=== PATIENT | male | born 1945 | race Caucasian/White ===

== ENCOUNTER 2019-03-12 14:36 | Inpatient (IN) | payer OTHER ==
--- OUTSIDE RECORDS SUMMARY | 2019-03-12 14:49 | XMS REPORT | Continuity of Care Document ---
:1945 Author Organization [employer] Care Team Providers Name Role Phone [employer] Unavailable Unavailable Problems Problem Status Onset Classification Date Comments Source Date Reported ABD PAIN Active 05/22/20 [facility] 17 ABD PAIN . Active 05/22/20 [facility] 17 WOUND Active 02/28/20 [facility] 17 LEG WEAKNESS Active 07/27/20 [facility] BILATERAL 16 WEAKNESS Active 05/30/20 [facility] 16 Discharge 05/30/20 06/02/2016 [facility] Diagnosis: 16 Fatigue Discharge 05/30/20 06/02/2016 [facility] Diagnosis: Acute 16 renal insufficiency Discharge 05/30/20 06/02/2016 [facility] Diagnosis: 16 Dehydration AMS Active 02/18/20 [facility] 15 SOB Active 06/08/20 [facility] 14 Anxiety Active Problem 06/13/2017 [facility] Outpatient Imaging [facility] Arthritis Active Problem 06/13/2017 [facility]patient Imaging [facility] Bipolar Resolved Problem 06/13/2017 [facility]patient Imaging [facility] CHF, acute Resolved Problem 06/13/2017 [facility]patient Imaging [facility] COPD Resolved Problem 06/13/2017 [facility] HS Outpatient Imaging [facility] COPD - Chronic Active Problem 06/13/2017 obstructive [facility], pulmonary disease HS Outpatient Imaging [facility] Depression Active Problem 06/13/2017 [facility] HS Outpatient Imaging [facility] Diabetes mellitus Active Problem 06/13/2017 [facility] Outpatient Imaging [facility] DM (Confirmed) Resolved Problem 06/13/2017 [facility] GERD - Active Problem 06/13/2017 Gastro-esophageal [facility], reflux disease [facility] Glaucoma Active Problem 06/13/2017 [facility]patient Imaging [facility] HTN - Resolved Problem 06/13/2017 Hypertension [facility], HS Outpatient Imaging [facility] Hypertension Active Problem 06/13/2017 [facility] Narcosis Active Problem 06/13/2017 [facility] Schizophrenia Resolved Problem 06/13/2017 [facility] Aortic aneurysm Resolved Problem 06/13/2017 [facility] Hyperlipidemia Active Problem 06/13/2017 [facility] Bleeding ulcer Resolved Problem 06/13/2017 [facility] CHR AIRWAY Active [facility] OBSTRUCT NEC ALTERED MENTAL Active [facility] STATUS UNSPECIFIED OPEN Active [facility] WOUND, RIGHT FOOT, SUBS NON-PRS CHRONIC Active [facility] ULCER OTH PRT RIGHT FOOT TYPE 2 DIABETES W Active [facility] DIABETIC PERIPHERAL AN TINEA UNGUIUM Active [facility] TYPE 2 DIABETES Active [facility] MELLITUS WITH DIABETIC P NON-PRS CHRONIC Active [facility] ULCER OTH PRT R FOOT STREET CORNS AND Active [facility] CALLOSITIES MUSCLE WEAKNESS Active [facility] (GENERALIZED) CHOLECYSTITIS, Active [facility] UNSPECIFIED Medications Medication Details Route Status Patient Ordering Order Source Instructions Provider Date fluconazole 100 mg 200 mg=2 tab, Active oral tablet PO, [id number], 0 2016 [facility] Refill(s) Saline Flush 0.9% 10 mL, Route: Inactive IVP, Drug 2016 [facility] Form: INJ, Dosing Weight 118.682, kg, Q8H, Start date: 06/10/17 16:00:00 CDT, Duration: 30 day, Stop date: 07/10/17 8:00:00 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 Lidocaine 5 mL, Route: Inactive Hydrochloride 10 INTRADERM, 2016 [facility] MG/ML Injectable Drug Form: Solution INJ, Dosing Weight 118.682, kg, ONCALL, Start date: 06/10/17 16:00:00 CDT, Duration: 30 day, Stop date: 07/10/17 14:59:00 CSTNotes: Preservative free. (Same as: Xylocaine MPF) Saline Flush 0.9% 10 mL, Route: Inactive IVP, Drug 2016 [facility] Form: INJ, Dosing Weight 118.682, kg, PRN, PRN Line Flush, Start date: 06/10/17 15:41:00 CDT, Duration: 30 day, Stop date: 07/10/17 14:40:00 CSTNotes: (Same as: BD Posiflush) Lidocaine 5 mL, Route: Inactive Hydrochloride 10 INTRADERM, 2016 [facility] MG/ML Injectable Dosing Weight Solution 118.682, kg, ONCALL, Start date: 06/10/17 14:00:00 CDT, Duration: 30 day, Stop date: 07/10/17 12:59:00 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 BD Normal Saline 10 mL, Route: Inactive Flush IV, Drug Form: 2017 [facility] INJ, Q8H-06, Start date: 06/10/17 14:00:00 CDT, Duration: 30 day, Stop date: 07/10/17 6:00:00 CSTNotes: (Same as: BD Posiflush) Saline Flush 0.9% 10 mL, Route: Inactive IVP, Drug 2016 [facility] Form: INJ, Dosing Weight 118.682, kg, PRN, PRN Line Flush, Start date: 06/10/17 13:26:00 CDT, Duration: 30 day, Stop date: 07/10/17 12:25:00 CSTNotes: (Same as: BD Posiflush) Lidocaine 5 mL, Route: Inactive Hydrochloride 10 INTRADERM, 2017 [facility] MG/ML Injectable Drug Form: Solution INJ, Dosing Weight 118.682, kg, ONCALL, Start date: 06/10/17 13:00:00 CDT, Duration: 30 day, Stop date: 07/10/17 11:59:00 CSTNotes: Preservative free. (Same as: Xylocaine MPF) Saline Flush 0.9% 10 mL, Route: Inactive IVP, Drug 2016 [facility] Form: INJ, Dosing Weight 118.682, kg, PRN, PRN Line Flush, Start date: 06/10/17 12:59:00 CDT, Duration: 30 day, Stop date: 07/10/17 11:58:00 CSTNotes: (Same as: BD Posiflush) Protonix 40 mg, 1 tab, No Longer Route: PO, Active 2016 [facility] Drug form: ECTAB, Before Dinner, Dosing Weight 118.682, kg, Start date: 06/09/17 16:30:00 CDT, Duration: 30 day, Stop date: 07/08/17 16:30:00 CSTNotes: Tablet should not be chewed or crushed. (Same as: Protonix) Miralax 17 gm, 1 pkt, No Longer Route: PO, Active 2016 [facility] Drug form: PWDR, Daily, Dosing Weight 118.682, kg, PRN Constipation, Start date: 06/09/17 12:11:00 CDT, Duration: 30 day, Stop date: 07/09/17 12:10:00 CSTNotes: Dissolve in 8 oz of water or juice. (Same as: Miralax) Maalox Advanced 15 mL, Route: No Longer Regular Strength PO, Drug Form: Active 2016 [facility] SUSP SUSP, Dosing Weight 118.682, kg, TID, PRN as needed for indigestion, Start date: 06/06/17 21:12:00 CDT, Duration: 30 day, Stop date: 07/06/17 21:11:00 CSTNotes: (aluminum hydroxide-magn esium hyd-simethicon e [phone]/5 ml 30 ml ud [place]) Betaxolol 2.5 2 drp, Route: Inactive MG/ML Ophthalmic BOTH EYES, 2016 [facility] Suspension BID, Drug [Betoptic S] form: SUSP, Start date: 06/05/17 17:00:00 CDT, Duration: 30 day, Stop date: 07/05/17 9:00:00 CDT Zosyn 3.375 gm, No Longer Route: IVPB, Active 2016 [facility] [id number], Dosing Weight 118.682, kg, CrCl >=20 ml/min infuse over 4 hours, Start date: 06/03/17 11:00:00 CDT, Stop date: 06/25/17 19:00:00 CDT, ABX Indication: Fever of Unknown Source 0-60 days of ageNotes: (Same as: Zosyn) Dosing based on Piperacillin component MEDICATION WASTE Product Size: 3375 mg Product Wasted: ___ mg Hydralazine 10 mg, 0.5 mL, No Longer Route: IV, Active 2016 [facility] Drug form: INJ, Q6H, Dosing Weight 118.682, kg, PRN Hypertension, Start date: 06/03/17 2:17:00 CDT, Duration: 30 day, Stop date: 07/03/17 2:16:00 CDTNotes: (Same as: Apresoline) Push over 5 minutes Diflucan 200 mg, 2 tab, No Longer Route: PO, Active 2016 [facility] Drug form: TAB, [id number], Dosing Weight 118.682, kg, Start date: 06/01/17 15:00:00 CDT, Stop date: 06/25/17 15:00:00 CDTNotes: (Same as: Diflucan) Lasix 20 mg, 2 mL, Inactive Route: IVP, 2016 [facility] Drug form: INJ, ONCE, Dosing Weight 118.682, kg, Start date: 06/01/17 10:04:00 CDT, Stop date: 06/01/17 10:04:00 CDTNotes: (Same as: Lasix) Diflucan 200 mg, 100 No Longer mL, Route: Active 2016 [facility] IVPB, Drug form: INJ, [id number], Dosing Weight 118.682, kg, Start date: 05/31/17 17:00:00 CDT, Duration: 30 day, Stop date: 06/29/17 17:00:00 CDTNotes: (Same as: Diflucan) Do not refrigerate Flagyl 500 mg, 100 No Longer mL, Route: Active 2016 [facility] IVPB, Drug form: INJ, [id number], Dosing Weight 118.682, kg, Start date: 05/31/17 16:00:00 CDT, Duration: 10 day, Stop date: 06/10/17 8:00:00 CDT, ABX Indication: Intra-abdomina l InfectionNotes : (Same as: Flagyl) Avoid alcohol. Lovenox 30 mg, Route: Inactive SUB-Q, Drug 2016 [facility] form: INJ, [id number], Dosing Weight 118.682, kg, For CrCl Buspirone 5 mg, 1 tab, No Longer Route: PO, Active 2016 [facility] Drug form: TAB, BID, Dosing Weight 118.682, kg, Start date: 05/28/17 21:00:00 CDT, Duration: 30 day, Stop date: 06/27/17 9:00:00 CDTNotes: (Same As: BuSpar) Acetaminophen 650 mg, 2 tab, No Longer Route: PO, Active 2016 [facility] Drug form: TAB, Q6H, Dosing Weight 118.682, kg, PRN For Temp > 100.4 F, Start date: 05/28/17 0:32:00 CDT, Duration: 30 day, Stop date: 06/27/17 0:31:00 CDTNotes: Do not exceed 4 gm/day. (Same as: Tylenol) Dulcolax Laxative 10 mg, 1 supp, No Longer Route: VA, Active 2016 [facility] Drug form: SUPP, ONCE, Dosing Weight 118.682, kg, PRN as needed for constipation, Start date: 05/26/17 15:24:00 CDTNotes: (Same As: Dulcolax, Bisco-Lax) timolol ophthalmic 1 drp, Route: No Longer BOTH EYES, Active 2016 [facility] QAM, Drug form: SOLN, Start date: 05/26/17 14:00:00 CDT, Duration: 30 day, Stop date: 06/25/17 9:00:00 CDTNotes: (Same As: Timoptic, Betimol) magnesium citrate 300 ml, Route: Inactive 58.2 MG/ML Oral PO, Drug Form: 2016 [facility] Solution LIQ, Dosing Weight 118.682, kg, ONCE, Start date: 05/25/17 13:32:00 CDT, Stop date: 05/25/17 13:32:00 CDTNotes: (Same as: Citrate of Magnesia) Concentration: 1.745 gm / 30 mL Albuterol 0.833 3 mL, Route: No Longer MG/ML / INHALATION, Active 2016 [facility] Ipratropium Drug Form: [place] 0.167 SOLN, Dosing MG/ML Inhalant Weight Solution 118.682, kg, RQ4H, Start date: 05/25/17 11:00:00 CDT, Duration: 30 day, Stop date: 06/24/17 7:00:00 CDTNotes: (Same as: Duoneb) Budesonide 0.25 0.5 mg, 2 mL, No Longer MG/ML Inhalant Route: NEB, Active 2016 [facility] Solution Drug form: [Pulmicort] SUSP, RBID, Dosing Weight 118.682, kg, Start date: 05/25/17 7:57:00 CDT, Duration: 30 day, Stop date: 06/23/17 20:00:00 CDTNotes: (Same As: Pulmicort) Budesonide 0.25 0.5 mg, 2 mL, No Longer MG/ML Inhalant Route: NEB, Active 2016 [facility] Solution Drug form: [Pulmicort] SUSP, RBID, Dosing Weight 118.682, kg, Start date: 05/24/17 20:00:00 CDT, Duration: 30 day, Stop date: 06/23/17 8:00:00 CDTNotes: (Same As: Pulmicort) Dextrose 50% in 50 mL, Route: No Longer Water IV IVP, Start Active 2016 [facility] date: 05/24/17 19:24:00 CDT, Stop date: 05/24/17 19:24:00 CDT Dextrose 25 gm, Route: Inactive IVPB, ONCE, 2016 [facility] Dosing Weight 118.682, kg, Start date: 05/24/17 18:34:00 CDT, Stop date: 05/24/17 18:34:00 CDT Insulin regular 15 unit, Inactive Route: IV, 2016 [facility] ONCE, Dosing Weight 118.682, kg, Priority: NOW, Start date: 05/24/17 18:23:00 CDT, Stop date: 05/24/17 18:23:00 CDT sodium chloride 1,000 mL, No Longer 0.9% 1000 ml INJ Rate: 75 Active 2016 [facility] 1,000 mL ml/hr, Infuse over: 13.3 hr, Route: IV, Dosing Weight 118.682 kg, Total Volume: 1,000, Start date: 05/24/17 12:41:00 CDT, Stop date: 06/23/17 12:40:00 CDT influenza virus 0.5 mL, Route: No Longer vaccine, IM, Drug Form: Active 2016 [facility] inactivated SUSP, Daily, Start date: 05/24/17 9:00:00 CDT, Duration: 1 doses or times, Stop date: 05/24/17 9:00:00 CDTNotes: (Same as: Fluzone Quadrivalent, Fluarix Quadrivalent) For 3 years of age and older (0.5 mL IM) Shake well before use Januvia 100 mg, 1 tab, No Longer Route: PO, Active 2016 [facility] Drug form: TAB, Daily, Dosing Weight 118.682, kg, Start date: 05/24/17 9:00:00 CDT, Stop date: 06/22/17 9:00:00 CDTNotes: (Same as: Januvia) omega-3 1,000 mg, 1 No Longer polyunsaturated cap, Route: Active 2016 [facility] fatty acids PO, Drug form: CAP, Daily, Dosing Weight 118.682, kg, Start date: 05/24/17 9:00:00 CDT, Duration: 30 day, Stop date: 06/22/17 9:00:00 CDTNotes: (Same as: MaxEPA, [place] 3 fish oil ) Non-Formulary Drug Vitamin D3 2,000 No Longer IntlUnit, 2 Active 2016 [facility] tab, Route: PO, Drug form: TAB, Daily, Dosing Weight 118.682, kg, Start date: 05/24/17 9:00:00 CDT, Duration: 30 day, Stop date: 06/22/17 9:00:00 CDTNotes: Same as : Vitamin D3 venlafaxine 75 mg, 2 tab, No Longer Route: PO, Active 2016 [facility] Drug form: TAB, Daily, Dosing Weight 118.682, kg, Start date: 05/24/17 9:00:00 CDT, Duration: 30 day, Stop date: 06/22/17 9:00:00 CDTNotes: (Same As: Effexor) Albuterol 0.833 3 ml, Route: No Longer MG/ML / NEB, Drug Active 2016 [facility] Ipratropium Form: SOLN, [place] 0.167 Dosing Weight MG/ML Inhalant 118.682, kg, Solution [DuoNeb] Q4H, PRN Respiratory Protocol, Start date: 05/24/17 8:46:00 CDT, Duration: 30 day, Stop date: 06/23/17 8:45:00 CDTNotes: (Same as: Duoneb) tiotropium 0.018 18 microgram, Inactive MG/ACTUAT Inhalant 1 inhalation, 2016 [facility] Powder [Spiriva] Route: INHALATION, Drug form: CAP, RDaily, Dosing Weight 118.682, kg, Start date: 05/24/17 8:00:00 CDT, Duration: 30 day, Stop date: 06/22/17 8:00:00 CDTNotes: (Same As: Spiriva). Thyroxine 50 microgram, No Longer 1 tab, Route: Active 2016 [facility] PO, Drug form: TAB, [id number], Dosing Weight 118.682, kg, Start date: 05/24/17 6:30:00 CDT, Duration: 30 day, Stop date: 06/22/17 6:30:00 CDTNotes: Take 1 hour before or 2 hours after meal; Enteral feeds may interefere with the absorption of this medication.(Sa me as:Levothroid, Synthroid) Trazodone 25 mg, 0.5 No Longer tab, Route: Active 2016 [facility] PO, Drug form: TAB, Bedtime, Dosing Weight 118.682, kg, Start date: 05/23/17 21:00:00 CDT, Stop date: 06/21/17 21:00:00 CDTNotes: (Same As: Desyrel) Risperidone 2 mg, 2 tab, No Longer Route: PO, Active 2016 Drug form: TAB, Bedtime, Dosing Weight 118.682, kg, Start date: 05/23/17 21:00:00 CDT, Duration: 30 day, Stop date: 06/21/17 21:00:00 CDTNotes: (Same as: Risperdal) latanoprost 0.05 1 drp, Route: No Longer MG/ML Ophthalmic BOTH EYES, Active 2016 [facility] Solution Bedtime, Drug form: SOLN, Start date: 05/23/17 21:00:00 CDT, Duration: 30 day, Stop date: 06/21/17 21:00:00 CDTNotes: Keep refrigerated. (Same as:Xalatan) Opened bottle may be stored at room temperature for 6 weeks Insulin Glargine 30 unit, 0.3 No Longer 100 UNT/ML mL, Route: Active 2016 [facility] Injectable SUB-Q, Drug Solution [Lantus] form: SOLN, Bedtime, Dosing Weight 118.682, kg, Start date: 05/23/17 21:00:00 CDT, Duration: 30 day, Stop date: 06/21/17 21:00:00 CDTNotes: (Same as: Lantus) Do not hold insulin without contacting prescriber WASTE: F/P - Black; E - Municipal Trash Bin "single patient use only" Fenofibrate 145 mg, 1 tab, No Longer Route: PO, Active 2016 [facility] Drug form: TAB, Bedtime, Dosing Weight 118.682, kg, Start date: 05/23/17 21:00:00 CDT, Duration: 30 day, Stop date: 06/21/17 21:00:00 CDTNotes: (Same as: Tricor) 24 HR Divalproex 500 mg, 1 tab, No Longer Sodium 500 MG Route: PO, Active 2016 [facility] Extended Release Drug form: Tablet ERTAB, Bedtime, Dosing Weight 118.682, kg, Start date: 05/23/17 21:00:00 CDT, Duration: 30 day, Stop date: 06/21/17 21:00:00 CDTNotes: (Same as: Depakote ER) Once daily dosing; indicated for migraines. Divalproex sodium extended-relea se tab. Do not chew or crush. "Do Not Crush" Ipratropium 500 microgram, No Longer 2.5 mL, Route: Active 2016 [facility], Drug form: SOLN, RQID, Dosing Weight 118.682, kg, Start date: 05/23/17 19:00:00 CDT, Duration: 30 day, Stop date: 06/22/17 15:00:00 CDTNotes: SEE RT DOCUMENTATION (Same as:Atrovent) Zosyn + sodium 3.375 gm, No Longer chloride 0.9% INJ Route: IVPB, Active 2016 [facility] 100 mL [id number], Start date: 05/23/17 17:00:00 CDT, Duration: 10 day, Stop date: 06/02/17 9:00:00 CDT, ABX Indication: Other (specify in Comments)Notes : (Same as: Zosyn) Dosing based on Piperacillin component MEDICATION WASTE Product Size: 3375 mg Product Wasted: ___ mg Brimonidine 1 drp, Route: No Longer tartrate 1.5 MG/ML BOTH EYES, Active 2016 [facility] Ophthalmic BID, Drug Solution form: SOLN, Start date: 05/23/17 17:00:00 CDT, Duration: 30 day, Stop date: 06/22/17 9:00:00 CDTNotes: (Same As: Alphagan) Betaxolol 2.5 2 drp, Route: No Longer MG/ML Ophthalmic BOTH EYES, Active 2016 [facility] Suspension BID, Drug [Betoptic S] form: SUSP, Start date: 05/23/17 17:00:00 CDT, Duration: 30 day, Stop date: 06/22/17 9:00:00 CDT Symbicort 160/4.5 2 puff, Route: No Longer inhalation aerosol INHALATION, Active 2016 [facility] with adapter Drug Form: AERO/A, Dosing Weight 118.682, kg, RQ12H, Start date: 05/23/17 16:00:00 CDT, Duration: 30 day, Stop date: 06/22/17 4:00:00 CDTNotes: (Same as: Symbicort) WASTE: Aerosol - Return to Pharmacy Zosyn 2.25 gm, Inactive Route: IV, 2016 [facility] Q8H, Dosing Weight 109.545, kg, Start date: 05/23/17 16:00:00 CDT, Duration: 30 day, Stop date: 06/22/17 8:00:00 CDT, ABX Indication: Intra-abdomina l Infection metoprolol 25 mg, 1 tab, No Longer tartrate Route: PO, Active 2016 [facility] Drug form: TAB, Q8H-06, Dosing Weight 118.682, kg, Start date: 05/23/17 14:00:00 CDT, Duration: 30 day, Stop date: 06/22/17 6:00:00 CDTNotes: (Same as: Lopressor) Zosyn 2.25 gm, Inactive Route: IVPB, 2016 [facility] Drug form: PDR/INJ, ABXQ8H, Dosing Weight 118.682, kg, Start date: 05/23/17 13:00:00 CDT, Duration: 10 day, Stop date: 06/02/17 5:00:00 CDT, ABX Indication: Intra-abdomina l Infection Buspirone 5 mg, Route: No Longer PO, Drug form: Active 2016 [facility] TAB, TID, Dosing Weight 118.682, kg, Start date: 05/23/17 13:00:00 CDT, Duration: 30 day, Stop date: 06/22/17 9:00:00 CDTNotes: (Same As: BuSpar) Aspirin 81 mg, 1 tab, No Longer Route: PO, Active 2016 [facility] Drug form: ECTAB, Daily, Dosing Weight 118.682, kg, Start date: 05/23/17 13:00:00 CDT, Duration: 30 day, Stop date: 06/22/17 9:00:00 CDTNotes: Do not crush or chew. (Same As: Ecotrin) Amlodipine 10 mg, 2 tab, No Longer Route: PO, Active 2016 [facility] Drug form: TAB, Daily, Dosing Weight 118.682, kg, Start date: 05/23/17 13:00:00 CDT, Duration: 30 day, Stop date: 06/22/17 9:00:00 CDTNotes: (Same as: Norvasc) Amiodarone 200 mg, 1 tab, No Longer Route: PO, Active 2016 [facility] Drug form: TAB, Daily, Dosing Weight 118.682, kg, Start date: 05/23/17 13:00:00 CDT, Duration: 30 day, Stop date: 06/22/17 9:00:00 CDTNotes: (Same as: Cordarone) Alprazolam 0.5 mg, 1 tab, No Longer Route: PO, Active 2016 [facility] Drug form: TAB, Q8H, Dosing Weight 118.682, kg, PRN Anxiety, Start date: 05/23/17 12:42:00 CDT, Duration: 30 day, Stop date: 06/22/17 12:41:00 CDTNotes: With food or milk (Same as: Xanax) Insulin Lispro 2 unit, 0.02 No Longer mL, Route: Active 2016 [facility] SUB-Q, Drug form: SOLN, Sliding Scale, Dosing Weight 118.682, kg, PRN Blood Glucose Results, Start date: 05/23/17 12:40:00 CDT, Duration: 30 day, Stop date: 06/22/17 12:39:00 CDTNotes: (Same as: Humalog ) Roll in palms of hands gently; Do not shake `vigorously. "Single Patient Use Only " (Restricted to patients requiring a dose > 60 units) WASTE: F/P - Black; E - [employer] Assist Trash Bin Stable for 28 days at room temperature. Expires in days from Date Dextrose 50% 12.5 gm, 25 No Longer Syringe mL, Route: Active 2016 [facility] IVP, Drug Form: INJ, Dosing Weight 118.682, kg, PRN, PRN Blood Glucose Results, Start date: 05/23/17 12:40:00 CDT, Duration: 30 day, Stop date: 06/22/17 12:39:00 CDT Glucagon 1 mg, Route: No Longer IM, Drug form: Active 2016 [facility] PDR/INJ, PRN, Dosing Weight 118.682, kg, PRN Blood Glucose Results, Start date: 05/23/17 12:40:00 CDT, Duration: 30 day, Stop date: 06/22/17 12:39:00 CDT Baclofen 10 mg, 1 tab, No Longer Route: PO, Active 2016 [facility] Drug form: TAB, Q8H, Dosing Weight 118.682, kg, PRN as needed for muscle spasm, Start date: 05/23/17 12:15:00 CDT, Duration: 30 day, Stop date: 06/22/17 12:14:00 CDTNotes: (Same As: Lioresal) Aspirin 81 MG 81 mg=1 tab, No Longer Chewable Tablet PO, Daily, Active 2016 [facility] tab, 0 Refill(s) 24 HR Divalproex 500 mg=1 tab, Active Sodium 500 MG PO, Bedtime, # 2017 [facility] Extended Release 30 tab, 0 Tablet Refill(s) Zosyn + sodium 3.375 gm, Inactive chloride 0.9% INJ Route: IVPB2016 [facility] 100 mL [id number], Start date: 05/23/17 11:00:00 CDT, Duration: 30 day, Stop date: 06/22/17 3:00:00 CDT, ABX Indication: Intra-abdomina l InfectionNotes : (Same as: Zosyn) Dosing based on Piperacillin component MEDICATION WASTE Product Size: 3375 mg Product Wasted: ___ mg Zosyn + sodium 3.375 gm, Inactive chloride 0.9% INJ Route: IV2016 [facility] 100 mL ONCE, Start date: 05/23/17 10:21:00 CDT, Stop date: 05/23/17 10:21:00 CDT, ABX Indication: Intra-abdomina l InfectionNotes : (Same as: Zosyn) Dosing based on Piperacillin component MEDICATION WASTE Product Size: 3375 mg Product Wasted: ___ mg Morphine 2 mg, 1 mL, No Longer Route: IVP, Active 2016 [facility] Drug form: SOLN, Q4H, Dosing Weight 109.545, kg, PRN Pain Score 7-10, Priority: STAT, Start date: 05/23/17 9:57:00 CDT, Stop date: 06/22/17 9:56:00 CDT Zofran 4 mg, 2 mL, No Longer Route: IVP, Active 2016 [facility] Drug form: INJ, Q6H, Dosing Weight 109.545, kg, PRN Nausea, Priority: STAT, Start date: 05/23/17 9:57:00 CDT, Duration: 30 day, Stop date: 06/22/17 9:56:00 CDTNotes: (Same as: Zofran) MEDICATION WASTE Product Size: 4 mg Product Wasted: ___ mg Morphine 4 mg, Route: Inactive IVP, ONCE, 2016 [facility] Dosing Weight 109.545, kg, Priority: STAT, Start date: 05/23/17 9:27:00 CDT, Stop date: 05/23/17 9:27:00 CDT Omnipaque 300 100 mL, Route: Inactive injectable IVP, Dosing 2016 [facility] solution Weight 109.545, kg, ONCALL, GFR > 45 mL/min, STAT, Start date: 05/23/17 6:50:00 CDT, Duration: 1 doses or times Morphine 4 mg, 1 mL, Inactive Route: IVP, 2016 [facility] Drug form: SOLN, ONCE, Dosing Weight 109.545, kg, Priority: STAT, Start date: 05/23/17 6:10:00 CDT, Stop date: 05/23/17 6:10:00 CDTNotes: (Same as:MORPhine Sulfate) Saline Flush 0.9% 10 mL, Route: No Longer IVP, Drug Active 2016 [facility] Form: INJ, Dosing Weight 109.545, kg, PRN, PRN Line Flush, Start date: 05/23/17 6:09:00 CDT, Duration: 30 day, Stop date: 06/22/17 6:08:00 CDTNotes: (Same as: BD Posiflush) tiotropium 0.018 18 microgram, No Longer MG/ACTUAT Inhalant 1 inhalation, Active 2015 [facility] Powder [Spiriva] Route: INHALATION, Drug form: CAP, Daily, Dosing Weight 109.545, kg, Start date: 07/29/16 9:00:00 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 One-A-Day Men 50 1 tab, Route: No Longer Plus PO, Dosing Active 2015 [facility] Weight 109.545, kg, Daily, Start date: 07/29/16 9:00:00 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, Duration: 30 day, Stop date: 08/27/16 9:00:00 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 Aspirin 81 mg, Route: No Longer PO, Daily, Active 2015 [facility] Dosing Weight 109.545, kg, Start date: 07/29/16 9:00:00 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, Duration: 30 day, Stop date: 08/27/16 9:00:00 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 Levemir FlexPen 15 unit, 0.15 No Longer mL, Route: Active 2015 [facility] SUB-Q, Drug form: INJ, Bedtime, Start date: 07/28/16 21:00:00 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, Duration: 30 day, Stop date: 08/26/16 21:00:00 CSTNotes: Same as Levemir Do not hold insulin without contacting prescriber WASTE: F/P - Black; E - Municipal Trash Bin "single patient use only" Trazodone 50 mg, 1 tab, No Longer Route: PO, Active 2015 [facility] Drug form: TAB, Bedtime, Dosing Weight 109.545, kg, Start date: 07/28/16 21:00:00 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, Duration: 30 day, Stop date: 08/26/16 21:00:00 CSTNotes: (Same As: Desyrel) Risperidone 2 mg, 2 tab, No Longer Route: PO, Active 2015 [facility] Drug form: TAB, Bedtime, Dosing Weight 109.545, kg, Start date: 07/28/16 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, Duration: 30 day, Stop date: 08/27/16 9:00:00 CSTNotes: (Same as: Colace) (Do Not Crush) Brimonidine 1 drp, Route: No Longer tartrate 1.5 MG/ML BOTH EYES, Active 2015 [facility] Ophthalmic BID, Drug Solution form: SOLN, Start date: 07/28/16 17:00:00 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, Duration: 30 day, Stop date: 08/27/16 9:00:00 CSTNotes: (Same As: Alphagan) Betaxolol 2.5 2 drp, Route: Inactive MG/ML Ophthalmic BOTH EYES, 2015 [facility] Suspension BID, Drug [Betoptic S] form: SUSP, Start date: 07/28/16 17:00:00 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, Duration: 30 day, Stop date: 08/27/16 9:00:00 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 timolol ophthalmic 1 drp, Route: No Longer BOTH EYES, Active 2015 [facility] BID, Drug form: SOLN, Start date: 07/28/16 17:00:00 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, Stop date: 08/27/16 9:00:00 CSTNotes: (Same As: Timoptic, Betimol) Buspirone 5 mg, 1 tab, No Longer Route: PO, Active 2015 [facility] Drug form: TAB, TID, Dosing Weight 109.545, kg, Start date: 07/28/16 15:00:00 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, Duration: 30 day, Stop date: 08/27/16 9:00:00 CSTNotes: (Same As: BuSpar) Ipratropium 500 microgram, Inactive Route: NEB, 2015 [facility] QID, Dosing Weight 109.545, kg, Start date: 07/28/16 13:00:00 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, Duration: 30 day, Stop date: 08/27/16 9:00:00 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 Alprazolam 0.5 mg, Route: Inactive PO, TID, 2015 [facility] Dosing Weight 109.545, kg, Start date: 07/28/16 13:00:00 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, Duration: 30 day, Stop date: 08/27/16 9:00:00 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 Thyroxine 50 microgram, No Longer 1 tab, Route: Active 2015 [facility] PO, Drug form: TAB, [id number], Dosing Weight 109.545, kg, Start date: 07/28/16 11:30:00 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, Duration: 30 day, Stop date: 08/27/16 6:30:00 CSTNotes: Take 1 hour before or 2 hours after meal; Enteral feeds may interefere with the absorption of this medication.(Sa me as:Levothroid, Synthroid) multivitamin with 1 tab, Route: No Longer minerals PO, Drug Form: Active 2015 [facility] TAB, Daily, Start date: 07/28/16 11:00:00 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, Duration: 30 day, Stop date: 08/27/16 9:00:00 CSTNotes: Give with food. (Same As: Stress 600 with Zinc) WASTE: F/P - Black; E - Municipal Trash Bin omega-3 1,000 mg, 1 No Longer polyunsaturated cap, Route: Active 2015 [facility] fatty acids PO, Drug form: CAP, Daily, Dosing Weight 109.545, kg, Start date: 07/28/16 11:00:00 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, Duration: 30 day, Stop date: 08/27/16 9:00:00 CSTNotes: (Same as: Lovaza, formally named [place]) "Do Not Crush" Lisinopril 20 mg, 1 tab, No Longer Route: PO, Active 2015 [facility] Drug form: TAB, BID, Dosing Weight 109.545, kg, Start date: 07/28/16 11:00:00 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, Duration: 30 day, Stop date: 08/27/16 9:00:00 CSTNotes: (Same as: Prinivil, Zestril) metoprolol 25 mg, 1 tab, No Longer tartrate Route: PO, Active 2015 [facility] Drug form: TAB, Q12H, Dosing Weight 109.545, kg, Start date: 07/28/16 11:00:00 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, Duration: 30 day, Stop date: 08/27/16 9:00:00 CSTNotes: (Same as: Lopressor) Furosemide 20 mg, 1 tab, No Longer Route: PO, Active 2015 [facility] Drug form: TAB, Daily, Dosing Weight 109.545, kg, Start date: 07/28/16 11:00:00 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, Duration: 30 day, Stop date: 08/27/16 9:00:00 CSTNotes: (Same as: Lasix) May cause GI upset. Give with food or milk. Fenofibrate 145 mg, 1 tab, No Longer Route: PO, Active 2015 [facility] Drug form: TAB, Daily, Dosing Weight 109.545, kg, Start date: 07/28/16 11:00:00 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, Duration: 30 day, Stop date: 08/27/16 9:00:00 CSTNotes: (Same as: Tricor) Vitamin D3 2,000 No Longer IntlUnit, 2 Active 2015 [facility] tab, Route: PO, Drug form: TAB, Daily, Dosing Weight 109.545, kg, Start date: 07/28/16 11:00:00 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, Duration: 30 day, Stop date: 08/27/16 9:00:00 CSTNotes: Same as : Vitamin D3 Vitamin C 1,000 mg, 2 No Longer tab, Route: Active 2015 [facility] PO, Drug form: TAB, Daily, Dosing Weight 109.545, kg, Start date: 07/28/16 11:00:00 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, Duration: 30 day, Stop date: 08/27/16 9:00:00 CSTNotes: (Same as: Vitamin C) Amlodipine 10 mg, 2 tab, No Longer Route: PO, Active 2015 [facility] Drug form: TAB, Daily, Dosing Weight 109.545, kg, Start date: 07/28/16 11:00:00 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, Duration: 30 day, Stop date: 08/27/16 9:00:00 CSTNotes: (Same as: Norvasc) Amiodarone 200 mg, 1 tab, No Longer Route: PO, Active 2015 [facility] Drug form: TAB, Daily, Dosing Weight 109.545, kg, Start date: 07/28/16 11:00:00 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, Duration: 30 day, Stop date: 08/27/16 9:00:00 CSTNotes: (Same as: Cordarone) venlafaxine 75 mg, 2 tab, No Longer Route: PO, Active 2015 [facility] Drug form: TAB, Daily, Dosing Weight 109.545, kg, Start date: 07/28/16 11:00:00 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, Duration: 30 day, Stop date: 08/27/16 9:00:00 CSTNotes: (Same As: Effexor) Symbicort 160/4.5 2 puff, Route: No Longer inhalation aerosol INHALATION, Active 2015 [facility] with adapter Drug Form: AERO/A, Dosing Weight 109.545, kg, RBID, Start date: 07/28/16 10:32:00 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, Duration: 30 day, Stop date: 08/27/16 8:00:00 CSTNotes: (Same as: Symbicort) WASTE: Aerosol - Return to Pharmacy Insulin, Aspart, 3 unit, 0.03 No Longer Human mL, Route: Active 2015 [facility] SUB-Q, Drug form: SOLN, Bedtime, Dosing Weight 109.545, kg, PRN Blood Glucose Results, Start date: 07/28/16 10:01:00 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, Duration: 30 day, Stop date: 08/27/16 10:00:00 CSTNotes: Roll in palms of hands gently; Do not shake vigorously. (Same as: NovoLOG) "single patient use only" WASTE: F/P - Black; E - Municipal Trash Bin Stable for 28 days at room temperature. Expires in days from Date Dextrose 50% 12.5 gm, 25 No Longer Syringe mL, Route: Active 2015 [facility] IVP, Drug Form: INJ, Dosing Weight 109.545, kg, PRN, PRN Blood Glucose Results, Start date: 07/28/16 10:01:00 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, Duration: 30 day, Stop date: 08/27/16 10:00:00 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 Glucagon 1 mg, Route: No Longer IM, Drug form: Active 2015 [facility] PDR/INJ, PRN, Dosing Weight 109.545, kg, PRN Blood Glucose Results, Start date: 07/28/16 10:01:00 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, Duration: 30 day, Stop date: 08/27/16 10:00:00 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 Enoxaparin 40 mg, 0.4 mL, No Longer Route: SUB-Q, 2015 [facility] Drug form: INJ, [id number], Dosing Weight 109.545, kg, Start date: 07/28/16 10:00:00 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, Duration: 30 day, Stop date: 08/26/16 10:00:00 CSTNotes: (Same as: Lovenox) Baclofen 10 mg, 1 tab, No Longer Route: PO, 2015 [facility] Drug form: TAB, Q8H, Dosing Weight 109.545, kg, PRN Spasm, Start date: 07/28/16 9:58:00 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, Duration: 30 day, Stop date: 08/27/16 9:57:00 CSTNotes: (Same As: Lioresal) Saline Flush 0.9% 10 ml, Route: No Longer IVP, Drug Active 2015 [facility] Form: INJ, Dosing Weight 97.273, kg, Q12H, Start date: 07/28/16 9:00:00 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, Duration: 30 day, Stop date: 08/26/16 21:00:00 CSTNotes: (Same as: BD Posiflush) aspirin 81 mg 81 mg, 1 tab, No Longer tablet, enteric Route: PO, 2015 [facility] coated Drug form: ECTAB, Daily, Dosing Weight 97.273, kg, Start date: 07/28/16 9:00:00 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, Duration: 30 day, Stop date: 08/26/16 9:00:00 CSTNotes: Do not crush or chew. (Same As: Ecotrin) Famotidine 20 mg, 1 tab, No Longer Route: PO, Active 2015 [facility] Drug form: TAB, Q12H, Dosing Weight 97.273, kg, Start date: 07/28/16 9:00:00 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, Duration: 30 day, Stop date: 08/26/16 21:00:00 CSTNotes: (Same as: Pepcid) Alprazolam 0.5 MG 0.5 mg, 1 tab, No Longer Oral Tablet Route: PO, Active 2015 [facility] [Xanax] Drug form: TAB, TID, Dosing Weight 107.898, kg, PRN Anxiety, Start date: 07/28/16 8:20:00 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, Duration: 30 day, Stop date: 08/27/16 8:19:00 CSTNotes: With food or milk (Same as: Xanax) Saline Flush 0.9% 10 ml, Route: No Longer IVP, Drug Active 2015 [facility] Form: INJ, Dosing Weight 97.273, kg, PRN, PRN Line Flush, Start date: 07/28/16 1:29:00 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, Duration: 30 day, Stop date: 08/27/16 1:28:00 CSTNotes: (Same as: BD Posiflush) Ondansetron 4 mg, 2 mL, No Longer Route: IVP, Active 2015 [facility] Drug form: INJ, Q8H, Dosing Weight 97.273, kg, PRN Nausea & Vomiting, Start date: 07/28/16 1:29:00 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, Duration: 30 day, Stop date: 08/27/16 1:28:00 CSTNotes: (Same as: Zofran) MEDICATION WASTE Product Size: 4 mg Product Wasted: ___ mg Sodium Chloride 1,000 mL, No Longer 0.154 MEQ/ML Rate: 40 Active 2015 [facility] Injectable ml/hr, Infuse Solution over: 25 hr, Route: IV, Dosing Weight 97.273 kg, Total Volume: 1,000, Start date: 07/28/16 1:29:00 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, Stop date: 08/27/16 1:28:00 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 Aspirin 324 mg, 4 tab, No Longer Route: CHEW, Active 2015 [facility] Drug form: CHEWTAB, ONCE, Dosing Weight 97.273, kg, Priority: STAT, Start date: 07/27/16 23:47:00 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, Stop date: 07/27/16 23:47:00 CSTNotes: Take with food. Sodium Chloride 1,000 mL, Inactive 0.154 MEQ/ML 1,000 ml/hr, 2015 Injectable Infuse Over: 1 Solution hr, Route: IV, 1,000, Drug form: INJ, ONCE, Priority: STAT, Dosing Weight 97.727 kg, Start date: 05/30/16 10:49:00 CDT, Duration: 1 doses or times, Stop date: 05/30/16 10:49:00 CDT Fenofibrate 200 mg, Route: No Longer PO, Daily, Active 2014 [facility] Dosing Weight 120, kg, Start date: 02/18/15 9:00:00, Duration: 30 day, Stop date: 03/19/15 9:00:00 pantoprazole 40 mg, 1 tab, No Longer Route: PO, Active 2014 [facility] Drug form: ECTAB, Daily, Dosing Weight 120, kg, Start date: 02/18/15 9:00:00, Duration: 30 day, Stop date: 03/19/15 9:00:00Notes: Tablet should not be chewed or crushed. (Same as: Protonix) Thyroxine 50 microgram, No Longer 1 tab, Route: Active 2014 [facility] PO, Drug form: TAB, Daily, Dosing Weight 120, kg, Start date: 02/18/15 6:30:00, Duration: 30 day, Stop date: 03/19/15 6:30:00Notes: Take 1 hour before or 2 hours after meal; Enteral feeds may interefere with the absorption of this medication.(Sa me as:Levothroid, Synthroid) Alprazolam 0.5 mg, 1 tab, Inactive Route: PO, 2014 [facility] Drug form: TAB, ONCE, Dosing Weight 120, kg, Start date: 02/18/15 1:01:00, Stop date: 02/18/15 1:01:00Notes: With food or milk (Same as: Xanax) TriCor 192 mg, 4 tab, No Longer Route: PO, Active 2014 [facility] Drug form: TAB, Daily, Start date: 02/17/15 21:00:00, Duration: 30 day, Stop date: 03/18/15 21:00:00Notes: (Same as: Tricor) Risperidone 2 mg, 2 tab, No Longer Route: PO, Active 2014 [facility] Drug form: TAB, Bedtime, Dosing Weight 120, kg, Start date: 02/17/15 21:00:00, Duration: 30 day, Stop date: 03/18/15 21:00:00Notes: (Same as: Risperdal) Lisinopril 20 mg, 1 tab, No Longer Route: PO, Active 2014 [facility] Drug form: TAB, BID, Dosing Weight 120, kg, Start date: 02/17/15 21:00:00, Duration: 30 day, Stop date: 03/19/15 9:00:00Notes: (Same as: Prinivil, Zestril) latanoprost 0.05 1 drp, Route: No Longer MG/ML Ophthalmic BOTH EYES, Active 2014 [facility] Solution Bedtime, Drug form: SOLN, Start date: 02/17/15 21:00:00, Duration: 30 day, Stop date: 03/18/15 21:00:00Notes: Keep refrigerated. (Same as:Xalatan) Lantus 30 unit, Inactive Route: SUB-Q, 2014 Bedtime, Dosing Weight 120, kg, Start date: 02/17/15 21:00:00, Duration: 30 day, Stop date: 03/18/15 21:00:00 Levemir FlexPen 30 unit, 0.3 No Longer mL, Route: Active 2014 [facility] SUB-Q, Drug form: INJ, Bedtime, Start date: 02/17/15 21:00:00, Duration: 30 day, Stop date: 03/18/15 21:00:00Notes: Same as Levemir Do not hold insulin without contacting prescriber "single patient use only" Saline Flush 0.9% 10 ml, Route: No Longer IVP, Drug Active 2014 [facility] Form: INJ, Dosing Weight 120, kg, Q12H, Start date: 02/17/15 21:00:00, Duration: 30 day, Stop date: 03/19/15 9:00:00Notes: (Same as: BD Posiflush) Docusate 100 mg, 1 cap, No Longer Route: PO, Active 2014 [facility] Drug form: CAP, Q12H, Dosing Weight 120, kg, Start date: 02/17/15 21:00:00, Duration: 30 day, Stop date: 03/19/15 9:00:00Notes: (Same as: Colace) (Do Not Crush) normal saline 0.9% 1,000 mL, No Longer IV 1,000 mL Rate: 200 Active 2014 [facility] ml/hr, Infuse over: 5 hr, Route: IV, Dosing Weight 120 kg, Total Volume: 1,000, Start date: 02/17/15 20:44:00, Duration: 30 day, Stop date: 03/19/15 20:43:00 Symbicort 160/4.5 2 puff, Route: No Longer inhalation aerosol INHALATION, Active 2014 [facility] with adapter Drug Form: AERO/A, Dosing Weight 120, kg, RBID, Start date: 02/17/15 20:00:00, Stop date: 03/19/15 8:00:00Notes: (Same as: Symbicort) Sodium Chloride 1,000 mL, Inactive 0.154 MEQ/ML 1,000 ml/hr, 2014 Injectable Infuse Over: 1 Solution hr, Route: IV, ONCE, Priority: STAT, Dosing Weight 120 kg, Start date: 02/17/15 19:00:00, Duration: 1 doses or times, Stop date: 02/17/15 19:00:00 Albuterol 0.833 3 ml, Route: No Longer MG/ML / NEB, Drug Active 2014 [facility] Ipratropium Form: SOLN, [place] 0.167 Dosing Weight MG/ML Inhalant 120, kg, RQ4H, Solution Start date: 02/17/15 19:00:00, Duration: 30 day, Stop date: 03/19/15 15:00:00Notes: (Same as: Duoneb) Lactulose 20 gm, 30 ml, No Longer Route: PO, Active 2014 [facility] Drug Form: SYRP, Dosing Weight 120, kg, Q6H, Start date: 02/17/15 18:00:00, Duration: 30 day, Stop date: 03/19/15 12:00:00Notes: (Same as:Chronulac) Enoxaparin 40 mg, 0.4 mL, No Longer Route: SUB-Q, Active 2014 [facility] Drug form: INJ, [id number], Dosing Weight 120, kg, Start date: 02/17/15 17:00:00, Duration: 30 day, Stop date: 03/18/15 17:00:00Notes: (Same as: Lovenox) Brimonidine 1 drp, Route: No Longer tartrate 1.5 MG/ML BOTH EYES, Active 2014 [facility] Ophthalmic BID, Drug Solution form: SOLN, Start date: 02/17/15 17:00:00, Duration: 30 day, Stop date: 03/19/15 9:00:00Notes: (Same as: Alphagan-P) Betaxolol 2.5 2 drp, Route: No Longer MG/ML Ophthalmic BOTH EYES, Active 2014 [facility] Suspension BID, Drug [Betoptic S] form: SUSP, Start date: 02/17/15 17:00:00, Duration: 30 day, Stop date: 03/19/15 9:00:00Notes: (Same As: Betoptic S) Aspirin 81 mg, 1 tab, No Longer Route: PO, Active 2014 [facility] Drug form: CHEWTAB, Daily, Dosing Weight 120, kg, Start date: 02/17/15 17:00:00, Duration: 30 day, Stop date: 03/19/15 9:00:00Notes: Take with food. Vitamin C 1,000 mg, 2 No Longer tab, Route: Active 2014 [facility] PO, Drug form: TAB, Daily, Dosing Weight 120, kg, Start date: 02/17/15 17:00:00, Duration: 30 day, Stop date: 03/19/15 9:00:00Notes: (Same as: Vitamin C) Amlodipine 10 mg, 2 tab, No Longer Route: PO, Active 2014 [facility] Drug form: TAB, Daily, Dosing Weight 120, kg, Start date: 02/17/15 17:00:00, Duration: 30 day, Stop date: 03/19/15 9:00:00Notes: (Same as: Norvasc) Amiodarone 200 mg, 1 tab, No Longer Route: PO, Active 2014 [facility] Drug form: TAB, Daily, Dosing Weight 120, kg, Start date: 02/17/15 17:00:00, Duration: 30 day, Stop date: 03/19/15 9:00:00Notes: (Same as: Cordarone) Alprazolam 0.5 mg, 1 tab, No Longer Route: PO, Active 2014 [facility] Drug form: TAB, TID, Dosing Weight 120, kg, Start date: 02/17/15 17:00:00, Duration: 30 day, Stop date: 03/19/15 13:00:00Notes: With food or milk (Same as: Xanax) venlafaxine 75 mg, 2 tab, No Longer Route: PO, Active 2014 [facility] Drug form: TAB, Daily, Dosing Weight 120, kg, Start date: 02/17/15 17:00:00, Duration: 30 day, Stop date: 03/19/15 9:00:00Notes: (Same As: Effexor) Januvia 100 mg, 1 tab, No Longer Route: PO, Active 2014 [facility] Drug form: TAB, Daily, Dosing Weight 120, kg, Start date: 02/17/15 17:00:00, Duration: 30 day, Stop date: 03/19/15 9:00:00Notes: (Same as: Januvia) docusate sodium 200 mg, 2 cap, No Longer 100 mg oral Route: PO, Active 2014 [facility] capsule Drug form: CAP, BID, Dosing Weight 120, kg, Start date: 02/17/15 17:00:00, Duration: 30 day, Stop date: 03/19/15 9:00:00Notes: (Same as: Colace) (Do Not Crush) dexmedetomidine 50 mL, Rate: No Longer 200 microgram Titrate as Active 2014 [facility] directed, Dosing Weight 120, kg, Route: IV, Total Volume: 50 mL, Start Date: 02/17/15 16:38:00, Duration: 30 day, Stop date: 03/19/15 16:37:00, Replace Every: 24 hrNotes: (Same as: Precedex) potassium 15 mmol, 5 mL, No Longer phosphate + Sodium Route: IVPB, Active 2014 [facility] Chloride 0.9% IV PRN, Dosing 250 mL Weight 120, kg, PRN Abnormal Lab Result, Start date: 02/17/15 16:37:00, Duration: 30 day, Stop date: 03/19/15 16:36:00, FOR ICU USE ONLYSpecial Instructions: FOR ICU USE ONLYNotes: (Same as: K Phosphate.) 1 mMol phoshate has 1.47 mEq potassium Infuse over 4 hours sodium phosphate + 15 mmol, 5 mL, No Longer Sodium Chloride Route: IVPB, Active 2014 [facility] 0.9% IV 250 mL PRN, Dosing Weight 120, kg, PRN Abnormal Lab Result, Start date: 02/17/15 16:37:00, Duration: 30 day, Stop date: 03/19/15 16:36:00, FOR ICU USE ONLYSpecial Instructions: FOR ICU USE ONLY potassium chloride 20 mEq, 15 mL, No Longer Route: NJ, Active 2014 [facility] Drug form: LIQ, PRN, Dosing Weight 120, kg, PRN Abnormal Lab Result, Start date: 02/17/15 16:37:00, Duration: 30 day, Stop date: 03/19/15 16:36:00, FOR ICU USE ONLYSpecial Instructions: FOR ICU USE ONLYNotes: (Same as: Potassium Chloride) Calcium Carbonate 1,000 mg, 2 No Longer 500 MG Chewable tab, Route: Active 2014 [facility] Tablet PO, Drug form: CHEWTAB, PRN, Dosing Weight 120, kg, PRN Abnormal Lab Result, FOR ICU USE ONLY, Start date: 02/17/15 16:37:00, Duration: 30 day, Stop date: 03/19/15 16:36:00Notes: (Same As: Tums) Calcium Carbonate 500 ou=815 mg elemental calcium Dose= mg calcium carbonate ( mg elemental calcium) Magnesium Oxide 800 mg, 2 tab, No Longer Route: PO, Active 2014 [facility] Drug form: TAB, PRN, Dosing Weight 120, kg, PRN Abnormal Lab Result, FOR ICU USE ONLY, Start date: 02/17/15 16:37:00, Duration: 30 day, Stop date: 03/19/15 16:36:00Notes: (Same as: Mag-Ox 400) Magnesium oxide [id number] elemental magnesium Dose=____mg magnesium oxide (___mg elemental magnesium) Calcium Gluconate 1 gm, 50 mL, No Longer Route: IVPB, Active 2014 [facility] Drug form: INJ, PRN, Dosing Weight 120, kg, PRN Abnormal Lab Result, Start date: 02/17/15 16:37:00, Duration: 30 day, Stop date: 03/19/15 16:36:00, FOR ICU USE ONLYSpecial Instructions: FOR ICU USE ONLY Neutra-Phos 2 pkt, Route: No Longer PO, Drug Form: Active 2014 [facility] PDR/REC, Dosing Weight 120, kg, PRN, PRN Abnormal Lab Result, FOR ICU USE ONLY, Start date: 02/17/15 16:37:00, Duration: 30 day, Stop date: 03/19/15 16:36:00Notes: (Same as: Neutra-Phos) Each 1.25 gm pkt has 250mg phosphorous. Mix w/2.5oz water and stir. Magnesium Sulfate 2 gm, 50 mL, No Longer Route: IVPB, Active 2014 [facility] Drug form: INJ, PRN, Dosing Weight 120, kg, PRN Abnormal Lab Result, Start date: 02/17/15 16:37:00, Duration: 30 day, Stop date: 03/19/15 16:36:00, FOR ICU USE ONLYSpecial Instructions: FOR ICU USE ONLY Saline Flush 0.9% 10 ml, Route: No Longer IVP, Drug Active 2014 [facility] Form: INJ, Dosing Weight 120, kg, PRN, PRN Line Flush, Start date: 02/17/15 16:37:00, Duration: 30 day, Stop date: 03/19/15 16:36:00Notes: (Same as: BD Posiflush) Glucose 50 MG/ML / 1,000 mL, Inactive Sodium Chloride Rate: 125 2014 0.0769 MEQ/ML ml/hr, Infuse Injectable over: 8 hr, Solution Route: IV, Dosing Weight 120 kg, Total Volume: 1,000, Start date: 02/17/15 16:37:00, Duration: 30 day, Stop date: 03/19/15 16:36:00 Albuterol 0.833 3 ml, Route: No Longer MG/ML / NEB, Drug Active 2014 [facility] Ipratropium Form: SOLN, [place] 0.167 Dosing Weight MG/ML Inhalant 120, kg, PRN, Solution PRN Respiratory Protocol, Start date: 02/17/15 16:37:00, Duration: 30 day, Stop date: 03/19/15 16:36:00Notes: (Same as: Duoneb) Bisacodyl 10 mg, 1 supp, No Longer Route: [place], Active 2014 [facility] Drug form: SUPP, Daily, Dosing Weight 120, kg, PRN Other -See Comment, Start date: 02/17/15 16:37:00, Duration: 30 day, Stop date: 03/19/15 16:36:00Notes: (Same As: Dulcolax, Bisco-Lax) Acetaminophen 650 mg, 2 tab, No Longer Route: PO, Active 2014 [facility] Drug form: TAB, Q4H, Dosing Weight 120, kg, PRN For Temp > 100.4 F, Start date: 02/17/15 16:37:00, Duration: 30 day, Stop date: 03/19/15 16:36:00Notes: Do not exceed 4 gm/day. (Same as: Tylenol) NovoLOG FlexPen 10 unit, 0.1 No Longer mL, Route: Active 2014 [facility] SUB-Q, Drug form: SOLN, TID-Before Meals, Start date: 02/17/15 16:30:00, Duration: 30 day, Stop date: 03/19/15 11:30:00Notes: Roll in palms of hands gently; Do not shake vigorously. (Same as: NovoLOG) "single patient use only" Stable for 28 days at room temperature. Expires in days from Date Humalog 10 unit, Inactive Route: SUB-Q, 2014 [facility] TID-Before Meals, Dosing Weight 120, kg, Start date: 02/17/15 16:30:00, Duration: 30 day, Stop date: 03/19/15 11:30:00 metoprolol 25 mg, 1 tab, No Longer tartrate Route: PO, Active 2014 Drug form: TAB, Q8H, Dosing Weight 120, kg, Start date: 02/17/15 16:00:00, Duration: 30 day, Stop date: 03/19/15 8:00:00Notes: (Same as: Lopressor) Lorazepam 1 mg, 0.5 mL, No Longer Route: IVP, Active 2014 Drug form: INJ, Q15Min, Dosing Weight 120, kg, PRN Seizure, Start date: 02/17/15 15:55:00, Duration: 30 day, Stop date: 03/19/15 15:54:00Notes: (Same as: Ativan) Sodium Chloride 3% 200 mL, Rate: Inactive (Hypertonic) IV 50 ml/hr, 2014 200 mL Infuse over: 4 hr, Route: IV, Dosing Weight 120 kg, Total Volume: 200, Start date: 02/17/15 15:52:00, Duration: 4 hr, Stop date: 02/17/15 19:51:00Notes: "Administer by central venous catheter or a peripherally inserted central catheter (PICC) line. 3% Sodium Chloride may be infused via peripheral administration into large vein (antecubital) only in the case of emergency for short term use until a central line can be inserted" (Same as: Hypertonic Saline 3%) normal saline 0.9% 1,000 mL, Inactive IV 1,000 mL Rate: 110 2014 ml/hr, Infuse over: 9.1 hr, Route: IV, Dosing Weight 127.273 kg, Total Volume: 1,000, Start date: 02/17/15 13:41:00, Duration: 30 day, Stop date: 03/19/15 13:40:00 Sodium Chloride 1,000 mL, Inactive 0.154 MEQ/ML 1,000 ml/hr, 2014 Injectable Infuse Over: 1 Solution Hour, Route: IV, ONCE, Priority: STAT, Dosing Weight 127.273 kg, Start date: 02/17/15 12:06:00, Duration: 1 doses or times, Stop date: 02/17/15 12:06:00 Keppra 1,000 mg, 100 Inactive mL, Route: IV, 2014 [facility] Drug form: INJ, ONCE, Dosing Weight 127.273, kg, Start date: 02/17/15 11:07:00, Stop date: 02/17/15 11:07:00 Ativan 1 mg, Route: Inactive IVP, Drug 2014 [facility] form: INJ, ONCE, Dosing Weight 127.273, kg, Priority: STAT, Start date: 02/17/15 11:06:00, Stop date: 02/17/15 11:06:00 omega-3 1,000 mg=1 Active polyunsaturated cap, PO, 2014 [facility] fatty acids 1000 Daily, 0 mg oral capsule Refill(s) Vitamin C 500 mg 1,000 mg=2 Active oral tablet tab, PO, 2014 [facility] Daily, 0 Refill(s) latanoprost 0.05 1 drp, BOTH Active MG/ML Ophthalmic EYES, Bedtime, 2014 [facility] Solution 0 Refill(s) Betaxolol 2.5 2 drp, BOTH Active MG/ML Ophthalmic EYES, BID, 0 2014 [facility] Suspension Refill(s) [Betoptic S] Brimonidine 1 drp, BOTH Active tartrate 1.5 MG/ML EYES, BID, 0 2014 [facility] Ophthalmic Refill(s) Solution Symbicort 160/4.5 2 puff, Active inhalation aerosol INHALATION, 2014 [facility] with adapter BID, 0 Refill(s) tiotropium 0.018 18 microgram, Active MG/ACTUAT Inhalant INHALATION, 2014 [facility] Powder [Spiriva] Daily, 0 Refill(s) Ipratropium 500 microgram, Active NEB, QID, 0 2014 [facility] Refill(s) Humalog 10 unit, Active SUB-Q, 2014 [facility] TID-Before Meals, 0 Refill(s) Lantus 30 unit, Active SUB-Q, 2014 [facility] Bedtime, 0 Refill(s) busPIRone 5 mg 5 mg=1 tab, Active oral tablet PO, TID, 0 2014 [facility] Refill(s) venlafaxine 75 mg 75 mg=1 tab, Active oral tablet PO, Daily, 0 2014 [facility] Refill(s) Alprazolam 1 mg, PO, No Longer Bedtime, 0 Active 2014 [facility] Refill(s) docusate sodium 200 mg=2 cap, Active 100 mg oral PO, BID, 0 2014 [facility] capsule Refill(s) Saline Flush 0.9% 10 mL, Route: Inactive IVP, Drug 2014 [facility] Form: INJ, Dosing Weight 127.273, kg, PRN, PRN Line Flush, Start date: 02/17/15 9:43:00, Duration: 30 day, Stop date: 03/19/15 9:42:00Notes: (Same as: BD Posiflush) Naloxone 0.4 mg, 1 mL, Inactive Route: IVP, 2014 [facility] Drug form: INJ, ONCE, Dosing Weight 127.273, kg, Priority: STAT, Start date: 02/17/15 9:41:00, Stop date: 02/17/15 9:41:00Notes: Same as Narcan Albuterol 0.833 3 ml, Active MG/ML / INHALATION, 2013 [facility] Ipratropium QID, # 60 ea, [place] 0.167 0 Refill(s) MG/ML Inhalant Solution [DuoNeb] {21 As directed on Active (Methylprednisolon package 2013 [facility] e 4 MG Oral Tablet instructions, [Medrol]) } Pack PO, Daily, [Medrol Dosepak] Take with or without food, # 1 Pack, 0 Refill(s)Speci al Instructions: Take with or without food Doxycycline 100 MG 100 mg=1 cap, Active Oral Capsule PO, [id number], # 2013 [facility] 14 cap, 0 Refill(s) Prednisone 40 mg, 2 tab, Inactive Route: PO, 2013 Drug form: TAB, Daily, Dosing Weight 111.051, kg, Start date: 06/11/14 9:00:00, Duration: 30 day, Stop date: 07/10/14 9:00:00Notes: Take with food. Budesonide 0.25 0.5 mg, 2 mL, No Longer MG/ML Inhalant Route: NEB, Active 2013 [facility] Solution Drug form: [Pulmicort] SOLN, RBID, Dosing Weight 111.051, kg, Start date: 06/10/14 9:28:00, Duration: 30 day, Stop date: 07/10/14 8:00:00Notes: (Same As: Pulmicort) Azithromycin 500 mg, 250 No Longer mL, Route: Active 2013 [facility] IVPB, Drug form: PDR/INJ, [id number], Dosing Weight 111.051, kg, Start date: 06/09/14 23:00:00, Duration: 30 day, Stop date: 07/08/14 23:00:00Notes: Same as: Zithromax Fenofibrate 192 mg, 4 tab, No Longer Route: PO, Active 2013 [facility] Drug form: TAB, Bedtime, Dosing Weight 110.966, kg, Start date: 06/09/14 21:00:00, Duration: 30 day, Stop date: 07/08/14 21:00:00Notes: (Same as: Tricor) Effexor XR 150 mg, 2 cap, No Longer Route: PO, Active 2013 [facility] Drug form: ERCAP, Daily, Dosing Weight 110.966, kg, Start date: 06/09/14 9:00:00, Duration: 30 day, Stop date: 07/08/14 9:00:00Notes: Do not open, crush, or chew. (Same As: Effexor XR) One-A-Day Men 50 1 tab, Route: No Longer Plus PO, Drug Form: Active 2013 [facility] TAB, Dosing Weight 110.966, kg, Daily, Start date: 06/09/14 9:00:00, Duration: 30 day, Stop date: 07/08/14 9:00:00Notes: Give with food. (Same As: Stress 600 with Zinc) Influenza Virus 0.5 mL, Route: Inactive Vaccine, IM, Drug Form: 2013 Inactivated SUSP, Daily, [id number] Start date: (H3N2)-like virus 06/09/14 ([id number] 9:00:00, 7 [facility] [place] [id number]) Duration: 1 strain / Influenza doses or Virus Vaccine, times, Stop Inactivated date: 06/09/14 [id number] 9:00:00Notes: , IVR-148 (H1N1) (Same as: strain / Influenza Fluzone Virus Vaccine, Quadrivalent) Inactivated, [id number] Furosemide 20 mg, 1 tab, No Longer Route: PO, 2013 [facility] Drug form: TAB, Daily, Dosing Weight 110.966, kg, Start date: 06/09/14 9:00:00, Duration: 30 day, Stop date: 07/08/14 9:00:00Notes: (Same as: Lasix) May cause GI upset. Give with food or milk. Docusate 100 mg, 1 cap, No Longer Route: PO, 2013 [facility] Drug form: CAP, BID, Dosing Weight 110.966, kg, Start date: 06/09/14 9:00:00, Duration: 30 day, Stop date: 07/08/14 17:00:00Notes: (Same as: Colace) (Do Not Crush) Vitamin D3 200 IntlUnit, No Longer 0.5 tab, 2013 [facility] Route: PO, Drug form: TAB, Daily, Dosing Weight 110.966, kg, Start date: 06/09/14 9:00:00, Duration: 30 day, Stop date: 07/08/14 9:00:00Notes: Same as Vitamin D3 aspirin 81 mg, 1 tab, No Longer Route: PO, 2013 [facility] Drug form: CHEWTAB, Daily, Dosing Weight 110.966, kg, Start date: 06/09/14 9:00:00, Duration: 30 day, Stop date: 07/08/14 9:00:00Notes: Take with food. Amlodipine 10 mg, 2 tab, No Longer Route: PO, Active 2013 [facility] Drug form: TAB, Daily, Dosing Weight 110.966, kg, Start date: 06/09/14 9:00:00, Duration: 30 day, Stop date: 07/08/14 9:00:00Notes: (Same as: Norvasc) Amiodarone 200 mg, 1 tab, No Longer Route: PO, Active 2013 [facility] Drug form: TAB, Daily, Dosing Weight 110.966, kg, Start date: 06/09/14 9:00:00, Duration: 30 day, Stop date: 07/08/14 9:00:00Notes: (Same as: Cordarone) Alprazolam 0.5 mg, 1 tab, No Longer Route: PO, Active 2013 [facility] Drug form: TAB, TID, Dosing Weight 110.966, kg, Start date: 06/09/14 9:00:00, Duration: 30 day, Stop date: 07/08/14 17:00:00Notes: With food or milk (Same as: Xanax) Enoxaparin 40 mg, 0.4 mL, No Longer Route: SUB-Q, 2013 [facility] Drug form: INJ, [id number], Dosing Weight 110.966, kg, Start date: 06/09/14 8:00:00, Duration: 30 day, Stop date: 07/08/14 8:00:00Notes: (Same as: Lovenox) Thyroxine 25 microgram, No Longer 1 tab, Route: 2013 [facility] PO, Drug form: TAB, [id number], Dosing Weight 110.966, kg, Start date: 06/09/14 6:30:00, Duration: 30 day, Stop date: 07/08/14 6:30:00Notes: Take 1 hour before or 2 hours after meal; Enteral feeds may interefere with the absorption of this medication. (Same as:Levothroid) Albuterol 0.833 3 mL, Route: No Longer MG/ML / NEB, Drug Active 2013 [facility] Ipratropium Form: SOLN, [place] 0.167 Dosing Weight MG/ML Inhalant 110.966, kg, Solution RQ4H, Start date: 06/09/14 3:00:00, Duration: 30 day, Stop date: 07/08/14 23:00:00Notes: (Same as: Duoneb) methylPREDNISolone 40 mg, 1 mL, No Longer SODium SUCCinate Route: IVP, 2013 [facility] Drug form: INJ, Q8H, Dosing Weight 110.966, kg, Start date: 06/09/14 0:00:00, Duration: 30 day, Stop date: 07/08/14 16:00:00Notes: (Same as:Solu-MEDROL , A-Methapred) Doxycycline 100 mg, 1 tab, No Longer Route: PO, Active 2013 [facility] Drug form: TAB, [id number], Dosing Weight 110.966, kg, Start date: 06/09/14 0:00:00, Duration: 30 day, Stop date: 07/08/14 12:00:00Notes: NO MILK/ANTACIDS/ IRON Take 1 hour before or 2 hours after dairy products Levemir 5 unit, 0.05 No Longer mL, Route: Active 2013 [facility] SUB-Q, Drug form: INJ, Bedtime, Dosing Weight 110.966, kg, Start date: 06/08/14 23:45:00, Duration: 30 day, Stop date: 07/08/14 21:00:00Notes: Same as Levemir "single patient use only" Trazodone 50 mg, 1 tab, No Longer Route: PO, Active 2013 [facility] Drug form: TAB, Bedtime, Dosing Weight 110.966, kg, Start date: 06/08/14 23:38:00, Duration: 30 day, Stop date: 07/08/14 21:00:00Notes: (Same As: Desyrel) Risperidone 2 mg, 2 tab, No Longer Route: PO, Active 2013 [facility] Drug form: TAB, Bedtime, Dosing Weight 110.966, kg, Start date: 06/08/14 23:38:00, Duration: 30 day, Stop date: 07/08/14 21:00:00Notes: (Same as: Risperdal) metoprolol 25 mg, 1 tab, No Longer tartrate Route: PO, Active 2013 [facility] Drug form: TAB, Q12H, Dosing Weight 110.966, kg, Start date: 06/08/14 23:37:00, Duration: 30 day, Stop date: 07/08/14 21:00:00Notes: (Same as: Lopressor) Lisinopril 20 mg, 1 tab, No Longer Route: PO, Active 2013 [facility] Drug form: TAB, Q12H, Dosing Weight 110.966, kg, Start date: 06/08/14 23:37:00, Duration: 30 day, Stop date: 07/08/14 21:00:00Notes: (Same as: Prinivil, Zestril) Alprazolam 1 mg, 2 tab, No Longer Route: PO, Active 2013 [facility] Drug form: TAB, Bedtime, Dosing Weight 110.966, kg, Start date: 06/08/14 23:35:00, Duration: 30 day, Stop date: 07/08/14 21:00:00Notes: With food or milk (Same as: Xanax) Insulin, Aspart, 1 unit, 0.01 No Longer Human mL, Route: Active 2013 [facility] SUB-Q, Drug form: SOLN, Bedtime, Dosing Weight 110.966, kg, PRN Blood Glucose Results, Start date: 06/08/14 23:33:00, Duration: 30 day, Stop date: 07/08/14 23:32:00Notes: Roll in palms of hands gently; Do not shake vigorously. (Same as: NovoLOG) "single patient use only" Stable for 28 days at room temperature. Expires in days from Date Glucagon 1 mg, Route: No Longer IM, Drug form: Active 2013 [facility] PDR/INJ, PRN, Dosing Weight 110.966, kg, PRN Blood Glucose Results, Start date: 06/08/14 23:33:00, Duration: 30 day, Stop date: 07/08/14 22:32:00 Dextrose 50% 25 gm, 50 mL, No Longer Syringe Route: IVP, Active 2013 [facility] Drug Form: INJ, Dosing Weight 110.966, kg, PRN, PRN Blood Glucose Results, Start date: 06/08/14 23:33:00, Duration: 30 day, Stop date: 07/08/14 22:32:00 Baclofen 10 mg, 1 tab, No Longer Route: PO, Active 2013 [facility] Drug form: TAB, Q8H, Dosing Weight 110.966, kg, PRN as needed for muscle spasm, Start date: 06/08/14 23:31:00, Duration: 30 day, Stop date: 07/08/14 23:30:00Notes: (Same As: Lioresal) Albuterol 0.83 2.5 mg, 0.5 No Longer MG/ML Inhalant mL, Route: Active 2013 [facility] Solution NEB, Drug form: SOLN, RQ2H, Dosing Weight 110.966, kg, PRN Wheezing, Priority: Routine, Start date: 06/08/14 23:20:00, Duration: 30 day, Stop date: 07/08/14 23:19:00Notes: SEE RT DOCUMENTATION Non-Formulary Home Unknown eye Active Medication drops; filled 2013 [facility] Unknown eye drops; filled at [facility] in [place] aspirin 81 mg, PO, Active Daily 2013 [facility] Vitamin D3 200 IntlUnit, Active PO, Daily 2013 [facility] One-A-Day Men 50 1 tab, PO, Active Plus Daily 2013 [facility] Docusate 100 mg, PO, Active Daily 2013 [facility] Thyroxine 25 microgram, Active PO, Daily 2013 [facility] Januvia 50 mg, PO, Active Daily 2013 [facility] Fenofibrate 200 mg, PO, Active Daily 2013 [facility] Amlodipine 10 mg, PO, Active Daily 2013 [facility] Baclofen 10 mg, PO, Active Q8H, as needed 2013 [facility] for muscle spasm Risperidone 2 mg, PO, Active Bedtime 2013 [facility] Lisinopril 20 mg, PO, BID Active 2013 [facility] Trazodone 50 mg, PO, Active Bedtime 2013 [facility] Alprazolam 1 mg, PO, Active Bedtime 2013 [facility] Alprazolam 0.5 mg, PO, Active TID 2013 [facility] Furosemide 20 mg, PO, Active Daily 2013 [facility] Zithromax 500 mg, 250 Inactive mL, Route: 2013 [facility] IVPB, Drug form: PDR/INJ, ONCE, Dosing Weight 110.966, kg, Priority: STAT, Start date: 06/08/14 22:09:00, Stop date: 06/08/14 22:09:00Notes: Same as: Zithromax Albuterol 0.833 3 ml, Route: Inactive MG/ML / INHALATION, 2013 [facility] Ipratropium Drug Form: [place] 0.167 SOLN, Dosing MG/ML Inhalant Weight Solution [DuoNeb] 110.966, kg, Q30Min, Start date: 06/08/14 20:00:00, Duration: 3 doses or times, Stop date: 06/08/14 21:00:00Notes: (Same as: Duoneb) Saline Flush 0.9% 10 mL, Route: No Longer IVP, Drug Active 2013 [facility] Form: INJ, Dosing Weight 110.966, kg, PRN, PRN Line Flush, Start date: 06/08/14 19:26:00, Duration: 30 day, Stop date: 07/08/14 18:25:00Notes: (Same as: BD Posiflush) Allergies, Adverse Reactions, Alerts Substance Category Reaction Severity Reaction Status Date Comments Source type Reported codeine Assertion altered Drug Active mental allergy [facility] status caffeine Assertion Drug Active allergy [facility] Immunizations Immunization Date Site Status Last Comments Source Given Updated influenza virus Left completed [facility] vaccine, 7 deltoid inactivated influenza virus Right completed [facility] vaccine, 4 Deltoid [facility] inactivated [facility] Results Order Name Results Value Reference Date Interpretation Comments Source Range CHEM PANEL eGFR 83 06/09 Result Comment: The [facility] eGFR is calculated using the CKD-EPI formula. In most young, healthy individuals the eGFR will be >90 mL/min/1.73m2 . The eGFR declines with age. An eGFR of 60-89 may be normal in some populations, particularly the elderly, for whom the CKD-EPI formula has not been extensively validated. Use of the eGFR is not recommended in the following populations:< br/>
[place] viduals with unstable creatinine concentration s, including patients and those with serious co-morbid conditions.<b r/>
Patie nts with extremes in muscle mass or diet.

The data above are obtained from the National Kidney Disease Education Program (NKDEP) which additionally recommends that when the eGFR is used in patients with extremes of body mass index for purposes of drug dosing, the eGFR should be multiplied by the estimated BMI. CHEM PANEL Calcium Lvl 9.0 8.5 - 10.5 06/09 [facility] CHEM PANEL AGAP 8.0 10.0 - 06/09 [facility] 20.0 [facility] CHEM PANEL Creatinine 0.91 0.50 - 06/09 [facility] Lvl 1.40 /2016 [facility] CHEM PANEL Chloride Lvl 96 95 - 109 06/09 [facility] CHEM PANEL CO2 37 24 - 32 06/09 [facility] CHEM PANEL Sodium Lvl 137 135 - 145 06/09 [facility] CHEM PANEL Glucose Lvl 132 70 - 99 06/09 [facility] CHEM PANEL BUN 12 7 - 22 06/09 [facility] CHEM PANEL Potassium 4.0 3.5 - 5.1 06/09 MH Lvl /2016 [facility] HEMATOLOGY Basophils 0.9 0.0 - 1.0 06/09 [facility] HEMATOLOGY Segs-Bands # 5.6 1.5 - 8.1 06/09 [facility] HEMATOLOGY Monocytes # 1.2 0.0 - 0.8 06/09 [facility] HEMATOLOGY Lymphocytes 1.2 1.0 - 5.5 06/09 [facility] # /2016 [facility] HEMATOLOGY Basophils # 0.1 0.0 - 0.2 06/09 [facility] HEMATOLOGY Eosinophils 0.2 0.0 - 0.5 06/09 [facility] # /2016 [facility] HEMATOLOGY Eosinophils 2.0 0.0 - 4.0 06/09 [facility] HEMATOLOGY Monocytes 14.8 2.0 - 12.0 06/09 [facility] HEMATOLOGY Lymphocytes 14.9 20.0 - 06/09 [facility] 40.0 /2017 [facility] HEMATOLOGY Segs 67.4 45.0 - 06/09 [facility] 75.0 /2017 [facility] HEMATOLOGY RDW 14.4 11.5 - 06/09 MH 14.5 /2016 [facility] HEMATOLOGY Platelet 324 133 - 450 06/09 [facility] HEMATOLOGY MPV 8.9 7.4 - 10.4 06/09 [facility] HEMATOLOGY MCHC 33.7 32.0 - 10 MH 36.0 /2017 [facility] HEMATOLOGY RBC 3.48 4.70 - 10 MH 6.10 [facility] HEMATOLOGY Hgb 10.5 14.0 - 06/09 MH 18.0 [facility] HEMATOLOGY MCV 89.8 80.0 - 10 MH 94.0 /2016 [facility] HEMATOLOGY Hct 31.2 42.0 - 10 MH 54.0 /2017 [facility] HEMATOLOGY MCH 30.2 27.0 - 10 MH 31.0 [facility] HEMATOLOGY WBC 8.4 3.7 - 10.4 06/09 [facility] ELECTROLYT AGAP 6.7 10.0 - 10 MH ES 20.0 [facility] ELECTROLYT B/C Ratio 17 6 - 25 06/05 [facility] ELECTROLYT Globulin 3.5 2.7 - 4.2 06/05 [facility] ELECTROLYT A/G Ratio 0.5 0.7 - 1.6 06/05 [facility] ELECTROLYT eGFR 85 06/05 Comment: The [facility] eGFR is calculated using the CKD-EPI formula. In most young, healthy individuals the eGFR will be >90 mL/min/1.73m2 . The eGFR declines with age. An eGFR of 60-89 may be normal in some populations, particularly the elderly, for whom the CKD-EPI formula has not been extensively validated. Use of the eGFR is not recommended in the following populations:< br/>
[place] viduals with unstable creatinine concentration s, including patients and those with serious co-morbid conditions.<b r/>
Patie nts with extremes in muscle mass or diet.

The data above are obtained from the National Kidney Disease Education Program (NKDEP) which additionally recommends that when the eGFR is used in patients with extremes of body mass index for purposes of drug dosing, the eGFR should be multiplied by the estimated BMI. ELECTROLYT Total 5.2 6.4 - 8.4 06/05 MH ES [facility] ELECTROLYT Albumin Lvl 1.7 3.5 - 5.0 06/05 [facility] ELECTROLYT ALT 18 0 - 65 06/05 [facility] ELECTROLYT CO2 36 24 - 32 06/05 [facility] ELECTROLYT Calcium Lvl 9.1 8.5 - 10.5 10 ES [facility] ELECTROLYT AST 16 0 - 37 10 [facility] ELECTROLYT Alk Phos 38 39 - 136 06/05 [facility] ELECTROLYT Bili Total 0.3 0.2 - 1.3 06/05 [facility] ELECTROLYT Creatinine 0.88 0.50 - 10 ES Lvl 1.40 /2016 [facility] ELECTROLYT Sodium Lvl 136 135 - 145 10 ES [facility] ELECTROLYT Potassium 3.7 3.5 - 5.1 10 ES Lvl /2016 [facility] ELECTROLYT Chloride Lvl 97 95 - 109 10 [facility] ELECTROLYT BUN 15 7 - 22 06/05 [facility] ELECTROLYT Glucose Lvl 135 70 - 99 06/05 [facility] HEMATOLOGY Platelet 327 133 - 450 06/05 [facility] HEMATOLOGY MPV 8.6 7.4 - 10.4 06/05 [facility] HEMATOLOGY Hct 30.7 42.0 - 10 54.0 /2016 [facility] HEMATOLOGY MCV 88.8 80.0 - 10 94.0 /2016 [facility] HEMATOLOGY RBC 3.46 4.70 - 10 6.10 [facility] HEMATOLOGY Hgb 10.4 14.0 - 10 18.0 /2016 [facility] HEMATOLOGY RDW 14.2 11.5 - 10 14. /2016 [facility] HEMATOLOGY MCHC 33.8 32.0 - 10 36.0 /2016 [facility] HEMATOLOGY MCH 30.0 27.0 - 10 31.0 /2016 [facility] HEMATOLOGY WBC 11.4 3.7 - 10.4 06/05 [facility] HEMATOLOGY Monocytes # 1.5 0.0 - 0.8 06/05 [facility] HEMATOLOGY Eosinophils 0.2 0.0 - 0.5 06/05 # /2016 [facility] HEMATOLOGY Lymphocytes 1.3 1.0 - 5.5 06/05 # [facility] HEMATOLOGY Segs-Bands # 8.3 1.5 - 8.1 06/05 [facility] HEMATOLOGY Eosinophils 2.0 0.0 - 4.0 06/05 [facility] HEMATOLOGY Monocytes 13.2 2.0 - 12.0 06/05 [facility] HEMATOLOGY Lymphocytes 11.1 20.0 - 10 MH 40.0 /2017 [facility] HEMATOLOGY Segs 73.2 45.0 - 10 MH 75.0 /2017 [facility] HEMATOLOGY Basophils # 0.1 0.0 - 0.2 06/05 [facility] HEMATOLOGY Basophils 0.5 0.0 - 1.0 06/05 [facility] CHEM PANEL B/C Ratio 15 6 - 25 06/04 [facility] CHEM PANEL Globulin 3.7 2.7 - 4.2 06/04 [facility] CHEM PANEL A/G Ratio 0.5 0.7 - 1.6 06/04 [facility] CHEM PANEL AGAP 10.8 10.0 - 06/04 MH 20.0 /2017 [facility] CHEM PANEL eGFR 83 06/04 Comment: The [facility] eGFR is calculated using the CKD-EPI formula. In most young, healthy individuals the eGFR will be >90 mL/min/1.73m2 . The eGFR declines with age. An eGFR of 60-89 may be normal in some populations, particularly the elderly, for whom the CKD-EPI formula has not been extensively validated. Use of the eGFR is not recommended in the following populations:< br/>
[place] viduals with unstable creatinine concentration s, including patients and those with serious co-morbid conditions.<b r/>
Patie nts with extremes in muscle mass or diet.

The data above are obtained from the National Kidney Disease Education Program (NKDEP) which additionally recommends that when the eGFR is used in patients with extremes of body mass index for purposes of drug dosing, the eGFR should be multiplied by the estimated BMI. CHEM PANEL Alk Phos 43 39 - 136 06/04 [facility] CHEM PANEL Bili Total 0.3 0.2 - 1.3 06/04 [facility] CHEM PANEL Total 5.4 6.4 - 8.4 06/04 [facility] CHEM PANEL Calcium Lvl 8.9 8.5 - 10.5 06/04 [facility] CHEM PANEL Albumin Lvl 1.7 3.5 - 5.0 06/04 [facility] CHEM PANEL CO2 35 24 - 32 06/04 [facility] CHEM PANEL ALT 21 0 - 65 06/04 [facility] CHEM PANEL AST 19 0 - 37 06/04 [facility] CHEM PANEL Creatinine 0.91 0.50 - 10 Lvl 1.40 [facility] CHEM PANEL Sodium Lvl 135 135 - 145 06/04 [facility] CHEM PANEL BUN 14 7 - 22 06/04 [facility] CHEM PANEL Chloride Lvl 93 95 - 109 06/04 [facility] CHEM PANEL Potassium 3.8 3.5 - 5.1 06/04 Lvl /2016 [facility] CHEM PANEL Glucose Lvl 145 70 - 99 06/04 [facility] HEMATOLOGY Spherocyte Moderate None Seen 06/04 *ABN* [facility] (06/04/17 10:09 AM) HEMATOLOGY RBC Morph Normal 06/04 (06/04/17 10:09 AM) [facility] HEMATOLOGY Large Plt Moderate None Seen 06/04 *ABN* [facility] (06/04/17 10:09 AM) HEMATOLOGY Toxic Gran Moderate None Seen 06/04 *ABN* [facility] (06/04/17 10:09 AM) HEMATOLOGY Lymphocytes 8.0 20.0 - 06/04 40.0 [facility] HEMATOLOGY Bands 4.0 0.0 - 11.0 06/04 [facility] HEMATOLOGY Atypical 0.0 <=0.0 % 06/04 Lymphs [facility] HEMATOLOGY Eosinophils 1.0 0.0 - 4.0 06/04 [facility] HEMATOLOGY Monocytes 7.0 2.0 - 12.0 06/04 [facility] HEMATOLOGY Segs 80.0 45.0 - 06/04 75.0 [facility] HEMATOLOGY Eosinophils 0.1 0.0 - 0.5 06/04 MH # /2016 [facility] HEMATOLOGY Segs-Bands # 11.8 1.5 - 8.1 06/04 [facility] HEMATOLOGY Monocytes # 1.0 0.0 - 0.8 06/04 [facility] HEMATOLOGY Lymphocytes 1.1 1.0 - 5.5 06/04 MH # /2016 [facility] HEMATOLOGY MCH 29.7 27.0 - 06/04 MH 31.0 [facility] HEMAT[facility] Hct 32.8 42.0 - 06/04 MH 54.0 [facility] HEMATOLOGY Hgb 11.0 14.0 - 06/04 MH 18.0 [facility] HEMATOLOGY RBC 3.68 4.70 - 06/04 MH 6.10 [facility] HEMATOLOGY MCV 89.0 80.0 - 06/04 94.0 /2016 [facility] HEMATOLOGY WBC 14.0 3.7 - 10.4 06/04 [facility] HEMATOLOGY RDW 14.4 11.5 - 10 MH 14.5 /2016 [facility] HEMATOLOGY Platelet 336 133 - 450 06/04 [facility] HEMATOLOGY MPV 8.5 7.4 - 10.4 06/04 [facility] HEMATOLOGY MCHC 33.4 32.0 - 06/04 MH 36.0 /2016 [facility] HEMATOLOGY Basophils 0.4 0.0 - 1.0 06/03 [facility] HEMATOLOGY RBC Morph Normal 06/03 (06/03/17 3:40 PM) [facility] HEMATOLOGY Plt Morph Normal 06/03 (06/03/17 3:40 PM) [facility] HEMATOLOGY Basophils # 0.1 0.0 - 0.2 06/03 [facility] HEMATOLOGY Metamyelocyt 2.0 0.0 - 1.0 05/31 [facility] HEMATOLOGY Atypical 0.0 <=0.0 % 05/31 Lymphs [facility] HEMATOLOGY Bands 10.0 0.0 - 11.0 05/31 [facility] HEMATOLOGY Plt Morph Normal 05/31 (05/31/17 4:41 AM) [facility] HEMATOLOGY RBC Morph Normal 05/31 (05/31/17 4:41 AM) [facility] HEMATOLOGY Toxic Gran Moderate None Seen 05/31 *ABN* /2016 [facility] (05/31/17 4:41 AM) HEMATOLOGY Tot Cell Ct 100 05/31 [facility] CHEM PANEL B/C Ratio 38 6 - 25 05/29 [facility] CHEM PANEL A/G Ratio 0.4 0.7 - 1.6 05/29 [facility] CHEM PANEL Globulin 3.5 2.7 - 4.2 05/29 [facility] CHEM PANEL ALT 16 0 - 65 05/29 [facility] CHEM PANEL Total 5.0 6.4 - 8.4 05/29 [facility] CHEM PANEL Albumin Lvl 1.5 3.5 - 5.0 05/29 [facility] CHEM PANEL AST 18 0 - 37 05/29 [facility] CHEM PANEL Bili Total 0.4 0.2 - 1.3 05/29 [facility] CHEM PANEL Alk Phos 39 39 - 136 05/29 [facility] HEMATOLOGY Plt Morph Normal 05/28 (05/28/17 2:37 AM) [facility] URINE AND UA Mucus Few /LPF None Seen 05/25 STOOL /LPF /2016 [facility] URINE AND UA Bacteria Occasional None Seen 05/25 STOOL /HPF /HPF /2016 [facility] URINE AND UA Amorph Moderate None Seen 05/25 STOOL Sydni /HPF /HPF /2016 [facility] URINE AND UA Sq Epi Occasional Few /LPF 05/25 STOOL /LPF /2016 [facility] URINE AND UA RBC 6-10 /HPF 0 - 2 05/25 [facility] URINE [facility] WBC 0-2 /HPF 0 - 5 05/25 [facility] URINE AND UA Leuk Est Negative Negative 05/25 STO[facility] (05/24/17 9:42 PM) [facility] URINE AND Micro? Performed 05/25 STO[facility] (05/24/17 9:42 PM) [facility] URINE AND UA 1.0 0.1 - 1.0 05/25 STOOL Urobilinogen /2016 [facility] URINE AND UA Nitrite Negative Negative 05/25 STO[facility] (05/24/17 9:42 PM) [facility] URINE AND UA Protein 30 mg/dL Negative 05/25 STOOL mg/dL /2016 [facility] URINE AND UA Bili Small Negative 05/25 STOOL *ABN* /2016 [facility] (05/24/17 9:42 PM) URINE AND UA Blood Moderate Negative 05/25 STOOL *ABN* /2016 [facility] (05/24/17 9:42 PM) URINE AND UA Glucose Negative Negative 05/25 STO[facility] (05/24/17 9:42 PM) [facility] URINE AND UA Ketones Trace Negative 05/25 STOOL *ABN* [facility] (05/24/17 9:42 PM) URINE AND UA Spec Grav >=1.030 <=1.030 05/25 STOOL *ABN* /2016 [facility] (05/24/17 9:42 PM) URINE AND UA pH 5.0 5.0 - 8.0 05/25 STOOL /2016 [facility] URINE AND UA Color Yellow Yellow 05/25 STOOL *NA* /2016 [facility] (05/24/17 9:42 PM) URINE AND UA Turbidity Cloudy Clear 05/25 STOOL *ABN* [facility] (05/24/17 9:42 PM) CHEM PANEL Procalcitoni 14.55 0.00 - 05/24 Result n Lvl 0.10 Comment: [facility] Critical Result(s) called to Mary Carmen Song RN at 05/24/2017 12:22 by STAN. Read back OK. CHEM PANEL Lactic Acid 1.2 0.5 - 2.2 05/24 Lvl /2016 [facility] URINE AND UA Ketones Negative Negative 05/23 STOOL mg/dL mg/dL [facility] URINE AND UA Bili Negative Negative 05/23 STOOL *NA* /2016 [facility] (05/23/17 7:31 AM) URINE AND UA Blood Negative Negative 05/23 STOOL (05/23/17 7:31 AM) [facility] URINE AND UA Nitrite Negative Negative 05/23 STOOL (05/23/17 7:31 AM) /2016 [facility] URINE AND UA 2.0 0.1 - 1.0 05/23 STOOL Urobilinogen /2016 [facility] URINE AND UA Leuk Est Negative Negative 05/23 STOOL (05/23/17 7:31 AM) [facility] URINE AND UA WBC 1 0 - 5 05/23 STOOL /2016 [facility] URINE AND UA Sq Epi Occasional Few /LPF 05/23 STOOL /LPF /2016 [facility] URINE AND UA Mucus Few /LPF None Seen 05/23 STOOL /LPF /2016 [facility] URINE AND UA RBC 2 0 - 2 05/23 STOOL /2016 [facility] URINE AND UA Glucose 150 mg/dL Negative 05/23 STOOL mg/dL /2016 [facility] URINE AND UA Protein 100 mg/dL Negative 05/23 STOOL mg/dL /2016 [facility] URINE AND UA Spec Grav 1.020 <=1.030 05/23 STOOL /2016 [facility] URINE AND UA pH 5.0 5.0 - 8.0 05/23 STOOL /2016 [facility] URINE AND UA Color Yellow Yellow 05/23 STOOL *NA* /2016 [facility] (05/23/17 7:31 AM) URINE AND UA Turbidity Clear Clear 05/23 STOOL (05/23/17 7:31 AM) /2016 [facility] CARDIAC BNP 76 <=100 05/23 EN[facility]YM[facility] pg/mL /2016 [facility] CHEM PANEL Magnesium 1.6 1.8 - 2.4 05/23 Lvl /2016 [facility] CHEM PANEL Lipase Lvl 151 73 - 393 05/23 [facility] SPECIAL Hgb A1C 6.5 <=5.6 % 05/23 CHEMISTRY /2016 [facility] URINE AND UA Sq Epi Occasional Few /LPF 07/28 STOOL /LPF /2015 [facility] URINE AND UA WBC None Seen None Seen 07/28 STOOL (07/28/16 5:04 AM) [facility] URINE AND UA RBC None Seen 0 - 2 07/28 [facility] (07/28/16 5:04 AM) [facility] URINE AND UA Bacteria Occasional None Seen 07/28 STOOL /HPF /HPF /2015 [facility] URINE AND UA Nitrite Negative Negative 07/28 STO[facility] (07/28/16 5:04 AM) [facility] URINE AND UA Leuk Est Negative Negative 07/28 STOOL (07/28/16 5:04 AM) [facility] URINE AND UA Turbidity Clear Clear 07/28 STOOL (07/28/16 5:04 AM) [facility] URINE AND UA Color STRAW 07/28 STOOL /2015 [facility] URINE AND UA Ketones Negative Negative 07/28 STOOL *NA* /2015 [facility] (07/28/16 5:04 AM) URINE AND UA Bili Negative Negative 07/28 STOOL *NA* /2015 [facility] (07/28/16 5:04 AM) URINE AND UA Spec Grav 1.010 <=1.030 07/28 STOOL /2015 [facility] URINE AND UA 0.2 0.1 - 1.0 07/28 STOOL Urobilinogen /2015 [facility] URINE AND UA Blood Negative Negative 07/28 STOOL (07/28/16 5:04 AM) [facility] URINE AND UA pH 7.0 5.0 - 8.0 07/28 STOOL /2015 [facility] URINE AND UA Glucose 100 mg/dL Negative 07/28 STOOL mg/dL /2015 [facility] URINE AND UA Protein Negative Negative 07/28 STOOL (07/28/16 5:04 AM) [facility] LIPIDS CHD Risk 2.35 4.00 - 07/28 7.30 /2015 [facility] LIPIDS VLDL 27 07/28 [facility] LIPIDS LDL 46 <=99 mg/dL 07/28 (Calculated) [facility] LIPIDS Chol 127 <=199 07/28 mg/dL [facility] LIPIDS HDL 54 >=61 mg/dL 07/28 [facility] LIPIDS Trig 135 <=149 07/28 mg/dL /2015 [facility] SPECIAL Hgb A1C 6.1 <=5.6 % 07/28 CHEMISTRY /2015 [facility] CARDIAC CK MB Index <2.0 0.0 - 2.5 07/28 [facility] CARDIAC Troponin-I <0.02 0.00 - 07/28 ENZYMES 0.40 /2015 [facility] CARDIAC CK MB <1.0 0.5 - 3.6 07/28 [facility] CARDIAC Total CK 49 12 - 191 07/28 [facility] CARDIAC BNP 32 <=100 07/28 [facility] pg/mL [facility] CHEM PANEL Globulin 3.3 2.7 - 4.2 07/28 [facility] CHEM PANEL A/G Ratio 1.0 0.7 - 1.6 07/28 [facility] CHEM PANEL eGFR 53 07/28 [facility] Comment: The [facility] eGFR is calculated using the CKD-EPI formula. In most young, healthy individuals the eGFR will be >90 mL/min/1.73m2 . The eGFR declines with age. An eGFR of 60-89 may be normal in some populations, particularly the elderly, for whom the CKD-EPI formula has not been extensively validated. Use of the eGFR is not recommended in the following populations:< br/>
[place] viduals with unstable creatinine concentration s, including patients and those with serious co-morbid conditions.<b r/>
Patie nts with extremes in muscle mass or diet.

The data above are obtained from the National Kidney Disease Education Program (NKDEP) which additionally recommends that when the eGFR is used in patients with extremes of body mass index for purposes of drug dosing, the eGFR should be multiplied by the estimated BMI. CHEM PANEL AST 11 0 - 37 07/28 [facility] CHEM PANEL Alk Phos 38 39 - 136 07/28 [facility] CHEM PANEL Bili Total 0.2 0.2 - 1.3 07/28 [facility] CHEM PANEL AGAP 10.0 10.0 - 07/28 20.0 /2015 [facility] CHEM PANEL B/C Ratio 21 6 - 25 07/28 [facility] CHEM PANEL ALT 16 0 - 65 07/28 [facility] CHEM PANEL Albumin Lvl 3.3 3.5 - 5.0 07/28 [facility] CHEM PANEL Calcium Lvl 8.3 8.5 - 10.5 07/28 [facility] CHEM PANEL CO2 34 24 - 32 07/28 /2015 [facility] CHEM PANEL Total 6.6 6.4 - 8.4 07/28 MH Protein /2015 [facility] CHEM PANEL Glucose Lvl 161 70 - 99 07/28 /2015 [facility] CHEM PANEL Potassium 4.0 3.5 - 5.1 07/28 MH Lvl /2015 [facility] CHEM PANEL Chloride Lvl 99 95 - 109 07/28 /2015 [facility] CHEM PANEL Creatinine 1.34 0.50 - 07/28 MH Lvl 1.40 /2015 [facility] CHEM PANEL BUN 28 7 - 22 07/28 /2015 [facility] CHEM PANEL Sodium Lvl 139 135 - 145 07/28 /2015 [facility] HEMATOLOGY Basophils # 0.1 0.0 - 0.2 07/28 /2015 [facility] HEMATOLOGY Segs-Bands # 5.2 1.5 - 8.1 07/28 /2015 [facility] HEMATOLOGY Lymphocytes 22.2 20.0 - 07/28 MH 40.0 /2015 [facility] HEMATOLOGY Monocytes 13.7 2.0 - 12.0 07/28 /2015 [facility] HEMATOLOGY Eosinophils 0.2 0.0 - 0.5 07/28 MH # /2016 [facility] HEMATOLOGY Lymphocytes 1.9 1.0 - 5.5 07/28 MH # /2015 [facility] HEMATOLOGY Monocytes # 1.2 0.0 - 0.8 07/28 /2015 [facility] HEMATOLOGY Segs 60.8 45.0 - 07/28 MH 75.0 /2015 [facility] HEMATOLOGY Eosinophils 2.7 0.0 - 4.0 07/28 /2015 [facility] HEMATOLOGY Basophils 0.6 0.0 - 1.0 07/28 /2015 [facility] HEMATOLOGY PTT 26.5 22.9 - 07/28 MH 35.8 /2015 [facility] HEMATOLOGY PT 13.6 12.0 - 07/28 MH 14.7 /2015 [facility] HEMATOLOGY INR 1.02 0.85 - 07/28 MH 1.17 /2015 [facility] HEMATOLOGY Platelet 181 133 - 450 07/28 /2015 [facility] HEMATOLOGY MPV 10.9 7.4 - 10.4 07/28 /2015 [facility] HEMATOLOGY MCH 29.9 27.0 - 07/28 MH 31.0 /2015 [facility] HEMATOLOGY MCHC 33.2 32.0 - 07/28 MH 36.0 /2015 [facility] HEMATOLOGY MCV 90.2 80.0 - 07/28 MH 94.0 /2015 [facility] HEMATOLOGY RDW 13.3 11.5 - 07/28 MH 14.5 /2015 [facility] HEMATOLOGY Hgb 13.4 14.0 - 07/28 18.0 /2015 [facility] HEMATOLOGY Hct 40.3 42.0 - 07/28 54.0 /2015 [facility] HEMATOLOGY WBC 8.5 3.7 - 10.4 07/28 /2015 [facility] HEMATOLOGY RBC 4.47 4.70 - 07/28 6.10 /2015 [facility] URINE AND UA Bacteria None Seen None Seen 07/28 STOOL (07/27/16 10:12 PM) /2015 [facility] URINE AND UA WBC None Seen None Seen 07/28 STOOL (07/27/16 10:12 PM) /2015 [facility] URINE AND UA RBC None Seen 0 - 2 07/28 STOOL (07/27/16 10:12 PM) [facility] URINE AND UA Sq Epi Rare /LPF Few /LPF 07/28 STOOL /2015 [facility] URINE AND UA Nitrite Negative Negative 07/28 STOOL (07/27/16 10:12 PM) [facility] URINE AND UA Leuk Est Negative Negative 07/28 STOOL (07/27/16 10:12 PM) [facility] URINE AND UA Ketones Negative Negative 07/28 STOOL mg/dL mg/dL /2015 [facility] URINE AND UA Bili Negative Negative 07/28 STOOL *NA* /2015 [facility] (07/27/16 10:12 PM) URINE AND UA Blood Negative Negative 07/28 STOOL (07/27/16 10:12 PM) [facility] URINE AND UA 0.2 0.1 - 1.0 07/28 STOOL Urobilinogen /2015 [facility] URINE AND UA Spec Grav 1.010 <=1.030 07/28 STOOL /2015 [facility] URINE AND UA Color Yellow Yellow 07/28 STOOL *NA* /2015 [facility] (07/27/16 10:12 PM) URINE AND UA Turbidity Clear Clear 07/28 STOOL (07/27/16 10:12 PM) [facility] URINE AND UA pH 7.5 5.0 - 8.0 07/28 STOOL /2015 [facility] URINE AND UA Protein Negative Negative 07/28 STOOL mg/dL mg/dL /2015 [facility] URINE AND UA Glucose Negative Negative 07/28 STOOL mg/dL mg/dL [facility] URINE AND UA Leuk Est Negative Negative 05/30 STOOL (05/30/16 11:03 AM) /2015 [facility] URINE AND UA Turbidity Clear Clear 05/30 STOOL (05/30/16 11:03 AM) /2015 [facility] URINE AND UA Nitrite Negative Negative 05/30 STOOL (05/30/16 11:03 AM) [facility] URINE AND UA 0.2 0.1 - 1.0 05/30 STOOL Urobilinogen /2015 [facility] URINE AND UA Spec Grav 1.015 <=1.030 05/30 STOOL /2015 [facility] URINE AND UA pH 6.0 5.0 - 8.0 05/30 STOOL /2015 [facility] URINE AND UA Protein Negative Negative 05/30 STOOL (05/30/16 11:03 AM) [facility] URINE AND UA Color Yellow Yellow 05/30 STOOL *NA* /2015 [facility] (05/30/16 11:03 AM) URINE AND UA Ketones Negative Negative 05/30 STOOL *NA* /2015 [facility] (05/30/16 11:03 AM) URINE AND UA Glucose Negative Negative 05/30 STOOL (05/30/16 11:03 AM) [facility] URINE AND UA Blood Moderate Negative 05/30 STOOL *ABN* /2015 [facility] (05/30/16 11:03 AM) URINE AND UA Bili Negative Negative 05/30 STOOL *NA* /2015 [facility] (05/30/16 11:03 AM) URINE AND UA Sq Epi Rare /LPF Few /LPF 05/30 STOOL /2015 [facility] URINE AND Micro? Performed 05/30 STOOL (05/30/16 11:03 AM) [facility] URINE AND UA WBC None Seen None Seen 05/30 STOOL (05/30/16 11:03 AM) [facility] URINE AND UA RBC None Seen 0 - 2 05/30 STOOL (05/30/16 11:03 AM) [facility] URINE AND UA Bacteria None Seen None Seen 05/30 STOOL (05/30/16 11:03 AM) [facility] CARDIAC Troponin-I <0.02 0.00 - 05/30 ENZYMES 0.40 [facility] CARDIAC BNP 32 <=100 05/30 [facility] pg/mL /2015 [facility] CARDIAC Total CK 64 12 - 191 05/30 ENZYMES /2015 [facility] CHEM PANEL Lipase Lvl 201 73 - 393 05/30 [facility] ELECTROLYT AGAP 9.2 10.0 - 05/30 ES 20.0 [facility] ELECTROLYT B/C Ratio 20 6 - 25 05/30 [facility] ELECTROLYT Globulin 3.8 2.7 - 4.2 05/30 ES [facility] ELECTROLYT A/G Ratio 0.9 0.7 - 1.6 05/30 [facility] ELECTROLYT eGFR 49 05/30 [facility] Comment: The [facility] eGFR is calculated using the CKD-EPI formula. In most young, healthy individuals the eGFR will be >90 mL/min/1.73m2 . The eGFR declines with age. An eGFR of 60-89 may be normal in some populations, particularly the elderly, for whom the CKD-EPI formula has not been extensively validated. Use of the eGFR is not recommended in the following populations:< br/>
[place] viduals with unstable creatinine concentration s, including patients and those with serious co-morbid conditions.<b r/>
Patie nts with extremes in muscle mass or diet.

The data above are obtained from the National Kidney Disease Education Program (NKDEP) which additionally recommends that when the eGFR is used in patients with extremes of body mass index for purposes of drug dosing, the eGFR should be multiplied by the estimated BMI. ELECTROLYT Albumin Lvl 3.6 3.5 - 5.0 05/30 [facility] ELECTROLYT ALT 20 0 - 65 05/30 [facility] ELECTROLYT Alk Phos 37 39 - 136 05/30 [facility] ELECTROLYT AST 14 0 - 37 05/30 [facility] ELECTROLYT Bili Total 0.3 0.2 - 1.3 05/30 [facility] ELECTROLYT Sodium Lvl 143 135 - 145 05/30 [facility] ELECTROLYT Creatinine 1.42 0.50 - 05/30 ES Lvl 1.40 /2015 [facility] ELECTROLYT Potassium 4.2 3.5 - 5.1 05/30 ES Lvl [facility] ELECTROLY[facility] Chloride Lvl 103 95 - 109 05/30 [facility] ELECTROLYT Calcium Lvl 8.9 8.5 - 10.5 05/30 [facility] ELECTROLYT CO2 35 24 - 32 05/30 [facility] ELECTROLYT Total 7.4 6.4 - 8.4 05/30 ES Protein [facility] ELECTROLYT BUN 28 7 - 22 05/30 MH ES /2015 [facility] ELECTROLYT Glucose Lvl 141 70 - 99 05/30 MH ES /2015 [facility] HEMATOLOGY Basophils # 0.1 0.0 - 0.2 05/30 /2015 [facility] HEMATOLOGY Lymphocytes 1.3 1.0 - 5.5 05/30 MH # /2015 [facility] HEMATOLOGY Monocytes # 1.1 0.0 - 0.8 05/30 /2015 [facility] HEMATOLOGY Eosinophils 0.1 0.0 - 0.5 05/30 MH # /2015 [facility] HEMATOLOGY Segs-Bands # 4.4 1.5 - 8.1 05/30 /2015 [facility] HEMATOLOGY Basophils 0.9 0.0 - 1.0 05/30 /2015 [facility] HEMATOLOGY Monocytes 15.3 2.0 - 12.0 05/30 [facility] HEMATOLOGY Eosinophils 2.1 0.0 - 4.0 05/30 /2015 [facility] HEMATOLOGY Lymphocytes 18.2 20.0 - 05/30 MH 40.0 [facility] HEMATOLOGY Segs 63.5 45.0 - 05/30 MH 75.0 /2015 [facility] HEMATOLOGY Hct 39.9 42.0 - 05/30 MH 54.0 /2015 [facility] HEMATOLOGY MCH 30.6 27.0 - 05/30 MH 31.0 [facility] HEMATOLOGY MCV 91.2 80.0 - 05/30 MH 94.0 [facility] HEMATOLOGY Hgb 13.4 14.0 - 05/30 MH 18.0 [facility] HEMATOLOGY RBC 4.37 4.70 - 05/30 MH 6.10 /2015 [facility] HEMATOLOGY WBC 6.9 3.7 - 10.4 05/30 [facility] HEMATOLOGY Platelet 174 133 - 450 05/30 [facility] HEMATOLOGY MPV 10.3 7.4 - 10.4 05/30 /2015 [facility] HEMATOLOGY MCHC 33.6 32.0 - 05/30 MH 36.0 [facility] HEMATOLOGY RDW 13.8 11.5 - 05/30 MH 14.5 [facility] CHEM PANEL Magnesium 1.6 1.8 - 2.4 02/19 Lvl /2014 [facility] ELECTROLYT AGAP 8.5 10.0 - 02/19 ES 20.0 [facility] ELECTROLYT eGFR 86 02/19 <sup>1</sup>R MH esult [facility] Comment: The eGFR is calculated using the CKD-EPI formula. In most young, healthy individuals the eGFR will be >90 mL/min/1.73m2 . The eGFR declines with age. An eGFR of 60-89 may be normal in some populations, particularly the elderly, for whom the CKD-EPI formula has not been extensively validated. Use of the eGFR is not recommended in the following populations:& lt;br/>
I ndividuals with unstable creatinine concentration s, including patients and those with serious co-morbid conditions.<b r/>
Patie nts with extremes in muscle mass or diet.

The data above are obtained from the National Kidney Disease Education Program (NKDEP) which additionally recommends that when the eGFR is used in patients with extremes of body mass index for purposes of drug dosing, the eGFR should be multiplied by the estimated BMI. ELECTROLYT Sodium Lvl 137 135 - 145 02/19 [facility] ELECTROLYT Potassium 3.5 3.5 - 5.1 02/19 Lvl [facility] ELECTROLYT Calcium Lvl 8.4 8.5 - 10.5 02/19 [facility] ELECTROLYT CO2 30 24 - 32 02/19 [facility] ELECTROLYT Chloride Lvl 102 95 - 109 02/19 [facility] ELECTROLYT Creatinine 0.9 0.5 - 1.4 02/19 ES Lvl [facility] ELECTROLYT Glucose Lvl 127 70 - 99 02/19 <sup>4</sup>I nterpretive [facility] Data: Adult reference range values reflect the clinical guidelines
of the [place] [employer]. ELECTROLYT BUN 9 7 - 22 02/19 [facility] HEMATOLOGY Basophils # 0.1 0.0 - 0.2 02/19 [facility] HEMATOLOGY Eosinophils 0.1 0.0 - 0.5 02/19 # /2014 [facility] HEMATOLOGY Monocytes # 0.9 0.0 - 0.8 02/19 [facility] HEMATOLOGY Lymphocytes 2.0 1.0 - 5.5 02/19 # [facility] HEMATOLOGY Segs 59.5 45.0 - 02/19 75.0 /2014 [facility] HEMATOLOGY Lymphocytes 25.6 20.0 - 02/19 MH 40.0 /2014 [facility] HEMATOLOGY Basophils 1.6 0.0 - 1.0 02/19 [facility] HEMATOLOGY Eosinophils 1.2 0.0 - 4.0 02/19 [facility] HEMATOLOGY Segs-Bands # 4.6 1.5 - 8.1 02/19 [facility] HEMATOLOGY Monocytes 12.1 2.0 - 12.0 02/19 [facility] HEMATOLOGY MCH 30.5 27.0 - 02/19 MH 31.0 [facility] HEMATOLOGY MCHC 34.0 32.0 - 02/19 MH 36.0 /2014 [facility] HEMATOLOGY RDW 13.3 11.5 - 02/19 MH 14.5 /2014 [facility] HEMATOLOGY Hct 31.0 42.0 - 02/19 MH 54.0 /2014 [facility] HEMATOLOGY MCV 89.6 80.0 - 02/19 MH 94.0 /2014 [facility] HEMATOLOGY MPV 9.4 7.4 - 10.4 02/19 [facility] HEMATOLOGY Platelet 188 133 - 450 02/19 [facility] HEMATOLOGY Hgb 10.5 14.0 - 02/19 MH 18.0 [facility] WBC 7.7 3.7 - 10.4 02/19 [facility] HEMATOLOGY RBC 3.46 4.70 - 02/19 MH 6.10 [facility] CHEM PANEL Lactic Acid 1.4 0.5 - 2.2 02/18 Lvl /2014 [facility] ELECTROLYT Sodium Lvl 133 135 - 145 02/18 MH ES [facility] CHEM PANEL B/C Ratio 11 6 - 25 02/18 [facility] CHEM PANEL A/G Ratio 1.0 0.7 - 1.6 02/18 [facility] CHEM PANEL Globulin 3.3 2.0 - 4.0 02/18 [facility] CHEM PANEL AGAP 9.5 10.0 - 02/18 MH 20.0 [facility] CHEM PANEL eGFR 76 02/18 <sup>2</sup>R esult [facility] Comment: The eGFR is calculated using the CKD-EPI formula. In most young, healthy individuals the eGFR will be >90 mL/min/1.73m2 . The eGFR declines with age. An eGFR of 60-89 may be normal in some populations, particularly the elderly, for whom the CKD-EPI formula has not been extensively validated. Use of the eGFR is not recommended in the following populations:& lt;br/>
I ndividuals with unstable creatinine concentration s, including patients and those with serious co-morbid conditions.<b r/>
Patie nts with extremes in muscle mass or diet.

The data above are obtained from the National Kidney Disease Education Program (NKDEP) which additionally recommends that when the eGFR is used in patients with extremes of body mass index for purposes of drug dosing, the eGFR should be multiplied by the estimated BMI. CHEM PANEL Sodium Lvl 129 135 - 145 02/18 MH [facility] CHEM PANEL Bili Total 0.7 0.2 - 1.3 02/18 MH [facility] CHEM PANEL AST 31 0 - 37 02/18 MH [facility] CHEM PANEL ALT 25 0 - 65 02/18 MH [facility] CHEM PANEL Alk Phos 32 39 - 136 02/18 MH [facility] CHEM PANEL Total 6.5 6.4 - 8.4 02/18 Protein [facility] CHEM PANEL Potassium 3.5 3.5 - 5.1 02/18 MH Lvl /2014 [facility] CHEM PANEL Albumin Lvl 3.2 3.5 - 5.0 02/18 [facility] CHEM PANEL CO2 28 24 - 32 02/18 [facility] CHEM PANEL Chloride Lvl 95 95 - 109 02/18 MH [facility] CHEM PANEL Calcium Lvl 8.2 8.5 - 10.5 02/18 [facility] CHEM PANEL Glucose Lvl 147 70 - 99 02/18 <sup>5</sup>I nterpretive [facility] Data: Adult reference range values reflect the clinical guidelines
of the [place] [employer]. CHEM PANEL Creatinine 1.0 0.5 - 1.4 02/18 MH Lvl /2014 [facility] CHEM PANEL BUN 11 7 - 22 02/18 MH [facility] ELECTROLYT AGAP 10.5 10.0 - 02/18 MH ES 20.0 /2014 [facility] ELECTROLYT Calcium Lvl 8.4 8.5 - 10.5 02/18 MH ES /2014 [facility] ELECTROLYT CO2 27 24 - 32 02/18 MH ES /2014 [facility] ELECTROLYT Chloride Lvl 96 95 - 109 02/18 MH ES [facility] ELECTROLYT eGFR 76 02/18 <sup>3</sup>R MH ES esult [facility] Comment: The eGFR is calculated using the CKD-EPI formula. In most young, healthy individuals the eGFR will be >90 mL/min/1.73m2 . The eGFR declines with age. An eGFR of 60-89 may be normal in some populations, particularly the elderly, for whom the CKD-EPI formula has not been extensively validated. Use of the eGFR is not recommended in the following populations:& lt;br/>
I ndividuals with unstable creatinine concentration s, including patients and those with serious co-morbid conditions.<b r/>
Patie nts with extremes in muscle mass or diet.

The data above are obtained from the National Kidney Disease Education Program (NKDEP) which additionally recommends that when the eGFR is used in patients with extremes of body mass index for purposes of drug dosing, the eGFR should be multiplied by the estimated BMI. ELECTROLYT Potassium 3.5 3.5 - 5.1 02/18 MH ES Lvl /2014 [facility] ELECTROLYT Sodium Lvl 130 135 - 145 02/18 MH ES [facility] ELECTROLYT Creatinine 1.0 0.5 - 1.4 02/18 MH ES Lvl /2014 [facility] ELECTROLYT BUN 11 7 - 22 02/18 MH ES [facility] ELECTROLYT Glucose Lvl 145 70 - 99 02/18 <sup>6</sup>I MH nterpretive [facility] Data: Adult reference range values reflect the clinical guidelines
of the [place] [employer]. HEMATOLOGY Lymphocytes 12.7 20.0 - 02/18 MH 40.0 /2014 [facility] HEMATOLOGY Segs 74.1 45.0 - 02/18 MH 75.0 /2015 [facility] HEMATOLOGY Monocytes 12.6 2.0 - 12.0 02/18 /2014 [facility] HEMATOLOGY Monocytes # 1.6 0.0 - 0.8 02/18 /2014 [facility] HEMATOLOGY Lymphocytes 1.6 1.0 - 5.5 /20 MH # /2014 [facility] HEMATOLOGY Basophils 0.2 0.0 - 1.0 02/18 MH /2014 [facility] HEMATOLOGY Eosinophils 0.4 0.0 - 4.0 02/18 MH /2014 [facility] HEMATOLOGY Segs-Bands # 9.6 1.5 - 8.1 02/18 /2014 [facility] HEMATOLOGY Eosinophils 0.1 0.0 - 0.5 20 MH # /2014 [facility] HEMATOLOGY RBC 3.97 4.70 - 02/18 MH 6.10 /2014 [facility] HEMATOLOGY WBC 13.0 3.7 - 10.4 02/18 /2014 [facility] HEMATOLOGY MPV 9.7 7.4 - 10.4 02/18 /2014 [facility] HEMATOLOGY RDW 13.1 11.5 - 02/18 MH 14.5 /2014 [facility] HEMATOLOGY Platelet 202 133 - 450 02/18 /2014 [facility] HEMATOLOGY Hct 34.8 42.0 - 02/18 MH 54.0 /2014 [facility] HEMATOLOGY MCV 87.8 80.0 - 02/18 MH 94.0 /2014 [facility] HEMATOLOGY Hgb 11.9 14.0 - 02/18 MH 18.0 /2014 [facility] HEMATOLOGY MCH 30.1 27.0 - 02/18 MH 31.0 /2014 [facility] HEMATOLOGY MCHC 34.3 32.0 - 02/18 MH 36.0 /2014 [facility] CHEM PANEL Lactic Acid 1.1 0.5 - 2.2 02/18 Lvl /2014 [facility] LIPIDS VLDL 14 02/18 /2014 [facility] LIPIDS LDL 25 <=99 mg/dL 02/18 (Calculated) [facility] LIPIDS Chol 91 <=199 02/18 mg/dL /2014 [facility] LIPIDS CHD Risk 1.75 4.00 - 02/18 MH 7.30 [facility] LIPIDS HDL 52 >=61 mg/dL 02/18 [facility] LIPIDS Trig 71 <=149 02/18 mg/dL /2014 [facility] THYROID TSH 1.790 0.360 - 02/18 PANEL 3.740 /2014 [facility] BACTERIAL MRSA by PCR Negative 16 02/18 <sup>16</sup> - SEROLOGY (02/17/15 7:29 PM) Interpretive [facility] Data: Interpretive Data: The [employer] LightCycler MRSA assay is a qualitative test for the direct detection of nasal colonization with methicillin-r esistant Staphylococcu s aureus (MRSA) to aid in the prevention and control of MRSA infections in healthcare settings. A positive result does not indicate an infection or require treatment. A negative result does not exclude colonization or infection.

The polymerase chain reaction (PCR) assay detects a proprietary sequence indicative of the integration of the SCCmec cassette into the Staphylococcu s aureus chromosome, indicating the presence of MRSA DNA. The assay utilizes FDA cleared IVD reagents. Performance characteristi cs have been verified by the [facility] within the [facility]. The [facility] is authorized under the Clinical Laboratory Improvement Amendment of 1988 (CLIA-88) to perform high complexity testing. CHEM PANEL Lactic Acid 1.0 0.5 - 2.2 02/18 Lvl /2014 [facility] HEMATOLOGY Platelet 193 133 - 450 02/18 [facility] HEMATOLOGY PTT 25.3 22.9 - 02/18 <sup>14</sup> MH 35.8 /2014 Interpretive [facility] Data: Heparin Therapeutic Range: 57 - 92 Seconds DRUG UDS Note See Note 8 02/17 <sup>8</sup>I MH SCREEN (02/17/15 4:40 PM) nterpretive [facility] Data: Drugs reported as positive have not been confirmed by a second
me thod and should be used for medical purposes only. To order
con firmation, contact laboratory.<b r/>
not e: Below are cut-off concentration s for all urine drugs of
abuse performed in the laboratory. Some drugs listed in the table
may not be included in this panel.
<b r/>Descriptio n Cut-off concentration
----- ------
Am phetamine 1000 ng/mL
Bar biturates 200 ng/mL
Zaheer zodiazepines 300 ng/mL
Amauri chris metabolites 300 ng/mL
Opi ates 300 ng/mL
Phencyclidine 25 ng/mL
Pro poxyphene 300 ng/mL
Marijuana metabolites 50 ng/mL
Met hadone 300 ng/mL
Urine alcohol 20 mg/dL DRUG U Phencyc Negative Negative 02/17 MH SCREEN Scr *NA* /2014 [facility] (02/17/15 4:40 PM) DRUG U Opiate Scr Negative Negative 02/17 MH SCREEN *NA* /2014 [facility] (02/17/15 4:40 PM) DRUG U Cannab Scr Negative Negative 02/17 MH SCREEN *NA* /2014 [facility] (02/17/15 4:40 PM) DRUG U Cocaine Positive Negative 02/17 MH SCREEN Scr *ABN* /2014 [facility] (02/17/15 4:40 PM) DRUG U Benzodia Negative Negative 02/17 SCREEN Scr *NA* [facility] (02/17/15 4:40 PM) DRUG U Marilee Scr Negative Negative 02/17 SCREEN *NA* [facility] (02/17/15 4:40 PM) DRUG U Amph Scr Negative Negative 02/17 SCREEN [facility] (02/17/15 4:40 PM) URINE AND UA Blood Negative Negative 02/17 STOOL (02/17/15 4:40 PM) /2014 [facility] URINE AND UA Glucose >=1000 Negative 02/17 STOOL mg/dL mg/dL /2014 [facility] URINE AND UA Bili Negative Negative 02/17 STOOL *NA* [facility] (02/17/15 4:40 PM) URINE AND UA Color Yellow Yellow 02/17 STOOL [facility] (02/17/15 4:40 PM) URINE AND UA Spec Grav 1.010 <=1.030 02/17 STOOL /2014 [facility] URINE AND UA Turbidity Clear Clear 02/17 STOOL (02/17/15 4:40 PM) /2014 [facility] URINE AND UA pH 6.0 5.0 - 8.0 02/17 STOOL [facility] URINE AND UA Leuk Est Negative Negative 02/17 STOOL (02/17/15 4:40 PM) [facility] URINE AND UA Nitrite Negative Negative 02/17 STOOL (02/17/15 4:40 PM) [facility] URINE AND UA 0.2 0.1 - 1.0 02/17 STOOL Urobilinogen /2014 [facility] URINE AND UA Ketones Negative Negative 02/17 STO[facility] mg/dL mg/dL /2014 [facility] URINE AND UA Protein Negative Negative 02/17 STOOL mg/dL mg/dL [facility] URINE AND UA RBC 0-2 /HPF 0 - 2 02/17 STOOL [facility] URINE AND UA Bacteria Few /HPF None Seen 02/17 STOOL /HPF /2014 [facility] URINE AND UA Sq Epi Few /LPF Few /LPF 02/17 STOOL [facility] URINE AND UA WBC 0-2 /HPF None Seen 02/17 STOOL /HPF /2014 [facility] CHEM PANEL Osmolality 255 280 - 300 02/17 [facility] URINE CHEM U Sodium 53 02/17 <sup>12</sup> MH Interpretive [facility] Data: No established reference ranges. URINE CHEM U Osmolality 344 300 - 800 02/17 [facility] URINE CHEM U Creatinine 36.2 02/17 <sup>11</sup> MH /2014 Interpretive [facility] Data: No established reference ranges. URINE CHEM U Chloride 72 02/17 /2014 [facility] CARDIAC CK MB 7.2 0.5 - 3.6 02/17 ENZYMES /2014 [facility] CARDIAC BNP 92 <=100 02/17 <sup>7</sup>I ENZYMES pg/mL /2014 nterpretive [facility] Data: Elevated results are in line with increasing severity of
con gestive heart failure. Minor elevations between 100 and 300
may be seen with Myocardial Ischemia, Sodium retaining drugs,
an d compensated/t reated heart failure. CARDIAC Total CK 493 12 - 191 02/17 ENZYMES /2014 [facility] CARDIAC CK MB Index 1.5 0.0 - 2.5 02/17 ENZYMES /2014 [facility] CARDIAC Troponin-I 0.11 0.00 - 02/17 ENZYMES 0.40 [facility] CHEM PANEL Procalcitoni <0.05 0.00 - 02/17 n Lvl ng/mL 0.10 /2014 [facility] CHEM PANEL Bili Total 0.7 0.2 - 1.3 02/17 [facility] CHEM PANEL AST 28 0 - 37 02/17 /2014 [facility] CHEM PANEL Globulin 3.5 2.0 - 4.0 02/17 /2014 [facility] CHEM PANEL Total 7.3 6.4 - 8.4 02/17 Protein /2014 [facility] CHEM PANEL Albumin Lvl 3.8 3.5 - 5.0 02/17 [facility] CHEM PANEL Alk Phos 38 39 - 136 02/17 [facility] CHEM PANEL ALT 24 0 - 65 02/17 [facility] CHEM PANEL A/G Ratio 1.1 0.7 - 1.6 02/17 [facility] CHEM PANEL B/C Ratio 11 6 - 25 02/17 [facility] HEMATOLOGY Basophils # 0.1 0.0 - 0.2 02/17 [facility] HEMATOLOGY Segs-Bands # 10.7 1.5 - 8.1 02/17 [facility] HEMATOLOGY Lymphocytes 1.2 1.0 - 5.5 02/17 MH # /2015 [facility] HEMATOLOGY Monocytes # 1.5 0.0 - 0.8 02/17 MH /2014 [facility] HEMATOLOGY Segs 79.6 45.0 - 02/17 MH 75.0 /2014 [facility] HEMATOLOGY Lymphocytes 8.8 20.0 - 02/17 MH 40.0 /2014 [facility] HEMATOLOGY Monocytes 10.8 2.0 - 12.0 02/17 /2014 [facility] HEMATOLOGY Basophils 0.5 0.0 - 1.0 02/17 /2014 [facility] HEMATOLOGY Eosinophils 0.3 0.0 - 4.0 02/17 /2014 [facility] HEMATOLOGY PT 13.3 12.0 - 02/17 MH 14.7 /2014 [facility] HEMATOLOGY PTT 26.3 22.9 - 02/17 <sup>15</sup> 35.8 /2014 Interpretive [facility] Data: Heparin Therapeutic Range: 57 - 92 Seconds HEMATOLOGY INR 1.01 0.85 - 02/17 <sup>13</sup> 1.17 /2014 Interpretive [facility] Data: RECOMMENDED RANGES FOR PROTIME INR:
2.0-3.0 for most medical and surgical thromboemboli c states.
2.5-3.5 for artificial heart valves and recurrent embolism.<br/ >
INR SHOULD BE USED ONLY FOR PATIENTS ON STABLE ANTICOAGULANT THERAPY. HEMATOLOGY MCHC 33.5 32.0 - 02/17 36.0 /2014 [facility] HEMATOLOGY RDW 13.0 11.5 - 02/17 14.5 /2014 [facility] HEMATOLOGY Hct 39.1 42.0 - 02/17 54.0 /2014 [facility] HEMATOLOGY WBC 13.5 3.7 - 10.4 02/17 /2014 [facility] HEMATOLOGY MCV 90.1 80.0 - 02/17 94.0 /2014 [facility] HEMATOLOGY MCH 30.2 27.0 - 02/17 MH 31.0 /2014 [facility] HEMATOLOGY MPV 9.5 7.4 - 10.4 02/17 /2014 [facility] HEMATOLOGY RBC 4.34 4.70 - 02/17 6.10 /2014 [facility] HEMATOLOGY Hgb 13.1 14.0 - 02/17 18.0 /2014 [facility] TOXICOLOGY Etoh (%) <0.003 02/17 <sup>9</sup>I /2014 nterpretive [facility] Data: Ethanol testing results should be used for medical purposes only.
Neg ative Range: <0.003%
T oxic Range: >0.25% TOXICOLOGY Ethanol Lvl <3 02/17 <sup>10</sup> MH Interpretive [facility] Data: Negative Range: <3 mg/dL
Tox ic Range: >250 mg/dL URINE AND UA Ketones Negative Negative 02/17 STOOL *NA* /2014 [facility] (02/17/15 10:08 AM) URINE AND UA Bili Negative Negative 02/17 STOOL *NA* /2014 [facility] (02/17/15 10:08 AM) URINE AND UA 0.2 0.1 - 1.0 02/17 STOOL Urobilinogen /2014 [facility] URINE AND UA Blood Negative Negative 02/17 [facility] (02/17/15 10:08 AM) [facility] URINE AND UA Nitrite Negative Negative 02/17 STOOL (02/17/15 10:08 AM) [facility] URINE AND UA Leuk Est Negative Negative 02/17 STOOL (02/17/15 10:08 AM) [facility] URINE AND UA Spec Grav <=1.005 <=1.030 02/17 STOOL *NA* /2014 [facility] (02/17/15 10:08 AM) URINE AND UA Glucose 100 mg/dL Negative 02/17 STOOL mg/dL /2014 [facility] URINE AND UA Protein Negative Negative 02/17 STOOL (02/17/15 10:08 AM) [facility] URINE AND UA pH 7.0 5.0 - 8.0 02/17 STOOL /2014 [facility] URINE AND UA Color Yellow Yellow 02/17 STOOL *NA* /2014 [facility] (02/17/15 10:08 AM) URINE AND UA Turbidity Clear Clear 02/17 STOOL (02/17/15 10:08 AM) [facility] URINE AND UA WBC None Seen None Seen 02/17 STO[facility] (02/17/15 10:08 AM) [facility] URINE AND UA RBC None Seen 0 - 2 02/17 STO[facility] (02/17/15 10:08 AM) [facility] URINE AND UA Bacteria None Seen None Seen 02/17 STOOL (02/17/15 10:08 AM) [facility] URINE AND UA Sq Epi None Seen Few 02/17 STOOL (02/17/15 10:08 AM) [facility] CHEM PANEL eGFR 68 06/10 <sup>2</sup>R MH esult [facility] Comment: The eGFR is calculated using the CKD-EPI formula. In most young, healthy individuals the eGFR will be >90 mL/min/1.73m2 . The eGFR declines with age. An eGFR of 60-89 may be normal in some populations, particularly the elderly, for whom the CKD-EPI formula has not been extensively validated. Use of the eGFR is not recommended in the following populations:& lt;br/>
I ndividuals with unstable creatinine concentration s, including patients and those with serious co-morbid conditions.<b r/>
Patie nts with extremes in muscle mass or diet.

The data above are obtained from the National Kidney Disease Education Program (NKDEP) which additionally recommends that when the eGFR is used in patients with extremes of body mass index for purposes of drug dosing, the eGFR should be multiplied by the estimated BMI. CHEM PANEL Globulin 3.3 2.0 - 4.0 06/10 [facility] CHEM PANEL A/G Ratio 1.0 0.7 - 1.6 06/10 [facility] CHEM PANEL Alk Phos 43 39 - 136 06/10 [facility] CHEM PANEL Bili Total 0.3 0.2 - 1.3 06/10 [facility] CHEM PANEL B/C Ratio 17 6 - 25 06/10 [facility] CHEM PANEL AGAP 10.8 10.0 - 06/10 MH 20.0 /2013 [facility] CHEM PANEL Calcium Lvl 9.3 8.5 - 10.5 06/10 [facility] CHEM PANEL Total 6.7 6.4 - 8.4 06/10 [facility] CHEM PANEL Albumin Lvl 3.4 3.5 - 5.0 06/10 [facility] CHEM PANEL ALT 22 0 - 65 06/10 [facility] CHEM PANEL AST 15 0 - 37 06/10 [facility] CHEM PANEL CO2 36 24 - 32 06/10 [facility] CHEM PANEL Glucose Lvl 301 70 - 99 06/10 <sup>5</sup>I MH nterpretive [facility] Data: Adult reference range values reflect the clinical guidelines
of the [place] [employer]. CHEM PANEL BUN 19 7 - 22 06/10 [facility] CHEM PANEL Sodium Lvl 137 135 - 145 06/10 [facility] CHEM PANEL Creatinine 1.1 0.5 - 1.4 06/10 Lvl [facility] CHEM PANEL Potassium 4.8 3.5 - 5.1 06/10 Lvl [facility] CHEM PANEL Chloride Lvl 95 95 - 109 06/10 [facility] HEMATOLOGY MCH 31.6 27.0 - 06/10 31.0 /2013 [facility] HEMATOLOGY MCHC 34.5 32.0 - 06/10 MH 36.0 /2013 [facility] HEMATOLOGY MCV 91.6 80.0 - 06/10 94.0 /2013 [facility] HEMATOLOGY Hct 41.8 42.0 - 06/10 54.0 /2013 [facility] HEMATOLOGY Platelet 187 133 - 450 06/10 [facility] HEMATOLOGY MPV 10.2 7.4 - 10.4 06/10 [facility] HEMATOLOGY RDW 14.1 11.5 - 06/10 14.5 [facility] HEMATOLOGY RBC 4.56 4.70 - 06/10 MH 6. [facility] HEMATOLOGY Hgb 14.4 14.0 - 06/10 18.0 [facility] HEMATOLOGY WBC 14.8 3.7 - 10.4 06/10 [facility] CARDIAC Total CK 67 12 - 191 06/09 ENZYMES /2013 [facility] CARDIAC Troponin-I <0.02 0.00 - 06/09 ENZYMES 0.40 [facility] CARDIAC BNP 13 <=100 06/09 <sup>7</sup>I ENZYMES pg/mL /2013 nterpretive [facility] Data: Elevated results are in line with increasing severity of
con gestive heart failure. Minor elevations between 100 and 300
may be seen with Myocardial Ischemia, Sodium retaining drugs,
an d compensated/t reated heart failure. CARDIAC Total CK 65 12 - 191 06/09 ENZYMES /2013 [facility] CARDIAC Troponin-I <0.02 0.00 - 06/09 ENZYMES 0.40 [facility] CHEM PANEL eGFR 76 06/09 <sup>3</sup>R esult [facility] Comment: The eGFR is calculated using the CKD-EPI formula. In most young, healthy individuals the eGFR will be >90 mL/min/1.73m2 . The eGFR declines with age. An eGFR of 60-89 may be normal in some populations, particularly the elderly, for whom the CKD-EPI formula has not been extensively validated. Use of the eGFR is not recommended in the following populations:& lt;br/>
I ndividuals with unstable creatinine concentration s, including patients and those with serious co-morbid conditions.<b r/>
Patie nts with extremes in muscle mass or diet.

The data above are obtained from the National Kidney Disease Education Program (NKDEP) which additionally recommends that when the eGFR is used in patients with extremes of body mass index for purposes of drug dosing, the eGFR should be multiplied by the estimated BMI. CHEM PANEL Creatinine 1.0 0.5 - 1.4 06/09 Lvl [facility] HEMATOLOGY PTT 29.8 22.9 - 06/09 <sup>10</sup> MH 35.8 /2013 Interpretive [facility] Data: Heparin Therapeutic Range: 57 - 92 Seconds HEMATOLOGY Platelet 174 133 - 450 06/09 [facility] URINE AND UA Color Yellow Yellow 06/09 STOOL *NA* [facility] (06/08/14 9:15 PM) URINE AND UA Leuk Est Negative Negative 06/09 [facility] (06/08/14 9:15 PM) [facility] URINE AND UA Nitrite Negative Negative 06/09 STOOL (06/08/14 9:15 PM) [facility] URINE AND UA 0.2 0.1 - 1.0 06/09 STOOL Urobilinogen [facility] URINE AND UA Glucose Negative Negative 06/09 STOOL (06/08/14 9:15 PM) [facility] URINE AND UA Protein Trace Negative 06/09 STOOL *ABN* [facility] (06/08/14 9:15 PM) URINE AND UA pH 6.0 5.0 - 8.0 06/09 STOOL [facility] URINE AND UA Spec Grav >=1.030 <=1.030 06/09 STOOL *ABN* [facility] (06/08/14 9:15 PM) URINE AND UA Ketones Negative Negative 06/09 STOOL *NA* [facility] (06/08/14 9:15 PM) URINE AND UA Bili Negative Negative 06/09 STOOL *NA* [facility] (06/08/14 9:15 PM) URINE AND UA Turbidity Clear Clear 06/09 STOOL (06/08/14 9:15 PM) [facility] URINE AND UA Blood Negative Negative 06/09 STOOL (06/08/14 9:15 PM) [facility] URINE AND UA WBC 0-2 /HPF None Seen 06/09 STOOL /HPF /2013 [facility] URINE AND UA Mucus Rare /LPF None Seen 06/09 STOOL /LPF [facility] URINE AND UA Sq Epi Rare /LPF Few /LPF 06/09 STOOL [facility] URINE AND UA RBC 0-2 /HPF 0 - 2 06/09 STOOL [facility] URINE AND UA Fine Gran 0-2 /LPF None Seen 06/09 STOOL /LPF [facility] CARDIAC CK MB 1.3 0.5 - 3.6 06/09 ENZYMES [facility] CARDIAC Total CK 93 12 - 191 06/09 ENZYMES [facility] CARDIAC Troponin-I <0.02 0.00 - 06/09 ENZYMES 0.40 /2013 [facility] CARDIAC BNP 18 <=100 06/09 <sup>8</sup>I ENZYMES pg/mL nterpretive [facility] Data: Elevated results are in line with increasing severity of
con gestive heart failure. Minor elevations between 100 and 300
may be seen with Myocardial Ischemia, Sodium retaining drugs,
an d compensated/t reated heart failure. CARDIAC CK MB Index 1.4 0.0 - 2.5 06/09 ENZYMES [facility] CHEM PANEL eGFR 68 06/09 <sup>4</sup>R esult [facility] Comment: The eGFR is calculated using the CKD-EPI formula. In most young, healthy individuals the eGFR will be >90 mL/min/1.73m2 . The eGFR declines with age. An eGFR of 60-89 may be normal in some populations, particularly the elderly, for whom the CKD-EPI formula has not been extensively validated. Use of the eGFR is not recommended in the following populations:& lt;br/>
I ndividuals with unstable creatinine concentration s, including patients and those with serious co-morbid conditions.<b r/>
Patie nts with extremes in muscle mass or diet.

The data above are obtained from the National Kidney Disease Education Program ([employer]) which additionally recommends that when the eGFR is used in patients with extremes of body mass index for purposes of drug dosing, the eGFR should be multiplied by the estimated BMI. HEMATOLOGY INR 0.90 0.85 - 06/09 <sup>9</sup>I 1.17 nterpretive [facility] Data: RECOMMENDED RANGES FOR PROTIME INR:
2.0-3.0 for most medical and surgical thromboemboli c states.
2.5-3.5 for artificial heart valves and recurrent embolism.<br/ >
INR SHOULD BE USED ONLY FOR PATIENTS ON STABLE ANTICOAGULANT THERAPY. HEMATOLOGY PTT 28.6 22.9 - 06/09 <sup>11</sup> MH 35.8 /2013 Interpretive [facility] Data: Heparin Therapeutic Range: 57 - 92 Seconds HEMATOLOGY PT 12.1 12.0 - 06/09 14.7 [facility] CHEM PANEL ALT 29 0 - 65 06/09 [facility] CHEM PANEL A/G Ratio 0.9 0.7 - 1.6 06/09 [facility] CHEM PANEL Alk Phos 53 39 - 136 06/09 [facility] CHEM PANEL AST 24 0 - 37 06/09 [facility] CHEM PANEL Bili Total 0.5 0.2 - 1.3 06/09 [facility] CHEM PANEL B/C Ratio 18 6 - 25 06/09 [facility] CHEM PANEL Globulin 4.0 2.0 - 4.0 06/09 [facility] CHEM PANEL Total 7.5 6.4 - 8.4 06/09 Protein [facility] CHEM PANEL Albumin Lvl 3.5 3.5 - 5.0 06/09 [facility] CHEM PANEL Potassium 4.5 3.5 - 5.1 06/09 [facility] CHEM PANEL CO2 41 24 - 32 06/09 <sup>1</sup>R esult [facility] Comment: Critical Result(s) called to Theodore Johnson at 06/08/2014 20:56 by [facility]. Read back OK. CHEM PANEL Chloride Lvl 96 95 - 109 06/09 [facility] CHEM PANEL Calcium Lvl 9.2 8.5 - 10.5 06/09 [facility] CHEM PANEL AGAP 6.5 10.0 - 06/09 20.0 /2013 [facility] CHEM PANEL Sodium Lvl 139 135 - 145 06/092013 [facility] CHEM PANEL Creatinine 1.1 0.5 - 1.4 06/09 Lvl /2013 [facility] CHEM PANEL BUN 20 7 - 22 06/09 [facility] CHEM PANEL Glucose Lvl 199 70 - 99 06/09 <sup>6</sup>I /2013 nterpretive [facility] Data: Adult reference range values reflect the clinical guidelines
of the [place] [employer]. HEMATOLOGY MCV 90.8 80.0 - 06/09 94.0 /2013 [facility] HEMATOLOGY Hct 45.4 42.0 - 06/09 MH 54.0 /2013 [facility] HEMATOLOGY MCH 31.6 27.0 - 06/09 MH 31.0 /2013 [facility] HEMATOLOGY RBC 5.00 4.70 - 06/09 6.10 [facility] HEMATOLOGY Hgb 15.8 14.0 - 06/09 18.0 /2013 [facility] HEMATOLOGY WBC 8.5 3.7 - 10.4 06/09 /2013 [facility] HEMATOLOGY MCHC 34.8 32.0 - 06/09 36.0 /2013 [facility] HEMATOLOGY Platelet 186 133 - 450 06/09 /2013 [facility] HEMATOLOGY RDW 14.1 11.5 - 06/09 14.5 /2013 [facility] HEMATOLOGY MPV 9.6 7.4 - 10.4 06/09 /2013 [facility] HEMATOLOGY Eosinophils 0.3 0.0 - 0.5 06/09 MH # /2013 [facility] HEMATOLOGY Basophils # 0.1 0.0 - 0.2 06/09 /2013 [facility] HEMATOLOGY Monocytes # 1.1 0.0 - 0.8 06/09 /2013 [facility] HEMATOLOGY Segs 62.9 45.0 - 06/09 75.0 /2013 [facility] HEMATOLOGY Lymphocytes 1.7 1.0 - 5.5 06/09 # /2013 [facility] HEMATOLOGY Eosinophils 3.0 0.0 - 4.0 06/09 /2013 [facility] HEMATOLOGY Basophils 1.3 0.0 - 1.0 06/09 /2013 [facility] HEMATOLOGY Monocytes 13.0 2.0 - 12.0 06/09 /2013 [facility] HEMATOLOGY Lymphocytes 19.8 20.0 - 06/09 40.0 /2013 [facility] HEMATOLOGY Segs-Bands # 5.3 1.5 - 8.1 06/09 [facility] Pathology Reports No Data Provided for This Section Diagnostic Reports Report Value Date Source Chest 1view DX Clinical Indication: - R/O PNA 06/05/2017 [facility] Comparison: 05/24/2017 FINDINGS: AP chest radiograph was obtained. MEDIASTINUM: The cardiac silhouette is normal in size. The aorta demonstrates atherosclerotic calcification. LUNGS: Lung volumes are unchanged. There is hazy opacity within the right mid and lower lung with blunting of the right costophrenic angle and silhouetting the right hemidiaphragm. There is linear opacity in the left lung base. BONES: The visualized osseous structures are unremarkable. IMPRESSION: 1. Worsening right mid and lower lung airspace disease with suggestion of a small effusion. Atelectasis in the left lung base. SL: [id number] Abdomen RUQ US Clinical Indication: - RUQ pain; 06/03/2017 [facility] Comparison: None TECHNIQUE: Grayscale and limited color sonographic evaluation of the right upper quadrant of the abdomen and gallbladder region was performed with standard technique. FINDINGS: LIVER: The liver is enlarged at 18.9 cm with increased parenchymal echotexture. BILE DUCTS: The intrahepatic and extrahepatic bile ducts are not dilated with the common bile duct measuring mm. The distal common bile duct is not well seen. GALLBLADDER: The gallbladder wall is thickened at 5.8 cm with gallbladder sludge. PANCREAS: The visualized pancreas appears unremarkable. KIDNEY: The right kidney measures 9.3 x 3.3 x 4.5 cm. There is normal renal contour and morphology, with normal parenchymal echotexture. There is no hydronephrosis. AORTA AND INFERIOR VENA CAVA: Visualized portions appear unremarkable. ASCITES: There is a large amount of right upper quadrant abdominal ascites. IMPRESSION: 1. Gallbladder sludge with question of acute cholecystitis versus pseudothickening secondary to ascites. 2. Hepatic steatosis and hepatomegaly with associated ascites. SL: [id number] Retroperitoneal Complete Clinical Indication: Renal failure 05/25/2017 [facility] Comparison: CT dated 2017 TECHNIQUE: Multiple longitudinal and transverse real time sonographic images of the kidneys and urinary bladder are obtained. FINDINGS: KIDNEY: The right kidney measures 8.5 x 4.1 x 5.1 cm. The left kidney measures 14 x 7.7 x 5.5 cm. The kidneys are normal in size, shape, contour, and position. The right kidney is atrophic. There is increased echogenicity to the right renal cortex. Left renal cortex appears normal in echogenicity. There is no hydronephrosis, nephrolithiasis, or abnormal perinephric collections. BLADDER: Bladder is emptied by Merida catheter. ASCITES: No ascites noted. IMPRESSION: Atrophic echogenic right kidney. No hydronephrosis. SL: [id number] Chest 1view DX Clinical Indication: Dyspnea - low O2 stats. 05/24/2017 [facility] Comparison: 05/23. TECHNIQUE: AP 1 view chest radiograph was performed. FINDINGS: LUNGS: Normal lung volumes. Mild linear atelectasis within the left lung base. Lungs are otherwise clear. No pleural effusions or pneumothorax. HEART AND MEDIASTINUM: The heart size is normal. The pulmonary vasculature is normal. The mediastinal contour is normal. The trachea is midline. OSSEOUS STRUCTURES: No acute abnormality seen. IMPRESSION: 1. Left basilar atelectasis. Otherwise no acute cardiopulmonary disease. SL: [id number] Chest 2 views DX Clinical Indication: - cholecystitis. 2017 [facility] Comparison: 07/2016. TECHNIQUE: PA and lateral chest radiographs were performed. (2 views) FINDINGS: LUNGS: Normal lung volumes. Rounded nodule within the right lung base likely represents a granuloma and is unchanged from the previous study. Lungs are otherwise clear. No pleural effusions or pneumothorax. HEART AND MEDIASTINUM: The heart size is normal. The pulmonary vasculature is normal. The mediastinal contour is normal. The trachea is midline. OSSEOUS STRUCTURES: No acute abnormality seen. IMPRESSION: 1. No acute cardiopulmonary disease. SL: [id number] Abdomen RUQ US Clinical Indication: ; Abnormal CT, upper abdominal pain and cramping since last night 2017 [facility] Comparison: CT same day TECHNIQUE: Grayscale and limited color sonographic evaluation of the right upper quadrant of the abdomen and gallbladder region was performed with standard technique. FINDINGS: Limited due to bowel gas and body habitus LIVER: The visualized liver shows normal contour, upper normal size at 17 cm, and morphology with increase echotexture compatible with hepatic steatosis. The limited visualized portal vein is grossly patent. BILE DUCTS: The intrahepatic and extrahepatic bile ducts are not dilated with the common bile duct measuring 3 mm. The distal common bile duct is not well seen. CT same day shows more mid to distal common bile duct dilatation GALLBLADDER: Not well-visualized due to limits of the exam. There is suggestion for gallbladder wall thickening. There is some sludge within the lumen. Portions of the gallbladder neck aspect is not well-visualized. Cannot adequately evaluate the yocasta hepatis or peripancreatic region. CT same day does show some fluid. Differential includes cholecystitis, correlate with symptomatology. If there is further clinical need for imaging workup can consider HIDA scan PANCREAS: Not adequately visualized due to bowel gas and body habitus. KIDNEY: The right kidney measures 8.9 x 4.5 x 4.7 cm. There is normal renal contour and morphology, with normal parenchymal echotexture. There is no hydronephrosis. AORTA AND INFERIOR VENA CAVA: Not adequately visualized. ASCITES: There is no right upper quadrant abdominal ascites. IMPRESSION: 1. Extremely limited study due to bowel gas and body habitus 2. There is hepatic steatosis 3. Gallbladder not well visualized. There is wall thickening and sludge. Portions of gallbladder cannot be fully evaluated to completely exclude underlying stones. CT same day does suggest more distal common bile duct mild dilatation and yocasta hepatis region fluid. See above discussion. . SL: [id number] ED Abdomen/Pelvis IV Clinical Indication: - abd pain; abdominal pain and cramping since last night, history of COPD reflux hypertension abdominal aorta aneurysm repair 2017 [facility] contrast only CT Comparison: None Technique: Multi-detector CT imaging of the abdomen and pelvis is performed with contrast. Coronal and sagittal reconstructions were obtained. IV CONTRAST: 100 mL of Omnipaque GI CONTRAST: No oral contrast was administered which can limit assessment. CT Radiation Dose: DLP 10:15 mGy-cm FINDINGS: CT ABDOMEN WITH CONTRAST: LUNG BASES: Unremarkable. ABDOMINAL SOLID ORGANS: Gallbladder is distended. Pericholecystic inflammatory stranding and trace fluid yocasta hepatis region noted. Trace fluid also noted extending right paracolic gutter region. Additionally there are enlarg ed periportal and pericaval lymph nodes measuring up to 1.4 x 2.1 cm. The extrahepatic common bile duct is mildly dilated at 12 mm. No obvious significant intrahepatic ductal dilatation. No CT radiation gallstones however can correlate further with ultrasound to fully evaluate biliary and gallbladder pathology to exclude underlying radiolucent stones or other process. The right kidney is smaller as compared to the left kidney measuring 8 cm in length as compared to 11.8 cm. Kidneys enhance symmetrically. Vascular calcifications are present. There are tiny low densiti es bilaterally measurement 1.4 cm possibly of renal cysts, some of which are too small to fully characterize by imaging. The contrast enhanced images of the liver, spleen, pancreas, adrenals are normal. STOMACH AND BOWEL: Lack of oral contrast limits assessment. Stomach and small and large bowel loops are grossly unremarkable. Appendix not visualized. PERITONEUM AND RETROPERITONEUM: There is no abdominal lymphadenopathy. There is no pneumoperitoneum. There are no retroperitoneal abnormalities. VASCULAR STRUCTURES: Patient is post abdominal aortic aneurysm endograft repair. Specifically there is endograft extending at and below level of renal arteries with 2 limbs extending to the bilateral common iliac arteries. Contrast timing and non-CTA study limits full evaluation. Th e [place] aneurysm sac measures 7.7 x 7 and extending 10.3 cm in length. No retroperitoneal collections. Axial images 45 through 49 show subtle densities within the aneurysm sac either calcification versus punctate areas of contrast not completely excluded. This is a single phase study however and evaluati on for any of the endoleak subtypes cannot adequately be performed. If there is clinical need to further evaluate can consider comparison with remote imaging if available or short follow-up with endoleak pre and postcontrast and delayed CTA imaging. Mesenteric and renal artery takeoffs are not well evaluated. The inferior vena cava is unremarkable. The mesenteric vessels and portal veinous structures are grossly patent. OSSEOUS STRUCTURES: L4-5 and L5-S1 degenerative changes with loss of disc spacing and vacuum disc phenomenon. There is mild retrolisthesis L4 on L5 at 5 mm. Likely superimposed foraminal stenosis at L4-5. No obvious acute osseous adenopathy. ------- CT PELVIS WITH CONTRAST: BOWEL: Rectosigmoid colon is unremarkable. PERITONEAL AND EXTRAPERITONEAL REGIONS: There is no pelvic free fluid or lymphadenopathy. The inguinal regions are unremarkable. BLADDER / : The bladder is unremarkable. OSSEOUS STRUCTURES: There are no significant osseous abnormalities seen. ----- IMPRESSION: 1. Gallbladder distended and shows pericholecystic fat stranding and mild fluid as well as enlarged periportal lymph nodes and extrahepatic mild biliary dilatation. Differential includes sequela of cho lecystitis. May consider further workup to include dedicated sonography. 2. Patient is post AAA endograft repair as discussed above not well evaluated by this single phase contrast study. No obvious acute retroperitoneal collections. 3. Right renal atrophy is noted as compared to the left. Spine cervical wo Patient Name: ELIDIA Castro OMA 07/29/2016 [facility] MRI : 1945; Age: 71 years y/o Male MR: [id number] Study: Spine cervical wo contrast MRI 07/28/2016 12:32 PM 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 Ordering Physician: Mata Kraft MD Clinical Indication: Gait abnormalities; bilateral lower extremity weakness Comparison: CT on 02/17/2015 TECHNIQUE: Multiplanar T1, T2, and STIR weighted MRI of the cervical spine is performed. FINDINGS: ALIGNMENT AND GENERAL ASSESSMENT: There is normal alignment of the cervical spine without trauma or bony destruction. No aggressive bone marrow abnormality is present. The prevertebral soft tissues, johann anto-dental interspace and craniocervical junction are within normal limits. The facet joint alignment, spinolaminar and spinous process alignments are unremarkable. The posterior paraspinal soft tissues are unremarkable. The visualized brainstem and craniocervical junction, including C1-C2, are unremarkable. The cervical spinal cord is normal in caliber, contour, configuration, and signal. DISC SPACES: Generalized moderate to severe degenerative changes. C2-C3: Normal throughout with minor spondylotic changes. C3-C4: Severe degenerative disc desiccation with spondylotic disc bulge and early facet arthropathy. No stenosis. Mild facet arthropathy. C4-C5: Severe degenerative disc desiccation with a broad-based but shallow central disc protrusion slightly greater to the left not resulting in significant lateral recess or foraminal or canal stenosis . There is only mild central canal narrowing or early stenosis. Facet arthropathy. C5-C6: There are degenerative disc desiccation with osteophytic ridging of the vertebral body endplates due to uncovertebral hypertrophy worse anteriorly than laterally with early facet arthropathy. Ove rall mild early canal stenosis but no tight stenosis or nerve root compromise. C6-C7: Severe degenerative disc desiccation with marked narrowing of the disc space but only minor secondary changes of spondylosis. No canal or recess or foraminal stenosis. Minimal, if any, changes of facet arthropathy. C7-T1 and the included upper cervical levels: The discs are normal.. There is no central or foraminal stenosis. The facet joints are unremarkable. IMPRESSION: Moderate to severe degenerative changes of the cervical spine primarily at C3 -C4 through C6-C7 with mild early central canal stenosis at C4-C5 and C5-C6 without significant compression of the thecal sac or nerve root involvement. Overall, no real change since CT of 02/17/2015 SL: [id number] Spine lumbar wo contrast Clinical Indication: Gait abnormalities 07/29/2016 [facility] MRI Comparison: None TECHNIQUE: Multiplanar T1, T2, STIR weighted noncontrast MRI of the lumbar spine is performed on the 1.5 Elli magnet. FINDINGS: ALIGNMENT AND GENERAL ASSESSMENT: The conus medullaris is normally positioned and there is no intrathecal mass. There is no osseous metastatic disease or compression fracture deformity of the visualized thoracolumbar vertebrae. There is straightening of the normal lumbar lordosis. There is a mid pole right renal cyst of 1.8 cm and a left cyst of 1.5 cm. The abdominal aorta is partially visualized and there is a aneurysm, with circumferential atheromatous plaquing and thrombus. An intravascular stent may be present. The partially visualized sacroiliac joints are intact. DISC SPACES: T12-L1: Disc spaces desiccated and there is a 1 mm central protrusion and annular fissure. L1-L2: There is no significant disc bulge, protrusion, or degenerative change and no spinal or foraminal stenosis. L2-L3: There is a minute central Schmorl's node. L3-L4: There is a minute Schmorl's node the inferior endplate. L4-L5: The disc space is desiccated and narrowed and there is a 4 mm retrolisthesis and bulge of the annulus along with lateral spondylosis. There is minimal distraction of the facet joints with fluid w ithin the joint capsule. There is minimal to moderate proximal left and minimal right foraminal stenosis. There is an anterior Schmorl's node with Modic 2 signal alteration. L5-S1: The disc space is minimally desiccated and narrowed and there is a 2 to 3 mm retrolisthesis and bulging annulus. There is minimal distal right lateral spondylosis and right L5 foraminal stenosis. There is no central or S1 lateral recess stenosis. IMPRESSION: L4-L5: The disc space is desiccated and narrowed and there is a 4 mm retrolisthesis and bulge of the annulus along with lateral spondylosis. There is minimal distraction of the facet joints with fluid w ithin the joint capsule. There is minimal to moderate proximal left and minimal right foraminal stenosis. There is an anterior Schmorl's node with Modic 2 signal alteration. L5-S1: The disc space is minimally desiccated and narrowed and there is a 2 to 3 mm retrolisthesis and bulging annulus. There is minimal distal right lateral spondylosis and right L5 foraminal stenosis. There is no central or S1 lateral recess stenosis. 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 SL: [id number]- Carotid artery Doppler 07/28/2016 [facility] [place] Clinical Indication: Stroke, ischemic; Comparison: None TECHNIQUE: Dickens-scale, color Doppler and spectral Doppler of the carotid arteries was performed. Any reported ICA stenoses indirectly reference the distal internal carotid diameter as the denominator for the sten osis measurement, utilizing consensus panel criteria. FINDINGS: RIGHT: Moderate atheromatous plaque ICA PSV 138 cm/sec CCA PSV 84 cm/sec ICA/CCA ratio 1.64 Vertebral flow is antegrade. External carotid artery is patent. LEFT: Moderate atheromatous plaque ICA PSV 90 cm/sec CCA PSV 113 cm/sec ICA/CCA ratio 0.79 Vertebral flow is antegrade. External carotid artery is patent. IMPRESSION: 1. RIGHT: ICA stenosis 50-69 % by velocity criteria. 2. LEFT: ICA stenosis <50 % by velocity criteria. Consensus panel Doppler US criteria for diagnosis of ICA stenosis: Stenosis (%) ICA PSV (cm/sec) ICA/CCA ratio - <50 <125 <2.0 50-69 125-230 2.0-4.0 >70 but less than >230 >4.0 near occlusion Near occlusion High, low, or Variable undetectable SL: [id number] Brain w/wo contrast MRI Patient Name: ELIDIA ERNANDEZ 07/28/2016 [facility] : 1945; Age: 71 years y/o Male MR: [id number] Study: Brain w/wo contrast MRI 07/28/2016 1:29 AM 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 Ordering Physician: Sofi Rapp MD Clinical Indication: Weakness; lower extremity weakness bilaterally Comparison: CT obtained yesterday. TECHNIQUE: Multiplanar pre- and post-gadolinium contrast-enhanced MRI of the brain is performed on a 1.5 Elli magnet. Contrast: 16 cc of gadolinium was administered. FINDINGS: BRAIN PARENCHYMA: The brain parenchyma has normal signal with normal dickens- white junction, sulci, and gyri. There is no mass effect or midline shift. There is no extra-axial fluid collection or intrapare nchymal hemorrhage. The corpus callosum appears normal. The white matter, basal ganglia, and posterior fossa, including the brainstem, demonstrate generally mild chronic small vessel changes predominant ly in the white matter and the david. There is no diffusion weighted imaging or ADC map abnormality to suggest acute/subacute ischemia. There is no magnetic susceptibility to suggest recent or remote int racranial hemorrhage. There is no abnormal contrast enhancement. CEREBELLOPONTINE REGIONS AND SKULL BASE: The cerebellopontine angles appear unremarkable. The skull base, craniocervical junction, and brainstem are normal. The optic chiasm is normal. The sellar and pineal regions are unremarkable. VENTRICLES: CSF spaces are prominent over the cerebral hemispheres due to cortical atrophy moderate in severity. The lateral ventricles, third and fourth ventricles appear unremarkable. The basilar cisterns are normal. VISUALIZED VESSELS: The venous sinuses are grossly unremarkable. The expected intracranial flow voids present. ORBITS, MASTOIDS AND PARANASAL SINUSES: The visualized orbits are unremarkable. The paranasal sinuses are unremarkable. The mastoid air cells demonstrate fluid retention worse on the right but otherwise are clear. IMPRESSION: Moderate cortical atrophy and mild chronic small vessel changes in otherwise unremarkable MR brain before and after contrast. Fluid retention in the mastoids greater to the right. SL: [id number] Chest 1view DX Clinical Indication: Dizziness 07/27/2016 [facility] Comparison: 02/17/2015 and 07/05/2010 FINDINGS: An AP view of the chest is submitted for interpretation. Relatively stable-appearing 2 cm right basilar lung nodule, grossly unchanged since 2009. Lungs otherwise clear Heart size is normal. Central pulmonary vasculature appears normal. No effusion. No pneumothorax. Osseous structures demonstrate no acute abnormality. IMPRESSION: 1. No radiographically apparent acute cardiopulmonary process. 2. Stable right lower basilar 2 cm nodule. SL: [id number] Brain wo contrast CT Patient Name: ELIDIA ERNANDEZ 07/27/2016 [facility] : 1945; Age: 71 years y/o Male MR: [id number] Study: Brain wo contrast CT 07/27/2016 9:54 PM 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 Ordering Physician: Jun Siddiqui DO Clinical Indication: Bilateral leg weakness; Comparison: 02/17/2015 TECHNIQUE: CT images were obtained from the foramen magnum to the vertex without the use of intravenous contrast on a multidetector CT. Coronal and sagittal reconstructions were obtained. CT radiation dose DLP: 1103.89 mGy FINDINGS: BRAIN PARENCHYMA: There are normal dickens-white corticomedullary interfaces, sulci and gyri. There are no focal mass lesions or fluid collections on this noncontrast head CT. There is no mass effect, midl ine shift or edema. There are no intra-axial or extra-axial fluid collections , intraventricular or intraparenchymal hemorrhage. The pineal, sellar, brainstem , cerebellum and skull base regions appear unremarkable. The white matter, basal ganglia, and posterior cranial fossa including the brainstem demonstrate probable mild chronic small vessel changes without change since 02/17/2015. VENTRICLES: CSF spaces are atrophic with wide subarachnoid spaces over the cerebral convexities also known as atrophy and ex vacuo. The lateral ventricles , third and fourth ventricles appear unremarkable. The basilar cisterns are normal. ORBITS, MASTOIDS AND PARANASAL SINUSES: The visualized orbits are unremarkable. The paranasal sinuses are unremarkable. Incidental left middle turbinate ale bullosa deviating the nasal septum to the right. The mastoid air cells are clear. SKULL: There are no osseous abnormalities. Intracranial atherosclerotic vascular calcification. IMPRESSION: Unremarkable stable noncontrast head CT with no trauma, mass, hemorrhage or subacute stroke. SL: WR3-M Ext Lower Arterial NAME: ELIDIA ERNANDEZ 09/15/2015 [facility] Outpatient Doppler bilat US : 1945 SEX: M Imaging [facility] Ordering Physician: Farhad Rodriguez lower-romain art Dopp w/o press : Sep 15, 2015 01:08:00 PM. CLINICAL INDICATION: Bilateral leg blisters for 2 months. 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 Comparison Examination: None. FINDINGS: Bilateral lower extremity arterial Doppler evaluation without pressures was performed with dickens scale, color scale and Doppler waveforms evaluation. There are normal triphasic waveforms and peak systolic velocities of the visualized right external iliac artery. Elevated peak systolic velocities of the right common femoral artery are noted of 186 cm/ sec. This may represent an area of focal stenosis. Elevated peak systolic velocities and spectral broadening is seen in the right superficial femoral artery with peak velocity of 214 cm/sec. This is sug gestive of an area of moderate stenosis in this region. Biphasic right popliteal artery waveforms are seen with mild to moderately decreased peak systolic velocities of 52 cm/sec. Biphasic right posteri or tibial artery waveforms are seen with mild to moderately decreased peak systolic velocities of 52 cm/sec. Biphasic right anterior tibial artery waveforms are seen with normal peak systolic velocities of 82.3 cm/sec. Biphasic right dorsalis pedis artery waveforms are seen with spectral broadening with normal peak systolic velocities of 72 cm/sec. There are normal triphasic waveforms and peak systolic velocities of the visualized left external iliac artery. Elevated peak systolic velocities of the left common femoral artery are noted of 182 cm/se c. This may represent an area of focal stenosis. Biphasic left superficial femoral artery waveforms are seen with peak velocity of 104 cm/sec. Biphasic left popliteal artery waveforms are seen with mild to moderately decreased peak systolic velocities of 59 cm/sec. Biphasic left posterior tibial artery waveforms are seen with severely decreased peak systolic velocities of 23 cm/sec. Biphasic left ante rior tibial artery waveforms are seen with spectral broadening with peak systolic velocities of 77.9 cm/sec. Biphasic left dorsalis pedis artery waveforms are seen with spectral broadening with peak systolic velocities of 62 cm/sec. Assessment is otherwise limited. Recommend conventional angiography, CT angiography or magnetic resonance angiography for evaluation. IMPRESSION: 1. Bilateral lower extremity arterial occlusive disease, as noted above. SL: 24 Foot series DX Name: ELIDIA ERNANDEZ 09/15/2015 [facility] Outpatient Imaging [place] : 1945 SEX: M Ordering Physician: Farhad Rodriguez Foot series : Sep 15, 2015 12:18:00 PM. CLINICAL INDICATION: M79.671 Pain in right foot; L97.512 Non-pressure chronic ulcer of other part of right foot with fat layer exposed; E11.51 Type 2 diabetes mellitus with diabetic peripheral angiopathy without gangrene Comparison Examination: None FINDINGS: AP, lateral and oblique views of the foot are obtained. There is no acute fracture or dislocation. There are suspected subtle lucencies about the first tarsometatarsal joints. This may represent patchy osteopenia or osteomyelitis/septic arthritis. Please cor relate with the site of soft tissue ulceration. The rest of the bones are unremarkable. Small plantar calcaneal spur is present. Moderate vascular calcifications are present. If there is further concern, recommend follow-up radiographs or bone scan for complete assessment. IMPRESSION: Suspected subtle lucencies about the first tarsometatarsal joint. Question patchy osteopenia and/or osteomyelitis/ septic arthritis. Please correlate with the site of soft tissue ulceration. Further ass essment with an MRI to be considered as indicated. SL: 57 Chest 1view DX NAME: ELIDIA ERNANDEZ 02/17/2015 [facility] : 1945 SEX: M Ordering Physician: Angel Gold Chest 1view : Feb 17, 2015 07:44:00 PM. CLINICAL INDICATION: Central Line Placement / Chest 1 view for central line placement COMPARISON: Chest x-ray dated 02/17/2015. FINDINGS: Single frontal view of the chest is submitted for interpretation. There is a left-sided subclavian-approach central venous catheter with the tip located in the region of the SVC, pointing laterally to the right. There is unchanged appearance of a 2.0 x 1.6 cm nodular opacity in the right lung base. No new confluent interstitial opacities are seen and there are no effusions. There is no visible pneumothorax. Cardiomediastinal contours are stable. Bony structures appear unremarkable. IMPRESSION: 1. Interval placement of a left subclavian approach central venous catheter. 2. Stable appearance of a 2 cm nodular opacity in the right lung base. SL: 24 Chest 1view DX Name: ELIDIA ERNANDEZ 02/17/2015 [facility] : 1945 SEX: M Ordering Physician: Jun Siddiqui Chest 1view : Feb 17, 2015 10:44:00 AM. CLINICAL INDICATION: Syncope Comparison Examination: June 08, 2014 FINDINGS: PA and lateral chest radiographs were performed. HEART: The cardiomediastinal contours are normal. LUNGS: There are no clinically significant osseous abnormalities noted. IMPRESSION: 1.7 cm nodule in the right lower lung, further evaluation with a CT scan without contrast may be obtained. SL: 24 Spine cervical wo Name: ELIDIA ERNANDEZ 02/17/2015 [facility] contrast CT : 1945 Ordering Physician: Jun Siddiqui Spine cervical wo contrast CT : Feb 17, 2015 10:34:00 AM. CLINICAL INDICATION: Weakness REASON FOR EXAM: See Clinic Indication, fell on floor, seizure Comparison Examination: None. TECHNIQUE: Multi-detector CT imaging of the cervical spine was performed. Coronal and sagittal reconstructions were obtained. Total DWZ=894 mGy/cm FINDINGS: The cervical vertebral bodies demonstrate no evidence of acute fracture or acute mal-alignment. There mild to moderate degenerative disc changes present at C3-C4 through C6-C7. There are duncan re right and mild/moderate left facet degenerative changes at C2-C3 and C3- C4. The prevertebral soft tissues are within normal limits. Moderate atherosclerotic calcifications are noted to the bilateral carotid bulb regions. Both carotid bulbs or in a retropharyngeal location. The visualized lung apices are clear. MRI of the cervical spine may be performed if there is further concern. IMPRESSION: 1. No CT evidence of acute traumatic injury to the cervical spine. SL: [address] NAME: ELIDIA ERNANDEZ 02/17/2015 [facility] : 1945 SEX: M Ordering Physician: Jun Siddiqui Brain wo contrast CT : Feb 17, 2015 10:34:00 AM. CLINICAL INDICATION: Seizures / See Clinic Indication Comparison Examination: 07/05/2010. TECHNIQUE: Axial CT images were obtained from the foramen magnum to the vertex without administration of intravenous contrast. Coronal and sagittal reconstructions were obtained. Total EAK=0193.65 mGy/cm FINDINGS: There is generalized brain parenchymal atrophy related to the patient's age. Scattered foci of decreased attenuation in the subcortical and periventricular white matter is nonspecific but likely secondary to chronic microvascular ischemic disease. There is no mass effect, midline shift or edema. There are no intra-axial fluid collections or evidence for acute intraventricular or intraparenchymal hemorrhage. Stable asymmetric prominence of the bif rontal and high parietal extra-axial spaces suggesting preferential volume loss, less likely chronic subdural hygromas. No hydrocephalus. There is no CT evidence of stroke. If there is continued concern, MRI should be performed for further assessment. There are no skull fractures noted. Partially opacified right mastoid air cells. No acute imaging abnormality of the orbits or paranasal sinuses. IMPRESSION: Partially opacified right mastoid air cells. Correlate clinically for mastoiditis. Otherwise stable CT appearance of the brain as above. SL: 24 Consultation Notes No Data Provided for This Section Discharge Summaries No Data Provided for This Section History and Physicals No Data Provided for This Section Vital Signs Vital Sign Value Date Comments Source Respitory Rate 18 06/10/2017 [facility] Systolic (mm Hg) 127 06/10/2017 [facility] Diastolic (mm Hg) 65 06/10/2017 [facility] Temperature Oral (F) 98.2 F 06/10/2017 [facility] Heart Rate 64 06/10/2017 [facility] Systolic (mm Hg) 122 06/10/2017 [facility] Diastolic (mm Hg) 70 06/10/2017 [facility] Respitory Rate 18 06/10/2017 [facility] Heart Rate 51 06/10/2017 [facility] Temperature Oral (F) 98.3 F 06/10/2017 [facility] Heart Rate 64 06/10/2017 [facility] Temperature Oral (F) 98.2 F 06/10/2017 [facility] Respitory Rate 18 06/10/2017 [facility] Systolic (mm Hg) 138 06/10/2017 [facility] Diastolic (mm Hg) 72 06/10/2017 [facility] BMI Calculated 34.52 2017 [facility] Weight 118.682 2017 [facility] Height 185.42 cm 2017 [facility] BMI Calculated 34.51 2017 [facility] Weight 118.636 2017 [facility] Height 185.42 cm 2017 [facility] BMI Calculated 31.86 2017 [facility] Height 185.42 cm 2017 [facility] Weight 109.545 2017 [facility] Heart Rate 60 07/30/2016 [facility] Respitory Rate 18 07/30/2016 [facility] Systolic (mm Hg) 149 07/30/2016 [facility] Diastolic (mm Hg) 75 07/30/2016 [facility] Temperature Oral (F) 97.5 F 07/30/2016 [facility] Systolic (mm Hg) 154 07/30/2016 [facility] Diastolic (mm Hg) 73 07/30/2016 [facility] Heart Rate 60 07/30/2016 [facility] Respitory Rate 18 07/30/2016 [facility] Temperature Oral (F) 97.5 F 07/30/2016 [facility] Respitory Rate 16 07/30/2016 [facility] Temperature Oral (F) 98.1 F 07/30/2016 [facility] Heart Rate 50 07/30/2016 [facility] Systolic (mm Hg) 111 07/30/2016 [facility] Diastolic (mm Hg) 66 07/30/2016 [facility] Weight 109.545 07/28/2016 [facility] Weight 107.898 07/28/2016 [facility] Height 182.88 cm 07/28/2016 [facility] BMI Calculated 32.26 07/28/2016 [facility] Weight 97.273 07/28/2016 [facility] BMI Calculated 29.91 07/28/2016 [facility] Height 180.34 cm 07/28/2016 [facility] Respitory Rate 12 05/30/2016 [facility] Systolic (mm Hg) 157 05/30/2016 [facility] Diastolic (mm Hg) 68 05/30/2016 [facility] Temperature Oral (F) 98.6 F 05/30/2016 [facility] Respitory Rate 14 05/30/2016 [facility] Systolic (mm Hg) 161 05/30/2016 [facility] Diastolic (mm Hg) 67 05/30/2016 [facility] Respitory Rate 12 05/30/2016 [facility] Systolic (mm Hg) 152 05/30/2016 [facility] Diastolic (mm Hg) 66 05/30/2016 [facility] Heart Rate 52 05/30/2016 [facility] BMI Calculated 29.22 05/30/2016 [facility] Weight 97.727 05/30/2016 [facility] Heart Rate 56 05/30/2016 [facility] Height 182.88 cm 05/30/2016 [facility] Temperature Oral (F) 98.7 F 05/30/2016 [facility] Systolic (mm Hg) 156 02/19/2015 [facility] Diastolic (mm Hg) 68 02/19/2015 [facility] Respitory Rate 16 02/19/2015 [facility] Systolic (mm Hg) 157 02/19/2015 [facility] Diastolic (mm Hg) 68 02/19/2015 [facility] Respitory Rate 17 02/19/2015 [facility] Respitory Rate 18 02/19/2015 [facility] Systolic (mm Hg) 140 02/19/2015 [facility] Diastolic (mm Hg) 67 02/19/2015 [facility] Temperature Oral (F) 97.7 F 02/18/2015 [facility] Temperature Oral (F) 98.6 F 02/18/2015 [facility] Weight 119 02/18/2015 [facility] Temperature Oral (F) 98.5 F 02/18/2015 [facility] Heart Rate 68 02/17/2015 [facility] Height 185.42 cm 02/17/2015 [facility] Weight 120 02/17/2015 [facility] BMI Calculated 34.9 02/17/2015 [facility] Heart Rate 77 02/17/2015 [facility] Heart Rate 70 02/17/2015 [facility] Weight 127.273 02/17/2015 [facility] BMI Calculated 37.02 02/17/2015 [facility] Height 185.42 cm 02/17/2015 [facility] Diastolic (mm Hg) 78 06/11/2014 [facility] Systolic (mm Hg) 161 06/11/2014 [facility] Respitory Rate 18 06/11/2014 [facility] Heart Rate 83 06/11/2014 [facility] Temperature Oral (F) 97.4 F 06/11/2014 [facility] Respitory Rate 12 06/11/2014 [facility] Heart Rate 70 06/11/2014 [facility] Temperature Oral (F) 98.5 F 06/11/2014 [facility] Systolic (mm Hg) 153 06/11/2014 [facility] Diastolic (mm Hg) 81 06/11/2014 [facility] Respitory Rate 20 06/11/2014 [facility] Systolic (mm Hg) 114 06/11/2014 [facility] Diastolic (mm Hg) 61 06/11/2014 [facility] Temperature Oral (F) 98.4 F 06/11/2014 [facility] Heart Rate 67 06/11/2014 [facility] BMI Calculated 32.3 06/09/2014 [facility] Weight 111.051 06/09/2014 [facility] Height 185.42 cm 06/09/2014 [facility] Height 185.42 cm 06/09/2014 [facility] Weight 110.966 06/09/2014 [facility] BMI Calculated 32.28 06/09/2014 [facility] Encounters Location Location Encounter Encounter Reason Attending ADM DC Status Source Details Type Number For Provider Date Date Visit [facility] [id number] Negro 06/08 06/11 Gómez Chacko /2013 [facility] Inpatient [id number] Dc Maradiaga 02/17 02/19 Gómez /2014 [facility] Wound Care [id number] Farhad 09/11 10/11 LIZ Rodriguez III /2015 [facility] Outpt Diag [id number] Farhad 09/15 09/16 [facility] Outpatient Services Jennifer III Outpatien Imaging t Imaging [facility] Care [id number] Farhad 10/24 11/22 Gómez Rodriguez III [facility] Wound Care [id number] Farhad 12/11 01/10 Gómez Rodriguez III [facility] Wound Care [id number] Farhad 02/05 03/07 Horatiodeepa Rodriguez III [facility] Wound Care [id number] Farhad 05/07 06/06 Gómez Rodriguez III [facility] [id number] Ant 05/30 05/30 Gómez Tracy /2015 [facility] Inpatient [id number] Mohammad 07/28 07/30 Gómez Rapp [facility] Care [id number] [facility]had 10[facility]02 [facility] [id number] Farhad 12/02 01/01 Gómezdeepa Rodriguez III [facility] Inpatient [id number] Giancarlo 05/23 [facility] Procedures Procedure Code Date Perfomer Comments Source Aortic aneurysm [id number] [facility] repair Assessment and Plan Assessment and Plan Date Source Extracted from:Title: IM Note 06/10/2017 [facility] Author: Giancarlo Murphy MD Date: 06/10/17 Impression and Plan course in the hospital: ABD PAIN secondary to ACUTE CHOLECYSTITIS...evaluated by surgery...poor surgical candidate...iv antibiotics...was considered for cholecystostomy but improved. pain resolved. tolerated diet. id recommend to continue antibiotics. 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 COPD advise need PFT to better understand degree of copd in outpt. ACUTE ON CHRONIC RESPIRATORY FAILURE...resolved , on low flow o2 on dc. SCHIZOPHRENIA, ANEMIA, SEIZURE disorder,CKD3 stable, FAVIO from [facility] resolved. still weak despite medically improved. recommend snf/rehab before going home. accepted by [facility]. Extracted from:Title: Infectious disease Progress Note * Author: Chalino Ross DO Date: 06/10/17 Impression and Plan Impression and Plan The patient was seen and examined by me with the resident/GLASSWARE DEFECT REPAIRER/PA and I agree with the History/Exam documented. 1. Cholecystitis on iv doing well stop coy error previoulsy should 15 not 25 us guideded iv 2. Leukocytosis resolved 3 Resp failure chronic Recommend cont zosyn/diflucan stop date 15 previous error Extracted from:Title: Progress Note Complex * 07/30/2016 [facility] Author: Elton Ugalde MD Date: 07/29/16 Impression and Plan B/L LE WEAKNESS HX ANXIETY HX DEPRESION COPD CONTINUE PT NEUROLOGY EVAL SNF EVAL CONTINUE RX Extracted from:Title: Progress Note *neuro 02/19/2015 [facility] Author: Miriam Mann MD Date: 02/18/15 Impression and Plan New onset seizures: likely due to severe hyponatremia. Agree with current management. EEG and MRI brain to look for other etiology are pending Severe hyponatremia: resolving Metabolic encephalopathy: resolved - Will follow. Extracted from:Title: Pulm f/u 06/11/2014 [facility] Author: Tamika Beltran MD Date: 06/11/14 Impression and Plan 1. Acute on chronic hypoxic hypercarbic respiratory failure 2. Chronic obstructive pulmonary disease exacerbation secondary to acute bronchitis. 3. Hypertension. 4. Bipolar disease. 5. Obesity. Much improved OK to DC home from pulm standpoit Medrol + PO Abx Thx! Plan of Care No Data Provided for This Section Social History Social History Date Source Social History TypeResponse 05/30/2016 [facility] Substance Abuse Use: None. Alcohol Past Smoking Status Current some day smoker; Type: Chewing tobacco; Number of years: 55; Stopped at age: 62; Lives with someone who smokes; Cigarette Smoking Last 365 Days Yes; Reg Smoking Cessation Counseling Yes Social History TypeResponse 02/17/2015 [facility] Outpatient Imaging Substance Abuse [place] Use: None. Alcohol Past Smoking Status Heavy tobacco smoker; Type: Cigarettes; Number of years: 55; Stopped at age: 62 ; Lives with someone who smokes; Cigarette Smoking Last 365 Days Yes; Reg Smoking Cessation Counseling Yes Family History No Data Provided for This Section Advance Directives No Data Provided for This Section Functional Status No Data Provided for This Section
--- OUTSIDE RECORDS SUMMARY | 2019-03-12 14:52 | XMS REPORT ---
:1945 Author Organization [employer] Care Team Providers Name Role Phone Alfredito Sims Provider Role Unavailable Allergies No Known Allergies Problems Problem Type Condition Code Onset Dates Condition Status Problem Type 2 diabetes mellitus without E11.9 Active complication, unspecified whether moth exterminator insulin use Problem Congestive heart failure, I50.9 Active unspecified HF chronicity, unspecified heart failure type Problem Essential (primary) hypertension I10 Active Problem Depression with anxiety F41.8 Active Problem Acquired hypothyroidism E03.9 Active Problem Bipolar 1 disorder, depressed, full F31.76 Active remission Problem Hyperlipidemia, unspecified E78.5 Active hyperlipidemia type Problem Seasonal allergies J30.2 Active Problem Chronic obstructive pulmonary J44.9 Active disease, unspecified COPD type Medications Medication Code Code Instructions Start End Status Dosage System Date Date Venlafaxine HCl [facility] [id number] MG Orally Active 1 capsule ER Once a day with food Results No Known Results Summary Purpose [employer] Block Submission
--- OUTSIDE RECORDS SUMMARY | 2019-03-12 14:52 | XMS REPORT ---
:1945 [facility] Team Providers Name Role Phone Alfredito Sims Provider Role Unavailable Allergies No Known Allergies Problems Problem Type Condition Code Onset Dates Condition Status Problem Type 2 diabetes mellitus without E11.9 Active complication, unspecified whether senior care insulin use Problem Congestive heart failure, I50.9 Active unspecified HF chronicity, unspecified heart failure type Problem Essential (primary) hypertension I10 Active Problem Depression with anxiety F41.8 Active Problem Acquired hypothyroidism E03.9 Active Problem Bipolar 1 disorder, depressed, full F31.76 Active remission Problem Hyperlipidemia, unspecified E78.5 Active hyperlipidemia type Problem Seasonal allergies J30.2 Active Problem Chronic obstructive pulmonary J44.9 Active disease, unspecified COPD type Assessment Type 2 diabetes mellitus without E11.9 Active complication, unspecified whether terminal clerk insulin use Assessment Essential (primary) hypertension I10 Active Assessment Hyperlipidemia, unspecified E78.5 Active hyperlipidemia type Assessment Respiratory tract infection J98.8 Active Assessment Congestive heart failure, I50.9 Active unspecified HF chronicity, unspecified heart failure type Medications Medication Code Code Instructions Start End Status Dosage System Date Date Lisinopril [facility] 65176525198 20 MG Orally Active 1 tablet Once a day Metoprolol [facility] 20468093233 25 Oral every Active TK 1 T PO Q Tartrate 12 hrs 8 H. Venlafaxine HCl ER [facility] 65638645489 75 MG Orally Active 1 capsule Once a day with food Metoprolol [facility] 76066045847 25 MG Oral Active TK 1 T PO Q Tartrate every 12 hrs 8 H. Brimonidine [facility] 40571469435 0.15 % Active 1 drop into Tartrate Ophthalmic affected eye Twice a day Vitamin C [facility] 88998497042 500 MG Orally Active 2 tablets Once a day Cholecalciferol [facility] [address]-76 1000 UNIT Active 2 capsules Orally Once a day Baclofen ND 58613324067 10 MG Oral Active TK 1 T PO Q 8 H PRN. Venlafaxine HCl ER [facility] 46124001010 75 Orally Once Active 1 capsule a day with food Betaxolol HCl ND 09319379549 0.5 % Active 1 drop into Ophthalmic affected eye Twice a day Ipratropium-Albute [facility] [address]-32 20-100 MCG/ACT Active 1 puff rol Inhalation Four times a day Docusate Sodium ND 86565968472 100 MG Orally Active 2 capsule as Twice a day needed Multivitamin & ND 89284124462 - Orally Active as directed Mineral Albuterol Sulfate ND 11190456062 (2.5 MG/3ML) Aug 18, Active 3 ml as 0.083% 2017 needed Inhalation Three times a day Risperidone ND 48653194012 0.25 MG Oral Active TK 3 TS PO D. BD Pen Needle Disah [facility] 09963245389 32G X 4 MM Active INJECT USING U/F INSULIN D. Divalproex Sodium ND 26248023982 500 MG Oral Active TK 1 T PO ER QHS. Amiodarone HCl [facility] 58021552366 200 MG Orally Active 1 tablet Once a day Levothyroxine ND 91871667205 75 MCG Orally Active 1 tablet on Sodium Once a day an empty stomach in the morning Glucometer test ND 0 n/s twice a Aug 28, Active one strip strips 2017 using the [employer] Metric glucometer Aspirin ND 41192965906 81 MG Orally Active 1 tablet Once a day Tresiba FlexTouch ND 23398299989 100 UNIT/ML Active 70 units Subcutaneous daily Divalproex Sodium ND 52731836516 500 MG Orally Sep 16, Active as directed ER 1 PO QPM 2018 Spiriva HandiHaler [facility] 40792691975 18 MCG Zuleyka Active 1 capsule Inhalation 16, Once a day 2018 Clonidine HCl ND 97731732853 0.1 MG Orally Active 1 tablet Twice a day Loperamide HCl ND 60976717458 2 MG Oral Active TK 2 CS PO Q 6 H PRN. BusPIRone HCl ND 17402158286 10 MG Oral Active 1 tablet Three times a day Amlodipine ND 92775596776 5 MG Orally Active 1 tablet Besylate Once a day Latanoprost ND 80066065864 0.005 % Active INT 1 GTT IN Ophthalmic OU QHS. Symbicort ND 47403798699 160-4.5 Active inhale 2 MCG/ACT puffs po Inhalation bid. Twice a day Atorvastatin [facility] 22539650229 10 MG Orally Active 1 tablet Calcium Once a day at bedtime Januvia [facility] 95619508256 100 MG Orally Active 1 tablet Once a day Fenofibrate [facility] 31921969916 200 MG Orally Active 1 capsule Once a day with a meal Trazodone HCl [facility] 59657129994 50 MG Oral Active TK 1 T PO QHS. Furosemide [facility] 91430128970 20 MG Oral Active TK 1 T PO QD. [place] 3 [facility] 00669952100 1000 MG Orally Active 1 capsule Once a day Results No Known Results Summary Purpose eClinicalWorks Submission
--- OUTSIDE RECORDS SUMMARY | 2019-03-12 14:52 | XMS REPORT ---
:1945 Author Organization eClinicalWorks Care Team Providers Name Role Phone Alfredito Sims Provider Role Unavailable Allergies No Known Allergies Problems Problem Type Condition Code Onset Dates Condition Status Problem Type 2 diabetes mellitus without E11.9 Active complication, unspecified whether higher education administrator insulin use Problem Congestive heart failure, I50.9 [...] Start End Status Dosage System Date Date Divalproex [facility] 13358746290 500 MG Orally Sep 16, Active as directed Sodium ER PO QPM 2018 Metoprolol ND 98450550242 25 MG Oral Active TK 1 T PO Q Tartrate every 12 hrs 8 H. Amlodipine ND 80700434052 5 MG Orally Active 1 tablet Besylate Once a day Risperidone ND 97066430117 0.25 MG Oral Active TK 3 TS PO D. Results No Known Results Summary Purpose [employer] Submission
--- OUTSIDE RECORDS SUMMARY | 2019-03-12 14:53 | XMS REPORT ---
:1945 [facility] Providers Name Role Phone Alfredito Sims Provider Role Unavailable Allergies, Adverse Reactions, Alerts Substance Reaction Event Type codeine Info Not Available Drug Allergy Problems Problem Type Condition Code Onset Dates Condition Status Problem Type 2 diabetes mellitus without E11.9 Active complication, unspecified whether [facility] insulin use Problem Congestive heart failure, I50.9 Active unspecified HF chronicity, unspecified heart failure type Assessment Inadequate sleep hygiene Z72.821 Active Assessment Precancerous skin lesion L98.9 Active Problem Essential (primary) hypertension I10 Active Problem Depression with anxiety F41.8 Active Problem Acquired hypothyroidism E03.9 Active Problem Bipolar 1 disorder, depressed, full F31.76 Active remission Problem Hyperlipidemia, unspecified E78.5 Active hyperlipidemia type Problem Seasonal allergies J30.2 Active Problem Chronic obstructive pulmonary J44.9 Active disease, unspecified COPD type Medications Medication Code Code Instructions Start End Status Dosage System Date Date Divalproex ND 70268462410 500 MG Orally Sep 16, Active as directed Sodium ER 1 PO QPM 2018 [facility] 30643354046 100 MG Orally Active 1 tablet Once a day Glucometer test ND 0 n/s twice a Aug 28, Active one strip strips 2017 using the imbookin ([employer]) Metric glucometer Atorvastatin [facility] 73489860871 10 MG Orally Active 1 tablet Calcium Once a day at bedtime Amlodipine ND 74917411990 5 Orally Once Active 1 tablet Besylate a day Docusate Sodium ND 35645649265 100 MG Orally Active 2 capsule as Twice a day needed Atorvastatin ND 97873418442 10 Orally Once Active 1 tablet Calcium a day at bedtime Risperidone ND 84064693013 0.25 MG Oral Active TK 3 TS PO D. BusPIRone HCl ND 93875767221 10 MG Oral Active 1 tablet Three times a day Venlafaxine HCl ND 22980529713 75 MG Orally Active 1 capsule ER Once a day with food Levothyroxine ND 97640789085 75 MCG Orally Active 1 tablet on Sodium Once a day an empty stomach in the morning Tresiba [facility] 13825619146 100 UNIT/ML Active 70 units FlexTouch Subcutaneous daily Clonidine HCl [facility] 30434489185 0.1 Orally Active 1 tablet Twice a day Baclofen [facility] 85445364837 10 MG Oral Active TK 1 T PO Q 8 H PRN. Fenofibrate [facility] 55604743344 200 MG Orally Active 1 capsule Once a day with a meal Amlodipine [facility] 63129858498 5 MG Orally Active 1 tablet Besylate Once a day Clonidine HCl [facility] 11331785982 0.1 MG Orally Active 1 tablet Twice a day Vitamin C [facility] [address] 500 MG Orally Active 1 tablet Once a day Latanoprost [facility] 11327279838 0.005 % Active INT 1 GTT IN Ophthalmic OU QHS. Trazodone HCl [facility] 71750618535 50 MG Oral Active TK 1 T PO QHS. Symbicort [facility] 57273479517 160-4.5 Active inhale 2 MCG/ACT puffs po Inhalation bid. Twice a day Amiodarone HCl [facility] 24085739391 200 MG Orally Active 1 tablet Once a day Divalproex [facility] 86295969609 500 MG Oral Active TK 1 T PO Sodium ER QHS. Ipratropium-Albu [facility] [address]-86 20-100 MCG/ACT Active 1 puff terol Inhalation Four times a day Metoprolol [facility] 92819579299 25 Active TAKE 1 Tartrate TABLET BY MOUTH EVERY 8 HOURS BD Pen Needle [facility] 36685728308 32G X 4 MM Active INJECT USING Disha U/F INSULIN D. Multivitamin & [facility] 30435918865 - Orally Active as directed Mineral Lisinopril [facility] [address]-43 20 MG Orally Active 1 tablet Once a day Betaxolol HCl [facility] 23540374301 0.5 % Active 1 drop into Ophthalmic affected eye Twice a day Aspirin [facility] 18696446370 81 MG Orally Active 1 tablet Once a day Divalproex [facility] 57669988021 500 Orally 1 Active as directed Sodium ER PO QPM Albuterol [facility] 65250775087 (2.5 MG/3ML) Dec 18, Active 3 ml as Sulfate 0.083% 2018 needed Inhalation Three times a day Furosemide [facility] 32156378583 20 MG Oral Active 1 tablet Once a day Januvia [facility] 62365399208 100 Orally Active 1 tablet Once a day Results No Known Results Summary Purpose eClinicalWorks Submission
--- OUTSIDE RECORDS SUMMARY | 2019-03-12 14:53 | XMS REPORT ---
:1945 [facility] Team Providers Name Role Phone Alfredito Sims Provider Role Unavailable Allergies, Adverse Reactions, Alerts Substance Reaction Event Type codeine Info Not Available Drug Allergy Problems Problem Type Condition Code Onset Dates Condition Status Problem Type 2 diabetes mellitus without E11.9 Active complication, unspecified whether half-way insulin use Problem Congestive heart failure, I50.9 Active unspecified HF chronicity, unspecified heart failure type Assessment Precancerous skin lesion L98.9 Active Assessment Essential (primary) hypertension I10 Active Assessment Hyperlipidemia, unspecified E78.5 Active hyperlipidemia type Assessment Congestive heart failure, I50.9 Active unspecified [...] Start End Status Dosage System Date Date Vitamin C [facility] [address] 500 MG Orally Active 1 tablet Once a day Cholecalciferol [facility] [address]-85 1000 UNIT Active 2 capsules Orally Once a day Ipratropium-Albute [facility] [address]-91 20-100 MCG/ACT Active 1 puff rol Inhalation Four times a day Docusate Sodium ND 20967674747 100 MG Orally Active 2 capsule as Twice a day needed Divalproex Sodium ND 09778121391 500 MG Orally Sep 16, Active as directed ER 1 PO QPM 2018 Metoprolol [facility] 96117176577 25 Active TAKE 1 Tartrate TABLET BY MOUTH EVERY 8 HOURS Levothyroxine ND 80822181978 75 MCG Orally Active 1 tablet on Sodium Once a day an empty stomach in the morning Multivitamin & ND 40346844137 - Orally Active as directed Mineral [place] 3 [facility] 71534938877 1000 MG Orally Active 1 capsule Once a day Amiodarone HCl ND 58418565465 200 MG Orally Active 1 tablet Once a day Amlodipine ND 00133935603 5 MG Orally Active 1 tablet Besylate Once a day Risperidone ND 53836290254 0.25 MG Oral Active TK 3 TS PO D. Tresiba FlexTouch ND 72725651756 100 UNIT/ML Active 70 units Subcutaneous daily Furosemide ND 35829802278 20 MG Oral Active 1 tablet Once a day Loperamide HCl ND 96456341390 2 MG Oral Active TK 2 CS PO Q 6 H PRN. Symbicort [facility] 53264517935 160-4.5 Active inhale 2 MCG/ACT puffs po Inhalation bid. Twice a day Glucometer test ND 0 n/s twice a Aug 28, Active one strip strips day 2017 using the [employer] glucometer Betaxolol HCl ND 77699289789 0.5 % Active 1 drop into Ophthalmic affected eye Twice a day BD Pen Needle Disha [facility] 29980764422 32G X 4 MM Active INJECT USING U/F INSULIN D. Albuterol Sulfate ND 28879680550 (2.5 MG/3ML) Aug 18, Active 3 ml as 0.083% 2018 needed Inhalation Three times a day Brimonidine ND 93697736287 0.15 % Active 1 drop into Tartrate Ophthalmic affected eye Twice a day Aspirin ND 54850795499 81 MG Orally Active 1 tablet Once a day Trazodone HCl ND 66763111410 50 MG Oral Active TK 1 T PO QHS. Divalproex Sodium ND 09403342508 500 MG Oral Active TK 1 T PO ER QHS. Januvia [facility] 14352351618 100 MG Orally Active 1 tablet Once a day Latanoprost ND 70940365216 0.005 % Active INT 1 GTT IN Ophthalmic OU QHS. Atorvastatin [facility] 02212142054 10 MG Orally Active 1 tablet Calcium Once a day at bedtime Baclofen ND 23812423629 10 MG Oral Active TK 1 T PO Q 8 H PRN. Fenofibrate [facility] 04367697208 200 MG Orally Active 1 capsule Once a day with a meal Venlafaxine HCl ER [facility] 07147082387 75 MG Orally Active 1 capsule Once a day with food Clonidine HCl [facility] 63184111917 0.1 MG Orally Active 1 tablet Twice a day BusPIRone HCl [facility] 95363728741 10 MG Oral Active 1 tablet Three times a day Lisinopril [facility] [address]-45 20 MG Orally Active 1 tablet Once a day Results No Known Results Summary Purpose eClinicalWorks Submission
--- OUTSIDE RECORDS SUMMARY | 2019-03-12 14:53 | XMS REPORT ---
:1945 Author Organization eClinicalWorks Care Team Providers Name Role Phone Alfredito Sims Provider Role Unavailable Allergies No Known Allergies Problems Problem Type Condition Code Onset Dates Condition Status Problem Type 2 diabetes mellitus without E11.9 Active complication, unspecified whether machine long goods helper insulin use Problem Congestive heart failure, I50.9 Active unspecified HF chronicity, unspecified heart failure type Assessment Congestive heart failure, I50.9 Active [...] Start End Status Dosage System Date Date Albuterol [facility] 64622638319 (2.5 MG/3ML) Aug 18, Active 3 ml as Sulfate 0.083% 2018 needed Inhalation Three times a day Risperidone [facility] 15709934145 0.25 Oral Once a Active 3 tablets day Results No Known Results Summary Purpose eClinicalWorks Submission
--- OUTSIDE RECORDS SUMMARY | 2019-03-12 14:53 | XMS REPORT ---
:1945 [facility] Team Providers Name Role Phone Alfredito Sims Provider Role Unavailable Allergies No Known Allergies Problems Problem Type Condition Code Onset Dates Condition Status Problem Type 2 diabetes mellitus without E11.9 Active complication, unspecified whether [facility] insulin use Problem Congestive heart failure, I50.9 [...] mellitus without E11.9 Active complication, unspecified whether oysterman insulin use Assessment Hyperlipidemia, unspecified E78.5 Active hyperlipidemia type Assessment Chronic obstructive pulmonary J44.9 Active disease, unspecified COPD type Assessment Congestive heart failure, I50.9 Active unspecified HF chronicity, unspecified heart failure type Assessment Essential (primary) hypertension I10 Active Assessment URTI (acute upper respiratory J06.9 Active infection) Medications Medication Code Code Instructions Start End Status Dosage System Date Date Metoprolol ND 82747395730 25 Active TAKE 1 Tartrate TABLET BY MOUTH EVERY 8 HOURS Tresiba FlexTouch ND 52805239366 100 UNIT/ML Active 70 units Subcutaneous daily Risperidone ND 00069039535 0.25 MG Oral Active TK 3 TS PO D. Lisinopril ND 27898227369 20 MG Orally Active 1 tablet Once a day [place] 3 ND 32503553046 1000 MG Orally Active 1 capsule Once a day Multivitamin & NDC 27419044829 - Orally Active as directed Mineral Albuterol Sulfate ND 91520649668 (2.5 MG/3ML) Dec 18, Active 3 ml as 0.083% 2018 needed Inhalation Three times a day Baclofen ND 91574269317 10 MG Oral Active TK 1 T PO Q 8 H PRN. Divalproex Sodium ND 37660031146 500 MG Orally Sep 16, Active as directed ER 1 PO QPM 2018 Trazodone HCl [facility] 54950227385 50 MG Oral Active TK 1 T PO QHS. Docusate Sodium ND 49737228531 100 MG Orally Active 2 capsule as Twice a day needed Brimonidine [facility] 64710779745 0.15 % Active 1 drop into Tartrate Ophthalmic affected eye Twice a day Vitamin C ND 33535465856 500 MG Orally Active 2 tablets Once a day Cholecalciferol [facility] [address]-41 1000 UNIT Active 2 capsules Orally Once a day Amiodarone HCl [facility] 33884931411 200 MG Orally Active 1 tablet Once a day Divalproex Sodium [facility] 44021278606 500 MG Oral Active TK 1 T PO ER QHS. BD Pen Needle Disha [facility] 75291825604 32G X 4 MM Active INJECT USING U/F INSULIN Estrella Camposia [facility] 17361105826 100 MG Orally Active 1 tablet Once a day Glucometer test ND 0 n/s twice a Aug 28, Active one strip strips 2017 using the [employer] Metric glucometer Aspirin ND 42444962176 81 MG Orally Active 1 tablet Once a day Venlafaxine HCl ER [facility] 18964597183 75 MG Orally Active 1 capsule Once a day with food Amlodipine ND 66745716571 5 MG Orally Active 1 tablet Besylate Once a day BusPIRone HCl ND 61904615782 10 MG Oral Active 1 tablet Three times a day Clonidine HCl [facility] 24894620691 0.1 MG Orally Active 1 tablet Twice a day Furosemide ND 81932549992 20 MG Oral Active TK 1 T PO QD. Spiriva HandiHaler [facility] 33806042005 18 MCG Zuleyka Active 1 capsule Inhalation 16, Once a day 2018 Atorvastatin ND 14673243734 10 MG Orally Active 1 tablet Calcium Once a day at bedtime Loperamide HCl ND 60109228760 2 MG Oral Active TK 2 CS PO Q 6 H PRN. Symbicort [facility] 08445970788 160-4.5 Active inhale 2 MCG/ACT puffs po Inhalation bid. Twice a day Levothyroxine ND 75683651215 75 MCG Orally Active 1 tablet on Sodium Once a day an empty stomach in the morning Ipratropium-Albute [facility] [address]-08 20-100 MCG/ACT Active 1 puff rol Inhalation Four times a day Latanoprost [facility] 62079056815 0.005 % Active INT 1 GTT IN Ophthalmic OU QHS. Betaxolol HCl [facility] 72973559526 0.5 % Active 1 drop into Ophthalmic affected eye Twice a day Fenofibrate [facility] 48199919645 200 MG Orally Active 1 capsule Once a day with a meal Results No Known Results Summary Purpose eClinicalWorks Submission
--- OUTSIDE RECORDS SUMMARY | 2019-03-12 14:53 | XMS REPORT ---
:1945 Author Organization eClinicalWorks Care Team Providers Name Role Phone Alfredito Sims Provider Role Unavailable Allergies No Known Allergies Problems Problem Type Condition Code Onset Dates Condition Status Problem Type 2 diabetes mellitus without E11.9 Active complication, unspecified whether nurse companion insulin use Problem Congestive heart failure, I50.9 [...] disease, unspecified COPD type Medications Medication Code System Code Instructions Start Date End Date Status Dosage Furosemide [facility] 52502118103 20 MG Oral Once a Active 1 tablet day Results No Known Results Summary Purpose [employer] Submission
[2019-03-12] MEDS ORDERED: METHYLPREDNISOLONE 125 MG INJ ONE (16:21)
[2019-03-12] MEDS ORDERED: ASPIRIN 81 MG CHEWABLE TABLET ONE (16:22)
[2019-03-12] MEDS ORDERED: IPRATROPIUM BROM 0.5MG/2.5ML ONE (16:22)
[2019-03-12] MEDS ORDERED: ALBUTEROL 2.5 MG/3 ML NEB SOL ONE (16:22)
[2019-03-12 16:43] LABS: Protime INR 0.88
[2019-03-12 16:44] LABS: Absolute Lymphocytes (CBC) 1.1 K/uL (0.7-4.9); Basophils % 0.6 % (0-1.3); Eosinophils % 1.1 % (0-4.4); Lymphocytes % 12.5 % (15.3-44.8); MPV 10.4 fL (7.6-11.3); Monocytes % 11.7 % (3.3-12.3); RBC Red Blood Cell Count 4.65 M/uL (4.33-5.43)
--- NOTE | 2019-03-12 16:51 | RAD REPORT ---
EXAM DESCRIPTION: RAD - Chest Single View - 03/12/2019 4:26 pm CLINICAL HISTORY: Weakness, shortness of breath, COPD history COMPARISON: October 2018 TECHNIQUE: AP portable chest image was obtained 1612 hour . FINDINGS: Right pleural effusion is present small to moderate in size. Infiltrate and/or atelectasis present in the right lung base. Upper lobe vasculature within normal limits. Heart and vasculature a re normal. No pneumothorax. No acute bony abnormality seen. No acute aortic findings suspected. IMPRESSION: Small to moderate-sized right pleural effusion with infiltrate and/ or atelectasis in th e right base.
[2019-03-12 17:27] LABS: ALT/SGPT 16 U/L (12-78); AST/SGOT 15 U/L (15-37); Albumin 3.2 g/dL (3.4-5.0); Alkaline Phosphatase 75 U/L (45-117); BUN Blood Urea Nitrogen 28 mg/dL (7-18); Bilirubin Direct < 0.1 mg/dL (0-0.2); Bilirubin Total 0.2 mg/dL (0.2-1.0); Glucose Level 162 mg/dL (74-106); Magnesium 2.4 mg/dL (1.8-2.4); NT PRO-BNP 1139 pg/mL (<125); Potassium 5.3 mmol/L (3.5-5.1); Protein, Total 7.6 g/dL (6.4-8.2); Sodium Level 138 mmol/L (136-145); Troponin (Emerg Dept Use Only) < 0.02 ng/mL (0.0-0.045)
[2019-03-12 17:29] LABS: Bicarbonate 43 mmol/L (21-32)
--- NOTE | 2019-03-12 18:32 | RAD REPORT ---
EXAM DESCRIPTION: CT - Chest For Pe Angio - 03/12/2019 5:59 pm CLINICAL HISTORY: Chest pain, shortness of breath, COPD, hypertension COMPARISON: Chest film same date CT chest August 2011 TECHNIQUE: Dynamically enhanced 3 mm thick images of the chest were obtained during administration o f approximately 150mL Isovue 370 IV contrast. Coronal and oblique MIP reconstruction images were gene rated and reviewed. Exam utilizes a protocol to evaluate the pulmonary arterial tree. All CT scans are performed using dose optimization technique as appropriate and may include automated exposure control or mA/KV adjustment according to patient size. FINDINGS: No pulmonary emboli are identified. The aorta as imaged shows no acute or suspicious finding. No pericardial thickening or effusion. A 9 millimeter noncalcified pulmonary nodule is present in the left upper lobe (image 42/97). This is new from the prior examination. Small calcified granuloma is seen lateral aspect of the left upper l obe at the aortic arch level. No acute infiltrates seen in the left lung field. Patient has a moderately large right pleural effusion. There is partial atelectasis of the right lowe r lobe. A 20 x 16 millimeter nodule is present in the base of the right lower lobe anteriorly on the 2010 study. This is still present but appears to be at least partially calcified. This nodule is not fully assessed. There is atelectasis the and motion that obscure the details. Posterior right upper l obe opacification at the aortic arch level is believed be atelectasis. Patchy right upper lobe pneumo boubacar is not entirely excluded. No pneumothorax. No left-sided pleural effusion. No mediastinal or hilar suspicious masses. No chest wall masses or abnormal axillary lymphadenopathy. IMPRESSION: No pulmonary emboli. Moderately large right pleural effusion with partial atelectasis of the right lower lobe. Atelectasis versus pneumonia in the posterior aspect of the right upper lobe at the aortic arch level . A 9 millimeter noncalcified nodule has formed in the left upper lobe since 2011. Follow-up CT imaging in 3 months could be performed to monitor for stability. Alternatively, PET-CT imaging could be perf ormed to evaluate for metabolic activity. A 20 x 16 millimeter nodule at the right base in 2011 is still present appears to have at least parti ally calcified. Right base atelectasis and motion degradation limits full characterization.
[2019-03-12 18:39] LABS: Arterial Blood Carboxyhemoglob 1.6 % (0-1.5)
[2019-03-12] MEDS ORDERED: INSULIN -REGULAR HUMAN 50 UNIT/0.5 ML ML ONE (18:56)
[2019-03-12] MEDS ORDERED: FUROSEMIDE 20 MG/ 2ML VIAL ONE (18:57)
[2019-03-12] MEDS ORDERED: D50W 25 GM/50 ML SYRINGE IV ONE (18:58)
[2019-03-12] MEDS ORDERED: Levofloxacin 750mg IV 750 MG/150 ML BAG IV ONE (19:15)
--- NOTE | 2019-03-12 19:40 | ER ---
Nurse's Notes [facility] Name: Michael Duncan Age: 73 yrs Sex: Male : 1945 Arrival Date: 03/12/2019 Time: 14:40 Bed 17 Private MD: Alfredito Sims Diagnosis: Chronic obstructive pulmonary disease with (acute) exacerbation;Respiratory failure, unspecified with hypoxia;Pleural effusion in conditions classified elsewhere Presentation: 03/12 14:43 Presenting complaint: Patient states: Feeling weak, more SOB than normal, and having la1 leaking of urine. Transition of care: patient was not received from another setting of care. Onset of symptoms was March 12, 2019. Risk Assessment: Do you want to hurt yourself or someone else? Patient reports no desire to harm self or others. Initial Sepsis Screen: Does the patient meet any 2 criteria? No. Patient's initial sepsis screen is negative. Does the patient have a suspected source of infection? No. Patient's initial sepsis screen is negative. Care prior to arrival: None. 14:43 Method Of Arrival: Ambulatory la1 14:43 Acuity: SHAZIA 3 la1 Triage Assessment: 16:03 General: Appears in no apparent distress. obese, Behavior is calm, cooperative, tw2 appropriate for age. Pain: Denies pain. Neuro: Reports weakness in right leg and left leg. Respiratory: Reports shortness of breath Onset: The symptoms/episode began/occurred today, the patient has moderate shortness of breath. Historical: - Allergies: 14:43 Codeine; la1 14:43 caffiene; la1 - PMHx: 14:43 COPD; Diabetes - NIDDM; Hypertension; High Cholesterol; Bipolar disorder; la1 - Immunization history:: Adult Immunizations up to date. - Social history:: Smoking status: Patient/guardian denies using tobacco, the patient reports quitting approximately 3 years ago. - Ebola Screening: : No symptoms or risks identified at this time. Screenin:02 Abuse screen: Denies threats or abuse. Nutritional screening: No deficits noted. tw2 Tuberculosis screening: No symptoms or risk factors identified. Fall Risk Secondary diagnosis (15 points) impaired mobility. Assessment: 15:55 General: Appears in no apparent distress. obese, Behavior is calm, cooperative, tw2 appropriate for age. Pain: Denies pain. Neuro: Level of Consciousness is awake, alert, obeys commands, Oriented to person, place, time, situation. Neuro: Reports weakness "in my legs for a couple of days". Cardiovascular: Heart tones S1 S2 Capillary refill < 3 seconds Patient's skin is warm and dry. Edema is absent. Rhythm is regular. Respiratory: Reports shortness of breath at rest on exertion Airway is patent Respiratory effort is even, unlabored, weak, Respiratory pattern is regular, symmetrical, Breath sounds with wheezes bilaterally. GI: Abdomen is round non-distended, obese, Bowel sounds present X 4 quads. : No signs and/or symptoms were reported regarding the genitourinary system. EENT: No signs and/or symptoms were reported regarding the EENT system. Derm: No signs and/or symptoms reported regarding the dermatologic system. Musculoskeletal: Range of motion: intact in all extremities. 16:51 Reassessment: Patient appears in no apparent distress at this time. Patient and/or tw2 family updated on plan of care and expected duration. Pain level reassessed. Patient states feeling better. 17:45 Reassessment: Patient appears in no apparent distress at this time. Patient and/or tw2 family updated on plan of care and expected duration. Pain level reassessed. 18:06 Reassessment: pt back from CT at this time, NAD, provider and respiratory at bedside, tw2 Provider giving results, RT for ABG blood draw at this time. 18:18 Reassessment: Patient appears in no apparent distress at this time. Patient and/or tw2 family updated on plan of care and expected duration. Pain level reassessed. 19:00 General: Appears in no apparent distress. comfortable, Behavior is calm, cooperative, rr5 appropriate for age. Pain: Denies pain. Neuro: Level of Consciousness is awake, alert, obeys commands, Oriented to person, place, time, situation, Appropriate for age Reports weakness. 19:00 Reassessment: requesting to have snacks, ED provider informed with order made and rr5 carried out.. Cardiovascular: Capillary refill < 3 seconds Patient's skin is warm and dry. Respiratory: Reports shortness of breath on exertion feels better now compare before Airway is patent Respiratory effort is even, unlabored, Respiratory pattern is regular, symmetrical, on BIPAP. GI: Abdomen is round non-distended, obese. : Reports leaking of urine. EENT: No signs and/or symptoms were reported regarding the EENT system. Derm: Skin is intact, Skin temperature is warm Wound noted right big toe Wound is black dry no discharge noted. Musculoskeletal: Capillary refill < 3 seconds, Range of motion: intact in all extremities. 20:00 Reassessment: Patient appears in no apparent distress at this time. Patient and/or rr5 family updated on plan of care and expected duration. Pain level reassessed. Patient is alert, oriented x 3, equal unlabored respirations, skin warm/dry/pink. chatting with his christian science reader no complaints made. Patient denies pain at this time. Patient states feeling better. 20:57 Reassessment: Patient appears in no apparent distress at this time. Patient is alert, rr5 oriented x 3, equal unlabored respirations, skin warm/dry/pink. awaiting for room trasnfer. 21:40 Reassessment: Patient appears in no apparent distress at this time. Patient and/or rr5 family updated on plan of care and expected duration. Pain level reassessed. Patient is alert, oriented x 3, equal unlabored respirations, skin warm/dry/pink. accompanied by RT transfer to 4 th floor. no complaints made. Patient denies pain at this time. Patient states feeling better. Vital Signs: 14:43 BP 159 / 63; Pulse 60; Resp 16; Temp 97.6; Pulse Ox 95% on 3 lpm NC; Weight 126.1 kg; la1 Height 6 ft. 1 in. (185.42 cm); 16:01 BP 182 / 72; Pulse 68; Resp 15; Pulse Ox 85% on 2.5 lpm NC; tw2 16:50 BP 133 / 46; Pulse 55; Resp 17; Pulse Ox 96% on 3.5 lpm NC; tw2 17:45 BP 136 / 40; Pulse 56; Resp 17; Pulse Ox 96% on 3.5 lpm NC; tw2 18:16 Pulse Ox 94% 2.5 lpm ; tw2 18:16 BP 159 / 69; Pulse 61; Resp 17; Pulse Ox 93% on 2.5 lpm NC; tw2 19:00 BP 155 / 65; Pulse 57; Resp 17; Temp 97.9; Pulse Ox 94% on BiPAP; Pain 0/10; rr5 20:00 BP 145 / 75; Pulse 58; Resp 19; Pulse Ox 95% on BiPAP; rr5 21:00 BP 156 / 64; Pulse 56; Resp 19; Temp 97.8; Pulse Ox 94% on BiPAP; Pain 0/10; rr5 21:10 BP 157 / 48; Pulse 63; Resp 19; Temp 97.9; Pulse Ox 93% on 35% BiPAP; rr5 14:43 Body Mass Index 36.68 (126.10 kg, 185.42 cm) la1 16:01 pt states he uses "2.5 L oxygen at home" but i still feel short of breath, oxygen moved tw2 up to 3.5 L at this time, will continue to monitor. 18:16 per RT, pt states with his COPD he needs oxygen at 2.5L NC at this time. tw2 Kimberlyn Coma Score: 19:00 Eye Response: spontaneous(4). Verbal Response: oriented(5). Motor Response: obeys rr5 commands(6). Total: 15. ED Course: 14:40 Patient arrived in ED. as 14:40 Alfredito Sims MD is Private Physician. as 14:43 Arm band placed on right wrist. la1 14:45 Triage completed. la1 14:55 Bed in low position. Call light in reach. Side rails up X 1. Adult w/ patient. Cardiac tw2 monitor on. Pulse ox on. NIBP on. 15:54 Barry Sommer PA is PHCP. cp 15:55 Sam Arguelles MD is Attending Physician. cp 16:01 Samira Heart RN is Primary Nurse. tw2 16:19 EKG done, by career guidance technician. reviewed by Barry REES. dt2 16:20 Inserted saline lock: 22 gauge in left forearm, using aseptic technique. Blood tw2 collected. 16:27 XRAY Chest (1 view) In Process Unspecified. EDMS 17:[address] via stretcher. nj 17:59 CT completed. Patient tolerated procedure well. Patient moved back from CT. nj 17:59 CT Chest For PE Angio In Process Unspecified. EDMS 19:08 Report given to ALTAF Ponce - outstanding is need for POST void bladder scan and IV tw2 admin of Levaquin at this time, pt voided PRIOR to being able to bladder scan. 19:30 Bladder scan completed. 146. rr5 19:38 Alfredito Sims MD is Hospitalizing Provider. cp 21:04 No provider procedures requiring assistance completed. Patient admitted, IV remains in rr5 place. intact, No redness/swelling at site. Administered Medications: 16:10 Drug: Aspirin Chewable Tablet 324 mg Route: PO; tw2 16:53 Follow up: Response: No adverse reaction tw2 16:15 Drug: Albuterol - atroVENT (3:1) (2.5 mg - 0.5 mg) 3 ml Route: Nebulizer; tw2 16:53 Follow up: Response: No adverse reaction tw2 16:29 Drug: SOLU-Medrol 125 mg Route: IVP; Site: left forearm; tw2 16:53 Follow up: Response: No adverse reaction tw2 18:45 Drug: Insulin Regular Human 5 units {Co-Signature: ae4 (Rubén Washington RN).} Route: tw2 IVP; Site: left forearm; 19:09 Follow up: Response: No adverse reaction tw2 18:52 Drug: Lasix 20 mg Route: IVP; Site: left forearm; tw2 19:09 Follow up: Response: No adverse reaction tw2 18:52 Drug: D50W 50 ml Route: IVP; Site: left forearm; tw2 19:09 Follow up: Response: No adverse reaction tw2 19:34 Drug: LevaQUIN 750 mg Volume: 150 ml; Route: IVPB; Infused Over: 90 mins; Site: left rr5 forearm; 21:03 Follow up: Response: No adverse reaction; IV Status: Completed infusion; IV Intake: rr5 150ml Point of Care Testing: Blood Glucose: 19:25 Blood Glucose: 241 mg/dL; rr5 Ranges: Intake: 21:03 IV: 150ml; Total: 150ml. rr5 Output: 18:55 Urine: 400ml (Voided); Total: 400ml. rr5 20:46 Urine: 350ml (Voided); Total: 750ml. rr5 Outcome: 19:39 Decision to Hospitalize by Provider. cp 21:10 Admitted to Tele accompanied by tech, room 426, with oxygen, with chart, Report called rr5 to clive 21:10 Condition: stable 21:10 Instructed on the need for admit. rr5 21:42 Patient left the ED. rr5 Signatures: Dispatcher [employer] EDMS Eveline Tracy Lee RN RN la1 Barry Sommer PA PA cp Wise, Tara, RN RN tw2 Ben Gant Danielle dt2 Kris Mead RN RN rr5 Rubén Washington RN ae4 Corrections: (The following items were deleted from the chart) 17:54 17:49 Patient moved to [facility]
--- NOTE | 2019-03-12 19:41 | EDPHYS ---
Physician Documentation [facility] Name: Michael Duncan Age: 73 yrs Sex: Male : 1945 Arrival Date: 03/12/2019 Time: 14:40 Bed 17 Private MD: Alfredito Sims ED Physician Sam Arguelles HPI: 03/12 16:05 This 73 yrs old Male presents to ER via Ambulatory with complaints of cp Shortness Of Breath, Urinary Retention. 16:05 The patient has shortness of breath at rest, with light activity. Onset: The cp symptoms/episode began/occurred gradually. Duration: The symptoms are continuous, and are steadily getting worse. Associated signs and symptoms: Pertinent negatives: fever. Historical: - Allergies: 14:43 Codeine; la1 14:43 caffiene; la1 - PMHx: 14:43 COPD; Diabetes - NIDDM; Hypertension; High Cholesterol; Bipolar disorder; la1 - Immunization history:: Adult Immunizations up to date. - Social history:: Smoking status: Patient/guardian denies using tobacco, the patient reports quitting approximately 3 years ago. - Ebola Screening: : No symptoms or risks identified at this time. Exam: 16:18 ECG was reviewed by the Attending Physician. cp Vital Signs: 14:43 BP 159 / 63; Pulse 60; Resp 16; Temp 97.6; Pulse Ox 95% on 3 lpm NC; Weight 126.1 kg; la1 Height 6 ft. 1 in. (185.42 cm); 16:01 BP 182 / 72; Pulse 68; Resp 15; Pulse Ox 85% on 2.5 lpm NC; tw2 16:50 BP 133 / 46; Pulse 55; Resp 17; Pulse Ox 96% on 3.5 lpm NC; tw2 17:45 BP 136 / 40; Pulse 56; Resp 17; Pulse Ox 96% on 3.5 lpm NC; tw2 18:16 Pulse Ox 94% 2.5 lpm ; tw2 18:16 BP 159 / 69; Pulse 61; Resp 17; Pulse Ox 93% on 2.5 lpm NC; tw2 19:00 BP 155 / 65; Pulse 57; Resp 17; Temp 97.9; Pulse Ox 94% on BiPAP; Pain 0/10; rr5 20:00 BP 145 / 75; Pulse 58; Resp 19; Pulse Ox 95% on BiPAP; rr5 21:00 BP 156 / 64; Pulse 56; Resp 19; Temp 97.8; Pulse Ox 94% on BiPAP; Pain 0/10; rr5 21:10 BP 157 / 48; Pulse 63; Resp 19; Temp 97.9; Pulse Ox 93% on 35% BiPAP; rr5 14:43 Body Mass Index 36.68 (126.10 kg, 185.42 cm) la1 16:01 pt states he uses "2.5 L oxygen at home" but i still feel short of breath, oxygen moved tw2 up to 3.5 L at this time, will continue to monitor. 18:16 per RT, pt states with his COPD he needs oxygen at 2.5L NC at this time. tw2 Kimberlyn Coma Score: 19:00 Eye Response: spontaneous(4). Verbal Response: oriented(5). Motor Response: obeys rr5 commands(6). Total: 15. MDM: 16:02 Patient medically screened. cp 18:47 Physician consultation: Alfredito Sims MD was called at 18:47, left message on voicemail. cp 19:37 Physician consultation: Alfredito Sims MD was called at 19:37, was contacted at 19:37, cp regarding admission, to the telemetry unit. patient's condition. 03/12 16:02 Order name: Basic Metabolic Panel; Complete Time: 17:35 03/12 17:36 Interpretation: Normal except: K 5.3; CL 93; CO2 43; GLUC 162; BUN 28; GFR 54. 03/12 16:02 Order name: CBC with Diff; Complete Time: 16:58 07/12 17:36 Interpretation: Normal except: HGB 13.4; MCHC 31.9; BRANNON% 74.1; LYM% 12.5. 07 16:02 Order name: LFT's; Complete Time: 17:35 07 18:03 Interpretation: Normal except: ALB 3.2; GLOB 4.4; A/G 0.7. 03/12 16:02 Order name: Magnesium; Complete Time: 17:35 03/12 16:02 Order name: NT PRO-BNP; Complete Time: 17:35 03/12 17:37 Interpretation: Abnormal: NT PRO-BNP 1139. 03/12 16:02 Order name: PT-INR; Complete Time: 16:58 03/12 16:02 Order name: Troponin (emerg Dept Use Only); Complete Time: 17:35 03/12 16:02 Order name: Procalcitonin; Complete Time: 17:35 03/12 16:02 Order name: Lactate; Complete Time: 16:58 03/12 17:38 Order name: Urine Microscopic Only 03/12 17:52 Order name: ABG 03/12 19:29 Order name: Urine Dipstick--Ancillary (enter results) mw2 03/12 19:51 Order name: Basic Metabolic Panel [facility] 03/12 19:51 Order name: Basic Metabolic Panel [facility] 03/12 16:02 Order name: XRAY Chest (1 view); Complete Time: 16:58 03/12 17:38 Order name: CT Chest For PE Angio; Complete Time: 18:35 03/12 19:51 Order name: CBC with Automated Diff [facility] 03/12 19:51 Order name: CBC with Automated Diff EDMS 03/12 19:51 Order name: NT PRO-BNP [facility] 03/12 19:51 Order name: NT PRO-BNP [facility] 03/12 19:51 Order name: Troponin I [facility] 03/12 19:52 Order name: Troponin I [facility] 03/12 19:52 Order name: Troponin I [facility] 03/12 16:02 Order name: EKG; Complete Time: 16:03 03/12 16:02 Order name: Cardiac monitoring; Complete Time: 16:04 03/12 16:02 Order name: EKG - Nurse/Tech; Complete Time: 16:55 03/12 16:02 Order name: IV Saline Lock; Complete Time: 16:55 03/12 16:02 Order name: Labs collected and sent; Complete Time: 16:55 03/12 16:02 Order name: O2 Per Protocol; Complete Time: 16:04 03/12 16:02 Order name: O2 Sat Monitoring; Complete Time: 16:04 12 17:38 Order name: Urine Dipstick-Ancillary (obtain specimen); Complete Time: 19:34 12 19:55 Order name: Consistent Carb (ADA) 2000 Paul EDMS EC:18 Rate is 55 beats/min. Rhythm is regular. NC interval is normal. QRS interval is normal. cp QT interval is normal. Interpreted by me. Reviewed by me. Administered Medications: 16:10 Drug: Aspirin Chewable Tablet 324 mg Route: PO; tw2 16:53 Follow up: Response: No adverse reaction tw2 16:15 Drug: Albuterol - atroVENT (3:1) (2.5 mg - 0.5 mg) 3 ml Route: Nebulizer; tw2 16:53 Follow up: Response: No adverse reaction tw2 16:29 Drug: SOLU-Medrol 125 mg Route: IVP; Site: left forearm; tw2 16:53 Follow up: Response: No adverse reaction tw2 18:45 Drug: Insulin Regular Human 5 units {Co-Signature: ae4 (Rubén Washington RN).} Route: tw2 IVP; Site: left forearm; 19:09 Follow up: Response: No adverse reaction tw2 18:52 Drug: Lasix 20 mg Route: IVP; Site: left forearm; tw2 19:09 Follow up: Response: No adverse reaction tw2 18:52 Drug: D50W 50 ml Route: IVP; Site: left forearm; tw2 19:09 Follow up: Response: No adverse reaction tw2 19:34 Drug: LevaQUIN 750 mg Volume: 150 ml; Route: IVPB; Infused Over: 90 mins; Site: left rr5 forearm; 21:03 Follow up: Response: No adverse reaction; IV Status: Completed infusion; IV Intake: rr5 150ml Point of Care Testing: Blood Glucose: 19:25 Blood Glucose: 241 mg/dL; rr5 Ranges: Critical Glucose Levels:Adult <50 mg/dl or >400 mg/dl <40 mg/dl or >180 mg/dl Disposition: 03/12/19 19:39 Hospitalization ordered by Alfredito Sims for Inpatient Admission. Preliminary diagnosis are Chronic obstructive pulmonary disease with (acute) exacerbation, Respiratory failure, unspecified with hypoxia, Pleural effusion in conditions classified elsewhere. - Bed requested for Telemetry/MedSurg (Inpatient). - Status is Inpatient Admission. rr5 - Condition is Fair. - Problem is an acute exacerbation. - Symptoms have improved. UTI on Admission? No Signatures: Dispatcher [employer] Boris Villagomez, RN RN la1 Barry Sommer PA PA cp Ashli Michael, RN RN cg Samira Heart RN RN tw2 Kris Mead RN RN rr5 Rubén Washington RN ae4 Corrections: (The following items were deleted from the chart) 18:52 18:49 Bladder Scanner ordered. cp tw2 19:42 19:39 Hospitalization Ordered by Alfredito Sims MD for Inpatient Admission. Preliminary cp diagnosis is Chronic obstructive pulmonary disease with (acute) exacerbation; Respiratory failure, unspecified with hypoxia. Bed requested for Telemetry/MedSurg (Inpatient). Status is Inpatient Admission. Condition is Fair. Problem is an acute exacerbation. Symptoms have improved. UTI on Admission? No. cp 20:38 19:42 03/12/2019 19:39 Hospitalization Ordered by Alfredito Sims MD for Inpatient cg Admission. Preliminary diagnosis is Chronic obstructive pulmonary disease with (acute) exacerbation; Respiratory failure, unspecified with hypoxia; Pleural effusion in conditions classified elsewhere. Bed requested for Telemetry/MedSurg (Inpatient). Status is Inpatient Admission. Condition is Fair. Problem is an acute exacerbation. Symptoms have improved. UTI on Admission? No. cp 21:42 20:38 03/12/2019 19:39 Hospitalization Ordered by Alfredito Sims MD for Inpatient rr5 Admission. Preliminary diagnosis is Chronic obstructive pulmonary disease with (acute) exacerbation; Respiratory failure, unspecified with hypoxia; Pleural effusion in conditions classified elsewhere. Bed requested for Telemetry/MedSurg (Inpatient). Status is Inpatient Admission. Condition is Fair. Problem is an acute exacerbation. Symptoms have improved. UTI on Admission? No. cg
[2019-03-12] MEDS ORDERED: ACETAMINOPHEN 500 MG TAB PO PRN (19:49)
[2019-03-12] MEDS ORDERED: ONDANSETRON 4 MG/2 ML VIAL IV PRN (19:49)
[2019-03-12] MEDS ORDERED: D50W 25 GM/50 ML SYRINGE IV PRN (19:53)
[2019-03-12] MEDS ORDERED: GLUCAGON 1 MG/VIAL IM PRN (19:53)
[2019-03-12 20:17] LABS: Urine Blood NEGATIVE (NEG); Urine Glucose NEGATIVE (NEG); Urine Protein 3+ (NEG); Urine Specific Gravity 1.025 (1.005-1.030)
[2019-03-12 20:29] LABS: Urine Bacteria <20 /HPF (NONE SEEN); Urine Culture Reflex Order NOT NEEDED; Urine RBC <5 /HPF (NONE SEEN)
[2019-03-12] MEDS: HYDRALAZINE HCL 20 MG/ML VIAL IV PRN (23:04)
[2019-03-12] MEDS: DOXEPIN HCL 10 MG CAP PO SCH (23:04)
[2019-03-12] MEDS: INSULIN -REGULAR HUMAN 50 UNIT/0.5 ML ML SQ SCH (23:06)
[2019-03-13] MEDS ORDERED: METHYLPREDNISOLONE 40 MG INJ IV SCH (01:00)
[2019-03-13 04:34] LABS: Absolute Lymphocytes (CBC) 0.5 K/uL (0.7-4.9); Basophils % 0.2 % (0-1.3); Hematocrit 38.3 % (39.6-49.0); Lymphocytes % 6.5 % (15.3-44.8); MPV 10.8 fL (7.6-11.3); Monocytes % 3.7 % (3.3-12.3); RBC Red Blood Cell Count 4.33 M/uL (4.33-5.43)
[2019-03-13] MEDS: HYDRALAZINE HCL 20 MG/ML VIAL IV PRN ×2 (04:48→10:11)
[2019-03-13 05:26] LABS: Potassium 4.7 mmol/L (3.5-5.1)
[2019-03-13 05:27] LABS: Platelet Estimate ADEQ; Urine White Blood Cell Casts OK
[2019-03-13 05:28] LABS: Blood Morphology Comment NOT SEEN (NOT SEEN)
[2019-03-13] MEDS: INSULIN -REGULAR HUMAN 50 UNIT/0.5 ML ML SQ SCH ×4 (08:16→21:34)
--- NOTE | 2019-03-13 08:24 | P.HP ---
Certification for Inpatient Patient admitted to: Inpatient With expected LOS: >2 Midnights Patient will require the following post-hospital care: None Practitioner: I am a practitioner with admitting privileges, knowledge of patient current condition, hospital course, and medical plan of care. Services: Services provided to patient in accordance with Admission requirements found in Title 42 Section 412.3 of the Code of Federal Regulations Patient History Date of Service: 03/13/19 Primary Care Provider: Levi Reason for admission: COPD exacerbation History of Present Illness: Patient is a pleasant office patient with a history of htn, copd, diabetes. He did not have the hose for his bipap and was not able to wear it at home. He became very short of breath and checked his oxygen. Was in the 75% per his home pulse oximeter. Tried increasing the oxygen from his nasal canula. However there was minimal improvement in his oxygen and pulse oximeter. Therefore he came to the ER. This is an appropriate response. He was given a breathing treatment, and oxygen was given. However he did not experience relief of his symptoms till he was started on a bipap. Therefore deemed prudent to keep him in house. Especially as he does not have his necessary supplies at home. Allergies caffeine Allergy (Verified 03/12/19 22:27) Anaphylaxis codeine Allergy (Verified 03/12/19 22:27) Anaphylaxis Home Medications: Albuterol Sulfate [Albuterol Sulfate 0.083% Neb Soln] 1 amp IH BID 03/12/19 Amiodarone HCl [Pacerone] 1 tab PO DAILY 03/12/19 Amlodipine Besylate 1 tab PO 1400 03/12/19 Aspirin 1 tab PO DAILY 03/12/19 Atorvastatin Calcium 1 tab PO BEDTIME 03/12/19 Divalproex Sodium [Divalproex Sodium ER] 1 tab PO BEDTIME 03/12/19 Doxepin HCl [Sinequan*] 1 tab PO BEDTIME 03/12/19 Doxepin HCl [Sinequan*] 1 tab PO BEDTIME 03/12/19 Furosemide 1 tab PO DAILY 03/12/19 Insulin Degludec [Tresiba Flextouch U-100] 60 units SQ BEDTIME 03/12/19 Levothyroxine [Synthroid*] 1 tab PO DAILY 03/12/19 Lisinopril [Prinivil*] 1 tab PO DAILY 03/12/19 Metoprolol Tartrate 1 tab PO Q8H 03/12/19 Sitagliptin Phosphate [Januvia*] 1 tab PO DAILY 03/12/19 Venlafaxine HCl [Venlafaxine HCl ER] 1 tab PO BEDTIME 03/12/19 Vitamin C 500 mg PO DAILY 03/12/19 Vitamin D3 1 tab PO DAILY 03/12/19 cloNIDine HCl [Clonidine HCl] 1 tab PO 1400 03/12/19 cloNIDine HCl [Clonidine HCl] 1 tab PO DAILY 03/12/19 risperiDONE [Risperidone] 3 tab PO BEDTIME 03/12/19 - Past Medical/Surgical History Has patient received pneumonia vaccine in the past: Yes Diabetic: Yes -: COPD -: DM NIDDM -: HTN -: High cholesterol -: Bipolar -: CHF -: Heart stents - Family History Mother Notes: Stroke - Social History Smoking Status: Former smoker Alcohol use: No CD- Drugs: No Caffeine use: No Place of Residence: Home Review of Systems 10-point ROS is otherwise unremarkable General: Other (feel distressed without his depression meds ) Respiratory: Shortness of Breath Physical Examination - Vital Signs Temperature: 98 F Blood Pressure: 180/80 Pulse: 84 Respirations: 16 Pulse Ox (%): 97 - Physical Exam General: Alert, In no apparent distress HEENT: Atraumatic, PERRLA, Mucous membr. moist/pink, EOMI, Sclerae nonicteric Neck: Supple, 2+ carotid pulse no bruit, No LAD, Without JVD or thyroid abnormality Respiratory: Clear to auscultation bilaterally, Diminished (diminisher but this is his baseline) Cardiovascular: Regular rate/rhythm, Normal S1 S2 Gastrointestinal: Normal bowel sounds, No tenderness Musculoskeletal: No tenderness Integumentary: No rashes Neurological: Normal gait, Normal speech, Normal strength at 5/5 x4 extr, Normal tone, Normal affect Lymphatics: No axilla or inguinal lymphadenopathy - Studies Laboratory Data (last 24 hrs) 03/12/19 16:20: PT 10.4, INR 0.88 03/12/19 16:20: WBC 8.5, Hgb 13.4 L, Hct 42.0, Plt Count 175 03/12/19 16:20: Sodium 138, Potassium 5.3 H, BUN 28 H, Creatinine 1.29, Glucose 162 H, Magnesium 2.4, Total Bilirubin 0.2, AST 15, ALT 16, Alkaline Phosphatase 75 Assessment and Plan - Problems (Diagnosis) (1) COPD exacerbation Current Visit: Yes Status: Acute Plan: He is doing much better. Will d/c the steroids and switch to PRN breathing treatment. Unfortunately he needs his cpap supplies. Is unlikely to get them over the weekend. If we discharge him without the hose that fits his machine he will most likely be right back in the hospital. Will keep till Friday when we can arrange his supplies (2) Depression Current Visit: Yes Status: Acute Plan: restart his home medications., Qualifiers: Depression Type: major depressive disorder (3) HTN (hypertension) Current Visit: Yes Status: Acute Plan: will restart his home amlodipine and lisinopril. He has hydralazine for any increases over 160 sbp Qualifiers: Hypertension type: essential hypertension Qualified Code(s): I10 - Essential (primary) hypertension (4) Diabetes 1.5, managed as type 2 Current Visit: Yes Status: Acute Plan: Will restart home meds. Januvia. Will sub levemir in house for his insulin. Continue to monitor his sugars. Discharge Plan: Home Plan to discharge in: 48 Hours - Advance Directives Does patient have a Living Will: No Does patient have a Durable POA for Healthcare: Yes - Code Status/Comfort Care Code Status Assessed: Yes Code Status: Full Code Physician Review: Patient Assessed, Agree with Above Assessment and Plan Critical Care: No Time Spent Managing Pts Care (In Minutes): 30
[2019-03-13] MEDS: ASPIRIN 81 MG CHEWABLE TABLET PO SCH (08:29)
[2019-03-13] MEDS: LISINOPRIL 20 MG TAB PO SCH (08:31)
[2019-03-13] MEDS: AMIODARONE HCL 200 MG TAB PO SCH (08:31)
[2019-03-13] MEDS ORDERED: ASPIRIN EC 81 MG TAB PO SCH (09:00)
[2019-03-13] MEDS: VITAMIN D3 PO SCH (09:00)
[2019-03-13] MEDS: METOPROLOL TAR 25 MG TAB PO SCH ×3 (09:08→20:56)
[2019-03-13] MEDS: SITAGLIPTIN PHOS 100 MG TAB PO SCH (09:09)
[2019-03-13] MEDS: ASCORBIC ACID 500 MG TABLET PO SCH (09:09)
--- NOTE | 2019-03-13 09:58 | EKG ---
Test Date: 2019-03-12 Test Time: 16:15:39 Early Childhood Director: ALESIA MEASUREMENT RESULTS: Intervals: Rate: 55 TN: 182 QRSD: 82 QT: 456 QTc: 436 [place]: P: 50 TN: 182 QRS: 44 T: 41 INTERPRETIVE STATEMENTS: Sinus bradycardia Otherwise normal ECG Compared to ECG 09/09/2010 22:19:42 Sinus rhythm no longer present Prolonged QT interval no longer present Electronically Signed On 03-13-19 09:57:17 CDT by Freddy Cason
[2019-03-13] MEDS: IPRATROPIUM BROM 0.5MG/2.5ML NEB PRN ×2 (12:35→18:40)
[2019-03-13] MEDS: ALBUTEROL 2.5 MG/3 ML NEB SOL NEB PRN ×2 (12:35→18:40)
[2019-03-13] MEDS: AMLODIPINE 5 MG TAB PO SCH (13:01)
[2019-03-13] MEDS: BUSPIRONE HCL 5 MG TABLET PO SCH ×2 (14:23→21:34)
[2019-03-13] MEDS: ENOXAPARIN 40 MG/0.4 ML SQ SCH (16:16)
[2019-03-13] MEDS: VENLAFAXINE HCL XR 75 MG CAP PO SCH (20:55)
[2019-03-13] MEDS: DIVALPROEX ER 250 MG TAB PO SCH (20:56)
[2019-03-13] MEDS: ATORVASTATIN 10 MG TAB PO SCH (20:57)
[2019-03-13] MEDS ORDERED: DOXEPIN HCL 10 MG CAP PO SCH (21:00)
[2019-03-13] MEDS: Insulin Degludec [Tresiba Flextouch U-100] SQ SCH (21:00)
[2019-03-13] MEDS: RISPERIDONE 0.25 MG TABLET PO SCH (21:33)
[2019-03-13] MEDS: DOXEPIN HCL 10 MG CAP PO SCH (22:16)
[2019-03-14] MEDS: PANTOPRAZOLE 40MG TABLET PO SCH (05:50)
[2019-03-14] MEDS: LEVOTHYROXINE SOD 0.075 MG TAB PO SCH (05:50)
[2019-03-14] MEDS: INSULIN -REGULAR HUMAN 50 UNIT/0.5 ML ML SQ SCH ×4 (07:30→21:00)
[2019-03-14] MEDS ORDERED: IPRATROPIUM BROM 0.5MG/2.5ML NEB PRN (08:00)
[2019-03-14] MEDS: ALBUTEROL 2.5 MG/3 ML NEB SOL NEB PRN (08:05)
[2019-03-14] MEDS: VITAMIN D3 PO SCH (09:00)
[2019-03-14 09:15] LABS: Potassium 4.4 mmol/L (3.5-5.1)
[2019-03-14] MEDS: BUSPIRONE HCL 5 MG TABLET PO SCH ×3 (09:19→22:29)
[2019-03-14] MEDS: ASPIRIN 81 MG CHEWABLE TABLET PO SCH (09:19)
[2019-03-14] MEDS: METOPROLOL TAR 25 MG TAB PO SCH ×3 (09:19→22:30)
[2019-03-14] MEDS: SITAGLIPTIN PHOS 100 MG TAB PO SCH (09:19)
[2019-03-14] MEDS: ASCORBIC ACID 500 MG TABLET PO SCH (09:19)
[2019-03-14] MEDS: AMIODARONE HCL 200 MG TAB PO SCH (09:20)
[2019-03-14] MEDS: LISINOPRIL 20 MG TAB PO SCH (09:20)
--- NOTE | 2019-03-14 09:37 | P.PN ---
Subjective Date of Service: 03/14/19 Primary Care Provider: Levi Chief Complaint: COPD exacerbation Subjective: New changes (pt had a round of bradycardia. However asymptomatic. Ambulated with PT yesterday 40 feet with no difficulties) Review of Systems 10-point ROS is otherwise unremarkable Physical Examination - Vital Signs Temperature: 97.9 F Blood Pressure: 157/64 Pulse: 68 Respirations: 20 Pulse Ox (%): 96 - Physical Exam General: Alert, In no apparent distress HEENT: Atraumatic, PERRLA, EOMI Neck: Supple, JVD not distended Respiratory: Clear to auscultation bilaterally, Normal air movement Cardiovascular: Regular rate/rhythm, Normal S1 S2 Gastrointestinal: Normal bowel sounds, No tenderness Musculoskeletal: No tenderness Integumentary: No rashes Neurological: Normal speech, Normal tone, Normal affect Lymphatics: No axilla or inguinal lymphadenopathy Assessment & Plan - Problems (Diagnosis) (1) COPD exacerbation Current Visit: Yes Status: Acute Plan: He is doing much better. Will d/c the steroids and switch to PRN breathing treatment. Unfortunately he needs his cpap supplies. Is unlikely to get them over the weekend. If we discharge him without the hose that fits his machine he will most likely be right back in the hospital. Will keep till Friday when we can arrange his supplies (2) Depression Current Visit: Yes Status: Acute Plan: restart his home medications., Qualifiers: Depression Type: major depressive disorder (3) HTN (hypertension) Current Visit: Yes Status: Acute Plan: will restart his home amlodipine and lisinopril. He has hydralazine for any increases over 160 sbp Qualifiers: Hypertension type: essential hypertension Qualified Code(s): I10 - Essential (primary) hypertension (4) Diabetes 1.5, managed as type 2 Current Visit: Yes Status: Acute Plan: Will restart home meds. Januvia. Will sub levemir in house for his insulin. Continue to monitor his sugars. (5) CHF (congestive heart failure), NYHA class II Current Visit: Yes Status: Acute Plan: Has been seen by Dr. Garcia/Yoav in the past. Is on beta catalino for the heart failure. He is asymptomatic. However pulse is in the 60s chronically. Most likely this is good Beta catalino dosage. However will consult Dr. Cason to get his input. Or see if the patient needs an echocardiogram during this visit or if there is one in the office. Qualifiers: Congestive heart failure type: unspecified Qualified Code(s): I50.9 - Heart failure, unspecified Discharge Plan: Home Plan to discharge in: 24 Hours - Code Status/Comfort Care Code Status Assessed: No Physician Review: Patient Assessed, Agree with Above Assessment and Plan Critical Care: No Time Spent Managing Pts Care (In Minutes): 20
--- NOTE | 2019-03-14 12:25 | CON ---
Chief Complaint: Dyspnea. Reason For Cardiology Consult: Congestive heart failure. History Of Present Illness: Mr. Duncan is a gentleman, who has chronic diastolic heart failure. Willam hernandez comes to the hospital with a moderate size right pleural effusion. There also seems to be some pul monary issues. In addition to that, a new nodule on the left and some other confusing-looking anatom y to me in the right lung. Effusion has not been tapped and it was not there in October 2018 or it was extremely small, just a matter of 20 or 30 mL, now it is probably close to 500. At this point, jacobo e do not have a diagnosis for the effusion. I am asked to see him to see if we think it is possibly due to congestive heart failure. The patient has a history of tobacco use, ongoing. He stopped smok ing 5 years ago, but continues smokeless tobacco. He has underlying diabetes, hypertension, chronic diastolic congestive heart failure. His EKG shows sinus bradycardia, otherwise it is normal. Physical Examination: Vital signs: 6 feet 1 inches, 300 pounds. General: Sleepy, awakened easily, alert, oriented, pleasant, not in distress. Lungs: There are no breath sounds on the right, decreased breath sounds on the left. Some mild whee zing diffusely. Heart: Within normal limits. Extremities: No significant edema. Impression: Mr. Duncan needs to get an echocardiogram, probably have a pulmonary evaluation for th e effusion. PEEWEE/DAMARIS Voice ID: [id number] Report ID: [id number]
--- NOTE | 2019-03-14 12:33 | P.CNS ---
Date of Consult: 03/14/19 Primary Care Provider: Levi Chief Complaint: Respiratory failure and right-sided pleural effusion History of Present Illness: Patient is 73 years of age admitted to the hospital with shortness of breath hypoxemia he has hypoxic hypercapnic according to the he has sleeps most of the day time no fever chills cough sputum hemoptysis or chest pain he was found to have a new right-sided pleural effusion the solitary pulmonary nodule a 0.5 mm in the left upper lobe CBC unremarkable he has hypoxic hypercapnic Allergies caffeine Allergy (Verified 03/12/19 22:27) Anaphylaxis codeine Allergy (Verified 03/12/19 22:27) Anaphylaxis Home Medications: Albuterol Sulfate [Albuterol Sulfate 0.083% Neb Soln] 1 amp IH BID 03/12/19 Amiodarone HCl [Pacerone] 1 tab PO DAILY 03/12/19 Amlodipine Besylate 1 tab PO 1400 03/12/19 Aspirin 1 tab PO DAILY 03/12/19 Atorvastatin Calcium 1 tab PO BEDTIME 03/12/19 Divalproex Sodium [Divalproex Sodium ER] 1 tab PO BEDTIME 03/12/19 Doxepin HCl [Sinequan*] 1 tab PO BEDTIME 03/12/19 Doxepin HCl [Sinequan*] 1 tab PO BEDTIME 03/12/19 Furosemide 1 tab PO DAILY 03/12/19 Insulin Degludec [Tresiba Flextouch U-100] 60 units SQ BEDTIME 03/12/19 Levothyroxine [Synthroid*] 1 tab PO DAILY 03/12/19 Lisinopril [Prinivil*] 1 tab PO DAILY 03/12/19 Metoprolol Tartrate 1 tab PO Q8H 03/12/19 Sitagliptin Phosphate [Januvia*] 1 tab PO DAILY 03/12/19 Venlafaxine HCl [Venlafaxine HCl ER] 1 tab PO BEDTIME 03/12/19 Vitamin C 500 mg PO DAILY 03/12/19 Vitamin D3 1 tab PO DAILY 03/12/19 cloNIDine HCl [Clonidine HCl] 1 tab PO 1400 03/12/19 cloNIDine HCl [Clonidine HCl] 1 tab PO DAILY 03/12/19 risperiDONE [Risperidone] 3 tab PO BEDTIME 03/12/19 Buspirone HCl [Buspar] 1 tab PO TID 03/13/19 - Past Medical/Surgical History Diabetic: Yes -: COPD -: DM NIDDM -: HTN -: High cholesterol -: Bipolar -: CHF -: Heart stents - Family History Mother Notes: Stroke - Social History Smoking Status: Current some day smoker Alcohol use: No CD- Drugs: No Caffeine use: No Place of Residence: Home Physical Examination Temp Pulse Resp BP Pulse Ox 98.4 F 59 20 157/66 H 96 03/14/19 12:00 03/14/19 12:00 03/14/19 12:00 03/14/19 12:00 03/14/19 12:00 - Problems (1) Respiratory failure Current Visit: Yes Status: Acute Plan: Patient is 73 years of age admitted with worsening shortness of breath he has a new onset of right-sided pleural effusion and left upper lobe solitary pulmonary nodule which also appears to be new in addition he has excessive daytime somnolence is very hypercapnic has history of severe COPD will benefit from a noninvasive ventilator to prevent hospital admissions respiratory failure is chronic secondary to his severe COPD he has other comorbid problems including atrial fibrillation and may benefit for anticoagulation Qualifiers: Respiratory failure complication: hypoxia and hypercapnia (2) Pleural effusion Current Visit: Yes Status: Acute Plan: Patient has a new pleural effusion on the right side is no current evidence of sepsis echocardiogram is pending I recommend bilateral decubitus chest x-ray PA and lateral chest x-ray was no evidence of thromboembolism patient is high risk for thoracentesis right now TSH level is satisfactory may end up scheduling him for a thoracentesis blood pressure elevated
[2019-03-14] MEDS: IPRATROPIUM BROM 0.5MG/2.5ML NEB SCH ×2 (13:55→19:50)
[2019-03-14] MEDS: AMLODIPINE 5 MG TAB PO SCH (15:09)
[2019-03-14] MEDS: ENOXAPARIN 40 MG/0.4 ML SQ SCH (16:30)
[2019-03-14] MEDS ORDERED: FUROSEMIDE 20 MG/ 2ML VIAL IV SCH (17:00)
[2019-03-14] MEDS: ARFORMOTEROL TARTRATE 15 MCG/2 ML VIAL.NEB NEB SCH (19:50)
--- NOTE | 2019-03-14 20:10 | EKG ---
Test Date: 2019-03-14 Test Time: 08:58:34 Slag Motor Operator: SUSANNE MEASUREMENT RESULTS: Intervals: Rate: 59 [place]: 172 QRSD: 82 QT: 458 QTc: 453 [place]: P: 44 WA: 172 QRS: 35 T: 38 INTERPRETIVE STATEMENTS: Sinus bradycardia Otherwise normal ECG Compared to ECG 03/12/2019 16:15:39 No significant changes Electronically Signed On 03-14-19 20:08:43 CDT by Freddy Cason
[2019-03-14] MEDS: ATORVASTATIN 10 MG TAB PO SCH (22:29)
[2019-03-14] MEDS: DIVALPROEX ER 250 MG TAB PO SCH (22:29)
[2019-03-14] MEDS: VENLAFAXINE HCL XR 75 MG CAP PO SCH (22:30)
[2019-03-14] MEDS: RISPERIDONE 0.25 MG TABLET PO SCH (22:30)
[2019-03-14] MEDS: DOXEPIN HCL 10 MG CAP PO SCH (22:32)
[2019-03-14] MEDS: Insulin Degludec [Tresiba Flextouch U-100] SQ SCH (22:48)
[2019-03-15] MEDS: LEVOTHYROXINE SOD 0.075 MG TAB PO SCH (06:10)
[2019-03-15] MEDS: PANTOPRAZOLE 40MG TABLET PO SCH (06:10)
[2019-03-15] MEDS: INSULIN -REGULAR HUMAN 50 UNIT/0.5 ML ML SQ SCH ×4 (07:30→21:07)
[2019-03-15] MEDS: IPRATROPIUM BROM 0.5MG/2.5ML NEB SCH ×3 (08:00→19:50)
[2019-03-15] MEDS: ARFORMOTEROL TARTRATE 15 MCG/2 ML VIAL.NEB NEB SCH ×2 (08:00→19:50)
[2019-03-15 08:45] LABS: Potassium 4.8 mmol/L (3.5-5.1)
[2019-03-15] MEDS: VITAMIN D3 PO SCH ×2 (09:00→11:31)
[2019-03-15] MEDS: BUSPIRONE HCL 5 MG TABLET PO SCH ×3 (09:41→21:09)
[2019-03-15] MEDS: ASCORBIC ACID 500 MG TABLET PO SCH (09:41)
[2019-03-15] MEDS: AMIODARONE HCL 200 MG TAB PO SCH (09:42)
[2019-03-15] MEDS: ASPIRIN 81 MG CHEWABLE TABLET PO SCH (09:42)
[2019-03-15] MEDS: METOPROLOL TAR 25 MG TAB PO SCH ×3 (09:42→21:09)
[2019-03-15] MEDS: LISINOPRIL 20 MG TAB PO SCH (09:42)
[2019-03-15] MEDS: SITAGLIPTIN PHOS 100 MG TAB PO SCH (09:43)
--- NOTE | 2019-03-15 10:19 | ECHO ---
HEIGHT: 6 ft 1 in WEIGHT: 300 lb 9.6 oz DATE OF STUDY: 03/15/[address]: Freddy Cason MD 2-DIMENSIONAL: YES M.MODE: YES DOPPLER: YES COLOR FLOW: YES TDS: YES PORTABLE: NO DEFINITY: NO BUBBLE STUDY: NO DIAGNOSIS: CONGESTIVE HEART FAILURE CARDIAC HISTORY: CATHERIZATION: NO SURGERY: NO PROSTHETIC VALVE: NO PACEMAKER: NO MEASUREMENTS (cm) DIASTOLIC (NORMALS) SYSTOLIC (NORMALS) IVSd 1.2 (0.6-1.2) LA Diam 4.3 (1.9-4.0) LVEF 73% LVIDd 6.6 (3.5-5.7) LVIDs 3.8 (2.0-3.5) %FS 43% LVPWd 1.3 (0.6-1.2) Ao Diam 2.7 (2.0-3.7) 2 DIMENSIONAL ASSESSMENT: RIGHT ATRIUM: NORMAL LEFT ATRIUM: DILATED RIGHT VENTRICLE: NORMAL LEFT VENTRICLE: LEFT VENTRICULAR HYPERTROPHY/ DILATATION TRICUSPID VALVE: NORMAL MITRAL VALVE: NORMAL PULMONIC VALVE: NORMAL AORTIC VALVE: NORMAL PERICARDIAL EFFUSION: NONE AORTIC ROOT: NORMAL LEFT VENTRICULAR WALL MOTION: NORMAL. DOPPLER/COLOR FLOW: TECHNICALLY DIFFICULT STUDY. SUSPECT IMPAIRED LEFT VENTRICULAR RELAXATION. COMMENTS: NORMAL LEFT VENTRICULAR EJECTION FRACTION WITH DILATATION AND LEFT VENTRICULAR HYPERTROPHY. SUSPECT IMPAIRED LEFT VENTRICULAR RELAXATION. DILATED LEFT ATRIUM. TECHNOLOGIST: JUSTYNA LUU
--- NOTE | 2019-03-15 10:24 | RAD REPORT ---
EXAM DESCRIPTION: US - Chest - 03/15/2019 10:14 am CLINICAL HISTORY: To evaluate for possible thoracentesis Pleural effusion COMPARISON: Chest For Pe Angio dated 03/12/2019 FINDINGS: Right posterior chest wall sonography was performed. A drainable pleural fluid collection was not clearly seen.
--- NOTE | 2019-03-15 11:05 | RAD REPORT ---
EXAM DESCRIPTION: RAD - Chest Single View - 03/15/2019 10:56 am CLINICAL HISTORY: Pleural effusion COMPARISON: Chest ultrasound same, CT chest March 12, portable chest March 12 TECHNIQUE: AP portable chest image was obtained 1015 hours . FINDINGS: Normal lung volumes noted. Pleural effusion in the right lower lung field is present but a ppears slightly smaller than the prior study. Better aeration in the mid right lung field seen. No ne w or progressive left lung field finding. Cardiomediastinal silhouette is stable. No pneumothorax. Ri ght middle lobe atelectasis suspected. No acute bony abnormality seen. No acute aortic findings suspe cted. IMPRESSION: Right-sided pleural effusion appears slightly smaller than the March 12 study. Right middle lobe atelectasis.
--- NOTE | 2019-03-15 11:06 | RAD REPORT ---
EXAM DESCRIPTION: RAD - Chest Lateral Decubitus - 03/15/2019 10:56 am CLINICAL HISTORY: Right-sided pleural effusion COMPARISON: AP chest examination same date TECHNIQUE: Right and left lateral decubitus films were obtained. FINDINGS: Partially layering right pleural effusion is seen. There is right base atelectasis. No lay ering pleural effusion on the left.
[2019-03-15] MEDS: FUROSEMIDE 40 MG TABLET PO SCH (11:30)
--- NOTE | 2019-03-15 12:00 | P.PN ---
Subjective Date of Service: 03/15/19 Primary Care Provider: Levi Chief Complaint: Respiratory failure and right-sided pleural effusion Subjective: No new changes Review of Systems 10-point ROS is otherwise unremarkable Physical Examination - Vital Signs Temperature: 97.1 F Blood Pressure: 184/80 Pulse: 53 Respirations: 20 Pulse Ox (%): 95 - Physical Exam General: Alert, In no apparent distress HEENT: Atraumatic, PERRLA, EOMI Neck: Supple, JVD not distended Respiratory: Clear to auscultation bilaterally, Normal air movement Cardiovascular: Regular rate/rhythm, Normal S1 S2 Gastrointestinal: Normal bowel sounds, No tenderness Musculoskeletal: No tenderness Integumentary: No rashes Neurological: Normal speech, Normal tone, Normal affect Lymphatics: No axilla or inguinal lymphadenopathy Assessment & Plan - Problems (Diagnosis) (1) COPD exacerbation Current Visit: Yes Status: Acute Plan: He is doing well. Today states he does not have a bipap at home. Dr. Germain was in the room. No plans for pleural effusion. Plans to get the patient an outpatient bipap. If arranged today he can go home. (2) Depression Current Visit: Yes Status: Acute Plan: restart his home medications., Qualifiers: Depression Type: major depressive disorder (3) HTN (hypertension) Current Visit: Yes Status: Acute Plan: will restart his home amlodipine and lisinopril. He has hydralazine for any increases over 160 sbp Qualifiers: Hypertension type: essential hypertension Qualified Code(s): I10 - Essential (primary) hypertension (4) Diabetes 1.5, managed as type 2 Current Visit: Yes Status: Acute Plan: Will restart home meds. Januvia. Will sub levemir in house for his insulin. Continue to monitor his sugars. (5) CHF (congestive heart failure), NYHA class II Current Visit: Yes Status: Acute Plan: Has been seen by Dr. Garcia/Yoav in the past. Is on beta catalino for the heart failure. He is asymptomatic. However pulse is in the 60s chronically. Most likely this is good Beta catalino dosage. However will consult Dr. Cason to get his input. Or see if the patient needs an echocardiogram during this visit or if there is one in the office. 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 Refer to the wound center. Discharge Plan: Home Plan to discharge in: 24 Hours - Code Status/Comfort Care Code Status Assessed: No Physician Review: Patient Assessed, Agree with Above Assessment and Plan Critical Care: No Time Spent Managing Pts Care (In Minutes): 20
--- NOTE | 2019-03-15 12:16 | P.PN ---
Subjective Date of Service: 03/15/19 Primary Care Provider: Levi Chief Complaint: Respiratory failure and right-sided pleural effusion Subjective: Improving (Patient is doing better still short of breath) Review of Systems General: Weakness Respiratory: Shortness of Breath Physical Examination - Vital Signs Temperature: 97.1 F Blood Pressure: 184/80 Pulse: 53 Respirations: 20 Pulse Ox (%): 95 - Physical Exam General: Alert, Oriented x3 Neck: Supple Respiratory: Diminished (Diminished on the right side) Cardiovascular: No edema, Regular rate/rhythm Assessment & Plan - Problems (Diagnosis) (1) Respiratory failure Current Visit: Yes Status: Acute Plan: Patient has chronic respiratory failure and may qualify for noninvasive ventilator sec he has chronic respiratory failure secondary to COPD and may prevent recurrent hospitalizations patient has severe COPD continue with bronchodilators in addition he also has atrial fibrillation and needs to be anti coagulated they also benefit from a daily Lasix patient has diastolic dysfunction Qualifiers: Respiratory failure complication: hypoxia and hypercapnia (2) Pleural effusion Current Visit: Yes Status: Acute Plan: Patient has a new pleural effusion on the right side is no current evidence of sepsis echocardiogram is pending I recommend bilateral decubitus chest x-ray PA and lateral chest x-ray was no evidence of thromboembolism patient is high risk for thoracentesis right now TSH level is satisfactory may end up scheduling him for a thoracentesis blood pressure elevated patient's blood pressure is all also elevated mild impairment of renal function Physician Review: Patient Assessed, Agree with Above Assessment and Plan
[2019-03-15] MEDS ORDERED: AMLODIPINE 10 MG TAB PO SCH (14:00)
[2019-03-15] MEDS: ALBUTEROL 2.5 MG/3 ML NEB SOL NEB PRN (15:20)
[2019-03-15] MEDS: COLLAGENASE 30 GM OINTMENT TOP SCH (16:50)
[2019-03-15] MEDS: Insulin Degludec [Tresiba Flextouch U-100] SQ SCH (21:07)
[2019-03-15] MEDS: DIVALPROEX ER 250 MG TAB PO SCH (21:08)
[2019-03-15] MEDS: VENLAFAXINE HCL XR 75 MG CAP PO SCH (21:09)
[2019-03-15] MEDS: DOXEPIN HCL 10 MG CAP PO SCH (21:09)
[2019-03-15] MEDS: ATORVASTATIN 10 MG TAB PO SCH (21:09)
[2019-03-15] MEDS: RISPERIDONE 0.25 MG TABLET PO SCH (21:17)
[2019-03-16] MEDS: IPRATROPIUM BROM 0.5MG/2.5ML NEB SCH ×2 (01:20→07:43)
[2019-03-16] MEDS: PANTOPRAZOLE 40MG TABLET PO SCH (06:00)
[2019-03-16] MEDS: LEVOTHYROXINE SOD 0.075 MG TAB PO SCH (06:00)
[2019-03-16] MEDS: INSULIN -REGULAR HUMAN 50 UNIT/0.5 ML ML SQ SCH (07:30)
[2019-03-16] MEDS: ARFORMOTEROL TARTRATE 15 MCG/2 ML VIAL.NEB NEB SCH (07:43)
--- NOTE | 2019-03-16 09:09 | P.DS ---
Admission Date: 03/12/19 Discharge Date: 03/16/19 Primary Care Provider: Levi Disposition: ROUTINE DISCHARGE Discharge Condition: GOOD Reason for Admission: Respiratory failure and right-sided pleural effusion - Problems (1) COPD exacerbation Current Visit: Yes Status: Acute (2) Depression Current Visit: Yes Status: Acute Qualifiers: Depression Type: major depressive disorder (3) HTN (hypertension) Current Visit: Yes Status: Acute Qualifiers: Hypertension type: essential hypertension Qualified Code(s): I10 - Essential (primary) hypertension (4) Diabetes 1.5, managed as type 2 Current Visit: Yes Status: Acute (5) CHF (congestive heart failure), NYHA class II Current Visit: Yes Status: Acute Qualifiers: Congestive heart failure type: unspecified Qualified Code(s): I50.9 - Heart failure, unspecified (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 He did not have the hose for his bipap and was not able to wear it at home. He became very short of breath and checked his oxygen. Was in the 75% per his home pulse oximeter. Tried increasing the oxygen from his nasal canula. However there was minimal improvement in his oxygen and pulse oximeter. Therefore he came to the ER. This is an appropriate response. He was given a breathing treatment, and oxygen was given. However he did not experience relief of his symptoms till he was started on a bipap. Therefore deemed prudent to keep him in house. Especially as he does not have his necessary supplies at home. Hospital Course: Patient was admitted for copd exacerbation. Now states he does not have a bipap machine at home. He did not have the oxygen hose. Was seen by Dr. Germain. The patient will have a non invasive vent set up by Dr. Germain. this will help his high co2. Will start him on xarelto and lasix for the pleural effusion. Have him follow up with myself and Dr. Germain. Thank you for allowing me to take part in the patients care. Vital Signs/Physical Exam: Temp Pulse Resp BP Pulse Ox 97.2 F 50 15 173/75 H 97 03/16/19 08:00 03/16/19 08:00 03/16/19 08:00 03/16/19 08:00 03/16/19 08:00 General: Alert, In no apparent distress HEENT: Atraumatic, PERRLA, EOMI Neck: Supple, JVD not distended Respiratory: Clear to auscultation bilaterally, Normal air movement Cardiovascular: Regular rate/rhythm, Normal S1 S2 Gastrointestinal: Normal bowel sounds, No tenderness Musculoskeletal: No tenderness Integumentary: No rashes Neurological: Normal speech, Normal tone, Normal affect Lymphatics: No axilla or inguinal lymphadenopathy Laboratory Data at Discharge: WBC 8.2 K/uL (4.3-10.9) 03/13/19 03:48 Hgb 12.6 g/dL (13.6-17.9) L 03/13/19 03:48 Hct 38.3 % (39.6-49.0) L 03/13/19 03:48 Plt Count 156 K/uL (152-406) 03/13/19 03:48 PT 10.4 SECONDS (9.5-12.5) 03/12/19 16:20 INR 0.88 03/12/19 16:20 Sodium 139 mmol/L (136-145) 03/15/19 08:17 Potassium 4.8 mmol/L (3.5-5.1) 03/15/19 08:17 BUN 31 mg/dL (7-18) H 03/15/19 08:17 Creatinine 1.20 mg/dL (0.55-1.3) 03/15/19 08:17 Glucose 113 mg/dL (74-106) H 03/15/19 08:17 Magnesium 2.4 mg/dL (1.8-2.4) 03/12/19 16:20 Total Bilirubin 0.2 mg/dL (0.2-1.0) 03/12/19 16:20 AST 15 U/L (15-37) 03/12/19 16:20 ALT 16 U/L (12-78) 03/12/19 16:20 Alkaline Phosphatase 75 U/L (45-117) 03/12/19 16:20 Troponin I < 0.02 ng/mL (0.0-0.045) 03/13/19 03:48 Home Medications: Albuterol Sulfate [Albuterol Sulfate 0.083% Neb Soln] 1 amp IH BID 03/12/19 Amiodarone HCl [Pacerone] 1 tab PO DAILY 03/12/19 Amlodipine Besylate 1 tab PO 1400 03/12/19 Aspirin 1 tab PO DAILY 03/12/19 Atorvastatin Calcium 1 tab PO BEDTIME 03/12/19 Divalproex Sodium [Divalproex Sodium ER] 1 tab PO BEDTIME 03/12/19 Doxepin HCl [Sinequan*] 1 tab PO BEDTIME 03/12/19 Furosemide 1 tab PO DAILY 03/12/19 Insulin Degludec [Tresiba Flextouch U-100] 60 units SQ BEDTIME 03/12/19 Levothyroxine [Synthroid*] 1 tab PO DAILY 03/12/19 Lisinopril [Prinivil*] 1 tab PO DAILY 03/12/19 Metoprolol Tartrate 1 tab PO Q8H 03/12/19 Sitagliptin Phosphate [Januvia*] 1 tab PO DAILY 03/12/19 Venlafaxine HCl [Venlafaxine HCl ER] 1 tab PO BEDTIME 03/12/19 Vitamin C 500 mg PO DAILY 03/12/19 Vitamin D3 1 tab PO DAILY 03/12/19 cloNIDine HCl [Clonidine HCl] 1 tab PO 1400 03/12/19 risperiDONE [Risperidone] 3 tab PO BEDTIME 03/12/19 Buspirone HCl [Buspar] 1 tab PO TID 03/13/19 Rivaroxaban [Xarelto] 20 mg PO DAILY 90 Days #90 tablet 03/16/19 New Medications: Rivaroxaban [Xarelto] 20 mg PO DAILY 90 Days #90 tablet Diet: AHA Activity: Ad linda Physician Review: Patient Assessed, Agree with Above Assessment and Plan Time spent managing pt's care (in minutes): 30
[2019-03-16] MEDS: VITAMIN D3 PO SCH (09:17)
[2019-03-16] MEDS: ASCORBIC ACID 500 MG TABLET PO SCH (09:18)
[2019-03-16] MEDS: LISINOPRIL 20 MG TAB PO SCH (09:18)
[2019-03-16] MEDS: SITAGLIPTIN PHOS 100 MG TAB PO SCH (09:18)
[2019-03-16] MEDS: BUSPIRONE HCL 5 MG TABLET PO SCH (09:18)
[2019-03-16] MEDS: AMIODARONE HCL 200 MG TAB PO SCH (09:19)
[2019-03-16] MEDS: FUROSEMIDE 40 MG TABLET PO SCH (09:19)
[2019-03-16] MEDS: METOPROLOL TAR 25 MG TAB PO SCH (09:19)
[2019-03-16] MEDS: ASPIRIN 81 MG CHEWABLE TABLET PO SCH (09:19)
[2019-03-16] MEDS: COLLAGENASE 30 GM OINTMENT TOP SCH (09:22)
--- NOTE | 2019-03-16 18:24 | PN ---
Patient was admitted to Dr. Sims on 03/12/2019. Dr. Cason has seen him for shortness of breath. To day, 03/16/2019, patient had an echocardiogram that showed decreased left ventricular compliance, nor mal ejection fraction. He has obviously acute exacerbation of chronic diastolic congestive heart nighat lure. Pleural effusion is likely not related to his congestive heart failure. He has diabetes and hy pertension. Pulmonary consultation is needed, possible thoracentesis is needed. I will discuss the case further with Dr. Sims. We will sign off his case for now. DELVIS/DAMARIS Voice ID: [id number] Report ID: [id number]
== END 2019-03-16 12:15 | disposition home or self-care (01) | DRG 190 ==
LOC: ER 14:36 → ERHOLD 19:47 → 4TH 21:15
PROVIDERS: ADMIT Internal Medicine; ATTEND Internal Medicine
DX: J44.1 Chronic obstructive pulmonary disease with (acute) exacerbation (principal); I50.33 Acute on chronic diastolic (congestive) heart failure; J96.22 Acute and chronic respiratory failure with hypercapnia; J96.21 Acute and chronic respiratory failure with hypoxia; J90 Pleural effusion, not elsewhere classified; F32.9 Major depressive disorder, single episode, unspecified; E11.621 Type 2 diabetes mellitus with foot ulcer; L97.519 Non-pressure chronic ulcer of other part of right foot with unspecified severity; I11.0 Hypertensive heart disease with heart failure; F17.290 Nicotine dependence, other tobacco product, uncomplicated; R91.1 Solitary pulmonary nodule; Z79.82 Long term (current) use of aspirin; Z79.4 Long term (current) use of insulin; Z88.5 Allergy status to narcotic agent
CPT/HCPCS: 36415; 71045; 71046; 71275; 76604; 80048; 80076; 81003; 81015; 82805; 82962; 83605; 83735; 83880; 84145; 84443; 84484; 85025; 85610; 93005; 93306; 94640; 94660; 94760; 96365; 96375; 97116; 97161; 99285; J0360; J1650; J1940; J2920; J2930; J3590; J7605; Q9967

== ENCOUNTER 2019-08-27 16:55 | Emergency (ER) | payer OTHER ==
--- OUTSIDE RECORDS SUMMARY | 2019-08-27 16:58 | XMS REPORT ---
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 Problem Chronic obstructive pulmonary J44.9 Active disease, unspecified COPD type Problem COPD (chronic obstructive pulmonary J44.9 Active disease) Problem Non-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 with other specified severity Problem Congestive heart failure, I50.9 Active unspecified HF chronicity, unspecified heart failure type Problem Type 2 diabetes mellitus without E11.9 Active complication, unspecified whether correction insulin use Problem Seasonal allergies J30.2 Active Problem Acquired hypothyroidism E03.9 Active Problem Depression with anxiety F41.8 Active Medications Medication Code Code Instructions Start End Date Status Dosage System Date Kirt Doll [facility] [id number] - In Vitro May 17, Active as directed 2019 Results No Known Results Summary Purpose [employer] Submission
--- OUTSIDE RECORDS SUMMARY | 2019-08-27 16:58 | XMS REPORT ---
[...] mellitus without E11.9 Active complication, unspecified whether fdc insulin use Problem Seasonal allergies J30.2 Active Problem Acquired hypothyroidism E03.9 Active Problem Depression with anxiety F41.8 Active Medications No Known Medications Results No Known Results Summary Purpose [employer] Submission
--- OUTSIDE RECORDS SUMMARY | 2019-08-27 16:58 | XMS REPORT ---
:1945 [facility] Providers Name Role Phone Jenna Orellana Provider Role Unavailable Allergies, Adverse Reactions, Alerts Substance Reaction Event Type codeine Info Not Available Drug Allergy Problems Problem Type Condition Code Onset Dates Condition Status Problem Essential (primary) hypertension I10 Active Problem Bipolar 1 disorder, depressed, full F31.76 Active remission Problem Hyperlipidemia, unspecified E78.5 Active hyperlipidemia type Problem Recurrent falls while walking R29.6 Active Assessment Acquired hypothyroidism E03.9 Active Problem Diabetes E11.9 Active Assessment Frequent falls R29.6 Active Assessment Bilateral leg weakness R29.898 Active Problem Frequent falls R29.6 Active Problem 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 Problem Chronic obstructive pulmonary J44.9 Active disease, unspecified COPD type Problem COPD (chronic obstructive pulmonary J44.9 Active disease) Problem Non-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 with other specified severity Assessment Type 2 diabetes mellitus without E11.9 Active complication, unspecified whether intermediate card tender insulin use Assessment Essential (primary) hypertension I10 Active Assessment Chronic obstructive pulmonary J44.9 Active disease, unspecified COPD type Assessment Congestive heart failure, I50.9 Active unspecified HF chronicity, unspecified heart failure type Problem Congestive heart failure, I50.9 Active unspecified HF chronicity, unspecified heart failure type Problem Type 2 diabetes mellitus without E11.9 Active complication, unspecified whether intermediate card tender insulin use Problem Seasonal allergies J30.2 Active Assessment Depression with anxiety F41.8 Active Problem Acquired hypothyroidism E03.9 Active Problem Depression with anxiety F41.8 Active Medications Medication Code Code Instructions Start End Status Dosage System Date Date Baclofen ND 64834438320 10 MG Oral Active TK 1 T PO Q 8 H PRN. Docusate Sodium ND 54276475746 100 MG Orally Active 2 capsule as Twice a day needed Vitamin C ND 67976782171 500 MG Orally Active 1 tablet Once a day Betaxolol HCl ND 50414650015 0.5 % Active 1 drop into Ophthalmic affected eye Twice a day Levothyroxine [facility] 62325526161 75 MCG Orally Active 1 tablet on Sodium Once a day an empty stomach in the morning Carvedilol [facility] 21249644561 3.125 MG Orally May 27, Active 1 tablet Twice a day 2018 Clonidine HCl [facility] 16647254334 0.1 mg Active TAKE 1 TABLET BY MOUTH TWICE DAILY Aspirin [facility] 97713107825 81 MG Orally Active 1 tablet Once a day Lisinopril [facility] 15018656107 20 Orally Twice Active 1 tablet a day Symbicort [facility] 41867358895 160-4.5 MCG/ACT Active inhale 2 Inhalation puffs po Twice a day bid. Lasix [facility] 09351571407 40 Active 40 MG PO DAILY Xarelto [facility] 51876123629 20 mg Active 20 MG PO DAILY Amlodipine [facility] 63996841439 5 mg Active TAKE 1 Besylate TABLET BY MOUTH DAILY Amiodarone HCl [facility] 38206538072 200 mg Active TAKE 1 TABLET BY MOUTH EVERY DAY. Glucometer test [facility] 90869130232 n/s twice a Active one strip strips day using the [employer] Met[employer] glucometer Venlafaxine HCl [facility] 47948257148 75 mg Active TAKE 1 TABLET BY MOUTH EVERY DAY WITH FOOD. Divalproex [facility] 61385651593 500 Orally 1 PO Active as directed Sodium ER QPM Trazodone HCl [facility] 57536260683 50 MG Oral Active TK 1 T PO QHS. Latanoprost [facility] 35752542266 0.005 % Active INT 1 GTT IN Ophthalmic OU QHS. Atorvastatin [facility] 63653318851 10 mg Active TAKE 1 Calcium TABLET BY MOUTH EVERY NIGHT AT BEDTIME Januvia [facility] 91293361973 100 mg Active TAKE 1 TABLET BY MOUTH DAILY Venlafaxine HCl [facility] 05480936586 75 MG Orally Active 1 capsule ER Once a day with food Tresiba [facility] 88683960674 100 UNIT/ML Active 70 units FlexTouch Subcutaneous daily Albuterol [facility] 14164281719 (2.5 MG/3ML) Aug 18, Active 3 ml as Sulfate 0.083% 2018 needed Inhalation Three times a day BD Pen Needle [facility] 36153325798 32G X 4 MM Active INJECT USING Disha U/F INSULIN D. Risperidone [facility] 00320150636 0.25 mg Active TAKE 3 TABLETS BY MOUTH ONCE A DAY. Lisinopril [facility] 60087275655 20 MG Orally Active 1 tablet Once a day Furosemide [facility] 85959681136 40 MG Orally Active 1 tablet Once a day BusPIRone HCl [facility] 24610805490 10 Oral Three Active 1 tablet times a day Results No Known Results Summary Purpose eClinicalWorks Submission
--- OUTSIDE RECORDS SUMMARY | 2019-08-27 16:58 | XMS REPORT ---
[...] right foot with other specified severity Assessment Essential (primary) hypertension I10 Active Problem Congestive heart failure, I50.9 Active unspecified HF chronicity, unspecified heart failure type Problem Type 2 diabetes mellitus without E11.9 Active complication, unspecified whether salesperson furniture insulin use Problem Seasonal allergies J30.2 Active Problem Acquired hypothyroidism E03.9 Active Problem Depression with anxiety F41.8 Active Medications No Known Medications Results No Known Results Summary Purpose eClinicalWorks Submission
--- OUTSIDE RECORDS SUMMARY | 2019-08-27 16:58 | XMS REPORT ---
[...] right foot with other specified severity Assessment Acquired hypothyroidism E03.9 Active Assessment Depression with anxiety F41.8 Active Assessment Type 2 diabetes mellitus without E11.9 Active complication, unspecified whether predatory animal exterminator insulin use Problem Congestive heart failure, I50.9 Active unspecified HF chronicity, unspecified heart failure type Problem Type 2 diabetes mellitus without E11.9 Active complication, unspecified whether prison insulin use Problem Seasonal allergies J30.2 Active Problem Acquired hypothyroidism E03.9 Active Problem Depression with anxiety F41.8 Active Medications Medication Code Code Instructions Start End Status Dosage System Date [facility] 73591313273 100 UNIT/ML Active 70 units FlexTouch Subcutaneous daily BusPIRone HCl [facility] 38840131056 10 Oral Three Active 1 tablet times a day Divalproex [facility] 16315657460 500 Orally 1 PO Active as directed Sodium ER QPM Levothyroxine [facility] 72185012608 75 MCG Orally Active 1 tablet on Sodium Once a day an empty stomach in the morning Results No Known Results Summary Purpose eClinicalWorks Submission
--- OUTSIDE RECORDS SUMMARY | 2019-08-27 16:58 | XMS REPORT ---
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 with other specified severity Problem Diabetes E11.9 Active Problem Recurrent falls while walking R29.6 Active Problem Chronic obstructive pulmonary J44.9 Active disease, unspecified COPD type Problem Bipolar 1 disorder, depressed, full F31.76 Active remission Problem COPD (chronic obstructive pulmonary J44.9 Active disease) Problem 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 Assessment Depression with anxiety F41.8 Active Assessment Recurrent falls while walking R29.6 Active Problem Congestive heart failure, I50.9 Active unspecified HF chronicity, unspecified heart failure type Problem Type 2 diabetes mellitus without E11.9 Active complication, unspecified whether intermediate accountant insulin use Assessment Congestive heart failure, I50.9 Active unspecified HF chronicity, unspecified heart failure type Problem Seasonal allergies J30.2 Active Problem Depression with anxiety F41.8 Active Medications Medication Code Code Instructions Start End Status Dosage System Date Date Lasix [facility] 75707887855 40 Active 40 MG PO DAILY Lisinopril [facility] 93210072425 20 Orally Twice Active 1 tablet a day Albuterol ND 27091491390 (2.5 MG/3ML) Dec , Active 3 ml as Sulfate 0.083% 2018 needed Inhalation Three times a day Lisinopril ND 29574199200 20 MG Orally Active 1 tablet Once a day Amlodipine ND 64906396125 5 mg Active TAKE 1 Besylate TABLET BY MOUTH DAILY Baclofen ND 71062877301 10 MG Oral Active TK 1 T PO Q 8 H PRN. Carvedilol [facility] 35742437316 3.125 MG Orally May 27, Active 1 tablet Twice a day [address] [facility] 34996515547 n/s twice a Active one strip strips day using the [employer] glucometer Furosemide ND 27362333251 40 MG Orally Active 1 tablet Once a day Atorvastatin [facility] 66042877186 10 mg Active TAKE 1 Calcium TABLET BY MOUTH EVERY NIGHT AT BEDTIME Amiodarone HCl [facility] 96687015281 200 mg Active TAKE 1 TABLET BY MOUTH EVERY DAY. Clonidine HCl [facility] 73638166285 0.1 mg Active TAKE 1 TABLET BY MOUTH TWICE DAILY Trazodone HCl [facility] 61665658254 50 MG Oral Active TK 1 T PO QHS. Docusate Sodium [facility] 16269187598 100 MG Orally Active 2 capsule as Twice a day needed Aspirin [facility] 86008878105 81 MG Orally Active 1 tablet Once a day Venlafaxine HCl [facility] 85341376289 75 mg Active TAKE 1 TABLET BY MOUTH EVERY DAY WITH FOOD. Levothyroxine [facility] 22895077199 75 MCG Orally Active 1 tablet on Sodium Once a day an empty stomach in the morning BD Pen Needle [facility] 36845568543 32G X 4 MM Active INJECT USING Disha U/F INSULIN D. Tresiba [facility] 89339044846 100 UNIT/ML Active 70 units FlexTouch Subcutaneous daily Symbicort [facility] 04903372789 160-4.5 MCG/ACT Active inhale 2 Inhalation puffs po Twice a day bid. Venlafaxine HCl [facility] 07488952236 75 MG Orally Active 1 capsule ER Once a day with food Latanoprost [facility] 81253000969 0.005 % Active INT 1 GTT IN Ophthalmic OU QHS. BusPIRone HCl [facility] 32232929171 10 Oral Three Active 1 tablet times a day Betaxolol HCl [facility] 75246679333 0.5 % Active 1 drop into Ophthalmic affected eye Twice a day Risperidone ND 58323428003 0.25 mg Active TAKE 3 TABLETS BY MOUTH ONCE A DAY. Vitamin C [facility] 82886377226 500 MG Orally Active 1 tablet Once a day Metoprolol [facility] 54837825970 25 mg Oct Active TAKE 1 Tartrate 24, TABLET BY 2019 MOUTH EVERY [address] [facility] 22732095627 100 mg Active TAKE 1 TABLET BY MOUTH DAILY Xarelto [facility] 37751718544 20 mg Active 20 MG PO DAILY Divalproex [facility] 01931155328 500 Orally 1 PO Active as directed Sodium ER QPM Results No Known Results Summary Purpose eClinicalWorks Submission
--- NOTE | 2019-08-27 18:06 | RAD REPORT ---
EXAM DESCRIPTION: Luis Eduardo Single View08/27/2019 5:58 pm CLINICAL HISTORY: Shortness of breath COMPARISON: March 2019 FINDINGS: Right hemithorax is hazy. Left lung appears clear The heart is mildly enlarged IMPRESSION: Right hemithorax is hazy probably representing a combination of small to moderate right pleural effusion and atelectasis/ pneumonia
[2019-08-27 18:08] LABS: Absolute Lymphocytes (CBC) 1.1 K/uL (0.7-4.9); Basophils % 0.8 % (0-1.3); Hematocrit 34.9 % (39.6-49.0); Lymphocytes % 11.9 % (15.3-44.8); MPV 9.9 fL (7.6-11.3); RBC Red Blood Cell Count 3.97 M/uL (4.33-5.43)
[2019-08-27 18:09] LABS: Protime INR 1.44
[2019-08-27 18:41] LABS: ALT/SGPT 16 U/L (12-78); AST/SGOT 18 U/L (15-37); Albumin 2.6 g/dL (3.4-5.0); Alkaline Phosphatase 77 U/L (45-117); BUN Blood Urea Nitrogen 29 mg/dL (7-18); Bicarbonate 40 mmol/L (21-32); Bilirubin Direct 0.1 mg/dL (0-0.2); Bilirubin Total 0.2 mg/dL (0.2-1.0); Glucose Level 202 mg/dL (74-106); Magnesium 2.1 mg/dL (1.8-2.4); NT PRO-BNP 349 pg/mL (<450); Potassium 4.9 mmol/L (3.5-5.1); Protein, Total 6.5 g/dL (6.4-8.2); Sodium Level 137 mmol/L (136-145); Troponin (Emerg Dept Use Only) < 0.02 ng/mL (0.0-0.045)
--- NOTE | 2019-08-27 19:04 | ER ---
Nurse's Notes [facility] Name: Michael Duncan Age: 74 yrs Sex: Male : 1945 Arrival Date: 08/27/2019 Time: 17:03 Bed 5 Private MD: Diagnosis: Weakness;Hypocalcemia Presentation: 08/27 17:03 Presenting complaint: EMS states: Shortness of breath and generalized weakness x 2 hb days. ABP 180s supine, 90s standing. SpO2 85-90%on 2LNC home O2. 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 18g LAC. Transition of care: patient was not received from another setting of care. Onset of symptoms was August 26, 2019. Risk Assessment: Do you want to hurt yourself or someone else? Patient reports no desire to harm self or others. Initial Sepsis Screen: Does the patient meet any 2 criteria? No. Patient's initial sepsis screen is negative. Does the patient have a suspected source of infection? No. Patient's initial sepsis screen is negative. Care prior to arrival: Medication(s) given: Albuterol Neb Atrovent Neb x 1. 17:03 Method Of Arrival: EMS: [facility] 17:03 Acuity: SHAZIA 2 hb Triage Assessment: 17:05 General: Appears in no apparent distress. comfortable, Behavior is cooperative, bp appropriate for age, anxious. Pain: Denies pain. EENT: No deficits noted. Neuro: No deficits noted. Cardiovascular: Rhythm is sinus rhythm. Respiratory: Reports shortness of breath Onset: The symptoms/episode began/occurred today, the patient has mild shortness of breath. GI: No signs and/or symptoms were reported involving the gastrointestinal system. : No signs and/or symptoms were reported regarding the genitourinary system. Derm: No deficits noted. Musculoskeletal: No deficits noted. Historical: - Allergies: 17:06 caffiene; hb 17:06 Codeine; hb - Home Meds: 17:21 clonidine HCl 0.1 mg Oral tab 1 tab 2 times per day [Active]; Januvia 100 mg oral tab 1 hb tab once daily [Active]; amiodarone 200 mg Oral tab 1 tab once daily [Active]; trazodone 50 mg Oral tab nightly [Active]; levothyroxine 75 mcg tab 1 tab once daily [Active]; metoprolol tartrate 25 mg Oral tab three times a day [Active]; amlodipine 5 mg tab 1 tab once daily [Active]; divalproex 500 mg oral Tb24 1 tab once daily [Active]; venlafaxine 75 mg oral cp24 1 cap once daily [Active]; furosemide 40 mg Oral tab 1 tab once daily [Active]; buspirone 10 mg Oral tab 1 tab 3 times per day [Active]; atorvastatin 10 mg oral tab 1 tab nightly [Active]; Risperdal 0.25 mg Oral tab 3 tabs nightly [Active]; Tresiba FlexTouch U-100 100 unit/mL (3 mL) subcutaneous inpn 70 unit nightly [Active]; brimonidine ophthalmic ophthalmic [Active]; Betaxolol Oral [Active]; lisinopril 20 mg Oral tab 1 tab once daily [Active]; Symbicort 160-4.5 mcg/actuation inhalation HFAA 2 puffs 2 times per day [Active]; Spiriva with [employer]iHaler 18 mcg inhalation CpDv 1 cap once daily [Active]; albuterol sulfate 2.5 mg /3 mL (0.083 %) Nebulizer nebu 3 times per day [Active]; Vitamin D Oral [Active]; Vitamin C Oral [Active]; Xarelto 20 mg oral tab 1 tab once daily [Active]; Tresiba FlexTouch U-100 100 unit/mL (3 mL) subcutaneous inpn [Active]; carvedilol oral oral [Active]; - PMHx: 17:21 Bipolar disorder; COPD; Diabetes - NIDDM; High Cholesterol; Hypertension; hb - Immunization history:: Adult Immunizations up to date. - Social history:: Smoking status: Patient/guardian denies using tobacco. - Ebola Screening: : No symptoms or risks identified at this time. Screenin:09 Abuse screen: Denies threats or abuse. Denies injuries from another. Nutritional hb screening: No deficits noted. Tuberculosis screening: No symptoms or risk factors identified. Fall Risk Total Carpio Fall Scale indicates Low Risk Score (25-44 pts). Fall prevention measures have been instituted. Side Rails Up X 2 Frequent Obs/Assesments occuring Family Present and informed to notify staff if they need to leave bedside As available Patient and Family Educated on Fall Prevention Program and strategies. Assessment: 17:10 General: SEE TRIAGE NOTE. Cardiovascular: Rhythm is sinus rhythm. Respiratory: Airway bp is patent Respiratory effort is even, unlabored, Breath sounds are coarse bilaterally. 18:28 Reassessment: ALL CURRENT ORDERS COMPLETED, RESULTS PENDING. bp 19:15 General: Appears in no apparent distress. comfortable, Behavior is calm, cooperative, rr5 appropriate for age. Pain: Denies pain. Neuro: Level of Consciousness is awake, alert, obeys commands, Oriented to person, place, time, situation. Cardiovascular: Capillary refill < 3 seconds Patient's skin is warm and dry. Respiratory: Airway is patent Respiratory effort is even, unlabored, Respiratory pattern is regular, symmetrical. GI: No signs and/or symptoms were reported involving the gastrointestinal system. : No signs and/or symptoms were reported regarding the genitourinary system. EENT: No signs and/or symptoms were reported regarding the EENT system. Derm: Skin is intact, Skin temperature is warm Bruising that is dark purple, on right arm and left arm. Musculoskeletal: Parent/caregiver report the patient having weakness in right leg and left leg. 19:15 Reassessment: ED provider talked to patient and family member explained the plan of rr5 care, with order to give calcium gluconate then discharge. 20:10 Reassessment: Patient appears in no apparent distress at this time. No changes from rr5 previously documented assessment. Patient is alert, oriented x 3, equal unlabored respirations, skin warm/dry/pink. 20:40 Reassessment: Patient appears in no apparent distress at this time. Patient is alert, rr5 oriented x 3, equal unlabored respirations, skin warm/dry/pink. discharge instruction given and explained without complaints made. assisted going to his car via wheelchair and with oxygen. Vital Signs: 17:06 BP 164 / 64; Pulse 64; Resp 20; Temp 98.5; Pulse Ox 84% on R/A; Pain 0/10; hb 17:10 Pulse Ox 93% on 3 lpm NC; hb 18:35 BP 162 / 98; Pulse 65; Resp 20; Pulse Ox 97% 4 lpm ; bp 19:15 BP 168 / 89; Pulse 85; Resp 21; Temp 98.4; Pulse Ox 97% on 2 lpm NC; rr5 20:40 BP 161 / 77; Pulse 79; Resp 19; Temp 98.5; Pulse Ox 99% on 2 lpm NC; rr5 ED Course: 17:03 Patient arrived in ED. hb 17:06 Triage completed. hb 17:06 Arm band placed on. hb 17:10 Patient has correct armband on for positive identification. Bed in low position. Call bp light in reach. Side rails up X2. Adult w/ patient. 17:10 Maintain EMS IV. Dressing intact. Good blood return noted. Site clean \T\ dry. Gauge \T\ bp site: 18G LEFT AC. 17:26 Chalino Vera MD is Attending Physician. kdr 17:34 Albert Aldrich, RN is Primary Nurse. bp 17:58 XRAY Chest (1 view) In Process Unspecified. EDMS 19:15 No provider procedures requiring assistance completed. IV discontinued, intact, rr5 bleeding controlled, No redness/swelling at site. Pressure dressing applied. Administered Medications: 19:32 Dru grams of (Calcium Gluconate 2 grams, NS 0.9% 200 ml) Route: IVPB; Infused Over: rr5 60 mins; Site: left forearm; Outcome: 19:01 Discharge ordered by . kdr 20:40 Discharged to home via wheelchair, with family, with oxygen rr5 20:40 Condition: stable 20:40 Discharge instructions given to patient, Instructed on discharge instructions, follow up and referral plans. Demonstrated understanding of instructions, follow-up care. 20:44 Patient left the ED. rr5 Signatures: Dispatcher [employer] EDMS Chalino Vera MD MD kdr Nirali Duran RN RN hb Albert Aldrich, ALTAF RN Kris Llamas, ALTAF RN rr5
--- NOTE | 2019-08-27 19:05 | EDPHYS ---
Physician Documentation [facility] Name: Michael Duncan Age: 74 yrs Sex: Male : 1945 Arrival Date: 08/27/2019 Time: 17:03 Bed 5 Private MD: ED Physician Chalino Vera HPI: 08/27 18:07 This 74 yrs old Male presents to ER via EMS with complaints of General kdr Weakness. 18:07 The patient has had increasing weakness over the last few months and today, he nearly kdr fell to the ground. His sample wrapper states that she had to run to get a wheel chair to get under him because his legs were wobbly. He has not fallen and has no focal c/o at this time. Laying in bed, the patient is fully alert and able to vigorously raise his legs and sit up without any significant limitation. Onset: The symptoms/episode began/occurred gradually, at an unknown time. Severity of symptoms: At their worst the symptoms were moderate in the emergency department the symptoms are unchanged. It is unknown whether or not the patient has had similar symptoms in the past. The patient has been recently seen by a physician:. patient and concerned that he is getting too weak to manage at home.. Historical: - Allergies: 17:06 caffiene; hb 17:06 Codeine; hb - Home Meds: 17:21 clonidine HCl 0.1 mg Oral tab 1 tab 2 times per day [Active]; Januvia 100 mg oral tab 1 hb tab once daily [Active]; amiodarone 200 mg Oral tab 1 tab once daily [Active]; trazodone 50 mg Oral tab nightly [Active]; levothyroxine 75 mcg tab 1 tab once daily [Active]; metoprolol tartrate 25 mg Oral tab three times a day [Active]; amlodipine 5 mg tab 1 tab once daily [Active]; divalproex 500 mg oral Tb24 1 tab once daily [Active]; venlafaxine 75 mg oral cp24 1 cap once daily [Active]; furosemide 40 mg Oral tab 1 tab once daily [Active]; buspirone 10 mg Oral tab 1 tab 3 times per day [Active]; atorvastatin 10 mg oral tab 1 tab nightly [Active]; Risperdal 0.25 mg Oral tab 3 tabs nightly [Active]; Tresiba FlexTouch U-100 100 unit/mL (3 mL) subcutaneous inpn 70 unit nightly [Active]; brimonidine ophthalmic ophthalmic [Active]; Betaxolol Oral [Active]; lisinopril 20 mg Oral tab 1 tab once daily [Active]; Symbicort 160-4.5 mcg/actuation inhalation HFAA 2 puffs 2 times per day [Active]; Spiriva with HandiHaler 18 mcg inhalation CpDv 1 cap once daily [Active]; albuterol sulfate 2.5 mg /3 mL (0.083 %) Nebulizer nebu 3 times per day [Active]; Vitamin D Oral [Active]; Vitamin C Oral [Active]; Xarelto 20 mg oral tab 1 tab once daily [Active]; Tresiba FlexTouch U-100 100 unit/mL (3 mL) subcutaneous inpn [Active]; carvedilol oral oral [Active]; - PMHx: 17:21 Bipolar disorder; COPD; Diabetes - NIDDM; High Cholesterol; Hypertension; hb - Immunization history:: Adult Immunizations up to date. - Social history:: Smoking status: Patient/guardian denies using tobacco. - Ebola Screening: : No symptoms or risks identified at this time. ROS: 18:07 Constitutional: Negative for fever, chills, and weight loss, Eyes: Negative for injury, kdr pain, redness, and discharge, Neck: Negative for injury, pain, and swelling, Cardiovascular: Negative for chest pain, palpitations, and edema, Respiratory: Negative for shortness of breath, cough, wheezing, and pleuritic chest pain, Abdomen/GI: Negative for abdominal pain, nausea, vomiting, diarrhea, and constipation, Back: Negative for injury and pain, : Negative for injury, bleeding, discharge, and swelling, MS/Extremity: Negative for injury and deformity, Skin: Negative for injury, rash, and discoloration, Psych: Negative for depression, anxiety, suicide ideation, homicidal ideation, and hallucinations, Allergy/Immunology: Negative for hives, rash, and allergies, Endocrine: Negative for neck swelling, polydipsia, polyuria, polyphagia, and marked weight changes, Hematologic/Lymphatic: Negative for swollen nodes, abnormal bleeding, and unusual bruising. 18:07 Neuro: Positive for weakness, Negative for altered mental status, dizziness, gait disturbance, headache, hearing loss, loss of consciousness, numbness, seizure activity, speech changes, syncope, near syncope, tingling, tinnitus, tremor, visual changes. Exam: 18:07 Constitutional: This is a well developed, well nourished patient who is awake, alert, kdr and in no acute distress. Head/Face: Normocephalic, atraumatic. Eyes: Pupils equal round and reactive to light, extra-ocular motions intact. Lids and lashes normal. Conjunctiva and sclera are non-icteric and not injected. Cornea within normal limits. Periorbital areas with no swelling, redness, or edema. Neck: Trachea midline, no thyromegaly or masses palpated, and no cervical lymphadenopathy. Supple, full range of motion without nuchal rigidity, or vertebral point tenderness. No Meningismus. Chest/axilla: Normal chest wall appearance and motion. Nontender with no deformity. No lesions are appreciated. Cardiovascular: Regular rate and rhythm with a normal S1 and S2. No gallops, murmurs, or rubs. Normal PMI, no JVD. No pulse deficits. Respiratory: Lungs have equal breath sounds bilaterally, clear to auscultation and percussion. No rales, rhonchi or wheezes noted. No increased work of breathing, no retractions or nasal flaring. Abdomen/GI: Soft, obese, non-tender, with normal bowel sounds. No distension or tympany. No guarding or rebound. No evidence of tenderness throughout. Back: No spinal tenderness. No costovertebral tenderness. Full range of motion. Skin: Warm, dry with normal turgor. Normal color with no rashes, no lesions, and no evidence of cellulitis. MS/ Extremity: Pulses equal, no cyanosis. Neurovascular intact. Full, normal range of motion. Neuro: Awake and alert, GCS 15, oriented to person, place, time, and situation. Cranial nerves II-XII grossly intact. Motor strength 5/5 in all extremities. Sensory grossly intact. . Psych: Awake, alert, with orientation to person, place and time. Behavior, mood, and affect are within normal limits. Vital Signs: 17:06 BP 164 / 64; Pulse 64; Resp 20; Temp 98.5; Pulse Ox 84% on R/A; Pain 0/10; hb 17:10 Pulse Ox 93% on 3 lpm NC; hb 18:35 BP 162 / 98; Pulse 65; Resp 20; Pulse Ox 97% 4 lpm ; bp 19:15 BP 168 / 89; Pulse 85; Resp 21; Temp 98.4; Pulse Ox 97% on 2 lpm NC; rr5 20:40 BP 161 / 77; Pulse 79; Resp 19; Temp 98.5; Pulse Ox 99% on 2 lpm NC; rr5 MDM: 19:01 Patient medically screened. kdr 19:02 Data reviewed: vital signs, nurses notes, lab test result(s). Counseling: I had a kdr detailed discussion with the patient and/or guardian regarding: the historical points, exam findings, and any diagnostic results supporting the discharge/admit diagnosis, lab results, radiology results, the need for outpatient follow up. 08/27 17:26 Order name: Basic Metabolic Panel; Complete Time: 18:55 kdr 08/27 17:26 Order name: CBC with Diff; Complete Time: 18:55 kdr 08/27 17:26 Order name: LFT's; Complete Time: 18:55 kdr 08/27 17:26 Order name: Magnesium; Complete Time: 18:55 kdr 08/27 17:26 Order name: NT PRO-BNP; Complete Time: 18:55 kdr 08/27 17:26 Order name: PT-INR; Complete Time: 18:55 kdr 08/27 17:26 Order name: Troponin (emerg Dept Use Only); Complete Time: 18:55 kdr 08/27 17:26 Order name: XRAY Chest (1 view); Complete Time: 18:55 kdr 08/27 17:26 Order name: EKG; Complete Time: 17:28 kdr 08/27 17:26 Order name: Cardiac monitoring; Complete Time: 17:33 kdr 08/27 17:26 Order name: EKG - Nurse/Tech; Complete Time: 17:40 kdr 08/27 17:26 Order name: IV Saline Lock; Complete Time: 17:40 kdr 08/27 17:26 Order name: Labs collected and sent; Complete Time: 17:50 kdr 08/27 17:26 Order name: O2 Per Protocol; Complete Time: 17:33 kdr 08/27 17:26 Order name: O2 Sat Monitoring; Complete Time: 17:33 kdr Administered Medications: 19:32 Dru grams of (Calcium Gluconate 2 grams, NS 0.9% 200 ml) Route: IVPB; Infused Over: rr5 60 mins; Site: left forearm; Disposition: 08/27/19 19:01 Discharged to Home. Impression: Weakness, Hypocalcemia. - Condition is Stable. - Discharge Instructions: Weakness, [id number], Hypocalcemia, Adult, Chronic Kidney Disease, Adult, [id number]. - Medication Reconciliation Form, Thank You Letter form. - Follow up: Private Physician; When: 2 - 3 days; Reason: If symptoms return, Further diagnostic work-up, Recheck today's complaints, Continuance of care, Re-evaluation by your physician. - Problem is new. - Symptoms have improved. Signatures: Dispatcher [employer] EDChalino Nunn MD MD kdr Nirali Duran RN RN Kris Mead RN RN rr5 Corrections: (The following items were deleted from the chart) 20:44 19:01 08/27/2019 19:01 Discharged to Home. Impression: Weakness; Hypocalcemia. rr5 Condition is Stable. Forms are Medication Reconciliation Form, Thank You Letter, Antibiotic Education, Prescription Opioid Use. Follow up: Private Physician; When: 2 - 3 days; Reason: If symptoms return, Further diagnostic work-up, Recheck today's complaints, Continuance of care, Re-evaluation by your physician. Problem is new. Symptoms have improved. kdr
[2019-08-27] MEDS ORDERED: CALCIUM GLUCONATE 1 GM IVPB 2 GM/100 ML BAG IV ONE (19:25)
[2019-08-27 20:50] VITALS: TEMP 98.5
[2019-08-27 20:53] VITALS: BP 162/98; O2SAT 97
--- NOTE | 2019-08-29 11:47 | EKG ---
Test Date: 2019-08-27 Test Time: 17:40:30 Animal Science Instructor: LIZZ MEASUREMENT RESULTS: Intervals: Rate: 66 MI: 184 QRSD: 82 QT: 426 QTc: 446 [place]: P: 57 MI: 184 QRS: 51 T: 46 INTERPRETIVE STATEMENTS: Normal sinus rhythm Normal ECG Compared to ECG 03/14/2019 08:58:34 Sinus bradycardia no longer present Electronically Signed On 08-29-19 11:42:30 DEBURRING TECHNICIAN by Kade Garcia
== END 2019-08-27 20:44 | disposition home or self-care (01) ==
LOC: ER 16:55
DX: E83.51 Hypocalcemia (principal); I10 Essential (primary) hypertension; E78.00 Pure hypercholesterolemia, unspecified; E11.9 Type 2 diabetes mellitus without complications; J44.9 Chronic obstructive pulmonary disease, unspecified; F31.9 Bipolar disorder, unspecified; Z79.01 Long term (current) use of anticoagulants; Z79.4 Long term (current) use of insulin; Z88.5 Allergy status to narcotic agent; Z91.018 Allergy to other foods
CPT/HCPCS: 93005; 85025; 80048; 36415; 83735; 85610; 80076; 84484; 83880; 71045; 96374; 99284; J0610

== ENCOUNTER 2019-09-16 13:26 | Emergency (ER) | payer OTHER ==
--- OUTSIDE RECORDS SUMMARY | 2019-09-16 13:29 | XMS REPORT ---
:1945 Demographics Address 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 insulin use Assessment Congestive heart failure, I50.9 Active unspecified HF chronicity, unspecified heart failure type Problem Seasonal allergies J30.2 Active Problem Depression with anxiety F41.8 Active Medications Medication Code Code Instructions Start End Status Dosage System Date Date Lasix [facility] [id number] 40 Active 40 MG PO DAILY Lisinopril [facility] 40933112020 20 Orally Twice Active 1 tablet a day Albuterol ND 79081930673 (2.5 MG/3ML) Dec , Active 3 ml as Sulfate 0.083% 2018 needed Inhalation Three times a day Lisinopril ND 38945210536 20 MG Orally Active 1 tablet Once a day Amlodipine ND 38337811149 5 mg Active TAKE 1 Besylate TABLET BY MOUTH DAILY Baclof[place] ND 95877954214 10 MG Oral Active TK 1 T PO Q 8 H PRN. Carvedilol [facility] 06693278594 3.125 MG Orally May 27, Active 1 tablet Twice a day 2018 Glucometer test [facility] 48151814440 n/s twice a Active one strip strips day using the [employer] [place] glucometer Furosemide ND 29347104556 40 MG Orally Active 1 tablet Once a day Atorvastatin [facility] 43766472805 10 mg Active TAKE 1 Calcium TABLET BY MOUTH EVERY NIGHT AT BEDTIME Amiodarone HCl [facility] 11025727028 200 mg Active TAKE 1 TABLET BY MOUTH EVERY DAY. Clonidine HCl [facility] 90337942202 0.1 mg Active TAKE 1 TABLET BY MOUTH TWICE DAILY Trazodone HCl [facility] 56791691417 50 MG Oral Active TK 1 T PO QHS. Docusate Sodium [facility] 96931446362 100 MG Orally Active 2 capsule as Twice a day needed Aspirin [facility] 59454485327 81 MG Orally Active 1 tablet Once a day Venlafaxine HCl [facility] 55111075657 75 mg Active TAKE 1 TABLET BY MOUTH EVERY DAY WITH FOOD. Levothyroxine [facility] 38708650568 75 MCG Orally Active 1 tablet on Sodium Once a day an empty stomach in the morning BD Pen Needle [facility] 39062313822 32G X 4 MM Active INJECT USING Disha U/F INSULIN D. Tresiba [facility] 33008022114 100 UNIT/ML Active 70 units FlexTouch Subcutaneous daily Symbicort [facility] 11514220973 160-4.5 MCG/ACT Active inhale 2 Inhalation puffs po Twice a day bid. Venlafaxine HCl [facility] 41240841981 75 MG Orally Active 1 capsule ER Once a day with food Latanoprost [facility] 39738565635 0.005 % Active INT 1 GTT IN Ophthalmic OU QHS. BusPIRone HCl [facility] 82960718594 10 Oral Three Active 1 tablet times a day Betaxolol HCl [facility] 16196393254 0.5 % Active 1 drop into Ophthalmic affected eye Twice a day Risperidone ND 95459228292 0.25 mg Active TAKE 3 TABLETS BY MOUTH ONCE A DAY. Vitamin C [facility] 34352787271 500 MG Orally Active 1 tablet Once a day Metoprolol [facility] 66702205304 25 mg Oct Active TAKE 1 Tartrate 24, TABLET BY 2019 MOUTH EVERY 8 HOURS Januvia [facility] 20151791131 100 mg Active TAKE 1 TABLET BY MOUTH DAILY Xarelto [facility] 38213787447 20 mg Active 20 MG PO DAILY Divalproex [facility] 34991933262 500 Orally 1 PO Active as directed Sodium ER QPM Results No Known Results Summary Purpose eClinicalWorks Submission
--- OUTSIDE RECORDS SUMMARY | 2019-09-16 13:29 | XMS REPORT ---
:1945 Author [facility] Team Providers Name Role [...] mellitus without E11.9 Active complication, unspecified whether manager terminal insulin use Assessment Essential (primary) hypertension I10 Active Assessment Chronic obstructive pulmonary J44.9 Active disease, unspecified COPD type Assessment Congestive heart failure, I50.9 Active unspecified HF chronicity, unspecified heart failure type Problem Congestive heart failure, I50.9 Active unspecified HF chronicity, unspecified heart failure type Problem Type 2 diabetes mellitus without E11.9 Active complication, unspecified whether manager terminal insulin use Problem Seasonal allergies J30.2 Active Assessment Depression with anxiety F41.8 Active Problem Acquired hypothyroidism E03.9 Active Problem Depression with anxiety F41.8 Active Medications Medication Code Code Instructions Start End Status Dosage System Date Date Baclofen ND 11384674162 10 MG Oral Active TK 1 T PO Q 8 H PRN. Docusate Sodium ND 39842624427 100 MG Orally Active 2 capsule as Twice a day needed Vitamin C ND 62625848637 500 MG Orally Active 1 tablet Once a day Betaxolol HCl ND 77653087667 0.5 % Active 1 drop into Ophthalmic affected eye Twice a day Levothyroxine [facility] 97466343017 75 MCG Orally Active 1 tablet on Sodium Once a day an empty stomach in the morning Carvedilol [facility] 71124590535 3.125 MG Orally May 27, Active 1 tablet Twice a day 2018 Clonidine HCl [facility] 32494667740 0.1 mg Active TAKE 1 TABLET BY MOUTH TWICE DAILY Aspirin [facility] 09592723132 81 MG Orally Active 1 tablet Once a day Lisinopril [facility] 92942560074 20 Orally Twice Active 1 tablet a day Symbicort [facility] 20338913548 160-4.5 MCG/ACT Active inhale 2 Inhalation puffs po Twice a day bid. Lasix [facility] 45029346217 40 Active 40 MG PO DAILY Xarelto [facility] 83066349534 20 mg Active 20 MG PO DAILY Amlodipine [facility] NAM[facility] 10111478375 5 mg Active TAKE 1 Besylate TABLET BY MOUTH DAILY Amiodarone HCl [facility]AM[facility] 25311494363 200 mg Active TAKE 1 TABLET BY MOUTH EVERY DAY. Glucometer test [facility] NAM[facility] 20061016011 n/s twice a Active one strip strips day using the [employer] Met[employer] glucometer Venlafaxine HCl [facility]AM[facility] 38796012261 75 mg Active TAKE 1 TABLET BY MOUTH EVERY DAY WITH FOOD. Divalproex [facility]AM[facility] 90148878438 500 Orally 1 PO Active as directed Sodium ER QPM Trazodone HCl [facility]AM[facility] 41405787007 50 MG Oral Active TK 1 T PO QHS. Latanoprost [facility] 26475418637 0.005 % Active INT 1 GTT IN Ophthalmic OU QHS. Atorvastatin [facility]AM[facility] 51165526199 10 mg Active TAKE 1 Calcium TABLET BY MOUTH EVERY NIGHT AT BEDTIME Januvia [facility] 04112233115 100 mg Active TAKE 1 TABLET BY MOUTH DAILY Venlafaxine HCl [facility]AM[facility] 49864741967 75 MG Orally Active 1 capsule ER Once a day with food Tresiba [facility]AM[facility] 70448408196 100 UNIT/ML Active 70 units FlexTouch Subcutaneous daily Albuterol [facility]AM[facility] 06757686141 (2.5 MG/3ML) Aug 18, Active 3 ml as Sulfate 0.083% 2018 needed Inhalation Three times a day BD Pen Needle [facility] 21823465922 32G X 4 MM Active INJECT USING Disha U/F INSULIN D. Risperidone [facility]AM[facility] 04250824737 0.25 mg Active TAKE 3 TABLETS BY MOUTH ONCE A DAY. Lisinopril [facility] NAMED [facility] 75541591609 20 MG Orally Active 1 tablet Once a day Furosemide [facility] NAM[facility] 02622065015 40 MG Orally Active 1 tablet Once a day BusPIRone HCl [facility] NAM[facility] 77829368905 10 Oral Three Active 1 tablet times a day Results No Known Results Summary Purpose eClinicalWorks Submission
--- OUTSIDE RECORDS SUMMARY | 2019-09-16 13:29 | XMS REPORT ---
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
--- OUTSIDE RECORDS SUMMARY | 2019-09-16 13:29 | XMS REPORT ---
[...] mellitus without E11.9 Active complication, unspecified whether care home insulin use Problem Seasonal allergies J30.2 Active Problem Acquired hypothyroidism E03.9 Active Problem Depression with anxiety F41.8 Active Medications Medication Code Code Instructions Start End Date Status Dosage System Date Kirt Doll [facility] [id number] - In Vitro May 17, Active as directed 2019 Results No Known Results Summary Purpose eClinicalWorks Submission
--- OUTSIDE RECORDS SUMMARY | 2019-09-16 13:29 | XMS REPORT ---
[...] without E11.9 Active complication, unspecified whether intermediate insulin use Problem Seasonal allergies J30.2 Active Problem Acquired hypothyroidism E03.9 Active Problem Depression with anxiety F41.8 Active Medications No Known Medications Results No Known Results Summary Purpose eClinicalWorks Submission
--- OUTSIDE RECORDS SUMMARY | 2019-09-16 13:29 | XMS REPORT ---
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 card tender insulin use Problem Congestive heart failure, I50.9 Active unspecified HF chronicity, unspecified heart failure type Problem Type 2 diabetes mellitus without E11.9 Active complication, unspecified whether longterm insulin use Problem Seasonal allergies J30.2 Active Problem Acquired hypothyroidism E03.9 Active Problem Depression with anxiety F41.8 Active Medications Medication Code Code Instructions Start End Status Dosage System Date [facility] 42779840040 100 UNIT/ML Active 70 units FlexTouch Subcutaneous daily BusPIRone HCl [facility] 00061999382 10 Oral Three Active 1 tablet times a day Divalproex [facility] 03258938288 500 Orally 1 PO Active as directed Sodium ER QPM Levothyroxine [facility] 14857209166 75 MCG Orally Active 1 tablet on Sodium Once a day an empty stomach in the morning Results No Known Results Summary Purpose eClinicalWorks Submission
--- OUTSIDE RECORDS SUMMARY | 2019-09-16 13:29 | XMS REPORT ---
:1945 Author Organization [facility] Care Team Providers Name Role Phone Jenna Orellana Provider Role Unavailable Allergies, Adverse Reactions, Alerts Substance Reaction Event Type codeine Info Not Available Drug Allergy Problems Problem Type Condition Code Onset Dates Condition Status Assessment Follow-up exam Z09 Active Problem Chronic obstructive pulmonary J44.9 Active disease, unspecified COPD type Assessment Chronic kidney disease, unspecified N18.9 Active CKD stage Problem 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 Assessment Hypocalcemia E83.51 Active Problem Non-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 with other specified severity Problem Diabetes E11.9 Active Problem COPD (chronic obstructive pulmonary J44.9 Active disease) Problem Generalized muscle weakness M62.81 Active Problem Generalized weakness R53.1 Active Assessment Neurodegenerative disorder G31.9 Active Problem Hypocalcemia E83.51 Active Assessment Generalized weakness R53.1 Active Problem Frequent falls R29.6 Active Problem Recurrent falls while walking R29.6 Active Problem Chronic kidney disease, unspecified N18.9 Active CKD stage Problem Neurodegenerative disorder G31.9 Active Problem Type 2 diabetes mellitus without E11.9 Active complication, unspecified whether half-way insulin use Problem Seasonal allergies J30.2 Active Problem Acquired hypothyroidism E03.9 Active Problem Congestive heart failure, I50.9 Active unspecified HF chronicity, unspecified heart failure type Problem Hyperlipidemia, unspecified E78.5 Active hyperlipidemia type Problem Bipolar 1 disorder, depressed, full F31.76 Active remission Problem Depression with anxiety F41.8 Active Problem Essential (primary) hypertension I10 Active Medications Medication Code Code Instructions Start End Status Dosage System Date Date Lisinopril [facility] 18072662693 20 MG Orally Active 1 tablet Once a day Aspirin [facility] 57899487379 81 MG Orally Active 1 tablet Once a day Betaxolol HCl [facility] 44452100228 0.5 % Active 1 drop into Ophthalmic affected eye Twice a day Lisinopril [facility] 47347357987 20 Orally Twice Active 1 tablet a day Clonidine HCl ND 61821654947 0.1 mg Active TAKE 1 TABLET BY MOUTH TWICE DAILY Atorvastatin [facility] 80256800164 10 mg Active TAKE 1 Calcium TABLET BY MOUTH EVERY NIGHT AT BEDTIME Januvia [facility] 72624628097 100 mg Active TAKE 1 TABLET BY MOUTH DAILY Venlafaxine HCl [facility] 36837521148 75 MG Orally Active 1 capsule ER Once a day with food Latanoprost [facility] 84112772921 0.005 % Active INT 1 GTT IN Ophthalmic OU QHS. Albuterol [facility] 35282070719 (2.5 MG/3ML) Aug 18, Active 3 ml as Sulfate 0.083% 2018 needed Inhalation Three times a day Trazodone HCl [facility] 06805548297 50 MG Oral Active TK 1 T PO QHS. Carvedilol [facility] 57457731374 3.125 MG Orally May 27, Active 1 tablet Twice a day 2018 BusPIRone HCl [facility] 28478823988 10 Oral Three Active 1 tablet times a day Levothyroxine ND 91743589389 75 MCG Orally Active 1 tablet on Sodium Once a day an empty stomach in the morning OneTouch Verio [facility] 17822448737 - In Vitro May 17, Active as directed 2018 Venlafaxine HCl [facility] 03903881502 75 mg Active TAKE 1 TABLET BY MOUTH EVERY DAY WITH FOOD. Furosemide ND 43508323661 40 MG Orally Active 1 tablet Once a day BD Pen Needle [facility] 35817203477 32G X 4 MM Active INJECT USING Disha U/F INSULIN D. Divalproex [facility] 64323596102 500 Orally 1 PO Active as directed Sodium ER QPM Glucometer test [facility] 14459955028 n/s twice a Active one strip strips day using the Chatwala Metric glucometer Vitamin C [facility] 96429217956 500 MG Orally Active 1 tablet Once a day Docusate Sodium ND 58541514409 100 MG Orally Active 2 capsule as Twice a day needed Xarelto [facility] 81705458495 20 mg Active 20 MG PO DAILY Baclofen ND 23713622835 10 MG Oral Active TK 1 T PO Q 8 H PRN. Lasix [facility] 60859447641 40 Active 40 MG PO DAILY Tresiba [facility] 25123981108 100 UNIT/ML Active 70 units FlexTouch Subcutaneous daily Amiodarone HCl [facility] 20840744734 200 mg Active TAKE 1 TABLET BY MOUTH EVERY DAY. Risperidone [facility] 74073608248 0.25 mg Active TAKE 3 TABLETS BY MOUTH ONCE A DAY. Symbicort [facility] 01623487894 160-4.5 MCG/ACT Active inhale 2 Inhalation puffs po Twice a day bid. Amlodipine [facility] 93870964725 5 mg Active TAKE 1 Besylate TABLET BY MOUTH DAILY Results No Known Results Summary Purpose [employer] Submission
--- NOTE | 2019-09-16 13:54 | RAD REPORT ---
EXAM DESCRIPTION: RAD - Chest Single View - 09/16/2019 1:47 pm CLINICAL HISTORY: COPD Chest pain. COMPARISON: Chest Single View dated 08/27/2019; Chest Single View dated 03/15/2019; Chest Single View dated 03/12/2019; Chest Pa And Lat (2 Views) dated 10/13/2018 FINDINGS: Portable technique limits examination quality. Right pleural and parenchymal opacification is present, however appears mildly improved relative to p revious most recent study. Mild interstitial pulmonary edema is present. The heart is moderately enla rged in size. No displaced fractures.
--- NOTE | 2019-09-16 14:32 | RAD REPORT ---
EXAM DESCRIPTION: CT - Abdomen Pelvis Wo Contrast - 09/16/2019 2:21 pm CLINICAL HISTORY: Abdominal pain. fall, on blood thinners, fall, right flank and RUQ ecchymos COMPARISON: No comparisons TECHNIQUE: CT imaging of the abdomen and pelvis was performed without contrast. Solid organ, bowel a nd vascular assessment is limited due to lack of IV and oral contrast. All CT scans are performed using dose optimization technique as appropriate and may include automated exposure control or mA/KV adjustment according to patient size. FINDINGS: Small right pleural effusion is noted.Mild atelectasis is present in both posterior lung b ases cut greater on the right. The liver demonstrates no focal mass or biliary dilatation. The spleen, pancreas, adrenal glands are within normal limits. Right kidney is atrophic.Small calculi are present inferior calyx left kidney. Infrarenal abdominal aortic aneurysm is seen with endograft in place. Aneurysm sac measures 7.6 cm in AP dimension. No bowel obstruction, free air, free fluid or abscess. The appendix is not identified as a discrete structure, however, no secondary findings of appendicitis are identified. Moderate lower lumbar degenerative changes. IMPRESSION: No acute intra-abdominal or pelvic findings. Small right pleural effusion. A limited non-contrast examination was performed as detailed.
[2019-09-16 14:58] LABS: Absolute Lymphocytes (CBC) 0.9 K/uL (0.7-4.9); Basophils % 0.5 % (0-1.3); Lymphocytes % 13.8 % (15.3-44.8); MPV 9.5 fL (7.6-11.3); RBC Red Blood Cell Count 3.53 M/uL (4.33-5.43)
[2019-09-16 15:05] LABS: Protime INR 1.58
[2019-09-16] MEDS ORDERED: METHYLPREDNISOLONE 125 MG INJ ONE (15:07)
[2019-09-16] MEDS ORDERED: ALBUTEROL 2.5 MG/3 ML NEB SOL ONE (15:07)
[2019-09-16] MEDS ORDERED: IPRATROPIUM BROM 0.5MG/2.5ML ONE (15:08)
[2019-09-16 15:19] LABS: ALT/SGPT 15 U/L (12-78); AST/SGOT 12 U/L (15-37); Albumin 2.4 g/dL (3.4-5.0); Alkaline Phosphatase 58 U/L (45-117); BUN Blood Urea Nitrogen 29 mg/dL (7-18); Bilirubin Direct 0.1 mg/dL (0-0.2); Bilirubin Total 0.4 mg/dL (0.2-1.0); Glucose Level 213 mg/dL (74-106); Potassium 4.7 mmol/L (3.5-5.1); Protein, Total 6.3 g/dL (6.4-8.2); Sodium Level 139 mmol/L (136-145)
[2019-09-16] MEDS ORDERED: LEVALBUTEROL 1.25 MG/3 ML NEB ONE (15:20)
[2019-09-16 15:21] LABS: Bicarbonate > 45 mmol/L (21-32)
--- NOTE | 2019-09-16 15:42 | ER ---
Nurse's Notes [facility] Name: Michael Duncan Age: 74 yrs Sex: Male : 1945 Arrival Date: 09/16/2019 Time: 13:29 Bed 7 Private MD: Diagnosis: Chronic obstructive pulmonary disease, unspecified;Weakness;Contusion of abdominal wall Presentation: 09/16 13:43 Presenting complaint: EMS states: pt has had shorntness of breath for 1-2 days, sg worsening today. pt family report the pt to have intermittent tremors, as well as having a slide from a wheelchair onto his bottom and hitting his abdomen on a table or counter, pt reports soreness in the buttocks and abdominal area at this time. pt lives at home with his . Transition of care: patient was not received from another setting of care. Onset of symptoms was September 16, 2019. Risk Assessment: Do you want to hurt yourself or someone else? Patient reports no desire to harm self or others. Initial Sepsis Screen: Does the patient meet any 2 criteria? No. Patient's initial sepsis screen is negative. Does the patient have a suspected source of infection? No. Patient's initial sepsis screen is negative. Care prior to arrival: Medication(s) given: Albuterol Neb x 3, Atrovent Neb x 1. 13:43 Method Of Arrival: EMS: [facility] sg 13:43 Acuity: SHAZIA 3 sg Historical: - Allergies: 13:46 caffiene; sg 13:46 Codeine; sg - PMHx: 13:46 Bipolar disorder; COPD; Diabetes - NIDDM; High Cholesterol; Hypertension; sg - Immunization history:: Adult Immunizations not up to date. - Social history:: Smoking status: Patient/guardian denies using tobacco. - Ebola Screening: : Patient negative for fever greater than or equal to 101.5 degrees Fahrenheit, and additional compatible Ebola Virus Disease symptoms Patient denies exposure to infectious person Patient denies travel to an Ebola-affected area in the 21 days before illness onset No symptoms or risks identified at this time. - Family history:: not pertinent. - Hospitalizations: : No recent hospitalization is reported. Screenin:50 Abuse screen: Denies threats or abuse. Denies injuries from another. Nutritional sg screening: No deficits noted. Tuberculosis screening: No symptoms or risk factors identified. Never had TB. Fall Risk None identified. Assessment: 13:50 General: Appears in no apparent distress. obese, unkempt, well developed, well sg nourished, Behavior is cooperative, appropriate for age, anxious, quiet. Pain: Denies pain. Neuro: Level of Consciousness is awake, alert, obeys commands, Oriented to person, place, time. Cardiovascular: Patient's skin is warm and dry. Chest pain is denied. Respiratory: Airway is patent Respiratory effort is even, unlabored, Respiratory pattern is regular, symmetrical. GI: No signs and/or symptoms were reported involving the gastrointestinal system. : urinary incontinence, pt reports he normally wears a brief. EENT: No signs and/or symptoms were reported regarding the EENT system. Derm: Skin is dry, Skin is pale, Skin temperature is warm. Musculoskeletal: Circulation, motion, and sensation intact. Range of motion: intact in all extremities. 14:20 Reassessment: Patient appears in no apparent distress at this time. pt cleaned of sg urinary incontinence, placed into a new brief, linens bagged for carry to pt home with family. 16:01 Reassessment: Patient appears in no apparent distress at this time. at bedside sg updating pt on POC and results and discharge, pt family concerned that the pt needs 24 hr care, and an admission to a half-way. Vital Signs: 13:43 Pulse 72; Resp 24; Temp 97.2; Pulse Ox 96% on 100% Nebulizer Mask; sg 13:43 BP 129 / 63; sg ED Course: 13:29 Patient arrived in ED. rn 13:29 Sam Arguelles MD is Attending Physician. rn 13:30 Jalen Townsend, ALTAF is Primary Nurse. sg 13:42 Arm band placed on. sg 13:44 Triage completed. sg 13:48 XRAY Chest (1 view) In Process Unspecified. EDMS 13:50 Patient has correct armband on for positive identification. Bed in low position. Call sg light in reach. Side rails up X2. ortho rn on. Pulse ox on. NIBP on. Warm blanket given. Head of bed elevated. 14:20 CT Abd/Pelvis - Without Contrast In Process Unspecified. EDMS 14:40 Initial lab(s) drawn, by me, sent to lab. Inserted saline lock: 22 gauge in right sg forearm, using aseptic technique. Blood collected. 16:15 No provider procedures requiring assistance completed. IV discontinued, intact, sg bleeding controlled, No redness/swelling at site. Pressure dressing applied. Administered Medications: 15:14 Drug: Xopenex (3) 1.25 mg Route: Inhalation; sg 15:15 Drug: SOLU-Medrol 125 mg Route: IVP; Site: right forearm; sg Outcome: 15:41 Discharge ordered by MD. rn 16:15 Discharged to home ambulatory, with family. sg 16:15 Condition: good 16:15 Discharge instructions given to patient, family, grommet man, Instructed on discharge instructions, follow up and referral plans. safety practices, Demonstrated understanding of instructions, follow-up care. 16:19 Patient left the ED. sg Signatures: Dispatcher [employer] EDMS Jalen Townsend RN RN sg Sam Arguelles MD MD house rn: (The following items were deleted from the chart) 16:22 13:43 Presenting complaint: EMS states: pt has had shorntness of breath for 1-2 days, sg worsening today. NH staff report the pt have intermittent tremors, as well as having a slide from a wheelchair onto his bottom, pt reports soreness in the buttocks at this time sg 16:22 13:43 Transition of care: patient was received from another setting of care (long-term care facility), sg
--- NOTE | 2019-09-16 15:42 | EDPHYS ---
Physician Documentation [facility] Name: Michael Duncan Age: 74 yrs Sex: Male : 1945 Arrival Date: 09/16/2019 Time: 13:29 Bed 7 Private MD: ED Physician Sam Arguelles HPI: 09/16 15:25 This 74 yrs old Male presents to ER via EMS with complaints of weakness, rn falls, COPD. 15:25 911 called for a few issues, mainly generalized weakness and recurrent falls, also rn noticed that oxygen had been going low at times. Has COPD, on oxygen, uses nasal cannula but oxygen doesn't stay steady until uses mask. Patient denies chest pain. No worsening sob/cough/fever. Has been falling more frequently due to legs giving out. Is in the middle of being placed in shelter for these reasons by PCP. . Onset: The symptoms/episode began/occurred at an unknown time. Severity of symptoms: At their worst the symptoms were mild in the emergency department the symptoms have improved. The patient has experienced similar episodes in the past. The patient has been recently seen by a physician:. Historical: - Allergies: 13:46 caffiene; sg 13:46 Codeine; sg - PMHx: 13:46 Bipolar disorder; COPD; Diabetes - NIDDM; High Cholesterol; Hypertension; sg - Immunization history:: Adult Immunizations not up to date. - Social history:: Smoking status: Patient/guardian denies using tobacco. - Ebola Screening: : Patient negative for fever greater than or equal to 101.5 degrees Fahrenheit, and additional compatible Ebola Virus Disease symptoms Patient denies exposure to infectious person Patient denies travel to an Ebola-affected area in the 21 days before illness onset No symptoms or risks identified at this time. - Family history:: not pertinent. - Hospitalizations: : No recent hospitalization is reported. ROS: 15:25 Constitutional: Negative for fever, chills, and weight loss, Eyes: Negative for injury, rn pain, redness, and discharge, Neck: Negative for injury, pain, and swelling, Cardiovascular: Negative for chest pain, palpitations, and edema, Respiratory: Negative for pleuritic chest pain, Abdomen/GI: Negative for abdominal pain, nausea, vomiting, diarrhea, and constipation, Back: Negative for injury and pain, : Negative for injury, bleeding, discharge, and swelling, MS/Extremity: Negative for injury and deformity, Skin: + bruising Neuro: Negative for headache, numbness, tingling, and seizure. Exam: 15:25 Constitutional: Morbidly obese male, no acute distress, speaking full sentences rn Head/Face: Normocephalic, atraumatic. ENT: dry MM Neck: Trachea midline, no thyromegaly or masses palpated, and no cervical lymphadenopathy. Supple, full range of motion without nuchal rigidity, or vertebral point tenderness. No Meningismus. Chest/axilla: Normal chest wall appearance and motion. Nontender with no deformity. No lesions are appreciated. Cardiovascular: Regular rate and rhythm. No pulse deficits. Respiratory: + faint exp wheezing, no retractions Abdomen/GI: soft, non-tender, + RUQ ecchymosis with underlying hematoma approx 2 cm, no rebound MS/ Extremity: Pulses equal, no cyanosis. Neurovascular intact. Full, normal range of motion. Equal circumference. Neuro: Awake and alert, GCS 15, oriented to person, place, time, and situation. Cranial nerves II-XII grossly intact. Motor strength 4/5 in all extremities. Sensory grossly intact. Vital Signs: 13:43 Pulse 72; Resp 24; Temp 97.2; Pulse Ox 96% on 100% Nebulizer Mask; sg 13:43 BP 129 / 63; sg MDM: 13:29 Patient medically screened. rn 15:38 Differential Diagnosis dehydration, deconditioning, obesity, COPD. Data reviewed: vital rn signs, nurses notes, lab test result(s), EKG, radiologic studies, CT scan, plain films, and as a result, I will discharge patient. Counseling: I had a detailed discussion with the patient and/or guardian regarding: the historical points, exam findings, and any diagnostic results supporting the discharge/admit diagnosis, lab results, radiology results, the need for outpatient follow up, to return to the emergency department if symptoms worsen or persist or if there are any questions or concerns that arise at home. Special discussion: I discussed with the patient/guardian in detail that at this point there is no indication for admission to the hospital. It is understood, however, that if the symptoms persist or worsen the patient needs to return immediately for re-evaluation. ED course: No acute findings in chest or CT abdomen for trauma or infection. Seems mouth breathing and not getting oxygen through nasal cannula because of this. Already being evaluated and in middle of being placed for shelter. Will defer rest to pcp unless acute changes. No indication for emergent admission or hospitalization.. 09/16 13:30 Order name: CBC with Diff; Complete Time: 15:23 rn 09/16 13:30 Order name: Basic Metabolic Panel; Complete Time: 15:23 rn 09/16 13:30 Order name: Protime (+inr); Complete Time: 15: rn 09/16 13:30 Order name: Ptt, Activated; Complete Time: 15:23 rn 09/16 13:30 Order name: LFT's; Complete Time: 15:23 rn 09/16 13:30 Order name: XRAY Chest (1 view); Complete Time: 14:42 rn 09/16 13:30 Order name: IV Start; Complete Time: 14:46 rn 09/16 13:30 Order name: EKG - Nurse/Tech; Complete Time: 14:46 rn 09/16 13:32 Order name: CT Abd/Pelvis - Without Contrast; Complete Time: 14:42 rn Administered Medications: 15:14 Drug: Xopenex (3) 1.25 mg Route: Inhalation; sg 15:15 Drug: SOLU-Medrol 125 mg Route: IVP; Site: right forearm; sg Disposition: 09/16/19 15:41 Discharged to Home. Impression: Chronic obstructive pulmonary disease, unspecified, Weakness, Contusion of abdominal wall. - Condition is Stable. - Discharge Instructions: Chronic Obstructive Pulmonary Disease, Weakness. - Medication Reconciliation Form, Thank You Letter, Antibiotic Education, Prescription Opioid Use form. - Follow up: Private Physician; When: As needed; Reason: Recheck today's complaints, Re-evaluation by your physician. - Problem is new. - Symptoms have improved. Signatures: Dispatcher [employer] EDJalen Marques RN RN sg Sam Arguelles MD MD carpet yarn winder operator: (The following items were deleted from the chart) 16:19 15:41 09/16/2019 15:41 Discharged to Home. Impression: Chronic obstructive pulmonary sg disease, unspecified; Weakness; Contusion of abdominal wall. Condition is Stable. Forms are Medication Reconciliation Form, Thank You Letter, Antibiotic Education, Prescription Opioid Use. Follow up: Private Physician; When: As needed; Reason: Recheck today's complaints, Re-evaluation by your physician. Problem is new. Symptoms have improved. rn
[2019-09-16 16:28] VITALS: BP 129/63; TEMP 97.2; O2SAT 96
== END 2019-09-16 16:19 | disposition home or self-care (01) ==
LOC: ER 13:26
DX: J44.9 Chronic obstructive pulmonary disease, unspecified (principal); S30.1XXA Contusion of abdominal wall, initial encounter; W18.30XA Fall on same level, unspecified, initial encounter; Y93.9 Activity, unspecified; Z88.6 Allergy status to analgesic agent; Z91.018 Allergy to other foods
CPT/HCPCS: 85025; 80048; 36415; 85610; 80076; 85730; 74176; 71045; 96374; 99285; J2930

== ENCOUNTER 2020-03-24 13:37 | Inpatient (IN) | payer OTHER ==
--- OUTSIDE RECORDS SUMMARY | 2020-03-24 13:43 | XMS REPORT | Continuity of Care Document ---
:1945 Author Organization [employer] Care Team Providers Name Role Phone [employer] Unavailable Un available Problems Problem Status Onset Classification Date Comments Sourc e Date Reported ABD PAIN Active [facility] 017 ABD PAIN . Active [facility] [address] [facility] 017 LEG WEAKNESS Active [facility] BILATERAL 016 WEAKNESS [facility] 016 Discharge 06/02/2016 [facility] Diagnosis[facility] Fatigue 016 Discharge 06/02/2016 [facility] ast Diagnosis: Acute 016 renal insufficiency Discharge 06/02/2016 [facility] Diagnosis: 016 Dehydration AMS Active [facility] 015 SOB [address] [facility] 014 Anxiety (finding) Active Problem 06/13/2017 [facility] Arthritis Active Problem 06/13/2017 (disorder) [facility] Bipolar (qualifier Resolved Problem 06/13/2017 value) [facility] Acute congestive Resolved Problem 06/13/2017 heart failure [facility], (disorder) [facility]patient [facility] Chronic obstructive Resolved Problem 06/13/2017 lung disease [facility] (disorder) [facility] Depressive disorder Active Problem 06/13/2017 (disorder) [facility] Diabetes mellitus Active Problem 06/13/2017 H (disorder) [facility] Gastroesophageal Active Problem 06/13/2017 reflux disease [facility], (disorder) [facility] Glaucoma (disorder) Active Problem 06/13/2017 [facility] 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, 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[facility], arterial (disorder) [facility] Narcosis (finding) Active Problem 06/13/2017 [facility] Schizophrenia Resolved Problem 06/13/2017 (disorder) [facility] Aortic aneurysm Resolved Problem 06/13/2017 [facility] (disorder) Hyperlipidemia Active Problem 06/13/2017 [facility] (disorder) Peptic ulcer with Resolved Problem 06/13/2017 [facility] hemorrhage (disorder) CHR AIRWAY OBSTRUCT Active [facility] NEC ALTERED MENTAL Active [facility] STATUS UNSPECIFIED OPEN Active [facility] WOUND, RIGHT FOOT, SUBS NON-PRS CHRONIC Active [facility] ULCER OTH PRT RIGHT FOOT TYPE 2 DIABETES W Active [facility] DIABETIC PERIPHERAL AN TINEA UNGUIUM Active [facility] TYPE 2 DIABETES Active [facility] MELLITUS WITH DIABETIC P NON-PRS CHRONIC Active [facility] ULCER OTH PRT R FOOT STREET CORNS AND Active [facility] st CALLOSITIES MUSCLE WEAKNESS Active [facility] (GENERALIZED) CHOLECYSTITIS, Active [facility] UNSPECIFIED Medications Medication Details Route Status Patient Ordering Order Source Instructions Provider Date fluconazole 100 mg 200 mg = 2 Active oral tablet tab, PO, 2016 [facility] [id number], 0 Refill(s) Saline Flush 0.9% 10 mL, Route: Inactive IVP, Drug 2016 [facility] Form: INJ, Dosing Weight 118.682, kg, Q8H, Start date: 06/10/17 16:00:00 CDT, Duration: 30 day, Stop date: 07/10/17 8:00:00 CLINICAL REVIEWER Lidocaine Notes: Inactive Hydrochloride 10 Preservative 2016 [facility] MG/ML Injectable free. (Same Solution as: Xylocaine MPF) Saline Flush 0.9% Notes: (Same Inactive as: 2016 [facility] Posiflush) Lidocaine 5 mL, Route: Inactive Hydrochloride 10 INTRADERM, 2016 [facility] MG/ML Injectable Dosing Weight Solution 118.682, kg, ONCALL, Start date: 06/10/17 14:00:00 CDT, Duration: 30 day, Stop date: 07/10/17 12:59:00 CLINICAL REVIEWER BD Normal Saline Notes: (Same Inactive H Flush as: 2016 [facility] Posiflush) Saline Flush 0.9% Notes: (Same Inactive as: 2016 [facility] Posiflush) Lidocaine Notes: Inactive [facility] Hydrochloride 10 Preservative 2016 [facility] MG/ML Injectable free. (Same Solution as: Xylocaine MPF) Saline Flush 0.9% Notes: (Same Inactive as: BD 2016 [facility] Posiflush) Protonix Notes: Tablet No Longer should not be Active 2016 [facility] chewed or crushed. (Same as: Protonix) Miralax Notes: No Longer Dissolve in 8 Active 2016 [facility] oz of water or juice. (Same as: Miralax) Maalox Advanced Notes: No Longer Regular Strength (aluminum Active 2016 [facility] SUSP hydroxide-magn esium hyd-simethicon e [phone] ml 30 ml ud [place]) Betaxolol 2.5 2 drp, Route: Inactive MG/ML Ophthalmic BOTH EYES, 2016 [facility] Suspension BID, Drug [Betoptic S] form: SUSP, Start date: 06/05/17 17:00:00 CDT, Duration: 30 day, Stop date: 07/05/17 9:00:00 CDT Zosyn Notes: (Same No Longer as: Zosyn) Active 2016 [facility] Dosing based on Piperacillin component MEDICATION WASTE Product Size: 3375 mg Product Wasted: ___ mg Hydralazine Notes: (Same No Longer as: Active 2016 [facility] Apresoline) Push over 5 minutes Diflucan Notes: (Same No Longer as: Diflucan) Active 2016 [facility] Lasix Notes: (Same Inactive as: Lasix) 2017 [facility] Diflucan Notes: (Same No Longer as: Diflucan) Active 2016 [facility] Do not refrigerate Flagyl Notes: (Same No Longer as: Flagyl) Active 2016 [facility] Avoid alcohol. Lovenox 30 mg, Route: Inactive SUB-Q, Drug 2016 [facility] form: INJ, [id number], Dosing Weight 118.682, kg, For CrCl <30mL/min, Start date: 05/30/17 13:00:00 CDT, Duration: 30 day, Stop date: 06/28/17 13:00:00 CDT Buspirone Notes: (Same No Longer As: BuSpar) Active 2016 [facility] Acetaminophen Notes: Do not No Longer exceed 4 Active 2016 [facility] gm/day. (Same as: Tylenol) Dulcolax Laxative Notes: (Same No Longer As: Dulcolax, Active 2016 [facility] Bisco-Lax) timolol ophthalmic Notes: (Same No Longer As: Timoptic, Active 2016 [facility] Betimol) magnesium citrate Notes: (Same Inactive 58.2 MG/ML Oral as: Citrate of 2017 [facility] Solution Magnesia) Concentration: 1.745 gm / 30 mL Albuterol 0.833 Notes: (Same No Longer H MG/ML / as: Duoneb) Active 2016 [facility] Ipratropium Wilson 0.167 MG/ML Inhalant Solution Budesonide 0.25 Notes: (Same No Longer H MG/ML Inhalant As: Pulmicort) Active 2016 [facility] Solution [Pulmicort] Budesonide 0.25 Notes: (Same No Longer H MG/ML Inhalant As: Pulmicort) Active 2016 [facility] Solution [Pulmicort] Dextrose 50% in 50 mL, Route: No Longer Water IV IVP, Start Active 2016 [facility] date: 05/24/17 19:24:00 CDT, Stop date: 05/24/17 19:24:00 CDT Dextrose 25 gm, Route: Inactive IVPB, ONCE, 2016 [facility] Dosing Weight 118.682, kg, Start date: 05/24/17 18:34:00 CDT, Stop date: 05/24/17 18:34:00 CDT Insulin regular 15 unit, Inactive Route: IV, 2016 [facility] ONCE, Dosing Weight 118.682, kg, Priority: NOW, Start date: 05/24/17 18:23:00 CDT, Stop date: 05/24/17 18:23:00 CDT sodium chloride 1,000 mL, No Longer 0.9% 1000 ml INJ Rate: 75 Active [facility] 1,000 mL ml/hr, Infuse over: 13.3 hr, Route: IV, Dosing Weight 118.682 kg, Total Volume: 1,000, Start date: 05/24/17 12:41:00 CDT, Stop date: 06/23/17 12:40:00 CDT influenza virus Notes: (Same No Longer H vaccine, as: Fluzone Active 2016 [facility] inactivated Quadrivalent, Fluarix Quadrivalent) For 3 years of age and older (0.5 mL IM) Shake well before use Januvia Notes: (Same No Longer as: Januvia) Active 2016 [facility] omega-3 Notes: (Same No Longer polyunsaturated as: MaxEPA, Active 2016 [facility] fatty acids [place] 3 fish oil ) Non-Formulary Drug Vitamin D3 Notes: Same as No Longer : Vitamin D3 Active 2016 [facility] venlafaxine Notes: (Same No Longer As: Effexor) Active 2016 [facility] Albuterol 0.833 Notes: (Same No Longer H MG/ML / as: Duoneb) Active 2016 [facility] Ipratropium Wilson 0.167 MG/ML Inhalant Solution [DuoNeb] tiotropium 0.018 Notes: (Same Inactive H MG/ACTUAT Inhalant As: Spiriva). 2016 [facility] Powder [Spiriva] Thyroxine Notes: Take 1 No Longer hour before or Active 2016 [facility] 2 hours after meal; Enteral feeds may interefere with the absorption of this medication.([facility] as:Levothroid, Synthroid) Trazodone Notes: (Same No Longer As: Desyrel) Active 2016 [facility] Risperidone Notes: (Same No Longer as: Risperdal) Active 2016 [facility] latanoprost 0.05 Notes: Keep No Longer H MG/ML Ophthalmic refrigerated. Active 2016 [facility] Solution (Same as:Xalatan) Opened bottle may be stored at room temperature for 6 weeks Insulin Glargine Notes: (Same No Longer 100 UNT/ML as: Lantus) Do Active 2016 [facility] Injectable not hold Solution [Lantus] insulin without contacting prescriber WASTE: F/P - Black; E - Municipal Trash Bin "single patient use only" Fenofibrate Notes: (Same No Longer as: Tricor) Active 2016 [facility] 24 HR Divalproex Notes: (Same No Longer Sodium 500 MG as: Depakote Active 2016 [facility] Extended Release [facility]) Once Tablet daily dosing; indicated for migraines. Divalproex sodium extended-relea se tab. Do not chew or crush. "Do Not Crush" Ipratropium Notes: SEE RT No Longer DOCUMENTATION Active 2016 [facility] (Same as:Atrovent) Zosyn + sodium Notes: (Same No Longer chloride 0.9% INJ as: Zosyn) Active [facility] 100 mL Dosing based on Piperacillin component MEDICATION WASTE Product Size: 3375 mg Product Wasted: ___ mg Brimonidine Notes: (Same No Longer tartrate 1.5 MG/ML As: Alphagan) Active 2016 [facility] Ophthalmic Solution Betaxolol 2.5 2 drp, Route: No Longer MG/ML Ophthalmic BOTH EYES, Active [facility] Suspension BID, Drug [Betoptic S] form: SUSP, Start date: 05/23/17 17:00:00 CDT, Duration: 30 day, Stop date: 06/22/17 9:00:00 CDT Symbicort 160/4.5 Notes: (Same No Longer inhalation aerosol as: Symbicort) Active 2016 [facility] with adapter WASTE: Aerosol - Return to Pharmacy Zosyn 2.25 gm, Inactive Route: IV, 2016 [facility] Q8H, Dosing Weight 109.545, kg, Start date: 05/23/17 16:00:00 CDT, Duration: 30 day, Stop date: 06/22/17 8:00:00 CDT, ABX Indication: Intra-abdomina l Infection metoprolol Notes: (Same No Longer tartrate as: Lopressor) Active 2016 [facility] Zosyn 2.25 gm, Inactive Route: IVPB, 2016 [facility] Drug form: PDR/INJ, [id number], Dosing Weight 118.682, kg, Start date: 05/23/17 13:00:00 CDT, Duration: 10 day, Stop date: 06/02/17 5:00:00 CDT, ABX Indication: Intra-abdomina l Infection Buspirone Notes: (Same No Longer As: BuSpar) Active 2016 [facility] Aspirin Notes: Do not No Longer crush or chew. Active 2016 [facility] (Same As: Ecotrin) Amlodipine Notes: (Same No Longer as: Norvasc) Active 2016 [facility] Amiodarone Notes: (Same No Longer as: Cordarone) Active 2016 [facility] Alprazolam Notes: With No Longer food or milk Active 2016 [facility] (Same as: Xanax) Insulin Lispro 60 units) No Longer WASTE: F/P - Active 2016 [facility] Black; E - Municipal Trash Bin Stable for 28 days at room temperature. Expires in days from Date Dextrose 50% 12.5 gm, 25 No Longer Syringe mL, Route: Active 2016 [facility] IVP, Drug Form: INJ, Dosing Weight 118.682, kg, PRN, PRN Blood Glucose Results, Start date: 05/23/17 12:40:00 CDT, Duration: 30 day, Stop date: 06/22/17 12:39:00 CDT Glucagon 1 mg, Route: No Longer IM, Drug form: Active 2016 [facility] PDR/INJ, PRN, Dosing Weight 118.682, kg, PRN Blood Glucose Results, Start date: 05/23/17 12:40:00 CDT, Duration: 30 day, Stop date: 06/22/17 12:39:00 CDT Baclofen Notes: (Same No Longer As: Lioresal) Active 2016 [facility] Aspirin 81 MG 81 mg = 1 tab, No Longer 05/23/ H Chewable Tablet PO, Daily, Active 2016 [facility] tab, 0 Refill(s) 24 HR Divalproex 500 mg = 1 Active Sodium 500 MG tab, PO, 2016 [facility] Extended Release Bedtime, # 30 Tablet tab, 0 Refill(s) Zosyn + sodium Notes: (Same Inactive chloride 0.9% INJ as: Zosyn) 2016 [facility] 100 mL Dosing based on Piperacillin component MEDICATION WASTE Product Size: 3375 mg Product Wasted: ___ mg Zosyn + sodium Notes: (Same Inactive chloride 0.9% INJ as: Zosyn) 2016 [facility] 100 mL Dosing based on Piperacillin component MEDICATION WASTE Product Size: 3375 mg Product Wasted: ___ mg Morphine 2 mg, 1 mL, No Longer Route: IVP, Active 2016 [facility] Drug form: SOLN, Q4H, Dosing Weight 109.545, kg, PRN Pain Score 7-10, Priority: STAT, Start date: 05/23/17 9:57:00 CDT, Stop date: 06/22/17 9:56:00 CDT Zofran Notes: (Same No Longer as: Zofran) Active 2016 [facility] MEDICATION WASTE Product Size: 4 mg Product Wasted: ___ mg Morphine 4 mg, Route: Inactive IVP, ONCE, 2016 [facility] Dosing Weight 109.545, kg, Priority: STAT, Start date: 05/23/17 9:27:00 CDT, Stop date: 05/23/17 9:27:00 CDT Omnipaque 300 45 mL/min, Inactive injectable STAT, Start 2016 [facility] solution date: 05/23/17 6:50:00 CDT, Duration: 1 doses or times Morphine Notes: (Same Inactive as:MORPhine 2016 [facility] Sulfate) Saline Flush 0.9% Notes: (Same No Longer as: BD Active 2016 [facility] Posiflush) tiotropium 0.018 Notes: (Same No Longer MG/ACTUAT Inhalant As: Spiriva). Active 2015 [facility] Powder [Spiriva] One-A-Day Men 50 1 tab, Route: No Longer Plus PO, Dosing Active 2015 [facility] Weight 109.545, kg, Daily, Start date: 07/29/16 9:00:00 CLINICAL REVIEWER, Duration: 30 day, Stop date: 08/27/16 9:00:00 CLINICAL REVIEWER Aspirin 81 mg, Route: No Longer PO, Daily, Active 2015 [facility] Dosing Weight 109.545, kg, Start date: 07/29/16 9:00:00 CLINICAL REVIEWER, Duration: 30 day, Stop date: 08/27/16 9:00:00 CLINICAL REVIEWER Levemir FlexPen Notes: Same as No Longer Levemir Do not Active 2015 [facility] hold insulin without contacting prescriber WASTE: F/P - Black; E - Municipal Trash Bin "single patient use only" Trazodone Notes: (Same No Longer As: Desyrel) Active 2015 [facility] Risperidone Notes: (Same No Longer as: Risperdal) Active 2015 [facility] latanoprost 0.05 Notes: Keep No Longer H MG/ML Ophthalmic refrigerated. Active [facility] Solution (Same as:Xalatan) Insulin Glargine 30 unit, Inactive 100 UNT/ML Route: SUB-Q, 2015 [facility] Injectable Drug form: Solution [Lantus] SOLN, Bedtime, Dosing Weight 109.545, kg, Start date: 07/28/16 21:00:00 CLINICAL REVIEWER, Duration: 30 day, Stop date: 08/26/16 21:00:00 CLINICAL REVIEWER Docusate Sodium Notes: (Same No Longer H 100 MG Oral as: Colace) Active 2015 [facility] t Capsule (Do Not Crush) Brimonidine Notes: (Same No Longer tartrate 1.5 MG/ML As: Alphagan) Active 2015 [facility] Ophthalmic Solution Betaxolol 2.5 2 drp, Route: Inactive MG/ML Ophthalmic BOTH EYES, 2015 [facility] Suspension BID, Drug [Betoptic S] form: SUSP, Start date: 07/28/16 17:00:00 CLINICAL REVIEWER, Duration: 30 day, Stop date: 08/27/16 9:00:00 CLINICAL REVIEWER timolol ophthalmic Notes: (Same No Longer As: Timoptic, Active 2015 [facility] Betimol) Buspirone Notes: (Same No Longer As: BuSpar) Active 2015 [facility] Ipratropium 500 microgram, Inactive Route: NEB, 2015 [facility] QID, Dosing Weight 109.545, kg, Start date: 07/28/16 13:00:00 CLINICAL REVIEWER, Duration: 30 day, Stop date: 08/27/16 9:00:00 CLINICAL REVIEWER Alprazolam 0.5 mg, Route: Inactive PO, TID, 2015 [facility] Dosing Weight 109.545, kg, Start date: 07/28/16 13:00:00 CLINICAL REVIEWER, Duration: 30 day, Stop date: 08/27/16 9:00:00 CLINICAL REVIEWER Thyroxine Notes: Take 1 No Longer hour before or Active 2015 2 hours after meal; Enteral feeds may interefere with the absorption of this medication.([facility] as:Levothroid, Synthroid) multivitamin with Notes: Give No Longer minerals with food. Active 2015 [facility] (Same As: Stress 600 with Zinc) WASTE: F/P - Black; E - Municipal Trash Bin omega-3 Notes: (Same No Longer polyunsaturated as: [place], Active 2015 [facility] fatty acids formally named [place]) "Do Not Crush" Lisinopril Notes: (Same No Longer as: Prinivil, Active 2015 [facility] Zestril) metoprolol Notes: (Same No Longer tartrate as: Lopressor) Active 2015 [place] [facility] Furosemide Notes: (Same No Longer as: Lasix) Active 2015 [facility] May cause GI upset. Give with food or milk. Fenofibrate Notes: (Same No Longer as: Tricor) Active 2015 [facility] Vitamin D3 Notes: Same as No Longer : Vitamin D3 Active 2015 [facility] Vitamin C Notes: (Same No Longer as: Vitamin C) Active 2015 [facility] Amlodipine Notes: (Same No Longer as: Norvasc) Active 2015 [facility] Amiodarone Notes: (Same No Longer as: Cordarone) Active 2015 [facility] venlafaxine Notes: (Same No Longer As: Effexor) Active 2015 [facility] Symbicort 160/4.5 Notes: (Same No Longer inhalation aerosol as: Symbicort) Active 2015 [facility] with adapter WASTE: Aerosol - Return to Pharmacy Insulin, Aspart, Notes: Roll in No Longer Human palms of hands Active 2015 [facility] gently; Do not shake vigorously. (Same as: NovoLOG) "single patient use only" WASTE: F/P - Black; E - Municipal Trash Bin Stable for 28 days at room temperature. Expires in days from Date Dextrose 50% 12.5 gm, 25 No Longer Syringe mL, Route: Active 2015 [facility] IVP, Drug Form: INJ, Dosing Weight 109.545, kg, PRN, PRN Blood Glucose Results, Start date: 07/28/16 10:01:00 CLINICAL REVIEWER, Duration: 30 day, Stop date: 08/27/16 10:00:00 CLINICAL REVIEWER Glucagon 1 mg, Route: No Longer IM, Drug form: Active 2015 [facility] PDR/INJ, PRN, Dosing Weight 109.545, kg, PRN Blood Glucose Results, Start date: 07/28/16 10:01:00 CLINICAL REVIEWER, Duration: 30 day, Stop date: 08/27/16 10:00:00 CLINICAL REVIEWER Enoxaparin Notes: (Same No Longer as: Lovenox) Active 2015 [facility] Baclofen Notes: (Same No Longer As: Lioresal) Active 2015 [facility] Saline Flush 0.9% Notes: (Same No Longer as: BD Active 2015 [facility] Posiflush) aspirin 81 mg Notes: Do not No Longer tablet, enteric crush or chew. Active 2015 [facility] coated (Same As: Ecotrin) Famotidine Notes: (Same No Longer as: Pepcid) Active 2015 [facility] Alprazolam 0.5 MG Notes: With No Longer Oral Tablet food or milk Active [address] [facility] [address] [Xanax] (Same as: Xanax) Saline Flush 0.9% Notes: (Same No Longer as: BD Active 2015 [facility] Posiflush) Ondansetron Notes: (Same No Longer as: Zofran) 2015 [facility] MEDICATION WASTE Product Size: 4 mg Product Wasted: ___ mg Sodium Chloride 1,000 mL, No Longer 0.154 MEQ/ML Rate: 40 Active 2015 [facility] Injectable ml/hr, Infuse Solution over: 25 hr, Route: IV, Dosing Weight 97.273 kg, Total Volume: 1,000, Start date: 07/28/16 1:29:00 CLINICAL REVIEWER, Stop date: 08/27/16 1:28:00 CLINICAL REVIEWER Aspirin Notes: Take No Longer with food. Active 2015 [facility] Sodium Chloride 1,000 mL, Inactive 0.154 MEQ/ML 1,000 ml/hr, 2016 [facility] Injectable Infuse Over: 1 Solution hr, Route: IV, 1,000, Drug form: INJ, ONCE, Priority: STAT, Dosing Weight 97.727 kg, Start date: 05/30/16 10:49:00 CDT, Duration: 1 doses or times, Stop date: 05/30/16 10:49:00 CDT Fenofibrate 200 mg, Route: No Longer PO, Daily, Active 2014 [facility] Dosing Weight 120, kg, Start date: 02/18/15 9:00:00, Duration: 30 day, Stop date: 03/19/15 9:00:00 pantoprazole Notes: Tablet No Longer should not be Active 2014 [facility] chewed or crushed. (Same as: Protonix) Thyroxine Notes: Take 1 No Longer hour before or Active 2014 [facility] 2 hours after meal; Enteral feeds may interefere with the absorption of this medication.([facility] as:Levothroid, Synthroid) Alprazolam Notes: With Inactive food or milk 2014 [facility] (Same as: Xanax) TriCor Notes: (Same No Longer as: Tricor) Active 2014 [facility] Risperidone Notes: (Same No Longer as: Risperdal) Active 2014 [facility] Lisinopril Notes: (Same No Longer as: Prinivil, Active 2014 [facility] Zestril) latanoprost 0.05 Notes: Keep No Longer 06// H MG/ML Ophthalmic refrigerated. Active 2014 [facility] Solution (Same as:Xalatan) Lantus 30 unit, Inactive Route: SUB-Q, 2014 [facility] Bedtime, Dosing Weight 120, kg, Start date: 02/17/15 21:00:00, Duration: 30 day, Stop date: 03/18/15 21:00:00 Levemir FlexPen Notes: Same as No Longer Levemir Do not Active 2014 [facility] hold insulin without contacting prescriber "single patient use only" Saline Flush 0.9% Notes: (Same No Longer as: BD Active 2014 [facility] Posiflush) Docusate Notes: (Same No Longer as: Colace) Active 2014 [facility] (Do Not Crush) normal saline 0.9% 1,000 mL, No Longer 02/18/ H IV 1,000 mL Rate: 200 Active 2014 [facility] ml/hr, Infuse over: 5 hr, Route: IV, Dosing Weight 120 kg, Total Volume: 1,000, Start date: 02/17/15 20:44:00, Duration: 30 day, Stop date: 03/19/15 20:43:00 Symbicort 160/4.5 Notes: (Same No Longer inhalation aerosol as: Symbicort) Active 2014 [facility] with adapter Sodium Chloride 1,000 mL, Inactive 0.154 MEQ/ML 1,000 ml/hr, 2014 [facility] ast Injectable Infuse Over: 1 Solution hr, Route: IV, ONCE, Priority: STAT, Dosing Weight 120 kg, Start date: 02/17/15 19:00:00, Duration: 1 doses or times, Stop date: 02/17/15 19:00:00 Albuterol 0.833 Notes: (Same No Longer H MG/ML / as: Duoneb) Active 2014 [facility] Ipratropium [place] 0.167 MG/ML Inhalant Solution Lactulose Notes: (Same No Longer as:Chronulac) Active 2014 [facility] Enoxaparin Notes: (Same No Longer as: Lovenox) Active 2014 [facility] Brimonidine Notes: (Same No Longer tartrate 1.5 MG/ML as: Active 2014 [facility] Alphagan-P) Solution Betaxolol 2.5 Notes: (Same No Longer MG/ML Ophthalmic As: Betoptic Active 2014 [facility] Suspension S) [Betoptic S] Aspirin Notes: Take No Longer with food. Active 2014 [facility] Vitamin C Notes: (Same No Longer as: Vitamin C) Active 2014 [facility] Amlodipine Notes: (Same No Longer as: Norvasc) Active 2014 [facility] Amiodarone Notes: (Same No Longer as: Cordarone) Active 2014 [facility] Alprazolam Notes: With No Longer food or milk Active 2014 [facility] (Same as: Xanax) venlafaxine Notes: (Same No Longer As: Effexor) Active 2014 [facility] Januvia Notes: (Same No Longer as: Januvia) Active 2014 [facility] docusate sodium Notes: (Same No Longer H 100 mg oral as: Colace) Active 2014 [facility] t capsule (Do Not Crush) dexmedetomidine Notes: (Same No Longer H 200 microgram as: Precedex) Active 2014 [facility] heast potassium Notes: (Same No Longer phosphate + Sodium as: K Active 2014 [facility] Chloride 0.9% IV Phosphate.) 1 250 mL mMol phoshate has 1.47 mEq potassium Infuse over 4 hours sodium phosphate + Special No Longer Sodium Chloride Instructions: Active 2014 [facility] 0.9% IV 250 mL FOR ICU USE ONLY potassium chloride Notes: (Same No Longer as: Potassium Active 2014 [facility] Chloride) Calcium Carbonate Notes: (Same No Longer 500 MG Chewable As: Tums) Active 2014 [facility] ast Tablet Calcium Carbonate 500 mg = 200 mg elemental calcium Dose = mg calcium carbonate ( mg elemental calcium) Magnesium Oxide Notes: (Same No Longer H as: Mag-Ox Active 2014 [facility] 400) Magnesium oxide [id number] elemental magnesium Dose=____mg magnesium oxide (___mg elemental magnesium) Calcium Gluconate Special No Longer Instructions: Active 2014 [facility] FOR ICU USE ONLY Neutra-Phos Notes: (Same No Longer as: Active 2014 [facility] Neutra-Phos) Each 1.25 gm pkt has 250mg phosphorous. Mix w/2.5oz water and stir. Magnesium Sulfate Special No Longer Instructions: Active 2014 FOR ICU USE ONLY Saline Flush 0.9% Notes: (Same No Longer as: BD Active 2014 [facility]) Glucose 50 MG/ML / 1,000 mL, Inactive Sodium Chloride Rate: 125 2014 ast 0.0769 MEQ/ML ml/hr, Infuse Injectable over: 8 hr, Solution Route: IV, Dosing Weight 120 kg, Total Volume: 1,000, Start date: 02/17/15 16:37:00, Duration: 30 day, Stop date: 03/19/15 16:36:00 Albuterol 0.833 Notes: (Same No Longer H MG/ML / as: Duoneb) Active 2014 Ipratropium Wilson 0.167 MG/ML Inhalant Solution Bisacodyl Notes: (Same No Longer As: Dulcolax, Active 2014 [facility]) Acetaminophen Notes: Do not No Longer exceed 4 Active 2014 gm/day. (Same as: Tylenol) NovoLOG FlexPen Notes: Roll in No Longer palms of hands Active 2014 gently; Do not shake vigorously. (Same as: NovoLOG) "single patient use only" Stable for 28 days at room temperature. Expires in days from Date Humalog 10 unit, Inactive Route: SUB-Q, 2014 TID-Before Meals, Dosing Weight 120, kg, Start date: 02/17/15 16:30:00, Duration: 30 day, Stop date: 03/19/15 11:30:00 metoprolol Notes: (Same No Longer tartrate as: Lopressor) Active 2014 [facility] t Lorazepam Notes: (Same No Longer as: Ativan) Active 2014 [facility] Sodium Chloride 3% Notes: Inactive (Hypertonic) IV "Administer by 2014 [facility] 200 mL central venous catheter or a peripherally inserted [...] mL, Inactive 0.154 MEQ/ML 1,000 ml/hr, 2014 [facility] ast Injectable Infuse Over: 1 Solution Hour, Route: IV, ONCE, Priority: STAT, Dosing Weight 127.273 kg, Start date: 02/17/15 12:06:00, Duration: 1 doses or times, Stop date: 02/17/15 12:06:00 Keppra 1,000 mg, 100 Inactive mL, Route: IV, 2014 Drug form: INJ, ONCE, Dosing Weight 127.273, kg, Start date: 02/17/15 11:07:00, Stop date: 02/17/15 11:07:00 Ativan 1 mg, Route: Inactive IVP, Drug 2014 form: INJ, ONCE, Dosing Weight 127.273, kg, Priority: STAT, Start date: 02/17/15 11:06:00, Stop date: 02/17/15 11:06:00 omega-3 1,000 mg = 1 Active polyunsaturated cap, PO, [address] [facility] [address] fatty acids 1000 Daily, 0 mg oral capsule Refill(s) Vitamin C 500 mg 1,000 mg = 2 Active oral tablet tab, PO, 2014 Daily, 0 Refill(s) latanoprost 0.05 1 drp, BOTH Active MG/ML Ophthalmic EYES, Bedtime, 2014 Solution 0 Refill(s) Betaxolol 2.5 2 drp, BOTH Active MG/ML Ophthalmic EYES, BID, 0 2014 [facility] Suspension Refill(s) [Betoptic S] Brimonidine 1 drp, BOTH Active tartrate 1.5 MG/ML EYES, BID, 0 2014 [facility] Ophthalmic Refill(s) Solution Symbicort 160/4.5 2 puff, Active inhalation aerosol INHALATION, 2014 [facility] with adapter BID, 0 Refill(s) tiotropium 0.018 18 microgram, Active H MG/ACTUAT Inhalant INHALATION, 2014 [facility] Powder [Spiriva] Daily, 0 Refill(s) Ipratropium 500 microgram, Active NEB, QID, 0 2014 [facility] Refill(s) Humalog 10 unit, Active SUB-Q, 2014 [facility] TID-Before Meals, 0 Refill(s) Lantus 30 unit, Active SUB-Q, 2014 Bedtime, 0 Refill(s) busPIRone 5 mg 5 mg = 1 tab, Active oral tablet PO, TID, 0 2014 [facility] Refill(s) venlafaxine 75 mg 75 mg = 1 tab, Active oral tablet PO, Daily, [address] [facility] [address] Refill(s) Alprazolam 1 mg, PO, No Longer Bedtime, 0 Active 2014 [facility] Refill(s) docusate sodium 200 mg = 2 Active 100 mg oral cap, PO, BID, 2014 [facility] ast capsule 0 Refill(s) Saline Flush 0.9% Notes: (Same Inactive as: BD 2014 [facility] Posiflush) Naloxone Notes: Same as Inactive Narcan 2014 [facility] Albuterol 0.833 3 ml, Active MG/ML / INHALATION, 2013 [facility] Ipratropium QID, # 60 ea, Wilson 0.167 0 Refill(s) MG/ML Inhalant Solution [DuoNeb] {21 Special Active (Methylprednisolon Instructions: 2013 [facility] e 4 MG Oral Tablet Take with or [Medrol]) } Pack without food [Medrol Dosepak] Doxycycline 100 MG 100 mg = 1 Active Oral Capsule cap, PO, 2013 [facility] [id number], # 14 cap, 0 Refill(s) Prednisone Notes: Take Inactive with food. 2013 [facility] Budesonide 0.25 Notes: (Same No Longer H MG/ML Inhalant As: Pulmicort) Active 2013 [facility] Solution [Pulmicort] Azithromycin Notes: Same No Longer as: Zithromax Active 2013 [facility] Fenofibrate Notes: (Same No Longer as: Tricor) Active 2013 [facility] Effexor XR Notes: Do not No Longer open, crush, Active 2013 [facility] or chew. (Same As: Effexor XR) One-A-Day Men 50 Notes: Give No Longer H Plus with food. Active 2013 [facility] (Same As: Stress 600 with Zinc) Influenza Virus Notes: (Same Inactive Vaccine, as: Fluzone 2013 [facility] Inactivated Quadrivalent) [id number] (H3N2)-like virus ([id number] [facility] X-175C) strain / Influenza Virus Vaccine, Inactivated [id number] , IVR-148 (H1N1) strain / Influenza Virus Vaccine, Inactivated, [id number] ik Furosemide Notes: (Same No Longer as: Lasix) Active 2013 [facility] May cause GI upset. Give with food or milk. Docusate Notes: (Same No Longer as: Colace) Active 2013 [facility] (Do Not Crush) Vitamin D3 Notes: Same as No Longer Vitamin D3 Active 2013 [facility] aspirin Notes: Take No Longer with food. Active 2013 [facility] Amlodipine Notes: (Same No Longer as: Norvasc) Active 2013 [facility] Amiodarone Notes: (Same No Longer as: Cordarone) Active 2013 [facility] Alprazolam Notes: With No Longer food or milk Active 2013 [facility] (Same as: Xanax) Enoxaparin Notes: (Same No Longer as: Lovenox) Active 2013 [facility] Thyroxine Notes: Take 1 No Longer hour before or Active 2013 [facility] 2 hours after meal; Enteral feeds may interefere with the absorption of this medication. (Same as:Levothroid) Albuterol 0.833 Notes: (Same No Longer H MG/ML / as: Duoneb) Active 2013 [facility] Ipratropium Wilson 0.167 MG/ML Inhalant Solution methylPREDNISolone Notes: (Same No Longer SODium SUCCinate as:Solu-MEDROL Active 2013 [facility] , A-Methapred) Doxycycline Notes: NO No Longer MILK/ANTACIDS/ Active 2013 [facility] IRON Take 1 hour before or 2 hours after dairy products Levemir Notes: Same as No Longer Levemir Active 2013 [facility] "single patient use only" Trazodone Notes: (Same No Longer As: Desyrel) Active 2013 [facility] Risperidone Notes: (Same No Longer as: Risperdal) Active 2013 [facility] metoprolol Notes: (Same No Longer tartrate as: Lopressor) Active 2013 [place] [facility] Lisinopril Notes: (Same No Longer as: Prinivil, Active 2013 [facility] Zestril) Alprazolam Notes: With No Longer food or milk Active 2013 [facility] (Same as: Xanax) Insulin, Aspart, Notes: Roll in No Longer Human palms of hands Active 2013 [facility] gently; Do not shake vigorously. (Same as: NovoLOG) "single patient use only" Stable for 28 days at room temperature. Expires in days from Date Glucagon 1 mg, Route: No Longer IM, Drug form: Active 2013 [facility] PDR/INJ, PRN, Dosing Weight 110.966, kg, PRN Blood Glucose Results, Start date: 06/08/14 23:33:00, Duration: 30 day, Stop date: 07/08/14 22:32:00 Dextrose 50% 25 gm, 50 mL, No Longer Syringe Route: IVP, Active 2013 [facility] Drug Form: INJ, Dosing Weight 110.966, kg, PRN, PRN Blood Glucose Results, Start date: 06/08/14 23:33:00, Duration: 30 day, Stop date: 07/08/14 22:32:00 Baclofen Notes: (Same No Longer As: Lioresal) Active 2013 [facility] Albuterol 0.83 Notes: SEE RT No Longer H MG/ML Inhalant DOCUMENTATION Active 2013 [facility] Non-Formulary Home Special Active Medication Instructions: [address] Unknown eye drops; [facility] [place] aspirin 81 mg, PO, Active Daily 2013 [facility] Vitamin D3 200 IntlUnit, Active PO, Daily 2013 [facility] One-A-Day Men 50 1 tab, PO, Active Plus Daily 2013 [facility] Docusate 100 mg, PO, Active Daily 2013 [facility] Thyroxine 25 microgram, Active PO, Daily 2013 [facility] Januvia 50 mg, PO, Active Daily 2013 [facility] Fenofibrate 200 mg, PO, Active Daily 2013 [facility] Amlodipine 10 mg, PO, Active Daily 2013 [facility] Baclofen 10 mg, PO, Active Q8H, as needed 2013 [facility] for muscle spasm Risperidone 2 mg, PO, Active Bedtime 2013 [facility] Lisinopril 20 mg, PO, BID Active 2013 [facility] Trazodone 50 mg, PO, Active Bedtime 2013 [facility] Alprazolam 1 mg, PO, Active Bedtime 2014 [facility] Alprazolam 0.5 mg, PO, Active TID 2013 [facility] Furosemide 20 mg, PO, Active Daily 2013 [facility] Zithromax Notes: Same Inactive as: Zithromax 2013 [facility] Albuterol 0.833 Notes: (Same Inactive MG/ML / as: Duoneb) 2013 [facility] Ipratropium Wilson 0.167 MG/ML Inhalant Solution [DuoNeb] Saline Flush 0.9% Notes: (Same No Longer as: BD Active 2013 [facility] Posiflush) Allergies, Adverse Reactions, Alerts Substance Category Reaction Severity Reaction Status Date Comments S ource type Reported codeine Assertion altered Drug Active [facility] mental [facility] [place] status caffeine Assertion Drug Active [facility] allergy [place] Immunizations Immunization Date Site Status Last Comments Source Given Updated influenza virus Left completed [facility] vaccine, 7 deltoid inactivated influenza virus Right completed [facility] vaccine, 4 [facility]to[facility] [place], [facility] inactivated S Outpat ient Imaging [facility] Results Order Name Results Value Reference Date Interpretation Comments Ita rce Range CHEM PANEL eGFR 83 06/09 Result Comment: [facility] eGFR is calculated using the CKD-EPI formula. [...] Calcium Lvl 9.0 8.5 - 10.5 06/09 [facility] CHEM PANEL AGAP 8.0 10.0 - 06/09 MH 20.0 [facility] CHEM PANEL Creatinine 0.91 0.50 - 06/09 Lvl 1.40 /2016 [facility] CHEM PANEL Chloride Lvl 96 95 - 109 06/09 [facility] CHEM PANEL CO2 37 24 - 32 06/09 [facility] CHEM PANEL Sodium Lvl 137 135 - 145 06/09 [facility] CHEM PANEL Glucose Lvl 132 70 - 99 06/09 [facility] CHEM PANEL BUN 12 7 - 22 06/09 [facility] CHEM PANEL Potassium 4.0 3.5 - 5.1 06/09 MH Lvl [facility] HEMATOLOGY Basophils 0.9 0.0 - 1.0 06/09 [facility] HEMATOLOGY Segs-Bands # 5.6 1.5 - 8.1 06/09 [facility] HEMATOLOGY Monocytes # 1.2 0.0 - 0.8 06/09 [facility] HEMATOLOGY Lymphocytes 1.2 1.0 - 5.5 06/09 MH # /2016 [facility] HEMATOLOGY Basophils # 0.1 0.0 - 0.2 06/09 /2016 [facility] HEMATOLOGY Eosinophils 0.2 0.0 - 0.5 10 MH # /2017 [facility] HEMATOLOGY Eosinophils 2.0 0.0 - 4.0 06/09 [facility] HEMATOLOGY Monocytes 14.8 2.0 - 12.0 06/09 [facility] HEMATOLOGY Lymphocytes 14.9 20.0 - 06/09 MH 40.0 /2017 [facility] HEMATOLOGY Segs 67.4 45.0 - 06/09 MH 75.0 /2017 [facility] HEMATOLOGY RDW 14.4 11.5 - 10 MH 14.5 [facility] HEMATOLOGY Platelet 324 133 - 450 06/09 [facility] HEMATOLOGY MPV 8.9 7.4 - 10.4 06/09 [facility] HEMATOLOGY MCHC 33.7 32.0 - 06/09 MH 36.0 [facility] HEMATOLOGY RBC 3.48 4.70 - 06/09 MH 6.10 [facility] HEMATOLOGY Hgb 10.5 14.0 - 06/09 MH 18.0 [facility] HEMATOLOGY MCV 89.8 80.0 - 06/09 MH 94.0 [facility] HEMATOLOGY Hct 31.2 42.0 - 06/09 MH 54.0 [facility] HEMATOLOGY MCH 30.2 27.0 - 06/09 MH 31.0 [facility] HEMATOLOGY WBC 8.4 3.7 - 10.4 06/09 [facility] ELECTROLYT AGAP 6.7 10.0 - 06/05 ES 20.0 [facility] ELECTROLYT B/C Ratio 17 6 - 25 06/05 [facility] ELECTROLYT Globulin 3.5 2.7 - 4.2 06/05 ES [facility] ELECTROLYT A/G Ratio 0.5 0.7 - 1.6 06/05 ES [facility] ELECTROLYT eGFR 85 06/05 Result Comment: [facility] eGFR is calculated using the CKD-EPI formula. [...] ELECTROLYT Total 5.2 6.4 - 8.4 06/05 ES Protein [facility] ELECTROLYT Albumin Lvl 1.7 3.5 - 5.0 06/05 [facility] ELECTROLYT ALT 18 0 - 65 06/05 ES [place] ELECTROLYT CO2 36 24 - 32 06/05 ES [facility] ELECTROLYT Calcium Lvl 9.1 8.5 - 10.5 06/05 [facility] ELECT[facility]OLYT AST 16 0 - 37 06/05 [facility] ELECT[facility]OLYT Alk Phos 38 39 - 136 06/05 ES [facility] ELECTROLYT Bili Total 0.3 0.2 - 1.3 06/05 ES [facility] ELECTROLYT Creatinine 0.88 0.50 - 06/05 MH ES Lvl 1.40 /2016 [facility] ELECTROLYT Sodium Lvl 136 135 - 145 06/05 ES [place] ELECTROLYT Potassium 3.7 3.5 - 5.1 06/05 ES Lvl [place] ELECTROLYT Chloride Lvl 97 95 - 109 06/05 [facility] ELECTROLYT BUN 15 7 - 22 06/05 ES [facility] ELECTROLYT Glucose Lvl 135 70 - 99 06/05 [facility] HEMATOLOGY Platelet 327 133 - 450 06/05 [facility] HEMATOLOGY MPV 8.6 7.4 - 10.4 06/05 [facility] HEMATOLOGY Hct 30.7 42.0 - 06/05 MH 54.0 /2017 [facility] HEMATOLOGY MCV 88.8 80.0 - 06/05 94.0 [facility] HEMATOLOGY RBC 3.46 4.70 - 06/05 MH 6.10 [facility] HEMATOLOGY Hgb 10.4 14.0 - 06/05 MH 18.0 [facility] HEMATOLOGY RDW 14.2 11.5 - 06/05 MH 14.5 [facility] HEMATOLOGY MCHC 33.8 32.0 - 06/05 MH 36.0 [facility] HEMATOLOGY MCH 30.0 27.0 - 06/05 MH 31.0 /2017 [facility] HEMATOLOGY WBC 11.4 3.7 - 10.4 06/05 [facility] HEMATOLOGY Monocytes # 1.5 0.0 - 0.8 06/05 [facility] HEMATOLOGY Eosinophils 0.2 0.0 - 0.5 06/05 # /2017 [facility] HEMATOLOGY Lymphocytes 1.3 1.0 - 5.5 06/05 MH # /2016 [facility] HEMATOLOGY Segs-Bands # 8.3 1.5 - 8.1 06/05 [facility] HEMATOLOGY Eosinophils 2.0 0.0 - 4.0 06/05 [facility] HEMATOLOGY Monocytes 13.2 2.0 - 12.0 06/05 [facility] HEMATOLOGY Lymphocytes 11.1 20.0 - 06/05 MH 40.0 /2016 [facility] HEMATOLOGY Segs 73.2 45.0 - 06/05 MH 75.0 /2017 [facility] HEMATOLOGY Basophils # 0.1 0.0 - 0.2 06/05 [facility] HEMATOLOGY Basophils 0.5 0.0 - 1.0 06/05 [facility] CHEM PANEL B/C Ratio 15 6 - 25 10 [facility] CHEM PANEL Globulin 3.7 2.7 - 4.2 06/04 [facility] CHEM PANEL A/G Ratio 0.5 0.7 - 1.6 06/04 [facility] CHEM PANEL AGAP 10.8 10.0 - 06/04 MH 20.0 /2016 [facility] CHEM PANEL eGFR 83 10 Comment: [facility] eGFR is calculated using the CKD-EPI formula. [...] Alk Phos 43 39 - 136 06/04 [facility] CHEM PANEL Bili Total 0.3 0.2 - 1.3 06/04 [facility] CHEM PANEL Total 5.4 6.4 - 8.4 06/04 [facility] CHEM PANEL Calcium Lvl 8.9 8.5 - 10.5 06/04 [facility] CHEM PANEL Albumin Lvl 1.7 3.5 - 5.0 06/04 [facility] CHEM PANEL CO2 35 24 - 32 06/04 [facility] CHEM PANEL ALT 21 0 - 65 06/04 [facility] CHEM PANEL AST 19 0 - 37 06/04 [facility] CHEM PANEL Creatinine 0.91 0.50 - 06/04 Lvl 1.40 [facility] CHEM PANEL Sodium Lvl 135 135 - 145 06/04 [facility] CHEM PANEL BUN 14 7 - 22 06/04 [facility] CHEM PANEL Chloride Lvl 93 95 - 109 06/04 [facility] CHEM PANEL Potassium 3.8 3.5 - 5.1 06/04 Lvl [facility] CHEM PANEL Glucose Lvl 145 70 - 99 06/04 [facility] HEMATOLOGY Spherocyte Moderate None Seen 06/04 *ABN* [facility] (06/04/17 10:09 AM) HEMATOLOGY RBC Morph Normal 06/04 (06/04/17 10:09 AM) [place] HEMATOLOGY Large Plt Moderate None Seen 06/04 *ABN* [facility] (06/04/17 10:09 AM) HEMATOLOGY Toxic Gran Moderate None Seen 06/04 *ABN* /2016 [facility] (06/04/17 10:09 AM) HEMATOLOGY Lymphocytes 8.0 20.0 - 06/04 40.0 [facility] HEMATOLOGY Bands 4.0 0.0 - 11.0 06/04 [facility] HEMATOLOGY Atypical 0.0 <=0.0 % 06/04 Lymphs [facility] HEMATOLOGY Eosinophils 1.0 0.0 - 4.0 06/04 [facility] HEMATOLOGY Monocytes 7.0 2.0 - 12.0 06/04 [facility] HEMATOLOGY Segs 80.0 45.0 - 06/04 75.0 [facility] HEMATOLOGY Eosinophils 0.1 0.0 - 0.5 06/04 MH # /2016 [facility] HEMATOLOGY Segs-Bands # 11.8 1.5 - 8.1 06/04 [facility] HEMATOLOGY Monocytes # 1.0 0.0 - 0.8 06/04 /2016 [facility] HEMATOLOGY Lymphocytes 1.1 1.0 - 5.5 06/04 MH # /2016 [facility] HEMATOLOGY MCH 29.7 27.0 - 06/04 MH 31.0 [facility] HEMATOLOGY Hct 32.8 42.0 - 06/04 MH 54.0 /2016 [facility] HEMATOLOGY Hgb 11.0 14.0 - 06/04 MH 18.0 /2016 [facility] HEMATOLOGY RBC 3.68 4.70 - 06/04 MH 6.10 [facility] HEMATOLOGY MCV 89.0 80.0 - 06/04 94.0 /2016 [facility] HEMATOLOGY WBC 14.0 3.7 - 10.4 06/04 [facility] HEMATOLOGY RDW 14.4 11.5 - 06/04 MH 14.5 [facility] HEMATOLOGY Platelet 336 133 - 450 06/04 [facility] HEMATOLOGY MPV 8.5 7.4 - 10.4 06/04 [facility] HEMATOLOGY MCHC 33.4 32.0 - 06/04 MH 36.0 [facility] HEMATOLOGY Basophils 0.4 0.0 - 1.0 06/03 [facility] HEMATOLOGY RBC Morph Normal 06/03 (06/03/17 3:40 PM) [facility] ast HEMATOLOGY Plt Morph Normal 06/03 (06/03/17 3:40 PM) [place] [facility] HEMATOLOGY Basophils # 0.1 0.0 - 0.2 06/03 [facility] HEMATOLOGY Metamyelocyt 2.0 0.0 - 1.0 05/31 es [facility] HEMATOLOGY Atypical 0.0 <=0.0 % 05/31 Lymphs /2016 [facility] HEMATOLOGY Bands 10.0 0.0 - 11.0 05/31 [facility] HEMATOLOGY Plt Morph Normal 05/31 (05/31/17 4:41 AM) [place] [facility] HEMATOLOGY RBC Morph Normal 05/31 (05/31/17 4:41 AM) /2016 [place] [facility] HEMATOLOGY Toxic Gran Moderate None Seen 05/31 *ABN* /2016 [facility] (05/31/17 4:41 AM) HEMATOLOGY Tot Cell Ct 100 05/31 [facility] CHEM PANEL B/C Ratio 38 6 - 25 05/29 [facility] CHEM PANEL A/G Ratio 0.4 0.7 - 1.6 05/29 [facility] CHEM PANEL Globulin 3.5 2.7 - 4.2 05/29 [facility] CHEM PANEL ALT 16 0 - 65 05/29 [facility] CHEM PANEL Total 5.0 6.4 - 8.4 05/29 Protein [facility] CHEM PANEL Albumin Lvl 1.5 3.5 - 5.0 05/29 [facility] CHEM PANEL AST 18 0 - 37 05/29 [facility] CHEM PANEL Bili Total 0.4 0.2 - 1.3 05/29 [facility] CHEM PANEL Alk Phos 39 39 - 136 05/29 [facility] HEMATOLOGY Plt Morph Normal 05/28 (05/28/17 2:37 AM) [place] [facility] URINE AND UA Mucus Few /LPF None Seen 05/25 STOOL /LPF /2016 [facility] URINE AND UA Bacteria Occasional None Seen 05/25 STOOL /HPF /HPF /2016 [facility] URINE AND UA Amorph Moderate None Seen 05/25 STOOL Sydni /HPF /HPF /2016 [facility] URINE AND UA Sq Epi Occasional Few /LPF 05/25 STOOL /LPF /2016 [facility] URINE AND UA RBC 6-10 /HPF 0 - 2 05/25 [facility] [place] URINE AND UA WBC 0-2 /HPF 0 - 5 05/25 [facility]OL [place] URINE AND UA Leuk Est Negative Negative 05/25 [facility] (05/24/17 9:42 PM) [place] [facility] URINE AND Micro? Performed 05/25 [facility] (05/24/17 9:42 PM) [place] URINE AND UA 1.0 0.1 - 1.0 05/25 STOOL Urobilinogen /2016 [facility] URINE AND UA Nitrite Negative Negative 05/25 [facility] (05/24/17 9:42 PM) [place] URINE AND UA Protein 30 mg/dL Negative 05/25 STOOL mg/dL /2016 [facility] URINE AND UA Bili Small Negative 05/25 STOOL *ABN* /2016 [facility] (05/24/17 9:42 PM) URINE AND UA Blood Moderate Negative 05/25 STOOL *ABN* /2016 [facility] (05/24/17 9:42 PM) URINE AND UA Glucose Negative Negative 05/25 [facility] (05/24/17 9:42 PM) /2016 [place] [facility] URINE AND UA Ketones Trace Negative 05/25 STOOL *ABN* /2016 [facility] (05/24/17 9:42 PM) URINE AND UA Spec Grav >=1.030 <=1.030 05/25 STOOL *ABN* /2016 [facility] (05/24/17 9:42 PM) URINE AND UA pH 5.0 5.0 - 8.0 05/25 STOOL /2016 [facility] URINE AND UA Color Yellow Yellow 05/25 STOOL *NA* /2016 [facility] (05/24/17 9:42 PM) URINE AND UA Turbidity Cloudy Clear 05/25 STOOL *ABN* /2016 [facility] (05/24/17 9:42 PM) CHEM PANEL Procalcitoni 14.55 0.00 - 05/24 Result n Lvl 0.10 Comment: [facility] Critical Result(s) called to Mary Carmen Song RN at 05/24/2017 12:22 by STAN. Read back OK. CHEM PANEL Lactic Acid 1.2 0.5 - 2.2 05/24 Lvl /2016 [facility] URINE AND UA Ketones Negative Negative 05/23 STOOL mg/dL mg/dL [place] URINE AND UA Bili Negative Negative 05/23 STOOL *NA* /2016 [facility] (05/23/17 7:31 AM) URINE AND UA Blood Negative Negative 05/23 STOOL (05/23/17 7:31 AM) [place] URINE AND UA Nitrite Negative Negative 05/23 STOOL (05/23/17 7:31 AM) [place] URINE AND UA 2.0 0.1 - 1.0 05/23 STOOL Urobilinogen /2016 [facility] URINE AND UA Leuk Est Negative Negative 05/23 STOOL (05/23/17 7:31 AM) [place] URINE AND UA WBC 1 0 - 5 05/23 STOOL /2016 [facility] URINE AND UA Sq Epi Occasional Few /LPF 05/23 STOOL /LPF /2016 [facility] URINE AND UA Mucus Few /LPF None Seen 05/23 STOOL /LPF /2016 [facility] URINE AND UA RBC 2 0 - 2 05/23 STOOL /2016 [facility] URINE AND UA Glucose 150 mg/dL Negative 05/23 STOOL mg/dL /2016 [facility] URINE AND UA Protein 100 mg/dL Negative 05/23 STOOL mg/dL [place] URINE AND UA Spec Grav 1.020 <=1.030 05/23 STOOL /2016 [facility] URINE AND UA pH 5.0 5.0 - 8.0 05/23 STOOL /2016 [facility] URINE AND UA Color Yellow Yellow 05/23 STOOL *NA* /2016 [facility] (05/23/17 7:31 AM) URINE AND UA Turbidity Clear Clear 05/23 STOOL (05/23/17 7:31 AM) /2016 [place] CARDIAC BNP 76 <=100 05/23 ENZYMES pg/mL [facility] CHEM PANEL Magnesium 1.6 1.8 - 2.4 05/23 Lvl /2016 [facility] CHEM PANEL Lipase Lvl 151 73 - 393 05/23 [facility] SPECIAL Hgb A1C 6.5 <=5.6 % 05/23 CHEMISTRY /2016 [facility] URINE AND UA Sq Epi Occasional Few /LPF 07/28 STOOL /LPF /2015 [facility] URINE AND UA WBC None Seen None Seen 07/28 STOOL (07/28/16 5:04 AM) /2015 [place] URINE AND UA RBC None Seen 0 - 2 07/28 STOOL (07/28/16 5:04 AM) [place] URINE AND UA Bacteria Occasional None Seen 07/28 STOOL /HPF /HPF /2015 [facility] URINE AND UA Nitrite Negative Negative 07/28 STOOL (07/28/16 5:04 AM) [place] URINE AND UA Leuk Est Negative Negative 07/28 STO[facility] (07/28/16 5:04 AM) [place] URINE AND UA Turbidity Clear Clear 07/28 STOOL (07/28/16 5:04 AM) [place] URINE AND UA Color STRAW 07/28 STOOL /2015 [facility] URINE AND UA Ketones Negative Negative 07/28 STOOL *NA* /2015 [facility] (07/28/16 5:04 AM) URINE AND UA Bili Negative Negative 07/28 STOOL *NA* /2015 [facility] (07/28/16 5:04 AM) URINE AND UA Spec Grav 1.010 <=1.030 07/28 STOOL /2015 [place] URINE AND UA 0.2 0.1 - 1.0 07/28 STOOL Urobilinogen /2015 [facility] URINE AND UA Blood Negative Negative 07/28 STOOL (07/28/16 5:04 AM) [place] URINE AND UA pH 7.0 5.0 - 8.0 07/28 STOOL /2015 [facility] URINE AND UA Glucose 100 mg/dL Negative 07/28 STOOL mg/dL [facility] URINE AND UA Protein Negative Negative 07/28 STOOL (07/28/16 5:04 AM) [place] LIPIDS CHD Risk 2.35 4.00 - 07/28 7.30 [facility] LIPIDS VLDL 27 07/28 [facility] LIPIDS LDL 46 <=99 mg/dL 07/28 (Calculated) [facility] LIPIDS Chol 127 <=199 07/28 mg/dL [facility] LIPIDS HDL 54 >=61 mg/dL 07/28 [facility] LIPIDS Trig 135 <=149 07/28 mg/dL [facility] SPECIAL Hgb A1C 6.1 <=5.6 % 07/28 CHEMISTRY [facility] CARDIAC CK MB Index <2.0 0.0 - 2.5 07/28 ENZYMES [facility] CARDIAC Troponin-I <0.02 0.00 - 07/28 ENZYMES 0.40 [facility] CARDIAC CK MB <1.0 0.5 - 3.6 07/28 ENZYMES [facility] CARDIAC Total CK 49 12 - 191 07/28 [facility] CARDIAC BNP 32 <=100 07/28 [facility] pg/mL [facility] CHEM PANEL Globulin 3.3 2.7 - 4.2 07/28 [facility] CHEM PANEL A/G Ratio 1.0 0.7 - 1.6 07/28 [facility] CHEM PANEL eGFR 53 07/28 [facility] Comment: The [facility] eGFR is calculated using the CKD-EPI formula. [...] PANEL AST 11 0 - 37 07/28 /2015 [facility] CHEM PANEL Alk Phos 38 39 - 136 07/28 /2015 [facility] CHEM PANEL Bili Total 0.2 0.2 - 1.3 07/28 /2015 [facility] CHEM PANEL AGAP 10.0 10.0 - 07/28 MH 20.0 /2015 [facility] CHEM PANEL B/C Ratio 21 6 - 25 07/28 [facility] CHEM PANEL ALT 16 0 - 65 07/28 [facility] CHEM PANEL Albumin Lvl 3.3 3.5 - 5.0 07/28 [facility] CHEM PANEL Calcium Lvl 8.3 8.5 - 10.5 07/28 [facility] CHEM PANEL CO2 34 24 - 32 07/28 [facility] CHEM PANEL Total 6.6 6.4 - 8.4 07/28 Protein [facility] CHEM PANEL Glucose Lvl 161 70 - 99 07/28 /2015 [facility] CHEM PANEL Potassium 4.0 3.5 - 5.1 07/28 Lvl /2015 [facility] CHEM PANEL Chloride Lvl 99 95 - 109 07/28 [facility] CHEM PANEL Creatinine 1.34 0.50 - 07/28 MH Lvl 1.40 [facility] CHEM PANEL BUN 28 7 - 22 07/28 /2015 [facility] CHEM PANEL Sodium Lvl 139 135 - 145 07/28 /2015 [facility] HEMATOLOGY Basophils # 0.1 0.0 - 0.2 07/28 /2015 [facility] HEMATOLOGY Segs-Bands # 5.2 1.5 - 8.1 07/28 /2015 [facility] HEMATOLOGY Lymphocytes 22.2 20.0 - 07/28 MH 40.0 /2016 [facility] HEMATOLOGY Monocytes 13.7 2.0 - 12.0 07/28 /2015 [facility] HEMATOLOGY Eosinophils 0.2 0.0 - 0.5 07/28 MH # /2016 [facility] HEMATOLOGY Lymphocytes 1.9 1.0 - 5.5 07/28 MH # /2016 [facility] HEMATOLOGY Monocytes # 1.2 0.0 - 0.8 07/28 /2015 [facility] HEMATOLOGY Segs 60.8 45.0 - 07/28 MH 75.0 /2016 [facility] HEMATOLOGY Eosinophils 2.7 0.0 - 4.0 07/28 /2015 [facility] HEMATOLOGY Basophils 0.6 0.0 - 1.0 07/28 /2015 [facility] HEMATOLOGY PTT 26.5 22.9 - 07/28 MH 35.8 /2015 [facility] HEMATOLOGY PT 13.6 12.0 - 07/28 MH 14.7 /2015 [facility] HEMATOLOGY INR 1.02 0.85 - 07/28 MH 1.17 /2015 [facility] HEMATOLOGY Platelet 181 133 - 450 07/28 /2015 [facility] HEMATOLOGY MPV 10.9 7.4 - 10.4 07/28 /2015 [facility] HEMATOLOGY MCH 29.9 27.0 - 07/28 MH 31.0 /2015 [facility] HEMATOLOGY MCHC 33.2 32.0 - 07/28 MH 36.0 /2015 [facility] HEMATOLOGY MCV 90.2 80.0 - 07/28 MH 94.0 /2015 [facility] HEMATOLOGY RDW 13.3 11.5 - 07/28 MH 14.5 /2015 [facility] HEMATOLOGY Hgb 13.4 14.0 - 07/28 MH 18.0 /2015 [facility] HEMATOLOGY Hct 40.3 42.0 - 07/28 MH 54.0 /2015 [facility] HEMATOLOGY WBC 8.5 3.7 - 10.4 07/28 /2015 [facility] HEMATOLOGY RBC 4.47 4.70 - 07/28 MH 6.10 /2015 [facility] URINE AND UA Bacteria None Seen None Seen 07/28 [facility] (07/27/16 10:12 PM) /2015 [facility] URINE AND UA WBC None Seen None Seen 07/28 [facility] (07/27/16 10:12 PM) /2015 [facility] URINE AND UA RBC None Seen 0 - 2 07/28 [facility] (07/27/16 10:12 PM) [facility] URINE AND UA Sq Epi Rare /LPF Few /LPF 07/28 [facility] /2015 [facility] URINE AND UA Nitrite Negative Negative 07/28 [facility] (07/27/16 10:12 PM) /2015 [facility] URINE AND UA Leuk Est Negative Negative 07/28 [facility] (07/27/16 10:12 PM) /2015 [facility] URINE AND UA Ketones Negative Negative 07/28 [facility] mg/dL mg/dL /2015 [facility] URINE AND UA Bili Negative Negative 07/28 [facility] *NA* /2015 [facility] (07/27/16 10:12 PM) URINE AND UA Blood Negative Negative 07/28 [facility] (07/27/16 10:12 PM) [place] URINE AND UA 0.2 0.1 - 1.0 07/28 [facility] Urobilinogen /2015 [facility] URINE AND UA Spec Grav 1.010 <=1.030 07/28 [facility] /2015 [facility] URINE AND UA Color Yellow Yellow 07/28 [facility] *NA* /2015 [facility] (07/27/16 10:12 PM) URINE AND UA Turbidity Clear Clear 07/28 [facility] (07/27/16 10:12 PM) [place] URINE AND UA pH 7.5 5.0 - 8.0 07/28 [facility] URINE AND UA Protein Negative Negative 07/28 [facility] mg/dL mg/dL [facility] URINE AND UA Glucose Negative Negative 07/28 [facility] mg/dL mg/dL /2015 [facility] URINE AND UA Leuk Est Negative Negative 05/30 [facility] (05/30/16 11:03 AM) /2015 [place] URINE AND UA Turbidity Clear Clear 05/30 [facility] (05/30/16 11:03 AM) [place] URINE AND UA Nitrite Negative Negative 05/30 [facility] (05/30/16 11:03 AM) [place] URINE AND UA 0.2 0.1 - 1.0 05/30 [facility] Urobilinogen /2015 [facility] URINE AND UA Spec Grav 1.015 <=1.030 05/30 STOOL /2015 [facility] URINE AND UA pH 6.0 5.0 - 8.0 05/30 STO[facility] /2015 [facility] URINE AND UA Protein Negative Negative 05/30 [facility] (05/30/16 11:03 AM) [place] URINE AND UA Color Yellow Yellow 05/30 [facility] *NA* /2015 [facility] (05/30/16 11:03 AM) URINE AND UA Ketones Negative Negative 05/30 STO[facility] *NA* [facility] (05/30/16 11:03 AM) URINE AND UA Glucose Negative Negative 05/30 [facility] (05/30/16 11:03 AM) [place] URINE AND UA Blood Moderate Negative 05/30 STO[facility] *ABN* /2015 [facility] (05/30/16 11:03 AM) URINE AND UA Bili Negative Negative 05/30 [facility] *NA* (05/30/16 11:03 AM) URINE AND UA Sq Epi Rare /LPF Few /LPF 05/30 STOOL /2015 [facility] URINE AND Micro? Performed 05/30 [facility] (05/30/16 11:03 AM) [place] URINE AND UA WBC None Seen None Seen 05/30 [facility] (05/30/16 11:03 AM) [facility] URINE AND UA RBC None Seen 0 - 2 05/30 [facility] (05/30/16 11:03 AM) [place] URINE AND UA Bacteria None Seen None Seen 05/30 [facility] (05/30/16 11:03 AM) /2015 [facility] CARDIAC Troponin-I <0.02 0.00 - 05/30 EN[facility]YMES 0.40 [facility] CARDIAC BNP 32 <=100 05/30 [facility] pg/mL /2015 [facility] CARDIAC Total CK 64 12 - 191 05/30 ENZYMES /2015 [facility] CHEM PANEL Lipase Lvl 201 73 - 393 05/30 [facility] ELECTROLYT AGAP 9.2 10.0 - 05/30 ES 20.0 [facility] ELECTROLYT B/C Ratio 20 6 - 25 05/30 ES [facility] ELECTROLYT Globulin 3.8 2.7 - 4.2 05/30 ES [facility] ELECTROLYT A/G Ratio 0.9 0.7 - 1.6 05/30 ES [facility] ELECTROLYT eGFR 49 05/30 [facility] ES Comment: The [facility] eGFR is calculated using the CKD-EPI formula. [...] Albumin Lvl 3.6 3.5 - 5.0 05/30 MH ES [facility] ELECTROLYT ALT 20 0 - 65 05/30 MH ES [facility] ELECTROLYT Alk Phos 37 39 - 136 05/30 MH ES /2015 [facility] ELECTROLYT AST 14 0 - 37 05/30 MH ES [facility] ELECTROLYT Bili Total 0.3 0.2 - 1.3 05/30 MH ES /2015 [facility] ELECTROLYT Sodium Lvl 143 135 - 145 05/30 MH ES [facility] ELECTROLYT Creatinine 1.42 0.50 - 05/30 MH ES Lvl 1.40 /2015 [facility] ELECTROLYT Potassium 4.2 3.5 - 5.1 05/30 MH ES Lvl /2015 [facility] ELECTROLYT Chloride Lvl 103 95 - 109 05/30 MH ES [facility] ELECT[facility]OLYT Calcium Lvl 8.9 8.5 - 10.5 05/30 MH ES [facility] ELECTROLYT CO2 35 24 - 32 05/30 MH ES /2015 [facility] ELECTROLYT Total 7.4 6.4 - 8.4 05/30 MH ES [facility] ELECTROLYT BUN 28 7 - 22 05/30 MH ES /2015 [facility] ELECTROLYT Glucose Lvl 141 70 - 99 05/30 MH ES [facility] HEMATOLOGY Basophils # 0.1 0.0 - 0.2 05/30 [facility] HEMATOLOGY Lymphocytes 1.3 1.0 - 5.5 05/30 MH # /2015 [facility] HEMATOLOGY Monocytes # 1.1 0.0 - 0.8 05/30 [facility] HEMATOLOGY Eosinophils 0.1 0.0 - 0.5 05/30 MH # /2015 [facility] HEMATOLOGY Segs-Bands # 4.4 1.5 - 8.1 05/30 [facility] HEMATOLOGY Basophils 0.9 0.0 - 1.0 05/30 [facility] HEMATOLOGY Monocytes 15.3 2.0 - 12.0 05/30 [facility] HEMATOLOGY Eosinophils 2.1 0.0 - 4.0 05/30 [facility] HEMATOLOGY Lymphocytes 18.2 20.0 - 05/30 MH 40.0 [facility] HEMATOLOGY Segs 63.5 45.0 - 05/30 MH 75.0 /2015 [facility] HEMATOLOGY Hct 39.9 42.0 - 05/30 MH 54.0 [facility] HEMATOLOGY MCH 30.6 27.0 - 05/30 MH 31.0 [facility] HEMATOLOGY MCV 91.2 80.0 - 05/30 MH 94.0 /2015 [facility] HEMATOLOGY Hgb 13.4 14.0 - 05/30 MH 18.0 /2015 [facility] HEMATOLOGY RBC 4.37 4.70 - 05/30 MH 6.10 /2015 [facility] HEMATOLOGY WBC 6.9 3.7 - 10.4 05/30 [facility] HEMATOLOGY Platelet 174 133 - 450 05/30 [facility] HEMATOLOGY MPV 10.3 7.4 - 10.4 05/30 [facility] HEMATOLOGY MCHC 33.6 32.0 - 05/30 MH 36.0 /2015 [facility] HEMATOLOGY RDW 13.8 11.5 - 05/30 MH 14.5 /2015 [facility] CHEM PANEL Magnesium 1.6 1.8 - 2.4 02/19 Lv [facility] ELECTROLYT AGAP 8.5 10.0 - 02/19 ES 20.0 [facility] ELECTROLYT eGFR 86 02/19 <sup>1</sup>R esult [facility] Comment: The eGFR is calculated using the [...] Sodium Lvl 137 135 - 145 02/19 ES [facility] ELECTROLYT Potassium 3.5 3.5 - 5.1 02/19 ES Lvl [facility] ELECTROLYT Calcium Lvl 8.4 8.5 - 10.5 02/19 ES [facility] ELECTROLYT CO2 30 24 - 32 02/19 ES [facility] ELECTROLYT Chloride Lvl 102 95 - 109 02/19 ES [facility] ELECTROLYT Creatinine 0.9 0.5 - 1.4 02/19 ES Lvl /2014 [facility] ELECTROLYT Glucose Lvl 127 70 - 99 02/19 <sup>4</sup>I MH ES /2014 nterpretive [facility] Data: Adult reference range values reflect the clinical guidelines
of the [place] [employer]. ELECTROLYT BUN 9 7 - 22 02/19 MH ES /2014 [facility] HEMATOLOGY Basophils # 0.1 0.0 - 0.2 02/19 /2014 [facility] HEMATOLOGY Eosinophils 0.1 0.0 - 0.5 02/19 MH # /2014 [facility] HEMATOLOGY Monocytes # 0.9 0.0 - 0.8 02/19 /2014 [facility] HEMATOLOGY Lymphocytes 2.0 1.0 - 5.5 02/19 MH # /2014 [facility] HEMATOLOGY Segs 59.5 45.0 - 02/19 MH 75.0 /2014 [facility] HEMATOLOGY Lymphocytes 25.6 20.0 - 02/19 MH 40.0 /2014 [facility] HEMATOLOGY Basophils 1.6 0.0 - 1.0 02/19 /2014 [facility] HEMATOLOGY Eosinophils 1.2 0.0 - 4.0 02/19 /2014 [facility] HEMATOLOGY Segs-Bands # 4.6 1.5 - 8.1 02/19 /2014 [facility] HEMATOLOGY Monocytes 12.1 2.0 - 12.0 02/19 /2014 [facility] HEMATOLOGY MCH 30.5 27.0 - 02/19 MH 31.0 /2014 [facility] HEMATOLOGY MCHC 34.0 32.0 - 02/19 MH 36.0 /2014 [facility] HEMATOLOGY RDW 13.3 11.5 - 02/19 MH 14.5 /2014 [facility] HEMATOLOGY Hct 31.0 42.0 - 02/19 MH 54.0 /2014 [facility] HEMATOLOGY MCV 89.6 80.0 - 02/19 MH 94.0 /2014 [facility] HEMATOLOGY MPV 9.4 7.4 - 10.4 02/19 /2014 [facility] HEMATOLOGY Platelet 188 133 - 450 02/19 /2014 [facility] HEMATOLOGY Hgb 10.5 14.0 - 02/19 MH 18.0 [facility] HEMATOLOGY WBC 7.7 3.7 - 10.4 02/19 [facility] HEMATOLOGY RBC 3.46 4.70 - 02/19 MH 6.10 [facility] CHEM PANEL Lactic Acid 1.4 0.5 - 2.2 02/18 MH [facility] ELECTROLYT Sodium Lvl 133 135 - 145 02/18 [facility] CHEM PANEL B/C Ratio 11 6 - 25 02/18 [facility] CHEM PANEL A/G Ratio 1.0 0.7 - 1.6 02/18 [facility] CHEM PANEL Globulin 3.3 2.0 - 4.0 02/18 [facility] CHEM PANEL AGAP 9.5 10.0 - 02/18 MH 20.0 /2014 [facility] CHEM PANEL eGFR 76 02/18 <sup>2</sup>R esult [facility] Comment: The eGFR is calculated using the [...] Sodium Lvl 129 135 - 145 02/18 [facility] CHEM PANEL Bili Total 0.7 0.2 - 1.3 02/18 [facility] CHEM PANEL AST 31 0 - 37 02/18 [facility] CHEM PANEL ALT 25 0 - 65 02/18 [facility] CHEM PANEL Alk Phos 32 39 - 136 02/18 [facility] CHEM PANEL Total 6.5 6.4 - 8.4 02/18 [facility] CHEM PANEL Potassium 3.5 3.5 - 5.1 02/18 MH l [facility] CHEM PANEL Albumin Lvl 3.2 3.5 - 5.0 02/18 [facility] CHEM PANEL CO2 28 24 - 32 02/18 [facility] CHEM PANEL Chloride Lvl 95 95 - 109 02/18 [facility] CHEM PANEL Calcium Lvl 8.2 8.5 - 10.5 02/18 [facility] CHEM PANEL Glucose Lvl 147 70 - 99 02/18 <sup>5</sup>I nterpretive [facility] Data: Adult reference range values reflect the clinical guidelines
of the [place] [employer]. CHEM PANEL Creatinine 1.0 0.5 - 1.4 02/18 [facility] CHEM PANEL BUN 11 7 - 22 02/18 [facility] ELECTROLYT AGAP 10.5 10.0 - 02/18 MH ES 20.0 /2014 [facility] ELECTROLYT Calcium Lvl 8.4 8.5 - 10.5 02/18 [facility] ELECTROLYT CO2 27 24 - 32 02/18 ES [facility] ELECTROLYT Chloride Lvl 96 95 - 109 02/18 [facility] ELECTROLYT eGFR 76 02/18 <sup>3</sup>R esult [facility] Comment: The eGFR is calculated using the [...] 3.5 3.5 - 5.1 02/18 MH ES Lv [facility] ELECTROLYT Sodium Lvl 130 135 - 145 02/18 [facility] ELECTROLYT Creatinine 1.0 0.5 - 1.4 02/18 MH ES Lvl [facility] ELECTROLYT BUN 11 7 - 22 02/18 [facility] ELECTROLYT Glucose Lvl 145 70 - 99 02/18 <sup>6</sup>I nterpretive [facility] Data: Adult reference range values reflect the clinical guidelines
of the [place] [employer]. HEMATOLOGY Lymphocytes 12.7 20.0 - 02/18 MH 40.0 /2014 [facility] HEMATOLOGY Segs 74.1 45.0 - 02/18 MH 75.0 /2014 [facility] HEMATOLOGY Monocytes 12.6 2.0 - 12.0 02/18 /2014 [facility] HEMATOLOGY Monocytes # 1.6 0.0 - 0.8 02/18 MH /2014 [facility] HEMATOLOGY Lymphocytes 1.6 1.0 - 5.5 / MH # /2014 [facility] HEMATOLOGY Basophils 0.2 0.0 - 1.0 02/18 /2014 [facility] HEMATOLOGY Eosinophils 0.4 0.0 - 4.0 02/18 MH /2014 [facility] HEMATOLOGY Segs-Bands # 9.6 1.5 - 8.1 02/18 /2014 [facility] HEMATOLOGY Eosinophils 0.1 0.0 - 0.5 02/18 MH # /2014 [facility] HEMATOLOGY RBC 3.97 4.70 - 02/18 MH 6.10 /2014 [facility] HEMATOLOGY WBC 13.0 3.7 - 10.4 02/18 /2014 [facility] HEMATOLOGY MPV 9.7 7.4 - 10.4 02/18 /2014 [facility] HEMATOLOGY RDW 13.1 11.5 - 02/18 MH 14.5 /2014 [facility] HEMATOLOGY Platelet 202 133 - 450 02/18 /2014 [facility] HEMATOLOGY Hct 34.8 42.0 - 02/18 MH 54.0 /2014 [facility] HEMATOLOGY MCV 87.8 80.0 - 02/18 MH 94.0 /2014 [facility] HEMATOLOGY Hgb 11.9 14.0 - 02/18 MH 18.0 /2014 [facility] HEMATOLOGY MCH 30.1 27.0 - 02/18 MH 31.0 /2014 [facility] HEMATOLOGY MCHC 34.3 32.0 - 02/18 MH 36.0 /2014 [facility] CHEM PANEL Lactic Acid 1.1 0.5 - 2.2 02/18 MH Lvl /2014 [facility] LIPIDS VLDL 14 02/18 /2014 [facility] LIPIDS LDL 25 <=99 mg/dL 02/18 MH (Calculated) /2014 [facility] LIPIDS Chol 91 <=199 02/18 MH mg/dL /2014 [facility] LIPIDS CHD Risk 1.75 4.00 - 02/18 MH 7.30 [facility] LIPIDS HDL 52 >=61 mg/dL 02/18 /2014 [facility] LIPIDS Trig 71 <=149 02/18 MH mg/dL /2014 [facility] THYROID TSH 1.790 0.360 - 02/18 MH PANEL 3.740 /2014 [facility] BACTERIAL MRSA by PCR Negative 16 02/18 <sup>16</sup> MH - SEROLOGY (02/17/15 7:29 PM) Interpretiv e [facility] Data: Interpretive Data: The [facility] [employer] MRSA [...] by the [facility]. The [facility] is authorized under the Clinical Laboratory Improvement Amendment of 1988 (CLIA-88) to perform high complexity testing. CHEM PANEL Lactic Acid 1.0 0.5 - 2.2 02/18 Lvl /2014 [facility] HEMATOLOGY Platelet 193 133 - 450 02/18 MH /2014 [facility] HEMATOLOGY PTT 25.3 22.9 - 02/18 <sup>14</sup> MH 35.8 /2014 Interpretive [facility] Data: Heparin Therapeutic Range: 57 - 92 Seconds DRUG UDS Note See Note 8 02/17 <sup>8</sup>I MH SCREEN (02/17/15 4:40 PM) nterpretive [facility] Data: Drugs reported as positive have not been confirmed by a second
ia thod and should be used for medical [...] Negative 02/17 MH SCREEN Scr *NA* /2014 [facility] (02/17/15 4:40 PM) DRUG U Opiate Scr Negative Negative 02/17 MH SCREEN *NA* /2014 [facility] (02/17/15 4:40 PM) DRUG U Cannab Scr Negative Negative 02/17 MH SCREEN *NA* /2014 [facility] (02/17/15 4:40 PM) DRUG U Cocaine Positive Negative 02/17 MH SCREEN Scr *ABN* /2014 [facility] (02/17/15 4:40 PM) DRUG U Benzodia Negative Negative 02/17 MH SCREEN Scr *NA* /2014 [facility] (02/17/15 4:40 PM) DRUG U Marilee Scr Negative Negative 02/17 MH SCREEN *NA* /2014 [facility] (02/17/15 4:40 PM) DRUG U Amph Scr Negative Negative 02/17 MH SCREEN *NA* /2014 [facility] (02/17/15 4:40 PM) URINE AND UA Blood Negative Negative 02/17 [facility] (02/17/15 4:40 PM) /2014 [facility] [facility] URINE AND UA Glucose >=1000 Negative 02/17 [facility] mg/dL mg/dL /2014 [facility] URINE AND UA Bili Negative Negative 02/17 STOOL *NA* /2014 [facility] (02/17/15 4:40 PM) URINE AND UA Color Yellow Yellow 02/17 STOOL *NA* /2014 [facility] (02/17/15 4:40 PM) URINE AND UA Spec Grav 1.010 <=1.030 02/17 STOOL /2014 [facility] URINE AND UA Turbidity Clear Clear 02/17 [facility] (02/17/15 4:40 PM) /2014 [facility] [facility] URINE AND UA pH 6.0 5.0 - 8.0 02/17 STOOL /2014 [facility] URINE AND UA Leuk Est Negative Negative 02/17 [facility] (02/17/15 4:40 PM) /2014 [place] URINE AND UA Nitrite Negative Negative 02/17 [facility] (02/17/15 4:40 PM) /2014 [place] URINE AND UA 0.2 0.1 - 1.0 02/17 [facility] Urobilinogen /2014 [facility] URINE AND UA Ketones Negative Negative 02/17 [facility] mg/dL mg/dL /2014 [facility] URINE AND UA Protein Negative Negative 02/17 [facility] mg/dL mg/dL /2014 [facility] URINE AND UA RBC 0-2 /HPF 0 - 2 02/17 [facility] URINE AND UA Bacteria Few /HPF None Seen 02/17 STOOL /HPF /2014 [facility] URINE AND UA Sq Epi Few /LPF Few /LPF 02/17 STOOL [facility] URINE AND UA WBC 0-2 /HPF None Seen 02/17 STOOL /HPF /2014 [facility] CHEM PANEL Osmolality 255 280 - 300 02/17 [facility] URINE CHEM U Sodium 53 02/17 <sup>12</sup> MH Interpretive [facility] Data: No established reference ranges. URINE CHEM U Osmolality 344 300 - 800 02/17 [facility] URINE CHEM U Creatinine 36.2 02/17 <sup>11</sup> MH Interpretive [facility] Data: No established reference ranges. URINE CHEM U Chloride 72 02/17 [facility] CARDIAC CK MB 7.2 0.5 - 3.6 02/17 ENZYMES [facility] CARDIAC BNP 92 <=100 02/17 <sup>7</sup>I ENZYMES pg/mL /2014 nterpretive [facility] Data: Elevated results are in line with increasing severity of
con gestive heart failure. Minor elevations between 100 and 300
may be seen with Myocardial Ischemia, Sodium retaining drugs,
an d compensated/t reated heart failure. CARDIAC Total CK 493 12 - 191 02/17 ENZYMES /2014 [facility] CARDIAC CK MB Index 1.5 0.0 - 2.5 02/17 ENZYMES /2014 [facility] CARDIAC Troponin-I 0.11 0.00 - 02/17 ENZYMES 0.40 [facility] CHEM PANEL Procalcitoni <0.05 0.00 - 02/17 n Lvl ng/mL 0.10 /2014 [facility] CHEM PANEL Bili Total 0.7 0.2 - 1.3 02/17 /2014 [facility] CHEM PANEL AST 28 0 - 37 02/17 /2014 [facility] CHEM PANEL Globulin 3.5 2.0 - 4.0 02/17 [facility] CHEM PANEL Total 7.3 6.4 - 8.4 02/17 [facility] CHEM PANEL Albumin Lvl 3.8 3.5 - 5.0 02/17 [facility] CHEM PANEL Alk Phos 38 39 - 136 02/17 [facility] CHEM PANEL ALT 24 0 - 65 02/17 [facility] CHEM PANEL A/G Ratio 1.1 0.7 - 1.6 02/17 [facility] CHEM PANEL B/C Ratio 11 6 - 25 02/17 /2014 [facility] HEMATOLOGY Basophils # 0.1 0.0 - 0.2 02/17 /2014 [facility] HEMATOLOGY Segs-Bands # 10.7 1.5 - 8.1 02/17 /2014 [facility] HEMATOLOGY Lymphocytes 1.2 1.0 - 5.5 02/17 # /2015 [facility] HEMATOLOGY Monocytes # 1.5 0.0 - 0.8 02/17 /2014 [facility] HEMATOLOGY Segs 79.6 45.0 - 02/17 75.0 /2014 [facility] HEMATOLOGY Lymphocytes 8.8 20.0 - 02/17 MH 40.0 /2014 [facility] HEMATOLOGY Monocytes 10.8 2.0 - 12.0 02/17 /2014 [facility] HEMATOLOGY Basophils 0.5 0.0 - 1.0 02/17 /2014 [facility] HEMATOLOGY Eosinophils 0.3 0.0 - 4.0 02/17 /2014 [facility] HEMATOLOGY PT 13.3 12.0 - 02/17 MH 14.7 /2014 [facility] HEMATOLOGY PTT 26.3 22.9 - 02/17 <sup>15</sup> MH 35.8 /2014 Interpretive [facility] Data: Heparin Therapeutic Range: 57 - 92 Seconds HEMATOLOGY INR 1.01 0.85 - 02/17 <sup>13</sup> MH 1.17 /2014 Interpretive [facility] Data: RECOMMENDED RANGES FOR PROTIME INR:
2.0-3.0 for most medical and surgical thromboemboli c states.
2.5-3.5 for artificial heart valves and recurrent embolism.<br/ >
INR SHOULD BE USED ONLY FOR PATIENTS ON STABLE ANTICOAGULANT THERAPY. HEMATOLOGY MCHC 33.5 32.0 - 02/17 MH 36.0 /2014 [facility] HEMATOLOGY RDW 13.0 11.5 - 02/17 MH 14.5 /2014 [facility] HEMATOLOGY Hct 39.1 42.0 - 02/17 MH 54.0 /2014 [facility] HEMATOLOGY WBC 13.5 3.7 - 10.4 02/17 /2014 [facility] HEMATOLOGY MCV 90.1 80.0 - 02/17 MH 94.0 /2014 [facility] HEMATOLOGY MCH 30.2 27.0 - 02/17 MH 31.0 /2014 [facility] HEMATOLOGY MPV 9.5 7.4 - 10.4 02/17 [facility] HEMATOLOGY RBC 4.34 4.70 - 02/17 6.10 [facility] HEMATOLOGY Hgb 13.1 14.0 - 02/17 MH 18.0 /2014 [facility] TOXICOLOGY Etoh (%) <0.003 02/17 <sup>9</sup>I nterpretive [facility] Data: Ethanol testing results should be used for medical purposes only.
Neg ative Range: <0.003%
T oxic Range: >0.25% TOXICOLOGY Ethanol Lvl <3 02/17 <sup>10</sup> Interpretive [facility] Data: Negative Range: <3 mg/dL
Tox ic Range: >250 mg/dL URINE AND UA Ketones Negative Negative 02/17 STOOL *NA* /2014 [facility] (02/17/15 10:08 AM) URINE AND UA Bili Negative Negative 02/17 STOOL *NA* /2014 [facility] (02/17/15 10:08 AM) URINE AND UA 0.2 0.1 - 1.0 02/17 STOOL Urobilinogen /2014 [facility] URINE AND UA Blood Negative Negative 02/17 STO[facility] (02/17/15 10:08 AM) /2014 [place] URINE AND UA Nitrite Negative Negative 02/17 STO[facility] (02/17/15 10:08 AM) /2014 [facility] URINE AND UA Leuk Est Negative Negative 02/17 STO[facility] (02/17/15 10:08 AM) /2014 [facility] URINE AND UA Spec Grav <=1.005 <=1.030 02/17 STOOL *NA* /2014 [facility] (02/17/15 10:08 AM) URINE AND UA Glucose 100 mg/dL Negative 02/17 STOOL mg/dL /2014 [facility] URINE AND UA Protein Negative Negative 02/17 STOOL (02/17/15 10:08 AM) [place] URINE AND UA pH 7.0 5.0 - 8.0 02/17 STOOL /2014 [facility] URINE AND UA Color Yellow Yellow 02/17 STOOL *NA* /2014 [facility] (02/17/15 10:08 AM) URINE AND UA Turbidity Clear Clear 02/17 STOOL (02/17/15 10:08 AM) [place] URINE AND UA WBC None Seen None Seen 02/17 STOOL (02/17/15 10:08 AM) [place] URINE AND UA RBC None Seen 0 - 2 02/17 [facility]OOL (02/17/15 10:08 AM) [place] URINE AND UA Bacteria None Seen None Seen 02/17 STOOL (02/17/15 10:08 AM) [place] URINE AND UA Sq Epi None Seen Few 02/17 STOOL (02/17/15 10:08 AM) [place] CHEM PANEL eGFR 68 06/10 <sup>2</sup>R esult [facility] Comment: The eGFR is calculated [...] PANEL Globulin 3.3 2.0 - 4.0 06/10 [facility] CHEM PANEL A/G Ratio 1.0 0.7 - 1.6 06/10 [facility] CHEM PANEL Alk Phos 43 39 - 136 06/10 [facility] CHEM PANEL Bili Total 0.3 0.2 - 1.3 06/10 [facility] CHEM PANEL B/C Ratio 17 6 - 25 06/10 [facility] CHEM PANEL AGAP 10.8 10.0 - 10 20.0 [facility] CHEM PANEL Calcium Lvl 9.3 8.5 - 10.5 06/10 [facility] CHEM PANEL Total 6.7 6.4 - 8.4 06/10 [facility] CHEM PANEL Albumin Lvl 3.4 3.5 - 5.0 06/10 [facility] CHEM PANEL ALT 22 0 - 65 06/10 [facility] CHEM PANEL AST 15 0 - 37 06/10 [facility] CHEM PANEL CO2 36 24 - 32 06/10 [facility] CHEM PANEL Glucose Lvl 301 70 - 99 06/10 <sup>5</sup>I nterpretive [facility] Data: Adult reference range values reflect the clinical guidelines
of the [employer]. CHEM PANEL BUN 19 7 - 22 06/10 [facility] CHEM PANEL Sodium Lvl 137 135 - 145 06/10 [facility] CHEM PANEL Creatinine 1.1 0.5 - 1.4 06/10 [facility] CHEM PANEL Potassium 4.8 3.5 - 5.1 06/10 [facility] CHEM PANEL Chloride Lvl 95 95 - 109 06/10 [facility] HEMATOLOGY MCH 31.6 27.0 - 06/10 31.0 [facility] HEMATOLOGY MCHC 34.5 32.0 - 06/10 36.0 [facility] HEMATOLOGY MCV 91.6 80.0 - 06/10 94.0 /2013 [facility] HEMATOLOGY Hct 41.8 42.0 - 06/10 54.0 [facility] [facility] HEMATOLOGY Platelet 187 133 - 450 06/10 [facility] HEMATOLOGY MPV 10.2 7.4 - 10.4 06/10 [facility] HEMATOLOGY RDW 14.1 11.5 - 06/10 14.5 [facility] HEMATOLOGY RBC 4.56 4.70 - 06/10 6.10 [facility] HEMATOLOGY Hgb 14.4 14.0 - 06/10 18.0 [facility] HEMATOLOGY WBC 14.8 3.7 - 10.4 06/10 [facility] CARDIAC Total CK 67 12 - 191 06/09 ENZYMES /2013 [facility] CARDIAC Troponin-I <0.02 0.00 - 06/09 ENZYMES 0.40 [facility] CARDIAC BNP 13 <=100 06/09 <sup>7</sup>I ENZYMES pg/mL /2013 nterpretive [facility] Data: Elevated results are in line with increasing severity of
con gestive heart failure. Minor elevations between 100 and 300
may be seen with Myocardial Ischemia, Sodium retaining drugs,
an d compensated/t reated heart failure. CARDIAC Total CK 65 12 - 191 06/09 ENZYMES [facility] CARDIAC Troponin-I <0.02 0.00 - 06/09 ENZYMES 0.40 [facility] CHEM PANEL eGFR 76 06/09 <sup>3</sup>R esult [facility] Comment: The eGFR is calculated using the [...] Creatinine 1.0 0.5 - 1.4 06/09 Lvl /2013 [facility] HEMATOLOGY PTT 29.8 22.9 - 06/09 <sup>10</sup> MH 35.8 /2013 Interpretive [facility] Data: Heparin Therapeutic Range: 57 - 92 Second[facility] HEMATOLOGY Platelet 174 133 - 450 06/09 [facility] URINE AND UA Color Yellow Yellow 06/09 STOOL *NA* /2013 [facility] (06/08/14 9:15 PM) URINE AND UA Leuk Est Negative Negative 06/09 [facility] (06/08/14 9:15 PM) [facility] URINE AND UA Nitrite Negative Negative 06/09 [facility] (06/08/14 9:15 PM) [facility] URINE AND UA 0.2 0.1 - 1.0 06/09 [facility]OOL Urobilinogen /2013 [facility] URINE AND UA Glucose Negative Negative 06/09 [facility] (06/08/14 9:15 PM) [facility] [facility] URINE AND UA Protein Trace Negative 06/09 [facility] *ABN* /2013 [facility] (06/08/14 9:15 PM) URINE AND UA pH 6.0 5.0 - 8.0 06/09 [facility] URINE AND UA Spec Grav >=1.030 <=1.030 06/09 STOOL *ABN* /2013 [facility] (06/08/14 9:15 PM) URINE AND UA Ketones Negative Negative 06/09 STOOL *NA* /2013 [facility] (06/08/14 9:15 PM) URINE AND UA Bili Negative Negative 06/09 STOOL *NA* /2013 [facility] (06/08/14 9:15 PM) URINE AND UA Turbidity Clear Clear 06/09 [facility] (06/08/14 9:15 PM) [facility] URINE AND UA Blood Negative Negative 06/09 [facility] (06/08/14 9:15 PM) [place] URINE AND UA WBC 0-2 /HPF None Seen 06/09 STOOL /HPF /2013 [facility] URINE AND UA Mucus Rare /LPF None Seen 06/09 STOOL /LPF [facility] URINE AND UA Sq Epi Rare /LPF Few /LPF 06/09 [facility] URINE AND UA RBC 0-2 /HPF 0 - 2 06/09 [facility] URINE AND UA Fine Gran 0-2 /LPF None Seen 06/09 STOOL /LPF [facility] CARDIAC CK MB 1.3 0.5 - 3.6 06/09 ENZYMES [facility] CARDIAC Total CK 93 12 - 191 06/09 ENZYMES [facility] CARDIAC Troponin-I <0.02 0.00 - 06/09 ENZYMES 0.40 /2014 [facility] CARDIAC BNP 18 <=100 06/09 <sup>8</sup>I ENZYMES pg/mL /2013 nterpretive [facility] Data: Elevated results are in line with increasing severity of
con gestive heart failure. Minor elevations between 100 and 300
may be seen with Myocardial Ischemia, Sodium retaining drugs,
an d compensated/t reated heart failure. CARDIAC CK MB Index 1.4 0.0 - 2.5 06/09 MH ENZYMES [facility] CHEM PANEL eGFR 68 06/09 <sup>4</sup>R esult [facility] Comment: The eGFR is calculated using the [...] 0.90 0.85 - 06/09 <sup>9</sup>I 1.17 nterpretive [facility] Data: RECOMMENDED RANGES FOR PROTIME INR:
2.0-3.0 for most medical and surgical thromboemboli c states.
2.5-3.5 for artificial heart valves and recurrent embolism.<br/ >
INR SHOULD BE USED ONLY FOR PATIENTS ON STABLE ANTICOAGULANT THERAPY. HEMATOLOGY PTT 28.6 22.9 - 06/09 <sup>11</sup> MH 35.8 /2014 Interpretive [facility] Data: Heparin Therapeutic Range: 57 - 92 Seconds HEMATOLOGY PT 12.1 12.0 - 06/09 14.7 [facility] CHEM PANEL ALT 29 0 - 65 06/09 [facility] CHEM PANEL A/G Ratio 0.9 0.7 - 1.6 06/09 [facility] CHEM PANEL Alk Phos 53 39 - 136 06/09 [facility] CHEM PANEL AST 24 0 - 37 06/09 [facility] CHEM PANEL Bili Total 0.5 0.2 - 1.3 06/09 [facility] CHEM PANEL B/C Ratio 18 6 - 25 06/09 [facility] CHEM PANEL Globulin 4.0 2.0 - 4.0 06/09 [facility] CHEM PANEL Total 7.5 6.4 - 8.4 06/09 [facility] CHEM PANEL Albumin Lvl 3.5 3.5 - 5.0 06/09 [facility] CHEM PANEL Potassium 4.5 3.5 - 5.1 06/09 Lvl [facility] CHEM PANEL CO2 41 24 - 32 06/09 <sup>1</sup>R esult [facility] Comment: Critical Result(s) called to Tehodore Johnson at 06/08/2014 20:56 by [facility]. Read back OK. CHEM PANEL Chloride Lvl 96 95 - 109 06/09 [facility] CHEM PANEL Calcium Lvl 9.2 8.5 - 10.5 06/09 [facility] CHEM PANEL AGAP 6.5 10.0 - 06/09 20.0 [facility] CHEM PANEL Sodium Lvl 139 135 - 145 06/09 [facility] CHEM PANEL Creatinine 1.1 0.5 - 1.4 06/09 [facility] CHEM PANEL BUN 20 7 - 22 06/09 [facility] CHEM PANEL Glucose Lvl 199 70 - 99 06/09 <sup>6</sup>I nterpretive [facility] Data: Adult reference range values reflect the clinical guidelines
of the [employer]. HEMATOLOGY MCV 90.8 80.0 - 06/09 94.0 /2013 [facility] HEMATOLOGY Hct 45.4 42.0 - 06/09 54.0 /2013 [facility] HEMATOLOGY MCH 31.6 27.0 - 06/09 31.0 [facility] HEMATOLOGY RBC 5.00 4.70 - 06/09 6.10 [facility] HEMATOLOGY Hgb 15.8 14.0 - 06/09 18.0 /2013 [facility] HEMATOLOGY WBC 8.5 3.7 - 10.4 06/09 [facility] HEMATOLOGY MCHC 34.8 32.0 - 06/09 36.0 /2013 [facility] HEMATOLOGY Platelet 186 133 - 450 06/09 [facility] HEMATOLOGY RDW 14.1 11.5 - 06/09 MH 14.5 /2014 [facility] HEMATOLOGY MPV 9.6 7.4 - 10.4 06/09 /2013 [facility] HEMATOLOGY Eosinophils 0.3 0.0 - 0.5 06/09 MH # /2014 [facility] HEMATOLOGY Basophils # 0.1 0.0 - 0.2 06/09 [facility] HEMATOLOGY Monocytes # 1.1 0.0 - 0.8 06/09 [facility] HEMATOLOGY Segs 62.9 45.0 - 06/09 MH 75.0 /2013 [facility] HEMATOLOGY Lymphocytes 1.7 1.0 - 5.5 06/09 # /2013 [facility] HEMATOLOGY Eosinophils 3.0 0.0 - 4.0 06/09 [facility] HEMATOLOGY Basophils 1.3 0.0 - 1.0 06/09 [facility] HEMATOLOGY Monocytes 13.0 2.0 - 12.0 06/09 [facility] HEMATOLOGY Lymphocytes 19.8 20.0 - 06/09 40.0 /2013 [facility] HEMATOLOGY Segs-Bands # 5.3 1.5 - 8.1 06/09 [facility] Pathology Reports No Data Provided for This Section Diagnostic Reports Report Value Date Source Chest 1view DX Clinical Indication: - R/O PNA 06/05/2017 [facility] Comparison: 05/24/2017 FINDINGS: AP chest radiograph was obtained. MEDIASTINUM: The cardiac harini houette is normal in size. The aorta demonstrates atherosclerotic calcification. LUNGS: Lung volumes are unch anged. There is hazy opacity within the right mid and lower lung with blunting of the right costophrenic angle and silhouetting the right hemidiaphragm. There is linear opacity in the left lung base. BONES: The visualized osseous structures are unr emarkable. IMPRESSION: 1. Worsening right mid and lower lung airspace disease with suggestion of a small effusion. Atelectasis in the left lung base. SL: [id number] Abdomen RUQ US Clinical Indication: - RUQ pain; 06/03/2017 [facility] Comparison: None TECHNIQUE: Grayscale and limited color sonographic evaluation of the right upper quadrant of the abdomen and gallbladder region was performed with standard technique. FINDINGS: LIVER: The liver is enlarged at 18.9 cm with increased parenchymal echotexture. BILE DUCTS: The intrahepatic and extrahe patic bile ducts are not dilated with the common bile duct measuring mm. The distal common bile duct is not well seen. GALLBLADDER: The gallbladder wall is thickened at 5.8 cm with gallbladder sludge. PANCREAS: The visualized pancreas appears unremarkable. KIDNEY: The right kidney measures 9.3 x 3.3 x 4.5 cm. There is normal renal contou r and morphology, with normal parenchymal echotexture. There is no hydronephrosis. AORTA AND INFERIOR VENA CAVA: Visualized portions appear unremarkable. ASCITES: There is a large amount of right upper quadrant abdominal ascites. IMPRESSION: 1. Gallbladder sludge with q uestion of acute cholecystitis versus pseudothickening secondary to ascites. 2. Hepatic steatosis and hepatomegaly with assoc iated ascites. SL: [id number] Retroperitoneal Complete Clinical Indication: Renal failure 05/03 [facility] Comparison: CT dated 2017 TECHNIQUE: Multiple longitudinal and tr ansverse real time sonographic images of the kidneys and urinary bladder are obtained. FINDINGS: KIDNEY: The right kidney measures 8.5 x 4.1 x 5.1 cm. The left kidney measures 14 x 7.7 x 5.5 cm. The kidneys are normal in si ze, shape, contour, and position. The right kidney is atrophic. There is increased echogenicity to the right renal cortex. Left renal cortex appears normal in echogenicity. There is no hydronephrosis, nephrolithiasis, or abnormal perinephric collections. BLADDER: Bladder is emptied by Merida catheter. ASCITES: No ascites noted. IMPRESSION: Atrophic echogenic right kidney. No hydronephros is. SL: [id number] Chest 1view DX Clinical Indication: Dyspnea - low O2 stats. [facility] Comparison: 05/23. TECHNIQUE: AP 1 view chest radiograph was perfor med. FINDINGS: LUNGS: Normal lung volumes. Mild linear atelectasis within the left lung base. Lungs are otherwise clear. No pleural effusions or pneumothorax. HEART AND MEDIASTINUM: The heart size is normal. The pulmonary vasculature is normal. The mediastinal contour is normal. The trachea is midline. OSSEOUS STRUCTURES: No acute abnormality seen. IMPRESSION: 1. Left basilar atelectasis. Otherwise no acute cardiopulmonary disease. SL: [id number] Chest 2 views DX Clinical Indication: - cholecystitis. 05/23/20 17 [facility] Comparison: 07/2016. TECHNIQUE: PA and lateral [...] IMPRESSION: 1. No acute cardiopulmonary disease. SL: [id number] Abdomen RUQ US Clinical Indication: ; Ab normal CT, upper abdominal pain and cramping since last night 2017 [facility] Comparison: CT same day TECHNIQUE: Grayscale and limited color sonographic evaluation of the right upper quadrant of the abdomen and gallbladder region was performed with standard technique. FINDINGS: Limited due to bowel gas and body habitus LIVER: The visualized liver shows n ormal contour, upper normal size at 17 cm, and morphology with increase echotexture compatible with hepatic steatosis. The limited visualized portal vein is grossly pa tent. BILE DUCTS: The intrahepatic and extrahe patic bile ducts are not dilated with the common bile duct measuring 3 mm. The distal common bile duct is not well seen. CT same day shows more mid to distal common bile duct dilatation GALLBLADDER: Not well-visualized due to l imits of the exam. There is suggestion for gallbladder wall thickening. There is some sludge within the lumen. Portions of the gallbladder neck aspect is not well-visualized. Cannot adequately evaluate the yocasta hepatis or peripancreatic region. CT same day does show some fluid. Differential includes cholec ystitis, correlate with symptomatology. If there is further clinical need for imaging workup can consider HIDA scan PANCREAS: Not adequately visualized due to bowel gas and b eddie habitus. KIDNEY: The right kidney measures 8.9 x 4.5 x 4.7 cm. There is normal renal contou r and morphology, with normal parenchymal echotexture. There is no hydronephrosis. AORTA AND INFERIOR VENA CAVA: Not adequately visualized. ASCITES: There is no right upper quadrant abdominal ascit es. IMPRESSION: 1. Extremely limited study due to bowel gas an d body habitus 2. There is hepatic steatosis 3. Gallbladder not well vis ualized. There is wall thickening and sludge. Portions of gallbladder cannot be fully evaluated to completely exclude underlying stones. CT same day does suggest more distal common bile duct mild dilata tion and yocasta hepatis region fluid. See above discussion. . SL: [id number] ED Abdomen/Pelvis IV Clinical Indication: - abd pain; abdominal pain and cramping since last night, history of COPD reflux hypertension abdominal aorta aneurysm repair 2017 [facility] contrast only CT Comparison: None Technique: Multi-detector CT imaging of the abdomen and pelvis is performed with contrast. Coronal and sagittal reconstructions were obtained. IV CONTRAST: 100 mL of Omnipaque GI CONTRAST: No oral contrast was administered w hich can limit assessment. CT Radiation Dose: DLP 10:15 mGy-cm FINDINGS: CT ABDOMEN WITH CONTRAST: LUNG BASES: Unremarkable. ABDOMINAL SOLID ORGANS: Gallbladder is distended. Pe richolecystic inflammatory stranding and trace fluid yocasta hepatis region noted. Trace fluid also noted extending right paracolic gutter region. Additionally there are enlarg ed periportal and pericaval lymph nodes measuring up to 1.4 x 2.1 cm. The extrahepatic common bile duct is mildly dilated at 12 mm. No obvious significant intrahepatic ductal dilatation. No CT radiation gallstones however can cassy elate further with ultrasound to fully evaluate biliary and gallbladder pathology to exclude underlying radiolucent stones or other process. The right kidney is smaller as compared to the left kidney measuring 8 cm in length as compared to 11.8 cm. Kidneys enhance symmetrically. Vascular calcifications are present. There are tiny low densiti es bilaterally measurement 1 .4 cm possibly of renal cysts, some of which are too small to fully characterize by imaging. The contrast enhanced images of the liver, spleen, pancreas, adrenals are normal. STOMACH AND BOWEL: Lack of oral contrast limits assessment. Stomach and small and large bowel loops are grossly unremarkable. Appendix not visualized. PERITONEUM AND RETROPERITONEUM: There is no abdominal lympha denopathy. There is no pneumoperitoneum. There are no retroperitoneal abnormalities. VASCULAR STRUCTURES: Patient is post abdominal aortic aneurysm endogr aft repair. Specifically there is endogr aft extending at and below level of renal arteries with 2 limbs extending to the bilateral common iliac arteries. Contrast timing and non-CTA study limits full evaluation. Th e red cliff aneurysm sac measur es 7.7 x 7 and extending 10.3 cm in length. No retroperitoneal collections. Axial images 45 through 49 s how subtle densities within the aneurysm sac either calcification versus punctate areas of contrast not completely excluded. This is a single phase study however and evaluati on for any of the endoleak s ubtypes cannot adequately be performed. If there is clinical need to further evaluate can consider comparison with remote imaging if available or short follow-up with endoleak pre and postcontrast and delayed CTA imaging. Mesenteric and renal artery takeoffs are not wel l evaluated. The inferior vena cava is unremarkable. The mesenteric vessels and portal veinous struct ures are grossly patent. OSSEOUS STRUCTURES: L4-5 and L5-S1 degenerative changes with loss of disc spacing and vacuum disc phenomenon. There is mild retrolisthesis L4 on L5 at 5 mm. Likely superimposed foraminal stenosis at L4-5. No obvious acute osseous adenopathy. ------- CT PELVIS WITH CONTRAST: BOWEL: Rectosigmoid colon is unremarkable. PERITONEAL AND EXTRAPERITONEAL REGIONS: There is no pelvic free flui d or lymphadenopathy. The inguinal regions are unremarkable. BLADDER / : The bladder is unremarkable. OSSEOUS STRUCTURES: There are no significant oss eous abnormalities seen. ----- IMPRESSION: 1. Gallbladder distended an d shows pericholecystic fat stranding and mild fluid as well as enlarged periportal lymph nodes and extrahepatic mild biliary dilatation. Differential includes sequela of cho lecystitis. May consider further workup to inclu de dedicated sonography. 2. Patient is post AAA endo graft repair as discussed above not well evaluated by this single phase contrast study. No obvious acute retroperitoneal collections. 3. Right renal atrophy is noted as compared to the left. Spine lumbar wo contrast Clinical Indication: Gait abnormalities 07/29/2016 [facility] MRI Comparison: None TECHNIQUE: Multiplanar T1, T 2, STIR weighted noncontrast MRI of the lumbar spine is performed on the 1.5 Elli magnet. FINDINGS: ALIGNMENT AND GENERAL ASSESS MENT: The conus medullaris is normally positioned and there is no intrathecal mass. There is no osseous metastatic disease or compression fracture deformity of the visualized thoracolumbar vertebrae. Th ere is straightening of the normal lumbar lordosis. There is a mid pole right renal cyst of 1.8 cm and a left cyst of 1.5 cm. The abdominal aorta is partially visualized and there is a aneurysm, with ci rcumferential atheromatous plaquing and thrombus. An intravascular stent may be present. The partially visualized sacroiliac joints are intact. DISC SPACES: T12-L1: Disc spaces desiccat ed and there is a 1 mm central protrusion and annular fissure. L1-L2: There is no significa nt disc bulge, protrusion, or degenerative change and no spinal or foraminal stenosis. L2-L3: There is a minute central Schmorl's node. L3-L4: There is a minute Schmorl's node the infe rior endplate. L4-L5: The disc space is aliza iccated and narrowed and there is a 4 mm retrolisthesis and bulge of the annulus along with lateral spondylosis. There is minimal distraction of the facet joints with fluid w ithin the joint capsule. The re is minimal to moderate proximal left and minimal right foraminal stenosis. There is an anterior Schmorl's node with Modic 2 signal alteration. L5-S1: The disc space is min imally desiccated and narrowed and there is a 2 to 3 mm retrolisthesis and bulging annulus. There is minimal distal right lateral spondylosis and right L5 foraminal stenosis. There is no central or S1 lateral recess stenos is. IMPRESSION: L4-L5: The disc space is aliza iccated and narrowed and there is a 4 mm retrolisthesis and bulge of the annulus along with lateral spondylosis. There is minimal distraction of the facet joints with fluid w ithin the joint capsule. The re is minimal to moderate proximal left and minimal right foraminal stenosis. There is an anterior Schmorl's node with Modic 2 signal alteration. L5-S1: The disc space is min imally desiccated and narrowed and there is a 2 to 3 mm retrolisthesis and bulging annulus. There is minimal distal right lateral spondylosis and right L5 foraminal stenosis. There is no central or S1 lateral recess stenos is. There is a partially visuali zed and circumferentially atheromatous aneurysm of the abdominal aorta. SL: [id number] Spine cervical wo Patient Name: ELIDIA Castro OMA 07/29/2016 [facility] contrast MRI : 1945; Age: 71 years y/o Male MR: [id number] Study: Spine cervical wo contrast MRI 07/28/2016 12:32 PM CLINICAL REVIEWER Ordering Physician: Mata Kraft MD Clinical Indication: Gait abnormalities; bilater al lower extremity weakness Comparison: CT on 02/17/2015 TECHNIQUE: Multiplanar T1, T 2, and STIR weighted MRI of the cervical spine is performed. FINDINGS: ALIGNMENT AND GENERAL ASSESS MENT: There is normal alignment of the cervical spine without trauma or bony destruction. No aggressive bone marrow abnormality is present. The prevertebral soft tissues, johann anto-dental interspace and c raniocervical junction are within normal limits. The facet joint alignment, spinolaminar and spinous process alignments are unremarkable. The posterior paraspinal soft tissues are unremarkable. The visualized brainstem and craniocervical junction, including C1-C2, are unremarkable. The cervical spinal cord is normal in caliber, contour, configuration, and signal. DISC SPACES: Generalized moderate to severe dege nerative changes. C2-C3: Normal throughout with minor spondylotic changes. C3-C4: Severe degenerative d isc desiccation with spondylotic disc bulge and early facet arthropathy. No stenosis. Mild facet arthropathy. C4-C5: Severe degenerative d isc desiccation with a broad-based but shallow central disc protrusion slightly greater to the left not resulting in significant lateral recess or foraminal or canal stenosis . There is only mild central canal narrowing or early stenosis. Facet arthropathy. C5-C6: There are degenerativ e disc desiccation with osteophytic ridging of the vertebral body endplates due to uncovertebral hypertrophy worse anteriorly than laterally with early facet arthropathy. Ove rall mild early canal stenosis but no ti ght stenosis or nerve root compromise. C6-C7: Severe degenerative d isc desiccation with marked narrowing of the disc space but only minor secondary changes of spondylosis. No canal or recess or foraminal stenosis. Minimal, if any, changes of facet arthropathy. C7-T1 and the included upper cervical levels: The discs are normal.. There is no central or foraminal stenosis. The facet joints are unremarkable. IMPRESSION: Moderate to severe degenerat forest changes of the cervical spine primarily at C3- C4 through C6-C7 with mild early central canal stenosis at C4-C5 and C5-C6 without significant compression of the thecal sac or nerve root involvement. Overall, no real percy nge since CT of 02/17/2015 SL: [id number] Carotid artery Doppler 07/28/2016 LIZ garcía Clinical Indication: Stroke, ischemic; Comparison: None TECHNIQUE: Dickens-scale, color Doppler an d spectral Doppler of the carotid arteries was performed. Any reported ICA stenoses indirectly reference the distal internal carotid diameter as the denominator for the sten osis measurement, utilizing consensus panel philly aguilar. FINDINGS: RIGHT: Moderate atheromatous pl aque ICA PSV 138 cm/sec CCA PSV 84 cm/sec ICA/CCA ratio 1.64 Vertebral flow is antegrade. External carotid artery is patent. LEFT: Moderate atheromatous p laque ICA PSV 90 cm/sec CCA PSV 113 cm/sec ICA/CCA ratio 0.79 Vertebral flow is antegrade. External carotid artery is patent. IMPRESSION: 1. RIGHT: ICA stenosis 50-69 % by velocity crite cedrick. 2. LEFT: ICA stenosis <50 % by velocity criteri a. Consensus panel Doppler US criteria for diagnosi s of ICA stenosis: Stenosis (%) ICA PSV (cm/sec) ICA/CCA ratio <50 <125 <2.0 50-69 125-230 2.0-4.0 >70 but less than >230 >4.0 near occlusion Near occlusion High, low, or Variable undetectable : [id number] Brain w/wo contrast MRI Patient Name: ELIDIA ERNANDEZ 6 [facility] : 1945; Age: 71 years y/o Male MR: [id number] Study: Brain w/wo contrast MRI 07/28/2016 1:29 A M CLINICAL REVIEWER Ordering Physician: Sofi Rapp MD Clinical Indication: Weakness; lower extremity w eakness bilaterally Comparison: CT obtained yesterday. TECHNIQUE: Multiplanar pre- and post-gadolinium contrast-enhanced MRI of the brain is performed on a 1.5 Elli magnet. Contrast: 16 cc of gadolinium was administered. FINDINGS: BRAIN PARENCHYMA: The brain parenchyma has normal signal with normal dickens-white junction, sulci, and gyri. There is no mass effect or midline shift. There is no extra-axial fluid collection or intrapare nchymal hemorrhage. The rene us callosum appears normal. The white matter, basal ganglia, and posterior fossa, including the brainstem, demonstrate generally mild chronic small vessel changes predominant ly in the white matter and t he david. There is no diffusion weighted imaging or ADC map abnormality to suggest acute/subacute ischemia. There is no magnetic susceptibility to suggest recent or remote int racranial hemorrhage. There is no abnormal contr ast enhancement. CEREBELLOPONTINE REGIONS AND SKULL BASE: The cerebellopontine angles appear unremarkable. The skull base, craniocervical junction, and brainstem are normal. The optic chiasm is normal. The sellar and pineal regions are unremarkable. VENTRICLES: CSF spaces are p rominent over the cerebral hemispheres due to cortical atrophy moderate in severity. The lateral ventricles, third and fourth ventricles appear unremarkable. The basilar cisterns are normal. VISUALIZED VESSELS: The veno us sinuses are grossly unremarkable. The expected intracranial flow voids present. ORBITS, MASTOIDS AND PARANAS AL SINUSES: The visualized orbits are unremarkable. The paranasal sinuses are unremarkable. The mastoid air cells demons trate fluid retention worse on the right but otherwise are clear. IMPRESSION: Moderate cortic al atrophy and mild chronic small vessel changes in otherwise unremarkable MR brain before and after contrast. Fluid retention in the mastoids greater to the right. SL: WR3-M Chest 1view DX Clinical Indication: Dizziness 07/27/2016 [facility] Comparison: 02/17/2015 and 07/05/2010 FINDINGS: An AP view of the chest is submitted for interpr etation. Relatively stable-appearing 2 cm right basilar lung nodule, grossly unchanged since 2009. Lungs otherwise clear Heart size is normal. Central pulmonary vasculat ure appears normal. No effusion. No pneumothorax. Osseous structures demonstrate no acute abnormal ity. IMPRESSION: 1. No radiographically apparent acute cardiopulm onary process. 2. Stable right lower basilar 2 cm nodule. SL: [id number] Brain wo contrast CT Patient Name: ELIDIA ERNANDEZ 07/27/2016 [facility] : 1945; Age: 71 years y/o Male MR: [id number] Study: Brain wo contrast CT 07/27/2016 9:[address] Ordering Physician: Jun Siddiqui DO Clinical Indication: Bilateral leg weakness; Comparison: 02/17/2015 TECHNIQUE: CT images were ob tained from the foramen magnum to the vertex without the use of intravenous contrast on a multidetector CT. Coronal and sagittal reconstructions were obtained. CT radiation dose DLP: 1103.89 mGy FINDINGS: BRAIN PARENCHYMA: There are normal dikcens-white corticomedullary interfaces, sulci and gyri. There are no focal mass lesions or fluid collections on this noncontrast head CT. There is no mass effect, midl ine shift or edema. There ar e no intra-axial or extra-axial fluid collections, intraventricular or intraparenchymal hemorrhage. The pineal, sellar, brainstem, cerebellum and skull base regions appear unremarkable. The white matter, basal gang rosmery, and posterior cranial fossa including the brainstem demonstrate probable mild chronic small vessel changes without change since 02/17/2015. VENTRICLES: CSF spaces are a trophic with wide subarachnoid spaces over the cerebral convexities also known as atrophy and ex vacuo. The lateral ventricles, third and fourth ventricles appear unremarkable. The basilar cisterns are normal. ORBITS, MASTOIDS AND PARANAS AL SINUSES: The visualized orbits are unremarkable. The paranasal sinuses are unremarkable. Incidental left middle turbinate ale bullosa deviating the nasal septum to the right. The mastoid air cells are clear. SKULL: There are no osseous abnormalities. Intracranial atherosclerotic vascular calcification. IMPRESSION: Unremarkable stable noncontr ast head CT with no trauma, mass, hemorrhage or subacute stroke. SL: WR3-M Ext Lower Arterial NAME: ELIDIA ERNANDEZ 09/15/2015 [facility] Outpatient Doppler bilat US : 1945 SEX: M 89 Imaging [facility] Ordering Physician: Farhad Rodriguez lower-romain art Dopp w/o press : Sep 01:08:00 PM. CLINICAL INDICATION: Bilate ral leg blisters for 2 months. 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 Comparison Examination: None. FINDINGS: Bilateral lower ex tremity arterial Doppler evaluation without pressures was performed with dickens scale, color scale and Doppler waveforms evaluation. There are normal triphasic w aveforms and peak systolic velocities of the visualized right external iliac artery. Elevated peak systolic velocities of the right common femoral artery are noted of 186 cm/ sec. This may represent an a lolly of focal stenosis. Elevated peak systolic velocities and spectral broadening is seen in the right superficial femoral artery with peak velocity of 214 cm/sec. This is sug gestive of an area of modera te stenosis in this region. Biphasic right popliteal artery waveforms are seen with mild to moderately decreased peak systolic velocities of 52 cm/sec. Biphasic right posteri or tibial artery waveforms a re seen with mild to moderately decreased peak systolic velocities of 52 cm/sec. Biphasic right anterior tibial artery waveforms are seen with normal peak systolic velocities of 82.3 cm/sec. Biphasic ri ght dorsalis pedis artery waveforms are seen with spectral broadening with normal peak systolic velocities of 72 cm/sec. There are normal triphasic w aveforms and peak systolic velocities of the visualized left external iliac artery. Elevated peak systolic velocities of the left common femoral artery are noted of 182 cm/se c. This may represent an are a of focal stenosis. Biphasic left superficial femoral artery waveforms are seen with peak velocity of 104 cm/sec. Biphasic left popliteal artery waveforms are seen with mild to moderately decreased pea k systolic velocities of 59 cm/sec. Biphasic left posterior tibial artery waveforms are seen with severely decreased peak systolic velocities of 23 cm/sec. Biphasic left ante rior tibial artery waveforms are seen with spectral broadening with peak systolic velocities of 77.9 cm/sec. Biphasic left dorsalis pedis artery waveforms are seen with spectral broadening with peak systolic velocities of 62 cm/sec. Assessment is otherwise limi stuart. Recommend conventional angiography, CT angiography or magnetic resonance angiography for evaluation. IMPRESSION: 1. Bilateral lower extremity arterial occlusive disease, as noted above. SL: 24 Foot series DX Name: ELIDIA ERNANDEZ 09/15/2015 [facility] Ou tpatient Imaging [facility] : 1945 SEX: M Ordering Physician: Farhad Rodriguez Foot series : Sep 15, 2015 12:18:00 PM. 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 There is no acute fracture o r dislocation. There are suspected subtle lucencies about [...] for complete assessment. IMPRESSION: Suspected subtle lucencies a bout the first tarsometatarsal joint. Question patchy osteopenia and/or osteomyelitis/ septic arthritis. Please correlate with the site of soft tissue ulceration. Further ass essment with an MRI to be considered as indicate d. SL: 57 Chest 1view DX NAME: ELIDIA ERNANDEZ 02/17/2015 [facility] : 1945 SEX: M 85 Ordering Physician: Angel Gold Chest 1view : Feb 17, 2015 07:44:00 PM. CLINICAL INDICATION: Centr al Line Placement / Chest 1 view for central line placement COMPARISON: Chest x-ray dated 02/17/2015. FINDINGS: Single frontal view of the chest is submitted fo r interpretation. There is a left-sided subcla vian-approach central venous catheter with the tip located in the region of the SVC, pointing laterally to the right. There is unchanged appearanc e of a 2.0 x 1.6 cm nodular opacity in the right lung base. No new confluent interstitial opacities are seen and there are no effusions. There is no visible pneumothorax. Cardiomediastinal contours are stable. Bony structures appear unremarkable. IMPRESSION: 1. Interval placement of a left subclavian appro ach central venous catheter. 2. Stable appearance of a 2 cm nodular opacity i n the right lung base. SL: 24 Chest 1view DX Name: ELIDIA ERNANDEZ 02/17/2015 [facility] : 1945 SEX: M Ordering Physician: Jun Siddiqui Chest 1view : Feb 17, 2015 10:44:00 AM. CLINICAL INDICATION: Syncope Comparison Examination: June 08, 2014 FINDINGS: PA and lateral chest radiographs were performed. HEART: The cardiomediastinal contours are cherry l. LUNGS: There are no clinically significant osseo us abnormalities noted. IMPRESSION: 1.7 cm nodule in the right l ower lung, further evaluation with a CT scan without contrast may be obtained. SL: [address] NAME: ELIDIA ERNANDEZ 02/17/2015 [facility] : 1945 SEX: M 85 Ordering Physician: Jun Siddiqui Brain wo contrast CT : Feb 17, 2015 10:34:00 AM. CLINICAL INDICATION: Seizures / See Clinic In dication Comparison Examination: 07/05/2010. TECHNIQUE: Axial CT images w ere obtained from the foramen magnum to the vertex without administration of intravenous contrast. Coronal and sagittal reconstructions were obtained. Total DLP = 1144.65 mGy/cm FINDINGS: There is generalized brain p arenchymal atrophy related to the patient's age. Scattered foci of decreased attenuation in the subcortical and periventricular white matter is nonspecific but likely secondary to chronic microvascular ischemic disease. There is no mass effect, mid line shift or edema. There are no intra-axial fluid collections or evidence for acute intraventricular or intraparenchymal hemorrhage. Stable asymmetric prominence of the bif rontal and high parietal ext ra-axial spaces suggesting preferential volume loss, less likely chronic subdural hygromas. No hydrocephalus. There is no CT evidence of s troke. If there is continued concern, MRI should be performed for further assessment. There are no skull fractures noted. Partially opacified right mastoid air cells. No acute imaging abnormality of the orbits or paranasal sinuses. IMPRESSION: Partially opacified right ma stoid air cells. Correlate clinically for mastoiditis. Otherwise stable CT appearance of the brain as a chino. SL: 24 Spine cervical wo Name: ELIDIA ERNANDEZ 02/17/[address] : 1945 Ordering Physician: Jun Siddiqui Spine cervical wo contrast CT : Feb 17, 2015 10: 34:00 AM. CLINICAL INDICATION: Weakness REASON FOR EXAM: See Clinic Indication, fell on floor, seizure Comparison Examination: None. TECHNIQUE: Multi-detector CT imaging of the cervical spine was performed. Coronal and sagittal reconstructions were obtained. Total DLP = 693 mGy/cm FINDINGS: The cervical verte bral bodies demonstrate no evidence of acute fracture or acute mal-alignment. There mild to moderate degenerative disc changes present at C3-C4 through C6-C7. There are duncan re right and mild/moderate l eft facet degenerative changes at C2-C3 and C3-C4. The prevertebral soft tissues are within normal limits. Moderate atherosclerotic calcifications are noted to the bilateral carotid bulb regions. Both carotid bulbs or in a retropharyngeal location. The visualized lung apices are clear. MRI of the cervical spine may be performed if th ere is further concern. IMPRESSION: 1. No CT evidence of acute traumatic injury to t cervical spine. SL: 24 Consultation Notes No Data Provided for This Section Discharge Summaries No Data Provided for This Section History and Physicals No Data Provided for This Section Vital Signs Vital Sign Value Date Comments Source Respitory Rate 18 06/10/2017 [facility] Systolic (mm Hg) 127 06/10/2017 [facility] Diastolic (mm Hg) 65 06/10/[address] Temperature Oral (F) 98.2 F 06/10/2017 [facility] Heart Rate 64 06/10/2017 [facility] Systolic (mm Hg) 122 06/10/2017 [facility] Diastolic (mm Hg) 70 06/10/[address] Respitory Rate 18 06/10/2017 [facility] Heart Rate 51 06/10/2017 [facility] Temperature Oral (F) 98.3 F 06/10/2017 [facility] Heart Rate 64 06/10/2017 [facility] Temperature Oral (F) 98.2 F 06/10/2017 [facility] Respitory Rate 18 06/10/2017 [facility] Systolic (mm Hg) 138 06/10/2017 [facility] Diastolic (mm Hg) 72 06/10/[address] BMI Calculated 34.52 2017 [facility] Weight 118.682 2017 [facility] Height 185.42 cm 2017 [facility] BMI Calculated 34.51 2017 [facility] Weight 118.636 2017 [facility] Height 185.42 cm 2017 [facility] BMI Calculated 31.86 2017 [facility] Height 185.42 cm 2017 [facility] Weight 109.545 2017 [facility] Heart Rate 60 07/30/2016 [facility] Respitory Rate 18 07/30/2016 [facility] Systolic (mm Hg) 149 07/30/2016 [facility] Diastolic (mm Hg) 75 07/30/[address] Temperature Oral (F) 97.5 F 07/30/2016 [facility] Systolic (mm Hg) 154 07/30/2016 [facility] Diastolic (mm Hg) 73 07/30/[address] Heart Rate 60 07/30/2016 [facility] Respitory Rate 18 07/30/2016 [facility] Temperature Oral (F) 97.5 F 07/30/2016 [facility] Respitory Rate 16 07/30/2016 [facility] Temperature Oral (F) 98.1 F 07/30/2016 [facility] Heart Rate 50 07/30/2016 [facility] Systolic (mm Hg) 111 07/30/2016 [facility] Diastolic (mm Hg) 66 07/30/[address] Weight 109.545 07/28/2016 [facility] Weight 107.898 07/28/2016 [facility] Height 182.88 cm 07/28/2016 [facility] BMI Calculated 32.26 07/28/2016 [facility] Weight 97.273 07/28/2016 [facility] BMI Calculated 29.91 07/28/2016 [facility] Height 180.34 cm 07/28/2016 [facility] Respitory Rate 12 05/30/2016 [facility] Systolic (mm Hg) 157 05/30/2016 [facility] Diastolic (mm Hg) 68 05/30/[address] Temperature Oral (F) 98.6 F 05/30/2016 [facility] Respitory Rate 14 05/30/2016 [facility] Systolic (mm Hg) 161 05/30/2016 [facility] Diastolic (mm Hg) 67 05/30/[address] Respitory Rate 12 05/30/2016 [facility] Systolic (mm Hg) 152 05/30/2016 [facility] Diastolic (mm Hg) 66 05/30/[address] Heart Rate 52 05/30/2016 [facility] BMI Calculated 29.22 05/30/2016 [facility] Weight 97.727 05/30/2016 [facility] Heart Rate 56 05/30/2016 [facility] Height 182.88 cm 05/30/2016 [facility] Temperature Oral (F) 98.7 F 05/30/2016 [facility] Systolic (mm Hg) 156 02/19/2015 [facility] Diastolic (mm Hg) 68 02/19/[address] Respitory Rate 16 02/19/2015 [facility] Systolic (mm Hg) 157 02/19/2015 [facility] Diastolic (mm Hg) 68 02/19/[address] Respitory Rate 17 02/19/2015 [facility] Respitory Rate 18 02/19/2015 [facility] Systolic (mm Hg) 140 02/19/2015 [facility] Diastolic (mm Hg) 67 02/19/[address] Temperature Oral (F) 97.7 F 02/18/2015 [facility] Temperature Oral (F) 98.6 F 02/18/2015 [facility] Weight 119 02/18/2015 [facility] Temperature Oral (F) 98.5 F 02/18/2015 [facility] Heart Rate 68 02/17/2015 [facility] Height 185.42 cm 02/17/2015 [facility] Weight 120 02/17/2015 [facility] BMI Calculated 34.9 02/17/2015 [facility] Heart Rate 77 02/17/2015 [facility] Heart Rate 70 02/17/2015 [facility] Weight 127.273 02/17/2015 [facility] BMI Calculated 37.02 02/17/2015 [facility] Height 185.42 cm 02/17/2015 [facility] Diastolic (mm Hg) 78 06/11/[address] Systolic (mm Hg) 161 06/11/2014 [facility] Respitory Rate 18 06/11/2014 [facility] Heart Rate 83 06/11/2014 [facility] Temperature Oral (F) 97.4 F 06/11/2014 [facility] Respitory Rate 12 06/11/2014 [facility] Heart Rate 70 06/11/2014 [facility] Temperature Oral (F) 98.5 F 06/11/2014 [facility] Systolic (mm Hg) 153 06/11/2014 [facility] Diastolic (mm Hg) 81 06/11/[address] Respitory Rate 20 06/11/2014 [facility] Systolic (mm Hg) 114 06/11/2014 [facility] Diastolic (mm Hg) 61 06/11/[address] Temperature Oral (F) 98.4 F 06/11/2014 [facility] Heart Rate 67 06/11/2014 [facility] BMI Calculated 32.3 06/09/2014 [facility] Weight 111.051 06/09/2014 [facility] Height 185.42 cm 06/09/2014 [facility] Height 185.42 cm 06/09/2014 [facility] Weight 110.966 06/09/2014 [facility] BMI Calculated 32.28 06/09/2014 [facility] Encounters Location Location Encounter Encounter Reason Attending ADM DC Stat us Source Details Type Number For Provider Date Date Visit [facility] Inpatient [id number] Negro 06/08 06/11 Gómez Chacko /2013 [facility] Inpatient [id number] Dc Maradiaga 02/17 02/19 Gómez /2014 [facility] Wound Care [id number] Farhad 09/11 10/11 Gómez Rodriguez III /2015 [facility] Outpt Diag [id number] Farhad 09/15 09/16 [facility] Outpatient Services Jennifer KENNEDY /2015 [facility] W[facility] Care [id number] Farhad 10/24 11/22 Gómez Rodriguez III /2015 [facility] [id number] Farhad 12/11 01/10 Gómez Rodriguez III /2015 [facility] [id number] Farhad 02/05 03/07 Gómez Rodriguez III /2015 [facility] [id number] Farhad 05/07 06/06 Gómez Rodriguez III /2015 [facility] [id number] Ant 05/30 05/30 Gómez Tracy /2015 [facility] Inpatient [id number] Mohammamilana 07/28 07/30 Gómez Rapp /2015 [facility] Wound Care [id number] Farhad 10/02 11/01 Gómez Rodriguez III /2016 [facility] [id number] Farhad 12/02 01/01 Gómez Rodriguez III /2016 [facility] Inpatient [id number] Gianacrlo 05/23 06/10 Gómez Murphy /2016 [facility] Procedures Procedure Code Date Perfomer Comments Source Aortic aneurysm [id number] [facility] repair Assessment and Plan Assessment and Plan Date Source Extracted from:Title: IM Note 06/10/2017 [facility] Author: Giancarlo Murphy MD Date: 06/10/17 Impression and Plan course in the hospital: ABD PAIN secondary to ACUTE CHOLECYSTITI S...evaluated by surgery...poor surgical candidate...iv antibiotics...was considered for cholecystostomy but improved. pain resolved. tolerated diet. id recommend to continue antibiotics. 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 COPD advise need PFT to better understand degree of copd in outpt. ACUTE ON CHRONIC RESPIRATORY FAILURE...resolved , on low zach w o2 on dc. SCHIZOPHRENIA, ANEMIA, SEIZURE disorder,CKD3 stable, FAVIO fro m SHANTE resolved. still weak despite medically improved. r ecommend snf/rehab before going home. accepted by [facility]. Extracted from:Title: Infectious disease Progress Note * Author: Chalino Ross DO Date: 06/10/17 Impression and Plan Impression and Plan The patient was seen and examined by me with the resident/APARTMENT LEASING CONSULTANT/PA and I agree with the History/Exam documented. 1. Cholecystitis on iv doing well stop coy error previoulsy should 15 not 25 us guideded iv 2. Leukocytosis resolved 3 Resp failure chronic Recommend cont zosyn/diflucan stop date previous error Extracted from:Title: Progress Note Complex * 07/30/2016 [facility] Author: Elton Ugalde MD Date: 07/29/16 Impression and Plan B/L LE WEAKNESS HX ANXIETY HX DEPRESION COPD CONTINUE PT NEUROLOGY EVAL SNF EVAL CONTINUE RX Extracted from:Title: Progress Note *neuro 02/19/2015 [facility] Author: Miriam Mann MD Date: 02/18/15 Impression and Plan New onset seizures: likely due to severe hyponatremia. Agree with current management. EEG and MRI brain to look for other etiology are pending Severe hyponatremia: resolving Metabolic encephalopathy: resolved - Will follow. Extracted from:Title: Pulm f/u 06/11/2014 [facility] Author: Tamika Beltran MD Date: 06/11/14 Impression and Plan 1. Acute on chronic hypoxic hypercarbic respiratory failure 2. Chronic obstructive pulmonary diseas e exacerbation secondary to acute bronchitis. 3. Hypertension. 4. Bipolar disease. 5. Obesity. Much improved OK to DC home from pulm standpoit Medrol + PO Abx Thx! Plan of Care No Data Provided for This Section Social History Social History Date Source Social History TypeResponse 05/30/2016 [facility] Substance Abuse Use: None. Alcohol Past Smoking Status Current some day smoker; Type: Chewing t obacco; Number of years: 54; Stopped at age: 62; Lives with someone who smokes; Cigarette Smoking Last 365 Days Yes; Reg Smoking Cessation Counseling Yes Social History TypeResponse 02/17/2015 [facility] Outpati ent Imaging Substance Abuse [place] Use: None. Alcohol [...]
--- OUTSIDE RECORDS SUMMARY | 2020-03-24 13:48 | XMS REPORT | Continuity of Care Document ---
:1945 Author Organization [facility] t Address [address] [place] [address] Care Team Providers Name Role Phone Cherie Murphy Attending Clinician Chadwick Rodriguez III Attending Clinician Lakhwinder Rapp Attending Clinician Jam Tracy Jr Attending Clinician Lai Gold Attending Clinician Mariza Attending Clinician Cherie Murphy Admitting Clinician Lakhwinder Rapp Admitting Clinician Jean Maradiaga Admitting Clinician Mariza Admitting Clinician Problems Condition Condition Condition Status Onset Resolution Last Treating Co mments Source Name Details Category Date Date Treatment Clinician Date ABD PAIN Diagnosis Active 2017-11-11 emoria 05-22 12:12:00 l ABD PAIN 08:00: Rudy n 00 Active 05/22/2017 [facility] WOUND Diagnosis Active 2017-04-03 Mem oria 02-27 16:00:00 l WOUND 08:00: [place] 00 Active 02/27/2017 [facility] LEG Diagnosis Active 2015-092016-07-29 Mem oria WEAKNESS 09-26 15:57:00 l BILATERAL LEG 00:00: [place] WEAKNESS 00 BILATERAL Active 07/27/2016 [facility] WEAKNESS Diagnosis Active 2016-05-30 emoria 05-30 22:11:00 l WEAKNESS 07:00: Rudy n 00 Active 05/30/2016 [facility] AMS Diagnosis Active 2015-02-20 Mem oria 02-17 16:39:00 l AMS 00:00: [place] 00 Active 02/17/2015 [facility] SOB Diagnosis Active 2013-092015-05-19 Mem oria 0-08 09:41:00 l SOB 00:00: [place] 00 Active 06/08/2014 [facility] Type 2 Type [address] [facility] diabetes diabetes [facility] - mellitus mellitus Memori a without without l complicati complicati Ou tpati on, on, ent unspecifie unspecifie Cl inics d whether d whether predatory animal exterminator predatory animal exterminator insulin insulin use use Congestive Congestive Problem Active [facility] heart heart [facility] - failure, failure, Memori a unspecifie unspecifie l d HF d HF Outpati chronicity chronicity en t , , Clinics unspecifie unspecifie d heart d heart failure failure type type Essential Essential Problem Active [facility] (primary) (primary) [facility] - hypertensi hypertensi Me moria on on l Outpati ent Clinics Depression Depression Problem Active [facility] with with [facility] - anxiety anxiety [facility] Out[facility] ent Clinics Acquired Acquired Problem [facility] hypothyroi hypothyroi Jade kes - dism dism [facility]oria l Outpati ent Clinics Bipolar 1 Bipolar [address] [facility] disorder, disorder, [facility] - depressed, depressed, Me moria full full l remission remission Outp ati ent Clinics Hyperlipid Hyperlipid Problem Active [facility] emia, emia, [facility] - unspecifie unspecifie Me moria d d l hyperlipid hyperlipid Ou tpati emia type emia type ent Clinics Seasonal Seasonal Problem [facility] allergies [facility] - [facility] Out[facility] Clinics Chronic Chronic Problem Active [facility] obstructiv obstructiv Jade kes - e e Memoria pulmonary pulmonary l disease, disease, Outpat i unspecifie unspecifie en t d COPD d COPD Clinics type type Type 2 Type [address] [facility] diabetes diabetes [facility] - mellitus mellitus Memori a with foot with foot l ulcer ulcer Outpati ent Clinics Non-pressu Non-pressu Problem Active [facility] re chronic re chronic Jade kes - ulcer of ulcer of Memori a other part other part l of right of right Outpat i foot with foot with ent other other Clinics specified specified severity severity Recurrent Recurrent Problem Active [facility] - while while Memoria walking walking l Outpati ent Clinics Chronic Chronic Problem Active [facility] kidney kidney [facility] - disease, disease, Memori a unspecifie unspecifie l d CKD d CKD Outpati stage stage ent Clinics Hypocalcem Hypocalcem Problem Active [facility] ia ia [facility] - [facility] l Outpati ent Clin[facility] Generalize Generalize Problem Active [facility] muscle d muscle [facility] - weakness weakness Memori a l Outpati ent Clinics Generalize Generalize Problem Active [facility] d weakness d weakness Jade kes - Memoria l Outpati ent Clinics 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 Acute Problem Resolve 2017-06-13 David cedrick congestive d 00:54:32 l heart Acute [place] failure congestive (disorder) heart failure (disorder) Resolved Problem 06/13/2017 [facility] Chronic Problem Resolve 2017-06-13 Mem oria obstructiv d 00:54:32 l e lung Chronic [place] disease obstructiv (disorder) e lung disease (disorder) Resolved Problem 06/13/2017 [facility] Hypertensi Problem Resolve 2017-06-13 Memoria ve d 00:54:32 l disorder, [place] systemic Hypertensi arterial ve (disorder) disorder, systemic arterial (disorder) Resolved Problem 06/13/2017 [facility] Schizophre Problem Resolve 2017-06-13 Memoria boubacar d 00:54:32 l (disorder) Rudy n Schizophre boubacar (disorder) Resolved Problem 06/13/2017 [facility] Aortic Problem Resolve 2017-06-13 David cedrick aneurysm d 00:54:32 l (disorder) Aortic Herm deepa aneurysm (disorder) Resolved Problem 06/13/2017 [facility] Peptic Problem Resolve 2017-06-13 David cedrick ulcer with d 00:54:32 l hemorrhage Peptic Herm deepa (disorder) ulcer with hemorrhage (disorder) Resolved Problem 06/13/2017 [facility] Anxiety Problem Active 2017-06-13 David cedrick (finding) 00:54:32 l Anxiety [place] (finding) Active Problem 06/13/2017 [facility] Arthritis Problem Active 2017-06-13 Me moria (disorder) 00:54:32 l [place] Arthritis (disorder) Active Problem 06/13/2017 [facility] Depressive Problem Active 2017-06-13 M emoria disorder 00:54:32 l (disorder) Rudy n Depressive disorder (disorder) Active Problem 06/13/2017 [facility] Diabetes Problem Active 2017-06-13 Mem oria mellitus 00:54:32 l (disorder) Diabetes He rmann mellitus (disorder) Active Problem 06/13/2017 [facility] Gastroesop Problem Active 2017-06-13 M emoria hageal 00:54:32 l reflux [place] disease Gastroesop (disorder) hageal reflux disease (disorder) Active Problem 06/13/2017 [facility] Glaucoma Problem Active 2017-06-13 Mem oria (disorder) 00:54:32 l Glaucoma Rudy n (disorder) Active Problem 06/13/2017 [facility] Narcosis Problem Active 2017-06-13 Mem oria (finding) 00:54:32 l Narcosis Rudy n (finding) Active Problem 06/13/2017 [facility] Hyperlipid Problem Active 2017-06-13 M emoria emia 00:54:32 l (disorder) Rudy n Hyperlipid emia (disorder) Active Problem 06/13/2017 [facility] CHR AIRWAY Diagnosis Active 2015-05-19 Memoria OBSTRUCT 09:41:00 l NEC CHR [place] AIRWAY OBSTRUCT NEC Active [facility] ALTERED Diagnosis Active 2015-02-20 Me moria MENTAL 16:39:00 l STATUS ALTERED [place] MENTAL STATUS Active [facility] UNSPECIFIE Diagnosis Active 2017-04-03 Memoria D OPEN 16:00:00 l WOUND, [place] RIGHT UNSPECIFIE FOOT, SUBS D OPEN WOUND, RIGHT FOOT, SUBS Active [facility] NON-PRS Diagnosis Active 2015-09-18 Me moria CHRONIC 16:01:00 l ULCER OTH NON-PRS Herm deepa PRT RIGHT CHRONIC FOOT ULCER OTH PRT RIGHT FOOT Active [facility] TYPE 2 Diagnosis Active 2015-11-22 Mem oria DIABETES W 08:18:00 l DIABETIC TYPE 2 Rudy n PERIPHERAL DIABETES W AN DIABETIC PERIPHERAL AN Active [facility] TINEA Diagnosis Active 2016-05-07 Mem oria UNGUIUM 16:57:00 l TINEA [place] UNGUIUM Active [facility] TYPE 2 Diagnosis Active 2016-05-07 Mem oria DIABETES 16:57:00 l MELLITUS TYPE 2 Rudy n WITH DIABETES DIABETIC P MELLITUS WITH DIABETIC P Active [facility] NON-PRS Diagnosis Active 2016-01-09 Me moria CHRONIC 15:34:00 l ULCER OTH NON-PRS Herm deepa PRT R FOOT CHRONIC STREET ULCER OTH PRT R FOOT STREET Active [facility] CORNS AND Diagnosis Active 2016-05-07 Memoria CALLOSITIE 16:57:00 l S CORNS [place] AND CALLOSITIE S Active [facility] MUSCLE Diagnosis Active 2016-07-29 Mem oria WEAKNESS 15:57:00 l (GENERALIZ MUSCLE Herm deepa ED) WEAKNESS (GENERALIZ ED) Active [facility] CHOLECYSTI Diagnosis Active 2017-11-11 Memoria TIS, 12:12:00 l UNSPECIFIE Rudy n D CHOLECYSTI TIS, UNSPECIFIE D Active [facility] Discharge Problem 2016-06-02 2016-06-02 Memoria Diagnosis: 05-30 03:26:48 03:26:48 l Fatigue 05:00: [place] Discharge 00 Diagnosis: Fatigue 05/30/2016 06/02/2016 [facility] Discharge Problem 2016-06-02 2016-06-02 Memoria Diagnosis: 05-30 03:26:48 03:26:48 l Acute 05:00: [place] renal Discharge 00 insufficie Diagnosis: ncy Acute renal insufficie ncy 05/30/2016 06/02/2016 [facility] Discharge Problem 2016-06-02 2016-06-02 Memoria Diagnosis: 05-30 03:26:48 03:26:48 l Dehydratio 05:00: Rudy n n Discharge 00 Diagnosis: Dehydratio n 05/30/2016 06/02/2016 [facility] Allergies, Adverse Reactions, Alerts Allergy Allergy Status Severity Reaction(s) Onset Inactive Treating Comm ents Source Name Type Date Date Clinician codeine Adverse Active Info Not [facility] Reaction Available [facility] codeine codeine Active Barney Magaña caffeine caffeine Active Kelly Magaña Social History Social Habit Start Date Stop Date Quantity Comments Source Social History 2015-02-17 2015-02-17 Mary colbert 18:36:27 18:36:27 Medications Ordered Filled Start Stop Current Ordering Indication Dosage Frequency Signature Comments Components Source Medication Medication Date Date Medication? Clinician (SIG) Name Name Carvedilol Carvedilol Yes Jenna [address] [facility] 9-26 [facility] Glucometer Glucometer Yes Jenna one strip [facility] test strips test strips 9-16 Millender using the [facility] - 00:00: [employer] Memoria 00 Metric l glucometer [facility] Albuterol Albuterol 2017-09 Yes Jenna [address] [facility] Sulfate Sulfate 2-18 Millender needed Jade kes - 00:00: [facility]oria 00 l [facility] fluconazole 2016-09 Yes 200 mg = 2 Memoria 100 mg oral 0-10 tab, PO, l tablet 21:09: [id number], 0 Padmini nn 00 Refill(s) Saline 2016-09 No 10 mL, Memoria Flush 0.9% 0-10 Route: l 21:00: IVP, Drug [place] 00 Form: INJ, Dosing Weight 118.682, kg, Q8H, Start date: 06/10/17 16:00:00 CDT, Duration: 30 day, Stop date: 07/10/17 8:00:00 CANAL 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 He rmann Injectable 00 (Same as: Solution Xylocaine MPF) Saline 2016-09 No Notes: Memoria Flush 0.9% 0-10 (Same as: l 20:41: BD [place] 00 Posiflush) Lidocaine 2016-09 No 5 mL, Memoria Hydrochlori 0-10 Route: l de 10 MG/ML 19:00: INTRADERM, [place] Injectable 00 Dosing Solution Weight 118.682, kg, ONCALL, Start date: 06/10/17 14:00:00 CDT, Duration: 30 day, Stop date: 07/10/17 12:59:00 CANAL EQUIPMENT MAINTENANCE SUPERVISOR BD Normal 2016-09 No Notes: Memori a Saline 0-10 (Same as: l Flush 19:00: BD [place] 00 Posiflush) Saline 2016-09 No Notes: Memoria Flush 0.9% 0-10 (Same as: l 18:26: BD [place] 00 Posiflush) Lidocaine 2016-09 No Notes: Memori a Hydrochlori 0-10 Preservati l de 10 MG/ML 18:00: ve free. He rmann Injectable 00 (Same as: Solution Xylocaine MPF) Saline 2016-09 No Notes: Memoria Flush 0.9% 0-10 (Same as: l 17:59: BD [place] 00 Posiflush) Protonix 2016-09 No Notes: Memoria 0-09 Tablet l 21:30: should not [place] 00 be chewed or crushed. (Same as: Protonix) Miralax 2016-09 No Notes: Memoria 0-09 Dissolve l 17:11: in 8 oz of [place] 00 water or juice. (Same as: Miralax) Maalox 2016-09 No Notes: Memoria Advanced 0-07 (aluminum l Regular 02:12: hydroxide- Herm deepa Strength 00 magnesium SUSP hyd-simeth icone 200-200-20 mg/5ml 30 ml ud [place]) Betaxolol 2016-09 No 2 drp, Memori a 2.5 MG/ML 0-05 Route: l Ophthalmic 22:00: BOTH EYES, H ermann Suspension 00 BID, Drug [Betoptic form: S] SUSP, Start date: 06/05/17 17:00:00 CDT, Duration: 30 day, Stop date: 07/05/17 9:00:00 CDT Zosyn 2016-09 No Notes: Memoria 0-03 (Same as: l 16:00: Zosyn) [place] 00 Dosing based on Piperacill in component MEDICATION WASTE Product Size: 3375 mg Product Wasted: ___ mg Hydralazine 2016-09 No Notes: David cedrick 0-03 (Same as: l 07:17: Apresoline [place] 00 ) Push over 5 minutes Diflucan 2016-09 No Notes: Memoria 0-01 (Same as: l 20:00: Diflucan) [place] 00 Lasix 2016-09 No Notes: Memoria 0-01 (Same as: l 15:04: Lasix) [place] 00 Diflucan No Notes: Memoria 9-30 (Same as: l 22:00: Diflucan) [place] 00 Do not refrigerat e Flagyl No Notes: Memoria 9-30 (Same as: l 21:00: Flagyl) Avoid alcohol. Lovenox No 30 mg, Memoria 05-30 Route: l 18:00: SUB-Q, Drug form: INJ, [id number], Dosing Weight 118.682, kg, For CrCl <30mL/min, Start date: 05/30/17 13:00:00 CDT, Duration: 30 day, Stop date: 06/28/17 13:00:00 CDT Buspirone No Notes: Memori a 05-29 (Same As: l 02:00: BuSpar) Acetaminoph No Notes: Do M emoria en 05-28 not exceed l 05:32: 4 gm/day. (Same as: Tylenol) Dulcolax No Notes: Memoria Laxative 05-26 (Same As: l 20:24: Dulcolax, Bisco-Lax) timolol No Notes: Memoria ophthalmic 05-26 (Same As: l 19:00: Timoptic, Betimol) magnesium No Notes: Memori a citrate 05-25 (Same as: l 58.2 MG/ML 18:32: Citrate of H ermann Oral Magnesia) Solution Concentrat ion: 1.745 gm / 30 mL Albuterol No Notes: Memori a 0.833 MG/ML 05-25 (Same as: l / 16:00: Duoneb) Ipratropium 00 [place] 0.167 MG/ML Inhalant Solution Budesonide No Notes: Memor ia 0.25 MG/ML 05-25 (Same As: l Inhalant 12:57: Pulmicort) Her andujar Solution 00 [Pulmicort] Budesonide No Notes: Memor ia 0.25 MG/ML 05-25 (Same As: l Inhalant 01:00: Pulmicort) Her andujar Solution 00 [Pulmicort] Dextrose No 50 mL, Memoria 50% in 05-25 Route: l Water IV 00:24: IVP, Start Her date: 05/24/17 19:24:00 CDT, Stop date: 05/24/17 19:24:00 CDT Dextrose No 25 gm, Memoria 05-24 Route: l 23:34: IVPB, [place] 00 ONCE, Dosing Weight 118.682, kg, Start date: 05/24/17 18:34:00 CDT, Stop date: 05/24/17 18:34:00 CDT Insulin No 15 unit, Memori a regular 05-24 Route: IV, l 23:23: ONCE, Dosing Weight 118.682, kg, Priority: NOW, Start date: 05/24/17 18:23:00 CDT, Stop date: 05/24/17 18:23:00 CDT sodium No 1,000 mL, Memori a chloride 05-24 Rate: 75 l 0.9% 1000 17:41: ml/hr, Rudy n ml INJ 00 Infuse 1,000 mL over: 13.3 hr, Route: IV, Dosing Weight 118.682 kg, Total Volume: 1,000, Start date: 05/24/17 12:41:00 CDT, Stop date: 06/23/17 12:40:00 CDT influenza No Notes: Memori a virus 05-24 (Same as: l vaccine, 14:00: Fluzone Rudy n inactivated 00 Quadrivale nt, Fluarix Quadrivale nt) For 3 years of age and older (0.5 mL IM) Shake well before use ia No Notes: Memoria 05-24 (Same as: l 14:00: Januvia) omega-3 No Notes: Memoria polyunsatur 05-24 (Same as: l ated fatty 14:00: MaxEPA, Herm deepa acids 00 Saxis 3 fish oil ) Non-Formul genaro Drug Vitamin D3 No Notes: Memor ia 05-24 Same as : l 14:00: Vitamin D3 venlafaxine No Notes: David cedrick 05-24 (Same As: l 14:00: Effexor) Albuterol No Notes: Memori a 0.833 MG/ML 05-24 (Same as: l / 13:46: Duoneb) Ipratropium 00 [place] 0.167 MG/ML Inhalant Solution [DuoNeb] tiotropium No Notes: Memor ia 0.018 05-24 (Same As: l MG/ACTUAT 13:00: Spiriva). Her andujar Inhalant 00 Powder [Spiriva] Thyroxine No Notes: Memori a - Take 1 l 11:30: hour [place] 00 before or 2 hours after meal; Enteral feeds may interefere with the absorption of this medication .(Same as:Levothr oid, Synthroid) Trazodone No Notes: Memori a 05-24 (Same As: l 02:00: Desyrel) [place] Risperidone No Notes: David cedrick 05-24 (Same as: l 02:00: Risperdal) [place] latanoprost No Notes: David cedrick 0.05 MG/ML 05-24 Keep l Ophthalmic 02:00: refrigerat H ermann Solution 00 ed. (Same as:Xalatan ) Opened bottle may be stored at room temperatur e for 6 weeks Insulin No Notes: Memoria Glargine 05-24 (Same as: l 100 UNT/ML 02:00: Lantus) Do H ermann Injectable 00 not hold Solution insulin [Lantus] without contacting prescriber WASTE: F/P - Black; E - Municipal Trash Bin "single patient use only" Fenofibrate No Notes: David cedrick 05-24 (Same as: l 02:00: Tricor) [place] 00 24 HR No Notes: Memoria Divalproex 05-24 (Same as: l Sodium 500 02:00: Depakote Her andujra MG Extended 00 ER) Once Release daily Tablet dosing; indicated for migraines. Divalproe x sodium extended-r elease tab. Do not chew or crush. "Do Not Crush" Ipratropium No Notes: SEE Memoria 05-24 RT l 00:00: DOCUMENTAT [place] 00 ION (Same as:Atroven t) Zosyn + No Notes: Memoria sodium 05-23 (Same as: l chloride 22:00: Zosyn) [place] 0.9% INJ 00 Dosing 100 mL based on Piperacill in component MEDICATION WASTE Product Size: 3375 mg Product Wasted: ___ mg Brimonidine No Notes: David cedrick tartrate 05-23 (Same As: l 1.5 MG/ML 22:00: Alphagan) Her andujar Ophthalmic 00 Solution Betaxolol No 2 drp, Memori a 2.5 MG/ML 05-23 Route: l Ophthalmic 22:00: BOTH EYES, H ermann Suspension 00 BID, Drug [Betoptic form: S] SUSP, Start date: 05/23/17 17:00:00 CDT, Duration: 30 day, Stop date: 06/22/17 9:00:00 CDT Symbicort No Notes: Memori a 160/4.5 05-23 (Same as: l inhalation 21:00: Symbicort) H ermann aerosol WASTE: with Aerosol - adapter Return to Pharmacy Zosyn No 2.25 gm, Memoria 05-23 Route: IV, l 21:00: Q8H, [place] 00 Dosing Weight 109.545, kg, Start date: 05/23/17 16:00:00 CDT, Duration: 30 day, Stop date: 06/22/17 8:00:00 CDT, ABX Indication : Intra-abdo jelly Infection metoprolol No Notes: Memor ia tartrate 05-23 (Same as: l 19:00: Lopressor) Zosyn No 2.25 gm, Memoria 05-23 Route: l 18:00: IVPB, Drug form: PDR/INJ, [id number], Dosing Weight 118.682, kg, Start date: 05/23/17 13:00:00 CDT, Duration: 10 day, Stop date: 06/02/17 5:00:00 CDT, ABX Indication : Intra-abdo jelly Infection Buspirone No Notes: Memori a 05-23 (Same As: l 18:00: BuSpar) Aspirin No Notes: Do Memor ia 05-23 not crush l 18:00: or chew. (Same As: Ecotrin) Amlodipine No Notes: Memor ia 05-23 (Same as: l 18:00: Norvasc) Amiodarone No Notes: Memor ia 05-23 (Same as: l 18:00: Cordarone) Alprazolam No Notes: Memor ia 05-23 With food l 17:42: or milk (Same as: Xanax) Insulin No 60 Memoria Lispro 05-23 units) l 17:40: WASTE: F/P - Black; E - Municipal Trash Bin Stable for 28 days at room temperatur e. Expires in days from ____Date Dextrose No 12.5 gm, Memor ia 50% Syringe 05-23 25 mL, l 17:40: Route: IVP, Drug Form: INJ, Dosing Weight 118.682, kg, PRN, PRN Blood Glucose Results, Start date: 05/23/17 12:40:00 CDT, Duration: 30 day, Stop date: 06/22/17 12:39:00 CDT Glucagon No 1 mg, Memoria 05-23 Route: IM, l 17:40: Drug form: PDR/INJ, PRN, Dosing Weight 118.682, kg, PRN Blood Glucose Results, Start date: 05/23/17 12:40:00 CDT, Duration: 30 day, Stop date: 06/22/17 12:39:00 CDT Baclofen No Notes: Memoria 05-23 (Same As: l 17:15: Lioresal) Aspirin 81 No 81 mg = 1 Me moria MG Chewable - tab, PO, l Tablet 16:29: Daily, [place] 00 tab, 0 Refill(s) 24 HR Yes 500 mg = 1 Memori a Divalproex 9-22 tab, PO, l Sodium 500 16:29: Bedtime, # H ermann MG Extended 00 30 tab, 0 Release Refill(s) Tablet Zosyn + No Notes: Memoria sodium - (Same as: l chloride 16:00: Zosyn) [place] 0.9% INJ 00 Dosing 100 mL based on Piperacill in component MEDICATION WASTE Product Size: 3375 mg Product Wasted: ___ mg Zosyn + No Notes: Memoria sodium -22 (Same as: l chloride 15:21: Zosyn) [place] 0.9% INJ Dosing 100 mL based on Piperacill in component MEDICATION WASTE Product Size: 3375 mg Product Wasted: ___ mg Morphine No 2 mg, 1 Memori a 9-22 mL, Route: l 14:57: IVP, Drug [place] 00 form: SOLN, Q4H, Dosing Weight 109.545, kg, PRN Pain Score 7-10, Priority: STAT, Start date: 05/23/17 9:57:00 CDT, Stop date: 06/22/17 9:56:00 CDT Zofran No Notes: Memoria - (Same as: l 14:57: Zofran) [place] 00 MEDICATION WASTE Product Size: 4 mg Product Wasted: ___ mg Morphine No 4 mg, Memoria 05-23 Route: l 14:27: IVP, ONCE, [place] Dosing Weight 109.545, kg, Priority: STAT, Start date: 05/23/17 9:27:00 CDT, Stop date: 05/23/17 9:27:00 CDT Omnipaque No 45 Memoria 300 9-22 mL/min, l injectable 11:50: STAT, Rudy n solution 00 Start date: 05/23/17 6:50:00 CDT, Duration: 1 doses or times Morphine No Notes: Memoria - (Same l 11:10: as:MORPhin [place] 00 e Sulfate) Saline No Notes: Memoria Flush 0.9% 05-23 (Same as: l 11:09: BD [place] Posiflush) tiotropium 2015-09 No Notes: Memor ia 0.018 09-28 (Same As: l MG/ACTUAT 15:00: Spiriva). Her andujar Inhalant 00 Powder [Spiriva] One-A-Day 2015-09 No 1 tab, Memori a Men 50 Plus 09-28 Route: PO, l 15:00: Dosing Weight 109.545, kg, Daily, Start date: 07/29/16 9:00:00 CANAL EQUIPMENT MAINTENANCE SUPERVISOR, Duration: 30 day, Stop date: 08/27/16 9:00:00 CANAL EQUIPMENT MAINTENANCE SUPERVISOR Aspirin 2015-09 No 81 mg, Memoria 09-28 Route: PO, l 15:00: Daily, Dosing Weight 109.545, kg, Start date: 07/29/16 9:00:00 CANAL EQUIPMENT MAINTENANCE SUPERVISOR, Duration: 30 day, Stop date: 08/27/16 9:00:00 CANAL EQUIPMENT MAINTENANCE SUPERVISOR Levemir 2015-09 No Notes: Memoria FlexPen 09-28 Same as l 03:00: Levemir Do not hold insulin without contacting prescriber WASTE: F/P - Black; E - Municipal Trash Bin "single patient use only" Trazodone 2015-09 No Notes: Memori a 09-28 (Same As: l 03:00: Desyrel) [place] Risperidone 2015-09 No Notes: David cedrick 09-28 (Same as: l 03:00: Risperdal) [place] 00 latanoprost 2015-09 No Notes: David cedrick 0.05 MG/ML 09-28 Keep l Ophthalmic 03:00: refrigerat H ermann Solution 00 ed. (Same as:Xalatan ) Insulin 2015-09 No 30 unit, Memori a Glargine 09-28 Route: l 100 UNT/ML 03:00: SUB-Q, Padmini nn Injectable 00 Drug form: Solution SOLN, [Lantus] Bedtime, Dosing Weight 109.545, kg, Start date: 07/28/16 21:00:00 CANAL EQUIPMENT MAINTENANCE SUPERVISOR, Duration: 30 day, Stop date: 08/26/16 21:00:00 CANAL EQUIPMENT MAINTENANCE SUPERVISOR Docusate 2015-09 No Notes: Memoria Sodium 100 09-27 (Same as: l MG Oral 23:00: Colace) [place] Capsule (Do Not Crush) Brimonidine 2015-09 No Notes: David cedrick tartrate 09-27 (Same As: l 1.5 MG/ML 23:00: Alphagan) Her andujar Ophthalmic 00 Solution Betaxolol 2015-09 No 2 drp, Memori a 2.5 MG/ML 09-27 Route: l Ophthalmic 23:00: BOTH EYES, H ermann Suspension 00 BID, Drug [Betoptic form: S] SUSP, Start date: 07/28/16 17:00:00 CANAL EQUIPMENT MAINTENANCE SUPERVISOR, Duration: 30 day, Stop date: 08/27/16 9:00:00 CANAL EQUIPMENT MAINTENANCE SUPERVISOR timolol 2015-09 No Notes: Memoria ophthalmic 09-27 (Same As: l 23:00: Timoptic, [place] Betimol) Buspirone 2015-09 No Notes: Memori a 09-27 (Same As: l 21:00: BuSpar) Ipratropium 2015-09 No 500 Memori a -27 microgram, l 19:00: Route: NEB, QID, Dosing Weight 109.545, kg, Start date: 07/28/16 13:00:00 CANAL EQUIPMENT MAINTENANCE SUPERVISOR, Duration: 30 day, Stop date: 08/27/16 9:00:00 CANAL EQUIPMENT MAINTENANCE SUPERVISOR Alprazolam 2015-09 No 0.5 mg, David cedrick 09-27 Route: PO, l 19:00: TID, Dosing Weight 109.545, kg, Start date: 07/28/16 13:00:00 CANAL EQUIPMENT MAINTENANCE SUPERVISOR, Duration: 30 day, Stop date: 08/27/16 9:00:00 CANAL EQUIPMENT MAINTENANCE SUPERVISOR Thyroxine 2015-09 No Notes: Memori a -27 Take 1 l 17:30: hour before or 2 hours after meal; Enteral feeds may interefere with the absorption of this medication .(Same as:Levothr oid, Synthroid) multivitami 2015-09 No Notes: David cedrick n with 09-27 Give with l minerals 17:00: food. (Same As: Stress 600 with Zinc) WASTE: F/P - Black; E - GSOUND Trash Bin omega-3 2015-09 No Notes: Memoria polyunsatur 09-27 (Same as: l ated fatty 17:00: Lovaza, Herm deepa acids formally named [place]) "Do Not Crush" Lisinopril 2015-09 No Notes: Memor ia 09-27 (Same as: l 17:00: Prinivil, [place] 00 Zestril) metoprolol 2015-09 No Notes: Memor ia tartrate 09-27 (Same as: l 17:00: Lopressor) Furosemide 2015-09 No Notes: Memor ia 09-27 (Same as: l 17:00: Lasix) May cause GI upset. Give with food or milk. Fenofibrate 2015-09 No Notes: David cedrick 09-27 (Same as: l 17:00: Tricor) Vitamin D3 2015-09 No Notes: Memor ia 09-27 Same as : l 17:00: Vitamin D3 Vitamin C 2015-09 No Notes: Memori a 09-27 (Same as: l 17:00: Vitamin C) Amlodipine 2015-09 No Notes: Memor ia 09-27 (Same as: l 17:00: Norvasc) Amiodarone 2015-09 No Notes: Memor ia 09-27 (Same as: l 17:00: Cordarone) venlafaxine 2015-09 No Notes: David cedrick 09-27 (Same As: l 17:00: Effexor) Symbicort 2015-09 No Notes: Memori a 160/4.5 09-27 (Same as: l inhalation 16:32: Symbicort) H ermann aerosol 00 WASTE: with Aerosol - adapter Return to Pharmacy Insulin, 2015-09 No Notes: Memoria Aspart, 09-27 Roll in l Human 16:01: palms of hands gently; Do not shake vigorously . (Same as: NovoLOG) "single patient use only" WASTE: F/P - Black; E - Municipal Trash Bin Stable for 28 days at room temperatur e. Expires in days from ____Date Dextrose 2015-09 No 12.5 gm, Memor ia 50% Syringe 09-27 25 mL, l 16:01: Route: IVP, Drug Form: INJ, Dosing Weight 109.545, kg, PRN, PRN Blood Glucose Results, Start date: 07/28/16 10:01:00 CANAL EQUIPMENT MAINTENANCE SUPERVISOR, Duration: 30 day, Stop date: 08/27/16 10:00:00 CANAL EQUIPMENT MAINTENANCE SUPERVISOR Glucagon 2015-09 No 1 mg, Memoria 09-27 Route: IM, l 16:01: Drug form: PDR/INJ, PRN, Dosing Weight 109.545, kg, PRN Blood Glucose Results, Start date: 07/28/16 10:01:00 CANAL EQUIPMENT MAINTENANCE SUPERVISOR, Duration: 30 day, Stop date: 08/27/16 10:00:00 CANAL EQUIPMENT MAINTENANCE SUPERVISOR Enoxaparin 2015-09 No Notes: Memor ia 09-27 (Same as: l 16:00: Lovenox) [place] Baclofen 2015-09 No Notes: Memoria 09-27 (Same As: l 15:58: Lioresal) [place] Saline 2015-09 No Notes: Memoria Flush 0.9% 09-27 (Same as: l 15:00: BD [place] 00 Posiflush) aspirin 81 2015-09 No Notes: Do Me moria mg tablet, 09-27 not crush l enteric 15:00: or chew. Rudy n coated 00 (Same As: Ecotrin) Famotidine 2015-09 No Notes: Memor ia 09-27 (Same as: l 15:00: Pepcid) [place] 00 Alprazolam 2015-09 No Notes: Memor ia 0.5 MG Oral 09-27 With food l Tablet 14:20: or milk [place] [Xanax] 00 (Same as: Xanax) Saline 2015-09 No Notes: Memoria Flush 0.9% 09-27 (Same as: l 07:29: BD [place] 00 Posiflush) Ondansetron 2015-09 No Notes: David cedrick 09-27 (Same as: l 07:29: Zofran) [place] 00 MEDICATION WASTE Product Size: 4 mg Product Wasted: ___ mg Sodium 2015-09 No 1,000 mL, Memori a Chloride 09-27 Rate: 40 l 0.154 07:29: ml/hr, [place] MEQ/ML 00 Infuse Injectable over: 25 Solution hr, Route: IV, Dosing Weight 97.273 kg, Total Volume: 1,000, Start date: 07/28/16 1:29:00 CANAL EQUIPMENT MAINTENANCE SUPERVISOR, Stop date: 08/27/16 1:28:00 CANAL EQUIPMENT MAINTENANCE SUPERVISOR Aspirin 2015-09 No Notes: Memoria -27 Take with l 05:47: food. [place] 00 Sodium No 1,000 mL, Memori a Chloride 05-30 1,000 l 0.154 15:49: ml/hr, [place] MEQ/ML 00 Infuse Injectable Over: 1 Solution hr, Route: IV, 1,000, Drug form: INJ, ONCE, Priority: STAT, Dosing Weight 97.727 kg, Start date: 05/30/16 10:49:00 CDT, Duration: 1 doses or times, Stop date: 05/30/16 10:49:00 CDT Fenofibrate No 200 mg, Mem oria 6-20 Route: PO, l 14:00: Daily, [place] 00 Dosing Weight 120, kg, Start date: 02/18/15 9:00:00, Duration: 30 day, Stop date: 03/19/15 9:00:00 pantoprazol No Notes: David cedrick e 6-20 Tablet l 14:00: should not [place] 00 be chewed or crushed. (Same as: Protonix) Thyroxine No Notes: Memori a 6-20 Take 1 l 11:30: hour [place] 00 before or 2 hours after meal; Enteral feeds may interefere with the absorption of this medication .(Same as:Levothr oid, Synthroid) Alprazolam No Notes: Memor ia 6-20 With food l 06:01: or milk [place] 00 (Same as: Xanax) TriCor No Notes: Memoria 6-20 (Same as: l 02:00: Tricor) [place] Risperidone No Notes: David cedrick 6-20 (Same as: l 02:00: Risperdal) Lisinopril No Notes: Memor ia 6-20 (Same as: l 02:00: Prinivil, [place] 00 Zestril) latanoprost No Notes: David cedrick 0.05 MG/ML 6-20 Keep l Ophthalmic 02:00: refrigerat H ermann Solution 00 ed. (Same as:Xalatan ) Lantus No 30 unit, Memoria 6-20 Route: l 02:00: SUB-Q, [place] Bedtime, Dosing Weight 120, kg, Start date: 02/17/15 21:00:00, Duration: 30 day, Stop date: 03/18/15 21:00:00 Levemir No Notes: Memoria FlexPen 6-20 Same as l 02:00: Levemir Do not hold insulin without contacting prescriber "single patient use only" Saline No Notes: Memoria Flush 0.9% 6-20 (Same as: l 02:00: BD [place] 00 Posiflush) Docusate No Notes: Memoria 6-20 (Same as: l 02:00: Colace) (Do Not Crush) normal No 1,000 mL, Memori a saline 0.9% 6-20 Rate: 200 l IV 1,000 mL 01:44: ml/hr, Herm Infuse over: 5 hr, Route: IV, Dosing Weight 120 kg, Total Volume: 1,000, Start date: 02/17/15 20:44:00, Duration: 30 day, Stop date: 03/19/15 20:43:00 Symbicort No Notes: Memori a 160/4.5 6-20 (Same as: l inhalation 01:00: Symbicort) H ermann aerosol 00 with adapter Sodium No 1,000 mL, Memori a Chloride -20 1,000 l 0.154 00:00: ml/hr, MEQ/ML 00 Infuse Injectable Over: 1 Solution hr, Route: IV, ONCE, Priority: STAT, Dosing Weight 120 kg, Start date: 02/17/15 19:00:00, Duration: 1 doses or times, Stop date: 02/17/15 19:00:00 Albuterol No Notes: Memori a 0.833 MG/ML 20 (Same as: l 00:00: Duoneb) Ipratropium 00 [place] 0.167 MG/ML Inhalant Solution Lactulose No Notes: Memori a 6-19 (Same l 23:00: as:Chronul ac) Enoxaparin No Notes: Memor ia 6-19 (Same as: l 22:00: Lovenox) Brimonidine No Notes: David cedrick tartrate -19 (Same as: l 1.5 MG/ML 22:00: Alphagan-P He rmann Ophthalmic ) Solution Betaxolol No Notes: Memori a 2.5 MG/ML 6-19 (Same As: l Ophthalmic 22:00: Betoptic Her andujar Suspension 00 S) [Betoptic S] Aspirin No Notes: Memoria 6-19 Take with l 22:00: food. [place] 00 Vitamin C No Notes: Memori a 6-19 (Same as: l 22:00: Vitamin C) Amlodipine No Notes: Memor ia 6-19 (Same as: l 22:00: Norvasc) [place] 00 Amiodarone No Notes: Memor ia 6-19 (Same as: l 22:00: Cordarone) Alprazolam No Notes: Memor ia 6-19 With food l 22:00: or milk [place] (Same as: Xanax) venlafaxine No Notes: David cedrick 6-19 (Same As: l 22:00: Effexor) [place] 00 Januvia No Notes: Memoria 6-19 (Same as: l 22:00: Januvia) [place] 00 docusate No Notes: Memoria sodium 100 -19 (Same as: l mg oral 22:00: Colace) [place] capsule 00 (Do Not Crush) dexmedetomi No Notes: David cedrick dine 200 -19 (Same as: l microgram 21:38: Precedex) Her andujar 00 potassium No Notes: Memori a phosphate + 6-19 (Same as: l Sodium 21:37: K [place] Chloride 00 Phosphate. 0.9% IV 250 ) 1 mMol mL phoshate has 1.47 mEq potassium Infuse over 4 hours sodium No Special Memoria phosphate + 6-19 Instructio l Sodium 21:37: ns: FOR [place] Chloride ICU USE 0.9% IV 250 ONLY mL potassium No Notes: Memori a chloride 6-19 (Same as: l 21:37: Potassium [place] Chloride) Calcium No Notes: Memoria Carbonate 6-19 (Same As: l 500 MG 21:37: Tums) [place] Chewable 00 Calcium Tablet Carbonate 500 mg = 200 mg elemental calcium Dose = mg calcium carbonate ( mg elemental calcium) Magnesium No Notes: Memori a Oxide 02-17 (Same as: l 21:37: Mag-Ox [place] 00 400) Magnesium oxide [id number] g elemental magnesium Dose=____m g magnesium oxide (___mg elemental magnesium) Calcium No Special Memoria Gluconate 02-17 Instructio l 21:37: ns: FOR [place] ICU USE ONLY Neutra-Phos No Notes: David cedrick - (Same as: l 21:37: Neutra-Bhupinder [place] 00 s) Each 1.25 gm pkt has 250mg phosphorou s. Mix w/2.5oz water and stir. Magnesium No Special Memor ia Sulfate 02-17 Instructio l 21:37: ns: FOR ICU USE ONLY Saline No Notes: Memoria Flush 0.9% 02-17 (Same as: l 21:37: BD Posiflush) Glucose 50 No 1,000 mL, Me moria MG/ML / 02-17 Rate: 125 l Sodium 21:37: ml/hr, Ch[place] Infuse 0.0769 over: 8 MEQ/ML hr, Route: Injectable IV, Dosing Solution Weight 120 kg, Total Volume: 1,000, Start date: 02/17/15 16:37:00, Duration: 30 day, Stop date: 03/19/15 16:36:00 Albuterol No Notes: Memori a 0.833 MG/ML 02-17 (Same as: l / 21:37: Duoneb) Ipratropium 00 [place] 0.167 MG/ML Inhalant Solution Bisacodyl No Notes: Memori a - (Same As: l 21:37: Dulcolax, Bisco-Lax) Acetaminoph No Notes: Do M emoria en 02-17 not exceed l 21:37: 4 gm/day. [place] (Same as: Tylenol) NovoLOG No Notes: Memoria FlexPen - Roll in l 21:30: palms of [place] hands gently; Do not shake vigorously . (Same as: NovoLOG) "single patient use only" Stable for 28 days at room temperatur e. Expires in days from ____Date Humalog No 10 unit, Memori a 02-17 Route: l 21:30: SUB-Q, [place] 00 TID-Before Meals, Dosing Weight 120, kg, Start date: 02/17/15 16:30:00, Duration: 30 day, Stop date: 03/19/15 11:30:00 metoprolol No Notes: Memor ia tartrate 02-17 (Same as: l 21:00: Lopressor) Lorazepam No Notes: Memori a 02-17 (Same as: l 20:55: Ativan) Sodium No Notes: Memoria Chloride 3% 02-17 "Administe l (Hypertonic 20:52: r by Rudy shankar ) IV 200 mL 00 central venous catheter or a peripheral ly inserted central catheter (PICC) line. 3% Sodium Chloride may be infused via peripheral administra tion into large vein (antecubit al) only in the case of emergency for short term use until a central line can be inserted" (Same as: Hypertonic Saline 3%) normal No 1,000 mL, Memori a saline 0.9% 02-17 Rate: 110 l IV 1,000 mL 18:41: ml/hr, Herm deepa 00 Infuse over: 9.1 hr, Route: IV, Dosing Weight 127.273 kg, Total Volume: 1,000, Start date: 02/17/15 13:41:00, Duration: 30 day, Stop date: 03/19/15 13:40:00 Sodium No 1,000 mL, Memori a Chloride 02-17 1,000 l 0.154 17:06: ml/hr, [place] MEQ/ML 00 Infuse Injectable Over: 1 Solution Hour, Route: IV, ONCE, Priority: STAT, Dosing Weight 127.273 kg, Start date: 02/17/15 12:06:00, Duration: 1 doses or times, Stop date: 02/17/15 12:06:00 Keppra No 1,000 mg, Memori a 19 100 mL, l 16:07: Route: IV, [place] 00 Drug form: INJ, ONCE, Dosing Weight 127.273, kg, Start date: 02/17/15 11:07:00, Stop date: 02/17/15 11:07:00 Ativan No 1 mg, Memoria 02-17 Route: l 16:06: IVP, Drug [place] 00 form: INJ, ONCE, Dosing Weight 127.273, kg, Priority: STAT, Start date: 02/17/15 11:06:00, Stop date: 02/17/15 11:06:00 omega-3 Yes 1,000 mg = David cedrick polyunsatur 02-17 1 cap, PO, l ated fatty 15:49: Daily, 0 Her andujar acids 1000 00 Refill(s) mg oral capsule Vitamin C Yes 1,000 mg = Me moria 500 mg oral 02-17 2 tab, PO, l tablet 15:48: Daily, 0 [place] 00 Refill(s) latanoprost Yes 1 drp, David cedrick 0.05 MG/ML 02-17 BOTH EYES, l Ophthalmic 15:48: Bedtime, 0 H ermann Solution 00 Refill(s) Betaxolol Yes 2 drp, Memori a 2.5 MG/ML 02-17 BOTH EYES, l Ophthalmic 15:47: BID, 0 Padmini nn Suspension 00 Refill(s) [Betoptic S] Brimonidine Yes 1 drp, David cedrick tartrate 02-17 BOTH EYES, l 1.5 MG/ML 15:47: BID, 0 Rudy n Ophthalmic 00 Refill(s) Solution Symbicort Yes 2 puff, Memor ia 160/4.5 -19 INHALATION l inhalation 15:46: , BID, 0 Her andujar aerosol 00 Refill(s) with adapter tiotropium Yes 18 Memoria 0.018 6-19 microgram, l MG/ACTUAT 15:45: INHALATION He rmann Inhalant 00 , Daily, 0 Powder Refill(s) [Spiriva] Ipratropium Yes 500 Memori a 6-19 microgram, l 15:45: NEB, QID, [place] 00 0 Refill(s) Humalog Yes 10 unit, Memori a 6-19 SUB-Q, l 15:44: TID-Before 00 Meals, 0 Refill(s) Lantus Yes 30 unit, Memoria 6-19 SUB-Q, l 15:44: Bedtime, 0 [place] 00 Refill(s) busPIRone 5 Yes 5 mg = 1 Me moria mg oral 6-19 tab, PO, l tablet 15:43: TID, 0 [place] 00 Refill(s) venlafaxine Yes 75 mg = 1 M emoria 75 mg oral 6-19 tab, PO, l tablet 15:42: Daily, 0 [place] 00 Refill(s) Alprazolam No 1 mg, PO, Me moria 6-19 Bedtime, 0 l 15:40: Refill(s) [place] 00 docusate Yes 200 mg = 2 Mem oria sodium 100 6-19 cap, PO, l mg oral 15:34: BID, 0 [place] capsule 00 Refill(s) Saline No Notes: Memoria Flush 0.9% 02-17 (Same as: l 14:43: BD [place] 00 Posiflush) Naloxone No Notes: Memoria 6-19 Same as l 14:41: Narcan [place] 00 Albuterol 2013-09 Yes 3 ml, Memoria 0.833 MG/ML 0-11 INHALATION l / 17:55: , QID, # [place] Ipratropium 00 60 ea, 0 [place] Refill(s) 0.167 MG/ML Inhalant Solution [DuoNeb] {21 2013-09 Yes Special Memoria (Methylpred 0-11 Instructio l nisolone 4 17:55: ns: Take Her andujar MG Oral 00 with or Tablet without [Medrol]) } food Pack [Medrol Dosepak] Doxycycline 2013-09 Yes 100 mg = 1 Memoria 100 MG Oral 0-11 cap, PO, l Capsule 17:55: [id number], # Herm deepa 00 14 cap, 0 Refill(s) Prednisone 2013-09 No Notes: Memor ia 0-11 Take with l 14:00: food. [place] 00 Budesonide 2013-09 No Notes: Memor ia 0.25 MG/ML 0-10 (Same As: l Inhalant 14:28: Pulmicort) Her andjuar Solution 00 [Pulmicort] Azithromyci 2013-09 No Notes: David cedrick n 0-10 Same as: l 04:00: Zithromax [place] Fenofibrate 2013-09 No Notes: David cedrick 0-10 (Same as: l 02:00: Tricor) [place] 00 Effexor XR 2013-09 No Notes: Do Me moria 0-09 not open, l 14:00: crush, or [place] 00 chew. (Same As: Effexor XR) One-A-Day 2013-09 No Notes: Memori a Men 50 Plus 0-09 Give with l 14:00: food. [place] 00 (Same As: Stress 600 with Zinc) Influenza 2013-09 No Notes: Memori a Virus 0-09 (Same as: l Vaccine, 14:00: Fluzone Rudy n Inactivated 00 [place]- nt) (H3N2)-like virus ([place] X-175C) strain / Influenza Virus Vaccine, Inactivated A-[place]- , IVR-148 (H1N1) strain / Influenza Virus Vaccine, Inactivated , B-- -2005-lik Furosemide 2013-09 No Notes: Memor ia 0-09 (Same as: l 14:00: Lasix) [place] May cause GI upset. Give with food or milk. Docusate 2013-09 No Notes: Memoria 0-09 (Same as: l 14:00: Colace) [place] (Do Not Crush) Vitamin D3 2013-09 No Notes: Memor ia 0-09 Same as l 14:00: Vitamin D3 [place] aspirin 2013-09 No Notes: Memoria 0-09 Take with l 14:00: food. [place] 00 Amlodipine 2013-09 No Notes: Memor ia 0-09 (Same as: l 14:00: Norvasc) [place] 00 Amiodarone 2013-09 No Notes: Memor ia 0-09 (Same as: l 14:00: Cordarone) [place] 00 Alprazolam 2013-09 No Notes: Memor ia 0-09 With food l 14:00: or milk [place] (Same as: Xanax) Enoxaparin 2013-09 No Notes: Memor ia 0-09 (Same as: l 13:00: Lovenox) [place] 00 Thyroxine 2013-09 No Notes: Memori a 0-09 Take 1 l 11:30: hour [place] 00 before or 2 hours after meal; Enteral feeds may interefere with the absorption of this medication . (Same as:Levothr oid) Albuterol 2013-09 No Notes: Memori a 0.833 MG/ML 0-09 (Same as: l / 08:00: Duoneb) [place] Ipratropium 00 [place] 0.167 MG/ML Inhalant Solution methylPREDN 2013-09 No Notes: David cedrick ISolone 0-09 (Same l SODium 05:00: as:Solu-ME Padmini nn SUCCinate 00 DROL, A-Methapre d) Doxycycline 2013-09 No Notes: NO M emoria 0-09 MILK/ANTAC l 05:00: IDS/IRON [place] 00 Take 1 hour before or 2 hours after dairy products Levemir 2013-09 No Notes: Memoria 0-09 Same as l 04:45: Levemir [place] 00 "single patient use only" Trazodone 2013-09 No Notes: Memori a 0-09 (Same As: l 04:38: Desyrel) [place] 00 Risperidone 2013-09 No Notes: David cedrick 0-09 (Same as: l 04:38: Risperdal) [place] metoprolol 2013-09 No Notes: Memor ia tartrate 0-09 (Same as: l 04:37: Lopressor) [place] Lisinopril 2013-09 No Notes: Memor ia 0-09 (Same as: l 04:37: Prinivil, [place] Zestril) Alprazolam 2013-09 No Notes: Memor ia 0-09 With food l 04:35: or milk [place] (Same as: Xanax) Insulin, 2013-09 No Notes: Memoria Aspart, 0-09 Roll in l Human 04:33: palms of [place] hands gently; Do not shake vigorously . (Same as: NovoLOG) "single patient use only" Stable for 28 days at room temperatur e. Expires in days from ____Date Glucagon 2013-09 No 1 mg, Memoria 0-09 Route: IM, l 04:33: Drug form: [place] 00 PDR/INJ, PRN, Dosing Weight 110.966, kg, PRN Blood Glucose Results, Start date: 06/08/14 23:33:00, Duration: 30 day, Stop date: 07/08/14 22:32:00 Dextrose 2013-09 No 25 gm, 50 David cedrick 50% Syringe 0-09 mL, Route: l 04:33: IVP, Drug Form: INJ, Dosing Weight 110.966, kg, PRN, PRN Blood Glucose Results, Start date: 06/08/14 23:33:00, Duration: 30 day, Stop date: 07/08/14 22:32:00 Baclofen 2013-09 No Notes: Memoria 0-09 (Same As: l 04:31: Lioresal) Albuterol 2013-09 No Notes: SEE Me moria 0.83 MG/ML 0-09 RT l Inhalant 04:20: DOCUMENTAT Her andujar Solution 00 ION Non-Formula 2013-09 Yes Special Mem oria ry Home 0-09 Instructio l Medication 04:18: ns: Unknown eye drops; filled at [facility] in [place] aspirin 2013-09 Yes 81 mg, PO, David cedrick 0-09 Daily l 04:18: Vitamin D3 2013-09 Yes 200 Memoria 0-09 IntlUnit, l 04:18: PO, Daily One-A-Day 2013-09 Yes 1 tab, PO, Me moria Men 50 Plus 0-09 Daily l 04:17: Docusate 2013-09 Yes 100 mg, Memori a 0-09 PO, Daily l 04:16: Thyroxine 2013-09 Yes 25 Memoria 0-09 microgram, l 04:15: PO, Daily Januvia 2013-09 Yes 50 mg, PO, David cedrick 0-09 Daily l 04:15: Fenofibrate 2013-09 Yes 200 mg, Mem oria 0-09 PO, Daily l 04:13: Amlodipine 2013-09 Yes 10 mg, PO, M emoria 0-09 Daily l 04:12: Baclofen 2013-09 Yes 10 mg, PO, Mem oria 0-09 Q8H, as l 04:12: needed for muscle spasm Risperidone 2013-09 Yes 2 mg, PO, M emoria 0-09 Bedtime l 04:11: Lisinopril 2013-09 Yes 20 mg, PO, M emoria 0-09 BID l 04:11: Trazodone 2013-09 Yes 50 mg, PO, Me moria 0-09 Bedtime l 04:10: Alprazolam 2013-09 Yes 1 mg, PO, Me moria 0-09 Bedtime l 04:10: Alprazolam 2013-09 Yes 0.5 mg, David cedrick 0-09 PO, TID l 04:09: Furosemide 2013-09 Yes 20 mg, PO, M emoria 0-09 Daily l 04:09: Zithromax 2013-09 No Notes: Memori a 0-09 Same as: l 03:09: Zithromax Albuterol 2013-09 No Notes: Memori a 0.833 MG/ML 0-09 (Same as: l / 01:00: Duoneb) Ipratropium 00 [place] 0.167 MG/ML Inhalant Solution [DuoNeb] Saline 2013-09 No Notes: Memoria Flush 0.9% 0-09 (Same as: l 00:26: BD Posiflush) Lisinopril Lisinopril Yes Jenna [address] [facility] Aspirin Aspirin Yes Jenna [address] [facility] Betaxolol Betaxolol Yes Jenna [address] HCl HCl [facility] into [facility] Lisinopril Lisinopril Yes Jenna [address] [facility] Clonidine Clonidine Yes Jenna TAKE [address] HCl HCl [place] TABLET BY [facility]TH [facility] TWICE l DAILY [facility] Atorvastati Atorvastati Yes Jenna TAKE [address] [facility] n Calcium n Calcium [place] TABLET BY [facility] EVERY l NIGHT AT [facility] Januvjose roberto Savageuvia Yes Jenna TAKE [address] [facility] TABLET BY [facility] DAILY l [facility] Venlafaxine Venlafaxine Yes Jenna [address] [facility] HCl ER HCl ER [place] with food [facility] Latanoprost Latanoprost Yes Jenna INT [address] [facility] IN OU QHS. [facility] Trazodone Trazodone Yes Jenna TK [address] [facility] HCl HCl [place] QHS. [facility] BusPIRone BusPIRone Yes Jenna [address] [facility] [address] HCl HCl [facility] Levothyroxi Levothyroxi Yes Jenna [address] [facility] ne Sodium ne Sodium [place] on an [facility] empty [facility] stomach in l the [facility] ent Clinics Venlafaxine Venlafaxine Yes Jenna TAKE [address] [facility] HCl HCl [place] TABLET BY [facility]TH [facility] EVERY DAY l WITH FOOD. [facility] Furosemide Furosemide Yes Jenna [address] [facility] BD Pen BD Pen Yes Jenna INJECT [facility] Needle Disha Needle Disha [facility] USING [facility] - U/F U/F INSULIN D. [facility] Divalproex Divalproex Yes Jenna as [facility] Sodium ER Sodium ER [facility] directed [facility] Vitamin C Vitamin C Yes Jenna [address] [facility] Docusate Docusate Yes Jenna [address] Sodium Sodium Mill[place] as needed L es - [facility] Xarelto Xarelto Yes Jenna [address] [facility] DAILY [facility] Baclofen Baclofen Yes Jenna TK [address] [facility] Q 8 H PRN. [facility] Lasix Lasix Yes Jenna [address] [facility] DAILY [facility] Tresiba Tresiba Yes Jenna [address] [facility] FlexTouch FlexTouch [facility] Amiodarone Amiodarone Yes Jenna TAKE [address] [facility] HCl HCl [place] TABLET BY [facility] M[facility]TH [facility] EVERY DAY. l [facility] Risperidone Risperidone Yes Jenna TAKE [address] [facility] TABLETS BY [facility] - MOUTH ONCE [facility]oria A DAY. l [facility] Symbicort Symbicort Yes Jenna inhale [address] [facility] puffs po [facility] - bid. [facility]oria l [facility] Amlodipine Amlodipine Yes Jenna TAKE [address] [facility] [address] Besylate Besylate [place] TABLET BY [facility] M[facility]TH [facility]oria DAILY l [facility] ent [facility]ics Vital Signs Vital Name Observation Time Observation Value Comments Source Respitory Rate 2017-06-10 22:17:00 Memori al [place] Systolic (mm Hg) 2017-06-10 22:17:00 David rial [place] Diastolic (mm Hg) 2017-06-10 22:17:00 Mem orial [place] Temperature Oral (F) 2017-06-10 22:17:00 98.2 F [facility] [place] Heart Rate 2017-06-10 22:17:00 Memorial [place] Systolic (mm Hg) 2017-06-10 17:00:00 David rial [place] Diastolic (mm Hg) 2017-06-10 17:00:00 Mem orial [place] Respitory Rate 2017-06-10 17:00:00 Memori al [place] Heart Rate 2017-06-10 17:00:00 Memorial [place] Temperature Oral (F) 2017-06-10 17:00:00 98.3 F [facility] [place] Heart Rate 2017-06-10 12:50:00 [facility] [place] Temperature Oral (F) 2017-06-10 12:50:00 98.2 F Memorial [place] Respitory Rate 2017-06-10 12:50:00 Memori al [place] Systolic (mm Hg) 2017-06-10 12:50:00 David rial [place] Diastolic (mm Hg) 2017-06-10 12:50:00 [facility] BMI Calculated 2017 16:42:00 [facility] Weight 2017 16:42:00 [facility] Height 2017 16:42:00 185.42 cm [facility] BMI Calculated 2017 15:56:00 [facility] Weight 2017 15:56:00 [facility] Height 2017 15:56:00 185.42 cm [facility] BMI Calculated 2017 10:33:00 [facility] Height 2017 10:33:00 185.42 cm [facility] Weight 2017 10:33:00 [facility] Heart Rate 2016-07-30 18:00:00 [facility] Respitory Rate 2016-07-30 18:00:00 [facility] Systolic (mm Hg) 2016-07-30 18:00:00 [facility] Diastolic (mm Hg) 2016-07-30 18:00:00 [facility] Temperature Oral (F) 2016-07-30 18:00:00 97.5 F [facility] Systolic (mm Hg) 2016-07-30 14:00:00 [facility] Diastolic (mm Hg) 2016-07-30 14:00:00 [facility] Heart Rate 2016-07-30 14:00:00 [facility] Respitory Rate 2016-07-30 14:00:00 [facility] Temperature Oral (F) 2016-07-30 14:00:00 97.5 F [facility] Respitory Rate 2016-07-30 13:39:00 [facility] Temperature Oral (F) 2016-07-30 06:19:00 98.1 F [facility] Heart Rate 2016-07-30 06:19:00 [facility] Systolic (mm Hg) 2016-07-30 06:19:00 [facility] Diastolic (mm Hg) 2016-07-30 06:19:00 [facility] Weight 2016-07-28 14:21:00 [facility] Weight 2016-07-28 09:33:00 [facility] Height 2016-07-28 09:33:00 182.88 cm [facility] BMI Calculated 2016-07-28 09:33:00 [facility] Weight 2016-07-28 02:47:00 [facility] BMI Calculated 2016-07-28 02:47:00 [facility] Height 2016-07-28 02:47:00 180.34 cm [facility] Respitory Rate 2016-05-30 18:30:00 [facility] Systolic (mm Hg) 2016-05-30 18:30:00 [facility] Diastolic (mm Hg) 2016-05-30 18:30:00 [facility] [facility] Temperature Oral (F) 2016-05-30 18:30:00 98.6 F [facility] Respitory Rate 2016-05-30 18:00:00 [facility] Systolic (mm Hg) 2016-05-30 18:00:00 [facility] [place] Diastolic (mm Hg) 2016-05-30 18:00:00 [facility] [place] Respitory Rate 2016-05-30 17:30:00 [facility] Systolic (mm Hg) 2016-05-30 17:30:00 [facility] Diastolic (mm Hg) 2016-05-30 17:30:00 [facility] Heart Rate 2016-05-30 15:14:00 [facility] BMI Calculated 2016-05-30 14:36:00 [facility] Weight 2016-05-30 14:36:00 [facility] Heart Rate 2016-05-30 14:36:00 [facility] Height 2016-05-30 14:36:00 182.88 cm [facility] Temperature Oral (F) 2016-05-30 14:36:00 98.7 F [facility] Systolic (mm Hg) 2015-02-19 16:00:00 [facility] Diastolic (mm Hg) 2015-02-19 16:00:00 [facility] Respitory Rate 2015-02-19 16:00:00 [facility] Systolic (mm Hg) 2015-02-19 15:00:00 [facility] [place] Diastolic (mm Hg) 2015-02-19 15:00:00 [facility] Respitory Rate 2015-02-19 15:00:00 [facility] Respitory Rate 2015-02-19 14:00:00 [facility] Systolic (mm Hg) 2015-02-19 14:00:00 [facility] [place] Diastolic (mm Hg) 2015-02-19 14:00:00 [facility] Temperature Oral (F) 2015-02-18 22:07:00 97.7 F [facility] Temperature Oral (F) 2015-02-18 16:51:00 98.6 F [facility] Weight 2015-02-18 15:03:00 [facility] Temperature Oral (F) 2015-02-18 12:48:00 98.5 F [facility] Heart Rate 2015-02-17 18:50:00 [facility] Height 2015-02-17 18:41:00 185.42 cm [facility] Weight 2015-02-17 18:41:00 [facility] BMI Calculated 2015-02-17 18:41:00 [facility] Heart Rate 2015-02-17 17:52:00 [facility] Heart Rate 2015-02-17 17:34:00 [facility] Weight 2015-02-17 14:33:00 [facility] BMI Calculated 2015-02-17 14:33:00 [facility] Height 2015-02-17 14:33:00 185.42 cm [facility] Diastolic (mm Hg) 2014-06-11 17:24:00 [facility] Systolic (mm Hg) 2014-06-11 17:24:00 [facility] Respitory Rate 2014-06-11 17:24:00 [facility] Heart Rate 2014-06-11 17:24:00 [facility] Temperature Oral (F) 2014-06-11 17:24:00 97.4 F [facility] Respitory Rate 2014-06-11 12:27:00 [facility] Heart Rate 2014-06-11 12:26:00 [facility] Temperature Oral (F) 2014-06-11 12:26:00 98.5 F [facility] Systolic (mm Hg) 2014-06-11 12:26:00 [facility] Diastolic (mm Hg) 2014-06-11 12:26:00 [facility] Respitory Rate 2014-06-11 12:26:00 [facility] Systolic (mm Hg) 2014-06-11 05:07:00 [facility] Diastolic (mm Hg) 2014-06-11 05:07:00 [facility] Temperature Oral (F) 2014-06-11 05:07:00 98.4 F [facility] Heart Rate 2014-06-11 05:07:00 [facility] BMI Calculated 2014-06-09 05:37:00 [facility] Weight 2014-06-09 05:37:00 [facility] Height 2014-06-09 05:37:00 185.42 cm Mary Magaña Height 2014-06-09 00:05:00 185.42 cm Mary Magaña Weight 2014-06-09 00:05:00 Mary Magaña BMI Calculated 2014-06-09 00:05:00 Kelly Mcnally Procedures Procedure Date / Time Performed Performing Clinician [facility] e Aortic aneurysm repair Mary Magaña Encounters Start End Encounter Admission Attending Care Care Encounter Source Date/Time Date/Time Type Type Clinicians Facility Department ID 2019-09-23 2019-09-23 [facility] [id number] [facility] 15:09:00 15:09:00 [facility] Medicine Medicine Outpati ent Clinics 2019-09-09 2019-09-09 [facility] [id number] [facility] 11:30:00 11:30:00 [facility] Medicine l Medicine Outpati ent Clinics 2019-08-05 2019-08-05 [facility] [id number] [facility] 14:57:00 14:57:00 [facility] Medicine Medicine Outpati ent Clinics 2019-08-02 2019-08-02 [facility] [id number] [facility] 14:24:00 14:24:00 [facility] Medicine Medicine Outpati ent Clinics 2019-07-26 2019-07-26 [facility] [id number] [facility] 13:14:00 13:14:00 [facility] Medicine Medicine Outpati ent Clinics 2019-07-20 2019-07-20 [facility] [id number] [facility] 09:08:00 09:08:00 [facility] Medicine Medicine Outpati ent Clinics 2019-07-14 2019-07-14 [facility] [id number] [facility] 15:20:00 15:20:00 [facility] Medicine Medicine Outpati ent Clinics 2019-06-24 2019-06-24 [facility] [id number] [facility] 11:00:00 11:00:00 [facility] Medicine Medicine Outpati ent Clinics 2019-06-01 2019-06-01 [facility] [id number] [facility] [address] 12:18:00 12:18:00 [place] [address] [place] [facility] Medicine Outpati ent Clinics 2019-05-31 2019-05-31 [facility] [id number] [facility] 14:36:00 14:36:00 [facility] Medicine Outpati ent Clinics 2019-05-27 2019-05-27 [facility] [id number] [facility] 10:30:00 10:30:00 [facility] Medicine Outpati ent Clinics 2019-04-12 2019-04-12 [facility] [id number] [facility] 14:45:00 14:45:00 [facility] Medicine Outpati ent Clinics 2019-03-22 2019-03-22 [facility] [id number] [facility] 10:30:00 10:30:00 [facility] Medicine Outpati ent Clinics 2019-03-08 2019-03-08 [facility] [id number] [facility] 14:45:00 14:45:00 [facility] Medicine Outpati ent Clinics 2019-03-02 2019-03-02 [facility] [id number] [facility] 10:30:00 10:30:00 t [facility] Medicine Outpati ent Clinics 2018-12-28 2018-12-28 [facility] [id number] [facility] 15:15:00 15:15:00 [facility] Medicine Outpati ent Clinics 2018-12-10 2018-12-10 [facility] [id number] [facility] 14:52:00 14:52:00 t [facility] Medicine Outpati ent Clinics 2018-11-19 2018-11-19 [facility] [id number] [facility] [address] 11:30:00 11:30:[address] [facility] Outpati ent Clinics 2018-10-22 2018-10-22 [facility] [id number] [address] 11:45:00 11:45:00 [facility] Outpati ent Clinics 2018-09-18 2018-09-18 [facility] [id number] 11:48:00 11:48:00 [facility] Outpati ent Clinics 2018-09-16 2018-09-16 [facility] [id number] [facility] 15:42:00 15:42:00 [facility] 2017 2017-06-10 Outpatient Katherine, [facility] [id number] 05:29:00 17:37:00 Giancarlo Edwards 2016-12-02 2016-12-31 Outpatient Blank, [facility] [id number] 13:13:00 23:59:00 Farhad Chadwick 2016-10-02 2016-10-31 Outpatient Blank, [facility] [id number] 10:00:00 23:59:00 Farhad Chadwick 2016-07-27 2016-07-30 Outpatient Dionte, [facility] [id number] 20:46:00 14:34:00 Mohtacho Keane 2016-05-07 2016-06-05 Outpatient Blank, [facility] [id number] 13:08:00 23:59:00 Farhad Genao 2016-05-30 2016-05-30 Outpatient Demarcus, [facility] [id number] 09:35:00 13:49:00 Ant Polk 2016-02-06 2016-03-06 Outpatient Blank, [facility] [id number] 13:04:00 23:59:00 Farhad Genao 2015-12-12 2016-01-10 Outpatient Blank, [facility] [id number] 13:29:00 23:59:00 Farhad Genao 2015-10-24 2015-11-22 Outpatient Blank, [facility] [id number] 13:00:00 23:59:00 Farhad Genao 2015-09-11 2015-10-10 Outpatient Jennifer [facility] [id number] 09:27:00 23:59:00 Farhad Genao 00 2015-09-15 2015-09-15 Outpatient Jennifer [id number] 11:54:00 23:59:00 Farhad Genao [id number] 2015-02-17 2015-02-19 Outpatient Alla [facility] [id number] 09:32:00 12:39:00 Angel Hoyt 2014-06-08 2014-06-11 Outpatient Mariza [facility] [id number] 18:44:00 14:30:00 , Negro 01 Results Test Description Test Time Test Comments Results Result Comments Source CHEM PANEL 2017-06-09 83 [facility] 10:26:00 CHEM PANEL 2017-06-09 9.0 [facility] 10:26:00 CHEM PANEL 2017-06-09 8.0 [facility] 10:26:00 CHEM PANEL 2017-06-09 0.91 [facility] 10:26:00 CHEM PANEL 2017-06-09 96 [facility] 10:26:00 CHEM PANEL 2017-06-09 37 [facility] 10:26:00 CHEM PANEL 2017-06-09 137 [facility] 10:26:00 CHEM PANEL 2017-06-09 132 [facility] 10:26:00 CHEM PANEL 2017-06-09 12 [facility] 10:26:00 CHEM PANEL 2017-06-09 4.0 [facility] 10:26:00 HEMATOLOGY 2017-06-09 0.9 [facility] 10:26:00 HEMATOLOGY 2017-06-09 5.6 [facility] 10:26:00 HEMATOLOGY 2017-06-09 1.2 [facility] 10:26:00 HEMATOLOGY 2017-06-09 1.2 [facility] 10:26:00 HEMATOLOGY 2017-06-09 0.1 [facility] 10:26:00 HEMATOLOGY 2017-06-09 0.2 [facility] 10:26:00 HEMATOLOGY 2017-06-09 2.0 [facility] 10:26:00 HEMATOLOGY 2017-06-09 14.8 [facility] 10:26:00 HEMATOLOGY 2017-06-09 14.9 [facility] 10:26:00 HEMATOLOGY 2017-06-09 67.4 [facility] 10:26:00 HEMATOLOGY 2017-06-09 14.4 [facility] 10:26:00 HEMATOLOGY 2017-06-09 324 [facility] 10:26:00 HEMATOLOGY 2017-06-09 8.9 [facility] 10:26:00 HEMATOLOGY 2017-06-09 33.7 [facility] 10:26:00 HEMATOLOGY 2017-06-09 3.48 [facility] 10:26:00 HEMATOLOGY 2017-06-09 10.5 [facility] 10:26:00 HEMATOLOGY 2017-06-09 89.8 [facility] 10:26:00 HEMATOLOGY 2017-06-09 31.2 [facility] 10:26:00 HEMATOLOGY 2017-06-09 10:26:00 Test Item Value Reference Range Interpretation Comme nts MCH (test code = MCH) 30.2 pg 27.0-31.0 [facility] HfndnkcISJWLQHJUC8975-60-88 10:26:008.4[facility] HermannELECTROLYTES 2017-06-05 09:36:006.7[facility] TxwtuejUWPSQRVVRJGL1903-94-42 09:36:0017[facility] NlnbctrATQEAQXRHIMG2825-01-07 09:36:003.5[facility] HsfzxfmPUPKTRTGHMLV3693-52-89 09:36:000.5[facility] IcbaprfRNJUAGSIDNGA3059-49-37 09:36:0085[facility] OYTEAXKMRCJE5602-26-90 09:36:005.2[facility] DiwlqhmRBVPEVMLPJDN9426-10-32 09:36:001.7[facility] ZukstfmCRVUVWDTOHOL2673-00-41 09:36:0018[facility] PCJDGJMJHANJ6039-11-53 09:36:0036[facility] MojijcqCVNTNNHEIFSS5876-44-41 09:36:00 9.1[facility] LkqajurWITSOZOQJABH2640-65-31 09:36:0016[facility] HermannELECTROLYTES 2017-06-05 09:36:0038[facility] SokulwoMLNQJFNOVOSF9021-33-14 09:36:000.3[facility] ReqdjxeUDHVEQOQJMQT4344-75-87 09:36:000.88[facility] BxwwbxlVFEHHIXXYJWB4507-38-26 09:36:91928Ojfvfidb HvwmiydQDVYEOEWEUHF2276-54-45 09:36:003.7[facility] USVIJWGOSTOX4620-30-38 09:36:0097[facility] BhajzmcTEHUBOZEOWOV4372-56-66 09:36:00 15[facility] OeywueuVOZUYDOHBBDN4637-07-79 09:36:83845Pbxttcwp HermannHEMATOLOGY 2017-06-05 09:36:01921Ksbhcdbh XcwkckhMCAHUYIAPT3300-16-14 09:36:008.6[facility] BvtoffiBQLRCJKXOY5378-90-13 09:36:0030.7[facility] YowtjkfUSQWMDIXEK2991-00-09 09:36:0088.8[facility] IkpfjnbSLOBBZMFPY2947-60-71 09:36:003.46[facility] QGJCKRMSAF8216-72-15 09:36:0010.4[facility] TazbvuaZEYHEOCLUY6936-77-69 09:36:00 14.2[facility] RacrvvwXFSPOOJMZA2053-04-03 09:36:0033.8[facility] HermannHEMATOLOGY 2017-06-05 09:36:00 Test Item Value Reference Range Interpretation Comments MCH (test code = MCH) 30.0 pg 27.0-31.0 [facility] EfyofyuUVDZHIFXRQ2447-07-09 09:36:0011.4[facility] HermannHEMATOLOGY 2017-06-05 09:36:001.5[facility] UhhvfzeZIOVEOFHCY7173-00-15 09:36:000.2[facility] FgfqdtbPCTIPUVPRE9747-53-88 09:36:001.3[facility] WmphqviGRLBFBHFCN0955-78-68 09:36:008.3[facility] PygacbbYZRERTISMR5860-29-10 09:36:002.0[facility] ZDOBZWIDDD0905-45-41 09:36:0013.2[facility] QjyoafaXPKFEAQQKJ4181-37-93 09:36:00 11.1[facility] PlzrihaJITXMJOUCM2239-45-03 09:36:0073.2[facility] HermannHEMATOLOGY 2017-06-05 09:36:000.1[facility] SgtblxrUHFDBBEYSQ2647-95-54 09:36:000.5[facility] HermannCHEM FMIYU1584-21-25 15:09:0015[facility] HermannCHEM GUUHJ0080-03-19 15:09:003.7[facility] HermannCHEM QXKJG0608-68-03 15:09:000.5[facility] HermannCHEM NEMXG4301-93-85 15:09:0010.8[facility] HermannCHEM PAWOH2397-88-41 15:09:0083 [facility] HermannCHEM LNNTW5879-41-17 15:09:0043[facility] HermannCHEM PANEL 2017-06-04 15:09:000.3[facility] HermannCHEM RBZPK2248-98-07 15:09:005.4[facility] HermannCHEM WSTTC3080-55-32 15:09:008.9[facility] HermannCHEM SAGGH9831-53-18 15:09:001.7[facility] HermannCHEM MNDXA9222-64-25 15:09:0035[facility] HermannCHEM STQVJ2195-97-24 15:09:0021[facility] HermannCHEM AQHMT7303-56-45 15:09:0019 [facility]annCHEM NGDOD0461-67-75 15:09:000.91[facility] HermannCHEM PANEL 2017-06-04 15:09:53635Xkrjjhpk HermannCHEM NTLAK8656-37-89 15:09:0014[facility] HermannCHEM UVTPT4841-20-95 15:09:0093[facility] HermannCHEM VNMBM9015-38-62 15:09:003.8[facility] HermannCHEM JURTK3658-82-98 15:09:[facility]56[facility]wcjyuj [facility] [place] MIGRSSENEW7572-28-15 15:09:00Moderate *ABN*(06/04/17 10:09 AM)[facility] ALTWKXVXOK6755-59-78 15:09:00Normal (06/04/17 10:09 AM)[facility] HermannHEMATOLOGY 2017-06-04 15:09:00Moderate *ABN*(06/04/17 10:09 AM)[facility]annHEMATOLOGY 2017-06-04 15:09:00Moderate *ABN*(06/04/17 10:09 AM)[facility]annHEMATOLOGY 2017-06-04 15:09:008.0[facility] JuzcpgySMQUAXEVZD4226-03-79 15:09:004.0[facility] DgrwcxaNZZNVQXOBI4179-74-30 15:09:000.0[facility] SuhkiicPKNZKZIVWV4660-02-34 15:09:001.0[facility] EdbwnqfORHLVAMTNV1540-21-45 15:09:007.0[facility] EUEQUGTBPO3484-37-65 15:09:0080.0[facility] GmozlowOLGWVUAPUC5425-26-76 15:09:00 0.1[facility] AxflonwEKKMBVMQMO4071-25-06 15:09:0011.8[facility] HermannHEMATOLOGY 2017-06-04 15:09:001.0[facility] FzjrsulJBWNXIBHZG2956-55-30 15:09:001.1[facility] UblushxHFZRJONWQQ0859-11-79 15:09:00 Test Item Value Reference Range Interpretation Comments MCH (test code = MCH) 29.7 pg 27.0-31.0 [facility] WhpfiafWZJZZKTWUM4699-73-73 15:09:0032.8[facility] HermannHEMATOLOGY 2017-06-04 15:09:0011.0[facility] EgqpioqOOSASPHZFF5368-25-40 15:09:003.68[facility] EyrarzcUBBGYJVMQZ5665-36-62 15:09:0089.0[facility] PwbwtblPNVZHZEQFU9684-38-41 15:09:0014.0[facility] EnpcqytLUPARCTMWV0557-56-77 15:09:0014.4[facility] PKRSNHFHSH9313-78-03 15:09:90601Qviiczsc HbjnphaIHRGMLNORX2244-42-91 15:09:008.5 [facility] ZqezcphQWZAQYFXND6941-23-29 15:09:0033.4[facility] HermannHEMATOLOGY 2017-06-03 20:40:000.4[facility] HhqdahaAXVVICDGGW3978-41-33 20:40:00Normal (06/03/17 3:40 PM)[facility] PqlgrrrLCUKIBXJND7831-48-47 20:40:00Normal (06/03/17 3:40 PM)[facility] CdgihrcTRNMZMXSYB7922-34-69 20:40:000.1[facility] GBJHBGMWLL6575-55-47 09:41:002.0[facility] RaspdqvGJFGMIIBVA6086-24-99 09:41:000.0 [facility] OdkgnesCWOSECCAWR4001-14-22 09:41:0010.0[facility] HermannHEMATOLOGY 2017-05-31 09:41:00Normal (05/31/17 4:41 AM)[facility] SxiqfaiPHXZVBNRAN7045-85-50 09:41:00Normal (05/31/17 4:41 AM)[facility] OfmxfhnKTKIKDUDKA2179-91-79 09:41:00 Moderate *ABN*(05/31/17 4:41 AM)[facility] EberygvQXVLHQBKDO2913-98-37 09:41:00 Test Item Value Reference Range Interpretation Comments Tot Cell Ct (test code = Tot Cell Ct) 100 1 [facility] HermannCHEM FNTVQ1523-25-62 09:27:0038[facility] HermannCHEM PANEL 2017-05-29 09:27:000.4[facility] HermannCHEM XJQIJ1430-83-87 09:27:003.5[facility] HermannCHEM XQIXO0409-08-91 09:27:0016[facility] HermannCHEM GPTRN2057-65-94 09:27:005.0[facility] HermannCHEM CQOTH3555-80-00 09:27:001.5[facility] HermannCHEM CADTP4633-88-11 09:27:0018[facility] HermannCHEM EDYXB6397-50-92 09:27:000.4 [facility]annCHEM ZECVU3242-01-17 09:27:0039[facility] HermannHEMATOLOGY 2017-05-28 07:37:00Normal (05/28/17 2:37 AM)[facility]UR[facility] AND STOOL 2017-05-25 02:42:00Negative (05/24/17 9:42 PM)[facility] STOOL 2017-05-25 02:42:00Performed (05/24/17 9:42 PM)[facility] ST[facility]OL 2017-05-25 02:42:001.0[facility] ITNLH2590-41-90 02:42:00Negative (05/24/17 9:42 PM)[facility] LVUKI5684-87-34 02:42:00Small *ABN*(05/24/17 9:42 PM)[facility] XWZEG6175-07-32 02:42:00Moderate *ABN*(05/24/17 9:42 PM)[facility] PDATL0436-94-68 02:42:00 Negative (05/24/17 9:42 PM)[facility] YPKAU1342-63-52 02:42:00 Trace *ABN*(05/24/17 9:42 PM)[facility] RDSGX8169-66-05 02:42:00 >=1.030 *ABN*(05/24/17 9:42 PM)[facility] EDJGI0648-52-68 02:42:00 Test Item Value Reference Range Interpretation Comments UA pH (test code = UA pH) 5.0 1 5.0-8.0 [facility] DPKNZ5259-30-56 02:42:00Yellow *NA*(05/24/17 9:42 PM) [facility] BCMWU1843-87-53 02:42:00Cloudy *ABN*(05/24/17 9:42 PM) [facility]annCHEM DDAAW7647-02-67 15:55:0014.55[facility] HermannCHEM PANEL 2017-05-24 15:55:001.2[facility] RHHVQ0110-29-43 12:31:00Negative *NA*(05/23/17 7:31 AM)[facility] DKHER6965-98-65 12:31:00Negative (05/23/17 7:31 AM)[facility] BVGZI7564-60-47 12:31:00Negative (05/23/17 7:31 AM)[facility] MWBDJ7777-93-82 12:31:002.0[facility] BHOQR5574-42-27 12:31:00Negative (05/23/17 7:31 AM)[facility] EZBCM1516-37-94 12:31:001[facility] STOOL 2017 12:31:002[facility]annUR[facility] AND QNBFU7043-71-01 12:31:001.020 [facility] JPKKG2062-01-87 12:31:005.0[facility] BUWNV7553-79-80 12:31:00Yellow *NA*(05/23/17 7:31 AM)[facility] KPSCR2636-70-51 12:31:00Clear (05/23/17 7:31 AM)[facility] HermannCARDIAC ENZYMES 2017 11:12:0076[facility] HermannCHEM YHCCG4091-40-67 11:12:001.6[facility] HermannCHEM EIPOK7577-34-23 11:12:71007Mxpinivw HermannSPECIAL CHEMISTRY 2017 11:12:006.5[facility]annUR[facility] AND IEVTF9526-98-52 11:04:00None Seen (07/28/16 5:04 AM)[facility] BNNKJ7154-23-14 11:04:00None Seen (07/28/16 5:04 AM)[facility] NSEAB9447-59-13 11:04:00 Negative (07/28/16 5:04 AM)[facility] DIKLJ3236-32-43 11:04:00 Negative (07/28/16 5:04 AM)[facility] VAIEX2702-33-90 11:04:00 Clear (07/28/16 5:04 AM)[facility] PBXMK1804-07-39 11:04:00 Negative *NA*(07/28/16 5:04 AM)[facility] STCTL5206-64-35 11:04:00Negative *NA*(07/28/16 5:04 AM)[facility] NWVJP3681-06-01 11:04:00 Test Item Value Reference Range Interpretation Comments UA Spec Grav (test code = UA Spec 1.010 1 Grav) [facility] TWFRO2115-81-19 11:04:000.2[facility] FICOK7320-41-29 11:04:00Negative (07/28/16 5:04 AM)[facility] TYEUG7938-87-28 11:04:00 Test Item Value Reference Range Interpretation Comments UA pH (test code = UA pH) 7.0 1 5.0-8.0 [facility] SNKGK5632-46-11 11:04:00Negative (07/28/16 5:04 AM) [facility] EywepdxFKRDWR7332-38-17 11:00:502.35[facility] QhgbjitTWIVSV6909-50-65 11:00:5027[facility] VrtobsdBOWVYD3916-03-66 11:00:5046[facility] HermannLIPIDS 2016-07-28 11:00:94538Qhwiedmc PbrqxrrYKYVXF8734-30-15 11:00:5054[facility] TboxgzzBRLNHF9852-15-65 11:00:48104Mxrxcoqc HermannSPECIAL SHQZEFCUF1396-03-46 11:00:506.1[facility] HermannCARDIAC WEUNEFC3202-96-38 04:12:00<2.0[facility] HermannCARDIAC JCQZVNE8836-94-00 04:12:00<0.02[facility] HermannCARDIAC ENZYMES 2016-07-28 04:12:00<1.0[facility] HermannCARDIAC YDZPJKN0884-58-61 04:12:0049 [facility] HermannCARDIAC QANTNQL6732-89-68 04:12:0032[facility] HermannCHEM PANEL 2016-07-28 04:12:003.3[facility] HermannCHEM UKIOP3551-90-01 04:12:001.0[facility] HermannCHEM KEEKL0398-78-14 04:12:0053[facility] HermannCHEM GNJTF9764-96-18 04:12:0011[facility] HermannCHEM ZVCDI1998-54-00 04:12:0038[facility] HermannCHEM JBIZV4595-20-46 04:12:000.2[facility] HermannCHEM JIKRC5677-35-38 04:12:0010.0 [facility] HermannCHEM DQROM2247-93-87 04:12:0021[facility] HermannCHEM PANEL 2016-07-28 04:12:0016[facility] HermannCHEM TZGBF3529-65-62 04:12:003.3[facility] HermannCHEM TWQFE7363-62-24 04:12:008.3[facility] HermannCHEM PUKOR0186-98-75 04:12:0034[facility] HermannCHEM IJEKX1368-89-17 04:12:006.6[facility]annCHEM WTJQT6745-28-36 04:12:42483Pgwwjwva HermannCHEM YGVZD5200-10-75 04:12:004.0 [facility]annCHE[facility] FQBMZ9325-02-39 04:12:0099[facility]annCHEM PANEL 2016-07-28 04:12:001.34[facility]annCHEM IJSOJ4264-71-93 04:12:0028[facility]annCHEM FOHUV5306-41-21 04:12:45238Jasxeurw DhpdfxhURZEHDVERR2442-79-56 04:12:000.1[facility] LwoieriBVHRGJXSCZ9114-18-99 04:12:005.2[facility] DVKBEKEXLZ5590-95-26 04:12:0022.2[facility] ZiplvkbEJVJXPHDFP8038-51-48 04:12:00 13.7[facility] EepucohJPQJENYMLI1634-62-89 04:12:000.2[facility]annHEMATOLOGY 2016-07-28 04:12:001.9[facility] HtfynngKKLZBNZYHK7822-53-73 04:12:001.2[facility] TlfjqnxPUJCQOXAZE5368-74-54 04:12:0060.8[facility] WohcmlxDTMISMXRAL2695-22-74 04:12:002.7[facility] GoypmqtHEUCCDEIRQ2456-40-48 04:12:000.6[facility] NKYASNMMGH2088-90-90 04:12:00 Test Item Value Reference Range Interpretation Comments PTT (test code = PTT) 26.5 s 22.9-35.8 [facility] WllltilTNDITGUKUB0140-48-99 04:12:00 Test Item Value Reference Range Interpretation Comments PT (test code = PT) 13.6 s 12.0-14.7 [facility] AqdkqagWPKVBFOOFM6221-94-17 04:12:001.02[facility]annHEMATOLOGY 2016-07-28 04:12:44927Tmhnxzww UrovmhvBSKKKSVXZU8835-03-12 04:12:0010.9[facility] VvskdkiSBWBEOCKFM5087-09-73 04:12:00 Test Item Value Reference Range Interpretation Comments MCH (test code = MCH) 29.9 pg 27.0-31.0 [facility] LhdlxnbLMGRLLIXNO9818-11-25 04:12:0033.2[facility]annHEMATOLOGY 2016-07-28 04:12:0090.2[facility] TfgzyrdCVDNTVNDAD4406-63-10 04:12:0013.3[facility] AkomkadPQTMNGLMTB8886-65-90 04:12:0013.4[facility] BjcacciFJVAKTVVPG3449-14-26 04:12:0040.3[facility] ZxbljzxNFHAADNMLZ2338-11-78 04:12:008.5[facility] UXAKFJEOCS7191-28-39 04:12:004.47[facility]UR[facility] NWIQC6937-86-83 04:12:00None Seen (07/27/16 10:12 PM)[facility] LKEVX8400-21-36 04:12:00None Seen (07/27/16 10:12 PM)[facility] WTKUC7448-14-99 04:12:00None Seen (07/27/16 10:12 PM)[facility] JYJVD2358-85-47 04:12:00Negative (07/27/16 10:12 PM)[facility] KEZVY7801-38-92 04:12:00Negative (07/27/16 10:12 PM)[facility] EVFXC2213-80-00 04:12:00Negative *NA*(07/27/16 10:12 PM)[facility] STOOL 2016-07-28 04:12:00Negative (07/27/16 10:12 PM)[facility] STOOL 2016-07-28 04:12:000.2[facility] LODVH6285-46-79 04:12:00 Test Item Value Reference Range Interpretation Comments UA Spec Grav (test code = UA Spec 1.010 1 Grav) [facility] MUMST3623-08-54 04:12:00Yellow *NA*(07/27/16 10:12 PM) [facility] [id number] 04:12:00Clear (07/27/16 10:12 PM) [facility] JJMOG9369-29-85 04:12:00 Test Item Value Reference Range Interpretation Comments UA pH (test code = UA pH) 7.5 1 5.0-8.0 [facility] MSMFS7291-59-54 16:03:00Negative (05/30/16 11:03 AM) [facility] GSYXO3163-44-64 16:03:00Clear (05/30/16 11:03 AM) [facility] CYZHM6215-38-75 16:03:00Negative (05/30/16 11:03 AM) [facility] LJLFR4297-11-63 16:03:000.2[facility] JIKUS1039-10-59 16:03:00 Test Item Value Reference Range Interpretation Comments UA Spec Grav (test code = UA Spec 1.015 1 Grav) [facility] TNCEH4374-85-68 16:03:00 Test Item Value Reference Range Interpretation Comments UA pH (test code = UA pH) 6.0 1 5.0-8.0 [facility] QZJQZ3323-55-42 16:03:00Negative (05/30/16 11:03 AM) [facility] KHVHM7880-78-31 16:03:00Yellow *NA*(05/30/16 11:03 AM) [facility] RENLO6777-00-57 16:03:00Negative *NA*(05/30/16 11:03 AM)[facility] QPWNI0285-90-72 16:03:00Negative (05/30/16 11:03 AM) [facility] MVNDV0328-99-81 16:03:00Moderate *ABN*(05/30/16 11:03 AM)[facility] EYSHC3601-64-95 16:03:00Negative *NA*(05/30/16 11:03 AM)[facility] SFXAQ1306-34-71 16:03:00Performed (05/30/16 11:03 AM)[facility] VXOCB4781-27-91 16:03:00None Seen (05/30/16 11:03 AM)[facility] NLRWE5037-84-59 16:03:00None Seen (05/30/16 11:03 AM)[facility] [facility] AND HDMXD6001-39-94 16:03:00None Seen (05/30/16 11:03 AM)[facility] KFHHXBG9679-08-82 15:14:00<0.02[facility] CARDIAC WCZJAMZ9687-04-20 15:14:0032[facility] JDRFFNI1399-04-21 15:14:0064[facility]annCHEM PBVWH1294-05-73 15:14:53812Qcabuagn [place] BTCDLEGJQYVE1249-08-32 15:14:009.2[facility] TqurubiISXBUGNGCQNS8291-74-77 15:14:0020[facility] NwtqbvmCLAZFMYJYOZP0657-96-33 15:14:003.8[facility] RCXJTTHWRNRS6427-92-66 15:14:000.9[facility] FlcusxqHXKAUVTPTNRX0299-77-09 15:14:0049[facility] PhtigrjFUVHLPOACSDU2313-87-29 15:14:003.6[facility] RMTGYRLDTSQD6492-12-80 15:14:0020[facility] NapduvkWZMECXTZWERR6295-87-47 15:14:00 37[facility] AlzgocuRKZMBETFQEDI0811-96-06 15:14:0014[facility] HermannELECTROLYTES 2016-05-30 15:14:000.3[facility] XxgwrcyQSFMFDPUTCNV4107-83-13 15:14:92737Yjmttajg ImnlfvwQAGZLBGFUJAY0485-34-38 15:14:001.42[facility] HermannELECTROLYTES 2016-05-30 15:14:004.2[facility] PrugnrsXCYMSBPYOBJK9294-54-88 15:14:30670Jiarygvs NbizzzxTHSEPBEYFWJL7756-05-19 15:14:008.9[facility] QxonbukWWJKSBVQKRPN4041-21-50 15:14:0035[facility] XsmwelfOJTCCBMHCQKS0775-14-94 15:14:007.4[facility] JMHSJOPDYGQN1081-19-65 15:14:0028[facility] ItoopnzWVZUYQQXJQPF2361-54-25 15:14:00 141[facility] VbjljauFCUAEHCIMG7278-14-23 15:14:000.1[facility]annHEMATOLOGY 2016-05-30 15:14:001.3[facility] KztnizvQVOUFBVAHJ9286-41-06 15:14:001.1[facility] XdbdgllCPDKBRDVKV8986-98-27 15:14:000.1[facility] AlrwgftGYDUIQYGVH5257-63-99 15:14:004.4[facility] UnelhfnCWDSCAEUNY6535-36-65 15:14:000.9[facility] GZILCVTRIY9449-65-08 15:14:0015.3[facility] DumjzuaYWRJNOXVIV1399-54-51 15:14:00 2.1[facility] KpbfmucXBSDBZMMZN8619-75-90 15:14:0018.2[facility] HermannHEMATOLOGY 2016-05-30 15:14:0063.5[facility] MldyhpaTLAHBSXVZE4863-24-93 15:14:0039.9[facility] EmfzwkwEDDUQMYOCX1922-83-98 15:14:00 Test Item Value Reference Range Interpretation Comments MCH (test code = MCH) 30.6 pg 27.0-31.0 [facility] IyeasguIPFUQMWPIN8893-95-75 15:14:0091.2[facility]annHEMATOLOGY 2016-05-30 15:14:0013.4[facility] DoqnpclKUNMMRECGX1622-52-69 15:14:004.37[facility] QykusnjEFYSVXCRYY2216-50-29 15:14:006.9[facility] DwrdktnBGMBZAOBAR3919-53-00 15:14:16055Tafumsxr ExnwazvZLGPDDWFSR7480-43-94 15:14:0010.3[facility] FJQOHZRJXI7520-56-20 15:14:0033.6[facility] SbfebejHFUOKXAWBV6087-98-54 15:14:00 13.8[facility]annCHEM QUDOQ7258-97-18 10:00:001.6[facility]annELECTROLYTES 2015-02-19 10:00:008.5[facility] ExvefvbQBZZJINYFJXQ0468-64-91 10:00:0086[facility] VeftvmmPUANTXGATCLZ9190-57-97 10:00:93962Mtuiauyl ZhtqrmhSBMWREKSSOXC6019-94-60 10:00:003.5[facility] DcdfogpWGPPUXCPYYQQ5277-17-28 10:00:008.4[facility] BQSYBQJUHRTM6759-77-48 10:00:0030[facility] LkznflgUFMTVCOTQVLQ0311-25-59 10:00:00 102[facility] BaneqgoRPZEXPQKQIRM7352-71-78 10:00:000.9[facility] DXEGJENFJEPU2403-75-39 10:00:93208Ltkghrfe CtahkqiATGXNBEYXCAE0521-47-92 10:00:009[facility] DywrcohMEXNLKQYMB9650-85-02 10:00:000.1[facility] TPSNLSSUJL1807-35-30 10:00:000.1[facility] PxewlzbIMNZROYDEF5199-53-73 10:00:000.9 [facility] BqlviksAFXONWVNUF0317-44-87 10:00:002.0[facility]annHEMATOLOGY 2015-02-19 10:00:0059.5[facility] DhanvuqEOYFTTGRDJ5296-99-98 10:00:0025.6[facility] EyaiqhnXHKPGCGYOA8858-31-42 10:00:001.6[facility] UxvhleyTKXGOKLUVR2006-53-12 10:00:001.2[facility] AunvywoKRDSERNDZG5533-70-24 10:00:004.6[facility] XBOZGHEMKF0892-64-21 10:00:0012.1[facility] IgfmlbsUDMTJNDRDU7251-62-71 10:00:00 Test Item Value Reference Range Interpretation Comments MCH (test code = MCH) 30.5 pg 27.0-31.0 [facility] UyvndedLLWPSVLEAH9332-92-38 10:00:0034.0[facility]annHEMATOLOGY 2015-02-19 10:00:0013.3[facility] WojfvprWDEGGDFONX9189-44-97 10:00:0031.0[facility] UtbefezPSEDEMONEU5815-79-82 10:00:0089.6[facility] HxetqzvDMUZZACPWS4912-35-98 10:00:009.4[facility] AkvwqqbNOXWBNXEOE5997-27-83 10:00:48764Elrnfnag [facility] FMPMBPXYHX3244-04-26 10:00:0010.5[facility] ScmjnesJSFRQIZBLP8983-36-22 10:00:00 7.7[facility] UoebmhsJTOCIHPRTU2517-17-43 10:00:003.46[facility]annCHEM PANEL 2015-02-18 14:44:001.4[facility] VkzcbjfZQFCWMKCBPRE4702-06-58 14:44:05485Oczsjvww HermannCHEM DFCPT0986-21-95 09:05:0011[facility]annCHEM XUAIW7526-62-10 09:05:001.0[facility]annCHEM JDYFI2521-12-41 09:05:003.3[facility] HermannCHEM GOQMU2461-76-27 09:05:009.5[facility]annCHEM LNFXJ0093-60-52 09:05:0076 [facility]annCHEM OQQAY5875-75-93 09:05:20007Smmbmqeh HermannCHEM PANEL 2015-02-18 09:05:000.7[facility] HermannCHEM CJIDA3447-98-25 09:05:0031[facility]annCHEM PMGKE6489-45-52 09:05:0025[facility]annCHEM PLCBB2580-90-07 09:05:0032[facility]annCHEM XWSVO3113-84-49 09:05:006.5[facility]annCHEM HZLLF1194-29-69 09:05:003.5[facility]annCHEM CQYMT2581-86-25 09:05:003.2 [facility]annCHE[facility] ZGVAH2496-01-17 09:05:0028[facility]annCHEM PANEL 2015-02-18 09:05:0095[facility]annCHEM YZJGM2832-44-25 09:05:008.2[facility]annCHEM FNUPW8766-36-18 09:05:35548Egxeamlj HermannCHEM SXYKI7099-67-39 09:05:001.0[facility] HermannCHEM PFYOK7888-95-38 09:05:0011[facility] LARTSYKYWGFI2404-25-31 09:05:0010.5[facility] BaavaakEWNXHMMIGAET1772-87-60 09:05:008.4[facility] JtvttyhCPSEIBHJCOSB9649-26-70 09:05:0027[facility] PVSMOIWSFXXC9833-42-43 09:05:0096[facility] FvmrdtlVCTJFCADQSAZ1422-62-90 09:05:00 76[facility] DaqfpsrDDGIAXAOZORU2810-93-51 09:05:003.5[facility] HermannELECTROLYTES 2015-02-18 09:05:02346Lbbnusmn UbwlihoJDLVMVOPQHBP4320-35-48 09:05:001.0[facility] PctcexgDRYXXVJOBGWA4958-35-90 09:05:0011[facility] HoebpfgVBAJFVYBYAJL7491-50-26 09:05:39970Cqvfowrg MejbdhvWVORVBNVSF7316-86-86 09:05:0012.7[facility] KLDRJJUTWY4121-27-24 09:05:0074.1[facility] VavewpcMKORUADSMO5841-89-64 09:05:00 12.6[facility] PiqifeeWJHDMETHRH2333-79-27 09:05:001.6[facility] HermannHEMATOLOGY 2015-02-18 09:05:001.6[facility] GdhxkjgSZZYHDUZLS1258-33-35 09:05:000.2[facility] AxrllpiORZOMAVIYW1866-45-81 09:05:000.4[facility] MaymbskNDFYMBYTJN2428-35-56 09:05:009.6[facility] MuvqsmjJTWTKONSSQ5434-24-14 09:05:000.1[facility] NKFVMHBABB1764-12-92 09:05:003.97[facility] ItaihdrVKDOFPXQSG9942-23-29 09:05:00 13.0[facility] NhzcnuuQXNXKRIYSZ8250-94-26 09:05:009.7[facility]annHEMATOLOGY 2015-02-18 09:05:0013.1[facility] UlykgxaDLWLQQKEWD9604-40-53 09:05:31130Hciywrlp QawlsfcCQGCDDVZZR1893-85-87 09:05:0034.8[facility] HhmshgfCKLYQQFEYD7201-46-40 09:05:0087.8[facility] XiardvuVBIXPKTQKN3947-59-13 09:05:0011.9[facility] WUHOKQXKYP7181-96-87 09:05:00 Test Item Value Reference Range Interpretation Comments MCH (test code = MCH) 30.1 pg 27.0-31.0 [facility] NgdtsgqUPCAAHZXMQ7002-32-87 09:05:0034.3[facility] HermannCHEM PANEL 2015-02-18 05:11:001.1[facility] EonbqtwGGMUKR0725-13-26 05:11:0014[facility] MjkwwdbXJIPEO0499-98-64 05:11:0025[facility] TrzsthqTBMJCB1022-06-37 05:11:0091 [facility] BxktqhrBOEAQN8547-75-61 05:11:001.75[facility] ShsmdrhVWHGRP9980-42-66 05:11:0052[facility] UimzocxGENCKK5936-88-07 05:11:0071[facility] HermannTHYROID WLYUD8491-74-42 05:11:001.790[facility] HermannBACTERIAL - GZRBOSYX2624-29-57 00:29:00Negative 16(02/17/15 7:29 PM)[facility]annCHEM VPYPW8787-18-72 00:28:001.0[facility] FnxemibAUHREDSWZD0550-53-41 00:28:20068Pwvsfjva [facility] QFKYCQTRYD2651-55-01 00:28:00 Test Item Value Reference Range Interpretation Comments PTT (test code = PTT) 25.3 s 22.9-35.8 [facility]DR[facility] DHLUWB9451-48-84 21:40:00See Note 8(02/17/15 4:40 PM) [facility] CUHLMO3359-84-91 21:40:00Negative *NA*(02/17/15 4:40 PM) [facility] TVMOYJ7095-08-22 21:40:00Negative *NA*(02/17/15 4:40 PM) [facility] MLUGFV5499-71-61 21:40:00Negative *NA*(02/17/15 4:40 PM) [facility] MXWNYU1876-43-95 21:40:00Positive *ABN*(02/17/15 4:40 PM) [facility] SRIZQV5083-52-94 21:40:00Negative *NA*(02/17/15 4:40 PM) [facility] DDZSNP3135-22-79 21:40:00Negative *NA*(02/17/15 4:40 PM) [facility] BWOEID9830-33-37 21:40:00Negative *NA*(02/17/15 4:40 PM) [facility] QQJWU9222-50-30 21:40:00Negative (02/17/15 4:40 PM) [facility] ULIMN2744-52-91 21:40:00Negative *NA*(02/17/15 4:40 PM) [facility] MWTKB9727-86-72 21:40:00Yellow *NA*(02/17/15 4:40 PM) [facility] GUOIL7285-67-73 21:40:00 Test Item Value Reference Range Interpretation Comments UA Spec Grav (test code = UA Spec 1.010 1 Grav) [facility] KLGGP1694-48-58 21:40:00Clear (02/17/15 4:40 PM) [facility] FZWQH2683-28-67 21:40:00 Test Item Value Reference Range Interpretation Comments UA pH (test code = UA pH) 6.0 1 5.0-8.0 [facility] FLNEQ1264-71-72 21:40:00Negative (02/17/15 4:40 PM) [facility] AWRLK6284-39-36 21:40:00Negative (02/17/15 4:40 PM) [facility] HTIKR9475-49-26 21:40:000.2[facility] HermannCHEM PANEL 2015-02-17 21:12:95438Uubtakyj HermannURINE NFUW1849-63-48 20:00:0053[facility] EITK8327-06-38 20:00:23044Wgfhzinn [facility]annUR[facility] TOXE6130-51-08 20:00:0036.2[facility] NESD1193-83-79 20:00:0072[facility] CARDIAC SDABINU3372-18-02 16:09:007.2[facility]annCARDIAC SHLFJDZ0095-22-34 16:09:0092[facility]annCARDIAC VRKDAJT2491-42-79 16:09:81554Nhociwco [place] CARDIAC NMZIMKL2026-93-54 16:09:001.5[facility]annCARDIAC VXGQYLF1049-95-99 16:09:000.11[facility]annCHEM RHGYC7245-35-20 16:09:000.7[facility] HermannCHEM DLYSD0482-66-51 16:09:0028[facility]annCHEM ALULS7036-44-73 16:09:003.5 [facility]annCHEM IUNRV5173-55-82 16:09:007.3[facility]annCHEM PANEL 2015-02-17 16:09:003.8[facility] HermannCHEM SRUPO2310-13-84 16:09:0038[facility]annCHEM ZQIOF5159-29-73 16:09:0024[facility]annCHEM IBLGF2677-64-24 16:09:001.1[facility]annCHEM SPYCP2070-05-20 16:09:0011[facility] EVCPUQPTJA7955-22-70 15:08:000.1[facility] EprizwaTFSXZQETOX9195-21-16 15:08:00 10.7[facility] SeglwdgBIWAAYTJSE8724-20-67 15:08:001.2[facility]annHEMATOLOGY 2015-02-17 15:08:001.5[facility] ButfxbeIUQLAPLGGR2405-11-43 15:08:0079.6[facility] WjvfzbtOQIDOIPVOD4749-08-55 15:08:008.8[facility] IxyyfpeHFSFWURUUN3743-46-50 15:08:0010.8[facility] JwrtjosIKDCJXIMTP0580-67-90 15:08:000.5[facility] XJSQNDPBBG1764-08-07 15:08:000.3[facility] GzsgoutULLSXIWYWL6130-94-90 15:08:00 Test Item Value Reference Range Interpretation Comments PT (test code = PT) 13.3 s 12.0-14.7 [facility] PvqtlkdVPPXLMYPPG7217-60-07 15:08:00 Test Item Value Reference Range Interpretation Comments PTT (test code = PTT) 26.3 s 22.9-35.8 [facility] DuixtjlNWOFOQGAHS7249-41-47 15:08:001.01[facility]annHEMATOLOGY 2015-02-17 15:08:0033.5[facility] LvyfignGLCJWVQJLM4840-50-05 15:08:0013.0[facility] BrikxrpOTNGLPATBO6608-61-77 15:08:0039.1[facility] AayfjjuDNGMKPZOHN2231-00-00 15:08:0013.5[facility] AfwozvoJOKYLNFCMM7601-24-83 15:08:0090.1[facility] GCYSKZLKGR2888-26-74 15:08:00 Test Item Value Reference Range Interpretation Comments MCH (test code = MCH) 30.2 pg 27.0-31.0 [facility] IyqhthoQDCWCAFOPA3877-36-84 15:08:009.5[facility]annHEMATOLOGY 2015-02-17 15:08:004.34[facility] JcneysuRJGSBYRJEZ0108-04-62 15:08:0013.1[facility] IthgfeiTFUPZVAAXP4818-88-87 15:08:00<0.003[facility] HermannTOXICOLOGY 2015-02-17 15:08:00<3[facility] AND RVIBK6062-06-17 15:08:00 Negative *NA*(02/17/15 10:08 AM)[facility] KEUKF7543-24-79 15:08:00Negative *NA*(02/17/15 10:08 AM)[facility] QXUAJ0070-86-09 15:08:000.2[facility] HTTTQ7910-21-96 15:08:00Negative (02/17/15 10:08 AM)[facility] NZDCR4384-16-75 15:08:00Negative (02/17/15 10:08 AM)[facility] HNSLE6462-24-91 15:08:00Negative (02/17/15 10:08 AM)[facility] QUSTO1660-14-06 15:08:00<=1.005 *NA*(02/17/15 10:08 AM)[facility] PSSCC3150-82-73 15:08:00Negative (02/17/15 10:08 AM)[facility] UZNOZ0173-09-43 15:08:00 Test Item Value Reference Range Interpretation Comments UA pH (test code = UA pH) 7.0 1 5.0-8.0 [facility] EPGQF5961-23-95 15:08:00Yellow *NA*(02/17/15 10:08 AM) [facility] HQFZS4723-29-22 15:08:00Clear (02/17/15 10:08 AM) [facility] KSOZV8416-84-13 15:08:00None Seen (02/17/15 10:08 AM) [facility] CUJHY3189-55-09 15:08:00None Seen (02/17/15 10:08 AM) [facility] RMKZW6144-78-83 15:08:00None Seen (02/17/15 10:08 AM) [facility] BROQV7663-84-07 15:08:00None Seen (02/17/15 10:08 AM) [facility]annCHEM EHMHU9212-63-72 15:55:0068[facility]annCHEM PANEL 2014-06-10 15:55:003.3[facility] HermannCHEM IQJOQ9598-78-25 15:55:001.0[facility]annCHEM HZTWN6857-68-29 15:55:0043[facility]annCHEM TBIQL6630-90-74 15:55:000.3[facility]annCHEM PWTQC0050-62-53 15:55:0017[facility]annCHEM MEUEV0444-12-16 15:55:0010.8[facility]annCHEM ZSIRH6710-05-26 15:55:009.3 [facility]annCHEM ZMQAR4786-62-59 15:55:006.7[facility]annCHEM PANEL 2014-06-10 15:55:003.4[facility]annCHEM HXPSI3126-01-14 15:55:0022[facility]annCHEM GETOC7181-50-71 15:55:0015[facility]annCHEM OIWPA9948-23-97 15:55:0036[facility]annCHEM NLEBR5428-82-12 15:55:09645Gazxaucn HermannCHEM CIKRG9992-90-15 15:55:0019[facility]annCHEM IWJCX4324-44-54 15:55:51054 [facility]annCHEM ZFYHI2977-81-78 15:55:001.1[facility]annCHEM PANEL 2014-06-10 15:55:004.8[facility] HermannCHEM DALAL6446-60-28 15:55:0095[facility] ErzhxzgGZFWJODVXF2487-76-45 15:55:00 Test Item Value Reference Range Interpretation Comments MCH (test code = MCH) 31.6 pg 27.0-31.0 [facility] HlsdbttMMRCKFKTDO0469-27-73 15:55:0034.5[facility]annHEMATOLOGY 2014-06-10 15:55:0091.6[facility] BvojurbZFSEARFAAQ1209-19-10 15:55:0041.8[facility] XnymqvgAPWVCFIWBP3586-92-80 15:55:60355Abatzasn WcpnzyhWCFCRGTULD4115-95-19 15:55:0010.2[facility] AfhgceyOCRNGVSSPE4347-97-06 15:55:0014.1[facility] DMVUSTTFTB5924-40-63 15:55:004.56[facility] AzsgwxrFUKWRRBIIY4039-59-53 15:55:00 14.4[facility] XgvwncnXGVDLLOKFV4984-59-28 15:55:0014.8[facility] HermannCARDIAC HSOZFGV0313-43-87 14:28:0067[facility]annCARDIAC BJXHYPO5370-49-54 14:28:00 <0.02[facility]annCARDIAC VDSFWCU3629-83-69 09:10:0013[facility] CARDIAC VWJUDQM0100-23-56 09:10:0065[facility]annCARDIAC GPAOAPW1820-10-96 09:10:00<0.02[facility] HermannCHEM DOSFT7783-36-17 09:10:0076[facility] CHEM TUANT4740-51-78 09:10:001.0[facility] ZdrdrmqSSTAYGLPJL3960-57-23 09:10:00 Test Item Value Reference Range Interpretation Comments PTT (test code = PTT) 29.8 s 22.9-35.8 [facility] XyttwzfGETTHXTBTJ6137-63-86 09:10:17041Jquimawx [facility]URINE AND STOOL 2014-06-09 02:15:29Yellow *NA*(06/08/14 9:15 PM)[facility] STOOL 2014-06-09 02:15:29Negative (06/08/14 9:15 PM)[facility] STOOL 2014-06-09 02:15:29Negative (06/08/14 9:15 PM)[facility] STOOL 2014-06-09 02:15:290.2[facility]UR[facility] AND GDKCM5354-64-34 02:15:29Negative (06/08/14 9:15 PM)[facility] NWJGT4074-15-63 02:15:29Trace *ABN*(06/08/14 9:15 PM)[facility] GUATH6273-92-45 02:15:29 Test Item Value Reference Range Interpretation Comments UA pH (test code = UA pH) 6.0 1 5.0-8.0 [facility] BRDNK1934-27-93 02:15:29>=1.030 *ABN*(06/08/14 9:15 PM)[facility] IHIMP3625-71-07 02:15:29Negative *NA*(06/08/14 9:15 PM)[facility] AND PDKQD9675-96-63 02:15:29Negative *NA*(06/08/14 9:15 PM)[facility] OVNYF1189-91-17 02:15:29Clear (06/08/14 9:15 PM) [facility] PQOKX6554-98-13 02:15:29Negative (06/08/14 9:15 PM) [facility]annCARDIAC RBQARHH5065-12-47 01:45:141.3[facility]annCARDIAC LVFKFAA7223-43-42 01:45:1493[facility]annCARDIAC FDMRBFA9365-27-92 01:45:14 <0.02[facility]annCARDIAC MXFAMCJ9226-74-96 01:45:1418[facility] CARDIAC ZJGTGPD9146-57-41 01:45:141.4[facility] HermannCHEM PMHIJ9429-54-63 01:45:1468[facility] YeqsusfMYINRDSQFM9835-78-13 01:25:190.90[facility] GTBYFGJQNH1070-00-77 01:25:19 Test Item Value Reference Range Interpretation Comments PTT (test code = PTT) 28.6 s 22.9-35.8 [facility] WecvtieYSWLGIHLIH0343-07-30 01:25:19 Test Item Value Reference Range Interpretation Comments PT (test code = PT) 12.1 s 12.0-14.7 [facility]annCHEM IAUYF8152-02-81 01:25:0029[facility] HermannCHEM PANEL 2014-06-09 01:25:000.9[facility] HermannCHEM LAVZC2430-87-57 01:25:0053[facility] HermannCHEM NMOUX6330-96-75 01:25:0024[facility] HermannCHEM OOKUQ3369-99-61 01:25:000.5[facility] HermannCHEM OJUCO3507-23-25 01:25:0018[facility]annCHEM UQVRZ0675-79-12 01:25:004.0[facility] HermannCHEM BCTUX9699-87-70 01:25:007.5 [facility]annCHEM ADNSH8059-53-16 01:25:003.5[facility] HermannCHEM PANEL 2014-06-09 01:25:004.5[facility] HermannCHEM YEEWV2165-81-92 01:25:0041[facility] HermannCHEM IZUBY1078-01-58 01:25:0096[facility] HermannCHEM WVCXK2742-35-71 01:25:009.2[facility] HermannCHEM ICAAT3005-62-77 01:25:006.5[facility] HermannCHEM YTOWC6929-85-13 01:25:52727Zaqwhlou HermannCHEM LCRRB7937-19-97 01:25:001.1 [facility]annCHEM MAUNP7467-19-28 01:25:0020[facility] HermannCHEM PANEL 2014-06-09 01:25:17939Pqteijof UtxaawwHBVVXPFBLF0535-34-67 01:25:0090.8[facility] KgmrpnlWKWZIMJVUA0577-08-19 01:25:0045.4[facility] ElgyoioTBUYDWESBB3697-12-82 01:25:00 Test Item Value Reference Range Interpretation Comments MCH (test code = MCH) 31.6 pg 27.0-31.0 [facility] VcahikmBRENNRWAZF6715-36-40 01:25:005.00[facility] HermannHEMATOLOGY 2014-06-09 01:25:0015.8[facility] XklakcxHXOOUMYAEV3598-05-46 01:25:008.5[facility] RzcjrnkLNYKKDFJWA8255-43-58 01:25:0034.8[facility] QhherdbBRQKJJZHRR6524-34-20 01:25:74003Fhwtzuze LckcqygDRVYIISFHJ2222-01-81 01:25:0014.1[facility] IGBACVEIMM2554-95-59 01:25:009.6[facility] HmiwmwhOAWEKOLWMB7817-59-62 01:25:000.3 [facility] BanicleWGIYPYXFPR7723-75-16 01:25:000.1[facility] HermannHEMATOLOGY 2014-06-09 01:25:001.1[facility] CeoceitIGXKVNUHGC6578-59-40 01:25:0062.9[facility] KmikdpzPXAGNYMPIN2957-27-17 01:25:001.7[facility] LdfauzjCKVHSGKGDP4140-57-91 01:25:003.0[facility] OisntfnQCPJWKRMMN4506-57-40 01:25:001.3[facility] KGLDRKCBQI9294-62-40 01:25:0013.0[facility] XrtmuedRVWNGVCIJW0379-25-54 01:25:00 19.8[facility] VrpfvcuQSQRTANWQR4743-49-96 01:25:005.3[facility]
[2020-03-24 14:37] LABS: Arterial Blood Carboxyhemoglob 1.3 % (0-1.5); Blood Gas Oxyhemoglobin 96.9 % (94-97); Blood O2 Saturation 98.9 % (92-98.5)
--- NOTE | 2020-03-24 14:47 | EDPHYS ---
Physician Documentation [facility] Name: Michael Duncan Age: 74 yrs Sex: Male : 1945 Arrival Date: 03/24/2020 Time: 13:46 Bed 13 Private MD: ED Physician Chalino Vera HPI: 03/24 14:05 This 74 yrs old Male presents to ER via EMS with complaints of Shortness Of kdr Breath, COVID +. 14:05 The patient has shortness of breath at rest. Onset: The symptoms/episode began/occurred kdr just prior to arrival, today. Duration: The symptoms are continuous. The patient's shortness of breath has no apparent modifying factors. Associated signs and symptoms: Pertinent positives: decreased responsiveness. Severity of symptoms: At their worst the symptoms were mild in the emergency department the symptoms are unchanged. It is unknown whether or not the patient has recently seen a physician. The patient is known COVID positive. He was noted to have sat of 40% at NH. EMS noted 80% on RA. The patient is noted to be Full Code. Historical: - Allergies: 13:56 caffiene; hb 13:56 Codeine; hb - Home Meds: 13:56 albuterol sulfate 2.5 mg /3 mL (0.083 %) Inhl nebu 3 times per day [Active]; amiodarone hb 200 mg Oral tab 1 tab once daily [Active]; amlodipine 5 mg tab 1 tab once daily [Active]; atorvastatin 10 mg Oral tab 1 tab nightly [Active]; Betaxolol Oral [Active]; brimonidine ophthalmic [Active]; buspirone 10 mg Oral tab 1 tab 3 times per day [Active]; carvedilol Oral [Active]; clonidine HCl 0.1 mg Oral tab 1 tab 2 times per day [Active]; divalproex 500 mg Oral Tb24 1 tab once daily [Active]; furosemide 40 mg Oral tab 1 tab once daily [Active]; Januvia 100 mg Oral tab 1 tab once daily [Active]; levothyroxine 75 mcg tab 1 tab once daily [Active]; lisinopril 20 mg Oral tab 1 tab once daily [Active]; metoprolol tartrate 25 mg Oral tab three times a day [Active]; Risperdal 0.25 mg Oral tab 3 tabs nightly [Active]; Spiriva with HandiHaler 18 mcg inhalation CpDv 1 cap once daily [Active]; Symbicort 160-4.5 mcg/actuation inhalation HFAA 2 puffs 2 times per day [Active]; trazodone 50 mg Oral tab nightly [Active]; Tresiba FlexTouch U-100 100 unit/mL (3 mL) subcutaneous inpn 70 unit nightly [Active]; Tresiba FlexTouch U-100 100 unit/mL (3 mL) subcutaneous inpn [Active]; venlafaxine 75 mg Oral cp24 1 cap once daily [Active]; Vitamin C Oral [Active]; Vitamin D Oral [Active]; Xarelto 20 mg Oral tab 1 tab once daily [Active]; - PMHx: 13:56 Bipolar disorder; COPD; Diabetes - NIDDM; High Cholesterol; Hypertension; hb - Immunization history:: Adult Immunizations. - Social history:: Smoking status: unknown. ROS: 14:05 Constitutional: unable to obtain - due to AMS kdr Exam: 14:05 Constitutional: This is a well developed, well nourished patient who is obtunded and kdr poorly responsive. has labored breathing Head/Face: Normocephalic, atraumatic. Eyes: Pupils equal round and reactive to light, extra-ocular motions intact. Lids and lashes normal. Conjunctiva and sclera are non-icteric and not injected. Cornea within normal limits. Periorbital areas with no swelling, redness, or edema. Neck: Trachea midline, no thyromegaly or masses palpated, and no cervical lymphadenopathy. Supple, full range of motion without nuchal rigidity, or vertebral point tenderness. No Meningismus. Chest/axilla: Normal chest wall appearance and motion. Nontender with no deformity. No lesions are appreciated. Cardiovascular: Regular rate and rhythm with a normal S1 and S2. No gallops, murmurs, or rubs. Normal PMI, no JVD. No pulse deficits. Abdomen/GI: Obese Soft, non-tender, with normal bowel sounds. No distension or tympany. No guarding or rebound. No evidence of tenderness throughout. Skin: Warm, dry with normal turgor. Normal color with no rashes, no lesions, and no evidence of cellulitis. MS/ Extremity: Pulses equal, no cyanosis. Neurovascular intact. Full, normal range of motion. 14:05 Neuro: The patient is poorly arousable except to vigorous stimulation. Vital Signs: 14:27 BP 135 / 53; Pulse 56; Resp 22; Pulse Ox 98% on Non-rebreather mask; dh4 15:30 BP 142 / 61; Pulse 51; Resp 19; Pulse Ox 99% on BiPAP; Pain 0/10; ks7 15:45 BP 158 / 148; Pulse 56; Resp 18; Pulse Ox 99% on BiPAP; Pain 0/10; ks7 16:10 BP 194 / 173; Pulse 51; Resp 19; Pulse Ox 99% on BiPAP; Pain 0/10; ks7 16:56 BP 135 / 57; Pulse 52; Resp 20; Temp 97.9(TE); Pulse Ox 99% on BiPAP; Pain 0/10; ks7 17:40 BP 133 / 51; Pulse 56; Resp 20; Pulse Ox 95% on BiPAP; Pain 0/10; ks7 18:00 BP 130 / 43; Pulse 49; Resp 20; Pulse Ox 98% on BiPAP; Pain 0/10; ks7 18:30 BP 115 / 39; Pulse 48; Resp 20; Pulse Ox 98% on BiPAP; Pain 0/10; ks7 19:00 BP 117 / ???; Pulse 47; Resp 24; Pulse Ox 95% on BiPAP; Pain 0/10; ks7 19:27 Pulse Ox 95% on Mask: BiPAP; Pain 0/10; ks7 19:28 Pain 0/10; ks7 19:30 BP 133 / 57; Pulse 57; Resp 20; Pulse Ox 99% on BiPAP; Pain 0/10; ks7 20:00 BP 142 / 55; Pulse 56; Resp 20; Pulse Ox 99% on BiPAP; Pain 0/10; ks7 20:30 BP 122 / 48; Pulse 47; Resp 20; Pulse Ox 99% on BiPAP; Pain 0/10; ks7 20:53 Pain 0/10; ks7 20:53 Pain 0/10; ks7 21:00 BP 119 / 47; Pulse 45; Resp 20; Pulse Ox 98% on BiPAP; Pain 0/10; ks7 21:30 BP 144 / 80; Pulse 44; Resp 20; Pulse Ox 98% on BiPAP; Pain 0/10; ks7 22:00 BP 100 / 36; Pulse 58; Resp 20; Pulse Ox 99% on BiPAP; Pain 0/10; ks7 22:30 BP 122 / 89; Pulse 60; Resp 22; Pulse Ox 99% on BiPAP; Pain 0/10; ks7 22:58 BP 133 / 92; Pulse 56; Resp 22; Temp 97.9(TE); Pulse Ox 100% on BiPAP; Pain 0/10; ks7 03/25 00:21 BP 132 / 71; Pulse 58; Resp 20; Temp 97.7(TE); Pulse Ox 97% on 3 lpm NC; Pain 5/10; ks7 01:37 BP 128 / 60; Pulse 57; Resp 19; Pulse Ox 97% on 3 lpm NC; ea MDM: 03/24 14:05 Data reviewed: vital signs, nurses notes, lab test result(s), radiologic studies. kdr Counseling: I had a detailed discussion with the patient and/or guardian regarding: the historical points, exam findings, and any diagnostic results supporting the discharge/admit diagnosis, lab results, radiology results, the need for further work-up and treatment in the hospital. 14:46 Patient medically screened. kdr 03/24 13:51 Order name: Blood Culture Adult (2) kdr 03/24 13:51 Order name: BMP kdr 03/24 13:51 Order name: C-Reactive Protein kdr 03/24 13:51 Order name: CBC with Diff kdr 03/24 13:51 Order name: D-Dimer kdr 03/24 13:51 Order name: Ferritin kdr 03/24 13:51 Order name: Flu kdr 03/24 13:51 Order name: Lactate kdr 03/24 13:51 Order name: LFT's kdr 03/24 13:51 Order name: Lipase kdr 03/24 13:51 Order name: Procalcitonin kdr 03/24 13:51 Order name: PT-INR kdr 03/24 13:51 Order name: Ptt, Activated kdr 03/24 13:51 Order name: Strep; Complete Time: 15:47 kdr 03/24 13:51 Order name: Troponin (emerg Dept Use Only) kdr 03/24 13:51 Order name: Urine Microscopic Only kdr 03/24 13:51 Order name: CXR XRAY; Complete Time: 15:47 kdr 03/24 13:51 Order name: EKG; Complete Time: 13:52 [facility] 03/24 13:51 Order name: Cardiac monitoring; Complete Time: 14:56 kdr 03/24 13:51 Order name: Document PUI#; Complete Time: 14:56 [facility] 03/24 13:53 Order name: D-Dimer [facility] 03/24 14:04 Order name: ABG; Complete Time: 15:23 [facility] 03/24 14:47 Order name: BIPAP [facility] 03/24 15:48 Order name: Throat Culture [facility] 03/24 17:43 Order name: ABG Arterial Blood Gas [facility] 03/24 17:44 Order name: Manual Differential [facility] 03/24 13:51 Order name: Droplet/Contact Precautions; Complete Time: 14:56 [facility] 03/24 13:51 Order name: EKG - Nurse/Tech; Complete Time: 16:58 [facility] 03/24 13:51 Order name: Merida; Complete Time: 22:37 kdr 03/24 13:51 Order name: IV Start; Complete Time: 14:55 [facility] 03/24 13:51 Order name: Labs collected and sent; Complete Time: 14:55 [facility] 03/24 13:51 Order name: Notify [facility] [phone]/ ; Complete Time: 20:55 [facility] 03/24 13:51 Order name: O2 Per Protocol; Complete Time: 14:55 [facility] 03/24 13:51 Order name: O2 Sat Monitoring; Complete Time: 14:55 [facility] 03/24 13:51 Order name: Urine Dipstick-Ancillary (obtain specimen); Complete Time: 14:55 kdr Administered Medications: Discontinued: Rocephin - (cefTRIAXone) 1 grams IVPB once over 30 mins; (mix in 50 mL NS) 16:22 Drug: Decadron - Dexamethasone 6 mg Route: IVP; Site: right forearm; ks7 19:27 Follow up: Pulse Ox 95% Mask: BiPAP; Pain 0/10 Adult ks7 20:53 Follow up: Pain 0/10 Adult ks7 16:24 Drug: Rocephin - (cefTRIAXone) 1 grams Route: IVPB; Infused Over: 30 mins; Site: right ks7 forearm; 19:28 Follow up: Pain 0/10 Adult ks7 20:53 Follow up: Pain 0/10 Adult ks7 16:26 Not Given (pt on bipap, RT to administer. pt covid positive. ): Albuterol - atroVENT ks7 (3:1) (2.5 mg - 0.5 mg) 3 ml Nebulizer once Disposition: 03/24/20 14:46 Hospitalization ordered by Rashid Garcia for Inpatient Admission. Preliminary diagnosis is Pneumonia, unspecified organism - Castro Virus. - Bed requested for Intensive Care Unit. - Status is Inpatient Admission. ea - Condition is Serious. - Problem is new. - Symptoms have worsened. Signatures: Dispatcher [employer] EDMS Chalino Vera MD MD kdr Boris Villatoro, SMOOTH PLATER-C SMOOTH PLATER-Cla1 Ashli Michael, RN RN cg Nirali Duran, RN RN Karina Mcgovern RN RN ea Songcuan, Kathleen, RN RN ks7 Corrections: (The following items were deleted from the chart) 03/25 00:50 03/24 14:46 Hospitalization Ordered by Rashid Garcia MD for Inpatient Admission. cg Preliminary diagnosis is Pneumonia, unspecified organism - Castro Virus. Bed requested for Telemetry/MedSurg (Inpatient). Status is Inpatient Admission. Condition is Serious. Problem is new. Symptoms have worsened. kdr 03/25 01:38 00:50 03/24/2020 14:46 Hospitalization Ordered by Rashid Garcia MD for Inpatient ea Admission. Preliminary diagnosis is Pneumonia, unspecified organism - Castro Virus. Bed requested for Intensive Care Unit. Status is Inpatient Admission. Condition is Serious. Problem is new. Symptoms have worsened.
--- NOTE | 2020-03-24 14:47 | ER ---
Nurse's Notes [facility] Name: Michael Duncan Age: 74 yrs Sex: Male : 1945 Arrival Date: 03/24/2020 Time: 13:46 Bed 13 Private MD: Diagnosis: Pneumonia, unspecified organism-Castro Virus Presentation: 03/24 13:48 Chief complaint: EMS states: SOB since this morning. SpO2 40s on 2LNC, improved to 80s hb on NRB. COVID +. Hx of COPD. Coronavirus screen: Patient reports shortness of breath or difficulty breathing. Patient instructed to continue to wear a mask when interacting with others. Patient moved to private room, placed in contact and droplet isolation with eye protection until further assessment. Per [place] staff, pt is COVID + Prior COVID test. Ebola Screen: No symptoms or risks identified at this time. Risk Assessment: Do you want to hurt yourself or someone else? Patient reports no desire to harm self or others. Onset of symptoms was March 24, 2020. 13:48 Method Of Arrival: EMS: [facility] 13:48 Acuity: SHAZIA 2 hb Triage Assessment: 14:46 General: Appears distressed, ill, obese, Behavior is listless. Pain: Unable to use pain ks7 scale. Patient is disoriented. Patient is unresponsive. Respiratory: Reports pt reported sob and difficulty breathing to staff at [facility] this am Airway is patent Respiratory effort is labored, shallow, Respiratory pattern is hypoventilation tachypnea Breath sounds are diminished bilaterally. in right upper lobe, left upper lobe, right middle lobe, left lower lobe and right lower lobe Onset: The symptoms/episode began/occurred this morning, the patient has severe shortness of breath. Historical: - Allergies: 13:56 caffiene; hb 13:56 Codeine; hb - Home Meds: 13:56 albuterol sulfate 2.5 mg /3 mL (0.083 %) Inhl nebu 3 times per day [Active]; amiodarone hb 200 mg Oral tab 1 tab once daily [Active]; amlodipine 5 mg tab 1 tab once daily [Active]; atorvastatin 10 mg Oral tab 1 tab nightly [Active]; Betaxolol Oral [Active]; brimonidine ophthalmic [Active]; buspirone 10 mg Oral tab 1 tab 3 times per day [Active]; carvedilol Oral [Active]; clonidine HCl 0.1 mg Oral tab 1 tab 2 times per day [Active]; divalproex 500 mg Oral Tb24 1 tab once daily [Active]; furosemide 40 mg Oral tab 1 tab once daily [Active]; Januvia 100 mg Oral tab 1 tab once daily [Active]; levothyroxine 75 mcg tab 1 tab once daily [Active]; lisinopril 20 mg Oral tab 1 tab once daily [Active]; metoprolol tartrate 25 mg Oral tab three times a day [Active]; Risperdal 0.25 mg Oral tab 3 tabs nightly [Active]; Spiriva with HandiHaler 18 mcg inhalation CpDv 1 cap once daily [Active]; Symbicort 160-4.5 mcg/actuation inhalation HFAA 2 puffs 2 times per day [Active]; trazodone 50 mg Oral tab nightly [Active]; Tresiba FlexTouch U-100 100 unit/mL (3 mL) subcutaneous inpn 70 unit nightly [Active]; Tresiba FlexTouch U-100 100 unit/mL (3 mL) subcutaneous inpn [Active]; venlafaxine 75 mg Oral cp24 1 cap once daily [Active]; Vitamin C Oral [Active]; Vitamin D Oral [Active]; Xarelto 20 mg Oral tab 1 tab once daily [Active]; - PMHx: 13:56 Bipolar disorder; COPD; Diabetes - NIDDM; High Cholesterol; Hypertension; hb - Immunization history:: Adult Immunizations. - Social history:: Smoking status: unknown. Screenin:49 Abuse screen: Denies threats or abuse. Nutritional screening: No deficits noted. ks7 Tuberculosis screening: No symptoms or risk factors identified. Fall Risk No fall in past 12 months (0 pts). Secondary diagnosis (15 points) impaired mobility, IV access (20 points). Ambulatory Aid- None/Bed Rest/Nurse Assist (0 pts). Gait- Weak (10 pts.). Mental Status- Overestimates/Forgets Limitations (15 pts.). Total Carpio Fall Scale indicates High Risk Score (45 or more points). Fall prevention measures have been instituted. Side Rails Up X 2. Assessment: 14:51 Reassessment: Patient states symptoms have improved. Pt able to wake up open eyes and ks7 grunt to questions after 15L NRB since admit to hospital. Trial off 02, pt desat to 70% sp02 after 5 min. pt placed back on 15L NRB. sp02 100%. Cardiovascular: Rhythm is regular. 14:54 Respiratory: Respiratory effort is labored, shallow, Respiratory pattern is tachypnea ks7 Breath sounds are diminished bilaterally. in right upper lobe, left upper lobe, right middle lobe, left lower lobe and right lower lobe. 16:58 Reassessment: pt more alert, talking, denies pain. keeps trying to take bipap off. ks7 19:26 Reassessment: pt took off bipap and bp cuff. asking for water. gave pt some ice dhips, ks7 placed bipap back on pt. 21:04 Reassessment: No changes from previously documented assessment. asleep in room ks7 tolerting bipap. 22:00 Reassessment: No changes from previously documented assessment. ks7 23:14 Reassessment: Patient is alert, oriented x 3, equal unlabored respirations, skin ks7 warm/dry/pink. pt pulled off bipap machine bc he wanted a drink of H20. pt awake alert and appropriate, used call light and pressed water button for water. repositioned pt with incoming freight clerk, pulled pt up in bed. placed pt on 4L NC. pt maintains sp02 98%. 23:32 Reassessment: pt senior front end engineer light again. blanket and ice chips given to pt. ks7 03/25 00:20 Reassessment: Patient is alert, oriented x 3, equal unlabored respirations, skin ks7 warm/dry/pink. pt senior front end engineer again. updated pt on sp02 and how many L 02 he is on. pt asked for pain meds Patient states feeling better. Patient states symptoms have improved. 01:37 Reassessment: Patient and/or family updated on plan of care and expected duration. Pain ea level reassessed. Patient is alert, oriented x 3, equal unlabored respirations, skin warm/dry/pink. Pt admitted to ICU 4, left ED via stretcher per technical program manager and respiratory. Pt tolerating well. Vital Signs: 03/24 14:27 BP 135 / 53; Pulse 56; Resp 22; Pulse Ox 98% on Non-rebreather mask; dh4 15:30 BP 142 / 61; Pulse 51; Resp 19; Pulse Ox 99% on BiPAP; Pain 0/10; ks7 15:45 BP 158 / 148; Pulse 56; Resp 18; Pulse Ox 99% on BiPAP; Pain 0/10; ks7 16:10 BP 194 / 173; Pulse 51; Resp 19; Pulse Ox 99% on BiPAP; Pain 0/10; ks7 16:56 BP 135 / 57; Pulse 52; Resp 20; Temp 97.9(TE); Pulse Ox 99% on BiPAP; Pain 0/10; ks7 17:40 BP 133 / 51; Pulse 56; Resp 20; Pulse Ox 95% on BiPAP; Pain 0/10; ks7 18:00 BP 130 / 43; Pulse 49; Resp 20; Pulse Ox 98% on BiPAP; Pain 0/10; ks7 18:30 BP 115 / 39; Pulse 48; Resp 20; Pulse Ox 98% on BiPAP; Pain 0/10; ks7 19:00 BP 117 / ???; Pulse 47; Resp 24; Pulse Ox 95% on BiPAP; Pain 0/10; ks7 19:27 Pulse Ox 95% on Mask: BiPAP; Pain 0/10; ks7 19:28 Pain 0/10; ks7 19:30 BP 133 / 57; Pulse 57; Resp 20; Pulse Ox 99% on BiPAP; Pain 0/10; ks7 20:00 BP 142 / 55; Pulse 56; Resp 20; Pulse Ox 99% on BiPAP; Pain 0/10; ks7 20:30 BP 122 / 48; Pulse 47; Resp 20; Pulse Ox 99% on BiPAP; Pain 0/10; ks7 20:53 Pain 0/10; ks7 20:53 Pain 0/10; ks7 21:00 BP 119 / 47; Pulse 45; Resp 20; Pulse Ox 98% on BiPAP; Pain 0/10; ks7 21:30 BP 144 / 80; Pulse 44; Resp 20; Pulse Ox 98% on BiPAP; Pain 0/10; ks7 22:00 BP 100 / 36; Pulse 58; Resp 20; Pulse Ox 99% on BiPAP; Pain 0/10; ks7 22:30 BP 122 / 89; Pulse 60; Resp 22; Pulse Ox 99% on BiPAP; Pain 0/10; ks7 22:58 BP 133 / 92; Pulse 56; Resp 22; Temp 97.9(TE); Pulse Ox 100% on BiPAP; Pain 0/10; ks7 03/25 00:21 BP 132 / 71; Pulse 58; Resp 20; Temp 97.7(TE); Pulse Ox 97% on 3 lpm NC; Pain 5/10; ks7 01:37 BP 128 / 60; Pulse 57; Resp 19; Pulse Ox 97% on 3 lpm NC; ea ED Course: 03/24 13:46 Patient arrived in ED. hb 13:50 Chalino Vera MD is Attending Physician. kdr 13:53 Triage completed. hb 13:53 Arm band placed on. hb 14:45 Rashid Garcia MD is Hospitalizing Provider. kdr 14:46 Clarita Michaels, ALTAF is Primary Nurse. ks7 14:49 Patient has correct armband on for positive identification. Placed in gown. Bed in low ks7 position. Call light in reach. Side rails up X2. 14:49 No provider procedures requiring assistance completed. Inserted saline lock: 20 gauge ks7 in right forearm, using aseptic technique. Blood collected. Missed attempt(s): 20 gauge in left hand. forearm. 14:55 ABG Sent. ks7 14:55 D-Dimer Sent. ks7 14:56 Blood Culture Adult (2) Sent. ks7 14:56 Strep Sent. ks7 14:56 Urine Microscopic Only Sent. ks7 14:56 CXR XRAY Sent. ks7 15:07 CXR XRAY In Process Unspecified. EDMS 16:10 Throat Culture Sent. ks7 16:57 Blood Culture Adult (2) Sent. ks7 16:57 BMP Sent. ks7 16:57 C-Reactive Protein Sent. ks7 16:57 CBC with Diff Sent. ks7 16:57 D-Dimer Sent. ks7 16:57 Ferritin Sent. ks7 16:57 Lactate Sent. ks7 16:57 LFT's Sent. ks7 16:57 Lipase Sent. ks7 16:57 Procalcitonin Sent. ks7 16:57 PT-INR Sent. ks7 16:57 Ptt, Activated Sent. ks7 16:58 Troponin (emerg Dept Use Only) Sent. ks7 16:58 Urine Microscopic Only Sent. ks7 17:16 Notified ED physician of a critical lab result(s). DDIMER 1,201. hb 17:45 Repositioned patient. Cleaned of incontinence. Linen changed. ks7 20:54 Resting quietly. ks7 20:54 Flushed Converted IV to saline lock on right forearm. ks7 22:23 Merida cath inserted, using sterile technique, 18 Fr., by me, by incoming freight clerk, balloon dh4 inflated, to gravity drainage, clamped. Patient tolerated well. 03/25 01:12 Patient admitted, IV remains in place. ea Administered Medications: Discontinued: Rocephin - (cefTRIAXone) 1 grams IVPB once over 30 mins; (mix in 50 mL NS) 03/24 16:22 Drug: Decadron - Dexamethasone 6 mg Route: IVP; Site: right forearm; ks7 19:27 Follow up: Pulse Ox 95% Mask: BiPAP; Pain 0/10 Adult ks7 20:53 Follow up: Pain 0/10 Adult ks7 16:24 Drug: Rocephin - (cefTRIAXone) 1 grams Route: IVPB; Infused Over: 30 mins; Site: right ks7 forearm; 19:28 Follow up: Pain 0/10 Adult ks7 20:53 Follow up: Pain 0/10 Adult ks7 16:26 Not Given (pt on bipap, RT to administer. pt covid positive. ): Albuterol - atroVENT ks7 (3:1) (2.5 mg - 0.5 mg) 3 ml Nebulizer once Outcome: 14:46 Decision to Hospitalize by Provider. kdr 03/25 01:12 Condition: stable ea Instructed on the need for admit, Demonstrated understanding of instructions. 01:36 Admitted to ICU accompanied by tech, room 4, with oxygen, with chart, Report called to ea Receiving RN in ICU 01:38 Patient left the ED. ea Signatures: Dispatcher [employer] EDMS Chalino Vera MD MD [facility] Nirali Duran RN RN Karina Kwong RN RN Marquis Bravo [facility] Clarita Michaels RN RN ks7 Corrections: (The following items were deleted from the chart) 03/24 23:18 23:14 Reassessment: pt pulled off bipap machine bc he wanted a drink of H20. pt awake ks7 alert and appropriate, used call light and pressed water button for water. repositioned pt with incoming freight clerk, pulled pt up in bed. placed pt on 4L NC. pt maintains sp02 98%. ks7
--- NOTE | 2020-03-24 15:33 | RAD REPORT ---
EXAM DESCRIPTION: Luis Eduardo Single View03/24/2020 3:07 pm CLINICAL HISTORY: Shortness of breath COMPARISON: October 2019 FINDINGS: Mild bilateral pulmonary opacities The heart is enlarged IMPRESSION: Mild bilateral pulmonary opacities may indicate pneumonia
--- NOTE | 2020-03-24 16:20 | P.HP ---
Certification for Inpatient Patient admitted to: Inpatient With expected LOS: >2 Midnights Patient will require the following post-hospital care: None Practitioner: I am a practitioner with admitting privileges, knowledge of patient current condition, hospital course, and medical plan of care. Services: Services provided to patient in accordance with Admission requirements found in Title 42 Section 412.3 of the Code of Federal Regulations <Boris Villatoro - Last Filed: 03/24/20 16:12> Patient History Date of Service: 03/24/20 Primary Care Provider: residential doctor Reason for admission: Acute respiratory failure, COVID History of Present Illness: 74-year-old male with medical history of diabetes mellitus type 2, COPD on chronic home oxygen, hypertension, hyperlipidemia was brought in by ambulance from the assisted for shortness of breath. Patient was tested positive for COVID on Friday of this week. EMS reported that his oxygen saturation on nasal cannula was 40%. EMS reports that his saturations on nasal cannula werecloser to 80%. Patient was placed on non-rebreather and brought to the emergency department. Upon arrival to the emergency department patient was placed on BiPAP. ABG was drawn. ABG showed pH is 7.2, CO2 87. Patient also appears lethargic and altered to some degree. Patient reported usually be alert, oriented to 2 usually. ED provider wishes to admit patient for further evaluation management - Past Medical/Surgical History Diabetic: Yes -: Severe COPD -: DM NIDDM -: HTN -: High cholesterol -: Bipolar -: CHF -: Heart stents - Family History Family History: Reviewed- Non-Contributory - Family History Mother Notes: Stroke - Social History Alcohol use: No CD- Drugs: No Caffeine use: No Place of Residence: Intermediate <Boris Villatoro - Last Filed: 03/24/20 16:12> Date of Service: 03/25/20 <Steven Garcia - Last Filed: 03/25/20 11:44> Allergies caffeine Allergy (Verified 03/12/19 22:27) Anaphylaxis codeine Allergy (Verified 03/12/19 22:27) Anaphylaxis Home Medications: Acetaminophen [Tylenol] 2 tab PO Q6H PRN 03/25/20 Albuterol Neb [Proventil 0.083% Neb Soln] 1 inh IH TID 03/25/20 Amiodarone HCl [Cordarone Tab] 200 mg PO DAILY 03/25/20 Ascorbic Acid [Vitamin C] 500 mg PO DAILY 03/25/20 Atorvastatin Calcium [Lipitor] 10 mg PO BEDTIME 03/25/20 Azithromycin Tab [Zithromax*] 250 mg PO DAILY 03/25/20 Brimonidine [Alphagan P 0.15%*] 1 drop OPTH BID 03/25/20 Budesonide/Formoterol Fumarate [Symbicort 160-4.5 Mcg Inhaler] 2 puff IH DAILY 03/25/20 Buspirone HCl [Buspar] 10 mg PO TID 03/25/20 Carvedilol [Coreg] 6.25 mg PO BID 03/25/20 Cholecalciferol (Vitamin D3) [Vitamin D3] 25 mcg PO DAILY 03/25/20 Clonidine HCl [Catapres] 0.1 mg PO BID 03/25/20 Divalproex Sodium [Divalproex Sodium ER] 500 mg PO BEDTIME 03/25/20 Docusate [Colace Cap*] 2 cap PO BID 03/25/20 Doxepin HCl 25 mg PO BEDTIME PRN 03/25/20 Furosemide [Lasix*] 1 tab PO DAILY 03/25/20 Furosemide [Lasix] 40 mg PO BID 03/25/20 Guaifenesin [Cough Syrup] 10 ml PO Q6H PRN 03/25/20 Insulin Degludec [Tresiba Flextouch U-100] 60 unit SQ BEDTIME 03/25/20 Levothyroxine [Synthroid] 100 mcg PO [id number] 03/25/20 Lisinopril [Zestril] 20 mg PO DAILY 03/25/20 Magnesium Hydroxide [Milk of Magnesia] 30 ml PO DAILY PRN 03/25/20 Melatonin 2 tab PO BEDTIME 03/25/20 Memantine HCl [Namenda*] 1 tab PO BID 03/25/20 Potassium Chloride [Klor-Con M20] 1 tab PO DAILY 03/25/20 Rivaroxaban [Xarelto] 20 mg PO DAILY 03/25/20 Sitagliptin Phosphate [Januvia*] 1 tab PO DAILY 03/25/20 Venlafaxine HCl 75 mg PO DAILY 03/25/20 Zinc Sulfate [Zinc Sulfate*] 220 mg PO DAILY 03/25/20 Zino-220 1 cap PO DAILY 03/25/20 acetaZOLAMIDE [Diamox] 250 mg PO DAILY 03/25/20 predniSONE [Deltasone] 40 mg PO DAILY 03/25/20 Review of Systems is unable to be obtained <Boris Villatoro - Last Filed: 03/24/20 16:12> Physical Examination - Physical Exam General: Mild distress, Confused HEENT: Atraumatic, Normocephalic Neck: Supple Respiratory: Diminished (Bilaterally), Expiratory wheezes Cardiovascular: Regular rate/rhythm, Normal S1 S2 Capillary refill: <2 Seconds Gastrointestinal: Normal bowel sounds, Soft and benign Musculoskeletal: No contractures, No erythema, No tenderness Integumentary: No significant lesion, No tenderness/swelling, No erythema Neurological: Normal tone - Studies Microbiology Data (last 24 hrs): 03/24/20 14:07 Nasopharnyx Influenza Type A Antigen Screen - Final 03/24/20 14:07 Nasopharnyx Influenza Type B Antigen Screen - Final 03/24/20 14:07 Throat Group A Streptococcus Rapid Screen - Final <Boris Villatoro - Last Filed: 03/24/20 16:12> - Studies Microbiology Data (last 24 hrs): 03/24/20 14:07 Nasopharnyx Influenza Type A Antigen Screen - Final 03/24/20 14:07 Nasopharnyx Influenza Type B Antigen Screen - Final 03/24/20 14:07 Throat Group A Streptococcus Rapid Screen - Final <Steven Garcia - Last Filed: 03/25/20 11:44> Assessment and Plan - Plan Assessment Acute on chronic respiratory failure with hypercapnia and acidosis secondary to COVID 19 pneumonia complicated with COPD on chronic home oxygen therapy Diabetes mellitus type 2-insulin dependent Chronic diastolic congestive heart failure Hypertension Hyperlipidemia Bipolar disorder Plan Acute on chronic respiratory failure with hypercapnia and acidosis secondary to COVID 19 pneumonia complicated with COPD on chronic home oxygen therapy: Patient placed on BiPAP while in the emergency department. Will consult pulmonology. Continue with Decadron IV, oral zinc, thiamine, folic acid. Will initiate Eliquis 5 mg p.o. b.i.d.. Respiratory therapy consult in place, titrate oxygen saturations to 90%. Appreciate further input from pulmonology. Diabetes mellitus type 2-insulin dependent: A.c. HS Accu-Cheks, sliding scale insulin therapy. Will continue patient's home insulin as soon as the dose is verified. Chronic diastolic congestive heart failure: Echocardiogram 2019 shows normal ejection fraction, will continue patient's home medications. Appears stable at this time. Hypertension: Continue patient's home medications. Hyperlipidemia: Continue patient's home medications. Bipolar disorder: Continue patient's home medications. Discharge Plan: Intermediate Plan to discharge in: Greater than 2 days - Advance Directives Does patient have a Living Will: No Does patient have a Durable POA for Healthcare: Yes - Code Status/Comfort Care Code Status Assessed: Yes (Patient is full code) Critical Care: No Time Spent Managing Pts Care (In Minutes): 55 <Boris Villatoro - Last Filed: 03/24/20 16:12> Physician Review: Patient Assessed, Agree with Above Assessment and Plan Physician Review Additional Text: The patient was seen and examined and discussed about the findings on 03.24.2020 Agree with the assessment and plan as documented by the BETTY monitor closely <Steven Garcia - Last Filed: 03/25/20 11:44>
[2020-03-24] MEDS ORDERED: dexAMETHasone 10 MG/ML VIAL ONE (16:26)
[2020-03-24] MEDS ORDERED: CEFTRIAXONE/SWI 1gm 1 GM/10 ML SYR ONE (16:26)
[2020-03-24 16:56] LABS: Absolute Lymphocytes (CBC) 0.4 K/uL (0.7-4.9); Basophils % 0.1 % (0-1.3); Hematocrit 34.8 % (39.6-49.0); Lymphocytes % 5.5 % (15.3-44.8); RBC Red Blood Cell Count 3.92 M/uL (4.33-5.43)
[2020-03-24 17:00] LABS: Protime INR 1.21
[2020-03-24 17:00] LABS: Urine Amorphous Sediment 2+ /HPF (NONE SEEN); Urine Bacteria 20-50 /HPF (NONE SEEN); Urine Culture Reflex Order REFLEXED; Urine RBC <5 /HPF (NONE SEEN)
[2020-03-24 17:18] LABS: Albumin 2.2 g/dL (3.4-5.0); Bilirubin Direct 0.2 mg/dL (0-0.2); Bilirubin Total 0.3 mg/dL (0.2-1.0); Ferritin 335.4 ng/mL (26-388); Potassium 4.4 mmol/L (3.5-5.1); Protein, Total 6.7 g/dL (6.4-8.2); Troponin (Emerg Dept Use Only) 0.14 ng/mL (0.0-0.045)
[2020-03-24 17:42] LABS: Arterial Blood Carboxyhemoglob 1.4 % (0-1.5); Blood Gas Oxyhemoglobin 93.7 % (94-97); Blood O2 Saturation 95.7 % (92-98.5)
[2020-03-24 17:44] LABS: Blood Morphology Comment NOT SEEN (NOT SEEN); Platelet Estimate ADEQ
[2020-03-25 01:54] VITALS: BMI 34.7
[2020-03-25] MEDS: BUDESONIDE 0.5 MG/2 ML NEB NEB SCH ×3 (02:02→19:40)
[2020-03-25] MEDS ORDERED: ACETAMINOPHEN 500 MG TAB PO PRN (02:02)
[2020-03-25] MEDS ORDERED: ONDANSETRON 4 MG/2 ML VIAL IV PRN (02:02)
[2020-03-25] MEDS: INSULIN -REGULAR HUMAN 50 UNIT/0.5 ML ML SQ SCH ×5 (02:19→21:50)
[2020-03-25] MEDS: dexAMETHasone 10 MG/ML VIAL IV SCH ×3 (02:20→17:09)
[2020-03-25 05:20] LABS: Absolute Lymphocytes (CBC) 0.4 K/uL (0.7-4.9); Basophils % 0.1 % (0-1.3); Hematocrit 31.4 % (39.6-49.0); Lymphocytes % 5.9 % (15.3-44.8); MPV 10.7 fL (7.6-11.3); RBC Red Blood Cell Count 3.55 M/uL (4.33-5.43)
[2020-03-25 05:27] LABS: Magnesium 2.1 mg/dL (1.8-2.4); Potassium 4.7 mmol/L (3.5-5.1)
--- NOTE | 2020-03-25 07:29 | EKG ---
Test Date: 2020-03-24 Test Time: 16:53:52 Rare/Endangered Species Specialist: JOSSIE MEASUREMENT RESULTS: Intervals: Rate: 52 SC: 176 QRSD: 78 QT: 448 QTc: 416 [place]: P: 64 SC: 176 QRS: 30 T: 26 INTERPRETIVE STATEMENTS: Sinus bradycardia Otherwise normal ECG Compared to ECG 08/27/2019 17:40:30 Sinus rhythm no longer present Electronically Signed On 03-25-20 07:28:54 CDT by Kade Garcia
[2020-03-25] MEDS ORDERED: VANCOMYCIN/NS 1 gm 1 GM/250 ML BAG IVPB SCH (08:00)
[2020-03-25] MEDS: THIAMINE HCL 100 MG TABLET PO SCH (08:23)
[2020-03-25] MEDS: FOLIC ACID 1 MG TABLET PO SCH (08:23)
[2020-03-25] MEDS: ZINC SULFATE 220 MG CAP PO SCH (08:28)
--- NOTE | 2020-03-25 08:41 | P.PN ---
Subjective Date of Service: 03/25/20 Primary Care Provider: [facility] doctor Chief Complaint: Acute respiratory failure, COVID Subjective: Improving Patient is greatly improved today, patient is now awake, alert and on nasal cannula. <Boris Villatoro - Last Filed: 03/25/20 08:38> Date of Service: 03/25/20 <Steven Garcia - Last Filed: 03/25/20 11:44> Review of Systems 10-point ROS is otherwise unremarkable Respiratory: Cough, Shortness of Breath <Boris Villatoro - Last Filed: 03/25/20 08:38> Physical Examination - Vital Signs Temperature: 97.8 F Blood Pressure: 131/63 Pulse: 54 Respirations: 14 Pulse Ox (%): 97 - Physical Exam General: Alert, In no apparent distress HEENT: Atraumatic, Normocephalic, PERRLA Neck: Supple Respiratory: Clear to auscultation bilaterally, Normal air movement Cardiovascular: No edema, Regular rate/rhythm, Normal S1 S2 Capillary refill: <2 Seconds Gastrointestinal: Normal bowel sounds, Soft and benign Musculoskeletal: No contractures, No erythema Integumentary: No significant lesion, No tenderness/swelling, No erythema Neurological: Normal strength at 5/5 x4 extr, Normal tone, Sensation intact - Studies Microbiology Data (last 24 hrs): 03/24/20 14:07 Nasopharnyx Influenza Type A Antigen Screen - Final 03/24/20 14:07 Nasopharnyx Influenza Type B Antigen Screen - Final 03/24/20 14:07 Throat Group A Streptococcus Rapid Screen - Final <Boris Villatoro - Last Filed: 03/25/20 08:38> - Studies Microbiology Data (last 24 hrs): 03/24/20 14:07 Nasopharnyx Influenza Type A Antigen Screen - Final 03/24/20 14:07 Nasopharnyx Influenza Type B Antigen Screen - Final 03/24/20 14:07 Throat Group A Streptococcus Rapid Screen - Final <Steven Garcia - Last Filed: 03/25/20 11:44> Assessment & Plan Discharge Plan: Snf Plan to discharge in: 24 Hours - Code Status/Comfort Care Code Status Assessed: Yes (full code) Physician Review Additional Text: Assessment Acute on chronic respiratory failure with hypercapnia and acidosis secondary to COVID 19 pneumonia complicated with COPD on chronic home oxygen therapy Diabetes mellitus type 2-insulin dependent Chronic diastolic congestive heart failure Hypertension Hyperlipidemia Bipolar disorder Plan Acute on chronic respiratory failure with hypercapnia and acidosis secondary to COVID 19 pneumonia complicated with COPD on chronic home oxygen therapy: Patient did very well overnight, was taken off of BiPAP. Patient now on nasal cannula. Patient mentation has improved greatly. He is now awake, alert. Patient tolerating nasal cannula well which she uses at [facility] already. Preliminary blood cultures positive for Gram positive cocci in clusters. Antibiotics started. Will await final culture results. Anticipate discharge in the next 24-48 hr. Patient downgraded from ICU to tele. Diabetes mellitus type 2-insulin dependent: A.c. HS Accu-Cheks, sliding scale insulin therapy. Will continue patient's home insulin as soon as the dose is verified. Chronic diastolic congestive heart failure: Echocardiogram 2019 shows normal ejection fraction, will continue patient's home medications. Appears stable at this time. Hypertension: Continue patient's home medications. Hyperlipidemia: Continue patient's home medications. Bipolar disorder: Continue patient's home medications. Critical Care: No Time Spent Managing Pts Care (In Minutes): 55 <Boris Villatoro - Last Filed: 03/25/20 08:38> Physician Review Additional Text: The patient was seen and examined and discussed about the findings Agree with the assessment and plan as documented by the BETTY Will try to wean down the oxygen requirement monitor closely <Steven Garcia - Last Filed: 03/25/20 11:44>
[2020-03-25] MEDS ORDERED: CEFEPIME 1 GM/VIAL IV SCH (09:00)
[2020-03-25] MEDS ORDERED: FUROSEMIDE 20 MG TABLET PO SCH (09:00)
[2020-03-25] MEDS ORDERED: APIXABAN 5 MG TABLET PO SCH (09:00)
[2020-03-25] MEDS: VANCOMYCIN 2 GM in NA CHLORIDE 0.9% 500 ML IV SCH (09:00)
[2020-03-25] MEDS: CEFEPIME/SWI 1gm 10 ML IVP SCH ×2 (09:01→21:47)
[2020-03-25] MEDS: ALPRAZOLAM 0.5 MG TABLET PO PRN (09:48)
--- NOTE | 2020-03-25 10:01 | P.CNS ---
Date of Consult: 03/25/20 (Telephone Visit) Primary Care Provider: assisted doctor Chief Complaint: Acute respiratory failure, COVID History of Present Illness: PT is 74 yrs of age. multiple med problems. Pos for COVID. Aw resp failure. Tx to the ICU. CHARLIE nurse fercho lawson. Hypoxic hyperecrbic resp failure Allergies caffeine Allergy (Verified 03/12/19 22:27) Anaphylaxis codeine Allergy (Verified 03/12/19 22:27) Anaphylaxis Home Medications: Unobtainable 03/25/20 - Past Medical/Surgical History Diabetic: Yes -: Severe COPD -: DM NIDDM -: HTN -: High cholesterol -: Bipolar -: CHF -: Heart stents - Family History Mother Notes: Stroke - Social History Smoking Status: Unknown if ever smoked Alcohol use: No CD- Drugs: No Caffeine use: No Place of Residence: [facility] Physical Examination Temp Pulse Resp BP Pulse Ox 97.8 F 54 14 131/63 97 03/25/20 08:41 03/25/20 08:41 03/25/20 08:41 03/25/20 08:41 03/25/20 08:41 - Problems (1) Respiratory failure Current Visit: No Status: Acute Plan: Pt COVID pos AW resp failure. Hypoxic hypercargbic. ALLbs rev. CXRY likely COVID C mild Renal failure. Normal WBC mild anemic VS [id number] Multiple med problems in degenetrative brain disorders. Falls etc. Plan for D/C home Blood cultures veronikaley contaminant. Add Brovana Qualifiers: Respiratory failure complication: hypoxia and hypercapnia
[2020-03-25] MEDS: ARFORMOTEROL TARTRATE 15 MCG/2 ML VIAL.NEB NEB SCH ×2 (10:08→19:40)
[2020-03-25] MEDS ORDERED: DOXEPIN HCL 25 MG CAP PO PRN (15:43)
[2020-03-25] MEDS ORDERED: MAGNESIUM HYDROXIDE 8% 30 ML PO PRN (15:43)
[2020-03-25] MEDS: guaiFENesin 100 MG/5 ML UCUP PO PRN (20:40)
[2020-03-25] MEDS: DIVALPROEX ER 250 MG TAB PO SCH (21:00)
[2020-03-25] MEDS: carvediloL 3.125 MG TAB PO SCH (21:00)
[2020-03-25] MEDS: MEMANTINE HCL 10 MG TABLET PO SCH (21:47)
[2020-03-25] MEDS: ATORVASTATIN 10 MG TAB PO SCH (21:48)
[2020-03-25] MEDS: cloNIDine HCL 0.1 MG TAB PO SCH (21:48)
[2020-03-25] MEDS: INSULIN GLARGINE 100 UNITS/ML SQ SCH (21:49)
[2020-03-25] MEDS: FUROSEMIDE 40 MG TABLET PO SCH (21:49)
[2020-03-25] MEDS: BUSPIRONE HCL 5 MG TABLET PO SCH (22:08)
[2020-03-25] MEDS: MELATONIN 3 MG TABLET PO SCH (22:08)
[2020-03-25] MEDS ORDERED: DIVALPROEX DR 500MG TAB PO ONE (22:14)
[2020-03-25] MEDS ORDERED: BUSPIRONE HCL 5 MG TABLET ONE (22:14)
[2020-03-25] MEDS ORDERED: MELATONIN 3 MG TABLET PO ONE (22:14)
[2020-03-26] MEDS: dexAMETHasone 10 MG/ML VIAL IV SCH ×3 (00:42→17:35)
[2020-03-26] MEDS: LEVOTHYROXINE SOD 0.05 MG TABLET PO SCH (05:39)
[2020-03-26 05:45] LABS: Absolute Lymphocytes (CBC) 0.5 K/uL (0.7-4.9); Basophils % 0.2 % (0-1.3); Hematocrit 33.9 % (39.6-49.0); Lymphocytes % 4.7 % (15.3-44.8); MPV 10.4 fL (7.6-11.3); RBC Red Blood Cell Count 3.84 M/uL (4.33-5.43)
[2020-03-26] MEDS: ALPRAZOLAM 0.5 MG TABLET PO PRN ×2 (05:45→20:23)
[2020-03-26 06:05] LABS: Magnesium 2.3 mg/dL (1.8-2.4); Potassium 4.8 mmol/L (3.5-5.1)
[2020-03-26] MEDS: guaiFENesin 100 MG/5 ML UCUP PO PRN (07:25)
[2020-03-26] MEDS: cloNIDine HCL 0.1 MG TAB PO SCH ×2 (07:26→20:07)
[2020-03-26] MEDS: VENLAFAXINE HCL 75 MG TABLET PO SCH ×2 (07:26→07:29)
[2020-03-26] MEDS: ASCORBIC ACID 500 MG TABLET PO SCH (07:26)
[2020-03-26] MEDS: THIAMINE HCL 100 MG TABLET PO SCH (07:26)
[2020-03-26] MEDS: FOLIC ACID 1 MG TABLET PO SCH (07:27)
[2020-03-26] MEDS: VITAMIN D 1000 UNIT TAB PO SCH (07:27)
[2020-03-26] MEDS: carvediloL 3.125 MG TAB PO SCH ×2 (07:27→20:21)
[2020-03-26] MEDS: acetaZOLAMIDE 250 MG TAB PO SCH (07:27)
[2020-03-26] MEDS: RIVAROXABAN 10 MG TABLET PO SCH (07:27)
[2020-03-26] MEDS: ZINC SULFATE 220 MG CAP PO SCH (07:28)
[2020-03-26] MEDS: AMIODARONE HCL 200 MG TAB PO SCH (07:28)
[2020-03-26] MEDS: lisinopriL 20 MG TAB PO SCH (07:28)
[2020-03-26] MEDS: MEMANTINE HCL 10 MG TABLET PO SCH ×2 (07:28→20:23)
--- NOTE | 2020-03-26 07:28 | EKG ---
Test Date: 2020-03-24 Test Time: 16:54:37 Cable Armorer: JOSSIE MEASUREMENT RESULTS: Intervals: Rate: 52 NM: 182 QRSD: 80 QT: 482 QTc: 448 [place]: P: 61 NM: 182 QRS: 34 T: 49 INTERPRETIVE STATEMENTS: Sinus tachycardia with 2nd degree AV block with 2:1 AV conduction Abnormal ECG Compared to ECG 03/24/2020 16:53:52 Sinus bradycardia no longer present Electronically Signed On 03-26-20 07:25:28 CDT by Kade Garcia
[2020-03-26] MEDS: FUROSEMIDE 40 MG TABLET PO SCH ×2 (07:29→20:22)
[2020-03-26] MEDS: INSULIN -REGULAR HUMAN 50 UNIT/0.5 ML ML SQ SCH ×4 (07:29→20:24)
[2020-03-26] MEDS: POTASSIUM CL SA 10 MEQ TAB PO SCH (07:31)
[2020-03-26] MEDS: CEFEPIME/SWI 1gm 10 ML IVP SCH ×2 (07:31→20:24)
[2020-03-26 07:59] LABS: Blood Morphology Comment NOT SEEN (NOT SEEN); Platelet Estimate ADEQ; Platelets, Giant FEW
[2020-03-26] MEDS: VANCOMYCIN 2 GM in NA CHLORIDE 0.9% 500 ML IV SCH (08:46)
[2020-03-26] MEDS: SITAGLIPTIN PHOS 100 MG TAB PO SCH (08:46)
[2020-03-26] MEDS: BUSPIRONE HCL 5 MG TABLET PO SCH ×3 (08:46→20:23)
--- NOTE | 2020-03-26 09:06 | P.PN ---
Subjective Date of Service: 03/26/20 Primary Care Provider: halfway doctor Chief Complaint: Acute respiratory failure, COVID Patient is greatly improved today, patient is now awake, alert and on nasal cannula. <Boris Villatoro - Last Filed: 03/26/20 09:07> Date of Service: 03/26/20 <Steven Garcia - Last Filed: 03/26/20 09:59> Review of Systems 10-point ROS is otherwise unremarkable Respiratory: Cough, Shortness of Breath <Boris Villatoro - Last Filed: 03/26/20 09:07> Physical Examination - Vital Signs Temperature: 97.6 F Blood Pressure: 136/86 Pulse: 55 Respirations: 16 Pulse Ox (%): 92 - Physical Exam General: Alert, In no apparent distress HEENT: Atraumatic, PERRLA, EOMI Neck: Supple, JVD not distended Respiratory: Clear to auscultation bilaterally, Diminished (Bilaterally) Cardiovascular: Regular rate/rhythm, Normal S1 S2 Gastrointestinal: Normal bowel sounds, No tenderness Musculoskeletal: No tenderness Integumentary: No rashes Neurological: Normal speech, Normal tone, Normal affect Lymphatics: No axilla or inguinal lymphadenopathy - Studies Microbiology Data (last 24 hrs): 03/24/20 14:07 Throat Culture & Sensitivity - Final NORMAL UPPER RESPIRATORY TISH GROWN. 03/24/20 14:40 Clean Catch Urine [place] Count - Final 03/24/20 14:40 Clean Catch Urine - Final No growth. <Boris Villatoro - Last Filed: 03/26/20 09:07> - Studies Microbiology Data (last 24 hrs): 03/24/20 14:07 Throat Culture & Sensitivity - Final NORMAL UPPER RESPIRATORY TISH GROWN. 03/24/20 14:40 Clean Catch Urine [place] Count - Final 03/24/20 14:40 Clean Catch Urine - Final No growth. <Steven Garcia - Last Filed: 03/26/20 09:59> Assessment & Plan Discharge Plan: Shelter Plan to discharge in: 48 Hours - Code Status/Comfort Care Code Status Assessed: Yes (Patient is full code) Physician Review: Patient Assessed, Agree with Above Assessment and Plan Physician Review Additional Text: Assessment Acute on chronic respiratory failure with hypercapnia and acidosis secondary to COVID 19 pneumonia complicated with COPD on chronic home oxygen therapy Diabetes mellitus type 2-insulin dependent Chronic diastolic congestive heart failure Hypertension Hyperlipidemia Bipolar disorder Plan Acute on chronic respiratory failure with hypercapnia and acidosis secondary to COVID 19 pneumonia complicated with COPD on chronic home oxygen therapy: Patient did very well overnight, was taken off of BiPAP. Patient now on nasal cannula. Patient mentation has improved greatly. He is now awake, alert. Patient tolerating nasal cannula well which she uses at [facility] already. Preliminary blood cultures positive for Gram positive cocci in pairs and chains. Anaerobic blood culture positive for gram-negative rods. Await final culture report. Antibiotics have been initiated. Anticipate discharge in the next 24- 48 hr. Patient downgraded from ICU to tele. Diabetes mellitus type 2-insulin dependent: A.c. HS Accu-Cheks, sliding scale insulin therapy. Have continued patient's long-acting insulin adjusted dose for hospitalization. Chronic diastolic congestive heart failure: Echocardiogram 2019 shows normal ejection fraction, will continue patient's home medications. Appears stable at this time. Have continue patient's home medication Lasix. Hypertension: Have continue patient's home medications. Will adjust as necessary. Hyperlipidemia: Have continued patient's medications. Bipolar disorder: Continue patient's home medications. Added Xanax 1 mg p.r.n. anxiety. Patient very anxious. Critical Care: No Time Spent Managing Pts Care (In Minutes): 55 <Boris Villatoro - Last Filed: 03/26/20 09:07> Physician Review Additional Text: The patient was seen and examined and findings were discussed Agreee with the Assessment and plan as documented by the BETTY <Steven Garcia - Last Filed: 03/26/20 09:59>
[2020-03-26] MEDS: BUDESONIDE 0.5 MG/2 ML NEB NEB SCH ×2 (09:09→20:36)
[2020-03-26] MEDS: ARFORMOTEROL TARTRATE 15 MCG/2 ML VIAL.NEB NEB SCH ×2 (09:09→20:36)
[2020-03-26] MEDS: DIVALPROEX ER 250 MG TAB PO SCH (20:07)
[2020-03-26] MEDS: MELATONIN 3 MG TABLET PO SCH (20:07)
[2020-03-26] MEDS: ATORVASTATIN 10 MG TAB PO SCH (20:22)
[2020-03-26] MEDS: INSULIN GLARGINE 100 UNITS/ML SQ SCH (20:25)
[2020-03-27] MEDS: dexAMETHasone 10 MG/ML VIAL IV SCH ×2 (00:06→08:55)
[2020-03-27] MEDS: IPRATROPIUM BROM 0.5MG/2.5ML NEB PRN ×2 (02:38→20:00)
[2020-03-27 04:48] LABS: Absolute Lymphocytes (CBC) 0.4 K/uL (0.7-4.9); Basophils % 0.5 % (0-1.3); Hematocrit 34.9 % (39.6-49.0); Lymphocytes % 4.1 % (15.3-44.8); MPV 10.1 fL (7.6-11.3); RBC Red Blood Cell Count 3.97 M/uL (4.33-5.43)
[2020-03-27 05:03] LABS: Magnesium 2.1 mg/dL (1.8-2.4); Potassium 4.2 mmol/L (3.5-5.1)
[2020-03-27] MEDS: guaiFENesin 100 MG/5 ML UCUP PO PRN ×2 (05:30→22:26)
[2020-03-27] MEDS: LEVOTHYROXINE SOD 0.05 MG TABLET PO SCH (05:30)
[2020-03-27] MEDS: ALPRAZOLAM 0.5 MG TABLET PO PRN ×3 (05:30→22:13)
[2020-03-27] MEDS: cloNIDine HCL 0.1 MG TAB PO SCH ×2 (08:52→20:25)
[2020-03-27] MEDS: FUROSEMIDE 40 MG TABLET PO SCH ×2 (08:52→20:24)
[2020-03-27] MEDS: acetaZOLAMIDE 250 MG TAB PO SCH (08:52)
[2020-03-27] MEDS: ASCORBIC ACID 500 MG TABLET PO SCH (08:53)
[2020-03-27] MEDS: MEMANTINE HCL 10 MG TABLET PO SCH ×2 (08:53→20:24)
[2020-03-27] MEDS: POTASSIUM CL SA 10 MEQ TAB PO SCH (08:53)
[2020-03-27] MEDS: lisinopriL 20 MG TAB PO SCH (08:53)
[2020-03-27] MEDS: FOLIC ACID 1 MG TABLET PO SCH (08:53)
[2020-03-27] MEDS: RIVAROXABAN 10 MG TABLET PO SCH (08:53)
[2020-03-27] MEDS: VENLAFAXINE HCL 75 MG TABLET PO SCH (08:53)
[2020-03-27] MEDS: BUSPIRONE HCL 5 MG TABLET PO SCH ×3 (08:54→20:24)
[2020-03-27] MEDS: THIAMINE HCL 100 MG TABLET PO SCH (08:54)
[2020-03-27] MEDS: SITAGLIPTIN PHOS 100 MG TAB PO SCH (08:54)
[2020-03-27] MEDS: INSULIN -REGULAR HUMAN 50 UNIT/0.5 ML ML SQ SCH ×4 (08:54→20:23)
[2020-03-27] MEDS: ZINC SULFATE 220 MG CAP PO SCH (08:54)
[2020-03-27] MEDS: CEFEPIME/SWI 1gm 10 ML IVP SCH (08:55)
[2020-03-27] MEDS: carvediloL 3.125 MG TAB PO SCH ×2 (08:56→20:25)
[2020-03-27] MEDS: AMIODARONE HCL 200 MG TAB PO SCH (08:56)
[2020-03-27] MEDS: VANCOMYCIN 2 GM in NA CHLORIDE 0.9% 500 ML IV SCH (08:57)
[2020-03-27] MEDS: VITAMIN D 1000 UNIT TAB PO SCH (09:00)
--- NOTE | 2020-03-27 09:20 | P.PN ---
Subjective Date of Service: 03/27/20 Primary Care Provider: assisted doctor Chief Complaint: Acute respiratory failure, COVID Subjective: Improving Patient is greatly improved today, patient is now awake, alert and on nasal cannula. <Boris Villatoro - Last Filed: 03/27/20 09:19> Date of Service: 03/27/20 <Steven Garcia - Last Filed: 03/27/20 15:17> Review of Systems General: Other (Anxiety) Respiratory: Cough, Shortness of Breath <Boris Villatoro - Last Filed: 03/27/20 09:19> Physical Examination - Vital Signs Temperature: 98.1 F Blood Pressure: 177/68 Pulse: 49 Respirations: 14 Pulse Ox (%): 93 - Physical Exam General: Alert, In no apparent distress HEENT: Atraumatic, PERRLA, EOMI Neck: Supple, JVD not distended Respiratory: Clear to auscultation bilaterally, Normal air movement Cardiovascular: Regular rate/rhythm, Normal S1 S2 Gastrointestinal: Normal bowel sounds, No tenderness Musculoskeletal: No tenderness Integumentary: No rashes Neurological: Normal speech, Normal tone, Normal affect Lymphatics: No axilla or inguinal lymphadenopathy - Studies Microbiology Data (last 24 hrs): 03/24/20 14:03 Blood - Blood Aerobic Blood Culture - Final Serratia Liquefaciens 03/24/20 14:03 Blood - Blood Blood Culture Gram Stain - Final 03/24/20 14:03 Blood - Blood Anaerobic Blood Culture - Final Serratia Liquefaciens 03/24/20 14:03 Blood - Blood Gram Stain - Final 03/24/20 14:07 Throat Culture & Sensitivity - Final NORMAL UPPER RESPIRATORY TISH GROWN. 03/24/20 14:40 Clean Catch Urine [place] Count - Final 03/24/20 14:40 Clean Catch Urine - Final No growth. Medications List Reviewed: Yes <Boris Villatoro - Last Filed: 03/27/20 09:19> - Studies Microbiology Data (last 24 hrs): 03/24/20 14:03 Blood - Blood Aerobic Blood Culture - Final Serratia Liquefaciens 03/24/20 14:03 Blood - Blood Blood Culture Gram Stain - Final 03/24/20 14:03 Blood - Blood Anaerobic Blood Culture - Final Serratia Liquefaciens 03/24/20 14:03 Blood - Blood Gram Stain - Final <Steven Garciaaskar - Last Filed: 03/27/20 15:17> Assessment & Plan Discharge Plan: Shelter Plan to discharge in: 24 Hours - Code Status/Comfort Care Code Status Assessed: Yes (Patient is full code) Physician Review: Patient Assessed, Agree with Above Assessment and Plan Physician Review Additional Text: Assessment Acute on chronic respiratory failure with hypercapnia and acidosis secondary to COVID 19 pneumonia complicated with COPD on chronic home oxygen therapy Diabetes mellitus type 2-insulin dependent Chronic diastolic congestive heart failure Hypertension Hyperlipidemia Bipolar disorder Plan Acute on chronic respiratory failure with hypercapnia and acidosis secondary to COVID 19 pneumonia complicated with COPD on chronic home oxygen therapy: Patient did very well overnight. Patient now on nasal cannula. Patient
[2020-03-27] MEDS: ARFORMOTEROL TARTRATE 15 MCG/2 ML VIAL.NEB NEB SCH ×2 (09:37→20:00)
[2020-03-27] MEDS: BUDESONIDE 0.5 MG/2 ML NEB NEB SCH ×2 (09:37→20:00)
[2020-03-27] MEDS: dexAMETHasone 4 MG/ML VIAL IV SCH (17:02)
[2020-03-27] MEDS: INSULIN GLARGINE 100 UNITS/ML SQ SCH (20:22)
[2020-03-27] MEDS: MELATONIN 3 MG TABLET PO SCH (20:24)
[2020-03-27] MEDS: DIVALPROEX ER 250 MG TAB PO SCH (20:24)
[2020-03-27] MEDS: ATORVASTATIN 10 MG TAB PO SCH (20:26)
[2020-03-27] MEDS: ENSURE HIGH PROTEIN 237 ML CAN PO SCH (21:39)
[2020-03-28] MEDS: dexAMETHasone 4 MG/ML VIAL IV SCH ×2 (00:34→08:36)
[2020-03-28] MEDS: ALPRAZOLAM 0.5 MG TABLET PO PRN ×2 (02:54→09:56)
[2020-03-28] MEDS: HYDRALAZINE HCL 20 MG/ML VIAL IV PRN (03:27)
[2020-03-28] MEDS: LEVOTHYROXINE SOD 0.05 MG TABLET PO SCH (05:05)
[2020-03-28 06:02] LABS: Absolute Lymphocytes (CBC) 0.3 K/uL (0.7-4.9); Basophils % 0.3 % (0-1.3); Hematocrit 33.6 % (39.6-49.0); Lymphocytes % 4.2 % (15.3-44.8); MPV 10.2 fL (7.6-11.3); RBC Red Blood Cell Count 3.88 M/uL (4.33-5.43)
[2020-03-28 06:20] LABS: Magnesium 1.9 mg/dL (1.8-2.4)
[2020-03-28] MEDS: INSULIN -REGULAR HUMAN 50 UNIT/0.5 ML ML SQ SCH ×4 (08:29→20:05)
[2020-03-28] MEDS: guaiFENesin 100 MG/5 ML UCUP PO PRN (08:34)
[2020-03-28] MEDS: SITAGLIPTIN PHOS 100 MG TAB PO SCH (08:35)
[2020-03-28] MEDS: BUSPIRONE HCL 5 MG TABLET PO SCH ×3 (08:35→20:04)
[2020-03-28] MEDS: ASCORBIC ACID 500 MG TABLET PO SCH (08:35)
[2020-03-28] MEDS: cloNIDine HCL 0.1 MG TAB PO SCH ×2 (08:35→20:04)
[2020-03-28] MEDS: VENLAFAXINE HCL 75 MG TABLET PO SCH (08:35)
[2020-03-28] MEDS: THIAMINE HCL 100 MG TABLET PO SCH (08:36)
[2020-03-28] MEDS: lisinopriL 20 MG TAB PO SCH (08:36)
[2020-03-28] MEDS: RIVAROXABAN 10 MG TABLET PO SCH (08:36)
[2020-03-28] MEDS: AMIODARONE HCL 200 MG TAB PO SCH (08:37)
[2020-03-28] MEDS: FOLIC ACID 1 MG TABLET PO SCH (08:37)
[2020-03-28] MEDS: MEMANTINE HCL 10 MG TABLET PO SCH ×2 (08:37→20:05)
[2020-03-28] MEDS: POTASSIUM CL SA 10 MEQ TAB PO SCH (08:37)
[2020-03-28] MEDS: ZINC SULFATE 220 MG CAP PO SCH (08:37)
[2020-03-28] MEDS: acetaZOLAMIDE 250 MG TAB PO SCH (08:38)
[2020-03-28] MEDS: FUROSEMIDE 40 MG TABLET PO SCH ×2 (08:38→20:05)
[2020-03-28] MEDS: carvediloL 3.125 MG TAB PO SCH ×2 (08:38→21:00)
[2020-03-28] MEDS: ENSURE HIGH PROTEIN 237 ML CAN PO SCH ×2 (08:38→20:02)
[2020-03-28] MEDS: BUDESONIDE 0.5 MG/2 ML NEB NEB SCH (08:40)
[2020-03-28] MEDS: IPRATROPIUM BROM 0.5MG/2.5ML NEB PRN (08:40)
[2020-03-28] MEDS: ARFORMOTEROL TARTRATE 15 MCG/2 ML VIAL.NEB NEB SCH ×2 (08:40→20:05)
[2020-03-28] MEDS: VITAMIN D 1000 UNIT TAB PO SCH (08:48)
[2020-03-28 09:12] LABS: Anisocytosis 1+; Blood Morphology Comment NOTED (NOT SEEN); Platelet Estimate DECR
[2020-03-28 09:13] LABS: Basophilic Stippling 1+
[2020-03-28] MEDS: METHYLPREDNISOLONE 125 MG INJ IV SCH ×2 (12:25→16:37)
--- NOTE | 2020-03-28 12:29 | P.PN ---
Subjective Date of Service: 03/28/20 Primary Care Provider: [facility] Chief Complaint: Acute respiratory failure, COVID Subjective: Improving (Patient is improving still requiring high concentrations of oxygen) Physical Examination - Vital Signs Temperature: 97 F Blood Pressure: 189/74 Pulse: 71 Respirations: 24 Pulse Ox (%): 87 - Studies Medications List Reviewed: Yes Assessment & Plan - Problems (Diagnosis) (1) Respiratory failure Current Visit: No Status: Acute Plan: Respiratory failure due to amin virus increase the dose of steroids to an titrate his O2 down C-reactive protein has declined significantly blood pressure elevated scheduled a ipratropium nebulized once is titrated down to 2 L any sat is over 90% be able to return back to the residential patient has severe COPD Qualifiers: Respiratory failure complication: hypoxia and hypercapnia Physician Review: Patient Assessed, Agree with Above Assessment and Plan
[2020-03-28] MEDS: IPRATROPIUM BROM 0.5MG/2.5ML NEB SCH ×2 (14:10→20:05)
[2020-03-28 14:59] LABS: Potassium 4.1 mmol/L (3.5-5.1)
--- NOTE | 2020-03-28 15:20 | P.PN ---
Subjective Date of Service: 03/28/20 Primary Care Provider: long-term doctor Chief Complaint: Acute respiratory failure, COVID Subjective: No new changes Review of Systems 10-point ROS is otherwise unremarkable Physical Examination - Vital Signs Temperature: 97 F Blood Pressure: 177/77 Pulse: 61 Respirations: 16 Pulse Ox (%): 91 - Physical Exam General: Alert, Mild distress HEENT: Atraumatic, Normocephalic Neck: Supple Respiratory: Crackles/rales Cardiovascular: Normal pulses, Regular rate/rhythm Gastrointestinal: Soft and benign, W/out hepatosplenomegaly Musculoskeletal: No clubbing, No swelling Integumentary: No rashes Neurological: Other (Alert, Awake ) - Studies Medications List Reviewed: Yes Assessment & Plan Physician Review: Patient Assessed, Agree with Above Assessment and Plan Physician Review Additional Text: Assessment Acute on chronic respiratory failure with hypercapnia and acidosis secondary to COVID 19 pneumonia COPD on chronic home oxygen therapy Diabetes mellitus type 2-insulin dependent Chronic diastolic congestive heart failure Hypertension Hyperlipidemia Bipolar disorder Plan Acute on chronic respiratory failure with hypercapnia and acidosis secondary to COVID 19 pneumonia complicated with COPD on chronic home oxygen therapy: Patient did very well overnight. Patient now on nasal cannula. Patient mentation has improved greatly. Patient tolerating nasal cannula will try to wean down oxygen requirement Possible Dc to [facility] Hypercapnic/hypoxic respiratory failure acute on chronic Will monitor the CO2 levels Appreciate help from pulmonology Continue bronchodilators and inhaled steroids Also on IV steroids Bacteremia with Serratia Blood cultures positive for Serratia gram-negative rods. Continue antibiotics Need to continue antibiotics for further 7 - 10 days Diabetes mellitus type 2-insulin dependent: A.c. HS Accu-Cheks, sliding scale insulin therapy. Have continued patient's long-acting insulin adjusted dose for hospitalization. Chronic diastolic congestive heart failure: Echocardiogram 2019 shows normal ejection fraction, will continue patient's home medications. Continue diuretics and other cardiac meds Hypertension: continue patient's home medications. Titrate as needed Hyperlipidemia: Have continued patient's medications. Bipolar disorder: Continue patient's home medications. Added Xanax 1 mg p.r.n. anxiety. Patient very anxious. Critical Care: No Time Spent Managing Pts Care (In Minutes): 42
--- NOTE | 2020-03-28 16:20 | RAD REPORT ---
EXAM DESCRIPTION: Luis Eduardo Single View03/28/2020 2:58 pm CLINICAL HISTORY: Chest pain COMPARISON: March 24 FINDINGS: Mild worsening in the bilateral pulmonary opacities. The heart remains enlarged IMPRESSION: Mild worsening in bilateral pulmonary opacities likely pneumonia
[2020-03-28] MEDS: MELATONIN 3 MG TABLET PO SCH (19:57)
[2020-03-28] MEDS: DIVALPROEX ER 250 MG TAB PO SCH (20:04)
[2020-03-28] MEDS: INSULIN GLARGINE 100 UNITS/ML SQ SCH (20:05)
[2020-03-28] MEDS: ATORVASTATIN 10 MG TAB PO SCH (20:05)
[2020-03-28] MEDS: THIAMINE 200 MG/2 ML INJ IVP SCH (20:06)
[2020-03-29] MEDS: HYDRALAZINE HCL 20 MG/ML VIAL IV PRN ×3 (00:06→10:56)
[2020-03-29] MEDS: METHYLPREDNISOLONE 125 MG INJ IV SCH ×2 (00:08→09:00)
[2020-03-29] MEDS: IPRATROPIUM BROM 0.5MG/2.5ML NEB SCH ×3 (01:07→13:10)
[2020-03-29] MEDS: LEVOTHYROXINE SOD 0.05 MG TABLET PO SCH (05:06)
[2020-03-29] MEDS: ARFORMOTEROL TARTRATE 15 MCG/2 ML VIAL.NEB NEB SCH (08:22)
[2020-03-29] MEDS: RIVAROXABAN 10 MG TABLET PO SCH (08:37)
[2020-03-29] MEDS: POTASSIUM CL SA 10 MEQ TAB PO SCH (08:38)
[2020-03-29] MEDS: ASCORBIC ACID 500 MG TABLET PO SCH (08:38)
[2020-03-29] MEDS: cloNIDine HCL 0.1 MG TAB PO SCH (08:39)
[2020-03-29] MEDS: BUSPIRONE HCL 5 MG TABLET PO SCH ×2 (08:39→14:19)
[2020-03-29] MEDS: INSULIN -REGULAR HUMAN 50 UNIT/0.5 ML ML SQ SCH ×2 (08:40→11:02)
[2020-03-29] MEDS: FOLIC ACID 1 MG TABLET PO SCH (08:40)
[2020-03-29] MEDS: THIAMINE 200 MG/2 ML INJ IVP SCH (08:41)
[2020-03-29] MEDS: acetaZOLAMIDE 250 MG TAB PO SCH (08:41)
[2020-03-29] MEDS: ZINC SULFATE 220 MG CAP PO SCH (08:41)
[2020-03-29] MEDS: VITAMIN D 1000 UNIT TAB PO SCH (08:41)
[2020-03-29] MEDS: VENLAFAXINE HCL 75 MG TABLET PO SCH (08:41)
[2020-03-29] MEDS: carvediloL 3.125 MG TAB PO SCH (08:41)
[2020-03-29] MEDS: FUROSEMIDE 40 MG TABLET PO SCH (08:42)
[2020-03-29] MEDS: MEMANTINE HCL 10 MG TABLET PO SCH (08:42)
[2020-03-29] MEDS: AMIODARONE HCL 200 MG TAB PO SCH (08:42)
[2020-03-29] MEDS: lisinopriL 20 MG TAB PO SCH (08:42)
[2020-03-29] MEDS: ENSURE HIGH PROTEIN 237 ML CAN PO SCH (08:42)
[2020-03-29 09:52] VITALS: O2SAT 92
[2020-03-29] MEDS: ALPRAZOLAM 0.5 MG TABLET PO PRN (10:55)
--- NOTE | 2020-03-29 11:05 | P.DS ---
Admission Date: 03/24/20 Discharge Date: 03/29/20 Primary Care Provider: alf doctor Disposition: TRANSFER TO [facility] Discharge Condition: FAIR Reason for Admission: Acute respiratory failure, COVID Brief History of Present Illness: 74-year-old male with medical history of diabetes mellitus type 2, COPD on chronic home oxygen, hypertension, hyperlipidemia was brought in by ambulance from the custodial for shortness of breath. Patient was tested positive for COVID on Friday of this week. EMS reported that his oxygen saturation on nasal cannula was 40%. EMS reports that his saturations on nasal cannula werecloser to 80%. Patient was placed on non-rebreather and brought to the emergency department. Upon arrival to the emergency department patient was placed on BiPAP. ABG was drawn. ABG showed pH is 7.2, CO2 87. Patient also appears lethargic and altered to some degree. Patient reported usually be alert, oriented to 2 usually. ED provider wishes to admit patient for further evaluation management Hospital Course: Acute on chronic respiratory failure with hypercapnia and acidosis secondary to COVID 19 pneumonia COPD on chronic home oxygen therapy Diabetes mellitus type 2-insulin dependent Chronic diastolic congestive heart failure Hypertension Hyperlipidemia Bipolar disorder Course The patient was admitted and was monitor closely in ICU, was initially started on oxygen supplementation with BiPAP. Patient was also started on steroids and bronchodilators along with inhaled steroids. Pulmonology was consulted. Co2 levels were monitored as well. The patient responded well and was weaned out of BiPAP and was put on nasal cannula. He was also started with his home m edications as well. For his history of diastolic heart failure continued his home medications and continued on diuretics. his last EF was normal in 2018 . Antihypertensives were titrated. And was started on insulin sliding scale along with long-acting insulin. His blood culture was positive for Serratia and was started on antibiotics. Serratia was shown sensitive to Rocephin, Cefotan, ceftazidime and was started on Omnicef at the time of discharge. Patient responded well to the treatment and wanted to be discharged to custodial He is being discharged in a stable condition with advice to follow up with PCP in 1 week and also with pulmonology in 1-2 weeks Vital Signs/Physical Exam: Temp Pulse Resp BP Pulse Ox 97.6 F 62 17 159/58 H 95 03/29/20 04:00 03/29/20 10:00 03/29/20 10:00 03/29/20 10:00 03/29/20 10:00 General: Alert, In no apparent distress, Obese HEENT: Atraumatic, Normocephalic Neck: Supple Respiratory: Normal air movement Cardiovascular: Regular rate/rhythm, Normal S1 S2 Capillary refill: <2 Seconds Gastrointestinal: Soft and benign, W/out hepatosplenomegaly Musculoskeletal: No clubbing Integumentary: No rashes Neurological: Normal speech, Other (Alert , Awake ) Laboratory Data at Discharge: WBC 8.2 K/uL (4.3-10.9) D 03/28/20 05:20 Hgb 11.1 g/dL (13.6-17.9) L 03/28/20 05:20 Hct 33.6 % (39.6-49.0) L 03/28/20 05:20 Plt Count 149 K/uL (152-406) L 03/28/20 05:20 PT 14.2 SECONDS (9.5-12.5) H 03/24/20 16:44 INR 1.21 03/24/20 16:44 APTT 32.7 SECONDS (24.3-36.9) 03/24/20 16:44 Sodium 131 mmol/L (136-145) L 03/28/20 13:45 Potassium 4.1 mmol/L (3.5-5.1) 03/28/20 13:45 BUN 42 mg/dL (7-18) H 03/28/20 13:45 Creatinine 1.21 mg/dL (0.55-1.3) 03/28/20 13:45 Glucose 297 mg/dL (74-106) H 03/28/20 13:45 Magnesium 1.9 mg/dL (1.8-2.4) 03/28/20 05:20 Total Bilirubin 0.3 mg/dL (0.2-1.0) 03/24/20 16:44 AST 26 U/L (15-37) 03/24/20 16:44 ALT 16 U/L (12-78) 03/24/20 16:44 Alkaline Phosphatase 53 U/L (45-117) 03/24/20 16:44 Lipase 73 U/L (73-393) 03/24/20 16:44 Home Medications: Acetaminophen [Tylenol] 2 tab PO Q6H PRN 03/25/20 Albuterol Neb [Proventil 0.083% Neb Soln] 1 inh IH TID 03/25/20 Amiodarone HCl [Cordarone*] 200 mg PO DAILY 03/25/20 Ascorbic Acid [Vitamin C] 500 mg PO DAILY 03/25/20 Atorvastatin Calcium [Lipitor*] 10 mg PO BEDTIME 03/25/20 Brimonidine [Alphagan P 0.15%*] 1 drop OPTH BID 03/25/20 Budesonide/Formoterol Fumarate [Symbicort 160-4.5 Mcg Inhaler] 2 puff IH DAILY 03/25/20 Buspirone HCl [Buspar] 10 mg PO TID 03/25/20 Carvedilol [Coreg] 6.25 mg PO BID 03/25/20 Cholecalciferol (Vitamin D3) [Vitamin D3] 25 mcg PO DAILY 03/25/20 Clonidine HCl [Catapres] 0.1 mg PO BID 03/25/20 Divalproex Sodium [Divalproex Sodium ER] 500 mg PO BEDTIME 03/25/20 Docusate [Colace Cap*] 2 cap PO BID 03/25/20 Doxepin HCl 25 mg PO BEDTIME PRN 03/25/20 Furosemide [Lasix*] 1 tab PO DAILY 03/25/20 Furosemide [Lasix] 40 mg PO BID 03/25/20 Guaifenesin [Cough Syrup] 10 ml PO Q6H PRN 03/25/20 Insulin Degludec [Tresiba Flextouch U-100] 60 unit SQ BEDTIME 03/25/20 Levothyroxine [Synthroid*] 100 mcg PO [id number] 03/25/20 Lisinopril [Zestril] 20 mg PO DAILY 03/25/20 Magnesium Hydroxide [Milk of Magnesia] 30 ml PO DAILY PRN 03/25/20 Melatonin 2 tab PO BEDTIME 03/25/20 Memantine HCl [Namenda*] 1 tab PO BID 03/25/20 Potassium Chloride [Klor-Con M20] 1 tab PO DAILY 03/25/20 Rivaroxaban [Xarelto*] 20 mg PO DAILY 03/25/20 Sitagliptin Phosphate [Januvia*] 1 tab PO DAILY 03/25/20 Venlafaxine HCl 75 mg PO DAILY 03/25/20 Zinc Sulfate [Zinc Sulfate*] 220 mg PO DAILY 03/25/20 Zino-220 1 cap PO DAILY 03/25/20 acetaZOLAMIDE [Diamox*] 250 mg PO DAILY 03/25/20 predniSONE [Deltasone] 40 mg PO DAILY 03/25/20 Cefdinir [Omnicef] 300 mg PO BID #20 capsule 03/28/20 Methylprednisolone [Medrol dosepack] 4 mg PO DIRECTED #1 adrian 03/28/20 New Medications: Methylprednisolone [Medrol dosepack] 4 mg PO DIRECTED #1 adrian Cefdinir [Omnicef] 300 mg PO BID #20 capsule Diet: Low sodium Followup: Bro Almaguer MD [ACTIVE - CAN ADMIT] - Time spent managing pt's care (in minutes): 40
[2020-03-29] MEDS ORDERED: CEFEPIME 1 GM/10 ML SYR IV SCH (12:45)
[2020-03-29 15:30] VITALS: BP 179/74
[2020-03-29 15:31] VITALS: TEMP 97.9
== END 2020-03-29 14:40 | DRG 177 ==
LOC: ER 13:37 → ERHOLD 15:52 → 3RD-ICU 03-25 01:21
PROVIDERS: ADMIT Family Medicine; ATTEND Family Medicine
PROC: 8E0ZXY6 Isolation (ICD-10-PCS; principal; 2020-03-24)
DX: U07.1 COVID-19 (principal); J12.89 Other viral pneumonia; J96.22 Acute and chronic respiratory failure with hypercapnia; J96.21 Acute and chronic respiratory failure with hypoxia; E87.2 Acidosis; J44.0 Chronic obstructive pulmonary disease with (acute) lower respiratory infection; I50.32 Chronic diastolic (congestive) heart failure; R78.81 Bacteremia; E11.9 Type 2 diabetes mellitus without complications; I11.0 Hypertensive heart disease with heart failure; F31.9 Bipolar disorder, unspecified; E66.9 Obesity, unspecified; F41.9 Anxiety disorder, unspecified; E78.5 Hyperlipidemia, unspecified; B96.89 Other specified bacterial agents as the cause of diseases classified elsewhere; Z99.81 Dependence on supplemental oxygen; Z95.5 Presence of coronary angioplasty implant and graft; Z88.5 Allergy status to narcotic agent; Z91.09 Other allergy status, other than to drugs and biological substances; Z79.4 Long term (current) use of insulin; Z79.890 Hormone replacement therapy; Z79.899 Other long term (current) drug therapy; Z79.52 Long term (current) use of systemic steroids; Z68.34 Body mass index [BMI] 34.0-34.9, adult
CPT/HCPCS: 36415; 51702; 71045; 80048; 80076; 80202; 81015; 82728; 82805; 82947; 83605; 83690; 83735; 84145; 84484; 85025; 85379; 85610; 85730; 86140; 87040; 87070; 87077; 87081; 87086; 87088; 87186; 87205; 87804; 92610; 93005; 94660; 96374; 96375; 99285; J0360; J0692; J0696; J1100; J1815; J2930; J3370; J3411; J7040; J7605

== ENCOUNTER 2020-04-16 00:38 | Inpatient (IN) | payer OTHER ==
--- OUTSIDE RECORDS SUMMARY | 2020-04-16 00:46 | XMS REPORT | Continuity of Care Document ---
:1945 Author Organization [employer] Care Team Providers Name Role Phone [employer] Unavailable Un available Problems Problem Status Onset Classification Date Comments Sourc e Date Reported ABD PAIN Active [facility] 017 ABD PAIN . Active [facility] [address] [facility] 017 LEG WEAKNESS Active [facility] BILATERAL 016 WEAKNESS Active [facility] 016 [facility]: Fatigue 016 Discharge 06/02/2016 [facility] ast Diagnosis: Acute 016 renal insufficiency Discharge 06/02/2016 [facility] Diagnosis: 016 Dehydration AMS Active [facility] 015 [facility]B [facility] Anxiety (finding) Active Problem 06/13/2017 [facility] Arthritis Active Problem 06/13/2017 (disorder) [facility] Bipolar (qualifier Resolved Problem 06/13/2017 value) [facility] HS Outpatient Imaging [facility] Acute congestive Resolved Problem 06/13/2017 heart failure [facility], (disorder) HS Outpatient [facility] Chronic obstructive Resolved Problem 06/13/2017 lung disease [facility] (disorder) [facility] Depressive disorder Active Problem 06/13/2017 (disorder) [facility] Diabetes mellitus Active Problem 06/13/2017 H (disorder) [facility] [place] Gastroesophageal Active Problem 06/13/2017 reflux disease [facility], (disorder) [facility] Glaucoma (disorder) Active Problem 06/13/2017 [facility] 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, 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[facility], arterial (disorder) [facility] Narcosis (finding) Active Problem 06/13/2017 [facility]patient [facility] Schizophrenia Resolved Problem 06/13/2017 (disorder) [facility] Aortic aneurysm Resolved Problem 06/13/2017 [facility] (disorder) Hyperlipidemia Active Problem 06/13/2017 [facility] (disorder) Peptic ulcer with Resolved Problem 06/13/2017 [facility] hemorrhage (disorder) CHR AIRWAY OBSTRUCT Active [facility] NEC ALTERED MENTAL Active [facility] STATUS UNSPECIFIED OPEN Active [facility] WOUND, RIGHT FOOT, SUBS NON-PRS CHRONIC Active [facility] ULCER OTH PRT RIGHT FOOT TYPE 2 DIABETES W Active [facility] DIABETIC PERIPHERAL AN TINEA UNGUIUM Active [facility] TYPE 2 DIABETES Active [facility] MELLITUS WITH DIABETIC P NON-PRS CHRONIC Active [facility] ULCER OTH PRT R FOOT STRE[address] CORNS AND Active [facility] st CALLOSITIES MUSCLE WEAKNESS Active [facility] (GENERALIZED) CHOLECYSTITIS, Active [facility] UNSPECIFIED Medications Medication Details Route Status Patient Ordering Order Source Instructions Provider Date fluconazole 100 mg 200 mg = 2 Active oral tablet tab, PO, 2016 [facility] [id number], 0 Refill(s) Saline Flush 0.9% 10 mL, Route: Inactive IVP, Drug 2016 [facility] Form: INJ, Dosing Weight 118.682, kg, Q8H, Start date: 06/10/17 16:00:00 CDT, Duration: 30 day, Stop date: 07/10/17 8:00:00 PIANO MOVER Lidocaine Notes: Inactive Hydrochloride 10 Preservative 2016 [facility] MG/ML Injectable free. (Same Solution as: Xylocaine MPF) Saline Flush 0.9% Notes: (Same Inactive as: 2016 [facility] Posiflush) Lidocaine 5 mL, Route: Inactive Hydrochloride 10 INTRADERM, 2016 [facility] MG/ML Injectable Dosing Weight Solution 118.682, kg, ONCALL, Start date: 06/10/17 14:00:00 CDT, Duration: 30 day, Stop date: 07/10/17 12:59:00 PIANO MOVER BD Normal Saline Notes: (Same Inactive H Flush as: 2016 [facility] Posiflush) Saline Flush 0.9% Notes: (Same Inactive as: 2016 [facility] Posiflush) Lidocaine Notes: Inactive MH Hydrochloride 10 Preservative 2016 [facility] MG/ML Injectable free. (Same Solution as: Xylocaine MPF) Saline Flush 0.9% Notes: (Same Inactive as: BD 2016 [facility] Posiflush) Protonix Notes: Tablet No Longer should not be Active 2016 [facility] chewed or crushed. (Same as: Protonix) Miralax Notes: No Longer Dissolve in 8 Active 2016 [facility] oz of water or juice. (Same as: Miralax) Maalox Advanced Notes: No Longer Regular Strength (aluminum Active 2016 [place] SUSP hydroxide-magn esium hyd-simethicon e [id number]/5 ml 30 ml ud [place]) Betaxolol 2.5 2 drp, Route: Inactive MG/ML Ophthalmic BOTH EYES, 2016 [facility] Suspension BID, Drug [Betoptic S] form: SUSP, Start date: 06/05/17 17:00:00 CDT, Duration: 30 day, Stop date: 07/05/17 9:00:00 CDT Zosyn Notes: (Same No Longer as: Zosyn) Active 2016 [facility] Dosing based on Piperacillin component MEDICATION WASTE Product Size: 3375 mg Product Wasted: ___ mg Hydralazine Notes: (Same No Longer as: Active 2016 [facility] Apresoline) Push over 5 minutes Diflucan Notes: (Same No Longer as: Diflucan) Active 2016 [facility] Lasix Notes: (Same Inactive as: Lasix) 2017 [facility] Diflucan Notes: (Same No Longer as: Diflucan) Active 2016 [facility] Do not refrigerate Flagyl Notes: (Same No Longer as: Flagyl) Active 2016 [facility] Avoid alcohol. Lovenox 30 mg, Route: Inactive SUB-Q, Drug 2016 [facility] form: INJ, [id number], Dosing Weight 118.682, kg, For CrCl <30mL/min, Start date: 05/30/17 13:00:00 CDT, Duration: 30 day, Stop date: 06/28/17 13:00:00 CDT Buspirone Notes: (Same No Longer As: BuSpar) Active 2016 [facility] Acetaminophen Notes: Do not No Longer exceed 4 Active 2016 [facility] gm/day. (Same as: Tylenol) Dulcolax Laxative Notes: (Same No Longer As: Dulcolax, Active 2016 [facility] Bisco-Lax) timolol ophthalmic Notes: (Same No Longer As: Timoptic, Active 2016 [facility] Betimol) magnesium citrate Notes: (Same Inactive 58.2 MG/ML Oral as: Citrate of 2017 [facility] Solution Magnesia) Concentration: 1.745 gm / 30 mL Albuterol 0.833 Notes: (Same No Longer H MG/ML / as: Duoneb) Active 2016 [facility] Ipratropium [place] 0.167 MG/ML Inhalant Solution Budesonide 0.25 Notes: (Same No Longer H MG/ML Inhalant As: Pulmicort) Active 2016 [facility] Solution [Pulmicort] Budesonide 0.25 Notes: (Same No Longer H MG/ML Inhalant As: Pulmicort) Active 2016 [facility] Solution [Pulmicort] Dextrose 50% in 50 mL, Route: No Longer Water IV IVP, Start Active 2016 [facility] date: 05/24/17 19:24:00 CDT, Stop date: 05/24/17 19:24:00 CDT Dextrose 25 gm, Route: Inactive IVPB, ONCE, 2016 [facility] Dosing Weight 118.682, kg, Start date: 05/24/17 18:34:00 CDT, Stop date: 05/24/17 18:34:00 CDT Insulin regular 15 unit, Inactive Route: IV, 2016 [facility] ONCE, Dosing Weight 118.682, kg, Priority: [...] Longer H vaccine, as: Fluzone Active 2016 [facility] inactivated Quadrivalent, Fluarix Quadrivalent) For 3 years of age and older (0.5 mL IM) Shake well before use Januvia Notes: (Same No Longer as: Januvia) Active 2016 [facility] omega-3 Notes: (Same No Longer polyunsaturated as: MaxEPA, Active 2016 [facility] fatty acids [place] 3 fish oil ) Non-Formulary Drug Vitamin D3 Notes: Same as No Longer : Vitamin D3 Active 2016 [facility] venlafaxine Notes: (Same No Longer As: Effexor) Active 2016 [facility] Albuterol 0.833 Notes: (Same No Longer H MG/ML / as: Duoneb) Active 2016 [facility] Ipratropium [place] 0.167 MG/ML Inhalant Solution [DuoNeb] tiotropium 0.018 Notes: (Same Inactive H MG/ACTUAT Inhalant As: Spiriva). 2016 [facility] Powder [Spiriva] Thyroxine Notes: Take 1 No Longer hour before or Active 2016 [facility] 2 hours after meal; Enteral feeds may interefere with the absorption of this medication.([facility] as:Levothroid, Synthroid) Trazodone Notes: (Same No Longer As: Desyrel) Active 2016 [facility] Risperidone Notes: (Same No Longer as: Risperdal) Active 2016 [facility] latanoprost 0.05 Notes: Keep No Longer H MG/ML Ophthalmic refrigerated. Active 2016 [facility] Solution (Same as:Xalatan) Opened bottle may be stored at room temperature for 6 weeks Insulin Glargine Notes: (Same No Longer 100 UNT/ML as: Lantus) Do Active 2016 [facility] ast Injectable not hold Solution [Lantus] insulin without contacting prescriber WASTE: F/P - Black; E - Municipal Trash Bin "single patient use only" Fenofibrate Notes: (Same No Longer as: Tricor) Active 2016 [facility] 24 HR Divalproex Notes: (Same No Longer Sodium 500 MG as: Depakote Active 2016 [place] Extended Release ER) Once Tablet daily dosing; indicated for migraines. Divalproex sodium extended-relea se tab. Do not chew or crush. "Do Not Crush" Ipratropium Notes: SEE RT No Longer DOCUMENTATION Active 2016 [facility] (Same as:Atrovent) Zosyn + sodium Notes: (Same No Longer chloride 0.9% INJ as: Zosyn) Active 2016 [facility] theast 100 mL Dosing based on Piperacillin component MEDICATION WASTE Product Size: 3375 mg Product Wasted: ___ mg Brimonidine Notes: (Same No Longer tartrate 1.5 MG/ML As: Alphagan) Active 2016 [facility] Ophthalmic Solution Betaxolol 2.5 2 drp, Route: No Longer MG/ML Ophthalmic BOTH EYES, Active 2016 [facility] Suspension BID, Drug [Betoptic S] form: SUSP, Start date: 05/23/17 17:00:00 CDT, Duration: 30 day, Stop date: 06/22/17 9:00:00 CDT Symbicort 160/4.5 Notes: (Same No Longer inhalation aerosol as: Symbicort) Active 2016 [facility] with adapter WASTE: Aerosol - Return to Pharmacy Zosyn 2.25 gm, Inactive Route: IV, 2016 [facility] Q8H, Dosing Weight 109.545, kg, Start date: 05/23/17 16:00:00 CDT, Duration: 30 day, Stop date: 06/22/17 8:00:00 CDT, ABX Indication: Intra-abdomina l Infection metoprolol Notes: (Same No Longer tartrate as: Lopressor) Active 2016 [facility] Zosyn 2.25 gm, Inactive Route: IVPB, 2016 [facility] Drug form: PDR/INJ, [id number], Dosing Weight 118.682, kg, Start date: 05/23/17 13:00:00 CDT, Duration: 10 day, Stop date: 06/02/17 5:00:00 CDT, ABX Indication: Intra-abdomina l Infection Buspirone Notes: (Same No Longer As: BuSpar) Active 2016 [facility] Aspirin Notes: Do not No Longer crush or chew. Active 2016 [facility] (Same As: Ecotrin) Amlodipine Notes: (Same No Longer as: Norvasc) Active 2016 [facility] Amiodarone Notes: (Same No Longer as: Cordarone) Active 2016 [facility] Alprazolam Notes: With No Longer food or milk Active 2016 [facility] (Same as: Xanax) Insulin Lispro 60 units) No Longer WASTE: F/P - Active 2016 [facility] Black; E - Municipal Trash Bin Stable for 28 days at room temperature. Expires in days from Date Dextrose 50% 12.5 gm, 25 No Longer Syringe mL, Route: Active 2016 [facility] IVP, Drug Form: INJ, Dosing Weight 118.682, kg, PRN, PRN Blood Glucose Results, Start date: 05/23/17 12:40:00 CDT, Duration: 30 day, Stop date: 06/22/17 12:39:00 CDT Glucagon 1 mg, Route: No Longer IM, Drug form: Active 2016 [facility] PDR/INJ, PRN, Dosing Weight 118.682, kg, PRN Blood Glucose Results, Start date: 05/23/17 12:40:00 CDT, Duration: 30 day, Stop date: 06/22/17 12:39:00 CDT Baclofen Notes: (Same No Longer As: Lioresal) Active 2016 [facility] Aspirin 81 MG 81 mg = 1 tab, No Longer 05/23/ H Chewable Tablet PO, Daily, Active 2016 [place] tab, 0 Refill(s) 24 HR Divalproex 500 mg = 1 Active Sodium 500 MG tab, PO, 2016 [facility] Extended Release Bedtime, # 30 Tablet [...] mL, No Longer Route: IVP, Active 2016 [facility] Drug form: SOLN, Q4H, Dosing Weight 109.545, kg, PRN Pain Score 7-10, Priority: STAT, Start date: 05/23/17 9:57:00 CDT, Stop date: 06/22/17 9:56:00 CDT Zofran Notes: (Same No Longer as: Zofran) Active 2016 [facility] MEDICATION WASTE Product Size: 4 mg Product Wasted: ___ mg Morphine 4 mg, Route: Inactive IVP, ONCE, 2016 [facility] Dosing Weight 109.545, kg, Priority: STAT, Start date: 05/23/17 9:27:00 CDT, Stop date: 05/23/17 9:27:00 CDT Omnipaque 300 45 mL/min, Inactive injectable STAT, Start 2016 [facility] solution date: 05/23/17 6:50:00 CDT, Duration: 1 doses or times Morphine Notes: (Same Inactive as:MORPhine 2016 [facility] Sulfate) Saline Flush 0.9% Notes: (Same No Longer as: BD Active 2016 [facility] Posiflush) tiotropium 0.018 Notes: (Same No Longer MG/ACTUAT Inhalant As: Spiriva). Active 2015 [facility] Powder [Spiriva] One-A-Day Men 50 1 tab, Route: No Longer Plus PO, Dosing Active 2015 [facility] Weight 109.545, kg, Daily, Start date: 07/29/16 9:00:00 PIANO MOVER, Duration: 30 day, Stop date: 08/27/16 9:00:00 PIANO MOVER Aspirin 81 mg, Route: No Longer PO, Daily, Active 2015 [facility] Dosing Weight 109.545, kg, Start date: 07/29/16 9:00:00 PIANO MOVER, Duration: 30 day, Stop date: 08/27/16 9:00:00 PIANO MOVER Levemir FlexPen Notes: Same as No Longer Levemir Do not Active 2015 [facility] hold insulin without contacting prescriber WASTE: F/P - Black; E - Municipal Trash Bin "single patient use only" Trazodone Notes: (Same No Longer As: Desyrel) Active 2015 [facility] Risperidone Notes: (Same No Longer as: Risperdal) Active 2015 [facility] latanoprost 0.05 Notes: Keep No Longer H MG/ML Ophthalmic refrigerated. Active [facility] Solution (Same as:Xalatan) Insulin Glargine 30 unit, Inactive 100 UNT/ML Route: SUB-Q, 2015 [facility] Injectable Drug form: Solution [Lantus] SOLN, Bedtime, Dosing Weight 109.545, kg, Start date: 07/28/16 21:00:00 PIANO MOVER, Duration: 30 day, Stop date: 08/26/16 21:00:00 PIANO MOVER Docusate Sodium Notes: (Same No Longer H 100 MG Oral as: Colace) Active 2015 [facility] t Capsule (Do Not Crush) Brimonidine Notes: (Same No Longer tartrate 1.5 MG/ML As: Alphagan) Active 2015 [facility] Ophthalmic Solution Betaxolol 2.5 2 drp, Route: Inactive MG/ML Ophthalmic BOTH EYES, 2015 [facility] Suspension BID, Drug [Betoptic S] form: SUSP, Start date: 07/28/16 17:00:00 PIANO MOVER, Duration: 30 day, Stop date: 08/27/16 9:00:00 PIANO MOVER timolol ophthalmic Notes: (Same No Longer As: Timoptic, Active 2015 [facility] Betimol) Buspirone Notes: (Same No Longer As: BuSpar) Active 2015 [facility] Ipratropium 500 microgram, Inactive Route: NEB, 2015 [facility] QID, Dosing Weight 109.545, kg, Start date: 07/28/16 13:00:00 PIANO MOVER, Duration: 30 day, Stop date: 08/27/16 9:00:00 PIANO MOVER Alprazolam 0.5 mg, Route: Inactive PO, TID, 2015 [facility] Dosing Weight 109.545, kg, Start date: 07/28/16 13:00:00 PIANO MOVER, Duration: 30 day, Stop date: 08/27/16 9:00:00 PIANO MOVER Thyroxine Notes: Take 1 No Longer hour before or Active 2015 2 hours after meal; Enteral feeds may interefere with the absorption of this medication.([facility] as:Levothroid, Synthroid) multivitamin with Notes: Give No Longer minerals with food. Active 2015 [facility] (Same As: Stress 600 with Zinc) WASTE: F/P - Black; E - Municipal Trash Bin omega-3 Notes: (Same No Longer polyunsaturated as: [place], Active 2015 [facility] fatty acids formally named [place]) "Do Not Crush" Lisinopril Notes: (Same No Longer as: Prinivil, Active 2015 [facility] Zestril) metoprolol Notes: (Same No Longer tartrate as: Lopressor) Active [facility] Furosemide Notes: (Same No Longer as: Lasix) Active 2015 [facility] May cause GI upset. Give with food or milk. Fenofibrate Notes: (Same No Longer as: Tricor) Active 2015 [facility] Vitamin D3 Notes: Same as No Longer : Vitamin D3 Active 2015 [facility] Vitamin C Notes: (Same No Longer as: Vitamin C) Active 2015 [facility] Amlodipine Notes: (Same No Longer as: Norvasc) Active 2015 [facility] Amiodarone Notes: (Same No Longer as: Cordarone) Active 2015 [facility] venlafaxine Notes: (Same No Longer As: Effexor) Active 2015 [facility] Symbicort 160/4.5 Notes: (Same No Longer inhalation aerosol as: Symbicort) Active 2015 [facility] with adapter WASTE: Aerosol - Return to Pharmacy Insulin, Aspart, Notes: Roll in No Longer Human palms of hands Active 2015 [facility] gently; Do not shake vigorously. (Same as: NovoLOG) "single patient use only" WASTE: F/P - Black; E - Municipal Trash Bin Stable for 28 days at room temperature. Expires in days from Date Dextrose 50% 12.5 gm, 25 No Longer Syringe mL, Route: Active 2015 [facility] IVP, Drug Form: INJ, Dosing Weight 109.545, kg, PRN, PRN Blood Glucose Results, Start date: 07/28/16 10:01:00 PIANO MOVER, Duration: 30 day, Stop date: 08/27/16 10:00:00 PIANO MOVER Glucagon 1 mg, Route: No Longer IM, Drug form: Active 2015 [facility] PDR/INJ, PRN, Dosing Weight 109.545, kg, PRN Blood Glucose Results, Start date: 07/28/16 10:01:00 PIANO MOVER, Duration: 30 day, Stop date: 08/27/16 10:00:00 PIANO MOVER Enoxaparin Notes: (Same No Longer as: Lovenox) Active 2015 [facility] Baclofen Notes: (Same No Longer As: Lioresal) Active 2015 [facility] Saline Flush 0.9% Notes: (Same No Longer as: BD Active 2015 [facility] Posiflush) aspirin 81 mg Notes: Do not No Longer tablet, enteric crush or chew. Active 2015 [facility] coated (Same As: Ecotrin) Famotidine Notes: (Same No Longer as: Pepcid) Active 2015 [facility] Alprazolam 0.5 MG Notes: With No Longer Oral Tablet food or milk Active [address] [facility] [address] [Xanax] (Same as: Xanax) Saline Flush 0.9% Notes: (Same No Longer as: BD Active 2015 [facility] Posiflush) Ondansetron Notes: (Same No Longer as: Zofran) 2015 [facility] MEDICATION WASTE Product Size: 4 mg Product Wasted: ___ mg Sodium Chloride 1,000 mL, No Longer 0.154 MEQ/ML Rate: 40 Active 2015 [facility] Injectable ml/hr, Infuse Solution over: 25 hr, Route: IV, Dosing Weight 97.273 kg, Total Volume: 1,000, Start date: 07/28/16 1:29:00 PIANO MOVER, Stop date: 08/27/16 1:28:00 PIANO MOVER Aspirin Notes: Take No Longer with food. Active 2015 [facility] Sodium Chloride 1,000 mL, Inactive 0.154 MEQ/ML 1,000 ml/hr, 2016 [facility] ast Injectable Infuse Over: 1 Solution hr, Route: IV, 1,000, Drug form: INJ, ONCE, Priority: STAT, Dosing Weight 97.727 kg, Start date: 05/30/16 10:49:00 CDT, Duration: 1 doses or times, Stop date: 05/30/16 10:49:00 CDT Fenofibrate 200 mg, Route: No Longer PO, Daily, Active 2014 [facility] Dosing Weight 120, kg, Start date: 02/18/15 9:00:00, Duration: 30 day, Stop date: 03/19/15 9:00:00 pantoprazole Notes: Tablet No Longer should not be Active 2014 [facility] chewed or crushed. (Same as: Protonix) Thyroxine Notes: Take 1 No Longer hour before or Active 2014 [facility] 2 hours after meal; Enteral feeds may interefere with the absorption of this medication.([facility] as:Levothroid, Synthroid) Alprazolam Notes: With Inactive food or milk 2014 [facility] (Same as: Xanax) TriCor Notes: (Same No Longer as: Tricor) Active 2014 [facility] Risperidone Notes: (Same No Longer as: Risperdal) Active 2014 [facility] Lisinopril Notes: (Same No Longer as: Prinivil, Active 2014 [facility] Zestril) latanoprost 0.05 Notes: Keep No Longer 06// H MG/ML Ophthalmic refrigerated. Active 2014 [facility] Solution (Same as:Xalatan) Lantus 30 unit, Inactive Route: SUB-Q, 2014 [facility] Bedtime, Dosing Weight 120, kg, Start date: 02/17/15 21:00:00, Duration: 30 day, Stop date: 03/18/15 21:00:00 Levemir FlexPen Notes: Same as No Longer Levemir Do not Active 2014 [facility] hold insulin without contacting prescriber "single patient use only" Saline Flush 0.9% Notes: (Same No Longer as: BD Active 2014 [facility] Posiflush) Docusate Notes: (Same No Longer as: Colace) Active 2014 [facility] (Do Not Crush) normal saline 0.9% 1,000 mL, No Longer 02/18/ H IV 1,000 mL Rate: 200 Active 2014 [facility] ml/hr, Infuse over: 5 hr, Route: IV, Dosing Weight 120 kg, Total Volume: 1,000, Start date: 02/17/15 20:44:00, Duration: 30 day, Stop date: 03/19/15 20:43:00 Symbicort 160/4.5 Notes: (Same No Longer inhalation aerosol as: Symbicort) Active 2014 [facility] with adapter Sodium Chloride 1,000 mL, Inactive 0.154 MEQ/ML 1,000 ml/hr, 2014 [facility] ast Injectable Infuse Over: 1 Solution hr, Route: IV, ONCE, Priority: STAT, Dosing Weight 120 kg, Start date: 02/17/15 19:00:00, Duration: 1 doses or times, Stop date: 02/17/15 19:00:00 Albuterol 0.833 Notes: (Same No Longer H MG/ML / as: Duoneb) Active 2014 [facility] Ipratropium [place] 0.167 MG/ML Inhalant Solution Lactulose Notes: (Same No Longer as:Chronulac) Active 2014 [facility] Enoxaparin Notes: (Same No Longer as: Lovenox) Active 2014 [facility] Brimonidine Notes: (Same No Longer tartrate 1.5 MG/ML as: Active 2014 [place] Op[facility]mic Alphagan-P) Solution Betaxolol 2.5 Notes: (Same No Longer MG/ML Ophthalmic As: Betoptic Active 2014 [facility] Suspension S) [Betoptic S] Aspirin Notes: Take No Longer with food. Active 2014 [facility] Vitamin C Notes: (Same No Longer as: Vitamin C) Active 2014 [facility] Amlodipine Notes: (Same No Longer as: Norvasc) Active 2014 [facility] Amiodarone Notes: (Same No Longer as: Cordarone) Active 2014 [facility] Alprazolam Notes: With No Longer food or milk Active 2014 [facility] (Same as: Xanax) venlafaxine Notes: (Same No Longer As: Effexor) Active 2014 [facility] Januvia Notes: (Same No Longer as: Januvia) Active 2014 [facility] docusate sodium Notes: (Same No Longer H 100 mg oral as: Colace) Active 2014 [facility] t capsule (Do Not Crush) dexmedetomidine Notes: (Same No Longer H 200 microgram as: Precedex) Active 2014 [facility] heast potassium Notes: (Same No Longer phosphate + Sodium as: K Active 2014 [place] Chloride 0.9% IV Phosphate.) 1 250 mL mMol phoshate has 1.47 mEq potassium Infuse over 4 hours sodium phosphate + Special No Longer Sodium Chloride Instructions: Active 2014 [facility] 0.9% IV 250 mL FOR ICU USE ONLY potassium chloride Notes: (Same No Longer as: Potassium Active 2014 [facility] Chloride) Calcium Carbonate Notes: (Same No Longer 500 MG Chewable As: Tums) Active 2014 [facility] ast Tablet Calcium Carbonate 500 mg = 200 mg elemental calcium Dose = mg calcium carbonate ( mg elemental calcium) Magnesium Oxide Notes: (Same No Longer H as: Mag-Ox Active 2014 [facility] 400) Magnesium oxide [id number] elemental magnesium Dose=____mg magnesium oxide (___mg elemental magnesium) Calcium Gluconate Special No Longer Instructions: Active 2014 [facility] FOR ICU USE ONLY Neutra-Phos Notes: (Same No Longer as: Active 2014 [facility] Neutra-Phos) Each 1.25 gm pkt has [...] MG/ML / as: Duoneb) Active 2014 Ipratropium [place] 0.167 MG/ML Inhalant Solution Bisacodyl Notes: (Same [...] No Longer tartrate as: Lopressor) Active 2014 [facility] t Lorazepam Notes: (Same No Longer as: Ativan) Active 2014 [facility] Sodium Chloride 3% Notes: Inactive (Hypertonic) [...] mL, Inactive 0.154 MEQ/ML 1,000 ml/hr, 2014 [facility] ast Injectable Infuse Over: 1 Solution Hour, [...] = 1 Active polyunsaturated cap, PO, [address] [facility] [address] fatty acids 1000 Daily, 0 mg [...] tartrate 1.5 MG/ML EYES, BID, 0 2014 [facility] Ophthalmic Refill(s) Solution Symbicort 160/4.5 2 puff, Active inhalation aerosol INHALATION, 2014 [facility] with adapter BID, 0 Refill(s) tiotropium 0.018 18 microgram, Active H MG/ACTUAT Inhalant INHALATION, 2014 [facility] Powder [Spiriva] Daily, 0 Refill(s) Ipratropium 500 microgram, Active NEB, QID, 0 2014 [facility] Refill(s) Humalog 10 unit, Active SUB-Q, 2014 [facility] TID-Before Meals, 0 Refill(s) Lantus 30 unit, Active SUB-Q, 2014 Bedtime, 0 Refill(s) busPIRone 5 mg 5 mg = 1 tab, Active oral tablet PO, TID, 0 2014 [facility] Refill(s) venlafaxine 75 mg 75 mg = 1 tab, Active oral tablet PO, Daily, 0 [address] [facility] [address] Refill(s) Alprazolam 1 mg, PO, No Longer Bedtime, 0 Active 2014 [facility] Refill(s) docusate sodium 200 mg = 2 Active 100 mg oral cap, PO, BID, 2014 [facility] ast capsule 0 Refill(s) Saline Flush 0.9% Notes: (Same Inactive as: BD 2014 [facility] Posiflush) Naloxone Notes: Same as Inactive Narcan 2014 [facility] Albuterol 0.833 3 ml, Active MG/ML / INHALATION, 2013 [facility] Ipratropium QID, # 60 ea, [place] 0.167 0 Refill(s) MG/ML Inhalant Solution [DuoNeb] {21 Special Active (Methylprednisolon Instructions: 2013 [facility] e 4 MG Oral Tablet Take with or [Medrol]) } Pack without food [Medrol Dosepak] Doxycycline 100 MG 100 mg = 1 Active Oral Capsule cap, PO, 2013 [facility] [id number], # 14 cap, 0 Refill(s) Prednisone Notes: Take Inactive with food. 2013 [facility] Budesonide 0.25 Notes: (Same No Longer H MG/ML Inhalant As: Pulmicort) Active 2013 [facility] Solution [Pulmicort] Azithromycin Notes: Same No Longer as: Zithromax Active 2013 [facility] Fenofibrate Notes: (Same No Longer as: Tricor) Active 2013 [facility] Effexor XR Notes: Do not No Longer open, crush, Active 2013 [facility] or chew. (Same As: Effexor XR) One-A-Day Men 50 Notes: Give No Longer H Plus with food. Active 2013 [facility] (Same As: Stress 600 with Zinc) Influenza Virus Notes: (Same Inactive Vaccine, as: Fluzone 2013 [facility] Inactivated Quadrivalent) M-[id number]-20 (H3N2)-like virus ([id number] [facility] X-175C) strain / Influenza Virus Vaccine, Inactivated [id number] , IVR-148 (H1N1) strain / Influenza Virus Vaccine, Inactivated, N-Dqhdhes-3-2006-l ik Furosemide Notes: (Same No Longer as: Lasix) Active 2013 [facility] May cause GI upset. Give with food or milk. Docusate Notes: (Same No Longer as: Colace) Active 2013 [facility] (Do Not Crush) Vitamin D3 Notes: Same as No Longer Vitamin D3 Active 2013 [facility] aspirin Notes: Take No Longer with food. Active 2013 [facility] Amlodipine Notes: (Same No Longer as: Norvasc) Active 2013 [facility] Amiodarone Notes: (Same No Longer as: Cordarone) Active 2013 [facility] Alprazolam Notes: With No Longer food or milk Active 2013 [facility] (Same as: Xanax) Enoxaparin Notes: (Same No Longer as: Lovenox) Active 2013 [facility] Thyroxine Notes: Take 1 No Longer hour before or Active 2013 [facility] 2 hours after meal; Enteral feeds may interefere with the absorption of this medication. (Same as:Levothroid) Albuterol 0.833 Notes: (Same No Longer H MG/ML / as: Duoneb) Active 2013 [facility] Ipratropium [place] 0.167 MG/ML Inhalant Solution methylPREDNISolone Notes: (Same No Longer SODium SUCCinate as:Solu-MEDROL Active 2013 [facility] , A-Methapred) Doxycycline Notes: NO No Longer MILK/ANTACIDS/ Active 2013 [facility] IRON Take 1 hour before or 2 hours after dairy products Levemir Notes: Same as No Longer Levemir Active 2013 [facility] "single patient use only" Trazodone Notes: (Same No Longer As: Desyrel) Active 2013 [facility] Risperidone Notes: (Same No Longer as: Risperdal) Active 2013 [facility] metoprolol Notes: (Same No Longer tartrate as: Lopressor) Active 2013 [facility] Lisinopril Notes: (Same No Longer as: Prinivil, Active 2013 [facility] Zestril) Alprazolam Notes: With No Longer food or milk Active 2013 [facility] (Same as: Xanax) Insulin, Aspart, Notes: Roll in No Longer Human palms of hands Active 2013 [facility] gently; Do not shake vigorously. (Same as: NovoLOG) "single patient use only" Stable for 28 days at room temperature. Expires in days from Date Glucagon 1 mg, Route: No Longer IM, Drug form: Active 2013 [facility] PDR/INJ, PRN, Dosing Weight 110.966, kg, PRN Blood Glucose Results, Start date: 06/08/14 23:33:00, Duration: 30 day, Stop date: 07/08/14 22:32:00 Dextrose 50% 25 gm, 50 mL, No Longer Syringe Route: IVP, Active 2013 [facility] Drug Form: INJ, Dosing Weight 110.966, kg, PRN, PRN Blood Glucose Results, Start date: 06/08/14 23:33:00, Duration: 30 day, Stop date: 07/08/14 22:32:00 Baclofen Notes: (Same No Longer As: Lioresal) Active 2013 [facility] Albuterol 0.83 Notes: SEE RT No Longer H MG/ML Inhalant DOCUMENTATION Active 2013 [facility] Non-Formulary Home Special Active Medication Instructions: [address] Unknown eye drops; [facility] [place] aspirin 81 mg, PO, Active Daily 2013 [facility] Vitamin D3 200 IntlUnit, Active PO, Daily 2013 [facility] One-A-Day Men 50 1 tab, PO, Active Plus Daily 2013 [facility] Docusate 100 mg, PO, Active Daily 2013 [facility] Thyroxine 25 microgram, Active PO, Daily 2013 [facility] Januvia 50 mg, PO, Active Daily 2013 [facility] Fenofibrate 200 mg, PO, Active Daily 2013 [facility] Amlodipine 10 mg, PO, Active Daily 2013 [facility] Baclofen 10 mg, PO, Active Q8H, as needed 2013 [facility] for muscle spasm Risperidone 2 mg, PO, Active Bedtime 2013 [facility] Lisinopril 20 mg, PO, BID Active 2013 [facility] Trazodone 50 mg, PO, Active Bedtime 2013 [facility] Alprazolam 1 mg, PO, Active Bedtime 2014 [facility] Alprazolam 0.5 mg, PO, Active TID 2013 [facility] Furosemide 20 mg, PO, Active Daily 2013 [facility] Zithromax Notes: Same Inactive as: Zithromax 2013 [facility] Albuterol 0.833 Notes: (Same Inactive MG/ML / as: Duoneb) 2013 [facility] Ipratropium [place] 0.167 MG/ML Inhalant Solution [DuoNeb] Saline Flush 0.9% Notes: (Same No Longer as: BD Active 2013 [facility] Posiflush) Allergies, Adverse Reactions, Alerts Substance [...] completed [place] [facility] vaccine, 4 [facility] [place], [facility] inactivated S Outpat ient Imaging [facility] Results Order Name Results Value Reference Date Interpretation Comments Ita rce Range CHEM PANEL eGFR 83 06/09 Result Comment: The [facility] eGFR is calculated using the CKD-EPI [...] Calcium Lvl 9.0 8.5 - 10.5 06/09 [facility] CHEM PANEL AGAP 8.0 10.0 - 06/09 MH 20.0 [facility] CHEM PANEL Creatinine 0.91 0.50 - [...] 4.0 3.5 - 5.1 06/09 MH Lvl [facility] HEMATOLOGY Basophils 0.9 0.0 - 1.0 06/09 [facility] HEMATOLOGY Segs-Bands # 5.6 1.5 - 8.1 06/09 [facility] HEMATOLOGY Monocytes # 1.2 0.0 - 0.8 06/09 [facility] HEMATOLOGY Lymphocytes 1.2 1.0 - 5.5 06/09 MH # /2016 [facility] HEMATOLOGY Basophils # 0.1 0.0 - 0.2 06/09 /2016 [facility] HEMATOLOGY Eosinophils 0.2 0.0 - 0.5 10 MH # /2017 [facility] HEMATOLOGY Eosinophils 2.0 0.0 - 4.0 06/09 [facility] HEMATOLOGY Monocytes 14.8 2.0 - 12.0 06/09 [facility] HEMATOLOGY Lymphocytes 14.9 20.0 - 06/09 MH 40.0 /2017 [facility] HEMATOLOGY Segs 67.4 45.0 - 06/09 MH 75.0 /2017 [facility] HEMATOLOGY RDW 14.4 11.5 - 10 MH 14.5 [facility] HEMATOLOGY Platelet 324 133 - 450 06/09 [facility] HEMATOLOGY MPV 8.9 7.4 - 10.4 06/09 [facility] HEMATOLOGY MCHC 33.7 32.0 - 06/09 MH 36.0 [facility] HEMATOLOGY RBC 3.48 4.70 - 06/09 MH 6.10 [facility] HEMATOLOGY Hgb 10.5 14.0 - 06/09 MH 18.0 [facility] HEMATOLOGY MCV 89.8 80.0 - 06/09 MH 94.0 [facility] HEMATOLOGY Hct 31.2 42.0 - 06/09 MH 54.0 [facility] HEMATOLOGY MCH 30.2 27.0 - 06/09 MH 31.0 [facility] HEMATOLOGY WBC 8.4 3.7 - 10.4 06/09 [facility] ELECTROLYT AGAP 6.7 10.0 - 06/05 ES 20.0 [facility] ELECTROLYT B/C Ratio 17 6 - 25 06/05 [facility] ELECTROLYT Globulin 3.5 2.7 - 4.2 06/05 ES [facility] ELECTROLYT A/G Ratio 0.5 0.7 - 1.6 06/05 ES [facility] ELECTROLYT eGFR 85 06/05 Result Comment: The [facility] eGFR is calculated using the CKD-EPI [...] Phos 38 39 - 136 06/05 ES [facility] ELECTROLYT Bili Total 0.3 0.2 - 1.3 06/05 ES [place] ELECTROLYT Creatinine 0.88 0.50 - 06/05 MH ES Lvl 1.40 /2016 [facility] ELECTROLYT Sodium Lvl 136 135 - 145 06/05 ES [place] ELECTROLYT Potassium 3.7 3.5 - 5.1 06/05 ES Lvl [place] ELECTROLYT Chloride Lvl 97 95 - 109 06/05 [place] ELECTROLYT BUN 15 7 - 22 06/05 ES [facility] ELECTROLYT Glucose Lvl 135 70 - 99 06/05 [facility] HEMATOLOGY Platelet 327 133 - 450 06/05 [facility] HEMATOLOGY MPV 8.6 7.4 - 10.4 06/05 [facility] HEMATOLOGY Hct 30.7 42.0 - 06/05 MH 54.0 /2017 [facility] HEMATOLOGY MCV 88.8 80.0 - 06/05 94.0 [facility] HEMATOLOGY RBC 3.46 4.70 - 06/05 MH 6.10 [facility] HEMATOLOGY Hgb 10.4 14.0 - 06/05 MH 18.0 [facility] HEMATOLOGY RDW 14.2 11.5 - 06/05 MH 14.5 [facility] HEMATOLOGY MCHC 33.8 32.0 - 06/05 MH 36.0 [facility] HEMATOLOGY MCH 30.0 27.0 - 06/05 MH 31.0 /2017 [facility] HEMATOLOGY WBC 11.4 3.7 - 10.4 06/05 [facility] HEMATOLOGY Monocytes # 1.5 0.0 - 0.8 06/05 [facility] HEMATOLOGY Eosinophils 0.2 0.0 - 0.5 06/05 # /2017 [facility] HEMATOLOGY Lymphocytes 1.3 1.0 - 5.5 06/05 MH # /2016 [facility] HEMATOLOGY Segs-Bands # 8.3 1.5 - 8.1 06/05 [place] HEMATOLOGY Eosinophils 2.0 0.0 - 4.0 06/05 [place] HEMATOLOGY Monocytes 13.2 2.0 - 12.0 06/05 [place] HEMATOLOGY Lymphocytes 11.1 20.0 - 06/05 MH 40.0 /2016 [facility] HEMATOLOGY Segs 73.2 45.0 - 06/05 MH 75.0 /2017 [facility] HEMATOLOGY Basophils # 0.1 0.0 - 0.2 06/05 [facility] HEMATOLOGY Basophils 0.5 0.0 - 1.0 06/05 [facility] CHEM PANEL B/C Ratio 15 6 - 25 10 [facility] CHEM PANEL Globulin 3.7 2.7 - 4.2 06/04 [facility] CHEM PANEL A/G Ratio 0.5 0.7 - 1.6 06/04 [facility] CHEM PANEL AGAP 10.8 10.0 - 06/04 MH 20.0 /2016 [facility] CHEM PANEL eGFR 83 10 Comment: The [facility] eGFR is calculated using the CKD-EPI [...] Glucose Lvl 145 70 - 99 06/04 [facility] HEMATOLOGY Spherocyte Moderate None Seen 06/04 *ABN* [facility] (06/04/17 10:09 AM) HEMATOLOGY RBC Morph Normal 06/04 (06/04/17 10:09 AM) [place] HEMATOLOGY Large Plt Moderate None Seen 06/04 *ABN* [facility] (06/04/17 10:09 AM) HEMATOLOGY Toxic Gran Moderate None Seen 06/04 *ABN* /2016 [facility] (06/04/17 10:09 AM) HEMATOLOGY Lymphocytes 8.0 20.0 - 06/04 40.0 [facility] HEMATOLOGY Bands 4.0 0.0 - 11.0 06/04 [facility] HEMATOLOGY Atypical 0.0 <=0.0 % 06/04 Lymphs [facility] HEMATOLOGY Eosinophils 1.0 0.0 - 4.0 06/04 [facility] HEMATOLOGY Monocytes 7.0 2.0 - 12.0 06/04 [facility] HEMATOLOGY Segs 80.0 45.0 - 06/04 [...] RBC Morph Normal 06/03 (06/03/17 3:40 PM) [facility] ast HEMATOLOGY Plt Morph Normal 06/03 (06/03/17 3:40 PM) [place] [facility] HEMATOLOGY Basophils # 0.1 0.0 - 0.2 06/03 [facility] HEMATOLOGY Metamyelocyt 2.0 0.0 - 1.0 05/31 es [place] HEMATOLOGY Atypical 0.0 <=0.0 % 05/31 Lymphs /2016 [facility] HEMATOLOGY Bands 10.0 0.0 - 11.0 05/31 [facility] HEMATOLOGY Plt Morph Normal 05/31 (05/31/17 4:41 AM) [place] [facility] HEMATOLOGY RBC Morph Normal 05/31 (05/31/17 4:41 AM) /2016 [place] [facility] HEMATOLOGY Toxic Gran Moderate None Seen 05/31 *ABN* /2016 [facility] (05/31/17 4:41 AM) HEMATOLOGY Tot Cell Ct 100 05/31 [facility] CHEM PANEL B/C Ratio 38 6 - 25 05/29 [facility] CHEM PANEL A/G Ratio 0.4 0.7 - 1.6 05/29 [facility] CHEM PANEL Globulin 3.5 2.7 - 4.2 05/29 [facility] CHEM PANEL ALT 16 0 - 65 05/29 [facility] CHEM PANEL Total 5.0 6.4 - 8.4 05/29 Protein [facility] CHEM PANEL Albumin Lvl 1.5 3.5 - 5.0 05/29 [facility] CHEM PANEL AST 18 0 - 37 05/29 [facility] CHEM PANEL Bili Total 0.4 0.2 - 1.3 05/29 [facility] CHEM PANEL Alk Phos 39 39 - 136 05/29 [facility] HEMATOLOGY Plt Morph Normal 05/28 (05/28/17 2:37 AM) [place] [facility] URINE AND UA Mucus Few /LPF None Seen 05/25 STOOL /LPF /2016 [facility] URINE AND UA Bacteria Occasional None Seen 05/25 STO[facility] /HPF /HPF /2016 [facility] URINE AND UA Amorph Moderate None [...] Micro? Performed 05/25 STOOL (05/24/17 9:42 PM) [place] [facility] URINE AND UA 1.0 0.1 - 1.0 05/25 STOOL Urobilinogen /2016 [facility] URINE AND UA Nitrite Negative Negative 05/25 [facility] (05/24/17 9:42 PM) [place] URINE AND UA Protein 30 mg/dL Negative 05/25 STOOL mg/dL /2016 [facility] URINE AND UA Bili Small Negative 05/25 STOOL *ABN* /2016 [facility] (05/24/17 9:42 PM) URINE AND UA Blood Moderate Negative 05/25 STOOL *ABN* /2016 [facility] (05/24/17 9:42 PM) URINE AND UA Glucose Negative Negative 05/25 [facility] (05/24/17 9:42 PM) /2016 [place] [facility] URINE AND UA Ketones Trace Negative 05/25 STOOL *ABN* /2016 [facility] (05/24/17 9:42 PM) URINE AND UA Spec Grav >=1.030 <=1.030 05/25 STOOL *ABN* /2016 [facility] (05/24/17 9:42 PM) URINE AND UA pH 5.0 5.0 - 8.0 05/25 STOOL /2016 [facility] URINE AND UA Color Yellow Yellow 05/25 STOOL *NA* /2016 [facility] (05/24/17 9:42 PM) URINE AND UA Turbidity Cloudy Clear 05/25 STOOL *ABN* /2016 [facility] (05/24/17 9:42 PM) CHEM PANEL Procalcitoni 14.55 0.00 - 05/24 Result n Lvl 0.10 Comment: [facility] Critical Result(s) called to Mary Carmen Song RN at 05/24/2017 12:22 by STAN. Read back OK. CHEM PANEL Lactic Acid 1.2 0.5 - 2.2 05/24 Lvl /2016 [facility] URINE AND UA Ketones Negative Negative 05/23 STOOL mg/dL mg/dL [place] URINE AND UA Bili Negative Negative 05/23 STOOL *NA* /2016 [facility] (05/23/17 7:31 AM) URINE AND UA Blood Negative Negative 05/23 STO[facility] (05/23/17 7:31 AM) [place] URINE AND UA Nitrite Negative Negative 05/23 STO[facility] (05/23/17 7:31 AM) [place] URINE AND UA 2.0 0.1 - 1.0 05/23 STOOL Urobilinogen /2016 [facility] URINE AND UA Leuk Est Negative [...] 150 mg/dL Negative 05/23 STOOL mg/dL /2016 [facility] URINE AND UA Protein 100 mg/dL Negative 05/23 STO[facility] mg/dL [place] URINE AND UA Spec Grav 1.020 <=1.030 05/23 STOOL /2016 [facility] URINE AND UA pH 5.0 5.0 - 8.0 05/23 STOOL /2016 [facility] URINE AND UA Color Yellow Yellow 05/23 STOOL *NA* /2016 [facility] (05/23/17 7:31 AM) URINE AND UA Turbidity Clear Clear 05/23 STOOL (05/23/17 7:31 AM) /2016 [place] [facility] CARDIAC BNP 76 <=100 05/23 ENZYMES pg/mL [facility] CHEM PANEL Magnesium 1.6 1.8 - 2.4 05/23 Lvl /2016 [facility] CHEM PANEL Lipase Lvl 151 73 - 393 05/23 [facility] SPECIAL Hgb A1C 6.5 <=5.6 % 05/23 CHEMISTRY /2016 [facility] URINE AND UA Sq Epi Occasional Few /LPF 07/28 STOOL /LPF /2015 [facility] URINE AND UA WBC None Seen None Seen 07/28 STOOL (07/28/16 5:04 AM) /2015 [place] URINE AND UA RBC None Seen 0 - 2 07/28 STO[facility] (07/28/16 5:04 AM) [place] URINE AND UA Bacteria Occasional None Seen 07/28 STOOL /HPF /HPF /2015 [facility] URINE AND UA Nitrite Negative Negative 07/28 STO[facility] (07/28/16 5:04 AM) [place] URINE AND UA Leuk Est Negative Negative 07/28 STO[facility] (07/28/16 5:04 AM) [place] URINE AND UA Turbidity Clear Clear 07/28 STO[facility] (07/28/16 5:04 AM) [place] URINE AND UA Color STRAW 07/28 STOOL /2015 [facility] URINE AND UA Ketones Negative Negative 07/28 STOOL *NA* /2015 [facility] (07/28/16 5:04 AM) URINE AND UA Bili Negative Negative 07/28 STOOL *NA* /2015 [facility] (07/28/16 5:04 AM) URINE AND UA Spec Grav 1.010 <=1.030 07/28 STOOL /2015 [place] URINE AND UA 0.2 0.1 - 1.0 07/28 STOOL Urobilinogen /2015 [facility] URINE AND UA Blood Negative Negative 07/28 STOOL (07/28/16 5:04 AM) [place] URINE AND UA pH 7.0 5.0 - 8.0 07/28 STOOL /2015 [facility] URINE AND UA Glucose 100 mg/dL Negative 07/28 STOOL mg/dL [facility] URINE AND UA Protein Negative Negative 07/28 STOOL (07/28/16 5:04 AM) [place] LIPIDS CHD Risk 2.35 4.00 - 07/28 7.30 [facility] LIPIDS VLDL 27 07/28 [facility] LIPIDS LDL 46 <=99 mg/dL 07/28 (Calculated) [facility] LIPIDS Chol 127 <=199 07/28 mg/dL [facility] LIPIDS HDL 54 >=61 mg/dL 07/28 [facility] LIPIDS Trig 135 <=149 07/28 mg/dL [facility] SPECIAL Hgb A1C 6.1 <=5.6 % 07/28 CHEMISTRY [facility] CARDIAC CK MB Index <2.0 0.0 - 2.5 07/28 ENZYMES [facility] CARDIAC Troponin-I <0.02 0.00 - 07/28 ENZYMES 0.40 [facility] CARDIAC CK MB <1.0 0.5 - 3.6 07/28 ENZYMES [facility] CARDIAC Total CK 49 12 - 191 07/28 ENZYMES [facility] CARDIAC BNP 32 <=100 07/28 [facility] pg/mL [facility] CHEM PANEL Globulin 3.3 2.7 - 4.2 07/28 [facility] CHEM PANEL A/G Ratio 1.0 0.7 - 1.6 07/28 [facility] CHEM PANEL eGFR 53 07/28 [place] Comment: The [facility] eGFR is calculated using the CKD-EPI [...] Eosinophils 2.7 0.0 - 4.0 07/28 /2015 [facility] HEMATOLOGY Basophils 0.6 0.0 - 1.0 07/28 /2015 [facility] HEMATOLOGY PTT 26.5 22.9 - 07/28 MH 35.8 /2015 [facility] HEMATOLOGY PT 13.6 12.0 - 07/28 MH 14.7 /2015 [facility] HEMATOLOGY INR 1.02 0.85 - 07/28 MH 1.17 /2015 [facility] HEMATOLOGY Platelet 181 133 - 450 07/28 /2015 [facility] HEMATOLOGY MPV 10.9 7.4 - 10.4 07/28 /2015 [facility] HEMATOLOGY MCH 29.9 27.0 - 07/28 MH 31.0 /2015 [facility] HEMATOLOGY MCHC 33.2 32.0 - 07/28 MH 36.0 /2015 [facility] HEMATOLOGY MCV 90.2 80.0 - 07/28 MH 94.0 /2015 [facility] HEMATOLOGY RDW 13.3 11.5 - 07/28 MH 14.5 /2015 [facility] HEMATOLOGY Hgb 13.4 14.0 - 07/28 MH 18.0 /2015 [facility] HEMATOLOGY Hct 40.3 42.0 - 07/28 MH 54.0 /2015 [facility] HEMATOLOGY WBC 8.5 3.7 - 10.4 07/28 /2015 [facility] HEMATOLOGY RBC 4.47 4.70 - 07/28 MH 6.10 /2015 [facility] URINE AND UA Bacteria None Seen None Seen 07/28 STO[facility] (07/27/16 10:12 PM) /[place] URINE AND UA WBC None Seen None Seen 07/28 STO[facility] (07/27/16 10:12 PM) /2015 [place] URINE AND UA RBC None Seen 0 - 2 07/28 [facility] (07/27/16 10:12 PM) [place] URINE AND UA Sq Epi Rare /LPF Few /LPF 07/28 STOOL /2015 [facility] URINE AND UA Nitrite Negative Negative 07/28 STO[facility] (07/27/16 10:12 PM) /2015 [place] URINE AND UA Leuk Est Negative Negative 07/28 STO[facility] (07/27/16 10:12 PM) /2015 [place] URINE AND UA Ketones Negative Negative 07/28 STOOL mg/dL mg/dL /2015 [facility] URINE AND UA Bili Negative Negative 07/28 STOOL *NA* /2015 [facility] (07/27/16 10:12 PM) URINE AND UA Blood Negative Negative 07/28 STO[facility] (07/27/16 10:12 PM) [place] URINE AND UA 0.2 0.1 - 1.0 07/28 STOOL Urobilinogen /2015 [facility] URINE AND UA Spec Grav 1.010 [...] Negative 05/30 STOOL (05/30/16 11:03 AM) /2015 [place] URINE AND UA Turbidity Clear Clear 05/30 STOOL (05/30/16 11:03 AM) [place] URINE AND UA Nitrite Negative Negative 05/30 STOOL (05/30/16 11:03 AM) [place] URINE AND UA 0.2 0.1 - 1.0 05/30 STOOL Urobilinogen /2015 [facility] URINE AND UA Spec Grav 1.015 <=1.030 05/30 STOOL /2015 [place] URINE AND UA pH 6.0 5.0 - 8.0 05/30 STOOL /2015 [place] URINE AND UA Protein Negative Negative 05/30 STO[facility] (05/30/16 11:03 AM) [place] URINE AND UA Color Yellow Yellow 05/30 STOOL *NA* /2015 [facility] (05/30/16 11:03 AM) URINE AND UA Ketones Negative Negative 05/30 STOOL *NA* [facility] (05/30/16 11:03 AM) URINE AND UA Glucose Negative Negative 05/30 STOOL (05/30/16 11:03 AM) [place] URINE AND UA Blood Moderate Negative 05/30 STOOL *ABN* /2015 [facility] (05/30/16 11:03 AM) URINE AND UA Bili Negative Negative 05/30 STOOL *NA* (05/30/16 11:03 AM) URINE AND UA Sq Epi Rare /LPF Few /LPF 05/30 STOOL /2015 [facility] URINE AND Micro? Performed 05/30 STOOL (05/30/16 11:03 AM) [place] URINE AND UA WBC None Seen None Seen 05/30 STOOL (05/30/16 11:03 AM) [place] URINE AND UA RBC None Seen 0 - 2 05/30 STOOL (05/30/16 11:03 AM) [place] URINE AND UA Bacteria None Seen None Seen 05/30 STOOL (05/30/16 11:03 AM) /2015 [place] CARDIAC Troponin-I <0.02 0.00 - 05/30 ENZYMES 0.40 [facility] CARDIAC BNP 32 <=100 05/30 [facility] pg/mL /2015 [facility] CARDIAC Total CK 64 12 - 191 05/30 ENZYMES /2015 [facility] CHEM PANEL Lipase Lvl 201 73 - 393 05/30 [facility] ELECTROLYT AGAP 9.2 10.0 - 05/30 ES 20.0 [facility] ELECTROLYT B/C Ratio 20 6 - 25 05/30 ES [facility] ELECTROLYT Globulin 3.8 2.7 - 4.2 05/30 ES [facility] ELECTROLYT A/G Ratio 0.9 0.7 - 1.6 05/30 ES [facility] ELECTROLYT eGFR 49 05/30 [facility] ES Comment: The [facility] eGFR is calculated using the CKD-EPI [...] 91.2 80.0 - 05/30 MH 94.0 /2015 [facility] HEMATOLOGY Hgb 13.4 14.0 - 05/30 MH 18.0 /2015 [facility] HEMATOLOGY RBC 4.37 4.70 - 05/30 MH 6.10 /2015 [facility] HEMATOLOGY WBC 6.9 3.7 - 10.4 05/30 [facility] HEMATOLOGY Platelet 174 133 - 450 05/30 [facility] HEMATOLOGY MPV 10.3 7.4 - 10.4 05/30 [facility] HEMATOLOGY MCHC 33.6 32.0 - 05/30 MH 36.0 /2015 [facility] HEMATOLOGY RDW 13.8 11.5 - 05/30 MH 14.5 /2015 [facility] CHEM PANEL Magnesium 1.6 1.8 - 2.4 02/19 Lv [facility] ELECTROLYT AGAP 8.5 10.0 - 02/19 ES 20.0 [facility] ELECTROLYT eGFR 86 02/19 <sup>1</sup>R esult [facility] Comment: The eGFR is calculated using [...] Lvl 137 135 - 145 02/19 ES [facility] ELECTROLYT Potassium 3.5 3.5 - 5.1 02/19 ES Lvl [facility] ELECTROLYT Calcium Lvl 8.4 8.5 - 10.5 02/19 ES [facility] ELECTROLYT CO2 30 24 - 32 02/19 ES [facility] ELECTROLYT Chloride Lvl 102 95 - 109 02/19 ES [facility] ELECTROLYT Creatinine 0.9 0.5 - 1.4 02/19 ES Lvl /2014 [facility] ELECTROLYT Glucose Lvl 127 70 - 99 02/19 <sup>4</sup>I MH ES /2014 nterpretive [facility] Data: Adult reference range values reflect the clinical guidelines
of the [place] [employer]. ELECTROLYT BUN 9 7 - 22 02/19 MH ES /2014 [facility] HEMATOLOGY Basophils # 0.1 0.0 - [...] Eosinophils 1.2 0.0 - 4.0 02/19 /2014 [facility] HEMATOLOGY Segs-Bands # 4.6 1.5 - 8.1 02/19 /2014 [facility] HEMATOLOGY Monocytes 12.1 2.0 - 12.0 02/19 /2014 [facility] HEMATOLOGY MCH 30.5 27.0 - 02/19 MH 31.0 /2014 [facility] HEMATOLOGY MCHC 34.0 32.0 - 02/19 MH 36.0 /2014 [facility] HEMATOLOGY RDW 13.3 11.5 - 02/19 MH 14.5 /2014 [facility] HEMATOLOGY Hct 31.0 42.0 - 02/19 MH 54.0 /2014 [facility] HEMATOLOGY MCV 89.6 80.0 - 02/19 MH 94.0 /2014 [facility] HEMATOLOGY MPV 9.4 7.4 - 10.4 02/19 /2014 [facility] HEMATOLOGY Platelet 188 133 - 450 02/19 /2014 [facility] HEMATOLOGY Hgb 10.5 14.0 - 02/19 MH 18.0 [facility] HEMATOLOGY WBC 7.7 3.7 - 10.4 02/19 [facility] HEMATOLOGY RBC 3.46 4.70 - 02/19 MH 6.10 [facility] CHEM PANEL Lactic Acid 1.4 0.5 [...] CHEM PANEL eGFR 76 02/18 <sup>2</sup>R esult [facility] Comment: The eGFR is calculated using [...] Calcium Lvl 8.2 8.5 - 10.5 02/18 [facility] CHEM PANEL Glucose Lvl 147 70 - 99 02/18 <sup>5</sup>I nterpretive [facility] Data: Adult reference range values reflect the clinical guidelines
of the [place] [employer]. CHEM PANEL Creatinine 1.0 0.5 - 1.4 02/18 [facility] CHEM PANEL BUN 11 7 - 22 02/18 [facility] ELECTROLYT AGAP 10.5 10.0 - 02/18 MH ES 20.0 /2014 [facility] ELECTROLYT Calcium Lvl 8.4 8.5 - 10.5 02/18 [facility] ELECTROLYT CO2 27 24 - 32 02/18 ES [facility] ELECTROLYT Chloride Lvl 96 95 - 109 02/18 [facility] ELECTROLYT eGFR 76 02/18 <sup>3</sup>R esult [facility] Comment: The eGFR is calculated using [...] 3.5 - 5.1 02/18 MH ES Lv [facility] ELECTROLYT Sodium Lvl 130 135 - 145 02/18 [facility] ELECTROLYT Creatinine 1.0 0.5 - 1.4 02/18 MH ES Lvl [facility] ELECTROLYT BUN 11 7 - 22 02/18 [facility] ELECTROLYT Glucose Lvl 145 70 - 99 02/18 <sup>6</sup>I nterpretive [facility] Data: Adult reference range values reflect the clinical guidelines
of the [place] [employer]. HEMATOLOGY Lymphocytes 12.7 20.0 - 02/18 MH 40.0 /2014 [facility] HEMATOLOGY Segs 74.1 45.0 - 02/18 MH 75.0 /2014 [facility] HEMATOLOGY Monocytes 12.6 2.0 - 12.0 02/18 /2014 [facility] HEMATOLOGY Monocytes # 1.6 0.0 - 0.8 02/18 MH /2014 [facility] HEMATOLOGY Lymphocytes 1.6 1.0 - 5.5 / MH # /2014 [facility] HEMATOLOGY Basophils 0.2 0.0 - 1.0 02/18 /2014 [facility] HEMATOLOGY Eosinophils 0.4 0.0 - 4.0 02/18 MH /2014 [facility] HEMATOLOGY Segs-Bands # 9.6 1.5 - 8.1 02/18 /2014 [facility] HEMATOLOGY Eosinophils 0.1 0.0 - 0.5 02/18 MH # /2014 [facility] HEMATOLOGY RBC 3.97 4.70 - 02/18 MH 6.10 /2014 [facility] HEMATOLOGY WBC 13.0 3.7 - 10.4 02/18 /2014 [facility] HEMATOLOGY MPV 9.7 7.4 - 10.4 02/18 /2014 [facility] HEMATOLOGY RDW 13.1 11.5 - 02/18 MH 14.5 /2014 [facility] HEMATOLOGY Platelet 202 133 - 450 02/18 /2014 [facility] HEMATOLOGY Hct 34.8 42.0 - 02/18 MH 54.0 /2014 [facility] HEMATOLOGY MCV 87.8 80.0 - 02/18 MH 94.0 /2014 [facility] HEMATOLOGY Hgb 11.9 14.0 - 02/18 MH 18.0 /2014 [facility] HEMATOLOGY MCH 30.1 27.0 - 02/18 MH 31.0 /2014 [facility] HEMATOLOGY MCHC 34.3 32.0 - 02/18 MH 36.0 /2014 [facility] CHEM PANEL Lactic Acid 1.1 0.5 - 2.2 02/18 MH Lvl /2014 [facility] LIPIDS VLDL 14 02/18 /2014 [facility] LIPIDS LDL 25 <=99 mg/dL 02/18 MH (Calculated) /2014 [facility] LIPIDS Chol 91 <=199 02/18 MH mg/dL /2014 [facility] LIPIDS CHD Risk 1.75 4.00 - 02/18 MH 7.30 [facility] LIPIDS HDL 52 >=61 mg/dL 02/18 /2014 [facility] LIPIDS Trig 71 <=149 02/18 MH mg/dL /2014 [facility] THYROID TSH 1.790 0.360 - 02/18 MH PANEL 3.740 /2014 [facility] BACTERIAL MRSA by PCR Negative 16 02/18 <sup>16</sup> MH - SEROLOGY (02/17/15 7:29 PM) Interpretiv e [facility] Data: Interpretive Data: The [employer] [...] by the Molecular Diagnostic Laboratory within the [facility]. The Molecular Diagnostic Laboratory is authorized under the Clinical Laboratory Improvement Amendment of 1988 (CLIA-88) to perform high complexity testing. CHEM PANEL Lactic Acid 1.0 0.5 - 2.2 02/18 Lvl /2014 [facility] HEMATOLOGY Platelet 193 133 - 450 02/18 MH /2014 [facility] HEMATOLOGY PTT 25.3 22.9 - 02/18 <sup>14</sup> MH 35.8 /2014 Interpretive [facility] Data: Heparin Therapeutic Range: 57 - 92 Seconds DRUG UDS Note See Note 8 02/17 <sup>8</sup>I MH SCREEN (02/17/15 4:40 PM) nterpretive No rtheast Data: Drugs reported as positive have not been confirmed by a second
va thod and should be used for medical [...] Negative 02/17 MH SCREEN Scr *NA* /2014 [facility] (02/17/15 4:40 PM) DRUG U Opiate Scr Negative Negative 02/17 MH SCREEN *NA* /2014 [facility] (02/17/15 4:40 PM) DRUG U Cannab Scr Negative Negative 02/17 MH SCREEN *NA* /2014 [facility] (02/17/15 4:40 PM) DRUG U Cocaine Positive Negative 02/17 MH SCREEN Scr *ABN* /2014 [facility] (02/17/15 4:40 PM) DRUG U Benzodia Negative Negative 02/17 MH SCREEN Scr *NA* /2014 [facility] (02/17/15 4:40 PM) DRUG U Marilee Scr Negative Negative 02/17 MH SCREEN *NA* /2014 [facility] (02/17/15 4:40 PM) DRUG U Amph Scr Negative Negative 02/17 MH SCREEN *NA* /2014 [facility] (02/17/15 4:40 PM) URINE AND UA Blood Negative Negative 02/17 STO[facility] (02/17/15 4:40 PM) /2014 [place] [facility] URINE AND UA Glucose >=1000 Negative 02/17 STOOL mg/dL mg/dL /2014 [facility] URINE AND UA Bili Negative Negative 02/17 STOOL *NA* /2014 [facility] (02/17/15 4:40 PM) URINE AND UA Color Yellow Yellow 02/17 STOOL *NA* /2014 [facility] (02/17/15 4:40 PM) URINE AND UA Spec Grav 1.010 <=1.030 02/17 STOOL /2014 [facility] URINE AND UA Turbidity Clear Clear 02/17 [facility] (02/17/15 4:40 PM) /2014 [place] [facility] URINE AND UA pH 6.0 5.0 - 8.0 02/17 STOOL /2014 [facility] URINE AND UA Leuk Est Negative Negative 02/17 [facility] (02/17/15 4:40 PM) /2014 [place] [facility] URINE AND UA Nitrite Negative Negative 02/17 STO[facility] (02/17/15 4:40 PM) /2014 [place] [facility] URINE AND UA 0.2 0.1 - 1.0 02/17 STO[facility] Urobilinogen /2014 [facility] URINE AND UA Ketones Negative Negative 02/17 [facility] mg/dL mg/dL /2014 [facility] URINE AND UA Protein Negative Negative 02/17 [facility] mg/dL mg/dL /2014 [facility] URINE AND UA RBC 0-2 /HPF 0 - 2 02/17 STOOL [facility] URINE AND UA Bacteria Few /HPF None Seen 02/17 STOOL /HPF /2014 [facility] URINE AND UA Sq Epi Few /LPF Few /LPF 02/17 STOOL [facility] URINE AND UA WBC 0-2 /HPF None Seen 02/17 STOOL /HPF /2014 [facility] CHEM PANEL Osmolality 255 280 - 300 02/17 [facility] URINE CHEM U Sodium 53 02/17 <sup>12</sup> MH Interpretive [facility] Data: No established reference ranges. URINE CHEM U Osmolality 344 300 - 800 02/17 [facility] URINE CHEM U Creatinine 36.2 02/17 <sup>11</sup> MH Interpretive [facility] Data: No established reference ranges. URINE CHEM U Chloride 72 02/17 [facility] CARDIAC CK MB 7.2 0.5 - 3.6 02/17 ENZYMES [facility] CARDIAC BNP 92 <=100 02/17 <sup>7</sup>I ENZYMES pg/mL /2014 nterpretive [facility] Data: Elevated results are in line with increasing severity of
con gestive heart failure. Minor elevations between 100 and 300
may be seen with Myocardial Ischemia, Sodium retaining drugs,
an d compensated/t reated heart failure. CARDIAC Total CK 493 12 - 191 02/17 ENZYMES /2014 [facility] CARDIAC CK MB Index 1.5 0.0 - 2.5 02/17 ENZYMES /2014 [facility] CARDIAC Troponin-I 0.11 0.00 - 02/17 ENZYMES 0.40 [facility] CHEM PANEL Procalcitoni <0.05 0.00 - 02/17 n Lvl ng/mL 0.10 /2014 [facility] CHEM PANEL Bili Total 0.7 0.2 - 1.3 02/17 /2014 [facility] CHEM PANEL AST 28 0 - 37 02/17 /2014 [facility] CHEM PANEL Globulin 3.5 2.0 - 4.0 02/17 [facility] CHEM PANEL Total 7.3 6.4 - 8.4 02/17 [facility] CHEM PANEL Albumin Lvl 3.8 3.5 - 5.0 02/17 [facility] CHEM PANEL Alk Phos 38 39 - 136 02/17 [facility] CHEM PANEL ALT 24 0 - 65 02/17 [facility] CHEM PANEL A/G Ratio 1.1 0.7 - 1.6 02/17 [facility] CHEM PANEL B/C Ratio 11 6 - 25 02/17 /2014 [facility] HEMATOLOGY Basophils # 0.1 0.0 - 0.2 02/17 /2014 [facility] HEMATOLOGY Segs-Bands # 10.7 1.5 - 8.1 02/17 /2014 [facility] HEMATOLOGY Lymphocytes 1.2 1.0 - 5.5 02/17 # /2015 [facility] HEMATOLOGY Monocytes # 1.5 0.0 - 0.8 02/17 /2014 [facility] HEMATOLOGY Segs 79.6 45.0 - 02/17 75.0 /2014 [facility] HEMATOLOGY Lymphocytes 8.8 20.0 - 02/17 MH 40.0 /2014 [facility] HEMATOLOGY Monocytes 10.8 2.0 - 12.0 02/17 /2014 [facility] HEMATOLOGY Basophils 0.5 0.0 - 1.0 02/17 /2014 [facility] HEMATOLOGY Eosinophils 0.3 0.0 - 4.0 02/17 /2014 [facility] HEMATOLOGY PT 13.3 12.0 - 02/17 MH 14.7 /2014 [facility] HEMATOLOGY PTT 26.3 22.9 - 02/17 <sup>15</sup> MH 35.8 /2014 Interpretive [facility] Data: Heparin Therapeutic Range: 57 - 92 Seconds HEMATOLOGY INR 1.01 0.85 - 02/17 <sup>13</sup> MH 1.17 /2014 Interpretive [facility] Data: RECOMMENDED RANGES FOR PROTIME INR:
2.0-3.0 for most medical and surgical thromboemboli c states.
2.5-3.5 for artificial heart valves and recurrent embolism.<br/ >
INR SHOULD BE USED ONLY FOR PATIENTS ON STABLE ANTICOAGULANT THERAPY. HEMATOLOGY MCHC 33.5 32.0 - 02/17 MH 36.0 /2014 [facility] HEMATOLOGY RDW 13.0 11.5 - 02/17 MH 14.5 /2014 [facility] HEMATOLOGY Hct 39.1 42.0 - 02/17 MH 54.0 /2014 [facility] HEMATOLOGY WBC 13.5 3.7 - 10.4 02/17 /2014 [facility] HEMATOLOGY MCV 90.1 80.0 - 02/17 MH 94.0 /2014 [facility] HEMATOLOGY MCH 30.2 27.0 - 02/17 MH 31.0 /2014 [facility] HEMATOLOGY MPV 9.5 7.4 - 10.4 02/17 [facility] HEMATOLOGY RBC 4.34 4.70 - 02/17 6.10 [facility] HEMATOLOGY Hgb 13.1 14.0 - 02/17 MH 18.0 /2014 [facility] TOXICOLOGY Etoh (%) <0.003 02/17 <sup>9</sup>I nterpretive [facility] Data: Ethanol testing results should be used for medical purposes only.
Neg ative Range: <0.003%
T oxic Range: >0.25% TOXICOLOGY Ethanol Lvl <3 02/17 <sup>10</sup> Interpretive [facility] Data: Negative Range: <3 mg/dL
Tox ic Range: >250 mg/dL URINE AND UA Ketones Negative Negative 02/17 STOOL *NA* /2014 [facility] (02/17/15 10:08 AM) URINE AND UA Bili Negative Negative 02/17 STOOL *NA* /2014 [facility] (02/17/15 10:08 AM) URINE AND UA 0.2 0.1 - 1.0 02/17 STOOL Urobilinogen /2014 [facility] URINE AND UA Blood Negative Negative 02/17 [facility] (02/17/15 10:08 AM) /2014 [place] URINE AND UA Nitrite Negative Negative 02/17 STOOL (02/17/15 10:08 AM) /2014 [place] URINE AND UA Leuk Est Negative Negative 02/17 STO[facility] (02/17/15 10:08 AM) /2014 [place] URINE AND UA Spec Grav <=1.005 <=1.030 02/17 STOOL *NA* /2014 [facility] (02/17/15 10:08 AM) URINE AND UA Glucose 100 mg/dL Negative 02/17 STOOL mg/dL /2014 [facility] URINE AND UA Protein Negative Negative 02/17 STOOL (02/17/15 10:08 AM) [place] URINE AND UA pH 7.0 5.0 - 8.0 02/17 STOOL /2014 [facility] URINE AND UA Color Yellow Yellow 02/17 STOOL *NA* /2014 [facility] (02/17/15 10:08 AM) URINE AND UA Turbidity Clear Clear 02/17 STOOL (02/17/15 10:08 AM) [place] URINE AND UA WBC None Seen None Seen 02/17 [facility] (02/17/15 10:08 AM) [place] URINE AND UA RBC None Seen 0 - 2 02/17 [facility] (02/17/15 10:08 AM) [place] URINE AND UA Bacteria None Seen None Seen 02/17 [facility] (02/17/15 10:08 AM) [place] URINE AND UA Sq Epi None Seen Few 02/17 [facility] (02/17/15 10:08 AM) [place] CHEM PANEL eGFR 68 06/10 <sup>2</sup>R esult [...] PANEL Globulin 3.3 2.0 - 4.0 06/10 [facility] CHEM PANEL A/G Ratio 1.0 0.7 [...] 301 70 - 99 06/10 <sup>5</sup>I nterpretive [facility] Data: Adult reference range values reflect the clinical guidelines
of the [place] [employer]. CHEM PANEL BUN 19 7 - 22 06/10 [facility] CHEM PANEL Sodium Lvl 137 135 - 145 06/10 [facility] CHEM PANEL Creatinine 1.1 0.5 - 1.4 06/10 Lvl [facility] CHEM PANEL Potassium 4.8 3.5 - 5.1 06/10 Lv [facility] CHEM PANEL Chloride Lvl 95 95 - 109 06/10 [facility] HEMATOLOGY MCH 31.6 27.0 - 06/10 31.0 [facility] HEMATOLOGY MCHC 34.5 32.0 - 06/10 36.0 [facility] HEMATOLOGY MCV 91.6 80.0 - 06/10 94.0 /2013 [facility] HEMATOLOGY Hct 41.8 42.0 - 06/10 54.0 [facility] HEMATOLOGY Platelet 187 133 - 450 06/10 [facility] HEMATOLOGY MPV 10.2 7.4 - 10.4 06/10 [facility] HEMATOLOGY RDW 14.1 11.5 - 06/10 14.5 [facility] HEMATOLOGY RBC 4.56 4.70 - 06/10 6.10 [facility] HEMATOLOGY Hgb 14.4 14.0 - 06/10 18.0 [facility] HEMATOLOGY WBC 14.8 3.7 - 10.4 06/10 [facility] CARDIAC Total CK 67 12 - 191 06/09 ENZYMES /2013 [facility] CARDIAC Troponin-I <0.02 0.00 - 06/09 ENZYMES 0.40 [facility] CARDIAC BNP 13 <=100 06/09 <sup>7</sup>I ENZYMES pg/mL /2013 nterpretive [facility] Data: Elevated results are in line with increasing severity of
con gestive heart failure. Minor elevations between 100 and 300
may be seen with Myocardial Ischemia, Sodium retaining drugs,
an d compensated/t reated heart failure. CARDIAC Total CK 65 12 - 191 06/09 ENZYMES [facility] CARDIAC Troponin-I <0.02 0.00 - 06/09 ENZYMES 0.40 [facility] CHEM PANEL eGFR 76 06/09 <sup>3</sup>R esult [facility] Comment: The eGFR is calculated using [...] 1.0 0.5 - 1.4 06/09 Lvl /2013 [facility] HEMATOLOGY PTT 29.8 22.9 - 06/09 <sup>10</sup> MH 35.8 /2013 Interpretive [facility] Data: Heparin Therapeutic Range: 57 - 92 Seconds HEMATOLOGY Platelet 174 133 - 450 06/09 [facility] URINE AND UA Color Yellow Yellow 06/09 [facility] *NA* /2013 [facility] (06/08/14 9:15 PM) URINE AND UA Leuk Est Negative Negative 06/09 [facility] (06/08/14 9:15 PM) [place] [facility] URINE AND UA Nitrite Negative Negative 06/09 [facility] (06/08/14 9:15 PM) [place] [facility] URINE AND UA 0.2 0.1 - 1.0 06/09 [facility] Urobilinogen /2013 [facility] URINE AND UA Glucose Negative Negative 06/09 [facility] (06/08/14 9:15 PM) [place] [facility] URINE AND UA Protein Trace Negative 06/09 STO[facility] *ABN* /2013 [facility] (06/08/14 9:15 PM) URINE AND UA pH 6.0 5.0 - 8.0 06/09 STOOL [facility] URINE AND UA Spec Grav >=1.030 <=1.030 06/09 [facility] *ABN* /2013 [facility] (06/08/14 9:15 PM) URINE AND UA Ketones Negative Negative 06/09 STO[facility] *NA* /2013 [facility] (06/08/14 9:15 PM) URINE AND UA Bili Negative Negative 06/09 [facility] *NA* /2013 [facility] (06/08/14 9:15 PM) URINE AND UA Turbidity Clear Clear 06/09 [facility] (06/08/14 9:15 PM) [place] [facility] URINE AND UA Blood Negative Negative 06/09 [facility] (06/08/14 9:15 PM) [place] [facility] URINE AND UA WBC 0-2 /HPF None Seen 06/09 [facility] /HPF /2013 [facility] URINE AND UA Mucus Rare /LPF None Seen 06/09 [facility] /LPF [facility] URINE AND UA Sq Epi Rare /LPF Few /LPF 06/09 [facility] URINE AND UA RBC 0-2 /HPF 0 - 2 06/09 [facility] URINE AND UA Fine Gran 0-2 /LPF None Seen 06/09 STO[facility] /LPF [facility] CARDIAC CK MB 1.3 0.5 - 3.6 06/09 ENZYMES [facility] CARDIAC Total CK 93 12 - 191 06/09 ENZYMES [facility] CARDIAC Troponin-I <0.02 0.00 - 06/09 ENZYMES 0.40 /2014 [facility] CARDIAC BNP 18 <=100 06/09 <sup>8</sup>I ENZYMES pg/mL /2013 nterpretive [facility] Data: Elevated results are in line with increasing severity of
con gestive heart failure. Minor elevations between 100 and 300
may be seen with Myocardial Ischemia, Sodium retaining drugs,
an d compensated/t reated heart failure. CARDIAC CK MB Index 1.4 0.0 - 2.5 06/09 MH ENZYMES [facility] CHEM PANEL eGFR 68 06/09 <sup>4</sup>R esult [facility] Comment: The eGFR is calculated using [...] 0.90 0.85 - 06/09 <sup>9</sup>I 1.17 nterpretive [facility] Data: RECOMMENDED RANGES FOR PROTIME INR:
2.0-3.0 for most medical and surgical thromboemboli c states.
2.5-3.5 for artificial heart valves and recurrent embolism.<br/ >
INR SHOULD BE USED ONLY FOR PATIENTS ON STABLE ANTICOAGULANT THERAPY. HEMATOLOGY PTT 28.6 22.9 - 06/09 <sup>11</sup> MH 35.8 /2014 Interpretive [facility] Data: Heparin Therapeutic Range: 57 - 92 Seconds HEMATOLOGY PT 12.1 12.0 - 06/09 14.7 [facility] CHEM PANEL ALT 29 0 - 65 06/09 [facility] CHEM PANEL A/G Ratio 0.9 0.7 - 1.6 06/09 [facility] CHEM PANEL Alk Phos 53 39 - 136 06/09 [facility] CHEM PANEL AST 24 0 - [...] esult [facility] Comment: Critical Result(s) called to Theodore Johnson at 06/08/2014 20:56 by [facility]. Read back OK. CHEM PANEL Chloride [...] 199 70 - 99 06/09 <sup>6</sup>I nterpretive [facility] Data: Adult reference range values reflect the clinical guidelines
of the [place] [employer]. HEMATOLOGY MCV 90.8 80.0 - 06/09 94.0 /2013 [facility] HEMATOLOGY Hct 45.4 42.0 - 06/09 54.0 /2013 [facility] HEMATOLOGY MCH 31.6 27.0 - 06/09 31.0 [facility] HEMATOLOGY RBC 5.00 4.70 - 06/09 6.10 [facility] HEMATOLOGY Hgb 15.8 14.0 - 06/09 18.0 /2013 [facility] HEMATOLOGY WBC 8.5 3.7 - 10.4 06/09 [facility] HEMATOLOGY MCHC 34.8 32.0 - 06/09 36.0 /2013 [facility] HEMATOLOGY Platelet 186 133 - 450 06/09 [facility] HEMATOLOGY RDW 14.1 11.5 - 06/09 MH 14.5 /2014 [facility] HEMATOLOGY MPV 9.6 7.4 - 10.4 06/09 /2013 [facility] HEMATOLOGY Eosinophils 0.3 0.0 - 0.5 06/09 MH # /2014 [facility] HEMATOLOGY Basophils # 0.1 0.0 - 0.2 06/09 [facility] HEMATOLOGY Monocytes # 1.1 0.0 - 0.8 06/09 [facility] HEMATOLOGY Segs 62.9 45.0 - 06/09 MH 75.0 /2013 [facility] HEMATOLOGY Lymphocytes 1.7 1.0 - 5.5 06/09 # /2013 [facility] HEMATOLOGY Eosinophils 3.0 0.0 - 4.0 06/09 [facility] HEMATOLOGY Basophils 1.3 0.0 - 1.0 06/09 [facility] HEMATOLOGY Monocytes 13.0 2.0 - 12.0 06/09 [facility] HEMATOLOGY Lymphocytes 19.8 20.0 - 06/09 40.0 /2013 [facility] HEMATOLOGY Segs-Bands # 5.3 1.5 - 8.1 06/09 [facility] Pathology Reports No Data Provided for This Section Diagnostic Reports Report Value Date Source Chest 1view DX Clinical Indication: - R/O PNA 06/05/2017 [facility] Comparison: 05/24/2017 FINDINGS: AP chest radiograph was [...] Atelectasis in the left lung base. SL: [id number] Abdomen RUQ US Clinical Indication: - RUQ pain; 06/03/2017 [facility] Comparison: None TECHNIQUE: Grayscale and limited color [...] and hepatomegaly with assoc iated ascites. SL: [id number] Retroperitoneal Complete Clinical Indication: Renal failure 05/03 [facility] Comparison: CT dated 2017 TECHNIQUE: Multiple longitudinal [...] echogenic right kidney. No hydronephros is. SL: [id number] Chest 1view DX Clinical Indication: Dyspnea - low O2 stats. [facility] Comparison: 05/23. TECHNIQUE: AP 1 view chest [...] atelectasis. Otherwise no acute cardiopulmonary disease. SL: [id number] Chest 2 views DX Clinical Indication: - cholecystitis. 05/23/20 17 [facility] Comparison: 07/2016. TECHNIQUE: PA and lateral chest [...] IMPRESSION: 1. No acute cardiopulmonary disease. SL: [id number] Abdomen RUQ US Clinical Indication: ; Ab normal CT, upper abdominal pain and cramping since last night 2017 [facility] Comparison: CT same day TECHNIQUE: Grayscale and [...] region fluid. See above discussion. . SL: [id number] ED Abdomen/Pelvis IV Clinical Indication: - abd pain; abdominal pain and cramping since last night, history of COPD reflux hypertension abdominal aorta aneurysm repair 2017 [facility] contrast only CT Comparison: None Technique: Multi-detector [...] non-CTA study limits full evaluation. Th e tolowa dee-ni' aneurysm sac measur es 7.7 x 7 [...] wo contrast Clinical Indication: Gait abnormalities 07/29/2016 [facility] MRI Comparison: None TECHNIQUE: Multiplanar T1, T [...] wo Patient Name: ELIDIA Castro OMA 07/29/2016 [facility] contrast MRI : 1945; Age: 71 years y/o Male MR: [id number] Study: Spine cervical wo contrast MRI 07/28/2016 12:32 PM [facility] Ordering Physician: Mata Kraft MD Clinical Indication: [...] percy nge since CT of 02/17/2015 SL: [id number] Carotid artery Doppler 07/28/2016 LIZ garcía Clinical [...] occlusion High, low, or Variable undetectable : [id number] Brain w/wo contrast MRI Patient Name: ELIDIA ERNANDEZ 6 [facility] : 1945; Age: 71 years y/o Male MR: [id number] Study: Brain w/wo contrast MRI 07/28/2016 1:29 A M [facility] Ordering Physician: Sofi Rapp MD Clinical Indication: [...] Chest 1view DX Clinical Indication: Dizziness 07/27/2016 [facility] Comparison: 02/17/2015 and 07/05/2010 FINDINGS: An AP [...] right lower basilar 2 cm nodule. SL: [id number] Brain wo contrast CT Patient Name: ELIDIA ERNANDEZ 07/27/2016 [facility] : 1945; Age: 71 years y/o Male MR: [id number] Study: Brain wo contrast CT 07/27/2016 9:54 [...] Ext Lower Arterial NAME: ELIDIA ERNANDEZ 09/15/2015 [facility] Outpatient Doppler bilat US : 1945 SEX: M [id number] Imaging [facility] Ordering Physician: Farhad Rodriguez lower-romain art [...] Foot series DX Name: ELIDIA ERNANDEZ 09/15/2015 [facility] Ou tpatient Imaging [facility] : 1945 SEX: M Ordering Physician: Farhad [...] wo contrast CT NAME: ELIDIA ERNANDEZ 02/17/2015 [facility] : 1945 SEX: M 85 Ordering Physician: [...] Type Number For Provider Date Date Visit [facility] Inpatient [id number] Negro 06/08 06/11 Gómez Chacko /2013 [facility] Inpatient [id number] Dc Maradiaga 02/17 02/19 Gómez /2014 [facility] Wound Care [id number] Farhad 09/11 10/11 Gómez Rodriguez III /2015 [facility] Outpt Diag [id number] Farhad 09/15 09/16 [facility] Outpatient Services Jennifer KENNEDY /2015 [facility] t [facility] Wound Care [id number] Farhad 10/24 11/22 Gómez Rodriguez III /2015 [facility] Wound Care [id number] Farhad 12/11 01/10 Gómez Rodriguez III /2015 [facility] Wound Care [id number] Farhad 02/05 03/07 Gómez Rodriguez III /2015 [facility] Wound Care [id number] Farhad 05/07 06/06 Gómez Rodriguez III /2015 [facility] Emergency [id number] Ant 05/30 05/30 Gómez Tracy /2015 [facility] Inpatient [id number] Mohammamilana 07/28 07/30 Gómez Rapp /2015 [facility] Wound Care [id number] Farhad 10/02 11/01 Gómez Rodriguez III /2016 [facility] Wound Care [id number] Farhad 12/02 01/01 Gómez Rodriguez III /2016 [facility] Inpatient [id number] Giancarlo 05/23 06/10 Gómez Murphy /2016 [facility] Procedures Procedure Code Date Perfomer Comments Source Aortic aneurysm [id number] [facility] repair Assessment and Plan Assessment and Plan Date Source Extracted from:Title: IM Note 06/10/2017 [facility] Author: Giancarlo Murphy MD Date: 06/10/17 [...] seen and examined by me with the resident/MEDICAL IMAGING TECHNOLOGIST/PA and I agree with the History/Exam documented. 1. Cholecystitis on iv doing well stop coy error previoulsy should 15 not 25 us guideded iv 2. Leukocytosis resolved 3 Resp failure chronic Recommend cont zosyn/diflucan stop date previous error Extracted from:Title: Progress Note Complex * 07/30/2016 [facility] Author: Elton Ugalde MD Date: 07/29/16 Impression and Plan B/L LE WEAKNESS HX ANXIETY HX DEPRESION COPD CONTINUE PT NEUROLOGY EVAL SNF EVAL CONTINUE RX Extracted from:Title: Progress Note *neuro 02/19/2015 [facility] Author: Miriam Mann MD Date: 02/18/15 Impression [...] Cessation Counseling Yes Social History TypeResponse 02/17/2015 [facility] Outpati ent Imaging Substance Abuse [place] [...]
--- OUTSIDE RECORDS SUMMARY | 2020-04-16 00:52 | XMS REPORT | Continuity of Care Document ---
:1945 Author Organization [facility] t Address [address] [place] [address] Care Team Providers Name Role Phone Cherie [...] Mem oria 02-27 16:00:00 l WOUND 08:00: [place] 00 Active 02/27/2017 [facility] LEG Diagnosis Active 2015-092016-07-29 Mem oria WEAKNESS 09-26 15:57:00 l BILATERAL LEG 00:00: [place] WEAKNESS 00 BILATERAL Active 07/27/2016 [facility] WEAKNESS Diagnosis Active 2016-05-30 emoria 05-30 22:11:00 l WEAKNESS 07:00: Rudy n 00 Active 05/30/2016 [facility] AMS Diagnosis Active 2015-02-20 Mem oria 02-17 16:39:00 l AMS 00:00: [place] 00 Active 02/17/2015 [facility] SOB Diagnosis Active 2013-092015-05-19 Mem oria 0-08 09:41:00 l SOB 00:00: [place] 00 Active 06/08/2014 [facility] Type 2 Type [address] [facility] diabetes diabetes [facility] mellitus mellitus Memori a without without l complicati complicati Ou tpati on, on, ent unspecifie unspecifie Cl inics d whether d whether [facility] insulin insulin use use Congestive Congestive Problem [...] oria (qualifier d 00:54:32 l value) Bipolar [place] (qualifier value) Resolved Problem 06/13/2017 [facility] Acute Problem Resolve 2017-06-13 David cedrick congestive d 00:54:32 l heart Acute [place] failure congestive (disorder) heart failure (disorder) Resolved Problem 06/13/2017 [facility] Chronic Problem Resolve 2017-06-13 Mem oria obstructiv d 00:54:32 l e lung Chronic [place] disease obstructiv (disorder) e lung disease (disorder) Resolved Problem 06/13/2017 [facility] Hypertensi Problem Resolve 2017-06-13 Memoria ve d 00:54:32 l disorder, [place] systemic Hypertensi arterial ve (disorder) disorder, systemic arterial (disorder) Resolved Problem 06/13/2017 [facility] Schizophre Problem Resolve 2017-06-13 Memoria boubacar d 00:54:32 l (disorder) Rudy n Schizophre boubacar (disorder) Resolved Problem 06/13/2017 [facility] Aortic Problem Resolve 2017-06-13 David cedrick aneurysm d 00:54:32 l (disorder) Aortic Herm deepa aneurysm (disorder) Resolved Problem 06/13/2017 [facility] Peptic Problem Resolve 2017-06-13 David cedrick ulcer with d 00:54:32 l hemorrhage Peptic Herm deepa (disorder) ulcer with hemorrhage (disorder) Resolved Problem 06/13/2017 [facility] Anxiety Problem Active 2017-06-13 David cedrick (finding) 00:54:32 l Anxiety [place] (finding) Active Problem 06/13/2017 [facility] Arthritis Problem Active 2017-06-13 Me moria (disorder) 00:54:32 l [place] Arthritis (disorder) Active Problem 06/13/2017 [facility] Depressive Problem Active 2017-06-13 M emoria disorder 00:54:32 l (disorder) Rudy n Depressive disorder (disorder) Active Problem 06/13/2017 [facility] Diabetes Problem Active 2017-06-13 Mem oria mellitus 00:54:32 l (disorder) Diabetes He rmann mellitus (disorder) Active Problem 06/13/2017 [facility] Gastroesop Problem Active 2017-06-13 M emoria hageal 00:54:32 l reflux [place] disease Gastroesop (disorder) hageal reflux disease (disorder) Active Problem 06/13/2017 [facility] Glaucoma Problem Active 2017-06-13 Mem oria (disorder) 00:54:32 l Glaucoma Rudy n (disorder) Active Problem 06/13/2017 [facility] Narcosis Problem Active 2017-06-13 Mem oria (finding) 00:54:32 l Narcosis Rudy n (finding) Active Problem 06/13/2017 [facility] Hyperlipid Problem Active 2017-06-13 M emoria emia 00:54:32 l (disorder) Rudy n Hyperlipid emia (disorder) Active Problem 06/13/2017 [facility] CHR AIRWAY Diagnosis Active 2015-05-19 Memoria OBSTRUCT 09:41:00 l NEC CHR [place] AIRWAY OBSTRUCT NEC Active [facility] ALTERED Diagnosis Active 2015-02-20 Me moria MENTAL 16:39:00 l STATUS ALTERED [place] MENTAL STATUS Active [facility] UNSPECIFIE Diagnosis Active 2017-04-03 Memoria D OPEN 16:00:00 l WOUND, [place] RIGHT UNSPECIFIE FOOT, SUBS D OPEN WOUND, RIGHT FOOT, SUBS Active [facility] NON-PRS Diagnosis Active 2015-09-18 Me moria CHRONIC 16:01:00 l ULCER OTH NON-PRS Herm deepa PRT RIGHT CHRONIC FOOT ULCER OTH PRT RIGHT FOOT Active [facility] TYPE 2 Diagnosis Active 2015-11-22 Mem oria DIABETES W 08:18:00 l DIABETIC TYPE 2 Rudy n PERIPHERAL DIABETES W AN DIABETIC PERIPHERAL AN Active [facility] TINEA Diagnosis Active 2016-05-07 Mem oria UNGUIUM 16:57:00 l TINEA [place] UNGUIUM Active [facility] TYPE 2 Diagnosis Active 2016-05-07 Mem oria DIABETES 16:57:00 l MELLITUS TYPE 2 Rudy n WITH DIABETES DIABETIC P MELLITUS WITH DIABETIC P Active [facility] NON-PRS Diagnosis Active 2016-01-09 Me moria CHRONIC 15:34:00 l ULCER OTH NON-PRS Herm deepa PRT R FOOT CHRONIC STREET ULCER OTH PRT R FOOT STREET Active [facility] CORNS AND Diagnosis Active 2016-05-07 Memoria CALLOSITIE 16:57:00 l S CORNS [place] AND CALLOSITIE S Active [facility] MUSCLE Diagnosis Active 2016-07-29 Mem oria WEAKNESS 15:57:00 l (GENERALIZ MUSCLE Herm deepa ED) WEAKNESS (GENERALIZ ED) Active [facility] CHOLECYSTI Diagnosis Active 2017-11-11 Memoria TIS, 12:12:00 l UNSPECIFIE Rudy n D CHOLECYSTI TIS, UNSPECIFIE D Active [facility] Discharge Problem 2016-06-02 2016-06-02 Memoria Diagnosis: 05-30 03:26:48 03:26:48 l Fatigue 05:00: [place] Discharge 00 Diagnosis: Fatigue 05/30/2016 06/02/2016 [facility] Discharge Problem 2016-06-02 2016[facility]: 05-30 03:26:48 03:26:48 l Acute 05:00: [place] renal Discharge 00 insufficie Diagnosis: ncy Acute renal insufficie ncy 05/30/2016 06/02/2016 [facility] Discharge Problem 2016-06-02 2016-06-02 Memoria Diagnosis: 05-30 03:26:48 03:26:48 l Dehydratio 05:00: Rudy n n Discharge 00 Diagnosis: Dehydratio n 05/30/2016 06/02/2016 [facility] Allergies, Adverse Reactions, Alerts Allergy Allergy [...] [facility] Glucometer Glucometer Yes Jenna one strip [facility] test strips test strips 9-16 Millender using the [facility] - 00:[facility]: [employer] Memoria 00 Metric l glucometer [facility] Albuterol Albuterol 2017-09 Yes Jenna [address] [facility] Sulfate Sulfate 2-18 Millender needed Jade kes - 00:00: Memoria 00 [facility] fluconazole 2016-09 Yes 200 mg = 2 Memoria 100 mg oral 0-10 tab, PO, l tablet 21:09: [id number], 0 Padmini nn 00 Refill(s) Saline 2016-09 No 10 mL, Memoria Flush 0.9% 0-10 Route: l 21:00: IVP, Drug [place] 00 Form: INJ, Dosing Weight 118.682, kg, Q8H, Start date: 06/10/17 16:00:00 CDT, Duration: 30 day, Stop date: 07/10/17 8:00:00 ENHANCED ENVIRONMENTAL OPERATOR Lidocaine 2016-09 No Notes: Memori a Hydrochlori 0-10 Preservati l de 10 MG/ML 21:00: ve free. He rmann Injectable 00 (Same as: Solution Xylocaine MPF) Saline 2016-09 No Notes: Memoria Flush 0.9% 0-10 (Same as: l 20:41: BD [place] 00 Posiflush) Lidocaine 2016-09 No 5 mL, Memoria Hydrochlori 0-10 Route: l de 10 MG/ML 19:00: INTRADERM, [place] Injectable 00 Dosing Solution Weight 118.682, kg, ONCALL, Start date: 06/10/17 14:00:00 CDT, Duration: 30 day, Stop date: 07/10/17 12:59:00 ENHANCED ENVIRONMENTAL OPERATOR BD Normal 2016-09 No Notes: Memori a Saline 0-10 (Same as: l Flush 19:00: BD [place] 00 Posiflush) Saline 2016-09 No Notes: Memoria Flush 0.9% 0-10 (Same as: l 18:26: BD [place] 00 Posiflush) Lidocaine 2016-09 No Notes: Memori a Hydrochlori 0-10 Preservati l de 10 MG/ML 18:00: ve free. He rmann Injectable 00 (Same as: Solution Xylocaine MPF) Saline 2016-09 No Notes: Memoria Flush 0.9% 0-10 (Same as: l 17:59: BD [place] 00 Posiflush) Protonix 2016-09 No Notes: Memoria 0-09 Tablet l 21:30: should not [place] 00 be chewed or crushed. (Same as: Protonix) Miralax 2016-09 No Notes: Memoria 0-09 Dissolve l 17:11: in 8 oz of [place] 00 water or juice. (Same as: Miralax) [...] Memoria 0-03 (Same as: l 16:00: Zosyn) [place] 00 Dosing based on Piperacill in component MEDICATION WASTE Product Size: 3375 mg Product Wasted: ___ mg Hydralazine 2016-09 No Notes: David cedrick 0-03 (Same as: l 07:17: Apresoline [place] 00 ) Push over 5 minutes Diflucan 2016-09 No Notes: Memoria 0-01 (Same as: l 20:00: Diflucan) [place] 00 Lasix 2016-09 No Notes: Memoria 0-01 (Same as: l 15:04: Lasix) [place] 00 Diflucan No Notes: Memoria 9-30 (Same as: l 22:00: Diflucan) [place] 00 Do not refrigerat e Flagyl No Notes: Memoria 9-30 (Same as: l 21:00: Flagyl) Avoid alcohol. Lovenox No 30 mg, Memoria 05-30 Route: l 18:00: SUB-Q, Drug form: INJ, [id number], Dosing Weight 118.682, kg, For CrCl <30mL/min, [...] 58.2 MG/ML 18:32: Citrate of H ermann Magnesia) Solution Concentrat ion: 1.745 gm / 30 mL Albuterol No Notes: Memori a 0.833 MG/ML 05-25 (Same as: l / 16:00: Duoneb) Ipratropium 00 [place] 0.167 MG/ML Inhalant Solution Budesonide No Notes: [...] CDT, Stop date: 05/24/17 19:24:00 CDT Dextrose 2017 No 25 gm, Memoria 05-24 Route: l 23:34: IVPB, [place] 00 ONCE, Dosing Weight 118.682, kg, Start [...] ated fatty 14:00: MaxEPA, Herm deepa acids [place] 3 fish oil ) Non-Formul genaro Drug Vitamin D3 No Notes: Memor ia 05-24 Same as : l 14:00: Vitamin D3 venlafaxine No Notes: David cedrick 05-24 (Same As: l 14:00: Effexor) Albuterol No Notes: Memori a 0.833 MG/ML 05-24 (Same as: l / 13:46: Duoneb) Ipratropium 00 [place] 0.167 MG/ML Inhalant Solution [DuoNeb] tiotropium No Notes: Memor ia 0.018 05-24 (Same As: l MG/ACTUAT 13:00: Spiriva). Her andujar Inhalant 00 Powder [Spiriva] Thyroxine No Notes: Memori a 05-24 Take 1 l 11:30: hour [place] 00 before or 2 hours after meal; Enteral feeds may interefere with the absorption of this medication .(Same as:Levothr oid, Synthroid) Trazodone No Notes: Memori a 05-24 (Same As: l 02:00: Desyrel) [place] 00 Risperidone No Notes: David cedrick 05-24 (Same as: l 02:00: Risperdal) [place] 00 latanoprost No Notes: David cedrick 0.05 MG/ML [...] cedrick 05-24 (Same as: l 02:00: Tricor) [place] 00 24 HR No Notes: Memoria Divalproex 05-24 (Same as: l Sodium 500 02:00: Depakote Her andujar MG Extended 00 ER) Once Release daily Tablet dosing; indicated for migraines. Divalproe x sodium extended-r elease tab. Do not chew or crush. "Do Not Crush" Ipratropium No Notes: SEE Memoria 05-24 RT l 00:00: DOCUMENTAT [place] 00 ION (Same as:Atroven t) Zosyn + No Notes: Memoria sodium 05-23 (Same as: l chloride 22:00: Zosyn) [place] 0.9% INJ 00 Dosing 100 mL based on Piperacill in component MEDICATION WASTE Product Size: 3375 mg Product Wasted: ___ mg Brimonidine No Notes: David cedrick tartrate 05-23 (Same As: l 1.5 MG/ML 22:00: Alphagan) Her andujar Ophthalmic Solution Betaxolol No 2 drp, Memori a [...] Memoria 05-23 Route: IV, l 21:00: Q8H, [place] 00 Dosing Weight 109.545, kg, Start date: [...] 18:00: Norvasc) Amiodarone No Notes: Memor ia - (Same as: l 18:00: Cordarone) Alprazolam No Notes: Memor ia - With food l 17:42: or milk (Same as: Xanax) Insulin No 60 Memoria Lispro - units) l 17:40: WASTE: F/P - Black; [...] 06/22/17 12:39:00 CDT Baclofen No Notes: Memoria - (Same As: l 17:15: Lioresal) Aspirin 81 No 81 mg = 1 Me moria MG Chewable -22 tab, PO, l Tablet 16:29: Daily, tab, 0 Refill(s) 24 HR Yes 500 mg = 1 Memori a Divalproex 9-22 tab, PO, l Sodium 500 16:29: Bedtime, # H ermann MG Extended 00 30 tab, 0 Release Refill(s) Tablet Zosyn + No Notes: Memoria sodium -22 (Same as: l chloride 16:00: Zosyn) [place] 0.9% INJ 00 Dosing 100 mL based on Piperacill in component MEDICATION WASTE Product Size: 3375 mg Product Wasted: ___ mg Zosyn + No Notes: Memoria sodium -22 (Same as: l chloride 15:21: Zosyn) [place] 0.9% INJ 00 Dosing 100 mL based on Piperacill in component MEDICATION WASTE Product Size: 3375 mg Product Wasted: ___ mg Morphine No 2 mg, 1 Memori a 9-22 mL, Route: l 14:57: IVP, Drug [place] form: SOLN, Q4H, Dosing Weight 109.545, kg, PRN Pain Score 7-10, Priority: STAT, Start date: 05/23/17 9:57:00 CDT, Stop date: 06/22/17 9:56:00 CDT Zofran No Notes: Memoria - (Same as: l 14:57: Zofran) [place] MEDICATION WASTE Product Size: 4 mg Product [...] Notes: Memoria - (Same l 11:10: as:MORPhin [place] 00 e Sulfate) Saline No Notes: Memoria Flush 0.9% 05-23 (Same as: l 11:09: BD [place] Posiflush) tiotropium 2015-09 No Notes: Memor ia 0.018 09-28 (Same As: l MG/ACTUAT 15:00: Spiriva). Her andujar Inhalant 00 Powder [Spiriva] One-A-Day 2015-09 No 1 tab, Memori a Men 50 Plus 09-28 Route: PO, l 15:00: Dosing [place] Weight 109.545, kg, Daily, Start date: 07/29/16 9:00:00 ENHANCED ENVIRONMENTAL OPERATOR, Duration: 30 day, Stop date: 08/27/16 9:00:00 ENHANCED ENVIRONMENTAL OPERATOR Aspirin 2015-09 No 81 mg, Memoria 09-28 Route: PO, l 15:00: Daily, [place] Dosing Weight 109.545, kg, Start date: 07/29/16 9:00:00 ENHANCED ENVIRONMENTAL OPERATOR, Duration: 30 day, Stop date: 08/27/16 9:00:00 ENHANCED ENVIRONMENTAL OPERATOR Levemir 2015-09 No Notes: Memoria FlexPen 09-28 Same as l 03:00: Levemir Do not hold insulin without contacting prescriber WASTE: F/P - Black; E - Municipal Trash Bin "single patient use only" Trazodone 2015-09 No Notes: Memori a 09-28 (Same As: l 03:00: Desyrel) [place] Risperidone 2015-09 No Notes: David cedrick 09-28 (Same as: l 03:00: Risperdal) [place] latanoprost 2015-09 No Notes: David cerdick 0.05 MG/ML 09-28 Keep l Ophthalmic 03:00: refrigerat H ermann Solution 00 ed. (Same as:Xalatan ) Insulin 2015-09 No 30 unit, Memori a Glargine 09-28 Route: l 100 UNT/ML 03:00: SUB-Q, Padmini nn Injectable 00 Drug form: Solution SOLN, [Lantus] Bedtime, Dosing Weight 109.545, kg, Start date: 07/28/16 21:00:00 ENHANCED ENVIRONMENTAL OPERATOR, Duration: 30 day, Stop date: 08/26/16 21:00:00 ENHANCED ENVIRONMENTAL OPERATOR Docusate 2015-09 No Notes: Memoria Sodium 100 09-27 (Same as: l MG Oral 23:00: Colace) [place] Capsule (Do Not Crush) Brimonidine 2015-09 No Notes: David cedrick tartrate 09-27 (Same As: l 1.5 MG/ML 23:00: Alphagan) Her andujar Ophthalmic 00 Solution Betaxolol 2015-09 No 2 drp, Memori a 2.5 MG/ML 09-27 Route: l Ophthalmic 23:00: BOTH EYES, H ermann Suspension 00 BID, Drug [Betoptic form: S] SUSP, Start date: 07/28/16 17:00:00 ENHANCED ENVIRONMENTAL OPERATOR, Duration: 30 day, Stop date: 08/27/16 9:00:00 ENHANCED ENVIRONMENTAL OPERATOR timolol 2015-09 No Notes: Memoria ophthalmic 09-27 (Same As: l 23:00: Timoptic, [place] 00 Betimol) Buspirone 2015-09 No Notes: Memori a - (Same As: l 21:00: BuSpar) Ipratropium 2015-09 No 500 Memori a 1-27 microgram, l 19:00: Route: NEB, QID, Dosing Weight 109.545, kg, Start date: 07/28/16 13:00:00 ENHANCED ENVIRONMENTAL OPERATOR, Duration: 30 day, Stop date: 08/27/16 9:00:00 ENHANCED ENVIRONMENTAL OPERATOR Alprazolam 2015-09 No 0.5 mg, David cedrick 09-27 Route: PO, l 19:00: TID, Dosing Weight 109.545, kg, Start date: 07/28/16 13:00:00 ENHANCED ENVIRONMENTAL OPERATOR, Duration: 30 day, Stop date: 08/27/16 9:00:00 ENHANCED ENVIRONMENTAL OPERATOR Thyroxine 2015-09 No Notes: Memori a 1-27 Take 1 l 17:30: hour before or 2 hours after meal; Enteral feeds may interefere with the absorption of this medication .(Same as:Levothr oid, Synthroid) multivitami 2015-09 No Notes: David cedrick n with 09-27 Give with l minerals 17:00: food. (Same As: Stress 600 with Zinc) WASTE: F/P - Black; E - Municipal Trash Bin omega-3 2015-09 No Notes: Memoria polyunsatur 09-27 (Same as: l ated fatty 17:00: Lovaza, Herm deepa acids formally named [place]) "Do Not Crush" Lisinopril 2015-09 No Notes: Memor ia 09-27 (Same as: l 17:00: Prinivil, [place] 00 Zestril) metoprolol 2015-09 No Notes: Memor [...] l inhalation 16:32: Symbicort) H ermann aerosol WASTE: with Aerosol [...] Blood Glucose Results, Start date: 07/28/16 10:01:00 ENHANCED ENVIRONMENTAL OPERATOR, Duration: 30 day, Stop date: 08/27/16 10:00:00 ENHANCED ENVIRONMENTAL OPERATOR Glucagon 2015-09 No 1 mg, Memoria 09-27 Route: IM, l 16:01: Drug form: PDR/INJ, PRN, Dosing Weight 109.545, kg, PRN Blood Glucose Results, Start date: 07/28/16 10:01:00 ENHANCED ENVIRONMENTAL OPERATOR, Duration: 30 day, Stop date: 08/27/16 10:00:00 ENHANCED ENVIRONMENTAL OPERATOR Enoxaparin 2015-09 No Notes: Memor ia 09-27 (Same as: l 16:00: Lovenox) [place] Baclofen 2015-09 No Notes: Memoria - (Same As: l 15:58: Lioresal) [place] Saline 2015-09 No Notes: Memoria Flush 0.9% - (Same as: l 15:00: BD [place] Posiflush) aspirin 81 2015-09 No Notes: Do Me moria mg tablet, 09-27 not crush l enteric 15:00: or chew. Rudy n coated 00 (Same As: Ecotrin) Famotidine 2015-09 No Notes: Memor ia 09-27 (Same as: l 15:00: Pepcid) [place] 00 Alprazolam 2015-09 No Notes: Memor ia 0.5 MG Oral 09-27 With food l Tablet 14:20: or milk [place] [Xanax] 00 (Same as: Xanax) Saline 2015-09 No Notes: Memoria Flush 0.9% - (Same as: l 07:29: BD [place] 00 Posiflush) Ondansetron 2015-09 No Notes: David cedrick 09-27 (Same as: l 07:29: Zofran) [place] 00 MEDICATION WASTE Product Size: 4 mg Product Wasted: ___ mg Sodium 2015-09 No 1,000 mL, Memori a Chloride 09-27 Rate: 40 l 0.154 07:29: ml/hr, [place] MEQ/ML 00 Infuse Injectable over: 25 Solution hr, Route: IV, Dosing Weight 97.273 kg, Total Volume: 1,000, Start date: 07/28/16 1:29:00 ENHANCED ENVIRONMENTAL OPERATOR, Stop date: 08/27/16 1:28:00 ENHANCED ENVIRONMENTAL OPERATOR Aspirin 2015-09 No Notes: Memoria 1-27 Take with l 05:47: food. [place] 00 Sodium No 1,000 mL, Memori a Chloride 05-30 1,000 l 0.154 15:49: ml/hr, [place] MEQ/ML 00 Infuse Injectable Over: 1 Solution hr, Route: IV, 1,000, Drug form: INJ, ONCE, Priority: STAT, Dosing Weight 97.727 kg, Start date: 05/30/16 10:49:00 CDT, Duration: 1 doses or times, Stop date: 05/30/16 10:49:00 CDT Fenofibrate No 200 mg, Mem oria 6-20 Route: PO, l 14:00: Daily, Dosing Weight 120, kg, Start date: 02/18/15 9:00:00, Duration: 30 day, Stop date: 03/19/15 9:00:00 pantoprazol No Notes: David cedrick e 6-20 Tablet l 14:00: should not be chewed or crushed. (Same as: Protonix) Thyroxine No Notes: Memori a 6-20 Take 1 l 11:30: hour [place] 00 before or 2 hours after meal; Enteral feeds may interefere with the absorption of this medication .(Same as:Levothr oid, Synthroid) Alprazolam No Notes: Memor ia 6-20 With food l 06:01: or milk (Same as: Xanax) TriCor No Notes: Memoria 6-20 (Same as: l 02:00: Tricor) Risperidone No Notes: David cedrick 6-20 (Same as: l 02:00: Risperdal) Lisinopril No Notes: Memor ia 6-20 (Same as: l 02:00: Prinivil, Zestril) latanoprost No Notes: David cedrick 0.05 MG/ML 6-20 Keep l Ophthalmic 02:00: refrigerat H ermann Solution 00 ed. (Same as:Xalatan ) Lantus No 30 unit, Memoria 6-20 Route: l 02:00: SUB-Q, [place] Bedtime, Dosing Weight 120, kg, Start date: 02/17/15 21:00:00, Duration: 30 day, Stop date: 03/18/15 21:00:00 Levemir No Notes: Memoria FlexPen 6-20 Same as l 02:00: Levemir Do not hold insulin without contacting prescriber "single patient use only" Saline No Notes: Memoria Flush 0.9% 6-20 (Same as: l 02:00: BD [place] 00 Posiflush) Docusate No Notes: Memoria 6-20 (Same as: l 02:00: Colace) [place] 00 (Do Not Crush) normal No 1,000 mL, Memori a saline 0.9% 6-20 Rate: 200 l IV 1,000 mL 01:44: ml/hr, Herm deepa Infuse over: 5 hr, Route: IV, Dosing Weight 120 kg, Total Volume: 1,000, Start date: 02/17/15 20:44:00, Duration: 30 day, Stop date: 03/19/15 20:43:00 Symbicort No Notes: Memori a 160/4.5 6-20 (Same as: l inhalation 01:00: Symbicort) H ermann aerosol 00 with adapter Sodium No 1,000 mL, Memori a Chloride -20 1,000 l 0.154 00:00: ml/hr, [place] MEQ/ML 00 Infuse Injectable Over: 1 Solution hr, Route: IV, ONCE, Priority: STAT, Dosing Weight 120 kg, Start date: 02/17/15 19:00:00, Duration: 1 doses or times, Stop date: 02/17/15 19:00:00 Albuterol No Notes: Memori a 0.833 MG/ML -20 (Same as: l 00:00: Duoneb) Ipratropium 00 [place] 0.167 MG/ML Inhalant Solution Lactulose No Notes: [...] Memoria 6-19 Take with l 22:00: food. [place] Vitamin C No Notes: Memori a 6-19 (Same as: l 22:00: Vitamin C) [place] 00 Amlodipine No Notes: Memor ia 6-19 (Same as: l 22:00: Norvasc) [place] 00 Amiodarone No Notes: Memor ia 6-19 (Same as: l 22:00: Cordarone) Alprazolam No Notes: Memor ia 6-19 With food l 22:00: or milk [place] (Same as: Xanax) venlafaxine No Notes: David cedrick 6-19 (Same As: l 22:00: Effexor) [place] 00 Januvia No Notes: Memoria 6-19 (Same as: l 22:00: Januvia) [place] docusate No Notes: Memoria sodium 100 -19 (Same as: l mg oral 22:00: Colace) [place] capsule 00 (Do Not Crush) dexmedetomi No [...] 6-19 Instructio l Sodium 21:37: ns: FOR [place] Chloride ICU USE 0.9% IV 250 ONLY mL potassium No Notes: Memori a chloride -19 (Same as: l 21:37: Potassium [place] Chloride) Calcium No Notes: Memoria Carbonate 6-19 (Same As: l 500 MG 21:37: Tums) [place] Chewable 00 Calcium Tablet Carbonate 500 mg = 200 mg elemental calcium Dose = mg calcium carbonate ( mg elemental calcium) Magnesium No Notes: Memori a Oxide 02-17 (Same as: l 21:37: Mag-Ox [place] 00 400) Magnesium oxide [id number] g elemental magnesium Dose=____m g magnesium oxide (___mg elemental magnesium) Calcium No Special Memoria Gluconate 02-17 Instructio l 21:37: ns: FOR [place] 00 ICU USE ONLY Neutra-Phos No Notes: David cedrick 02-17 (Same as: l 21:37: Neutra-Bhupinder [place] 00 s) Each 1.25 gm pkt has [...] as: l / 21:37: Duoneb) Ipratropium 00 [place] 0.167 MG/ML Inhalant Solution Bisacodyl No Notes: Memori a - (Same As: l 21:37: Dulcolax, Bisco-Lax) Acetaminoph No Notes: Do M emoria en 02-17 not exceed l 21:37: 4 gm/day. [place] (Same as: Tylenol) NovoLOG No Notes: Memoria FlexPen 02-17 Roll in l 21:30: palms of [place] hands gently; Do not shake vigorously . (Same as: NovoLOG) "single patient use only" Stable for 28 days at room temperatur e. Expires in days from ____Date Humalog No 10 unit, Memori a 02-17 Route: l 21:30: SUB-Q, [place] 00 TID-Before Meals, Dosing Weight 120, kg, [...] Chloride 02-17 1,000 l 0.154 17:06: ml/hr, [place] MEQ/ML 00 Infuse Injectable Over: 1 Solution Hour, Route: IV, ONCE, Priority: STAT, Dosing Weight 127.273 kg, Start date: 02/17/15 12:06:00, Duration: 1 doses or times, Stop date: 02/17/15 12:06:00 Keppra No 1,000 mg, Memori a -19 100 mL, l 16:07: Route: IV, [place] 00 Drug form: INJ, ONCE, Dosing Weight 127.273, kg, Start date: 02/17/15 11:07:00, Stop date: 02/17/15 11:07:00 Ativan No 1 mg, Memoria 02-17 Route: l 16:06: IVP, Drug [place] 00 form: INJ, ONCE, Dosing Weight 127.273, [...] a 6-19 microgram, l 15:45: NEB, QID, [place] 00 0 Refill(s) Humalog Yes 10 unit, Memori a 6-19 SUB-Q, l 15:44: TID-Before 00 Meals, 0 Refill(s) Lantus Yes 30 unit, Memoria 6-19 SUB-Q, l 15:44: Bedtime, 0 [place] 00 Refill(s) busPIRone 5 Yes 5 mg = 1 Me moria mg oral 6-19 tab, PO, l tablet 15:43: TID, 0 [place] 00 Refill(s) venlafaxine Yes 75 mg = 1 M emoria 75 mg oral 6-19 tab, PO, l tablet 15:42: Daily, 0 [place] 00 Refill(s) Alprazolam No 1 mg, PO, Me moria 6 Bedtime, 0 l 15:40: Refill(s) [place] 00 docusate Yes 200 mg = 2 Mem oria sodium 100 6- cap, PO, l mg oral 15:34: BID, 0 [place] capsule 00 Refill(s) Saline No Notes: [facility] Flush 0.9% 02-17 (Same as: l 14:43: BD [place] 00 Posiflush) Naloxone No Notes: [facility] 6-19 Same as l 14:41: Narcan [place] 00 Albuterol 2013-09 Yes 3 ml, [facility] 0.833 MG/ML 0-11 INHALATION l / 17:55: , QID, # [place] Ipratropium 00 60 ea, 0 [place] Refill(s) 0.167 MG/ML Inhalant Solution [DuoNeb] {21 2013-09 Yes Special [facility] (Methylpred 0-11 Instructio l nisolone 4 17:55: ns: Take Her andujar MG Oral 00 with or Tablet without [Medrol]) } food Pack [Medrol Dosepak] Doxycycline 2013-09 Yes 100 mg = 1 Memoria 100 MG Oral 0-11 cap, PO, l Capsule 17:55: [id number], # Herm deepa 00 14 cap, 0 Refill(s) Prednisone 2013-09 No Notes: Memor ia 0-11 Take with l 14:00: food. Budesonide 2013-09 No Notes: Memor ia 0.25 MG/ML 0-10 (Same As: l Inhalant 14:28: Pulmicort) Her andujar Solution 00 [Pulmicort] Azithromyci 2013-09 No Notes: David cedrick n 0-10 Same as: l 04:00: Zithromax [place] Fenofibrate 2013-09 No Notes: David cedrick 0-10 (Same as: l 02:00: Tricor) [place] 00 Effexor XR 2013-09 No Notes: Do Me moria 0-09 not open, l 14:00: crush, or [place] 00 chew. (Same As: Effexor XR) One-A-Day 2013-09 No Notes: Memori a Men 50 Plus 0-09 Give with l 14:00: food. [place] 00 (Same As: Stress 600 with Zinc) Influenza 2013-09 No Notes: Memori a Virus 0-09 (Same as: l Vaccine, 14:00: Fluzone Rudy n Inactivated 00 Quadrivale A-Montalba- nt) (H3N2)-like virus (A-[place]- [facility] X-175C) strain / Influenza Virus Vaccine, Inactivated A-Montalba- , IVR-148 (H1N1) strain / Influenza Virus Vaccine, Inactivated , B-- -2005-lik Furosemide 2013-09 No Notes: Memor ia 0-09 (Same as: l 14:00: Lasix) [place] May cause GI upset. Give with food or milk. Docusate 2013-09 No Notes: Memoria 0-09 (Same as: l 14:00: Colace) [place] (Do Not Crush) Vitamin D3 2013-09 No Notes: Memor ia 0-09 Same as l 14:00: Vitamin D3 [place] 00 aspirin 2013-09 No Notes: [facility]oria 0-09 Take with l 14:00: food. [place] 00 Amlodipine 2013-09 No Notes: Memor ia 0-09 (Same as: l 14:00: Norvasc) [place] 00 Amiodarone 2013-09 No Notes: Memor ia 0-09 (Same as: l 14:00: Cordarone) [place] 00 Alprazolam 2013-09 No Notes: Memor ia 0-09 With food l 14:00: or milk [place] (Same as: Xanax) Enoxaparin 2013-09 No Notes: Memor ia 0-09 (Same as: l 13:00: Lovenox) [place] 00 Thyroxine 2013-09 No Notes: Memori a 0-09 Take 1 l 11:30: hour [place] 00 before or 2 hours after meal; Enteral feeds may interefere with the absorption of this medication . (Same as:Levothr oid) Albuterol 2013-09 No Notes: Memori a 0.833 MG/ML 0-09 (Same as: l / 08:00: Duoneb) [place] Ipratropium 00 [place] 0.167 MG/ML Inhalant Solution methylPREDN 2013-09 No [...] a 0-09 (Same As: l 04:38: Desyrel) [place] 00 Risperidone 2013-09 No Notes: David cedrick 0-09 (Same as: l 04:38: Risperdal) [place] metoprolol 2013-09 No Notes: Memor ia tartrate 0-09 (Same as: l 04:37: Lopressor) [place] 00 Lisinopril 2013-09 No Notes: Memor ia 0-09 (Same as: l 04:37: Prinivil, [place] Zestril) Alprazolam 2013-09 No Notes: Memor ia 0-09 With food l 04:35: or milk [place] (Same as: Xanax) Insulin, 2013-09 No Notes: [facility]oria Aspart, 0-09 Roll in l Human 04:33: palms of [place] hands gently; Do not shake vigorously . (Same as: NovoLOG) "single patient use only" Stable for 28 days at room temperatur e. Expires in days from ____Date Glucagon 2013-09 No 1 mg, Memoria 0-09 Route: IM, l 04:33: Drug form: PDR/INJ, PRN, Dosing Weight 110.966, kg, PRN [...] 04:18: ns: Unknown eye drops; filled at [facility] in [place] aspirin 2013-09 Yes 81 mg, PO, David [...] 2013-09 No Notes: Memori a 0.833 MG/ML 009 (Same as: l / 01:00: Duoneb) Ipratropium 00 [place] 0.167 MG/ML Inhalant Solution [DuoNeb] Saline 2013-09 No Notes: [facility]oria Flush 0.9% 0-09 (Same as: l 00:26: BD Posiflush) Lisinopril Lisinopril Yes Jenna [address] [facility] Aspirin Aspirin Yes Jenna [address] [facility] Betaxolol Betaxolol Yes Jenna [address] HCl HCl [facility] into [facility] eye l [facility] Lisinopril Lisinopril Yes Jenna [address] [facility] Clonidine Clonidine Yes Jenna TAKE [address] HCl HCl [facility] TABLET BY [facility] MOUTH [facility] TWICE l DAILY [facility] Atorvastati Atorvastati Yes Jenna TAKE [address] [facility] n Calcium n Calcium [place] TABLET BY [facility]TH [facility] EVERY l NIGHT AT [facility] Januvia Januvia Yes Jenna TAKE [address] [facility] TABLET BY [facility]TH [facility] DAILY l [facility] Venlafaxine Venlafaxine Yes Jenna [address] [facility] HCl ER HCl ER [place] with food [facility] Latanoprost Latanoprost Yes Jenna INT [address] [facility] IN OU QHS. [facility] Trazodone Trazodone Yes Jenna TK [address] [facility] HCl HCl [facility] QHS. [facility] BusPIRone BusPIRone Yes Jenna [address] [facility] HCl HCl [facility] Levothyroxi Levothyroxi Yes Jenna [address] [facility] ne Sodium ne Sodium Millender on an [facility] - empty [facility] stomach in l the Out[facility] morning ent Clinics Venlafaxine Venlafaxine Yes Jenna TAKE [address] [facility] HCl HCl [place] TABLET BY [facility]TH [facility] EVERY DAY l WITH FOOD. [facility] Furosemide Furosemide Yes Jenna [address] [facility] BD Pen BD Pen Yes Jenna INJECT [facility] Needle Disha Needle Disha [facility] USING [facility] - U/F U/F INSULIN D. [facility] Divalproex Divalproex Yes Jenna as [facility] Sodium ER Sodium ER [facility] directed [facility] Vitamin C Vitamin C Yes Jenna [address] [facility] Docusate Docusate Yes Jenna [address] Sodium Sodium Millender as needed [facility] Xarelto Xarelto Yes Jenna [address] [facility]ILY [facility] Baclofen Baclofen Yes Jenna TK 1 T PO [facility] Q 8 H PRN. [facility] Lasix Lasix Yes Jenna [address] [facility] Tresiba Tresiba Yes Jenna [address] [facility] FlexTouch FlexTouch [facility] Amiodarone Amiodarone Yes Jenna TAKE [address] [facility] HCl HCl [place]ender TABLET BY [facility] M[facility]TH [facility] EVERY DAY. l [facility] Risperidone Risperidone Yes Jenna TAKE [address] [facility] TABLETS BY [facility] - MOUTH ONCE [facility]oria A DAY. l [facility] Symbicort Symbicort Yes Jenna inhale [address] [facility] puffs po [facility] bid. [facility] Amlodipine Amlodipine Yes Jenna TAKE [address] [facility] Besylate Besylate [place] TABLET BY [facility] M[facility]TH [facility] DAILY l [facility] Vital Signs Vital Name Observation Time Observation Value Comments Source Respitory Rate 2017-06-10 22:17:00 Memori al [place] Systolic (mm Hg) 2017-06-10 22:17:00 David rial [place] Diastolic (mm Hg) 2017-06-10 22:17:00 Mem orial [place] Temperature Oral (F) 2017-06-10 22:17:00 98.2 F [facility] [place] Heart Rate 2017-06-10 22:17:00 [facility] [place] Systolic (mm Hg) 2017-06-10 17:00:00 David rial [place] Diastolic (mm Hg) 2017-06-10 17:00:00 Mem orial [place] Respitory Rate 2017-06-10 17:00:00 Memori al [place] Heart Rate 2017-06-10 17:00:00 [facility] [place] Temperature Oral (F) 2017-06-10 17:00:00 98.3 F [facility] [place] Heart Rate 2017-06-10 12:50:00 [facility] [place] Temperature Oral (F) 2017-06-10 12:50:00 98.2 F [facility] [place] Respitory Rate 2017-06-10 12:50:00 Memori al [place] Systolic (mm Hg) 2017-06-10 12:50:00 David rial [place] Diastolic (mm Hg) 2017-06-10 12:50:00 Mem orial [place] BMI Calculated 2017 16:42:00 [facility] al [place] Weight 2017 16:42:00 [facility] [place] Height 2017 16:42:00 185.42 cm [facility] [place] BMI Calculated 2017 15:56:00 [facility] al [place] Weight 2017 15:56:00 [facility] [place] Height 2017 15:56:00 185.42 cm [facility] [place] BMI Calculated 2017 10:33:00 [facility] al [place] Height 2017 10:33:00 185.42 cm [facility] [place] Weight 2017 10:33:00 [facility] [place] Heart Rate 2016-07-30 18:00:00 [facility] [place] Respitory Rate 2016-07-30 18:00:00 [facility] al [place] Systolic (mm Hg) 2016-07-30 18:00:00 David rial [place] Diastolic (mm Hg) 2016-07-30 18:00:00 Mem orial [place] Temperature Oral (F) 2016-07-30 18:00:00 97.5 F [facility] [place] Systolic (mm Hg) 2016-07-30 14:00:00 David rial [place] Diastolic (mm Hg) 2016-07-30 14:00:00 Mem orial [place] Heart Rate 2016-07-30 14:00:00 [facility] [place] Respitory Rate 2016-07-30 14:00:00 Memori al [place] Temperature Oral (F) 2016-07-30 14:00:00 97.5 F [facility] [place] Respitory Rate 2016-07-30 13:39:00 [facility] al [place] Temperature Oral (F) 2016-07-30 06:19:00 98.1 F [facility] [place] Heart Rate 2016-07-30 06:19:00 [facility] [place] Systolic (mm Hg) 2016-07-30 06:19:00 David rial [place] Diastolic (mm Hg) 2016-07-30 06:19:00 Mem orial [place] Weight 2016-07-28 14:21:00 [facility] [place] Weight 2016-07-28 09:33:00 [facility] [place] Height 2016-07-28 09:33:00 182.88 cm [facility] [place] BMI Calculated 2016-07-28 09:33:00 [facility] al [place] Weight 2016-07-28 02:47:00 [facility] [place] BMI Calculated 2016-07-28 02:47:00 Memori al [place] Height 2016-07-28 02:47:00 180.34 cm [facility] [place] Respitory Rate 2016-05-30 18:30:00 [facility]ori al [place] Systolic (mm Hg) 2016-05-30 18:30:00 David rial [place] Diastolic (mm Hg) 2016-05-30 18:30:00 Mem orial [place] Temperature Oral (F) 2016-05-30 18:30:00 98.6 F [facility] [place] Respitory Rate 2016-05-30 18:00:00 Memori al [place] Systolic (mm Hg) 2016-05-30 18:00:00 David rial [place] Diastolic (mm Hg) 2016-05-30 18:00:00 Mem orial [place] Respitory Rate 2016-05-30 17:30:00 Memori al [place] Systolic (mm Hg) 2016-05-30 17:30:00 David rial [place] Diastolic (mm Hg) 2016-05-30 17:30:00 Mem orial [place] Heart Rate 2016-05-30 15:14:00 [facility] [place] BMI Calculated 2016-05-30 14:36:00 [facility] al [place] Weight 2016-05-30 14:36:00 [facility] [place] Heart Rate 2016-05-30 14:36:00 [facility] [place] Height 2016-05-30 14:36:00 182.88 cm [facility] [place] Temperature Oral (F) 2016-05-30 14:36:00 98.7 F [facility] [place] Systolic (mm Hg) 2015-02-19 16:00:00 David rial [place] Diastolic (mm Hg) 2015-02-19 16:00:00 Mem orial [place] Respitory Rate 2015-02-19 16:00:00 Memori al [place] Systolic (mm Hg) 2015-02-19 15:00:00 David rial [place] Diastolic (mm Hg) 2015-02-19 15:00:00 Mem orial [place] Respitory Rate 2015-02-19 15:00:00 Memori al [place] Respitory Rate 2015-02-19 14:00:00 Memori al [place] Systolic (mm Hg) 2015-02-19 14:00:00 David rial [place] Diastolic (mm Hg) 2015-02-19 14:00:00 Mem orial [place] Temperature Oral (F) 2015-02-18 22:07:00 97.7 F [facility] [place] Temperature Oral (F) 2015-02-18 16:51:00 98.6 F [facility] [place] Weight 2015-02-18 15:03:00 [facility] [place] Temperature Oral (F) 2015-02-18 12:48:00 98.5 F [facility] [place] Heart Rate 2015-02-17 18:50:00 [facility] [place] Height 2015-02-17 18:41:00 185.42 cm [facility] [place] Weight 2015-02-17 18:41:00 [facility] [place] BMI Calculated 2015-02-17 18:41:00 Memori al [place] Heart Rate 2015-02-17 17:52:00 [facility] [place] Heart Rate 2015-02-17 17:34:00 [facility] [place] Weight 2015-02-17 14:33:00 [facility] [place] BMI Calculated 2015-02-17 14:33:00 Memori al [place] Height 2015-02-17 14:33:00 185.42 cm [facility] [place] Diastolic (mm Hg) 2014-06-11 17:24:00 Mem orial [place] Systolic (mm Hg) 2014-06-11 17:24:00 David rial [place] Respitory Rate 2014-06-11 17:24:00 Memori al [place] Heart Rate 2014-06-11 17:24:00 [facility] [place] Temperature Oral (F) 2014-06-11 17:24:00 97.4 F [facility] [place] Respitory Rate 2014-06-11 12:27:00 Memori al [place] Heart Rate 2014-06-11 12:26:00 [facility] [place] Temperature Oral (F) 2014-06-11 12:26:00 98.5 F [facility] [place] Systolic (mm Hg) 2014-06-11 12:26:00 David rial [place] Diastolic (mm Hg) 2014-06-11 12:26:00 Mem orial [place] Respitory Rate 2014-06-11 12:26:00 Memori al [place] Systolic (mm Hg) 2014-06-11 05:07:00 David rial [place] Diastolic (mm Hg) 2014-06-11 05:07:00 Mem orial [place] Temperature Oral (F) 2014-06-11 05:07:00 98.4 F [facility] [place] Heart Rate 2014-06-11 05:07:00 [facility] [place] BMI Calculated 2014-06-09 05:37:00 [facility] al [place] Weight 2014-06-09 05:37:00 [facility] [place] Height 2014-06-09 05:37:00 185.42 cm [facility] [place] Height 2014-06-09 00:05:00 185.42 cm Mary Magaña Weight 2014-06-09 00:05:00 [facility] [place] BMI Calculated 2014-06-09 00:05:00 Kelly Mcnally Procedures Procedure Date / Time Performed Performing Clinician Hood hernandez Aortic aneurysm repair Mary Magaña Encounters Start End Encounter Admission Attending Care Care Encounter Source Date/Time Date/Time Type Type Clinicians Facility Department ID 2019-09-23 2019-09-23 [facility] [id number] [facility] 15:09:00 15:09:00 [facility] Medicine Medicine Outpati ent Clinics 2019-09-09 2019-09-09 [facility] [id number] [facility] 11:30:00 11:30:00 [facility] Medicine Medicine Outpati ent Clinics 2019-08-05 2019-08-05 [facility] [id number] [facility] 14:57:00 14:57:00 [facility] Medicine Medicine Outpati ent Clinics 2019-08-02 2019-08-02 [facility] [id number] [facility] 14:24:00 14:24:00 [facility] Medicine Medicine Outpati ent Clinics 2019-07-26 2019-07-26 [facility] [id number] [facility] 13:14:00 13:14:00 [facility] Medicine Medicine Outpati ent Clinics 2019-07-20 2019-07-20 [facility] [id number] [facility] 09:08:00 09:08:00 [facility] Medicine Medicine Outpati ent Clinics 2019-07-14 2019-07-14 [facility] [id number] [facility] 15[facility]20:00 15:20:00 [facility] Medicine Outpati ent Clinics 2019-06-24 2019-06-24 [facility] [id number] [facility] 11[facility]00:00 11:00:00 [facility] Medicine Medicine Outpati ent Clinics 2019-06-01 2019-06-01 [facility] [id number] 12:18:00 12:18:[address] [place] [address] [place] - Drive [facility] Medicine Medicine Outpati ent Clinics 2019-05-31 2019-05-31 [facility] [id number] [address] 14:36:00 14:36:[address] [facility] [address] [facility] Medicine Outpati ent Clinics 2019-05-27 2019-05-27 [facility] [id number] [address] 10:30:00 10:30:00 [facility] Medicine Medicine Outpati ent Clinics 2019-04-12 2019-04-12 [facility] [id number] [facility] [address] 14:45:00 14:45:00 [facility] Road [facility] Medicine Outpati ent Clinics 2019-03-22 2019-03-22 [facility] [id number] [facility] 10[facility]30:00 10:30:00 [facility] [address] [facility] Medicine Medicine Outpati ent Clinics 2019-03-08 2019-03-08 [facility] [id number] [facility] [address] 14:45:00 14:45:[address] [facility] [address] [facility] Medicine Outpati ent Clinics 2019-03-02 2019-03-02 [facility] [id number] 10:30:00 10:30:[address] [facility] [address] [facility] Medicine Medicine Outpati ent Clinics 2018-12-28 2018-12-28 [facility] [id number] [facility] 15[facility]15:00 15:15:[address] [facility] [address] [facility] Medicine Medicine Outpati ent Clinics 2018-12-10 2018-12-10 [facility] [id number] [address] 14:52:00 14:52:[address] [facility] [address] [facility] Medicine Outpati ent Clinics 2018-11-19 2018-11-19 [facility] [id number] [address] 11:30:00 11:30:00 t [facility] Outpati ent Clinics 2018-10-22 2018-10-22 [facility] [id number] 11:45:00 11:45:00 t [facility] Outpati ent Clinics 2018-09-18 2018-09-18 [facility] [id number] 11:48:00 11:48:00 [facility] Outpati ent Clinics 2018-09-16 2018-09-16 [facility] [id number] [facility] 15:42:00 15:42:00 [facility] 2017 2017-06-10 Outpatient Katherine, [facility] [id number] 05:29:00 17:37:00 Giancarlo Cherie 2016-12-02 2016-12-31 Outpatient Blank, [facility] [id number] 13:13:00 23:59:00 Farhad Chadwick 2016-10-02 2016-10-31 Outpatient Blank, [facility] [id number] 10:00:00 23:59:00 Farhad Chadwick 2016-07-27 2016-07-30 Outpatient Dionte, [facility] [id number] 20:46:00 14:34:00 Sofi Keane 2016-05-07 2016-06-05 Outpatient Blank, [facility] [id number] 13:08:00 23:59:00 Farhad Genao 2016-05-30 2016-05-30 Outpatient Demarcus, [facility] [id number] 09:35:00 13:49:00 Ant Polk 2016-02-06 2016-03-06 Outpatient Blank, [facility] [id number] 13:04:00 23:59:00 Farhad Genao 2015-12-12 2016-01-10 Outpatient Blank, [facility] [id number] 13:29:00 23:59:00 Farhad Genao 2015-10-24 2015-11-22 Outpatient Blank, [facility] [id number] 13:00:00 23:59:00 Farhad Genao 2015-09-11 2015-10-10 Outpatient Blank, [facility] [id number] 09:27:00 23:59:00 Farhad Genao 00 2015-09-15 2015-09-15 Outpatient Jennifer [id number] 11:54:00 23:59:00 Farhad Genao [id number] 2015-02-17 2015-02-19 Outpatient DILIP Gold [facility] [id number] 09:32:00 12:39:00 Angel Hoyt 02 2014-06-08 2014-06-11 Outpatient Mariza [facility] [id number] 18:44:00 14:30:00 , Negro 01 Results Test Description Test Time Test Comments Results Result Comments Source CHEM PANEL 2017-06-09 83 [facility] 10:26:00 CHEM PANEL 2017-06-09 9.0 [facility] P[facility] nn 10:26:00 CHEM PANEL 2017-06-09 8.0 [facility] [...] code = MCH) 30.2 pg 27.0-31.0 [facility] DaqevxrHDBJDNGCGD0914-07-42 10:26:008.4[facility] HermannELECTROLYTES 2017-06-05 09:36:006.7[facility] TtbpgunOQTACDTAFDJW1518-63-75 09:36:0017[facility] TvnmvldSETRBPRGIUML3000-45-95 09:36:003.5[facility] LceoxjoRYKJAHFEYNWS4229-14-24 09:36:000.5[facility] VbvxgeoRWUFPYKCAMKN2969-63-92 09:36:0085[facility] [place] KBIOKHHHVTXI6206-00-59 09:36:005.2[facility] KzqzbqkWAKFIBBAAAFZ8101-11-07 09:36:001.7[facility] OvpdfdnTNIEASIQTFKZ9498-12-52 09:36:0018[facility] [place] ANGMZQQFOOEZ4201-78-63 09:36:0036[facility] RppwcfgOZZJJQZABFPT2786-12-18 09:36:00 9.1[facility] IqgpqdjDGIJVHGCXRBL2799-73-62 09:36:0016[facility] HermannELECTROLYTES 2017-06-05 09:36:0038[facility] BizutjlZUOIMDIYKIIJ1122-90-32 09:36:000.3[facility] AfpourqAVUOXEFQWBDH6413-54-09 09:36:000.88[facility] TpxentjKDEUJIGBIIRG7231-19-04 09:36:68878Zkfukqew XwoqtuyHIOVGGFLJGQH8187-06-94 09:36:003.7[facility] [place] XPECSLBIVOUL7009-99-19 09:36:0097[facility] TcjvdsdZMKJIPYCRPAB7549-79-18 09:36:00 15[facility] BbdowzpZUIRXEDXMXEX6343-92-37 09:36:70039Tpvtlapb HermannHEMATOLOGY 2017-06-05 09:36:14169Cytndhdy LzdhnydMXUMEEMGRC7056-12-89 09:36:008.6[facility] DonlmfsOWXXBMLHFA3347-86-10 09:36:0030.7[facility] NpfltiqMUGEKUOAOY1651-05-29 09:36:0088.8[facility] BkegxzaYITVDRWEGN4981-93-31 09:36:003.46[facility] [place] UBDXIZAHJN9541-13-39 09:36:0010.4[facility] OpkgutiPOGSNJCCYU8022-99-17 09:36:00 14.2[facility] MvfrevwHRDJOCGSCF5899-97-30 09:36:0033.8[facility] HermannHEMATOLOGY 2017-06-05 09:36:00 Test Item Value Reference Range Interpretation Comments MCH (test code = MCH) 30.0 pg 27.0-31.0 [facility] JkbknlyUYSGOAUPLK1630-59-90 09:36:0011.4[facility] HermannHEMATOLOGY 2017-06-05 09:36:001.5[facility] LryskdcQZFRRBXZDI8755-65-29 09:36:000.2[facility] WrqdsklVNHQBPHRKX0178-51-18 09:36:001.3[facility] XgfcdfrCJBOBWOTKA9394-97-91 09:36:008.3[facility] DsiigzfYMJUOALZXC6343-02-42 09:36:002.0[facility] [place] LEORMGCEHD1799-69-44 09:36:0013.2[facility] OntgyxuVCUULZRUKZ1117-26-74 09:36:00 11.1[facility] VxflgelZCTCNAODJC8971-98-47 09:36:0073.2[facility] HermannHEMATOLOGY 2017-06-05 09:36:000.1[facility] OopnsphCEGMYJRWNH7876-43-63 09:36:000.5[facility] HermannCHEM VGUCO6278-09-55 15:09:0015[facility] HermannCHEM NQXDZ0828-43-68 15:09:003.7[facility] HermannCHEM IIMKK3055-06-59 15:09:000.5[facility] HermannCHEM LDIBW5081-64-36 15:09:0010.8[facility] HermannCHEM AUOZU9220-34-73 15:09:0083 [facility] HermannCHEM LAGKT8975-54-37 15:09:0043[facility] HermannCHEM PANEL 2017-06-04 15:09:000.3[facility] HermannCHEM XAVRZ5573-57-99 15:09:005.4[facility] HermannCHEM XCGKC4848-15-77 15:09:008.9[facility] HermannCHEM PNCXC2105-19-77 15:09:001.7[facility] HermannCHEM ALVVU1461-05-27 15:09:0035[facility] HermannCHEM VQEQH4230-34-18 15:09:0021[facility] HermannCHEM DAJCL9159-40-51 15:09:0019 [facility] HermannCHEM WZYVX4450-53-31 15:09:000.91[facility] HermannCHEM PANEL 2017-06-04 15:09:74922Xgosaxrz HermannCHEM JMFGD3380-85-08 15:09:0014[facility] HermannCHEM FYTLH2879-56-03 15:09:0093[facility] HermannCHEM FXSAM8533-88-87 15:09:003.8[facility] HermannCHEM HAGWP0357-15-02 15:09:14202Lhuycfog [place] XUAJUCLKMM0058-54-39 15:09:00Moderate *ABN*(06/04/17 10:09 AM)[facility] RLMOTVMVVA2711-36-80 15:09:00Normal (06/04/17 10:09 AM)[facility] HermannHEMATOLOGY 2017-06-04 15:09:00Moderate *ABN*(06/04/17 10:09 AM)[facility] HermannHEMATOLOGY 2017-06-04 15:09:00Moderate *ABN*(06/04/17 10:09 AM)[facility] HermannHEMATOLOGY 2017-06-04 15:09:008.0[facility] ZixzqqgCLCJNATHXF4990-18-27 15:09:004.0[facility] QvdihotIEMAHSQHZT8151-00-70 15:09:000.0[facility] QuvktaiFGLYYKJNHN9992-85-75 15:09:001.0[facility] HwheyapQYYQOTHPRX3154-93-41 15:09:007.0[facility] [place] IQAIKHYRPI3808-81-69 15:09:0080.0[facility] NiwesggNWVVUQTEYF2610-05-78 15:09:00 0.1[facility] FukwnyrTKLXWXMXGR8268-83-10 15:09:0011.8[facility] HermannHEMATOLOGY 2017-06-04 15:09:001.0[facility] YqeckrbTTVXCZPRIX3686-72-33 15:09:001.1[facility] ZeyorpfRJWTILKUIH4263-73-59 15:09:00 Test Item Value Reference Range Interpretation Comments MCH (test code = MCH) 29.7 pg 27.0-31.0 [facility] IizjvanYXCMJSHSCV0818-16-98 15:09:0032.8[facility]OLOGY 2017-06-04 15:09:0011.0[facility] PznibggTOZVXZPYHY1044-05-60 15:09:003.68[facility] XebnixrNWRGMHUATD9716-73-15 15:09:0089.0[facility] PlpgltlNYFWZYTCDR1722-14-53 15:09:0014.0[facility] LiyqzloMLUCTCBUQH6377-49-96 15:09:0014.4[facility] SRXJOMMBHQ4580-55-32 15:09:20670Najgioil QcctbdzQDDEUFCLWI3500-79-78 15:09:008.5 [facility] OyznffyJXYADVJKAL5100-30-88 15:09:0033.4[facility] 2017-06-03 20:40:000.4[facility] GisbehhVFZNZEJKXB3812-87-52 20:40:00Normal (06/03/17 3:40 PM)[facility] OcygoklHACYLYQDIA9187-39-28 20:40:00Normal (06/03/17 3:40 PM)[facility] RwubunrHINDMVFSVP8373-09-79 20:40:000.1[facility] UHIWLBJNCN6801-33-30 09:41:002.0[facility] FcnsbyxLPKXARTQWV2977-16-13 09:41:000.0 [facility] GyionveHRNGVLFODF9557-37-49 09:41:0010.0[facility] 2017-05-31 09:41:00Normal (05/31/17 4:41 AM)[facility] BsccuavUWXQKLUYHY6760-02-47 09:41:00Normal (05/31/17 4:41 AM)[facility] FnqkizwFKJRVDNOXE5913-21-48 09:41:00 Moderate *ABN*(05/31/17 4:41 AM)[facility] UfitzfgRCJXRBDBDK1065-84-87 09:41:00 Test Item Value Reference Range Interpretation Comments Tot Cell Ct (test code = Tot Cell Ct) 100 1 [facility]annCHEM SGDPH7397-57-25 09:27:0038[facility]annCHEM PANEL 2017-05-29 09:27:000.4[facility]annCHE[facility] JKTGC7608-98-98 09:27:003.5[facility]annCHE[facility] ARYYQ7006-48-60 09:27:0016[facility]annCHE[facility] CXMTL1218-26-19 09:27:005.0[facility]annCHEM KPEER8385-62-02 09:27:001.5[facility]annCHE[facility] IQFWI4057-71-41 09:27:0018[facility]annCHE[facility] ICYLE0762-68-91 09:27:000.4 [facility]annCHE[facility] RSQNT3874-68-52 09:27:0039[facility] [facility]HEMATOLOGY 2017-05-28 07:37:00Normal (05/28/17 2:37 AM)[facility] 2017-05-25 02:42:00Negative (05/24/17 9:42 PM)[facility] 2017-05-25 02:42:00Performed (05/24/17 9:42 PM)[facility] 2017-05-25 02:42:001.0[facility] QDGSD4272-60-71 02:42:00Negative (05/24/17 9:42 PM)[facility] HBUUV5205-35-99 02:42:00Small *ABN*(05/24/17 9:42 PM)[facility] NPCSE5012-32-37 02:42:00Moderate *ABN*(05/24/17 9:42 PM)[facility] XEXLC1148-68-44 02:42:00 Negative (05/24/17 9:42 PM)[facility] DUCQL7397-47-17 02:42:00 Trace *ABN*(05/24/17 9:42 PM)[facility] VZZBX4294-60-85 02:42:00 >=1.030 *ABN*(05/24/17 9:42 PM)[facility] TNFOR5197-91-29 02:42:00 Test Item Value Reference Range Interpretation Comments UA pH (test code = UA pH) 5.0 1 5.0-8.0 [facility] IFHMS8275-65-60 02:42:00Yellow *NA*(05/24/17 9:42 PM) [facility] QAAUM3939-65-77 02:42:00Cloudy *ABN*(05/24/17 9:42 PM) [facility]CHE[facility] PJLQK7413-38-71 15:55:0014.55[facility]annCHEM PANEL 2017-05-24 15:55:001.2[facility] FVBJJ4293-58-40 12:31:00Negative *NA*(05/23/17 7:31 AM)[facility] OKXRY1467-42-68 12:31:00Negative (05/23/17 7:31 AM)[facility] LBMJF5498-15-28 12:31:00Negative (05/23/17 7:31 AM)[facility] KHJDQ7477-04-09 12:31:002.0[facility] HUMRA2326-82-12 12:31:00Negative (05/23/17 7:31 AM)[facility] MIQRF7910-55-48 12:31:001[facility] ST[facility] 2017 12:31:002[facility] IYWKN4659-89-30 12:31:001.020 [facility] PZBMT6795-14-35 12:31:005.0[facility] WILAS6225-94-22 12:31:00Yellow *NA*(05/23/17 7:31 AM)[facility] RHELV9892-19-99 12:31:00Clear (05/23/17 7:31 AM)[facility]annCARDIAC ENZYMES 2017 11:12:0076[facility]annCHEM XYXYW9769-93-32 11:12:001.6[facility]annCHEM NNNVD6685-65-71 11:12:52013Tqmmewyd HermannSPECIAL CHEMISTRY 2017 11:12:006.5[facility] SRWNY5261-17-45 11:04:00None Seen (07/28/16 5:04 AM)[facility] CSAGH3313-35-55 11:04:00None Seen (07/28/16 5:04 AM)[facility] OLCQB8159-93-77 11:04:00 Negative (07/28/16 5:04 AM)[facility] HOYLB7174-30-09 11:04:00 Negative (07/28/16 5:04 AM)[facility] DTDHW7090-40-80 11:04:00 Clear (07/28/16 5:04 AM)[facility] UBKUX1821-03-30 11:04:00 Negative *NA*(07/28/16 5:04 AM)[facility] JAGXW4905-13-03 11:04:00Negative *NA*(07/28/16 5:04 AM)[facility] FRABZ4048-60-63 11:04:00 Test Item Value Reference Range Interpretation Comments UA Spec Grav (test code = UA Spec 1.010 1 Grav) [facility] HMSFF2558-64-33 11:04:000.2[facility] LHWQF5951-79-28 11:04:00Negative (07/28/16 5:04 AM)[facility] JUTDX5580-00-24 11:04:00 Test Item Value Reference Range Interpretation Comments UA pH (test code = UA pH) 7.0 1 5.0-8.0 [facility] BKHHL9364-48-17 11:04:00Negative (07/28/16 5:04 AM) [facility] NlshgudOPOYPV9055-39-84 11:00:502.35[facility] WzsvkkpXMXSDP2433-57-84 11:00:5027[facility] OzaikvrHRWCSB0202-90-94 11:00:5046[facility] HermannLIPIDS 2016-07-28 11:00:94116Hdmzgyee EnrhmoaLCQXHH0812-00-88 11:00:5054[facility] DrnuikuYYLZGK0103-40-37 11:00:02454Qbqpppfk HermannSPECIAL WNKXWVBHV9064-46-52 11:00:506.1[facility]annCARDIAC IMFXQMB8121-45-90 04:12:00<2.0[facility]annCARDIAC LGOAASN5650-37-19 04:12:00<0.02[facility]annCARDIAC ENZYMES 2016-07-28 04:12:00<1.0[facility]annCARDIAC JHVNPCA8303-20-12 04:12:0049 [facility] ZMSPDMY1201-74-51 04:12:0032[facility]annCHEM PANEL 2016-07-28 04:12:003.3[facility]annCHEM YJEKT7949-72-24 04:12:001.0[facility]annCHEM PYAES1607-02-94 04:12:0053[facility]annCHEM BGKFL1169-02-70 04:12:0011[facility]annCHEM NAJZN8426-94-31 04:12:0038[facility]annCHE[facility] TZOQX0359-54-98 04:12:000.2[facility]annCHEM STBIG9548-31-93 04:12:0010.0 [facility]CHE[facility] MFQCT8756-16-37 04:12:0021[facility]annCHEM PANEL 2016-07-28 04:12:0016[facility]annCHEM DRUMM4483-94-12 04:12:003.3[facility]annCHE[facility] KSGIV2636-37-98 04:12:008.3[facility]annCHEM MEIZW4113-81-18 04:12:0034[facility]annCHEM TOHWW4078-92-70 04:12:006.6[facility]annCHE[facility] CWPBG7982-91-28 04:12:96306Jbmvidia HermannCHEM WILNK0399-79-91 04:12:004.0 [facility]CHE[facility] IQAZP3521-18-15 04:12:0099[facility]annCHEM PANEL 2016-07-28 04:12:001.34[facility]annCHEM CEDVD0663-92-51 04:12:0028[facility]annCHEM DWLAJ5600-45-26 04:12:48276Rlsfqpev QmrfcndXETARCUITP6206-57-56 04:12:000.1[facility] UphltygHAZPHQFBRD8343-31-77 04:12:005.2[facility] VHXNEATMFI3856-12-39 04:12:0022.2[facility] IfrgmezTDITVSBUGW0950-22-29 04:12:00 13.7[facility] AoclsvwEBAMBPBHRE3493-03-66 04:12:000.2[facility] HermannHEMATOLOGY 2016-07-28 04:12:001.9[facility] IixistiAMVJLIKHIV1227-63-21 04:12:001.[facility]orial AwvhfvvCGKHCNDZJX9368-12-55 04:12:0060.8[facility] NnhycmzKXQFSWUQDJ3040-10-14 04:12:002.7[facility] OgrhmsfZJHDPWBURI2509-51-74 04:12:000.6[facility] DZIDRFHEUU8422-70-79 04:12:00 Test Item Value Reference Range Interpretation Comments PTT (test code = PTT) 26.5 s 22.9-35.8 [facility] AxhfyxgCQWJDGSZWN3052-40-29 04:12:00 Test Item Value Reference Range Interpretation Comments PT (test code = PT) 13.6 s 12.0-14.7 [facility] TmqthgeIXWTSORVAP7712-00-71 04:12:001.02[facility]annHEMATOLOGY 2016-07-28 04:12:15090Etfdceqt NpjlswfNDOUHAGTYN9206-95-46 04:12:0010.9[facility] NhmmiikINHLOXGHDO7879-32-85 04:12:00 Test Item Value Reference Range Interpretation Comments MCH (test code = MCH) 29.9 pg 27.0-31.0 [facility] UiaxguvHQEUZOAWMG4389-26-21 04:12:0033.2[facility]annHEMATOLOGY 2016-07-28 04:12:0090.2[facility] RjgouzlKFEJBAOTJE5829-56-60 04:12:0013.3[facility] OwxzwdvLHOQATIIPC9532-70-06 04:12:0013.4[facility] JtponpiRFRQBJKLHY3479-19-86 04:12:0040.3[facility] WpgudapZFBCNXLCBR6646-11-86 04:12:008.5[facility] SJULRNQYTP6656-54-41 04:12:004.47[facility] CETYJ3779-73-97 04:12:00None Seen (07/27/16 10:12 PM)[facility] SHEXX2490-13-26 04:12:00None Seen (07/27/16 10:12 PM)[facility] HOEAG8591-19-56 04:12:00None Seen (07/27/16 10:12 PM)[facility] QLSNP6030-74-99 04:12:00Negative (07/27/16 10:12 PM)[facility] MURIN8665-55-66 04:12:00Negative (07/27/16 10:12 PM)[facility] HSNPS6220-52-49 04:12:00Negative *NA*(07/27/16 10:12 PM)[facility] STOOL 2016-07-28 04:12:00Negative (07/27/16 10:12 PM)[facility] ST[facility] 2016-07-28 04:12:000.2[facility] TYMQS3134-48-52 04:12:00 Test Item Value Reference Range Interpretation Comments UA Spec Grav (test code = UA Spec 1.010 1 Grav) [facility] LLNIN1854-32-75 04:12:00Yellow *NA*(07/27/16 10:12 PM) [facility] HSBJO4405-06-38 04:12:00Clear (07/27/16 10:12 PM) [facility] YVRGV8284-00-10 04:12:00 Test Item Value Reference Range Interpretation Comments UA pH (test code = UA pH) 7.5 1 5.0-8.0 [facility] GUPNN8385-23-71 16:03:00Negative (05/30/16 11:03 AM) [facility] EIDRW9006-05-72 16:03:00Clear (05/30/16 11:03 AM) [facility] HERRL9332-24-21 16:03:00Negative (05/30/16 11:03 AM) [facility] TSRDD6661-21-26 16:03:000.2[facility] CYSKD2916-90-77 16:03:00 Test Item Value Reference Range Interpretation Comments UA Spec Grav (test code = UA Spec 1.015 1 Grav) [facility] YIEZX3534-19-07 16:03:00 Test Item Value Reference Range Interpretation Comments UA pH (test code = UA pH) 6.0 1 5.0-8.0 [facility] OSYBF7068-90-19 16:03:00Negative (05/30/16 11:03 AM) [facility] DUIXN8010-02-89 16:03:00Yellow *NA*(05/30/16 11:03 AM) [facility] OZIYA4485-19-12 16:03:00Negative *NA*(05/30/16 11:03 AM)[facility] IGONO8214-89-60 16:03:00Negative (05/30/16 11:03 AM) [facility] NVGUS8485-19-39 16:03:00Moderate *ABN*(05/30/16 11:03 AM)[facility] XDGGQ9215-83-72 16:03:00Negative *NA*(05/30/16 11:03 AM)[facility] ALSHI2868-21-02 16:03:00Performed (05/30/16 11:03 AM)[facility] GMHDX9723-33-30 16:03:00None Seen (05/30/16 11:03 AM)[facility] OUUGM5702-37-39 16:03:00None Seen (05/30/16 11:03 AM)[facility] XHOVK3309-12-84 16:03:00None Seen (05/30/16 11:03 AM)[facility]annCARDIAC DLPBINX3871-21-40 15:14:00<0.02[facility] CARDIAC ESBAEJC6944-28-22 15:14:0032[facility]annCARDIAC CRDUSZQ9909-02-07 15:14:0064[facility]annCHEM RYTPW7999-14-03 15:14:68972Xtorfycx [place] MBCBFFNNCSXY8033-32-32 15:14:009.2[facility] EehcmuxPCJXXIYNMNNY5225-60-88 15:14:0020[facility] OvodisqCXBBVTUMHSEX2199-73-78 15:14:003.8[facility] OQAPZLQNBNXZ9037-10-54 15:14:000.9[facility] PlwogtcXVAIOLWUCBSM1305-52-22 15:14:0049[facility] HheionjULKIQMWELCHB2763-04-13 15:14:003.6[facility] GEEYHKUSPSJE8603-28-85 15:14:0020[facility] DcytimiWKMZWHBOSMGN5423-69-71 15:14:00 37[facility] HxgcduxFJNEHAQFQUUY8709-40-31 15:14:0014[facility] HermannELECTROLYTES 2016-05-30 15:14:000.3[facility] VyfwrasZICOYGCYFBPV3011-31-91 15:14:84239Uwsybdso PaivstdMKIUCEQCNEUB7063-62-16 15:14:001.42[facility] HermannELECTROLYTES 2016-05-30 15:14:004.2[facility] MxtbyntDPBDSOSLQMET0101-81-82 15:14:57004Yeebviok JwurbnbZLSIBUGASEJE6602-05-04 15:14:008.9[facility] IfmxsvoABRKYNYSLCCJ2766-85-66 15:14:0035[facility] OkozmxuXISLTQUDHSJD4805-20-90 15:14:007.4[facility] ZAWRIGZUOCKB8988-36-95 15:14:0028[facility] KunvqeeVXYQPVSGOMUW7687-43-46 15:14:00 141[facility] GlaqwiyIVNMUBVLRW5803-40-40 15:14:000.1[facility]annHEMATOLOGY 2016-05-30 15:14:001.3[facility] BcsrdkyTNRYJTEUNH4619-49-08 15:14:001.1[facility] XczkwbgTDAWYYZEVV9037-48-63 15:14:000.1[facility] TffrwvlZEBZCTEHZO2082-49-88 15:14:004.4[facility] XbyuekdCSLFJOZAYE6620-13-87 15:14:000.9[facility] HZAPFLFAHO7291-11-89 15:14:0015.3[facility] PcdrhxhCVNFGSOFTJ6801-34-86 15:14:00 2.1[facility] OlbprmbSKHLQSAGTG6899-20-21 15:14:0018.2[facility]annHEMATOLOGY 2016-05-30 15:14:0063.5[facility] NhhwiatTOPCDCGAGR6393-21-77 15:14:0039.9[facility] QkvybusSAQZGLDEND6267-79-28 15:14:00 Test Item Value Reference Range Interpretation Comments MCH (test code = MCH) 30.6 pg 27.0-31.0 [facility] PalycpiSOEQJOQUAT4613-75-85 15:14:0091.2[facility]annHEMATOLOGY 2016-05-30 15:14:0013.4[facility] DqytywnLTRWGLAXUC4046-02-55 15:14:004.37[facility] HpqpwmpIRXHDIDBIM8953-37-63 15:14:006.9[facility] KzhvvxiNVRAOUYEMG3276-56-05 15:14:51598Lvonzydv KpaiddcPXUMKXHJWP7820-02-79 15:14:0010.3[facility] SFHAKJTXLY1697-10-56 15:14:0033.6[facility] JlkxzurMDVINZBVNB4543-68-81 15:14:00 13.8[facility] HermannCHEM ZPZZK2427-94-95 10:00:001.6[facility] HermannELECTROLYTES 2015-02-19 10:00:008.5[facility] AeajshnRPSWWQZAVMZY4762-93-12 10:00:0086[facility] AyywgitCDBGQOPULWUG9142-94-34 10:00:67821Gmrsitnw XdsezfyKXQUOIJOKGBK6070-54-89 10:00:003.5[facility] AmmteadHEHVFZUQBILC9873-09-06 10:00:008.4[facility] [place] OMOOGKCRLAUI4338-05-02 10:00:0030[facility] JssxcovJHSYBFPFTUID8547-41-12 10:00:00 102[facility] MkjkglqPFCXMYVGGUTF6492-13-73 10:00:000.9[facility] [place] MIFBPICOMZDB5370-45-88 10:00:97075Ppktekpx DwxkxpmADRVGVXURIYE2672-91-40 10:00:009[facility] RmwcmwjRYBMYATASS1593-81-99 10:00:000.1[facility] KVGDUJAQID0468-10-06 10:00:000.1[facility] JpdkxesUAPFUQBPQX6809-53-02 10:00:000.9 [facility] IqelufySOWTIPDJQX2138-66-62 10:00:002.0[facility]annHEMATOLOGY 2015-02-19 10:00:0059.5[facility] UlrjbcxHJILSLVMUU9067-86-23 10:00:0025.6[facility] LtdtduzLBAJJXPOSL4766-11-43 10:00:001.6[facility] XginrucMPZPPDQVEB6052-40-28 10:00:001.2[facility] DqvqikxJSHMPSEQGE9534-18-16 10:00:004.6[facility] VDAAOQKXVS1893-58-53 10:00:0012.1[facility] OdsnjkdHQCLCXGQNC2960-37-74 10:00:00 Test Item Value Reference Range Interpretation Comments MCH (test code = MCH) 30.5 pg 27.0-31.0 [facility] JnfrxxfSZQPSFMTCB3925-02-00 10:00:0034.0[facility]annHEMATOLOGY 2015-02-19 10:00:0013.3[facility] YfgbaznDZIPWKVGEA2946-91-47 10:00:0031.0[facility] ObbctpbKXLJOJTPCG7323-65-98 10:00:0089.6[facility] WzorrwuIQLIWRHQXO7395-72-00 10:00:009.4[facility] EbgnpqaKLZNNWBYPW7079-38-26 10:00:33450Ouhkwzlc [place] TWAYHOYBJX3068-18-83 10:00:0010.5[facility] MnvlrsuZZQUKYQAXX7904-24-44 10:00:00 7.7[facility] QcozgwpKRJIGGUASX7270-72-63 10:00:003.46[facility]annCHEM PANEL 2015-02-18 14:44:001.4[facility] UjrgqmmIBNBTEBOKJQU6564-33-40 14:44:58369Falrnesh HermannCHEM HUFHF5890-24-17 09:05:0011[facility]annCHEM VZGFK2165-35-43 09:05:001.0[facility] HermannCHEM RFFVP4656-57-52 09:05:003.3[facility]annCHEM YJOUH0688-28-12 09:05:009.5[facility]annCHEM YHNTI9765-17-02 09:05:0076 [facility]annCHEM UYRMJ5403-63-43 09:05:18412Ocldoxzk [facility]annCHEM PANEL 2015-02-18 09:05:000.7[facility] HermannCHEM WJTXG1502-97-95 09:05:0031[facility]annCHEM PNKBS9980-21-56 09:05:0025[facility]annCHEM PBGYE3510-08-01 09:05:0032[facility]annCHEM GZACS2558-62-69 09:05:006.5[facility]annCHEM YCSVI8190-72-25 09:05:003.5[facility]annCHEM FOWGK1888-60-57 09:05:003.2 [facility]annCHEM KGWJS1844-25-80 09:05:0028[facility]annCHEM PANEL 2015-02-18 09:05:0095[facility] HermannCHEM HBVBL0777-41-37 09:05:008.2[facility] HermannCHEM CKMMZ4647-18-80 09:05:89547Yfrixjww [facility]annCHEM XXCSH0580-04-91 09:05:001.0[facility] HermannCHEM RBMAQ8239-47-36 09:05:0011[facility] [place] JNZBSIMTZMYP0176-13-20 09:05:0010.5[facility] VwuscboWDWYIFHNOSGD8027-22-84 09:05:008.4[facility] IhavgqdDTIPFKEPVFFU7904-95-04 09:05:0027[facility] [place] GUNAQHOERPUF5498-73-15 09:05:0096[facility] GvlscnbWOWMVHKMXDKM9698-17-50 09:05:00 76[facility] OnynrmmXJZLDAXLXZOU4705-92-07 09:05:003.5[facility] HermannELECTROLYTES 2015-02-18 09:05:22366Vmyucybp AhhkumzYQFGHHIZDOAS4241-24-29 09:05:001.0[facility] VomentsWGQDNNZIZQJL3429-26-92 09:05:0011[facility] XekvanmQJTTWMHNQBAZ8274-05-54 09:05:46465Enbituvn TkleoglCNSHFOQTDL5150-75-49 09:05:0012.7[facility] [place] SWLNUDJOWO0940-87-76 09:05:0074.1[facility] WlxdxjqZIVRQJDFHP4359-06-07 09:05:00 12.6[facility] ErhcjjtNHFUUEZKUZ3564-05-64 09:05:001.6[facility]annHEMATOLOGY 2015-02-18 09:05:001.6[facility] SmnwbvrZNXGJIOKHA2435-72-43 09:05:000.2[facility] PypnqobRFAJSMMYOB2134-64-75 09:05:000.4[facility] HhtpauwWOSJGOZTGH4544-62-95 09:05:009.6[facility] PjmrbpcJWJCAMVKKV6549-44-41 09:05:000.1[facility] [place] KFKOQYAOEY6355-42-50 09:05:003.97[facility] LoyvdbdYKGUJSRDLQ5702-32-47 09:05:00 13.0[facility] HzslssmZINTBNDOOS3549-67-26 09:05:009.7[facility]annHEMATOLOGY 2015-02-18 09:05:0013.1[facility] XuzgbmoMOOACMZLCQ4479-76-24 09:05:93464Agwvxdcb RbfbrwnEBCSLEDHAH1921-73-77 09:05:0034.8[facility] HqkemgqLQVRZBUEBJ4651-38-04 09:05:0087.8[facility] EkxvyqfWSSWIJFQMI1122-83-05 09:05:0011.9[facility] [place] ONDVESJLUO4620-09-13 09:05:00 Test Item Value Reference Range Interpretation Comments MCH (test code = MCH) 30.1 pg 27.0-31.0 [facility] UdzyrxoSWYYDYLMPO4414-42-14 09:05:0034.3[facility] HermannCHEM PANEL 2015-02-18 05:11:001.1[facility] RcpdsrsWOPIDW2489-44-07 05:11:0014[facility] ViklybnVYNBFN3776-39-00 05:11:0025[facility] ExplklsRAGDDY5668-35-21 05:11:0091 [facility] OifbjjyRKFLZF3047-46-93 05:11:001.75[facility] MumycojVGWQED9703-82-90 05:11:0052[facility] DoxjugmSMMOKO6778-95-41 05:11:0071[facility] HermannTHYROID JCUFE1439-20-08 05:11:001.790[facility] HermannBACTERIAL - PCLWBSKB1719-80-15 00:29:00Negative 16(02/17/15 7:29 PM)[facility] HermannCHEM ZRSLH1639-21-65 00:28:001.0[facility] OczdxwkXYQXICMTFZ7091-48-85 00:28:76943Mwwjpocu [place] ATRSNLRIUR0935-77-52 00:28:00 Test Item Value Reference Range Interpretation Comments PTT (test code = PTT) 25.3 s 22.9-35.8 [facility]annDRUG MGZWJY7962-12-74 21:40:00See Note 8(02/17/15 4:40 PM) [facility]annDR[facility] ONNNWF2564-34-70 21:40:00Negative *NA*(02/17/15 4:40 PM) [facility]DR[facility] BYNLTQ2407-57-77 21:40:00Negative *NA*(02/17/15 4:40 PM) [facility] YSYVTX5322-12-40 21:40:00Negative *NA*(02/17/15 4:40 PM) [facility]DR[facility] YBLIMO4968-08-81 21:40:00Positive *ABN*(02/17/15 4:40 PM) [facility]DR[facility] HBVPQQ7561-82-22 21:40:00Negative *NA*(02/17/15 4:40 PM) [facility]DR[facility] EWQSYS5829-71-28 21:40:00Negative *NA*(02/17/15 4:40 PM) [facility]DR[facility] PFHHMD7664-45-60 21:40:00Negative *NA*(02/17/15 4:40 PM) [facility] KQQUR1816-43-36 21:40:00Negative (02/17/15 4:40 PM) [facility] MNDBW4952-70-19 21:40:00Negative *NA*(02/17/15 4:40 PM) [facility] AOMJI5496-42-97 21:40:00Yellow *NA*(02/17/15 4:40 PM) [facility] FHVCJ9568-34-63 21:40:00 Test Item Value Reference Range Interpretation Comments UA Spec Grav (test code = UA Spec 1.010 1 Grav) [facility] ZBRKC7019-56-37 21:40:00Clear (02/17/15 4:40 PM) [facility] OGUCS2407-55-02 21:40:00 Test Item Value Reference Range Interpretation Comments UA pH (test code = UA pH) 6.0 1 5.0-8.0 [facility] DGZLR3542-06-46 21:40:00Negative (02/17/15 4:40 PM) [facility] AORDV9860-07-75 21:40:00Negative (02/17/15 4:40 PM) [facility] MDJGJ8220-38-39 21:40:000.2[facility] HermannCHEM PANEL 2015-02-17 21:12:84956Jtjfjrij [facility]URINE PQSX5321-86-59 20:00:0053[facility]UR[facility] FXLP3264-46-64 20:00:92108Mmdasfla [facility]UR[facility] SPJO8802-58-57 20:00:0036.2[facility]UR[facility] ZTTB5635-09-49 20:00:0072[facility] [place] CARDIAC FAOAXOR0660-15-35 16:09:007.2[facility] HermannCARDIAC OKBNDRK3947-46-95 16:09:0092[facility]annCARDIAC EVSHOMX8859-57-47 16:09:95674Msjsiirg [place] CARDIAC QLOODES5381-09-87 16:09:001.5[facility]annCARDIAC QVYBJQT3433-56-94 16:09:000.11[facility] HermannCHEM JYYRL8608-31-39 16:09:000.7[facility] HermannCHEM YUNRQ5914-80-94 16:09:0028[facility] HermannCHEM RDVWF3571-22-60 16:09:003.5 [facility]annCHEM RNDFH0933-86-78 16:09:007.3[facility] HermannCHEM PANEL 2015-02-17 16:09:003.8[facility] HermannCHEM BHSMO2576-62-32 16:09:0038[facility] HermannCHEM OFDTI9624-69-71 16:09:0024[facility] HermannCHEM USLFP8600-83-73 16:09:001.1[facility]annCHE[facility] QAOCO7096-73-90 16:09:0011[facility] RASMJOTCFT9883-71-92 15:08:000.1[facility] YsoqsdaYJMUVUFPQM3922-10-61 15:08:00 10.7[facility] KifwkhzKKSBDIKIFL4542-39-98 15:08:001.2[facility]annHEMATOLOGY 2015-02-17 15:08:001.5[facility] UczfznjJJFWFCLYEQ1598-33-66 15:08:0079.6[facility] GnyqwwhHDVXALMCER5666-93-23 15:08:008.8[facility] RhsurxzGJEIXGOMZR9265-16-83 15:08:0010.8[facility] OxclqqlRWTFTCEFRH1927-14-20 15:08:000.5[facility] GOFTNNYSBT7287-30-00 15:08:000.3[facility] AplhrxvGIMJERURGO2003-56-06 15:08:00 Test Item Value Reference Range Interpretation Comments PT (test code = PT) 13.3 s 12.0-14.7 [facility] BkddzeuXFBEVWHUPJ6032-78-99 15:08:00 Test Item Value Reference Range Interpretation Comments PTT (test code = PTT) 26.3 s 22.9-35.8 [facility] [place] GbrseipYONROLEIQZ6305-63-56 15:08:001.01[facility]annHEMATOLOGY 2015-02-17 15:08:0033.5[facility] CgorxlrHTYKSZYVVX1397-38-72 15:08:0013.0[facility] XgndchxXFMJKGMBRD3734-35-62 15:08:0039.1[facility] PwotndsZLHBXDONUU6768-56-89 15:08:0013.5[facility] NukeofnPTWVNQOKIH5474-43-11 15:08:0090.1[facility] DXSGBWIFPX2380-09-84 15:08:00 Test Item Value Reference Range Interpretation Comments MCH (test code = MCH) 30.2 pg 27.0-31.0 [facility] QqbgllgXCZQMWQEOQ0920-86-23 15:08:009.5[facility]annHEMATOLOGY 2015-02-17 15:08:004.34[facility] QoxdscdSVQVAKZLRI4798-87-99 15:08:0013.1[facility] LiovamwLDENTONRSM9642-71-48 15:08:00<0.003[facility] HermannTOXICOLOGY 2015-02-17 15:08:00<3[facility] UWZGM9376-92-26 15:08:00 Negative *NA*(02/17/15 10:08 AM)[facility] JFMIA0627-69-61 15:08:00Negative *NA*(02/17/15 10:08 AM)[facility] VIAKG9801-63-53 15:08:000.2[facility] UAHBT9894-51-35 15:08:00Negative (02/17/15 10:08 AM)[facility] YDBOF2572-89-32 15:08:00Negative (02/17/15 10:08 AM)[facility] TYTCS2945-23-90 15:08:00Negative (02/17/15 10:08 AM)[facility] MMLFI0966-36-87 15:08:00<=1.005 *NA*(02/17/15 10:08 AM)[facility] ITPZB7626-24-79 15:08:00Negative (02/17/15 10:08 AM)[facility] SMLDM3695-07-29 15:08:00 Test Item Value Reference Range Interpretation Comments UA pH (test code = UA pH) 7.0 1 5.0-8.0 [facility] NNEJK5698-41-00 15:08:00Yellow *NA*(02/17/15 10:08 AM) [facility] EMWEK0827-18-69 15:08:00Clear (02/17/15 10:08 AM) [facility] YFGNY9122-21-54 15:08:00None Seen (02/17/15 10:08 AM) [facility] IGRZF8750-61-17 15:08:00None Seen (02/17/15 10:08 AM) [facility] YHRAK5224-63-73 15:08:00None Seen (02/17/15 10:08 AM) [facility] QKGXC1044-20-22 15:08:00None Seen (02/17/15 10:08 AM) [facility]CHE[facility] PMTJM8572-28-95 15:55:0068[facility]annCHEM PANEL 2014-06-10 15:55:003.3[facility]annCHEM IOZTA3318-40-16 15:55:001.0[facility]annCHEM SYICZ3818-65-28 15:55:0043[facility]annCHEM EWZLP2487-61-24 15:55:000.3[facility]annCHE[facility] GMPBK2220-33-79 15:55:0017[facility]annCHEM YCSYX4956-73-18 15:55:0010.8[facility]annCHEM BTHQG1219-66-35 15:55:009.3 [facility]CHE[facility] QNETG1342-67-69 15:55:006.7[facility]annCHEM PANEL 2014-06-10 15:55:003.4[facility]annCHEM WGFTK0018-13-29 15:55:0022[facility]annCHEM CXSLD0186-57-50 15:55:0015[facility]annCHEM WFYQN4045-67-41 15:55:0036[facility]annCHEM GRRAR8101-57-58 15:55:16450Getdhwfd HermannCHEM TOBFX5587-53-44 15:55:0019[facility]annCHEM WRBRB4115-81-86 15:55:39038 [facility]CHE[facility] QXEXC3536-06-61 15:55:001.1[facility]annCHEM PANEL 2014-06-10 15:55:004.8[facility]annCHEM CSSZG2185-60-63 15:55:0095[facility] VkxhfspLDEGBXFSEG5839-14-61 15:55:00 Test Item Value Reference Range Interpretation Comments MCH (test code = MCH) 31.6 pg 27.0-31.0 [facility] XrkdhwmBCKEWBDYWI0549-82-38 15:55:0034.5[facility]annHEMATOLOGY 2014-06-10 15:55:0091.6[facility] JucvfeuZALJEEIATP8639-75-41 15:55:0041.8[facility] QyjrswrOBIUUBHDAM3095-82-77 15:55:22993Knzmpwgt CmexywwQWBJSFOMRM7431-48-54 15:55:0010.2[facility] JzoloufAHGODKHCUH2257-08-46 15:55:0014.1[facility] GWBJLYCWQN3107-30-53 15:55:004.56[facility] FvugrlpSWYOYXWZFL6900-41-43 15:55:00 14.4[facility] DzqseggXVHIWXFGNA7407-66-00 15:55:0014.8[facility] HermannCARDIAC GGXRDNT5844-27-48 14:28:0067[facility]annCARDIAC SOWFZIH8548-49-45 14:28:00 <0.02[facility]annCARDIAC XTHTAIF4550-60-12 09:10:0013[facility] CARDIAC EJWESXH8030-56-83 09:10:0065[facility]annCARDIAC LUKRABO2628-65-33 09:10:00<0.02[facility]annCHEM MUDRP3817-24-49 09:10:0076[facility] CHEM PRIVY3201-78-96 09:10:001.0[facility] IodtchmIOXIARBXSM6664-86-38 09:10:00 Test Item Value Reference Range Interpretation Comments PTT (test code = PTT) 29.8 s 22.9-35.8 [facility] VlepqgfLEGDGFGGQB6224-12-83 09:10:98544Daanstdf HermannURINE AND STOOL 2014-06-09 02:15:29Yellow *NA*(06/08/14 9:15 PM)[facility] STOOL 2014-06-09 02:15:29Negative (06/08/14 9:15 PM)[facility] STOOL 2014-06-09 02:15:29Negative (06/08/14 9:15 PM)[facility] STOOL 2014-06-09 02:15:290.2[facility] UYUEU8648-40-83 02:15:29Negative (06/08/14 9:15 PM)[facility] ADJUL0440-40-52 02:15:29Trace *ABN*(06/08/14 9:15 PM)[facility] EOBTI6675-47-36 02:15:29 Test Item Value Reference Range Interpretation Comments UA pH (test code = UA pH) 6.0 1 5.0-8.0 [facility] OXTRZ1994-99-70 02:15:29>=1.030 *ABN*(06/08/14 9:15 PM)[facility] IXHOM4291-49-13 02:15:29Negative *NA*(06/08/14 9:15 PM)[facility] HZOPX6503-20-48 02:15:29Negative *NA*(06/08/14 9:15 PM)[facility] FFICA7847-54-77 02:15:29Clear (06/08/14 9:15 PM) [facility] TAZIQ2079-25-57 02:15:29Negative (06/08/14 9:15 PM) [facility]annCARDIAC XUAYANH5342-46-03 01:45:141.3[facility]annCARDIAC TETLUNO3812-42-50 01:45:1493[facility]annCARDIAC SJPCDJQ7247-39-72 01:45:14 <0.02[facility]annCARDIAC DPUERYQ4557-44-71 01:45:1418[facility] CARDIAC HRWATTL7351-87-50 01:45:141.4[facility] HermannCHEM [id number] 01:45:1468[facility] NzmgietTETFVGUEDC4159-10-54 01:25:190.90[facility] EJJDWNYMCR2588-99-81 01:25:19 Test Item Value Reference Range Interpretation Comments PTT (test code = PTT) 28.6 s 22.9-35.8 [facility] [id number] 01:25:19 Test Item Value Reference Range Interpretation Comments PT (test code = PT) 12.1 s 12.0-14.7 [facility]annCHE[facility] [id number] 01:25:0029[facility]annCHEM PANEL 2014-06-09 01:25:000.9[facility]annCHE[facility] [id number] 01:25:0053[facility]annCHE[facility] XWILG4324-76-53 01:25:0024[facility]annCHE[facility] [id number] 01:25:000.5[facility]annCHE[facility] [id number] 01:25:0018[facility]annCHE[facility] PQCIJ8700-36-29 01:25:004.0[facility]ann[facility] DUXFZ1532-53-07 01:25:007.5 [facility] [id number] 01:25:003.5[facility]annCHEM PANEL 2014-06-09 01:25:004.5[facility]ann[facility] OJCIB2019-45-36 01:25:0041[facility]annCHE[facility] [id number] 01:25:0096[facility]annCHE[facility] LWLGZ4515-14-22 01:25:009.2[facility]annCHE[facility] NDUCL1506-19-15 01:25:006.5[facility]annCHEM [id number] 01:25:25348Snluxwch HermannCHEM PKYVA0922-62-98 01:25:001.1 [facility] [id number] 01:25:0020[facility]annCHEM PANEL 2014-06-09 01:25:40175Cfgnltbq YchbdrrHQKPGDIZZG6343-03-01 01:25:0090.8[facility] GcrskpwKXRMWGPIMM9517-53-23 01:25:0045.4[facility] PjmmyphTFRTZJLJDH5328-83-98 01:25:00 Test Item Value Reference Range Interpretation Comments MCH (test code = MCH) 31.6 pg 27.0-31.0 [facility] VbfqrqoAXKIERXPDZ0175-79-93 01:25:005.00[facility] HermannHEMATOLOGY 2014-06-09 01:25:0015.8[facility] DeioqakTZFLXMOSOA6962-76-33 01:25:008.5[facility] ZlkigzdHIKFJEHDYY7763-22-66 01:25:0034.8[facility] PswupczXMHSEXLIRZ3563-34-84 01:25:20388Lzagynre CicekhfAIRTFCDUPK6293-91-13 01:25:0014.1[facility] BNVIKPUWXX9349-04-17 01:25:009.6[facility] TzvsaqbGSYTGNNTWF4071-52-03 01:25:000.3 [facility] MnucepvYIBOCQRZZT0816-26-57 01:25:000.1[facility] HermannHEMATOLOGY 2014-06-09 01:25:001.1[facility] FxcjouaFPNBNSKNAU5146-77-18 01:25:0062.9[facility] WlqbgowFDXDVHZUOK1963-39-58 01:25:001.7[facility] PhtanibUFYWDXKMHC0209-09-29 01:25:003.0[facility] BmjfepvOVEOZNFRYC7781-52-94 01:25:001.3[facility] OASCAKHTZR8773-36-89 01:25:0013.0[facility] GvtscelSZCMRFXYTR0158-71-12 01:25:00 19.8[facility] HmzmxsjDSWRBNSBEV1007-71-06 01:25:005.3[facility]
[2020-04-16 02:01] LABS: Absolute Lymphocytes (CBC) 0.9 K/uL (0.7-4.9); Basophils % 2.2 % (0-1.3); Hematocrit 33.6 % (39.6-49.0); Lymphocytes % 12.8 % (15.3-44.8); MPV 10.2 fL (7.6-11.3); RBC Red Blood Cell Count 3.75 M/uL (4.33-5.43)
[2020-04-16 02:04] LABS: Protime INR 1.5
[2020-04-16] MEDS ORDERED: OXYMETAZOLINE HCL 0.05% 15ML NAS ONE (02:12)
[2020-04-16 02:15] LABS: ALT/SGPT 14 U/L (12-78); AST/SGOT 9 U/L (15-37); Albumin 2.3 g/dL (3.4-5.0); Alkaline Phosphatase 60 U/L (45-117); BUN Blood Urea Nitrogen 19 mg/dL (7-18); Bicarbonate 34 mmol/L (21-32); Bilirubin Direct < 0.1 mg/dL (0-0.2); Bilirubin Total 0.2 mg/dL (0.2-1.0); CKMB Creatine Kinase MB 1.6 ng/mL (0.3-3.6); Creatine Phosphokinase 27 U/L (39-308); Glucose Level 139 mg/dL (74-106); Lipase 93 U/L (73-393); NT PRO-BNP 1240 pg/mL (<450); Potassium 4.3 mmol/L (3.5-5.1); Protein, Total 6.4 g/dL (6.4-8.2); Sodium Level 138 mmol/L (136-145); Troponin (Emerg Dept Use Only) 0.04 ng/mL (0.0-0.045)
--- NOTE | 2020-04-16 03:04 | ER ---
Nurse's Notes [facility] Name: Michael Duncan Age: 74 yrs Sex: Male : 1945 Arrival Date: 04/16/2020 Time: 00:44 Bed 30 Private MD: Diagnosis: Hemoptysis;Coronavirus infection, unspecified;Hypoxemia Presentation: 04/16 00:48 Chief complaint: Patient states: [facility] staff report this patient to be COVID sg 19 positive and has been vomiting or coughing up blood this evening x1 episode, VSS in route per EMS, pt uses home o2 via NC at 3 lpm per pt. Coronavirus screen: Client reports previous positive COVID test result. Ebola Screen: Patient negative for fever greater than or equal to 101.5 degrees Fahrenheit, and additional compatible Ebola Virus Disease symptoms Patient denies exposure to infectious person. Patient denies travel to an Ebola-affected area in the 21 days before illness onset. No symptoms or risks identified at this time. Initial Sepsis Screen: Does the patient meet any 2 criteria? No. Patient's initial sepsis screen is negative. Does the patient have a suspected source of infection? No. Patient's initial sepsis screen is negative. Risk Assessment: Do you want to hurt yourself or someone else? Patient reports no desire to harm self or others. Onset of symptoms was April 16, 2020. Care prior to arrival: Oxygen administered. via a non-rebreather mask. Transition of care: patient was received from another setting of care (long-term care facility), [facility]. 00:48 Acuity: SHAZIA 3 sg 00:48 Method Of Arrival: EMS: [facility] sg 00:57 Note pt states has blisters on bottom that are being cared for by NH staff, states that sg his bottom is painful. Historical: - Allergies: 00:56 caffiene; sg 00:56 Codeine; sg - Home Meds: 00:56 Xarelto 20 mg Oral tab 1 tab once daily [Active]; venlafaxine 75 mg Oral cp24 1 cap sg once daily [Active]; amlodipine 5 mg tab 1 tab once daily [Active]; amiodarone 200 mg Oral tab 1 tab once daily [Active]; clonidine HCl 0.1 mg Oral tab 1 tab 2 times per day [Active]; Januvia 100 mg Oral tab 1 tab once daily [Active]; levothyroxine 75 mcg tab 1 tab once daily [Active]; - PMHx: 00:56 Bipolar disorder; COPD; Diabetes - NIDDM; High Cholesterol; Hypertension; sg - Immunization history:: Adult Immunizations up to date. - Social history:: Smoking status: Patient denies any tobacco usage or history of. Screenin:20 Abuse screen: Denies threats or abuse. Nutritional screening: No deficits noted. jb4 Tuberculosis screening: No symptoms or risk factors identified. Fall Risk None identified. Assessment: 00:57 Reassessment: pt repositioned for comfort, reports having blisters on bottom that the [facility] staff are caring for, pt states feels better at this time. 01:20 General: Appears in no apparent distress. uncomfortable, Behavior is calm, cooperative, mw appropriate for age. Pain: Complains of pain in buttocks Pain does not radiate. Pain currently is 6 out of 10 on a pain scale. Quality of pain is described as burning. Neuro: Level of Consciousness is awake, alert, obeys commands, Oriented to person, place, time, situation. Cardiovascular: Patient's skin is warm and dry. Respiratory: Airway is patent Respiratory effort is even, unlabored, Respiratory pattern is regular, symmetrical, blood noted when patent cough's coming from the mouth and both nares. Breath sounds are coarse bilaterally. GI: No signs and/or symptoms were reported involving the gastrointestinal system. : No signs and/or symptoms were reported regarding the genitourinary system. EENT: No signs and/or symptoms were reported regarding the EENT system. Derm: Skin is intact, Skin is pink, warm \T\ dry. Musculoskeletal: Circulation, motion, and sensation intact. Range of motion: intact in all extremities. 02:30 Reassessment: Patient and/or family updated on plan of care and expected duration. Pain jb4 level reassessed. Patient is alert, oriented x 3, equal unlabored respirations, skin warm/dry/pink. PT transferred to Isolation room and placed on air borne precautions due to High flow oxygen therapy. 03:30 Reassessment: Patient and/or family updated on plan of care and expected duration. Pain jb4 level reassessed. Patient is alert, oriented x 3, equal unlabored respirations, skin warm/dry/pink. Pt placed on venti mask by respiratory therapy. Sats increased to 95%. 04:30 Reassessment: Patient and/or family updated on plan of care and expected duration. Pain jb4 level reassessed. Patient is alert, oriented x 3, equal unlabored respirations, skin warm/dry/pink. PT placed on 3L NC to go to CT to reduce airborne risk during transfer, pt remains on 3L NC in room. Satting 96% ER provider notified. Vital Signs: 00:48 BP 174 / 76; Pulse 78; Resp 18 S; Temp 97.3; Pulse Ox 100% on 15% Non-rebreather mask; sg 02:00 BP 145 / 48; Pulse 57; Resp 16; Pulse Ox 92% on Non-rebreather mask; jb4 02:45 BP 95 / 76; Pulse 57; Resp 16; Pulse Ox 100% on Non-rebreather mask; jb4 04:00 BP 147 / 58; Pulse 58; Resp 15; Pulse Ox 99% on 3 lpm NC; jb4 ED Course: 00:44 Patient arrived in ED. bp1 00:48 Arm band placed on. sg 00:50 Deon Velazquez MD is Attending Physician. tw4 00:55 Triage completed. sg 01:20 Patient has correct armband on for positive identification. Bed in low position. Call jb4 light in reach. Side rails up X 1. panel monitor on. Pulse ox on. NIBP on. 01:20 Inserted saline lock: 20 gauge in right wrist, using aseptic technique. Blood collected.jb4 01:20 Initial lab(s) drawn, by ar, sent to lab. First set of blood cultures drawn by me. jb4 01:35 Second set of blood cultures drawn by me. jb4 02:13 XRAY CXR (1 view) In Process Unspecified. EDMS 02:23 Getachew Gorman, ALTAF is Primary Nurse. jb4 03:03 Ward Benjamin PA is Hospitalizing Provider. tw4 04:24 No provider procedures requiring assistance completed. Patient admitted, IV remains in jb4 place. Administered Medications: 02:30 Drug: Afrin Drops (0.05 %) 2 sprays Route: Intranasal; Site: both nares; jb4 02:30 Follow up: Response: No adverse reaction; Marked relief of symptoms jb4 Outcome: 03:04 Decision to Hospitalize by Provider. tw4 04:52 Admitted to Tele accompanied by tech, via stretcher, room 417, with chart, Report jb4 called to ALTAF Guzman 04:52 Condition: stable 04:52 Discharge instructions given to patient, Instructed on the need for admit, Demonstrated understanding of instructions. 04:53 Patient left the ED. jb4 Signatures: Dispatcher [employer] EDMS Leesa Mota RN RN Jalen Townsend RN RN sg Bryson, James, RN RN jb4 Deon Velazquez MD MD tw4 Christine Cobb [facility] Corrections: (The following items were deleted from the chart) 03:13 03:00 Reassessment: Patient and/or family updated on plan of care and expected mw duration. Pain level reassessed. Patient is alert, oriented x 3, equal unlabored respirations, skin warm/dry/pink. Pt no longer bleeding after Afrin administration. mw 03:13 02:00 BP 145 / 48; Pulse 55bpm; Resp 16bpm; Pulse Ox 100% Non-rebreather mask; mw mw
--- NOTE | 2020-04-16 03:04 | P.HP ---
Certification for Inpatient Patient admitted to: Inpatient With expected LOS: >2 Midnights Patient will require the following post-hospital care: None Practitioner: I am a practitioner with admitting privileges, knowledge of patient current condition, hospital course, and medical plan of care. Services: Services provided to patient in accordance with Admission requirements found in Title 42 Section 412.3 of the Code of Federal Regulations <Ward Benjamin - Last Filed: 04/16/20 03:39> Patient admitted to: Observation With expected LOS: <2 Midnights <Josiah Hulland - Last Filed: 04/16/20 11:20> Patient History Date of Service: 04/16/20 Reason for admission: Acute hypoxic respiratory failure/hemoptysis History of Present Illness: 74-year-old male with a past medical history of recent diagnosis of coated pneumonia, chronic hypoxic respiratory failure on 2-3 L nasal cannula home O2, severe COPD, diabetes mellitus, hypertension, hyperlipidemia, bipolar, cardiac stents and congestive heart failure is sent by the [facility] to the emergency room with complaints of hemoptysis and difficulty breathing. In the emergency room patient is found to have an active nosebleed. He also has hemoptysis. Patient is also requiring greater O2 support. At the [facility] where he resides he usually is on 2-3 L nasal cannula. Currently patient is requiring a Venturi non-rebreather at 50% on 10 L of oxygen support with oxygen saturations of 88%. Emergency room lab work shows a white cell count of 7.4, hemoglobin of 11, hematocrit of 33.6, creatinine of 1.33, usual baseline is 1.0-1.2. The CRP in the pro calcitonin are pending. Temperature of 97.3, respiratory rate of 18, pulse of 78 and a blood pressure 174/76. Patient was diagnosed with Covid pneumonia last month. He was discharged from the hospital on March 29, 2020. On physical exam patient is at his baseline with mentation. He is alert and oriented x2, cooperative and pleasant. In no distress. He is having active nose bleeding, hemoptysis. Has bilateral lung crackles and is requiring more O2 support the and the 2-3 L nasal cannula that he is usually [facility] of the chest is pending. Patient will be admitted and further evaluated. Home medications list reviewed: No - Past Medical/Surgical History Diabetic: Yes -: Severe COPD -: DM NIDDM -: HTN -: High cholesterol -: Bipolar -: CHF -: Heart stents Psychosocial/ Personal History: [facility] resident - Family History Mother -: Stroke Notes: Stroke - Social History Smoking Status: Never smoker Alcohol use: No CD- Drugs: No Caffeine use: No Place of Residence: [facility] ([facility]) <Ward Benjamin - Last Filed: 04/16/20 03:39> Date of Service: 04/16/20 <Javier Hull - Last Filed: 04/16/20 11:20> Allergies caffeine Allergy (Verified 03/12/19 22:27) Anaphylaxis codeine Allergy (Verified 03/12/19 22:27) Anaphylaxis Home Medications: Acetaminophen [Pain Relief] 650 mg PO Q6HP PRN 04/16/20 Albuterol Neb [Proventil 0.083% Neb Soln] 1 dose NEB TID 04/16/20 Alprazolam [Xanax] 0.5 mg PO Q8HP PRN 04/16/20 Amiodarone HCl [Cordarone*] 200 mg PO DAILY 04/16/20 Atorvastatin Calcium [Lipitor*] 10 mg PO BEDTIME 04/16/20 Betaxolol HCl [Betagan] 1 drop EACH EYE BID 04/16/20 Brimonidine Tartrate/Timolol [Combigan 0.2%-0.5% Eye Drops] 1 drop EACH EYE BID 04/16/20 Budesonide/Formoterol Fumarate [Symbicort 80-4.5 Mcg Inhaler] 2 puff IH DAILY 04/16/20 Buspirone HCl [Buspar] 10 mg PO TID 04/16/20 Insulin Degludec [Tresiba Flextouch U-100] 60 units SQ DAILY 04/16/20 Phenol [Chloraseptic] 2 spray PO Q4HP PRN 04/16/20 Rivaroxaban [Xarelto] 20 mg PO DAILY 04/16/20 Sitagliptin Phosphate [Januvia*] 100 mg PO DAILY 04/16/20 Venlafaxine HCl [Effexor Xr] 75 mg PO DAILY 04/16/20 Zinc Sulfate [Zinc Sulfate*] 220 mg PO DAILY 04/16/20 acetaZOLAMIDE [Diamox*] 250 mg PO DAILY 04/16/20 carvediloL [Carvedilol] 6.25 mg PO BID 04/16/20 Review of Systems General: As per HPI Eyes: Unremarkable ENT: Unremarkable Respiratory: Cough, Shortness of Breath Cardiovascular: Unremarkable Gastrointestinal: Unremarkable Genitourinary: Unremarkable Musculoskeletal: Unremarkable Integumentary: Rash (Right butt cheek) Neurological: Unremarkable Lymphatics: Unremarkable <Ward Benjamin - Last Filed: 04/16/20 03:39> Physical Examination - Vital Signs Temperature: 97.3 F Blood Pressure: 174/76 Pulse: 78 Respirations: 18 Pulse Ox (%): 88 (venturi) - Physical Exam General: Alert, In no apparent distress, Oriented x2 HEENT: Atraumatic, Normocephalic, PERRLA, Mucous membr. moist/pink Neck: Supple, Other (Trachea midline) Respiratory: Diminished, Crackles/rales (Bilateral) Cardiovascular: Normal pulses, Regular rate/rhythm, Normal S1 S2 Capillary refill: <2 Seconds Gastrointestinal: Normal bowel sounds, Soft and benign, Non-distended Musculoskeletal: No clubbing, No swelling, No contractures, No erythema Integumentary: Rash(es) (Bilateral gluteal area), Skin breakdown (Right mid gluteal area), Tenderness/swelling, Erythema Neurological: Normal speech, Normal strength at 5/5 x4 extr, Normal tone - Studies Laboratory Data (last 24 hrs) 04/16/20 01:20: PT 17.6 H, INR 1.50, APTT 39.2 H 04/16/20 01:20: WBC 7.4, Hgb 11.0 L, Hct 33.6 L, Plt Count 132 L 04/16/20 01:20: Sodium 138, Potassium 4.3, BUN 19 H, Creatinine 1.33 H, Glucose 139 H, Magnesium 2.0, Total Bilirubin 0.2, AST 9 L, ALT 14, Alkaline Phosphatase 60, Lipase 93 <Ward Benjamin - Last Filed: 04/16/20 03:39> - Studies Laboratory Data (last 24 hrs) 04/16/20 01:20: PT 17.6 H, INR 1.50, APTT 39.2 H 04/16/20 01:20: WBC 7.4, Hgb 11.0 L, Hct 33.6 L, Plt Count 132 L 04/16/20 01:20: Sodium 138, Potassium 4.3, BUN 19 H, Creatinine 1.33 H, Glucose 139 H, Magnesium 2.0, Total Bilirubin 0.2, AST 9 L, ALT 14, Alkaline Phosphatase 60, Lipase 93 <Javier Hull - Last Filed: 04/16/20 11:20> Assessment and Plan - Plan Impression: Acute on chronic hypoxic respiratory failure complicated by a recent diagnosis of Covid PNA: Hemoptysis with epistaxis currently on Xarelto anticoagulation: Type 2 diabetes mellitus: Essential hypertension: Hyperlipidemia: Bipolar disorder: Plan: Acute on chronic hypoxic respiratory failure complicated by a recent diagnosis of Covid PNA: Patient usually is [facility] 2[facility] L [facility]. Currently on a Venturi non-rebreather at 50% on 10 L with oxygen saturations of 88%. Patient drops to 86%. Patient had a recent diagnosis of Covid PNA middle of March 2020. Will start IV methylprednisolone, ascorbic acid, thiamine and melatonin. Will consult pulmonology. Patient is noted to have bilateral crackles. CRP and procalcitonin pending. Started patient on Levaquin 500 mg daily due to crackles and prior diagnosis of pneumonia. Hemoptysis with epistaxis currently on Xarelto anticoagulation: Patient currently on Xarelto anticoagulation. He is noted to have hemoptysis likely secondary to epistaxis. Patient was given Afrin and nose plug in the ED which better controlled the epistaxis. Will hold off on anticoagulation. Hemoglobin of 11 with a hematocrit of 36 on arrival. Monitor labs. Type 2 diabetes mellitus: Will start diabetic diet. Accu-Cheks a.c. HS. Sliding scale insulin. Will resume home medications once verified. Essential hypertension: Blood pressure stable. Will resume all medications once verified. Hyperlipidemia: Will resume all medications once verified. Bipolar disorder: Patient is at his baseline. Alert oriented x2. Cooperative and pleasant. In no distress. Will resume all medications once verified. Discharge Plan: [facility] ([place] avail in) Plan to discharge in: Greater than 2 days - Advance Directives Does patient have a Living Will: No Does patient have a Durable POA for Healthcare: Yes - Code Status/Comfort Care Code Status Assessed: Yes Time Spent Managing Pts Care (In Minutes): 55 <Ward Benjamin - Last Filed: 04/16/20 03:39> - Plan Agree with physician physical therapist assistant. Case discussed in detail. Agree with plan of care. Patient with acute on chronic respiratory failure with hypoxia and hypercapnia with end-stage COPD and recent diagnosis of COVID. Patient now with pulmonary embolism per CT scan. Patient with history of chronic atrial fibrillation. Will discuss further with pulmonology. Medications adjusted. Continue with progress note recommendations. <Javier Hull - Last Filed: 04/16/20 11:20>
--- NOTE | 2020-04-16 03:04 | EDPHYS ---
Physician Documentation [facility] Name: Michael Duncan Age: 74 yrs Sex: Male : 1945 Arrival Date: 04/16/2020 Time: 00:44 Bed 30 Private MD: ED Physician Deon Velazquez HPI: 04/16 02:59 This 74 yrs old Male presents to ER via EMS with complaints of hemoptysis. tw4 02:59 The patient or guardian reports cough. The patient or guardian reports cough, with tw4 productive sputum, that is bloody. Onset: The symptoms/episode began/occurred today. Severity of symptoms: At their worst the symptoms were moderate. Modifying factors: The symptoms are alleviated by nothing, the symptoms are aggravated by nothing. Associated signs and symptoms: Pertinent positives:. The patient has not experienced similar symptoms in the past. recently diagnosed with covid. Historical: - Allergies: 00:56 caffiene; sg 00:56 Codeine; sg - Home Meds: 00:56 Xarelto 20 mg Oral tab 1 tab once daily [Active]; venlafaxine 75 mg Oral cp24 1 cap sg once daily [Active]; amlodipine 5 mg tab 1 tab once daily [Active]; amiodarone 200 mg Oral tab 1 tab once daily [Active]; clonidine HCl 0.1 mg Oral tab 1 tab 2 times per day [Active]; Januvia 100 mg Oral tab 1 tab once daily [Active]; levothyroxine 75 mcg tab 1 tab once daily [Active]; - PMHx: 00:56 Bipolar disorder; COPD; Diabetes - NIDDM; High Cholesterol; Hypertension; sg - Immunization history:: Adult Immunizations up to date. - Social history:: Smoking status: Patient denies any tobacco usage or history of. ROS: 02:59 Constitutional: Negative for fever, chills, and weight loss, Eyes: Negative for injury, tw4 pain, redness, and discharge, Cardiovascular: Negative for chest pain, palpitations, and edema. 02:59 Abdomen/GI: Negative for abdominal pain, nausea, vomiting, diarrhea, and constipation, Back: Negative for injury and pain, MS/Extremity: Negative for injury and deformity, Skin: Negative for injury, rash, and discoloration, Neuro: Negative for headache, weakness, numbness, tingling, and seizure. 02:59 Respiratory: Positive for cough, hemoptysis, Negative for dyspnea on exertion, shortness of breath, wheezing. Exam: 02:59 Constitutional: This is a well developed, well nourished patient who is awake, alert, tw4 and in no acute distress. Head/Face: Normocephalic, atraumatic. Chest/axilla: Normal chest wall appearance and motion. Nontender with no deformity. No lesions are appreciated. Cardiovascular: Regular rate and rhythm with a normal S1 and S2. No gallops, murmurs, or rubs. Normal PMI, no JVD. No pulse deficits. Abdomen/GI: Soft, non-tender, with normal bowel sounds. No distension or tympany. No guarding or rebound. No evidence of tenderness throughout. Back: No spinal tenderness. No costovertebral tenderness. Full range of motion. MS/ Extremity: Pulses equal, no cyanosis. Neurovascular intact. Full, normal range of motion. Neuro: Awake and alert, GCS 15, oriented to person, place, time, and situation. Cranial nerves II-XII grossly intact. Motor strength 5/5 in all extremities. Sensory grossly intact. Cerebellar exam normal. Normal gait. Vital Signs: 00:48 BP 174 / 76; Pulse 78; Resp 18 S; Temp 97.3; Pulse Ox 100% on 15% Non-rebreather mask; sg 02:00 BP 145 / 48; Pulse 57; Resp 16; Pulse Ox 92% on Non-rebreather mask; jb4 02:45 BP 95 / 76; Pulse 57; Resp 16; Pulse Ox 100% on Non-rebreather mask; jb4 04:00 BP 147 / 58; Pulse 58; Resp 15; Pulse Ox 99% on 3 lpm NC; jb4 MDM: 00:50 Patient medically screened. tw4 02:59 Differential Diagnosis: Bronchitis Viral Syndrome Pneumonia Other epistaxis. Data tw4 reviewed: vital signs, nurses notes. Data reviewed: lab test result(s), cardiac enzymes, CBC, electrolytes, hepatic panel, radiologic studies, plain films. Data interpreted: Pulse oximetry: Interpretation: hypoxia. Plan: O2 by Mask applied. Counseling: I had a detailed discussion with the patient and/or guardian regarding: the historical points, exam findings, and any diagnostic results supporting the discharge/admit diagnosis, lab results, radiology results. Physician consultation: Ward REES was called at 02:50, was contacted at 02:50, regarding admission, to the telemetry unit. and will see patient in the [facility]. 04/16 00:51 Order name: Blood Culture Adult (2) 04/16 00:51 Order name: BMP; Complete Time: 02:56 04/16 00:51 Order name: CBC with Diff; Complete Time: 02:56 04/16 00:51 Order name: Ckmb; Complete Time: 02:56 04/16 00:51 Order name: CPK; Complete Time: 02:56 04/16 00:51 Order name: Hepatic Function; Complete Time: 02:56 04/16 00:51 Order name: Lipase; Complete Time: 02:56 04/16 00:51 Order name: Magnesium; Complete Time: 02:56 04/16 00:51 Order name: NT PRO-BNP; Complete Time: 02:56 04/16 00:51 Order name: PT-INR; Complete Time: 02:56 04/16 00:51 Order name: Ptt, Activated; Complete Time: 02:56 04/16 00:51 Order name: Troponin (emerg Dept Use Only); Complete Time: 02:56 04/16 03:11 Order name: Procalcitonin; Complete Time: 04:42 04/16 03:11 Order name: CRP; Complete Time: 04:42 04/16 04:42 Interpretation: Abnormal: C-REACTIVE PROT 9.95. 04/16 00:51 Order name: XRAY CXR (1 view) 04/16 00:51 Order name: EKG; Complete Time: 00:51 04/16 00:51 Order name: Cardiac monitoring; Complete Time: 02:19 04/16 00:51 Order name: EKG - Nurse/Tech; Complete Time: 02:19 04/16 00:51 Order name: IV Saline Lock; Complete Time: 02:19 04/16 00:51 Order name: Labs collected and sent; Complete Time: 02:19 04/16 00:51 Order name: O2 Per Protocol; Complete Time: 02:19 04/16 00:51 Order name: O2 Sat Monitoring; Complete Time: 02:19 04/16 02:56 Order name: CT Chest For PE Angio 04/16 03:29 Order name: CONS Physician Consult EDAK EC:03 Rate is 56 beats/min. Rhythm is regular. QRS [place] is Normal. NE interval is normal. QRS tw4 interval is normal. QT interval is normal. No Q waves. T waves are Inverted in leads III, V4, V5. No ST changes noted. Clinical impression: Sinus bradycardia. Interpreted by me. Reviewed by me. Administered Medications: 02:30 Drug: Afrin Drops (0.05 %) 2 sprays Route: Intranasal; Site: both nares; 4 02:30 Follow up: Response: No adverse reaction; Marked relief of symptoms jb4 Disposition: 04/16/20 03:04 Hospitalization ordered by Ward Benjamin for Inpatient Admission. Preliminary diagnosis are Hemoptysis, Coronavirus infection, unspecified, Hypoxemia. - Bed requested for Telemetry/MedSurg (Inpatient). - Status is Inpatient Admission. jb4 - Condition is Fair. - Problem is new. - Symptoms are unchanged. Signatures: Dispatcher [employer] EDAK Leesa Mota RN RN Jalen Townsend RN RN sg Bryson, James, RN RN [employer] [facility] [employer] Deon Velazquez MD MD tw4 Corrections: (The following items were deleted from the chart) 03:31 03:04 Hospitalization Ordered by Ward REES for Inpatient Admission. Preliminary diagnosis is Hemoptysis; Coronavirus infection, unspecified; Hypoxemia. Bed requested for Telemetry/MedSurg (Inpatient). Status is Inpatient Admission. Condition is Fair. Problem is new. Symptoms are unchanged. tw4 04:53 03:31 04/16/2020 03:04 Hospitalization Ordered by Ward REES for Inpatient jb4 Admission. Preliminary diagnosis is Hemoptysis; Coronavirus infection, unspecified; Hypoxemia. Bed requested for Telemetry/MedSurg (Inpatient). Status is Inpatient Admission. Condition is Fair. Problem is new. Symptoms are unchanged. rhea
[2020-04-16] MEDS ORDERED: Levofloxacin500mg IV 500 MG/100 ML BAG IV SCH (04:00)
[2020-04-16 05:51] VITALS: BMI 32.5
[2020-04-16 06:09] LABS: Arterial Blood Carboxyhemoglob 1.4 % (0-1.5); Blood Gas Oxyhemoglobin 94.3 % (94-97); Blood O2 Saturation 96.6 % (92-98.5)
[2020-04-16 06:57] LABS: Urine Appearance CLEAR; Urine Bilirubin NEGATIVE (NEG); Urine Blood 2+ (NEG); Urine Color YELLOW; Urine Glucose NEGATIVE (NEG); Urine Protein 2+ (NEG); Urine Specific Gravity >=1.030 (1.005-1.030); Urine Urobilinogen 0.2 mg/dL (0.2-1.0)
[2020-04-16 07:21] LABS: Urine Microscopic Reflex ORDER UMIC
[2020-04-16 07:27] LABS: Urine Bacteria NONE SEEN /HPF (NONE SEEN); Urine Culture Reflex Order NOT NEEDED
[2020-04-16] MEDS: INSULIN -REGULAR HUMAN 50 UNIT/0.5 ML ML SQ SCH ×4 (07:30→21:26)
[2020-04-16] MEDS: THIAMINE HCL 100 MG TABLET PO SCH (07:37)
[2020-04-16] MEDS: ASCORBIC ACID 500 MG TABLET PO SCH (07:37)
[2020-04-16] MEDS ORDERED: GLUCAGON 1 MG/VIAL IM PRN (08:22)
[2020-04-16] MEDS ORDERED: D50W 25 GM/50 ML SYRINGE/VIAL IV PRN (08:22)
[2020-04-16] MEDS ORDERED: HOME MED 1 EA UNK (Buspirone Hcl [Buspar] 10 MG) PO SCH (09:00)
[2020-04-16] MEDS ORDERED: HOME MED 1 EA UNK (Brimonidine Tartrate/Timolol [Combigan 0.2%-0.5% Eye Drops] 1 DROP) EACH EYE SCH (09:00)
[2020-04-16] MEDS: DULERA 100/5 (MOMETASONE/FORMOTEROL) INHALER IH SCH ×2 (09:00→10:53)
[2020-04-16] MEDS ORDERED: METHYLPREDNISOLONE 40 MG INJ IV SCH (09:00)
[2020-04-16] MEDS ORDERED: BETAXOLOL HCL EACH EYE SCH (09:00)
[2020-04-16] MEDS: SITAGLIPTIN PHOS 100 MG TAB PO SCH (09:06)
[2020-04-16] MEDS: BUSPIRONE HCL 5 MG TABLET PO SCH ×3 (09:06→19:49)
[2020-04-16] MEDS: VENLAFAXINE HCL XR 75 MG CAP PO SCH (09:07)
[2020-04-16] MEDS: acetaZOLAMIDE 250 MG TAB PO SCH (09:07)
[2020-04-16] MEDS: carvediloL 6.25 MG TAB PO SCH ×2 (09:08→19:50)
[2020-04-16] MEDS: ZINC SULFATE 220 MG CAP PO SCH (09:08)
[2020-04-16] MEDS: AMIODARONE HCL 200 MG TAB PO SCH (09:08)
[2020-04-16 10:23] LABS: Arterial Blood Carboxyhemoglob 1.6 % (0-1.5); Blood Gas Oxyhemoglobin 91.2 % (94-97); Blood O2 Saturation 93.7 % (92-98.5)
--- NOTE | 2020-04-16 11:07 | P.CNS ---
Date of Consult: 04/16/20 (Telephone visit) Chief Complaint: Acute hypoxic respiratory failure/hemoptysis History of Present Illness: Patient is 74 years of age recurrent hospital admissions he is chronic hypoxemic hypercapnic respiratory failure multiple medical problems including COPD diabetes hypertension cornea artery disease AFib came in with an active nose bleed he is on home oxygen recent history of amin virus pneumonia is currently stable still hypoxic hypercapnic Allergies caffeine Allergy (Verified 03/12/19 22:27) Anaphylaxis codeine Allergy (Verified 03/12/19 22:27) Anaphylaxis Home Medications: Acetaminophen [Pain Relief] 650 mg PO Q6HP PRN 04/16/20 Albuterol Neb [Proventil 0.083% Neb Soln] 1 dose NEB TID 04/16/20 Alprazolam [Xanax] 0.5 mg PO Q8HP PRN 04/16/20 Amiodarone HCl [Cordarone*] 200 mg PO DAILY 04/16/20 Atorvastatin Calcium [Lipitor*] 10 mg PO BEDTIME 04/16/20 Betaxolol HCl [Betagan] 1 drop EACH EYE BID 04/16/20 Brimonidine Tartrate/Timolol [Combigan 0.2%-0.5% Eye Drops] 1 drop EACH EYE BID 04/16/20 Budesonide/Formoterol Fumarate [Symbicort 80-4.5 Mcg Inhaler] 2 puff IH DAILY 04/16/20 Buspirone HCl [Buspar] 10 mg PO TID 04/16/20 Insulin Degludec [Tresiba Flextouch U-100] 60 units SQ DAILY 04/16/20 Phenol [Chloraseptic] 2 spray PO Q4HP PRN 04/16/20 Rivaroxaban [Xarelto] 20 mg PO DAILY 04/16/20 Sitagliptin Phosphate [Januvia*] 100 mg PO DAILY 04/16/20 Venlafaxine HCl [Effexor Xr] 75 mg PO DAILY 04/16/20 Zinc Sulfate [Zinc Sulfate*] 220 mg PO DAILY 04/16/20 acetaZOLAMIDE [Diamox*] 250 mg PO DAILY 04/16/20 carvediloL [Carvedilol] 6.25 mg PO BID 04/16/20 - Past Medical/Surgical History Diabetic: Yes -: Severe COPD -: DM NIDDM -: HTN -: High cholesterol -: Bipolar -: CHF -: Heart stents Psychosocial/ Personal History: [facility] resident - Family History Mother Medical History: Stroke Notes: Stroke - Social History Smoking Status: Unknown if ever smoked Alcohol use: No CD- Drugs: No Caffeine use: No Place of Residence: [facility] Physical Examination Temp Pulse Resp BP Pulse Ox 97.8 F 61 18 147/65 H 96 04/16/20 08:00 04/16/20 09:08 04/16/20 08:00 04/16/20 09:08 04/16/20 08:00 Laboratory Data (last 24 hrs) 04/16/20 01:20: PT 17.6 H, INR 1.50, APTT 39.2 H 04/16/20 01:20: WBC 7.4, Hgb 11.0 L, Hct 33.6 L, Plt Count 132 L 04/16/20 01:20: Sodium 138, Potassium 4.3, BUN 19 H, Creatinine 1.33 H, Glucose 139 H, Magnesium 2.0, Total Bilirubin 0.2, AST 9 L, ALT 14, Alkaline Phosphatase 60, Lipase 93 - Problems (1) Respiratory failure Current Visit: No Status: Acute Plan: Patient is 74 years of age admitted with nosebleed he has chronic hypercapnic respiratory failure due to his full code status. Recommend trial of BiPAP chronic renal insufficiency CRP level is less than 10 no evidence of for a amin virus infection on his CT scan he has some pleural effusion on the right side is probably chronic white count is normal no evidence of active sepsis he will need nebulize long-acting bronchodilators at home history of an inhaler may also qualify for noninvasive ventilator at home Patient has chronic respiratory failure secondary to severe COPD and needs noninvasive positive pressure ventilation to prevent hospital readmission patient will benefit from trilogy volume ventilator far nocturnal and daytime uses needed to reduce the risk of hospitalization BiPAP he has insufficient due to the severity of the patient's condition subsegmental pulmonary emboli and noted continue with anticoagulation may have been induced by his recent amin virus infection Qualifiers: Respiratory failure complication: hypoxia and hypercapnia
--- NOTE | 2020-04-16 11:18 | P.PN ---
Subjective Date of Service: 04/16/20 Primary Care Provider: Jeff MCCOY Chief Complaint: Acute hypoxic respiratory failure/hemoptysis Subjective: Improving, Doing well Physical Examination - Vital Signs Temperature: 97.8 F Blood Pressure: 147/65 Pulse: 61 Respirations: 18 Pulse Ox (%): 96 - Physical Exam General: Alert, In no apparent distress, Cooperative HEENT: Atraumatic, Other (Dry nasal blood noted. Dry mucous membranes.) Neck: Supple Respiratory: Expiratory wheezes Cardiovascular: Normal pulses, Regular rate/rhythm Neurological: Normal speech, Normal strength at 5/5 x4 extr, Normal tone, Normal affect - Studies Laboratory Data (last 24 hrs) 04/16/20 01:20: PT 17.6 H, INR 1.50, APTT 39.2 H 04/16/20 01:20: WBC 7.4, Hgb 11.0 L, Hct 33.6 L, Plt Count 132 L 04/16/20 01:20: Sodium 138, Potassium 4.3, BUN 19 H, Creatinine 1.33 H, Glucose 139 H, Magnesium 2.0, Total Bilirubin 0.2, AST 9 L, ALT 14, Alkaline Phosphatase 60, Lipase 93 Medications List Reviewed: Yes Assessment & Plan Discharge Plan: Skilled Nursing Plan to discharge in: 24 Hours Physician Review Additional Text: Impression: Acute on chronic respiratory failure with hypoxia and hypercapnia secondary to end-stage COPD with prior admission for COVID 19 infection now complicated with pulmonary emboli Hemoptysis with epistaxis likely related to medication Chronic atrial fibrillation on chronic anti coalition therapy Type 2 diabetes mellitus insulin-dependent Essential hypertension Hyperlipidemia Bipolar disorder Plan: Acute on chronic respiratory failure with hypoxia and hypercapnia secondary to end-stage COPD with prior admission for COVID 19 infection now complicated with pulmonary emboli: Case discussed with pulmonology. Patient doing well this time. Currently on 2 L per nasal cannula. Will continue COPD treatment. Will need to discuss advanced care planning and advanced directives with patient and family. Patient with end-stage COPD. Patient will require Brovana at discharge. Pulmonology recommends no steroid treatment at this time. If the patient remains full code then will pursue noninvasive ventilator to be used at night. If DNR then patient may not require noninvasive ventilator. Patient will continue with Xarelto due to pulmonary embolism and chronic atrial fibrillation. Maintain sats above 93%. Continue with pulmonology recommendations. No need for antibiotic therapy at this time. Anticipate discharge tomorrow. Hemoptysis with epistaxis likely related to medication: Patient will need a continue with Xarelto due to pulmonary emboli and chronic atrial fibrillation. Risks and benefits addressed. Will recommend humidified air to help with this. Will monitor closely. Chronic atrial fibrillation on chronic anti coagulation therapy: Continue Xarelto. Risk and benefits addressed. Restart home medication amiodarone Type 2 diabetes mellitus insulin-dependent: Continue with sliding scale. Restart home medication Essential hypertension: Continue home medication. Hyperlipidemia: Continue home medication. Bipolar disorder: Continue home medication Time Spent Managing Pts Care (In Minutes): 55
--- NOTE | 2020-04-16 11:20 | RAD REPORT ---
EXAM DESCRIPTION: Luis Eduardo Single View04/16/2020 2:12 am CLINICAL HISTORY: HEMOPTYSIS COMPARISON: March 2020 FINDINGS: Mild right basilar atelectasis with small pleural effusion Remainder lungs appear clear of acute infiltrate. Heart is mildly enlarged
[2020-04-16 14:14] LABS: Arterial Blood Carboxyhemoglob 1.6 % (0-1.5); Blood Gas Oxyhemoglobin 80.8 % (94-97); Blood O2 Saturation 82.9 % (92-98.5)
[2020-04-16] MEDS ORDERED: RIVAROXABAN 20 MG TABLET PO SCH (17:00)
[2020-04-16] MEDS: ARFORMOTEROL TARTRATE 15 MCG/2 ML VIAL.NEB NEB SCH (20:05)
[2020-04-16] MEDS ORDERED: ATORVASTATIN 10 MG TAB PO SCH (21:00)
[2020-04-16] MEDS ORDERED: INSULIN GLARGINE 100 UNITS/ML SQ SCH (21:00)
[2020-04-16] MEDS ORDERED: MELATONIN 3 MG TABLET PO SCH (21:00)
[2020-04-16] MEDS: ALPRAZOLAM 0.5 MG TABLET PO PRN (21:46)
[2020-04-17 04:35] LABS: C-Reactive Protein 7.61 mg/L (<3.00); Ferritin 91.9 ng/mL (26-388)
[2020-04-17] MEDS: INSULIN -REGULAR HUMAN 50 UNIT/0.5 ML ML SQ SCH ×2 (07:30→11:07)
[2020-04-17] MEDS: ARFORMOTEROL TARTRATE 15 MCG/2 ML VIAL.NEB NEB SCH (07:35)
[2020-04-17] MEDS: acetaZOLAMIDE 250 MG TAB PO SCH (08:25)
[2020-04-17] MEDS: VENLAFAXINE HCL XR 75 MG CAP PO SCH (08:25)
[2020-04-17] MEDS: BUSPIRONE HCL 5 MG TABLET PO SCH (08:25)
[2020-04-17] MEDS: carvediloL 6.25 MG TAB PO SCH (08:25)
[2020-04-17] MEDS: THIAMINE HCL 100 MG TABLET PO SCH (08:25)
[2020-04-17] MEDS: ZINC SULFATE 220 MG CAP PO SCH (08:26)
[2020-04-17] MEDS: SITAGLIPTIN PHOS 100 MG TAB PO SCH (08:26)
[2020-04-17] MEDS: AMIODARONE HCL 200 MG TAB PO SCH (08:26)
[2020-04-17] MEDS: ASCORBIC ACID 500 MG TABLET PO SCH (08:26)
--- NOTE | 2020-04-17 08:53 | P.DS ---
Admission Date: 04/16/20 Discharge Date: 04/17/20 Primary Care Provider: Jeff MCCOY Disposition: ROUTINE DISCHARGE Discharge Condition: GOOD Reason for Admission: Acute hypoxic respiratory failure/hemoptysis Consultations: Pulmonary-Dr. Almaguer Procedures: CT Scan: 1. Suggestion of few small segmental/subsegmental pulmonary emboli. No heart strain. No saddle embolus. 2. Small right pleural effusion with associated pleural thickening. 3. Areas of atelectasis Medical Problem List: Acute on chronic respiratory failure with hypoxia and hypercapnia secondary to end-stage COPD with prior admission for COVID 19 infection now complicated with small segmental/subsegmental pulmonary emboli Hemoptysis with epistaxis likely related to medication Chronic atrial fibrillation on chronic anti coagulation therapy Type 2 diabetes mellitus insulin-dependent Essential hypertension Hyperlipidemia Bipolar disorder Brief History of Present Illness: 74-year-old male presented to the emergency room with increasing shortness of breath and bleeding from the nasal region. Patient takes anti coagulation therapy for atrial fibrillation. Patient with history of COPD. Patient admitted for further evaluation and treatment. Hospital Course: Patient presented with acute on chronic respiratory failure with hypoxia and hypercapnia. This was secondary to end-stage COPD. Patient recently admitted for COVID 19 infection. This has remained stable. CT scan revealed small subsegmental and segmental pulmonary emboli. Patient was admitted for further evaluation and treatment. Case discussed with pulmonology who was consulted. Pulmonology recommended to continue Xarelto 20 mg daily. Patient has underlying chronic atrial fibrillation. No further intervention was required. Patient has done well. Patient on home oxygen and has non invasive ventilator at the facility where he stays. At discharge patient will continue with home oxygen to maintain sats above 93%. Patient will continue with non invasive ventilator to be use as needed for shortness of breath. Patient primarily uses this during the day. Medications have been adjusted. Patient will no longer take Symbicort and Albuterol. Pulmonology also recommends instead to start Brovana 1 unit dose twice daily and Xopenex 1 unit dose 3 times a day as needed for shortness of breath. This will be used with nebulizer. At discharge patient will also continue with prednisone 10 mg daily for 7 days. Patient also takes Diamox 250 mg daily. At discharge patient will go back to the facility were he stays. Recommend follow up with pulmonology in 1 week to monitor his progress and further adjust his medication. Patient also had some hemoptysis and epistaxis. This resolved. Patient was restarted on Xarelto for his atrial fibrillation and pulmonary embolism. Recommendation was to do use humidified air. He has done well with humidified air. This may be continued at discharge. Patient with underlying chronic atrial fibrillation on chronic anti coagulation therapy. At discharge patient will continue with his medications including amiodarone 200 mg daily and Xarelto 20 mg daily. Recommend follow up with cardiology in 2-4 weeks to monitor his care. Education on Xarelto provided and educated. Patient with diabetes mellitus type 2 insulin dependent. At discharge patient will continue with his current medications including Tresiba 60 mg daily and Januvia 100 mg daily. Recommend to maintain blood sugar less than 140 fasting and less than 200 after meals. Further adjustment can be done by his PCP. May need to discontinue Januvia if patient has hypoglycemia. Further adjustment in insulin may be required and addressed by his PCP. Patient with hyperlipidemia. At discharge patient will continue with Lipitor 10 mg daily. Patient with bipolar disorder. At discharge she will continue with his medications including Buspar 10 mg 1 pill 3 times a day and Effexor XR 75 mg daily. Patient also takes Xanax 0.5 mg 3 times a day as needed for anxiety. Patient with recent COVID infection. At discharge patient will continue with current CDC guidelines. Vital Signs/Physical Exam: Temp Pulse Resp BP Pulse Ox 98.2 F 102 H 18 176/173 H 98 04/17/20 08:00 04/17/20 08:25 04/17/20 08:00 04/17/20 08:25 04/17/20 08:00 General: Alert, In no apparent distress, Cooperative HEENT: Atraumatic Neck: Supple Respiratory: Clear to auscultation bilaterally, Normal air movement Cardiovascular: Normal pulses Gastrointestinal: Normal bowel sounds Neurological: Normal speech, Normal strength at 5/5 x4 extr, Normal tone, Normal affect Laboratory Data at Discharge: WBC 7.4 K/uL (4.3-10.9) 04/16/20 01:20 Hgb 11.0 g/dL (13.6-17.9) L 04/16/20 01:20 Hct 33.6 % (39.6-49.0) L 04/16/20 01:20 Plt Count 132 K/uL (152-406) L 04/16/20 01:20 PT 17.6 SECONDS (9.5-12.5) H 04/16/20 01:20 INR 1.50 04/16/20 01:20 APTT 39.2 SECONDS (24.3-36.9) H 04/16/20 01:20 Sodium 138 mmol/L (136-145) 04/16/20 01:20 Potassium 4.3 mmol/L (3.5-5.1) 04/16/20 01:20 BUN 19 mg/dL (7-18) H 04/16/20 01:20 Creatinine 1.33 mg/dL (0.55-1.3) H 04/16/20 01:20 Glucose 139 mg/dL (74-106) H 04/16/20 01:20 Magnesium 2.1 mg/dL (1.8-2.4) 04/16/20 06:20 Total Bilirubin 0.2 mg/dL (0.2-1.0) 04/16/20 01:20 AST 9 U/L (15-37) L 04/16/20 01:20 ALT 14 U/L (12-78) 04/16/20 01:20 Alkaline Phosphatase 60 U/L (45-117) 04/16/20 01:20 Lipase 93 U/L (73-393) 04/16/20 01:20 Home Medications: Acetaminophen 650 mg PO Q6HP PRN 04/16/20 Alprazolam [Xanax] 0.5 mg PO Q8HP PRN 04/16/20 Amiodarone HCl [Cordarone*] 200 mg PO DAILY 04/16/20 Atorvastatin Calcium [Lipitor*] 10 mg PO BEDTIME 04/16/20 Betaxolol HCl [Betagan] 1 drop EACH EYE BID 04/16/20 Brimonidine Tartrate/Timolol [Combigan 0.2%-0.5% Eye Drops] 1 drop EACH EYE BID 04/16/20 Buspirone HCl [Buspar] 10 mg PO TID 04/16/20 Insulin Degludec [Tresiba Flextouch U-100] 60 units SQ DAILY 04/16/20 Phenol [Chloraseptic] 2 spray PO Q4HP PRN 04/16/20 Rivaroxaban [Xarelto] 20 mg PO DAILY 04/16/20 Sitagliptin Phosphate [Januvia*] 100 mg PO DAILY 04/16/20 Venlafaxine HCl [Effexor Xr] 75 mg PO DAILY 04/16/20 Zinc Sulfate [Zinc Sulfate*] 220 mg PO DAILY 04/16/20 acetaZOLAMIDE [Diamox*] 250 mg PO DAILY 04/16/20 carvediloL [Carvedilol] 6.25 mg PO BID 04/16/20 Arformoterol Tartrate [Brovana] 15 mcg NEB BIDRESP #60 vial.neb 04/17/20 Levalbuterol HCl [Xopenex] 3 ml IH TID PRN #90 vial.neb 04/17/20 predniSONE [Deltasone*] 10 mg PO DAILY #7 tab 04/17/20 New Medications: Arformoterol Tartrate [Brovana] 15 mcg NEB BIDRESP #60 vial.neb predniSONE [Deltasone*] 10 mg PO DAILY #7 tab Levalbuterol HCl [Xopenex] 3 ml IH TID PRN #90 vial.neb PRN Reason: Shortness Of Breath Patient Discharge Instructions: 1. Follow up with PCP in 1 week to follow up this hospitalization. 2. Patient presented with acute on chronic respiratory failure with hypoxia and hypercapnia. This was secondary to end-stage COPD. Patient recently admitted for COVID 19 infection. This has remained stable. CT scan revealed small subsegmental and segmental pulmonary emboli. Patient was admitted for further evaluation and treatment. Case discussed with pulmonology who was consulted. Pulmonology recommended to continue Xarelto 20 mg daily. Patient has underlying chronic atrial fibrillation. No further intervention was required. Patient has done well. Patient on home oxygen and has non invasive ventilator at the facility where he stays. At discharge patient will continue with home oxygen to maintain sats above 93%. Patient will continue with non invasive ventilator to be use as needed for shortness of breath. Patient primarily uses this during the day. Medications have been adjusted. Patient will no longer take Symbicort and Albuterol. Pulmonology also recommends instead to start Brovana 1 unit dose twice daily and Xopenex 1 unit dose 3 times a day as needed for shortness of breath. This will be used with nebulizer. At discharge patient will also continue with prednisone 10 mg daily for 7 days. Patient also takes Diamox 250 mg daily. At discharge patient will go back to the facility were he stays. Recommend follow up with pulmonology in 1 week to monitor his progress and further adjust his medication. 3. Patient also had some hemoptysis and epistaxis. This resolved. Patient was restarted on Xarelto for his atrial fibrillation and pulmonary embolism. Recommendation was to do use humidified air. He has done well with humidified air. This may be continued at discharge. 4. Patient with underlying chronic atrial fibrillation on chronic anti coagulation therapy. At discharge patient will continue with his medications including amiodarone 200 mg daily and Xarelto 20 mg daily. Recommend follow up with cardiology in 2-4 weeks to monitor his care. Education on Xarelto provided and educated. 5. Patient with diabetes mellitus type 2 insulin dependent. At discharge patient will continue with his current med ications including Tresiba 60 mg daily and Januvia 100 mg daily. Recommend to maintain blood sugar less than 140 fasting and less than 200 after meals. Further adjustment can be done by his PCP. May need to discontinue Januvia if patient has hypoglycemia. Further adjustment in insulin may be required and addressed by his PCP. 6. Patient with hyperlipidemia. At discharge patient will continue with Lipitor 10 mg daily. 7. Patient with bipolar disorder. At discharge she will continue with his medications including Buspar 10 mg 1 pill 3 times a day and Effexor XR 75 mg daily. Patient also takes Xanax 0.5 mg 3 times a day as needed for anxiety. 8. Patient with recent COVID infection. At discharge patient will continue with current CDC guidelines. Diet: ADA Activity: Fall precautions Time spent managing pt's care (in minutes): 55
[2020-04-17] MEDS: ALPRAZOLAM 0.5 MG TABLET PO PRN (09:15)
--- NOTE | 2020-04-17 11:07 | RAD REPORT ---
EXAM DESCRIPTION: CT - Chest For Pe Angio - 04/16/2020 7:22 am CLINICAL HISTORY: The patient is 74 years old and is Male; Hemoptysis;Cough;COPD TECHNIQUE: Axial computed tomographic angiography images of the chest with intravenous contrast. S agittal and coronal reformatted images were created and reviewed. This CT exam was performed using one or more of the following dose reduction techniques: automated exposure control, adjustment of t he mA and/or kV according to patient size, and/or use of iterative reconstruction technique. MIP reconstructed images were created and reviewed. COMPARISON: No relevantNprior studies available. FINDINGS: ARTIFACTS: The exam is suboptimal secondary to motion artifact. PULMONARY ARTERIES: Suggestion of a few small segmental/subsegmental pulmonary thromboemboli wit hin the bilateral upper, bilateral lower, right middle, lingular pulmonary artery branches. There is no saddle embolus. AORTA: No acute findings. No thoracic aortic aneurysm. LUNGS: Large calcified granuloma within the right middle lobe is present. Areas of atelectasis a nd scarring throughout the right lung and left lower lobe are present. PLEURAL SPACE: A small right pleural effusion with associated pleural thickening is present. N o pneumothorax. HEART: Unremarkable. No cardiomegaly. No significant pericardial effusion. No evidence of RV dysfunction. MEDIASTINUM: Food contents are present within the upper esophagus. The tracheobronchial tree i s widely patent. BONES/JOINTS: Multilevel degenerative change of the spine is present. No acute fracture. No dislocation. SOFT TISSUES: Unremarkable. LYMPH NODES: Unremarkable. No enlarged lymph nodes. IMPRESSION: 1. Suggestion of a few small segmental/subsegmental pulmonary thromboemboli. However, evaluation is limited secondary to motion artifact. There is no saddle embolus. There is no findings to suggest right heart strain. Consider repeat imaging/follow-up. 2. Small right pleural effusion with associated pleural thickening. 3. Areas of likely atelectasis in the lung bases. However, given the appearance of the right develo ping infiltrate is within the differential. 4. Contents located within the proximal esophagus. THIS REPORT CONTAINS FINDINGS THAT MAY BE CRITICAL TO PATIENT CARE: Notification that the physician was unable to speak on the phone occurred at 04/16/2020 6:42 AM CDT. I discussed the findings with Karla Collins RN who agreed to take the results on the phone on behalf of the physician, and acknowledg es their critical nature. Electronically signed by: Lucy Lopez MD 04/16/2020 6:42 AM CDT Due to temporary technical issues with the PACS/Fluency reporting system, reports are being signed by the in house radiologist without review as a courtesy to ensure prompt reporting. The interpreting r adiologist is fully responsible for the content of the report.
[2020-04-17 11:08] VITALS: BP 179/63; TEMP 96.8
[2020-04-17 11:09] VITALS: O2SAT 97
--- NOTE | 2020-04-17 12:55 | P.PN ---
Subjective Date of Service: 04/17/20 Primary Care Provider: Jeff MCCOY Chief Complaint: Chronic respiratory failure Subjective: Improving (Patient is improving doing well currently he has a noninvasive ventilator at the care home) Physical Examination - Vital Signs Temperature: 96.8 F Blood Pressure: 179/63 Pulse: 60 Respirations: 18 Pulse Ox (%): 97 - Studies Medications List Reviewed: Yes Assessment & Plan - Problems (Diagnosis) (1) Respiratory failure Current Visit: No Status: Acute Plan: Patient is doing much better is chronic respiratory failure agree with nebulized long-acting bronchodilators ovoid inhalers continue with noninvasive ventilator at home titrate sat to 90% hemodynamically stable stable for discharge cultures are negative Qualifiers: Respiratory failure complication: hypoxia and hypercapnia Physician Review Additional Text: Impression: Acute on chronic respiratory failure with hypoxia and hypercapnia secondary to end-stage COPD with prior admission for COVID 19 infection now complicated with pulmonary emboli Hemoptysis with epistaxis likely related to medication Chronic atrial fibrillation on chronic anti coalition therapy Type 2 diabetes mellitus insulin-dependent Essential hypertension Hyperlipidemia Bipolar disorder Plan: Acute on chronic respiratory failure with hypoxia and hypercapnia secondary to end-stage COPD with prior admission for COVID 19 infection now complicated with pulmonary emboli: Case discussed with pulmonology. Patient doing well this time. Currently on 2 L per nasal cannula. Will continue COPD treatment. Will need to discuss advanced care planning and advanced directives with patient and family. Patient with end-stage COPD. Patient will require Brovana at discharge. Pulmonology recommends no steroid treatment at this time. If the patient remains full code then will pursue noninvasive ventilator to be used at night. If DNR then patient may not require noninvasive ventilator. Patient will continue with Xarelto due to pulmonary embolism and chronic atrial fibrillation. Maintain sats above 93%. Continue with pulmonology recommendations. No need for antibiotic therapy at this time. Anticipate discharge tomorrow. Hemoptysis with epistaxis likely related to medication: Patient will need a continue with Xarelto due to pulmonary emboli and chronic atrial fibrillation. Risks and benefits addressed. Will recommend humidified air to help with this. Will monitor closely. Chronic atrial fibrillation on chronic anti coagulation therapy: Continue Xarelto. Risk and benefits addressed. Restart home medication amiodarone Type 2 diabetes mellitus insulin-dependent: Continue with sliding scale. Restart home medication Essential hypertension: Continue home medication. Hyperlipidemia: Continue home medication. Bipolar disorder: Continue home medication
== END 2020-04-17 13:41 | DRG 189 ==
LOC: ER 00:38 → ERHOLD 03:32 → 4TH 04:31
PROVIDERS: ADMIT Family Medicine; ATTEND Family Medicine
PROC: 5A09457 Assistance with Respiratory Ventilation, 24-96 Consecutive Hours, Continuous Positive Airway Pressure (ICD-10-PCS; principal; 2020-04-16)
DX: J96.21 Acute and chronic respiratory failure with hypoxia (principal); I26.99 Other pulmonary embolism without acute cor pulmonale; R04.2 Hemoptysis; I48.20 Chronic atrial fibrillation, unspecified; J96.22 Acute and chronic respiratory failure with hypercapnia; E11.9 Type 2 diabetes mellitus without complications; E78.5 Hyperlipidemia, unspecified; F31.9 Bipolar disorder, unspecified; I10 Essential (primary) hypertension; J44.9 Chronic obstructive pulmonary disease, unspecified; R04.0 Epistaxis; T50.905A Adverse effect of unspecified drugs, medicaments and biological substances, initial encounter; Z88.5 Allergy status to narcotic agent; Z91.09 Other allergy status, other than to drugs and biological substances; Z79.01 Long term (current) use of anticoagulants; Z79.899 Other long term (current) drug therapy; Z79.890 Hormone replacement therapy; Z99.81 Dependence on supplemental oxygen; Z95.5 Presence of coronary angioplasty implant and graft; Z79.4 Long term (current) use of insulin; Z86.19 Personal history of other infectious and parasitic diseases
CPT/HCPCS: 36415; 71045; 71275; 80048; 80076; 81003; 81015; 82550; 82553; 82728; 82805; 82947; 83690; 83735; 83880; 84145; 84484; 85025; 85379; 85610; 85730; 86140; 87040; 87804; 93005; 94640; 94660; 94760; 99285; J1815; J2920; J7605; J7606; Q9967

== ENCOUNTER 2021-02-14 18:19 | Inpatient (IN) | payer OTHER ==
--- OUTSIDE RECORDS SUMMARY | 2021-02-14 18:27 | XMS REPORT | Continuity of Care Document ---
:1945 Author Organization [facility] t Address [address] [place] [address] Care Team Providers Name Role Phone Cherie Murphy Attending Clinician Chadwick Rodriguez III Attending Clinician Lakhwinder Rapp Attending Clinician Jam Tracy Jr Attending Clinician Lai Gold Attending Clinician Mariza Attending Clinician Cherie Murphy Admitting Clinician Lakhwinder Rapp Admitting Clinician Jean Maradiaga Admitting Clinician Marzia Admitting Clinician Problems Condition Condition Condition Status [...] Mem oria 02-17 16:39:00 l AMS 00:00: Brule 00 Active 02/17/2015 [facility] SOB Diagnosis Active 2013-092015-05-19 Mem oria 0-08 09:41:00 l SOB 00:00: Brule 00 Active 06/08/2014 [facility] Bipolar Problem Resolve 2017-06-13 Mem oria (qualifier d 00:54:32 l value) Bipolar [place] (qualifier value) Resolved Problem 06/13/2017 [facility] Outpatient Imaging [facility] Acute Problem Resolve 2017-06-13 David cedrick congestive d 00:54:32 l heart Acute Brule failure congestive (disorder) heart failure (disorder) Resolved Problem 06/13/2017 [facility]patient [facility] Chronic Problem Resolve 2017-06-13 Mem oria obstructiv d 00:54:32 l e lung Chronic [place] disease obstructiv (disorder) e lung disease (disorder) Resolved Problem 06/13/2017 [facility]patient [facility] Hypertensi Problem Resolve 2017-06-13 Memoria ve d 00:54:32 l disorder, Brule systemic Hypertensi arterial ve (disorder) disorder, systemic arterial (disorder) Resolved Problem 06/13/2017 [facility] Outpatient Imaging [facility] Schizophre Problem Resolve 2017-06-13 Memoria boubacar d 00:54:32 l (disorder) Rudy n Schizophre boubacar (disorder) Resolved Problem 06/13/2017 [facility]patient [facility] Aortic Problem Resolve 2017-06-13 David cedrick aneurysm d 00:54:32 l (disorder) Aortic Herm deepa aneurysm (disorder) Resolved Problem 06/13/2017 [facility] Peptic Problem Resolve 2017-06-13 David cedrick ulcer with d 00:54:32 l hemorrhage Peptic Herm deepa (disorder) ulcer with hemorrhage (disorder) Resolved Problem 06/13/2017 [facility] Anxiety Problem Active 2017-06-13 David cedrick (finding) 00:54:32 l Anxiety Brule (finding) Active Problem 06/13/2017 [facility] Outpatient Imaging [facility] Arthritis Problem Active 2017-06-13 Me moria (disorder) 00:54:32 l [place] Arthritis (disorder) Active Problem 06/13/2017 [facility]patient Imaging [facility] Depressive Problem Active 2017-06-13 M emoria disorder 00:54:32 l (disorder) Rudy n Depressive disorder (disorder) Active Problem 06/13/2017 [facility] Outpatient Imaging [facility] Diabetes Problem Active 2017-06-13 Mem oria mellitus 00:54:32 l (disorder) Diabetes He rmann mellitus (disorder) Active Problem 06/13/2017 [facility] Outpatient Imaging [facility] Gastroesop Problem Active 2017-06-13 M emoria hageal 00:54:32 l reflux Brule disease Gastroesop (disorder) hageal reflux disease (disorder) Active Problem 06/13/2017 [facility] Outpatient Imaging [facility] Glaucoma Problem Active 2017-06-13 Mem oria (disorder) 00:54:32 l Glaucoma Rudy n (disorder) Active Problem 06/13/2017 [facility] Outpatient Imaging [facility] Narcosis Problem Active 2017-06-13 Mem oria (finding) 00:54:32 l Narcosis Rudy n (finding) Active Problem 06/13/2017 [facility] Outpatient Imaging [facility] Hyperlipid Problem Active 2017-06-13 M emoria emia 00:54:32 l (disorder) Rudy n Hyperlipid emia (disorder) Active Problem 06/13/2017 [facility] CHR AIRWAY Diagnosis Active 2015-05-19 Memoria OBSTRUCT 09:41:00 l NEC CHR Brule AIRWAY OBSTRUCT NEC Active [facility] ALTERED Diagnosis Active 2015-02-20 Me moria MENTAL 16:39:00 l STATUS ALTERED Brule MENTAL STATUS Active [facility] UNSPECIFIE Diagnosis Active 2017-04-03 Memoria D OPEN 16:00:00 l WOUND, Brule RIGHT UNSPECIFIE FOOT, SUBS D OPEN WOUND, RIGHT FOOT, SUBS Active [facility] NON-PRS Diagnosis Active 2015-09-18 Ne moria CHRONIC 16:01:00 l ULCER OTH NON-PRS Herm deepa PRT RIGHT CHRONIC FOOT ULCER OTH PRT RIGHT FOOT Active [facility] TYPE 2 Diagnosis Active 2015-11-22 Mem oria DIABETES W 08:18:00 l DIABETIC TYPE 2 Rudy n PERIPHERAL DIABETES W AN DIABETIC PERIPHERAL AN Active [facility] TINEA Diagnosis Active 2016-05-07 Mem oria UNGUIUM 16:57:00 l TINEA Brule UNGUIUM Active [facility] NON-PRS Diagnosis Active 2016-01-09 Ne moria CHRONIC 15:34:00 l ULCER OTH NON-PRS Herm deepa PRT R FOOT CHRONIC STREET ULCER OTH PRT R FOOT STREET Active [facility] TYPE 2 Diagnosis Active 2016-05-07 Mem oria DIABETES 16:57:00 l MELLITUS TYPE 2 Rudy n WITH DIABETES DIABETIC P MELLITUS WITH DIABETIC P Active [facility] CORNS AND Diagnosis Active 2016-05-07 Memoria CALLOSITIE 16:57:00 l S CORNS [place] AND CALLOSITIE S Active [facility] MUSCLE Diagnosis Active 2016-07-29 Mem oria WEAKNESS 15:57:00 l (GENERALIZ MUSCLE Herm deepa ED) WEAKNESS (GENERALIZ ED) Active [facility] CHOLECYSTI Diagnosis Active 2017-11-11 Memoria TIS, 12:12:00 l UNSPECIFIE Rudy n D CHOLECYSTI TIS, UNSPECIFIE D Active [facility] Type 2 Type [address] [facility] diabetes diabetes [facility] - mellitus mellitus Memori a without without l complicati complicati Ou tpati on, on, ent unspecifie unspecifie Cl inics d whether d whether half-way half-way insulin insulin use use Congestive Congestive Problem [...] [facility] - while while Memoria walking walking [facility] Chronic Chronic Problem Active [facility] kidney kidney [facility] - disease, disease, Memori a unspecifie unspecifie l d CKD d CKD [facility] Hypocalcem Hypocalcem Problem Active [facility] - Memoria l [facility] Generalize Generalize Problem Active [facility] d muscle d muscle [facility] - weakness weakness Memori a l [facility] Generalize Generalize Problem Active [facility] d weakness d weakness Jade kes - Memoria l [facility] 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 Memori a l [facility] History of Past Illness Condition Condition Condition Status Onset Resolution Last Treating Co mments Source Name Details Category Date Date Treatment Clinician Date Discharge Problem 2016-06-02 2016-06-02 Memoria Diagnosis: 05-30 03:26:48 03:26:48 l Fatigue 05:00: [place] Discharge 00 Diagnosis: Fatigue 05/30/2016 06/02/2016 [facility] Discharge Problem 2016-06-02 2016-06-02 Memoria Diagnosis: 05-30 03:26:48 03:26:48 l Acute 05:00: [place] renal Discharge 00 insufficie Diagnosis: ncy Acute renal insufficie ncy 05/30/2016 06/02/2016 [facility] Discharge Problem 2016-06-02 2016-06-02 Memoria Diagnosis: 05-30 03:26:48 03:26:48 l Dehydratio 05:00: Rudy n n Discharge 00 Diagnosis: Dehydratio n 05/30/2016 06/02/2016 [facility] Allergies, Adverse Reactions, Alerts Allergy Allergy Status Severity Reaction(s) Onset Inactive Treating Comm ents Source Name Type Date Date Clinician codeine codeine Active Barney Magaña caffeine caffeine Active Memori a l [place] codeine Adverse Active Info Not [facility] Reaction Available [facility] Social History Social Habit Start Date Stop Date Quantity Comments Source Social History 2016-05-30 2016-05-30 Mary colbert 15:36:53 15:36:53 Medications Ordered Filled Start Stop Current Ordering Indication Dosage Frequency Signature Comments Components Source Medication Medication Date Date Medication? Clinician (SIG) Name Name Carvedilol Carvedilol Yes Jenna [address] [facility] 9-26 Millender [facility] - 00:00: [facility]oria 00 l [facility] Glucometer Glucometer Yes Jenna one strip [facility] test strips test strips 9-16 Millender using the [facility] - 00:00: [employer] Memoria 00 Metric l glucometer [facility] Albuterol Albuterol 2017-09 Yes Jenna [address] [facility] Sulfate Sulfate 2-18 Millender needed Jade kes - 00:00: Memoria 00 l [facility] fluconazole 2016-09 Yes 200 mg = 2 Memoria 100 mg oral 0-10 tab, PO, l tablet 21:09: [id number], 0 Padmini nn 00 Refill(s) Saline 2016-09 No 10 mL, Memoria Flush 0.9% 0-10 Route: l 21:00: IVP, Drug Brule 00 Form: INJ, Dosing Weight 118.682, kg, Q8H, Start date: 06/10/17 16:00:00 CDT, Duration: 30 day, Stop date: 07/10/17 8:00:00 PHLEBOTOMIST LAB ASSISTANT Lidocaine 2016-09 No Notes: Memori a Hydrochlori 0-10 Preservati l de 10 MG/ML 21:00: ve free. He rmann Injectable 00 (Same as: Solution Xylocaine MPF) Saline 2016-09 No Notes: Memoria Flush 0.9% 0-10 (Same as: l 20:41: BD [place] 00 Posiflush) Lidocaine 2016-09 No 5 mL, Memoria Hydrochlori 0-10 Route: l de 10 MG/ML 19:00: INTRADERM, Brule Injectable 00 Dosing Solution Weight 118.682, kg, ONCALL, Start date: 06/10/17 14:00:00 CDT, Duration: 30 day, Stop date: 07/10/17 12:59:00 PHLEBOTOMIST LAB ASSISTANT BD Normal 2016-09 No Notes: Memori a Saline 0-10 (Same as: l Flush 19:00: BD [place] 00 Posiflush) Saline 2016-09 No Notes: Memoria Flush 0.9% 0-10 (Same as: l 18:26: BD [place] 00 Posiflush) Lidocaine 2016-09 No Notes: Memori a Hydrochlori 0-10 Preservati l de 10 MG/ML 18:00: ve free. He rmann Injectable 00 (Same as: Solution Xylocaine MPF) Saline 2016-09 No Notes: Memoria Flush 0.9% 0-10 (Same as: l 17:59: BD Brule 00 Posiflush) Protonix 2016-09 No Notes: Memoria 0-09 Tablet l 21:30: should not G[place]me[place] 00 be chewed or crushed. (Same as: Protonix) Miralax 2016-09 No Notes: Memoria 0-09 Dissolve l 17:11: in 8 oz of Brule 00 water or juice. (Same as: Miralax) [...] cedrick 0-03 (Same as: l 07:17: Apresoline Brule 00 ) Push over 5 minutes Diflucan 2016-09 No Notes: Memoria 0-01 (Same as: l 20:00: Diflucan) Brule 00 Lasix 2016-09 No Notes: Memoria 0-01 (Same as: l 15:04: Lasix) [place] 00 Diflucan No Notes: Memoria 9-30 (Same as: l 22:00: Diflucan) Brule 00 Do not refrigerat e Flagyl No Notes: Memoria 05-31 (Same as: l 21:00: Flagyl) Avoid alcohol. Lovenox No 30 mg, Memoria 05-30 Route: l 18:00: SUB-Q, Drug form: INJ, [id number], Dosing Weight 118.682, kg, For CrCl <30mL/min, [...] 05-25 (Same as: l / 16:00: Duoneb) [place] Ipratropium 00 [place] 0.167 MG/ML Inhalant Solution Budesonide No Notes: Memor ia 0.25 MG/ML 05-25 (Same As: l Inhalant 12:57: Pulmicort) Her andujar Solution 00 [Pulmicort] Budesonide No Notes: Memor ia 0.25 MG/ML 05-25 (Same As: l Inhalant 01:00: Pulmicort) Her andujar Solution 00 [Pulmicort] Dextrose No 50 mL, Memoria 50% in 05-25 Route: l Water IV 00:24: IVP, Start Her andujar 00 date: 05/24/17 19:24:00 CDT, Stop date: 05/24/17 19:24:00 CDT Dextrose No 25 gm, Memoria 05-24 Route: l 23:34: IVPB, Brule 00 ONCE, Dosing Weight 118.682, kg, Start date: 05/24/17 18:34:00 CDT, Stop date: 05/24/17 18:34:00 CDT Insulin No 15 unit, Memori a regular 05-24 Route: IV, l 23:23: ONCE, G[place]me[place] 00 Dosing Weight 118.682, kg, Priority: NOW, Start [...] mL IM) Shake well before use Januvia No Notes: Memoria 05-24 (Same as: l 14:00: Januvia) omega-3 No Notes: Memoria polyunsatur 05-24 (Same as: l ated fatty 14:00: MaxEPA, Herm deepa acids [place] 3 fish oil ) Non-Formul genaro Drug Vitamin D3 No Notes: Memor ia 05-24 Same as : l 14:00: Vitamin D3 venlafaxine No Notes: David cedrick 05-24 (Same As: l 14:00: Effexor) Albuterol No Notes: Memori a 0.833 MG/ML 05-24 (Same as: l / 13:46: Duoneb) Brule Ipratropium 00 [place] 0.167 MG/ML Inhalant Solution [DuoNeb] tiotropium No Notes: Memor ia 0.018 05-24 (Same As: l MG/ACTUAT 13:00: Spiriva). Her andujar Inhalant 00 Powder [Spiriva] Thyroxine No Notes: Memori a - Take 1 l 11:30: hour G[place]mez 00 before or 2 hours after meal; Enteral feeds may interefere with the absorption of this medication .(Same as:Levothr oid, Synthroid) 24 HR No Notes: Memoria Divalproex 05-24 (Same as: l Sodium 500 02:00: Depakote Her andujar MG Extended 00 ER) Once Release daily Tablet dosing; indicated for migraines. Divalproe x sodium extended-r elease tab. Do not chew or crush. "Do Not Crush" Trazodone No Notes: Memori a 05-24 (Same As: l 02:00: Desyrel) Brule 00 Risperidone No Notes: David cedrick 05-24 (Same as: l 02:00: Risperdal) latanoprost No Notes: David cedrick 0.05 MG/ML [...] cedrick 05-24 (Same as: l 02:00: Tricor) Ipratropium No Notes: SEE Memoria 05-24 RT l 00:00: DOCUMENTAT [place]mez ION (Same as:Atroven t) Zosyn + No Notes: Memoria sodium 05-23 (Same as: l chloride 22:00: Zosyn) Brule 0.9% INJ 00 Dosing 100 mL based [...] Memoria 05-23 Route: IV, l 21:00: Q8H, G[place]mez Dosing Weight 109.545, kg, Start date: 05/23/17 [...] a 05-23 (Same As: l 18:00: BuSpar) [place] Aspirin No Notes: Do Memor ia 05-23 not crush l 18:00: or chew. Brule (Same As: Ecotrin) Amlodipine No Notes: Memor [...] - tab, PO, l Tablet 16:29: Daily, tab, 0 Refill(s) 24 HR Yes 500 mg = 1 Memori a Divalproex -22 tab, PO, l Sodium 500 16:29: Bedtime, # H ermann MG Extended 30 tab, 0 Release Refill(s) Tablet Zosyn + No Notes: Memoria sodium 05-23 (Same as: l chloride 16:00: Zosyn) Gómez [...] 9-22 mL, Route: l 14:57: IVP, Drug G[place]mez 00 form: SOLN, Q4H, Dosing Weight 109.545, kg, PRN Pain Score 7-10, Priority: STAT, Start date: 05/23/17 9:57:00 CDT, Stop date: 06/22/17 9:56:00 CDT Zofran No Notes: Memoria - (Same as: l 14:57: Zofran) G[place]me[place] MEDICATION WASTE Product Size: 4 mg Product Wasted: ___ mg Morphine No 4 mg, Memoria 05-23 Route: l 14:27: IVP, ONCE, Brule Dosing Weight 109.545, kg, Priority: STAT, Start date: 05/23/17 9:27:00 CDT, Stop date: 05/23/17 9:27:00 CDT Omnipaque No 45 Memoria 300 9-22 mL/min, l injectable 11:50: STAT, Rudy n solution 00 Start date: 05/23/17 6:50:00 CDT, Duration: 1 doses or times Morphine No Notes: Memoria - (Same l 11:10: as:MORPhin Brule 00 e Sulfate) Saline No Notes: Memoria Flush 0.9% 05-23 (Same as: l 11:09: BD G[place]me[place] Posiflush) tiotropium 2015-09 No Notes: Memor ia 0.018 09-28 (Same As: l MG/ACTUAT 15:00: Spiriva). [facility] andujar Inhalant 00 Powder [Spiriva] One-A-Day 2015-09 No 1 tab, Memori a Men 50 Plus 09-28 Route: PO, l 15:00: Dosing Brule 00 Weight 109.545, kg, Daily, Start date: 07/29/16 9:00:00 PHLEBOTOMIST LAB ASSISTANT, Duration: 30 day, Stop date: 08/27/16 9:00:00 PHLEBOTOMIST LAB ASSISTANT Aspirin 2015-09 No 81 mg, Memoria 09-28 Route: PO, l 15:00: Daily, G[place]mez 00 Dosing Weight 109.545, kg, Start date: 07/29/16 9:00:00 PHLEBOTOMIST LAB ASSISTANT, Duration: 30 day, Stop date: 08/27/16 9:00:00 PHLEBOTOMIST LAB ASSISTANT Levemir 2015-09 No Notes: Memoria FlexPen 09-28 Same as l 03:00: Levemir Do not hold insulin without contacting prescriber WASTE: F/P - Black; E - Municipal Trash Bin "single patient use only" Trazodone 2015-09 No Notes: Memori a 09-28 (Same As: l 03:00: Desyrel) [place] Risperidone 2015-09 No Notes: David cedrick 09-28 (Same as: l 03:00: Risperdal) Brule latanoprost 2015-09 No Notes: David cedrick 0.05 MG/ML 09-28 Keep l Ophthalmic 03:00: refrigerat H ermann Solution 00 ed. (Same as:Xalatan ) Insulin 2015-09 No 30 unit, Memori a Glargine 09-28 Route: l 100 UNT/ML 03:00: SUB-Q, Padmini nn Injectable 00 Drug form: Solution SOLN, [Lantus] Bedtime, Dosing Weight 109.545, kg, Start date: 07/28/16 21:00:00 PHLEBOTOMIST LAB ASSISTANT, Duration: 30 day, Stop date: 08/26/16 21:00:00 PHLEBOTOMIST LAB ASSISTANT Docusate 2015-09 No Notes: Memoria Sodium 100 09-27 (Same as: l MG Oral 23:00: Colace) Brule Capsule (Do Not Crush) Brimonidine 2015-09 No Notes: David cedrick tartrate 09-27 (Same As: l 1.5 MG/ML 23:00: Alphagan) Her andujar Ophthalmic 00 Solution Betaxolol 2015-09 No 2 drp, Memori a 2.5 MG/ML 09-27 Route: l Ophthalmic 23:00: BOTH EYES, H ermann Suspension 00 BID, Drug [Betoptic form: S] SUSP, Start date: 07/28/16 17:00:00 PHLEBOTOMIST LAB ASSISTANT, Duration: 30 day, Stop date: 08/27/16 9:00:00 PHLEBOTOMIST LAB ASSISTANT timolol 2015-09 No Notes: Memoria ophthalmic 09-27 (Same As: l 23:00: Timoptic, G[place]me[place] Betimol) Buspirone 2015-09 No Notes: Memori a - (Same As: l 21:00: BuSpar) [place] 00 Ipratropium 2015-09 No 500 Memori a 09-27 microgram, l 19:00: Route: Brule 00 NEB, QID, Dosing Weight 109.545, kg, Start date: 07/28/16 13:00:00 PHLEBOTOMIST LAB ASSISTANT, Duration: 30 day, Stop date: 08/27/16 9:00:00 PHLEBOTOMIST LAB ASSISTANT Alprazolam 2015-09 No 0.5 mg, David cedrick 09-27 Route: PO, l 19:00: TID, Brule 00 Dosing Weight 109.545, kg, Start date: 07/28/16 13:00:00 PHLEBOTOMIST LAB ASSISTANT, Duration: 30 day, Stop date: 08/27/16 9:00:00 PHLEBOTOMIST LAB ASSISTANT Thyroxine 2015-09 No Notes: Memori a -27 Take 1 l 17:30: hour Brule 00 before or 2 hours after meal; Enteral feeds may interefere with the absorption of this medication .(Same as:Levothr oid, Synthroid) multivitami 2015-09 No Notes: David cedrick n with 09-27 Give with l minerals 17:00: food. Brule 00 (Same As: Stress 600 with Zinc) WASTE: F/P - Black; E - Municipal Trash Bin omega-3 2015-09 No Notes: Memoria polyunsatur 09-27 (Same as: l ated fatty 17:00: Lovaza, Herm deepa acids 00 formally named [place]) "Do Not Crush" Lisinopril 2015-09 No Notes: Memor ia 09-27 (Same as: l 17:00: Prinivil, Brule 00 Zestril) metoprolol 2015-09 No Notes: Memor [...] (Same as: l inhalation 16:32: Symbicort) H erm aerosol 00 WASTE: with Aerosol - adapter [...] Blood Glucose Results, Start date: 07/28/16 10:01:00 PHLEBOTOMIST LAB ASSISTANT, Duration: 30 day, Stop date: 08/27/16 10:00:00 PHLEBOTOMIST LAB ASSISTANT Glucagon 2015-09 No 1 mg, Memoria 09-27 Route: IM, l 16:01: Drug form: Brule 00 PDR/INJ, PRN, Dosing Weight 109.545, kg, PRN Blood Glucose Results, Start date: 07/28/16 10:01:00 PHLEBOTOMIST LAB ASSISTANT, Duration: 30 day, Stop date: 08/27/16 10:00:00 PHLEBOTOMIST LAB ASSISTANT Enoxaparin 2015-09 No Notes: Memor ia 09-27 (Same as: l 16:00: Lovenox) Baclofen 2015-09 No Notes: Memoria - (Same As: l 15:58: Lioresal) G[place]me[place] 00 Saline 2015-09 No Notes: Memoria Flush 0.9% 09-27 (Same as: l 15:00: BD [place] 00 Posiflush) aspirin 81 2015-09 No Notes: Do Me moria mg tablet, 09-27 not crush l enteric 15:00: or chew. Rudy n coated 00 (Same As: Ecotrin) Famotidine 2015-09 No Notes: Memor ia 09-27 (Same as: l 15:00: Pepcid) Alprazolam 2015-09 No Notes: Memor ia 0.5 MG Oral 09-27 With food l Tablet 14:20: or milk Brule [Xanax] 00 (Same as: Xanax) Saline 2015-09 No Notes: Memoria Flush 0.9% 09-27 (Same as: l 07:29: BD G[place] 00 Posiflush) Ondansetron 2015-09 No Notes: David cedrick 09-27 (Same as: l 07:29: Zofran) MEDICATION WASTE Product Size: 4 mg Product Wasted: ___ mg Sodium 2015-09 No 1,000 mL, Memori a Chloride 09-27 Rate: 40 l 0.154 07:29: ml/hr, Brule MEQ/ML 00 Infuse Injectable over: 25 Solution hr, Route: IV, Dosing Weight 97.273 kg, Total Volume: 1,000, Start date: 07/28/16 1:29:00 PHLEBOTOMIST LAB ASSISTANT, Stop date: 08/27/16 1:28:00 PHLEBOTOMIST LAB ASSISTANT Aspirin 2015-09 No Notes: Memoria 27 Take with l 05:47: food. Brule 00 Sodium No 1,000 mL, Memori a Chloride 05-30 1,000 l 0.154 15:49: ml/hr, Gómez MEQ/ML 00 Infuse Injectable Over: 1 Solution hr, Route: IV, 1,000, Drug form: INJ, ONCE, Priority: STAT, Dosing Weight 97.727 kg, Start date: 05/30/16 10:49:00 CDT, Duration: 1 doses or times, Stop date: 05/30/16 10:49:00 CDT Fenofibrate No 200 mg, Mem oria 6-20 Route: PO, l 14:00: Daily, Gómez Dosing Weight 120, kg, Start date: 02/18/15 9:00:00, Duration: 30 day, Stop date: 03/19/15 9:00:00 pantoprazol No Notes: David cedrick e 6-20 Tablet l 14:00: should not Brule 00 be chewed or crushed. (Same as: [...] Memoria 6-20 (Same as: l 02:00: Tricor) Brule Risperidone No Notes: David cedrick 6-20 (Same as: l 02:00: Risperdal) Lisinopril No Notes: Memor ia 6-20 (Same as: l 02:00: Prinivil, Brule Zestril) latanoprost No Notes: David cedrick 0.05 MG/ML 6-20 Keep l Ophthalmic 02:00: refrigerat H ermann Solution 00 ed. (Same as:Xalatan ) Lantus No 30 unit, Memoria 6-20 Route: l 02:00: SUB-Q, Brule 00 Bedtime, Dosing Weight 120, kg, Start date: 02/17/15 21:00:00, Duration: 30 day, Stop date: 03/18/15 21:00:00 Levemir No Notes: Memoria FlexPen 6-20 Same as l 02:00: Levemir Do not hold insulin without contacting prescriber "single patient use only" Saline No Notes: Memoria Flush 0.9% 6-20 (Same as: l 02:00: BD Brule 00 Posiflush) Docusate No Notes: Memoria 6-20 (Same as: l 02:00: Colace) G[place]mez (Do Not Crush) normal No 1,000 mL, Memori a saline 0.9% 6-20 Rate: 200 l IV 1,000 mL 01:44: ml/hr, Herm deepa Infuse over: 5 hr, Route: IV, Dosing Weight 120 kg, Total Volume: 1,000, Start date: 02/17/15 20:44:00, Duration: 30 day, Stop date: 03/19/15 20:43:00 Symbicort No Notes: Memori a 160/4.5 -20 (Same as: l inhalation 01:00: Symbicort) H ermann aerosol 00 with adapter Sodium No 1,000 mL, Memori a Chloride -20 1,000 l 0.154 00:00: ml/hr, Brule MEQ/ML 00 Infuse Injectable Over: 1 Solution hr, Route: IV, ONCE, Priority: STAT, Dosing Weight 120 kg, Start date: 02/17/15 19:00:00, Duration: 1 doses or times, Stop date: 02/17/15 19:00:00 Albuterol No Notes: Memori a 0.833 MG/ML -20 (Same as: l / 00:00: Duoneb) [place] Ipratropium 00 [place] 0.167 MG/ML Inhalant Solution Lactulose No Notes: Memori a 6-19 (Same l 23:00: as:Chronul Gómez 00 ac) Enoxaparin No Notes: Memor ia -19 (Same as: l 22:00: Lovenox) Brimonidine No Notes: David cedrick tartrate 02-17 (Same as: l 1.5 MG/ML 22:00: Alphagan-P He rmann Ophthalmic 00 ) Solution Betaxolol No Notes: Memori a 2.5 MG/ML -19 (Same As: l Ophthalmic 22:00: Betoptic Her andujar Suspension 00 S) [Betoptic S] Aspirin No Notes: Memoria 6-19 Take with l 22:00: food. Gómze 00 Vitamin C No Notes: Memori a 6-19 (Same as: l 22:00: Vitamin C) Brule 00 Amlodipine No Notes: Memor ia 6-19 (Same as: l 22:00: Norvasc) G[place]mez 00 Amiodarone No Notes: Memor ia 6-19 (Same as: l 22:00: Cordarone) Alprazolam No Notes: Memor ia 6-19 With food l 22:00: or milk Brule (Same as: Xanax) venlafaxine No Notes: David cedrick 6-19 (Same As: l 22:00: Effexor) [place] Januvia No Notes: Memoria 6-19 (Same as: l 22:00: Januvia) Brule docusate No Notes: Memoria sodium 100 -19 (Same as: l mg oral 22:00: Colace) G[place]me[place] capsule 00 (Do Not Crush) dexmedetomi No Notes: David cedrick dine 200 6-19 (Same as: l microgram 21:38: Precedex) Her andujar 00 potassium No Notes: Memori a phosphate + 6-19 (Same as: l Sodium 21:37: K Brule Chloride 00 Phosphate. 0.9% IV 250 ) 1 mMol mL phoshate has 1.47 mEq potassium Infuse over 4 hours sodium No Special Memoria phosphate + 6-19 Instructio l Sodium 21:37: ns: FOR Gómez Chloride ICU USE 0.9% IV 250 ONLY mL potassium No Notes: Memori a chloride 6-19 (Same as: l 21:37: Potassium G[place]me[place] 00 Chloride) Calcium No Notes: Memoria Carbonate 6-19 (Same As: l 500 MG 21:37: Tums) Brule Chewable 00 Calcium Tablet Carbonate 500 mg = 200 mg elemental calcium Dose = mg calcium carbonate ( mg elemental calcium) Magnesium No Notes: Memori a Oxide 02-17 (Same as: l 21:37: Mag-Ox 400) Magnesium oxide [id number] g elemental magnesium Dose=____m g magnesium oxide (___mg elemental magnesium) Calcium No Special Memoria Gluconate 02-17 Instructio l 21:37: ns: FOR Gómez 00 ICU USE ONLY Neutra-Phos No Notes: David cedrick 02-17 (Same as: l 21:37: Neutra-Bhupinder s) Each 1.25 gm pkt has 250mg [...] as: l / 21:37: Duoneb) Ipratropium 00 [place] 0.167 MG/ML Inhalant Solution Bisacodyl No Notes: Memori a 02-17 (Same As: l 21:37: Dulcolax, Bisco-Lax) Acetaminoph No Notes: Do M emoria en 02-17 not exceed l 21:37: 4 gm/day. G[place]me[place] 00 (Same as: Tylenol) NovoLOG No Notes: Memoria FlexPen 02-17 Roll in l 21:30: palms of Brule 00 hands gently; Do not shake vigorously . (Same as: NovoLOG) "single patient use only" Stable for 28 days at room temperatur e. Expires in days from ____Date Humalog No 10 unit, Memori a 02-17 Route: l 21:30: SUB-Q, Brule 00 TID-Before Meals, Dosing Weight 120, kg, [...] -19 100 mL, l 16:07: Route: IV, G[place]mez 00 Drug form: INJ, ONCE, Dosing Weight 127.273, kg, Start date: 02/17/15 11:07:00, Stop date: 02/17/15 11:07:00 Ativan No 1 mg, Memoria 02-17 Route: l 16:06: IVP, Drug Brule 00 form: INJ, ONCE, Dosing Weight 127.273, [...] Symbicort Yes 2 puff, Memor ia 160/4.5 6-19 INHALATION l inhalation 15:46: , BID, 0 Her andujar aerosol 00 Refill(s) with adapter tiotropium Yes 18 Memoria 0.018 6-19 microgram, l MG/ACTUAT 15:45: INHALATION He rmann Inhalant 00 , Daily, 0 Powder Refill(s) [Spiriva] Ipratropium Yes 500 Memori a 6-19 microgram, l 15:45: NEB, QID, Brule 00 0 Refill(s) Humalog Yes 10 unit, Memori a 6-19 SUB-Q, l 15:44: TID-Before Meals, 0 Refill(s) Lantus Yes 30 unit, Memoria 6-19 SUB-Q, l 15:44: Bedtime, 0 Brule 00 Refill(s) busPIRone 5 Yes 5 mg = 1 Me moria mg oral 6-19 tab, PO, l tablet 15:43: TID, 0 G[place] 00 Refill(s) venlafaxine Yes 75 mg = 1 M emoria 75 mg oral 6-19 tab, PO, l tablet 15:42: Daily, 0 Brule 00 Refill(s) Alprazolam No 1 mg, PO, Me moria 6-19 Bedtime, 0 l 15:40: Refill(s) Brule 00 docusate Yes 200 mg = 2 Mem oria sodium 100 6-19 cap, PO, l mg oral 15:34: BID, 0 [place] capsule 00 Refill(s) Saline No Notes: Memoria Flush 0.9% 02-17 (Same as: l 14:43: BD Posiflush) Naloxone No Notes: Memoria 6-19 Same as l 14:41: Narcan Albuterol 2013-09 Yes 3 ml, Memoria 0.833 MG/ML 0-11 INHALATION l / 17:55: , QID, # [place] Ipratropium 00 60 ea, 0 [place] Refill(s) 0.167 MG/ML Inhalant Solution [DuoNeb] {21 2013-09 Yes Special Memoria (Methylpred 0-11 Instructio l nisolone 4 17:55: ns: Take Her andujar MG Oral 00 with or Tablet without [Medrol]) } food Pack [Medrol Dosepak] Doxycycline 2013-09 Yes 100 mg = 1 Memoria 100 MG Oral 0-11 cap, PO, l Capsule 17:55: [id number], # Herm deepa 00 14 cap, 0 Refill(s) Prednisone 2013-09 No Notes: Memor ia 0-11 Take with l 14:00: food. G[place] 00 Budesonide 2013-09 No Notes: Memor ia 0.25 MG/ML 0-10 (Same As: l Inhalant 14:28: Pulmicort) Her andujar Solution 00 [Pulmicort] Azithromyci 2013-09 No Notes: David cedrick n 0-10 Same as: l 04:00: Zithromax Brule Fenofibrate 2013-09 No Notes: David cedrick 0-10 (Same as: l 02:00: Tricor) Brule 00 Effexor XR 2013-09 No Notes: Do Me moria 0-09 not open, l 14:00: crush, or G[place] 00 chew. (Same As: Effexor XR) One-A-Day 2013-09 No Notes: Memori a Men 50 Plus 0-09 Give with l 14:00: food. G[place] 00 (Same As: Stress 600 with Zinc) Influenza 2013-09 No Notes: Memori a Virus 0-09 (Same as: l Vaccine, 14:00: Fluzone Rudy n Inactivated 00 [place]) (H3N2)-like virus ([place] [facility] [place] strain / Influenza Virus Vaccine, Inactivated [place]- , IVR-148 (H1N1) strain / Influenza Virus Vaccine, Inactivated , B---lik Furosemide 2013-09 No Notes: Memor ia 0-09 (Same as: l 14:00: Lasix) Brule May cause GI upset. Give with food [...] ia 0-09 (Same as: l 14:00: Norvasc) Brule Amiodarone 2013-09 No Notes: Memor ia 0-09 (Same as: l 14:00: Cordarone) [place] 00 Alprazolam 2013-09 No Notes: Memor ia 0-09 With food l 14:00: or milk Brule 00 (Same as: Xanax) Enoxaparin 2013-09 No Notes: Memor ia 0-09 (Same as: l 13:00: Lovenox) [place] 00 Thyroxine 2013-09 No Notes: Memori a 0-09 Take 1 l 11:30: hour Bru[place] 00 before or 2 hours after meal; Enteral feeds may interefere with the absorption of this medication . (Same as:Levothr oid) Albuterol 2013-09 No Notes: Memori a 0.833 MG/ML 0-09 (Same as: l / 08:00: Duoneb) [place] Ipratropium 00 [place] 0.167 MG/ML Inhalant Solution methylPREDN 2013-09 No [...] a 0-09 (Same As: l 04:38: Desyrel) [place] 00 Risperidone 2013-09 No Notes: David cedrick 0-09 (Same as: l 04:38: Risperdal) [place] metoprolol 2013-09 No Notes: Memor ia tartrate 0-09 (Same as: l 04:37: Lopressor) Brule Lisinopril 2013-09 No Notes: Memor ia 0-09 (Same as: l 04:37: Prinivil, Bru[place] 00 Zestril) Alprazolam 2013-09 No Notes: Memor ia 0-09 With food l 04:35: or milk [place] 00 (Same as: Xanax) Insulin, 2013-09 No Notes: Memoria Aspart, 0-09 Roll in l Human 04:33: palms of Brule 00 hands gently; Do not shake vigorously . [...] 04:18: ns: Unknown eye drops; filled at [facility] in [place] aspirin 2013-09 Yes 81 mg, PO, David [...] as: l / 01:00: Duoneb) Ipratropium 00 [place] 0.167 MG/ML Inhalant Solution [DuoNeb] Saline 2013-09 No Notes: Memoria Flush 0.9% 0-09 (Same as: l 00:26: BD Posiflush) Lisinopril Lisinopril Yes Jenna [address] [facility] Aspirin Aspirin Yes Jenna [address] [facility] Betaxolol Betaxolol Yes Jenna [address] HCl HCl [facility] Lisinopril Lisinopril Yes Jenna [address] [facility] Clonidine Clonidine Yes Jenna TAKE [address] HCl HCl [facility] TABLET BY [facility] TWICE l [facility]ILY [facility] Atorvastati Atorvastati Yes Jenna TAKE [address] [facility] n Calcium n Calcium [facility] TABLET BY [facility] Januvia Januvia Yes Jenna TAKE [address] [facility] TABLET BY [facility] Venlafaxine Venlafaxine Yes Jenna [address] [facility] HCl ER HCl ER [facility] with food [facility] Latanoprost Latanoprost Yes Jenna INT [address] [facility] IN OU [facility]HS. [facility] Trazodone Trazodone Yes Jenna TK [address] [facility] HCl HCl [facility] QHS. [facility] BusPIRone BusPIRone Yes Jenna [address] [facility] [address] HCl HCl [facility] Levothyroxi Levothyroxi Yes Jenna [address] [facility] ne Sodium ne Sodium Millender on an [facility] empty [facility] stomach in l the Outpati morning ent Clinics Venlafaxine Venlafaxine Yes Jenna TAKE [address] [facility] [address] HCl HCl [facility] TABLET BY [facility] EVERY DAY l [facility] FOOD. [facility] Furosemide Furosemide Yes Jenna [address] [facility] BD Pen BD Pen Yes Jenna INJECT [facility] Needle Disha Needle Disha [facility] USING [facility] U/F U/F INSULIN D. [facility] Divalproex Divalproex Yes Jenna as [facility] Sodium ER Sodium ER [facility] directed [facility] Vitamin C Vitamin C Yes Jenna [address] [facility] Docusate Docusate Yes Jenna [address] Sodium Sodium Millender as needed [facility] Xarelto Xarelto Yes Jenna [address] [facility] Baclofen Baclofen Yes Jenna TK 1 T PO [facility] Q 8 H PRN. [facility] Lasix Lasix Yes Jenna [address] [facility] Tresiba Tresiba Yes Jenna [address] [facility]Touch FlexTouch [facility] Amiodarone Amiodarone Yes Jenna TAKE [address] [facility] HCl HCl [facility] TABLET BY [facility] EVERY DAY. l [facility] Risperidone Risperidone Yes Jenna TAKE [address] [facility] TABLETS BY [facility] - MOUTH ONCE Memoria A DAY. l [facility] Symbicort Symbicort Yes Jenna inhale [address] [facility] puffs po [facility] - bid. [facility] l [facility] Amlodipine Amlodipine Yes Jenna TAKE [address] [facility] Besylate Besylate [facility]ender TABLET BY [facility]TH [facility]oria DAILY l [facility] Vital Signs Vital Name Observation Time Observation Value Comments Source Respitory Rate 2017-06-10 22:17:00 Memori al [place] Systolic (mm Hg) 2017-06-10 22:17:00 David rial [place] Diastolic (mm Hg) 2017-06-10 22:17:00 Mem orial [place] Temperature Oral (F) 2017-06-10 22:17:00 98.2 F [facility] [place] Heart Rate 2017-06-10 22:17:00 [facility] [place] Systolic (mm Hg) 2017-06-10 17:00:00 David rial [place] Diastolic (mm Hg) 2017-06-10 17:00:00 Mem orial [place] Respitory Rate 2017-06-10 17:00:00 Memori al [place] Heart Rate 2017-06-10 17:00:00 [facility] [place] Temperature Oral (F) 2017-06-10 17:00:00 98.3 F [facility] [place] Heart Rate 2017-06-10 12:50:00 [facility] [place] Temperature Oral (F) 2017-06-10 12:50:00 98.2 F [facility] [place] Respitory Rate 2017-06-10 12:50:00 Memori al [place] Systolic (mm Hg) 2017-06-10 12:50:00 Daivd rial [place] Diastolic (mm Hg) 2017-06-10 12:50:00 Mem orial [place] BMI Calculated 2017 16:42:00 Memori al [place] Weight 2017 16:42:00 [facility] [place] Height 2017 16:42:00 185.42 cm [facility] [place] BMI Calculated 2017 15:56:00 Memori al [place] Weight 2017 15:56:00 [facility] [place] Height 2017 15:56:00 185.42 cm [facility] [place] BMI Calculated 2017 10:33:00 Memori al [place] Height 2017 10:33:00 185.42 cm [facility] [place] Weight 2017 10:33:00 [facility] [place] Heart Rate 2016-07-30 18:00:00 [facility] [place] Respitory Rate 2016-07-30 18:00:00 Memori al [place] Systolic (mm Hg) 2016-07-30 18:00:00 David rial [place] Diastolic (mm Hg) 2016-07-30 18:00:00 Mem orial [place] Temperature Oral (F) 2016-07-30 18:00:00 97.5 F [facility] [place] Systolic (mm Hg) 2016-07-30 14:00:00 David rial [place] Diastolic (mm Hg) 2016-07-30 14:00:00 Mem orial [place] Heart Rate 2016-07-30 14:00:00 [facility] [place] Respitory Rate 2016-07-30 14:00:00 Memori al [place] Temperature Oral (F) 2016-07-30 14:00:00 97.5 F [facility] [place] Respitory Rate 2016-07-30 13:39:00 Memori al [place] Temperature Oral (F) 2016-07-30 06:19:00 98.1 F [facility] [place] Heart Rate 2016-07-30 06:19:00 [facility] [place] Systolic (mm Hg) 2016-07-30 06:19:00 David rial Brule Diastolic (mm Hg) 2016-07-30 06:19:00 Mem orial [place] Weight 2016-07-28 14:21:00 [facility] [place] Weight 2016-07-28 09:33:00 [facility] [place] Height 2016-07-28 09:33:00 182.88 cm [facility] [place] BMI Calculated 2016-07-28 09:33:00 Memori al [place] Weight 2016-07-28 02:47:00 [facility] [place] BMI Calculated 2016-07-28 02:47:00 Memori al [place] Height 2016-07-28 02:47:00 180.34 cm [facility] [place] Respitory Rate 2016-05-30 18:30:00 Memori al [place] Systolic (mm Hg) 2016-05-30 18:30:00 David rial [place] Diastolic (mm Hg) 2016-05-30 18:30:00 Mem orial [place] Temperature Oral (F) 2016-05-30 18:30:00 98.6 F [facility] [place] Respitory Rate 2016-05-30 18:00:00 Memori al [place] Systolic (mm Hg) 2016-05-30 18:00:00 David rial [place] Diastolic (mm Hg) 2016-05-30 18:00:00 Mem orial [place] Respitory Rate 2016-05-30 17:30:00 Memori al [place] Systolic (mm Hg) 2016-05-30 17:30:00 David rial [place] Diastolic (mm Hg) 2016-05-30 17:30:00 Mem orial [place] Heart Rate 2016-05-30 15:14:00 [facility] [place] BMI Calculated 2016-05-30 14:36:00 Memori al [place] Weight 2016-05-30 14:36:00 [facility] [place] Heart Rate 2016-05-30 14:36:00 [facility] [place] Height 2016-05-30 14:36:00 182.88 cm [facility] [place] Temperature Oral (F) 2016-05-30 14:36:00 98.7 F [facility] [place] Systolic (mm Hg) 2015-02-19 16:00:00 David rial Brule Diastolic (mm Hg) 2015-02-19 16:00:00 Mem orial [place] Respitory Rate 2015-02-19 16:00:00 Memori al [place] Systolic (mm Hg) 2015-02-19 15:00:00 David rial [place] Diastolic (mm Hg) 2015-02-19 15:00:00 Mem orial [place] Respitory Rate 2015-02-19 15:00:00 Memori al [place] Respitory Rate 2015-02-19 14:00:00 Memori al [place] Systolic (mm Hg) 2015-02-19 14:00:00 David rial [place] Diastolic (mm Hg) 2015-02-19 14:00:00 Mem orial [place] Temperature Oral (F) 2015-02-18 22:07:00 97.7 F [facility] [place] Temperature Oral (F) 2015-02-18 16:51:00 98.6 F [facility] [place] Weight 2015-02-18 15:03:00 [facility] [place] Temperature Oral (F) 2015-02-18 12:48:00 98.5 F [facility] [place] Heart Rate 2015-02-17 18:50:00 [facility] [place] Height 2015-02-17 18:41:00 185.42 cm [facility] [place] Weight 2015-02-17 18:41:00 [facility] [place] BMI Calculated 2015-02-17 18:41:00 Memori al [place] Heart Rate 2015-02-17 17:52:00 [facility] [place] Heart Rate 2015-02-17 17:34:00 [facility] [place] Weight 2015-02-17 14:33:00 [facility] [place] BMI Calculated 2015-02-17 14:33:00 Memori al [place] Height 2015-02-17 14:33:00 185.42 cm [facility] [place] Diastolic (mm Hg) 2014-06-11 17:24:00 Mem orial [place] Systolic (mm Hg) 2014-06-11 17:24:00 David rial Bru[place] Respitory Rate 2014-06-11 17:24:00 Memori al [place] Heart Rate 2014-06-11 17:24:00 [facility] [place] Temperature Oral (F) 2014-06-11 17:24:00 97.4 F [facility] [place] Respitory Rate 2014-06-11 12:27:00 Memori al [place] Heart Rate 2014-06-11 12:26:00 [facility] [place] Temperature Oral (F) 2014-06-11 12:26:00 98.5 F [facility] [place] Systolic (mm Hg) 2014-06-11 12:26:00 David rial G[place] Diastolic (mm Hg) 2014-06-11 12:26:00 Mem orial [place] Respitory Rate 2014-06-11 12:26:00 Memori al [place] Systolic (mm Hg) 2014-06-11 05:07:00 David rial [place] Diastolic (mm Hg) 2014-06-11 05:07:00 Mem orial [place] Temperature Oral (F) 2014-06-11 05:07:00 98.4 F [facility] [place] Heart Rate 2014-06-11 05:07:00 [facility] [place] BMI Calculated 2014-06-09 05:37:00 Memori al [place] Weight 2014-06-09 05:37:00 [facility] [place] Height 2014-06-09 05:37:00 185.42 cm [facility] [place] Height 2014-06-09 00:05:00 185.42 cm [facility] [place] Weight 2014-06-09 00:05:00 Mary Sethann BMI Calculated 2014-06-09 00:05:00 Kelly al Brule Procedures Procedure Date / Time Performed Performing Clinician Sour e Aortic aneurysm repair [facility] Encounters Start End Encounter Admission Attending Care Care Encounter Source Date/Time Date/Time Type Type Clinicians Facility Department ID 2019-09-23 2019-09-23 [facility] [id number] [facility] 15:09:00 15:09:00 [facility] Medicine Outpati ent Clinics 2019-09-09 2019-09-09 [facility] [id number] [facility] 11:30:00 11:30:00 [facility] Medicine Outpati ent Clinics 2019-08-05 2019-08-05 [facility] [id number] [facility] 14:57:00 14:57:00 [facility] Medicine Outpat[facility] ent Clinics 2019-08-02 2019-08-02 [facility] [id number] [facility] 14:24:00 14:24:00 [facility] Medicine Outpati ent Clinics 2019-07-26 2019-07-26 [facility] [id number] [address] 13:14:00 13:14:00 [facility] Medicine Outpati ent Clinics 2019-07-20 2019-07-20 [facility] [id number] [address] 09:08:00 09:08:00 [facility] Medicine Outpati ent Clinics 2019-07-14 2019-07-14 [facility] [id number] [address] 15:20:00 15:20:00 [facility] Medicine Outpati ent Clinics 2019-06-24 2019-06-24 [facility] [id number] [address] 11:00:00 11:00:[address] [facility] [address] [place] [facility] Medicine Medicine Outpati ent Clinics 2019-06-01 2019-06-01 [facility] [id number] [facility] 12[facility]18:00 12:18:00 [address] [place] [address] [place] Drive [facility] Medicine Medicine Outpati ent Clinics 2019-05-31 2019-05-31 [facility] [id number] [address] 14:36:00 14:36:00 [address] [facility] [address] [facility] Medicine Medicine Outpati ent Clinics 2019-05-27 2019-05-27 [facility] [id number] [address] 10:30:00 10:30:00 t [facility] Medicine Outpati ent Clinics 2019-04-12 2019-04-12 [facility] [id number] [facility] [address] 14:45:00 14:45:00 t [facility] Medicine Outpati ent Clinics 2019-03-22 2019-03-22 [facility] [id number] [facility] [address] 10:30:00 10:30:00 t [facility] [address] [facility] Medicine Outpati ent Clinics 2019-03-08 2019-03-08 [facility] [id number] [address] 14:45:00 14:45:00 t [facility] Medicine Outpati ent Clinics 2019-03-02 2019-03-02 [facility] [id number] [address] 10:30:00 10:30:00 t [facility] Medicine Medicine Outpati ent Clinics 2018-12-28 2018-12-28 [facility] [id number] [address] 15:15:00 15:15:00 t [facility] Medicine Outpati ent Clinics 2018-12-10 2018-12-10 [facility] [id number] [facility] [address] 14:52:00 14:52:00 t [facility] Medicine Outpati ent Clinics 2018-11-19 2018-11-19 [facility] [id number] 11:30:00 11:30:00 t [facility] Medicine Outpati ent Clinics 2018-10-22 2018-10-22 [facility] [id number] [facility] 11:45:00 11:45:00 t [facility] Medicine Outpati ent Clinics 2018-09-18 2018-09-18 [facility] [id number] 11:48:00 11:48:00 t [facility] Medicine Outpati ent Clinics 2018-09-16 2018-09-16 [facility] [id number] 15:42:00 15:42:00 t [facility] Medicine Outpati ent Clinics 2017 2017-06-10 Outpatient Katherine, [facility] [id number] 05:29:00 17:37:00 Giancarlo Crespo 2016-12-02 2016-12-31 Outpatient Blank, [facility] [id number] 13:13:00 23:59:00 Farhad Genao 2016-10-02 2016-10-31 Outpatient Blank, [facility] [id number] 10:00:00 23:59:00 Farhad Genao 2016-07-27 2016-07-30 Outpatient Dionte, [facility] [id number] 20:46:00 14:34:00 Mohtacho Keane 2016-05-07 2016-06-05 Outpatient Blank, [facility] [id number] 13:08:00 23:59:00 Farhad Genao 2016-05-30 2016-05-30 Outpatient Demarcus, [facility] [id number] 09:35:00 13:49:00 Ant Polk 2016-02-06 2016-03-06 Outpatient Blank, [facility] [id number] 13:04:00 23:59:00 Farhad Chadwick 2015-12-12 2016-01-10 Outpatient Blank, [facility] [id number] 13:29:00 23:59:00 Farhad Genao 2015-10-24 2015-11-22 Outpatient Blank, [facility] [id number] 13:00:00 23:59:00 Farhad Genao 2015-09-11 2015-10-10 Outpatient Blank, [facility] [id number] 09:27:00 23:59:00 Farhad Genao 2015-09-15 2015-09-15 Outpatient Jennifer, 31 [id number] 11:54:00 23:59:00 Farhad Genao 2015-02-17 2015-02-19 Outpatient Alla, [facility] [id number] 09:32:00 12:39:00 Angel Hoyt 2014-06-08 2014-06-11 Outpatient Mariza [facility] [id number] 18:44:00 14:30:00 , Negro 01 Results Test [...] code = MCH) 30.2 pg 27.0-31.0 [facility] RkbyrzdWEKJJYURHS2439-13-91 10:26:008.4[facility] HermannELECTROLYTES 2017-06-05 09:36:006.7[facility] TxixkzfREDGXASTKVPE0788-22-68 09:36:0017[facility] ZrmclyfYIVEKIRNCALG1484-02-10 09:36:003.5[facility] EcfuczeQBGMMBYEADDW5343-28-27 09:36:000.5[facility] LotfedtPKIFOYBTPVWE5129-01-79 09:36:0085[facility] [place] RAKJBLKUOSKR9214-47-47 09:36:005.2[facility] KecvnifCTCZUKPHAHMS3632-30-82 09:36:001.7[facility] UzyrtzdNGAOEFWOPOGJ0182-35-08 09:36:0018[facility] OPCRHHFAEDZQ1203-32-78 09:36:0036[facility] CermtluAZCGLRWEVJEE8282-20-16 09:36:00 9.1[facility] PygouqlVRNMXSQGGYXE2916-29-63 09:36:0016[facility] HermannELECTROLYTES 2017-06-05 09:36:0038[facility] IkcusndBONAOVNDQUKT9714-62-87 09:36:000.3[facility] XquhoutRCZVNQGVBRLZ5971-35-37 09:36:000.88[facility] UzwyyboUOGLZRXWFTJS2339-43-88 09:36:99536Gsimzovf JvsjcrrXFXODYIFXFER2227-37-17 09:36:003.7[facility] DKIWUJLNAJAP8823-10-03 09:36:0097[facility] AkgfsayGQFKSPCMJMTH2302-68-41 09:36:00 15[facility] ZvephfpAWNXKNBZZGRO8786-49-47 09:36:25872Ojsxspnc HermannHEMATOLOGY 2017-06-05 09:36:72929Soadjspj IefcrzkOWZMOVJUCF7069-53-75 09:36:008.6[facility] SxlijkmWFHMNATJLF8692-79-88 09:36:0030.7[facility] GgtmuuxHNYTKERYKG4515-31-80 09:36:0088.8[facility] OupithdSNONBLVNAM8780-81-98 09:36:003.46[facility] GDCHSMLSEF6906-49-20 09:36:0010.4[facility] YamgcyzCZXMLYOVZU3372-61-49 09:36:00 14.2[facility] ZdbybtyBMYSKUSNQI4729-15-38 09:36:0033.8[facility] HermannHEMATOLOGY 2017-06-05 09:36:00 Test Item Value Reference Range Interpretation Comments MCH (test code = MCH) 30.0 pg 27.0-31.0 [facility] XqfeqhnYRPGHJKZYX1144-12-74 09:36:0011.4[facility] HermannHEMATOLOGY 2017-06-05 09:36:001.5[facility] RnqjjezRSBGTYMNWK1104-72-77 09:36:000.2[facility] YvojsxgDHGMDPVCDY0988-51-85 09:36:001.3[facility] QandviyMEZJALZJIW7482-11-12 09:36:008.3[facility] ZnpmewpRSEZYWEVSX7646-24-10 09:36:002.0[facility] ZJMXFLWJHZ7324-26-37 09:36:0013.2[facility] MtkavoqRSPODDTAAZ9672-98-54 09:36:00 11.1[facility] GiqcfuiIRTIHNEOFK3383-60-90 09:36:0073.2[facility] HermannHEMATOLOGY 2017-06-05 09:36:000.1[facility] SlchvceOEZVWZPWCX7521-22-91 09:36:000.5[facility] HermannCHEM QHGHH1764-49-89 15:09:0015[facility] HermannCHEM XMGOW1137-34-92 15:09:003.7[facility] HermannCHEM YGXTZ5290-98-05 15:09:000.5[facility] HermannCHEM YJTTV3429-13-16 15:09:0010.8[facility] HermannCHEM XDPIJ3910-99-34 15:09:0083 [facility] HermannCHEM UVTQT3259-25-49 15:09:0043[facility] HermannCHEM PANEL 2017-06-04 15:09:000.3[facility] HermannCHEM DXLZW6460-16-26 15:09:005.4[facility] HermannCHEM BOECI3986-94-53 15:09:008.9[facility] HermannCHEM MIAPB0290-34-01 15:09:001.7[facility] HermannCHEM EEMCO8001-00-68 15:09:0035[facility] HermannCHEM VIKZO7558-40-63 15:09:0021[facility] HermannCHEM MAAAC6539-46-14 15:09:0019 [facility] HermannCHEM OZPXC2513-41-75 15:09:000.91[facility] HermannCHEM PANEL 2017-06-04 15:09:27621Zfpyjvbn HermannCHEM LSSSW2357-91-68 15:09:0014[facility] HermannCHEM FOOAC5717-90-67 15:09:0093[facility] HermannCHEM FRJGI1301-91-36 15:09:003.8[facility] HermannCHEM ZYKIK0685-76-23 15:09:80332Rxzirkkr Gó[place]z JLCUPXFXTJ8222-55-06 15:09:00Moderate *ABN*(06/04/17 10:09 AM)[facility] GSSPGVZKCM0072-94-08 15:09:00Normal (06/04/17 10:09 AM)[facility]annHEMATOLOGY 2017-06-04 15:09:00Moderate *ABN*(06/04/17 10:09 AM)[facility]ann[facility]MATOLOGY 2017-06-04 15:09:00Moderate *ABN*(06/04/17 10:09 AM)[facility]ann[facility]OLOG[facility] 2017-06-04 15:09:008.0[facility] BhskghgIBTMODOAWD1089-15-93 15:09:004.0[facility] QegxiscCFZJEJOHUZ2635-50-22 15:09:000.0[facility] LidnzpmXCKYUHNKDV9371-73-25 15:09:001.0[facility] JspguukNIRYBSDPHW0984-67-06 15:09:007.0[facility] AAQDOYGIJQ3900-77-64 15:09:0080.0[facility] MpgblplNGBMEBNAOZ4438-24-28 15:09:00 0.1[facility] TqzckbpXTDPQVDSVG5775-83-88 15:09:0011.8[facility]annHEMATOLOGY 2017-06-04 15:09:001.0[facility] LmcnoytNOSBWTRJYH3244-81-66 15:09:001.1[facility] DwejzjgYFWFESJJOV1936-22-47 15:09:00 Test Item Value Reference Range Interpretation Comments MCH (test code = MCH) 29.7 pg 27.0-31.0 [facility] MmezskhJVLDQDWGWC1000-99-51 15:09:0032.8[facility]annHEMATOLOGY 2017-06-04 15:09:0011.0[facility] NwvcplyMPDINQGIDY3507-98-10 15:09:003.68[facility] VjlswqkOVZIYXCZSE2960-73-71 15:09:0089.0[facility] JegambcMNNNTSOAXC1430-77-20 15:09:0014.0[facility] KdurxmvHPKWWLRMSA9659-00-25 15:09:0014.4[facility] KRFFSCOPRD2608-77-59 15:09:52264Irchvwrp FxxtuawTGTPNQNPWH7963-89-89 15:09:008.5 [facility] YehmmlsBROLZPXBCE1046-60-54 15:09:0033.4[facility]annHEMATOLOGY 2017-06-03 20:40:000.4[facility] HdwzdqyWZOSKJTCWJ2155-83-31 20:40:00Normal (06/03/17 3:40 PM)[facility] AhbtlfiAEUGXYLREW9047-73-00 20:40:00Normal (06/03/17 3:40 PM)[facility] JqaxelwQCCSQKXUIS4977-91-79 20:40:000.1[facility] NDTCSCOOYN7225-55-20 09:41:002.0[facility] ItiqiqoUIQJWYKOYE8433-04-63 09:41:000.0 [facility] AkoqqyaVKQHTJQQQT9741-80-92 09:41:0010.0[facility]annHEMATOLOGY 2017-05-31 09:41:00Normal (05/31/17 4:41 AM)[facility] MpgecvuIJMRPIIIAE8229-94-23 09:41:00Normal (05/31/17 4:41 AM)[facility] MjithndLRNHYFDTUF3354-32-22 09:41:00 Moderate *ABN*(05/31/17 4:41 AM)[facility] GhkpnqoFCDIEWNCSL7076-70-37 09:41:00 Test Item Value Reference Range Interpretation Comments Tot Cell Ct (test code = Tot Cell Ct) 100 1 [facility]annCHEM KUZWT4505-21-00 09:27:0038[facility]annCHEM PANEL 2017-05-29 09:27:000.4[facility]annCHEM JPKHA3369-20-39 09:27:003.5[facility]annCHEM QYVVM9102-19-84 09:27:0016[facility]annCHEM XCMYU6571-18-08 09:27:005.0[facility]annCHEM MCWPK7865-50-00 09:27:001.5[facility]annCHEM XDRUX8593-48-80 09:27:0018[facility]annCHEM BBRZN8350-39-63 09:27:000.4 [facility]CHE[facility] XPXBZ1759-71-43 09:27:0039[facility]annHEMATOLOGY 2017-05-28 07:37:00Normal (05/28/17 2:37 AM)[facility] 2017-05-25 02:42:00Negative (05/24/17 9:42 PM)[facility] 2017-05-25 02:42:00Performed (05/24/17 9:42 PM)[facility] 2017-05-25 02:42:001.0[facility] AJGVN2387-90-03 02:42:00Negative (05/24/17 9:42 PM)[facility] JEOXC3008-51-38 02:42:00Small *ABN*(05/24/17 9:42 PM)[facility] YZRDL7966-28-76 02:42:00Moderate *ABN*(05/24/17 9:42 PM)[facility] OLEXS2495-14-95 02:42:00 Negative (05/24/17 9:42 PM)[facility] EGUXN5022-79-31 02:42:00 Trace *ABN*(05/24/17 9:42 PM)[facility] IOYLO4377-14-89 02:42:00 >=1.030 *ABN*(05/24/17 9:42 PM)[facility] DYKRF3312-49-91 02:42:00 Test Item Value Reference Range Interpretation Comments UA pH (test code = UA pH) 5.0 1 5.0-8.0 [facility] POEUN4600-89-50 02:42:00Yellow *NA*(05/24/17 9:42 PM) [facility] FJKIV6696-15-05 02:42:00Cloudy *ABN*(05/24/17 9:42 PM) [facility]annCHE[facility] KCSDJ5016-91-06 15:55:0014.55[facility]annCHEM PANEL 2017-05-24 15:55:001.2[facility] JVLFC4241-42-35 12:31:00Negative *NA*(05/23/17 7:31 AM)[facility] KPGRB8439-83-22 12:31:00Negative (05/23/17 7:31 AM)[facility] OUZTI1966-53-10 12:31:00Negative (05/23/17 7:31 AM)[facility] KRYRY0199-51-54 12:31:002.0[facility] MAMND1174-25-71 12:31:00Negative (05/23/17 7:31 AM)[facility] QSTRM9569-41-28 12:31:001[facility] STOOL 2017 12:31:002[facility] VKYXU3980-77-26 12:31:001.020 [facility] ATISX5755-53-18 12:31:005.0[facility] QIQFV5368-32-54 12:31:00Yellow *NA*(05/23/17 7:31 AM)[facility] BKBHP6314-27-12 12:31:00Clear (05/23/17 7:31 AM)[facility]annCARDIAC ENZYMES 2017 11:12:0076[facility]annCHEM RGXAX5415-30-71 11:12:001.6[facility]annCHEM IJJHS1859-56-98 11:12:52651Rwakmsgp HermannSPECIAL CHEMISTRY 2017 11:12:006.5[facility] GTRBK7749-41-86 11:04:00None Seen (07/28/16 5:04 AM)[facility] SZKQM5292-16-95 11:04:00None Seen (07/28/16 5:04 AM)[facility] FZCYS8721-09-13 11:04:00 Negative (07/28/16 5:04 AM)[facility] IZGZD6505-22-96 11:04:00 Negative (07/28/16 5:04 AM)[facility] BNVTT4701-00-59 11:04:00 Clear (07/28/16 5:04 AM)[facility] LETHJ5047-45-69 11:04:00 Negative *NA*(07/28/16 5:04 AM)[facility] MXGNK8402-16-28 11:04:00Negative *NA*(07/28/16 5:04 AM)[facility] CIZEO4688-55-79 11:04:00 Test Item Value Reference Range Interpretation Comments UA Spec Grav (test code = UA Spec 1.010 1 Grav) [facility] PRLZO5456-96-83 11:04:000.2[facility] ANLYK2774-94-52 11:04:00Negative (07/28/16 5:04 AM)[facility] RIWNL6367-57-99 11:04:00 Test Item Value Reference Range Interpretation Comments UA pH (test code = UA pH) 7.0 1 5.0-8.0 [facility] FLETB8109-75-01 11:04:00Negative (07/28/16 5:04 AM) [facility] PkugaatVOHVCJ3496-94-98 11:00:502.35[facility] SqpkxtiXGXYLL6172-45-07 11:00:5027[facility] ReduvnaDCAPAE5567-56-51 11:00:5046[facility] HermannLIPIDS 2016-07-28 11:00:90817Mtsfurlq NgesbksZCIXPC5635-03-73 11:00:5054[facility] CuqdvamNSGLUB0558-50-80 11:00:78833Kvizjgok HermannSPECIAL QJBEWVLII9950-21-97 11:00:506.1[facility]annCARDIAC MXKNDBM8728-79-94 04:12:00<2.0[facility]annCARDIAC COXMTTQ7695-86-44 04:12:00<0.02[facility]annCARDIAC ENZYMES 2016-07-28 04:12:00<1.0[facility]AC VLJQOZV3400-58-18 04:12:0049 [facility]AC UAACGZZ1555-92-33 04:12:0032[facility]annCHEM PANEL 2016-07-28 04:12:003.3[facility]annCHEM CSJJG2476-82-78 04:12:001.0[facility]annCHEM UQBWC4598-58-04 04:12:0053[facility]annCHEM SKNFQ6343-81-32 04:12:0011[facility]annCHEM JWXFB3210-94-64 04:12:0038[facility]annCHEM BPJAO4484-38-46 04:12:000.2[facility]annCHEM ZJOBF0052-26-74 04:12:0010.0 [facility]annCHE[facility] LJJNI6986-70-15 04:12:0021[facility]annCHEM PANEL 2016-07-28 04:12:0016[facility]annCHEM OLRED5359-92-78 04:12:003.3[facility]annCHEM LYMOW4791-54-57 04:12:008.3[facility]annCHEM EOLQC4266-30-54 04:12:0034[facility]annCHEM ZECWP7660-74-79 04:12:006.6[facility]annCHEM HKTAJ4724-64-03 04:12:97736Gqnruyvg HermannCHEM ZBFDS4082-53-10 04:12:004.0 [facility]annCHE[facility] FMWCF4904-32-08 04:12:0099[facility]annCHEM PANEL 2016-07-28 04:12:001.34[facility]annCHEM SXGTC9086-52-73 04:12:0028[facility]annCHEM ONNHV3074-82-86 04:12:25795Zogakbdj KdtgrfjFTJAHXPICC7803-05-96 04:12:000.1[facility] SqmtolgHMVCCMVLSX7593-45-04 04:12:005.2[facility] LEHDIXFHYF9921-78-95 04:12:0022.2[facility] OzznavkRBUDCRYRSB9594-09-17 04:12:00 13.7[facility] ZxbtsdxZQQFELDAHF0865-02-59 04:12:000.2[facility] HermannHEMATOLOGY 2016-07-28 04:12:001.9[facility] UxrxcfwAQRUXZZSVE4618-46-02 04:12:001.2[facility] DreuutbGEKLSUFQGM1536-04-98 04:12:0060.8[facility] EgvuvjbJWYZJGEBGX8918-28-70 04:12:002.7[facility] MbktstdVVTHREJUIR0698-64-06 04:12:000.6[facility] DKSIPLRRCL5516-82-89 04:12:00 Test Item Value Reference Range Interpretation Comments PTT (test code = PTT) 26.5 s 22.9-35.8 [facility] HwrjzoaMKSQMHRUNM7630-83-57 04:12:00 Test Item Value Reference Range Interpretation Comments PT (test code = PT) 13.6 s 12.0-14.7 [facility] YcxlkseNRWRKOBHBN5793-23-75 04:12:001.02[facility] HermannHEMATOLOGY 2016-07-28 04:12:05049Tfyqucuo SlttsiiMMDOGEGGNF8081-93-90 04:12:0010.9[facility] OyomxyiRPRXJHZEQO1698-76-97 04:12:00 Test Item Value Reference Range Interpretation Comments MCH (test code = MCH) 29.9 pg 27.0-31.0 [facility] PtsmslzCJIXWXAHCL8715-12-64 04:12:0033.2[facility]annHEMATOLOGY 2016-07-28 04:12:0090.2[facility] AbwqtgiJQKGJYJHDC5637-99-10 04:12:0013.3[facility] LoadztpCSILQAKGRB1815-93-80 04:12:0013.4[facility] VbzuefoRKEFKQJGWX1211-93-39 04:12:0040.3[facility] UdibbcqBJYDLUNKWN9522-38-41 04:12:008.5[facility] MRKQBKYOKK8815-46-49 04:12:004.47[facility] PEXGX2963-57-31 04:12:00None Seen (07/27/16 10:12 PM)[facility] KLEIM7917-45-45 04:12:00None Seen (07/27/16 10:12 PM)[facility] XWBQN2524-91-23 04:12:00None Seen (07/27/16 10:12 PM)[facility] EIDIN0950-99-54 04:12:00Negative (07/27/16 10:12 PM)[facility] UQDJC0004-71-34 04:12:00Negative (07/27/16 10:12 PM)[facility] AQLLR8590-49-16 04:12:00Negative *NA*(07/27/16 10:12 PM)[facility] STOOL 2016-07-28 04:12:00Negative (07/27/16 10:12 PM)[facility] STOOL 2016-07-28 04:12:000.2[facility] FDXKP1563-92-67 04:12:00 Test Item Value Reference Range Interpretation Comments UA Spec Grav (test code = UA Spec 1.010 1 Grav) [facility] IDIPT2314-10-08 04:12:00Yellow *NA*(07/27/16 10:12 PM) [facility] ZQICR7022-79-17 04:12:00Clear (07/27/16 10:12 PM) [facility] RXPJL0764-50-62 04:12:00 Test Item Value Reference Range Interpretation Comments UA pH (test code = UA pH) 7.5 1 5.0-8.0 [facility] CGWXG2826-91-89 16:03:00Negative (05/30/16 11:03 AM) [facility] DFRLQ0961-98-92 16:03:00Clear (05/30/16 11:03 AM) [facility] KZTXN1040-98-87 16:03:00Negative (05/30/16 11:03 AM) [facility] TUIDM8108-13-30 16:03:000.2[facility] KNXAZ8035-60-13 16:03:00 Test Item Value Reference Range Interpretation Comments UA Spec Grav (test code = UA Spec 1.015 1 Grav) [facility] IFUFH7691-79-76 16:03:00 Test Item Value Reference Range Interpretation Comments UA pH (test code = UA pH) 6.0 1 5.0-8.0 [facility] UHWJJ8749-27-86 16:03:00Negative (05/30/16 11:03 AM) [facility] UKYTG8241-23-07 16:03:00Yellow *NA*(05/30/16 11:03 AM) [facility] AIOLZ1351-82-28 16:03:00Negative *NA*(05/30/16 11:03 AM)[facility] UDUDM8009-69-31 16:03:00Negative (05/30/16 11:03 AM) [facility] HNBFV5645-85-11 16:03:00Moderate *ABN*(05/30/16 11:03 AM)[facility] BKTOR5403-61-27 16:03:00Negative *NA*(05/30/16 11:03 AM)[facility] HZNDO5667-76-79 16:03:00Performed (05/30/16 11:03 AM)[facility] MRSBO3184-94-86 16:03:00None Seen (05/30/16 11:03 AM)[facility] VTKEG3038-57-13 16:03:00None Seen (05/30/16 11:03 AM)[facility] FBMJV8457-79-24 16:03:00None Seen (05/30/16 11:03 AM)[facility]annCARDIAC EBLNWJM3097-01-16 15:14:00<0.02[facility] CARDIAC MBFDEJI9869-99-27 15:14:0032[facility]annCARDIAC TAXINGM1116-66-07 15:14:0064[facility]annCHEM XLYTO3797-23-47 15:14:60564Qgkgdoes [facility] KZIPWOJKZBTL1691-41-83 15:14:009.2[facility] WojuremZWPJOKPPPLLR8756-45-26 15:14:0020[facility] YuiwuttPOUXPAUWZLCO2461-29-64 15:14:003.8[facility] WPZUJHOPYHAQ4260-72-15 15:14:000.9[facility] QqtqbxbAOJNZATJUDVX4473-49-84 15:14:0049[facility] XifwwyzMEQRYBYVYTUZ5448-46-67 15:14:003.6[facility] AIODNHBGAHPJ0192-47-96 15:14:0020[facility] LhvqcabRSWPJRXUFYJT2840-85-41 15:14:00 37[facility] CzufqenJMRLTLPEKHUL1142-52-00 15:14:0014[facility] HermannELECTROLYTES 2016-05-30 15:14:000.3[facility] UbozglaZRVQIEKOIUUT4099-39-14 15:14:01056Glnoskxe DnzgxmlFMZMBWQGVIYV6148-87-91 15:14:001.42[facility] HermannELECTROLYTES 2016-05-30 15:14:004.2[facility] EjefjdlJNQBMHNKMKMN0557-27-56 15:14:60843Xcgjcqca VbygordLKKYKNSWKWZU7049-50-66 15:14:008.9[facility] TvotljoZAZNKLBOXZNK5721-60-29 15:14:0035[facility] OuxcldtCECXLMBKCAKY3185-64-73 15:14:007.4[facility] QPFHVQCGDTPE6351-09-45 15:14:0028[facility] OipdzvsWKXNICQRGANT9926-73-40 15:14:00 141[facility] PbhgymxANBDECQNXY1970-92-79 15:14:000.1[facility]annHEMATOLOGY 2016-05-30 15:14:001.3[facility] XxsanijONPBPSHFRB9254-71-37 15:14:001.1[facility] HgjnhuyLYGOOPCAIE8284-51-23 15:14:000.1[facility] KznzvayNHSICGPGMP0538-89-84 15:14:004.4[facility] AlyzarhUUIHYAYDUF8012-69-97 15:14:000.9[facility] GKROOYRJTX4542-37-18 15:14:0015.3[facility] RirjweaZJSRXXWSJJ8472-39-97 15:14:00 2.1[facility] VjaikmrWAKGUHHETG8033-66-52 15:14:0018.2[facility] HermannHEMATOLOGY 2016-05-30 15:14:0063.5[facility] IenjndnUEKLYACZWO7773-66-04 15:14:0039.9[facility] BybutwiXPLYLTESMA4932-76-01 15:14:00 Test Item Value Reference Range Interpretation Comments MCH (test code = MCH) 30.6 pg 27.0-31.0 [facility] RcawcegXYHEIHDLTJ5456-63-51 15:14:0091.2[facility]annHEMATOLOGY 2016-05-30 15:14:0013.4[facility] SvoojasYPSCMSPWEE7143-94-53 15:14:004.37[facility] SciujwpJWFFIDFTRV1083-68-24 15:14:006.9[facility] CszjhitENFQRSMVTK2848-09-38 15:14:99106Avrtjswn MxosdisPJFMHVHQOS1601-99-02 15:14:0010.3[facility] QVZGVYYCWD1256-56-36 15:14:0033.6[facility] WnbvpveCQXRXWVOUC4868-79-23 15:14:00 13.8[facility] HermannCHEM OMHMA0785-62-30 10:00:001.6[facility] HermannELECTROLYTES 2015-02-19 10:00:008.5[facility] JdvlhloVVEUQTSKNOLJ0121-10-64 10:00:0086[facility] ObfxtyhIQWHQGKIPUTS2905-09-31 10:00:98705Hkrnyede WtumpnwPUMMTBDZABFQ9154-85-84 10:00:003.5[facility] JbyixrwDFDYYSOJHPWH0733-27-25 10:00:008.4[facility] QXKLSHKDRSQC4416-71-51 10:00:0030[facility] WiwibbiKOJCQRCAEORL8890-65-53 10:00:00 102[facility] MykteocZXROJLNSIEIR6888-22-37 10:00:000.9[facility] OIHNJXDCMEKV8102-17-75 10:00:69428Jtgnscoe IofdtwgZACTVDKPGPRG6316-14-08 10:00:009[facility] VxwezbuBSGMOFFUMZ3501-51-43 10:00:000.1[facility] JLDMMCHAPS2882-73-80 10:00:000.1[facility] CwvgxeeRSTWQSPMPU0733-18-77 10:00:000.9 [facility] ProtjdyGGTVJQQMKZ0878-50-60 10:00:002.0[facility]annHEMATOLOGY 2015-02-19 10:00:0059.5[facility] XmjcjffCBGTYRSTZY4850-89-69 10:00:0025.6[facility] LcfkgvcHGFXPATIVM5100-29-22 10:00:001.6[facility] PgpxqbzKPNHYSZTZK8643-36-46 10:00:001.2[facility] QtscwnaBMCPKXZNLF2602-29-27 10:00:004.6[facility] FXPUBQZMQL5453-14-23 10:00:0012.1[facility] WdsogkrGACIISWPIX8553-79-05 10:00:00 Test Item Value Reference Range Interpretation Comments MCH (test code = MCH) 30.5 pg 27.0-31.0 [facility] IzchvrfEMBEIYBQLK1712-00-95 10:00:0034.0[facility]annHEMATOLOGY 2015-02-19 10:00:0013.3[facility] ThgddiiKLECFTPCEU7931-37-10 10:00:0031.0[facility] NncfhhnGSVOFZIMOK2180-33-78 10:00:0089.6[facility] KndibylENGMUASAHE4713-72-02 10:00:009.4[facility] YzxmguaNPETNXDWJV0706-57-08 10:00:85604Dldetbro [facility] SVOGSMGLOK3564-74-27 10:00:0010.5[facility] BxdicijOUOQZLSGRK7129-55-25 10:00:00 7.7[facility] BpogmvcMLJSIZCQDJ2563-17-59 10:00:003.46[facility]annCHEM PANEL 2015-02-18 14:44:001.4[facility] KtekstpJFCSLAJGRAGK8286-53-32 14:44:84829Mdpnnmdp HermannCHEM XOCDH0929-37-81 09:05:0011[facility]annCHEM IKJSI1064-78-21 09:05:001.0[facility]annCHEM FVENX5759-89-31 09:05:003.3[facility]annCHEM HPSOI5003-64-45 09:05:009.5[facility]annCHEM YSMBI9160-50-64 09:05:0076 [facility]annCHEM KCEKV6143-64-74 09:05:72348Arneippz HermannCHEM PANEL 2015-02-18 09:05:000.7[facility]annCHEM UWSRZ8016-05-14 09:05:0031[facility]annCHEM AQTMQ4269-15-62 09:05:0025[facility]annCHEM GHRQG4836-06-39 09:05:0032[facility]annCHEM TYUPN8188-36-94 09:05:006.5[facility]annCHEM RYOTQ4848-12-58 09:05:003.5[facility]annCHEM HROTT9873-58-73 09:05:003.2 [facility]annCHEM DOFNL7519-44-48 09:05:0028[facility]annCHEM PANEL 2015-02-18 09:05:0095[facility]annCHEM ZZDTA2775-01-17 09:05:008.2[facility]annCHEM UXOGG8273-44-04 09:05:96676Gwsyyxmg HermannCHEM QKCZA4168-99-33 09:05:001.0[facility] HermannCHEM OEEEV6491-76-29 09:05:0011[facility] XYAKDEULCETR0609-45-07 09:05:0010.5[facility] UaxcxnbUWZDDBARCAVG0167-41-59 09:05:008.4[facility] DmzpanvJQNQCMXQUSPM5018-46-02 09:05:0027[facility] HGDCQPBDXTPA9086-14-77 09:05:0096[facility] YfxoyawIJLZZGMWUUSS4390-17-01 09:05:00 76[facility] OoipnkhXKZBJOQZAMDP1870-52-67 09:05:003.5[facility] HermannELECTROLYTES 2015-02-18 09:05:46785Gxjpfpvz ZhbqsqpLHIDVWAVIAFO0609-39-20 09:05:001.0[facility] CkkaomaUGQMCTRZGJXA0987-89-81 09:05:0011[facility] XmkpqtgACWVEYHYFRHY0148-22-84 09:05:97322Dtsyzpnq FaqkrygCUDHBTJXKW7765-40-34 09:05:0012.7[facility] NPOFCGCCIE3441-07-00 09:05:0074.1[facility] RduqpzbTLVTPYKNMV7784-47-72 09:05:00 12.6[facility] KwqdbbyMPGAWMGCED9760-60-98 09:05:001.6[facility] HermannHEMATOLOGY 2015-02-18 09:05:001.6[facility] PgftqcgIRQFRHPPGK2022-96-67 09:05:000.2[facility] QzcmrbjLGMHMEREED0076-09-95 09:05:000.4[facility] EgoxzpfOGTWIWOGCA9502-27-24 09:05:009.6[facility] UwzvjtcPEANOPEZFV5164-18-10 09:05:000.1[facility] JAAMLXKNQR0109-60-87 09:05:003.97[facility] TmycnbxUFGSQCPPXS8824-56-60 09:05:00 13.0[facility] UfhncelZWHBJZEXSW7877-40-58 09:05:009.7[facility] HermannHEMATOLOGY 2015-02-18 09:05:0013.1[facility] TiaedtbUVYHPQLWAN2014-12-04 09:05:38642Iwhmnhfn CdycuguVQFWMVEYRB6565-53-14 09:05:0034.8[facility] JesrfgtEHVSDXFOJI7367-63-60 09:05:0087.8[facility] KpgzjhmFYYUWUFGMR6100-67-15 09:05:0011.9[facility] GUNABBXOXO7692-50-31 09:05:00 Test Item Value Reference Range Interpretation Comments MCH (test code = MCH) 30.1 pg 27.0-31.0 [facility] NsqihcfOSZZCJTDZO3084-35-16 09:05:0034.3[facility] HermannCHEM PANEL 2015-02-18 05:11:001.1[facility] VqxgbuyNPONGY4626-42-72 05:11:0014[facility] XvymmwmGFEDFT4495-11-18 05:11:0025[facility] AfzcslbSYWHNA4049-93-87 05:11:0091 [facility] YaqjzsvDPMSGS0788-60-78 05:11:001.75[facility] XkhwpljYADMLR6144-25-64 05:11:0052[facility] WbcagazFVKGJL0413-11-48 05:11:0071[facility] HermannTHYROID FLJMC6717-78-22 05:11:001.790[facility] HermannBACTERIAL - SIGUWTFA5425-02-20 00:29:00Negative 16(02/17/15 7:29 PM)[facility]annCHEM VKTAV4040-89-59 00:28:001.0[facility] SaaehcqDGTHICRYIC7875-57-92 00:28:41783Uyoqhtxk [place] XBALZJXOQH4180-46-22 00:28:00 Test Item Value Reference Range Interpretation Comments PTT (test code = PTT) 25.3 s 22.9-35.8 [facility]DR[facility] EPZJDN9330-71-67 21:40:00See Note 8(02/17/15 4:40 PM) [facility] YRXRKW1046-03-85 21:40:00Negative *NA*(02/17/15 4:40 PM) [facility] OLLOJS7935-64-70 21:40:00Negative *NA*(02/17/15 4:40 PM) [facility] PCHSBM0673-38-10 21:40:00Negative *NA*(02/17/15 4:40 PM) [facility]DR[facility] ZVEQFK4546-21-53 21:40:00Positive *ABN*(02/17/15 4:40 PM) [facility]DR[facility] CTRTUN6597-62-72 21:40:00Negative *NA*(02/17/15 4:40 PM) [facility] SYDAIG2468-04-17 21:40:00Negative *NA*(02/17/15 4:40 PM) [facility] ZGJDTV2051-26-17 21:40:00Negative *NA*(02/17/15 4:40 PM) [facility] RZQGF0120-20-05 21:40:00Negative (02/17/15 4:40 PM) [facility] AUJXZ2831-92-18 21:40:00Negative *NA*(02/17/15 4:40 PM) [facility] XJIAY4802-68-72 21:40:00Yellow *NA*(02/17/15 4:40 PM) [facility] PTKUB3487-69-48 21:40:00 Test Item Value Reference Range Interpretation Comments UA Spec Grav (test code = UA Spec 1.010 1 Grav) [facility] WXKVW8604-96-20 21:40:00Clear (02/17/15 4:40 PM) [facility] OOBSN4275-12-71 21:40:00 Test Item Value Reference Range Interpretation Comments UA pH (test code = UA pH) 6.0 1 5.0-8.0 [facility] DGWQN5076-25-93 21:40:00Negative (02/17/15 4:40 PM) [facility] CFJHA8295-53-03 21:40:00Negative (02/17/15 4:40 PM) [facility] ZSRNT1340-11-83 21:40:000.2[facility] HermannCHEM PANEL 2015-02-17 21:12:90384Hgxjqnuf HermannURINE YUMT7502-86-38 20:00:0053[facility]annUR[facility] GVLB6528-33-21 20:00:36010Nwuavute HermannURINE IASL3593-84-28 20:00:0036.2[facility]annUR[facility] EVRN4876-20-78 20:00:0072[facility] CARDIAC LFLQGFD5229-15-61 16:09:007.2[facility]annCARDIAC SLHDXLM3970-27-07 16:09:0092[facility]annCARDIAC BPUUEVX9637-87-25 16:09:87848Wstjckqz Gómez CARDIAC KUCFQLU6518-57-24 16:09:001.5[facility]annCARD[facility]AC WOJXCDI5516-76-61 16:09:000.11[facility]annCHEM TSPFA9281-20-30 16:09:000.7[facility]annCHEM MGGSQ0232-99-67 16:09:0028[facility]annCHEM AFZTZ1859-02-66 16:09:003.5 [facility]annCHEM CKRCJ2564-43-12 16:09:007.3[facility]annCHEM PANEL 2015-02-17 16:09:003.8[facility]annCHEM ETTGV7554-94-34 16:09:0038[facility]annCHEM LFAPL9144-39-19 16:09:0024[facility]annCHEM LWOVT8368-77-86 16:09:001.1[facility]annCHEM QGRLU8937-45-77 16:09:0011[facility] OEXLKRHFPY0459-34-51 15:08:000.1[facility] ZczqguoPHRUWHEHBL1733-23-87 15:08:00 10.7[facility] DnsrjvoRADGIOHPOT2635-04-15 15:08:001.2[facility] HermannHEMATOLOGY 2015-02-17 15:08:001.5[facility] MsolgdgGGOKHYKNRY8637-59-54 15:08:0079.6[facility] CxiufvcSZXVHXNLLF1798-70-96 15:08:008.8[facility] JzwpvtoQVYHQNDFKU8181-71-72 15:08:0010.8[facility] ZifgbrpDLCZNXOTOG2650-31-70 15:08:000.5[facility] BDZIBEIBYT4875-64-11 15:08:000.3[facility] DhigpnmFUCHQIABZX1944 15:08:00 Test Item Value Reference Range Interpretation Comments PT (test code = PT) 13.3 s 12.0-14.7 [facility] MsjcynnGIKEOCXUOW5017-32-05 15:08:00 Test Item Value Reference Range Interpretation Comments PTT (test code = PTT) 26.3 s 22.9-35.8 [facility] LdwxuhhLZFIDDYNMD9799-19-38 15:08:001.01[facility]annHEMATOLOGY 2015-02-17 15:08:0033.5[facility] ClecljkBFWLIHAWWC8072-00-12 15:08:0013.0[facility] FmdamqhTFMLZXUCVB6214-35-48 15:08:0039.1[facility] YifwjosSGQVOSBPRD1594-24-19 15:08:0013.5[facility] UxxldkvDPCMMOYNAI0803-12-88 15:08:0090.1[facility] POIQEIQKYP8887-23-62 15:08:00 Test Item Value Reference Range Interpretation Comments MCH (test code = MCH) 30.2 pg 27.0-31.0 [facility] QmidydwKQDCLBPUFF6655-44-94 15:08:009.5[facility]annHEMATOLOGY 2015-02-17 15:08:004.34[facility] JxvtfhcZRZMBDCWUX8342-96-26 15:08:0013.1[facility] HkggmqyTXRGIVNUOK7427-77-81 15:08:00<0.003[facility] HermannTOXICOLOGY 2015-02-17 15:08:00<3[facility]annURINE AND KBIQV8385-30-93 15:08:00 Negative *NA*(02/17/15 10:08 AM)[facility] AND PTTFJ1702-47-90 15:08:00Negative *NA*(02/17/15 10:08 AM)[facility] AND RJOTO9259-65-15 15:08:000.2[facility] AND KTLAI0779-54-31 15:08:00Negative (02/17/15 10:08 AM)[facility] FKDFZ2639-51-22 15:08:00Negative (02/17/15 10:08 AM)[facility] AND KMGPK2442-85-26 15:08:00Negative (02/17/15 10:08 AM)[facility] AND ASEZD7227-87-68 15:08:00<=1.005 *NA*(02/17/15 10:08 AM)[facility] AND RYJGG3708-22-65 15:08:00Negative (02/17/15 10:08 AM)[facility] AND GMOJR1309-94-04 15:08:00 Test Item Value Reference Range Interpretation Comments UA pH (test code = UA pH) 7.0 1 5.0-8.0 [facility] AND CWWTA7513-56-81 15:08:00Yellow *NA*(02/17/15 10:08 AM) [facility] ZMEHR7764-66-00 15:08:00Clear (02/17/15 10:08 AM) [facility] TCXSB6367-44-33 15:08:00None Seen (02/17/15 10:08 AM) [facility] VUWIR5034-83-94 15:08:00None Seen (02/17/15 10:08 AM) [facility] NUHOP8052-47-91 15:08:00None Seen (02/17/15 10:08 AM) [facility] NQKNV3277-84-62 15:08:00None Seen (02/17/15 10:08 AM) [facility]annCHEM DJUTU9702-22-67 15:55:0068[facility]annCHEM PANEL 2014-06-10 15:55:003.3[facility]annCHEM PGZFB9244-46-91 15:55:001.0[facility]annCHEM XCCOR5084-10-08 15:55:0043[facility]annCHEM SOEMH1294-15-79 15:55:000.3[facility]annCHEM KYQAT5612-95-61 15:55:0017[facility]annCHEM ZPSJJ7201-11-73 15:55:0010.8[facility]annCHEM VFTAV5080-62-53 15:55:009.3 [facility]annCHEM AYUMT0700-19-52 15:55:006.7[facility]annCHEM PANEL 2014-06-10 15:55:003.4[facility]annCHEM DOLUO4697-94-42 15:55:0022[facility]annCHEM AQBDG9008-81-01 15:55:0015[facility]annCHEM LCHZB4017-64-23 15:55:0036[facility]annCHEM WDRFA4311-73-71 15:55:07942Fdlxokxh HermannCHEM DVIIQ7791-13-98 15:55:0019[facility]annCHEM CVVXS3071-98-49 15:55:38175 [facility]annCHEM GBNDE5041-20-57 15:55:001.1[facility]annCHEM PANEL 2014-06-10 15:55:004.8[facility]annCHEM EXWBV2876-19-54 15:55:0095[facility] AlotjatGZOFINDIFB3625-76-95 15:55:00 Test Item Value Reference Range Interpretation Comments MCH (test code = MCH) 31.6 pg 27.0-31.0 [facility] UobcriyXWRRCHDDFR0554-53-98 15:55:0034.5[facility] HermannHEMATOLOGY 2014-06-10 15:55:0091.6[facility] LjtncqiCKZPDRPCXP8062-83-63 15:55:0041.8[facility] PrqnbicFYKRAQBZOT8942-88-77 15:55:33202Hsdczxjh PbmwboaYSCLDIIDNA4796-91-97 15:55:0010.2[facility] JcsfekbQHMRZCNJUT0773-85-72 15:55:0014.1[facility] MVDOUOOYWF3171-97-22 15:55:004.56[facility] HnywjwpBHRAZQIQXP1020-61-65 15:55:00 14.4[facility] PqywzrdEETEDFRVTO2662-05-88 15:55:0014.8[facility] HermannCARDIAC FAUAVNH7433-27-31 14:28:0067[facility]annCARDIAC FXNWLZC8611-63-50 14:28:00 <0.02[facility]annCARDIAC MORSLTC7385-95-63 09:10:0013[facility] CARDIAC JHEMIIA9441-20-76 09:10:0065[facility]annCARDIAC UERDAQZ2046-57-44 09:10:00<0.02[facility]annCHEM PCYYU2487-66-68 09:10:0076[facility] CHEM JQHNG2670-11-77 09:10:001.0[facility] AykvcwhRAJTGYGICP9548-82-06 09:10:00 Test Item Value Reference Range Interpretation Comments PTT (test code = PTT) 29.8 s 22.9-35.8 [facility] FxzhtgsRPGWSWWSFN7966-67-98 09:10:71650Jhheyhpe HermannURINE AND STOOL 2014-06-09 02:15:29Yellow *NA*(06/08/14 9:15 PM)[facility] AND STOOL 2014-06-09 02:15:29Negative (06/08/14 9:15 PM)[facility] AND STOOL 2014-06-09 02:15:29Negative (06/08/14 9:15 PM)[facility] AND STOOL 2014-06-09 02:15:290.2[facility]annUR[facility] AND FCLTK2211-37-83 02:15:29Negative (06/08/14 9:15 PM)[facility] AND JXAWU4196-00-36 02:15:29Trace *ABN*(10/8/14 9:15 PM)[facility] AND YJGZI9440-55-22 02:15:29 Test Item Value Reference Range Interpretation Comments UA pH (test code = UA pH) 6.0 1 5.0-8.0 [facility] AND UBQLH7152-49-02 02:15:29>=1.030 *ABN*(06/08/14 9:15 PM)[facility] AND LHYKD6442-50-01 02:15:29Negative *NA*(06/08/14 9:15 PM)[facility] AND ODJZJ9291-76-55 02:15:29Negative *NA*(06/08/14 9:15 PM)[facility] AND MJGPZ7023-36-88 02:15:29Clear (06/08/14 9:15 PM) [facility] CZIJS6051-86-08 02:15:29Negative (06/08/14 9:15 PM) [facility] [id number] 01:45:141.3[facility] [id number] 01:45:1493[facility] [id number] 01:45:14 <0.02[facility] [id number] 01:45:1418[facility] CARDIAC [id number] 01:45:141.4[facility]annCHEM [id number] 01:45:1468[facility] EykpzaoRDPKMMXPZG6540-55-09 01:25:190.90[facility] XFRSKAHPOR7795-94-05 01:25:19 Test Item Value Reference Range Interpretation Comments PTT (test code = PTT) 28.6 s 22.9-35.8 [facility] PcpgftaIOGXMXPKJI6194-54-26 01:25:19 Test Item Value Reference Range Interpretation Comments PT (test code = PT) 12.1 s 12.0-14.7 [facility] [id number] 01:25:0029[facility]annCHEM PANEL 2014-06-09 01:25:000.9[facility]annCHE[facility] [id number] 01:25:0053[facility]annCHE[facility] [id number] 01:25:0024[facility]annCHEM QUWOI2229-33-64 01:25:000.5[facility]annCHE[facility] ETUCD6109-26-85 01:25:0018[facility]annCHE[facility] RMUYP3299-49-38 01:25:004.0[facility]annCHE[facility] KDUYS8031-65-68 01:25:007.5 [facility] [id number] 01:25:003.5[facility]annCHE[facility] PANEL 2014-06-09 01:25:004.5[facility]annCHE[facility] [id number] 01:25:0041[facility]annCHE[facility] [id number] 01:25:0096[facility]annCHE[facility] [id number] 01:25:009.2[facility]annCHEM [id number] 01:25:006.5[facility]annCHE[facility] [id number] 01:25:80600Rqzxzxnl HermannCHEM BPIHA9786-21-13 01:25:001.1 [facility] [id number] 01:25:0020[facility]annCHEM PANEL 2014-06-09 01:25:35846Lwzhllza KxkfhvcJFISYJGWYN2506-64-43 01:25:0090.8[facility] BienpvrIQJJKXWPSB3136-08-07 01:25:0045.4[facility] CnchipcHLFDLBPNPT4084-00-61 01:25:00 Test Item Value Reference Range Interpretation Comments MCH (test code = MCH) 31.6 pg 27.0-31.0 [facility] [id number] 01:25:005.00[facility]annHEMATOLOGY 2014-06-09 01:25:0015.8[facility] MlgiwooSSXHFAKCXV6873-14-36 01:25:008.5[facility] WvlkixqWJVSAHXVDX9416-84-11 01:25:0034.8[facility] XguovfvYUOTAQVGPJ0666-83-41 01:25:11570Ftkzqfwr HtljlmlURJDQRBGVB4736-30-94 01:25:0014.1[facility] GVNBDIQYEL4164-65-99 01:25:009.6[facility] MtxemoeCDHYIYGXNY6270-02-27 01:25:000.3 [facility] QpezddwUSGJIEUXUF8815-32-99 01:25:000.1[facility]annHEMATOLOGY 2014-06-09 01:25:001.1[facility] TjjfhrvLWVZJXEYPJ0361-66-55 01:25:0062.9[facility] UnjqjbiCECBHVAMBI5428-58-47 01:25:001.7[facility] WivtgbhWZYJDBXFXH9746-01-72 01:25:003.0[facility] BevvdwzLTHEYIKHDP9324-01-27 01:25:001.3[facility] BKXGBRRHLC3992-57-22 01:25:0013.0[facility] VvmimykDYGMSAMFMB1999-30-11 01:25:00 19.8[facility] XssnoorXXGAXIYHFL3329-22-79 01:25:005.3[facility]
[2021-02-14 19:04] LABS: Protime INR 0.98
[2021-02-14 19:05] LABS: Absolute Lymphocytes (CBC) 1.1 K/uL (0.7-4.9); Basophils % 0.5 % (0-1.3); Hematocrit 32.1 % (39.6-49.0); MPV 10.3 fL (7.6-11.3); RBC Red Blood Cell Count 3.57 M/uL (4.33-5.43)
[2021-02-14] MEDS ORDERED: LEVALBUTEROL 1.25 MG/3 ML NEB ONE (19:05)
[2021-02-14 19:13] LABS: Arterial Blood Carboxyhemoglob 1.5 % (0-1.5); Blood O2 Saturation 98.5 % (92-98.5)
[2021-02-14 19:15] LABS: Albumin 3.2 g/dL (3.4-5.0); Bilirubin Direct 0.1 mg/dL (0-0.2); Bilirubin Total 0.3 mg/dL (0.2-1.0); Magnesium 2.2 mg/dL (1.8-2.4); Potassium 4.3 mmol/L (3.5-5.1); Protein, Total 6.5 g/dL (6.4-8.2); Troponin (Emerg Dept Use Only) 0.02 ng/mL (0.0-0.045)
--- NOTE | 2021-02-14 19:32 | RAD REPORT ---
EXAM DESCRIPTION: RAD - Chest Single View - 02/14/2021 6:55 pm CLINICAL HISTORY: Cough;Dyspnea;SOB Chest pain. COMPARISON: Chest Single View dated 04/16/2020; Chest Single View dated 03/28/2020; Chest Single View dated 03/24/2020; Chest Pa And Lat (2 Views) dated 10/20/2019; Chest For Pe Angio dated 04/16/2020 FINDINGS: Portable technique limits examination quality. Mild interstitial pulmonary edema is seen. The heart moderately enlarged size. Calcification nodule i s present in right lung base laterally. No displaced fractures. IMPRESSION: Mild to moderate CHF.
--- NOTE | 2021-02-14 20:49 | RAD REPORT ---
EXAM DESCRIPTION: CT - Head Brain Wo Cont - 02/14/2021 8:41 pm CLINICAL HISTORY: CONFUSED Headache, drowsiness COMPARISON: Head Brain Wo Cont dated 10/19/2019; Head Brain W/Wo Con dated 07/26/2019 TECHNIQUE: All CT scans are performed using dose optimization technique as appropriate and may inclu de automated exposure control or mA/KV adjustment according to patient size. FINDINGS: No intracranial hemorrhage, hydrocephalus or extra-axial fluid collection.Significant brai n atrophy is seen particularly in the frontal lobe regions.No areas of brain edema or evidence of mid line shift. Mild vertebral atherosclerosis. The paranasal sinuses and mastoids are clear. The calvarium is intact. IMPRESSION: No acute intracranial abnormality. Prominent frontal lobe atrophy.
[2021-02-14 22:03] LABS: Blood Morphology Comment NOT SEEN (NOT SEEN); Platelet Estimate DECR
[2021-02-14 22:06] LABS: Arterial Blood Carboxyhemoglob 1.7 % (0-1.5); Blood Gas Oxyhemoglobin 91.6 % (94-97); Blood O2 Saturation 94.1 % (92-98.5)
--- NOTE | 2021-02-14 22:35 | ER ---
Nurse's Notes [facility] Name: Michael Duncan Age: 75 yrs Sex: Male : 1945 Arrival Date: 02/14/2021 Time: 18:24 Bed 4 Private MD: Diagnosis: Altered mental status, unspecified;Respiratory failure, unspecified with hypercapnia;Pulmonary edema Presentation: 02/14 18:[address] Vera and RT at bedside at this time. tw2 18:27 Chief complaint: EMS states: SOB AT [facility]. Coronavirus screen: shortness of bp breath. Ebola Screen: No symptoms or risks identified at this time. Initial Sepsis Screen: Does the patient meet any 2 criteria? No. Patient's initial sepsis screen is negative. Does the patient have a suspected source of infection? No. Patient's initial sepsis screen is negative. Risk Assessment: Do you want to hurt yourself or someone else? Patient reports no desire to harm self or others. Onset of symptoms was February 14, 2021 at 18:00. Care prior to arrival: Medication(s) given: 125 MG SOLU-MEDROL, DUONEB IV initiated. 18 GA, in the right wrist, Oxygen administered. via a nebulizer mask. 18:27 Method Of Arrival: EMS: [facility] bp 18:27 Acuity: SHAZIA 2 bp Historical: - Allergies: 18:26 caffiene; tw2 18:26 Codeine; tw2 - Home Meds: 18:35 TRESIBA [Active]; VENLAFAXINE [Active]; XARELTO [Active]; Xopenex Nebulizer 0.63 mg bp [Active]; levothyroxine oral [Active]; Lisinopril Oral [Active]; Melatonin Oral [Active]; NAMENDA [Active]; SITAGLIPTIN PHOSPHATE [Active]; Tramadol Oral [Active]; - PMHx: 18:26 Hypertension; Diabetes - NIDDM; Bipolar disorder; COPD; High Cholesterol; tw2 18:31 CHF; Depression; Dementia; Hyperlipidemia; bp - Immunization history:: Adult Immunizations. - Social history:: Smoking status: . Screenin:26 Abuse screen: Denies threats or abuse. Nutritional screening: No deficits noted. tw2 Tuberculosis screening: No symptoms or risk factors identified. Fall Risk None identified. Assessment: 18:50 General: Appears distressed, uncomfortable, Behavior is calm, cooperative, appropriate ld1 for age. Pain: Denies pain. Neuro: Level of Consciousness is awake, alert, obeys commands, Oriented to person, place, time, situation, Appropriate for age. Cardiovascular: Capillary refill < 3 seconds Patient's skin is warm and dry. Respiratory: Reports shortness of breath at rest on exertion cough that is non-productive, Airway is patent Respiratory effort is even, unlabored, Respiratory pattern is hypoventilation Patient placed on BiPAP: Inspiratory Pressure: 14 Expiratory (EPAP) Pressure: 7 FiO2%: 35 Respiratory Rate: 16 the patient has moderate shortness of breath. GI: Abdomen is round non-distended. : No signs and/or symptoms were reported regarding the genitourinary system. EENT: No signs and/or symptoms were reported regarding the EENT system. Derm: No signs and/or symptoms reported regarding the dermatologic system. Musculoskeletal: No signs and/or symptoms reported regarding the musculoskeletal system. 20:04 Reassessment: Mrs. Duncan [phone]. ea 21:49 Reassessment: Patient and/or family updated on plan of care and expected duration. Pain ea level reassessed. Pt remains on BiPAP respiratory at bedside for repeat ABG. 22:50 Reassessment: Patient appears in no apparent distress at this time. Patient is alert, rr5 oriented x 3, equal unlabored respirations, skin warm/dry/pink. for admission awaiting for room assignment. 23:09 Reassessment: Patient and/or family updated on plan of care and expected duration. Pain ea level reassessed. Pt remains on BiPAP. Awaiting on room assignment. 02/15 00:00 Reassessment: Patient appears in no apparent distress at this time. Patient is alert, rr5 oriented x 3, equal unlabored respirations, skin warm/dry/pink. spit bag given, urine output drain 1000ml. 01:00 Reassessment: Patient appears in no apparent distress at this time. Patient is alert, rr5 oriented x 3, equal unlabored respirations, skin warm/dry/pink. for transfer to room [facility], no complaints made. Vital Signs: 02/14 18:27 Pulse Ox 88% on R/A; bp 18:50 BP 134 / 114; Pulse 48; Resp 16; Temp 98.7(O); Pulse Ox 97% on BiPAP; ld1 19:30 BP 155 / 89; Pulse 89; Resp 24; Temp 98.5; Pulse Ox 98% on BiPAP; rr5 20:30 BP 141 / 79; Pulse 86; Resp 20; Pulse Ox 98% on BiPAP; rr5 22:11 BP 181 / 84; Pulse 60; Resp 18; Pulse Ox 99% ; ea 22:50 BP 172 / 79; Pulse 108; Resp 20; Pulse Ox 94% on BiPAP; rr5 02/15 00:00 BP 163 / 94; Pulse 92; Resp 22; Pulse Ox 99% on BiPAP; rr5 00:48 BP 165 / 85; Pulse 85; Resp 20; Pulse Ox 98% on BiPAP; rr5 ED Course: 02/14 18:24 Patient arrived in ED. tw2 18:24 Arm band placed on. tw2 18:24 Bed in low position. Call light in reach. Side rails up X2. child monitor on. Pulse tw2 ox on. NIBP on. 18:26 Chalino Vera MD is Attending Physician. kdr 18:27 Albert Aldrich, ALTAF is Primary Nurse. bp 18:29 Triage completed. bp 18:50 Inserted saline lock: 22 gauge in right hand, using aseptic technique. Blood collected. em1 18:50 No provider procedures requiring assistance completed. Maintain EMS IV. Dressing ld1 intact. Good blood return noted. Site clean \T\ dry. Gauge \T\ site: 18G RW. 18:54 XRAY Chest (1 view) In Process Unspecified. EDMS 19:04 Attending Physician role handed off by Chalino Vera MD rn 19:04 Sam Arguelles MD is Attending Physician. rn 19:57 Karina Kwong, ALTAF is Primary Nurse. ea 20:41 CT Head Brain wo Cont In Process Unspecified. EDMS 22:33 Sofi Gonzalez MD is Hospitalizing Provider. rn 02/15 00:13 [place] cath inserted, using sterile technique, 16 Fr., by dc, balloon inflated, to tt3 gravity drainage, clamped. 00:38 Patient admitted, IV remains in place. intact, No redness/swelling at site. rr5 Administered Medications: 02/14 18:49 Drug: Xopenex (levalbuterol) (3) 1.25 mg Route: Inhalation; ld1 20:00 Follow up: Response: No adverse reaction rr5 22:34 Drug: Lasix (furosemide) 40 mg Route: IVP; Site: right forearm; ea 23:30 Follow up: Response: No adverse reaction rr5 Output: 19:11 Urine: 600ml (Voided); Total: 600ml. bp 21:30 Urine: 350ml (Voided); Total: 950ml. rr5 02/15 01:00 Urine: 850ml (Mer[place]); Total: 1800ml. rr5 01:15 Urine: 1000ml (Mer[place]); Total: 2800ml. rr5 Outcome: 02/14 22:34 Decision to Hospitalize by Provider. rn 02/15 00:36 Condition: stable rr5 00:37 Admitted to Med/surg accompanied by nurse, via stretcher, room 212, with oxygen, with rr5 chart, Report called to galo 00:37 Instructed on the need for admit. 01:13 Patient left the ED. rr5 Signatures: Dispatcher [employer] EDMS Chalino Vera MD MD kdr Nieto, Roman, MD MD rn Martinez, Eric em1 Samira Heart RN RN tw2 Karina Kwong RN Albert Langston ea, RN RN bp Roque, Raymond RN RN rr5 Herson Oh tt3 Melissa Graham, ALTAF RN ld1 Corrections: (The following items were deleted from the chart) 00:49 00:48 BP 165 / 85; Pulse 85bpm; Resp 20bpm; Pulse Ox 98%; rr5 rr5
--- NOTE | 2021-02-14 22:36 | EDPHYS ---
Physician Documentation [facility] Name: Michael Duncan Age: 75 yrs Sex: Male : 1945 Arrival Date: 02/14/2021 Time: 18:24 Bed 4 Private MD: ED Physician Sam Arguelles HPI: 02/14 18:26 This 75 yrs old Male presents to ER via Unassigned with complaints of AMS and kdr SOB. 18:26 The patient presents with confusion, decreased mental status, decreased responsiveness. kdr Onset: The symptoms/episode began/occurred today. Possible causes: CVA or TIA, head injury. Associated signs and symptoms: Pertinent positives: confusion, gait abnormality, weakness. Current symptoms: In the emergency department the patient's symptoms are unchanged from the initial presentation. Patient's baseline: Neuro: alert and fully oriented, Motor: no deficits. The patient has not experienced similar symptoms in the past. The patient has not recently seen a physician. The patient reportedly fell on buttock about 5:30 AM today and was helped back to bed. His was visiting and the day was otherwise unremarkable. 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 The patient is now acutely SOB but easily arousable and answers questions promptly and appropriately. Historical: - Allergies: 18:26 caffiene; tw2 18:26 Codeine; tw2 - Home Meds: 18:35 TRESIBA [Active]; VENLAFAXINE [Active]; XARELTO [Active]; Xopenex Nebulizer 0.63 mg bp [Active]; levothyroxine oral [Active]; Lisinopril Oral [Active]; Melatonin Oral [Active]; NAMENDA [Active]; SITAGLIPTIN PHOSPHATE [Active]; Tramadol Oral [Active]; - PMHx: 18:26 Hypertension; Diabetes - NIDDM; Bipolar disorder; COPD; High Cholesterol; tw2 18:31 CHF; Depression; Dementia; Hyperlipidemia; bp - Immunization history:: Adult Immunizations. - Social history:: Smoking status: . ROS: 18:26 Constitutional: Negative for fever, chills, and weight loss, Eyes: Negative for injury, kdr pain, redness, and discharge, Neck: Negative for injury, pain, and swelling, Cardiovascular: Negative for chest pain, palpitations, and edema, Abdomen/GI: Negative for abdominal pain, nausea, vomiting, diarrhea, and constipation, Back: Negative for injury and pain, : Negative for injury, bleeding, discharge, and swelling, MS/Extremity: Negative for injury and deformity, Skin: Negative for injury, rash, and discoloration, Neuro: Negative for headache, weakness, numbness, tingling, and seizure activity. Psych: Negative for depression, anxiety, suicide ideation, homicidal ideation, and hallucinations, Allergy/Immunology: Negative for hives, rash, and allergies, Endocrine: Negative for neck swelling, polydipsia, polyuria, polyphagia, and marked weight changes. 18:26 Respiratory: Positive for cough, with no reported sputum, dyspnea on exertion, shortness of breath, wheezing, expiratory. Exam: 18:26 Constitutional: This is a well developed, well nourished patient who is awake, alert, kdr and in moderate distress. Head/Face: Normocephalic, atraumatic. Eyes: Pupils equal round and reactive to light, extra-ocular motions intact. Lids and lashes normal. Conjunctiva and sclera are non-icteric and not injected. Cornea within normal limits. Periorbital areas with no swelling, redness, or edema. Neck: Trachea midline, no thyromegaly or masses palpated, and no cervical lymphadenopathy. Supple, full range of motion without nuchal rigidity, or vertebral point tenderness. No Meningismus. Chest/axilla: Normal chest wall appearance and motion. Nontender with no deformity. No lesions are appreciated. Cardiovascular: Regular rate and rhythm with a normal S1 and S2. No gallops, murmurs, or rubs. Normal PMI, no JVD. No pulse deficits. Abdomen/GI: Soft, non-tender, with normal bowel sounds. No distension or tympany. No guarding or rebound. No evidence of tenderness throughout. Back: No spinal tenderness. No costovertebral tenderness. Full range of motion. Skin: Warm, dry with normal turgor. Normal color with no rashes, no lesions, and no evidence of cellulitis. MS/ Extremity: Pulses equal, no cyanosis. Neurovascular intact. Full, normal range of motion. Neuro: Awake and alert, GCS 15, oriented to person, place, time, and situation. Cranial nerves II-XII grossly intact. Motor strength 5/5 in all extremities. Sensory grossly intact. Cerebellar exam normal. Normal gait. Psych: Awake, alert, with orientation to person, place and time. Behavior, mood, and affect are within normal limits. 18:26 Cardiovascular: Edema: 2+ edema to level of left midcalf, left ankle, right midcalf and right ankle, pedal edema. 18:26 Respiratory: mild respiratory distress is noted, moderate respiratory distress is noted, Respirations: labored breathing, that is mild, Breath sounds: decreased breath sounds, that are moderate, are scattered, wheezing: expiratory that is moderate, is heard diffusely. 19:10 ECG was reviewed by the Attending Physician. kdr Vital Signs: 18:27 Pulse Ox 88% on R/A; bp 18:50 BP 134 / 114; Pulse 48; Resp 16; Temp 98.7(O); Pulse Ox 97% on BiPAP; ld1 19:30 BP 155 / 89; Pulse 89; Resp 24; Temp 98.5; Pulse Ox 98% on BiPAP; rr5 20:30 BP 141 / 79; Pulse 86; Resp 20; Pulse Ox 98% on BiPAP; rr5 22:11 BP 181 / 84; Pulse 60; Resp 18; Pulse Ox 99% ; ea 22:50 BP 172 / 79; Pulse 108; Resp 20; Pulse Ox 94% on BiPAP; rr5 02/15 00:00 BP 163 / 94; Pulse 92; Resp 22; Pulse Ox 99% on BiPAP; rr5 00:48 BP 165 / 85; Pulse 85; Resp 20; Pulse Ox 98% on BiPAP; rr5 MDM: 06 18:26 Data reviewed: vital signs, nurses notes, lab test result(s), radiologic studies. kdr Counseling: I had a detailed discussion with the patient and/or guardian regarding: the historical points, exam findings, and any diagnostic results supporting the discharge/admit diagnosis, lab results, radiology results. 18:40 Transition of care: After a detail discussion of the patient's case, care is kdr transferred to Sam Arguelles MD. 19:04 Patient medically screened. rn 22:29 Differential Diagnosis: CVA, electrolyte abnormality, pneumonia, TIA, UTI, volume rn depletion. Admission orders: after a detailed discussion of the patient's condition and case, the admit orders are written by me. ED course: ABG improved on bipap, will increase settings, and admit for AMS, hypercapnia, and CHF to hospitalist service. . 02/14 18:40 Order name: Basic Metabolic Panel; Complete Time: 20:28 [facility] 02/14 18:40 Order name: CBC with Diff; Complete Time: 22:27 [facility] 02/14 18:40 Order name: LFT's; Complete Time: 20:28 [facility] 02/14 18:40 Order name: Magnesium; Complete Time: 20:28 [facility] 02/14 18:40 Order name: NT PRO-BNP; Complete Time: 20:28 [facility] 02/14 18:40 Order name: PT-INR [facility] 02/14 18:40 Order name: Troponin (emerg Dept Use Only); Complete Time: 20:28 [facility] 02/14 18:49 Order name: Blood Culture Adult (2) 02/14 19:09 Order name: ABG Arterial Blood Gas; Complete Time: 20:28 [facility] 02/14 20:08 Order name: SARS-COV-2 RT PCR; Complete Time: 20:28 [facility] 02/14 22:03 Order name: Manual Differential; Complete Time: 22:27 [facility] 02/14 22:05 Order name: ABG Arterial Blood Gas; Complete Time: 22:27 [facility] 02/14 23:17 Order name: D-Dimer 02/14 18:40 Order name: XRAY Chest (1 view); Complete Time: 20:28 [facility] 02/14 18:40 Order name: EKG; Complete Time: 18:41 [facility] 02/14 18:40 Order name: Cardiac monitoring; Complete Time: 18:49 [facility] 02/14 18:40 Order name: EKG - Nurse/Tech; Complete Time: 18:50 [facility] 02/14 18:40 Order name: IV Saline Lock; Complete Time: 18:50 [facility] 02/14 18:40 Order name: Labs collected and sent; Complete Time: 18:49 [facility] 02/14 18:40 Order name: O2 Per Protocol; Complete Time: 18:49 [facility] 02/14 18:40 Order name: O2 Sat Monitoring; Complete Time: 18:49 [facility] 02/14 18:40 Order name: CT Head Brain wo Cont; Complete Time: 22:27 [facility] 02/14 18:40 Order name: BIPAP [facility] 02/14 23:24 Order name: CT Chest For PE Angio 02/14 23:41 Order name: CONS Physician Consult EDSC 02/15 00:38 Order name: [place]; Complete Time: 00:38 rr5 EC:10 Rate is 51 beats/min. Rhythm is irregular, Sinus arrythmia with Unifocal PVCs, kdr Occasional PVCs. QRS [place] is Normal. [place] interval is normal. QRS interval is normal. Clinical impression: Abnormal EKG without significant change. Administered Medications: 18:49 Drug: Xopenex (levalbuterol) (3) 1.25 mg Route: Inhalation; ld1 20:00 Follow up: Response: No adverse reaction rr5 22:34 Drug: Lasix (furosemide) 40 mg Route: IVP; Site: right forearm; ea 23:30 Follow up: Response: No adverse reaction rr5 Disposition: 22:29 Critical Care:. rn Disposition: 02/14/21 22:34 Hospitalization ordered by Sofi Gonzalez for Inpatient Admission. Preliminary diagnosis are Altered mental status, unspecified, Respiratory failure, unspecified with hypercapnia, Pulmonary edema. - Bed requested for Telemetry/MedSurg (Inpatient). - Status is Inpatient Admission. rr5 - Condition is Stable. - Problem is new. - Symptoms have improved. Critical care time excluding procedures: 22:29 Critical care time: Bedside Care: 25 minutes, Consultation: 5 minutes. Total time: 30 rn minutes Signatures: Dispatcher [employer] EDSC Leesa Mota RN RN Chalino Avila MD MD kdr Nieto, Roman, MD MD rn Wise, Tara, RN RN tw2 Karina Kwong RN RN ea Peltier, Brian, RN RN bp Roque, Raymond, RN RN rr5 Melissa Graham, ALTAF RN ld1 Corrections: (The following items were deleted from the chart) 19:12 18:46 CORONAVIRUS+MR.LAB.MARIOZ ordered. EDSC EDSC 23:45 22:34 Hospitalization Ordered by Sofi Gonzalez MD for Inpatient Admission. Preliminary mw diagnosis is Altered mental status, unspecified; Respiratory failure, unspecified with hypercapnia; Pulmonary edema. Bed requested for Telemetry/MedSurg (Inpatient). Status is Inpatient Admission. Condition is Stable. Problem is new. Symptoms have improved. rn 02/15 01:13 02/14 23:45 02/14/2021 22:34 Hospitalization Ordered by Sofi Gonzalez MD for Inpatient rr5 Admission. Preliminary diagnosis is Altered mental status, unspecified; Respiratory failure, unspecified with hypercapnia; Pulmonary edema. Bed requested for Telemetry/MedSurg (Inpatient). Status is Inpatient Admission. Condition is Stable. Problem is new. Symptoms have improved. mw
[2021-02-14] MEDS ORDERED: FUROSEMIDE 40 MG/4 ML VIAL ONE (22:52)
[2021-02-15 01:18] VITALS: BMI 37.2
[2021-02-15] MEDS ORDERED: ACETAMINOPHEN 500 MG TAB PO PRN (01:19)
[2021-02-15] MEDS ORDERED: METHYLPREDNISOLONE 125 MG INJ IV SCH (01:19)
[2021-02-15] MEDS ORDERED: ONDANSETRON 4 MG/2 ML VIAL IV PRN (01:19)
[2021-02-15] MEDS ORDERED: BENZONATATE 100 MG CAP PO PRN (01:19)
[2021-02-15] MEDS ORDERED: Levofloxacin 750mg IV 750 MG/150 ML BAG IV SCH (02:00)
[2021-02-15] MEDS: IPRATROPIUM BROM 0.5MG/2.5ML NEB SCH ×4 (02:20→19:45)
[2021-02-15] MEDS: ALBUTEROL 2.5 MG/3 ML NEB SOL NEB SCH ×4 (02:20→19:45)
[2021-02-15] MEDS ORDERED: ALBUTEROL 2.5 MG/3 ML NEB SOL ONE (02:21)
[2021-02-15] MEDS ORDERED: IPRATROPIUM BROM 0.5MG/2.5ML ONE (02:21)
[2021-02-15] MEDS ORDERED: HYDRALAZINE HCL 20 MG/ML VIAL IV PRN (02:50)
--- NOTE | 2021-02-15 03:16 | P.HP ---
Certification for Inpatient Patient admitted to: Inpatient With expected LOS: >2 Midnights Patient will require the following post-hospital care: None Practitioner: I am a practitioner with admitting privileges, knowledge of patient current condition, hospital course, and medical plan of care. Services: Services provided to patient in accordance with Admission requirements found in Title 42 Section 412.3 of the Code of Federal Regulations Patient History Date of Service: 02/15/21 History of Present Illness: Mr. Duncan is a 75 yo M with COPD on 2-3L of O2, CHF, DM, HTN, HLD here today from [facility] for SOB and AMS beginning at 5:30pm. Earlier in the day, the patient says he fell on buttock and was helped back to bed. Patient is now alert and oriented, and able to answer questions. He says symptoms began a few days ago with cough, sputum, SOB, and CAPONE. CT scan shows focal areas of consolidation or atelectasis in posterior right upper lobe and right lower lobe, small bilateral pleural effusions, scatted small groundglass opacities bilaterally, and subacute to remote left posterior rib fractures. Plt 128. Na 129. Cl 87. Glu 143. BNP 2850. Allergies caffeine Allergy (Verified 03/12/19 22:27) Anaphylaxis codeine Allergy (Verified 03/12/19 22:27) Anaphylaxis Home Medications: Acetaminophen 650 mg PO Q6HP PRN 04/16/20 Alprazolam [Xanax] 0.5 mg PO Q8HP PRN 04/16/20 Amiodarone HCl [Cordarone*] 200 mg PO DAILY 04/16/20 Atorvastatin Calcium [Lipitor*] 10 mg PO BEDTIME 04/16/20 Betaxolol HCl [Betagan] 1 drop EACH EYE BID 04/16/20 Brimonidine Tartrate/Timolol [Combigan 0.2%-0.5% Eye Drops] 1 drop EACH EYE BID 04/16/20 Buspirone HCl [Buspar] 10 mg PO TID 04/16/20 Insulin Degludec [Tresiba Flextouch U-100] 60 units SQ DAILY 04/16/20 Phenol [Chloraseptic] 2 spray PO Q4HP PRN 04/16/20 Rivaroxaban [Xarelto] 20 mg PO DAILY 04/16/20 Sitagliptin Phosphate [Januvia*] 100 mg PO DAILY 04/16/20 Venlafaxine HCl [Effexor Xr] 75 mg PO DAILY 04/16/20 Zinc Sulfate [Zinc Sulfate*] 220 mg PO DAILY 04/16/20 acetaZOLAMIDE [Diamox*] 250 mg PO DAILY 04/16/20 carvediloL [Carvedilol] 6.25 mg PO BID 04/16/20 Arformoterol Tartrate [Brovana] 15 mcg NEB BIDRESP #60 vial.neb 04/17/20 Levalbuterol HCl [Xopenex] 3 ml IH TID PRN #90 vial.neb 04/17/20 predniSONE [Deltasone*] 10 mg PO DAILY #7 tab 04/17/20 - Past Medical/Surgical History Diabetic: Yes -: Severe COPD -: DM NIDDM -: HTN -: High cholesterol -: Bipolar -: CHF -: Heart stents Psychosocial/ Personal History: [facility] resident - Family History Mother -: Stroke Notes: Stroke - Social History Smoking Status: Former smoker Alcohol use: No CD- Drugs: No Caffeine use: No Place of Residence: Longterm Review of Systems 10-point ROS is otherwise unremarkable Respiratory: Cough, Shortness of Breath, SOB with Excertion, Sputum Neurological: Confusion Physical Examination - Vital Signs Temperature: 97.2 F Blood Pressure: 177/87 Pulse: 59 Respirations: 22 Pulse Ox (%): 98 - Physical Exam General: Alert, In no apparent distress HEENT: Atraumatic, PERRLA, Mucous membr. moist/pink, EOMI, Sclerae nonicteric Neck: Supple, 2+ carotid pulse no bruit, No LAD, Without JVD or thyroid abnormality Respiratory: Diminished, Expiratory wheezes Cardiovascular: Normal pulses, Regular rate/rhythm, Normal S1 S2, No gallops, No rubs, No murmurs, Edema Capillary refill: <2 Seconds Gastrointestinal: Normal bowel sounds, No tenderness Musculoskeletal: No tenderness Integumentary: No rashes Neurological: Normal speech, Normal strength at 5/5 x4 extr, Normal tone, Normal affect Lymphatics: No axilla or inguinal lymphadenopathy Urinary: Merida catheter - Studies Laboratory Data (last 24 hrs) 02/14/21 18:45: PT 11.3, INR 0.98 02/14/21 18:45: WBC 7.60, Hgb 10.4 L, Hct 32.1 L, Plt Count 128 L 02/14/21 18:45: Sodium 129 L, Potassium 4.3, BUN 23 H, Creatinine 1.25, Glucose 143 H, Magnesium 2.2, Total Bilirubin 0.3, AST 24, ALT 14, Alkaline Phosphatase 80 Assessment and Plan - Problems (Diagnosis) (1) HLD (hyperlipidemia) Current Visit: Yes Status: Chronic Qualifiers: Hyperlipidemia type: unspecified Qualified Code(s): E78.5 - Hyperlipidemia, unspecified (2) CHF (congestive heart failure), NYHA class II Current Visit: No Status: Acute Qualifiers: Congestive heart failure type: unspecified Qualified Code(s): I50.9 - Heart failure, unspecified (3) COPD exacerbation Current Visit: No Status: Acute (4) Diabetes 1.5, managed as type 2 Current Visit: No Status: Chronic (5) HTN (hypertension) Current Visit: No Status: Chronic Qualifiers: Hypertension type: essential hypertension Qualified Code(s): I10 - Essential (primary) hypertension (6) Respiratory failure Current Visit: No Status: Acute Qualifiers: Chronicity: acute Respiratory failure complication: hypercapnia Qualified Code(s): J96.02 - Acute respiratory failure with hypercapnia - Plan pulm consulted, RT consulted, continue BiPAP continue IV steroids, breathing treatments, IV abx sputum culture and blood cultures pending continue IV Lasix BID, ECHO pending will monitor BMP SCDs BP stable, hydralazine for PRN BP spikes sliding scale insulin and accuchecks will reconcile and continue home medications Discharge Plan: Longterm Plan to discharge in: 72 Hours - Advance Directives Does patient have a Living Will: No Does patient have a Durable POA for Healthcare: Yes - Code Status/Comfort Care Code Status Assessed: Yes (full code ) Critical Care: No Time Spent Managing Pts Care (In Minutes): 70
[2021-02-15 03:29] LABS: Absolute Lymphocytes (CBC) 0.3 K/uL (0.7-4.9); Basophils % 1.8 % (0-1.3); Hematocrit 34.8 % (39.6-49.0); Lymphocytes % 4.3 % (15.3-44.8); MPV 10.6 fL (7.6-11.3); RBC Red Blood Cell Count 3.88 M/uL (4.33-5.43)
[2021-02-15 03:48] LABS: Albumin 2.7 g/dL (3.4-5.0); Bilirubin Total 0.4 mg/dL (0.2-1.0); Magnesium 1.9 mg/dL (1.8-2.4); Phosphorus 2.3 mg/dL (2.5-4.9); Potassium 4.2 mmol/L (3.5-5.1); Protein, Total 6.9 g/dL (6.4-8.2); Thyroid Stimulating Hormone 1.09 uIU/mL (0.360-3.740)
[2021-02-15 04:41] LABS: Blood Morphology Comment NOT SEEN (NOT SEEN); Platelet Estimate ADEQ
[2021-02-15 05:31] LABS: Urine Appearance CLEAR (Clear); Urine Bilirubin NEGATIVE (Negative); Urine Blood 2+ (Negative); Urine Color YELLOW (Yellow); Urine Glucose NEGATIVE (Negative); Urine Protein 2+ (Negative); Urine Urobilinogen 0.2 mg/dL (0.2-1.0); Urine pH 8.5 (5.0-7.0)
[2021-02-15 05:32] LABS: Urine Microscopic Reflex ORDER UMIC
[2021-02-15 06:03] LABS: Urine Bacteria <20 /HPF (NONE SEEN)
--- NOTE | 2021-02-15 08:18 | EKG ---
Test Date: 2021-02-14 Test Time: 18:31:06 Cosmetic Chemist: KULWINDER MEASUREMENT RESULTS: Intervals: Rate: 51 OR: 200 QRSD: 92 QT: 468 QTc: 431 [place]: P: OR: 200 QRS: 30 T: 11 INTERPRETIVE STATEMENTS: Sinus bradycardia with premature atrial complexes with aberrant conduction Otherwise normal ECG Compared to ECG 04/16/2020 01:45:50 Atrial premature complex(es) now present Aberrant conduction of supraventricular beat(s) now present Myocardial infarct finding no longer present Electronically Signed On 02-15-21 08:18:06 CDT by Kade Garcia
--- NOTE | 2021-02-15 08:31 | P.CNS ---
Date of Consult: 02/15/21 Chief Complaint: Respiratory failure History of Present Illness: Patient is 75 years of age with a history of COPD metabolic syndrome on home O2 been having problems for the past 2 weeks admitted with worsening shortness of breath he had a recent fall he is very alert responsive oriented cooperative denies any symptoms of pneumonia cough fever or chills he feels better now lives in a detention has home oxygen Labs reviewed bicarbonate elevated history of sleep apnea patient non compliant Allergies caffeine Allergy (Verified 03/12/19 22:27) Anaphylaxis codeine Allergy (Verified 03/12/19 22:27) Anaphylaxis Home Medications: ALPRAZolam [Xanax] 0.5 mg PO BID 02/15/21 Acetaminophen [Tylenol] 325 mg PO BID 02/15/21 Amiodarone HCl [Cordarone Tab] 200 mg PO DAILY 02/15/21 Atorvastatin Calcium 10 mg PO BEDTIME 02/15/21 Brimonidine/Dorzolamide/Pf [Brimonidine 0.15%-Dorzolam 2%] 10 ml OP DAILY 02/15/21 Buspirone HCl [Buspar] 5 mg PO TID 02/15/21 Carvedilol [Coreg] 3.125 mg PO BID 02/15/21 Divalproex Sodium [Depakote ER] 625 mg PO BID 02/15/21 Docusate [Colace Cap] 100 mg PO BID 02/15/21 Doxepin HCl [Sinequan] 25 mg PO BEDTIME 02/15/21 Furosemide [Lasix] 40 mg PO DAILY 02/15/21 Gabapentin [Neurontin] 100 mg PO TID 02/15/21 Insulin Degludec [Tresiba Flextouch U-100] 60 unit SQ DAILY 02/15/21 Levalbuterol HCl [Xopenex] 0.63 mg IH Q8HR 02/15/21 Levothyroxine [Synthroid] 100 mcg PO [id number] 02/15/21 Lisinopril [Zestril] 20 mg PO DAILY 02/15/21 Magnesium Hydroxide [Milk of Magnesia] 30 ml PO DAILY PRN 02/15/21 Melatonin 12 mg PO BEDTIME 02/15/21 Memantine HCl [Namenda] 10 mg PO BID 02/15/21 Polyethylene Glycol 3350 [Miralax] 17 gm PO DAILY 02/15/21 Potassium Oral Tab [Klor-Con 10 mEq Tab] 10 meq PO DAILY 02/15/21 Rivaroxaban [Xarelto] 20 mg PO DAILY 02/15/21 Sitagliptin Phosphate [Januvia] 100 mg PO DAILY 02/15/21 Timolol 0.5% Opth [Timoptic 0.5% Opth*] 1 drops EACH EYE BID 02/15/21 Tramadol HCl [Ultram] 50 mg PO Q6HR PRN MDD 4 tabs 02/15/21 Venlafaxine HCl 75 mg PO DAILY 02/15/21 Zinc 50 mg PO DAILY 02/15/21 acetaZOLAMIDE [Diamox] 250 mg PO DAILY 02/15/21 cloNIDine HCL [Clonidine HCl] 0.1 mg PO BID 02/15/21 - Past Medical/Surgical History Diabetic: Yes -: Severe COPD -: DM NIDDM -: HTN -: High cholesterol -: Bipolar -: CHF -: Heart stents Psychosocial/ Personal History: [facility] resident - Family History Mother Medical History: Stroke Notes: Stroke - Social History Smoking Status: Unknown if ever smoked Alcohol use: No CD- Drugs: No Caffeine use: No Place of Residence: [facility] Review of Systems 10-point ROS is otherwise unremarkable General: Weakness Respiratory: Shortness of Breath Gastrointestinal: Constipation Physical Examination Temp Pulse Resp BP Pulse Ox 100.0 F 61 21 H 144/77 H 100 02/15/21 04:00 02/15/21 04:00 02/15/21 04:00 02/15/21 04:00 02/15/21 04:00 General: Alert, In no apparent distress, Oriented x3 HEENT: Atraumatic Neck: Supple Respiratory: Clear to auscultation bilaterally Cardiovascular: No edema, Regular rate/rhythm, Normal S1 S2 Gastrointestinal: Normal bowel sounds, Soft and benign Musculoskeletal: No clubbing Integumentary: No rashes, No breakdown Neurological: Normal speech, Cranial nerves 3-12 intact Laboratory Data (last 24 hrs) 02/14/21 18:45: PT 11.3, INR 0.98 02/14/21 18:45: WBC 7.60, Hgb 10.4 L, Hct 32.1 L, Plt Count 128 L 02/14/21 18:45: Sodium 129 L, Potassium 4.3, BUN 23 H, Creatinine 1.25, Glucose 143 H, Magnesium 2.2, Total Bilirubin 0.3, AST 24, ALT 14, Alkaline Phosphatase 80 - Problems (1) Respiratory failure Current Visit: Yes Status: Acute Plan: Patient is 75 years of age admitted with respiratory failure at baseline he is very hypercapnic probably has a combination of COPD and sleep apnea for obesity hyperventilation syndrome patient is on Diamox at home recommend change to noninvasive ventilator at home Patient will benefit from a noninvasive ventilator at home due to severity of his condition a BiPAP is deemed inappropriate O fully this will help to reduce is hospital admissions CT scan no evidence of pneumonia may have bilateral effusions history of diastolic dysfunction patient is in normal sinus rhythm thyroid function tests is normal Qualifiers: Chronicity: acute on chronic
[2021-02-15] MEDS ORDERED: FUROSEMIDE 40 MG/4 ML VIAL IV SCH (09:00)
[2021-02-15] MEDS: BRIMONIDINE OPTH SCH (09:17)
[2021-02-15] MEDS ORDERED: MAGNESIUM HYDROXIDE 8% 30 ML PO PRN (09:17)
[2021-02-15] MEDS: [UNRECOGNIZED DRUG - OTHER] OPTH SCH (09:17)
[2021-02-15] MEDS: DORZOLAMIDE OPTH SCH (09:17)
[2021-02-15] MEDS ORDERED: TRAMADOL HCL 50 MG TAB PO PRN (09:17)
[2021-02-15] MEDS ORDERED: acetaZOLAMIDE 250 MG TAB PO SCH (09:17)
[2021-02-15] MEDS ORDERED: HOME MED 1 EA UNK (Divalproex Sodium [Depakote Er] 500 MG Tab.Er.24h) PO SCH (09:18)
[2021-02-15] MEDS: TIMOLOL MALEATE 0.5% OPTH 5 ML BTL EACH EYE SCH ×2 (09:20→20:54)
[2021-02-15] MEDS: RIVAROXABAN 20 MG TABLET PO SCH (09:39)
[2021-02-15] MEDS: FUROSEMIDE 40 MG/4 ML VIAL IV SCH ×2 (09:39→16:55)
[2021-02-15] MEDS: acetaZOLAMIDE 250 MG TAB PO SCH ×2 (09:40→20:52)
[2021-02-15] MEDS: POTASS/SODIUM PHOSPHATE 1 PKT POWD.PACK PO SCH ×3 (09:40→13:38)
[2021-02-15] MEDS: VENLAFAXINE HCL 75 MG TABLET PO SCH (09:40)
[2021-02-15] MEDS: DOCUSATE NA 100 MG CAP PO SCH ×2 (09:40→20:52)
[2021-02-15] MEDS: cloNIDine HCL 0.1 MG TAB PO SCH ×2 (09:40→20:51)
[2021-02-15] MEDS: SITAGLIPTIN PHOS 100 MG TAB PO SCH (09:40)
[2021-02-15] MEDS: BUSPIRONE HCL 5 MG TABLET PO SCH ×3 (09:40→20:52)
[2021-02-15] MEDS: AMIODARONE HCL 200 MG TAB PO SCH (09:41)
[2021-02-15] MEDS: INSULIN -REGULAR HUMAN 50 UNIT/0.5 ML ML SQ SCH ×4 (09:41→20:54)
--- NOTE | 2021-02-15 11:21 | RAD REPORT ---
EXAM DESCRIPTION: CT - Chest For Pe Angio - 02/15/2021 4:21 am CLINICAL HISTORY: The patient is 75 years old and is Male; COPD TECHNIQUE: Axial computed tomographic angiography images of the chest with intravenous contrast. S agittal and coronal reformatted images were created and reviewed. This CT exam was performed using one or more of the following dose reduction techniques: automated exposure control, adjustment of t he mA and/or kV according to patient size, and/or use of iterative reconstruction technique. MIP re constructed images were created and reviewed. COMPARISON: CT chest 04/16/2020. FINDINGS: Pulmonary arteries: Unremarkable. No pulmonary embolism. Aorta: Scattered atherosclerotic vascular calcifications. No thoracic aortic aneurysm. Lungs: Focal areas of consolidation or atelectasis in the posterior right upper lobe and the rig ht lower lobe. Scattered small groundglass opacities bilaterally. 1.9 cm calcified granuloma in the right lower lobe. Pleural space: Suggestion of small bilateral pleural effusions, but evaluation is limited by mot ion artifact. No pneumothorax. Heart: Unremarkable. No cardiomegaly. No significant pericardial effusion. No evidence of RV dysfunction. Mediastinum: There is debris in the esophagus. Bones/joints: Subacute to remote left posterior rib fractures. No dislocation. Soft tissues: Unremarkable. Lymph nodes: Unremarkable. No enlarged lymph nodes. IMPRESSION: 1. Focal areas of consolidation or atelectasis in the posterior right upper lobe and t he right lower lobe. 2. Suggestion of small bilateral pleural effusions, but evaluation is limited by motion artifact. 3. Scattered small groundglass opacities bilaterally. Findings are nonspecific but can be seen wi th infectious and inflammatory etiologies. 4. Subacute to remote left posterior rib fractures. Electronically signed by: Frank Callejas MD 02/15/2021 1:49 AM CDT Due to temporary technical issues with the PACS/Fluency reporting system, reports are being signed by the in house radiologist without review as a courtesy to ensure prompt reporting. The interpreting r adiologist is fully responsible for the content of the report.
[2021-02-15] MEDS: lisinopriL 20 MG TAB PO SCH (12:12)
[2021-02-15] MEDS: ZINC SULFATE 220 MG CAP PO SCH (12:12)
--- NOTE | 2021-02-15 12:43 | P.PN ---
Subjective Date of Service: 02/15/21 Chief Complaint: Respiratory failure Patient restless and agitated this morning and asking for his buspirone. He states his breathing is much better. He is off BiPAP. Physical Examination - Vital Signs Temperature: 98.4 F Blood Pressure: 140/62 Pulse: 61 Respirations: 21 Pulse Ox (%): 95 - Physical Exam General: In no apparent distress, Confused, Obese HEENT: Mucous membr. moist/pink Neck: JVD not distended Respiratory: Clear to auscultation bilaterally, Diminished Cardiovascular: Regular rate/rhythm, Normal S1 S2, Edema (Left lower extremity greater than right lower extremity) Gastrointestinal: Normal bowel sounds, Soft and benign, Non-distended, No tenderness Musculoskeletal: No clubbing, No contractures Integumentary: No erythema Neurological: Other (No focal motor deficit) - Studies Laboratory Data (last 24 hrs) 02/14/21 18:45: PT 11.3, INR 0.98 02/14/21 18:45: WBC 7.60, Hgb 10.4 L, Hct 32.1 L, Plt Count 128 L 02/14/21 18:45: Sodium 129 L, Potassium 4.3, BUN 23 H, Creatinine 1.25, Glucose 143 H, Magnesium 2.2, Total Bilirubin 0.3, AST 24, ALT 14, Alkaline Phosphatase 80 Microbiology Data (last 24 hrs): 02/14/21 18:50 Blood - Blood Anaerobic Blood Culture - Final Assessment And Plan - Current Problems (Diagnosis) (1) Acute respiratory failure with hypoxia and hypercapnia Current Visit: Yes Status: Acute (2) Diabetes mellitus Current Visit: Yes Status: Acute (3) COPD exacerbation Current Visit: No Status: Acute (4) Acute on chronic diastolic (congestive) heart failure Current Visit: Yes Status: Acute (5) Metabolic encephalopathy Current Visit: Yes Status: Acute (6) Morbid obesity Current Visit: Yes Status: Acute - Plan Continue IV Lasix. Continue bronchodilators. BiPAP p.r.n. for CO2 retention. Pulmonary input appreciated. Non-invasive ventilation recommended at home. Resume his psych medications-Xanax and Buspirone. Continue Diamox for alkalosis. Monitor renal function. Continue anticoagulation and amiodarone.
[2021-02-15] MEDS ORDERED: GABAPENTIN 100 MG CAP PO SCH (14:00)
[2021-02-15] MEDS ORDERED: RIVAROXABAN 20 MG TABLET PO SCH (17:00)
[2021-02-15] MEDS: MELATONIN 3 MG TABLET PO SCH (20:51)
[2021-02-15] MEDS: ALPRAZOLAM 0.5 MG TABLET PO SCH (20:52)
[2021-02-15] MEDS: MEMANTINE HCL 10 MG TABLET PO SCH (20:52)
[2021-02-15] MEDS: ATORVASTATIN 10 MG TAB PO SCH (20:52)
[2021-02-15] MEDS: DOXEPIN HCL 25 MG CAP PO SCH (20:52)
[2021-02-15] MEDS: DIVALPROEX DR 500MG TAB PO SCH (20:53)
[2021-02-15] MEDS: DIVALPROEX DR 250 MG TAB PO SCH (20:53)
[2021-02-16] MEDS: ALBUTEROL 2.5 MG/3 ML NEB SOL NEB SCH ×4 (02:15→20:35)
[2021-02-16] MEDS: IPRATROPIUM BROM 0.5MG/2.5ML NEB SCH ×4 (02:15→20:35)
[2021-02-16] MEDS ORDERED: LEVOTHYROXINE SOD 0.1 MG TAB PO SCH (06:00)
[2021-02-16 07:09] LABS: Absolute Lymphocytes (CBC) 1.6 K/uL (0.7-4.9); Basophils % 0.8 % (0-1.3); Hematocrit 35.3 % (39.6-49.0); Lymphocytes % 16.4 % (15.3-44.8); MPV 10.1 fL (7.6-11.3); RBC Red Blood Cell Count 4.02 M/uL (4.33-5.43)
[2021-02-16 07:25] LABS: Phosphorus 3.2 mg/dL (2.5-4.9)
[2021-02-16] MEDS: INSULIN -REGULAR HUMAN 50 UNIT/0.5 ML ML SQ SCH ×4 (07:30→20:49)
[2021-02-16 07:42] LABS: Potassium 2.9 mmol/L (3.5-5.1)
--- NOTE | 2021-02-16 08:41 | ECHO ---
HEIGHT: 6 ft 1 in WEIGHT: 285 lb 9.6 oz DATE OF STUDY: 02/15/[address]: Cristobal Nava 2-DIMENSIONAL: YES M.MODE: YES DOPPLER: YES COLOR FLOW: YES TDS: NO PORTABLE: NO DEFINITY: NO BUBBLE STUDY: NO DIAGNOSIS: VOLUME OVERLOAD CARDIAC HISTORY: CATHERIZATION: NO SURGERY: NO PROSTHETIC VALVE: NO PACEMAKER: NO MEASUREMENTS (cm) DIASTOLIC (NORMALS) SYSTOLIC (NORMALS) IVSd 1.1 (0.6-1.2) LA Diam 3.6 (1.9-4.0) LVEF % LVIDd 5.8 (3.5-5.7) LVIDs 4.9 (2.0-3.5) %FS % LVPWd 1.2 (0.6-1.2) Ao Diam 2.8 (2.0-3.7) 2 DIMENSIONAL ASSESSMENT: RIGHT ATRIUM: NORMAL LEFT ATRIUM: NORMAL RIGHT VENTRICLE: NORMAL LEFT VENTRICLE: NORMAL TRICUSPID VALVE: NORMAL MITRAL VALVE: NORMAL PULMONIC VALVE: NORMAL AORTIC VALVE: NORMAL PERICARDIAL EFFUSION: NONE AORTIC ROOT: NORMAL LEFT VENTRICULAR WALL MOTION: NORMAL DOPPLER/COLOR FLOW: NORMAL COMMENTS: NORMAL 2D ECHOCARDIOGRAM WITH DOPPLER. NO WALL MOTION ABNORMALITY. NO EFFUSION. TECHNOLOGIST: Natalia BRUNER
[2021-02-16] MEDS: DORZOLAMIDE OPTH SCH (09:00)
[2021-02-16] MEDS: [UNRECOGNIZED DRUG - OTHER] OPTH SCH (09:00)
[2021-02-16] MEDS ORDERED: HOME MED 1 EA UNK (Insulin Degludec [Tresiba Flextouch U-100] 100 UNIT/ML Insuln.Pen) SQ SCH (09:00)
[2021-02-16] MEDS: KCL 20 MEQ/100 mL IVPB 20 MEQ/100 ML BAG IV SCH ×3 (09:00→14:13)
[2021-02-16] MEDS: BRIMONIDINE OPTH SCH (09:00)
[2021-02-16] MEDS ORDERED: POTASSIUM CL SA 10 MEQ TAB PO SCH (09:00)
[2021-02-16] MEDS: FUROSEMIDE 40 MG/4 ML VIAL IV SCH ×2 (09:58→17:07)
[2021-02-16] MEDS: AMIODARONE HCL 200 MG TAB PO SCH (09:58)
[2021-02-16] MEDS: MEMANTINE HCL 10 MG TABLET PO SCH ×2 (09:58→20:55)
[2021-02-16] MEDS: cloNIDine HCL 0.1 MG TAB PO SCH ×2 (09:59→20:59)
[2021-02-16] MEDS: SITAGLIPTIN PHOS 100 MG TAB PO SCH (09:59)
[2021-02-16] MEDS: DIVALPROEX DR 500MG TAB PO SCH ×2 (09:59→20:56)
[2021-02-16] MEDS: lisinopriL 20 MG TAB PO SCH (09:59)
[2021-02-16] MEDS: BUSPIRONE HCL 5 MG TABLET PO SCH ×3 (10:00→20:56)
[2021-02-16] MEDS: ALPRAZOLAM 0.5 MG TABLET PO SCH ×2 (10:00→20:55)
[2021-02-16] MEDS: DIVALPROEX DR 250 MG TAB PO SCH ×2 (10:00→20:56)
[2021-02-16] MEDS: RIVAROXABAN 20 MG TABLET PO SCH (10:00)
[2021-02-16] MEDS: DOCUSATE NA 100 MG CAP PO SCH ×2 (10:00→20:56)
[2021-02-16] MEDS: acetaZOLAMIDE 250 MG TAB PO SCH ×2 (10:00→20:56)
[2021-02-16] MEDS: TIMOLOL MALEATE 0.5% OPTH 5 ML BTL EACH EYE SCH ×2 (10:00→21:00)
[2021-02-16] MEDS: VENLAFAXINE HCL 75 MG TABLET PO SCH (10:01)
[2021-02-16] MEDS: ZINC SULFATE 220 MG CAP PO SCH (12:17)
--- NOTE | 2021-02-16 13:35 | P.DS ---
Admission Date: 02/14/21 Discharge Date: 02/16/21 Disposition: TRANSFER TO PRISON Discharge Condition: FAIR Reason for Admission: Respiratory failure - Problems (1) Acute respiratory failure with hypoxia and hypercapnia Current Visit: Yes Status: Acute (2) Diabetes mellitus Current Visit: Yes Status: Acute (3) COPD exacerbation Current Visit: No Status: Acute (4) Acute on chronic diastolic (congestive) heart failure Current Visit: Yes Status: Acute (5) Metabolic encephalopathy Current Visit: Yes Status: Acute (6) Morbid obesity Current Visit: Yes Status: Acute Brief History of Present Illness: 75-year-old care home resident with a history of COPD on 2-3 L of oxygen by nasal cannula, history of DM,hypertension, obstructive sleep apnea, obesity hypoventilation was brought to the emergency department from the care home due to shortness of breath and altered mental status. Blood work done in the emergency department demonstrated hypercapnia. Patient was placed on BiPAP. CTA thorax demonstrated focal areas of opacity versus atelectasis as well as ground-glass opacities. Patient is hospitalized for further management. Hospital Course: Patient admitted to the medical floor and treated for hypercapnia with BIPAP and bronchodilators. Patient clinically improved with no non-invasive ventilation the was back to baseline. He tolerated oxygen by nasal cannula. Today patient has no symptoms. He denies any pain. He reported his BiPAP broke in the care home and the eye yet to fix it. Patient seen in consultation by pulmonary who recommended outpatient non-invasive ventilation.Patient's NIV is fixed per Social Service team. He is at baseline and deemed stable for transfer back to the care home. His acetazolamide dose increased to 22 mg b.i.d. no other changes made in his home medications. Vital Signs/Physical Exam: Temp Pulse Resp BP Pulse Ox 96.9 F 51 23 H 144/76 H 100 02/16/21 08:00 02/16/21 09:59 02/16/21 08:00 02/16/21 09:59 02/16/21 08:00 General: Alert, In no apparent distress, Oriented x3, Obese HEENT: Mucous membr. moist/pink Neck: JVD not distended Respiratory: Clear to auscultation bilaterally, Diminished Cardiovascular: No edema, Regular rate/rhythm, Normal S1 S2 Gastrointestinal: Soft and benign, Non-distended, No tenderness Musculoskeletal: No swelling Neurological: Normal speech, Other (No focal motor deficit.) Laboratory Data at Discharge: WBC 9.60 K/uL (4.3-10.9) D 02/16/21 06:22 Hgb 11.6 g/dL (13.6-17.9) L 02/16/21 06:22 Hct 35.3 % (39.6-49.0) L 02/16/21 06:22 Plt Count 159 K/uL (152-406) 02/16/21 06:22 PT 11.3 SECONDS (9.5-12.5) 02/14/21 18:45 INR 0.98 02/14/21 18:45 Sodium 132 mmol/L (136-145) L 02/16/21 06:22 Potassium 2.9 mmol/L (3.5-5.1) L* 02/16/21 06:22 BUN 27 mg/dL (7-18) H 02/16/21 06:22 Creatinine 1.41 mg/dL (0.55-1.3) H 02/16/21 06:22 Glucose 99 mg/dL (74-106) 02/16/21 06:22 Phosphorus 3.2 mg/dL (2.5-4.9) 02/16/21 06:22 Magnesium 1.9 mg/dL (1.8-2.4) 02/15/21 02:21 Total Bilirubin 0.4 mg/dL (0.2-1.0) 02/15/21 02:21 AST 21 U/L (15-37) 02/15/21 02:21 ALT 16 U/L (12-78) 02/15/21 02:21 Alkaline Phosphatase 76 U/L (45-117) 02/15/21 02:21 Triglycerides 39 mg/dL (<150) 02/15/21 02:21 Cholesterol 123 mg/dL (<200) 02/15/21 02:21 HDL Cholesterol 87 mg/dL (40-60) H 02/15/21 02:21 Cholesterol/HDL Ratio 1.41 02/15/21 02:21 Home Medications: ALPRAZolam [Xanax*] 0.5 mg PO BID 02/15/21 Acetaminophen [Tylenol] 325 mg PO BID 02/15/21 Amiodarone HCl [Cordarone*] 200 mg PO DAILY 02/15/21 Atorvastatin Calcium 10 mg PO BEDTIME 02/15/21 Brimonidine/Dorzolamide/Pf [Brimonidine 0.15%-Dorzolam 2%] 10 ml OP DAILY 02/15/21 Buspirone HCl [Buspar*] 5 mg PO TID 02/15/21 Carvedilol [Coreg] 3.125 mg PO BID 02/15/21 Divalproex Sodium [Depakote ER] 625 mg PO BID 02/15/21 Docusate [Colace Cap*] 100 mg PO BID 02/15/21 Doxepin HCl [Sinequan*] 25 mg PO BEDTIME 02/15/21 Furosemide [Lasix*] 40 mg PO DAILY 02/15/21 Gabapentin [Neurontin*] 100 mg PO TID 02/15/21 Insulin Degludec [Tresiba Flextouch U-100] 60 unit SQ DAILY 02/15/21 Levalbuterol HCl [Xopenex] 0.63 mg IH Q8HR 02/15/21 Levothyroxine [Synthroid*] 100 mcg PO [id number] 02/15/21 Lisinopril [Zestril] 20 mg PO DAILY 02/15/21 Magnesium Hydroxide [Milk of Magnesia] 30 ml PO DAILY PRN 02/15/21 Melatonin 12 mg PO BEDTIME 02/15/21 Memantine HCl [Namenda] 10 mg PO BID 02/15/21 Polyethylene Glycol 3350 [Miralax] 17 gm PO DAILY 02/15/21 Potassium Oral Tab [Klor-Con 10 mEq Tab*] 10 meq PO DAILY 02/15/21 Rivaroxaban [Xarelto] 20 mg PO DAILY 02/15/21 Sitagliptin Phosphate [Januvia*] 100 mg PO DAILY 02/15/21 Timolol 0.5% Opth [Timoptic 0.5% Opth*] 1 drops EACH EYE BID 02/15/21 Tramadol HCl [Ultram] 50 mg PO Q6HR PRN MDD 4 tabs 02/15/21 Venlafaxine HCl 75 mg PO DAILY 02/15/21 Zinc 50 mg PO DAILY 02/15/21 cloNIDine HCL [Clonidine HCl] 0.1 mg PO BID 02/15/21 acetaZOLAMIDE [Diamox*] 250 mg PO BID tab 02/16/21 Diet: ADA Activity: Fall precautions Followup: NONE,NONE [Primary Care Provider] - Time spent managing pt's care (in minutes): 38
[2021-02-16] MEDS: DOXEPIN HCL 25 MG CAP PO SCH (20:55)
[2021-02-16] MEDS: MELATONIN 3 MG TABLET PO SCH (20:57)
[2021-02-16] MEDS: ATORVASTATIN 10 MG TAB PO SCH (20:57)
[2021-02-16 21:02] VITALS: BP 136/54
[2021-02-16 22:04] VITALS: TEMP 96.8
[2021-02-16 22:31] VITALS: O2SAT 95
== END 2021-02-16 21:58 | DRG 291 ==
LOC: ER 18:19 → ERHOLD 23:47 → 2ND 02-15 00:34
PROVIDERS: ADMIT Internal Medicine; ATTEND Internal Medicine
PROC: 5A09357 Assistance with Respiratory Ventilation, Less than 24 Consecutive Hours, Continuous Positive Airway Pressure (ICD-10-PCS; principal; 2021-02-14)
DX: I11.0 Hypertensive heart disease with heart failure (principal); J96.02 Acute respiratory failure with hypercapnia; G93.41 Metabolic encephalopathy; J96.01 Acute respiratory failure with hypoxia; J44.1 Chronic obstructive pulmonary disease with (acute) exacerbation; E87.3 Alkalosis; E66.2 Morbid (severe) obesity with alveolar hypoventilation; I50.33 Acute on chronic diastolic (congestive) heart failure; E11.9 Type 2 diabetes mellitus without complications; F31.9 Bipolar disorder, unspecified; E78.5 Hyperlipidemia, unspecified; Z68.37 Body mass index [BMI] 37.0-37.9, adult; Z99.81 Dependence on supplemental oxygen; Z20.822 Contact with and (suspected) exposure to COVID-19
CPT/HCPCS: 36415; 51702; 70450; 71045; 71275; 80048; 80053; 80061; 80076; 81003; 81015; 82805; 82947; 83605; 83735; 83880; 84100; 84132; 84439; 84443; 84484; 85025; 85379; 85610; 87040; 87086; 87088; 93005; 93306; 94640; 94660; 94760; 96374; 99285; J1940; J2930; J3480; Q9967; U0003

== ENCOUNTER 2022-01-25 12:03 | Inpatient (IN) | payer OTHER ==
--- OUTSIDE RECORDS SUMMARY | 2022-01-25 12:07 | XMS REPORT | Continuity of Care Document ---
:1945 Author Organization [facility] t Address [address] [place] [address] Care Team Providers Name Role Phone PCP, DOES NOT HAVE A Primary Care Physician Unavailable Esteban Attending Clinician Unavailable Jayden OVIEDO Attending Clinician Unavailable Jayden Oviedo MD Attending Clinician Dallas Rodriguez MD Attending Clinician [place] RODRIGUEZ Attending Clinician Unavailable Doctor Unassigned, Name Attending Clinician Unavailable Jayden OVIEDO Admitting Clinician Unavailable Payers Payer Name Policy Type Policy Number Effective Date Expiration Date [facility] [id number] MEDICARE PART A \T\ [id number] 2001 B 00:00:00 MEDICAID OF [place] [id number] 2012 00:00:00 Problems Condition Condition Condition Status Onset Resolution Last Treating Co mments Source Name Details Category Date Date Treatment Clinician Date Diabetes Diabetes Disease Active Unive rs mellitus mellitus 8-10 ity of type 2, type 2, 00:00: [place] controlled controlled 00 [place] Branch HLD HLD Disease Active Univers (hyperlipi (hyperlipi 8-10 it y of demia) demia) 00:00: [address] Branch Essential Essential Disease Active Uni vers hypertensi hypertensi 8-10 it y of on[place] benign [place] [facility] Branch Schizoaffe Schizoaffe Disease Active U nivers ctive ctive 8-10 ity of disorder disorder 00:00: [address] Branch Low Low Disease Active Univers testostero testostero 8-10 it y of ne ne 00:00: [place] 00 Medical Branch COPD COPD Disease Active Univers (chronic (chronic 8-10 ity of obstructiv obstructiv [place] Medical pulmonary pulmonary Bran ch disease) disease) CAD CAD Disease Active Univers (coronary (coronary 8-10 ity of artery artery 00:00: [place] disease) disease) 00 Medica l Branch Glaucoma Glaucoma Disease Active Unive rs 8-10 ity of 00:00: [place] 00 Medical Branch Anxiety Anxiety Disease Active Overview: Univ ers state state 8-10 Formattin ity of 00:00: g of this 00 note Medical might be Branch different from the original. 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 Hypothyroi Hypothyroi Disease Active U nivers dism dism 8-10 ity of 00:00: [place] 00 Medical Branch Type 2 Type 2 Problem Active Common diabetes diabetes Spirit mellitus mellitus - [facility] without without St complicati complicati Jade ke on, on, Medical unspecifie unspecifie Ce nter d whether d whether retirement watermaster insulin insulin use use Congestive Congestive Problem Active C ommon heart heart Spirit failure, failure, - CHI unspecifie unspecifie St d HF d HF [facility] chronicity chronicity [place] dical , , [place] unspecifie unspecifie d heart d heart failure failure type type Essential Essential Problem Active Com mon (primary) (primary) Spir it hypertensi hypertensi - CHI on on [facility] Depression Depression Problem Active C ommon with with Spirit anxiety anxiety - CHI [facility] Acquired Acquired Problem Active Commo n hypothyroi hypothyroi Sp leila dism dism - [facility] Bipolar 1 Bipolar 1 Problem Active Com mon disorder, disorder, Spir it depressed, depressed, - CHI full full St remission remission [facility] Hyperlipid Hyperlipid Problem Active C ommon emia, emia, Spirit unspecifie unspecifie - CHI d d St hyperlipid hyperlipid [facility] emia type emia type [facility] Seasonal Seasonal Problem Active Commo n allergies allergies Spir it - CH[facility] Chronic Chronic Problem Active Common obstructiv obstructiv Sp leila e e - CHI pulmonary pulmonary St disease, disease, [facility] unspecifie unspecifie Me dical d COPD d COPD Center type type Type 2 Type 2 Problem Active Common diabetes diabetes Spirit mellitus mellitus - [facility] with foot with foot St ulcer ulcer [facility] Non-pressu Non-pressu Problem Active C ommon re chronic re chronic Sp leila ulcer of ulcer of - CHI other part other part St of right of right [facility] foot with foot with Medi magda other other Center specified specified severity severity Recurrent Recurrent Problem Active Com mon falls falls Spirit while while - CHI walking walking [facility] Chronic Chronic Problem Active Common kidney kidney Spirit disease, disease, - CHI unspecifie unspecifie St d CKD d CKD [facility] stage stage [facility] Hypocalcem Hypocalcem Problem Active C ommon ia ia Spirit [facility] Generalize Generalize Problem Active C ommon d muscle d muscle Spirit weakness weakness [facility] Generalize Generalize Problem Active C ommon d weakness d weakness Sp leila - [facility] 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 [facility] Allergies, Adverse Reactions, Alerts Allergy Allergy Status Severity Reaction(s) Onset Inactive Treating Comm ents Source Name Type Date Date Clinician CODEINE DRUG Active Unknown-Cmnt Uni vers INGREDI 05-14 ity of 00:00: [place] 00 Medical Branch Codeine Propensi Active Unknown - Univ ers ty to See comments 05-14 ity of adverse 00:00: [place] reaction Medical s Branch codeine Adverse Active Info Not Common Reaction Available Spiri t [facility] Social History Social Habit Start Date Stop Date Quantity Comments Source History [facility] University o f Alcohol Frequency [facility] edical Branch History [facility] University o f Alcohol Std [place] Medical Drinks Branch History [facility] University o f Alcohol Binge [place] Medic al Branch History of Chews Tobacco University of tobacco use [facility] Exposure to 2021-12-31 2022-01-10 Not sure University of SARS-CoV-2 00:00:00 08:40:00 [facility] (event) Branch Alcohol intake 2012-12-31 2012-12-31 Current University of 00:00:00 00:00:00 non-drinker of [facility] alcohol Branch (finding) Alcohol Comment 2011-06-28 2011-06-28 quit alcohol Univers ity of 00:00:00 00:00:00 [facility] Tobacco use and 2011-06-28 2011-06-28 Current user Univers ity of exposure 00:00:00 00:00:00 [facility] Sex [birth year] Universit y of 00:00:00 00:00:00 [facility] Smoking Status Start Date Stop Date Source Former smoker 2011-06-28 00:00:00 2011-06-28 00:00:[address] [facility] [place] [facility] Medications Ordered Filled Start Stop Current Ordering Indication Dosage Frequency Signature Comments Components Source Medication Medication Date Date Medication? Clinician (SIG) Name Name Carvedilol Carvedilol Yes Jenna 1 tablet Common 9-26 [place] Spirit 00:00: - [facility]I 00 [facility] Glucometer Glucometer Yes Jenna one strip Common test strips test strips 9-16 [place] using the Spirit 00:00: [facility] Metric glucometer [facility] Albuterol Albuterol 2017-09 Yes Jenna 3 ml as Common Sulfate Sulfate 2-18 [place] needed Sp leila 00:00: - [facility]I 00 [facility] multivitami 2012-09 Yes 1{tbl} Take 1 Tab Univers n (TAB A 1-22 by mouth ity of THIAGO) 09:36: daily. [place] tablet 18 Medical Branch traZODONE 2012-09 Yes 50mg Take 50 mg Un jewels (DESYREL) 1-22 by mouth ity of 50 mg 09:36: at [place] tablet 18 bedtime. Medical Branch magnesium 2012-09 Yes 30mL Take 30 mL Un jewels hydroxide 1-22 by mouth ity of (MILK OF 09:36: daily. [place] MAGNESIA) 18 Medical 400 mg/5 mL Branch suspension insulin 2012-09 Yes 13U inject 13 Unive rs glargine 1-22 Units ity of (LANTUS) 09:36: under the [facility] s 100 unit/mL 18 skin at Medic al injection bedtime. Branch venlafaxine 2012-09 Yes 150mg Take 150 U nivers XR (EFFEXOR 1-22 mg by ity of XR) 150 mg 09:36: mouth [place] 24 hr 18 daily with Medical capsule breakfast. Branch brimonidine 2012-09 Yes 1[drp] Place 1 U nivers (ALPHAGAN) 1-22 Drop in ity of 0.2 % 09:36: both eyes [place] ophthalmic 2 (two) Medica l solution times Branch daily. lisinopril 2012-09 Yes 20mg Take 20 mg U nivers (PRINIVIL,Z -22 by mouth ity of ESTRIL) 20 09:36: daily. [place] mg tablet 18 Medical Branch SENNOSIDES 2012-09 Yes Take by Uni vers (SENOKOT - mouth. ity of ORAL) 09:36: Indication [place] [address] s: take 2 Medical tabs by Branch mouth at bedtime amLODIPine 2012-09 Yes 10mg Take 10 mg U nivers (NORVASC) 09-22 by mouth ity of 10 mg 09:36: daily. [place] tablet 18 Medical Branch latanoprost 2012-09 Yes 1[drp] 1 Drop Un jewels (XALATAN) 09-22 every ity of 0.005 % 09:36: evening. [place] ophthalmic Medical drops Branch risperidone 2012-09 Yes 4mg Take 4 mg U nivers (RISPERDAL) 09-22 by mouth ity of 3 mg tablet 09:36: at [place] [address] bedtime. Medical Branch acetaminoph 2012-09 Yes Take by Un jewels en (MAPAP) 09-22 mouth ity of 325 mg 09:36: every 4 [place] tablet 18 (four) Medical hours as Branch needed. ALPRAZolam 2012-09 Yes .5mg Take 0.5 Uni vers (XANAX) 0.5 1-22 mg by ity of mg tablet 09:36: mouth 2 [place] 18 (two) Medical times Branch daily. Also takes one at bedtime multivitami 2012-09 Yes 1{tbl} Take 1 Tab Univers n (TAB A -22 by mouth ity of THIAGO) 09:36: daily. [place] tablet 18 Medical Branch traZODONE 2012-09 Yes 50mg Take 50 mg Un jewels (DESYREL) 22 by mouth ity of 50 mg 09:36: at [place] tablet 18 bedtime. Medical Branch magnesium 2012-09 Yes 30mL Take 30 mL Un jewels hydroxide -22 by mouth ity of (MILK OF 09:36: daily. [place] MAGNESIA) Medical 400 mg/5 mL Branch suspension insulin 2012-09 Yes 13U inject 13 Unive rs glargine 1-22 Units ity of (LANTUS) 09:36: [place] the [place] 100 unit/mL 18 skin at Medic al injection bedtime. Branch venlafaxine 2012-09 Yes 150mg Take 150 U nivers XR (EFFEXOR 1-22 mg by ity of XR) 150 mg 09:36: mouth [place] 24 hr 18 daily with Medical capsule breakfast. Branch brimonidine 2012-09 Yes 1[drp] Place 1 U nivers (ALPHAGAN) 1-22 Drop in ity of 0.2 % 09:36: both eyes [place] ophthalmic 2 (two) Medica l solution times Branch daily. lisinopril 2012-09 Yes 20mg Take 20 mg U nivers (PRINIVIL,Z 1-22 by mouth ity of ESTRIL) 20 09:36: daily. [place] mg tablet 18 Medical Branch SENNOSIDES 2012-09 Yes Take by Uni vers (SENOKOT 1-22 mouth. ity of ORAL) 09:36: Indication [place] 18 s: take 2 Medical tabs by Branch mouth at bedtime amLODIPine 2012-09 Yes 10mg Take 10 mg U nivers (NORVASC) -22 by mouth ity of 10 mg 09:36: daily. [place] tablet Medical Branch latanoprost 2012-09 Yes 1[drp] 1 Drop Un jewels (XALATAN) -22 every ity of 0.005 % 09:36: evening. [place] ophthalmic Medical drops Branch risperidone 2012-09 Yes 4mg Take 4 mg U nivers (RISPERDAL) -22 by mouth ity of 3 mg tablet 09:36: at [place] [address] bedtime. Medical Branch acetaminoph 2012-09 Yes Take by Un jewels en (MAPAP) 1-22 mouth ity of 325 mg 09:36: every 4 [place] tablet 18 (four) Medical hours as Branch needed. ALPRAZolam 2012-09 Yes .5mg Take 0.5 Uni vers (XANAX) 0.5 1-22 mg by ity of mg tablet 09:36: mouth 2 [place] 18 (two) Medical times Branch daily. Also takes one at bedtime multivitami 2012-09 Yes 1{tbl} Take 1 Tab Univers n (TAB A 1-22 by mouth ity of THIAGO) 09:36: daily. [place] tablet 18 Medical Branch traZODONE 2012-09 Yes 50mg Take 50 mg Un jewels (DESYREL) -22 by mouth ity of 50 mg 09:36: at [place] tablet 18 bedtime. Medical Branch magnesium 2012-09 Yes 30mL Take 30 mL Un jewels hydroxide -22 by mouth ity of (MILK OF 09:36: daily. [place] MAGNESIA) 18 Medical 400 mg/5 mL Branch suspension insulin 2012-09 Yes 13U inject 13 Unive rs glargine 1-22 Units ity of (LANTUS) 09:36: [place] the [place] 100 unit/mL 18 skin at Medic al injection bedtime. Branch venlafaxine 2012-09 Yes 150mg Take 150 U nivers XR (EFFEXOR 1-22 mg by ity of XR) 150 mg 09:36: mouth [place] 24 hr 18 daily with Medical capsule breakfast. Branch brimonidine 2012-09 Yes 1[drp] Place 1 U nivers (ALPHAGAN) -22 Drop in ity of 0.2 % 09:36: both eyes [place] ophthalmic 2 (two) Medica l solution times [place] daily. lisinopril 2012-09 Yes 20mg Take 20 mg U nivers (PRINIVIL,Z 22 by mouth ity of ESTRIL) 20 09:36: daily. [place] mg tablet 18 Medical Branch SENNOSIDES 2012-09 Yes Take by Uni vers (SENOKOT 1-22 mouth. ity of ORAL) 09:36: Indication [place] 18 s: take 2 Medical tabs by Branch mouth at bedtime amLODIPine 2012-09 Yes 10mg Take 10 mg U nivers (NORVASC) 22 by mouth ity of 10 mg 09:36: daily. [place] tablet 18 Medical Branch latanoprost 2012-09 Yes 1[drp] 1 Drop Un jewels (XALATAN) 1-22 every ity of 0.005 % 09:36: evening. [place] ophthalmic 18 Medical drops Branch risperidone 2012-09 Yes 4mg Take 4 mg U nivers (RISPERDAL) -22 by mouth ity of 3 mg tablet 09:36: at [place] 18 bedtime. Medical Branch acetaminoph 2012-09 Yes Take by Un jewels en (MAPAP) -22 mouth ity of 325 mg 09:36: every 4 [place] tablet 18 (four) Medical hours as Branch needed. ALPRAZolam 2012-09 Yes .5mg Take 0.5 Uni vers (XANAX) 0.5 1-22 mg by ity of mg tablet 09:36: mouth 2 [place] 18 (two) Medical times Branch daily. Also takes one at bedtime multivitami 2012-09 Yes 1{tbl} Take 1 Tab Univers n (TAB A 1-22 by mouth ity of THIAGO) 09:36: daily. [place] tablet 18 Medical Branch traZODONE 2012-09 Yes 50mg Take 50 mg Un jewels (DESYREL) -22 by mouth ity of 50 mg 09:36: at [place] tablet 18 bedtime. Medical Branch magnesium 2012-09 Yes 30mL Take 30 mL Un jewels hydroxide -22 by mouth ity of (MILK OF 09:36: daily. [place] MAGNESIA) 18 Medical 400 mg/5 mL [place] suspension insulin 2012-09 Yes 13U inject 13 Unive rs glargine 1-22 Units ity of (LANTUS) 09:36: [facility] unit/mL 18 skin at Medic al injection bedtime. Branch venlafaxine 2012-09 Yes 150mg Take 150 U nivers XR (EFFEXOR 1-22 mg by ity of XR) 150 mg 09:36: mouth [place] 24 hr 18 daily with Medical capsule breakfast. Branch brimonidine 2012-09 Yes 1[drp] Place 1 U nivers (ALPHAGAN) 1-22 Drop in ity of 0.2 % 09:36: both eyes [place] ophthalmic 2 (two) Medica l solution times [place] daily. lisinopril 2012-09 Yes 20mg Take 20 mg U nivers (PRINIVIL,Z 1-22 by mouth ity of ESTRIL) 20 09:36: daily. [place] mg tablet 18 Medical Branch SENNOSIDES 2012-09 Yes Take by Uni vers (SENOKOT 1-22 mouth. ity of ORAL) 09:36: Indication [place] 18 s: take 2 Medical tabs by Branch mouth at bedtime amLODIPine 2012-09 Yes 10mg Take 10 mg U nivers (NORVASC) 1-22 by mouth ity of 10 mg 09:36: daily. [place] tablet 18 Medical Branch latanoprost 2012-09 Yes 1[drp] 1 Drop Un jewels (XALATAN) 1-22 every ity of 0.005 % 09:36: evening. [place] ophthalmic 18 Medical drops Branch risperidone 2012-09 Yes 4mg Take 4 mg U nivers (RISPERDAL) 1-22 by mouth ity of 3 mg tablet 09:36: at [place] 18 bedtime. Medical Branch acetaminoph 2012-09 Yes Take by Un jewels en (MAPAP) 1-22 mouth ity of 325 mg 09:36: every 4 [place] tablet 18 (four) Medical hours as Branch needed. ALPRAZolam 2012-09 Yes .5mg Take 0.5 Uni vers (XANAX) 0.5 1-22 mg by ity of mg tablet 09:36: mouth 2 [place] 18 (two) Medical times Branch daily. Also takes one at bedtime Levothyroxi 2012-09 Yes Take by Un jewels ne 1-22 mouth ity of (TIROSINT) 09:36: daily. [address] Cap Medical Branch amiodarone 2012-09 Yes 200mg Take 200 Un jewels (CORDARONE) 1-22 mg by ity of 200 mg 09:36: mouth [place] tablet 17 daily. Medical Branch Levothyroxi 2012-09 Yes Take by Un jewels ne 1-22 mouth ity of (TIROSINT) 09:36: daily. [place] [address] mcg Cap Medical Branch amiodarone 2012-09 Yes 200mg Take 200 Un jewels (CORDARONE) 1-22 mg by ity of 200 mg 09:36: mouth [place] tablet 17 daily. Medical Branch Levothyroxi 2012-09 Yes Take by Un jewels ne 1-22 mouth ity of (TIROSINT) 09:36: daily. [place] 25 mcg Cap Medical Branch amiodarone 2012-09 Yes 200mg Take 200 Un jewels (CORDARONE) 1-22 mg by ity of 200 mg 09:36: mouth [place] tablet 17 daily. Medical Branch Levothyroxi 2012-09 Yes Take by Un jewels ne 1-22 mouth ity of (TIROSINT) 09:36: daily. [place] 25 mcg Cap Medical Branch amiodarone 2012-09 Yes 200mg Take 200 Un jewels (CORDARONE) 1-22 mg by ity of 200 mg 09:36: mouth [place] tablet 17 daily. Medical Branch timolol Yes Univers (TIMOPTIC) 8-01 ity of 0.5 % 00:00: [place] ophthalmic 00 Medical solution Branch metoprolol Yes Univers tartrate 8-01 ity of (LOPRESSOR) 00:00: [place] 25 mg 00 Medical tablet Branch timolol Yes Univers (TIMOPTIC) 8-01 ity of 0.5 % 00:00: [place] ophthalmic 00 Medical solution Branch metoprolol Yes Univers tartrate 8-01 ity of (LOPRESSOR) 00:00: [place] 25 mg 00 Medical tablet Branch timolol Yes Univers (TIMOPTIC) 8-01 ity of 0.5 % 00:00: [place] ophthalmic 00 Medical solution Branch metoprolol Yes Univers tartrate 8-01 ity of (LOPRESSOR) 00:00: [place] 25 mg 00 Medical tablet Branch timolol Yes Univers (TIMOPTIC) 8- ity of 0.5 % 00:00: [place] ophthalmic 00 Medical solution Branch metoprolol Yes Univers tartrate 8- ity of (LOPRESSOR) 00:00: [place] 25 mg 00 Medical tablet Branch testosteron Yes 100mg 0.5 mL by Univers e cypionate 7-19 Intramuscu it y of (DEPO-TESTO 00:00: lar route [place] STERONE) 00 every 2 Medical 200 mg/mL (two) Branch injection weeks. furosemide Yes Univers (LASIX) 20 7-19 ity of mg tablet 00:00: Medical Branch testosteron Yes 100mg 0.5 mL by Univers e cypionate 7-19 Intramuscu it y of (DEPO-TESTO 00:00: [place] route [place] STERONE) 00 every 2 Medical 200 mg/mL (two) Branch injection weeks. furosemide Yes Univers (LASIX) 20 7-19 ity of mg tablet 00:00: Medical Branch testosteron Yes 100mg 0.5 mL by Univers e cypionate 7-19 Intramuscu it y of (DEPO-TESTO 00:00: lar route [place] STERONE) 00 every 2 Medical 200 mg/mL (two) Branch injection weeks. furosemide Yes Univers (LASIX) 20 7-19 ity of mg tablet 00:00: Medical Branch testosteron Yes 100mg 0.5 mL by Univers e cypionate 03-19 Intramuscu it y of (DEPO-TESTO 00:00: lar route [place] STERONE) 00 every 2 Medical 200 mg/mL (two) Branch injection weeks. furosemide Yes Univers (LASIX) 20 03-19 ity of mg tablet 00:00: Medical Branch HUMALOG 100 Yes Univer s unit/mL 03-02 ity of injection 00:00: Medical Branch HUMALOG 100 Yes Univer s unit/mL 03-02 ity of injection 00:00: Medical Branch HUMALOG 100 Yes Univer s unit/mL 03-02 ity of injection 00:00: Medical Branch HUMALOG 100 Yes Univer s unit/mL 03-02 ity of injection 00:00: Medical Branch BACLOFEN Yes 5mg Take 5 mg Univ ers ORAL 4-04 by mouth 2 ity of 00:00: (two) [place] 00 times Medical daily. Branch EC ASPIRIN Yes 81mg Take 81 mg U nivers ORAL 4-04 by mouth ity of 00:00: daily. Medical Branch BACLOFEN Yes 5mg Take 5 mg Univ ers ORAL 4-04 by mouth 2 ity of 00:00: (two) [place] 00 times Medical daily. Branch EC ASPIRIN Yes 81mg Take 81 mg U nivers ORAL 4-04 by mouth ity of 00:00: daily. Medical Branch BACLOFEN Yes 5mg Take 5 mg Univ ers ORAL 4-04 by mouth 2 ity of 00:00: (two) [place] 00 times Medical daily. Branch EC ASPIRIN Yes 81mg Take 81 mg U nivers ORAL 4-04 by mouth ity of 00:00: daily. Medical Branch BACLOFEN Yes 5mg Take 5 mg Univ ers ORAL 4-04 by mouth 2 ity of 00:00: (two) [place] 00 times Medical daily. Branch EC ASPIRIN Yes 81mg Take 81 mg U nivers ORAL 4-04 by mouth ity of 00:00: daily. Medical Branch Lasix Lasix Yes Jenna 40 MG PO Common [place] DAILY Spirit - [facility] Tresiba Tresiba Yes Jenna 70 units Comm on FlexTouch FlexTouch [facility] Amiodarone Amiodarone Yes Jenna TAKE 1 Common HCl HCl [place] TABLET BY Spiri t MOUTH - CHI EVERY DAY. [facility] Risperidone Risperidone Yes Jenna TAKE 3 Common [place] TABLETS BY Spir it MOUTH ONCE - CHI A DAY. [facility] Symbicort Symbicort Yes Jenna inhale 2 Common [place] puffs po Spirit bid. - [facility] Amlodipine Amlodipine Yes Jenna TAKE 1 Common Besylate Besylate [place] TABLET BY Spirit MOUTH - CHI DAILY [facility] Lisinopril Lisinopril Yes Jenna 1 tablet Common [facility] Aspirin Aspirin Yes Jenna 1 tablet Comm on [place] Betaxolol Betaxolol Yes Jenna 1 drop Co mmon HCl HCl Millender into Spirit affected - CHI eye [facility] Lisinopril Lisinopril Yes Jenna 1 tablet Common [facility] Clonidine Clonidine Yes Jenna TAKE 1 Co mmon HCl HCl [place] TABLET BY Spiri t MOUTH - CH[facility] TWICE [facility] Atorvastati Atorvastati Yes Jenna TAKE 1 Common n Calcium n Calcium [place] TABLET BY Spirit MOUTH - CHI EVERY St NIGHT AT [facility] Gaby Griffin Yes Jenna TAKE 1 Common [place] TABLET BY Spiri t MOUTH - CHI DAILY [facility] Venlafaxine Venlafaxine Yes Jenna 1 capsule Common HCl ER HCl ER [place] with food S pirit [facility] Latanoprost Latanoprost Yes Jenna INT 1 GTT Common [place] IN OU QHS. Spir it - [facility] Trazodone Trazodone Yes Jenna TK 1 T PO Common HCl HCl [place] QHS. Spirit - [facility] BusPIRone BusPIRone Yes Jenna 1 tablet Common HCl HCl [facility] Levothyroxi Levothyroxi Yes Jenna 1 tablet Common ne Sodium ne Sodium [place]ender on an Spirit empty - CHI stomach in [facility] Venlafaxine Venlafaxine Yes Jenna TAKE 1 Common HCl HCl [place] TABLET BY Spiri t MOUTH - [facility] Furosemide Furosemide Yes Jenna 1 tablet Common [facility] BD Pen BD Pen Yes Jenna INJECT Common Needle Disha Needle Disha [place] USING Spirit U/F U/F INSULIN D. [facility] Divalproex Divalproex Yes Jenna as Co mmon Sodium ER Sodium ER [place] directed [facility] Vitamin C Vitamin C Yes Jenna 1 tablet Common [facility] Docusate Docusate Yes Jenna 2 capsule C ommon Sodium Sodium [place] as needed S pirit [facility] Xarelto Xarelto Yes Jenna 20 MG PO Comm on [place] DAILY [facility] Baclofen Baclofen Yes Jenna TK 1 T PO C ommon Millender Q 8 H PRN. Spir it [facility] Procedures Procedure Date / Time Performed Performing Clinician Sour e CT LUMBAR SPINE WO 2022-01-14 14:48:02 Andrew Oviedo [facility] CONSENT/REFUSAL FOR 2022-01-14 14:08:22 Doctor Unassigned, No [facility] DIAGNOSIS AND [facility] Medical [place] TREATMENT ASSIGNMENT OF BENEFITS 2022-01-14 14:07:33 Doctor Unassigned, No [facility] XR BONE SURVEY LTD 2021-12-28 15:13:00 Jj Rodriguez [facility] ASSIGNMENT OF BENEFITS 2021-12-28 13:11:23 Doctor Unassigned, No [facility] Encounters Start End Encounter Admission Attending Care Care Encounter Source Date/Time Date/Time Type Type Clinicians Facility Department ID 2021-11-30 Outpatient [facility] [id number] [place] 15:40:57 [id number] [facility] 2021-11-28 Outpatient [facility] [id number] [place] 14:03:42 [id number] [facility] 2021-09-26 Outpatient [place], STLMLC [facility] [id number] 10:59:02 Jenna [id number] [facility] 2022-01-14 2022-01-14 [facility] [id number] Univers 09:07:59 23:59:00 ANDREW ity of [facility] 2022-01-14 2022-01-14 [facility] [id number] Univers 09:07:59 23:59:00 Encounter Andrew Carpenter [place] [id number] ity of [place] [id number] [facility] [id number] [facility] 801 Branch 2022-01-14 2022-01-14 [facility] [id number] Univers 00:00:00 00:00:00 ANDREW [id number] ity of [facility] 2021-12-28 2021-12-28 [facility] [id number] Univers 09:51:42 23:59:00 Encounter Jj ROBIN [id number] ity of [place] [id number] [facility] [id number] [facility] [address] 2021-12-28 2021-12-28 [facility] [id number] Univers 09:55:00 09:55:00 JJ [id number] ity [facility] 2021-12-28 2021-12-28 [facility] [id number] Univers 08:13:17 09:50:00 Encounter Andrew NEVAREZNASIMA [id number] ity of [place] [id number] [facility] [id number] [facility] [address] 2021-12-28 2021-12-28 Outpatient R [facility] [id number] Univers 00:00:00 09:50:00 ANDREW ity [facility] 2021-12-28 2021-12-28 Orders Doctor HOPE [id number] Univers 00:00:00 00:00:00 Only Unassigned, FIDE [id number] [facility] [id number] [place] as [id number] [place] [address] [address] 2019-09-23 2019-09-23 [facility] [id number] Common 15:09:00 15:09:[address] [facility] 2019-09-09 2019-09-09 [facility] [id number] Common 11:30:00 11:30:[address] [facility] 2019-08-05 2019-08-05 [facility] [id number] Common 14:57:00 14:57:[address] [facility] 2019-08-02 2019-08-02 [facility] [id number] Common 14:24:00 14:24:[address] [facility] 2019-07-26 2019-07-26 [facility] [place] [id number] Common 13:14:00 13:14:[address] [facility] 2019-07-20 2019-07-20 [facility] [id number] Common 09:08:00 09:08:[address] [facility] 2019-07-14 2019-07-14 [facility] [id number] Common 15:20:00 15:20:[address] [facility] 2019-06-24 2019-06-24 [facility] [id number] Common 11:00:00 11:00:[address] [facility] 2019-06-01 2019-06-01 [facility] [place] [id number] Common 12:18:00 12:18:[address] [place] [address] [facility] 2019-05-31 2019-05-31 [facility] [place] [id number] Common 14:36:00 14:36:[address] [facility] 2019-05-27 2019-05-27 [facility] [id number] Common 10:30:00 10:30:[address] [facility] 2019-04-12 2019-04-12 [facility] [id number] Common 14:45:00 14:45:[address] [facility] 2019-03-22 2019-03-22 [facility] [id number] Common 10:30:00 10:30:[address] [facility] 2019-03-08 2019-03-08 [facility] [id number] Common 14:45:00 14:45:[address] [facility] 2019-03-02 2019-03-02 [facility] [id number] Common 10:30:00 10:30:[address] [facility] 2018-12-28 2018-12-28 [facility] [id number] Common 15:15:00 15:15:[address] [facility] 2018-12-10 2018-12-10 [facility] [id number] Common 14:52:00 14:52:[address] [facility] 2018-11-19 2018-11-19 [facility] [id number] Common 11:30:00 11:30:[address] [facility] 2018-10-22 2018-10-22 [facility] [id number] Common 11:45:00 11:45:[address] [facility] 2018-09-18 2018-09-18 [facility] [id number] Common 11:48:00 11:48:[address] [facility] 2018-09-16 2018-09-16 [facility] [id number] Common 15:42:00 15:42:00 t [facility] it [facility] Results This patient has no known results.
[2022-01-25] MEDS ORDERED: LEVALBUTEROL 1.25 MG/3 ML NEB ONE (12:32)
[2022-01-25] MEDS ORDERED: NA CHLORIDE 0.9% 500 ML ONE (12:32)
[2022-01-25 12:53] LABS: Urine Blood Negative (Negative); Urine Glucose Negative (Negative); Urine Protein 2+ (Negative)
[2022-01-25 12:57] LABS: Absolute Lymphocytes (CBC) 0.9 K/uL (0.7-4.9); Lymphocytes % 15.6 % (15.3-44.8); MPV 9.4 fL (7.6-11.3); RBC Red Blood Cell Count 3.19 M/uL (4.33-5.43)
[2022-01-25 13:02] LABS: Blood Gas Oxyhemoglobin 93.1 % (94-97); Blood O2 Saturation 96.1 % (92-98.5)
[2022-01-25 13:06] LABS: Protime INR 1.2
[2022-01-25 13:19] LABS: AST/SGOT 8 U/L (15-37); Albumin 2.5 g/dL (3.4-5.0); Alkaline Phosphatase 90 U/L (45-117); BUN Blood Urea Nitrogen 27 mg/dL (7-18); Bicarbonate 35 mmol/L (21-32); Bilirubin Total 0.3 mg/dL (0.2-1.0); Glomerular Filtration Rate 59 ml/min (=/>90); Glucose Level 130 mg/dL (74-106); NT PRO-BNP 5348 pg/mL (<450); Protein, Total 5.9 g/dL (6.4-8.2); Sodium Level 138 mmol/L (136-145)
[2022-01-25 13:21] LABS: ALT/SGPT < 10 U/L (12-78)
--- NOTE | 2022-01-25 13:36 | RAD REPORT ---
EXAM DESCRIPTION: RAD - Chest Single View - 01/25/2022 1:28 pm CLINICAL HISTORY: COPD, high CO 2 levels COMPARISON: Chest Single View dated 02/14/2021; Chest Single View dated 04/16/2020; Chest Single View dated 03/28/2020; Chest Single View dated 03/24/2020 FINDINGS: Lines: None. Lungs: Ill-defined bilateral hazy opacities similar to 02/14/21. Pleural: No significant pleural effusions or pneumothorax. Cardiac: Cardiomegaly. Bones: No acute fractures. Other: IMPRESSION: Bilateral interstitial and airspace disease similar to 02/14/2021. This could represent multifocal pneumonia and/or edema.
[2022-01-25 13:37] LABS: Urine Bacteria NONE SEEN /HPF (NONE SEEN); Urine RBC NONE SEEN /HPF (NONE SEEN)
--- NOTE | 2022-01-25 13:45 | ER ---
Nurse's Notes [facility] Name: Michael Duncan Age: 76 yrs Sex: Male : 1945 Arrival Date: 01/25/2022 Time: 12:10 Bed 16 Private MD: Diagnosis: Respiratory failure, unspecified with hypercapnia;COPD/ Chronic obstructive pulmonary disease, unspecified;Altered mental status, unspecified Presentation: 01/25 12:12 Chief complaint: EMS states: N/H called for generalized weakness and not acting him jh6 self. Pt a\T\ox3 without sob or chest pain. states that he has had weakness over the last three days but no fever. Coronavirus screen: Client denies travel out of the [place] in the last 14 days. Client indicates they have traveled out of the [place] in the last 14 days. Ebola Screen: Patient negative for fever greater than or equal to 101.5 degrees Fahrenheit, and additional compatible Ebola Virus Disease symptoms Patient denies exposure to infectious person. Patient denies travel to an Ebola-affected area in the 21 days before illness onset. Initial Sepsis Screen: Does the patient meet any 2 criteria? Systolic BP < 90 mmHg. Mean Arterial Pressure (MAP) < 65. HR > 90 bpm. Yes Does the patient have a suspected source of infection? No. Patient's initial sepsis screen is negative. Risk Assessment: Do you want to hurt yourself or someone else? Patient reports no desire to harm self or others. Onset of symptoms was January 25, 2022. 12:12 Method Of Arrival: EMS: [place] [id number] 12:12 Acuity: SHAZIA 3 [facility] Triage Assessment: 12:15 General: Appears in no apparent distress. Behavior is calm, cooperative. Pain: Denies [facility] pain. Historical: - Allergies: 12:14 caffiene; 6 12:14 Codeine; jh6 - PMHx: 12:14 Bipolar disorder; Hypertension; Hyperlipidemia; Diabetes - NIDDM; COPD; CHF; Dementia; jh6 Depression; High Cholesterol; - Immunization history:: Adult Immunizations up to date, Client reports receiving the 2nd dose of the Covid vaccine. - Social history:: Smoking status: Patient reports use of chewing tobacco. - Family history:: not pertinent. - Hospitalizations: : No recent hospitalization is reported. Screenin:15 Abuse screen: Denies threats or abuse. Denies injuries from another. Nutritional 6 screening: No deficits noted. Tuberculosis screening: No symptoms or risk factors identified. Fall Risk Secondary diagnosis (15 points) impaired mobility, IV access (20 points). Ambulatory Aid- None/Bed Rest/Nurse Assist (0 pts). Assessment: 12:15 General: see triage note. . 6 13:27 General: pt placed on bi-pap after ABG results. pt tolerating well . [facility] 19:30 Reassessment: Patient appears in no apparent distress at this time. Patient is alert, ke1 oriented x 3, equal unlabored respirations, skin warm/dry/pink. 20:39 Reassessment: Report called and given to Karina SOLITARIO. ke1 Vital Signs: 12:10 BP 116 / 101; Pulse 104; Resp 20; Temp 97.7; Pulse Ox 92% on R/A; Weight 122.47 kg (R); mb7 Height 6 ft. 1 in. (185.42 cm) (R); Pain 0/10; 13:29 BP 109 / 77; Pulse 96; Resp 22; Pulse Ox 98% ; Pain 0/10; jh6 20:02 BP 113 / 78; Pulse 106; Resp 20; Temp 98.2; Pulse Ox 100% on BiPAP; Pain 0/10; ke1 12:10 Body Mass Index 35.62 (122.47 kg, 185.42 cm) mb7 ED Course: 12:10 Patient arrived in ED. rn 12:10 Sam Arguelles MD is Attending Physician. rn 12:11 Patient has correct armband on for positive identification. Placed in gown. Bed in low mb7 position. Call light in reach. Side rails up X 1. Door closed. Noise minimized. Warm blanket given. 12:12 Opal Sen, ALTAF is Primary Nurse. 6 12:14 Triage completed. 6 12:30 Patient placed in the treatment room, on a stretcher, on oxygen, on health inspector food, on 6 pulse oximetry. 13:06 Chest Single View XRAY Sent. 6 13:30 Chest Single View XRAY In Process Unspecified. EDMS 13:43 Amber Alford MD is Hospitalizing Provider. rn 14:39 Kris Arguelles MD is Hospitalizing Provider. rn 20:04 No provider procedures requiring assistance completed. Patient admitted, IV remains in ke1 place. Administered Medications: 12:50 Drug: Xopenex (levalbuterol) 1.25 mg Route: Inhalation; [facility] 12:50 Drug: NS 0.9% 500 ml Route: IV; Rate: bolus; Site: left hand; [facility] 15:50 Drug: Rocephin (cefTRIAXone) 1 grams Route: IV; Rate: calculated rate; Site: left hand; [facility] 15:50 Drug: AZITHromycin 500 mg Route: IVPB; Infused Over: 1 hrs; Site: left hand; [facility] Outcome: 13:44 Decision to Hospitalize by Provider. rn 20:04 Admitted to Med/surg [facility] 20:04 Condition: stable 20:04 Instructed on the need for admit. 21:07 Patient left the ED. [facility] Signatures: Dispatcher [employer] EDMS Sam Arguelles MD MD rn Hastedt, Jennifer, RN RN [facility] Maria Elena Mendez 7 Margie Wade RN RN [facility]
--- NOTE | 2022-01-25 13:45 | EDPHYS ---
Physician Documentation [facility] Name: Michael Duncan Age: 76 yrs Sex: Male : 1945 Arrival Date: 01/25/2022 Time: 12:10 Bed 16 Private MD: ED Physician Sam Arguelles HPI: 01/25 13:33 This 76 yrs old Male presents to ER via EMS with complaints of AMS. rn 13:33 The patient presents with decreased mental status. Onset: The symptoms/episode rn began/occurred 3 day(s) ago. Possible causes: unknown. Associated signs and symptoms: Pertinent positives: confusion, weakness, Pertinent negatives: abdominal pain, chest pain, headache, seizure, shortness of breath. Current symptoms: In the emergency department the patient's symptoms are unchanged from the initial presentation. The patient has experienced similar episodes in the past. It is unknown whether or not the patient has recently seen a physician. EMS reports longterm called for AMS, decreased responsiveness, for 3 days now has reported generalized weakness. NO fever. No SOB. Reports still using chewing tobacco. No abd pain/vomiting/diarrhea. . EMS reports ETCO2 high.. Historical: - Allergies: 12:14 caffiene; jh6 12:14 Codeine; jh6 - PMHx: 12:14 Bipolar disorder; Hypertension; Hyperlipidemia; Diabetes - NIDDM; COPD; CHF; Dementia; jh6 Depression; High Cholesterol; - Immunization history:: Adult Immunizations up to date, Client reports receiving the 2nd dose of the Covid vaccine. - Social history:: Smoking status: Patient reports use of chewing tobacco. - Family history:: not pertinent. - Hospitalizations: : No recent hospitalization is reported. ROS: 13:37 Constitutional: Negative for fever, chills, and weight loss, Eyes: Negative for injury, rn pain, redness, and discharge, Neck: Negative for injury, pain, and swelling, Cardiovascular: Negative for chest pain, palpitations, and edema, Respiratory: Negative for shortness of breath, cough, wheezing, and pleuritic chest pain, Abdomen/GI: Negative for abdominal pain, nausea, vomiting, diarrhea, and constipation, Back: Negative for injury and pain, MS/Extremity: Negative for injury and deformity, Skin: Negative for injury, rash, and discoloration, Neuro: Negative for headache, numbness, tingling, and seizure. Exam: 13:37 Constitutional: This is a well developed, well nourished patient who is awake, rn somnolent, answers to voice Head/Face: Normocephalic, atraumatic. Eyes: Periorbital areas with no swelling, redness, or edema. Cardiovascular: Regular rate and rhythm. No pulse deficits. Respiratory: + Mild tachypnea, faint wheezing bilaterally Abdomen/GI: soft, non-tender Skin: Warm, dry MS/ Extremity: Pulses equal, no cyanosis. Neuro: Awake, somnolent, GCS 15, oriented to person, place, time, and situation. Cranial nerves II-XII grossly intact. Motor strength 4/5 in all extremities. Sensory grossly intact. Vital Signs: 12:10 BP 116 / 101; Pulse 104; Resp 20; Temp 97.7; Pulse Ox 92% on R/A; Weight 122.47 kg (R); mb7 Height 6 ft. 1 in. (185.42 cm) (R); Pain 0/10; 13:29 BP 109 / 77; Pulse 96; Resp 22; Pulse Ox 98% ; Pain 0/10; jh6 20:02 BP 113 / 78; Pulse 106; Resp 20; Temp 98.2; Pulse Ox 100% on BiPAP; Pain 0/10; ke1 12:10 Body Mass Index 35.62 (122.47 kg, 185.42 cm) 7 MDM: 12:10 Patient medically screened. rn 13:37 Differential Diagnosis: electrolyte abnormality, UTI, volume depletion, hypercapnia, rn COPD, dehydration. Data reviewed: vital signs, nurses notes, lab test result(s), EKG, and as a result, I will admit patient. Counseling: I had a detailed discussion with the patient and/or guardian regarding: the historical points, exam findings, and any diagnostic results supporting the discharge/admit diagnosis, lab results, the need for further work-up and treatment in the hospital. Response to treatment: the patient's symptoms have mildly improved after treatment, and as a result, I will admit patient. Admission orders: after a detailed discussion of the patient's condition and case, the admit orders are written by me. ED course: Pt improved on Bipap, will admit for AMS and hypercapnia. 01/25 12:11 Order name: Blood Culture Adult (2) rn 01/25 12:11 Order name: CBC with Diff; Complete Time: 13:03 01/25 12:11 Order name: CMP; Complete Time: 13:33 rn 01/25 12:11 Order name: Lactate; Complete Time: 13:33 01/25 12:11 Order name: Protime (+inr); Complete Time: 13:33 rn 01/25 12:11 Order name: Ptt, Activated; Complete Time: 13:33 01/25 12:11 Order name: Urine Culture rn 01/25 12:11 Order name: Urine Microscopic Only; Complete Time: 14: rn 01/25 12:11 Order name: Chest Single View XRAY; Complete Time: 14: 01/25 12:11 Order name: ABG; Complete Time: 13: 01/25 12:11 Order name: SARS-COV-2 RT PCR (Document "Date of Onset" if Symptomatic); Complete Time: rn 14:01/25 12:11 Order name: Flu; Complete Time: 14: 01/25 12:12 Order name: BNP; Complete Time: 13: 01/25 12:54 Order name: Urine Dipstick-Ancillary; Complete Time: 13: [facility] 01/25 12:11 Order name: Cardiac monitoring; Complete Time: 13: 01/25 12:11 Order name: Cath; Complete Time: 13: 01/25 12:11 Order name: EKG - Nurse/Tech; Complete Time: 13: 01/25 12:11 Order name: IV Saline Lock - Large Bore; Complete Time: 13: 01/25 12:11 Order name: Labs collected and sent; Complete Time: 13: 01/25 12:11 Order name: O2 Per Protocol; Complete Time: 13: 01/25 12:11 Order name: O2 Sat Monitoring; Complete Time: 13: 01/25 12:11 Order name: Urine Dipstick-Ancillary (obtain specimen); Complete Time: 13: 01/25 13:03 Order name: BIPAP rn 01/25 19:15 Order name: CT EDMA 01/25 19:23 Order name: CT [facility] 01/25 18:13 Order name: Labs - recollect needed: 1 set of blood cultures, not labeled; Complete [facility] Time: 20:02 Administered Medications: 12:50 Drug: Xopenex (levalbuterol) 1.25 mg Route: Inhalation; [facility] 12:50 Drug: NS 0.9% 500 ml Route: IV; Rate: bolus; Site: left hand; [facility] 15:50 Drug: Rocephin (cefTRIAXone) 1 grams Route: IV; Rate: calculated rate; Site: left hand; [facility] 15:50 Drug: AZITHromycin 500 mg Route: IVPB; Infused Over: 1 hrs; Site: left hand; [facility] Disposition Summary: 01/25/22 13:44 Hospitalization Ordered Hospitalization Status: Inpatient Admission rn Location: Telemetry/MedSurg (Inpatient) rn Condition: Stable rn Problem: new rn Symptoms: have improved rn Bed/Room Type: Standard rn Provider: Kris Arguelles(01/25/22 14:39) rn Room Assignment: [facility](01/25/22 18:[facility] Diagnosis - Respiratory failure, unspecified with hypercapnia rn - COPD/ Chronic obstructive pulmonary disease, unspecified rn - Altered mental status, unspecified rn Forms: - Medication Reconciliation Form rn - SBAR form rn Signatures: Dispatcher [employer] EDSam mSall MD MD rn Herrera, Deanna [facility] Opal Sen, RN RN [facility] Corrections: (The following items were deleted from the chart) 14:39 13:44 Amber Alford rn rn 18:38 13:44 rn [facility]
[2022-01-25] MEDS ORDERED: CEFTRIAXONE 1000 MG/VIAL ONE (15:32)
[2022-01-25] MEDS ORDERED: AZITHROMYCIN 500 MG INJ IVPB ONE (15:33)
[2022-01-25] MEDS ORDERED: NA CHLORIDE 0.9% 250 ML ONE (15:33)
--- NOTE | 2022-01-25 16:14 | P.HP ---
Certification for Inpatient Patient admitted to: Inpatient With expected LOS: >2 Midnights Patient will require the following post-hospital care: None Practitioner: I am a practitioner with admitting privileges, knowledge of patient current condition, hospital course, and medical plan of care. Services: Services provided to patient in accordance with Admission requirements found in Title 42 Section 412.3 of the Code of Federal Regulations Patient History Date of Service: 01/25/22 Reason for admission: AMS History of Present Illness: Mr. Duncan is a 76 yo M with COPD on home oxygen, CHF, T2DM, HTN, HLD, atrial fibrillation on anticoagulation, and bipolar disorder who was sent in by fdc for 3 days of confusion and weakness. Upon arrival, patient found to be hypercapneic and was placed on BIPAP. At bedside, patient responds to pain but does not speak. Vital signs stable. CXR showed pneumonia vs edema. Allergies caffeine Allergy (Verified 03/12/19 22:27) Anaphylaxis codeine Allergy (Verified 03/12/19 22:27) Anaphylaxis Home Medications: ALPRAZolam [Xanax*] 0.5 mg PO BID 02/15/21 Acetaminophen [Tylenol] 325 mg PO BID 02/15/21 Amiodarone HCl [Cordarone*] 200 mg PO DAILY 02/15/21 Atorvastatin Calcium 10 mg PO BEDTIME 02/15/21 Brimonidine/Dorzolamide/Pf [Brimonidine 0.15%-Dorzolam 2%] 10 ml OP DAILY 02/15/21 Buspirone HCl [Buspar*] 5 mg PO TID 02/15/21 Carvedilol [Coreg] 3.125 mg PO BID 02/15/21 Divalproex Sodium [Depakote ER] 625 mg PO BID 02/15/21 Docusate [Colace Cap*] 100 mg PO BID 02/15/21 Doxepin HCl [Sinequan*] 25 mg PO BEDTIME 02/15/21 Furosemide [Lasix*] 40 mg PO DAILY 02/15/21 Gabapentin [Neurontin*] 100 mg PO TID 02/15/21 Insulin Degludec [Tresiba Flextouch U-100] 60 unit SQ DAILY 02/15/21 Levalbuterol HCl [Xopenex] 0.63 mg IH Q8HR 02/15/21 Levothyroxine [Synthroid*] 100 mcg PO [id number] 02/15/21 Lisinopril [Zestril] 20 mg PO DAILY 02/15/21 Magnesium Hydroxide [Milk of Magnesia] 30 ml PO DAILY PRN 02/15/21 Melatonin 12 mg PO BEDTIME 02/15/21 Memantine HCl [Namenda] 10 mg PO BID 02/15/21 Polyethylene Glycol 3350 [Miralax] 17 gm PO DAILY 02/15/21 Potassium Oral Tab [Klor-Con 10 mEq Tab*] 10 meq PO DAILY 02/15/21 Rivaroxaban [Xarelto] 20 mg PO DAILY 02/15/21 Sitagliptin Phosphate [Januvia*] 100 mg PO DAILY 02/15/21 Timolol 0.5% Opth [Timoptic 0.5% Opth*] 1 drops EACH EYE BID 02/15/21 Tramadol HCl [Ultram] 50 mg PO Q6HR PRN MDD 4 tabs 02/15/21 Venlafaxine HCl 75 mg PO DAILY 02/15/21 Zinc 50 mg PO DAILY 02/15/21 cloNIDine HCL [Clonidine HCl] 0.1 mg PO BID 02/15/21 acetaZOLAMIDE [Diamox*] 250 mg PO BID tab 02/16/21 - Past Medical/Surgical History Diabetic: Yes -: Severe COPD -: DM NIDDM -: HTN -: High cholesterol -: Bipolar -: CHF -: Heart stents Psychosocial/ Personal History: [facility] resident - Family History Mother -: Stroke Notes: Stroke - Social History Smoking Status: Unknown if ever smoked Alcohol use: No CD- Drugs: No Caffeine use: No Place of Residence: Home Review of Systems is unable to be obtained Physical Examination - Physical Exam General: Confused, Obese HEENT: Atraumatic, Normocephalic Respiratory: Diminished, Expiratory wheezes Cardiovascular: Normal S1 S2, Edema Capillary refill: <2 Seconds Gastrointestinal: Normal bowel sounds, Soft and benign Musculoskeletal: No clubbing, No swelling Integumentary: No rashes, No breakdown Neurological: Abnormal speech, Abnormal affect Lymphatics: No axilla or inguinal lymphadenopathy - Studies Laboratory Data (last 24 hrs) 01/25/22 12:47: PT 13.3 H, INR 1.20, APTT 35.3 01/25/22 12:47: Sodium 138, Potassium 4.0, BUN 27 H, Creatinine 1.25, Glucose 130 H, Total Bilirubin 0.3, AST 8 L, ALT < 10 L, Alkaline Phosphatase 90 01/25/22 12:47: WBC 5.6, Hgb 9.4 L, Hct 30.0 L, Plt Count 112 L Microbiology Data (last 24 hrs): 01/25/22 13:00 Nasopharnyx Influenza Type A Antigen Screen - Final 01/25/22 13:00 Nasopharnyx Influenza Type B Antigen Screen - Final Assessment and Plan - Plan Assessment Altered mental status Acute on chronic respiratory failure with hypercapnia 2/2 COPD CHF Atrial fibrillation on Xarelto T2DM HTN HLD Plan Altered mental status - CT head pending - may be associated with hypercapnia Acute on chronic respiratory failure with hypercapnia 2/2 COPD - continue BIPAP - RT consulted - monitor ABG - continue steroids, breathing treatments - no leukocytosis, no fever, will continue antibiotics while await results for CT chest, blood cultures pending CHF - continue IV lasix - reconcile home medications Atrial fibrillation on Xarelto - reconcile and continue home medications - EKG pending T2DM - sliding scale insulin and accuchecks HTN - reconcile home medications HLD - reconcile home medications Discharge Plan: Senior Living Plan to discharge in: 72 Hours - Advance Directives Does patient have a Living Will: No Does patient have a Durable POA for Healthcare: Yes - Code Status/Comfort Care Code Status Assessed: Yes (full code ) Critical Care: No Time Spent Managing Pts Care (In Minutes): 70
[2022-01-25] MEDS: INSULIN -REGULAR HUMAN 50 UNIT/0.5 ML ML SQ SCH ×2 (18:11→21:00)
[2022-01-25] MEDS ORDERED: ACETAMINOPHEN 500 MG TAB PO PRN (18:11)
[2022-01-25] MEDS ORDERED: HYDRALAZINE HCL 20 MG/ML VIAL IV PRN (18:11)
[2022-01-25] MEDS ORDERED: ONDANSETRON 4 MG/2 ML VIAL IV PRN (18:11)
--- NOTE | 2022-01-25 19:14 | RAD REPORT ---
EXAM DESCRIPTION: CT - Head Brain Wo Cont - 01/25/2022 7:06 pm CLINICAL HISTORY: AMS COMPARISON: Head Brain Wo Cont dated 02/14/2021; Head Brain Wo Cont dated 10/19/2019 TECHNIQUE: All CT scans are performed using dose optimization technique as appropriate and may inclu de automated exposure control or mA/KV adjustment according to patient size. FINDINGS: No intracranial hemorrhage, hydrocephalus or extra-axial fluid collection.No areas of brai n edema or evidence of midline shift. Age advanced cerebral atrophy with prominent extra-axial spaces . Chronic small vessel ischemic changes The paranasal sinuses and mastoids are clear. The calvarium is intact. IMPRESSION: No acute intracranial abnormality. No significant change from prior.
--- NOTE | 2022-01-25 19:21 | RAD REPORT ---
EXAM DESCRIPTION: CT - Thorax Wo Con - 01/25/2022 7:07 pm CLINICAL HISTORY: respiratory failure COMPARISON: Chest For Pe Angio dated 02/15/2021; Chest For Pe Angio dated 04/16/2020; Thorax Wo Con da stuart 10/20/2019; Chest For Pe Angio dated 03/12/2019; Chest Single View dated 01/25/2022 FINDINGS: Chest Wall: No suspicious thyroid nodules or pathologic lymphadenopathy. Lungs: Mild interlobular septal thickening. Chronic subpleural thickening in the right lower lobe. Ca lcified pulmonary nodules are noted. Pleura: No significant effusions or pneumothorax. Mediastinum/campos: No pathologic lymphadenopathy. Pulmonary arteries/Aorta: Limited evaluation without contrast. No aortic aneurysm. Heart: No significant pericardial effusion. Cardiomegaly. Multi-vessel coronary artery disease. Upper abdomen: No acute abnormality. Bones: No acute abnormality. Remote left rib fractures. All CT scans are performed using dose optimization technique as appropriate and may include automated exposure control or mA/KV adjustment according to patient size. IMPRESSION: Small pleural effusions. The right-sided pleural effusion is chronic wall of the left pl eural effusion is either new or increased. Subpleural thickening in the right lower lobe is also tunnel man alvino and likely reactive to the chronic effusion. Question mild interstitial edema but no convincing e vidence of pneumonia.
[2022-01-25] MEDS: METHYLPREDNISOLONE 40 MG INJ IV SCH (21:31)
[2022-01-25 21:50] LABS: Urine Appearance Clear (Clear); Urine Bilirubin Negative (Negative); Urine Blood Negative (Negative); Urine Color Yellow (Yellow); Urine Glucose Negative (Negative); Urine Protein 1+ (Negative); Urine Specific Gravity 1.025 (1.005-1.030); Urine Urobilinogen 0.2 mg/dL (0.2-1.0); Urine pH 6.5 (5.0-7.0)
[2022-01-25 21:53] LABS: Urine Microscopic Reflex ORDER UMIC
[2022-01-25 21:57] LABS: Urine Bacteria <20 /HPF (NONE SEEN); Urine RBC <5 /HPF (NONE SEEN)
[2022-01-26] MEDS: METHYLPREDNISOLONE 40 MG INJ IV SCH ×3 (01:08→17:03)
[2022-01-26] MEDS ORDERED: ALPRAZOLAM 0.25 MG TABLET PO PRN (02:33)
[2022-01-26 04:34] LABS: Absolute Lymphocytes (CBC) 0.2 K/uL (0.7-4.9); Hematocrit 32.1 % (39.6-49.0); Lymphocytes % 5.1 % (15.3-44.8); MPV 9.3 fL (7.6-11.3); RBC Red Blood Cell Count 3.43 M/uL (4.33-5.43)
[2022-01-26 05:01] LABS: Phosphorus 3.5 mg/dL (2.5-4.9); Potassium 4.1 mmol/L (3.5-5.1)
[2022-01-26 06:15] LABS: Arterial Blood Carboxyhemoglob 1.8 % (0-1.5); Blood Gas Oxyhemoglobin 94.6 % (94-97); Blood O2 Saturation 97.4 % (92-98.5)
[2022-01-26] MEDS ORDERED: TRAMADOL HCL 50 MG TAB PO PRN (06:20)
--- NOTE | 2022-01-26 06:23 | P.PN ---
Date of Service: 01/26/22 Subjective: feels better, breathing more comfortably, less confused ROS: 10 point ROS as noted above, otherwise negative Physical exam GEN: Alert, orientedx3, slight confusion HEENT: Normal conjunctiva, sclera anicteric CV: Regular rate and rhythm, +b/l lower extremity edema Pulm: mild labored respirations on 4L NC, b/l crackles ABD: Soft, nontender, nondistended Neuro: Normal speech, normal affect Problem List Altered mental status Acute on chronic respiratory failure with hypercapnia 2/2 COPD acute on chronic CHF Atrial fibrillation on Xarelto possible pneumonia T2DM HTN HLD CT head negative continue BIPAP, patient improving, ABG improved continue steroids, breathing treatments, antibiotics CT chest - no infection continue lasix for CHF exacerbation continue home meds, continue xarelto insulin sliding scale VTE: xarelto Code: full Dispo: home, ~2 days Time Spent Managing Pts Care (In Minutes): 35
[2022-01-26] MEDS: INSULIN -REGULAR HUMAN 50 UNIT/0.5 ML ML SQ SCH ×4 (07:30→21:00)
[2022-01-26] MEDS: BUSPIRONE HCL 5 MG TABLET PO SCH ×3 (08:57→21:03)
[2022-01-26] MEDS: AMIODARONE HCL 200 MG TAB PO SCH (08:57)
[2022-01-26] MEDS: DOCUSATE NA 100 MG CAP PO SCH ×2 (08:58→21:00)
[2022-01-26] MEDS: MEMANTINE HCL 10 MG TABLET PO SCH ×2 (08:58→21:04)
[2022-01-26] MEDS: acetaZOLAMIDE 250 MG TAB PO SCH (08:58)
[2022-01-26] MEDS: RIVAROXABAN 20 MG TABLET PO SCH (08:58)
[2022-01-26] MEDS: carvediloL 12.5 MG TAB PO SCH ×2 (08:58→21:08)
[2022-01-26] MEDS: FUROSEMIDE 20 MG/ 2ML VIAL IV SCH (08:58)
[2022-01-26] MEDS: TIMOLOL MALEATE 0.5% OPTH 5 ML BTL EACH EYE SCH ×2 (09:00→21:00)
[2022-01-26] MEDS: DIVALPROEX DR 250 MG TAB PO SCH ×2 (09:00→21:14)
[2022-01-26] MEDS: DORZOLAMIDE OPTH SCH ×2 (09:00→21:00)
[2022-01-26] MEDS: BRIMONIDINE OPTH SCH ×2 (09:00→21:00)
[2022-01-26] MEDS: VENLAFAXINE HCL 75 MG TABLET PO SCH (09:00)
[2022-01-26] MEDS ORDERED: AZITHROMYCIN 500 MG INJ IVPB ONE (11:29)
[2022-01-26] MEDS ORDERED: NA CHLORIDE 0.9% 250 ML ONE (11:30)
[2022-01-26] MEDS: CEFTRIAXONE 1,000 MG in NA CHLORIDE 0.9% 50 ML IVPB SCH (11:46)
[2022-01-26] MEDS: AZITHROMYCIN IV 500 MG in NA CHLORIDE 0.9% 250 ML IVPB SCH (11:47)
[2022-01-26] MEDS: ATORVASTATIN 10 MG TAB PO SCH (21:04)
[2022-01-26] MEDS: ALPRAZOLAM 0.5 MG TABLET PO PRN (21:22)
[2022-01-27] MEDS: METHYLPREDNISOLONE 40 MG INJ IV SCH ×3 (00:08→18:08)
[2022-01-27] MEDS: MELATONIN 5 MG TABLET PO PRN (01:22)
[2022-01-27] MEDS: ALPRAZOLAM 0.5 MG TABLET PO PRN ×2 (03:15→09:42)
[2022-01-27] MEDS: IPRATROPIUM BROM 0.5MG/2.5ML NEB PRN (03:30)
[2022-01-27] MEDS: ALBUTEROL 2.5 MG/3 ML NEB SOL NEB PRN (03:30)
[2022-01-27 04:42] LABS: Absolute Lymphocytes (CBC) 0.4 K/uL (0.7-4.9); Hematocrit 33.6 % (39.6-49.0); Lymphocytes % 5.4 % (15.3-44.8); RBC Red Blood Cell Count 3.61 M/uL (4.33-5.43)
[2022-01-27 04:55] LABS: Magnesium 2.2 mg/dL (1.8-2.4); Potassium 4.3 mmol/L (3.5-5.1)
[2022-01-27] MEDS: LEVOTHYROXINE SOD 0.1 MG TAB PO SCH (05:46)
[2022-01-27 05:49] VITALS: BMI 36.0
[2022-01-27] MEDS: INSULIN -REGULAR HUMAN 50 UNIT/0.5 ML ML SQ SCH ×4 (07:30→20:56)
[2022-01-27] MEDS ORDERED: CEFTRIAXONE 1000 MG/VIAL ONE (08:04)
--- NOTE | 2022-01-27 08:17 | RAD REPORT ---
EXAM DESCRIPTION: RAD - Chest Single View - 01/27/2022 7:06 am CLINICAL HISTORY: f/u opacities, effusions Chest pain. COMPARISON: Chest Single View dated 01/25/2022; Chest Single View dated 02/14/2021; Chest Single View dated 04/16/2020; Chest Single View dated 03/28/2020 FINDINGS: Portable technique limits examination quality. Moderate bilateral pulmonary opacities, greater on right, mildly worsened since the comparative study . The heart is mildly enlarged in size. No displaced fractures. IMPRESSION: Mild worsening in bilateral pulmonary opacities since comparative study.
[2022-01-27] MEDS: VENLAFAXINE HCL 75 MG TABLET PO SCH (09:00)
[2022-01-27] MEDS: DORZOLAMIDE OPTH SCH ×2 (09:00→20:52)
[2022-01-27] MEDS: BRIMONIDINE OPTH SCH ×2 (09:00→20:52)
[2022-01-27] MEDS: TIMOLOL MALEATE 0.5% OPTH 5 ML BTL EACH EYE SCH ×2 (09:00→20:56)
[2022-01-27 09:04] LABS: Arterial Blood Carboxyhemoglob 1.7 % (0-1.5); Blood Gas Oxyhemoglobin 89.3 % (94-97); Blood O2 Saturation 91.9 % (92-98.5)
[2022-01-27] MEDS: DIVALPROEX DR 250 MG TAB PO SCH ×2 (09:43→20:54)
[2022-01-27] MEDS: CEFTRIAXONE 1,000 MG in NA CHLORIDE 0.9% 50 ML IVPB SCH (09:45)
[2022-01-27] MEDS: AZITHROMYCIN IV 500 MG in NA CHLORIDE 0.9% 250 ML IVPB SCH (09:46)
[2022-01-27] MEDS: FUROSEMIDE 20 MG/ 2ML VIAL IV SCH (09:46)
[2022-01-27] MEDS: acetaZOLAMIDE 250 MG TAB PO SCH (09:47)
[2022-01-27] MEDS: DOCUSATE NA 100 MG CAP PO SCH ×2 (09:47→20:53)
[2022-01-27] MEDS: carvediloL 12.5 MG TAB PO SCH ×2 (09:47→20:54)
[2022-01-27] MEDS: RIVAROXABAN 20 MG TABLET PO SCH (09:47)
[2022-01-27] MEDS: BUSPIRONE HCL 5 MG TABLET PO SCH ×3 (09:47→20:52)
[2022-01-27] MEDS: MEMANTINE HCL 10 MG TABLET PO SCH ×2 (09:48→20:55)
[2022-01-27] MEDS: cloNIDine HCL 0.1 MG TAB PO SCH ×2 (09:48→20:53)
[2022-01-27] MEDS: AMIODARONE HCL 200 MG TAB PO SCH (09:48)
--- NOTE | 2022-01-27 16:14 | P.PN ---
Date of Service: 01/27/22 Subjective: slight improvement didn't tolerate BIPAP last night mild confusion still feels more short of breath than usual ROS: 10 point ROS as noted above, otherwise negative Physical exam GEN: Alert, orientedx3, slight confusion HEENT: Normal conjunctiva, sclera anicteric CV: Regular rate and rhythm, +b/l lower extremity edema Pulm: mild labored respirations on 4L NC, b/l crackles ABD: Soft, nontender, nondistended Neuro: Normal speech, normal affect Problem List Altered mental status, secondary to hypercapnia Acute on chronic respiratory failure with hypercapnia 2/2 COPD acute on chronic CHF Atrial fibrillation on Xarelto possible pneumonia T2DM HTN HLD CT head negative initially tolerated BIPAP when more altered; ABG improved; now that he is more alert, didn't tolerate bipap last night; ABG unchanged pulm consulted continue steroids, breathing treatments, antibiotics CT chest - no obvious evidence of pneumonia increase IV lasix for chf exacerbation continue home meds, continue xarelto insulin sliding scale VTE: xarelto Code: full Dispo: correction, ~2 days Time Spent Managing Pts Care (In Minutes): 35
[2022-01-27] MEDS: ATORVASTATIN 10 MG TAB PO SCH (20:55)
[2022-01-28] MEDS: METHYLPREDNISOLONE 40 MG INJ IV SCH ×2 (00:06→09:32)
[2022-01-28 04:09] LABS: Magnesium 2.4 mg/dL (1.8-2.4); Potassium 4.2 mmol/L (3.5-5.1)
[2022-01-28] MEDS: LEVOTHYROXINE SOD 0.1 MG TAB PO SCH (05:03)
[2022-01-28] MEDS: ALPRAZOLAM 0.5 MG TABLET PO PRN ×2 (05:03→11:43)
--- NOTE | 2022-01-28 06:20 | P.PN ---
Date of Service: 01/28/22 Subjective: slight improvement didn't tolerate BIPAP now that he is more alert ROS: 10 point ROS as noted above, otherwise negative Physical exam GEN: Alert, orientedx3, slight confusion HEENT: Normal conjunctiva, sclera anicteric CV: Regular rate and rhythm, +b/l lower extremity edema Pulm: mild labored respirations on 4.5LNC, b/l crackles ABD: Soft, nontender, nondistended Neuro: Normal speech, normal affect Problem List Altered mental status, secondary to hypercapnia Acute on chronic respiratory failure with hypercapnia 2/2 COPD acute on chronic CHF Atrial fibrillation on Xarelto possible pneumonia T2DM HTN HLD CT head negative initially tolerated BIPAP when more altered; ABG improved; now that he is more alert, didn't tolerate bipap; ABG unchanged pulm consulted continue steroids, breathing treatments, antibiotics CT chest - no obvious evidence of pneumonia increased IV lasix for chf exacerbation 01/27 continue home meds, continue xarelto insulin sliding scale VTE: xarelto Code: full Dispo: senior care, ~2 days would likely benefit from NIV; daughter states patient has CPAP, was busted but has working one now Time Spent Managing Pts Care (In Minutes): 35
[2022-01-28] MEDS: INSULIN -REGULAR HUMAN 50 UNIT/0.5 ML ML SQ SCH ×4 (07:30→20:21)
[2022-01-28] MEDS: BRIMONIDINE OPTH SCH ×2 (09:00→20:28)
[2022-01-28] MEDS: DORZOLAMIDE OPTH SCH ×2 (09:00→20:28)
[2022-01-28] MEDS: TIMOLOL MALEATE 0.5% OPTH 5 ML BTL EACH EYE SCH ×2 (09:00→20:27)
[2022-01-28] MEDS: acetaZOLAMIDE 250 MG TAB PO SCH (09:26)
[2022-01-28] MEDS: MEMANTINE HCL 10 MG TABLET PO SCH ×2 (09:26→20:23)
[2022-01-28] MEDS: RIVAROXABAN 20 MG TABLET PO SCH (09:26)
[2022-01-28] MEDS: DOCUSATE NA 100 MG CAP PO SCH ×2 (09:27→20:22)
[2022-01-28] MEDS: BUSPIRONE HCL 5 MG TABLET PO SCH ×3 (09:27→20:22)
[2022-01-28] MEDS: VENLAFAXINE HCL 75 MG TABLET PO SCH (09:28)
[2022-01-28] MEDS: carvediloL 12.5 MG TAB PO SCH ×2 (09:28→20:23)
[2022-01-28] MEDS: DIVALPROEX DR 250 MG TAB PO SCH ×2 (09:29→20:22)
[2022-01-28] MEDS: AMIODARONE HCL 200 MG TAB PO SCH (09:29)
[2022-01-28] MEDS: FUROSEMIDE 40 MG/4 ML VIAL IV SCH (09:30)
[2022-01-28] MEDS: CEFTRIAXONE 1,000 MG in NA CHLORIDE 0.9% 50 ML IVPB SCH (09:31)
[2022-01-28] MEDS: cloNIDine HCL 0.1 MG TAB PO SCH ×2 (09:31→20:31)
[2022-01-28] MEDS: AZITHROMYCIN IV 500 MG in NA CHLORIDE 0.9% 250 ML IVPB SCH (09:32)
--- NOTE | 2022-01-28 10:02 | P.CNS ---
Date of Consult: 01/28/22 Reason for Consult: Respiratory failure Chief Complaint: AMS History of Present Illness: Patient is 83 years of age prior history of stroke hypertension COPD currently on BiPAP admitted with increasing dyspnea and hypoxemia is currently stable Allergies caffeine Allergy (Verified 03/12/19 22:27) Anaphylaxis codeine Allergy (Verified 03/12/19 22:27) Anaphylaxis Home Medications: ALPRAZolam [Xanax*] 0.5 mg PO Q6HP PRN 02/15/21 Amiodarone HCl [Cordarone*] 200 mg PO DAILY 02/15/21 Atorvastatin Calcium 10 mg PO BEDTIME 02/15/21 Brimonidine/Dorzolamide/Pf [Brimonidine 0.15%-Dorzolam 2%] 1 gtt EACH EYE BID 02/15/21 Buspirone HCl [Buspar*] 10 mg PO TID 02/15/21 Divalproex Sodium [Depakote ER] 625 mg PO BID 02/15/21 Docusate [Colace Cap*] 200 mg PO BID 02/15/21 Doxepin HCl [Sinequan*] 25 mg PO BEDTIME 02/15/21 Furosemide [Lasix*] 40 mg PO DAILY 02/15/21 Insulin Degludec [Tresiba Flextouch U-100] 55 unit SQ BEDTIME 02/15/21 Levalbuterol HCl [Xopenex] 3 ml IH Q8HR 02/15/21 Levothyroxine [Synthroid*] 100 mcg PO [id number] 02/15/21 Magnesium Hydroxide [Milk of Magnesia] 30 ml PO DAILY PRN 02/15/21 Memantine HCl [Namenda] 10 mg PO BID 02/15/21 Polyethylene Glycol 3350 [Miralax] 17 gm PO DAILY 02/15/21 Rivaroxaban [Xarelto] 20 mg PO DAILY 02/15/21 Sitagliptin Phosphate [Januvia*] 100 mg PO DAILY 02/15/21 Timolol 0.5% Opth [Timoptic 0.5% Opth*] 1 drops EACH EYE BID 02/15/21 Tramadol HCl [Ultram] 50 mg PO Q6HR PRN 02/15/21 Venlafaxine HCl 75 mg PO DAILY 02/15/21 Zinc 50 mg PO DAILY 02/15/21 cloNIDine HCL [Clonidine HCl] 0.1 mg PO BID 02/15/21 Albuterol Sulfate [Albuterol Sulfate 0.083% Neb Soln] 2.5 mg IH Q8HP PRN 01/26/22 Arformoterol Tartrate [Brovana] 15 mcg IH BID 01/26/22 Carvedilol [Coreg] 12.5 mg PO BID 01/26/22 Guaifenesin [Cough Syrup] 10 ml PO Q6HP PRN 01/26/22 Hydrocodone 7.5/APAP 325 [[place] 7.5/325 mg] 1 tab PO BID 01/26/22 Melatonin 15 mg PO BEDTIME 01/26/22 Potassium Chloride [Klor-Con M20] 20 meq PO DAILY 01/26/22 acetaZOLAMIDE [Diamox*] 250 mg PO DAILY 01/26/22 lisinopriL [Lisinopril] 5 mg PO DAILY 01/26/22 Fluticasone/Umeclidin/Vilanter [Trelegy Ellipta 100-62.5-25] 1 each IH DAILY 30 Days #30 blst.w.dev 01/29/22 predniSONE [Deltasone*] 10 mg PO BID #20 tab 01/29/22 - Past Medical/Surgical History Diabetic: Yes -: Severe COPD, Pt has a BIPAP -: DM NIDDM -: HTN -: High cholesterol -: Bipolar -: CHF -: Heart stents Psychosocial/ Personal History: [facility] resident - Family History Mother Medical History: Stroke Notes: Stroke - Social History Smoking Status: Unknown if ever smoked Alcohol use: No CD- Drugs: No Caffeine use: Yes Place of Residence: [facility] Review of Systems is unable to be obtained Physical Examination Temp Pulse Resp BP Pulse Ox 97.2 F 120 H 18 116/69 95 01/28/22 08:07 01/28/22 09:31 01/28/22 08:07 01/28/22 09:31 01/28/22 08:07 General: Alert, Other (Agitated) Neck: Supple Respiratory: Clear to auscultation bilaterally, Diminished, Friction rub Cardiovascular: Regular rate/rhythm, Normal S1 S2 Gastrointestinal: Normal bowel sounds, Soft and benign - Problems (1) Acute respiratory failure with hypoxia and hypercapnia Current Visit: No Status: Acute Plan: Patient is 76 years of age with a history of hypercapnic respiratory failure admitted with respiratory failure and hypercapnia apparently on 30% FiO2 hypercapnia hypoxemia has improved renal function is improving chest CT shows bilateral pleural effusions normal echocardiogram last year no evidence of sepsis DC antibiotics probably has underlying diastolic dysfunction blood cultures likely contaminant. Pt supposed to be on NIV and BRovana/ titrate sat to 90% FU with me 2 wks
[2022-01-28] MEDS: ALBUTEROL 2.5 MG/3 ML NEB SOL NEB PRN (13:13)
[2022-01-28] MEDS: IPRATROPIUM BROM 0.5MG/2.5ML NEB PRN (13:13)
[2022-01-28] MEDS: ARFORMOTEROL TARTRATE 15 MCG/2 ML VIAL.NEB NEB SCH (19:35)
[2022-01-28] MEDS: ATORVASTATIN 10 MG TAB PO SCH (20:21)
[2022-01-28] MEDS: MELATONIN 5 MG TABLET PO PRN (20:23)
[2022-01-29 04:09] LABS: Magnesium 2.3 mg/dL (1.8-2.4); Potassium 3.9 mmol/L (3.5-5.1)
[2022-01-29] MEDS: ALPRAZOLAM 0.5 MG TABLET PO PRN ×2 (04:46→11:46)
[2022-01-29] MEDS: LEVOTHYROXINE SOD 0.1 MG TAB PO SCH (05:43)
[2022-01-29] MEDS: INSULIN -REGULAR HUMAN 50 UNIT/0.5 ML ML SQ SCH ×4 (07:23→20:20)
[2022-01-29] MEDS: ARFORMOTEROL TARTRATE 15 MCG/2 ML VIAL.NEB NEB SCH ×2 (07:55→20:00)
[2022-01-29] MEDS: DORZOLAMIDE OPTH SCH ×2 (09:00→20:30)
[2022-01-29] MEDS: TIMOLOL MALEATE 0.5% OPTH 5 ML BTL EACH EYE SCH ×2 (09:00→20:27)
[2022-01-29] MEDS: DIVALPROEX DR 250 MG TAB PO SCH ×2 (09:00→20:25)
[2022-01-29] MEDS: BRIMONIDINE OPTH SCH ×2 (09:00→20:30)
[2022-01-29] MEDS: BUSPIRONE HCL 5 MG TABLET PO SCH ×3 (09:01→20:22)
[2022-01-29] MEDS: DOCUSATE NA 100 MG CAP PO SCH ×2 (09:02→20:24)
[2022-01-29] MEDS: MEMANTINE HCL 10 MG TABLET PO SCH ×2 (09:02→20:22)
[2022-01-29] MEDS: RIVAROXABAN 20 MG TABLET PO SCH (09:02)
[2022-01-29] MEDS: acetaZOLAMIDE 250 MG TAB PO SCH (09:02)
[2022-01-29] MEDS: cloNIDine HCL 0.1 MG TAB PO SCH ×2 (09:02→20:22)
[2022-01-29] MEDS: carvediloL 12.5 MG TAB PO SCH ×2 (09:02→20:25)
[2022-01-29] MEDS: AMIODARONE HCL 200 MG TAB PO SCH (09:03)
[2022-01-29] MEDS: FUROSEMIDE 40 MG/4 ML VIAL IV SCH (09:03)
[2022-01-29] MEDS: VENLAFAXINE HCL 75 MG TABLET PO SCH (09:06)
--- NOTE | 2022-01-29 13:07 | P.PN ---
Subjective Date of Service: 01/29/22 Chief Complaint: C resp failure Subjective: Improving (Doing much better today Alert and responsive. No nebs or BD at home. PRoblem with BIPAP mask) Review of Systems General: Weakness Respiratory: Shortness of Breath Physical Examination - Vital Signs Temperature: 97.9 F Blood Pressure: 135/69 Pulse: 104 Respirations: 16 Pulse Ox (%): 97 - Physical Exam General: Alert, Oriented x3 Respiratory: Clear to auscultation bilaterally, Diminished Cardiovascular: Regular rate/rhythm, Normal S1 S2, Edema Assessment And Plan - Current Problems (Diagnosis) (1) Respiratory failure with hypoxia and hypercapnia Current Visit: Yes Status: Acute Plan: C Resp failure Doign better/ DC home Pt has a BIPAP in NH. Needs BD's at home. Ordered Treelgy and needs nebs. HXof Severe COPD. Labs reviewed stable for discahrge Qualifiers: Chronicity: chronic Qualified Code(s): J96.11 - Chronic respiratory failure with hypoxia; J96.12 - Chronic respiratory failure with hypercapnia
--- NOTE | 2022-01-29 16:07 | P.PN ---
Subjective Date of Service: 01/29/22 Chief Complaint: AMS Patient reports feeling much better. He denies shortness of breath at the moment. He is currently maintained on high flow oxygen with SaO2 in the mid 90s. He is tolerating his meals. Physical Examination - Vital Signs Temperature: 97.9 F Blood Pressure: 135/69 Pulse: 104 Respirations: 16 Pulse Ox (%): 97 - Physical Exam General: In no apparent distress, Oriented x2 HEENT: Mucous membr. moist/pink Neck: Supple, JVD not distended Respiratory: Diminished (Bilateral), Other (No crackles) Cardiovascular: Normal pulses, Regular rate/rhythm, Normal S1 S2 Gastrointestinal: Soft and benign, Non-distended, No tenderness Musculoskeletal: No swelling Integumentary: No rashes Neurological: Normal strength at 5/5 x4 extr Assessment And Plan - Plan Physical exam GEN: Alert, orientedx2, slight confusion HEENT: Normal conjunctiva, sclera anicteric CV: Regular rate and rhythm, +b/l lower extremity edema Pulm: mild labored respirations on 4.5LNC, b/l crackles ABD: Soft, nontender, nondistended Neuro: Normal speech, normal affect Problem List Altered mental status, secondary to hypercapnia Acute on chronic respiratory failure with hypercapnia 2/2 COPD acute on chronic CHF Atrial fibrillation on Xarelto possible pneumonia T2DM HTN HLD Plan: ABG improved. Patient with compensatory elevated bicarb Patient agrees to use BiPAP as needed. Pulmonary input appreciated continue steroids, breathing treatments, antibiotics. He will need long-acting bronchodilators as outpatient. Per Dr. Almaguer patient has a BiPAP machine in the senior care. CT chest - no obvious evidence of pneumonia Need to wean down oxygen to O2 by nasal cannula for discharge to senior care. Patient can use BiPAP in the senior care. Continue IV Lasix continue home meds, continue xarelto insulin sliding scale VTE: xarelto Code: full
[2022-01-29] MEDS: IPRATROPIUM BROM 0.5MG/2.5ML NEB PRN (20:00)
[2022-01-29] MEDS: ATORVASTATIN 10 MG TAB PO SCH (20:24)
[2022-01-29] MEDS: MELATONIN 5 MG TABLET PO PRN (20:31)
[2022-01-30 04:54] LABS: Absolute Lymphocytes (CBC) 0.9 K/uL (0.7-4.9); Hematocrit 31.1 % (39.6-49.0); Lymphocytes % 13.7 % (15.3-44.8); MPV 9.9 fL (7.6-11.3); RBC Red Blood Cell Count 3.39 M/uL (4.33-5.43)
[2022-01-30 05:07] LABS: Potassium 3.9 mmol/L (3.5-5.1)
[2022-01-30] MEDS: LEVOTHYROXINE SOD 0.1 MG TAB PO SCH (05:40)
[2022-01-30] MEDS: INSULIN -REGULAR HUMAN 50 UNIT/0.5 ML ML SQ SCH (07:30)
[2022-01-30] MEDS: ARFORMOTEROL TARTRATE 15 MCG/2 ML VIAL.NEB NEB SCH (07:31)
[2022-01-30 08:25] VITALS: O2SAT 97
[2022-01-30 08:43] VITALS: BP 152/86; TEMP 97.6
[2022-01-30] MEDS: DOCUSATE NA 100 MG CAP PO SCH (08:49)
[2022-01-30] MEDS: cloNIDine HCL 0.1 MG TAB PO SCH (08:49)
[2022-01-30] MEDS: MEMANTINE HCL 10 MG TABLET PO SCH (08:49)
[2022-01-30] MEDS: carvediloL 12.5 MG TAB PO SCH (08:50)
[2022-01-30] MEDS: VENLAFAXINE HCL 75 MG TABLET PO SCH (08:50)
[2022-01-30] MEDS: RIVAROXABAN 20 MG TABLET PO SCH (08:50)
[2022-01-30] MEDS: BUSPIRONE HCL 5 MG TABLET PO SCH (08:50)
[2022-01-30] MEDS: AMIODARONE HCL 200 MG TAB PO SCH (08:51)
[2022-01-30] MEDS: FUROSEMIDE 40 MG/4 ML VIAL IV SCH (08:51)
[2022-01-30] MEDS: acetaZOLAMIDE 250 MG TAB PO SCH (08:51)
[2022-01-30] MEDS: DIVALPROEX DR 250 MG TAB PO SCH (08:52)
[2022-01-30] MEDS: BRIMONIDINE OPTH SCH (09:00)
[2022-01-30] MEDS: DORZOLAMIDE OPTH SCH (09:00)
[2022-01-30] MEDS: TIMOLOL MALEATE 0.5% OPTH 5 ML BTL EACH EYE SCH (09:00)
--- NOTE | 2022-01-30 18:05 | P.DS ---
Admission Date: 01/25/22 Discharge Date: 01/30/22 Disposition: TRANSFER TO [facility] Discharge Condition: FAIR Reason for Admission: AMS Consultations: Pulmonary-Dr. Almaguer. Brief History of Present Illness: Mr. Duncan is a 76 yo M with COPD on home oxygen, CHF, T2DM, HTN, HLD, atrial fibrillation on anticoagulation, and bipolar disorder who was sent in by [facility] for 3 days of confusion and weakness. Upon arrival, patient found to be hypercapneic and was placed on BIPAP. At bedside, patient was responding to pain but nonverbal. Vital signs stable. CXR showed pneumonia vs edema. Patient ad mitted for further management. Hospital Course: Diagnosis Altered mental status, secondary to hypercapnia Acute on chronic respiratory failure with hypercapnia 2/2 COPD acute on chronic CHF Atrial fibrillation on Xarelto possible pneumonia T2DM HTN HLD Hospital course Patient admitted to the medical floor and treated with IV Lasix, IV antibiotics and placed on BiPAP therapy ABG improved improved with BiPAP Patient with compensatory elevated bicarb. Patient with history of metabolic acidosis on acetazolamide. Lasix was transitioned to acetazolamide. ABG improved and patient weaned off BiPAP to high flow oxygen. He was also using BiPAP at night. He was also treated with steroids and bronchodilators. Patient seen by pulmonary-Dr. Almaguer who recommended long-term long-acting bronchodilators. He will need long-acting bronchodilators as outpatient. Pulmonary also recommended outpatient NIV. CT chest - no obvious evidence of pneumonia Patient eventually weaned from high flow oxygen to oxygen by nasal cannula. Her symptoms significantly improved and deemed stable for discharge. Vital Signs/Physical Exam: Temp Pulse Resp BP Pulse Ox 97.6 F 95 H 20 152/86 H 93 01/30/22 08:00 01/30/22 08:51 01/30/22 08:00 01/30/22 08:51 01/30/22 08:00 General: In no apparent distress, Oriented x2 HEENT: Mucous membr. moist/pink Neck: JVD not distended Respiratory: Diminished Cardiovascular: Normal S1 S2, Edema (Bilateral lower extremities), Irregular heart rate/rhythm Gastrointestinal: Soft and benign, Non-distended Musculoskeletal: No tenderness Integumentary: No cyanosis Neurological: Other (No focal motor deficit) Laboratory Data at Discharge: WBC 6.8 K/uL (4.3-10.9) 01/30/22 04:22 Hgb 10.1 g/dL (13.6-17.9) L 01/30/22 04:22 Hct 31.1 % (39.6-49.0) L 01/30/22 04:22 Plt Count 106 K/uL (152-406) L D 01/30/22 04:22 PT 13.3 SECONDS (9.5-12.5) H 01/25/22 12:47 INR 1.20 01/25/22 12:47 APTT 35.3 SECONDS (24.3-36.9) 01/25/22 12:47 Sodium 137 mmol/L (136-145) 01/30/22 04:22 Potassium 3.9 mmol/L (3.5-5.1) 01/30/22 04:22 BUN 31 mg/dL (7-18) H 01/30/22 04:22 Creatinine 1.14 mg/dL (0.55-1.3) 01/30/22 04:22 Glucose 126 mg/dL (74-106) H 01/30/22 04:22 Phosphorus 3.5 mg/dL (2.5-4.9) 01/26/22 04:12 Magnesium 2.3 mg/dL (1.8-2.4) 01/29/22 03:24 Total Bilirubin 0.3 mg/dL (0.2-1.0) 01/25/22 12:47 AST 8 U/L (15-37) L 01/25/22 12:47 ALT < 10 U/L (12-78) L 01/25/22 12:47 Alkaline Phosphatase 90 U/L (45-117) 01/25/22 12:47 Home Medications: ALPRAZolam [Xanax*] 0.5 mg PO Q6HP PRN 02/15/21 Amiodarone HCl [Cordarone*] 200 mg PO DAILY 02/15/21 Atorvastatin Calcium 10 mg PO BEDTIME 02/15/21 Brimonidine/Dorzolamide/Pf [Brimonidine 0.15%-Dorzolam 2%] 1 gtt EACH EYE BID 02/15/21 Buspirone HCl [Buspar*] 10 mg PO TID 02/15/21 Divalproex Sodium [Depakote ER] 625 mg PO BID 02/15/21 Docusate [Colace Cap*] 200 mg PO BID 02/15/21 Doxepin HCl [Sinequan*] 25 mg PO BEDTIME 02/15/21 Furosemide [Lasix*] 40 mg PO DAILY 02/15/21 Insulin Degludec [Tresiba Flextouch U-100] 55 unit SQ BEDTIME 02/15/21 Levalbuterol HCl [Xopenex] 3 ml IH Q8HR 02/15/21 Levothyroxine [Synthroid*] 100 mcg PO [id number] 02/15/21 Magnesium Hydroxide [Milk of Magnesia] 30 ml PO DAILY PRN 02/15/21 Memantine HCl [Namenda] 10 mg PO BID 02/15/21 Polyethylene Glycol 3350 [Miralax] 17 gm PO DAILY 02/15/21 Rivaroxaban [Xarelto] 20 mg PO DAILY 02/15/21 Sitagliptin Phosphate [Januvia*] 100 mg PO DAILY 02/15/21 Timolol 0.5% Opth [Timoptic 0.5% Opth*] 1 drops EACH EYE BID 02/15/21 Tramadol HCl [Ultram] 50 mg PO Q6HR PRN 02/15/21 Venlafaxine HCl 75 mg PO DAILY 02/15/21 Zinc 50 mg PO DAILY 02/15/21 cloNIDine HCL [Clonidine HCl] 0.1 mg PO BID 02/15/21 Albuterol Sulfate [Albuterol Sulfate 0.083% Neb Soln] 2.5 mg IH Q8HP PRN 01/26/22 Arformoterol Tartrate [Brovana] 15 mcg IH BID 01/26/22 Carvedilol [Coreg] 12.5 mg PO BID 01/26/22 Guaifenesin [Cough Syrup] 10 ml PO Q6HP PRN 01/26/22 Melatonin 15 mg PO BEDTIME 01/26/22 Potassium Chloride [Klor-Con M20] 20 meq PO DAILY 01/26/22 acetaZOLAMIDE [Diamox*] 250 mg PO DAILY 01/26/22 lisinopriL [Lisinopril] 5 mg PO DAILY 01/26/22 Fluticasone/Umeclidin/Vilanter [Trelegy Ellipta 100-62.5-25] 1 each IH DAILY 30 Days #30 blst.w.dev 01/29/22 predniSONE [Deltasone*] 10 mg PO BID #20 tab 01/29/22 New Medications: predniSONE [Deltasone*] 10 mg PO BID #20 tab Fluticasone/Umeclidin/Vilanter [Trelegy Ellipta 100-62.5-25] 1 each IH DAILY 30 Days #30 blst.w.dev Diet: ADA Activity: Fall precautions Followup: Tory Garcia MD [Primary Care Provider] - 1-2 Weeks Time spent managing pt's care (in minutes): 34
== END 2022-01-30 12:00 | DRG 189 ==
LOC: ER 12:03 → ERHOLD 15:40 → 2ND 20:39
PROVIDERS: ADMIT Hospitalist; ATTEND Hospitalist
PROC: 5A09457 Assistance with Respiratory Ventilation, 24-96 Consecutive Hours, Continuous Positive Airway Pressure (ICD-10-PCS; principal; 2022-01-25)
PROC: 5A0945A Assistance with Respiratory Ventilation, 24-96 Consecutive Hours, High Flow/Velocity Cannula (ICD-10-PCS; 2022-01-28)
DX: J96.22 Acute and chronic respiratory failure with hypercapnia (principal); I50.33 Acute on chronic diastolic (congestive) heart failure; J18.9 Pneumonia, unspecified organism; G93.40 Encephalopathy, unspecified; J44.1 Chronic obstructive pulmonary disease with (acute) exacerbation; J44.0 Chronic obstructive pulmonary disease with (acute) lower respiratory infection; L89.151 Pressure ulcer of sacral region, stage 1; J96.21 Acute and chronic respiratory failure with hypoxia; I11.0 Hypertensive heart disease with heart failure; I48.91 Unspecified atrial fibrillation; E11.9 Type 2 diabetes mellitus without complications; E78.5 Hyperlipidemia, unspecified; F31.9 Bipolar disorder, unspecified; Z99.81 Dependence on supplemental oxygen; Z79.01 Long term (current) use of anticoagulants; Z86.73 Personal history of transient ischemic attack (TIA), and cerebral infarction without residual deficits; Z20.822 Contact with and (suspected) exposure to COVID-19
CPT/HCPCS: 36415; 70450; 71045; 71250; 80048; 80053; 81003; 81015; 82805; 82947; 83605; 83735; 83880; 84100; 85025; 85610; 85730; 87040; 87086; 87088; 87205; 87804; 94002; 94003; 94640; 94660; 94760; 96374; 96375; 97110; 97161; 97530; 99285; J0456; J1815; J1940; J2920; J7040; J7050; J7605; U0003

== ENCOUNTER 2022-04-03 19:34 | Inpatient (IN) | payer OTHER ==
--- OUTSIDE RECORDS SUMMARY | 2022-04-03 19:38 | XMS REPORT | Continuity of Care Document ---
:1945 Author Organization [facility] t Address [address] [place] [address] Care Team Providers Name Role Phone PCP, PATIENT DOES NOT HAVE A Primary Care Physician Jenna Pascual Attending Clinician Unavailable ANDREW OVIEDO Attending Clinician Unavailable Andrew Oviedo MD Attending Clinician Jj Rodriguez MD Attending Clinician JJ RODRIGUEZ Attending Clinician Unavailable Doctor Unassigned, [place] Attending Clinician Unavailable ANDREW OVIEDO Admitting Clinician Unavailable Payers Payer Name Policy Type Policy Number Effective Date Expiration Date [facility] [id number] MEDICARE PART A \T\ [id number] 2001 B 00:00:00 MEDICAID [facility] [id number] 2012 00:00:00 Problems Condition Condition Condition Status Onset Resolution Last Treating Co mments Source Name Details Category Date Date Treatment Clinician Date Diabetes Diabetes Disease Active Unive rs mellitus mellitus 8-10 ity of type 2, type 2, 00:00: [place] controlled controlled 00 Ky dical Branch HLD HLD Disease Active Univers (hyperlipi (hyperlipi 8-10 it y of demia) demia) 00:00: [place] 00 Medical Branch Essential Essential Disease Active Uni vers hypertensi hypertensi 8-10 it y of on, benign [place] Schizoaffe Schizoaffe Disease Active U nivers ctive ctive 8-10 ity of disorder disorder 00:00: 00 Medical Branch Low Low Disease Active Univers testostero testostero 8-10 it y of ne ne 00:00: Medical Branch COPD COPD Disease Active Univers (chronic (chronic 8-10 ity of obstructiv obstructiv [place] Medical pulmonary pulmonary Bran ch disease) disease) CAD CAD Disease Active Univers (coronary (coronary 8-10 ity of artery artery 00:00: [place] disease) disease) 00 Medica l Branch Glaucoma Glaucoma Disease Active Unive rs 8-10 ity of 00:00: Medical Branch Anxiety Anxiety Disease Active Overview: Univ ers state state 8-10 Formattin ity of 00:00: g of this note Medical might be Branch different from the original. ICD10 Diagnosis Term [employer] Hypothyroi Hypothyroi Disease Active U nivers dism dism 8-10 ity of 00:00: Medical Branch Type 2 Type 2 Problem Active Common diabetes diabetes Spirit mellitus mellitus - [facility]I without without St complicati complicati Jade kes on, on, Medical unspecifie unspecifie Ce nter d whether d whether dental manager detention insulin insulin use use Congestive Congestive Problem Active C ommon heart heart Spirit failure, failure, - CHI unspecifie unspecifie St HF d HF [facility] chronicity chronicity Me dical , , Center unspecifie unspecifie d heart d heart failure failure type type Essential Essential Problem Active Com mon (primary) (primary) Spir it hypertensi hypertensi - CHI on on [facility] Depression Depression Problem Active C ommon with with Spirit anxiety anxiety - CHI [facility] Acquired Acquired Problem Active Commo n hypothyroi hypothyroi Sp leila dism dism - CHI [facility] Bipolar 1 Bipolar 1 Problem Active Com mon disorder, disorder, Spir it depressed, depressed, - CHI full full St remission remission [facility] Hyperlipid Hyperlipid Problem Active C ommon emia, emia, Spirit unspecifie unspecifie - CHI d d St hyperlipid hyperlipid Jade kes emia type emia type [facility] Seasonal Seasonal Problem Active Commo n allergies allergies Spir it - CHI [facility] Chronic Chronic Problem Active Common obstructiv obstructiv Sp leila e e - CHI pulmonary pulmonary St disease, disease, kes unspecifie unspecifie Me dical d COPD d COPD Center type type Type 2 Type 2 Problem Active Common diabetes diabetes Spirit mellitus mellitus - [facility] with foot with foot St ulcer ulcer [facility] Non-pressu Non-pressu Problem Active C ommon re chronic re chronic Sp leila ulcer of ulcer of - [facility] other part other part St of right of right [facility] foot with foot with Medi magda other other Center specified specified severity severity Recurrent Recurrent Problem Active Com mon falls falls Spirit while while - CHI walking walking [facility] Chronic Chronic Problem Active Common kidney kidney Spirit disease, disease, - CHI unspecifie unspecifie St d CKD d CKD 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 [facility] Allergies, Adverse Reactions, Alerts Allergy Allergy [...] Info Not Common Reaction Available Spiri t [facility] Social History Social Habit Start Date Stop Date Quantity Comments Source History SDOH University o f Alcohol Frequency [place] M edical Branch History SDTN University o f Alcohol Std [place] Medical Drinks Branch History [facility] University o f Alcohol Binge [place] Medic al Branch History of Chews Tobacco University of tobacco use [place] [facility] Exposure to 2021-12-31 2022-01-10 Not sure University of SARS-CoV-2 00:00:00 08:40:00 [place] Medical (event) Branch Alcohol intake 2012-12-31 2012-12-31 Current University of 00:00:00 00:00:00 non-drinker of [facility] alcohol Branch (finding) Alcohol Comment 2011-06-28 2011-06-28 quit alcohol Univers ity of 00:00:00 00:00:00 [facility] Tobacco use and 2011-06-28 2011-06-28 Current user Univers ity of exposure 00:00:00 00:00:00 [facility] Sex [birth year] Universit y of 00:00:00 00:00:00 [facility] Smoking Status Start Date Stop Date Source Former smoker 2011-06-28 00:00:00 2011-06-28 00:00:00 Universi ty of [facility] Medications Ordered Filled Start Stop Current Ordering Indication Dosage Frequency Signature Comments Components Source Medication Medication Date Date Medication? Clinician (SIG) Name Name Carvedilol Carvedilol Yes Jenna 1 tablet Common 9-26 [place] Spirit 00:00: - CHI 00 [facility] Glucometer Glucometer Yes Jenna one strip Common test strips test strips 9-16 [place] using the Spirit 00:00: [facility] Metric glucometer [facility] Albuterol Albuterol 2017-09 Yes Jenna 3 ml as Common Sulfate Sulfate 2-18 [place] needed Sp leila 00:00: - CHI 00 [facility] risperidone 2012-09 Yes 4mg Take 4 mg U nivers (RISPERDAL) -22 by mouth ity of 3 mg tablet 09:36: at [place] [address] bedtime. Medical Branch acetaminoph 2012-09 Yes Take by Uni vers en (MAPAP) 1-22 mouth ity of 325 mg 09:36: every 4 [place] [facility] 18 (four) Medical hours as Branch needed. ALPRAZolam 2012-09 Yes .5mg Take 0.5 Uni vers (XANAX) 0.5 1-22 mg by ity of mg tablet 09:36: mouth 2 [place] 18 (two) Medical times Branch daily. Also takes one at bedtime multivitami 2012-09 Yes 1{tbl} Take 1 Tab Univers n (TAB A 1-22 by mouth ity of THIAGO) 09:36: daily. [place] [facility] 18 Medical Branch traZODONE 2012-09 Yes 50mg Take 50 mg Un jewels (DESYREL) 1-22 by mouth ity of 50 mg 09:36: at [facility] 18 bedtime. Medical Branch magnesium 2012-09 Yes 30mL Take 30 mL Un jewels hydroxide 1-22 by mouth ity of (MILK OF 09:36: daily. [place] MAGNESIA) 18 Medical 400 mg/5 mL Branch suspension insulin 2012-09 Yes 13U [facility]22 Units ity of (LANTUS) [...] ity of 0.2 % 09:36: both eyes [place] ophthalmic 2 (two) Medica l solution times [place] daily. lisinopril 2012-09 Yes 20mg Take 20 mg U nivers (PRINIVIL,Z -22 by mouth ity of ESTRIL) 20 09:36: daily. [place] mg tablet 18 Medical Branch SENNOSIDES 2012-09 Yes Take by [facility] ers (SENOKOT 1-22 mouth. ity of ORAL) 09:36: Indication [place] 18 s: take 2 Medical tabs by Branch mouth at bedtime amLODIPine 2012-09 Yes 10mg Take 10 mg U nivers (NORVASC) -22 by mouth ity of 10 mg 09:36: daily. [place] tablet 18 Medical Branch latanoprost 2012-09 Yes 1[drp] 1 Drop Un jewels (XALATAN) -22 every ity of 0.005 % 09:36: evening. [place] ophthalmic 18 Medical drops Branch risperidone 2012-09 Yes 4mg Take 4 mg U nivers (RISPERDAL) -22 by mouth ity of 3 mg tablet 09:36: at [place] [address] bedtime. Medical Branch acetaminoph 2012-09 Yes Take by Uni vers en (MAPAP) 1-22 mouth ity of 325 [...] by mouth ity of THIAGO) 09:36: daily. [place] tablet 18 Medical Branch traZODONE 2012-09 Yes 50mg Take 50 mg Un jewels (DESYREL) 1-22 by mouth ity of 50 mg 09:36: at [place] tablet 18 bedtime. Medical Branch magnesium 2012-09 Yes 30mL Take 30 mL Un jewels hydroxide -22 by mouth ity of (MILK OF 09:36: daily. [place] MAGNESIA) Medical 400 mg/5 mL [place] suspension insulin 2012-09 Yes 13U inject 13 [facility] rs glargine 1-22 Units ity of (LANTUS) 09:36: under the [facility] 100 unit/mL 18 skin at Medic al injection bedtime. Branch venlafaxine 2012-09 Yes 150mg Take 150 U nivers XR (EFFEXOR 1-22 mg by ity of XR) 150 mg 09:36: mouth [place] 24 hr 18 daily with Medical capsule breakfast. Branch brimonidine 2012-09 Yes 1[drp] Place 1 U nivers (ALPHAGAN) 1-22 Drop in ity of 0.2 % 09:36: both eyes [place] ophthalmic 2 (two) Medica l solution times [place] daily. lisinopril 2012-09 Yes 20mg Take 20 mg U nivers (PRINIVIL,Z 1-22 by mouth ity of ESTRIL) 20 09:36: daily. [place] mg tablet 18 Medical Branch SENNOSIDES 2012-09 Yes Take by [facility] ers (SENOKOT 1-22 mouth. ity of ORAL) 09:36: Indication [place] [address] s: take 2 Medical tabs by Branch mouth at bedtime amLODIPine 2012-09 Yes 10mg Take 10 mg U nivers (NORVASC) 1-22 by mouth ity of 10 mg 09:36: daily. [place] tablet Medical Branch latanoprost 2012-09 Yes 1[drp] 1 Drop Un jewels (XALATAN) 1-22 every ity of 0.005 % 09:36: evening. [place] ophthalmic Medical drops Branch risperidone 2012-09 Yes 4mg Take 4 mg U nivers (RISPERDAL) 1-22 by mouth ity of 3 mg tablet 09:36: at [place] [address] bedtime. Medical Branch acetaminoph 2012-09 Yes Take by Uni vers en (MAPAP) 1-22 mouth ity of 325 [...] by mouth ity of THIAGO) 09:36: daily. [place] tablet 18 Medical Branch traZODONE 2012-09 Yes 50mg Take 50 mg Un jewels (DESYREL) -22 by mouth ity of 50 mg 09:36: at [place] tablet 18 bedtime. Medical Branch magnesium 2012-09 Yes 30mL Take 30 mL Un jewels hydroxide 09-22 by mouth ity of (MILK OF 09:36: daily. [place] MAGNESIA) 18 Medical 400 mg/5 mL [place] suspension insulin 2012-09 Yes 13U inject 13 [facility] rs glargine 1-22 Units ity of (LANTUS) 09:36: under the [facility] 100 unit/mL 18 skin at Medic al injection bedtime. Branch venlafaxine 2012-09 Yes 150mg Take 150 U nivers XR (EFFEXOR 1-22 mg by ity of XR) 150 mg 09:36: mouth [place] 24 hr 18 daily with Medical capsule breakfast. Branch brimonidine 2012-09 Yes 1[drp] Place 1 U nivers (ALPHAGAN) 1-22 Drop in ity of 0.2 % 09:36: both eyes [place] ophthalmic 2 (two) Medica l solution times [place] daily. lisinopril 2012-09 Yes 20mg Take 20 mg U nivers (PRINIVIL,Z 1-22 by mouth ity of ESTRIL) 20 09:36: daily. [place] mg tablet 18 Medical Branch SENNOSIDES 2012-09 Yes Take by Univ ers (SENOKOT 1-22 mouth. ity of ORAL) 09:36: Indication [place] 18 s: take 2 Medical tabs by Branch mouth at bedtime amLODIPine 2013-1 Yes 10mg Take 10 mg U nivers (NORVASC) -22 by mouth ity of 10 mg 09:36: daily. [place] tablet 18 Medical Branch latanoprost 2012-09 Yes 1[drp] 1 Drop Un jewels (XALATAN) -22 every ity of 0.005 % 09:36: evening. [place] ophthalmic 18 Medical drops Branch risperidone 2012-09 Yes 4mg Take 4 mg U nivers (RISPERDAL) -22 by mouth ity of 3 mg tablet 09:36: at [place] [address] bedtime. Medical Branch acetaminoph 2012-09 Yes Take by Uni vers en (MAPAP) -22 mouth ity of 325 mg 09:36: every 4 [place] tablet 18 (four) Medical hours as Branch needed. ALPRAZolam 2012-09 Yes .5mg Take 0.5 Uni vers (XANAX) 0.5 1-22 mg by ity of mg tablet 09:36: mouth 2 [place] 18 (two) Medical times Branch daily. Also takes one at bedtime multivitami 2012-09 Yes 1{tbl} Take 1 Tab Univers n (TAB A 1-22 by mouth ity of THIAGO) 09:36: daily. [place] tablet 18 Medical Branch traZODONE 2012-09 Yes 50mg Take 50 mg Un jewels (DESYREL) 22 by mouth ity of 50 mg 09:36: at [place] tablet 18 bedtime. Medical Branch magnesium 2012-09 Yes 30mL Take 30 mL Un jewels hydroxide -22 by mouth ity of (MILK OF 09:36: daily. [place] MAGNESIA) Medical 400 mg/5 mL Branch suspension insulin 2012-09 Yes 13U inject 13 Unive rs glargine 1-22 Units ity of (LANTUS) 09:36: [place] 100 unit/mL 18 skin at Medic al injection bedtime. Branch venlafaxine 2012-09 Yes 150mg Take 150 U nivers XR (EFFEXOR 1-22 mg by ity of XR) 150 mg 09:36: mouth [place] 24 hr 18 daily with Medical capsule breakfast. Branch brimonidine 2012-09 Yes 1[drp] Place 1 U nivers (ALPHAGAN) -22 Drop in ity of 0.2 % 09:36: both eyes [place] ophthalmic 2 (two) Medica l solution times Branch daily. lisinopril 2012-09 Yes 20mg Take 20 mg U nivers (PRINIVIL,Z 22 by mouth ity of ESTRIL) 20 09:36: daily. [place] mg tablet 18 Medical Branch SENNOSIDES 2012-09 Yes Take by [facility] ers (SENOKOT -22 mouth. ity of ORAL) 09:36: Indication [place] [address] s: take 2 Medical tabs by Branch mouth at bedtime amLODIPine 2012-09 Yes 10mg Take 10 mg U nivers (NORVASC) 22 by mouth ity of 10 mg 09:36: daily. [place] tablet 18 Medical Branch latanoprost 2012-09 Yes 1[drp] 1 Drop Un jewels (XALATAN) -22 every ity of 0.005 % 09:36: evening. [place] ophthalmic Medical drops Branch Levothyroxi 2012-09 Yes Take by Uni vers ne 22 mouth ity of (TIROSINT) 09:36: daily. [place] [address] mcg Cap Medical Branch amiodarone 2012-09 Yes 200mg Take 200 Un jewels (CORDARONE) 1-22 mg by ity of 200 mg 09:36: mouth [place] tablet 17 daily. Medical Branch Levothyroxi 2012-09 Yes Take by Uni vers ne 09-22 mouth ity of (TIROSINT) 09:36: daily. [place] 25 mcg Cap Medical Branch amiodarone 2012-09 Yes 200mg Take 200 Un jewels (CORDARONE) 1-22 mg by ity of 200 mg 09:36: mouth [place] tablet 17 daily. Medical Branch Levothyroxi 2012-09 Yes Take by Uni vers ne 22 mouth ity of (TIROSINT) 09:36: daily. [place] 25 mcg Cap 17 Medical Branch amiodarone 2012-09 Yes 200mg Take 200 Un jewels (CORDARONE) 1-22 mg by ity of 200 mg 09:36: mouth [place] tablet 17 daily. Medical Branch Levothyroxi 2012-09 Yes Take by Uni vers ne -22 mouth ity of (TIROSINT) 09:36: daily. [place] 25 mcg Cap Medical Branch amiodarone 2012-09 [...] 20 7-19 ity of mg tablet 00:00: [place] 00 Medical Branch testosteron Yes 100mg 0.5 mL [...] Branch HUMALOG 100 Yes Univer s unit/mL - ity of injection 00:00: Medical Branch HUMALOG [...] mouth ity of 00:00: daily. Medical Branch BusPIRone BusPIRone Yes Jenna 1 tablet Common HCl HCl [place] Spirit - [facility] Levothyroxi Levothyroxi Yes Jenna 1 tablet Common ne Sodium ne Sodium Millender on an Spirit empty - CHI stomach in [facility] Venlafaxine Venlafaxine Yes Jenna TAKE 1 Common HCl HCl [place] TABLET BY Spiri t MOUTH - [facility] EVERY DAY [facility] Furosemide Furosemide Yes Jenna 1 tablet Common Millender [facility] BD Pen BD Pen Yes Jenna INJECT Common Needle Disha Needle Disha Millender USING Spirit U/F U/F INSULIN D. - [facility] Divalproex Divalproex Yes Jenna as Co mmon Sodium ER Sodium ER Millender directed [facility] Vitamin C Vitamin C Yes Jenna 1 tablet Common Millender [facility] Docusate Docusate Yes Jenna 2 capsule C ommon Sodium Sodium Millender as needed S pirit [facility] Xarelto Xarelto Yes Jenna 20 MG PO Comm on Mill[place] DAILY [facility] Baclofen Baclofen Yes Jenna TK 1 T PO C ommon [place] Q 8 H PRN. Spir it - CHI [facility] Lasix Lasix Yes Jenna 40 MG PO Common [place] DAILY [facility] Tresiba [facility] Yes Jenna 70 units Comm on FlexTouch FlexTouch Millender [facility] Amiodarone Amiodarone Yes Jenna TAKE 1 Common HCl HCl [place] TABLET BY Spiri t MOUTH - CHI EVERY DAY. [facility] Risperidone Risperidone Yes Jenna TAKE 3 Common [place] TABLETS BY Spir it MOUTH ONCE - CHI A DAY. [facility] Symbicort Symbicort Yes Jenna inhale 2 Common [place]ender puffs po Spirit bid. [facility] Amlodipine Amlodipine Yes Jenna TAKE 1 Common Besylate Besylate [place]ender TABLET BY Spirit MOUTH - CHI DAILY [facility] Lisinopril Lisinopril Yes Jenna 1 tablet Common Millender [facility] Aspirin Aspirin Yes Jenna 1 tablet Comm on Millender [facility] Betaxolol Betaxolol Yes Jenna 1 drop Co mmon HCl HCl Millender into Spirit affected - CHI eye [facility] Lisinopril Lisinopril Yes Jenna 1 tablet Common Millender [facility] Clonidine Clonidine Yes Jenna TAKE 1 Co mmon HCl HCl [place] TABLET BY Spiri t MOUTH - CHI TWICE St DAILY [facility] Atorvastati Atorvastati Yes Jenna TAKE 1 Common n Calcium n Calcium [place] TABLET BY Spirit MOUTH - CHI EVERY St NIGHT AT [facility] Januvia Januvia Yes Jenna TAKE 1 Common [place] TABLET BY Spiri t MOUTH - CHI DAILY [facility] Venlafaxine Venlafaxine Yes Jenna 1 capsule Common HCl ER HCl ER Millender with food S pirit [facility] Latanoprost Latanoprost Yes Jenna INT 1 GTT Common Millender IN OU QHS. Spir it - CHI [facility] Trazodone Trazodone Yes Jenna TK 1 T PO Common HCl HCl Millender QHS. [facility] Procedures Procedure Date / Time Performed Performing Clinician Sour e CT LUMBAR SPINE WO 2022-01-14 14:48:02 Andrew Oviedo [facility] CONSENT/REFUSAL FOR 2022-01-14 14:08:22 Doctor Unassigned, No [facility] DIAGNOSIS AND [facility] Medical Branch TREATMENT ASSIGNMENT OF BENEFITS 2022-01-14 14:07:33 Doctor Unassigned, No [facility] XR BONE SURVEY LTD 2021-12-28 15:13:00 Jj Rodriguez [facility] ASSIGNMENT OF BENEFITS 2021-12-28 13:11:23 Doctor Unassigned, No [facility] Encounters Start End Encounter Admission Attending Care Care Encounter Source Date/Time Date/Time Type Type Clinicians Facility Department ID 2021-11-30 Outpatient [facility] [id number] [place] 15:40:57 [id number] [facility] 2021-11-28 Outpatient [facility] [id number] [place] 14:03:42 [id number] [facility] 2021-09-26 Outpatient [place], [facility]ML[facility] [id number] Common 10:59:02 Jenna [id number] [facility] 2022-01-14 2022-01-14 Outpatient R IVELISSE [facility] [id number] Univers 09:07:59 23:59:00 ANDREW ity [facility] 2022-01-14 2022-01-14 [facility] [id number] Univers 09:07:59 23:59:00 Encounter Andrew Jayden ANGLENASIMA [id number] ity [facility] [id number] [facility] [id number] [facility] 801 Branch 2022-01-14 2022-01-14 [id number] Univers 00:00:00 00:00:00 ANDREW [id number] ity [facility] 2021-12-28 2021-12-28 [facility] [id number] Univers 09:51:42 23:59:00 Encounter Jj ROBIN [id number] ity [facility] [id number] [facility] [id number] [facility] 807 Branch 2021-12-28 2021-12-28 [facility] [id number] Univers 09:55:00 09:55:00 JJ [id number] ity [facility] 2021-12-28 2021-12-28 [facility] [id number] Univers 08:13:17 09:50:00 Encounter Andrew NEVAREZNASIMA [id number] ity [facility] [id number] [facility] [id number] [facility] 804 Branch 2021-12-28 2021-12-28 [facility] [id number] Univers 00:00:00 09:50:00 ANDREW ity [facility] 2021-12-28 2021-12-28 Orders Doctor HOPE [id number] Univers 00:00:00 00:00:00 Only Unassigned, FIDE [id number] [facility]y [facility] [id number] [place] as [id number] [place] [id number] Branch 2019-09-23 2019-09-23 Outpatient [facility] [place] [id number] Common 15:09:00 15:09:[address] [facility] 2019-09-09 2019-09-09 [place] [id number] Common 11:30:00 11:30:[address] [facility] 2019-08-05 2019-08-05 [place] [id number] Common 14:57:00 14:57:[address] [facility] 2019-08-02 2019-08-02 Out[place] [id number] Common 14:24:00 14:24:[address] [facility] 2019-07-26 2019-07-26 [place] [id number] Common 13:14:00 13:14:[address] [facility] 2019-07-20 2019-07-20 [facility] [place] [id number] Common 09:08:00 09:08:[address] [facility] 2019-07-14 2019-07-14 [place] [id number] Common 15:20:00 15:20:[address] [facility] 2019-06-24 2019-06-24 [facility] [id number] Common 11:00:00 11:00:[address] [facility] 2019-06-01 2019-06-01 Outpatient [place] [id number] Common 12:18:00 12:18:[address] [employer] [address] Spir it [facility] 2019-05-31 2019-05-31 [place]patient [facility] [place] [id number] Common 14:36:00 14:36:[address] [facility] 2019-05-27 2019-05-27 [facility] [id number] Common 10:30:00 10:30:[address] [facility] 2019-04-12 2019-04-12 [facility] [id number] Common 14:45:00 14:45:[address] [facility] 2019-03-22 2019-03-22 [facility] [id number] Common 10:30:00 10:30:[address] [facility] 2019-03-08 2019-03-08 [facility] [id number] Common 14:45:00 14:45:[address] [facility] 2019-03-02 2019-03-02 [facility] [id number] Common 10:30:00 10:30:[address] [facility] 2018-12-28 2018-12-28 [facility] [id number] Common 15:15:00 15:15:[address] [facility] 2018-12-10 2018-12-10 Out[facility] [id number] Common 14:52:00 14:52:[address] [facility] 2018-11-19 2018-11-19 [facility] [id number] Common 11:30:00 11:30:[address] [facility] 2018-10-22 2018-10-22 [facility] [id number] Common 11:45:00 11:45:[address] [facility] 2018-09-18 2018-09-18 [facility] [id number] Common 11:48:00 11:48:[address] [facility] 2018-09-16 2018-09-16 Outpatient Toribio Garza [id number] Common 15:42:00 15:42:00 t [facility] Results This patient has no known results.
[2022-04-03 20:25] LABS: Absolute Lymphocytes (CBC) 0.7 K/uL (0.7-4.9); Hematocrit 31.3 % (39.6-49.0); Lymphocytes % 12.9 % (15.3-44.8); MCV 89.7 fL (80-100); MPV 9.6 fL (7.6-11.3); RBC Red Blood Cell Count 3.49 M/uL (4.33-5.43)
[2022-04-03 20:28] LABS: Protime INR 1.51
[2022-04-03 20:29] LABS: Albumin 2.6 g/dL (3.4-5.0); Bilirubin Total 0.2 mg/dL (0.2-1.0); Potassium 4.2 mmol/L (3.5-5.1); Protein, Total 6.4 g/dL (6.4-8.2)
[2022-04-03 20:53] LABS: Arterial Blood Carboxyhemoglob 1.6 % (0-1.5); Blood Gas Oxyhemoglobin 95.7 % (94-97); Blood O2 Saturation 98.5 % (92-98.5)
--- NOTE | 2022-04-03 20:55 | RAD REPORT ---
EXAM DESCRIPTION: RAD - Chest Single View - 04/03/2022 8:07 pm CLINICAL HISTORY: AMS, lethargy COMPARISON: Portable January 27, portable January 25, portable January 2021 TECHNIQUE: AP portable chest image was obtained 04/03/2022 8:07 pm . FINDINGS: Diffusely prominent interstitial pattern is present and has been seen on numerous prior ex aminations. No one area consolidation seen. Mild cardiomegaly is present with central vascular engorg ement. No measurable pleural effusion and no pneumothorax. No acute bony abnormality seen. No acute a ortic findings suspected. IMPRESSION: Pulmonary edema pattern is present similar to slightly less pronounced than seen on January 27.
--- NOTE | 2022-04-03 21:01 | EDPHYS ---
Physician Documentation [facility] Name: Michael Duncan Age: 76 yrs Sex: Male : 1945 Arrival Date: 04/03/2022 Time: 19:38 Bed 16 Private MD: ED Physician Sam Arguelles HPI: 04/03 19:47 This 76 yrs old Male presents to ER via Unassigned with complaints of AMS. rn 19:47 The patient presents with decreased mental status, decreased responsiveness. Onset: The rn symptoms/episode began/occurred at an unknown time. Possible causes: unknown. Associated signs and symptoms: Pertinent positives: weakness, Pertinent negatives: abdominal pain, chest pain, headache. Current symptoms: In the emergency department the patient's symptoms are unchanged from the initial presentation. The patient has experienced similar episodes in the past. The patient has not recently seen a physician. EMS reports AMS and generalized weakness, unclear onset, patient denies pain, EMS reports low O2 sat, end tidal 60s but other vitals stable. . Historical: - Allergies: 21:29 caffiene; sm5 21:29 Codeine; sm5 - PMHx: 21:29 Bipolar disorder; CHF; Hypertension; Hyperlipidemia; High Cholesterol; Diabetes - sm5 NIDDM; Depression; Dementia; COPD; - Social history:: Smoking status: unknown. - Family history:: not pertinent. - Hospitalizations: : No recent hospitalization is reported. ROS: 19:47 Constitutional: Negative for fever, chills, and weight loss, Eyes: Negative for injury, rn pain, redness, and discharge, Neck: Negative for injury, pain, and swelling, Cardiovascular: Negative for chest pain, palpitations, and edema, Respiratory: + cough Abdomen/GI: Negative for abdominal pain, nausea, vomiting, diarrhea, and constipation, MS/Extremity: Negative for injury and deformity, Skin: Negative for injury, rash, and discoloration, Neuro: Negative for headache, numbness, tingling, and seizure. Exam: 19:47 Constitutional: This is a well developed, well nourished patient who is somnolent rn Head/Face: Normocephalic, atraumatic. Cardiovascular: Regular rate and irregular rhythm. No pulse deficits. Respiratory: No increased work of breathing, no retractions or nasal flaring. Abdomen/GI: Soft, non-tender Skin: Warm, dry MS/ Extremity: Pulses equal, no cyanosis. Neuro: Somnolent but oriented to person/place/time. Moves all 4 extremities. Seems confused, keeps trying to take mask off. 19:58 ECG was reviewed by the Attending Physician. rn Vital Signs: 19:52 BP 131 / 72; Pulse 87; Resp 22 S; Temp 98.6(A); Pulse Ox 98% on 3 lpm NC; Weight 123.5 bb kg (M); Height 6 ft. 0 in. (182.88 cm) (R); 21:30 BP 137 / 66; Pulse 68; Resp 20; Pulse Ox 93% on BiPAP; sm5 19:52 Body Mass Index 36.93 (123.50 kg, 182.88 cm) bb MDM: 19:38 Patient medically screened. rn 20:59 Differential Diagnosis: electrolyte abnormality, pneumonia, volume depletion, COPD with rn hypercapnia . Data reviewed: vital signs, nurses notes, lab test result(s), EKG, radiologic studies, plain films, and as a result, I will admit patient. Counseling: I had a detailed discussion with the patient and/or guardian regarding: the historical points, exam findings, and any diagnostic results supporting the discharge/admit diagnosis, lab results, radiology results, the need for further work-up and treatment in the hospital. Response to treatment: the patient's symptoms have mildly improved after treatment, and as a result, I will admit patient. Admission orders: after a detailed discussion of the patient's condition and case, the admit orders are written by me. ED course: Pt with hypercapnic respiratory failure, respiratory acidosis, improved on BiPAP, will admit to hospitalist service for further care. . 04/03 19:42 Order name: Blood Culture Adult (2) rn 04/03 19:42 Order name: CBC with Diff; Complete Time: 20:58 rn 04/03 19:42 Order name: CMP; Complete Time: 20:58 rn 04/03 19:42 Order name: Lactate; Complete Time: 20:58 rn 04/03 19:42 Order name: Protime (+inr); Complete Time: 20:58 rn 04/03 19:42 Order name: Ptt, Activated; Complete Time: 20:58 rn 04/03 19:42 Order name: Urine Culture rn 04/03 19:42 Order name: Urine Microscopic Only; Complete Time: 21:54 rn 04/03 19:42 Order name: ABG; Complete Time: 20:58 rn 04/03 19:42 Order name: SARS-COV-2 RT PCR (Document "Date of Onset" if Symptomatic); Complete Time: rn 21:54 04/03 19:42 Order name: Flu; Complete Time: 20:58 rn 04/03 19:42 Order name: Strep; Complete Time: 20:58 rn 04/03 20:42 Order name: Throat Culture EDFL 04/03 21:55 Order name: BNP la1 04/03 19:42 Order name: Chest Single View XRAY; Complete Time: 20:58 rn 04/03 19:42 Order name: Accucheck; Complete Time: 21:14 rn / 19:42 Order name: Cardiac monitoring; Complete Time: 20:14 rn / 19:42 Order name: EKG - Nurse/Tech; Complete Time: 20:14 rn 04/03 19:42 Order name: IV Saline Lock - Large Bore; Complete Time: 20:14 rn 04/03 19:42 Order name: Labs collected and sent; Complete Time: 20:14 rn / 19:42 Order name: O2 Per Protocol; Complete Time: 20:14 rn 04/03 19:42 Order name: O2 Sat Monitoring; Complete Time: 20:14 rn 04/03 19:42 Order name: Urine Dipstick-Ancillary (obtain specimen); Complete Time: 20:49 rn 04/03 21:55 Order name: Troponin High Sensitivity la1 04/03 22:00 Order name: Urine Dipstick-Ancillary; Complete Time: 22:08 [facility] 04/03 22:26 Order name: ABG la1 EC:58 Rate is 87 beats/min. Rhythm is irregularly irregular. QRS [place] is Normal. MD interval rn is normal. QRS interval is normal. QT interval is normal. No Q waves. T waves are Normal. No ST changes noted. Clinical impression: Atrial Fibrillation. Interpreted by me. Reviewed by me. Administered Medications: 23:14 Drug: Lasix (furosemide) 40 mg Route: IVP; Site: right forearm; [facility] 04/04 00:02 Follow up: Response: No adverse reaction [facility] 04/03 23:14 Drug: SOLU-Medrol (methylPrednisoLONE) 125 mg Route: IVP; Site: right forearm; 5 04/04 00:02 Follow up: Response: No adverse reaction [facility] 04/03 23:14 Drug: Albuterol - atroVENT (ipratropium) (3:1) (2.5 mg - 0.5 mg) 3 ml Route: Nebulizer; 5 04/04 00:02 Follow up: Response: No adverse reaction [facility] Disposition: 04/03 20:59 Critical Care:. rn Disposition Summary: 04/03/22 21:00 Hospitalization Ordered Hospitalization Status: Inpatient Admission rn Provider: Kris Arguelles rn Condition: Stable rn Problem: new rn Symptoms: have improved rn Bed/Room Type: Standard rn Location: Telemetry/MedSurg (Inpatient)(04/03/22 22:42) cg Room Assignment: [facility](04/03/22 22:44) cg Diagnosis - Acute respiratory failure with hypercapnia rn - COPD/ Chronic obstructive pulmonary disease, unspecified rn - Altered mental status, unspecified rn Forms: - Medication Reconciliation Form rn - SBAR form biology internship time excluding procedures: 20:59 Critical care time: Bedside Care: 35 minutes, Consultation: 5 minutes. Total time: 40 rn minutes Signatures: Dispatcher [employer] EDMS Sam Arguelles MD MD rn Attema, Lee, FNP-C [id number] Ashli Michael RN RN Brynn Barone, RN RN 5 Corrections: (The following items were deleted from the chart) 19:58 19:47 Constitutional: This is a well developed, well nourished patient who is somnolent rn Head/Face: Normocephalic, atraumatic. Cardiovascular: Regular rate and rhythm. No pulse deficits. Respiratory: No increased work of breathing, no retractions or nasal flaring. Abdomen/GI: Soft, non-tender Skin: Warm, dry MS/ Extremity: Pulses equal, no cyanosis. Neuro: Somnolent but oriented to person/place/time. Moves all 4 extremities. Seems confused, keeps trying to take mask off. rn 21:59 21:00 Telemetry/MedSurg (Inpatient) rn cg 21:59 21:00 rn cg 22:42 21:59 RUST ER HOLD cg cg 22:42 21:59 ERHOLD- cg cg 22:44 22:42 cg cg
--- NOTE | 2022-04-03 21:01 | ER ---
Nurse's Notes [facility] Name: Michael Duncan Age: 76 yrs Sex: Male : 1945 Arrival Date: 04/03/2022 Time: 19:38 Bed 16 Private MD: Diagnosis: Acute respiratory failure with hypercapnia;COPD/ Chronic obstructive pulmonary disease, unspecified;Altered mental status, unspecified Presentation: 04/03 19:52 Chief complaint: EMS states: they were toned out to [facility] for report bb of pt who was shaky and lethargic on arrival pt O2 sats were in the 80s. Coronavirus screen: chills, difficulty breathing, Client presents with at least one sign or symptom that may indicate coronavirus-19. Ebola Screen: No symptoms or risks identified at this time. Initial Sepsis Screen: Does the patient meet any 2 criteria? RR > 20 per min. Altered Mental Status. Yes Does the patient have a suspected source of infection? Yes: Other: hypoxia. Risk Assessment: Do you want to hurt yourself or someone else? Patient reports no desire to harm self or others. Onset of symptoms was April 03, 2022. 19:52 Method Of Arrival: EMS: [facility] bb 19:52 Acuity: SHAZIA 2 bb 19:55 Care prior to arrival: Medication(s) given: Normal saline infusion, 250 mLs IV bb initiated. 20 GA, in the right forearm, Oxygen administered. via a non-rebreather mask. Historical: - Allergies: 21:29 caffiene; sm5 21:29 Codeine; sm5 - PMHx: 21:29 Bipolar disorder; CHF; Hypertension; Hyperlipidemia; High Cholesterol; Diabetes - sm5 NIDDM; Depression; Dementia; COPD; - Social history:: Smoking status: unknown. - Family history:: not pertinent. - Hospitalizations: : No recent hospitalization is reported. Screenin:49 Abuse screen: Denies threats or abuse. Denies injuries from another. Nutritional sm5 screening: No deficits noted. Tuberculosis screening: No symptoms or risk factors identified. Fall Risk None identified. Assessment: 20:15 General: Appears in no apparent distress. Behavior is cooperative. Pain: Denies pain. sm5 Neuro: Level of Consciousness is awake. Cardiovascular: Capillary refill < 3 seconds Patient's skin is warm and dry. Rhythm is atrial fibrillation. Respiratory: Airway is patent Trachea midline Respiratory effort is even. GI: Abdomen is obese. 22:00 Reassessment: No changes from previously documented assessment. Patient and/or family [facility] updated on plan of care and expected duration. Pain level reassessed. Vital Signs: 19:52 BP 131 / 72; Pulse 87; Resp 22 S; Temp 98.6(A); Pulse Ox 98% on 3 lpm NC; Weight 123.5 bb kg (M); Height 6 ft. 0 in. (182.88 cm) (R); 21:30 BP 137 / 66; Pulse 68; Resp 20; Pulse Ox 93% on BiPAP; [facility] 19:52 Body Mass Index 36.93 (123.50 kg, 182.88 cm) ED Course: 19:38 Patient arrived in ED. rn 19:38 Sam Arguelles MD is Attending Physician. rn 19:52 Arm band placed on Patient placed in an exam room, on a stretcher, on oxygen, on bb vehicle monitor technician, on pulse oximetry. Patient RT at bedside for Bipap. EKG completed in triage. Results shown to MD. 19:55 Triage completed. bb 20:09 Chest Single View XRAY In Process Unspecified. EDMS 20:16 SARS-COV-2 RT PCR (Document "Date of Onset" if Symptomatic) Sent. rn 20:16 Flu Sent. rn 20:16 Strep Sent. rn 20:18 Brynn Zavala, ALTAF is Primary Nurse. [facility] 20:49 Urine Culture Sent. [facility] 20:49 Urine Microscopic Only Sent. [facility] 20:49 Straight cath inserted, using sterile technique, 16 Fr. Specimen obtained. Patient [facility] tolerated well. 21:00 Kris Arguelles MD is Hospitalizing Provider. rn 23:36 Patient has correct armband on for positive identification. Bed in low position. Call [facility] light in reach. Side rails up X2. Client placed on continuous cardiac and pulse oximetry monitoring. NIBP monitoring applied. 04/04 00:01 No provider procedures requiring assistance completed. Patient admitted, IV remains in [facility] place. Administered Medications: 04/03 23:14 Drug: Lasix (furosemide) 40 mg Route: IVP; Site: right forearm; [facility] 04/04 00:02 Follow up: Response: No adverse reaction [facility] 04/03 23:14 Drug: SOLU-Medrol (methylPrednisoLONE) 125 mg Route: IVP; Site: right forearm; 5 04/04 00:02 Follow up: Response: No adverse reaction [facility] 04/03 23:14 Drug: Albuterol - atroVENT (ipratropium) (3:1) (2.5 mg - 0.5 mg) 3 ml Route: Nebulizer; 5 04/04 00:02 Follow up: Response: No adverse reaction [facility] Medication: 04/03 23:36 VIS not applicable for this client. [facility] Outcome: 21:00 Decision to Hospitalize by Provider. rn 04/04 00:01 Admitted to Med/surg accompanied by tech, via stretcher, with oxygen, with chart, [facility] Report called to [place] Condition: stable Instructed on the need for admit. 00:15 Patient left the ED. [facility] Signatures: Dispatcher [employer] Yolanda Olivera RN RN bb Nieto, Roman, MD MD rn Mazur, Sarah, RN RN [facility]
[2022-04-03 21:19] LABS: Urine Bacteria None Seen /HPF (<20)
[2022-04-03 21:59] LABS: Urine Blood 2+ (Negative); Urine Glucose Negative (Negative); Urine Protein Trace (Negative); Urine pH 5.5 (5.0-7.0)
--- NOTE | 2022-04-03 22:37 | P.HP ---
Certification for Inpatient Patient admitted to: Inpatient With expected LOS: >2 Midnights Patient will require the following post-hospital care: None Practitioner: I am a practitioner with admitting privileges, knowledge of patient current condition, hospital course, and medical plan of care. Services: Services provided to patient in accordance with Admission requirements found in Title 42 Section 412.3 of the Code of Federal Regulations Patient History Date of Service: 04/03/22 History of Present Illness: 76-year-old male with history of COPD on home oxygen at shelter, chronic diastolic congestive heart failure, atrial fibrillation on chronic anticoagulation, bipolar disorder, dementia, obesity, hypothyroidism, insulin- dependent diabetes and hyperlipidemia presents emergency room for altered mental status. Patient resides at [facility] they noted that he was shaky and lethargic with a saturations in the 80s. ABG was obtained in the ER upon arrival which demonstrated hypercapnic respiratory failure related to COPD/CHF, his other labs were significant for normocytic anemia, mild FAVIO COVID- negative chest x-ray demonstrates pulmonary edema bilaterally, mild cardiomegaly. Patient was given dose of IV Lasix as well as Solu-Medrol and nebulizer treatment in the ED and placed on BiPAP. Patient's mental status has improved greatly he is currently oriented x3 we will need to admit for acute on chronic hypercapnic/hypoxic respiratory failure, COPD/CHF exacerbation. Allergies caffeine Allergy (Verified 03/12/19 22:27) Anaphylaxis codeine Allergy (Verified 03/12/19 22:27) Anaphylaxis Home Medications: ALPRAZolam [Xanax*] 0.5 mg PO Q6HP PRN 02/15/21 Amiodarone HCl [Cordarone*] 200 mg PO DAILY 02/15/21 Atorvastatin Calcium 10 mg PO BEDTIME 02/15/21 Brimonidine/Dorzolamide/Pf [Brimonidine 0.15%-Dorzolam 2%] 1 gtt EACH EYE BID 02/15/21 Buspirone HCl [Buspar*] 10 mg PO TID 02/15/21 Divalproex Sodium [Depakote ER] 625 mg PO BID 02/15/21 Docusate [Colace Cap*] 200 mg PO BID 02/15/21 Doxepin HCl [Sinequan*] 25 mg PO BEDTIME 02/15/21 Furosemide [Lasix*] 40 mg PO DAILY 02/15/21 Insulin Degludec [Tresiba Flextouch U-100] 55 unit SQ BEDTIME 02/15/21 Levalbuterol HCl [Xopenex] 3 ml IH Q8HR 02/15/21 Levothyroxine [Synthroid*] 100 mcg PO [id number] 02/15/21 Magnesium Hydroxide [Milk of Magnesia] 30 ml PO DAILY PRN 02/15/21 Memantine HCl [Namenda] 10 mg PO BID 02/15/21 Polyethylene Glycol 3350 [Miralax] 17 gm PO DAILY 02/15/21 Rivaroxaban [Xarelto] 20 mg PO DAILY 02/15/21 Sitagliptin Phosphate [Januvia*] 100 mg PO DAILY 02/15/21 Timolol 0.5% Opth [Timoptic 0.5% Opth*] 1 drops EACH EYE BID 02/15/21 Tramadol HCl [Ultram] 50 mg PO Q6HR PRN 02/15/21 Venlafaxine HCl 75 mg PO DAILY 02/15/21 Zinc 50 mg PO DAILY 02/15/21 cloNIDine HCL [Clonidine HCl] 0.1 mg PO BID 02/15/21 Albuterol Sulfate [Albuterol Sulfate 0.083% Neb Soln] 2.5 mg IH Q8HP PRN 01/26/22 Arformoterol Tartrate [Brovana] 15 mcg IH BID 01/26/22 Carvedilol [Coreg] 12.5 mg PO BID 01/26/22 Guaifenesin [Cough Syrup] 10 ml PO Q6HP PRN 01/26/22 Melatonin 15 mg PO BEDTIME 01/26/22 Potassium Chloride [Klor-Con M20] 20 meq PO DAILY 01/26/22 acetaZOLAMIDE [Diamox*] 250 mg PO DAILY 01/26/22 lisinopriL [Lisinopril] 5 mg PO DAILY 01/26/22 Fluticasone/Umeclidin/Vilanter [Trelegy Ellipta 100-62.5-25] 1 each IH DAILY 30 Days #30 blst.w.dev 01/29/22 predniSONE [Deltasone*] 10 mg PO BID #20 tab 01/29/22 - Past Medical/Surgical History Diabetic: Yes -: Severe COPD, Pt has a BIPAP -: DM NIDDM -: HTN -: High cholesterol -: Bipolar -: Chronic diastolic congestive heart failure -: Heart stents Psychosocial/ Personal History: [facility] resident - Family History Mother -: Stroke Notes: Stroke - Social History Smoking Status: Unknown if ever smoked Alcohol use: No CD- Drugs: No Caffeine use: Yes Place of Residence: Home Review of Systems 10-point ROS is otherwise unremarkable Respiratory: Shortness of Breath, As per HPI Neurological: Confusion Physical Examination - Physical Exam General: Alert, In no apparent distress, Oriented x2, Obese HEENT: Atraumatic, PERRLA, Mucous membr. moist/pink, EOMI, Sclerae nonicteric Neck: Supple, 2+ carotid pulse no bruit, No LAD, Without JVD or thyroid abnormality Respiratory: Diminished, Expiratory wheezes Cardiovascular: Regular rate/rhythm, Normal S1 S2, Edema Capillary refill: <2 Seconds Gastrointestinal: Normal bowel sounds, No tenderness Musculoskeletal: No tenderness Integumentary: No rashes Neurological: Normal speech, Normal strength at 5/5 x4 extr, Normal tone, Normal affect - Studies Laboratory Data (last 24 hrs) 04/03/22 20:03: PT 16.7 H, INR 1.51, APTT 35.8 04/03/22 20:03: Sodium 138, Potassium 4.2, BUN 30 H, Creatinine 1.35 H, Glucose 165 H, Total Bilirubin 0.2, AST 9 L, ALT 11 L, Alkaline Phosphatase 69 04/03/22 20:03: WBC 5.6, Hgb 9.7 L, Hct 31.3 L, Plt Count 124 L D Microbiology Data (last 24 hrs): 04/03/22 20:11 Nasopharnyx Influenza Type A Antigen Screen - Final 04/03/22 20:11 Nasopharnyx Influenza Type B Antigen Screen - Final 04/03/22 20:11 Throat Group A Streptococcus Rapid Screen - Final Assessment and Plan - Plan Assessment: Acute on chronic hypercapnic/hypoxic respiratory failure COPD with exacerbation Acute on chronic diastolic congestive heart failure Atrial fibrillation on chronic anticoagulation therapy Diabetes mellitus type 2insulin-dependent Hypertension Hyperlipidemia Bipolar disorder/dementia Hypothyroidism Plan: Acute on chronic hypercapnic/hypoxic respiratory failure: Continue BiPAP, pulmonology consult likely related to COPD, CHF as well as morbid obesity/obesity hypoventilation. Continue treatment with IV steroids, as needed nebulizer treatments, IV Lasix. Patient reportedly has BiPAP machine at nursing facility will need to confirm this. Wean off BiPAP as tolerated mental status has improved significantly thus far. COPD with exacerbation: Continue with IV steroids, ICS, as needed nebulizer treatments. Pulmonology consult in place. Acute on chronic diastolic congestive heart failure: Patient on oral Lasix at home chest x-ray shows some pulmonary edema we will provide with IV diuresis this evening as well as restarting home medications. Atrial fibrillation on chronic anticoagulation therapy: Monitor on telemetry, continue Xarelto, amiodarone. Rate controlled. Diabetes mellitus type 2insulin-dependent: Patient takes Tresiba 55 units at night will provide long-acting insulin start at 30 units increase as necessary will evaluate sliding scale. Hypertension: Continue home medications Hyperlipidemia: Continue home medications Bipolar disorder/dementia: Continue home medications Hypothyroidism: Continue home medications DVT PPX: Continue Xarelto Code status: Full Discharge Plan: Home Plan to discharge in: 72 Hours - Advance Directives Does patient have a Living Will: No Does patient have a Durable POA for Healthcare: No - Code Status/Comfort Care Code Status Assessed: Yes (Full code) Critical Care: No Time Spent Managing Pts Care (In Minutes): 70
[2022-04-03 22:40] LABS: Troponin High Sensitivity 25.1 pg/mL (<58.9)
[2022-04-03 22:43] LABS: Arterial Blood Carboxyhemoglob 1.7 % (0-1.5); Blood Gas Oxyhemoglobin 91.2 % (94-97); Blood O2 Saturation 93.8 % (92-98.5)
[2022-04-03] MEDS ORDERED: METHYLPREDNISOLONE 125 MG INJ ONE (23:14)
[2022-04-03] MEDS ORDERED: ALBUTEROL 2.5 MG/3 ML NEB SOL ONE (23:14)
[2022-04-03] MEDS ORDERED: FUROSEMIDE 40 MG/4 ML VIAL ONE (23:15)
[2022-04-03] MEDS ORDERED: IPRATROPIUM BROM 0.5MG/2.5ML ONE (23:15)
[2022-04-04] MEDS ORDERED: IPRATROPIUM BROM 0.5MG/2.5ML NEB PRN (00:47)
[2022-04-04] MEDS ORDERED: ALBUTEROL 2.5 MG/3 ML NEB SOL NEB PRN (00:47)
[2022-04-04] MEDS ORDERED: ALPRAZOLAM 0.5 MG TABLET PO PRN (00:47)
[2022-04-04] MEDS ORDERED: ONDANSETRON 4 MG/2 ML VIAL IV PRN (00:47)
[2022-04-04 00:50] VITALS: BMI 35.6
[2022-04-04 05:31] LABS: Absolute Lymphocytes (CBC) 0.3 K/uL (0.7-4.9); Hematocrit 33.9 % (39.6-49.0); Lymphocytes % 5.2 % (15.3-44.8); MCV 89.2 fL (80-100); MPV 9.5 fL (7.6-11.3)
[2022-04-04 05:40] LABS: Arterial Blood Carboxyhemoglob 1.8 % (0-1.5); Blood Gas Oxyhemoglobin 90.4 % (94-97); Blood O2 Saturation 93.1 % (92-98.5)
[2022-04-04 05:47] LABS: Albumin 2.8 g/dL (3.4-5.0); Bilirubin Total 0.3 mg/dL (0.2-1.0); Potassium 3.9 mmol/L (3.5-5.1); Protein, Total 6.9 g/dL (6.4-8.2)
[2022-04-04 05:49] LABS: Basophilic Stippling 1+; Blood Morphology Comment NOTED (NOT SEEN); Platelet Estimate ADEQ; Polychromasia SLIGHT
[2022-04-04] MEDS: LEVOTHYROXINE SOD 0.1 MG TAB PO SCH (06:00)
[2022-04-04] MEDS: carvediloL 12.5 MG TAB PO SCH ×2 (06:00→17:03)
--- NOTE | 2022-04-04 06:18 | P.PN ---
Date of Service: 04/04/22 Subjective: feeling better, breathing more comfortable more alert/oriented states has not been using his NIV at night, but has been wearing intermittently during day denies chest pain/pressure, no recent illness ROS: as noted above, otherwise 10 point ROS negative Physical Exam General: Alert, fatigued appearing HEENT: Sclerae nonicteric Respiratory: Crackles/rales bilaterally Cardiovascular: Regular rate/rhythm, Edema b/l lower extremities Gastrointestinal: Soft and benign, Non-distended Neurological: Normal speech, Normal affect Problem List Acute on chronic hypercapnic/hypoxic respiratory failure COPD with exacerbation Acute on chronic diastolic congestive heart failure Atrial fibrillation on chronic anticoagulation therapy Diabetes mellitus type 2insulin-dependent Hypertension Hyperlipidemia Bipolar disorder/dementia Hypothyroidism Continue BiPAP, wean O2 as tolerated suspect secondary to not using NIV as prescribed check echo, trend trop; r/o worsening CHF cardiology consulted pulm consulted, pt with wheeze/crackles, hypercapnic, has had multiple admissions for similar presentation; typically resolves quickly with BIPAP already improving continue steroids, ICS, nebs continue IV lasix, up from home PO lasix CXR unchanged compared to last one many months ago - polm edema continue telemetry, home xarelto/amiodarone insulin VTE: Xarelto Code status: Full Dispo: back to [facility], 1-2 days Time Spent Managing Pts Care (In Minutes): 35
[2022-04-04] MEDS ORDERED: PNEUMOCOCCAL VACCINE 0.5 ML IMVAC ONE (08:00)
[2022-04-04] MEDS: INSULIN -REGULAR HUMAN 50 UNIT/0.5 ML ML SQ SCH ×4 (08:47→21:00)
[2022-04-04] MEDS: FUROSEMIDE 40 MG/4 ML VIAL IV SCH ×2 (08:47→17:02)
[2022-04-04] MEDS: AMIODARONE HCL 200 MG TAB PO SCH (08:47)
[2022-04-04] MEDS: acetaZOLAMIDE 250 MG TAB PO SCH (08:47)
[2022-04-04] MEDS: INSULIN GLARGINE 100 UNIT/ML SQ SCH (08:48)
[2022-04-04] MEDS: DULERA 200/5 (MOMETASONE/FORMOTEROL) INHALER IH SCH ×2 (08:48→20:06)
[2022-04-04] MEDS ORDERED: METHYLPREDNISOLONE 40 MG INJ IV SCH (09:00)
--- NOTE | 2022-04-04 12:57 | P.CNS ---
Date of Consult: 04/04/22 Reason for Consult: Respiratory failure Chief Complaint: Shortness of breath History of Present Illness: Patient is 76 years of age recurrent hospital admissions metabolic syndrome readmissions with respiratory failure apparently he does have a BiPAP is not us ing it as the staff not putting any water in the machine he does seem to help him is currently doing well no new complaints back to his baseline he is hypoxic hypercapnic alert responsive cooperative 7 Allergies caffeine Allergy (Verified 03/12/19 22:27) Anaphylaxis codeine Allergy (Verified 03/12/19 22:27) Anaphylaxis Home Medications: ALPRAZolam [Xanax*] 0.5 mg PO TID 04/04/22 Albuterol Sulfate [Albuterol Sulfate 0.083% Neb Soln] 1 amp NEB TIDP PRN 04/04/22 Amiodarone HCl [Cordarone*] 200 mg PO DAILY 04/04/22 Arformoterol Tartrate [Brovana] 1 amp NEB BID 04/04/22 Atorvastatin Calcium [Lipitor*] 10 mg PO BEDTIME 04/04/22 Brimonidine/Dorzolamide/Pf [Brimonidine 0.15%-Dorzolam 2%] 1 gtt EACH EYE BID 04/04/22 Buspirone HCl [Buspar*] 5 mg PO TID 04/04/22 Divalproex [Depakote Sprinkle*] 625 mg PO BID 04/04/22 Docusate [Colace Cap*] 200 mg PO BID 04/04/22 Doxepin HCl [Sinequan*] 25 mg PO BEDTIME 04/04/22 Furosemide [Lasix*] 40 mg PO DAILY 04/04/22 Insulin Degludec [Tresiba] 55 unit SQ BEDTIME 04/04/22 Levalbuterol HCl [Xopenex] 1 amp NEB TIDP PRN 04/04/22 Levothyroxine [Synthroid*] 0.1 mg PO DAILY 04/04/22 Lisinopril [Zestril] 5 mg PO DAILY 04/04/22 Melatonin 15 mg PO BEDTIME 04/04/22 Memantine HCl [Namenda*] 10 mg PO BID 04/04/22 Polyethyl Gly 3350 [Glycolax*] 17 g PO DAILYPRN PRN 04/04/22 Potassium Oral Tab [Klor-Con 10 mEq Tab*] 20 meq PO DAILY 04/04/22 Rivaroxaban [Xarelto] 20 mg PO DAILY 04/04/22 Sitagliptin Phosphate [Januvia] 100 mg PO DAILY 04/04/22 Timolol 0.5% Opth [Timoptic 0.5% Opth*] 1 gtt EACH EYE BID 04/04/22 Tramadol HCl [Ultram] 50 mg PO Q6HP PRN 04/04/22 Venlafaxine HCl 75 mg PO BID 04/04/22 Zinc 50 mg PO DAILY 04/04/22 acetaZOLAMIDE [Acetazolamide] 250 mg PO DAILY 04/04/22 carvediloL [Coreg*] 12.5 mg PO BID 04/04/22 cloNIDine HCL [Clonidine HCl] 0.1 mg PO BID 04/04/22 guaiFENesin [Guaifenesin] 10 ml PO Q6HP PRN 04/04/22 - Past Medical/Surgical History Diabetic: Yes -: Severe COPD, Pt has a BIPAP -: DM NIDDM -: HTN -: High cholesterol -: Bipolar -: Chronic diastolic congestive heart failure -: Heart stents Psychosocial/ Personal History: [facility] resident - Family History Mother Medical History: Stroke Notes: Stroke - Social History Smoking Status: Unknown if ever smoked Alcohol use: No CD- Drugs: No Caffeine use: Yes Place of Residence: [facility] Review of Systems General: Weakness Respiratory: Shortness of Breath Cardiovascular: Edema Physical Examination Temp Pulse Resp BP Pulse Ox 96.9 F 89 21 H 157/78 H 95 04/04/22 08:00 04/04/22 08:00 04/04/22 08:00 04/04/22 08:00 04/04/22 08:00 General: Alert, In no apparent distress, Oriented x3 Neck: Supple Respiratory: Clear to auscultation bilaterally, Diminished Cardiovascular: Regular rate/rhythm, Normal S1 S2, Edema Gastrointestinal: Normal bowel sounds, Soft and benign, Non-distended Laboratory Data (last 24 hrs) 04/03/22 20:03: PT 16.7 H, INR 1.51, APTT 35.8 04/03/22 20:03: Sodium 138, Potassium 4.2, BUN 30 H, Creatinine 1.35 H, Glucose 165 H, Total Bilirubin 0.2, AST 9 L, ALT 11 L, Alkaline Phosphatase 69 04/03/22 20:03: WBC 5.6, Hgb 9.7 L, Hct 31.3 L, Plt Count 124 L D - Problems (1) Acute respiratory failure with hypoxia and hypercapnia Current Visit: No Status: Acute Plan: Patient is 76 years of age recurrent hospital admissions with hypoxic hypercapnic respiratory failure she does have a BiPAP at home was not using it as the staff not putting any water in the machine instructed that he can use the BiPAP without water is only wakes for his comfort and compliance chemistries reviewed renal function has improved chest x-ray consistent with volume overload plan to discharge tomorrow vies patient to fluid restrict monitor weights no added salt diet is on bronchodilator therapy at home in addition to Diamox and Lasix no clinical evidence of sepsis
--- NOTE | 2022-04-04 14:44 | ECHO ---
HEIGHT: 6 ft 0 in WEIGHT: 272 lb 4.8 oz DATE OF STUDY: 04/04/[address]: Boris Villatoro NP 2-DIMENSIONAL: YES M.MODE: YES DOPPLER: YES COLOR FLOW: YES TDS: NO PORTABLE: YES DEFINITY: NO BUBBLE STUDY: NO DIAGNOSIS: PULMONARY EDEMA, CONGESTIVE HEART FAILURE CARDIAC HISTORY: CATHERIZATION:YES SURGERY: NO PROSTHETIC VALVE: NO PACEMAKER: NO MEASUREMENTS (cm) DIASTOLIC (NORMALS) SYSTOLIC (NORMALS) IVSd 1.1 (0.6-1.2) LA Diam 3.5 (1.9-4.0) LVEF 46% LVIDd 6.1 (3.5-5.7) LVIDs 4.7 (2.0-3.5) %FS 23% LVPWd 1.2 (0.6-1.2) Ao Diam 2.6 (2.0-3.7) 2 DIMENSIONAL ASSESSMENT: RIGHT ATRIUM: NORMAL LEFT ATRIUM: NORMAL RIGHT VENTRICLE: NORMAL LEFT VENTRICLE: MILDLY DILATED TRICUSPID VALVE: MITRAL VALVE: PULMONIC VALVE: NORMAL AORTIC VALVE: NORMAL PERICARDIAL EFFUSION: SMALL AORTIC ROOT: NORMAL LEFT VENTRICULAR WALL MOTION: ANTERIOR DEMETRA SEPTAL HYPOKINESIS. DOPPLER/COLOR FLOW: SEE BELOW COMMENTS: MILDLY DEPRESSED LEFT VENTRICULAR EJECTION FRACTION 40-45%. ANTERIOR DEMETRA SEPTAL HYPOKINESIS. MILD MITRAL AND TRICUSPID REGURGITATION. SMALL PERICARDIAL EFFUSION. MODERATE PULMONARY HYPERTENSION WITH RIGHT VENTRICULAR SYSTOLIC PRESSURE OF 50-55 mmHg. TECHNOLOGIST: Natalia COATES
[2022-04-04] MEDS ORDERED: RIVAROXABAN 10 MG TABLET PO SCH (17:00)
[2022-04-04] MEDS: predniSONE 20 MG TAB PO SCH (20:07)
[2022-04-04] MEDS ORDERED: ATORVASTATIN 40 MG TAB PO SCH (21:00)
[2022-04-05] MEDS: LEVOTHYROXINE SOD 0.1 MG TAB PO SCH (05:28)
[2022-04-05] MEDS: carvediloL 12.5 MG TAB PO SCH (05:28)
--- NOTE | 2022-04-05 06:17 | P.PN ---
Date of Service: 04/05/22 Subjective: ROS: as noted above, otherwise 10 point ROS negative Physical Exam General: Alert, fatigued appearing HEENT: Sclerae nonicteric Respiratory: Crackles/rales bilaterally Cardiovascular: Regular rate/rhythm, Edema b/l lower extremities Gastrointestinal: Soft and benign, Non-distended Neurological: Normal speech, Normal affect Problem List Acute on chronic hypercapnic/hypoxic respiratory failure COPD with exacerbation Acute on chronic diastolic congestive heart failure Atrial fibrillation on chronic anticoagulation therapy Diabetes mellitus type 2insulin-dependent Hypertension Hyperlipidemia Bipolar disorder/dementia Hypothyroidism Continue BiPAP, wean O2 as tolerated suspect secondary to not using NIV as prescribed check echo, trend trop; r/o worsening CHF cardiology consulted pulm consulted, pt with wheeze/crackles, hypercapnic, has had multiple admissions for similar presentation; typically resolves quickly with BIPAP already improving continue steroids, ICS, nebs continue IV lasix, up from home PO lasix CXR unchanged compared to last one many months ago - polm edema continue telemetry, home xarelto/amiodarone insulin VTE: Xarelto Code status: Full Dispo: back to halfway, 1-2 days Time Spent Managing Pts Care (In Minutes): 35
[2022-04-05 06:18] LABS: Absolute Lymphocytes (CBC) 0.9 K/uL (0.7-4.9); Hematocrit 33.4 % (39.6-49.0); Lymphocytes % 10.5 % (15.3-44.8)
[2022-04-05 06:49] LABS: Albumin 2.7 g/dL (3.4-5.0); Bilirubin Total 0.3 mg/dL (0.2-1.0); Potassium 3.7 mmol/L (3.5-5.1); Protein, Total 6.5 g/dL (6.4-8.2)
[2022-04-05] MEDS: INSULIN -REGULAR HUMAN 50 UNIT/0.5 ML ML SQ SCH ×2 (07:30→11:30)
--- NOTE | 2022-04-05 08:27 | RAD REPORT ---
EXAM DESCRIPTION: RAD - Chest Single View - 04/05/2022 6:31 am CLINICAL HISTORY: f/u opacities Chest pain. COMPARISON: Chest Single View dated 04/03/2022; Chest Single View dated 01/27/2022; Chest Single View d ated 01/25/2022; Chest Single View dated 02/14/2021 FINDINGS: Portable technique limits examination quality. Moderate bilateral pulmonary opacities are again seen, mildly improved since comparative study. The h eart is moderately enlarged. No displaced fractures. IMPRESSION: Mild improvement lung aeration seen since 04/03/2022.
[2022-04-05] MEDS: INSULIN GLARGINE 100 UNIT/ML SQ SCH (09:28)
[2022-04-05] MEDS: FUROSEMIDE 40 MG/4 ML VIAL IV SCH (09:29)
[2022-04-05] MEDS: acetaZOLAMIDE 250 MG TAB PO SCH (09:29)
[2022-04-05] MEDS: AMIODARONE HCL 200 MG TAB PO SCH (09:29)
[2022-04-05] MEDS: predniSONE 20 MG TAB PO SCH (09:30)
[2022-04-05] MEDS: DULERA 200/5 (MOMETASONE/FORMOTEROL) INHALER IH SCH (09:39)
[2022-04-05 12:30] VITALS: BP 165/83; TEMP 96.8
--- NOTE | 2022-04-05 14:09 | CON ---
Date of Consultation: 04/04/2022 Reason For Consultation: Respiratory failure. History Of Present Illness: Mr. Duncan is 76, has a history of COPD, bipolar disorder, congestive heart failure, hypertension, dyslipidemia, dementia, diabetes, and atrial fibrillation. Came in with respiratory failure. No chest pain reported. Complained of PND, orthopnea, pedal edema, shortness of breath. Denied fever or chills or cough. Chest x-ray, of course, showed CHF and COPD. PO2 was 6 9, pCO2 of 74 and pH is 7.35. He was in atrial fibrillation, heart rate of 105, was hypertensive wit h blood pressure 138/104, elevated BNP and mild anemia. Past Medical History: As stated above. Allergies: HE IS ALLERGIC TO CAFFEINE AND CODEINE. Review of Systems: Negative. Social History: Negative. Family History: Noncontributory. Medications: At home include clonidine, amiodarone, inhalers, Xanax, Xarelto, Lipitor, Zestril, Lasi x, Synthroid, Diamox, Januvia, Coreg. Physical Examination: Vital Signs: Blood pressure is 138/104, sinus tachycardia 105. HEENT: Negative. Neck: Supple with no bruit. Chest: Reveals rales, both bases and expiratory wheezing. Cardiac: With regular rhythm and rate with S4 gallops. Abdomen: Benign. Extremities: Revealed no clubbing, cyanosis. He had 1+ edema. Skin: Dry and intact. Pulses were present distally bilaterally. Impression And Plan: with combination of chronic obstructive pulmonary disease and conges tive heart failure exacerbation, probably acute on chronic diastolic congestive heart failure. Echoc ardiogram is pending. Pulmonology consultation is pending. We need to continue his home medication. He can continue diuresing. 1.Hypertension, borderline controlled. 2.Diabetes. 3.Dyslipidemia. 4.Dementia. 5.Bipolar disorder. 6.Atrial fibrillation. He is in sinus rhythm, on amiodarone and Xarelto. We will continue those. We will see what the echocardiogram shows. We will continue to follow. DELVIS/DAMARIS Voice ID: [id number] Report ID: [id number]
[2022-04-05 14:44] VITALS: O2SAT 98
[2022-04-05] MEDS ORDERED: ALBUTEROL 2.5 MG/3 ML NEB SOL NEB PRN (15:00)
--- NOTE | 2022-04-05 15:11 | EKG ---
Test Date: 2022-04-03 Test Time: 19:44:53 Tool Crib Attendant: KAMARI MEASUREMENT RESULTS: Intervals: Rate: 87 [place]: QRSD: 86 QT: 398 QTc: 478 [place]: P: DE: QRS: 63 T: 72 INTERPRETIVE STATEMENTS: Atrial fibrillation with a competing junctional pacemaker Septal infarct, age undetermined Abnormal ECG Compared to ECG 02/14/2021 18:31:06 Myocardial infarct finding now present Sinus bradycardia no longer present Atrial premature complex(es) no longer present Aberrant conduction of supraventricular beat(s) no longer present Electronically Signed On 04-05-22 15:08:39 CDT by Cristian Avina
--- NOTE | 2022-04-06 01:59 | PN ---
Date of Progress Note: 04/05/2022 Mr. 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 He also has a history of hypertension, diabetes, dementia, bipolar disorder, and dyslipidemia. He is in sinus rhythm on amiodarone and Xarelto. Ech ocardiogram showed an ejection fraction of 46% with moderate to severe pulmonary hypertension. His m edications include amiodarone, Lipitor, Lasix, insulin, Synthroid, Xarelto, Diamox, carvedilol as wel l as prednisone. I agree with the present regimen. He can go home whenever it is okay with vitaly cross physician. We will see him in the office soon. DELVIS/DAMARIS Voice ID: [id number] Report ID: [id number]
--- NOTE | 2022-04-06 20:44 | P.DS ---
Admission Date: 04/03/22 Discharge Date: 04/05/22 Disposition: TRANSFER TO CARE HOME Discharge Condition: GOOD Reason for Admission: Shortness of breath Consultations: Pulmonology - Dr. Almaguer Brief History of Present Illness: 76yo, PMH: COPD on home O2 at [facility], chronic diastolic CHF (HFpEF), chronic afib on anticoagulation, bipolar disorder, dementia, obesity, hypothyroidism, IDDM2, HLD Presented to ED due to altered mental status from [facility]. At the [facility], he was noted to be shaky and lethargic with oxygen saturations in the 80s. ABG was obtained in the ER upon arrival which demonstrated hypercapnic respiratory failure related to COPD/CHF, Other labs notable for normocytic anemia, mild FAVIO, COVID-negative, chest x-ray: pulmonary edema bilaterally, mild cardiomegaly. Patient was given dose of IV Lasix as well as Solu-Medrol and nebulizer treatment in the ED and placed on BiPAP. Patient's mental status has improved greatly he is currently oriented x3 we will need to admit for acute on chronic hypercapnic/hypoxic respiratory failure, COPD/CHF exacerbation. Hospital Course: Problem List Acute on chronic hypercapnic/hypoxic respiratory failure COPD with exacerbation, acute on chronic Acute on chronic diastolic congestive heart failure (HFpEF) Chronic Atrial fibrillation on chronic anticoagulation therapy Diabetes mellitus type 2insulin-dependent Hypertension Hyperlipidemia Bipolar disorder/dementia Hypothyroidism Patient was found to be in acute hypoxic, hypercapneic respiratory failure secondary to acute on chronic COPD exacerbation. He had quick and significant improvement with BIPAP. He was also treated with IV lasix. No evidence of infection. Pulmonology and Cardiology were consulted. Echocardiogram noted small area of hypokinesis in anterior septum. EF: 40-45%. EKG without evidence of acute coronary syndrome. Troponin negative. Cardiology recommended no further intervention at this time given his significant comorbidities and no acute findings. Follow up with Cardiology in a few weeks Pulmonology reviewed importance of using the NIV with the patient, especially at night time. Patient was deemed stable for discharge home. Continue previously prescribed medications, and new prescription for prednisone. Monitor patient with daily weights, if increased edema, weight gain recommend increasing lasix from 40mg daily to twice daily. Physical Exam General: Alert, NAD HEENT: Sclerae nonicteric, normal conjunctiva Respiratory: Crackles/rales bilaterally Cardiovascular: irregularly irregular rhythm, mild edema b/l lower extremities Gastrointestinal: Soft and benign, Non-distended Neurological: Normal speech, Normal affect Vital Signs/Physical Exam: Temp Pulse Resp BP Pulse Ox 96.8 F 88 20 165/83 H 98 04/05/22 12:00 04/05/22 12:00 04/05/22 12:00 04/05/22 12:00 04/05/22 12:00 Laboratory Data at Discharge: WBC 8.1 K/uL (4.3-10.9) D 04/05/22 06:00 Hgb 10.7 g/dL (13.6-17.9) L 04/05/22 06:00 Hct 33.4 % (39.6-49.0) L 04/05/22 06:00 Plt Count 144 K/uL (152-406) L 04/05/22 06:00 PT 16.7 SECONDS (9.5-12.5) H 04/03/22 20:03 INR 1.51 04/03/22 20:03 APTT 35.8 SECONDS (24.3-36.9) 04/03/22 20:03 Sodium 134 mmol/L (136-145) L 04/05/22 06:00 Potassium 3.7 mmol/L (3.5-5.1) 04/05/22 06:00 BUN 32 mg/dL (7-18) H 04/05/22 06:00 Creatinine 1.23 mg/dL (0.55-1.3) 04/05/22 06:00 Glucose 170 mg/dL (74-106) H 04/05/22 06:00 Total Bilirubin 0.3 mg/dL (0.2-1.0) 04/05/22 06:00 AST 10 U/L (15-37) L 04/05/22 06:00 ALT 13 U/L (12-78) 04/05/22 06:00 Alkaline Phosphatase 63 U/L (45-117) 04/05/22 06:00 Home Medications: ALPRAZolam [Xanax*] 0.5 mg PO TID 04/04/22 Albuterol Sulfate [Albuterol Sulfate 0.083% Neb Soln] 1 amp NEB TIDP PRN 04/04/22 Amiodarone HCl [Cordarone*] 200 mg PO DAILY 04/04/22 Arformoterol Tartrate [Brovana] 1 amp NEB BID 04/04/22 Atorvastatin Calcium [Lipitor*] 10 mg PO BEDTIME 04/04/22 Brimonidine/Dorzolamide/Pf [Brimonidine 0.15%-Dorzolam 2%] 1 gtt EACH EYE BID 04/04/22 Buspirone HCl [Buspar*] 5 mg PO TID 04/04/22 Divalproex [Depakote Sprinkle*] 625 mg PO BID 04/04/22 Docusate [Colace Cap*] 200 mg PO BID 04/04/22 Doxepin HCl [Sinequan*] 25 mg PO BEDTIME 04/04/22 Furosemide [Lasix*] 40 mg PO DAILY 04/04/22 Insulin Degludec [Tresiba] 55 unit SQ BEDTIME 04/04/22 Levalbuterol HCl [Xopenex] 1 amp NEB TIDP PRN 04/04/22 Levothyroxine [Synthroid*] 0.1 mg PO DAILY 04/04/22 Lisinopril [Zestril] 5 mg PO DAILY 04/04/22 Melatonin 15 mg PO BEDTIME 04/04/22 Memantine HCl [Namenda*] 10 mg PO BID 04/04/22 Polyethyl Gly 3350 [Glycolax*] 17 g PO DAILYPRN PRN 04/04/22 Potassium Oral Tab [Klor-Con 10 mEq Tab*] 20 meq PO DAILY 04/04/22 Rivaroxaban [Xarelto] 20 mg PO DAILY 04/04/22 Sitagliptin Phosphate [Januvia] 100 mg PO DAILY 04/04/22 Timolol 0.5% Opth [Timoptic 0.5% Opth*] 1 gtt EACH EYE BID 04/04/22 Tramadol HCl [Ultram] 50 mg PO Q6HP PRN 04/04/22 Venlafaxine HCl 75 mg PO BID 04/04/22 Zinc 50 mg PO DAILY 04/04/22 acetaZOLAMIDE [Acetazolamide] 250 mg PO DAILY 04/04/22 carvediloL [Coreg*] 12.5 mg PO BID 04/04/22 cloNIDine HCL [Clonidine HCl] 0.1 mg PO BID 04/04/22 guaiFENesin [Guaifenesin] 10 ml PO Q6HP PRN 04/04/22 predniSONE [Prednisone*] 20 mg PO SEECOM 7 Days #10 tab 04/05/22 New Medications: predniSONE [Prednisone*] 20 mg PO SEECOM 7 Days #10 tab Physician Discharge Instructions: Patient was found to be in acute hypoxic, hypercapneic respiratory failure secondary to acute on chronic COPD exacerbation. He had quick and significant improvement with BIPAP. He was also treated with IV lasix. No evidence of infection. Pulmonology and Cardiology were consulted. Echocardiogram noted small area of hypokinesis in anterior septum. EF: 40-45%. EKG without evidence of acute coronary syndrome. Troponin negative. Cardiology recommended no further intervention at this time given his significant comorbidities and no acute findings. Follow up with Cardiology in a few weeks Pulmonology reviewed importance of using the NIV with the patient, especially at night time. Patient was deemed stable for discharge home. Continue previously prescribed medications, and new prescription for prednisone. Monitor patient with daily weights, if increased edema, weight gain recommend increasing lasix from 40mg daily to twice daily. Followup: Tory Garcia MD [Primary Care Provider] - (Call to schedule appointment.) Time spent managing pt's care (in minutes): 45
== END 2022-04-05 14:32 | DRG 291 ==
LOC: ER 19:34 → ERHOLD 22:37 → 2ND 22:44
PROVIDERS: ADMIT Hospitalist; ATTEND Hospitalist
PROC: 5A09357 Assistance with Respiratory Ventilation, Less than 24 Consecutive Hours, Continuous Positive Airway Pressure (ICD-10-PCS; principal; 2022-04-03)
DX: I11.0 Hypertensive heart disease with heart failure (principal); I50.33 Acute on chronic diastolic (congestive) heart failure; J96.22 Acute and chronic respiratory failure with hypercapnia; J96.21 Acute and chronic respiratory failure with hypoxia; J44.1 Chronic obstructive pulmonary disease with (acute) exacerbation; I48.20 Chronic atrial fibrillation, unspecified; E11.9 Type 2 diabetes mellitus without complications; E78.5 Hyperlipidemia, unspecified; F31.9 Bipolar disorder, unspecified; E03.9 Hypothyroidism, unspecified; I27.20 Pulmonary hypertension, unspecified; Z79.01 Long term (current) use of anticoagulants; Z99.81 Dependence on supplemental oxygen; Z20.822 Contact with and (suspected) exposure to COVID-19
CPT/HCPCS: 36415; 51702; 71045; 80053; 81003; 81015; 82805; 82947; 83605; 83880; 84484; 85025; 85610; 85730; 87040; 87070; 87081; 87086; 87088; 87804; 93005; 93306; 94640; 94660; 96374; 96375; 99285; J1815; J1940; J2920; J2930; J3535; J7512; U0003

== ENCOUNTER 2022-08-29 09:33 | Inpatient (IN) | payer OTHER ==
--- OUTSIDE RECORDS SUMMARY | 2022-08-29 09:47 | XMS REPORT | Continuity of Care Document ---
:1945 Author Organization [facility] t Address [address] [place] [address] [address]. [address] [place] [address] Care Team Providers Name Role Phone PCP, PATIENT DOES NOT HAVE A Primary Care Physician UnavailJenna Mckeon Attending Clinician Unavailable ANDREW OVIEDO Attending Clinician Unavailable Andrew Oviedo MD Attending Clinician Erlin Rodriguez MD Attending Clinician Doctor Unassigned, [place] Attending Clinician Unavailable Giancarlo Murphy Attending Clinician Farhad Rodriguez III Attending Clinician Sofi Rapp Attending Clinician Ant Tracy Jr Attending Clinician Angel Gold Attending Clinician Negro Dawkins Attending Clinician ANDREW OVIEDO Admitting Clinician Unavailable Giancarlo Murphy Admitting Clinician Sofi Rapp Admitting Clinician Dc Maradiaga Admitting Clinician Negro Dawkins Admitting Clinician Payers Payer Name Policy Type Policy Number Effective Date Expiration Date S [facility] [id number] MEDICARE PART A \\T\\ [id number] 2001 B 00:00:00 MEDICAID OF [place] [id number] 2012 00:00:00 Problems Condition Condition Condition Status Onset Resolution Last Treating Co mments Source Name Details Category Date Date Treatment Clinician Date ABD PAIN ABD PAIN Diagnosis Active 2017-11-11 Memoria Active 05-22 12:12:00 l 05/22/2017 08:00: Rudy shankar 00 [facility] WOUND WOUND Diagnosis Active 2017-04-03 Mem oria Active 02-27 16:00:00 l 02/27/2017 08:00: Rudy shankar 00 [place] LEG LEG Diagnosis Active 2015-092016-07-29 Mem oria WEAKNESS WEAKNESS 09-26 15:57:00 l BILATERAL BILATERAL 00:00: Dorinda arenas Active 00 07/27/2016 [facility] WEAKNESS WEAKNESS Diagnosis Active 2016-05-30 Memoria Active 05-30 22:11:00 l 05/30/2016 07:00: Rudy shankar 00 [facility] AMS AMS Diagnosis Active 2015-02-20 Mem oria Active 02-17 16:39:00 l 02/17/2015 00:00: Rudy shankar 00 [facility] SOB SOB Diagnosis Active 2013-092015-05-19 Mem oria Active 0 09:41:00 l 06/08/2014 00:00: Rudy shankar 00 [facility] Diabetes Diabetes Disease Active Unive rs mellitus mellitus 8-10 ity of type 2, type 2, 00:00: [place] controlled controlled 00 Mi dical Branch HLD HLD Disease Active Univers (hyperlipi (hyperlipi 8-10 it y of demia) demia) 00:00: [place] [id number] Medical Branch Essential Essential Disease Active Uni vers hypertensi hypertensi 8-10 it y of on[place] benign [place] Schizoaffe Schizoaffe Disease Active U nivers ctive ctive 8-10 ity of disorder disorder 00:00: [place] 00 Medical Branch Low Low Disease Active Univers testostero testostero 8-10 it y of ne ne 00:00: [place] [facility] COPD COPD Disease Active Univers [...] Formattin ity of 00:00: g of this [place] 00 note Medical might be Branch different from the original. ICD10 Diagnosis Term Field Checker Utility Hypothyroi Hypothyroi Disease Active U nivers dism dism 8-10 ity of 00:00: [place] 00 Medical Branch Bipolar Bipolar Problem Resolve 2017-06-13 M emoria (qualifier (qualifier d 00:54:32 l value) value) [place] Resolved Problem 06/13/2017 [facility] Acute Acute Problem Resolve 2017-06-13 David cedrick congestive congestive d 00:54:32 l heart heart Gm[place] failure failure (disorder) (disorder) Resolved Problem 06/13/2017 [facility] Hypertensi Hypertens Problem Resolve 2017-06-13 Memoria ve forest d 00:54:32 l disorder, disorder, Herm deepa systemic systemic arterial arterial (disorder) (disorder) Resolved Problem 06/13/2017 [facility] Schizophre Schizophr Problem Resolve 2017-06-13 Memoria boubacar enia d 00:54:32 l (disorder) (disorder) He rmann Resolved Problem 06/13/2017 [facility] 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 00:54:32 l (disorder) (disorder) He rmann Resolved Problem 06/13/2017 [facility] Peptic Peptic Problem Resolve 2017-06-13 Mem oria ulcer with ulcer with d 00:54:32 l hemorrhage hemorrhage He rmann (disorder) (disorder) Resolved Problem 06/13/2017 [facility] Anxiety Anxiety Problem Active 2017-06-13 Me moria (finding) (finding) 00:54:32 l Active [place] Problem 06/13/2017 [facility] Arthritis Arthritis Problem Active 2017-06-13 Memoria (disorder) (disorder) 00:54:32 l Active [place] Problem 06/13/2017 [facility] Depressive Depressiv Problem Active 2017-06-13 Memoria disorder e disorder 00:54:32 l (disorder) (disorder) He rmann Active Problem 06/13/2017 [facility] Diabetes Diabetes Problem Active 2017-06-13 Memoria mellitus mellitus 00:54:32 l (disorder) (disorder) He rmann Active Problem 06/13/2017 [facility] Gastroesop Gastroeso Problem Active 2017-06-13 Memoria hageal phageal 00:54:32 l reflux reflux [place] disease disease (disorder) (disorder) Active Problem 06/13/2017 [facility] Narcosis Narcosis Problem Active 2017-06-13 Memoria (finding) (finding) 00:54:32 l Active [place] Problem 06/13/2017 [facility] CHR AIRWAY CHR Diagnosis Active 2015-05-19 Memoria OBSTRUCT AIRWAY 09:41:00 l NEC OBSTRUCT [place] NEC Active [facility] ALTERED ALTERED Diagnosis Active 2015-02-20 Memoria MENTAL MENTAL 16:39:00 l STATUS STATUS [place] Active [facility] UNSPECIFIE UNSPECIFI Diagnosis Active 2017-04-03 Memoria D OPEN ED OPEN 16:00:00 l WOUND, WOUND, [place] RIGHT RIGHT FOOT, SUBS FOOT, SUBS Active [facility] NON-PRS NON-PRS Diagnosis Active 2015-09-18 Memoria CHRONIC CHRONIC 16:01:00 l ULCER OTH ULCER OTH Herm deepa PRT RIGHT PRT RIGHT FOOT FOOT Active [facility] TYPE 2 TYPE 2 Diagnosis Active 2015-11-22 Mi moria DIABETES W DIABETES W 08:18:00 l DIABETIC DIABETIC Rudy n PERIPHERAL PERIPHERAL AN AN Active [facility] TINEA TINEA Diagnosis Active 2016-05-07 Mem oria UNGUIUM UNGUIUM 16:57:00 l Active [place] [facility] TYPE 2 TYPE 2 Diagnosis Active 2016-05-07 Mi moria DIABETES DIABETES 16:57:00 l MELLITUS MELLITUS Rudy n WITH WITH DIABETIC P DIABETIC P Active [facility] NON-PRS NON-PRS Diagnosis Active 2016-01-09 Memoria CHRONIC CHRONIC 15:34:00 l ULCER OTH ULCER OTH Herm deepa PRT R FOOT PRT R FOOT STRE[address] STREET Active [facility] CORNS AND CORNS AND Diagnosis Active 2016-05-07 Memoria CALLOSITIE CALLOSITIE 16:57:00 l S S Active [facility] MUSCLE MUSCLE Diagnosis Active 2016-07-29 Me moria WEAKNESS WEAKNESS 15:57:00 l (GENERALIZ (GENERALIZ [facility] ED) ED) Active [facility] CHOLECYSTI Diagnosis Active 2017-11-11 Memoria TIS, CHOLECYSTI 12:12:00 l UNSPECIFIE WAI Rudy n D UNSPECIFIE D Active [facility] Type 2 Type 2 Problem Active Common diabetes diabetes Spirit mellitus mellitus - [facility] without without St complicati complicati Jade kes on, on, Medical unspecifie unspecifie Ce nter d whether d whether pension agent [facility] insulin insulin use use Congestive Congestive Problem Active C ommon heart heart Spirit failure, failure, - [facility] unspecifie unspecifie St d HF d HF [facility] chronicity chronicity Me dical , , [place] unspecifie unspecifie d heart d heart failure failure type type Essential Essential Problem Active Com mon (primary) (primary) Spir it hypertensi hypertensi - [facility] on on [facility] Depression Depression Problem Active C omjurgen with with Spirit anxiety anxiety - [facility] Acquired Acquired Problem Active Commo n hypothyroi hypothyroi Sp leila dism dism [facility] Bipolar 1 Bipolar 1 Problem Active Com mon disorder, disorder, Spir it depressed, depressed, - [facility] full full St remission remission [facility] Hyperlipid Hyperlipid Problem Active C marlo emia, emia, Spirit unspecifie unspecifie - [facility]I d d St hyperlipid hyperlipid Jade ke emia type emia type [facility] Seasonal Seasonal Problem Active Commo n allergies allergies Spir it - [facility] Chronic Chronic Problem Active Common obstructiv obstructiv Sp leila e e - [facility] pulmonary pulmonary St disease, disease, [facility] unspecifie unspecifie Me dical d COPD d COPD Center type type Type 2 Type 2 Problem Active Common diabetes diabetes Spirit mellitus mellitus - [facility] with foot with foot St ulcer ulcer [facility] Non-pressu Non-pressu Problem Active C marlo re chronic re chronic Sp leila ulcer of ulcer of - [facility]I other part other part St of right of right [facility] foot with foot with Medi magda other other Center specified specified severity severity Recurrent Recurrent Problem Active Com mon falls falls Spirit while while - [facility]I walking walking [facility] Chronic Chronic Problem Active Common kidney kidney Spirit disease, disease, - [facility] unspecifie unspecifie St d CKD d CKD [facility] Hypocalcem Hypocalcem Problem Active C ommon ia ia Spirit - [facility] Generalize Generalize Problem Active C ommon d muscle d muscle Spirit weakness weakness - [facility] Generalize Generalize Problem Active C ommon d weakness d weakness Sp leila [facility] 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 - [facility] History of Past Illness Condition Condition Condition Status Onset Resolution Last Treating Co mments Source Name Details Category Date Date Treatment Clinician Date Discharge Discharge Problem 2016-06-02 2016-06-02 Memoria Diagnosis: Diagnosis: 05-30 03:26:48 03:26:48 l Fatigue Fatigue 05:00: [place] 05/30/[address] [place] [address] Discharge Discharge Problem 2016-06-02 2016-06-02 Memoria Diagnosis: Diagnosis: 05-30 03:26:48 03:26:48 l Acute Acute 05:00: [place] renal renal 00 insufficie insufficie ncy ncy 05/30/[address] [place] [address] Discharge Discharge Problem 2016-06-02 2016-06-02 Memoria Diagnosis: Diagnosis: 05-30 03:26:48 03:26:48 l Dehydratio Dehydratio 05:00: He rmann n n 00 05/30/2016 06/02/2016 [facility] Allergies, Adverse Reactions, Alerts Allergy Allergy Status Severity Reaction(s) Onset Inactive Treating Comm ents Source Name Type Date Date Clinician CODEINE DRUG Active Unknown-Cmnt Uni vers INGREDI 05-14 ity of 00:00: [place] 00 Medical Branch Codeine Propensi Active Unknown - Univ ers ty to See comments 05-14 ity of adverse 00:00: [place] reaction 00 Medical s Branch codeine Adverse Active Info Not Common Reaction Available Spiri t [facility] codeine codeine Active Barney Magaña caffeine caffeine Active Kelly Magaña Social History Social Habit Start Date Stop Date Quantity Comments Source History SDOH University o f Alcohol Frequency [place] M edical Branch History SDOH University o f Alcohol Std [place] [facility] Drinks Branch History SDMO University o f Alcohol Binge [place] Medic al Branch History of Chews Tobacco University of tobacco use [place] [facility] Exposure to 2021-12-31 2022-01-10 Not sure [facility] SARS-CoV-2 00:00:00 08:40:00 [facility] (event) [place] Social History 2016-05-30 2016-05-30 Mary colbert 15:36:53 15:36:53 Alcohol intake 2012-12-31 2012-12-31 Current University of 00:00:00 00:00:00 non-drinker of [facility] alcohol Branch (finding) Alcohol Comment 2011-06-28 2011-06-28 quit alcohol Univers ity of 00:00:00 00:00:00 [facility] Tobacco use and 2011-06-28 2011-06-28 Current user Univers ity of exposure 00:00:00 00:00:00 [facility] Sex [birth year] Universit y of 00:00:00 00:00:00 [facility] Smoking Status Start Date Stop Date Source Former smoker 2011-06-28 00:00:00 2011-06-28 00:00:00 Universi [facility] Medications Ordered Filled Start Stop Current Ordering Indication Dosage Frequency Signature Comments Components Source Medication Medication Date Date Medication? Clinician (SIG) Name Name Carvedilol Carvedilol 2018-0 Yes Jenna 1 tablet Common 9-26 Millender Spirit 00:00: - [facility] Glucometer Glucometer 2018-0 Yes Jenna one strip Common test strips test strips 9-16 Millender using the Spirit 00:00: [facility] Albuterol 2017-09 Yes Jenna 3 ml as Common Sulfate Sulfate 2-18 Millender needed Sp leila 00:00: - [facility] fluconazole 2016- Yes 200 mg = 2 Memoria 100 mg oral 0-10 tab, PO, l tablet 21:09: [id number], 0 Padmini nn 00 Refill(s) Saline 2016- No 10 mL, Memoria Flush 0.9% 0-10 Route: l 21:00: IVP, Drug [place] 00 Form: INJ, Dosing Weight 118.682, kg, Q8H, Start date: 06/10/17 16:00:00 CDT, Duration: 30 day, Stop date: 07/10/17 8:00:00 MED SURG NURSE Lidocaine 2016-09 No Notes: Memori a Hydrochlori 0-10 Preservati l de 10 MG/ML 21:00: ve free. He rmann Injectable 00 (Same as: Solution Xylocaine MPF) Saline 2016-09 No Notes: Memoria Flush 0.9% 0-10 (Same as: l 20:41: BD [place] 00 Posiflush) Lidocaine 2016-09 No 5 mL, Memoria Hydrochlori 0-10 Route: l de 10 MG/ML 19:00: INTRADERM, [place] Injectable 00 Dosing Solution Weight 118.682, kg, ONCALL, Start date: 06/10/17 14:00:00 CDT, Duration: 30 day, Stop date: 07/10/17 12:59:00 MED SURG NURSE BD Normal 2016-09 No Notes: Memori a Saline 0-10 (Same as: l Flush 19:00: BD [place] 00 Posiflush) Saline 2016-09 No Notes: Memoria Flush 0.9% 0-10 (Same as: l 18:26: BD [place] 00 Posiflush) Lidocaine 2016-09 No Notes: Memori a Hydrochlori 0-10 Preservati l de 10 MG/ML 18:00: ve free. He rmann Injectable 00 (Same as: Solution Xylocaine MPF) Saline 2016-09 No Notes: Memoria Flush 0.9% 0-10 (Same as: l 17:59: BD [place] 00 Posiflush) Protonix 2016-09 No Notes: Memoria 0-09 Tablet l 21:30: should not [place] 00 be chewed or crushed. (Same as: Protonix) Miralax 2016-09 No Notes: Memoria 0-09 Dissolve l 17:11: in 8 oz of [place] 00 water or juice. (Same as: Miralax) [...] Memoria 0-03 (Same as: l 16:00: Zosyn) Dosing based on Piperacill in component MEDICATION WASTE Product Size: 3375 mg Product Wasted: ___ mg Hydralazine 2016-09 No Notes: David cedrick 0-03 (Same as: l 07:17: Apresoline ) Push over 5 minutes Diflucan 2016-09 No Notes: Memoria 0-01 (Same as: l 20:00: Diflucan) Lasix 2016-09 No Notes: Memoria 0-01 (Same as: l 15:04: Lasix) Diflucan No Notes: Memoria 05-31 (Same as: l 22:00: Diflucan) Do not refrigerat e Flagyl No Notes: Memoria 05-31 (Same as: l 21:00: Flagyl) Avoid alcohol. Lovenox No 30 mg, Memoria 05-30 Route: l 18:00: SUB-Q, Drug form: INJ, [id number], Dosing Weight 118.682, kg, For CrCl <30mL/min, [...] MG/ML 18:32: Citrate of H ermann Oral 00 Magnesia) Solution Concentrat ion: 1.745 gm / 30 mL Albuterol No Notes: Memori a 0.833 MG/ML 05-25 (Same as: l / 16:00: Duoneb) [place] Ipratropium 00 [place] 0.167 MG/ML Inhalant Solution Budesonide No Notes: [...] gm, Memoria 05-24 Route: l 23:34: IVPB, [place] 00 ONCE, Dosing Weight 118.682, kg, Start [...] CDT influenza No Notes: Memori a virus 9-23 (Same as: l vaccine, 14:00: Fluzone Rudy n inactivated 00 Quadrivale nt, Fluarix Quadrivale nt) For 3 years of age and older (0.5 mL IM) Shake well before use ia No Notes: Memoria 05-24 (Same as: l 14:00: Januvia) omega-3 No Notes: Memoria polyunsatur 05-24 (Same as: l ated fatty 14:00: MaxEPA, Herm deepa 00 [place] 3 fish oil ) Non-Formul genaro Drug Vitamin D3 No Notes: Memor ia 05-24 Same as : l 14:00: Vitamin D3 venlafaxine No Notes: David cedrick 05-24 (Same As: l 14:00: Effexor) Albuterol No Notes: Memori a 0.833 MG/ML 05-24 (Same as: l / 13:46: Duoneb) Ipratropium 00 [place] 0.167 MG/ML Inhalant Solution [DuoNeb] tiotropium No Notes: Memor ia 0.018 05-24 (Same As: l MG/ACTUAT 13:00: Spiriva). Her andujar Inhalant 00 Powder [Spiriva] Thyroxine No Notes: Memori a 05-24 Take 1 l 11:30: hour before or 2 hours after meal; Enteral feeds may interefere with the absorption of this medication .(Same as:Levothr oid, Synthroid) 24 HR No Notes: Memoria Divalproex 05-24 (Same as: l Sodium 500 02:00: Depakote Her andujar MG Extended 00 ER) Once Release daily Tablet dosing; indicated for migraines. Divalproex sodium extended-r elease tab. Do not chew or crush. "Do Not Crush" Trazodone No Notes: Memori a 05-24 (Same As: l 02:00: Desyrel) Risperidone No Notes: David cedrick 05-24 (Same [...] cedrick 05-24 (Same as: l 02:00: Tricor) [place] 00 Ipratropium No Notes: SEE Memoria 05-24 RT l 00:00: DOCUMENTAT [place] 00 ION (Same as:Atroven t) Zosyn + [...] l inhalation 21:00: Symbicort) H ermann aerosol 00 WASTE: with Aerosol - adapter Return to Pharmacy Zosyn No 2.25 gm, Memoria 05-23 Route: IV, l 21:00: Q8H, [place] 00 Dosing Weight 109.545, kg, Start date: [...] milk (Same as: Xanax) Insulin No 60 units) David cedrick Lispro 05-23 WASTE: F/P l 17:40: - Black; E - Municipal Trash Bin [...] 05-23 Route: IM, l 17:40: Drug form: [place] 00 PDR/INJ, PRN, Dosing Weight 118.682, kg, PRN Blood Glucose Results, Start date: 05/23/17 12:40:00 CDT, Duration: 30 day, Stop date: 06/22/17 12:39:00 CDT Baclofen No Notes: Memoria -22 (Same As: l 17:15: Lioresal) [place] 00 Aspirin 81 2016- No 81 mg = 1 Me moria MG Chewable -22 tab, PO, l Tablet 16:29: Daily, [place] tab, 0 Refill(s) 24 HR Yes 500 mg = 1 Memori a Divalproex 9-22 tab, PO, l Sodium 500 16:29: Bedtime, # H ermann MG Extended 30 tab, 0 Release Refill(s) Tablet Zosyn + No Notes: Memoria sodium - (Same as: l chloride 16:00: Zosyn) [place] 0.9% INJ Dosing 100 mL based on Piperacill in component MEDICATION WASTE Product Size: 3375 mg Product Wasted: ___ mg Zosyn + No Notes: Memoria sodium 05-23 (Same as: l chloride 15:21: Zosyn) [place] 0.9% INJ Dosing 100 mL based on Piperacill in component MEDICATION WASTE Product Size: 3375 mg Product Wasted: ___ mg Morphine 2016- No 2 mg, 1 Memori a 9-22 mL, Route: l 14:57: IVP, Drug form: SOLN, Q4H, Dosing Weight 109.545, kg, PRN Pain Score 7-10, Priority: STAT, Start date: 05/23/17 9:57:00 CDT, Stop date: 06/22/17 9:56:00 CDT Zofran No Notes: Memoria - (Same as: l 14:57: Zofran) MEDICATION WASTE Product Size: 4 mg Product Wasted: ___ mg Morphine No 4 mg, Memoria 05-23 Route: l 14:27: IVP, ONCE, Dosing Weight 109.545, kg, Priority: STAT, Start date: 05/23/17 9:27:00 CDT, Stop date: 05/23/17 9:27:00 CDT Omnipaque No 45 Memoria 300 9-22 mL/min, l injectable 11:50: STAT, Rudy n solution 00 Start date: 05/23/17 6:50:00 CDT, Duration: 1 doses or times Morphine No Notes: Memoria 05-23 (Same l 11:10: as:MORPhin e Sulfate) Saline No Notes: Memoria Flush 0.9% 05-23 (Same as: l 11:09: BD Posiflush) tiotropium 2015-09 No Notes: Memor ia 0.018 09-28 (Same As: l MG/ACTUAT 15:00: Spiriva). Her andujar Inhalant 00 Powder [Spiriva] One-A-Day 2015-09 No 1 tab, Memori a Men 50 Plus 09-28 Route: PO, l 15:00: Dosing Weight 109.545, kg, Daily, Start date: 07/29/16 9:00:00 MED SURG NURSE, Duration: 30 day, Stop date: 08/27/16 9:00:00 MED SURG NURSE Aspirin 2015-09 No 81 mg, Memoria 09-28 Route: PO, l 15:00: Daily, Dosing Weight 109.545, kg, Start date: 07/29/16 9:00:00 MED SURG NURSE, Duration: 30 day, Stop date: 08/27/16 9:00:00 MED SURG NURSE Levemir 2015-09 No Notes: Memoria FlexPen 09-28 Same as l 03:00: Levemir Do not hold insulin without contacting prescriber WASTE: F/P - Black; E - Municipal Trash Bin "single patient use only" Trazodone 2015-09 No Notes: Memori a 09-28 (Same As: l 03:00: Desyrel) Risperidone 2015-09 No Notes: David cedrick 09-28 (Same as: l 03:00: Risperdal) latanoprost 2015-09 No Notes: David cedrick 0.05 MG/ML 09-28 Keep l Ophthalmic 03:00: refrigerat H ermann Solution 00 ed. (Same as:Xalatan ) Insulin 2015-09 No 30 unit, Memori a Glargine 09-28 Route: l 100 UNT/ML 03:00: SUB-Q, Padmini nn Injectable 00 Drug form: Solution SOLN, [Lantus] Bedtime, Dosing Weight 109.545, kg, Start date: 07/28/16 21:00:00 MED SURG NURSE, Duration: 30 day, Stop date: 08/26/16 21:00:00 MED SURG NURSE Docusate 2015-09 No Notes: Memoria Sodium 100 09-27 (Same as: l MG Oral 23:00: Colace) [place] Capsule (Do Not Crush) Brimonidine 2015-09 No Notes: David cedrick tartrate 09-27 (Same As: l 1.5 MG/ML 23:00: Alphagan) Her andujar Ophthalmic 00 Solution Betaxolol 2015-09 No 2 drp, Memori a 2.5 MG/ML 09-27 Route: l Ophthalmic 23:00: BOTH EYES, H ermann Suspension 00 BID, Drug [Betoptic form: S] SUSP, Start date: 07/28/16 17:00:00 MED SURG NURSE, Duration: 30 day, Stop date: 08/27/16 9:00:00 MED SURG NURSE timolol 2015-09 No Notes: Memoria ophthalmic - (Same As: l 23:00: Timoptic, [place] 00 Betimol) Buspirone 2015-09 No Notes: Memori a - (Same As: l 21:00: BuSpar) [place] Ipratropium 2015-09 No 500 Memori a 1-27 microgram, l 19:00: Route: [place] 00 NEB, QID, Dosing Weight 109.545, kg, Start date: 07/28/16 13:00:00 MED SURG NURSE, Duration: 30 day, Stop date: 08/27/16 9:00:00 MED SURG NURSE Alprazolam 2015-09 No 0.5 mg, David cedrick 09-27 Route: PO, l 19:00: TID, [place] Dosing Weight 109.545, kg, Start date: 07/28/16 13:00:00 MED SURG NURSE, Duration: 30 day, Stop date: 08/27/16 9:00:00 MED SURG NURSE Thyroxine 2015-09 No Notes: Memori a 1- Take 1 l 17:30: hour [place] 00 before or 2 hours after meal; Enteral feeds may interefere with the absorption of this medication .(Same as:Levothr oid, Synthroid) multivitami 2015-09 No Notes: David cedrick n with 09-27 Give with l minerals 17:00: food. [place] 00 (Same As: Stress 600 with Zinc) WASTE: F/P - Black; E - Municipal Trash Bin omega-3 2015-09 No Notes: Memoria polyunsatur 09-27 (Same as: l ated fatty 17:00: Lovaza, Herm deepa acids 00 formally named [place]) "Do Not Crush" Lisinopril 2015-09 No Notes: Memor ia 09-27 (Same as: l 17:00: Prinivil, [place] 00 Zestril) metoprolol 2015-09 No Notes: Memor [...] Roll in l Human 16:01: palms of [place] 00 hands gently; Do not shake vigorously . (Same as: NovoLOG) "single patient use only" WASTE: F/P - Black; E - Municipal Trash Bin Stable for 28 days at room temperatur e. Expires in days from ____Date Dextrose 2015-09 No 12.5 gm, Memor ia 50% Syringe 09-27 25 mL, l 16:01: Route: [place] IVP, Drug Form: INJ, Dosing Weight 109.545, kg, PRN, PRN Blood Glucose Results, Start date: 07/28/16 10:01:00 MED SURG NURSE, Duration: 30 day, Stop date: 08/27/16 10:00:00 MED SURG NURSE Glucagon 2015-09 No 1 mg, Memoria 09-27 Route: IM, l 16:01: Drug form: [place] PDR/INJ, PRN, Dosing Weight 109.545, kg, PRN Blood Glucose Results, Start date: 07/28/16 10:01:00 MED SURG NURSE, Duration: 30 day, Stop date: 08/27/16 10:00:00 MED SURG NURSE Enoxaparin 2015-09 No Notes: Memor ia - (Same as: l 16:00: Lovenox) [place] 00 Baclofen 2015-09 No Notes: Memoria - (Same As: l 15:58: Lioresal) Saline 2015-09 No Notes: Memoria Flush 0.9% 09-27 (Same as: l 15:00: BD [place] 00 Posiflush) aspirin 81 2015-09 No Notes: Do Me moria mg tablet, 09-27 not crush l enteric 15:00: or chew. Rudy n coated 00 (Same As: Ecotrin) Famotidine 2015-09 No Notes: Memor ia - (Same as: l 15:00: Pepcid) [place] 00 Alprazolam 2015-09 No Notes: Memor ia 0.5 MG Oral 09-27 With food l Tablet 14:20: or milk [place] [Xanax] 00 (Same as: Xanax) Saline 2015-09 No Notes: Memoria Flush 0.9% 1-27 (Same as: l 07:29: BD [place] Posiflush) Ondansetron 2015-09 No Notes: David cedrick 09-27 (Same as: l 07:29: Zofran) [place] MEDICATION WASTE Product Size: 4 mg Product Wasted: ___ mg Sodium 2015-09 No 1,000 mL, Memori a Chloride 09-27 Rate: 40 l 0.154 07:29: ml/hr, [place] MEQ/ML 00 Infuse Injectable over: 25 Solution hr, Route: IV, Dosing Weight 97.273 kg, Total Volume: 1,000, Start date: 07/28/16 1:29:00 MED SURG NURSE, Stop date: 08/27/16 1:28:00 MED SURG NURSE Aspirin 2015-09 No Notes: Memoria 09-27 Take with l 05:47: food. [place] 00 Sodium No 1,000 mL, Memori a Chloride 05-30 1,000 l 0.154 15:49: ml/hr, [place] MEQ/ML 00 Infuse Injectable Over: 1 Solution hr, Route: IV, 1,000, Drug form: INJ, ONCE, Priority: STAT, Dosing Weight 97.727 kg, Start date: 05/30/16 10:49:00 CDT, Duration: 1 doses or times, Stop date: 05/30/16 10:49:00 CDT Fenofibrate No 200 mg, Mem oria 6-20 Route: PO, l 14:00: Daily, [place] 00 Dosing Weight 120, kg, Start date: 02/18/15 9:00:00, Duration: 30 day, Stop date: 03/19/15 9:00:00 pantoprazol No Notes: David cedrick e 6-20 Tablet l 14:00: should not [place] 00 be chewed or crushed. (Same as: Protonix) Thyroxine No Notes: Memori a 6-20 Take 1 l 11:30: hour [place] 00 before or 2 hours after meal; Enteral feeds may interefere with the absorption of this medication .(Same as:Levothr oid, Synthroid) Alprazolam No Notes: Memor ia 6-20 With food l 06:01: or milk [place] 00 (Same as: Xanax) TriCor No Notes: Memoria 6-20 (Same as: l 02:00: Tricor) [place] Risperidone No Notes: David cedrick 6-20 (Same as: l 02:00: Risperdal) [place] Lisinopril No Notes: Memor ia 6-20 (Same as: l 02:00: Prinivil, [place] Zestril) latanoprost No Notes: David cedrick 0.05 [...] 0.9% 6-20 (Same as: l 02:00: BD [place] Posiflush) Docusate No Notes: Memoria 6-20 (Same as: l 02:00: Colace) [place] (Do Not Crush) normal No 1,000 mL, [...] Sodium No 1,000 mL, Memori a Chloride 6-20 1,000 l 0.154 00:00: ml/hr, [place] MEQ/ML 00 Infuse Injectable Over: 1 Solution hr, Route: IV, ONCE, Priority: STAT, Dosing Weight 120 kg, Start date: 02/17/15 19:00:00, Duration: 1 doses or times, Stop date: 02/17/15 19:00:00 Albuterol No Notes: Memori a 0.833 MG/ML 20 (Same as: l / 00:00: Duoneb) Ipratropium 00 [place] 0.167 MG/ML Inhalant Solution Lactulose No Notes: Memori a 6-19 (Same l 23:00: as:Chronul [place] ac) Betaxolol No Notes: Memori a 2.5 MG/ML 19 (Same As: l Ophthalmic 22:00: Betoptic [place] Suspension S) [Betoptic S] Aspirin No Notes: Memoria 6-19 Take with l 22:00: food. Vitamin C No Notes: Memori a 6-19 (Same as: l 22:00: Vitamin C) Amlodipine No Notes: Memor ia 6-19 (Same as: l 22:00: Norvasc) Amiodarone No Notes: Memor ia 6-19 (Same as: l 22:00: Cordarone) Alprazolam No Notes: Memor ia 6-19 With food l 22:00: or milk (Same as: Xanax) venlafaxine No Notes: David cedrick 6-19 (Same As: l 22:00: Effexor) Januvia No Notes: Memoria 6-19 (Same as: l 22:00: Januvia) docusate No Notes: Memoria sodium 100 -19 (Same as: l mg oral 22:00: Colace) capsule (Do Not Crush) Enoxaparin No Notes: Memor ia 6-19 (Same as: l 22:00: Lovenox) Brimonidine No Notes: David cedrick tartrate 6-19 (Same as: l 1.5 MG/ML 22:00: Alphagan-P He r[place] Ophthalmic 00 ) Solution dexmedetomi No Notes: David cedrick dine 200 02-17 (Same as: l microgram 21:38: Precedex) [place] 00 potassium No Notes: Memori a phosphate + -19 (Same as: l Sodium 21:37: K [place] Chloride 00 Phosphate. 0.9% IV 250 ) 1 mMol mL phoshate has 1.47 mEq potassium Infuse over 4 hours sodium No Special Memoria phosphate + 6-19 Instructio l Sodium 21:37: ns: FOR [place] Chloride 00 ICU USE 0.9% IV 250 ONLY mL potassium No Notes: Memori a chloride 02-17 (Same as: l 21:37: Potassium [place] 00 Chloride) Calcium No Notes: Memoria Carbonate - (Same As: l 500 MG 21:37: Tums) [place] Chewable 00 Calcium Tablet Carbonate 500 mg = 200 mg elemental calcium Dose = mg calcium carbonate ( mg elemental calcium) Magnesium No Notes: Memori a Oxide 02-17 (Same as: l 21:37: Mag-Ox [place] 00 400) Magnesium oxide 051pm=060w g elemental magnesium Dose=____m g magnesium oxide (___mg elemental magnesium) Calcium No Special Memoria Gluconate 02-17 Instructio l 21:37: ns: FOR [place] 00 ICU USE ONLY Neutra-Phos No Notes: David cedrick -19 (Same as: l 21:37: Neutra-Bhupinder [place] 00 s) Each 1.25 gm pkt has 250mg phosphorou s. Mix w/2.5oz water and stir. Magnesium No Special Memor ia Sulfate 02-17 Instructio l 21:37: ns: FOR [place] 00 ICU USE ONLY Saline No Notes: Memoria Flush 0.9% - (Same as: l 21:37: BD [place] 00 Posiflush) Glucose 50 No 1,000 mL, Me moria MG/ML / 02-17 Rate: 125 l Sodium 21:37: ml/hr, [place] Chloride 00 Infuse 0.0769 over: 8 MEQ/ML hr, Route: Injectable IV, Dosing Solution Weight 120 kg, Total Volume: 1,000, Start date: 02/17/15 16:37:00, Duration: 30 day, Stop date: 03/19/15 16:36:00 Albuterol No Notes: Memori a 0.833 MG/ML 02-17 (Same as: l / 21:37: Duoneb) Ipratropium 00 [place] 0.167 MG/ML Inhalant Solution Bisacodyl No Notes: Memori a 02-17 (Same As: l 21:37: Dulcolax, [place] 00 Bisco-Lax) Acetaminoph No Notes: Do M emoria en 02-17 not exceed l 21:37: 4 gm/day. [place] 00 (Same as: Tylenol) NovoLOG No Notes: Memoria FlexPen 02-17 Roll in l 21:30: palms of [place] 00 hands gently; Do not shake vigorously . (Same as: NovoLOG) "single patient use only" Stable for 28 days at room temperatur e. Expires in days from ____Date Humalog No 10 unit, Memori a 02-17 Route: l 21:30: SUB-Q, [place] 00 TID-Before Meals, Dosing Weight 120, kg, [...] 30 day, Stop date: 03/19/15 13:40:00 Sodium 2015-0 No 1,000 mL, Memori a Chloride 02-17 1,000 l 0.154 17:06: ml/hr, [place] MEQ/ML 00 Infuse Injectable Over: 1 Solution Hour, Route: IV, ONCE, Priority: STAT, Dosing Weight 127.273 kg, Start date: 02/17/15 12:06:00, Duration: 1 doses or times, Stop date: 02/17/15 12:06:00 Keppra 2014-0 No 1,000 mg, Memori a - 100 mL, l 16:07: Route: IV, [place] Drug form: INJ, ONCE, Dosing Weight 127.273, kg, Start date: 02/17/15 11:07:00, Stop date: 02/17/15 11:07:00 Ativan 2014-0 No 1 mg, Memoria 02-17 Route: l 16:06: IVP, Drug [place] 00 form: INJ, ONCE, Dosing Weight 127.273, [...] Brimonidine Yes 1 drp, David cedrick tartrate 619 BOTH EYES, l 1.5 MG/ML 15:47: BID, [...] Memori a 6-19 SUB-Q, l 15:44: TID-Before [place] 00 Meals, 0 Refill(s) Lantus Yes 30 unit, Memoria 6-19 SUB-Q, l 15:44: Bedtime, 0 [place] 00 Refill(s) busPIRone 5 Yes 5 mg = 1 Me moria mg oral 6-19 tab, PO, l tablet 15:43: TID, 0 [place] 00 Refill(s) venlafaxine Yes 75 mg = 1 M emoria 75 mg oral 6-19 tab, PO, l tablet 15:42: Daily, 0 [place] 00 Refill(s) Alprazolam No 1 mg, PO, Me moria 6-19 Bedtime, 0 l 15:40: Refill(s) [place] 00 docusate Yes 200 mg = 2 Mem oria sodium 100 6 cap, PO, l mg oral 15:34: BID, 0 [place] capsule 00 Refill(s) Saline No Notes: Memoria Flush 0.9% 02-17 (Same as: l 14:43: BD [place] 00 Posiflush) Naloxone No Notes: Memoria 6-19 Same as l 14:41: Narcan [place] 00 Albuterol 2013-09 Yes 3 ml, Memoria 0.833 MG/ML 0-11 INHALATION l / 17:55: , QID, # [place] Ipratropium 00 60 ea, 0 [place] Refill(s) 0.167 MG/ML Inhalant Solution [DuoNeb] {2013-09 Yes Special Memoria (Methylpred 0-11 Instructio l nisolone 4 17:55: ns: Take Her andujar MG Oral 00 with or Tablet without [Medrol]) } food Pack [Medrol Dosepak] Doxycycline 2013-09 Yes 100 mg = 1 Memoria 100 MG Oral 0-11 cap, PO, l Capsule 17:55: [id number], # Herm deepa 00 14 cap, 0 Refill(s) Prednisone 2013-09 No Notes: Memor ia 0-11 Take with l 14:00: food. [place] 00 Budesonide 2013-09 No Notes: Memor ia 0.25 MG/ML 0-10 (Same As: l Inhalant 14:28: Pulmicort) Her andujar Solution 00 [Pulmicort] Azithromyci 2013-09 No Notes: David cedrick n 0-10 Same as: l 04:00: Zithromax [place] 00 Fenofibrate 2013-09 No Notes: David cedrick 0-10 (Same as: l 02:00: Tricor) [place] 00 Effexor XR 2013-09 No Notes: Do Me moria 0-09 not open, l 14:00: crush, or chew. (Same As: Effexor XR) One-A-Day 2013-09 No Notes: Memori a Men 50 Plus 0-09 Give with l 14:00: food. (Same As: Stress 600 with Zinc) Influenza 2013-09 No Notes: Memori a Virus 0-09 (Same as: l Vaccine, 14:00: Fluzone Rudy n Inactivated 00 [place]- nt) (H3N2)-like virus (A-[place] [facility] [place] X-175C) strain / Influenza Virus Vaccine, Inactivated A-[place]- , IVR-148 (H1N1) strain / Influenza Virus Vaccine, Inactivated , B---lik Furosemide 2013-09 No Notes: Memor ia 0-09 (Same as: l 14:00: Lasix) May [place] 00 cause GI upset. Give with food or milk. Docusate 2013-09 No Notes: Memoria 0-09 (Same as: l 14:00: Colace) [place] (Do Not Crush) Vitamin D3 2013-09 No Notes: Memor ia 0-09 Same as l 14:00: Vitamin D3 [place] aspirin 2013-09 No Notes: Memoria 0-09 Take with l 14:00: food. [place] 00 Amlodipine 2013-09 No Notes: Memor ia 0-09 (Same as: l 14:00: Norvasc) [place] 00 Amiodarone 2013-09 No Notes: Memor ia 0-09 (Same as: l 14:00: Cordarone) [place] 00 Alprazolam 2013-09 No Notes: Memor ia 0-09 With food l 14:00: or milk [place] 00 (Same as: Xanax) Enoxaparin 2013-09 No Notes: Memor ia 0-09 (Same as: l 13:00: Lovenox) [place] Thyroxine 2013-09 No Notes: Memori a 0-09 Take 1 l 11:30: hour [place] 00 before or 2 hours after meal; Enteral feeds may interefere with the absorption of this medication . (Same as:Levothr oid) Albuterol 2013-09 No Notes: Memori a 0.833 MG/ML 0-09 (Same as: l / 08:00: Duoneb) [place] Ipratropium 00 [place] 0.167 MG/ML Inhalant Solution methylPREDN 2013-09 No Notes: David cedrick ISolone 0-09 (Same l SODium 05:00: as:Solu-ME Padmini nn SUCCinate 00 DROL, A-Methapre d) Doxycycline 2013-09 No Notes: NO M emoria 0-09 MILK/ANTAC l 05:00: IDS/IRON [place] 00 Take 1 hour before or 2 hours after dairy products Levemir 2013-09 No Notes: Memoria 0-09 Same as l 04:45: Levemir [place] 00 "single patient use only" Trazodone 2013-09 No Notes: Memori a 0-09 (Same As: l 04:38: Desyrel) [place] 00 Risperidone 2013-09 No Notes: David cedrick 0-09 (Same as: l 04:38: Risperdal) metoprolol 2013-09 No Notes: Memor ia tartrate 0-09 (Same as: l 04:37: Lopressor) Lisinopril 2013-09 No Notes: Memor ia 0-09 (Same as: l 04:37: Prinivil, [place] 00 Zestril) Alprazolam 2013-09 No Notes: Memor ia 0-09 With food l 04:35: or milk (Same as: Xanax) Insulin, 2013-09 No Notes: Memoria Aspart, 0-09 Roll in l Human 04:33: palms of hands gently; Do not shake [...] 2013-09 Yes Special Mem oria ry Home 009 Instructio l Medication 04:18: ns: [place] 00 Unknown eye drops; filled at [facility] in [place] aspirin 2013-09 Yes 81 mg, PO, David [...] 0-09 (Same as: l / 01:00: Duoneb) [place] Ipratropium 00 [place] 0.167 MG/ML Inhalant Solution [DuoNeb] Saline 2013-09 No Notes: Memoria Flush 0.9% 0-09 (Same as: l 00:26: BD [place] 00 Posiflush) venlafaxine 2012-09 Yes 150mg Take 150 U nivers XR (EFFEXOR 1-22 mg by ity of XR) 150 mg 09:36: mouth [place] 24 hr 18 daily with Medical capsule breakfast. Branch brimonidine 2012-09 Yes 1[drp] Place 1 U nivers (ALPHAGAN) 1-22 Drop in ity of 0.2 % 09:36: both eyes [place] ophthalmic 18 2 (two) Medica l solution times Branch daily. lisinopril 2012-09 Yes 20mg Take 20 mg U nivers (PRINIVIL,Z 1-22 by mouth ity of ESTRIL) 20 09:36: daily. [place] mg tablet 18 Medical Branch SENNOSIDES 2012-09 Yes Take by [facility] ers (SENOKOT 1-22 mouth. ity of ORAL) 09:36: Indication [place] 18 s: take 2 Medical tabs by Branch mouth at bedtime amLODIPine 2012-09 Yes 10mg Take 10 mg U nivers (NORVASC) 1-22 by mouth ity of 10 mg 09:36: daily. [place] tablet 18 Medical Branch latanoprost 2012-09 Yes 1[drp] 1 Drop Un jewels (XALATAN) -22 every ity of 0.005 % 09:36: evening. [place] ophthalmic 18 Medical drops Branch risperidone 2012-09 Yes 4mg Take 4 mg U nivers (RISPERDAL) -22 by mouth ity of 3 mg tablet 09:36: at [place] [address] bedtime. Medical Branch acetaminoph 2012-09 Yes Take [...] by mouth ity of THIAGO) 09:36: daily. [place] tablet 18 Medical Branch traZODONE 2012-09 Yes 50mg Take 50 mg Un jewels (DESYREL) 1-22 by mouth ity of 50 mg 09:36: at [place] tablet 18 bedtime. Medical Branch magnesium 2012-09 Yes 30mL Take 30 mL Un jewels hydroxide 1-22 by mouth ity of (MILK OF 09:36: daily. [place] MAGNESIA) Medical 400 mg/5 mL [place] suspension insulin 2012-09 Yes 13U inject 13 Unive rs glargine 1-22 Units ity of (LANTUS) 09:36: under the [facility] 100 unit/mL 18 skin at Medic al injection bedtime. Branch venlafaxine 2012-09 Yes 150mg Take 150 U nivers XR (EFFEXOR 1-22 mg by ity of XR) 150 mg 09:36: mouth [place] 24 hr 18 daily with Medical capsule breakfast. Branch brimonidine 2012-09 Yes 1[drp] Place 1 U nivers (ALPHAGAN) -22 Drop in ity of 0.2 % 09:36: both eyes [place] ophthalmic 2 (two) Medica l solution times [place] daily. lisinopril 2012-09 Yes 20mg Take 20 mg U nivers (PRINIVIL,Z 1-22 by mouth ity of ESTRIL) 20 09:36: daily. [place] mg tablet 18 Medical Branch SENNOSIDES 2012-09 Yes Take by [facility] ers (SENOKOT 1-22 mouth. ity of ORAL) 09:36: Indication [place] [address] s: take 2 Medical tabs by Branch mouth at bedtime amLODIPine 2012-09 Yes 10mg Take 10 mg U nivers (NORVASC) 1-22 by mouth ity of 10 mg 09:36: daily. [place] tablet 18 Medical Branch latanoprost 2012-09 Yes 1[drp] 1 Drop Un jewels (XALATAN) 1-22 every ity of 0.005 % 09:36: evening. [place] ophthalmic Medical drops Branch risperidone 2012-09 Yes 4mg Take 4 mg U nivers (RISPERDAL) -22 by mouth ity of 3 mg tablet 09:36: at [place] [address] bedtime. Medical Branch acetaminoph 2012-09 Yes Take [...] mouth ity of 50 mg 09:36: at [place] tablet 18 bedtime. Medical Branch magnesium 2012-09 Yes 30mL Take 30 mL Un jewels hydroxide 22 by mouth ity of (MILK OF 09:36: daily. [place] MAGNESIA) 18 Medical 400 mg/5 mL [place] suspension insulin 2012-09 Yes 13U inject 13 Unive rs glargine 1-22 Units ity of (LANTUS) 09:36: [place] the [place] 100 unit/mL 18 skin at Medic al injection bedtime. Branch venlafaxine 2012-09 Yes 150mg Take 150 U nivers XR (EFFEXOR 1-22 mg by ity of XR) 150 mg 09:36: mouth [place] 24 hr 18 daily with Medical capsule breakfast. Branch brimonidine 2012-09 Yes 1[drp] Place 1 U nivers (ALPHAGAN) 1-22 Drop in ity of 0.2 % 09:36: both eyes [place] ophthalmic 18 2 (two) Medica l solution times [place] daily. lisinopril 2012-09 Yes 20mg Take 20 mg U nivers (PRINIVIL,Z 1-22 by mouth ity of ESTRIL) 20 09:36: daily. [place] mg tablet 18 Medical Branch SENNOSIDES 2012-09 Yes Take by Univ ers (SENOKOT 1-22 mouth. ity of ORAL) 09:36: Indication [place] 18 s: take 2 Medical tabs by Branch mouth at bedtime amLODIPine 2012-09 Yes 10mg Take 10 mg U nivers (NORVASC) -22 by mouth ity of 10 mg 09:36: daily. [place] tablet 18 Medical Branch latanoprost 2012-09 Yes 1[drp] 1 Drop Un jewels (XALATAN) -22 every ity of 0.005 % 09:36: evening. [place] ophthalmic 18 Medical drops Branch risperidone 2012-09 Yes 4mg Take 4 mg U nivers (RISPERDAL) 22 by mouth ity of 3 mg tablet 09:36: at [place] 18 bedtime. Medical Branch acetaminoph 2012-09 Yes Take by Uni vers en (MAPAP) -22 mouth ity of 325 mg 09:36: every 4 [place] tablet 18 (four) Medical hours as Branch needed. ALPRAZolam 2012-09 Yes .5mg Take 0.5 Uni vers (XANAX) 0.5 1-22 mg by ity of mg tablet 09:36: mouth 2 [place] 18 (two) Medical times Branch daily. Also takes one at bedtime multivitami 2012-09 Yes 1{tbl} Take 1 Tab Univers n (TAB A -22 by mouth ity of THIAGO) 09:36: daily. [place] tablet 18 Medical Branch traZODONE 2012-09 Yes 50mg Take 50 mg Un jewels (DESYREL) 22 by mouth ity of 50 mg 09:36: at [facility] 18 bedtime. Medical Branch magnesium 2012-09 Yes 30mL Take 30 mL Un jewels hydroxide 22 by mouth ity of (MILK OF 09:36: daily. [place] MAGNESIA) 18 Medical 400 mg/5 mL Branch suspension insulin 2012-09 Yes 13U inject 13 Unive rs glargine 1-22 Units ity of (LANTUS) 09:36: under the [facility] s 100 unit/mL 18 skin at Medic al injection bedtime. Branch venlafaxine 2012-09 Yes 150mg Take 150 U nivers XR (EFFEXOR 1-22 mg by ity of XR) 150 mg 09:36: mouth [place] 24 hr 18 daily with Medical capsule breakfast. Branch brimonidine 2012-09 Yes 1[drp] Place 1 U nivers (ALPHAGAN) -22 Drop in ity of 0.2 % 09:36: both eyes [place] ophthalmic 18 2 (two) Medica l solution times Branch daily. lisinopril 2012-09 Yes 20mg Take 20 mg U nivers (PRINIVIL,Z -22 by mouth ity of ESTRIL) 20 09:36: daily. [place] mg tablet 18 Medical Branch SENNOSIDES 2012-09 Yes Take by Univ ers (SENOKOT - mouth. ity of ORAL) 09:36: Indication [place] 18 s: take 2 Medical tabs by Branch mouth at bedtime amLODIPine 2012-09 Yes 10mg Take 10 mg U nivers (NORVASC) 09-22 by mouth ity of 10 mg 09:36: daily. [place] tablet 18 Medical Branch latanoprost 2012-09 Yes 1[drp] 1 Drop Un jewels (XALATAN) 09-22 every ity of 0.005 % 09:36: evening. [place] ophthalmic Medical drops Branch risperidone 2012-09 Yes 4mg Take 4 mg U nivers (RISPERDAL) 09-22 by mouth ity of 3 mg tablet 09:36: at [place] [address] bedtime. Medical Branch acetaminoph 2012-09 Yes Take by Uni vers en (MAPAP) 09-22 mouth ity of 325 mg 09:36: every 4 [place] tablet 18 (four) Medical hours as Branch needed. ALPRAZolam 2012-09 Yes .5mg Take 0.5 Uni vers (XANAX) 0.5 -22 mg by ity of mg tablet 09:36: mouth 2 [place] 18 (two) Medical times Branch daily. Also takes one at bedtime multivitami 2012-09 Yes 1{tbl} Take 1 Tab Univers n (TAB A 09-22 by mouth ity of THIAGO) 09:36: daily. [place] tablet 18 Medical Branch traZODONE 2012-09 Yes 50mg Take 50 mg Un jewels (DESYREL) 09-22 by mouth ity of 50 mg 09:36: at [place] tablet 18 bedtime. Medical Branch magnesium 2012-09 Yes 30mL Take 30 mL Un jewels hydroxide 22 by mouth ity of (MILK OF 09:36: daily. [place] MAGNESIA) Medical 400 mg/5 mL Branch suspension insulin 2012-09 Yes 13U inject 13 Unive rs glargine - Units ity of (LANTUS) 09:36: [place] the [place] 100 unit/mL 18 skin at Medic al injection bedtime. Branch Levothyroxi 2012-09 Yes Take by Uni vers ne - mouth ity of (TIROSINT) 09:36: daily. [place] 25 mcg Cap 17 Medical Branch amiodarone 2012-09 Yes 200mg Take 200 Un jewels (CORDARONE) 1-22 mg by ity of 200 mg 09:36: mouth [place] tablet 17 daily. Medical Branch Levothyroxi 2012-09 Yes Take by Uni vers ne 1-22 mouth ity of (TIROSINT) 09:36: daily. [place] 25 mcg Cap 17 Medical Branch amiodarone 2012-09 Yes 200mg Take 200 Un jewels (CORDARONE) 1-22 mg by ity of 200 mg 09:36: mouth [place] tablet 17 daily. Medical Branch Levothyroxi 2012-09 Yes Take by Uni vers ne 1-22 mouth ity of (TIROSINT) 09:36: daily. [place] 25 mcg Cap 17 Medical Branch amiodarone 2012-09 Yes 200mg Take 200 Un jewels (CORDARONE) 1-22 mg by ity of 200 mg 09:36: mouth [place] tablet 17 daily. Medical Branch Levothyroxi 2012-09 Yes Take by Uni vers ne 1-22 mouth ity of (TIROSINT) 09:36: daily. [place] 25 mcg Cap 17 Medical Branch amiodarone 2012-09 Yes 200mg Take 200 Un jewels (CORDARONE) 1-22 mg by ity of 200 mg 09:36: mouth [place] tablet 17 daily. Medical Branch metoprolol Yes Univers tartrate 8-01 ity [...] 00:00: [place] ophthalmic 00 Medical solution Branch testosteron Yes 100mg 0.5 mL by [...] 20 7-19 ity of mg tablet 00:00: 00 Medical Branch HUMALOG 100 Yes Univer s unit/mL 7-02 ity of injection 00:00: Medical Branch HUMALOG 100 Yes Univer s unit/mL 7-02 ity of injection 00:00: Medical Branch HUMALOG 100 Yes Univer s unit/mL 7-02 ity of injection 00:00: Medical Branch HUMALOG 100 Yes Univer s unit/mL 7-02 ity of injection 00:00: Medical Branch BACLOFEN [...] 4-04 by mouth ity of 00:00: daily. [place] Medical Branch Lisinopril Lisinopril Yes Jenna 1 tablet Common [facility] Aspirin Aspirin Yes Jenna 1 tablet Comm on [place] [facility] Betaxolol Betaxolol Yes Jenna 1 drop Co mmon HCl HCl [place] into Spirit affected - [facility] eye [facility] Lisinopril Lisinopril Yes Jenna 1 tablet Common [facility] Clonidine Clonidine Yes Jenna TAKE 1 Co mmon HCl HCl [place] TABLET BY Spiri t MOUTH - [facility] TWICE St DAILY [facility] Atorvastati Atorvastati Yes Jenna TAKE 1 Common n Calcium n Calcium [place] TABLET BY Spirit MOUTH - [facility] EVERY St NIGHT AT [facility] BEDTIME [facility] Husseinalishajose roberto Savagealishajose roberto Yes Jenna TAKE 1 Common [place] TABLET BY Spiri t MOUTH - [facility] DAILY [facility] Venlafaxine Venlafaxine Yes Jenna 1 capsule Common HCl ER HCl ER [place] with food S pirit [facility] Latanoprost Latanoprost Yes Jenna INT 1 GTT Common [place] IN OU QHS. Spir it [facility] Trazodone Trazodone Yes Jenna TK 1 T PO Common HCl HCl [place] QHS. Spirit [facility] BusPIRone BusPIRone Yes Jenna 1 tablet Common HCl HCl [facility] Levothyroxi Levothyroxi Yes Jenna 1 tablet Common ne Sodium ne Sodium [place] on an Spirit empty - CHI stomach in [facility] Venlafaxine Venlafaxine Yes Jenna TAKE 1 Common HCl HCl [place] TABLET BY Spiri t MOUTH - [facility] EVERY DAY [facility] Furo[facility] Furosemide Yes Jenna 1 tablet Common [facility] BD Pen BD Pen Yes Jenna INJECT Common Needle Disha Needle Disha [place] USING Spirit U/F U/F INSULIN D. [facility] Divalproex Divalproex Yes Jenna as Co mmon Sodium ER Sodium ER [place] directed [facility] Vitamin C Vitamin C Yes Jenna 1 tablet Common [facility] [facility] Docusate Docusate Yes Jenna 2 capsule C ommon Sodium Sodium [place] as needed S pirit [facility] Xarelto Xarelto Yes Jenna 20 MG PO Comm on [place] DAILY [facility] Baclofen Baclofen Yes Jenna TK 1 T PO C ommon Millender Q 8 H PRN. Spir it [facility] Lasix Lasix Yes Jenna 40 MG PO Common [place] DAILY [facility] Tresiba Tresiba Yes Jenna 70 units Comm on FlexTouch FlexTouch [facility] Amiodarone Amiodarone Yes Jenna TAKE 1 Common HCl HCl [place] TABLET BY Spiri t MOUTH - CHI EVERY DAY. [facility] Risperidone Risperidone Yes Jenna TAKE 3 Common [place] TABLETS BY Spir it MOUTH ONCE - CHI A DAY. [facility] Symbicort Symbicort Yes Jenna inhale 2 Common [place] puffs po Spirit bid. [facility] Amlodipine Amlodipine Yes Jenna TAKE 1 Common Besylate Besylate [place] TABLET BY Spirit MOUTH - CHI DAILY [facility] Immunizations Ordered Immunization Filled Immunization Date Status Commen ts Source Name Name influenza virus 2017-06-02 Completed [facility] vaccine, inactivated 21:27:00 Herm deepa influenza virus 2014-06-09 Completed [facility] vaccine, inactivated 14:35:00 Herm deepa Vital Signs Vital Name Observation Time Observation Value Comments Source Respitory Rate 2017-06-10 22:17:00 Memori al [place] Systolic (mm Hg) 2017-06-10 22:17:00 David rial [place] Diastolic (mm Hg) 2017-06-10 22:17:00 Mem orial [place] Temperature Oral (F) 2017-06-10 22:17:00 98.2 F Memorial [place] Heart Rate 2017-06-10 22:17:00 Memorial [place] Systolic (mm Hg) 2017-06-10 17:00:00 David rial [place] Diastolic (mm Hg) 2017-06-10 17:00:00 Mem orial [place] Respitory Rate 2017-06-10 17:00:00 Memori al [place] Heart Rate 2017-06-10 17:00:00 Memorial [place] Temperature Oral (F) 2017-06-10 17:00:00 98.3 F Memorial [place] Heart Rate 2017-06-10 12:50:00 Memorial [place] Temperature Oral (F) 2017-06-10 12:50:00 98.2 F Memorial [place] Respitory Rate 2017-06-10 12:50:00 Memori al [place] Systolic (mm Hg) 2017-06-10 12:50:00 David rial [place] Diastolic (mm Hg) 2017-06-10 12:50:00 Mem orial [place] BMI Calculated 2017 16:42:00 Memori al [place] Weight 2017 16:42:00 [facility] [place] Height 2017 16:42:00 185.42 cm Memorial [place] BMI Calculated 2017 15:56:00 Memori al [place] Weight 2017 15:56:00 Memorial [place] Height 2017 15:56:00 185.42 cm Memorial [place] BMI Calculated 2017 10:33:00 Memori al [place] Height 2017 10:33:00 185.42 cm Memorial [place] Weight 2017 10:33:00 [facility] [place] Heart Rate 2016-07-30 18:00:00 [facility] [place] Respitory Rate 2016-07-30 18:00:00 Memori al [place] Systolic (mm Hg) 2016-07-30 18:00:00 David rial [place] Diastolic (mm Hg) 2016-07-30 18:00:00 [facility] [place] Temperature Oral (F) 2016-07-30 18:00:00 97.5 F [facility] [place] Systolic (mm Hg) 2016-07-30 14:00:00 [facility] [place] Diastolic (mm Hg) 2016-07-30 14:00:00 [facility] [place] Heart Rate 2016-07-30 14:00:00 [facility] Respitory Rate 2016-07-30 14:00:00 [facility] [place] Temperature Oral (F) 2016-07-30 14:00:00 97.5 F [facility] [place] Respitory Rate 2016-07-30 13:39:00 [facility] [place] Temperature Oral (F) 2016-07-30 06:19:00 98.1 F [facility] Heart Rate 2016-07-30 06:19:00 [facility] [place] Systolic (mm Hg) 2016-07-30 06:19:00 [facility] [place] Diastolic (mm Hg) 2016-07-30 06:19:00 [facility] [place] Weight 2016-07-28 14:21:00 [facility] [place] Weight 2016-07-28 09:33:00 [facility] [place] Height 2016-07-28 09:33:00 182.88 cm [facility] [place] BMI Calculated 2016-07-28 09:33:00 [facility] Weight 2016-07-28 02:47:00 [facility] [place] BMI Calculated 2016-07-28 02:47:00 [facility] [place] Height 2016-07-28 02:47:00 180.34 cm [facility] Respitory Rate 2016-05-30 18:30:00 [facility] [place] Systolic (mm Hg) 2016-05-30 18:30:00 [facility] [place] Diastolic (mm Hg) 2016-05-30 18:30:00 [facility] [place] Temperature Oral (F) 2016-05-30 18:30:00 98.6 F [facility] [place] Respitory Rate 2016-05-30 18:00:00 [facility] [place] Systolic (mm Hg) 2016-05-30 18:00:00 [facility] [place] Diastolic (mm Hg) 2016-05-30 18:00:00 [facility] [place] Respitory Rate 2016-05-30 17:30:00 [facility] [place] Systolic (mm Hg) 2016-05-30 17:30:00 [facility] [place] Diastolic (mm Hg) 2016-05-30 17:30:00 [facility] [place] Heart Rate 2016-05-30 15:14:00 [facility] [place] BMI Calculated 2016-05-30 14:36:00 [facility] [place] Weight 2016-05-30 14:36:00 [facility] [place] Heart Rate 2016-05-30 14:36:00 [facility] [place] Height 2016-05-30 14:36:00 182.88 cm [facility] [place] Temperature Oral (F) 2016-05-30 14:36:00 98.7 F [facility] [place] Systolic (mm Hg) 2015-02-19 16:00:00 David [facility] [place] Diastolic (mm Hg) 2015-02-19 16:00:00 [facility] [place] Respitory Rate 2015-02-19 16:00:00 [facility] [place] Systolic (mm Hg) 2015-02-19 15:00:00 [facility] [place] Diastolic (mm Hg) 2015-02-19 15:00:00 Mem o[facility] [...] Oral (F) 2015-02-18 12:48:00 98.5 F [facility] [place] Heart Rate 2015-02-17 18:50:00 [facility] [place] Height 2015-02-17 18:41:00 185.42 cm [facility] [place] Weight 2015-02-17 18:41:00 [facility] BMI Calculated 2015-02-17 18:41:00 [facility] [place] Heart Rate 2015-02-17 17:52:00 [facility] Heart Rate 2015-02-17 17:34:00 [facility] Weight 2015-02-17 14:33:00 [facility] [place] BMI Calculated 2015-02-17 14:33:00 [facility] [place] Height 2015-02-17 14:33:00 185.42 cm [facility] [place] Diastolic (mm Hg) 2014-06-11 17:24:00 [facility] [place] Systolic (mm Hg) 2014-06-11 17:24:00 [facility] [place] Respitory Rate 2014-06-11 17:24:00 [facility] [place] Heart Rate 2014-06-11 17:24:00 [facility] Temperature Oral (F) 2014-06-11 17:24:00 97.4 F [facility] [place] Respitory Rate 2014-06-11 12:27:00 [facility] [place] Heart Rate 2014-06-11 12:26:00 [facility] [place] Temperature Oral (F) 2014-06-11 12:26:00 98.5 F [facility] [place] Systolic (mm Hg) 2014-06-11 12:26:00 David [facility] [place] Diastolic (mm Hg) 2014-06-11 12:26:00 [facility] [place] Respitory Rate 2014-06-11 12:26:00 [facility] [place] Systolic (mm Hg) 2014-06-11 05:07:00 [facility] [place] Diastolic (mm Hg) 2014-06-11 05:07:00 [facility] [place] Temperature Oral (F) 2014-06-11 05:07:00 98.4 F [facility] [place] Heart Rate 2014-06-11 05:07:00 [facility] [place] BMI Calculated 2014-06-09 05:37:00 [facility] [place] Weight 2014-06-09 05:37:00 [facility] [place] Height 2014-06-09 05:37:00 185.42 cm [facility] Height 2014-06-09 00:05:00 185.42 cm [facility] Weight 2014-06-09 00:05:00 [facility] [place] BMI Calculated 2014-06-09 00:05:00 [facility] [place] Procedures Procedure Date / Time Performed Performing Clinician Hood hernandez CT LUMBAR SPINE WO 2022-01-14 14:48:02 Andrew Oviedo [facility] CONSENT/REFUSAL FOR 2022-01-14 14:08:22 Doctor Unassigned, No Un [facility] DIAGNOSIS AND [facility] TREATMENT ASSIGNMENT OF BENEFITS 2022-01-14 14:07:33 Doctor Unassigned, No [facility] XR BONE SURVEY LTD 2021-12-28 15:13:00 Erlin [facility] ASSIGNMENT OF BENEFITS 2021-12-28 13:11:23 Doctor Unassigned, No [facility] Aortic aneurysm repair [facility] Encounters Start End Encounter Admission Attending Care Care Encounter Source Date/Time Date/Time Type Type Clinicians Facility Department ID 2021-11-30 Outpatient [facility] [id number] [place] 15:40:57 [id number] [facility] 2021-11-28 Outpatient [facility] [id number] [place] 14:03:42 [id number] [facility] 2021-09-26 Outpatient Millender, STLML[facility] [id number] Common 10:59:02 Jenna [id number] [facility] 2022-01-14 2022-01-14 Outpatient [facility] OVIEDO [facility] [id number] [facility] 09:07:59 23:59:00 ANDREW monte [facility] 2022-01-14 2022-01-14 [facility] [id number] [facility] 09:07:59 23:59:00 Encounter Andrew Jayden LOBITO [id number] ity [facility] [id number] [facility] [id number] [facility] [address] 2021-12-28 2021-12-28 [facility] [id number] Univers 09:51:42 23:59:00 Encounter Erlin ROBIN [id number] it[facility] [id number] [facility] [id number] [facility] [address] 2021-12-28 2021-12-28 [facility] [id number] Univers 08:13:17 09:50:00 Encounter Andrew ROBIN [id number] [facility] [id number] [facility] [id number] [facility] [address] 2021-12-28 2021-12-28 [facility] [id number] Univers 00:00:00 09:50:00 ANDREW ity [facility] 2021-12-28 2021-12-28 Orders Doctor HOPE [id number] Univers 00:00:00 00:00:00 Only Unassigned, FIDE [id number] ity of [place] [facility] [id number] [facility] [id number] [facility] [address] 2019-09-23 2019-09-23 [facility] [id number] Common 15:09:00 15:09:00 t [facility] [address] [facility] 2019-09-09 2019-09-09 [facility] [id number] Common 11:30:00 11:30:00 t [facility] [address] [facility] 2019-08-05 2019-08-05 [facility] [id number] Common 14:57:00 14:57:00 t [facility] [address] [facility] 2019-08-02 2019-08-02 [facility] [id number] Common 14:24:00 14:24:[address] [facility] 2019-07-26 2019-07-26 [facility] [id number] Common 13:14:00 13:14:[address] [facility] 2019-07-20 2019-07-20 [facility] [id number] Common 09:08:00 09:08:[address] [facility] 2019-07-14 2019-07-14 [facility] [id number] Common 15:20:00 15:20:[address] [facility] 2019-06-24 2019-06-24 [facility] [id number] Common 11:00:00 11:00:[address] [facility] 2019-06-01 2019-06-01 [facility] [id number] Common 12:18:00 12:18:[address] [facility] 2019-05-31 2019-05-31 [facility] [id number] Common 14:36:00 14:36:[address] [facility] 2019-05-27 2019-05-27 [facility] [id number] Common 10:30:00 10:30:[address] [facility] 2019-04-12 2019-04-12 [facility] [id number] Common 14:45:00 14:45:[address] [facility] 2019-03-22 2019-03-22 [facility] [id number] Common 10:30:00 10:30:[address] [facility] 2019-03-08 2019-03-08 [facility] [id number] Common 14:45:00 14:45:[address] [facility] 2019-03-02 2019-03-02 [facility] [id number] Common 10:30:00 10:30:[address] [facility] 2018-12-28 2018-12-28 [facility] [id number] Common 15:15:00 15:15:[address] [facility] 2018-12-10 2018-12-10 [facility] [id number] Common 14:52:00 14:52:00 t [facility] [address] [facility] 2018-11-19 2018-11-19 [facility] [id number] Common 11:30:00 11:30:00 t [facility] [address] [facility] 2018-10-22 2018-10-22 [facility] [id number] Common 11:45:00 11:45:00 t [facility] [address] [facility] 2018-09-18 2018-09-18 [facility] [id number] Common 11:48:00 11:48:00 t [facility] [address] [facility] 2018-09-16 2018-09-16 [facility] [id number] Common 15:42:00 15:42:00 t [facility] [address] [facility] 2017 2017-06-10 Inpatient [facility] [id number] Mem[facility] 10:29:00 22:37:00 [facility] 2017 2017-06-10 Outpatient Katherine, [facility] [id number] 05:29:00 17:37:00 Giancarlo Jade 2016-12-02 2017-01-01 Wound Care [facility] [id number] Mem[facility] 18:13:00 04:59:00 [facility] 2016-12-02 2016-12-31 Outpatient Jennifer, [facility] [id number] 13:13:00 23:59:00 Farhad Johnson 2016-10-02 2016-11-01 Wound [facility] [id number] Mem[facility] 16:00:00 05:59:00 [facility] 2016-10-02 2016-10-31 Outpatient Jennifer [facility] [id number] 10:00:00 23:59:00 Farhad Jade 2016-07-28 2016-07-30 Inpatient [facility] [id number] [facility] 02:46:00 20:34:00 [facility] 2016-07-27 2016-07-30 Outpatient Dionte, [facility] [id number] 20:46:00 14:34:00 Sofi Keane 2016-05-07 2016-06-06 Wound Care [facility] [id number] Memoria 18:08:00 04:59:00 [facility] [place] 04 l [facility] 2016-05-07 2016-06-05 Outpatient Blank, [facility] [id number] 13:08:00 23:59:00 Farhad Genao 2016-05-30 2016-05-30 Emergency [facility] [id number] Memoria 14:35:00 18:49:00 [facility] [place] 03 l [facility] 2016-05-30 2016-05-30 Outpatient Demarcus, [facility] [id number] 09:35:00 13:49:00 Branden 03 2016-02-06 2016-03-07 Wound Care nullFlavo [facility] [id number] Memoria 18:04:00 04:59:00 r [place] 03 l [facility] 2016-02-06 2016-03-06 Outpatient Blank, [facility] [id number] 13:04:00 23:59:00 Farhad Genao 2015-12-12 2016-01-11 Wound Care nullFlavo [facility] [id number] Memoria 18:29:00 04:59:00 r [place] 02 l [facility] 2015-12-12 2016-01-10 Outpatient Blank, [facility] [id number] 13:29:00 23:59:00 Farhad Genao 2015-10-24 2015-11-23 Wound Care nullFlavo [facility] [id number] Memoria 19:00:00 04:59:00 [facility] [place] 01 l [facility] 2015-10-24 2015-11-22 Outpatient Blank, [facility] [id number] 13:00:00 23:59:00 Farhad Genao 2015-09-11 2015-10-11 Wound Care nullFlavo [facility] [id number] Memoria 15:27:00 05:59:00 r [place] 00 l [facility] 2015-09-11 2015-10-10 Outpatient Blank, [facility] [id number] 09:27:00 23:59:00 [facility] 00 2015-09-15 2015-09-16 Outpt Diag nullFlavo [facility] [id number] Memoria 17:54:00 05:59:00 Services r Outpatient 00 l [facility] 2015-09-15 2015-09-15 Outpatient Blank, [id number] 11:54:00 23:59:00 [facility] 00 2015-02-17 2015-02-19 Inpatient nullFlavo [facility] [id number] Memoria 14:32:00 17:39:00 r [place] 02 l [facility] 2015-02-17 2015-02-19 Outpatient Pavithrajavierjo ann, [id number]. [id number]. [id number] 09:32:00 12:39:00 Lloyd [id number] 2405-10-08 2014-06-11 Inpatient nullFlavo [facility] [id number] Memoria 23:44:00 19:30:00 r [place] 01 l [facility] 2014-06-08 2014-06-11 Outpatient Edmundom-Dadgisellee [id number] 18:44:00 14:30:00 , Negro [id number] 01 Results Test Description Test Time Test Comments Results Result Comments Source CHEM PANEL 2017-06-09 10:26:00 Test Item Value Reference Range Interpretation Comme nts eGFR (test code = eGFR) 83 [facility] [id number] 10:26:00 Test Item Value Reference Range Interpretation Comments Calcium Lvl (test code = Calcium Lvl) 9.0 8.5-10.5 [facility] [id number] 10:26:00 Test Item Value Reference Range Interpretation Comments AGAP (test code = AGAP) 8.0 10.0-20.0 [facility] [id number] 10:26:00 Test Item Value Reference Range Interpretation Comments Creatinine Lvl (test code = Creatinine 0.91 0.50-1.40 Lvl) [facility]2017-10-09 10:26:00 Test Item Value Reference Range Interpretation Comments Chloride Lvl (test code = Chloride Lvl) 96 95-109 [facility]2017-10-09 10:26:00 Test Item Value Reference Range Interpretation Comments CO2 (test code = CO2) 37 24-32 [facility]2017-10-09 10:26:00 Test Item Value Reference Range Interpretation Comments Sodium Lvl (test code = Sodium Lvl) 137 135-145 [facility]2017-10-09 10:26:00 Test Item Value Reference Range Interpretation Comments Glucose Lvl (test code = Glucose Lvl) 132 70-99 [facility]2017-10-09 10:26:00 Test Item Value Reference Range Interpretation Comments BUN (test code = BUN) 12 7-22 [facility]2017-10-09 10:26:00 Test Item Value Reference Range Interpretation Comments Potassium Lvl (test code = Potassium 4.0 3.5-5.1 Lvl) [facility]1767[facility] 10:26:00 Test Item Value Reference Range Interpretation Comments Basophils (test code = 0.9 See_Comment [Aut omated message] The Basophils) system which ge nerated this result tra nsmitted reference range : <=1.0. The reference r jose alfredo was not used to int erpret this result as normal/abnormal . [facility]anoOxepteuXWNJHFVJAB3447-81-50 10:26:00 Test Item Value Reference Range Interpretation Comments Segs-Bands # (test code = Segs-Bands #) 5.6 1.5-8.1 [facility]MdjnefkUHGXZKQLPR5951-79-07 10:26:00 Test Item Value Reference Range Interpretation Comments Monocytes # (test code 1.2 See_Comment [Aut omated message] The = Monocytes #) system which generated this result tra nsmitted reference range : <=0.8. The reference r jose alfredo was not used to int erpret this result as normal/abnormal . [facility]anoWokfxqhOAIHAGIMAQ7388-67-79 10:26:00 Test Item Value Reference Range Interpretation Comments Lymphocytes # (test code = Lymphocytes 1.2 1.0-5.5 #) [facility]anoTmjuytyCFTBNCELJZ3243-55-67 10:26:00 Test Item Value Reference Range Interpretation Comments Basophils # (test code 0.1 See_Comment [Aut omated message] The = Basophils #) system which generated this result tra nsmitted reference range : <=0.2. The reference r jose alfredo was not used to int erpret this result as normal/abnormal . [facility]anoOawsurzWFURLOWRVZ9215-79-09 10:26:00 Test Item Value Reference Range Interpretation Comments Eosinophils # (test code 0.2 See_Comment [A utomated message] The = Eosinophils #) system whic h generated this result tra nsmitted reference range : <=0.5. The reference r jose alfredo was not used to int erpret this result as normal/abnormal . [facility]anoYzidhpwYNAOTJHVUL4338-63-55 10:26:00 Test Item Value Reference Range Interpretation Comments Eosinophils (test code = 2.0 See_Comment [A utomated message] The Eosinophils) system which ge nerated this result tra nsmitted reference range : <=4.0. The reference r jose alfredo was not used to int erpret this result as normal/abnormal . [facility]anoBdsupweJCCKRJBLMZ4402-11-68 10:26:00 Test Item Value Reference Range Interpretation Comments Monocytes (test code = Monocytes) 14.8 2.0-12.0 [facility]anoLoxtlgrSPXIXZRWLF7979-93-37 10:26:00 Test Item Value Reference Range Interpretation Comments Lymphocytes (test code = Lymphocytes) 14.9 20.0-40.0 [facility]anoDtauwegSCCUSUIHDN0454-96-06 10:26:00 Test Item Value Reference Range Interpretation Comments Segs (test code = Segs) 67.4 45.0-75.0 [facility]anoKbkrpqpCMOHBIGSUD2277-93-50 10:26:00 Test Item Value Reference Range Interpretation Comments RDW (test code = RDW) 14.4 11.5-14.5 [facility]anoNqlaxiaTEHVEIEYCP2319-91-75 10:26:00 Test Item Value Reference Range Interpretation Comments Platelet (test code = Platelet) 324 133-450 [facility]anoGjzagsbBJJLFNLZYD9808-70-60 10:26:00 Test Item Value Reference Range Interpretation Comments MPV (test code = MPV) 8.9 7.4-10.4 [facility]anoUnfxeoyQAYZPHFCQN6854-69-47 10:26:00 Test Item Value Reference Range Interpretation Comments MCHC (test code = MCHC) 33.7 32.0-36.0 [facility]anoWiwqquhWQJZTUJFLH7411-59-64 10:26:00 Test Item Value Reference Range Interpretation Comments RBC (test code = RBC) 3.48 4.70-6.10 [facility]anoWdgtsrgHNKURKPQIV8112-42-00 10:26:00 Test Item Value Reference Range Interpretation Comments Hgb (test code = Hgb) 10.5 14.0-18.0 [facility]anoJerijmhJTMYDNWUIH1559-54-71 10:26:00 Test Item Value Reference Range Interpretation Comments MCV (test code = MCV) 89.8 80.0-94.0 [facility]anoOajelbzXVRFFRGNOQ3487-11-86 10:26:00 Test Item Value Reference Range Interpretation Comments Hct (test code = Hct) 31.2 42.0-54.0 [facility]anoYrwjscjDMXTTFDXRX7873-65-62 10:26:00 Test Item Value Reference Range Interpretation Comments MCH (test code = MCH) 30.2 pg 27.0-31.0 [facility]anoDrbswdwKXZJZKSZIW4057-01-70 10:26:00 Test Item Value Reference Range Interpretation Comments WBC (test code = WBC) 8.4 3.7-10.4 [facility]HEBTRKNNFIHF6845-25-13 09:36:00 Test Item Value Reference Range Interpretation Comments AGAP (test code = AGAP) 6.7 10.0-20.0 [facility]IkzeqipGCYGQIFEMNRK4753-49-30 09:36:00 Test Item Value Reference Range Interpretation Comments B/C Ratio (test code = B/C Ratio) 17 6-25 [facility] SystemZgacxnrVJXRGJHCCUVF0958-45-46 09:36:00 Test Item Value Reference Range Interpretation Comments Globulin (test code = Globulin) 3.5 2.7-4.2 [facility] SystemDabdxjsNEOKLIUXPVAL7944-25-18 09:36:00 Test Item Value Reference Range Interpretation Comments A/G Ratio (test code = A/G Ratio) 0.5 0.7-1.6 [facility] SystemIhvknbqMCERVVKKOEEU9557-04-42 09:36:00 Test Item Value Reference Range Interpretation Comments eGFR (test code = eGFR) 85 [facility] SystemUxotsnuCRMOHLXBIPTK6301-51-58 09:36:00 Test Item Value Reference Range Interpretation Comments Total Protein (test code = Total 5.2 6.4-8.4 Protein) [facility] SystemPguhssrPXDGEZWBEROK2894-65-84 09:36:00 Test Item Value Reference Range Interpretation Comments Albumin Lvl (test code = Albumin Lvl) 1.7 3.5-5.0 [facility] SystemBonfncvKSBWVFLXOUIT7024-63-84 09:36:00 Test Item Value Reference Range Interpretation Comments ALT (test code = ALT) 18 See_Comment [Auto mated message] The system which ge nerated this result transmit stuart reference range : <=65. The reference range was not used to interpr et this result as cherry l/abnormal. [facility] SystemHgutpwkJQTQOQBOAIAD8716-14-96 09:36:00 Test Item Value Reference Range Interpretation Comments CO2 (test code = CO2) 36 24-32 [facility] SystemRrrknkcPZRWZAXKQRUL4026-30-85 09:36:00 Test Item Value Reference Range Interpretation Comments Calcium Lvl (test code = Calcium Lvl) 9.1 8.5-10.5 [facility] SystemIaposxxXERLNDQAOFGF8261-82-75 09:36:00 Test Item Value Reference Range Interpretation Comments AST (test code = AST) 16 See_Comment [Auto mated message] The system which ge nerated this result transmit stuart reference range : <=37. The reference range was not used to interpr et this result as cherry l/abnormal. [facility] SystemYtifcgwZNHYEWWASKSA7729-53-29 09:36:00 Test Item Value Reference Range Interpretation Comments Alk Phos (test code = Alk Phos) 38 39-136 [facility] SystemZxvxyubEJMBCRDZBVXY6723-13-25 09:36:00 Test Item Value Reference Range Interpretation Comments Bili Total (test code = Bili Total) 0.3 0.2-1.3 [facility] SystemPzinzwcBXYVWYGXDIAG7889-31-20 09:36:00 Test Item Value Reference Range Interpretation Comments Creatinine Lvl (test code = Creatinine 0.88 0.50-1.40 Lvl) [facility] SystemAnkkhssHZIDIBBMYDLA6468-42-45 09:36:00 Test Item Value Reference Range Interpretation Comments Sodium Lvl (test code = Sodium Lvl) 136 135-145 [facility] SystemVjijjduJLCUMUBYCBKK1153-26-38 09:36:00 Test Item Value Reference Range Interpretation Comments Potassium Lvl (test code = Potassium 3.7 3.5-5.1 Lvl) [facility] SystemBukxkksBLYPZSGCPNCN2302-49-70 09:36:00 Test Item Value Reference Range Interpretation Comments Chloride Lvl (test code = Chloride Lvl) 97 95-109 [facility] SystemVnqhpehBGEVZMJICNTG2636-42-58 09:36:00 Test Item Value Reference Range Interpretation Comments BUN (test code = BUN) 15 7-22 [facility] SystemZtlddviBUIPUIHFIMEZ0660-38-45 09:36:00 Test Item Value Reference Range Interpretation Comments Glucose Lvl (test code = Glucose Lvl) 135 70-99 [facility]anoEugnmwmQPCXKCJSOD0538-42-76 09:36:00 Test Item Value Reference Range Interpretation Comments Platelet (test code = Platelet) 327 133-450 [facility]anoBvihwqhFHIWJSCTIS0650-60-83 09:36:00 Test Item Value Reference Range Interpretation Comments MPV (test code = MPV) 8.6 7.4-10.4 [facility]anoIxoodhnFPNVHYRMMG2440-60-47 09:36:00 Test Item Value Reference Range Interpretation Comments Hct (test code = Hct) 30.7 42.0-54.0 [facility]anoBoelltsHVUUFULVBX7209-44-31 09:36:00 Test Item Value Reference Range Interpretation Comments MCV (test code = MCV) 88.8 80.0-94.0 [facility]anoFrsbivnEPTBXWJPDW8404-92-19 09:36:00 Test Item Value Reference Range Interpretation Comments RBC (test code = RBC) 3.46 4.70-6.10 [facility]anoPolaltuCZOBEJAXQD4273-69-96 09:36:00 Test Item Value Reference Range Interpretation Comments Hgb (test code = Hgb) 10.4 14.0-18.0 [facility]XxheqdvADUSEHEBFU9114-67-57 09:36:00 Test Item Value Reference Range Interpretation Comments RDW (test code = RDW) 14.2 11.5-14.5 [facility]QglmgkxSHEKAXRQFL2862-97-00 09:36:00 Test Item Value Reference Range Interpretation Comments MCHC (test code = MCHC) 33.8 32.0-36.0 [facility]anoRjkuzukAYNTBOORRF7761-81-27 09:36:00 Test Item Value Reference Range Interpretation Comments MCH (test code = MCH) 30.0 pg 27.0-31.0 [facility]anoJagxmaqWDXRLYMCNU9289-59-99 09:36:00 Test Item Value Reference Range Interpretation Comments WBC (test code = WBC) 11.4 3.7-10.4 [facility]XpjhaykGKRMFOZHQU8086-70-14 09:36:00 Test Item Value Reference Range Interpretation Comments Monocytes # (test code 1.5 See_Comment [Aut omated message] The = Monocytes #) system which generated this result tra nsmitted reference range : <=0.8. The reference r jose alfredo was not used to int erpret this result as normal/abnormal . [facility]anoGuvepvkZKPCOJLWSJ7508-50-80 09:36:00 Test Item Value Reference Range Interpretation Comments Eosinophils # (test code 0.2 See_Comment [A utomated message] The = Eosinophils #) system whic h generated this result tra nsmitted reference range : <=0.5. The reference r jose alfredo was not used to int erpret this result as normal/abnormal . [facility]anoHibxwucMXOMUDIGFL4226-81-52 09:36:00 Test Item Value Reference Range Interpretation Comments Lymphocytes # (test code = Lymphocytes 1.3 1.0-5.5 #) [facility]anoMgucgbqVIWXORUMGB5741-02-94 09:36:00 Test Item Value Reference Range Interpretation Comments Segs-Bands # (test code = Segs-Bands #) 8.3 1.5-8.1 [facility]anoGvaprhjJZTHPDSVWZ9005-52-90 09:36:00 Test Item Value Reference Range Interpretation Comments Eosinophils (test code = 2.0 See_Comment [A utomated message] The Eosinophils) system which ge nerated this result tra nsmitted reference range : <=4.0. The reference r jose alfredo was not used to int erpret this result as normal/abnormal . [facility]anoUlqgpmhPEICVYPWMS1209-34-24 09:36:00 Test Item Value Reference Range Interpretation Comments Monocytes (test code = Monocytes) 13.2 2.0-12.0 [facility]anoUwiyoqcZTACLYHNKO2792-41-86 09:36:00 Test Item Value Reference Range Interpretation Comments Lymphocytes (test code = Lymphocytes) 11.1 20.0-40.0 [facility]anoGlsegvkXUNWMULFYI1775-28-80 09:36:00 Test Item Value Reference Range Interpretation Comments Segs (test code = Segs) 73.2 45.0-75.0 [facility]anoLrpfwprOHJNOFHZMM7875-67-89 09:36:00 Test Item Value Reference Range Interpretation Comments Basophils # (test code 0.1 See_Comment [Aut omated message] The = Basophils #) system which generated this result tra nsmitted reference range : <=0.2. The reference r jose alfredo was not used to int erpret this result as normal/abnormal . [facility]anoKaydjwhQZVGOTFHDE3308-86-73 09:36:00 Test Item Value Reference Range Interpretation Comments Basophils (test code = 0.5 See_Comment [Aut omated message] The Basophils) system which ge nerated this result tra nsmitted reference range : <=1.0. The reference r jose alfredo was not used to int erpret this result as normal/abnormal . [facility]2017-10-04 15:09:00 Test Item Value Reference Range Interpretation Comments B/C Ratio (test code = B/C Ratio) 15 6-25 [facility]2017-10-04 15:09:00 Test Item Value Reference Range Interpretation Comments Globulin (test code = Globulin) 3.7 2.7-4.2 [facility]2017-10-04 15:09:00 Test Item Value Reference Range Interpretation Comments A/G Ratio (test code = A/G Ratio) 0.5 0.7-1.6 [facility]2017-10-04 15:09:00 Test Item Value Reference Range Interpretation Comments AGAP (test code = AGAP) 10.8 10.0-20.0 [facility]2017-10-04 15:09:00 Test Item Value Reference Range Interpretation Comments eGFR (test code = eGFR) 83 [facility]2017-10-04 15:09:00 Test Item Value Reference Range Interpretation Comments Alk Phos (test code = Alk Phos) 43 39-136 [facility]2017-10-04 15:09:00 Test Item Value Reference Range Interpretation Comments Bili Total (test code = Bili Total) 0.3 0.2-1.3 [facility]2017-10-04 15:09:00 Test Item Value Reference Range Interpretation Comments Total Protein (test code = Total 5.4 6.4-8.4 Protein) [facility]2017-10-04 15:09:00 Test Item Value Reference Range Interpretation Comments Calcium Lvl (test code = Calcium Lvl) 8.9 8.5-10.5 [facility]2017-10-04 15:09:00 Test Item Value Reference Range Interpretation Comments Albumin Lvl (test code = Albumin Lvl) 1.7 3.5-5.0 [facility]2017-10-04 15:09:00 Test Item Value Reference Range Interpretation Comments CO2 (test code = CO2) 35 24-32 [facility]2017-10-04 15:09:00 Test Item Value Reference Range Interpretation Comments ALT (test code = ALT) 21 See_Comment [Auto mated message] The system which ge nerated this result transmit stuart reference range : <=65. The reference range was not used to interpr et this result as cherry l/abnormal. [facility]2017-10-04 15:09:00 Test Item Value Reference Range Interpretation Comments AST (test code = AST) 19 See_Comment [Auto mated message] The system which ge nerated this result transmit stuart reference range : <=37. The reference range was not used to interpr et this result as cherry l/abnormal. [facility]2017-10-04 15:09:00 Test Item Value Reference Range Interpretation Comments Creatinine Lvl (test code = Creatinine 0.91 0.50-1.40 Lvl) [facility]2017-10-04 15:09:00 Test Item Value Reference Range Interpretation Comments Sodium Lvl (test code = Sodium Lvl) 135 135-145 [facility]2017-10-04 15:09:00 Test Item Value Reference Range Interpretation Comments BUN (test code = BUN) 14 7-22 [facility]2017-10-04 15:09:00 Test Item Value Reference Range Interpretation Comments Chloride Lvl (test code = Chloride Lvl) 93 95-109 [facility]2017-10-04 15:09:00 Test Item Value Reference Range Interpretation Comments Potassium Lvl (test code = Potassium 3.8 3.5-5.1 Lvl) [facility]2017-10-04 15:09:00 Test Item Value Reference Range Interpretation Comments Glucose Lvl (test code = Glucose Lvl) 145 70-99 [facility]anoWrfqdpvMZSZNLQSDX2322-93-97 15:09:00 Test Item Value Reference Range Interpretation Comments Spherocyte (test code = Moderate Spherocyte) *ABN*(06/04/17 10:09 AM) [place] 110147-10-04 15:09:00 Test Item Value Reference Range Interpretation Comments RBC Morph (test code = Normal (06/04/17 10:09 RBC Morph) AM) [facility]XbabpvdENSWORTWOM4935-40-11 15:09:00 Test Item Value Reference Range Interpretation Comments Large Plt (test code Moderate *ABN*(06/04/17 = Large Plt) 10:09 AM) [facility]anoKghikurUBTWBUZKZY4585-27-05 15:09:00 Test Item Value Reference Range Interpretation Comments Toxic Gran (test code Moderate *ABN*(06/04/17 = Toxic Gran) 10:09 AM) [facility]anoTpismjyBOSNSYRURA9967-81-34 15:09:00 Test Item Value Reference Range Interpretation Comments Lymphocytes (test code = Lymphocytes) 8.0 20.0-40.0 [facility]anoDhnvdxuVLSBPERAJN4173-10-92 15:09:00 Test Item Value Reference Range Interpretation Comments Bands (test code = 4.0 See_Comment [Automat ed message] The Bands) system which ge nerated this result transmit stuart reference range : <=11.0. The reference r jose alfredo was not used to interpr et this result as cherry l/abnormal. [facility]anoKdriuglXUJVOHWZVQ5520-95-18 15:09:00 Test Item Value Reference Range Interpretation Comments Atypical Lymphs (test code = Atypical 0.0 Lymphs) [facility]anoWlrrvlkGKEENRSLSE9309-13-18 15:09:00 Test Item Value Reference Range Interpretation Comments Eosinophils (test code = 1.0 See_Comment [A utomated message] The Eosinophils) system which ge nerated this result tra nsmitted reference range : <=4.0. The reference r jose alfredo was not used to int erpret this result as normal/abnormal . [facility]anoTvqyogpOJOXTOOMFH8697-35-03 15:09:00 Test Item Value Reference Range Interpretation Comments Monocytes (test code = Monocytes) 7.0 2.0-12.0 [facility]anoRjzlrluXDUIZHPQKR1576-16-80 15:09:00 Test Item Value Reference Range Interpretation Comments Segs (test code = Segs) 80.0 45.0-75.0 [facility]anoFoaxiuuKRIKNZWJCS9202-93-58 15:09:00 Test Item Value Reference Range Interpretation Comments Eosinophils # (test code 0.1 See_Comment [A utomated message] The = Eosinophils #) system whic h generated this result tra nsmitted reference range : <=0.5. The reference r jose alfredo was not used to int erpret this result as normal/abnormal . [facility]anoDgrlgxzCXSQGUFOQP5693-41-84 15:09:00 Test Item Value Reference Range Interpretation Comments Segs-Bands # (test code = Segs-Bands #) 11.8 1.5-8.1 [facility]anoJvegjzkVZNQXNAHRB7130-51-79 15:09:00 Test Item Value Reference Range Interpretation Comments Monocytes # (test code 1.0 See_Comment [Aut omated message] The = Monocytes #) system which generated this result tra nsmitted reference range : <=0.8. The reference r jose alfredo was not used to int erpret this result as normal/abnormal . [facility]anoBqhciiwINXEYHFNOA5777-15-89 15:09:00 Test Item Value Reference Range Interpretation Comments Lymphocytes # (test code = Lymphocytes 1.1 1.0-5.5 #) [facility]anoUtlqwfsTHRLSSKECZ8289-15-89 15:09:00 Test Item Value Reference Range Interpretation Comments MCH (test code = MCH) 29.7 pg 27.0-31.0 [facility]anoThpxjjfHPGBSBAKNG5602-16-40 15:09:00 Test Item Value Reference Range Interpretation Comments Hct (test code = Hct) 32.8 42.0-54.0 [facility]anoKiauzeuIYWWGMNXDF0977-78-48 15:09:00 Test Item Value Reference Range Interpretation Comments Hgb (test code = Hgb) 11.0 14.0-18.0 [facility]anoIjplfvvEZXOIDMCAN2048-93-74 15:09:00 Test Item Value Reference Range Interpretation Comments RBC (test code = RBC) 3.68 4.70-6.10 [facility]anoSkooermTUMZTTORYP4700-83-45 15:09:00 Test Item Value Reference Range Interpretation Comments MCV (test code = MCV) 89.0 80.0-94.0 [facility]anoJzpkpmtUYKABGXTDS2564-63-26 15:09:00 Test Item Value Reference Range Interpretation Comments WBC (test code = WBC) 14.0 3.7-10.4 [facility]anoXgtphhjEJTAHDKQMN1924-86-13 15:09:00 Test Item Value Reference Range Interpretation Comments RDW (test code = RDW) 14.4 11.5-14.5 [facility]anoTrbflxwXNPSCRFVCQ1070-62-95 15:09:00 Test Item Value Reference Range Interpretation Comments Platelet (test code = Platelet) 336 133-450 [facility]anoWzbeptcBDIHIHBAHU5885-22-62 15:09:00 Test Item Value Reference Range Interpretation Comments MPV (test code = MPV) 8.5 7.4-10.4 [facility]anoNgoaltjHLQQXERNKV8955-97-76 15:09:00 Test Item Value Reference Range Interpretation Comments MCHC (test code = MCHC) 33.4 32.0-36.0 [facility]anoJownozqTUKEZAQBUZ0965-70-20 20:40:00 Test Item Value Reference Range Interpretation Comments Basophils (test code = 0.4 See_Comment [Aut omated message] The Basophils) system which ge nerated this result tra nsmitted reference range : <=1.0. The reference r jose alfredo was not used to int erpret this result as normal/abnormal . [facility]anoOjoyuaxDVMAHXFIUO8181-20-26 20:40:00 Test Item Value Reference Range Interpretation Comments RBC Morph (test code = Normal (06/03/17 3:40 RBC Morph) PM) [facility]anoKbswjkaWIIXHWZJSJ8844-20-26 20:40:00 Test Item Value Reference Range Interpretation Comments Plt Morph (test code = Normal (06/03/17 3:40 Plt Morph) PM) [facility]anoRuleutjJGDUVMWOUX7083-29-08 20:40:00 Test Item Value Reference Range Interpretation Comments Basophils # (test code 0.1 See_Comment [Aut omated message] The = Basophils #) system which generated this result tra nsmitted reference range : <=0.2. The reference r jose alfredo was not used to int erpret this result as normal/abnormal . [facility]anoUrbfmayXSZCXMIVYS2935-17-53 09:41:00 Test Item Value Reference Range Interpretation Comments Metamyelocytes (test code 2.0 See_Comment [ Automated message] = Metamyelocytes) The system which generated this result transmitted ref erence range: <=1.0. T he reference range was not used to int erpret this result as normal/abnormal . [facility]anoHpnfkzxOPKNEZDVHF1955-79-64 09:41:00 Test Item Value Reference Range Interpretation Comments Atypical Lymphs (test code = Atypical 0.0 Lymphs) [facility]anoBvvoctjWFSEESMLWT1501-04-54 09:41:00 Test Item Value Reference Range Interpretation Comments Bands (test code = 10.0 See_Comment [Automat ed message] The Bands) system which ge nerated this result transmit stuart reference range : <=11.0. The reference r jose alfredo was not used to interpr et this result as cherry l/abnormal. [facility]XjitprwCSIWMWKMNJ0158-45-25 09:41:00 Test Item Value Reference Range Interpretation Comments Plt Morph (test code = Normal (05/31/17 4:41 Plt Morph) AM) [facility]XvyrcinTDYMOPFQFT0303-88-01 09:41:00 Test Item Value Reference Range Interpretation Comments RBC Morph (test code = Normal (05/31/17 4:41 RBC Morph) AM) [facility]anoIcifgwzTSBGVDTUCL6225-73-38 09:41:00 Test Item Value Reference Range Interpretation Comments Toxic Gran (test code Moderate *ABN*(05/31/17 = Toxic Gran) 4:41 AM) [facility]anoJsglkhfSDZYDFTDPN5909-38-96 09:41:00 Test Item Value Reference Range Interpretation Comments Tot Cell Ct (test code = Tot Cell Ct) [address] [facility]2017-09-28 09:27:00 Test Item Value Reference Range Interpretation Comments B/C Ratio (test code = B/C Ratio) 38 6-25 [facility]2017-09-28 09:27:00 Test Item Value Reference Range Interpretation Comments A/G Ratio (test code = A/G Ratio) 0.4 0.7-1.6 [facility]2017-09-28 09:27:00 Test Item Value Reference Range Interpretation Comments Globulin (test code = Globulin) 3.5 2.7-4.2 [facility]2017-09-28 09:27:00 Test Item Value Reference Range Interpretation Comments ALT (test code = ALT) 16 See_Comment [Auto mated message] The system which ge nerated this result transmit stuart reference range : <=65. The reference range was not used to interpr et this result as cherry l/abnormal. [facility]2017-09-28 09:27:00 Test Item Value Reference Range Interpretation Comments Total Protein (test code = Total 5.0 6.4-8.4 Protein) [facility]2017-09-28 09:27:00 Test Item Value Reference Range Interpretation Comments Albumin Lvl (test code = Albumin Lvl) 1.5 3.5-5.0 [facility] [id number] 09:27:00 Test Item Value Reference Range Interpretation Comments AST (test code = AST) 18 See_Comment [Auto mated message] The system which ge nerated this result transmit stuart reference range : <=37. The reference range was not used to interpr et this result as cherry l/abnormal. [facility] [id number] 09:27:00 Test Item Value Reference Range Interpretation Comments Bili Total (test code = Bili Total) 0.4 0.2-1.3 [facility] [id number] 09:27:00 Test Item Value Reference Range Interpretation Comments Alk Phos (test code = Alk Phos) 39 39-136 [facility]GS[facility]19[facility] 07:37:00 Test Item Value Reference Range Interpretation Comments Plt Morph (test code = Normal (05/28/17 2:37 Plt Morph) AM) [facility] AND [id number] 02:42:00 Test Item Value Reference Range Interpretation Comments UA Mucus (test code = UA Mucus) Few /LPF [facility] AND [id number] 02:42:00 Test Item Value Reference Range Interpretation Comments UA Bacteria (test code = UA Occasional /HPF Bacteria) [facility] AND [id number] 02:42:00 Test Item Value Reference Range Interpretation Comments UA Amorph Sydni (test code = UA Moderate /HPF Amorph Sydni) [facility] AND [id number] 02:42:00 Test Item Value Reference Range Interpretation Comments UA Sq Epi (test code = UA Sq Occasional /LPF Epi) [facility] AND [id number] 02:42:00 Test Item Value Reference Range Interpretation Comments UA RBC (test code = 6-10 /HPF See_Comment [Automa stuart message] The UA RBC) system which ge nerated this result tra nsmitted reference range : <=2. The reference range was not used to interpr et this result as normal/abnormal . [facility] AND [id number] 02:42:00 Test Item Value Reference Range Interpretation Comments UA WBC (test code = 0-2 /HPF See_Comment [Automa stuart message] The UA WBC) system which ge nerated this result tra nsmitted reference range : <=5. The reference range was not used to interpr et this result as cherry l/abnormal. [facility] AND [id number] 02:42:00 Test Item Value Reference Range Interpretation Comments UA Leuk Est (test Negative (05/24/17 9:42 code = UA Leuk Est) PM) [facility] AND [id number] 02:42:00 Test Item Value Reference Range Interpretation Comments Micro? (test code = Performed (05/24/17 9:42 Micro?) PM) [facility] AND [id number] 02:42:00 Test Item Value Reference Range Interpretation Comments UA Urobilinogen (test code = UA 1.0 0.1-1.0 Urobilinogen) [facility] AND [id number] 02:42:00 Test Item Value Reference Range Interpretation Comments UA Nitrite (test code Negative (05/24/17 9:42 = UA Nitrite) PM) [facility] AND [id number] 02:42:00 Test Item Value Reference Range Interpretation Comments UA Protein (test code = UA Protein) 30 mg/dL [facility] AND [id number] 02:42:00 Test Item Value Reference Range Interpretation Comments UA Bili (test code = Small *ABN*(05/24/17 UA Bili) 9:42 PM) [facility] AND [id number] 02:42:00 Test Item Value Reference Range Interpretation Comments UA Blood (test code = Moderate *ABN*(05/24/17 UA Blood) 9:42 PM) [facility] AND [id number] 02:42:00 Test Item Value Reference Range Interpretation Comments UA Glucose (test code Negative (05/24/17 9:42 = UA Glucose) PM) [facility] AND [id number] 02:42:00 Test Item Value Reference Range Interpretation Comments UA Ketones (test code = Trace *ABN*(05/24/17 UA Ketones) 9:42 PM) [facility] AND [id number] 02:42:00 Test Item Value Reference Range Interpretation Comments UA Spec Grav (test >=1.030 *ABN*(05/24/17 code = UA Spec Grav) 9:42 PM) [facility] AND [id number] 02:42:00 Test Item Value Reference Range Interpretation Comments UA pH (test code = UA pH) 5.0 1 5.0-8.0 [facility] AND [id number] 02:42:00 Test Item Value Reference Range Interpretation Comments UA Color (test code = Yellow *NA*(05/24/17 UA Color) 9:42 PM) [facility] AND [id number] 02:42:00 Test Item Value Reference Range Interpretation Comments UA Turbidity (test code Cloudy *ABN*(05/24/17 = UA Turbidity) 9:42 PM) [facility] [id number] 15:55:00 Test Item Value Reference Range Interpretation Comments Procalcitonin Lvl (test 14.55 See_Comment [Au tomated message] code = Procalcitonin Lvl) Th e system which generated this result transmitted ref erence range: <=0.10. The reference range was not used to interpr et this result as normal/abnormal . [facility] [id number] 15:55:00 Test Item Value Reference Range Interpretation Comments Lactic Acid Lvl (test code = Lactic 1.2 0.5-2.2 Acid Lvl) [facility] AND [id number] 12:31:00 Test Item Value Reference Range Interpretation Comments UA Ketones (test code = UA Negative mg/dL Ketones) [facility] AND [id number] 12:31:00 Test Item Value Reference Range Interpretation Comments UA Bili (test code = Negative *NA*(05/23/17 UA Bili) 7:31 AM) [facility] AND [id number] 12:31:00 Test Item Value Reference Range Interpretation Comments UA Blood (test code = Negative (05/23/17 7:31 UA Blood) AM) [facility] AND [id number] 12:31:00 Test Item Value Reference Range Interpretation Comments UA Nitrite (test code Negative (05/23/17 7:31 = UA Nitrite) AM) [facility] AND [id number] 12:31:00 Test Item Value Reference Range Interpretation Comments UA Urobilinogen (test code = UA 2.0 0.1-1.0 Urobilinogen) [facility] AND [id number] 12:31:00 Test Item Value Reference Range Interpretation Comments UA Leuk Est (test Negative (05/23/17 7:31 code = UA Leuk Est) AM) [facility] AND [id number] 12:31:00 Test Item Value Reference Range Interpretation Comments UA WBC (test code = 1 See_Comment [Automa stuart message] The UA WBC) system which ge nerated this result transmit stuart reference range : <=5. The reference range was not used to interpr et this result as cherry l/abnormal. [facility] AND [id number] 12:31:00 Test Item Value Reference Range Interpretation Comments UA Sq Epi (test code = UA Sq Occasional /LPF Epi) [facility] AND [id number] 12:31:00 Test Item Value Reference Range Interpretation Comments UA Mucus (test code = UA Mucus) Few /LPF [facility] AND [id number] 12:31:00 Test Item Value Reference Range Interpretation Comments UA RBC (test code = 2 See_Comment [Automa stuart message] The UA RBC) system which ge nerated this result transmit stuart reference range : <=2. The reference range was not used to interpr et this result as cherry l/abnormal. [facility] AND [id number] 12:31:00 Test Item Value Reference Range Interpretation Comments UA Glucose (test code = UA Glucose) 150 mg/dL [facility] AND [id number] 12:31:00 Test Item Value Reference Range Interpretation Comments UA Protein (test code = UA Protein) 100 mg/dL [facility] AND [id number] 12:31:00 Test Item Value Reference Range Interpretation Comments UA Spec Grav (test code = UA Spec Grav) 1.020 [facility] AND [id number] 12:31:00 Test Item Value Reference Range Interpretation Comments UA pH (test code = UA pH) 5.0 5.0-8.0 [facility] AND [id number] 12:31:00 Test Item Value Reference Range Interpretation Comments UA Color (test code = Yellow *NA*(05/23/17 UA Color) 7:31 AM) [facility] [id number] 12:31:00 Test Item Value Reference Range Interpretation Comments UA Turbidity (test code = Clear (05/23/17 7:31 UA Turbidity) AM) [facility] [id number] 11:12:00 Test Item Value Reference Range Interpretation Comments BNP (test code = BNP) 76 [facility] [id number] 11:12:00 Test Item Value Reference Range Interpretation Comments Magnesium Lvl (test code = Magnesium 1.6 1.8-2.4 Lvl) [facility] [id number] 11:12:00 Test Item Value Reference Range Interpretation Comments Lipase Lvl (test code = Lipase Lvl) 151 73-393 [facility] [id number] 11:12:00 Test Item Value Reference Range Interpretation Comments Hgb A1C (test code = Hgb A1C) 6.5 [facility] [id number] 11:04:00 Test Item Value Reference Range Interpretation Comments UA Sq Epi (test code = UA Sq Occasional /LPF Epi) [facility] [id number] 11:04:00 Test Item Value Reference Range Interpretation Comments UA WBC (test code = UA None Seen (07/28/16 WBC) 5:04 AM) [facility] [id number] 11:04:00 Test Item Value Reference Range Interpretation Comments UA RBC (test None Seen See_Comment [Automated mes moises] code = UA RBC) (07/28/16 5:04 The system which AM) generated this result transmitted ref erence range: <=2. The reference range was not used to int erpret this result as normal/abnormal . [facility] [id number] 11:04:00 Test Item Value Reference Range Interpretation Comments UA Bacteria (test code = UA Occasional /HPF Bacteria) [facility] [id number] 11:04:00 Test Item Value Reference Range Interpretation Comments UA Nitrite (test code Negative (07/28/16 5:04 = UA Nitrite) AM) [facility] [id number] 11:04:00 Test Item Value Reference Range Interpretation Comments UA Leuk Est (test Negative (07/28/16 5:04 code = UA Leuk Est) AM) [facility] [id number] 11:04:00 Test Item Value Reference Range Interpretation Comments UA Turbidity (test code = Clear (07/28/16 5:04 UA Turbidity) AM) [facility] [id number] 11:04:00 Test Item Value Reference Range Interpretation Comments UA Color (test code = UA Color) [facility] [id number] 11:04:00 Test Item Value Reference Range Interpretation Comments UA Ketones (test code Negative *NA*(07/28/16 = UA Ketones) 5:04 AM) [facility] [id number] 11:04:00 Test Item Value Reference Range Interpretation Comments UA Bili (test code = Negative *NA*(07/28/16 UA Bili) 5:04 AM) [facility] [id number] 11:04:00 Test Item Value Reference Range Interpretation Comments UA Spec Grav (test code = UA Spec 1.010 1 Grav) [facility] [id number] 11:04:00 Test Item Value Reference Range Interpretation Comments UA Urobilinogen (test code = UA 0.2 0.1-1.0 Urobilinogen) [facility] [id number] 11:04:00 Test Item Value Reference Range Interpretation Comments UA Blood (test code = Negative (07/28/16 5:04 UA Blood) AM) [facility] [id number] 11:04:00 Test Item Value Reference Range Interpretation Comments UA pH (test code = UA pH) 7.0 1 5.0-8.0 [facility] [id number] 11:04:00 Test Item Value Reference Range Interpretation Comments UA Glucose (test code = UA Glucose) 100 mg/dL [facility] [id number] 11:04:00 Test Item Value Reference Range Interpretation Comments UA Protein (test code Negative (07/28/16 5:04 = UA Protein) AM) [facility] LxeamqxXTLUHU4123-03-71 11:00:50 Test Item Value Reference Range Interpretation Comments CHD Risk (test code = CHD Risk) 2.35 4.00-7.30 [facility] EicmngyECMZSC9964-07-96 11:00:50 Test Item Value Reference Range Interpretation Comments VLDL (test code = VLDL) 27 [facility] UaxwdcpVTZLTE7602-79-81 11:00:50 Test Item Value Reference Range Interpretation Comments LDL (Calculated) (test code = LDL 46 (Calculated)) [facility]qJFBJLT4222[facility] 11:00:50 Test Item Value Reference Range Interpretation Comments Chol (test code = Chol) 127 [facility] BrookWcutsqnWYVTVB1980-43-80 11:00:50 Test Item Value Reference Range Interpretation Comments HDL (test code = HDL) 54 [facility] BrookHoxeozzMRLGUY5219-26-48 11:00:50 Test Item Value Reference Range Interpretation Comments Trig (test code = Trig) 135 [facility] GCLIWTWYZ8387-75-41 11:00:50 Test Item Value Reference Range Interpretation Comments Hgb A1C (test code = Hgb A1C) 6.1 [facility] [id number] 04:12:00 Test Item Value Reference Range Interpretation Comments CK MB Index (test no gt See_Comment [Automate d message] The code = CK MB Index) system w [facility] generated this result transmit stuart reference range : <=2.5. The reference range was not used to interpr et this result as cherry l/abnormal. [facility]annC[facility] [id number] 04:12:00 Test Item Value Reference Range Interpretation Comments Troponin-I (test code no gt See_Comment [Auto mated message] The = Troponin-I) system which g enerated this result transmit stuart reference range : <=0.40. The reference r jose alfredo was not used to interpr et this result as cherry l/abnormal. [facility] [id number] 04:12:00 Test Item Value Reference Range Interpretation Comments CK MB (test code = CK MB) no gt 0.5-3.6 [facility] [id number] 04:12:00 Test Item Value Reference Range Interpretation Comments Total CK (test code = Total CK) 49 12-191 [facility] DSBIAVB4803-69-49 04:12:00 Test Item Value Reference Range Interpretation Comments BNP (test code = BNP) 32 [facility]annCHE[facility] [id number] 04:12:00 Test Item Value Reference Range Interpretation Comments Globulin (test code = Globulin) 3.3 2.7-4.2 [place] 279506-11-27 04:12:00 Test Item Value Reference Range Interpretation Comments A/G Ratio (test code = A/G Ratio) 1.0 0.7-1.6 [place] 279506-11-27 04:12:00 Test Item Value Reference Range Interpretation Comments eGFR (test code = eGFR) 53 [place] 279506-11-27 04:12:00 Test Item Value Reference Range Interpretation Comments AST (test code = AST) 11 See_Comment [Auto mated message] The system which ge nerated this result transmit stuart reference range : <=37. The reference range was not used to interpr et this result as cherry l/abnormal. [place] 279506-11-27 04:12:00 Test Item Value Reference Range Interpretation Comments Alk Phos (test code = Alk Phos) 38 39-136 [place] 279506-11-27 04:12:00 Test Item Value Reference Range Interpretation Comments Bili Total (test code = Bili Total) 0.2 0.2-1.3 [place] 279506-11-27 04:12:00 Test Item Value Reference Range Interpretation Comments AGAP (test code = AGAP) 10.0 10.0-20.0 [place] 279506-11-27 04:12:00 Test Item Value Reference Range Interpretation Comments B/C Ratio (test code = B/C Ratio) 21 6-25 [place] 279506-11-27 04:12:00 Test Item Value Reference Range Interpretation Comments ALT (test code = ALT) 16 See_Comment [Auto mated message] The system which ge nerated this result transmit stuart reference range : <=65. The reference range was not used to interpr et this result as cherry l/abnormal. [place] 279506-11-27 04:12:00 Test Item Value Reference Range Interpretation Comments Albumin Lvl (test code = Albumin Lvl) 3.3 3.5-5.0 [place] 279506-11-27 04:12:00 Test Item Value Reference Range Interpretation Comments Calcium Lvl (test code = Calcium Lvl) 8.3 8.5-10.5 [place] 279506-11-27 04:12:00 Test Item Value Reference Range Interpretation Comments CO2 (test code = CO2) 34 24-32 [facility]2016-11-27 04:12:00 Test Item Value Reference Range Interpretation Comments Total Protein (test code = Total 6.6 6.4-8.4 Protein) [place] 279506-11-27 04:12:00 Test Item Value Reference Range Interpretation Comments Glucose Lvl (test code = Glucose Lvl) 161 70-99 [place] 279506-11-27 04:12:00 Test Item Value Reference Range Interpretation Comments Potassium Lvl (test code = Potassium 4.0 3.5-5.1 Lvl) [place] 279506-11-27 04:12:00 Test Item Value Reference Range Interpretation Comments Chloride Lvl (test code = Chloride Lvl) 99 95-109 [place] 279506-11-27 04:12:00 Test Item Value Reference Range Interpretation Comments Creatinine Lvl (test code = Creatinine 1.34 0.50-1.40 Lvl) [place] 279506-11-27 04:12:00 Test Item Value Reference Range Interpretation Comments BUN (test code = BUN) 28 7-22 [facility]2016-11-27 04:12:00 Test Item Value Reference Range Interpretation Comments Sodium Lvl (test code = Sodium Lvl) 139 135-145 [facility]RnoowdzSKKMYXKLHQ9144-10-64 04:12:00 Test Item Value Reference Range Interpretation Comments Basophils # (test code 0.1 See_Comment [Aut omated message] The = Basophils #) system which generated this result tra nsmitted reference range : <=0.2. The reference r jose alfredo was not used to int erpret this result as normal/abnormal . [facility]anoMvgmwjtCNYNVCBDNG8603-84-04 04:12:00 Test Item Value Reference Range Interpretation Comments Segs-Bands # (test code = Segs-Bands #) 5.2 1.5-8.1 [facility]anoCfipufaVRNKKKBWDE9053-42-40 04:12:00 Test Item Value Reference Range Interpretation Comments Lymphocytes (test code = Lymphocytes) 22.2 20.0-40.0 [place] 110146-11-27 04:12:00 Test Item Value Reference Range Interpretation Comments Monocytes (test code = Monocytes) 13.7 2.0-12.0 [facility]anoRdbukaoUSNIWEQZPA4735-83-12 04:12:00 Test Item Value Reference Range Interpretation Comments Eosinophils # (test code 0.2 See_Comment [A utomated message] The = Eosinophils #) system whic h generated this result tra nsmitted reference range : <=0.5. The reference r jose alfredo was not used to int erpret this result as normal/abnormal . [facility]anoAvecyazSXORXBKNSD1219-01-71 04:12:00 Test Item Value Reference Range Interpretation Comments Lymphocytes # (test code = Lymphocytes 1.9 1.0-5.5 #) [facility]anoClblqulZTPMYISYWN0362-46-80 04:12:00 Test Item Value Reference Range Interpretation Comments Monocytes # (test code 1.2 See_Comment [Aut omated message] The = Monocytes #) system which generated this result tra nsmitted reference range : <=0.8. The reference r jose alfredo was not used to int erpret this result as normal/abnormal . [facility]anoSrjmgfgCLRDDGRIPV4291-60-80 04:12:00 Test Item Value Reference Range Interpretation Comments Segs (test code = Segs) 60.8 45.0-75.0 [facility]anoPbrmcorIHSCIVMQGE4427-53-10 04:12:00 Test Item Value Reference Range Interpretation Comments Eosinophils (test code = 2.7 See_Comment [A utomated message] The Eosinophils) system which ge nerated this result tra nsmitted reference range : <=4.0. The reference r jose alfredo was not used to int erpret this result as normal/abnormal . [facility]anoTmifubjNWABFNVTAA5218-11-64 04:12:00 Test Item Value Reference Range Interpretation Comments Basophils (test code = 0.6 See_Comment [Aut omated message] The Basophils) system which ge nerated this result tra nsmitted reference range : <=1.0. The reference r jose alfredo was not used to int erpret this result as normal/abnormal . [facility]anoFwdkjtdMHFVWVYJZI9407-74-80 04:12:00 Test Item Value Reference Range Interpretation Comments PTT (test code = PTT) 26.5 s 22.9-35.8 [facility]anoZizzeowGPZUAVACWD3387-21-82 04:12:00 Test Item Value Reference Range Interpretation Comments PT (test code = PT) 13.6 s 12.0-14.7 [facility]anoFddvxthLGPGDMKFIO2266-90-18 04:12:00 Test Item Value Reference Range Interpretation Comments INR (test code = INR) 1.02 0.85-1.17 [facility]anoSwniiypNVBHIXUDEA4629-13-13 04:12:00 Test Item Value Reference Range Interpretation Comments Platelet (test code = Platelet) 181 133-450 [facility]anoXbzclelREFQGTOPDW9525-33-12 04:12:00 Test Item Value Reference Range Interpretation Comments MPV (test code = MPV) 10.9 7.4-10.4 [facility]anoXasvoqdZXPMJDRVQA4756-68-74 04:12:00 Test Item Value Reference Range Interpretation Comments MCH (test code = MCH) 29.9 pg 27.0-31.0 [facility]anoJtjhacpOIBKORVDKH2638-84-80 04:12:00 Test Item Value Reference Range Interpretation Comments MCHC (test code = MCHC) 33.2 32.0-36.0 [facility]anoWetlarbIZYXIWWTYJ2568-05-73 04:12:00 Test Item Value Reference Range Interpretation Comments MCV (test code = MCV) 90.2 80.0-94.0 [facility]anoTxulsiiMPKKLKYJTH2046-09-01 04:12:00 Test Item Value Reference Range Interpretation Comments RDW (test code = RDW) 13.3 11.5-14.5 [facility]anoAmxwcmmIOCMVFAEZJ1395-68-89 04:12:00 Test Item Value Reference Range Interpretation Comments Hgb (test code = Hgb) 13.4 14.0-18.0 [facility]anoSbbswnyVNUKSUBHML9794-81-69 04:12:00 Test Item Value Reference Range Interpretation Comments Hct (test code = Hct) 40.3 42.0-54.0 [facility]anoVfeekgcOOLLUCSXLX8803-20-91 04:12:00 Test Item Value Reference Range Interpretation Comments WBC (test code = WBC) 8.5 3.7-10.4 [facility]anoJkzvsfqVEIRQQQAZI5007-38-34 04:12:00 Test Item Value Reference Range Interpretation Comments RBC (test code = RBC) 4.47 4.70-6.10 [facility] [id number] 04:12:00 Test Item Value Reference Range Interpretation Comments UA Bacteria (test code = None Seen (07/27/16 UA Bacteria) 10:12 PM) [facility] [id number] 04:12:00 Test Item Value Reference Range Interpretation Comments UA WBC (test code = UA None Seen (07/27/16 WBC) 10:12 PM) [facility] AND [id number] 04:12:00 Test Item Value Reference Range Interpretation Comments UA RBC (test None Seen See_Comment [Automated mes moises] code = UA RBC) (07/27/16 10:12 The system which PM) generated this result transmitted ref erence range: <=2. The reference range was not used to int erpret this result as normal/abnormal . [facility] [id number] 04:12:00 Test Item Value Reference Range Interpretation Comments UA Sq Epi (test code = UA Sq Epi) Rare /LPF [facility] [id number] 04:12:00 Test Item Value Reference Range Interpretation Comments UA Nitrite (test code Negative (07/27/16 = UA Nitrite) 10:12 PM) [facility] AND [id number] 04:12:00 Test Item Value Reference Range Interpretation Comments UA Leuk Est (test Negative (07/27/16 10:12 code = UA Leuk Est) PM) [facility] AND [id number] 04:12:00 Test Item Value Reference Range Interpretation Comments UA Ketones (test code = UA Negative mg/dL Ketones) [facility] [id number] 04:12:00 Test Item Value Reference Range Interpretation Comments UA Bili (test code = Negative *NA*(07/27/16 UA Bili) 10:12 PM) [facility] [id number] 04:12:00 Test Item Value Reference Range Interpretation Comments UA Blood (test code = Negative (07/27/16 10:12 UA Blood) PM) [facility] AND [id number] 04:12:00 Test Item Value Reference Range Interpretation Comments UA Urobilinogen (test code = UA 0.2 0.1-1.0 Urobilinogen) [facility] AND [id number] 04:12:00 Test Item Value Reference Range Interpretation Comments UA Spec Grav (test code = UA Spec 1.010 1 Grav) [facility] [id number] 04:12:00 Test Item Value Reference Range Interpretation Comments UA Color (test code = Yellow *NA*(07/27/16 UA Color) 10:12 PM) [facility] AND [id number] 04:12:00 Test Item Value Reference Range Interpretation Comments UA Turbidity (test code = Clear (07/27/16 UA Turbidity) 10:12 PM) [facility] AND [id number] 04:12:00 Test Item Value Reference Range Interpretation Comments UA pH (test code = UA pH) 7.5 1 5.0-8.0 [facility] AND [id number] 04:12:00 Test Item Value Reference Range Interpretation Comments UA Protein (test code = UA Negative mg/dL Protein) [facility] AND [id number] 04:12:00 Test Item Value Reference Range Interpretation Comments UA Glucose (test code = UA Negative mg/dL Glucose) [facility] AND [id number] 16:03:00 Test Item Value Reference Range Interpretation Comments UA Leuk Est (test Negative (05/30/16 11:03 code = UA Leuk Est) AM) [facility] AND [id number] 16:03:00 Test Item Value Reference Range Interpretation Comments UA Turbidity (test code = Clear (05/30/16 11:03 UA Turbidity) AM) [facility] AND [id number] 16:03:00 Test Item Value Reference Range Interpretation Comments UA Nitrite (test code Negative (05/30/16 11:03 = UA Nitrite) AM) [facility] AND [id number] 16:03:00 Test Item Value Reference Range Interpretation Comments UA Urobilinogen (test code = UA 0.2 0.1-1.0 Urobilinogen) [facility] AND [id number] 16:03:00 Test Item Value Reference Range Interpretation Comments UA Spec Grav (test code = UA Spec 1.015 1 Grav) [facility] AND [id number] 16:03:00 Test Item Value Reference Range Interpretation Comments UA pH (test code = UA pH) 6.0 1 5.0-8.0 [facility] AND [id number] 16:03:00 Test Item Value Reference Range Interpretation Comments UA Protein (test code Negative (05/30/16 11:03 = UA Protein) AM) [facility] AND [id number] 16:03:00 Test Item Value Reference Range Interpretation Comments UA Color (test code = Yellow *NA*(05/30/16 UA Color) 11:03 AM) [facility] AND [id number] 16:03:00 Test Item Value Reference Range Interpretation Comments UA Ketones (test code Negative *NA*(05/30/16 = UA Ketones) 11:03 AM) [facility] AND [id number] 16:03:00 Test Item Value Reference Range Interpretation Comments UA Glucose (test code Negative (05/30/16 11:03 = UA Glucose) AM) [facility] AND [id number] 16:03:00 Test Item Value Reference Range Interpretation Comments UA Blood (test code = Moderate *ABN*(05/30/16 UA Blood) 11:03 AM) [facility] AND [id number] 16:03:00 Test Item Value Reference Range Interpretation Comments UA Bili (test code = Negative *NA*(05/30/16 UA Bili) 11:03 AM) [facility] AND [id number] 16:03:00 Test Item Value Reference Range Interpretation Comments UA Sq Epi (test code = UA Sq Epi) Rare /LPF [facility] AND [id number] 16:03:00 Test Item Value Reference Range Interpretation Comments Micro? (test code = Performed (05/30/16 11:03 Micro?) AM) [facility] AND [id number] 16:03:00 Test Item Value Reference Range Interpretation Comments UA WBC (test code = UA None Seen (05/30/16 WBC) 11:03 AM) [facility] AND [id number] 16:03:00 Test Item Value Reference Range Interpretation Comments UA RBC (test None Seen See_Comment [Automated mes moises] code = UA RBC) (05/30/16 11:03 The system which AM) generated this result transmitted ref erence range: <=2. The reference range was not used to int erpret this result as normal/abnormal . [facility] AND [id number] 16:03:00 Test Item Value Reference Range Interpretation Comments UA Bacteria (test code = None Seen (05/30/16 UA Bacteria) 11:03 AM) [facility] ThryveCARAmarantus BioSciencesAC [id number] 15:14:00 Test Item Value Reference Range Interpretation Comments Troponin-I (test code no gt See_Comment [Auto mated message] The = Troponin-I) system which g enerated this result transmit stuart reference range : <=0.40. The reference r jose alfredo was not used to interpr et this result as cherry l/abnormal. [facility] ThryveCARAmarantus BioSciencesAC [id number] 15:14:00 Test Item Value Reference Range Interpretation Comments BNP (test code = BNP) 32 [facility] ThryveCARAmarantus BioSciencesAC [id number] 15:14:00 Test Item Value Reference Range Interpretation Comments Total CK (test code = Total CK) 64 12-191 [facility] ThryveCHEM [id number] 15:14:00 Test Item Value Reference Range Interpretation Comments Lipase Lvl (test code = Lipase Lvl) 201 73-393 [facility] MyoaptxNQSLBJXNBYNN8383-97-64 15:14:00 Test Item Value Reference Range Interpretation Comments AGAP (test code = AGAP) 9.2 10.0-20.0 [facility] KqyjaplYYBMHDLSWKJY3626-24-67 15:14:00 Test Item Value Reference Range Interpretation Comments B/C Ratio (test code = B/C Ratio) 20 6-25 [facility] TwpvcrmLZYAIPHDJZNR8305-64-32 15:14:00 Test Item Value Reference Range Interpretation Comments Globulin (test code = Globulin) 3.8 2.7-4.2 [facility] SlygchbRHFJZSSNHEPS3723-07-78 15:14:00 Test Item Value Reference Range Interpretation Comments A/G Ratio (test code = A/G Ratio) 0.9 0.7-1.6 [facility] YgsupsyMTQYGPZKJNJQ8803-50-98 15:14:00 Test Item Value Reference Range Interpretation Comments eGFR (test code = eGFR) 49 [facility] EqvelquDIVMCUYHKRZM7677-16-09 15:14:00 Test Item Value Reference Range Interpretation Comments Albumin Lvl (test code = Albumin Lvl) 3.6 3.5-5.0 [facility] CsfhfplFJQYZIKIQQTQ8121-10-38 15:14:00 Test Item Value Reference Range Interpretation Comments ALT (test code = ALT) 20 See_Comment [Auto mated message] The system which ge nerated this result transmit stuart reference range : <=65. The reference range was not used to interpr et this result as cherry l/abnormal. [facility]SAOJSISUAH4880-95-[facility] 15:14:00 Test Item Value Reference Range Interpretation Comments Alk Phos (test code = Alk Phos) 37 39-136 [facility] SystemVknhoqxJKEEEJXMMVKQ4809-40-58 15:14:00 Test Item Value Reference Range Interpretation Comments AST (test code = AST) 14 See_Comment [Auto mated message] The system which ge nerated this result transmit stuart reference range : <=37. The reference range was not used to interpr et this result as cherry l/abnormal. [facility] SystemKpuioprQQMAXZBSPTIK0712-44-77 15:14:00 Test Item Value Reference Range Interpretation Comments Bili Total (test code = Bili Total) 0.3 0.2-1.3 [facility] SystemLbtrokzNTFRSBCYZHKH8212-26-39 15:14:00 Test Item Value Reference Range Interpretation Comments Sodium Lvl (test code = Sodium Lvl) 143 135-145 [facility] SystemZraqlitRDVXCNHZTGJU6632-10-20 15:14:00 Test Item Value Reference Range Interpretation Comments Creatinine Lvl (test code = Creatinine 1.42 0.50-1.40 Lvl) [facility] SystemMnfrpvdTNIRBCGKMYJV4892-37-19 15:14:00 Test Item Value Reference Range Interpretation Comments Potassium Lvl (test code = Potassium 4.2 3.5-5.1 Lvl) [facility] SystemCwjasgrCTJCDQNZTKIE1477-25-40 15:14:00 Test Item Value Reference Range Interpretation Comments Chloride Lvl (test code = Chloride Lvl) 103 95-109 [facility] SystemEmadktpZXPQHNDNEWIU8439-75-76 15:14:00 Test Item Value Reference Range Interpretation Comments Calcium Lvl (test code = Calcium Lvl) 8.9 8.5-10.5 [facility] SystemYclmcmjKTAWDYCRMHIE2366-83-86 15:14:00 Test Item Value Reference Range Interpretation Comments CO2 (test code = CO2) 35 24-32 [facility] SystemBpgbjxvABODSJZITEZP4965-93-74 15:14:00 Test Item Value Reference Range Interpretation Comments Total Protein (test code = Total 7.4 6.4-8.4 Protein) [facility] SystemEtonwxuXTSTIGCYWEWX5498-23-97 15:14:00 Test Item Value Reference Range Interpretation Comments BUN (test code = BUN) 28 7-22 [facility]HyvlqtdBEWSWPBCQNXZ8358-30-16 15:14:00 Test Item Value Reference Range Interpretation Comments Glucose Lvl (test code = Glucose Lvl) 141 70-99 [facility]XcvcbrjGEUIAOQAII7363-39-04 15:14:00 Test Item Value Reference Range Interpretation Comments Basophils # (test code 0.1 See_Comment [Aut omated message] The = Basophils #) system which generated this result tra nsmitted reference range : <=0.2. The reference r jose alfredo was not used to int erpret this result as normal/abnormal . [facility]anoAsjtuqqCERTOJGDSV5001-65-13 15:14:00 Test Item Value Reference Range Interpretation Comments Lymphocytes # (test code = Lymphocytes 1.3 1.0-5.5 #) [facility]anoGgiehhjCAXVKFRZSH6465-39-17 15:14:00 Test Item Value Reference Range Interpretation Comments Monocytes # (test code 1.1 See_Comment [Aut omated message] The = Monocytes #) system which generated this result tra nsmitted reference range : <=0.8. The reference r jose alfredo was not used to int erpret this result as normal/abnormal . [facility]anoSezwictSBHDBEMXAK5324-09-87 15:14:00 Test Item Value Reference Range Interpretation Comments Eosinophils # (test code 0.1 See_Comment [A utomated message] The = Eosinophils #) system whic h generated this result tra nsmitted reference range : <=0.5. The reference r jose alfredo was not used to int erpret this result as normal/abnormal . [facility]anoGhsiszzXGGNQZNSJL3532-00-20 15:14:00 Test Item Value Reference Range Interpretation Comments Segs-Bands # (test code = Segs-Bands #) 4.4 1.5-8.1 [facility]anoIobstvdEXUJDCRYNQ0009-15-98 15:14:00 Test Item Value Reference Range Interpretation Comments Basophils (test code = 0.9 See_Comment [Aut omated message] The Basophils) system which ge nerated this result tra nsmitted reference range : <=1.0. The reference r jose alfredo was not used to int erpret this result as normal/abnormal . [facility]anoUumnqhnZXXYAZJEPI5307-02-30 15:14:00 Test Item Value Reference Range Interpretation Comments Monocytes (test code = Monocytes) 15.3 2.0-12.0 [facility]anoQixmgerGNGBROXBVN7203-90-70 15:14:00 Test Item Value Reference Range Interpretation Comments Eosinophils (test code = 2.1 See_Comment [A utomated message] The Eosinophils) system which ge nerated this result tra nsmitted reference range : <=4.0. The reference r jose alfredo was not used to int erpret this result as normal/abnormal . [facility]anoFmyzotxMRPKMUBIYH0827-07-81 15:14:00 Test Item Value Reference Range Interpretation Comments Lymphocytes (test code = Lymphocytes) 18.2 20.0-40.0 [facility]anoNlbudzxLDCTFODYSD1791-31-05 15:14:00 Test Item Value Reference Range Interpretation Comments Segs (test code = Segs) 63.5 45.0-75.0 [facility]anoNxnrtfdYLHQFXTSDB7709-57-88 15:14:00 Test Item Value Reference Range Interpretation Comments Hct (test code = Hct) 39.9 42.0-54.0 [facility]anoXaczwovBUODESDLIU6989-35-17 15:14:00 Test Item Value Reference Range Interpretation Comments MCH (test code = MCH) 30.6 pg 27.0-31.0 [facility]anoRcoivmqORQQTXGAKZ4068-24-95 15:14:00 Test Item Value Reference Range Interpretation Comments MCV (test code = MCV) 91.2 80.0-94.0 [facility]anoFwhvwohOCFJEHLTDU2157-55-92 15:14:00 Test Item Value Reference Range Interpretation Comments Hgb (test code = Hgb) 13.4 14.0-18.0 [facility]anoMxwttwsXZXQNKZNPV7385-12-07 15:14:00 Test Item Value Reference Range Interpretation Comments RBC (test code = RBC) 4.37 4.70-6.10 [facility]anoRarzvqoZGVNIMEXEO7189-00-06 15:14:00 Test Item Value Reference Range Interpretation Comments WBC (test code = WBC) 6.9 3.7-10.4 [facility]anoDdaluwiISRORKQVMP2949-60-54 15:14:00 Test Item Value Reference Range Interpretation Comments Platelet (test code = Platelet) 174 133-450 [facility]anoUhijwzrSBPYCFUMJE0248-10-90 15:14:00 Test Item Value Reference Range Interpretation Comments MPV (test code = MPV) 10.3 7.4-10.4 [facility]anoSkffzwxPYTUFXOSGA3402-54-43 15:14:00 Test Item Value Reference Range Interpretation Comments MCHC (test code = MCHC) 33.6 32.0-36.0 [facility]QfrdhipGESHJRZWCF3583-00-08 15:14:00 Test Item Value Reference Range Interpretation Comments RDW (test code = RDW) 13.8 11.5-14.5 [facility] SoutheastCHEM GBUFA7361-95-17 10:00:00 Test Item Value Reference Range Interpretation Comments Magnesium Lvl (test code = Magnesium 1.6 1.8-2.4 Lvl) [facility]qhaypEAOKMGJFZIHL6455-33-44 10:00:00 Test Item Value Reference Range Interpretation Comments AGAP (test code = AGAP) 8.5 10.0-20.0 [facility] SystemPnljhfxJTYITAUIMTFK2285-37-02 10:00:00 Test Item Value Reference Range Interpretation Comments eGFR (test code = eGFR) 86 [facility]QukdxemKRGVBVVZQFVC6705-79-17 10:00:00 Test Item Value Reference Range Interpretation Comments Sodium Lvl (test code = Sodium Lvl) 137 135-145 [facility] SystemJbmzxwkQIBEPYUHIUMO9339-88-46 10:00:00 Test Item Value Reference Range Interpretation Comments Potassium Lvl (test code = Potassium 3.5 3.5-5.1 Lvl) [facility] SystemYlqrvcoXGOZDVPBBBJV2394-03-72 10:00:00 Test Item Value Reference Range Interpretation Comments Calcium Lvl (test code = Calcium Lvl) 8.4 8.5-10.5 [facility] SystemAcjwdmrQALMRQFNUWBC0751-43-36 10:00:00 Test Item Value Reference Range Interpretation Comments CO2 (test code = CO2) 30 24-32 [facility] SystemYalgfkmFEEBYBIGSLOX0029-86-20 10:00:00 Test Item Value Reference Range Interpretation Comments Chloride Lvl (test code = Chloride Lvl) 102 95-109 [facility] SystemJaxxraxGZFDUKZASDOZ6807-77-33 10:00:00 Test Item Value Reference Range Interpretation Comments Creatinine Lvl (test code = Creatinine 0.9 0.5-1.4 Lvl) [facility] SystemNkxtqyfJZUEEMBSOAEC2714-25-26 10:00:00 Test Item Value Reference Range Interpretation Comments Glucose Lvl (test code = Glucose Lvl) 127 70-99 [facility] SystemVlbjsbpOGWQGWONLQHZ0627-01-30 10:00:00 Test Item Value Reference Range Interpretation Comments BUN (test code = BUN) 9 - [facility]anoHqsqbygWJPFCACFMH2766-92-63 10:00:00 Test Item Value Reference Range Interpretation Comments Basophils # (test code 0.1 See_Comment [Aut omated message] The = Basophils #) system which generated this result tra nsmitted reference range : <=0.2. The reference r jose alfredo was not used to int erpret this result as normal/abnormal . [facility]anoCiaewwdHILDRYAANM3752-01-00 10:00:00 Test Item Value Reference Range Interpretation Comments Eosinophils # (test code 0.1 See_Comment [A utomated message] The = Eosinophils #) system whic h generated this result tra nsmitted reference range : <=0.5. The reference r jose alfredo was not used to int erpret this result as normal/abnormal . [facility]anoLrqidsiPEMLOEEEEI1289-55-26 10:00:00 Test Item Value Reference Range Interpretation Comments Monocytes # (test code 0.9 See_Comment [Aut omated message] The = Monocytes #) system which generated this result tra nsmitted reference range : <=0.8. The reference r jose alfredo was not used to int erpret this result as normal/abnormal . [facility]anoXlvbmfbGCPCTGMHIJ0656-79-15 10:00:00 Test Item Value Reference Range Interpretation Comments Lymphocytes # (test code = Lymphocytes 2.0 1.0-5.5 #) [facility]anoYwbbvqfBNZCGOZCZE4585-25-54 10:00:00 Test Item Value Reference Range Interpretation Comments Segs (test code = Segs) 59.5 45.0-75.0 [facility]anoZsepqynBIOMFKULEF9080-26-22 10:00:00 Test Item Value Reference Range Interpretation Comments Lymphocytes (test code = Lymphocytes) 25.6 20.0-40.0 [facility]anoSgvishsIQMCFTIPWJ4574-24-15 10:00:00 Test Item Value Reference Range Interpretation Comments Basophils (test code = 1.6 See_Comment [Aut omated message] The Basophils) system which ge nerated this result tra nsmitted reference range : <=1.0. The reference r jose alfredo was not used to int erpret this result as normal/abnormal . [facility]anoKfiuzrrPORYLOJHVF8731-07-07 10:00:00 Test Item Value Reference Range Interpretation Comments Eosinophils (test code = 1.2 See_Comment [A utomated message] The Eosinophils) system which ge nerated this result tra nsmitted reference range : <=4.0. The reference r jose alfredo was not used to int erpret this result as normal/abnormal . [facility]anoPoctljcCXEVTYUUDT5979-38-63 10:00:00 Test Item Value Reference Range Interpretation Comments Segs-Bands # (test code = Segs-Bands #) 4.6 1.5-8.1 [facility]anoIywrnuwUCZVJXPVQH9154-32-38 10:00:00 Test Item Value Reference Range Interpretation Comments Monocytes (test code = Monocytes) 12.1 2.0-12.0 [facility]anoYocobeyWRJAUAHZRG0307-21-86 10:00:00 Test Item Value Reference Range Interpretation Comments MCH (test code = MCH) 30.5 pg 27.0-31.0 [facility]anoXmatpaoDRGOBTOBVF1134-45-15 10:00:00 Test Item Value Reference Range Interpretation Comments MCHC (test code = MCHC) 34.0 32.0-36.0 [facility]anoWdstvmrMSTTRNJKVW6780-60-20 10:00:00 Test Item Value Reference Range Interpretation Comments RDW (test code = RDW) 13.3 11.5-14.5 [facility]anoVlksnmuLETJBALYFH3814-63-09 10:00:00 Test Item Value Reference Range Interpretation Comments Hct (test code = Hct) 31.0 42.0-54.0 [facility]anoBvtlxhfRDPCNJCHLG1705-59-08 10:00:00 Test Item Value Reference Range Interpretation Comments MCV (test code = MCV) 89.6 80.0-94.0 [facility]anoEpfsnvuWGTUIUDUUF6055-04-66 10:00:00 Test Item Value Reference Range Interpretation Comments MPV (test code = MPV) 9.4 7.4-10.4 [facility]anoXemfetcHRZPLBASWJ3598-42-65 10:00:00 Test Item Value Reference Range Interpretation Comments Platelet (test code = Platelet) 188 133-450 [facility]anoTrqsgtgVZRFILGNRO6455-00-98 10:00:00 Test Item Value Reference Range Interpretation Comments Hgb (test code = Hgb) 10.5 14.0-18.0 [facility]anoHnjnmreWDGFPUQXHX9423-23-83 10:00:00 Test Item Value Reference Range Interpretation Comments WBC (test code = WBC) 7.7 3.7-10.4 [facility]anoDnxwhdqCADICHNWKL5777-15-30 10:00:00 Test Item Value Reference Range Interpretation Comments RBC (test code = RBC) 3.46 4.70-6.10 [facility]2015-06-20 14:44:00 Test Item Value Reference Range Interpretation Comments Lactic Acid Lvl (test code = Lactic 1.4 0.5-2.2 Acid Lvl) [facility]RahiqgoOYKTFPKZKSYG3328-52-78 14:44:00 Test Item Value Reference Range Interpretation Comments Sodium Lvl (test code = Sodium Lvl) 133 135-145 [facility]2015-06-20 09:05:00 Test Item Value Reference Range Interpretation Comments B/C Ratio (test code = B/C Ratio) 11 6-25 [facility]2015-06-20 09:05:00 Test Item Value Reference Range Interpretation Comments A/G Ratio (test code = A/G Ratio) 1.0 0.7-1.6 [facility]2015-06-20 09:05:00 Test Item Value Reference Range Interpretation Comments Globulin (test code = Globulin) 3.3 2.0-4.0 [facility]2015-06-20 09:05:00 Test Item Value Reference Range Interpretation Comments AGAP (test code = AGAP) 9.5 10.0-20.0 [facility]2015-06-20 09:05:00 Test Item Value Reference Range Interpretation Comments eGFR (test code = eGFR) 76 [facility]2015-06-20 09:05:00 Test Item Value Reference Range Interpretation Comments Sodium Lvl (test code = Sodium Lvl) 129 135-145 [facility]2015-06-20 09:05:00 Test Item Value Reference Range Interpretation Comments Bili Total (test code = Bili Total) 0.7 0.2-1.3 [facility]2015-06-20 09:05:00 Test Item Value Reference Range Interpretation Comments AST (test code = AST) 31 See_Comment [Auto mated message] The system which ge nerated this result transmit stuart reference range : <=37. The reference range was not used to interpr et this result as cherry l/abnormal. [facility]2015-06-20 09:05:00 Test Item Value Reference Range Interpretation Comments ALT (test code = ALT) 25 See_Comment [Auto mated message] The system which ge nerated this result transmit stuart reference range : <=65. The reference range was not used to interpr et this result as cherry l/abnormal. [facility]2015-06-20 09:05:00 Test Item Value Reference Range Interpretation Comments Alk Phos (test code = Alk Phos) 32 39-136 [facility]2015-06-20 09:05:00 Test Item Value Reference Range Interpretation Comments Total Protein (test code = Total 6.5 6.4-8.4 Protein) [facility]2015-06-20 09:05:00 Test Item Value Reference Range Interpretation Comments Potassium Lvl (test code = Potassium 3.5 3.5-5.1 Lvl) [facility]2015-06-20 09:05:00 Test Item Value Reference Range Interpretation Comments Albumin Lvl (test code = Albumin Lvl) 3.2 3.5-5.0 [facility]2015-06-20 09:05:00 Test Item Value Reference Range Interpretation Comments CO2 (test code = CO2) 28 24-32 [facility]Newton InsightBLOWING ROCK HOSPITALLZNTN3127-85-30 09:05:00 Test Item Value Reference Range Interpretation Comments Chloride Lvl (test code = Chloride Lvl) 95 95-109 [facility]2015-06-20 09:05:00 Test Item Value Reference Range Interpretation Comments Calcium Lvl (test code = Calcium Lvl) 8.2 8.5-10.5 [facility] BrookMidatech MUECS0602-20-92 09:05:00 Test Item Value Reference Range Interpretation Comments Glucose Lvl (test code = Glucose Lvl) 147 70-99 [facility]2015-06-20 09:05:00 Test Item Value Reference Range Interpretation Comments Creatinine Lvl (test code = Creatinine 1.0 0.5-1.4 Lvl) [facility]2015-06-20 09:05:00 Test Item Value Reference Range Interpretation Comments BUN (test code = BUN) 11 7-22 [facility]WsrsravSFWUKIJFGNFO7988-31-99 09:05:00 Test Item Value Reference Range Interpretation Comments AGAP (test code = AGAP) 10.5 10.0-20.0 [facility] SystemKuxqqqaLQLRZRRBQQXT0028-09-41 09:05:00 Test Item Value Reference Range Interpretation Comments Calcium Lvl (test code = Calcium Lvl) 8.4 8.5-10.5 [facility] SystemVapkvvqRMEXVWKTMQWH9907-16-93 09:05:00 Test Item Value Reference Range Interpretation Comments CO2 (test code = CO2) 27 24-32 [facility] SystemMhlffvhKKHEHLZEFBNT8185-10-77 09:05:00 Test Item Value Reference Range Interpretation Comments Chloride Lvl (test code = Chloride Lvl) 96 95-109 [facility] SystemIpegrjvJRGBJKLPWMGA2972-41-08 09:05:00 Test Item Value Reference Range Interpretation Comments eGFR (test code = eGFR) 76 [facility] SystemQozfsdtOJAEJNRGFSTH5193-32-70 09:05:00 Test Item Value Reference Range Interpretation Comments Potassium Lvl (test code = Potassium 3.5 3.5-5.1 Lvl) [facility] SystemIcehudoCATKJVZDDZRC6318-79-25 09:05:00 Test Item Value Reference Range Interpretation Comments Sodium Lvl (test code = Sodium Lvl) 130 135-145 [facility] SystemWozhtlgQPKEJEXSGDBM6800-66-35 09:05:00 Test Item Value Reference Range Interpretation Comments Creatinine Lvl (test code = Creatinine 1.0 0.5-1.4 Lvl) [facility] SystemXeupgvrBOQRYCASLEYO0083-57-52 09:05:00 Test Item Value Reference Range Interpretation Comments BUN (test code = BUN) 11 7-22 [facility] SystemJgencuuRAUIUAYLFULO0925-02-89 09:05:00 Test Item Value Reference Range Interpretation Comments Glucose Lvl (test code = Glucose Lvl) 145 70-99 [facility]QnfhejmSKMZLTIGYH3093-08-03 09:05:00 Test Item Value Reference Range Interpretation Comments Lymphocytes (test code = Lymphocytes) 12.7 20.0-40.0 [facility]anoBfuphibMVJCTJDOHK0990-03-29 09:05:00 Test Item Value Reference Range Interpretation Comments Segs (test code = Segs) 74.1 45.0-75.0 [facility]anoEmsjvaaUNOFSGMFEZ2434-00-96 09:05:00 Test Item Value Reference Range Interpretation Comments Monocytes (test code = Monocytes) 12.6 2.0-12.0 [facility]anoLsghzudDEJGXDBWSU4591-38-37 09:05:00 Test Item Value Reference Range Interpretation Comments Monocytes # (test code 1.6 See_Comment [Aut omated message] The = Monocytes #) system which generated this result tra nsmitted reference range : <=0.8. The reference r jose alfredo was not used to int erpret this result as normal/abnormal . [facility]anoOlzuvcqGYERRSIJAJ8921-41-67 09:05:00 Test Item Value Reference Range Interpretation Comments Lymphocytes # (test code = Lymphocytes 1.6 1.0-5.5 #) [facility]anoYekywlsZSRQUJZNDB0181-35-43 09:05:00 Test Item Value Reference Range Interpretation Comments Basophils (test code = 0.2 See_Comment [Aut omated message] The Basophils) system which ge nerated this result tra nsmitted reference range : <=1.0. The reference r jose alfredo was not used to int erpret this result as normal/abnormal . [facility]anoKnefpodKKMXOXIGIM9922-88-32 09:05:00 Test Item Value Reference Range Interpretation Comments Eosinophils (test code = 0.4 See_Comment [A utomated message] The Eosinophils) system which ge nerated this result tra nsmitted reference range : <=4.0. The reference r jose alfredo was not used to int erpret this result as normal/abnormal . [facility]anoBsozwunPLMBGVBJYC9783-03-35 09:05:00 Test Item Value Reference Range Interpretation Comments Segs-Bands # (test code = Segs-Bands #) 9.6 1.5-8.1 [facility]anoJuvmgrkTLMRBJTBFB2785-84-06 09:05:00 Test Item Value Reference Range Interpretation Comments Eosinophils # (test code 0.1 See_Comment [A utomated message] The = Eosinophils #) system whic h generated this result tra nsmitted reference range : <=0.5. The reference r jose alfredo was not used to int erpret this result as normal/abnormal . [facility]anoUnqzjlbHNMRGLJMCT0310-03-53 09:05:00 Test Item Value Reference Range Interpretation Comments RBC (test code = RBC) 3.97 4.70-6.10 [facility]anoWfoyqvoDPYGPXSSSO7392-66-64 09:05:00 Test Item Value Reference Range Interpretation Comments WBC (test code = WBC) 13.0 3.7-10.4 [facility]anoYusuwihCOZYSXTOQF5752-90-87 09:05:00 Test Item Value Reference Range Interpretation Comments MPV (test code = MPV) 9.7 7.4-10.4 [facility]anoWownjnmNOYQBOBUGS1017-98-84 09:05:00 Test Item Value Reference Range Interpretation Comments RDW (test code = RDW) 13.1 11.5-14.5 [facility]anoQlnbpsqMOVSORSMDY1669-91-48 09:05:00 Test Item Value Reference Range Interpretation Comments Platelet (test code = Platelet) 202 133-450 [facility]anoAsbssgoZVBCKCHCWP5325-02-69 09:05:00 Test Item Value Reference Range Interpretation Comments Hct (test code = Hct) 34.8 42.0-54.0 [facility]anoPnubkjmEBBBVHMLKQ0962-54-78 09:05:00 Test Item Value Reference Range Interpretation Comments MCV (test code = MCV) 87.8 80.0-94.0 [facility]anoOgmunrtFBHGZUXSIM2002-63-04 09:05:00 Test Item Value Reference Range Interpretation Comments Hgb (test code = Hgb) 11.9 14.0-18.0 [facility]anoRnbiwasFIYOQKHOYL6368-10-80 09:05:00 Test Item Value Reference Range Interpretation Comments MCH (test code = MCH) 30.1 pg 27.0-31.0 [facility]anoPchgymtQEXQOCOREF0684-72-39 09:05:00 Test Item Value Reference Range Interpretation Comments MCHC (test code = MCHC) 34.3 32.0-36.0 [facility]2015-06-20 05:11:00 Test Item Value Reference Range Interpretation Comments Lactic Acid Lvl (test code = Lactic 1.1 0.5-2.2 Acid Lvl) [facility]XemzdrbPNAPIZ1700-63-15 05:11:00 Test Item Value Reference Range Interpretation Comments VLDL (test code = VLDL) 14 [facility] SoutheastWifpwkfRLIZJN1869-93-48 05:11:00 Test Item Value Reference Range Interpretation Comments LDL (Calculated) (test code = LDL 25 (Calculated)) [facility] SoutheastFzwyfbeJKKJXC5442-46-96 05:11:00 Test Item Value Reference Range Interpretation Comments Chol (test code = Chol) 91 [facility] SoutheastQbrppxcLXWTWP3249-39-03 05:11:00 Test Item Value Reference Range Interpretation Comments CHD Risk (test code = CHD Risk) 1.75 4.00-7.30 [facility] SoutheastSjqooaiFHXGHN4597-09-91 05:11:00 Test Item Value Reference Range Interpretation Comments HDL (test code = HDL) 52 [facility] BrookQekncquUDULVG0252-65-95 05:11:00 Test Item Value Reference Range Interpretation Comments Trig (test code = Trig) 71 [facility] SoutheastTHYROID KERNU5270-52-60 05:11:00 Test Item Value Reference Range Interpretation Comments TSH (test code = TSH) 1.790 0.360-3.740 [facility] BrookannBACTERIAL - LEEJWQLA3237-62-41 00:29:00 Test Item Value Reference Range Interpretation Comments MRSA by PCR (test Negative 16(02/17/15 7:29 code = MRSA by PCR) PM) [facility] BrookannCHEM [id number] 00:28:00 Test Item Value Reference Range Interpretation Comments Lactic Acid Lvl (test code = Lactic 1.0 0.5-2.2 Acid Lvl) [facility] BrookRibxpzrIATTBCWDQO6394-01-68 00:28:00 Test Item Value Reference Range Interpretation Comments Platelet (test code = Platelet) 193 133-450 [facility] SoutheastGauddsbUIZUQQVPZO2741-92-63 00:28:00 Test Item Value Reference Range Interpretation Comments PTT (test code = PTT) 25.3 s 22.9-35.8 [facility] BrookannDRUG [id number] 21:40:00 Test Item Value Reference Range Interpretation Comments UDS Note (test code = See Note 8(02/17/15 4:40 UDS Note) PM) [facility] HermannDR[facility] [id number] 21:40:00 Test Item Value Reference Range Interpretation Comments U Phencyc Scr (test Negative *NA*(02/17/15 code = U Phencyc Scr) 4:40 PM) [facility] HermannDR[facility] [id number] 21:40:00 Test Item Value Reference Range Interpretation Comments U Opiate Scr (test Negative *NA*(02/17/15 code = U Opiate Scr) 4:40 PM) [facility] [id number] 21:40:00 Test Item Value Reference Range Interpretation Comments U Cannab Scr (test Negative *NA*(02/17/15 code = U Cannab Scr) 4:40 PM) [facility] BrookannDR[facility] [id number] 21:40:00 Test Item Value Reference Range Interpretation Comments U Cocaine Scr (test Positive *ABN*(02/17/15 code = U Cocaine Scr) 4:40 PM) [facility] [id number] 21:40:00 Test Item Value Reference Range Interpretation Comments U Benzodia Scr (test Negative *NA*(02/17/15 code = U Benzodia Scr) 4:40 PM) [facility] [id number] 21:40:00 Test Item Value Reference Range Interpretation Comments U Marilee Scr (test code Negative *NA*(02/17/15 = U Mrailee Scr) 4:40 PM) [facility] [id number] 21:40:00 Test Item Value Reference Range Interpretation Comments U Amph Scr (test code Negative *NA*(02/17/15 = U Amph Scr) 4:40 PM) [facility] [id number] 21:40:00 Test Item Value Reference Range Interpretation Comments UA Blood (test code = Negative (02/17/15 4:40 UA Blood) PM) [facility] [id number] 21:40:00 Test Item Value Reference Range Interpretation Comments UA Glucose (test code = UA >=1000 mg/dL Glucose) [facility] [id number] 21:40:00 Test Item Value Reference Range Interpretation Comments UA Bili (test code = Negative *NA*(02/17/15 UA Bili) 4:40 PM) [facility] [id number] 21:40:00 Test Item Value Reference Range Interpretation Comments UA Color (test code = Yellow *NA*(02/17/15 UA Color) 4:40 PM) [facility] [id number] 21:40:00 Test Item Value Reference Range Interpretation Comments UA Spec Grav (test code = UA Spec 1.010 1 Grav) [facility] [id number] 21:40:00 Test Item Value Reference Range Interpretation Comments UA Turbidity (test code = Clear (02/17/15 4:40 UA Turbidity) PM) [facility] [id number] 21:40:00 Test Item Value Reference Range Interpretation Comments UA pH (test code = UA pH) 6.0 1 5.0-8.0 [facility] [id number] 21:40:00 Test Item Value Reference Range Interpretation Comments UA Leuk Est (test Negative (02/17/15 4:40 code = UA Leuk Est) PM) [facility] [id number] 21:40:00 Test Item Value Reference Range Interpretation Comments UA Nitrite (test code Negative (02/17/15 4:40 = UA Nitrite) PM) [facility] [id number] 21:40:00 Test Item Value Reference Range Interpretation Comments UA Urobilinogen (test code = UA 0.2 0.1-1.0 Urobilinogen) [facility] [id number] 21:40:00 Test Item Value Reference Range Interpretation Comments UA Ketones (test code = UA Negative mg/dL Ketones) [facility] [id number] 21:40:00 Test Item Value Reference Range Interpretation Comments UA Protein (test code = UA Negative mg/dL Protein) [facility] [id number] 21:40:00 Test Item Value Reference Range Interpretation Comments UA RBC (test code = 0-2 /HPF See_Comment [Automa stuart message] The UA RBC) system which ge nerated this result tra nsmitted reference range : <=2. The reference range was not used to interpr et this result as cherry l/abnormal. [facility] [id number] 21:40:00 Test Item Value Reference Range Interpretation Comments UA Bacteria (test code = UA Few /HPF Bacteria) [facility] [id number] 21:40:00 Test Item Value Reference Range Interpretation Comments UA Sq Epi (test code = UA Sq Epi) Few /LPF [facility] [id number] 21:40:00 Test Item Value Reference Range Interpretation Comments UA WBC (test code = UA WBC) 0-2 /HPF [facility] [id number] 21:12:00 Test Item Value Reference Range Interpretation Comments Osmolality (test code = Osmolality) 255 280-300 [facility] [id number] 20:00:00 Test Item Value Reference Range Interpretation Comments U Sodium (test code = U Sodium) 53 [facility] [id number] 20:00:00 Test Item Value Reference Range Interpretation Comments U Osmolality (test code = U Osmolality) 344 300-800 [facility] [id number] 20:00:00 Test Item Value Reference Range Interpretation Comments U Creatinine (test code = U Creatinine) 36.2 [facility] [id number] 20:00:00 Test Item Value Reference Range Interpretation Comments U Chloride (test code = U Chloride) 72 [facility] [id number] 16:09:00 Test Item Value Reference Range Interpretation Comments CK MB (test code = CK MB) 7.2 0.5-3.6 [facility] [id number] 16:09:00 Test Item Value Reference Range Interpretation Comments BNP (test code = BNP) 92 [facility] [id number] 16:09:00 Test Item Value Reference Range Interpretation Comments Total CK (test code = Total CK) 493 12-191 [facility] [id number] 16:09:00 Test Item Value Reference Range Interpretation Comments CK MB Index (test 1.5 See_Comment [Automate d message] The code = CK MB Index) system w hic generated this result transmit stuart reference range : <=2.5. The reference range was not used to interpr et this result as cherry l/abnormal. [facility] [id number] 16:09:00 Test Item Value Reference Range Interpretation Comments Troponin-I (test code 0.11 See_Comment [Auto mated message] The = Troponin-I) system which g enerated this result transmit stuart reference range : <=0.40. The reference r jose alfredo was not used to interpr et this result as cherry l/abnormal. [facility] ThryveCHEM [id number] 16:09:00 Test Item Value Reference Range Interpretation Comments Procalcitonin Lvl <0.05 ng/mL See_Comment [Automate d message] (test code = The system whic h Procalcitonin Lvl) generated this result transmit stuart reference range : <=0.10. The reference range was not used to interpret this result as normal/abnormal . [facility] [id number] 16:09:00 Test Item Value Reference Range Interpretation Comments Bili Total (test code = Bili Total) 0.7 0.2-1.3 [facility] FluorofinderannCHEM [id number] 16:09:00 Test Item Value Reference Range Interpretation Comments AST (test code = AST) 28 See_Comment [Auto mated message] The system which ge nerated this result transmit stuart reference range : <=37. The reference range was not used to interpr et this result as cherry l/abnormal. [facility]2015-06-19 16:09:00 Test Item Value Reference Range Interpretation Comments Globulin (test code = Globulin) 3.5 2.0-4.0 [facility]2015-06-19 16:09:00 Test Item Value Reference Range Interpretation Comments Total Protein (test code = Total 7.3 6.4-8.4 Protein) [facility]2015-06-19 16:09:00 Test Item Value Reference Range Interpretation Comments Albumin Lvl (test code = Albumin Lvl) 3.8 3.5-5.0 [facility]2015-06-19 16:09:00 Test Item Value Reference Range Interpretation Comments Alk Phos (test code = Alk Phos) 38 39-136 [facility]2015-06-19 16:09:00 Test Item Value Reference Range Interpretation Comments ALT (test code = ALT) 24 See_Comment [Auto mated message] The system which ge nerated this result transmit stuart reference range : <=65. The reference range was not used to interpr et this result as cherry l/abnormal. [facility]2015-06-19 16:09:00 Test Item Value Reference Range Interpretation Comments A/G Ratio (test code = A/G Ratio) 1.1 0.7-1.6 [facility]2015-06-19 16:09:00 Test Item Value Reference Range Interpretation Comments B/C Ratio (test code = B/C Ratio) 11 6-25 [id number] 15:08:00 Test Item Value Reference Range Interpretation Comments Basophils # (test code 0.1 See_Comment [Aut omated message] The = Basophils #) system which generated this result tra nsmitted reference range : <=0.2. The reference r jose alfredo was not used to int erpret this result as normal/abnormal . [id number] 15:08:00 Test Item Value Reference Range Interpretation Comments Segs-Bands # (test code = Segs-Bands #) 10.7 1.5-8.1 [facility]anoVvkvgcwKPKIGFKLLH1087-56-58 15:08:00 Test Item Value Reference Range Interpretation Comments Lymphocytes # (test code = Lymphocytes 1.2 1.0-5.5 #) [facility]anoZusboazLBSGBYQKSZ0524-77-74 15:08:00 Test Item Value Reference Range Interpretation Comments Monocytes # (test code 1.5 See_Comment [Aut omated message] The = Monocytes #) system which generated this result tra nsmitted reference range : <=0.8. The reference r jose alfredo was not used to int erpret this result as normal/abnormal . [id number] 15:08:00 Test Item Value Reference Range Interpretation Comments Segs (test code = Segs) 79.6 45.0-75.0 [facility]anoYrtfmywULCQIRLJRB3089-03-45 15:08:00 Test Item Value Reference Range Interpretation Comments Lymphocytes (test code = Lymphocytes) 8.8 20.0-40.0 [facility]anoCibvhdzYJOFZWGMGV9540-88-44 15:08:00 Test Item Value Reference Range Interpretation Comments Monocytes (test code = Monocytes) 10.8 2.0-12.0 [facility]anoYdbniquUBKNLHHSDO9876-87-64 15:08:00 Test Item Value Reference Range Interpretation Comments Basophils (test code = 0.5 See_Comment [Aut omated message] The Basophils) system which ge nerated this result tra nsmitted reference range : <=1.0. The reference r jose alfredo was not used to int erpret this result as normal/abnormal . [facility]anoYapzfofHJIPWAVTGR5613-77-48 15:08:00 Test Item Value Reference Range Interpretation Comments Eosinophils (test code = 0.3 See_Comment [A utomated message] The Eosinophils) system which ge nerated this result tra nsmitted reference range : <=4.0. The reference r jose alfredo was not used to int erpret this result as normal/abnormal . [facility]anoZjwpkwiZFDKXFXMMA3262-70-57 15:08:00 Test Item Value Reference Range Interpretation Comments PT (test code = PT) 13.3 s 12.0-14.7 [facility]anoCtufftoWCUDDLGGRI0498-49-31 15:08:00 Test Item Value Reference Range Interpretation Comments PTT (test code = PTT) 26.3 s 22.9-35.8 [id number] 15:08:00 Test Item Value Reference Range Interpretation Comments INR (test code = INR) 1.01 0.85-1.17 [facility]PTBKAC[facility]AUY0750[facility]82-95 15:08:00 Test Item Value Reference Range Interpretation Comments MCHC (test code = MCHC) 33.5 32.0-36.0 [facility] OaklandRzxvclaFZGBFFLMSN1259-92-15 15:08:00 Test Item Value Reference Range Interpretation Comments RDW (test code = RDW) 13.0 11.5-14.5 [facility] OaklandZilikytYOOAUHVDJF9525-09-46 15:08:00 Test Item Value Reference Range Interpretation Comments Hct (test code = Hct) 39.1 42.0-54.0 [facility] OaklandErnscozFWDBWQDLWD6398-89-66 15:08:00 Test Item Value Reference Range Interpretation Comments WBC (test code = WBC) 13.5 3.7-10.4 [facility] OaklandOloeyagSLWIGMQLEA4780-83-91 15:08:00 Test Item Value Reference Range Interpretation Comments MCV (test code = MCV) 90.1 80.0-94.0 [facility] SoutheastLrnocztVTWGASYNDW3188-26-93 15:08:00 Test Item Value Reference Range Interpretation Comments MCH (test code = MCH) 30.2 pg 27.0-31.0 [facility] OaklandHxrligkXGIGHMHHLP3017-97-30 15:08:00 Test Item Value Reference Range Interpretation Comments MPV (test code = MPV) 9.5 7.4-10.4 [facility] SoutheastTgbcjjpLYCLFKHJDC0014-42-68 15:08:00 Test Item Value Reference Range Interpretation Comments RBC (test code = RBC) 4.34 4.70-6.10 [facility] SoutheastCpryatnMYAONWQDBC8458-87-55 15:08:00 Test Item Value Reference Range Interpretation Comments Hgb (test code = Hgb) 13.1 14.0-18.0 [facility] SoutheastCrgrcplAHBJBJPPYS3364-07-49 15:08:00 Test Item Value Reference Range Interpretation Comments Etoh (%) (test code = Etoh (%)) no gt [facility] VqllgalRSXILEDCJZ1641-73-71 15:08:00 Test Item Value Reference Range Interpretation Comments Ethanol Lvl (test code = Ethanol Lvl) no gt [facility] [id number] 15:08:00 Test Item Value Reference Range Interpretation Comments UA Ketones (test code Negative *NA*(02/17/15 = UA Ketones) 10:08 AM) [facility] AND [id number] 15:08:00 Test Item Value Reference Range Interpretation Comments UA Bili (test code = Negative *NA*(02/17/15 UA Bili) 10:08 AM) [facility] AND [id number] 15:08:00 Test Item Value Reference Range Interpretation Comments UA Urobilinogen (test code = UA 0.2 0.1-1.0 Urobilinogen) [facility] AND [id number] 15:08:00 Test Item Value Reference Range Interpretation Comments UA Blood (test code = Negative (02/17/15 10:08 UA Blood) AM) [facility] AND [id number] 15:08:00 Test Item Value Reference Range Interpretation Comments UA Nitrite (test code Negative (02/17/15 10:08 = UA Nitrite) AM) [facility] AND [id number] 15:08:00 Test Item Value Reference Range Interpretation Comments UA Leuk Est (test Negative (02/17/15 10:08 code = UA Leuk Est) AM) [facility] AND [id number] 15:08:00 Test Item Value Reference Range Interpretation Comments UA Spec Grav (test *NA*(02/17/15 10:08 AM) code = UA Spec Grav) [facility] AND [id number] 15:08:00 Test Item Value Reference Range Interpretation Comments UA Glucose (test code = UA Glucose) 100 mg/dL [facility] AND [id number] 15:08:00 Test Item Value Reference Range Interpretation Comments UA Protein (test code Negative (02/17/15 10:08 = UA Protein) AM) [facility] AND [id number] 15:08:00 Test Item Value Reference Range Interpretation Comments UA pH (test code = UA pH) 7.0 1 5.0-8.0 [facility] AND [id number] 15:08:00 Test Item Value Reference Range Interpretation Comments UA Color (test code = Yellow *NA*(02/17/15 UA Color) 10:08 AM) [facility] AND [id number] 15:08:00 Test Item Value Reference Range Interpretation Comments UA Turbidity (test code = Clear (02/17/15 10:08 UA Turbidity) AM) [facility] AND [id number] 15:08:00 Test Item Value Reference Range Interpretation Comments UA WBC (test code = UA None Seen (02/17/15 WBC) 10:08 AM) [facility] AND [id number] 15:08:00 Test Item Value Reference Range Interpretation Comments UA RBC (test None Seen See_Comment [Automated mes moises] code = UA RBC) (02/17/15 10:08 The system which AM) generated this result transmitted ref erence range: <=2. The reference range was not used to int erpret this result as normal/abnormal . [facility] AND [id number] 15:08:00 Test Item Value Reference Range Interpretation Comments UA Bacteria (test code = None Seen (02/17/15 UA Bacteria) 10:08 AM) [facility] AND [id number] 15:08:00 Test Item Value Reference Range Interpretation Comments UA Sq Epi (test code = None Seen (02/17/15 UA Sq Epi) 10:08 AM) [facility] [employer] [id number] 15:55:00 Test Item Value Reference Range Interpretation Comments eGFR (test code = eGFR) 68 [facility]2014-10-10 15:55:00 Test Item Value Reference Range Interpretation Comments Globulin (test code = Globulin) 3.3 2.0-4.0 [facility] [employer] [id number] 15:55:00 Test Item Value Reference Range Interpretation Comments A/G Ratio (test code = A/G Ratio) 1.0 0.7-1.6 [facility] ThryveBLOWING ROCK [id number] 15:55:00 Test Item Value Reference Range Interpretation Comments Alk Phos (test code = Alk Phos) 43 39-136 [facility]2014-10-10 15:55:00 Test Item Value Reference Range Interpretation Comments Bili Total (test code = Bili Total) 0.3 0.2-1.3 [facility] [employer] [id number] 15:55:00 Test Item Value Reference Range Interpretation Comments B/C Ratio (test code = B/C Ratio) 17 6-25 [facility]2014-10-10 15:55:00 Test Item Value Reference Range Interpretation Comments AGAP (test code = AGAP) 10.8 10.0-20.0 [facility]2014-10-10 15:55:00 Test Item Value Reference Range Interpretation Comments Calcium Lvl (test code = Calcium Lvl) 9.3 8.5-10.5 [facility]2014-10-10 15:55:00 Test Item Value Reference Range Interpretation Comments Total Protein (test code = Total 6.7 6.4-8.4 Protein) [facility]2014-10-10 15:55:00 Test Item Value Reference Range Interpretation Comments Albumin Lvl (test code = Albumin Lvl) 3.4 3.5-5.0 [facility]2014-10-10 15:55:00 Test Item Value Reference Range Interpretation Comments ALT (test code = ALT) 22 See_Comment [Auto mated message] The system which ge nerated this result transmit stuart reference range : <=65. The reference range was not used to interpr et this result as cherry l/abnormal. [facility]2014-10-10 15:55:00 Test Item Value Reference Range Interpretation Comments AST (test code = AST) 15 See_Comment [Auto mated message] The system which ge nerated this result transmit stuart reference range : <=37. The reference range was not used to interpr et this result as cherry l/abnormal. [facility]2014-10-10 15:55:00 Test Item Value Reference Range Interpretation Comments CO2 (test code = CO2) 36 24-32 [facility]2014-10-10 15:55:00 Test Item Value Reference Range Interpretation Comments Glucose Lvl (test code = Glucose Lvl) 301 70-99 [facility]2014-10-10 15:55:00 Test Item Value Reference Range Interpretation Comments BUN (test code = BUN) 19 7-22 [facility]2014-10-10 15:55:00 Test Item Value Reference Range Interpretation Comments Sodium Lvl (test code = Sodium Lvl) 137 135-145 [facility]2014-10-10 15:55:00 Test Item Value Reference Range Interpretation Comments Creatinine Lvl (test code = Creatinine 1.1 0.5-1.4 Lvl) [facility]2014-10-10 15:55:00 Test Item Value Reference Range Interpretation Comments Potassium Lvl (test code = Potassium 4.8 3.5-5.1 Lvl) [facility]2014-10-10 15:55:00 Test Item Value Reference Range Interpretation Comments Chloride Lvl (test code = Chloride Lvl) 95 95-109 [facility]FghnjqhQHQXTPOUJJ1181-67-75 15:55:00 Test Item Value Reference Range Interpretation Comments MCH (test code = MCH) 31.6 pg 27.0-31.0 [facility]anoUimqgwaYPZZISFUGT2681-53-64 15:55:00 Test Item Value Reference Range Interpretation Comments MCHC (test code = MCHC) 34.5 32.0-36.0 [facility]anoAplnzfgNDDCJECIHI6809-86-48 15:55:00 Test Item Value Reference Range Interpretation Comments MCV (test code = MCV) 91.6 80.0-94.0 [facility]anoSelolykLMFMUHBGSQ1735-19-56 15:55:00 Test Item Value Reference Range Interpretation Comments Hct (test code = Hct) 41.8 42.0-54.0 [facility]anoGohqkhoVOWYMYJTXO4101-81-46 15:55:00 Test Item Value Reference Range Interpretation Comments Platelet (test code = Platelet) 187 133-450 [facility]anoJdzlaxaOLXRUHAVJZ9996-98-58 15:55:00 Test Item Value Reference Range Interpretation Comments MPV (test code = MPV) 10.2 7.4-10.4 [facility]anoLlpvnitEDSECOIMUM9790-01-80 15:55:00 Test Item Value Reference Range Interpretation Comments RDW (test code = RDW) 14.1 11.5-14.5 [facility]anoEqybwybAAULAYSHAS5878-94-26 15:55:00 Test Item Value Reference Range Interpretation Comments RBC (test code = RBC) 4.56 4.70-6.10 [facility]anoOuiclhmXPCWGYCCOO5245-04-42 15:55:00 Test Item Value Reference Range Interpretation Comments Hgb (test code = Hgb) 14.4 14.0-18.0 [facility]anoFvgekdeDWHRAOMSAF3612-33-68 15:55:00 Test Item Value Reference Range Interpretation Comments WBC (test code = WBC) 14.8 3.7-10.4 [facility] [id number] 14:28:00 Test Item Value Reference Range Interpretation Comments Total CK (test code = Total CK) 67 12-191 [facility] [id number] 14:28:00 Test Item Value Reference Range Interpretation Comments Troponin-I (test code no gt See_Comment [Auto mated message] The = Troponin-I) system which g enerated this result transmit stuart reference range : <=0.40. The reference r jose alfredo was not used to interpr et this result as cherry l/abnormal. [facility]CARD[facility] [id number] 09:10:00 Test Item Value Reference Range Interpretation Comments BNP (test code = BNP) 13 [facility] [id number] 09:10:00 Test Item Value Reference Range Interpretation Comments Total CK (test code = Total CK) 65 12-191 [facility] [id number] 09:10:00 Test Item Value Reference Range Interpretation Comments Troponin-I (test code no gt See_Comment [Auto mated message] The = Troponin-I) system which g enerated this result transmit stuart reference range : <=0.40. The reference r jose alfredo was not used to interpr et this result as cherry l/abnormal. [facility] [employer] [id number] 09:10:00 Test Item Value Reference Range Interpretation Comments eGFR (test code = eGFR) 76 [facility] [id number] 09:10:00 Test Item Value Reference Range Interpretation Comments Creatinine Lvl (test code = Creatinine 1.0 0.5-1.4 Lvl) [facility] SoutheastUpwbohtYRESTKFXKW4027-01-88 09:10:00 Test Item Value Reference Range Interpretation Comments PTT (test code = PTT) 29.8 s 22.9-35.8 [facility] RrfctadPRVWZQPQNV1482-05-20 09:10:00 Test Item Value Reference Range Interpretation Comments Platelet (test code = Platelet) 174 133-450 [facility] [id number] 02:15:29 Test Item Value Reference Range Interpretation Comments UA Color (test code = Yellow *NA*(06/08/14 UA Color) 9:15 PM) [facility] [id number] 02:15:29 Test Item Value Reference Range Interpretation Comments UA Leuk Est (test Negative (06/08/14 9:15 code = UA Leuk Est) PM) [facility] AND [id number] 02:15:29 Test Item Value Reference Range Interpretation Comments UA Nitrite (test code Negative (06/08/14 9:15 = UA Nitrite) PM) [facility] AND [id number] 02:15:29 Test Item Value Reference Range Interpretation Comments UA Urobilinogen (test code = UA 0.2 0.1-1.0 Urobilinogen) [facility] AND [id number] 02:15:29 Test Item Value Reference Range Interpretation Comments UA Glucose (test code Negative (06/08/14 9:15 = UA Glucose) PM) [facility] AND [id number] 02:15:29 Test Item Value Reference Range Interpretation Comments UA Protein (test code = Trace *ABN*(06/08/14 UA Protein) 9:15 PM) [facility] AND [id number] 02:15:29 Test Item Value Reference Range Interpretation Comments UA pH (test code = UA pH) 6.0 1 5.0-8.0 [facility] AND [id number] 02:15:29 Test Item Value Reference Range Interpretation Comments UA Spec Grav (test >=1.030 *ABN*(06/08/14 code = UA Spec Grav) 9:15 PM) [facility] AND [id number] 02:15:29 Test Item Value Reference Range Interpretation Comments UA Ketones (test code Negative *NA*(06/08/14 = UA Ketones) 9:15 PM) [facility] AND [id number] 02:15:29 Test Item Value Reference Range Interpretation Comments UA Bili (test code = Negative *NA*(06/08/14 UA Bili) 9:15 PM) [facility] AND [id number] 02:15:29 Test Item Value Reference Range Interpretation Comments UA Turbidity (test code = Clear (06/08/14 9:15 UA Turbidity) PM) [facility] AND [id number] 02:15:29 Test Item Value Reference Range Interpretation Comments UA Blood (test code = Negative (06/08/14 9:15 UA Blood) PM) [facility] AND [id number] 02:15:29 Test Item Value Reference Range Interpretation Comments UA WBC (test code = UA WBC) 0-2 /HPF [facility] [id number] 02:15:29 Test Item Value Reference Range Interpretation Comments UA Mucus (test code = UA Mucus) Rare /LPF [facility] [id number] 02:15:29 Test Item Value Reference Range Interpretation Comments UA Sq Epi (test code = UA Sq Epi) Rare /LPF [facility] [id number] 02:15:29 Test Item Value Reference Range Interpretation Comments UA RBC (test code = 0-2 /HPF See_Comment [Automa stuart message] The UA RBC) system which ge nerated this result tra nsmitted reference range : <=2. The reference range was not used to interpr et this result as cherry l/abnormal. [facility] AND [id number] 02:15:29 Test Item Value Reference Range Interpretation Comments UA Fine Gran (test code = UA Fine 0-2 /LPF Gran) [facility] SoutheastCARAmarantus BioSciencesAC [id number] 01:45:14 Test Item Value Reference Range Interpretation Comments CK MB (test code = CK MB) 1.3 0.5-3.6 [facility]annC[facility] [id number] 01:45:14 Test Item Value Reference Range Interpretation Comments Total CK (test code = Total CK) 93 12-191 [facility] SoutheastCARDIAC [id number] 01:45:14 Test Item Value Reference Range Interpretation Comments Troponin-I (test code no gt See_Comment [Auto mated message] The = Troponin-I) system which g enerated this result transmit stuart reference range : <=0.40. The reference r jose alfredo was not used to interpr et this result as cherry l/abnormal. [facility]annCARDIAC [id number] 01:45:14 Test Item Value Reference Range Interpretation Comments BNP (test code = BNP) 18 [facility]annCARDIAC [id number] 01:45:14 Test Item Value Reference Range Interpretation Comments CK MB Index (test 1.4 See_Comment [Automate d message] The code = CK MB Index) system w [facility] generated this result transmit stuart reference range : <=2.5. The reference range was not used to interpr et this result as cherry l/abnormal. [facility]2014-10-09 01:45:14 Test Item Value Reference Range Interpretation Comments eGFR (test code = eGFR) 68 [id number] 01:25:19 Test Item Value Reference Range Interpretation Comments INR (test code = INR) 0.90 0.85-1.17 [facility]AvwbrktQMLCQRBIPB2092-38-86 01:25:19 Test Item Value Reference Range Interpretation Comments PTT (test code = PTT) 28.6 s 22.9-35.8 [facility]QptxaeeXIBOSEKNCW8781-94-20 01:25:19 Test Item Value Reference Range Interpretation Comments PT (test code = PT) 12.1 s 12.0-14.7 [facility]2014-10-09 01:25:00 Test Item Value Reference Range Interpretation Comments ALT (test code = ALT) 29 See_Comment [Auto mated message] The system which ge nerated this result transmit stuart reference range : <=65. The reference range was not used to interpr et this result as cherry l/abnormal. [facility]2014-10-09 01:25:00 Test Item Value Reference Range Interpretation Comments A/G Ratio (test code = A/G Ratio) 0.9 0.7-1.6 [facility]2014-10-09 01:25:00 Test Item Value Reference Range Interpretation Comments Alk Phos (test code = Alk Phos) 53 39-136 [facility]2014-10-09 01:25:00 Test Item Value Reference Range Interpretation Comments AST (test code = AST) 24 See_Comment [Auto mated message] The system which ge nerated this result transmit stuart reference range : <=37. The reference range was not used to interpr et this result as cherry l/abnormal. [facility]2014-10-09 01:25:00 Test Item Value Reference Range Interpretation Comments Bili Total (test code = Bili Total) 0.5 0.2-1.3 [facility]2014-10-09 01:25:00 Test Item Value Reference Range Interpretation Comments B/C Ratio (test code = B/C Ratio) 18 6-25 [place] 279504-10-09 01:25:00 Test Item Value Reference Range Interpretation Comments Globulin (test code = Globulin) 4.0 2.0-4.0 [facility]2014-10-09 01:25:00 Test Item Value Reference Range Interpretation Comments Total Protein (test code = Total 7.5 6.4-8.4 Protein) [facility]2014-10-09 01:25:00 Test Item Value Reference Range Interpretation Comments Albumin Lvl (test code = Albumin Lvl) 3.5 3.5-5.0 [facility]2014-10-09 01:25:00 Test Item Value Reference Range Interpretation Comments Potassium Lvl (test code = Potassium 4.5 3.5-5.1 Lvl) [facility]2014-10-09 01:25:00 Test Item Value Reference Range Interpretation Comments CO2 (test code = CO2) 41 24-32 [facility]2014-10-09 01:25:00 Test Item Value Reference Range Interpretation Comments Chloride Lvl (test code = Chloride Lvl) 96 95-109 [facility]2014-10-09 01:25:00 Test Item Value Reference Range Interpretation Comments Calcium Lvl (test code = Calcium Lvl) 9.2 8.5-10.5 [facility]2014-10-09 01:25:00 Test Item Value Reference Range Interpretation Comments AGAP (test code = AGAP) 6.5 10.0-20.0 [facility]2014-10-09 01:25:00 Test Item Value Reference Range Interpretation Comments Sodium Lvl (test code = Sodium Lvl) 139 135-145 [facility]2014-10-09 01:25:00 Test Item Value Reference Range Interpretation Comments Creatinine Lvl (test code = Creatinine 1.1 0.5-1.4 Lvl) [facility]2014-10-09 01:25:00 Test Item Value Reference Range Interpretation Comments BUN (test code = BUN) 20 7-22 [facility]2014-10-09 01:25:00 Test Item Value Reference Range Interpretation Comments Glucose Lvl (test code = Glucose Lvl) 199 70-99 [facility]GclbeqwPPXCFSXYWK2678-67-24 01:25:00 Test Item Value Reference Range Interpretation Comments MCV (test code = MCV) 90.8 80.0-94.0 [facility]anoFrhdhvqHWTTWCBFXG7106-97-83 01:25:00 Test Item Value Reference Range Interpretation Comments Hct (test code = Hct) 45.4 42.0-54.0 [facility]anoNsijpwwHBZMAXBUIO4484-69-21 01:25:00 Test Item Value Reference Range Interpretation Comments MCH (test code = MCH) 31.6 pg 27.0-31.0 [facility]anoKwnwclaUQYQAOBAOT0356-81-94 01:25:00 Test Item Value Reference Range Interpretation Comments RBC (test code = RBC) 5.00 4.70-6.10 [facility]anoJnbjileJHYKRDHJTS5479-95-33 01:25:00 Test Item Value Reference Range Interpretation Comments Hgb (test code = Hgb) 15.8 14.0-18.0 [facility]anoDmzdvkmGAGYXIQIOE9998-78-30 01:25:00 Test Item Value Reference Range Interpretation Comments WBC (test code = WBC) 8.5 3.7-10.4 [facility]anoPborblfAWJOHAIVLT8764-55-67 01:25:00 Test Item Value Reference Range Interpretation Comments MCHC (test code = MCHC) 34.8 32.0-36.0 [facility]anoX[id number] 01:25:00 Test Item Value Reference Range Interpretation Comments Platelet (test code = Platelet) 186 133-450 [facility]anoYvqlgioDJMWCFDZKR4141-57-21 01:25:00 Test Item Value Reference Range Interpretation Comments RDW (test code = RDW) 14.1 11.5-14.5 [facility]anoWtnzgooRJHBCYXSZY1309-38-22 01:25:00 Test Item Value Reference Range Interpretation Comments MPV (test code = MPV) 9.6 7.4-10.4 [facility]anoOmaapssQBUGUMDSXN9488-16-29 01:25:00 Test Item Value Reference Range Interpretation Comments Eosinophils # (test code 0.3 See_Comment [A utomated message] The = Eosinophils #) system whic h generated this result tra nsmitted reference range : <=0.5. The reference r jose alfredo was not used to int erpret this result as normal/abnormal . [facility]anoGdbfpzjSNQPWCVWUE9744-04-30 01:25:00 Test Item Value Reference Range Interpretation Comments Basophils # (test code 0.1 See_Comment [Aut omated message] The = Basophils #) system which generated this result tra nsmitted reference range : <=0.2. The reference r jose alfredo was not used to int erpret this result as normal/abnormal . [facility]anoXrysexnEXFUFLSYCA1104-68-72 01:25:00 Test Item Value Reference Range Interpretation Comments Monocytes # (test code 1.1 See_Comment [Aut omated message] The = Monocytes #) system which generated this result tra nsmitted reference range : <=0.8. The reference r jose alfredo was not used to int erpret this result as normal/abnormal . [facility]anoOccjvxmSFUPEWKARI8912-99-08 01:25:00 Test Item Value Reference Range Interpretation Comments Segs (test code = Segs) 62.9 45.0-75.0 [id number] 01:25:00 Test Item Value Reference Range Interpretation Comments Lymphocytes # (test code = Lymphocytes 1.7 1.0-5.5 #) [id number] 01:25:00 Test Item Value Reference Range Interpretation Comments Eosinophils (test code = 3.0 See_Comment [A utomated message] The Eosinophils) system which ge nerated this result tra nsmitted reference range : <=4.0. The reference r jose alfredo was not used to int erpret this result as normal/abnormal . [facility]anoPafqdeiOXDSJYKUIH5207-57-05 01:25:00 Test Item Value Reference Range Interpretation Comments Basophils (test code = 1.3 See_Comment [Aut omated message] The Basophils) system which ge nerated this result tra nsmitted reference range : <=1.0. The reference r jose alfredo was not used to int erpret this result as normal/abnormal . [id number] 01:25:00 Test Item Value Reference Range Interpretation Comments Monocytes (test code = Monocytes) 13.0 2.0-12.0 [facility]a[id number] 01:25:00 Test Item Value Reference Range Interpretation Comments Lymphocytes (test code = Lymphocytes) 19.8 20.0-40.0 [facility]anoEleyxesSYDEQZNJWQ1024-69-75 01:25:00 Test Item Value Reference Range Interpretation Comments Segs-Bands # (test code = Segs-Bands #) 5.3 1.5-8.1 [facility]
--- NOTE | 2022-08-29 09:53 | ER ---
Nurse's Notes [facility] Name: Michael Duncan Age: 77 yrs Sex: Male : 1945 Arrival Date: 08/29/2022 Time: 09:37 Bed 4 Private MD: Diagnosis: Fall from wheelchair;Acute respiratory failure with hypercapnia;Pulmonary edema Presentation: 08/29 09:51 Chief complaint: EMS states: patient fell at long-term while trying to transfer ko1 himself out of bed. He did not hit his head, no pain, long-term wanted him checked out since he is on xarelto. Coronavirus screen: At this time, the client does not indicate any symptoms associated with coronavirus-19. Ebola Screen: No symptoms or risks identified at this time. Initial Sepsis Screen: Does the patient meet any 2 criteria? No. Patient's initial sepsis screen is negative. Does the patient have a suspected source of infection? No. Patient's initial sepsis screen is negative. Risk Assessment: Do you want to hurt yourself or someone else? Patient reports no desire to harm self or others. Onset of symptoms was August 29, 2022. 09:51 Method Of Arrival: EMS: [facility] ko1 09:51 Acuity: SHAZIA 4 ko1 Triage Assessment: 09:54 General: Appears in no apparent distress. comfortable, Behavior is calm, cooperative, ko1 appropriate for age. Historical: - Allergies: 09:54 caffiene; ko1 09:54 Codeine; ko1 - PMHx: 09:54 Bipolar disorder; CHF; COPD; Dementia; Depression; Diabetes - NIDDM; High Cholesterol; ko1 Hyperlipidemia; Hypertension; - Immunization history:: Adult Immunizations up to date. - Social history:: Smoking status: Patient denies any tobacco usage or history of. Screenin:37 [facility] ED Fall Risk Assessment (Adult) Score/Fall Risk Level 3 or more points = High hb Risk Oriented to surroundings, Maintained a safe environment. Abuse screen: Denies threats or abuse. Denies injuries from another. Nutritional screening: No deficits noted. Tuberculosis screening: No symptoms or risk factors identified. Assessment: 09:39 General: Appears in no apparent distress. Behavior is calm, cooperative. Pain: Denies hb pain. Neuro: Level of Consciousness is awake, alert, obeys commands, Oriented to person, place, time, situation. Cardiovascular: Patient's skin is warm and dry. Respiratory: Respiratory effort is even, unlabored. GI: No signs and/or symptoms were reported involving the gastrointestinal system. : No signs and/or symptoms were reported regarding the genitourinary system. EENT: No signs and/or symptoms were reported regarding the EENT system. Derm: Skin is pink, warm \\T\\ dry. Musculoskeletal: No signs and/or symptoms reported regarding the musculoskeletal system. 10:20 Reassessment: No changes from previously documented assessment. Patient is alert, ko1 oriented x 3, equal unlabored respirations, skin warm/dry/pink. asked patient again if he hit his head or lost consciousness, patient replied "no". No apparent injuries after thorough head to toe assessment. Patient denies pain at this time. 12:30 Reassessment: Patient appears in no apparent distress at this time. No changes from previously documented assessment. Patient and/or family updated on plan of care and expected duration. Pain level reassessed. 15:00 Reassessment: Patient appears in no apparent distress at this time. No changes from previously documented assessment. Patient and/or family updated on plan of care and expected duration. Pain level reassessed. 17:01 Reassessment: Patient appears in no apparent distress at this time. Patient and/or hb family updated on plan of care and expected duration. Pain level reassessed. Patient is alert, oriented x 3, equal unlabored respirations, skin warm/dry/pink. 18:46 Reassessment: Patient appears in no apparent distress at this time. Patient and/or hb family updated on plan of care and expected duration. Pain level reassessed. Patient is alert, oriented x 3, equal unlabored respirations, skin warm/dry/pink. 19:30 General: Appears comfortable, Behavior is calm, cooperative. Pain: Denies pain. Neuro: ha1 Level of Consciousness is awake, alert, obeys commands, Oriented to person, place, time, situation. Cardiovascular: Patient's skin is warm and dry. Respiratory: Airway is patent Respiratory effort is even, unlabored, Respiratory pattern is regular, symmetrical. GI: No signs and/or symptoms were reported involving the gastrointestinal system. Abdomen is non-distended, obese. GI: No signs and/or symptoms were reported involving the gastrointestinal system. :. EENT: No deficits noted. No signs and/or symptoms were reported regarding the EENT system. Derm: Skin is pink, warm \\T\\ dry. Musculoskeletal: Circulation, motion, and sensation intact. Vital Signs: 09:51 BP 124 / 94; Pulse 84; Resp 14; Temp 97.4(O); Pulse Ox 98% on 3 lpm NC; Pain 0/10; ko1 10:20 BP 118 / 82; Pulse 78; Pulse Ox 99% 3 lpm ; ko1 12:45 BP 112 / 70; Pulse 63; Pulse Ox 95% on BiPAP; ko1 14:19 BP 135 / 46; Pulse 71; Pulse Ox 100% on BiPAP; ko1 15:32 BP 101 / 84; Pulse 72; Resp 15; Pulse Ox 100% on 100% BiPAP; hb 16:00 BP 135 / 87; Pulse 79; Pulse Ox 96% on BiPAP; ko1 17:00 BP 130 / 73; Pulse 68; Pulse Ox 98% on BiPAP; ko1 18:00 BP 112 / 98; Pulse 65; Pulse Ox 98% on 3 lpm NC; ko1 19:40 BP 114 / 98; Pulse 68; Resp 20 S; Pulse Ox 98% on 3 lpm NC; ha1 Trauma Score (Adult): 10:15 Eye Response: spontaneous(1); Verbal Response: oriented(1); Motor Response: obeys ko1 commands(2); Systolic BP: > 89 mm Hg(4); Respiratory Rate: 10 to 29 per min(4); [place] Score: 15; Trauma Score: 12 ED Course: 09:37 Patient arrived in ED. ko1 09:37 Deborah Brito MD is Attending Physician. sd2 09:37 Maintain EMS IV. Dressing intact. Good blood return noted. Site clean \\T\\ dry. Gauge \\T\\ hb site: 20g R hand. 09:38 Arm band placed on. hb 09:39 Michell Strickland RN is Primary Nurse. ko1 09:54 Triage completed. ko1 10:20 No provider procedures requiring assistance completed. ko1 10:20 Patient has correct armband on for positive identification. Fall risk band placed. Bed ko1 in low position. Call light in reach. Side rails up X2. Client placed on continuous cardiac and pulse oximetry monitoring. NIBP monitoring applied. desk monitor on. 11:15 BNP Sent. ko1 11:15 Troponin High Sensitivity Sent. ko1 11:15 Magnesium Sent. ko1 11:15 CMP Sent. ko1 11:15 CBC with Diff Sent. ko1 11:50 XRAY Chest (1 view) In Process Unspecified. EDMS 12:12 Radiology exam delayed due to Pt is on bipap. ls3 13:22 Head C Spine Mpr Wo Con In Process Unspecified. EDMS 13:44 Hiro Rasheed is Hospitalizing Provider. sd2 13:59 SARS RAPID Sent. ko1 20:32 Patient admitted, IV remains in place. ha1 Administered Medications: 12:20 Drug: Lasix (furosemide) 80 mg Route: IVP; Site: right hand; ko1 Medication: 10:20 VIS not applicable for this client. ko1 Outcome: 09:52 Discharge ordered by . sd2 13:45 Decision to Hospitalize by Provider. sd2 20:31 Admitted to Med/surg accompanied by tech, via stretcher, with oxygen, with chart. ha1 20:31 Condition: stable 20:34 Patient left the ED. ha1 Signatures: Dispatcher [employer] EDMS Nirali Duran RN RN hb Kristen De Jesus ls3 Deborah Brito MD MD sd2 Elis Ruiz RN RN ha1 Michell Strickland RN RN ko1
--- NOTE | 2022-08-29 09:53 | EDPHYS ---
Physician Documentation [facility] Name: Michael Duncan Age: 77 yrs Sex: Male : 1945 Arrival Date: 08/29/2022 Time: 09:37 Bed 4 Private MD: ED Physician Deborah Brito HPI: 08/29 09:48 This 77 yrs old Male presents to ER via Unassigned with complaints of fall without sd2 complaints. 09:48 77 yo M presents via EMS with CC of fall. Pt was transferring from his wheelchair at [facility] the snf and experienced a fall. He denies head hitting or LOC. Denies any areas of pain. EMS reports patient was sent because he is on Xarelto to make sure everything is okay. Pt has no current complaints and states he feels well. Reports hx of recurrent falls which is why he is in the snf and that this is not new for him. . Historical: - Allergies: 09:54 caffiene; ko1 09:54 Codeine; ko1 - PMHx: 09:54 Bipolar disorder; CHF; COPD; Dementia; Depression; Diabetes - NIDDM; High Cholesterol; ko1 Hyperlipidemia; Hypertension; - Immunization history:: Adult Immunizations up to date. - Social history:: Smoking status: Patient denies any tobacco usage or history of. ROS: 09:48 Constitutional: Negative for fever, chills, and weight loss, Eyes: Negative for injury, sd2 pain, redness, and discharge, Neck: Negative for injury, pain, and swelling, Cardiovascular: Negative for chest pain, palpitations, and edema, Respiratory: Negative for shortness of breath, cough, wheezing. Abdomen/GI: Negative for abdominal pain, nausea, vomiting, diarrhea. Back: Negative for injury and pain, : Negative for dysuria, frequency or hematuria. MS/Extremity: Negative for injury and deformity, Skin: Negative for injury, rash, and discoloration, Neuro: Negative for headache, numbness and tingling. Exam: 09:48 Constitutional: This is a well developed, well nourished patient who is awake, alert, sd2 and in no acute distress. Head/Face: Normocephalic, atraumatic. Eyes: EOMI, normal conjunctiva bilaterally Neck: Trachea midline, no thyromegaly or masses palpated, and no cervical lymphadenopathy. Supple, full range of motion without nuchal rigidity, or vertebral point tenderness. No Meningismus. Chest/axilla: Normal chest wall appearance and motion. Nontender with no deformity. Cardiovascular: Regular rate and rhythm with a normal S1 and S2. No gallops, murmurs, or rubs. 2+ distal pulses. Respiratory: Lungs have equal breath sounds bilaterally, clear to auscultation and percussion. No rales, rhonchi or wheezes noted. No increased work of breathing, no retractions or nasal flaring. Abdomen/GI: Soft, non-tender, with normal bowel sounds. No guarding or rebound. No evidence of tenderness throughout. Back: No spinal tenderness. No costovertebral tenderness. Full range of motion. Skin: Warm, dry with normal turgor. Normal color with no rashes, no lesions, and no evidence of cellulitis. MS/ Extremity: Pulses equal, no cyanosis. Neurovascular intact. Full, normal range of motion intact of all extremities without pain. Psych: Awake, alert, with orientation to person, place and time. Behavior, mood, and affect are within normal limits. 12:10 ECG was reviewed by the Attending Physician. Atrial fibrillation, rate 74, no STEMI sd2 criteria Vital Signs: 09:51 BP 124 / 94; Pulse 84; Resp 14; Temp 97.4(O); Pulse Ox 98% on 3 lpm NC; Pain 0/10; ko1 10:20 BP 118 / 82; Pulse 78; Pulse Ox 99% 3 lpm ; ko1 12:45 BP 112 / 70; Pulse 63; Pulse Ox 95% on BiPAP; ko1 14:19 BP 135 / 46; Pulse 71; Pulse Ox 100% on BiPAP; ko1 15:32 BP 101 / 84; Pulse 72; Resp 15; Pulse Ox 100% on 100% BiPAP; hb 16:00 BP 135 / 87; Pulse 79; Pulse Ox 96% on BiPAP; ko1 17:00 BP 130 / 73; Pulse 68; Pulse Ox 98% on BiPAP; ko1 18:00 BP 112 / 98; Pulse 65; Pulse Ox 98% on 3 lpm NC; ko1 19:40 BP 114 / 98; Pulse 68; Resp 20 S; Pulse Ox 98% on 3 lpm NC; ha1 Trauma Score (Adult): 10:15 Eye Response: spontaneous(1); Verbal Response: oriented(1); Motor Response: obeys ko1 commands(2); Systolic BP: > 89 mm Hg(4); Respiratory Rate: 10 to 29 per min(4); Kimberlyn Score: 15; Trauma Score: 12 MDM: 09:37 Patient medically screened. sd2 09:48 Differential diagnosis: Differential diagnosis includes but is not limited to: sd2 Fracture, contusion, abrasion, closed head injury, pneumothorax, intra-abdominal injury, intracranial hemorrhage, spinal injury among others. Data reviewed: vital signs, nurses notes, EMS record. 09:48 Counseling: I had a detailed discussion with the patient and/or guardian regarding: the sd2 historical points, exam findings, and any diagnostic results supporting the discharge/admit diagnosis, the need for outpatient follow up, to return to the emergency department if symptoms worsen or persist or if there are any questions or concerns that arise at home. Medical screen evaluation completed. [facility] emergency medical condition absent. ED course: Patient is very well-appearing and nontoxic at this time with very stable vital signs. He has no acute complaints. All extremities were put through full range of motion with no pain able to be elicited. There are no midline spinal step-offs or deformities. The patient did not experience any head hitting or loss of consciousness. I do not see any further indications for emergent work-up at this time. The patient does not appear to have any significant injuries that I can ascertain from his exam or history at this time from the fall. His fall does not appear to be a new symptom for him either as this has been ongoing for quite some time. The patient is comfortable with the plan for discharge back to his snf at this time and verbalizes understanding of discharge plan and strict return precautions.. 11:18 ED course: Report called back to nurse at facility who now reports that although the sd2 fall was unwitnessed the patient did hit his head. They are also reporting intermittent confusion and that patient has a history of high CO2 causing this due to not wearing his CPAP all the time at night. Will initiate further workup. CO2 elevated and BIPAP started.. 13:42 Data reviewed: lab test result(s), EKG, radiologic studies. Counseling: I had a sd2 detailed discussion with the patient and/or guardian regarding: the need for further work-up and treatment in the hospital. ED course: Further workup shows elevated BNP with chronic interstitial edema on CXR. Hypercapnic respiratory acidosis also present. Pt placed on BIPAP and IV Lasix given as well. CT head/C-spine with no acute abnormalities. Pt to be admitted for further management at this time. . 08/29 10:28 Order name: ABG: Venous; Complete Time: 11:44 sd2 08/29 11:02 Order name: CBC with Diff; Complete Time: 11:44 sd2 08/29 11:02 Order name: CMP; Complete Time: 11:50 sd2 08/29 11:02 Order name: Magnesium; Complete Time: 11:50 sd2 08/29 11:02 Order name: Troponin High Sensitivity; Complete Time: 11:50 sd2 08/29 11:02 Order name: BNP; Complete Time: 11:50 sd2 08/29 13:46 Order name: SARS RAPID; Complete Time: 14:18 sd2 08/29 16:20 Order name: Urinalysis [facility] 08/29 16:20 Order name: Basic Metabolic Panel [facility] 08/29 16:20 Order name: Basic Metabolic Panel [facility] 08/29 16:20 Order name: CBC with Automated Diff [facility] 08/29 16:20 Order name: CBC with Automated Diff [facility] 08/29 16:20 Order name: Magnesium [facility] 08/29 16:20 Order name: Magnesium [facility] 08/29 11:02 Order name: EKG - Nurse/Tech; Complete Time: 11:15 sd2 08/29 11:02 Order name: XRAY Chest (1 view); Complete Time: 12:08 sd2 08/29 11:04 Order name: CT Head C Spine sd2 08/29 11:08 Order name: Head C Spine Mpr Wo Con; Complete Time: 13:40 [facility] 08/29 16:20 Order name: Patient Safety Orders [facility] 08/29 16:20 Order name: CONS Physician Consult [facility] 08/29 16:20 Order name: Physical Therapy Consult [facility] 08/29 16:20 Order name: 60g Consistent Carbohydrate (ADA 1800/2000) [facility] 08/29 16:20 Order name: Phosphorus [facility] 08/29 16:20 Order name: Phosphorus [facility] 08/29 16:20 Order name: Thyroid Stimulating Hormone [facility] 08/29 16:20 Order name: Thyroid Stimulating Hormone [facility] 08/29 17:42 Order name: Glucose, Ancillary Testing [facility] 08/29 19:29 Order name: Flu tw5 Administered Medications: 12:20 Drug: Lasix (furosemide) 80 mg Route: IVP; Site: right hand; ko1 Disposition Summary: 08/29/22 13:45 Hospitalization Ordered Hospitalization Status: Inpatient Admission sd2 Provider: Hiro Rasheed2 Location: Telemetry/MedSurg (Inpatient)(08/29/22 13:45) sd2 Condition: Stable(08/29/22 13:45) sd2 Problem: an acute exacerbation(08/29/22 13:45) sd2 Symptoms: have improved(08/29/22 13:45) sd2 Bed/Room Type: Standard ne2 Room Assignment: [facility](08/29/22 19:54) dw Diagnosis - Fall from wheelchair sd2 - Acute respiratory failure with hypercapnia sd2 - Pulmonary edema sd2 Forms: - Medication Reconciliation Form sd2 - SBAR form sd2 Critical care time excluding procedures: 13:42 Critical care time: Bedside Care: 30 minutes, Consultation: 5 minutes. Total time: 35 sd2 minutes Signatures: Dispatcher [employer] EDPatricia Drake RN RN dw Nirali Duran RN RN hb Dunlop, Stephanie, MD MD sd2 Michell Strickland RN RN ko1 Corrections: (The following items were deleted from the chart) 11:02 09:52 Home sd2 sd2 11:02 09:52 new sd2 sd2 11:02 09:52 are resolved sd2 sd2 11:02 09:52 Stable sd2 sd2 11:02 09:52 Fall from non-moving wheelchair sd2 sd2 19:54 13:45 sd2 dw
[2022-08-29 10:50] LABS: Arterial Blood Carboxyhemoglob 1.5 % (0-1.5); Blood Gas Oxyhemoglobin 89.7 % (94-97); Blood O2 Saturation 92.1 % (92-98.5)
[2022-08-29 11:25] LABS: Absolute Lymphocytes (CBC) 0.6 K/uL (0.7-4.9); Hematocrit 31.5 % (39.6-49.0); Lymphocytes % 9.9 % (15.3-44.8); MCV 91.5 fL (80-100); MPV 8.9 fL (7.6-11.3); RBC Red Blood Cell Count 3.45 M/uL (4.33-5.43)
[2022-08-29 11:48] LABS: Albumin 2.3 g/dL (3.4-5.0); Bilirubin Total 0.3 mg/dL (0.2-1.0); Protein, Total 6.2 g/dL (6.4-8.2); Troponin High Sensitivity 20.4 pg/mL (<58.9)
[2022-08-29 11:49] LABS: Magnesium 2.3 mg/dL (1.6-2.4); Potassium 4.2 mmol/L (3.5-5.1)
--- NOTE | 2022-08-29 12:02 | RAD REPORT ---
EXAM DESCRIPTION: RAD - Chest Single View - 08/29/2022 11:49 am CLINICAL HISTORY: hypercapni COMPARISON: Chest Single View dated 04/05/2022; Chest Single View dated 04/03/2022; Chest Single View da stuart 01/27/2022; Chest Single View dated 01/25/2022; Thorax Wo Con dated 01/25/2022 FINDINGS: Lines: None. Lungs: Increased prominence of the pulmonary vasculature. Pleural: No significant pleural effusions or pneumothorax. Cardiac: Cardiomegaly. Mediastinum: Within normal limits. Bones: No acute fractures. Other: None IMPRESSION: Similar prominence of the pulmonary interstitium that may reflect chronic interstitial e clarita.
[2022-08-29] MEDS ORDERED: FUROSEMIDE 100 MG/10 ML VIAL IV ONE (12:15)
--- NOTE | 2022-08-29 13:38 | RAD REPORT ---
EXAM DESCRIPTION: CT - [id number] - 08/29/2022 1:21 pm CLINICAL HISTORY: Trauma, head and neck injury. fall COMPARISON: No comparisons TECHNIQUE: Axial 5 mm thick images of the head were obtained. Axial 2 mm thick images of the cervical spine were obtained with sagittal and coronal reconstruction images generated and reviewed. All CT scans are performed using dose optimization technique as appropriate and may include automated exposure control or mA/KV adjustment according to patient size. FINDINGS: CT HEAD WITHOUT CONTRAST: No acute hemorrhage, hydrocephalus or extra-axial collection is identified.No areas of brain edema or midline shift. Age advanced cerebral atrophy. The paranasal sinuses and mastoids are clear.The calvarium is intact. CT CERVICAL SPINE WITHOUT CONTRAST: No fracture or subluxation.No prevertebral soft tissues swelling is identified. Reversal of the cherry l cervical lordosis with varying degrees of bilateral neural foraminal narrowing. Central spinal sten osis is likely mild at C4-5. Anterolisthesis of C3 on C4 and trace retrolisthesis of C4 on C5 presuma lynette related underlying degenerative changes. Carotid artery calcifications. IMPRESSION: No acute intracranial or cervical spine findings.
[2022-08-29 14:18] LABS: SARS-CoV-2 Antigen Rapid Res Negative (Negative)
--- NOTE | 2022-08-29 15:55 | P.HP ---
Certification for Inpatient Patient admitted to: Inpatient Practitioner: I am a practitioner with admitting privileges, knowledge of patient current condition, hospital course, and medical plan of care. Services: Services provided to patient in accordance with Admission requirements found in Title 42 Section 412.3 of the Code of Federal Regulations Patient History Date of Service: 08/29/22 Reason for admission: Altered mental status History of Present Illness: 77-year-old gentleman, assisted resident was transferred from assisted to the emergency department because patient fell. Patient is reported to have been confused today. Per report, he felt while transferring from his wheelchair. No loss of consciousness, did not hit head according to report. Work-up in the emergency department showed respiratory acidosis and CO2 retention. Chest x-ray demonstrated findings suggestive of interstitial edema. Patient placed on BiPAP in the ED and given Lasix. Patient oriented x 2-person and place during my examination in the ED. He is admitted for further management. Allergies caffeine Allergy (Verified 03/12/19 22:27) Anaphylaxis codeine Allergy (Verified 03/12/19 22:27) Anaphylaxis Home Medications: ALPRAZolam [Xanax*] 0.5 mg PO TID 04/04/22 Albuterol Sulfate [Albuterol Sulfate 0.083% Neb Soln] 1 amp NEB TIDP PRN 04/04/22 Amiodarone HCl [Cordarone*] 200 mg PO DAILY 04/04/22 Arformoterol Tartrate [Brovana] 1 amp NEB BID 04/04/22 Atorvastatin Calcium [Lipitor*] 10 mg PO BEDTIME 04/04/22 Brimonidine/Dorzolamide/Pf [Brimonidine 0.15%-Dorzolam 2%] 1 gtt EACH EYE BID 04/04/22 Buspirone HCl [Buspar*] 5 mg PO TID 04/04/22 Divalproex [Depakote Sprinkle*] 625 mg PO BID 04/04/22 Docusate [Colace Cap*] 200 mg PO BID 04/04/22 Doxepin HCl [Sinequan*] 25 mg PO BEDTIME 04/04/22 Furosemide [Lasix*] 40 mg PO DAILY 04/04/22 Insulin Degludec [Tresiba] 55 unit SQ BEDTIME 04/04/22 Levalbuterol HCl [Xopenex] 1 amp NEB TIDP PRN 04/04/22 Levothyroxine [Synthroid*] 0.1 mg PO DAILY 04/04/22 Lisinopril [Zestril] 5 mg PO DAILY 04/04/22 Melatonin 15 mg PO BEDTIME 04/04/22 Memantine HCl [Namenda*] 10 mg PO BID 04/04/22 Polyethyl Gly 3350 [Glycolax*] 17 g PO DAILYPRN PRN 04/04/22 Potassium Oral Tab [Klor-Con 10 mEq Tab*] 20 meq PO DAILY 04/04/22 Rivaroxaban [Xarelto] 20 mg PO DAILY 04/04/22 Sitagliptin Phosphate [Januvia] 100 mg PO DAILY 04/04/22 Timolol 0.5% Opth [Timoptic 0.5% Opth*] 1 gtt EACH EYE BID 04/04/22 Tramadol HCl [Ultram] 50 mg PO Q6HP PRN 04/04/22 Venlafaxine HCl 75 mg PO BID 04/04/22 Zinc 50 mg PO DAILY 04/04/22 acetaZOLAMIDE [Acetazolamide] 250 mg PO DAILY 04/04/22 carvediloL [Coreg*] 12.5 mg PO BID 04/04/22 cloNIDine HCL [Clonidine HCl] 0.1 mg PO BID 04/04/22 guaiFENesin [Guaifenesin] 10 ml PO Q6HP PRN 04/04/22 predniSONE [Prednisone*] 20 mg PO SEECOM 7 Days #10 tab 04/05/22 - Past Medical/Surgical History Diabetic: Yes -: Severe COPD, Pt has a BIPAP -: DM NIDDM -: HTN -: High cholesterol -: Bipolar -: Chronic diastolic congestive heart failure -: Heart stents Psychosocial/ Personal History: [facility] resident - Family History Mother -: Stroke Notes: Stroke - Social History Alcohol use: No CD- Drugs: No Caffeine use: Yes Review of Systems Other: He denied any chest pain, he denies shortness of breath, he denied any nausea vomiting or diarrhea. Except as documented, all other systems reviewed and negative. Physical Examination - Physical Exam General: In no apparent distress, Oriented x2, Obese HEENT: PERRLA, Mucous membr. moist/pink, Sclerae nonicteric Neck: Supple, JVD not distended Respiratory: Clear to auscultation bilaterally, Diminished (Bilateral) Cardiovascular: Regular rate/rhythm, Normal S1 S2, Edema (Bilateral lower extremities) Capillary refill: <2 Seconds Gastrointestinal: Normal bowel sounds, Soft and benign, Non-distended, No tenderness Musculoskeletal: No erythema, No tenderness Integumentary: No rashes, No cyanosis Neurological: Normal speech, Normal strength at 5/5 x4 extr, Cranial nerves 3-12 intact Lymphatics: No axilla or inguinal lymphadenopathy - Studies Laboratory Data (last 24 hrs) 08/29/22 11:10: Sodium 136, Potassium 4.2, BUN 29 H, Creatinine 1.74 H, Glucose 130 H, Magnesium 2.3, Total Bilirubin 0.3, AST 19, ALT 14 L, Alkaline Phosphatase 53 08/29/22 11:10: WBC 6.10, Hgb 10.2 L, Hct 31.5 L, Plt Count 159 Assessment and Plan - Problems (Diagnosis) (1) Acute on chronic diastolic (congestive) heart failure Current Visit: No Status: Acute (2) Acute respiratory failure with hypoxia and hypercapnia Current Visit: No Status: Acute (3) COPD exacerbation Current Visit: No Status: Acute (4) Diabetes mellitus Current Visit: No Status: Acute (5) Metabolic encephalopathy Current Visit: No Status: Acute (6) HTN (hypertension) Current Visit: No Status: Chronic Qualifiers: Hypertension type: essential hypertension Qualified Code(s): I10 - Essential (primary) hypertension - Plan Patient with recurrent hospitalization for CO2 retention. Does report patient has been noncompliant with with his CPAP use. Admit patient to the medical floor Continue BiPAP started in the ED IV Lasix for CHF exacerbation. Scheduled bronchodilators and IV steroid. Consult to pulmonary. Monitor intake and output Insulin sliding scale for glucose management Resume home insulin regimen. Diet as tolerated. Reconcile and continue home medications. - Advance Directives Does patient have a Living Will: No Does patient have a Durable POA for Healthcare: Yes
[2022-08-29] MEDS ORDERED: ONDANSETRON 4 MG/2 ML VIAL IV PRN (16:17)
[2022-08-29] MEDS ORDERED: ACETAMINOPHEN 500 MG TAB PO PRN (16:17)
[2022-08-29] MEDS: INSULIN -REGULAR HUMAN 50 UNIT/0.5 ML ML SQ SCH ×2 (16:30→21:00)
[2022-08-29] MEDS ORDERED: HEPARIN 5000 UNIT/ML 1 ML VIAL SQ SCH (17:00)
[2022-08-29] MEDS: IPRATROPIUM BROM 0.5MG/2.5ML NEB SCH (20:00)
[2022-08-29] MEDS: ALBUTEROL 2.5 MG/3 ML NEB SOL NEB SCH (20:00)
[2022-08-29 23:32] VITALS: BMI 36.4
[2022-08-30] MEDS ORDERED: guaiFENesin 100 MG/5 ML UCUP PO PRN (00:13)
[2022-08-30] MEDS ORDERED: TRAMADOL HCL 50 MG TAB PO PRN (00:13)
[2022-08-30] MEDS: IPRATROPIUM BROM 0.5MG/2.5ML NEB SCH ×2 (02:00→08:00)
[2022-08-30] MEDS: ALBUTEROL 2.5 MG/3 ML NEB SOL NEB SCH ×2 (02:00→08:00)
[2022-08-30 03:22] VITALS: O2SAT 98
[2022-08-30 03:59] LABS: Absolute Lymphocytes (CBC) 1.1 K/uL (0.7-4.9); Hematocrit 30.3 % (39.6-49.0); Lymphocytes % 18.2 % (15.3-44.8); MCV 90.1 fL (80-100); MPV 8.6 fL (7.6-11.3); RBC Red Blood Cell Count 3.37 M/uL (4.33-5.43)
[2022-08-30 04:24] LABS: Magnesium 2.3 mg/dL (1.6-2.4); Potassium 3.9 mmol/L (3.5-5.1)
[2022-08-30 04:26] LABS: Thyroid Stimulating Hormone 4.82 uIU/mL (0.358-3.740)
[2022-08-30] MEDS: INSULIN -REGULAR HUMAN 50 UNIT/0.5 ML ML SQ SCH ×2 (07:30→11:30)
[2022-08-30 08:15] VITALS: TEMP 97.3
[2022-08-30] MEDS ORDERED: PNEUMOCOCCAL VACCINE 0.5 ML IMVAC ONE (09:00)
[2022-08-30] MEDS ORDERED: VENLAFAXINE HCL 75 MG TABLET PO SCH ×2 (09:00)
[2022-08-30] MEDS ORDERED: lisinopriL 5 MG TAB PO SCH (09:00)
[2022-08-30] MEDS ORDERED: ALPRAZOLAM 0.5 MG TABLET PO SCH (09:00)
[2022-08-30] MEDS ORDERED: LEVOTHYROXINE SOD 0.1 MG TAB PO SCH (09:00)
[2022-08-30] MEDS ORDERED: cloNIDine HCL 0.1 MG TAB PO SCH (09:00)
[2022-08-30] MEDS ORDERED: ALPRAZOLAM 0.25 MG TABLET PO SCH (09:00)
[2022-08-30] MEDS ORDERED: MEMANTINE HCL 10 MG TABLET PO SCH ×2 (09:00)
[2022-08-30] MEDS ORDERED: POTASSIUM CL SA 10 MEQ TAB PO SCH (09:00)
[2022-08-30] MEDS ORDERED: acetaZOLAMIDE 250 MG TAB PO SCH (09:00)
[2022-08-30] MEDS ORDERED: HOME MED 1 EA UNK (Sitagliptin Phosphate [Januvia] 50 MG Tablet) PO SCH (09:00)
[2022-08-30] MEDS ORDERED: TIMOLOL MALEATE 0.5% OPTH 5 ML BTL EACH EYE SCH (09:00)
[2022-08-30] MEDS ORDERED: RIVAROXABAN 20 MG TABLET PO SCH (09:00)
[2022-08-30] MEDS ORDERED: carvediloL 12.5 MG TAB PO SCH (09:00)
[2022-08-30] MEDS ORDERED: BUSPIRONE HCL 5 MG TABLET PO SCH ×2 (09:00)
[2022-08-30] MEDS ORDERED: FUROSEMIDE 40 MG TABLET PO SCH (09:00)
[2022-08-30] MEDS ORDERED: DIVALPROEX NA 125 MG CAP PO SCH ×2 (09:00)
[2022-08-30] MEDS ORDERED: AMIODARONE HCL 200 MG TAB PO SCH (09:00)
[2022-08-30] MEDS ORDERED: DOCUSATE NA 100 MG CAP PO SCH ×2 (09:00)
--- NOTE | 2022-08-30 11:03 | P.DS ---
Admission Date: 08/29/22 Discharge Date: 08/30/22 Disposition: TRANSFER TO [facility] Discharge Condition: FAIR Reason for Admission: Altered mental status - Problems (1) Acute on chronic diastolic (congestive) heart failure Current Visit: No Status: Acute (2) Acute respiratory failure with hypoxia and hypercapnia Current Visit: No Status: Acute (3) COPD exacerbation Current Visit: No Status: Acute (4) Diabetes mellitus Current Visit: No Status: Acute (5) Metabolic encephalopathy Current Visit: No Status: Acute (6) HTN (hypertension) Current Visit: No Status: Chronic Qualifiers: Hypertension type: essential hypertension Brief History of Present Illness: 77-year-old gentleman, custodial resident was transferred from custodial to the emergency department because patient fell. Patient is reported to have been confused today. Per report, he felt while transferring from his wheelchair. No loss of consciousness, did not hit head according to report. Work-up in the emergency department showed respiratory acidosis and CO2 retention. Chest x-ray demonstrated findings suggestive of interstitial edema. He denied any pain from the fall. Head CT and cervical CT images showed no fracture. Patient placed on BiPAP in the ED and given Lasix. Patient oriented x 2 (person and place) during examination in the ED. He was hospitalized for further management. Hospital Course: Patient placed under observation on the medical floor and treated for COPD exacerbation with BiPAP and scheduled bronchodilators. Chest x-ray demonstrated chronic interstitial edema. Patient was treated with his home dose Lasix and Diamox. His mental status improved rapidly to baseline, BiPAP weaned off to oxygen by nasal cannula, patient tolerated diet and evaluated by PT. patient at baseline pivot transfers to wheelchair or transfer to wheelchair with assistance. Patient has improved to baseline and deemed stable for discharge. Vital Signs/Physical Exam: Temp Pulse Resp BP Pulse Ox 97.3 F 87 16 131/74 96 08/30/22 08:00 08/30/22 08:00 08/30/22 08:00 08/30/22 08:00 08/30/22 08:00 General: Alert, Oriented x3 HEENT: Mucous membr. moist/pink Neck: JVD not distended Respiratory: Normal air movement, Other (Mild scattered rhonchi) Cardiovascular: Normal S1 S2, Irregular heart rate/rhythm Gastrointestinal: Soft and benign, Non-distended Musculoskeletal: No swelling Neurological: Other (No focal motor deficit) Laboratory Data at Discharge: WBC 5.90 K/uL (4.3-10.9) 08/30/22 03:40 Hgb 10.2 g/dL (13.6-17.9) L 08/30/22 03:40 Hct 30.3 % (39.6-49.0) L 08/30/22 03:40 Plt Count 152 K/uL (152-406) 08/30/22 03:40 Sodium 138 mmol/L (136-145) 08/30/22 03:40 Potassium 3.9 mmol/L (3.5-5.1) 08/30/22 03:40 BUN 31 mg/dL (7-18) H 08/30/22 03:40 Creatinine 1.60 mg/dL (0.70-1.30) H 08/30/22 03:40 Glucose 115 mg/dL (74-106) H 08/30/22 03:40 Phosphorus 4.0 mg/dL (2.5-4.9) 08/30/22 03:40 Magnesium 2.3 mg/dL (1.6-2.4) 08/30/22 03:40 Total Bilirubin 0.3 mg/dL (0.2-1.0) 08/29/22 11:10 AST 19 U/L (15-37) 08/29/22 11:10 ALT 14 U/L (16-61) L 08/29/22 11:10 Alkaline Phosphatase 53 U/L (45-117) 08/29/22 11:10 Home Medications: ALPRAZolam [Xanax*] 0.25 mg PO BID 04/04/22 Amiodarone HCl [Cordarone*] 200 mg PO DAILY 04/04/22 Arformoterol Tartrate [Brovana] 1 amp NEB BID 04/04/22 Atorvastatin Calcium [Lipitor*] 10 mg PO BEDTIME 04/04/22 Brimonidine/Dorzolamide/Pf [Brimonidine 0.15%-Dorzolam 2%] 1 gtt EACH EYE BID 04/04/22 Buspirone HCl [Buspar*] 5 mg PO TID 04/04/22 Divalproex [Depakote Sprinkle*] 625 mg PO BID 04/04/22 Docusate [Colace Cap*] 200 mg PO BID 04/04/22 Doxepin HCl [Sinequan*] 25 mg PO BEDTIME 04/04/22 Furosemide [Lasix*] 40 mg PO DAILY 04/04/22 Insulin Degludec [Tresiba] 55 unit SQ BEDTIME 04/04/22 Levalbuterol HCl [Xopenex] 1 amp NEB TIDP PRN 04/04/22 Levothyroxine [Synthroid*] 0.1 mg PO DAILY 04/04/22 Lisinopril [Zestril] 5 mg PO DAILY 04/04/22 Melatonin 15 mg PO BEDTIME 04/04/22 Memantine HCl [Namenda*] 10 mg PO BID 04/04/22 Polyethyl Gly 3350 [Glycolax*] 17 g PO DAILYPRN PRN 04/04/22 Potassium Oral Tab [Klor-Con 10 mEq Tab*] 20 meq PO DAILY 04/04/22 Rivaroxaban [Xarelto] 20 mg PO DAILY 04/04/22 Sitagliptin Phosphate [Januvia] 100 mg PO DAILY 04/04/22 Timolol 0.5% Opth [Timoptic 0.5% Opth*] 1 gtt EACH EYE BID 04/04/22 Tramadol HCl [Ultram] 50 mg PO Q6HP PRN 04/04/22 Venlafaxine HCl 75 mg PO BID 04/04/22 Zinc 50 mg PO DAILY 04/04/22 acetaZOLAMIDE [Acetazolamide] 250 mg PO DAILY 04/04/22 carvediloL [Coreg*] 12.5 mg PO BID 04/04/22 cloNIDine HCL [Clonidine HCl] 0.1 mg PO BID 04/04/22 guaiFENesin [Guaifenesin] 10 ml PO Q6HP PRN 04/04/22 Ipratropium Neb [Atrovent*] 0.5 mg NEB Q6INYOO amp 08/30/22 predniSONE [Prednisone*] 20 mg PO SEECOM #5 tab 08/30/22 New Medications: predniSONE [Prednisone*] 20 mg PO SEECOM #5 tab Diet: ADA Activity: Fall precautions
[2022-08-30 12:13] VITALS: BP 125/58
[2022-08-30] MEDS ORDERED: ATORVASTATIN 10 MG TAB PO SCH (21:00)
[2022-08-30] MEDS ORDERED: INSULIN GLARGINE 100 UNIT/ML SQ SCH (21:00)
[2022-08-30] MEDS ORDERED: MELATONIN 5 MG TABLET PO SCH (21:00)
[2022-08-30] MEDS ORDERED: DOXEPIN HCL 25 MG CAP PO SCH (21:00)
[2022-08-30] MEDS ORDERED: HOME MED 1 EA UNK (Insulin Degludec [Tresiba] 100 UNIT/ML Vial) SQ SCH (21:00)
--- NOTE | 2022-09-04 16:12 | EKG ---
Test Date: 2022-08-29 Test Time: 11:11:21 [employer] Communities Designer: HB MEASUREMENT RESULTS: Intervals: Rate: 74 [place]: QRSD: 94 QT: 426 QTc: 472 [place]: P: [place]: QRS: 72 T: 52 INTERPRETIVE STATEMENTS: Atrial fibrillation Abnormal ECG Compared to ECG 04/03/2022 19:44:53 Myocardial infarct finding no longer present Electronically Signed On 09-04-22 16:08:24 RETAIL HELPER by Cristian Avina
== END 2022-08-30 14:01 | DRG 189 ==
LOC: ER 09:33 → 2ND 19:50
PROVIDERS: ADMIT Internal Medicine; ATTEND Internal Medicine
PROC: 5A09357 Assistance with Respiratory Ventilation, Less than 24 Consecutive Hours, Continuous Positive Airway Pressure (ICD-10-PCS; principal; 2022-08-29)
DX: J96.22 Acute and chronic respiratory failure with hypercapnia (principal); I50.33 Acute on chronic diastolic (congestive) heart failure; G93.41 Metabolic encephalopathy; J44.1 Chronic obstructive pulmonary disease with (acute) exacerbation; E87.29 Other acidosis; J96.02 Acute respiratory failure with hypercapnia; J96.21 Acute and chronic respiratory failure with hypoxia; I11.0 Hypertensive heart disease with heart failure; F03.90 Unspecified dementia, unspecified severity, without behavioral disturbance, psychotic disturbance, mood disturbance, and anxiety; F31.9 Bipolar disorder, unspecified; E11.9 Type 2 diabetes mellitus without complications; Z79.4 Long term (current) use of insulin; Z95.5 Presence of coronary angioplasty implant and graft; E66.9 Obesity, unspecified; Z68.36 Body mass index [BMI] 36.0-36.9, adult
CPT/HCPCS: 36415; 70450; 71045; 72125; 80048; 80053; 82805; 82947; 83036; 83735; 83880; 84100; 84439; 84443; 84484; 85025; 87804; 87811; 93005; 94640; 94660; 94760; 96374; 97161; 97530; 99285; J7613; J7644

== ENCOUNTER 2022-09-16 12:37 | Inpatient (IN) | payer OTHER ==
--- OUTSIDE RECORDS SUMMARY | 2022-09-16 12:54 | XMS REPORT | Continuity of Care Document ---
:1945 Author Organization [facility] t Address [address] [place] [address] [address]. [address] [place] [address] Care Team Providers Name Role Phone PCP, PATIENT DOES NOT HAVE A Primary Care Physician UnavailJenna Mckeon Attending Clinician Unavailable ANDREW OVIEDO Attending Clinician Unavailable Andrew Oviedo MD Attending Clinician Erlin Rodriguez MD Attending Clinician Doctor Unassigned, Heeney Attending Clinician Unavailable Giancarlo Murphy Attending Clinician Farhad Rodriguez III Attending Clinician Sofi Rapp Attending Clinician Ant Tracy Jr Attending Clinician Angel Gold Attending Clinician Negro Dawkins Attending Clinician ANDREW OVIEDO Admitting Clinician Unavailable Giancarlo Murphy Admitting Clinician Sofi Rapp Admitting Clinician Dc Maradiaga Admitting Clinician Negro Dawkins Admitting Clinician Payers Payer Name Policy Type Policy Number Effective Date Expiration Date S [facility] [id number] MEDICARE PART A \\T\\ [id number] 2001 B 00:00:00 [place]ID OF [place] [id number] 2012 00:00:00 Problems Condition Condition Condition Status [...] BILATERAL 00:00: Dorinda arenas Active 00 07/27/2016 [facility] WEAKNESS WEAKNESS Diagnosis Active 2016-05-30 Memoria Active 05-30 22:11:00 l 05/30/2016 07:00: Rudy shankar 00 [facility] AMS AMS Diagnosis Active 2015-02-20 Mem oria Active 02-17 16:39:00 l 02/17/2015 00:00: Rudy shankar 00 [facility] SOB SOB Diagnosis Active 2013-092015-05-19 Mem oria Active 0 09:41:00 l 06/08/2014 00:00: Rudy shankar 00 [facility] Diabetes Diabetes Disease Active Unive rs mellitus mellitus 8-10 ity of type 2, type 2, 00:00: [place] controlled controlled 00 [place] dical Branch HLD HLD Disease Active Univers (hyperlipi (hyperlipi 8-10 it y of demia) demia) 00:00: [place] [id number] Medical Branch Essential Essential Disease Active Uni [...] different from the original. ICD10 Diagnosis Term [employer] Utility Hypothyroi Hypothyroi Disease Active U nivers dism dism 8-10 ity of 00:00: [place] 00 Medical Branch Bipolar Bipolar Problem Resolve 2017-06-13 M emoria (qualifier (qualifier d 00:54:32 l value) value) [place] Resolved Problem 06/13/2017 [facility] Acute Acute Problem Resolve 2017-06-13 David cedrick congestive congestive d 00:54:32 l heart heart [place] failure failure (disorder) (disorder) Resolved Problem 06/13/2017 [facility] Hypertensi Hypertens Problem Resolve 2017-06-13 Memoria ve forest d 00:54:32 l disorder, disorder, Herm deepa systemic systemic arterial arterial (disorder) (disorder) Resolved Problem 06/13/2017 [facility] Schizophre Schizophr Problem Resolve 2017-06-13 Memoria boubacar enia d 00:54:32 l (disorder) (disorder) He rmann Resolved Problem 06/13/2017 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 Arthritis Arthritis Problem Active 2017-06-13 Memoria (disorder) (disorder) 00:54:32 l Active [place] Problem 06/13/2017 [facility] Depressive Depressiv Problem Active 2017-06-13 Memoria disorder e disorder 00:54:32 l (disorder) (disorder) He rmann Active Problem 06/13/2017 [facility] Diabetes Diabetes Problem Active 2017-06-13 Memoria mellitus mellitus 00:54:32 l (disorder) (disorder) He rmann Active Problem 06/13/2017 [facility] Gastroesop Gastroeso Problem Active 2017-06-13 Memoria hageal phageal 00:54:32 l reflux reflux [place] disease disease (disorder) (disorder) Active Problem 06/13/2017 [facility] Narcosis Narcosis Problem Active 2017-06-13 Memoria (finding) (finding) 00:54:32 l Active [place] Problem 06/13/2017 [facility] CHR AIRWAY CHR Diagnosis Active 2015-05-19 Memoria OBSTRUCT AIRWAY 09:41:00 l NEC OBSTRUCT [place] NEC Active [facility] ALTERED ALTERED Diagnosis Active 2015-02-20 Memoria MENTAL MENTAL 16:39:00 l STATUS STATUS [place] Active [facility] UNSPECIFIE UNSPECIFI Diagnosis Active 2017-04-03 Memoria D OPEN ED OPEN 16:00:00 l WOUND, WOUND, [place] RIGHT RIGHT FOOT, SUBS FOOT, SUBS Active [facility] NON-PRS NON-PRS Diagnosis Active 2015-09-18 Memoria CHRONIC CHRONIC 16:01:00 l ULCER OTH ULCER OTH Herm deepa PRT RIGHT PRT RIGHT FOOT FOOT Active [facility] TYPE 2 TYPE 2 Diagnosis Active 2015-11-22 Oh moria DIABETES W DIABETES W 08:18:00 l DIABETIC DIABETIC Rudy n PERIPHERAL PERIPHERAL AN AN Active [facility] TINEA TINEA Diagnosis Active 2016-05-07 Mem oria UNGUIUM UNGUIUM 16:57:[address] [facility] TYPE 2 TYPE 2 Diagnosis Active 2016-05-07 Oh moria DIABETES DIABETES 16:57:00 l MELLITUS MELLITUS Rudy n WITH WITH DIABETIC P DIABETIC P Active [facility] NON-PRS NON-PRS Diagnosis Active 2016-01-09 Memoria CHRONIC CHRONIC 15:34:00 l ULCER OTH ULCER OTH Herm deepa PRT R FOOT PRT R FOOT STREET STREET Active [facility] CORNS AND CORNS AND Diagnosis Active 2016-05-07 Memoria CALLOSITIE CALLOSITIE 16:57:00 l S S Active [facility] MUSCLE MUSCLE Diagnosis Active 2016-07-29 Me moria WEAKNESS WEAKNESS 15:57:00 l (GENERALIZ (GENERALIZ [facility] ED) ED) Active [facility] CHOLECYSTI Diagnosis Active 2017-11-11 Memoria TIS, CHOLECYSTI 12:12:00 l UNSPECIFIE WAI Rudy n D UNSPECIFIE D Active [facility] Type 2 Type 2 Problem Active Common diabetes diabetes Spirit mellitus mellitus - [facility] without without St complicati complicati Jade kes on, on, Medical unspecifie unspecifie Ce nter d whether d whether 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 fpc insulin insulin use use Congestive Congestive Problem Active C ommon heart heart Spirit failure, failure, - [facility] unspecifie unspecifie St d HF d HF [facility] chronicity chronicity Me dical , , [place] unspecifie unspecifie d heart d heart failure failure type type Essential Essential Problem Active Com mon (primary) (primary) Spir it hypertensi hypertensi - [facility] on on [place] Depression Depression Problem Active C omjurgen with with Spirit anxiety anxiety - [facility] [place] Acquired Acquired Problem Active Commo n hypothyroi hypothyroi Sp leila dism dism [facility] Bipolar 1 Bipolar 1 Problem Active Com mon disorder, disorder, Spir it depressed, depressed, - [facility] full full St remission remission [facility] Hyperlipid Hyperlipid Problem Active C marlo emia, emia, Spirit unspecifie unspecifie - [facility]I d d St hyperlipid hyperlipid Jade ke emia type emia type [facility] Seasonal Seasonal Problem Active Commo n allergies allergies Spir it - [facility] Chronic Chronic Problem Active Common obstructiv obstructiv Sp leila e e - [facility] pulmonary pulmonary St disease, disease, [facility] unspecifie unspecifie Me dical d COPD d COPD Center type type Type 2 Type 2 Problem Active Common diabetes diabetes Spirit mellitus mellitus - [facility] with foot with foot St ulcer ulcer [facility] Non-pressu Non-pressu Problem Active C marlo re chronic re chronic Sp leila ulcer of ulcer of - [facility] other part other part St of right of right [facility] foot with foot with Medi magda other other Center specified specified severity severity Recurrent Recurrent Problem Active Com mon [place] Spirit while while - [facility] walking walking [place] Chronic Chronic Problem Active Common kidney kidney Spirit disease, disease, - [facility] unspecifie unspecifie St d CKD d CKD [facility] Hypocalcem Hypocalcem Problem Active C ommon ia ia Spirit - [facility] Generalize Generalize Problem Active C ommon d muscle d muscle Spirit weakness weakness - [facility] Generalize Generalize Problem Active C ommon d weakness d weakness Sp leila [facility] 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 - [facility] History of Past Illness Condition Condition Condition Status Onset Resolution Last Treating Co mments Source Name Details Category Date Date Treatment Clinician Date Discharge Discharge Problem 2016-06-02 2016-06-02 Memoria Diagnosis: Diagnosis: 05-30 03:26:48 03:26:48 l Fatigue Fatigue 05:00: [place] 05/30/[address] [place] [address] Discharge Discharge Problem 2016-06-02 2016-06-02 Memoria Diagnosis: Diagnosis: 05-30 03:26:48 03:26:48 l Acute Acute 05:00: [place] renal renal 00 insufficie insufficie ncy ncy 05/30/[address] [place] [address] Discharge Discharge Problem 2016-06-02 2016-06-02 Memoria Diagnosis: Diagnosis: 05-30 03:26:48 03:26:48 l Dehydratio Dehydratio 05:00: He rmann n n 00 05/30/2016 06/02/2016 [facility] Allergies, Adverse Reactions, Alerts Allergy Allergy Status Severity Reaction(s) Onset Inactive Treating Comm ents Source Name Type Date Date Clinician CODEINE DRUG Active Unknown-Cmnt Uni vers INGREDI 05-14 ity of 00:00: [place] 00 Medical Branch Codeine Propensi Active Unknown - Univ ers ty to See comments 05-14 ity of adverse 00:00: [place] reaction 00 Medical s Branch codeine codeine Active Memoria l [place] caffeine caffeine Active Memori a l [place] codeine Adverse Active Info Not Common Reaction Available Spiri t [facility] Social History Social Habit Start Date Stop Date Quantity Comments Source History SDOH University o f Alcohol Frequency [place] M edical [facility] History SDOH University o f Alcohol Std [place] [facility] Drinks Branch History SDOH University o f Alcohol Binge [place] [facility] al Branch History of Chews Tobacco University of tobacco use [place] [facility] Exposure to 2021-12-31 2022-01-10 Not sure [facility] SARS-CoV-2 00:00:00 08:40:00 [facility] (event) Branch Social History 2016-05-30 2016-05-30 Mary colbert 15:36:53 15:36:53 Alcohol intake 2012-12-31 2012-12-31 Current University of 00:00:00 00:00:00 non-drinker of [facility] alcohol Branch (finding) Alcohol Comment 2011-06-28 2011-06-28 quit alcohol Univers ity of 00:00:00 00:00:[address] [facility] Tobacco use and 2011-06-28 2011-06-28 Current user Univers ity of exposure 00:00:00 00:00:[address] [facility] Sex Ass[birth year] At [birth year] Universit y of 00:00:00 00:00:[address] [facility] Smoking Status Start Date Stop Date Source Former smoker 2011-06-28 00:00:00 2011-06-28 00:00:00 [facility] Medications Ordered Filled Start Stop Current Ordering Indication Dosage Frequency Signature Comments Components Source Medication Medication Date Date Medication? Clinician (SIG) Name Name Carvedilol Carvedilol 2018- Yes Jenna 1 tablet Common 9-26 Millender Spirit 00:00: - [facility] [place] Glucometer Glucometer Yes Jenna one strip Common test strips test strips 9-16 Millender using the Spirit 00:00: [facility] Albuterol Albuterol 2017-09 Yes Jenna 3 ml as Common Sulfate Sulfate 2-18 Millender needed Sp leila 00:00: - [facility] [place] fluconazole 2016- Yes 200 mg = 2 Memoria 100 mg oral 0-10 tab, PO, l tablet 21:09: [id number], 0 Padmini nn 00 Refill(s) fluconazole 2016-09 Yes 200 mg = 2 Memoria 100 mg oral 0-10 tab, PO, l tablet 21:09: [id number], 0 Padmini nn 00 Refill(s) Saline 2016-09 No 10 mL, Memoria Flush 0.9% 0-10 Route: l 21:00: IVP, Drug Form: INJ, Dosing Weight 118.682, kg, Q8H, Start date: 06/10/17 16:00:00 CDT, Duration: 30 day, Stop date: 07/10/17 8:00:00 DUSTER TENDER Lidocaine 2016-09 No Notes: Memori a Hydrochlori 0-10 Preservati l de 10 MG/ML 21:00: ve free. He rmann Injectable 00 (Same as: Solution Xylocaine MPF) Saline 2016-09 No 10 mL, Memoria Flush 0.9% 0-10 Route: l 21:00: IVP, Drug [place] 00 Form: INJ, Dosing Weight 118.682, kg, Q8H, Start date: 06/10/17 16:00:00 CDT, Duration: 30 day, Stop date: 07/10/17 8:00:00 DUSTER TENDER Lidocaine 2016-09 No Notes: Memori a Hydrochlori 0-10 Preservati l de 10 MG/ML 21:00: ve free. He rmann Injectable 00 (Same as: Solution Xylocaine MPF) Saline 2016-09 No Notes: Memoria Flush 0.9% 0-10 (Same as: l 20:41: BD [place] 00 Posiflush) Saline 2016-09 No Notes: Memoria Flush 0.9% 0-10 (Same as: l 20:41: BD [place] 00 Posiflush) Lidocaine 2016-09 No 5 mL, Memoria Hydrochlori 0-10 Route: l de 10 MG/ML 19:00: INTRADERM, [place] Injectable 00 Dosing Solution Weight 118.682, kg, ONCALL, Start date: 06/10/17 14:00:00 CDT, Duration: 30 day, Stop date: 07/10/17 12:59:00 DUSTER TENDER BD Normal 2016-09 No Notes: Memori a Saline 0-10 (Same as: l Flush 19:00: BD [place] 00 Posiflush) Lidocaine 2016-09 No 5 mL, Memoria Hydrochlori 0-10 Route: l de 10 MG/ML 19:00: INTRADERM, [place] Injectable 00 Dosing Solution Weight 118.682, kg, ONCALL, Start date: 06/10/17 14:00:00 CDT, Duration: 30 day, Stop date: 07/10/17 12:59:00 DUSTER TENDER BD Normal 2016-09 No Notes: Memori a Saline 0-10 (Same as: l Flush 19:00: BD [place] 00 Posiflush) Saline 2016-09 No Notes: Memoria Flush 0.9% 0-10 (Same as: l 18:26: BD [place] 00 Posiflush) Saline 2016-09 No Notes: Memoria Flush 0.9% 0-10 (Same as: l 18:26: BD [place] 00 Posiflush) Lidocaine 2016-09 No Notes: Memori a Hydrochlori 0-10 Preservati l de 10 MG/ML 18:00: ve free. He rmann Injectable 00 (Same as: Solution Xylocaine MPF) Lidocaine 2016-09 No Notes: Memori a Hydrochlori 0-10 Preservati l de 10 MG/ML 18:00: ve free. He rmann Injectable 00 (Same as: Solution Xylocaine MPF) Saline 2016-09 No Notes: Memoria Flush 0.9% 0-10 (Same as: l 17:59: BD [place] 00 Posiflush) Saline 2016-09 No Notes: Memoria Flush 0.9% 0-10 (Same as: l 17:59: BD [place] 00 Posiflush) Protonix 2016-09 No Notes: Memoria 0-09 Tablet l 21:30: should not [place] 00 be chewed or crushed. (Same as: Protonix) Protonix 2016-09 No Notes: Memoria 0-09 Tablet l 21:30: should not Gm[place]ez 00 be chewed or crushed. (Same as: Protonix) Miralax 2016-09 No Notes: Memoria 0-09 Dissolve l 17:11: in 8 oz of [place] 00 water or juice. (Same as: Miralax) Miralax 2016-09 No Notes: Memoria 0-09 Dissolve l 17:11: in 8 oz of [place] 00 water or juice. (Same as: Miralax) Maalox 2016-09 No Notes: Memoria Advanced 0-07 (aluminum l Regular 02:12: hydroxide- Herm deepa Strength 00 magnesium SUSP hyd-simeth icone 200-200-20 mg/5ml 30 ml ud [place]) Maalox 2016-09 No Notes: Memoria Advanced 0-07 [...] 30 day, Stop date: 07/05/17 9:00:00 CDT Betaxolol 2016-09 No 2 drp, Memori a [...] 3375 mg Product Wasted: ___ mg Zosyn 2016-09 No Notes: Memoria 0-03 (Same as: l 16:00: Zosyn) Dosing based on Piperacill in component MEDICATION WASTE Product Size: 3375 mg Product Wasted: ___ mg Hydralazine 2016-09 No Notes: David cedrick 0-03 (Same as: l 07:17: Apresoline ) Push over 5 minutes Hydralazine 2016-09 No Notes: David cedrick 0-03 (Same as: l 07:17: Apresoline ) Push over 5 minutes Diflucan 2016-09 No Notes: Memoria 0-01 (Same as: l 20:00: Diflucan) [place] 00 Diflucan 2016-09 No Notes: Memoria 0-01 (Same as: l 20:00: Diflucan) [place] Lasix 2016-09 No Notes: Memoria 0-01 (Same as: l 15:04: Lasix) [place] Lasix 2016-09 No Notes: Memoria 0-01 (Same as: l 15:04: Lasix) [place] Diflucan No Notes: Memoria 9-30 (Same as: l 22:00: Diflucan) Do not refrigerat e Diflucan No Notes: Memoria 05-31 (Same as: l 22:00: Diflucan) Do not refrigerat e Flagyl No Notes: Memoria 05-31 (Same as: l 21:00: Flagyl) Avoid alcohol. Flagyl No Notes: Memoria 05-31 (Same as: l 21:00: Flagyl) Avoid alcohol. Lovenox No 30 mg, Memoria 05-30 Route: l 18:00: SUB-Q, Drug form: INJ, [id number], Dosing Weight 118.682, kg, For CrCl <30mL/min, Start date: 05/30/17 13:00:00 CDT, Duration: 30 day, Stop date: 06/28/17 13:00:00 CDT Lovenox No 30 mg, Memoria 05-30 Route: l 18:00: SUB-Q, Drug form: INJ, [id number], Dosing Weight 118.682, kg, For CrCl <30mL/min, Start date: 05/30/17 13:00:00 CDT, Duration: 30 day, Stop date: 06/28/17 13:00:00 CDT Buspirone No Notes: Memori a 05-29 (Same As: l 02:00: BuSpar) Buspirone No Notes: Memori a 05-29 (Same As: l 02:00: BuSpar) Acetaminoph No Notes: Do M emoria en 05-28 not exceed l 05:32: 4 gm/day. (Same as: Tylenol) Acetaminoph No Notes: Do M emoria en 05-28 not exceed l 05:32: 4 gm/day. (Same as: Tylenol) Dulcolax No Notes: Memoria Laxative 05-26 (Same As: l 20:24: Dulcolax, Bisco-Lax) Dulcolax No Notes: Memoria Laxative 05-26 (Same As: l 20:24: Dulcolax, [place] 00 Bisco-Lax) timolol No Notes: Memoria ophthalmic 05-26 (Same As: l 19:00: Timoptic, [place] 00 Betimol) timolol No Notes: Memoria ophthalmic 05-26 (Same As: l 19:00: Timoptic, [place] 00 Betimol) magnesium No Notes: Memori a citrate 05-25 (Same as: l 58.2 MG/ML 18:32: Citrate of H ermann Oral 00 Magnesia) Solution Concentrat ion: 1.745 gm / 30 mL magnesium No Notes: Memori a citrate 24 (Same as: l 58.2 MG/ML 18:32: Citrate of H ermann Oral 00 Magnesia) Solution Concentrat ion: 1.745 gm / 30 mL Albuterol No Notes: Memori a 0.833 MG/ML 05-25 (Same as: l / 16:00: Duoneb) [place] Ipratropium 00 [place] 0.167 MG/ML Inhalant Solution Albuterol No Notes: Memori a 0.833 MG/ML 05-25 (Same as: l / 16:00: Duoneb) [place] Ipratropium 00 [place] 0.167 MG/ML Inhalant Solution Budesonide No Notes: Memor ia 0.25 MG/ML 05-25 (Same As: l Inhalant 12:57: Pulmicort) Her andujar Solution 00 [Pulmicort] Budesonide No Notes: Memor ia 0.25 MG/ML 05-25 (Same As: l Inhalant 12:57: Pulmicort) Her andujar Solution 00 [Pulmicort] Budesonide No Notes: Memor ia 0.25 MG/ML 05-25 (Same As: l Inhalant 01:00: Pulmicort) Her andujar Solution 00 [Pulmicort] Budesonide No Notes: Memor ia 0.25 MG/ML 05-25 (Same As: l Inhalant 01:00: Pulmicort) Her andujar Solution 00 [Pulmicort] Dextrose No 50 mL, Memoria 50% in 05-25 Route: l Water IV 00:24: IVP, Start Her pratima date: 05/24/17 19:24:00 CDT, Stop date: 05/24/17 19:24:00 CDT Dextrose 2017-0 No 50 mL, Memoria 50% in 05-25 Route: l Water IV 00:24: IVP, Start Her andujar date: 05/24/17 19:24:00 CDT, Stop date: 05/24/17 19:24:00 CDT Dextrose 2017-0 No 25 gm, Memoria 05-24 Route: l 23:34: IVPB, [place] ONCE, Dosing Weight 118.682, kg, Start date: 05/24/17 18:34:00 CDT, Stop date: 05/24/17 18:34:00 CDT Dextrose 2017-0 No 25 gm, Memoria 05-24 Route: l 23:34: IVPB, [place] 00 ONCE, Dosing Weight 118.682, kg, Start date: 05/24/17 18:34:00 CDT, Stop date: 05/24/17 18:34:00 CDT Insulin 2017-0 No 15 unit, Memori a regular 05-24 Route: IV, l 23:23: ONCE, [place] 00 Dosing Weight 118.682, kg, Priority: NOW, Start date: 05/24/17 18:23:00 CDT, Stop date: 05/24/17 18:23:00 CDT Insulin 2017-0 No 15 unit, Memori a regular 05-24 Route: IV, l 23:23: ONCE, Dosing Weight 118.682, kg, Priority: NOW, Start date: 05/24/17 18:23:00 CDT, Stop date: 05/24/17 18:23:00 CDT sodium 2017-0 No 1,000 mL, Memori a chloride 05-24 Rate: 75 l 0.9% 1000 17:41: ml/hr, Rudy n ml INJ 00 Infuse 1,000 mL over: 13.3 hr, Route: IV, Dosing Weight 118.682 kg, Total Volume: 1,000, Start date: 05/24/17 12:41:00 CDT, Stop date: 06/23/17 12:40:00 CDT sodium 2017-0 No 1,000 mL, Memori a chloride 05-24 [...] (0.5 mL IM) Shake well before use No Notes: Memoria 9-23 (Same as: l 14:00: Sepuv) omega-3 No Notes: Memoria polyunsatur 05-24 (Same as: l ated fatty 14:00: MaxEPA, Herm deepa acids 00 [place] 3 fish oil ) Non-Formul genaro Drug Vitamin D3 No Notes: Memor ia 05-24 Same as : l 14:00: Vitamin D3 venlafaxine No Notes: David cedrick 05-24 (Same As: l 14:00: Effexor) influenza No Notes: Memori a virus - (Same as: l vaccine, 14:00: Fluzone Rudy n inactivated 00 Quadrivale nt, Fluarix Quadrivale nt) For 3 years of age and older (0.5 mL IM) Shake well before use No Notes: Memoria 9-23 (Same as: l 14:00: Januvia) omega-3 No Notes: Memoria polyunsatur -23 (Same as: l ated fatty 14:00: MaxEPA, Herm deepa acids 00 [place] 3 fish oil ) Non-Formul genaro Drug Vitamin D3 No Notes: Memor ia 05-24 Same as : l 14:00: Vitamin D3 venlafaxine No Notes: David cedrick - (Same As: l 14:00: Effexor) Albuterol No Notes: Memori a 0.833 MG/ML 05-24 (Same as: l / 13:46: Duoneb) [place] Ipratropium 00 [place] 0.167 MG/ML Inhalant Solution [DuoNeb] Albuterol No Notes: Memori a 0.833 MG/ML 05-24 (Same as: l / 13:46: Duoneb) Ipratropium 00 [place] 0.167 MG/ML Inhalant Solution [DuoNeb] tiotropium No Notes: Memor ia 0.018 05-24 (Same As: l MG/ACTUAT 13:00: Spiriva). Her andujar Inhalant 00 Powder [Spiriva] tiotropium No Notes: Memor ia 0.018 05-24 (Same As: l MG/ACTUAT 13:00: Spiriva). Her andujar Inhalant 00 Powder [Spiriva] Thyroxine No Notes: Memori a 05-24 Take 1 l 11:30: hour [place] 00 before or 2 hours after meal; Enteral feeds may interefere with the absorption of this medication .(Same as:Levothr oid, Synthroid) Thyroxine No Notes: Memori a 9-23 Take 1 l 11:30: hour G[place] 00 [...] 6 weeks Insulin No Notes: Memoria Glargine - (Same as: l 100 UNT/ML 02:00: Lantus) Do H ermann Injectable 00 not hold Solution insulin [Lantus] without contacting prescriber WASTE: F/P - Black; E - Municipal Trash Bin "single patient use only" Fenofibrate No Notes: David cedrick 05-24 (Same as: l 02:00: Tricor) Trazodone No Notes: Memori a 05-24 (Same [...] cedrick 05-24 (Same as: l 02:00: Tricor) 24 HR No Notes: Memoria Divalproex 05-24 (Same as: l Sodium 500 02:00: Depakote Her andujar MG Extended 00 ER) Once Release daily Tablet dosing; indicated for migraines. Divalproex sodium extended-r elease tab. Do not chew or crush. "Do Not Crush" Ipratropium No Notes: SEE Memoria 05-24 RT l 00:00: DOCUMENTAT ION (Same as:Atroven t) Ipratropium No Notes: SEE Memoria 05-24 RT l 00:00: DOCUMENTAT ION (Same as:Atroven t) Zosyn + No [...] 30 day, Stop date: 06/22/17 9:00:00 CDT Brimonidine No Notes: David cedrick tartrate 05-23 (Same As: l 1.5 MG/ML 22:00: Alphagan) Her andujar Ophthalmic 00 Solution Betaxolol No 2 drp, Memori a 2.5 MG/ML 05-23 Route: l Ophthalmic 22:00: BOTH EYES, H ermann Suspension 00 BID, Drug [Betoptic form: S] SUSP, Start date: 05/23/17 17:00:00 CDT, Duration: 30 day, Stop date: 06/22/17 9:00:00 CDT Zosyn + No Notes: Memoria sodium 05-23 (Same as: l chloride 22:00: Zosyn) [place] 0.9% INJ 00 Dosing 100 mL based on Piperacill in component MEDICATION WASTE Product Size: 3375 mg Product Wasted: ___ mg Symbicort No Notes: Memori a 160/4.5 05-23 (Same as: l inhalation 21:00: Symbicort) H ermann aerosol 00 WASTE: with Aerosol - adapter Return to Pharmacy Zosyn No 2.25 gm, Memoria 05-23 Route: IV, l 21:00: Q8H, [place] 00 Dosing Weight 109.545, kg, Start date: 05/23/17 16:00:00 CDT, Duration: 30 day, Stop date: 06/22/17 8:00:00 CDT, ABX Indication : Intra-abdo jelly Infection Symbicort No Notes: Memori a 160/4.5 05-23 (Same as: l inhalation 21:00: Symbicort) H erm aerosol WASTE: with Aerosol - adapter Return to Pharmacy Zosyn No 2.25 gm, Memoria 05-23 Route: IV, l 21:00: Q8H, Dosing Weight 109.545, kg, Start date: 05/23/17 16:00:00 CDT, Duration: 30 day, Stop date: 06/22/17 8:00:00 CDT, ABX Indication : Intra-abdo jelly Infection metoprolol No Notes: Memor ia tartrate 05-23 (Same as: l 19:00: Lopressor) metoprolol No Notes: Memor ia tartrate 05-23 [...] ia 05-23 (Same as: l 18:00: Cordarone) Zosyn No 2.25 gm, Memoria 05-23 Route: l 18:00: IVPB, Drug form: PDR/INJ, ABXQ8H, Dosing Weight 118.682, kg, Start date: 05/23/17 13:00:00 CDT, Duration: 10 day, Stop date: 06/02/17 5:00:00 CDT, ABX Indication : Intra-abdo jelly Infection Buspirone No Notes: Memori a 05-23 (Same As: l 18:00: BuSpar) Aspirin No Notes: Do Memor ia 05-23 not crush l 18:00: or chew. [place] 00 (Same As: Ecotrin) Amlodipine No Notes: Memor ia 05-23 (Same as: l 18:00: Norvasc) Amiodarone No Notes: Memor ia 05-23 (Same as: l 18:00: Cordarone) Alprazolam No Notes: Memor ia 05-23 With food l 17:42: or milk [place] 00 (Same as: Xanax) Alprazolam No Notes: Memor ia 05-23 With [...] 30 day, Stop date: 06/22/17 12:39:00 CDT Insulin No 60 units) David cedrick Lispro 05-23 WASTE: F/P l 17:40: - Black; E - [facility] Trash Bin Stable for 28 days at [...] Memoria 05-23 (Same As: l 17:15: Lioresal) Baclofen No Notes: Memoria 05-23 (Same As: l 17:15: Lioresal) Aspirin 81 No 81 mg = 1 Me moria MG Chewable -22 tab, PO, l Tablet 16:29: Daily, [place] 00 tab, 0 Refill(s) 24 HR Yes 500 mg = 1 Memori a Divalproex 9-22 tab, PO, l Sodium 500 16:29: Bedtime, # H ermann MG Extended 00 30 tab, 0 Release Refill(s) Tablet Aspirin 81 No 81 mg = 1 Me moria MG Chewable 9-22 tab, PO, l Tablet 16:29: Daily, [place] 00 tab, 0 Refill(s) 24 HR Yes 500 mg = 1 Memori a Divalproex 9-22 tab, PO, l Sodium 500 16:29: Bedtime, # H ermann MG Extended 00 30 tab, 0 Release Refill(s) Tablet Zosyn + 2017 No Notes: Memoria sodium 9-22 (Same as: l chloride 16:00: Zosyn) [place] 0.9% INJ 00 Dosing 100 mL based on Piperacill in component MEDICATION WASTE Product Size: 3375 mg Product Wasted: ___ mg Zosyn + 2016- No Notes: Memoria sodium 9-22 (Same as: l chloride 16:00: Zosyn) [place] 0.9% INJ 00 Dosing 100 mL based on Piperacill in component MEDICATION WASTE Product Size: 3375 mg Product Wasted: ___ mg Zosyn + 2016- No Notes: Memoria sodium 9-22 (Same as: l chloride 15:21: Zosyn) [place] 0.9% INJ 00 Dosing 100 mL based on Piperacill in component MEDICATION WASTE Product Size: 3375 mg Product Wasted: ___ mg Zosyn + 2016- No Notes: Memoria sodium 9-22 (Same as: l chloride 15:21: Zosyn) [place] 0.9% INJ 00 Dosing 100 mL based on Piperacill in component MEDICATION WASTE Product Size: 3375 mg Product Wasted: ___ mg Morphine 2017-0 No 2 mg, 1 Memori a 9-22 mL, Route: l 14:57: IVP, Drug [place] form: SOLN, Q4H, Dosing Weight 109.545, kg, PRN Pain Score 7-10, Priority: STAT, Start date: 05/23/17 9:57:00 CDT, Stop date: 06/22/17 9:56:00 CDT Zofran 2016-0 No Notes: Memoria 9-22 (Same as: l 14:57: Zofran) [place] 00 MEDICATION WASTE Product Size: 4 mg Product Wasted: ___ mg Morphine 2017-0 No 2 mg, 1 Memori a 9-22 mL, Route: l 14:57: IVP, Drug [place] 00 form: SOLN, Q4H, Dosing Weight 109.545, kg, PRN Pain Score 7-10, Priority: STAT, Start date: 05/23/17 9:57:00 CDT, Stop date: 06/22/17 9:56:00 CDT Zofran No Notes: Memoria 05-23 (Same as: l 14:57: Zofran) [place] MEDICATION WASTE Product Size: 4 mg Product Wasted: ___ mg Morphine No 4 mg, Memoria 05-23 Route: l 14:27: IVP, ONCE, Dosing Weight 109.545, kg, Priority: STAT, Start date: 05/23/17 9:27:00 CDT, Stop date: 05/23/17 9:27:00 CDT Morphine No 4 mg, Memoria 05-23 Route: l 14:27: IVP, ONCE, Dosing Weight 109.545, kg, Priority: STAT, Start date: 05/23/17 9:27:00 CDT, Stop date: 05/23/17 9:27:00 CDT Omnipaque No 45 Memoria 300 9-22 mL/min, l injectable 11:50: STAT, Rudy n solution 00 Start date: 05/23/17 6:50:00 CDT, Duration: 1 doses or times Omnipaque No 45 Memoria 300 9-22 mL/min, l injectable 11:50: STAT, Rudy n solution 00 Start date: 05/23/17 6:50:00 CDT, Duration: 1 doses or times Morphine No Notes: Memoria - (Same l 11:10: as:MORPhin [place] 00 e Sulfate) Morphine No Notes: Memoria - (Same l 11:10: as:MORPhin [place] 00 e Sulfate) Saline No Notes: Memoria Flush 0.9% 05-23 (Same as: l 11:09: BD [place] 00 Posiflush) Saline No Notes: Memoria Flush 0.9% - (Same as: l 11:09: BD [place] 00 Posiflush) tiotropium 2015-09 No Notes: Memor ia 0.018 09-28 (Same As: l MG/ACTUAT 15:00: Spiriva). Her andujar Inhalant 00 Powder [Spiriva] One-A-Day 2015-09 No 1 tab, Memori a Men 50 Plus 09-28 Route: PO, l 15:00: Dosing Weight 109.545, kg, Daily, Start date: 07/29/16 9:00:00 DUSTER TENDER, Duration: 30 day, Stop date: 08/27/16 9:00:00 DUSTER TENDER Aspirin 2015-09 No 81 mg, Memoria 09-28 Route: PO, l 15:00: Daily, Dosing Weight 109.545, kg, Start date: 07/29/16 9:00:00 DUSTER TENDER, Duration: 30 day, Stop date: 08/27/16 9:00:00 DUSTER TENDER tiotropium 2015-09 No Notes: Memor ia 0.018 09-28 (Same As: l MG/ACTUAT 15:00: Spiriva). Her andujar Inhalant 00 Powder [Spiriva] One-A-2015-09 No 1 tab, Memori a Men 50 Plus 09-28 Route: PO, l 15:00: Dosing Weight 109.545, kg, Daily, Start date: 07/29/16 9:00:00 DUSTER TENDER, Duration: 30 day, Stop date: 08/27/16 9:00:00 DUSTER TENDER Aspirin 2015-09 No 81 mg, Memoria 09-28 Route: PO, l 15:00: Daily, Dosing Weight 109.545, kg, Start date: 07/29/16 9:00:00 DUSTER TENDER, Duration: 30 day, Stop date: 08/27/16 9:00:00 DUSTER TENDER Levemir 2015-09 No Notes: Memoria FlexPen 09-28 [...] Weight 109.545, kg, Start date: 07/28/16 21:00:00 DUSTER TENDER, Duration: 30 day, Stop date: 08/26/16 21:00:00 DUSTER TENDER Levemir 2015-09 No Notes: Memoria FlexPen 09-28 Same as l 03:00: Levemir Do [place] 00 not hold insulin without contacting prescriber WASTE: F/P - Black; E - Municipal Trash Bin "single patient use only" Trazodone 2015-09 No Notes: Memori a 09-28 (Same As: l 03:00: Desyrel) [place] Risperidone 2015-09 No Notes: David cedrick 09-28 (Same as: l 03:00: Risperdal) [place] latanoprost 2015-09 No Notes: David cedrick 0.05 MG/ML 09-28 Keep l Ophthalmic 03:00: refrigerat H ermann Solution 00 ed. (Same as:Xalatan ) Insulin 2015-09 No 30 unit, Memori a Glargine 09-28 Route: l 100 UNT/ML 03:00: SUB-Q, Padmini nn Injectable 00 Drug form: Solution SOLN, [Lantus] Bedtime, Dosing Weight 109.545, kg, Start date: 07/28/16 21:00:00 DUSTER TENDER, Duration: 30 day, Stop date: 08/26/16 21:00:00 DUSTER TENDER Docusate 2015-09 No Notes: Memoria Sodium 100 09-27 (Same as: l MG Oral 23:00: Colace) [place] Capsule 00 (Do Not Crush) Brimonidine 2015-09 No Notes: David cedrick tartrate 09-27 (Same As: l 1.5 MG/ML 23:00: Alphagan) Her andujar Ophthalmic 00 Solution Betaxolol 2015-09 No 2 drp, Memori a 2.5 MG/ML 09-27 Route: l Ophthalmic 23:00: BOTH EYES, H ermann Suspension 00 BID, Drug [Betoptic form: S] SUSP, Start date: 07/28/16 17:00:00 DUSTER TENDER, Duration: 30 day, Stop date: 08/27/16 9:00:00 DUSTER TENDER timolol 2015-09 No Notes: Memoria ophthalmic - (Same As: l 23:00: Timoptic, [place] 00 Betimol) Docusate 2015-09 No Notes: Memoria Sodium 100 09-27 (Same as: l MG Oral 23:00: Colace) [place] Capsule 00 (Do Not Crush) Brimonidine 2015-09 No Notes: David cedrick tartrate 09-27 (Same As: l 1.5 MG/ML 23:00: Alphagan) Her andujar Ophthalmic 00 Solution Betaxolol 2015-09 No 2 drp, Memori a 2.5 MG/ML 09-27 Route: l Ophthalmic 23:00: BOTH EYES, H ermann Suspension 00 BID, Drug [Betoptic form: S] SUSP, Start date: 07/28/16 17:00:00 DUSTER TENDER, Duration: 30 day, Stop date: 08/27/16 9:00:00 DUSTER TENDER timolol 2015-09 No Notes: Memoria ophthalmic 09-27 (Same As: l 23:00: Timoptic, [place] 00 Betimol) Buspirone 2015-09 No Notes: Memori a -27 (Same As: l 21:00: BuSpar) [place] 00 Buspirone 2015-09 No Notes: Memori a 1-27 (Same As: l 21:00: BuSpar) [place] 00 Ipratropium 2015-09 No 500 Memori a 1-27 microgram, l 19:00: Route: [place] 00 NEB, QID, Dosing Weight 109.545, kg, Start date: 07/28/16 13:00:00 DUSTER TENDER, Duration: 30 day, Stop date: 08/27/16 9:00:00 DUSTER TENDER Alprazolam 2015-09 No 0.5 mg, David cedrick 09-27 Route: PO, l 19:00: TID, [place] 00 Dosing Weight 109.545, kg, Start date: 07/28/16 13:00:00 DUSTER TENDER, Duration: 30 day, Stop date: 08/27/16 9:00:00 DUSTER TENDER Ipratropium 2015-09 No 500 Memori a 1-27 microgram, l 19:00: Route: [place] 00 NEB, QID, Dosing Weight 109.545, kg, Start date: 07/28/16 13:00:00 DUSTER TENDER, Duration: 30 day, Stop date: 08/27/16 9:00:00 DUSTER TENDER Alprazolam 2015-09 No 0.5 mg, David cedrick 09-27 Route: PO, l 19:00: TID, [place] 00 Dosing Weight 109.545, kg, Start date: 07/28/16 13:00:00 DUSTER TENDER, Duration: 30 day, Stop date: 08/27/16 9:00:00 DUSTER TENDER Thyroxine 2015-09 No Notes: Memori a -27 Take 1 l 17:30: hour [place] 00 before or 2 hours after meal; Enteral feeds may interefere with the absorption of this medication .(Same as:Levothr oid, Synthroid) Thyroxine 2015-09 No Notes: Memori a -27 Take 1 l 17:30: hour [place] 00 before or 2 hours after meal; [...] ia 09-27 (Same as: l 17:00: Prinivil, [place] 00 Zestril) metoprolol 2015-09 No Notes: Memor ia tartrate 09-27 (Same as: l 17:00: Lopressor) Furosemide 2015-09 No Notes: Memor ia - (Same as: l 17:00: Lasix) May cause GI upset. Give with food or milk. Fenofibrate 2015-09 No Notes: David cedrick 09-27 (Same as: l 17:00: Tricor) Vitamin D3 2015-09 No Notes: Memor ia 09-27 Same as : l 17:00: Vitamin D3 [place] 00 Vitamin C 2015-09 No Notes: Memori a - (Same as: l 17:00: Vitamin C) Amlodipine 2015-09 No Notes: Memor ia 09-27 (Same as: l 17:00: Norvasc) Amiodarone 2015-09 No Notes: Memor ia 09-27 (Same as: l 17:00: Cordarone) venlafaxine 2015-09 No Notes: David cedrick 09-27 (Same As: l 17:00: Effexor) multivitami 2015-09 No Notes: David cedrick n with 09-27 Give with l minerals 17:00: food. [place] 00 (Same As: Stress 600 with Zinc) WASTE: F/P - Black; E - Municipal Trash Bin omega-3 2015-09 No Notes: Memoria polyunsatur 09-27 (Same as: l ated fatty 17:00: Lovaza, Herm deepa acids 00 formally named [place]) "Do Not Crush" Lisinopril 2015-09 No Notes: Memor ia 09-27 (Same as: l 17:00: Prinivil, [place] 00 Zestril) metoprolol 2015-09 No Notes: Memor [...] Vitamin C 2015-09 No Notes: Memori a - (Same as: l 17:00: Vitamin C) Amlodipine 2015-09 No Notes: Memor ia 09-27 (Same as: l 17:00: Norvasc) Amiodarone 2015-09 No Notes: Memor ia 09-27 (Same as: l 17:00: Cordarone) venlafaxine 2015-09 No Notes: David cedrick 09-27 (Same As: l 17:00: Effexor) [place] 00 Symbicort 2015-09 No Notes: Memori a 160/4.5 09-27 (Same as: l inhalation 16:32: Symbicort) H ermann aerosol 00 WASTE: with Aerosol - adapter Return to Pharmacy Symbicort 2015-09 No Notes: Memori a 160/4.5 [...] Syringe 09-27 25 mL, l 16:01: Route: [place] 00 IVP, Drug Form: INJ, Dosing Weight 109.545, kg, PRN, PRN Blood Glucose Results, Start date: 07/28/16 10:01:00 DUSTER TENDER, Duration: 30 day, Stop date: 08/27/16 10:00:00 DUSTER TENDER Glucagon 2015-09 No 1 mg, Memoria 09-27 Route: IM, l 16:01: Drug form: [place] 00 PDR/INJ, PRN, Dosing Weight 109.545, kg, PRN Blood Glucose Results, Start date: 07/28/16 10:01:00 DUSTER TENDER, Duration: 30 day, Stop date: 08/27/16 10:00:00 DUSTER TENDER Insulin, 2015-09 No Notes: Memoria Aspart, 09-27 Roll in l Human 16:01: palms of [place] 00 hands gently; Do not shake vigorously . (Same as: NovoLOG) "single patient use only" WASTE: F/P - Black; E - Municipal Trash Bin Stable for 28 days at room temperatur e. Expires in days from ____Date Dextrose 2015-09 No 12.5 gm, Memor ia 50% Syringe -27 25 mL, l 16:01: Route: [place] 00 IVP, Drug Form: INJ, Dosing Weight 109.545, kg, PRN, PRN Blood Glucose Results, Start date: 07/28/16 10:01:00 DUSTER TENDER, Duration: 30 day, Stop date: 08/27/16 10:00:00 DUSTER TENDER Glucagon 2015-09 No 1 mg, Memoria - Route: IM, l 16:01: Drug form: [place] 00 PDR/INJ, PRN, Dosing Weight 109.545, kg, PRN Blood Glucose Results, Start date: 07/28/16 10:01:00 DUSTER TENDER, Duration: 30 day, Stop date: 08/27/16 10:00:00 DUSTER TENDER Enoxaparin 2015-09 No Notes: Memor ia - (Same as: l 16:00: Lovenox) Enoxaparin 2015-09 No Notes: Memor ia 1- (Same as: l 16:00: Lovenox) Baclofen 2015-09 No Notes: Memoria 1-27 (Same As: l 15:58: Lioresal) Baclofen 2015-09 No Notes: Memoria 1-27 (Same As: l 15:58: Lioresal) Saline 2015-09 No Notes: Memoria Flush 0.9% 1-27 (Same as: l 15:00: BD [place] 00 Posiflush) aspirin 81 2015-09 No Notes: Do Me moria mg tablet, - not crush l enteric 15:00: or chew. Rudy n coated 00 (Same As: Ecotrin) Famotidine 2015-09 No Notes: Memor ia - (Same as: l 15:00: Pepcid) Saline 2015-09 No Notes: Memoria Flush 0.9% 1-27 (Same as: l 15:00: BD [place] 00 Posiflush) aspirin 81 2015-09 No Notes: Do Me moria mg tablet, 1-27 not crush l enteric 15:00: or chew. Rudy n coated 00 (Same As: Ecotrin) Famotidine 2015-09 No Notes: Memor ia - (Same as: l 15:00: Pepcid) [place] 00 Alprazolam 2015-09 No Notes: Memor ia 0.5 MG Oral 1-27 With food l Tablet 14:20: or milk [place] [Xanax] 00 (Same as: Xanax) Alprazolam 2015-09 No Notes: Memor ia 0.5 MG Oral 1-27 With food l Tablet 14:20: or milk [place] [Xanax] 00 (Same as: Xanax) Saline 2015-09 No Notes: Memoria Flush 0.9% 1-27 (Same as: l 07:29: BD [place] 00 Posiflush) Ondansetron 2015-09 No Notes: David cedrick 1-27 (Same as: l 07:29: Zofran) [place] 00 MEDICATION WASTE Product Size: 4 mg Product Wasted: ___ mg Sodium 2015-09 No 1,000 mL, Memori a Chloride 1-27 Rate: 40 l 0.154 07:29: ml/hr, [place] MEQ/ML 00 Infuse Injectable over: 25 Solution hr, Route: IV, Dosing Weight 97.273 kg, Total Volume: 1,000, Start date: 07/28/16 1:29:00 DUSTER TENDER, Stop date: 08/27/16 1:28:00 DUSTER TENDER Saline 2015-09 No Notes: Memoria Flush 0.9% 1-27 (Same as: l 07:29: BD [place] 00 Posiflush) Ondansetron 2015-09 No Notes: David cedrick 1-27 (Same as: l 07:29: Zofran) [place] 00 MEDICATION WASTE Product Size: 4 mg Product Wasted: ___ mg Sodium 2015-09 No 1,000 mL, Memori a Chloride 1-27 Rate: 40 l 0.154 07:29: ml/hr, [place] MEQ/ML 00 Infuse Injectable over: 25 Solution hr, Route: IV, Dosing Weight 97.273 kg, Total Volume: 1,000, Start date: 07/28/16 1:29:00 DUSTER TENDER, Stop date: 08/27/16 1:28:00 DUSTER TENDER Aspirin 2015-09 No Notes: Memoria 1-27 Take with l 05:47: food. [place] 00 Aspirin 2015-09 No Notes: Memoria 1-27 Take with l 05:47: food. [place] 00 Sodium 2015-0 No 1,000 mL, Memori a Chloride 9-29 1,000 l 0.154 15:49: ml/hr, [place] MEQ/ML 00 Infuse Injectable Over: 1 Solution hr, Route: IV, 1,000, Drug form: INJ, ONCE, Priority: STAT, Dosing Weight 97.727 kg, Start date: 05/30/16 10:49:00 CDT, Duration: 1 doses or times, Stop date: 05/30/16 10:49:00 CDT Sodium 2015-0 No 1,000 mL, Memori a Chloride 9-29 1,000 l 0.154 15:49: ml/hr, [place] MEQ/ML 00 Infuse Injectable Over: 1 Solution hr, Route: IV, 1,000, Drug form: INJ, ONCE, Priority: STAT, Dosing Weight 97.727 kg, Start date: 05/30/16 10:49:00 CDT, Duration: 1 doses or times, Stop date: 05/30/16 10:49:00 CDT Fenofibrate No 200 mg, Mem oria 6-20 Route: PO, l 14:00: Daily, [place] 00 Dosing Weight 120, kg, Start date: 02/18/15 9:00:00, Duration: 30 day, Stop date: 03/19/15 9:00:00 pantoprazol 0 No Notes: David cedrick e 6-20 Tablet l 14:00: should not [place] 00 be chewed or crushed. (Same as: Protonix) Fenofibrate No 200 mg, Mem oria 6-20 Route: PO, l 14:00: Daily, [place] 00 Dosing Weight 120, kg, Start date: 02/18/15 9:00:00, Duration: 30 day, Stop date: 03/19/15 9:00:00 pantoprazol 0 No Notes: David cedrick e 6-20 Tablet l 14:00: should not [place] 00 be chewed or crushed. (Same as: Protonix) Thyroxine No Notes: Memori a 6-20 Take 1 l 11:30: hour [place] 00 before or 2 hours after meal; Enteral feeds may interefere with the absorption of this medication .(Same as:Levothr oid, Synthroid) Thyroxine No Notes: Memori a 6-20 Take 1 l 11:30: hour [place] 00 before or 2 hours after meal; Enteral feeds may interefere with the absorption of this medication .(Same as:Levothr oid, Synthroid) Alprazolam No Notes: Memor ia 6-20 With food l 06:01: or milk [place] 00 (Same as: Xanax) Alprazolam No Notes: Memor ia 6-20 With food l 06:01: or milk [place] 00 (Same as: Xanax) TriCor No Notes: Memoria 6-20 (Same as: l 02:00: Tricor) [place] Risperidone No Notes: David cedrick 6-20 (Same as: l 02:00: Risperdal) [place] 00 Lisinopril No Notes: Memor ia 6-20 (Same as: l 02:00: Prinivil, [place] 00 Zestril) latanoprost No Notes: David cedrick 0.05 MG/ML 6-20 Keep l Ophthalmic 02:00: refrigerat H ermann Solution 00 ed. (Same as:Xalatan ) Lantus No 30 unit, Memoria 6-20 Route: l 02:00: SUB-Q, [place] Bedtime, Dosing Weight 120, kg, Start date: 02/17/15 21:00:00, Duration: 30 day, Stop date: 03/18/15 21:00:00 Levemir No Notes: Memoria FlexPen 6-20 Same as l 02:00: Levemir Do [place] 00 not hold insulin without contacting prescriber "single patient use only" Saline No Notes: Memoria Flush 0.9% 6-20 (Same as: l 02:00: BD [place] 00 Posiflush) Docusate No Notes: Memoria 6-20 (Same as: l 02:00: Colace) [place] (Do Not Crush) TriCor No Notes: Memoria 6-20 (Same as: l 02:00: Tricor) [place] Risperidone No Notes: David cedrick 6-20 (Same as: l 02:00: Risperdal) [place] Lisinopril No Notes: Memor ia 6-20 (Same as: l 02:00: Prinivil, [place] 00 Zestril) latanoprost No Notes: David cedrick 0.05 MG/ML 6-20 Keep l Ophthalmic 02:00: refrigerat H ermann Solution ed. (Same as:Xalatan ) Lantus No 30 [...] 6-20 (Same as: l 02:00: BD [place] Posiflush) Docusate No Notes: Memoria 6-20 (Same as: l 02:00: Colace) [place] 00 (Do Not Crush) normal No 1,000 mL, Memori a saline 0.9% 6-20 Rate: 200 l IV 1,000 mL 01:44: ml/hr, Herm deepa Infuse over: 5 hr, Route: IV, Dosing Weight 120 kg, Total Volume: 1,000, Start date: 02/17/15 20:44:00, Duration: 30 day, Stop date: 03/19/15 20:43:00 normal No 1,000 mL, Memori a saline 0.9% 6-20 Rate: 200 l IV 1,000 mL 01:44: ml/hr, Herm deepa Infuse over: 5 hr, Route: IV, Dosing Weight 120 kg, Total Volume: 1,000, Start date: 02/17/15 20:44:00, Duration: 30 day, Stop date: 03/19/15 20:43:00 Symbicort No Notes: Memori a 160/4.5 6-20 (Same as: l inhalation 01:00: Symbicort) H ermann aerosol 00 with adapter Symbicort No Notes: Memori a 160/4.5 6-20 (Same as: l inhalation 01:00: Symbicort) H ermann aerosol 00 with adapter Sodium No 1,000 mL, Memori a Chloride 6-20 1,000 l 0.154 00:00: ml/hr, [place] MEQ/ML 00 Infuse Injectable Over: 1 Solution hr, Route: IV, ONCE, Priority: STAT, Dosing Weight 120 kg, Start date: 02/17/15 19:00:00, Duration: 1 doses or times, Stop date: 02/17/15 19:00:00 Albuterol No Notes: Memori a 0.833 MG/ML 6-20 (Same as: l / :00: Duoneb) [place] Ipratropium 00 [place] 0.167 MG/ML Inhalant Solution Sodium No 1,000 mL, Memori a Chloride 6-20 1,000 l 0.154 00:00: ml/hr, [place] MEQ/ML 00 Infuse Injectable Over: 1 Solution hr, Route: IV, ONCE, Priority: STAT, Dosing Weight 120 kg, Start date: 02/17/15 19:00:00, Duration: 1 doses or times, Stop date: 02/17/15 19:00:00 Albuterol No Notes: Memori a 0.833 MG/ML 6-20 (Same as: l / 00:00: Duoneb) [place] Ipratropium 00 [place] 0.167 MG/ML Inhalant Solution Lactulose No Notes: Memori a 6-19 (Same l 23:00: as:Chronul [place] ac) Lactulose No Notes: Memori a 6-19 (Same l 23:00: as:Chronul [place] ac) Enoxaparin No Notes: Memor ia 6- (Same as: l 22:00: Lovenox) [place] 00 Brimonidine No Notes: David cedirck tartrate -19 (Same as: l 1.5 MG/ML [...] Januvia) docusate No Notes: Memoria sodium 100 6-19 (Same as: l mg oral 22:00: Colace) (Do Not Crush) Enoxaparin No Notes: Memor ia 6-19 (Same as: l 22:00: Lovenox) Brimonidine No Notes: David cedrick tartrate 6-19 (Same as: l 1.5 MG/ML 22:00: Alphagan-P [facility] Ophthalmic ) Solution Betaxolol No Notes: Memori [...] ia 6-19 (Same as: l 22:00: Cordarone) [place] Alprazolam No Notes: Memor ia 6-19 With food l 22:00: or milk Gm[place] (Same as: Xanax) venlafaxine No Notes: David cedrick 6-19 (Same As: l 22:00: Effexor) [place] Januvia No Notes: Memoria 6-19 (Same as: l 22:00: Januvia) [place] docusate No Notes: Memoria sodium 100 6-19 (Same as: l mg oral 22:00: Colace) [place] capsule (Do Not Crush) dexmedetomi No Notes: David cedrick dine 200 6-19 (Same as: l microgram 21:38: Precedex) Her andujar dexmedetomi No Notes: David cedrick dine 200 6-19 (Same as: l microgram 21:38: Precedex) Her andujar potassium No Notes: Memori a phosphate + 6-19 (Same as: l Sodium 21:37: K [place] Chloride 00 Phosphate. 0.9% IV 250 ) 1 mMol mL phoshate has 1.47 mEq potassium Infuse over 4 hours sodium No Special Memoria phosphate + 6-19 Instructio l Sodium 21:37: ns: FOR [place] Chloride ICU USE 0.9% IV 250 ONLY mL potassium No Notes: Memori a chloride -19 (Same as: l 21:37: Potassium [place] 00 Chloride) Calcium No Notes: Memoria Carbonate 6-19 (Same As: l 500 MG 21:37: Tums) [place] Chewable 00 Calcium Tablet Carbonate 500 mg = 200 mg elemental calcium Dose = mg calcium carbonate ( mg elemental calcium) Magnesium No Notes: Memori a Oxide 6-19 (Same as: l 21:37: Mag-Ox [place] 00 400) Magnesium oxide [id number] g elemental magnesium Dose=____m g magnesium oxide (___mg elemental magnesium) Calcium No Special Memoria Gluconate 6-19 Instructio l 21:37: ns: FOR [place] 00 ICU USE ONLY Neutra-Phos No Notes: David cedrick -19 (Same as: l 21:37: Neutra-Bhupinder [place] s) Each 1.25 gm pkt has 250mg phosphorou s. Mix w/2.5oz water and stir. Magnesium No Special Memor ia Sulfate 02-17 Instructio l 21:37: ns: FOR [place] ICU USE ONLY Saline No Notes: Memoria Flush 0.9% 02-17 (Same as: l 21:37: BD Posiflush) Glucose 50 No 1,000 mL, Me moria MG/ML / 02-17 Rate: 125 l Sodium 21:37: ml/hr, [place] Chloride 00 Infuse 0.0769 over: 8 MEQ/ML hr, Route: Injectable IV, Dosing Solution Weight 120 kg, Total Volume: 1,000, Start date: 02/17/15 16:37:00, Duration: 30 day, Stop date: 03/19/15 16:36:00 Albuterol No Notes: Memori a 0.833 MG/ML 02-17 (Same as: l / 21:37: Duoneb) G[place] Ipratropium 00 [place] 0.167 MG/ML Inhalant Solution Bisacodyl No Notes: Memori a -19 (Same As: l 21:37: Dulcolax, Góme[place] 00 Bisco-Lax) Acetaminoph No Notes: Do M emoria en 02-17 not exceed l 21:37: 4 gm/day. Gómez (Same as: Tylenol) potassium No Notes: Memori a phosphate + 02-17 (Same as: l Sodium 21:37: K [place] Chloride Phosphate. 0.9% IV 250 ) 1 mMol mL phoshate has 1.47 mEq potassium Infuse over 4 hours sodium No Special Memoria phosphate + -19 Instructio l Sodium 21:37: ns: FOR [place] Chloride ICU USE 0.9% IV 250 ONLY mL potassium No Notes: Memori a chloride - (Same as: l 21:37: Potassium Chloride) Calcium No Notes: Memoria Carbonate 02-17 (Same As: l 500 MG 21:37: Tums) [place] Chewable 00 Calcium Tablet Carbonate 500 mg = 200 mg elemental calcium Dose = mg calcium carbonate ( mg elemental calcium) Magnesium No Notes: Memori a Oxide 02-17 (Same as: l 21:37: Mag-Ox 400) Magnesium oxide 822dt=300u g elemental magnesium Dose=____m g magnesium oxide (___mg elemental magnesium) Calcium No Special Memoria Gluconate 02-17 Instructio l 21:37: ns: FOR ICU USE ONLY Neutra-Phos No Notes: David [...] as: l / 21:37: Duoneb) Ipratropium 00 [place] 0.167 MG/ML Inhalant Solution Bisacodyl No Notes: Memori a - (Same As: l 21:37: Dulcolax, Bisco-Lax) Acetaminoph No Notes: Do M emoria en 02-17 not exceed l 21:37: 4 gm/day. Gómez (Same as: Tylenol) NovoLOG No Notes: Memoria FlexPen 6-19 Roll in l 21:30: palms of Gó[place] 00 hands gently; Do not shake vigorously . (Same as: NovoLOG) "single patient use only" Stable for 28 days at room temperatur e. Expires in days from ____Date Humalog No 10 unit, Memori a 6-19 Route: l 21:30: SUB-Q, [place] 00 TID-Before Meals, Dosing Weight 120, kg, Start date: 02/17/15 16:30:00, Duration: 30 day, Stop date: 03/19/15 11:30:00 NovoLOG No Notes: Memoria FlexPen 6-19 Roll in l 21:30: palms of [place] 00 hands gently; Do not shake vigorously . (Same as: NovoLOG) "single patient use only" Stable for 28 days at room temperatur e. Expires in days from ____Date Humalog No 10 unit, Memori a 6-19 Route: l 21:30: SUB-Q, [place] 00 TID-Before Meals, Dosing Weight 120, kg, Start date: 02/17/15 16:30:00, Duration: 30 day, Stop date: 03/19/15 11:30:00 metoprolol No Notes: Memor ia tartrate 6-19 (Same as: l 21:00: Lopressor) metoprolol No Notes: Memor ia tartrate -19 (Same as: l 21:00: Lopressor) Lorazepam No Notes: Memori a 6-19 (Same as: l 20:55: Ativan) Lorazepam No Notes: Memori a 6-19 (Same as: l 20:55: Ativan) Sodium No [...] be inserted" (Same as: Hypertonic Saline 3%) Sodium 2015-0 No Notes: Memoria Chloride 3% - "Administe l (Hypertonic 20:52: r by Rudy shankar ) IV 200 mL 00 central venous catheter or a peripheral ly inserted central catheter (PICC) line. 3% Sodium Chloride may be infused via peripheral administra tion into large vein (antecubit al) only in the case of emergency for short term use until a central line can be inserted" (Same as: Hypertonic Saline 3%) normal 2015-0 No 1,000 mL, Memori a saline 0.9% - Rate: 110 l IV 1,000 mL 18:41: ml/hr, Herm deepa 00 Infuse over: 9.1 hr, Route: IV, Dosing Weight 127.273 kg, Total Volume: 1,000, Start date: 02/17/15 13:41:00, Duration: 30 day, Stop date: 03/19/15 13:40:00 normal 2015-0 No 1,000 mL, Memori a saline 0.9% 02-17 Rate: 110 l IV 1,000 mL 18:41: ml/hr, Herm deepa 00 Infuse over: 9.1 hr, Route: IV, Dosing Weight 127.273 kg, Total Volume: 1,000, Start date: 02/17/15 13:41:00, Duration: 30 day, Stop date: 03/19/15 13:40:00 Sodium 2015-0 No 1,000 mL, Memori a Chloride 6-19 1,000 l 0.154 17:06: ml/hr, [place] MEQ/ML 00 Infuse Injectable Over: 1 Solution Hour, Route: IV, ONCE, Priority: STAT, Dosing Weight 127.273 kg, Start date: 02/17/15 12:06:00, Duration: 1 doses or times, Stop date: 02/17/15 12:06:00 Sodium 2015-0 No 1,000 mL, Memori a Chloride 6-19 1,000 l 0.154 17:06: ml/hr, [place] MEQ/ML 00 Infuse Injectable Over: 1 Solution Hour, Route: IV, ONCE, Priority: STAT, Dosing Weight 127.273 kg, Start date: 02/17/15 12:06:00, Duration: 1 doses or times, Stop date: 02/17/15 12:06:00 Keppra 2015-0 No 1,000 mg, Memori a 6-19 100 mL, l 16:07: Route: IV, [place] 00 Drug form: INJ, ONCE, Dosing Weight 127.273, kg, Start date: 02/17/15 11:07:00, Stop date: 02/17/15 11:07:00 Keppra 2015-0 No 1,000 mg, Memori a 6-19 100 mL, l 16:07: Route: IV, Drug form: INJ, ONCE, Dosing Weight 127.273, kg, Start date: 02/17/15 11:07:00, Stop date: 02/17/15 11:07:00 Ativan 2015-0 No 1 mg, Memoria 6-19 Route: l 16:06: IVP, Drug form: INJ, ONCE, Dosing Weight 127.273, kg, Priority: STAT, Start date: 02/17/15 11:06:00, Stop date: 02/17/15 11:06:00 Ativan 2015-0 No 1 mg, Memoria 6-19 Route: l 16:06: IVP, Drug form: INJ, ONCE, Dosing Weight 127.273, kg, Priority: STAT, Start date: 02/17/15 11:06:00, Stop date: 02/17/15 11:06:00 omega-3 Yes 1,000 mg = David cedrick polyunsatur -19 1 cap, PO, l ated fatty 15:49: Daily, 0 Her andujar acids 1000 00 Refill(s) mg oral capsule omega-3 Yes 1,000 mg = David cedrick polyunsatur 6-19 1 cap, PO, l ated fatty 15:49: Daily, 0 Her andujar acids 1000 00 Refill(s) mg oral capsule Vitamin C Yes 1,000 mg = Me moria 500 mg oral 02-17 2 tab, PO, l tablet 15:48: Daily, 0 [place] 00 Refill(s) latanoprost Yes 1 drp, David cedrick 0.05 MG/ML 02-17 BOTH EYES, l Ophthalmic 15:48: Bedtime, 0 [place] Solution 00 Refill(s) Vitamin C Yes 1,000 mg = Me moria 500 mg oral 619 2 tab, PO, l tablet 15:48: Daily, 0 [place] 00 Refill(s) latanoprost Yes 1 drp, David cedrick 0.05 MG/ML 619 BOTH EYES, l Ophthalmic 15:48: Bedtime, 0 [place] Solution 00 Refill(s) Betaxolol Yes 2 drp, Memori a 2.5 MG/ML 619 BOTH EYES, l Ophthalmic 15:47: BID, 0 Padmini nn Suspension 00 Refill(s) [Betoptic S] Brimonidine Yes 1 drp, David cedrick tartrate 6-19 BOTH EYES, l 1.5 MG/ML 15:47: BID, 0 Rudy n Ophthalmic 00 Refill(s) Solution Betaxolol Yes 2 drp, Memori a 2.5 MG/ML 6-19 BOTH EYES, l Ophthalmic 15:47: BID, 0 Padmini nn Suspension 00 Refill(s) [Betoptic S] Brimonidine Yes 1 drp, David cedrick tartrate 6-19 BOTH EYES, l 1.5 MG/ML 15:47: BID, 0 Rudy n Ophthalmic 00 Refill(s) Solution Symbicort Yes 2 puff, Memor ia 160/4.5 6-19 INHALATION l inhalation 15:46: , BID, 0 Her andujar aerosol 00 Refill(s) with adapter Symbicort Yes 2 puff, Memor ia 160/4.5 6-19 INHALATION l inhalation 15:46: , BID, 0 Her andujar aerosol 00 Refill(s) with adapter tiotropium Yes 18 Memoria 0.018 6-19 microgram, l MG/ACTUAT 15:45: INHALATION [place] Inhalant 00 , Daily, 0 Powder Refill(s) [Spiriva] Ipratropium Yes 500 Memori a 6-19 microgram, l 15:45: NEB, QID, [place] 00 0 Refill(s) tiotropium Yes 18 Memoria 0.018 6-19 microgram, l MG/ACTUAT 15:45: INHALATION [place] Inhalant 00 , Daily, 0 Powder Refill(s) [Spiriva] Ipratropium Yes 500 Memori a 6-19 microgram, l 15:45: NEB, QID, [place] 0 Refill(s) Humalog Yes 10 unit, Memori a 6-19 SUB-Q, l 15:44: TID-Before Meals, 0 Refill(s) Lantus Yes 30 unit, Memoria 6-19 SUB-Q, l 15:44: Bedtime, 0 [place] 00 Refill(s) Humalog Yes 10 unit, Memori a 6-19 SUB-Q, l 15:44: TID-Before Meals, 0 Refill(s) Lantus Yes 30 unit, Memoria 6-19 SUB-Q, l 15:44: Bedtime, 0 [place] 00 Refill(s) busPIRone 5 Yes 5 mg = 1 Me moria mg oral 6-19 tab, PO, l tablet 15:43: TID, 0 [place] 00 Refill(s) busPIRone 5 Yes 5 mg = 1 Me moria mg oral 6-19 tab, PO, l tablet 15:43: TID, 0 [place] 00 Refill(s) venlafaxine Yes 75 mg = 1 M emoria 75 mg oral 6-19 tab, PO, l tablet 15:42: Daily, 0 [place] 00 Refill(s) venlafaxine Yes 75 mg = 1 M emoria 75 mg oral 6-19 tab, PO, l tablet 15:42: Daily, 0 [place] 00 Refill(s) Alprazolam No 1 mg, PO, Me moria 6-19 Bedtime, 0 l 15:40: Refill(s) Alprazolam No 1 mg, PO, Me moria 6-19 Bedtime, 0 l 15:40: Refill(s) [place] 00 docusate Yes 200 mg = 2 Mem oria sodium 100 6-19 cap, PO, l mg oral 15:34: BID, 0 [place] Refill(s) docusate Yes 200 mg = 2 Mem oria sodium 100 6-19 cap, PO, l mg oral 15:34: BID, 0 [place] capsule 00 Refill(s) Saline No Notes: Memoria Flush 0.9% 6-19 (Same as: l 14:43: BD [place] 00 Posiflush) Saline No Notes: Memoria Flush 0.9% 6-19 (Same as: l 14:43: BD [place] 00 Posiflush) Naloxone No Notes: Memoria 6-19 Same as l 14:41: Narcan [place] 00 Naloxone No Notes: Memoria 6-19 Same as l 14:41: Narcan [place] 00 Albuterol 2013-09 Yes 3 ml, Memoria 0.833 MG/ML 0-11 INHALATION l / 17:55: , QID, # [place] Ipratropium 00 60 ea, 0 [place] Refill(s) 0.167 MG/ML Inhalant Solution [DuoNeb] {2013-09 Yes Special Memoria (Methylpred 0-11 Instructio l nisolone 4 17:55: ns: Take Her andujar MG Oral 00 with or Tablet without [Medrol]) } food Pack [Medrol Dosepak] Doxycycline 2013-09 Yes 100 mg = 1 Memoria 100 MG Oral 0-11 cap, PO, l Capsule 17:55: [id number], # Herm deepa 00 14 cap, 0 Refill(s) Albuterol 2013-09 Yes 3 ml, Memoria 0.833 MG/ML 0-11 INHALATION l / 17:55: , QID, # [place] Ipratropium 00 60 ea, 0 [place] Refill(s) 0.167 MG/ML Inhalant Solution [DuoNeb] {2013-09 Yes Special Memoria (Methylpred 0-11 Instructio l nisolone 4 17:55: ns: Take Her andujar MG Oral 00 with or Tablet without [Medrol]) } food Pack [Medrol Dosepak] Doxycycline 2013-09 Yes 100 mg = 1 Memoria 100 MG Oral 0-11 cap, PO, l Capsule 17:55: [id number], # Herm deepa 00 14 cap, 0 Refill(s) Prednisone 2013-09 No Notes: Memor ia 0-11 Take with l 14:00: food. [place] 00 Prednisone 2013-09 No Notes: Memor ia 0-11 Take with l 14:00: food. [place] 00 Budesonide 2013-09 No Notes: Memor ia 0.25 MG/ML 0-10 (Same As: l Inhalant 14:28: Pulmicort) Her andujar Solution 00 [Pulmicort] Budesonide 2013-09 No Notes: Memor ia 0.25 MG/ML 0-10 (Same As: l Inhalant 14:28: Pulmicort) Her andujar Solution 00 [Pulmicort] Azithromyci 2013-09 No Notes: David cedrick n 0-10 Same as: l 04:00: Zithromax [place] 00 Azithromyci 2013-09 No Notes: David cedrick n 0-10 Same as: l 04:00: Zithromax Fenofibrate 2013-09 No Notes: David cedrick 0-10 (Same as: l 02:00: Tricor) Fenofibrate 2013-09 No Notes: David cedrick 0-10 (Same as: l 02:00: Tricor) Effexor XR 2013-09 No Notes: Do Me moria 0-09 not open, l 14:00: crush, or chew. (Same As: Effexor XR) One-A-Day 2013-09 No Notes: Memori a Men 50 Plus 0-09 Give with l 14:00: food. (Same As: Stress 600 with Zinc) Influenza 2013-09 No Notes: Memori a Virus 0-09 (Same as: l Vaccine, 14:00: Fluzone Rudy n Inactivated 00 [place]riv[place] A-[place]- nt) (H3N2)-like virus (A-[place]- 6-2006 [facility] X-175C) strain / Influenza Virus Vaccine, Inactivated A-[place]- 59-2007, IVR-148 (H1N1) strain / Influenza Virus Vaccine, Inactivated , B-[place]- -2005-lik Furosemide 2013-09 No Notes: Memor ia 0-09 (Same as: l 14:00: Lasix) May cause GI upset. Give with food or milk. Docusate 2013-09 No Notes: Memoria 0-09 (Same as: l 14:00: Colace) [place] 00 (Do Not Crush) Vitamin D3 2013-09 No Notes: Memor ia 0-09 Same as l 14:00: Vitamin D3 [place] 00 aspirin 2013-09 No Notes: Memoria 0-09 Take with l 14:00: food. [place] 00 Amlodipine 2013-09 No Notes: Memor ia 0-09 (Same as: l 14:00: Norvasc) [place] Amiodarone 2013-09 No Notes: Memor ia 0-09 (Same as: l 14:00: Cordarone) [place] Alprazolam 2013-09 No Notes: Memor ia 0-09 With food l 14:00: or milk [place] 00 (Same as: Xanax) Effexor XR 2013-09 No Notes: Do Me moria 0-09 not open, l 14:00: crush, or [place] 00 chew. (Same As: Effexor XR) One-A-Day 2013-09 No Notes: Memori a Men 50 Plus 0-09 Give with l 14:00: food. [place] 00 (Same As: Stress 600 with Zinc) Influenza 2013-09 No Notes: Memori a Virus 0-09 (Same as: l Vaccine, 14:00: Fluzone Rudy n Inactivated 00 [place] A-[place]- nt) (H3N2)-like virus (A-[place]- [facility] X-175C) strain / Influenza Virus Vaccine, Inactivated A-[place]- , IVR-148 (H1N1) strain / Influenza Virus Vaccine, Inactivated , B--lik Furosemide 2013-09 No Notes: Memor ia 0-09 (Same as: l 14:00: Lasix) May [place] 00 cause GI upset. Give with food or milk. Docusate 2013-09 No Notes: Memoria 0-09 (Same as: l 14:00: Colace) [place] 00 (Do Not Crush) Vitamin D3 2013-09 No Notes: Memor ia 0-09 Same as l 14:00: Vitamin D3 [place] 00 aspirin 2013-09 No Notes: Memoria 0-09 Take with l 14:00: food. [place] Amlodipine 2013-09 No Notes: Memor ia 0-09 (Same as: l 14:00: Norvasc) [place] Amiodarone 2013-09 No Notes: Memor ia 0-09 (Same as: l 14:00: Cordarone) [place] Alprazolam 2013-09 No Notes: Memor ia 0-09 With food l 14:00: or milk [place] 00 (Same as: Xanax) Enoxaparin 2013-09 No Notes: Memor ia 0-09 (Same as: l 13:00: Lovenox) [place] Enoxaparin 2013-09 No Notes: Memor ia 0-09 (Same as: l 13:00: Lovenox) [place] Thyroxine 2013-09 No Notes: Memori a 0-09 Take 1 l 11:30: hour [place] 00 before or 2 hours after meal; Enteral feeds may interefere with the absorption of this medication . (Same as:Levothr oid) Thyroxine 2013-09 No Notes: Memori a 0-09 Take 1 l 11:30: hour [place] 00 before or 2 hours after meal; Enteral feeds may interefere with the absorption of this medication . (Same as:Levothr oid) Albuterol 2013-09 No Notes: Memori a 0.833 MG/ML 0-09 (Same as: l / 08:00: Duoneb) [place] Ipratropium 00 [place] 0.167 MG/ML Inhalant Solution Albuterol 2013-09 No Notes: Memori a 0.833 MG/ML 0-09 (Same as: l / 08:00: Duoneb) [place] Ipratropium 00 [place] 0.167 MG/ML Inhalant Solution methylPREDN 2013-09 No Notes: David cedrick ISolone 0-09 (Same l SODium 05:00: as:Solu-ME Padmini nn SUCCinate 00 DROL, A-Methapre d) Doxycycline 2013-09 No Notes: NO M emoria 0-09 MILK/ANTAC l 05:00: IDS/IRON [place] 00 Take 1 hour before or 2 hours after dairy products methylPREDN 2013-09 No Notes: David cedrick ISolone 0-09 (Same l SODium 05:00: as:Solu-ME Padmini nn SUCCinate 00 DROL, A-Methapre d) Doxycycline 2013-09 No Notes: NO M emoria 0-09 MILK/ANTAC l 05:00: IDS/IRON [place] 00 Take 1 hour before or 2 hours after dairy products Levemir 2013-09 No Notes: Memoria 0-09 Same as l 04:45: Levemir [place] 00 "single patient use only" Levemir 2013-09 No Notes: Memoria 0-09 Same as l 04:45: Levemir [place] 00 "single patient use only" Trazodone 2013-09 No Notes: Memori a 0-09 (Same As: l 04:38: Desyrel) [place] Risperidone 2013-09 No Notes: David cedrick 0-09 (Same as: l 04:38: Risperdal) [place] Trazodone 2013-09 No Notes: Memori a 0-09 (Same As: l 04:38: Desyrel) [place] Risperidone 2013-09 No Notes: David cedrick 0-09 (Same as: l 04:38: Risperdal) [place] metoprolol 2013-09 No Notes: Memor ia tartrate 0-09 (Same as: l 04:37: Lopressor) [place] Lisinopril 2013-09 No Notes: Memor ia 0-09 (Same as: l 04:37: Prinivil, [place] 00 Zestril) metoprolol 2013-09 No Notes: Memor ia tartrate 0-09 (Same as: l 04:37: Lopressor) [place] Lisinopril 2013-09 No Notes: Memor ia 0-09 (Same as: l 04:37: Prinivil, [place] 00 Zestril) Alprazolam 2013-09 No Notes: Memor ia 0-09 With food l 04:35: or milk [place] 00 (Same as: Xanax) Alprazolam 2013-09 No Notes: Memor ia 0-09 With food l 04:35: or milk [place] 00 (Same as: Xanax) Insulin, 2013-09 No Notes: Memoria Aspart, 0-09 Roll in l Human 04:33: palms of [place] 00 hands gently; Do not shake vigorously . (Same as: NovoLOG) "single patient use only" Stable for 28 days at room temperatur e. Expires in days from ____Date Glucagon 2013-09 No 1 mg, Memoria 0-09 Route: IM, l 04:33: Drug form: [place] 00 PDR/INJ, PRN, Dosing Weight 110.966, kg, PRN Blood Glucose Results, Start date: 06/08/14 23:33:00, Duration: 30 day, Stop date: 07/08/14 22:32:00 Dextrose 2013-09 No 25 gm, 50 David cedrick 50% Syringe 0-09 mL, Route: l 04:33: IVP, Drug [place] 00 Form: INJ, Dosing Weight 110.966, kg, PRN, PRN Blood Glucose Results, Start date: 06/08/14 23:33:00, Duration: 30 day, Stop date: 07/08/14 22:32:00 Insulin, 2013-09 No Notes: Memoria Aspart, 0-09 Roll in l Human 04:33: palms of [place] 00 hands gently; Do not shake vigorously . (Same as: NovoLOG) "single patient use only" Stable for 28 days at room temperatur e. Expires in days from ____Date Glucagon 2013-09 No 1 mg, Memoria 0-09 Route: IM, l 04:33: Drug form: [place] 00 PDR/INJ, PRN, Dosing Weight 110.966, kg, PRN Blood Glucose Results, Start date: 06/08/14 23:33:00, Duration: 30 day, Stop date: 07/08/14 22:32:00 Dextrose 2013-09 No 25 gm, 50 David cedrick 50% Syringe 0-09 mL, Route: l 04:33: IVP, Drug [place] 00 Form: INJ, Dosing Weight 110.966, kg, PRN, PRN Blood Glucose Results, Start date: 06/08/14 23:33:00, Duration: 30 day, Stop date: 07/08/14 22:32:00 Baclofen 2013-09 No Notes: Memoria 0-09 (Same As: l 04:31: Lioresal) [place] 00 Baclofen 2013-09 No Notes: Memoria 0-09 (Same As: l 04:31: Lioresal) [place] 00 Albuterol 2013-09 No Notes: SEE Me moria 0.83 MG/ML 0-09 RT l Inhalant 04:20: DOCUMENTAT Her andujar Solution ION Albuterol 2013-09 No Notes: SEE Me moria 0.83 MG/ML 0-09 RT l Inhalant 04:20: DOCUMENTAT Her andujar Solution ION Non-Formula 2013-09 Yes Special Mem oria ry Home 0-09 Instructio l Medication 04:18: ns: Unknown eye drops; [place] [facility] [place] aspirin 2013-09 Yes 81 mg, PO, David cedrick 0-09 Daily l 04:18: Vitamin D3 2013-09 Yes 200 Memoria 0-09 IntlUnit, l 04:18: PO, Daily Non-Formula 2013-09 Yes Special Mem oria ry Home 0-09 Instructio l Medication 04:18: ns: Unknown eye drops; filled at [facility] in [place] aspirin 2013-09 Yes 81 mg, PO, David cedrick 0-09 Daily l 04:18: Vitamin D3 2013-09 Yes 200 Memoria 0-09 IntlUnit, l 04:18: PO, Daily A2013-09 Yes 1 tab, PO, Me moria Men 50 Plus 0-09 Daily l 04:17: 2013-09 Yes 1 tab, PO, Me moria Men 50 Plus 0-09 Daily l 04:17: Docusate 2013-09 Yes 100 mg, Memori a 0-09 PO, Daily l 04:16: Docusate 2013-09 Yes 100 mg, Memori a 0-09 PO, Daily l 04:16: Thyroxine 2013-09 Yes 25 Memoria 0-09 microgram, l 04:15: PO, Daily Sepuvia 2013-09 Yes 50 mg, PO, David cedrick 0-09 Daily l 04:15: Thyroxine 2013-09 Yes 25 Memoria 0-09 microgram, l 04:15: PO, Daily Sepuvia 2013-09 Yes 50 mg, PO, David cedrick 0-09 Daily l 04:15: Fenofibrate 2013-09 Yes 200 mg, Mem oria 0-09 PO, Daily l 04:13: Fenofibrate 2013-09 Yes 200 mg, Mem oria 0-09 PO, Daily l 04:13: Amlodipine 2013-09 Yes 10 mg, PO, M emoria 0-09 Daily l 04:12: Baclofen 2013-09 Yes 10 mg, PO, Mem oria 0-09 Q8H, as l 04:12: needed for muscle spasm Amlodipine 2013-09 Yes 10 mg, PO, M emoria 0-09 Daily l 04:12: Baclofen 2013-09 Yes 10 mg, PO, Mem oria 0-09 Q8H, as l 04:12: needed for muscle spasm Risperidone 2013-09 Yes 2 mg, PO, M emoria 0-09 Bedtime l 04:11: Lisinopril 2013-09 Yes 20 mg, PO, M emoria 0-09 BID l 04:11: Risperidone 2013-09 Yes 2 mg, PO, M emoria 0-09 Bedtime l 04:11: Lisinopril 2013-09 Yes 20 mg, PO, M emoria 0-09 BID l 04:11: Trazodone 2013-09 Yes 50 mg, PO, Me moria 0-09 Bedtime l 04:10: Alprazolam 2013-09 Yes 1 mg, PO, Me moria 0-09 Bedtime l 04:10: Trazodone 2013-09 Yes 50 mg, PO, Me moria 0-09 Bedtime l 04:10: Alprazolam 2013-09 Yes 1 mg, PO, Me moria 0-09 Bedtime l 04:10: Alprazolam 2013-09 Yes 0.5 mg, David cedrick 0-09 PO, TID l 04:09: Furosemide 2013-09 Yes 20 mg, PO, M emoria 0-09 Daily l 04:09: Alprazolam 2013-09 Yes 0.5 mg, David cedrick 0-09 PO, TID l 04:09: Furosemide 2013-09 Yes 20 mg, PO, M emoria 0-09 Daily l 04:09: 00 Zithromax 2013-09 No Notes: Memori a 0-09 Same as: l 03:09: Zithromax [place] 00 Zithromax 2013-09 No Notes: Memori a 0-09 Same as: l 03:09: Zithromax Albuterol 2013-09 No Notes: Memori a 0.833 MG/ML 0-09 (Same as: :00: Duoneb) [place] Ipratropium 00 [place] 0.167 MG/ML Inhalant Solution [DuoNeb] Albuterol 2013-09 No Notes: Memori a 0.833 MG/ML 0-09 (Same as: l :00: Duoneb) Ipratropium 00 [place] 0.167 MG/ML Inhalant Solution [DuoNeb] Saline 2013-09 No Notes: Memoria Flush 0.9% 0-09 (Same as: l 00:26: BD Posiflush) Saline 2013-09 No Notes: Memoria Flush 0.9% 0-09 (Same as: l 00:26: BD [place] 00 Posiflush) magnesium 2012-09 Yes 30mL Take 30 mL Un jewels hydroxide 1-22 by mouth ity of (MILK OF 09:36: daily. [place] MAGNESIA) 18 Medical 400 mg/5 mL [place] suspension insulin 2012-09 Yes 13U inject 13 [...] ity of 0.2 % 09:36: both eyes [place] ophthalmic 18 2 (two) Medica l solution times Branch daily. lisinopril 2012-09 Yes 20mg Take 20 mg U nivers (PRINIVIL,Z 1-22 by mouth ity of ESTRIL) 20 09:36: daily. [place] mg tablet 18 Medical Branch SENNOSIDES 2012-09 Yes Take by [facility] ers (SENOKOT 1-22 mouth. ity of ORAL) 09:36: Indication [place] 18 s: take 2 Medical tabs by Branch mouth at bedtime amLODIPine 2012-09 Yes 10mg Take 10 mg U nivers (NORVASC) -22 by mouth ity of 10 mg 09:36: daily. [place] tablet 18 Medical Branch latanoprost 2012-09 Yes 1[drp] 1 Drop Un jewels (XALATAN) 22 every ity of 0.005 % 09:36: evening. [place] ophthalmic Medical drops Branch risperidone 2012-09 Yes 4mg Take 4 mg U nivers (RISPERDAL) 22 by mouth ity of 3 mg tablet 09:36: at [place] [id number] bedtime. Medical Branch acetaminoph 2012-09 Yes Take by Uni vers en (MAPAP) 22 mouth ity of 325 mg 09:36: every [...] suspension insulin 2012-09 Yes 13U [facility] Units ity of (LANTUS) 09:36: under the [place] 100 unit/mL 18 skin at Medic al injection bedtime. Branch venlafaxine 2012-09 Yes 150mg Take 150 U nivers XR (EFFEXOR 1-22 mg by ity of XR) 150 mg 09:36: mouth [place] 24 hr 18 daily with Medical capsule breakfast. Branch brimonidine 2012-09 Yes 1[drp] Place 1 U nivers (ALPHAGAN) - Drop in ity of 0.2 % 09:36: both eyes [place] ophthalmic 18 2 (two) Medica l solution times [place] daily. lisinopril 2012-09 Yes 20mg Take 20 mg U nivers (PRINIVIL,Z -22 by mouth ity of ESTRIL) 20 09:36: daily. [place] mg tablet 18 Medical Branch SENNOSIDES 2012-09 Yes Take by [facility] ers (SENOKOT - mouth. ity of ORAL) 09:36: Indication [place] [id number] s: take 2 Medical tabs by Branch mouth at bedtime amLODIPine 2012-09 Yes 10mg Take 10 mg U nivers (NORVASC) 09-22 by mouth ity of 10 mg 09:36: daily. [place] tablet Medical Branch latanoprost 2012-09 Yes 1[drp] 1 Drop Un jewels (XALATAN) 09-22 every ity of 0.005 % 09:36: evening. [place] ophthalmic Medical drops Branch risperidone 2012-09 Yes 4mg Take 4 mg U nivers (RISPERDAL) 09-22 by mouth ity of 3 mg tablet 09:36: at [place] [address] bedtime. Medical Branch acetaminoph 2012-09 Yes Take by Uni vers en (MAPAP) - mouth ity of 325 mg 09:36: every 4 [place] tablet 18 (four) Medical hours as Branch needed. ALPRAZolam 2012-09 Yes .5mg Take 0.5 Uni vers (XANAX) 0.5 1-22 mg by ity of mg tablet 09:36: mouth 2 [place] 18 (two) Medical times [place] daily. Also takes one at bedtime multivitami 2012-09 Yes 1{tbl} Take 1 Tab Univers n (TAB A -22 by mouth ity of THIAGO) 09:36: daily. [place] tablet 18 Medical Branch traZODONE 2012-09 Yes 50mg Take 50 mg Un jewels (DESYREL) -22 by mouth ity of 50 mg 09:36: at [place] [address] bedtime. Medical Branch magnesium 2012-09 Yes 30mL Take 30 mL Un jewels hydroxide -22 by mouth ity of (MILK OF 09:36: daily. [place] MAGNESIA) 18 Medical 400 mg/5 mL Branch suspension insulin 2012-09 Yes 13U inject [facility]-22 Units ity of (LANTUS) [...] 18 2 (two) Medica l solution times [place] daily. lisinopril 2012-09 Yes 20mg Take 20 mg U nivers (PRINIVIL,Z -22 by mouth ity of ESTRIL) 20 09:36: daily. [place] mg tablet 18 Medical Branch SENNOSIDES 2012-09 Yes Take by [facility] ers (SENOKOT 1-22 mouth. ity of ORAL) [...] Yes 13U inject 13 Unive rs glargine -22 Units ity of (LANTUS) 09:36: [facility] 18 skin at Medic al injection bedtime. Branch venlafaxine 2012-09 Yes 150mg Take 150 U nivers XR (EFFEXOR 1-22 mg by ity of XR) 150 mg 09:36: mouth [place] 24 hr 18 daily with Medical capsule breakfast. Branch brimonidine 2012-09 Yes 1[drp] Place 1 U nivers (ALPHAGAN) 09-22 Drop in ity of 0.2 % 09:36: both eyes [place] ophthalmic 2 (two) Medica l solution times [place] daily. lisinopril 2012-09 Yes 20mg Take 20 mg U nivers (PRINIVIL,Z 09-22 by mouth ity of ESTRIL) 20 09:36: daily. [place] mg tablet 18 Medical Branch SENNOSIDES 2012-09 Yes Take by [facility] ers (SENOKOT 22 mouth. ity of ORAL) 09:36: Indication [place] [id number] s: take 2 Medical tabs by Branch [...] ity of 3 mg tablet 09:36: at [place] [id number] bedtime. Medical Branch acetaminoph 2012-09 Yes Take [...] at [place] tablet 18 bedtime. Medical Branch Levothyroxi 2012-09 Yes Take by Uni vers ne 1-22 mouth ity of (TIROSINT) 09:36: daily. [address] Cap 17 Medical Branch amiodarone 2012-09 Yes 200mg Take 200 Un jewels (CORDARONE) 1-22 mg by ity of 200 mg 09:36: mouth [place] tablet 17 daily. Medical Branch Levothyroxi 2012-09 Yes Take by Uni vers ne 1-22 mouth ity of (TIROSINT) 09:36: daily. [address] Cap 17 Medical Branch amiodarone 2012-09 Yes [...] ity of (TIROSINT) 09:36: daily. [place] [id number] mcg Cap 17 [facility] amiodarone 2012-09 [...] mouth ity of 00:00: daily. [facility] Lisinopril Lisinopril Yes Jenna 1 tablet Common [facility] [place] Aspirin Aspirin Yes Jenna 1 tablet Comm on [facility] Betaxolol Betaxolol Yes Jenna 1 drop Co mmon HCl HCl [place] into [facility] affected - [facility] [place] Lisinopril Lisinopril Yes Jenna 1 tablet Common [facility] Clonidine Clonidine Yes Jenna TAKE 1 Co mmon HCl HCl [place] TABLET BY Spiri t MOUTH - [facility] TWICE [facility] Atorvastati Atorvastati Yes Jenna TAKE 1 Common n Calcium n Calcium [place] TABLET BY Spirit MOUTH - [facility] EVERY St NIGHT AT [facility] Januvia Januvia Yes Jenna TAKE 1 Common [place] TABLET BY Spiri t MOUTH - [facility] DAILY [place] Venlafaxine Venlafaxine Yes Jenna 1 capsule Common HCl ER HCl ER [place] with food S [facility] Latanoprost Latanoprost Yes Jenna INT 1 GTT Common [place] IN OU QHS. [facility] it [facility] Trazodone Trazodone Yes Jenna TK 1 T PO Common HCl HCl [place] QHS. [facility] BusPIRone BusPIRone Yes Jenna 1 tablet Common HCl HCl [facility] Levothyroxi Levothyroxi Yes Jenna 1 tablet Common ne Sodium ne Sodium [place] on an Spirit empty - [facility] stomach in [facility] Venscfaxine Venlafaxine Yes Jenna TAKE 1 Common HCl HCl [place] TABLET BY Spiri t MOUTH - [facility] EVERY DAY St WITH FOOD. [facility] Furosemide Furosemide Yes Jenna 1 tablet Common [facility] BD Pen BD Pen Yes Jenna INJECT Common Needle Disha Needle Disha Millender USING Spirit U/F U/F INSULIN D. [facility] Divalproex Divalproex Yes Jenna as Co mmon Sodium ER Sodium ER Millender directed [facility] Vitamin C Vitamin C Yes Jenna 1 tablet Common Millender [facility] Docusate Docusate Yes Jenna 2 capsule C ommon Sodium Sodium Millender as needed [facility] Xarelto Xarelto Yes Jenna 20 MG PO Comm on Millender DAILY [facility] [place] Baclofen Baclofen Yes Jenna TK 1 T PO C ommon Millender Q 8 H PRN. Sp[facility] [place] Lasix Lasix Yes Jenna 40 MG PO Common Millender DAILY [facility] [place] Tresiba Tresiba Yes Jenna 70 units Comm on FlexTouch FlexTouch Millender [facility] Amiodarone Amiodarone Yes Jenna TAKE 1 Common HCl HCl Millender TABLET BY Spiri t MOUTH - [facility] EVERY DAY. [place] Risperidone Risperidone Yes Jenna TAKE 3 Common Millender TABLETS BY Spir it MOUTH ONCE - [facility] A DAY. [place] Symbicort Symbicort Yes Jenna inhale 2 Common Millender puffs po Spirit bid. - [facility] [place] Amlodipine Amlodipine Yes Jenna TAKE 1 Common Besylate Besylate Millender TABLET BY [facility] MOUTH - [facility] DAILY [place] Immunizations Ordered Immunization Filled Immunization Date Status Commen ts Source Name Name influenza virus 2017-06-02 Completed [facility] vaccine, inactivated 21:27:00 Herm deepa influenza virus 2017-06-02 Completed [facility] vaccine, inactivated 21:27:00 Herm deepa influenza virus 2014-06-09 Completed [facility] vaccine, inactivated 14:35:00 Herm deepa influenza virus 2014-06-09 Completed [facility] vaccine, inactivated 14:35:00 Herm deepa Vital Signs Vital Name Observation Time Observation Value Comments Source Respitory Rate 2017-06-10 22:17:00 Kelly al [place] Systolic (mm Hg) 2017-06-10 22:17:00 David bernabe [place] Diastolic (mm Hg) 2017-06-10 22:17:00 Mem orial [place] Temperature Oral (F) 2017-06-10 22:17:00 98.2 F [facility] Heart Rate 2017-06-10 22:17:00 [facility] [place] Systolic (mm Hg) 2017-06-10 17:00:00 David rial [place] Diastolic (mm Hg) 2017-06-10 17:00:00 Mem orial [place] Respitory Rate 2017-06-10 17:00:00 Dimpleori al [place] Heart Rate 2017-06-10 17:00:00 [facility] [place] Temperature Oral (F) 2017-06-10 17:00:00 98.3 F [facility] [place] Heart Rate 2017-06-10 12:50:00 [facility] [place] Temperature Oral (F) 2017-06-10 12:50:00 98.2 F [facility] [place] Respitory Rate 2017-06-10 12:50:00 Memori al [place] Systolic (mm Hg) 2017-06-10 12:50:00 David rial [place] Diastolic (mm Hg) 2017-06-10 12:50:00 Mem orial [place] BMI Calculated 2017 16:42:00 Memori al [place] Weight 2017 16:42:00 [facility] [place] Height 2017 16:42:00 185.42 cm [facility] BMI Calculated 2017 15:56:00 Memori al [place] Weight 2017 15:56:00 [facility] [place] Height 2017 15:56:00 185.42 cm [facility] [place] BMI Calculated 2017 10:33:00 Memori al [place] Height 2017 10:33:00 185.42 cm [facility] [place] Weight 2017 10:33:00 [facility] [place] Heart Rate 2016-07-30 18:00:00 [facility] [place] Respitory Rate 2016-07-30 18:00:00 Memori al [place] Systolic (mm Hg) 2016-07-30 18:00:00 David rial [place] Diastolic (mm Hg) 2016-07-30 18:00:00 Mem orial [place] Temperature Oral (F) 2016-07-30 18:00:00 97.5 F [facility] [place] Systolic (mm Hg) 2016-07-30 14:00:00 David rial [place] Diastolic (mm Hg) 2016-07-30 14:00:00 Mem orial [place] Heart Rate 2016-07-30 14:00:00 [facility] [place] Respitory Rate 2016-07-30 14:00:00 Memori al [place] Temperature Oral (F) 2016-07-30 14:00:00 97.5 F [facility] [place] Respitory Rate 2016-07-30 13:39:00 Memori al [place] Temperature Oral (F) 2016-07-30 06:19:00 98.1 F [facility] [place] Heart Rate 2016-07-30 06:19:00 [facility] [place] Systolic (mm Hg) 2016-07-30 06:19:00 David rial [place] Diastolic (mm Hg) 2016-07-30 06:19:00 Mem orial [place] Weight 2016-07-28 14:21:00 [facility] [place] Weight 2016-07-28 09:33:00 [facility] [place] Height 2016-07-28 09:33:00 182.88 cm [facility] [place] BMI Calculated 2016-07-28 09:33:00 Memori al [place] Weight 2016-07-28 02:47:00 [facility] [place] BMI Calculated 2016-07-28 02:47:00 Memori al [place] Height 2016-07-28 02:47:00 180.34 cm [facility] [place] Respitory Rate 2016-05-30 18:30:00 Memori al [place] Systolic (mm Hg) 2016-05-30 18:30:00 David rial [place] Diastolic (mm Hg) 2016-05-30 18:30:00 Mem orial [place] Temperature Oral (F) 2016-05-30 18:30:00 98.6 F [facility] [place] Respitory Rate 2016-05-30 18:00:00 Memori al [place] Systolic (mm Hg) 2016-05-30 18:00:00 David rial [place] Diastolic (mm Hg) 2016-05-30 18:00:00 Mem orial [place] Respitory Rate 2016-05-30 17:30:00 Memori al [place] Systolic (mm Hg) 2016-05-30 17:30:00 David rial [place] Diastolic (mm Hg) 2016-05-30 17:30:00 Mem orial [place] Heart Rate 2016-05-30 15:14:00 [facility] [place] BMI Calculated 2016-05-30 14:36:00 Memori al [place] Weight 2016-05-30 14:36:00 [facility] [place] Heart Rate 2016-05-30 14:36:00 [facility] [place] Height 2016-05-30 14:36:00 182.88 cm [facility] Temperature Oral (F) 2016-05-30 14:36:00 98.7 F [facility] Systolic (mm Hg) 2015-02-19 16:00:00 David rial [place] Diastolic (mm Hg) 2015-02-19 16:00:00 Mem orial [place] Respitory Rate 2015-02-19 16:00:00 Memori al [place] Systolic (mm Hg) 2015-02-19 15:00:00 David rial [place] Diastolic (mm Hg) 2015-02-19 15:00:00 Mem orial [place] Respitory Rate 2015-02-19 15:00:00 Memori al [place] Respitory Rate 2015-02-19 14:00:00 Memori al [place] Systolic (mm Hg) 2015-02-19 14:00:00 David rial [place] Diastolic (mm Hg) 2015-02-19 14:00:00 Mem orial [place] Temperature Oral (F) 2015-02-18 22:07:00 97.7 F [facility] [place] Temperature Oral (F) 2015-02-18 16:51:00 98.6 F [facility] [place] Weight 2015-02-18 15:03:00 [facility] [place] Temperature Oral (F) 2015-02-18 12:48:00 98.5 F [facility] [place] Heart Rate 2015-02-17 18:50:00 [facility] [place] Height 2015-02-17 18:41:00 185.42 cm [facility] [place] Weight 2015-02-17 18:41:00 [facility] [place] BMI Calculated 2015-02-17 18:41:00 Memori al [place] Heart Rate 2015-02-17 17:52:00 [facility] [place] Heart Rate 2015-02-17 17:34:00 [facility] [place] Weight 2015-02-17 14:33:00 [facility] [place] BMI Calculated 2015-02-17 14:33:00 Memori al [place] Height 2015-02-17 14:33:00 185.42 cm [facility] Diastolic (mm Hg) 2014-06-11 17:24:00 Mem orial [place] Systolic (mm Hg) 2014-06-11 17:24:00 David rial [place] Respitory Rate 2014-06-11 17:24:00 Memori al [place] Heart Rate 2014-06-11 17:24:00 [facility] [place] Temperature Oral (F) 2014-06-11 17:24:00 97.4 F [facility] Respitory Rate 2014-06-11 12:27:00 Memori al [place] Heart Rate 2014-06-11 12:26:00 [facility] [place] Temperature Oral (F) 2014-06-11 12:26:00 98.5 F [facility] [place] Systolic (mm Hg) 2014-06-11 12:26:00 David rial [place] Diastolic (mm Hg) 2014-06-11 12:26:00 Mem orial [place] Respitory Rate 2014-06-11 12:26:00 Memori al [place] Systolic (mm Hg) 2014-06-11 05:07:00 David rial [place] Diastolic (mm Hg) 2014-06-11 05:07:00 Mem orial [place] Temperature Oral (F) 2014-06-11 05:07:00 98.4 F [facility] [place] Heart Rate 2014-06-11 05:07:00 [facility] [place] BMI Calculated 2014-06-09 05:37:00 Memori al [place] Weight 2014-06-09 05:37:00 [facility] [place] Height 2014-06-09 05:37:00 185.42 cm [facility] Height 2014-06-09 00:05:00 185.42 cm [facility] Weight 2014-06-09 00:05:00 [facility] BMI Calculated 2014-06-09 00:05:00 Memori al [place] Procedures Procedure Date / Time Performed Performing Clinician Sour e CT LUMBAR SPINE WO 2022-01-14 14:48:02 Andrew Oviedo [facility] CONSENT/REFUSAL FOR 2022-01-14 14:08:22 Doctor Unassigned, No [facility] DIAGNOSIS AND [facility] Medical Branch TREATMENT ASSIGNMENT OF BENEFITS 2022-01-14 14:07:33 Doctor Unassigned, No [facility] XR BONE SURVEY LTD 2021-12-28 15:13:00 Erlin Rodriguez [facility] ASSIGNMENT OF BENEFITS 2021-12-28 13:11:23 Doctor Unassigned, No [facility] Aortic aneurysm repair [facility] [place] Encounters Start End Encounter Admission Attending Care Care Encounter Source Date/Time Date/Time Type Type Clinicians Facility Department ID 2021-11-30 [facility] [id number] [place] 15:40:57 [id number] Count includes the [facility] 2021-11-28 [facility] [id number] [place] 14:03:42 [id number] Count includes the [facility] 2021-09-26 Outpatient Esteban STLMGRACY STLMLC [id number] Common 10:59:02 Jenna [id number] [facility] 2022-01-14 2022-01-[address] [facility] [id number] Univers 09:07:59 23:59:00 ANDREW ity [facility] 2022-01-14 2022-01-14 [facility] [id number] Univers 09:07:59 23:59:00 Encounter Andrew Carpenter [place] [id number] [id number] [id number] [facility] magda 801 Branch 2021-12-28 2021-12-28 [facility] [id number] Univers 09:51:42 23:59:00 Encounter Erlin [place] [id number] [id number] [id number] [facility] magda 807 Branch 2021-12-28 2021-12-28 [facility] [id number] Univers 08:13:17 09:50:00 Encounter Andrew Carpenter [place] [id number] [id number] [id number] [facility] magda 804 Branch 2021-12-28 2021-12-[address] [facility] [id number] Univers 00:00:00 09:50:00 ANDREW ity [facility] 2021-12-28 2021-12-28 Orders Doctor HOPE [id number] Univers 00:00:00 00:00:00 Only Unassigned, [place] [id number] ity of [place] [facility] [id number] Hermes as [id number] [facility] magda 009 Branch 2019-09-23 2019-09-23 [facility] [id number] Common 15:09:00 15:09:00 [facility] 2019-09-09 2019-09-09 [facility] [id number] Common 11:30:00 11:30:[address] [facility] 2019-08-05 2019-08-05 [facility] [id number] Common 14:57:00 14:57:[address] [facility] 2019-08-02 2019-08-02 [facility] [id number] Common 14:24:00 14:24:[address] [facility] 2019-07-26 2019-07-26 [facility] [id number] Common 13:14:00 13:14:[address] [facility] 2019-07-20 2019-07-20 [facility] [id number] Common 09:08:00 09:08:[address] [facility] 2019-07-14 2019-07-14 [facility] [id number] Common 15:20:00 15:20:[address] [facility] 2019-06-24 2019-06-24 [facility] [id number] Common 11:00:00 11:00:[address] [facility] 2019-06-01 2019-06-01 [facility] [id number] Common 12:18:00 12:18:[address] [facility] 2019-05-31 2019-05-31 [facility] [id number] Common 14:36:00 14:36:[address] [facility] 2019-05-27 2019-05-27 [facility] [id number] Common 10:30:00 10:30:[address] [facility] 2019-04-12 2019-04-12 [facility] [id number] Common 14:45:00 14:45:[address] [facility] 2019-03-22 2019-03-22 [facility] [id number] Common 10:30:00 10:30:[address] [facility] 2019-03-08 2019-03-08 [facility] [id number] Common 14:45:00 14:45:[address] [facility] 2019-03-02 2019-03-02 [facility] [id number] Common 10:30:00 10:30:[address] [facility] 2018-12-28 2018-12-28 [facility] [id number] Common 15:15:00 15:15:[address] [facility] 2018-12-10 2018-12-10 [facility] [id number] Common 14:52:00 14:52:[address] [facility] 2018-11-19 2018-11-19 [facility] [id number] Common 11:30:00 11:30:[address] [facility] 2018-10-22 2018-10-22 [facility] [id number] Common 11:45:00 11:45:[address] [facility] 2018-09-18 2018-09-18 [facility] [id number] Common 11:48:00 11:48:[address] [facility] 2018-09-16 2018-09-16 [facility] [id number] Common 15:42:00 15:42:[address] [facility] 2017 2017-06-10 Inpatient [facility] [id number] Memoria 10:29:00 22:37:[address] 2017 2017-06-10 Inpatient nullFlavo [facility] [id number] Memoria 10:29:00 22:37:[address] [facility] 2017 2017-06-10 Outpatient Katherine, [facility] [id number] 05:29:00 17:37:00 Giancarlo Jade 2016-12-02 2017-01-01 Wound Care nullFlavo [facility] [id number] Memoria 18:13:00 04:59:[address] [facility] 2016-12-02 2017-01-01 Wound Care nullFlavo [facility] [id number] Memoria 18:13:00 04:59:[address] [facility] 2016-12-02 2016-12-31 Outpatient Blank, [facility] [id number] 13:13:00 23:59:00 Farhad Genao 2016-10-02 2016-11-01 Wound Care nullFlavo [facility] [id number] Memoria 16:00:00 05:59:[address] [facility] 2016-10-02 2016-11-01 Wound Care nullFlavo [facility] [id number] Memoria 16:00:00 05:59:[address] [facility] 2016-10-02 2016-10-31 Outpatient Blank, [facility] [id number] 10:00:00 23:59:00 Farhad Genao 2016-07-28 2016-07-30 Inpatient nullFlavo [facility] [id number] Memoria 02:46:00 20:34:00 [address] Hubbard [facility] 2016-07-28 2016-07-30 Inpatient nullFlavo [facility] [id number] Memoria 02:46:00 20:34:[address] [facility] 2016-07-27 2016-07-30 Outpatient Dionte, [facility] [id number] 20:46:00 14:34:00 Sofi Hubbard 2016-05-07 2016-06-06 Wound Care nullFlavo [facility] [id number] Memoria 18:08:00 04:59:[address] [facility] 2016-05-07 2016-06-06 Wound Care nullFlavo [facility] [id number] Memoria 18:08:00 04:59:00 r Gómez 04 l [facility] 2016-05-07 2016-06-05 Outpatient Blank, [facility] [id number] 13:08:00 23:59:00 Farhad Hubbard 2016-05-30 2016-05-30 Emergency nullFlavo [facility] [id number] Memoria 14:35:00 18:49:00 r Gómez 03 l [facility] 2016-05-30 2016-05-30 Emergency nullFlavo [facility] [id number] Memoria 14:35:00 18:49:00 r Gómez 03 l [facility] 2016-05-30 2016-05-30 Outpatient Demarcus, [facility] [id number] 09:35:00 13:49:00 Branden 2016-02-06 2016-03-07 Wound Care nullFlavo [facility] [id number] Memoria 18:04:00 04:59:00 r Gómez 03 l [facility] 2016-02-06 2016-03-07 Wound Care nullFlavo [facility] [id number] Memoria 18:04:00 04:59:00 r Gómez 03 l [facility] 2016-02-06 2016-03-06 Outpatient Blank, [facility] [id number] 13:04:00 23:59:00 Farhad Genao 2015-12-12 2016-01-11 Wound Care nullFlavo [facility] [id number] Memoria 18:29:00 04:59:00 r Gómez 02 l [facility] 2015-12-12 2016-01-11 Wound Care nullFlavo [facility] [id number] Memoria 18:29:00 04:59:00 r Gómez 02 l [facility] 2015-12-12 2016-01-10 Outpatient Blank, [facility] [id number] 13:29:00 23:59:00 Farhad Genao 2015-10-24 2015-11-23 Wound Care [facility]Flavo [facility] [id number] Memoria 19:00:00 04:59:00 r Gómez 01 l [facility] 2015-10-24 2015-11-23 Wound Care nullFlavo [facility] [id number] Memoria 19:00:00 04:59:00 r Gómez 01 l [facility] 2015-10-24 2015-11-22 Outpatient Blank, [facility] [id number] 13:00:00 23:59:00 Farhad Genao 2015-09-11 2015-10-11 Wound Care nullFlavo [facility] [id number] Memoria 15:27:00 05:59:00 r [place] 00 l [facility] 2015-09-11 2015-10-11 [id number] Memoria 15:27:00 05:59:00 r Gómez 00 l [facility] 2015-09-11 2015-10-10 Outpatient Blank, [facility] [id number] 09:27:00 23:59:00 Farhad Genao 2015-09-15 2015-09-16 Outpt Diag nullFlavo [facility] [id number] Memoria 17:54:00 05:59:00 Services r Outpatient 00 l [facility] 2015-09-15 2015-09-16 Outpt Diag nullFlavo [facility] [id number] Memoria 17:54:00 05:59:00 Services r Outpatient 00 l [facility] 2015-09-15 2015-09-15 Outpatient Blank, [place] [id number] 11:54:00 23:59:00 Farhad Genao 2015-02-17 2015-02-19 Inpatient nullFlavo [facility] [id number] Memoria 14:32:00 17:39:00 r [place] 02 l [facility] 2015-02-17 2015-02-19 [facility] [id number] Memoria 14:32:00 17:39:00 r Gómez 02 l [facility] 2015-02-17 2015-02-19 Outpatient Zubieta, [id number]. [id number] 09:32:00 12:39:00 Angel Hoyt [id number] 0505-10-08 2014-06-11 Inpatient nullFlavo [facility] [id number] Memoria 23:44:00 19:30:00 r Gómez 01 l [facility] 2014-06-08 2014-06-11 Inpatient nullFlavo [facility] [id number] Memoria 23:44:00 19:30:00 r Gómez Mann l [facility] 2014-06-08 2014-06-11 Outpatient Mariza [id number] 18:44:00 14:30:00 , Negro [id number] 01 Results Test Description Test Time Test Comments Results Result Comments Source CHEM PANEL 2017-06-09 10:26:00 Test Item Value Reference Range Interpretation Comme nts eGFR (test code = eGFR) 83 [facility]2017-10-09 10:26:00 Test Item Value Reference Range Interpretation Comments Calcium Lvl (test code = Calcium Lvl) 9.0 8.5-10.5 [facility]2017-10-09 10:26:00 Test Item Value Reference Range Interpretation Comments AGAP (test code = AGAP) 8.0 10.0-20.0 [facility]2017-10-09 10:26:00 Test Item Value Reference Range Interpretation Comments Creatinine Lvl (test code = Creatinine 0.91 0.50-1.40 Lvl) [facility]2017-10-09 10:26:00 Test Item Value Reference Range Interpretation Comments Chloride Lvl (test code = Chloride Lvl) 96 95-109 [facility]2017-10-09 10:26:00 Test Item Value Reference Range Interpretation Comments CO2 (test code = CO2) 37 24-32 [facility]2017-10-09 10:26:00 Test Item Value Reference Range Interpretation Comments Sodium Lvl (test code = Sodium Lvl) 137 135-145 [facility]2017-10-09 10:26:00 Test Item Value Reference Range Interpretation Comments Glucose Lvl (test code = Glucose Lvl) 132 70-99 [facility]2017-10-09 10:26:00 Test Item Value Reference Range Interpretation Comments BUN (test code = BUN) 12 7-22 [facility]2017-10-09 10:26:00 Test Item Value Reference Range Interpretation Comments Potassium Lvl (test code = Potassium 4.0 3.5-5.1 Lvl) [facility] [id number] 10:26:00 Test Item Value Reference Range Interpretation Comments Basophils (test code = 0.9 See_Comment [Aut omated message] The Basophils) system which ge nerated this result tra nsmitted reference range : <=1.0. The reference r jose alfredo was not used to int erpret this result as normal/abnormal . [facility] [id number] 10:26:00 Test Item Value Reference Range Interpretation Comments Segs-Bands # (test code = Segs-Bands #) 5.6 1.5-8.1 [facility] [id number] 10:26:00 Test Item Value Reference Range Interpretation Comments Monocytes # (test code 1.2 See_Comment [Aut omated message] The = Monocytes #) system which generated this result tra nsmitted reference range : <=0.8. The reference r jose alfredo was not used to int erpret this result as normal/abnormal . [facility] [id number] 10:26:00 Test Item Value Reference Range Interpretation Comments Lymphocytes # (test code = Lymphocytes 1.2 1.0-5.5 #) [facility] [id number] 10:26:00 Test Item Value Reference Range Interpretation Comments Basophils # (test code 0.1 See_Comment [Aut omated message] The = Basophils #) system which generated this result tra nsmitted reference range : <=0.2. The reference r jose alfredo was not used to int erpret this result as normal/abnormal . [facility] [id number] 10:26:00 Test Item Value Reference Range Interpretation Comments Eosinophils # (test code 0.2 See_Comment [A utomated message] The = Eosinophils #) system whic h generated this result tra nsmitted reference range : <=0.5. The reference r jose alfredo was not used to int erpret this result as normal/abnormal . [facility] [id number] 10:26:00 Test Item Value Reference Range Interpretation Comments Eosinophils (test code = 2.0 See_Comment [A utomated message] The Eosinophils) system which ge nerated this result tra nsmitted reference range : <=4.0. The reference r jose alfredo was not used to int erpret this result as normal/abnormal . [facility] [id number] 10:26:00 Test Item Value Reference Range Interpretation Comments Monocytes (test code = Monocytes) 14.8 2.0-12.0 [facility] CenterCiavsahXEJERAKEHW2721-63-04 10:26:00 Test Item Value Reference Range Interpretation Comments Lymphocytes (test code = Lymphocytes) 14.9 20.0-40.0 [facility] [id number] 10:26:00 Test Item Value Reference Range Interpretation Comments Segs (test code = Segs) 67.4 45.0-75.0 [facility] [id number] 10:26:00 Test Item Value Reference Range Interpretation Comments RDW (test code = RDW) 14.4 11.5-14.5 [facility] [id number] 10:26:00 Test Item Value Reference Range Interpretation Comments Platelet (test code = Platelet) 324 133-450 [facility] [id number] 10:26:00 Test Item Value Reference Range Interpretation Comments MPV (test code = MPV) 8.9 7.4-10.4 [facility] CenterZgzelviZLLUMIMDUR7409-64-23 10:26:00 Test Item Value Reference Range Interpretation Comments MCHC (test code = MCHC) 33.7 32.0-36.0 [facility] [id number] 10:26:00 Test Item Value Reference Range Interpretation Comments RBC (test code = RBC) 3.48 4.70-6.10 [facility] [id number] 10:26:00 Test Item Value Reference Range Interpretation Comments Hgb (test code = Hgb) 10.5 14.0-18.0 [facility] [id number] 10:26:00 Test Item Value Reference Range Interpretation Comments MCV (test code = MCV) 89.8 80.0-94.0 [facility] [id number] 10:26:00 Test Item Value Reference Range Interpretation Comments Hct (test code = Hct) 31.2 42.0-54.0 [facility] CenterHjsmgbmITHSJMYWWZ7271-74-67 10:26:00 Test Item Value Reference Range Interpretation Comments MCH (test code = MCH) 30.2 pg 27.0-31.0 [facility] CenterOnajoseRQNCUMTQAZ7644-17-58 10:26:00 Test Item Value Reference Range Interpretation Comments WBC (test code = WBC) 8.4 3.7-10.4 [facility]2017-10-09 10:26:00 Test Item Value Reference Range Interpretation Comments eGFR (test code = eGFR) 83 [facility]2017-10-09 10:26:00 Test Item Value Reference Range Interpretation Comments Calcium Lvl (test code = Calcium Lvl) 9.0 8.5-10.5 [facility]2017-10-09 10:26:00 Test Item Value Reference Range Interpretation Comments AGAP (test code = AGAP) 8.0 10.0-20.0 [facility]2017-10-09 10:26:00 Test Item Value Reference Range Interpretation Comments Creatinine Lvl (test code = Creatinine 0.91 0.50-1.40 Lvl) [facility]2017-10-09 10:26:00 Test Item Value Reference Range Interpretation Comments Chloride Lvl (test code = Chloride Lvl) 96 95-109 [facility]2017-10-09 10:26:00 Test Item Value Reference Range Interpretation Comments CO2 (test code = CO2) 37 24-32 [facility]2017-10-09 10:26:00 Test Item Value Reference Range Interpretation Comments Sodium Lvl (test code = Sodium Lvl) 137 135-145 [facility]2017-10-09 10:26:00 Test Item Value Reference Range Interpretation Comments Glucose Lvl (test code = Glucose Lvl) 132 70-99 [facility]2017-10-09 10:26:00 Test Item Value Reference Range Interpretation Comments BUN (test code = BUN) 12 7-22 [facility]2017-10-09 10:26:00 Test Item Value Reference Range Interpretation Comments Potassium Lvl (test code = Potassium 4.0 3.5-5.1 Lvl) [facility] CenterHbxwwnnLXJYBFJMMY3230-98-82 10:26:00 Test Item Value Reference Range Interpretation Comments Basophils (test code = 0.9 See_Comment [Aut omated message] The Basophils) system which ge nerated this result tra nsmitted reference range : <=1.0. The reference r jose alfredo was not used to int erpret this result as normal/abnormal . [facility] CenterXjbtywiVURVOSPIYI1563-37-86 10:26:00 Test Item Value Reference Range Interpretation Comments Segs-Bands # (test code = Segs-Bands #) 5.6 1.5-8.1 [facility] CenterQeqwpszXIOCOFDKBQ1198-88-53 10:26:00 Test Item Value Reference Range Interpretation Comments Monocytes # (test code 1.2 See_Comment [Aut omated message] The = Monocytes #) system which generated this result tra nsmitted reference range : <=0.8. The reference r jose alfredo was not used to int erpret this result as normal/abnormal . [facility] CenterObjkhutYEJWVJXVYX1760-50-67 10:26:00 Test Item Value Reference Range Interpretation Comments Lymphocytes # (test code = Lymphocytes 1.2 1.0-5.5 #) [facility] CenterYfptafaYODIHNHGKM8693-19-09 10:26:00 Test Item Value Reference Range Interpretation Comments Basophils # (test code 0.1 See_Comment [Aut omated message] The = Basophils #) system which generated this result tra nsmitted reference range : <=0.2. The reference r jose alfredo was not used to int erpret this result as normal/abnormal . [facility] CenterZgkchcbMQGJOCKEWK5296-53-54 10:26:00 Test Item Value Reference Range Interpretation Comments Eosinophils # (test code 0.2 See_Comment [A utomated message] The = Eosinophils #) system whic h generated this result tra nsmitted reference range : <=0.5. The reference r jose alfredo was not used to int erpret this result as normal/abnormal . [facility] CenterNovcugfTSITZAYRGZ2528-67-55 10:26:00 Test Item Value Reference Range Interpretation Comments Eosinophils (test code = 2.0 See_Comment [A utomated message] The Eosinophils) system which ge nerated this result tra nsmitted reference range : <=4.0. The reference r jose alfredo was not used to int erpret this result as normal/abnormal . [facility] CenterWjoupjqOJMUXFVPKK4810-36-70 10:26:00 Test Item Value Reference Range Interpretation Comments Monocytes (test code = Monocytes) 14.8 2.0-12.0 [facility] CenterZsajnpfTNWOILKHVH6141-78-88 10:26:00 Test Item Value Reference Range Interpretation Comments Lymphocytes (test code = Lymphocytes) 14.9 20.0-40.0 [facility] CenterEugojpyNRETOYVZFB2985-27-05 10:26:00 Test Item Value Reference Range Interpretation Comments Segs (test code = Segs) 67.4 45.0-75.0 [facility] CenterNavpfnoLBPGJAWYSU1854-18-50 10:26:00 Test Item Value Reference Range Interpretation Comments RDW (test code = RDW) 14.4 11.5-14.5 [facility] CenterRaqaoilPEGOAJODHB7337-64-51 10:26:00 Test Item Value Reference Range Interpretation Comments Platelet (test code = Platelet) 324 133-450 [facility] CenterKzdhzzdLNSCWZMUEN0679-33-32 10:26:00 Test Item Value Reference Range Interpretation Comments MPV (test code = MPV) 8.9 7.4-10.4 [facility] CenterCllokqmVLQJIBJWXS8513-13-29 10:26:00 Test Item Value Reference Range Interpretation Comments MCHC (test code = MCHC) 33.7 32.0-36.0 [facility] CenterBathghjFRQATRCKFH2834-81-04 10:26:00 Test Item Value Reference Range Interpretation Comments RBC (test code = RBC) 3.48 4.70-6.10 [facility] CenterRiobhrcNBJLVVGCHI8222-63-71 10:26:00 Test Item Value Reference Range Interpretation Comments Hgb (test code = Hgb) 10.5 14.0-18.0 [facility] CenterRdtbolxOSZMXEWHQJ7472-09-12 10:26:00 Test Item Value Reference Range Interpretation Comments MCV (test code = MCV) 89.8 80.0-94.0 [facility] CenterQsqsnroNMZTPSHWCM7310-08-54 10:26:00 Test Item Value Reference Range Interpretation Comments Hct (test code = Hct) 31.2 42.0-54.0 [facility] CenterFovgkrvYSXKSMHYEX6836-60-54 10:26:00 Test Item Value Reference Range Interpretation Comments MCH (test code = MCH) 30.2 pg 27.0-31.0 [facility] CenterCbqcquzTPZXYQWRHP3045-21-27 10:26:00 Test Item Value Reference Range Interpretation Comments WBC (test code = WBC) 8.4 3.7-10.4 [facility] HospitalZctrguqWMHMAUZQSRVE0442-50-59 09:36:00 Test Item Value Reference Range Interpretation Comments AGAP (test code = AGAP) 6.7 10.0-20.0 [facility] HospitalAtvfbezCMAFDPBAIQAV3112-57-94 09:36:00 Test Item Value Reference Range Interpretation Comments B/C Ratio (test code = B/C Ratio) 17 6-25 [facility] HospitalCdhvpxcVMRGHCWLDZGG4001-21-32 09:36:00 Test Item Value Reference Range Interpretation Comments Globulin (test code = Globulin) 3.5 2.7-4.2 [facility] HospitalZdmwlnrOFDADJLDKASP3031-99-91 09:36:00 Test Item Value Reference Range Interpretation Comments A/G Ratio (test code = A/G Ratio) 0.5 0.7-1.6 [facility] HospitalWqecfmnCGGNKZCGPTSK2109-00-72 09:36:00 Test Item Value Reference Range Interpretation Comments eGFR (test code = eGFR) 85 [facility] HospitalGafbhxoJYDZFMPRWEPE0343-27-53 09:36:00 Test Item Value Reference Range Interpretation Comments Total Protein (test code = Total 5.2 6.4-8.4 Protein) [facility] HospitalFufqibrEQNLDQBLKJMO3496-89-94 09:36:00 Test Item Value Reference Range Interpretation Comments Albumin Lvl (test code = Albumin Lvl) 1.7 3.5-5.0 [facility] HospitalCvziezqQEBKWFUIFQPL0753-30-18 09:36:00 Test Item Value Reference Range Interpretation Comments ALT (test code = ALT) 18 See_Comment [Auto mated message] The system which ge nerated this result transmit stuart reference range : <=65. The reference range was not used to interpr et this result as cherry l/abnormal. [facility] HospitalZnlakedHFFYOOHNNVUO2863-61-21 09:36:00 Test Item Value Reference Range Interpretation Comments CO2 (test code = CO2) 36 24-32 [facility] HospitalBsskcbpRLPLVMPSYBCP9214-83-42 09:36:00 Test Item Value Reference Range Interpretation Comments Calcium Lvl (test code = Calcium Lvl) 9.1 8.5-10.5 [facility] HospitalYzlvgqtAFHOTNCXUJPO7116-61-34 09:36:00 Test Item Value Reference Range Interpretation Comments AST (test code = AST) 16 See_Comment [Auto mated message] The system which ge nerated this result transmit stuart reference range : <=37. The reference range was not used to interpr et this result as cherry l/abnormal. [facility] HospitalJalkfjpDPZRMZOEEHDL7471-39-83 09:36:00 Test Item Value Reference Range Interpretation Comments Alk Phos (test code = Alk Phos) 38 39-136 [facility] HospitalPhdjucbXYTEPZJABGFK8323-06-19 09:36:00 Test Item Value Reference Range Interpretation Comments Bili Total (test code = Bili Total) 0.3 0.2-1.3 [facility] HospitalMjgfqpfKJASMYXKJFTK5098-94-27 09:36:00 Test Item Value Reference Range Interpretation Comments Creatinine Lvl (test code = Creatinine 0.88 0.50-1.40 Lvl) [facility] HospitalXxdqrqgFILJQKSWXIRK7126-44-61 09:36:00 Test Item Value Reference Range Interpretation Comments Sodium Lvl (test code = Sodium Lvl) 136 135-145 [facility] HospitalRkzerqfBFGWIRJXJFMX8163-31-62 09:36:00 Test Item Value Reference Range Interpretation Comments Potassium Lvl (test code = Potassium 3.7 3.5-5.1 Lvl) [facility] HospitalFdurecwFIFJISJLLEMH9058-06-19 09:36:00 Test Item Value Reference Range Interpretation Comments Chloride Lvl (test code = Chloride Lvl) 97 95-109 [facility] HospitalWafhouaOXAVKJPXJJCW2971-39-39 09:36:00 Test Item Value Reference Range Interpretation Comments BUN (test code = BUN) 15 7-22 [facility] HospitalQuvynacLLIFGQJYDRZN1510-94-18 09:36:00 Test Item Value Reference Range Interpretation Comments Glucose Lvl (test code = Glucose Lvl) 135 70-99 [facility] CenterSaoqhajVXENPEYOGK6480-33-48 09:36:00 Test Item Value Reference Range Interpretation Comments Platelet (test code = Platelet) 327 133-450 [facility] CenterEqtevhvRJWYCYMEMQ3830-18-00 09:36:00 Test Item Value Reference Range Interpretation Comments MPV (test code = MPV) 8.6 7.4-10.4 [facility] CenterFvazpicGMPLARJWGN8035-86-65 09:36:00 Test Item Value Reference Range Interpretation Comments Hct (test code = Hct) 30.7 42.0-54.0 [facility] CenterQeznehlOSWFAWVLUX1028-77-01 09:36:00 Test Item Value Reference Range Interpretation Comments MCV (test code = MCV) 88.8 80.0-94.0 [facility] CenterFayzjwnFAZMIZCTHN4823-45-60 09:36:00 Test Item Value Reference Range Interpretation Comments RBC (test code = RBC) 3.46 4.70-6.10 [facility] CenterMqkkyxdUIVDEGREHW3554-80-86 09:36:00 Test Item Value Reference Range Interpretation Comments Hgb (test code = Hgb) 10.4 14.0-18.0 [facility] CenterYnelfxsWJDSGOBRBK8519-82-81 09:36:00 Test Item Value Reference Range Interpretation Comments RDW (test code = RDW) 14.2 11.5-14.5 [facility] CenterAgpkztbOIYLCVQEJO7320-40-44 09:36:00 Test Item Value Reference Range Interpretation Comments MCHC (test code = MCHC) 33.8 32.0-36.0 [facility] CenterRufyokyQHEHITRYJR7729-10-28 09:36:00 Test Item Value Reference Range Interpretation Comments MCH (test code = MCH) 30.0 pg 27.0-31.0 [facility] CenterBqevxlpVBNEQXJCVP5269-56-88 09:36:00 Test Item Value Reference Range Interpretation Comments WBC (test code = WBC) 11.4 3.7-10.4 [facility] CenterInlgjipYVHJMEHCUR5296-17-77 09:36:00 Test Item Value Reference Range Interpretation Comments Monocytes # (test code 1.5 See_Comment [Aut omated message] The = Monocytes #) system which generated this result tra nsmitted reference range : <=0.8. The reference r jose alfredo was not used to int erpret this result as normal/abnormal . [facility] CenterYkchytiPPRXSXNLWD1806-82-25 09:36:00 Test Item Value Reference Range Interpretation Comments Eosinophils # (test code 0.2 See_Comment [A utomated message] The = Eosinophils #) system whic h generated this result tra nsmitted reference range : <=0.5. The reference r jose alfredo was not used to int erpret this result as normal/abnormal . [facility] CenterYolmkqhPVARUGYHXE2363-41-68 09:36:00 Test Item Value Reference Range Interpretation Comments Lymphocytes # (test code = Lymphocytes 1.3 1.0-5.5 #) [facility] CenterCfnpdhzFCTPAVGBTV6132-75-58 09:36:00 Test Item Value Reference Range Interpretation Comments Segs-Bands # (test code = Segs-Bands #) 8.3 1.5-8.1 [facility] CenterRbonszbQPUDUPWJYJ6886-46-75 09:36:00 Test Item Value Reference Range Interpretation Comments Eosinophils (test code = 2.0 See_Comment [A utomated message] The Eosinophils) system which ge nerated this result tra nsmitted reference range : <=4.0. The reference r jose alfredo was not used to int erpret this result as normal/abnormal . [facility] CenterVrfypksQKKVTDCYQU9810-37-94 09:36:00 Test Item Value Reference Range Interpretation Comments Monocytes (test code = Monocytes) 13.2 2.0-12.0 [facility] CenterBsmhxhnWOOYLORRLX2506-99-24 09:36:00 Test Item Value Reference Range Interpretation Comments Lymphocytes (test code = Lymphocytes) 11.1 20.0-40.0 [facility] CenterDsjovtcZOVPDMTHLD1395-39-03 09:36:00 Test Item Value Reference Range Interpretation Comments Segs (test code = Segs) 73.2 45.0-75.0 [facility] CenterNfhbuclLYMBTGUDBW8512-09-73 09:36:00 Test Item Value Reference Range Interpretation Comments Basophils # (test code 0.1 See_Comment [Aut omated message] The = Basophils #) system which generated this result tra nsmitted reference range : <=0.2. The reference r jose alfredo was not used to int erpret this result as normal/abnormal . [facility] CenterHqcopozMSIKDKXENT5013-33-85 09:36:00 Test Item Value Reference Range Interpretation Comments Basophils (test code = 0.5 See_Comment [Aut omated message] The Basophils) system which ge nerated this result tra nsmitted reference range : <=1.0. The reference r jose alfredo was not used to int erpret this result as normal/abnormal . [facility] HospitalXhutlkhKGQHBAOWKOJQ7324-47-01 09:36:00 Test Item Value Reference Range Interpretation Comments AGAP (test code = AGAP) 6.7 10.0-20.0 [facility] HospitalWqwwiypJLPISKZVVRZO8870-00-68 09:36:00 Test Item Value Reference Range Interpretation Comments B/C Ratio (test code = B/C Ratio) 17 6-25 [facility] HospitalGuheaqfHNLRZLRNVGBO0621-88-16 09:36:00 Test Item Value Reference Range Interpretation Comments Globulin (test code = Globulin) 3.5 2.7-4.2 [facility] HospitalZakrjwyLFLSIAYIVWTX0365-35-92 09:36:00 Test Item Value Reference Range Interpretation Comments A/G Ratio (test code = A/G Ratio) 0.5 0.7-1.6 [facility] HospitalDjobzllVKVLNPAUQRUA2249-77-05 09:36:00 Test Item Value Reference Range Interpretation Comments eGFR (test code = eGFR) 85 [facility] HospitalRtielpmASUBRYIVQLRH0134-43-99 09:36:00 Test Item Value Reference Range Interpretation Comments Total Protein (test code = Total 5.2 6.4-8.4 Protein) [facility] HospitalJvhjkhdHWAMDENBOAFV3865-96-72 09:36:00 Test Item Value Reference Range Interpretation Comments Albumin Lvl (test code = Albumin Lvl) 1.7 3.5-5.0 [facility] HospitalCfacvrlPMIDJOZXFRDL3483-75-92 09:36:00 Test Item Value Reference Range Interpretation Comments ALT (test code = ALT) 18 See_Comment [Auto mated message] The system which ge nerated this result transmit stuart reference range : <=65. The reference range was not used to interpr et this result as cherry l/abnormal. [facility] HospitalPwhzhnqRTRZHVTTLYOK7331-15-83 09:36:00 Test Item Value Reference Range Interpretation Comments CO2 (test code = CO2) 36 24-32 [facility] HospitalUsvtyyxZZLXVQTZISIK0307-74-69 09:36:00 Test Item Value Reference Range Interpretation Comments Calcium Lvl (test code = Calcium Lvl) 9.1 8.5-10.5 [facility] HospitalPfkklkoRWNUOSRPVUZI7862-37-74 09:36:00 Test Item Value Reference Range Interpretation Comments AST (test code = AST) 16 See_Comment [Auto mated message] The system which ge nerated this result transmit stuart reference range : <=37. The reference range was not used to interpr et this result as cherry l/abnormal. [facility] HospitalSpiqrraFFOFMQIQDIYN6597-46-48 09:36:00 Test Item Value Reference Range Interpretation Comments Alk Phos (test code = Alk Phos) 38 39-136 [facility] HospitalAadkwujCLYOOEPDLKVE4207-77-26 09:36:00 Test Item Value Reference Range Interpretation Comments Bili Total (test code = Bili Total) 0.3 0.2-1.3 [facility] HospitalSpdztjhFBZYAWUAXEXT1246-79-02 09:36:00 Test Item Value Reference Range Interpretation Comments Creatinine Lvl (test code = Creatinine 0.88 0.50-1.40 Lvl) [facility] HospitalUijmbahLZQQNZMZRPQG1765-22-20 09:36:00 Test Item Value Reference Range Interpretation Comments Sodium Lvl (test code = Sodium Lvl) 136 135-145 [facility] HospitalHgpamzwRNXKFFRSKYFQ8122-36-82 09:36:00 Test Item Value Reference Range Interpretation Comments Potassium Lvl (test code = Potassium 3.7 3.5-5.1 Lvl) [facility] HospitalNlchaerKWFFXSSDBQIH9713-14-28 09:36:00 Test Item Value Reference Range Interpretation Comments Chloride Lvl (test code = Chloride Lvl) 97 95-109 [facility] HospitalBcgbsdpVOWSXEKHEUNF0394-83-10 09:36:00 Test Item Value Reference Range Interpretation Comments BUN (test code = BUN) 15 7-22 [facility] HospitalEiqoozeSBEOXZLRNJBW8730-97-16 09:36:00 Test Item Value Reference Range Interpretation Comments Glucose Lvl (test code = Glucose Lvl) 135 70-99 [facility] CenterElsytznVOSMFQYHRM5591-25-95 09:36:00 Test Item Value Reference Range Interpretation Comments Platelet (test code = Platelet) 327 133-450 [facility] CenterNpryrkiAVXMICQATR2951-50-60 09:36:00 Test Item Value Reference Range Interpretation Comments MPV (test code = MPV) 8.6 7.4-10.4 [facility] CenterVzdophwKYNENVHDRH6415-69-79 09:36:00 Test Item Value Reference Range Interpretation Comments Hct (test code = Hct) 30.7 42.0-54.0 [facility] CenterOymqonvMWLNNPDMQD6323-26-86 09:36:00 Test Item Value Reference Range Interpretation Comments MCV (test code = MCV) 88.8 80.0-94.0 [facility] CenterBmeelclIRXKOPSJOO6672-44-87 09:36:00 Test Item Value Reference Range Interpretation Comments RBC (test code = RBC) 3.46 4.70-6.10 [facility] CenterGmjjnvpIBHKZEMXRG9436-51-86 09:36:00 Test Item Value Reference Range Interpretation Comments Hgb (test code = Hgb) 10.4 14.0-18.0 [facility] CenterRnrfkqpSMDHHEVEUN5894-84-34 09:36:00 Test Item Value Reference Range Interpretation Comments RDW (test code = RDW) 14.2 11.5-14.5 [facility] CenterAgjzdetYRKIDWNWTW9140-10-39 09:36:00 Test Item Value Reference Range Interpretation Comments MCHC (test code = MCHC) 33.8 32.0-36.0 [facility] CenterLtaeasdOVMJLYBNJA2353-38-08 09:36:00 Test Item Value Reference Range Interpretation Comments MCH (test code = MCH) 30.0 pg 27.0-31.0 [facility] CenterJfryrykVCTFKDGBBM6725-64-84 09:36:00 Test Item Value Reference Range Interpretation Comments WBC (test code = WBC) 11.4 3.7-10.4 [facility] CenterTrfptbhYRRZBZASJC7991-14-28 09:36:00 Test Item Value Reference Range Interpretation Comments Monocytes # (test code 1.5 See_Comment [Aut omated message] The = Monocytes #) system which generated this result tra nsmitted reference range : <=0.8. The reference r jose alfredo was not used to int erpret this result as normal/abnormal . [facility] CenterHftjszcACUIRNQKRS9935-70-22 09:36:00 Test Item Value Reference Range Interpretation Comments Eosinophils # (test code 0.2 See_Comment [A utomated message] The = Eosinophils #) system whic h generated this result tra nsmitted reference range : <=0.5. The reference r jose alfredo was not used to int erpret this result as normal/abnormal . [facility] CenterWbcvljaGDAXNMNNZT5160-29-47 09:36:00 Test Item Value Reference Range Interpretation Comments Lymphocytes # (test code = Lymphocytes 1.3 1.0-5.5 #) [facility] CenterCjqhidnVXNLPCHPID2993-16-92 09:36:00 Test Item Value Reference Range Interpretation Comments Segs-Bands # (test code = Segs-Bands #) 8.3 1.5-8.1 [facility] CenterLssaelqFVIVXYKDMF4354-82-06 09:36:00 Test Item Value Reference Range Interpretation Comments Eosinophils (test code = 2.0 See_Comment [A utomated message] The Eosinophils) system which ge nerated this result tra nsmitted reference range : <=4.0. The reference r jose alfredo was not used to int erpret this result as normal/abnormal . [facility] CenterHecxterQIBZMRZGUK7167-33-35 09:36:00 Test Item Value Reference Range Interpretation Comments Monocytes (test code = Monocytes) 13.2 2.0-12.0 [facility] CenterTtloocuKCUXUKJZCJ1790-20-95 09:36:00 Test Item Value Reference Range Interpretation Comments Lymphocytes (test code = Lymphocytes) 11.1 20.0-40.0 [facility] CenterAsphfzgJINXUSUPOU1267-96-90 09:36:00 Test Item Value Reference Range Interpretation Comments Segs (test code = Segs) 73.2 45.0-75.0 [facility] CenterOhbzqmeECXVUCTPBS9534-49-40 09:36:00 Test Item Value Reference Range Interpretation Comments Basophils # (test code 0.1 See_Comment [Aut omated message] The = Basophils #) system which generated this result tra nsmitted reference range : <=0.2. The reference r jose alfredo was not used to int erpret this result as normal/abnormal . [facility] CenterIpqkczmRSVKRGWYGN7807-83-27 09:36:00 Test Item Value Reference Range Interpretation Comments Basophils (test code = 0.5 See_Comment [Aut omated message] The Basophils) system which ge nerated this result tra nsmitted reference range : <=1.0. The reference r jose alfredo was not used to int erpret this result as normal/abnormal . [facility]2017-10-04 15:09:00 Test Item Value Reference Range Interpretation Comments B/C Ratio (test code = B/C Ratio) 15 6-25 [facility]2017-10-04 15:09:00 Test Item Value Reference Range Interpretation Comments Globulin (test code = Globulin) 3.7 2.7-4.2 [facility]2017-10-04 15:09:00 Test Item Value Reference Range Interpretation Comments A/G Ratio (test code = A/G Ratio) 0.5 0.7-1.6 [facility]2017-10-04 15:09:00 Test Item Value Reference Range Interpretation Comments AGAP (test code = AGAP) 10.8 10.0-20.0 [facility]2017-10-04 15:09:00 Test Item Value Reference Range Interpretation Comments eGFR (test code = eGFR) 83 [facility]2017-10-04 15:09:00 Test Item Value Reference Range Interpretation Comments Alk Phos (test code = Alk Phos) 43 39-136 [facility]2017-10-04 15:09:00 Test Item Value Reference Range Interpretation Comments Bili Total (test code = Bili Total) 0.3 0.2-1.3 [facility]2017-10-04 15:09:00 Test Item Value Reference Range Interpretation Comments Total Protein (test code = Total 5.4 6.4-8.4 Protein) [facility]2017-10-04 15:09:00 Test Item Value Reference Range Interpretation Comments Calcium Lvl (test code = Calcium Lvl) 8.9 8.5-10.5 [facility]2017-10-04 15:09:00 Test Item Value Reference Range Interpretation Comments Albumin Lvl (test code = Albumin Lvl) 1.7 3.5-5.0 [facility]2017-10-04 15:09:00 Test Item Value Reference Range Interpretation Comments CO2 (test code = CO2) 35 24-32 [facility]2017-10-04 15:09:00 Test Item Value Reference Range Interpretation Comments ALT (test code = ALT) 21 See_Comment [Auto mated message] The system which ge nerated this result transmit stuart reference range : <=65. The reference range was not used to interpr et this result as cherry l/abnormal. [facility]2017-10-04 15:09:00 Test Item Value Reference Range Interpretation Comments AST (test code = AST) 19 See_Comment [Auto mated message] The system which ge nerated this result transmit stuart reference range : <=37. The reference range was not used to interpr et this result as cherry l/abnormal. [facility]2017-10-04 15:09:00 Test Item Value Reference Range Interpretation Comments Creatinine Lvl (test code = Creatinine 0.91 0.50-1.40 Lvl) [facility]2017-10-04 15:09:00 Test Item Value Reference Range Interpretation Comments Sodium Lvl (test code = Sodium Lvl) 135 135-145 [facility]2017-10-04 15:09:00 Test Item Value Reference Range Interpretation Comments BUN (test code = BUN) 14 7-22 [facility]2017-10-04 15:09:00 Test Item Value Reference Range Interpretation Comments Chloride Lvl (test code = Chloride Lvl) 93 95-109 [facility]2017-10-04 15:09:00 Test Item Value Reference Range Interpretation Comments Potassium Lvl (test code = Potassium 3.8 3.5-5.1 Lvl) [facility]2017-10-04 15:09:00 Test Item Value Reference Range Interpretation Comments Glucose Lvl (test code = Glucose Lvl) 145 70-99 [facility] CenterKwwnrykGIJFNFDNHT3790-43-57 15:09:00 Test Item Value Reference Range Interpretation Comments Spherocyte (test code = Moderate Spherocyte) *ABN*(06/04/17 10:09 AM) [facility] CenterBrvacdrGSKSRZNZJG5478-94-64 15:09:00 Test Item Value Reference Range Interpretation Comments RBC Morph (test code = Normal (06/04/17 10:09 RBC Morph) AM) [facility] CenterQkilkksECMKNWCMEW4184-58-36 15:09:00 Test Item Value Reference Range Interpretation Comments Large Plt (test code Moderate *ABN*(06/04/17 = Large Plt) 10:09 AM) [facility] CenterLzkgvrcDFXUEFVOXS6609-55-25 15:09:00 Test Item Value Reference Range Interpretation Comments Toxic Gran (test code Moderate *ABN*(06/04/17 = Toxic Gran) 10:09 AM) [facility] CenterYnjfqcxNSWKPSZYUF3025-37-57 15:09:00 Test Item Value Reference Range Interpretation Comments Lymphocytes (test code = Lymphocytes) 8.0 20.0-40.0 [facility] CenterBitmaruHEZDZMUVAM2214-68-85 15:09:00 Test Item Value Reference Range Interpretation Comments Bands (test code = 4.0 See_Comment [Automat ed message] The Bands) system which ge nerated this result transmit stuart reference range : <=11.0. The reference r jose alfredo was not used to interpr et this result as cherry l/abnormal. [facility] CenterGlbzcxvNXGYZNMBYL0209-20-88 15:09:00 Test Item Value Reference Range Interpretation Comments Atypical Lymphs (test code = Atypical 0.0 Lymphs) [facility] CenterYlhhlnjQPJPOKMSWL4970-27-53 15:09:00 Test Item Value Reference Range Interpretation Comments Eosinophils (test code = 1.0 See_Comment [A utomated message] The Eosinophils) system which ge nerated this result tra nsmitted reference range : <=4.0. The reference r jose alfredo was not used to int erpret this result as normal/abnormal . [facility] CenterFmmwiryXOVEALQWGR1815-53-39 15:09:00 Test Item Value Reference Range Interpretation Comments Monocytes (test code = Monocytes) 7.0 2.0-12.0 [facility] CenterIsqfimiCAPNASLFCM9355-34-05 15:09:00 Test Item Value Reference Range Interpretation Comments Segs (test code = Segs) 80.0 45.0-75.0 [facility] CenterFwqodweQMKZJMVZTE8260-61-88 15:09:00 Test Item Value Reference Range Interpretation Comments Eosinophils # (test code 0.1 See_Comment [A utomated message] The = Eosinophils #) system whic h generated this result tra nsmitted reference range : <=0.5. The reference r jose alfredo was not used to int erpret this result as normal/abnormal . [facility] CenterVlnbzowYCSTEJYTEO1148-76-39 15:09:00 Test Item Value Reference Range Interpretation Comments Segs-Bands # (test code = Segs-Bands #) 11.8 1.5-8.1 [facility] CenterMboykrnVEQGYEBRTK3230-17-37 15:09:00 Test Item Value Reference Range Interpretation Comments Monocytes # (test code 1.0 See_Comment [Aut omated message] The = Monocytes #) system which generated this result tra nsmitted reference range : <=0.8. The reference r jose alfredo was not used to int erpret this result as normal/abnormal . [facility] CenterTcqisaeHRBPNRJCSG2367-72-16 15:09:00 Test Item Value Reference Range Interpretation Comments Lymphocytes # (test code = Lymphocytes 1.1 1.0-5.5 #) [facility] CenterRebsbpkPZHDVYPVSQ1029-43-49 15:09:00 Test Item Value Reference Range Interpretation Comments MCH (test code = MCH) 29.7 pg 27.0-31.0 [facility] CenterOuwpgiaXLATUGIPWF4859-23-21 15:09:00 Test Item Value Reference Range Interpretation Comments Hct (test code = Hct) 32.8 42.0-54.0 [facility] CenterYntdikwHAYZXQQWSU9185-03-75 15:09:00 Test Item Value Reference Range Interpretation Comments Hgb (test code = Hgb) 11.0 14.0-18.0 [facility] CenterJvgvukbOKQZXTEKNK9867-60-58 15:09:00 Test Item Value Reference Range Interpretation Comments RBC (test code = RBC) 3.68 4.70-6.10 [facility] CenterBadwpuhHUNMJIHIKZ0232-39-47 15:09:00 Test Item Value Reference Range Interpretation Comments MCV (test code = MCV) 89.0 80.0-94.0 [facility] CenterMagtbgwMBFTWPGMEM5803-43-90 15:09:00 Test Item Value Reference Range Interpretation Comments WBC (test code = WBC) 14.0 3.7-10.4 [facility] CenterZrbusolCGHGIJOVLM5693-02-49 15:09:00 Test Item Value Reference Range Interpretation Comments RDW (test code = RDW) 14.4 11.5-14.5 [facility] CenterXzwcroxHBHVSCXAMJ1822-77-58 15:09:00 Test Item Value Reference Range Interpretation Comments Platelet (test code = Platelet) 336 133-450 [facility] CenterLnxlhpgITXICROVVM4465-72-95 15:09:00 Test Item Value Reference Range Interpretation Comments MPV (test code = MPV) 8.5 7.4-10.4 [facility] CenterTchanqfMWQUJZZAXC7755-17-25 15:09:00 Test Item Value Reference Range Interpretation Comments MCHC (test code = MCHC) 33.4 32.0-36.0 [facility]2017-10-04 15:09:00 Test Item Value Reference Range Interpretation Comments B/C Ratio (test code = B/C Ratio) 15 6-25 [facility]2017-10-04 15:09:00 Test Item Value Reference Range Interpretation Comments Globulin (test code = Globulin) 3.7 2.7-4.2 [facility]2017-10-04 15:09:00 Test Item Value Reference Range Interpretation Comments A/G Ratio (test code = A/G Ratio) 0.5 0.7-1.6 [facility]2017-10-04 15:09:00 Test Item Value Reference Range Interpretation Comments AGAP (test code = AGAP) 10.8 10.0-20.0 [facility]2017-10-04 15:09:00 Test Item Value Reference Range Interpretation Comments eGFR (test code = eGFR) 83 [facility]2017-10-04 15:09:00 Test Item Value Reference Range Interpretation Comments Alk Phos (test code = Alk Phos) 43 39-136 [facility]2017-10-04 15:09:00 Test Item Value Reference Range Interpretation Comments Bili Total (test code = Bili Total) 0.3 0.2-1.3 [facility]2017-10-04 15:09:00 Test Item Value Reference Range Interpretation Comments Total Protein (test code = Total 5.4 6.4-8.4 Protein) [facility]2017-10-04 15:09:00 Test Item Value Reference Range Interpretation Comments Calcium Lvl (test code = Calcium Lvl) 8.9 8.5-10.5 [facility]2017-10-04 15:09:00 Test Item Value Reference Range Interpretation Comments Albumin Lvl (test code = Albumin Lvl) 1.7 3.5-5.0 [facility]2017-10-04 15:09:00 Test Item Value Reference Range Interpretation Comments CO2 (test code = CO2) 35 24-32 [facility]2017-10-04 15:09:00 Test Item Value Reference Range Interpretation Comments ALT (test code = ALT) 21 See_Comment [Auto mated message] The system which ge nerated this result transmit stuart reference range : <=65. The reference range was not used to interpr et this result as cherry l/abnormal. [facility]2017-10-04 15:09:00 Test Item Value Reference Range Interpretation Comments AST (test code = AST) 19 See_Comment [Auto mated message] The system which ge nerated this result transmit stuart reference range : <=37. The reference range was not used to interpr et this result as cherry l/abnormal. [facility]2017-10-04 15:09:00 Test Item Value Reference Range Interpretation Comments Creatinine Lvl (test code = Creatinine 0.91 0.50-1.40 Lvl) [facility]2017-10-04 15:09:00 Test Item Value Reference Range Interpretation Comments Sodium Lvl (test code = Sodium Lvl) 135 135-145 [facility]2017-10-04 15:09:00 Test Item Value Reference Range Interpretation Comments BUN (test code = BUN) 14 7-22 [facility]2017-10-04 15:09:00 Test Item Value Reference Range Interpretation Comments Chloride Lvl (test code = Chloride Lvl) 93 95-109 [facility]2017-10-04 15:09:00 Test Item Value Reference Range Interpretation Comments Potassium Lvl (test code = Potassium 3.8 3.5-5.1 Lvl) [facility]2017-10-04 15:09:00 Test Item Value Reference Range Interpretation Comments Glucose Lvl (test code = Glucose Lvl) 145 70-99 [facility] CenterFiahbxlLDPQBIWZDI7070-68-64 15:09:00 Test Item Value Reference Range Interpretation Comments Spherocyte (test code = Moderate Spherocyte) *ABN*(06/04/17 10:09 AM) [facility] CenterScfattuMGYUXKCWSJ1006-35-17 15:09:00 Test Item Value Reference Range Interpretation Comments RBC Morph (test code = Normal (06/04/17 10:09 RBC Morph) AM) [facility] CenterTjkafbwDRUNGHTPJL5505-83-93 15:09:00 Test Item Value Reference Range Interpretation Comments Large Plt (test code Moderate *ABN*(06/04/17 = Large Plt) 10:09 AM) [facility] CenterUuxcrpiPCHAMBWAJT6673-03-52 15:09:00 Test Item Value Reference Range Interpretation Comments Toxic Gran (test code Moderate *ABN*(06/04/17 = Toxic Gran) 10:09 AM) [facility] CenterYjruzftEGJNIEKGSJ6137-01-36 15:09:00 Test Item Value Reference Range Interpretation Comments Lymphocytes (test code = Lymphocytes) 8.0 20.0-40.0 [facility] CenterRgixizgQYUELQPIQI5038-77-67 15:09:00 Test Item Value Reference Range Interpretation Comments Bands (test code = 4.0 See_Comment [Automat ed message] The Bands) system which ge nerated this result transmit stuart reference range : <=11.0. The reference r jose alfredo was not used to interpr et this result as cherry l/abnormal. [facility] CenterFdxhnjoMMFFTADKMM3053-25-53 15:09:00 Test Item Value Reference Range Interpretation Comments Atypical Lymphs (test code = Atypical 0.0 Lymphs) [facility] CenterQyizoarFFYFLGFRET9531-08-65 15:09:00 Test Item Value Reference Range Interpretation Comments Eosinophils (test code = 1.0 See_Comment [A utomated message] The Eosinophils) system which ge nerated this result tra nsmitted reference range : <=4.0. The reference r jose alfredo was not used to int erpret this result as normal/abnormal . [facility] CenterTfjpppnCQPPBNTVJG1015-77-13 15:09:00 Test Item Value Reference Range Interpretation Comments Monocytes (test code = Monocytes) 7.0 2.0-12.0 [facility] CenterXhikyjnLQWAWZQRFU6176-93-80 15:09:00 Test Item Value Reference Range Interpretation Comments Segs (test code = Segs) 80.0 45.0-75.0 [facility] CenterIwqpbihZJSUOZFLRL6881-60-49 15:09:00 Test Item Value Reference Range Interpretation Comments Eosinophils # (test code 0.1 See_Comment [A utomated message] The = Eosinophils #) system whic h generated this result tra nsmitted reference range : <=0.5. The reference r jose alfredo was not used to int erpret this result as normal/abnormal . [facility] CenterYsxgiksFEKGQJFJPU1009-34-37 15:09:00 Test Item Value Reference Range Interpretation Comments Segs-Bands # (test code = Segs-Bands #) 11.8 1.5-8.1 [facility] CenterMxmhgcgJTODKLEMXH1064-10-63 15:09:00 Test Item Value Reference Range Interpretation Comments Monocytes # (test code 1.0 See_Comment [Aut omated message] The = Monocytes #) system which generated this result tra nsmitted reference range : <=0.8. The reference r jose alfredo was not used to int erpret this result as normal/abnormal . [facility] CenterFecydgpGSAVUEJMYD5222-76-00 15:09:00 Test Item Value Reference Range Interpretation Comments Lymphocytes # (test code = Lymphocytes 1.1 1.0-5.5 #) [facility] CenterEbujcmgLBDPASTCDR7233-01-67 15:09:00 Test Item Value Reference Range Interpretation Comments MCH (test code = MCH) 29.7 pg 27.0-31.0 [facility] CenterOmnpdyiGXOSYFFCEI4420-45-71 15:09:00 Test Item Value Reference Range Interpretation Comments Hct (test code = Hct) 32.8 42.0-54.0 [facility] CenterVqpsqitXNHILEWSIM5581-26-10 15:09:00 Test Item Value Reference Range Interpretation Comments Hgb (test code = Hgb) 11.0 14.0-18.0 [facility] CenterDfobdvhENXTMIUEMU7931-54-83 15:09:00 Test Item Value Reference Range Interpretation Comments RBC (test code = RBC) 3.68 4.70-6.10 [facility] CenterOivrlduYQEJSRPAGS0208-84-15 15:09:00 Test Item Value Reference Range Interpretation Comments MCV (test code = MCV) 89.0 80.0-94.0 [facility] CenterPznkxejYPGTLUQLGO6846-64-09 15:09:00 Test Item Value Reference Range Interpretation Comments WBC (test code = WBC) 14.0 3.7-10.4 [facility] CenterWmtxdzrMMDMCHSUFX3303-57-41 15:09:00 Test Item Value Reference Range Interpretation Comments RDW (test code = RDW) 14.4 11.5-14.5 [facility] CenterQhkezofYDTVNXOSMJ5793-57-71 15:09:00 Test Item Value Reference Range Interpretation Comments Platelet (test code = Platelet) 336 133-450 [facility] CenterSfdzksgVJMAOLLPYP1899-14-62 15:09:00 Test Item Value Reference Range Interpretation Comments MPV (test code = MPV) 8.5 7.4-10.4 [facility] CenterJdfklauOYRDTEIUUX0466-91-57 15:09:00 Test Item Value Reference Range Interpretation Comments MCHC (test code = MCHC) 33.4 32.0-36.0 [facility] CenterDqnmlzjHRFZSIRTEA6907-70-87 20:40:00 Test Item Value Reference Range Interpretation Comments Basophils (test code = 0.4 See_Comment [Aut omated message] The Basophils) system which ge nerated this result tra nsmitted reference range : <=1.0. The reference r jose alfredo was not used to int erpret this result as normal/abnormal . [facility] CenterJnikosdKEWPBJNDNL1987-06-90 20:40:00 Test Item Value Reference Range Interpretation Comments RBC Morph (test code = Normal (06/03/17 3:40 RBC Morph) PM) [facility] CenterAtpacucQGHIRDGYJU9757-56-26 20:40:00 Test Item Value Reference Range Interpretation Comments Plt Morph (test code = Normal (06/03/17 3:40 Plt Morph) PM) [facility] CenterEtlrkljKAIQCPTEEX8968-78-35 20:40:00 Test Item Value Reference Range Interpretation Comments Basophils # (test code 0.1 See_Comment [Aut omated message] The = Basophils #) system which generated this result tra nsmitted reference range : <=0.2. The reference r jose alfredo was not used to int erpret this result as normal/abnormal . [facility] CenterImzvdhkIGEAXFAWYU9733-49-39 20:40:00 Test Item Value Reference Range Interpretation Comments Basophils (test code = 0.4 See_Comment [Aut omated message] The Basophils) system which ge nerated this result tra nsmitted reference range : <=1.0. The reference r jose alfredo was not used to int erpret this result as normal/abnormal . [facility] CenterOffnsfcEZVBCXJWZE9295-82-01 20:40:00 Test Item Value Reference Range Interpretation Comments RBC Morph (test code = Normal (06/03/17 3:40 RBC Morph) PM) [facility] CenterRnpqjjeHFLPUNFVSV3117-21-17 20:40:00 Test Item Value Reference Range Interpretation Comments Plt Morph (test code = Normal (06/03/17 3:40 Plt Morph) PM) [facility] CenterWstjrjbVJQIUSDUDC5348-16-48 20:40:00 Test Item Value Reference Range Interpretation Comments Basophils # (test code 0.1 See_Comment [Aut omated message] The = Basophils #) system which generated this result tra nsmitted reference range : <=0.2. The reference r jose alfredo was not used to int erpret this result as normal/abnormal . [facility] CenterPyauyjhFQZSFDLTES7175-91-21 09:41:00 Test Item Value Reference Range Interpretation Comments Metamyelocytes (test code 2.0 See_Comment [ Automated message] = Metamyelocytes) The system which generated this result transmitted ref erence range: <=1.0. T he reference range was not used to int erpret this result as normal/abnormal . [facility] CenterQmbfysmMERKSEJVSI8271-01-86 09:41:00 Test Item Value Reference Range Interpretation Comments Atypical Lymphs (test code = Atypical 0.0 Lymphs) [facility] CenterKbazhtgQQJLWPMGKV8942-45-35 09:41:00 Test Item Value Reference Range Interpretation Comments Bands (test code = 10.0 See_Comment [Automat ed message] The Bands) system which ge nerated this result transmit stuart reference range : <=11.0. The reference r jose alfredo was not used to interpr et this result as cherry l/abnormal. [facility] CenterSgkrombXDZHLPCBVT2768-22-21 09:41:00 Test Item Value Reference Range Interpretation Comments Plt Morph (test code = Normal (05/31/17 4:41 Plt Morph) AM) [facility] CenterVmwmfyeSVJJJIZQPH6117-84-99 09:41:00 Test Item Value Reference Range Interpretation Comments RBC Morph (test code = Normal (05/31/17 4:41 RBC Morph) AM) [facility] CenterBjnkbpxFVQZASSFIC0197-07-30 09:41:00 Test Item Value Reference Range Interpretation Comments Toxic Gran (test code Moderate *ABN*(05/31/17 = Toxic Gran) 4:41 AM) [facility] CenterSirsdavSGNNIZKQBX0402-56-37 09:41:00 Test Item Value Reference Range Interpretation Comments Tot Cell Ct (test code = Tot Cell Ct) 100 1 [facility] CenterDqmiopqTDIZMUAUUE5489-49-72 09:41:00 Test Item Value Reference Range Interpretation Comments Metamyelocytes (test code 2.0 See_Comment [ Automated message] = Metamyelocytes) The system which generated this result transmitted ref erence range: <=1.0. T he reference range was not used to int erpret this result as normal/abnormal . [facility] CenterDmkehvuGUBXIZZPHV0246-82-92 09:41:00 Test Item Value Reference Range Interpretation Comments Atypical Lymphs (test code = Atypical 0.0 Lymphs) [facility] CenterRqadysdUFFJCQFWBG9019-83-60 09:41:00 Test Item Value Reference Range Interpretation Comments Bands (test code = 10.0 See_Comment [Automat ed message] The Bands) system which ge nerated this result transmit stuart reference range : <=11.0. The reference r jose alfredo was not used to interpr et this result as cherry l/abnormal. [facility] CenterOubugscCONNRROUGE8881-67-06 09:41:00 Test Item Value Reference Range Interpretation Comments Plt Morph (test code = Normal (05/31/17 4:41 Plt Morph) AM) [facility] CenterLbksyuoJXFABQYNVS5964-87-30 09:41:00 Test Item Value Reference Range Interpretation Comments RBC Morph (test code = Normal (05/31/17 4:41 RBC Morph) AM) [facility] CenterMpndzbzUJQBUVFAPR5380-19-72 09:41:00 Test Item Value Reference Range Interpretation Comments Toxic Gran (test code Moderate *ABN*(05/31/17 = Toxic Gran) 4:41 AM) [facility] CenterHpkxojiFHCMCYOBTN5607-33-51 09:41:00 Test Item Value Reference Range Interpretation Comments Tot Cell Ct (test code = Tot Cell Ct) [facility] [id number] 09:27:00 Test Item Value Reference Range Interpretation Comments B/C Ratio (test code = B/C Ratio) 38 6-25 [facility] [id number] 09:27:00 Test Item Value Reference Range Interpretation Comments A/G Ratio (test code = A/G Ratio) 0.4 0.7-1.6 [facility]2017-09-28 09:27:00 Test Item Value Reference Range Interpretation Comments Globulin (test code = Globulin) 3.5 2.7-4.2 [facility]2017-09-28 09:27:00 Test Item Value Reference Range Interpretation Comments ALT (test code = ALT) 16 See_Comment [Auto mated message] The system which ge nerated this result transmit stuart reference range : <=65. The reference range was not used to interpr et this result as cherry l/abnormal. [facility]2017-09-28 09:27:00 Test Item Value Reference Range Interpretation Comments Total Protein (test code = Total 5.0 6.4-8.4 Protein) [facility]2017-09-28 09:27:00 Test Item Value Reference Range Interpretation Comments Albumin Lvl (test code = Albumin Lvl) 1.5 3.5-5.0 [facility]2017-09-28 09:27:00 Test Item Value Reference Range Interpretation Comments AST (test code = AST) 18 See_Comment [Auto mated message] The system which ge nerated this result transmit stuart reference range : <=37. The reference range was not used to interpr et this result as cherry l/abnormal. [facility]2017-09-28 09:27:00 Test Item Value Reference Range Interpretation Comments Bili Total (test code = Bili Total) 0.4 0.2-1.3 [facility]2017-09-28 09:27:00 Test Item Value Reference Range Interpretation Comments Alk Phos (test code = Alk Phos) 39 39-136 [facility]2017-09-28 09:27:00 Test Item Value Reference Range Interpretation Comments B/C Ratio (test code = B/C Ratio) 38 6-25 [facility]2017-09-28 09:27:00 Test Item Value Reference Range Interpretation Comments A/G Ratio (test code = A/G Ratio) 0.4 0.7-1.6 [facility]2017-09-28 09:27:00 Test Item Value Reference Range Interpretation Comments Globulin (test code = Globulin) 3.5 2.7-4.2 [facility]2017-09-28 09:27:00 Test Item Value Reference Range Interpretation Comments ALT (test code = ALT) 16 See_Comment [Auto mated message] The system which ge nerated this result transmit stuart reference range : <=65. The reference range was not used to interpr et this result as cherry l/abnormal. [facility]2017-09-28 09:27:00 Test Item Value Reference Range Interpretation Comments Total Protein (test code = Total 5.0 6.4-8.4 Protein) [facility]2017-09-28 09:27:00 Test Item Value Reference Range Interpretation Comments Albumin Lvl (test code = Albumin Lvl) 1.5 3.5-5.0 [facility]2017-09-28 09:27:00 Test Item Value Reference Range Interpretation Comments AST (test code = AST) 18 See_Comment [Auto mated message] The system which ge nerated this result transmit stuart reference range : <=37. The reference range was not used to interpr et this result as cherry l/abnormal. [facility]2017-09-28 09:27:00 Test Item Value Reference Range Interpretation Comments Bili Total (test code = Bili Total) 0.4 0.2-1.3 [facility]2017-09-28 09:27:00 Test Item Value Reference Range Interpretation Comments Alk Phos (test code = Alk Phos) 39 39-136 [facility] [id number] 07:37:00 Test Item Value Reference Range Interpretation Comments Plt Morph (test code = Normal (05/28/17 2:37 Plt Morph) AM) [facility] [id number] 07:37:00 Test Item Value Reference Range Interpretation Comments Plt Morph (test code = Normal (05/28/17 2:37 Plt Morph) AM) [facility] AND [id number] 02:42:00 Test Item Value Reference Range Interpretation Comments UA Mucus (test code = UA Mucus) Few /LPF [facility] AND [id number] 02:42:00 Test Item Value Reference Range Interpretation Comments UA Bacteria (test code = UA Occasional /HPF Bacteria) [facility] AND [id number] 02:42:00 Test Item Value Reference Range Interpretation Comments UA Amorph Sydni (test code = UA Moderate /HPF Amorph Sydni) [facility] [id number] 02:42:00 Test Item Value Reference Range Interpretation Comments UA Sq Epi (test code = UA Sq Occasional /LPF Epi) [facility] [id number] 02:42:00 Test Item Value Reference Range Interpretation Comments UA RBC (test code = 6-10 /HPF See_Comment [Automa stuart message] The UA RBC) system which ge nerated this result tra nsmitted reference range : <=2. The reference range was not used to interpr et this result as normal/abnormal . [facility] [id number] 02:42:00 Test Item Value Reference Range Interpretation Comments UA WBC (test code = 0-2 /HPF See_Comment [Automa stuart message] The UA WBC) system which ge nerated this result tra nsmitted reference range : <=5. The reference range was not used to interpr et this result as cherry l/abnormal. [facility] [id number] 02:42:00 Test Item Value Reference Range Interpretation Comments UA Leuk Est (test Negative (05/24/17 9:42 code = UA Leuk Est) PM) [facility] AND [id number] 02:42:00 Test Item Value Reference Range Interpretation Comments Micro? (test code = Performed (05/24/17 9:42 Micro?) PM) [facility] [id number] 02:42:00 Test Item Value Reference Range Interpretation Comments UA Urobilinogen (test code = UA 1.0 0.1-1.0 Urobilinogen) [facility] [id number] 02:42:00 Test Item Value Reference Range Interpretation Comments UA Nitrite (test code Negative (05/24/17 9:42 = UA Nitrite) PM) [facility] [id number] 02:42:00 Test Item Value Reference Range Interpretation Comments UA Protein (test code = UA Protein) 30 mg/dL [facility] AND [id number] 02:42:00 Test Item Value Reference Range Interpretation Comments UA Bili (test code = Small *ABN*(05/24/17 UA Bili) 9:42 PM) [facility] AND [id number] 02:42:00 Test Item Value Reference Range Interpretation Comments UA Blood (test code = Moderate *ABN*(05/24/17 UA Blood) 9:42 PM) [facility] AND [id number] 02:42:00 Test Item Value Reference Range Interpretation Comments UA Glucose (test code Negative (05/24/17 9:42 = UA Glucose) PM) [facility] AND [id number] 02:42:00 Test Item Value Reference Range Interpretation Comments UA Ketones (test code = Trace *ABN*(05/24/17 UA Ketones) 9:42 PM) [facility] AND [id number] 02:42:00 Test Item Value Reference Range Interpretation Comments UA Spec Grav (test >=1.030 *ABN*(05/24/17 code = UA Spec Grav) 9:42 PM) [facility] AND [id number] 02:42:00 Test Item Value Reference Range Interpretation Comments UA pH (test code = UA pH) 5.0 1 5.0-8.0 [facility] AND [id number] 02:42:00 Test Item Value Reference Range Interpretation Comments UA Color (test code = Yellow *NA*(05/24/17 UA Color) 9:42 PM) [facility] AND [id number] 02:42:00 Test Item Value Reference Range Interpretation Comments UA Turbidity (test code Cloudy *ABN*(05/24/17 = UA Turbidity) 9:42 PM) [facility] AND [id number] 02:42:00 Test Item Value Reference Range Interpretation Comments UA Mucus (test code = UA Mucus) Few /LPF [facility] AND [id number] 02:42:00 Test Item Value Reference Range Interpretation Comments UA Bacteria (test code = UA Occasional /HPF Bacteria) [facility] AND [id number] 02:42:00 Test Item Value Reference Range Interpretation Comments UA Amorph Sydni (test code = UA Moderate /HPF Amorph Sydni) [facility] AND [id number] 02:42:00 Test Item Value Reference Range Interpretation Comments UA Sq Epi (test code = UA Sq Occasional /LPF Epi) [facility] AND [id number] 02:42:00 Test Item Value Reference Range Interpretation Comments UA RBC (test code = 6-10 /HPF See_Comment [Automa stuart message] The UA RBC) system which ge nerated this result tra nsmitted reference range : <=2. The reference range was not used to interpr et this result as normal/abnormal . [facility] AND [id number] 02:42:00 Test Item Value Reference Range Interpretation Comments UA WBC (test code = 0-2 /HPF See_Comment [Automa stuart message] The UA WBC) system which ge nerated this result tra nsmitted reference range : <=5. The reference range was not used to interpr et this result as cherry l/abnormal. [facility] AND [id number] 02:42:00 Test Item Value Reference Range Interpretation Comments UA Leuk Est (test Negative (05/24/17 9:42 code = UA Leuk Est) PM) [facility] AND [id number] 02:42:00 Test Item Value Reference Range Interpretation Comments Micro? (test code = Performed (05/24/17 9:42 Micro?) PM) [facility] AND [id number] 02:42:00 Test Item Value Reference Range Interpretation Comments UA Urobilinogen (test code = UA 1.0 0.1-1.0 Urobilinogen) [facility] AND [id number] 02:42:00 Test Item Value Reference Range Interpretation Comments UA Nitrite (test code Negative (05/24/17 9:42 = UA Nitrite) PM) [facility] AND [id number] 02:42:00 Test Item Value Reference Range Interpretation Comments UA Protein (test code = UA Protein) 30 mg/dL [facility] AND [id number] 02:42:00 Test Item Value Reference Range Interpretation Comments UA Bili (test code = Small *ABN*(05/24/17 UA Bili) 9:42 PM) [facility] AND [id number] 02:42:00 Test Item Value Reference Range Interpretation Comments UA Blood (test code = Moderate *ABN*(05/24/17 UA Blood) 9:42 PM) [facility] AND [id number] 02:42:00 Test Item Value Reference Range Interpretation Comments UA Glucose (test code Negative (05/24/17 9:42 = UA Glucose) PM) [facility] AND [id number] 02:42:00 Test Item Value Reference Range Interpretation Comments UA Ketones (test code = Trace *ABN*(05/24/17 UA Ketones) 9:42 PM) [facility] AND [id number] 02:42:00 Test Item Value Reference Range Interpretation Comments UA Spec Grav (test >=1.030 *ABN*(05/24/17 code = UA Spec Grav) 9:42 PM) [facility] AND [id number] 02:42:00 Test Item Value Reference Range Interpretation Comments UA pH (test code = UA pH) 5.0 1 5.0-8.0 [facility] AND [id number] 02:42:00 Test Item Value Reference Range Interpretation Comments UA Color (test code = Yellow *NA*(05/24/17 UA Color) 9:42 PM) [facility] AND [id number] 02:42:00 Test Item Value Reference Range Interpretation Comments UA Turbidity (test code Cloudy *ABN*(05/24/17 = UA Turbidity) 9:42 PM) [facility] CampusSpendSmart Payments Company [id number] 15:55:00 Test Item Value Reference Range Interpretation Comments Procalcitonin Lvl (test 14.55 See_Comment [Au tomated message] code = Procalcitonin Lvl) Th e system which generated this result transmitted ref erence range: <=0.10. The reference range was not used to interpr et this result as normal/abnormal . [facility] [employer] [id number] 15:55:00 Test Item Value Reference Range Interpretation Comments Lactic Acid Lvl (test code = Lactic 1.2 0.5-2.2 Acid Lvl) [facility] [id number] 15:55:00 Test Item Value Reference Range Interpretation Comments Procalcitonin Lvl (test 14.55 See_Comment [Au tomated message] code = Procalcitonin Lvl) Th e system which generated this result transmitted ref erence range: <=0.10. The reference range was not used to interpr et this result as normal/abnormal . [facility] [employer] [id number] 15:55:00 Test Item Value Reference Range Interpretation Comments Lactic Acid Lvl (test code = Lactic 1.2 0.5-2.2 Acid Lvl) [facility] AND [id number] 12:31:00 Test Item Value Reference Range Interpretation Comments UA Ketones (test code = UA Negative mg/dL Ketones) [facility] AND [id number] 12:31:00 Test Item Value Reference Range Interpretation Comments UA Bili (test code = Negative *NA*(05/23/17 UA Bili) 7:31 AM) [facility] AND [id number] 12:31:00 Test Item Value Reference Range Interpretation Comments UA Blood (test code = Negative (05/23/17 7:31 UA Blood) AM) [facility] AND [id number] 12:31:00 Test Item Value Reference Range Interpretation Comments UA Nitrite (test code Negative (05/23/17 7:31 = UA Nitrite) AM) [facility] AND [id number] 12:31:00 Test Item Value Reference Range Interpretation Comments UA Urobilinogen (test code = UA 2.0 0.1-1.0 Urobilinogen) [facility] AND [id number] 12:31:00 Test Item Value Reference Range Interpretation Comments UA Leuk Est (test Negative (05/23/17 7:31 code = UA Leuk Est) AM) [facility] AND [id number] 12:31:00 Test Item Value Reference Range Interpretation Comments UA WBC (test code = 1 See_Comment [Automa stuart message] The UA WBC) system which ge nerated this result transmit stuart reference range : <=5. The reference range was not used to interpr et this result as cherry l/abnormal. [facility] AND [id number] 12:31:00 Test Item Value Reference Range Interpretation Comments UA Sq Epi (test code = UA Sq Occasional /LPF Epi) [facility] AND [id number] 12:31:00 Test Item Value Reference Range Interpretation Comments UA Mucus (test code = UA Mucus) Few /LPF [facility] AND [id number] 12:31:00 Test Item Value Reference Range Interpretation Comments UA RBC (test code = 2 See_Comment [Automa stuart message] The UA RBC) system which ge nerated this result transmit stuart reference range : <=2. The reference range was not used to interpr et this result as cherry l/abnormal. [facility] AND [id number] 12:31:00 Test Item Value Reference Range Interpretation Comments UA Glucose (test code = UA Glucose) 150 mg/dL [facility] AND [id number] 12:31:00 Test Item Value Reference Range Interpretation Comments UA Protein (test code = UA Protein) 100 mg/dL [facility] AND [id number] 12:31:00 Test Item Value Reference Range Interpretation Comments UA Spec Grav (test code = UA Spec Grav) 1.020 [facility] AND [id number] 12:31:00 Test Item Value Reference Range Interpretation Comments UA pH (test code = UA pH) 5.0 5.0-8.0 [facility] AND [id number] 12:31:00 Test Item Value Reference Range Interpretation Comments UA Color (test code = Yellow *NA*(05/23/17 UA Color) 7:31 AM) [facility] AND [id number] 12:31:00 Test Item Value Reference Range Interpretation Comments UA Turbidity (test code = Clear (05/23/17 7:31 UA Turbidity) AM) [facility] AND [id number] 12:31:00 Test Item Value Reference Range Interpretation Comments UA Ketones (test code = UA Negative mg/dL Ketones) [facility] AND [id number] 12:31:00 Test Item Value Reference Range Interpretation Comments UA Bili (test code = Negative *NA*(05/23/17 UA Bili) 7:31 AM) [facility] AND [id number] 12:31:00 Test Item Value Reference Range Interpretation Comments UA Blood (test code = Negative (05/23/17 7:31 UA Blood) AM) [facility] AND [id number] 12:31:00 Test Item Value Reference Range Interpretation Comments UA Nitrite (test code Negative (05/23/17 7:31 = UA Nitrite) AM) [facility] AND [id number] 12:31:00 Test Item Value Reference Range Interpretation Comments UA Urobilinogen (test code = UA 2.0 0.1-1.0 Urobilinogen) [facility] AND [id number] 12:31:00 Test Item Value Reference Range Interpretation Comments UA Leuk Est (test Negative (05/23/17 7:31 code = UA Leuk Est) AM) [facility] AND [id number] 12:31:00 Test Item Value Reference Range Interpretation Comments UA WBC (test code = 1 See_Comment [Automa stuart message] The UA WBC) system which ge nerated this result transmit stuart reference range : <=5. The reference range was not used to interpr et this result as cherry l/abnormal. [facility] AND [id number] 12:31:00 Test Item Value Reference Range Interpretation Comments UA Sq Epi (test code = UA Sq Occasional /LPF Epi) [facility] AND [id number] 12:31:00 Test Item Value Reference Range Interpretation Comments UA Mucus (test code = UA Mucus) Few /LPF [facility] AND [id number] 12:31:00 Test Item Value Reference Range Interpretation Comments UA RBC (test code = 2 See_Comment [Automa stuart message] The UA RBC) system which ge nerated this result transmit stuart reference range : <=2. The reference range was not used to interpr et this result as cherry l/abnormal. [facility] AND [id number] 12:31:00 Test Item Value Reference Range Interpretation Comments UA Glucose (test code = UA Glucose) 150 mg/dL [facility] AND [id number] 12:31:00 Test Item Value Reference Range Interpretation Comments UA Protein (test code = UA Protein) 100 mg/dL [facility] AND [id number] 12:31:00 Test Item Value Reference Range Interpretation Comments UA Spec Grav (test code = UA Spec Grav) 1.020 [facility] AND [id number] 12:31:00 Test Item Value Reference Range Interpretation Comments UA pH (test code = UA pH) 5.0 5.0-8.0 [facility] AND [id number] 12:31:00 Test Item Value Reference Range Interpretation Comments UA Color (test code = Yellow *NA*(05/23/17 UA Color) 7:31 AM) [facility] [id number] 12:31:00 Test Item Value Reference Range Interpretation Comments UA Turbidity (test code = Clear (05/23/17 7:31 UA Turbidity) AM) [facility] [id number] 11:12:00 Test Item Value Reference Range Interpretation Comments BNP (test code = BNP) 76 [facility] [employer] [id number] 11:12:00 Test Item Value Reference Range Interpretation Comments Magnesium Lvl (test code = Magnesium 1.6 1.8-2.4 Lvl) [facility] [id number] 11:12:00 Test Item Value Reference Range Interpretation Comments Lipase Lvl (test code = Lipase Lvl) 151 73-393 [facility] CampusPlantSenseIAL [id number] 11:12:00 Test Item Value Reference Range Interpretation Comments Hgb A1C (test code = Hgb A1C) 6.5 [facility] [id number] 11:12:00 Test Item Value Reference Range Interpretation Comments BNP (test code = BNP) 76 [facility] [employer]annCHE[facility] [id number] 11:12:00 Test Item Value Reference Range Interpretation Comments Magnesium Lvl (test code = Magnesium 1.6 1.8-2.4 Lvl) [facility] [id number] 11:12:00 Test Item Value Reference Range Interpretation Comments Lipase Lvl (test code = Lipase Lvl) 151 73-393 [facility] CampusPlant[facility]enseIAL [id number] 11:12:00 Test Item Value Reference Range Interpretation Comments Hgb A1C (test code = Hgb A1C) 6.5 [facility] [id number] 11:04:00 Test Item Value Reference Range Interpretation Comments UA Sq Epi (test code = UA Sq Occasional /LPF Epi) [facility] [id number] 11:04:00 Test Item Value Reference Range Interpretation Comments UA WBC (test code = UA None Seen (07/28/16 WBC) 5:04 AM) [facility] [id number] 11:04:00 Test Item Value Reference Range Interpretation Comments UA RBC (test None Seen See_Comment [Automated mes moises] code = UA RBC) (07/28/16 5:04 The system which AM) generated this result transmitted ref erence range: <=2. The reference range was not used to int erpret this result as normal/abnormal . [facility] [id number] 11:04:00 Test Item Value Reference Range Interpretation Comments UA Bacteria (test code = UA Occasional /HPF Bacteria) [facility] AND [id number] 11:04:00 Test Item Value Reference Range Interpretation Comments UA Nitrite (test code Negative (07/28/16 5:04 = UA Nitrite) AM) [facility] AND [id number] 11:04:00 Test Item Value Reference Range Interpretation Comments UA Leuk Est (test Negative (07/28/16 5:04 code = UA Leuk Est) AM) [facility] AND [id number] 11:04:00 Test Item Value Reference Range Interpretation Comments UA Turbidity (test code = Clear (07/28/16 5:04 UA Turbidity) AM) [facility] AND [id number] 11:04:00 Test Item Value Reference Range Interpretation Comments UA Color (test code = UA Color) STRAW [facility] AND [id number] 11:04:00 Test Item Value Reference Range Interpretation Comments UA Ketones (test code Negative *NA*(07/28/16 = UA Ketones) 5:04 AM) [facility] AND [id number] 11:04:00 Test Item Value Reference Range Interpretation Comments UA Bili (test code = Negative *NA*(07/28/16 UA Bili) 5:04 AM) [facility] AND [id number] 11:04:00 Test Item Value Reference Range Interpretation Comments UA Spec Grav (test code = UA Spec 1.010 1 Grav) [facility] AND [id number] 11:04:00 Test Item Value Reference Range Interpretation Comments UA Urobilinogen (test code = UA 0.2 0.1-1.0 Urobilinogen) [facility] AND [id number] 11:04:00 Test Item Value Reference Range Interpretation Comments UA Blood (test code = Negative (07/28/16 5:04 UA Blood) AM) [facility] AND [id number] 11:04:00 Test Item Value Reference Range Interpretation Comments UA pH (test code = UA pH) 7.0 1 5.0-8.0 [facility] AND [id number] 11:04:00 Test Item Value Reference Range Interpretation Comments UA Glucose (test code = UA Glucose) 100 mg/dL [facility] AND [id number] 11:04:00 Test Item Value Reference Range Interpretation Comments UA Protein (test code Negative (07/28/16 5:04 = UA Protein) AM) [facility] AND [id number] 11:04:00 Test Item Value Reference Range Interpretation Comments UA Sq Epi (test code = UA Sq Occasional /LPF Epi) [facility] AND [id number] 11:04:00 Test Item Value Reference Range Interpretation Comments UA WBC (test code = UA None Seen (07/28/16 WBC) 5:04 AM) [facility] AND [id number] 11:04:00 Test Item Value Reference Range Interpretation Comments UA RBC (test None Seen See_Comment [Automated mes moises] code = UA RBC) (07/28/16 5:04 The system which AM) generated this result transmitted ref erence range: <=2. The reference range was not used to int erpret this result as normal/abnormal . [facility] AND [id number] 11:04:00 Test Item Value Reference Range Interpretation Comments UA Bacteria (test code = UA Occasional /HPF Bacteria) [facility] AND [id number] 11:04:00 Test Item Value Reference Range Interpretation Comments UA Nitrite (test code Negative (07/28/16 5:04 = UA Nitrite) AM) [facility] AND [id number] 11:04:00 Test Item Value Reference Range Interpretation Comments UA Leuk Est (test Negative (07/28/16 5:04 code = UA Leuk Est) AM) [facility] AND [id number] 11:04:00 Test Item Value Reference Range Interpretation Comments UA Turbidity (test code = Clear (07/28/16 5:04 UA Turbidity) AM) [facility] AND [id number] 11:04:00 Test Item Value Reference Range Interpretation Comments UA Color (test code = UA Color) STRAW [facility] AND [id number] 11:04:00 Test Item Value Reference Range Interpretation Comments UA Ketones (test code Negative *NA*(07/28/16 = UA Ketones) 5:04 AM) [facility] AND [id number] 11:04:00 Test Item Value Reference Range Interpretation Comments UA Bili (test code = Negative *NA*(07/28/16 UA Bili) 5:04 AM) [facility] AND [id number] 11:04:00 Test Item Value Reference Range Interpretation Comments UA Spec Grav (test code = UA Spec 1.010 1 Grav) [facility] AND [id number] 11:04:00 Test Item Value Reference Range Interpretation Comments UA Urobilinogen (test code = UA 0.2 0.1-1.0 Urobilinogen) [facility] AND [id number] 11:04:00 Test Item Value Reference Range Interpretation Comments UA Blood (test code = Negative (07/28/16 5:04 UA Blood) AM) [facility] AND [id number] 11:04:00 Test Item Value Reference Range Interpretation Comments UA pH (test code = UA pH) 7.0 1 5.0-8.0 [facility] AND [id number] 11:04:00 Test Item Value Reference Range Interpretation Comments UA Glucose (test code = UA Glucose) 100 mg/dL [facility] AND [id number] 11:04:00 Test Item Value Reference Range Interpretation Comments UA Protein (test code Negative (07/28/16 5:04 = UA Protein) AM) [facility] [id number] 11:00:50 Test Item Value Reference Range Interpretation Comments CHD Risk (test code = CHD Risk) 2.35 4.00-7.30 [facility] [id number] 11:00:50 Test Item Value Reference Range Interpretation Comments VLDL (test code = VLDL) 27 [facility] [id number] 11:00:50 Test Item Value Reference Range Interpretation Comments LDL (Calculated) (test code = LDL 46 (Calculated)) [facility] [id number] 11:00:50 Test Item Value Reference Range Interpretation Comments Chol (test code = Chol) 127 [facility]qjj[facility]KKWSC5211-29-63 11:00:50 Test Item Value Reference Range Interpretation Comments HDL (test code = HDL) 54 [facility] HospitalXanyziuYLRAVD6282-43-60 11:00:50 Test Item Value Reference Range Interpretation Comments Trig (test code = Trig) 135 [facility] NGFFBYNFQ7671-31-70 11:00:50 Test Item Value Reference Range Interpretation Comments Hgb A1C (test code = Hgb A1C) 6.1 [facility] TmbkbdoCQSWST8259-97-29 11:00:50 Test Item Value Reference Range Interpretation Comments CHD Risk (test code = CHD Risk) 2.35 4.00-7.30 [facility] OsyqsoyOPHWOS7649-06-97 11:00:50 Test Item Value Reference Range Interpretation Comments VLDL (test code = VLDL) 27 [facility] CampusFyjwjmsFUDVJR5607-90-32 11:00:50 Test Item Value Reference Range Interpretation Comments LDL (Calculated) (test code = LDL 46 (Calculated)) [facility] CampusOcvbrtuEUFJPF1829-92-85 11:00:50 Test Item Value Reference Range Interpretation Comments Chol (test code = Chol) 127 [facility] CampusZzdkxtmYWFXUT8708-91-39 11:00:50 Test Item Value Reference Range Interpretation Comments HDL (test code = HDL) 54 [facility] CampusYsodhicZGCLVI6755-75-20 11:00:50 Test Item Value Reference Range Interpretation Comments Trig (test code = Trig) 135 [facility] WKSPAHRWY0306-62-68 11:00:50 Test Item Value Reference Range Interpretation Comments Hgb A1C (test code = Hgb A1C) 6.1 [facility]1000jobboersen.deCARDIAC QJZIRMJ8257-75-62 04:12:00 Test Item Value Reference Range Interpretation Comments CK MB Index (test no gt See_Comment [Automate d message] The code = CK MB Index) system w [facility] generated this result transmit stuart reference range : <=2.5. The reference range was not used to interpr et this result as cherry l/abnormal. [facility]annCARD[facility]AC [id number] 04:12:00 Test Item Value Reference Range Interpretation Comments Troponin-I (test code no gt See_Comment [Auto mated message] The = Troponin-I) system which g enerated this result transmit stuart reference range : <=0.40. The reference r jose alfredo was not used to interpr et this result as cherry l/abnormal. [facility]icaannCARDIAC [id number] 04:12:00 Test Item Value Reference Range Interpretation Comments CK MB (test code = CK MB) no gt 0.5-3.6 [facility]annCARD[facility]AC [id number] 04:12:00 Test Item Value Reference Range Interpretation Comments Total CK (test code = Total CK) 49 12-191 [facility] CampusARE Telecom & WindAC [id number] 04:12:00 Test Item Value Reference Range Interpretation Comments BNP (test code = BNP) 32 [facility] [employer] [id number] 04:12:00 Test Item Value Reference Range Interpretation Comments Globulin (test code = Globulin) 3.3 2.7-4.2 [facility] [employer] [id number] 04:12:00 Test Item Value Reference Range Interpretation Comments A/G Ratio (test code = A/G Ratio) 1.0 0.7-1.6 [facility] CampusSpendSmart Payments Company [id number] 04:12:00 Test Item Value Reference Range Interpretation Comments eGFR (test code = eGFR) 53 [facility] CampusSpendSmart Payments Company [id number] 04:12:00 Test Item Value Reference Range Interpretation Comments AST (test code = AST) 11 See_Comment [Auto mated message] The system which ge nerated this result transmit stuart reference range : <=37. The reference range was not used to interpr et this result as cherry l/abnormal. [facility] [employer] [id number] 04:12:00 Test Item Value Reference Range Interpretation Comments Alk Phos (test code = Alk Phos) 38 39-136 [facility] CampusSpendSmart Payments Company [id number] 04:12:00 Test Item Value Reference Range Interpretation Comments Bili Total (test code = Bili Total) 0.2 0.2-1.3 [facility] CampusSpendSmart Payments Company [id number] 04:12:00 Test Item Value Reference Range Interpretation Comments AGAP (test code = AGAP) 10.0 10.0-20.0 [facility] [employer] [id number] 04:12:00 Test Item Value Reference Range Interpretation Comments B/C Ratio (test code = B/C Ratio) 21 6-25 [facility] CampusSpendSmart Payments Company [id number] 04:12:00 Test Item Value Reference Range Interpretation Comments ALT (test code = ALT) 16 See_Comment [Auto mated message] The system which ge nerated this result transmit stuart reference range : <=65. The reference range was not used to interpr et this result as cherry l/abnormal. [facility]2016-11-27 04:12:00 Test Item Value Reference Range Interpretation Comments Albumin Lvl (test code = Albumin Lvl) 3.3 3.5-5.0 [facility]2016-11-27 04:12:00 Test Item Value Reference Range Interpretation Comments Calcium Lvl (test code = Calcium Lvl) 8.3 8.5-10.5 [facility]2016-11-27 04:12:00 Test Item Value Reference Range Interpretation Comments CO2 (test code = CO2) 34 24-32 [facility]2016-11-27 04:12:00 Test Item Value Reference Range Interpretation Comments Total Protein (test code = Total 6.6 6.4-8.4 Protein) [facility]2016-11-27 04:12:00 Test Item Value Reference Range Interpretation Comments Glucose Lvl (test code = Glucose Lvl) 161 70-99 [facility]2016-11-27 04:12:00 Test Item Value Reference Range Interpretation Comments Potassium Lvl (test code = Potassium 4.0 3.5-5.1 Lvl) [facility]2016-11-27 04:12:00 Test Item Value Reference Range Interpretation Comments Chloride Lvl (test code = Chloride Lvl) 99 95-109 [facility]2016-11-27 04:12:00 Test Item Value Reference Range Interpretation Comments Creatinine Lvl (test code = Creatinine 1.34 0.50-1.40 Lvl) [facility]2016-11-27 04:12:00 Test Item Value Reference Range Interpretation Comments BUN (test code = BUN) 28 7-22 [facility]2016-11-27 04:12:00 Test Item Value Reference Range Interpretation Comments Sodium Lvl (test code = Sodium Lvl) 139 135-145 [facility] HospitalGgvznfeWMROYPMEJP8798-96-17 04:12:00 Test Item Value Reference Range Interpretation Comments Basophils # (test code 0.1 See_Comment [Aut omated message] The = Basophils #) system which generated this result tra nsmitted reference range : <=0.2. The reference r jose alfredo was not used to int erpret this result as normal/abnormal . [facility] CenterDaazzzsHZDNOIYKDS4760-00-13 04:12:00 Test Item Value Reference Range Interpretation Comments Segs-Bands # (test code = Segs-Bands #) 5.2 1.5-8.1 [facility] CenterJnklfcpROGOJSQCPT0656-56-85 04:12:00 Test Item Value Reference Range Interpretation Comments Lymphocytes (test code = Lymphocytes) 22.2 20.0-40.0 [facility] CenterYznwicxIHOFNUGASY1600-07-93 04:12:00 Test Item Value Reference Range Interpretation Comments Monocytes (test code = Monocytes) 13.7 2.0-12.0 [facility] CenterTqsiwczJHRLCZRWAM9353-40-71 04:12:00 Test Item Value Reference Range Interpretation Comments Eosinophils # (test code 0.2 See_Comment [A utomated message] The = Eosinophils #) system whic h generated this result tra nsmitted reference range : <=0.5. The reference r jose alfredo was not used to int erpret this result as normal/abnormal . [facility] CenterNxbaggcWCVQYEJXPZ3928-72-64 04:12:00 Test Item Value Reference Range Interpretation Comments Lymphocytes # (test code = Lymphocytes 1.9 1.0-5.5 #) [facility] CenterJqemfkkNWVPZNVTIR3118-59-61 04:12:00 Test Item Value Reference Range Interpretation Comments Monocytes # (test code 1.2 See_Comment [Aut omated message] The = Monocytes #) system which generated this result tra nsmitted reference range : <=0.8. The reference r jose alfredo was not used to int erpret this result as normal/abnormal . [facility] CenterQdmhaucLNPQBVTTYO3527-05-00 04:12:00 Test Item Value Reference Range Interpretation Comments Segs (test code = Segs) 60.8 45.0-75.0 [facility] CenterQfuzmgqVHXUTKRDJN4461-13-19 04:12:00 Test Item Value Reference Range Interpretation Comments Eosinophils (test code = 2.7 See_Comment [A utomated message] The Eosinophils) system which ge nerated this result tra nsmitted reference range : <=4.0. The reference r jose alfredo was not used to int erpret this result as normal/abnormal . [facility] CenterRjazvgsEJKFFNRCWG2434-84-15 04:12:00 Test Item Value Reference Range Interpretation Comments Basophils (test code = 0.6 See_Comment [Aut omated message] The Basophils) system which ge nerated this result tra nsmitted reference range : <=1.0. The reference r jose alfredo was not used to int erpret this result as normal/abnormal . [facility] CenterSaqesreRVEZHKMCZC4939-78-78 04:12:00 Test Item Value Reference Range Interpretation Comments PTT (test code = PTT) 26.5 s 22.9-35.8 [facility] CenterXvumlmiITUGKNRXYM1475-95-61 04:12:00 Test Item Value Reference Range Interpretation Comments PT (test code = PT) 13.6 s 12.0-14.7 [place] [id number] 04:12:00 Test Item Value Reference Range Interpretation Comments INR (test code = INR) 1.02 0.85-1.17 [facility] CenterAmafdpjIHTYUVISNL9138-11-76 04:12:00 Test Item Value Reference Range Interpretation Comments Platelet (test code = Platelet) 181 133-450 [facility] CenterAgaahqfBYLGSPKXHF9843-50-59 04:12:00 Test Item Value Reference Range Interpretation Comments MPV (test code = MPV) 10.9 7.4-10.4 [facility] CenterOjehjkmEOXQGIREZY3256-92-91 04:12:00 Test Item Value Reference Range Interpretation Comments MCH (test code = MCH) 29.9 pg 27.0-31.0 [facility] CenterNltquetPNYRYSXJMW6750-27-36 04:12:00 Test Item Value Reference Range Interpretation Comments MCHC (test code = MCHC) 33.2 32.0-36.0 [facility] CenterDlqktnlLWDCBFGOIT9302-23-29 04:12:00 Test Item Value Reference Range Interpretation Comments MCV (test code = MCV) 90.2 80.0-94.0 [facility] CenterYrnyjbxKFNREEGBVT3687-46-70 04:12:00 Test Item Value Reference Range Interpretation Comments RDW (test code = RDW) 13.3 11.5-14.5 [facility] CenterMcfxsiiRIZPEVDSOB8413-72-43 04:12:00 Test Item Value Reference Range Interpretation Comments Hgb (test code = Hgb) 13.4 14.0-18.0 [facility] CenterEtdpsxdKZDWXZJRVR2183-35-23 04:12:00 Test Item Value Reference Range Interpretation Comments Hct (test code = Hct) 40.3 42.0-54.0 [facility] CenterHsaniyuUVGXHAPKJZ9310-94-08 04:12:00 Test Item Value Reference Range Interpretation Comments WBC (test code = WBC) 8.5 3.7-10.4 [facility] SgezwwsHOCFVXUWMM7386-36-74 04:12:00 Test Item Value Reference Range Interpretation Comments RBC (test code = RBC) 4.47 4.70-6.10 [facility] [id number] 04:12:00 Test Item Value Reference Range Interpretation Comments UA Bacteria (test code = None Seen (07/27/16 UA Bacteria) 10:12 PM) [facility] [id number] 04:12:00 Test Item Value Reference Range Interpretation Comments UA WBC (test code = UA None Seen (07/27/16 WBC) 10:12 PM) [facility] [id number] 04:12:00 Test Item Value Reference Range Interpretation Comments UA RBC (test None Seen See_Comment [Automated mes moises] code = UA RBC) (07/27/16 10:12 The system which PM) generated this result transmitted ref erence range: <=2. The reference range was not used to int erpret this result as normal/abnormal . [facility] [id number] 04:12:00 Test Item Value Reference Range Interpretation Comments UA Sq Epi (test code = UA Sq Epi) Rare /LPF [facility] [id number] 04:12:00 Test Item Value Reference Range Interpretation Comments UA Nitrite (test code Negative (07/27/16 = UA Nitrite) 10:12 PM) [facility] [id number] 04:12:00 Test Item Value Reference Range Interpretation Comments UA Leuk Est (test Negative (07/27/16 10:12 code = UA Leuk Est) PM) [facility] [id number] 04:12:00 Test Item Value Reference Range Interpretation Comments UA Ketones (test code = UA Negative mg/dL Ketones) [facility] [id number] 04:12:00 Test Item Value Reference Range Interpretation Comments UA Bili (test code = Negative *NA*(07/27/16 UA Bili) 10:12 PM) [facility] [id number] 04:12:00 Test Item Value Reference Range Interpretation Comments UA Blood (test code = Negative (07/27/16 10:12 UA Blood) PM) [facility] [id number] 04:12:00 Test Item Value Reference Range Interpretation Comments UA Urobilinogen (test code = UA 0.2 0.1-1.0 Urobilinogen) [facility] [id number] 04:12:00 Test Item Value Reference Range Interpretation Comments UA Spec Grav (test code = UA Spec 1.010 1 Grav) [facility] [id number] 04:12:00 Test Item Value Reference Range Interpretation Comments UA Color (test code = Yellow *NA*(07/27/16 UA Color) 10:12 PM) [facility] [id number] 04:12:00 Test Item Value Reference Range Interpretation Comments UA Turbidity (test code = Clear (07/27/16 UA Turbidity) 10:12 PM) [facility] [id number] 04:12:00 Test Item Value Reference Range Interpretation Comments UA pH (test code = UA pH) 7.5 1 5.0-8.0 [facility] [id number] 04:12:00 Test Item Value Reference Range Interpretation Comments UA Protein (test code = UA Negative mg/dL Protein) [facility] [id number] 04:12:00 Test Item Value Reference Range Interpretation Comments UA Glucose (test code = UA Negative mg/dL Glucose) [facility]AC [id number] 04:12:00 Test Item Value Reference Range Interpretation Comments CK MB Index (test no gt See_Comment [Automate d message] The code = CK MB Index) system w [facility] generated this result transmit stuart reference range : <=2.5. The reference range was not used to interpr et this result as cherry l/abnormal. [facility] [id number] 04:12:00 Test Item Value Reference Range Interpretation Comments Troponin-I (test code no gt See_Comment [Auto mated message] The = Troponin-I) system which g enerated this result transmit stuart reference range : <=0.40. The reference r jose alfredo was not used to interpr et this result as cherry l/abnormal. [facility]annC[facility] [id number] 04:12:00 Test Item Value Reference Range Interpretation Comments CK MB (test code = CK MB) no gt 0.5-3.6 [facility]annC[facility] UQCXRCB7729-06-20 04:12:00 Test Item Value Reference Range Interpretation Comments Total CK (test code = Total CK) 49 12-191 [facility] CampusannCARBoxbeAC [id number] 04:12:00 Test Item Value Reference Range Interpretation Comments BNP (test code = BNP) 32 [facility] CampusSpendSmart Payments Company [id number] 04:12:00 Test Item Value Reference Range Interpretation Comments Globulin (test code = Globulin) 3.3 2.7-4.2 [facility] [employer] [id number] 04:12:00 Test Item Value Reference Range Interpretation Comments A/G Ratio (test code = A/G Ratio) 1.0 0.7-1.6 [facility] CampusSpend[facility] Payments Company [id number] 04:12:00 Test Item Value Reference Range Interpretation Comments eGFR (test code = eGFR) 53 [facility] CampusSp[facility] Payments Company [id number] 04:12:00 Test Item Value Reference Range Interpretation Comments AST (test code = AST) 11 See_Comment [Auto mated message] The system which ge nerated this result transmit stuart reference range : <=37. The reference range was not used to interpr et this result as cherry l/abnormal. [facility] [employer] [id number] 04:12:00 Test Item Value Reference Range Interpretation Comments Alk Phos (test code = Alk Phos) 38 39-136 [facility] [employer] [id number] 04:12:00 Test Item Value Reference Range Interpretation Comments Bili Total (test code = Bili Total) 0.2 0.2-1.3 [facility]Sp[facility] Pay[facility] Company [id number] 04:12:00 Test Item Value Reference Range Interpretation Comments AGAP (test code = AGAP) 10.0 10.0-20.0 [facility] [employer] [id number] 04:12:00 Test Item Value Reference Range Interpretation Comments B/C Ratio (test code = B/C Ratio) 21 6-25 [facility]Sp[facility] Payments Company [id number] 04:12:00 Test Item Value Reference Range Interpretation Comments ALT (test code = ALT) 16 See_Comment [Auto mated message] The system which ge nerated this result transmit stuart reference range : <=65. The reference range was not used to interpr et this result as cherry l/abnormal. [facility]2016-11-27 04:12:00 Test Item Value Reference Range Interpretation Comments Albumin Lvl (test code = Albumin Lvl) 3.3 3.5-5.0 [facility]2016-11-27 04:12:00 Test Item Value Reference Range Interpretation Comments Calcium Lvl (test code = Calcium Lvl) 8.3 8.5-10.5 [facility]2016-11-27 04:12:00 Test Item Value Reference Range Interpretation Comments CO2 (test code = CO2) 34 24-32 [facility]2016-11-27 04:12:00 Test Item Value Reference Range Interpretation Comments Total Protein (test code = Total 6.6 6.4-8.4 Protein) [facility]2016-11-27 04:12:00 Test Item Value Reference Range Interpretation Comments Glucose Lvl (test code = Glucose Lvl) 161 70-99 [facility]2016-11-27 04:12:00 Test Item Value Reference Range Interpretation Comments Potassium Lvl (test code = Potassium 4.0 3.5-5.1 Lvl) [facility]2016-11-27 04:12:00 Test Item Value Reference Range Interpretation Comments Chloride Lvl (test code = Chloride Lvl) 99 95-109 [facility]2016-11-27 04:12:00 Test Item Value Reference Range Interpretation Comments Creatinine Lvl (test code = Creatinine 1.34 0.50-1.40 Lvl) [facility]2016-11-27 04:12:00 Test Item Value Reference Range Interpretation Comments BUN (test code = BUN) 28 7-22 [facility]2016-11-27 04:12:00 Test Item Value Reference Range Interpretation Comments Sodium Lvl (test code = Sodium Lvl) 139 135-145 [facility]JrfaoiiDBEDWBOACY5854-58-91 04:12:00 Test Item Value Reference Range Interpretation Comments Basophils # (test code 0.1 See_Comment [Aut omated message] The = Basophils #) system which generated this result tra nsmitted reference range : <=0.2. The reference r jose alfredo was not used to int erpret this result as normal/abnormal . [facility] CenterTjisiftMDVIPZNSLJ7128-44-46 04:12:00 Test Item Value Reference Range Interpretation Comments Segs-Bands # (test code = Segs-Bands #) 5.2 1.5-8.1 [facility] C[id number] 04:12:00 Test Item Value Reference Range Interpretation Comments Lymphocytes (test code = Lymphocytes) 22.2 20.0-40.0 [facility] CenterNbjwqakUIDTZMNUMG1229-34-66 04:12:00 Test Item Value Reference Range Interpretation Comments Monocytes (test code = Monocytes) 13.7 2.0-12.0 [facility] CenterNqjsrmtAMLCUYRCKC3511-22-34 04:12:00 Test Item Value Reference Range Interpretation Comments Eosinophils # (test code 0.2 See_Comment [A utomated message] The = Eosinophils #) system ic h generated this result tra nsmitted reference range : <=0.5. The reference r jose alfredo was not used to int erpret this result as normal/abnormal . [facility] CenterAzudxloKRJFLNJCZY9329-63-68 04:12:00 Test Item Value Reference Range Interpretation Comments Lymphocytes # (test code = Lymphocytes 1.9 1.0-5.5 #) [facility] CenterFatmdlvJFXROLUFLR6679-48-01 04:12:00 Test Item Value Reference Range Interpretation Comments Monocytes # (test code 1.2 See_Comment [Aut omated message] The = Monocytes #) system which generated this result tra nsmitted reference range : <=0.8. The reference r jose alfredo was not used to int erpret this result as normal/abnormal . [facility] CenterRsrpgneKMOKLEXUHM1720-90-13 04:12:00 Test Item Value Reference Range Interpretation Comments Segs (test code = Segs) 60.8 45.0-75.0 [facility] CenterDcltdppHZAIGLUMIR1839-37-42 04:12:00 Test Item Value Reference Range Interpretation Comments Eosinophils (test code = 2.7 See_Comment [A utomated message] The Eosinophils) system which ge nerated this result tra nsmitted reference range : <=4.0. The reference r jose alfredo was not used to int erpret this result as normal/abnormal . [facility] CenterBsijtuwEBNYSAEZLN0591-02-50 04:12:00 Test Item Value Reference Range Interpretation Comments Basophils (test code = 0.6 See_Comment [Aut omated message] The Basophils) system which ge nerated this result tra nsmitted reference range : <=1.0. The reference r jose alfredo was not used to int erpret this result as normal/abnormal . [facility] CenterOyfzvppISRMTTZYVX9930-51-94 04:12:00 Test Item Value Reference Range Interpretation Comments PTT (test code = PTT) 26.5 s 22.9-35.8 [facility] CenterTkgoddqRUURGWLFBH6902-77-44 04:12:00 Test Item Value Reference Range Interpretation Comments PT (test code = PT) 13.6 s 12.0-14.7 [facility] CenterAsppujdWYESZUWZQP9067-65-15 04:12:00 Test Item Value Reference Range Interpretation Comments INR (test code = INR) 1.02 0.85-1.17 [facility] CenterJokmzekLOUOAIBBOK1240-13-68 04:12:00 Test Item Value Reference Range Interpretation Comments Platelet (test code = Platelet) 181 133-450 [facility] CenterWgoespoGWVHXOIMLI9262-34-44 04:12:00 Test Item Value Reference Range Interpretation Comments MPV (test code = MPV) 10.9 7.4-10.4 [facility] CenterToayndoQSCTESJAOJ7622-43-54 04:12:00 Test Item Value Reference Range Interpretation Comments MCH (test code = MCH) 29.9 pg 27.0-31.0 [facility] CenterNaqvpgwCXFHDILPPX8347-50-80 04:12:00 Test Item Value Reference Range Interpretation Comments MCHC (test code = MCHC) 33.2 32.0-36.0 [facility] CenterNywyltbDDKDCTZFIE8316-88-02 04:12:00 Test Item Value Reference Range Interpretation Comments MCV (test code = MCV) 90.2 80.0-94.0 [facility] CenterXobjayuMUEMIQDEWC2514-29-47 04:12:00 Test Item Value Reference Range Interpretation Comments RDW (test code = RDW) 13.3 11.5-14.5 [facility] CenterVbgyzypLCVAHLZNCK0514-36-18 04:12:00 Test Item Value Reference Range Interpretation Comments Hgb (test code = Hgb) 13.4 14.0-18.0 [facility] CenterFvtgvqePAICDZFZEA3202-47-01 04:12:00 Test Item Value Reference Range Interpretation Comments Hct (test code = Hct) 40.3 42.0-54.0 [facility] [id number] 04:12:00 Test Item Value Reference Range Interpretation Comments WBC (test code = WBC) 8.5 3.7-10.4 [facility] CenterLyoeciyIRGOCMMIWB6400-99-00 04:12:00 Test Item Value Reference Range Interpretation Comments RBC (test code = RBC) 4.47 4.70-6.10 [facility] AND [id number] 04:12:00 Test Item Value Reference Range Interpretation Comments UA Bacteria (test code = None Seen (07/27/16 UA Bacteria) 10:12 PM) [facility] AND [id number] 04:12:00 Test Item Value Reference Range Interpretation Comments UA WBC (test code = UA None Seen (07/27/16 WBC) 10:12 PM) [facility] AND [id number] 04:12:00 Test Item Value Reference Range Interpretation Comments UA RBC (test None Seen See_Comment [Automated mes moises] code = UA RBC) (07/27/16 10:12 The system which PM) generated this result transmitted ref erence range: <=2. The reference range was not used to int erpret this result as normal/abnormal . [facility] AND [id number] 04:12:00 Test Item Value Reference Range Interpretation Comments UA Sq Epi (test code = UA Sq Epi) Rare /LPF [facility] AND [id number] 04:12:00 Test Item Value Reference Range Interpretation Comments UA Nitrite (test code Negative (07/27/16 = UA Nitrite) 10:12 PM) [facility] AND [id number] 04:12:00 Test Item Value Reference Range Interpretation Comments UA Leuk Est (test Negative (07/27/16 10:12 code = UA Leuk Est) PM) [facility] AND [id number] 04:12:00 Test Item Value Reference Range Interpretation Comments UA Ketones (test code = UA Negative mg/dL Ketones) [facility] AND [id number] 04:12:00 Test Item Value Reference Range Interpretation Comments UA Bili (test code = Negative *NA*(07/27/16 UA Bili) 10:12 PM) [facility] AND [id number] 04:12:00 Test Item Value Reference Range Interpretation Comments UA Blood (test code = Negative (07/27/16 10:12 UA Blood) PM) [facility] AND [id number] 04:12:00 Test Item Value Reference Range Interpretation Comments UA Urobilinogen (test code = UA 0.2 0.1-1.0 Urobilinogen) [facility] AND [id number] 04:12:00 Test Item Value Reference Range Interpretation Comments UA Spec Grav (test code = UA Spec 1.010 1 Grav) [facility] AND [id number] 04:12:00 Test Item Value Reference Range Interpretation Comments UA Color (test code = Yellow *NA*(07/27/16 UA Color) 10:12 PM) [facility] AND [id number] 04:12:00 Test Item Value Reference Range Interpretation Comments UA Turbidity (test code = Clear (07/27/16 UA Turbidity) 10:12 PM) [facility] AND [id number] 04:12:00 Test Item Value Reference Range Interpretation Comments UA pH (test code = UA pH) 7.5 1 5.0-8.0 [facility] AND [id number] 04:12:00 Test Item Value Reference Range Interpretation Comments UA Protein (test code = UA Negative mg/dL Protein) [facility] AND [id number] 04:12:00 Test Item Value Reference Range Interpretation Comments UA Glucose (test code = UA Negative mg/dL Glucose) [facility] AND [id number] 16:03:00 Test Item Value Reference Range Interpretation Comments UA Leuk Est (test Negative (05/30/16 11:03 code = UA Leuk Est) AM) [facility] AND [id number] 16:03:00 Test Item Value Reference Range Interpretation Comments UA Turbidity (test code = Clear (05/30/16 11:03 UA Turbidity) AM) [facility] AND [id number] 16:03:00 Test Item Value Reference Range Interpretation Comments UA Nitrite (test code Negative (05/30/16 11:03 = UA Nitrite) AM) [facility] AND [id number] 16:03:00 Test Item Value Reference Range Interpretation Comments UA Urobilinogen (test code = UA 0.2 0.1-1.0 Urobilinogen) [facility] AND [id number] 16:03:00 Test Item Value Reference Range Interpretation Comments UA Spec Grav (test code = UA Spec 1.015 1 Grav) [facility] AND [id number] 16:03:00 Test Item Value Reference Range Interpretation Comments UA pH (test code = UA pH) 6.0 1 5.0-8.0 [facility] AND [id number] 16:03:00 Test Item Value Reference Range Interpretation Comments UA Protein (test code Negative (05/30/16 11:03 = UA Protein) AM) [facility] AND [id number] 16:03:00 Test Item Value Reference Range Interpretation Comments UA Color (test code = Yellow *NA*(05/30/16 UA Color) 11:03 AM) [facility] AND [id number] 16:03:00 Test Item Value Reference Range Interpretation Comments UA Ketones (test code Negative *NA*(05/30/16 = UA Ketones) 11:03 AM) [facility] AND [id number] 16:03:00 Test Item Value Reference Range Interpretation Comments UA Glucose (test code Negative (05/30/16 11:03 = UA Glucose) AM) [facility] AND [id number] 16:03:00 Test Item Value Reference Range Interpretation Comments UA Blood (test code = Moderate *ABN*(05/30/16 UA Blood) 11:03 AM) [facility] AND [id number] 16:03:00 Test Item Value Reference Range Interpretation Comments UA Bili (test code = Negative *NA*(05/30/16 UA Bili) 11:03 AM) [facility] AND [id number] 16:03:00 Test Item Value Reference Range Interpretation Comments UA Sq Epi (test code = UA Sq Epi) Rare /LPF [facility] AND [id number] 16:03:00 Test Item Value Reference Range Interpretation Comments Micro? (test code = Performed (05/30/16 11:03 Micro?) AM) [facility] AND [id number] 16:03:00 Test Item Value Reference Range Interpretation Comments UA WBC (test code = UA None Seen (05/30/16 WBC) 11:03 AM) [facility] AND [id number] 16:03:00 Test Item Value Reference Range Interpretation Comments UA RBC (test None Seen See_Comment [Automated mes moises] code = UA RBC) (05/30/16 11:03 The system which AM) generated this result transmitted ref erence range: <=2. The reference range was not used to int erpret this result as normal/abnormal . [facility] AND [id number] 16:03:00 Test Item Value Reference Range Interpretation Comments UA Bacteria (test code = None Seen (05/30/16 UA Bacteria) 11:03 AM) [facility] AND [id number] 16:03:00 Test Item Value Reference Range Interpretation Comments UA Leuk Est (test Negative (05/30/16 11:03 code = UA Leuk Est) AM) [facility] AND [id number] 16:03:00 Test Item Value Reference Range Interpretation Comments UA Turbidity (test code = Clear (05/30/16 11:03 UA Turbidity) AM) [facility] AND [id number] 16:03:00 Test Item Value Reference Range Interpretation Comments UA Nitrite (test code Negative (05/30/16 11:03 = UA Nitrite) AM) [facility] AND [id number] 16:03:00 Test Item Value Reference Range Interpretation Comments UA Urobilinogen (test code = UA 0.2 0.1-1.0 Urobilinogen) [facility] AND [id number] 16:03:00 Test Item Value Reference Range Interpretation Comments UA Spec Grav (test code = UA Spec 1.015 1 Grav) [facility] AND [id number] 16:03:00 Test Item Value Reference Range Interpretation Comments UA pH (test code = UA pH) 6.0 1 5.0-8.0 [facility] AND [id number] 16:03:00 Test Item Value Reference Range Interpretation Comments UA Protein (test code Negative (05/30/16 11:03 = UA Protein) AM) [facility] AND [id number] 16:03:00 Test Item Value Reference Range Interpretation Comments UA Color (test code = Yellow *NA*(05/30/16 UA Color) 11:03 AM) [facility] [id number] 16:03:00 Test Item Value Reference Range Interpretation Comments UA Ketones (test code Negative *NA*(05/30/16 = UA Ketones) 11:03 AM) [facility] [id number] 16:03:00 Test Item Value Reference Range Interpretation Comments UA Glucose (test code Negative (05/30/16 11:03 = UA Glucose) AM) [facility] [id number] 16:03:00 Test Item Value Reference Range Interpretation Comments UA Blood (test code = Moderate *ABN*(05/30/16 UA Blood) 11:03 AM) [facility] [id number] 16:03:00 Test Item Value Reference Range Interpretation Comments UA Bili (test code = Negative *NA*(05/30/16 UA Bili) 11:03 AM) [facility] [id number] 16:03:00 Test Item Value Reference Range Interpretation Comments UA Sq Epi (test code = UA Sq Epi) Rare /LPF [facility] [id number] 16:03:00 Test Item Value Reference Range Interpretation Comments Micro? (test code = Performed (05/30/16 11:03 Micro?) AM) [facility] [id number] 16:03:00 Test Item Value Reference Range Interpretation Comments UA WBC (test code = UA None Seen (05/30/16 WBC) 11:03 AM) [facility] [id number] 16:03:00 Test Item Value Reference Range Interpretation Comments UA RBC (test None Seen See_Comment [Automated mes moises] code = UA RBC) (05/30/16 11:03 The system which AM) generated this result transmitted ref erence range: <=2. The reference range was not used to int erpret this result as normal/abnormal . [facility] [id number] 16:03:00 Test Item Value Reference Range Interpretation Comments UA Bacteria (test code = None Seen (05/30/16 UA Bacteria) 11:03 AM) [facility] [id number] 15:14:00 Test Item Value Reference Range Interpretation Comments Troponin-I (test code no gt See_Comment [Auto mated message] The = Troponin-I) system which g enerated this result transmit stuart reference range : <=0.40. The reference r jose alfredo was not used to interpr et this result as cherry l/abnormal. [facility] [id number] 15:14:00 Test Item Value Reference Range Interpretation Comments BNP (test code = BNP) 32 [facility] [id number] 15:14:00 Test Item Value Reference Range Interpretation Comments Total CK (test code = Total CK) 64 12-191 [facility]annCHE[facility] [id number] 15:14:00 Test Item Value Reference Range Interpretation Comments Lipase Lvl (test code = Lipase Lvl) 201 73-393 [facility] Campus[id number] 15:14:00 Test Item Value Reference Range Interpretation Comments AGAP (test code = AGAP) 9.2 10.0-20.0 [facility] HospitalRbosmdiQCLKRNHPZUKJ5540-04-00 15:14:00 Test Item Value Reference Range Interpretation Comments B/C Ratio (test code = B/C Ratio) 20 6-25 [facility] [id number] 15:14:00 Test Item Value Reference Range Interpretation Comments Globulin (test code = Globulin) 3.8 2.7-4.2 [facility] Hos[id number] 15:14:00 Test Item Value Reference Range Interpretation Comments A/G Ratio (test code = A/G Ratio) 0.9 0.7-1.6 [facility] HospitalMcxdzbyFVPAMMMKYOBO7447-48-52 15:14:00 Test Item Value Reference Range Interpretation Comments eGFR (test code = eGFR) 49 [facility] HospitalNvkztziPTJARBOHYURA8205-14-02 15:14:00 Test Item Value Reference Range Interpretation Comments Albumin Lvl (test code = Albumin Lvl) 3.6 3.5-5.0 [facility] HospitalEthguaoGGMDKLDLHGCU8142-32-26 15:14:00 Test Item Value Reference Range Interpretation Comments ALT (test code = ALT) 20 See_Comment [Auto mated message] The system which ge nerated this result transmit stuart reference range : <=65. The reference range was not used to interpr et this result as cherry l/abnormal. [facility]ScmbaebLCGNDRCPOTCO7230-55-39 15:14:00 Test Item Value Reference Range Interpretation Comments Alk Phos (test code = Alk Phos) 37 39-136 [facility] HospitalVvmafhjRPGQYRMRDQZZ0249-72-41 15:14:00 Test Item Value Reference Range Interpretation Comments AST (test code = AST) 14 See_Comment [Auto mated message] The system which ge nerated this result transmit stuart reference range : <=37. The reference range was not used to interpr et this result as cherry l/abnormal. [facility] HospitalCrxxvvvIGWHSLHSORIR3701-18-75 15:14:00 Test Item Value Reference Range Interpretation Comments Bili Total (test code = Bili Total) 0.3 0.2-1.3 [facility] HospitalBokwjgnTPZNYMFNPNMG2295-12-64 15:14:00 Test Item Value Reference Range Interpretation Comments Sodium Lvl (test code = Sodium Lvl) 143 135-145 [facility] HospitalLluyspmNRDVKGJTJLOV0682-08-13 15:14:00 Test Item Value Reference Range Interpretation Comments Creatinine Lvl (test code = Creatinine 1.42 0.50-1.40 Lvl) [facility] HospitalIqbztopUVDGGVVXMWJA7325-29-65 15:14:00 Test Item Value Reference Range Interpretation Comments Potassium Lvl (test code = Potassium 4.2 3.5-5.1 Lvl) [facility] HospitalMfbpurdDBGPWDWVICHK2375-11-28 15:14:00 Test Item Value Reference Range Interpretation Comments Chloride Lvl (test code = Chloride Lvl) 103 95-109 [facility] HospitalOfkeujcUKXLUSAXFCYX1265-26-75 15:14:00 Test Item Value Reference Range Interpretation Comments Calcium Lvl (test code = Calcium Lvl) 8.9 8.5-10.5 [facility] HospitalOxidgbvOAWJCPJUFBWL2640-68-85 15:14:00 Test Item Value Reference Range Interpretation Comments CO2 (test code = CO2) 35 24-32 [facility] HospitalKbjwnybBHQZJXMBKQWH8148-31-98 15:14:00 Test Item Value Reference Range Interpretation Comments Total Protein (test code = Total 7.4 6.4-8.4 Protein) [facility] HospitalCmusqrvHCDBWVKREHZW9773-06-29 15:14:00 Test Item Value Reference Range Interpretation Comments BUN (test code = BUN) 28 7-22 [facility] HospitalDoiedpdPJVKPQNIDPYA1598-59-19 15:14:00 Test Item Value Reference Range Interpretation Comments Glucose Lvl (test code = Glucose Lvl) 141 70-99 [facility] CenterKigbvfjJYHJNBMBIQ1590-81-69 15:14:00 Test Item Value Reference Range Interpretation Comments Basophils # (test code 0.1 See_Comment [Aut omated message] The = Basophils #) system which generated this result tra nsmitted reference range : <=0.2. The reference r jose alfredo was not used to int erpret this result as normal/abnormal . [facility] CenterWmiuocmMNOUKRGARL5405-24-75 15:14:00 Test Item Value Reference Range Interpretation Comments Lymphocytes # (test code = Lymphocytes 1.3 1.0-5.5 #) [facility] Cent[id number] 15:14:00 Test Item Value Reference Range Interpretation Comments Monocytes # (test code 1.1 See_Comment [Aut omated message] The = Monocytes #) system which generated this result tra nsmitted reference range : <=0.8. The reference r jose alfredo was not used to int erpret this result as normal/abnormal . [facility] CenterTpeuxbqCLQYDFHVTV5435-54-95 15:14:00 Test Item Value Reference Range Interpretation Comments Eosinophils # (test code 0.1 See_Comment [A utomated message] The = Eosinophils #) system whic h generated this result tra nsmitted reference range : <=0.5. The reference r jose alfredo was not used to int erpret this result as normal/abnormal . [facility] CenterFptspmwESOVMMFLRZ8151-94-73 15:14:00 Test Item Value Reference Range Interpretation Comments Segs-Bands # (test code = Segs-Bands #) 4.4 1.5-8.1 [facility] CenterYlckeanTXHSVBNPCE5226-87-17 15:14:00 Test Item Value Reference Range Interpretation Comments Basophils (test code = 0.9 See_Comment [Aut omated message] The Basophils) system which ge nerated this result tra nsmitted reference range : <=1.0. The reference r jose alfredo was not used to int erpret this result as normal/abnormal . [facility] CenterAstwbtxGTESZYVFLS9657-68-57 15:14:00 Test Item Value Reference Range Interpretation Comments Monocytes (test code = Monocytes) 15.3 2.0-12.0 [facility] CenterArdwnhbCKBEQINROW1741-77-70 15:14:00 Test Item Value Reference Range Interpretation Comments Eosinophils (test code = 2.1 See_Comment [A utomated message] The Eosinophils) system which ge nerated this result tra nsmitted reference range : <=4.0. The reference r jose alfredo was not used to int erpret this result as normal/abnormal . [facility] CenterKhryacuJMJNOGGLFE1599-45-92 15:14:00 Test Item Value Reference Range Interpretation Comments Lymphocytes (test code = Lymphocytes) 18.2 20.0-40.0 [facility] CenterDpglaypEIDVGFHIHS9895-22-25 15:14:00 Test Item Value Reference Range Interpretation Comments Segs (test code = Segs) 63.5 45.0-75.0 [facility] CenterGptuvdwCYLSNSIYAZ5388-32-83 15:14:00 Test Item Value Reference Range Interpretation Comments Hct (test code = Hct) 39.9 42.0-54.0 [facility] CenterZxdoehqVAEAHHFBOO9798-44-93 15:14:00 Test Item Value Reference Range Interpretation Comments MCH (test code = MCH) 30.6 pg 27.0-31.0 [facility] CenterShvsxgjOHFWWSFZYK1404-71-47 15:14:00 Test Item Value Reference Range Interpretation Comments MCV (test code = MCV) 91.2 80.0-94.0 [facility] CenterHqprevwPBILQLGFGB3989-49-87 15:14:00 Test Item Value Reference Range Interpretation Comments Hgb (test code = Hgb) 13.4 14.0-18.0 [facility] CenterAwvpuxiJEOCOXXCAN3027-76-79 15:14:00 Test Item Value Reference Range Interpretation Comments RBC (test code = RBC) 4.37 4.70-6.10 [facility] CenterFyndgyrXSAWIWSGRY6060-50-22 15:14:00 Test Item Value Reference Range Interpretation Comments WBC (test code = WBC) 6.9 3.7-10.4 [facility] CenterKzsacfdONYYCPQURG8201-72-02 15:14:00 Test Item Value Reference Range Interpretation Comments Platelet (test code = Platelet) 174 133-450 [facility] CenterHefdypoHRFZHHNUFI5901-08-95 15:14:00 Test Item Value Reference Range Interpretation Comments MPV (test code = MPV) 10.3 7.4-10.4 [facility] CenterQbjkglqJMQYZDGHZI4182-50-23 15:14:00 Test Item Value Reference Range Interpretation Comments MCHC (test code = MCHC) 33.6 32.0-36.0 [facility] CenterRdqivgdUMATUMHQDS3891-53-41 15:14:00 Test Item Value Reference Range Interpretation Comments RDW (test code = RDW) 13.8 11.5-14.5 [facility] TelefonicaannCARBoxbeAC MIPFKBL6057-47-26 15:14:00 Test Item Value Reference Range Interpretation Comments Troponin-I (test code no gt See_Comment [Auto mated message] The = Troponin-I) system which g enerated this result transmit stuart reference range : <=0.40. The reference r jose alfredo was not used to interpr et this result as cherry l/abnormal. [facility]1000jobboersen.deCARBoxbeAC TDHBBDB7008-64-60 15:14:00 Test Item Value Reference Range Interpretation Comments BNP (test code = BNP) 32 [facility] CampusARE Telecom & WindAC QZOKKSZ8529-13-96 15:14:00 Test Item Value Reference Range Interpretation Comments Total CK (test code = Total CK) 64 12-191 [facility] MaimaibaoCHEM OSRIA3010-11-00 15:14:00 Test Item Value Reference Range Interpretation Comments Lipase Lvl (test code = Lipase Lvl) 201 73-393 [facility] CampusOahzlmoSWJQSBSAONRI2881-05-47 15:14:00 Test Item Value Reference Range Interpretation Comments AGAP (test code = AGAP) 9.2 10.0-20.0 [facility] CampusDfaoopqVUBFNLZNFZRY1157-90-65 15:14:00 Test Item Value Reference Range Interpretation Comments B/C Ratio (test code = B/C Ratio) 20 6-25 [facility] CampusAqgkmpuTFTJDYIAOVNP2608-07-87 15:14:00 Test Item Value Reference Range Interpretation Comments Globulin (test code = Globulin) 3.8 2.7-4.2 [facility] CampusVfzdshcCFSUFAGWNZDO3711-34-05 15:14:00 Test Item Value Reference Range Interpretation Comments A/G Ratio (test code = A/G Ratio) 0.9 0.7-1.6 [facility] CampusYrnbsayQBDWPIGHJKVV1988-02-54 15:14:00 Test Item Value Reference Range Interpretation Comments eGFR (test code = eGFR) 49 [facility] CampusDlkjkuzXCUVENISIIBC2014-36-17 15:14:00 Test Item Value Reference Range Interpretation Comments Albumin Lvl (test code = Albumin Lvl) 3.6 3.5-5.0 [facility] CampusUhfjpfuGOVJTNOLPGCV3267-12-52 15:14:00 Test Item Value Reference Range Interpretation Comments ALT (test code = ALT) 20 See_Comment [Auto mated message] The system which ge nerated this result transmit stuart reference range : <=65. The reference range was not used to interpr et this result as cherry l/abnormal. [facility] HospitalNmqarsvOYEZMRXVCEKU5574-92-70 15:14:00 Test Item Value Reference Range Interpretation Comments Alk Phos (test code = Alk Phos) 37 39-136 [facility] HospitalKdpqvyxJMWDSVILDJMZ9498-21-53 15:14:00 Test Item Value Reference Range Interpretation Comments AST (test code = AST) 14 See_Comment [Auto mated message] The system which ge nerated this result transmit stuart reference range : <=37. The reference range was not used to interpr et this result as cherry l/abnormal. [facility] HospitalFnaifofVZLLJVSKTEQS6055-47-69 15:14:00 Test Item Value Reference Range Interpretation Comments Bili Total (test code = Bili Total) 0.3 0.2-1.3 [facility] HospitalBbkcxscWVLIBUWJZYTA2343-18-29 15:14:00 Test Item Value Reference Range Interpretation Comments Sodium Lvl (test code = Sodium Lvl) 143 135-145 [facility] HospitalPxbmkbwSBQZSPBPBFRJ8490-79-95 15:14:00 Test Item Value Reference Range Interpretation Comments Creatinine Lvl (test code = Creatinine 1.42 0.50-1.40 Lvl) [facility] HospitalBjnctyqFAREDMKPHESC5357-55-36 15:14:00 Test Item Value Reference Range Interpretation Comments Potassium Lvl (test code = Potassium 4.2 3.5-5.1 Lvl) [facility] HospitalNtjkwmiORXRGHHXOARJ3661-07-35 15:14:00 Test Item Value Reference Range Interpretation Comments Chloride Lvl (test code = Chloride Lvl) 103 95-109 [facility] HospitalPeqcrzoRDDOSHCDQZKX0805-66-43 15:14:00 Test Item Value Reference Range Interpretation Comments Calcium Lvl (test code = Calcium Lvl) 8.9 8.5-10.5 [facility] HospitalMteeuzpWIKOFYPATGTQ8324-46-04 15:14:00 Test Item Value Reference Range Interpretation Comments CO2 (test code = CO2) 35 24-32 [facility] HospitalFqxxaaqERNNOWYDOKUS6720-53-48 15:14:00 Test Item Value Reference Range Interpretation Comments Total Protein (test code = Total 7.4 6.4-8.4 Protein) [facility] HospitalHkoatzvJJVYHAAACXDT9128-96-28 15:14:00 Test Item Value Reference Range Interpretation Comments BUN (test code = BUN) 28 7-22 [facility] HospitalJsjeyirGIEQFRVCFNDC2489-12-39 15:14:00 Test Item Value Reference Range Interpretation Comments Glucose Lvl (test code = Glucose Lvl) 141 70-99 [facility] CenterNwfsfujFOIVQEDVQQ6378-46-40 15:14:00 Test Item Value Reference Range Interpretation Comments Basophils # (test code 0.1 See_Comment [Aut omated message] The = Basophils #) system which generated this result tra nsmitted reference range : <=0.2. The reference r jose alfredo was not used to int erpret this result as normal/abnormal . [facility] CenterMafizxpVSBLBLUZNT2649-47-70 15:14:00 Test Item Value Reference Range Interpretation Comments Lymphocytes # (test code = Lymphocytes 1.3 1.0-5.5 #) [facility] CenterLssbejcZCDUSVEIRO2396-25-14 15:14:00 Test Item Value Reference Range Interpretation Comments Monocytes # (test code 1.1 See_Comment [Aut omated message] The = Monocytes #) system which generated this result tra nsmitted reference range : <=0.8. The reference r jose alfredo was not used to int erpret this result as normal/abnormal . [facility] CenterIunuurpMLMVVPRMXM2092-38-99 15:14:00 Test Item Value Reference Range Interpretation Comments Eosinophils # (test code 0.1 See_Comment [A utomated message] The = Eosinophils #) system whic h generated this result tra nsmitted reference range : <=0.5. The reference r jose alfredo was not used to int erpret this result as normal/abnormal . [facility] CenterSdjbyisPBWUSXCSSB7190-59-60 15:14:00 Test Item Value Reference Range Interpretation Comments Segs-Bands # (test code = Segs-Bands #) 4.4 1.5-8.1 [facility] CenterZhbzmbsVMVNUKTQOD7244-00-95 15:14:00 Test Item Value Reference Range Interpretation Comments Basophils (test code = 0.9 See_Comment [Aut omated message] The Basophils) system which ge nerated this result tra nsmitted reference range : <=1.0. The reference r jose alfredo was not used to int erpret this result as normal/abnormal . [facility] CenterYlbhcthHOWFEMXFNE0579-69-76 15:14:00 Test Item Value Reference Range Interpretation Comments Monocytes (test code = Monocytes) 15.3 2.0-12.0 [facility] CenterEqvkzurNRLVTHPLSS3891-77-28 15:14:00 Test Item Value Reference Range Interpretation Comments Eosinophils (test code = 2.1 See_Comment [A utomated message] The Eosinophils) system which ge nerated this result tra nsmitted reference range : <=4.0. The reference r jose alfredo was not used to int erpret this result as normal/abnormal . [facility] CenterQjkzlzfOIGASBINWT0200-98-52 15:14:00 Test Item Value Reference Range Interpretation Comments Lymphocytes (test code = Lymphocytes) 18.2 20.0-40.0 [facility] CenterJibgoieZWJMFFKWEA3206-75-86 15:14:00 Test Item Value Reference Range Interpretation Comments Segs (test code = Segs) 63.5 45.0-75.0 [facility] CenterTabjclqYIQOJSFUHN3639-29-57 15:14:00 Test Item Value Reference Range Interpretation Comments Hct (test code = Hct) 39.9 42.0-54.0 [facility] CenterSqigergQTVELTJBPP8959-47-03 15:14:00 Test Item Value Reference Range Interpretation Comments MCH (test code = MCH) 30.6 pg 27.0-31.0 [facility] CenterYwsfbiaLJHDBJKNUZ2270-88-92 15:14:00 Test Item Value Reference Range Interpretation Comments MCV (test code = MCV) 91.2 80.0-94.0 [facility] CenterBuukavnXOZFAVTIAQ0713-77-56 15:14:00 Test Item Value Reference Range Interpretation Comments Hgb (test code = Hgb) 13.4 14.0-18.0 [facility] CenterGgajuztJJFFAXVQDO6918-39-16 15:14:00 Test Item Value Reference Range Interpretation Comments RBC (test code = RBC) 4.37 4.70-6.10 [facility] CenterCfndpixGWWVEYYGWI8094-90-03 15:14:00 Test Item Value Reference Range Interpretation Comments WBC (test code = WBC) 6.9 3.7-10.4 [facility] CenterPnwapqmUTSFEXNDXX1780-51-61 15:14:00 Test Item Value Reference Range Interpretation Comments Platelet (test code = Platelet) 174 133-450 [facility] CenterRnzhapdGOBMPBAYWS6531-46-49 15:14:00 Test Item Value Reference Range Interpretation Comments MPV (test code = MPV) 10.3 7.4-10.4 [facility] CenterXhkbhqsOKKENNNBVY4337-82-90 15:14:00 Test Item Value Reference Range Interpretation Comments MCHC (test code = MCHC) 33.6 32.0-36.0 [facility] CenterCqcoqcrSICTDLBGNT5925-24-22 15:14:00 Test Item Value Reference Range Interpretation Comments RDW (test code = RDW) 13.8 11.5-14.5 [facility]2015-06-21 10:00:00 Test Item Value Reference Range Interpretation Comments Magnesium Lvl (test code = Magnesium 1.6 1.8-2.4 Lvl) [facility] HospitalKjsuwrhXXFEATPXIFWE5658-72-78 10:00:00 Test Item Value Reference Range Interpretation Comments AGAP (test code = AGAP) 8.5 10.0-20.0 [facility] HospitalEjywvetHRAAYERLGVTC4652-15-33 10:00:00 Test Item Value Reference Range Interpretation Comments eGFR (test code = eGFR) 86 [facility] HospitalOyhkelbNBJPNYGOWWUA6037-97-14 10:00:00 Test Item Value Reference Range Interpretation Comments Sodium Lvl (test code = Sodium Lvl) 137 135-145 [facility] HospitalSivpisqRMVKQBTXKFRA0258-87-87 10:00:00 Test Item Value Reference Range Interpretation Comments Potassium Lvl (test code = Potassium 3.5 3.5-5.1 Lvl) [facility] HospitalMzshswsRAYKLLPTJBTP6116-46-89 10:00:00 Test Item Value Reference Range Interpretation Comments Calcium Lvl (test code = Calcium Lvl) 8.4 8.5-10.5 [facility] HospitalZcvijjtIEUCJKCPNYFN0887-22-19 10:00:00 Test Item Value Reference Range Interpretation Comments CO2 (test code = CO2) 30 24-32 [facility] HospitalQkyjsjpUZGMHJVIYZTP7540-10-15 10:00:00 Test Item Value Reference Range Interpretation Comments Chloride Lvl (test code = Chloride Lvl) 102 95-109 [facility] HospitalVcuqiurWUPVLMWDZCLY3959-29-96 10:00:00 Test Item Value Reference Range Interpretation Comments Creatinine Lvl (test code = Creatinine 0.9 0.5-1.4 Lvl) [facility] HospitalBadfwmmCPLRHFIMHQKJ7232-40-50 10:00:00 Test Item Value Reference Range Interpretation Comments Glucose Lvl (test code = Glucose Lvl) 127 70-99 [facility]KeijhtuZAPIXZDBMOYJ0289-41-18 10:00:00 Test Item Value Reference Range Interpretation Comments BUN (test code = BUN) 9 7-22 [facility] CenterMrgjdjeKPZSNVXHTV8908-77-15 10:00:00 Test Item Value Reference Range Interpretation Comments Basophils # (test code 0.1 See_Comment [Aut omated message] The = Basophils #) system which generated this result tra nsmitted reference range : <=0.2. The reference r jose alfredo was not used to int erpret this result as normal/abnormal . [facility] CenterEpqdxkvUNQLWNILQB9484-10-69 10:00:00 Test Item Value Reference Range Interpretation Comments Eosinophils # (test code 0.1 See_Comment [A utomated message] The = Eosinophils #) system whic h generated this result tra nsmitted reference range : <=0.5. The reference r jose alfredo was not used to int erpret this result as normal/abnormal . [facility] CenterCywntawYEACYEQAQT6039-80-35 10:00:00 Test Item Value Reference Range Interpretation Comments Monocytes # (test code 0.9 See_Comment [Aut omated message] The = Monocytes #) system which generated this result tra nsmitted reference range : <=0.8. The reference r jose alfredo was not used to int erpret this result as normal/abnormal . [facility] CenterUefzxjdOCCHEQBSRK8899-93-42 10:00:00 Test Item Value Reference Range Interpretation Comments Lymphocytes # (test code = Lymphocytes 2.0 1.0-5.5 #) [facility] CenterXimgtyiEGPRNVQDTX3747-22-53 10:00:00 Test Item Value Reference Range Interpretation Comments Segs (test code = Segs) 59.5 45.0-75.0 [facility] CenterXubluxtYAMGWOJOQI9404-91-90 10:00:00 Test Item Value Reference Range Interpretation Comments Lymphocytes (test code = Lymphocytes) 25.6 20.0-40.0 [facility] CenterRlcchzjYSCBOHVBIJ0375-76-65 10:00:00 Test Item Value Reference Range Interpretation Comments Basophils (test code = 1.6 See_Comment [Aut omated message] The Basophils) system which ge nerated this result tra nsmitted reference range : <=1.0. The reference r jose alfredo was not used to int erpret this result as normal/abnormal . [facility] CenterAahvrmeKVFURNTVIG6573-14-10 10:00:00 Test Item Value Reference Range Interpretation Comments Eosinophils (test code = 1.2 See_Comment [A utomated message] The Eosinophils) system which ge nerated this result tra nsmitted reference range : <=4.0. The reference r jose alfredo was not used to int erpret this result as normal/abnormal . [facility] CenterGgwjkjkWODLFOGEJP6414-22-72 10:00:00 Test Item Value Reference Range Interpretation Comments Segs-Bands # (test code = Segs-Bands #) 4.6 1.5-8.1 [facility] CenterDqhhqlkYMJBOHYACR8509-23-35 10:00:00 Test Item Value Reference Range Interpretation Comments Monocytes (test code = Monocytes) 12.1 2.0-12.0 [facility] CenterDhfaidfPSKQYHDPDZ9208-32-08 10:00:00 Test Item Value Reference Range Interpretation Comments MCH (test code = MCH) 30.5 pg 27.0-31.0 [facility] CenterQtofezoAMASTZZRWC5191-58-44 10:00:00 Test Item Value Reference Range Interpretation Comments MCHC (test code = MCHC) 34.0 32.0-36.0 [facility] CenterUsczfhmQYZNPZIOEX1097-51-77 10:00:00 Test Item Value Reference Range Interpretation Comments RDW (test code = RDW) 13.3 11.5-14.5 [facility] CenterLepzcdpBTNQYYKBLK0125-12-51 10:00:00 Test Item Value Reference Range Interpretation Comments Hct (test code = Hct) 31.0 42.0-54.0 [facility] CenterDwisnvpMPCVSJGZCS4445-56-10 10:00:00 Test Item Value Reference Range Interpretation Comments MCV (test code = MCV) 89.6 80.0-94.0 [facility] CenterUnvaaveGIJYLMQJKV1232-77-26 10:00:00 Test Item Value Reference Range Interpretation Comments MPV (test code = MPV) 9.4 7.4-10.4 [facility] CenterBmdnovkRLNTYLDIAD2106-01-76 10:00:00 Test Item Value Reference Range Interpretation Comments Platelet (test code = Platelet) 188 133-450 [facility] CenterYddfpkbMKYLODBTGY7890-52-46 10:00:00 Test Item Value Reference Range Interpretation Comments Hgb (test code = Hgb) 10.5 14.0-18.0 [facility] CenterZlqloziIQZCTJHYFR4011-97-40 10:00:00 Test Item Value Reference Range Interpretation Comments WBC (test code = WBC) 7.7 3.7-10.4 [facility]NbuubhvRBZEHGUORY9850-15-00 10:00:00 Test Item Value Reference Range Interpretation Comments RBC (test code = RBC) 3.46 4.70-6.10 [facility]CHE[facility] MXUPC7160-18-25 10:00:00 Test Item Value Reference Range Interpretation Comments Magnesium Lvl (test code = Magnesium 1.6 1.8-2.4 Lvl) [facility] HospitalBbrftmxPWGHXFBUOBTA4266-55-28 10:00:00 Test Item Value Reference Range Interpretation Comments AGAP (test code = AGAP) 8.5 10.0-20.0 [facility] HospitalWitvyugWLMCXTTEKHTZ1881-13-05 10:00:00 Test Item Value Reference Range Interpretation Comments eGFR (test code = eGFR) 86 [facility] HospitalUumheqcVPJOQDPZRCKE4368-43-83 10:00:00 Test Item Value Reference Range Interpretation Comments Sodium Lvl (test code = Sodium Lvl) 137 135-145 [facility] HospitalKpzqojwMIFBCKEPEJDZ3824-89-85 10:00:00 Test Item Value Reference Range Interpretation Comments Potassium Lvl (test code = Potassium 3.5 3.5-5.1 Lvl) [facility] HospitalAhpuyygEWVJDMDPLNLD9329-80-13 10:00:00 Test Item Value Reference Range Interpretation Comments Calcium Lvl (test code = Calcium Lvl) 8.4 8.5-10.5 [facility] HospitalHkznistJOVFQBQUDTTQ3666-20-25 10:00:00 Test Item Value Reference Range Interpretation Comments CO2 (test code = CO2) 30 24-32 [facility] HospitalNnoydhnRTKHNJOJZEMS0133-48-23 10:00:00 Test Item Value Reference Range Interpretation Comments Chloride Lvl (test code = Chloride Lvl) 102 95-109 [facility] HospitalWawkuzjXXGXXPARLRTE8187-82-30 10:00:00 Test Item Value Reference Range Interpretation Comments Creatinine Lvl (test code = Creatinine 0.9 0.5-1.4 Lvl) [facility] HospitalZhppkiuSHOZDIBUPUFB4046-35-85 10:00:00 Test Item Value Reference Range Interpretation Comments Glucose Lvl (test code = Glucose Lvl) 127 70-99 [facility] HospitalEamhfwiPDLHJZBTHOHQ5266-47-74 10:00:00 Test Item Value Reference Range Interpretation Comments BUN (test code = BUN) 9 7-22 [facility] CenterBiwuuwmMQIELOTKQU9949-32-56 10:00:00 Test Item Value Reference Range Interpretation Comments Basophils # (test code 0.1 See_Comment [Aut omated message] The = Basophils #) system which generated this result tra nsmitted reference range : <=0.2. The reference r jose alfredo was not used to int erpret this result as normal/abnormal . [facility] CenterFcivpatDAAXJVYCLF9210-20-27 10:00:00 Test Item Value Reference Range Interpretation Comments Eosinophils # (test code 0.1 See_Comment [A utomated message] The = Eosinophils #) system whic h generated this result tra nsmitted reference range : <=0.5. The reference r jose alfredo was not used to int erpret this result as normal/abnormal . [facility] CenterPncblvaSWRQOGLYWD6085-01-84 10:00:00 Test Item Value Reference Range Interpretation Comments Monocytes # (test code 0.9 See_Comment [Aut omated message] The = Monocytes #) system which generated this result tra nsmitted reference range : <=0.8. The reference r jose alfredo was not used to int erpret this result as normal/abnormal . [facility] CenterNfsxtpwHODZTNQNCM4202-75-64 10:00:00 Test Item Value Reference Range Interpretation Comments Lymphocytes # (test code = Lymphocytes 2.0 1.0-5.5 #) [facility] CenterYghbefkCLXSMKTPYX5626-11-22 10:00:00 Test Item Value Reference Range Interpretation Comments Segs (test code = Segs) 59.5 45.0-75.0 [facility] CenterIlmzahbOHYLFPAGLJ8002-57-03 10:00:00 Test Item Value Reference Range Interpretation Comments Lymphocytes (test code = Lymphocytes) 25.6 20.0-40.0 [facility] CenterUttqkmgLOUGOJZQRV3269-56-02 10:00:00 Test Item Value Reference Range Interpretation Comments Basophils (test code = 1.6 See_Comment [Aut omated message] The Basophils) system which ge nerated this result tra nsmitted reference range : <=1.0. The reference r jose alfredo was not used to int erpret this result as normal/abnormal . [facility] CenterGbtztrlZSUTJWJYIT5667-98-65 10:00:00 Test Item Value Reference Range Interpretation Comments Eosinophils (test code = 1.2 See_Comment [A utomated message] The Eosinophils) system which ge nerated this result tra nsmitted reference range : <=4.0. The reference r jose alfredo was not used to int erpret this result as normal/abnormal . [facility] CenterElkcnpcGYFROCPMEZ8982-47-62 10:00:00 Test Item Value Reference Range Interpretation Comments Segs-Bands # (test code = Segs-Bands #) 4.6 1.5-8.1 [facility] CenterMvamakwKVOVIVXXUY9876-20-39 10:00:00 Test Item Value Reference Range Interpretation Comments Monocytes (test code = Monocytes) 12.1 2.0-12.0 [facility] CenterQvsxwlnGNVUPNNISK4550-07-56 10:00:00 Test Item Value Reference Range Interpretation Comments MCH (test code = MCH) 30.5 pg 27.0-31.0 [facility] CenterLcrvhnrMVTIEUYQSE7144-94-69 10:00:00 Test Item Value Reference Range Interpretation Comments MCHC (test code = MCHC) 34.0 32.0-36.0 [facility] CenterIctoqqmODTXDQKMWX4221-95-57 10:00:00 Test Item Value Reference Range Interpretation Comments RDW (test code = RDW) 13.3 11.5-14.5 [facility] CenterPpxyerzLSGBFWGSPE3342-75-22 10:00:00 Test Item Value Reference Range Interpretation Comments Hct (test code = Hct) 31.0 42.0-54.0 [facility] CenterNzxpckjRYJELQGAOD5554-39-22 10:00:00 Test Item Value Reference Range Interpretation Comments MCV (test code = MCV) 89.6 80.0-94.0 [facility] CenterCzyqdlzLRSAXLJJMD6971-22-68 10:00:00 Test Item Value Reference Range Interpretation Comments MPV (test code = MPV) 9.4 7.4-10.4 [facility] CenterEpvflxzMEYETVTWET9941-03-71 10:00:00 Test Item Value Reference Range Interpretation Comments Platelet (test code = Platelet) 188 133-450 [facility] CenterReyiaupCQCCBUXGCK5363-96-02 10:00:00 Test Item Value Reference Range Interpretation Comments Hgb (test code = Hgb) 10.5 14.0-18.0 [facility] CenterXiicphyBWNZUCFGLP0635-27-37 10:00:00 Test Item Value Reference Range Interpretation Comments WBC (test code = WBC) 7.7 3.7-10.4 [facility] CenterScwddcbACBSICINJH7265-43-81 10:00:00 Test Item Value Reference Range Interpretation Comments RBC (test code = RBC) 3.46 4.70-6.10 [facility]2015-06-20 14:44:00 Test Item Value Reference Range Interpretation Comments Lactic Acid Lvl (test code = Lactic 1.4 0.5-2.2 Acid Lvl) [facility] HospitalYthebpbCEBZRBDDYJHL8242-87-82 14:44:00 Test Item Value Reference Range Interpretation Comments Sodium Lvl (test code = Sodium Lvl) 133 135-145 [facility]2015-06-20 14:44:00 Test Item Value Reference Range Interpretation Comments Lactic Acid Lvl (test code = Lactic 1.4 0.5-2.2 Acid Lvl) [facility] HospitalScaiimqJVJLYXUQDCGD2676-69-39 14:44:00 Test Item Value Reference Range Interpretation Comments Sodium Lvl (test code = Sodium Lvl) 133 135-145 [facility]2015-06-20 09:05:00 Test Item Value Reference Range Interpretation Comments B/C Ratio (test code = B/C Ratio) 11 6-25 [facility]2015-06-20 09:05:00 Test Item Value Reference Range Interpretation Comments A/G Ratio (test code = A/G Ratio) 1.0 0.7-1.6 [facility]2015-06-20 09:05:00 Test Item Value Reference Range Interpretation Comments Globulin (test code = Globulin) 3.3 2.0-4.0 [facility]2015-06-20 09:05:00 Test Item Value Reference Range Interpretation Comments AGAP (test code = AGAP) 9.5 10.0-20.0 [facility]2015-06-20 09:05:00 Test Item Value Reference Range Interpretation Comments eGFR (test code = eGFR) 76 [facility]2015-06-20 09:05:00 Test Item Value Reference Range Interpretation Comments Sodium Lvl (test code = Sodium Lvl) 129 135-145 [facility]2015-06-20 09:05:00 Test Item Value Reference Range Interpretation Comments Bili Total (test code = Bili Total) 0.7 0.2-1.3 [facility]2015-06-20 09:05:00 Test Item Value Reference Range Interpretation Comments AST (test code = AST) 31 See_Comment [Auto mated message] The system which ge nerated this result transmit stuart reference range : <=37. The reference range was not used to interpr et this result as cherry l/abnormal. [facility]2015-06-20 09:05:00 Test Item Value Reference Range Interpretation Comments ALT (test code = ALT) 25 See_Comment [Auto mated message] The system which ge nerated this result transmit stuart reference range : <=65. The reference range was not used to interpr et this result as cherry l/abnormal. [facility]2015-06-20 09:05:00 Test Item Value Reference Range Interpretation Comments Alk Phos (test code = Alk Phos) 32 39-136 [facility]2015-06-20 09:05:00 Test Item Value Reference Range Interpretation Comments Total Protein (test code = Total 6.5 6.4-8.4 Protein) [facility]2015-06-20 09:05:00 Test Item Value Reference Range Interpretation Comments Potassium Lvl (test code = Potassium 3.5 3.5-5.1 Lvl) [facility]2015-06-20 09:05:00 Test Item Value Reference Range Interpretation Comments Albumin Lvl (test code = Albumin Lvl) 3.2 3.5-5.0 [facility]2015-06-20 09:05:00 Test Item Value Reference Range Interpretation Comments CO2 (test code = CO2) 28 24-32 [facility]2015-06-20 09:05:00 Test Item Value Reference Range Interpretation Comments Chloride Lvl (test code = Chloride Lvl) 95 95-109 [facility]2015-06-20 09:05:00 Test Item Value Reference Range Interpretation Comments Calcium Lvl (test code = Calcium Lvl) 8.2 8.5-10.5 [facility]1000jobboersen.deATRIUM HEALTH WAKE FOREST BAP[facility] WIL[facility] CENTERGBDXM3530-01-40 09:05:00 Test Item Value Reference Range Interpretation Comments Glucose Lvl (test code = Glucose Lvl) 147 70-99 [facility]2015-06-20 09:05:00 Test Item Value Reference Range Interpretation Comments Creatinine Lvl (test code = Creatinine 1.0 0.5-1.4 Lvl) [facility]2015-06-20 09:05:00 Test Item Value Reference Range Interpretation Comments BUN (test code = BUN) 11 7- [facility] HospitalXvwoteuKMLJXKOWCAZS2030-74-52 09:05:00 Test Item Value Reference Range Interpretation Comments AGAP (test code = AGAP) 10.5 10.0-20.0 [facility] HospitalZqnmxlyFODPUUDFINXQ7846-49-32 09:05:00 Test Item Value Reference Range Interpretation Comments Calcium Lvl (test code = Calcium Lvl) 8.4 8.5-10.5 [facility] HospitalTexzpcoWPFYQGKWLJOI6994-92-18 09:05:00 Test Item Value Reference Range Interpretation Comments CO2 (test code = CO2) 27 24-32 [facility] HospitalHsnxnyvCEPYRYHPKUZE4593-92-70 09:05:00 Test Item Value Reference Range Interpretation Comments Chloride Lvl (test code = Chloride Lvl) 96 95-109 [facility] HospitalHzpopabNDCQKOWBUOTO9320-58-94 09:05:00 Test Item Value Reference Range Interpretation Comments eGFR (test code = eGFR) 76 [facility] HospitalSwblmdiKTRKUDPYXNJA5175-96-65 09:05:00 Test Item Value Reference Range Interpretation Comments Potassium Lvl (test code = Potassium 3.5 3.5-5.1 Lvl) [facility] HospitalIxhrnyxQMRBIMMEWVWU0666-46-39 09:05:00 Test Item Value Reference Range Interpretation Comments Sodium Lvl (test code = Sodium Lvl) 130 135-145 [facility] HospitalSraojnkEEXEXULBGCXY3477-88-44 09:05:00 Test Item Value Reference Range Interpretation Comments Creatinine Lvl (test code = Creatinine 1.0 0.5-1.4 Lvl) [facility] HospitalZgzrfslJLPRFNJRJBRQ5252-75-76 09:05:00 Test Item Value Reference Range Interpretation Comments BUN (test code = BUN) 11 - [facility] HospitalVzouhinJVJNKLAOBCOK1190-07-63 09:05:00 Test Item Value Reference Range Interpretation Comments Glucose Lvl (test code = Glucose Lvl) 145 70-99 [facility] CenterMipapjdVNRTTKZXON9136-57-49 09:05:00 Test Item Value Reference Range Interpretation Comments Lymphocytes (test code = Lymphocytes) 12.7 20.0-40.0 [facility] CenterEjayjvvMGEDVLVMRC2536-22-39 09:05:00 Test Item Value Reference Range Interpretation Comments Segs (test code = Segs) 74.1 45.0-75.0 [facility] CenterElolsbwCPDKBQMZFS8676-27-73 09:05:00 Test Item Value Reference Range Interpretation Comments Monocytes (test code = Monocytes) 12.6 2.0-12.0 [facility] CenterPpkdjmnBLXZWDTKSC6878-28-75 09:05:00 Test Item Value Reference Range Interpretation Comments Monocytes # (test code 1.6 See_Comment [Aut omated message] The = Monocytes #) system which generated this result tra nsmitted reference range : <=0.8. The reference r jose alfredo was not used to int erpret this result as normal/abnormal . [facility] CenterPlmdwseXGXQNGPHCQ5310-91-77 09:05:00 Test Item Value Reference Range Interpretation Comments Lymphocytes # (test code = Lymphocytes 1.6 1.0-5.5 #) [facility] CenterGbqtormYHVNPPKPPQ9685-64-17 09:05:00 Test Item Value Reference Range Interpretation Comments Basophils (test code = 0.2 See_Comment [Aut omated message] The Basophils) system which ge nerated this result tra nsmitted reference range : <=1.0. The reference r jose alfredo was not used to int erpret this result as normal/abnormal . [facility] CenterNciibulBGRQTCNPAO0067-34-14 09:05:00 Test Item Value Reference Range Interpretation Comments Eosinophils (test code = 0.4 See_Comment [A utomated message] The Eosinophils) system which ge nerated this result tra nsmitted reference range : <=4.0. The reference r jose alfredo was not used to int erpret this result as normal/abnormal . [facility] CenterXjukbvvTDATASBJDN5208-30-74 09:05:00 Test Item Value Reference Range Interpretation Comments Segs-Bands # (test code = Segs-Bands #) 9.6 1.5-8.1 [facility] CenterDpfisbwEYFXKRUVRT2700-31-79 09:05:00 Test Item Value Reference Range Interpretation Comments Eosinophils # (test code 0.1 See_Comment [A utomated message] The = Eosinophils #) system whic h generated this result tra nsmitted reference range : <=0.5. The reference r jose alfredo was not used to int erpret this result as normal/abnormal . [facility] CenterOnincgqIJZSDLXNDM1500-27-54 09:05:00 Test Item Value Reference Range Interpretation Comments RBC (test code = RBC) 3.97 4.70-6.10 [facility] CenterVbfyejsWEIEYSWHTJ7982-63-61 09:05:00 Test Item Value Reference Range Interpretation Comments WBC (test code = WBC) 13.0 3.7-10.4 [facility] CenterTvuiikkIRQVCHTJIU9957-00-69 09:05:00 Test Item Value Reference Range Interpretation Comments MPV (test code = MPV) 9.7 7.4-10.4 [facility] CenterRmqtvehZDRTEYJSDH1872-38-59 09:05:00 Test Item Value Reference Range Interpretation Comments RDW (test code = RDW) 13.1 11.5-14.5 [facility] CenterJaaqhsqVFDHIISREQ6208-59-28 09:05:00 Test Item Value Reference Range Interpretation Comments Platelet (test code = Platelet) 202 133-450 [facility] CenterHlraqiqMUVJALRTYK1366-99-55 09:05:00 Test Item Value Reference Range Interpretation Comments Hct (test code = Hct) 34.8 42.0-54.0 [facility] CenterAsijhthPFBMUTKBLB0201-61-75 09:05:00 Test Item Value Reference Range Interpretation Comments MCV (test code = MCV) 87.8 80.0-94.0 [facility] CenterMozkxvhTMZJUIWXZN7024-63-47 09:05:00 Test Item Value Reference Range Interpretation Comments Hgb (test code = Hgb) 11.9 14.0-18.0 [facility] CenterObnmdakKBCIIQBWIU0588-67-90 09:05:00 Test Item Value Reference Range Interpretation Comments MCH (test code = MCH) 30.1 pg 27.0-31.0 [facility] CenterNxmybdwSZJWEVHBCW6138-60-29 09:05:00 Test Item Value Reference Range Interpretation Comments MCHC (test code = MCHC) 34.3 32.0-36.0 [facility]2015-06-20 09:05:00 Test Item Value Reference Range Interpretation Comments B/C Ratio (test code = B/C Ratio) 11 6-25 [facility]2015-06-20 09:05:00 Test Item Value Reference Range Interpretation Comments A/G Ratio (test code = A/G Ratio) 1.0 0.7-1.6 [facility]2015-06-20 09:05:00 Test Item Value Reference Range Interpretation Comments Globulin (test code = Globulin) 3.3 2.0-4.0 [facility]2015-06-20 09:05:00 Test Item Value Reference Range Interpretation Comments AGAP (test code = AGAP) 9.5 10.0-20.0 [facility]2015-06-20 09:05:00 Test Item Value Reference Range Interpretation Comments eGFR (test code = eGFR) 76 [facility]2015-06-20 09:05:00 Test Item Value Reference Range Interpretation Comments Sodium Lvl (test code = Sodium Lvl) 129 135-145 [facility]2015-06-20 09:05:00 Test Item Value Reference Range Interpretation Comments Bili Total (test code = Bili Total) 0.7 0.2-1.3 [facility]2015-06-20 09:05:00 Test Item Value Reference Range Interpretation Comments AST (test code = AST) 31 See_Comment [Auto mated message] The system which ge nerated this result transmit stuart reference range : <=37. The reference range was not used to interpr et this result as cherry l/abnormal. [facility]2015-06-20 09:05:00 Test Item Value Reference Range Interpretation Comments ALT (test code = ALT) 25 See_Comment [Auto mated message] The system which ge nerated this result transmit stuart reference range : <=65. The reference range was not used to interpr et this result as cherry l/abnormal. [facility]2015-06-20 09:05:00 Test Item Value Reference Range Interpretation Comments Alk Phos (test code = Alk Phos) 32 39-136 [facility]2015-06-20 09:05:00 Test Item Value Reference Range Interpretation Comments Total Protein (test code = Total 6.5 6.4-8.4 Protein) [facility]2015-06-20 09:05:00 Test Item Value Reference Range Interpretation Comments Potassium Lvl (test code = Potassium 3.5 3.5-5.1 Lvl) [facility]2015-06-20 09:05:00 Test Item Value Reference Range Interpretation Comments Albumin Lvl (test code = Albumin Lvl) 3.2 3.5-5.0 [facility]2015-06-20 09:05:00 Test Item Value Reference Range Interpretation Comments CO2 (test code = CO2) 28 24-32 [place]755-06-20 09:05:00 Test Item Value Reference Range Interpretation Comments Chloride Lvl (test code = Chloride Lvl) 95 95-109 [facility]2015-06-20 09:05:00 Test Item Value Reference Range Interpretation Comments Calcium Lvl (test code = Calcium Lvl) 8.2 8.5-10.5 [facility]2015-06-20 09:05:00 Test Item Value Reference Range Interpretation Comments Glucose Lvl (test code = Glucose Lvl) 147 70-99 [facility]2015-06-20 09:05:00 Test Item Value Reference Range Interpretation Comments Creatinine Lvl (test code = Creatinine 1.0 0.5-1.4 Lvl) [facility]2015-06-20 09:05:00 Test Item Value Reference Range Interpretation Comments BUN (test code = BUN) 11 7-22 [facility]JsadzvsKKAEBPLWCSFI9912-92-09 09:05:00 Test Item Value Reference Range Interpretation Comments AGAP (test code = AGAP) 10.5 10.0-20.0 [facility] HospitalZnfjvgbZMJVZMXVBNRR4040-44-79 09:05:00 Test Item Value Reference Range Interpretation Comments Calcium Lvl (test code = Calcium Lvl) 8.4 8.5-10.5 [facility] HospitalCxvxbbdTIAIGIMGOLTB5511-01-18 09:05:00 Test Item Value Reference Range Interpretation Comments CO2 (test code = CO2) 27 24-32 [facility] HospitalSjpolbtSABLUITPOIWS4235-72-74 09:05:00 Test Item Value Reference Range Interpretation Comments Chloride Lvl (test code = Chloride Lvl) 96 95-109 [facility] HospitalTzxbflaULFMEYACOYTM2322-41-80 09:05:00 Test Item Value Reference Range Interpretation Comments eGFR (test code = eGFR) 76 [facility] HospitalLgoomamWYJCFWEZJUPR2914-36-80 09:05:00 Test Item Value Reference Range Interpretation Comments Potassium Lvl (test code = Potassium 3.5 3.5-5.1 Lvl) [facility] HospitalXcclpkvHGUBSQZSSCUT2263-35-81 09:05:00 Test Item Value Reference Range Interpretation Comments Sodium Lvl (test code = Sodium Lvl) 130 135-145 [facility] HospitalBfmltqeHETYKZIWXHOD8283-58-90 09:05:00 Test Item Value Reference Range Interpretation Comments Creatinine Lvl (test code = Creatinine 1.0 0.5-1.4 Lvl) [facility] HospitalBakdcjzRDREAKWENDBA1115-19-35 09:05:00 Test Item Value Reference Range Interpretation Comments BUN (test code = BUN) 11 7-22 [facility] HospitalCgshbhcHYROVYFOYWUR6014-67-35 09:05:00 Test Item Value Reference Range Interpretation Comments Glucose Lvl (test code = Glucose Lvl) 145 70-99 [facility] CenterFuirpetWIQWRFNTIT9662-59-19 09:05:00 Test Item Value Reference Range Interpretation Comments Lymphocytes (test code = Lymphocytes) 12.7 20.0-40.0 [facility] CenterEclomkrVZCATNVYJM8438-77-60 09:05:00 Test Item Value Reference Range Interpretation Comments Segs (test code = Segs) 74.1 45.0-75.0 [facility] CenterCsdrculFCLJAFJKXI9058-10-54 09:05:00 Test Item Value Reference Range Interpretation Comments Monocytes (test code = Monocytes) 12.6 2.0-12.0 [facility] CenterJeyqxznYFLFSIHOFY0644-82-79 09:05:00 Test Item Value Reference Range Interpretation Comments Monocytes # (test code 1.6 See_Comment [Aut omated message] The = Monocytes #) system which generated this result tra nsmitted reference range : <=0.8. The reference r jose alfredo was not used to int erpret this result as normal/abnormal . [facility] CenterDmsipkzVFIBNBDTGW3717-49-99 09:05:00 Test Item Value Reference Range Interpretation Comments Lymphocytes # (test code = Lymphocytes 1.6 1.0-5.5 #) [facility] CenterTlmbjijFBKYDYJNKW1485-34-95 09:05:00 Test Item Value Reference Range Interpretation Comments Basophils (test code = 0.2 See_Comment [Aut omated message] The Basophils) system which ge nerated this result tra nsmitted reference range : <=1.0. The reference r jose alfredo was not used to int erpret this result as normal/abnormal . [facility] CenterHmuqyuiTREEKWXVKF2877-77-96 09:05:00 Test Item Value Reference Range Interpretation Comments Eosinophils (test code = 0.4 See_Comment [A utomated message] The Eosinophils) system which ge nerated this result tra nsmitted reference range : <=4.0. The reference r jose alfredo was not used to int erpret this result as normal/abnormal . [facility] CenterPxoftxcOJACCBFHCT0620-31-53 09:05:00 Test Item Value Reference Range Interpretation Comments Segs-Bands # (test code = Segs-Bands #) 9.6 1.5-8.1 [facility] CenterMenhnftPVQZFYSRQB0580-87-87 09:05:00 Test Item Value Reference Range Interpretation Comments Eosinophils # (test code 0.1 See_Comment [A utomated message] The = Eosinophils #) system [employer] h generated this result tra nsmitted reference range : <=0.5. The reference r jose alfredo was not used to int erpret this result as normal/abnormal . [facility] CenterUunxcfzBYNLLRZPNU0227-26-12 09:05:00 Test Item Value Reference Range Interpretation Comments RBC (test code = RBC) 3.97 4.70-6.10 [facility] CenterWywrfddLOZXLMULKF9401-06-92 09:05:00 Test Item Value Reference Range Interpretation Comments WBC (test code = WBC) 13.0 3.7-10.4 [facility] CenterCmjmycmMCZSXQNGIA8711-16-03 09:05:00 Test Item Value Reference Range Interpretation Comments MPV (test code = MPV) 9.7 7.4-10.4 [facility] CenterQjqlivqFORRDWWCJR3454-12-88 09:05:00 Test Item Value Reference Range Interpretation Comments RDW (test code = RDW) 13.1 11.5-14.5 [facility] CenterDjkidzeWIOIKSNCYC2792-81-46 09:05:00 Test Item Value Reference Range Interpretation Comments Platelet (test code = Platelet) 202 133-450 [facility] CenterJzidwdgSIGDDBQLPG9830-71-08 09:05:00 Test Item Value Reference Range Interpretation Comments Hct (test code = Hct) 34.8 42.0-54.0 [facility] CenterShqrtfeHBBYPUXPIJ0180-00-79 09:05:00 Test Item Value Reference Range Interpretation Comments MCV (test code = MCV) 87.8 80.0-94.0 [facility] CenterSropnlvVQSLTVJSCO3982-53-71 09:05:00 Test Item Value Reference Range Interpretation Comments Hgb (test code = Hgb) 11.9 14.0-18.0 [facility] CenterCyqkmiyPPHNDOMBJU8040-96-49 09:05:00 Test Item Value Reference Range Interpretation Comments MCH (test code = MCH) 30.1 pg 27.0-31.0 [facility] CenterHmonfezESTCGFFIKH5349-25-86 09:05:00 Test Item Value Reference Range Interpretation Comments MCHC (test code = MCHC) 34.3 32.0-36.0 [facility]annCHEM JMJUP4752-21-57 05:11:00 Test Item Value Reference Range Interpretation Comments Lactic Acid Lvl (test code = Lactic 1.1 0.5-2.2 Acid Lvl) [facility] CenterQqzrdhcEWICNQ3715-57-40 05:11:00 Test Item Value Reference Range Interpretation Comments VLDL (test code = VLDL) 14 [facility]TavhiwcFPFKJC8704-77-13 05:11:00 Test Item Value Reference Range Interpretation Comments LDL (Calculated) (test code = LDL 25 (Calculated)) [facility] CenterPvuoliyQPHOLI8758-77-72 05:11:00 Test Item Value Reference Range Interpretation Comments Chol (test code = Chol) 91 [facility] CenterIfwghbdOOWTSY9125-82-24 05:11:00 Test Item Value Reference Range Interpretation Comments CHD Risk (test code = CHD Risk) 1.75 4.00-7.30 [facility] CenterAgfsdruTUFEYS6629-34-64 05:11:00 Test Item Value Reference Range Interpretation Comments HDL (test code = HDL) 52 [facility] CenterDzwtinvVYVRWE9194-46-64 05:11:00 Test Item Value Reference Range Interpretation Comments Trig (test code = Trig) 71 [facility] HospitalTHYROID [id number] 05:11:00 Test Item Value Reference Range Interpretation Comments TSH (test code = TSH) 1.790 0.360-3.740 [facility]CHEM [id number] 05:11:00 Test Item Value Reference Range Interpretation Comments Lactic Acid Lvl (test code = Lactic 1.1 0.5-2.2 Acid Lvl) [facility] CenterNwhxqyjUDCCHO1798-61-30 05:11:00 Test Item Value Reference Range Interpretation Comments VLDL (test code = VLDL) 14 [facility] CenterQywsupoSJHNHL1190-06-86 05:11:00 Test Item Value Reference Range Interpretation Comments LDL (Calculated) (test code = LDL 25 (Calculated)) [facility] CenterKkhxfdfXTOKRR2278-34-38 05:11:00 Test Item Value Reference Range Interpretation Comments Chol (test code = Chol) 91 [facility] CenterEmzvufnKUITXQ8352-80-28 05:11:00 Test Item Value Reference Range Interpretation Comments CHD Risk (test code = CHD Risk) 1.75 4.00-7.30 [facility] CampusNpyylbuBGXKOT5018-08-86 05:11:00 Test Item Value Reference Range Interpretation Comments HDL (test code = HDL) 52 [facility] CampusYggfukzBZTUZV6858-05-26 05:11:00 Test Item Value Reference Range Interpretation Comments Trig (test code = Trig) 71 [facility]annTHYROID [id number] 05:11:00 Test Item Value Reference Range Interpretation Comments TSH (test code = TSH) 1.790 0.360-3.740 [facility]annBACTERIAL - [id number] 00:29:00 Test Item Value Reference Range Interpretation Comments MRSA by PCR (test Negative 16(02/17/15 7:29 code = MRSA by PCR) PM) [facility]annBACTERIAL - PYFRFXWV1527-02-41 00:29:00 Test Item Value Reference Range Interpretation Comments MRSA by PCR (test Negative 16(02/17/15 7:29 code = MRSA by PCR) PM) [facility]CHE[facility] [id number] 00:28:00 Test Item Value Reference Range Interpretation Comments Lactic Acid Lvl (test code = Lactic 1.0 0.5-2.2 Acid Lvl) [facility] CampusQipiztoBLYPKPRGQZ8610-55-37 00:28:00 Test Item Value Reference Range Interpretation Comments Platelet (test code = Platelet) 193 133-450 [facility] HospitalVsllbfkYPOOXKZZXD1116-56-65 00:28:00 Test Item Value Reference Range Interpretation Comments PTT (test code = PTT) 25.3 s 22.9-35.8 [facility]annCHEM [id number] 00:28:00 Test Item Value Reference Range Interpretation Comments Lactic Acid Lvl (test code = Lactic 1.0 0.5-2.2 Acid Lvl) [facility] CampusPlhjijoWWRGDADJUB1076-14-83 00:28:00 Test Item Value Reference Range Interpretation Comments Platelet (test code = Platelet) 193 133-450 [facility] HospitalMfensysMNUSVCNGPK5187-37-62 00:28:00 Test Item Value Reference Range Interpretation Comments PTT (test code = PTT) 25.3 s 22.9-35.8 [facility]annDRUG [id number] 21:40:00 Test Item Value Reference Range Interpretation Comments UDS Note (test code = See Note 8(02/17/15 4:40 UDS Note) PM) [facility] [id number] 21:40:00 Test Item Value Reference Range Interpretation Comments U Phencyc Scr (test Negative *NA*(02/17/15 code = U Phencyc Scr) 4:40 PM) [facility] [id number] 21:40:00 Test Item Value Reference Range Interpretation Comments U Opiate Scr (test Negative *NA*(02/17/15 code = U Opiate Scr) 4:40 PM) [facility] [id number] 21:40:00 Test Item Value Reference Range Interpretation Comments U Cannab Scr (test Negative *NA*(02/17/15 code = U Cannab Scr) 4:40 PM) [facility] [id number] 21:40:00 Test Item Value Reference Range Interpretation Comments U Cocaine Scr (test Positive *ABN*(02/17/15 code = U Cocaine Scr) 4:40 PM) [facility] [id number] 21:40:00 Test Item Value Reference Range Interpretation Comments U Benzodia Scr (test Negative *NA*(02/17/15 code = U Benzodia Scr) 4:40 PM) [facility] [id number] 21:40:00 Test Item Value Reference Range Interpretation Comments U Marilee Scr (test code Negative *NA*(02/17/15 = U Marilee Scr) 4:40 PM) [facility] [id number] 21:40:00 Test Item Value Reference Range Interpretation Comments U Amph Scr (test code Negative *NA*(02/17/15 = U Amph Scr) 4:40 PM) [facility] [id number] 21:40:00 Test Item Value Reference Range Interpretation Comments UA Blood (test code = Negative (02/17/15 4:40 UA Blood) PM) [facility] [id number] 21:40:00 Test Item Value Reference Range Interpretation Comments UA Glucose (test code = UA >=1000 mg/dL Glucose) [facility] [id number] 21:40:00 Test Item Value Reference Range Interpretation Comments UA Bili (test code = Negative *NA*(02/17/15 UA Bili) 4:40 PM) [facility] [id number] 21:40:00 Test Item Value Reference Range Interpretation Comments UA Color (test code = Yellow *NA*(02/17/15 UA Color) 4:40 PM) [facility] AND [id number] 21:40:00 Test Item Value Reference Range Interpretation Comments UA Spec Grav (test code = UA Spec 1.010 1 Grav) [facility] AND [id number] 21:40:00 Test Item Value Reference Range Interpretation Comments UA Turbidity (test code = Clear (02/17/15 4:40 UA Turbidity) PM) [facility] AND [id number] 21:40:00 Test Item Value Reference Range Interpretation Comments UA pH (test code = UA pH) 6.0 1 5.0-8.0 [facility] AND [id number] 21:40:00 Test Item Value Reference Range Interpretation Comments UA Leuk Est (test Negative (02/17/15 4:40 code = UA Leuk Est) PM) [facility] AND [id number] 21:40:00 Test Item Value Reference Range Interpretation Comments UA Nitrite (test code Negative (02/17/15 4:40 = UA Nitrite) PM) [facility] AND [id number] 21:40:00 Test Item Value Reference Range Interpretation Comments UA Urobilinogen (test code = UA 0.2 0.1-1.0 Urobilinogen) [facility] AND [id number] 21:40:00 Test Item Value Reference Range Interpretation Comments UA Ketones (test code = UA Negative mg/dL Ketones) [facility] AND [id number] 21:40:00 Test Item Value Reference Range Interpretation Comments UA Protein (test code = UA Negative mg/dL Protein) [facility] AND [id number] 21:40:00 Test Item Value Reference Range Interpretation Comments UA RBC (test code = 0-2 /HPF See_Comment [Automa stuart message] The UA RBC) system which ge nerated this result tra nsmitted reference range : <=2. The reference range was not used to interpr et this result as cherry l/abnormal. [facility] AND [id number] 21:40:00 Test Item Value Reference Range Interpretation Comments UA Bacteria (test code = UA Few /HPF Bacteria) [facility] [id number] 21:40:00 Test Item Value Reference Range Interpretation Comments UA Sq Epi (test code = UA Sq Epi) Few /LPF [facility] [id number] 21:40:00 Test Item Value Reference Range Interpretation Comments UA WBC (test code = UA WBC) 0-2 /HPF [facility] [id number] 21:40:00 Test Item Value Reference Range Interpretation Comments UDS Note (test code = See Note 8(02/17/15 4:40 UDS Note) PM) [facility] [id number] 21:40:00 Test Item Value Reference Range Interpretation Comments U Phencyc Scr (test Negative *NA*(02/17/15 code = U Phencyc Scr) 4:40 PM) [facility] [id number] 21:40:00 Test Item Value Reference Range Interpretation Comments U Opiate Scr (test Negative *NA*(02/17/15 code = U Opiate Scr) 4:40 PM) [facility] [id number] 21:40:00 Test Item Value Reference Range Interpretation Comments U Cannab Scr (test Negative *NA*(02/17/15 code = U Cannab Scr) 4:40 PM) [facility] [id number] 21:40:00 Test Item Value Reference Range Interpretation Comments U Cocaine Scr (test Positive *ABN*(02/17/15 code = U Cocaine Scr) 4:40 PM) [facility] [id number] 21:40:00 Test Item Value Reference Range Interpretation Comments U Benzodia Scr (test Negative *NA*(02/17/15 code = U Benzodia Scr) 4:40 PM) [facility] [id number] 21:40:00 Test Item Value Reference Range Interpretation Comments U Marilee Scr (test code Negative *NA*(02/17/15 = U Marilee Scr) 4:40 PM) [facility] [id number] 21:40:00 Test Item Value Reference Range Interpretation Comments U Amph Scr (test code Negative *NA*(02/17/15 = U Amph Scr) 4:40 PM) [facility] [id number] 21:40:00 Test Item Value Reference Range Interpretation Comments UA Blood (test code = Negative (02/17/15 4:40 UA Blood) PM) [facility] AND [id number] 21:40:00 Test Item Value Reference Range Interpretation Comments UA Glucose (test code = UA >=1000 mg/dL Glucose) [facility] AND [id number] 21:40:00 Test Item Value Reference Range Interpretation Comments UA Bili (test code = Negative *NA*(02/17/15 UA Bili) 4:40 PM) [facility] AND [id number] 21:40:00 Test Item Value Reference Range Interpretation Comments UA Color (test code = Yellow *NA*(02/17/15 UA Color) 4:40 PM) [facility] AND [id number] 21:40:00 Test Item Value Reference Range Interpretation Comments UA Spec Grav (test code = UA Spec 1.010 1 Grav) [facility] AND [id number] 21:40:00 Test Item Value Reference Range Interpretation Comments UA Turbidity (test code = Clear (02/17/15 4:40 UA Turbidity) PM) [facility] AND [id number] 21:40:00 Test Item Value Reference Range Interpretation Comments UA pH (test code = UA pH) 6.0 1 5.0-8.0 [facility] AND [id number] 21:40:00 Test Item Value Reference Range Interpretation Comments UA Leuk Est (test Negative (02/17/15 4:40 code = UA Leuk Est) PM) [facility] AND [id number] 21:40:00 Test Item Value Reference Range Interpretation Comments UA Nitrite (test code Negative (02/17/15 4:40 = UA Nitrite) PM) [facility] AND [id number] 21:40:00 Test Item Value Reference Range Interpretation Comments UA Urobilinogen (test code = UA 0.2 0.1-1.0 Urobilinogen) [facility] AND [id number] 21:40:00 Test Item Value Reference Range Interpretation Comments UA Ketones (test code = UA Negative mg/dL Ketones) [facility] AND [id number] 21:40:00 Test Item Value Reference Range Interpretation Comments UA Protein (test code = UA Negative mg/dL Protein) [facility] AND [id number] 21:40:00 Test Item Value Reference Range Interpretation Comments UA RBC (test code = 0-2 /HPF See_Comment [Automa stuart message] The UA RBC) system which ge nerated this result tra nsmitted reference range : <=2. The reference range was not used to interpr et this result as cherry l/abnormal. [facility] AND [id number] 21:40:00 Test Item Value Reference Range Interpretation Comments UA Bacteria (test code = UA Few /HPF Bacteria) [facility] AND [id number] 21:40:00 Test Item Value Reference Range Interpretation Comments UA Sq Epi (test code = UA Sq Epi) Few /LPF [facility] AND [id number] 21:40:00 Test Item Value Reference Range Interpretation Comments UA WBC (test code = UA WBC) 0-2 /HPF [facility] [id number] 21:12:00 Test Item Value Reference Range Interpretation Comments Osmolality (test code = Osmolality) 255 280-300 [facility] [id number] 21:12:00 Test Item Value Reference Range Interpretation Comments Osmolality (test code = Osmolality) 255 280-300 [facility]2015-06-19 20:00:00 Test Item Value Reference Range Interpretation Comments U Sodium (test code = U Sodium) 53 [facility]2015-06-19 20:00:00 Test Item Value Reference Range Interpretation Comments U Osmolality (test code = U Osmolality) 344 300-800 [facility]2015-06-19 20:00:00 Test Item Value Reference Range Interpretation Comments U Creatinine (test code = U Creatinine) 36.2 [facility]2015-06-19 20:00:00 Test Item Value Reference Range Interpretation Comments U Chloride (test code = U Chloride) 72 [facility]2015-06-19 20:00:00 Test Item Value Reference Range Interpretation Comments U Sodium (test code = U Sodium) 53 [facility]2015-06-19 20:00:00 Test Item Value Reference Range Interpretation Comments U Osmolality (test code = U Osmolality) 344 300-800 [facility]2015-06-19 20:00:00 Test Item Value Reference Range Interpretation Comments U Creatinine (test code = U Creatinine) 36.2 [facility] [id number] 20:00:00 Test Item Value Reference Range Interpretation Comments U Chloride (test code = U Chloride) 72 [facility] [id number] 16:09:00 Test Item Value Reference Range Interpretation Comments CK MB (test code = CK MB) 7.2 0.5-3.6 [facility] [id number] 16:09:00 Test Item Value Reference Range Interpretation Comments BNP (test code = BNP) 92 [facility] [id number] 16:09:00 Test Item Value Reference Range Interpretation Comments Total CK (test code = Total CK) 493 12-191 [facility] HermannCARDIAC [id number] 16:09:00 Test Item Value Reference Range Interpretation Comments CK MB Index (test 1.5 See_Comment [Automate d message] The code = CK MB Index) system w hic generated this result transmit stuart reference range : <=2.5. The reference range was not used to interpr et this result as cherry l/abnormal. [facility] [id number] 16:09:00 Test Item Value Reference Range Interpretation Comments Troponin-I (test code 0.11 See_Comment [Auto mated message] The = Troponin-I) system which g enerated this result transmit stuart reference range : <=0.40. The reference r jose alfredo was not used to interpr et this result as cherry l/abnormal. [facility]aibaoCHEM [id number] 16:09:00 Test Item Value Reference Range Interpretation Comments Procalcitonin Lvl <0.05 ng/mL See_Comment [Automate d message] (test code = The system whic h Procalcitonin Lvl) generated this result transmit stuart reference range : <=0.10. The reference range was not used to interpret this result as normal/abnormal . [facility]annCHEM [id number] 16:09:00 Test Item Value Reference Range Interpretation Comments Bili Total (test code = Bili Total) 0.7 0.2-1.3 [facility] [id number] 16:09:00 Test Item Value Reference Range Interpretation Comments AST (test code = AST) 28 See_Comment [Auto mated message] The system which ge nerated this result transmit stuart reference range : <=37. The reference range was not used to interpr et this result as cherry l/abnormal. [employer] [id number] 16:09:00 Test Item Value Reference Range Interpretation Comments Globulin (test code = Globulin) 3.5 2.0-4.0 [employer]2015-06-19 16:09:00 Test Item Value Reference Range Interpretation Comments Total Protein (test code = Total 7.3 6.4-8.4 Protein) [facility] [employer]2015-06-19 16:09:00 Test Item Value Reference Range Interpretation Comments Albumin Lvl (test code = Albumin Lvl) 3.8 3.5-5.0 [employer] [id number] 16:09:00 Test Item Value Reference Range Interpretation Comments Alk Phos (test code = Alk Phos) 38 39-136 [facility] [employer]2015-06-19 16:09:00 Test Item Value Reference Range Interpretation Comments ALT (test code = ALT) 24 See_Comment [Auto mated message] The system which ge nerated this result transmit stuart reference range : <=65. The reference range was not used to interpr et this result as cherry l/abnormal. [employer]2015-06-19 16:09:00 Test Item Value Reference Range Interpretation Comments A/G Ratio (test code = A/G Ratio) 1.1 0.7-1.6 [employer]2015-06-19 16:09:00 Test Item Value Reference Range Interpretation Comments B/C Ratio (test code = B/C Ratio) 11 6-25 [facility] [employer]2015-06-19 16:09:00 Test Item Value Reference Range Interpretation Comments CK MB (test code = CK MB) 7.2 0.5-3.6 [employer]2015-06-19 16:09:00 Test Item Value Reference Range Interpretation Comments BNP (test code = BNP) 92 [facility] [employer]2015-06-19 16:09:00 Test Item Value Reference Range Interpretation Comments Total CK (test code = Total CK) 493 12-191 [facility] [employer]2015-06-19 16:09:00 Test Item Value Reference Range Interpretation Comments CK MB Index (test 1.5 See_Comment [Automate d message] The code = CK MB Index) system w hich generated this result transmit stuart reference range : <=2.5. The reference range was not used to interpr et this result as cherry l/abnormal. [facility]1000jobboersen.deCARDIAC [id number] 16:09:00 Test Item Value Reference Range Interpretation Comments Troponin-I (test code 0.11 See_Comment [Auto mated message] The = Troponin-I) system which g enerated this result transmit stuart reference range : <=0.40. The reference r jose alfredo was not used to interpr et this result as cherry l/abnormal. [facility] [employer] [id number] 16:09:00 Test Item Value Reference Range Interpretation Comments Procalcitonin Lvl <0.05 ng/mL See_Comment [Automate d message] (test code = The system whic h Procalcitonin Lvl) generated this result transmit stuart reference range : <=0.10. The reference range was not used to interpret this result as normal/abnormal . [facility] [employer] [id number] 16:09:00 Test Item Value Reference Range Interpretation Comments Bili Total (test code = Bili Total) 0.7 0.2-1.3 [facility] [employer] [id number] 16:09:00 Test Item Value Reference Range Interpretation Comments AST (test code = AST) 28 See_Comment [Auto mated message] The system which ge nerated this result transmit stuart reference range : <=37. The reference range was not used to interpr et this result as cherry l/abnormal. [facility] [employer] [id number] 16:09:00 Test Item Value Reference Range Interpretation Comments Globulin (test code = Globulin) 3.5 2.0-4.0 [facility] [employer] [id number] 16:09:00 Test Item Value Reference Range Interpretation Comments Total Protein (test code = Total 7.3 6.4-8.4 Protein) [facility] [employer] [id number] 16:09:00 Test Item Value Reference Range Interpretation Comments Albumin Lvl (test code = Albumin Lvl) 3.8 3.5-5.0 [facility]2015-06-19 16:09:00 Test Item Value Reference Range Interpretation Comments Alk Phos (test code = Alk Phos) 38 39-136 [facility]2015-06-19 16:09:00 Test Item Value Reference Range Interpretation Comments ALT (test code = ALT) 24 See_Comment [Auto mated message] The system which ge nerated this result transmit stuart reference range : <=65. The reference range was not used to interpr et this result as cherry l/abnormal. [facility]2015-06-19 16:09:00 Test Item Value Reference Range Interpretation Comments A/G Ratio (test code = A/G Ratio) 1.1 0.7-1.6 [facility]2015-06-19 16:09:00 Test Item Value Reference Range Interpretation Comments B/C Ratio (test code = B/C Ratio) 11 6-25 [facility] CenterVjvvgaqIBYVKBGKYV1509-57-12 15:08:00 Test Item Value Reference Range Interpretation Comments Basophils # (test code 0.1 See_Comment [Aut omated message] The = Basophils #) system which generated this result tra nsmitted reference range : <=0.2. The reference r jose alfredo was not used to int erpret this result as normal/abnormal . [facility] CenterZwzgybmKUASJAWIOU4577-17-43 15:08:00 Test Item Value Reference Range Interpretation Comments Segs-Bands # (test code = Segs-Bands #) 10.7 1.5-8.1 [facility] CenterAwvkpctZFFHRMYNAD9825-35-52 15:08:00 Test Item Value Reference Range Interpretation Comments Lymphocytes # (test code = Lymphocytes 1.2 1.0-5.5 #) [facility] CenterSxuunohIOLRLYPLTC7261-76-17 15:08:00 Test Item Value Reference Range Interpretation Comments Monocytes # (test code 1.5 See_Comment [Aut omated message] The = Monocytes #) system which generated this result tra nsmitted reference range : <=0.8. The reference r jose alfredo was not used to int erpret this result as normal/abnormal . [facility] CenterVlabiteFCFTWJAPOD9802-60-75 15:08:00 Test Item Value Reference Range Interpretation Comments Segs (test code = Segs) 79.6 45.0-75.0 [place] [id number] 15:08:00 Test Item Value Reference Range Interpretation Comments Lymphocytes (test code = Lymphocytes) 8.8 20.0-40.0 [facility] CenterUdhmvfxESLYAKFGLU6012-00-79 15:08:00 Test Item Value Reference Range Interpretation Comments Monocytes (test code = Monocytes) 10.8 2.0-12.0 [facility] CenterVmjwzcuPVXNGCDOIN5821-15-56 15:08:00 Test Item Value Reference Range Interpretation Comments Basophils (test code = 0.5 See_Comment [Aut omated message] The Basophils) system which ge nerated this result tra nsmitted reference range : <=1.0. The reference r jose alfredo was not used to int erpret this result as normal/abnormal . [facility] CenterLinedevBTNWWYPVES8438-46-87 15:08:00 Test Item Value Reference Range Interpretation Comments Eosinophils (test code = 0.3 See_Comment [A utomated message] The Eosinophils) system which ge nerated this result tra nsmitted reference range : <=4.0. The reference r jose alfredo was not used to int erpret this result as normal/abnormal . [facility] CenterZjiowcdZPUSBOORMK2203-10-07 15:08:00 Test Item Value Reference Range Interpretation Comments PT (test code = PT) 13.3 s 12.0-14.7 [facility] CenterKkzxlfhEFWMXYIXPO7662-87-82 15:08:00 Test Item Value Reference Range Interpretation Comments PTT (test code = PTT) 26.3 s 22.9-35.8 [facility] CenterPwmojmhBQKHTFESWD6870-66-74 15:08:00 Test Item Value Reference Range Interpretation Comments INR (test code = INR) 1.01 0.85-1.17 [facility] CenterUhxsmudOHMPNITZFP3286-45-36 15:08:00 Test Item Value Reference Range Interpretation Comments MCHC (test code = MCHC) 33.5 32.0-36.0 [facility] CenterYsykzrvOFTZMFTRCD9144-97-31 15:08:00 Test Item Value Reference Range Interpretation Comments RDW (test code = RDW) 13.0 11.5-14.5 [facility] CenterRywwtpgUDDOKDBLLW7657-17-02 15:08:00 Test Item Value Reference Range Interpretation Comments Hct (test code = Hct) 39.1 42.0-54.0 [facility] CenterZamyprmOSEMQKAQCE9131-16-07 15:08:00 Test Item Value Reference Range Interpretation Comments WBC (test code = WBC) 13.5 3.7-10.4 [facility]wbuwcmFHPUEHGPDO8637-16-10 15:08:00 Test Item Value Reference Range Interpretation Comments MCV (test code = MCV) 90.1 80.0-94.0 [facility]ZnmlkwfYGJDDJFJJO2902-78-18 15:08:00 Test Item Value Reference Range Interpretation Comments MCH (test code = MCH) 30.2 pg 27.0-31.0 [facility] HospitalOkyvzghCLHCORNFSY9103-37-13 15:08:00 Test Item Value Reference Range Interpretation Comments MPV (test code = MPV) 9.5 7.4-10.4 [facility] HospitalYdxlaioSUZPARDLDR1380-37-10 15:08:00 Test Item Value Reference Range Interpretation Comments RBC (test code = RBC) 4.34 4.70-6.10 [facility] HospitalYmybgnuJGTOKRZULC9003-85-43 15:08:00 Test Item Value Reference Range Interpretation Comments Hgb (test code = Hgb) 13.1 14.0-18.0 [facility] HospitalHcezpuxGTPKMUQBVW8114-03-59 15:08:00 Test Item Value Reference Range Interpretation Comments Etoh (%) (test code = Etoh (%)) no gt [facility] VdjpymvTHOUFORARE6356-47-27 15:08:00 Test Item Value Reference Range Interpretation Comments Ethanol Lvl (test code = Ethanol Lvl) no gt [facility] [id number] 15:08:00 Test Item Value Reference Range Interpretation Comments UA Ketones (test code Negative *NA*(02/17/15 = UA Ketones) 10:08 AM) [facility] [id number] 15:08:00 Test Item Value Reference Range Interpretation Comments UA Bili (test code = Negative *NA*(02/17/15 UA Bili) 10:08 AM) [facility] [id number] 15:08:00 Test Item Value Reference Range Interpretation Comments UA Urobilinogen (test code = UA 0.2 0.1-1.0 Urobilinogen) [facility] [id number] 15:08:00 Test Item Value Reference Range Interpretation Comments UA Blood (test code = Negative (02/17/15 10:08 UA Blood) AM) [facility] [id number] 15:08:00 Test Item Value Reference Range Interpretation Comments UA Nitrite (test code Negative (02/17/15 10:08 = UA Nitrite) AM) [facility] AND [id number] 15:08:00 Test Item Value Reference Range Interpretation Comments UA Leuk Est (test Negative (02/17/15 10:08 code = UA Leuk Est) AM) [facility] AND [id number] 15:08:00 Test Item Value Reference Range Interpretation Comments UA Spec Grav (test *NA*(02/17/15 10:08 AM) code = UA Spec Grav) [facility] AND [id number] 15:08:00 Test Item Value Reference Range Interpretation Comments UA Glucose (test code = UA Glucose) 100 mg/dL [facility] AND [id number] 15:08:00 Test Item Value Reference Range Interpretation Comments UA Protein (test code Negative (02/17/15 10:08 = UA Protein) AM) [facility] AND [id number] 15:08:00 Test Item Value Reference Range Interpretation Comments UA pH (test code = UA pH) 7.0 1 5.0-8.0 [facility] AND [id number] 15:08:00 Test Item Value Reference Range Interpretation Comments UA Color (test code = Yellow *NA*(02/17/15 UA Color) 10:08 AM) [facility] AND [id number] 15:08:00 Test Item Value Reference Range Interpretation Comments UA Turbidity (test code = Clear (02/17/15 10:08 UA Turbidity) AM) [facility] AND [id number] 15:08:00 Test Item Value Reference Range Interpretation Comments UA WBC (test code = UA None Seen (02/17/15 WBC) 10:08 AM) [facility] AND [id number] 15:08:00 Test Item Value Reference Range Interpretation Comments UA RBC (test None Seen See_Comment [Automated mes moises] code = UA RBC) (02/17/15 10:08 The system which AM) generated this result transmitted ref erence range: <=2. The reference range was not used to int erpret this result as normal/abnormal . [facility] AND [id number] 15:08:00 Test Item Value Reference Range Interpretation Comments UA Bacteria (test code = None Seen (02/17/15 UA Bacteria) 10:08 AM) [facility] AND [id number] 15:08:00 Test Item Value Reference Range Interpretation Comments UA Sq Epi (test code = None Seen (02/17/15 UA Sq Epi) 10:08 AM) [facility] CenterCrdgltsIRWFMAQMGR4071-19-46 15:08:00 Test Item Value Reference Range Interpretation Comments Basophils # (test code 0.1 See_Comment [Aut omated message] The = Basophils #) system which generated this result tra nsmitted reference range : <=0.2. The reference r jose alfredo was not used to int erpret this result as normal/abnormal . [facility] CenterYcdxzqfCJETKZACBI2824-06-22 15:08:00 Test Item Value Reference Range Interpretation Comments Segs-Bands # (test code = Segs-Bands #) 10.7 1.5-8.1 [facility] CenterHsvrnftNMXQMJHJFZ4743-28-88 15:08:00 Test Item Value Reference Range Interpretation Comments Lymphocytes # (test code = Lymphocytes 1.2 1.0-5.5 #) [facility] CenterNoexkspNSUKSOEQRO3240-17-12 15:08:00 Test Item Value Reference Range Interpretation Comments Monocytes # (test code 1.5 See_Comment [Aut omated message] The = Monocytes #) system which generated this result tra nsmitted reference range : <=0.8. The reference r jose alfredo was not used to int erpret this result as normal/abnormal . [facility] CenterMzcaeqhFUZPSTNYSW5030-91-90 15:08:00 Test Item Value Reference Range Interpretation Comments Segs (test code = Segs) 79.6 45.0-75.0 [facility] CenterBqwubzpWZXCXTNVJB7075-97-83 15:08:00 Test Item Value Reference Range Interpretation Comments Lymphocytes (test code = Lymphocytes) 8.8 20.0-40.0 [facility] CenterAlrufxmLBTKWIIWND0260-89-43 15:08:00 Test Item Value Reference Range Interpretation Comments Monocytes (test code = Monocytes) 10.8 2.0-12.0 [facility] CenterYjrtfidTRSCXZMOWP1200-19-83 15:08:00 Test Item Value Reference Range Interpretation Comments Basophils (test code = 0.5 See_Comment [Aut omated message] The Basophils) system which ge nerated this result tra nsmitted reference range : <=1.0. The reference r jose alfredo was not used to int erpret this result as normal/abnormal . [facility] CenterEbazmhnGYZKVXMUQW8986-61-91 15:08:00 Test Item Value Reference Range Interpretation Comments Eosinophils (test code = 0.3 See_Comment [A utomated message] The Eosinophils) system which ge nerated this result tra nsmitted reference range : <=4.0. The reference r jose alfredo was not used to int erpret this result as normal/abnormal . [facility] CenterLsbpmpqZYJNBSBAHJ0188-46-18 15:08:00 Test Item Value Reference Range Interpretation Comments PT (test code = PT) 13.3 s 12.0-14.7 [facility] CenterOqorqggEKZBPCCZIA8242-77-29 15:08:00 Test Item Value Reference Range Interpretation Comments PTT (test code = PTT) 26.3 s 22.9-35.8 [facility] CenterCvszepfHMUXNJTJUJ6489-35-13 15:08:00 Test Item Value Reference Range Interpretation Comments INR (test code = INR) 1.01 0.85-1.17 [facility] CenterOuitdelUKAZGVILJY7973-62-45 15:08:00 Test Item Value Reference Range Interpretation Comments MCHC (test code = MCHC) 33.5 32.0-36.0 [facility] CenterPgcsiffSKVJTFJUTL9367-74-16 15:08:00 Test Item Value Reference Range Interpretation Comments RDW (test code = RDW) 13.0 11.5-14.5 [facility] CenterUcndwlpZYNOFVJYCY0990-35-99 15:08:00 Test Item Value Reference Range Interpretation Comments Hct (test code = Hct) 39.1 42.0-54.0 [facility] CenterJcjfavkSSILDMLHVU9247-58-21 15:08:00 Test Item Value Reference Range Interpretation Comments WBC (test code = WBC) 13.5 3.7-10.4 [facility] CenterGyrhmtxNGUQCXKJKV9949-52-29 15:08:00 Test Item Value Reference Range Interpretation Comments MCV (test code = MCV) 90.1 80.0-94.0 [facility] CenterSbdyzhyETTHLSKPKU1731-19-43 15:08:00 Test Item Value Reference Range Interpretation Comments MCH (test code = MCH) 30.2 pg 27.0-31.0 [facility] CenterIawlajmRENGEULXZV2897-50-63 15:08:00 Test Item Value Reference Range Interpretation Comments MPV (test code = MPV) 9.5 7.4-10.4 [facility]CcvhnitTCWFSVRCBS5720-73-03 15:08:00 Test Item Value Reference Range Interpretation Comments RBC (test code = RBC) 4.34 4.70-6.10 [facility] HospitalSxxbkqlGXAJQMSJEG4488-83-68 15:08:00 Test Item Value Reference Range Interpretation Comments Hgb (test code = Hgb) 13.1 14.0-18.0 [facility] HospitalYoaaaveQLUASEVGQD4249-13-14 15:08:00 Test Item Value Reference Range Interpretation Comments Etoh (%) (test code = Etoh (%)) no gt [facility] HospitalGxsstkyVQKXQPYIPS1073-70-49 15:08:00 Test Item Value Reference Range Interpretation Comments Ethanol Lvl (test code = Ethanol Lvl) no gt [facility] AND [id number] 15:08:00 Test Item Value Reference Range Interpretation Comments UA Ketones (test code Negative *NA*(02/17/15 = UA Ketones) 10:08 AM) [facility] AND [id number] 15:08:00 Test Item Value Reference Range Interpretation Comments UA Bili (test code = Negative *NA*(02/17/15 UA Bili) 10:08 AM) [facility] AND [id number] 15:08:00 Test Item Value Reference Range Interpretation Comments UA Urobilinogen (test code = UA 0.2 0.1-1.0 Urobilinogen) [facility] AND [id number] 15:08:00 Test Item Value Reference Range Interpretation Comments UA Blood (test code = Negative (02/17/15 10:08 UA Blood) AM) [facility] AND [id number] 15:08:00 Test Item Value Reference Range Interpretation Comments UA Nitrite (test code Negative (02/17/15 10:08 = UA Nitrite) AM) [facility] AND [id number] 15:08:00 Test Item Value Reference Range Interpretation Comments UA Leuk Est (test Negative (02/17/15 10:08 code = UA Leuk Est) AM) [facility] AND [id number] 15:08:00 Test Item Value Reference Range Interpretation Comments UA Spec Grav (test *NA*(02/17/15 10:08 AM) code = UA Spec Grav) [facility] AND [id number] 15:08:00 Test Item Value Reference Range Interpretation Comments UA Glucose (test code = UA Glucose) 100 mg/dL [facility] AND [id number] 15:08:00 Test Item Value Reference Range Interpretation Comments UA Protein (test code Negative (02/17/15 10:08 = UA Protein) AM) [facility] AND [id number] 15:08:00 Test Item Value Reference Range Interpretation Comments UA pH (test code = UA pH) 7.0 1 5.0-8.0 [facility] AND [id number] 15:08:00 Test Item Value Reference Range Interpretation Comments UA Color (test code = Yellow *NA*(02/17/15 UA Color) 10:08 AM) [facility] AND [id number] 15:08:00 Test Item Value Reference Range Interpretation Comments UA Turbidity (test code = Clear (02/17/15 10:08 UA Turbidity) AM) [facility] AND [id number] 15:08:00 Test Item Value Reference Range Interpretation Comments UA WBC (test code = UA None Seen (02/17/15 WBC) 10:08 AM) [facility] AND [id number] 15:08:00 Test Item Value Reference Range Interpretation Comments UA RBC (test None Seen See_Comment [Automated mes omises] code = UA RBC) (02/17/15 10:08 The system which AM) generated this result transmitted ref erence range: <=2. The reference range was not used to int erpret this result as normal/abnormal . [facility] [id number] 15:08:00 Test Item Value Reference Range Interpretation Comments UA Bacteria (test code = None Seen (02/17/15 UA Bacteria) 10:08 AM) [facility] AND [id number] 15:08:00 Test Item Value Reference Range Interpretation Comments UA Sq Epi (test code = None Seen (02/17/15 UA Sq Epi) 10:08 AM) [facility] [id number] 15:55:00 Test Item Value Reference Range Interpretation Comments eGFR (test code = eGFR) 68 [facility]2014-10-10 15:55:00 Test Item Value Reference Range Interpretation Comments Globulin (test code = Globulin) 3.3 2.0-4.0 [facility]2014-10-10 15:55:00 Test Item Value Reference Range Interpretation Comments A/G Ratio (test code = A/G Ratio) 1.0 0.7-1.6 [facility]2014-10-10 15:55:00 Test Item Value Reference Range Interpretation Comments Alk Phos (test code = Alk Phos) 43 39-136 [facility]2014-10-10 15:55:00 Test Item Value Reference Range Interpretation Comments Bili Total (test code = Bili Total) 0.3 0.2-1.3 [facility]2014-10-10 15:55:00 Test Item Value Reference Range Interpretation Comments B/C Ratio (test code = B/C Ratio) 17 6-25 [facility]2014-10-10 15:55:00 Test Item Value Reference Range Interpretation Comments AGAP (test code = AGAP) 10.8 10.0-20.0 [facility]2014-10-10 15:55:00 Test Item Value Reference Range Interpretation Comments Calcium Lvl (test code = Calcium Lvl) 9.3 8.5-10.5 [facility]2014-10-10 15:55:00 Test Item Value Reference Range Interpretation Comments Total Protein (test code = Total 6.7 6.4-8.4 Protein) [facility]2014-10-10 15:55:00 Test Item Value Reference Range Interpretation Comments Albumin Lvl (test code = Albumin Lvl) 3.4 3.5-5.0 [facility]2014-10-10 15:55:00 Test Item Value Reference Range Interpretation Comments ALT (test code = ALT) 22 See_Comment [Auto mated message] The system which ge nerated this result transmit stuart reference range : <=65. The reference range was not used to interpr et this result as cherry l/abnormal. [facility]2014-10-10 15:55:00 Test Item Value Reference Range Interpretation Comments AST (test code = AST) 15 See_Comment [Auto mated message] The system which ge nerated this result transmit stuart reference range : <=37. The reference range was not used to interpr et this result as cherry l/abnormal. [facility]2014-10-10 15:55:00 Test Item Value Reference Range Interpretation Comments CO2 (test code = CO2) 36 24-32 [facility]2014-10-10 15:55:00 Test Item Value Reference Range Interpretation Comments Glucose Lvl (test code = Glucose Lvl) 301 70-99 [facility]2014-10-10 15:55:00 Test Item Value Reference Range Interpretation Comments BUN (test code = BUN) 19 7-22 [facility]2014-10-10 15:55:00 Test Item Value Reference Range Interpretation Comments Sodium Lvl (test code = Sodium Lvl) 137 135-145 [facility]2014-10-10 15:55:00 Test Item Value Reference Range Interpretation Comments Creatinine Lvl (test code = Creatinine 1.1 0.5-1.4 Lvl) [facility]2014-10-10 15:55:00 Test Item Value Reference Range Interpretation Comments Potassium Lvl (test code = Potassium 4.8 3.5-5.1 Lvl) [facility]2014-10-10 15:55:00 Test Item Value Reference Range Interpretation Comments Chloride Lvl (test code = Chloride Lvl) 95 95-109 [facility] Cent[id number] 15:55:00 Test Item Value Reference Range Interpretation Comments MCH (test code = MCH) 31.6 pg 27.0-31.0 [facility] CenterSadwojkCXWOWEUJEP9219-94-63 15:55:00 Test Item Value Reference Range Interpretation Comments MCHC (test code = MCHC) 34.5 32.0-36.0 [facility] CenterQgjcachENVBFIFIKH1315-33-48 15:55:00 Test Item Value Reference Range Interpretation Comments MCV (test code = MCV) 91.6 80.0-94.0 [facility] CenterHjcsxraSTYDDWZWKO8016-93-07 15:55:00 Test Item Value Reference Range Interpretation Comments Hct (test code = Hct) 41.8 42.0-54.0 [facility] CenterSafvrumJKWLOEYJXX1026-65-84 15:55:00 Test Item Value Reference Range Interpretation Comments Platelet (test code = Platelet) 187 133-450 [facility] CenterNwmroqdUTLHVFWQGC7738-20-97 15:55:00 Test Item Value Reference Range Interpretation Comments MPV (test code = MPV) 10.2 7.4-10.4 [facility] CenterYtpxbujJFQNNVBRGO0532-04-65 15:55:00 Test Item Value Reference Range Interpretation Comments RDW (test code = RDW) 14.1 11.5-14.5 [facility] CenterAzgrjtqXXDWXSYTDA1061-22-34 15:55:00 Test Item Value Reference Range Interpretation Comments RBC (test code = RBC) 4.56 4.70-6.10 [facility] CenterJjfumorOVMGSQTIAM3293-77-86 15:55:00 Test Item Value Reference Range Interpretation Comments Hgb (test code = Hgb) 14.4 14.0-18.0 [facility] CenterBukepmkGWXXIRDOLI9459-74-45 15:55:00 Test Item Value Reference Range Interpretation Comments WBC (test code = WBC) 14.8 3.7-10.4 [facility]2014-10-10 15:55:00 Test Item Value Reference Range Interpretation Comments eGFR (test code = eGFR) 68 [facility]2014-10-10 15:55:00 Test Item Value Reference Range Interpretation Comments Globulin (test code = Globulin) 3.3 2.0-4.0 [facility]2014-10-10 15:55:00 Test Item Value Reference Range Interpretation Comments A/G Ratio (test code = A/G Ratio) 1.0 0.7-1.6 [facility]2014-10-10 15:55:00 Test Item Value Reference Range Interpretation Comments Alk Phos (test code = Alk Phos) 43 39-136 [facility]2014-10-10 15:55:00 Test Item Value Reference Range Interpretation Comments Bili Total (test code = Bili Total) 0.3 0.2-1.3 [facility]2014-10-10 15:55:00 Test Item Value Reference Range Interpretation Comments B/C Ratio (test code = B/C Ratio) 17 6-25 [facility]2014-10-10 15:55:00 Test Item Value Reference Range Interpretation Comments AGAP (test code = AGAP) 10.8 10.0-20.0 [facility]2014-10-10 15:55:00 Test Item Value Reference Range Interpretation Comments Calcium Lvl (test code = Calcium Lvl) 9.3 8.5-10.5 [facility]2014-10-10 15:55:00 Test Item Value Reference Range Interpretation Comments Total Protein (test code = Total 6.7 6.4-8.4 Protein) [facility]2014-10-10 15:55:00 Test Item Value Reference Range Interpretation Comments Albumin Lvl (test code = Albumin Lvl) 3.4 3.5-5.0 [facility]2014-10-10 15:55:00 Test Item Value Reference Range Interpretation Comments ALT (test code = ALT) 22 See_Comment [Auto mated message] The system which ge nerated this result transmit stuart reference range : <=65. The reference range was not used to interpr et this result as cherry l/abnormal. [facility]2014-10-10 15:55:00 Test Item Value Reference Range Interpretation Comments AST (test code = AST) 15 See_Comment [Auto mated message] The system which ge nerated this result transmit stuart reference range : <=37. The reference range was not used to interpr et this result as cherry l/abnormal. [facility]2014-10-10 15:55:00 Test Item Value Reference Range Interpretation Comments CO2 (test code = CO2) 36 24-32 [facility]2014-10-10 15:55:00 Test Item Value Reference Range Interpretation Comments Glucose Lvl (test code = Glucose Lvl) 301 70-99 [facility]2014-10-10 15:55:00 Test Item Value Reference Range Interpretation Comments BUN (test code = BUN) 19 7-22 [facility]2014-10-10 15:55:00 Test Item Value Reference Range Interpretation Comments Sodium Lvl (test code = Sodium Lvl) 137 135-145 [facility]2014-10-10 15:55:00 Test Item Value Reference Range Interpretation Comments Creatinine Lvl (test code = Creatinine 1.1 0.5-1.4 Lvl) [facility]2014-10-10 15:55:00 Test Item Value Reference Range Interpretation Comments Potassium Lvl (test code = Potassium 4.8 3.5-5.1 Lvl) [facility] [id number] 15:55:00 Test Item Value Reference Range Interpretation Comments Chloride Lvl (test code = Chloride Lvl) 95 95-109 [facility] C[id number] 15:55:00 Test Item Value Reference Range Interpretation Comments MCH (test code = MCH) 31.6 pg 27.0-31.0 [facility] CenterQgynkvmXSEDDQDJDV0112-87-86 15:55:00 Test Item Value Reference Range Interpretation Comments MCHC (test code = MCHC) 34.5 32.0-36.0 [facility] CenterSrlrkxrIUASHFQZQY8849-11-05 15:55:00 Test Item Value Reference Range Interpretation Comments MCV (test code = MCV) 91.6 80.0-94.0 [facility] CenterMaxemgbLHOPLISJEI1000-34-21 15:55:00 Test Item Value Reference Range Interpretation Comments Hct (test code = Hct) 41.8 42.0-54.0 [facility] CenterKyeyncmRKNHUJBKHR8202-69-94 15:55:00 Test Item Value Reference Range Interpretation Comments Platelet (test code = Platelet) 187 133-450 [facility] CenterZwoqgrnCZAJQNYWTG1644-52-88 15:55:00 Test Item Value Reference Range Interpretation Comments MPV (test code = MPV) 10.2 7.4-10.4 [facility] [id number] 15:55:00 Test Item Value Reference Range Interpretation Comments RDW (test code = RDW) 14.1 11.5-14.5 [facility] CenterZzhrdauBHDHAWXPQG4405-89-57 15:55:00 Test Item Value Reference Range Interpretation Comments RBC (test code = RBC) 4.56 4.70-6.10 [facility]XirmievGYYKHDHJNX5716-57-76 15:55:00 Test Item Value Reference Range Interpretation Comments Hgb (test code = Hgb) 14.4 14.0-18.0 [facility] CenterTqzjqidGXVJZKTORQ0909-00-32 15:55:00 Test Item Value Reference Range Interpretation Comments WBC (test code = WBC) 14.8 3.7-10.4 [facility] [id number] 14:28:00 Test Item Value Reference Range Interpretation Comments Total CK (test code = Total CK) 67 12-191 [facility] [id number] 14:28:00 Test Item Value Reference Range Interpretation Comments Troponin-I (test code no gt See_Comment [Auto mated message] The = Troponin-I) system which g enerated this result transmit stuart reference range : <=0.40. The reference r jose alfredo was not used to interpr et this result as cherry l/abnormal. [facility]Re[facility] [id number] 14:28:00 Test Item Value Reference Range Interpretation Comments Total CK (test code = Total CK) 67 12-191 [facility]Re[facility] [id number] 14:28:00 Test Item Value Reference Range Interpretation Comments Troponin-I (test code no gt See_Comment [Auto mated message] The = Troponin-I) system which g enerated this result transmit stuart reference range : <=0.40. The reference r jose alfredo was not used to interpr et this result as cherry l/abnormal. [facility]Re[facility] [id number] 09:10:00 Test Item Value Reference Range Interpretation Comments BNP (test code = BNP) 13 [facility]Re[facility] [id number] 09:10:00 Test Item Value Reference Range Interpretation Comments Total CK (test code = Total CK) 65 12-191 [facility]Re[facility] [id number] 09:10:00 Test Item Value Reference Range Interpretation Comments Troponin-I (test code no gt See_Comment [Auto mated message] The = Troponin-I) system which g enerated this result transmit tsuart reference range : <=0.40. The reference r jose alfredo was not used to interpr et this result as cherry l/abnormal. [facility] [employer] [id number] 09:10:00 Test Item Value Reference Range Interpretation Comments eGFR (test code = eGFR) 76 [facility] [employer] [id number] 09:10:00 Test Item Value Reference Range Interpretation Comments Creatinine Lvl (test code = Creatinine 1.0 0.5-1.4 Lvl) [facility] [id number] 09:10:00 Test Item Value Reference Range Interpretation Comments PTT (test code = PTT) 29.8 s 22.9-35.8 [facility] Camp[id number] 09:10:00 Test Item Value Reference Range Interpretation Comments Platelet (test code = Platelet) 174 133-450 [facility] Spot [employer] [id number] 09:10:00 Test Item Value Reference Range Interpretation Comments BNP (test code = BNP) 13 [facility]annCARD[facility]AC [id number] 09:10:00 Test Item Value Reference Range Interpretation Comments Total CK (test code = Total CK) 65 12-191 [facility]annCARD[facility]AC [id number] 09:10:00 Test Item Value Reference Range Interpretation Comments Troponin-I (test code no gt See_Comment [Auto mated message] The = Troponin-I) system which g enerated this result transmit stuart reference range : <=0.40. The reference r jose alfredo was not used to interpr et this result as cherry l/abnormal. [facility] CampusSpendSmart Payments Company [id number] 09:10:00 Test Item Value Reference Range Interpretation Comments eGFR (test code = eGFR) 76 [facility]Quick TV [id number] 09:10:00 Test Item Value Reference Range Interpretation Comments Creatinine Lvl (test code = Creatinine 1.0 0.5-1.4 Lvl) [facility] HospitalDaegmmlVIMCTVFUVE8379-02-18 09:10:00 Test Item Value Reference Range Interpretation Comments PTT (test code = PTT) 29.8 s 22.9-35.8 [facility] YwlefqiXARMCXARVV4501-09-43 09:10:00 Test Item Value Reference Range Interpretation Comments Platelet (test code = Platelet) 174 133-450 [facility] AND [id number] 02:15:29 Test Item Value Reference Range Interpretation Comments UA Color (test code = Yellow *NA*(06/08/14 UA Color) 9:15 PM) [facility] [id number] 02:15:29 Test Item Value Reference Range Interpretation Comments UA Leuk Est (test Negative (06/08/14 9:15 code = UA Leuk Est) PM) [facility] [id number] 02:15:29 Test Item Value Reference Range Interpretation Comments UA Nitrite (test code Negative (06/08/14 9:15 = UA Nitrite) PM) [facility] AND [id number] 02:15:29 Test Item Value Reference Range Interpretation Comments UA Urobilinogen (test code = UA 0.2 0.1-1.0 Urobilinogen) [facility] AND [id number] 02:15:29 Test Item Value Reference Range Interpretation Comments UA Glucose (test code Negative (06/08/14 9:15 = UA Glucose) PM) [facility] AND [id number] 02:15:29 Test Item Value Reference Range Interpretation Comments UA Protein (test code = Trace *ABN*(06/08/14 UA Protein) 9:15 PM) [facility] AND [id number] 02:15:29 Test Item Value Reference Range Interpretation Comments UA pH (test code = UA pH) 6.0 1 5.0-8.0 [facility] AND [id number] 02:15:29 Test Item Value Reference Range Interpretation Comments UA Spec Grav (test >=1.030 *ABN*(06/08/14 code = UA Spec Grav) 9:15 PM) [facility] AND [id number] 02:15:29 Test Item Value Reference Range Interpretation Comments UA Ketones (test code Negative *NA*(06/08/14 = UA Ketones) 9:15 PM) [facility] AND [id number] 02:15:29 Test Item Value Reference Range Interpretation Comments UA Bili (test code = Negative *NA*(06/08/14 UA Bili) 9:15 PM) [facility] AND [id number] 02:15:29 Test Item Value Reference Range Interpretation Comments UA Turbidity (test code = Clear (06/08/14 9:15 UA Turbidity) PM) [facility] AND [id number] 02:15:29 Test Item Value Reference Range Interpretation Comments UA Blood (test code = Negative (06/08/14 9:15 UA Blood) PM) [facility] AND [id number] 02:15:29 Test Item Value Reference Range Interpretation Comments UA WBC (test code = UA WBC) 0-2 /HPF [facility] AND [id number] 02:15:29 Test Item Value Reference Range Interpretation Comments UA Mucus (test code = UA Mucus) Rare /LPF [facility] AND [id number] 02:15:29 Test Item Value Reference Range Interpretation Comments UA Sq Epi (test code = UA Sq Epi) Rare /LPF [facility] AND [id number] 02:15:29 Test Item Value Reference Range Interpretation Comments UA RBC (test code = 0-2 /HPF See_Comment [Automa stuart message] The UA RBC) system which ge nerated this result tra nsmitted reference range : <=2. The reference range was not used to interpr et this result as cherry l/abnormal. [facility] AND [id number] 02:15:29 Test Item Value Reference Range Interpretation Comments UA Fine Gran (test code = UA Fine 0-2 /LPF Gran) [facility] AND [id number] 02:15:29 Test Item Value Reference Range Interpretation Comments UA Color (test code = Yellow *NA*(06/08/14 UA Color) 9:15 PM) [facility] AND [id number] 02:15:29 Test Item Value Reference Range Interpretation Comments UA Leuk Est (test Negative (06/08/14 9:15 code = UA Leuk Est) PM) [facility] AND [id number] 02:15:29 Test Item Value Reference Range Interpretation Comments UA Nitrite (test code Negative (06/08/14 9:15 = UA Nitrite) PM) [facility] AND [id number] 02:15:29 Test Item Value Reference Range Interpretation Comments UA Urobilinogen (test code = UA 0.2 0.1-1.0 Urobilinogen) [facility] AND [id number] 02:15:29 Test Item Value Reference Range Interpretation Comments UA Glucose (test code Negative (06/08/14 9:15 = UA Glucose) PM) [facility] AND [id number] 02:15:29 Test Item Value Reference Range Interpretation Comments UA Protein (test code = Trace *ABN*(06/08/14 UA Protein) 9:15 PM) [facility] AND [id number] 02:15:29 Test Item Value Reference Range Interpretation Comments UA pH (test code = UA pH) 6.0 1 5.0-8.0 [facility] AND [id number] 02:15:29 Test Item Value Reference Range Interpretation Comments UA Spec Grav (test >=1.030 *ABN*(06/08/14 code = UA Spec Grav) 9:15 PM) [facility] [id number] 02:15:29 Test Item Value Reference Range Interpretation Comments UA Ketones (test code Negative *NA*(06/08/14 = UA Ketones) 9:15 PM) [facility] [id number] 02:15:29 Test Item Value Reference Range Interpretation Comments UA Bili (test code = Negative *NA*(06/08/14 UA Bili) 9:15 PM) [facility] [id number] 02:15:29 Test Item Value Reference Range Interpretation Comments UA Turbidity (test code = Clear (06/08/14 9:15 UA Turbidity) PM) [facility] [id number] 02:15:29 Test Item Value Reference Range Interpretation Comments UA Blood (test code = Negative (06/08/14 9:15 UA Blood) PM) [facility] [id number] 02:15:29 Test Item Value Reference Range Interpretation Comments UA WBC (test code = UA WBC) 0-2 /HPF [facility] AND [id number] 02:15:29 Test Item Value Reference Range Interpretation Comments UA Mucus (test code = UA Mucus) Rare /LPF [facility] AND [id number] 02:15:29 Test Item Value Reference Range Interpretation Comments UA Sq Epi (test code = UA Sq Epi) Rare /LPF [facility] AND [id number] 02:15:29 Test Item Value Reference Range Interpretation Comments UA RBC (test code = 0-2 /HPF See_Comment [Automa stuart message] The UA RBC) system which ge nerated this result tra nsmitted reference range : <=2. The reference range was not used to interpr et this result as cherry l/abnormal. [facility] [id number] 02:15:29 Test Item Value Reference Range Interpretation Comments UA Fine Gran (test code = UA Fine 0-2 /LPF Gran) [facility]annC[facility]AC [id number] 01:45:14 Test Item Value Reference Range Interpretation Comments CK MB (test code = CK MB) 1.3 0.5-3.6 [facility] [id number] 01:45:14 Test Item Value Reference Range Interpretation Comments Total CK (test code = Total CK) 93 12-191 [facility] Spot [employer] [id number] 01:45:14 Test Item Value Reference Range Interpretation Comments Troponin-I (test code no gt See_Comment [Auto mated message] The = Troponin-I) system which g enerated this result transmit stuart reference range : <=0.40. The reference r jose alfredo was not used to interpr et this result as cherry l/abnormal. [facility] [employer] [id number] 01:45:14 Test Item Value Reference Range Interpretation Comments BNP (test code = BNP) 18 [facility] [employer] [id number] 01:45:14 Test Item Value Reference Range Interpretation Comments CK MB Index (test 1.4 See_Comment [Automate d message] The code = CK MB Index) system w [employer] generated this result transmit stuart reference range : <=2.5. The reference range was not used to interpr et this result as cherry l/abnormal. [facility] [employer] [id number] 01:45:14 Test Item Value Reference Range Interpretation Comments eGFR (test code = eGFR) 68 [facility] [employer] [id number] 01:45:14 Test Item Value Reference Range Interpretation Comments CK MB (test code = CK MB) 1.3 0.5-3.6 [facility] [employer] [id number] 01:45:14 Test Item Value Reference Range Interpretation Comments Total CK (test code = Total CK) 93 12-191 [facility] [employer] [id number] 01:45:14 Test Item Value Reference Range Interpretation Comments Troponin-I (test code no gt See_Comment [Auto mated message] The = Troponin-I) system which g enerated this result transmit stuart reference range : <=0.40. The reference r jose alfredo was not used to interpr et this result as cherry l/abnormal. [employer] [id number] 01:45:14 Test Item Value Reference Range Interpretation Comments BNP (test code = BNP) 18 [facility] TelefonicaannCARDIAC [id number] 01:45:14 Test Item Value Reference Range Interpretation Comments CK MB Index (test 1.4 See_Comment [Automate d message] The code = CK MB Index) system w [facility] generated this result transmit stuart reference range : <=2.5. The reference range was not used to interpr et this result as cherry l/abnormal. [facility]2014-10-09 01:45:14 Test Item Value Reference Range Interpretation Comments eGFR (test code = eGFR) 68 [facility] CenterIwtbeqiZLMTNVSGAP8932-30-27 01:25:19 Test Item Value Reference Range Interpretation Comments INR (test code = INR) 0.90 0.85-1.17 [facility] [id number] 01:25:19 Test Item Value Reference Range Interpretation Comments PTT (test code = PTT) 28.6 s 22.9-35.8 [facility] CenterQwfencdIPQWICHNQJ5838-12-79 01:25:19 Test Item Value Reference Range Interpretation Comments PT (test code = PT) 12.1 s 12.0-14.7 [facility] CenterEbyjyzkZNJUPCQLTW7711-31-15 01:25:19 Test Item Value Reference Range Interpretation Comments INR (test code = INR) 0.90 0.85-1.17 [facility] CenterZhiroimPIYJFXJOXO0737-31-06 01:25:19 Test Item Value Reference Range Interpretation Comments PTT (test code = PTT) 28.6 s 22.9-35.8 [facility] CenterYkkzvmfWAFVFNWFRZ7263-11-08 01:25:19 Test Item Value Reference Range Interpretation Comments PT (test code = PT) 12.1 s 12.0-14.7 [facility]2014-10-09 01:25:00 Test Item Value Reference Range Interpretation Comments ALT (test code = ALT) 29 See_Comment [Auto mated message] The system which ge nerated this result transmit stuart reference range : <=65. The reference range was not used to interpr et this result as cherry l/abnormal. [facility]2014-10-09 01:25:00 Test Item Value Reference Range Interpretation Comments A/G Ratio (test code = A/G Ratio) 0.9 0.7-1.6 [facility]2014-10-09 01:25:00 Test Item Value Reference Range Interpretation Comments Alk Phos (test code = Alk Phos) 53 39-136 [facility]2014-10-09 01:25:00 Test Item Value Reference Range Interpretation Comments AST (test code = AST) 24 See_Comment [Auto mated message] The system which ge nerated this result transmit stuart reference range : <=37. The reference range was not used to interpr et this result as cherry l/abnormal. [facility]2014-10-09 01:25:00 Test Item Value Reference Range Interpretation Comments Bili Total (test code = Bili Total) 0.5 0.2-1.3 [facility]2014-10-09 01:25:00 Test Item Value Reference Range Interpretation Comments B/C Ratio (test code = B/C Ratio) 18 6-25 [facility]2014-10-09 01:25:00 Test Item Value Reference Range Interpretation Comments Globulin (test code = Globulin) 4.0 2.0-4.0 [facility]2014-10-09 01:25:00 Test Item Value Reference Range Interpretation Comments Total Protein (test code = Total 7.5 6.4-8.4 Protein) [facility]2014-10-09 01:25:00 Test Item Value Reference Range Interpretation Comments Albumin Lvl (test code = Albumin Lvl) 3.5 3.5-5.0 [facility]2014-10-09 01:25:00 Test Item Value Reference Range Interpretation Comments Potassium Lvl (test code = Potassium 4.5 3.5-5.1 Lvl) [facility]2014-10-09 01:25:00 Test Item Value Reference Range Interpretation Comments CO2 (test code = CO2) 41 24-32 [facility]2014-10-09 01:25:00 Test Item Value Reference Range Interpretation Comments Chloride Lvl (test code = Chloride Lvl) 96 95-109 [facility]2014-10-09 01:25:00 Test Item Value Reference Range Interpretation Comments Calcium Lvl (test code = Calcium Lvl) 9.2 8.5-10.5 [facility]2014-10-09 01:25:00 Test Item Value Reference Range Interpretation Comments AGAP (test code = AGAP) 6.5 10.0-20.0 [facility]2014-10-09 01:25:00 Test Item Value Reference Range Interpretation Comments Sodium Lvl (test code = Sodium Lvl) 139 135-145 [facility]2014-10-09 01:25:00 Test Item Value Reference Range Interpretation Comments Creatinine Lvl (test code = Creatinine 1.1 0.5-1.4 Lvl) [facility]2014-10-09 01:25:00 Test Item Value Reference Range Interpretation Comments BUN (test code = BUN) 20 7-22 [facility]2014-10-09 01:25:00 Test Item Value Reference Range Interpretation Comments Glucose Lvl (test code = Glucose Lvl) 199 70-99 [facility] [id number] 01:25:00 Test Item Value Reference Range Interpretation Comments MCV (test code = MCV) 90.8 80.0-94.0 [facility] CenterAynnizeZGQEWMQGIE7366-83-93 01:25:00 Test Item Value Reference Range Interpretation Comments Hct (test code = Hct) 45.4 42.0-54.0 [facility] [id number] 01:25:00 Test Item Value Reference Range Interpretation Comments MCH (test code = MCH) 31.6 pg 27.0-31.0 [facility] CenterDbjaberQWWTPENYEF4638-59-12 01:25:00 Test Item Value Reference Range Interpretation Comments RBC (test code = RBC) 5.00 4.70-6.10 [facility] CenterYkphruwNCFLYSXLYM9398-24-30 01:25:00 Test Item Value Reference Range Interpretation Comments Hgb (test code = Hgb) 15.8 14.0-18.0 [facility] CenterAtbsyxfYXELWBHMQN7381-20-59 01:25:00 Test Item Value Reference Range Interpretation Comments WBC (test code = WBC) 8.5 3.7-10.4 [facility] CenterJcbpotvKFLBEPVBOS1232-48-12 01:25:00 Test Item Value Reference Range Interpretation Comments MCHC (test code = MCHC) 34.8 32.0-36.0 [facility] CenterPyadxsjBQUHJXEUVM1782-76-90 01:25:00 Test Item Value Reference Range Interpretation Comments Platelet (test code = Platelet) 186 133-450 [facility] CenterLzzcjneALYXWZBARY3363-20-14 01:25:00 Test Item Value Reference Range Interpretation Comments RDW (test code = RDW) 14.1 11.5-14.5 [facility] CenterVxxpsvyJRUTXTHSVG6560-99-10 01:25:00 Test Item Value Reference Range Interpretation Comments MPV (test code = MPV) 9.6 7.4-10.4 [facility] CenterNsvzjpkISUSNQOLPG6917-14-40 01:25:00 Test Item Value Reference Range Interpretation Comments Eosinophils # (test code 0.3 See_Comment [A utomated message] The = Eosinophils #) system whic h generated this result tra nsmitted reference range : <=0.5. The reference r jose alfredo was not used to int erpret this result as normal/abnormal . [facility] CenterJzgzdqfVLJKHHPQTC4620-44-15 01:25:00 Test Item Value Reference Range Interpretation Comments Basophils # (test code 0.1 See_Comment [Aut omated message] The = Basophils #) system which generated this result tra nsmitted reference range : <=0.2. The reference r jose alfredo was not used to int erpret this result as normal/abnormal . [facility] CenterViiagfeIUIUNTERMV1517-86-64 01:25:00 Test Item Value Reference Range Interpretation Comments Monocytes # (test code 1.1 See_Comment [Aut omated message] The = Monocytes #) system which generated this result tra nsmitted reference range : <=0.8. The reference r jose alfredo was not used to int erpret this result as normal/abnormal . [facility] CenterDznwmfsVHWLUUTXGE6815-85-78 01:25:00 Test Item Value Reference Range Interpretation Comments Segs (test code = Segs) 62.9 45.0-75.0 [facility] CenterNrdefuwZBBRLUKJJD5373-91-47 01:25:00 Test Item Value Reference Range Interpretation Comments Lymphocytes # (test code = Lymphocytes 1.7 1.0-5.5 #) [facility] CenterLtqvlvwEHACRJOUAM1517-92-47 01:25:00 Test Item Value Reference Range Interpretation Comments Eosinophils (test code = 3.0 See_Comment [A utomated message] The Eosinophils) system which ge nerated this result tra nsmitted reference range : <=4.0. The reference r jose alfredo was not used to int erpret this result as normal/abnormal . [facility] CenterFeepizfBWUDHPYGPI9738-30-80 01:25:00 Test Item Value Reference Range Interpretation Comments Basophils (test code = 1.3 See_Comment [Aut omated message] The Basophils) system which ge nerated this result tra nsmitted reference range : <=1.0. The reference r jose alfredo was not used to int erpret this result as normal/abnormal . [place] [address]-10-09 01:25:00 Test Item Value Reference Range Interpretation Comments Monocytes (test code = Monocytes) 13.0 2.0-12.0 [facility] CenterPcdgxtqZPLQUDKAKH4315-08-21 01:25:00 Test Item Value Reference Range Interpretation Comments Lymphocytes (test code = Lymphocytes) 19.8 20.0-40.0 [facility] CenterIaygndiHQAEEWEEVG5524-01-56 01:25:00 Test Item Value Reference Range Interpretation Comments Segs-Bands # (test code = Segs-Bands #) 5.3 1.5-8.1 [facility]2014-10-09 01:25:00 Test Item Value Reference Range Interpretation Comments ALT (test code = ALT) 29 See_Comment [Auto mated message] The system which ge nerated this result transmit stuart reference range : <=65. The reference range was not used to interpr et this result as cherry l/abnormal. [facility]2014-10-09 01:25:00 Test Item Value Reference Range Interpretation Comments A/G Ratio (test code = A/G Ratio) 0.9 0.7-1.6 [facility]2014-10-09 01:25:00 Test Item Value Reference Range Interpretation Comments Alk Phos (test code = Alk Phos) 53 39-136 [facility]2014-10-09 01:25:00 Test Item Value Reference Range Interpretation Comments AST (test code = AST) 24 See_Comment [Auto mated message] The system which ge nerated this result transmit stuart reference range : <=37. The reference range was not used to interpr et this result as cherry l/abnormal. [facility]2014-10-09 01:25:00 Test Item Value Reference Range Interpretation Comments Bili Total (test code = Bili Total) 0.5 0.2-1.3 [facility]2014-10-09 01:25:00 Test Item Value Reference Range Interpretation Comments B/C Ratio (test code = B/C Ratio) 18 6-25 [place] 207754-10-09 01:25:00 Test Item Value Reference Range Interpretation Comments Globulin (test code = Globulin) 4.0 2.0-4.0 [facility]2014-10-09 01:25:00 Test Item Value Reference Range Interpretation Comments Total Protein (test code = Total 7.5 6.4-8.4 Protein) [facility]2014-10-09 01:25:00 Test Item Value Reference Range Interpretation Comments Albumin Lvl (test code = Albumin Lvl) 3.5 3.5-5.0 [facility]2014-10-09 01:25:00 Test Item Value Reference Range Interpretation Comments Potassium Lvl (test code = Potassium 4.5 3.5-5.1 Lvl) [facility]2014-10-09 01:25:00 Test Item Value Reference Range Interpretation Comments CO2 (test code = CO2) 41 24-32 [facility]2014-10-09 01:25:00 Test Item Value Reference Range Interpretation Comments Chloride Lvl (test code = Chloride Lvl) 96 95-109 [facility]2014-10-09 01:25:00 Test Item Value Reference Range Interpretation Comments Calcium Lvl (test code = Calcium Lvl) 9.2 8.5-10.5 [facility]2014-10-09 01:25:00 Test Item Value Reference Range Interpretation Comments AGAP (test code = AGAP) 6.5 10.0-20.0 [facility]2014-10-09 01:25:00 Test Item Value Reference Range Interpretation Comments Sodium Lvl (test code = Sodium Lvl) 139 135-145 [facility]2014-10-09 01:25:00 Test Item Value Reference Range Interpretation Comments Creatinine Lvl (test code = Creatinine 1.1 0.5-1.4 Lvl) [facility]2014-10-09 01:25:00 Test Item Value Reference Range Interpretation Comments BUN (test code = BUN) 20 7-22 [facility]2014-10-09 01:25:00 Test Item Value Reference Range Interpretation Comments Glucose Lvl (test code = Glucose Lvl) 199 70-99 [facility] [id number] 01:25:00 Test Item Value Reference Range Interpretation Comments MCV (test code = MCV) 90.8 80.0-94.0 [facility] CenterUpflzevQIBOWMKEVQ9309-00-50 01:25:00 Test Item Value Reference Range Interpretation Comments Hct (test code = Hct) 45.4 42.0-54.0 [facility] CenterMzgqlggAJQXLRGXSL5899-39-57 01:25:00 Test Item Value Reference Range Interpretation Comments MCH (test code = MCH) 31.6 pg 27.0-31.0 [facility] CenterHszcifdHBCHTUAXTG8657-12-08 01:25:00 Test Item Value Reference Range Interpretation Comments RBC (test code = RBC) 5.00 4.70-6.10 [facility] CenterNzipsskGZGAEVSXEF9575-31-39 01:25:00 Test Item Value Reference Range Interpretation Comments Hgb (test code = Hgb) 15.8 14.0-18.0 [facility] CenterRdsiwniHEPFEQQZAZ6609-21-64 01:25:00 Test Item Value Reference Range Interpretation Comments WBC (test code = WBC) 8.5 3.7-10.4 [facility] CenterKcreytjAOQLCYDJUK5540-26-72 01:25:00 Test Item Value Reference Range Interpretation Comments MCHC (test code = MCHC) 34.8 32.0-36.0 [facility] CenterJcqvyxyGMGKPRMMXN7434-84-67 01:25:00 Test Item Value Reference Range Interpretation Comments Platelet (test code = Platelet) 186 133-450 [facility] CenterPhnjxtgXXGXJQGVFQ5346-91-05 01:25:00 Test Item Value Reference Range Interpretation Comments RDW (test code = RDW) 14.1 11.5-14.5 [facility] CenterEmvqjbdDAQVKVEOXT8872-33-32 01:25:00 Test Item Value Reference Range Interpretation Comments MPV (test code = MPV) 9.6 7.4-10.4 [facility] CenterYrhvovqRRSFLWSCBO9414-41-23 01:25:00 Test Item Value Reference Range Interpretation Comments Eosinophils # (test code 0.3 See_Comment [A utomated message] The = Eosinophils #) system whic h generated this result tra nsmitted reference range : <=0.5. The reference r jose alfredo was not used to int erpret this result as normal/abnormal . [facility] CenterOclayzmLZOHUEGYJL6780-91-99 01:25:00 Test Item Value Reference Range Interpretation Comments Basophils # (test code 0.1 See_Comment [Aut omated message] The = Basophils #) system which generated this result tra nsmitted reference range : <=0.2. The reference r jose alfredo was not used to int erpret this result as normal/abnormal . [facility] CenterDyntcabKFETCMZREP0010-34-07 01:25:00 Test Item Value Reference Range Interpretation Comments Monocytes # (test code 1.1 See_Comment [Aut omated message] The = Monocytes #) system which generated this result tra nsmitted reference range : <=0.8. The reference r jose alfredo was not used to int erpret this result as normal/abnormal . [facility] CenterWwstifpGXVVEQYETG9681-03-49 01:25:00 Test Item Value Reference Range Interpretation Comments Segs (test code = Segs) 62.9 45.0-75.0 [facility] CenterTfvznlzEIQGSWXLAF8013-84-62 01:25:00 Test Item Value Reference Range Interpretation Comments Lymphocytes # (test code = Lymphocytes 1.7 1.0-5.5 #) [facility] CenterXyebwzpCNGVXHNPAH3960-43-54 01:25:00 Test Item Value Reference Range Interpretation Comments Eosinophils (test code = 3.0 See_Comment [A utomated message] The Eosinophils) system which ge nerated this result tra nsmitted reference range : <=4.0. The reference r jose alfredo was not used to int erpret this result as normal/abnormal . [facility] CenterGbdnsqlDSXZLXQVJB4210-82-11 01:25:00 Test Item Value Reference Range Interpretation Comments Basophils (test code = 1.3 See_Comment [Aut omated message] The Basophils) system which ge nerated this result tra nsmitted reference range : <=1.0. The reference r jose alfredo was not used to int erpret this result as normal/abnormal . [facility] CenterGtndwknISJCONINVP8484-45-45 01:25:00 Test Item Value Reference Range Interpretation Comments Monocytes (test code = Monocytes) 13.0 2.0-12.0 [facility] CenterBepmqckGBNPORQJLF8356-12-17 01:25:00 Test Item Value Reference Range Interpretation Comments Lymphocytes (test code = Lymphocytes) 19.8 20.0-40.0 [facility] CenterEpedgvbLWKRVIGDMT8463-15-66 01:25:00 Test Item Value Reference Range Interpretation Comments Segs-Bands # (test code = Segs-Bands #) 5.3 1.5-8.1 [facility]
[2022-09-16 13:06] LABS: Arterial Blood Carboxyhemoglob 1.7 % (0-1.5); Blood Gas Oxyhemoglobin 72.3 % (94-97); Blood O2 Saturation 74.5 % (92-98.5)
[2022-09-16 13:06] LABS: Hematocrit 35.3 % (39.6-49.0); Lymphocytes % 13.6 % (15.3-44.8); MCV 94.5 fL (80-100); MPV 8.9 fL (7.6-11.3); RBC Red Blood Cell Count 3.74 M/uL (4.33-5.43)
[2022-09-16 13:25] LABS: Albumin 2.7 g/dL (3.4-5.0); Bilirubin Total 0.3 mg/dL (0.2-1.0); Protein, Total 7.2 g/dL (6.4-8.2); Troponin High Sensitivity 25.4 pg/mL (<58.9)
[2022-09-16 13:26] LABS: Potassium 4.1 mmol/L (3.5-5.1)
--- NOTE | 2022-09-16 13:27 | RAD REPORT ---
EXAM DESCRIPTION: CT - Head Brain Wo Cont - 09/16/2022 1:17 pm CLINICAL HISTORY: Mental status change, unknown cause Headache, drowsiness COMPARISON: Head Brain Wo Cont dated 01/25/2022; Head Brain Wo Cont dated 02/14/2021 TECHNIQUE: All CT scans are performed using dose optimization technique as appropriate and may inclu de automated exposure control or mA/KV adjustment according to patient size. FINDINGS: No intracranial hemorrhage, hydrocephalus or extra-axial fluid collection.There is a signi ficant diffuse brain atrophy pattern.No areas of brain edema or evidence of midline shift. The paranasal sinuses and mastoids are clear. The calvarium is intact. IMPRESSION: No acute intracranial abnormality.
--- NOTE | 2022-09-16 14:21 | RAD REPORT ---
EXAM DESCRIPTION: RAD - Chest Single View - 09/16/2022 1:36 pm CLINICAL HISTORY: COPD Chest pain. COMPARISON: Chest Single View dated 08/29/2022; Chest Single View dated 04/05/2022; Chest Single View dated 04/03/2022; Chest Single View dated 01/27/2022 FINDINGS: Portable technique limits examination quality. There are moderate bilateral pulmonary opacities seen. Pulmonary edema versus pneumonia pattern. The heart is mildly enlarged. No displaced fractures. IMPRESSION: Moderate CHF favored.
[2022-09-16 14:51] LABS: Urine Blood Negative (Negative); Urine Glucose Negative (Negative); Urine Protein Negative (Negative); Urine Specific Gravity 1.015 (1.005-1.030)
--- NOTE | 2022-09-16 15:14 | EDPHYS ---
Physician Documentation [facility] Name: Michael Duncan Age: 77 yrs Sex: Male : 1945 Arrival Date: 09/16/2022 Time: 12:39 Bed 4 Private MD: ED Physician Martin Brown HPI: 09/16 14:22 This 77 yrs old Male presents to ER via EMS with complaints of Breathing Difficulty. rt 14:22 The patient has shortness of breath at rest. Onset: The symptoms/episode began/occurred rt at an unknown time. The patient's shortness of breath is alleviated by application of supplemental oxygen. Associated signs and symptoms: Pertinent positives: confusion. Unable to obtain HPI due to altered mental status, baseline dementia. Patient with history of dementia presents to the ED with reported altered mental status. The patient has had decreased responsiveness of her baseline. Was reportedly hypoxic to the low 80s on supplemental O2 by longterm. The patient had improvement with CPAP, no longer hypoxic. EMS states the patient has had some improvement of his mental status. No other reported symptoms, symptoms are moderate in severity, no other aggravating or alleviating factors.. Historical: - Allergies: 12:43 caffiene; kc6 12:43 Codeine; kc6 - Home Meds: 16:58 alprazolam 0.25 mg oral tab [Active]; albuterol sulfate 0.63 mg/3 mL inhalation nebu kc6 [Active]; Xarelto 20 mg oral tab [Active]; Lasix 40 mg oral tab [Active]; Depakote 125 mg oral TbEC [Active]; lisinopril 5 mg oral tab [Active]; - PMHx: 12:43 Bipolar disorder; CHF; COPD; Dementia; Depression; Diabetes - NIDDM; High Cholesterol; kc6 Hyperlipidemia; Hypertension; - Immunization history:: Client reports receiving the 2nd dose of the Covid vaccine, Flu vaccine is up to date. - Social history:: Smoking status: Patient denies any tobacco usage or history of. - Family history:: not pertinent. ROS: 14:22 Unable to obtain ROS due to altered mental status, baseline dementia. rt Exam: 14:22 Constitutional: This is a well developed, well nourished patient who is awake, alert, rt and in no acute distress. Head/Face: Normocephalic, atraumatic. Chest/axilla: Normal chest wall appearance and motion. Nontender with no deformity. No lesions are appreciated. Cardiovascular: Regular rate and rhythm with a normal S1 and S2. No gallops, murmurs, or rubs. Normal PMI, no JVD. No pulse deficits. Abdomen/GI: Soft, non-tender, with normal bowel sounds. No distension or tympany. No guarding or rebound. No evidence of tenderness throughout. Skin: Warm, dry with normal turgor. Normal color with no rashes, no lesions, and no evidence of cellulitis. MS/ Extremity: Pulses equal, no cyanosis. Neurovascular intact. Full, normal range of motion. 14:22 ECG was reviewed by the Attending Physician. 14:22 Respiratory: Diminished breath sounds on all lung coffey, mild respiratory distress. 14:22 Neuro: Moves all 4 extremities equally, awake. 14:22 Psych: Not assessable. Vital Signs: 12:40 BP 146 / 73; Pulse 85; Resp 20 S; Temp 97.5(O); Pulse Ox 98% on 2 lpm NC; Weight 120.2 kc6 kg (R); Height 6 ft. 1 in. (185.42 cm) (R); Pain 0/10; 13:20 BP 129 / 71; Pulse 85; Resp 25 S; Pulse Ox 97% on BiPAP; Pain 08/10; kc6 14:20 BP 126 / 86; Pulse 66; Resp 22 S; Pulse Ox 97% on BiPAP; Pain 0/10; kc6 15:13 BP 141 / 76; Pulse 74; Resp 22 S; Pulse Ox 100% on BiPAP; kc6 16:11 BP 160 / 94; Pulse 75; Resp 15 S; Pulse Ox 100% on BiPAP; kc6 17:56 BP 162 / 77; Pulse 73; Resp 17 S; Pulse Ox 96% on 2 lpm NC; Pain 0/10; kc6 12:40 Body Mass Index 34.96 (120.20 kg, 185.42 cm) kc6 MDM: 12:45 Patient medically screened. rt 15:14 Differential diagnosis: asthma, CHF exacerbation, Chronic Obstructive Pulmonary Disease rt Pneumothorax pulmonary edema, Pulmonary Embolism. Data reviewed: vital signs, nurses notes, old medical records, lab test result(s), EKG, radiologic studies. Consideration of Admission/Observation Patient was admitted/placed on observation. Management of patient was discussed with the following: Hospitalist: will admit. I considered the following discharge prescriptions or medication management in the emergency department Medications were administered in the Emergency Department. See MAR. Independent interpretation of the following test(s) in the Emergency Department X-Ray: My interpretation is pulm edema. External Records Reviewed: Inpatient record: hx of hypercapnea. Care significantly affected by the following chronic conditions: Congestive Heart Failure, Chronic Obstructive Pulmonary Disease, Obesity. Response to treatment: the patient's symptoms have markedly improved after treatment. 09/16 12:44 Order name: ABG; Complete Time: 15:04 rt 09/16 12:44 Order name: CBC with Diff; Complete Time: 14:20 rt 09/16 12:44 Order name: CMP; Complete Time: 14:20 rt 09/16 12:44 Order name: Troponin HS; Complete Time: 14:20 rt 09/16 12:44 Order name: BNP; Complete Time: 14:20 rt 09/16 12:44 Order name: UA MICROSCOPIC rt 09/16 14:51 Order name: Urine Dipstick-Ancillary; Complete Time: 14:54 EDMS 09/16 15:04 Order name: COVID-19/FLU A+B rt 09/16 15:39 Order name: ABG Arterial Blood Gas EDMS 09/16 16:31 Order name: ABG Arterial Blood Gas EDMS 09/16 16:48 Order name: Urinalysis EDMS 09/16 16:48 Order name: Basic Metabolic Panel EDMS 09/16 16:48 Order name: Basic Metabolic Panel EDLA 09/16 16:48 Order name: CBC with Automated Diff EDMS 09/16 12:44 Order name: EKG; Complete Time: 12:45 rt 09/16 12:44 Order name: EKG - Nurse/Tech; Complete Time: 13:05 rt 09/16 12:44 Order name: Chest Single View XRAY; Complete Time: 14:27 rt 09/16 12:44 Order name: Urine Dipstick-Ancillary (obtain specimen); Complete Time: 14:50 rt 09/16 12:44 Order name: CT Head Brain wo Cont; Complete Time: 14:20 rt 09/16 16:48 Order name: 60g Consistent Carbohydrate (ADA 1800/2000) EDMS 09/16 16:48 Order name: CBC with Automated Diff EDMS 09/16 16:48 Order name: NT PRO-BNP EDMS 09/16 16:48 Order name: NT PRO-BNP EDMS EC:22 Rate is 80 beats/min. Rhythm is regular, A fib with No ectopy. QRS [place] is Normal. NE rt interval is normal. QRS interval is normal. QT interval is normal. No Q waves. Interpreted by me. Administered Medications: 15:21 Drug: Lasix (furosemide) 40 mg Route: IVP; Site: right forearm; kc6 16:12 Follow up: Response: No adverse reaction kc6 Disposition: 15:14 Critical Care:. rt Disposition Summary: 09/16/22 15:13 Hospitalization Ordered Hospitalization Status: Inpatient Admission rt Provider: Hiro Rasheed rt Location: Telemetry/MedSurg (Inpatient) rt Condition: Serious rt Problem: an acute exacerbation rt Symptoms: have improved rt Bed/Room Type: Standard rt Room Assignment: 215(09/16/22 16:57) bd Diagnosis - Acute respiratory failure with hypercapnia rt - Acute pulmonary edema rt Forms: - Medication Reconciliation Form rt - SBAR form rt Critical care time excluding procedures: 15:14 Critical care time: Bedside Care: 30 minutes, Consultation: 10 minutes. Total time: 40 rt minutes Signatures: Dispatcher [employer] EDMS Maria Victoria Pugh Kaitlyn, RN RN kc6 Martin Brown MD MD rt Corrections: (The following items were deleted from the chart) 16:57 15:13 rt bd
--- NOTE | 2022-09-16 15:14 | ER ---
Nurse's Notes [facility] Name: Michael Duncan Age: 77 yrs Sex: Male : 1945 Arrival Date: 09/16/2022 Time: 12:39 Bed 4 Private MD: Diagnosis: Acute respiratory failure with hypercapnia;Acute pulmonary edema Presentation: 09/16 12:40 Chief complaint: EMS states: [facility] called for SPO2 in the low 80's. stated client kc6 normally wears CPAP. upon arrival clients SPO2 is 98% on 2L via nasal canula. Coronavirus screen: At this time, the client does not indicate any symptoms associated with coronavirus-19. Ebola Screen: No symptoms or risks identified at this time. Initial Sepsis Screen: Does the patient meet any 2 criteria? No. Patient's initial sepsis screen is negative. Does the patient have a suspected source of infection? No. Patient's initial sepsis screen is negative. Risk Assessment: Do you want to hurt yourself or someone else? Patient reports no desire to harm self or others. Onset of symptoms was September 16, 2022. 12:40 Method Of Arrival: EMS: [facility] kc6 12:40 Acuity: SHAZIA 3 kc6 Triage Assessment: 12:43 General: Appears in no apparent distress. comfortable, Behavior is calm, cooperative, kc6 appropriate for age. Pain: Denies pain. EENT: No signs and/or symptoms were reported regarding the EENT system. Neuro: Coley Agitation-Sedation Scale (RASS): 0 - Alert and Calm Level of Consciousness is awake, alert, obeys commands, Oriented to person, place, time, situation, Appropriate for age. Cardiovascular: Heart tones S1 S2 present Capillary refill < 3 seconds. Respiratory: Reports shortness of breath Airway is patent Trachea midline Respiratory effort is even, unlabored, Respiratory pattern is regular, symmetrical, Breath sounds are diminished bilaterally. Onset: The symptoms/episode began/occurred today, the patient has mild shortness of breath. GI: No signs and/or symptoms were reported involving the gastrointestinal system. : No signs and/or symptoms were reported regarding the genitourinary system. Derm: No signs and/or symptoms reported regarding the dermatologic system. Skin is intact, Skin is dry, Skin is pale, Skin temperature is warm. Musculoskeletal: No signs and/or symptoms reported regarding the musculoskeletal system. Circulation, motion, and sensation intact. Capillary refill < 3 seconds, Range of motion: intact in all extremities. Historical: - Allergies: 12:43 caffiene; kc6 12:43 Codeine; kc6 - Home Meds: 16:58 alprazolam 0.25 mg oral tab [Active]; albuterol sulfate 0.63 mg/3 mL inhalation nebu kc6 [Active]; Xarelto 20 mg oral tab [Active]; Lasix 40 mg oral tab [Active]; Depakote 125 mg oral TbEC [Active]; lisinopril 5 mg oral tab [Active]; - PMHx: 12:43 Bipolar disorder; CHF; COPD; Dementia; Depression; Diabetes - NIDDM; High Cholesterol; kc6 Hyperlipidemia; Hypertension; - Immunization history:: Client reports receiving the 2nd dose of the Covid vaccine, Flu vaccine is up to date. - Social history:: Smoking status: Patient denies any tobacco usage or history of. - Family history:: not pertinent. Screenin:[address] [facility] ED Fall Risk Assessment (Adult) History of falling in the last 3 months, kc6 including since admission No falls in past 3 months (0 pts) Confusion or Disorientation No (0 pts) Intoxicated or Sedated No (0 pts) Impaired Gait No (0 pts) Mobility Assist Device Used No (0 pt) Altered Elimination No (0 pt) Score/Fall Risk Level 0 - 2 = Low Risk Oriented to surroundings, Maintained a safe environment, Educated pt \T\ family on fall prevention, incl call for assistance when getting out of bed, Assessed \T\ reinforced patient's understanding of fall precautions, Hourly rounding (assess needs \T\ fall precautionary measures) done. Abuse screen: Denies threats or abuse. Denies injuries from another. Nutritional screening: No deficits noted. Tuberculosis screening: No symptoms or risk factors identified. Assessment: 12:45 Reassessment: please see triage assessment. Cardiovascular: Rhythm is sinus rhythm. kc6 13:40 Reassessment: Patient appears in no apparent distress at this time. No changes from kc6 previously documented assessment. Patient and/or family updated on plan of care and expected duration. Pain level reassessed. Patient is alert, oriented x 3, equal unlabored respirations, skin warm/dry/pink. Patient denies pain at this time. 14:40 Reassessment: Patient appears in no apparent distress at this time. No changes from kc6 previously documented assessment. Patient and/or family updated on plan of care and expected duration. Pain level reassessed. Patient is alert, oriented x 3, equal unlabored respirations, skin warm/dry/pink. Patient denies pain at this time. 15:40 Reassessment: Patient appears in no apparent distress at this time. No changes from kc6 previously documented assessment. Patient and/or family updated on plan of care and expected duration. Pain level reassessed. Patient is alert, oriented x 3, equal unlabored respirations, skin warm/dry/pink. Patient denies pain at this time. 16:40 Reassessment: Patient appears in no apparent distress at this time. No changes from kc6 previously documented assessment. Patient and/or family updated on plan of care and expected duration. Pain level reassessed. Patient is alert, oriented x 3, equal unlabored respirations, skin warm/dry/pink. Patient denies pain at this time. 17:03 Reassessment: attempted to call report to 4th floor. stated the room JUST got assigned kc6 and will have the nurse call me back. 17:40 Reassessment: Patient appears in no apparent distress at this time. No changes from kc6 previously documented assessment. Patient and/or family updated on plan of care and expected duration. Pain level reassessed. Patient is alert, oriented x 3, equal unlabored respirations, skin warm/dry/pink. Patient denies pain at this time. Vital Signs: 12:40 BP 146 / 73; Pulse 85; Resp 20 S; Temp 97.5(O); Pulse Ox 98% on 2 lpm NC; Weight 120.2 kc6 kg (R); Height 6 ft. 1 in. (185.42 cm) (R); Pain 0/10; 13:20 BP 129 / 71; Pulse 85; Resp 25 S; Pulse Ox 97% on BiPAP; Pain 08/10; kc6 14:20 BP 126 / 86; Pulse 66; Resp 22 S; Pulse Ox 97% on BiPAP; Pain 0/10; kc6 15:13 BP 141 / 76; Pulse 74; Resp 22 S; Pulse Ox 100% on BiPAP; kc6 16:11 BP 160 / 94; Pulse 75; Resp 15 S; Pulse Ox 100% on BiPAP; kc6 17:56 BP 162 / 77; Pulse 73; Resp 17 S; Pulse Ox 96% on 2 lpm NC; Pain 0/10; kc6 12:40 Body Mass Index 34.96 (120.20 kg, 185.42 cm) kc6 ED Course: 12:39 Patient arrived in ED. kc6 12:40 Cece Ewing RN is Primary Nurse. kc6 12:41 Martin Brown MD is Attending Physician. rt 12:43 Triage completed. kc6 12:43 Arm band placed on. kc6 12:46 Patient has correct armband on for positive identification. Placed in gown. Bed in low kc6 position. Call light in reach. Side rails up X2. 12:58 BNP Sent. kc6 12:58 Troponin HS Sent. kc6 12:58 CMP Sent. kc6 12:58 CBC with Diff Sent. kc6 12:58 Inserted saline lock: 20 gauge in right forearm, using aseptic technique. Blood kc6 collected. 13:18 CT Head Brain wo Cont In Process Unspecified. EDMS 13:38 Chest Single View XRAY In Process Unspecified. EDMS 14:50 Straight cath inserted, using sterile technique, 14 Fr. Specimen obtained. Returned kc6 clear yellow urine. Patient tolerated well. 15:12 Hiro Rasheed is Hospitalizing Provider. rt 15:25 COVID-19/FLU A+B Sent. kc6 18:02 No provider procedures requiring assistance completed. Patient admitted, IV remains in kc6 place. Administered Medications: 15:21 Drug: Lasix (furosemide) 40 mg Route: IVP; Site: right forearm; kc6 16:12 Follow up: Response: No adverse reaction kc6 Medication: 18:03 VIS not applicable for this client. kc6 Outcome: 15:13 Decision to Hospitalize by Provider. rt 18:03 Admitted to Med/surg accompanied by tech, via stretcher, room 215, with oxygen, with kc6 chart, Report called to [facility] To 18:03 Condition: stable 18:03 Instructed on the need for admit. 18:03 Patient left the ED. kc6 Signatures: Dispatcher [employer] EDMS Cece Ewing RN RN kc6 Martin Brown MD MD rt Corrections: (The following items were deleted from the chart) 13:09 12:40 Chief complaint: EMS states: [facility] called for SPO2 in the low 80's. upon [facility] arrival clients O2 is 98\T\ on 2L. [facility] 16:18 16:11 BP 143 / 117; Pulse 75bpm; Resp 15bpm; Spontaneous; Pulse Ox 100% BiPAP; [place] [id number]
[2022-09-16] MEDS ORDERED: FUROSEMIDE 40 MG/4 ML VIAL ONE (15:18)
[2022-09-16 15:38] LABS: Arterial Blood Carboxyhemoglob 1.8 % (0-1.5); Blood Gas Oxyhemoglobin 90.1 % (94-97); Blood O2 Saturation 92.9 % (92-98.5)
[2022-09-16 16:18] LABS: SARS-COV-2 RT PCR NEGATIVE (NEGATIVE)
[2022-09-16] MEDS ORDERED: ACETAMINOPHEN 325 MG TABLET PO PRN (16:29)
[2022-09-16] MEDS ORDERED: HYDROCODONE/APAP 5/325 MG TAB PO PRN (16:29)
[2022-09-16] MEDS ORDERED: POLYETHYL GLY 3350 17 GM/DOSE PO PRN (16:40)
[2022-09-16] MEDS ORDERED: ONDANSETRON 4 MG/2 ML VIAL IV PRN (16:43)
--- NOTE | 2022-09-16 16:48 | P.HP ---
Certification for Inpatient Patient admitted to: Inpatient With expected LOS: >2 Midnights Patient will require the following post-hospital care: None Practitioner: I am a practitioner with admitting privileges, knowledge of patient current condition, hospital course, and medical plan of care. Services: Services provided to patient in accordance with Admission requirements found in Title 42 Section 412.3 of the Code of Federal Regulations Patient History Date of Service: 09/17/22 Reason for admission: Hypoxia History of Present Illness: Patient is a 77-year-old male with a past medical history significant for anxiety disorder, bipolar disorder dementia, COPD, depression, DM 2, HLD, CHF who presents with complaint of shortness of breath onset 2 days ago. Patient reported that he is on home O2 therapy at 3 L/min. Patient reported associated signs and symptoms of cough. Patient is a resident of a senior care. Patient reported that he was sent to the ER due to oxygen levels being in the low 80s. Patient was noted to be confused and less responsive at the senior care but patient currently alert and oriented x3. Patient denies any other signs and symptoms. Symptoms are aggravated or relieved by nothing. Assisted staff decided to send patient to the hospital for medical evaluation. Allergies caffeine Allergy (Verified 09/16/22 23:26) Anaphylaxis codeine Allergy (Verified 09/16/22 23:26) Anaphylaxis Home Medications: ALPRAZolam [Xanax*] 0.25 mg PO BID PRN 04/04/22 Amiodarone HCl [Cordarone*] 200 mg PO DAILY 04/04/22 Arformoterol Tartrate [Brovana] 1 amp NEB BID 04/04/22 Atorvastatin Calcium [Lipitor*] 10 mg PO BEDTIME 04/04/22 Buspirone HCl [Buspar*] 5 mg PO TID 04/04/22 Divalproex [Depakote Sprinkle*] 625 mg PO BID 04/04/22 Docusate [Colace Cap*] 200 mg PO BID 04/04/22 Doxepin HCl [Sinequan*] 25 mg PO BEDTIME 04/04/22 Furosemide [Lasix*] 40 mg PO BID 04/04/22 Insulin Degludec [Tresiba] 55 unit SQ BEDTIME 04/04/22 Levalbuterol HCl [Xopenex] 1 amp NEB BID 04/04/22 Levothyroxine [Synthroid*] 0.1 mg PO DAILY 04/04/22 Lisinopril [Zestril] 5 mg PO DAILY 04/04/22 Melatonin 15 mg PO BEDTIME 04/04/22 Memantine HCl [Namenda*] 10 mg PO BID 04/04/22 Polyethyl Gly 3350 [Glycolax*] 17 g PO DAILY 04/04/22 Potassium Oral Tab [Klor-Con 10 mEq Tab*] 20 meq PO DAILY 04/04/22 Rivaroxaban [Xarelto] 20 mg PO DAILY 04/04/22 Sitagliptin Phosphate [Januvia] 100 mg PO DAILY 04/04/22 Timolol 0.5% Opth [Timoptic 0.5% Opth*] 1 gtt EACH EYE BID 04/04/22 Tramadol HCl [Ultram] 50 mg PO Q6HP PRN 04/04/22 Venlafaxine HCl 75 mg PO BID 04/04/22 acetaZOLAMIDE [Acetazolamide] 250 mg PO DAILY 04/04/22 carvediloL [Coreg*] 12.5 mg PO BID 04/04/22 cloNIDine HCL [Clonidine HCl] 0.1 mg PO BID 04/04/22 guaiFENesin [Guaifenesin] 10 ml PO Q6HP PRN 04/04/22 Albuterol Sulfate [Albuterol Sulfate 0.083% Neb Soln] 2.5 mg IH Q8HP PRN 09/16/22 - Past Medical/Surgical History Diabetic: Yes -: Severe COPD, Pt has a BIPAP -: DM NIDDM -: HTN -: High cholesterol -: Bipolar -: Chronic systolic congestive heart failure -: Heart stents Psychosocial/ Personal History: [facility] resident - Family History Mother -: Stroke Notes: Stroke - Social History Smoking Status: Unknown if ever smoked Alcohol use: No CD- Drugs: No Caffeine use: Yes Place of Residence: Assisted Review of Systems General: Unremarkable Eyes: Unremarkable ENT: Unremarkable Respiratory: Cough, Shortness of Breath Cardiovascular: Unremarkable Gastrointestinal: Unremarkable Genitourinary: Unremarkable Musculoskeletal: Unremarkable Integumentary: Bruising Neurological: Unremarkable Lymphatics: Unremarkable Physical Examination - Physical Exam General: Alert, Oriented x3, Cooperative, Mild distress HEENT: Atraumatic, PERRLA, Mucous membr. moist/pink, EOMI, Sclerae nonicteric Neck: Supple, 2+ carotid pulse no bruit, No LAD, Without JVD or thyroid abnormality Respiratory: Diminished Cardiovascular: No edema, No murmurs, Irregular heart rate/rhythm Capillary refill: <2 Seconds Gastrointestinal: Normal bowel sounds, Soft and benign, No tenderness Musculoskeletal: No clubbing, No swelling, No contractures, No erythema, No tenderness Integumentary: No rashes, No breakdown, No significant lesion, No erythema Neurological: Normal speech, Normal tone, Normal affect Lymphatics: No axilla or inguinal lymphadenopathy - Studies Laboratory Data (last 24 hrs) 09/16/22 12:56: Sodium 141, Potassium 4.1, BUN 35 H, Creatinine 1.97 H, Glucose 119 H, Total Bilirubin 0.3, AST 17, ALT 13 L, Alkaline Phosphatase 61 09/16/22 12:56: WBC 7.20, Hgb 11.2 L D, Hct 35.3 L, Plt Count 163 Assessment and Plan - Plan --Acute respiratory failure with hypercapnia. Patient on BiPAP therapy. Repeat ABG indicates decreasing pCO2. Pulmonology consulted. Will await further recommendations. -- Acute on chronic systolic CHF exacerbation. Daily weight and strict I/O. Cardiology consulted. Continue diuresis with Lasix Per chief nurse anesthetist recommendation. Will await further recommendations. --Acute on chronic COPD with exacerbation. Continue Steroids, BiPAP therapy, neb treatment with Atrovent, albuterol and arformoterol. --Anxiety disorder\bipolar disorder. Continue home medication. --Acute encephalopathy. Likely secondary to hypercapnia. CT head unremarkable for any acute intracranial abnormality. AMS currently resolved. Continue supportive care. -- History of dementia. Patient currently alert and oriented x3. Continue supportive care. -- FAVIO on CKD 3A. Nephrology consulted. Will further recommendation from logging superintendent. --Anemia of chronic disease. H&H stable. Continue to monitor hemoglobin and transfuse if less than 7.0. --Hyperlipidemia. Continue home medication. -DM2. BS monitoring with sliding scale insulin. Continue insulin glargine. --Hypertension. Poorly controlled. Continue home medications and hydralazine as needed. -- Hyperlipidemia. Continue statin. -- Atrial fibrillation. Continue amiodarone and beta-catalino. Telemetry to monitor for any malignant arrhythmia. Further management per chief nurse anesthetist. --DVT prophylaxis with heparin subQ. Discharge Plan: Assisted Plan to discharge in: Greater than 2 days - Advance Directives Does patient have a Living Will: No Does patient have a Durable POA for Healthcare: No - Code Status/Comfort Care Code Status Assessed: Yes Physician Review: Patient Assessed, Agree with Above Assessment and Plan Critical Care: No
[2022-09-16] MEDS ORDERED: predniSONE 20 MG TAB PO SCH (17:00)
[2022-09-16] MEDS ORDERED: FUROSEMIDE 40 MG/4 ML VIAL IV SCH (17:00)
--- NOTE | 2022-09-16 17:59 | CON ---
Date of Consultation: 09/16/2022 Reason For Consultation: Acute CHF exacerbation with hypoxic respiratory failure due to that. History Of Present Illness: A 77-year-old male was sent from [facility] due to low oxygen saturatio n to 80% and shortness of breath. Patient has obstructive sleep apnea, so uses CPAP at night and upo n arrival to the emergency room with nasal cannula, he was saturating 98%. He has been having shortn ess of breath and lower extremity edema. No reported chest pain. No other complaints. Past Medical History: Significant for COPD, bipolar disorder, congestive heart failure, hypertension , dyslipidemia, dementia, diabetes, atrial fibrillation. Medications: Refer reconciliation sheet for detailed list. Allergies: CAFFEINE AND CODEINE. Family History: No premature coronary artery disease or cancer. Social History: Does not smoke or drink. Does not use any drugs. Review of Systems: All systems reviewed. They were negative except for mentioned in HPI. Physical Examination: Vital signs: Reviewed. Head and Neck: Pupils are equal, reactive to light. Intact eye movements. Positive JVD elevation. Neck is supple. Thyroid is not enlarged. Lungs: Crackles in both bases. No accessory muscle use or muscle retraction. Heart: Regular. No extra sounds. Abdomen: Soft, nontender. Bowel sounds positive. No organomegaly. No masses or hernia. No rigidi ty or rebound. Extremities: 2 to 3+ pitting edema bilaterally. No clubbing, cyanosis. Intact pulses. Skin: No rash. Neurologic: Lethargic, but easily arousable. No focal deficits appreciated. Lymph Nodes: No cervical or axillary lymphadenopathy. Investigations: Carbon dioxide 41, BUN 35, creatinine 1.97. NT-proBNP was 4999. Hemoglobin is 11.2 . The chest x-ray showed moderate CHF and pulmonary edema. The troponin is 25. Assessment/recommendations: 1.Acute on chronic systolic heart failure exacerbation. Patient is known to have ejection fraction of 40% to 45%. Severely fluid overloaded on exam. Creatinine is elevated. Recommend to change Lasi x to 80 mg IV q.12 hours. His CO2 level is very high, so recommend to monitor blood gas later on to ensure that he is not going through severe hypercapnia. I recommend to give him a full day of IV raheem tazolamide once his respiratory status is stabilized and this is in replacement of Lasix until his CO 2 level comes down. 2.Acute kidney failure. Creatinine baseline is around 1.2 and it is 1.97, likely due to severe flui d retention. IV diuresis as outlined above. 3.Atrial fibrillation. This is controlled. Continue beta blockers. Patient is on amiodarone. Pat ient is not a candidate for anticoagulation. His hemoglobin is 11.2. 4.Acute hypoxic respiratory failure due to acute congestive heart failure exacerbation. Aggressive diuresis as outlined above. SR/MODL Voice ID: [id number] Report ID: [id number]
--- NOTE | 2022-09-16 19:29 | P.PN ---
Date of Service: 09/17/22 Subjective: urinary retention overnight bladder scan: 845ml; s/p straight cath x1 feels better this morning, asking if he needs a bauer catheter ROS: A complete review of systems was performed and is negative except as mentioned above Physical Exam: Gen: NAD, AOx2 HEENT: normal conjunctiva, sclera anicteric CV: regular rate & rhythm, 2+ edema in lower extremities Pulm: non-labored respirations on 4L NC, diminished Abd: soft, non-tender, non-distended Neuro: normal speech, normal affect, moves all extremities vitals reviewed Problem List acute on chronic hypoxic/hypercapneic respiratory failure secondary to acute CHF, acute COPD acute on chronic diastolic CHF (HFpEF) acute on chronic COPD exacerbation; severe COPD; has BIPAP CAD s/p PCI chronic Afib on anticoagulation IDDM2 HTN Bipolar Dementia Hypothyroidism respiratory failure suspect CHF > COPD but both likely contributing has chronic respiratory difficulty continue breathing treatments, steroids pulm consulted continue oxygen supplementation as needed has O2 at [place] and NIV confirm home meds, restart as appropriate FAVIO unclear if near a new baseline or acutely damaged recently in mid-high 1s; previous baseline: ~1.2 secondary to volume overload, ?retention Urinary retention ?BPH flomax straight cath if needed may need bauer if fails voiding trial further VTE: heparin SQ, Code: full Dispo: back to [place] ~ 2 days Time Spent Managing Pts Care (In Minutes): 35
[2022-09-16] MEDS: METHYLPREDNISOLONE 40 MG INJ IV SCH (20:09)
[2022-09-16] MEDS: ALBUTEROL 2.5 MG/3 ML NEB SOL NEB SCH (20:55)
[2022-09-16] MEDS: IPRATROPIUM BROM 0.5MG/2.5ML NEB SCH (20:55)
[2022-09-16] MEDS: ARFORMOTEROL TARTRATE 15 MCG/2 ML VIAL.NEB NEB SCH (20:55)
[2022-09-16] MEDS: INSULIN -REGULAR HUMAN 50 UNIT/0.5 ML ML SQ SCH (21:00)
[2022-09-16] MEDS: DORZOLAMIDE OPTH SCH (21:00)
[2022-09-16] MEDS ORDERED: HOME MED 1 EA UNK (Insulin Degludec [Tresiba] 100 UNIT/ML Vial) SQ SCH (21:00)
[2022-09-16] MEDS: INSULIN GLARGINE 100 UNIT/ML SQ SCH (21:00)
[2022-09-16] MEDS: BRIMONIDINE OPTH SCH (21:00)
[2022-09-16] MEDS: [UNRECOGNIZED DRUG - OTHER] OPTH SCH (21:00)
[2022-09-16] MEDS: guaiFENesin 100 MG/5 ML UCUP PO PRN (21:38)
[2022-09-16] MEDS: DIVALPROEX NA 125 MG CAP PO SCH (21:39)
[2022-09-16] MEDS: BUSPIRONE HCL 5 MG TABLET PO SCH (21:39)
[2022-09-16] MEDS: MEMANTINE HCL 10 MG TABLET PO SCH (21:40)
[2022-09-16] MEDS: carvediloL 12.5 MG TAB PO SCH (21:40)
[2022-09-16] MEDS: VENLAFAXINE HCL 75 MG TABLET PO SCH (21:40)
[2022-09-16] MEDS: MELATONIN 5 MG TABLET PO SCH (21:40)
[2022-09-16] MEDS: DOXEPIN HCL 25 MG CAP PO SCH (21:40)
[2022-09-16] MEDS: ATORVASTATIN 10 MG TAB PO SCH (21:40)
[2022-09-16] MEDS: ALPRAZOLAM 0.5 MG TABLET PO SCH (21:41)
[2022-09-16] MEDS: cloNIDine HCL 0.1 MG TAB PO SCH (21:41)
[2022-09-16] MEDS: DOCUSATE NA 100 MG CAP PO SCH (21:41)
[2022-09-16] MEDS: HEPARIN 5000 UNIT/ML 1 ML VIAL SQ SCH (21:50)
[2022-09-16 23:38] VITALS: BMI 34.9
[2022-09-17] MEDS ORDERED: HYDRALAZINE HCL 20 MG/ML VIAL IV PRN (00:37)
[2022-09-17] MEDS: METHYLPREDNISOLONE 40 MG INJ IV SCH ×4 (01:01→23:50)
[2022-09-17] MEDS: ALBUTEROL 2.5 MG/3 ML NEB SOL NEB SCH ×4 (02:00→19:35)
[2022-09-17] MEDS: IPRATROPIUM BROM 0.5MG/2.5ML NEB SCH ×4 (02:00→19:35)
[2022-09-17 04:56] LABS: Specific Gravity 1.012 (1.005-1.030); Urine Bacteria None Seen /HPF (<20); Urine Bilirubin NEGATIVE (Negative); Urine Blood Negative (Negative); Urine Clarity Clear (Clear); Urine Color Light-Yellow (Yellow); Urine Glucose NEGATIVE (Negative); Urine Protein TRACE (Negative); Urine RBC <5 /HPF (None Seen); Urine Urobilinogen 1+ (Normal)
[2022-09-17 05:18] LABS: UR PROTEIN 30.1 mg/dL (<11.9); Urine Protein/Creatinine Ratio 0.73 ratio (<0.15)
[2022-09-17 05:30] LABS: UR MICROALBUMIN 11.2 mg/dL (< 1.9)
[2022-09-17 06:05] LABS: Absolute Lymphocytes (CBC) 0.4 K/uL (0.7-4.9); Hematocrit 33.5 % (39.6-49.0); Lymphocytes % 6.8 % (15.3-44.8); MCV 91.6 fL (80-100); MPV 9.4 fL (7.6-11.3); RBC Red Blood Cell Count 3.66 M/uL (4.33-5.43)
[2022-09-17] MEDS: LEVOTHYROXINE SOD 0.1 MG TAB PO SCH (06:19)
[2022-09-17 06:29] LABS: Phosphorus 3.2 mg/dL (2.5-4.9); Uric Acid 9.4 mg/dL (3.5-7.2)
[2022-09-17 06:31] LABS: Magnesium 2.2 mg/dL (1.6-2.4); Potassium 4.3 mmol/L (3.5-5.1)
[2022-09-17] MEDS: INSULIN -REGULAR HUMAN 50 UNIT/0.5 ML ML SQ SCH ×4 (07:30→21:13)
--- NOTE | 2022-09-17 07:37 | EKG ---
Test Date: 2022-09-16 Test Time: 13:02:43 Spa Therapist: JUNAID MEASUREMENT RESULTS: Intervals: Rate: 80 LA: QRSD: 98 QT: 404 QTc: 465 [place]: P: LA: QRS: 59 T: 109 INTERPRETIVE STATEMENTS: Atrial fibrillation Nonspecific ST and T wave abnormality Prolonged QT Abnormal ECG Compared to ECG 08/29/2022 11:11:21 ST (T wave) deviation now present Prolonged QT interval now present Electronically Signed On 09-17-22 07:35:59 RESEARCH NURSE by Kade Garcia
[2022-09-17] MEDS: ARFORMOTEROL TARTRATE 15 MCG/2 ML VIAL.NEB NEB SCH ×2 (08:07→19:35)
--- NOTE | 2022-09-17 08:14 | P.CNS ---
Date of Consult: 09/17/22 Reason for Consult: FAVIO/ CKD Requesting Physician: Kris Arguelles Chief Complaint: Hypoxia History of Present Illness: Patient is a 77-year-old male with a past medical history significant for anxiety disorder, bipolar disorder dementia, COPD, depression, DM 2, HLD, CHF who presents with complaint of shortness of breath onset 2 days ago. Patient reported that he is on home O2 therapy at 3 L/min. Patient reported associated signs and symptoms of cough. Patient is a resident of a residential. Patient reported that he was sent to the ER due to oxygen levels being in the low 80s. Patient was noted to be confused and less responsive at the residential but patient currently alert and oriented x3. Patient denies any other signs and symptoms. Symptoms are aggravated or relieved by nothing. [facility] staff decided to send patient to the hospital for medical evaluation. 14:22 This 77 yrs old Male presents to ER via EMS with complaints of Breathing Difficulty. rt 14:22 The patient has shortness of breath at rest. Onset: The symptoms/episode began/occurred rt at an unknown time. The patient's shortness of breath is alleviated by application of supplemental oxygen. Associated signs and symptoms: Pertinent positives: confusion. Unable to obtain HPI due to altered mental status, baseline dementia. Patient with history of dementia presents to the ED with reported altered mental status. The patient has had decreased responsiveness of her baseline. Was reportedly hypoxic to the low 80s on supplemental O2 by residential. The patient had improvement with CPAP, no longer hypoxic. EMS states the patient has had some improvement of his mental status. No other reported symptoms, symptoms are moderate in severity, no other aggravating or alleviating factors.. Allergies caffeine Allergy (Verified 09/16/22 23:26) Anaphylaxis codeine Allergy (Verified 09/16/22 23:26) Anaphylaxis Home medications list reviewed: Yes Home Medications: ALPRAZolam [Xanax*] 0.25 mg PO BID PRN 04/04/22 Amiodarone HCl [Cordarone*] 200 mg PO DAILY 04/04/22 Arformoterol Tartrate [Brovana] 1 amp NEB BID 04/04/22 Atorvastatin Calcium [Lipitor*] 10 mg PO BEDTIME 04/04/22 Buspirone HCl [Buspar*] 5 mg PO TID 04/04/22 Divalproex [Depakote Sprinkle*] 625 mg PO BID 04/04/22 Docusate [Colace Cap*] 200 mg PO BID 04/04/22 Doxepin HCl [Sinequan*] 25 mg PO BEDTIME 04/04/22 Furosemide [Lasix*] 40 mg PO BID 04/04/22 Insulin Degludec [Tresiba] 55 unit SQ BEDTIME 04/04/22 Levalbuterol HCl [Xopenex] 1 amp NEB BID 04/04/22 Levothyroxine [Synthroid*] 0.1 mg PO DAILY 04/04/22 Lisinopril [Zestril] 5 mg PO DAILY 04/04/22 Melatonin 15 mg PO BEDTIME 04/04/22 Memantine HCl [Namenda*] 10 mg PO BID 04/04/22 Polyethyl Gly 3350 [Glycolax*] 17 g PO DAILY 04/04/22 Potassium Oral Tab [Klor-Con 10 mEq Tab*] 20 meq PO DAILY 04/04/22 Rivaroxaban [Xarelto] 20 mg PO DAILY 04/04/22 Sitagliptin Phosphate [Januvia] 100 mg PO DAILY 04/04/22 Timolol 0.5% Opth [Timoptic 0.5% Opth*] 1 gtt EACH EYE BID 04/04/22 Tramadol HCl [Ultram] 50 mg PO Q6HP PRN 04/04/22 Venlafaxine HCl 75 mg PO BID 04/04/22 acetaZOLAMIDE [Acetazolamide] 250 mg PO DAILY 04/04/22 carvediloL [Coreg*] 12.5 mg PO BID 04/04/22 cloNIDine HCL [Clonidine HCl] 0.1 mg PO BID 04/04/22 guaiFENesin [Guaifenesin] 10 ml PO Q6HP PRN 04/04/22 Albuterol Sulfate [Albuterol Sulfate 0.083% Neb Soln] 2.5 mg IH Q8HP PRN 09/16/22 - Past Medical/Surgical History Diabetic: Yes -: Severe COPD, Pt has a BIPAP -: DM II -: HTN -: HLD -: Bipolar -: Systolic CHF -: CKD III (Dr. Dempsey) -: Heart stents Psychosocial/ Personal History: [facility] resident - Family History Mother Medical History: Stroke Notes: Stroke - Social History Smoking Status: Unknown if ever smoked Alcohol use: No CD- Drugs: No Caffeine use: Yes Place of Residence: [facility] Review of Systems 10-point ROS is otherwise unremarkable Respiratory: SOB with Excertion Cardiovascular: Edema Physical Examination Temp Pulse Resp BP Pulse Ox 97.2 F 93 H 20 144/75 H 98 09/17/22 04:00 09/17/22 04:00 09/17/22 04:00 09/17/22 04:00 09/17/22 04:00 General: Oriented x3, Cooperative HEENT: Atraumatic Neck: Supple Respiratory: Diminished Cardiovascular: Regular rate/rhythm, Edema Gastrointestinal: Soft and benign, Non-distended Musculoskeletal: No clubbing, No contractures Integumentary: No rashes, No cyanosis Neurological: Normal speech Laboratory Data (last 24 hrs) 09/16/22 12:56: Sodium 141, Potassium 4.1, BUN 35 H, Creatinine 1.97 H, Glucose 119 H, Total Bilirubin 0.3, AST 17, ALT 13 L, Alkaline Phosphatase 61 09/16/22 12:56: WBC 7.20, Hgb 11.2 L D, Hct 35.3 L, Plt Count 163 Imagings Data: EXAM DESCRIPTION: RAD - Chest Single View - 09/16/2022 1:36 pm CLINICAL HISTORY: COPD Chest pain. COMPARISON: Chest Single View dated 08/29/2022; Chest Single View dated 04/05/2022; Chest Single View dated 04/03/2022; Chest Single View dated 01/27/2022 FINDINGS: Portable technique limits examination quality. There are moderate bilateral pulmonary opacities seen. Pulmonary edema versus pneumonia pattern. The heart is mildly enlarged. No displaced fractures. IMPRESSION: Moderate CHF favored. Conclusions/Impression: FAVIO in the setting of CRS and Urinary retention CKD III with Proteinuria -No NSAIDs -Monitor for urinary retention -Continue diuresis Hypokalemia -Replete potassium as ordered Alkalosis in the setting of COPD -Continue Diamox -Continue CPAP HTN with CKD/ CHF -Continue Coreg Systolic CHF, A/C LVEF 40-45% Moderate Pulmonary HTN -Continue Lasix DM II with CKD -Continue Lantus -RISS Hypoalbuminemia -Encourage nutrition Anemia in chronic illness -Monitor H&H BPH with LUTS, suspected Urinary retention -Straight cath as needed -Recommend Flomax Case reviewed with Dr. Arguelles Thank you kindly for the consultation
[2022-09-17] MEDS: carvediloL 12.5 MG TAB PO SCH ×2 (08:50→21:12)
[2022-09-17] MEDS: FUROSEMIDE 40 MG/4 ML VIAL IV SCH ×2 (08:50→16:51)
[2022-09-17] MEDS: DIVALPROEX NA 125 MG CAP PO SCH ×2 (08:51→21:11)
[2022-09-17] MEDS: ASPIRIN 81 MG CHEWABLE TABLET PO SCH (08:51)
[2022-09-17] MEDS: VENLAFAXINE HCL 75 MG TABLET PO SCH ×2 (08:51→21:27)
[2022-09-17] MEDS: ALPRAZOLAM 0.5 MG TABLET PO SCH ×2 (08:51→21:12)
[2022-09-17] MEDS: BUSPIRONE HCL 5 MG TABLET PO SCH ×3 (08:51→21:12)
[2022-09-17] MEDS: AMIODARONE HCL 200 MG TAB PO SCH (08:51)
[2022-09-17] MEDS: MEMANTINE HCL 10 MG TABLET PO SCH ×2 (08:52→21:12)
[2022-09-17] MEDS: POTASSIUM CL SA 10 MEQ TAB PO SCH (08:52)
[2022-09-17] MEDS: cloNIDine HCL 0.1 MG TAB PO SCH ×2 (08:52→21:12)
[2022-09-17] MEDS: acetaZOLAMIDE 250 MG TAB PO SCH (08:52)
[2022-09-17] MEDS: ZINC SULFATE 220 MG CAP PO SCH (08:52)
[2022-09-17] MEDS: DOCUSATE NA 100 MG CAP PO SCH ×2 (08:52→21:13)
[2022-09-17] MEDS: HEPARIN 5000 UNIT/ML 1 ML VIAL SQ SCH ×2 (08:53→21:03)
[2022-09-17] MEDS: [UNRECOGNIZED DRUG - OTHER] OPTH SCH ×2 (09:00→21:00)
[2022-09-17] MEDS: TIMOLOL MALEATE 0.5% OPTH SCH (09:00)
[2022-09-17] MEDS: BRIMONIDINE OPTH SCH ×2 (09:00→21:00)
[2022-09-17] MEDS ORDERED: FUROSEMIDE 100 MG/10 ML VIAL IV SCH (09:00)
[2022-09-17] MEDS: OPTH OPTH SCH (09:00)
[2022-09-17] MEDS: DORZOLAMIDE OPTH SCH ×2 (09:00→21:00)
[2022-09-17] MEDS ORDERED: HOME MED 1 EA UNK (Zinc [Zinc] 50 MG Tablet) PO SCH (09:00)
[2022-09-17] MEDS ORDERED: RIVAROXABAN 20 MG TABLET PO SCH (09:00)
[2022-09-17] MEDS: guaiFENesin 100 MG/5 ML UCUP PO PRN (15:01)
--- NOTE | 2022-09-17 18:44 | PN ---
Date of Progress Note: 09/17/2022 Subjective: Seen by bedside. Clinically improving. Breathing a lot better. Review of Systems: No chest pain. He has shortness of breath and orthopnea. Lower extremity edema with improvement. N o nausea, vomiting, diarrhea. No dysuria, polyuria, or urinary urgency. All other systems reviewed are negative. Physical Examination: Vital Signs: Reviewed. Head and Neck: Pupils are equal, reactive to light. Intact eye movements. No JVD. No cervical lym phadenopathy. Neck is supple. Thyroid is not enlarged. Lungs: Positive bilateral air entry with faint crackles in the bases. No accessory muscle use or mu scle retraction. Heart: Regular rate and rhythm. No extra sounds. Abdomen: Soft, nontender. Bowel sounds positive. No organomegaly. No masses or hernia. No rigidi ty or rebound. Extremities: Trace edema bilaterally. Neurologic: Alert, awake, oriented x3. No focal deficits appreciated. Lymph nodes: No cervical or axillary lymphadenopathy. Investigations: BUN is 34, creatinine 1.6. Troponins are negative. Assessment And Recommendations: 1.Acute on chronic systolic heart failure exacerbation, responding very well to treatment. Continue Lasix. Continue to monitor BUN, creatinine, electrolytes. 2.Acute on chronic renal failure. This is likely due to elevated central venous pressure and hence it is improving with diuresis. Continue Lasix. 3.Dyslipidemia. Continue statin. SR/MODL Voice ID: [id number] Report ID: [id number]
[2022-09-17] MEDS: MELATONIN 5 MG TABLET PO SCH (21:00)
[2022-09-17] MEDS: ATORVASTATIN 10 MG TAB PO SCH (21:11)
[2022-09-17] MEDS: DOXEPIN HCL 25 MG CAP PO SCH (21:11)
[2022-09-17] MEDS: INSULIN GLARGINE 100 UNIT/ML SQ SCH (21:13)
[2022-09-17] MEDS: TAMSULOSIN 0.4 MG SR CAP PO SCH (23:50)
[2022-09-18] MEDS: IPRATROPIUM BROM 0.5MG/2.5ML NEB SCH ×4 (01:00→20:20)
[2022-09-18] MEDS: ALBUTEROL 2.5 MG/3 ML NEB SOL NEB SCH ×4 (01:00→20:20)
[2022-09-18 05:14] LABS: Hematocrit 32.1 % (39.6-49.0); MCV 90.7 fL (80-100); MPV 9.3 fL (7.6-11.3); RBC Red Blood Cell Count 3.54 M/uL (4.33-5.43)
[2022-09-18 05:30] LABS: Albumin 2.5 g/dL (3.4-5.0); Magnesium 2.2 mg/dL (1.6-2.4); Phosphorus 2.9 mg/dL (2.5-4.9); Potassium 3.7 mmol/L (3.5-5.1); Uric Acid 8.6 mg/dL (3.5-7.2)
[2022-09-18] MEDS: LEVOTHYROXINE SOD 0.1 MG TAB PO SCH (05:41)
[2022-09-18 06:20] LABS: Hepatitis B Surface Ab - Quant < 3.10 mIU/mL (<8.0); Hepatitis B surface AG Interp. Nonreactive (Nonreactive); Hepatitis C Virus Ab Nonreactive (Nonreactive)
--- NOTE | 2022-09-18 06:58 | P.PN ---
Date of Service: 09/18/22 Subjective: diuresing well breathing much improved - near baseline, edema improved no new/worsening symptoms ROS: A complete review of systems was performed and is negative except as mentioned above Physical Exam: Gen: NAD, AOx2, pleasant HEENT: normal conjunctiva, sclera anicteric CV: regular rate & rhythm, trace-1+ edema in lower extremities Pulm: non-labored respirations on 4L NC, diminished Abd: soft, non-tender, non-distended Neuro: normal speech, normal affect, moves all extremities vitals reviewed Problem List acute on chronic hypoxic/hypercapneic respiratory failure secondary to acute CHF, acute COPD acute on chronic diastolic CHF (HFpEF) acute on chronic COPD exacerbation; severe COPD; has BIPAP CAD s/p PCI chronic Afib on anticoagulation IDDM2 HTN Bipolar Dementia Hypothyroidism respiratory failure secondary to CHF has chronic respiratory difficulty continue breathing treatments, steroids pulm consulted continue oxygen supplementation as needed has O2 at NH and NIV confirm home meds, restart as appropriate IV 80 BID lasix, diuresed well, nearly euvolemic; lower lasix dose 09/18 FAVIO unclear if near a new baseline or acutely damaged improved recently in mid-high 1s; previous baseline: ~1.2 secondary to volume overload, ?retention Urinary retention ?BPH flomax straight cath if needed no further issue VTE: heparin SQ, Code: full Dispo: back to [place], anticipate tomorrow Time Spent Managing Pts Care (In Minutes): 35
[2022-09-18] MEDS: ARFORMOTEROL TARTRATE 15 MCG/2 ML VIAL.NEB NEB SCH ×2 (07:25→20:20)
[2022-09-18] MEDS: INSULIN -REGULAR HUMAN 50 UNIT/0.5 ML ML SQ SCH ×3 (07:30→21:00)
--- NOTE | 2022-09-18 08:46 | P.CNS ---
Date of Consult: 09/18/22 Reason for Consult: Respiratory failure Chief Complaint: Hypoxia History of Present Illness: Patient is 77 [facility] of [facility] bipolar disorder well-known to me recurrent hospital admissions metabolic syndrome he has chronic hyper hypercapnic respiratory failure admitted with worsening shortness of breath does have an NIV or BiPAP at home and was noted to be confused less responsive patient states that the not putting water in his machine therefore not using it he is back to his baseline denies any shortness of breath Allergies caffeine Allergy (Verified 09/16/22 23:26) Anaphylaxis codeine Allergy (Verified 09/16/22 23:26) Anaphylaxis Home Medications: ALPRAZolam [Xanax*] 0.25 mg PO BID PRN 04/04/22 Amiodarone HCl [Cordarone*] 200 mg PO DAILY 04/04/22 Arformoterol Tartrate [Brovana] 1 amp NEB BID 04/04/22 Atorvastatin Calcium [Lipitor*] 10 mg PO BEDTIME 04/04/22 Buspirone HCl [Buspar*] 5 mg PO TID 04/04/22 Divalproex [Depakote Sprinkle*] 625 mg PO BID 04/04/22 Docusate [Colace Cap*] 200 mg PO BID 04/04/22 Doxepin HCl [Sinequan*] 25 mg PO BEDTIME 04/04/22 Furosemide [Lasix*] 40 mg PO BID 04/04/22 Insulin Degludec [Tresiba] 55 unit SQ BEDTIME 04/04/22 Levalbuterol HCl [Xopenex] 1 amp NEB BID 04/04/22 Levothyroxine [Synthroid*] 0.1 mg PO DAILY 04/04/22 Lisinopril [Zestril] 5 mg PO DAILY 04/04/22 Melatonin 15 mg PO BEDTIME 04/04/22 Memantine HCl [Namenda*] 10 mg PO BID 04/04/22 Polyethyl Gly 3350 [Glycolax*] 17 g PO DAILY 04/04/22 Potassium Oral Tab [Klor-Con 10 mEq Tab*] 20 meq PO DAILY 04/04/22 Rivaroxaban [Xarelto] 20 mg PO DAILY 04/04/22 Sitagliptin Phosphate [Januvia] 100 mg PO DAILY 04/04/22 Timolol 0.5% Opth [Timoptic 0.5% Opth*] 1 gtt EACH EYE BID 04/04/22 Tramadol HCl [Ultram] 50 mg PO Q6HP PRN 04/04/22 Venlafaxine HCl 75 mg PO BID 04/04/22 acetaZOLAMIDE [Acetazolamide] 250 mg PO DAILY 04/04/22 carvediloL [Coreg*] 12.5 mg PO BID 04/04/22 cloNIDine HCL [Clonidine HCl] 0.1 mg PO BID 04/04/22 guaiFENesin [Guaifenesin] 10 ml PO Q6HP PRN 04/04/22 Albuterol Sulfate [Albuterol Sulfate 0.083% Neb Soln] 2.5 mg IH Q8HP PRN 09/16/22 - Past Medical/Surgical History Diabetic: Yes -: Severe COPD, Pt has a BIPAP -: DM II -: HTN -: HLD -: Bipolar -: Systolic CHF -: CKD III (Dr. Dempsey) -: Heart stents Psychosocial/ Personal History: [facility] resident - Family History Mother Medical History: Stroke Notes: Stroke - Social History Smoking Status: Unknown if ever smoked Alcohol use: No CD- Drugs: No Caffeine use: Yes Place of Residence: [facility] Review of Systems Unremarkable General: Weakness Respiratory: Shortness of Breath Physical Examination Temp Pulse Resp BP Pulse Ox 97.9 F 79 18 153/84 H 97 09/18/22 08:00 09/18/22 08:00 09/18/22 08:00 09/18/22 08:00 09/18/22 08:00 General: Alert, In no apparent distress, Oriented x3 Respiratory: Clear to auscultation bilaterally, Diminished Cardiovascular: No edema, Regular rate/rhythm, Normal S1 S2 - Problems (1) Chronic respiratory failure Current Visit: Yes Status: Acute Plan: Patient is 78 years of age history of chronic respiratory failure has BiPAP at home. With altered mental status he is chronically hypercapnic his chest x-ray is clear there is no evidence of sepsis labs chemistries all reviewed patient can be discharged home he has bronchodilators at home informs me that the not putting water into his BiPAP machine need to follow-up with me as an outpatient signs are stable no change in his home medications discharge Qualifiers: Respiratory failure complication: hypoxia and hypercapnia Qualified C ode(s): J96.11 - Chronic respiratory failure with hypoxia; J96.12 - Chronic respiratory failure with hypercapnia; J96.12 - Chronic respiratory failure with hypercapnia
[2022-09-18] MEDS ORDERED: POTASSIUM 25 MEQ EFFERV TAB PO ONE (09:00)
[2022-09-18] MEDS: TIMOLOL MALEATE 0.5% OPTH SCH (09:00)
[2022-09-18] MEDS: BRIMONIDINE OPTH SCH ×2 (09:00→21:00)
[2022-09-18] MEDS: [UNRECOGNIZED DRUG - OTHER] OPTH SCH ×2 (09:00→21:00)
[2022-09-18] MEDS: DORZOLAMIDE OPTH SCH ×2 (09:00→21:00)
[2022-09-18] MEDS: OPTH OPTH SCH (09:00)
[2022-09-18] MEDS: HEPARIN 5000 UNIT/ML 1 ML VIAL SQ SCH ×2 (10:05→21:29)
[2022-09-18] MEDS: MEMANTINE HCL 10 MG TABLET PO SCH ×2 (10:06→21:28)
[2022-09-18] MEDS: DIVALPROEX NA 125 MG CAP PO SCH ×2 (10:06→21:28)
[2022-09-18] MEDS: predniSONE 20 MG TAB PO SCH ×2 (10:06→21:29)
[2022-09-18] MEDS: cloNIDine HCL 0.1 MG TAB PO SCH ×2 (10:06→21:30)
[2022-09-18] MEDS: carvediloL 12.5 MG TAB PO SCH ×2 (10:07→21:31)
[2022-09-18] MEDS: ASPIRIN 81 MG CHEWABLE TABLET PO SCH (10:07)
[2022-09-18] MEDS: FUROSEMIDE 40 MG/4 ML VIAL IV SCH ×2 (10:07→16:39)
[2022-09-18] MEDS: DOCUSATE NA 100 MG CAP PO SCH ×2 (10:08→21:29)
[2022-09-18] MEDS: acetaZOLAMIDE 250 MG TAB PO SCH (10:08)
[2022-09-18] MEDS: VENLAFAXINE HCL 75 MG TABLET PO SCH ×2 (10:08→21:28)
[2022-09-18] MEDS: ALPRAZOLAM 0.5 MG TABLET PO SCH ×2 (10:08→21:28)
[2022-09-18] MEDS: BUSPIRONE HCL 5 MG TABLET PO SCH ×3 (10:08→21:28)
[2022-09-18] MEDS: AMIODARONE HCL 200 MG TAB PO SCH (10:08)
[2022-09-18] MEDS: ZINC SULFATE 220 MG CAP PO SCH (10:09)
[2022-09-18] MEDS: POTASSIUM CL SA 10 MEQ TAB PO SCH (10:09)
[2022-09-18] MEDS: guaiFENesin 100 MG/5 ML UCUP PO PRN ×2 (10:37→23:24)
--- NOTE | 2022-09-18 11:24 | P.PN ---
Nephrology note: (S) Pt reports urinating well on IV lasix diuresis, reports breathing easier, on LFNC, no other acute complaints, denies CP, abd pain or edema (O) Vitals reviewed in the EMR General: NAD HEENT: Atraumatic, sclera anicteric, NC present Neck: Supple Respiratory: b/l air entry, no rhonchi Cardiovascular: Regular rate/rhythm mostly Gastrointestinal: Soft and benign, Non-distended Musculoskeletal: No clubbing, No contractures. No sig peripheral edema Integumentary: No rashes, No cyanosis noted Neurological: Normal speech, awake, alert, mild pill rolling tremor Laboratory Data (last 24 hrs) Reviewed in the EMR Conclusions/Impression: Stage 1 FAVIO on underlying potential CKD Stage IIIa with mild fluctuations in Cr levels seen over the past year. Possible smaller Rt kidney, prior CT in described Rt kidney as atrophic -Cr level has downward trended, cont to monitor closely on diuresis and with any relative BP lowering Chronic resp acidosis 2nd to COPD/hypercapnic resp insufficiency off BIPAP currently -On low dose Diamox, ok to cont. COPD management per primary team Metab alkalosis compensatory -Cont to monitor on Diamox and with addition of Spironolactone. Target K > 4.0 HTN with CKD/ CHF -BP now relatively lower in the 100s systolic, will not employ ACEi or ARB currently Systolic CHF, A/C LVEF 40-45% Moderate Pulmonary HTN -Cont lasix diuresis, but will lower dose slightly. Will add Aldactone, if tolerated, with holding parameters. Ricky Olson MD, PANKAJ
--- NOTE | 2022-09-18 19:15 | PN ---
Date of Progress Note: 09/18/2022 Subjective: Seen at bedside, doing much better. He is off the BiPAP, lying flat. No shortness of b reath or orthopnea. Review of Systems: No chest pain, shortness of breath, orthopnea, cough, nausea, vomiting, or diarrhea. No dysuria, jose yuria, or urinary urgency. All other systems reviewed are negative. Physical Examination: Vital Signs: Temperature is 97.9, pulse 78, breathing at 18, blood pressure is 137/84, and saturatin g 95% on room air. General: A pleasant elderly male, morbidly obese, no apparent distress. Head And Neck: Pupils are equal and reactive to light. Intact eye movements. No JVD. No cervical lymphadenopathy. Neck is supple. Thyroid is not enlarged. Lungs: Clear to auscultation bilaterally. No rhonchi, wheezing, or crackles. No accessory muscle u se. Heart: Irregular. No extra sounds. Abdomen: Soft, nontender. Bowel sounds positive. No organomegaly. No masses or hernia. No rigidi ty or rebound. Extremities: No clubbing or cyanosis. No edema. Skin: No rash. Neurologic: Alert, awake, and oriented x3. No acute focal deficits appreciated. Investigations: BUN is 43, creatinine 1.56 and his hemoglobin is 10.6. Troponin has been negative. Assessment/recommendation: 1.Hntof-[id number] congestive heart failure exacerbation. He appears to be euvolemic now. Recommen d to switch his Lasix to oral 40 mg twice a day in preparation for discharge. Strict low-sodium diet is recommended and daily body weight. 2.Sxhpg-[id number]-[id number] renal failure. This is likely due to the fluid retention and elevated central ve nous pressure, improved with diuresis. Plan as above and the patient is seeing a electro tech. 3.Hypertension. Blood pressure is acceptable. Continue current management. SR/MODL Voice ID: [id number] Report ID: [id number]
[2022-09-18] MEDS: TAMSULOSIN 0.4 MG SR CAP PO SCH (21:28)
[2022-09-18] MEDS: INSULIN GLARGINE 100 UNIT/ML SQ SCH (21:29)
[2022-09-18] MEDS: DOXEPIN HCL 25 MG CAP PO SCH (21:29)
[2022-09-18] MEDS: ATORVASTATIN 10 MG TAB PO SCH (21:29)
[2022-09-18] MEDS: MELATONIN 5 MG TABLET PO SCH (21:29)
[2022-09-19] MEDS: IPRATROPIUM BROM 0.5MG/2.5ML NEB SCH ×2 (02:00→08:24)
[2022-09-19] MEDS: ALBUTEROL 2.5 MG/3 ML NEB SOL NEB SCH ×2 (02:00→08:24)
[2022-09-19 03:33] LABS: Potassium 3.7 mmol/L (3.5-5.1)
[2022-09-19] MEDS: LEVOTHYROXINE SOD 0.1 MG TAB PO SCH (06:05)
[2022-09-19] MEDS: INSULIN -REGULAR HUMAN 50 UNIT/0.5 ML ML SQ SCH (07:30)
[2022-09-19] MEDS: ARFORMOTEROL TARTRATE 15 MCG/2 ML VIAL.NEB NEB SCH (08:24)
[2022-09-19 08:28] VITALS: BP 157/77; TEMP 97
[2022-09-19] MEDS: DORZOLAMIDE OPTH SCH (09:00)
[2022-09-19] MEDS ORDERED: SPIRONOLACTONE 25 MG TABLET PO SCH (09:00)
[2022-09-19] MEDS ORDERED: acetaZOLAMIDE 250 MG TAB PO SCH (09:00)
[2022-09-19] MEDS: [UNRECOGNIZED DRUG - OTHER] OPTH SCH (09:00)
[2022-09-19] MEDS: POTASSIUM CL SA 10 MEQ TAB PO SCH (09:00)
[2022-09-19] MEDS ORDERED: POTASSIUM CL SA 10 MEQ TAB PO ONE (09:00)
[2022-09-19] MEDS: BRIMONIDINE OPTH SCH (09:00)
[2022-09-19] MEDS: OPTH OPTH SCH (09:00)
[2022-09-19] MEDS: TIMOLOL MALEATE 0.5% OPTH SCH (09:00)
[2022-09-19 09:02] VITALS: O2SAT 97
[2022-09-19] MEDS: guaiFENesin 100 MG/5 ML UCUP PO PRN (09:37)
[2022-09-19] MEDS: FUROSEMIDE 40 MG/4 ML VIAL IV SCH (09:38)
[2022-09-19] MEDS: MEMANTINE HCL 10 MG TABLET PO SCH (09:38)
[2022-09-19] MEDS: cloNIDine HCL 0.1 MG TAB PO SCH (09:39)
[2022-09-19] MEDS: ALPRAZOLAM 0.5 MG TABLET PO SCH (09:39)
[2022-09-19] MEDS: BUSPIRONE HCL 5 MG TABLET PO SCH (09:40)
[2022-09-19] MEDS: AMIODARONE HCL 200 MG TAB PO SCH (09:40)
[2022-09-19] MEDS: predniSONE 20 MG TAB PO SCH (09:40)
[2022-09-19] MEDS: DIVALPROEX NA 125 MG CAP PO SCH (09:40)
[2022-09-19] MEDS: carvediloL 12.5 MG TAB PO SCH (09:40)
[2022-09-19] MEDS: ZINC SULFATE 220 MG CAP PO SCH (09:40)
[2022-09-19] MEDS: DOCUSATE NA 100 MG CAP PO SCH (09:40)
[2022-09-19] MEDS: ASPIRIN 81 MG CHEWABLE TABLET PO SCH (09:40)
[2022-09-19] MEDS: VENLAFAXINE HCL 75 MG TABLET PO SCH (09:40)
[2022-09-19] MEDS: HEPARIN 5000 UNIT/ML 1 ML VIAL SQ SCH (10:20)
--- NOTE | 2022-09-19 10:20 | P.PN ---
Date of Service: 09/19/22 Vital Signs Temp Pulse Resp BP Pulse Ox 97.0 F 77 18 157/77 H 98 09/19/22 08:00 09/19/22 09:40 09/19/22 08:00 09/19/22 09:40 09/19/22 08:00 Medications Acetaminophen (Acetaminophen 325 Mg Tablet) 650 mg PO Q6H PRN PRN Reason: TEMP > 100.4' F Hydrocodone Bitart/Acetaminophen (Hydrocodone/Apap 5/325 Mg Tab) 1 tab PO Q6H PRN PRN Reason: Pain scale 5-7 (Moderate) Acetazolamide (Acetazolamide 250 Mg Tab) 250 mg PO DAILY [facility] Last Admin: 09/19/22 09:39 Dose: 250 mg Albuterol Sulfate (Albuterol 2.5 Mg/3 Ml Neb Paty) 2.5 mg NEB [id number] [facility] Last Admin: 09/19/22 08:24 Dose: 2.5 mg Alprazolam (Alprazolam 0.5 Mg Tablet) 0.25 mg PO BID [facility] Last Admin: 09/19/22 09:39 Dose: 0.25 mg Amiodarone HCl (Amiodarone Hcl 200 Mg Tab) 200 mg PO DAILY [facility] Last Admin: 09/19/22 09:40 Dose: 200 mg Arformoterol Tartrate (Arformoterol Tartrate 15 Mcg/2 Ml Vial.Neb) 15 mcg NEB BIDRESP [facility] Last Admin: 09/19/22 08:24 Dose: 15 mcg Aspirin (Aspirin 81 Mg Chewable Tablet) 81 mg PO DAILY [facility] Last Admin: 09/19/22 09:40 Dose: 81 mg Atorvastatin Calcium (Atorvastatin 10 Mg Tab) 10 mg PO BEDTIME [facility] Last Admin: 09/18/22 21:29 Dose: 10 mg Buspirone HCl (Buspirone Hcl 5 Mg Tablet) 5 mg PO TID [facility] Last Admin: 09/19/22 09:40 Dose: 5 mg Carvedilol (Carvedilol 12.5 Mg Tab) 12.5 mg PO BID [facility] Last Admin: 09/19/22 09:40 Dose: 12.5 mg Clonidine HCl (Clonidine Hcl 0.1 Mg Tab) 0.1 mg PO BID [facility] Last Admin: 09/19/22 09:39 Dose: 0.1 mg Divalproex Sodium (Divalproex Na 125 Mg Cap) 625 mg PO BID [facility] Last Admin: 09/19/22 09:40 Dose: 625 mg Docusate Sodium (Docusate Na 100 Mg Cap) 200 mg PO BID [facility] Last Admin: 09/19/22 09:40 Dose: 200 mg Doxepin HCl (Doxepin Hcl 25 Mg Cap) 25 mg PO BEDTIME [facility] Last Admin: 09/18/22 21:29 Dose: 25 mg Furosemide (Furosemide 40 Mg/4 Ml Vial) 40 mg IV BIDL [facility] Last Admin: 09/19/22 09:38 Dose: 40 mg Guaifenesin (Guaifenesin 100 Mg/5 Ml Ucup) 200 mg PO Q6HP PRN PRN Reason: COUGH Last Admin: 09/19/22 09:37 Dose: 200 mg Heparin Sodium (Porcine) (Heparin 5000 Unit/Ml 1 Ml Vial) 5,000 unit SQ Q12HR [facility] Last Admin: 09/18/22 21:29 Dose: 5,000 unit Home Med (Brimonidine/Dorzolamide/Pf [Brimonidine 0.15%-Dorzolam 2%]) 1 gtt OPTH BID [facility] Last Admin: 09/19/22 09:00 Dose: Not Given Home Med (Home Med 1 Ea Unk [Timolol Maleate 0.5% Opth 5 Ml Btl]) 1 ea OPTH DAILY [facility] Last Admin: 09/19/22 09:00 Dose: Not Given Hydralazine HCl (Hydralazine Hcl 20 Mg/Ml Vial) 10 mg IV Q6HP PRN PRN Reason: Titrate to SBP (MUST DEFINE) Insulin Glargine (Insulin Glargine 100 Unit/Ml) 55 unit SQ BEDTIME [facility] Last Admin: 09/18/22 21:29 Dose: 55 unit Insulin Human Regular (Insulin -Regular Human 50 Unit/0.5 Ml Ml) 0 unit SQ ACHS [facility]; Protocol Last Admin: 09/19/22 07:30 Dose: Not Given Ipratropium [place] (Ipratropium Brom 0.5mg/2.5ml) 0.5 mg NEB [id number] [facility] Last Admin: 09/19/22 08:24 Dose: 0.5 mg Levothyroxine Sodium (Levothyroxine Sod 0.1 Mg Tab) 0.1 mg PO DAILYAC [facility] Last Admin: 09/19/22 06:05 Dose: 0.1 mg Melatonin (Melatonin 5 Mg Tablet) 15 mg PO BEDTIME [facility] Last Admin: 09/18/22 21:29 Dose: 15 mg Memantine (Memantine Hcl 10 Mg Tablet) 10 mg PO BID [facility] Last Admin: 09/19/22 09:38 Dose: 10 mg Ondansetron HCl (Ondansetron 4 Mg/2 Ml Vial) 4 mg IV Q6HP PRN PRN Reason: NAUSEA / VOMITING Polyethylene Glycol (Polyethyl Gly 3350 17 Gm/Dose) 17 gm PO DAILYPRN PRN PRN Reason: CONSTIPATION Potassium Chloride (Potassium Cl Sa 10 Meq Tab) 20 meq PO DAILY [facility] Last Admin: 09/19/22 09:00 Dose: Not Given Prednisone (Prednisone 20 Mg Tab) 20 mg PO BID [facility] Last Admin: 09/19/22 09:40 Dose: 20 mg Sodium Chloride (Flush Normal Saline 10 Ml) 10 ml IV BID [facility] Last Admin: 09/19/22 09:00 Dose: 10 ml Spironolactone (Spironolactone 25 Mg Tablet) 25 mg PO DAILY [facility] Last Admin: 09/19/22 09:40 Dose: 25 mg Tamsulosin HCl (Tamsulosin 0.4 Mg Sr Cap) 0.4 mg PO BEDTIME [facility] Last Admin: 09/18/22 21:28 Dose: 0.4 mg Venlafaxine HCl (Venlafaxine Hcl 75 Mg Tablet) 75 mg PO BID [facility] Last Admin: 09/19/22 09:40 Dose: 75 mg Zinc Sulfate (Zinc Sulfate 220 Mg Cap) 220 mg PO DAILY [facility] Last Admin: 09/19/22 09:40 Dose: 220 mg Assessment/ Plan: Nephrology No dyspnea No chest pain No acute events overnight Vitals, medications, blood work and imaging reviewed in the chart. General: Oriented x3, Cooperative HEENT: Atraumatic Neck: Supple Respiratory: Diminished Cardiovascular: Regular rate/rhythm, Edema Gastrointestinal: Soft and benign, Non-distended Musculoskeletal: No clubbing, No contractures Integumentary: No rashes, No cyanosis Neurological: Normal speech Laboratory Data (last 24 hrs) 09/16/22 12:56: Sodium 141, Potassium 4.1, BUN 35 H, Creatinine 1.97 H, Glucose 119 H, Total Bilirubin 0.3, AST 17, ALT 13 L, Alkaline Phosphatase 61 09/16/22 12:56: WBC 7.20, Hgb 11.2 L D, Hct 35.3 L, Plt Count 163 Imagings Data: EXAM DESCRIPTION: RAD - Chest Single View - 09/16/2022 1:36 pm CLINICAL HISTORY: COPD Chest pain. COMPARISON: Chest Single View dated 08/29/2022; Chest Single View dated 04/05/2022; Chest Single View dated 04/03/2022; Chest Single View dated 01/27/2022 FINDINGS: Portable technique limits examination quality. There are moderate bilateral pulmonary opacities seen. Pulmonary edema versus pneumonia pattern. The heart is mildly enlarged. No displaced fractures. IMPRESSION: Moderate CHF favored. Conclusions/Impression: FAVIO in the setting of CRS and Urinary retention CKD III with Proteinuria Atrophic right kidney -No NSAIDs -Monitor for urinary retention -Continue diuresis Hypokalemia -Replete potassium as ordered Alkalosis in the setting of COPD -Continue Diamox -Continue CPAP Hx nephrolithiasis HTN with CKD/ CHF -Continue Coreg Systolic CHF, A/C LVEF 40-45% Moderate Pulmonary HTN -Continue Lasix DM II with CKD -Continue Lantus -RISS Hypoalbuminemia -Encourage nutrition Anemia in chronic illness -Monitor H&H BPH with LUTS, suspected Urinary retention -Straight cath as needed -Continue Flomax
[2022-09-20 10:06] LABS: HIV AG/AB 4TH GEN Non-reactive (Non-reactive)
[2022-09-20 17:35] LABS: Albumin, (SPE) 2.9 g/dL (3.8-4.8); Alpha-1-Globulins 0.3 g/dL (0.2-0.3); Alpha-2-Globulins 0.9 g/dL (0.5-0.9); Gamma Globulins 1.3 g/dL (0.8-1.7); INTERPRETATION REPORT
== END 2022-09-19 11:45 | DRG 291 ==
LOC: ER 12:37 → ERHOLD 16:26 → 2ND 17:35
PROVIDERS: ADMIT Internal Medicine; ATTEND Hospitalist
PROC: 5A09457 Assistance with Respiratory Ventilation, 24-96 Consecutive Hours, Continuous Positive Airway Pressure (ICD-10-PCS; principal; 2022-09-16)
DX: I13.0 Hypertensive heart and chronic kidney disease with heart failure and stage 1 through stage 4 chronic kidney disease, or unspecified chronic kidney disease (principal); I50.23 Acute on chronic systolic (congestive) heart failure; J96.02 Acute respiratory failure with hypercapnia; J96.21 Acute and chronic respiratory failure with hypoxia; N17.9 Acute kidney failure, unspecified; J44.1 Chronic obstructive pulmonary disease with (acute) exacerbation; I48.20 Chronic atrial fibrillation, unspecified; E87.3 Alkalosis; G93.49 Other encephalopathy; N18.31 Chronic kidney disease, stage 3a; E11.22 Type 2 diabetes mellitus with diabetic chronic kidney disease; D63.1 Anemia in chronic kidney disease; E78.5 Hyperlipidemia, unspecified; F31.9 Bipolar disorder, unspecified; E87.6 Hypokalemia; E03.9 Hypothyroidism, unspecified; G47.33 Obstructive sleep apnea (adult) (pediatric); E88.09 Other disorders of plasma-protein metabolism, not elsewhere classified; F03.90 Unspecified dementia, unspecified severity, without behavioral disturbance, psychotic disturbance, mood disturbance, and anxiety; I27.20 Pulmonary hypertension, unspecified; I25.10 Atherosclerotic heart disease of native coronary artery without angina pectoris; N40.1 Benign prostatic hyperplasia with lower urinary tract symptoms; R33.8 Other retention of urine; Z88.5 Allergy status to narcotic agent; Z95.5 Presence of coronary angioplasty implant and graft; Z79.4 Long term (current) use of insulin; Z91.09 Other allergy status, other than to drugs and biological substances; Z99.89 Dependence on other enabling machines and devices; Z79.01 Long term (current) use of anticoagulants; Z99.81 Dependence on supplemental oxygen; Z79.899 Other long term (current) drug therapy; Z79.890 Hormone replacement therapy; Z20.822 Contact with and (suspected) exposure to COVID-19
CPT/HCPCS: 0240U; 36415; 51702; 70450; 71045; 80048; 80053; 80069; 81001; 81003; 82043; 82570; 82805; 82947; 83735; 83880; 84100; 84156; 84165; 84484; 84550; 85025; 85027; 86038; 86160; 86335; 86706; 86803; 87340; 87389; 93005; 94640; 94660; 94760; 96374; 99285; J1644; J1815; J1940; J2920; J7512; J7605; J7613; J7644

== ENCOUNTER 2022-10-05 09:20 | Emergency (ER) | payer OTHER ==
--- OUTSIDE RECORDS SUMMARY | 2022-10-05 09:44 | XMS REPORT | Continuity of Care Document ---
:1945 Author Organization [facility] t Address Critical access hospital [address] [place] [address] Care Team Providers Name Role Phone PCP, PATIENT DOES NOT HAVE A Primary Care Physician UnavailJenna Mckeon Attending Clinician Unavailable ANDREW OVIEDO Attending Clinician Unavailable Andrew Oviedo MD Attending Clinician Erlin Rodriguez MD Attending Clinician Doctor Unassigned, [place] Attending Clinician Unavailable Giancarlo Murphy Attending Clinician Farhad Rodriguez III Attending Clinician Sofi Rapp Attending Clinician Ant Tracy Jr Attending Clinician Angel Gold Attending Clinician Negro Dawkins Attending Clinician ANDREW OVIEDO Admitting Clinician Unavailable Giancarlo Murphy Admitting Clinician Sofi Rapp Admitting Clinician Dc Maradiaag Admitting Clinician Negro Dawkins Admitting Clinician Payers Payer Name Policy Type Policy Number Effective Date Expiration Date S [facility] [id number] MEDICARE PART A \\T\\ [id number] 2001 B 00:00:00 MEDICAID OF [place] [id number] 2012 00:00:00 Problems Condition Condition Condition Status Onset Resolution Last Treating Co mments Source Name Details Category Date Date Treatment Clinician Date ABD PAIN ABD PAIN Diagnosis Active 2017-11-11 Memoria Active 05-22 12:12:00 l 05/22/2017 08:00: Rudy [place] 00 [place] WOUND WOUND Diagnosis Active 2017-04-03 Mem oria Active 02-27 16:00:00 l 02/27/2017 08:00: Rudy [place] 00 [place] LEG LEG Diagnosis Active 2015-092016-07-29 Mem oria WEAKNESS WEAKNESS 09-26 15:57:00 l BILATERAL BILATERAL 00:00: Dorinda arenas Active 00 07/27/2016 [facility] WEAKNESS WEAKNESS Diagnosis Active 2016-05-30 Memoria Active 05-30 22:11:00 l 05/30/2016 07:00: Rudy [place] 00 [place] AMS AMS Diagnosis Active 2015-02-20 Mem oria Active 02-17 16:39:00 l 02/17/2015 00:00: Rudy [place] 00 [place] SOB SOB Diagnosis Active 2013-092015-05-19 Mem oria Active 0 09:41:00 l 06/08/2014 00:00: Rudy shankar 00 [facility] Diabetes Diabetes Disease Active Unive rs mellitus mellitus 8-10 ity of type 2, type 2, 00:00: [place] controlled controlled 00 Al dical Branch HLD HLD Disease Active Univers (hyperlipi (hyperlipi 8-10 it y of demia) demia) 00:00: [place] 00 Medical Branch Essential Essential Disease Active Uni vers hypertensi hypertensi 8-10 it y of on, benign [place] Schizoaffe Schizoaffe Disease Active U nivers ctive ctive 8-10 ity of disorder disorder 00:00: [place] 00 Medical Branch Low Low Disease Active Univers testostero testostero 8-10 it y of ne ne 00:00: [place] 00 Medical Branch COPD COPD Disease Active Univers (chronic (chronic 8-10 ity of obstructiv obstructiv [place] Medical pulmonary pulmonary Bran ch disease) disease) CAD CAD Disease Active Univers (coronary (coronary 8-10 ity of artery artery 00:00: [place] disease) disease) 00 Medica l Branch Glaucoma Glaucoma Disease Active Unive rs 8-10 ity of 00:00: 00 Medical Branch Anxiety Anxiety Disease Active Overview: Univ [facility] state state 8-10 Formattin ity of 00:00: g of this 00 note Medical might be Branch different from the original. 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 use Congestive Congestive Problem Active C ommon heart heart Spirit failure, failure, - [facility] unspecifie unspecifie [facility] d HF d [facility] chronicity chronicity Me dical , , Center unspecifie unspecifie d heart d heart failure failure type type Essential Essential Problem Active Com mon (primary) (primary) Spir it hypertensi hypertensi - [facility] on on [facility] Depression Depression Problem Active C ommon with with Spirit anxiety anxiety - [facility] Acquired Acquired Problem Active Commo n hypothyroi hypothyroi Sp leila dism dism [facility] Bipolar 1 Bipolar 1 Problem Active Com mon disorder, disorder, Spir it depressed, depressed, - [facility] full full St remission remission [facility] Hyperlipid Hyperlipid Problem Active C ommon emia, emia, Spirit unspecifie unspecifie - [facility]I d d St hyperlipid hyperlipid Jade ke emia type emia type [facility] Seasonal Seasonal Problem Active Commo n allergies allergies Spir it - [facility] Chronic Chronic Problem Active Common obstructiv obstructiv Sp leila e e - [facility]I pulmonary pulmonary St disease, disease, [facility] unspecifie unspecifie Me dical d COPD d COPD Center type type Type 2 Type 2 Problem Active Common diabetes diabetes Spirit mellitus mellitus - [facility] with foot with foot St ulcer ulcer [facility] Non-pressu Non-pressu Problem Active C ommon re chronic re chronic Sp leila ulcer of ulcer of - [facility]I other part other part St of right of right [facility] foot with foot with Medi magda other other Center specified specified severity severity Recurrent Recurrent Problem Active Com mon [place] Spirit while while - [facility]I walking walking [facility] Chronic Chronic Problem Active Common kidney kidney Spirit disease, disease, - [facility]I unspecifie unspecifie St d CKD d CKD 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 - [facility] Bipolar Bipolar Problem Resolve 2017-06-13 M emoria (qualifier (qualifier d 00:54:32 l value) value) [place] Resolved Problem 06/13/2017 [facility] Outpatient Imaging [facility] Acute Acute Problem Resolve 2017-06-13 David cedrick congestive congestive d 00:54:32 l heart heart [place] failure failure (disorder) (disorder) Resolved Problem 06/13/2017 [facility] Outpatient Imaging [facility] Hypertensi Hypertens Problem Resolve 2017-06-13 Memoria ve forest d 00:54:32 l disorder, disorder, Herm deepa systemic systemic arterial arterial (disorder) (disorder) Resolved Problem 06/13/2017 [facility] Outpatient Imaging [facility] Schizophre Schizophr Problem Resolve 2017-06-13 Memoria boubacar enia d 00:54:32 l (disorder) (disorder) He rmann Resolved Problem 06/13/2017 [facility] Outpatient Imaging [facility] 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 00:54:32 l (disorder) (disorder) He rmann Resolved Problem 06/13/2017 [facility] Peptic Peptic Problem Resolve 2017-06-13 Mem oria ulcer with ulcer with d 00:54:32 l hemorrhage hemorrhage He rmann (disorder) (disorder) Resolved Problem 06/13/2017 [facility] Anxiety Anxiety Problem Active 2017-06-13 M emoria (finding) (finding) 00:54:32 l Active [place] Problem 06/13/2017 [facility] Outpatient Imaging [facility] Arthritis Arthritis Problem Active 2017-06-13 Memoria (disorder) (disorder) 00:54:32 l Active [place] Problem 06/13/2017 [facility] Outpatient Imaging [facility] Depressive Depressiv Problem Active 2017-06-13 Memoria disorder e disorder 00:54:32 l (disorder) (disorder) He rmann Active Problem 06/13/2017 [facility] Outpatient Imaging [facility] Diabetes Diabetes Problem Active 2017-06-13 Memoria mellitus mellitus 00:54:32 l (disorder) (disorder) He rmann Active Problem 06/13/2017 [facility] Outpatient Imaging [facility] Gastroesop Gastroeso Problem Active 2017-06-13 Memoria hageal phageal 00:54:32 l reflux reflux [place] disease disease (disorder) (disorder) Active Problem 06/13/2017 [facility] Outpatient Imaging [facility] Narcosis Narcosis Problem Active 2017-06-13 Memoria (finding) (finding) 00:54:32 l Active [place] Problem 06/13/2017 [facility] Outpatient Imaging [facility] CHR AIRWAY CHR Diagnosis Active 2015-05-19 Memoria OBSTRUCT AIRWAY 09:41:00 l NEC OBSTRUCT [place] NEC Active [facility] ALTERED ALTERED Diagnosis Active 2015-02-20 Memoria MENTAL MENTAL 16:39:00 l STATUS STATUS [place] Active [facility] UNSPECIFIE UNSPECIFI Diagnosis Active 2017-04-03 Memoria D OPEN ED OPEN 16:00:00 l WOUND, WOUND, [place] RIGHT RIGHT FOOT, SUBS FOOT, SUBS Active [facility] NON-PRS NON-PRS Diagnosis Active 2015-09-18 Memoria CHRONIC CHRONIC 16:01:00 l ULCER OTH ULCER OTH Herm deepa PRT RIGHT PRT RIGHT FOOT FOOT Active [facility] TYPE 2 TYPE 2 Diagnosis Active 2015-11-22 M emoria DIABETES W DIABETES W 08:18:00 l DIABETIC DIABETIC Rudy n PERIPHERAL PERIPHERAL AN AN Active [facility] TINEA TINEA Diagnosis Active 2016-05-07 Mem oria UNGUIUM UNGUIUM 16:57:00 l Active Rudy n [facility] TYPE 2 TYPE 2 Diagnosis Active 2016-05-07 Me moria DIABETES DIABETES 16:57:00 l MELLITUS MELLITUS Rudy n WITH WITH DIABETIC P DIABETIC P Active [facility] NON-PRS NON-PRS Diagnosis Active 2016-01-09 Memoria CHRONIC CHRONIC 15:34:00 l ULCER OTH ULCER OTH Herm deepa PRT R FOOT PRT R FOOT STRE[address] STRE[address] Active [facility] CORNS AND CORNS AND Diagnosis Active 2016-05-07 Memoria CALLOSITIE CALLOSITIE 16:57:00 l S S Active [place] [facility] MUSCLE MUSCLE Diagnosis Active 2016-07-29 Me moria WEAKNESS WEAKNESS 15:57:00 l (GENERALIZ (GENERALIZ He [facility] ED) ED) Active [facility] CHOLECYSTI CHOLECYST Diagnosis Active 2017-11-11 Memoria TIS, ITIS, 12:12:00 l UNSPECIFIE UNSPECIFIE He trista D D Active [facility] History of Past Illness Condition Condition Condition Status Onset Resolution Last Treating Co mments Source Name Details Category Date Date Treatment Clinician Date Discharge Discharge Problem 2016-06-02 2016-06-02 Memoria Diagnosis: Diagnosis: 05-30 03:26:48 03:26:48 l Fatigue Fatigue 05:00: [place] 05/30/2016 00 06/02/2016 [facility] Discharge Discharge Problem 2016-06-02 2016-06-02 Memoria Diagnosis: Diagnosis: 05-30 03:26:48 03:26:48 l Acute Acute 05:00: [place] renal renal 00 insufficie insufficie ncy ncy 05/30/2016 6 [facility] Discharge Discharge Problem 2016-06-02 2016-06-02 Memoria Diagnosis: Diagnosis: 05-30 03:26:48 03:26:48 l Dehydratio Dehydratio 05:00: Kain weston n n 00 05/30/2016 6 [facility] Allergies, Adverse Reactions, Alerts Allergy Allergy Status Severity Reaction(s) Onset Inactive Treating Comm ents Source Name Type Date Date Clinician CODEINE DRUG Active Unknown-Cmnt Uni vers INGREDI 05-14 ity of 00:00: [place] 00 Medical Branch Codeine Propensi Active Unknown - Univ ers ty to See comments 05-14 ity of adverse 00:00: [place] reaction 00 Medical s Branch codeine codeine Active Memoria l [place] caffeine caffeine Active Memori a l [place] codeine Adverse Active Info Not Common Reaction Available [facility] t - [facility] Social History Social Habit Start Date Stop Date Quantity Comments Source History SDOH University o f Alcohol Frequency [place] M edical Branch History [facility] University o f Alcohol Std [place] Medical Drinks Branch History [facility] University o f Alcohol Binge [place] Medic al Branch History of Chews Tobacco University of tobacco use [place] [facility] Exposure to 2021-12-31 2022-01-10 Not sure [facility] SARS-CoV-2 00:00:00 08:40:00 [facility] (event) Branch Social History 2016-05-30 2016-05-30 Mary colbert 15:36:53 15:36:53 Alcohol intake 2012-12-31 2012-12-31 Current University of 00:00:00 00:00:00 non-drinker of [facility] alcohol Branch (finding) Alcohol Comment 2011-06-28 2011-06-28 quit alcohol Univers ity of 00:00:00 00:00:00 [facility] Tobacco use and 2011-06-28 2011-06-28 Current user Univers ity of exposure 00:00:00 00:00:00 [facility] Sex [birth year] Universit y of 00:00:00 00:00:00 [facility] Smoking Status Start Date Stop Date Source Former smoker 2011-06-28 00:00:00 2011-06-28 00:00:00 Universi ty [facility] Medications Ordered Filled Start Stop Current Ordering Indication Dosage Frequency Signature Comments Components Source Medication Medication Date Date Medication? Clinician (SIG) Name Name Carvedilol Carvedilol Yes Jenna 1 tablet Common 9-26 Millender [facility] 00:00: - [facility] Glucometer Glucometer Yes Jenna one strip Common test strips test strips 9-16 Millender using the Spirit 00:00[facility] Al[facility] Albuterol 2017-09 Yes Jenna 3 ml as Common Sulfate Sulfate 2-18 Millender needed Sp leila 00:00: - [facility] fluconazole 2016-09 Yes 200 mg = 2 Memoria 100 mg oral 0-10 tab, PO, l tablet 21:09: [id number], 0 Padmini nn 00 Refill(s) fluconazole 2016-09 Yes 200 mg = 2 Memoria 100 mg oral 0-10 tab, PO, l tablet 21:09: [id number], 0 Padmini nn 00 Refill(s) fluconazole 2016-09 Yes 200 mg = 2 Memoria 100 mg oral 0-10 tab, PO, l tablet 21:09: [id number], 0 Padmini nn 00 Refill(s) Saline 2016-09 No 10 mL, Memoria Flush 0.9% 0-10 Route: l 21:00: IVP, Drug [place] 00 Form: INJ, Dosing Weight 118.682, kg, Q8H, Start date: 06/10/17 16:00:00 CDT, Duration: 30 day, Stop date: 07/10/17 8:00:00 [facility] Lidocaine 2016-09 No Notes: Memori a Hydrochlori 0-10 Preservati l de 10 MG/ML 21:00: ve free. He rmann Injectable 00 (Same as: Solution Xylocaine MPF) Saline 2016-09 No 10 mL, Memoria Flush 0.9% 0-10 Route: l 21:00: IVP, Drug Kress 00 Form: INJ, Dosing Weight 118.682, kg, Q8H, Start date: 06/10/17 16:00:00 CDT, Duration: 30 day, Stop date: 07/10/17 8:00:00 [facility] Lidocaine 2016-09 No Notes: Memori a Hydrochlori 0-10 Preservati l de 10 MG/ML 21:00: ve free. He rmann Injectable 00 (Same as: Solution Xylocaine MPF) Saline 2016-09 No 10 mL, Memoria Flush 0.9% 0-10 Route: l 21:00: IVP, Drug Kress 00 Form: INJ, Dosing Weight 118.682, kg, Q8H, Start date: 06/10/17 16:00:00 CDT, Duration: 30 day, Stop date: 07/10/17 8:00:00 [facility] Lidocaine 2016-09 No Notes: Memori a Hydrochlori 0-10 Preservati l de 10 MG/ML 21:00: ve free. He rmann Injectable 00 (Same as: Solution Xylocaine MPF) Saline 2016-09 No Notes: Memoria Flush 0.9% 0-10 (Same as: l 20:41: BD [place] 00 Posiflush) Saline 2016-09 No Notes: Memoria Flush 0.9% 0-10 (Same as: l 20:41: BD [place] 00 Posiflush) Saline 2016-09 No Notes: Memoria Flush 0.9% 0-10 (Same as: l 20:41: BD [place] 00 Posiflush) Lidocaine 2016-09 No 5 mL, Memoria Hydrochlori 0-10 Route: l de 10 MG/ML 19:00: INTRADERM, [place] Injectable 00 Dosing Solution Weight 118.682, kg, ONCALL, Start date: 06/10/17 14:00:00 CDT, Duration: 30 day, Stop date: 07/10/17 12:59:00 [facility] BD Normal 2016-09 No Notes: Memori a Saline 0-10 (Same as: l Flush 19:00: BD [place] 00 Posiflush) Lidocaine 2016-09 No 5 mL, Memoria Hydrochlori 0-10 Route: l de 10 MG/ML 19:00: INTRADERM, G[place]mez Injectable 00 Dosing Solution Weight 118.682, kg, ONCALL, Start date: 06/10/17 14:00:00 CDT, Duration: 30 day, Stop date: 07/10/17 12:59:00 [facility]IC BD Normal 2016-09 No Notes: Memori a Saline 0-10 (Same as: l Flush 19:00: BD [place] 00 Posiflush) Lidocaine 2016-09 No 5 mL, Memoria Hydrochlori 0-10 Route: l de 10 MG/ML 19:00: INTRADERM, Gómez Injectable 00 Dosing Solution Weight 118.682, kg, ONCALL, Start date: 06/10/17 14:00:00 CDT, Duration: 30 day, Stop date: 07/10/17 12:59:00 [facility]INIC BD Normal 2016-09 No Notes: Memori a Saline 0-10 (Same as: l Flush 19:00: BD [place] 00 Posiflush) Saline 2016-09 No Notes: Memoria Flush 0.9% 0-10 (Same as: l 18:26: BD [place] 00 Posiflush) Saline 2016-09 No Notes: Memoria [...] 0.9% 0-10 (Same as: l 17:59: BD [place] 00 Posiflush) Saline 2016-09 No Notes: Memoria Flush 0.9% 0-10 (Same as: l 17:59: BD G[place]mez 00 Posiflush) Saline 2016-09 No Notes: Memoria Flush 0.9% 0-10 (Same as: l 17:59: BD [place] 00 Posiflush) Protonix 2016-09 No Notes: Memoria 0-09 Tablet l 21:30: should not [place] 00 be chewed or crushed. (Same as: Protonix) Protonix 2016-09 No Notes: Memoria 0-09 Tablet l 21:30: should not [place] 00 be chewed or crushed. (Same as: Protonix) Protonix 2016-09 No Notes: Memoria 0-09 Tablet l 21:30: should not [place] 00 be chewed or crushed. (Same as: Protonix) Miralax 2016-09 No Notes: Memoria 0-09 Dissolve l 17:11: in 8 oz of [place] 00 water or juice. (Same as: Miralax) Miralax 2016-09 No Notes: Memoria 0-09 Dissolve l 17:11: in 8 oz of Gómez 00 water or juice. (Same as: Miralax) Miralax 2016-09 No Notes: Memoria 0-09 Dissolve l 17:11: in 8 oz of [place] 00 water or juice. (Same as: Miralax) [...] Memoria 0-03 (Same as: l 16:00: Zosyn) [place] 00 Dosing based on Piperacill in component MEDICATION WASTE Product Size: 3375 mg Product Wasted: ___ mg Zosyn 2016-09 No Notes: Memoria 0-03 (Same as: l 16:00: Zosyn) [place] 00 Dosing based on Piperacill in component MEDICATION WASTE Product Size: 3375 mg Product Wasted: ___ mg Zosyn 2016-09 No Notes: Memoria 0-03 (Same as: l 16:00: Zosyn) [place]ress 00 Dosing based on Piperacill in component MEDICATION WASTE Product Size: 3375 mg Product Wasted: ___ mg Hydralazine 2016-09 No Notes: David cedrick 0-03 (Same as: l 07:17: Apresoline Gómez ) Push over 5 minutes Hydralazine 2016-09 No Notes: David cedrick 0-03 (Same as: l 07:17: Apresoline Kress ) Push over 5 minutes Hydralazine 2016-09 No Notes: David cedrick 0-03 (Same as: l 07:17: Apresoline Kress ) Push over 5 minutes Diflucan 2016-09 No Notes: Memoria 0-01 (Same as: l 20:00: Diflucan) Kress Diflucan 2016-09 No Notes: Memoria 0-01 (Same as: l 20:00: Diflucan) Kress Diflucan 2016-09 No Notes: Memoria 0-01 (Same as: l 20:00: Diflucan) Kress Lasix 2016-09 No Notes: Memoria 0-01 (Same as: l 15:04: Lasix) Kress Lasix 2016-09 No Notes: Memoria 0-01 (Same as: l 15:04: Lasix) [place] Lasix 2016-09 No Notes: Memoria 0-01 (Same as: l 15:04: Lasix) [place] Diflucan No Notes: Memoria 9-30 (Same as: l 22:00: Diflucan) G[place]mez Do not refrigerat e Diflucan No Notes: Memoria 9-30 (Same as: l 22:00: Diflucan) Kress Do not refrigerat e Diflucan No Notes: Memoria 9-30 (Same as: l 22:00: Diflucan) Kress Do not refrigerat e Flagyl No Notes: Memoria 9-30 (Same as: l 21:00: Flagyl) [place] Avoid alcohol. Flagyl No Notes: Memoria 9-30 (Same as: l 21:00: Flagyl) Kress Avoid alcohol. Flagyl No Notes: Memoria 9-30 (Same as: l 21:00: Flagyl) [place] Avoid alcohol. Lovenox 2017-0 No 30 mg, Memoria 9-29 Route: l 18:00: SUB-Q, Drug form: INJ, [id number], Dosing Weight 118.682, kg, For CrCl <30mL/min, Start date: 05/30/17 13:00:00 CDT, Duration: 30 day, Stop date: 06/28/17 13:00:00 CDT Lovenox 2016-0 No 30 mg, Memoria 05-30 Route: l 18:00: SUB-Q, Drug form: INJ, [id number], Dosing Weight 118.682, kg, For CrCl <30mL/min, Start date: 05/30/17 13:00:00 CDT, Duration: 30 day, Stop date: 06/28/17 13:00:00 CDT Lovenox 2016-0 No 30 mg, Memoria 05-30 Route: l 18:00: SUB-Q, Drug form: INJ, [id number], Dosing Weight 118.682, kg, For CrCl <30mL/min, [...] as: Tylenol) Dulcolax No Notes: Memoria Laxative 9-25 (Same As: l 20:24: Dulcolax, Kress 00 Bisco-Lax) Dulcolax No Notes: Memoria Laxative 9-25 (Same As: l 20:24: Dulcolax, Kress 00 Bisco-Lax) Dulcolax No Notes: Memoria Laxative 9-25 (Same As: l 20:24: Dulcolax, [place]me[place] 00 Bisco-Lax) timolol No Notes: Memoria ophthalmic 9-25 (Same As: l 19:00: Timoptic, G[place] 00 Betimol) timolol No Notes: Memoria ophthalmic 9-25 (Same As: l 19:00: Timoptic, [place] 00 Betimol) timolol No Notes: Memoria ophthalmic 9-25 (Same As: l 19:00: Timoptic, [place] 00 Betimol) magnesium No Notes: Memori a citrate 9-24 (Same as: l 58.2 MG/ML 18:32: Citrate of H ermann Oral 00 Magnesia) Solution Concentrat ion: 1.745 gm / 30 mL magnesium No Notes: Memori a citrate 9-24 (Same as: l 58.2 MG/ML 18:32: Citrate of H ermann Oral 00 Magnesia) Solution Concentrat ion: 1.745 gm / 30 mL magnesium No Notes: Memori a citrate 9-24 (Same as: l 58.2 MG/ML 18:32: Citrate of H ermann Oral 00 Magnesia) Solution Concentrat ion: 1.745 gm / 30 mL Albuterol No Notes: Memori a 0.833 MG/ML 9-24 (Same as: l / 16:00: Duoneb) G[place] Ipratropium 00 Keller 0.167 MG/ML Inhalant Solution Albuterol No Notes: Memori a 0.833 MG/ML 9-24 (Same as: l / 16:00: Duoneb) Kress Ipratropium 00 Keller 0.167 MG/ML Inhalant Solution Albuterol No Notes: Memori a 0.833 MG/ML 9-24 (Same as: l / 16:00: Duoneb) [place] Ipratropium 00 Keller 0.167 MG/ML Inhalant Solution Budesonide No Notes: Memor ia 0.25 MG/ML 24 (Same As: l Inhalant 12:57: Pulmicort) Her andujar Solution 00 [Pulmicort] Budesonide No Notes: Memor ia 0.25 MG/ML -24 (Same As: l Inhalant 12:57: Pulmicort) Her andujar Solution 00 [Pulmicort] Budesonide No Notes: Memor ia 0.25 MG/ML 9-24 (Same As: l Inhalant 12:57: Pulmicort) Her andujar Solution 00 [Pulmicort] Budesonide No Notes: Memor ia 0.25 MG/ML 9-24 (Same As: l Inhalant 01:00: Pulmicort) Her andujar Solution 00 [Pulmicort] Budesonide No Notes: Memor ia 0.25 MG/ML -24 (Same As: l Inhalant 01:00: Pulmicort) Her andujar Solution 00 [Pulmicort] Budesonide No Notes: Memor ia 0.25 MG/ML 05-25 (Same As: l Inhalant 01:00: Pulmicort) Her andujar Solution 00 [Pulmicort] Dextrose No 50 mL, Memoria 50% in 05-25 Route: l Water IV 00:24: IVP, Start Her andujar date: 05/24/17 19:24:00 CDT, Stop date: 05/24/17 19:24:00 CDT Dextrose No 50 mL, Memoria 50% in 05-25 Route: l Water IV 00:24: IVP, Start Her andujar date: 05/24/17 19:24:00 CDT, Stop date: 05/24/17 19:24:00 CDT Dextrose 2016-0 No 50 mL, Memoria 50% in 05-25 Route: l Water IV 00:24: IVP, Start Her andujar date: 05/24/17 19:24:00 CDT, Stop date: 05/24/17 19:24:00 CDT Dextrose No 25 gm, Memoria 05-24 Route: l 23:34: IVPB, [place]ress 00 ONCE, Dosing Weight 118.682, kg, Start date: 05/24/17 18:34:00 CDT, Stop date: 05/24/17 18:34:00 CDT Dextrose 2017-0 No 25 gm, Memoria 05-24 Route: l 23:34: IVPB, [place] 00 ONCE, Dosing Weight 118.682, kg, Start date: 05/24/17 18:34:00 CDT, Stop date: 05/24/17 18:34:00 CDT Dextrose 2017-0 No 25 gm, Memoria 05-24 Route: l 23:34: IVPB, G[place]mez 00 ONCE, Dosing Weight 118.682, kg, Start [...] 2017-0 No 1,000 mL, Memori a chloride 9-23 Rate: 75 l 0.9% 1000 17:41: ml/hr, Rudy n ml INJ 00 Infuse 1,000 mL over: 13.3 hr, Route: IV, Dosing Weight 118.682 kg, Total Volume: 1,000, Start date: 05/24/17 12:41:00 CDT, Stop date: 06/23/17 12:40:00 CDT sodium No 1,000 mL, Memori a chloride 9-23 Rate: 75 l 0.9% 1000 17:41: ml/hr, Rudy n ml INJ 00 Infuse 1,000 mL over: 13.3 hr, Route: IV, Dosing Weight 118.682 kg, Total Volume: 1,000, Start date: 05/24/17 12:41:00 CDT, Stop date: 06/23/17 12:40:00 CDT influenza No Notes: Memori a virus - (Same as: l vaccine, 14:00: Fluzone Rudy n inactivated 00 Quadrivale nt, Fluarix Quadrivale nt) For 3 years of age and older (0.5 mL IM) Shake well before use No Notes: Memoria - (Same as: l 14:00: Sepuv) omega-3 No Notes: Memoria polyunsatur 05-24 (Same as: l ated fatty 14:00: MaxEPA, Herm deepa acids 00 [place] 3 fish oil ) Non-Formul genaro Drug Vitamin D3 No Notes: Memor ia 05-24 Same as : l 14:00: Vitamin D3 00 venlafaxine No Notes: David cedrick 05-24 (Same As: l 14:00: Effexor) influenza No Notes: Memori a virus -23 (Same as: l vaccine, 14:00: Fluzone Rudy n inactivated 00 Quadrivale nt, Fluarix Quadrivale nt) For 3 years of age and older (0.5 mL IM) Shake well before use No Notes: Memoria 9-23 (Same as: l 14:00: Januvia) Kress 00 omega-3 No Notes: Memoria polyunsatur 05-24 (Same as: l ated fatty 14:00: MaxEPA, Herm deepa acids 00 [place] 3 fish oil ) Non-Formul genaro Drug Vitamin D3 No Notes: Memor ia 05-24 Same as : l 14:00: Vitamin D3 venlafaxine No Notes: David cedrick 05-24 (Same As: l 14:00: Effexor) influenza No Notes: Memori a virus 05-24 (Same as: l vaccine, 14:00: Fluzone Rudy n inactivated 00 Quadrivale nt, Fluarix Quadrivale nt) For 3 years of age and older (0.5 mL IM) Shake well before use ia No Notes: Memoria 05-24 (Same as: l 14:00: Januvia) omega-3 No Notes: Memoria polyunsatur 05-24 (Same as: l ated fatty 14:00: MaxEPA, Herm deepa acids 00 [place] 3 fish oil ) Non-Formul genaro Drug Vitamin D3 No Notes: Memor ia 05-24 Same as : l 14:00: Vitamin D3 venlafaxine No Notes: David cedrick 05-24 (Same As: l 14:00: Effexor) Albuterol No Notes: Memori a 0.833 MG/ML 05-24 (Same as: l / 13:46: Duoneb) Kress Ipratropium 00 [place] 0.167 MG/ML Inhalant Solution [DuoNeb] Albuterol No Notes: Memori a 0.833 MG/ML - (Same as: l / 13:46: Duoneb) Kress Ipratropium 00 [place] 0.167 MG/ML Inhalant Solution [DuoNeb] Albuterol No Notes: Memori a 0.833 MG/ML 05-24 (Same as: l / 13:46: Duoneb) Kress Ipratropium 00 Keller 0.167 MG/ML Inhalant Solution [DuoNeb] tiotropium No [...] a 05-24 Take 1 l 11:30: hour Kress 00 before or 2 hours after meal; Enteral feeds may interefere with the absorption of this medication .(Same as:Levothr oid, Synthroid) Thyroxine No Notes: Memori a - Take 1 l 11:30: hour Kress 00 before or 2 hours after meal; Enteral feeds may interefere with the absorption of this medication .(Same as:Levothr oid, Synthroid) Thyroxine No Notes: Memori a 05-24 Take 1 l 11:30: hour Kress 00 before or 2 hours after meal; Enteral feeds may interefere with the absorption of this medication .(Same as:Levothr oid, Synthroid) Trazodone No Notes: Memori a 05-24 (Same As: l 02:00: Desyrel) [place] 00 Risperidone No Notes: David cedrick 05-24 (Same as: l 02:00: Risperdal) Kress 00 latanoprost No Notes: David cedrick 0.05 [...] Tricor) 24 HR No Notes: Memoria Divalproex 9-23 (Same as: l Sodium 500 02:00: Depakote Her andujar MG Extended 00 ER) Once Release daily Tablet dosing; indicated for migraines. Divalproex sodium extended-r elease tab. Do not chew or crush. "Do Not Crush" Trazodone No Notes: Memori a - (Same As: l 02:00: Desyrel) Risperidone No [...] use only" Fenofibrate No Notes: David cedrick - (Same as: l 02:00: Tricor) 24 HR No Notes: Memoria Divalproex -23 (Same as: l Sodium 500 02:00: Depakote Her andujar MG Extended 00 ER) Once Release daily Tablet dosing; indicated for migraines. Divalproex sodium extended-r elease tab. Do not chew or crush. "Do Not Crush" 24 HR No Notes: Memoria Divalproex 9-23 (Same as: l Sodium 500 02:00: Depakote Her andujar MG Extended 00 ER) Once Release daily Tablet dosing; indicated for migraines. Divalproex sodium extended-r elease tab. Do not chew or crush. "Do Not Crush" Trazodone No Notes: Memori a - (Same As: l 02:00: Desyrel) Risperidone No [...] cedrick 05-24 (Same as: l 02:00: Tricor) [place] 00 Ipratropium No Notes: SEE Memoria 05-24 RT l 00:00: DOCUMENTAT [place] 00 ION (Same as:Atroven t) Ipratropium No Notes: SEE Memoria 05-24 RT l 00:00: DOCUMENTAT [place]ress 00 ION (Same as:Atroven t) Ipratropium No Notes: SEE Memoria 05-24 RT l 00:00: DOCUMENTAT [place] 00 ION (Same as:Atroven t) Brimonidine No Notes: David cedrick tartrate 05-23 [...] 05-23 (Same as: l chloride 22:00: Zosyn) Kress 0.9% INJ 00 Dosing 100 mL based on Piperacill in component MEDICATION WASTE Product Size: 3375 mg Product Wasted: ___ mg Zosyn + No Notes: Memoria sodium 05-23 (Same as: l chloride 22:00: Zosyn) Kress 0.9% INJ 00 Dosing 100 mL based [...] 05-23 Route: IV, l 21:00: Q8H, [place] 00 Dosing Weight 109.545, kg, Start date: 05/23/17 16:00:00 CDT, Duration: 30 day, Stop date: 06/22/17 8:00:00 CDT, ABX Indication : Intra-abdo jelly Infection Symbicort No Notes: Memori a 160/4.5 05-23 (Same as: l inhalation 21:00: Symbicort) H ermann aerosol 00 WASTE: with Aerosol - adapter Return to Pharmacy [facility] No 2.25 gm, Memoria 05-23 Route: IV, l 21:00: Q8H, [place] 00 Dosing Weight 109.545, kg, Start date: 05/23/17 16:00:00 CDT, Duration: 30 day, Stop date: 06/22/17 8:00:00 CDT, ABX Indication : Intra-abdo jelly Infection Symbicort No Notes: Memori a 160/4.5 05-23 (Same as: l inhalation 21:00: Symbicort) H ermann aerosol 00 WASTE: with Aerosol - adapter Return to Pharmacy [facility] No 2.25 gm, Memoria 05-23 Route: IV, [...] jelly Infection Buspirone No Notes: Memori a 9-22 (Same As: l 18:00: BuSpar) Aspirin No Notes: Do Memor ia 9-22 not crush l 18:00: or chew. (Same As: Ecotrin) Amlodipine No Notes: Memor ia - (Same as: l 18:00: Norvasc) Amiodarone No Notes: Memor ia 9- (Same as: l 18:00: Cordarone) Zosyn No 2.25 gm, Memoria 9-22 Route: l 18:00: IVPB, Drug form: PDR/INJ, ABXQ8H, Dosing Weight 118.682, kg, Start date: 05/23/17 13:00:00 CDT, Duration: 10 day, Stop date: 06/02/17 5:00:00 CDT, ABX Indication : Intra-abdo jelly Infection Buspirone No Notes: Memori a - (Same As: l 18:00: BuSpar) Aspirin No Notes: Do Memor ia 05-23 not crush l 18:00: or chew. (Same As: Ecotrin) Amlodipine No Notes: Memor ia 05-23 (Same as: l 18:00: Norvasc) Amiodarone No Notes: Memor ia - (Same as: l 18:00: Cordarone) Zosyn No 2.25 gm, Memoria 9 Route: l 18:00: IVPB, Drug form: PDR/INJ, ABXQ8H, Dosing Weight 118.682, kg, Start date: 05/23/17 13:00:00 CDT, Duration: 10 day, Stop date: 06/02/17 5:00:00 CDT, ABX Indication : Intra-abdo jelly Infection Buspirone No Notes: Memori a 9-22 (Same As: l 18:00: BuSpar) Aspirin No Notes: Do Memor ia 9-22 not crush l 18:00: or chew. Góme[place] (Same As: Ecotrin) Amlodipine No Notes: Memor ia 05-23 (Same as: l 18:00: Norvasc) Amiodarone No Notes: Memor ia 05-23 (Same as: l 18:00: Cordarone) Alprazolam No Notes: Memor ia 05-23 With food l 17:42: or milk Kress 00 (Same as: Xanax) Alprazolam No Notes: Memor ia 05-23 With food l 17:42: or milk Kress 00 (Same as: Xanax) Alprazolam No Notes: Memor ia 05-23 With food l 17:42: or milk Kress 00 (Same as: Xanax) Insulin No 60 units) David cedrick Lispro 05-23 WASTE: F/P l 17:40: - Black; E - Municipal Trash Bin Stable for 28 days at room temperatur e. Expires in days from ____Date Dextrose No 12.5 gm, Memor ia 50% Syringe 05-23 25 mL, l 17:40: Route: [place] 00 IVP, Drug Form: INJ, Dosing Weight 118.682, [...] e. Expires in days from ____Date Dextrose 2017-0 No 12.5 gm, Memor ia 50% Syringe 05-23 25 mL, l 17:40: Route: Kress 00 IVP, Drug Form: INJ, Dosing Weight 118.682, kg, PRN, PRN Blood Glucose Results, Start date: 05/23/17 12:40:00 CDT, Duration: 30 day, Stop date: 06/22/17 12:39:00 CDT Glucagon 2016-0 No 1 mg, Memoria 05-23 Route: IM, l 17:40: Drug form: Gó[place] 00 PDR/INJ, PRN, Dosing Weight 118.682, kg, PRN Blood Glucose Results, Start date: 05/23/17 12:40:00 CDT, Duration: 30 day, Stop date: 06/22/17 12:39:00 CDT Insulin 2016-0 No 60 units) David cedrick Lispro 05-23 WASTE: F/P l 17:40: - Black; E - [facility] Trash Bin Stable for 28 days at room temperatur e. Expires in days from ____Date Dextrose 2016-0 No 12.5 gm, Memor ia 50% Syringe 05-23 25 mL, l 17:40: Route: Góme[place] IVP, Drug Form: INJ, Dosing Weight 118.682, kg, PRN, PRN Blood Glucose Results, Start date: 05/23/17 12:40:00 CDT, Duration: 30 day, Stop date: 06/22/17 12:39:00 CDT Glucagon 2016-0 No 1 mg, Memoria 05-23 Route: IM, l 17:40: Drug form: Kress 00 PDR/INJ, PRN, Dosing Weight 118.682, kg, PRN Blood Glucose Results, Start date: 05/23/17 12:40:00 CDT, Duration: 30 day, Stop date: 06/22/17 12:39:00 CDT Baclofen 2016-0 No Notes: Memoria 05-23 (Same As: l 17:15: Lioresal) Baclofen 2016-0 No Notes: Memoria 05-23 (Same As: l 17:15: Lioresal) Baclofen No Notes: Memoria 9-22 (Same As: l 17:15: Lioresal) Aspirin 81 No 81 mg = 1 Me moria MG Chewable 9-22 tab, PO, l Tablet 16:29: Daily, Kress 00 tab, 0 Refill(s) 24 HR Yes 500 mg = 1 Memori a Divalproex 9-22 tab, PO, l Sodium 500 16:29: Bedtime, # H ermann MG Extended 00 30 tab, 0 Release Refill(s) Tablet Aspirin 81 No 81 mg = 1 Me moria MG Chewable 9-22 tab, PO, l Tablet 16:29: Daily, Kress 00 tab, 0 Refill(s) 24 HR Yes 500 mg = 1 Memori a Divalproex 9-22 tab, PO, l Sodium 500 16:29: Bedtime, # H ermann MG Extended 00 30 tab, 0 Release Refill(s) Tablet Aspirin 81 No 81 mg = 1 Me moria MG Chewable 9-22 tab, PO, l Tablet 16:29: Daily, Kress 00 tab, 0 Refill(s) 24 HR Yes 500 mg = 1 Memori a Divalproex 9-22 tab, PO, l Sodium 500 16:29: Bedtime, # H ermann MG Extended 00 30 tab, 0 Release Refill(s) Tablet Zosyn + No Notes: Memoria sodium 9-22 (Same as: l chloride 16:00: Zosyn) Kress 0.9% INJ 00 Dosing 100 mL based on Piperacill in component MEDICATION WASTE Product Size: 3375 mg Product Wasted: ___ mg Zosyn + No Notes: Memoria sodium 9-22 (Same as: l chloride 16:00: Zosyn) Kress 0.9% INJ 00 Dosing 100 mL based on Piperacill in component MEDICATION WASTE Product Size: 3375 mg Product Wasted: ___ mg Zosyn + No Notes: Memoria sodium 9-22 (Same as: l chloride 16:00: Zosyn) [place] 0.9% INJ 00 Dosing 100 mL based on Piperacill in component MEDICATION WASTE Product Size: 3375 mg Product Wasted: ___ mg Zosyn + 2017-0 No Notes: Memoria sodium 9-22 (Same as: l chloride 15:21: Zosyn) [place] 0.9% INJ 00 Dosing 100 mL based on Piperacill in component MEDICATION WASTE Product Size: 3375 mg Product Wasted: ___ mg Zosyn + 2017-0 No Notes: Memoria sodium 9-22 (Same as: l chloride 15:21: Zosyn) [place] 0.9% INJ 00 Dosing 100 mL based on Piperacill in component MEDICATION WASTE Product Size: 3375 mg Product Wasted: ___ mg Zosyn + 2016-0 No Notes: Memoria sodium -22 (Same as: l chloride 15:21: Zosyn) Kress 0.9% INJ 00 Dosing 100 mL based on Piperacill in component MEDICATION WASTE Product Size: 3375 mg Product Wasted: ___ mg Morphine 2017-0 No 2 mg, 1 Memori a 9-22 mL, Route: l 14:57: IVP, Drug Kress 00 form: SOLN, Q4H, Dosing Weight 109.545, kg, PRN Pain Score 7-10, Priority: STAT, Start date: 05/23/17 9:57:00 CDT, Stop date: 06/22/17 9:56:00 CDT Zofran 2016-0 No Notes: Memoria 05-23 (Same as: l 14:57: Zofran) [place] 00 MEDICATION WASTE Product Size: 4 mg Product Wasted: ___ mg Morphine 2017-0 No 2 mg, 1 Memori a 9-22 mL, Route: l 14:57: IVP, Drug [place] 00 form: SOLN, Q4H, Dosing Weight 109.545, kg, PRN Pain Score 7-10, Priority: STAT, Start date: 05/23/17 9:57:00 CDT, Stop date: 06/22/17 9:56:00 CDT Zofran 2016-0 No Notes: Memoria - (Same as: l 14:57: Zofran) [place] 00 MEDICATION WASTE Product Size: 4 mg Product Wasted: ___ mg Morphine 2017-0 No 2 mg, 1 Memori a 9-22 mL, Route: l 14:57: IVP, Drug form: SOLN, Q4H, Dosing Weight 109.545, kg, PRN Pain Score 7-10, Priority: STAT, Start date: 05/23/17 9:57:00 CDT, Stop date: 06/22/17 9:56:00 CDT Zofran 2016-0 No Notes: Memoria 05-23 (Same as: l 14:57: Zofran) MEDICATION WASTE Product Size: 4 mg Product Wasted: ___ mg Morphine 2017-0 No 4 mg, Memoria 05-23 Route: l 14:27: IVP, ONCE, Dosing Weight 109.545, kg, Priority: STAT, Start date: 05/23/17 9:27:00 CDT, Stop date: 05/23/17 9:27:00 CDT Morphine 2017-0 No 4 mg, Memoria 05-23 Route: l 14:27: IVP, ONCE, Dosing Weight 109.545, kg, Priority: STAT, Start date: 05/23/17 9:27:00 CDT, Stop date: 05/23/17 9:27:00 CDT Morphine 2017-0 No 4 mg, Memoria 05-23 Route: l 14:27: IVP, ONCE, Dosing Weight 109.545, kg, Priority: STAT, Start date: 05/23/17 9:27:00 CDT, Stop date: 05/23/17 9:27:00 CDT Omnipaque 2017-0 No 45 Memoria 300 9-22 mL/min, l injectable 11:50: STAT, Rudy n solution 00 Start date: 05/23/17 6:50:00 CDT, Duration: 1 doses or times Omnipaque 2017-0 No 45 Memoria 300 9-22 mL/min, l injectable 11:50: STAT, Rudy n solution 00 Start date: 05/23/17 6:50:00 CDT, Duration: 1 doses or times Omnipaque 2017-0 No 45 Memoria 300 9-22 mL/min, l injectable 11:50: STAT, Rudy n solution 00 Start date: 05/23/17 6:50:00 CDT, Duration: 1 doses or times Morphine No Notes: Memoria 9-22 (Same l 11:10: as:MORPhin Kress 00 e Sulfate) Morphine No Notes: Memoria 9-22 (Same l 11:10: as:MORPhin [place] 00 e Sulfate) Morphine No Notes: Memoria 9-22 (Same l 11:10: as:MORPhin Kress 00 e Sulfate) Saline No Notes: Memoria Flush 0.9% 9-22 (Same as: l 11:09: BD [place] 00 Posiflush) Saline No Notes: Memoria Flush 0.9% 9-22 (Same as: l 11:09: BD [place] 00 Posiflush) Saline No Notes: Memoria Flush 0.9% 9-22 (Same as: l 11:09: BD [place] 00 Posiflush) tiotropium 2015-09 No Notes: Memor ia 0.018 09-28 (Same As: l MG/ACTUAT 15:00: Spiriva). Her andujar Inhalant 00 Powder [Spiriva] One-A-Day 2015-09 No 1 tab, Memori a Men 50 Plus 09-28 Route: PO, l 15:00: Dosing Kress Weight 109.545, kg, Daily, Start date: 07/29/16 9:00:00 [facility], Duration: 30 day, Stop date: 08/27/16 9:00:00 [facility] Aspirin 2015-09 No 81 mg, Memoria 09-28 Route: PO, l 15:00: Daily, G[place] 00 Dosing Weight 109.545, kg, Start date: 07/29/16 9:00:00 MANAGER [facility], Duration: 30 day, Stop date: 08/27/16 9:00:00 MANAGER [facility] tiotropium 2015-09 No Notes: Memor ia 0.018 09-28 (Same As: l MG/ACTUAT 15:00: Spiriva). Her andujar Inhalant 00 Powder [Spiriva] One-A-Day 2015-09 No 1 tab, Memori a Men 50 Plus 28 Route: PO, l 15:00: Dosing G[place] 00 Weight 109.545, kg, Daily, Start date: 07/29/16 9:00:00 MANAGER [facility]IC, Duration: 30 day, Stop date: 08/27/16 9:00:00 MANAGER [facility] Aspirin 2015-09 No 81 mg, Memoria 09-28 Route: PO, l 15:00: Daily, Dosing Weight 109.545, kg, Start date: 07/29/16 9:00:00 MANAGER [facility]INIC, Duration: 30 day, Stop date: 08/27/16 9:00:00 MANAGER [facility]INIC tiotropium 2015-09 No Notes: Memor ia 0.018 09-28 (Same As: l MG/ACTUAT 15:00: Spiriva). Her andujar Inhalant 00 Powder [Spiriva] One-A-Day 2015-09 No 1 tab, Memori a Men 50 Plus 09-28 Route: PO, l 15:00: Dosing Weight 109.545, kg, Daily, Start date: 07/29/16 9:00:00 [facility]NA[facility], Duration: 30 day, Stop date: 08/27/16 9:00:00 MANAGER [facility] Aspirin 2015-09 No 81 mg, Memoria 09-28 Route: PO, l 15:00: Daily, Dosing Weight 109.545, kg, Start date: 07/29/16 9:00:00 MANAGER [facility]IC, Duration: 30 day, Stop date: 08/27/16 9:00:00 MANAGER [facility]INIC Levemir 2015-09 No Notes: Memoria FlexPen 09-28 [...] Weight 109.545, kg, Start date: 07/28/16 21:00:00 MANA[facility], Duration: 30 day, Stop date: 08/26/16 21:00:00 MANAGER [facility]INIC Levemir 2015-09 No Notes: Memoria FlexPen -28 Same as l 03:00: Levemir Do not hold insulin without contacting prescriber WASTE: F/P - Black; E - Municipal Trash Bin "single patient use only" Trazodone 2015-09 No Notes: Memori a -28 (Same As: l 03:00: Desyrel) Risperidone 2015-09 [...] Weight 109.545, kg, Start date: 07/28/16 21:00:00 [facility], Duration: 30 day, Stop date: 08/26/16 21:00:00 MANAGER [facility]INIC Levemir 2015-09 No Notes: Memoria FlexPen - Same as l 03:00: Levemir Do not hold insulin without contacting prescriber WASTE: F/P - Black; E - Municipal Trash Bin "single patient use only" Trazodone 2015-09 No Notes: Memori a -28 (Same As: l 03:00: Desyrel) Kress Risperidone 2015-09 No Notes: David cedrick -28 (Same as: l 03:00: Risperdal) Kress latanoprost 2015-09 No Notes: David cedrick 0.05 MG/ML 09-28 Keep l Ophthalmic 03:00: refrigerat H ermann Solution 00 ed. (Same as:Xalatan ) Insulin 2015-09 No 30 unit, Memori a Glargine 09-28 Route: l 100 UNT/ML 03:00: SUB-Q, Padmini nn Injectable 00 Drug form: Solution SOLN, [Lantus] Bedtime, Dosing Weight 109.545, kg, Start date: 07/28/16 21:00:00 [facility]NA[facility], Duration: 30 day, Stop date: 08/26/16 21:00:00 MANAGER [facility] Docusate 2015-09 No Notes: Memoria Sodium 100 -27 (Same as: l MG Oral 23:00: Colace) [place]me[place] Capsule 00 (Do Not Crush) Brimonidine 2015-09 No Notes: David cedrick tartrate -27 (Same As: l 1.5 MG/ML 23:00: Alphagan) Her andujar Ophthalmic 00 Solution Betaxolol 2015-09 No 2 drp, Memori a 2.5 MG/ML 09-27 Route: l Ophthalmic 23:00: BOTH EYES, H ermann Suspension 00 BID, Drug [Betoptic form: S] SUSP, Start date: 07/28/16 17:00:00 MANAGER [facility], Duration: 30 day, Stop date: 08/27/16 9:00:00 MANAGER [facility]INIC timolol 2015-09 No Notes: Memoria ophthalmic 1-27 (Same As: l 23:00: Timoptic, Kress 00 Betimol) Docusate 2015-09 No Notes: Memoria Sodium 100 -27 (Same as: l MG Oral 23:00: Colace) Kress Capsule 00 (Do Not Crush) Brimonidine 2015-09 No Notes: David cedrick tartrate -27 (Same As: l 1.5 MG/ML 23:00: Alphagan) Her anudjar Ophthalmic 00 Solution Betaxolol 2015-09 No 2 drp, Memori a 2.5 MG/ML 09-27 Route: l Ophthalmic 23:00: BOTH EYES, H ermann Suspension 00 BID, Drug [Betoptic form: S] SUSP, Start date: 07/28/16 17:00:00 MANAGER [facility]INIC, Duration: 30 day, Stop date: 08/27/16 9:00:00 MANAGER [facility]INIC timolol 2015-09 No Notes: Memoria ophthalmic 1-27 (Same As: l 23:00: Timoptic, [place] 00 Betimol) Docusate 2015-09 No Notes: Memoria Sodium 100 09-27 (Same as: l MG Oral 23:00: Colace) Kress Capsule (Do Not Crush) Brimonidine 2015-09 No Notes: David cedrick tartrate 09-27 (Same As: l 1.5 MG/ML 23:00: Alphagan) Her andujar Ophthalmic 00 Solution Betaxolol 2015-09 No 2 drp, Memori a 2.5 MG/ML 09-27 Route: l Ophthalmic 23:00: BOTH EYES, H ermann Suspension 00 BID, Drug [Betoptic form: S] SUSP, Start date: 07/28/16 17:00:00 MANAGER [facility]IC, Duration: 30 day, Stop date: 08/27/16 9:00:00 MANAGER CLINIC timolol 2015-09 No Notes: Memoria ophthalmic 09-27 (Same As: l 23:00: Timoptic, [place] Betimol) Buspirone 2015-09 No Notes: Memori a 09-27 (Same As: l 21:00: BuSpar) Buspirone 2015-09 No Notes: Memori a -27 (Same As: l 21:00: BuSpar) Kress 00 Buspirone 2015-09 No Notes: Memori a -27 (Same As: l 21:00: BuSpar) Ipratropium 2015-09 No 500 Memori a 1-27 microgram, l 19:00: Route: G[place] 00 NEB, QID, Dosing Weight 109.545, kg, Start date: 07/28/16 13:00:00 MANAGER [facility]INIC, Duration: 30 day, Stop date: 08/27/16 9:00:00 MANAGER CLINIC Alprazolam 2015-09 No 0.5 mg, David cedrick 09-27 Route: PO, l 19:00: TID, Kress Dosing Weight 109.545, kg, Start date: 07/28/16 13:00:00 MANAGER [facility]INIC, Duration: 30 day, Stop date: 08/27/16 9:00:00 MANAGER CLINIC Ipratropium 2015-09 No 500 Memori a 1-27 microgram, l 19:00: Route: Kress NEB, QID, Dosing Weight 109.545, kg, Start date: 07/28/16 13:00:00 MANAGER [facility]INIC, Duration: 30 day, Stop date: 08/27/16 9:00:00 MANAGER CLINIC Alprazolam 2015-09 No 0.5 mg, David cedrick -27 Route: PO, l 19:00: TID, [place] 00 Dosing Weight 109.545, kg, Start date: 07/28/16 13:00:00 MANAGER [facility]IC, Duration: 30 day, Stop date: 08/27/16 9:00:00 MANAGER CLINIC Ipratropium 2015-09 No 500 Memori a 1-27 microgram, l 19:00: Route: Kress 00 NEB, QID, Dosing Weight 109.545, kg, Start date: 07/28/16 13:00:00 MANAGER [facility]INIC, Duration: 30 day, Stop date: 08/27/16 9:00:00 MANAGER [facility]INIC Alprazolam 2015-09 No 0.5 mg, David cedrick 09-27 Route: PO, l 19:00: TID, Kress 00 Dosing Weight 109.545, kg, Start date: 07/28/16 13:00:00 MANAGER [facility]INIC, Duration: 30 day, Stop date: 08/27/16 9:00:00 MANAGER CLINIC Thyroxine 2015-09 No Notes: Memori a 1-27 Take 1 l 17:30: hour Kress 00 before or 2 hours after meal; Enteral feeds may interefere with the absorption of this medication .(Same as:Levothr oid, Synthroid) Thyroxine 2015-09 No Notes: Memori a 1-27 Take 1 l 17:30: hour Kress 00 before or 2 hours after meal; Enteral feeds may interefere with the absorption of this medication .(Same as:Levothr oid, Synthroid) Thyroxine 2015-09 No Notes: Memori a 1-27 Take 1 l 17:30: hour Kress 00 before or 2 hours after meal; Enteral feeds may interefere with the absorption of this medication .(Same as:Levothr oid, Synthroid) multivitami 2015-09 No Notes: David cedrick n with 09-27 Give with l minerals 17:00: food. Kress 00 (Same As: Stress 600 with Zinc) [...] ia 09-27 (Same as: l 17:00: Lasix) December cause GI upset. Give with food or [...] ia 09-27 (Same as: l 17:00: Prinivil, Kress 00 Zestril) metoprolol 2015-09 No Notes: Memor ia tartrate 09-27 (Same as: l 17:00: Lopressor) Furosemide 2015-09 No Notes: Memor ia 09-27 (Same as: l 17:00: Lasix) December cause GI upset. Give with food or [...] ia 09-27 (Same as: l 17:00: Prinivil, Kress 00 Zestril) metoprolol 2015-09 No Notes: Memor ia tartrate 09-27 (Same as: l 17:00: Lopressor) Furosemide 2015-09 No Notes: Memor ia 09-27 (Same as: l 17:00: Lasix) May cause GI upset. Give with food or milk. Fenofibrate 2015-09 No Notes: David cedrick 09-27 (Same as: l 17:00: Tricor) Vitamin D3 2015-09 No Notes: Memor ia 09-27 Same as : l 17:00: Vitamin D3 Kress 00 Vitamin C 2015-09 No Notes: Memori [...] Blood Glucose Results, Start date: 07/28/16 10:01:00 MANAGER CLINIC, Duration: 30 day, Stop date: 08/27/16 10:00:00 MANAGER CLINIC Glucagon 2015-09 No 1 mg, Memoria 09-27 Route: IM, l 16:01: Drug form: PDR/INJ, PRN, Dosing Weight 109.545, kg, PRN Blood Glucose Results, Start date: 07/28/16 10:01:00 MANAGER CLINIC, Duration: 30 day, Stop date: 08/27/16 10:00:00 MANAGER CLINIC Insulin, 2015-09 No Notes: Memoria Aspart, 1- Roll in l Human 16:01: palms of [place] 00 hands gently; Do not shake vigorously . (Same as: NovoLOG) "single patient use only" WASTE: F/P - Black; E - Municipal Trash Bin Stable for 28 days at room temperatur e. Expires in days from ____Date Dextrose 2015-09 No 12.5 gm, Memor ia 50% Syringe 1-27 25 mL, l 16:01: Route: [place] 00 IVP, Drug Form: INJ, Dosing Weight 109.545, kg, PRN, PRN Blood Glucose Results, Start date: 07/28/16 10:01:00 MANAGER CLINIC, Duration: 30 day, Stop date: 08/27/16 10:00:00 MANAGER CLINIC Glucagon 2015-09 No 1 mg, Memoria 09-27 Route: IM, l 16:01: Drug form: [place] 00 PDR/INJ, PRN, Dosing Weight 109.545, kg, PRN Blood Glucose Results, Start date: 07/28/16 10:01:00 MANAGER CLINIC, Duration: 30 day, Stop date: 08/27/16 10:00:00 MANAGER CLINIC Insulin, 2015-09 No Notes: Memoria Aspart, 1- Roll in l Human 16:01: palms of Kress 00 hands gently; Do not shake vigorously . (Same as: NovoLOG) "single patient use only" WASTE: F/P - Black; E - Municipal Trash Bin Stable for 28 days at room temperatur e. Expires in days from ____Date Dextrose 2015-09 No 12.5 gm, Memor ia 50% Syringe 1-27 25 mL, l 16:01: Route: [place] 00 IVP, Drug Form: INJ, Dosing Weight 109.545, kg, PRN, PRN Blood Glucose Results, Start date: 07/28/16 10:01:00 [facility], Duration: 30 day, Stop date: 08/27/16 10:00:00 [facility] Glucagon 2015-09 No 1 mg, Memoria 127 Route: IM, l 16:01: Drug form: Gómez 00 PDR/INJ, PRN, Dosing Weight 109.545, kg, PRN Blood Glucose Results, Start date: 07/28/16 10:01:00 [facility], Duration: 30 day, Stop date: 08/27/16 10:00:00 [facility] Enoxaparin 2015-09 No Notes: Memor ia - (Same as: l 16:00: Lovenox) Enoxaparin 2015-09 No Notes: Memor ia - (Same as: l 16:00: Lovenox) Enoxaparin 2015-09 No Notes: Memor ia - (Same as: l 16:00: Lovenox) Baclofen 2015-09 No Notes: Memoria - (Same As: l 15:58: Lioresal) Baclofen 2015-09 No Notes: Memoria - (Same As: l 15:58: Lioresal) Baclofen 2015-09 No Notes: Memoria - (Same As: l 15:58: Lioresal) Saline 2015-09 No Notes: Memoria Flush 0.9% -27 (Same as: l 15:00: BD Gó[place] 00 Posiflush) aspirin 81 2015-09 No Notes: Do Me moria mg tablet, 09-27 not crush l enteric 15:00: or chew. Rudy n coated 00 (Same As: Ecotrin) Famotidine 2015-09 No Notes: Memor ia 09-27 (Same as: l 15:00: Pepcid) Saline 2015-09 No Notes: [facility] Flush 0.9% -27 (Same as: l 15:00: BD [place] 00 Posiflush) aspirin 81 2015-09 No Notes: Do Me moria mg tablet, - not crush l enteric 15:00: or chew. Rudy n coated 00 (Same As: Ecotrin) Famotidine 2015-09 No Notes: Memor ia - (Same as: l 15:00: Pepcid) Saline 2015-09 No Notes: [facility] Flush 0.9% 1-27 (Same as: l 15:00: BD [place] 00 Posiflush) aspirin 81 2015-09 No Notes: Do Me moria mg tablet, - not crush l enteric 15:00: or chew. Rudy n coated 00 (Same As: Ecotrin) Famotidine 2015-09 No Notes: Memor ia 1-27 (Same as: l 15:00: Pepcid) [place] 00 Alprazolam 2015-09 No Notes: Memor ia 0.5 MG Oral 1-27 With food l Tablet 14:20: or milk Gómez [Xanax] 00 (Same as: Xanax) Alprazolam 2015-09 No Notes: Memor ia 0.5 MG Oral 1-27 With food l Tablet 14:20: or milk [place]ress [Xanax] 00 (Same as: Xanax) Alprazolam 2015-09 No Notes: Memor ia 0.5 MG Oral 1-27 With food l Tablet 14:20: or milk [place] [Xanax] 00 (Same as: Xanax) Saline 2015-09 No Notes: Memoria Flush 0.9% - (Same as: l 07:29: BD [place] 00 Posiflush) Ondansetron 2015-09 No Notes: David cedrick 09-27 (Same as: l 07:29: Zofran) [place]ress 00 MEDICATION WASTE Product Size: 4 mg Product Wasted: ___ mg Sodium 2015-09 No 1,000 mL, Memori a Chloride - Rate: 40 l 0.154 07:29: ml/hr, Kress MEQ/ML 00 Infuse Injectable over: 25 Solution hr, Route: IV, Dosing Weight 97.273 kg, Total Volume: 1,000, Start date: 07/28/16 1:29:00 [facility], Stop date: 08/27/16 1:28:00 MANAGER [facility] Saline 2015-09 No Notes: Memoria Flush 0.9% 1-27 (Same as: l 07:29: BD [place] 00 Posiflush) Ondansetron 2015-09 No Notes: David cedrick - (Same as: l 07:29: Zofran) [place] 00 MEDICATION WASTE Product Size: 4 mg Product Wasted: ___ mg Sodium 2015-09 No 1,000 mL, Memori a Chloride - Rate: 40 l 0.154 07:29: ml/hr, [place] MEQ/ML 00 Infuse Injectable over: 25 Solution hr, Route: IV, Dosing Weight 97.273 kg, Total Volume: 1,000, Start date: 07/28/16 1:29:00 MANAGER CLINIC, Stop date: 08/27/16 1:28:00 MANAGER CLINIC Saline 2015-09 No Notes: Memoria Flush 0.9% 09-27 (Same as: l 07:29: BD [place] 00 Posiflush) Ondansetron 2015-09 No Notes: David cedrick 09-27 (Same as: l 07:29: Zofran) [place] 00 MEDICATION WASTE Product Size: 4 mg Product Wasted: ___ mg Sodium 2015-09 No 1,000 mL, Memori a Chloride 09-27 Rate: 40 l 0.154 07:29: ml/hr, [place] MEQ/ML 00 Infuse Injectable over: 25 Solution hr, Route: IV, Dosing Weight 97.273 kg, Total Volume: 1,000, Start date: 07/28/16 1:29:00 MANAGER CLINIC, Stop date: 08/27/16 1:28:00 MANAGER CLINIC Aspirin 2015-09 No Notes: Memoria -27 Take with l 05:47: food. Kress Aspirin 2015-09 No Notes: Memoria 1-27 Take with l 05:47: food. K[place] Aspirin 2015-09 No Notes: Memoria 1-27 Take with l 05:47: food. [place]ress 00 Sodium No 1,000 mL, Memori a Chloride 05-30 1,000 l 0.154 15:49: ml/hr, [place] MEQ/ML 00 Infuse Injectable Over: 1 Solution hr, Route: IV, 1,000, Drug form: INJ, ONCE, Priority: STAT, Dosing Weight 97.727 kg, Start date: 05/30/16 10:49:00 CDT, Duration: 1 doses or times, Stop date: 05/30/16 10:49:00 CDT Sodium No 1,000 mL, Memori a Chloride 9 1,000 l 0.154 15:49: ml/hr, [place] MEQ/ML 00 Infuse Injectable Over: 1 Solution hr, Route: IV, 1,000, Drug form: INJ, ONCE, Priority: STAT, Dosing Weight 97.727 kg, Start date: 05/30/16 10:49:00 CDT, Duration: 1 doses or times, Stop date: 05/30/16 10:49:00 CDT Sodium No 1,000 mL, Memori a Chloride 05-30 1,000 l 0.154 15:49: ml/hr, [place] MEQ/ML 00 Infuse Injectable Over: 1 Solution [...] e 6-20 Tablet l 14:00: should not Kress 00 be chewed or crushed. (Same as: Protonix) Fenofibrate No 200 mg, Mem oria 6-20 Route: PO, l 14:00: Daily, Kress 00 Dosing Weight 120, kg, Start date: 02/18/15 9:00:00, Duration: 30 day, Stop date: 03/19/15 9:00:00 pantoprazol 2014-0 No Notes: David cedrick e 6-20 Tablet l 14:00: should not [place]ress 00 be chewed or crushed. (Same as: Protonix) Fenofibrate No 200 mg, Mem oria 6-20 Route: PO, l 14:00: Daily, [place] 00 Dosing Weight 120, kg, Start date: 02/18/15 9:00:00, Duration: 30 day, Stop date: 03/19/15 9:00:00 pantoprazol 2014-0 No Notes: David cedrick e 6-20 Tablet l 14:00: should not [place] 00 be chewed or crushed. (Same as: Protonix) Thyroxine No Notes: Memori a 6-20 Take 1 l 11:30: hour Kress 00 before or 2 hours after meal; [...] a 6-20 Take 1 l 11:30: hour Kress 00 before or 2 hours after meal; Enteral feeds may interefere with the absorption of this medication .(Same as:Levothr oid, Synthroid) Alprazolam No Notes: Memor ia 6-20 With food l 06:01: or milk Kress 00 (Same as: Xanax) Alprazolam No Notes: Memor ia 6-20 With food l 06:01: or milk [place] 00 (Same as: Xanax) Alprazolam No Notes: Memor ia 6-20 With food l 06:01: or milk [place] 00 (Same as: Xanax) TriCor No Notes: Memoria 6-20 (Same as: l 02:00: Tricor) [place] 00 Risperidone No Notes: David cedrick 6-20 (Same as: l 02:00: Risperdal) [place] 00 Lisinopril No Notes: Memor ia 6-20 (Same as: l 02:00: Prinivil, [place] 00 Zestril) latanoprost No Notes: David cedrick 0.05 MG/ML 6-20 Keep l Ophthalmic 02:00: refrigerat H ermann Solution 00 ed. (Same as:Xalatan ) Lantus No 30 unit, Memoria 6-20 Route: l 02:00: SUB-Q, Kress 00 Bedtime, Dosing Weight 120, kg, Start [...] Memoria 6-20 (Same as: l 02:00: Colace) Kress (Do Not Crush) TriCor No Notes: Memoria 6-20 (Same as: l 02:00: Tricor) [place] Risperidone No Notes: David cedrick 6-20 (Same as: l 02:00: Risperdal) Kress Lisinopril No Notes: Memor ia 6-20 (Same as: l 02:00: Prinivil, [place] 00 Zestril) latanoprost No Notes: David cedrick 0.05 MG/ML 6-20 Keep l Ophthalmic 02:00: refrigerat H ermann Solution 00 ed. (Same as:Diane ) Lantus No 30 unit, Memoria 6-20 Route: l 02:00: SUB-Q, [place] 00 Bedtime, Dosing Weight 120, kg, Start date: 02/17/15 21:00:00, Duration: 30 day, Stop date: 03/18/15 21:00:00 Levemir No Notes: Memoria FlexPen 6-20 Same as l 02:00: Levemir Do Kress 00 not hold insulin without contacting prescriber "single patient use only" Saline No Notes: Memoria Flush 0.9% 6-20 (Same as: l 02:00: BD [place] 00 Posiflush) Docusate No Notes: Memoria 6-20 (Same as: l 02:00: Colace) [place] (Do Not Crush) TriCor No Notes: Memoria [...] unit, Memoria 6-20 Route: l 02:00: SUB-Q, Kress Bedtime, Dosing Weight 120, kg, Start date: 02/17/15 21:00:00, Duration: 30 day, Stop date: 03/18/15 21:00:00 Levemir No Notes: Memoria FlexPen 6-20 Same as l 02:00: Levemir Do not hold insulin without contacting prescriber "single patient use only" Saline No Notes: Memoria Flush 0.9% 6-20 (Same as: l 02:00: BD [place] Posiflush) Docusate No Notes: Memoria 6-20 (Same as: l 02:00: Colace) [place] (Do Not Crush) normal No 1,000 mL, Memori a saline 0.9% 6-20 Rate: 200 l IV 1,000 mL 01:44: ml/hr, Herm deepa 00 Infuse over: 5 hr, Route: IV, Dosing Weight 120 kg, Total Volume: 1,000, Start date: 02/17/15 20:44:00, Duration: 30 day, Stop date: 03/19/15 20:43:00 normal No 1,000 mL, Memori a saline 0.9% 6-20 Rate: 200 l IV 1,000 mL 01:44: ml/hr, Herm deepa 00 Infuse over: 5 hr, Route: IV, Dosing Weight 120 kg, Total Volume: 1,000, Start date: 02/17/15 20:44:00, Duration: 30 day, Stop date: 03/19/15 20:43:00 normal No 1,000 mL, Memori a saline 0.9% 6-20 Rate: 200 l IV 1,000 mL 01:44: ml/hr, Herm deepa 00 Infuse over: 5 hr, Route: IV, Dosing Weight 120 kg, Total Volume: 1,000, Start date: 02/17/15 20:44:00, Duration: 30 day, Stop date: 03/19/15 20:43:00 Symbicort 2014-0 No Notes: Memori a 160/4.5 6-20 (Same as: l inhalation 01:00: Symbicort) H ermann aerosol 00 with adapter Symbicort 2014-0 No Notes: Memori a 160/4.5 6-20 (Same as: l inhalation 01:00: Symbicort) H ermann aerosol 00 with adapter Symbicort 2014-0 No Notes: Memori a 160/4.5 6-20 (Same as: l inhalation 01:00: Symbicort) H ermann aerosol 00 with adapter Sodium 2014- No 1,000 mL, Memori a Chloride 6-20 1,000 l 0.154 00:00: ml/hr, [place] MEQ/ML 00 Infuse Injectable Over: 1 Solution hr, Route: IV, ONCE, Priority: STAT, Dosing Weight 120 kg, Start date: 02/17/15 19:00:00, Duration: 1 doses or times, Stop date: 02/17/15 19:00:00 Albuterol 0 No Notes: Memori a 0.833 MG/ML 6-20 (Same as: l / 00:00: Duoneb) [place] Ipratropium 00 Keller 0.167 MG/ML Inhalant Solution Sodium No 1,000 mL, Memori a Chloride 6-20 1,000 l 0.154 00:00: ml/hr, [place] MEQ/ML 00 Infuse Injectable Over: 1 Solution hr, Route: IV, ONCE, Priority: STAT, Dosing Weight 120 kg, Start date: 02/17/15 19:00:00, Duration: 1 doses or times, Stop date: 02/17/15 19:00:00 Albuterol 0 No Notes: Memori a 0.833 MG/ML 6-20 (Same as: l / 00:00: Duoneb) [place] Ipratropium 00 Keller 0.167 MG/ML Inhalant Solution Sodium No 1,000 mL, Memori a Chloride 6-20 1,000 l 0.154 00:00: ml/hr, [place] MEQ/ML 00 Infuse Injectable Over: 1 Solution hr, Route: IV, ONCE, Priority: STAT, Dosing Weight 120 kg, Start date: 02/17/15 19:00:00, Duration: 1 doses or times, Stop date: 02/17/15 19:00:00 Albuterol No Notes: Memori a 0.833 MG/ML -20 (Same as: l / 00:00: Duoneb) Ipratropium 00 Keller 0.167 MG/ML Inhalant Solution Lactulose No Notes: Memori a 6-19 (Same l 23:00: as:Chronul Kress ac) Lactulose No Notes: Memori a 6-19 (Same l 23:00: as:Chronul [place] 00 ) Lactulose No Notes: Memori a 6-19 (Same l 23:00: as:Chronul [place] ) Enoxaparin No Notes: Memor ia 6-19 (Same [...] Memoria 6-19 (Same as: l 22:00: Januvia) [place]ress 00 docusate No Notes: Memoria sodium 100 6-19 (Same as: l mg oral 22:00: Colace) [place] capsule (Do Not Crush) dexmedetomi No Notes: David cedrick dine 200 6-19 (Same as: l microgram 21:38: Precedex) Her andujar 00 dexmedetomi No Notes: David cedrick dine 200 6-19 (Same as: l microgram 21:38: Precedex) Her andujar 00 dexmedetomi No Notes: David cedrick dine 200 [...] chloride 6-19 (Same as: l 21:37: Potassium Chloride) Calcium No Notes: Memoria Carbonate 02-17 (Same As: l 500 MG 21:37: Tums) [place] Chewable 00 Calcium Tablet Carbonate 500 mg = 200 mg elemental calcium Dose = mg calcium carbonate ( mg elemental calcium) Magnesium No Notes: Memori a Oxide 02-17 (Same as: l 21:37: Mag-Ox 400) Magnesium oxide 182ny=691d g elemental magnesium Dose=____m g magnesium oxide [...] 02-17 (Same as: l / 21:37: Duoneb) [place] Ipratropium 00 Keller 0.167 MG/ML Inhalant Solution Bisacodyl No Notes: Memori a - (Same As: l 21:37: Dulcolax, Bisco-Lax) Acetaminoph No Notes: Do M emoria en 02-17 not exceed l 21:37: 4 gm/day. Kress 00 (Same as: Tylenol) potassium No Notes: Memori a phosphate + 02-17 (Same as: l Sodium 21:37: K Chloride Phosphate. 0.9% IV 250 ) 1 mMol mL phoshate has 1.47 mEq potassium Infuse over 4 hours sodium No Special Memoria phosphate + 02-17 Instructio l Sodium 21:37: ns: FOR [place] Chloride ICU USE 0.9% IV 250 ONLY mL potassium No Notes: Memori a chloride 02-17 (Same as: l 21:37: Potassium Chloride) Calcium No Notes: Memoria Carbonate 02-17 (Same As: l 500 MG 21:37: Tums) [place]ress Chewable 00 Calcium Tablet Carbonate 500 mg = 200 mg elemental calcium Dose = mg calcium carbonate ( mg elemental calcium) Magnesium No Notes: Memori a Oxide 02-17 (Same as: l 21:37: Mag-Ox [place] 400) Magnesium oxide 296nj=934g g elemental magnesium Dose=____m g magnesium oxide (___mg elemental magnesium) Calcium No Special Memoria Gluconate 02-17 Instructio l 21:37: ns: FOR [place] ICU USE ONLY Neutra-Phos No Notes: David [...] 02-17 Rate: 125 l Sodium 21:37: ml/hr, [place] Chloride Infuse 0.0769 over: 8 MEQ/ML hr, Route: Injectable IV, Dosing Solution Weight 120 kg, Total Volume: 1,000, Start date: 02/17/15 16:37:00, Duration: 30 day, Stop date: 03/19/15 16:36:00 Albuterol No Notes: Memori a 0.833 MG/ML 02-17 (Same as: l / 21:37: Duoneb) [place] Ipratropium 00 Keller 0.167 MG/ML Inhalant Solution Bisacodyl No Notes: Memori a - (Same As: l 21:37: Dulcolax, [place] 00 Bisco-Lax) Acetaminoph No Notes: Do M emoria en 02-17 not exceed l 21:37: 4 gm/day. [place] 00 (Same as: Tylenol) potassium No Notes: Memori a phosphate + 02-17 (Same as: l Sodium 21:37: K [place] Chloride 00 Phosphate. 0.9% IV 250 ) 1 mMol mL phoshate has 1.47 mEq potassium Infuse over 4 hours sodium No Special Memoria phosphate + - Instructio l Sodium 21:37: ns: FOR [place] Chloride 00 ICU USE 0.9% IV 250 ONLY mL potassium No Notes: Memori a chloride 02-17 (Same as: l 21:37: Potassium [place] 00 Chloride) Calcium No Notes: Memoria Carbonate 02-17 (Same As: l 500 MG 21:37: Tums) [place] Chewable 00 Calcium Tablet Carbonate 500 mg = 200 mg elemental calcium Dose = mg calcium carbonate ( mg elemental calcium) Magnesium No Notes: Memori a Oxide 02-17 (Same as: l 21:37: Mag-Ox [place] 00 400) Magnesium oxide 023zn=011o g elemental magnesium Dose=____m g magnesium oxide (___mg elemental magnesium) Calcium No Special Memoria Gluconate 02-17 Instructio l 21:37: ns: FOR [place] 00 ICU USE ONLY Neutra-Phos No Notes: David cedrick 02-17 (Same as: l 21:37: Neutra-Bhupinder [place] 00 s) Each 1.25 gm pkt has 250mg phosphorou s. Mix w/2.5oz water and stir. Magnesium No Special Memor ia Sulfate -19 Instructio l 21:37: ns: FOR [place] ICU USE ONLY Saline No Notes: Memoria Flush 0.9% - (Same as: l 21:37: BD [place] Posiflush) Glucose 50 No 1,000 mL, Me moria MG/ML / -19 Rate: 125 l Sodium 21:37: ml/hr, [place] Chloride 00 Infuse 0.0769 over: 8 MEQ/ML hr, Route: Injectable IV, Dosing Solution Weight 120 kg, Total Volume: 1,000, Start date: 02/17/15 16:37:00, Duration: 30 day, Stop date: 03/19/15 16:36:00 Albuterol No Notes: Memori a 0.833 MG/ML - (Same as: l / 21:37: Duoneb) [place] Ipratropium 00 Keller 0.167 MG/ML Inhalant Solution Bisacodyl No Notes: Memori a 6-19 (Same As: l 21:37: Dulcolax, [place] 00 Bisco-Lax) Acetaminoph No Notes: Do M emoria en -19 not exceed l 21:37: 4 gm/day. [place] 00 (Same as: Tylenol) NovoLOG No Notes: Memoria FlexPen 6-19 Roll in l 21:30: palms of [place] 00 hands gently; Do not shake vigorously [...] 6-19 Roll in l 21:30: palms of [place] 00 hands gently; Do not shake vigorously . (Same as: NovoLOG) "single patient use only" Stable for 28 days at room temperatur e. Expires in days from ____Date Humalog No 10 unit, Memori a 6-19 Route: l 21:30: SUB-Q, [place] 00 TID-Before Meals, Dosing Weight 120, kg, Start date: 02/17/15 16:30:00, Duration: 30 day, Stop date: 03/19/15 11:30:00 NovoLOG No Notes: Memoria FlexPen - Roll in l 21:30: palms of [place] 00 hands gently; Do not shake vigorously . (Same as: NovoLOG) "single patient use only" Stable for 28 days at room temperatur e. Expires in days from ____Date Humalog No 10 unit, Memori a 6-19 Route: l 21:30: SUB-Q, [place] 00 TID-Before Meals, Dosing Weight 120, kg, Start date: 02/17/15 16:30:00, Duration: 30 day, Stop date: 03/19/15 11:30:00 metoprolol No Notes: Memor ia tartrate - (Same as: l 21:00: Lopressor) metoprolol No Notes: Memor ia tartrate -19 (Same as: l 21:00: Lopressor) metoprolol No Notes: Memor ia tartrate 6-19 (Same as: l 21:00: Lopressor) Lorazepam No [...] inserted" (Same as: Hypertonic Saline 3%) Sodium No Notes: Memoria Chloride 3% 02-17 "Administe l (Hypertonic 20:52: r by Rudy n ) IV 200 mL 00 central venous catheter or a peripheral ly inserted central catheter (PICC) line. 3% Sodium Chloride may be infused via peripheral administra tion into large vein (antecubit al) only in the case of emergency for short term use until a central line can be inserted" (Same as: Hypertonic Saline 3%) Sodium No Notes: Memoria Chloride 3% 02-17 "Administe l (Hypertonic 20:52: r by Rudy n ) IV 200 mL 00 central venous catheter or a peripheral ly inserted central catheter (PICC) line. 3% Sodium Chloride may be infused via peripheral administra tion into large vein (antecubit al) only in the case of emergency for short term use until a central line can be inserted" (Same as: Hypertonic Saline 3%) normal No 1,000 mL, Memori a saline 0.9% 6-19 Rate: 110 l IV 1,000 mL 18:41: ml/hr, Herm deepa 00 Infuse over: 9.1 hr, Route: IV, Dosing Weight 127.273 kg, Total Volume: 1,000, Start date: 02/17/15 13:41:00, Duration: 30 day, Stop date: 03/19/15 13:40:00 normal 0 No 1,000 mL, Memori a saline 0.9% 6-19 Rate: 110 l IV 1,000 mL 18:41: ml/hr, Herm deepa 00 Infuse over: 9.1 hr, Route: IV, Dosing Weight 127.273 kg, Total Volume: 1,000, Start date: 02/17/15 13:41:00, Duration: 30 day, Stop date: 03/19/15 13:40:00 normal 2014-0 No 1,000 mL, Memori a saline 0.9% 6-19 Rate: 110 l IV 1,000 mL 18:41: ml/hr, Herm deepa 00 Infuse over: 9.1 hr, Route: IV, Dosing Weight 127.273 kg, Total Volume: 1,000, Start date: 02/17/15 13:41:00, Duration: 30 day, Stop date: 03/19/15 13:40:00 Sodium 2015-0 No 1,000 mL, Memori a Chloride 6-19 1,000 l 0.154 17:06: ml/hr, [place] MEQ/ML 00 Infuse Injectable Over: 1 Solution Hour, Route: IV, ONCE, Priority: STAT, Dosing Weight 127.273 kg, Start date: 02/17/15 12:06:00, Duration: 1 doses or times, Stop date: 02/17/15 12:06:00 Sodium 2015-0 No 1,000 mL, Memori a Chloride 6-19 1,000 l 0.154 17:06: ml/hr, [place] MEQ/ML 00 Infuse Injectable Over: 1 Solution Hour, Route: IV, ONCE, Priority: STAT, Dosing Weight 127.273 kg, Start date: 02/17/15 12:06:00, Duration: 1 doses or times, Stop date: 02/17/15 12:06:00 Sodium 2015-0 No 1,000 mL, Memori a Chloride 6-19 1,000 l 0.154 17:06: ml/hr, [place] MEQ/ML 00 Infuse Injectable Over: 1 Solution [...] 6-19 100 mL, l 16:07: Route: IV, Kress 00 Drug form: INJ, ONCE, Dosing Weight 127.273, kg, Start date: 02/17/15 11:07:00, Stop date: 02/17/15 11:07:00 Keppra 2014- No 1,000 mg, Memori a 6-19 100 mL, l 16:07: Route: IV, K[place] 00 Drug form: INJ, ONCE, Dosing Weight 127.273, kg, Start date: 02/17/15 11:07:00, Stop date: 02/17/15 11:07:00 Ativan 2014-0 No 1 mg, Memoria 6-19 Route: l 16:06: IVP, Drug [place] 00 form: INJ, ONCE, Dosing Weight 127.273, kg, Priority: STAT, Start date: 02/17/15 11:06:00, Stop date: 02/17/15 11:06:00 Ativan 2014-0 No 1 mg, Memoria 6-19 Route: l 16:06: IVP, Drug [place] 00 form: INJ, ONCE, Dosing Weight 127.273, kg, Priority: STAT, Start date: 02/17/15 11:06:00, Stop date: 02/17/15 11:06:00 Ativan 2014-0 No 1 mg, Memoria 6-19 Route: l 16:06: IVP, Drug [place] 00 form: INJ, ONCE, Dosing Weight 127.273, [...] mg = Me moria 500 mg oral -19 2 tab, PO, l tablet 15:48: Daily, 0 [place] 00 Refill(s) latanoprost Yes 1 drp, David cedrick 0.05 MG/ML 6-19 BOTH EYES, l Ophthalmic 15:48: Bedtime, 0 H ermann Solution 00 Refill(s) Vitamin C Yes 1,000 mg = Me moria 500 mg oral 6-19 2 tab, PO, l tablet 15:48: Daily, 0 Kress 00 Refill(s) latanoprost Yes 1 drp, David cedrick 0.05 MG/ML 6-19 BOTH EYES, l Ophthalmic 15:48: Bedtime, 0 H ermann Solution 00 Refill(s) Vitamin C Yes 1,000 mg = Me moria 500 mg oral 6-19 2 tab, PO, l tablet 15:48: Daily, 0 Kress 00 Refill(s) latanoprost Yes 1 drp, David cedrick 0.05 MG/ML 6-19 BOTH EYES, l Ophthalmic 15:48: Bedtime, 0 [...] Rudy n Ophthalmic 00 Refill(s) Solution Symbicort 2015-0 Yes 2 puff, Memor ia 160/4.5 6-19 INHALATION l inhalation 15:46: , BID, 0 Her andujar aerosol 00 Refill(s) with adapter Symbicort 2015-0 Yes 2 puff, Memor ia 160/4.5 6-19 INHALATION l inhalation 15:46: , BID, 0 Her andujar aerosol 00 Refill(s) with adapter Symbicort 2015-0 Yes 2 puff, Memor ia 160/4.5 6-19 INHALATION l inhalation 15:46: , BID, 0 Her andujar aerosol 00 Refill(s) with adapter tiotropium 2014-0 Yes 18 Memoria 0.018 6-19 microgram, l MG/ACTUAT 15:45: INHALATION He rmann Inhalant 00 , Daily, 0 Powder Refill(s) [Spiriva] Ipratropium 0 Yes 500 Memori a 6-19 microgram, l 15:45: NEB, QID, [place] 00 0 Refill(s) tiotropium 2014-0 Yes 18 Memoria 0.018 6-19 microgram, l MG/ACTUAT 15:45: INHALATION He rmann Inhalant 00 , Daily, 0 Powder Refill(s) [Spiriva] Ipratropium 2014-0 Yes 500 Memori a 6-19 microgram, l 15:45: NEB, QID, [place] 00 0 Refill(s) tiotropium 2014-0 Yes 18 Memoria 0.018 6-19 microgram, l MG/ACTUAT 15:45: INHALATION He rmann Inhalant 00 , Daily, 0 Powder Refill(s) [Spiriva] Ipratropium 2014-0 Yes 500 Memori a 6-19 microgram, l 15:45: NEB, QID, [place] 00 0 Refill(s) Humalog 2014-0 Yes 10 unit, Memori a 6-19 SUB-Q, l 15:44: TID-Before [place] 00 Meals, 0 Refill(s) Lantus 2014-0 Yes 30 unit, Memoria 6-19 SUB-Q, l 15:44: Bedtime, 0 [place] 00 Refill(s) Humalog 2014-0 Yes 10 unit, Memori a 6-19 SUB-Q, l 15:44: TID-Before [place] 00 Meals, 0 Refill(s) Lantus Yes 30 unit, Memoria 6-19 SUB-Q, l 15:44: Bedtime, 0 [place] 00 Refill(s) Humalog Yes 10 unit, Memori a 6-19 SUB-Q, l 15:44: TID-Before Meals, 0 Refill(s) Lantus Yes 30 unit, Memoria 6-19 SUB-Q, l 15:44: Bedtime, 0 [place] 00 Refill(s) busPIRone 5 Yes 5 mg = 1 Me moria mg oral 6-19 tab, PO, l tablet 15:43: TID, 0 [place] 00 Refill(s) busPIRone 5 Yes 5 mg = 1 Me moria mg oral 6-19 tab, PO, l tablet 15:43: TID, 0 Kress 00 Refill(s) busPIRone 5 Yes 5 mg = 1 Me moria mg oral 6-19 tab, PO, l tablet 15:43: TID, 0 Kress 00 Refill(s) venlafaxine Yes 75 mg = 1 M emoria 75 mg oral 6-19 tab, PO, l tablet 15:42: Daily, 0 [place] 00 Refill(s) venlafaxine Yes 75 mg = 1 M emoria 75 mg oral 6-19 tab, PO, l tablet 15:42: Daily, 0 [place] 00 Refill(s) venlafaxine Yes 75 [...] moria 6-19 Bedtime, 0 l 15:40: Refill(s) docusate Yes 200 mg = 2 Mem oria sodium 100 6-19 cap, PO, l mg oral 15:34: BID, 0 Kress capsule 00 Refill(s) docusate Yes 200 mg = 2 Mem oria sodium 100 6-19 cap, PO, l mg oral 15:34: BID, 0 [place] capsule 00 Refill(s) docusate Yes 200 mg = 2 Mem oria sodium 100 6-19 cap, PO, l mg oral 15:34: BID, 0 [place] capsule 00 Refill(s) Saline No Notes: Memoria Flush 0.9% 6-19 (Same as: l 14:43: BD [place] 00 Posiflush) Saline No Notes: Memoria Flush 0.9% 6-19 (Same as: l 14:43: BD [place] 00 Posiflush) Saline No Notes: Memoria Flush 0.9% 6-19 (Same as: l 14:43: BD [place] 00 Posiflush) Naloxone No Notes: Memoria 6-19 Same as l 14:41: Narcan [place] 00 Naloxone No Notes: Memoria 6-19 Same as l 14:41: Narcan [place] 00 Naloxone No Notes: Memoria 6-19 Same as l 14:41: Narcan [place] 00 Albuterol 2013-09 Yes 3 ml, Memoria 0.833 MG/ML 0-11 INHALATION l / 17:55: , QID, # [place] Ipratropium 00 60 ea, 0 Keller Refill(s) 0.167 MG/ML Inhalant Solution [DuoNeb] {2013-09 Yes Special Memoria (Methylpred 0-11 Instructio l nisolone 4 17:55: ns: Take Her andujar MG Oral 00 with or Tablet without [Medrol]) } food Pack [Medrol Dosepak] Doxycycline 2013-09 Yes 100 mg = 1 Memoria 100 MG Oral 0-11 cap, PO, l Capsule 17:55: [id number], # Herm deepa 00 14 cap, 0 Refill(s) Albuterol 2013-09 Yes 3 ml, Memoria 0.833 MG/ML 0-11 INHALATION l / 17:55: , QID, # [place] Ipratropium 00 60 ea, 0 Keller Refill(s) 0.167 MG/ML Inhalant Solution [DuoNeb] {2013-09 Yes Special Memoria (Methylpred 0-11 Instructio l nisolone 4 17:55: ns: Take Her adnujar MG Oral 00 with or Tablet without [Medrol]) } food Pack [Medrol Dosepak] Doxycycline 2013-09 Yes 100 mg = 1 Memoria 100 MG Oral 0-11 cap, PO, l Capsule 17:55: [id number], # Herm deepa 00 14 cap, 0 Refill(s) Albuterol 2013-09 Yes 3 ml, Memoria 0.833 MG/ML 0-11 INHALATION l / 17:55: , QID, # [place] Ipratropium 00 60 ea, 0 Keller Refill(s) 0.167 MG/ML Inhalant Solution [DuoNeb] {2013-09 Yes Special Memoria (Methylpred 0-11 Instructio l nisolone 4 17:55: ns: Take Her andujar MG Oral 00 with or Tablet without [Medrol]) } food Pack [Medrol Dosepak] Doxycycline 2013-09 Yes 100 mg = 1 Memoria 100 MG Oral 0-11 cap, PO, l Capsule 17:55: [id number], # Herm deepa 00 14 cap, 0 Refill(s) Prednisone 2013-09 No Notes: Memor ia 0-11 Take with l 14:00: food. Prednisone 2013-09 No Notes: Memor ia 0-11 Take with l 14:00: food. Prednisone 2013-09 No Notes: Memor ia 0-11 [...] n 0-10 Same as: l 04:00: Zithromax Kress 00 Azithromyci 2013-09 No Notes: David cedrick n 0-10 Same as: l 04:00: Zithromax Kress 00 Fenofibrate 2013-09 No Notes: David cedrick 0-10 (Same as: l 02:00: Tricor) G[place] Fenofibrate 2013-09 No Notes: David cedrick 0-10 (Same as: l 02:00: Tricor) Kress Fenofibrate 2013-09 No Notes: David cedrick 0-10 (Same as: l 02:00: Tricor) Gó[place] Effexor XR 2013-09 No Notes: Do Me moria 0-09 not open, l 14:00: crush, or Kress 00 chew. (Same As: Effexor XR) One-A-Day 2013-09 No Notes: Memori a Men 50 Plus 0-09 Give with l 14:00: food. Gómez 00 (Same As: Stress 600 with Zinc) Influenza 2013-09 No Notes: Memori a Virus 0-09 (Same as: l Vaccine, 14:00: Fluzone Rudy n Inactivated 00 Quadriv[place] A-[place]- nt) (H3N2)-like virus (A-[place]- 6-2006 [facility] [place] X-175C) strain / Influenza Virus Vaccine, Inactivated A-[place]- 59-2007, IVR-148 (H1N1) strain / Influenza Virus Vaccine, Inactivated , B-- -2005-lik Furosemide 2013-09 No Notes: Memor ia 0-09 (Same as: l 14:00: Lasix) May Gómez 00 cause GI upset. Give with food or milk. Docusate 2013-09 No Notes: Memoria 0-09 (Same as: l 14:00: Colace) Kress 00 (Do Not Crush) Vitamin D3 2013-09 No Notes: Memor ia 0-09 Same as l 14:00: Vitamin D3 Gó[place] 00 aspirin 2013-09 No Notes: Memoria 0-09 Take with l 14:00: food. Góme[place] 00 Amlodipine 2013-09 No Notes: Memor ia 0-09 (Same as: l 14:00: Norvasc) [place] Amiodarone 2013-09 No Notes: Memor ia 0-09 (Same as: l 14:00: Cordarone) Kress 00 Alprazolam 2013-09 No Notes: Memor ia 0-09 With food l 14:00: or milk Kress 00 (Same as: Xanax) Effexor XR 2013-09 No Notes: Do Me moria 0-09 not open, l 14:00: crush, or Kress 00 chew. (Same As: Effexor XR) One-A-Day 2013-09 No Notes: Memori a Men 50 Plus 0-09 Give with l 14:00: food. Gómez 00 (Same As: Stress 600 with Zinc) Influenza 2013-09 No Notes: Memori a Virus 0-09 (Same as: l Vaccine, 14:00: Fluzone Rudy n Inactivated 00 Quadrivale A[place]- nt) (H3N2)-like virus ([place] [facility] [place] X-175C) strain / Influenza Virus Vaccine, Inactivated [place]- , IVR-148 (H1N1) strain / Influenza Virus Vaccine, Inactivated , B---lik Furosemide 2013-09 No Notes: Memor ia 0-09 (Same as: l 14:00: Lasix) May [place] 00 cause GI upset. Give with food or milk. Docusate 2013-09 No Notes: Memoria 0-09 (Same as: l 14:00: Colace) Kress (Do Not Crush) Vitamin D3 2013-09 No Notes: Memor ia 0-09 Same as l 14:00: Vitamin D3 [place] aspirin 2013-09 No Notes: Memoria 0-09 Take with l 14:00: food. [place] 00 Amlodipine 2013-09 No Notes: Memor ia 0-09 (Same as: l 14:00: Norvasc) [place] Amiodarone 2013-09 No Notes: Memor ia 0-09 (Same as: l 14:00: Cordarone) [place] Alprazolam 2013-09 No Notes: Memor ia 0-09 With food l 14:00: or milk [place] 00 (Same as: Xanax) Effexor XR 2013-09 No Notes: Do Me moria 0-09 not open, l 14:00: crush, or [place] 00 chew. (Same As: Effexor XR) One-A-Day 2013-09 No Notes: Memori a Men 50 Plus 0-09 Give with l 14:00: food. Kress 00 (Same As: Stress 600 with Zinc) Influenza 2013-09 No Notes: Memori a Virus 0-09 (Same as: l Vaccine, 14:00: Fluzone Rudy n Inactivated 00 Quadrivale A-[place]- nt) (H3N2)-like virus ([place] [facility] [place] X-175C) strain / Influenza Virus Vaccine, Inactivated [place]- , IVR-148 (H1N1) strain / Influenza Virus Vaccine, Inactivated , B---lik Furosemide 2013-09 No Notes: Memor ia 0-09 (Same as: l 14:00: Lasix) May [place] 00 cause GI upset. Give with food or milk. Docusate 2013-09 No Notes: Memoria 0-09 (Same as: l 14:00: Colace) [place] 00 (Do Not Crush) Vitamin D3 2013-09 No Notes: Memor ia 0-09 Same as l 14:00: Vitamin D3 [place] 00 aspirin 2013-09 No Notes: Memoria 0-09 Take with l 14:00: food. [place] 00 Amlodipine 2013-09 No Notes: Memor ia 0-09 (Same as: l 14:00: Norvasc) [place]ress 00 Amiodarone 2013-09 No Notes: Memor ia 0-09 (Same as: l 14:00: Cordarone) [place] Alprazolam 2013-09 No Notes: Memor ia 0-09 With food l 14:00: or milk [place] 00 (Same as: Xanax) Enoxaparin 2013-09 No Notes: Memor ia 0-09 (Same as: l 13:00: Lovenox) [place] Enoxaparin 2013-09 No Notes: Memor ia 0-09 (Same as: l 13:00: Lovenox) [place]ress Enoxaparin 2013-09 No Notes: Memor ia 0-09 (Same as: l 13:00: Lovenox) [place] 00 Thyroxine 2013-09 No Notes: Memori a 0-09 Take 1 l 11:30: hour Kress 00 before or 2 hours after meal; [...] l / 08:00: Duoneb) [place] Ipratropium 00 Keller 0.167 MG/ML Inhalant Solution Albuterol 2013-09 No Notes: Memori a 0.833 MG/ML 0-09 (Same as: l / 08:00: Duoneb) [place] Ipratropium 00 Keller 0.167 MG/ML Inhalant Solution Albuterol 2013-09 No Notes: Memori a 0.833 MG/ML 0-09 (Same as: l / 08:00: Duoneb) [place] Ipratropium 00 Keller 0.167 MG/ML Inhalant Solution methylPREDN 2013-09 No [...] M emoria 0-09 MILK/ANTAC l 05:00: IDS/IRON [place]ress 00 Take 1 hour before or 2 hours after dairy products methylPREDN 2013-09 No Notes: David cedrick ISolone 0-09 (Same l SODium 05:00: as:Solu-ME Padmini nn SUCCinate 00 DROL, A-Methapre d) Doxycycline 2013-09 No Notes: NO M emoria 0-09 MILK/ANTAC l 05:00: IDS/IRON [place] 00 Take 1 hour before or 2 hours after dairy products Levemir 2013-09 No Notes: Memoria 0-09 Same as l 04:45: Levemir [place] 00 "single patient use only" Levemir 2013-09 No Notes: Memoria 0-09 Same as l 04:45: Levemir [place] 00 "single patient use only" Levemir 2013-09 No Notes: Memoria 0-09 Same as l 04:45: Levemir Kress 00 "single patient use only" Trazodone 2013-09 No Notes: Memori a 0-09 (Same As: l 04:38: Desyrel) [place] Risperidone 2013-09 No Notes: David cedrick 0-09 (Same as: l 04:38: Risperdal) [place] Trazodone 2013-09 No Notes: Memori a 0-09 (Same As: l 04:38: Desyrel) [place] Risperidone 2013-09 No Notes: David cedrick 0-09 (Same as: l 04:38: Risperdal) Kress Trazodone 2013-09 No Notes: Memori a 0-09 (Same As: l 04:38: Desyrel) [place] Risperidone 2013-09 No Notes: David cedrick 0-09 (Same as: l 04:38: Risperdal) Kress metoprolol 2013-09 No Notes: Memor ia tartrate 0-09 (Same as: l 04:37: Lopressor) Kress 00 Lisinopril 2013-09 No Notes: Memor ia 0-09 (Same as: l 04:37: Prinivil, [place] Zestril) metoprolol 2013-09 No Notes: Memor ia tartrate 0-09 (Same as: l 04:37: Lopressor) [place] Lisinopril 2013-09 No Notes: Memor ia 0-09 (Same as: l 04:37: Prinivil, [place] 00 Zestril) metoprolol 2013-09 No Notes: Memor ia tartrate 0-09 (Same as: l 04:37: Lopressor) Kress 00 Lisinopril 2013-09 No Notes: Memor ia 0-09 (Same as: l 04:37: Prinivil, [place] 00 Zestril) Alprazolam 2013-09 No Notes: Memor ia 0-09 With food l 04:35: or milk Kress 00 (Same as: Xanax) Alprazolam 2013-09 No Notes: Memor ia 0-09 With food l 04:35: or milk G[place] 00 (Same as: Xanax) Alprazolam 2013-09 No Notes: Memor ia 0-09 With food l 04:35: or milk G[place] 00 (Same as: Xanax) Insulin, 2013-09 No Notes: Memoria Aspart, 0-09 Roll in l Human 04:33: palms of Góme[place] 00 hands gently; Do not shake vigorously . (Same as: NovoLOG) "single patient use only" Stable for 28 days at room temperatur e. Expires in days from ____Date Glucagon 2013-09 No 1 mg, Memoria 0-09 Route: IM, l 04:33: Drug form: Kress 00 PDR/INJ, PRN, Dosing Weight 110.966, kg, PRN Blood Glucose Results, Start date: 06/08/14 23:33:00, Duration: 30 day, Stop date: 07/08/14 22:32:00 Dextrose 2013-09 No 25 gm, 50 David cedrick 50% Syringe 0-09 mL, Route: l 04:33: IVP, Drug Kress 00 Form: INJ, Dosing Weight 110.966, kg, PRN, PRN Blood Glucose Results, Start date: 06/08/14 23:33:00, Duration: 30 day, Stop date: 07/08/14 22:32:00 Insulin, 2013-09 No Notes: Memoria Aspart, 0-09 Roll in l Human 04:33: palms of Kress 00 hands gently; Do not shake vigorously [...] 0-09 mL, Route: l 04:33: IVP, Drug Kress 00 Form: INJ, Dosing Weight 110.966, kg, PRN, PRN Blood Glucose Results, Start date: 06/08/14 23:33:00, Duration: 30 day, Stop date: 07/08/14 22:32:00 Insulin, 2013-09 No Notes: Memoria Aspart, 0-09 Roll in l Human 04:33: palms of [place] 00 hands gently; Do not shake vigorously . (Same as: NovoLOG) "single patient use only" Stable for 28 days at room temperatur e. Expires in days from ____Date Glucagon 2013-09 No 1 mg, Memoria 0-09 Route: IM, l 04:33: Drug form: Kress 00 PDR/INJ, PRN, Dosing Weight 110.966, kg, [...] 0-09 (Same As: l 04:31: Lioresal) [place] Baclofen 2013-09 No Notes: Memoria 0-09 (Same As: l 04:31: Lioresal) [place]ress Baclofen 2013-09 No Notes: Memoria 0-09 (Same As: l 04:31: Lioresal) [place] Albuterol 2013-09 No Notes: SEE Me moria 0.83 MG/ML 0-09 RT l Inhalant 04:20: DOCUMENTAT Her andujar Solution 00 ION Albuterol 2013-09 No Notes: SEE Me moria 0.83 MG/ML 0-09 RT l Inhalant 04:20: DOCUMENTAT Her andujar Solution 00 ION Albuterol 2013-09 No Notes: SEE Me moria 0.83 MG/ML 0-09 RT l Inhalant 04:20: DOCUMENTAT Her andujar Solution 00 ION Non-Formula 2013-09 Yes Special [facility] Home 0-09 Instructio l Medication 04:18: ns: Kress 00 Unknown eye drops; filled at [facility] in [place] aspirin 2013-09 Yes 81 mg, PO, David cedrick 0-09 Daily l 04:18: G[place]mez 00 Vitamin D3 2013-09 Yes 200 Memoria 0-09 IntlUnit, l 04:18: PO, Daily Kress 00 Non-Formula 2013-09 Yes Special [facility] Home 0-09 Instructio l Medication 04:18: ns: Kress 00 Unknown eye drops; filled at [facility] in [place] aspirin 2013-09 Yes 81 mg, PO, David cedrick 0-09 Daily l 04:18: Kress 00 Vitamin D3 2013-09 Yes 200 Memoria 0-09 IntlUnit, l 04:18: PO, Daily [place]ress 00 Non-Formula 2013-09 Yes Special Mem [facility]ria ry Home 0-09 Instructio l Medication 04:18: ns: [place]ress 00 Unknown eye drops; filled at [facility] in [place] aspirin 2013-09 Yes 81 mg, PO, David cedrick 0-09 Daily l 04:18: Kress 00 Vitamin D3 2013-09 Yes 200 Memoria 0-09 IntlUnit, l 04:18: PO, Daily [place] 00 -A-Day 2013-09 Yes 1 tab, PO, Me moria Men 50 Plus 0-09 Daily l 04:17: [place] 00 One-A-Day 2013-09 Yes 1 tab, PO, Me moria Men 50 Plus 0-09 Daily l 04:17: -A-2013-09 Yes 1 tab, PO, Me moria Men [...] Memoria 0-09 microgram, l 04:15: PO, Daily ia 2013-09 Yes 50 mg, PO, David cedrick [...] David cedrick 0-09 PO, TID l 04:09: [place] Furosemide 2013-09 Yes 20 mg, PO, M emoria 0-09 Daily l 04:09: Zithromax 2013-09 No Notes: Memori a 0-09 Same as: l 03:09: Zithromax Zithromax 2013-09 No Notes: Memori a 0-09 Same as: l 03:09: Zithromax Zithromax 2013-09 No Notes: Memori a 0-09 Same as: l 03:09: Zithromax Albuterol 2013-09 No Notes: Memori a 0.833 MG/ML 0-09 (Same as: :00: Duoneb) Ipratropium 00 Keller 0.167 MG/ML Inhalant Solution [DuoNeb] Albuterol 2013-09 No Notes: Memori a 0.833 MG/ML 0-09 (Same as: 01:00: Duoneb) Kress Ipratropium 00 Keller 0.167 MG/ML Inhalant Solution [DuoNeb] Albuterol 2013-09 No Notes: Memori a 0.833 MG/ML 0-09 (Same as: 01:00: Duoneb) [place] Ipratropium 00 Keller 0.167 MG/ML Inhalant Solution [DuoNeb] Saline 2013-09 No Notes: Memoria Flush 0.9% 0-09 (Same as: l 00:26: BD Kress 00 Posiflush) Saline 2013-09 No Notes: Memoria Flush 0.9% 0-09 (Same as: l 00:26: BD [place] 00 Posiflush) Saline 2013-09 No Notes: Memoria Flush 0.9% 0-09 (Same as: l 00:26: BD [place] 00 Posiflush) insulin 2012-09 Yes 13U inject 13 Unive [...] ity of 0.2 % 09:36: both eyes [place] ophthalmic 18 2 (two) Medica l solution times Branch daily. lisinopril 2012-09 Yes 20mg Take 20 mg U nivers (PRINIVIL,Z -22 by mouth ity of ESTRIL) 20 09:36: daily. [place] mg tablet 18 Medical Branch SENNOSIDES 2012-09 Yes Take by Univ ers (SENOKOT 1-22 mouth. ity of ORAL) 09:36: Indication [place] [id number] s: take 2 Medical tabs by Branch mouth at bedtime amLODIPine 2012-09 Yes 10mg Take 10 mg U nivers (NORVASC) 09-22 by mouth ity of 10 mg 09:36: daily. [place] tablet 18 Medical Branch latanoprost 2012-09 Yes 1[drp] 1 Drop Un jewels (XALATAN) -22 every ity of 0.005 % 09:36: evening. [place] ophthalmic Medical drops Branch risperidone 2012-09 Yes 4mg Take 4 mg U nivers (RISPERDAL) 09-22 by mouth ity of 3 mg tablet 09:36: at [place] [id number] bedtime. Medical Branch acetaminoph 2012-09 Yes Take [...] mouth ity of (MILK OF 09:36: daily. [place] MAGNESIA) Medical 400 mg/5 mL Branch suspension insulin 2012-09 Yes 13U inject 13 [facility] [place] [facility] glarg[facility] 1-22 Units ity of (LANTUS) 09:36: under the [facility] s 100 unit/mL 18 skin at Medic al injection bedtime. Branch venlafaxine 2012-09 Yes 150mg Take 150 U nivers XR (EFFEXOR 1-22 mg by ity of XR) 150 mg 09:36: mouth [place] 24 hr 18 daily with Medical capsule breakfast. Branch brimonidine 2012-09 Yes 1[drp] Place 1 U nivers (ALPHAGAN) 1-22 Drop in ity of 0.2 % 09:36: both eyes [place] ophthalmic 18 2 (two) Medica l solution times Branch daily. lisinopril 2012-09 Yes 20mg Take 20 mg U nivers (PRINIVIL,Z -22 by mouth ity of ESTRIL) 20 09:36: daily. [place] mg tablet 18 Medical Branch SENNOSIDES 2012-09 Yes Take by [facility] [place] [facility] ers (SENOKOT 1-22 mouth. ity of ORAL) 09:36: Indication [place] 18 s: take 2 Medical tabs by Branch mouth at bedtime amLODIPine 2012-09 Yes 10mg Take 10 mg U nivers (NORVASC) -22 by mouth ity of 10 mg 09:36: daily. [place] tablet 18 Medical Branch latanoprost 2012-09 Yes 1[drp] 1 Drop Un jewels (XALATAN) -22 every ity of 0.005 % 09:36: evening. [place] ophthalmic 18 Medical drops Branch risperidone 2012-09 Yes 4mg Take 4 mg U nivers (RISPERDAL) -22 by mouth ity of 3 mg tablet 09:36: at [place] 18 bedtime. Medical Branch acetaminoph 2012-09 Yes [...] by mouth ity of THIAGO) 09:36: daily. [place] tablet 18 Medical Branch traZODONE 2012-09 Yes 50mg Take 50 mg Un jewels (DESYREL) 1-22 by mouth ity of 50 mg 09:36: at [place] tablet 18 bedtime. Medical Branch magnesium 2012-09 Yes 30mL Take 30 mL Un jewels hydroxide -22 by mouth ity of (MILK OF 09:36: daily. [place] MAGNESIA) Medical 400 mg/5 mL [place] suspension insulin 2012-09 Yes 13U inject 13 [facility] glargine 1-22 Units ity of (LANTUS) 09:36: under the [facility] 100 unit/mL 18 skin at Medic al injection bedtime. Branch venlafaxine 2012-09 Yes 150mg Take 150 U nivers XR (EFFEXOR 1-22 mg by ity of XR) 150 mg 09:36: mouth [place] 24 hr 18 daily with Medical capsule breakfast. Branch brimonidine 2012-09 Yes 1[drp] Place 1 U nivers (ALPHAGAN) 1-22 Drop in ity of 0.2 % 09:36: both eyes [place] ophthalmic 2 (two) Medica l solution times [place] daily. lisinopril 2012-09 Yes 20mg Take 20 mg U nivers (PRINIVIL,Z 1-22 by mouth ity of ESTRIL) 20 09:36: daily. [place] mg tablet 18 Medical Branch SENNOSIDES 2012-09 Yes Take by [facility] [place] [facility] ers (SENOKOT 1-22 mouth. ity of ORAL) 09:36: Indication [place] 18 s: take 2 Medical tabs by Branch mouth at bedtime amLODIPine 2012-09 Yes 10mg Take 10 mg U nivers (NORVASC) 1-22 by mouth ity of 10 mg 09:36: daily. [place] tablet 18 Medical Branch latanoprost 2012-09 Yes 1[drp] 1 Drop Un jewels (XALATAN) 1-22 every ity of 0.005 % 09:36: evening. [place] ophthalmic 18 Medical drops Branch risperidone 2012-09 Yes 4mg Take 4 mg U nivers (RISPERDAL) 1-22 by mouth ity of 3 mg tablet 09:36: at [place] 18 bedtime. Medical Branch acetaminoph 2012-09 Yes [...] by mouth ity of THIAGO) 09:36: daily. [place] tablet 18 Medical Branch traZODONE 2012-09 Yes 50mg Take 50 mg Un jewels (DESYREL) 22 by mouth ity of 50 mg 09:36: at [place] tablet 18 bedtime. Medical Branch magnesium 2012-09 Yes 30mL Take 30 mL Un jewels hydroxide 09-22 by mouth ity of (MILK OF 09:36: daily. [place] MAGNESIA) 18 Medical 400 mg/5 mL Branch suspension insulin 2012-09 Yes 13U inject 13 [facility] [place] [facility] glargine 1-22 Units ity of (LANTUS) 09:36: under the [facility] 100 unit/mL 18 skin at Medic al injection bedtime. Branch venlafaxine 2012-09 Yes 150mg Take 150 U nivers XR (EFFEXOR 1-22 mg by ity of XR) 150 mg 09:36: mouth [place] 24 hr 18 daily with Medical capsule breakfast. Branch brimonidine 2012-09 Yes 1[drp] Place 1 U nivers (ALPHAGAN) 1-22 Drop in ity of 0.2 % 09:36: both eyes [place] ophthalmic 18 2 (two) Medica l solution times [place] daily. lisinopril 2012-09 Yes 20mg Take 20 mg U nivers (PRINIVIL,Z 1-22 by mouth ity of ESTRIL) 20 09:36: daily. [place] mg tablet 18 Medical Branch SENNOSIDES 2012-09 Yes Take by Univ ers (SENOKOT 1-22 mouth. ity of ORAL) 09:36: Indication [place] 18 s: take 2 Medical tabs by Branch mouth at bedtime amLODIPine 2012-09 Yes 10mg Take 10 mg U nivers (NORVASC) -22 by mouth ity of 10 mg 09:36: daily. [place] tablet 18 Medical Branch latanoprost 2012-09 Yes 1[drp] 1 Drop Un jewels (XALATAN) 22 every ity of 0.005 % 09:36: evening. [place] ophthalmic 18 Medical drops Branch risperidone 2012-09 [...] by mouth ity of THIAGO) 09:36: daily. [place] tablet 18 Medical Branch traZODONE 2012-09 Yes 50mg Take 50 mg Un jewels (DESYREL) 09-22 by mouth ity of 50 mg 09:36: at [place] tablet 18 bedtime. Medical Branch magnesium 2012-09 Yes 30mL Take 30 mL Un jewels hydroxide 22 by mouth ity of (MILK OF 09:36: daily. [place] MAGNESIA) [address] [place] [address] 400 mg/5 mL Branch suspension Levothyroxi 2012-09 Yes Take by Uni vers ne -22 mouth ity of (TIROSINT) 09:36: daily. [place] 25 mcg Cap 17 Medical Branch amiodarone 2012-09 Yes 200mg Take 200 Un jewels (CORDARONE) 1-22 mg by ity of 200 mg 09:36: mouth [place] tablet 17 daily. Medical Branch Levothyroxi 2012-09 Yes Take by Uni vers ne -22 mouth ity of (TIROSINT) 09:36: daily. [place] 25 mcg Cap 17 Medical Branch amiodarone 2012-09 Yes 200mg Take 200 Un jewels (CORDARONE) 1-22 mg by ity of 200 mg 09:36: mouth [place] tablet 17 daily. Medical Branch Levothyroxi 2012-09 Yes Take by Uni vers ne 1-22 mouth ity of (TIROSINT) 09:36: daily. [place] 25 mcg Cap 17 Medical Branch amiodarone 2012-09 Yes 200mg Take 200 Un jewels (CORDARONE) 1-22 mg by ity of 200 mg 09:36: mouth [place] tablet 17 daily. Medical Branch Levothyroxi 2012-09 Yes Take by Uni vers ne 1-22 mouth ity of (TIROSINT) 09:36: daily. [place] 25 mcg Cap 17 Medical Branch amiodarone [...] 100mg 0.5 mL by Univers e cypionate 7 Intramuscu it y of (DEPO-TESTO 00:00: lar route [place] STERONE) 00 every 2 Medical 200 mg/mL (two) Branch injection weeks. furosemide Yes Univers (LASIX) 20 - ity of mg tablet 00:00: [place] [facility] testosteron Yes 100mg 0.5 mL [...] 4-04 by mouth ity of 00:00: daily. [address] BACLOFEN Yes 5mg Take 5 mg Univ ers ORAL 4-04 by mouth 2 ity of 00:00: (two) [place] 00 times Medical daily. Branch EC ASPIRIN Yes 81mg Take 81 mg U nivers ORAL 4-04 by mouth ity of 00:00: daily. [address] BACLOFEN Yes 5mg Take 5 mg Univ ers ORAL 4-04 by mouth 2 ity of 00:00: (two) [place] 00 times Medical daily. Branch EC ASPIRIN Yes 81mg Take 81 mg U nivers ORAL 4-04 by mouth ity of 00:00: daily. [address] Lisinopril Lisinopril Yes Jenna 1 tablet Common [facility] Aspirin Aspirin Yes Jenna 1 tablet Comm on [facility] Betaxolol Betaxolol Yes Jenna 1 drop Co mmon HCl HCl [facility] into Spirit affected [facility] eye [facility] Lisinopril Lisinopril Yes Jenna 1 tablet Common [facility] Clonidine Clonidine Yes Jenna TAKE 1 Co mmon HCl HCl [place] TABLET BY Spiri t MOUTH - [facility] TWICE [facility] Atorvastati Atorvastati Yes Jenna TAKE 1 Common n Calcium n Calcium [place] TABLET BY Spirit MOUTH - [facility] EVERY St NIGHT AT [facility] Gaby Griffin Yes Jenna TAKE 1 Common [place] TABLET BY Spiri t MOUTH - CHI DAILY [facility] Venlafaxine Venlafaxine Yes Jenna 1 capsule Common HCl ER HCl ER [place] with food S pirit [facility] Latanoprost Latanoprost Yes Jenna INT 1 GTT Common [place] IN OU QHS. Spir it [facility] Trazodone Trazodone Yes Jenna TK 1 T PO Common HCl HCl [place] QHS. Spirit [facility] BusPIRone BusPIRone Yes Jenna 1 tablet Common HCl HCl [facility] Levothyroxi Levothyroxi Yes Jenna 1 tablet Common ne Sodium ne Sodium [facility] on an Spirit empty - CHI stomach in [facility] Venlafaxine Venlafaxine Yes Jenna TAKE 1 Common HCl HCl [place] TABLET BY Spiri t MOUTH - [facility] Furosemide Furosemide Yes Jenna 1 tablet Common [facility] BD Pen BD Pen Yes Jenna INJECT Common Needle Disha Needle Disha [facility] USING Spirit U/F U/F INSULIN D. [facility] Divalproex Divalproex Yes Jenna as Co mmon Sodium ER Sodium ER [facility] Vitamin C Vitamin C Yes Jenna 1 tablet Common [facility] Docusate Docusate Yes Jenna 2 capsule C ommon Sodium Sodium [place] as needed S pirit [facility] Xarelto Xarelto Yes Jenna 20 MG PO Comm on [facility] Baclofen Baclofen Yes Jenna TK 1 T PO C ommon [facility] Q 8 H PRN. Spir it - CHI [facility] Lasix Lasix Yes Jenna 40 MG PO Common [facility] Tresiba Tresiba Yes Jenna 70 units Comm on FlexTouch FlexTouch [facility] Amiodarone Amiodarone Yes Jenna TAKE 1 Common HCl HCl [place] TABLET BY Spiri t MOUTH - CHI EVERY DAY. [facility] Risperidone Risperidone Yes Jenna TAKE 3 Common [place] TABLETS BY Spir it MOUTH ONCE - CHI A DAY. [facility] Symbicort Symbicort Yes Jenna inhale 2 Common [place] puffs po Spirit bid. [facility] Amlodipine Amlodipine Yes Jenna TAKE 1 Common Besylate Besylate [facility] TABLET BY Spirit MOUTH - CHI DAILY [facility] Immunizations Ordered Immunization Filled Immunization Date Status Commen ts Source Name Name influenza virus 2017-06-02 Completed [facility] vaccine, inactivated 21:27:00 [facility] deepa influenza virus 2017-06-02 Completed [facility] vaccine, inactivated 21:27:00 [facility] deepa influenza virus 2017-06-02 Completed [facility] vaccine, inactivated 21:27:00 [facility] deepa influenza virus 2014-06-09 Completed [facility] vaccine, inactivated 14:35:00 [facility] deepa influenza virus 2014-06-09 Completed [facility] vaccine, inactivated 14:35:00 [facility] deepa influenza virus 2014-06-09 Completed [facility] vaccine, inactivated 14:35:00 [facility] deepa Vital Signs Vital Name Observation Time Observation Value Comments Source Respitory Rate 2017-06-10 22:17:00 Memori al [place] Systolic (mm Hg) 2017-06-10 22:17:00 David rial [place] Diastolic (mm Hg) 2017-06-10 22:17:00 Mem orial [place] Temperature Oral (F) 2017-06-10 22:17:00 98.2 F [facility] [place] Heart Rate 2017-06-10 22:17:00 [facility] [place] Systolic (mm Hg) 2017-06-10 17:00:00 David rial [place] Diastolic (mm Hg) 2017-06-10 17:00:00 Mem orial [place] Respitory Rate 2017-06-10 17:00:00 Memori al [place] Heart Rate 2017-06-10 17:00:00 [facility] [place] Temperature Oral (F) 2017-06-10 17:00:00 98.3 F [facility] [place] Heart Rate 2017-06-10 12:50:00 [facility] [place] Temperature Oral (F) 2017-06-10 12:50:00 98.2 F [facility] [place] Respitory Rate 2017-06-10 12:50:00 Memori al [place] Systolic (mm Hg) 2017-06-10 12:50:00 David rial [place] Diastolic (mm Hg) 2017-06-10 12:50:00 Mem orial [place] BMI Calculated 2017 16:42:00 Memori al [place] Weight 2017 16:42:00 [facility] [place] Height 2017 16:42:00 185.42 cm [facility] [place] BMI Calculated 2017 15:56:00 Memori al [place] Weight 2017 15:56:00 [facility] [place] Height 2017 15:56:00 185.42 cm [facility] [place] BMI Calculated 2017 10:33:00 Memori al [place] Height 2017 10:33:00 185.42 cm [facility] [place] Weight 2017 10:33:00 [facility] [place] Heart Rate 2016-07-30 18:00:00 [facility] [place] Respitory Rate 2016-07-30 18:00:00 Memori al [place] Systolic (mm Hg) 2016-07-30 18:00:00 David rial [place] Diastolic (mm Hg) 2016-07-30 18:00:00 Mem orial Gmóez Temperature Oral (F) 2016-07-30 18:00:00 97.5 F [facility] [place] Systolic (mm Hg) 2016-07-30 14:00:00 David rial [place] Diastolic (mm Hg) 2016-07-30 14:00:00 Mem orial [place] Heart Rate 2016-07-30 14:00:00 [facility] [place] Respitory Rate 2016-07-30 14:00:00 Memori al [place] Temperature Oral (F) 2016-07-30 14:00:00 97.5 F [facility] [place] Respitory Rate 2016-07-30 13:39:00 Memori al [place] Temperature Oral (F) 2016-07-30 06:19:00 98.1 F [facility] [place] Heart Rate 2016-07-30 06:19:00 [facility] [place] Systolic (mm Hg) 2016-07-30 06:19:00 David rial [place] Diastolic (mm Hg) 2016-07-30 06:19:00 Mem orial [place] Weight 2016-07-28 14:21:00 [facility] [place] Weight 2016-07-28 09:33:00 [facility] [place] Height 2016-07-28 09:33:00 182.88 cm [facility] [place] BMI Calculated 2016-07-28 09:33:00 Memori al [place] Weight 2016-07-28 02:47:00 [facility] [place] BMI Calculated 2016-07-28 02:47:00 Memori al [place] Height 2016-07-28 02:47:00 180.34 cm [facility] [place] Respitory Rate 2016-05-30 18:30:00 Memori al [place] Systolic (mm Hg) 2016-05-30 18:30:00 David rial [place] Diastolic (mm Hg) 2016-05-30 18:30:00 Mem orial [place] Temperature Oral (F) 2016-05-30 18:30:00 98.6 F [facility] [place] Respitory Rate 2016-05-30 18:00:00 Memori al [place] Systolic (mm Hg) 2016-05-30 18:00:00 David rial [place] Diastolic (mm Hg) 2016-05-30 18:00:00 Mem orial [place] Respitory Rate 2016-05-30 17:30:00 Memori al [place] Systolic (mm Hg) 2016-05-30 17:30:00 David rial [place] Diastolic (mm Hg) 2016-05-30 17:30:00 Mem orial [place] Heart Rate 2016-05-30 15:14:00 [facility] [place] BMI Calculated 2016-05-30 14:36:00 Memori al [place] Weight 2016-05-30 14:36:00 [facility] [place] Heart Rate 2016-05-30 14:36:00 [facility] [place] Height 2016-05-30 14:36:00 182.88 cm Memorial [place] Temperature Oral (F) 2016-05-30 14:36:00 98.7 F [facility] [place] Systolic (mm Hg) 2015-02-19 16:00:00 David rial [place] Diastolic (mm Hg) 2015-02-19 16:00:00 Mem orial [place] Respitory Rate 2015-02-19 16:00:00 Memori al [place] Systolic (mm Hg) 2015-02-19 15:00:00 David rial [place] Diastolic (mm Hg) 2015-02-19 15:00:00 Mem orial [place] Respitory Rate 2015-02-19 15:00:00 Memori al [place] Respitory Rate 2015-02-19 14:00:00 Memori al [place] Systolic (mm Hg) 2015-02-19 14:00:00 David rial [place] Diastolic (mm Hg) 2015-02-19 14:00:00 Mem orial [place] Temperature Oral (F) 2015-02-18 22:07:00 97.7 F [facility] [place] Temperature Oral (F) 2015-02-18 16:51:00 98.6 F [facility] Weight 2015-02-18 15:03:00 [facility] Temperature Oral (F) 2015-02-18 12:48:00 98.5 F [facility] Heart Rate 2015-02-17 18:50:00 [facility] Height 2015-02-17 18:41:00 185.42 cm [facility] Weight 2015-02-17 18:41:00 [facility] BMI Calculated 2015-02-17 18:41:00 [facility] Heart Rate 2015-02-17 17:52:00 [facility] Heart Rate 2015-02-17 17:34:00 [facility] Weight 2015-02-17 14:33:00 [facility] BMI Calculated 2015-02-17 14:33:00 [facility] Height 2015-02-17 14:33:00 185.42 cm [facility] Diastolic (mm Hg) 2014-06-11 17:24:00 [facility] Systolic (mm Hg) 2014-06-11 17:24:00 [facility] Respitory Rate 2014-06-11 17:24:00 [facility] Heart Rate 2014-06-11 17:24:00 [facility] Temperature Oral (F) 2014-06-11 17:24:00 97.4 F [facility] Respitory Rate 2014-06-11 12:27:00 [facility] Heart Rate 2014-06-11 12:26:00 [facility] Temperature Oral (F) 2014-06-11 12:26:00 98.5 F [facility] Systolic (mm Hg) 2014-06-11 12:26:00 [facility] Diastolic (mm Hg) 2014-06-11 12:26:00 [facility] Respitory Rate 2014-06-11 12:26:00 [facility] Systolic (mm Hg) 2014-06-11 05:07:00 [facility] Diastolic (mm Hg) 2014-06-11 05:07:00 [facility] Temperature Oral (F) 2014-06-11 05:07:00 98.4 F [facility] Heart Rate 2014-06-11 05:07:00 [facility] BMI Calculated 2014-06-09 05:37:00 [facility] Weight 2014-06-09 05:37:00 [facility] Height 2014-06-09 05:37:00 185.42 cm [facility] Height 2014-06-09 00:05:00 185.42 cm [facility] Weight 2014-06-09 00:05:00 [facility] BMI Calculated 2014-06-09 00:05:00 [facility] Procedures Procedure Date / Time Performed Performing Clinician [facility] e CT LUMBAR SPINE WO 2022-01-14 14:48:02 Andrew Oviedo [facility] CONSENT/REFUSAL FOR 2022-01-14 14:08:22 Doctor Unassigned, No Un [facility] DIAGNOSIS AND Name Medical [facility] TREATMENT ASSIGNMENT OF BENEFITS 2022-01-14 14:07:33 Doctor Unassigned, No [facility] XR BONE SURVEY LTD 2021-12-28 15:13:00 Erlin Rodriguez [facility] ASSIGNMENT OF BENEFITS 2021-12-28 13:11:23 Doctor Unassigned, No [facility] Aortic aneurysm repair [facility] Encounters Start End Encounter Admission Attending Care Care Encounter Source Date/Time Date/Time Type Type Clinicians Facility Department ID 2021-11-30 Outpatient [facility] [id number] [place] 15:40:57 [id number] [facility] 2021-11-28 Outpatient [facility] [id number] [place] 14:03:42 [id number] [facility] 2021-09-26 Outpatient [facility] [id number] 10:59:02 Jenna Fofana08 [facility] 2022-01-14 2022-01-14 [facility] [id number] Univers 09:07:59 23:59:[address] [facility] 2022-01-14 2022-01-14 [facility] [id number] Univers 09:07:59 23:59:00 Encounter Andrew Jayden LOBITO [id number] ity of [place] [id number] [facility] [id number] [facility] [address] 2021-12-28 2021-12-28 [facility] [id number] Univers 09:51:42 23:59:00 Encounter Erlin ROBIN [id number] ity of [place] [id number] [facility] [id number] [facility] [address] 2021-12-28 2021-12-28 [facility] [id number] Univers 08:13:17 09:50:00 Encounter Andrew Jayden ROBIN [id number] [facility] 4.2.7.2.686 [facility] [id number] [facility] [address] 2021-12-28 2021-12-28 Outpatient Mercy OVIEDO, [facility] [id number] Univers 00:00:00 09:50:[address] [facility] 2021-12-28 2021-12-28 Orders Doctor JAYY [id number] Univers 00:00:00 00:00:00 Only Unassigned, FIDE [id number] ity of [place] [facility] [id number] [facility] [id number] [facility] [address] 2019-09-23 2019-09-23 Outpatient Toribio Rooneyt [id number] Common 15:09:00 15:09:[address] [facility] 2019-09-09 2019-09-09 [facility] [id number] Common 11:30:00 11:30:[address] [facility] 2019-08-05 2019-08-05 [facility] [id number] Common 14:57:00 14:57:[address] [facility] 2019-08-02 2019-08-02 [facility] [id number] Common 14:24:00 14:24:[address] [facility] 2019-07-26 2019-07-26 [facility] [id number] Common 13:14:00 13:14:[address] [facility] 2019-07-20 2019-07-20 [facility] [id number] Common 09:08:00 09:08:[address] [facility] 2019-07-14 2019-07-14 [facility] [id number] Common 15:20:00 15:20:[address] [facility] 2019-06-24 2019-06-24 [facility] [id number] Common 11:00:00 11:00:[address] [facility] 2019-06-01 2019-06-01 [facility] [id number] Common 12:18:00 12:18:[address] [facility] 2019-05-31 2019-05-31 [facility] [id number] Common 14:36:00 14:36:[address] [facility] 2019-05-27 2019-05-27 [facility] [id number] Common 10:30:00 10:30:[address] [facility] 2019-04-12 2019-04-12 [facility] [id number] Common 14:45:00 14:45:[address] [facility] 2019-03-22 2019-03-22 [facility] [id number] Common 10:30:00 10:30:[address] [facility] 2019-03-08 2019-03-08 [facility] [id number] Common 14:45:00 14:45:[address] [facility] 2019-03-02 2019-03-02 [facility] [id number] Common 10:30:00 10:30:[address] [facility] 2018-12-28 2018-12-28 [facility] [id number] Common 15:15:00 15:15:[address] [facility] 2018-12-10 2018-12-10 [facility] [id number] Common 14:52:00 14:52:[address] [facility] 2018-11-19 2018-11-19 [facility] [id number] Common 11:30:00 11:30:[address] [facility] [address] [facility] 2018-10-22 2018-10-22 [facility] [id number] Common 11:45:00 11:45:[address] [facility] [address] [facility] 2018-09-18 2018-09-18 [facility] [id number] Common 11:48:00 11:48:[address] [facility] [address] [facility] 2018-09-16 2018-09-16 [facility] [id number] Common 15:42:00 15:42:[address] [facility] [address] [facility] 2017 2017-06-10 Inpatient [facility]Flavo [facility] [id number] Memoria 10:29:00 22:37:00 [facility] 2017 2017-06-10 Inpatient nullFlavo [facility] [id number] Memoria 10:29:00 22:37:00 [facility] 2017 2017-06-10 Outpatient Katherine, [facility] [id number] 05:29:00 17:37:00 Giancarlo Jade 2016-12-02 2017-01-01 Wound Care [facility]Flavo [facility] [id number] Memoria 18:13:00 04:59:00 [facility] 2016-12-02 2017-01-01 Wound Care nullFlavo [facility] [id number] Memoria 18:13:00 04:59:00 [facility] 2016-12-02 2016-12-31 Outpatient Blank, [facility] [id number] 13:13:00 23:59:00 Farhad Johnson 2016-10-02 2016-11-01 Wound Care [facility]Flavo [facility] [id number] Memoria 16:00:00 05:59:00 [facility] 2016-10-02 2016-11-01 Wound Care nullFlavo [facility] [id number] Memoria 16:00:00 05:59:00 r [facility] 05 l [facility] 2016-10-02 2016-10-31 Outpatient Blank, [facility] [id number] 10:00:00 23:59:00 Farhad Jade 2016-07-28 2016-07-30 Inpatient [facility]Flavo [facility] [id number] Memoria 02:46:00 20:34:00 r [facility] 04 l [facility] 2016-07-28 2016-07-30 Inpatient nullFlavo [facility] [id number] Memoria 02:46:00 20:34:00 [facility] 04 l [facility] 2016-07-27 2016-07-30 Outpatient Dionte, [facility] [id number] 20:46:00 14:34:00 Shaylaignaciomilana Keane Haydee 2016-05-07 2016-06-06 Wound Care [facility]Flavo [facility] [id number] Memoria 18:08:00 04:59:00 [facility] 04 l [facility] 2016-05-07 2016-06-06 Wound Care nullFlavo [facility] [id number] Memoria 18:08:00 04:59:00 r [facility] 04 l [facility] 2016-05-07 2016-06-05 Outpatient Blank, [facility] [id number] 13:08:00 23:59:00 Farhad Hubbard 2016-05-30 2016-05-30 Emergency [facility]Flavo [facility] [id number] Memoria 14:35:00 18:49:00 r [facility] 03 l [facility] 2016-05-30 2016-05-30 Emergency nullFlavo [facility] [id number] Memoria 14:35:00 18:49:00 r [facility] 03 l [facility] 2016-05-30 2016-05-30 Outpatient Demarcus, [facility] [id number] 09:35:00 13:49:00 Ant Moran 2016-02-06 2016-03-07 Wound Care [facility]Flavo [facility] [id number] Memoria 18:04:00 04:59:00 r [facility] 03 l [facility] 2016-02-06 2016-03-07 Wound Care nullFlavo [facility] [id number] Memoria 18:04:00 04:59:00 [facility] Moran l [facility] 2016-02-06 2016-03-06 Outpatient Blank, [facility] [id number] 13:04:00 23:59:00 Farhad Genao 2015-12-12 2016-01-11 Wound Care [facility]Flavo [facility] [id number] Memoria 18:29:00 04:59:00 r [facility]z 02 l [facility] 2015-12-12 2016-01-11 Wound Care nullFlavo [facility] [id number] Memoria 18:29:00 04:59:00 r [facility] 02 l [facility] 2015-12-12 2016-01-10 Outpatient Blank, [facility] [id number] 13:29:00 23:59:00 Farhad Genao 2015-10-24 2015-11-23 Wound Care [facility]Flavo [facility] [id number] Memoria 19:00:00 04:59:00 r [facility] 01 l [facility] 2015-10-24 2015-11-23 Wound Care nullFlavo [facility] 4525 [id number] Memoria 19:00:00 04:59:00 [facility] 01 [facility] 2015-10-24 2015-11-22 Outpatient Blank, [facility] [id number] 13:00:00 23:59:00 Farhad Genao 2015-09-11 2015-10-11 Wound Care nullFlavo [facility] 4525 [id number] Memoria 15:27:00 05:59:00 r G[facility]z 00 l [facility] 2015-09-11 2015-10-11 Wound Care nullFlavo [facility] [id number] Memoria 15:27:00 05:59:00 r [facility] 00 l [facility] 2015-09-11 2015-10-10 Outpatient Blank, [facility] [id number] 09:27:00 23:59:00 Farhad Genao 2015-09-15 2015-09-16 Outpt Diag nullFlavo [facility] [id number] Memoria 17:54:00 05:59:00 Services r Outpatient 00 l [facility] 2015-09-15 2015-09-16 Outpt Diag nullFlavo [facility] [id number] Memoria 17:54:00 05:59:00 Services r Outpatient 00 l [facility] 2015-09-15 2015-09-15 Outpatient Blank, [place] [address] [id number] 11:54:00 23:59:00 Farhad F 00 2015-02-17 2015-02-19 Inpatient [facility] [id number] Memoria 14:32:00 17:39:00 [facility] 02 [facility] 2015-02-17 2015-02-19 Inpatient [facility] [id number] Memoria 14:32:00 17:39:00 [facility] 02 [facility] 2015-02-17 2015-02-19 Outpatient Pavithrajavierjo ann, [id number]. [id number]. [id number] 09:32:00 12:39:00 Lloyd [id number] 4301-10-08 2014-06-11 Inpatient [facility] [id number] Memoria 23:44:00 19:30:00 [facility] 01 [facility] 2014-06-08 2014-06-11 Inpatient [facility] [id number] Memoria 23:44:00 19:30:00 r [facility] 01 [facility] 2014-06-08 2014-06-11 Outpatient Ferny-Thomas [id number] 18:44:00 14:30:00 , Negro [id number] 01 Results Test Description Test Time Test Comments Results Result Comments Source CHEM PANEL 2017-06-09 10:26:00 Test Item Value Reference Range Interpretation Comme nts eGFR (test code = eGFR) 83 [facility]2017-10-09 10:26:00 Test Item Value Reference Range Interpretation Comments Calcium Lvl (test code = Calcium Lvl) 9.0 8.5-10.5 [facility] AUSNP7550-97-40 10:26:00 Test Item Value Reference Range Interpretation Comments AGAP (test code = AGAP) 8.0 10.0-20.0 [facility]2017-10-09 10:26:00 Test Item Value Reference Range Interpretation Comments Creatinine Lvl (test code = Creatinine 0.91 0.50-1.40 Lvl) [facility]2017-10-09 10:26:00 Test Item Value Reference Range Interpretation Comments Chloride Lvl (test code = Chloride Lvl) 96 95-109 [facility]2017-10-09 10:26:00 Test Item Value Reference Range Interpretation Comments CO2 (test code = CO2) 37 24-32 [facility]2017-10-09 10:26:00 Test Item Value Reference Range Interpretation Comments Sodium Lvl (test code = Sodium Lvl) 137 135-145 [facility]2017-10-09 10:26:00 Test Item Value Reference Range Interpretation Comments Glucose Lvl (test code = Glucose Lvl) 132 70-99 [facility]2017-10-09 10:26:00 Test Item Value Reference Range Interpretation Comments BUN (test code = BUN) 12 7-22 [facility]2017-10-09 10:26:00 Test Item Value Reference Range Interpretation Comments Potassium Lvl (test code = Potassium 4.0 3.5-5.1 Lvl) [facility]exzkvsOBMQJFKDNA4729-11-54 10:26:00 Test Item Value Reference Range Interpretation Comments Basophils (test code = 0.9 See_Comment [Aut omated message] The Basophils) system which ge nerated this result tra nsmitted reference range : <=1.0. The reference r jose alfredo was not used to int erpret this result as normal/abnormal . [facility] HospitalPphvcuhCFJXYAYYMY7726-88-49 10:26:00 Test Item Value Reference Range Interpretation Comments Segs-Bands # (test code = Segs-Bands #) 5.6 1.5-8.1 [facility] HospitalBpihgnrIYZMBBCZQC1438-01-04 10:26:00 Test Item Value Reference Range Interpretation Comments Monocytes # (test code 1.2 See_Comment [Aut omated message] The = Monocytes #) system which generated this result tra nsmitted reference range : <=0.8. The reference r jose alfredo was not used to int erpret this result as normal/abnormal . [facility] HospitalAwielmaBFJSXZHQJF0564-70-84 10:26:00 Test Item Value Reference Range Interpretation Comments Lymphocytes # (test code = Lymphocytes 1.2 1.0-5.5 #) [facility] HospitalPykcaecUONZZFRWCI9154-74-11 10:26:00 Test Item Value Reference Range Interpretation Comments Basophils # (test code 0.1 See_Comment [Aut omated message] The = Basophils #) system which generated this result tra nsmitted reference range : <=0.2. The reference r jose alfredo was not used to int erpret this result as normal/abnormal . [facility] HospitalSvqejvfZDUPGGRCLD7706-03-72 10:26:00 Test Item Value Reference Range Interpretation Comments Eosinophils # (test code 0.2 See_Comment [A utomated message] The = Eosinophils #) system whic h generated this result tra nsmitted reference range : <=0.5. The reference r jose alfredo was not used to int erpret this result as normal/abnormal . [facility] HospitalWwvinbuFJRSZABPXZ8312-11-70 10:26:00 Test Item Value Reference Range Interpretation Comments Eosinophils (test code = 2.0 See_Comment [A utomated message] The Eosinophils) system which ge nerated this result tra nsmitted reference range : <=4.0. The reference r jose alfredo was not used to int erpret this result as normal/abnormal . [facility] HospitalLgaaerqQPMHRJPOEG7863-27-48 10:26:00 Test Item Value Reference Range Interpretation Comments Monocytes (test code = Monocytes) 14.8 2.0-12.0 [facility] HospitalTfumgvnIHQSOAWDER3567-03-10 10:26:00 Test Item Value Reference Range Interpretation Comments Lymphocytes (test code = Lymphocytes) 14.9 20.0-40.0 [facility] HospitalKwqbfgqZVIGCXDGGJ5924-26-21 10:26:00 Test Item Value Reference Range Interpretation Comments Segs (test code = Segs) 67.4 45.0-75.0 [facility] HospitalXcqhlboGQQEOESFSR0554-73-39 10:26:00 Test Item Value Reference Range Interpretation Comments RDW (test code = RDW) 14.4 11.5-14.5 [facility] HospitalFtjankrQGBSZBDPLH0826-29-41 10:26:00 Test Item Value Reference Range Interpretation Comments Platelet (test code = Platelet) 324 133-450 [facility] HospitalAnundawZYFMMHUEIO8007-20-11 10:26:00 Test Item Value Reference Range Interpretation Comments MPV (test code = MPV) 8.9 7.4-10.4 [facility] HospitalIflqzcbJDKVNTYTOQ6223-65-32 10:26:00 Test Item Value Reference Range Interpretation Comments MCHC (test code = MCHC) 33.7 32.0-36.0 [facility] HospitalYdvsridMUQXTLYULX5694-43-10 10:26:00 Test Item Value Reference Range Interpretation Comments RBC (test code = RBC) 3.48 4.70-6.10 [facility] HospitalMdbgltbHONWJWZJYG9809-26-73 10:26:00 Test Item Value Reference Range Interpretation Comments Hgb (test code = Hgb) 10.5 14.0-18.0 [facility] HospitalBdhfjayFUPWZFDGXV5183-39-47 10:26:00 Test Item Value Reference Range Interpretation Comments MCV (test code = MCV) 89.8 80.0-94.0 [facility] HospitalXpuhmphZNFEXMRZYQ4895-14-08 10:26:00 Test Item Value Reference Range Interpretation Comments Hct (test code = Hct) 31.2 42.0-54.0 [facility] HospitalBoqrxzbPHEQIUBKWA1494-89-95 10:26:00 Test Item Value Reference Range Interpretation Comments MCH (test code = MCH) 30.2 pg 27.0-31.0 [facility] HospitalIjwmvwtGPIRHRTGPB0294-10-16 10:26:00 Test Item Value Reference Range Interpretation Comments WBC (test code = WBC) 8.4 3.7-10.4 [facility]2017-10-09 10:26:00 Test Item Value Reference Range Interpretation Comments eGFR (test code = eGFR) 83 [facility]2017-10-09 10:26:00 Test Item Value Reference Range Interpretation Comments Calcium Lvl (test code = Calcium Lvl) 9.0 8.5-10.5 [facility]2017-10-09 10:26:00 Test Item Value Reference Range Interpretation Comments AGAP (test code = AGAP) 8.0 10.0-20.0 [facility]2017-10-09 10:26:00 Test Item Value Reference Range Interpretation Comments Creatinine Lvl (test code = Creatinine 0.91 0.50-1.40 Lvl) [facility]2017-10-09 10:26:00 Test Item Value Reference Range Interpretation Comments Chloride Lvl (test code = Chloride Lvl) 96 95-109 [facility]2017-10-09 10:26:00 Test Item Value Reference Range Interpretation Comments CO2 (test code = CO2) 37 24-32 [facility]2017-10-09 10:26:00 Test Item Value Reference Range Interpretation Comments Sodium Lvl (test code = Sodium Lvl) 137 135-145 [facility]2017-10-09 10:26:00 Test Item Value Reference Range Interpretation Comments Glucose Lvl (test code = Glucose Lvl) 132 70-99 [facility]2017-10-09 10:26:00 Test Item Value Reference Range Interpretation Comments BUN (test code = BUN) 12 7-22 [facility]2017-10-09 10:26:00 Test Item Value Reference Range Interpretation Comments Potassium Lvl (test code = Potassium 4.0 3.5-5.1 Lvl) [facility] HospitalRklvdwrJOIHFDTOLX7676-49-51 10:26:00 Test Item Value Reference Range Interpretation Comments Basophils (test code = 0.9 See_Comment [Aut omated message] The Basophils) system which ge nerated this result tra nsmitted reference range : <=1.0. The reference r jose alfredo was not used to int erpret this result as normal/abnormal . [facility] HospitalTaivzmcXTVIBUGEHI7267-20-17 10:26:00 Test Item Value Reference Range Interpretation Comments Segs-Bands # (test code = Segs-Bands #) 5.6 1.5-8.1 [facility] HospitalHeqreczRDCEGXWHSA1085-87-19 10:26:00 Test Item Value Reference Range Interpretation Comments Monocytes # (test code 1.2 See_Comment [Aut omated message] The = Monocytes #) system which generated this result tra nsmitted reference range : <=0.8. The reference r jose alfredo was not used to int erpret this result as normal/abnormal . [facility] HospitalLiryvvzBCRRYQNQSP0823-88-15 10:26:00 Test Item Value Reference Range Interpretation Comments Lymphocytes # (test code = Lymphocytes 1.2 1.0-5.5 #) [facility] HospitalMlvemdwHWVGRTSIWB7734-89-97 10:26:00 Test Item Value Reference Range Interpretation Comments Basophils # (test code 0.1 See_Comment [Aut omated message] The = Basophils #) system which generated this result tra nsmitted reference range : <=0.2. The reference r jose alfredo was not used to int erpret this result as normal/abnormal . [facility] HospitalUivzelyKOSYUAHQFS0423-18-31 10:26:00 Test Item Value Reference Range Interpretation Comments Eosinophils # (test code 0.2 See_Comment [A utomated message] The = Eosinophils #) system whic h generated this result tra nsmitted reference range : <=0.5. The reference r jose alfredo was not used to int erpret this result as normal/abnormal . [facility] HospitalVpaktixKCPKDFHSST1142-38-42 10:26:00 Test Item Value Reference Range Interpretation Comments Eosinophils (test code = 2.0 See_Comment [A utomated message] The Eosinophils) system which ge nerated this result tra nsmitted reference range : <=4.0. The reference r jose alfredo was not used to int erpret this result as normal/abnormal . [facility] HospitalVlxmxheJCKAZJFTNT9307-25-89 10:26:00 Test Item Value Reference Range Interpretation Comments Monocytes (test code = Monocytes) 14.8 2.0-12.0 [facility] HospitalFfwawxlBZLTZFJDKH2308-27-70 10:26:00 Test Item Value Reference Range Interpretation Comments Lymphocytes (test code = Lymphocytes) 14.9 20.0-40.0 [facility] HospitalBywearlOJPSHHFKHF0909-72-82 10:26:00 Test Item Value Reference Range Interpretation Comments Segs (test code = Segs) 67.4 45.0-75.0 [facility] HospitalNgmgzymVMKRYNYOUH9400-67-27 10:26:00 Test Item Value Reference Range Interpretation Comments RDW (test code = RDW) 14.4 11.5-14.5 [facility] HospitalClrrhonOHOIYSKYWF3249-62-82 10:26:00 Test Item Value Reference Range Interpretation Comments Platelet (test code = Platelet) 324 133-450 [facility] HospitalRmwparqTMDXMVDICD9809-65-04 10:26:00 Test Item Value Reference Range Interpretation Comments MPV (test code = MPV) 8.9 7.4-10.4 [facility] HospitalQgrzoszRZRJAKXEGV0936-36-97 10:26:00 Test Item Value Reference Range Interpretation Comments MCHC (test code = MCHC) 33.7 32.0-36.0 [facility] HospitalEyyqzjsXKEZMINJJF6171-97-80 10:26:00 Test Item Value Reference Range Interpretation Comments RBC (test code = RBC) 3.48 4.70-6.10 [facility] HospitalHcbqpltVXPRRCYCNA4367-15-89 10:26:00 Test Item Value Reference Range Interpretation Comments Hgb (test code = Hgb) 10.5 14.0-18.0 [facility] HospitalQpajbguHACYJSEGZX3758-43-43 10:26:00 Test Item Value Reference Range Interpretation Comments MCV (test code = MCV) 89.8 80.0-94.0 [facility] HospitalKkpgamfIYFAQJQAYP8184-95-59 10:26:00 Test Item Value Reference Range Interpretation Comments Hct (test code = Hct) 31.2 42.0-54.0 [facility] HospitalVskhgbhPTKHMLZGSJ6897-82-81 10:26:00 Test Item Value Reference Range Interpretation Comments MCH (test code = MCH) 30.2 pg 27.0-31.0 [facility] [facility]TVN9687-55-59 10:26:00 Test Item Value Reference Range Interpretation Comments WBC (test code = WBC) 8.4 3.7-10.4 [facility]2017-10-09 10:26:00 Test Item Value Reference Range Interpretation Comments eGFR (test code = eGFR) 83 [facility]2017-10-09 10:26:00 Test Item Value Reference Range Interpretation Comments Calcium Lvl (test code = Calcium Lvl) 9.0 8.5-10.5 [facility]2017-10-09 10:26:00 Test Item Value Reference Range Interpretation Comments AGAP (test code = AGAP) 8.0 10.0-20.0 [facility]2017-10-09 10:26:00 Test Item Value Reference Range Interpretation Comments Creatinine Lvl (test code = Creatinine 0.91 0.50-1.40 Lvl) [facility]2017-10-09 10:26:00 Test Item Value Reference Range Interpretation Comments Chloride Lvl (test code = Chloride Lvl) 96 95-109 [facility]2017-10-09 10:26:00 Test Item Value Reference Range Interpretation Comments CO2 (test code = CO2) 37 24-32 [facility]2017-10-09 10:26:00 Test Item Value Reference Range Interpretation Comments Sodium Lvl (test code = Sodium Lvl) 137 135-145 [facility]2017-10-09 10:26:00 Test Item Value Reference Range Interpretation Comments Glucose Lvl (test code = Glucose Lvl) 132 70-99 [facility]2017-10-09 10:26:00 Test Item Value Reference Range Interpretation Comments BUN (test code = BUN) 12 7-22 [facility]2017-10-09 10:26:00 Test Item Value Reference Range Interpretation Comments Potassium Lvl (test code = Potassium 4.0 3.5-5.1 Lvl) [facility]PxiowlpHSSHYTQSCJ1669-03-20 10:26:00 Test Item Value Reference Range Interpretation Comments Basophils (test code = 0.9 See_Comment [Aut omated message] The Basophils) system which ge nerated this result tra nsmitted reference range : <=1.0. The reference r jose alfredo was not used to int erpret this result as normal/abnormal . [facility] HospitalXmfibmrVUVAQWNSRF6498-70-46 10:26:00 Test Item Value Reference Range Interpretation Comments Segs-Bands # (test code = Segs-Bands #) 5.6 1.5-8.1 [facility] HospitalDadinphXXPTTBXZOI0772-42-48 10:26:00 Test Item Value Reference Range Interpretation Comments Monocytes # (test code 1.2 See_Comment [Aut omated message] The = Monocytes #) system which generated this result tra nsmitted reference range : <=0.8. The reference r jose alfredo was not used to int erpret this result as normal/abnormal . [facility] HospitalFzupxacVJQYDUNNPD8367-34-08 10:26:00 Test Item Value Reference Range Interpretation Comments Lymphocytes # (test code = Lymphocytes 1.2 1.0-5.5 #) [facility] HospitalZdckrnlGDDDJCSUML5329-00-74 10:26:00 Test Item Value Reference Range Interpretation Comments Basophils # (test code 0.1 See_Comment [Aut omated message] The = Basophils #) system which generated this result tra nsmitted reference range : <=0.2. The reference r jose alfredo was not used to int erpret this result as normal/abnormal . [facility] HospitalUunecxyMUSYPTKOVH1268-30-62 10:26:00 Test Item Value Reference Range Interpretation Comments Eosinophils # (test code 0.2 See_Comment [A utomated message] The = Eosinophils #) system whic h generated this result tra nsmitted reference range : <=0.5. The reference r jose alfredo was not used to int erpret this result as normal/abnormal . [facility] HospitalUjpliqaOHMSBKWYSP3601-78-40 10:26:00 Test Item Value Reference Range Interpretation Comments Eosinophils (test code = 2.0 See_Comment [A utomated message] The Eosinophils) system which ge nerated this result tra nsmitted reference range : <=4.0. The reference r jose alfredo was not used to int erpret this result as normal/abnormal . [facility] HospitalDwifwfjIPIJSAWVVA7680-17-75 10:26:00 Test Item Value Reference Range Interpretation Comments Monocytes (test code = Monocytes) 14.8 2.0-12.0 [facility] HospitalJamkmngLRRKETCDHF6658-59-93 10:26:00 Test Item Value Reference Range Interpretation Comments Lymphocytes (test code = Lymphocytes) 14.9 20.0-40.0 [facility] HospitalAaytxlsBWQUOGJYKE6738-62-91 10:26:00 Test Item Value Reference Range Interpretation Comments Segs (test code = Segs) 67.4 45.0-75.0 [facility] HospitalMythgzkSOFWLXVOWV6514-42-22 10:26:00 Test Item Value Reference Range Interpretation Comments RDW (test code = RDW) 14.4 11.5-14.5 [facility] HospitalDnjdhoaZKATYEXGWE4190-76-78 10:26:00 Test Item Value Reference Range Interpretation Comments Platelet (test code = Platelet) 324 133-450 [facility] HospitalHubkuzaACBZMKSYMU6348-97-56 10:26:00 Test Item Value Reference Range Interpretation Comments MPV (test code = MPV) 8.9 7.4-10.4 [facility] HospitalWidiaaeJZTYVYJWPJ1737-38-50 10:26:00 Test Item Value Reference Range Interpretation Comments MCHC (test code = MCHC) 33.7 32.0-36.0 [facility] HospitalHslayxsTZRXLFICGV6598-91-61 10:26:00 Test Item Value Reference Range Interpretation Comments RBC (test code = RBC) 3.48 4.70-6.10 [facility] HospitalEyuwvqyOWKRAVFBAK5738-39-96 10:26:00 Test Item Value Reference Range Interpretation Comments Hgb (test code = Hgb) 10.5 14.0-18.0 [facility] HospitalJbrpalyBMMRRXEHST8161-24-57 10:26:00 Test Item Value Reference Range Interpretation Comments MCV (test code = MCV) 89.8 80.0-94.0 [facility] HospitalYjtunqjBENTOTHOZW3819-83-63 10:26:00 Test Item Value Reference Range Interpretation Comments Hct (test code = Hct) 31.2 42.0-54.0 [facility] HospitalXyhoopiUYXPZODNWB8637-61-02 10:26:00 Test Item Value Reference Range Interpretation Comments MCH (test code = MCH) 30.2 pg 27.0-31.0 [facility] HospitalTsuazomZSYDXFAIAV5555-38-10 10:26:00 Test Item Value Reference Range Interpretation Comments WBC (test code = WBC) 8.4 3.7-10.4 [facility] HospitalAuqnlhwKLGPBKBJHKOR9469-98-44 09:36:00 Test Item Value Reference Range Interpretation Comments AGAP (test code = AGAP) 6.7 10.0-20.0 [facility] HospitalZjbjjqbVLPYQZZUKLDD1622-59-42 09:36:00 Test Item Value Reference Range Interpretation Comments B/C Ratio (test code = B/C Ratio) 17 6-25 [facility] HospitalCbboeakPIWMXZUXWETQ9877-50-73 09:36:00 Test Item Value Reference Range Interpretation Comments Globulin (test code = Globulin) 3.5 2.7-4.2 [facility] HospitalPsuqkbqYVTEKISRJBCG9526-68-26 09:36:00 Test Item Value Reference Range Interpretation Comments A/G Ratio (test code = A/G Ratio) 0.5 0.7-1.6 [facility] HospitalBmvfzpgCMUHSNBEZFXJ2002-94-93 09:36:00 Test Item Value Reference Range Interpretation Comments eGFR (test code = eGFR) 85 [facility] HospitalSgxjlyoETOFYIIYHXID9345-43-96 09:36:00 Test Item Value Reference Range Interpretation Comments Total Protein (test code = Total 5.2 6.4-8.4 Protein) [facility] HospitalHucsxhpWVQDQPPFNFSG5518-59-14 09:36:00 Test Item Value Reference Range Interpretation Comments Albumin Lvl (test code = Albumin Lvl) 1.7 3.5-5.0 [facility] HospitalLnwugaaDDDGXTNIEMUJ4568-73-84 09:36:00 Test Item Value Reference Range Interpretation Comments ALT (test code = ALT) 18 See_Comment [Auto mated message] The system which ge nerated this result transmit stuart reference range : <=65. The reference range was not used to interpr et this result as cherry l/abnormal. [facility] HospitalCmldbinEUIKHKBFMQQR0690-89-63 09:36:00 Test Item Value Reference Range Interpretation Comments CO2 (test code = CO2) 36 24-32 [facility] HospitalDkklajcXNXKRSYNBDLZ2578-85-53 09:36:00 Test Item Value Reference Range Interpretation Comments Calcium Lvl (test code = Calcium Lvl) 9.1 8.5-10.5 [facility] HospitalMmkrirfHACLCHKGXRRB7223-84-43 09:36:00 Test Item Value Reference Range Interpretation Comments AST (test code = AST) 16 See_Comment [Auto mated message] The system which ge nerated this result transmit stuart reference range : <=37. The reference range was not used to interpr et this result as cherry l/abnormal. [facility] HospitalGagrmsaNBJALYUNFAAH5507-84-08 09:36:00 Test Item Value Reference Range Interpretation Comments Alk Phos (test code = Alk Phos) 38 39-136 [facility] HospitalMjiemguBWPLCSILRBXC2394-12-27 09:36:00 Test Item Value Reference Range Interpretation Comments Bili Total (test code = Bili Total) 0.3 0.2-1.3 [facility] HospitalHbprxzyQZMALEGPBSHO1547-21-19 09:36:00 Test Item Value Reference Range Interpretation Comments Creatinine Lvl (test code = Creatinine 0.88 0.50-1.40 Lvl) [facility] HospitalNufpdadNMBBCOFUDRSD8905-36-13 09:36:00 Test Item Value Reference Range Interpretation Comments Sodium Lvl (test code = Sodium Lvl) 136 135-145 [facility] HospitalZkwfdwzEMUXHVHGTFBR2514-77-52 09:36:00 Test Item Value Reference Range Interpretation Comments Potassium Lvl (test code = Potassium 3.7 3.5-5.1 Lvl) [facility] HospitalSltufbaZERVHLJZGIBV4364-93-87 09:36:00 Test Item Value Reference Range Interpretation Comments Chloride Lvl (test code = Chloride Lvl) 97 95-109 [facility] HospitalXuvcgxeCLBCYEBGLREF8259-02-30 09:36:00 Test Item Value Reference Range Interpretation Comments BUN (test code = BUN) 15 7-22 [facility] HospitalWstrmkzIJXRHCKXICUU5941-18-53 09:36:00 Test Item Value Reference Range Interpretation Comments Glucose Lvl (test code = Glucose Lvl) 135 70-99 [facility] HospitalEmkkkcfMBLBKBJRSE8798-00-05 09:36:00 Test Item Value Reference Range Interpretation Comments Platelet (test code = Platelet) 327 133-450 [facility] HospitalXlznjhrGUFGNQZXYK0185-50-24 09:36:00 Test Item Value Reference Range Interpretation Comments MPV (test code = MPV) 8.6 7.4-10.4 [facility] HospitalJzobohfZQWTQJDVTX2786-20-11 09:36:00 Test Item Value Reference Range Interpretation Comments Hct (test code = Hct) 30.7 42.0-54.0 [facility] HospitalWqeyczvTCENQTBYTQ9466-06-38 09:36:00 Test Item Value Reference Range Interpretation Comments MCV (test code = MCV) 88.8 80.0-94.0 [facility] HospitalIssrrrnZSAHJYRSRZ3537-36-13 09:36:00 Test Item Value Reference Range Interpretation Comments RBC (test code = RBC) 3.46 4.70-6.10 [facility] HospitalOdxascjUGXTSKZKCH8079-53-04 09:36:00 Test Item Value Reference Range Interpretation Comments Hgb (test code = Hgb) 10.4 14.0-18.0 [facility] HospitalRwvcjluFCYHOPOUFW1377-72-16 09:36:00 Test Item Value Reference Range Interpretation Comments RDW (test code = RDW) 14.2 11.5-14.5 [facility] HospitalLvyayseIDSJIPZUAY6529-78-33 09:36:00 Test Item Value Reference Range Interpretation Comments MCHC (test code = MCHC) 33.8 32.0-36.0 [facility] HospitalWknqxvpPKJMMIAZCQ0591-30-93 09:36:00 Test Item Value Reference Range Interpretation Comments MCH (test code = MCH) 30.0 pg 27.0-31.0 [facility] HospitalEhalxkbIIJTBRZPLH4384-03-66 09:36:00 Test Item Value Reference Range Interpretation Comments WBC (test code = WBC) 11.4 3.7-10.4 [facility] HospitalVtbdrufCSCMHXDWAZ0761-59-32 09:36:00 Test Item Value Reference Range Interpretation Comments Monocytes # (test code 1.5 See_Comment [Aut omated message] The = Monocytes #) system which generated this result tra nsmitted reference range : <=0.8. The reference r jose alfredo was not used to int erpret this result as normal/abnormal . [facility] HospitalIvvqlkeMPLYCMDEUZ9010-79-51 09:36:00 Test Item Value Reference Range Interpretation Comments Eosinophils # (test code 0.2 See_Comment [A utomated message] The = Eosinophils #) system whic h generated this result tra nsmitted reference range : <=0.5. The reference r jose alfredo was not used to int erpret this result as normal/abnormal . [facility] HospitalDxmvrsyMOTTMHGIOA0755-34-69 09:36:00 Test Item Value Reference Range Interpretation Comments Lymphocytes # (test code = Lymphocytes 1.3 1.0-5.5 #) [facility] HospitalSneoiowGUSGKJMOMI0522-54-03 09:36:00 Test Item Value Reference Range Interpretation Comments Segs-Bands # (test code = Segs-Bands #) 8.3 1.5-8.1 [facility] HospitalMkdpnnmUCMSDKVBYM7296-91-89 09:36:00 Test Item Value Reference Range Interpretation Comments Eosinophils (test code = 2.0 See_Comment [A utomated message] The Eosinophils) system which ge nerated this result tra nsmitted reference range : <=4.0. The reference r jose alfredo was not used to int erpret this result as normal/abnormal . [facility] HospitalYjbklkoKHPYKETJNO0984-13-54 09:36:00 Test Item Value Reference Range Interpretation Comments Monocytes (test code = Monocytes) 13.2 2.0-12.0 [facility] HospitalQpdxdylSRNNLVEZOR1689-28-97 09:36:00 Test Item Value Reference Range Interpretation Comments Lymphocytes (test code = Lymphocytes) 11.1 20.0-40.0 [facility] HospitalDmfklriZEHAQUGCQI6262-31-20 09:36:00 Test Item Value Reference Range Interpretation Comments Segs (test code = Segs) 73.2 45.0-75.0 [facility] HospitalBqvqduwFMAFHXKHLK1040-95-04 09:36:00 Test Item Value Reference Range Interpretation Comments Basophils # (test code 0.1 See_Comment [Aut omated message] The = Basophils #) system which generated this result tra nsmitted reference range : <=0.2. The reference r jose alfredo was not used to int erpret this result as normal/abnormal . [facility] HospitalPsaxuuxWJFFBBHMCT1580-88-25 09:36:00 Test Item Value Reference Range Interpretation Comments Basophils (test code = 0.5 See_Comment [Aut omated message] The Basophils) system which ge nerated this result tra nsmitted reference range : <=1.0. The reference r jose alfredo was not used to int erpret this result as normal/abnormal . [facility] HospitalJfzpxlsBLXVWTYFKOWG8018-58-42 09:36:00 Test Item Value Reference Range Interpretation Comments AGAP (test code = AGAP) 6.7 10.0-20.0 [facility] HospitalEtzfdwxPBPPVRGNIKHS1781-18-85 09:36:00 Test Item Value Reference Range Interpretation Comments B/C Ratio (test code = B/C Ratio) 17 6-25 [facility] HospitalXkrhicxCVDFPGWCPTHC4931-27-57 09:36:00 Test Item Value Reference Range Interpretation Comments Globulin (test code = Globulin) 3.5 2.7-4.2 [facility] HospitalVkoltnmFMAWTPQZLUJI8098-27-57 09:36:00 Test Item Value Reference Range Interpretation Comments A/G Ratio (test code = A/G Ratio) 0.5 0.7-1.6 [facility] HospitalRfuycppOIMVOWEKBPVX3619-77-03 09:36:00 Test Item Value Reference Range Interpretation Comments eGFR (test code = eGFR) 85 [facility] HospitalYfifeaiDSNNYPVTFIHT5544-38-76 09:36:00 Test Item Value Reference Range Interpretation Comments Total Protein (test code = Total 5.2 6.4-8.4 Protein) [facility] HospitalBadxtwzVOFVCUMIHXIQ6417-55-35 09:36:00 Test Item Value Reference Range Interpretation Comments Albumin Lvl (test code = Albumin Lvl) 1.7 3.5-5.0 [facility] HospitalSbdqebkPWFKRTWPANMN2462-82-02 09:36:00 Test Item Value Reference Range Interpretation Comments ALT (test code = ALT) 18 See_Comment [Auto mated message] The system which ge nerated this result transmit stuart reference range : <=65. The reference range was not used to interpr et this result as cherry l/abnormal. [facility] HospitalOikudmuLSWVALOXLDCU1201-84-74 09:36:00 Test Item Value Reference Range Interpretation Comments CO2 (test code = CO2) 36 24-32 [facility] HospitalKqhqzsaDUMQASFPUGVC0431-79-62 09:36:00 Test Item Value Reference Range Interpretation Comments Calcium Lvl (test code = Calcium Lvl) 9.1 8.5-10.5 [facility] HospitalHnuvqzsLQRQGKZXNILB4988-77-86 09:36:00 Test Item Value Reference Range Interpretation Comments AST (test code = AST) 16 See_Comment [Auto mated message] The system which ge nerated this result transmit stuart reference range : <=37. The reference range was not used to interpr et this result as cherry l/abnormal. [facility] HospitalSuzuoaqAILELDNWAZJJ3375-15-62 09:36:00 Test Item Value Reference Range Interpretation Comments Alk Phos (test code = Alk Phos) 38 39-136 [facility] HospitalDvjftstRBDICCCRYUDL5825-58-42 09:36:00 Test Item Value Reference Range Interpretation Comments Bili Total (test code = Bili Total) 0.3 0.2-1.3 [facility] HospitalHwncvhcPSXPRUMOZFIZ4653-41-61 09:36:00 Test Item Value Reference Range Interpretation Comments Creatinine Lvl (test code = Creatinine 0.88 0.50-1.40 Lvl) [facility] HospitalZuekfekNPMGDNAOQIHM5373-53-04 09:36:00 Test Item Value Reference Range Interpretation Comments Sodium Lvl (test code = Sodium Lvl) 136 135-145 [facility] HospitalLgxlecaIYFJCTWUARMP6785-31-50 09:36:00 Test Item Value Reference Range Interpretation Comments Potassium Lvl (test code = Potassium 3.7 3.5-5.1 Lvl) [facility] HospitalQqanrhwZVTYFDVCJZHI2047-61-14 09:36:00 Test Item Value Reference Range Interpretation Comments Chloride Lvl (test code = Chloride Lvl) 97 95-109 [facility] HospitalNzbirrvCWIHOVNGPLWU4703-94-54 09:36:00 Test Item Value Reference Range Interpretation Comments BUN (test code = BUN) 15 7-22 [facility] HospitalLbqmclkPFKZHHVRKTCP6861-43-20 09:36:00 Test Item Value Reference Range Interpretation Comments Glucose Lvl (test code = Glucose Lvl) 135 70-99 [facility] HospitalWtjlpamKZGPZGUOZS5829-97-77 09:36:00 Test Item Value Reference Range Interpretation Comments Platelet (test code = Platelet) 327 133-450 [facility] HospitalPgcnipjXFEXJGUVQP0844-54-27 09:36:00 Test Item Value Reference Range Interpretation Comments MPV (test code = MPV) 8.6 7.4-10.4 [facility] HospitalEhxkpqsMSVOFTSSJJ6714-95-97 09:36:00 Test Item Value Reference Range Interpretation Comments Hct (test code = Hct) 30.7 42.0-54.0 [facility] HospitalIvyogckUAEGBKODQQ8586-09-16 09:36:00 Test Item Value Reference Range Interpretation Comments MCV (test code = MCV) 88.8 80.0-94.0 [facility] HospitalCmzyjmeDHCAUIMOUU8070-47-65 09:36:00 Test Item Value Reference Range Interpretation Comments RBC (test code = RBC) 3.46 4.70-6.10 [facility] HospitalUxzqvcmZPPAMWNFVU3036-59-99 09:36:00 Test Item Value Reference Range Interpretation Comments Hgb (test code = Hgb) 10.4 14.0-18.0 [facility] HospitalFmhvdhaVRFLLXMQOS8374-02-16 09:36:00 Test Item Value Reference Range Interpretation Comments RDW (test code = RDW) 14.2 11.5-14.5 [facility] HospitalIgcgsaeQIGNPKFDEP9977-21-59 09:36:00 Test Item Value Reference Range Interpretation Comments MCHC (test code = MCHC) 33.8 32.0-36.0 [facility] HospitalLpamiqcOLBVYTTBPF0966-83-51 09:36:00 Test Item Value Reference Range Interpretation Comments MCH (test code = MCH) 30.0 pg 27.0-31.0 [facility] HospitalIibhmmsVQJEXDREPA6406-28-21 09:36:00 Test Item Value Reference Range Interpretation Comments WBC (test code = WBC) 11.4 3.7-10.4 [facility] HospitalSlolyaaRANEYDVZHZ7831-02-41 09:36:00 Test Item Value Reference Range Interpretation Comments Monocytes # (test code 1.5 See_Comment [Aut omated message] The = Monocytes #) system which generated this result tra nsmitted reference range : <=0.8. The reference r jose alfredo was not used to int erpret this result as normal/abnormal . [facility] HospitalVxlyadbLSYTKGZUYG6088-78-26 09:36:00 Test Item Value Reference Range Interpretation Comments Eosinophils # (test code 0.2 See_Comment [A utomated message] The = Eosinophils #) system whic h generated this result tra nsmitted reference range : <=0.5. The reference r jose alfredo was not used to int erpret this result as normal/abnormal . [facility] HospitalOylnsvmEJCJXJTONW3543-08-91 09:36:00 Test Item Value Reference Range Interpretation Comments Lymphocytes # (test code = Lymphocytes 1.3 1.0-5.5 #) [facility] HospitalRirucfdUJIBYPDOIJ5365-06-26 09:36:00 Test Item Value Reference Range Interpretation Comments Segs-Bands # (test code = Segs-Bands #) 8.3 1.5-8.1 [facility] HospitalZhiniwxEEWGPIYAQE8136-24-45 09:36:00 Test Item Value Reference Range Interpretation Comments Eosinophils (test code = 2.0 See_Comment [A utomated message] The Eosinophils) system which ge nerated this result tra nsmitted reference range : <=4.0. The reference r jose alfredo was not used to int erpret this result as normal/abnormal . [facility] HospitalOjarimzHRRWMTMGTN6276-80-89 09:36:00 Test Item Value Reference Range Interpretation Comments Monocytes (test code = Monocytes) 13.2 2.0-12.0 [facility] HospitalPmarcfsKWCQKRKMII0077-57-74 09:36:00 Test Item Value Reference Range Interpretation Comments Lymphocytes (test code = Lymphocytes) 11.1 20.0-40.0 [facility] HospitalAwllzevTEJYMMEQLK4703-95-83 09:36:00 Test Item Value Reference Range Interpretation Comments Segs (test code = Segs) 73.2 45.0-75.0 [facility] HospitalMzdtignDXATCZVJQP4177-02-28 09:36:00 Test Item Value Reference Range Interpretation Comments Basophils # (test code 0.1 See_Comment [Aut omated message] The = Basophils #) system which generated this result tra nsmitted reference range : <=0.2. The reference r jose alfredo was not used to int erpret this result as normal/abnormal . [facility] HospitalWlmtmxvDTFNYIMZFD5178-14-53 09:36:00 Test Item Value Reference Range Interpretation Comments Basophils (test code = 0.5 See_Comment [Aut omated message] The Basophils) system which ge nerated this result tra nsmitted reference range : <=1.0. The reference r jose alfredo was not used to int erpret this result as normal/abnormal . [facility] HospitalMylpbkkFMEZONHNVMHM5205-21-98 09:36:00 Test Item Value Reference Range Interpretation Comments AGAP (test code = AGAP) 6.7 10.0-20.0 [facility] HospitalOzgvgevTLOEBDLMALSG6911-58-54 09:36:00 Test Item Value Reference Range Interpretation Comments B/C Ratio (test code = B/C Ratio) 17 6-25 [facility] HospitalWzkxtlqCHIVRNXBRTXU8840-57-57 09:36:00 Test Item Value Reference Range Interpretation Comments Globulin (test code = Globulin) 3.5 2.7-4.2 [facility] HospitalOndwylkRNRFROQNJWND3693-10-29 09:36:00 Test Item Value Reference Range Interpretation Comments A/G Ratio (test code = A/G Ratio) 0.5 0.7-1.6 [facility] HospitalAojczodIPKWNWUELBBC9136-12-99 09:36:00 Test Item Value Reference Range Interpretation Comments eGFR (test code = eGFR) 85 [facility] HospitalAoqntitAIYKIIQZTZPC3711-11-68 09:36:00 Test Item Value Reference Range Interpretation Comments Total Protein (test code = Total 5.2 6.4-8.4 Protein) [facility] HospitalAlficklIHFUEXUWXBBH1348-83-17 09:36:00 Test Item Value Reference Range Interpretation Comments Albumin Lvl (test code = Albumin Lvl) 1.7 3.5-5.0 [facility] HospitalPbbmjukDMPULPIOWDVK1267-18-72 09:36:00 Test Item Value Reference Range Interpretation Comments ALT (test code = ALT) 18 See_Comment [Auto mated message] The system which ge nerated this result transmit stuart reference range : <=65. The reference range was not used to interpr et this result as cherry l/abnormal. [facility] HospitalCfjzakeHDDQKZJFEDDO0959-24-18 09:36:00 Test Item Value Reference Range Interpretation Comments CO2 (test code = CO2) 36 24-32 [facility] HospitalKogbduuMDKWCEVVQVCU8951-09-34 09:36:00 Test Item Value Reference Range Interpretation Comments Calcium Lvl (test code = Calcium Lvl) 9.1 8.5-10.5 [facility] HospitalWdtptpnKEHWNYELLIEH4083-23-74 09:36:00 Test Item Value Reference Range Interpretation Comments AST (test code = AST) 16 See_Comment [Auto mated message] The system which ge nerated this result transmit stuart reference range : <=37. The reference range was not used to interpr et this result as cherry l/abnormal. [facility]PmdxnfaTGULTUOYEAGD3994-17-09 09:36:00 Test Item Value Reference Range Interpretation Comments Alk Phos (test code = Alk Phos) 38 39-136 [facility] HospitalZenbrdaEKDERJGPFNUM0211-36-35 09:36:00 Test Item Value Reference Range Interpretation Comments Bili Total (test code = Bili Total) 0.3 0.2-1.3 [facility] HospitalZcrviwtOURNHQBDYEMW7841-67-91 09:36:00 Test Item Value Reference Range Interpretation Comments Creatinine Lvl (test code = Creatinine 0.88 0.50-1.40 Lvl) [facility] HospitalOhxdcujAYCNZFNAAMVZ2544-11-75 09:36:00 Test Item Value Reference Range Interpretation Comments Sodium Lvl (test code = Sodium Lvl) 136 135-145 [facility] HospitalPxikacpDAOXLJUUWIXF0478-74-15 09:36:00 Test Item Value Reference Range Interpretation Comments Potassium Lvl (test code = Potassium 3.7 3.5-5.1 Lvl) [facility] HospitalNuoongeIQGNRATXCDTS4110-14-83 09:36:00 Test Item Value Reference Range Interpretation Comments Chloride Lvl (test code = Chloride Lvl) 97 95-109 [facility] HospitalXgbnegnVYQNLIMHSTZO1931-28-28 09:36:00 Test Item Value Reference Range Interpretation Comments BUN (test code = BUN) 15 7-22 [facility] HospitalDuqxfyhALSWGWKWMICQ6812-72-83 09:36:00 Test Item Value Reference Range Interpretation Comments Glucose Lvl (test code = Glucose Lvl) 135 70-99 [facility] HospitalSpnpyhtNKDXQNGEQH0386-73-94 09:36:00 Test Item Value Reference Range Interpretation Comments Platelet (test code = Platelet) 327 133-450 [facility] HospitalKnsdfdhHIZJSGKPVS7212-42-74 09:36:00 Test Item Value Reference Range Interpretation Comments MPV (test code = MPV) 8.6 7.4-10.4 [facility] HospitalXdjhwohDIACUCUJXL8705-92-14 09:36:00 Test Item Value Reference Range Interpretation Comments Hct (test code = Hct) 30.7 42.0-54.0 [facility] HospitalTadjozhNMLOKPOVGI2865-64-58 09:36:00 Test Item Value Reference Range Interpretation Comments MCV (test code = MCV) 88.8 80.0-94.0 [facility] HospitalBldcijzIPUGHCXBTH3723-77-21 09:36:00 Test Item Value Reference Range Interpretation Comments RBC (test code = RBC) 3.46 4.70-6.10 [facility] HospitalJeesdmqXIXFLQDMDW2261-98-10 09:36:00 Test Item Value Reference Range Interpretation Comments Hgb (test code = Hgb) 10.4 14.0-18.0 [facility] HospitalCehlbunZWBJARFMMX8848-69-99 09:36:00 Test Item Value Reference Range Interpretation Comments RDW (test code = RDW) 14.2 11.5-14.5 [facility] HospitalQqxffmhGNYZIFEUSX2850-87-10 09:36:00 Test Item Value Reference Range Interpretation Comments MCHC (test code = MCHC) 33.8 32.0-36.0 [facility] HospitalSjtirmoASXAWKXZAP2520-82-33 09:36:00 Test Item Value Reference Range Interpretation Comments MCH (test code = MCH) 30.0 pg 27.0-31.0 [facility] HospitalOjnjjdhUHGGWAYKJP7950-38-94 09:36:00 Test Item Value Reference Range Interpretation Comments WBC (test code = WBC) 11.4 3.7-10.4 [facility] HospitalXroyljqNYSEYGOMWP2720-79-89 09:36:00 Test Item Value Reference Range Interpretation Comments Monocytes # (test code 1.5 See_Comment [Aut omated message] The = Monocytes #) system which generated this result tra nsmitted reference range : <=0.8. The reference r jose alfredo was not used to int erpret this result as normal/abnormal . [facility] HospitalWkebbvyCRWMFGEHHF0832-61-34 09:36:00 Test Item Value Reference Range Interpretation Comments Eosinophils # (test code 0.2 See_Comment [A utomated message] The = Eosinophils #) system whic h generated this result tra nsmitted reference range : <=0.5. The reference r jose alfredo was not used to int erpret this result as normal/abnormal . [facility] HospitalVmmuubtEJVOXQHMNV5052-73-30 09:36:00 Test Item Value Reference Range Interpretation Comments Lymphocytes # (test code = Lymphocytes 1.3 1.0-5.5 #) [facility] HospitalBhruvlmDYLFCYPTBC3086-44-00 09:36:00 Test Item Value Reference Range Interpretation Comments Segs-Bands # (test code = Segs-Bands #) 8.3 1.5-8.1 [facility] HospitalIadiuyaLPDAAPFBPB8817-53-05 09:36:00 Test Item Value Reference Range Interpretation Comments Eosinophils (test code = 2.0 See_Comment [A utomated message] The Eosinophils) system which ge nerated this result tra nsmitted reference range : <=4.0. The reference r jose alfredo was not used to int erpret this result as normal/abnormal . [facility] HospitalJqvmxsqDFDVHBPREI2315-08-16 09:36:00 Test Item Value Reference Range Interpretation Comments Monocytes (test code = Monocytes) 13.2 2.0-12.0 [facility] HospitalXsxzywhEXHNQLVXKR2232-05-37 09:36:00 Test Item Value Reference Range Interpretation Comments Lymphocytes (test code = Lymphocytes) 11.1 20.0-40.0 [facility] HospitalWlioeviMVDWIJWFLQ9783-11-45 09:36:00 Test Item Value Reference Range Interpretation Comments Segs (test code = Segs) 73.2 45.0-75.0 [facility] HospitalMzmixeiLZZOKHOGWM6149-13-40 09:36:00 Test Item Value Reference Range Interpretation Comments Basophils # (test code 0.1 See_Comment [Aut omated message] The = Basophils #) system which generated this result tra nsmitted reference range : <=0.2. The reference r jose alfredo was not used to int erpret this result as normal/abnormal . [facility] HospitalHkzyjefHNXJIRAGGR8949-92-41 09:36:00 Test Item Value Reference Range Interpretation Comments Basophils (test code = 0.5 See_Comment [Aut omated message] The Basophils) system which ge nerated this result tra nsmitted reference range : <=1.0. The reference r jose alfredo was not used to int erpret this result as normal/abnormal . [facility]2017-10-04 15:09:00 Test Item Value Reference Range Interpretation Comments B/C Ratio (test code = B/C Ratio) 15 6-25 [facility]2017-10-04 15:09:00 Test Item Value Reference Range Interpretation Comments Globulin (test code = Globulin) 3.7 2.7-4.2 [facility]2017-10-04 15:09:00 Test Item Value Reference Range Interpretation Comments A/G Ratio (test code = A/G Ratio) 0.5 0.7-1.6 [facility]2017-10-04 15:09:00 Test Item Value Reference Range Interpretation Comments AGAP (test code = AGAP) 10.8 10.0-20.0 [facility]2017-10-04 15:09:00 Test Item Value Reference Range Interpretation Comments eGFR (test code = eGFR) 83 [facility]2017-10-04 15:09:00 Test Item Value Reference Range Interpretation Comments Alk Phos (test code = Alk Phos) 43 39-136 [facility]2017-10-04 15:09:00 Test Item Value Reference Range Interpretation Comments Bili Total (test code = Bili Total) 0.3 0.2-1.3 [facility]2017-10-04 15:09:00 Test Item Value Reference Range Interpretation Comments Total Protein (test code = Total 5.4 6.4-8.4 Protein) [facility]2017-10-04 15:09:00 Test Item Value Reference Range Interpretation Comments Calcium Lvl (test code = Calcium Lvl) 8.9 8.5-10.5 [facility]2017-10-04 15:09:00 Test Item Value Reference Range Interpretation Comments Albumin Lvl (test code = Albumin Lvl) 1.7 3.5-5.0 [facility]2017-10-04 15:09:00 Test Item Value Reference Range Interpretation Comments CO2 (test code = CO2) 35 24-32 [facility]2017-10-04 15:09:00 Test Item Value Reference Range Interpretation Comments ALT (test code = ALT) 21 See_Comment [Auto mated message] The system which ge nerated this result transmit stuart reference range : <=65. The reference range was not used to interpr et this result as cherry l/abnormal. [facility]2017-10-04 15:09:00 Test Item Value Reference Range Interpretation Comments AST (test code = AST) 19 See_Comment [Auto mated message] The system which ge nerated this result transmit stuart reference range : <=37. The reference range was not used to interpr et this result as cherry l/abnormal. [facility]2017-10-04 15:09:00 Test Item Value Reference Range Interpretation Comments Creatinine Lvl (test code = Creatinine 0.91 0.50-1.40 Lvl) [facility]2017-10-04 15:09:00 Test Item Value Reference Range Interpretation Comments Sodium Lvl (test code = Sodium Lvl) 135 135-145 [facility]2017-10-04 15:09:00 Test Item Value Reference Range Interpretation Comments BUN (test code = BUN) 14 7-22 [facility]2017-10-04 15:09:00 Test Item Value Reference Range Interpretation Comments Chloride Lvl (test code = Chloride Lvl) 93 95-109 [facility]2017-10-04 15:09:00 Test Item Value Reference Range Interpretation Comments Potassium Lvl (test code = Potassium 3.8 3.5-5.1 Lvl) [facility]2017-10-04 15:09:00 Test Item Value Reference Range Interpretation Comments Glucose Lvl (test code = Glucose Lvl) 145 70-99 [facility] HospitalAckpqkzBYTXJHUXJX6824-26-35 15:09:00 Test Item Value Reference Range Interpretation Comments Spherocyte (test code = Moderate Spherocyte) *ABN*(06/04/17 10:09 AM) [facility] HospitalYjdcwhcJUTUYNBCXA7617-87-68 15:09:00 Test Item Value Reference Range Interpretation Comments RBC Morph (test code = Normal (06/04/17 10:09 RBC Morph) AM) [facility] HospitalJwmyvwrWLUIQTKLTF6744-47-05 15:09:00 Test Item Value Reference Range Interpretation Comments Large Plt (test code Moderate *ABN*(06/04/17 = Large Plt) 10:09 AM) [facility] HospitalFasflyiPAMEXSPKHY3077-95-88 15:09:00 Test Item Value Reference Range Interpretation Comments Toxic Gran (test code Moderate *ABN*(06/04/17 = Toxic Gran) 10:09 AM) [facility] HospitalNkcqhwjDTJOHKFDWJ5178-94-13 15:09:00 Test Item Value Reference Range Interpretation Comments Lymphocytes (test code = Lymphocytes) 8.0 20.0-40.0 [facility] HospitalLnutunvKZYYLNDIXU5710-30-61 15:09:00 Test Item Value Reference Range Interpretation Comments Bands (test code = 4.0 See_Comment [Automat ed message] The Bands) system which ge nerated this result transmit stuart reference range : <=11.0. The reference r jose alfredo was not used to interpr et this result as cherry l/abnormal. [facility] HospitalKvwpdvnPKIXSLGNHJ2810-43-32 15:09:00 Test Item Value Reference Range Interpretation Comments Atypical Lymphs (test code = Atypical 0.0 Lymphs) [facility] HospitalTlfqrjwKHXAXOFTJE1757-54-55 15:09:00 Test Item Value Reference Range Interpretation Comments Eosinophils (test code = 1.0 See_Comment [A utomated message] The Eosinophils) system which ge nerated this result tra nsmitted reference range : <=4.0. The reference r jose alfredo was not used to int erpret this result as normal/abnormal . [facility] HospitalEdpzxmwDYIGCXRKBY0292-89-71 15:09:00 Test Item Value Reference Range Interpretation Comments Monocytes (test code = Monocytes) 7.0 2.0-12.0 [facility] HospitalOtmtbutBLFNWBXKGV4236-77-08 15:09:00 Test Item Value Reference Range Interpretation Comments Segs (test code = Segs) 80.0 45.0-75.0 [facility] HospitalSqoncfdJPQWYHAYFR4599-60-87 15:09:00 Test Item Value Reference Range Interpretation Comments Eosinophils # (test code 0.1 See_Comment [A utomated message] The = Eosinophils #) system whic h generated this result tra nsmitted reference range : <=0.5. The reference r jose alfredo was not used to int erpret this result as normal/abnormal . [facility] HospitalPjdedsbDEGVDAVZDG3934-57-53 15:09:00 Test Item Value Reference Range Interpretation Comments Segs-Bands # (test code = Segs-Bands #) 11.8 1.5-8.1 [facility] HospitalPnyneucMWDLMYAHBN6306-37-70 15:09:00 Test Item Value Reference Range Interpretation Comments Monocytes # (test code 1.0 See_Comment [Aut omated message] The = Monocytes #) system which generated this result tra nsmitted reference range : <=0.8. The reference r jose alfredo was not used to int erpret this result as normal/abnormal . [facility] HospitalUovozbjTKQYHLJZJF9278-18-35 15:09:00 Test Item Value Reference Range Interpretation Comments Lymphocytes # (test code = Lymphocytes 1.1 1.0-5.5 #) [facility] HospitalNhsoutiJTJMNGLWRX1542-44-82 15:09:00 Test Item Value Reference Range Interpretation Comments MCH (test code = MCH) 29.7 pg 27.0-31.0 [facility] HospitalSollyuhHRSJEWPHYS3346-86-37 15:09:00 Test Item Value Reference Range Interpretation Comments Hct (test code = Hct) 32.8 42.0-54.0 [facility] HospitalMwqqmlzORRWVSKFKV4435-86-45 15:09:00 Test Item Value Reference Range Interpretation Comments Hgb (test code = Hgb) 11.0 14.0-18.0 [facility] HospitalDlptlqfBSMORHKKEI0168-12-96 15:09:00 Test Item Value Reference Range Interpretation Comments RBC (test code = RBC) 3.68 4.70-6.10 [facility] HospitalAurnsywXGHQBFZMQD9399-59-50 15:09:00 Test Item Value Reference Range Interpretation Comments MCV (test code = MCV) 89.0 80.0-94.0 [facility] HospitalKpuhvvhEXBHLXCMXY4025-30-27 15:09:00 Test Item Value Reference Range Interpretation Comments WBC (test code = WBC) 14.0 3.7-10.4 [facility] HospitalWughfscGVVCWRVOLN9439-12-94 15:09:00 Test Item Value Reference Range Interpretation Comments RDW (test code = RDW) 14.4 11.5-14.5 [facility] HospitalLourzqqTAIHYRNFBK9441-50-26 15:09:00 Test Item Value Reference Range Interpretation Comments Platelet (test code = Platelet) 336 133-450 [facility] HospitalCqqbdwiJTYOCEWHYQ7481-97-92 15:09:00 Test Item Value Reference Range Interpretation Comments MPV (test code = MPV) 8.5 7.4-10.4 [facility] HospitalExpfxuvUKMUBQZODW9489-14-88 15:09:00 Test Item Value Reference Range Interpretation Comments MCHC (test code = MCHC) 33.4 32.0-36.0 [facility]2017-10-04 15:09:00 Test Item Value Reference Range Interpretation Comments B/C Ratio (test code = B/C Ratio) 15 6-25 [facility]2017-10-04 15:09:00 Test Item Value Reference Range Interpretation Comments Globulin (test code = Globulin) 3.7 2.7-4.2 [facility]2017-10-04 15:09:00 Test Item Value Reference Range Interpretation Comments A/G Ratio (test code = A/G Ratio) 0.5 0.7-1.6 [facility]2017-10-04 15:09:00 Test Item Value Reference Range Interpretation Comments AGAP (test code = AGAP) 10.8 10.0-20.0 [facility]2017-10-04 15:09:00 Test Item Value Reference Range Interpretation Comments eGFR (test code = eGFR) 83 [facility]2017-10-04 15:09:00 Test Item Value Reference Range Interpretation Comments Alk Phos (test code = Alk Phos) 43 39-136 [facility]2017-10-04 15:09:00 Test Item Value Reference Range Interpretation Comments Bili Total (test code = Bili Total) 0.3 0.2-1.3 [facility]2017-10-04 15:09:00 Test Item Value Reference Range Interpretation Comments Total Protein (test code = Total 5.4 6.4-8.4 Protein) [facility]2017-10-04 15:09:00 Test Item Value Reference Range Interpretation Comments Calcium Lvl (test code = Calcium Lvl) 8.9 8.5-10.5 [facility]2017-10-04 15:09:00 Test Item Value Reference Range Interpretation Comments Albumin Lvl (test code = Albumin Lvl) 1.7 3.5-5.0 [facility]2017-10-04 15:09:00 Test Item Value Reference Range Interpretation Comments CO2 (test code = CO2) 35 24-32 [facility]2017-10-04 15:09:00 Test Item Value Reference Range Interpretation Comments ALT (test code = ALT) 21 See_Comment [Auto mated message] The system which ge nerated this result transmit stuart reference range : <=65. The reference range was not used to interpr et this result as cherry l/abnormal. [facility]2017-10-04 15:09:00 Test Item Value Reference Range Interpretation Comments AST (test code = AST) 19 See_Comment [Auto mated message] The system which ge nerated this result transmit stuart reference range : <=37. The reference range was not used to interpr et this result as cherry l/abnormal. [facility]2017-10-04 15:09:00 Test Item Value Reference Range Interpretation Comments Creatinine Lvl (test code = Creatinine 0.91 0.50-1.40 Lvl) [facility]2017-10-04 15:09:00 Test Item Value Reference Range Interpretation Comments Sodium Lvl (test code = Sodium Lvl) 135 135-145 [facility]2017-10-04 15:09:00 Test Item Value Reference Range Interpretation Comments BUN (test code = BUN) 14 7-22 [facility]2017-10-04 15:09:00 Test Item Value Reference Range Interpretation Comments Chloride Lvl (test code = Chloride Lvl) 93 95-109 [facility]2017-10-04 15:09:00 Test Item Value Reference Range Interpretation Comments Potassium Lvl (test code = Potassium 3.8 3.5-5.1 Lvl) [facility]2017-10-04 15:09:00 Test Item Value Reference Range Interpretation Comments Glucose Lvl (test code = Glucose Lvl) 145 70-99 [facility] HospitalAovodtwCFWPSNFOZV2804-33-18 15:09:00 Test Item Value Reference Range Interpretation Comments Spherocyte (test code = Moderate Spherocyte) *ABN*(06/04/17 10:09 AM) [facility] HospitalUeshyapTYLUIFHJZJ8615-83-93 15:09:00 Test Item Value Reference Range Interpretation Comments RBC Morph (test code = Normal (06/04/17 10:09 RBC Morph) AM) [facility] HospitalLkrahuxVXNBMJPOTB7897-52-46 15:09:00 Test Item Value Reference Range Interpretation Comments Large Plt (test code Moderate *ABN*(06/04/17 = Large Plt) 10:09 AM) [facility] HospitalRsyvnmqHVVRXSHVQM2568-57-31 15:09:00 Test Item Value Reference Range Interpretation Comments Toxic Gran (test code Moderate *ABN*(06/04/17 = Toxic Gran) 10:09 AM) [facility] HospitalXvszwkfPZFZAHHDIP7698-15-88 15:09:00 Test Item Value Reference Range Interpretation Comments Lymphocytes (test code = Lymphocytes) 8.0 20.0-40.0 [facility] HospitalItsnuifSZVDSYUZTY6575-73-70 15:09:00 Test Item Value Reference Range Interpretation Comments Bands (test code = 4.0 See_Comment [Automat ed message] The Bands) system which ge nerated this result transmit stuart reference range : <=11.0. The reference r jose alfredo was not used to interpr et this result as cherry l/abnormal. [facility] HospitalXzjonqcFDKYRNRVPA7542-06-89 15:09:00 Test Item Value Reference Range Interpretation Comments Atypical Lymphs (test code = Atypical 0.0 Lymphs) [facility] HospitalBuelvbyQIHETTAWUD2970-38-09 15:09:00 Test Item Value Reference Range Interpretation Comments Eosinophils (test code = 1.0 See_Comment [A utomated message] The Eosinophils) system which ge nerated this result tra nsmitted reference range : <=4.0. The reference r jose alfredo was not used to int erpret this result as normal/abnormal . [facility] HospitalZhdzveuVJJLKPWYXN8616-80-10 15:09:00 Test Item Value Reference Range Interpretation Comments Monocytes (test code = Monocytes) 7.0 2.0-12.0 [facility] HospitalFgytqspLIJLYLRNGE9507-19-02 15:09:00 Test Item Value Reference Range Interpretation Comments Segs (test code = Segs) 80.0 45.0-75.0 [facility] HospitalMgddzokBPSNMLYMHB6996-64-05 15:09:00 Test Item Value Reference Range Interpretation Comments Eosinophils # (test code 0.1 See_Comment [A utomated message] The = Eosinophils #) system whic h generated this result tra nsmitted reference range : <=0.5. The reference r jose alfredo was not used to int erpret this result as normal/abnormal . [facility] HospitalFcaezprSHCYZFQGUM1715-89-90 15:09:00 Test Item Value Reference Range Interpretation Comments Segs-Bands # (test code = Segs-Bands #) 11.8 1.5-8.1 [facility] HospitalIindcxhQPECMZFETA6059-74-12 15:09:00 Test Item Value Reference Range Interpretation Comments Monocytes # (test code 1.0 See_Comment [Aut omated message] The = Monocytes #) system which generated this result tra nsmitted reference range : <=0.8. The reference r jose alfredo was not used to int erpret this result as normal/abnormal . [facility] HospitalOvpquwiKZMRGQPDID8432-79-80 15:09:00 Test Item Value Reference Range Interpretation Comments Lymphocytes # (test code = Lymphocytes 1.1 1.0-5.5 #) [facility] HospitalYnmviorXVWVGTKCPR3473-76-14 15:09:00 Test Item Value Reference Range Interpretation Comments MCH (test code = MCH) 29.7 pg 27.0-31.0 [facility] HospitalEmnpjbbYLVRPOKXEN4635-51-72 15:09:00 Test Item Value Reference Range Interpretation Comments Hct (test code = Hct) 32.8 42.0-54.0 [facility] HospitalRhdifdaXQZCDTKVMC3382-82-79 15:09:00 Test Item Value Reference Range Interpretation Comments Hgb (test code = Hgb) 11.0 14.0-18.0 [facility] HospitalQwrsfiqESGHAOBMMD1568-01-55 15:09:00 Test Item Value Reference Range Interpretation Comments RBC (test code = RBC) 3.68 4.70-6.10 [facility] HospitalOvngepxDUIQCYJTKM3421-50-99 15:09:00 Test Item Value Reference Range Interpretation Comments MCV (test code = MCV) 89.0 80.0-94.0 [facility] HospitalRmsxytgYMTOFAHZLS1043-63-84 15:09:00 Test Item Value Reference Range Interpretation Comments WBC (test code = WBC) 14.0 3.7-10.4 [facility] HospitalBqbhfgfHDUFAWMRSL1997-28-54 15:09:00 Test Item Value Reference Range Interpretation Comments RDW (test code = RDW) 14.4 11.5-14.5 [facility] HospitalCdmattiXXAKJUZIVY0345-54-98 15:09:00 Test Item Value Reference Range Interpretation Comments Platelet (test code = Platelet) 336 133-450 [facility] HospitalBkesbenOQSVYJIFEQ7651-34-56 15:09:00 Test Item Value Reference Range Interpretation Comments MPV (test code = MPV) 8.5 7.4-10.4 [facility] HospitalMpwttrvZGJWSYQQNV5378-28-74 15:09:00 Test Item Value Reference Range Interpretation Comments MCHC (test code = MCHC) 33.4 32.0-36.0 [facility]2017-10-04 15:09:00 Test Item Value Reference Range Interpretation Comments B/C Ratio (test code = B/C Ratio) 15 6-25 [facility]2017-10-04 15:09:00 Test Item Value Reference Range Interpretation Comments Globulin (test code = Globulin) 3.7 2.7-4.2 [facility]2017-10-04 15:09:00 Test Item Value Reference Range Interpretation Comments A/G Ratio (test code = A/G Ratio) 0.5 0.7-1.6 [facility]2017-10-04 15:09:00 Test Item Value Reference Range Interpretation Comments AGAP (test code = AGAP) 10.8 10.0-20.0 [facility]2017-10-04 15:09:00 Test Item Value Reference Range Interpretation Comments eGFR (test code = eGFR) 83 [facility]2017-10-04 15:09:00 Test Item Value Reference Range Interpretation Comments Alk Phos (test code = Alk Phos) 43 39-136 [facility]2017-10-04 15:09:00 Test Item Value Reference Range Interpretation Comments Bili Total (test code = Bili Total) 0.3 0.2-1.3 [facility]2017-10-04 15:09:00 Test Item Value Reference Range Interpretation Comments Total Protein (test code = Total 5.4 6.4-8.4 Protein) [facility]2017-10-04 15:09:00 Test Item Value Reference Range Interpretation Comments Calcium Lvl (test code = Calcium Lvl) 8.9 8.5-10.5 [facility]2017-10-04 15:09:00 Test Item Value Reference Range Interpretation Comments Albumin Lvl (test code = Albumin Lvl) 1.7 3.5-5.0 [facility]2017-10-04 15:09:00 Test Item Value Reference Range Interpretation Comments CO2 (test code = CO2) 35 24-32 [facility]2017-10-04 15:09:00 Test Item Value Reference Range Interpretation Comments ALT (test code = ALT) 21 See_Comment [Auto mated message] The system which ge nerated this result transmit stuart reference range : <=65. The reference range was not used to interpr et this result as cherry l/abnormal. [facility]2017-10-04 15:09:00 Test Item Value Reference Range Interpretation Comments AST (test code = AST) 19 See_Comment [Auto mated message] The system which ge nerated this result transmit stuart reference range : <=37. The reference range was not used to interpr et this result as cherry l/abnormal. [facility] [facility] 15:09:00 Test Item Value Reference Range Interpretation Comments Creatinine Lvl (test code = Creatinine 0.91 0.50-1.40 Lvl) [facility]2017-10-04 15:09:00 Test Item Value Reference Range Interpretation Comments Sodium Lvl (test code = Sodium Lvl) 135 135-145 [facility]2017-10-04 15:09:00 Test Item Value Reference Range Interpretation Comments BUN (test code = BUN) 14 7-22 [facility]2017-10-04 15:09:00 Test Item Value Reference Range Interpretation Comments Chloride Lvl (test code = Chloride Lvl) 93 95-109 [facility]2017-10-04 15:09:00 Test Item Value Reference Range Interpretation Comments Potassium Lvl (test code = Potassium 3.8 3.5-5.1 Lvl) [facility]2017-10-04 15:09:00 Test Item Value Reference Range Interpretation Comments Glucose Lvl (test code = Glucose Lvl) 145 70-99 [facility]GsohqjpCAFLVCOHVZ2450-88-16 15:09:00 Test Item Value Reference Range Interpretation Comments Spherocyte (test code = Moderate Spherocyte) *ABN*(06/04/17 10:09 AM) [facility] HospitalJjickrtWARJFQEGWD4080-91-20 15:09:00 Test Item Value Reference Range Interpretation Comments RBC Morph (test code = Normal (06/04/17 10:09 RBC Morph) AM) [facility] HospitalSbdbjiiWBMDBXQNYA6752-41-73 15:09:00 Test Item Value Reference Range Interpretation Comments Large Plt (test code Moderate *ABN*(06/04/17 = Large Plt) 10:09 AM) [facility] HospitalNtimorsQAMDKHPHES2882-50-70 15:09:00 Test Item Value Reference Range Interpretation Comments Toxic Gran (test code Moderate *ABN*(06/04/17 = Toxic Gran) 10:09 AM) [facility] HospitalXfgsbiyBOVRQKLUPH9349-15-11 15:09:00 Test Item Value Reference Range Interpretation Comments Lymphocytes (test code = Lymphocytes) 8.0 20.0-40.0 [facility] HospitalRdkbfopAIOFDYNGLM6927-73-17 15:09:00 Test Item Value Reference Range Interpretation Comments Bands (test code = 4.0 See_Comment [Automat ed message] The Bands) system which ge nerated this result transmit stuart reference range : <=11.0. The reference r jose alfredo was not used to interpr et this result as cherry l/abnormal. [facility] HospitalPalrwgvBXJDMUWLGT8511-06-20 15:09:00 Test Item Value Reference Range Interpretation Comments Atypical Lymphs (test code = Atypical 0.0 Lymphs) [facility] HospitalKrhkqbkQQMUKSCUQI6943-31-54 15:09:00 Test Item Value Reference Range Interpretation Comments Eosinophils (test code = 1.0 See_Comment [A utomated message] The Eosinophils) system which ge nerated this result tra nsmitted reference range : <=4.0. The reference r jose alfredo was not used to int erpret this result as normal/abnormal . [facility] HospitalTpmxfiiZKCMMWDOKK6871-47-06 15:09:00 Test Item Value Reference Range Interpretation Comments Monocytes (test code = Monocytes) 7.0 2.0-12.0 [facility] HospitalEfkumwsWOKVTFOYII1015-81-09 15:09:00 Test Item Value Reference Range Interpretation Comments Segs (test code = Segs) 80.0 45.0-75.0 [facility] HospitalEeqybvlTVKHZDSLTI0280-29-57 15:09:00 Test Item Value Reference Range Interpretation Comments Eosinophils # (test code 0.1 See_Comment [A utomated message] The = Eosinophils #) system whic h generated this result tra nsmitted reference range : <=0.5. The reference r jose alfredo was not used to int erpret this result as normal/abnormal . [facility] HospitalLpxeqllAXJLNVWOBH4604-95-16 15:09:00 Test Item Value Reference Range Interpretation Comments Segs-Bands # (test code = Segs-Bands #) 11.8 1.5-8.1 [facility] HospitalKycasfaHDTBZVYYPX7052-57-69 15:09:00 Test Item Value Reference Range Interpretation Comments Monocytes # (test code 1.0 See_Comment [Aut omated message] The = Monocytes #) system which generated this result tra nsmitted reference range : <=0.8. The reference r jose alfredo was not used to int erpret this result as normal/abnormal . [facility] HospitalJaoezuvLYEIVXLFQY3021-63-42 15:09:00 Test Item Value Reference Range Interpretation Comments Lymphocytes # (test code = Lymphocytes 1.1 1.0-5.5 #) [facility] HospitalBzcpdxkMSMHDPKISW1327-96-42 15:09:00 Test Item Value Reference Range Interpretation Comments MCH (test code = MCH) 29.7 pg 27.0-31.0 [facility] HospitalDgqsyzsZLJCPBEFDM4024-96-88 15:09:00 Test Item Value Reference Range Interpretation Comments Hct (test code = Hct) 32.8 42.0-54.0 [facility] HospitalLtxbozgFJYKVOBJFX6938-41-39 15:09:00 Test Item Value Reference Range Interpretation Comments Hgb (test code = Hgb) 11.0 14.0-18.0 [facility] HospitalPrqhwukRGEUMAQMNP6805-77-88 15:09:00 Test Item Value Reference Range Interpretation Comments RBC (test code = RBC) 3.68 4.70-6.10 [facility] HospitalMztteltSSGGXMEIIB6092-81-16 15:09:00 Test Item Value Reference Range Interpretation Comments MCV (test code = MCV) 89.0 80.0-94.0 [facility] HospitalLiooefvYCYXAWQOPE3798-25-40 15:09:00 Test Item Value Reference Range Interpretation Comments WBC (test code = WBC) 14.0 3.7-10.4 [facility] HospitalQmohtjnEFTYDROZXS5872-53-50 15:09:00 Test Item Value Reference Range Interpretation Comments RDW (test code = RDW) 14.4 11.5-14.5 [facility] HospitalPqafktfZEYBHGISDV8433-40-87 15:09:00 Test Item Value Reference Range Interpretation Comments Platelet (test code = Platelet) 336 133-450 [facility] HospitalDmofbkxWYLWRINMNI2678-30-11 15:09:00 Test Item Value Reference Range Interpretation Comments MPV (test code = MPV) 8.5 7.4-10.4 [facility] HospitalAxdccyvSAUYUOOYQW1333-52-41 15:09:00 Test Item Value Reference Range Interpretation Comments MCHC (test code = MCHC) 33.4 32.0-36.0 [facility] HospitalPibtpifBYNSVLJIKZ3698-50-16 20:40:00 Test Item Value Reference Range Interpretation Comments Basophils (test code = 0.4 See_Comment [Aut omated message] The Basophils) system which ge nerated this result tra nsmitted reference range : <=1.0. The reference r jose alfredo was not used to int erpret this result as normal/abnormal . [facility] HospitalUefxbjnLEHQPQNEUP1450-21-41 20:40:00 Test Item Value Reference Range Interpretation Comments RBC Morph (test code = Normal (06/03/17 3:40 RBC Morph) PM) [facility] HospitalOdvtfzsECODAQWGGY8764-55-81 20:40:00 Test Item Value Reference Range Interpretation Comments Plt Morph (test code = Normal (06/03/17 3:40 Plt Morph) PM) [facility] HospitalCbdxjhcDXPDGSECMA1055-04-35 20:40:00 Test Item Value Reference Range Interpretation Comments Basophils # (test code 0.1 See_Comment [Aut omated message] The = Basophils #) system which generated this result tra nsmitted reference range : <=0.2. The reference r jose alfredo was not used to int erpret this result as normal/abnormal . [facility] HospitalChcrgytELLGOSBXYH5668-36-53 20:40:00 Test Item Value Reference Range Interpretation Comments Basophils (test code = 0.4 See_Comment [Aut omated message] The Basophils) system which ge nerated this result tra nsmitted reference range : <=1.0. The reference r jose alfredo was not used to int erpret this result as normal/abnormal . [facility] HospitalOuypwkqZCLTKZHVZV7201-50-19 20:40:00 Test Item Value Reference Range Interpretation Comments RBC Morph (test code = Normal (06/03/17 3:40 RBC Morph) PM) [facility] HospitalTgvarolZWTZRPBJXL1211-24-75 20:40:00 Test Item Value Reference Range Interpretation Comments Plt Morph (test code = Normal (06/03/17 3:40 Plt Morph) PM) [facility] HospitalGitzhyxBPKPXHDHUH5840-03-23 20:40:00 Test Item Value Reference Range Interpretation Comments Basophils # (test code 0.1 See_Comment [Aut omated message] The = Basophils #) system which generated this result tra nsmitted reference range : <=0.2. The reference r jose alfredo was not used to int erpret this result as normal/abnormal . [facility] HospitalEkzfxreUNCQPPVZDB0756-05-32 20:40:00 Test Item Value Reference Range Interpretation Comments Basophils (test code = 0.4 See_Comment [Aut omated message] The Basophils) system which ge nerated this result tra nsmitted reference range : <=1.0. The reference r jose alfredo was not used to int erpret this result as normal/abnormal . [facility] HospitalZmgsfozRBZDEYZMSI4889-18-79 20:40:00 Test Item Value Reference Range Interpretation Comments RBC Morph (test code = Normal (06/03/17 3:40 RBC Morph) PM) [facility] HospitalKaomofgJMTTVDHWDS8733-21-87 20:40:00 Test Item Value Reference Range Interpretation Comments Plt Morph (test code = Normal (06/03/17 3:40 Plt Morph) PM) [facility] HospitalRlivtegFDXLPJFFXX8951-91-97 20:40:00 Test Item Value Reference Range Interpretation Comments Basophils # (test code 0.1 See_Comment [Aut omated message] The = Basophils #) system which generated this result tra nsmitted reference range : <=0.2. The reference r jose alfredo was not used to int erpret this result as normal/abnormal . [facility] HospitalWdqyiywIGUGVTMHHD0847-40-87 09:41:00 Test Item Value Reference Range Interpretation Comments Metamyelocytes (test code 2.0 See_Comment [ Automated message] = Metamyelocytes) The system which generated this result transmitted ref erence range: <=1.0. T he reference range was not used to int erpret this result as normal/abnormal . [facility] HospitalLfoyvjhINWEUHSPRP3402-62-07 09:41:00 Test Item Value Reference Range Interpretation Comments Atypical Lymphs (test code = Atypical 0.0 Lymphs) [facility] HospitalYgbmeneSKOROEBXTO9396-10-09 09:41:00 Test Item Value Reference Range Interpretation Comments Bands (test code = 10.0 See_Comment [Automat ed message] The Bands) system which ge nerated this result transmit stuart reference range : <=11.0. The reference r jose alfredo was not used to interpr et this result as cherry l/abnormal. [facility] HospitalIzlsongQUDQARMOZD2965-09-76 09:41:00 Test Item Value Reference Range Interpretation Comments Plt Morph (test code = Normal (05/31/17 4:41 Plt Morph) AM) [facility] HospitalXzcvnuvIHJMCKMVHG0250-77-83 09:41:00 Test Item Value Reference Range Interpretation Comments RBC Morph (test code = Normal (05/31/17 4:41 RBC Morph) AM) [facility] HospitalNczmivqIPVZWDGAQQ8623-51-21 09:41:00 Test Item Value Reference Range Interpretation Comments Toxic Gran (test code Moderate *ABN*(05/31/17 = Toxic Gran) 4:41 AM) [facility] HospitalZxhuzzmNBSPYUOGIU2180-21-19 09:41:00 Test Item Value Reference Range Interpretation Comments Tot Cell Ct (test code = Tot Cell Ct) 100 1 [facility] HospitalJopamnvPQDXYLELYJ1722-03-63 09:41:00 Test Item Value Reference Range Interpretation Comments Metamyelocytes (test code 2.0 See_Comment [ Automated message] = Metamyelocytes) The system which generated this result transmitted ref erence range: <=1.0. T he reference range was not used to int erpret this result as normal/abnormal . [facility] HospitalWanfzxxWEUKQKXBNI4376-81-20 09:41:00 Test Item Value Reference Range Interpretation Comments Atypical Lymphs (test code = Atypical 0.0 Lymphs) [facility] HospitalRewthbuATOSYIDUYL0194-29-73 09:41:00 Test Item Value Reference Range Interpretation Comments Bands (test code = 10.0 See_Comment [Automat ed message] The Bands) system which ge nerated this result transmit stuart reference range : <=11.0. The reference r jose alfredo was not used to interpr et this result as cherry l/abnormal. [facility] HospitalJfforssCSEDUIIKRK2366-82-24 09:41:00 Test Item Value Reference Range Interpretation Comments Plt Morph (test code = Normal (05/31/17 4:41 Plt Morph) AM) [facility] HospitalFcmbbmhKBRHXCJRGU1001-48-51 09:41:00 Test Item Value Reference Range Interpretation Comments RBC Morph (test code = Normal (05/31/17 4:41 RBC Morph) AM) [facility] HospitalCstnxaySWFMMPKYXJ6264-49-15 09:41:00 Test Item Value Reference Range Interpretation Comments Toxic Gran (test code Moderate *ABN*(05/31/17 = Toxic Gran) 4:41 AM) [facility] HospitalLpttwcrITNREDOEUC7746-77-74 09:41:00 Test Item Value Reference Range Interpretation Comments Tot Cell Ct (test code = Tot Cell Ct) 100 1 [facility] HospitalBfnjzkkBBNHGMAGZE4777-96-78 09:41:00 Test Item Value Reference Range Interpretation Comments Metamyelocytes (test code 2.0 See_Comment [ Automated message] = Metamyelocytes) The system which generated this result transmitted ref erence range: <=1.0. T he reference range was not used to int erpret this result as normal/abnormal . [facility] HospitalAxnkbmzZFKEWWXLUP7364-80-09 09:41:00 Test Item Value Reference Range Interpretation Comments Atypical Lymphs (test code = Atypical 0.0 Lymphs) [facility] HospitalSqzxyawESXMXUTQBK3651-79-15 09:41:00 Test Item Value Reference Range Interpretation Comments Bands (test code = 10.0 See_Comment [Automat ed message] The Bands) system which ge nerated this result transmit stuart reference range : <=11.0. The reference r jose alfredo was not used to interpr et this result as cherry l/abnormal. [facility] HospitalMnzarqvOUYPLMKINH0470-83-79 09:41:00 Test Item Value Reference Range Interpretation Comments Plt Morph (test code = Normal (05/31/17 4:41 Plt Morph) AM) [facility] HospitalKoyjxfsIFPFAIQTGQ1539-72-61 09:41:00 Test Item Value Reference Range Interpretation Comments RBC Morph (test code = Normal (05/31/17 4:41 RBC Morph) AM) [facility] HospitalHelktdjIBULXWTVLS9573-21-23 09:41:00 Test Item Value Reference Range Interpretation Comments Toxic Gran (test code Moderate *ABN*(05/31/17 = Toxic Gran) 4:41 AM) [facility] HospitalKeatyzqZCWJYLCUSL4741-17-91 09:41:00 Test Item Value Reference Range Interpretation Comments Tot Cell Ct (test code = Tot Cell Ct) 100 1 [facility]2017-09-28 09:27:00 Test Item Value Reference Range Interpretation Comments B/C Ratio (test code = B/C Ratio) 38 6-25 [facility]2017-09-28 09:27:00 Test Item Value Reference Range Interpretation Comments A/G Ratio (test code = A/G Ratio) 0.4 0.7-1.6 [facility]2017-09-28 09:27:00 Test Item Value Reference Range Interpretation Comments Globulin (test code = Globulin) 3.5 2.7-4.2 [facility]2017-09-28 09:27:00 Test Item Value Reference Range Interpretation Comments ALT (test code = ALT) 16 See_Comment [Auto mated message] The system which ge nerated this result transmit stuart reference range : <=65. The reference range was not used to interpr et this result as cherry l/abnormal. [facility]2017-09-28 09:27:00 Test Item Value Reference Range Interpretation Comments Total Protein (test code = Total 5.0 6.4-8.4 Protein) [facility]2017-09-28 09:27:00 Test Item Value Reference Range Interpretation Comments Albumin Lvl (test code = Albumin Lvl) 1.5 3.5-5.0 [facility]2017-09-28 09:27:00 Test Item Value Reference Range Interpretation Comments AST (test code = AST) 18 See_Comment [Auto mated message] The system which ge nerated this result transmit stuart reference range : <=37. The reference range was not used to interpr et this result as cherry l/abnormal. [facility]2017-09-28 09:27:00 Test Item Value Reference Range Interpretation Comments Bili Total (test code = Bili Total) 0.4 0.2-1.3 [facility]2017-09-28 09:27:00 Test Item Value Reference Range Interpretation Comments Alk Phos (test code = Alk Phos) 39 39-136 [facility]2017-09-28 09:27:00 Test Item Value Reference Range Interpretation Comments B/C Ratio (test code = B/C Ratio) 38 6 [facility]2017-09-28 09:27:00 Test Item Value Reference Range Interpretation Comments A/G Ratio (test code = A/G Ratio) 0.4 0.7-1.6 [facility]2017-09-28 09:27:00 Test Item Value Reference Range Interpretation Comments Globulin (test code = Globulin) 3.5 2.7-4.2 [facility]2017-09-28 09:27:00 Test Item Value Reference Range Interpretation Comments ALT (test code = ALT) 16 See_Comment [Auto mated message] The system which ge nerated this result transmit stuart reference range : <=65. The reference range was not used to interpr et this result as cherry l/abnormal. [facility]2017-09-28 09:27:00 Test Item Value Reference Range Interpretation Comments Total Protein (test code = Total 5.0 6.4-8.4 Protein) [facility]2017-09-28 09:27:00 Test Item Value Reference Range Interpretation Comments Albumin Lvl (test code = Albumin Lvl) 1.5 3.5-5.0 [facility]2017-09-28 09:27:00 Test Item Value Reference Range Interpretation Comments AST (test code = AST) 18 See_Comment [Auto mated message] The system which ge nerated this result transmit stuart reference range : <=37. The reference range was not used to interpr et this result as cherry l/abnormal. [facility]2017-09-28 09:27:00 Test Item Value Reference Range Interpretation Comments Bili Total (test code = Bili Total) 0.4 0.2-1.3 [facility]2017-09-28 09:27:00 Test Item Value Reference Range Interpretation Comments Alk Phos (test code = Alk Phos) 39 39-136 [facility]2017-09-28 09:27:00 Test Item Value Reference Range Interpretation Comments B/C Ratio (test code = B/C Ratio) 38 6-25 [facility]2017-09-28 09:27:00 Test Item Value Reference Range Interpretation Comments A/G Ratio (test code = A/G Ratio) 0.4 0.7-1.6 [facility]2017-09-28 09:27:00 Test Item Value Reference Range Interpretation Comments Globulin (test code = Globulin) 3.5 2.7-4.2 [place]507-09-28 09:27:00 Test Item Value Reference Range Interpretation Comments ALT (test code = ALT) 16 See_Comment [Auto mated message] The system which ge nerated this result transmit stuart reference range : <=65. The reference range was not used to interpr et this result as cherry l/abnormal. [facility]2017-09-28 09:27:00 Test Item Value Reference Range Interpretation Comments Total Protein (test code = Total 5.0 6.4-8.4 Protein) [facility]2017-09-28 09:27:00 Test Item Value Reference Range Interpretation Comments Albumin Lvl (test code = Albumin Lvl) 1.5 3.5-5.0 [facility]2017-09-28 09:27:00 Test Item Value Reference Range Interpretation Comments AST (test code = AST) 18 See_Comment [Auto mated message] The system which ge nerated this result transmit stuart reference range : <=37. The reference range was not used to interpr et this result as cherry l/abnormal. [facility]2017-09-28 09:27:00 Test Item Value Reference Range Interpretation Comments Bili Total (test code = Bili Total) 0.4 0.2-1.3 [facility]2017-09-28 09:27:00 Test Item Value Reference Range Interpretation Comments Alk Phos (test code = Alk Phos) 39 39-136 [facility] HospitalXyhsvocAZPTAQDFRD4511-74-31 07:37:00 Test Item Value Reference Range Interpretation Comments Plt Morph (test code = Normal (05/28/17 2:37 Plt Morph) AM) [facility] HospitalRjyuckoQXQWXJESGA6114-25-24 07:37:00 Test Item Value Reference Range Interpretation Comments Plt Morph (test code = Normal (05/28/17 2:37 Plt Morph) AM) [facility] HospitalGmbicmfTFAKDUCFEG1414-72-40 07:37:00 Test Item Value Reference Range Interpretation Comments Plt Morph (test code = Normal (05/28/17 2:37 Plt Morph) AM) [facility] AND [id number] 02:42:00 Test Item Value Reference Range Interpretation Comments UA Mucus (test code = UA Mucus) Few /[facility]F [facility] [id number] 02:42:00 Test Item Value Reference Range Interpretation Comments UA Bacteria (test code = UA Occasional /HPF Bacteria) [facility] [id number] 02:42:00 Test Item Value Reference Range Interpretation Comments UA Amorph Sydni (test code = UA Moderate /HPF Amorph Sydni) [facility] AND [id number] 02:42:00 Test Item Value Reference Range Interpretation Comments UA Sq Epi (test code = UA Sq Occasional /LPF Epi) [facility] AND [id number] 02:42:00 Test Item Value Reference Range Interpretation Comments UA RBC (test code = 6-10 /HPF See_Comment [Automa stuart message] The UA RBC) system which ge nerated this result tra nsmitted reference range : <=2. The reference range was not used to interpr et this result as normal/abnormal . [facility] [id number] 02:42:00 Test Item Value Reference Range Interpretation Comments UA WBC (test code = 0-2 /HPF See_Comment [Automa stuart message] The UA WBC) system which ge nerated this result tra nsmitted reference range : <=5. The reference range was not used to interpr et this result as cherry l/abnormal. [facility] AND [id number] 02:42:00 Test Item Value Reference Range Interpretation Comments UA Leuk Est (test Negative (05/24/17 9:42 code = UA Leuk Est) PM) [facility] AND [id number] 02:42:00 Test Item Value Reference Range Interpretation Comments Micro? (test code = Performed (05/24/17 9:42 Micro?) PM) [facility] [id number] 02:42:00 Test Item Value Reference Range Interpretation Comments UA Urobilinogen (test code = UA 1.0 0.1-1.0 Urobilinogen) [facility] [id number] 02:42:00 Test Item Value Reference Range Interpretation Comments UA Nitrite (test code Negative (05/24/17 9:42 = UA Nitrite) PM) [facility] AND [id number] 02:42:00 Test Item Value Reference Range Interpretation Comments UA Protein (test code = UA Protein) 30 mg/dL [facility] AND [id number] 02:42:00 Test Item Value Reference Range Interpretation Comments UA Bili (test code = Small *ABN*(05/24/17 UA Bili) 9:42 PM) [facility] AND [id number] 02:42:00 Test Item Value Reference Range Interpretation Comments UA Blood (test code = Moderate *ABN*(05/24/17 UA Blood) 9:42 PM) [facility] AND [id number] 02:42:00 Test Item Value Reference Range Interpretation Comments UA Glucose (test code Negative (05/24/17 9:42 = UA Glucose) PM) [facility] AND [id number] 02:42:00 Test Item Value Reference Range Interpretation Comments UA Ketones (test code = Trace *ABN*(05/24/17 UA Ketones) 9:42 PM) [facility] AND [id number] 02:42:00 Test Item Value Reference Range Interpretation Comments UA Spec Grav (test >=1.030 *ABN*(05/24/17 code = UA Spec Grav) 9:42 PM) [facility] AND [id number] 02:42:00 Test Item Value Reference Range Interpretation Comments UA pH (test code = UA pH) 5.0 1 5.0-8.0 [facility] AND [id number] 02:42:00 Test Item Value Reference Range Interpretation Comments UA Color (test code = Yellow *NA*(05/24/17 UA Color) 9:42 PM) [facility] AND [id number] 02:42:00 Test Item Value Reference Range Interpretation Comments UA Turbidity (test code Cloudy *ABN*(05/24/17 = UA Turbidity) 9:42 PM) [facility] AND [id number] 02:42:00 Test Item Value Reference Range Interpretation Comments UA Mucus (test code = UA Mucus) Few /LPF [facility] AND [id number] 02:42:00 Test Item Value Reference Range Interpretation Comments UA Bacteria (test code = UA Occasional /HPF Bacteria) [facility] [id number] 02:42:00 Test Item Value Reference Range Interpretation Comments UA Amorph Sydni (test code = UA Moderate /HPF Amorph Sydni) [facility] AND [id number] 02:42:00 Test Item Value Reference Range Interpretation Comments UA Sq Epi (test code = UA Sq Occasional /LPF Epi) [facility] AND [id number] 02:42:00 Test Item Value Reference Range Interpretation Comments UA RBC (test code = 6-10 /HPF See_Comment [Automa stuart message] The UA RBC) system which ge nerated this result tra nsmitted reference range : <=2. The reference range was not used to interpr et this result as normal/abnormal . [facility] AND [id number] 02:42:00 Test Item Value Reference Range Interpretation Comments UA WBC (test code = 0-2 /HPF See_Comment [Automa stuart message] The UA WBC) system which ge nerated this result tra nsmitted reference range : <=5. The reference range was not used to interpr et this result as cherry l/abnormal. [facility] AND [id number] 02:42:00 Test Item Value Reference Range Interpretation Comments UA Leuk Est (test Negative (05/24/17 9:42 code = UA Leuk Est) PM) [facility] AND [id number] 02:42:00 Test Item Value Reference Range Interpretation Comments Micro? (test code = Performed (05/24/17 9:42 Micro?) PM) [facility] AND [id number] 02:42:00 Test Item Value Reference Range Interpretation Comments UA Urobilinogen (test code = UA 1.0 0.1-1.0 Urobilinogen) [facility] AND [id number] 02:42:00 Test Item Value Reference Range Interpretation Comments UA Nitrite (test code Negative (05/24/17 9:42 = UA Nitrite) PM) [facility] AND [id number] 02:42:00 Test Item Value Reference Range Interpretation Comments UA Protein (test code = UA Protein) 30 mg/dL [facility] AND [id number] 02:42:00 Test Item Value Reference Range Interpretation Comments UA Bili (test code = Small *ABN*(05/24/17 UA Bili) 9:42 PM) [facility] AND [id number] 02:42:00 Test Item Value Reference Range Interpretation Comments UA Blood (test code = Moderate *ABN*(05/24/17 UA Blood) 9:42 PM) [facility] AND [id number] 02:42:00 Test Item Value Reference Range Interpretation Comments UA Glucose (test code Negative (05/24/17 9:42 = UA Glucose) PM) [facility] AND [id number] 02:42:00 Test Item Value Reference Range Interpretation Comments UA Ketones (test code = Trace *ABN*(05/24/17 UA Ketones) 9:42 PM) [facility] AND [id number] 02:42:00 Test Item Value Reference Range Interpretation Comments UA Spec Grav (test >=1.030 *ABN*(05/24/17 code = UA Spec Grav) 9:42 PM) [facility] AND [id number] 02:42:00 Test Item Value Reference Range Interpretation Comments UA pH (test code = UA pH) 5.0 1 5.0-8.0 [facility] AND [id number] 02:42:00 Test Item Value Reference Range Interpretation Comments UA Color (test code = Yellow *NA*(05/24/17 UA Color) 9:42 PM) [facility] AND [id number] 02:42:00 Test Item Value Reference Range Interpretation Comments UA Turbidity (test code Cloudy *ABN*(05/24/17 = UA Turbidity) 9:42 PM) [facility] AND [id number] 02:42:00 Test Item Value Reference Range Interpretation Comments UA Mucus (test code = UA Mucus) Few /LPF [facility] AND [id number] 02:42:00 Test Item Value Reference Range Interpretation Comments UA Bacteria (test code = UA Occasional /HPF Bacteria) [facility] AND [id number] 02:42:00 Test Item Value Reference Range Interpretation Comments UA Amorph Sydni (test code = UA Moderate /HPF Amorph Sydni) [facility] AND [id number] 02:42:00 Test Item Value Reference Range Interpretation Comments UA Sq Epi (test code = UA Sq Occasional /LPF Epi) [facility] [id number] 02:42:00 Test Item Value Reference Range Interpretation Comments UA RBC (test code = 6-10 /HPF See_Comment [Automa stuart message] The UA RBC) system which ge nerated this result tra nsmitted reference range : <=2. The reference range was not used to interpr et this result as normal/abnormal . [facility] [id number] 02:42:00 Test Item Value Reference Range Interpretation Comments UA WBC (test code = 0-2 /HPF See_Comment [Automa stuart message] The UA WBC) system which ge nerated this result tra nsmitted reference range : <=5. The reference range was not used to interpr et this result as cherry l/abnormal. [facility] [id number] 02:42:00 Test Item Value Reference Range Interpretation Comments UA Leuk Est (test Negative (05/24/17 9:42 code = UA Leuk Est) PM) [facility] AND [id number] 02:42:00 Test Item Value Reference Range Interpretation Comments Micro? (test code = Performed (05/24/17 9:42 Micro?) PM) [facility] [id number] 02:42:00 Test Item Value Reference Range Interpretation Comments UA Urobilinogen (test code = UA 1.0 0.1-1.0 Urobilinogen) [facility] [id number] 02:42:00 Test Item Value Reference Range Interpretation Comments UA Nitrite (test code Negative (05/24/17 9:42 = UA Nitrite) PM) [facility] [id number] 02:42:00 Test Item Value Reference Range Interpretation Comments UA Protein (test code = UA Protein) 30 mg/dL [facility] [id number] 02:42:00 Test Item Value Reference Range Interpretation Comments UA Bili (test code = Small *ABN*(05/24/17 UA Bili) 9:42 PM) [facility] [id number] 02:42:00 Test Item Value Reference Range Interpretation Comments UA Blood (test code = Moderate *ABN*(05/24/17 UA Blood) 9:42 PM) [facility] AND [id number] 02:42:00 Test Item Value Reference Range Interpretation Comments UA Glucose (test code Negative (05/24/17 9:42 = UA Glucose) PM) [facility] AND [id number] 02:42:00 Test Item Value Reference Range Interpretation Comments UA Ketones (test code = Trace *ABN*(05/24/17 UA Ketones) 9:42 PM) [facility] AND [id number] 02:42:00 Test Item Value Reference Range Interpretation Comments UA Spec Grav (test >=1.030 *ABN*(05/24/17 code = UA Spec Grav) 9:42 PM) [facility] AND [id number] 02:42:00 Test Item Value Reference Range Interpretation Comments UA pH (test code = UA pH) 5.0 1 5.0-8.0 [facility] AND [id number] 02:42:00 Test Item Value Reference Range Interpretation Comments UA Color (test code = Yellow *NA*(05/24/17 UA Color) 9:42 PM) [facility] AND [id number] 02:42:00 Test Item Value Reference Range Interpretation Comments UA Turbidity (test code Cloudy *ABN*(05/24/17 = UA Turbidity) 9:42 PM) [facility] [id number] 15:55:00 Test Item Value Reference Range Interpretation Comments Procalcitonin Lvl (test 14.55 See_Comment [Au tomated message] code = Procalcitonin Lvl) Th e system which generated this result transmitted ref erence range: <=0.10. The reference range was not used to interpr et this result as normal/abnormal . [facility] [id number] 15:55:00 Test Item Value Reference Range Interpretation Comments Lactic Acid Lvl (test code = Lactic 1.2 0.5-2.2 Acid Lvl) [facility] [id number] 15:55:00 Test Item Value Reference Range Interpretation Comments Procalcitonin Lvl (test 14.55 See_Comment [Au tomated message] code = Procalcitonin Lvl) Th e system which generated this result transmitted ref erence range: <=0.10. The reference range was not used to interpr et this result as normal/abnormal . [facility] [id number] 15:55:00 Test Item Value Reference Range Interpretation Comments Lactic Acid Lvl (test code = Lactic 1.2 0.5-2.2 Acid Lvl) [facility] [id number] 15:55:00 Test Item Value Reference Range Interpretation Comments Procalcitonin Lvl (test 14.55 See_Comment [Au tomated message] code = Procalcitonin Lvl) e system which generated this result transmitted ref erence range: <=0.10. The reference range was not used to interpr et this result as normal/abnormal . [id number] 15:55:00 Test Item Value Reference Range Interpretation Comments Lactic Acid Lvl (test code = Lactic 1.2 0.5-2.2 Acid Lvl) [facility] AND [id number] 12:31:00 Test Item Value Reference Range Interpretation Comments UA Ketones (test code = UA Negative mg/dL Ketones) [facility] AND [id number] 12:31:00 Test Item Value Reference Range Interpretation Comments UA Bili (test code = Negative *NA*(05/23/17 UA Bili) 7:31 AM) [facility] AND [id number] 12:31:00 Test Item Value Reference Range Interpretation Comments UA Blood (test code = Negative (05/23/17 7:31 UA Blood) AM) [facility] AND [id number] 12:31:00 Test Item Value Reference Range Interpretation Comments UA Nitrite (test code Negative (05/23/17 7:31 = UA Nitrite) AM) [facility] AND [id number] 12:31:00 Test Item Value Reference Range Interpretation Comments UA Urobilinogen (test code = UA 2.0 0.1-1.0 Urobilinogen) [facility] AND [id number] 12:31:00 Test Item Value Reference Range Interpretation Comments UA Leuk Est (test Negative (05/23/17 7:31 code = UA Leuk Est) AM) [facility] AND [id number] 12:31:00 Test Item Value Reference Range Interpretation Comments UA WBC (test code = 1 See_Comment [Automa stuart message] The UA WBC) system which ge nerated this result transmit stuart reference range : <=5. The reference range was not used to interpr et this result as cherry l/abnormal. [facility] AND [id number] 12:31:00 Test Item Value Reference Range Interpretation Comments UA Sq Epi (test code = UA Sq Occasional /LPF Epi) [facility] AND [id number] 12:31:00 Test Item Value Reference Range Interpretation Comments UA Mucus (test code = UA Mucus) Few /LPF [facility] AND [id number] 12:31:00 Test Item Value Reference Range Interpretation Comments UA RBC (test code = 2 See_Comment [Automa stuart message] The UA RBC) system which ge nerated this result transmit stuart reference range : <=2. The reference range was not used to interpr et this result as cherry l/abnormal. [facility] AND [id number] 12:31:00 Test Item Value Reference Range Interpretation Comments UA Glucose (test code = UA Glucose) 150 mg/dL [facility] AND [id number] 12:31:00 Test Item Value Reference Range Interpretation Comments UA Protein (test code = UA Protein) 100 mg/dL [facility] AND [id number] 12:31:00 Test Item Value Reference Range Interpretation Comments UA Spec Grav (test code = UA Spec Grav) 1.020 [facility] AND [id number] 12:31:00 Test Item Value Reference Range Interpretation Comments UA pH (test code = UA pH) 5.0 5.0-8.0 [facility] AND [id number] 12:31:00 Test Item Value Reference Range Interpretation Comments UA Color (test code = Yellow *NA*(05/23/17 UA Color) 7:31 AM) [facility] AND [id number] 12:31:00 Test Item Value Reference Range Interpretation Comments UA Turbidity (test code = Clear (05/23/17 7:31 UA Turbidity) AM) [facility] AND [id number] 12:31:00 Test Item Value Reference Range Interpretation Comments UA Ketones (test code = UA Negative mg/dL Ketones) [facility] AND [id number] 12:31:00 Test Item Value Reference Range Interpretation Comments UA Bili (test code = Negative *NA*(05/23/17 UA Bili) 7:31 AM) [facility] AND [id number] 12:31:00 Test Item Value Reference Range Interpretation Comments UA Blood (test code = Negative (05/23/17 7:31 UA Blood) AM) [facility] AND [id number] 12:31:00 Test Item Value Reference Range Interpretation Comments UA Nitrite (test code Negative (05/23/17 7:31 = UA Nitrite) AM) [facility] AND [id number] 12:31:00 Test Item Value Reference Range Interpretation Comments UA Urobilinogen (test code = UA 2.0 0.1-1.0 Urobilinogen) [facility] AND [id number] 12:31:00 Test Item Value Reference Range Interpretation Comments UA Leuk Est (test Negative (05/23/17 7:31 code = UA Leuk Est) AM) [facility] AND [id number] 12:31:00 Test Item Value Reference Range Interpretation Comments UA WBC (test code = 1 See_Comment [Automa stuart message] The UA WBC) system which ge nerated this result transmit stuart reference range : <=5. The reference range was not used to interpr et this result as cherry l/abnormal. [facility] AND [id number] 12:31:00 Test Item Value Reference Range Interpretation Comments UA Sq Epi (test code = UA Sq Occasional /LPF Epi) [facility] AND [id number] 12:31:00 Test Item Value Reference Range Interpretation Comments UA Mucus (test code = UA Mucus) Few /LPF [facility] AND [id number] 12:31:00 Test Item Value Reference Range Interpretation Comments UA RBC (test code = 2 See_Comment [Automa stuart message] The UA RBC) system which ge nerated this result transmit stuart reference range : <=2. The reference range was not used to interpr et this result as cherry l/abnormal. [facility] AND [id number] 12:31:00 Test Item Value Reference Range Interpretation Comments UA Glucose (test code = UA Glucose) 150 mg/dL [facility] AND [id number] 12:31:00 Test Item Value Reference Range Interpretation Comments UA Protein (test code = UA Protein) 100 mg/dL [facility] AND [id number] 12:31:00 Test Item Value Reference Range Interpretation Comments UA Spec Grav (test code = UA Spec Grav) 1.020 [facility] AND [id number] 12:31:00 Test Item Value Reference Range Interpretation Comments UA pH (test code = UA pH) 5.0 5.0-8.0 [facility] AND [id number] 12:31:00 Test Item Value Reference Range Interpretation Comments UA Color (test code = Yellow *NA*(05/23/17 UA Color) 7:31 AM) [facility] AND [id number] 12:31:00 Test Item Value Reference Range Interpretation Comments UA Turbidity (test code = Clear (05/23/17 7:31 UA Turbidity) AM) [facility] AND [id number] 12:31:00 Test Item Value Reference Range Interpretation Comments UA Ketones (test code = UA Negative mg/dL Ketones) [facility] AND [id number] 12:31:00 Test Item Value Reference Range Interpretation Comments UA Bili (test code = Negative *NA*(05/23/17 UA Bili) 7:31 AM) [facility] AND [id number] 12:31:00 Test Item Value Reference Range Interpretation Comments UA Blood (test code = Negative (05/23/17 7:31 UA Blood) AM) [facility] AND [id number] 12:31:00 Test Item Value Reference Range Interpretation Comments UA Nitrite (test code Negative (05/23/17 7:31 = UA Nitrite) AM) [facility] AND [id number] 12:31:00 Test Item Value Reference Range Interpretation Comments UA Urobilinogen (test code = UA 2.0 0.1-1.0 Urobilinogen) [facility] AND [id number] 12:31:00 Test Item Value Reference Range Interpretation Comments UA Leuk Est (test Negative (05/23/17 7:31 code = UA Leuk Est) AM) [facility] AND [id number] 12:31:00 Test Item Value Reference Range Interpretation Comments UA WBC (test code = 1 See_Comment [Automa stuart message] The UA WBC) system which ge nerated this result transmit stuart reference range : <=5. The reference range was not used to interpr et this result as cherry l/abnormal. [facility] [id number] 12:31:00 Test Item Value Reference Range Interpretation Comments UA Sq Epi (test code = UA Sq Occasional /LPF Epi) [facility] [id number] 12:31:00 Test Item Value Reference Range Interpretation Comments UA Mucus (test code = UA Mucus) Few /LPF [facility] AND [id number] 12:31:00 Test Item Value Reference Range Interpretation Comments UA RBC (test code = 2 See_Comment [Automa stuart message] The UA RBC) system which ge nerated this result transmit stuart reference range : <=2. The reference range was not used to interpr et this result as cherry l/abnormal. [facility] [id number] 12:31:00 Test Item Value Reference Range Interpretation Comments UA Glucose (test code = UA Glucose) 150 mg/dL [facility] AND [id number] 12:31:00 Test Item Value Reference Range Interpretation Comments UA Protein (test code = UA Protein) 100 mg/dL [facility] AND [id number] 12:31:00 Test Item Value Reference Range Interpretation Comments UA Spec Grav (test code = UA Spec Grav) 1.020 [facility] [id number] 12:31:00 Test Item Value Reference Range Interpretation Comments UA pH (test code = UA pH) 5.0 5.0-8.0 [facility] AND [id number] 12:31:00 Test Item Value Reference Range Interpretation Comments UA Color (test code = Yellow *NA*(05/23/17 UA Color) 7:31 AM) [facility] [id number] 12:31:00 Test Item Value Reference Range Interpretation Comments UA Turbidity (test code = Clear (05/23/17 7:31 UA Turbidity) AM) [facility] [id number] 11:12:00 Test Item Value Reference Range Interpretation Comments BNP (test code = BNP) 76 [facility] [id number] 11:12:00 Test Item Value Reference Range Interpretation Comments Magnesium Lvl (test code = Magnesium 1.6 1.8-2.4 Lvl) [facility] [id number] 11:12:00 Test Item Value Reference Range Interpretation Comments Lipase Lvl (test code = Lipase Lvl) 151 73-393 [facility]oundAt[facility] LearningIAL [id number] 11:12:00 Test Item Value Reference Range Interpretation Comments Hgb A1C (test code = Hgb A1C) 6.5 [facility] [id number] 11:12:00 Test Item Value Reference Range Interpretation Comments BNP (test code = BNP) 76 [facility] [id number] 11:12:00 Test Item Value Reference Range Interpretation Comments Magnesium Lvl (test code = Magnesium 1.6 1.8-2.4 Lvl) [facility] [id number] 11:12:00 Test Item Value Reference Range Interpretation Comments Lipase Lvl (test code = Lipase Lvl) 151 73-393 [facility] [id number] 11:12:00 Test Item Value Reference Range Interpretation Comments Hgb A1C (test code = Hgb A1C) 6.5 [facility] [id number] 11:12:00 Test Item Value Reference Range Interpretation Comments BNP (test code = BNP) 76 [facility] [id number] 11:12:00 Test Item Value Reference Range Interpretation Comments Magnesium Lvl (test code = Magnesium 1.6 1.8-2.4 Lvl) [facility] [id number] 11:12:00 Test Item Value Reference Range Interpretation Comments Lipase Lvl (test code = Lipase Lvl) 151 73-393 [facility] [id number] 11:12:00 Test Item Value Reference Range Interpretation Comments Hgb A1C (test code = Hgb A1C) 6.5 [facility] [id number] 11:04:00 Test Item Value Reference Range Interpretation Comments UA Sq Epi (test code = UA Sq Occasional /LPF Epi) [facility] [id number] 11:04:00 Test Item Value Reference Range Interpretation Comments UA WBC (test code = UA None Seen (07/28/16 WBC) 5:04 AM) [facility] [id number] 11:04:00 Test Item Value Reference Range Interpretation Comments UA RBC (test None Seen See_Comment [Automated mes moises] code = UA RBC) (07/28/16 5:04 The system which AM) generated this result transmitted ref erence range: <=2. The reference range was not used to int erpret this result as normal/abnormal . [facility] [id number] 11:04:00 Test Item Value Reference Range Interpretation Comments UA Bacteria (test code = UA Occasional /HPF Bacteria) [facility] AND [id number] 11:04:00 Test Item Value Reference Range Interpretation Comments UA Nitrite (test code Negative (07/28/16 5:04 = UA Nitrite) AM) [facility] [id number] 11:04:00 Test Item Value Reference Range Interpretation Comments UA Leuk Est (test Negative (07/28/16 5:04 code = UA Leuk Est) AM) [facility] AND [id number] 11:04:00 Test Item Value Reference Range Interpretation Comments UA Turbidity (test code = Clear (07/28/16 5:04 UA Turbidity) AM) [facility] AND [id number] 11:04:00 Test Item Value Reference Range Interpretation Comments UA Color (test code = UA Color) STRAW [facility] AND [id number] 11:04:00 Test Item Value Reference Range Interpretation Comments UA Ketones (test code Negative *NA*(07/28/16 = UA Ketones) 5:04 AM) [facility] [id number] 11:04:00 Test Item Value Reference Range Interpretation Comments UA Bili (test code = Negative *NA*(07/28/16 UA Bili) 5:04 AM) [facility] [id number] 11:04:00 Test Item Value Reference Range Interpretation Comments UA Spec Grav (test code = UA Spec 1.010 1 Grav) [facility] AND [id number] 11:04:00 Test Item Value Reference Range Interpretation Comments UA Urobilinogen (test code = UA 0.2 0.1-1.0 Urobilinogen) [facility] AND [id number] 11:04:00 Test Item Value Reference Range Interpretation Comments UA Blood (test code = Negative (07/28/16 5:04 UA Blood) AM) [facility] AND [id number] 11:04:00 Test Item Value Reference Range Interpretation Comments UA pH (test code = UA pH) 7.0 1 5.0-8.0 [facility] AND [id number] 11:04:00 Test Item Value Reference Range Interpretation Comments UA Glucose (test code = UA Glucose) 100 mg/dL [facility] AND [id number] 11:04:00 Test Item Value Reference Range Interpretation Comments UA Protein (test code Negative (07/28/16 5:04 = UA Protein) AM) [facility] AND [id number] 11:04:00 Test Item Value Reference Range Interpretation Comments UA Sq Epi (test code = UA Sq Occasional /LPF Epi) [facility] AND [id number] 11:04:00 Test Item Value Reference Range Interpretation Comments UA WBC (test code = UA None Seen (07/28/16 WBC) 5:04 AM) [facility] AND [id number] 11:04:00 Test Item Value Reference Range Interpretation Comments UA RBC (test None Seen See_Comment [Automated mes moises] code = UA RBC) (07/28/16 5:04 The system which AM) generated this result transmitted ref erence range: <=2. The reference range was not used to int erpret this result as normal/abnormal . [facility] AND [id number] 11:04:00 Test Item Value Reference Range Interpretation Comments UA Bacteria (test code = UA Occasional /HPF Bacteria) [facility] AND [id number] 11:04:00 Test Item Value Reference Range Interpretation Comments UA Nitrite (test code Negative (07/28/16 5:04 = UA Nitrite) AM) [facility] AND [id number] 11:04:00 Test Item Value Reference Range Interpretation Comments UA Leuk Est (test Negative (07/28/16 5:04 code = UA Leuk Est) AM) [facility] AND [id number] 11:04:00 Test Item Value Reference Range Interpretation Comments UA Turbidity (test code = Clear (07/28/16 5:04 UA Turbidity) AM) [facility] [id number] 11:04:00 Test Item Value Reference Range Interpretation Comments UA Color (test code = UA Color) STRAW [facility] [id number] 11:04:00 Test Item Value Reference Range Interpretation Comments UA Ketones (test code Negative *NA*(07/28/16 = UA Ketones) 5:04 AM) [facility] [id number] 11:04:00 Test Item Value Reference Range Interpretation Comments UA Bili (test code = Negative *NA*(07/28/16 UA Bili) 5:04 AM) [facility] [id number] 11:04:00 Test Item Value Reference Range Interpretation Comments UA Spec Grav (test code = UA Spec 1.010 1 Grav) [facility] AND [id number] 11:04:00 Test Item Value Reference Range Interpretation Comments UA Urobilinogen (test code = UA 0.2 0.1-1.0 Urobilinogen) [facility] [id number] 11:04:00 Test Item Value Reference Range Interpretation Comments UA Blood (test code = Negative (07/28/16 5:04 UA Blood) AM) [facility] AND [id number] 11:04:00 Test Item Value Reference Range Interpretation Comments UA pH (test code = UA pH) 7.0 1 5.0-8.0 [facility] [id number] 11:04:00 Test Item Value Reference Range Interpretation Comments UA Glucose (test code = UA Glucose) 100 mg/dL [facility] [id number] 11:04:00 Test Item Value Reference Range Interpretation Comments UA Protein (test code Negative (07/28/16 5:04 = UA Protein) AM) [facility] [id number] 11:04:00 Test Item Value Reference Range Interpretation Comments UA Sq Epi (test code = UA Sq Occasional /LPF Epi) [facility] AND [id number] 11:04:00 Test Item Value Reference Range Interpretation Comments UA WBC (test code = UA None Seen (07/28/16 WBC) 5:04 AM) [facility] [id number] 11:04:00 Test Item Value Reference Range Interpretation Comments UA RBC (test None Seen See_Comment [Automated mes moises] code = UA RBC) (07/28/16 5:04 The system which AM) generated this result transmitted ref erence range: <=2. The reference range was not used to int erpret this result as normal/abnormal . [facility] [id number] 11:04:00 Test Item Value Reference Range Interpretation Comments UA Bacteria (test code = UA Occasional /HPF Bacteria) [facility] [id number] 11:04:00 Test Item Value Reference Range Interpretation Comments UA Nitrite (test code Negative (07/28/16 5:04 = UA Nitrite) AM) [facility] [id number] 11:04:00 Test Item Value Reference Range Interpretation Comments UA Leuk Est (test Negative (07/28/16 5:04 code = UA Leuk Est) AM) [facility] [id number] 11:04:00 Test Item Value Reference Range Interpretation Comments UA Turbidity (test code = Clear (07/28/16 5:04 UA Turbidity) AM) [facility] [id number] 11:04:00 Test Item Value Reference Range Interpretation Comments UA Color (test code = UA Color) STRAW [facility] [id number] 11:04:00 Test Item Value Reference Range Interpretation Comments UA Ketones (test code Negative *NA*(07/28/16 = UA Ketones) 5:04 AM) [facility] [id number] 11:04:00 Test Item Value Reference Range Interpretation Comments UA Bili (test code = Negative *NA*(07/28/16 UA Bili) 5:04 AM) [facility] [id number] 11:04:00 Test Item Value Reference Range Interpretation Comments UA Spec Grav (test code = UA Spec 1.010 1 Grav) [facility] [id number] 11:04:00 Test Item Value Reference Range Interpretation Comments UA Urobilinogen (test code = UA 0.2 0.1-1.0 Urobilinogen) [facility] [id number] 11:04:00 Test Item Value Reference Range Interpretation Comments UA Blood (test code = Negative (07/28/16 5:04 UA Blood) AM) [facility] AND [id number] 11:04:00 Test Item Value Reference Range Interpretation Comments UA pH (test code = UA pH) 7.0 1 5.0-8.0 [facility] AND [id number] 11:04:00 Test Item Value Reference Range Interpretation Comments UA Glucose (test code = UA Glucose) 100 mg/dL [facility] AND [id number] 11:04:00 Test Item Value Reference Range Interpretation Comments UA Protein (test code Negative (07/28/16 5:04 = UA Protein) AM) [id number] 11:00:50 Test Item Value Reference Range Interpretation Comments CHD Risk (test code = CHD Risk) 2.35 4.00-7.30 [facility]oundTiqpzniUPQBPH0627-20-99 11:00:50 Test Item Value Reference Range Interpretation Comments VLDL (test code = VLDL) 27 [id number] 11:00:50 Test Item Value Reference Range Interpretation Comments LDL (Calculated) (test code = LDL 46 (Calculated)) [facility]oundLxgrveyZEDATH2400-13-25 11:00:50 Test Item Value Reference Range Interpretation Comments Chol (test code = Chol) 127 [id number] 11:00:50 Test Item Value Reference Range Interpretation Comments HDL (test code = HDL) 54 [facility] [place]oundZnjjlolJFXEPH1412-42-56 11:00:50 Test Item Value Reference Range Interpretation Comments Trig (test code = Trig) 135 [facility] [id number] 11:00:50 Test Item Value Reference Range Interpretation Comments Hgb A1C (test code = Hgb A1C) 6.1 [id number] 11:00:50 Test Item Value Reference Range Interpretation Comments CHD Risk (test code = CHD Risk) 2.35 4.00-7.30 [facility]oundLsdkgowZHRQGK7717-02-06 11:00:50 Test Item Value Reference Range Interpretation Comments VLDL (test code = VLDL) 27 [id number] 11:00:50 Test Item Value Reference Range Interpretation Comments LDL (Calculated) (test code = LDL 46 (Calculated)) [facility]oundXvlaudcUWFTNE2064-31-86 11:00:50 Test Item Value Reference Range Interpretation Comments Chol (test code = Chol) 127 [facility]SbgyhpePPEPBU1197-50-46 11:00:50 Test Item Value Reference Range Interpretation Comments HDL (test code = HDL) 54 [id number] 11:00:50 Test Item Value Reference Range Interpretation Comments Trig (test code = Trig) 135 [facility] [id number] 11:00:50 Test Item Value Reference Range Interpretation Comments Hgb A1C (test code = Hgb A1C) 6.1 [id number] 11:00:50 Test Item Value Reference Range Interpretation Comments CHD Risk (test code = CHD Risk) 2.35 4.00-7.30 [facility]oundUvugrxpVMRFQK1785-27-97 11:00:50 Test Item Value Reference Range Interpretation Comments VLDL (test code = VLDL) 27 [facility] [place]oundPiyzxlqOHJUCB0383-69-30 11:00:50 Test Item Value Reference Range Interpretation Comments LDL (Calculated) (test code = LDL 46 (Calculated)) [id number] 11:00:50 Test Item Value Reference Range Interpretation Comments Chol (test code = Chol) 127 [facility] MoundJtzakrhAVATIT8441-13-94 11:00:50 Test Item Value Reference Range Interpretation Comments HDL (test code = HDL) 54 [facility] MoundYatoxjkSFCSRY2063-80-26 11:00:50 Test Item Value Reference Range Interpretation Comments Trig (test code = Trig) 135 [facility] [id number] 11:00:50 Test Item Value Reference Range Interpretation Comments Hgb A1C (test code = Hgb A1C) 6.1 [facility]annCARDIAC [id number] 04:12:00 Test Item Value Reference Range Interpretation Comments CK MB Index (test no gt See_Comment [Automate d message] The code = CK MB Index) system w [facility] generated this result transmit stuart reference range : <=2.5. The reference range was not used to interpr et this result as cherry l/abnormal. [facility]oundCARDIAC [id number] 04:12:00 Test Item Value Reference Range Interpretation Comments Troponin-I (test code no gt See_Comment [Auto mated message] The = Troponin-I) system which g enerated this result transmit stuart reference range : <=0.40. The reference r jose alfredo was not used to interpr et this result as cherry l/abnormal. [facility] INNOBI [id number] 04:12:00 Test Item Value Reference Range Interpretation Comments CK MB (test code = CK MB) no gt 0.5-3.6 [facility] INNOBI [id number] 04:12:00 Test Item Value Reference Range Interpretation Comments Total CK (test code = Total CK) 49 12-191 [facility] INNOBI [id number] 04:12:00 Test Item Value Reference Range Interpretation Comments BNP (test code = BNP) 32 [facility] [id number] 04:12:00 Test Item Value Reference Range Interpretation Comments Globulin (test code = Globulin) 3.3 2.7-4.2 [facility] [id number] 04:12:00 Test Item Value Reference Range Interpretation Comments A/G Ratio (test code = A/G Ratio) 1.0 0.7-1.6 [facility] [id number] 04:12:00 Test Item Value Reference Range Interpretation Comments eGFR (test code = eGFR) 53 [facility] [id number] 04:12:00 Test Item Value Reference Range Interpretation Comments AST (test code = AST) 11 See_Comment [Auto mated message] The system which ge nerated this result transmit stuart reference range : <=37. The reference range was not used to interpr et this result as cherry l/abnormal. [facility] [id number] 04:12:00 Test Item Value Reference Range Interpretation Comments Alk Phos (test code = Alk Phos) 38 39-136 [facility] [id number] 04:12:00 Test Item Value Reference Range Interpretation Comments Bili Total (test code = Bili Total) 0.2 0.2-1.3 [facility] [id number] 04:12:00 Test Item Value Reference Range Interpretation Comments AGAP (test code = AGAP) 10.0 10.0-20.0 [facility] [id number] 04:12:00 Test Item Value Reference Range Interpretation Comments B/C Ratio (test code = B/C Ratio) 21 6-25 [facility]2016-11-27 04:12:00 Test Item Value Reference Range Interpretation Comments ALT (test code = ALT) 16 See_Comment [Auto mated message] The system which ge nerated this result transmit stuart reference range : <=65. The reference range was not used to interpr et this result as cherry l/abnormal. [facility]2016-11-27 04:12:00 Test Item Value Reference Range Interpretation Comments Albumin Lvl (test code = Albumin Lvl) 3.3 3.5-5.0 [facility]2016-11-27 04:12:00 Test Item Value Reference Range Interpretation Comments Calcium Lvl (test code = Calcium Lvl) 8.3 8.5-10.5 [facility]2016-11-27 04:12:00 Test Item Value Reference Range Interpretation Comments CO2 (test code = CO2) 34 24-32 [facility]2016-11-27 04:12:00 Test Item Value Reference Range Interpretation Comments Total Protein (test code = Total 6.6 6.4-8.4 Protein) [facility]2016-11-27 04:12:00 Test Item Value Reference Range Interpretation Comments Glucose Lvl (test code = Glucose Lvl) 161 70-99 [facility]2016-11-27 04:12:00 Test Item Value Reference Range Interpretation Comments Potassium Lvl (test code = Potassium 4.0 3.5-5.1 Lvl) [facility]2016-11-27 04:12:00 Test Item Value Reference Range Interpretation Comments Chloride Lvl (test code = Chloride Lvl) 99 95-109 [facility]2016-11-27 04:12:00 Test Item Value Reference Range Interpretation Comments Creatinine Lvl (test code = Creatinine 1.34 0.50-1.40 Lvl) [facility]2016-11-27 04:12:00 Test Item Value Reference Range Interpretation Comments BUN (test code = BUN) 28 7-22 [facility]2016-11-27 04:12:00 Test Item Value Reference Range Interpretation Comments Sodium Lvl (test code = Sodium Lvl) 139 135-145 [facility]BglkmbfCBUQARUCNM6129-73-58 04:12:00 Test Item Value Reference Range Interpretation Comments Basophils # (test code 0.1 See_Comment [Aut omated message] The = Basophils #) system which generated this result tra nsmitted reference range : <=0.2. The reference r jose alfredo was not used to int erpret this result as normal/abnormal . [facility] HospitalYokowdcWJRYUNEPWG2860-15-89 04:12:00 Test Item Value Reference Range Interpretation Comments Segs-Bands # (test code = Segs-Bands #) 5.2 1.5-8.1 [facility] HospitalAbgcdrnGILWZCXVKU9620-57-55 04:12:00 Test Item Value Reference Range Interpretation Comments Lymphocytes (test code = Lymphocytes) 22.2 20.0-40.0 [facility] HospitalQbxaqlpFFVWSKCAXT1749-87-01 04:12:00 Test Item Value Reference Range Interpretation Comments Monocytes (test code = Monocytes) 13.7 2.0-12.0 [facility] HospitalUzfptvxUGJZRXYBGR8738-79-57 04:12:00 Test Item Value Reference Range Interpretation Comments Eosinophils # (test code 0.2 See_Comment [A utomated message] The = Eosinophils #) system whic h generated this result tra nsmitted reference range : <=0.5. The reference r jose alfredo was not used to int erpret this result as normal/abnormal . [facility] HospitalQsspzmdFPHIREYUVP6968-70-10 04:12:00 Test Item Value Reference Range Interpretation Comments Lymphocytes # (test code = Lymphocytes 1.9 1.0-5.5 #) [facility] HospitalHvkigycMRPXGUDGFX0740-04-56 04:12:00 Test Item Value Reference Range Interpretation Comments Monocytes # (test code 1.2 See_Comment [Aut omated message] The = Monocytes #) system which generated this result tra nsmitted reference range : <=0.8. The reference r jose alfredo was not used to int erpret this result as normal/abnormal . [facility] HospitalLjdlnsrXXTFPSEGOK0930-04-00 04:12:00 Test Item Value Reference Range Interpretation Comments Segs (test code = Segs) 60.8 45.0-75.0 [facility] HospitalJqaftbvGSPWVOVGSM7375-22-56 04:12:00 Test Item Value Reference Range Interpretation Comments Eosinophils (test code = 2.7 See_Comment [A utomated message] The Eosinophils) system which ge nerated this result tra nsmitted reference range : <=4.0. The reference r jose alfredo was not used to int erpret this result as normal/abnormal . [facility] HospitalDojbvxwDEECQHECOC2550-49-17 04:12:00 Test Item Value Reference Range Interpretation Comments Basophils (test code = 0.6 See_Comment [Aut omated message] The Basophils) system which ge nerated this result tra nsmitted reference range : <=1.0. The reference r jose alrfedo was not used to int erpret this result as normal/abnormal . [facility] HospitalUtnznmoDDHSTOUKMZ8996-12-62 04:12:00 Test Item Value Reference Range Interpretation Comments PTT (test code = PTT) 26.5 s 22.9-35.8 [facility] HospitalDvvujteIINZVNOTJZ1363-59-50 04:12:00 Test Item Value Reference Range Interpretation Comments PT (test code = PT) 13.6 s 12.0-14.7 [facility] HospitalFuqpwfcYDPHKCEFLC4555-47-07 04:12:00 Test Item Value Reference Range Interpretation Comments INR (test code = INR) 1.02 0.85-1.17 [facility] HospitalImgxgkcQQNPNPBYAE2855-26-74 04:12:00 Test Item Value Reference Range Interpretation Comments Platelet (test code = Platelet) 181 133-450 [facility] HospitalCviraupFJFXJTQHET1249-48-37 04:12:00 Test Item Value Reference Range Interpretation Comments MPV (test code = MPV) 10.9 7.4-10.4 [facility] HospitalZvofrrjDCWUZGVWFS4628-50-65 04:12:00 Test Item Value Reference Range Interpretation Comments MCH (test code = MCH) 29.9 pg 27.0-31.0 [facility] HospitalHjapdzqTKCOAOSFRS9490-71-04 04:12:00 Test Item Value Reference Range Interpretation Comments MCHC (test code = MCHC) 33.2 32.0-36.0 [facility] HospitalVliujavTXKWIGCHJX8927-92-27 04:12:00 Test Item Value Reference Range Interpretation Comments MCV (test code = MCV) 90.2 80.0-94.0 [facility] HospitalOrddrczZBAPLMTQGG9214-69-78 04:12:00 Test Item Value Reference Range Interpretation Comments RDW (test code = RDW) 13.3 11.5-14.5 [facility] HospitalDdnftsqLHQPTBLVRN7524-29-01 04:12:00 Test Item Value Reference Range Interpretation Comments Hgb (test code = Hgb) 13.4 14.0-18.0 [facility] HospitalVvoidtcDRBWOKOHWY1283-33-13 04:12:00 Test Item Value Reference Range Interpretation Comments Hct (test code = Hct) 40.3 42.0-54.0 [facility] HospitalWlurhobLSTTYIMNJQ9367-34-60 04:12:00 Test Item Value Reference Range Interpretation Comments WBC (test code = WBC) 8.5 3.7-10.4 [facility] HospitalJbuhzneCVUAGYSERR5688-91-63 04:12:00 Test Item Value Reference Range Interpretation Comments RBC (test code = RBC) 4.47 4.70-6.10 [facility] AND [id number] 04:12:00 Test Item Value Reference Range Interpretation Comments UA Bacteria (test code = None Seen (07/27/16 UA Bacteria) 10:12 PM) [facility] AND [id number] 04:12:00 Test Item Value Reference Range Interpretation Comments UA WBC (test code = UA None Seen (07/27/16 WBC) 10:12 PM) [facility] AND [id number] 04:12:00 Test Item Value Reference Range Interpretation Comments UA RBC (test None Seen See_Comment [Automated mes moises] code = UA RBC) (07/27/16 10:12 The system which PM) generated this result transmitted ref erence range: <=2. The reference range was not used to int erpret this result as normal/abnormal . [facility] AND [id number] 04:12:00 Test Item Value Reference Range Interpretation Comments UA Sq Epi (test code = UA Sq Epi) Rare /LPF [facility] AND [id number] 04:12:00 Test Item Value Reference Range Interpretation Comments UA Nitrite (test code Negative (07/27/16 = UA Nitrite) 10:12 PM) [facility] AND [id number] 04:12:00 Test Item Value Reference Range Interpretation Comments UA Leuk Est (test Negative (07/27/16 10:12 code = UA Leuk Est) PM) [facility] AND [id number] 04:12:00 Test Item Value Reference Range Interpretation Comments UA Ketones (test code = UA Negative mg/dL Ketones) [facility] AND [id number] 04:12:00 Test Item Value Reference Range Interpretation Comments UA Bili (test code = Negative *NA*(07/27/16 UA Bili) 10:12 PM) [facility] [id number] 04:12:00 Test Item Value Reference Range Interpretation Comments UA Blood (test code = Negative (07/27/16 10:12 UA Blood) PM) [facility] [id number] 04:12:00 Test Item Value Reference Range Interpretation Comments UA Urobilinogen (test code = UA 0.2 0.1-1.0 Urobilinogen) [facility] AND [id number] 04:12:00 Test Item Value Reference Range Interpretation Comments UA Spec Grav (test code = UA Spec 1.010 1 Grav) [facility] AND [id number] 04:12:00 Test Item Value Reference Range Interpretation Comments UA Color (test code = Yellow *NA*(07/27/16 UA Color) 10:12 PM) [facility] AND [id number] 04:12:00 Test Item Value Reference Range Interpretation Comments UA Turbidity (test code = Clear (07/27/16 UA Turbidity) 10:12 PM) [facility] AND [id number] 04:12:00 Test Item Value Reference Range Interpretation Comments UA pH (test code = UA pH) 7.5 1 5.0-8.0 [facility] [id number] 04:12:00 Test Item Value Reference Range Interpretation Comments UA Protein (test code = UA Negative mg/dL Protein) [facility] AND [id number] 04:12:00 Test Item Value Reference Range Interpretation Comments UA Glucose (test code = UA Negative mg/dL Glucose) [facility] [id number] 04:12:00 Test Item Value Reference Range Interpretation Comments CK MB Index (test no gt See_Comment [Automate d message] The code = CK MB Index) system w [facility] generated this result transmit stuart reference range : <=2.5. The reference range was not used to interpr et this result as cherry l/abnormal. [facility] [id number] 04:12:00 Test Item Value Reference Range Interpretation Comments Troponin-I (test code no gt See_Comment [Auto mated message] The = Troponin-I) system which g enerated this result transmit stuart reference range : <=0.40. The reference r jose alfredo was not used to interpr et this result as cherry l/abnormal. [facility] [employer] MMRGKXG0397-03-89 04:12:00 Test Item Value Reference Range Interpretation Comments CK MB (test code = CK MB) no gt 0.5-3.6 [facility] [id number] 04:12:00 Test Item Value Reference Range Interpretation Comments Total CK (test code = Total CK) 49 12-191 [facility] [employer] VTQWSUW7868-68-51 04:12:00 Test Item Value Reference Range Interpretation Comments BNP (test code = BNP) 32 [facility] [id number] 04:12:00 Test Item Value Reference Range Interpretation Comments Globulin (test code = Globulin) 3.3 2.7-4.2 [facility] [id number] 04:12:00 Test Item Value Reference Range Interpretation Comments A/G Ratio (test code = A/G Ratio) 1.0 0.7-1.6 [facility] [id number] 04:12:00 Test Item Value Reference Range Interpretation Comments eGFR (test code = eGFR) 53 [facility] [id number] 04:12:00 Test Item Value Reference Range Interpretation Comments AST (test code = AST) 11 See_Comment [Auto mated message] The system which ge nerated this result transmit stuart reference range : <=37. The reference range was not used to interpr et this result as cherry l/abnormal. [facility] [id number] 04:12:00 Test Item Value Reference Range Interpretation Comments Alk Phos (test code = Alk Phos) 38 39-136 [facility] [id number] 04:12:00 Test Item Value Reference Range Interpretation Comments Bili Total (test code = Bili Total) 0.2 0.2-1.3 [facility] [id number] 04:12:00 Test Item Value Reference Range Interpretation Comments AGAP (test code = AGAP) 10.0 10.0-20.0 [facility] [id number] 04:12:00 Test Item Value Reference Range Interpretation Comments B/C Ratio (test code = B/C Ratio) 21 6-25 [facility]2016-11-27 04:12:00 Test Item Value Reference Range Interpretation Comments ALT (test code = ALT) 16 See_Comment [Auto mated message] The system which ge nerated this result transmit stuart reference range : <=65. The reference range was not used to interpr et this result as cherry l/abnormal. [facility]2016-11-27 04:12:00 Test Item Value Reference Range Interpretation Comments Albumin Lvl (test code = Albumin Lvl) 3.3 3.5-5.0 [facility]2016-11-27 04:12:00 Test Item Value Reference Range Interpretation Comments Calcium Lvl (test code = Calcium Lvl) 8.3 8.5-10.5 [place] [id number] 04:12:00 Test Item Value Reference Range Interpretation Comments CO2 (test code = CO2) 34 24-32 [facility]2016-11-27 04:12:00 Test Item Value Reference Range Interpretation Comments Total Protein (test code = Total 6.6 6.4-8.4 Protein) [facility]2016-11-27 04:12:00 Test Item Value Reference Range Interpretation Comments Glucose Lvl (test code = Glucose Lvl) 161 70-99 [facility]2016-11-27 04:12:00 Test Item Value Reference Range Interpretation Comments Potassium Lvl (test code = Potassium 4.0 3.5-5.1 Lvl) [facility]2016-11-27 04:12:00 Test Item Value Reference Range Interpretation Comments Chloride Lvl (test code = Chloride Lvl) 99 95-109 [facility]2016-11-27 04:12:00 Test Item Value Reference Range Interpretation Comments Creatinine Lvl (test code = Creatinine 1.34 0.50-1.40 Lvl) [facility]2016-11-27 04:12:00 Test Item Value Reference Range Interpretation Comments BUN (test code = BUN) 28 7-22 [facility]2016-11-27 04:12:00 Test Item Value Reference Range Interpretation Comments Sodium Lvl (test code = Sodium Lvl) 139 135-145 [place] [id number] 04:12:00 Test Item Value Reference Range Interpretation Comments Basophils # (test code 0.1 See_Comment [Aut omated message] The = Basophils #) system which generated this result tra nsmitted reference range : <=0.2. The reference r jose alfredo was not used to int erpret this result as normal/abnormal . [facility] HospitalIdzelgbCNGVLMAIKG9939-48-95 04:12:00 Test Item Value Reference Range Interpretation Comments Segs-Bands # (test code = Segs-Bands #) 5.2 1.5-8.1 [facility] HospitalEiwurseVPKESNXUMV3439-95-97 04:12:00 Test Item Value Reference Range Interpretation Comments Lymphocytes (test code = Lymphocytes) 22.2 20.0-40.0 [facility] HospitalYtmrnuqYWNTMOXJLA8357-92-13 04:12:00 Test Item Value Reference Range Interpretation Comments Monocytes (test code = Monocytes) 13.7 2.0-12.0 [facility] HospitalNmsogpwISOCFNAJSE8797-82-60 04:12:00 Test Item Value Reference Range Interpretation Comments Eosinophils # (test code 0.2 See_Comment [A utomated message] The = Eosinophils #) system whic h generated this result tra nsmitted reference range : <=0.5. The reference r jose alfredo was not used to int erpret this result as normal/abnormal . [facility] HospitalEixjflqAAZHZETAIE7148-59-35 04:12:00 Test Item Value Reference Range Interpretation Comments Lymphocytes # (test code = Lymphocytes 1.9 1.0-5.5 #) [facility] HospitalLzepzlxQOSOVOZTJB1608-89-27 04:12:00 Test Item Value Reference Range Interpretation Comments Monocytes # (test code 1.2 See_Comment [Aut omated message] The = Monocytes #) system which generated this result tra nsmitted reference range : <=0.8. The reference r jose alfredo was not used to int erpret this result as normal/abnormal . [facility] HospitalAiyrzpoHILMWPPHUQ1806-62-16 04:12:00 Test Item Value Reference Range Interpretation Comments Segs (test code = Segs) 60.8 45.0-75.0 [facility] HospitalRguhzygGWIDGEHNYE8232-47-73 04:12:00 Test Item Value Reference Range Interpretation Comments Eosinophils (test code = 2.7 See_Comment [A utomated message] The Eosinophils) system which ge nerated this result tra nsmitted reference range : <=4.0. The reference r jose alfredo was not used to int erpret this result as normal/abnormal . [facility] HospitalCrmylhqVUJECDJMAS0468-54-10 04:12:00 Test Item Value Reference Range Interpretation Comments Basophils (test code = 0.6 See_Comment [Aut omated message] The Basophils) system which ge nerated this result tra nsmitted reference range : <=1.0. The reference r jose alfredo was not used to int erpret this result as normal/abnormal . [facility] HospitalGgxlfcnKMJWGRDGFS0890-85-94 04:12:00 Test Item Value Reference Range Interpretation Comments PTT (test code = PTT) 26.5 s 22.9-35.8 [facility] HospitalJwkurymMYNHDRRQDU7676-15-35 04:12:00 Test Item Value Reference Range Interpretation Comments PT (test code = PT) 13.6 s 12.0-14.7 [facility] HospitalBecqrocQWTDRABCNB3788-86-02 04:12:00 Test Item Value Reference Range Interpretation Comments INR (test code = INR) 1.02 0.85-1.17 [facility] HospitalHvuuustOXRWLUWCVZ2755-21-78 04:12:00 Test Item Value Reference Range Interpretation Comments Platelet (test code = Platelet) 181 133-450 [facility] HospitalYcignirVFNCYVKQUY7353-84-90 04:12:00 Test Item Value Reference Range Interpretation Comments MPV (test code = MPV) 10.9 7.4-10.4 [facility] HospitalGvekazwNADEMWZUNR4765-61-48 04:12:00 Test Item Value Reference Range Interpretation Comments MCH (test code = MCH) 29.9 pg 27.0-31.0 [facility] HospitalJpbqzmqPDWCQCRWZC8864-07-22 04:12:00 Test Item Value Reference Range Interpretation Comments MCHC (test code = MCHC) 33.2 32.0-36.0 [facility] HospitalKgcgupuZFAOEOZCNQ1114-99-32 04:12:00 Test Item Value Reference Range Interpretation Comments MCV (test code = MCV) 90.2 80.0-94.0 [facility] HospitalTbtnwmvVDVPMIEUKE6359-38-88 04:12:00 Test Item Value Reference Range Interpretation Comments RDW (test code = RDW) 13.3 11.5-14.5 [facility] HospitalGpqxvjeXCAPZUASOY2761-29-37 04:12:00 Test Item Value Reference Range Interpretation Comments Hgb (test code = Hgb) 13.4 14.0-18.0 [facility] HospitalPzbwjtiEYAKWMLYKW7568-34-97 04:12:00 Test Item Value Reference Range Interpretation Comments Hct (test code = Hct) 40.3 42.0-54.0 [facility] HospitalUcupbwzKTRTUFKZVY7211-47-99 04:12:00 Test Item Value Reference Range Interpretation Comments WBC (test code = WBC) 8.5 3.7-10.4 [facility] HospitalDytbiyhUYVOCQLUUR6859-86-15 04:12:00 Test Item Value Reference Range Interpretation Comments RBC (test code = RBC) 4.47 4.70-6.10 [facility] AND [id number] 04:12:00 Test Item Value Reference Range Interpretation Comments UA Bacteria (test code = None Seen (07/27/16 UA Bacteria) 10:12 PM) [facility] AND [id number] 04:12:00 Test Item Value Reference Range Interpretation Comments UA WBC (test code = UA None Seen (07/27/16 WBC) 10:12 PM) [facility] AND [id number] 04:12:00 Test Item Value Reference Range Interpretation Comments UA RBC (test None Seen See_Comment [Automated mes moises] code = UA RBC) (07/27/16 10:12 The system which PM) generated this result transmitted ref erence range: <=2. The reference range was not used to int erpret this result as normal/abnormal . [facility] AND [id number] 04:12:00 Test Item Value Reference Range Interpretation Comments UA Sq Epi (test code = UA Sq Epi) Rare /LPF [facility] AND [id number] 04:12:00 Test Item Value Reference Range Interpretation Comments UA Nitrite (test code Negative (07/27/16 = UA Nitrite) 10:12 PM) [facility] AND [id number] 04:12:00 Test Item Value Reference Range Interpretation Comments UA Leuk Est (test Negative (07/27/16 10:12 code = UA Leuk Est) PM) [facility] AND [id number] 04:12:00 Test Item Value Reference Range Interpretation Comments UA Ketones (test code = UA Negative mg/dL Ketones) [facility] AND [id number] 04:12:00 Test Item Value Reference Range Interpretation Comments UA Bili (test code = Negative *NA*(07/27/16 UA Bili) 10:12 PM) [facility] [id number] 04:12:00 Test Item Value Reference Range Interpretation Comments UA Blood (test code = Negative (07/27/16 10:12 UA Blood) PM) [facility] [id number] 04:12:00 Test Item Value Reference Range Interpretation Comments UA Urobilinogen (test code = UA 0.2 0.1-1.0 Urobilinogen) [facility] [id number] 04:12:00 Test Item Value Reference Range Interpretation Comments UA Spec Grav (test code = UA Spec 1.010 1 Grav) [facility] AND [id number] 04:12:00 Test Item Value Reference Range Interpretation Comments UA Color (test code = Yellow *NA*(07/27/16 UA Color) 10:12 PM) [facility] [id number] 04:12:00 Test Item Value Reference Range Interpretation Comments UA Turbidity (test code = Clear (07/27/16 UA Turbidity) 10:12 PM) [facility] [id number] 04:12:00 Test Item Value Reference Range Interpretation Comments UA pH (test code = UA pH) 7.5 1 5.0-8.0 [facility] [id number] 04:12:00 Test Item Value Reference Range Interpretation Comments UA Protein (test code = UA Negative mg/dL Protein) [facility] AND [id number] 04:12:00 Test Item Value Reference Range Interpretation Comments UA Glucose (test code = UA Negative mg/dL Glucose) [facility] [id number] 04:12:00 Test Item Value Reference Range Interpretation Comments CK MB Index (test no gt See_Comment [Automate d message] The code = CK MB Index) system w [facility] generated this result transmit stuart reference range : <=2.5. The reference range was not used to interpr et this result as cherry l/abnormal. [facility] GGBEYMB9795-72-39 04:12:00 Test Item Value Reference Range Interpretation Comments Troponin-I (test code no gt See_Comment [Auto mated message] The = Troponin-I) system which g enerated this result transmit stuart reference range : <=0.40. The reference r jose alfredo was not used to interpr et this result as cherry l/abnormal. [employer] [id number] 04:12:00 Test Item Value Reference Range Interpretation Comments CK MB (test code = CK MB) no gt 0.5-3.6 [facility] [id number] 04:12:00 Test Item Value Reference Range Interpretation Comments Total CK (test code = Total CK) 49 12-191 [employer] [id number] 04:12:00 Test Item Value Reference Range Interpretation Comments BNP (test code = BNP) 32 [facility] KLFGK1626-07-12 04:12:00 Test Item Value Reference Range Interpretation Comments Globulin (test code = Globulin) 3.3 2.7-4.2 [facility] [id number] 04:12:00 Test Item Value Reference Range Interpretation Comments A/G Ratio (test code = A/G Ratio) 1.0 0.7-1.6 [employer] [id number] 04:12:00 Test Item Value Reference Range Interpretation Comments eGFR (test code = eGFR) 53 [facility] [id number] 04:12:00 Test Item Value Reference Range Interpretation Comments AST (test code = AST) 11 See_Comment [Auto mated message] The system which ge nerated this result transmit stuart reference range : <=37. The reference range was not used to interpr et this result as cherry l/abnormal. [employer] [id number] 04:12:00 Test Item Value Reference Range Interpretation Comments Alk Phos (test code = Alk Phos) 38 39-136 [employer] [id number] 04:12:00 Test Item Value Reference Range Interpretation Comments Bili Total (test code = Bili Total) 0.2 0.2-1.3 [facility] vozero2016-11-27 04:12:00 Test Item Value Reference Range Interpretation Comments AGAP (test code = AGAP) 10.0 10.0-20.0 [facility] [id number] 04:12:00 Test Item Value Reference Range Interpretation Comments B/C Ratio (test code = B/C Ratio) 21 6-25 [facility]2016-11-27 04:12:00 Test Item Value Reference Range Interpretation Comments ALT (test code = ALT) 16 See_Comment [Auto mated message] The system which ge nerated this result transmit stuart reference range : <=65. The reference range was not used to interpr et this result as cherry l/abnormal. [facility]2016-11-27 04:12:00 Test Item Value Reference Range Interpretation Comments Albumin Lvl (test code = Albumin Lvl) 3.3 3.5-5.0 [facility]2016-11-27 04:12:00 Test Item Value Reference Range Interpretation Comments Calcium Lvl (test code = Calcium Lvl) 8.3 8.5-10.5 [facility]2016-11-27 04:12:00 Test Item Value Reference Range Interpretation Comments CO2 (test code = CO2) 34 24-32 [facility]2016-11-27 04:12:00 Test Item Value Reference Range Interpretation Comments Total Protein (test code = Total 6.6 6.4-8.4 Protein) [facility]2016-11-27 04:12:00 Test Item Value Reference Range Interpretation Comments Glucose Lvl (test code = Glucose Lvl) 161 70-99 [facility]2016-11-27 04:12:00 Test Item Value Reference Range Interpretation Comments Potassium Lvl (test code = Potassium 4.0 3.5-5.1 Lvl) [facility]2016-11-27 04:12:00 Test Item Value Reference Range Interpretation Comments Chloride Lvl (test code = Chloride Lvl) 99 95-109 [facility]2016-11-27 04:12:00 Test Item Value Reference Range Interpretation Comments Creatinine Lvl (test code = Creatinine 1.34 0.50-1.40 Lvl) [facility]2016-11-27 04:12:00 Test Item Value Reference Range Interpretation Comments BUN (test code = BUN) 28 7-22 [facility]2016-11-27 04:12:00 Test Item Value Reference Range Interpretation Comments Sodium Lvl (test code = Sodium Lvl) 139 135-145 [facility] HospitalRaqkhplSOOGCVCAAH7918-95-14 04:12:00 Test Item Value Reference Range Interpretation Comments Basophils # (test code 0.1 See_Comment [Aut omated message] The = Basophils #) system which generated this result tra nsmitted reference range : <=0.2. The reference r jose alfredo was not used to int erpret this result as normal/abnormal . [facility] HospitalTuznxgaGWYAHOHZFP0210-14-82 04:12:00 Test Item Value Reference Range Interpretation Comments Segs-Bands # (test code = Segs-Bands #) 5.2 1.5-8.1 [facility] HospitalChdurmzLKINZYJTVD6975-83-33 04:12:00 Test Item Value Reference Range Interpretation Comments Lymphocytes (test code = Lymphocytes) 22.2 20.0-40.0 [facility] HospitalUbqwsyfWGKRTHEBZE1024-18-53 04:12:00 Test Item Value Reference Range Interpretation Comments Monocytes (test code = Monocytes) 13.7 2.0-12.0 [facility] HospitalMfelcfbXCIQNLHUEL4946-89-10 04:12:00 Test Item Value Reference Range Interpretation Comments Eosinophils # (test code 0.2 See_Comment [A utomated message] The = Eosinophils #) system whic h generated this result tra nsmitted reference range : <=0.5. The reference r jose alfredo was not used to int erpret this result as normal/abnormal . [facility] HospitalRsavbkbFGICWPOIBJ1351-33-11 04:12:00 Test Item Value Reference Range Interpretation Comments Lymphocytes # (test code = Lymphocytes 1.9 1.0-5.5 #) [facility] HospitalPpaqmqsYJYCBYMIRP2863-60-29 04:12:00 Test Item Value Reference Range Interpretation Comments Monocytes # (test code 1.2 See_Comment [Aut omated message] The = Monocytes #) system which generated this result tra nsmitted reference range : <=0.8. The reference r jose alfredo was not used to int erpret this result as normal/abnormal . [facility] HospitalFfprmyoWYMMLWARQQ0785-51-36 04:12:00 Test Item Value Reference Range Interpretation Comments Segs (test code = Segs) 60.8 45.0-75.0 [facility] HospitalMqdyrnyNUCXFLKPBS4376-19-95 04:12:00 Test Item Value Reference Range Interpretation Comments Eosinophils (test code = 2.7 See_Comment [A utomated message] The Eosinophils) system which ge nerated this result tra nsmitted reference range : <=4.0. The reference r jose alfredo was not used to int erpret this result as normal/abnormal . [facility] HospitalTfjkykvOFIFRRSKSZ3757-40-34 04:12:00 Test Item Value Reference Range Interpretation Comments Basophils (test code = 0.6 See_Comment [Aut omated message] The Basophils) system which ge nerated this result tra nsmitted reference range : <=1.0. The reference r jose alfredo was not used to int erpret this result as normal/abnormal . [facility] HospitalTjpedxpFIHSCFPJDZ6291-92-35 04:12:00 Test Item Value Reference Range Interpretation Comments PTT (test code = PTT) 26.5 s 22.9-35.8 [facility] HospitalTpuygbhTIWZPSRVAJ6548-48-79 04:12:00 Test Item Value Reference Range Interpretation Comments PT (test code = PT) 13.6 s 12.0-14.7 [facility] HospitalUzbrfxyNCOTQWEQTI9983-01-42 04:12:00 Test Item Value Reference Range Interpretation Comments INR (test code = INR) 1.02 0.85-1.17 [facility] HospitalImimvzvDIGSFUDULR9018-69-67 04:12:00 Test Item Value Reference Range Interpretation Comments Platelet (test code = Platelet) 181 133-450 [facility] HospitalWxyvsaxTEXDXPOXFG7581-29-53 04:12:00 Test Item Value Reference Range Interpretation Comments MPV (test code = MPV) 10.9 7.4-10.4 [facility] HospitalFblcaxcOCMKOTJBGK6751-91-43 04:12:00 Test Item Value Reference Range Interpretation Comments MCH (test code = MCH) 29.9 pg 27.0-31.0 [facility] HospitalGzvsqsnDMXKENRLWH5052-68-44 04:12:00 Test Item Value Reference Range Interpretation Comments MCHC (test code = MCHC) 33.2 32.0-36.0 [facility] HospitalKhaoexeCLMAURVRZN1963-47-22 04:12:00 Test Item Value Reference Range Interpretation Comments MCV (test code = MCV) 90.2 80.0-94.0 [facility] HospitalEkkrsipSOWXPPPRMU7516-56-19 04:12:00 Test Item Value Reference Range Interpretation Comments RDW (test code = RDW) 13.3 11.5-14.5 [facility] HospitalYyeohekKLBEHODUID0612-43-47 04:12:00 Test Item Value Reference Range Interpretation Comments Hgb (test code = Hgb) 13.4 14.0-18.0 [facility] HospitalPykaozlQIZXKFEYFO4615-25-59 04:12:00 Test Item Value Reference Range Interpretation Comments Hct (test code = Hct) 40.3 42.0-54.0 [facility] HospitalWvdctrcAKPZDBESJM2268-00-62 04:12:00 Test Item Value Reference Range Interpretation Comments WBC (test code = WBC) 8.5 3.7-10.4 [facility] HospitalZobdsflKCUBRUOXVJ4502-28-75 04:12:00 Test Item Value Reference Range Interpretation Comments RBC (test code = RBC) 4.47 4.70-6.10 [facility] AND [id number] 04:12:00 Test Item Value Reference Range Interpretation Comments UA Bacteria (test code = None Seen (07/27/16 UA Bacteria) 10:12 PM) [facility] AND [id number] 04:12:00 Test Item Value Reference Range Interpretation Comments UA WBC (test code = UA None Seen (07/27/16 WBC) 10:12 PM) [facility] AND [id number] 04:12:00 Test Item Value Reference Range Interpretation Comments UA RBC (test None Seen See_Comment [Automated mes moises] code = UA RBC) (07/27/16 10:12 The system which PM) generated this result transmitted ref erence range: <=2. The reference range was not used to int erpret this result as normal/abnormal . [facility] AND [id number] 04:12:00 Test Item Value Reference Range Interpretation Comments UA Sq Epi (test code = UA Sq Epi) Rare /LPF [facility] AND [id number] 04:12:00 Test Item Value Reference Range Interpretation Comments UA Nitrite (test code Negative (07/27/16 = UA Nitrite) 10:12 PM) [facility] AND [id number] 04:12:00 Test Item Value Reference Range Interpretation Comments UA Leuk Est (test Negative (07/27/16 10:12 code = UA Leuk Est) PM) [facility] AND [id number] 04:12:00 Test Item Value Reference Range Interpretation Comments UA Ketones (test code = UA Negative mg/dL Ketones) [facility] AND [id number] 04:12:00 Test Item Value Reference Range Interpretation Comments UA Bili (test code = Negative *NA*(07/27/16 UA Bili) 10:12 PM) [facility] [id number] 04:12:00 Test Item Value Reference Range Interpretation Comments UA Blood (test code = Negative (07/27/16 10:12 UA Blood) PM) [facility] [id number] 04:12:00 Test Item Value Reference Range Interpretation Comments UA Urobilinogen (test code = UA 0.2 0.1-1.0 Urobilinogen) [facility] [id number] 04:12:00 Test Item Value Reference Range Interpretation Comments UA Spec Grav (test code = UA Spec 1.010 1 Grav) [facility] AND [id number] 04:12:00 Test Item Value Reference Range Interpretation Comments UA Color (test code = Yellow *NA*(07/27/16 UA Color) 10:12 PM) [facility] [id number] 04:12:00 Test Item Value Reference Range Interpretation Comments UA Turbidity (test code = Clear (07/27/16 UA Turbidity) 10:12 PM) [facility] AND [id number] 04:12:00 Test Item Value Reference Range Interpretation Comments UA pH (test code = UA pH) 7.5 1 5.0-8.0 [facility] [id number] 04:12:00 Test Item Value Reference Range Interpretation Comments UA Protein (test code = UA Negative mg/dL Protein) [facility] [id number] 04:12:00 Test Item Value Reference Range Interpretation Comments UA Glucose (test code = UA Negative mg/dL Glucose) [facility] AND [id number] 16:03:00 Test Item Value Reference Range Interpretation Comments UA Leuk Est (test Negative (05/30/16 11:03 code = UA Leuk Est) AM) [facility] [id number] 16:03:00 Test Item Value Reference Range Interpretation Comments UA Turbidity (test code = Clear (05/30/16 11:03 UA Turbidity) AM) [facility] [id number] 16:03:00 Test Item Value Reference Range Interpretation Comments UA Nitrite (test code Negative (05/30/16 11:03 = UA Nitrite) AM) [facility] AND [id number] 16:03:00 Test Item Value Reference Range Interpretation Comments UA Urobilinogen (test code = UA 0.2 0.1-1.0 Urobilinogen) [facility] AND [id number] 16:03:00 Test Item Value Reference Range Interpretation Comments UA Spec Grav (test code = UA Spec 1.015 1 Grav) [facility] AND [id number] 16:03:00 Test Item Value Reference Range Interpretation Comments UA pH (test code = UA pH) 6.0 1 5.0-8.0 [facility] AND [id number] 16:03:00 Test Item Value Reference Range Interpretation Comments UA Protein (test code Negative (05/30/16 11:03 = UA Protein) AM) [facility] AND [id number] 16:03:00 Test Item Value Reference Range Interpretation Comments UA Color (test code = Yellow *NA*(05/30/16 UA Color) 11:03 AM) [facility] AND [id number] 16:03:00 Test Item Value Reference Range Interpretation Comments UA Ketones (test code Negative *NA*(05/30/16 = UA Ketones) 11:03 AM) [facility] AND [id number] 16:03:00 Test Item Value Reference Range Interpretation Comments UA Glucose (test code Negative (05/30/16 11:03 = UA Glucose) AM) [facility] AND [id number] 16:03:00 Test Item Value Reference Range Interpretation Comments UA Blood (test code = Moderate *ABN*(05/30/16 UA Blood) 11:03 AM) [facility] AND [id number] 16:03:00 Test Item Value Reference Range Interpretation Comments UA Bili (test code = Negative *NA*(05/30/16 UA Bili) 11:03 AM) [facility] AND [id number] 16:03:00 Test Item Value Reference Range Interpretation Comments UA Sq Epi (test code = UA Sq Epi) Rare /LPF [facility] AND [id number] 16:03:00 Test Item Value Reference Range Interpretation Comments Micro? (test code = Performed (05/30/16 11:03 Micro?) AM) [facility] AND [id number] 16:03:00 Test Item Value Reference Range Interpretation Comments UA WBC (test code = UA None Seen (05/30/16 WBC) 11:03 AM) [facility] AND [id number] 16:03:00 Test Item Value Reference Range Interpretation Comments UA RBC (test None Seen See_Comment [Automated mes moises] code = UA RBC) (05/30/16 11:03 The system which AM) generated this result transmitted ref erence range: <=2. The reference range was not used to int erpret this result as normal/abnormal . [facility] AND [id number] 16:03:00 Test Item Value Reference Range Interpretation Comments UA Bacteria (test code = None Seen (05/30/16 UA Bacteria) 11:03 AM) [facility] AND [id number] 16:03:00 Test Item Value Reference Range Interpretation Comments UA Leuk Est (test Negative (05/30/16 11:03 code = UA Leuk Est) AM) [facility] AND [id number] 16:03:00 Test Item Value Reference Range Interpretation Comments UA Turbidity (test code = Clear (05/30/16 11:03 UA Turbidity) AM) [facility] AND [id number] 16:03:00 Test Item Value Reference Range Interpretation Comments UA Nitrite (test code Negative (05/30/16 11:03 = UA Nitrite) AM) [facility] AND [id number] 16:03:00 Test Item Value Reference Range Interpretation Comments UA Urobilinogen (test code = UA 0.2 0.1-1.0 Urobilinogen) [facility] AND [id number] 16:03:00 Test Item Value Reference Range Interpretation Comments UA Spec Grav (test code = UA Spec 1.015 1 Grav) [facility] AND [id number] 16:03:00 Test Item Value Reference Range Interpretation Comments UA pH (test code = UA pH) 6.0 1 5.0-8.0 [facility] AND [id number] 16:03:00 Test Item Value Reference Range Interpretation Comments UA Protein (test code Negative (05/30/16 11:03 = UA Protein) AM) [facility] AND [id number] 16:03:00 Test Item Value Reference Range Interpretation Comments UA Color (test code = Yellow *NA*(05/30/16 UA Color) 11:03 AM) [facility] AND [id number] 16:03:00 Test Item Value Reference Range Interpretation Comments UA Ketones (test code Negative *NA*(05/30/16 = UA Ketones) 11:03 AM) [facility] AND [id number] 16:03:00 Test Item Value Reference Range Interpretation Comments UA Glucose (test code Negative (05/30/16 11:03 = UA Glucose) AM) [facility] AND [id number] 16:03:00 Test Item Value Reference Range Interpretation Comments UA Blood (test code = Moderate *ABN*(05/30/16 UA Blood) 11:03 AM) [facility] AND [id number] 16:03:00 Test Item Value Reference Range Interpretation Comments UA Bili (test code = Negative *NA*(05/30/16 UA Bili) 11:03 AM) [facility] AND [id number] 16:03:00 Test Item Value Reference Range Interpretation Comments UA Sq Epi (test code = UA Sq Epi) Rare /LPF [facility] AND [id number] 16:03:00 Test Item Value Reference Range Interpretation Comments Micro? (test code = Performed (05/30/16 11:03 Micro?) AM) [facility] AND [id number] 16:03:00 Test Item Value Reference Range Interpretation Comments UA WBC (test code = UA None Seen (05/30/16 WBC) 11:03 AM) [facility] AND [id number] 16:03:00 Test Item Value Reference Range Interpretation Comments UA RBC (test None Seen See_Comment [Automated mes moises] code = UA RBC) (05/30/16 11:03 The system which AM) generated this result transmitted ref erence range: <=2. The reference range was not used to int erpret this result as normal/abnormal . [facility] AND [id number] 16:03:00 Test Item Value Reference Range Interpretation Comments UA Bacteria (test code = None Seen (05/30/16 UA Bacteria) 11:03 AM) [facility] AND [id number] 16:03:00 Test Item Value Reference Range Interpretation Comments UA Leuk Est (test Negative (05/30/16 11:03 code = UA Leuk Est) AM) [facility] AND [id number] 16:03:00 Test Item Value Reference Range Interpretation Comments UA Turbidity (test code = Clear (05/30/16 11:03 UA Turbidity) AM) [facility] AND [id number] 16:03:00 Test Item Value Reference Range Interpretation Comments UA Nitrite (test code Negative (05/30/16 11:03 = UA Nitrite) AM) [facility] AND [id number] 16:03:00 Test Item Value Reference Range Interpretation Comments UA Urobilinogen (test code = UA 0.2 0.1-1.0 Urobilinogen) [facility] AND [id number] 16:03:00 Test Item Value Reference Range Interpretation Comments UA Spec Grav (test code = UA Spec 1.015 1 Grav) [facility] AND [id number] 16:03:00 Test Item Value Reference Range Interpretation Comments UA pH (test code = UA pH) 6.0 1 5.0-8.0 [facility] AND [id number] 16:03:00 Test Item Value Reference Range Interpretation Comments UA Protein (test code Negative (05/30/16 11:03 = UA Protein) AM) [facility] AND [id number] 16:03:00 Test Item Value Reference Range Interpretation Comments UA Color (test code = Yellow *NA*(05/30/16 UA Color) 11:03 AM) [facility] AND [id number] 16:03:00 Test Item Value Reference Range Interpretation Comments UA Ketones (test code Negative *NA*(05/30/16 = UA Ketones) 11:03 AM) [facility] AND [id number] 16:03:00 Test Item Value Reference Range Interpretation Comments UA Glucose (test code Negative (05/30/16 11:03 = UA Glucose) AM) [facility] AND [id number] 16:03:00 Test Item Value Reference Range Interpretation Comments UA Blood (test code = Moderate *ABN*(05/30/16 UA Blood) 11:03 AM) [facility] [id number] 16:03:00 Test Item Value Reference Range Interpretation Comments UA Bili (test code = Negative *NA*(05/30/16 UA Bili) 11:03 AM) [facility] [id number] 16:03:00 Test Item Value Reference Range Interpretation Comments UA Sq Epi (test code = UA Sq Epi) Rare /LPF [facility] [id number] 16:03:00 Test Item Value Reference Range Interpretation Comments Micro? (test code = Performed (05/30/16 11:03 Micro?) AM) [facility] [id number] 16:03:00 Test Item Value Reference Range Interpretation Comments UA WBC (test code = UA None Seen (05/30/16 WBC) 11:03 AM) [facility] [id number] 16:03:00 Test Item Value Reference Range Interpretation Comments UA RBC (test None Seen See_Comment [Automated mes moises] code = UA RBC) (05/30/16 11:03 The system which AM) generated this result transmitted ref erence range: <=2. The reference range was not used to int erpret this result as normal/abnormal . [facility] [id number] 16:03:00 Test Item Value Reference Range Interpretation Comments UA Bacteria (test code = None Seen (05/30/16 UA Bacteria) 11:03 AM) [facility] [id number] 15:14:00 Test Item Value Reference Range Interpretation Comments Troponin-I (test code no gt See_Comment [Auto mated message] The = Troponin-I) system which g enerated this result transmit stuart reference range : <=0.40. The reference r jose alfredo was not used to interpr et this result as cherry l/abnormal. [facility] [id number] 15:14:00 Test Item Value Reference Range Interpretation Comments BNP (test code = BNP) 32 [facility] [id number] 15:14:00 Test Item Value Reference Range Interpretation Comments Total CK (test code = Total CK) 64 12-191 [facility] [id number] 15:14:00 Test Item Value Reference Range Interpretation Comments Lipase Lvl (test code = Lipase Lvl) 201 73-393 [facility]LczhmzgNTBTEWIJFKMP0085-55-14 15:14:00 Test Item Value Reference Range Interpretation Comments AGAP (test code = AGAP) 9.2 10.0-20.0 [facility] Hos[id number] 15:14:00 Test Item Value Reference Range Interpretation Comments B/C Ratio (test code = B/C Ratio) 20 6-25 [facility] Hospital[id number] 15:14:00 Test Item Value Reference Range Interpretation Comments Globulin (test code = Globulin) 3.8 2.7-4.2 [facility] Hospital[id number] 15:14:00 Test Item Value Reference Range Interpretation Comments A/G Ratio (test code = A/G Ratio) 0.9 0.7-1.6 [facility] HospitalFvkotdzELVAABCDJHSJ6666-73-63 15:14:00 Test Item Value Reference Range Interpretation Comments eGFR (test code = eGFR) 49 [facility] HospitalAttpkciTNUTZFUZFAMF8576-66-30 15:14:00 Test Item Value Reference Range Interpretation Comments Albumin Lvl (test code = Albumin Lvl) 3.6 3.5-5.0 [facility] HospitalAwchrkoQVCOYAZMXIJX7373-27-29 15:14:00 Test Item Value Reference Range Interpretation Comments ALT (test code = ALT) 20 See_Comment [Auto mated message] The system which ge nerated this result transmit stuart reference range : <=65. The reference range was not used to interpr et this result as cherry l/abnormal. [facility] HospitalBggxtfhTDYRKVVZNHUC2736-82-03 15:14:00 Test Item Value Reference Range Interpretation Comments Alk Phos (test code = Alk Phos) 37 39-136 [facility] HospitalVbrsynkBCMTLXRRYFTE6740-94-45 15:14:00 Test Item Value Reference Range Interpretation Comments AST (test code = AST) 14 See_Comment [Auto mated message] The system which ge nerated this result transmit stuart reference range : <=37. The reference range was not used to interpr et this result as cherry l/abnormal. [facility] HospitalSnatxptNDPTBMCOLXGG2400-81-49 15:14:00 Test Item Value Reference Range Interpretation Comments Bili Total (test code = Bili Total) 0.3 0.2-1.3 [facility] HospitalDibnykzCSJFQDARTWLH6882-69-52 15:14:00 Test Item Value Reference Range Interpretation Comments Sodium Lvl (test code = Sodium Lvl) 143 135-145 [facility] HospitalZldcryjGPDASXSWMUUG4300-48-35 15:14:00 Test Item Value Reference Range Interpretation Comments Creatinine Lvl (test code = Creatinine 1.42 0.50-1.40 Lvl) [facility] HospitalNvlprakJDTAMLFSVBLF0739-20-88 15:14:00 Test Item Value Reference Range Interpretation Comments Potassium Lvl (test code = Potassium 4.2 3.5-5.1 Lvl) [facility] HospitalYfwrzppOKWYMILEMJHD0623-36-46 15:14:00 Test Item Value Reference Range Interpretation Comments Chloride Lvl (test code = Chloride Lvl) 103 95-109 [facility] HospitalKvyjgqqRKSYBFOZBNWY9020-32-53 15:14:00 Test Item Value Reference Range Interpretation Comments Calcium Lvl (test code = Calcium Lvl) 8.9 8.5-10.5 [facility] HospitalEuoztbnBNWLBQYBCVDG5075-59-04 15:14:00 Test Item Value Reference Range Interpretation Comments CO2 (test code = CO2) 35 24-32 [facility] HospitalPzjupjsAUGEQSDJJQBH3230-72-89 15:14:00 Test Item Value Reference Range Interpretation Comments Total Protein (test code = Total 7.4 6.4-8.4 Protein) [facility] HospitalMnbzhubXKXLXBSKZGEL9531-40-05 15:14:00 Test Item Value Reference Range Interpretation Comments BUN (test code = BUN) 28 7-22 [facility] HospitalJerppshPHHKWSNDCPNN7048-53-49 15:14:00 Test Item Value Reference Range Interpretation Comments Glucose Lvl (test code = Glucose Lvl) 141 70-99 [facility] HospitalNjcecleZTUFEXLNHP2913-45-60 15:14:00 Test Item Value Reference Range Interpretation Comments Basophils # (test code 0.1 See_Comment [Aut omated message] The = Basophils #) system which generated this result tra nsmitted reference range : <=0.2. The reference r jose alfredo was not used to int erpret this result as normal/abnormal . [facility] HospitalLeatehdDOSWIOLGES2347-88-52 15:14:00 Test Item Value Reference Range Interpretation Comments Lymphocytes # (test code = Lymphocytes 1.3 1.0-5.5 #) [facility] HospitalCvdymvvZCBAXOIEUW2903-66-64 15:14:00 Test Item Value Reference Range Interpretation Comments Monocytes # (test code 1.1 See_Comment [Aut omated message] The = Monocytes #) system which generated this result tra nsmitted reference range : <=0.8. The reference r jose alfredo was not used to int erpret this result as normal/abnormal . [facility] HospitalOuqirnpRFZVUIMPQC6187-13-41 15:14:00 Test Item Value Reference Range Interpretation Comments Eosinophils # (test code 0.1 See_Comment [A utomated message] The = Eosinophils #) system whic h generated this result tra nsmitted reference range : <=0.5. The reference r jose alfredo was not used to int erpret this result as normal/abnormal . [facility] HospitalNtilhmhENHHCFUPDM0503-38-13 15:14:00 Test Item Value Reference Range Interpretation Comments Segs-Bands # (test code = Segs-Bands #) 4.4 1.5-8.1 [facility] HospitalNygysgsAQERILNJIE5741-52-14 15:14:00 Test Item Value Reference Range Interpretation Comments Basophils (test code = 0.9 See_Comment [Aut omated message] The Basophils) system which ge nerated this result tra nsmitted reference range : <=1.0. The reference r jose alfredo was not used to int erpret this result as normal/abnormal . [facility] HospitalEhbchnuUPLNVYBOCU7117-10-93 15:14:00 Test Item Value Reference Range Interpretation Comments Monocytes (test code = Monocytes) 15.3 2.0-12.0 [facility] HospitalQbyahldVAWBYIHCFM1632-29-79 15:14:00 Test Item Value Reference Range Interpretation Comments Eosinophils (test code = 2.1 See_Comment [A utomated message] The Eosinophils) system which ge nerated this result tra nsmitted reference range : <=4.0. The reference r jose alfredo was not used to int erpret this result as normal/abnormal . [facility] HospitalOydbxuwNKMQQJMKHO5091-33-85 15:14:00 Test Item Value Reference Range Interpretation Comments Lymphocytes (test code = Lymphocytes) 18.2 20.0-40.0 [facility] HospitalPedmidgQANNAGIAXH7772-19-04 15:14:00 Test Item Value Reference Range Interpretation Comments Segs (test code = Segs) 63.5 45.0-75.0 [facility]HgxurmeQCPBTVJHLK0519-08-35 15:14:00 Test Item Value Reference Range Interpretation Comments Hct (test code = Hct) 39.9 42.0-54.0 [facility]MxfmtqxTOULYMHPXY0257-02-17 15:14:00 Test Item Value Reference Range Interpretation Comments MCH (test code = MCH) 30.6 pg 27.0-31.0 [facility]NdxliwuUWWZCPWTOO8584-91-00 15:14:00 Test Item Value Reference Range Interpretation Comments MCV (test code = MCV) 91.2 80.0-94.0 [facility]MhhxyerQOIYJGBNUY0291-20-60 15:14:00 Test Item Value Reference Range Interpretation Comments Hgb (test code = Hgb) 13.4 14.0-18.0 [facility]UpttxpdHROPRLPGLH5012-12-05 15:14:00 Test Item Value Reference Range Interpretation Comments RBC (test code = RBC) 4.37 4.70-6.10 [facility]YqeigkpIEFKEHWSEU0622-49-72 15:14:00 Test Item Value Reference Range Interpretation Comments WBC (test code = WBC) 6.9 3.7-10.4 [facility] HospitalTehrjhuGTRQJEMMFS6110-84-55 15:14:00 Test Item Value Reference Range Interpretation Comments Platelet (test code = Platelet) 174 133-450 [facility] HospitalEvnyxuhXVENILUVPN7569-95-23 15:14:00 Test Item Value Reference Range Interpretation Comments MPV (test code = MPV) 10.3 7.4-10.4 [facility] HospitalNykxmcvAJMYRUAPLF3389-28-05 15:14:00 Test Item Value Reference Range Interpretation Comments MCHC (test code = MCHC) 33.6 32.0-36.0 [facility] HospitalSxapqrzPRWKUUKEJE4670-43-62 15:14:00 Test Item Value Reference Range Interpretation Comments RDW (test code = RDW) 13.8 11.5-14.5 [facility] [id number] 15:14:00 Test Item Value Reference Range Interpretation Comments Troponin-I (test code no gt See_Comment [Auto mated message] The = Troponin-I) system which g enerated this result transmit stuart reference range : <=0.40. The reference r jose alfredo was not used to interpr et this result as cherry l/abnormal. [facility]ARD[facility] JSQWNPL3168-42-10 15:14:00 Test Item Value Reference Range Interpretation Comments BNP (test code = BNP) 32 [facility]CARAC RMCPGRE2736-22-30 15:14:00 Test Item Value Reference Range Interpretation Comments Total CK (test code = Total CK) 64 12-191 [facility] CJVFA4048-89-09 15:14:00 Test Item Value Reference Range Interpretation Comments Lipase Lvl (test code = Lipase Lvl) 201 73-393 [facility]SmtgndsFJLZHHJNYMEH0098-84-93 15:14:00 Test Item Value Reference Range Interpretation Comments AGAP (test code = AGAP) 9.2 10.0-20.0 [facility] HospitalVgazbzjBAYOFKRLTIWV1105-38-20 15:14:00 Test Item Value Reference Range Interpretation Comments B/C Ratio (test code = B/C Ratio) 20 6-25 [facility] HospitalJmtzmxvKJQAUBBMJBCF1486-15-93 15:14:00 Test Item Value Reference Range Interpretation Comments Globulin (test code = Globulin) 3.8 2.7-4.2 [facility] HospitalElyulaeEPNVRPDLVHVR3043-03-27 15:14:00 Test Item Value Reference Range Interpretation Comments A/G Ratio (test code = A/G Ratio) 0.9 0.7-1.6 [facility] HospitalJfwkdmjHZDTJLGELXVS8997-39-03 15:14:00 Test Item Value Reference Range Interpretation Comments eGFR (test code = eGFR) 49 [facility] HospitalFbyreixBEVGBXJNLAEX9365-07-62 15:14:00 Test Item Value Reference Range Interpretation Comments Albumin Lvl (test code = Albumin Lvl) 3.6 3.5-5.0 [facility] HospitalItkhswpGJCTPBYVKUIA1962-04-28 15:14:00 Test Item Value Reference Range Interpretation Comments ALT (test code = ALT) 20 See_Comment [Auto mated message] The system which ge nerated this result transmit stuart reference range : <=65. The reference range was not used to interpr et this result as cherry l/abnormal. [facility] HospitalOxvvfwqDMXESUIDPHNP6567-00-72 15:14:00 Test Item Value Reference Range Interpretation Comments Alk Phos (test code = Alk Phos) 37 39-136 [facility] HospitalUdliatoCJAHXULXPHII6303-96-56 15:14:00 Test Item Value Reference Range Interpretation Comments AST (test code = AST) 14 See_Comment [Auto mated message] The system which ge nerated this result transmit stuart reference range : <=37. The reference range was not used to interpr et this result as cherry l/abnormal. [facility] HospitalXuwxwdsOGCVKHORUZVV9241-73-97 15:14:00 Test Item Value Reference Range Interpretation Comments Bili Total (test code = Bili Total) 0.3 0.2-1.3 [facility] HospitalXaxzbkvYYREDFUJYERE7764-05-66 15:14:00 Test Item Value Reference Range Interpretation Comments Sodium Lvl (test code = Sodium Lvl) 143 135-145 [facility] HospitalSlrthfmCTHFKFVXFGKQ4386-70-87 15:14:00 Test Item Value Reference Range Interpretation Comments Creatinine Lvl (test code = Creatinine 1.42 0.50-1.40 Lvl) [facility] HospitalOzywpwnZQNSBHQLOQOW9929-75-98 15:14:00 Test Item Value Reference Range Interpretation Comments Potassium Lvl (test code = Potassium 4.2 3.5-5.1 Lvl) [facility] HospitalFfoucylDTYQJNWNSPHN3567-62-96 15:14:00 Test Item Value Reference Range Interpretation Comments Chloride Lvl (test code = Chloride Lvl) 103 95-109 [facility] HospitalCzyoleiCBKCYSQGLYIB2607-22-56 15:14:00 Test Item Value Reference Range Interpretation Comments Calcium Lvl (test code = Calcium Lvl) 8.9 8.5-10.5 [facility] HospitalSdcexihETGRGENJUPTP4884-65-98 15:14:00 Test Item Value Reference Range Interpretation Comments CO2 (test code = CO2) 35 24-32 [facility] HospitalMubyhewUXHRJELIYBZQ3148-96-18 15:14:00 Test Item Value Reference Range Interpretation Comments Total Protein (test code = Total 7.4 6.4-8.4 Protein) [facility] HospitalJkxlrhzGQIVHXLCTZEO7411-14-20 15:14:00 Test Item Value Reference Range Interpretation Comments BUN (test code = BUN) 28 7-22 [facility] HospitalVtwepvwPYMGVNNVWFFR9512-64-57 15:14:00 Test Item Value Reference Range Interpretation Comments Glucose Lvl (test code = Glucose Lvl) 141 70-99 [facility]oundGrooghiRHCDZZBKZL4753-04-64 15:14:00 Test Item Value Reference Range Interpretation Comments Basophils # (test code 0.1 See_Comment [Aut omated message] The = Basophils #) system which generated this result tra nsmitted reference range : <=0.2. The reference r jose alfredo was not used to int erpret this result as normal/abnormal . [facility] HospitalHkiqxexEJOUWQDSOY7859-32-60 15:14:00 Test Item Value Reference Range Interpretation Comments Lymphocytes # (test code = Lymphocytes 1.3 1.0-5.5 #) [facility] HospitalDithbigXNAKEDLCLS9743-24-30 15:14:00 Test Item Value Reference Range Interpretation Comments Monocytes # (test code 1.1 See_Comment [Aut omated message] The = Monocytes #) system which generated this result tra nsmitted reference range : <=0.8. The reference r jose alfredo was not used to int erpret this result as normal/abnormal . [facility] HospitalSmhlcyfBJYIISVBLB3890-47-55 15:14:00 Test Item Value Reference Range Interpretation Comments Eosinophils # (test code 0.1 See_Comment [A utomated message] The = Eosinophils #) system wh h generated this result tra nsmitted reference range : <=0.5. The reference r jose alfredo was not used to int erpret this result as normal/abnormal . [facility] HospitalJivzetrQSUFMTEOWJ4458-64-16 15:14:00 Test Item Value Reference Range Interpretation Comments Segs-Bands # (test code = Segs-Bands #) 4.4 1.5-8.1 [facility] HospitalZxtolwnHWEJWJIWSX7319-37-35 15:14:00 Test Item Value Reference Range Interpretation Comments Basophils (test code = 0.9 See_Comment [Aut omated message] The Basophils) system which ge nerated this result tra nsmitted reference range : <=1.0. The reference r jose alfredo was not used to int erpret this result as normal/abnormal . [facility] HospitalAvgqdozCPVFGMXYOH2955-40-22 15:14:00 Test Item Value Reference Range Interpretation Comments Monocytes (test code = Monocytes) 15.3 2.0-12.0 [facility] HospitalGbavpqdCWMXLZNBUR1585-07-91 15:14:00 Test Item Value Reference Range Interpretation Comments Eosinophils (test code = 2.1 See_Comment [A utomated message] The Eosinophils) system which ge nerated this result tra nsmitted reference range : <=4.0. The reference r jose alfredo was not used to int erpret this result as normal/abnormal . [facility] HospitalEbquypkYVBWCINXUV1707-38-00 15:14:00 Test Item Value Reference Range Interpretation Comments Lymphocytes (test code = Lymphocytes) 18.2 20.0-40.0 [facility] HospitalNmqcbstGBYCCCMKFQ8106-39-62 15:14:00 Test Item Value Reference Range Interpretation Comments Segs (test code = Segs) 63.5 45.0-75.0 [facility] HospitalUbifpwtUDSBOMEWTN2755-44-73 15:14:00 Test Item Value Reference Range Interpretation Comments Hct (test code = Hct) 39.9 42.0-54.0 [facility] HospitalKmntoasFKAQWLEIVD3547-12-53 15:14:00 Test Item Value Reference Range Interpretation Comments MCH (test code = MCH) 30.6 pg 27.0-31.0 [facility] HospitalBrjxvhjXZBFNZEUVM4024-32-14 15:14:00 Test Item Value Reference Range Interpretation Comments MCV (test code = MCV) 91.2 80.0-94.0 [facility] HospitalNzrisbxASYHGCBYTD9962-18-69 15:14:00 Test Item Value Reference Range Interpretation Comments Hgb (test code = Hgb) 13.4 14.0-18.0 [facility] HospitalDufbozvKAEVBWHJPQ3332-94-80 15:14:00 Test Item Value Reference Range Interpretation Comments RBC (test code = RBC) 4.37 4.70-6.10 [facility] HospitalLtcxdwjWPKPCTKHMZ1908-46-69 15:14:00 Test Item Value Reference Range Interpretation Comments WBC (test code = WBC) 6.9 3.7-10.4 [facility] HospitalMzjinthFUJJFKUXWI3078-13-95 15:14:00 Test Item Value Reference Range Interpretation Comments Platelet (test code = Platelet) 174 133-450 [facility] HospitalNrpqesnXYTCCZQPCQ7882-51-81 15:14:00 Test Item Value Reference Range Interpretation Comments MPV (test code = MPV) 10.3 7.4-10.4 [facility] HospitalGunuroyAYBRIHJKVZ7703-80-60 15:14:00 Test Item Value Reference Range Interpretation Comments MCHC (test code = MCHC) 33.6 32.0-36.0 [facility] HospitalPutpqsxQXNYZWPUKN8891-76-76 15:14:00 Test Item Value Reference Range Interpretation Comments RDW (test code = RDW) 13.8 11.5-14.5 [facility]ARDI[facility] JJUGABL3321-01-66 15:14:00 Test Item Value Reference Range Interpretation Comments Troponin-I (test code no gt See_Comment [Auto mated message] The = Troponin-I) system which g enerated this result transmit stuart reference range : <=0.40. The reference r jose alfredo was not used to interpr et this result as cherry l/abnormal. [facility] ASIDUBF5705-86-37 15:14:00 Test Item Value Reference Range Interpretation Comments BNP (test code = BNP) 32 [facility]CARD[facility] GYCEETB0587-74-63 15:14:00 Test Item Value Reference Range Interpretation Comments Total CK (test code = Total CK) 64 12-191 [facility]annCHEM PNQXW4968-84-84 15:14:00 Test Item Value Reference Range Interpretation Comments Lipase Lvl (test code = Lipase Lvl) 201 73-393 [facility]JuldgeuADCRFBTCBKMD5072-04-33 15:14:00 Test Item Value Reference Range Interpretation Comments AGAP (test code = AGAP) 9.2 10.0-20.0 [facility] TexasAbgjvqaEYGUOBWHISYP3705-73-56 15:14:00 Test Item Value Reference Range Interpretation Comments B/C Ratio (test code = B/C Ratio) 20 6-25 [facility] TexasZadfhpyCELMHCFIGOMQ9365-95-25 15:14:00 Test Item Value Reference Range Interpretation Comments Globulin (test code = Globulin) 3.8 2.7-4.2 [facility] TexasLxozhwiOLKEAIBZJFBO4163-80-62 15:14:00 Test Item Value Reference Range Interpretation Comments A/G Ratio (test code = A/G Ratio) 0.9 0.7-1.6 [facility]roeZnnlkhsLPXIXVQMTSFY8050-46-54 15:14:00 Test Item Value Reference Range Interpretation Comments eGFR (test code = eGFR) 49 [facility]roeCpocriwSWXKGREJOJVV1354-12-93 15:14:00 Test Item Value Reference Range Interpretation Comments Albumin Lvl (test code = Albumin Lvl) 3.6 3.5-5.0 [facility] TexasLwekttjOMVBXNSEQHXZ3163-12-15 15:14:00 Test Item Value Reference Range Interpretation Comments ALT (test code = ALT) 20 See_Comment [Auto mated message] The system which ge nerated this result transmit stuart reference range : <=65. The reference range was not used to interpr et this result as cherry l/abnormal. [facility] HospitalXemrybuIOGJSYQQSHID8364-97-46 15:14:00 Test Item Value Reference Range Interpretation Comments Alk Phos (test code = Alk Phos) 37 39-136 [facility] HospitalCbhvopeUOOGZLRHXSIW1779-99-83 15:14:00 Test Item Value Reference Range Interpretation Comments AST (test code = AST) 14 See_Comment [Auto mated message] The system which ge nerated this result transmit stuart reference range : <=37. The reference range was not used to interpr et this result as cherry l/abnormal. [facility] HospitalHdrgjxeXTMMQFGCPXDR5494-66-44 15:14:00 Test Item Value Reference Range Interpretation Comments Bili Total (test code = Bili Total) 0.3 0.2-1.3 [facility] HospitalDbftnquGDFERXHESIFQ3707-81-76 15:14:00 Test Item Value Reference Range Interpretation Comments Sodium Lvl (test code = Sodium Lvl) 143 135-145 [facility] HospitalDpyrnjhHUVSDMYMZXTO7008-43-72 15:14:00 Test Item Value Reference Range Interpretation Comments Creatinine Lvl (test code = Creatinine 1.42 0.50-1.40 Lvl) [facility] HospitalFkxybgzQQTIMWILLWMC3829-72-37 15:14:00 Test Item Value Reference Range Interpretation Comments Potassium Lvl (test code = Potassium 4.2 3.5-5.1 Lvl) [facility] HospitalHlovzrkFCDPAABRHTXC9079-20-78 15:14:00 Test Item Value Reference Range Interpretation Comments Chloride Lvl (test code = Chloride Lvl) 103 95-109 [facility] HospitalRouwzcrAOGMQHMIFVSY6154-08-13 15:14:00 Test Item Value Reference Range Interpretation Comments Calcium Lvl (test code = Calcium Lvl) 8.9 8.5-10.5 [facility] HospitalDiivzkeFAOBHENZQPCU0622-53-08 15:14:00 Test Item Value Reference Range Interpretation Comments CO2 (test code = CO2) 35 24-32 [facility] HospitalWxmqgdwUAMHUJIERVZJ5219-17-43 15:14:00 Test Item Value Reference Range Interpretation Comments Total Protein (test code = Total 7.4 6.4-8.4 Protein) [facility] HospitalDgzqmruYWNCPYRSIXAN2338-21-07 15:14:00 Test Item Value Reference Range Interpretation Comments BUN (test code = BUN) 28 7-22 [facility] HospitalQtoripuWJCVHNSDKVMC3000-35-71 15:14:00 Test Item Value Reference Range Interpretation Comments Glucose Lvl (test code = Glucose Lvl) 141 70-99 [facility] HospitalUwczsbgQFHNELEIYN5217-00-65 15:14:00 Test Item Value Reference Range Interpretation Comments Basophils # (test code 0.1 See_Comment [Aut omated message] The = Basophils #) system which generated this result tra nsmitted reference range : <=0.2. The reference r jose alfredo was not used to int erpret this result as normal/abnormal . [facility] HospitalLgdefygUPXWOGNQIY0280-46-57 15:14:00 Test Item Value Reference Range Interpretation Comments Lymphocytes # (test code = Lymphocytes 1.3 1.0-5.5 #) [facility] HospitalIqdtjwtKGSVYVAVSU0491-23-67 15:14:00 Test Item Value Reference Range Interpretation Comments Monocytes # (test code 1.1 See_Comment [Aut omated message] The = Monocytes #) system which generated this result tra nsmitted reference range : <=0.8. The reference r jose alfredo was not used to int erpret this result as normal/abnormal . [facility] HospitalVogwhyeJMSORUPPDT5782-78-75 15:14:00 Test Item Value Reference Range Interpretation Comments Eosinophils # (test code 0.1 See_Comment [A utomated message] The = Eosinophils #) system whic h generated this result tra nsmitted reference range : <=0.5. The reference r jose alfredo was not used to int erpret this result as normal/abnormal . [facility] HospitalUkbqfvmXVCXZRBGSD3741-36-50 15:14:00 Test Item Value Reference Range Interpretation Comments Segs-Bands # (test code = Segs-Bands #) 4.4 1.5-8.1 [facility] HospitalMgbiuqoJRXKGMAVOV5991-25-20 15:14:00 Test Item Value Reference Range Interpretation Comments Basophils (test code = 0.9 See_Comment [Aut omated message] The Basophils) system which ge nerated this result tra nsmitted reference range : <=1.0. The reference r jose alfredo was not used to int erpret this result as normal/abnormal . [facility] HospitalRdvgrmeYPFSRXXCIR2309-41-56 15:14:00 Test Item Value Reference Range Interpretation Comments Monocytes (test code = Monocytes) 15.3 2.0-12.0 [facility] HospitalZytsqrgBAHYNTMOBS3913-42-66 15:14:00 Test Item Value Reference Range Interpretation Comments Eosinophils (test code = 2.1 See_Comment [A utomated message] The Eosinophils) system which ge nerated this result tra nsmitted reference range : <=4.0. The reference r jose alfredo was not used to int erpret this result as normal/abnormal . [facility] HospitalCyicuekUBONBWGFQM8404-88-41 15:14:00 Test Item Value Reference Range Interpretation Comments Lymphocytes (test code = Lymphocytes) 18.2 20.0-40.0 [facility] HospitalQyhzphzHETRDYBECA2851-13-64 15:14:00 Test Item Value Reference Range Interpretation Comments Segs (test code = Segs) 63.5 45.0-75.0 [facility] HospitalMbtqmpkYULPMYLHPM7994-79-11 15:14:00 Test Item Value Reference Range Interpretation Comments Hct (test code = Hct) 39.9 42.0-54.0 [facility] HospitalOuxrvogOYHYVJRNWR4293-93-58 15:14:00 Test Item Value Reference Range Interpretation Comments MCH (test code = MCH) 30.6 pg 27.0-31.0 [facility] HospitalQidpdiqAAHLKNDRBN2834-08-49 15:14:00 Test Item Value Reference Range Interpretation Comments MCV (test code = MCV) 91.2 80.0-94.0 [facility] HospitalWyvrhatWZRJOFUYJU9416-55-68 15:14:00 Test Item Value Reference Range Interpretation Comments Hgb (test code = Hgb) 13.4 14.0-18.0 [facility] HospitalVuanblqIKCQXFEYCB0163-16-22 15:14:00 Test Item Value Reference Range Interpretation Comments RBC (test code = RBC) 4.37 4.70-6.10 [facility] HospitalWzxofckHOPCEVRTDD6329-41-88 15:14:00 Test Item Value Reference Range Interpretation Comments WBC (test code = WBC) 6.9 3.7-10.4 [facility] HospitalLzowrrfOLPOWFOEDH7660-64-48 15:14:00 Test Item Value Reference Range Interpretation Comments Platelet (test code = Platelet) 174 133-450 [facility] HospitalLtxwvemXAYHUUHORN7932-90-32 15:14:00 Test Item Value Reference Range Interpretation Comments MPV (test code = MPV) 10.3 7.4-10.4 [facility] HospitalAitmidmTSUOLBVXEC5430-79-54 15:14:00 Test Item Value Reference Range Interpretation Comments MCHC (test code = MCHC) 33.6 32.0-36.0 [facility] HospitalFnseaayNFOZIHNQTL3776-31-50 15:14:00 Test Item Value Reference Range Interpretation Comments RDW (test code = RDW) 13.8 11.5-14.5 [facility]2015-06-21 10:00:00 Test Item Value Reference Range Interpretation Comments Magnesium Lvl (test code = Magnesium 1.6 1.8-2.4 Lvl) [facility] HospitalJnomfmfKNBZMLWLVVRU1103-66-88 10:00:00 Test Item Value Reference Range Interpretation Comments AGAP (test code = AGAP) 8.5 10.0-20.0 [facility] HospitalUieibiaJELKEVSRTXKP1675-46-40 10:00:00 Test Item Value Reference Range Interpretation Comments eGFR (test code = eGFR) 86 [facility] HospitalMffliqkUPHRGWKYJHPR4603-63-49 10:00:00 Test Item Value Reference Range Interpretation Comments Sodium Lvl (test code = Sodium Lvl) 137 135-145 [facility] HospitalUzdegjcIMJAWWHECVPS3198-94-53 10:00:00 Test Item Value Reference Range Interpretation Comments Potassium Lvl (test code = Potassium 3.5 3.5-5.1 Lvl) [facility] HospitalZbwxkwxCWYJBIAQFHNG4192-63-79 10:00:00 Test Item Value Reference Range Interpretation Comments Calcium Lvl (test code = Calcium Lvl) 8.4 8.5-10.5 [facility] HospitalKwbklorEMPEYVRMOLEO9555-73-61 10:00:00 Test Item Value Reference Range Interpretation Comments CO2 (test code = CO2) 30 24-32 [facility] HospitalEoswtieGKOEKAOTMAYA0865-35-81 10:00:00 Test Item Value Reference Range Interpretation Comments Chloride Lvl (test code = Chloride Lvl) 102 95-109 [facility] HospitalLixmbwhBGDLQDQTSYLR1556-27-26 10:00:00 Test Item Value Reference Range Interpretation Comments Creatinine Lvl (test code = Creatinine 0.9 0.5-1.4 Lvl) [facility] HospitalTipfzglLHOOXNDKQSIN9718-82-87 10:00:00 Test Item Value Reference Range Interpretation Comments Glucose Lvl (test code = Glucose Lvl) 127 70-99 [facility] HospitalHxapsnuVWENMEZRFWIL8926-01-02 10:00:00 Test Item Value Reference Range Interpretation Comments BUN (test code = BUN) 9 7-22 [facility] HospitalUpiqeqsZNSSVDPCEA5800-45-63 10:00:00 Test Item Value Reference Range Interpretation Comments Basophils # (test code 0.1 See_Comment [Aut omated message] The = Basophils #) system which generated this result tra nsmitted reference range : <=0.2. The reference r jose alfredo was not used to int erpret this result as normal/abnormal . [facility] HospitalNmedvxaGUTTFVSSBH1640-09-21 10:00:00 Test Item Value Reference Range Interpretation Comments Eosinophils # (test code 0.1 See_Comment [A utomated message] The = Eosinophils #) system whic h generated this result tra nsmitted reference range : <=0.5. The reference r jose alfredo was not used to int erpret this result as normal/abnormal . [facility] HospitalYlvdvbxIXQETCPDBK4182-06-23 10:00:00 Test Item Value Reference Range Interpretation Comments Monocytes # (test code 0.9 See_Comment [Aut omated message] The = Monocytes #) system which generated this result tra nsmitted reference range : <=0.8. The reference r jose alfredo was not used to int erpret this result as normal/abnormal . [facility] HospitalRcdumgdTVVUJAKALO0048-45-30 10:00:00 Test Item Value Reference Range Interpretation Comments Lymphocytes # (test code = Lymphocytes 2.0 1.0-5.5 #) [facility] HospitalDtmfgemJWKTCLSLZE1768-23-53 10:00:00 Test Item Value Reference Range Interpretation Comments Segs (test code = Segs) 59.5 45.0-75.0 [facility] HospitalNtdndzrUKHRNBXRJD0848-90-88 10:00:00 Test Item Value Reference Range Interpretation Comments Lymphocytes (test code = Lymphocytes) 25.6 20.0-40.0 [facility] HospitalTyvbncgROXQCTNWXZ7495-31-18 10:00:00 Test Item Value Reference Range Interpretation Comments Basophils (test code = 1.6 See_Comment [Aut omated message] The Basophils) system which ge nerated this result tra nsmitted reference range : <=1.0. The reference r jose alfredo was not used to int erpret this result as normal/abnormal . [facility] HospitalYuhlcmtGSMHATDXXU5437-44-72 10:00:00 Test Item Value Reference Range Interpretation Comments Eosinophils (test code = 1.2 See_Comment [A utomated message] The Eosinophils) system which ge nerated this result tra nsmitted reference range : <=4.0. The reference r jose alfredo was not used to int erpret this result as normal/abnormal . [facility] HospitalObkqkrhRRHZAMBYSE0619-54-35 10:00:00 Test Item Value Reference Range Interpretation Comments Segs-Bands # (test code = Segs-Bands #) 4.6 1.5-8.1 [facility] HospitalQpthdeqKJAGBONGKZ1981-72-89 10:00:00 Test Item Value Reference Range Interpretation Comments Monocytes (test code = Monocytes) 12.1 2.0-12.0 [facility] HospitalRvdjhyaKESKOCZRIE1537-08-15 10:00:00 Test Item Value Reference Range Interpretation Comments MCH (test code = MCH) 30.5 pg 27.0-31.0 [facility] HospitalIkclprrRVOAYKNKFW1531-34-19 10:00:00 Test Item Value Reference Range Interpretation Comments MCHC (test code = MCHC) 34.0 32.0-36.0 [facility] HospitalQmxcbunGWGCXCMGDI0853-91-28 10:00:00 Test Item Value Reference Range Interpretation Comments RDW (test code = RDW) 13.3 11.5-14.5 [facility] HospitalYjiorkdINXUIVNQAT9282-35-15 10:00:00 Test Item Value Reference Range Interpretation Comments Hct (test code = Hct) 31.0 42.0-54.0 [facility] HospitalBmznfmhWSYYQGMYXJ5372-37-19 10:00:00 Test Item Value Reference Range Interpretation Comments MCV (test code = MCV) 89.6 80.0-94.0 [facility] HospitalZoexzgeCZSHVCNMTC7763-79-62 10:00:00 Test Item Value Reference Range Interpretation Comments MPV (test code = MPV) 9.4 7.4-10.4 [facility] HospitalAcujdacLDABIJPLDR0728-75-28 10:00:00 Test Item Value Reference Range Interpretation Comments Platelet (test code = Platelet) 188 133-450 [facility] HospitalKevkwnfDCIPPDSCKJ5624-09-92 10:00:00 Test Item Value Reference Range Interpretation Comments Hgb (test code = Hgb) 10.5 14.0-18.0 [facility] HospitalIdsirrtFBFECWXCFD7287-19-99 10:00:00 Test Item Value Reference Range Interpretation Comments WBC (test code = WBC) 7.7 3.7-10.4 [facility] HospitalDlcuyebHLNKHXNRPV3896-03-48 10:00:00 Test Item Value Reference Range Interpretation Comments RBC (test code = RBC) 3.46 4.70-6.10 [facility]CHE[facility] JPUXJ2819-18-26 10:00:00 Test Item Value Reference Range Interpretation Comments Magnesium Lvl (test code = Magnesium 1.6 1.8-2.4 Lvl) [facility] HospitalBsorbzwAWLOWCOLHGZT4392-17-90 10:00:00 Test Item Value Reference Range Interpretation Comments AGAP (test code = AGAP) 8.5 10.0-20.0 [facility] HospitalTtfshxoWRTZPCCAUAMZ4844-19-15 10:00:00 Test Item Value Reference Range Interpretation Comments eGFR (test code = eGFR) 86 [facility] HospitalRlfripiCLHPSQGUFGXS7416-19-98 10:00:00 Test Item Value Reference Range Interpretation Comments Sodium Lvl (test code = Sodium Lvl) 137 135-145 [facility] HospitalKljuuseTSGDPCPANVSK3484-78-45 10:00:00 Test Item Value Reference Range Interpretation Comments Potassium Lvl (test code = Potassium 3.5 3.5-5.1 Lvl) [facility] HospitalWsqqfffLQBVHBXKLHYM0067-81-37 10:00:00 Test Item Value Reference Range Interpretation Comments Calcium Lvl (test code = Calcium Lvl) 8.4 8.5-10.5 [facility] HospitalVnkjtoeQTDLFAZUQNWD1762-57-51 10:00:00 Test Item Value Reference Range Interpretation Comments CO2 (test code = CO2) 30 24-32 [facility] HospitalBnhrwwcGCGGOIYPMWNW0171-97-05 10:00:00 Test Item Value Reference Range Interpretation Comments Chloride Lvl (test code = Chloride Lvl) 102 95-109 [facility] HospitalHyjzyotAFFXHUJBUMQA7854-82-47 10:00:00 Test Item Value Reference Range Interpretation Comments Creatinine Lvl (test code = Creatinine 0.9 0.5-1.4 Lvl) [facility] HospitalHsyhrfeSNLYSGWXUMSN7097-46-41 10:00:00 Test Item Value Reference Range Interpretation Comments Glucose Lvl (test code = Glucose Lvl) 127 70-99 [facility] HospitalWjfbtroTAOVZIIAJJBG5493-21-91 10:00:00 Test Item Value Reference Range Interpretation Comments BUN (test code = BUN) 9 7-22 [facility]oundZsbbgrlLWGLZQIQJQ8347-96-47 10:00:00 Test Item Value Reference Range Interpretation Comments Basophils # (test code 0.1 See_Comment [Aut omated message] The = Basophils #) system which generated this result tra nsmitted reference range : <=0.2. The reference r jose alfredo was not used to int erpret this result as normal/abnormal . [facility] HospitalInhprtcGTDYFKWSJF1819-63-87 10:00:00 Test Item Value Reference Range Interpretation Comments Eosinophils # (test code 0.1 See_Comment [A utomated message] The = Eosinophils #) system whic h generated this result tra nsmitted reference range : <=0.5. The reference r jose alfredo was not used to int erpret this result as normal/abnormal . [facility] HospitalTrxloenLHERVRGJUY3171-27-98 10:00:00 Test Item Value Reference Range Interpretation Comments Monocytes # (test code 0.9 See_Comment [Aut omated message] The = Monocytes #) system which generated this result tra nsmitted reference range : <=0.8. The reference r jose alfredo was not used to int erpret this result as normal/abnormal . [facility] HospitalMqwslitHQFFKLZOIZ8383-31-43 10:00:00 Test Item Value Reference Range Interpretation Comments Lymphocytes # (test code = Lymphocytes 2.0 1.0-5.5 #) [facility] HospitalJmxjdlkPEPXNFNKSP8697-77-79 10:00:00 Test Item Value Reference Range Interpretation Comments Segs (test code = Segs) 59.5 45.0-75.0 [facility] HospitalBwfhgnuTSKELCXEFM2825-49-30 10:00:00 Test Item Value Reference Range Interpretation Comments Lymphocytes (test code = Lymphocytes) 25.6 20.0-40.0 [facility] HospitalGzbkfngQJIFWVDFYD8561-60-85 10:00:00 Test Item Value Reference Range Interpretation Comments Basophils (test code = 1.6 See_Comment [Aut omated message] The Basophils) system which ge nerated this result tra nsmitted reference range : <=1.0. The reference r jose alfredo was not used to int erpret this result as normal/abnormal . [facility] HospitalSetmmiwJNTQCAHSTI8985-74-34 10:00:00 Test Item Value Reference Range Interpretation Comments Eosinophils (test code = 1.2 See_Comment [A utomated message] The Eosinophils) system which ge nerated this result tra nsmitted reference range : <=4.0. The reference r jose alfredo was not used to int erpret this result as normal/abnormal . [facility] HospitalHnsefeqJZIAQPHEQI6176-41-59 10:00:00 Test Item Value Reference Range Interpretation Comments Segs-Bands # (test code = Segs-Bands #) 4.6 1.5-8.1 [facility] HospitalPhgjpdwCLJELQJTFD6092-17-11 10:00:00 Test Item Value Reference Range Interpretation Comments Monocytes (test code = Monocytes) 12.1 2.0-12.0 [facility] HospitalAefuzqmGDJATMZYPO3726-63-70 10:00:00 Test Item Value Reference Range Interpretation Comments MCH (test code = MCH) 30.5 pg 27.0-31.0 [facility] HospitalGrwqietWCJQESTVEB9835-09-26 10:00:00 Test Item Value Reference Range Interpretation Comments MCHC (test code = MCHC) 34.0 32.0-36.0 [facility] HospitalVnfwmjgBGFCHAKMOQ9054-15-35 10:00:00 Test Item Value Reference Range Interpretation Comments RDW (test code = RDW) 13.3 11.5-14.5 [facility] HospitalDkouuhcHEPWTYIHOM1522-42-49 10:00:00 Test Item Value Reference Range Interpretation Comments Hct (test code = Hct) 31.0 42.0-54.0 [facility] HospitalWtwmkbaACCJZSORBU4079-49-58 10:00:00 Test Item Value Reference Range Interpretation Comments MCV (test code = MCV) 89.6 80.0-94.0 [facility] HospitalYlyefukUCBMMTRVLR8678-76-88 10:00:00 Test Item Value Reference Range Interpretation Comments MPV (test code = MPV) 9.4 7.4-10.4 [facility] HospitalTqmvijqJKCDQUYGJR4286-23-48 10:00:00 Test Item Value Reference Range Interpretation Comments Platelet (test code = Platelet) 188 133-450 [facility] HospitalPvdkhdfMALIUQRAKZ5275-61-74 10:00:00 Test Item Value Reference Range Interpretation Comments Hgb (test code = Hgb) 10.5 14.0-18.0 [facility] HospitalOotvtlmPPBRFANMEQ8077-91-05 10:00:00 Test Item Value Reference Range Interpretation Comments WBC (test code = WBC) 7.7 3.7-10.4 [facility] HospitalEimcsutDMWLKMPHAT8916-52-28 10:00:00 Test Item Value Reference Range Interpretation Comments RBC (test code = RBC) 3.46 4.70-6.10 [facility]2015-06-21 10:00:00 Test Item Value Reference Range Interpretation Comments Magnesium Lvl (test code = Magnesium 1.6 1.8-2.4 Lvl) [facility] HospitalXumdywpACDRHGIYLRPN8662-75-90 10:00:00 Test Item Value Reference Range Interpretation Comments AGAP (test code = AGAP) 8.5 10.0-20.0 [facility] HospitalCweadlhQZDWWBIBMZVN9767-36-52 10:00:00 Test Item Value Reference Range Interpretation Comments eGFR (test code = eGFR) 86 [facility] HospitalNoeargbAHHLKDNNKJRZ7411-36-82 10:00:00 Test Item Value Reference Range Interpretation Comments Sodium Lvl (test code = Sodium Lvl) 137 135-145 [facility] HospitalLervvefUPUYWIJXXCCA7341-25-11 10:00:00 Test Item Value Reference Range Interpretation Comments Potassium Lvl (test code = Potassium 3.5 3.5-5.1 Lvl) [facility] HospitalEgpnxzfFKIVKSQZOBHH2192-91-95 10:00:00 Test Item Value Reference Range Interpretation Comments Calcium Lvl (test code = Calcium Lvl) 8.4 8.5-10.5 [facility] HospitalSlfbywpPBMZHTMOESDK0073-24-44 10:00:00 Test Item Value Reference Range Interpretation Comments CO2 (test code = CO2) 30 24-32 [facility]VngkwzjFQLISHVWNDQX1064-54-09 10:00:00 Test Item Value Reference Range Interpretation Comments Chloride Lvl (test code = Chloride Lvl) 102 95-109 [facility] HospitalJnqpkrwENSFMXZDFXOC1222-99-88 10:00:00 Test Item Value Reference Range Interpretation Comments Creatinine Lvl (test code = Creatinine 0.9 0.5-1.4 Lvl) [facility] HospitalPwicoalVVIFXYYXHHZU1082-12-15 10:00:00 Test Item Value Reference Range Interpretation Comments Glucose Lvl (test code = Glucose Lvl) 127 70-99 [facility] HospitalUuhyiovDLRHACQTZVXS2099-62-82 10:00:00 Test Item Value Reference Range Interpretation Comments BUN (test code = BUN) 9 7-22 [facility]WudtzzsOJNOYGBQTS4539-08-75 10:00:00 Test Item Value Reference Range Interpretation Comments Basophils # (test code 0.1 See_Comment [Aut omated message] The = Basophils #) system which generated this result tra nsmitted reference range : <=0.2. The reference r jose alfredo was not used to int erpret this result as normal/abnormal . [facility] HospitalOrtnglsPGOBODIKHF3395-99-15 10:00:00 Test Item Value Reference Range Interpretation Comments Eosinophils # (test code 0.1 See_Comment [A utomated message] The = Eosinophils #) system whic h generated this result tra nsmitted reference range : <=0.5. The reference r jose alfredo was not used to int erpret this result as normal/abnormal . [facility] HospitalLkqpavvEHIMYEHRBK2066-51-34 10:00:00 Test Item Value Reference Range Interpretation Comments Monocytes # (test code 0.9 See_Comment [Aut omated message] The = Monocytes #) system which generated this result tra nsmitted reference range : <=0.8. The reference r jose alfredo was not used to int erpret this result as normal/abnormal . [facility] HospitalBmxvxopZCSAUVTZPH3926-64-12 10:00:00 Test Item Value Reference Range Interpretation Comments Lymphocytes # (test code = Lymphocytes 2.0 1.0-5.5 #) [facility] HospitalSkzvxuhZBTXPNNEZO1735-08-63 10:00:00 Test Item Value Reference Range Interpretation Comments Segs (test code = Segs) 59.5 45.0-75.0 [facility] HospitalEhobbmeVRGNBUAVEZ2852-47-75 10:00:00 Test Item Value Reference Range Interpretation Comments Lymphocytes (test code = Lymphocytes) 25.6 20.0-40.0 [facility] HospitalJculhadCKMDTVLAFV3026-51-72 10:00:00 Test Item Value Reference Range Interpretation Comments Basophils (test code = 1.6 See_Comment [Aut omated message] The Basophils) system which ge nerated this result tra nsmitted reference range : <=1.0. The reference r jose alfredo was not used to int erpret this result as normal/abnormal . [facility] HospitalFnrlctlWVDABVSXPA2611-24-00 10:00:00 Test Item Value Reference Range Interpretation Comments Eosinophils (test code = 1.2 See_Comment [A utomated message] The Eosinophils) system which ge nerated this result tra nsmitted reference range : <=4.0. The reference r jose alfredo was not used to int erpret this result as normal/abnormal . [facility] HospitalEkvmpjmJPTXTCOAYP5334-66-83 10:00:00 Test Item Value Reference Range Interpretation Comments Segs-Bands # (test code = Segs-Bands #) 4.6 1.5-8.1 [facility]oundKhypgayEDSAIFHPKF7441-45-86 10:00:00 Test Item Value Reference Range Interpretation Comments Monocytes (test code = Monocytes) 12.1 2.0-12.0 [facility]oundOlmybhpKQZNHKJIYD9361-98-98 10:00:00 Test Item Value Reference Range Interpretation Comments MCH (test code = MCH) 30.5 pg 27.0-31.0 [facility]oundSyuzmvcLQXLEWWXHN9844-02-32 10:00:00 Test Item Value Reference Range Interpretation Comments MCHC (test code = MCHC) 34.0 32.0-36.0 [facility]oundDptweuuXVOHSUQFTS6403-88-29 10:00:00 Test Item Value Reference Range Interpretation Comments RDW (test code = RDW) 13.3 11.5-14.5 [facility]oundTzoyzkcHEDUZLXBBV0969-55-19 10:00:00 Test Item Value Reference Range Interpretation Comments Hct (test code = Hct) 31.0 42.0-54.0 [facility]oundOtafzlnXMAXJXFZTN2451-00-54 10:00:00 Test Item Value Reference Range Interpretation Comments MCV (test code = MCV) 89.6 80.0-94.0 [facility]oundJptzulcYABQEHRLMN0308-98-47 10:00:00 Test Item Value Reference Range Interpretation Comments MPV (test code = MPV) 9.4 7.4-10.4 [facility]oundYzxvfjhMCJFRJNWGI8171-70-88 10:00:00 Test Item Value Reference Range Interpretation Comments Platelet (test code = Platelet) 188 133-450 [facility]oundMvjtabgRMNFZDJSRC0328-86-47 10:00:00 Test Item Value Reference Range Interpretation Comments Hgb (test code = Hgb) 10.5 14.0-18.0 [facility]oundSxmtebdZFCLGRKPPQ6742-66-21 10:00:00 Test Item Value Reference Range Interpretation Comments WBC (test code = WBC) 7.7 3.7-10.4 [facility]oundYziiuseCGOCPKGMHE3661-46-10 10:00:00 Test Item Value Reference Range Interpretation Comments RBC (test code = RBC) 3.46 4.70-6.10 [facility] YDMLA7385-72-52 14:44:00 Test Item Value Reference Range Interpretation Comments Lactic Acid Lvl (test code = Lactic 1.4 0.5-2.2 Acid Lvl) [facility] HospitalThyilkcBDPSRFQQEKZX0108-33-74 14:44:00 Test Item Value Reference Range Interpretation Comments Sodium Lvl (test code = Sodium Lvl) 133 135-145 [facility]2015-06-20 14:44:00 Test Item Value Reference Range Interpretation Comments Lactic Acid Lvl (test code = Lactic 1.4 0.5-2.2 Acid Lvl) [facility] HospitalZgiynlgXQLYVJJFREUL9142-40-94 14:44:00 Test Item Value Reference Range Interpretation Comments Sodium Lvl (test code = Sodium Lvl) 133 135-145 [facility]2015-06-20 14:44:00 Test Item Value Reference Range Interpretation Comments Lactic Acid Lvl (test code = Lactic 1.4 0.5-2.2 Acid Lvl) [facility] HospitalZckovnaYIIOGMWXXFAN1835-06-56 14:44:00 Test Item Value Reference Range Interpretation Comments Sodium Lvl (test code = Sodium Lvl) 133 135-145 [facility]2015-06-20 09:05:00 Test Item Value Reference Range Interpretation Comments B/C Ratio (test code = B/C Ratio) 11 6-25 [facility]2015-06-20 09:05:00 Test Item Value Reference Range Interpretation Comments A/G Ratio (test code = A/G Ratio) 1.0 0.7-1.6 [facility]2015-06-20 09:05:00 Test Item Value Reference Range Interpretation Comments Globulin (test code = Globulin) 3.3 2.0-4.0 [facility]2015-06-20 09:05:00 Test Item Value Reference Range Interpretation Comments AGAP (test code = AGAP) 9.5 10.0-20.0 [facility]2015-06-20 09:05:00 Test Item Value Reference Range Interpretation Comments eGFR (test code = eGFR) 76 [facility]2015-06-20 09:05:00 Test Item Value Reference Range Interpretation Comments Sodium Lvl (test code = Sodium Lvl) 129 135-145 [facility]2015-06-20 09:05:00 Test Item Value Reference Range Interpretation Comments Bili Total (test code = Bili Total) 0.7 0.2-1.3 [facility]2015-06-20 09:05:00 Test Item Value Reference Range Interpretation Comments AST (test code = AST) 31 See_Comment [Auto mated message] The system which ge nerated this result transmit stuart reference range : <=37. The reference range was not used to interpr et this result as cherry l/abnormal. [facility]2015-06-20 09:05:00 Test Item Value Reference Range Interpretation Comments ALT (test code = ALT) 25 See_Comment [Auto mated message] The system which ge nerated this result transmit stuart reference range : <=65. The reference range was not used to interpr et this result as cherry l/abnormal. [facility]FidusNetCONE HE[facility] WOMEN'[facility] HOSPITALEHIJO9718-69-39 09:05:00 Test Item Value Reference Range Interpretation Comments Alk Phos (test code = Alk Phos) 32 39-136 [facility]2015-06-20 09:05:00 Test Item Value Reference Range Interpretation Comments Total Protein (test code = Total 6.5 6.4-8.4 Protein) [facility]2015-06-20 09:05:00 Test Item Value Reference Range Interpretation Comments Potassium Lvl (test code = Potassium 3.5 3.5-5.1 Lvl) [facility]roeFidusNetCONE [facility] WOMEN'S HOSPITALTFTYS7938-08-73 09:05:00 Test Item Value Reference Range Interpretation Comments Albumin Lvl (test code = Albumin Lvl) 3.2 3.5-5.0 [facility]2015-06-20 09:05:00 Test Item Value Reference Range Interpretation Comments CO2 (test code = CO2) 28 24-32 [facility]2015-06-20 09:05:00 Test Item Value Reference Range Interpretation Comments Chloride Lvl (test code = Chloride Lvl) 95 95-109 [facility]2015-06-20 09:05:00 Test Item Value Reference Range Interpretation Comments Calcium Lvl (test code = Calcium Lvl) 8.2 8.5-10.5 [facility]2015-06-20 09:05:00 Test Item Value Reference Range Interpretation Comments Glucose Lvl (test code = Glucose Lvl) 147 70-99 [facility]2015-06-20 09:05:00 Test Item Value Reference Range Interpretation Comments Creatinine Lvl (test code = Creatinine 1.0 0.5-1.4 Lvl) [facility] JGDHF6059-41-83 09:05:00 Test Item Value Reference Range Interpretation Comments BUN (test code = BUN) 11 - [facility] HospitalBztotejRFWTBCIYTWJD5748-46-40 09:05:00 Test Item Value Reference Range Interpretation Comments AGAP (test code = AGAP) 10.5 10.0-20.0 [facility] HospitalDktxbjvCPQRDWWQNPLD9482-40-97 09:05:00 Test Item Value Reference Range Interpretation Comments Calcium Lvl (test code = Calcium Lvl) 8.4 8.5-10.5 [facility] HospitalZkmdovyXISOSGGIETYS3037-96-54 09:05:00 Test Item Value Reference Range Interpretation Comments CO2 (test code = CO2) 27 24-32 [facility] HospitalLvuotteEBHZIUOJYIAX9009-61-29 09:05:00 Test Item Value Reference Range Interpretation Comments Chloride Lvl (test code = Chloride Lvl) 96 95-109 [facility] HospitalSjrkineDKWEUPUJEVKI3593-88-35 09:05:00 Test Item Value Reference Range Interpretation Comments eGFR (test code = eGFR) 76 [facility] HospitalOtwqcpxZPOSHQMDDIXK8026-76-18 09:05:00 Test Item Value Reference Range Interpretation Comments Potassium Lvl (test code = Potassium 3.5 3.5-5.1 Lvl) [facility] HospitalEhhncyhMCUMSWPBUZZW1140-94-80 09:05:00 Test Item Value Reference Range Interpretation Comments Sodium Lvl (test code = Sodium Lvl) 130 135-145 [facility] HospitalCyjnhehHAMAOKHYNPDL8135-40-91 09:05:00 Test Item Value Reference Range Interpretation Comments Creatinine Lvl (test code = Creatinine 1.0 0.5-1.4 Lvl) [facility] HospitalVqbfllhDUDXCVIJHBMA3047-11-87 09:05:00 Test Item Value Reference Range Interpretation Comments BUN (test code = BUN) 11 - [facility] HospitalSmfjzxuVNBFEPQSNDTT7431-13-14 09:05:00 Test Item Value Reference Range Interpretation Comments Glucose Lvl (test code = Glucose Lvl) 145 70-99 [facility] HospitalMlwcurbRZROLCNKTF0881-78-85 09:05:00 Test Item Value Reference Range Interpretation Comments Lymphocytes (test code = Lymphocytes) 12.7 20.0-40.0 [facility] HospitalQgxlndyCISOUGLCPT9873-40-82 09:05:00 Test Item Value Reference Range Interpretation Comments Segs (test code = Segs) 74.1 45.0-75.0 [facility] HospitalMvhqiinDAXTLBIVFR3580-75-25 09:05:00 Test Item Value Reference Range Interpretation Comments Monocytes (test code = Monocytes) 12.6 2.0-12.0 [facility] HospitalDrdijqlSVVCLUVTAK8070-63-19 09:05:00 Test Item Value Reference Range Interpretation Comments Monocytes # (test code 1.6 See_Comment [Aut omated message] The = Monocytes #) system which generated this result tra nsmitted reference range : <=0.8. The reference r jose alfredo was not used to int erpret this result as normal/abnormal . [facility] HospitalJygejceQYUQIHMLDK2686-24-39 09:05:00 Test Item Value Reference Range Interpretation Comments Lymphocytes # (test code = Lymphocytes 1.6 1.0-5.5 #) [facility] HospitalGwzyfxuLKHYQTJFFT6097-16-62 09:05:00 Test Item Value Reference Range Interpretation Comments Basophils (test code = 0.2 See_Comment [Aut omated message] The Basophils) system which ge nerated this result tra nsmitted reference range : <=1.0. The reference r jose alfredo was not used to int erpret this result as normal/abnormal . [facility] HospitalEttctfiJJHBZFDPRH6522-21-62 09:05:00 Test Item Value Reference Range Interpretation Comments Eosinophils (test code = 0.4 See_Comment [A utomated message] The Eosinophils) system which ge nerated this result tra nsmitted reference range : <=4.0. The reference r jose alfredo was not used to int erpret this result as normal/abnormal . [facility] HospitalGymiihgVDQOVIAGDC4432-28-94 09:05:00 Test Item Value Reference Range Interpretation Comments Segs-Bands # (test code = Segs-Bands #) 9.6 1.5-8.1 [facility] HospitalYeqtbrlJLQODMKYPJ7382-04-02 09:05:00 Test Item Value Reference Range Interpretation Comments Eosinophils # (test code 0.1 See_Comment [A utomated message] The = Eosinophils #) system whic h generated this result tra nsmitted reference range : <=0.5. The reference r jose alfredo was not used to int erpret this result as normal/abnormal . [facility] HospitalQztgdkvLMCAIBUKVZ0459-86-96 09:05:00 Test Item Value Reference Range Interpretation Comments RBC (test code = RBC) 3.97 4.70-6.10 [facility] HospitalLsoyazzRPEQRQGIJM4409-73-58 09:05:00 Test Item Value Reference Range Interpretation Comments WBC (test code = WBC) 13.0 3.7-10.4 [facility] HospitalApcbxftRCLXJGDKRK2007-79-47 09:05:00 Test Item Value Reference Range Interpretation Comments MPV (test code = MPV) 9.7 7.4-10.4 [facility] HospitalKxkmnomNOJOLKXWLG3663-28-55 09:05:00 Test Item Value Reference Range Interpretation Comments RDW (test code = RDW) 13.1 11.5-14.5 [facility] HospitalLnnthnuPLXEERRJJR0545-28-16 09:05:00 Test Item Value Reference Range Interpretation Comments Platelet (test code = Platelet) 202 133-450 [facility] HospitalUuyefanXAETCXRQGC3825-14-70 09:05:00 Test Item Value Reference Range Interpretation Comments Hct (test code = Hct) 34.8 42.0-54.0 [facility] HospitalQiyenwwPSVAWIPBWI8672-14-62 09:05:00 Test Item Value Reference Range Interpretation Comments MCV (test code = MCV) 87.8 80.0-94.0 [facility] HospitalFdhggzvYQHQFZWKGF1515-81-41 09:05:00 Test Item Value Reference Range Interpretation Comments Hgb (test code = Hgb) 11.9 14.0-18.0 [facility] HospitalZkcovlsBJQTKIFJQQ5465-78-65 09:05:00 Test Item Value Reference Range Interpretation Comments MCH (test code = MCH) 30.1 pg 27.0-31.0 [facility] HospitalDejtlbsMHTVBNLPMK4407-66-97 09:05:00 Test Item Value Reference Range Interpretation Comments MCHC (test code = MCHC) 34.3 32.0-36.0 [facility]2015-06-20 09:05:00 Test Item Value Reference Range Interpretation Comments B/C Ratio (test code = B/C Ratio) 11 6-25 [facility] FAEDI2369-63-16 09:05:00 Test Item Value Reference Range Interpretation Comments A/G Ratio (test code = A/G Ratio) 1.0 0.7-1.6 [facility] SQFWG0811-34-31 09:05:00 Test Item Value Reference Range Interpretation Comments Globulin (test code = Globulin) 3.3 2.0-4.0 [facility]2015-06-20 09:05:00 Test Item Value Reference Range Interpretation Comments AGAP (test code = AGAP) 9.5 10.0-20.0 [facility]2015-06-20 09:05:00 Test Item Value Reference Range Interpretation Comments eGFR (test code = eGFR) 76 [facility]2015-06-20 09:05:00 Test Item Value Reference Range Interpretation Comments Sodium Lvl (test code = Sodium Lvl) 129 135-145 [facility]2015-06-20 09:05:00 Test Item Value Reference Range Interpretation Comments Bili Total (test code = Bili Total) 0.7 0.2-1.3 [facility]2015-06-20 09:05:00 Test Item Value Reference Range Interpretation Comments AST (test code = AST) 31 See_Comment [Auto mated message] The system which ge nerated this result transmit stuart reference range : <=37. The reference range was not used to interpr et this result as cherry l/abnormal. [facility]2015-06-20 09:05:00 Test Item Value Reference Range Interpretation Comments ALT (test code = ALT) 25 See_Comment [Auto mated message] The system which ge nerated this result transmit stuart reference range : <=65. The reference range was not used to interpr et this result as cherry l/abnormal. [facility]2015-06-20 09:05:00 Test Item Value Reference Range Interpretation Comments Alk Phos (test code = Alk Phos) 32 39-136 [facility]2015-06-20 09:05:00 Test Item Value Reference Range Interpretation Comments Total Protein (test code = Total 6.5 6.4-8.4 Protein) [facility]2015-06-20 09:05:00 Test Item Value Reference Range Interpretation Comments Potassium Lvl (test code = Potassium 3.5 3.5-5.1 Lvl) [facility]2015-06-20 09:05:00 Test Item Value Reference Range Interpretation Comments Albumin Lvl (test code = Albumin Lvl) 3.2 3.5-5.0 [facility]2015-06-20 09:05:00 Test Item Value Reference Range Interpretation Comments CO2 (test code = CO2) 28 24-32 [facility]2015-06-20 09:05:00 Test Item Value Reference Range Interpretation Comments Chloride Lvl (test code = Chloride Lvl) 95 95-109 [facility]2015-06-20 09:05:00 Test Item Value Reference Range Interpretation Comments Calcium Lvl (test code = Calcium Lvl) 8.2 8.5-10.5 [facility]2015-06-20 09:05:00 Test Item Value Reference Range Interpretation Comments Glucose Lvl (test code = Glucose Lvl) 147 70-99 [facility]2015-06-20 09:05:00 Test Item Value Reference Range Interpretation Comments Creatinine Lvl (test code = Creatinine 1.0 0.5-1.4 Lvl) [facility]2015-06-20 09:05:00 Test Item Value Reference Range Interpretation Comments BUN (test code = BUN) 11 7-22 [facility] HospitalWivqgzqJVUVHAVSVAOO7277-28-96 09:05:00 Test Item Value Reference Range Interpretation Comments AGAP (test code = AGAP) 10.5 10.0-20.0 [facility] HospitalZeqtpaqVOAIYFRDBXZE7612-28-75 09:05:00 Test Item Value Reference Range Interpretation Comments Calcium Lvl (test code = Calcium Lvl) 8.4 8.5-10.5 [facility] HospitalVmzvnkeJOZCVJVKXQZF5816-76-16 09:05:00 Test Item Value Reference Range Interpretation Comments CO2 (test code = CO2) 27 24-32 [facility] HospitalYyoqgbsFCLNTZMLFCRH1024-80-44 09:05:00 Test Item Value Reference Range Interpretation Comments Chloride Lvl (test code = Chloride Lvl) 96 95-109 [facility] HospitalYulhhizKLLVEGVTGSDS0692-52-32 09:05:00 Test Item Value Reference Range Interpretation Comments eGFR (test code = eGFR) 76 [facility] HospitalKkbwdrhNIHWPCFGYPCA4796-02-94 09:05:00 Test Item Value Reference Range Interpretation Comments Potassium Lvl (test code = Potassium 3.5 3.5-5.1 Lvl) [facility] HospitalMaqewqxIGKQTLHLRGRH8496-97-68 09:05:00 Test Item Value Reference Range Interpretation Comments Sodium Lvl (test code = Sodium Lvl) 130 135-145 [facility] HospitalHgvytakHXANEUVMPNWC6003-62-61 09:05:00 Test Item Value Reference Range Interpretation Comments Creatinine Lvl (test code = Creatinine 1.0 0.5-1.4 Lvl) [facility] HospitalNxrleqcDCSXRQMMHHLP7927-21-39 09:05:00 Test Item Value Reference Range Interpretation Comments BUN (test code = BUN) 11 7-22 [facility] HospitalFgrjilyXOWJZJKBHWJU6737-20-33 09:05:00 Test Item Value Reference Range Interpretation Comments Glucose Lvl (test code = Glucose Lvl) 145 70-99 [facility] HospitalRsrxnbkFCUQKGIPYV6218-20-90 09:05:00 Test Item Value Reference Range Interpretation Comments Lymphocytes (test code = Lymphocytes) 12.7 20.0-40.0 [facility] HospitalTjrvgfaDKNQYYOBFS1694-38-11 09:05:00 Test Item Value Reference Range Interpretation Comments Segs (test code = Segs) 74.1 45.0-75.0 [facility] HospitalQmrtoofPIGJQEXPVS5841-84-07 09:05:00 Test Item Value Reference Range Interpretation Comments Monocytes (test code = Monocytes) 12.6 2.0-12.0 [facility] HospitalFrwqykhYXQBQITLQG5423-20-49 09:05:00 Test Item Value Reference Range Interpretation Comments Monocytes # (test code 1.6 See_Comment [Aut omated message] The = Monocytes #) system which generated this result tra nsmitted reference range : <=0.8. The reference r jose alfredo was not used to int erpret this result as normal/abnormal . [facility] HospitalIhxfvylLDPWOLRAVX0591-40-00 09:05:00 Test Item Value Reference Range Interpretation Comments Lymphocytes # (test code = Lymphocytes 1.6 1.0-5.5 #) [facility] HospitalAcbkrqgZJVIALKGWV5760-11-84 09:05:00 Test Item Value Reference Range Interpretation Comments Basophils (test code = 0.2 See_Comment [Aut omated message] The Basophils) system which ge nerated this result tra nsmitted reference range : <=1.0. The reference r jose alfredo was not used to int erpret this result as normal/abnormal . [facility] HospitalDjmuuttTAENWDREIB2572-62-21 09:05:00 Test Item Value Reference Range Interpretation Comments Eosinophils (test code = 0.4 See_Comment [A utomated message] The Eosinophils) system which ge nerated this result tra nsmitted reference range : <=4.0. The reference r jose alfredo was not used to int erpret this result as normal/abnormal . [facility] HospitalFfkqicoQFYOQZVQMN5952-62-49 09:05:00 Test Item Value Reference Range Interpretation Comments Segs-Bands # (test code = Segs-Bands #) 9.6 1.5-8.1 [facility] HospitalIrhxzsdRUORKXLNRX2693-25-12 09:05:00 Test Item Value Reference Range Interpretation Comments Eosinophils # (test code 0.1 See_Comment [A utomated message] The = Eosinophils #) system whic h generated this result tra nsmitted reference range : <=0.5. The reference r jose alfredo was not used to int erpret this result as normal/abnormal . [facility] HospitalRgmdwejZKVEJYSYTM9992-25-52 09:05:00 Test Item Value Reference Range Interpretation Comments RBC (test code = RBC) 3.97 4.70-6.10 [facility] HospitalNupfjvnUEVBQPFPDL1647-92-26 09:05:00 Test Item Value Reference Range Interpretation Comments WBC (test code = WBC) 13.0 3.7-10.4 [facility] HospitalMgerfiwAQLYQZOOLP8504-57-86 09:05:00 Test Item Value Reference Range Interpretation Comments MPV (test code = MPV) 9.7 7.4-10.4 [facility] HospitalPrywijcDASJRXUWYS4399-27-04 09:05:00 Test Item Value Reference Range Interpretation Comments RDW (test code = RDW) 13.1 11.5-14.5 [facility] HospitalCardhkfDOTAQDVTHT2174-11-17 09:05:00 Test Item Value Reference Range Interpretation Comments Platelet (test code = Platelet) 202 133-450 [facility] HospitalOgbdnltMYFVNFLVUB4346-06-55 09:05:00 Test Item Value Reference Range Interpretation Comments Hct (test code = Hct) 34.8 42.0-54.0 [facility] HospitalDplbopkFSFYHXQONB8656-36-62 09:05:00 Test Item Value Reference Range Interpretation Comments MCV (test code = MCV) 87.8 80.0-94.0 [facility] HospitalAevjhljDYAMNNJESX8677-66-65 09:05:00 Test Item Value Reference Range Interpretation Comments Hgb (test code = Hgb) 11.9 14.0-18.0 [facility] HospitalRobcdenZAZYSKWEWR0930-06-03 09:05:00 Test Item Value Reference Range Interpretation Comments MCH (test code = MCH) 30.1 pg 27.0-31.0 [facility]TqbntanVMKJZSWCBT6304-85-28 09:05:00 Test Item Value Reference Range Interpretation Comments MCHC (test code = MCHC) 34.3 32.0-36.0 [facility]2015-06-20 09:05:00 Test Item Value Reference Range Interpretation Comments B/C Ratio (test code = B/C Ratio) 11 6-25 [facility]2015-06-20 09:05:00 Test Item Value Reference Range Interpretation Comments A/G Ratio (test code = A/G Ratio) 1.0 0.7-1.6 [facility]2015-06-20 09:05:00 Test Item Value Reference Range Interpretation Comments Globulin (test code = Globulin) 3.3 2.0-4.0 [facility]2015-06-20 09:05:00 Test Item Value Reference Range Interpretation Comments AGAP (test code = AGAP) 9.5 10.0-20.0 [facility]2015-06-20 09:05:00 Test Item Value Reference Range Interpretation Comments eGFR (test code = eGFR) 76 [facility]2015-06-20 09:05:00 Test Item Value Reference Range Interpretation Comments Sodium Lvl (test code = Sodium Lvl) 129 135-145 [facility]2015-06-20 09:05:00 Test Item Value Reference Range Interpretation Comments Bili Total (test code = Bili Total) 0.7 0.2-1.3 [facility]2015-06-20 09:05:00 Test Item Value Reference Range Interpretation Comments AST (test code = AST) 31 See_Comment [Auto mated message] The system which ge nerated this result transmit stuart reference range : <=37. The reference range was not used to interpr et this result as cherry l/abnormal. [facility]2015-06-20 09:05:00 Test Item Value Reference Range Interpretation Comments ALT (test code = ALT) 25 See_Comment [Auto mated message] The system which ge nerated this result transmit stuart reference range : <=65. The reference range was not used to interpr et this result as cherry l/abnormal. [facility]2015-06-20 09:05:00 Test Item Value Reference Range Interpretation Comments Alk Phos (test code = Alk Phos) 32 39-136 [facility]2015-06-20 09:05:00 Test Item Value Reference Range Interpretation Comments Total Protein (test code = Total 6.5 6.4-8.4 Protein) [facility]2015-06-20 09:05:00 Test Item Value Reference Range Interpretation Comments Potassium Lvl (test code = Potassium 3.5 3.5-5.1 Lvl) [facility]2015-06-20 09:05:00 Test Item Value Reference Range Interpretation Comments Albumin Lvl (test code = Albumin Lvl) 3.2 3.5-5.0 [facility]2015-06-20 09:05:00 Test Item Value Reference Range Interpretation Comments CO2 (test code = CO2) 28 24-32 [facility]2015-06-20 09:05:00 Test Item Value Reference Range Interpretation Comments Chloride Lvl (test code = Chloride Lvl) 95 95-109 [facility]2015-06-20 09:05:00 Test Item Value Reference Range Interpretation Comments Calcium Lvl (test code = Calcium Lvl) 8.2 8.5-10.5 [facility]2015-06-20 09:05:00 Test Item Value Reference Range Interpretation Comments Glucose Lvl (test code = Glucose Lvl) 147 70-99 [facility]2015-06-20 09:05:00 Test Item Value Reference Range Interpretation Comments Creatinine Lvl (test code = Creatinine 1.0 0.5-1.4 Lvl) [facility]2015-06-20 09:05:00 Test Item Value Reference Range Interpretation Comments BUN (test code = BUN) 11 7-22 [facility]irrcnuNNGQDWQLDKSK9932-95-00 09:05:00 Test Item Value Reference Range Interpretation Comments AGAP (test code = AGAP) 10.5 10.0-20.0 [facility] HospitalIuzyhxaVSMUMQWMVRJP5607-13-60 09:05:00 Test Item Value Reference Range Interpretation Comments Calcium Lvl (test code = Calcium Lvl) 8.4 8.5-10.5 [facility] HospitalRmkzomzKFBWWMGZTGTB2314-34-01 09:05:00 Test Item Value Reference Range Interpretation Comments CO2 (test code = CO2) -32 [facility] HospitalYprgmduOEDBTDETWEOC2769-65-97 09:05:00 Test Item Value Reference Range Interpretation Comments Chloride Lvl (test code = Chloride Lvl) 96 95-109 [facility] HospitalJujdohuBQOGJMBQJCFK9013-00-26 09:05:00 Test Item Value Reference Range Interpretation Comments eGFR (test code = eGFR) 76 [facility] HospitalIdpuxixTGEZONFELJPU7947-47-28 09:05:00 Test Item Value Reference Range Interpretation Comments Potassium Lvl (test code = Potassium 3.5 3.5-5.1 Lvl) [facility] HospitalBsvgqvhRLLZHMYTAQZV7504-64-86 09:05:00 Test Item Value Reference Range Interpretation Comments Sodium Lvl (test code = Sodium Lvl) 130 135-145 [facility] HospitalOlibrygICHRYSICQWNS4618-62-85 09:05:00 Test Item Value Reference Range Interpretation Comments Creatinine Lvl (test code = Creatinine 1.0 0.5-1.4 Lvl) [facility] HospitalBfkkoywFNXXTUTFWUDK3326-34-65 09:05:00 Test Item Value Reference Range Interpretation Comments BUN (test code = BUN) 11 7-22 [facility] HospitalIfhfmaeFNDPWLALRTUC7345-37-15 09:05:00 Test Item Value Reference Range Interpretation Comments Glucose Lvl (test code = Glucose Lvl) 145 70-99 [facility] HospitalCyentstGFWTGMOYFF4610-33-40 09:05:00 Test Item Value Reference Range Interpretation Comments Lymphocytes (test code = Lymphocytes) 12.7 20.0-40.0 [facility] HospitalWeiwobwPNQGAQSHKW0324-18-62 09:05:00 Test Item Value Reference Range Interpretation Comments Segs (test code = Segs) 74.1 45.0-75.0 [facility] HospitalByuprayIUKPTAZELN6532-81-41 09:05:00 Test Item Value Reference Range Interpretation Comments Monocytes (test code = Monocytes) 12.6 2.0-12.0 [facility] HospitalMxuubufMNUSVHSMFT5849-92-63 09:05:00 Test Item Value Reference Range Interpretation Comments Monocytes # (test code 1.6 See_Comment [Aut omated message] The = Monocytes #) system which generated this result tra nsmitted reference range : <=0.8. The reference r jose alfredo was not used to int erpret this result as normal/abnormal . [facility] HospitalTcfyaesSHBWOBNVUO4997-54-78 09:05:00 Test Item Value Reference Range Interpretation Comments Lymphocytes # (test code = Lymphocytes 1.6 1.0-5.5 #) [facility] HospitalCtwxpujGQIXEIPROM2106-51-79 09:05:00 Test Item Value Reference Range Interpretation Comments Basophils (test code = 0.2 See_Comment [Aut omated message] The Basophils) system which ge nerated this result tra nsmitted reference range : <=1.0. The reference r jose alfredo was not used to int erpret this result as normal/abnormal . [facility] HospitalFhykwdhKVSLBRXDXN7514-24-90 09:05:00 Test Item Value Reference Range Interpretation Comments Eosinophils (test code = 0.4 See_Comment [A utomated message] The Eosinophils) system which ge nerated this result tra nsmitted reference range : <=4.0. The reference r jose alfredo was not used to int erpret this result as normal/abnormal . [facility] HospitalDldsxvdUREODRIFJE7927-79-95 09:05:00 Test Item Value Reference Range Interpretation Comments Segs-Bands # (test code = Segs-Bands #) 9.6 1.5-8.1 [facility] HospitalMppcsjqQPHNNEOFNF5764-81-85 09:05:00 Test Item Value Reference Range Interpretation Comments Eosinophils # (test code 0.1 See_Comment [A utomated message] The = Eosinophils #) system whic h generated this result tra nsmitted reference range : <=0.5. The reference r jose alfredo was not used to int erpret this result as normal/abnormal . [facility] HospitalZqofjymORTFFSORKY5140-50-20 09:05:00 Test Item Value Reference Range Interpretation Comments RBC (test code = RBC) 3.97 4.70-6.10 [facility] HospitalBnzbtijUMFGCFHETT8108-58-32 09:05:00 Test Item Value Reference Range Interpretation Comments WBC (test code = WBC) 13.0 3.7-10.4 [facility] HospitalFqsugdgEXJOXIOHDF4104-15-30 09:05:00 Test Item Value Reference Range Interpretation Comments MPV (test code = MPV) 9.7 7.4-10.4 [facility] HospitalZekocofJMBDIBDIAU8775-84-66 09:05:00 Test Item Value Reference Range Interpretation Comments RDW (test code = RDW) 13.1 11.5-14.5 [facility] HospitalPqxlidtURVZOLCQQM2434-87-27 09:05:00 Test Item Value Reference Range Interpretation Comments Platelet (test code = Platelet) 202 133-450 [facility]YrutjsxDBMKGSSJTO2380-06-44 09:05:00 Test Item Value Reference Range Interpretation Comments Hct (test code = Hct) 34.8 42.0-54.0 [facility]StywvlqJAQXSQSZPG9831-18-03 09:05:00 Test Item Value Reference Range Interpretation Comments MCV (test code = MCV) 87.8 80.0-94.0 [facility] HospitalAkgrelkMELQWIWDIX0607-68-83 09:05:00 Test Item Value Reference Range Interpretation Comments Hgb (test code = Hgb) 11.9 14.0-18.0 [facility] HospitalOgtgfopBENYJPLLJI7522-01-49 09:05:00 Test Item Value Reference Range Interpretation Comments MCH (test code = MCH) 30.1 pg 27.0-31.0 [facility] HospitalIydwugwXNGFKNPAEL2748-27-33 09:05:00 Test Item Value Reference Range Interpretation Comments MCHC (test code = MCHC) 34.3 32.0-36.0 [facility]THYRO[facility] MKMOG8416-04-31 05:11:00 Test Item Value Reference Range Interpretation Comments TSH (test code = TSH) 1.790 0.360-3.740 [facility]oundCHEM FUCZV0629-57-21 05:11:00 Test Item Value Reference Range Interpretation Comments Lactic Acid Lvl (test code = Lactic 1.1 0.5-2.2 Acid Lvl) [facility]oundGttophoBEVKWA6902-60-78 05:11:00 Test Item Value Reference Range Interpretation Comments VLDL (test code = VLDL) 14 [facility]oundOzupuexYLFLUY8667-35-19 05:11:00 Test Item Value Reference Range Interpretation Comments LDL (Calculated) (test code = LDL 25 (Calculated)) [facility]oundPkqtvtlPMYLDA5684-83-48 05:11:00 Test Item Value Reference Range Interpretation Comments Chol (test code = Chol) 91 [facility]oundXtvanbrDGTJMW6949-95-62 05:11:00 Test Item Value Reference Range Interpretation Comments CHD Risk (test code = CHD Risk) 1.75 4.00-7.30 [facility]oundBwwjukyASPEXQ9637-89-92 05:11:00 Test Item Value Reference Range Interpretation Comments HDL (test code = HDL) 52 [facility] MoundJilrwqkSHYVBH7200-69-25 05:11:00 Test Item Value Reference Range Interpretation Comments Trig (test code = Trig) 71 [facility]2015-06-20 05:11:00 Test Item Value Reference Range Interpretation Comments TSH (test code = TSH) 1.790 0.360-3.740 [facility]2015-06-20 05:11:00 Test Item Value Reference Range Interpretation Comments Lactic Acid Lvl (test code = Lactic 1.1 0.5-2.2 Acid Lvl) [facility]XdrhokpIHEQGR8119-79-44 05:11:00 Test Item Value Reference Range Interpretation Comments VLDL (test code = VLDL) 14 [facility] CenterZbspydvXZVSGU9142-88-31 05:11:00 Test Item Value Reference Range Interpretation Comments LDL (Calculated) (test code = LDL 25 (Calculated)) [facility] CenterFsgzwxlEBIFQD8862-14-60 05:11:00 Test Item Value Reference Range Interpretation Comments Chol (test code = Chol) 91 [facility] CenterDmqvzdqHDSXOC3288-64-74 05:11:00 Test Item Value Reference Range Interpretation Comments CHD Risk (test code = CHD Risk) 1.75 4.00-7.30 [facility] CenterUlvjmbpANLHKL1140-64-38 05:11:00 Test Item Value Reference Range Interpretation Comments HDL (test code = HDL) 52 [facility] CenterNyjtmkiLSPAUC1333-41-38 05:11:00 Test Item Value Reference Range Interpretation Comments Trig (test code = Trig) 71 [facility]2015-06-20 05:11:00 Test Item Value Reference Range Interpretation Comments TSH (test code = TSH) 1.790 0.360-3.740 [facility]2015-06-20 05:11:00 Test Item Value Reference Range Interpretation Comments Lactic Acid Lvl (test code = Lactic 1.1 0.5-2.2 Acid Lvl) [facility] CenterDzrraesJTEZRI9767-66-26 05:11:00 Test Item Value Reference Range Interpretation Comments VLDL (test code = VLDL) 14 [facility] CenterXajwsbsSNABHM0139-50-13 05:11:00 Test Item Value Reference Range Interpretation Comments LDL (Calculated) (test code = LDL 25 (Calculated)) [facility] CenterGeqvhqwYPTGOV4080-83-29 05:11:00 Test Item Value Reference Range Interpretation Comments Chol (test code = Chol) 91 [facility] CenterFwjengeXRULBV1695-62-81 05:11:00 Test Item Value Reference Range Interpretation Comments CHD Risk (test code = CHD Risk) 1.75 4.00-7.30 [facility]oundRtnxromYHTHHV4863-28-97 05:11:00 Test Item Value Reference Range Interpretation Comments HDL (test code = HDL) 52 [facility] CenterUihhxehENGRFY8005-02-05 05:11:00 Test Item Value Reference Range Interpretation Comments Trig (test code = Trig) 71 [facility]oundBACTERIAL - [id number] 00:29:00 Test Item Value Reference Range Interpretation Comments MRSA by PCR (test Negative 16(02/17/15 7:29 code = MRSA by PCR) PM) [facility]oundBACTERIAL - [id number] 00:29:00 Test Item Value Reference Range Interpretation Comments MRSA by PCR (test Negative 16(02/17/15 7:29 code = MRSA by PCR) PM) [facility]oundBACTERIAL - [id number] 00:29:00 Test Item Value Reference Range Interpretation Comments MRSA by PCR (test Negative 16(02/17/15 7:29 code = MRSA by PCR) PM) [facility]oundBill.Forward [id number] 00:28:00 Test Item Value Reference Range Interpretation Comments Lactic Acid Lvl (test code = Lactic 1.0 0.5-2.2 Acid Lvl) [facility]LueugztRIDNHDHGJH7039-29-62 00:28:00 Test Item Value Reference Range Interpretation Comments Platelet (test code = Platelet) 193 133-450 [facility] HospitalHhqlfiqFOWRKUOBKG2928-16-42 00:28:00 Test Item Value Reference Range Interpretation Comments PTT (test code = PTT) 25.3 s 22.9-35.8 [facility] OULTB6426-05-09 00:28:00 Test Item Value Reference Range Interpretation Comments Lactic Acid Lvl (test code = Lactic 1.0 0.5-2.2 Acid Lvl) [facility] HospitalBdurzooBWQJAFEAVV6727-84-08 00:28:00 Test Item Value Reference Range Interpretation Comments Platelet (test code = Platelet) 193 133-450 [facility] HospitalXyaawhoMVELGKDBDX2891-38-71 00:28:00 Test Item Value Reference Range Interpretation Comments PTT (test code = PTT) 25.3 s 22.9-35.8 [facility]oundBill[facility] [id number] 00:28:00 Test Item Value Reference Range Interpretation Comments Lactic Acid Lvl (test code = Lactic 1.0 0.5-2.2 Acid Lvl) [facility] MoundRioeiwaPKMUNCOMWG5431-33-30 00:28:00 Test Item Value Reference Range Interpretation Comments Platelet (test code = Platelet) 193 133-450 [facility] MoundUeqzfbgCCBMTSEUWD9419-69-51 00:28:00 Test Item Value Reference Range Interpretation Comments PTT (test code = PTT) 25.3 s 22.9-35.8 [facility]DR[facility] [id number] 21:40:00 Test Item Value Reference Range Interpretation Comments UDS Note (test code = See Note 8(02/17/15 4:40 UDS Note) PM) [facility]DR[facility] [id number] 21:40:00 Test Item Value Reference Range Interpretation Comments U Phencyc Scr (test Negative *NA*(02/17/15 code = U Phencyc Scr) 4:40 PM) [facility]DR[facility] [id number] 21:40:00 Test Item Value Reference Range Interpretation Comments U Opiate Scr (test Negative *NA*(02/17/15 code = U Opiate Scr) 4:40 PM) [facility]DR[facility] [id number] 21:40:00 Test Item Value Reference Range Interpretation Comments U Cannab Scr (test Negative *NA*(02/17/15 code = U Cannab Scr) 4:40 PM) [facility]DR[facility] [id number] 21:40:00 Test Item Value Reference Range Interpretation Comments U Cocaine Scr (test Positive *ABN*(02/17/15 code = U Cocaine Scr) 4:40 PM) [facility] [id number] 21:40:00 Test Item Value Reference Range Interpretation Comments U Benzodia Scr (test Negative *NA*(02/17/15 code = U Benzodia Scr) 4:40 PM) [facility] [id number] 21:40:00 Test Item Value Reference Range Interpretation Comments U Marilee Scr (test code Negative *NA*(02/17/15 = U Marilee Scr) 4:40 PM) [facility] [id number] 21:40:00 Test Item Value Reference Range Interpretation Comments U Amph Scr (test code Negative *NA*(02/17/15 = U Amph Scr) 4:40 PM) [facility] AND [id number] 21:40:00 Test Item Value Reference Range Interpretation Comments UA Blood (test code = Negative (02/17/15 4:40 UA Blood) PM) [facility] AND [id number] 21:40:00 Test Item Value Reference Range Interpretation Comments UA Glucose (test code = UA >=1000 mg/dL Glucose) [facility] AND [id number] 21:40:00 Test Item Value Reference Range Interpretation Comments UA Bili (test code = Negative *NA*(02/17/15 UA Bili) 4:40 PM) [facility] AND [id number] 21:40:00 Test Item Value Reference Range Interpretation Comments UA Color (test code = Yellow *NA*(02/17/15 UA Color) 4:40 PM) [facility] AND [id number] 21:40:00 Test Item Value Reference Range Interpretation Comments UA Spec Grav (test code = UA Spec 1.010 1 Grav) [facility] AND [id number] 21:40:00 Test Item Value Reference Range Interpretation Comments UA Turbidity (test code = Clear (02/17/15 4:40 UA Turbidity) PM) [facility] AND [id number] 21:40:00 Test Item Value Reference Range Interpretation Comments UA pH (test code = UA pH) 6.0 1 5.0-8.0 [facility] AND [id number] 21:40:00 Test Item Value Reference Range Interpretation Comments UA Leuk Est (test Negative (02/17/15 4:40 code = UA Leuk Est) PM) [facility] AND [id number] 21:40:00 Test Item Value Reference Range Interpretation Comments UA Nitrite (test code Negative (02/17/15 4:40 = UA Nitrite) PM) [facility] AND [id number] 21:40:00 Test Item Value Reference Range Interpretation Comments UA Urobilinogen (test code = UA 0.2 0.1-1.0 Urobilinogen) [facility] AND [id number] 21:40:00 Test Item Value Reference Range Interpretation Comments UA Ketones (test code = UA Negative mg/dL Ketones) [facility] [id number] 21:40:00 Test Item Value Reference Range Interpretation Comments UA Protein (test code = UA Negative mg/dL Protein) [facility] [id number] 21:40:00 Test Item Value Reference Range Interpretation Comments UA RBC (test code = 0-2 /HPF See_Comment [Automa stuart message] The UA RBC) system which ge nerated this result tra nsmitted reference range : <=2. The reference range was not used to interpr et this result as cherry l/abnormal. [facility] [id number] 21:40:00 Test Item Value Reference Range Interpretation Comments UA Bacteria (test code = UA Few /HPF Bacteria) [facility] [id number] 21:40:00 Test Item Value Reference Range Interpretation Comments UA Sq Epi (test code = UA Sq Epi) Few /LPF [facility] [id number] 21:40:00 Test Item Value Reference Range Interpretation Comments UA WBC (test code = UA WBC) 0-2 /HPF [facility] [id number] 21:40:00 Test Item Value Reference Range Interpretation Comments UDS Note (test code = See Note 8(02/17/15 4:40 UDS Note) PM) [facility] [id number] 21:40:00 Test Item Value Reference Range Interpretation Comments U Phencyc Scr (test Negative *NA*(02/17/15 code = U Phencyc Scr) 4:40 PM) [facility] [id number] 21:40:00 Test Item Value Reference Range Interpretation Comments U Opiate Scr (test Negative *NA*(02/17/15 code = U Opiate Scr) 4:40 PM) [facility] [id number] 21:40:00 Test Item Value Reference Range Interpretation Comments U Cannab Scr (test Negative *NA*(02/17/15 code = U Cannab Scr) 4:40 PM) [facility] [id number] 21:40:00 Test Item Value Reference Range Interpretation Comments U Cocaine Scr (test Positive *ABN*(02/17/15 code = U Cocaine Scr) 4:40 PM) [facility] [id number] 21:40:00 Test Item Value Reference Range Interpretation Comments U Benzodia Scr (test Negative *NA*(02/17/15 code = U Benzodia Scr) 4:40 PM) [facility] [id number] 21:40:00 Test Item Value Reference Range Interpretation Comments U Marilee Scr (test code Negative *NA*(02/17/15 = U Marilee Scr) 4:40 PM) [facility] [id number] 21:40:00 Test Item Value Reference Range Interpretation Comments U Amph Scr (test code Negative *NA*(02/17/15 = U Amph Scr) 4:40 PM) [facility] [id number] 21:40:00 Test Item Value Reference Range Interpretation Comments UA Blood (test code = Negative (02/17/15 4:40 UA Blood) PM) [facility] [id number] 21:40:00 Test Item Value Reference Range Interpretation Comments UA Glucose (test code = UA >=1000 mg/dL Glucose) [facility] [id number] 21:40:00 Test Item Value Reference Range Interpretation Comments UA Bili (test code = Negative *NA*(02/17/15 UA Bili) 4:40 PM) [facility] [id number] 21:40:00 Test Item Value Reference Range Interpretation Comments UA Color (test code = Yellow *NA*(02/17/15 UA Color) 4:40 PM) [facility] [id number] 21:40:00 Test Item Value Reference Range Interpretation Comments UA Spec Grav (test code = UA Spec 1.010 1 Grav) [facility] [id number] 21:40:00 Test Item Value Reference Range Interpretation Comments UA Turbidity (test code = Clear (02/17/15 4:40 UA Turbidity) PM) [facility] [id number] 21:40:00 Test Item Value Reference Range Interpretation Comments UA pH (test code = UA pH) 6.0 1 5.0-8.0 [facility] [id number] 21:40:00 Test Item Value Reference Range Interpretation Comments UA Leuk Est (test Negative (02/17/15 4:40 code = UA Leuk Est) PM) [facility] [id number] 21:40:00 Test Item Value Reference Range Interpretation Comments UA Nitrite (test code Negative (02/17/15 4:40 = UA Nitrite) PM) [facility] [id number] 21:40:00 Test Item Value Reference Range Interpretation Comments UA Urobilinogen (test code = UA 0.2 0.1-1.0 Urobilinogen) [facility] [id number] 21:40:00 Test Item Value Reference Range Interpretation Comments UA Ketones (test code = UA Negative mg/dL Ketones) [facility] [id number] 21:40:00 Test Item Value Reference Range Interpretation Comments UA Protein (test code = UA Negative mg/dL Protein) [facility] [id number] 21:40:00 Test Item Value Reference Range Interpretation Comments UA RBC (test code = 0-2 /HPF See_Comment [Automa stuart message] The UA RBC) system which ge nerated this result tra nsmitted reference range : <=2. The reference range was not used to interpr et this result as cherry l/abnormal. [facility] [id number] 21:40:00 Test Item Value Reference Range Interpretation Comments UA Bacteria (test code = UA Few /HPF Bacteria) [facility] [id number] 21:40:00 Test Item Value Reference Range Interpretation Comments UA Sq Epi (test code = UA Sq Epi) Few /LPF [facility] [id number] 21:40:00 Test Item Value Reference Range Interpretation Comments UA WBC (test code = UA WBC) 0-2 /HPF [facility] [id number] 21:40:00 Test Item Value Reference Range Interpretation Comments UDS Note (test code = See Note 8(02/17/15 4:40 UDS Note) PM) [facility] [id number] 21:40:00 Test Item Value Reference Range Interpretation Comments U Phencyc Scr (test Negative *NA*(02/17/15 code = U Phencyc Scr) 4:40 PM) [facility] [id number] 21:40:00 Test Item Value Reference Range Interpretation Comments U Opiate Scr (test Negative *NA*(02/17/15 code = U Opiate Scr) 4:40 PM) [facility] [id number] 21:40:00 Test Item Value Reference Range Interpretation Comments U Cannab Scr (test Negative *NA*(02/17/15 code = U Cannab Scr) 4:40 PM) [facility] [id number] 21:40:00 Test Item Value Reference Range Interpretation Comments U Cocaine Scr (test Positive *ABN*(02/17/15 code = U Cocaine Scr) 4:40 PM) [facility] [id number] 21:40:00 Test Item Value Reference Range Interpretation Comments U Benzodia Scr (test Negative *NA*(02/17/15 code = U Benzodia Scr) 4:40 PM) [facility] [id number] 21:40:00 Test Item Value Reference Range Interpretation Comments U Marilee Scr (test code Negative *NA*(02/17/15 = U Marilee Scr) 4:40 PM) [facility] [id number] 21:40:00 Test Item Value Reference Range Interpretation Comments U Amph Scr (test code Negative *NA*(02/17/15 = U Amph Scr) 4:40 PM) [facility] [id number] 21:40:00 Test Item Value Reference Range Interpretation Comments UA Blood (test code = Negative (02/17/15 4:40 UA Blood) PM) [facility] [id number] 21:40:00 Test Item Value Reference Range Interpretation Comments UA Glucose (test code = UA >=1000 mg/dL Glucose) [facility] [id number] 21:40:00 Test Item Value Reference Range Interpretation Comments UA Bili (test code = Negative *NA*(02/17/15 UA Bili) 4:40 PM) [facility] [id number] 21:40:00 Test Item Value Reference Range Interpretation Comments UA Color (test code = Yellow *NA*(02/17/15 UA Color) 4:40 PM) [facility] [id number] 21:40:00 Test Item Value Reference Range Interpretation Comments UA Spec Grav (test code = UA Spec 1.010 1 Grav) [facility] [id number] 21:40:00 Test Item Value Reference Range Interpretation Comments UA Turbidity (test code = Clear (02/17/15 4:40 UA Turbidity) PM) [facility] AND [id number] 21:40:00 Test Item Value Reference Range Interpretation Comments UA pH (test code = UA pH) 6.0 1 5.0-8.0 [facility] [id number] 21:40:00 Test Item Value Reference Range Interpretation Comments UA Leuk Est (test Negative (02/17/15 4:40 code = UA Leuk Est) PM) [facility] AND [id number] 21:40:00 Test Item Value Reference Range Interpretation Comments UA Nitrite (test code Negative (02/17/15 4:40 = UA Nitrite) PM) [facility] AND [id number] 21:40:00 Test Item Value Reference Range Interpretation Comments UA Urobilinogen (test code = UA 0.2 0.1-1.0 Urobilinogen) [facility] AND [id number] 21:40:00 Test Item Value Reference Range Interpretation Comments UA Ketones (test code = UA Negative mg/dL Ketones) [facility] AND [id number] 21:40:00 Test Item Value Reference Range Interpretation Comments UA Protein (test code = UA Negative mg/dL Protein) [facility] AND [id number] 21:40:00 Test Item Value Reference Range Interpretation Comments UA RBC (test code = 0-2 /HPF See_Comment [Automa stuart message] The UA RBC) system which ge nerated this result tra nsmitted reference range : <=2. The reference range was not used to interpr et this result as cherry l/abnormal. [facility] AND [id number] 21:40:00 Test Item Value Reference Range Interpretation Comments UA Bacteria (test code = UA Few /HPF Bacteria) [facility] AND [id number] 21:40:00 Test Item Value Reference Range Interpretation Comments UA Sq Epi (test code = UA Sq Epi) Few /LPF [facility] [id number] 21:40:00 Test Item Value Reference Range Interpretation Comments UA WBC (test code = UA WBC) 0-2 /HPF [facility] [id number] 21:12:00 Test Item Value Reference Range Interpretation Comments Osmolality (test code = Osmolality) 255 280-300 [facility] [id number] 21:12:00 Test Item Value Reference Range Interpretation Comments Osmolality (test code = Osmolality) 255 280-300 [facility] [id number] 21:12:00 Test Item Value Reference Range Interpretation Comments Osmolality (test code = Osmolality) 255 280-300 [facility]2015-06-19 20:00:00 Test Item Value Reference Range Interpretation Comments U Sodium (test code = U Sodium) 53 [facility]2015-06-19 20:00:00 Test Item Value Reference Range Interpretation Comments U Osmolality (test code = U Osmolality) 344 300-800 [facility]2015-06-19 20:00:00 Test Item Value Reference Range Interpretation Comments U Creatinine (test code = U Creatinine) 36.2 [facility]2015-06-19 20:00:00 Test Item Value Reference Range Interpretation Comments U Chloride (test code = U Chloride) 72 [facility]2015-06-19 20:00:00 Test Item Value Reference Range Interpretation Comments U Sodium (test code = U Sodium) 53 [facility]2015-06-19 20:00:00 Test Item Value Reference Range Interpretation Comments U Osmolality (test code = U Osmolality) 344 300-800 [facility]2015-06-19 20:00:00 Test Item Value Reference Range Interpretation Comments U Creatinine (test code = U Creatinine) 36.2 [facility]2015-06-19 20:00:00 Test Item Value Reference Range Interpretation Comments U Chloride (test code = U Chloride) 72 [facility]2015-06-19 20:00:00 Test Item Value Reference Range Interpretation Comments U Sodium (test code = U Sodium) 53 [facility]2015-06-19 20:00:00 Test Item Value Reference Range Interpretation Comments U Osmolality (test code = U Osmolality) 344 300-800 [facility]2015-06-19 20:00:00 Test Item Value Reference Range Interpretation Comments U Creatinine (test code = U Creatinine) 36.2 [facility]2015-06-19 20:00:00 Test Item Value Reference Range Interpretation Comments U Chloride (test code = U Chloride) 72 [facility]2015-06-19 16:09:00 Test Item Value Reference Range Interpretation Comments CK MB (test code = CK MB) 7.2 0.5-3.6 [facility] [id number] 16:09:00 Test Item Value Reference Range Interpretation Comments BNP (test code = BNP) 92 [facility] [id number] 16:09:00 Test Item Value Reference Range Interpretation Comments Total CK (test code = Total CK) 493 12-191 [facility] [id number] 16:09:00 Test Item Value Reference Range Interpretation Comments CK MB Index (test 1.5 See_Comment [Automate d message] The code = CK MB Index) system w [facility] generated this result transmit stuart reference range : <=2.5. The reference range was not used to interpr et this result as cherry l/abnormal. [facility]2015-06-[facility] 16:09:00 Test Item Value Reference Range Interpretation Comments Troponin-I (test code 0.11 See_Comment [Auto mated message] The = Troponin-I) system which g enerated this result transmit stuart reference range : <=0.40. The reference r jose alfredo was not used to interpr et this result as cherry l/abnormal. [facility] [employer]2015-06-19 16:09:00 Test Item Value Reference Range Interpretation Comments Procalcitonin Lvl <0.05 ng/mL See_Comment [Automate d message] (test code = The system ic h Procalcitonin Lvl) generated this result transmit stuart reference range : <=0.10. The reference range was not used to interpret this result as normal/abnormal . [facility] [employer]2015-06-19 16:09:00 Test Item Value Reference Range Interpretation Comments Bili Total (test code = Bili Total) 0.7 0.2-1.3 [facility] [employer]2015-06-19 16:09:00 Test Item Value Reference Range Interpretation Comments AST (test code = AST) 28 See_Comment [Auto mated message] The system which ge nerated this result transmit stuart reference range : <=37. The reference range was not used to interpr et this result as cherry l/abnormal. [employer]2015-06-19 16:09:00 Test Item Value Reference Range Interpretation Comments Globulin (test code = Globulin) 3.5 2.0-4.0 [facility] [employer] [id number] 16:09:00 Test Item Value Reference Range Interpretation Comments Total Protein (test code = Total 7.3 6.4-8.4 Protein) [facility] [employer] [id number] 16:09:00 Test Item Value Reference Range Interpretation Comments Albumin Lvl (test code = Albumin Lvl) 3.8 3.5-5.0 [facility] [employer] [id number] 16:09:00 Test Item Value Reference Range Interpretation Comments Alk Phos (test code = Alk Phos) 38 39-136 [facility] [employer] [id number] 16:09:00 Test Item Value Reference Range Interpretation Comments ALT (test code = ALT) 24 See_Comment [Auto mated message] The system which ge nerated this result transmit stuart reference range : <=65. The reference range was not used to interpr et this result as cherry l/abnormal. [facility] [employer] [id number] 16:09:00 Test Item Value Reference Range Interpretation Comments A/G Ratio (test code = A/G Ratio) 1.1 0.7-1.6 [facility] [employer]2015-06-19 16:09:00 Test Item Value Reference Range Interpretation Comments B/C Ratio (test code = B/C Ratio) 11 6-25 [facility] [employer]2015-06-19 16:09:00 Test Item Value Reference Range Interpretation Comments CK MB (test code = CK MB) 7.2 0.5-3.6 [facility] [employer]2015-06-19 16:09:00 Test Item Value Reference Range Interpretation Comments BNP (test code = BNP) 92 [facility] [employer]2015-06-19 16:09:00 Test Item Value Reference Range Interpretation Comments Total CK (test code = Total CK) 493 12-191 [facility]2015-06-19 16:09:00 Test Item Value Reference Range Interpretation Comments CK MB Index (test 1.5 See_Comment [Automate d message] The code = CK MB Index) system w [facility] generated this result transmit stuart reference range : <=2.5. The reference range was not used to interpr et this result as cherry l/abnormal. [facility]oundCARDI[facility] [id number] 16:09:00 Test Item Value Reference Range Interpretation Comments Troponin-I (test code 0.11 See_Comment [Auto mated message] The = Troponin-I) system which g enerated this result transmit stuart reference range : <=0.40. The reference r jose alfredo was not used to interpr et this result as cherry l/abnormal. [facility] [employer] [id number] 16:09:00 Test Item Value Reference Range Interpretation Comments Procalcitonin Lvl <0.05 ng/mL See_Comment [Automate d message] (test code = The system whic h Procalcitonin Lvl) generated this result transmit stuart reference range : <=0.10. The reference range was not used to interpret this result as normal/abnormal . [facility]oundBill.[facility] [id number] 16:09:00 Test Item Value Reference Range Interpretation Comments Bili Total (test code = Bili Total) 0.7 0.2-1.3 [facility]ound[facility] [id number] 16:09:00 Test Item Value Reference Range Interpretation Comments AST (test code = AST) 28 See_Comment [Auto mated message] The system which ge nerated this result transmit stuart reference range : <=37. The reference range was not used to interpr et this result as cherry l/abnormal. [facility] [id number] 16:09:00 Test Item Value Reference Range Interpretation Comments Globulin (test code = Globulin) 3.5 2.0-4.0 [facility] [id number] 16:09:00 Test Item Value Reference Range Interpretation Comments Total Protein (test code = Total 7.3 6.4-8.4 Protein) [facility]oundBill[facility] [id number] 16:09:00 Test Item Value Reference Range Interpretation Comments Albumin Lvl (test code = Albumin Lvl) 3.8 3.5-5.0 [facility] [id number] 16:09:00 Test Item Value Reference Range Interpretation Comments Alk Phos (test code = Alk Phos) 38 39-136 [facility] [id number] 16:09:00 Test Item Value Reference Range Interpretation Comments ALT (test code = ALT) 24 See_Comment [Auto mated message] The system which ge nerated this result transmit stuart reference range : <=65. The reference range was not used to interpr et this result as cherry l/abnormal. [employer] [id number] 16:09:00 Test Item Value Reference Range Interpretation Comments A/G Ratio (test code = A/G Ratio) 1.1 0.7-1.6 [facility] [employer] [id number] 16:09:00 Test Item Value Reference Range Interpretation Comments B/C Ratio (test code = B/C Ratio) 11 6-25 [facility] INNOBI [id number] 16:09:00 Test Item Value Reference Range Interpretation Comments CK MB (test code = CK MB) 7.2 0.5-3.6 [facility] INNOBI [id number] 16:09:00 Test Item Value Reference Range Interpretation Comments BNP (test code = BNP) 92 [facility]2015-06-19 16:09:00 Test Item Value Reference Range Interpretation Comments Total CK (test code = Total CK) 493 12-191 [facility]roeSocialplex [facility] [id number] 16:09:00 Test Item Value Reference Range Interpretation Comments CK MB Index (test 1.5 See_Comment [Automate d message] The code = CK MB Index) system w [facility] generated this result transmit stuart reference range : <=2.5. The reference range was not used to interpr et this result as cherry l/abnormal. [facility]2015-06-19 16:09:00 Test Item Value Reference Range Interpretation Comments Troponin-I (test code 0.11 See_Comment [Auto mated message] The = Troponin-I) system which g enerated this result transmit stuart reference range : <=0.40. The reference r jose alfredo was not used to interpr et this result as cherry l/abnormal. [facility] [employer] [id number] 16:09:00 Test Item Value Reference Range Interpretation Comments Procalcitonin Lvl <0.05 ng/mL See_Comment [Automate d message] (test code = The system whic h Procalcitonin Lvl) generated this result transmit stuart reference range : <=0.10. The reference range was not used to interpret this result as normal/abnormal . [facility]2015-06-19 16:09:00 Test Item Value Reference Range Interpretation Comments Bili Total (test code = Bili Total) 0.7 0.2-1.3 [facility]2015-06-19 16:09:00 Test Item Value Reference Range Interpretation Comments AST (test code = AST) 28 See_Comment [Auto mated message] The system which ge nerated this result transmit stuart reference range : <=37. The reference range was not used to interpr et this result as cherry l/abnormal. [facility]2015-06-19 16:09:00 Test Item Value Reference Range Interpretation Comments Globulin (test code = Globulin) 3.5 2.0-4.0 [facility]2015-06-19 16:09:00 Test Item Value Reference Range Interpretation Comments Total Protein (test code = Total 7.3 6.4-8.4 Protein) [facility]2015-06-19 16:09:00 Test Item Value Reference Range Interpretation Comments Albumin Lvl (test code = Albumin Lvl) 3.8 3.5-5.0 [facility]2015-06-19 16:09:00 Test Item Value Reference Range Interpretation Comments Alk Phos (test code = Alk Phos) 38 39-136 [facility]2015-06-19 16:09:00 Test Item Value Reference Range Interpretation Comments ALT (test code = ALT) 24 See_Comment [Auto mated message] The system which ge nerated this result transmit stuart reference range : <=65. The reference range was not used to interpr et this result as cherry l/abnormal. [facility]2015-06-19 16:09:00 Test Item Value Reference Range Interpretation Comments A/G Ratio (test code = A/G Ratio) 1.1 0.7-1.6 [facility]2015-06-19 16:09:00 Test Item Value Reference Range Interpretation Comments B/C Ratio (test code = B/C Ratio) 11 6-25 [facility] [id number] 15:08:00 Test Item Value Reference Range Interpretation Comments Basophils # (test code 0.1 See_Comment [Aut omated message] The = Basophils #) system which generated this result tra nsmitted reference range : <=0.2. The reference r jose alfredo was not used to int erpret this result as normal/abnormal . [facility] [id number] 15:08:00 Test Item Value Reference Range Interpretation Comments Segs-Bands # (test code = Segs-Bands #) 10.7 1.5-8.1 [facility] H[id number] 15:08:00 Test Item Value Reference Range Interpretation Comments Lymphocytes # (test code = Lymphocytes 1.2 1.0-5.5 #) [facility] [id number] 15:08:00 Test Item Value Reference Range Interpretation Comments Monocytes # (test code 1.5 See_Comment [Aut omated message] The = Monocytes #) system which generated this result tra nsmitted reference range : <=0.8. The reference r jose alfredo was not used to int erpret this result as normal/abnormal . [facility] [id number] 15:08:00 Test Item Value Reference Range Interpretation Comments Segs (test code = Segs) 79.6 45.0-75.0 [facility] HospitalIlteagpOSXGUMQWBW3905-57-35 15:08:00 Test Item Value Reference Range Interpretation Comments Lymphocytes (test code = Lymphocytes) 8.8 20.0-40.0 [facility] H[id number] 15:08:00 Test Item Value Reference Range Interpretation Comments Monocytes (test code = Monocytes) 10.8 2.0-12.0 [facility] HospitalQmoypzoXLHRVTNTUV5449-01-15 15:08:00 Test Item Value Reference Range Interpretation Comments Basophils (test code = 0.5 See_Comment [Aut omated message] The Basophils) system which ge nerated this result tra nsmitted reference range : <=1.0. The reference r jose alfredo was not used to int erpret this result as normal/abnormal . [facility] H[id number] 15:08:00 Test Item Value Reference Range Interpretation Comments Eosinophils (test code = 0.3 See_Comment [A utomated message] The Eosinophils) system which ge nerated this result tra nsmitted reference range : <=4.0. The reference r jose alfredo was not used to int erpret this result as normal/abnormal . [facility] HospitalZcahoyjDTUPFIATKY8744-03-97 15:08:00 Test Item Value Reference Range Interpretation Comments PT (test code = PT) 13.3 s 12.0-14.7 [facility] HospitalLnxtowtOMZVPXLVQL0107-60-87 15:08:00 Test Item Value Reference Range Interpretation Comments PTT (test code = PTT) 26.3 s 22.9-35.8 [facility] HospitalFpxsccoWMYXJQKFKK2635-65-00 15:08:00 Test Item Value Reference Range Interpretation Comments INR (test code = INR) 1.01 0.85-1.17 [facility] HospitalUkezcjmBPETGJEAZR4377-66-40 15:08:00 Test Item Value Reference Range Interpretation Comments MCHC (test code = MCHC) 33.5 32.0-36.0 [facility] Hospit[id number] 15:08:00 Test Item Value Reference Range Interpretation Comments RDW (test code = RDW) 13.0 11.5-14.5 [facility] Ho[id number] 15:08:00 Test Item Value Reference Range Interpretation Comments Hct (test code = Hct) 39.1 42.0-54.0 [facility] HospitalZjxlvkeEUUDRFRFYZ3353-84-50 15:08:00 Test Item Value Reference Range Interpretation Comments WBC (test code = WBC) 13.5 3.7-10.4 [facility] Hos[id number] 15:08:00 Test Item Value Reference Range Interpretation Comments MCV (test code = MCV) 90.1 80.0-94.0 [facility] HospitalKakmbweXATYDRWBHG1313-94-29 15:08:00 Test Item Value Reference Range Interpretation Comments MCH (test code = MCH) 30.2 pg 27.0-31.0 [facility] Hos[id number] 15:08:00 Test Item Value Reference Range Interpretation Comments MPV (test code = MPV) 9.5 7.4-10.4 [facility] HospitalUctzfkoUAQNXVASJE5371-37-54 15:08:00 Test Item Value Reference Range Interpretation Comments RBC (test code = RBC) 4.34 4.70-6.10 [facility] HospitalVgafkkbUNOKYQBKKU0463-22-04 15:08:00 Test Item Value Reference Range Interpretation Comments Hgb (test code = Hgb) 13.1 14.0-18.0 [facility] MoundZhvbfvkNDLIFUVDFE6270-16-48 15:08:00 Test Item Value Reference Range Interpretation Comments Etoh (%) (test code = Etoh (%)) no gt [facility]roeUwvusdoANXLTEYWCE8349-33-04 15:08:00 Test Item Value Reference Range Interpretation Comments Ethanol Lvl (test code = Ethanol Lvl) no gt [facility] AND [id number] 15:08:00 Test Item Value Reference Range Interpretation Comments UA Ketones (test code Negative *NA*(02/17/15 = UA Ketones) 10:08 AM) [facility] AND [id number] 15:08:00 Test Item Value Reference Range Interpretation Comments UA Bili (test code = Negative *NA*(02/17/15 UA Bili) 10:08 AM) [facility] AND [id number] 15:08:00 Test Item Value Reference Range Interpretation Comments UA Urobilinogen (test code = UA 0.2 0.1-1.0 Urobilinogen) [facility] AND [id number] 15:08:00 Test Item Value Reference Range Interpretation Comments UA Blood (test code = Negative (02/17/15 10:08 UA Blood) AM) [facility] AND [id number] 15:08:00 Test Item Value Reference Range Interpretation Comments UA Nitrite (test code Negative (02/17/15 10:08 = UA Nitrite) AM) [facility] AND [id number] 15:08:00 Test Item Value Reference Range Interpretation Comments UA Leuk Est (test Negative (02/17/15 10:08 code = UA Leuk Est) AM) [facility] AND [id number] 15:08:00 Test Item Value Reference Range Interpretation Comments UA Spec Grav (test *NA*(02/17/15 10:08 AM) code = UA Spec Grav) [facility] AND [id number] 15:08:00 Test Item Value Reference Range Interpretation Comments UA Glucose (test code = UA Glucose) 100 mg/dL [facility] AND [id number] 15:08:00 Test Item Value Reference Range Interpretation Comments UA Protein (test code Negative (02/17/15 10:08 = UA Protein) AM) [facility] AND [id number] 15:08:00 Test Item Value Reference Range Interpretation Comments UA pH (test code = UA pH) 7.0 1 5.0-8.0 [facility] AND [id number] 15:08:00 Test Item Value Reference Range Interpretation Comments UA Color (test code = Yellow *NA*(02/17/15 UA Color) 10:08 AM) [facility] AND [id number] 15:08:00 Test Item Value Reference Range Interpretation Comments UA Turbidity (test code = Clear (02/17/15 10:08 UA Turbidity) AM) [facility] AND [id number] 15:08:00 Test Item Value Reference Range Interpretation Comments UA WBC (test code = UA None Seen (02/17/15 WBC) 10:08 AM) [facility] AND [id number] 15:08:00 Test Item Value Reference Range Interpretation Comments UA RBC (test None Seen See_Comment [Automated mes moises] code = UA RBC) (02/17/15 10:08 The system which AM) generated this result transmitted ref erence range: <=2. The reference range was not used to int erpret this result as normal/abnormal . [facility] [facility] AND [id number] 15:08:00 Test Item Value Reference Range Interpretation Comments UA Bacteria (test code = None Seen (02/17/15 UA Bacteria) 10:08 AM) [facility] AND [id number] 15:08:00 Test Item Value Reference Range Interpretation Comments UA Sq Epi (test code = None Seen (02/17/15 UA Sq Epi) 10:08 AM) [facility] HospitalMyhfupoYACWLBVETK4220-96-66 15:08:00 Test Item Value Reference Range Interpretation Comments Basophils # (test code 0.1 See_Comment [Aut omated message] The = Basophils #) system which generated this result tra nsmitted reference range : <=0.2. The reference r jose alfredo was not used to int erpret this result as normal/abnormal . [facility] HospitalTfkxcfzRCYJFEIZJJ4982-44-71 15:08:00 Test Item Value Reference Range Interpretation Comments Segs-Bands # (test code = Segs-Bands #) 10.7 1.5-8.1 [facility] HospitalPlovabgRYZYAMBKNR8096-65-35 15:08:00 Test Item Value Reference Range Interpretation Comments Lymphocytes # (test code = Lymphocytes 1.2 1.0-5.5 #) [facility] HospitalFkcitwlZJDIQFTLGF6709-24-98 15:08:00 Test Item Value Reference Range Interpretation Comments Monocytes # (test code 1.5 See_Comment [Aut omated message] The = Monocytes #) system which generated this result tra nsmitted reference range : <=0.8. The reference r jose alfredo was not used to int erpret this result as normal/abnormal . [facility] HospitalMokebrnNAAXTEUOAF1053-51-41 15:08:00 Test Item Value Reference Range Interpretation Comments Segs (test code = Segs) 79.6 45.0-75.0 [facility] HospitalBvcadfwQAWOIGBWHP3817-82-02 15:08:00 Test Item Value Reference Range Interpretation Comments Lymphocytes (test code = Lymphocytes) 8.8 20.0-40.0 [facility] HospitalFxkibdxXSIHHDIQDC4319-72-02 15:08:00 Test Item Value Reference Range Interpretation Comments Monocytes (test code = Monocytes) 10.8 2.0-12.0 [facility] HospitalZznazzkPIPFICALEW6356-92-09 15:08:00 Test Item Value Reference Range Interpretation Comments Basophils (test code = 0.5 See_Comment [Aut omated message] The Basophils) system which ge nerated this result tra nsmitted reference range : <=1.0. The reference r jose alfredo was not used to int erpret this result as normal/abnormal . [facility] HospitalZysncenDNYMEZTDRF6347-10-85 15:08:00 Test Item Value Reference Range Interpretation Comments Eosinophils (test code = 0.3 See_Comment [A utomated message] The Eosinophils) system which ge nerated this result tra nsmitted reference range : <=4.0. The reference r jose alfredo was not used to int erpret this result as normal/abnormal . [facility] HospitalSfoxgjaLFZIGMMVOO8674-66-15 15:08:00 Test Item Value Reference Range Interpretation Comments PT (test code = PT) 13.3 s 12.0-14.7 [facility] HospitalQxfnnffQLULNKRSQW0716-64-17 15:08:00 Test Item Value Reference Range Interpretation Comments PTT (test code = PTT) 26.3 s 22.9-35.8 [facility] HospitalDpodfoeKPACARJDBP9192-61-33 15:08:00 Test Item Value Reference Range Interpretation Comments INR (test code = INR) 1.01 0.85-1.17 [facility]bvojaITMMNLQFWA0611-60-[facility] 15:08:00 Test Item Value Reference Range Interpretation Comments MCHC (test code = MCHC) 33.5 32.0-36.0 [facility]GwbqqjiETVHUNTOPQ3995-75-69 15:08:00 Test Item Value Reference Range Interpretation Comments RDW (test code = RDW) 13.0 11.5-14.5 [facility] HospitalWnbrfchTUJCXUQTDI7316-09-50 15:08:00 Test Item Value Reference Range Interpretation Comments Hct (test code = Hct) 39.1 42.0-54.0 [facility] HospitalWhfphwuICXCDBJEXV8700-55-93 15:08:00 Test Item Value Reference Range Interpretation Comments WBC (test code = WBC) 13.5 3.7-10.4 [facility] HospitalUatbpymPQNNPAPRFV6898-84-74 15:08:00 Test Item Value Reference Range Interpretation Comments MCV (test code = MCV) 90.1 80.0-94.0 [facility] HospitalXywwnjgTLTIOSOSZS8573-27-00 15:08:00 Test Item Value Reference Range Interpretation Comments MCH (test code = MCH) 30.2 pg 27.0-31.0 [facility] HospitalNyneotuYDKBMTGMGU5457-03-75 15:08:00 Test Item Value Reference Range Interpretation Comments MPV (test code = MPV) 9.5 7.4-10.4 [facility] HospitalClveyfwOTWYKLOAFQ1219-56-37 15:08:00 Test Item Value Reference Range Interpretation Comments RBC (test code = RBC) 4.34 4.70-6.10 [facility] HospitalWrlhxomKLWTHFXHXP6837-27-02 15:08:00 Test Item Value Reference Range Interpretation Comments Hgb (test code = Hgb) 13.1 14.0-18.0 [facility]dtvfhtPVKUUIPBQW0110-28-07 15:08:00 Test Item Value Reference Range Interpretation Comments Etoh (%) (test code = Etoh (%)) no gt [facility]UigujmsVOUOUJHVHI8658-98-13 15:08:00 Test Item Value Reference Range Interpretation Comments Ethanol Lvl (test code = Ethanol Lvl) no gt [facility] AND [id number] 15:08:00 Test Item Value Reference Range Interpretation Comments UA Ketones (test code Negative *NA*(02/17/15 = UA Ketones) 10:08 AM) [facility] AND [id number] 15:08:00 Test Item Value Reference Range Interpretation Comments UA Bili (test code = Negative *NA*(02/17/15 UA Bili) 10:08 AM) [facility] AND [id number] 15:08:00 Test Item Value Reference Range Interpretation Comments UA Urobilinogen (test code = UA 0.2 0.1-1.0 Urobilinogen) [facility] AND [id number] 15:08:00 Test Item Value Reference Range Interpretation Comments UA Blood (test code = Negative (02/17/15 10:08 UA Blood) AM) [facility] AND [id number] 15:08:00 Test Item Value Reference Range Interpretation Comments UA Nitrite (test code Negative (02/17/15 10:08 = UA Nitrite) AM) [facility] AND [id number] 15:08:00 Test Item Value Reference Range Interpretation Comments UA Leuk Est (test Negative (02/17/15 10:08 code = UA Leuk Est) AM) [facility] AND [id number] 15:08:00 Test Item Value Reference Range Interpretation Comments UA Spec Grav (test *NA*(02/17/15 10:08 AM) code = UA Spec Grav) [facility] AND [id number] 15:08:00 Test Item Value Reference Range Interpretation Comments UA Glucose (test code = UA Glucose) 100 mg/dL [facility] AND [id number] 15:08:00 Test Item Value Reference Range Interpretation Comments UA Protein (test code Negative (02/17/15 10:08 = UA Protein) AM) [facility] AND [id number] 15:08:00 Test Item Value Reference Range Interpretation Comments UA pH (test code = UA pH) 7.0 1 5.0-8.0 [facility] AND [id number] 15:08:00 Test Item Value Reference Range Interpretation Comments UA Color (test code = Yellow *NA*(02/17/15 UA Color) 10:08 AM) [facility] AND [id number] 15:08:00 Test Item Value Reference Range Interpretation Comments UA Turbidity (test code = Clear (02/17/15 10:08 UA Turbidity) AM) [facility] AND [id number] 15:08:00 Test Item Value Reference Range Interpretation Comments UA WBC (test code = UA None Seen (02/17/15 WBC) 10:08 AM) [facility] AND [id number] 15:08:00 Test Item Value Reference Range Interpretation Comments UA RBC (test None Seen See_Comment [Automated mes moises] code = UA RBC) (02/17/15 10:08 The system which AM) generated this result transmitted ref erence range: <=2. The reference range was not used to int erpret this result as normal/abnormal . [facility] AND [id number] 15:08:00 Test Item Value Reference Range Interpretation Comments UA Bacteria (test code = None Seen (02/17/15 UA Bacteria) 10:08 AM) [facility] AND [id number] 15:08:00 Test Item Value Reference Range Interpretation Comments UA Sq Epi (test code = None Seen (02/17/15 UA Sq Epi) 10:08 AM) [facility] HospitalJjeiskhGEKYHJBLOT4016-34-31 15:08:00 Test Item Value Reference Range Interpretation Comments Basophils # (test code 0.1 See_Comment [Aut omated message] The = Basophils #) system which generated this result tra nsmitted reference range : <=0.2. The reference r jose alfredo was not used to int erpret this result as normal/abnormal . [facility] HospitalAyaturxSMJSCYGPWY1733-27-08 15:08:00 Test Item Value Reference Range Interpretation Comments Segs-Bands # (test code = Segs-Bands #) 10.7 1.5-8.1 [facility] HospitalCedlgfqDZXWNXVJHV1353-65-44 15:08:00 Test Item Value Reference Range Interpretation Comments Lymphocytes # (test code = Lymphocytes 1.2 1.0-5.5 #) [facility] HospitalTqnwzrxTPTBJBUXSO0080-51-71 15:08:00 Test Item Value Reference Range Interpretation Comments Monocytes # (test code 1.5 See_Comment [Aut omated message] The = Monocytes #) system which generated this result tra nsmitted reference range : <=0.8. The reference r jose alfredo was not used to int erpret this result as normal/abnormal . [facility] HospitalQacjdasRTGXXCUNGO3695-11-91 15:08:00 Test Item Value Reference Range Interpretation Comments Segs (test code = Segs) 79.6 45.0-75.0 [facility] HospitalCvqcvaeXEOXTKNWGS5490-80-24 15:08:00 Test Item Value Reference Range Interpretation Comments Lymphocytes (test code = Lymphocytes) 8.8 20.0-40.0 [facility] HospitalVbrqvxkUVZWYLCZUW5772-96-68 15:08:00 Test Item Value Reference Range Interpretation Comments Monocytes (test code = Monocytes) 10.8 2.0-12.0 [facility] HospitalWsanpmqPAFBCYBXPB2495-83-36 15:08:00 Test Item Value Reference Range Interpretation Comments Basophils (test code = 0.5 See_Comment [Aut omated message] The Basophils) system which ge nerated this result tra nsmitted reference range : <=1.0. The reference r jose alfredo was not used to int erpret this result as normal/abnormal . [facility] HospitalVrpqnvoNZJEVMPFDG9943-13-72 15:08:00 Test Item Value Reference Range Interpretation Comments Eosinophils (test code = 0.3 See_Comment [A utomated message] The Eosinophils) system which ge nerated this result tra nsmitted reference range : <=4.0. The reference r jose alfredo was not used to int erpret this result as normal/abnormal . [facility] HospitalKrtfnpyEGKJLMVPBC7427-79-42 15:08:00 Test Item Value Reference Range Interpretation Comments PT (test code = PT) 13.3 s 12.0-14.7 [facility] HospitalFlsqwhrQHWZQAIZKF7826-83-42 15:08:00 Test Item Value Reference Range Interpretation Comments PTT (test code = PTT) 26.3 s 22.9-35.8 [facility] HospitalWusworrUYKIMLLKKA7246-18-33 15:08:00 Test Item Value Reference Range Interpretation Comments INR (test code = INR) 1.01 0.85-1.17 [facility] HospitalHnwpsizSFHRGODTPX7514-18-77 15:08:00 Test Item Value Reference Range Interpretation Comments MCHC (test code = MCHC) 33.5 32.0-36.0 [facility] HospitalWubntgsYRKAPPKVVT3125-04-49 15:08:00 Test Item Value Reference Range Interpretation Comments RDW (test code = RDW) 13.0 11.5-14.5 [facility] HospitalKepsqtlXTVCGGGSOI4196-15-51 15:08:00 Test Item Value Reference Range Interpretation Comments Hct (test code = Hct) 39.1 42.0-54.0 [facility]BxzdtodDFJVDNHSIU2665-12-88 15:08:00 Test Item Value Reference Range Interpretation Comments WBC (test code = WBC) 13.5 3.7-10.4 [facility]YdoazwiIAJKMOQUBC0727-16-28 15:08:00 Test Item Value Reference Range Interpretation Comments MCV (test code = MCV) 90.1 80.0-94.0 [facility]CxajivpFOGYWKPVHN1460-81-53 15:08:00 Test Item Value Reference Range Interpretation Comments MCH (test code = MCH) 30.2 pg 27.0-31.0 [facility]HwiwpnsDRDTGCYJLV6188-60-80 15:08:00 Test Item Value Reference Range Interpretation Comments MPV (test code = MPV) 9.5 7.4-10.4 [facility] HospitalYxxdhocRFUPICUSNX4574-47-04 15:08:00 Test Item Value Reference Range Interpretation Comments RBC (test code = RBC) 4.34 4.70-6.10 [facility]oundMkwjyziOHEZKCOBRP6743-93-53 15:08:00 Test Item Value Reference Range Interpretation Comments Hgb (test code = Hgb) 13.1 14.0-18.0 [facility]roeNbqfcjjTLWIIERRDJ8628-31-48 15:08:00 Test Item Value Reference Range Interpretation Comments Etoh (%) (test code = Etoh (%)) no gt [facility]wbktEYEIAEYBND1701-51-55 15:08:00 Test Item Value Reference Range Interpretation Comments Ethanol Lvl (test code = Ethanol Lvl) [facility] [id number] 15:08:00 Test Item Value Reference Range Interpretation Comments UA Ketones (test code Negative *NA*(02/17/15 = UA Ketones) 10:08 AM) [facility] [id number] 15:08:00 Test Item Value Reference Range Interpretation Comments UA Bili (test code = Negative *NA*(02/17/15 UA Bili) 10:08 AM) [facility] [id number] 15:08:00 Test Item Value Reference Range Interpretation Comments UA Urobilinogen (test code = UA 0.2 0.1-1.0 Urobilinogen) [facility] [id number] 15:08:00 Test Item Value Reference Range Interpretation Comments UA Blood (test code = Negative (02/17/15 10:08 UA Blood) AM) [facility] AND [id number] 15:08:00 Test Item Value Reference Range Interpretation Comments UA Nitrite (test code Negative (02/17/15 10:08 = UA Nitrite) AM) [facility] AND [id number] 15:08:00 Test Item Value Reference Range Interpretation Comments UA Leuk Est (test Negative (02/17/15 10:08 code = UA Leuk Est) AM) [facility] AND [id number] 15:08:00 Test Item Value Reference Range Interpretation Comments UA Spec Grav (test *NA*(02/17/15 10:08 AM) code = UA Spec Grav) [facility] AND [id number] 15:08:00 Test Item Value Reference Range Interpretation Comments UA Glucose (test code = UA Glucose) 100 mg/dL [facility] AND [id number] 15:08:00 Test Item Value Reference Range Interpretation Comments UA Protein (test code Negative (02/17/15 10:08 = UA Protein) AM) [facility] AND [id number] 15:08:00 Test Item Value Reference Range Interpretation Comments UA pH (test code = UA pH) 7.0 1 5.0-8.0 [facility] AND [id number] 15:08:00 Test Item Value Reference Range Interpretation Comments UA Color (test code = Yellow *NA*(02/17/15 UA Color) 10:08 AM) [facility] AND [id number] 15:08:00 Test Item Value Reference Range Interpretation Comments UA Turbidity (test code = Clear (02/17/15 10:08 UA Turbidity) AM) [facility] AND [id number] 15:08:00 Test Item Value Reference Range Interpretation Comments UA WBC (test code = UA None Seen (02/17/15 WBC) 10:08 AM) [facility] AND [id number] 15:08:00 Test Item Value Reference Range Interpretation Comments UA RBC (test None Seen See_Comment [Automated mes moises] code = UA RBC) (02/17/15 10:08 The system which AM) generated this result transmitted ref erence range: <=2. The reference range was not used to int erpret this result as normal/abnormal . [facility] AND [id number] 15:08:00 Test Item Value Reference Range Interpretation Comments UA Bacteria (test code = None Seen (02/17/15 UA Bacteria) 10:08 AM) [facility] [id number] 15:08:00 Test Item Value Reference Range Interpretation Comments UA Sq Epi (test code = None Seen (02/17/15 UA Sq Epi) 10:08 AM) [facility] [id number] 15:55:00 Test Item Value Reference Range Interpretation Comments eGFR (test code = eGFR) 68 [facility]2014-10-10 15:55:00 Test Item Value Reference Range Interpretation Comments Globulin (test code = Globulin) 3.3 2.0-4.0 [facility]2014-10-10 15:55:00 Test Item Value Reference Range Interpretation Comments A/G Ratio (test code = A/G Ratio) 1.0 0.7-1.6 [facility]2014-10-10 15:55:00 Test Item Value Reference Range Interpretation Comments Alk Phos (test code = Alk Phos) 43 39-136 [facility]2014-10-10 15:55:00 Test Item Value Reference Range Interpretation Comments Bili Total (test code = Bili Total) 0.3 0.2-1.3 [facility]2014-10-10 15:55:00 Test Item Value Reference Range Interpretation Comments B/C Ratio (test code = B/C Ratio) 17 6-25 [facility]2014-10-10 15:55:00 Test Item Value Reference Range Interpretation Comments AGAP (test code = AGAP) 10.8 10.0-20.0 [facility]2014-10-10 15:55:00 Test Item Value Reference Range Interpretation Comments Calcium Lvl (test code = Calcium Lvl) 9.3 8.5-10.5 [facility]2014-10-10 15:55:00 Test Item Value Reference Range Interpretation Comments Total Protein (test code = Total 6.7 6.4-8.4 Protein) [facility]2014-10-10 15:55:00 Test Item Value Reference Range Interpretation Comments Albumin Lvl (test code = Albumin Lvl) 3.4 3.5-5.0 [facility]2014-10-10 15:55:00 Test Item Value Reference Range Interpretation Comments ALT (test code = ALT) 22 See_Comment [Auto mated message] The system which ge nerated this result transmit stuart reference range : <=65. The reference range was not used to interpr et this result as cherry l/abnormal. [facility]2014-10-10 15:55:00 Test Item Value Reference Range Interpretation Comments AST (test code = AST) 15 See_Comment [Auto mated message] The system which ge nerated this result transmit stuart reference range : <=37. The reference range was not used to interpr et this result as cherry l/abnormal. [facility]2014-10-10 15:55:00 Test Item Value Reference Range Interpretation Comments CO2 (test code = CO2) 36 24-32 [facility]2014-10-10 15:55:00 Test Item Value Reference Range Interpretation Comments Glucose Lvl (test code = Glucose Lvl) 301 70-99 [facility]2014-10-10 15:55:00 Test Item Value Reference Range Interpretation Comments BUN (test code = BUN) 19 7-22 [facility]2014-10-10 15:55:00 Test Item Value Reference Range Interpretation Comments Sodium Lvl (test code = Sodium Lvl) 137 135-145 [facility]2014-10-10 15:55:00 Test Item Value Reference Range Interpretation Comments Creatinine Lvl (test code = Creatinine 1.1 0.5-1.4 Lvl) [facility]2014-10-10 15:55:00 Test Item Value Reference Range Interpretation Comments Potassium Lvl (test code = Potassium 4.8 3.5-5.1 Lvl) [facility]2014-10-10 15:55:00 Test Item Value Reference Range Interpretation Comments Chloride Lvl (test code = Chloride Lvl) 95 95-109 [facility] HospitalQsfmribQMOOLJOEVT3677-14-58 15:55:00 Test Item Value Reference Range Interpretation Comments MCH (test code = MCH) 31.6 pg 27.0-31.0 [facility] HospitalLuzbqfnAQAPHTKJVC5781-28-05 15:55:00 Test Item Value Reference Range Interpretation Comments MCHC (test code = MCHC) 34.5 32.0-36.0 [facility] HospitalRdjuobuUVTEMNGYBI1136-83-49 15:55:00 Test Item Value Reference Range Interpretation Comments MCV (test code = MCV) 91.6 80.0-94.0 [facility] HospitalMghayybUALRYNIQXS8304-98-71 15:55:00 Test Item Value Reference Range Interpretation Comments Hct (test code = Hct) 41.8 42.0-54.0 [facility] HospitalInnjfxqCUCNYFYTGB2834-83-60 15:55:00 Test Item Value Reference Range Interpretation Comments Platelet (test code = Platelet) 187 133-450 [facility] HospitalYzllexhAIJNMSULXS4801-48-19 15:55:00 Test Item Value Reference Range Interpretation Comments MPV (test code = MPV) 10.2 7.4-10.4 [facility] HospitalDmrifxnOTDZSDBINQ8640-95-83 15:55:00 Test Item Value Reference Range Interpretation Comments RDW (test code = RDW) 14.1 11.5-14.5 [facility] HospitalZlbdzxnEHEOOAUWDG3009-77-84 15:55:00 Test Item Value Reference Range Interpretation Comments RBC (test code = RBC) 4.56 4.70-6.10 [facility] HospitalSvxeoayJVQBHJOAOB9564-87-93 15:55:00 Test Item Value Reference Range Interpretation Comments Hgb (test code = Hgb) 14.4 14.0-18.0 [facility] HospitalXsumhhzNHZDYKGUQR4020-54-04 15:55:00 Test Item Value Reference Range Interpretation Comments WBC (test code = WBC) 14.8 3.7-10.4 [facility]2014-10-10 15:55:00 Test Item Value Reference Range Interpretation Comments eGFR (test code = eGFR) 68 [facility]2014-10-10 15:55:00 Test Item Value Reference Range Interpretation Comments Globulin (test code = Globulin) 3.3 2.0-4.0 [facility]2014-10-10 15:55:00 Test Item Value Reference Range Interpretation Comments A/G Ratio (test code = A/G Ratio) 1.0 0.7-1.6 [facility]2014-10-10 15:55:00 Test Item Value Reference Range Interpretation Comments Alk Phos (test code = Alk Phos) 43 39-136 [facility]2014-10-10 15:55:00 Test Item Value Reference Range Interpretation Comments Bili Total (test code = Bili Total) 0.3 0.2-1.3 [facility]2014-10-10 15:55:00 Test Item Value Reference Range Interpretation Comments B/C Ratio (test code = B/C Ratio) 17 6-25 [facility]2014-10-10 15:55:00 Test Item Value Reference Range Interpretation Comments AGAP (test code = AGAP) 10.8 10.0-20.0 [facility]2014-10-10 15:55:00 Test Item Value Reference Range Interpretation Comments Calcium Lvl (test code = Calcium Lvl) 9.3 8.5-10.5 [facility]2014-10-10 15:55:00 Test Item Value Reference Range Interpretation Comments Total Protein (test code = Total 6.7 6.4-8.4 Protein) [facility]2014-10-10 15:55:00 Test Item Value Reference Range Interpretation Comments Albumin Lvl (test code = Albumin Lvl) 3.4 3.5-5.0 [facility]2014-10-10 15:55:00 Test Item Value Reference Range Interpretation Comments ALT (test code = ALT) 22 See_Comment [Auto mated message] The system which ge nerated this result transmit stuart reference range : <=65. The reference range was not used to interpr et this result as cherry l/abnormal. [facility]2014-10-10 15:55:00 Test Item Value Reference Range Interpretation Comments AST (test code = AST) 15 See_Comment [Auto mated message] The system which ge nerated this result transmit stuart reference range : <=37. The reference range was not used to interpr et this result as cherry l/abnormal. [facility]2014-10-10 15:55:00 Test Item Value Reference Range Interpretation Comments CO2 (test code = CO2) 36 24-32 [facility]2014-10-10 15:55:00 Test Item Value Reference Range Interpretation Comments Glucose Lvl (test code = Glucose Lvl) 301 70-99 [place] 309504-10-10 15:55:00 Test Item Value Reference Range Interpretation Comments BUN (test code = BUN) 19 7-22 [facility]2014-10-10 15:55:00 Test Item Value Reference Range Interpretation Comments Sodium Lvl (test code = Sodium Lvl) 137 135-145 [facility]2014-10-10 15:55:00 Test Item Value Reference Range Interpretation Comments Creatinine Lvl (test code = Creatinine 1.1 0.5-1.4 Lvl) [facility]2014-10-10 15:55:00 Test Item Value Reference Range Interpretation Comments Potassium Lvl (test code = Potassium 4.8 3.5-5.1 Lvl) [facility]2014-10-10 15:55:00 Test Item Value Reference Range Interpretation Comments Chloride Lvl (test code = Chloride Lvl) 95 95-109 [facility] HospitalDyixmyvRJURSYIMNV9261-42-48 15:55:00 Test Item Value Reference Range Interpretation Comments MCH (test code = MCH) 31.6 pg 27.0-31.0 [facility] HospitalVjljbfoEDSRTFKOPV8436-30-36 15:55:00 Test Item Value Reference Range Interpretation Comments MCHC (test code = MCHC) 34.5 32.0-36.0 [facility] HospitalZnsiaxaTSKCNOQTPN7242-47-64 15:55:00 Test Item Value Reference Range Interpretation Comments MCV (test code = MCV) 91.6 80.0-94.0 [facility] HospitalLzgxnalDCBAHUAECQ4143-07-69 15:55:00 Test Item Value Reference Range Interpretation Comments Hct (test code = Hct) 41.8 42.0-54.0 [facility] HospitalJjjppiaMURHRPITNW0430-40-56 15:55:00 Test Item Value Reference Range Interpretation Comments Platelet (test code = Platelet) 187 133-450 [facility] HospitalCuoyxtgRNSGLWCBTH0515-96-84 15:55:00 Test Item Value Reference Range Interpretation Comments MPV (test code = MPV) 10.2 7.4-10.4 [facility] HospitalBmdmmknTOPBRYTFJJ7289-76-14 15:55:00 Test Item Value Reference Range Interpretation Comments RDW (test code = RDW) 14.1 11.5-14.5 [facility] HospitalKdenckjDQUJZRQODP6794-56-60 15:55:00 Test Item Value Reference Range Interpretation Comments RBC (test code = RBC) 4.56 4.70-6.10 [facility] HospitalDjffzzqBKWDVOLISE6410-02-86 15:55:00 Test Item Value Reference Range Interpretation Comments Hgb (test code = Hgb) 14.4 14.0-18.0 [facility] HospitalTqwyyxdUHCUJMNERY9383-43-48 15:55:00 Test Item Value Reference Range Interpretation Comments WBC (test code = WBC) 14.8 3.7-10.4 [facility]2014-10-10 15:55:00 Test Item Value Reference Range Interpretation Comments eGFR (test code = eGFR) 68 [facility]2014-10-10 15:55:00 Test Item Value Reference Range Interpretation Comments Globulin (test code = Globulin) 3.3 2.0-4.0 [facility]2014-10-10 15:55:00 Test Item Value Reference Range Interpretation Comments A/G Ratio (test code = A/G Ratio) 1.0 0.7-1.6 [facility]2014-10-10 15:55:00 Test Item Value Reference Range Interpretation Comments Alk Phos (test code = Alk Phos) 43 39-136 [facility]2014-10-10 15:55:00 Test Item Value Reference Range Interpretation Comments Bili Total (test code = Bili Total) 0.3 0.2-1.3 [facility]2014-10-10 15:55:00 Test Item Value Reference Range Interpretation Comments B/C Ratio (test code = B/C Ratio) 17 6-25 [facility]2014-10-10 15:55:00 Test Item Value Reference Range Interpretation Comments AGAP (test code = AGAP) 10.8 10.0-20.0 [facility]2014-10-10 15:55:00 Test Item Value Reference Range Interpretation Comments Calcium Lvl (test code = Calcium Lvl) 9.3 8.5-10.5 [facility]2014-10-10 15:55:00 Test Item Value Reference Range Interpretation Comments Total Protein (test code = Total 6.7 6.4-8.4 Protein) [facility]2014-10-10 15:55:00 Test Item Value Reference Range Interpretation Comments Albumin Lvl (test code = Albumin Lvl) 3.4 3.5-5.0 [facility]2014-10-10 15:55:00 Test Item Value Reference Range Interpretation Comments ALT (test code = ALT) 22 See_Comment [Auto mated message] The system which ge nerated this result transmit stuart reference range : <=65. The reference range was not used to interpr et this result as cherry l/abnormal. [facility]2014-10-10 15:55:00 Test Item Value Reference Range Interpretation Comments AST (test code = AST) 15 See_Comment [Auto mated message] The system which ge nerated this result transmit stuart reference range : <=37. The reference range was not used to interpr et this result as cherry l/abnormal. [facility]2014-10-10 15:55:00 Test Item Value Reference Range Interpretation Comments CO2 (test code = CO2) 36 24-32 [facility]2014-10-10 15:55:00 Test Item Value Reference Range Interpretation Comments Glucose Lvl (test code = Glucose Lvl) 301 70-99 [facility]2014-10-10 15:55:00 Test Item Value Reference Range Interpretation Comments BUN (test code = BUN) 19 7-22 [facility]2014-10-10 15:55:00 Test Item Value Reference Range Interpretation Comments Sodium Lvl (test code = Sodium Lvl) 137 135-145 [facility]2014-10-10 15:55:00 Test Item Value Reference Range Interpretation Comments Creatinine Lvl (test code = Creatinine 1.1 0.5-1.4 Lvl) [facility]2014-10-10 15:55:00 Test Item Value Reference Range Interpretation Comments Potassium Lvl (test code = Potassium 4.8 3.5-5.1 Lvl) [facility]2014-10-10 15:55:00 Test Item Value Reference Range Interpretation Comments Chloride Lvl (test code = Chloride Lvl) 95 95-109 [facility] HospitalPsamkbzULCXCOPIJR9648-18-25 15:55:00 Test Item Value Reference Range Interpretation Comments MCH (test code = MCH) 31.6 pg 27.0-31.0 [facility] HospitalQrczwntELHSAHDGTK8618-12-65 15:55:00 Test Item Value Reference Range Interpretation Comments MCHC (test code = MCHC) 34.5 32.0-36.0 [facility] HospitalQajlmbfMULVYZZFFF9499-53-43 15:55:00 Test Item Value Reference Range Interpretation Comments MCV (test code = MCV) 91.6 80.0-94.0 [facility] HospitalIgzmvrpJAFQELMKFD9831-01-65 15:55:00 Test Item Value Reference Range Interpretation Comments Hct (test code = Hct) 41.8 42.0-54.0 [facility] HospitalGxvhnyqNGLISTKPZS2923-67-89 15:55:00 Test Item Value Reference Range Interpretation Comments Platelet (test code = Platelet) 187 133-450 [facility] HospitalZsuhnylOPETSWHVON6691-76-57 15:55:00 Test Item Value Reference Range Interpretation Comments MPV (test code = MPV) 10.2 7.4-10.4 [facility] HospitalFokejpvFJDEGUPINQ6469-27-94 15:55:00 Test Item Value Reference Range Interpretation Comments RDW (test code = RDW) 14.1 11.5-14.5 [facility] HospitalOmjdwruYPHLMCZKQD9454-80-94 15:55:00 Test Item Value Reference Range Interpretation Comments RBC (test code = RBC) 4.56 4.70-6.10 [facility]ekkrqnQWDBHUWIEG4330-15-50 15:55:00 Test Item Value Reference Range Interpretation Comments Hgb (test code = Hgb) 14.4 14.0-18.0 [facility]HrgonfvYFUWECIXIS4475-20-05 15:55:00 Test Item Value Reference Range Interpretation Comments WBC (test code = WBC) 14.8 3.7-10.4 [facility]oundgamigo [id number] 14:28:00 Test Item Value Reference Range Interpretation Comments Total CK (test code = Total CK) 67 -191 [facility] MoundPeepsOut Inc.ITZUQWV6463-62-40 14:28:00 Test Item Value Reference Range Interpretation Comments Troponin-I (test code no gt See_Comment [Auto mated message] The = Troponin-I) system which g enerated this result transmit stuart reference range : <=0.40. The reference r jose alfredo was not used to interpr et this result as cherry l/abnormal. [facility] MoundPeepsOut Inc.LJSVUSH5928-57-93 14:28:00 Test Item Value Reference Range Interpretation Comments Total CK (test code = Total CK) 67 12-191 [facility] MoundCreative Logic MediaPA[facility] [id number] 14:28:00 Test Item Value Reference Range Interpretation Comments Troponin-I (test code no gt See_Comment [Auto mated message] The = Troponin-I) system which g enerated this result transmit stuart reference range : <=0.40. The reference r jose alfredo was not used to interpr et this result as cherry l/abnormal. [facility] [id number] 14:28:00 Test Item Value Reference Range Interpretation Comments Total CK (test code = Total CK) 67 - [facility] [id number] 14:28:00 Test Item Value Reference Range Interpretation Comments Troponin-I (test code no gt See_Comment [Auto mated message] The = Troponin-I) system which g enerated this result transmit stuart reference range : <=0.40. The reference r jose alfredo was not used to interpr et this result as cherry l/abnormal. [facility] MoundCreative Logic MediaPAINTS[facility] [id number] 09:10:00 Test Item Value Reference Range Interpretation Comments BNP (test code = BNP) 13 [facility] [id number] 09:10:00 Test Item Value Reference Range Interpretation Comments Total CK (test code = Total CK) 65 [facility] [id number] 09:10:00 Test Item Value Reference Range Interpretation Comments Troponin-I (test code no gt See_Comment [Auto mated message] The = Troponin-I) system which g enerated this result transmit stuart reference range : <=0.40. The reference r jose alfredo was not used to interpr et this result as cherry l/abnormal. [facility] [employer] [id number] 09:10:00 Test Item Value Reference Range Interpretation Comments eGFR (test code = eGFR) 76 [facility]roeEntertainment Magpie [id number] 09:10:00 Test Item Value Reference Range Interpretation Comments Creatinine Lvl (test code = Creatinine 1.0 0.5-1.4 Lvl) [facility] [id number] 09:10:00 Test Item Value Reference Range Interpretation Comments PTT (test code = PTT) 29.8 s 22.9-35.8 [facility] ConroeDmcyumtLDWLKVYFXG4064-57-21 09:10:00 Test Item Value Reference Range Interpretation Comments Platelet (test code = Platelet) 174 133-450 [facility] [id number] 09:10:00 Test Item Value Reference Range Interpretation Comments BNP (test code = BNP) 13 [facility] [id number] 09:10:00 Test Item Value Reference Range Interpretation Comments Total CK (test code = Total CK) 65 12-191 [facility] [id number] 09:10:00 Test Item Value Reference Range Interpretation Comments Troponin-I (test code no gt See_Comment [Auto mated message] The = Troponin-I) system which g enerated this result transmit stuart reference range : <=0.40. The reference r jose alfredo was not used to interpr et this result as cherry l/abnormal. [facility]roeEntertainment Magpie [id number] 09:10:00 Test Item Value Reference Range Interpretation Comments eGFR (test code = eGFR) 76 [facility]roeEntertainment [facility] [id number] 09:10:00 Test Item Value Reference Range Interpretation Comments Creatinine Lvl (test code = Creatinine 1.0 0.5-1.4 Lvl) [facility] [id number] 09:10:00 Test Item Value Reference Range Interpretation Comments PTT (test code = PTT) 29.8 s 22.9-35.8 [facility] MoundUbamerrEDIOJHLWYH0827-47-91 09:10:00 Test Item Value Reference Range Interpretation Comments Platelet (test code = Platelet) 174 133-450 [facility] [id number] 09:10:00 Test Item Value Reference Range Interpretation Comments BNP (test code = BNP) 13 [facility]oundCreative Logic MediaPAINTS[facility] [id number] 09:10:00 Test Item Value Reference Range Interpretation Comments Total CK (test code = Total CK) 65 12-191 [facility] CenterLegendary PicturesNNPCQJZ0530-34-87 09:10:00 Test Item Value Reference Range Interpretation Comments Troponin-I (test code no gt See_Comment [Auto mated message] The = Troponin-I) system which g enerated this result transmit stuart reference range : <=0.40. The reference r jose alfredo was not used to interpr et this result as cherry l/abnormal. [facility] [employer] [id number] 09:10:00 Test Item Value Reference Range Interpretation Comments eGFR (test code = eGFR) 76 [facility] F[facility] MoundCHEM [id number] 09:10:00 Test Item Value Reference Range Interpretation Comments Creatinine Lvl (test code = Creatinine 1.0 0.5-1.4 Lvl) [facility] [id number] 09:10:00 Test Item Value Reference Range Interpretation Comments PTT (test code = PTT) 29.8 s 22.9-35.8 [facility] HospitalBhaukqqBNFLZTMMMI7729-44-32 09:10:00 Test Item Value Reference Range Interpretation Comments Platelet (test code = Platelet) 174 133-450 [facility] AND [id number] 02:15:29 Test Item Value Reference Range Interpretation Comments UA Color (test code = Yellow *NA*(06/08/14 UA Color) 9:15 PM) [facility] AND [id number] 02:15:29 Test Item Value Reference Range Interpretation Comments UA Leuk Est (test Negative (06/08/14 9:15 code = UA Leuk Est) PM) [facility] AND [id number] 02:15:29 Test Item Value Reference Range Interpretation Comments UA Nitrite (test code Negative (06/08/14 9:15 = UA Nitrite) PM) [facility] AND [id number] 02:15:29 Test Item Value Reference Range Interpretation Comments UA Urobilinogen (test code = UA 0.2 0.1-1.0 Urobilinogen) [facility] AND [id number] 02:15:29 Test Item Value Reference Range Interpretation Comments UA Glucose (test code Negative (06/08/14 9:15 = UA Glucose) PM) [facility] AND [id number] 02:15:29 Test Item Value Reference Range Interpretation Comments UA Protein (test code = Trace *ABN*(06/08/14 UA Protein) 9:15 PM) [facility] AND [id number] 02:15:29 Test Item Value Reference Range Interpretation Comments UA pH (test code = UA pH) 6.0 1 5.0-8.0 [facility] AND [id number] 02:15:29 Test Item Value Reference Range Interpretation Comments UA Spec Grav (test >=1.030 *ABN*(10/8/14 code = UA Spec Grav) 9:15 PM) [facility] AND [id number] 02:15:29 Test Item Value Reference Range Interpretation Comments UA Ketones (test code Negative *NA*(06/08/14 = UA Ketones) 9:15 PM) [facility] [id number] 02:15:29 Test Item Value Reference Range Interpretation Comments UA Bili (test code = Negative *NA*(06/08/14 UA Bili) 9:15 PM) [facility] [id number] 02:15:29 Test Item Value Reference Range Interpretation Comments UA Turbidity (test code = Clear (06/08/14 9:15 UA Turbidity) PM) [facility] [id number] 02:15:29 Test Item Value Reference Range Interpretation Comments UA Blood (test code = Negative (06/08/14 9:15 UA Blood) PM) [facility] AND [id number] 02:15:29 Test Item Value Reference Range Interpretation Comments UA WBC (test code = UA WBC) 0-2 /HPF [facility] AND [id number] 02:15:29 Test Item Value Reference Range Interpretation Comments UA Mucus (test code = UA Mucus) Rare /LPF [facility] AND [id number] 02:15:29 Test Item Value Reference Range Interpretation Comments UA Sq Epi (test code = UA Sq Epi) Rare /LPF [facility] AND [id number] 02:15:29 Test Item Value Reference Range Interpretation Comments UA RBC (test code = 0-2 /HPF See_Comment [Automa stuart message] The UA RBC) system which ge nerated this result tra nsmitted reference range : <=2. The reference range was not used to interpr et this result as cherry l/abnormal. [facility] AND [id number] 02:15:29 Test Item Value Reference Range Interpretation Comments UA Fine Gran (test code = UA Fine 0-2 /LPF Gran) [facility] AND [id number] 02:15:29 Test Item Value Reference Range Interpretation Comments UA Color (test code = Yellow *NA*(06/08/14 UA Color) 9:15 PM) [facility] AND [id number] 02:15:29 Test Item Value Reference Range Interpretation Comments UA Leuk Est (test Negative (06/08/14 9:15 code = UA Leuk Est) PM) [facility] AND [id number] 02:15:29 Test Item Value Reference Range Interpretation Comments UA Nitrite (test code Negative (06/08/14 9:15 = UA Nitrite) PM) [facility] AND [id number] 02:15:29 Test Item Value Reference Range Interpretation Comments UA Urobilinogen (test code = UA 0.2 0.1-1.0 Urobilinogen) [facility] AND [id number] 02:15:29 Test Item Value Reference Range Interpretation Comments UA Glucose (test code Negative (06/08/14 9:15 = UA Glucose) PM) [facility] AND [id number] 02:15:29 Test Item Value Reference Range Interpretation Comments UA Protein (test code = Trace *ABN*(06/08/14 UA Protein) 9:15 PM) [facility] AND [id number] 02:15:29 Test Item Value Reference Range Interpretation Comments UA pH (test code = UA pH) 6.0 1 5.0-8.0 [facility] AND [id number] 02:15:29 Test Item Value Reference Range Interpretation Comments UA Spec Grav (test >=1.030 *ABN*(06/08/14 code = UA Spec Grav) 9:15 PM) [facility] AND [id number] 02:15:29 Test Item Value Reference Range Interpretation Comments UA Ketones (test code Negative *NA*(06/08/14 = UA Ketones) 9:15 PM) [facility] AND [id number] 02:15:29 Test Item Value Reference Range Interpretation Comments UA Bili (test code = Negative *NA*(06/08/14 UA Bili) 9:15 PM) [facility] AND [id number] 02:15:29 Test Item Value Reference Range Interpretation Comments UA Turbidity (test code = Clear (06/08/14 9:15 UA Turbidity) PM) [facility] AND [id number] 02:15:29 Test Item Value Reference Range Interpretation Comments UA Blood (test code = Negative (06/08/14 9:15 UA Blood) PM) [facility] AND [id number] 02:15:29 Test Item Value Reference Range Interpretation Comments UA WBC (test code = UA WBC) 0-2 /HPF [facility] AND [id number] 02:15:29 Test Item Value Reference Range Interpretation Comments UA Mucus (test code = UA Mucus) Rare /LPF [facility] AND [id number] 02:15:29 Test Item Value Reference Range Interpretation Comments UA Sq Epi (test code = UA Sq Epi) Rare /LPF [facility] AND [id number] 02:15:29 Test Item Value Reference Range Interpretation Comments UA RBC (test code = 0-2 /HPF See_Comment [Automa stuart message] The UA RBC) system which ge nerated this result tra nsmitted reference range : <=2. The reference range was not used to interpr et this result as cherry l/abnormal. [facility] AND [id number] 02:15:29 Test Item Value Reference Range Interpretation Comments UA Fine Gran (test code = UA Fine 0-2 /LPF Gran) [facility] AND [id number] 02:15:29 Test Item Value Reference Range Interpretation Comments UA Color (test code = Yellow *NA*(06/08/14 UA Color) 9:15 PM) [facility] AND [id number] 02:15:29 Test Item Value Reference Range Interpretation Comments UA Leuk Est (test Negative (06/08/14 9:15 code = UA Leuk Est) PM) [facility] AND [id number] 02:15:29 Test Item Value Reference Range Interpretation Comments UA Nitrite (test code Negative (06/08/14 9:15 = UA Nitrite) PM) [facility] AND [id number] 02:15:29 Test Item Value Reference Range Interpretation Comments UA Urobilinogen (test code = UA 0.2 0.1-1.0 Urobilinogen) [facility] AND [id number] 02:15:29 Test Item Value Reference Range Interpretation Comments UA Glucose (test code Negative (06/08/14 9:15 = UA Glucose) PM) [facility] AND [id number] 02:15:29 Test Item Value Reference Range Interpretation Comments UA Protein (test code = Trace *ABN*(06/08/14 UA Protein) 9:15 PM) [facility] [id number] 02:15:29 Test Item Value Reference Range Interpretation Comments UA pH (test code = UA pH) 6.0 1 5.0-8.0 [facility] [id number] 02:15:29 Test Item Value Reference Range Interpretation Comments UA Spec Grav (test >=1.030 *ABN*(06/08/14 code = UA Spec Grav) 9:15 PM) [facility] AND [id number] 02:15:29 Test Item Value Reference Range Interpretation Comments UA Ketones (test code Negative *NA*(06/08/14 = UA Ketones) 9:15 PM) [facility] AND [id number] 02:15:29 Test Item Value Reference Range Interpretation Comments UA Bili (test code = Negative *NA*(06/08/14 UA Bili) 9:15 PM) [facility] AND [id number] 02:15:29 Test Item Value Reference Range Interpretation Comments UA Turbidity (test code = Clear (06/08/14 9:15 UA Turbidity) PM) [facility] AND [id number] 02:15:29 Test Item Value Reference Range Interpretation Comments UA Blood (test code = Negative (06/08/14 9:15 UA Blood) PM) [facility] [id number] 02:15:29 Test Item Value Reference Range Interpretation Comments UA WBC (test code = UA WBC) 0-2 /HPF [facility] AND [id number] 02:15:29 Test Item Value Reference Range Interpretation Comments UA Mucus (test code = UA Mucus) Rare /LPF [facility] [id number] 02:15:29 Test Item Value Reference Range Interpretation Comments UA Sq Epi (test code = UA Sq Epi) Rare /LPF [facility] AND [id number] 02:15:29 Test Item Value Reference Range Interpretation Comments UA RBC (test code = 0-2 /HPF See_Comment [Automa stuart message] The UA RBC) system which ge nerated this result tra nsmitted reference range : <=2. The reference range was not used to interpr et this result as cherry l/abnormal. [facility] [id number] 02:15:29 Test Item Value Reference Range Interpretation Comments UA Fine Gran (test code = UA Fine 0-2 /LPF Gran) [facility] [id number] 01:45:14 Test Item Value Reference Range Interpretation Comments CK MB (test code = CK MB) 1.3 0.5-3.6 [facility] [id number] 01:45:14 Test Item Value Reference Range Interpretation Comments Total CK (test code = Total CK) 93 12191 [facility] [id number] 01:45:14 Test Item Value Reference Range Interpretation Comments Troponin-I (test code no gt See_Comment [Auto mated message] The = Troponin-I) system which g enerated this result transmit stuart reference range : <=0.40. The reference r jose alfredo was not used to interpr et this result as cherry l/abnormal. [facility] [id number] 01:45:14 Test Item Value Reference Range Interpretation Comments BNP (test code = BNP) 18 [facility] [id number] 01:45:14 Test Item Value Reference Range Interpretation Comments CK MB Index (test 1.4 See_Comment [Automate d message] The code = CK MB Index) system w [facility] generated this result transmit stuart reference range : <=2.5. The reference range was not used to interpr et this result as cherry l/abnormal. [facility]annCHE[facility] [id number] 01:45:14 Test Item Value Reference Range Interpretation Comments eGFR (test code = eGFR) 68 [facility] [id number] 01:45:14 Test Item Value Reference Range Interpretation Comments CK MB (test code = CK MB) 1.3 0.5-3.6 [facility] [id number] 01:45:14 Test Item Value Reference Range Interpretation Comments Total CK (test code = Total CK) 93 12-191 [facility] HermannCARDIAC [id number] 01:45:14 Test Item Value Reference Range Interpretation Comments Troponin-I (test code no gt See_Comment [Auto mated message] The = Troponin-I) system which g enerated this result transmit stuart reference range : <=0.40. The reference r jose alfredo was not used to interpr et this result as cherry l/abnormal. [id number] 01:45:14 Test Item Value Reference Range Interpretation Comments BNP (test code = BNP) 18 [facility] [employer] NetworkAC [id number] 01:45:14 Test Item Value Reference Range Interpretation Comments CK MB Index (test 1.4 See_Comment [Automate d message] The code = CK MB Index) system w [employer] generated this result transmit stuart reference range : <=2.5. The reference range was not used to interpr et this result as cherry l/abnormal. [employer]2014-10-09 01:45:14 Test Item Value Reference Range Interpretation Comments eGFR (test code = eGFR) 68 [facility] [employer]2014-10-09 01:45:14 Test Item Value Reference Range Interpretation Comments CK MB (test code = CK MB) 1.3 0.5-3.6 [facility] [employer]2014-10-09 01:45:14 Test Item Value Reference Range Interpretation Comments Total CK (test code = Total CK) 93 12-191 [facility] [employer]2014-10-09 01:45:14 Test Item Value Reference Range Interpretation Comments Troponin-I (test code no gt See_Comment [Auto mated message] The = Troponin-I) system which g enerated this result transmit stuart reference range : <=0.40. The reference r jose alfredo was not used to interpr et this result as cherry l/abnormal. [employer]2014-10-09 01:45:14 Test Item Value Reference Range Interpretation Comments BNP (test code = BNP) 18 [facility] [employer]2014-10-09 01:45:14 Test Item Value Reference Range Interpretation Comments CK MB Index (test 1.4 See_Comment [Automate d message] The code = CK MB Index) system w [employer] generated this result transmit stuart reference range : <=2.5. The reference range was not used to interpr et this result as cherry l/abnormal. [employer]2014-10-09 01:45:14 Test Item Value Reference Range Interpretation Comments eGFR (test code = eGFR) 68 [facility]PgnddvjTANGJDNKPU7836-09-83 01:25:19 Test Item Value Reference Range Interpretation Comments INR (test code = INR) 0.90 0.85-1.17 [facility] HospitalVytusfhTGQLTFICHQ8050-60-21 01:25:19 Test Item Value Reference Range Interpretation Comments PTT (test code = PTT) 28.6 s 22.9-35.8 [facility] HospitalMmaomndPSZWGCBHQF9003-67-26 01:25:19 Test Item Value Reference Range Interpretation Comments PT (test code = PT) 12.1 s 12.0-14.7 [facility] HospitalWtwkvbtRGGHZHHXLV0400-59-84 01:25:19 Test Item Value Reference Range Interpretation Comments INR (test code = INR) 0.90 0.85-1.17 [facility] HospitalRlibunhGOIGEBBICM0564-94-10 01:25:19 Test Item Value Reference Range Interpretation Comments PTT (test code = PTT) 28.6 s 22.9-35.8 [facility] HospitalDnxwxciWNTCTIQDCE1380-06-35 01:25:19 Test Item Value Reference Range Interpretation Comments PT (test code = PT) 12.1 s 12.0-14.7 [facility] HospitalHkisyxhTNDZGDOYCB4668-04-70 01:25:19 Test Item Value Reference Range Interpretation Comments INR (test code = INR) 0.90 0.85-1.17 [facility] HospitalJqwkbdaITFAIHIOHD2752-43-86 01:25:19 Test Item Value Reference Range Interpretation Comments PTT (test code = PTT) 28.6 s 22.9-35.8 [facility] HospitalOetswddQCZIWPJVMW0555-33-13 01:25:19 Test Item Value Reference Range Interpretation Comments PT (test code = PT) 12.1 s 12.0-14.7 [facility]2014-10-09 01:25:00 Test Item Value Reference Range Interpretation Comments ALT (test code = ALT) 29 See_Comment [Auto mated message] The system which ge nerated this result transmit stuart reference range : <=65. The reference range was not used to interpr et this result as cherry l/abnormal. [facility]2014-10-09 01:25:00 Test Item Value Reference Range Interpretation Comments A/G Ratio (test code = A/G Ratio) 0.9 0.7-1.6 [facility]2014-10-09 01:25:00 Test Item Value Reference Range Interpretation Comments Alk Phos (test code = Alk Phos) 53 39-136 [facility]2014-10-09 01:25:00 Test Item Value Reference Range Interpretation Comments AST (test code = AST) 24 See_Comment [Auto mated message] The system which ge nerated this result transmit stuart reference range : <=37. The reference range was not used to interpr et this result as cherry l/abnormal. [facility]2014-10-09 01:25:00 Test Item Value Reference Range Interpretation Comments Bili Total (test code = Bili Total) 0.5 0.2-1.3 [facility]2014-10-09 01:25:00 Test Item Value Reference Range Interpretation Comments B/C Ratio (test code = B/C Ratio) 18 6-25 [facility]2014-10-09 01:25:00 Test Item Value Reference Range Interpretation Comments Globulin (test code = Globulin) 4.0 2.0-4.0 [facility]2014-10-09 01:25:00 Test Item Value Reference Range Interpretation Comments Total Protein (test code = Total 7.5 6.4-8.4 Protein) [facility]2014-10-09 01:25:00 Test Item Value Reference Range Interpretation Comments Albumin Lvl (test code = Albumin Lvl) 3.5 3.5-5.0 [facility]2014-10-09 01:25:00 Test Item Value Reference Range Interpretation Comments Potassium Lvl (test code = Potassium 4.5 3.5-5.1 Lvl) [facility]2014-10-09 01:25:00 Test Item Value Reference Range Interpretation Comments CO2 (test code = CO2) 41 24-32 [facility]2014-10-09 01:25:00 Test Item Value Reference Range Interpretation Comments Chloride Lvl (test code = Chloride Lvl) 96 95-109 [facility]2014-10-09 01:25:00 Test Item Value Reference Range Interpretation Comments Calcium Lvl (test code = Calcium Lvl) 9.2 8.5-10.5 [facility]2014-10-09 01:25:00 Test Item Value Reference Range Interpretation Comments AGAP (test code = AGAP) 6.5 10.0-20.0 [facility]2014-10-09 01:25:00 Test Item Value Reference Range Interpretation Comments Sodium Lvl (test code = Sodium Lvl) 139 135-145 [facility]2014-10-09 01:25:00 Test Item Value Reference Range Interpretation Comments Creatinine Lvl (test code = Creatinine 1.1 0.5-1.4 Lvl) [facility]2014-10-09 01:25:00 Test Item Value Reference Range Interpretation Comments BUN (test code = BUN) 20 7-22 [facility]2014-10-09 01:25:00 Test Item Value Reference Range Interpretation Comments Glucose Lvl (test code = Glucose Lvl) 199 70-99 [facility] HospitalNcmhkjjJLWCWQUSXH7877-36-56 01:25:00 Test Item Value Reference Range Interpretation Comments MCV (test code = MCV) 90.8 80.0-94.0 [facility] HospitalTlagajcJGRPGPJHYE5210-60-39 01:25:00 Test Item Value Reference Range Interpretation Comments Hct (test code = Hct) 45.4 42.0-54.0 [facility] HospitalTlnbzwiWDXLMGWRJQ6410-35-15 01:25:00 Test Item Value Reference Range Interpretation Comments MCH (test code = MCH) 31.6 pg 27.0-31.0 [facility] HospitalLcekzdhRELUZGSSHT0207-31-71 01:25:00 Test Item Value Reference Range Interpretation Comments RBC (test code = RBC) 5.00 4.70-6.10 [facility] HospitalUvdnepjADKAZVILDT6407-12-19 01:25:00 Test Item Value Reference Range Interpretation Comments Hgb (test code = Hgb) 15.8 14.0-18.0 [facility] HospitalBuhusujNWDRSLYKVK5241-49-91 01:25:00 Test Item Value Reference Range Interpretation Comments WBC (test code = WBC) 8.5 3.7-10.4 [facility] HospitalPfqdjqzYNZHTUVBLR8777-73-61 01:25:00 Test Item Value Reference Range Interpretation Comments MCHC (test code = MCHC) 34.8 32.0-36.0 [facility] HospitalVqqqeycWVYYJEURKO7975-97-59 01:25:00 Test Item Value Reference Range Interpretation Comments Platelet (test code = Platelet) 186 133-450 [facility] HospitalDoixaeaXTBSVSMZGY9748-97-97 01:25:00 Test Item Value Reference Range Interpretation Comments RDW (test code = RDW) 14.1 11.5-14.5 [facility] HospitalHlwsfdwWKSSLZBQGY0116-56-09 01:25:00 Test Item Value Reference Range Interpretation Comments MPV (test code = MPV) 9.6 7.4-10.4 [facility] HospitalSfppclfQTHZYBNJCV9341-82-15 01:25:00 Test Item Value Reference Range Interpretation Comments Eosinophils # (test code 0.3 See_Comment [A utomated message] The = Eosinophils #) system whic h generated this result tra nsmitted reference range : <=0.5. The reference r jose alfredo was not used to int erpret this result as normal/abnormal . [facility] HospitalQivdlxaRANTTQATMP8358-13-51 01:25:00 Test Item Value Reference Range Interpretation Comments Basophils # (test code 0.1 See_Comment [Aut omated message] The = Basophils #) system which generated this result tra nsmitted reference range : <=0.2. The reference r jose alfredo was not used to int erpret this result as normal/abnormal . [facility] HospitalQcdmwhvWVZHBRQXFD3589-40-14 01:25:00 Test Item Value Reference Range Interpretation Comments Monocytes # (test code 1.1 See_Comment [Aut omated message] The = Monocytes #) system which generated this result tra nsmitted reference range : <=0.8. The reference r jose alfredo was not used to int erpret this result as normal/abnormal . [facility] HospitalGvtmkynXVUQZCVBNR0628-12-26 01:25:00 Test Item Value Reference Range Interpretation Comments Segs (test code = Segs) 62.9 45.0-75.0 [facility] HospitalXadgeacVNIEWYWFNB4944-51-52 01:25:00 Test Item Value Reference Range Interpretation Comments Lymphocytes # (test code = Lymphocytes 1.7 1.0-5.5 #) [facility] HospitalLaovixzPYITHSNCJP1378-42-93 01:25:00 Test Item Value Reference Range Interpretation Comments Eosinophils (test code = 3.0 See_Comment [A utomated message] The Eosinophils) system which ge nerated this result tra nsmitted reference range : <=4.0. The reference r jose alfredo was not used to int erpret this result as normal/abnormal . [facility] HospitalSaldcawUHBVIKLIVX5092-35-05 01:25:00 Test Item Value Reference Range Interpretation Comments Basophils (test code = 1.3 See_Comment [Aut omated message] The Basophils) system which ge nerated this result tra nsmitted reference range : <=1.0. The reference r jose alfredo was not used to int erpret this result as normal/abnormal . [facility] HospitalZnjqrzjOAKHLLKKXB3640-42-47 01:25:00 Test Item Value Reference Range Interpretation Comments Monocytes (test code = Monocytes) 13.0 2.0-12.0 [facility] HospitalOvlheltXZPDIQVNWJ3702-36-73 01:25:00 Test Item Value Reference Range Interpretation Comments Lymphocytes (test code = Lymphocytes) 19.8 20.0-40.0 [facility] HospitalNvlactqPCEKMHRFFD5127-96-53 01:25:00 Test Item Value Reference Range Interpretation Comments Segs-Bands # (test code = Segs-Bands #) 5.3 1.5-8.1 [facility]2014-10-09 01:25:00 Test Item Value Reference Range Interpretation Comments ALT (test code = ALT) 29 See_Comment [Auto mated message] The system which ge nerated this result transmit stuart reference range : <=65. The reference range was not used to interpr et this result as cherry l/abnormal. [facility]2014-10-09 01:25:00 Test Item Value Reference Range Interpretation Comments A/G Ratio (test code = A/G Ratio) 0.9 0.7-1.6 [facility]2014-10-09 01:25:00 Test Item Value Reference Range Interpretation Comments Alk Phos (test code = Alk Phos) 53 39-136 [facility]2014-10-09 01:25:00 Test Item Value Reference Range Interpretation Comments AST (test code = AST) 24 See_Comment [Auto mated message] The system which ge nerated this result transmit stuart reference range : <=37. The reference range was not used to interpr et this result as cherry l/abnormal. [facility]2014-10-09 01:25:00 Test Item Value Reference Range Interpretation Comments Bili Total (test code = Bili Total) 0.5 0.2-1.3 [facility]2014-10-09 01:25:00 Test Item Value Reference Range Interpretation Comments B/C Ratio (test code = B/C Ratio) 18 6-25 [facility]2014-10-09 01:25:00 Test Item Value Reference Range Interpretation Comments Globulin (test code = Globulin) 4.0 2.0-4.0 [facility]2014-10-09 01:25:00 Test Item Value Reference Range Interpretation Comments Total Protein (test code = Total 7.5 6.4-8.4 Protein) [facility]2014-10-09 01:25:00 Test Item Value Reference Range Interpretation Comments Albumin Lvl (test code = Albumin Lvl) 3.5 3.5-5.0 [facility]2014-10-09 01:25:00 Test Item Value Reference Range Interpretation Comments Potassium Lvl (test code = Potassium 4.5 3.5-5.1 Lvl) [facility]2014-10-09 01:25:00 Test Item Value Reference Range Interpretation Comments CO2 (test code = CO2) 41 24-32 [facility]2014-10-09 01:25:00 Test Item Value Reference Range Interpretation Comments Chloride Lvl (test code = Chloride Lvl) 96 95-109 [facility]2014-10-09 01:25:00 Test Item Value Reference Range Interpretation Comments Calcium Lvl (test code = Calcium Lvl) 9.2 8.5-10.5 [facility]2014-10-09 01:25:00 Test Item Value Reference Range Interpretation Comments AGAP (test code = AGAP) 6.5 10.0-20.0 [facility]2014-10-09 01:25:00 Test Item Value Reference Range Interpretation Comments Sodium Lvl (test code = Sodium Lvl) 139 135-145 [facility]2014-10-09 01:25:00 Test Item Value Reference Range Interpretation Comments Creatinine Lvl (test code = Creatinine 1.1 0.5-1.4 Lvl) [facility]2014-10-09 01:25:00 Test Item Value Reference Range Interpretation Comments BUN (test code = BUN) 20 7-22 [facility]2014-10-09 01:25:00 Test Item Value Reference Range Interpretation Comments Glucose Lvl (test code = Glucose Lvl) 199 70-99 [facility] HospitalYscmexnIVPPZGNCXG8587-24-25 01:25:00 Test Item Value Reference Range Interpretation Comments MCV (test code = MCV) 90.8 80.0-94.0 [facility] HospitalKgyjyviCZBRKKUYEN7527-29-95 01:25:00 Test Item Value Reference Range Interpretation Comments Hct (test code = Hct) 45.4 42.0-54.0 [facility] HospitalQxkqpnyUVMBZKKYGC7157-21-17 01:25:00 Test Item Value Reference Range Interpretation Comments MCH (test code = MCH) 31.6 pg 27.0-31.0 [facility] HospitalUczycyjUXUVBOHIPL3871-83-17 01:25:00 Test Item Value Reference Range Interpretation Comments RBC (test code = RBC) 5.00 4.70-6.10 [facility] HospitalSbvnotxOHJAAGUQHJ5512-80-97 01:25:00 Test Item Value Reference Range Interpretation Comments Hgb (test code = Hgb) 15.8 14.0-18.0 [facility] HospitalUbqtoobNRBVMDVALF0559-60-21 01:25:00 Test Item Value Reference Range Interpretation Comments WBC (test code = WBC) 8.5 3.7-10.4 [facility] HospitalUpahvejQKYMHEIAYX7058-08-46 01:25:00 Test Item Value Reference Range Interpretation Comments MCHC (test code = MCHC) 34.8 32.0-36.0 [facility] HospitalIanbqnqEIOSYWLCJT7836-48-21 01:25:00 Test Item Value Reference Range Interpretation Comments Platelet (test code = Platelet) 186 133-450 [facility] HospitalAzptnqmKKOYBOMPIC0702-36-75 01:25:00 Test Item Value Reference Range Interpretation Comments RDW (test code = RDW) 14.1 11.5-14.5 [facility] HospitalZbbaqtlKBQNZLSIKQ7728-16-11 01:25:00 Test Item Value Reference Range Interpretation Comments MPV (test code = MPV) 9.6 7.4-10.4 [facility] HospitalPedcinwQJZMTVDRNV7332-25-81 01:25:00 Test Item Value Reference Range Interpretation Comments Eosinophils # (test code 0.3 See_Comment [A utomated message] The = Eosinophils #) system whic h generated this result tra nsmitted reference range : <=0.5. The reference r jose alfredo was not used to int erpret this result as normal/abnormal . [facility] HospitalSknccmrOYCKDEPJKH4663-92-32 01:25:00 Test Item Value Reference Range Interpretation Comments Basophils # (test code 0.1 See_Comment [Aut omated message] The = Basophils #) system which generated this result tra nsmitted reference range : <=0.2. The reference r jose alfredo was not used to int erpret this result as normal/abnormal . [facility] HospitalDnfsjjnQPEZKEZCZP4765-89-98 01:25:00 Test Item Value Reference Range Interpretation Comments Monocytes # (test code 1.1 See_Comment [Aut omated message] The = Monocytes #) system which generated this result tra nsmitted reference range : <=0.8. The reference r jose alfredo was not used to int erpret this result as normal/abnormal . [facility] HospitalFzkkkxuDEXHLFLJPG7109-21-12 01:25:00 Test Item Value Reference Range Interpretation Comments Segs (test code = Segs) 62.9 45.0-75.0 [facility] HospitalFyjrgmzMIWSCKGSPK1169-21-63 01:25:00 Test Item Value Reference Range Interpretation Comments Lymphocytes # (test code = Lymphocytes 1.7 1.0-5.5 #) [facility] HospitalGcxlzufTSFKHUUAHA5839-41-07 01:25:00 Test Item Value Reference Range Interpretation Comments Eosinophils (test code = 3.0 See_Comment [A utomated message] The Eosinophils) system which ge nerated this result tra nsmitted reference range : <=4.0. The reference r jose alfredo was not used to int erpret this result as normal/abnormal . [facility] HospitalNmdegugLTMAYDJRBB7507-04-43 01:25:00 Test Item Value Reference Range Interpretation Comments Basophils (test code = 1.3 See_Comment [Aut omated message] The Basophils) system which ge nerated this result tra nsmitted reference range : <=1.0. The reference r jose alfredo was not used to int erpret this result as normal/abnormal . [facility] HospitalWywdpesRWITTZBCIV7397-43-70 01:25:00 Test Item Value Reference Range Interpretation Comments Monocytes (test code = Monocytes) 13.0 2.0-12.0 [facility] HospitalIsabkfdEZCSFSFKTY6098-07-73 01:25:00 Test Item Value Reference Range Interpretation Comments Lymphocytes (test code = Lymphocytes) 19.8 20.0-40.0 [facility] HospitalKauhcqnTKNCWKIWCA3261-26-22 01:25:00 Test Item Value Reference Range Interpretation Comments Segs-Bands # (test code = Segs-Bands #) 5.3 1.5-8.1 [facility]2014-10-09 01:25:00 Test Item Value Reference Range Interpretation Comments ALT (test code = ALT) 29 See_Comment [Auto mated message] The system which ge nerated this result transmit stuart reference range : <=65. The reference range was not used to interpr et this result as cherry l/abnormal. [facility]2014-10-09 01:25:00 Test Item Value Reference Range Interpretation Comments A/G Ratio (test code = A/G Ratio) 0.9 0.7-1.6 [facility]2014-10-09 01:25:00 Test Item Value Reference Range Interpretation Comments Alk Phos (test code = Alk Phos) 53 39-136 [facility]2014-10-09 01:25:00 Test Item Value Reference Range Interpretation Comments AST (test code = AST) 24 See_Comment [Auto mated message] The system which ge nerated this result transmit stuart reference range : <=37. The reference range was not used to interpr et this result as cherry l/abnormal. [facility]2014-10-09 01:25:00 Test Item Value Reference Range Interpretation Comments Bili Total (test code = Bili Total) 0.5 0.2-1.3 [facility]2014-10-09 01:25:00 Test Item Value Reference Range Interpretation Comments B/C Ratio (test code = B/C Ratio) 18 6-25 [facility]2014-10-09 01:25:00 Test Item Value Reference Range Interpretation Comments Globulin (test code = Globulin) 4.0 2.0-4.0 [facility]2014-10-09 01:25:00 Test Item Value Reference Range Interpretation Comments Total Protein (test code = Total 7.5 6.4-8.4 Protein) [facility]2014-10-09 01:25:00 Test Item Value Reference Range Interpretation Comments Albumin Lvl (test code = Albumin Lvl) 3.5 3.5-5.0 [facility]2014-10-09 01:25:00 Test Item Value Reference Range Interpretation Comments Potassium Lvl (test code = Potassium 4.5 3.5-5.1 Lvl) [facility]2014-10-09 01:25:00 Test Item Value Reference Range Interpretation Comments CO2 (test code = CO2) 41 24-32 [facility]2014-10-09 01:25:00 Test Item Value Reference Range Interpretation Comments Chloride Lvl (test code = Chloride Lvl) 96 95-109 [facility]2014-10-09 01:25:00 Test Item Value Reference Range Interpretation Comments Calcium Lvl (test code = Calcium Lvl) 9.2 8.5-10.5 [place] 309504-10-09 01:25:00 Test Item Value Reference Range Interpretation Comments AGAP (test code = AGAP) 6.5 10.0-20.0 [facility]2014-10-09 01:25:00 Test Item Value Reference Range Interpretation Comments Sodium Lvl (test code = Sodium Lvl) 139 135-145 [facility]2014-10-09 01:25:00 Test Item Value Reference Range Interpretation Comments Creatinine Lvl (test code = Creatinine 1.1 0.5-1.4 Lvl) [facility]2014-10-09 01:25:00 Test Item Value Reference Range Interpretation Comments BUN (test code = BUN) 20 7-22 [facility]2014-10-09 01:25:00 Test Item Value Reference Range Interpretation Comments Glucose Lvl (test code = Glucose Lvl) 199 70-99 [facility] HospitalLaptmhrZXOHBNEHGY9247-60-33 01:25:00 Test Item Value Reference Range Interpretation Comments MCV (test code = MCV) 90.8 80.0-94.0 [facility] HospitalEoffmxjJSCWTJLDKN5625-93-36 01:25:00 Test Item Value Reference Range Interpretation Comments Hct (test code = Hct) 45.4 42.0-54.0 [facility] HospitalWsifgvcGICVSLYVSN3867-88-34 01:25:00 Test Item Value Reference Range Interpretation Comments MCH (test code = MCH) 31.6 pg 27.0-31.0 [facility] HospitalKmuasxoIJZQUFOPEE3297-85-67 01:25:00 Test Item Value Reference Range Interpretation Comments RBC (test code = RBC) 5.00 4.70-6.10 [place] 681394-10-09 01:25:00 Test Item Value Reference Range Interpretation Comments Hgb (test code = Hgb) 15.8 14.0-18.0 [facility] HospitalYzsplxoWSJGPWCNGR2706-22-45 01:25:00 Test Item Value Reference Range Interpretation Comments WBC (test code = WBC) 8.5 3.7-10.4 [facility] HospitalPpmnfnjAAKWOOXZKK2223-67-73 01:25:00 Test Item Value Reference Range Interpretation Comments MCHC (test code = MCHC) 34.8 32.0-36.0 [facility] HospitalFnosmejSNIPHRCQHF1229-78-57 01:25:00 Test Item Value Reference Range Interpretation Comments Platelet (test code = Platelet) 186 133-450 [facility] HospitalRdnsrdfRXNEFEQAXL3190-68-56 01:25:00 Test Item Value Reference Range Interpretation Comments RDW (test code = RDW) 14.1 11.5-14.5 [facility] HospitalKawbmqoGRWCTHWYUS9039-35-17 01:25:00 Test Item Value Reference Range Interpretation Comments MPV (test code = MPV) 9.6 7.4-10.4 [facility] HospitalZskyolsMPPVWSBCJW5249-66-76 01:25:00 Test Item Value Reference Range Interpretation Comments Eosinophils # (test code 0.3 See_Comment [A utomated message] The = Eosinophils #) system whic h generated this result tra nsmitted reference range : <=0.5. The reference r jose alfredo was not used to int erpret this result as normal/abnormal . [facility] HospitalUwidpenTXDLAXUWHI0912-79-82 01:25:00 Test Item Value Reference Range Interpretation Comments Basophils # (test code 0.1 See_Comment [Aut omated message] The = Basophils #) system which generated this result tra nsmitted reference range : <=0.2. The reference r jose alfredo was not used to int erpret this result as normal/abnormal . [facility] HospitalGcufxwvGYBGCQCGYS7013-10-09 01:25:00 Test Item Value Reference Range Interpretation Comments Monocytes # (test code 1.1 See_Comment [Aut omated message] The = Monocytes #) system which generated this result tra nsmitted reference range : <=0.8. The reference r jose alfredo was not used to int erpret this result as normal/abnormal . [facility] HospitalDsyxkzqKWDIRZWICD3602-03-88 01:25:00 Test Item Value Reference Range Interpretation Comments Segs (test code = Segs) 62.9 45.0-75.0 [facility] HospitalQdbaenqPKMYTUCXJO7435-96-04 01:25:00 Test Item Value Reference Range Interpretation Comments Lymphocytes # (test code = Lymphocytes 1.7 1.0-5.5 #) [facility] HospitalEebrozwWYLURVSEDY0982-52-20 01:25:00 Test Item Value Reference Range Interpretation Comments Eosinophils (test code = 3.0 See_Comment [A utomated message] The Eosinophils) system which ge nerated this result tra nsmitted reference range : <=4.0. The reference r jose alfredo was not used to int erpret this result as normal/abnormal . [facility] HospitalFhxzayoAWPNMBRELE9386-33-25 01:25:00 Test Item Value Reference Range Interpretation Comments Basophils (test code = 1.3 See_Comment [Aut omated message] The Basophils) system which ge nerated this result tra nsmitted reference range : <=1.0. The reference r jose alfredo was not used to int erpret this result as normal/abnormal . [id number] 01:25:00 Test Item Value Reference Range Interpretation Comments Monocytes (test code = Monocytes) 13.0 2.0-12.0 [facility] [id number] 01:25:00 Test Item Value Reference Range Interpretation Comments Lymphocytes (test code = Lymphocytes) 19.8 20.0-40.0 [facility] [id number] 01:25:00 Test Item Value Reference Range Interpretation Comments Segs-Bands # (test code = Segs-Bands #) 5.3 1.5-8.1 [facility]
[2022-10-05] MEDS ORDERED: FENTANYL CITR 100 MCG/2 ML ONE (10:19)
[2022-10-05 10:34] LABS: Absolute Lymphocytes (CBC) 0.6 K/uL (0.7-4.9); Hematocrit 38.7 % (39.6-49.0); MCV 92.4 fL (80-100); MPV 8.9 fL (7.6-11.3); RBC Red Blood Cell Count 4.19 M/uL (4.33-5.43)
[2022-10-05 10:35] LABS: Protime INR 1.09
--- NOTE | 2022-10-05 10:48 | RAD REPORT ---
EXAM DESCRIPTION: Sita Shen Left10/05/2022 10:15 am CLINICAL HISTORY: Left leg pain status post injury FINDINGS: Comminuted spiral fracture distal diaphysis left tibia. Moderate displacement fracture fra gments. Angulation present at the fracture site Comminuted fracture distal diaphysis fibula. Moderate displacement fracture fragments No dislocation
--- NOTE | 2022-10-05 10:49 | RAD REPORT ---
EXAM DESCRIPTION: RAD - Knee Left 3 View - 10/05/2022 10:15 am CLINICAL HISTORY: Left knee pain FINDINGS: No fracture or dislocation seen
--- NOTE | 2022-10-05 10:49 | RAD REPORT ---
EXAM DESCRIPTION: RAD - Ankle Left 3 View -10/05/2022 10:15 am CLINICAL HISTORY: Left ankle pain status post injury FINDINGS: Comminuted spiral fracture distal diaphysis left tibia. Moderate displacement fracture fra gments. Angulation present at the fracture site Comminuted fracture distal diaphysis fibula. Moderate displacement fracture fragments No dislocation
[2022-10-05 10:57] LABS: Albumin 2.7 g/dL (3.4-5.0); Bilirubin Total 0.3 mg/dL (0.2-1.0); Potassium 3.6 mmol/L (3.5-5.1); Protein, Total 6.8 g/dL (6.4-8.2)
[2022-10-05 11:05] LABS: SARS-CoV-2 Antigen Rapid Res Negative (Negative)
--- NOTE | 2022-10-05 11:24 | ER ---
Nurse's Notes [facility] Name: Michael Duncan Age: 77 yrs Sex: Male : 1945 Arrival Date: 10/05/2022 Time: 09:21 Bed 4 Private MD: Diagnosis: Distal Tibia Fracture - Closed;Distal Fibula Fracture - Closed Presentation: 10/05 09:22 Chief complaint: EMS states: UNWITNESSED FALL AT [facility] WITH LEFT ANKLE DEFORMITY. bp Coronavirus screen: At this time, the client does not indicate any symptoms associated with coronavirus-19. Ebola Screen: No symptoms or risks identified at this time. Initial Sepsis Screen: Does the patient meet any 2 criteria? HR > 90 bpm. No. Patient's initial sepsis screen is negative. Does the patient have a suspected source of infection? No. Patient's initial sepsis screen is negative. Risk Assessment: Do you want to hurt yourself or someone else? Patient reports no desire to harm self or others. Onset of symptoms is unknown. Care prior to arrival: Splint applied. 09:22 Method Of Arrival: EMS: [facility] bp 09:22 Acuity: SHAZIA 2 bp Triage Assessment: 09:25 General: Appears distressed, obese, Behavior is cooperative, appropriate for age, bp anxious. Pain: Complains of pain in left medial ankle. EENT: No deficits noted. Neuro: No deficits noted. Cardiovascular: No deficits noted. Respiratory: No deficits noted. GI: No signs and/or symptoms were reported involving the gastrointestinal system. : No signs and/or symptoms were reported regarding the genitourinary system. Derm: No deficits noted. Musculoskeletal: Bony deformity noted of left foot. Historical: - Allergies: 09:25 caffiene; bp 09:25 Codeine; bp - Home Meds: 09:25 Xarelto 20 mg Oral tab [Active]; lisinopril 5 mg Oral tab [Active]; albuterol sulfate bp 0.63 mg/3 mL Inhl nebu [Active]; Depakote 125 mg Oral TbEC [Active]; Lasix 40 mg Oral tab [Active]; alprazolam 0.25 mg Oral tab [Active]; - PMHx: 09:25 Bipolar disorder; CHF; COPD; Depression; Dementia; Diabetes - NIDDM; High Cholesterol; bp Hyperlipidemia; Hypertension; - Immunization history:: Adult Immunizations up to date. - Social history:: Smoking status: Patient denies any tobacco usage or history of. Screenin: [facility] ED Fall Risk Assessment (Adult) History of falling in the last 3 months, bp including since admission Yes- single mechanical fall (1 pt) Confusion or Disorientation Yes (5 pts) Intoxicated or Sedated No (0 pts) Impaired Gait Yes (1 pt). Abuse screen: Denies threats or abuse. Denies injuries from another. Nutritional screening: On no prescribed diet. Tuberculosis screening: No symptoms or risk factors identified. Assessment: General: SEE TRIAGE NOTE. bp 11:20 Reassessment: REPORT TO ZEYAD SOLITARIO AT [facility] ER. bp Vital Signs: 09:22 BP 160 / 90; Pulse 120; Resp 18; Temp 98; Pulse Ox 98% on 3 lpm NC; bp 11:20 BP 133 / 96; Pulse 95; Resp 24; Pulse Ox 100% ; bp ED Course: : Patient arrived in ED. eb 09:21 attempted to call trauma alert at 916 with no answer / trauma alert called at 920. eb 09:22 Albert Aldrich, ALTAF is Primary Nurse. bp 09:24 Rey Grady PA is PHCP. jmm 09:24 Sam Arguelles MD is Attending Physician. jm 09:25 Triage completed. bp 09:25 Warm blanket given. Pillow given. Client placed on continuous cardiac and pulse mm9 oximetry monitoring. NIBP monitoring applied. value analysis coordinator on. Pulse ox on. NIBP on. 09:25 Arm band placed on. EKG completed in triage. Results shown to MD. EKG completed in bp triage. Results shown to MD. 09:30 Patient has correct armband on for positive identification. Bed in low position. Call bp light in reach. Side rails up X2. 09:43 Missed attempt(s): 22 gauge in right antecubital area. mm9 10:17 Tib Fib Left XRAY In Process Unspecified. EDMS 10:17 Knee Left 3 View XRAY In Process Unspecified. EDMS 10:17 Ankle Left 3 View XRAY In Process Unspecified. EDMS 10:19 Inserted saline lock: 20 gauge 22 gauge 24 gauge in left. bp 10:50 Orthoglass splint: Posterior long leg splint applied on left leg. stirrup splint mm9 applied on left leg. 10:51 SARS RAPID Sent. mm9 10:51 CMP Sent. mm9 10:52 initiated a transfer with Ashwini from the [facility]. 11:07 administrative approval given by Ashwini Escalante Rn/ patient has been accepted to [facility] ER/ Dr. Juan Bucio the trauma orthopedic composite bond worker has accepted the patient without conference with Rey Miranda/ report to be called to [phone]. 11:25 No provider procedures requiring assistance completed. Patient admitted, IV remains in bp place. Administered Medications: 10:19 Drug: fentaNYL (PF) 75 mcg Route: IVP; Site: left forearm; bp 11:27 Follow up: Response: No adverse reaction bp Outcome: 11:23 ER care complete, transfer ordered by MD. oconnell 11:25 Transferred by ground EMS bp 11:25 Condition: stable 11:25 Instructed on the need for transfer. 11:58 Patient left the ED. bp Signatures: Dispatcher [employer] EDMS Rey Grady PA PA jmm Peltier, Brian, RN RN Beverly Vazquez Maria mm9
--- NOTE | 2022-10-05 11:24 | EDPHYS ---
Physician Documentation [facility] Name: Michael Duncan Age: 77 yrs Sex: Male : 1945 Arrival Date: 10/05/2022 Time: 09:21 Bed 4 Private MD: ED Physician Sam Arguelles HPI: 10/05 09:30 This 77 yrs old Male presents to ER via EMS with complaints of ankle injury. jmm 09:30 The patient presents with an injury, pain. The complaints affect the left gary. Onset: jmm The symptoms/episode began/occurred acutely. This is a 77 year old male with a history of bipolar, chf, copd, dementia, dm that presents to the ED with complaints of left lower leg pain after a fall which occurred just prior to arrival. Patient states he tripped while attempting to get off his toilet. EMS states the fracture was posteriorly displaced at the lower tibia. . Historical: - Allergies: 09:25 caffiene; bp 09:25 Codeine; bp - Home Meds: 09:25 Xarelto 20 mg Oral tab [Active]; lisinopril 5 mg Oral tab [Active]; albuterol sulfate bp 0.63 mg/3 mL Inhl nebu [Active]; Depakote 125 mg Oral TbEC [Active]; Lasix 40 mg Oral tab [Active]; alprazolam 0.25 mg Oral tab [Active]; - PMHx: 09:25 Bipolar disorder; CHF; COPD; Depression; Dementia; Diabetes - NIDDM; High Cholesterol; bp Hyperlipidemia; Hypertension; - Immunization history:: Adult Immunizations up to date. - Social history:: Smoking status: Patient denies any tobacco usage or history of. ROS: 09:30 Constitutional: Negative for fever, chills, and weight loss, Cardiovascular: Negative jmm for chest pain, palpitations, and edema, Respiratory: Negative for shortness of breath, cough, wheezing, and pleuritic chest pain. 09:30 MS/extremity: Positive for pain. 09:30 All other systems are negative. Exam: 09:30 Constitutional: This is a well developed, well nourished patient who is awake, alert, jmm and in no acute distress. Head/Face: atraumatic. Eyes: EOMI, no conjunctival erythema appreciated ENT: Moist Mucus Membranes Neck: Trachea midline, Supple Chest/axilla: Normal chest wall appearance and motion. Cardiovascular: Regular rate and rhythm. No edema appreciated Respiratory: Normal respirations, no respiratory distress appreciated Abdomen/GI: Non distended Back: Normal ROM Skin: General appearance color normal 09:30 Musculoskeletal/extremity: ecchymosis noted to the left lower extremity, foot is warm, no dorsalis pedis pulse appreciated, compartments are soft. 09:30 Skin: ecchymosis noted to the left lower extremity. 09:30 Neuro: Motor: is normal. Vital Signs: 09:22 BP 160 / 90; Pulse 120; Resp 18; Temp 98; Pulse Ox 98% on 3 lpm NC; bp 11:20 BP 133 / 96; Pulse 95; Resp 24; Pulse Ox 100% ; bp MDM: 09:24 Patient medically screened. [facility] 11:20 Data reviewed: vital signs, nurses notes. Consideration of Admission/Observation. I kourtney considered the following discharge prescriptions or medication management in the emergency department Medications were administered in the Emergency Department. See MAR. Independent interpretation of the following test(s) in the Emergency Department X-Ray: My interpretation is distal tibia fracture, distal fibula fracture. Discussion of test interpretation with radiology: I had a discussion with radiology regarding a test interpretation. Counseling: I had a detailed discussion with the patient and/or guardian regarding: the historical points, exam findings, and any diagnostic results supporting the discharge/admit diagnosis, lab results, radiology results, the need to transfer to another facility. ED course: NO ortho, transferred to [facility]. [facility] does not accept trauma. . 10/05 09:28 Order name: CBC with Diff; Complete Time: 10:42 [facility] 10/05 09:28 Order name: PT-INR; Complete Time: 10:42 [facility] 10/05 09:25 Order name: Tib Fib Left XRAY; Complete Time: 10:52 [facility] 10/05 09:26 Order name: Knee Left 3 View XRAY; Complete Time: 10:52 [facility] 10/05 09:28 Order name: CMP; Complete Time: 10:58 [facility] 10/05 09:54 Order name: SARS RAPID; Complete Time: 11:13 10/05 09:26 Order name: Ankle Left 3 View XRAY; Complete Time: 10:52 [facility] 10/05 09:28 Order name: Saline Lock; Complete Time: 10:51 jm 10/05 10:00 Order name: Splint - Long Leg: Posterior w/ Stirrup; Complete Time: 10:51 jm Administered Medications: 10:19 Drug: fentaNYL (PF) 75 mcg Route: IVP; Site: left forearm; bp 11:27 Follow up: Response: No adverse reaction bp Disposition: 15:20 Co-signature as Attending Physician, Sam Arguelles MD I reviewed the patient's care rn provided by the Advanced Practice Provider and agree with the diagnosis and treatment plan. Disposition Summary: 10/05/22 11:23 Transfer Ordered Transfer Location: [facility] Reason: Higher level of care jmm Condition: Stable jm Problem: new jmm Symptoms: are unchanged jmm Accepting Physician: [facility] Trauma(10/05/22 11:58) bp Diagnosis - Distal Tibia Fracture - Closed jmm - Distal Fibula Fracture - Closed jm Forms: - Medication Reconciliation Form jmm - SBAR form jm Signatures: Dispatcher [employer] EDMS Rey Grady PA PA m Sam Arguelles MD MD rn Albert Aldrich RN RN bp Corrections: (The following items were deleted from the chart) 11:05 10:58 Lower Extremity Arterial Bilat+US.RAD.TOSHA ordered. EDSC EDMS 11:58 11:23 [facility] bp
[2022-10-05 12:08] VITALS: TEMP 98
[2022-10-05 13:24] VITALS: BP 133/96; O2SAT 100
== END 2022-10-05 11:58 | disposition short-term general hospital (02) ==
LOC: ER 09:20
PROC: 2W3MX1Z Immobilization of Left Lower Extremity using Splint (ICD-10-PCS; principal; 2022-10-05)
DX: S82.302A Unspecified fracture of lower end of left tibia, initial encounter for closed fracture (principal); S82.832A Other fracture of upper and lower end of left fibula, initial encounter for closed fracture; F03.90 Unspecified dementia, unspecified severity, without behavioral disturbance, psychotic disturbance, mood disturbance, and anxiety; I10 Essential (primary) hypertension; E11.9 Type 2 diabetes mellitus without complications; I50.9 Heart failure, unspecified; Z20.822 Contact with and (suspected) exposure to COVID-19; Z79.01 Long term (current) use of anticoagulants; Z88.5 Allergy status to narcotic agent; Z91.018 Allergy to other foods
CPT/HCPCS: 85025; 36415; 85610; 80053; 73562; 73590; 73610; 96374; 99285; 87811; 29505; J3010

== ENCOUNTER 2022-10-19 01:49 | Inpatient (IN) | payer OTHER ==
--- OUTSIDE RECORDS SUMMARY | 2022-10-19 02:14 | XMS REPORT | Continuity of Care Document ---
:1945 Author Organization [facility] t Address [address] [place] [address] Care Team Providers Name Role Phone PCP, PATIENT DOES NOT HAVE A Primary Care Physician UnavailJenna Mckeon Attending Clinician Unavailable ALEXY MOODY Attending Clinician Unavailable JUD DOCKERY Attending Clinician Unavailable ANDREW OVIEDO Attending Clinician Unavailable Andrew Oviedo MD Attending Clinician Erlin Rodriguez MD Attending Clinician Doctor Unassigned, [place] Attending Clinician Unavailable Giancarlo Murphy Attending Clinician JUD DOCKERY Admitting Clinician Unavailable ANDREW OVIEDO Admitting Clinician Unavailable Giancarlo Murphy Admitting Clinician Payers Payer Name Policy Type Policy Number Effective Date Expiration Date Jayden stewart [facility] [id number] 2022 OON EXCEPT HHS 00:00:[address] [facility] CI [id number] [facility] MEDICARE PART A \\T\\ B [id number] 2001 00:00:00 MEDICAID [facility] [id number] 2012 00:00:00 Problems Condition Condition Condition Status Onset Resolution Last Treating Co mments Source Name Details Category Date Date Treatment Clinician Date ABD PAIN . ABD PAIN Diagnosis Active 2017-06-19 Memoria . Active 05-22 18:24:00 l 05/22/2017 08:00: Rudy shankar 00 [place] WOUND WOUND Diagnosis Active 2017-04-03 Me moria Active 02-27 16:00:00 l 02/27/2017 08:00: Rudy shankar 00 [place] LEG LEG Diagnosis Active 2015-092016-07-29 Mem oria WEAKNESS WEAKNESS 09-26 15:57:00 l BILATERAL BILATERAL 00:00: Dorinda arenas Active 00 07/27/2016 [facility] WEAKNESS WEAKNESS Diagnosis Active 2016-05-30 Memoria Active 05-30 22:11:00 l 05/30/2016 07:00: Rudy shankar 00 [place] AMS AMS Diagnosis Active 2015-02-20 Mem oria Active 02-17 16:39:00 l 02/17/2015 00:00: Rudy HILL 00 [place] SOB SOB Diagnosis Active 2013-092015-05-19 Mem oria Active 008 09:41:00 l 06/08/2014 00:00: Rudy shankar 00 [place] Diabetes Diabetes Disease Active Unive rs mellitus mellitus 8-10 ity of type 2, type 2, 00:00: [place] controlled controlled 00 Nm dical Branch HLD HLD Disease Active Univers (hyperlipi (hyperlipi 8-10 it y of demia) demia) 00:00: [place] [facility] Essential Essential Disease Active Uni vers hypertensi hypertensi 8-10 it y of on, benign [place] Schizoaffe Schizoaffe Disease Active U nivers ctive ctive 8-10 ity of disorder disorder 00:00: [place] [facility] Low Low Disease Active Univers testostero testostero 8-10 it y of ne ne 00:00: [place] [facility] COPD COPD Disease Active Univers (chronic (chronic 8-10 ity of obstructiv obstructiv [place] Medical pulmonary pulmonary Bran ch disease) disease) CAD CAD Disease Active Univers (coronary (coronary 8-10 ity of artery artery 00:00: [place] disease) disease) 00 Medica l Branch Glaucoma Glaucoma Disease Active Unive rs 8-10 ity of 00:00: [place] [facility] Anxiety Anxiety Disease Active Overview: Univ [facility] state state 8-10 Formattin ity of 00:00: g of this [place] 00 note Medical might be Branch different from the original. 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 insulin use use Congestive Congestive Problem Active C ommon heart heart Spirit failure, failure, - [facility] unspecifie unspecifie St d HF d HF [facility] chronicity chronicity Me dical , , Center unspecifie unspecifie d heart d heart failure failure type type Essential Essential Problem Active Com mon (primary) (primary) Spir it hypertensi hypertensi - [facility] on on [facility] Depression Depression Problem Active C omjurgen with with Spirit anxiety anxiety - [facility] Acquired Acquired Problem Active Commo n hypothyroi hypothyroi Sp leila dism dism - [facility] Bipolar 1 Bipolar 1 Problem Active Com mon disorder, disorder, Spir it depressed, depressed, - [facility] full full St remission remission [facility] Hyperlipid Hyperlipid Problem Active C marlo emia, emia, Spirit unspecifie unspecifie - [facility]I d d St hyperlipid hyperlipid Jade ke emia type emia type [facility] Seasonal Seasonal Problem Active Commo n allergies allergies Spir it - [facility] Chronic Chronic Problem Active Common obstructiv obstructiv Sp leila e e - [facility]I pulmonary pulmonary St disease, disease, [facility] unspecifie unspecifie Me dical d COPD d COPD Center type type Type 2 Type 2 Problem Active Common diabetes diabetes Spirit mellitus mellitus - [facility] with foot with foot St ulcer ulcer [facility] Non-pressu Non-pressu Problem Active C marlo re chronic re chronic Sp leila ulcer of ulcer of - CHI other part other part St of right of right [facility] foot with foot with Medi magda other other Center specified specified severity severity Recurrent Recurrent Problem Active Com mon [place] Spirit while while - [facility]I walking walking [facility] Chronic Chronic Problem Active Common kidney kidney Spirit disease, disease, - [facility]I unspecifie unspecifie St d CKD d CKD [facility] stage stage [facility] Hypocalcem Hypocalcem Problem Active C ommon ia ia Spirit - [facility] Generalize Generalize Problem Active C ommon d muscle d muscle Spirit weakness weakness - [facility] Generalize Generalize Problem Active C ommon d weakness d weakness Sp leila - [facility] 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 - [facility] Bipolar Bipolar Problem Resolve 2017-06-13 M emoria (qualifier (qualifier d 00:54:32 l value) value) [place] Resolved Problem 06/13/2017 [facility] Acute Acute Problem Resolve 2017-06-13 David cedrick congestive congestive d 00:54:32 l heart heart [place] failure failure (disorder) (disorder) Resolved Problem 06/13/2017 [facility] Hypertensi Hypertens Problem Resolve 2017-06-13 Memoria ve forest d 00:54:32 l disorder, disorder, Herm deepa systemic systemic arterial arterial (disorder) (disorder) Resolved Problem 06/13/2017 [facility] Schizophre Schizophr Problem Resolve 2017-06-13 Memoria boubacar enia d 00:54:32 l (disorder) (disorder) He rmann Resolved Problem 06/13/2017 [facility] 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 00:54:32 l (disorder) (disorder) He rmann Resolved Problem 06/13/2017 [facility] Peptic Peptic Problem Resolve 2017-06-13 Mem oria ulcer with ulcer with d 00:54:32 l hemorrhage hemorrhage He rmann (disorder) (disorder) Resolved Problem 06/13/2017 [facility] Anxiety Anxiety Problem Active 2017-06-13 M emoria (finding) (finding) 00:54:32 l Active [place] Problem 06/13/2017 [facility] Arthritis Arthritis Problem Active 2017-06-13 Memoria (disorder) (disorder) 00:54:32 l Active [place] Problem 06/13/2017 [facility] Depressive Depressiv Problem Active 2017-06-13 Memoria disorder e disorder 00:54:32 l (disorder) (disorder) He rmann Active Problem 06/13/2017 [facility] Diabetes Diabetes Problem Active 2017-06-13 Memoria mellitus mellitus 00:54:32 l (disorder) (disorder) He rmann Active Problem 06/13/2017 [facility] Gastroesop Gastroeso Problem Active 2017-06-13 Memoria hageal phageal 00:54:32 l reflux reflux [place] disease disease (disorder) (disorder) Active Problem 06/13/2017 [facility] Narcosis Narcosis Problem Active 2017-06-13 Memoria (finding) (finding) 00:54:32 l Active [place] Problem 06/13/2017 [facility] CHR AIRWAY CHR Diagnosis Active 2015-05-19 Memoria OBSTRUCT AIRWAY 09:41:00 l NEC OBSTRUCT [place] NEC Active [facility] ALTERED ALTERED Diagnosis Active 2015-02-20 Memoria MENTAL MENTAL 16:39:00 l STATUS STATUS [place] Active [facility] UNSPECIFIE UNSPECIFI Diagnosis Active 2017-04-03 Memoria D OPEN ED OPEN 16:00:00 l WOUND, WOUND, [place] RIGHT RIGHT FOOT, SUBS FOOT, SUBS Active [facility] NON-PRS NON-PRS Diagnosis Active 2015-09-18 Memoria CHRONIC CHRONIC 16:01:00 l ULCER OTH ULCER OTH Herm deepa PRT RIGHT PRT RIGHT FOOT FOOT Active [facility] TYPE 2 TYPE 2 Diagnosis Active 2015-11-22 M emoria DIABETES W DIABETES W 08:18:00 l DIABETIC DIABETIC Rudy n PERIPHERAL PERIPHERAL AN AN Active [facility] TINEA TINEA Diagnosis Active 2016-05-07 Mem oria UNGUIUM UNGUIUM 16:57:00 l Active Rudy n [facility] TYPE 2 TYPE 2 Diagnosis Active 2016-05-07 Me moria DIABETES DIABETES 16:57:00 l MELLITUS MELLITUS Rudy n WITH WITH DIABETIC P DIABETIC P Active [facility] NON-PRS NON-PRS Diagnosis Active 2016-01-09 Memoria CHRONIC CHRONIC 15:34:00 l ULCER OTH ULCER OTH Herm deepa PRT R FOOT PRT R FOOT [address]RE[address] STRE[address] Active [facility] CORNS AND CORNS AND Diagnosis Active 2016-05-07 Memoria CALLOSITIE CALLOSITIE 16:57:00 l S S Active [facility] MUSCLE MUSCLE Diagnosis Active 2016-07-29 Me moria WEAKNESS WEAKNESS 15:57:00 l (GENERALIZ ([facility] Active [facility] CHOLECYSTI Diagnosis Active 2017-11-11 Memoria TIS, CHOLECYSTI 12:12:00 l UNSPECIFIE Rudy CARRENO n D UNSPECIFIE D Active [facility] History of Past Illness Condition Condition Condition Status Onset Resolution Last Treating Co mments Source Name Details Category Date Date Treatment Clinician Date Discharge Discharge Problem 2016-06-02 2016-06-02 Memoria Diagnosis: Diagnosis: 05-30 03:26:48 03:26:48 l Fatigue Fatigue 05:00: [place] 05/30/2016 00 06/02/2016 [facility] Discharge Discharge Problem 2016-06-02 2016-06-02 Memoria Diagnosis: Diagnosis: 05-30 03:26:48 03:26:48 l Acute Acute 05:00: [place] renal renal 00 insufficie insufficie ncy ncy 05/30/2016 6 [facility] Discharge Discharge Problem 2016-06-02 2016-06-02 Memoria Diagnosis: Diagnosis: 05-30 03:26:48 03:26:48 l Dehydratio Dehydratio 05:00: Kain weston n n 00 05/30/2016 6 [facility] Allergies, Adverse Reactions, Alerts Allergy Allergy Status Severity Reaction(s) Onset Inactive Treating Comm ents Source Name Type Date Date Clinician CODEINE DRUG Active Unknown-Cmnt Uni vers INGREDI 05-14 ity of 00:00: [place] 00 Medical Branch Codeine Propensi Active Unknown - Univ ers ty to See comments 05-14 ity of adverse 00:00: [place] reaction 00 Medical s Branch codeine codeine Active Barney l [place] caffeine caffeine Active Memori a l [place] codeine Adverse Active Info Not Common Reaction Available Spiri t - [facility] Social History Social Habit Start Date Stop Date Quantity Comments Source History SDOH University o f Alcohol Frequency [place] M ed[facility] History SDOR University o f Alcohol Std [place] Medical Drinks Branch History SDOR University o f Alcohol Binge [place] [facility] al Branch History of Chews Tobacco University of tobacco use [place] [facility] Exposure to 2021-12-31 2022-01-10 Not sure University of SARS-CoV-2 00:00:00 08:40:00 [place] [facility] (event) Branch Social History 2015-02-17 2015-02-17 Mary colbert 18:36:27 18:36:27 Alcohol intake 2012-12-31 2012-12-31 Current University of 00:00:00 00:00:00 non-drinker of [facility] alcohol Branch (finding) Alcohol Comment 2011-06-28 2011-06-28 quit alcohol Univers ity of 00:00:00 00:00:00 [facility] [place] [facility] Tobacco use and 2011-06-28 2011-06-28 Current user Univers ity of exposure 00:00:00 00:00:00 [facility] Sex [birth year] Universit y of 00:00:00 00:00:00 [facility] Smoking Status Start Date Stop Date Source Former smoker 2011-06-28 00:00:00 2011-06-28 00:00:00 [facility] Medications Ordered Filled Start Stop Current Ordering Indication Dosage Frequency Signature Comments Components Source Medication Medication Date Date Medication? Clinician (SIG) Name Name Carvedilol Carvedilol Yes Jenna 1 tablet Common 9-26 [facility] Spirit 00:00: - [facility] Glucometer Glucometer Yes Jenna one strip Common test strips test strips 9-16 Mill[place] using the Spirit 00:00: [facility] Albuterol 2017-09 Yes Jenna 3 ml as Common Sulfate Sulfate 2-18 Millender needed Sp leila 00:00: - [facility] fluconazole 2016-09 Yes 200 mg = 2 Memoria 100 mg oral 0-10 tab, PO, l tablet 21:09: [id number], 0 Padmini nn 00 Refill(s) fluconazole 2016-09 Yes 200 mg = 2 Memoria 100 mg oral 0-10 tab, PO, l tablet 21:09: [id number], 0 Padmini nn 00 Refill(s) fluconazole 2016-09 Yes 200 mg = 2 Memoria 100 mg oral 0-10 tab, PO, l tablet 21:09: [id number], 0 Padmini nn 00 Refill(s) Saline 2016-09 No 10 mL, Memoria Flush 0.9% 0-10 Route: l 21:00: IVP, Drug Form: INJ, Dosing Weight 118.682, kg, Q8H, Start date: 06/10/17 16:00:00 CDT, Duration: 30 day, Stop date: 07/10/17 8:00:00 COFOUNDER Lidocaine 2016-09 No Notes: Memori a Hydrochlori 0-10 Preservati l de 10 MG/ML 21:00: ve free. He rmann Injectable 00 (Same as: Solution Xylocaine MPF) Saline 2016-09 No 10 mL, Memoria Flush 0.9% 0-10 Route: l 21:00: IVP, Drug [place] 00 Form: INJ, Dosing Weight 118.682, kg, Q8H, Start date: 06/10/17 16:00:00 CDT, Duration: 30 day, Stop date: 07/10/17 8:00:00 COFOUNDER Lidocaine 2016-09 No Notes: Memori a Hydrochlori 0-10 Preservati l de 10 MG/ML 21:00: ve free. He rmann Injectable 00 (Same as: Solution Xylocaine MPF) Saline 2016-09 No 10 mL, Memoria Flush 0.9% 0-10 Route: l 21:00: IVP, Drug [place] 00 Form: INJ, Dosing Weight 118.682, kg, Q8H, Start date: 06/10/17 16:00:00 CDT, Duration: 30 day, Stop date: 07/10/17 8:00:00 COFOUNDER Lidocaine 2016-09 No Notes: Memori a Hydrochlori 0-10 Preservati l de 10 MG/ML 21:00: ve free. He rmann Injectable 00 (Same as: Solution Xylocaine MPF) Saline 2016-09 No Notes: Memoria Flush 0.9% 0-10 (Same as: l 20:41: BD [place] 00 Posiflush) Saline 2016-09 No Notes: Memoria Flush 0.9% 0-10 (Same as: l 20:41: BD [place] 00 Posiflush) Saline 2016-09 No Notes: Memoria Flush 0.9% 0-10 (Same as: l 20:41: BD [place] 00 Posiflush) Lidocaine 2016-09 No 5 mL, Memoria Hydrochlori 0-10 Route: l de 10 MG/ML 19:00: INTRADERM, [place] Injectable 00 Dosing Solution Weight 118.682, kg, ONCALL, Start date: 06/10/17 14:00:00 CDT, Duration: 30 day, Stop date: 07/10/17 12:59:00 COFOUNDER BD Normal 2016-09 No Notes: Memori a Saline 0-10 (Same as: l Flush 19:00: BD [place] 00 Posiflush) Lidocaine 2016-09 No 5 mL, Memoria Hydrochlori 0-10 Route: l de 10 MG/ML 19:00: INTRADERM, [place] Injectable 00 Dosing Solution Weight 118.682, kg, ONCALL, Start date: 06/10/17 14:00:00 CDT, Duration: 30 day, Stop date: 07/10/17 12:59:00 COFOUNDER BD Normal 2016-09 No Notes: Memori a Saline 0-10 (Same as: l Flush 19:00: BD [place] 00 Posiflush) Lidocaine 2016-09 No 5 mL, Memoria Hydrochlori 0-10 Route: l de 10 MG/ML 19:00: INTRADERM, [place] Injectable 00 Dosing Solution Weight 118.682, kg, ONCALL, Start date: 06/10/17 14:00:00 CDT, Duration: 30 day, Stop date: 07/10/17 12:59:00 COFOUNDER BD Normal 2016-09 No Notes: Memori a Saline 0-10 (Same as: l Flush 19:00: BD [place] 00 Posiflush) Saline 2016-09 No Notes: Memoria Flush 0.9% 0-10 (Same as: l 18:26: BD [place] 00 Posiflush) Saline 2016-09 No Notes: Memoria Flush 0.9% 0-10 (Same as: l 18:26: BD [place] 00 Posiflush) Saline 2016-09 No Notes: Memoria [...] 0.9% 0-10 (Same as: l 17:59: BD [place] 00 Posiflush) Saline 2016-09 No Notes: Memoria Flush 0.9% 0-10 (Same as: l 17:59: BD [place] 00 Posiflush) Saline 2016-09 No Notes: Memoria [...] Dissolve l 17:11: in 8 oz of [place] 00 water or juice. (Same as: Miralax) [...] Memoria 0-03 (Same as: l 16:00: Zosyn) [place] 00 Dosing based on Piperacill in component [...] [place] 00 ) Push over 5 minutes Hydralazine 2016-09 No Notes: David cedrick 0-03 (Same as: l 07:17: Apresoline ) Push over 5 minutes Hydralazine 2016-09 No Notes: David cedrick 0-03 (Same as: l 07:17: Apresoline ) Push over 5 minutes Diflucan 2016-09 No Notes: Memoria 0-01 (Same as: l 20:00: Diflucan) [place] 00 Diflucan 2016-09 No Notes: Memoria 0-01 (Same as: l 20:00: Diflucan) [place] 00 Diflucan 2016-09 No Notes: Memoria 0-01 (Same as: l 20:00: Diflucan) [place] 00 Lasix 2016-09 No Notes: Memoria 0-01 (Same as: l 15:04: Lasix) Lasix 2016-09 No Notes: Memoria 0-01 (Same as: l 15:04: Lasix) Lasix 2016-09 No Notes: Memoria 0-01 (Same [...] Flagyl) Avoid alcohol. Flagyl No Notes: Memoria 9-30 (Same as: l 21:00: Flagyl) Avoid alcohol. Flagyl No Notes: Memoria 9-30 (Same as: l 21:00: Flagyl) Avoid alcohol. Lovenox No 30 mg, Memoria 9-29 Route: l 18:00: SUB-Q, Drug form: INJ, [id number], Dosing Weight 118.682, kg, For CrCl <30mL/min, Start date: 05/30/17 13:00:00 CDT, Duration: 30 day, Stop date: 06/28/17 13:00:00 CDT Lovenox 2016-0 No 30 mg, Memoria 05-30 Route: l 18:00: SUB-Q, Drug form: INJ, [id number], Dosing Weight 118.682, kg, For CrCl <30mL/min, Start date: 05/30/17 13:00:00 CDT, Duration: 30 day, Stop date: 06/28/17 13:00:00 CDT Lovenox 2016-0 No 30 mg, Memoria 05-30 Route: l 18:00: SUB-Q, Drug form: INJ, [id number], Dosing Weight 118.682, kg, For CrCl <30mL/min, [...] Dulcolax, Bisco-Lax) Dulcolax No Notes: Memoria Laxative 9-25 (Same As: l 20:24: Dulcolax, [place] 00 Bisco-Lax) Dulcolax No Notes: Memoria Laxative 9-25 (Same As: l 20:24: Dulcolax, [place] 00 Bisco-Lax) timolol No Notes: Memoria ophthalmic 9-25 (Same As: l 19:00: Timoptic, [place] 00 Betimol) timolol No Notes: Memoria ophthalmic 9-25 (Same As: l 19:00: Timoptic, [place] 00 Betimol) timolol No Notes: Memoria ophthalmic [...] l / 16:00: Duoneb) [place] Ipratropium 00 [place] 0.167 MG/ML Inhalant Solution Albuterol No Notes: Memori a 0.833 MG/ML 9-24 (Same as: l / 16:00: Duoneb) [place] Ipratropium 00 [place] 0.167 MG/ML Inhalant Solution Albuterol No Notes: Memori a 0.833 MG/ML 9-24 (Same as: l / 16:00: Duoneb) [place] Ipratropium 00 [place] 0.167 MG/ML Inhalant Solution Budesonide No Notes: [...] Budesonide No Notes: Memor ia 0.25 MG/ML 924 (Same As: l Inhalant 01:00: Pulmicort) Her andujar Solution 00 [Pulmicort] Dextrose 2016-0 No 50 mL, Memoria 50% [...] date: 05/24/17 19:24:00 CDT Dextrose 2016-0 No 25 gm, Memoria 05-24 Route: l 23:34: IVPB, [place] 00 ONCE, Dosing Weight 118.682, kg, Start date: 05/24/17 18:34:00 CDT, Stop date: 05/24/17 18:34:00 CDT Dextrose 2017-0 No 25 gm, Memoria 9- Route: l 23:34: IVPB, [place] 00 ONCE, Dosing Weight 118.682, kg, Start date: 05/24/17 18:34:00 CDT, Stop date: 05/24/17 18:34:00 CDT Dextrose 2017-0 No 25 gm, Memoria 9 Route: l 23:34: IVPB, [place] 00 ONCE, Dosing Weight 118.682, kg, Start date: 05/24/17 18:34:00 CDT, Stop date: 05/24/17 18:34:00 CDT Insulin 2017-0 No 15 unit, Memori a regular - Route: IV, l 23:23: ONCE, [place] 00 Dosing Weight 118.682, kg, Priority: NOW, Start date: 05/24/17 18:23:00 CDT, Stop date: 05/24/17 18:23:00 CDT Insulin 2017-0 No 15 unit, Memori a regular 05-24 Route: IV, l 23:23: ONCE, [place] 00 Dosing Weight 118.682, kg, Priority: NOW, Start date: 05/24/17 18:23:00 CDT, Stop date: 05/24/17 18:23:00 CDT Insulin 2017-0 No 15 unit, Memori a regular 05-24 Route: IV, l 23:23: ONCE, [place] 00 Dosing Weight 118.682, kg, Priority: NOW, Start date: 05/24/17 18:23:00 CDT, Stop date: 05/24/17 18:23:00 CDT sodium 2017-0 No 1,000 mL, Memori a chloride - Rate: 75 l 0.9% 1000 17:41: ml/hr, [...] Notes: Memoria - (Same as: l 14:00: Sepuvia) omega-3 No Notes: Memoria polyunsatur 05-24 (Same as: l ated fatty 14:00: MaxEPA, Herm deepa acids 00 [place] 3 fish oil ) Non-Formul genaro Drug [...] 14:00: Januvia) omega-3 No Notes: Memoria polyunsatur - (Same as: l ated fatty 14:00: MaxEPA, Herm deepa acids 00 [place] 3 fish oil ) Non-Formul genaro Drug [...] (0.5 mL IM) Shake well before use Sepuvia No Notes: Memoria 05-24 (Same as: l 14:00: Januvia) omega-3 No Notes: Memoria polyunsatur 05-24 (Same as: l ated fatty 14:00: MaxEPA, Herm deepa acids 00 [place] 3 fish oil ) Non-Formul genaro Drug Vitamin D3 No Notes: Memor ia 05-24 Same as : l 14:00: Vitamin D3 venlafaxine No Notes: David cedrick 05-24 (Same As: l 14:00: Effexor) Albuterol No Notes: Memori a 0.833 MG/ML 05-24 (Same as: l / 13:46: Duoneb) [place] Ipratropium 00 [place] 0.167 MG/ML Inhalant Solution [DuoNeb] Albuterol No Notes: Memori a 0.833 MG/ML 05-24 (Same as: l / 13:46: Duoneb) [place] Ipratropium 00 [place] 0.167 MG/ML Inhalant Solution [DuoNeb] Albuterol No Notes: Memori a 0.833 MG/ML 05-24 (Same as: l / 13:46: Duoneb) [place] Ipratropium 00 [place] 0.167 MG/ML Inhalant Solution [DuoNeb] tiotropium No [...] cedrick 05-24 (Same as: l 02:00: Tricor) [place] 00 24 HR No Notes: Memoria Divalproex [...] Tricor) 24 HR No Notes: Memoria Divalproex - (Same as: l Sodium 500 02:00: Depakote [...] cedrick 05-24 (Same as: l 02:00: Tricor) [place] 00 24 HR No Notes: Memoria Divalproex 05-24 (Same as: l Sodium 500 02:00: Depakote Her andujar MG Extended 00 ER) Once Release daily Tablet dosing; indicated for migraines. Divalproex sodium extended-r elease tab. Do not chew or crush. "Do Not Crush" Ipratropium No Notes: SEE Memoria 05-24 RT l 00:00: DOCUMENTAT [place] 00 ION (Same as:Atroven t) Ipratropium No Notes: SEE Memoria 05-24 RT l 00:00: DOCUMENTAT [place] 00 ION (Same as:Atroven t) Ipratropium No [...] with Aerosol - adapter Return to Pharmacy [facility] No 2.25 gm, Memoria 05-23 Route: IV, l 21:00: Q8H, [place] 00 Dosing Weight 109.545, kg, Start date: 05/23/17 16:00:00 CDT, Duration: 30 day, Stop date: 06/22/17 8:00:00 CDT, ABX Indication : Intra-abdo jelly Infection Symbicort No Notes: Memori a 160/4.5 05-23 (Same as: l inhalation 21:00: Symbicort) H ermann aerosol WASTE: with Aerosol - adapter Return to Pharmacy [facility] No 2.25 gm, Memoria 05-23 Route: IV, [...] 9-22 not crush l 18:00: or chew. [place] 00 (Same As: Ecotrin) Amlodipine No Notes: Memor ia - (Same as: l 18:00: Norvasc) Amiodarone No Notes: Memor ia -22 (Same as: l 18:00: Cordarone) Zosyn No 2.25 gm, Memoria 9 Route: l 18:00: IVPB, Drug form: PDR/INJ, [id number], Dosing Weight 118.682, kg, Start date: 05/23/17 13:00:00 CDT, Duration: 10 day, Stop date: 06/02/17 5:00:00 CDT, ABX Indication : Intra-abdo jelly Infection Buspirone No Notes: Memori a 05-23 (Same As: l 18:00: BuSpar) Aspirin No Notes: Do Memor ia -22 not crush l 18:00: or chew. [place] 00 (Same As: Ecotrin) Amlodipine No Notes: [...] a 9-22 (Same As: l 18:00: BuSpar) [place] 00 Aspirin No Notes: Do Memor ia 9-22 not crush l 18:00: or chew. [place] 00 (Same As: Ecotrin) Amlodipine No Notes: Memor ia 9-22 (Same as: l 18:00: Norvasc) Amiodarone No Notes: Memor ia 05-23 (Same as: l 18:00: Cordarone) Alprazolam No Notes: Memor ia 05-23 With food l 17:42: or milk [place] 00 (Same as: Xanax) Alprazolam No Notes: Memor ia 05-23 With food l 17:42: or milk [place] 00 (Same as: Xanax) Alprazolam No Notes: Memor ia 05-23 With food l 17:42: or milk [place] 00 (Same as: Xanax) Insulin No 60 units) David cedrick Lispro 05-23 WASTE: l 17:40: F/P - [place] Black; E - [facility] Trash Bin Stable for 28 days at room temperatur e. Expires in days from ____Date Dextrose No 12.5 gm, Memor ia 50% Syringe 05-23 25 mL, l 17:40: Route: [place] 00 IVP, Drug Form: INJ, Dosing Weight [...] WASTE: F/P l 17:40: - Black; E [place] 00 - Municipal Trash Bin Stable for 28 [...] F/P l 17:40: - Black; E - [facility] Trash Bin Stable for 28 days at room temperatur e. Expires in days from ____Date Dextrose 0 No 12.5 gm, Memor ia 50% Syringe 05-23 25 mL, l 17:40: Route: IVP, Drug Form: INJ, Dosing Weight 118.682, kg, PRN, PRN Blood Glucose Results, Start date: 05/23/17 12:40:00 CDT, Duration: 30 day, Stop date: 06/22/17 12:39:00 CDT Glucagon 2016-0 No 1 mg, Memoria 05-23 Route: IM, l 17:40: Drug form: [place] 00 PDR/INJ, PRN, Dosing Weight 118.682, kg, PRN Blood Glucose Results, Start date: 05/23/17 12:40:00 CDT, Duration: 30 day, Stop date: 06/22/17 12:39:00 CDT Baclofen 2016-0 No Notes: Memoria 05-23 (Same As: l 17:15: Lioresal) Baclofen No Notes: Memoria 05-23 (Same As: l 17:15: Lioresal) Baclofen No Notes: Memoria 05-23 (Same As: l 17:15: Lioresal) Aspirin 81 2017-0 No 81 mg = 1 Me moria MG Chewable 9-22 tab, PO, l Tablet 16:29: Daily, [place] 00 tab, 0 Refill(s) 24 HR Yes 500 mg = 1 Memori a Divalproex 9-22 tab, PO, l Sodium 500 16:29: Bedtime, # H ermann MG Extended 00 30 tab, 0 Release Refill(s) Tablet Aspirin 81 No 81 mg = 1 Me moria MG Chewable 9-22 tab, PO, l Tablet 16:29: Daily, [place] 00 tab, 0 Refill(s) 24 HR Yes 500 mg = 1 Memori a Divalproex 9-22 tab, PO, l Sodium 500 16:29: Bedtime, # H ermann MG Extended 00 30 tab, 0 Release Refill(s) Tablet Aspirin 81 No 81 mg = 1 Me moria MG Chewable 9-22 tab, PO, l Tablet 16:29: Daily, [place] 00 tab, 0 Refill(s) 24 HR Yes 500 mg = 1 Memori a Divalproex 9-22 tab, PO, l Sodium 500 16:29: Bedtime, # H ermann MG Extended 00 30 tab, 0 Release Refill(s) Tablet Zosyn + No Notes: Memoria sodium 9-22 (Same as: l chloride 16:00: Zosyn) [place] 0.9% INJ 00 Dosing 100 mL based on Piperacill in component MEDICATION WASTE Product Size: 3375 mg Product Wasted: ___ mg Zosyn + No Notes: Memoria sodium 9-22 (Same as: l chloride 16:00: Zosyn) [place] 0.9% INJ 00 Dosing 100 mL based on Piperacill in component MEDICATION WASTE Product Size: 3375 mg Product Wasted: ___ mg Zosyn + No Notes: Memoria sodium 9-22 (Same as: l chloride 16:00: Zosyn) [place] 0.9% INJ 00 Dosing 100 mL based [...] 3375 mg Product Wasted: ___ mg Morphine 2016-0 No 2 mg, 1 Memori a 9-22 mL, Route: l 14:57: IVP, Drug [place] 00 form: SOLN, Q4H, Dosing Weight 109.545, kg, PRN Pain Score 7-10, Priority: STAT, Start date: 05/23/17 9:57:00 CDT, Stop date: 06/22/17 9:56:00 CDT Zofran 2017-0 No Notes: Memoria 05-23 (Same as: l 14:57: Zofran) [place] 00 MEDICATION WASTE Product Size: 4 mg Product Wasted: ___ mg Morphine 2016-0 No 2 mg, 1 Memori a 9-22 mL, Route: l 14:57: IVP, Drug [place] 00 form: SOLN, Q4H, Dosing Weight 109.545, kg, PRN Pain Score 7-10, Priority: STAT, Start date: 05/23/17 9:57:00 CDT, Stop date: 06/22/17 9:56:00 CDT Zofran 2017-0 No Notes: Memoria 05-23 (Same as: l 14:57: Zofran) [place] 00 MEDICATION WASTE Product Size: 4 mg Product Wasted: ___ mg Morphine 2016-0 No 2 mg, 1 Memori a 9-22 mL, Route: l 14:57: IVP, Drug form: SOLN, Q4H, Dosing Weight 109.545, kg, PRN Pain Score 7-10, Priority: STAT, Start date: 05/23/17 9:57:00 CDT, Stop date: 06/22/17 9:56:00 CDT Zofran 2017-0 No Notes: Memoria 05-23 (Same as: l [...] CDT, Stop date: 05/23/17 9:27:00 CDT Morphine 2016-0 No 4 mg, Memoria 05-23 Route: l [...] l injectable 11:50: STAT, Rudy n solution Start date: 05/23/17 6:50:00 CDT, Duration: 1 doses or times Morphine 2017-0 No Notes: Memoria 9-22 (Same l 11:10: as:MORPhin [place] 00 e Sulfate) Morphine No Notes: Memoria 9-22 (Same l 11:10: as:MORPhin [place] 00 e Sulfate) Morphine No Notes: Memoria 9-22 (Same l 11:10: as:MORPhin [place] 00 e Sulfate) Saline No Notes: Memoria [...] Plus 09-28 Route: PO, l 15:00: Dosing [place] Weight 109.545, kg, Daily, Start date: 07/29/16 9:00:00 COFOUNDER, Duration: 30 day, Stop date: 08/27/16 9:00:00 COFOUNDER Aspirin 2015-09 No 81 mg, Memoria 09-28 Route: PO, l 15:00: Daily, [place] 00 Dosing Weight 109.545, kg, Start date: 07/29/16 9:00:00 COFOUNDER, Duration: 30 day, Stop date: 08/27/16 9:00:00 COFOUNDER tiotropium 2015-09 No Notes: Memor ia 0.018 09-28 (Same As: l MG/ACTUAT 15:00: Spiriva). Her andujar Inhalant 00 Powder [Spiriva] One-A-Day 2015-09 No 1 tab, Memori a Men 50 Plus -28 Route: PO, l 15:00: Dosing [place] 00 Weight 109.545, kg, Daily, Start date: 07/29/16 9:00:00 COFOUNDER, Duration: 30 day, Stop date: 08/27/16 9:00:00 COFOUNDER Aspirin 2015-09 No 81 mg, Memoria 09-28 Route: PO, l 15:00: Daily, [place] 00 Dosing Weight 109.545, kg, Start date: 07/29/16 9:00:00 COFOUNDER, Duration: 30 day, Stop date: 08/27/16 9:00:00 COFOUNDER tiotropium 2015-09 No Notes: Memor ia 0.018 09-28 (Same As: l MG/ACTUAT 15:00: Spiriva). Her andujar Inhalant 00 Powder [Spiriva] One-A-Day 2015-09 No 1 tab, Memori a Men 50 Plus 09-28 Route: PO, l 15:00: Dosing [place] 00 Weight 109.545, kg, Daily, Start date: 07/29/16 9:00:00 COFOUNDER, Duration: 30 day, Stop date: 08/27/16 9:00:00 COFOUNDER Aspirin 2015-09 No 81 mg, Memoria 09-28 Route: PO, l 15:00: Daily, [place] 00 Dosing Weight 109.545, kg, Start date: 07/29/16 9:00:00 COFOUNDER, Duration: 30 day, Stop date: 08/27/16 9:00:00 COFOUNDER Levemir 2015-09 No Notes: Memoria FlexPen 09-28 [...] Weight 109.545, kg, Start date: 07/28/16 21:00:00 COFOUNDER, Duration: 30 day, Stop date: 08/26/16 21:00:00 COFOUNDER Levemir 2015-09 No Notes: Memoria FlexPen 1-28 Same as l 03:00: Levemir Do [place] 00 not hold insulin without contacting prescriber WASTE: F/P - Black; E - Municipal Trash Bin "single patient use only" Trazodone 2015-09 No Notes: Memori a 1-28 (Same As: l 03:00: Desyrel) [place] Risperidone 2015-09 No Notes: David cedrick -28 (Same as: l 03:00: Risperdal) [place] 00 latanoprost 2015-09 No Notes: David cedrick 0.05 MG/ML - Keep l Ophthalmic 03:00: refrigerat H ermann Solution 00 ed. (Same as:Xalatan ) Insulin 2015-09 No 30 unit, Memori a Glargine 09-28 Route: l 100 UNT/ML 03:00: SUB-Q, Padmini nn Injectable 00 Drug form: Solution SOLN, [Lantus] Bedtime, Dosing Weight 109.545, kg, Start date: 07/28/16 21:00:00 COFOUNDER, Duration: 30 day, Stop date: 08/26/16 21:00:00 COFOUNDER Levemir 2015-09 No Notes: Memoria FlexPen -28 Same as l 03:00: Levemir Do [place] not hold insulin without contacting prescriber WASTE: F/P - Black; E - Municipal Trash Bin "single patient use only" Trazodone 2015-09 No Notes: Memori a 1-28 (Same As: l 03:00: Desyrel) [place] Risperidone 2015-09 No Notes: David cedrick 1-28 (Same as: l 03:00: Risperdal) [place] latanoprost 2015-09 No Notes: David cedrick 0.05 MG/ML - Keep l Ophthalmic 03:00: refrigerat [place] Solution 00 ed. (Same as:Xalatan ) Insulin 2015-09 No 30 unit, Memori a Glargine 09-28 Route: l 100 UNT/ML 03:00: SUB-Q, Padmini nn Injectable 00 Drug form: Solution SOLN, [Lantus] Bedtime, Dosing Weight 109.545, kg, Start date: 07/28/16 21:00:00 COFOUNDER, Duration: 30 day, Stop date: 08/26/16 21:00:00 COFOUNDER Docusate 2015-09 No Notes: Memoria Sodium 100 1-27 (Same as: l MG Oral 23:00: Colace) [place] Capsule 00 (Do Not Crush) Brimonidine 2015-09 No Notes: David cedrick tartrate 1-27 (Same As: l 1.5 MG/ML 23:00: Alphagan) Her andujar Ophthalmic 00 Solution Betaxolol 2015-09 No 2 drp, Memori a 2.5 MG/ML - Route: l Ophthalmic 23:00: BOTH EYES, H ermann Suspension 00 BID, Drug [Betoptic form: S] SUSP, Start date: 07/28/16 17:00:00 COFOUNDER, Duration: 30 day, Stop date: 08/27/16 9:00:00 COFOUNDER timolol 2015-09 No Notes: Memoria ophthalmic 1-27 (Same As: l 23:00: Timoptic, [place] 00 Betimol) Docusate 2015-09 No Notes: Memoria Sodium 100 1-27 (Same as: l MG Oral 23:00: Colace) [place] Capsule 00 (Do Not Crush) Brimonidine 2015-09 No Notes: David cedrick tartrate 1-27 (Same As: l 1.5 MG/ML 23:00: Alphagan) Her andujar Ophthalmic 00 Solution Betaxolol 2015-09 No 2 drp, Memori a 2.5 MG/ML 09-27 Route: l Ophthalmic 23:00: BOTH EYES, H ermann Suspension 00 BID, Drug [Betoptic form: S] SUSP, Start date: 07/28/16 17:00:00 COFOUNDER, Duration: 30 day, Stop date: 08/27/16 9:00:00 COFOUNDER timolol 2015-09 No Notes: Memoria ophthalmic 1-27 (Same As: l 23:00: Timoptic, [place] 00 Betimol) Docusate 2015-09 No Notes: Memoria Sodium 100 1-27 (Same as: l MG Oral 23:00: Colace) [place] Capsule 00 (Do Not Crush) Brimonidine 2015-09 No Notes: David cedrick tartrate 09-27 (Same As: l 1.5 MG/ML 23:00: Alphagan) Her andujar Ophthalmic 00 Solution Betaxolol 2015-09 No 2 drp, Memori a 2.5 MG/ML 09-27 Route: l Ophthalmic 23:00: BOTH EYES, H ermann Suspension 00 BID, Drug [Betoptic form: S] SUSP, Start date: 07/28/16 17:00:00 COFOUNDER, Duration: 30 day, Stop date: 08/27/16 9:00:00 COFOUNDER timolol 2015-09 No Notes: Memoria ophthalmic 09-27 (Same As: l 23:00: Timoptic, [place] 00 Betimol) Buspirone 2015-09 No Notes: Memori a 09-27 (Same As: l 21:00: BuSpar) Buspirone 2015-09 No Notes: Memori a 09-27 (Same As: l 21:00: BuSpar) Buspirone 2015-09 No Notes: Memori a - (Same As: l 21:00: BuSpar) Ipratropium 2015-09 No 500 Memori a -27 microgram, l 19:00: Route: [place] 00 NEB, QID, Dosing Weight 109.545, kg, Start date: 07/28/16 13:00:00 COFOUNDER, Duration: 30 day, Stop date: 08/27/16 9:00:00 COFOUNDER Alprazolam 2015-09 No 0.5 mg, David cedrick 09-27 Route: PO, l 19:00: TID, Dosing Weight 109.545, kg, Start date: 07/28/16 13:00:00 COFOUNDER, Duration: 30 day, Stop date: 08/27/16 9:00:00 COFOUNDER Ipratropium 2015-09 No 500 Memori a 1-27 microgram, l 19:00: Route: [place] 00 NEB, QID, Dosing Weight 109.545, kg, Start date: 07/28/16 13:00:00 COFOUNDER, Duration: 30 day, Stop date: 08/27/16 9:00:00 COFOUNDER Alprazolam 2015-09 No 0.5 mg, David cedrick 09-27 Route: PO, l 19:00: TID, [place] 00 Dosing Weight 109.545, kg, Start date: 07/28/16 13:00:00 COFOUNDER, Duration: 30 day, Stop date: 08/27/16 9:00:00 COFOUNDER Ipratropium 2015-09 No 500 Memori a 1-27 microgram, l 19:00: Route: [place] 00 NEB, QID, Dosing Weight 109.545, kg, Start date: 07/28/16 13:00:00 COFOUNDER, Duration: 30 day, Stop date: 08/27/16 9:00:00 COFOUNDER Alprazolam 2015-09 No 0.5 mg, David cedrick 09-27 Route: PO, l 19:00: TID, [place] 00 Dosing Weight 109.545, kg, Start date: 07/28/16 13:00:00 COFOUNDER, Duration: 30 day, Stop date: 08/27/16 9:00:00 COFOUNDER Thyroxine 2015-09 No Notes: Memori a 1-27 Take 1 l 17:30: hour [place] 00 before or 2 hours after meal; Enteral feeds may interefere with the absorption of this medication .(Same as:Levothr oid, Synthroid) Thyroxine 2015-09 No Notes: Memori a 1-27 Take 1 l 17:30: hour [place] 00 before or 2 hours after meal; Enteral feeds may interefere with the absorption of this medication .(Same as:Levothr oid, Synthroid) Thyroxine 2015-09 No Notes: Memori a 1-27 Take 1 l 17:30: hour [place] 00 before or 2 hours after meal; Enteral feeds may interefere with the absorption of this medication .(Same as:Levothr oid, Synthroid) multivitami 2015-09 No Notes: David cedrick n with 09-27 Give with l minerals 17:00: food. [place] 00 (Same As: Stress 600 with Zinc) WASTE: F/P - Black; E - Municipal Trash Bin omega-3 2015-09 No Notes: Memoria polyunsatur 09-27 (Same as: l ated fatty 17:00: Lovaza, Herm deepa acids 00 formally named [place]) "Do Not Crush" Lisinopril 2015-09 No Notes: Memor ia 09-27 (Same as: l 17:00: Prinivil, [place] 00 Zestril) metoprolol 2015-09 No Notes: Memor ia tartrate - (Same as: l 17:00: Lopressor) Furosemide 2015-09 No Notes: Memor ia - (Same as: l 17:00: Lasix) December cause [...] Crush" Lisinopril 2015-09 No Notes: Memor ia - (Same as: l 17:00: Prinivil, [place] 00 Zestril) metoprolol 2015-09 No Notes: Memor ia tartrate - (Same as: l 17:00: Lopressor) Furosemide 2015-09 No Notes: Memor ia - (Same as: l 17:00: Lasix) December cause [...] cedrick 09-27 (Same As: l 17:00: Effexor) [place] 00 Symbicort 2015-09 No Notes: Memori a [...] Blood Glucose Results, Start date: 07/28/16 10:01:00 COFOUNDER, Duration: 30 day, Stop date: 08/27/16 10:00:00 COFOUNDER Glucagon 2015-09 No 1 mg, Memoria 09-27 Route: IM, l 16:01: Drug form: PDR/INJ, PRN, Dosing Weight 109.545, kg, PRN Blood Glucose Results, Start date: 07/28/16 10:01:00 COFOUNDER, Duration: 30 day, Stop date: 08/27/16 10:00:00 COFOUNDER Insulin, 2015-09 No Notes: Memoria Aspart, 09-27 [...] Syringe 09-27 25 mL, l 16:01: Route: [place] 00 IVP, Drug Form: INJ, Dosing Weight 109.545, kg, PRN, PRN Blood Glucose Results, Start date: 07/28/16 10:01:00 COFOUNDER, Duration: 30 day, Stop date: 08/27/16 10:00:00 COFOUNDER Glucagon 2015-09 No 1 mg, Memoria 09-27 Route: IM, l 16:01: Drug form: [place] 00 PDR/INJ, PRN, Dosing Weight 109.545, kg, PRN Blood Glucose Results, Start date: 07/28/16 10:01:00 COFOUNDER, Duration: 30 day, Stop date: 08/27/16 10:00:00 COFOUNDER Insulin, 2015-09 No Notes: Memoria Aspart, 09-27 [...] Syringe 09-27 25 mL, l 16:01: Route: [place] 00 IVP, Drug Form: INJ, Dosing Weight 109.545, kg, PRN, PRN Blood Glucose Results, Start date: 07/28/16 10:01:00 COFOUNDER, Duration: 30 day, Stop date: 08/27/16 10:00:00 COFOUNDER Glucagon 2015-09 No 1 mg, Memoria 09-27 Route: IM, l 16:01: Drug form: [place] 00 PDR/INJ, PRN, Dosing Weight 109.545, kg, PRN Blood Glucose Results, Start date: 07/28/16 10:01:00 COFOUNDER, Duration: 30 day, Stop date: 08/27/16 10:00:00 COFOUNDER Enoxaparin 2015-09 No Notes: Memor ia - [...] 0.9% -27 (Same as: l 15:00: BD [place] 00 Posiflush) aspirin 81 2015-09 No Notes: [...] ia 1-27 (Same as: l 15:00: Pepcid) [place] 00 Alprazolam 2015-09 No Notes: Memor ia 0.5 MG Oral 1-27 With food l Tablet 14:20: or milk [place] [Xanax] 00 (Same as: Xanax) Alprazolam 2015-09 No Notes: Memor ia 0.5 MG Oral 1-27 With food l Tablet 14:20: or milk [place] [Xanax] 00 (Same as: Xanax) Alprazolam 2015-09 No Notes: Memor ia 0.5 MG Oral 1-27 With food l Tablet 14:20: or milk [place] [Xanax] 00 (Same as: Xanax) Saline 2015-09 No Notes: Memoria Flush 0.9% 1-27 (Same as: l 07:29: BD [place] 00 Posiflush) Ondansetron 2015-09 No Notes: David cedrick 1- (Same as: l 07:29: Zofran) [place] 00 MEDICATION WASTE Product Size: 4 mg Product Wasted: ___ mg Sodium 2015-09 No 1,000 mL, Memori a Chloride 1-27 Rate: 40 l 0.154 07:29: ml/hr, [place] MEQ/ML 00 Infuse Injectable over: 25 Solution hr, Route: IV, Dosing Weight 97.273 kg, Total Volume: 1,000, Start date: 07/28/16 1:29:00 COFOUNDER, Stop date: 08/27/16 1:28:00 COFOUNDER Saline 2015-09 No Notes: Memoria Flush 0.9% 1-27 (Same as: l 07:29: BD [place] 00 Posiflush) Ondansetron 2015-09 No Notes: David cedrick 1-27 (Same as: l 07:29: Zofran) [place] 00 MEDICATION WASTE Product Size: 4 mg Product Wasted: ___ mg Sodium 2015-09 No 1,000 mL, Memori a Chloride 1-27 Rate: 40 l 0.154 07:29: ml/hr, [place] MEQ/ML 00 Infuse Injectable over: 25 Solution hr, Route: IV, Dosing Weight 97.273 kg, Total Volume: 1,000, Start date: 07/28/16 1:29:00 COFOUNDER, Stop date: 08/27/16 1:28:00 COFOUNDER Saline 2015-09 No Notes: Memoria Flush 0.9% - (Same as: l 07:29: BD Posiflush) Ondansetron 2015-09 No Notes: David cedrick 09-27 (Same as: l 07:29: Zofran) MEDICATION WASTE Product Size: 4 mg Product Wasted: ___ mg Sodium 2015-09 No 1,000 mL, Memori a Chloride 09-27 Rate: 40 l 0.154 07:29: ml/hr, [place] MEQ/ML 00 Infuse Injectable over: 25 Solution hr, Route: IV, Dosing Weight 97.273 kg, Total Volume: 1,000, Start date: 07/28/16 1:29:00 COFOUNDER, Stop date: 08/27/16 1:28:00 COFOUNDER Aspirin 2015-09 No Notes: Memoria - Take with l 05:47: food. Aspirin 2015-09 No Notes: Memoria 1-27 Take with l 05:47: food. [place] 00 Aspirin 2015-09 No Notes: Memoria 1-27 Take with l 05:47: food. Sodium No 1,000 mL, Memori a Chloride 9- 1,000 l 0.154 15:49: ml/hr, [place] MEQ/ML 00 Infuse Injectable Over: 1 Solution hr, Route: IV, 1,000, Drug form: INJ, ONCE, Priority: STAT, Dosing Weight 97.727 kg, Start date: 05/30/16 10:49:00 CDT, Duration: 1 doses or times, Stop date: 05/30/16 10:49:00 CDT Sodium No 1,000 mL, Memori a Chloride 9-29 1,000 l 0.154 15:49: ml/hr, [place] MEQ/ML 00 Infuse Injectable Over: 1 Solution [...] oria 6-20 Route: PO, l 14:00: Daily, [place] 00 Dosing Weight 120, kg, Start date: 02/18/15 9:00:00, Duration: 30 day, Stop date: 03/19/15 9:00:00 pantoprazol No Notes: David cedrick e 6-20 Tablet l 14:00: should not [place] 00 be chewed or crushed. (Same as: Protonix) Fenofibrate No 200 mg, Mem oria 6-20 Route: PO, l 14:00: Daily, [place] 00 Dosing Weight 120, kg, Start date: [...] 6-20 With food l 06:01: or milk [place] 00 (Same as: Xanax) Alprazolam No Notes: Memor ia 6-20 With food l 06:01: or milk [place] 00 (Same as: Xanax) Alprazolam No Notes: Memor ia 6-20 With food l 06:01: or milk [place] 00 (Same as: Xanax) TriCor No Notes: Memoria 6-20 (Same as: l 02:00: Tricor) [place] Risperidone No Notes: David cedrick 6-20 (Same as: l 02:00: Risperdal) [place] 00 Lisinopril No Notes: Memor ia 6-20 (Same as: l 02:00: Prinivil, [place] 00 Zestril) latanoprost No Notes: David cedrick 0.05 MG/ML 6-20 Keep l Ophthalmic 02:00: refrigerat [place] Solution 00 ed. (Same as:Xalatan ) Lantus No 30 unit, Memoria 6-20 Route: l 02:00: SUB-Q, [place] 00 Bedtime, Dosing Weight 120, kg, Start date: 02/17/15 21:00:00, Duration: 30 day, Stop date: 03/18/15 21:00:00 Levemir No Notes: Memoria FlexPen 6-20 Same as l 02:00: Levemir Do 00 not hold insulin without contacting prescriber "single patient use only" Saline No Notes: [facility]oria Flush 0.9% 6-20 (Same as: l 02:00: BD [place] 00 Posiflush) Docusate No Notes: Memoria 6-20 (Same as: l 02:00: Colace) [place] 00 (Do Not Crush) TriCor No Notes: Memoria 6-20 (Same as: l 02:00: Tricor) [place] Risperidone No Notes: David cedrick 6-20 (Same as: l 02:00: Risperdal) [place] Lisinopril No Notes: Memor ia 6-20 (Same as: l 02:00: Prinivil, [place] 00 Zestril) latanoprost No Notes: David cedrick 0.05 MG/ML 6-20 Keep l Ophthalmic 02:00: refrigerat [place] Solution 00 ed. (Same as:Diane ) Lantus No 30 unit, Memoria 6-20 Route: l 02:00: SUB-Q, [place] 00 Bedtime, Dosing Weight 120, kg, Start date: 02/17/15 21:00:00, Duration: 30 day, Stop date: 03/18/15 21:00:00 Levemir No Notes: Memoria FlexPen 6-20 Same as l 02:00: Levemir Do [place] 00 not hold insulin without contacting prescriber "single patient use only" Saline No Notes: Memoria Flush 0.9% 6-20 (Same as: l 02:00: BD [place] 00 Posiflush) Docusate No Notes: Memoria 6-20 (Same as: l 02:00: Colace) [place] (Do Not Crush) TriCor No Notes: Memoria 6-20 (Same as: l 02:00: Tricor) [place] Risperidone No Notes: David cedrick 6-20 (Same as: l 02:00: Risperdal) [place] Lisinopril No Notes: Memor ia 6-20 (Same as: l 02:00: Prinivil, [place] 00 Zestril) latanoprost No Notes: David cedrick 0.05 MG/ML 6-20 Keep l Ophthalmic 02:00: refrigerat [place] Solution 00 ed. (Same as:Roblatan ) Lantus No 30 unit, Memoria 6-20 Route: l 02:00: SUB-Q, [place] 00 Bedtime, Dosing Weight 120, kg, Start date: 02/17/15 21:00:00, Duration: 30 day, Stop date: 03/18/15 21:00:00 Levemir No Notes: Memoria FlexPen 6-20 Same as l 02:00: Levemir Do [place] not hold insulin without contacting prescriber "single patient use only" Saline No Notes: Memoria Flush 0.9% 6-20 (Same as: l 02:00: BD [place] Posiflush) Docusate No Notes: Memoria 6-20 (Same as: l 02:00: Colace) [place] (Do Not Crush) normal No 1,000 mL, [...] H ermann aerosol 00 with adapter Sodium 2015-0 No 1,000 mL, Memori a Chloride 6-20 1,000 l 0.154 00:00: ml/hr, [place] MEQ/ML 00 Infuse Injectable Over: 1 Solution hr, Route: IV, ONCE, Priority: STAT, Dosing Weight 120 kg, Start date: 02/17/15 19:00:00, Duration: 1 doses or times, Stop date: 02/17/15 19:00:00 Albuterol No Notes: Memori a 0.833 MG/ML 6-20 (Same as: l / 00:00: Duoneb) [place] Ipratropium 00 [place] 0.167 MG/ML Inhalant Solution Sodium No 1,000 [...] l / 00:00: Duoneb) [place] Ipratropium 00 [place] 0.167 MG/ML Inhalant Solution Sodium No 1,000 mL, Memori a Chloride 6-20 1,000 l 0.154 00:00: ml/hr, [place] MEQ/ML 00 Infuse Injectable Over: 1 Solution hr, Route: IV, ONCE, Priority: STAT, Dosing Weight 120 kg, Start date: 02/17/15 19:00:00, Duration: 1 doses or times, Stop date: 02/17/15 19:00:00 Albuterol No Notes: Memori a 0.833 MG/ML - (Same as: l / 00:00: Duoneb) Ipratropium 00 [place] 0.167 MG/ML Inhalant Solution Lactulose No Notes: Memori a 6-19 (Same l 23:00: as:Chronul [place] ac) Lactulose No Notes: Memori a 6-19 (Same l 23:00: as:Chronul [place] ac) Lactulose No Notes: Memori a 6-19 (Same l 23:00: as:Chronul [place] ac) Enoxaparin No Notes: Memor ia 6-19 (Same as: l 22:00: Lovenox) Brimonidine No Notes: David cedrick tartrate 6-19 (Same as: l 1.5 MG/ML 22:00: Alphagan-P He rmann Ophthalmic 00 ) Solution Betaxolol No Notes: Memori a 2.5 MG/ML - (Same As: l Ophthalmic 22:00: Betoptic Her [...] as: l mg oral 22:00: Colace) capsule 00 (Do Not Crush) Enoxaparin No Notes: Memor [...] Memoria 6-19 Take with l 22:00: food. [place] 00 Vitamin C No Notes: Memori a 6-19 (Same as: l 22:00: Vitamin C) [place] 00 Amlodipine No Notes: Memor ia 6-19 (Same as: l 22:00: Norvasc) Amiodarone No Notes: Memor ia 6-19 (Same as: l 22:00: Cordarone) Alprazolam No Notes: Memor ia 6-19 With food l 22:00: or milk [place] (Same as: Xanax) venlafaxine No Notes: David cedrick 6-19 (Same As: l 22:00: Effexor) [place] 00 Januvia No Notes: Memoria 6-19 (Same as: l 22:00: Januvia) [place] docusate No Notes: Memoria sodium 100 6-19 (Same as: l mg oral 22:00: Colace) [place] capsule (Do Not Crush) dexmedetomi No Notes: [...] 6-19 (Same as: l Sodium 21:37: K [place] Chloride 00 Phosphate. 0.9% IV 250 ) [...] as: l 21:37: Mag-Ox 400) Magnesium oxide [id number] g elemental magnesium Dose=____m g magnesium oxide [...] Rate: 125 l Sodium 21:37: ml/hr, Chloride 00 Infuse 0.0769 over: 8 MEQ/ML hr, Route: Injectable IV, Dosing Solution Weight 120 kg, Total Volume: 1,000, Start date: 02/17/15 16:37:00, Duration: 30 day, Stop date: 03/19/15 16:36:00 Albuterol No Notes: Memori a 0.833 MG/ML 02-17 (Same as: l / 21:37: Duoneb) Ipratropium 00 [place] 0.167 MG/ML Inhalant Solution Bisacodyl No Notes: Memori a -19 (Same As: l 21:37: Dulcolax, Bisco-Lax) Acetaminoph No Notes: Do M emoria en 02-17 not exceed l 21:37: 4 gm/day. (Same as: Tylenol) potassium No Notes: Memori a phosphate + 6-19 (Same as: l Sodium 21:37: K [place] Chloride 00 Phosphate. 0.9% IV 250 ) 1 mMol mL phoshate has 1.47 mEq potassium Infuse over 4 hours sodium No Special [facility] phosphate + 6-19 Instructio l Sodium 21:37: ns: FOR [place] Chloride 00 ICU USE 0.9% IV 250 ONLY mL potassium No Notes: Memori a phosphate + 6-19 (Same as: l Sodium 21:37: K [place] Chloride 00 Phosphate. 0.9% IV 250 ) 1 mMol mL phoshate has 1.47 mEq potassium Infuse over 4 hours sodium No Special [facility] phosphate + 6-19 Instructio l Sodium 21:37: ns: FOR [place] Chloride 00 ICU USE 0.9% IV 250 ONLY mL potassium No Notes: Memori a chloride -19 (Same as: l 21:37: Potassium [place] 00 Chloride) Calcium No Notes: [facility] Carbonate - (Same As: l 500 MG 21:37: Tums) [place] Chewable 00 Calcium Tablet Carbonate 500 mg = 200 mg elemental calcium Dose = mg calcium carbonate ( mg elemental calcium) Magnesium No Notes: Memori a Oxide - (Same as: l 21:37: Mag-Ox [place] 00 400) Magnesium oxide 281px=553n g elemental magnesium Dose=____m g magnesium oxide (___mg elemental magnesium) Calcium No Special [facility] Gluconate 02-17 Instructio l 21:37: ns: FOR [place] ICU USE ONLY Neutra-Phos No Notes: David cedrick - (Same as: l 21:37: Neutra-Bhupinder [place] 00 s) Each 1.25 gm pkt has 250mg phosphorou s. Mix w/2.5oz water and stir. Magnesium No Special Memor ia Sulfate 02-17 Instructio l 21:37: ns: FOR [place] 00 ICU USE ONLY Saline No Notes: [facility] Flush 0.9% 02-17 (Same as: l 21:37: BD [place] 00 Posiflush) Glucose 50 No 1,000 mL, Me moria MG/ML / 02-17 Rate: 125 l Sodium 21:37: ml/hr, [place] Chloride 00 Infuse 0.0769 over: 8 MEQ/ML hr, Route: Injectable IV, Dosing Solution Weight 120 kg, Total Volume: 1,000, Start date: 02/17/15 16:37:00, Duration: 30 day, Stop date: 03/19/15 16:36:00 potassium No Notes: Memori a chloride 02-17 (Same as: l 21:37: Potassium Chloride) Albuterol No Notes: Memori a 0.833 MG/ML 02-17 (Same as: l / 21:37: Duoneb) [place] Ipratropium 00 [place] 0.167 MG/ML Inhalant Solution Bisacodyl No Notes: Memori a 02-17 (Same As: l 21:37: Dulcolax, [place] 00 Bisco-Lax) Acetaminoph No Notes: Do M emoria en 02-17 not exceed l 21:37: 4 gm/day. [place] 00 (Same as: Tylenol) Calcium No Notes: [facility] Carbonate 02-17 (Same As: l 500 MG 21:37: Tums) [place] Chewable 00 Calcium Tablet Carbonate 500 mg = 200 mg elemental calcium Dose = mg calcium carbonate ( mg elemental calcium) Magnesium No Notes: Memori a Oxide 02-17 (Same as: l 21:37: Mag-Ox 400) Magnesium oxide [id number] g elemental magnesium Dose=____m g magnesium oxide [...] ns: FOR [place] 00 ICU USE ONLY Saline No Notes: [facility] Flush 0.9% 02-17 (Same as: l 21:37: BD [place] 00 Posiflush) Glucose 50 No 1,000 mL, Me moria MG/ML / 6-19 Rate: 125 l Sodium 21:37: ml/hr, [place] Chloride 00 Infuse 0.0769 over: 8 MEQ/ML hr, Route: Injectable IV, Dosing Solution Weight 120 kg, Total Volume: 1,000, Start date: 02/17/15 16:37:00, Duration: 30 day, Stop date: 03/19/15 16:36:00 Albuterol No Notes: Memori a 0.833 MG/ML - (Same as: l / 21:37: Duoneb) [place] Ipratropium 00 [place] 0.167 MG/ML Inhalant Solution Bisacodyl No Notes: Memori a 6-19 (Same As: l 21:37: Dulcolax, [place] 00 Bisco-Lax) Acetaminoph No Notes: Do M emoria en -19 not exceed l 21:37: 4 gm/day. [place] 00 (Same as: Tylenol) NovoLOG No Notes: [...] Memori a 6-19 Route: l 21:30: SUB-Q, [place] 00 TID-Before Meals, Dosing Weight 120, kg, [...] Memori a 6-19 Route: l 21:30: SUB-Q, [place] 00 TID-Before Meals, Dosing Weight 120, kg, Start date: 02/17/15 16:30:00, Duration: 30 day, Stop date: 03/19/15 11:30:00 metoprolol No Notes: Memor ia tartrate -19 [...] 3%) Sodium No Notes: [facility] Chloride 3% - "Administe [...] 3%) Sodium No Notes: [facility] Chloride 3% - "Administe [...] 6-19 100 mL, l 16:07: Route: IV, [place] 00 Drug form: INJ, ONCE, Dosing Weight [...] Memoria 6-19 Route: l 16:06: IVP, Drug [place] 00 form: INJ, ONCE, Dosing Weight 127.273, kg, Priority: STAT, Start date: 02/17/15 11:06:00, Stop date: 02/17/15 11:06:00 Ativan 2014-0 No 1 mg, [facility] 6-19 Route: l 16:06: IVP, Drug [place] 00 form: INJ, ONCE, Dosing Weight 127.273, [...] tab, PO, l tablet 15:48: Daily, 0 [place] 00 Refill(s) latanoprost Yes 1 drp, David cedrick 0.05 MG/ML 6-19 BOTH EYES, l Ophthalmic 15:48: Bedtime, 0 H ermann Solution 00 Refill(s) Vitamin C Yes 1,000 mg = Me moria 500 mg oral 6-19 2 tab, PO, l tablet 15:48: Daily, 0 [place] 00 Refill(s) latanoprost Yes 1 drp, David [...] a 6-19 microgram, l 15:45: NEB, QID, [place] 00 0 Refill(s) Humalog 2014-0 Yes 10 unit, Memori a 6-19 SUB-Q, l 15:44: TID-Before [place] 00 Meals, 0 Refill(s) Lantus 2014-0 Yes 30 unit, [facility] 6-19 SUB-Q, l 15:44: Bedtime, 0 [place] 00 Refill(s) Humalog 2014-0 Yes 10 unit, Memori a 6-19 SUB-Q, l 15:44: TID-Before [place] 00 Meals, 0 Refill(s) Lantus 2014-0 Yes 30 unit, [place] 6-19 SUB-Q, l 15:44: Bedtime, 0 [place] 00 Refill(s) Humalog Yes 10 unit, Memori a 6-19 SUB-Q, l 15:44: TID-Before Meals, 0 Refill(s) Lantus Yes 30 unit, [facility] 6-19 SUB-Q, l 15:44: Bedtime, 0 Refill(s) busPIRone 5 Yes 5 mg = 1 Me moria mg oral 6-19 tab, PO, l tablet 15:43: TID, 0 Refill(s) busPIRone 5 Yes 5 mg = 1 Me moria mg oral 6-19 tab, PO, l tablet 15:43: TID, 0 [place] 00 Refill(s) busPIRone 5 Yes 5 mg = 1 Me moria mg oral 6-19 tab, PO, l tablet 15:43: TID, 0 [place] 00 Refill(s) venlafaxine Yes 75 mg = 1 M emoria 75 mg oral 6-19 tab, PO, l tablet 15:42: Daily, 0 Refill(s) venlafaxine Yes 75 mg = 1 M emoria 75 mg oral 6-19 tab, PO, l tablet 15:42: Daily, 0 Refill(s) venlafaxine Yes 75 mg = 1 M emoria 75 mg oral 6-19 tab, PO, l tablet 15:42: Daily, 0 Refill(s) Alprazolam No 1 mg, PO, Me moria 6-19 Bedtime, 0 l 15:40: Refill(s) Alprazolam No 1 mg, PO, Me moria 6-19 Bedtime, 0 l 15:40: Refill(s) Alprazolam No 1 mg, PO, Me moria 6-19 Bedtime, 0 l 15:40: Refill(s) docusate Yes 200 mg = 2 Mem oria sodium 100 6-19 cap, PO, l mg oral 15:34: BID, 0 [place] Refill(s) docusate Yes 200 mg = 2 Mem o[place] sodium 100 6-19 cap, PO, l mg oral 15:34: BID, 0 [place] capsule 00 Refill(s) docusate Yes 200 mg = 2 Mem oria sodium 100 6-19 cap, PO, l mg oral 15:34: BID, 0 [place] capsule 00 Refill(s) Saline No Notes: [facility] Flush 0.9% 6-19 (Same as: l 14:43: BD [place] 00 Posiflush) Saline No Notes: [facility] Flush 0.9% 6-19 (Same as: l 14:43: BD [place] 00 Posiflush) Saline No Notes: [facility] Flush 0.9% 6-19 (Same as: l 14:43: BD [place] 00 Posiflush) Naloxone No Notes: [facility] 6-19 Same as l 14:41: Narcan [place] 00 Naloxone No Notes: [facility] 6-19 Same as l 14:41: Narcan [place] 00 Naloxone No Notes: [facility] 6-19 Same as l 14:41: Narcan [place] 00 Albuterol 2013-09 Yes 3 ml, [place] 0.833 MG/ML 0-11 INHALATION l / 17:55: , QID, # [place] Ipratropium 00 60 ea, 0 [place] Refill(s) 0.167 MG/ML Inhalant Solution [DuoNeb] {2013-09 Yes Special [facility]oria (Methylpred 0-11 Instructio l nisolone 4 17:55: ns: Take Her andujar MG Oral 00 with or Tablet without [Medrol]) } food Pack [Medrol Dosepak] Doxycycline 2013-09 Yes 100 mg = 1 [place] 100 MG Oral 0-11 cap, PO, l Capsule 17:55: [id number], # Herm deepa 00 14 cap, 0 Refill(s) Albuterol 2013-09 Yes 3 ml, [place] 0.833 MG/ML 0-11 INHALATION l / 17:55: , QID, # [place] Ipratropium 00 60 ea, 0 [place] Refill(s) 0.167 MG/ML Inhalant Solution [DuoNeb] {2013-09 Yes Special [facility] (Methylpred 0-11 Instructio l nisolone 4 17:55: ns: Take Her andujar MG Oral 00 with or Tablet without [Medrol]) } food Pack [Medrol Dosepak] Doxycycline 2013-09 Yes 100 mg = 1 [place] 100 MG Oral 0-11 cap, PO, l Capsule 17:55: [id number], # Herm deepa 00 14 cap, 0 Refill(s) Albuterol 2013-09 Yes 3 ml, [place] 0.833 MG/ML 0-11 INHALATION l / 17:55: , QID, # [place] Ipratropium 00 60 ea, 0 [place] Refill(s) 0.167 MG/ML Inhalant Solution [DuoNeb] {2013-09 Yes Special [facility] (Methylpred 0-11 Instructio l nisolone 4 17:55: ns: Take Her andujar MG Oral 00 with or Tablet without [Medrol]) } food Pack [Medrol Dosepak] Doxycycline 2013-09 Yes 100 mg = 1 [place] 100 MG Oral 0-11 cap, PO, l Capsule 17:55: [id number], # Herm deepa 00 14 cap, 0 [...] n 0-10 Same as: l 04:00: Zithromax Azithromyci 2013-09 No Notes: David cedrick n 0-10 Same as: l 04:00: Zithromax [place] 00 Azithromyci 2013-09 No Notes: David cedrick n 0-10 Same as: l 04:00: Zithromax [place] 00 Fenofibrate 2013-09 No Notes: David cedrick 0-10 (Same as: l 02:00: Tricor) [place] Fenofibrate 2013-09 No Notes: David cedrick 0-10 (Same as: l 02:00: Tricor) [place] Fenofibrate 2013-09 No Notes: David cedrick 0-10 (Same as: l 02:00: Tricor) [place] Effexor XR 2013-09 No Notes: Do Me [...] 14:00: Fluzone Rudy n Inactivated 00 Quadrivale A-[place]- nt) (H3N2)-like virus (A-[place]- [facility] [place] X-175C) strain / Influenza Virus Vaccine, Inactivated A-[place]- 59-2006, IVR-148 (H1N1) strain / Influenza Virus Vaccine, Inactivated , B-- -2005-lik Furosemide 2013-09 No Notes: Memor ia 0-09 (Same as: l 14:00: Lasix) May [place] 00 cause GI upset. Give with food or milk. Docusate 2013-09 No Notes: [place] 0-09 (Same as: l 14:00: Colace) [place] 00 (Do Not Crush) Vitamin D3 2013-09 No Notes: Memor ia 0-09 Same as l 14:00: Vitamin D3 [place] 00 aspirin 2013-09 No Notes: [facility] 0-09 Take with l 14:00: food. [place] 00 Amlodipine 2013-09 No Notes: Memor ia [...] Plus 0-09 Give with l 14:00: food. [place] 00 (Same As: Stress 600 with Zinc) Influenza 2013-09 No Notes: Memori a Virus 0-09 (Same as: l Vaccine, 14:00: Fluzone Rudy n Inactivated 00 Quadrivale A-[place]- nt) (H3N2)-like virus (A-[place]- 6-2006 [facility] X-175C) strain / Influenza Virus Vaccine, Inactivated A-[place]- 59-2006, IVR-148 (H1N1) strain / Influenza Virus Vaccine, Inactivated , B-[place]- -2005-lik Furosemide 2013-09 No Notes: Memor ia 0-09 (Same as: l 14:00: Lasix) May [place] 00 cause GI upset. Give with food or milk. Docusate 2013-09 No Notes: [facility]oria 0-09 (Same as: l 14:00: Colace) [place] 00 (Do Not Crush) Vitamin D3 2013-09 No Notes: Memor ia 0-09 Same as l 14:00: Vitamin D3 [place] 00 aspirin 2013-09 No Notes: [facility]oria 0-09 Take with l 14:00: food. [place] 00 Amlodipine 2013-09 No Notes: Memor ia 0-09 (Same as: l 14:00: Norvasc) [place] 00 Amiodarone 2013-09 No Notes: Memor ia 0-09 (Same as: l 14:00: Cordarone) [place] 00 Alprazolam 2013-09 No Notes: Memor ia 0-09 With food l 14:00: or milk [place] 00 (Same as: Xanax) Effexor XR 2013-09 No Notes: Do Me moria 0-09 not open, l 14:00: crush, or [place] 00 chew. (Same As: Effexor XR) One-A-Day 2013-09 No Notes: Memori a Men 50 Plus 0-09 Give with l 14:00: food. [place] (Same As: Stress 600 with Zinc) Influenza 2013-09 No Notes: Memori a Virus 0-09 (Same as: l Vaccine, 14:00: Fluzone Rudy n Inactivated 00 Quadrivale A-[place]- nt) (H3N2)-like virus (A-[place]- [address] [facility] [place] X-175C) strain / Influenza Virus Vaccine, Inactivated A-[place]- , IVR-148 (H1N1) strain / Influenza Virus Vaccine, Inactivated , B-[place]- -2005-lik Furosemide 2013-09 No Notes: Memor ia 0-09 (Same as: l 14:00: Lasix) May [place] 00 cause GI upset. Give with food or milk. Docusate 2013-09 No Notes: Memoria 0-09 (Same as: l 14:00: Colace) [place] 00 (Do Not Crush) Vitamin D3 2013-09 No Notes: Memor ia 0-09 Same as l 14:00: Vitamin D3 [place] aspirin 2013-09 No Notes: [facility]oria 0-09 Take with l 14:00: food. [place] 00 Amlodipine 2013-09 No Notes: Memor ia 0-09 (Same as: l 14:00: Norvasc) Amiodarone 2013-09 No Notes: Memor ia 0-09 (Same as: l 14:00: Cordarone) [place] 00 Alprazolam 2013-09 No Notes: Memor ia 0-09 With food l 14:00: or milk [place] (Same as: Xanax) Enoxaparin 2013-09 No Notes: Memor ia 0-09 (Same as: l 13:00: Lovenox) [place] 00 Enoxaparin 2013-09 No Notes: Memor ia 0-09 (Same as: l 13:00: Lovenox) [place] 00 Enoxaparin 2013-09 No Notes: Memor ia 0-09 (Same as: l 13:00: Lovenox) [place] Thyroxine 2013-09 No Notes: Memori a 0-09 Take 1 l 11:30: hour [place] 00 before or 2 hours after meal; Enteral feeds may interefere with the absorption of this medication . (Same as:Levothr oid) Thyroxine 2013-09 No Notes: Memori a 0-09 Take 1 l 11:30: hour [place] 00 before or 2 hours after meal; Enteral feeds may interefere with the absorption of this medication . (Same as:Levothr oid) Thyroxine 2013-09 No Notes: Memori a 0-09 Take 1 l 11:30: hour [place] 00 before or 2 hours after meal; Enteral feeds may interefere with the absorption of this medication . (Same as:Levothr oid) Albuterol 2013-09 No Notes: Memori a 0.833 MG/ML 0-09 (Same as: l / 08:00: Duoneb) [place] Ipratropium 00 [place] 0.167 MG/ML Inhalant Solution Albuterol 2013-09 No Notes: Memori a 0.833 MG/ML 0-09 (Same as: l 08:00: Duoneb) [place] Ipratropium 00 [place] 0.167 MG/ML Inhalant Solution Albuterol 2013-09 No Notes: Memori a 0.833 MG/ML 0-09 (Same as: l / 08:00: Duoneb) [place] Ipratropium 00 [place] 0.167 MG/ML Inhalant Solution methylPREDN 2013-09 No Notes: David cedrick ISolone 0-09 (Same l SODium 05:00: as:Solu-ME Padmini nn SUCCinate 00 DROL, A-Methapre d) Doxycycline 2013-09 No Notes: NO M emoria 0-09 MILK/ANTAC l 05:00: IDS/IRON [place] 00 Take 1 hour before or 2 hours after dairy products methylPREDN 2013-09 No Notes: David cedrick ISolone 0-09 (Same l SODium 05:00: as:Solu-ME Padmini nn SUCCinate 00 DROL, A-Methapre d) Doxycycline 2013-09 No Notes: NO M emoria 0-09 MILK/ANTAC l 05:00: IDS/IRON [place] 00 Take 1 hour before or 2 [...] 0-09 Same as l 04:45: Levemir [place] "single patient use only" Levemir 2013-09 No Notes: Memoria 0-09 Same as l 04:45: Levemir [place] 00 "single patient use only" Levemir 2013-09 No Notes: [facility]oria 0-09 Same as l 04:45: Levemir [place] 00 "single patient use only" Trazodone 2013-09 No Notes: Memori a 0-09 (Same As: l 04:38: Desyrel) Risperidone 2013-09 No Notes: David cedrick 0-09 (Same as: l 04:38: Risperdal) Trazodone 2013-09 No Notes: Memori a 0-09 (Same As: l 04:38: Desyrel) [place] 00 Risperidone 2013-09 No Notes: David cedrick 0-09 (Same as: l 04:38: Risperdal) Trazodone 2013-09 No Notes: Memori a 0-09 (Same As: l 04:38: Desyrel) [place] 00 Risperidone 2013-09 No Notes: David cedrick 0-09 (Same as: l 04:38: Risperdal) metoprolol 2013-09 No Notes: Memor ia tartrate 0-09 (Same as: l 04:37: Lopressor) [place] 00 Lisinopril 2013-09 No Notes: Memor ia 0-09 (Same as: l 04:37: Prinivil, [place] Zestril) metoprolol 2013-09 No Notes: Memor ia tartrate 0-09 (Same as: l 04:37: Lopressor) Lisinopril 2013-09 No Notes: Memor ia 0-09 (Same as: l 04:37: Prinivil, [place] Zestril) metoprolol 2013-09 No Notes: Memor ia tartrate 0-09 (Same as: l 04:37: Lopressor) [place] 00 Lisinopril 2013-09 No Notes: Memor ia 0-09 (Same as: l 04:37: Prinivil, [place] 00 Zestril) Alprazolam 2013-09 No Notes: Memor ia 0-09 With food l 04:35: or milk [place] 00 (Same as: Xanax) Alprazolam 2013-09 No Notes: Memor ia 0-09 With food l 04:35: or milk [place] 00 (Same as: Xanax) Alprazolam 2013-09 No Notes: Memor ia 0-09 With food l 04:35: or milk [place] 00 (Same as: Xanax) Insulin, 2013-09 No Notes: Memoria Aspart, 0-09 Roll in l Human 04:33: palms of [place] 00 hands gently; Do not shake vigorously . (Same as: NovoLOG) "single patient use only" Stable for 28 days at room temperatur e. Expires in days from ____Date Glucagon 2013-09 No 1 mg, Memoria 0-09 Route: IM, l 04:33: Drug form: [place] 00 PDR/INJ, PRN, Dosing Weight 110.966, kg, [...] 0-09 mL, Route: l 04:33: IVP, Drug [place] 00 Form: INJ, Dosing Weight 110.966, kg, PRN, PRN Blood Glucose Results, Start date: 06/08/14 23:33:00, Duration: 30 day, Stop date: 07/08/14 22:32:00 Insulin, 2013-09 No Notes: [facility]oria Aspart, 0-09 Roll in l Human 04:33: palms of [place] 00 hands gently; Do not shake vigorously [...] Memoria 0-09 (Same As: l 04:31: Lioresal) [place] Baclofen 2013-09 No Notes: [facility]oria 0-09 (Same As: l 04:31: Lioresal) [place] Baclofen 2013-09 No Notes: [facility] 0-09 (Same As: l 04:31: Lioresal) [place] Albuterol 2013-09 No Notes: SEE Me moria [...] Home 0-09 Instructio l Medication 04:18: ns: [place] Unknown eye drops; filled at [facility] in [place] aspirin 2013-09 Yes 81 mg, PO, David cedrick 0-09 Daily l 04:18: [place] 00 Vitamin D3 2013-09 Yes 200 Memoria 0-09 IntlUnit, l 04:18: PO, Daily [place] Non-Formula 2013-09 Yes Special Mem oria ry Home 0-09 Instructio l Medication 04:18: ns: [place] Unknown eye drops; filled at [facility] in [place] aspirin 2013-09 Yes 81 mg, PO, David cedrick 0-09 Daily l 04:18: [place] 00 Vitamin D3 2013-09 Yes 200 Memoria 0-09 IntlUnit, l 04:18: PO, Daily [place] Non-Formula 2013-09 Yes Special Mem oria ry Home 0-09 Instructio l Medication 04:18: ns: [place] Unknown eye drops; filled at [facility] in [place] aspirin 2013-09 Yes 81 mg, PO, David cedrick 0-09 Daily l 04:18: [place] Vitamin D3 2013-09 Yes 200 Memoria 0-09 IntlUnit, l 04:18: PO, Daily [place] -A-Day 2013-09 Yes 1 tab, PO, Me moria Men 50 Plus 0-09 Daily l 04:17: [place] -ADay 2013-09 Yes 1 tab, PO, Me moria Men 50 Plus 0-09 Daily l 04:17: [place] -A2013-09 Yes 1 tab, PO, Me moria Men [...] PO, M emoria 0-09 Daily l 04:09: [place] Zithromax 2013-09 No Notes: Memori a 0-09 Same as: l 03:09: Zithromax [place] 00 Zithromax 2013-09 No Notes: Memori a 0-09 Same as: l 03:09: Zithromax [place] 00 Zithromax 2013-09 No Notes: Memori a 0-09 Same as: l 03:09: Zithromax [place] 00 Albuterol 2013-09 No Notes: Memori a 0.833 MG/ML 0-09 (Same as: :00: Duoneb) Ipratropium 00 [place] 0.167 MG/ML Inhalant Solution [DuoNeb] Albuterol 2013-09 No Notes: Memori a 0.833 MG/ML 0-09 (Same as: l :00: Duoneb) Ipratropium 00 [place] 0.167 MG/ML Inhalant Solution [DuoNeb] Albuterol 2013-09 No Notes: Memori a 0.833 MG/ML 0-09 (Same as: l 01:00: Duoneb) Ipratropium 00 [place] 0.167 MG/ML Inhalant Solution [DuoNeb] Saline 2013-09 No Notes: [facility] Flush 0.9% 0-09 (Same as: l 00:26: BD [place] Posiflush) Saline 2013-09 No Notes: [facility] Flush 0.9% 0-09 (Same as: l 00:26: BD [place] Posiflush) Saline 2013-09 No Notes: [facility] Flush 0.9% 0-09 (Same as: l 00:26: BD [place] Posiflush) traZODONE 2012-09 Yes 50mg Take 50 mg [...] ity of XR) 150 mg 09:36: mouth [place] 24 hr 18 daily with Medical capsule breakfast. Branch brimonidine 2012-09 Yes 1[drp] Place 1 U nivers (ALPHAGAN) 1-22 Drop in ity of 0.2 % 09:36: both eyes [place] ophthalmic 2 (two) Medica l solution times [place] daily. lisinopril 2012-09 Yes 20mg Take 20 mg U nivers (PRINIVIL,Z 1-22 by mouth ity of ESTRIL) 20 09:36: daily. [place] mg tablet 18 Medical Branch SENNOSIDES 2012-09 Yes Take by [facility] ers (SENOKOT 1-22 mouth. ity of ORAL) 09:36: Indication [place] [address] s: take 2 Medical tabs by Branch mouth at bedtime amLODIPine 2012-09 Yes 10mg Take 10 mg U nivers (NORVASC) -22 by mouth ity of 10 mg 09:36: daily. [address] Branch latanoprost 2012-09 Yes 1[drp] 1 Drop Un jewels (XALATAN) -22 every ity of 0.005 % 09:36: evening. [place] ophthalmic Medical drops Branch risperidone 2012-09 Yes 4mg Take 4 mg U nivers (RISPERDAL) -22 by mouth ity of 3 mg tablet 09:36: at [place] [address] bedtime. Medical Branch acetaminoph 2012-09 Yes Take by Uni vers en (MAPAP) 1-22 mouth ity of 325 mg 09:36: every 4 [place] tablet 18 (four) Medical hours as Branch needed. ALPRAZolam 2012-09 Yes .5mg Take 0.5 Uni vers (XANAX) 0.5 1-22 mg by ity of mg tablet 09:36: mouth 2 [place] 18 (two) Medical times Branch daily. Also takes one at bedtime multivitami 2012-09 Yes 1{tbl} Take 1 Tab Univers n (TAB A 1-22 by mouth ity of THIAGO) 09:36: daily. [place] tablet Medical Branch traZODONE 2012-09 Yes 50mg Take 50 mg Un jewels (DESYREL) -22 by mouth ity of 50 mg 09:36: at [place] tablet 18 bedtime. Medical Branch magnesium 2012-09 Yes 30mL Take 30 mL Un jewels hydroxide -22 by mouth ity of (MILK OF 09:36: daily. [place] MAGNESIA) 18 Medical 400 mg/5 mL Branch suspension insulin 2012-09 Yes 13U inject 13 [facility] glargine 1-22 Units ity of (LANTUS) 09:36: [facility] 100 unit/mL 18 skin at Medic al injection bedtime. Branch venlafaxine 2012-09 Yes 150mg Take 150 U nivers XR (EFFEXOR 1-22 mg by ity of XR) 150 mg 09:36: mouth [place] 24 hr 18 daily with Medical capsule breakfast. Branch brimonidine 2012-09 Yes 1[drp] Place 1 U nivers (ALPHAGAN) -22 Drop in ity of 0.2 % 09:36: both eyes [place] ophthalmic 2 (two) Medica l solution times Branch daily. lisinopril 2012-09 Yes 20mg Take 20 mg U nivers (PRINIVIL,Z 22 by mouth ity of ESTRIL) 20 09:36: daily. [place] mg tablet 18 Medical Branch SENNOSIDES 2012-09 Yes Take by [facility] ers (SENOKOT 1-22 mouth. ity of ORAL) 09:36: Indication [place] 18 s: take 2 Medical tabs by Branch mouth at bedtime amLODIPine 2012-09 Yes 10mg Take 10 mg U nivers (NORVASC) 22 by mouth ity of 10 mg 09:36: daily. [place] tablet 18 Medical Branch latanoprost 2012-09 Yes 1[drp] 1 Drop Un jewels (XALATAN) -22 every ity of 0.005 % 09:36: evening. [place] ophthalmic 18 Medical drops Branch risperidone 2012-09 Yes 4mg Take 4 mg U nivers (RISPERDAL) -22 by mouth ity of 3 mg tablet 09:36: at [place] 18 bedtime. Medical Branch acetaminoph 2012-09 Yes Take by Uni vers en (MAPAP) 1-22 mouth ity of 325 mg 09:36: every 4 [place] tablet 18 (four) Medical hours as Branch needed. ALPRAZolam 2012-09 Yes .5mg Take 0.5 Uni vers (XANAX) 0.5 1-22 mg by ity of mg tablet 09:36: mouth 2 [place] 18 (two) Medical times Branch daily. Also takes one at bedtime multivitami 2012-09 Yes 1{tbl} Take 1 Tab Univers n (TAB A 1-22 by mouth ity of THIAGO) 09:36: daily. [place] tablet 18 Medical Branch traZODONE 2012-09 Yes 50mg Take 50 mg Un jewels (DESYREL) 1-22 by mouth ity of 50 mg 09:36: at [place] tablet 18 bedtime. Medical Branch magnesium 2012-09 Yes 30mL Take 30 mL Un jewels hydroxide 1-22 by mouth ity of (MILK OF 09:36: daily. [place] MAGNESIA) Medical 400 mg/5 mL [place] suspension insulin 2012-09 Yes 13U inject [address] [facility] [place] rs glargine 1-22 Units ity of (LANTUS) 09:36: under the [facility] s 100 unit/mL 18 skin at Medic al injection bedtime. Branch venlafaxine 2012-09 Yes 150mg Take 150 U nivers XR (EFFEXOR 1-22 mg by ity of XR) 150 mg 09:36: mouth [place] 24 hr 18 daily with Medical capsule breakfast. Branch brimonidine 2012-09 Yes 1[drp] Place 1 U nivers (ALPHAGAN) 1-22 Drop in ity of 0.2 % 09:36: both eyes [place] ophthalmic 2 (two) Medica l solution times [place] daily. lisinopril 2012-09 Yes 20mg Take 20 mg U nivers (PRINIVIL,Z 1-22 by mouth ity of ESTRIL) 20 09:36: daily. [place] mg tablet 18 Medical Branch SENNOSIDES 2012-09 Yes Take by [facility] ers (SENOKOT 1-22 mouth. ity of ORAL) 09:36: Indication [place] 18 s: take 2 Medical tabs by Branch mouth at bedtime amLODIPine 2012-09 Yes 10mg Take 10 mg U nivers (NORVASC) 1-22 by mouth ity of 10 mg 09:36: daily. [place] tablet 18 Medical Branch latanoprost 2012-09 Yes 1[drp] 1 Drop Un jewels (XALATAN) 1-22 every ity of 0.005 % 09:36: evening. [place] ophthalmic 18 Medical drops Branch risperidone 2012-09 [...] by mouth ity of THIAGO) 09:36: daily. [place] tablet 18 Medical Branch traZODONE 2012-09 Yes 50mg Take 50 mg Un jewels (DESYREL) -22 by mouth ity of 50 mg 09:36: at [place] tablet 18 bedtime. Medical Branch magnesium 2012-09 Yes 30mL Take 30 mL Un jewels hydroxide -22 by mouth ity of (MILK OF 09:36: daily. [place] MAGNESIA) Medical 400 mg/5 mL Branch suspension insulin 2012-09 Yes 13U inject 13 Unive rs glargine 1-22 Units ity of (LANTUS) 09:36: under the [facility] s 100 unit/mL 18 skin at Medic al injection bedtime. Branch venlafaxine 2012-09 Yes 150mg Take 150 U nivers XR (EFFEXOR 1-22 mg by ity of XR) 150 mg 09:36: mouth [place] 24 hr 18 daily with Medical capsule breakfast. Branch brimonidine 2012-09 Yes 1[drp] Place 1 U nivers (ALPHAGAN) 1-22 Drop in ity of 0.2 % 09:36: both eyes [place] ophthalmic 18 2 (two) Medica l solution times Branch daily. lisinopril 2012-09 Yes 20mg Take 20 mg U nivers (PRINIVIL,Z 1-22 by mouth ity of ESTRIL) 20 09:36: daily. [place] mg tablet 18 Medical Branch SENNOSIDES 2012-09 Yes Take by Univ ers (SENOKOT 1-22 mouth. ity of ORAL) 09:36: Indication [place] [address] s: take 2 Medical tabs by Branch mouth at bedtime amLODIPine 2012-09 Yes 10mg Take 10 mg [facility] (NORVASC) -22 by mouth ity of 10 mg 09:36: daily. [place] tablet 18 Medical [facility] latanoprost 2012-09 Yes 1[drp] 1 Drop [facility] (XALATAN) 22 every ity of 0.005 % 09:36: evening. [place] [facility] drops Branch risperidone 2012-09 Yes 4mg Take 4 mg [facility] n[facility] (RISPERDAL) 09-22 by mouth ity of 3 mg tablet 09:36: at [place] [address] bedtime. Medical Branch acetaminoph 2012-09 Yes Take by Uni vers en (MAPAP) 22 mouth ity of 325 mg 09:36: every 4 [place] tablet 18 (four) Medical hours as Branch needed. ALPRAZolam 2012-09 Yes .5mg Take 0.5 Uni vers (XANAX) 0.5 1-22 mg by ity of mg tablet 09:36: mouth 2 [place] [address] (two) Medical times Branch daily. Also takes one at bedtime multivitami 2012-09 Yes 1{tbl} Take 1 Tab [facility] n (TAB A 1-22 by mouth ity of THIAGO) 09:36: daily. [place] tablet 18 Medical [facility] Levothyroxi 2012-09 Yes Take by Uni vers ne 1-22 mouth ity of (TIROSINT) 09:36: daily. [place] 25 mcg Cap Medical Branch amiodarone 2012-09 Yes 200mg Take 200 [facility] (CORDARONE) 1-22 mg by ity of 200 mg 09:36: mouth [place] tablet 17 daily. Medical Branch Levothyroxi 2012-09 Yes Take by Uni vers ne 1-22 mouth ity of (TIROSINT) 09:36: daily. [place] 25 mcg Cap 17 Medical Branch amiodarone 2012-09 Yes 200mg Take 200 Un jewels (CORDARONE) 1-22 mg by ity of 200 mg 09:36: mouth [place] tablet 17 daily. Medical Branch Levothyroxi 2012-09 Yes Take by Uni vers ne 1-22 mouth ity of (TIROSINT) 09:36: daily. [place] 25 mcg Cap 17 Medical Branch amiodarone 2012-09 Yes 200mg Take 200 Un jewels (CORDARONE) 1-22 mg by ity of 200 mg 09:36: mouth [place] tablet 17 daily. Medical Branch Levothyroxi 2012-09 Yes Take by Uni vers ne 1-22 mouth ity of (TIROSINT) 09:36: daily. [place] 25 mcg Cap 17 Medical Branch amiodarone [...] 7-19 ity of mg tablet 00:00: [place] Medical [...] of injection 00:00: Medical Branch HUMALOG 100 0 Yes Univer s unit/mL 7-02 ity of injection 00:00: Medical Branch HUMALOG 100 0 Yes Univer s unit/mL 7-02 ity of injection 00:00: Medical Branch HUMALOG 100 0 Yes Univer s unit/mL 7-02 ity of [...] by mouth 2 ity of 00:00: (two) [place] 00 times Medical daily. Branch EC ASPIRIN Yes 81mg Take 81 mg U nivers ORAL 4-04 by mouth ity of 00:00: daily. [place] [address] Medical Branch BACLOFEN Yes 5mg Take 5 mg Univ ers ORAL 4-04 by mouth 2 ity of 00:00: (two) [place] 00 times Medical daily. Branch EC ASPIRIN Yes 81mg Take 81 mg U nivers ORAL 4-04 by mouth ity of 00:00: daily. [address] Lisinopril Lisinopril Yes Jenna 1 tablet Common Millender [facility] Aspirin Aspirin Yes Jenna 1 tablet Comm on Millender [facility] Betaxolol Betaxolol Yes Jenna 1 drop Co mmon HCl HCl Millender into [facility] eye [facility] Lisinopril Lisinopril Yes Jenna 1 tablet Common Millender [facility] Clonidine Clonidine Yes Jenna TAKE 1 Co mmon HCl HCl Millender TABLET BY Spiri t MOUTH - CHI TWICE [facility] Atorvastati Atorvastati Yes Jenna TAKE 1 Common n Calcium n Calcium Millender TABLET BY Spirit MOUTH - CHI EVERY St NIGHT AT [facility] Januvia Husseinuvia Yes Jenna TAKE 1 Common Millender TABLET BY Spiri t MOUTH - CHI DAILY [facility] Venlafaxine Venlafaxine Yes Jenna 1 capsule Common HCl ER HCl ER Millender with food S pirit [facility] Latanoprost Latanoprost Yes Jenna INT 1 GTT Common Millender IN OU QHS. Spir it - CHI [facility] Trazodone Trazodone Yes Jenna TK 1 T PO Common HCl HCl Millender QHS. Spirit CHI [facility] BusPIRone BusPIRone Yes Jenna 1 tablet Common HCl HCl Millender [facility] Levothyroxi Levothyroxi Yes Jenna 1 tablet Common ne Sodium ne Sodium Millender on an Spirit empty - CHI stomach in [facility] Venlafaxine Venlafaxine Yes Jenna TAKE 1 Common HCl HCl Millender TABLET BY Spiri t MOUTH - CHI EVERY DAY St WITH FOOD. [facility] Furosemide Furosemide Yes Jenna 1 tablet Common Millender [facility] BD Pen BD Pen Yes Jenna INJECT Common Needle Disha Needle Disha Millender USING Spirit U/F U/F INSULIN D. [facility] Divalproex Divalproex Yes Jenna as Co mmon Sodium ER Sodium ER Millender directed [facility] Vitamin C Vitamin C Yes Jenna 1 tablet Common Millender [facility] Docusate Docusate Yes Jenna 2 capsule C ommon Sodium Sodium Millender as needed S pirit [facility] Xarelto Xarelto Yes Jenna 20 MG PO Comm on Millender DAILY [facility] Baclofen Baclofen Yes Jenna TK 1 T PO C ommon Millender Q 8 H PRN. Spir it [facility] Lasix Lasix Yes Jenna 40 MG PO Common Millender DAILY [facility] Tresiba Tresiba Yes Jenna 70 units Comm on FlexTouch FlexTouch Millender [facility] Amiodarone Amiodarone Yes Jenna TAKE 1 Common HCl HCl Millender TABLET BY Spiri t MOUTH - CHI EVERY DAY. [facility] Risperidone Risperidone Yes Jenna TAKE 3 Common Millender TABLETS BY Spir it MOUTH ONCE - CHI A DAY. [facility] Symbicort Symbicort Yes Jenna inhale 2 Common Millender puffs po Spirit bid. [facility] Amlodipine Amlodipine Yes Jenna TAKE 1 Common Besylate Besylate Millender TABLET BY Spirit MOUTH - CHI DAILY [facility] Immunizations Ordered Immunization Filled Immunization Date Status [...] virus 2014-06-09 Completed [facility] vaccine, inactivated 14:35:00 [facility] Vital Signs Vital Name Observation Time Observation Value Comments Source Respitory Rate 2017-06-10 22:17:00 [facility] [place] Systolic (mm Hg) 2017-06-10 22:17:00 David rial [place] Diastolic (mm Hg) 2017-06-10 22:17:00 Mem orial [place] Temperature Oral (F) 2017-06-10 22:17:00 98.2 F [facility] [place] Heart Rate 2017-06-10 22:17:00 [facility] [place] Systolic (mm Hg) 2017-06-10 17:00:00 David rial [place] Diastolic (mm Hg) 2017-06-10 17:00:00 Mem orial [place] Respitory Rate 2017-06-10 17:00:00 Mem[facility] [place] Heart Rate 2017-06-10 17:00:00 [facility] [place] Temperature Oral (F) 2017-06-10 17:00:00 98.3 F [facility] [place] Heart Rate 2017-06-10 12:50:00 [facility] [place] Temperature Oral (F) 2017-06-10 12:50:00 98.2 F [facility] Respitory Rate 2017-06-10 12:50:00 [facility] [place] Systolic (mm Hg) 2017-06-10 12:50:00 David rial [place] Diastolic (mm Hg) 2017-06-10 12:50:00 Mem [facility] [place] BMI Calculated 2017 16:42:00 [facility] [place] Weight 2017 16:42:00 [facility] [place] Height 2017 16:42:00 185.42 cm [facility] BMI Calculated 2017 15:56:00 [facility] [place] Weight 2017 15:56:00 [facility] [place] Height 2017 15:56:00 185.42 cm [facility] [place] BMI Calculated 2017 10:33:00 [facility] [place] Height 2017 10:33:00 185.42 cm [facility] Weight 2017 10:33:00 [facility] [place] Heart Rate 2016-07-30 18:00:00 [facility] [place] Respitory Rate 2016-07-30 18:00:00 [facility] [place] Systolic (mm Hg) 2016-07-30 18:00:00 David rial [place] Diastolic (mm Hg) 2016-07-30 18:00:00 Mem orial [place] Temperature Oral (F) 2016-07-30 18:00:00 97.5 F [facility] [place] Systolic (mm Hg) 2016-07-30 14:00:00 David [place] Diastolic (mm Hg) 2016-07-30 14:00:00 Mem o[facility] [place] Heart Rate 2016-07-30 14:00:00 [facility] [place] Respitory Rate 2016-07-30 14:00:00 [facility] [place] Temperature Oral (F) 2016-07-30 14:00:00 97.5 F [facility] [place] Respitory Rate 2016-07-30 13:39:00 [facility] [place] Temperature Oral (F) 2016-07-30 06:19:00 98.1 F [facility] [place] Heart Rate 2016-07-30 06:19:00 [facility] [place] Systolic (mm Hg) 2016-07-30 06:19:00 David rial [place] Diastolic (mm Hg) 2016-07-30 06:19:00 Mem orial [place] Weight 2016-07-28 14:21:00 [facility] [place] Weight 2016-07-28 09:33:00 [facility] [place] Height 2016-07-28 09:33:00 182.88 cm [facility] BMI Calculated 2016-07-28 09:33:00 [facility] [place] Weight 2016-07-28 02:47:00 [facility] [place] BMI Calculated 2016-07-28 02:47:00 [facility] [place] Height 2016-07-28 02:47:00 180.34 cm [facility] Respitory Rate 2016-05-30 18:30:00 Mem[facility] [place] Systolic (mm Hg) 2016-05-30 18:30:00 David [facility] [place] Diastolic (mm Hg) 2016-05-30 18:30:00 Mem o[facility] [place] Temperature Oral (F) 2016-05-30 18:30:00 98.6 F [facility] [place] Respitory Rate 2016-05-30 18:00:00 [facility] [place] Systolic (mm Hg) 2016-05-30 18:00:00 David rial [place] Diastolic (mm Hg) 2016-05-30 18:00:00 Mem o[facility] [place] Respitory Rate 2016-05-30 17:30:00 [facility] [place] Systolic (mm Hg) 2016-05-30 17:30:00 David rial [place] Diastolic (mm Hg) 2016-05-30 17:30:00 Mem orial [place] Heart Rate 2016-05-30 15:14:00 [facility] [place] BMI Calculated 2016-05-30 14:36:00 [facility] [place] Weight 2016-05-30 14:36:00 [facility] [place] Heart Rate 2016-05-30 14:36:00 [facility] [place] Height 2016-05-30 14:36:00 182.88 cm [facility] [place] Temperature Oral (F) 2016-05-30 14:36:00 98.7 F [facility] [place] Systolic (mm Hg) 2015-02-19 16:00:00 David [place] Diastolic (mm Hg) 2015-02-19 16:00:00 Mem o[facility] [place] Respitory Rate 2015-02-19 16:00:00 Mem[facility] [place] Systolic (mm Hg) 2015-02-19 15:00:00 David rial [place] Diastolic (mm Hg) 2015-02-19 15:00:00 Mem o[facility] [place] Respitory Rate 2015-02-19 15:00:00 [facility] [place] Respitory Rate 2015-02-19 14:00:00 [facility] [place] Systolic (mm Hg) 2015-02-19 14:00:00 David rial [place] Diastolic (mm Hg) 2015-02-19 14:00:00 Mem [facility] [place] Temperature Oral (F) 2015-02-18 22:07:00 97.7 F [facility] [place] Temperature Oral (F) 2015-02-18 16:51:00 98.6 F [facility] [place] Weight 2015-02-18 15:03:00 [facility] [place] Temperature Oral (F) 2015-02-18 12:48:00 98.5 F [facility] Heart Rate 2015-02-17 18:50:00 [facility] [place] Height 2015-02-17 18:41:00 185.42 cm [facility] Weight 2015-02-17 18:41:00 [facility] [place] BMI Calculated 2015-02-17 18:41:00 Memori [facility] [place] Heart Rate 2015-02-17 17:52:00 [facility] [place] Heart Rate 2015-02-17 17:34:00 [facility] [place] Weight 2015-02-17 14:33:00 [facility] [place] BMI Calculated 2015-02-17 14:33:00 [facility] [place] Height 2015-02-17 14:33:00 185.42 cm [facility] [place] Diastolic (mm Hg) 2014-06-11 17:24:00 Mem o[facility] [place] Systolic (mm Hg) 2014-06-11 17:24:00 David [facility] [place] Respitory Rate 2014-06-11 17:24:00 [facility] [place] Heart Rate 2014-06-11 17:24:00 [facility] [place] Temperature Oral (F) 2014-06-11 17:24:00 97.4 F [facility] [place] Respitory Rate 2014-06-11 12:27:00 [facility] [place] Heart Rate 2014-06-11 12:26:00 [facility] [place] Temperature Oral (F) 2014-06-11 12:26:00 98.5 F [facility] [place] Systolic (mm Hg) 2014-06-11 12:26:00 David [facility] [place] Diastolic (mm Hg) 2014-06-11 12:26:00 Mem [facility] [place] Respitory Rate 2014-06-11 12:26:00 [facility] [place] Systolic (mm Hg) 2014-06-11 05:07:00 David [place] Diastolic (mm Hg) 2014-06-11 05:07:00 Mem o[facility] [place] Temperature Oral (F) 2014-06-11 05:07:00 98.4 F [facility] Heart Rate 2014-06-11 05:07:00 [facility] [place] BMI Calculated 2014-06-09 05:37:00 [facility] [place] Weight 2014-06-09 05:37:00 [facility] [place] Height 2014-06-09 05:37:00 185.42 cm [facility] Height 2014-06-09 00:05:00 185.42 cm [facility] [place] Weight 2014-06-09 00:05:00 [facility] BMI Calculated 2014-06-09 00:05:00 [facility] Procedures Procedure Date / Time Performed Performing Clinician [facility] e CT LUMBAR SPINE WO 2022-01-14 14:48:02 Andrew Oviedo [facility] Medical Branch CONSENT/REFUSAL FOR 2022-01-14 14:08:22 Doctor Unassigned, No Un [facility] DIAGNOSIS AND Name Medical Branch TREATMENT ASSIGNMENT OF BENEFITS 2022-01-14 14:07:33 Doctor Unassigned, No [facility] XR BONE SURVEY LTD 2021-12-28 15:13:00 Erlin Rodriguez [facility] ASSIGNMENT OF BENEFITS 2021-12-28 13:11:23 Doctor Unassigned, No [facility] Aortic aneurysm repair [facility] Encounters Start End Encounter Admission Attending Care Care Encounter Source Date/Time Date/Time Type Type Clinicians Facility Department ID 2022-10-[address] [facility] [id number] [place] 10:32:46 [id number] [facility] 2021-11-30 Outpatient [facility] [id number] [place] 15:40:57 [id number] [facility] 2021-11-28 Outpatient [facility] [id number] [place] 14:03:42 [id number] [facility] 2021-09-26 Outpatient Esteban [facility] [id number] [facility] 10:59:02 Jenna Fofana08 [facility] 2022-10-24 2022-10-24 Outpatient [facility] [id number] [place] 09:30:00 09:30:00 [facility] 2022-10-05 2022-10-11 Inpatient Bob DOCKERY, [facility] MED [id number] [facility] 16:42:00 17:00:00 JUD 2022-01-14 2022-01-14 Outpatient Mercy OVIEDOUC [facility] [id number] [facility] 09:07:59 23:59:00 ANDREW monte of [facility] 2022-01-14 2022-01-14 [facility] [id number] [facility] 09:07:59 23:59:00 Encounter Andrew ROBIN [id number] ity of [place] [id number] [facility] [id number] [address] 2021-12-28 2021-12-28 [facility] [id number] [facility] 09:51:42 23:59:00 Encounter Erlin ROBIN [id number] ity of [place] [id number] [facility] [id number] [facility] 807 Branch 2021-12-28 2021-12-28 [facility] [id number] Univers 08:13:17 09:50:00 Encounter Andrew ROBIN [id number] [facility] [id number] [facility] [id number] [facility] 804 Branch 2021-12-28 2021-12-28 Outpatient R IVELISSEUC [facility] [id number] Univers 00:00:00 09:50:00 ANDREW ity of [facility] 2021-12-28 2021-12-28 Orders Doctor HOPE [id number] Univers 00:00:00 00:00:00 Only Unassigned, FIDE [id number] ity of [place] [facility] [id number] [facility] [id number] [facility] 009 Branch 2019-09-23 2019-09-23 [facility] [id number] Common 15:09:00 15:09:00 t [facility] [address] [facility] 2019-09-09 2019-09-09 [facility] [id number] Common 11:30:00 11:30:00 t [facility] [address] [facility] 2019-08-05 2019-08-05 [facility] [id number] Common 14:57:00 14:57:00 t [facility] [address] [facility] 2019-08-02 2019-08-02 Out[facility] [id number] Common 14:24:00 14:24:00 t [facility] [address] [facility] 2019-07-26 2019-07-26 [facility] [id number] Common 13:14:00 13:14:00 t [facility] [address] [facility] 2019-07-20 2019-07-20 [facility] [id number] Common 09:08:00 09:08:[address] [facility] 2019-07-14 2019-07-14 [facility] [id number] Common 15:20:00 15:20:[address] [facility] 2019-06-24 2019-06-24 [facility] [id number] Common 11:00:00 11:00:[address] [facility] 2019-06-01 2019-06-01 [facility] [id number] Common 12:18:00 12:18:[address] [facility] 2019-05-31 2019-05-31 [facility] [id number] Common 14:36:00 14:36:[address] [facility] 2019-05-27 2019-05-27 [facility] [id number] Common 10:30:00 10:30:[address] [facility] 2019-04-12 2019-04-12 [facility] [id number] Common 14:45:00 14:45:[address] [facility] 2019-03-22 2019-03-22 [facility] [id number] Common 10:30:00 10:30:[address] [facility] 2019-03-08 2019-03-08 [facility] [id number] Common 14:45:00 14:45:[address] [facility] 2019-03-02 2019-03-02 Out[facility] [id number] Common 10:30:00 10:30:[address] [facility] 2018-12-28 2018-12-28 [facility] [id number] Common 15:15:00 15:15:[address] [facility] 2018-12-10 2018-12-10 [facility] [id number] Common 14:52:00 14:52:00 t [facility] [address] [facility] 2018-11-19 2018-11-19 [facility] [id number] Common 11:30:00 11:30:00 t [facility] [address] [facility] 2018-10-22 2018-10-22 [facility] [id number] Common 11:45:00 11:45:00 t [facility] [address] [facility] 2018-09-18 2018-09-18 [facility] [id number] Common 11:48:00 11:48:00 t [facility] [address] [facility] 2018-09-16 2018-09-16 [facility] [id number] Common 15:42:00 15:42:00 t [facility] [address] [facility] 2017 2017-06-10 Inpatient nullFlavo [facility] [id number] Memoria 10:29:00 22:37:00 [facility] 2017 2017-06-10 Outpatient Katherine, [facility] [id number] 05:29:00 17:37:00 Giancarlo Jade 2016-12-02 2017-01-01 Wound Care [facility]Flavo [facility] [id number] Memoria 18:13:00 04:59:00 [facility] 2016-10-02 2016-11-01 Wound Care [facility]Flavo [facility] [id number] Memoria 16:00:00 05:59:00 [facility] 2016-07-28 2016-07-30 Inpatient [facility]Flavo [facility] [id number] Memoria 02:46:00 20:34:00 [facility] 2016-05-07 2016-06-06 Wound Care nullFlavo [facility] [id number] Memoria 18:08:00 04:59:00 [facility] 2016-05-30 2016-05-30 Emergency nullFlavo [facility] [id number] Memoria 14:35:00 18:49:00 [place] 03 l [facility] 2016-02-06 2016-03-07 Wound Care nullFlavo [facility] 4525 [id number] Memoria 18:04:00 04:59:00 r [place] 03 l [facility] 2015-12-12 2016-01-11 Wound Care nullFlavo [facility] 4525 [id number] Memoria 18:29:00 04:59:00 r [place] 02 l [facility] 2015-10-24 2015-11-23 Wound Care nullFlavo [facility] [id number] Memoria 19:00:00 04:59:00 r [place] 01 l [facility] 2015-09-11 2015-10-11 Wound Care nullFlavo [facility] 4525 [id number] Memoria 15:27:00 05:59:00 r [place] 00 l [facility] 2015-09-15 2015-09-16 Outpt Diag [facility] [id number] Memoria 17:54:00 05:59:00 Services r Outpatient 00 l [facility] 2015-02-17 2015-02-[address] [id number] Memoria 14:32:00 17:39:00 [place] 02 l [facility] 2014-06-08 2014-06-11 [facility] [id number] Memoria 23:44:00 19:30:00 r [place] 01 l [facility] Results Test Description Test Time Test Comments Results Result Comments Source CHEM PANEL 2017-06-09 10:26:00 Test Item Value Reference Range Interpretation Comme nts eGFR (test code = eGFR) 83 [facility] [id number] 10:26:00 Test Item Value Reference Range Interpretation Comments Calcium Lvl (test code = Calcium Lvl) 9.0 8.5-10.5 [facility] [id number] 10:26:00 Test Item Value Reference Range Interpretation Comments AGAP (test code = AGAP) 8.0 10.0-20.0 [facility] [id number] 10:26:00 Test Item Value Reference Range Interpretation Comments Creatinine Lvl (test code = Creatinine 0.91 0.50-1.40 Lvl) [facility]2017-10-09 10:26:00 Test Item Value Reference Range Interpretation Comments Chloride Lvl (test code = Chloride Lvl) 96 95-109 [facility]2017-10-09 10:26:00 Test Item Value Reference Range Interpretation Comments CO2 (test code = CO2) 37 24-32 [facility]2017-10-09 10:26:00 Test Item Value Reference Range Interpretation Comments Sodium Lvl (test code = Sodium Lvl) 137 135-145 [facility]2017-10-09 10:26:00 Test Item Value Reference Range Interpretation Comments Glucose Lvl (test code = Glucose Lvl) 132 70-99 [facility]2017-10-09 10:26:00 Test Item Value Reference Range Interpretation Comments BUN (test code = BUN) 12 7-22 [facility]2017-10-09 10:26:00 Test Item Value Reference Range Interpretation Comments Potassium Lvl (test code = Potassium 4.0 3.5-5.1 Lvl) [id number] 10:26:00 Test Item Value Reference Range Interpretation Comments Basophils (test code = 0.9 See_Comment [Aut omated message] The Basophils) system which ge nerated this result tra nsmitted reference range : <=1.0. The reference r jose alfredo was not used to int erpret this result as normal/abnormal . [facility] [id number] 10:26:00 Test Item Value Reference Range Interpretation Comments Segs-Bands # (test code = Segs-Bands #) 5.6 1.5-8.1 [facility] [id number] 10:26:00 Test Item Value Reference Range Interpretation Comments Monocytes # (test code 1.2 See_Comment [Aut omated message] The = Monocytes #) system which generated this result tra nsmitted reference range : <=0.8. The reference r jose alfredo was not used to int erpret this result as normal/abnormal . [facility] Cy[id number] 10:26:00 Test Item Value Reference Range Interpretation Comments Lymphocytes # (test code = Lymphocytes 1.2 1.0-5.5 #) [facility] [id number] 10:26:00 Test Item Value Reference Range Interpretation Comments Basophils # (test code 0.1 See_Comment [Aut omated message] The = Basophils #) system which generated this result tra nsmitted reference range : <=0.2. The reference r jose alfredo was not used to int erpret this result as normal/abnormal . [facility] [id number] 10:26:00 Test Item Value Reference Range Interpretation Comments Eosinophils # (test code 0.2 See_Comment [A utomated message] The = Eosinophils #) system whic h generated this result tra nsmitted reference range : <=0.5. The reference r jose alfredo was not used to int erpret this result as normal/abnormal . [facility] [id number] 10:26:00 Test Item Value Reference Range Interpretation Comments Eosinophils (test code = 2.0 See_Comment [A utomated message] The Eosinophils) system which ge nerated this result tra nsmitted reference range : <=4.0. The reference r jose alfredo was not used to int erpret this result as normal/abnormal . [facility] Cypre[id number] 10:26:00 Test Item Value Reference Range Interpretation Comments Monocytes (test code = Monocytes) 14.8 2.0-12.0 [facility] [id number] 10:26:00 Test Item Value Reference Range Interpretation Comments Lymphocytes (test code = Lymphocytes) 14.9 20.0-40.0 [facility] C[id number] 10:26:00 Test Item Value Reference Range Interpretation Comments Segs (test code = Segs) 67.4 45.0-75.0 [facility] [id number] 10:26:00 Test Item Value Reference Range Interpretation Comments RDW (test code = RDW) 14.4 11.5-14.5 [facility] Cypre[id number] 10:26:00 Test Item Value Reference Range Interpretation Comments Platelet (test code = Platelet) 324 133-450 [facility] [id number] 10:26:00 Test Item Value Reference Range Interpretation Comments MPV (test code = MPV) 8.9 7.4-10.4 [facility] [id number] 10:26:00 Test Item Value Reference Range Interpretation Comments MCHC (test code = MCHC) 33.7 32.0-36.0 [facility] [id number] 10:26:00 Test Item Value Reference Range Interpretation Comments RBC (test code = RBC) 3.48 4.70-6.10 [facility] Cypre[id number] 10:26:00 Test Item Value Reference Range Interpretation Comments Hgb (test code = Hgb) 10.5 14.0-18.0 [facility] [place]ZgjqrvaZEWAKQCOTN8811-51-87 10:26:00 Test Item Value Reference Range Interpretation Comments MCV (test code = MCV) 89.8 80.0-94.0 [facility] CypressRihmhswSPJZZOVVFY9909-52-46 10:26:00 Test Item Value Reference Range Interpretation Comments Hct (test code = Hct) 31.2 42.0-54.0 [facility] CypressExhiydoIDVYVDOBZX1837-27-24 10:26:00 Test Item Value Reference Range Interpretation Comments MCH (test code = MCH) 30.2 pg 27.0-31.0 [facility] CypressObcdeevNGJVDJPWTL7259-03-81 10:26:00 Test Item Value Reference Range Interpretation Comments WBC (test code = WBC) 8.4 3.7-10.4 [facility]2017-10-09 10:26:00 Test Item Value Reference Range Interpretation Comments eGFR (test code = eGFR) 83 [facility]2017-10-09 10:26:00 Test Item Value Reference Range Interpretation Comments Calcium Lvl (test code = Calcium Lvl) 9.0 8.5-10.5 [facility]2017-10-09 10:26:00 Test Item Value Reference Range Interpretation Comments AGAP (test code = AGAP) 8.0 10.0-20.0 [facility]2017-10-09 10:26:00 Test Item Value Reference Range Interpretation Comments Creatinine Lvl (test code = Creatinine 0.91 0.50-1.40 Lvl) [facility]2017-10-09 10:26:00 Test Item Value Reference Range Interpretation Comments Chloride Lvl (test code = Chloride Lvl) 96 95-109 [facility]2017-10-09 10:26:00 Test Item Value Reference Range Interpretation Comments CO2 (test code = CO2) 37 24-32 [facility]2017-10-09 10:26:00 Test Item Value Reference Range Interpretation Comments Sodium Lvl (test code = Sodium Lvl) 137 135-145 [facility]2017-10-09 10:26:00 Test Item Value Reference Range Interpretation Comments Glucose Lvl (test code = Glucose Lvl) 132 70-99 [facility]2017-10-09 10:26:00 Test Item Value Reference Range Interpretation Comments BUN (test code = BUN) 12 7-22 [facility]2017-10-09 10:26:00 Test Item Value Reference Range Interpretation Comments Potassium Lvl (test code = Potassium 4.0 3.5-5.1 Lvl) [facility] CypressOrbpiljGNIYPJHPRO3773-37-18 10:26:00 Test Item Value Reference Range Interpretation Comments Basophils (test code = 0.9 See_Comment [Aut omated message] The Basophils) system which ge nerated this result tra nsmitted reference range : <=1.0. The reference r jose alfredo was not used to int erpret this result as normal/abnormal . [facility] CypressEptgecmCORURBRUSL9336-82-86 10:26:00 Test Item Value Reference Range Interpretation Comments Segs-Bands # (test code = Segs-Bands #) 5.6 1.5-8.1 [facility] CypressJydruioPOZHPTEDLA6440-93-74 10:26:00 Test Item Value Reference Range Interpretation Comments Monocytes # (test code 1.2 See_Comment [Aut omated message] The = Monocytes #) system which generated this result tra nsmitted reference range : <=0.8. The reference r jose alfredo was not used to int erpret this result as normal/abnormal . [facility] CypressHehgdsmMAGFPVWNPX3049-77-41 10:26:00 Test Item Value Reference Range Interpretation Comments Lymphocytes # (test code = Lymphocytes 1.2 1.0-5.5 #) [facility] CypressJouqlpdZMWVXLIRGG3016-56-69 10:26:00 Test Item Value Reference Range Interpretation Comments Basophils # (test code 0.1 See_Comment [Aut omated message] The = Basophils #) system which generated this result tra nsmitted reference range : <=0.2. The reference r jose alfredo was not used to int erpret this result as normal/abnormal . [facility] CypressKwecwbcMALQXSRKMW6739-95-79 10:26:00 Test Item Value Reference Range Interpretation Comments Eosinophils # (test code 0.2 See_Comment [A utomated message] The = Eosinophils #) system whic h generated this result tra nsmitted reference range : <=0.5. The reference r jose alfredo was not used to int erpret this result as normal/abnormal . [facility] CypressZdgdenfLODEJNJPVP6091-89-47 10:26:00 Test Item Value Reference Range Interpretation Comments Eosinophils (test code = 2.0 See_Comment [A utomated message] The Eosinophils) system which ge nerated this result tra nsmitted reference range : <=4.0. The reference r jose alfredo was not used to int erpret this result as normal/abnormal . [facility] CypressMrruldkRCVVOQDTYW1194-07-22 10:26:00 Test Item Value Reference Range Interpretation Comments Monocytes (test code = Monocytes) 14.8 2.0-12.0 [facility] CypressKhrtpdkBVUUCQKTRF9677-94-19 10:26:00 Test Item Value Reference Range Interpretation Comments Lymphocytes (test code = Lymphocytes) 14.9 20.0-40.0 [facility] CypressVwlegsvNAIOQPAKQR6293-40-80 10:26:00 Test Item Value Reference Range Interpretation Comments Segs (test code = Segs) 67.4 45.0-75.0 [facility] CypressUtwplomLOSWAOQFNY1247-30-18 10:26:00 Test Item Value Reference Range Interpretation Comments RDW (test code = RDW) 14.4 11.5-14.5 [facility] CypressQlierodRBOHEDDHBH5207-28-62 10:26:00 Test Item Value Reference Range Interpretation Comments Platelet (test code = Platelet) 324 133-450 [facility] CypressHtzrpepOISQWQGCNS2238-59-85 10:26:00 Test Item Value Reference Range Interpretation Comments MPV (test code = MPV) 8.9 7.4-10.4 [facility] CypressBduhczuMAUUZRQWND2462-18-28 10:26:00 Test Item Value Reference Range Interpretation Comments MCHC (test code = MCHC) 33.7 32.0-36.0 [facility] CypressBgrtnbjADVFDUTIGJ8605-58-38 10:26:00 Test Item Value Reference Range Interpretation Comments RBC (test code = RBC) 3.48 4.70-6.10 [facility] CypressLrmdjsqGRGYJXVUCR1324-52-66 10:26:00 Test Item Value Reference Range Interpretation Comments Hgb (test code = Hgb) 10.5 14.0-18.0 [facility] CypressFjtcywoSWGSRHIWXA7593-77-67 10:26:00 Test Item Value Reference Range Interpretation Comments MCV (test code = MCV) 89.8 80.0-94.0 [facility] CypressQabjlxiLDZXKQOEYB7912-24-44 10:26:00 Test Item Value Reference Range Interpretation Comments Hct (test code = Hct) 31.2 42.0-54.0 [facility] CypressSfhjsooGJXFNTXFFD2995-13-16 10:26:00 Test Item Value Reference Range Interpretation Comments MCH (test code = MCH) 30.2 pg 27.0-31.0 [facility] CypressKkbavrsHAZIIUXNCB4115-97-60 10:26:00 Test Item Value Reference Range Interpretation Comments WBC (test code = WBC) 8.4 3.7-10.4 [facility]2017-10-09 10:26:00 Test Item Value Reference Range Interpretation Comments eGFR (test code = eGFR) 83 [facility]2017-10-09 10:26:00 Test Item Value Reference Range Interpretation Comments Calcium Lvl (test code = Calcium Lvl) 9.0 8.5-10.5 [facility]2017-10-09 10:26:00 Test Item Value Reference Range Interpretation Comments AGAP (test code = AGAP) 8.0 10.0-20.0 [facility]2017-10-09 10:26:00 Test Item Value Reference Range Interpretation Comments Creatinine Lvl (test code = Creatinine 0.91 0.50-1.40 Lvl) [facility]2017-10-09 10:26:00 Test Item Value Reference Range Interpretation Comments Chloride Lvl (test code = Chloride Lvl) 96 95-109 [facility]2017-10-09 10:26:00 Test Item Value Reference Range Interpretation Comments CO2 (test code = CO2) 37 24-32 [facility]2017-10-09 10:26:00 Test Item Value Reference Range Interpretation Comments Sodium Lvl (test code = Sodium Lvl) 137 135-145 [facility]2017-10-09 10:26:00 Test Item Value Reference Range Interpretation Comments Glucose Lvl (test code = Glucose Lvl) 132 70-99 [facility]2017-10-09 10:26:00 Test Item Value Reference Range Interpretation Comments BUN (test code = BUN) 12 7-22 [facility]2017-10-09 10:26:00 Test Item Value Reference Range Interpretation Comments Potassium Lvl (test code = Potassium 4.0 3.5-5.1 Lvl) [facility] CypressElnsqfxZFLKFMTHIQ7396-25-53 10:26:00 Test Item Value Reference Range Interpretation Comments Basophils (test code = 0.9 See_Comment [Aut omated message] The Basophils) system which ge nerated this result tra nsmitted reference range : <=1.0. The reference r jose alfredo was not used to int erpret this result as normal/abnormal . [facility] CypressZwtjehfNZOFAXBPJJ8891-48-27 10:26:00 Test Item Value Reference Range Interpretation Comments Segs-Bands # (test code = Segs-Bands #) 5.6 1.5-8.1 [facility] CypressJoemgngSORAJTLPER5851-63-87 10:26:00 Test Item Value Reference Range Interpretation Comments Monocytes # (test code 1.2 See_Comment [Aut omated message] The = Monocytes #) system which generated this result tra nsmitted reference range : <=0.8. The reference r jose alfredo was not used to int erpret this result as normal/abnormal . [facility] CypressCyzlomqXDQRREDMQA4109-42-06 10:26:00 Test Item Value Reference Range Interpretation Comments Lymphocytes # (test code = Lymphocytes 1.2 1.0-5.5 #) [facility] CypressHeswaalJBFQDRPTXA0903-38-40 10:26:00 Test Item Value Reference Range Interpretation Comments Basophils # (test code 0.1 See_Comment [Aut omated message] The = Basophils #) system which generated this result tra nsmitted reference range : <=0.2. The reference r jose alfredo was not used to int erpret this result as normal/abnormal . [facility] CypressRlqvevtEMZJULYPID5928-37-02 10:26:00 Test Item Value Reference Range Interpretation Comments Eosinophils # (test code 0.2 See_Comment [A utomated message] The = Eosinophils #) system whic h generated this result tra nsmitted reference range : <=0.5. The reference r jose alfredo was not used to int erpret this result as normal/abnormal . [facility] CypressLyldoefIKSDZPLYPA9171-91-72 10:26:00 Test Item Value Reference Range Interpretation Comments Eosinophils (test code = 2.0 See_Comment [A utomated message] The Eosinophils) system which ge nerated this result tra nsmitted reference range : <=4.0. The reference r jose alfredo was not used to int erpret this result as normal/abnormal . [facility] CypressFelrnwbGFUNVTNIZN8698-33-02 10:26:00 Test Item Value Reference Range Interpretation Comments Monocytes (test code = Monocytes) 14.8 2.0-12.0 [facility] CypressRvtvsjkSQFVAZJFFQ2812-17-93 10:26:00 Test Item Value Reference Range Interpretation Comments Lymphocytes (test code = Lymphocytes) 14.9 20.0-40.0 [facility] CypressXxfkkhgVYDXHAHTBV0084-01-43 10:26:00 Test Item Value Reference Range Interpretation Comments Segs (test code = Segs) 67.4 45.0-75.0 [facility] CypressOwmutslVOIEWXLBYM1674-83-52 10:26:00 Test Item Value Reference Range Interpretation Comments RDW (test code = RDW) 14.4 11.5-14.5 [facility] CypressVxmufmbCZELEEHSGY3016-03-14 10:26:00 Test Item Value Reference Range Interpretation Comments Platelet (test code = Platelet) 324 133-450 [facility] CypressOaygbdlQGJIEDCYAW4029-18-98 10:26:00 Test Item Value Reference Range Interpretation Comments MPV (test code = MPV) 8.9 7.4-10.4 [facility] CypressSxacrxaXAITPFNGAP5462-96-08 10:26:00 Test Item Value Reference Range Interpretation Comments MCHC (test code = MCHC) 33.7 32.0-36.0 [facility] CypressNlhzharGKMAOYKLCI5791-27-55 10:26:00 Test Item Value Reference Range Interpretation Comments RBC (test code = RBC) 3.48 4.70-6.10 [facility] CypressTtbjuddJONAUICGQG1049-99-88 10:26:00 Test Item Value Reference Range Interpretation Comments Hgb (test code = Hgb) 10.5 14.0-18.0 [facility] CypressBxyleocMAHAVTBJQV9224-04-01 10:26:00 Test Item Value Reference Range Interpretation Comments MCV (test code = MCV) 89.8 80.0-94.0 [facility] CypressSoyquihODQHBBYQOH4403-55-14 10:26:00 Test Item Value Reference Range Interpretation Comments Hct (test code = Hct) 31.2 42.0-54.0 [facility] CypressEuxrrofCSICPAOKUT2293-13-09 10:26:00 Test Item Value Reference Range Interpretation Comments MCH (test code = MCH) 30.2 pg 27.0-31.0 [facility] CypressHulkienIRMIKXBCWH6509-67-10 10:26:00 Test Item Value Reference Range Interpretation Comments WBC (test code = WBC) 8.4 3.7-10.4 [facility] HospitalPfvnhpdBRLLVDIZBVPC8177-87-77 09:36:00 Test Item Value Reference Range Interpretation Comments AGAP (test code = AGAP) 6.7 10.0-20.0 [facility] HospitalYakjksgSLPSPUEDFXMD7349-67-42 09:36:00 Test Item Value Reference Range Interpretation Comments B/C Ratio (test code = B/C Ratio) 17 6-25 [facility] HospitalHmjszlbOSWNIDCHFXOK0542-88-32 09:36:00 Test Item Value Reference Range Interpretation Comments Globulin (test code = Globulin) 3.5 2.7-4.2 [facility] HospitalGsqkpysJNZKFOCIMQMK2773-75-00 09:36:00 Test Item Value Reference Range Interpretation Comments A/G Ratio (test code = A/G Ratio) 0.5 0.7-1.6 [facility] HospitalIuhoohgWAQGPDHWJYXG8187-84-14 09:36:00 Test Item Value Reference Range Interpretation Comments eGFR (test code = eGFR) 85 [facility] HospitalCkdkjwxVLYLYSDARYRN3384-51-73 09:36:00 Test Item Value Reference Range Interpretation Comments Total Protein (test code = Total 5.2 6.4-8.4 Protein) [facility] HospitalFdphvuiCGQLQLVOMEFH0849-32-24 09:36:00 Test Item Value Reference Range Interpretation Comments Albumin Lvl (test code = Albumin Lvl) 1.7 3.5-5.0 [facility] HospitalAltcdkpNYCHBIXIRUXA1863-26-83 09:36:00 Test Item Value Reference Range Interpretation Comments ALT (test code = ALT) 18 See_Comment [Auto mated message] The system which ge nerated this result transmit stuart reference range : <=65. The reference range was not used to interpr et this result as cherry l/abnormal. [facility] HospitalCtpjvmnRAVTBGYISORJ7494-73-41 09:36:00 Test Item Value Reference Range Interpretation Comments CO2 (test code = CO2) 36 24-32 [facility] HospitalQkjdnupXJGNPZCMBPJN1132-53-54 09:36:00 Test Item Value Reference Range Interpretation Comments Calcium Lvl (test code = Calcium Lvl) 9.1 8.5-10.5 [facility] HospitalByagsdrHUPEZDNJKZUL8052-24-03 09:36:00 Test Item Value Reference Range Interpretation Comments AST (test code = AST) 16 See_Comment [Auto mated message] The system which ge nerated this result transmit stuart reference range : <=37. The reference range was not used to interpr et this result as cherry l/abnormal. [facility] HospitalGqqmdoqIQHNOPJXCUMT9333-61-17 09:36:00 Test Item Value Reference Range Interpretation Comments Alk Phos (test code = Alk Phos) 38 39-136 [facility] HospitalIvereiyREZDKJKSRJVA4713-66-00 09:36:00 Test Item Value Reference Range Interpretation Comments Bili Total (test code = Bili Total) 0.3 0.2-1.3 [facility] HospitalNnzlyceNRAIGFRJLPJA9890-83-29 09:36:00 Test Item Value Reference Range Interpretation Comments Creatinine Lvl (test code = Creatinine 0.88 0.50-1.40 Lvl) [facility] HospitalVfmabdzWQVFFJDJUNGO4613-19-66 09:36:00 Test Item Value Reference Range Interpretation Comments Sodium Lvl (test code = Sodium Lvl) 136 135-145 [facility] HospitalWtcahcmKCHQBRFAHQSW0300-52-02 09:36:00 Test Item Value Reference Range Interpretation Comments Potassium Lvl (test code = Potassium 3.7 3.5-5.1 Lvl) [facility] HospitalTrwooauOANAZMUPHKIR6503-63-19 09:36:00 Test Item Value Reference Range Interpretation Comments Chloride Lvl (test code = Chloride Lvl) 97 95-109 [facility] HospitalFmejokqBAHTTZYVLCEV5259-77-98 09:36:00 Test Item Value Reference Range Interpretation Comments BUN (test code = BUN) 15 7-22 [facility] HospitalIvwqhavOVDGFEQFSSDU2251-14-37 09:36:00 Test Item Value Reference Range Interpretation Comments Glucose Lvl (test code = Glucose Lvl) 135 70-99 [facility] CypressVnfwwxnFUVLNGGNCZ6607-39-65 09:36:00 Test Item Value Reference Range Interpretation Comments Platelet (test code = Platelet) 327 133-450 [facility] CypressSnxebymRXZICFTMKG5246-17-57 09:36:00 Test Item Value Reference Range Interpretation Comments MPV (test code = MPV) 8.6 7.4-10.4 [facility] CypressDkatarmSKJJRVURJP7220-95-09 09:36:00 Test Item Value Reference Range Interpretation Comments Hct (test code = Hct) 30.7 42.0-54.0 [facility] CypressUiomrxrHPAYBHKEWM0624-51-23 09:36:00 Test Item Value Reference Range Interpretation Comments MCV (test code = MCV) 88.8 80.0-94.0 [facility] CypressOobwgmjKCBFSHCGOV6947-12-25 09:36:00 Test Item Value Reference Range Interpretation Comments RBC (test code = RBC) 3.46 4.70-6.10 [facility] CypressQsoqcdaSLFEDFUPHQ5646-39-30 09:36:00 Test Item Value Reference Range Interpretation Comments Hgb (test code = Hgb) 10.4 14.0-18.0 [facility] CypressEytiazrDLJNHCARHX2467-82-14 09:36:00 Test Item Value Reference Range Interpretation Comments RDW (test code = RDW) 14.2 11.5-14.5 [facility] CypressMlxstyoVYMRNOVHGZ3966-95-24 09:36:00 Test Item Value Reference Range Interpretation Comments MCHC (test code = MCHC) 33.8 32.0-36.0 [facility] CypressEdjdrubHSCLVIFRZZ2048-87-61 09:36:00 Test Item Value Reference Range Interpretation Comments MCH (test code = MCH) 30.0 pg 27.0-31.0 [facility] CypressVmypajeRWLNTDQTBN6386-27-15 09:36:00 Test Item Value Reference Range Interpretation Comments WBC (test code = WBC) 11.4 3.7-10.4 [facility] CypressNklkswuNNYPWXGJWL2173-82-08 09:36:00 Test Item Value Reference Range Interpretation Comments Monocytes # (test code 1.5 See_Comment [Aut omated message] The = Monocytes #) system which generated this result tra nsmitted reference range : <=0.8. The reference r jose alfredo was not used to int erpret this result as normal/abnormal . [facility] CypressQqgwgntFJSPWASLVH1821-95-10 09:36:00 Test Item Value Reference Range Interpretation Comments Eosinophils # (test code 0.2 See_Comment [A utomated message] The = Eosinophils #) system whic h generated this result tra nsmitted reference range : <=0.5. The reference r jose alfredo was not used to int erpret this result as normal/abnormal . [facility] CypressKuasnxlLDSTGLWRQF6786-36-88 09:36:00 Test Item Value Reference Range Interpretation Comments Lymphocytes # (test code = Lymphocytes 1.3 1.0-5.5 #) [facility] CypressGsvfldbOPZPSHYQNM7460-34-69 09:36:00 Test Item Value Reference Range Interpretation Comments Segs-Bands # (test code = Segs-Bands #) 8.3 1.5-8.1 [facility] CypressIbjmfacSAHJGPZVDD3105-45-28 09:36:00 Test Item Value Reference Range Interpretation Comments Eosinophils (test code = 2.0 See_Comment [A utomated message] The Eosinophils) system which ge nerated this result tra nsmitted reference range : <=4.0. The reference r jose alfredo was not used to int erpret this result as normal/abnormal . [facility] CypressIngfkhvYQLNNDBADD0201-07-07 09:36:00 Test Item Value Reference Range Interpretation Comments Monocytes (test code = Monocytes) 13.2 2.0-12.0 [facility] CypressTvxmctiVRQINHZZSU1593-39-40 09:36:00 Test Item Value Reference Range Interpretation Comments Lymphocytes (test code = Lymphocytes) 11.1 20.0-40.0 [facility] CypressQorddmgNNHWVVVDHP0152-34-71 09:36:00 Test Item Value Reference Range Interpretation Comments Segs (test code = Segs) 73.2 45.0-75.0 [facility] CypressHokygcjKBQKAHELVY2821-33-90 09:36:00 Test Item Value Reference Range Interpretation Comments Basophils # (test code 0.1 See_Comment [Aut omated message] The = Basophils #) system which generated this result tra nsmitted reference range : <=0.2. The reference r jose alfredo was not used to int erpret this result as normal/abnormal . [facility] CypressQooyewyNFCUOLILHE2828-21-38 09:36:00 Test Item Value Reference Range Interpretation Comments Basophils (test code = 0.5 See_Comment [Aut omated message] The Basophils) system which ge nerated this result tra nsmitted reference range : <=1.0. The reference r jose alfredo was not used to int erpret this result as normal/abnormal . [facility] HospitalBggxbgoVLKDLGXXZNUO5137-20-25 09:36:00 Test Item Value Reference Range Interpretation Comments AGAP (test code = AGAP) 6.7 10.0-20.0 [facility] HospitalGhfshjaQHHDZPESIBXP2632-13-43 09:36:00 Test Item Value Reference Range Interpretation Comments B/C Ratio (test code = B/C Ratio) 17 6-25 [facility] HospitalPgkrnsoIZIYAXSQJUSS7088-46-24 09:36:00 Test Item Value Reference Range Interpretation Comments Globulin (test code = Globulin) 3.5 2.7-4.2 [facility] HospitalYrttuzcFAFCKGFIFSSL1835-74-51 09:36:00 Test Item Value Reference Range Interpretation Comments A/G Ratio (test code = A/G Ratio) 0.5 0.7-1.6 [facility] HospitalEgxmzxuJJBCVAQIIBIG3422-44-97 09:36:00 Test Item Value Reference Range Interpretation Comments eGFR (test code = eGFR) 85 [facility] HospitalEacffhjEJLXGGQRSPFZ1560-71-80 09:36:00 Test Item Value Reference Range Interpretation Comments Total Protein (test code = Total 5.2 6.4-8.4 Protein) [facility] HospitalHrboyipPSEVCUPSGFCP8416-92-20 09:36:00 Test Item Value Reference Range Interpretation Comments Albumin Lvl (test code = Albumin Lvl) 1.7 3.5-5.0 [facility] HospitalLtpdjorFOCCLAOWEJXT8818-69-76 09:36:00 Test Item Value Reference Range Interpretation Comments ALT (test code = ALT) 18 See_Comment [Auto mated message] The system which ge nerated this result transmit stuart reference range : <=65. The reference range was not used to interpr et this result as cherry l/abnormal. [facility] HospitalOkylakbJXSLCXTHNMTG9036-44-47 09:36:00 Test Item Value Reference Range Interpretation Comments CO2 (test code = CO2) 36 24-32 [facility] HospitalZhiyxhbUACSYEHCQEVI4681-97-52 09:36:00 Test Item Value Reference Range Interpretation Comments Calcium Lvl (test code = Calcium Lvl) 9.1 8.5-10.5 [facility] HospitalWeeuthuMQNCCHTOPZNQ9673-06-66 09:36:00 Test Item Value Reference Range Interpretation Comments AST (test code = AST) 16 See_Comment [Auto mated message] The system which ge nerated this result transmit stuart reference range : <=37. The reference range was not used to interpr et this result as cherry l/abnormal. [facility] HospitalFszfnrmPFJEVVIYURSX5038-67-62 09:36:00 Test Item Value Reference Range Interpretation Comments Alk Phos (test code = Alk Phos) 38 39-136 [facility] HospitalMruigqwGZHPTOOCDGCP7892-46-63 09:36:00 Test Item Value Reference Range Interpretation Comments Bili Total (test code = Bili Total) 0.3 0.2-1.3 [facility] HospitalTcvqndcNHICJSIXPVJX3442-81-49 09:36:00 Test Item Value Reference Range Interpretation Comments Creatinine Lvl (test code = Creatinine 0.88 0.50-1.40 Lvl) [facility] HospitalJuglzpeTSSCEYNDXZMT4476-15-40 09:36:00 Test Item Value Reference Range Interpretation Comments Sodium Lvl (test code = Sodium Lvl) 136 135-145 [facility] HospitalOgocynbGWNUNRCGVYWG4801-14-86 09:36:00 Test Item Value Reference Range Interpretation Comments Potassium Lvl (test code = Potassium 3.7 3.5-5.1 Lvl) [facility]AsmyrxlWYTQIRSUVQIF7479-81-28 09:36:00 Test Item Value Reference Range Interpretation Comments Chloride Lvl (test code = Chloride Lvl) 97 95-109 [facility] HospitalQnqcecyZDXZRJBVPANQ6882-82-89 09:36:00 Test Item Value Reference Range Interpretation Comments BUN (test code = BUN) 15 7-22 [facility] HospitalMwrbotrPLHNAKXINZBW8239-83-70 09:36:00 Test Item Value Reference Range Interpretation Comments Glucose Lvl (test code = Glucose Lvl) 135 70-99 [facility]UhdhebsYXPCCEIVZS3256-59-89 09:36:00 Test Item Value Reference Range Interpretation Comments Platelet (test code = Platelet) 327 133-450 [facility]ressJrywmlhCLLFQDHQWX4856-20-61 09:36:00 Test Item Value Reference Range Interpretation Comments MPV (test code = MPV) 8.6 7.4-10.4 [facility] CypressYycudnsVJIQVSQXUY3778-62-74 09:36:00 Test Item Value Reference Range Interpretation Comments Hct (test code = Hct) 30.7 42.0-54.0 [facility] CypressVgbieptWODACPEGGV9384-29-96 09:36:00 Test Item Value Reference Range Interpretation Comments MCV (test code = MCV) 88.8 80.0-94.0 [facility] CypressPoxjsmaNVOTRBOIJY3643-11-99 09:36:00 Test Item Value Reference Range Interpretation Comments RBC (test code = RBC) 3.46 4.70-6.10 [facility] CypressLuwmyseILYBQKBRMV0908-83-37 09:36:00 Test Item Value Reference Range Interpretation Comments Hgb (test code = Hgb) 10.4 14.0-18.0 [facility] CypressOwwsmuqIXXPMOPAUP4368-69-30 09:36:00 Test Item Value Reference Range Interpretation Comments RDW (test code = RDW) 14.2 11.5-14.5 [facility] CypressCdxnxjcNVVXJPIQBK4849-47-39 09:36:00 Test Item Value Reference Range Interpretation Comments MCHC (test code = MCHC) 33.8 32.0-36.0 [facility]ressSpvgcqhKDTWGTNWEE9225-56-03 09:36:00 Test Item Value Reference Range Interpretation Comments MCH (test code = MCH) 30.0 pg 27.0-31.0 [facility] CypressAdqtljsJWFXVKQBLF5427-66-07 09:36:00 Test Item Value Reference Range Interpretation Comments WBC (test code = WBC) 11.4 3.7-10.4 [facility] CypressCkiuslaFBNLDIGRHD0715-53-64 09:36:00 Test Item Value Reference Range Interpretation Comments Monocytes # (test code 1.5 See_Comment [Aut omated message] The = Monocytes #) system which generated this result tra nsmitted reference range : <=0.8. The reference r jose alfredo was not used to int erpret this result as normal/abnormal . [facility] CypressBuwjhwyQIVQBDAGNC7384-10-69 09:36:00 Test Item Value Reference Range Interpretation Comments Eosinophils # (test code 0.2 See_Comment [A utomated message] The = Eosinophils #) system whic h generated this result tra nsmitted reference range : <=0.5. The reference r jose alfredo was not used to int erpret this result as normal/abnormal . [facility] CypressTlhdrxbBKYWDWCCBK6218-45-89 09:36:00 Test Item Value Reference Range Interpretation Comments Lymphocytes # (test code = Lymphocytes 1.3 1.0-5.5 #) [facility] CypressBbxqbizNWYIGPJVNF0545-46-43 09:36:00 Test Item Value Reference Range Interpretation Comments Segs-Bands # (test code = Segs-Bands #) 8.3 1.5-8.1 [facility] CypressPobkcvxJZBJSDNTJU4331-24-68 09:36:00 Test Item Value Reference Range Interpretation Comments Eosinophils (test code = 2.0 See_Comment [A utomated message] The Eosinophils) system which ge nerated this result tra nsmitted reference range : <=4.0. The reference r jose alfredo was not used to int erpret this result as normal/abnormal . [facility] CypressVadfhbxLDCOTRMUUJ0165-53-78 09:36:00 Test Item Value Reference Range Interpretation Comments Monocytes (test code = Monocytes) 13.2 2.0-12.0 [facility] CypressVdlontyDJUELFFFOX5311-49-96 09:36:00 Test Item Value Reference Range Interpretation Comments Lymphocytes (test code = Lymphocytes) 11.1 20.0-40.0 [facility] CypressFuxktjhMWXCSEXTBK3973-15-89 09:36:00 Test Item Value Reference Range Interpretation Comments Segs (test code = Segs) 73.2 45.0-75.0 [facility] CypressRpvzesfZTZLMRWBNM9106-10-12 09:36:00 Test Item Value Reference Range Interpretation Comments Basophils # (test code 0.1 See_Comment [Aut omated message] The = Basophils #) system which generated this result tra nsmitted reference range : <=0.2. The reference r jose alfredo was not used to int erpret this result as normal/abnormal . [facility] CypressWggigenTTHZPZMPVF9579-48-67 09:36:00 Test Item Value Reference Range Interpretation Comments Basophils (test code = 0.5 See_Comment [Aut omated message] The Basophils) system which ge nerated this result tra nsmitted reference range : <=1.0. The reference r jose alfredo was not used to int erpret this result as normal/abnormal . [facility] HospitalOhvzjvsWIPWCSDIJVLY9415-21-85 09:36:00 Test Item Value Reference Range Interpretation Comments AGAP (test code = AGAP) 6.7 10.0-20.0 [facility] HospitalCjtjduwZMDNURBWFKNK2518-53-26 09:36:00 Test Item Value Reference Range Interpretation Comments B/C Ratio (test code = B/C Ratio) 17 6-25 [facility] HospitalYucljmkNYETFDKDWKJY5186-56-06 09:36:00 Test Item Value Reference Range Interpretation Comments Globulin (test code = Globulin) 3.5 2.7-4.2 [facility] HospitalCvwvjnhAXHLRHNQHESL0738-91-41 09:36:00 Test Item Value Reference Range Interpretation Comments A/G Ratio (test code = A/G Ratio) 0.5 0.7-1.6 [facility] HospitalYdqbpxmHUKRQLGRROBY2517-12-89 09:36:00 Test Item Value Reference Range Interpretation Comments eGFR (test code = eGFR) 85 [facility] HospitalVuamrcfCOMRCTJEVSMB2897-16-49 09:36:00 Test Item Value Reference Range Interpretation Comments Total Protein (test code = Total 5.2 6.4-8.4 Protein) [facility] HospitalNytxufaBOUMUBSMBWKO7984-24-47 09:36:00 Test Item Value Reference Range Interpretation Comments Albumin Lvl (test code = Albumin Lvl) 1.7 3.5-5.0 [facility] HospitalHoyfcewZXDXGMPDOYUG1129-23-62 09:36:00 Test Item Value Reference Range Interpretation Comments ALT (test code = ALT) 18 See_Comment [Auto mated message] The system which ge nerated this result transmit stuart reference range : <=65. The reference range was not used to interpr et this result as cherry l/abnormal. [facility] HospitalPrjizztDAXRNKQIAACE7776-73-95 09:36:00 Test Item Value Reference Range Interpretation Comments CO2 (test code = CO2) 36 24-32 [facility] HospitalStrbqjcQZRRYFXGMKXP9291-98-79 09:36:00 Test Item Value Reference Range Interpretation Comments Calcium Lvl (test code = Calcium Lvl) 9.1 8.5-10.5 [facility] HospitalZqvzxlfBCAVGOJTMSSY8691-70-40 09:36:00 Test Item Value Reference Range Interpretation Comments AST (test code = AST) 16 See_Comment [Auto mated message] The system which ge nerated this result transmit stuart reference range : <=37. The reference range was not used to interpr et this result as cherry l/abnormal. [facility] HospitalKkigutfVNAKCYYWNPNC8767-34-44 09:36:00 Test Item Value Reference Range Interpretation Comments Alk Phos (test code = Alk Phos) 38 39-136 [facility] HospitalZqfnfvtJIHXVEMHAFQL1098-22-85 09:36:00 Test Item Value Reference Range Interpretation Comments Bili Total (test code = Bili Total) 0.3 0.2-1.3 [facility] HospitalPvjzkimNJAOZMBRHDLX9144-82-28 09:36:00 Test Item Value Reference Range Interpretation Comments Creatinine Lvl (test code = Creatinine 0.88 0.50-1.40 Lvl) [facility] HospitalLvpqefoUEPTZSRWMIBH6331-37-49 09:36:00 Test Item Value Reference Range Interpretation Comments Sodium Lvl (test code = Sodium Lvl) 136 135-145 [facility] HospitalHcvqpzrZHPJNTYIXWHX7056-58-36 09:36:00 Test Item Value Reference Range Interpretation Comments Potassium Lvl (test code = Potassium 3.7 3.5-5.1 Lvl) [facility] HospitalQpeuhzePUJXOAILPJJV8471-76-45 09:36:00 Test Item Value Reference Range Interpretation Comments Chloride Lvl (test code = Chloride Lvl) 97 95-109 [facility] HospitalSzxszisEHEAEWFSDHSW6334-45-75 09:36:00 Test Item Value Reference Range Interpretation Comments BUN (test code = BUN) 15 7-22 [facility] HospitalNtosmdwIZMDTKCTBPUU8314-85-41 09:36:00 Test Item Value Reference Range Interpretation Comments Glucose Lvl (test code = Glucose Lvl) 135 70-99 [facility] CypressZxppmynFHJJMTKGCH8479-34-93 09:36:00 Test Item Value Reference Range Interpretation Comments Platelet (test code = Platelet) 327 133-450 [facility]ressWtfxgttHNAOYVXSYV8904-37-07 09:36:00 Test Item Value Reference Range Interpretation Comments MPV (test code = MPV) 8.6 7.4-10.4 [facility] CypressKrgkhngUYYZKTOCLU8667-15-02 09:36:00 Test Item Value Reference Range Interpretation Comments Hct (test code = Hct) 30.7 42.0-54.0 [facility] CypressCbigcmrWRJQCZLPHT5723-49-21 09:36:00 Test Item Value Reference Range Interpretation Comments MCV (test code = MCV) 88.8 80.0-94.0 [facility] CypressDvbtdeiHIWQMYZUOZ4769-88-30 09:36:00 Test Item Value Reference Range Interpretation Comments RBC (test code = RBC) 3.46 4.70-6.10 [facility] CypressKwideqgEZTBHRTYTB8784-01-69 09:36:00 Test Item Value Reference Range Interpretation Comments Hgb (test code = Hgb) 10.4 14.0-18.0 [facility] CypressFwizeriQMGQXCFOLG5469-04-84 09:36:00 Test Item Value Reference Range Interpretation Comments RDW (test code = RDW) 14.2 11.5-14.5 [facility] CypressHattzcpDIJXYHQOJB6381-74-25 09:36:00 Test Item Value Reference Range Interpretation Comments MCHC (test code = MCHC) 33.8 32.0-36.0 [facility] CypressXbrxoprRDVUNNIQPZ8852-52-78 09:36:00 Test Item Value Reference Range Interpretation Comments MCH (test code = MCH) 30.0 pg 27.0-31.0 [facility] CypressGyqxghmRXRFEBQLQB4675-74-15 09:36:00 Test Item Value Reference Range Interpretation Comments WBC (test code = WBC) 11.4 3.7-10.4 [facility] CypressOekarqzBDHENUYDMV7580-61-23 09:36:00 Test Item Value Reference Range Interpretation Comments Monocytes # (test code 1.5 See_Comment [Aut omated message] The = Monocytes #) system which generated this result tra nsmitted reference range : <=0.8. The reference r jose alfredo was not used to int erpret this result as normal/abnormal . [facility] CypressLpcssmzAWQFEGLFOU5443-87-83 09:36:00 Test Item Value Reference Range Interpretation Comments Eosinophils # (test code 0.2 See_Comment [A utomated message] The = Eosinophils #) system whic h generated this result tra nsmitted reference range : <=0.5. The reference r jose alfredo was not used to int erpret this result as normal/abnormal . [facility] CypressJnipwrpSRRZYWJTQR8676-63-90 09:36:00 Test Item Value Reference Range Interpretation Comments Lymphocytes # (test code = Lymphocytes 1.3 1.0-5.5 #) [facility] CypressFeshlboIIYAWBGHJR1762-18-34 09:36:00 Test Item Value Reference Range Interpretation Comments Segs-Bands # (test code = Segs-Bands #) 8.3 1.5-8.1 [facility] CypressUtmehhqKIECMJUBEP5448-92-43 09:36:00 Test Item Value Reference Range Interpretation Comments Eosinophils (test code = 2.0 See_Comment [A utomated message] The Eosinophils) system which ge nerated this result tra nsmitted reference range : <=4.0. The reference r jose alfredo was not used to int erpret this result as normal/abnormal . [facility] CypressJzwicguQABXOCXJQT2489-59-73 09:36:00 Test Item Value Reference Range Interpretation Comments Monocytes (test code = Monocytes) 13.2 2.0-12.0 [facility]ressCjbmgvoYDSCBHDKQF6510-96-65 09:36:00 Test Item Value Reference Range Interpretation Comments Lymphocytes (test code = Lymphocytes) 11.1 20.0-40.0 [facility] CypressAluyyiuNOBSDYGXXV5812-82-73 09:36:00 Test Item Value Reference Range Interpretation Comments Segs (test code = Segs) 73.2 45.0-75.0 [facility] CypressKrmlxfuQDUSYXMSQX8774-22-36 09:36:00 Test Item Value Reference Range Interpretation Comments Basophils # (test code 0.1 See_Comment [Aut omated message] The = Basophils #) system which generated this result tra nsmitted reference range : <=0.2. The reference r jose alfredo was not used to int erpret this result as normal/abnormal . [facility] CypressMkwutwwTRAGPLPXBI8589-39-81 09:36:00 Test Item Value Reference Range Interpretation Comments Basophils (test code = 0.5 See_Comment [Aut omated message] The Basophils) system which ge nerated this result tra nsmitted reference range : <=1.0. The reference r jose alfredo was not used to int erpret this result as normal/abnormal . [facility]2017-10-04 15:09:00 Test Item Value Reference Range Interpretation Comments B/C Ratio (test code = B/C Ratio) 15 6-25 [facility]2017-10-04 15:09:00 Test Item Value Reference Range Interpretation Comments Globulin (test code = Globulin) 3.7 2.7-4.2 [facility]2017-10-04 15:09:00 Test Item Value Reference Range Interpretation Comments A/G Ratio (test code = A/G Ratio) 0.5 0.7-1.6 [facility]2017-10-04 15:09:00 Test Item Value Reference Range Interpretation Comments AGAP (test code = AGAP) 10.8 10.0-20.0 [facility]2017-10-04 15:09:00 Test Item Value Reference Range Interpretation Comments eGFR (test code = eGFR) 83 [facility]2017-10-04 15:09:00 Test Item Value Reference Range Interpretation Comments Alk Phos (test code = Alk Phos) 43 39-136 [facility]2017-10-04 15:09:00 Test Item Value Reference Range Interpretation Comments Bili Total (test code = Bili Total) 0.3 0.2-1.3 [facility]2017-10-04 15:09:00 Test Item Value Reference Range Interpretation Comments Total Protein (test code = Total 5.4 6.4-8.4 Protein) [facility]2017-10-04 15:09:00 Test Item Value Reference Range Interpretation Comments Calcium Lvl (test code = Calcium Lvl) 8.9 8.5-10.5 [facility]2017-10-04 15:09:00 Test Item Value Reference Range Interpretation Comments Albumin Lvl (test code = Albumin Lvl) 1.7 3.5-5.0 [facility]2017-10-04 15:09:00 Test Item Value Reference Range Interpretation Comments CO2 (test code = CO2) 35 24-32 [facility]2017-10-04 15:09:00 Test Item Value Reference Range Interpretation Comments ALT (test code = ALT) 21 See_Comment [Auto mated message] The system which ge nerated this result transmit stuart reference range : <=65. The reference range was not used to interpr et this result as cherry l/abnormal. [facility]2017-10-04 15:09:00 Test Item Value Reference Range Interpretation Comments AST (test code = AST) 19 See_Comment [Auto mated message] The system which ge nerated this result transmit stuart reference range : <=37. The reference range was not used to interpr et this result as cherry l/abnormal. [facility]2017-10-04 15:09:00 Test Item Value Reference Range Interpretation Comments Creatinine Lvl (test code = Creatinine 0.91 0.50-1.40 Lvl) [facility]2017-10-04 15:09:00 Test Item Value Reference Range Interpretation Comments Sodium Lvl (test code = Sodium Lvl) 135 135-145 [facility]2017-10-04 15:09:00 Test Item Value Reference Range Interpretation Comments BUN (test code = BUN) 14 7-22 [facility]2017-10-04 15:09:00 Test Item Value Reference Range Interpretation Comments Chloride Lvl (test code = Chloride Lvl) 93 95-109 [facility]2017-10-04 15:09:00 Test Item Value Reference Range Interpretation Comments Potassium Lvl (test code = Potassium 3.8 3.5-5.1 Lvl) [facility]2017-10-04 15:09:00 Test Item Value Reference Range Interpretation Comments Glucose Lvl (test code = Glucose Lvl) 145 70-99 [facility]ressIaqqgjbWSTFZDAEBL5849-79-36 15:09:00 Test Item Value Reference Range Interpretation Comments Spherocyte (test code = Moderate Spherocyte) *ABN*(06/04/17 10:09 AM) [facility] CypressFbuiimoKBNRDUFKRB9311-16-24 15:09:00 Test Item Value Reference Range Interpretation Comments RBC Morph (test code = Normal (06/04/17 10:09 RBC Morph) AM) [facility]ressNcywmkrBQOZLBCSQN4960-99-01 15:09:00 Test Item Value Reference Range Interpretation Comments Large Plt (test code Moderate *ABN*(06/04/17 = Large Plt) 10:09 AM) [facility] CypressTqqdrzhDEPTTFBPMP4573-70-19 15:09:00 Test Item Value Reference Range Interpretation Comments Toxic Gran (test code Moderate *ABN*(06/04/17 = Toxic Gran) 10:09 AM) [facility] CypressLfjyrrkWXXXITKJRM1668-12-21 15:09:00 Test Item Value Reference Range Interpretation Comments Lymphocytes (test code = Lymphocytes) 8.0 20.0-40.0 [facility] CypressIkmbfpqJNLOTSYSZA3759-30-83 15:09:00 Test Item Value Reference Range Interpretation Comments Bands (test code = 4.0 See_Comment [Automat ed message] The Bands) system which ge nerated this result transmit stuart reference range : <=11.0. The reference r jose alfredo was not used to interpr et this result as cherry l/abnormal. [facility]ressHlzepgePUHKAOHRLS4534-41-60 15:09:00 Test Item Value Reference Range Interpretation Comments Atypical Lymphs (test code = Atypical 0.0 Lymphs) [facility] CypressIohgqmnMDXGBUACGI4642-45-81 15:09:00 Test Item Value Reference Range Interpretation Comments Eosinophils (test code = 1.0 See_Comment [A utomated message] The Eosinophils) system which ge nerated this result tra nsmitted reference range : <=4.0. The reference r jose alfredo was not used to int erpret this result as normal/abnormal . [facility]ressXgmetfkBCADRLLPAW9727-67-69 15:09:00 Test Item Value Reference Range Interpretation Comments Monocytes (test code = Monocytes) 7.0 2.0-12.0 [facility] CypressAkrhonuQDHIPXYRSR8531-83-49 15:09:00 Test Item Value Reference Range Interpretation Comments Segs (test code = Segs) 80.0 45.0-75.0 [facility]ressOvykbseLGUBOTNBZY5857-34-87 15:09:00 Test Item Value Reference Range Interpretation Comments Eosinophils # (test code 0.1 See_Comment [A utomated message] The = Eosinophils #) system whic h generated this result tra nsmitted reference range : <=0.5. The reference r jose alfredo was not used to int erpret this result as normal/abnormal . [facility]ressPvphltgIPQNMZAGMX0300-50-12 15:09:00 Test Item Value Reference Range Interpretation Comments Segs-Bands # (test code = Segs-Bands #) 11.8 1.5-8.1 [facility] CypressZjrnlreTHOACNTBCK7816-37-09 15:09:00 Test Item Value Reference Range Interpretation Comments Monocytes # (test code 1.0 See_Comment [Aut omated message] The = Monocytes #) system which generated this result tra nsmitted reference range : <=0.8. The reference r jose alfredo was not used to int erpret this result as normal/abnormal . [facility] CypressOilplxlHHDNTTPYRL9944-44-02 15:09:00 Test Item Value Reference Range Interpretation Comments Lymphocytes # (test code = Lymphocytes 1.1 1.0-5.5 #) [facility] CypressIgbaescGDBWZTJTTO1027-66-40 15:09:00 Test Item Value Reference Range Interpretation Comments MCH (test code = MCH) 29.7 pg 27.0-31.0 [facility] CypressJlhivqmAQQVUEQVLO5128-51-07 15:09:00 Test Item Value Reference Range Interpretation Comments Hct (test code = Hct) 32.8 42.0-54.0 [facility] CypressWdehvfkEGLYKQZWFO7276-48-98 15:09:00 Test Item Value Reference Range Interpretation Comments Hgb (test code = Hgb) 11.0 14.0-18.0 [facility] CypressGwtyxktEAZUOEVCYX1583-30-15 15:09:00 Test Item Value Reference Range Interpretation Comments RBC (test code = RBC) 3.68 4.70-6.10 [facility] CypressBgxvtcyFEDEOPIIWN9457-67-61 15:09:00 Test Item Value Reference Range Interpretation Comments MCV (test code = MCV) 89.0 80.0-94.0 [facility] CypressLmmlshdQMQATQHXFA7245-03-31 15:09:00 Test Item Value Reference Range Interpretation Comments WBC (test code = WBC) 14.0 3.7-10.4 [facility] CypressStfkgeoHXGFQRVVPU6642-58-92 15:09:00 Test Item Value Reference Range Interpretation Comments RDW (test code = RDW) 14.4 11.5-14.5 [facility] CypressHqjfpgxFLQROFFMKL4794-93-57 15:09:00 Test Item Value Reference Range Interpretation Comments Platelet (test code = Platelet) 336 133-450 [facility] CypressYxraenuPOPCOEDFWQ8823-53-16 15:09:00 Test Item Value Reference Range Interpretation Comments MPV (test code = MPV) 8.5 7.4-10.4 [facility] CypressHgebcjiCYUKVPHGBR2178-31-15 15:09:00 Test Item Value Reference Range Interpretation Comments MCHC (test code = MCHC) 33.4 32.0-36.0 [facility]2017-10-04 15:09:00 Test Item Value Reference Range Interpretation Comments B/C Ratio (test code = B/C Ratio) 15 6-25 [facility]2017-10-04 15:09:00 Test Item Value Reference Range Interpretation Comments Globulin (test code = Globulin) 3.7 2.7-4.2 [facility]2017-10-04 15:09:00 Test Item Value Reference Range Interpretation Comments A/G Ratio (test code = A/G Ratio) 0.5 0.7-1.6 [facility]2017-10-04 15:09:00 Test Item Value Reference Range Interpretation Comments AGAP (test code = AGAP) 10.8 10.0-20.0 [facility]2017-10-04 15:09:00 Test Item Value Reference Range Interpretation Comments eGFR (test code = eGFR) 83 [facility]2017-10-04 15:09:00 Test Item Value Reference Range Interpretation Comments Alk Phos (test code = Alk Phos) 43 39-136 [facility]2017-10-04 15:09:00 Test Item Value Reference Range Interpretation Comments Bili Total (test code = Bili Total) 0.3 0.2-1.3 [facility]2017-10-04 15:09:00 Test Item Value Reference Range Interpretation Comments Total Protein (test code = Total 5.4 6.4-8.4 Protein) [facility]2017-10-04 15:09:00 Test Item Value Reference Range Interpretation Comments Calcium Lvl (test code = Calcium Lvl) 8.9 8.5-10.5 [facility]2017-10-04 15:09:00 Test Item Value Reference Range Interpretation Comments Albumin Lvl (test code = Albumin Lvl) 1.7 3.5-5.0 [facility]2017-10-04 15:09:00 Test Item Value Reference Range Interpretation Comments CO2 (test code = CO2) 35 24-32 [facility]2017-10-04 15:09:00 Test Item Value Reference Range Interpretation Comments ALT (test code = ALT) 21 See_Comment [Auto mated message] The system which ge nerated this result transmit stuart reference range : <=65. The reference range was not used to interpr et this result as cherry l/abnormal. [facility]2017-10-04 15:09:00 Test Item Value Reference Range Interpretation Comments AST (test code = AST) 19 See_Comment [Auto mated message] The system which ge nerated this result transmit stuart reference range : <=37. The reference range was not used to interpr et this result as cherry l/abnormal. [facility]2017-10-04 15:09:00 Test Item Value Reference Range Interpretation Comments Creatinine Lvl (test code = Creatinine 0.91 0.50-1.40 Lvl) [facility]2017-10-04 15:09:00 Test Item Value Reference Range Interpretation Comments Sodium Lvl (test code = Sodium Lvl) 135 135-145 [facility]2017-10-04 15:09:00 Test Item Value Reference Range Interpretation Comments BUN (test code = BUN) 14 7-22 [facility]2017-10-04 15:09:00 Test Item Value Reference Range Interpretation Comments Chloride Lvl (test code = Chloride Lvl) 93 95-109 [facility]2017-10-04 15:09:00 Test Item Value Reference Range Interpretation Comments Potassium Lvl (test code = Potassium 3.8 3.5-5.1 Lvl) [facility]2017-10-04 15:09:00 Test Item Value Reference Range Interpretation Comments Glucose Lvl (test code = Glucose Lvl) 145 70-99 [facility]ajjlbpSNJFZPNUDE2241-61-16 15:09:00 Test Item Value Reference Range Interpretation Comments Spherocyte (test code = Moderate Spherocyte) *ABN*(06/04/17 10:09 AM) [facility]ressPgwvuibBKQHXXBXIK3859-05-44 15:09:00 Test Item Value Reference Range Interpretation Comments RBC Morph (test code = Normal (06/04/17 10:09 RBC Morph) AM) [facility]ressLqnqcsyHGWIIJBINP4472-87-32 15:09:00 Test Item Value Reference Range Interpretation Comments Large Plt (test code Moderate *ABN*(06/04/17 = Large Plt) 10:09 AM) [facility]ressQxyzlktPPJYYOKRHK2790-76-89 15:09:00 Test Item Value Reference Range Interpretation Comments Toxic Gran (test code Moderate *ABN*(06/04/17 = Toxic Gran) 10:09 AM) [facility] CypressDrorwccGPSPKGPQXP7834-73-60 15:09:00 Test Item Value Reference Range Interpretation Comments Lymphocytes (test code = Lymphocytes) 8.0 20.0-40.0 [facility]ressHgyzvybUYKPUCDPDW2728-74-75 15:09:00 Test Item Value Reference Range Interpretation Comments Bands (test code = 4.0 See_Comment [Automat ed message] The Bands) system which ge nerated this result transmit stuart reference range : <=11.0. The reference r jose alfredo was not used to interpr et this result as cherry l/abnormal. [facility] CypressKsszqfdRUPTHWKONV3217-04-30 15:09:00 Test Item Value Reference Range Interpretation Comments Atypical Lymphs (test code = Atypical 0.0 Lymphs) [facility] CypressPlbbqqiMXTXXASVTX6157-16-00 15:09:00 Test Item Value Reference Range Interpretation Comments Eosinophils (test code = 1.0 See_Comment [A utomated message] The Eosinophils) system which ge nerated this result tra nsmitted reference range : <=4.0. The reference r jose alfredo was not used to int erpret this result as normal/abnormal . [facility] CypressOatqfenTGYONMOMEA7917-25-71 15:09:00 Test Item Value Reference Range Interpretation Comments Monocytes (test code = Monocytes) 7.0 2.0-12.0 [facility] CypressQmwthcxTGAXFUEUFJ8677-37-86 15:09:00 Test Item Value Reference Range Interpretation Comments Segs (test code = Segs) 80.0 45.0-75.0 [facility] CypressUfahgjeCPJYCDYMRE4163-30-30 15:09:00 Test Item Value Reference Range Interpretation Comments Eosinophils # (test code 0.1 See_Comment [A utomated message] The = Eosinophils #) system whic h generated this result tra nsmitted reference range : <=0.5. The reference r jose alfredo was not used to int erpret this result as normal/abnormal . [facility] CypressSjwfonfGUKWFBDGAI2316-03-61 15:09:00 Test Item Value Reference Range Interpretation Comments Segs-Bands # (test code = Segs-Bands #) 11.8 1.5-8.1 [facility] CypressRtuxqywYIOOMHZKMD5367-61-36 15:09:00 Test Item Value Reference Range Interpretation Comments Monocytes # (test code 1.0 See_Comment [Aut omated message] The = Monocytes #) system which generated this result tra nsmitted reference range : <=0.8. The reference r jose alfredo was not used to int erpret this result as normal/abnormal . [facility] CypressKdtfpncQHDMZJVEWR7426-11-45 15:09:00 Test Item Value Reference Range Interpretation Comments Lymphocytes # (test code = Lymphocytes 1.1 1.0-5.5 #) [facility] CypressYfhtrzwTUTZHUBFLJ6256-32-44 15:09:00 Test Item Value Reference Range Interpretation Comments MCH (test code = MCH) 29.7 pg 27.0-31.0 [facility] CypressGwmrtbdLKDXHQPAYU4344-69-64 15:09:00 Test Item Value Reference Range Interpretation Comments Hct (test code = Hct) 32.8 42.0-54.0 [facility] CypressVoeyjcmCINCCKUCGF4765-69-29 15:09:00 Test Item Value Reference Range Interpretation Comments Hgb (test code = Hgb) 11.0 14.0-18.0 [facility] CypressBwtpufoZRSIYZMFMN0062-29-07 15:09:00 Test Item Value Reference Range Interpretation Comments RBC (test code = RBC) 3.68 4.70-6.10 [facility] CypressMwqsfefLCCQSTOPQG5418-17-63 15:09:00 Test Item Value Reference Range Interpretation Comments MCV (test code = MCV) 89.0 80.0-94.0 [facility] CypressLrstqwcFIEBCNFULD7247-41-32 15:09:00 Test Item Value Reference Range Interpretation Comments WBC (test code = WBC) 14.0 3.7-10.4 [facility] CypressUtacnhoPTOGEVYPUR3068-62-58 15:09:00 Test Item Value Reference Range Interpretation Comments RDW (test code = RDW) 14.4 11.5-14.5 [facility] CypressXyhqhdlHNLEZYAMQD0404-82-19 15:09:00 Test Item Value Reference Range Interpretation Comments Platelet (test code = Platelet) 336 133-450 [facility] CypressWeoxqryPHDYRKRPZS0666-29-25 15:09:00 Test Item Value Reference Range Interpretation Comments MPV (test code = MPV) 8.5 7.4-10.4 [facility] CypressHwtmcimMDWVNQDUMI1601-34-94 15:09:00 Test Item Value Reference Range Interpretation Comments MCHC (test code = MCHC) 33.4 32.0-36.0 [facility]2017-10-04 15:09:00 Test Item Value Reference Range Interpretation Comments B/C Ratio (test code = B/C Ratio) 15 6-25 [facility]2017-10-04 15:09:00 Test Item Value Reference Range Interpretation Comments Globulin (test code = Globulin) 3.7 2.7-4.2 [facility]2017-10-04 15:09:00 Test Item Value Reference Range Interpretation Comments A/G Ratio (test code = A/G Ratio) 0.5 0.7-1.6 [facility]2017-10-04 15:09:00 Test Item Value Reference Range Interpretation Comments AGAP (test code = AGAP) 10.8 10.0-20.0 [facility]2017-10-04 15:09:00 Test Item Value Reference Range Interpretation Comments eGFR (test code = eGFR) 83 [facility]2017-10-04 15:09:00 Test Item Value Reference Range Interpretation Comments Alk Phos (test code = Alk Phos) 43 39-136 [facility]2017-10-04 15:09:00 Test Item Value Reference Range Interpretation Comments Bili Total (test code = Bili Total) 0.3 0.2-1.3 [facility]2017-10-04 15:09:00 Test Item Value Reference Range Interpretation Comments Total Protein (test code = Total 5.4 6.4-8.4 Protein) [facility]2017-10-04 15:09:00 Test Item Value Reference Range Interpretation Comments Calcium Lvl (test code = Calcium Lvl) 8.9 8.5-10.5 [facility]2017-10-04 15:09:00 Test Item Value Reference Range Interpretation Comments Albumin Lvl (test code = Albumin Lvl) 1.7 3.5-5.0 [facility]2017-10-04 15:09:00 Test Item Value Reference Range Interpretation Comments CO2 (test code = CO2) 35 24-32 [facility]2017-10-04 15:09:00 Test Item Value Reference Range Interpretation Comments ALT (test code = ALT) 21 See_Comment [Auto mated message] The system which ge nerated this result transmit stuart reference range : <=65. The reference range was not used to interpr et this result as cherry l/abnormal. [facility]2017-10-04 15:09:00 Test Item Value Reference Range Interpretation Comments AST (test code = AST) 19 See_Comment [Auto mated message] The system which ge nerated this result transmit stuart reference range : <=37. The reference range was not used to interpr et this result as cherry l/abnormal. [facility]2017-10-04 15:09:00 Test Item Value Reference Range Interpretation Comments Creatinine Lvl (test code = Creatinine 0.91 0.50-1.40 Lvl) [facility]2017-10-04 15:09:00 Test Item Value Reference Range Interpretation Comments Sodium Lvl (test code = Sodium Lvl) 135 135-145 [facility]2017-10-04 15:09:00 Test Item Value Reference Range Interpretation Comments BUN (test code = BUN) 14 7-22 [facility]2017-10-04 15:09:00 Test Item Value Reference Range Interpretation Comments Chloride Lvl (test code = Chloride Lvl) 93 95-109 [facility]2017-10-04 15:09:00 Test Item Value Reference Range Interpretation Comments Potassium Lvl (test code = Potassium 3.8 3.5-5.1 Lvl) [facility]2017-10-04 15:09:00 Test Item Value Reference Range Interpretation Comments Glucose Lvl (test code = Glucose Lvl) 145 70-99 [facility] CypressOczcjohDVFFVCPEQT4501-71-39 15:09:00 Test Item Value Reference Range Interpretation Comments Spherocyte (test code = Moderate Spherocyte) *ABN*(06/04/17 10:09 AM) [facility] CypressWlcgeflTNFCYBLLCH4208-52-26 15:09:00 Test Item Value Reference Range Interpretation Comments RBC Morph (test code = Normal (06/04/17 10:09 RBC Morph) AM) [facility] CypressQevqhlwBRMHHXDUFR5645-45-17 15:09:00 Test Item Value Reference Range Interpretation Comments Large Plt (test code Moderate *ABN*(06/04/17 = Large Plt) 10:09 AM) [facility] CypressFsjdwwmDODJDJWRQK0253-30-68 15:09:00 Test Item Value Reference Range Interpretation Comments Toxic Gran (test code Moderate *ABN*(06/04/17 = Toxic Gran) 10:09 AM) [facility] CypressPlwjozqLUHDMSKMSK6572-50-86 15:09:00 Test Item Value Reference Range Interpretation Comments Lymphocytes (test code = Lymphocytes) 8.0 20.0-40.0 [facility] CypressObyqvtdPJQEROWPYH0097-38-29 15:09:00 Test Item Value Reference Range Interpretation Comments Bands (test code = 4.0 See_Comment [Automat ed message] The Bands) system which ge nerated this result transmit stuart reference range : <=11.0. The reference r jose alrfedo was not used to interpr et this result as cherry l/abnormal. [facility] CypressAfgamgqZDJOYRTSBY0559-86-58 15:09:00 Test Item Value Reference Range Interpretation Comments Atypical Lymphs (test code = Atypical 0.0 Lymphs) [facility] CypressVevtilqREVPPRQGEC0144-44-68 15:09:00 Test Item Value Reference Range Interpretation Comments Eosinophils (test code = 1.0 See_Comment [A utomated message] The Eosinophils) system which ge nerated this result tra nsmitted reference range : <=4.0. The reference r jose alfredo was not used to int erpret this result as normal/abnormal . [facility] CypressJtpmgbfDUFHKAPSQT3291-43-48 15:09:00 Test Item Value Reference Range Interpretation Comments Monocytes (test code = Monocytes) 7.0 2.0-12.0 [facility] CypressVgrrntyYWMLUXFQLL1639-97-92 15:09:00 Test Item Value Reference Range Interpretation Comments Segs (test code = Segs) 80.0 45.0-75.0 [facility] CypressCegvuxoFUXTFSMSGN0079-28-75 15:09:00 Test Item Value Reference Range Interpretation Comments Eosinophils # (test code 0.1 See_Comment [A utomated message] The = Eosinophils #) system whic h generated this result tra nsmitted reference range : <=0.5. The reference r jose alfredo was not used to int erpret this result as normal/abnormal . [facility] CypressXczjcxxLUGYWZLQCH3835-02-34 15:09:00 Test Item Value Reference Range Interpretation Comments Segs-Bands # (test code = Segs-Bands #) 11.8 1.5-8.1 [facility] CypressWuqbiqhZSXVOGLGVV3415-35-88 15:09:00 Test Item Value Reference Range Interpretation Comments Monocytes # (test code 1.0 See_Comment [Aut omated message] The = Monocytes #) system which generated this result tra nsmitted reference range : <=0.8. The reference r jose alfredo was not used to int erpret this result as normal/abnormal . [facility] CypressIucuzeoMEJCNJCWWU0836-55-58 15:09:00 Test Item Value Reference Range Interpretation Comments Lymphocytes # (test code = Lymphocytes 1.1 1.0-5.5 #) [facility] CypressJlnrgzaJBNFWNCXSP7828-03-07 15:09:00 Test Item Value Reference Range Interpretation Comments MCH (test code = MCH) 29.7 pg 27.0-31.0 [facility] CypressKsdvjnxCWAUZISHEF0658-50-66 15:09:00 Test Item Value Reference Range Interpretation Comments Hct (test code = Hct) 32.8 42.0-54.0 [facility] CypressLtodqyvQNVLSCVOYH5170-96-38 15:09:00 Test Item Value Reference Range Interpretation Comments Hgb (test code = Hgb) 11.0 14.0-18.0 [facility] CypressNafkslsJHYPDJCOAM3444-61-69 15:09:00 Test Item Value Reference Range Interpretation Comments RBC (test code = RBC) 3.68 4.70-6.10 [facility] CypressVgarshuMANMHJATOA8053-46-88 15:09:00 Test Item Value Reference Range Interpretation Comments MCV (test code = MCV) 89.0 80.0-94.0 [facility] CypressCtalvurRODVPFWZZX0375-15-91 15:09:00 Test Item Value Reference Range Interpretation Comments WBC (test code = WBC) 14.0 3.7-10.4 [facility] CypressIffvfykQFAJQARDTS9707-07-21 15:09:00 Test Item Value Reference Range Interpretation Comments RDW (test code = RDW) 14.4 11.5-14.5 [facility] CypressVvunhhrJLYVGLJCOJ9005-38-18 15:09:00 Test Item Value Reference Range Interpretation Comments Platelet (test code = Platelet) 336 133-450 [facility] CypressDgpuurbYKZNQACGVF2558-56-09 15:09:00 Test Item Value Reference Range Interpretation Comments MPV (test code = MPV) 8.5 7.4-10.4 [facility] CypressOwqaulcVXJDANXDCY5251-57-26 15:09:00 Test Item Value Reference Range Interpretation Comments MCHC (test code = MCHC) 33.4 32.0-36.0 [facility] CypressTreexreRWMZBSIILD1928-69-89 20:40:00 Test Item Value Reference Range Interpretation Comments Basophils (test code = 0.4 See_Comment [Aut omated message] The Basophils) system which ge nerated this result tra nsmitted reference range : <=1.0. The reference r jose alfredo was not used to int erpret this result as normal/abnormal . [facility] CypressFzsjchaBNDSJVDPPG8985-40-23 20:40:00 Test Item Value Reference Range Interpretation Comments RBC Morph (test code = Normal (06/03/17 3:40 RBC Morph) PM) [facility] CypressQsbeipoCXBRVGPFBJ4904-59-97 20:40:00 Test Item Value Reference Range Interpretation Comments Plt Morph (test code = Normal (06/03/17 3:40 Plt Morph) PM) [facility] CypressFzvbtmnHFQMBGEAUZ4075-15-14 20:40:00 Test Item Value Reference Range Interpretation Comments Basophils # (test code 0.1 See_Comment [Aut omated message] The = Basophils #) system which generated this result tra nsmitted reference range : <=0.2. The reference r jose alfredo was not used to int erpret this result as normal/abnormal . [facility] CypressPxghugvJMUJRFXUMG1925-52-21 20:40:00 Test Item Value Reference Range Interpretation Comments Basophils (test code = 0.4 See_Comment [Aut omated message] The Basophils) system which ge nerated this result tra nsmitted reference range : <=1.0. The reference r jose alfredo was not used to int erpret this result as normal/abnormal . [facility] CypressTvqbwchZNXBEHPLVR3320-70-45 20:40:00 Test Item Value Reference Range Interpretation Comments RBC Morph (test code = Normal (06/03/17 3:40 RBC Morph) PM) [facility] CypressFprymsrKDIDAFROXG0077-78-12 20:40:00 Test Item Value Reference Range Interpretation Comments Plt Morph (test code = Normal (06/03/17 3:40 Plt Morph) PM) [facility] CypressZvczjswKBQTNQMTZG6797-91-87 20:40:00 Test Item Value Reference Range Interpretation Comments Basophils # (test code 0.1 See_Comment [Aut omated message] The = Basophils #) system which generated this result tra nsmitted reference range : <=0.2. The reference r jose alfredo was not used to int erpret this result as normal/abnormal . [facility] CypressQsrnzxtRNDOSVWURO9545-76-77 20:40:00 Test Item Value Reference Range Interpretation Comments Basophils (test code = 0.4 See_Comment [Aut omated message] The Basophils) system which ge nerated this result tra nsmitted reference range : <=1.0. The reference r jose alfredo was not used to int erpret this result as normal/abnormal . [facility] CypressKvgpclfHKTONXJJFE3006-94-66 20:40:00 Test Item Value Reference Range Interpretation Comments RBC Morph (test code = Normal (06/03/17 3:40 RBC Morph) PM) [facility] CypressOquttitURLBORMSRD3451-20-19 20:40:00 Test Item Value Reference Range Interpretation Comments Plt Morph (test code = Normal (06/03/17 3:40 Plt Morph) PM) [facility] CypressLtamzdlZCRSNPCUXM2837-96-54 20:40:00 Test Item Value Reference Range Interpretation Comments Basophils # (test code 0.1 See_Comment [Aut omated message] The = Basophils #) system which generated this result tra nsmitted reference range : <=0.2. The reference r jose alfredo was not used to int erpret this result as normal/abnormal . [facility] CypressBrsuqrpPMXWFGABTQ0813-12-78 09:41:00 Test Item Value Reference Range Interpretation Comments Metamyelocytes (test code 2.0 See_Comment [ Automated message] = Metamyelocytes) The system which generated this result transmitted ref erence range: <=1.0. T he reference range was not used to int erpret this result as normal/abnormal . [facility] CypressFltgriiKZTHPABAAP9510-41-99 09:41:00 Test Item Value Reference Range Interpretation Comments Atypical Lymphs (test code = Atypical 0.0 Lymphs) [facility] CypressIbmtpnyCZUYFIWLKS2879-12-61 09:41:00 Test Item Value Reference Range Interpretation Comments Bands (test code = 10.0 See_Comment [Automat ed message] The Bands) system which ge nerated this result transmit stuart reference range : <=11.0. The reference r jose alfredo was not used to interpr et this result as cherry l/abnormal. [facility] CypressHlolynoJQOQJATJZG9869-35-48 09:41:00 Test Item Value Reference Range Interpretation Comments Plt Morph (test code = Normal (05/31/17 4:41 Plt Morph) AM) [facility] CypressBitfybbPHQJKSJIET2509-26-37 09:41:00 Test Item Value Reference Range Interpretation Comments RBC Morph (test code = Normal (05/31/17 4:41 RBC Morph) AM) [facility] CypressDutorjmMHVKBJENRS4695-42-25 09:41:00 Test Item Value Reference Range Interpretation Comments Toxic Gran (test code Moderate *ABN*(05/31/17 = Toxic Gran) 4:41 AM) [facility] CypressVnkfqkgBUBFNAMYCN6160-30-39 09:41:00 Test Item Value Reference Range Interpretation Comments Tot Cell Ct (test code = Tot Cell Ct) 100 1 [facility] CypressXucbxbyXEHORYSMCN1846-28-21 09:41:00 Test Item Value Reference Range Interpretation Comments Metamyelocytes (test code 2.0 See_Comment [ Automated message] = Metamyelocytes) The system which generated this result transmitted ref erence range: <=1.0. T he reference range was not used to int erpret this result as normal/abnormal . [facility] CypressOrkkxrhAIZQWIFCTT2056-43-10 09:41:00 Test Item Value Reference Range Interpretation Comments Atypical Lymphs (test code = Atypical 0.0 Lymphs) [facility] CypressVojbcxnANBVZOADYC8752-98-92 09:41:00 Test Item Value Reference Range Interpretation Comments Bands (test code = 10.0 See_Comment [Automat ed message] The Bands) system which ge nerated this result transmit stuart reference range : <=11.0. The reference r jose alfredo was not used to interpr et this result as cherry l/abnormal. [facility] CypressXbyayvqFYTCTQCDXX1141-91-78 09:41:00 Test Item Value Reference Range Interpretation Comments Plt Morph (test code = Normal (05/31/17 4:41 Plt Morph) AM) [facility] CypressIwvrluzIOFREOOXVG6617-16-40 09:41:00 Test Item Value Reference Range Interpretation Comments RBC Morph (test code = Normal (05/31/17 4:41 RBC Morph) AM) [facility] CypressRxtofdlGZTWQUVZRC4807-62-65 09:41:00 Test Item Value Reference Range Interpretation Comments Toxic Gran (test code Moderate *ABN*(05/31/17 = Toxic Gran) 4:41 AM) [facility] CypressWqrehqjCTZHENQLKJ8147-40-92 09:41:00 Test Item Value Reference Range Interpretation Comments Tot Cell Ct (test code = Tot Cell Ct) 100 1 [facility] CypressJvthkoxNLUHOMXRUN3191-81-39 09:41:00 Test Item Value Reference Range Interpretation Comments Metamyelocytes (test code 2.0 See_Comment [ Automated message] = Metamyelocytes) The system which generated this result transmitted ref erence range: <=1.0. T he reference range was not used to int erpret this result as normal/abnormal . [facility] CypressEiiinzlUUXMUZSTKY8304-12-32 09:41:00 Test Item Value Reference Range Interpretation Comments Atypical Lymphs (test code = Atypical 0.0 Lymphs) [facility] CypressSfhvbskMASWSCMCLF0102-59-13 09:41:00 Test Item Value Reference Range Interpretation Comments Bands (test code = 10.0 See_Comment [Automat ed message] The Bands) system which ge nerated this result transmit stuart reference range : <=11.0. The reference r jose alfredo was not used to interpr et this result as cherry l/abnormal. [facility] CypressXqgizpeOGFUJICHQU3020-05-57 09:41:00 Test Item Value Reference Range Interpretation Comments Plt Morph (test code = Normal (05/31/17 4:41 Plt Morph) AM) [facility] CypressNbsvhulQSKOZDHKYY0789-53-43 09:41:00 Test Item Value Reference Range Interpretation Comments RBC Morph (test code = Normal (05/31/17 4:41 RBC Morph) AM) [facility] CypressDzfnhwiAURSJXERHZ6062-63-90 09:41:00 Test Item Value Reference Range Interpretation Comments Toxic Gran (test code Moderate *ABN*(05/31/17 = Toxic Gran) 4:41 AM) [facility] CypressUunrercCKABXRPGDE6917-52-87 09:41:00 Test Item Value Reference Range Interpretation Comments Tot Cell Ct (test code = Tot Cell Ct) 100 1 [facility]2017-09-28 09:27:00 Test Item Value Reference Range Interpretation Comments B/C Ratio (test code = B/C Ratio) 38 6-25 [facility]2017-09-28 09:27:00 Test Item Value Reference Range Interpretation Comments A/G Ratio (test code = A/G Ratio) 0.4 0.7-1.6 [facility]2017-09-28 09:27:00 Test Item Value Reference Range Interpretation Comments Globulin (test code = Globulin) 3.5 2.7-4.2 [facility]2017-09-28 09:27:00 Test Item Value Reference Range Interpretation Comments ALT (test code = ALT) 16 See_Comment [Auto mated message] The system which ge nerated this result transmit stuart reference range : <=65. The reference range was not used to interpr et this result as cherry l/abnormal. [facility]2017-09-28 09:27:00 Test Item Value Reference Range Interpretation Comments Total Protein (test code = Total 5.0 6.4-8.4 Protein) [facility]2017-09-28 09:27:00 Test Item Value Reference Range Interpretation Comments Albumin Lvl (test code = Albumin Lvl) 1.5 3.5-5.0 [facility]2017-09-28 09:27:00 Test Item Value Reference Range Interpretation Comments AST (test code = AST) 18 See_Comment [Auto mated message] The system which ge nerated this result transmit stuart reference range : <=37. The reference range was not used to interpr et this result as cherry l/abnormal. [facility]2017-09-28 09:27:00 Test Item Value Reference Range Interpretation Comments Bili Total (test code = Bili Total) 0.4 0.2-1.3 [facility]2017-09-28 09:27:00 Test Item Value Reference Range Interpretation Comments Alk Phos (test code = Alk Phos) 39 39-136 [place] [id number] 09:27:00 Test Item Value Reference Range Interpretation Comments B/C Ratio (test code = B/C Ratio) 38 6-25 [facility]2017-09-28 09:27:00 Test Item Value Reference Range Interpretation Comments A/G Ratio (test code = A/G Ratio) 0.4 0.7-1.6 [facility]2017-09-28 09:27:00 Test Item Value Reference Range Interpretation Comments Globulin (test code = Globulin) 3.5 2.7-4.2 [facility]2017-09-28 09:27:00 Test Item Value Reference Range Interpretation Comments ALT (test code = ALT) 16 See_Comment [Auto mated message] The system which ge nerated this result transmit stuart reference range : <=65. The reference range was not used to interpr et this result as cherry l/abnormal. [facility]2017-09-28 09:27:00 Test Item Value Reference Range Interpretation Comments Total Protein (test code = Total 5.0 6.4-8.4 Protein) [facility]2017-09-28 09:27:00 Test Item Value Reference Range Interpretation Comments Albumin Lvl (test code = Albumin Lvl) 1.5 3.5-5.0 [facility]2017-09-28 09:27:00 Test Item Value Reference Range Interpretation Comments AST (test code = AST) 18 See_Comment [Auto mated message] The system which ge nerated this result transmit stuart reference range : <=37. The reference range was not used to interpr et this result as cherry l/abnormal. [facility]2017-09-28 09:27:00 Test Item Value Reference Range Interpretation Comments Bili Total (test code = Bili Total) 0.4 0.2-1.3 [facility]2017-09-28 09:27:00 Test Item Value Reference Range Interpretation Comments Alk Phos (test code = Alk Phos) 39 39-136 [facility]2017-09-28 09:27:00 Test Item Value Reference Range Interpretation Comments B/C Ratio (test code = B/C Ratio) 38 6-25 [facility]2017-09-28 09:27:00 Test Item Value Reference Range Interpretation Comments A/G Ratio (test code = A/G Ratio) 0.4 0.7-1.6 [facility]2017-09-28 09:27:00 Test Item Value Reference Range Interpretation Comments Globulin (test code = Globulin) 3.5 2.7-4.2 [place] [id number] 09:27:00 Test Item Value Reference Range Interpretation Comments ALT (test code = ALT) 16 See_Comment [Auto mated message] The system which ge nerated this result transmit stuart reference range : <=65. The reference range was not used to interpr et this result as cherry l/abnormal. [facility]2017-09-28 09:27:00 Test Item Value Reference Range Interpretation Comments Total Protein (test code = Total 5.0 6.4-8.4 Protein) [facility]2017-09-28 09:27:00 Test Item Value Reference Range Interpretation Comments Albumin Lvl (test code = Albumin Lvl) 1.5 3.5-5.0 [facility]2017-09-28 09:27:00 Test Item Value Reference Range Interpretation Comments AST (test code = AST) 18 See_Comment [Auto mated message] The system which ge nerated this result transmit stuart reference range : <=37. The reference range was not used to interpr et this result as cherry l/abnormal. [facility]2017-09-28 09:27:00 Test Item Value Reference Range Interpretation Comments Bili Total (test code = Bili Total) 0.4 0.2-1.3 [facility]2017-09-28 09:27:00 Test Item Value Reference Range Interpretation Comments Alk Phos (test code = Alk Phos) 39 39-136 [id number] 07:37:00 Test Item Value Reference Range Interpretation Comments Plt Morph (test code = Normal (05/28/17 2:37 Plt Morph) AM) [id number] 07:37:00 Test Item Value Reference Range Interpretation Comments Plt Morph (test code = Normal (05/28/17 2:37 Plt Morph) AM) [id number] 07:37:00 Test Item Value Reference Range Interpretation Comments Plt Morph (test code = Normal (05/28/17 2:37 Plt Morph) AM) [facility] AND [id number] 02:42:00 Test Item Value Reference Range Interpretation Comments UA Mucus (test code = UA Mucus) Few /[facility]F [facility] AND [id number] 02:42:00 Test Item Value Reference Range Interpretation Comments UA Bacteria (test code = UA Occasional /HPF Bacteria) [facility] AND [id number] 02:42:00 Test Item Value Reference Range Interpretation Comments UA Amorph Sydni (test code = UA Moderate /HPF Amorph Sydni) [facility] AND [id number] 02:42:00 Test Item Value Reference Range Interpretation Comments UA Sq Epi (test code = UA Sq Occasional /LPF Epi) [facility] AND [id number] 02:42:00 Test Item Value Reference Range Interpretation Comments UA RBC (test code = 6-10 /HPF See_Comment [Automa stuart message] The UA RBC) system which ge nerated this result tra nsmitted reference range : <=2. The reference range was not used to interpr et this result as normal/abnormal . [facility] AND [id number] 02:42:00 Test Item Value Reference Range Interpretation Comments UA WBC (test code = 0-2 /HPF See_Comment [Automa stuart message] The UA WBC) system which ge nerated this result tra nsmitted reference range : <=5. The reference range was not used to interpr et this result as cherry l/abnormal. [facility] AND [id number] 02:42:00 Test Item Value Reference Range Interpretation Comments UA Leuk Est (test Negative (05/24/17 9:42 code = UA Leuk Est) PM) [facility] AND [id number] 02:42:00 Test Item Value Reference Range Interpretation Comments Micro? (test code = Performed (05/24/17 9:42 Micro?) PM) [facility] AND [id number] 02:42:00 Test Item Value Reference Range Interpretation Comments UA Urobilinogen (test code = UA 1.0 0.1-1.0 Urobilinogen) [facility] AND [id number] 02:42:00 Test Item Value Reference Range Interpretation Comments UA Nitrite (test code Negative (05/24/17 9:42 = UA Nitrite) PM) [facility] AND [id number] 02:42:00 Test Item Value Reference Range Interpretation Comments UA Protein (test code = UA Protein) 30 mg/dL [facility] AND [id number] 02:42:00 Test Item Value Reference Range Interpretation Comments UA Bili (test code = Small *ABN*(05/24/17 UA Bili) 9:42 PM) [facility] AND [id number] 02:42:00 Test Item Value Reference Range Interpretation Comments UA Blood (test code = Moderate *ABN*(05/24/17 UA Blood) 9:42 PM) [facility] AND [id number] 02:42:00 Test Item Value Reference Range Interpretation Comments UA Glucose (test code Negative (05/24/17 9:42 = UA Glucose) PM) [facility] AND [id number] 02:42:00 Test Item Value Reference Range Interpretation Comments UA Ketones (test code = Trace *ABN*(05/24/17 UA Ketones) 9:42 PM) [facility] AND [id number] 02:42:00 Test Item Value Reference Range Interpretation Comments UA Spec Grav (test >=1.030 *ABN*(05/24/17 code = UA Spec Grav) 9:42 PM) [facility] AND [id number] 02:42:00 Test Item Value Reference Range Interpretation Comments UA pH (test code = UA pH) 5.0 1 5.0-8.0 [facility] AND [id number] 02:42:00 Test Item Value Reference Range Interpretation Comments UA Color (test code = Yellow *NA*(05/24/17 UA Color) 9:42 PM) [facility] AND [id number] 02:42:00 Test Item Value Reference Range Interpretation Comments UA Turbidity (test code Cloudy *ABN*(05/24/17 = UA Turbidity) 9:42 PM) [facility] AND [id number] 02:42:00 Test Item Value Reference Range Interpretation Comments UA Mucus (test code = UA Mucus) Few /LPF [facility] AND [id number] 02:42:00 Test Item Value Reference Range Interpretation Comments UA Bacteria (test code = UA Occasional /HPF Bacteria) [facility] AND [id number] 02:42:00 Test Item Value Reference Range Interpretation Comments UA Amorph Sydni (test code = UA Moderate /HPF Amorph Sydni) [facility] AND [id number] 02:42:00 Test Item Value Reference Range Interpretation Comments UA Sq Epi (test code = UA Sq Occasional /LPF Epi) [facility] AND [id number] 02:42:00 Test Item Value Reference Range Interpretation Comments UA RBC (test code = 6-10 /HPF See_Comment [Automa stuart message] The UA RBC) system which ge nerated this result tra nsmitted reference range : <=2. The reference range was not used to interpr et this result as normal/abnormal . [facility] AND [id number] 02:42:00 Test Item Value Reference Range Interpretation Comments UA WBC (test code = 0-2 /HPF See_Comment [Automa stuart message] The UA WBC) system which ge nerated this result tra nsmitted reference range : <=5. The reference range was not used to interpr et this result as cherry l/abnormal. [facility] AND [id number] 02:42:00 Test Item Value Reference Range Interpretation Comments UA Leuk Est (test Negative (05/24/17 9:42 code = UA Leuk Est) PM) [facility] AND [id number] 02:42:00 Test Item Value Reference Range Interpretation Comments Micro? (test code = Performed (05/24/17 9:42 Micro?) PM) [facility] AND [id number] 02:42:00 Test Item Value Reference Range Interpretation Comments UA Urobilinogen (test code = UA 1.0 0.1-1.0 Urobilinogen) [facility] AND [id number] 02:42:00 Test Item Value Reference Range Interpretation Comments UA Nitrite (test code Negative (05/24/17 9:42 = UA Nitrite) PM) [facility] AND [id number] 02:42:00 Test Item Value Reference Range Interpretation Comments UA Protein (test code = UA Protein) 30 mg/dL [facility] AND [id number] 02:42:00 Test Item Value Reference Range Interpretation Comments UA Bili (test code = Small *ABN*(05/24/17 UA Bili) 9:42 PM) [facility] AND [id number] 02:42:00 Test Item Value Reference Range Interpretation Comments UA Blood (test code = Moderate *ABN*(05/24/17 UA Blood) 9:42 PM) [facility] AND [id number] 02:42:00 Test Item Value Reference Range Interpretation Comments UA Glucose (test code Negative (05/24/17 9:42 = UA Glucose) PM) [facility] AND [id number] 02:42:00 Test Item Value Reference Range Interpretation Comments UA Ketones (test code = Trace *ABN*(05/24/17 UA Ketones) 9:42 PM) [facility] AND [id number] 02:42:00 Test Item Value Reference Range Interpretation Comments UA Spec Grav (test >=1.030 *ABN*(05/24/17 code = UA Spec Grav) 9:42 PM) [facility] AND [id number] 02:42:00 Test Item Value Reference Range Interpretation Comments UA pH (test code = UA pH) 5.0 1 5.0-8.0 [facility] AND [id number] 02:42:00 Test Item Value Reference Range Interpretation Comments UA Color (test code = Yellow *NA*(05/24/17 UA Color) 9:42 PM) [facility] AND [id number] 02:42:00 Test Item Value Reference Range Interpretation Comments UA Turbidity (test code Cloudy *ABN*(05/24/17 = UA Turbidity) 9:42 PM) [facility] AND [id number] 02:42:00 Test Item Value Reference Range Interpretation Comments UA Mucus (test code = UA Mucus) Few /LPF [facility] AND [id number] 02:42:00 Test Item Value Reference Range Interpretation Comments UA Bacteria (test code = UA Occasional /HPF Bacteria) [facility] AND [id number] 02:42:00 Test Item Value Reference Range Interpretation Comments UA Amorph Sydni (test code = UA Moderate /HPF Amorph Sydni) [facility] AND [id number] 02:42:00 Test Item Value Reference Range Interpretation Comments UA Sq Epi (test code = UA Sq Occasional /LPF Epi) [facility] [id number] 02:42:00 Test Item Value Reference Range Interpretation Comments UA RBC (test code = 6-10 /HPF See_Comment [Automa stuart message] The UA RBC) system which ge nerated this result tra nsmitted reference range : <=2. The reference range was not used to interpr et this result as normal/abnormal . [facility] [id number] 02:42:00 Test Item Value Reference Range Interpretation Comments UA WBC (test code = 0-2 /HPF See_Comment [Automa stuart message] The UA WBC) system which ge nerated this result tra nsmitted reference range : <=5. The reference range was not used to interpr et this result as cherry l/abnormal. [facility] AND [id number] 02:42:00 Test Item Value Reference Range Interpretation Comments UA Leuk Est (test Negative (05/24/17 9:42 code = UA Leuk Est) PM) [facility] AND [id number] 02:42:00 Test Item Value Reference Range Interpretation Comments Micro? (test code = Performed (05/24/17 9:42 Micro?) PM) [facility] [id number] 02:42:00 Test Item Value Reference Range Interpretation Comments UA Urobilinogen (test code = UA 1.0 0.1-1.0 Urobilinogen) [facility] AND [id number] 02:42:00 Test Item Value Reference Range Interpretation Comments UA Nitrite (test code Negative (05/24/17 9:42 = UA Nitrite) PM) [facility] [id number] 02:42:00 Test Item Value Reference Range Interpretation Comments UA Protein (test code = UA Protein) 30 mg/dL [facility] AND [id number] 02:42:00 Test Item Value Reference Range Interpretation Comments UA Bili (test code = Small *ABN*(05/24/17 UA Bili) 9:42 PM) [facility] [id number] 02:42:00 Test Item Value Reference Range Interpretation Comments UA Blood (test code = Moderate *ABN*(05/24/17 UA Blood) 9:42 PM) [facility] AND [id number] 02:42:00 Test Item Value Reference Range Interpretation Comments UA Glucose (test code Negative (05/24/17 9:42 = UA Glucose) PM) [facility] AND [id number] 02:42:00 Test Item Value Reference Range Interpretation Comments UA Ketones (test code = Trace *ABN*(05/24/17 UA Ketones) 9:42 PM) [facility] AND [id number] 02:42:00 Test Item Value Reference Range Interpretation Comments UA Spec Grav (test >=1.030 *ABN*(05/24/17 code = UA Spec Grav) 9:42 PM) [facility] AND [id number] 02:42:00 Test Item Value Reference Range Interpretation Comments UA pH (test code = UA pH) 5.0 1 5.0-8.0 [facility] AND [id number] 02:42:00 Test Item Value Reference Range Interpretation Comments UA Color (test code = Yellow *NA*(05/24/17 UA Color) 9:42 PM) [facility] AND [id number] 02:42:00 Test Item Value Reference Range Interpretation Comments UA Turbidity (test code Cloudy *ABN*(05/24/17 = UA Turbidity) 9:42 PM) [facility]2017-09-23 15:55:00 Test Item Value Reference Range Interpretation Comments Procalcitonin Lvl (test 14.55 See_Comment [Au tomated message] code = Procalcitonin Lvl) Th e system which generated this result transmitted ref erence range: <=0.10. The reference range was not used to interpr et this result as normal/abnormal . [facility] [id number] 15:55:00 Test Item Value Reference Range Interpretation Comments Lactic Acid Lvl (test code = Lactic 1.2 0.5-2.2 Acid Lvl) [facility]2017-09-23 15:55:00 Test Item Value Reference Range Interpretation Comments Procalcitonin Lvl (test 14.55 See_Comment [Au tomated message] code = Procalcitonin Lvl) e system which generated this result transmitted ref erence range: <=0.10. The reference range was not used to interpr et this result as normal/abnormal . [facility]2017-09-23 15:55:00 Test Item Value Reference Range Interpretation Comments Lactic Acid Lvl (test code = Lactic 1.2 0.5-2.2 Acid Lvl) [facility]2017-09-23 15:55:00 Test Item Value Reference Range Interpretation Comments Procalcitonin Lvl (test 14.55 See_Comment [Au tomated message] code = Procalcitonin Lvl) e system which generated this result transmitted ref erence range: <=0.10. The reference range was not used to interpr et this result as normal/abnormal . [facility]2017-09-23 15:55:00 Test Item Value Reference Range Interpretation Comments Lactic Acid Lvl (test code = Lactic 1.2 0.5-2.2 Acid Lvl) [facility] AND [id number] 12:31:00 Test Item Value Reference Range Interpretation Comments UA Ketones (test code = UA Negative mg/dL Ketones) [facility] AND [id number] 12:31:00 Test Item Value Reference Range Interpretation Comments UA Bili (test code = Negative *NA*(05/23/17 UA Bili) 7:31 AM) [facility] AND [id number] 12:31:00 Test Item Value Reference Range Interpretation Comments UA Blood (test code = Negative (05/23/17 7:31 UA Blood) AM) [facility] AND [id number] 12:31:00 Test Item Value Reference Range Interpretation Comments UA Nitrite (test code Negative (05/23/17 7:31 = UA Nitrite) AM) [facility] AND [id number] 12:31:00 Test Item Value Reference Range Interpretation Comments UA Urobilinogen (test code = UA 2.0 0.1-1.0 Urobilinogen) [facility] AND [id number] 12:31:00 Test Item Value Reference Range Interpretation Comments UA Leuk Est (test Negative (05/23/17 7:31 code = UA Leuk Est) AM) [facility] AND [id number] 12:31:00 Test Item Value Reference Range Interpretation Comments UA WBC (test code = 1 See_Comment [Automa stuart message] The UA WBC) system which ge nerated this result transmit stuart reference range : <=5. The reference range was not used to interpr et this result as cherry l/abnormal. [facility] AND [id number] 12:31:00 Test Item Value Reference Range Interpretation Comments UA Sq Epi (test code = UA Sq Occasional /LPF Epi) [facility] AND [id number] 12:31:00 Test Item Value Reference Range Interpretation Comments UA Mucus (test code = UA Mucus) Few /LPF [facility] AND [id number] 12:31:00 Test Item Value Reference Range Interpretation Comments UA RBC (test code = 2 See_Comment [Automa stuart message] The UA RBC) system which ge nerated this result transmit stuart reference range : <=2. The reference range was not used to interpr et this result as cherry l/abnormal. [facility] AND [id number] 12:31:00 Test Item Value Reference Range Interpretation Comments UA Glucose (test code = UA Glucose) 150 mg/dL [facility] AND [id number] 12:31:00 Test Item Value Reference Range Interpretation Comments UA Protein (test code = UA Protein) 100 mg/dL [facility] AND [id number] 12:31:00 Test Item Value Reference Range Interpretation Comments UA Spec Grav (test code = UA Spec Grav) 1.020 [facility] AND [id number] 12:31:00 Test Item Value Reference Range Interpretation Comments UA pH (test code = UA pH) 5.0 5.0-8.0 [facility] AND [id number] 12:31:00 Test Item Value Reference Range Interpretation Comments UA Color (test code = Yellow *NA*(05/23/17 UA Color) 7:31 AM) [facility] AND [id number] 12:31:00 Test Item Value Reference Range Interpretation Comments UA Turbidity (test code = Clear (05/23/17 7:31 UA Turbidity) AM) [facility] AND [id number] 12:31:00 Test Item Value Reference Range Interpretation Comments UA Ketones (test code = UA Negative mg/dL Ketones) [facility] AND [id number] 12:31:00 Test Item Value Reference Range Interpretation Comments UA Bili (test code = Negative *NA*(05/23/17 UA Bili) 7:31 AM) [facility] AND [id number] 12:31:00 Test Item Value Reference Range Interpretation Comments UA Blood (test code = Negative (05/23/17 7:31 UA Blood) AM) [facility] AND [id number] 12:31:00 Test Item Value Reference Range Interpretation Comments UA Nitrite (test code Negative (05/23/17 7:31 = UA Nitrite) AM) [facility] AND [id number] 12:31:00 Test Item Value Reference Range Interpretation Comments UA Urobilinogen (test code = UA 2.0 0.1-1.0 Urobilinogen) [facility] AND [id number] 12:31:00 Test Item Value Reference Range Interpretation Comments UA Leuk Est (test Negative (05/23/17 7:31 code = UA Leuk Est) AM) [facility] AND [id number] 12:31:00 Test Item Value Reference Range Interpretation Comments UA WBC (test code = 1 See_Comment [Automa stuart message] The UA WBC) system which ge nerated this result transmit stuart reference range : <=5. The reference range was not used to interpr et this result as cherry l/abnormal. [facility] AND [id number] 12:31:00 Test Item Value Reference Range Interpretation Comments UA Sq Epi (test code = UA Sq Occasional /LPF Epi) [facility] AND [id number] 12:31:00 Test Item Value Reference Range Interpretation Comments UA Mucus (test code = UA Mucus) Few /LPF [facility] AND [id number] 12:31:00 Test Item Value Reference Range Interpretation Comments UA RBC (test code = 2 See_Comment [Automa stuart message] The UA RBC) system which ge nerated this result transmit stuart reference range : <=2. The reference range was not used to interpr et this result as cherry l/abnormal. [facility] AND [id number] 12:31:00 Test Item Value Reference Range Interpretation Comments UA Glucose (test code = UA Glucose) 150 mg/dL [facility] AND [id number] 12:31:00 Test Item Value Reference Range Interpretation Comments UA Protein (test code = UA Protein) 100 mg/dL [facility] AND [id number] 12:31:00 Test Item Value Reference Range Interpretation Comments UA Spec Grav (test code = UA Spec Grav) 1.020 [facility] AND [id number] 12:31:00 Test Item Value Reference Range Interpretation Comments UA pH (test code = UA pH) 5.0 5.0-8.0 [facility] AND [id number] 12:31:00 Test Item Value Reference Range Interpretation Comments UA Color (test code = Yellow *NA*(05/23/17 UA Color) 7:31 AM) [facility] AND [id number] 12:31:00 Test Item Value Reference Range Interpretation Comments UA Turbidity (test code = Clear (05/23/17 7:31 UA Turbidity) AM) [facility] AND [id number] 12:31:00 Test Item Value Reference Range Interpretation Comments UA Ketones (test code = UA Negative mg/dL Ketones) [facility] AND [id number] 12:31:00 Test Item Value Reference Range Interpretation Comments UA Bili (test code = Negative *NA*(05/23/17 UA Bili) 7:31 AM) [facility] AND [id number] 12:31:00 Test Item Value Reference Range Interpretation Comments UA Blood (test code = Negative (05/23/17 7:31 UA Blood) AM) [facility] AND [id number] 12:31:00 Test Item Value Reference Range Interpretation Comments UA Nitrite (test code Negative (05/23/17 7:31 = UA Nitrite) AM) [facility] AND [id number] 12:31:00 Test Item Value Reference Range Interpretation Comments UA Urobilinogen (test code = UA 2.0 0.1-1.0 Urobilinogen) [facility] AND [id number] 12:31:00 Test Item Value Reference Range Interpretation Comments UA Leuk Est (test Negative (05/23/17 7:31 code = UA Leuk Est) AM) [facility] AND [id number] 12:31:00 Test Item Value Reference Range Interpretation Comments UA WBC (test code = 1 See_Comment [Automa stuart message] The UA WBC) system which ge nerated this result transmit stuart reference range : <=5. The reference range was not used to interpr et this result as cherry l/abnormal. [facility] AND [id number] 12:31:00 Test Item Value Reference Range Interpretation Comments UA Sq Epi (test code = UA Sq Occasional /LPF Epi) [facility] AND [id number] 12:31:00 Test Item Value Reference Range Interpretation Comments UA Mucus (test code = UA Mucus) Few /LPF [facility]annJE[facility] AND [id number] 12:31:00 Test Item Value Reference Range Interpretation Comments UA RBC (test code = 2 See_Comment [Automa stuart message] The UA RBC) system which ge nerated this result transmit stuart reference range : <=2. The reference range was not used to interpr et this result as cherry l/abnormal. [facility] AND [id number] 12:31:00 Test Item Value Reference Range Interpretation Comments UA Glucose (test code = UA Glucose) 150 mg/dL [facility] AND [id number] 12:31:00 Test Item Value Reference Range Interpretation Comments UA Protein (test code = UA Protein) 100 mg/dL [facility]JE[facility] AND [id number] 12:31:00 Test Item Value Reference Range Interpretation Comments UA Spec Grav (test code = UA Spec Grav) 1.020 [facility] AND [id number] 12:31:00 Test Item Value Reference Range Interpretation Comments UA pH (test code = UA pH) 5.0 5.0-8.0 [facility]JE[facility] AND [id number] 12:31:00 Test Item Value Reference Range Interpretation Comments UA Color (test code = Yellow *NA*(05/23/17 UA Color) 7:31 AM) [facility] AND [id number] 12:31:00 Test Item Value Reference Range Interpretation Comments UA Turbidity (test code = Clear (05/23/17 7:31 UA Turbidity) AM) [facility] DorindaannCARDIAC [id number] 11:12:00 Test Item Value Reference Range Interpretation Comments BNP (test code = BNP) 76 [facility]villeannGenZ[facility] [employer] [facility] [id number] 11:12:00 Test Item Value Reference Range Interpretation Comments Magnesium Lvl (test code = Magnesium 1.6 1.8-2.4 Lvl) [facility] StephenvilleannCHEM [id number] 11:12:00 Test Item Value Reference Range Interpretation Comments Lipase Lvl (test code = Lipase Lvl) [phone] [facility]ieCurbsyIAL [id number] 11:12:00 Test Item Value Reference Range Interpretation Comments Hgb A1C (test code = Hgb A1C) 6.5 [facility]villeannCARDIAC [id number] 11:12:00 Test Item Value Reference Range Interpretation Comments BNP (test code = BNP) 76 [facility]achieGenZum Life Sciences [id number] 11:12:00 Test Item Value Reference Range Interpretation Comments Magnesium Lvl (test code = Magnesium 1.6 1.8-2.4 Lvl) [facility] [id number] 11:12:00 Test Item Value Reference Range Interpretation Comments Lipase Lvl (test code = Lipase Lvl) [phone] [facility] [id number] 11:12:00 Test Item Value Reference Range Interpretation Comments Hgb A1C (test code = Hgb A1C) 6.5 [facility]villeannCARDIAC [id number] 11:12:00 Test Item Value Reference Range Interpretation Comments BNP (test code = BNP) 76 [facility] StephenvilleInveni [id number] 11:12:00 Test Item Value Reference Range Interpretation Comments Magnesium Lvl (test code = Magnesium 1.6 1.8-2.4 Lvl) [facility] StephenvilleInveni [id number] 11:12:00 Test Item Value Reference Range Interpretation Comments Lipase Lvl (test code = Lipase Lvl) 151 73-393 [facility] [id number] 11:12:00 Test Item Value Reference Range Interpretation Comments Hgb A1C (test code = Hgb A1C) 6.5 [facility] StephenvilleannURINE AND [id number] 11:04:00 Test Item Value Reference Range Interpretation Comments UA Sq Epi (test code = UA Sq Occasional /LPF Epi) [facility]villeannJEFF[facility] AND [id number] 11:04:00 Test Item Value Reference Range Interpretation Comments UA WBC (test code = UA None Seen (07/28/16 WBC) 5:04 AM) [facility] [id number] 11:04:00 Test Item Value Reference Range Interpretation Comments UA RBC (test None Seen See_Comment [Automated mes moises] code = UA RBC) (07/28/16 5:04 The system which AM) generated this result transmitted ref erence range: <=2. The reference range was not used to int erpret this result as normal/abnormal . [facility] AND [id number] 11:04:00 Test Item Value Reference Range Interpretation Comments UA Bacteria (test code = UA Occasional /HPF Bacteria) [facility] AND [id number] 11:04:00 Test Item Value Reference Range Interpretation Comments UA Nitrite (test code Negative (07/28/16 5:04 = UA Nitrite) AM) [facility] AND [id number] 11:04:00 Test Item Value Reference Range Interpretation Comments UA Leuk Est (test Negative (07/28/16 5:04 code = UA Leuk Est) AM) [facility] AND [id number] 11:04:00 Test Item Value Reference Range Interpretation Comments UA Turbidity (test code = Clear (07/28/16 5:04 UA Turbidity) AM) [facility] AND [id number] 11:04:00 Test Item Value Reference Range Interpretation Comments UA Color (test code = UA Color) STRAW [facility] AND [id number] 11:04:00 Test Item Value Reference Range Interpretation Comments UA Ketones (test code Negative *NA*(07/28/16 = UA Ketones) 5:04 AM) [facility] AND [id number] 11:04:00 Test Item Value Reference Range Interpretation Comments UA Bili (test code = Negative *NA*(07/28/16 UA Bili) 5:04 AM) [facility] AND [id number] 11:04:00 Test Item Value Reference Range Interpretation Comments UA Spec Grav (test code = UA Spec 1.010 1 Grav) [facility] AND [id number] 11:04:00 Test Item Value Reference Range Interpretation Comments UA Urobilinogen (test code = UA 0.2 0.1-1.0 Urobilinogen) [facility] AND [id number] 11:04:00 Test Item Value Reference Range Interpretation Comments UA Blood (test code = Negative (07/28/16 5:04 UA Blood) AM) [facility] AND [id number] 11:04:00 Test Item Value Reference Range Interpretation Comments UA pH (test code = UA pH) 7.0 1 5.0-8.0 [facility] AND [id number] 11:04:00 Test Item Value Reference Range Interpretation Comments UA Glucose (test code = UA Glucose) 100 mg/dL [facility] AND [id number] 11:04:00 Test Item Value Reference Range Interpretation Comments UA Protein (test code Negative (07/28/16 5:04 = UA Protein) AM) [facility] AND [id number] 11:04:00 Test Item Value Reference Range Interpretation Comments UA Sq Epi (test code = UA Sq Occasional /LPF Epi) [facility] AND [id number] 11:04:00 Test Item Value Reference Range Interpretation Comments UA WBC (test code = UA None Seen (07/28/16 WBC) 5:04 AM) [facility] AND [id number] 11:04:00 Test Item Value Reference Range Interpretation Comments UA RBC (test None Seen See_Comment [Automated mes moises] code = UA RBC) (07/28/16 5:04 The system which AM) generated this result transmitted ref erence range: <=2. The reference range was not used to int erpret this result as normal/abnormal . [facility] AND [id number] 11:04:00 Test Item Value Reference Range Interpretation Comments UA Bacteria (test code = UA Occasional /HPF Bacteria) [facility] AND [id number] 11:04:00 Test Item Value Reference Range Interpretation Comments UA Nitrite (test code Negative (07/28/16 5:04 = UA Nitrite) AM) [facility] AND [id number] 11:04:00 Test Item Value Reference Range Interpretation Comments UA Leuk Est (test Negative (07/28/16 5:04 code = UA Leuk Est) AM) [facility] AND [id number] 11:04:00 Test Item Value Reference Range Interpretation Comments UA Turbidity (test code = Clear (07/28/16 5:04 UA Turbidity) AM) [facility] AND [id number] 11:04:00 Test Item Value Reference Range Interpretation Comments UA Color (test code = UA Color) STRAW [facility] AND [id number] 11:04:00 Test Item Value Reference Range Interpretation Comments UA Ketones (test code Negative *NA*(07/28/16 = UA Ketones) 5:04 AM) [facility] AND [id number] 11:04:00 Test Item Value Reference Range Interpretation Comments UA Bili (test code = Negative *NA*(07/28/16 UA Bili) 5:04 AM) [facility] AND [id number] 11:04:00 Test Item Value Reference Range Interpretation Comments UA Spec Grav (test code = UA Spec 1.010 1 Grav) [facility] AND [id number] 11:04:00 Test Item Value Reference Range Interpretation Comments UA Urobilinogen (test code = UA 0.2 0.1-1.0 Urobilinogen) [facility] AND [id number] 11:04:00 Test Item Value Reference Range Interpretation Comments UA Blood (test code = Negative (07/28/16 5:04 UA Blood) AM) [facility] AND [id number] 11:04:00 Test Item Value Reference Range Interpretation Comments UA pH (test code = UA pH) 7.0 1 5.0-8.0 [facility] AND [id number] 11:04:00 Test Item Value Reference Range Interpretation Comments UA Glucose (test code = UA Glucose) 100 mg/dL [facility]ann[facility] AND [id number] 11:04:00 Test Item Value Reference Range Interpretation Comments UA Protein (test code Negative (07/28/16 5:04 = UA Protein) AM) [facility] AND [id number] 11:04:00 Test Item Value Reference Range Interpretation Comments UA Sq Epi (test code = UA Sq Occasional /LPF Epi) [facility] AND [id number] 11:04:00 Test Item Value Reference Range Interpretation Comments UA WBC (test code = UA None Seen (11/27/16 WBC) 5:04 AM) [facility] [id number] 11:04:00 Test Item Value Reference Range Interpretation Comments UA RBC (test None Seen See_Comment [Automated mes moises] code = UA RBC) (07/28/16 5:04 The system which AM) generated this result transmitted ref erence range: <=2. The reference range was not used to int erpret this result as normal/abnormal . [facility] AND [id number] 11:04:00 Test Item Value Reference Range Interpretation Comments UA Bacteria (test code = UA Occasional /HPF Bacteria) [facility] [id number] 11:04:00 Test Item Value Reference Range Interpretation Comments UA Nitrite (test code Negative (07/28/16 5:04 = UA Nitrite) AM) [facility] AND [id number] 11:04:00 Test Item Value Reference Range Interpretation Comments UA Leuk Est (test Negative (07/28/16 5:04 code = UA Leuk Est) AM) [facility] [id number] 11:04:00 Test Item Value Reference Range Interpretation Comments UA Turbidity (test code = Clear (07/28/16 5:04 UA Turbidity) AM) [facility] [id number] 11:04:00 Test Item Value Reference Range Interpretation Comments UA Color (test code = UA Color) STRAW [facility] [id number] 11:04:00 Test Item Value Reference Range Interpretation Comments UA Ketones (test code Negative *NA*(07/28/16 = UA Ketones) 5:04 AM) [facility] AND [id number] 11:04:00 Test Item Value Reference Range Interpretation Comments UA Bili (test code = Negative *NA*(07/28/16 UA Bili) 5:04 AM) [facility] AND [id number] 11:04:00 Test Item Value Reference Range Interpretation Comments UA Spec Grav (test code = UA Spec 1.010 1 Grav) [facility] [id number] 11:04:00 Test Item Value Reference Range Interpretation Comments UA Urobilinogen (test code = UA 0.2 0.1-1.0 Urobilinogen) [facility] [id number] 11:04:00 Test Item Value Reference Range Interpretation Comments UA Blood (test code = Negative (07/28/16 5:04 UA Blood) AM) [facility] AND [id number] 11:04:00 Test Item Value Reference Range Interpretation Comments UA pH (test code = UA pH) 7.0 1 5.0-8.0 [facility] AND [id number] 11:04:00 Test Item Value Reference Range Interpretation Comments UA Glucose (test code = UA Glucose) 100 mg/dL [facility] AND [id number] 11:04:00 Test Item Value Reference Range Interpretation Comments UA Protein (test code Negative (07/28/16 5:04 = UA Protein) AM) [id number] 11:00:50 Test Item Value Reference Range Interpretation Comments CHD Risk (test code = CHD Risk) 2.35 4.00-7.30 [id number] 11:00:50 Test Item Value Reference Range Interpretation Comments VLDL (test code = VLDL) 27 [id number] 11:00:50 Test Item Value Reference Range Interpretation Comments LDL (Calculated) (test code = LDL 46 (Calculated)) [facility]ieDurharmXATLSI0515-86-89 11:00:50 Test Item Value Reference Range Interpretation Comments Chol (test code = Chol) 127 [id number] 11:00:50 Test Item Value Reference Range Interpretation Comments HDL (test code = HDL) 54 [facility] S[id number] 11:00:50 Test Item Value Reference Range Interpretation Comments Trig (test code = Trig) 135 [facility]IAL [id number] 11:00:50 Test Item Value Reference Range Interpretation Comments Hgb A1C (test code = Hgb A1C) 6.1 [facility] StephenvilleUimmfuvFYDQRF1016-01-05 11:00:50 Test Item Value Reference Range Interpretation Comments CHD Risk (test code = CHD Risk) 2.35 4.00-7.30 [id number] 11:00:50 Test Item Value Reference Range Interpretation Comments VLDL (test code = VLDL) 27 [facility] StephenvilleSjuhtcnPANDTL3691-12-04 11:00:50 Test Item Value Reference Range Interpretation Comments LDL (Calculated) (test code = LDL 46 (Calculated)) [id number] 11:00:50 Test Item Value Reference Range Interpretation Comments Chol (test code = Chol) 127 [id number] 11:00:50 Test Item Value Reference Range Interpretation Comments HDL (test code = HDL) 54 [facility] McKinneyAfxtgjyDLWYZZ8711-20-21 11:00:50 Test Item Value Reference Range Interpretation Comments Trig (test code = Trig) 135 [facility] [id number] 11:00:50 Test Item Value Reference Range Interpretation Comments Hgb A1C (test code = Hgb A1C) 6.1 [id number] 11:00:50 Test Item Value Reference Range Interpretation Comments CHD Risk (test code = CHD Risk) 2.35 4.00-7.30 [facility]ieHliabmzFCXTAZ2995-17-80 11:00:50 Test Item Value Reference Range Interpretation Comments VLDL (test code = VLDL) 27 [facility] McKinneyXirbdxaCCTCCJ4400-77-49 11:00:50 Test Item Value Reference Range Interpretation Comments LDL (Calculated) (test code = LDL 46 (Calculated)) [facility]ieEbjvkacXVXBTR9835-60-02 11:00:50 Test Item Value Reference Range Interpretation Comments Chol (test code = Chol) 127 [facility] McKinneyAbiuwbeAYYXUA4412-16-93 11:00:50 Test Item Value Reference Range Interpretation Comments HDL (test code = HDL) 54 [facility] McKinneyKsbyoqcIMTTNK4297-66-22 11:00:50 Test Item Value Reference Range Interpretation Comments Trig (test code = Trig) 135 [facility] [id number] 11:00:50 Test Item Value Reference Range Interpretation Comments Hgb A1C (test code = Hgb A1C) 6.1 [facility]ieIdifxjvNHGEALTMKO2492-70-14 04:12:00 Test Item Value Reference Range Interpretation Comments Monocytes (test code = Monocytes) 13.7 2.0-12.0 [facility]ieDdmasppIPJPCWTNRJ0693-70-09 04:12:00 Test Item Value Reference Range Interpretation Comments Eosinophils # (test code 0.2 See_Comment [A utomated message] The = Eosinophils #) system ic h generated this result tra nsmitted reference range : <=0.5. The reference r jose alfredo was not used to int erpret this result as normal/abnormal . [facility] CypressJqablqdLIWLNTGDIS1045-76-60 04:12:00 Test Item Value Reference Range Interpretation Comments Lymphocytes # (test code = Lymphocytes 1.9 1.0-5.5 #) [facility] CypressIvmyosxDOKHXVPQVK1420-94-06 04:12:00 Test Item Value Reference Range Interpretation Comments Monocytes # (test code 1.2 See_Comment [Aut omated message] The = Monocytes #) system which generated this result tra nsmitted reference range : <=0.8. The reference r jose alfredo was not used to int erpret this result as normal/abnormal . [facility] CypressVgjidzaFXFSZOOPMH6240-91-71 04:12:00 Test Item Value Reference Range Interpretation Comments Segs (test code = Segs) 60.8 45.0-75.0 [facility] CypressSlgnxsxMNMCQPPCOL1419-67-82 04:12:00 Test Item Value Reference Range Interpretation Comments Eosinophils (test code = 2.7 See_Comment [A utomated message] The Eosinophils) system which ge nerated this result tra nsmitted reference range : <=4.0. The reference r jose alfredo was not used to int erpret this result as normal/abnormal . [facility] CypressUwkytmwESEYPSWCUB4993-88-56 04:12:00 Test Item Value Reference Range Interpretation Comments Basophils (test code = 0.6 See_Comment [Aut omated message] The Basophils) system which ge nerated this result tra nsmitted reference range : <=1.0. The reference r jose alfredo was not used to int erpret this result as normal/abnormal . [facility] CypressGlgzqfuZOILUPZFYW1148-88-40 04:12:00 Test Item Value Reference Range Interpretation Comments PTT (test code = PTT) 26.5 s 22.9-35.8 [facility] CypressPqezpklHZGJFMONWK3812-72-28 04:12:00 Test Item Value Reference Range Interpretation Comments PT (test code = PT) 13.6 s 12.0-14.7 [facility] CypressLcxslygXAWWYPWHRS9758-78-14 04:12:00 Test Item Value Reference Range Interpretation Comments INR (test code = INR) 1.02 0.85-1.17 [facility] CypressIzzkksxJQNSPIXPIK0226-63-87 04:12:00 Test Item Value Reference Range Interpretation Comments Platelet (test code = Platelet) 181 133-450 [facility] CypressLduzeupWPBXWPWRSM6883-29-25 04:12:00 Test Item Value Reference Range Interpretation Comments MPV (test code = MPV) 10.9 7.4-10.4 [facility] CypressPbebdfhDTBLANZVHI7470-48-30 04:12:00 Test Item Value Reference Range Interpretation Comments MCH (test code = MCH) 29.9 pg 27.0-31.0 [facility] CypressFvltgnmJHRQMWVBSW9414-06-79 04:12:00 Test Item Value Reference Range Interpretation Comments MCHC (test code = MCHC) 33.2 32.0-36.0 [facility] CypressMtszzweUYBITKYSCS5055-32-63 04:12:00 Test Item Value Reference Range Interpretation Comments MCV (test code = MCV) 90.2 80.0-94.0 [facility] CypressTajzkubVCWBXOVONM1712-42-63 04:12:00 Test Item Value Reference Range Interpretation Comments RDW (test code = RDW) 13.3 11.5-14.5 [facility] CypressBcukmefVFOILRVHWE7147-30-41 04:12:00 Test Item Value Reference Range Interpretation Comments Hgb (test code = Hgb) 13.4 14.0-18.0 [facility] CypressPxrtdyiVFYKGKUSJK0189-47-26 04:12:00 Test Item Value Reference Range Interpretation Comments Hct (test code = Hct) 40.3 42.0-54.0 [facility] CypressKwmldipWZQHJLTFQD9151-55-04 04:12:00 Test Item Value Reference Range Interpretation Comments WBC (test code = WBC) 8.5 3.7-10.4 [facility] CypressEsbyubyEJRJPTSOLZ2183-11-39 04:12:00 Test Item Value Reference Range Interpretation Comments RBC (test code = RBC) 4.47 4.70-6.10 [facility]2016-11-27 04:12:00 Test Item Value Reference Range Interpretation Comments UA Bacteria (test code = None Seen (07/27/16 UA Bacteria) 10:12 PM) [facility] AND [id number] 04:12:00 Test Item Value Reference Range Interpretation Comments UA WBC (test code = UA None Seen (07/27/16 WBC) 10:12 PM) [facility] AND [id number] 04:12:00 Test Item Value Reference Range Interpretation Comments UA RBC (test None Seen See_Comment [Automated mes moises] code = UA RBC) (07/27/16 10:12 The system which PM) generated this result transmitted ref erence range: <=2. The reference range was not used to int erpret this result as normal/abnormal . [facility] AND [id number] 04:12:00 Test Item Value Reference Range Interpretation Comments UA Sq Epi (test code = UA Sq Epi) Rare /LPF [facility] [facility] [id number] 04:12:00 Test Item Value Reference Range Interpretation Comments UA Nitrite (test code Negative (07/27/16 = UA Nitrite) 10:12 PM) [facility] AND [id number] 04:12:00 Test Item Value Reference Range Interpretation Comments UA Leuk Est (test Negative (07/27/16 10:12 code = UA Leuk Est) PM) [facility] AND [id number] 04:12:00 Test Item Value Reference Range Interpretation Comments UA Ketones (test code = UA Negative mg/dL Ketones) [facility] AND [id number] 04:12:00 Test Item Value Reference Range Interpretation Comments UA Bili (test code = Negative *NA*(07/27/16 UA Bili) 10:12 PM) [facility] AND [id number] 04:12:00 Test Item Value Reference Range Interpretation Comments UA Blood (test code = Negative (07/27/16 10:12 UA Blood) PM) [facility] AND [id number] 04:12:00 Test Item Value Reference Range Interpretation Comments UA Urobilinogen (test code = UA 0.2 0.1-1.0 Urobilinogen) [facility] AND [id number] 04:12:00 Test Item Value Reference Range Interpretation Comments UA Spec Grav (test code = UA Spec 1.010 1 Grav) [facility] AND [id number] 04:12:00 Test Item Value Reference Range Interpretation Comments UA Color (test code = Yellow *NA*(07/27/16 UA Color) 10:12 PM) [facility] AND [id number] 04:12:00 Test Item Value Reference Range Interpretation Comments UA Turbidity (test code = Clear (07/27/16 UA Turbidity) 10:12 PM) [facility] AND [id number] 04:12:00 Test Item Value Reference Range Interpretation Comments UA pH (test code = UA pH) 7.5 1 5.0-8.0 [facility] [id number] 04:12:00 Test Item Value Reference Range Interpretation Comments UA Protein (test code = UA Negative mg/dL Protein) [facility] [id number] 04:12:00 Test Item Value Reference Range Interpretation Comments UA Glucose (test code = UA Negative mg/dL Glucose) [facility] [id number] 04:12:00 Test Item Value Reference Range Interpretation Comments CK MB Index (test no gt See_Comment [Automate d message] The code = CK MB Index) system [facility] generated this result transmit stuart reference range : <=2.5. The reference range was not used to interpr et this result as cherry l/abnormal. [facility] [id number] 04:12:00 Test Item Value Reference Range Interpretation Comments Troponin-I (test code no gt See_Comment [Auto mated message] The = Troponin-I) system which g enerated this result transmit stuart reference range : <=0.40. The reference r jose alfredo was not used to interpr et this result as cherry l/abnormal. [facility] [id number] 04:12:00 Test Item Value Reference Range Interpretation Comments CK MB (test code = CK MB) no gt 0.5-3.6 [facility] [id number] 04:12:00 Test Item Value Reference Range Interpretation Comments Total CK (test code = Total CK) 49 12-191 [facility] [id number] 04:12:00 Test Item Value Reference Range Interpretation Comments BNP (test code = BNP) 32 [facility] [employer] [id number] 04:12:00 Test Item Value Reference Range Interpretation Comments Globulin (test code = Globulin) 3.3 2.7-4.2 [facility] [employer] [id number] 04:12:00 Test Item Value Reference Range Interpretation Comments A/G Ratio (test code = A/G Ratio) 1.0 0.7-1.6 [facility] [id number] 04:12:00 Test Item Value Reference Range Interpretation Comments eGFR (test code = eGFR) 53 [facility]2016-11-27 04:12:00 Test Item Value Reference Range Interpretation Comments AST (test code = AST) 11 See_Comment [Auto mated message] The system which ge nerated this result transmit stuart reference range : <=37. The reference range was not used to interpr et this result as cherry l/abnormal. [place] [id number] 04:12:00 Test Item Value Reference Range Interpretation Comments Alk Phos (test code = Alk Phos) 38 39-136 [facility]2016-11-27 04:12:00 Test Item Value Reference Range Interpretation Comments Bili Total (test code = Bili Total) 0.2 0.2-1.3 [facility]2016-11-27 04:12:00 Test Item Value Reference Range Interpretation Comments AGAP (test code = AGAP) 10.0 10.0-20.0 [place] [id number] 04:12:00 Test Item Value Reference Range Interpretation Comments B/C Ratio (test code = B/C Ratio) 21 6-25 [place] [id number] 04:12:00 Test Item Value Reference Range Interpretation Comments ALT (test code = ALT) 16 See_Comment [Auto mated message] The system which ge nerated this result transmit stuart reference range : <=65. The reference range was not used to interpr et this result as cherry l/abnormal. [facility]2016-11-27 04:12:00 Test Item Value Reference Range Interpretation Comments Albumin Lvl (test code = Albumin Lvl) 3.3 3.5-5.0 [facility]2016-11-27 04:12:00 Test Item Value Reference Range Interpretation Comments Calcium Lvl (test code = Calcium Lvl) 8.3 8.5-10.5 [facility]2016-11-27 04:12:00 Test Item Value Reference Range Interpretation Comments CO2 (test code = CO2) 34 24-32 [place] [id number] 04:12:00 Test Item Value Reference Range Interpretation Comments Total Protein (test code = Total 6.6 6.4-8.4 Protein) [facility]2016-11-27 04:12:00 Test Item Value Reference Range Interpretation Comments Glucose Lvl (test code = Glucose Lvl) 161 70-99 [facility]2016-11-27 04:12:00 Test Item Value Reference Range Interpretation Comments Potassium Lvl (test code = Potassium 4.0 3.5-5.1 Lvl) [facility]2016-11-27 04:12:00 Test Item Value Reference Range Interpretation Comments Chloride Lvl (test code = Chloride Lvl) 99 95-109 [facility]2016-11-27 04:12:00 Test Item Value Reference Range Interpretation Comments Creatinine Lvl (test code = Creatinine 1.34 0.50-1.40 Lvl) [facility]2016-11-27 04:12:00 Test Item Value Reference Range Interpretation Comments BUN (test code = BUN) 28 7-22 [facility]2016-11-27 04:12:00 Test Item Value Reference Range Interpretation Comments Sodium Lvl (test code = Sodium Lvl) 139 135-145 [facility]ocoazzLKCDAVWTOU0098-28-27 04:12:00 Test Item Value Reference Range Interpretation Comments Basophils # (test code 0.1 See_Comment [Aut omated message] The = Basophils #) system which generated this result tra nsmitted reference range : <=0.2. The reference r jose alfredo was not used to int erpret this result as normal/abnormal . [facility] CypressEhekktyPJZDJDQIUB0377-71-07 04:12:00 Test Item Value Reference Range Interpretation Comments Segs-Bands # (test code = Segs-Bands #) 5.2 1.5-8.1 [facility] CypressNknztjdDQKAIJWPBV2830-57-29 04:12:00 Test Item Value Reference Range Interpretation Comments Lymphocytes (test code = Lymphocytes) 22.2 20.0-40.0 [facility] CypressXgrbdpeIULFIOSBYV0304-89-67 04:12:00 Test Item Value Reference Range Interpretation Comments Monocytes (test code = Monocytes) 13.7 2.0-12.0 [facility] CypressYtmkywzCMCPBABIYJ2729-91-15 04:12:00 Test Item Value Reference Range Interpretation Comments Eosinophils # (test code 0.2 See_Comment [A utomated message] The = Eosinophils #) system ic h generated this result tra nsmitted reference range : <=0.5. The reference r jose alfredo was not used to int erpret this result as normal/abnormal . [facility] CypressBxxflqrHHIRORETTI7278-48-44 04:12:00 Test Item Value Reference Range Interpretation Comments Lymphocytes # (test code = Lymphocytes 1.9 1.0-5.5 #) [facility] CypressKjqpfvvRNXVKFCBAS9961-94-85 04:12:00 Test Item Value Reference Range Interpretation Comments Monocytes # (test code 1.2 See_Comment [Aut omated message] The = Monocytes #) system which generated this result tra nsmitted reference range : <=0.8. The reference r jose alfredo was not used to int erpret this result as normal/abnormal . [facility] CypressQjdgivdVZPXTJHWLG3579-55-47 04:12:00 Test Item Value Reference Range Interpretation Comments Segs (test code = Segs) 60.8 45.0-75.0 [facility] CypressSbaixesOFJSHTVMPX5943-10-92 04:12:00 Test Item Value Reference Range Interpretation Comments Eosinophils (test code = 2.7 See_Comment [A utomated message] The Eosinophils) system which ge nerated this result tra nsmitted reference range : <=4.0. The reference r jose alfredo was not used to int erpret this result as normal/abnormal . [facility] CypressGpiqnivHJDROYOJUI1425-23-61 04:12:00 Test Item Value Reference Range Interpretation Comments Basophils (test code = 0.6 See_Comment [Aut omated message] The Basophils) system which ge nerated this result tra nsmitted reference range : <=1.0. The reference r jose alfredo was not used to int erpret this result as normal/abnormal . [facility] CypressZfdoyjcWTPQKRKTVD5026-85-25 04:12:00 Test Item Value Reference Range Interpretation Comments PTT (test code = PTT) 26.5 s 22.9-35.8 [facility] CypressGvzirxrPTSEEDJHYM7752-03-88 04:12:00 Test Item Value Reference Range Interpretation Comments PT (test code = PT) 13.6 s 12.0-14.7 [facility] CypressVpqvbdpTJJHRSLODU4062-13-12 04:12:00 Test Item Value Reference Range Interpretation Comments INR (test code = INR) 1.02 0.85-1.17 [facility] CypressVsdapwiZRHXNPMFNE2643-80-48 04:12:00 Test Item Value Reference Range Interpretation Comments Platelet (test code = Platelet) 181 133-450 [facility] CypressBalkgwrXAEAESQERF8415-70-34 04:12:00 Test Item Value Reference Range Interpretation Comments MPV (test code = MPV) 10.9 7.4-10.4 [facility] CypressJskrrvnEMQCRTFONN9572-22-71 04:12:00 Test Item Value Reference Range Interpretation Comments MCH (test code = MCH) 29.9 pg 27.0-31.0 [facility] CypressNspfgpqBGDQQYFELD8522-79-57 04:12:00 Test Item Value Reference Range Interpretation Comments MCHC (test code = MCHC) 33.2 32.0-36.0 [facility] CypressPvagvzxMGFPHABFFL3227-55-76 04:12:00 Test Item Value Reference Range Interpretation Comments MCV (test code = MCV) 90.2 80.0-94.0 [facility] CypressZxevykhLYDUEJAYLS0128-56-65 04:12:00 Test Item Value Reference Range Interpretation Comments RDW (test code = RDW) 13.3 11.5-14.5 [facility] CypressGcvmkzzOISNCNJVXK9450-30-76 04:12:00 Test Item Value Reference Range Interpretation Comments Hgb (test code = Hgb) 13.4 14.0-18.0 [facility] CypressQeyqmkyIUSRSZLTFU3396-29-35 04:12:00 Test Item Value Reference Range Interpretation Comments Hct (test code = Hct) 40.3 42.0-54.0 [facility] CypressQceggpdNKOJCOOKGU8924-78-58 04:12:00 Test Item Value Reference Range Interpretation Comments WBC (test code = WBC) 8.5 3.7-10.4 [facility] CypressAftorczDIYQOVVHGQ5983-50-08 04:12:00 Test Item Value Reference Range Interpretation Comments RBC (test code = RBC) 4.47 4.70-6.10 [facility]2016-11-27 04:12:00 Test Item Value Reference Range Interpretation Comments UA Bacteria (test code = None Seen (07/27/16 UA Bacteria) 10:12 PM) [facility]2016-11-27 04:12:00 Test Item Value Reference Range Interpretation Comments UA WBC (test code = UA None Seen (07/27/16 WBC) 10:12 PM) [facility]2016-11-27 04:12:00 Test Item Value Reference Range Interpretation Comments UA RBC (test None Seen See_Comment [Automated mes moises] code = UA RBC) (07/27/16 10:12 The system which PM) generated this result transmitted ref erence range: <=2. The reference range was not used to int erpret this result as normal/abnormal . [facility] AND [id number] 04:12:00 Test Item Value Reference Range Interpretation Comments UA Sq Epi (test code = UA Sq Epi) Rare /LPF [facility] AND [id number] 04:12:00 Test Item Value Reference Range Interpretation Comments UA Nitrite (test code Negative (07/27/16 = UA Nitrite) 10:12 PM) [facility] AND [id number] 04:12:00 Test Item Value Reference Range Interpretation Comments UA Leuk Est (test Negative (07/27/16 10:12 code = UA Leuk Est) PM) [facility] AND [id number] 04:12:00 Test Item Value Reference Range Interpretation Comments UA Ketones (test code = UA Negative mg/dL Ketones) [facility] AND [id number] 04:12:00 Test Item Value Reference Range Interpretation Comments UA Bili (test code = Negative *NA*(07/27/16 UA Bili) 10:12 PM) [facility] AND [id number] 04:12:00 Test Item Value Reference Range Interpretation Comments UA Blood (test code = Negative (07/27/16 10:12 UA Blood) PM) [facility] AND [id number] 04:12:00 Test Item Value Reference Range Interpretation Comments UA Urobilinogen (test code = UA 0.2 0.1-1.0 Urobilinogen) [facility] AND [id number] 04:12:00 Test Item Value Reference Range Interpretation Comments UA Spec Grav (test code = UA Spec 1.010 1 Grav) [facility] AND [id number] 04:12:00 Test Item Value Reference Range Interpretation Comments UA Color (test code = Yellow *NA*(07/27/16 UA Color) 10:12 PM) [facility] AND [id number] 04:12:00 Test Item Value Reference Range Interpretation Comments UA Turbidity (test code = Clear (07/27/16 UA Turbidity) 10:12 PM) [facility] AND [id number] 04:12:00 Test Item Value Reference Range Interpretation Comments UA pH (test code = UA pH) 7.5 1 5.0-8.0 [facility] [id number] 04:12:00 Test Item Value Reference Range Interpretation Comments UA Protein (test code = UA Negative mg/dL Protein) [facility] [id number] 04:12:00 Test Item Value Reference Range Interpretation Comments UA Glucose (test code = UA Negative mg/dL Glucose) [facility] [id number] 04:12:00 Test Item Value Reference Range Interpretation Comments CK MB Index (test no gt See_Comment [Automate d message] The code = CK MB Index) system [facility] generated this result transmit stuart reference range : <=2.5. The reference range was not used to interpr et this result as cherry l/abnormal. [facility]2016-11-27 04:12:00 Test Item Value Reference Range Interpretation Comments Troponin-I (test code no gt See_Comment [Auto mated message] The = Troponin-I) system which g enerated this result transmit stuart reference range : <=0.40. The reference r jose alfredo was not used to interpr et this result as cherry l/abnormal. [facility] [id number] 04:12:00 Test Item Value Reference Range Interpretation Comments CK MB (test code = CK MB) no gt 0.5-3.6 [facility] [id number] 04:12:00 Test Item Value Reference Range Interpretation Comments Total CK (test code = Total CK) 49 12-191 [facility] [id number] 04:12:00 Test Item Value Reference Range Interpretation Comments BNP (test code = BNP) 32 [facility] [employer] [id number] 04:12:00 Test Item Value Reference Range Interpretation Comments Globulin (test code = Globulin) 3.3 2.7-4.2 [facility] [employer] [id number] 04:12:00 Test Item Value Reference Range Interpretation Comments A/G Ratio (test code = A/G Ratio) 1.0 0.7-1.6 [facility] [employer] [id number] 04:12:00 Test Item Value Reference Range Interpretation Comments eGFR (test code = eGFR) 53 [facility]2016-11-27 04:12:00 Test Item Value Reference Range Interpretation Comments AST (test code = AST) 11 See_Comment [Auto mated message] The system which ge nerated this result transmit stuart reference range : <=37. The reference range was not used to interpr et this result as cherry l/abnormal. [place] 189366-11-27 04:12:00 Test Item Value Reference Range Interpretation Comments Alk Phos (test code = Alk Phos) 38 39-136 [facility]2016-11-27 04:12:00 Test Item Value Reference Range Interpretation Comments Bili Total (test code = Bili Total) 0.2 0.2-1.3 [facility]2016-11-27 04:12:00 Test Item Value Reference Range Interpretation Comments AGAP (test code = AGAP) 10.0 10.0-20.0 [facility]2016-11-27 04:12:00 Test Item Value Reference Range Interpretation Comments B/C Ratio (test code = B/C Ratio) 21 6-25 [place] 189366-11-27 04:12:00 Test Item Value Reference Range Interpretation Comments ALT (test code = ALT) 16 See_Comment [Auto mated message] The system which ge nerated this result transmit stuart reference range : <=65. The reference range was not used to interpr et this result as cherry l/abnormal. [facility]2016-11-27 04:12:00 Test Item Value Reference Range Interpretation Comments Albumin Lvl (test code = Albumin Lvl) 3.3 3.5-5.0 [facility]2016-11-27 04:12:00 Test Item Value Reference Range Interpretation Comments Calcium Lvl (test code = Calcium Lvl) 8.3 8.5-10.5 [facility]2016-11-27 04:12:00 Test Item Value Reference Range Interpretation Comments CO2 (test code = CO2) 34 24-32 [place] 189366-11-27 04:12:00 Test Item Value Reference Range Interpretation Comments Total Protein (test code = Total 6.6 6.4-8.4 Protein) [facility]2016-11-27 04:12:00 Test Item Value Reference Range Interpretation Comments Glucose Lvl (test code = Glucose Lvl) 161 70-99 [facility]2016-11-27 04:12:00 Test Item Value Reference Range Interpretation Comments Potassium Lvl (test code = Potassium 4.0 3.5-5.1 Lvl) [facility]2016-11-27 04:12:00 Test Item Value Reference Range Interpretation Comments Chloride Lvl (test code = Chloride Lvl) 99 95-109 [place] 189366-11-27 04:12:00 Test Item Value Reference Range Interpretation Comments Creatinine Lvl (test code = Creatinine 1.34 0.50-1.40 Lvl) [facility]2016-11-27 04:12:00 Test Item Value Reference Range Interpretation Comments BUN (test code = BUN) 28 7-22 [place] 189366-11-27 04:12:00 Test Item Value Reference Range Interpretation Comments Sodium Lvl (test code = Sodium Lvl) 139 135-145 [facility] CypressHsdyvamESYHZVQPVA5889-00-77 04:12:00 Test Item Value Reference Range Interpretation Comments Basophils # (test code 0.1 See_Comment [Aut omated message] The = Basophils #) system which generated this result tra nsmitted reference range : <=0.2. The reference r jose alfredo was not used to int erpret this result as normal/abnormal . [facility] CypressZjktdmfGBVXTERPOU1359-52-70 04:12:00 Test Item Value Reference Range Interpretation Comments Segs-Bands # (test code = Segs-Bands #) 5.2 1.5-8.1 [facility] CypressPwmauhuVLQGJKSTZJ7727-42-72 04:12:00 Test Item Value Reference Range Interpretation Comments Lymphocytes (test code = Lymphocytes) 22.2 20.0-40.0 [facility] CypressMjvgjouNXZQJOCDPM4507-22-75 04:12:00 Test Item Value Reference Range Interpretation Comments Monocytes (test code = Monocytes) 13.7 2.0-12.0 [facility] CypressNotehlqOWWIYTEWTV4339-17-40 04:12:00 Test Item Value Reference Range Interpretation Comments Eosinophils # (test code 0.2 See_Comment [A utomated message] The = Eosinophils #) system whic h generated this result tra nsmitted reference range : <=0.5. The reference r jose alfredo was not used to int erpret this result as normal/abnormal . [facility] CypressLxryatjEHCJOQAAVU4117-45-07 04:12:00 Test Item Value Reference Range Interpretation Comments Lymphocytes # (test code = Lymphocytes 1.9 1.0-5.5 #) [facility] CypressYefvqutFGVURTIQVB0780-65-09 04:12:00 Test Item Value Reference Range Interpretation Comments Monocytes # (test code 1.2 See_Comment [Aut omated message] The = Monocytes #) system which generated this result tra nsmitted reference range : <=0.8. The reference r jose alfredo was not used to int erpret this result as normal/abnormal . [facility] CypressLltmfwaFTYDSXLZUF2228-56-80 04:12:00 Test Item Value Reference Range Interpretation Comments Segs (test code = Segs) 60.8 45.0-75.0 [facility] CypressCkybubbZRSNFDNXQN0478-57-18 04:12:00 Test Item Value Reference Range Interpretation Comments Eosinophils (test code = 2.7 See_Comment [A utomated message] The Eosinophils) system which ge nerated this result tra nsmitted reference range : <=4.0. The reference r jose alfredo was not used to int erpret this result as normal/abnormal . [facility] CypressTjluvnkVPQHMJBSDQ4271-85-32 04:12:00 Test Item Value Reference Range Interpretation Comments Basophils (test code = 0.6 See_Comment [Aut omated message] The Basophils) system which ge nerated this result tra nsmitted reference range : <=1.0. The reference r jose alfredo was not used to int erpret this result as normal/abnormal . [facility] CypressSuujubqGIUWYDWPTE8069-95-45 04:12:00 Test Item Value Reference Range Interpretation Comments PTT (test code = PTT) 26.5 s 22.9-35.8 [facility] CypressJzpwxejBGDWVJNOFY2315-63-29 04:12:00 Test Item Value Reference Range Interpretation Comments PT (test code = PT) 13.6 s 12.0-14.7 [facility] CypressCogpwktBCPOTYPKSB4535-42-23 04:12:00 Test Item Value Reference Range Interpretation Comments INR (test code = INR) 1.02 0.85-1.17 [facility] CypressVkrcblhPPXXBWSQWL9358-76-50 04:12:00 Test Item Value Reference Range Interpretation Comments Platelet (test code = Platelet) 181 133-450 [facility] CypressFaynlxzFOYYRMIYTE0735-60-82 04:12:00 Test Item Value Reference Range Interpretation Comments MPV (test code = MPV) 10.9 7.4-10.4 [facility] CypressUkrkksdGZUQVAYXYL8834-04-23 04:12:00 Test Item Value Reference Range Interpretation Comments MCH (test code = MCH) 29.9 pg 27.0-31.0 [facility] CypressUmjgkmdJZBZEEBGGS7860-62-95 04:12:00 Test Item Value Reference Range Interpretation Comments MCHC (test code = MCHC) 33.2 32.0-36.0 [facility] CypressZdwfbfuWFJNGSFJXN7590-02-81 04:12:00 Test Item Value Reference Range Interpretation Comments MCV (test code = MCV) 90.2 80.0-94.0 [facility] CypressNkbklssJQLZORYRGC4970-61-68 04:12:00 Test Item Value Reference Range Interpretation Comments RDW (test code = RDW) 13.3 11.5-14.5 [facility] CypressDchnhlnYXLKKJMSKR0165-16-42 04:12:00 Test Item Value Reference Range Interpretation Comments Hgb (test code = Hgb) 13.4 14.0-18.0 [facility] CypressTmcfsixJAWZNAHTVU0072-38-01 04:12:00 Test Item Value Reference Range Interpretation Comments Hct (test code = Hct) 40.3 42.0-54.0 [facility] CypressExghwsuJCIETJUPPT1313-34-69 04:12:00 Test Item Value Reference Range Interpretation Comments WBC (test code = WBC) 8.5 3.7-10.4 [facility] CypressWhpiwlsBPQKKOZBRJ2113-66-46 04:12:00 Test Item Value Reference Range Interpretation Comments RBC (test code = RBC) 4.47 4.70-6.10 [facility]2016-11-27 04:12:00 Test Item Value Reference Range Interpretation Comments UA Bacteria (test code = None Seen (07/27/16 UA Bacteria) 10:12 PM) [facility] [facility] [id number] 04:12:00 Test Item Value Reference Range Interpretation Comments UA WBC (test code = UA None Seen (07/27/16 WBC) 10:12 PM) [facility] AND [id number] 04:12:00 Test Item Value Reference Range Interpretation Comments UA RBC (test None Seen See_Comment [Automated mes moises] code = UA RBC) (07/27/16 10:12 The system which PM) generated this result transmitted ref erence range: <=2. The reference range was not used to int erpret this result as normal/abnormal . [facility] AND [id number] 04:12:00 Test Item Value Reference Range Interpretation Comments UA Sq Epi (test code = UA Sq Epi) Rare /LPF [facility] AND [id number] 04:12:00 Test Item Value Reference Range Interpretation Comments UA Nitrite (test code Negative (07/27/16 = UA Nitrite) 10:12 PM) [facility] AND [id number] 04:12:00 Test Item Value Reference Range Interpretation Comments UA Leuk Est (test Negative (07/27/16 10:12 code = UA Leuk Est) PM) [facility] AND [id number] 04:12:00 Test Item Value Reference Range Interpretation Comments UA Ketones (test code = UA Negative mg/dL Ketones) [facility] AND [id number] 04:12:00 Test Item Value Reference Range Interpretation Comments UA Bili (test code = Negative *NA*(07/27/16 UA Bili) 10:12 PM) [facility] AND [id number] 04:12:00 Test Item Value Reference Range Interpretation Comments UA Blood (test code = Negative (07/27/16 10:12 UA Blood) PM) [facility] AND [id number] 04:12:00 Test Item Value Reference Range Interpretation Comments UA Urobilinogen (test code = UA 0.2 0.1-1.0 Urobilinogen) [facility] AND [id number] 04:12:00 Test Item Value Reference Range Interpretation Comments UA Spec Grav (test code = UA Spec 1.010 1 Grav) [facility] AND [id number] 04:12:00 Test Item Value Reference Range Interpretation Comments UA Color (test code = Yellow *NA*(07/27/16 UA Color) 10:12 PM) [facility] AND [id number] 04:12:00 Test Item Value Reference Range Interpretation Comments UA Turbidity (test code = Clear (07/27/16 UA Turbidity) 10:12 PM) [facility] AND [id number] 04:12:00 Test Item Value Reference Range Interpretation Comments UA pH (test code = UA pH) 7.5 1 5.0-8.0 [facility] [id number] 04:12:00 Test Item Value Reference Range Interpretation Comments UA Protein (test code = UA Negative mg/dL Protein) [facility] AND [id number] 04:12:00 Test Item Value Reference Range Interpretation Comments UA Glucose (test code = UA Negative mg/dL Glucose) [facility]ASHannCAR[facility]door[facility] [id number] 04:12:00 Test Item Value Reference Range Interpretation Comments CK MB Index (test no gt See_Comment [Automate d message] The code = CK MB Index) system w [facility] generated this result transmit stuart reference range : <=2.5. The reference range was not used to interpr et this result as cherry l/abnormal. [facility] [employer] [id number] 04:12:00 Test Item Value Reference Range Interpretation Comments Troponin-I (test code no gt See_Comment [Auto mated message] The = Troponin-I) system which g enerated this result transmit stuart reference range : <=0.40. The reference r jose alfredo was not used to interpr et this result as cherry l/abnormal. [facility] [id number] 04:12:00 Test Item Value Reference Range Interpretation Comments CK MB (test code = CK MB) no gt 0.5-3.6 [facility] [id number] 04:12:00 Test Item Value Reference Range Interpretation Comments Total CK (test code = Total CK) 49 12-191 [facility] [id number] 04:12:00 Test Item Value Reference Range Interpretation Comments BNP (test code = BNP) 32 [facility] [employer] [id number] 04:12:00 Test Item Value Reference Range Interpretation Comments Globulin (test code = Globulin) 3.3 2.7-4.2 [facility] [employer] [id number] 04:12:00 Test Item Value Reference Range Interpretation Comments A/G Ratio (test code = A/G Ratio) 1.0 0.7-1.6 [facility] [employer] [id number] 04:12:00 Test Item Value Reference Range Interpretation Comments eGFR (test code = eGFR) 53 [facility]2016-11-27 04:12:00 Test Item Value Reference Range Interpretation Comments AST (test code = AST) 11 See_Comment [Auto mated message] The system which ge nerated this result transmit stuart reference range : <=37. The reference range was not used to interpr et this result as cherry l/abnormal. [facility]2016-11-27 04:12:00 Test Item Value Reference Range Interpretation Comments Alk Phos (test code = Alk Phos) 38 39-136 [facility]2016-11-27 04:12:00 Test Item Value Reference Range Interpretation Comments Bili Total (test code = Bili Total) 0.2 0.2-1.3 [facility]2016-11-27 04:12:00 Test Item Value Reference Range Interpretation Comments AGAP (test code = AGAP) 10.0 10.0-20.0 [facility]2016-11-27 04:12:00 Test Item Value Reference Range Interpretation Comments B/C Ratio (test code = B/C Ratio) 21 6-25 [facility]2016-11-27 04:12:00 Test Item Value Reference Range Interpretation Comments ALT (test code = ALT) 16 See_Comment [Auto mated message] The system which ge nerated this result transmit stuart reference range : <=65. The reference range was not used to interpr et this result as cherry l/abnormal. [facility]2016-11-27 04:12:00 Test Item Value Reference Range Interpretation Comments Albumin Lvl (test code = Albumin Lvl) 3.3 3.5-5.0 [facility]2016-11-27 04:12:00 Test Item Value Reference Range Interpretation Comments Calcium Lvl (test code = Calcium Lvl) 8.3 8.5-10.5 [facility]2016-11-27 04:12:00 Test Item Value Reference Range Interpretation Comments CO2 (test code = CO2) 34 24-32 [facility]2016-11-27 04:12:00 Test Item Value Reference Range Interpretation Comments Total Protein (test code = Total 6.6 6.4-8.4 Protein) [facility]2016-11-27 04:12:00 Test Item Value Reference Range Interpretation Comments Glucose Lvl (test code = Glucose Lvl) 161 70-99 [facility]2016-11-27 04:12:00 Test Item Value Reference Range Interpretation Comments Potassium Lvl (test code = Potassium 4.0 3.5-5.1 Lvl) [facility]2016-11-27 04:12:00 Test Item Value Reference Range Interpretation Comments Chloride Lvl (test code = Chloride Lvl) 99 95-109 [facility]2016-11-27 04:12:00 Test Item Value Reference Range Interpretation Comments Creatinine Lvl (test code = Creatinine 1.34 0.50-1.40 Lvl) [facility]2016-11-27 04:12:00 Test Item Value Reference Range Interpretation Comments BUN (test code = BUN) 28 7-22 [facility]2016-11-27 04:12:00 Test Item Value Reference Range Interpretation Comments Sodium Lvl (test code = Sodium Lvl) 139 135-145 [id number] 04:12:00 Test Item Value Reference Range Interpretation Comments Basophils # (test code 0.1 See_Comment [Aut omated message] The = Basophils #) system which generated this result tra nsmitted reference range : <=0.2. The reference r jose alfredo was not used to int erpret this result as normal/abnormal . [facility] [id number] 04:12:00 Test Item Value Reference Range Interpretation Comments Segs-Bands # (test code = Segs-Bands #) 5.2 1.5-8.1 [facility] [id number] 04:12:00 Test Item Value Reference Range Interpretation Comments Lymphocytes (test code = Lymphocytes) 22.2 20.0-40.0 [facility] AND [id number] 16:03:00 Test Item Value Reference Range Interpretation Comments UA Leuk Est (test Negative (05/30/16 11:03 code = UA Leuk Est) AM) [facility] AND [id number] 16:03:00 Test Item Value Reference Range Interpretation Comments UA Turbidity (test code = Clear (05/30/16 11:03 UA Turbidity) AM) [facility] AND [id number] 16:03:00 Test Item Value Reference Range Interpretation Comments UA Nitrite (test code Negative (05/30/16 11:03 = UA Nitrite) AM) [facility] AND [id number] 16:03:00 Test Item Value Reference Range Interpretation Comments UA Urobilinogen (test code = UA 0.2 0.1-1.0 Urobilinogen) [facility] AND [id number] 16:03:00 Test Item Value Reference Range Interpretation Comments UA Spec Grav (test code = UA Spec 1.015 1 Grav) [facility] AND [id number] 16:03:00 Test Item Value Reference Range Interpretation Comments UA pH (test code = UA pH) 6.0 1 5.0-8.0 [facility] AND [id number] 16:03:00 Test Item Value Reference Range Interpretation Comments UA Protein (test code Negative (05/30/16 11:03 = UA Protein) AM) [facility] AND [id number] 16:03:00 Test Item Value Reference Range Interpretation Comments UA Color (test code = Yellow *NA*(05/30/16 UA Color) 11:03 AM) [facility] AND [id number] 16:03:00 Test Item Value Reference Range Interpretation Comments UA Ketones (test code Negative *NA*(05/30/16 = UA Ketones) 11:03 AM) [facility] AND [id number] 16:03:00 Test Item Value Reference Range Interpretation Comments UA Glucose (test code Negative (05/30/16 11:03 = UA Glucose) AM) [facility] AND [id number] 16:03:00 Test Item Value Reference Range Interpretation Comments UA Blood (test code = Moderate *ABN*(05/30/16 UA Blood) 11:03 AM) [facility] AND [id number] 16:03:00 Test Item Value Reference Range Interpretation Comments UA Bili (test code = Negative *NA*(05/30/16 UA Bili) 11:03 AM) [facility] AND [id number] 16:03:00 Test Item Value Reference Range Interpretation Comments UA Sq Epi (test code = UA Sq Epi) Rare /LPF [facility] AND [id number] 16:03:00 Test Item Value Reference Range Interpretation Comments Micro? (test code = Performed (05/30/16 11:03 Micro?) AM) [facility] AND [id number] 16:03:00 Test Item Value Reference Range Interpretation Comments UA WBC (test code = UA None Seen (05/30/16 WBC) 11:03 AM) [facility] AND [id number] 16:03:00 Test Item Value Reference Range Interpretation Comments UA RBC (test None Seen See_Comment [Automated mes moises] code = UA RBC) (05/30/16 11:03 The system which AM) generated this result transmitted ref erence range: <=2. The reference range was not used to int erpret this result as normal/abnormal . [facility] AND [id number] 16:03:00 Test Item Value Reference Range Interpretation Comments UA Bacteria (test code = None Seen (05/30/16 UA Bacteria) 11:03 AM) [facility] AND [id number] 16:03:00 Test Item Value Reference Range Interpretation Comments UA Leuk Est (test Negative (05/30/16 11:03 code = UA Leuk Est) AM) [facility] AND [id number] 16:03:00 Test Item Value Reference Range Interpretation Comments UA Turbidity (test code = Clear (05/30/16 11:03 UA Turbidity) AM) [facility] AND [id number] 16:03:00 Test Item Value Reference Range Interpretation Comments UA Nitrite (test code Negative (05/30/16 11:03 = UA Nitrite) AM) [facility] AND [id number] 16:03:00 Test Item Value Reference Range Interpretation Comments UA Urobilinogen (test code = UA 0.2 0.1-1.0 Urobilinogen) [facility] AND [id number] 16:03:00 Test Item Value Reference Range Interpretation Comments UA Spec Grav (test code = UA Spec 1.015 1 Grav) [facility] AND [id number] 16:03:00 Test Item Value Reference Range Interpretation Comments UA pH (test code = UA pH) 6.0 1 5.0-8.0 [facility] AND [id number] 16:03:00 Test Item Value Reference Range Interpretation Comments UA Protein (test code Negative (05/30/16 11:03 = UA Protein) AM) [facility] AND [id number] 16:03:00 Test Item Value Reference Range Interpretation Comments UA Color (test code = Yellow *NA*(05/30/16 UA Color) 11:03 AM) [facility] AND [id number] 16:03:00 Test Item Value Reference Range Interpretation Comments UA Ketones (test code Negative *NA*(05/30/16 = UA Ketones) 11:03 AM) [facility] AND [id number] 16:03:00 Test Item Value Reference Range Interpretation Comments UA Glucose (test code Negative (05/30/16 11:03 = UA Glucose) AM) [facility] AND [id number] 16:03:00 Test Item Value Reference Range Interpretation Comments UA Blood (test code = Moderate *ABN*(05/30/16 UA Blood) 11:03 AM) [facility] AND [id number] 16:03:00 Test Item Value Reference Range Interpretation Comments UA Bili (test code = Negative *NA*(05/30/16 UA Bili) 11:03 AM) [facility] AND [id number] 16:03:00 Test Item Value Reference Range Interpretation Comments UA Sq Epi (test code = UA Sq Epi) Rare /LPF [facility] AND [id number] 16:03:00 Test Item Value Reference Range Interpretation Comments Micro? (test code = Performed (05/30/16 11:03 Micro?) AM) [facility] AND [id number] 16:03:00 Test Item Value Reference Range Interpretation Comments UA WBC (test code = UA None Seen (05/30/16 WBC) 11:03 AM) [facility] AND [id number] 16:03:00 Test Item Value Reference Range Interpretation Comments UA RBC (test None Seen See_Comment [Automated mes moises] code = UA RBC) (05/30/16 11:03 The system which AM) generated this result transmitted ref erence range: <=2. The reference range was not used to int erpret this result as normal/abnormal . [facility] AND [id number] 16:03:00 Test Item Value Reference Range Interpretation Comments UA Bacteria (test code = None Seen (05/30/16 UA Bacteria) 11:03 AM) [facility] AND [id number] 16:03:00 Test Item Value Reference Range Interpretation Comments UA Leuk Est (test Negative (05/30/16 11:03 code = UA Leuk Est) AM) [facility] AND [id number] 16:03:00 Test Item Value Reference Range Interpretation Comments UA Turbidity (test code = Clear (05/30/16 11:03 UA Turbidity) AM) [facility] AND [id number] 16:03:00 Test Item Value Reference Range Interpretation Comments UA Nitrite (test code Negative (05/30/16 11:03 = UA Nitrite) AM) [facility] AND [id number] 16:03:00 Test Item Value Reference Range Interpretation Comments UA Urobilinogen (test code = UA 0.2 0.1-1.0 Urobilinogen) [facility] AND [id number] 16:03:00 Test Item Value Reference Range Interpretation Comments UA Spec Grav (test code = UA Spec 1.015 1 Grav) [facility] AND [id number] 16:03:00 Test Item Value Reference Range Interpretation Comments UA pH (test code = UA pH) 6.0 1 5.0-8.0 [facility] AND [id number] 16:03:00 Test Item Value Reference Range Interpretation Comments UA Protein (test code Negative (05/30/16 11:03 = UA Protein) AM) [facility] AND [id number] 16:03:00 Test Item Value Reference Range Interpretation Comments UA Color (test code = Yellow *NA*(05/30/16 UA Color) 11:03 AM) [facility] AND [id number] 16:03:00 Test Item Value Reference Range Interpretation Comments UA Ketones (test code Negative *NA*(05/30/16 = UA Ketones) 11:03 AM) [facility] AND [id number] 16:03:00 Test Item Value Reference Range Interpretation Comments UA Glucose (test code Negative (05/30/16 11:03 = UA Glucose) AM) [facility] AND [id number] 16:03:00 Test Item Value Reference Range Interpretation Comments UA Blood (test code = Moderate *ABN*(05/30/16 UA Blood) 11:03 AM) [facility] [id number] 16:03:00 Test Item Value Reference Range Interpretation Comments UA Bili (test code = Negative *NA*(05/30/16 UA Bili) 11:03 AM) [facility] [id number] 16:03:00 Test Item Value Reference Range Interpretation Comments UA Sq Epi (test code = UA Sq Epi) Rare /LPF [facility] [id number] 16:03:00 Test Item Value Reference Range Interpretation Comments Micro? (test code = Performed (05/30/16 11:03 Micro?) AM) [facility] [id number] 16:03:00 Test Item Value Reference Range Interpretation Comments UA WBC (test code = UA None Seen (05/30/16 WBC) 11:03 AM) [facility] [id number] 16:03:00 Test Item Value Reference Range Interpretation Comments UA RBC (test None Seen See_Comment [Automated mes moises] code = UA RBC) (05/30/16 11:03 The system which AM) generated this result transmitted ref erence range: <=2. The reference range was not used to int erpret this result as normal/abnormal . [facility] AND [id number] 16:03:00 Test Item Value Reference Range Interpretation Comments UA Bacteria (test code = None Seen (05/30/16 UA Bacteria) 11:03 AM) [facility] [id number] 15:14:00 Test Item Value Reference Range Interpretation Comments Troponin-I (test code no gt See_Comment [Auto mated message] The = Troponin-I) system which g enerated this result transmit stuart reference range : <=0.40. The reference r jose alfredo was not used to interpr et this result as cherry l/abnormal. [facility] [id number] 15:14:00 Test Item Value Reference Range Interpretation Comments BNP (test code = BNP) [address] [facility] [id number] 15:14:00 Test Item Value Reference Range Interpretation Comments Total CK (test code = Total CK) 64 12-191 [facility]CHEM [id number] 15:14:00 Test Item Value Reference Range Interpretation Comments Lipase Lvl (test code = Lipase Lvl) 201 73-393 [facility] HospitalIrszkoyOMDFBRTDKBSQ0454-13-47 15:14:00 Test Item Value Reference Range Interpretation Comments AGAP (test code = AGAP) 9.2 10.0-20.0 [facility] Hos[id number] 15:14:00 Test Item Value Reference Range Interpretation Comments B/C Ratio (test code = B/C Ratio) 20 6-25 [facility] Hospital[id number] 15:14:00 Test Item Value Reference Range Interpretation Comments Globulin (test code = Globulin) 3.8 2.7-4.2 [facility] HospitalUiszucyIXDDSPMSWIFR4648-61-17 15:14:00 Test Item Value Reference Range Interpretation Comments A/G Ratio (test code = A/G Ratio) 0.9 0.7-1.6 [facility] HospitalQcahjwsYHKCJRXWAEIH9188-02-04 15:14:00 Test Item Value Reference Range Interpretation Comments eGFR (test code = eGFR) 49 [facility] HospitalFtxhzjnTKQSWVWLFVVS1108-43-32 15:14:00 Test Item Value Reference Range Interpretation Comments Albumin Lvl (test code = Albumin Lvl) 3.6 3.5-5.0 [facility] HospitalGvvmcgiLDRXCPPAYQEB7610-15-22 15:14:00 Test Item Value Reference Range Interpretation Comments ALT (test code = ALT) 20 See_Comment [Auto mated message] The system which ge nerated this result transmit stuart reference range : <=65. The reference range was not used to interpr et this result as cherry l/abnormal. [facility] HospitalAktgvmtSATGXONHZOXL5619-38-16 15:14:00 Test Item Value Reference Range Interpretation Comments Alk Phos (test code = Alk Phos) 37 39-136 [facility] HospitalOtmwwwfKVWUDLNICETG2828-69-43 15:14:00 Test Item Value Reference Range Interpretation Comments AST (test code = AST) 14 See_Comment [Auto mated message] The system which ge nerated this result transmit stuart reference range : <=37. The reference range was not used to interpr et this result as cherry l/abnormal. [facility] HospitalCuhykzhVATXXNHINGSG7969-97-60 15:14:00 Test Item Value Reference Range Interpretation Comments Bili Total (test code = Bili Total) 0.3 0.2-1.3 [facility] HospitalTvkzxdhLQKFLKXVBJRR6560-40-17 15:14:00 Test Item Value Reference Range Interpretation Comments Sodium Lvl (test code = Sodium Lvl) 143 135-145 [facility] HospitalOdkntteLYJNBJJKRNNB9535-47-76 15:14:00 Test Item Value Reference Range Interpretation Comments Creatinine Lvl (test code = Creatinine 1.42 0.50-1.40 Lvl) [facility] HospitalOmmbijeCVWRNLXXQJLB1648-54-10 15:14:00 Test Item Value Reference Range Interpretation Comments Potassium Lvl (test code = Potassium 4.2 3.5-5.1 Lvl) [facility] HospitalLvomvpnIGQWZAQANIRQ9317-00-93 15:14:00 Test Item Value Reference Range Interpretation Comments Chloride Lvl (test code = Chloride Lvl) 103 95-109 [facility] HospitalQkquunhTGGLNCDUGXDY8956-44-79 15:14:00 Test Item Value Reference Range Interpretation Comments Calcium Lvl (test code = Calcium Lvl) 8.9 8.5-10.5 [facility] HospitalFhfwbxlCDQYRZVAQSUB7098-61-06 15:14:00 Test Item Value Reference Range Interpretation Comments CO2 (test code = CO2) 35 24-32 [facility] HospitalCiceflyASJUMNOJAOXN2780-03-37 15:14:00 Test Item Value Reference Range Interpretation Comments Total Protein (test code = Total 7.4 6.4-8.4 Protein) [facility] HospitalYgrebifCDJFBYHVEWDF1660-51-27 15:14:00 Test Item Value Reference Range Interpretation Comments BUN (test code = BUN) 28 7-22 [facility] HospitalQqkjxsxZOYCRVQYRMQD8106-40-08 15:14:00 Test Item Value Reference Range Interpretation Comments Glucose Lvl (test code = Glucose Lvl) 141 70-99 [facility] CypressYbnodfjJBUSBWIEYZ9752-02-41 15:14:00 Test Item Value Reference Range Interpretation Comments Basophils # (test code 0.1 See_Comment [Aut omated message] The = Basophils #) system which generated this result tra nsmitted reference range : <=0.2. The reference r jose alfredo was not used to int erpret this result as normal/abnormal . [facility] CypressRlvzapfHOLVHJDVEQ5280-59-12 15:14:00 Test Item Value Reference Range Interpretation Comments Lymphocytes # (test code = Lymphocytes 1.3 1.0-5.5 #) [facility] CypressBktvygbQMIYNFCKWE4874-91-24 15:14:00 Test Item Value Reference Range Interpretation Comments Monocytes # (test code 1.1 See_Comment [Aut omated message] The = Monocytes #) system which generated this result tra nsmitted reference range : <=0.8. The reference r jose alfredo was not used to int erpret this result as normal/abnormal . [facility] CypressZrqslsvNFLTEWSLWE1312-03-56 15:14:00 Test Item Value Reference Range Interpretation Comments Eosinophils # (test code 0.1 See_Comment [A utomated message] The = Eosinophils #) system whic h generated this result tra nsmitted reference range : <=0.5. The reference r jose alfredo was not used to int erpret this result as normal/abnormal . [facility] CypressRjkcwlzUVXNQPRVSO6219-90-06 15:14:00 Test Item Value Reference Range Interpretation Comments Segs-Bands # (test code = Segs-Bands #) 4.4 1.5-8.1 [facility] CypressWxtwmniNYWHWZMUDK4764-42-08 15:14:00 Test Item Value Reference Range Interpretation Comments Basophils (test code = 0.9 See_Comment [Aut omated message] The Basophils) system which ge nerated this result tra nsmitted reference range : <=1.0. The reference r jose alfrdeo was not used to int erpret this result as normal/abnormal . [facility]ressHuxfbspFZFQHNBDFD1034-89-92 15:14:00 Test Item Value Reference Range Interpretation Comments Monocytes (test code = Monocytes) 15.3 2.0-12.0 [facility]ressPoubqdzEYOPMXYIQS5889-55-59 15:14:00 Test Item Value Reference Range Interpretation Comments Eosinophils (test code = 2.1 See_Comment [A utomated message] The Eosinophils) system which ge nerated this result tra nsmitted reference range : <=4.0. The reference r jose alfredo was not used to int erpret this result as normal/abnormal . [facility] CypressLepuwxaRPMDLXPSCB4616-64-20 15:14:00 Test Item Value Reference Range Interpretation Comments Lymphocytes (test code = Lymphocytes) 18.2 20.0-40.0 [facility] CypressChtbrycEWUWTKKIMM6763-44-38 15:14:00 Test Item Value Reference Range Interpretation Comments Segs (test code = Segs) 63.5 45.0-75.0 [facility]yw[facility]gejDPWEMHXGWW5588-90-58 15:14:00 Test Item Value Reference Range Interpretation Comments Hct (test code = Hct) 39.9 42.0-54.0 [facility] HospitalLumybdoSPPDZYQEUH7443-13-61 15:14:00 Test Item Value Reference Range Interpretation Comments MCH (test code = MCH) 30.6 pg 27.0-31.0 [facility] HospitalXjddvdqSMJVKNYYCD2547-46-11 15:14:00 Test Item Value Reference Range Interpretation Comments MCV (test code = MCV) 91.2 80.0-94.0 [facility] HospitalVwczwrpSUGICNBHDY7563-75-43 15:14:00 Test Item Value Reference Range Interpretation Comments Hgb (test code = Hgb) 13.4 14.0-18.0 [facility] HospitalHrmbjrtYMQYNERXSS6393-82-83 15:14:00 Test Item Value Reference Range Interpretation Comments RBC (test code = RBC) 4.37 4.70-6.10 [facility] HospitalGsqkqwgYFZYSCZWXG8780-64-79 15:14:00 Test Item Value Reference Range Interpretation Comments WBC (test code = WBC) 6.9 3.7-10.4 [facility] HospitalDtxnwowENVWUBMBKL0726-13-91 15:14:00 Test Item Value Reference Range Interpretation Comments Platelet (test code = Platelet) 174 133-450 [facility] CypressFqzarllVEKNETJYLI5452-15-94 15:14:00 Test Item Value Reference Range Interpretation Comments MPV (test code = MPV) 10.3 7.4-10.4 [facility] HospitalLunzibuHHWAYBSQUI0965-05-62 15:14:00 Test Item Value Reference Range Interpretation Comments MCHC (test code = MCHC) 33.6 32.0-36.0 [facility] HospitalQxsngrqQXQHGIMAXQ4288-00-00 15:14:00 Test Item Value Reference Range Interpretation Comments RDW (test code = RDW) 13.8 11.5-14.5 [facility] ZSMQDUN7931-74-65 15:14:00 Test Item Value Reference Range Interpretation Comments Troponin-I (test code no gt See_Comment [Auto mated message] The = Troponin-I) system which g enerated this result transmit stuart reference range : <=0.40. The reference r jose alfredo was not used to interpr et this result as cherry l/abnormal. [facility]ARD[facility] SOSDBRF9497-45-36 15:14:00 Test Item Value Reference Range Interpretation Comments BNP (test code = BNP) 32 [facility]ieCARAC SWNZZOG9601-70-44 15:14:00 Test Item Value Reference Range Interpretation Comments Total CK (test code = Total CK) 64 12-191 [facility]annCHEM EQYVA4666-05-12 15:14:00 Test Item Value Reference Range Interpretation Comments Lipase Lvl (test code = Lipase Lvl) 201 73-393 [facility] HospitalLwrvfwbIFMNKUIJTOTO4907-22-23 15:14:00 Test Item Value Reference Range Interpretation Comments AGAP (test code = AGAP) 9.2 10.0-20.0 [facility] HospitalCmuwomuHFFQTBZFHESW3583-33-34 15:14:00 Test Item Value Reference Range Interpretation Comments B/C Ratio (test code = B/C Ratio) 20 6-25 [facility] HospitalBvqtbjaAZJZLEJVJFGK7225-49-63 15:14:00 Test Item Value Reference Range Interpretation Comments Globulin (test code = Globulin) 3.8 2.7-4.2 [facility] HospitalYzopixsBFBQJGMMFBCS8629-01-87 15:14:00 Test Item Value Reference Range Interpretation Comments A/G Ratio (test code = A/G Ratio) 0.9 0.7-1.6 [facility] HospitalWesdoaeCAZFCUZQMXZZ6776-57-61 15:14:00 Test Item Value Reference Range Interpretation Comments eGFR (test code = eGFR) 49 [facility] HospitalMdvvngySIIGLGBKJKCT9298-44-07 15:14:00 Test Item Value Reference Range Interpretation Comments Albumin Lvl (test code = Albumin Lvl) 3.6 3.5-5.0 [facility] HospitalHvgtxogLKVXKQXRMBEA0209-92-77 15:14:00 Test Item Value Reference Range Interpretation Comments ALT (test code = ALT) 20 See_Comment [Auto mated message] The system which ge nerated this result transmit stuart reference range : <=65. The reference range was not used to interpr et this result as cherry l/abnormal. [facility] HospitalOmhhukgDTTMRKZVCWJZ6326-10-83 15:14:00 Test Item Value Reference Range Interpretation Comments Alk Phos (test code = Alk Phos) 37 39-136 [facility] HospitalNvvkucuLIDITCPIOMOE8439-43-36 15:14:00 Test Item Value Reference Range Interpretation Comments AST (test code = AST) 14 See_Comment [Auto mated message] The system which ge nerated this result transmit stuart reference range : <=37. The reference range was not used to interpr et this result as cherry l/abnormal. [facility] HospitalLonlqrvXVIBGFOWFJFO2479-36-49 15:14:00 Test Item Value Reference Range Interpretation Comments Bili Total (test code = Bili Total) 0.3 0.2-1.3 [facility] HospitalMgmheshCSJIPBUMRDEU2191-46-68 15:14:00 Test Item Value Reference Range Interpretation Comments Sodium Lvl (test code = Sodium Lvl) 143 135-145 [facility] HospitalCdieslnMJWRMOVHTWSZ1457-68-23 15:14:00 Test Item Value Reference Range Interpretation Comments Creatinine Lvl (test code = Creatinine 1.42 0.50-1.40 Lvl) [facility] HospitalZyhixdqVDRUQHHHQYAG5693-11-07 15:14:00 Test Item Value Reference Range Interpretation Comments Potassium Lvl (test code = Potassium 4.2 3.5-5.1 Lvl) [facility] HospitalJiqsskvLASVLCCLFSEQ1550-26-20 15:14:00 Test Item Value Reference Range Interpretation Comments Chloride Lvl (test code = Chloride Lvl) 103 95-109 [facility] HospitalTnmyiduBBDDMMPVYZGQ6633-05-42 15:14:00 Test Item Value Reference Range Interpretation Comments Calcium Lvl (test code = Calcium Lvl) 8.9 8.5-10.5 [facility] HospitalLcclfbbDJPYUELHKWFM8029-50-55 15:14:00 Test Item Value Reference Range Interpretation Comments CO2 (test code = CO2) 35 24-32 [facility] HospitalUqilgbbVNVBCCMAAKYY6687-86-62 15:14:00 Test Item Value Reference Range Interpretation Comments Total Protein (test code = Total 7.4 6.4-8.4 Protein) [facility] HospitalMowooapUXTGDRYLUMUK9575-35-81 15:14:00 Test Item Value Reference Range Interpretation Comments BUN (test code = BUN) 28 7-22 [facility] HospitalXqjmhasPEWHFCRJCTXB6531-29-92 15:14:00 Test Item Value Reference Range Interpretation Comments Glucose Lvl (test code = Glucose Lvl) 141 70-99 [facility]ieLlqbtllMXWSPXYVOU2046-52-20 15:14:00 Test Item Value Reference Range Interpretation Comments Basophils # (test code 0.1 See_Comment [Aut omated message] The = Basophils #) system which generated this result tra nsmitted reference range : <=0.2. The reference r jose alfredo was not used to int erpret this result as normal/abnormal . [facility]ressMgbdnxqJSJKXKAFCP6725-91-52 15:14:00 Test Item Value Reference Range Interpretation Comments Lymphocytes # (test code = Lymphocytes 1.3 1.0-5.5 #) [facility] CypressDxdipufWEURFKLBSZ8799-87-95 15:14:00 Test Item Value Reference Range Interpretation Comments Monocytes # (test code 1.1 See_Comment [Aut omated message] The = Monocytes #) system which generated this result tra nsmitted reference range : <=0.8. The reference r jose alfredo was not used to int erpret this result as normal/abnormal . [facility]ressPmepxgpMRWITTXRXV5500-21-34 15:14:00 Test Item Value Reference Range Interpretation Comments Eosinophils # (test code 0.1 See_Comment [A utomated message] The = Eosinophils #) system wh h generated this result tra nsmitted reference range : <=0.5. The reference r jose alfredo was not used to int erpret this result as normal/abnormal . [facility] CypressWyttqbdTCMRNZGVPE8852-63-76 15:14:00 Test Item Value Reference Range Interpretation Comments Segs-Bands # (test code = Segs-Bands #) 4.4 1.5-8.1 [facility] CypressGimoaqqTYSULJYOYY4377-84-00 15:14:00 Test Item Value Reference Range Interpretation Comments Basophils (test code = 0.9 See_Comment [Aut omated message] The Basophils) system which ge nerated this result tra nsmitted reference range : <=1.0. The reference r jose alfredo was not used to int erpret this result as normal/abnormal . [facility] CypressWjpbblpPABFNBAKWG8307-20-49 15:14:00 Test Item Value Reference Range Interpretation Comments Monocytes (test code = Monocytes) 15.3 2.0-12.0 [facility] CypressGrmlccqWYKAKKRXDZ3707-54-68 15:14:00 Test Item Value Reference Range Interpretation Comments Eosinophils (test code = 2.1 See_Comment [A utomated message] The Eosinophils) system which ge nerated this result tra nsmitted reference range : <=4.0. The reference r jose alfredo was not used to int erpret this result as normal/abnormal . [facility] HospitalKwkrxgkXDHPUBFGCF8897-98-87 15:14:00 Test Item Value Reference Range Interpretation Comments Lymphocytes (test code = Lymphocytes) 18.2 20.0-40.0 [facility] HospitalJjjmgxlMIATYGZOYJ2244-17-48 15:14:00 Test Item Value Reference Range Interpretation Comments Segs (test code = Segs) 63.5 45.0-75.0 [facility] CypressGafoemrIAXYOOVGAO8126-13-61 15:14:00 Test Item Value Reference Range Interpretation Comments Hct (test code = Hct) 39.9 42.0-54.0 [facility] HospitalXlfqgqwDIHUQLGNWV4712-59-28 15:14:00 Test Item Value Reference Range Interpretation Comments MCH (test code = MCH) 30.6 pg 27.0-31.0 [facility] CypressRyvdtigUKLAGONVOC5304-16-92 15:14:00 Test Item Value Reference Range Interpretation Comments MCV (test code = MCV) 91.2 80.0-94.0 [facility] CypressKawwveuXBUEWYANMP3559-49-09 15:14:00 Test Item Value Reference Range Interpretation Comments Hgb (test code = Hgb) 13.4 14.0-18.0 [facility] CypressPkudmgtUZCRVRAEMC2676-97-74 15:14:00 Test Item Value Reference Range Interpretation Comments RBC (test code = RBC) 4.37 4.70-6.10 [facility] CypressViqnpbtBNESTNSHXV1313-56-37 15:14:00 Test Item Value Reference Range Interpretation Comments WBC (test code = WBC) 6.9 3.7-10.4 [facility] CypressPistsitDLMJATNNMK3861-75-97 15:14:00 Test Item Value Reference Range Interpretation Comments Platelet (test code = Platelet) 174 133-450 [facility] HospitalRgnyoxaEXEAONRMAI3915-16-86 15:14:00 Test Item Value Reference Range Interpretation Comments MPV (test code = MPV) 10.3 7.4-10.4 [facility] CypressFmuzbhcKMGHVKIYYM6443-75-01 15:14:00 Test Item Value Reference Range Interpretation Comments MCHC (test code = MCHC) 33.6 32.0-36.0 [facility] CypressBttwjhrNLOUKAANGM6508-61-03 15:14:00 Test Item Value Reference Range Interpretation Comments RDW (test code = RDW) 13.8 11.5-14.5 [facility] AHFRJRI5362-79[facility] 15:14:00 Test Item Value Reference Range Interpretation Comments Troponin-I (test code no gt See_Comment [Auto mated message] The = Troponin-I) system which g enerated this result transmit stuart reference range : <=0.40. The reference r jose alfredo was not used to interpr et this result as cherry l/abnormal. [facility] StephenvilleRawbotsCARDIAC NKOVETR6365-17-07 15:14:00 Test Item Value Reference Range Interpretation Comments BNP (test code = BNP) 32 [facility] StephenvilleannCARDIAC CQEPHBW4690-40-26 15:14:00 Test Item Value Reference Range Interpretation Comments Total CK (test code = Total CK) 64 12-191 [facility] [employer] RealtyCHEM IZCRP7693-49-07 15:14:00 Test Item Value Reference Range Interpretation Comments Lipase Lvl (test code = Lipase Lvl) 201 73-393 [facility] LrbqsrvJZHWXAEQXSGM4711-36-63 15:14:00 Test Item Value Reference Range Interpretation Comments AGAP (test code = AGAP) 9.2 10.0-20.0 [facility] StephenvilleIdpjvasYALAZKQRHWJH2706-76-69 15:14:00 Test Item Value Reference Range Interpretation Comments B/C Ratio (test code = B/C Ratio) 20 6-25 [facility] StephenvilleOuaxltySGOMMUSSJZAF4655-79-14 15:14:00 Test Item Value Reference Range Interpretation Comments Globulin (test code = Globulin) 3.8 2.7-4.2 [facility] StephenvilleJauzplnLZCBZFFRFKGL2838-56-51 15:14:00 Test Item Value Reference Range Interpretation Comments A/G Ratio (test code = A/G Ratio) 0.9 0.7-1.6 [facility] TdvwkybGVDGBEDAEBAJ7014-85-60 15:14:00 Test Item Value Reference Range Interpretation Comments eGFR (test code = eGFR) 49 [facility] StephenvilleAniltodJCHHFAHRBGJZ0745-70-01 15:14:00 Test Item Value Reference Range Interpretation Comments Albumin Lvl (test code = Albumin Lvl) 3.6 3.5-5.0 [facility] StephenvilleGrpnzbaICIOHHFJZXYK0398-51-02 15:14:00 Test Item Value Reference Range Interpretation Comments ALT (test code = ALT) 20 See_Comment [Auto mated message] The system which ge nerated this result transmit stuart reference range : <=65. The reference range was not used to interpr et this result as cherry l/abnormal. [facility] HospitalTnbclglLJFLHQCOMBDC7123-06-31 15:14:00 Test Item Value Reference Range Interpretation Comments Alk Phos (test code = Alk Phos) 37 39-136 [facility] HospitalTvmztscKBPYWQAAZEEY9407-24-99 15:14:00 Test Item Value Reference Range Interpretation Comments AST (test code = AST) 14 See_Comment [Auto mated message] The system which ge nerated this result transmit stuart reference range : <=37. The reference range was not used to interpr et this result as cherry l/abnormal. [facility] HospitalQmluygtJDOOFVMYTNWY2879-16-26 15:14:00 Test Item Value Reference Range Interpretation Comments Bili Total (test code = Bili Total) 0.3 0.2-1.3 [facility] HospitalTwnxciwXVTZCQDIIBZW5619-18-85 15:14:00 Test Item Value Reference Range Interpretation Comments Sodium Lvl (test code = Sodium Lvl) 143 135-145 [facility] HospitalEdgvzsfOIGSZWKJGPED4804-57-90 15:14:00 Test Item Value Reference Range Interpretation Comments Creatinine Lvl (test code = Creatinine 1.42 0.50-1.40 Lvl) [facility] HospitalDjlyqblXVNHOERTZSGE0129-88-93 15:14:00 Test Item Value Reference Range Interpretation Comments Potassium Lvl (test code = Potassium 4.2 3.5-5.1 Lvl) [facility] HospitalDqjptseLDPGZFZTCVAR1296-16-51 15:14:00 Test Item Value Reference Range Interpretation Comments Chloride Lvl (test code = Chloride Lvl) 103 95-109 [facility] HospitalFyyngbsOGXPQYCSMXOS2068-32-50 15:14:00 Test Item Value Reference Range Interpretation Comments Calcium Lvl (test code = Calcium Lvl) 8.9 8.5-10.5 [facility] HospitalAdzyaupVHAPABIYAWLM6276-01-41 15:14:00 Test Item Value Reference Range Interpretation Comments CO2 (test code = CO2) 35 24-32 [facility] HospitalJfmyliqQEJHNVBQUYYQ4659-91-74 15:14:00 Test Item Value Reference Range Interpretation Comments Total Protein (test code = Total 7.4 6.4-8.4 Protein) [facility] HospitalCkkeyglXHKSUVNLPCWY2829-83-86 15:14:00 Test Item Value Reference Range Interpretation Comments BUN (test code = BUN) 28 7-22 [facility] HospitalWlaqqbdVYLDOIIDDOXA0439-29-53 15:14:00 Test Item Value Reference Range Interpretation Comments Glucose Lvl (test code = Glucose Lvl) 141 70-99 [facility] CypressCuyhsjrKJYLZEOEPM3680-66-73 15:14:00 Test Item Value Reference Range Interpretation Comments Basophils # (test code 0.1 See_Comment [Aut omated message] The = Basophils #) system which generated this result tra nsmitted reference range : <=0.2. The reference r jose alfredo was not used to int erpret this result as normal/abnormal . [facility] CypressCowtpneALSUHGBIBZ5944-77-49 15:14:00 Test Item Value Reference Range Interpretation Comments Lymphocytes # (test code = Lymphocytes 1.3 1.0-5.5 #) [facility] CypressGnmbscaBGMTHZYIAV0135-13-35 15:14:00 Test Item Value Reference Range Interpretation Comments Monocytes # (test code 1.1 See_Comment [Aut omated message] The = Monocytes #) system which generated this result tra nsmitted reference range : <=0.8. The reference r jose alfredo was not used to int erpret this result as normal/abnormal . [facility] CypressJtnpjnoRWDBMDNLMR2918-92-38 15:14:00 Test Item Value Reference Range Interpretation Comments Eosinophils # (test code 0.1 See_Comment [A utomated message] The = Eosinophils #) system whic h generated this result tra nsmitted reference range : <=0.5. The reference r jose alfredo was not used to int erpret this result as normal/abnormal . [facility] CypressAcvzkanIKXVYAWAKJ0462-82-33 15:14:00 Test Item Value Reference Range Interpretation Comments Segs-Bands # (test code = Segs-Bands #) 4.4 1.5-8.1 [facility] CypressQdahnauFIXTPLEUMW5037-68-48 15:14:00 Test Item Value Reference Range Interpretation Comments Basophils (test code = 0.9 See_Comment [Aut omated message] The Basophils) system which ge nerated this result tra nsmitted reference range : <=1.0. The reference r jose lafredo was not used to int erpret this result as normal/abnormal . [facility] CypressZrguswuJNIWDTZPJF5852-34-13 15:14:00 Test Item Value Reference Range Interpretation Comments Monocytes (test code = Monocytes) 15.3 2.0-12.0 [facility] CypressKvqulqqPCITBYBPYC2125-53-41 15:14:00 Test Item Value Reference Range Interpretation Comments Eosinophils (test code = 2.1 See_Comment [A utomated message] The Eosinophils) system which ge nerated this result tra nsmitted reference range : <=4.0. The reference r jose alfredo was not used to int erpret this result as normal/abnormal . [facility] CypressNjgxoklTCSYPTGBDY9723-85-85 15:14:00 Test Item Value Reference Range Interpretation Comments Lymphocytes (test code = Lymphocytes) 18.2 20.0-40.0 [facility] CypressSwrnsasBPHWCILOHX5761-66-86 15:14:00 Test Item Value Reference Range Interpretation Comments Segs (test code = Segs) 63.5 45.0-75.0 [facility] CypressEfsuirmOIGSDKWAKY8460-13-28 15:14:00 Test Item Value Reference Range Interpretation Comments Hct (test code = Hct) 39.9 42.0-54.0 [facility] CypressVnlgtivWATSBKUMFZ3125-39-08 15:14:00 Test Item Value Reference Range Interpretation Comments MCH (test code = MCH) 30.6 pg 27.0-31.0 [facility] CypressKxjlvscWEAKMUXCJR6908-66-96 15:14:00 Test Item Value Reference Range Interpretation Comments MCV (test code = MCV) 91.2 80.0-94.0 [facility] CypressRskvxmwMHWUQAMUWX6271-85-03 15:14:00 Test Item Value Reference Range Interpretation Comments Hgb (test code = Hgb) 13.4 14.0-18.0 [facility] CypressEjepijiXLTDRXAPUS6431-50-52 15:14:00 Test Item Value Reference Range Interpretation Comments RBC (test code = RBC) 4.37 4.70-6.10 [facility] CypressTniasbgFDSJFNUIJC5363-91-11 15:14:00 Test Item Value Reference Range Interpretation Comments WBC (test code = WBC) 6.9 3.7-10.4 [facility] CypressAeyvzfuFWKVCBBWBQ2875-36-42 15:14:00 Test Item Value Reference Range Interpretation Comments Platelet (test code = Platelet) 174 133-450 [facility] CypressJaeruauVSBEGBHJOY9367-96-54 15:14:00 Test Item Value Reference Range Interpretation Comments MPV (test code = MPV) 10.3 7.4-10.4 [facility] CypressJguqddwFNHKQXYMVI4194-15-41 15:14:00 Test Item Value Reference Range Interpretation Comments MCHC (test code = MCHC) 33.6 32.0-36.0 [facility]ieNllnszqHKMAVXCCPD2018-70-06 15:14:00 Test Item Value Reference Range Interpretation Comments RDW (test code = RDW) 13.8 11.5-14.5 [facility]ieCHEM VEWXP3976-32-34 10:00:00 Test Item Value Reference Range Interpretation Comments Magnesium Lvl (test code = Magnesium 1.6 1.8-2.4 Lvl) [facility] HospitalFdzxpqyYQUUKRTEVBCY7242-41-07 10:00:00 Test Item Value Reference Range Interpretation Comments AGAP (test code = AGAP) 8.5 10.0-20.0 [facility] HospitalZzcskvxNXWVWUDUAOUM1346-98-37 10:00:00 Test Item Value Reference Range Interpretation Comments eGFR (test code = eGFR) 86 [facility] HospitalSzujgnsQHUJHTRUMKGT2489-51-91 10:00:00 Test Item Value Reference Range Interpretation Comments Sodium Lvl (test code = Sodium Lvl) 137 135-145 [facility] HospitalRidxlegEYFEOZBMYXOB8423-59-63 10:00:00 Test Item Value Reference Range Interpretation Comments Potassium Lvl (test code = Potassium 3.5 3.5-5.1 Lvl) [facility] HospitalGocofmhLLFDPUYCQVZD8935-11-25 10:00:00 Test Item Value Reference Range Interpretation Comments Calcium Lvl (test code = Calcium Lvl) 8.4 8.5-10.5 [facility] HospitalXzuhordPHQMEDCYZUAJ4998-84-48 10:00:00 Test Item Value Reference Range Interpretation Comments CO2 (test code = CO2) 30 24-32 [facility] HospitalYceyojjHTHDGKRTBCKE1855-44-79 10:00:00 Test Item Value Reference Range Interpretation Comments Chloride Lvl (test code = Chloride Lvl) 102 95-109 [facility] HospitalPjvanikAWKAIFBXANIX8455-77-72 10:00:00 Test Item Value Reference Range Interpretation Comments Creatinine Lvl (test code = Creatinine 0.9 0.5-1.4 Lvl) [facility] HospitalLetfdzgHYUHLHKIIFJK5251-77-74 10:00:00 Test Item Value Reference Range Interpretation Comments Glucose Lvl (test code = Glucose Lvl) 127 70-99 [facility] HospitalCbwshmsUVDNEFCPUTCP0165-39-40 10:00:00 Test Item Value Reference Range Interpretation Comments BUN (test code = BUN) 9 7-22 [facility] CypressPsptdusVTJKJDJHVB4264-47-09 10:00:00 Test Item Value Reference Range Interpretation Comments Basophils # (test code 0.1 See_Comment [Aut omated message] The = Basophils #) system which generated this result tra nsmitted reference range : <=0.2. The reference r jose alfredo was not used to int erpret this result as normal/abnormal . [facility] CypressRshepopKELXQWSBEA2511-53-47 10:00:00 Test Item Value Reference Range Interpretation Comments Eosinophils # (test code 0.1 See_Comment [A utomated message] The = Eosinophils #) system whic h generated this result tra nsmitted reference range : <=0.5. The reference r jose alfredo was not used to int erpret this result as normal/abnormal . [facility] CypressUcxjfdtDNLWRVWEIP9952-53-20 10:00:00 Test Item Value Reference Range Interpretation Comments Monocytes # (test code 0.9 See_Comment [Aut omated message] The = Monocytes #) system which generated this result tra nsmitted reference range : <=0.8. The reference r jose alfredo was not used to int erpret this result as normal/abnormal . [facility] CypressFwzekhjQALSVHMLGU4485-14-43 10:00:00 Test Item Value Reference Range Interpretation Comments Lymphocytes # (test code = Lymphocytes 2.0 1.0-5.5 #) [facility] [place]YxqqcvrACFFMYAHBJ3329-12-18 10:00:00 Test Item Value Reference Range Interpretation Comments Segs (test code = Segs) 59.5 45.0-75.0 [facility] CypressWpvykhnTCZUOGVSEN6029-86-92 10:00:00 Test Item Value Reference Range Interpretation Comments Lymphocytes (test code = Lymphocytes) 25.6 20.0-40.0 [facility] CypressUpmivgoKYIFVZIGPQ6475-90-34 10:00:00 Test Item Value Reference Range Interpretation Comments Basophils (test code = 1.6 See_Comment [Aut omated message] The Basophils) system which ge nerated this result tra nsmitted reference range : <=1.0. The reference r jose alfredo was not used to int erpret this result as normal/abnormal . [facility] CypressMhibbpvIWLIDGIZEI3338-49-49 10:00:00 Test Item Value Reference Range Interpretation Comments Eosinophils (test code = 1.2 See_Comment [A utomated message] The Eosinophils) system which ge nerated this result tra nsmitted reference range : <=4.0. The reference r jose alfredo was not used to int erpret this result as normal/abnormal . [facility] CypressUuujmolCKJEZWTRHW9118-55-22 10:00:00 Test Item Value Reference Range Interpretation Comments Segs-Bands # (test code = Segs-Bands #) 4.6 1.5-8.1 [facility] CypressHmvruvsEROIFYNBFK0825-29-67 10:00:00 Test Item Value Reference Range Interpretation Comments Monocytes (test code = Monocytes) 12.1 2.0-12.0 [facility] CypressZirjnbqJWBXQNUQWP1492-98-94 10:00:00 Test Item Value Reference Range Interpretation Comments MCH (test code = MCH) 30.5 pg 27.0-31.0 [facility] CypressBtjukrkRCXTWXXRSL6103-68-37 10:00:00 Test Item Value Reference Range Interpretation Comments MCHC (test code = MCHC) 34.0 32.0-36.0 [facility] CypressOmfvzgeSHRLBWZZBA4278-01-36 10:00:00 Test Item Value Reference Range Interpretation Comments RDW (test code = RDW) 13.3 11.5-14.5 [facility] CypressPpwtzczAOVRLOMZAC8006-74-89 10:00:00 Test Item Value Reference Range Interpretation Comments Hct (test code = Hct) 31.0 42.0-54.0 [facility] CypressTewgujtDGMJYGHHOH5406-07-92 10:00:00 Test Item Value Reference Range Interpretation Comments MCV (test code = MCV) 89.6 80.0-94.0 [facility] CypressBusllwmHWWDGPZYIH0734-37-97 10:00:00 Test Item Value Reference Range Interpretation Comments MPV (test code = MPV) 9.4 7.4-10.4 [facility] CypressOyhuzqtETYLCZKVEA8181-97-68 10:00:00 Test Item Value Reference Range Interpretation Comments Platelet (test code = Platelet) 188 133-450 [facility] CypressPpxsyopMBVTMHUPOD1240-96-24 10:00:00 Test Item Value Reference Range Interpretation Comments Hgb (test code = Hgb) 10.5 14.0-18.0 [facility] CypressEzzuoscGDUEEBTBRY7017-95-97 10:00:00 Test Item Value Reference Range Interpretation Comments WBC (test code = WBC) 7.7 3.7-10.4 [facility] CypressYnetdyoVVTEJYBPMG8434-04-71 10:00:00 Test Item Value Reference Range Interpretation Comments RBC (test code = RBC) 3.46 4.70-6.10 [facility] LRXFM0289-58-28 10:00:00 Test Item Value Reference Range Interpretation Comments Magnesium Lvl (test code = Magnesium 1.6 1.8-2.4 Lvl) [facility] HospitalHahviibFNGWEHNSYHZW6719-26-58 10:00:00 Test Item Value Reference Range Interpretation Comments AGAP (test code = AGAP) 8.5 10.0-20.0 [facility] HospitalPkxnmrqOGRGANXGJLRL6545-81-86 10:00:00 Test Item Value Reference Range Interpretation Comments eGFR (test code = eGFR) 86 [facility] HospitalFrvjbidQGRFPFRZFJXS9400-36-27 10:00:00 Test Item Value Reference Range Interpretation Comments Sodium Lvl (test code = Sodium Lvl) 137 135-145 [facility] HospitalUdoeobjSRTKEKSOPAZW3435-37-61 10:00:00 Test Item Value Reference Range Interpretation Comments Potassium Lvl (test code = Potassium 3.5 3.5-5.1 Lvl) [facility] HospitalSvmvepzIDNEVNUKBEUJ6428-68-54 10:00:00 Test Item Value Reference Range Interpretation Comments Calcium Lvl (test code = Calcium Lvl) 8.4 8.5-10.5 [facility] HospitalPziwdrtGMKSHOLUYHZM6878-98-09 10:00:00 Test Item Value Reference Range Interpretation Comments CO2 (test code = CO2) 30 24-32 [facility] HospitalWpiavypZUJWNUEKXUII6747-08-33 10:00:00 Test Item Value Reference Range Interpretation Comments Chloride Lvl (test code = Chloride Lvl) 102 95-109 [facility] HospitalLldefolFOOKTJBZCOXC5733-73-11 10:00:00 Test Item Value Reference Range Interpretation Comments Creatinine Lvl (test code = Creatinine 0.9 0.5-1.4 Lvl) [facility] HospitalEzkhxopXMOROOARJNHL9139-92-96 10:00:00 Test Item Value Reference Range Interpretation Comments Glucose Lvl (test code = Glucose Lvl) 127 70-99 [facility] HospitalJwrxlkpJXKCYWKSCIVN2521-00-38 10:00:00 Test Item Value Reference Range Interpretation Comments BUN (test code = BUN) 9 7-22 [facility]ieFevsaxwLEXXNZZBSS1574-48-71 10:00:00 Test Item Value Reference Range Interpretation Comments Basophils # (test code 0.1 See_Comment [Aut omated message] The = Basophils #) system which generated this result tra nsmitted reference range : <=0.2. The reference r jose alfredo was not used to int erpret this result as normal/abnormal . [facility] CypressLuapcjqKHAVWCYYYF5115-35-78 10:00:00 Test Item Value Reference Range Interpretation Comments Eosinophils # (test code 0.1 See_Comment [A utomated message] The = Eosinophils #) system whic h generated this result tra nsmitted reference range : <=0.5. The reference r jose alfredo was not used to int erpret this result as normal/abnormal . [facility] CypressAmmgzphYOQQUGFRBL6537-38-14 10:00:00 Test Item Value Reference Range Interpretation Comments Monocytes # (test code 0.9 See_Comment [Aut omated message] The = Monocytes #) system which generated this result tra nsmitted reference range : <=0.8. The reference r jose alfredo was not used to int erpret this result as normal/abnormal . [facility] CypressKujxdxuSBWNIBHVHN8823-14-71 10:00:00 Test Item Value Reference Range Interpretation Comments Lymphocytes # (test code = Lymphocytes 2.0 1.0-5.5 #) [facility] CypressPwvzaaePRDEUXMCXV5522-02-04 10:00:00 Test Item Value Reference Range Interpretation Comments Segs (test code = Segs) 59.5 45.0-75.0 [facility] CypressClfagicFSZNSQVGAK5593-18-51 10:00:00 Test Item Value Reference Range Interpretation Comments Lymphocytes (test code = Lymphocytes) 25.6 20.0-40.0 [facility] CypressJmyjnzmGOBKWSVUDE7626-60-77 10:00:00 Test Item Value Reference Range Interpretation Comments Basophils (test code = 1.6 See_Comment [Aut omated message] The Basophils) system which ge nerated this result tra nsmitted reference range : <=1.0. The reference r jose alfredo was not used to int erpret this result as normal/abnormal . [facility] CypressTezsbhnXJBCEFSGAZ9818-27-16 10:00:00 Test Item Value Reference Range Interpretation Comments Eosinophils (test code = 1.2 See_Comment [A utomated message] The Eosinophils) system which ge nerated this result tra nsmitted reference range : <=4.0. The reference r jose alfredo was not used to int erpret this result as normal/abnormal . [facility] CypressOqqzinxHPGKQMWXBU1870-97-02 10:00:00 Test Item Value Reference Range Interpretation Comments Segs-Bands # (test code = Segs-Bands #) 4.6 1.5-8.1 [facility] CypressVcdqceiHUMQEJNRDJ9750-55-64 10:00:00 Test Item Value Reference Range Interpretation Comments Monocytes (test code = Monocytes) 12.1 2.0-12.0 [facility] CypressEizlprqBNDSWBVHWJ5008-61-90 10:00:00 Test Item Value Reference Range Interpretation Comments MCH (test code = MCH) 30.5 pg 27.0-31.0 [facility] CypressTfxwfsiARLTSHUFUS2069-35-68 10:00:00 Test Item Value Reference Range Interpretation Comments MCHC (test code = MCHC) 34.0 32.0-36.0 [facility] CypressZwljqvrIZLXWFVLOG4979-91-69 10:00:00 Test Item Value Reference Range Interpretation Comments RDW (test code = RDW) 13.3 11.5-14.5 [facility] CypressDhrorevQGNCMVIWQL7184-21-85 10:00:00 Test Item Value Reference Range Interpretation Comments Hct (test code = Hct) 31.0 42.0-54.0 [facility] CypressYxryxfrDNOIAITNEH6786-20-60 10:00:00 Test Item Value Reference Range Interpretation Comments MCV (test code = MCV) 89.6 80.0-94.0 [facility] CypressHughgcgINGMETIZLI7302-52-01 10:00:00 Test Item Value Reference Range Interpretation Comments MPV (test code = MPV) 9.4 7.4-10.4 [facility] CypressIkmxnrbKYMFPHVZSM6223-67-27 10:00:00 Test Item Value Reference Range Interpretation Comments Platelet (test code = Platelet) 188 133-450 [facility] CypressDitmksqTELXQYKKHG0493-02-66 10:00:00 Test Item Value Reference Range Interpretation Comments Hgb (test code = Hgb) 10.5 14.0-18.0 [facility] CypressGwwbprnTQZCALYJAJ6784-01-09 10:00:00 Test Item Value Reference Range Interpretation Comments WBC (test code = WBC) 7.7 3.7-10.4 [facility] CypressCayqzndHYWOBXEKBU5492-95-30 10:00:00 Test Item Value Reference Range Interpretation Comments RBC (test code = RBC) 3.46 4.70-6.10 [facility]2015-06-21 10:00:00 Test Item Value Reference Range Interpretation Comments Magnesium Lvl (test code = Magnesium 1.6 1.8-2.4 Lvl) [facility] HospitalUmbcxvzQTKVEEMOXDWX8200-02-16 10:00:00 Test Item Value Reference Range Interpretation Comments AGAP (test code = AGAP) 8.5 10.0-20.0 [facility] HospitalDhnlkqgWVDBUVNXXSYX2356-73-13 10:00:00 Test Item Value Reference Range Interpretation Comments eGFR (test code = eGFR) 86 [facility] HospitalRkxuygkTPELHHQNHRCV6837-31-48 10:00:00 Test Item Value Reference Range Interpretation Comments Sodium Lvl (test code = Sodium Lvl) 137 135-145 [facility] HospitalXvtghnvLMHWRPWQEABH8763-66-36 10:00:00 Test Item Value Reference Range Interpretation Comments Potassium Lvl (test code = Potassium 3.5 3.5-5.1 Lvl) [facility] HospitalWsrepnhKCXLMXUXZJOE8313-80-44 10:00:00 Test Item Value Reference Range Interpretation Comments Calcium Lvl (test code = Calcium Lvl) 8.4 8.5-10.5 [facility] HospitalDjhrmrtKNNSCDUZRDQW8075-53-31 10:00:00 Test Item Value Reference Range Interpretation Comments CO2 (test code = CO2) 30 24-32 [facility] HospitalBekhujhGKHOACHXAXOU7251-85-08 10:00:00 Test Item Value Reference Range Interpretation Comments Chloride Lvl (test code = Chloride Lvl) 102 95-109 [facility] HospitalVijgpcbXSILDYTKQNCE4566-03-76 10:00:00 Test Item Value Reference Range Interpretation Comments Creatinine Lvl (test code = Creatinine 0.9 0.5-1.4 Lvl) [facility] HospitalEjaslyvOXKFOVNFWUTH9653-76-22 10:00:00 Test Item Value Reference Range Interpretation Comments Glucose Lvl (test code = Glucose Lvl) 127 70-99 [facility] HospitalYnojkhyEYLBEKWYRMLZ7707-69-62 10:00:00 Test Item Value Reference Range Interpretation Comments BUN (test code = BUN) 9 7-22 [facility]QulkiadAPUTHIZHNJ3756-16-81 10:00:00 Test Item Value Reference Range Interpretation Comments Basophils # (test code 0.1 See_Comment [Aut omated message] The = Basophils #) system which generated this result tra nsmitted reference range : <=0.2. The reference r jose alfredo was not used to int erpret this result as normal/abnormal . [facility] CypressYvoefgzYUHRKGNFIX4954-42-90 10:00:00 Test Item Value Reference Range Interpretation Comments Eosinophils # (test code 0.1 See_Comment [A utomated message] The = Eosinophils #) system whic h generated this result tra nsmitted reference range : <=0.5. The reference r jose alfredo was not used to int erpret this result as normal/abnormal . [facility] CypressNbvepdfEOIKCGAIWR3795-36-53 10:00:00 Test Item Value Reference Range Interpretation Comments Monocytes # (test code 0.9 See_Comment [Aut omated message] The = Monocytes #) system which generated this result tra nsmitted reference range : <=0.8. The reference r jose alfredo was not used to int erpret this result as normal/abnormal . [facility] CypressRqqykohGIWEUIFDRB6544-68-12 10:00:00 Test Item Value Reference Range Interpretation Comments Lymphocytes # (test code = Lymphocytes 2.0 1.0-5.5 #) [facility] CypressEwjzusvXZRTGQHEOQ2881-60-02 10:00:00 Test Item Value Reference Range Interpretation Comments Segs (test code = Segs) 59.5 45.0-75.0 [facility] CypressZxbenwgVAJMZGNDOD6959-09-10 10:00:00 Test Item Value Reference Range Interpretation Comments Lymphocytes (test code = Lymphocytes) 25.6 20.0-40.0 [facility] CypressXaouexbLKBQOFESVV4835-87-69 10:00:00 Test Item Value Reference Range Interpretation Comments Basophils (test code = 1.6 See_Comment [Aut omated message] The Basophils) system which ge nerated this result tra nsmitted reference range : <=1.0. The reference r jose alfredo was not used to int erpret this result as normal/abnormal . [facility] CypressOkqwbdrYCFVSGGEUC4968-36-11 10:00:00 Test Item Value Reference Range Interpretation Comments Eosinophils (test code = 1.2 See_Comment [A utomated message] The Eosinophils) system which ge nerated this result tra nsmitted reference range : <=4.0. The reference r jose alfredo was not used to int erpret this result as normal/abnormal . [facility] CypressQahspiaAMPZSFKGDN7391-53-83 10:00:00 Test Item Value Reference Range Interpretation Comments Segs-Bands # (test code = Segs-Bands #) 4.6 1.5-8.1 [facility]ieFxqbhqxIEQNFZPCSP4795-83-28 10:00:00 Test Item Value Reference Range Interpretation Comments Monocytes (test code = Monocytes) 12.1 2.0-12.0 [facility]QoydyjgBQPEKSRGLF9519-33-06 10:00:00 Test Item Value Reference Range Interpretation Comments MCH (test code = MCH) 30.5 pg 27.0-31.0 [facility] HospitalOqgfgwtPETIUXMWBP0967-17-95 10:00:00 Test Item Value Reference Range Interpretation Comments MCHC (test code = MCHC) 34.0 32.0-36.0 [facility]ieLqiucjuMFQTCSERDJ7392-19-87 10:00:00 Test Item Value Reference Range Interpretation Comments RDW (test code = RDW) 13.3 11.5-14.5 [facility] CypressCrfaxonIZSCTKNJAR7433-10-63 10:00:00 Test Item Value Reference Range Interpretation Comments Hct (test code = Hct) 31.0 42.0-54.0 [facility] CypressNgvqxbnUJIMURUHLK7516-72-87 10:00:00 Test Item Value Reference Range Interpretation Comments MCV (test code = MCV) 89.6 80.0-94.0 [facility] HospitalVgacoxjXKUCJSMPVI6736-38-84 10:00:00 Test Item Value Reference Range Interpretation Comments MPV (test code = MPV) 9.4 7.4-10.4 [facility]ieVkopboaRNTBOBNMUX9318-51-80 10:00:00 Test Item Value Reference Range Interpretation Comments Platelet (test code = Platelet) 188 133-450 [facility] CypressZvmjyodRXWGMWHZYC4946-61-59 10:00:00 Test Item Value Reference Range Interpretation Comments Hgb (test code = Hgb) 10.5 14.0-18.0 [facility]ieNdsidmxZNBTQRRORL4772-20-62 10:00:00 Test Item Value Reference Range Interpretation Comments WBC (test code = WBC) 7.7 3.7-10.4 [facility]ieBvkndzeDSAQOSKBCY9131-02-69 10:00:00 Test Item Value Reference Range Interpretation Comments RBC (test code = RBC) 3.46 4.70-6.10 [facility]2015-06-20 14:44:00 Test Item Value Reference Range Interpretation Comments Lactic Acid Lvl (test code = Lactic 1.4 0.5-2.2 Acid Lvl) [facility] HospitalOmjozakOKNDWFEHQKBP2786-80-27 14:44:00 Test Item Value Reference Range Interpretation Comments Sodium Lvl (test code = Sodium Lvl) 133 135-145 [facility]2015-06-20 14:44:00 Test Item Value Reference Range Interpretation Comments Lactic Acid Lvl (test code = Lactic 1.4 0.5-2.2 Acid Lvl) [facility] HospitalGyrxbfoABWRLFOBKUTG1078-19-08 14:44:00 Test Item Value Reference Range Interpretation Comments Sodium Lvl (test code = Sodium Lvl) 133 135-145 [facility]2015-06-20 14:44:00 Test Item Value Reference Range Interpretation Comments Lactic Acid Lvl (test code = Lactic 1.4 0.5-2.2 Acid Lvl) [facility] HospitalXzxgatpJPLWDOIGMYGR5574-34-83 14:44:00 Test Item Value Reference Range Interpretation Comments Sodium Lvl (test code = Sodium Lvl) 133 135-145 [facility]2015-06-20 09:05:00 Test Item Value Reference Range Interpretation Comments B/C Ratio (test code = B/C Ratio) 11 6-25 [facility]2015-06-20 09:05:00 Test Item Value Reference Range Interpretation Comments A/G Ratio (test code = A/G Ratio) 1.0 0.7-1.6 [facility]2015-06-20 09:05:00 Test Item Value Reference Range Interpretation Comments Globulin (test code = Globulin) 3.3 2.0-4.0 [facility]2015-06-20 09:05:00 Test Item Value Reference Range Interpretation Comments AGAP (test code = AGAP) 9.5 10.0-20.0 [facility]2015-06-20 09:05:00 Test Item Value Reference Range Interpretation Comments eGFR (test code = eGFR) 76 [facility]2015-06-20 09:05:00 Test Item Value Reference Range Interpretation Comments Sodium Lvl (test code = Sodium Lvl) 129 135-145 [facility]2015-06-20 09:05:00 Test Item Value Reference Range Interpretation Comments Bili Total (test code = Bili Total) 0.7 0.2-1.3 [facility]2015-06-20 09:05:00 Test Item Value Reference Range Interpretation Comments AST (test code = AST) 31 See_Comment [Auto mated message] The system which ge nerated this result transmit stuart reference range : <=37. The reference range was not used to interpr et this result as cherry l/abnormal. [facility]2015-06-20 09:05:00 Test Item Value Reference Range Interpretation Comments ALT (test code = ALT) 25 See_Comment [Auto mated message] The system which ge nerated this result transmit stuart reference range : <=65. The reference range was not used to interpr et this result as cherry l/abnormal. [facility]In[facility] AHENM1214-61-96 09:05:00 Test Item Value Reference Range Interpretation Comments Alk Phos (test code = Alk Phos) 32 39-136 [facility]2015-06-20 09:05:00 Test Item Value Reference Range Interpretation Comments Total Protein (test code = Total 6.5 6.4-8.4 Protein) [facility]2015-06-20 09:05:00 Test Item Value Reference Range Interpretation Comments Potassium Lvl (test code = Potassium 3.5 3.5-5.1 Lvl) [facility] StephenvilleRawbotsNORTHERN REGIONAL HOSPITALVDXFD0305-92-85 09:05:00 Test Item Value Reference Range Interpretation Comments Albumin Lvl (test code = Albumin Lvl) 3.2 3.5-5.0 [facility]villeIn[facility]i XFTUI1382-81-38 09:05:00 Test Item Value Reference Range Interpretation Comments CO2 (test code = CO2) 28 24-32 [facility]2015-06-20 09:05:00 Test Item Value Reference Range Interpretation Comments Chloride Lvl (test code = Chloride Lvl) 95 95-109 [facility]villeIn[facility]i TQKWL3271-02-80 09:05:00 Test Item Value Reference Range Interpretation Comments Calcium Lvl (test code = Calcium Lvl) 8.2 8.5-10.5 [facility]villeIn[facility] VXIXM9668-00-54 09:05:00 Test Item Value Reference Range Interpretation Comments Glucose Lvl (test code = Glucose Lvl) 147 70-99 [facility]villeIn[facility]i JRJDY2713-00-11 09:05:00 Test Item Value Reference Range Interpretation Comments Creatinine Lvl (test code = Creatinine 1.0 0.5-1.4 Lvl) [facility] OGDSP1061-66-98 09:05:00 Test Item Value Reference Range Interpretation Comments BUN (test code = BUN) 11 - [facility] HospitalDuqrmjgUAJFDOBYCHCP1645-83-70 09:05:00 Test Item Value Reference Range Interpretation Comments AGAP (test code = AGAP) 10.5 10.0-20.0 [facility] HospitalDbikpkwWRAZWQFIOPNF7920-27-24 09:05:00 Test Item Value Reference Range Interpretation Comments Calcium Lvl (test code = Calcium Lvl) 8.4 8.5-10.5 [facility] HospitalZpqtxvqYARDAPLSZPCQ5473-63-07 09:05:00 Test Item Value Reference Range Interpretation Comments CO2 (test code = CO2) 27 24-32 [facility] HospitalXwsacuqCNOFEPAOHQTJ1392-50-45 09:05:00 Test Item Value Reference Range Interpretation Comments Chloride Lvl (test code = Chloride Lvl) 96 95-109 [facility] HospitalBzjzypiGDXCJHYXMSRO8546-40-76 09:05:00 Test Item Value Reference Range Interpretation Comments eGFR (test code = eGFR) 76 [facility] HospitalZlerejhIGZKNYJETSXW8498-12-51 09:05:00 Test Item Value Reference Range Interpretation Comments Potassium Lvl (test code = Potassium 3.5 3.5-5.1 Lvl) [facility] HospitalKwcuddsJFALHYVFQPTJ8009-58-06 09:05:00 Test Item Value Reference Range Interpretation Comments Sodium Lvl (test code = Sodium Lvl) 130 135-145 [facility] HospitalPpffyhgJCXWIDKRVGVW3716-02-88 09:05:00 Test Item Value Reference Range Interpretation Comments Creatinine Lvl (test code = Creatinine 1.0 0.5-1.4 Lvl) [facility] HospitalNcvjnfeRCRCPQPAKDGX1925-04-16 09:05:00 Test Item Value Reference Range Interpretation Comments BUN (test code = BUN) 11 - [facility] HospitalHguyugsJZATIARQSNMZ4956-25-75 09:05:00 Test Item Value Reference Range Interpretation Comments Glucose Lvl (test code = Glucose Lvl) 145 70-99 [facility] CypressTsestssPTQHSGWSBT6615-18-07 09:05:00 Test Item Value Reference Range Interpretation Comments Lymphocytes (test code = Lymphocytes) 12.7 20.0-40.0 [facility] CypressZkfbfgkEAXBRVBDTG4124-74-38 09:05:00 Test Item Value Reference Range Interpretation Comments Segs (test code = Segs) 74.1 45.0-75.0 [facility] CypressJwvektzFFIFIKPHFR1898-49-78 09:05:00 Test Item Value Reference Range Interpretation Comments Monocytes (test code = Monocytes) 12.6 2.0-12.0 [facility] CypressSnfrsfrMKTSZJZYBW0819-32-44 09:05:00 Test Item Value Reference Range Interpretation Comments Monocytes # (test code 1.6 See_Comment [Aut omated message] The = Monocytes #) system which generated this result tra nsmitted reference range : <=0.8. The reference r jose alfredo was not used to int erpret this result as normal/abnormal . [facility] CypressTmtxyagULYXEYVQSP0541-72-19 09:05:00 Test Item Value Reference Range Interpretation Comments Lymphocytes # (test code = Lymphocytes 1.6 1.0-5.5 #) [facility] CypressKsiogmsUMGAFAWVXI8186-60-64 09:05:00 Test Item Value Reference Range Interpretation Comments Basophils (test code = 0.2 See_Comment [Aut omated message] The Basophils) system which ge nerated this result tra nsmitted reference range : <=1.0. The reference r jose alfredo was not used to int erpret this result as normal/abnormal . [facility] CypressJgdgqxtKDNPGKEDDN0308-81-40 09:05:00 Test Item Value Reference Range Interpretation Comments Eosinophils (test code = 0.4 See_Comment [A utomated message] The Eosinophils) system which ge nerated this result tra nsmitted reference range : <=4.0. The reference r jose alfredo was not used to int erpret this result as normal/abnormal . [facility]AiiqmvaTIQHVNVFMA6109-80-87 09:05:00 Test Item Value Reference Range Interpretation Comments Segs-Bands # (test code = Segs-Bands #) 9.6 1.5-8.1 [facility] CypressAdzerdwVBPDITMFLV4464-63-73 09:05:00 Test Item Value Reference Range Interpretation Comments Eosinophils # (test code 0.1 See_Comment [A utomated message] The = Eosinophils #) system whic h generated this result tra nsmitted reference range : <=0.5. The reference r jose alfredo was not used to int erpret this result as normal/abnormal . [facility] CypressQjhdpzyJLHDDOCKNG4193-36-95 09:05:00 Test Item Value Reference Range Interpretation Comments RBC (test code = RBC) 3.97 4.70-6.10 [facility] CypressBnbiqcgEBXLLQOYVM6409-88-59 09:05:00 Test Item Value Reference Range Interpretation Comments WBC (test code = WBC) 13.0 3.7-10.4 [facility] CypressHgazwoqMRJOCFZZQR0856-16-96 09:05:00 Test Item Value Reference Range Interpretation Comments MPV (test code = MPV) 9.7 7.4-10.4 [facility] CypressOpcaprmRFLSFOPFDU6590-36-31 09:05:00 Test Item Value Reference Range Interpretation Comments RDW (test code = RDW) 13.1 11.5-14.5 [facility] CypressWtffkgxGVDIEEDZLZ4967-19-38 09:05:00 Test Item Value Reference Range Interpretation Comments Platelet (test code = Platelet) 202 133-450 [facility] CypressCgjmehtXDZLNFDZGQ6049-60-49 09:05:00 Test Item Value Reference Range Interpretation Comments Hct (test code = Hct) 34.8 42.0-54.0 [facility] CypressXspxyvgOCMULZDRBP2764-80-05 09:05:00 Test Item Value Reference Range Interpretation Comments MCV (test code = MCV) 87.8 80.0-94.0 [facility] CypressFuoiajnPYDBJKLQSB9958-79-56 09:05:00 Test Item Value Reference Range Interpretation Comments Hgb (test code = Hgb) 11.9 14.0-18.0 [facility] CypressBsnozfjWSHMMAHHVC5795-79-75 09:05:00 Test Item Value Reference Range Interpretation Comments MCH (test code = MCH) 30.1 pg 27.0-31.0 [facility] CypressFmnybbyZFIRHYKPUY4313-01-22 09:05:00 Test Item Value Reference Range Interpretation Comments MCHC (test code = MCHC) 34.3 32.0-36.0 [facility]2015-06-20 09:05:00 Test Item Value Reference Range Interpretation Comments B/C Ratio (test code = B/C Ratio) 11 6-25 [facility] [id number] 09:05:00 Test Item Value Reference Range Interpretation Comments A/G Ratio (test code = A/G Ratio) 1.0 0.7-1.6 [facility] OEUUJ5327-07-51 09:05:00 Test Item Value Reference Range Interpretation Comments Globulin (test code = Globulin) 3.3 2.0-4.0 [facility]2015-06-20 09:05:00 Test Item Value Reference Range Interpretation Comments AGAP (test code = AGAP) 9.5 10.0-20.0 [facility]2015-06-20 09:05:00 Test Item Value Reference Range Interpretation Comments eGFR (test code = eGFR) 76 [facility]2015-06-20 09:05:00 Test Item Value Reference Range Interpretation Comments Sodium Lvl (test code = Sodium Lvl) 129 135-145 [facility]2015-06-20 09:05:00 Test Item Value Reference Range Interpretation Comments Bili Total (test code = Bili Total) 0.7 0.2-1.3 [facility]2015-06-20 09:05:00 Test Item Value Reference Range Interpretation Comments AST (test code = AST) 31 See_Comment [Auto mated message] The system which ge nerated this result transmit stuart reference range : <=37. The reference range was not used to interpr et this result as cherry l/abnormal. [facility]2015-06-20 09:05:00 Test Item Value Reference Range Interpretation Comments ALT (test code = ALT) 25 See_Comment [Auto mated message] The system which ge nerated this result transmit stuart reference range : <=65. The reference range was not used to interpr et this result as cherry l/abnormal. [facility]2015-06-20 09:05:00 Test Item Value Reference Range Interpretation Comments Alk Phos (test code = Alk Phos) 32 39-136 [facility]2015-06-20 09:05:00 Test Item Value Reference Range Interpretation Comments Total Protein (test code = Total 6.5 6.4-8.4 Protein) [facility]2015-06-20 09:05:00 Test Item Value Reference Range Interpretation Comments Potassium Lvl (test code = Potassium 3.5 3.5-5.1 Lvl) [facility]2015-06-20 09:05:00 Test Item Value Reference Range Interpretation Comments Albumin Lvl (test code = Albumin Lvl) 3.2 3.5-5.0 [facility]2015-06-20 09:05:00 Test Item Value Reference Range Interpretation Comments CO2 (test code = CO2) 28 24-32 [facility]2015-06-20 09:05:00 Test Item Value Reference Range Interpretation Comments Chloride Lvl (test code = Chloride Lvl) 95 95-109 [facility]2015-06-20 09:05:00 Test Item Value Reference Range Interpretation Comments Calcium Lvl (test code = Calcium Lvl) 8.2 8.5-10.5 [facility]2015-06-20 09:05:00 Test Item Value Reference Range Interpretation Comments Glucose Lvl (test code = Glucose Lvl) 147 70-99 [facility]2015-06-20 09:05:00 Test Item Value Reference Range Interpretation Comments Creatinine Lvl (test code = Creatinine 1.0 0.5-1.4 Lvl) [facility]2015-06-20 09:05:00 Test Item Value Reference Range Interpretation Comments BUN (test code = BUN) 11 7-22 [facility] HospitalZkkcwnnPUENWZZFCSPH9974-38-44 09:05:00 Test Item Value Reference Range Interpretation Comments AGAP (test code = AGAP) 10.5 10.0-20.0 [facility] HospitalYqjlcivWOVPBPAMXLPQ7381-04-27 09:05:00 Test Item Value Reference Range Interpretation Comments Calcium Lvl (test code = Calcium Lvl) 8.4 8.5-10.5 [facility] HospitalZuhxqmxZEWYXQYPERIZ6017-92-23 09:05:00 Test Item Value Reference Range Interpretation Comments CO2 (test code = CO2) 27 24-32 [facility] HospitalLaxnlgdVXEXJONSGYSV3265-42-41 09:05:00 Test Item Value Reference Range Interpretation Comments Chloride Lvl (test code = Chloride Lvl) 96 95-109 [facility] HospitalWxcdisfOJYLJVBWCOBN5293-77-96 09:05:00 Test Item Value Reference Range Interpretation Comments eGFR (test code = eGFR) 76 [facility] HospitalMsyirduLZCZKSDZUWJA5326-72-23 09:05:00 Test Item Value Reference Range Interpretation Comments Potassium Lvl (test code = Potassium 3.5 3.5-5.1 Lvl) [facility] HospitalWwfgaegHEBXHVTBMNGC8962-35-50 09:05:00 Test Item Value Reference Range Interpretation Comments Sodium Lvl (test code = Sodium Lvl) 130 135-145 [facility] HospitalGurccfwIDIWYCQYABMC8524-96-89 09:05:00 Test Item Value Reference Range Interpretation Comments Creatinine Lvl (test code = Creatinine 1.0 0.5-1.4 Lvl) [facility] HospitalIgequzjPBBJXAHFAFZQ0214-49-47 09:05:00 Test Item Value Reference Range Interpretation Comments BUN (test code = BUN) 11 7-22 [facility] HospitalNfzudhgXAVILMAHUDKQ7209-09-99 09:05:00 Test Item Value Reference Range Interpretation Comments Glucose Lvl (test code = Glucose Lvl) 145 70-99 [facility]ressVqwyplnUXMLTYRHJR5154-09-69 09:05:00 Test Item Value Reference Range Interpretation Comments Lymphocytes (test code = Lymphocytes) 12.7 20.0-40.0 [facility] CypressKuwalmnCVWCOBKQRI7166-67-66 09:05:00 Test Item Value Reference Range Interpretation Comments Segs (test code = Segs) 74.1 45.0-75.0 [facility] CypressAkwcfskMJVTFPIRRU8010-30-74 09:05:00 Test Item Value Reference Range Interpretation Comments Monocytes (test code = Monocytes) 12.6 2.0-12.0 [facility] CypressRtvjsdjXNAXUAQMMJ4575-05-52 09:05:00 Test Item Value Reference Range Interpretation Comments Monocytes # (test code 1.6 See_Comment [Aut omated message] The = Monocytes #) system which generated this result tra nsmitted reference range : <=0.8. The reference r jose alfredo was not used to int erpret this result as normal/abnormal . [facility] CypressAwwxeycKZSPUMKRSV1686-95-42 09:05:00 Test Item Value Reference Range Interpretation Comments Lymphocytes # (test code = Lymphocytes 1.6 1.0-5.5 #) [facility] CypressMcrnztwDTKZGEPNRE0478-88-90 09:05:00 Test Item Value Reference Range Interpretation Comments Basophils (test code = 0.2 See_Comment [Aut omated message] The Basophils) system which ge nerated this result tra nsmitted reference range : <=1.0. The reference r jose alfredo was not used to int erpret this result as normal/abnormal . [facility] CypressSlggmcwYEPXSFNTIN4285-93-97 09:05:00 Test Item Value Reference Range Interpretation Comments Eosinophils (test code = 0.4 See_Comment [A utomated message] The Eosinophils) system which ge nerated this result tra nsmitted reference range : <=4.0. The reference r jose alfredo was not used to int erpret this result as normal/abnormal . [facility] CypressPmhcuwyDGMHCLBUQT3757-35-40 09:05:00 Test Item Value Reference Range Interpretation Comments Segs-Bands # (test code = Segs-Bands #) 9.6 1.5-8.1 [facility] CypressToihzolNLCZAZJOAB7830-26-19 09:05:00 Test Item Value Reference Range Interpretation Comments Eosinophils # (test code 0.1 See_Comment [A utomated message] The = Eosinophils #) system whic h generated this result tra nsmitted reference range : <=0.5. The reference r jose alfredo was not used to int erpret this result as normal/abnormal . [facility] CypressOdgdhasZHDETLYDJX9976-18-16 09:05:00 Test Item Value Reference Range Interpretation Comments RBC (test code = RBC) 3.97 4.70-6.10 [facility] CypressEskknkoYCKXAWYDJA2443-67-20 09:05:00 Test Item Value Reference Range Interpretation Comments WBC (test code = WBC) 13.0 3.7-10.4 [facility] CypressAbjhrbzKYHDBYYYGW3167-70-33 09:05:00 Test Item Value Reference Range Interpretation Comments MPV (test code = MPV) 9.7 7.4-10.4 [facility] CypressOxsafxmUYRVHTKZWR6096-46-42 09:05:00 Test Item Value Reference Range Interpretation Comments RDW (test code = RDW) 13.1 11.5-14.5 [facility] CypressZymmfxbRESQSTKWHU5615-89-57 09:05:00 Test Item Value Reference Range Interpretation Comments Platelet (test code = Platelet) 202 133-450 [facility] CypressIsxafplBWXEAULGKP1462-36-90 09:05:00 Test Item Value Reference Range Interpretation Comments Hct (test code = Hct) 34.8 42.0-54.0 [facility] CypressFotgayuBRZHOLMNYR2387-44-49 09:05:00 Test Item Value Reference Range Interpretation Comments MCV (test code = MCV) 87.8 80.0-94.0 [facility] CypressGcqzhzjYKPWZRWHRQ7374-77-79 09:05:00 Test Item Value Reference Range Interpretation Comments Hgb (test code = Hgb) 11.9 14.0-18.0 [facility] CypressDtawuocVKUCYNGBKQ3917-49-21 09:05:00 Test Item Value Reference Range Interpretation Comments MCH (test code = MCH) 30.1 pg 27.0-31.0 [facility]EqiyxnhIBFWVQLHKT8607-16-64 09:05:00 Test Item Value Reference Range Interpretation Comments MCHC (test code = MCHC) 34.3 32.0-36.0 [facility]2015-06-20 09:05:00 Test Item Value Reference Range Interpretation Comments B/C Ratio (test code = B/C Ratio) 11 6-25 [facility]2015-06-20 09:05:00 Test Item Value Reference Range Interpretation Comments A/G Ratio (test code = A/G Ratio) 1.0 0.7-1.6 [facility]2015-06-20 09:05:00 Test Item Value Reference Range Interpretation Comments Globulin (test code = Globulin) 3.3 2.0-4.0 [facility]2015-06-20 09:05:00 Test Item Value Reference Range Interpretation Comments AGAP (test code = AGAP) 9.5 10.0-20.0 [facility]2015-06-20 09:05:00 Test Item Value Reference Range Interpretation Comments eGFR (test code = eGFR) 76 [facility]2015-06-20 09:05:00 Test Item Value Reference Range Interpretation Comments Sodium Lvl (test code = Sodium Lvl) 129 135-145 [facility]2015-06-20 09:05:00 Test Item Value Reference Range Interpretation Comments Bili Total (test code = Bili Total) 0.7 0.2-1.3 [facility]2015-06-20 09:05:00 Test Item Value Reference Range Interpretation Comments AST (test code = AST) 31 See_Comment [Auto mated message] The system which ge nerated this result transmit stuart reference range : <=37. The reference range was not used to interpr et this result as cherry l/abnormal. [facility]2015-06-20 09:05:00 Test Item Value Reference Range Interpretation Comments ALT (test code = ALT) 25 See_Comment [Auto mated message] The system which ge nerated this result transmit stuart reference range : <=65. The reference range was not used to interpr et this result as cherry l/abnormal. [facility]2015-06-20 09:05:00 Test Item Value Reference Range Interpretation Comments Alk Phos (test code = Alk Phos) 32 39-136 [facility]2015-06-20 09:05:00 Test Item Value Reference Range Interpretation Comments Total Protein (test code = Total 6.5 6.4-8.4 Protein) [facility]2015-06-20 09:05:00 Test Item Value Reference Range Interpretation Comments Potassium Lvl (test code = Potassium 3.5 3.5-5.1 Lvl) [facility]2015-06-20 09:05:00 Test Item Value Reference Range Interpretation Comments Albumin Lvl (test code = Albumin Lvl) 3.2 3.5-5.0 [facility]2015-06-20 09:05:00 Test Item Value Reference Range Interpretation Comments CO2 (test code = CO2) 28 24-32 [facility]2015-06-20 09:05:00 Test Item Value Reference Range Interpretation Comments Chloride Lvl (test code = Chloride Lvl) 95 95-109 [facility]2015-06-20 09:05:00 Test Item Value Reference Range Interpretation Comments Calcium Lvl (test code = Calcium Lvl) 8.2 8.5-10.5 [facility]2015-06-20 09:05:00 Test Item Value Reference Range Interpretation Comments Glucose Lvl (test code = Glucose Lvl) 147 70-99 [facility]2015-06-20 09:05:00 Test Item Value Reference Range Interpretation Comments Creatinine Lvl (test code = Creatinine 1.0 0.5-1.4 Lvl) [facility]2015-06-20 09:05:00 Test Item Value Reference Range Interpretation Comments BUN (test code = BUN) 11 7-22 [facility] HospitalAuaeoalIFPDGLNFFCJX6407-46-48 09:05:00 Test Item Value Reference Range Interpretation Comments AGAP (test code = AGAP) 10.5 10.0-20.0 [facility] HospitalGuhlbzxNEIAJVUNYWCW8832-71-54 09:05:00 Test Item Value Reference Range Interpretation Comments Calcium Lvl (test code = Calcium Lvl) 8.4 8.5-10.5 [facility] HospitalDbxvtxbWNJXCVQDLULK0203-52-22 09:05:00 Test Item Value Reference Range Interpretation Comments CO2 (test code = CO2) 27 24-32 [facility] HospitalEqohrrcCXTKBOKNMYOO7594-92-04 09:05:00 Test Item Value Reference Range Interpretation Comments Chloride Lvl (test code = Chloride Lvl) 96 95-109 [facility] HospitalOhoyscsKUPYTBADAAMQ0930-46-24 09:05:00 Test Item Value Reference Range Interpretation Comments eGFR (test code = eGFR) 76 [facility] HospitalLhmwalrTOWFKTOAOAJC5150-29-99 09:05:00 Test Item Value Reference Range Interpretation Comments Potassium Lvl (test code = Potassium 3.5 3.5-5.1 Lvl) [facility] HospitalLkejkbyXQAZAPWARJFM0183-92-63 09:05:00 Test Item Value Reference Range Interpretation Comments Sodium Lvl (test code = Sodium Lvl) 130 135-145 [facility] HospitalYhguutzNGDRCSMMAFTD6369-69-38 09:05:00 Test Item Value Reference Range Interpretation Comments Creatinine Lvl (test code = Creatinine 1.0 0.5-1.4 Lvl) [facility] HospitalPehhjqkTZNWWQSCFSCJ4428-97-99 09:05:00 Test Item Value Reference Range Interpretation Comments BUN (test code = BUN) 11 7-22 [facility] HospitalPbdltcvRRPWLWDFEWOH8111-66-32 09:05:00 Test Item Value Reference Range Interpretation Comments Glucose Lvl (test code = Glucose Lvl) 145 70-99 [facility]ressNayddarYXEAMSGRSB6104-14-76 09:05:00 Test Item Value Reference Range Interpretation Comments Lymphocytes (test code = Lymphocytes) 12.7 20.0-40.0 [facility] CypressYowfmwwXXHRDOETRG6037-38-41 09:05:00 Test Item Value Reference Range Interpretation Comments Segs (test code = Segs) 74.1 45.0-75.0 [facility] CypressIslemsxVUOOHQEPUG2173-50-90 09:05:00 Test Item Value Reference Range Interpretation Comments Monocytes (test code = Monocytes) 12.6 2.0-12.0 [facility] CypressVzdugjhPHHXLIUFFV0922-61-95 09:05:00 Test Item Value Reference Range Interpretation Comments Monocytes # (test code 1.6 See_Comment [Aut omated message] The = Monocytes #) system which generated this result tra nsmitted reference range : <=0.8. The reference r jose alfredo was not used to int erpret this result as normal/abnormal . [facility] CypressTioaasqYOWSRRDVSS9996-58-23 09:05:00 Test Item Value Reference Range Interpretation Comments Lymphocytes # (test code = Lymphocytes 1.6 1.0-5.5 #) [facility] CypressGsrxxmxPKEOQWCGLO7875-87-74 09:05:00 Test Item Value Reference Range Interpretation Comments Basophils (test code = 0.2 See_Comment [Aut omated message] The Basophils) system which ge nerated this result tra nsmitted reference range : <=1.0. The reference r jose alfredo was not used to int erpret this result as normal/abnormal . [facility] CypressThycpofWGSOZUITOG9400-04-89 09:05:00 Test Item Value Reference Range Interpretation Comments Eosinophils (test code = 0.4 See_Comment [A utomated message] The Eosinophils) system which ge nerated this result tra nsmitted reference range : <=4.0. The reference r jose alfredo was not used to int erpret this result as normal/abnormal . [facility] CypressUcnkmghVKEFAWRVAF4825-71-49 09:05:00 Test Item Value Reference Range Interpretation Comments Segs-Bands # (test code = Segs-Bands #) 9.6 1.5-8.1 [facility]ressPgdjjeeXDQCQECEQB1891-44-66 09:05:00 Test Item Value Reference Range Interpretation Comments Eosinophils # (test code 0.1 See_Comment [A utomated message] The = Eosinophils #) system whic h generated this result tra nsmitted reference range : <=0.5. The reference r jose alfredo was not used to int erpret this result as normal/abnormal . [facility] CypressQempofdJJMPCZPAHQ7441-83-43 09:05:00 Test Item Value Reference Range Interpretation Comments RBC (test code = RBC) 3.97 4.70-6.10 [facility] CypressCktjibjPIFXROQLZG7333-73-67 09:05:00 Test Item Value Reference Range Interpretation Comments WBC (test code = WBC) 13.0 3.7-10.4 [facility] CypressRvzffreGSJCECSLRN9055-86-51 09:05:00 Test Item Value Reference Range Interpretation Comments MPV (test code = MPV) 9.7 7.4-10.4 [facility] CypressArqpfneHWTTVKIQUY0506-36-33 09:05:00 Test Item Value Reference Range Interpretation Comments RDW (test code = RDW) 13.1 11.5-14.5 [facility] CypressZtkqswoXNYXDEUYIB6175-01-25 09:05:00 Test Item Value Reference Range Interpretation Comments Platelet (test code = Platelet) 202 133-450 [facility]ieWntlhlqUSUWGXZDQB1774-28-03 09:05:00 Test Item Value Reference Range Interpretation Comments Hct (test code = Hct) 34.8 42.0-54.0 [facility] CypressUyyvfukZYEHFKBQJR5698-53-70 09:05:00 Test Item Value Reference Range Interpretation Comments MCV (test code = MCV) 87.8 80.0-94.0 [facility] CypressRdlnbbwQUBIZHBMJB0213-15-32 09:05:00 Test Item Value Reference Range Interpretation Comments Hgb (test code = Hgb) 11.9 14.0-18.0 [facility]lnhlqoVIRFGIMVYP0770-21-25 09:05:00 Test Item Value Reference Range Interpretation Comments MCH (test code = MCH) 30.1 pg 27.0-31.0 [facility] CypressCecrhspNRFCPDXYVF6895-41-86 09:05:00 Test Item Value Reference Range Interpretation Comments MCHC (test code = MCHC) 34.3 32.0-36.0 [facility]ieCHEM QQWCW2010-43-06 05:11:00 Test Item Value Reference Range Interpretation Comments Lactic Acid Lvl (test code = Lactic 1.1 0.5-2.2 Acid Lvl) [facility]ieRowauqzUEWXIA5346-45-25 05:11:00 Test Item Value Reference Range Interpretation Comments VLDL (test code = VLDL) 14 [facility]achieLsoechjZKMPXY7408-25-06 05:11:00 Test Item Value Reference Range Interpretation Comments LDL (Calculated) (test code = LDL 25 (Calculated)) [facility]iePzlsjxmDDKRKV0493-20-57 05:11:00 Test Item Value Reference Range Interpretation Comments Chol (test code = Chol) 91 [facility]achieZtmnybnBDCKWC2198-29-63 05:11:00 Test Item Value Reference Range Interpretation Comments CHD Risk (test code = CHD Risk) 1.75 4.00-7.30 [facility]ieCoppysrOYGPIS3016-18-87 05:11:00 Test Item Value Reference Range Interpretation Comments HDL (test code = HDL) 52 [facility]ieMlvaefoFKMGYH5190-74-42 05:11:00 Test Item Value Reference Range Interpretation Comments Trig (test code = Trig) 71 [facility]ieTHYROID ALXQH9978-14-37 05:11:00 Test Item Value Reference Range Interpretation Comments TSH (test code = TSH) 1.790 0.360-3.740 [facility]annCHEM IIZOB0941-01-18 05:11:00 Test Item Value Reference Range Interpretation Comments Lactic Acid Lvl (test code = Lactic 1.1 0.5-2.2 Acid Lvl) [facility]neyWhrxjacDGJZZL1135-06-65 05:11:00 Test Item Value Reference Range Interpretation Comments VLDL (test code = VLDL) 14 [facility]ieLsssophGSEOTY1208-59-45 05:11:00 Test Item Value Reference Range Interpretation Comments LDL (Calculated) (test code = LDL 25 (Calculated)) [facility] McKinneyLtduioyVBWXKN2734-47-19 05:11:00 Test Item Value Reference Range Interpretation Comments Chol (test code = Chol) 91 [facility] McKinneyOzcdfakSHKUEH4415-10-02 05:11:00 Test Item Value Reference Range Interpretation Comments CHD Risk (test code = CHD Risk) 1.75 4.00-7.30 [facility] McKinneyNfiytdkKVFDCO8429-88-72 05:11:00 Test Item Value Reference Range Interpretation Comments HDL (test code = HDL) 52 [facility] McKinneyWsufxmcORELZX1205-11-90 05:11:00 Test Item Value Reference Range Interpretation Comments Trig (test code = Trig) 71 [facility]ieTHYROID NOTEP9858-88-04 05:11:00 Test Item Value Reference Range Interpretation Comments TSH (test code = TSH) 1.790 0.360-3.740 [facility]achieGenZum Life Sciences GLSFV0573-69-02 05:11:00 Test Item Value Reference Range Interpretation Comments Lactic Acid Lvl (test code = Lactic 1.1 0.5-2.2 Acid Lvl) [id number] 05:11:00 Test Item Value Reference Range Interpretation Comments VLDL (test code = VLDL) 14 [id number] 05:11:00 Test Item Value Reference Range Interpretation Comments LDL (Calculated) (test code = LDL 25 (Calculated)) [id number] 05:11:00 Test Item Value Reference Range Interpretation Comments Chol (test code = Chol) 91 [facility] [id number] 05:11:00 Test Item Value Reference Range Interpretation Comments CHD Risk (test code = CHD Risk) 1.75 4.00-7.30 [facility] [id number] 05:11:00 Test Item Value Reference Range Interpretation Comments HDL (test code = HDL) 52 [facility] [id number] 05:11:00 Test Item Value Reference Range Interpretation Comments Trig (test code = Trig) 71 [facility]THYROID [id number] 05:11:00 Test Item Value Reference Range Interpretation Comments TSH (test code = TSH) 1.790 0.360-3.740 [facility]villeannBACTERIAL - [id number] 00:29:00 Test Item Value Reference Range Interpretation Comments MRSA by PCR (test Negative 16(02/17/15 7:29 code = MRSA by PCR) PM) [facility]villeannBACTERIAL - [id number] 00:29:00 Test Item Value Reference Range Interpretation Comments MRSA by PCR (test Negative 16(02/17/15 7:29 code = MRSA by PCR) PM) [facility]villeannBACTERIAL - [id number] 00:29:00 Test Item Value Reference Range Interpretation Comments MRSA by PCR (test Negative 16(02/17/15 7:29 code = MRSA by PCR) PM) [facility]villeannCHEM [id number] 00:28:00 Test Item Value Reference Range Interpretation Comments Lactic Acid Lvl (test code = Lactic 1.0 0.5-2.2 Acid Lvl) [facility]ieZqxmngvNHHPVIAEMF1443-02-03 00:28:00 Test Item Value Reference Range Interpretation Comments Platelet (test code = Platelet) 193 133-450 [id number] 00:28:00 Test Item Value Reference Range Interpretation Comments PTT (test code = PTT) 25.3 s 22.9-35.8 [facility]villeannCHEM [id number] 00:28:00 Test Item Value Reference Range Interpretation Comments Lactic Acid Lvl (test code = Lactic 1.0 0.5-2.2 Acid Lvl) [id number] 00:28:00 Test Item Value Reference Range Interpretation Comments Platelet (test code = Platelet) 193 133-450 [facility]coePECRMRSQSI8470-19-03 00:28:00 Test Item Value Reference Range Interpretation Comments PTT (test code = PTT) 25.3 s 22.9-35.8 [facility]villeannCHEM [id number] 00:28:00 Test Item Value Reference Range Interpretation Comments Lactic Acid Lvl (test code = Lactic 1.0 0.5-2.2 Acid Lvl) [facility] St[id number] 00:28:00 Test Item Value Reference Range Interpretation Comments Platelet (test code = Platelet) 193 133-450 [id number] 00:28:00 Test Item Value Reference Range Interpretation Comments PTT (test code = PTT) 25.3 s 22.9-35.8 [facility]villeannDRUG [id number] 21:40:00 Test Item Value Reference Range Interpretation Comments UDS Note (test code = See Note 8(02/17/15 4:40 UDS Note) PM) [facility]villeannDRUG [id number] 21:40:00 Test Item Value Reference Range Interpretation Comments U Phencyc Scr (test Negative *NA*(02/17/15 code = U Phencyc Scr) 4:40 PM) [facility]villeannDRUG [id number] 21:40:00 Test Item Value Reference Range Interpretation Comments U Opiate Scr (test Negative *NA*(02/17/15 code = U Opiate Scr) 4:40 PM) [facility]DR[facility] [id number] 21:40:00 Test Item Value Reference Range Interpretation Comments U Cannab Scr (test Negative *NA*(02/17/15 code = U Cannab Scr) 4:40 PM) [facility]villeannDRUG [id number] 21:40:00 Test Item Value Reference Range Interpretation Comments U Cocaine Scr (test Positive *ABN*(02/17/15 code = U Cocaine Scr) 4:40 PM) [facility]annDRUG [id number] 21:40:00 Test Item Value Reference Range Interpretation Comments U Benzodia Scr (test Negative *NA*(02/17/15 code = U Benzodia Scr) 4:40 PM) [facility]annDR[facility] [id number] 21:40:00 Test Item Value Reference Range Interpretation Comments U Marilee Scr (test code Negative *NA*(02/17/15 = U Marilee Scr) 4:40 PM) [facility]annDRUG [id number] 21:40:00 Test Item Value Reference Range Interpretation Comments U Amph Scr (test code Negative *NA*(02/17/15 = U Amph Scr) 4:40 PM) [facility] AND [id number] 21:40:00 Test Item Value Reference Range Interpretation Comments UA Blood (test code = Negative (02/17/15 4:40 UA Blood) PM) [facility] AND [id number] 21:40:00 Test Item Value Reference Range Interpretation Comments UA Glucose (test code = UA >=1000 mg/dL Glucose) [facility] AND [id number] 21:40:00 Test Item Value Reference Range Interpretation Comments UA Bili (test code = Negative *NA*(02/17/15 UA Bili) 4:40 PM) [facility] AND [id number] 21:40:00 Test Item Value Reference Range Interpretation Comments UA Color (test code = Yellow *NA*(02/17/15 UA Color) 4:40 PM) [facility] AND [id number] 21:40:00 Test Item Value Reference Range Interpretation Comments UA Spec Grav (test code = UA Spec 1.010 1 Grav) [facility] AND [id number] 21:40:00 Test Item Value Reference Range Interpretation Comments UA Turbidity (test code = Clear (02/17/15 4:40 UA Turbidity) PM) [facility] AND [id number] 21:40:00 Test Item Value Reference Range Interpretation Comments UA pH (test code = UA pH) 6.0 1 5.0-8.0 [facility] AND [id number] 21:40:00 Test Item Value Reference Range Interpretation Comments UA Leuk Est (test Negative (02/17/15 4:40 code = UA Leuk Est) PM) [facility] AND [id number] 21:40:00 Test Item Value Reference Range Interpretation Comments UA Nitrite (test code Negative (02/17/15 4:40 = UA Nitrite) PM) [facility] AND [id number] 21:40:00 Test Item Value Reference Range Interpretation Comments UA Urobilinogen (test code = UA 0.2 0.1-1.0 Urobilinogen) [facility] AND [id number] 21:40:00 Test Item Value Reference Range Interpretation Comments UA Ketones (test code = UA Negative mg/dL Ketones) [facility] [id number] 21:40:00 Test Item Value Reference Range Interpretation Comments UA Protein (test code = UA Negative mg/dL Protein) [facility] [id number] 21:40:00 Test Item Value Reference Range Interpretation Comments UA RBC (test code = 0-2 /HPF See_Comment [Automa stuart message] The UA RBC) system which ge nerated this result tra nsmitted reference range : <=2. The reference range was not used to interpr et this result as cherry l/abnormal. [facility] [id number] 21:40:00 Test Item Value Reference Range Interpretation Comments UA Bacteria (test code = UA Few /HPF Bacteria) [facility] [id number] 21:40:00 Test Item Value Reference Range Interpretation Comments UA Sq Epi (test code = UA Sq Epi) Few /LPF [facility] AND [id number] 21:40:00 Test Item Value Reference Range Interpretation Comments UA WBC (test code = UA WBC) 0-2 /HPF [facility]annDR[facility] [id number] 21:40:00 Test Item Value Reference Range Interpretation Comments UDS Note (test code = See Note 8(02/17/15 4:40 UDS Note) PM) [facility]annDRUG [id number] 21:40:00 Test Item Value Reference Range Interpretation Comments U Phencyc Scr (test Negative *NA*(02/17/15 code = U Phencyc Scr) 4:40 PM) [facility]annDRUG [id number] 21:40:00 Test Item Value Reference Range Interpretation Comments U Opiate Scr (test Negative *NA*(02/17/15 code = U Opiate Scr) 4:40 PM) [facility] [id number] 21:40:00 Test Item Value Reference Range Interpretation Comments U Cannab Scr (test Negative *NA*(02/17/15 code = U Cannab Scr) 4:40 PM) [facility] [id number] 21:40:00 Test Item Value Reference Range Interpretation Comments U Cocaine Scr (test Positive *ABN*(02/17/15 code = U Cocaine Scr) 4:40 PM) [facility]annDRUG [id number] 21:40:00 Test Item Value Reference Range Interpretation Comments U Benzodia Scr (test Negative *NA*(02/17/15 code = U Benzodia Scr) 4:40 PM) [facility] [id number] 21:40:00 Test Item Value Reference Range Interpretation Comments U Marilee Scr (test code Negative *NA*(02/17/15 = U Marilee Scr) 4:40 PM) [facility] [id number] 21:40:00 Test Item Value Reference Range Interpretation Comments U Amph Scr (test code Negative *NA*(02/17/15 = U Amph Scr) 4:40 PM) [facility] [id number] 21:40:00 Test Item Value Reference Range Interpretation Comments UA Blood (test code = Negative (02/17/15 4:40 UA Blood) PM) [facility] [id number] 21:40:00 Test Item Value Reference Range Interpretation Comments UA Glucose (test code = UA >=1000 mg/dL Glucose) [facility] [id number] 21:40:00 Test Item Value Reference Range Interpretation Comments UA Bili (test code = Negative *NA*(02/17/15 UA Bili) 4:40 PM) [facility] [id number] 21:40:00 Test Item Value Reference Range Interpretation Comments UA Color (test code = Yellow *NA*(02/17/15 UA Color) 4:40 PM) [facility] [id number] 21:40:00 Test Item Value Reference Range Interpretation Comments UA Spec Grav (test code = UA Spec 1.010 1 Grav) [facility] [id number] 21:40:00 Test Item Value Reference Range Interpretation Comments UA Turbidity (test code = Clear (02/17/15 4:40 UA Turbidity) PM) [facility] [id number] 21:40:00 Test Item Value Reference Range Interpretation Comments UA pH (test code = UA pH) 6.0 1 5.0-8.0 [facility] [id number] 21:40:00 Test Item Value Reference Range Interpretation Comments UA Leuk Est (test Negative (02/17/15 4:40 code = UA Leuk Est) PM) [facility] [id number] 21:40:00 Test Item Value Reference Range Interpretation Comments UA Nitrite (test code Negative (02/17/15 4:40 = UA Nitrite) PM) [facility] [id number] 21:40:00 Test Item Value Reference Range Interpretation Comments UA Urobilinogen (test code = UA 0.2 0.1-1.0 Urobilinogen) [facility] [id number] 21:40:00 Test Item Value Reference Range Interpretation Comments UA Ketones (test code = UA Negative mg/dL Ketones) [facility] [id number] 21:40:00 Test Item Value Reference Range Interpretation Comments UA Protein (test code = UA Negative mg/dL Protein) [facility] [id number] 21:40:00 Test Item Value Reference Range Interpretation Comments UA RBC (test code = 0-2 /HPF See_Comment [Automa stuart message] The UA RBC) system which ge nerated this result tra nsmitted reference range : <=2. The reference range was not used to interpr et this result as cherry l/abnormal. [facility] [id number] 21:40:00 Test Item Value Reference Range Interpretation Comments UA Bacteria (test code = UA Few /HPF Bacteria) [facility] [id number] 21:40:00 Test Item Value Reference Range Interpretation Comments UA Sq Epi (test code = UA Sq Epi) Few /LPF [facility] [id number] 21:40:00 Test Item Value Reference Range Interpretation Comments UA WBC (test code = UA WBC) 0-2 /HPF [facility] [id number] 21:40:00 Test Item Value Reference Range Interpretation Comments UDS Note (test code = See Note 8(02/17/15 4:40 UDS Note) PM) [facility] [id number] 21:40:00 Test Item Value Reference Range Interpretation Comments U Phencyc Scr (test Negative *NA*(02/17/15 code = U Phencyc Scr) 4:40 PM) [facility] [id number] 21:40:00 Test Item Value Reference Range Interpretation Comments U Opiate Scr (test Negative *NA*(02/17/15 code = U Opiate Scr) 4:40 PM) [facility] [id number] 21:40:00 Test Item Value Reference Range Interpretation Comments U Cannab Scr (test Negative *NA*(02/17/15 code = U Cannab Scr) 4:40 PM) [facility] [id number] 21:40:00 Test Item Value Reference Range Interpretation Comments U Cocaine Scr (test Positive *ABN*(02/17/15 code = U Cocaine Scr) 4:40 PM) [facility] [id number] 21:40:00 Test Item Value Reference Range Interpretation Comments U Benzodia Scr (test Negative *NA*(02/17/15 code = U Benzodia Scr) 4:40 PM) [facility] [id number] 21:40:00 Test Item Value Reference Range Interpretation Comments U Marilee Scr (test code Negative *NA*(02/17/15 = U Marilee Scr) 4:40 PM) [facility] [id number] 21:40:00 Test Item Value Reference Range Interpretation Comments U Amph Scr (test code Negative *NA*(02/17/15 = U Amph Scr) 4:40 PM) [facility] [id number] 21:40:00 Test Item Value Reference Range Interpretation Comments UA Blood (test code = Negative (02/17/15 4:40 UA Blood) PM) [facility] [id number] 21:40:00 Test Item Value Reference Range Interpretation Comments UA Glucose (test code = UA >=1000 mg/dL Glucose) [facility] [id number] 21:40:00 Test Item Value Reference Range Interpretation Comments UA Bili (test code = Negative *NA*(02/17/15 UA Bili) 4:40 PM) [facility] [id number] 21:40:00 Test Item Value Reference Range Interpretation Comments UA Color (test code = Yellow *NA*(02/17/15 UA Color) 4:40 PM) [facility] [id number] 21:40:00 Test Item Value Reference Range Interpretation Comments UA Spec Grav (test code = UA Spec 1.010 1 Grav) [facility] [id number] 21:40:00 Test Item Value Reference Range Interpretation Comments UA Turbidity (test code = Clear (02/17/15 4:40 UA Turbidity) PM) [facility] AND [id number] 21:40:00 Test Item Value Reference Range Interpretation Comments UA pH (test code = UA pH) 6.0 1 5.0-8.[address] [facility] AND [id number] 21:40:00 Test Item Value Reference Range Interpretation Comments UA Leuk Est (test Negative (02/17/15 4:40 code = UA Leuk Est) PM) [facility] AND [id number] 21:40:00 Test Item Value Reference Range Interpretation Comments UA Nitrite (test code Negative (02/17/15 4:40 = UA Nitrite) PM) [facility] AND [id number] 21:40:00 Test Item Value Reference Range Interpretation Comments UA Urobilinogen (test code = UA 0.2 0.1-1.0 Urobilinogen) [facility] AND [id number] 21:40:00 Test Item Value Reference Range Interpretation Comments UA Ketones (test code = UA Negative mg/dL Ketones) [facility] AND [id number] 21:40:00 Test Item Value Reference Range Interpretation Comments UA Protein (test code = UA Negative mg/dL Protein) [facility] AND [id number] 21:40:00 Test Item Value Reference Range Interpretation Comments UA RBC (test code = 0-2 /HPF See_Comment [Automa stuart message] The UA RBC) system which ge nerated this result tra nsmitted reference range : <=2. The reference range was not used to interpr et this result as cherry l/abnormal. [facility] AND [id number] 21:40:00 Test Item Value Reference Range Interpretation Comments UA Bacteria (test code = UA Few /HPF Bacteria) [facility] AND [id number] 21:40:00 Test Item Value Reference Range Interpretation Comments UA Sq Epi (test code = UA Sq Epi) Few /LPF [facility] AND [id number] 21:40:00 Test Item Value Reference Range Interpretation Comments UA WBC (test code = UA WBC) 0-2 /HPF [facility]CHEM [id number] 21:12:00 Test Item Value Reference Range Interpretation Comments Osmolality (test code = Osmolality) 255 280-300 [facility] [id number] 21:12:00 Test Item Value Reference Range Interpretation Comments Osmolality (test code = Osmolality) 255 280-300 [facility] [id number] 21:12:00 Test Item Value Reference Range Interpretation Comments Osmolality (test code = Osmolality) 255 280-300 [facility]2015-06-19 20:00:00 Test Item Value Reference Range Interpretation Comments U Sodium (test code = U Sodium) 53 [facility]2015-06-19 20:00:00 Test Item Value Reference Range Interpretation Comments U Osmolality (test code = U Osmolality) 344 300-800 [facility]2015-06-19 20:00:00 Test Item Value Reference Range Interpretation Comments U Creatinine (test code = U Creatinine) 36.2 [facility]2015-06-19 20:00:00 Test Item Value Reference Range Interpretation Comments U Chloride (test code = U Chloride) 72 [facility]2015-06-19 20:00:00 Test Item Value Reference Range Interpretation Comments U Sodium (test code = U Sodium) 53 [facility]2015-06-19 20:00:00 Test Item Value Reference Range Interpretation Comments U Osmolality (test code = U Osmolality) 344 300-800 [facility]2015-06-19 20:00:00 Test Item Value Reference Range Interpretation Comments U Creatinine (test code = U Creatinine) 36.2 [facility]2015-06-19 20:00:00 Test Item Value Reference Range Interpretation Comments U Chloride (test code = U Chloride) 72 [facility]2015-06-19 20:00:00 Test Item Value Reference Range Interpretation Comments U Sodium (test code = U Sodium) 53 [facility]2015-06-19 20:00:00 Test Item Value Reference Range Interpretation Comments U Osmolality (test code = U Osmolality) 344 300-800 [facility]2015-06-19 20:00:00 Test Item Value Reference Range Interpretation Comments U Creatinine (test code = U Creatinine) 36.2 [facility]2015-06-19 20:00:00 Test Item Value Reference Range Interpretation Comments U Chloride (test code = U Chloride) 72 [facility] [id number] 16:09:00 Test Item Value Reference Range Interpretation Comments CK MB (test code = CK MB) 7.2 0.5-3.6 [facility] Vis[employer] MedicalAC [id number] 16:09:00 Test Item Value Reference Range Interpretation Comments BNP (test code = BNP) 92 [facility] StephenvilleNeurala [id number] 16:09:00 Test Item Value Reference Range Interpretation Comments Total CK (test code = Total CK) 493 12-191 [facility] [employer] [id number] 16:09:00 Test Item Value Reference Range Interpretation Comments CK MB Index (test 1.5 See_Comment [Automate d message] The code = CK MB Index) system w [facility] generated this result transmit stuart reference range : <=2.5. The reference range was not used to interpr et this result as cherry l/abnormal. [facility] [employer]2015-06-19 16:09:00 Test Item Value Reference Range Interpretation Comments Troponin-I (test code 0.11 See_Comment [Auto mated message] The = Troponin-I) system which g enerated this result transmit stuart reference range : <=0.40. The reference r jose alfredo was not used to interpr et this result as cherry l/abnormal. [employer]2015-06-19 16:09:00 Test Item Value Reference Range Interpretation Comments Procalcitonin Lvl <0.05 ng/mL See_Comment [Automate d message] (test code = The system ic h Procalcitonin Lvl) generated this result transmit stuart reference range : <=0.10. The reference range was not used to interpret this result as normal/abnormal . [employer]2015-06-19 16:09:00 Test Item Value Reference Range Interpretation Comments Bili Total (test code = Bili Total) 0.7 0.2-1.3 [facility] [employer]2015-06-19 16:09:00 Test Item Value Reference Range Interpretation Comments AST (test code = AST) 28 See_Comment [Auto mated message] The system which ge nerated this result transmit stuart reference range : <=37. The reference range was not used to interpr et this result as cherry l/abnormal. [employer]2015-06-19 16:09:00 Test Item Value Reference Range Interpretation Comments Globulin (test code = Globulin) 3.5 2.0-4.0 [facility] [employer] [id number] 16:09:00 Test Item Value Reference Range Interpretation Comments Total Protein (test code = Total 7.3 6.4-8.4 Protein) [facility] StephenvilleInveni [id number] 16:09:00 Test Item Value Reference Range Interpretation Comments Albumin Lvl (test code = Albumin Lvl) 3.8 3.5-5.0 [facility] [employer] [id number] 16:09:00 Test Item Value Reference Range Interpretation Comments Alk Phos (test code = Alk Phos) 38 39-136 [facility] [employer] [id number] 16:09:00 Test Item Value Reference Range Interpretation Comments ALT (test code = ALT) 24 See_Comment [Auto mated message] The system which ge nerated this result transmit stuart reference range : <=65. The reference range was not used to interpr et this result as cherry l/abnormal. [facility] [employer] [id number] 16:09:00 Test Item Value Reference Range Interpretation Comments A/G Ratio (test code = A/G Ratio) 1.1 0.7-1.6 [facility] [employer]2015-06-19 16:09:00 Test Item Value Reference Range Interpretation Comments B/C Ratio (test code = B/C Ratio) 11 6-25 [facility]villePerfect [facility]2015-06-19 16:09:00 Test Item Value Reference Range Interpretation Comments CK MB (test code = CK MB) 7.2 0.5-3.6 [facility] [employer]2015-06-19 16:09:00 Test Item Value Reference Range Interpretation Comments BNP (test code = BNP) 92 [facility] [employer]2015-06-19 16:09:00 Test Item Value Reference Range Interpretation Comments Total CK (test code = Total CK) 493 12-191 [facility]villePerfect [facility]2015-06-19 16:09:00 Test Item Value Reference Range Interpretation Comments CK MB Index (test 1.5 See_Comment [Automate d message] The code = CK MB Index) system w [facility] generated this result transmit stuart reference range : <=2.5. The reference range was not used to interpr et this result as cherry l/abnormal. [facility] StephenvilleRawbotsCARDIAC [id number] 16:09:00 Test Item Value Reference Range Interpretation Comments Troponin-I (test code 0.11 See_Comment [Auto mated message] The = Troponin-I) system which g enerated this result transmit stuart reference range : <=0.40. The reference r jose alfredo was not used to interpr et this result as cherry l/abnormal. [facility] [employer] [id number] 16:09:00 Test Item Value Reference Range Interpretation Comments Procalcitonin Lvl <0.05 ng/mL See_Comment [Automate d message] (test code = The system whic h Procalcitonin Lvl) generated this result transmit stuart reference range : <=0.10. The reference range was not used to interpret this result as normal/abnormal . [facility] [employer] [id number] 16:09:00 Test Item Value Reference Range Interpretation Comments Bili Total (test code = Bili Total) 0.7 0.2-1.3 [facility] [employer] [id number] 16:09:00 Test Item Value Reference Range Interpretation Comments AST (test code = AST) 28 See_Comment [Auto mated message] The system which ge nerated this result transmit stuart reference range : <=37. The reference range was not used to interpr et this result as cherry l/abnormal. [facility] [employer] [id number] 16:09:00 Test Item Value Reference Range Interpretation Comments Globulin (test code = Globulin) 3.5 2.0-4.0 [facility] [employer] [id number] 16:09:00 Test Item Value Reference Range Interpretation Comments Total Protein (test code = Total 7.3 6.4-8.4 Protein) [facility] [id number] 16:09:00 Test Item Value Reference Range Interpretation Comments Albumin Lvl (test code = Albumin Lvl) 3.8 3.5-5.0 [facility] [employer] [id number] 16:09:00 Test Item Value Reference Range Interpretation Comments Alk Phos (test code = Alk Phos) 38 39-136 [facility] [id number] 16:09:00 Test Item Value Reference Range Interpretation Comments ALT (test code = ALT) 24 See_Comment [Auto mated message] The system which ge nerated this result transmit stuart reference range : <=65. The reference range was not used to interpr et this result as cherry l/abnormal. [employer] [id number] 16:09:00 Test Item Value Reference Range Interpretation Comments A/G Ratio (test code = A/G Ratio) 1.1 0.7-1.6 [facility] [employer] [id number] 16:09:00 Test Item Value Reference Range Interpretation Comments B/C Ratio (test code = B/C Ratio) 11 6-25 [facility] [employer]2015-06-19 16:09:00 Test Item Value Reference Range Interpretation Comments CK MB (test code = CK MB) 7.2 0.5-3.6 [facility] [employer]2015-06-19 16:09:00 Test Item Value Reference Range Interpretation Comments BNP (test code = BNP) 92 [facility]2015-06-19 16:09:00 Test Item Value Reference Range Interpretation Comments Total CK (test code = Total CK) 493 12-191 [facility]2015-06-19 16:09:00 Test Item Value Reference Range Interpretation Comments CK MB Index (test 1.5 See_Comment [Automate d message] The code = CK MB Index) system w [facility] generated this result transmit stuart reference range : <=2.5. The reference range was not used to interpr et this result as cherry l/abnormal. [facility] [employer]2015-06-19 16:09:00 Test Item Value Reference Range Interpretation Comments Troponin-I (test code 0.11 See_Comment [Auto mated message] The = Troponin-I) system which g enerated this result transmit stuart reference range : <=0.40. The reference r jose alfredo was not used to interpr et this result as cherry l/abnormal. [facility] [employer] [id number] 16:09:00 Test Item Value Reference Range Interpretation Comments Procalcitonin Lvl <0.05 ng/mL See_Comment [Automate d message] (test code = The system whic h Procalcitonin Lvl) generated this result transmit stuart reference range : <=0.10. The reference range was not used to interpret this result as normal/abnormal . [facility]2015-06-19 16:09:00 Test Item Value Reference Range Interpretation Comments Bili Total (test code = Bili Total) 0.7 0.2-1.3 [facility]2015-06-19 16:09:00 Test Item Value Reference Range Interpretation Comments AST (test code = AST) 28 See_Comment [Auto mated message] The system which ge nerated this result transmit stuart reference range : <=37. The reference range was not used to interpr et this result as cherry l/abnormal. [facility]2015-06-19 16:09:00 Test Item Value Reference Range Interpretation Comments Globulin (test code = Globulin) 3.5 2.0-4.0 [facility]2015-06-19 16:09:00 Test Item Value Reference Range Interpretation Comments Total Protein (test code = Total 7.3 6.4-8.4 Protein) [facility]2015-06-19 16:09:00 Test Item Value Reference Range Interpretation Comments Albumin Lvl (test code = Albumin Lvl) 3.8 3.5-5.0 [facility]2015-06-19 16:09:00 Test Item Value Reference Range Interpretation Comments Alk Phos (test code = Alk Phos) 38 39-136 [facility]2015-06-19 16:09:00 Test Item Value Reference Range Interpretation Comments ALT (test code = ALT) 24 See_Comment [Auto mated message] The system which ge nerated this result transmit stuart reference range : <=65. The reference range was not used to interpr et this result as cherry l/abnormal. [facility]2015-06-19 16:09:00 Test Item Value Reference Range Interpretation Comments A/G Ratio (test code = A/G Ratio) 1.1 0.7-1.6 [facility]2015-06-19 16:09:00 Test Item Value Reference Range Interpretation Comments B/C Ratio (test code = B/C Ratio) 11 6-25 [id number] 15:08:00 Test Item Value Reference Range Interpretation Comments Basophils # (test code 0.1 See_Comment [Aut omated message] The = Basophils #) system which generated this result tra nsmitted reference range : <=0.2. The reference r jose alfredo was not used to int erpret this result as normal/abnormal . [facility] Cypre[id number] 15:08:00 Test Item Value Reference Range Interpretation Comments Segs-Bands # (test code = Segs-Bands #) 10.7 1.5-8.1 [facility] CypressWfphtatUNUSVTRNOE5220-07-53 15:08:00 Test Item Value Reference Range Interpretation Comments Lymphocytes # (test code = Lymphocytes 1.2 1.0-5.5 #) [facility] CypressOhicgsxUCQDCYQIKI1705-65-36 15:08:00 Test Item Value Reference Range Interpretation Comments Monocytes # (test code 1.5 See_Comment [Aut omated message] The = Monocytes #) system which generated this result tra nsmitted reference range : <=0.8. The reference r jose alfredo was not used to int erpret this result as normal/abnormal . [facility] CypressZunhptmHKXQAAUOSG9530-02-30 15:08:00 Test Item Value Reference Range Interpretation Comments Segs (test code = Segs) 79.6 45.0-75.0 [facility] CypressEtaqszzVNFFGIHDZP5249-89-84 15:08:00 Test Item Value Reference Range Interpretation Comments Lymphocytes (test code = Lymphocytes) 8.8 20.0-40.0 [facility] CypressCrukcwbZLOZLOYCPG7267-86-13 15:08:00 Test Item Value Reference Range Interpretation Comments Monocytes (test code = Monocytes) 10.8 2.0-12.0 [facility] CypressIfsmhzxQKAZYBPJUU4445-90-98 15:08:00 Test Item Value Reference Range Interpretation Comments Basophils (test code = 0.5 See_Comment [Aut omated message] The Basophils) system which ge nerated this result tra nsmitted reference range : <=1.0. The reference r jose alfredo was not used to int erpret this result as normal/abnormal . [facility] CypressKvvkxpdDOYZEJXTKO0726-92-03 15:08:00 Test Item Value Reference Range Interpretation Comments Eosinophils (test code = 0.3 See_Comment [A utomated message] The Eosinophils) system which ge nerated this result tra nsmitted reference range : <=4.0. The reference r jose alfredo was not used to int erpret this result as normal/abnormal . [facility] CypressXbswbetZPKLOJVIUQ2872-27-39 15:08:00 Test Item Value Reference Range Interpretation Comments PT (test code = PT) 13.3 s 12.0-14.7 [facility] CypressHwudnyjPVGTWJJMKJ5732-42-38 15:08:00 Test Item Value Reference Range Interpretation Comments PTT (test code = PTT) 26.3 s 22.9-35.8 [facility] CypressOhzazkzMIGWPXDHFQ3594-63-48 15:08:00 Test Item Value Reference Range Interpretation Comments INR (test code = INR) 1.01 0.85-1.17 [facility] CypressZpcuspmNQITWZXAMF3256-21-72 15:08:00 Test Item Value Reference Range Interpretation Comments MCHC (test code = MCHC) 33.5 32.0-36.0 [facility] CypressTaxcqtxHEQPKGPXJV8594-80-70 15:08:00 Test Item Value Reference Range Interpretation Comments RDW (test code = RDW) 13.0 11.5-14.5 [facility] CypressGuiglrePVENJYPDPE5275-06-21 15:08:00 Test Item Value Reference Range Interpretation Comments Hct (test code = Hct) 39.1 42.0-54.0 [facility] CypressNnpuourHYMPHLSMFI3341-09-58 15:08:00 Test Item Value Reference Range Interpretation Comments WBC (test code = WBC) 13.5 3.7-10.4 [facility] CypressGoxdrqfDPEHUHIPXV2389-33-57 15:08:00 Test Item Value Reference Range Interpretation Comments MCV (test code = MCV) 90.1 80.0-94.0 [facility] CypressFfejqdzWEMUYHVWXU4136-86-15 15:08:00 Test Item Value Reference Range Interpretation Comments MCH (test code = MCH) 30.2 pg 27.0-31.0 [facility] CypressVoqjcdcRRJUVJSBFY4143-55-70 15:08:00 Test Item Value Reference Range Interpretation Comments MPV (test code = MPV) 9.5 7.4-10.4 [facility] CypressNnyybpqBJSGMCMDUN4936-27-10 15:08:00 Test Item Value Reference Range Interpretation Comments RBC (test code = RBC) 4.34 4.70-6.10 [facility] CypressRmgdanwLIXXZWESBO4415-43-97 15:08:00 Test Item Value Reference Range Interpretation Comments Hgb (test code = Hgb) 13.1 14.0-18.0 [facility]ieUckrrlvPUWDIMQLSC2813-04-32 15:08:00 Test Item Value Reference Range Interpretation Comments Etoh (%) (test code = Etoh (%)) [facility] gt [facility] BxdfzesFYMNBJHAQA7693-38-21 15:08:00 Test Item Value Reference Range Interpretation Comments Ethanol Lvl (test code = Ethanol Lvl) no gt [facility] AND [id number] 15:08:00 Test Item Value Reference Range Interpretation Comments UA Ketones (test code Negative *NA*(02/17/15 = UA Ketones) 10:08 AM) [facility] AND [id number] 15:08:00 Test Item Value Reference Range Interpretation Comments UA Bili (test code = Negative *NA*(02/17/15 UA Bili) 10:08 AM) [facility] AND [id number] 15:08:00 Test Item Value Reference Range Interpretation Comments UA Urobilinogen (test code = UA 0.2 0.1-1.0 Urobilinogen) [facility] AND [id number] 15:08:00 Test Item Value Reference Range Interpretation Comments UA Blood (test code = Negative (02/17/15 10:08 UA Blood) AM) [facility] AND [id number] 15:08:00 Test Item Value Reference Range Interpretation Comments UA Nitrite (test code Negative (02/17/15 10:08 = UA Nitrite) AM) [facility] AND [id number] 15:08:00 Test Item Value Reference Range Interpretation Comments UA Leuk Est (test Negative (02/17/15 10:08 code = UA Leuk Est) AM) [facility] AND [id number] 15:08:00 Test Item Value Reference Range Interpretation Comments UA Spec Grav (test *NA*(02/17/15 10:08 AM) code = UA Spec Grav) [facility] AND [id number] 15:08:00 Test Item Value Reference Range Interpretation Comments UA Glucose (test code = UA Glucose) 100 mg/dL [facility] AND [id number] 15:08:00 Test Item Value Reference Range Interpretation Comments UA Protein (test code Negative (02/17/15 10:08 = UA Protein) AM) [facility] AND [id number] 15:08:00 Test Item Value Reference Range Interpretation Comments UA pH (test code = UA pH) 7.0 1 5.0-8.0 [facility] AND [id number] 15:08:00 Test Item Value Reference Range Interpretation Comments UA Color (test code = Yellow *NA*(02/17/15 UA Color) 10:08 AM) [facility] AND [id number] 15:08:00 Test Item Value Reference Range Interpretation Comments UA Turbidity (test code = Clear (02/17/15 10:08 UA Turbidity) AM) [facility] AND [id number] 15:08:00 Test Item Value Reference Range Interpretation Comments UA WBC (test code = UA None Seen (02/17/15 WBC) 10:08 AM) [facility] AND [id number] 15:08:00 Test Item Value Reference Range Interpretation Comments UA RBC (test None Seen See_Comment [Automated mes moises] code = UA RBC) (02/17/15 10:08 The system which AM) generated this result transmitted ref erence range: <=2. The reference range was not used to int erpret this result as normal/abnormal . [facility] AND [id number] 15:08:00 Test Item Value Reference Range Interpretation Comments UA Bacteria (test code = None Seen (02/17/15 UA Bacteria) 10:08 AM) [facility] AND [id number] 15:08:00 Test Item Value Reference Range Interpretation Comments UA Sq Epi (test code = None Seen (02/17/15 UA Sq Epi) 10:08 AM) [facility] CypressGlnlrsgIILWGJNKNW6115-81-28 15:08:00 Test Item Value Reference Range Interpretation Comments Basophils # (test code 0.1 See_Comment [Aut omated message] The = Basophils #) system which generated this result tra nsmitted reference range : <=0.2. The reference r jose alfredo was not used to int erpret this result as normal/abnormal . [facility] CypressLhdipizJMPAOHSLRC7570-24-66 15:08:00 Test Item Value Reference Range Interpretation Comments Segs-Bands # (test code = Segs-Bands #) 10.7 1.5-8.1 [facility] CypressBzegnesXDFTOMRVDP9020-75-36 15:08:00 Test Item Value Reference Range Interpretation Comments Lymphocytes # (test code = Lymphocytes 1.2 1.0-5.5 #) [facility] CypressKfxbbexFGTGHJTNMQ8665-73-64 15:08:00 Test Item Value Reference Range Interpretation Comments Monocytes # (test code 1.5 See_Comment [Aut omated message] The = Monocytes #) system which generated this result tra nsmitted reference range : <=0.8. The reference r jose alfredo was not used to int erpret this result as normal/abnormal . [facility] CypressEgynhhwCOPDUCMSWB3829-40-88 15:08:00 Test Item Value Reference Range Interpretation Comments Segs (test code = Segs) 79.6 45.0-75.0 [facility] CypressDjuqzcuKPOJQUBYVP2682-13-37 15:08:00 Test Item Value Reference Range Interpretation Comments Lymphocytes (test code = Lymphocytes) 8.8 20.0-40.0 [facility] CypressGybbpaiXZIYONQHYA3373-01-15 15:08:00 Test Item Value Reference Range Interpretation Comments Monocytes (test code = Monocytes) 10.8 2.0-12.0 [facility] CypressGpxmihtWKXWERKMXO2203-69-09 15:08:00 Test Item Value Reference Range Interpretation Comments Basophils (test code = 0.5 See_Comment [Aut omated message] The Basophils) system which ge nerated this result tra nsmitted reference range : <=1.0. The reference r jose alfredo was not used to int erpret this result as normal/abnormal . [facility] CypressElsaxvkGCTGBXRUBW0725-39-56 15:08:00 Test Item Value Reference Range Interpretation Comments Eosinophils (test code = 0.3 See_Comment [A utomated message] The Eosinophils) system which ge nerated this result tra nsmitted reference range : <=4.0. The reference r jose alfredo was not used to int erpret this result as normal/abnormal . [facility] CypressRvwbqmqAGXZGGWXPC0819-08-41 15:08:00 Test Item Value Reference Range Interpretation Comments PT (test code = PT) 13.3 s 12.0-14.7 [facility] CypressNzopvmwLOCCEYCWEG0080-95-49 15:08:00 Test Item Value Reference Range Interpretation Comments PTT (test code = PTT) 26.3 s 22.9-35.8 [facility] CypressJhhiktiZUCSOTOQKI3990-68-69 15:08:00 Test Item Value Reference Range Interpretation Comments INR (test code = INR) 1.01 0.85-1.17 [facility]YjfjutqOXTVVGTHYL8991-56-33 15:08:00 Test Item Value Reference Range Interpretation Comments MCHC (test code = MCHC) 33.5 32.0-36.0 [facility]mswfsgCJCVGEDNUZ2751-68-14 15:08:00 Test Item Value Reference Range Interpretation Comments RDW (test code = RDW) 13.0 11.5-14.5 [facility] HospitalEfeoagnPTIBMIMMIS1609-12-51 15:08:00 Test Item Value Reference Range Interpretation Comments Hct (test code = Hct) 39.1 42.0-54.0 [facility] HospitalOarneiqYFVEOVMUTI4499-63-63 15:08:00 Test Item Value Reference Range Interpretation Comments WBC (test code = WBC) 13.5 3.7-10.4 [facility] HospitalMoyabrlIWLWZTZALC8382-13-69 15:08:00 Test Item Value Reference Range Interpretation Comments MCV (test code = MCV) 90.1 80.0-94.0 [facility] HospitalPbcxegrKZZEKQQXAO0824-14-37 15:08:00 Test Item Value Reference Range Interpretation Comments MCH (test code = MCH) 30.2 pg 27.0-31.0 [facility] HospitalEpvvnnuBSREKOZMZD4325-46-30 15:08:00 Test Item Value Reference Range Interpretation Comments MPV (test code = MPV) 9.5 7.4-10.4 [facility] HospitalXodyhohRLFPNEOZZS0557-76-74 15:08:00 Test Item Value Reference Range Interpretation Comments RBC (test code = RBC) 4.34 4.70-6.10 [facility] HospitalAqxwvxpHPSCYJZDFV1223-47-51 15:08:00 Test Item Value Reference Range Interpretation Comments Hgb (test code = Hgb) 13.1 14.0-18.0 [facility]ieXpkfflrMJTAZFDGEQ5240-87-24 15:08:00 Test Item Value Reference Range Interpretation Comments Etoh (%) (test code = Etoh (%)) no gt [facility]villeArakbxuKAQMZEJIJF2400-44-56 15:08:00 Test Item Value Reference Range Interpretation Comments Ethanol Lvl (test code = Ethanol Lvl) no gt [facility]villeannJE[facility] AND [id number] 15:08:00 Test Item Value Reference Range Interpretation Comments UA Ketones (test code Negative *NA*(02/17/15 = UA Ketones) 10:08 AM) [facility] AND [id number] 15:08:00 Test Item Value Reference Range Interpretation Comments UA Bili (test code = Negative *NA*(02/17/15 UA Bili) 10:08 AM) [facility] AND [id number] 15:08:00 Test Item Value Reference Range Interpretation Comments UA Urobilinogen (test code = UA 0.2 0.1-1.0 Urobilinogen) [facility] AND [id number] 15:08:00 Test Item Value Reference Range Interpretation Comments UA Blood (test code = Negative (02/17/15 10:08 UA Blood) AM) [facility] AND [id number] 15:08:00 Test Item Value Reference Range Interpretation Comments UA Nitrite (test code Negative (02/17/15 10:08 = UA Nitrite) AM) [facility] AND [id number] 15:08:00 Test Item Value Reference Range Interpretation Comments UA Leuk Est (test Negative (02/17/15 10:08 code = UA Leuk Est) AM) [facility] AND [id number] 15:08:00 Test Item Value Reference Range Interpretation Comments UA Spec Grav (test *NA*(02/17/15 10:08 AM) code = UA Spec Grav) [facility] AND [id number] 15:08:00 Test Item Value Reference Range Interpretation Comments UA Glucose (test code = UA Glucose) 100 mg/dL [facility] AND [id number] 15:08:00 Test Item Value Reference Range Interpretation Comments UA Protein (test code Negative (02/17/15 10:08 = UA Protein) AM) [facility] AND [id number] 15:08:00 Test Item Value Reference Range Interpretation Comments UA pH (test code = UA pH) 7.0 1 5.0-8.0 [facility] AND [id number] 15:08:00 Test Item Value Reference Range Interpretation Comments UA Color (test code = Yellow *NA*(02/17/15 UA Color) 10:08 AM) [facility] AND [id number] 15:08:00 Test Item Value Reference Range Interpretation Comments UA Turbidity (test code = Clear (6/19/15 10:08 UA Turbidity) AM) [facility] AND [id number] 15:08:00 Test Item Value Reference Range Interpretation Comments UA WBC (test code = UA None Seen (02/17/15 WBC) 10:08 AM) [facility] AND [id number] 15:08:00 Test Item Value Reference Range Interpretation Comments UA RBC (test None Seen See_Comment [Automated mes moises] code = UA RBC) (02/17/15 10:08 The system which AM) generated this result transmitted ref erence range: <=2. The reference range was not used to int erpret this result as normal/abnormal . [facility] AND [id number] 15:08:00 Test Item Value Reference Range Interpretation Comments UA Bacteria (test code = None Seen (02/17/15 UA Bacteria) 10:08 AM) [facility] AND [id number] 15:08:00 Test Item Value Reference Range Interpretation Comments UA Sq Epi (test code = None Seen (02/17/15 UA Sq Epi) 10:08 AM) [facility] CypressQcubmjlJZGHUWSFPI0287-18-71 15:08:00 Test Item Value Reference Range Interpretation Comments Basophils # (test code 0.1 See_Comment [Aut omated message] The = Basophils #) system which generated this result tra nsmitted reference range : <=0.2. The reference r jose alfredo was not used to int erpret this result as normal/abnormal . [facility] CypressEiuhkodOIVWBNMOUQ3712-18-42 15:08:00 Test Item Value Reference Range Interpretation Comments Segs-Bands # (test code = Segs-Bands #) 10.7 1.5-8.1 [facility] CypressYtjnpmzOYMQAILYZT8503-73-61 15:08:00 Test Item Value Reference Range Interpretation Comments Lymphocytes # (test code = Lymphocytes 1.2 1.0-5.5 #) [facility] CypressUwdlbsqPUXQWSBKKD8942-55-41 15:08:00 Test Item Value Reference Range Interpretation Comments Monocytes # (test code 1.5 See_Comment [Aut omated message] The = Monocytes #) system which generated this result tra nsmitted reference range : <=0.8. The reference r jose alfredo was not used to int erpret this result as normal/abnormal . [facility] CypressYxvzvwkMPHJHGNDKA1254-14-19 15:08:00 Test Item Value Reference Range Interpretation Comments Segs (test code = Segs) 79.6 45.0-75.0 [facility] CypressQkyurngJPXVUFRBFF6021-90-68 15:08:00 Test Item Value Reference Range Interpretation Comments Lymphocytes (test code = Lymphocytes) 8.8 20.0-40.0 [facility] CypressVdmgyjzQBIUMCOUOF4501-44-28 15:08:00 Test Item Value Reference Range Interpretation Comments Monocytes (test code = Monocytes) 10.8 2.0-12.0 [facility] CypressOvspboxMXXPMYHVVH5985-44-89 15:08:00 Test Item Value Reference Range Interpretation Comments Basophils (test code = 0.5 See_Comment [Aut omated message] The Basophils) system which ge nerated this result tra nsmitted reference range : <=1.0. The reference r jose alfredo was not used to int erpret this result as normal/abnormal . [facility] CypressWdqqudtIBWHVSJGVZ3634-46-17 15:08:00 Test Item Value Reference Range Interpretation Comments Eosinophils (test code = 0.3 See_Comment [A utomated message] The Eosinophils) system which ge nerated this result tra nsmitted reference range : <=4.0. The reference r jose alfredo was not used to int erpret this result as normal/abnormal . [facility] CypressVfcaavrDDZKZTGACU2536-64-56 15:08:00 Test Item Value Reference Range Interpretation Comments PT (test code = PT) 13.3 s 12.0-14.7 [facility] CypressIwfxhykTFBOJUGLST4886-84-66 15:08:00 Test Item Value Reference Range Interpretation Comments PTT (test code = PTT) 26.3 s 22.9-35.8 [facility] CypressGjadbxzOFOJTZJMPM5407-93-27 15:08:00 Test Item Value Reference Range Interpretation Comments INR (test code = INR) 1.01 0.85-1.17 [facility] CypressNelanoaRHDIHHRRHD7088-17-00 15:08:00 Test Item Value Reference Range Interpretation Comments MCHC (test code = MCHC) 33.5 32.0-36.0 [facility] CypressWxqeuytEJTKZGNZLR9556-97-70 15:08:00 Test Item Value Reference Range Interpretation Comments RDW (test code = RDW) 13.0 11.5-14.5 [facility] CypressAziscvlIKKPPRYUKU8785-81-21 15:08:00 Test Item Value Reference Range Interpretation Comments Hct (test code = Hct) 39.1 42.0-54.0 [facility]ieYfdgdqgMWNNSAGNFZ3735-99-41 15:08:00 Test Item Value Reference Range Interpretation Comments WBC (test code = WBC) 13.5 3.7-10.4 [facility]BqszildOUITJDKPLY2813-40-51 15:08:00 Test Item Value Reference Range Interpretation Comments MCV (test code = MCV) 90.1 80.0-94.0 [facility] HospitalTxblrucOXPGUHFMVD5270-89-87 15:08:00 Test Item Value Reference Range Interpretation Comments MCH (test code = MCH) 30.2 pg 27.0-31.0 [facility] HospitalIkwkqnpCHETXHZGPN0755-28-32 15:08:00 Test Item Value Reference Range Interpretation Comments MPV (test code = MPV) 9.5 7.4-10.4 [facility] HospitalFpduxlwYAILHXRNFL5433-46-21 15:08:00 Test Item Value Reference Range Interpretation Comments RBC (test code = RBC) 4.34 4.70-6.10 [facility] HospitalFhykvpxCHTYACFHCI3599-42-62 15:08:00 Test Item Value Reference Range Interpretation Comments Hgb (test code = Hgb) 13.1 14.0-18.0 [facility]ieNgopferNXKVRKPLXC4251-03-12 15:08:00 Test Item Value Reference Range Interpretation Comments Etoh (%) (test code = Etoh (%)) no gt [facility]villeRcinfzqAJHGUTZFSW6086-93-31 15:08:00 Test Item Value Reference Range Interpretation Comments Ethanol Lvl (test code = Ethanol Lvl) no gt [facility] [id number] 15:08:00 Test Item Value Reference Range Interpretation Comments UA Ketones (test code Negative *NA*(02/17/15 = UA Ketones) 10:08 AM) [facility]annUR[facility] AND [id number] 15:08:00 Test Item Value Reference Range Interpretation Comments UA Bili (test code = Negative *NA*(02/17/15 UA Bili) 10:08 AM) [facility]annURINE AND [id number] 15:08:00 Test Item Value Reference Range Interpretation Comments UA Urobilinogen (test code = UA 0.2 0.1-1.0 Urobilinogen) [facility] AND [id number] 15:08:00 Test Item Value Reference Range Interpretation Comments UA Blood (test code = Negative (02/17/15 10:08 UA Blood) AM) [facility] AND [id number] 15:08:00 Test Item Value Reference Range Interpretation Comments UA Nitrite (test code Negative (02/17/15 10:08 = UA Nitrite) AM) [facility] AND [id number] 15:08:00 Test Item Value Reference Range Interpretation Comments UA Leuk Est (test Negative (02/17/15 10:08 code = UA Leuk Est) AM) [facility] AND [id number] 15:08:00 Test Item Value Reference Range Interpretation Comments UA Spec Grav (test *NA*(02/17/15 10:08 AM) code = UA Spec Grav) [facility] AND [id number] 15:08:00 Test Item Value Reference Range Interpretation Comments UA Glucose (test code = UA Glucose) 100 mg/dL [facility] AND [id number] 15:08:00 Test Item Value Reference Range Interpretation Comments UA Protein (test code Negative (02/17/15 10:08 = UA Protein) AM) [facility] AND [id number] 15:08:00 Test Item Value Reference Range Interpretation Comments UA pH (test code = UA pH) 7.0 1 5.0-8.0 [facility] AND [id number] 15:08:00 Test Item Value Reference Range Interpretation Comments UA Color (test code = Yellow *NA*(02/17/15 UA Color) 10:08 AM) [facility] AND [id number] 15:08:00 Test Item Value Reference Range Interpretation Comments UA Turbidity (test code = Clear (02/17/15 10:08 UA Turbidity) AM) [facility] AND [id number] 15:08:00 Test Item Value Reference Range Interpretation Comments UA WBC (test code = UA None Seen (02/17/15 WBC) 10:08 AM) [facility] AND [id number] 15:08:00 Test Item Value Reference Range Interpretation Comments UA RBC (test None Seen See_Comment [Automated mes moises] code = UA RBC) (02/17/15 10:08 The system which AM) generated this result transmitted ref erence range: <=2. The reference range was not used to int erpret this result as normal/abnormal . [facility]ann[facility] AND [id number] 15:08:00 Test Item Value Reference Range Interpretation Comments UA Bacteria (test code = None Seen (02/17/15 UA Bacteria) 10:08 AM) [facility]annJE[facility] AND [id number] 15:08:00 Test Item Value Reference Range Interpretation Comments UA Sq Epi (test code = None Seen (02/17/15 UA Sq Epi) 10:08 AM) [facility] [id number] 15:55:00 Test Item Value Reference Range Interpretation Comments eGFR (test code = eGFR) 68 [facility]2014-10-10 15:55:00 Test Item Value Reference Range Interpretation Comments Globulin (test code = Globulin) 3.3 2.0-4.0 [facility]2014-10-10 15:55:00 Test Item Value Reference Range Interpretation Comments A/G Ratio (test code = A/G Ratio) 1.0 0.7-1.6 [facility]2014-10-10 15:55:00 Test Item Value Reference Range Interpretation Comments Alk Phos (test code = Alk Phos) 43 39-136 [facility]2014-10-10 15:55:00 Test Item Value Reference Range Interpretation Comments Bili Total (test code = Bili Total) 0.3 0.2-1.3 [facility]2014-10-10 15:55:00 Test Item Value Reference Range Interpretation Comments B/C Ratio (test code = B/C Ratio) 17 6-25 [facility]2014-10-10 15:55:00 Test Item Value Reference Range Interpretation Comments AGAP (test code = AGAP) 10.8 10.0-20.0 [facility]2014-10-10 15:55:00 Test Item Value Reference Range Interpretation Comments Calcium Lvl (test code = Calcium Lvl) 9.3 8.5-10.5 [facility]2014-10-10 15:55:00 Test Item Value Reference Range Interpretation Comments Total Protein (test code = Total 6.7 6.4-8.4 Protein) [facility]2014-10-10 15:55:00 Test Item Value Reference Range Interpretation Comments Albumin Lvl (test code = Albumin Lvl) 3.4 3.5-5.0 [facility]2014-10-10 15:55:00 Test Item Value Reference Range Interpretation Comments ALT (test code = ALT) 22 See_Comment [Auto mated message] The system which ge nerated this result transmit stuart reference range : <=65. The reference range was not used to interpr et this result as cherry l/abnormal. [facility]2014-10-10 15:55:00 Test Item Value Reference Range Interpretation Comments AST (test code = AST) 15 See_Comment [Auto mated message] The system which ge nerated this result transmit stuart reference range : <=37. The reference range was not used to interpr et this result as cherry l/abnormal. [facility]2014-10-10 15:55:00 Test Item Value Reference Range Interpretation Comments CO2 (test code = CO2) 36 24-32 [facility]2014-10-10 15:55:00 Test Item Value Reference Range Interpretation Comments Glucose Lvl (test code = Glucose Lvl) 301 70-99 [facility]2014-10-10 15:55:00 Test Item Value Reference Range Interpretation Comments BUN (test code = BUN) 19 7-22 [facility]2014-10-10 15:55:00 Test Item Value Reference Range Interpretation Comments Sodium Lvl (test code = Sodium Lvl) 137 135-145 [facility]2014-10-10 15:55:00 Test Item Value Reference Range Interpretation Comments Creatinine Lvl (test code = Creatinine 1.1 0.5-1.4 Lvl) [facility]2014-10-10 15:55:00 Test Item Value Reference Range Interpretation Comments Potassium Lvl (test code = Potassium 4.8 3.5-5.1 Lvl) [facility]2014-10-10 15:55:00 Test Item Value Reference Range Interpretation Comments Chloride Lvl (test code = Chloride Lvl) 95 95-109 [facility] CypressNgrbmpgMIVVAUMVUG0503-24-77 15:55:00 Test Item Value Reference Range Interpretation Comments MCH (test code = MCH) 31.6 pg 27.0-31.0 [facility] CypressMtynbxqLQGOURDGFT3515-66-71 15:55:00 Test Item Value Reference Range Interpretation Comments MCHC (test code = MCHC) 34.5 32.0-36.0 [facility] CypressRgdmcemFOYHCPHTZI2616-36-69 15:55:00 Test Item Value Reference Range Interpretation Comments MCV (test code = MCV) 91.6 80.0-94.0 [facility] CypressPquqbucHCUAEPPFCO5689-07-12 15:55:00 Test Item Value Reference Range Interpretation Comments Hct (test code = Hct) 41.8 42.0-54.0 [facility] CypressDrsjwlvGUGGNFTBRO0612-64-36 15:55:00 Test Item Value Reference Range Interpretation Comments Platelet (test code = Platelet) 187 133-450 [facility] CypressMdixpiwLWIKMFYGOL8706-54-22 15:55:00 Test Item Value Reference Range Interpretation Comments MPV (test code = MPV) 10.2 7.4-10.4 [facility] CypressSckdnuzWDXUSADUSB7112-39-23 15:55:00 Test Item Value Reference Range Interpretation Comments RDW (test code = RDW) 14.1 11.5-14.5 [facility] CypressFohtvcvDMISTKQHBR7039-85-10 15:55:00 Test Item Value Reference Range Interpretation Comments RBC (test code = RBC) 4.56 4.70-6.10 [facility] CypressFaowzovNSAJNWYYIZ8824-37-40 15:55:00 Test Item Value Reference Range Interpretation Comments Hgb (test code = Hgb) 14.4 14.0-18.0 [facility] CypressAfbijdkKXOAZXSUFY7162-34-26 15:55:00 Test Item Value Reference Range Interpretation Comments WBC (test code = WBC) 14.8 3.7-10.4 [facility]2014-10-10 15:55:00 Test Item Value Reference Range Interpretation Comments eGFR (test code = eGFR) 68 [facility]2014-10-10 15:55:00 Test Item Value Reference Range Interpretation Comments Globulin (test code = Globulin) 3.3 2.0-4.0 [facility]2014-10-10 15:55:00 Test Item Value Reference Range Interpretation Comments A/G Ratio (test code = A/G Ratio) 1.0 0.7-1.6 [facility]2014-10-10 15:55:00 Test Item Value Reference Range Interpretation Comments Alk Phos (test code = Alk Phos) 43 39-136 [facility]2014-10-10 15:55:00 Test Item Value Reference Range Interpretation Comments Bili Total (test code = Bili Total) 0.3 0.2-1.3 [facility]2014-10-10 15:55:00 Test Item Value Reference Range Interpretation Comments B/C Ratio (test code = B/C Ratio) 17 6-25 [facility]2014-10-10 15:55:00 Test Item Value Reference Range Interpretation Comments AGAP (test code = AGAP) 10.8 10.0-20.0 [facility]2014-10-10 15:55:00 Test Item Value Reference Range Interpretation Comments Calcium Lvl (test code = Calcium Lvl) 9.3 8.5-10.5 [facility]2014-10-10 15:55:00 Test Item Value Reference Range Interpretation Comments Total Protein (test code = Total 6.7 6.4-8.4 Protein) [facility]2014-10-10 15:55:00 Test Item Value Reference Range Interpretation Comments Albumin Lvl (test code = Albumin Lvl) 3.4 3.5-5.0 [facility]2014-10-10 15:55:00 Test Item Value Reference Range Interpretation Comments ALT (test code = ALT) 22 See_Comment [Auto mated message] The system which ge nerated this result transmit stuart reference range : <=65. The reference range was not used to interpr et this result as cherry l/abnormal. [facility]2014-10-10 15:55:00 Test Item Value Reference Range Interpretation Comments AST (test code = AST) 15 See_Comment [Auto mated message] The system which ge nerated this result transmit stuart reference range : <=37. The reference range was not used to interpr et this result as cherry l/abnormal. [facility]2014-10-10 15:55:00 Test Item Value Reference Range Interpretation Comments CO2 (test code = CO2) 36 24-32 [facility]2014-10-10 15:55:00 Test Item Value Reference Range Interpretation Comments Glucose Lvl (test code = Glucose Lvl) 301 70-99 [facility]2014-10-10 15:55:00 Test Item Value Reference Range Interpretation Comments BUN (test code = BUN) 19 7-22 [facility]2014-10-10 15:55:00 Test Item Value Reference Range Interpretation Comments Sodium Lvl (test code = Sodium Lvl) 137 135-145 [facility]2014-10-10 15:55:00 Test Item Value Reference Range Interpretation Comments Creatinine Lvl (test code = Creatinine 1.1 0.5-1.4 Lvl) [facility]2014-10-10 15:55:00 Test Item Value Reference Range Interpretation Comments Potassium Lvl (test code = Potassium 4.8 3.5-5.1 Lvl) [facility]2014-10-10 15:55:00 Test Item Value Reference Range Interpretation Comments Chloride Lvl (test code = Chloride Lvl) 95 95-109 [facility] CypressMgtvtnkFKOJHEXTQV8895-21-49 15:55:00 Test Item Value Reference Range Interpretation Comments MCH (test code = MCH) 31.6 pg 27.0-31.0 [facility] CypressXluwxysYBJJXBHPJK9675-96-76 15:55:00 Test Item Value Reference Range Interpretation Comments MCHC (test code = MCHC) 34.5 32.0-36.0 [facility] CypressFopkhevLITTBUIFBY3362-63-18 15:55:00 Test Item Value Reference Range Interpretation Comments MCV (test code = MCV) 91.6 80.0-94.0 [facility] CypressWclwfpkTDEVYCOIWB4393-41-76 15:55:00 Test Item Value Reference Range Interpretation Comments Hct (test code = Hct) 41.8 42.0-54.0 [facility] CypressMsltgodOFODSWVEYL1010-10-37 15:55:00 Test Item Value Reference Range Interpretation Comments Platelet (test code = Platelet) 187 133-450 [facility] CypressLdvpwzoMDSZQDPGGL6464-79-90 15:55:00 Test Item Value Reference Range Interpretation Comments MPV (test code = MPV) 10.2 7.4-10.4 [facility] CypressWhitehgQWKEVKMQVR3211-13-63 15:55:00 Test Item Value Reference Range Interpretation Comments RDW (test code = RDW) 14.1 11.5-14.5 [facility] CypressSvwaagiAOEKXIZWHS5964-76-46 15:55:00 Test Item Value Reference Range Interpretation Comments RBC (test code = RBC) 4.56 4.70-6.10 [facility] CypressKfkhpxmVGVBFRXBAB1646-95-89 15:55:00 Test Item Value Reference Range Interpretation Comments Hgb (test code = Hgb) 14.4 14.0-18.0 [facility] CypressAxyuopaQRLIZBOQIB0313-38-33 15:55:00 Test Item Value Reference Range Interpretation Comments WBC (test code = WBC) 14.8 3.7-10.4 [facility]2014-10-10 15:55:00 Test Item Value Reference Range Interpretation Comments eGFR (test code = eGFR) 68 [facility]2014-10-10 15:55:00 Test Item Value Reference Range Interpretation Comments Globulin (test code = Globulin) 3.3 2.0-4.0 [facility]2014-10-10 15:55:00 Test Item Value Reference Range Interpretation Comments A/G Ratio (test code = A/G Ratio) 1.0 0.7-1.6 [facility]2014-10-10 15:55:00 Test Item Value Reference Range Interpretation Comments Alk Phos (test code = Alk Phos) 43 39-136 [facility]2014-10-10 15:55:00 Test Item Value Reference Range Interpretation Comments Bili Total (test code = Bili Total) 0.3 0.2-1.3 [facility]2014-10-10 15:55:00 Test Item Value Reference Range Interpretation Comments B/C Ratio (test code = B/C Ratio) 17 6-25 [facility]2014-10-10 15:55:00 Test Item Value Reference Range Interpretation Comments AGAP (test code = AGAP) 10.8 10.0-20.0 [facility]2014-10-10 15:55:00 Test Item Value Reference Range Interpretation Comments Calcium Lvl (test code = Calcium Lvl) 9.3 8.5-10.5 [facility]2014-10-10 15:55:00 Test Item Value Reference Range Interpretation Comments Total Protein (test code = Total 6.7 6.4-8.4 Protein) [facility]2014-10-10 15:55:00 Test Item Value Reference Range Interpretation Comments Albumin Lvl (test code = Albumin Lvl) 3.4 3.5-5.0 [facility]2014-10-10 15:55:00 Test Item Value Reference Range Interpretation Comments ALT (test code = ALT) 22 See_Comment [Auto mated message] The system which ge nerated this result transmit stuart reference range : <=65. The reference range was not used to interpr et this result as cherry l/abnormal. [facility]2014-10-10 15:55:00 Test Item Value Reference Range Interpretation Comments AST (test code = AST) 15 See_Comment [Auto mated message] The system which ge nerated this result transmit stuart reference range : <=37. The reference range was not used to interpr et this result as cherry l/abnormal. [facility]2014-10-10 15:55:00 Test Item Value Reference Range Interpretation Comments CO2 (test code = CO2) 36 24-32 [facility]2014-10-10 15:55:00 Test Item Value Reference Range Interpretation Comments Glucose Lvl (test code = Glucose Lvl) 301 70-99 [facility]2014-10-10 15:55:00 Test Item Value Reference Range Interpretation Comments BUN (test code = BUN) 19 7-22 [facility]2014-10-10 15:55:00 Test Item Value Reference Range Interpretation Comments Sodium Lvl (test code = Sodium Lvl) 137 135-145 [facility]2014-10-10 15:55:00 Test Item Value Reference Range Interpretation Comments Creatinine Lvl (test code = Creatinine 1.1 0.5-1.4 Lvl) [facility]2014-10-10 15:55:00 Test Item Value Reference Range Interpretation Comments Potassium Lvl (test code = Potassium 4.8 3.5-5.1 Lvl) [facility]2014-10-10 15:55:00 Test Item Value Reference Range Interpretation Comments Chloride Lvl (test code = Chloride Lvl) 95 95-109 [facility] CypressLxbttixMNUFMMVSWS3153-30-93 15:55:00 Test Item Value Reference Range Interpretation Comments MCH (test code = MCH) 31.6 pg 27.0-31.0 [facility] CypressDifqzvyQMHRORXNAE2403-72-09 15:55:00 Test Item Value Reference Range Interpretation Comments MCHC (test code = MCHC) 34.5 32.0-36.0 [facility]YrfithyOZDDLYKDEG2750-48-23 15:55:00 Test Item Value Reference Range Interpretation Comments MCV (test code = MCV) 91.6 80.0-94.0 [facility] HospitalEtmylkyGQUZETSCTF4621-39-29 15:55:00 Test Item Value Reference Range Interpretation Comments Hct (test code = Hct) 41.8 42.0-54.0 [facility] HospitalIdbjnxhJIMSNHMPRV8948-89-10 15:55:00 Test Item Value Reference Range Interpretation Comments Platelet (test code = Platelet) 187 133-450 [facility] HospitalToiwwffRIOULKPEKN2956-17-21 15:55:00 Test Item Value Reference Range Interpretation Comments MPV (test code = MPV) 10.2 7.4-10.4 [facility] HospitalLwvczqlBPCPOYKBXS3294-52-52 15:55:00 Test Item Value Reference Range Interpretation Comments RDW (test code = RDW) 14.1 11.5-14.5 [facility] HospitalObcrfkzNXTUMAOFVD7421-61-14 15:55:00 Test Item Value Reference Range Interpretation Comments RBC (test code = RBC) 4.56 4.70-6.10 [facility] HospitalSthhuyuAVBWZYMVSR7675-35-44 15:55:00 Test Item Value Reference Range Interpretation Comments Hgb (test code = Hgb) 14.4 14.0-18.0 [facility] HospitalBtodhgpURGGCIWWCT7171-61-75 15:55:00 Test Item Value Reference Range Interpretation Comments WBC (test code = WBC) 14.8 3.7-10.4 [facility]ieAng[facility] Software [id number] 14:28:00 Test Item Value Reference Range Interpretation Comments Total CK (test code = Total CK) 67 -191 [facility]achieKingtopYEFBMPI0792-60-39 14:28:00 Test Item Value Reference Range Interpretation Comments Troponin-I (test code no gt See_Comment [Auto mated message] The = Troponin-I) system which g enerated this result transmit stuart reference range : <=0.40. The reference r jose alfredo was not used to interpr et this result as cherry l/abnormal. [facility]achieKingtopAUUGIPQ8202-20-99 14:28:00 Test Item Value Reference Range Interpretation Comments Total CK (test code = Total CK) 67 12-191 [facility]ieAng[facility] [id number] 14:28:00 Test Item Value Reference Range Interpretation Comments Troponin-I (test code no gt See_Comment [Auto mated message] The = Troponin-I) system which g enerated this result transmit stuart reference range : <=0.40. The reference r jose alfredo was not used to interpr et this result as cherry l/abnormal. [facility]ieAng[facility] [id number] 14:28:00 Test Item Value Reference Range Interpretation Comments Total CK (test code = Total CK) 67 [facility] [id number] 14:28:00 Test Item Value Reference Range Interpretation Comments Troponin-I (test code no gt See_Comment [Auto mated message] The = Troponin-I) system which g enerated this result transmit stuart reference range : <=0.40. The reference r jose alfredo was not used to interpr et this result as cherry l/abnormal. [facility]villePerfect [facility]2014-10-09 09:10:00 Test Item Value Reference Range Interpretation Comments BNP (test code = BNP) 13 [facility]achieKingtopBEEJAPE1600-26-44 09:10:00 Test Item Value Reference Range Interpretation Comments Total CK (test code = Total CK) 65 [facility]ieAng[facility] [id number] 09:10:00 Test Item Value Reference Range Interpretation Comments Troponin-I (test code no gt See_Comment [Auto mated message] The = Troponin-I) system which g enerated this result transmit stuart reference range : <=0.40. The reference r jose alfredo was not used to interpr et this result as cherry l/abnormal. [facility] [employer] [id number] 09:10:00 Test Item Value Reference Range Interpretation Comments eGFR (test code = eGFR) 76 [facility] [employer] [id number] 09:10:00 Test Item Value Reference Range Interpretation Comments Creatinine Lvl (test code = Creatinine 1.0 0.5-1.4 Lvl) [facility] StephenvillePwjmmlzKYQZFGNOOL3792-78-90 09:10:00 Test Item Value Reference Range Interpretation Comments PTT (test code = PTT) 29.8 s 22.9-35.8 [facility] StephenvilleUbyrapxINRXFBXXQM8888-52-28 09:10:00 Test Item Value Reference Range Interpretation Comments Platelet (test code = Platelet) 174 133-450 [facility] StephenvilleChina [employer]AC [id number] 09:10:00 Test Item Value Reference Range Interpretation Comments BNP (test code = BNP) 13 [facility] [id number] 09:10:00 Test Item Value Reference Range Interpretation Comments Total CK (test code = Total CK) 65 12-191 [facility]ieAng[facility] [id number] 09:10:00 Test Item Value Reference Range Interpretation Comments Troponin-I (test code no gt See_Comment [Auto mated message] The = Troponin-I) system which g enerated this result transmit stuart reference range : <=0.40. The reference r jose alfredo was not used to interpr et this result as cherry l/abnormal. [facility] [employer] [id number] 09:10:00 Test Item Value Reference Range Interpretation Comments eGFR (test code = eGFR) 76 [facility] StephenvilleInveni [id number] 09:10:00 Test Item Value Reference Range Interpretation Comments Creatinine Lvl (test code = Creatinine 1.0 0.5-1.4 Lvl) [facility] Step[id number] 09:10:00 Test Item Value Reference Range Interpretation Comments PTT (test code = PTT) 29.8 s 22.9-35.8 [facility] Step[id number] 09:10:00 Test Item Value Reference Range Interpretation Comments Platelet (test code = Platelet) 174 133-450 [facility]ieAngoss Software [id number] 09:10:00 Test Item Value Reference Range Interpretation Comments BNP (test code = BNP) 13 [facility] StephenvillePerfect Commerce2014-10-09 09:10:00 Test Item Value Reference Range Interpretation Comments Total CK (test code = Total CK) 65 12-191 [facility]achieDexetra [id number] 09:10:00 Test Item Value Reference Range Interpretation Comments Troponin-I (test code no gt See_Comment [Auto mated message] The = Troponin-I) system which g enerated this result transmit stuart reference range : <=0.40. The reference r jose alfredo was not used to interpr et this result as cherry l/abnormal. [facility] [employer]2014-10-09 09:10:00 Test Item Value Reference Range Interpretation Comments eGFR (test code = eGFR) 76 [facility]ieCHEM [id number] 09:10:00 Test Item Value Reference Range Interpretation Comments Creatinine Lvl (test code = Creatinine 1.0 0.5-1.4 Lvl) [id number] 09:10:00 Test Item Value Reference Range Interpretation Comments PTT (test code = PTT) 29.8 s 22.9-35.8 [facility] [id number] 09:10:00 Test Item Value Reference Range Interpretation Comments Platelet (test code = Platelet) 174 133-450 [facility] AND [id number] 02:15:29 Test Item Value Reference Range Interpretation Comments UA Color (test code = Yellow *NA*(06/08/14 UA Color) 9:15 PM) [facility] AND [id number] 02:15:29 Test Item Value Reference Range Interpretation Comments UA Leuk Est (test Negative (06/08/14 9:15 code = UA Leuk Est) PM) [facility] AND [id number] 02:15:29 Test Item Value Reference Range Interpretation Comments UA Nitrite (test code Negative (06/08/14 9:15 = UA Nitrite) PM) [facility] AND [id number] 02:15:29 Test Item Value Reference Range Interpretation Comments UA Urobilinogen (test code = UA 0.2 0.1-1.0 Urobilinogen) [facility] AND [id number] 02:15:29 Test Item Value Reference Range Interpretation Comments UA Glucose (test code Negative (06/08/14 9:15 = UA Glucose) PM) [facility] AND [id number] 02:15:29 Test Item Value Reference Range Interpretation Comments UA Protein (test code = Trace *ABN*(06/08/14 UA Protein) 9:15 PM) [facility] AND [id number] 02:15:29 Test Item Value Reference Range Interpretation Comments UA pH (test code = UA pH) 6.0 1 5.0-8.0 [facility] AND [id number] 02:15:29 Test Item Value Reference Range Interpretation Comments UA Spec Grav (test >=1.030 *ABN*(06/08/14 code = UA Spec Grav) 9:15 PM) [facility]villeann[facility] AND [id number] 02:15:29 Test Item Value Reference Range Interpretation Comments UA Ketones (test code Negative *NA*(06/08/14 = UA Ketones) 9:15 PM) [facility] HermannURINE AND [id number] 02:15:29 Test Item Value Reference Range Interpretation Comments UA Bili (test code = Negative *NA*(06/08/14 UA Bili) 9:15 PM) [facility] AND [id number] 02:15:29 Test Item Value Reference Range Interpretation Comments UA Turbidity (test code = Clear (06/08/14 9:15 UA Turbidity) PM) [facility] AND [id number] 02:15:29 Test Item Value Reference Range Interpretation Comments UA Blood (test code = Negative (06/08/14 9:15 UA Blood) PM) [facility] AND [id number] 02:15:29 Test Item Value Reference Range Interpretation Comments UA WBC (test code = UA WBC) 0-2 /HPF [facility] AND [id number] 02:15:29 Test Item Value Reference Range Interpretation Comments UA Mucus (test code = UA Mucus) Rare /LPF [facility] AND [id number] 02:15:29 Test Item Value Reference Range Interpretation Comments UA Sq Epi (test code = UA Sq Epi) Rare /LPF [facility] AND [id number] 02:15:29 Test Item Value Reference Range Interpretation Comments UA RBC (test code = 0-2 /HPF See_Comment [Automa stuart message] The UA RBC) system which ge nerated this result tra nsmitted reference range : <=2. The reference range was not used to interpr et this result as cherry l/abnormal. [facility]villeannJE[facility] AND [id number] 02:15:29 Test Item Value Reference Range Interpretation Comments UA Fine Gran (test code = UA Fine 0-2 /LPF Gran) [facility] AND [id number] 02:15:29 Test Item Value Reference Range Interpretation Comments UA Color (test code = Yellow *NA*(06/08/14 UA Color) 9:15 PM) [facility] AND [id number] 02:15:29 Test Item Value Reference Range Interpretation Comments UA Leuk Est (test Negative (06/08/14 9:15 code = UA Leuk Est) PM) [facility] AND [id number] 02:15:29 Test Item Value Reference Range Interpretation Comments UA Nitrite (test code Negative (06/08/14 9:15 = UA Nitrite) PM) [facility] AND [id number] 02:15:29 Test Item Value Reference Range Interpretation Comments UA Urobilinogen (test code = UA 0.2 0.1-1.0 Urobilinogen) [facility] AND [id number] 02:15:29 Test Item Value Reference Range Interpretation Comments UA Glucose (test code Negative (06/08/14 9:15 = UA Glucose) PM) [facility] AND [id number] 02:15:29 Test Item Value Reference Range Interpretation Comments UA Protein (test code = Trace *ABN*(06/08/14 UA Protein) 9:15 PM) [facility] AND [id number] 02:15:29 Test Item Value Reference Range Interpretation Comments UA pH (test code = UA pH) 6.0 1 5.0-8.0 [facility] AND [id number] 02:15:29 Test Item Value Reference Range Interpretation Comments UA Spec Grav (test >=1.030 *ABN*(06/08/14 code = UA Spec Grav) 9:15 PM) [facility] AND [id number] 02:15:29 Test Item Value Reference Range Interpretation Comments UA Ketones (test code Negative *NA*(06/08/14 = UA Ketones) 9:15 PM) [facility] AND [id number] 02:15:29 Test Item Value Reference Range Interpretation Comments UA Bili (test code = Negative *NA*(06/08/14 UA Bili) 9:15 PM) [facility] AND [id number] 02:15:29 Test Item Value Reference Range Interpretation Comments UA Turbidity (test code = Clear (06/08/14 9:15 UA Turbidity) PM) [facility] AND [id number] 02:15:29 Test Item Value Reference Range Interpretation Comments UA Blood (test code = Negative (06/08/14 9:15 UA Blood) PM) [facility] AND [id number] 02:15:29 Test Item Value Reference Range Interpretation Comments UA WBC (test code = UA WBC) 0-2 /HPF [facility] AND [id number] 02:15:29 Test Item Value Reference Range Interpretation Comments UA Mucus (test code = UA Mucus) Rare /LPF [facility] AND [id number] 02:15:29 Test Item Value Reference Range Interpretation Comments UA Sq Epi (test code = UA Sq Epi) Rare /LPF [facility] AND [id number] 02:15:29 Test Item Value Reference Range Interpretation Comments UA RBC (test code = 0-2 /HPF See_Comment [Automa stuart message] The UA RBC) system which ge nerated this result tra nsmitted reference range : <=2. The reference range was not used to interpr et this result as cherry l/abnormal. [facility] AND [id number] 02:15:29 Test Item Value Reference Range Interpretation Comments UA Fine Gran (test code = UA Fine 0-2 /LPF Gran) [facility] AND [id number] 02:15:29 Test Item Value Reference Range Interpretation Comments UA Color (test code = Yellow *NA*(06/08/14 UA Color) 9:15 PM) [facility] AND [id number] 02:15:29 Test Item Value Reference Range Interpretation Comments UA Leuk Est (test Negative (06/08/14 9:15 code = UA Leuk Est) PM) [facility] AND [id number] 02:15:29 Test Item Value Reference Range Interpretation Comments UA Nitrite (test code Negative (06/08/14 9:15 = UA Nitrite) PM) [facility] AND [id number] 02:15:29 Test Item Value Reference Range Interpretation Comments UA Urobilinogen (test code = UA 0.2 0.1-1.0 Urobilinogen) [facility] AND [id number] 02:15:29 Test Item Value Reference Range Interpretation Comments UA Glucose (test code Negative (06/08/14 9:15 = UA Glucose) PM) [facility] AND [id number] 02:15:29 Test Item Value Reference Range Interpretation Comments UA Protein (test code = Trace *ABN*(06/08/14 UA Protein) 9:15 PM) [facility] AND [id number] 02:15:29 Test Item Value Reference Range Interpretation Comments UA pH (test code = UA pH) 6.0 1 5.0-8.0 [facility] AND [id number] 02:15:29 Test Item Value Reference Range Interpretation Comments UA Spec Grav (test >=1.030 *ABN*(06/08/14 code = UA Spec Grav) 9:15 PM) [facility] AND [id number] 02:15:29 Test Item Value Reference Range Interpretation Comments UA Ketones (test code Negative *NA*(06/08/14 = UA Ketones) 9:15 PM) [facility] AND [id number] 02:15:29 Test Item Value Reference Range Interpretation Comments UA Bili (test code = Negative *NA*(06/08/14 UA Bili) 9:15 PM) [facility] AND [id number] 02:15:29 Test Item Value Reference Range Interpretation Comments UA Turbidity (test code = Clear (06/08/14 9:15 UA Turbidity) PM) [facility] AND [id number] 02:15:29 Test Item Value Reference Range Interpretation Comments UA Blood (test code = Negative (06/08/14 9:15 UA Blood) PM) [facility] AND [id number] 02:15:29 Test Item Value Reference Range Interpretation Comments UA WBC (test code = UA WBC) 0-2 /HPF [facility] AND [id number] 02:15:29 Test Item Value Reference Range Interpretation Comments UA Mucus (test code = UA Mucus) Rare /LPF [facility] AND [id number] 02:15:29 Test Item Value Reference Range Interpretation Comments UA Sq Epi (test code = UA Sq Epi) Rare /LPF [facility] AND [id number] 02:15:29 Test Item Value Reference Range Interpretation Comments UA RBC (test code = 0-2 /HPF See_Comment [Automa stuart message] The UA RBC) system which ge nerated this result tra nsmitted reference range : <=2. The reference range was not used to interpr et this result as cherry l/abnormal. [facility] [id number] 02:15:29 Test Item Value Reference Range Interpretation Comments UA Fine Gran (test code = UA Fine 0-2 /LPF Gran) [facility] [id number] 01:45:14 Test Item Value Reference Range Interpretation Comments CK MB (test code = CK MB) 1.3 0.5-3.6 [facility] [id number] 01:45:14 Test Item Value Reference Range Interpretation Comments Total CK (test code = Total CK) 93 191 [facility] [id number] 01:45:14 Test Item Value Reference Range Interpretation Comments Troponin-I (test code no gt See_Comment [Auto mated message] The = Troponin-I) system which g enerated this result transmit stuart reference range : <=0.40. The reference r jose alfredo was not used to interpr et this result as cherry l/abnormal. [facility] [id number] 01:45:14 Test Item Value Reference Range Interpretation Comments BNP (test code = BNP) 18 [facility] [id number] 01:45:14 Test Item Value Reference Range Interpretation Comments CK MB Index (test 1.4 See_Comment [Automate d message] The code = CK MB Index) system w [facility] generated this result transmit stuart reference range : <=2.5. The reference range was not used to interpr et this result as cherry l/abnormal. [facility]annCHEM [id number] 01:45:14 Test Item Value Reference Range Interpretation Comments eGFR (test code = eGFR) 68 [facility]annCARDIAC [id number] 01:45:14 Test Item Value Reference Range Interpretation Comments CK MB (test code = CK MB) 1.3 0.5-3.6 [facility] [id number] 01:45:14 Test Item Value Reference Range Interpretation Comments Total CK (test code = Total CK) 93 12-191 [facility] HermannCARDIAC [id number] 01:45:14 Test Item Value Reference Range Interpretation Comments Troponin-I (test code no gt See_Comment [Auto mated message] The = Troponin-I) system which g enerated this result transmit stuart reference range : <=0.40. The reference r jose alfredo was not used to interpr et this result as cherry l/abnormal. [employer]2014-10-09 01:45:14 Test Item Value Reference Range Interpretation Comments BNP (test code = BNP) 18 [facility] [employer]2014-10-09 01:45:14 Test Item Value Reference Range Interpretation Comments CK MB Index (test 1.4 See_Comment [Automate d message] The code = CK MB Index) system w [employer] generated this result transmit stuart reference range : <=2.5. The reference range was not used to interpr et this result as cherry l/abnormal. [employer]2014-10-09 01:45:14 Test Item Value Reference Range Interpretation Comments eGFR (test code = eGFR) 68 [facility] [employer]2014-10-09 01:45:14 Test Item Value Reference Range Interpretation Comments CK MB (test code = CK MB) 1.3 0.5-3.6 [facility] [employer]2014-10-09 01:45:14 Test Item Value Reference Range Interpretation Comments Total CK (test code = Total CK) 93 12-191 [facility] [employer]2014-10-09 01:45:14 Test Item Value Reference Range Interpretation Comments Troponin-I (test code no gt See_Comment [Auto mated message] The = Troponin-I) system which g enerated this result transmit stuart reference range : <=0.40. The reference r jose alfredo was not used to interpr et this result as cherry l/abnormal. [facility] [employer]2014-10-09 01:45:14 Test Item Value Reference Range Interpretation Comments BNP (test code = BNP) 18 [facility] [employer]2014-10-09 01:45:14 Test Item Value Reference Range Interpretation Comments CK MB Index (test 1.4 See_Comment [Automate d message] The code = CK MB Index) system w [employer] generated this result transmit stuart reference range : <=2.5. The reference range was not used to interpr et this result as cherry l/abnormal. [employer]2014-10-09 01:45:14 Test Item Value Reference Range Interpretation Comments eGFR (test code = eGFR) 68 [facility] [id number] 01:25:19 Test Item Value Reference Range Interpretation Comments INR (test code = INR) 0.90 0.85-1.17 [facility] CypressMrhccneYWNCZHOAGO5789-16-38 01:25:19 Test Item Value Reference Range Interpretation Comments PTT (test code = PTT) 28.6 s 22.9-35.8 [facility] CypressIxidglxPZYSDCGXRQ7447-81-02 01:25:19 Test Item Value Reference Range Interpretation Comments PT (test code = PT) 12.1 s 12.0-14.7 [facility] CypressTfcpycuNCMTJEWMCC6977-76-19 01:25:19 Test Item Value Reference Range Interpretation Comments INR (test code = INR) 0.90 0.85-1.17 [facility] [id number] 01:25:19 Test Item Value Reference Range Interpretation Comments PTT (test code = PTT) 28.6 s 22.9-35.8 [facility] CypressVdkqecvLRXUVJQRVJ0181-09-54 01:25:19 Test Item Value Reference Range Interpretation Comments PT (test code = PT) 12.1 s 12.0-14.7 [facility] CypressTlszkkhKMJDHPWVGB2556-00-28 01:25:19 Test Item Value Reference Range Interpretation Comments INR (test code = INR) 0.90 0.85-1.17 [facility] [id number] 01:25:19 Test Item Value Reference Range Interpretation Comments PTT (test code = PTT) 28.6 s 22.9-35.8 [facility] CypressXnytfirCTVQUSDRTI6165-00-14 01:25:19 Test Item Value Reference Range Interpretation Comments PT (test code = PT) 12.1 s 12.0-14.7 [facility]2014-10-09 01:25:00 Test Item Value Reference Range Interpretation Comments ALT (test code = ALT) 29 See_Comment [Auto mated message] The system which ge nerated this result transmit stuart reference range : <=65. The reference range was not used to interpr et this result as cherry l/abnormal. [facility]2014-10-09 01:25:00 Test Item Value Reference Range Interpretation Comments A/G Ratio (test code = A/G Ratio) 0.9 0.7-1.6 [place] 189364-10-09 01:25:00 Test Item Value Reference Range Interpretation Comments Alk Phos (test code = Alk Phos) 53 39-136 [facility]2014-10-09 01:25:00 Test Item Value Reference Range Interpretation Comments AST (test code = AST) 24 See_Comment [Auto mated message] The system which ge nerated this result transmit stuart reference range : <=37. The reference range was not used to interpr et this result as cherry l/abnormal. [facility]2014-10-09 01:25:00 Test Item Value Reference Range Interpretation Comments Bili Total (test code = Bili Total) 0.5 0.2-1.3 [facility]2014-10-09 01:25:00 Test Item Value Reference Range Interpretation Comments B/C Ratio (test code = B/C Ratio) 18 6-25 [facility]2014-10-09 01:25:00 Test Item Value Reference Range Interpretation Comments Globulin (test code = Globulin) 4.0 2.0-4.0 [facility]2014-10-09 01:25:00 Test Item Value Reference Range Interpretation Comments Total Protein (test code = Total 7.5 6.4-8.4 Protein) [facility]2014-10-09 01:25:00 Test Item Value Reference Range Interpretation Comments Albumin Lvl (test code = Albumin Lvl) 3.5 3.5-5.0 [facility]2014-10-09 01:25:00 Test Item Value Reference Range Interpretation Comments Potassium Lvl (test code = Potassium 4.5 3.5-5.1 Lvl) [facility]2014-10-09 01:25:00 Test Item Value Reference Range Interpretation Comments CO2 (test code = CO2) 41 24-32 [facility]2014-10-09 01:25:00 Test Item Value Reference Range Interpretation Comments Chloride Lvl (test code = Chloride Lvl) 96 95-109 [facility]2014-10-09 01:25:00 Test Item Value Reference Range Interpretation Comments Calcium Lvl (test code = Calcium Lvl) 9.2 8.5-10.5 [facility]2014-10-09 01:25:00 Test Item Value Reference Range Interpretation Comments AGAP (test code = AGAP) 6.5 10.0-20.0 [facility]2014-10-09 01:25:00 Test Item Value Reference Range Interpretation Comments Sodium Lvl (test code = Sodium Lvl) 139 135-145 [facility]2014-10-09 01:25:00 Test Item Value Reference Range Interpretation Comments Creatinine Lvl (test code = Creatinine 1.1 0.5-1.4 Lvl) [facility]2014-10-09 01:25:00 Test Item Value Reference Range Interpretation Comments BUN (test code = BUN) 20 7-22 [facility]2014-10-09 01:25:00 Test Item Value Reference Range Interpretation Comments Glucose Lvl (test code = Glucose Lvl) 199 70-99 [facility] CypressStoobhnSAXBYJZCGW3574-35-38 01:25:00 Test Item Value Reference Range Interpretation Comments MCV (test code = MCV) 90.8 80.0-94.0 [facility] CypressElihlzdYDGPQILMLM1899-14-82 01:25:00 Test Item Value Reference Range Interpretation Comments Hct (test code = Hct) 45.4 42.0-54.0 [facility] CypressIzykqbqGRDUDDPKKV4303-43-82 01:25:00 Test Item Value Reference Range Interpretation Comments MCH (test code = MCH) 31.6 pg 27.0-31.0 [facility] CypressXgdtizkCTGRDAETIX0757-50-28 01:25:00 Test Item Value Reference Range Interpretation Comments RBC (test code = RBC) 5.00 4.70-6.10 [facility] CypressCztexxpGQIYNPDQBB7763-94-52 01:25:00 Test Item Value Reference Range Interpretation Comments Hgb (test code = Hgb) 15.8 14.0-18.0 [facility] CypressRpsrfdeOGMDWCTMBK6234-03-45 01:25:00 Test Item Value Reference Range Interpretation Comments WBC (test code = WBC) 8.5 3.7-10.4 [facility] CypressWbeacydDBCCXYFZJJ0035-31-96 01:25:00 Test Item Value Reference Range Interpretation Comments MCHC (test code = MCHC) 34.8 32.0-36.0 [facility] CypressWdspyjtWPXPYQSWOQ0693-81-69 01:25:00 Test Item Value Reference Range Interpretation Comments Platelet (test code = Platelet) 186 133-450 [facility] CypressWwlafbaGEULOAYVXI8409-62-68 01:25:00 Test Item Value Reference Range Interpretation Comments RDW (test code = RDW) 14.1 11.5-14.5 [facility] CypressLogedspYYDGOBDNKO6624-56-92 01:25:00 Test Item Value Reference Range Interpretation Comments MPV (test code = MPV) 9.6 7.4-10.4 [facility] CypressOykdcmlUNRUOMBETJ8562-70-33 01:25:00 Test Item Value Reference Range Interpretation Comments Eosinophils # (test code 0.3 See_Comment [A utomated message] The = Eosinophils #) system whic h generated this result tra nsmitted reference range : <=0.5. The reference r jose alfredo was not used to int erpret this result as normal/abnormal . [facility] CypressWeskdkuSWYLXKNZAW6607-09-11 01:25:00 Test Item Value Reference Range Interpretation Comments Basophils # (test code 0.1 See_Comment [Aut omated message] The = Basophils #) system which generated this result tra nsmitted reference range : <=0.2. The reference r jose alfredo was not used to int erpret this result as normal/abnormal . [facility] CypressRoqgfcpUXSVJQEHAE2245-05-63 01:25:00 Test Item Value Reference Range Interpretation Comments Monocytes # (test code 1.1 See_Comment [Aut omated message] The = Monocytes #) system which generated this result tra nsmitted reference range : <=0.8. The reference r jose alfredo was not used to int erpret this result as normal/abnormal . [facility] CypressIpszslyQQFSFOJULK3491-11-46 01:25:00 Test Item Value Reference Range Interpretation Comments Segs (test code = Segs) 62.9 45.0-75.0 [facility] CypressJqhrwuoIRASDTKVNH1277-15-57 01:25:00 Test Item Value Reference Range Interpretation Comments Lymphocytes # (test code = Lymphocytes 1.7 1.0-5.5 #) [facility] CypressHdmaxadQSDRCATRCW3805-16-33 01:25:00 Test Item Value Reference Range Interpretation Comments Eosinophils (test code = 3.0 See_Comment [A utomated message] The Eosinophils) system which ge nerated this result tra nsmitted reference range : <=4.0. The reference r jose alfredo was not used to int erpret this result as normal/abnormal . [facility]ressKvgmugiGTWDGOUYKB5254-58-15 01:25:00 Test Item Value Reference Range Interpretation Comments Basophils (test code = 1.3 See_Comment [Aut omated message] The Basophils) system which ge nerated this result tra nsmitted reference range : <=1.0. The reference r jose alfredo was not used to int erpret this result as normal/abnormal . [facility]ressAbzkwalFADVJAHJUJ8784-36-67 01:25:00 Test Item Value Reference Range Interpretation Comments Monocytes (test code = Monocytes) 13.0 2.0-12.0 [facility] CypressBwxdjggXSKERGKUFR4119-86-03 01:25:00 Test Item Value Reference Range Interpretation Comments Lymphocytes (test code = Lymphocytes) 19.8 20.0-40.0 [facility]ressAopeammKIPTIVCRRG1528-82-72 01:25:00 Test Item Value Reference Range Interpretation Comments Segs-Bands # (test code = Segs-Bands #) 5.3 1.5-8.1 [facility]2014-10-09 01:25:00 Test Item Value Reference Range Interpretation Comments ALT (test code = ALT) 29 See_Comment [Auto mated message] The system which ge nerated this result transmit stuart reference range : <=65. The reference range was not used to interpr et this result as cherry l/abnormal. [facility]2014-10-09 01:25:00 Test Item Value Reference Range Interpretation Comments A/G Ratio (test code = A/G Ratio) 0.9 0.7-1.6 [facility]2014-10-09 01:25:00 Test Item Value Reference Range Interpretation Comments Alk Phos (test code = Alk Phos) 53 39-136 [facility]2014-10-09 01:25:00 Test Item Value Reference Range Interpretation Comments AST (test code = AST) 24 See_Comment [Auto mated message] The system which ge nerated this result transmit stuart reference range : <=37. The reference range was not used to interpr et this result as cherry l/abnormal. [facility]2014-10-09 01:25:00 Test Item Value Reference Range Interpretation Comments Bili Total (test code = Bili Total) 0.5 0.2-1.3 [facility]2014-10-09 01:25:00 Test Item Value Reference Range Interpretation Comments B/C Ratio (test code = B/C Ratio) 18 6-25 [facility]2014-10-09 01:25:00 Test Item Value Reference Range Interpretation Comments Globulin (test code = Globulin) 4.0 2.0-4.0 [facility]2014-10-09 01:25:00 Test Item Value Reference Range Interpretation Comments Total Protein (test code = Total 7.5 6.4-8.4 Protein) [facility]2014-10-09 01:25:00 Test Item Value Reference Range Interpretation Comments Albumin Lvl (test code = Albumin Lvl) 3.5 3.5-5.0 [facility]2014-10-09 01:25:00 Test Item Value Reference Range Interpretation Comments Potassium Lvl (test code = Potassium 4.5 3.5-5.1 Lvl) [facility]2014-10-09 01:25:00 Test Item Value Reference Range Interpretation Comments CO2 (test code = CO2) 41 24-32 [facility]2014-10-09 01:25:00 Test Item Value Reference Range Interpretation Comments Chloride Lvl (test code = Chloride Lvl) 96 95-109 [facility]2014-10-09 01:25:00 Test Item Value Reference Range Interpretation Comments Calcium Lvl (test code = Calcium Lvl) 9.2 8.5-10.5 [facility]2014-10-09 01:25:00 Test Item Value Reference Range Interpretation Comments AGAP (test code = AGAP) 6.5 10.0-20.0 [facility]2014-10-09 01:25:00 Test Item Value Reference Range Interpretation Comments Sodium Lvl (test code = Sodium Lvl) 139 135-145 [facility]2014-10-09 01:25:00 Test Item Value Reference Range Interpretation Comments Creatinine Lvl (test code = Creatinine 1.1 0.5-1.4 Lvl) [facility]2014-10-09 01:25:00 Test Item Value Reference Range Interpretation Comments BUN (test code = BUN) 20 7-22 [facility]2014-10-09 01:25:00 Test Item Value Reference Range Interpretation Comments Glucose Lvl (test code = Glucose Lvl) 199 70-99 [facility]ressMvuzjdlCADBGIYUTI3753-39-11 01:25:00 Test Item Value Reference Range Interpretation Comments MCV (test code = MCV) 90.8 80.0-94.0 [facility] CypressBtexvnsPPUGBGQMPF4236-71-30 01:25:00 Test Item Value Reference Range Interpretation Comments Hct (test code = Hct) 45.4 42.0-54.0 [facility] CypressWqihehwSAVICJZFBD7789-87-79 01:25:00 Test Item Value Reference Range Interpretation Comments MCH (test code = MCH) 31.6 pg 27.0-31.0 [facility] CypressUpelrzgTEIPRPPTUI3261-40-25 01:25:00 Test Item Value Reference Range Interpretation Comments RBC (test code = RBC) 5.00 4.70-6.10 [facility] CypressJlbhuqtAUGLSPAAXV4727-70-11 01:25:00 Test Item Value Reference Range Interpretation Comments Hgb (test code = Hgb) 15.8 14.0-18.0 [facility] CypressCrzunsvLPSWDYDGBF9506-75-74 01:25:00 Test Item Value Reference Range Interpretation Comments WBC (test code = WBC) 8.5 3.7-10.4 [facility] CypressLqibkieRTCUXQDKPL2647-17-63 01:25:00 Test Item Value Reference Range Interpretation Comments MCHC (test code = MCHC) 34.8 32.0-36.0 [facility]ressSbnrbjwQGKGXVPNKI2612-54-82 01:25:00 Test Item Value Reference Range Interpretation Comments Platelet (test code = Platelet) 186 133-450 [facility] CypressBadusyrYSPAAVBDNX3416-53-66 01:25:00 Test Item Value Reference Range Interpretation Comments RDW (test code = RDW) 14.1 11.5-14.5 [facility] CypressUwvevosWPLVPVEJOW5432-72-93 01:25:00 Test Item Value Reference Range Interpretation Comments MPV (test code = MPV) 9.6 7.4-10.4 [facility] CypressWrpyxabUUKTZLNNHK6575-92-38 01:25:00 Test Item Value Reference Range Interpretation Comments Eosinophils # (test code 0.3 See_Comment [A utomated message] The = Eosinophils #) system whic h generated this result tra nsmitted reference range : <=0.5. The reference r jose alfredo was not used to int erpret this result as normal/abnormal . [facility]ressOohtoslKIQQACKQRP1521-70-06 01:25:00 Test Item Value Reference Range Interpretation Comments Basophils # (test code 0.1 See_Comment [Aut omated message] The = Basophils #) system which generated this result tra nsmitted reference range : <=0.2. The reference r jose alfredo was not used to int erpret this result as normal/abnormal . [facility]ressKgwsyglQYSIITJHHI4995-20-04 01:25:00 Test Item Value Reference Range Interpretation Comments Monocytes # (test code 1.1 See_Comment [Aut omated message] The = Monocytes #) system which generated this result tra nsmitted reference range : <=0.8. The reference r jose alfredo was not used to int erpret this result as normal/abnormal . [facility]ressLvyfzouYDYZQSXAKR0913-38-39 01:25:00 Test Item Value Reference Range Interpretation Comments Segs (test code = Segs) 62.9 45.0-75.0 [facility] CypressPyvcjjoIEZAGHHKBF5973-53-85 01:25:00 Test Item Value Reference Range Interpretation Comments Lymphocytes # (test code = Lymphocytes 1.7 1.0-5.5 #) [facility] CypressDdqxaskQYNNJQPQWF4615-80-50 01:25:00 Test Item Value Reference Range Interpretation Comments Eosinophils (test code = 3.0 See_Comment [A utomated message] The Eosinophils) system which ge nerated this result tra nsmitted reference range : <=4.0. The reference r jose alfredo was not used to int erpret this result as normal/abnormal . [facility] CypressHnrbfxgEUWZQPQDKR9148-78-26 01:25:00 Test Item Value Reference Range Interpretation Comments Basophils (test code = 1.3 See_Comment [Aut omated message] The Basophils) system which ge nerated this result tra nsmitted reference range : <=1.0. The reference r jose alfredo was not used to int erpret this result as normal/abnormal . [facility] CypressFpvgokiXOKJOQLOTI6939-47-09 01:25:00 Test Item Value Reference Range Interpretation Comments Monocytes (test code = Monocytes) 13.0 2.0-12.0 [facility] CypressExnldzxGSDRYBBICP5892-41-77 01:25:00 Test Item Value Reference Range Interpretation Comments Lymphocytes (test code = Lymphocytes) 19.8 20.0-40.0 [facility] CypressMiqtrpkEWFTWFMRWN2538-61-86 01:25:00 Test Item Value Reference Range Interpretation Comments Segs-Bands # (test code = Segs-Bands #) 5.3 1.5-8.1 [facility]2014-10-09 01:25:00 Test Item Value Reference Range Interpretation Comments ALT (test code = ALT) 29 See_Comment [Auto mated message] The system which ge nerated this result transmit stuart reference range : <=65. The reference range was not used to interpr et this result as cherry l/abnormal. [facility]2014-10-09 01:25:00 Test Item Value Reference Range Interpretation Comments A/G Ratio (test code = A/G Ratio) 0.9 0.7-1.6 [facility]2014-10-09 01:25:00 Test Item Value Reference Range Interpretation Comments Alk Phos (test code = Alk Phos) 53 39-136 [facility]2014-10-09 01:25:00 Test Item Value Reference Range Interpretation Comments AST (test code = AST) 24 See_Comment [Auto mated message] The system which ge nerated this result transmit stuart reference range : <=37. The reference range was not used to interpr et this result as cherry l/abnormal. [facility]2014-10-09 01:25:00 Test Item Value Reference Range Interpretation Comments Bili Total (test code = Bili Total) 0.5 0.2-1.3 [facility]2014-10-09 01:25:00 Test Item Value Reference Range Interpretation Comments B/C Ratio (test code = B/C Ratio) 18 6-25 [facility]2014-10-09 01:25:00 Test Item Value Reference Range Interpretation Comments Globulin (test code = Globulin) 4.0 2.0-4.0 [facility]2014-10-09 01:25:00 Test Item Value Reference Range Interpretation Comments Total Protein (test code = Total 7.5 6.4-8.4 Protein) [facility]2014-10-09 01:25:00 Test Item Value Reference Range Interpretation Comments Albumin Lvl (test code = Albumin Lvl) 3.5 3.5-5.0 [facility]2014-10-09 01:25:00 Test Item Value Reference Range Interpretation Comments Potassium Lvl (test code = Potassium 4.5 3.5-5.1 Lvl) [facility]2014-10-09 01:25:00 Test Item Value Reference Range Interpretation Comments CO2 (test code = CO2) 41 24-32 [facility]2014-10-09 01:25:00 Test Item Value Reference Range Interpretation Comments Chloride Lvl (test code = Chloride Lvl) 96 95-109 [facility]2014-10-09 01:25:00 Test Item Value Reference Range Interpretation Comments Calcium Lvl (test code = Calcium Lvl) 9.2 8.5-10.5 [facility]2014-10-09 01:25:00 Test Item Value Reference Range Interpretation Comments AGAP (test code = AGAP) 6.5 10.0-20.0 [facility]2014-10-09 01:25:00 Test Item Value Reference Range Interpretation Comments Sodium Lvl (test code = Sodium Lvl) 139 135-145 [facility]2014-10-09 01:25:00 Test Item Value Reference Range Interpretation Comments Creatinine Lvl (test code = Creatinine 1.1 0.5-1.4 Lvl) [facility]2014-10-09 01:25:00 Test Item Value Reference Range Interpretation Comments BUN (test code = BUN) 20 7-22 [facility]2014-10-09 01:25:00 Test Item Value Reference Range Interpretation Comments Glucose Lvl (test code = Glucose Lvl) 199 70-99 [facility] CypressHoxpnlpXDAXWKQCWC5438-39-76 01:25:00 Test Item Value Reference Range Interpretation Comments MCV (test code = MCV) 90.8 80.0-94.0 [facility] CypressNexsjxtFPFKSKTIFV4373-58-85 01:25:00 Test Item Value Reference Range Interpretation Comments Hct (test code = Hct) 45.4 42.0-54.0 [facility] CypressMihvcuqQXOIEIDGAX3515-52-65 01:25:00 Test Item Value Reference Range Interpretation Comments MCH (test code = MCH) 31.6 pg 27.0-31.0 [facility] CypressTpevnfyYDWTAQWBQX9119-09-28 01:25:00 Test Item Value Reference Range Interpretation Comments RBC (test code = RBC) 5.00 4.70-6.10 [facility] CypressPguqeyeCRBTBPBXDI2280-75-30 01:25:00 Test Item Value Reference Range Interpretation Comments Hgb (test code = Hgb) 15.8 14.0-18.0 [facility]ressXfhhhveZXPXPVEBOI0073-12-67 01:25:00 Test Item Value Reference Range Interpretation Comments WBC (test code = WBC) 8.5 3.7-10.4 [facility]ressOphfvseCFWJQAYHXR5102-03-79 01:25:00 Test Item Value Reference Range Interpretation Comments MCHC (test code = MCHC) 34.8 32.0-36.0 [facility] CypressAtsbcmoEPQCVHWDZX4681-76-99 01:25:00 Test Item Value Reference Range Interpretation Comments Platelet (test code = Platelet) 186 133-450 [facility] CypressLxbavwyTPBPMXXJJH7087-98-40 01:25:00 Test Item Value Reference Range Interpretation Comments RDW (test code = RDW) 14.1 11.5-14.5 [facility]ressXdtsrhmDFEPOBEKGK4954-17-94 01:25:00 Test Item Value Reference Range Interpretation Comments MPV (test code = MPV) 9.6 7.4-10.4 [facility] CypressKeikldxWYJXKHAZOZ8438-96-80 01:25:00 Test Item Value Reference Range Interpretation Comments Eosinophils # (test code 0.3 See_Comment [A utomated message] The = Eosinophils #) system whic h generated this result tra nsmitted reference range : <=0.5. The reference r jose alfredo was not used to int erpret this result as normal/abnormal . [facility] CypressKcmjihsYFCSVHQVIV2767-00-60 01:25:00 Test Item Value Reference Range Interpretation Comments Basophils # (test code 0.1 See_Comment [Aut omated message] The = Basophils #) system which generated this result tra nsmitted reference range : <=0.2. The reference r jose alfredo was not used to int erpret this result as normal/abnormal . [facility]ressIlkphxbZZNQOQIWVR4446-91-78 01:25:00 Test Item Value Reference Range Interpretation Comments Monocytes # (test code 1.1 See_Comment [Aut omated message] The = Monocytes #) system which generated this result tra nsmitted reference range : <=0.8. The reference r jose alfredo was not used to int erpret this result as normal/abnormal . [facility] CypressOpyhnfqZMKKTKLPZD1454-98-49 01:25:00 Test Item Value Reference Range Interpretation Comments Segs (test code = Segs) 62.9 45.0-75.0 [facility]ressSxmjvxoRUEOPPVBJO6777-69-27 01:25:00 Test Item Value Reference Range Interpretation Comments Lymphocytes # (test code = Lymphocytes 1.7 1.0-5.5 #) [facility] CypressSwhatnsXDXEJQPSYG5751-31-67 01:25:00 Test Item Value Reference Range Interpretation Comments Eosinophils (test code = 3.0 See_Comment [A utomated message] The Eosinophils) system which ge nerated this result tra nsmitted reference range : <=4.0. The reference r jose alfredo was not used to int erpret this result as normal/abnormal . [facility] CypressDabnhblSPLFBLKGWQ0797-41-61 01:25:00 Test Item Value Reference Range Interpretation Comments Basophils (test code = 1.3 See_Comment [Aut omated message] The Basophils) system which ge nerated this result tra nsmitted reference range : <=1.0. The reference r jose alfredo was not used to int erpret this result as normal/abnormal . [facility] CypressTdawfhbMSAPWWFZZS1089-99-02 01:25:00 Test Item Value Reference Range Interpretation Comments Monocytes (test code = Monocytes) 13.0 2.0-12.0 [facility] CypressQekpmgwWHJFTSBAOP0551-49-48 01:25:00 Test Item Value Reference Range Interpretation Comments Lymphocytes (test code = Lymphocytes) 19.8 20.0-40.0 [facility] CypressQwddrejAGONXSKSWK9618-32-64 01:25:00 Test Item Value Reference Range Interpretation Comments Segs-Bands # (test code = Segs-Bands #) 5.3 1.5-8.1 [facility]
[2022-10-19 03:27] LABS: Absolute Lymphocytes (CBC) 0.8 K/uL (0.7-4.9); Hematocrit 29.2 % (39.6-49.0); Lymphocytes % 6.2 % (15.3-44.8); MCV 90.3 fL (80-100); RBC Red Blood Cell Count 3.23 M/uL (4.33-5.43)
[2022-10-19] MEDS ORDERED: HYDROCODONE/APAP 7.5/325 MG TAB ONE (03:36)
[2022-10-19 03:45] LABS: Magnesium 2.1 mg/dL (1.6-2.4); Troponin High Sensitivity 28.4 pg/mL (<58.9)
--- NOTE | 2022-10-19 04:08 | EDPHYS ---
Physician Documentation [facility] Name: Michael Duncan Age: 77 yrs Sex: Male : 1945 Arrival Date: 10/19/2022 Time: 02:05 Bed 15 Private MD: ED Physician Deborah Brito HPI: 10/19 02:30 This 77 yrs old Male presents to ER via EMS with complaints of hypoxia. sd2 02:30 77-year-old male presents via EMS with chief complaint of low O2 sat at the nursing md2 home. They report they were getting a reading of 82%. The patient reports he does not believe his oxygen machine was working appropriately as he is normally on 3 L nasal cannula all the time. EMS placed him on their oxygen and he has remained at 95% or higher since then. The patient states he feels much improved at this time and did have some shortness of breath initially that has since resolved. Denies fever, cough, CP, n/v/d.. Historical: - Allergies: 02:23 caffiene; ke1 02:23 Codeine; ke1 - PMHx: 02:23 Bipolar disorder; CHF; COPD; Dementia; Depression; Diabetes - NIDDM; High Cholesterol; ke1 Hyperlipidemia; Hypertension; - Immunization history:: Client reports receiving the 2nd dose of the Covid vaccine. - Social history:: Smoking status: Patient denies any tobacco usage or history of. ROS: 02:30 Constitutional: Negative for fever, chills, and weight loss, Eyes: Negative for injury, sd2 pain, redness, and discharge, Cardiovascular: Negative for chest pain, palpitations, and edema, Respiratory: Positive for shortness of breath, Negative for cough, wheezing. Abdomen/GI: Negative for abdominal pain, nausea, vomiting, diarrhea. MS/Extremity: Negative for injury and deformity, Skin: Negative for injury, rash, and discoloration, Neuro: Negative for headache, numbness and tingling. Exam: 02:30 Constitutional: This is a well developed, well nourished patient who is awake, alert, sd2 and in no acute distress. Head/Face: Normocephalic, atraumatic. Eyes: EOMI, normal conjunctiva bilaterally Chest/axilla: Normal chest wall appearance and motion. Nontender with no deformity. Cardiovascular: Regular rate and rhythm with a normal S1 and S2. No gallops, murmurs, or rubs. 2+ distal pulses. Respiratory: Lungs have equal breath sounds bilaterally, clear to auscultation and percussion. No rales, rhonchi or wheezes noted. No increased work of breathing, no retractions or nasal flaring. Abdomen/GI: Soft, non-tender, with normal bowel sounds. No guarding or rebound. No evidence of tenderness throughout. Skin: Warm, dry with normal turgor. Normal color with no rashes, no lesions, and no evidence of cellulitis. MS/ Extremity: Pulses equal, no cyanosis. Neurovascular intact. Full, normal range of motion. Splint in place to LLE Psych: Awake, alert, with orientation to person, place and time. Behavior, mood, and affect are within normal limits. 04:18 ECG was reviewed by the Attending Physician. Atrial fibrillation with rapid ventricular sd2 response, rate 108, no STEMI criteria, baseline artifact present Vital Signs: 02:00 BP 162 / 77; Pulse 101; Resp 17; Temp 98.9; Pulse Ox 99% on 3 lpm NC; Weight 117.48 kg; ke1 Height 6 ft. 1 in. (185.42 cm); Pain 0/10; 03:19 Pulse 102; Resp 17; Pulse Ox 97% on 3 lpm NC; Pain 0/10; ke1 03:44 BP 116 / 85; Pulse 100; Resp 23; Pulse Ox 100% on 3 lpm NC; Pain 6/10; ke1 04:20 Pain 0/10; ke1 05:11 Pulse Ox 99% on BiPAP; ke1 02:00 Body Mass Index 34.17 (117.48 kg, 185.42 cm) ke1 MDM: 02:08 Patient medically screened. sd2 02:30 Differential Diagnosis Differential diagnosis includes but is not limited to: ACS, sd2 DVT/PE, pneumothorax, dissection, musculoskeletal, anxiety, anemia, electrolyte abnormality, pneumonia, CHF, COPD among others. Data reviewed: vital signs, nurses notes, EMS record. 04:05 Consideration of Admission/Observation Patient was admitted/placed on observation. sd2 Management of patient was discussed with the following: Hospitalist: . I considered the following discharge prescriptions or medication management in the emergency department Medications were administered in the Emergency Department. See MAR. Independent interpretation of the following test(s) in the Emergency Department EKG: See my EKG interpretation above X-Ray: My interpretation is pulmonary vascular congestion. Historians other than the Patient: EMS: provides report. External Records Reviewed: Outpatient record: snf records. Care significantly affected by the following chronic conditions: Congestive Heart Failure, Chronic Obstructive Pulmonary Disease. 10/19 02:26 Order name: CBC with Diff; Complete Time: 03:46 10/19 02:26 Order name: BMP; Complete Time: 03:46 10/19 02:26 Order name: Magnesium; Complete Time: 03:46 10/19 02:26 Order name: Troponin High Sensitivity; Complete Time: 03:46 10/19 02:26 Order name: BNP; Complete Time: 03:46 10/19 04:05 Order name: COVID-19/FLU A+B la1 10/19 02:26 Order name: EKG - Nurse/Tech; Complete Time: 03:19 10/19 02:26 Order name: XRAY Chest (1 view) 10/19 02:27 Order name: CT Chest For PE Angio 10/19 04:10 Order name: ABG: OK for VBG la1 Administered Medications: 03:45 Drug: Van (HYDROcodone-acetaminophen) (7.5 mg-325 mg) 1 tabs Route: PO; ke1 04:20 Follow up: Pain 0/10 Adult; Response: Pain is decreased ke1 04:30 Drug: Lasix (furosemide) 80 mg Route: IVP; Site: left antecubital; ke1 05:58 Follow up: Response: No adverse reaction ke1 Disposition Summary: 10/19/22 04:07 Hospitalization Ordered Hospitalization Status: Inpatient Admission sd2 Provider: Paul Rey2 Location: Telemetry/MedSurg (Inpatient) sd2 Condition: Stable sd2 Problem: new sd2 Symptoms: are unchanged sd2 Bed/Room Type: Standard md2 Room Assignment: 217(10/19/22 05:18) cg Diagnosis - Acute and chronic respiratory failure with hypoxia sd2 - Acute pulmonary edema sd2 Forms: - Medication Reconciliation Form sd2 - SBAR form sd2 Signatures: Dispatcher [employer] Ashli Davis RN RN Margie Ortiz RN RN ke1 Deborah Brito MD MD sd2 Corrections: (The following items were deleted from the chart) 02:33 02:30 Constitutional: Negative for fever, chills, and weight loss, Eyes: Negative for sd2 injury, pain, redness, and discharge, Cardiovascular: Negative for chest pain, palpitations, and edema, Respiratory: Negative for shortness of breath, cough, wheezing. Abdomen/GI: Negative for abdominal pain, nausea, vomiting, diarrhea. MS/Extremity: Negative for injury and deformity, Skin: Negative for injury, rash, and discoloration, Neuro: Negative for headache, numbness and tingling. sd2 05:18 04:07 sd2 cg
--- NOTE | 2022-10-19 04:08 | ER ---
Nurse's Notes [facility] Name: Michael Duncan Age: 77 yrs Sex: Male : 1945 Arrival Date: 10/19/2022 Time: 02:05 Bed 15 Private MD: Diagnosis: Acute and chronic respiratory failure with hypoxia;Acute pulmonary edema Presentation: 10/19 02:00 Chief complaint: Patient states: From [facility] , staff reported low oxygen level of ke1 82%, on EMS arrival oxy of 96%. Coronavirus screen: Vaccine status: Patient reports receiving the 2nd dose of the covid vaccine. Ebola Screen: No symptoms or risks identified at this time. Initial Sepsis Screen: Does the patient meet any 2 criteria? HR > 90 bpm. No. Patient's initial sepsis screen is negative. Does the patient have a suspected source of infection? No. Patient's initial sepsis screen is negative. Risk Assessment: Do you want to hurt yourself or someone else? Patient reports no desire to harm self or others. Onset of symptoms was October 19, 2022 at 01:30. 02:00 Method Of Arrival: EMS ke1 02:00 Acuity: SHAZIA 3 ke1 Triage Assessment: 02:24 General: Appears in no apparent distress. Behavior is appropriate for age. Pain: Denies ke1 pain. Historical: - Allergies: 02:23 caffiene; ke1 02:23 Codeine; ke1 - PMHx: 02:23 Bipolar disorder; CHF; COPD; Dementia; Depression; Diabetes - NIDDM; High Cholesterol; ke1 Hyperlipidemia; Hypertension; - Immunization history:: Client reports receiving the 2nd dose of the Covid vaccine. - Social history:: Smoking status: Patient denies any tobacco usage or history of. Screenin:24 [facility] ED Fall Risk Assessment (Adult) History of falling in the last 3 months, ke1 including since admission Yes- physiologic fall (2 pts) Confusion or Disorientation No (0 pts) Intoxicated or Sedated No (0 pts) Impaired Gait Yes (1 pt) Mobility Assist Device Used No (0 pt) Altered Elimination No (0 pt) Score/Fall Risk Level 3 or more points = High Risk Oriented to surroundings, Maintained a safe environment, Educated pt \T\ family on fall prevention, incl call for assistance when getting out of bed, Hourly rounding (assess needs \T\ fall precautionary measures) done. Abuse screen: Denies threats or abuse. Nutritional screening: No deficits noted. Tuberculosis screening: No symptoms or risk factors identified. Assessment: 02:27 : 3-way catheter in place to gravity drainage. ke1 03:22 Musculoskeletal: L leg splint post surgery. ke1 03:30 Pain: Complains of pain in L leg Pain currently is 6 out of 10 on a pain scale. ke1 05:12 Respiratory: Patient placed on BiPAP: Inspiratory Pressure: 14 Expiratory (EPAP) ke1 Pressure: 6 FiO2%: 40 Respiratory Rate: 16. Vital Signs: 02:00 BP 162 / 77; Pulse 101; Resp 17; Temp 98.9; Pulse Ox 99% on 3 lpm NC; Weight 117.48 kg; ke1 Height 6 ft. 1 in. (185.42 cm); Pain 0/10; 03:19 Pulse 102; Resp 17; Pulse Ox 97% on 3 lpm NC; Pain 0/10; ke1 03:44 BP 116 / 85; Pulse 100; Resp 23; Pulse Ox 100% on 3 lpm NC; Pain 6/10; ke1 04:20 Pain 0/10; ke1 05:11 Pulse Ox 99% on BiPAP; ke1 02:00 Body Mass Index 34.17 (117.48 kg, 185.42 cm) ke1 ED Course: 02:05 Patient arrived in ED. ke1 02:06 Margie Wade RN is Primary Nurse. ke1 02:08 Deborah Brito MD is Attending Physician. sd2 02:23 Triage completed. ke1 02:25 Arm band placed on. ke1 02:25 Bed in low position. Call light in reach. Side rails up X 1. Side rails up X2. ke1 03:12 Missed attempt(s): 22 gauge forearm. Bleeding controlled, band aid applied, catheter oe tip intact. 03:18 Inserted saline lock: 22 gauge in left antecubital area, using aseptic technique. Blood oe collected. 04:06 Paul Rey MD is Hospitalizing Provider. sd2 04:15 XRAY Chest (1 view) In Process Unspecified. EDMS 05:56 No provider procedures requiring assistance completed. Patient admitted, IV remains in ke1 place. Administered Medications: 03:45 Drug: [place] (HYDROcodone-acetaminophen) (7.5 mg-325 mg) 1 tabs Route: PO; ke1 04:20 Follow up: Pain 0/10 Adult; Response: Pain is decreased ke1 04:30 Drug: Lasix (furosemide) 80 mg Route: IVP; Site: left antecubital; ke1 05:58 Follow up: Response: No adverse reaction ke1 Medication: 05:57 VIS not applicable for this client. ke1 Output: 05:56 Urine: 650ml (Merida); Total: 650ml. ke1 Outcome: 04:07 Decision to Hospitalize by Provider. sd2 05:57 Admitted to Med/surg accompanied by tech. ke1 05:57 Condition: good 05:57 Condition: good 05:57 Instructed on the need for admit. 05:59 Patient left the ED. ke1 Signatures: Dispatcher [employer] EDMS Ector Riley Kouassi, RN RN ke1 Deborah Brito MD MD sd2 Corrections: (The following items were deleted from the chart) 02:29 02:00 BP 162 / 77; Pulse 101bpm; Resp 17bpm; Pulse Ox 99%; Temp 98.9F; 117.48 kg; ke1 Height 6 ft. 1 in.; BMI: 34.1; Pain 0/10; ke1 05:57 02:27 : Merida in place to gravity drainage ke1 ke1
[2022-10-19] MEDS ORDERED: FUROSEMIDE 40 MG/4 ML VIAL ONE (04:23)
[2022-10-19 04:27] LABS: Arterial Blood Carboxyhemoglob 2.2 % (0-1.5); Blood Gas Oxyhemoglobin 92.5 % (94-97); Blood O2 Saturation 95.7 % (92-98.5)
--- NOTE | 2022-10-19 04:52 | P.HP ---
Certification for Inpatient Patient admitted to: Inpatient With expected LOS: >2 Midnights Patient will require the following post-hospital care: None Practitioner: I am a practitioner with admitting privileges, knowledge of patient current condition, hospital course, and medical plan of care. Services: Services provided to patient in accordance with Admission requirements found in Title 42 Section 412.3 of the Code of Federal Regulations <Boris Villatoro - Last Filed: 10/19/22 04:46> Patient History Date of Service: 10/19/22 Reason for admission: Hypercapnic respiratory failure, CHF exacerbation History of Present Illness: 77-year-old male with history of chronic systolic heart failure, COPD, CAD, A- fib on chronic anticoagulation, insulin-dependent diabetes, hypertension, dementia, hypothyroidism presents to the emergency department for hypoxia from long-term. Nursing staff reported that patient was hypoxic on his pain liters per nasal cannula that he usually wears saturating in the 80s. He was brought to the emergency department for evaluation. He did not appear to be hypoxic during his stay in the emergency department on 3 L nasal cannula but additional work-up revealed labs significant for bicarb of 39 and chemistry, sodium 130 chloride 87 creatinine 1.14 BNP 8343 white blood cell count 12.8 he moglobin 9.8 hematocrit 29.2 ABG demonstrated hypercapnic respiratory failure with pH of 7.21 PCO2 76.7. It is noted that patient recently presented to the emergency department after a fall on 10/05/2022 and was subsequently transferred to [facility] for a distal tib-fib fracture which he has since had surgery for, his left leg is immobilized in a splint. He has pain edema of the right lower extremity, pulmonary edema on chest x-ray. ED prior wishes to admit for further evaluation and management of acute on chronic hypercapnic respiratory failure, CHF exacerbation. CT PE protocol ordered now and pending. - Past Medical/Surgical History Diabetic: Yes -: Severe COPD, Pt has a BIPAP -: DM II -: HTN -: HLD -: Bipolar -: Systolic CHF -: CKD III (Dr. Dempsey) -: Heart stents Psychosocial/ Personal History: [facility] resident - Family History Mother -: Stroke Notes: Stroke - Social History Smoking Status: Former smoker Alcohol use: No CD- Drugs: No Caffeine use: Yes Place of Residence: Home <Boris Villatoro - Last Filed: 10/19/22 04:46> Date of Service: 10/19/22 <Paul Rey - Last Filed: 10/19/22 09:46> Allergies caffeine Allergy (Verified 09/16/22 23:26) Anaphylaxis codeine Allergy (Verified 09/16/22 23:26) Anaphylaxis Home Medications: RX: ALPRAZolam [Xanax*] 0.25 mg PO BID PRN 04/04/22 RX: Amiodarone HCl [Cordarone*] 200 mg PO DAILY 04/04/22 RX: Arformoterol Tartrate [Brovana] 1 amp NEB BID 04/04/22 RX: Atorvastatin Calcium [Lipitor*] 10 mg PO BEDTIME 04/04/22 RX: Buspirone HCl [Buspar*] 5 mg PO TID 04/04/22 RX: Divalproex [Depakote Sprinkle*] 625 mg PO BID 04/04/22 RX: Docusate [Colace Cap*] 200 mg PO BID 04/04/22 RX: Doxepin HCl [Sinequan*] 25 mg PO BEDTIME 04/04/22 RX: Furosemide [Lasix*] 40 mg PO BID 04/04/22 RX: Insulin Degludec [Tresiba] 55 unit SQ BEDTIME 04/04/22 RX: Levalbuterol HCl [Xopenex] 1 amp NEB BID 04/04/22 RX: Levothyroxine [Synthroid*] 0.1 mg PO DAILY 04/04/22 RX: Melatonin 15 mg PO BEDTIME 04/04/22 RX: Memantine HCl [Namenda*] 10 mg PO BID 04/04/22 RX: Polyethyl Gly 3350 [Glycolax*] 17 g PO DAILY 04/04/22 RX: Potassium Oral Tab [Klor-Con 10 mEq Tab*] 20 meq PO DAILY 04/04/22 RX: Rivaroxaban [Xarelto] 20 mg PO DAILY 04/04/22 RX: Sitagliptin Phosphate [Januvia] 100 mg PO DAILY 04/04/22 RX: Timolol 0.5% Opth [Timoptic 0.5% Opth*] 1 gtt EACH EYE BID 04/04/22 RX: Tramadol HCl [Ultram] 50 mg PO Q6HP PRN 04/04/22 RX: Venlafaxine HCl 75 mg PO BID 04/04/22 RX: acetaZOLAMIDE [Acetazolamide] 250 mg PO DAILY 04/04/22 RX: carvediloL [Coreg*] 12.5 mg PO BID 04/04/22 RX: cloNIDine HCL [Clonidine HCl] 0.1 mg PO BID 04/04/22 RX: guaiFENesin [Guaifenesin] 10 ml PO Q6HP PRN 04/04/22 RX: Albuterol Sulfate [Albuterol Sulfate 0.083% Neb Soln] 2.5 mg IH Q8HP PRN 09/16/22 RX: Spironolactone [Aldactone*] 25 mg PO DAILY 30 Days #30 tab 09/19/22 RX: Tamsulosin [Flomax*] 0.4 mg PO BEDTIME 30 Days #30 cap 09/19/22 RX: predniSONE [Prednisone*] 20 mg PO BID 4 Days #8 tab 09/19/22 Review of Systems 10-point ROS is otherwise unremarkable Respiratory: Cough, Shortness of Breath Cardiovascular: Edema <Boris Villatoro - Last Filed: 10/19/22 04:46> Physical Examination - Physical Exam General: Alert, In no apparent distress, Oriented x3 HEENT: Atraumatic, PERRLA, Mucous membr. moist/pink, EOMI, Sclerae nonicteric Neck: Supple, 2+ carotid pulse no bruit, No LAD, Without JVD or thyroid abnormality Respiratory: Diminished Cardiovascular: Regular rate/rhythm, Normal S1 S2, Edema Capillary refill: <2 Seconds Gastrointestinal: Normal bowel sounds, No tenderness Musculoskeletal: No tenderness, Other (Left lower extremity in splint) Integumentary: No rashes Neurological: Normal speech, Normal strength at 5/5 x4 extr, Normal tone, Normal affect - Studies Laboratory Data (last 24 hrs) 10/19/22 03:16: Sodium 130 L, Potassium 4.0, BUN 20 H, Creatinine 1.42 H, Glucose 88, Magnesium 2.1 10/19/22 03:16: WBC 12.80 H, Hgb 9.3 L, Hct 29.2 L, Plt Count 390 <Boris Villatoro - Last Filed: 10/19/22 04:46> - Studies Laboratory Data (last 24 hrs) 10/19/22 03:16: Sodium 130 L, Potassium 4.0, BUN 20 H, Creatinine 1.42 H, Glucose 88, Magnesium 2.1 10/19/22 03:16: WBC 12.80 H, Hgb 9.3 L, Hct 29.2 L, Plt Count 390 <Paul Rey - Last Filed: 10/19/22 09:46> Assessment and Plan - Plan Assessment: Acute on chronic hypercapnic respiratory failure secondary to acute CHF Acute on chronic systolic congestive heart failure COPD on home O2-3 L Atrial fibrillation on chronic anticoagulation Diabetes mellitus type 2insulin-dependent Hypertension Dimension, BPD Hypothyroidism Recent left tib-fib fracture Plan: Acute on chronic hypercapnic respiratory failure secondary to acute CHF ABG revealed pH 7.305, PCO2 76.7. Patient was placed on BiPAP in ED. Per chart review patient has BiPAP available at long-term will need to confirm with patient. Chest x-ray showed pulmonary edema and BNP elevated, given IV Lasix in ED. Will obtain echocardiogram, cardiology consult continue IV diuresis. Acute on chronic systolic congestive heart failure Continue as above. COPD on home O2-3 L Currently on BiPAP we will provide as needed nebulizer treatments, continue other home medications. Atrial fibrillation on chronic anticoagulation Continue amiodarone, Xarelto which patient reports he is still taking. Diabetes mellitus type 2insulin-dependent SSI, A1C ordered. We will need to confirm patient long-acting insulin dose and restart reduced dose as appropriate. Hypertension Dimension, BPD Hypothyroidism Continue home medications Recent left tib-fib fracture Noted, in splint, PMS intact. Surgery about 1.5 weeks ago at [facility] per pt. DVT PPX: Continue Xarelto Code status: Full Discharge Plan: Fpc Plan to discharge in: 48 Hours - Advance Directives Does patient have a Living Will: No Does patient have a Durable POA for Healthcare: No - Code Status/Comfort Care Code Status Assessed: Yes (Full code) Critical Care: No Time Spent Managing Pts Care (In Minutes): 70 <Boris Villatoro - Last Filed: 10/19/22 04:46> Physician Review: Patient Assessed, Agree with Above Assessment and Plan <Paul Rey - Last Filed: 10/19/22 09:46>
[2022-10-19 05:16] LABS: SARS-COV-2 RT PCR NEGATIVE (NEGATIVE)
[2022-10-19] MEDS ORDERED: ONDANSETRON 4 MG/2 ML VIAL IV PRN (06:23)
[2022-10-19] MEDS ORDERED: IPRATROPIUM BROM 0.5MG/2.5ML NEB PRN (06:23)
[2022-10-19] MEDS ORDERED: ALBUTEROL 2.5 MG/3 ML NEB SOL NEB PRN (06:23)
[2022-10-19] MEDS: FUROSEMIDE 40 MG/4 ML VIAL IV SCH ×2 (06:42→16:18)
[2022-10-19] MEDS: INSULIN -REGULAR HUMAN 50 UNIT/0.5 ML ML SQ SCH ×4 (07:30→21:00)
[2022-10-19] MEDS: AMIODARONE HCL 200 MG TAB PO SCH (08:27)
[2022-10-19] MEDS: SPIRONOLACTONE 25 MG TABLET PO SCH (08:28)
[2022-10-19 09:24] LABS: Arterial Blood Carboxyhemoglob 2.2 % (0-1.5); Blood O2 Saturation 98.2 % (92-98.5)
[2022-10-19] MEDS: TRAMADOL HCL 50 MG TAB PO PRN ×2 (12:08→21:11)
[2022-10-19 14:30] LABS: Renal Epithelial <5 /HPF (None Seen); Specific Gravity 1.023 (1.005-1.030); Urine Bacteria <20 /HPF (<20); Urine Bilirubin NEGATIVE (Negative); Urine Blood Negative (Negative); Urine Clarity Clear (Clear); Urine Color Light-Yellow (Yellow); Urine Glucose NEGATIVE (Negative); Urine Mucus Slight /HPF (None Seen); Urine Protein 1+ (Negative); Urine RBC <5 /HPF (None Seen); Urine Urobilinogen Normal (Normal); Urine WBC Clump Rare /HPF (None Seen)
[2022-10-19] MEDS: RIVAROXABAN 10 MG TABLET PO SCH (16:18)
[2022-10-19] MEDS: TAMSULOSIN 0.4 MG SR CAP PO SCH (21:11)
[2022-10-19] MEDS: ATORVASTATIN 10 MG TAB PO SCH (21:12)
[2022-10-19] MEDS: MELATONIN 5 MG TABLET PO PRN (23:57)
[2022-10-20 06:13] LABS: Absolute Lymphocytes (CBC) 0.9 K/uL (0.7-4.9); Hematocrit 28.9 % (39.6-49.0); Lymphocytes % 9.1 % (15.3-44.8); MCV 89.9 fL (80-100); MPV 8.3 fL (7.6-11.3); RBC Red Blood Cell Count 3.21 M/uL (4.33-5.43)
[2022-10-20 06:37] LABS: Thyroid Stimulating Hormone 2.3 uIU/mL (0.358-3.740)
[2022-10-20] MEDS: INSULIN -REGULAR HUMAN 50 UNIT/0.5 ML ML SQ SCH ×4 (07:30→21:41)
[2022-10-20] MEDS: SPIRONOLACTONE 25 MG TABLET PO SCH (08:12)
[2022-10-20] MEDS: FUROSEMIDE 40 MG/4 ML VIAL IV SCH ×2 (08:12→16:10)
[2022-10-20] MEDS: AMIODARONE HCL 200 MG TAB PO SCH (08:12)
[2022-10-20] MEDS: TRAMADOL HCL 50 MG TAB PO PRN ×3 (09:09→21:40)
[2022-10-20] MEDS ORDERED: ALPRAZOLAM 1 MG TABLET PO PRN (10:43)
[2022-10-20] MEDS: ALPRAZOLAM 0.25 MG TABLET PO PRN (11:12)
--- NOTE | 2022-10-20 11:18 | P.PN ---
Subjective Date of Service: 10/20/22 Chief Complaint: Hypercapnic respiratory failure, CHF exacerbation No acute events overnight. He was transitioned off of BiPAP. This morning, he remains on 5 L nasal cannula. His shortness of breath is still present, but has improved. He reports persistent orthopnea and edema. He denies chest pain or palpitations. Review of Systems 10-point ROS is otherwise unremarkable Respiratory: Shortness of Breath Cardiovascular: Orthopnea, Edema Physical Examination - Vital Signs Temperature: 97.0 F Blood Pressure: 156/93 Pulse: 89 Respirations: 25 Pulse Ox (%): 100 - Physical Exam General: Alert, In no apparent distress, Oriented x3 HEENT: Atraumatic, EOMI, Sclerae nonicteric Neck: JVD distended (minimally) Respiratory: Diminished, Crackles/rales (bibasilar) Cardiovascular: Normal pulses, Regular rate/rhythm, No gallops, No rubs, No murmurs, Edema (1-2+ pitting BLE) Gastrointestinal: Normal bowel sounds, Soft and benign, Non-distended, No tenderness, No rebound, No guarding Musculoskeletal: No clubbing, Other (left leg in splint) Integumentary: No rashes Neurological: Normal speech, Normal affect Assessment And Plan - Plan # Acute on Chronic Hypercapnic Respiratory Failure - likely secondary to Acute on Chronic Decompensated Systolic Congestive Heart Failure with Reduced Ejection Fraction # Chronic Respiratory Failure secondary to Chronic Obstructive Pulmonary Disease on Home Oxygen (3 L) # SIRS Criteria (Tachycardia, Tachypnea) suspect secondary to CHF - suspect CT findings represent pulmonary edema rather than infection # Hypertension Currently, he is on 5 L nasal cannula, with improvement of his SpO2 readings to 99 %. - Evaluation thus far: - Procalcitonin = pending - Presenting ABG = pH 7.31, PCO2 76.7, PO2 84.3 - Chest x-ray = "cardiomegaly with possible interstitial edema and bilateral pleural effusions" - CT chest angiogram = "1. No pulmonary embolism. 2. Emphysema with peripheral and bibasilar predominant bandlike and wedgelike consolidations with associated volume loss and partial bronchial opacifications, favoring subsegmental atelectasis in the setting of aspiration or bronchitis with mucous plugging, though cannot exclude superimposed pneumonia. 3. Redemonstrated trace bilateral pleural effusions, similar to prior exams, with equivocal pulmonary edema 4. Air-fluid level within the esophagus, suggesting gastroesophageal reflux 5. Dense multivessel coronary calcifications, greatest in the LAD" - Management plan: - Consulted Cardiology - recommendations appreciated - Continue IV furosemide for diuresis - Continue home spironolactone - Consulted Respiratory Therapy - Supplemental oxygen to maintain SpO2 > 92% - No longer on BiPAP - Antibiotics not given due to low suspicion of pneumonia - Although CT was indeterminate, his lack of fever and complete resolution of leukocytosis without antibiotics suggest that his SIRS criteria was met due to CHF exacerbation and not sepsis - However, if he develops clinical signs of infection, will empirically start antibiotics - Encouraged incentive spirometry # Suspected KDIGO Stage I Acute Kidney Injury on Chronic Kidney Disease Stage IIII due to Cardiorenal Syndrome - Creatinine = 1.42 -> 1.15 - Urinalysis = 1+ protein - IV diuretics as mentioned above - Monitor creatinine and urine output - If worsening, obtain renal ultrasound - Renally dose medications # Chronic Atrial Fibrillation - Continue home amiodarone, rivaroxaban # Recent Left Tibula/Fibula Fracture s/p Surgery at [facility] (~ 2 weeks ago) - Leg remains in splint - PRN pain control # Type II Diabetes Mellitus - Continue correction scale insulin # Hypothyroidism - Continue home levothyroxine # Dyslipidemia - Continue home atorvastatin # Benign Prostatic Hyperplasia - Continue home tamsulosin # Bipolar Disorder - Reconcile home medications once verified Paul Rey M.D.
[2022-10-20] MEDS: RIVAROXABAN 10 MG TABLET PO SCH (16:10)
--- NOTE | 2022-10-20 16:48 | RAD REPORT ---
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 S agittal and coronal reformatted images were created and reviewed. This CT exam was performed using one or more of the following dose reduction techniques: automated exposure control, adjustment of t he mA and/or kV according to patient size, and/or use of iterative reconstruction technique. MIP reconstructed images were created and reviewed. COMPARISON: 02/15/2021 CTA chest FINDINGS: PULMONARY ARTERIES: Unremarkable. No pulmonary embolism. AORTA: No acute findings. No thoracic aortic aneurysm. LUNGS: Peripheral and bibasilar predominant bandlike and wedgelike consolidations with associated volume loss, bronchial thickening, and partial bronchial opacifications, favoring subsegmental atelec tasis in the setting of aspiration or bronchitis with mucous plugging, though cannot exclude superimp osed pneumonia. Scattered bilateral smooth interseptal thickening suggests mild pulmonary edema. Densely calcified pleural-based granuloma in the right lung base. Emphysema. PLEURAL SPACE: Trace bilateral pleural effusions. No pneumothorax. HEART: Dense multivessel coronary calcifications, greatest in the LAD. No significant pericardial effusion. No evidence of RV dysfunction. MEDIASTINUM: Air-fluid level within the esophagus, suggesting gastroesophageal reflux. BONES/JOINTS: No acute fracture. No dislocation. SOFT TISSUES: Unremarkable. LYMPH NODES: Unremarkable. No enlarged lymph nodes. IMPRESSION: 1. No pulmonary embolism. 2. Emphysema with peripheral and bibasilar predominant bandlike and wedgelike consolidations with ass ociated volume loss and partial bronchial opacifications, favoring subsegmental atelectasis in the se tting of aspiration or bronchitis with mucous plugging, though cannot exclude superimposed pneumonia. 3. Redemonstrated trace bilateral pleural effusions, similar to prior exams, with equivocal pulmona ry edema. 4. Air-fluid level within the esophagus, suggesting gastroesophageal reflux. 5. Dense multivessel coronary calcifications, greatest in the LAD. Electronically signed by: Javier Pinon MD 10/19/2022 6:45 AM A AND P MECHANIC Due to temporary technical issues with the PACS/Fluency reporting system, reports are being signed by the in house radiologists without review as a courtesy to insure prompt reporting. The interpreting radiologist is fully responsible for the content of the report.
--- NOTE | 2022-10-20 17:31 | RAD REPORT ---
EXAM DESCRIPTION: RAD - Chest Single View - 10/19/2022 4:13 am CLINICAL HISTORY: SOB COMPARISON: 09/16/2022 FINDINGS: Single frontal radiograph view of the chest. Cardiomediastinal silhouette: Cardiomegaly. Lungs: Diffuse bilateral interstitial opacities again identified. No pneumothorax. Bilateral pleural effusions.. Bones: No acute osseous abnormality. Upper abdomen: No abnormality identified. IMPRESSION: 1. Cardiomegaly with possible interstitial edema and bilateral pleural effusions. Electronically signed by: Ty Hernández 10/19/2022 5:40 AM SENIOR SAFETY SUPPORT MANAGER Due to temporary technical issues with the PACS/Fluency reporting system, reports are being signed by the in house radiologists without review as a courtesy to insure prompt reporting. The interpreting radiologist is fully responsible for the content of the report.
[2022-10-20] MEDS: TAMSULOSIN 0.4 MG SR CAP PO SCH (21:41)
[2022-10-20] MEDS: ATORVASTATIN 10 MG TAB PO SCH (21:41)
[2022-10-20] MEDS: MELATONIN 5 MG TABLET PO PRN (21:42)
[2022-10-21 06:34] VITALS: BMI 35.1
[2022-10-21 06:35] LABS: Hematocrit 30.4 % (39.6-49.0); MPV 8.3 fL (7.6-11.3); Potassium 3.5 mmol/L (3.5-5.1); RBC Red Blood Cell Count 3.34 M/uL (4.33-5.43)
[2022-10-21] MEDS: INSULIN -REGULAR HUMAN 50 UNIT/0.5 ML ML SQ SCH ×4 (07:30→21:00)
[2022-10-21] MEDS: FUROSEMIDE 40 MG/4 ML VIAL IV SCH ×2 (08:41→17:06)
[2022-10-21] MEDS: SPIRONOLACTONE 25 MG TABLET PO SCH (08:42)
[2022-10-21] MEDS: LEVOTHYROXINE SOD 0.1 MG TAB PO SCH (08:42)
[2022-10-21] MEDS: AMIODARONE HCL 200 MG TAB PO SCH (08:42)
[2022-10-21] MEDS: ALPRAZOLAM 0.25 MG TABLET PO PRN ×2 (08:47→20:09)
--- NOTE | 2022-10-21 12:43 | EKG ---
Test Date: 2022-10-19 Test Time: 02:50:34 Turkish Line Attendant: DUNCAN MEASUREMENT RESULTS: Intervals: Rate: 108 IL: QRSD: 82 QT: 336 QTc: 450 [place]: P: IL: QRS: 63 T: 48 INTERPRETIVE STATEMENTS: Atrial fibrillation with rapid ventricular response Septal infarct, age undetermined Abnormal ECG Compared to ECG 09/16/2022 13:02:43 Myocardial infarct finding now present ST (T wave) deviation no longer present Prolonged QT interval no longer present Electronically Signed On 10-21-22 12:37:40 SALES PROFESSIONAL BILINGUAL by Cristian Avina
--- NOTE | 2022-10-21 14:30 | ECHO ---
HEIGHT: 6 ft 1 in WEIGHT: 266 lb 3.2 oz DATE OF STUDY: 10/21/[address]: Boris Villatoro NP 2-DIMENSIONAL: YES M.MODE: YES DOPPLER: YES COLOR FLOW: YES TDS: YES PORTABLE: YES DEFINITY: BUBBLE STUDY: DIAGNOSIS: CONGESTIVE HEART FAILURE EXERBATION CARDIAC HISTORY: CATHERIZATION: YES SURGERY: NO PROSTHETIC VALVE: NO PACEMAKER: NO MEASUREMENTS (cm) DIASTOLIC (NORMALS) SYSTOLIC (NORMALS) IVSd 0.9 (0.6-1.2) LA Diam 3.6 (1.9-4.0) LVEF 36% LVIDd 4.9 (3.5-5.7) LVIDs 4.1 (2.0-3.5) %FS 17% LVPWd 1.2 (0.6-1.2) Ao Diam 2.5 (2.0-3.7) 2 DIMENSIONAL ASSESSMENT: RIGHT ATRIUM: NORMAL LEFT ATRIUM: ENLARGED RIGHT VENTRICLE: NORMAL LEFT VENTRICLE: DEPRESSED EJECTION FRACTION TRICUSPID VALVE: MILD TRICUSPID REGURGITATION MITRAL VALVE: MILD MITRAL REGURGITATION PULMONIC VALVE: NORMAL AORTIC VALVE: NORMAL PERICARDIAL EFFUSION: NONE AORTIC ROOT: LEFT VENTRICULAR WALL MOTION: MODERATE GLOBAL HYPOKINESIS DOPPLER/COLOR FLOW: SEE BELOW COMMENTS: 1. MODERATELY DEPRESSED LEFT VENTRICULAR EJECTION FRACTION 30-35% 2. MODERATE GLOBAL HYPOKINESIS 3. LEFT ATRIAL ENLARGEMENT 4. MILD MITRAL REGURGITATION 5. MILD TRICUSPID REGURGITATION TECHNOLOGIST: CORDELL COATES
[2022-10-21] MEDS: TRAMADOL HCL 50 MG TAB PO PRN (14:51)
[2022-10-21] MEDS: RIVAROXABAN 20 MG TABLET PO SCH (17:06)
[2022-10-21] MEDS: TAMSULOSIN 0.4 MG SR CAP PO SCH (20:10)
[2022-10-21] MEDS: MELATONIN 5 MG TABLET PO PRN (20:10)
[2022-10-21] MEDS: ATORVASTATIN 10 MG TAB PO SCH (20:10)
--- NOTE | 2022-10-21 20:29 | CON ---
Date of Consultation: 10/21/2022 Reason For Consultation: CHF exacerbation. History Of Present Illness: A 77-year-old male with history of systolic heart failure, COPD, coronar y artery disease, atrial fibrillation, diabetes, bipolar disorder. He was brought in because he was hypoxic, short of breath with lower extremity edema. Denies having any chest pain. Past Medical History: As outlined above in the HPI. Medications: Refer reconciliation sheet for detailed list. Allergies: CAFFEINE AND CODEINE. Family History: No premature coronary artery disease or cancer. Social History: Does not smoke or drink. Does not use any drugs. Review of Systems: All systems reviewed. They were negative except for mentioned in HPI. Physical Examination: Vital Signs: Temperature is 98.4, pulse is 103, breathing at 18, blood pressure 158/86, saturating 9 6%. General: He is a pleasant elderly male, in no distress. Head and Neck: Pupils are equal, reactive to light. Intact eye movements. No cervical lymphadenopa thy. Neck is supple. Thyroid is not enlarged. Lungs: Decreased breathing sounds. No accessory muscle use or muscle retraction. Heart: Irregularly irregular. No extra sounds. Abdomen: Soft, nontender. Bowel sounds positive. No organomegaly. No masses or hernia. No rigidi ty or rebound. Extremities: Edema bilaterally. No clubbing or cyanosis. Intact pulses. Skin: No rashes. Neurologic: Alert, awake. No acute focal deficits appreciated. Lymph Nodes: No cervical or axillary lymphadenopathy. Investigations: BUN 17, creatinine 1.1, and hemoglobin 9.5. Assessment And Recommendations: 1.Acute on chronic systolic heart failure exacerbation. Troponins are negative. Agree with Lasix 4 0 mg q.12 hours. Monitor BUN, creatinine, electrolytes. 2.Atrial fibrillation. Rate is fast. Check his baseline LFTs. If his liver enzymes are normal, re commend to load with amiodarone and plan for a possible cardioversion ANITHA guided during this hospital stay. 3.Dyslipidemia. Continue statin. SR/MODL Voice ID: [id number] Report ID: [id number]
[2022-10-22 03:44] LABS: Hematocrit 27.7 % (39.6-49.0); Lymphocytes % 11.5 % (15.3-44.8); MCV 89.7 fL (80-100); MPV 8.2 fL (7.6-11.3); RBC Red Blood Cell Count 3.09 M/uL (4.33-5.43)
[2022-10-22 04:01] LABS: BUN Blood Urea Nitrogen 18 mg/dL (7-18); Glomerular Filtration Rate 74 ml/min (=/>90); Glucose Level 113 mg/dL (74-106); Potassium 3.4 mmol/L (3.5-5.1); Sodium Level 130 mmol/L (136-145)
[2022-10-22 04:03] LABS: Bicarbonate > 45 mmol/L (21-32)
[2022-10-22] MEDS: TRAMADOL HCL 50 MG TAB PO PRN ×4 (04:16→21:09)
[2022-10-22] MEDS: INSULIN -REGULAR HUMAN 50 UNIT/0.5 ML ML SQ SCH ×4 (07:30→21:05)
[2022-10-22] MEDS: FUROSEMIDE 40 MG/4 ML VIAL IV SCH (08:19)
[2022-10-22] MEDS: ALPRAZOLAM 0.25 MG TABLET PO PRN ×2 (08:19→16:10)
[2022-10-22] MEDS: LEVOTHYROXINE SOD 0.1 MG TAB PO SCH (08:19)
[2022-10-22] MEDS: SPIRONOLACTONE 25 MG TABLET PO SCH (08:19)
[2022-10-22] MEDS: AMIODARONE HCL 200 MG TAB PO SCH (08:19)
[2022-10-22] MEDS ORDERED: POTASSIUM CL SA 10 MEQ TAB PO ONE (10:26)
[2022-10-22] MEDS ORDERED: WATER FOR INJ,STERILE 10 ML ONE (14:29)
[2022-10-22] MEDS ORDERED: ACETAZOLAMIDE 500 MG IV IV ONE (15:00)
[2022-10-22 15:24] LABS: Protime INR 1.44
[2022-10-22 15:40] LABS: Albumin 2.5 g/dL (3.4-5.0); Bilirubin Total 0.5 mg/dL (0.2-1.0); Potassium 3.5 mmol/L (3.5-5.1); Protein, Total 6.6 g/dL (6.4-8.2)
[2022-10-22] MEDS: RIVAROXABAN 20 MG TABLET PO SCH (16:07)
[2022-10-22] MEDS ORDERED: AMIODARONE HCL 75 MG in D5W 100 ML IV STA (18:24)
[2022-10-22] MEDS ORDERED: ALBUTEROL 2.5 MG/3 ML NEB SOL NEB PRN (19:00)
[2022-10-22] MEDS ORDERED: AMIODARONE HCL 450 MG in D5W 241 ML IV SCH (19:00)
[2022-10-22] MEDS: TAMSULOSIN 0.4 MG SR CAP PO SCH (21:04)
[2022-10-22] MEDS: ATORVASTATIN 10 MG TAB PO SCH (21:04)
[2022-10-22] MEDS: MELATONIN 5 MG TABLET PO PRN (21:05)
[2022-10-22] MEDS: ACETAZOLAMIDE 500 MG IV IV SCH (21:06)
[2022-10-22] MEDS: AMIODARONE HCL 900 MG in Dextrose 5%-Water 482 ML IV SCH (23:19)
[2022-10-22 23:57] LABS: Potassium 3.5 mmol/L (3.5-5.1)
--- NOTE | 2022-10-23 06:01 | P.PN ---
Date of Service: 10/21/22 Subjective patient states he is breathing better. Plan on trying to get back to [facility] over the next 48 hours. Otherwise, patient with no new complaints. echocardiogram pending. Physical Examination - Vitals reviewed - Physical Exam General: Alert, In no apparent distress, Oriented x3 Respiratory: Diminished Cardiovascular: Regular rate/rhythm, Normal S1 S2, Edema Gastrointestinal: Normal bowel sounds, No tenderness Musculoskeletal: No tenderness, Other (Left lower extremity in splint) Neurological: No focal deficits Assessment and Plan - Assessment Assessment: Acute on chronic hypercapnic respiratory failure secondary to acute CHF Acute on chronic systolic congestive heart failure COPD on home O2-3 L Atrial fibrillation on chronic anticoagulation Diabetes mellitus type 2insulin-dependent Hypertension Dimension, BPD Hypothyroidism Recent left tib-fib fracture - Plan Plan: 1. continue with diuresing 2. continue with nebs and O2 per protocol 3. Continue with amiodarone 4. Strict blood pressure and blood sugar control 5. Continue with physical therapy; keep leg in splint 6. Plan to transfer back to [facility] over the next 24-48 hours if patient continues to do well
--- NOTE | 2022-10-23 06:03 | P.PN ---
Date of Service: 10/22/22 Subjective patient continues to improve with no new complaints. Spoke with Cardiology and they want patient on amiodarone drip. Physical Examination - Vitals reviewed - Physical Exam General: Alert, In no apparent distress, Oriented x3 Respiratory: Diminished Cardiovascular: Regular rate/rhythm, Normal S1 S2, Edema Gastrointestinal: Normal bowel sounds, No tenderness Musculoskeletal: No tenderness, Other (Left lower extremity in splint) Neurological: No focal deficits Assessment and Plan - Assessment Assessment: Acute on chronic hypercapnic respiratory failure secondary to acute CHF Acute on chronic systolic congestive heart failure COPD on home O2-3 L Atrial fibrillation on chronic anticoagulation Diabetes mellitus type 2insulin-dependent Hypertension Dimension, BPD Hypothyroidism Recent left tib-fib fracture - Plan Plan: 1. continue with diuresing 2. continue with nebs and O2 per protocol 3. Continue with IV amiodarone 4. Strict blood pressure and blood sugar control 5. Continue with physical therapy; keep leg in splint 6. Plan to transfer back to [facility] over the next 24-48 hours if patient continues to do well
[2022-10-23] MEDS: INSULIN -REGULAR HUMAN 50 UNIT/0.5 ML ML SQ SCH ×4 (09:21→21:12)
[2022-10-23] MEDS: TRAMADOL HCL 50 MG TAB PO PRN ×2 (09:22→16:35)
[2022-10-23] MEDS: LEVOTHYROXINE SOD 0.1 MG TAB PO SCH (09:22)
[2022-10-23] MEDS: ACETAZOLAMIDE 500 MG IV IV SCH ×2 (09:23→20:24)
[2022-10-23] MEDS: ALPRAZOLAM 0.25 MG TABLET PO PRN ×2 (09:23→20:23)
[2022-10-23 13:29] LABS: Albumin 2.4 g/dL (3.4-5.0); Bilirubin Total 0.6 mg/dL (0.2-1.0); Potassium 3.6 mmol/L (3.5-5.1); Protein, Total 6.3 g/dL (6.4-8.2)
[2022-10-23] MEDS: RIVAROXABAN 20 MG TABLET PO SCH (16:36)
[2022-10-23] MEDS: TAMSULOSIN 0.4 MG SR CAP PO SCH (20:23)
[2022-10-23] MEDS: ATORVASTATIN 10 MG TAB PO SCH (20:23)
[2022-10-23] MEDS: MELATONIN 5 MG TABLET PO PRN (20:24)
[2022-10-23] MEDS ORDERED: AMIODARONE HCL 150 MG/3 ML INJ IV ONE ×2 (22:08→22:14)
[2022-10-23] MEDS: AMIODARONE HCL 900 MG in Dextrose 5%-Water 482 ML IV SCH (22:58)
[2022-10-24 07:33] LABS: Absolute Lymphocytes (CBC) 0.8 K/uL (0.7-4.9); Lymphocytes % 10.7 % (15.3-44.8); MCV 90.5 fL (80-100); MPV 8.5 fL (7.6-11.3)
[2022-10-24 07:44] LABS: Albumin 2.5 g/dL (3.4-5.0); Bilirubin Total 0.6 mg/dL (0.2-1.0); Potassium 3.4 mmol/L (3.5-5.1); Protein, Total 6.7 g/dL (6.4-8.2)
--- NOTE | 2022-10-24 07:51 | RAD REPORT ---
EXAM DESCRIPTION: [facility] Single View10/24/2022 5:30 am CLINICAL HISTORY: Chest pain COMPARISON: October 19, 2022 FINDINGS: Small pleural effusions are unchanged. Cardiomegaly unchanged Mild right basilar lung opacity is partially resolved IMPRESSION: Partial resolution in mild right basilar lung opacities
[2022-10-24] MEDS: LEVOTHYROXINE SOD 0.1 MG TAB PO SCH (08:19)
[2022-10-24] MEDS: ACETAZOLAMIDE 500 MG IV IV SCH ×2 (08:20→21:20)
[2022-10-24] MEDS: INSULIN -REGULAR HUMAN 50 UNIT/0.5 ML ML SQ SCH ×4 (08:27→21:19)
[2022-10-24] MEDS: ALPRAZOLAM 0.25 MG TABLET PO PRN ×2 (08:30→21:20)
[2022-10-24] MEDS ORDERED: lisinopriL 10 MG TAB PO ONE (11:55)
[2022-10-24] MEDS: TRAMADOL HCL 50 MG TAB PO PRN (13:32)
[2022-10-24] MEDS: RIVAROXABAN 20 MG TABLET PO SCH (17:13)
--- NOTE | 2022-10-24 19:22 | PN ---
Date of Progress Note: 10/24/2022 Subjective: Seen by bedside, doing clinically well. Breathing is better. Review of Systems: No chest pain, shortness of breath, orthopnea, cough, nausea, vomiting, diarrhea. All other systems reviewed are negative. Physical Examination: Vital Signs: Reviewed. Head and Neck: Pupils are equal, reactive to light. Intact eye movements. No JVD. No cervical lym phadenopathy. Neck is supple. Thyroid is not enlarged. Lungs: Clear to auscultation bilaterally. No rhonchi, wheezing, or crackles. No accessory muscle u se. Heart: Irregularly irregular. No extra sounds. Abdomen: Soft, nontender. Bowel sounds positive. No organomegaly. No masses or hernia. No rigidi ty or rebound. Extremities: Trace edema bilaterally. No clubbing, cyanosis. Intact pulses. Skin: No rash. Neurologic: Alert, awake, oriented x3. No acute focal deficits appreciated. Investigations: BUN 19, creatinine 1.2, and hemoglobin is 9.2. Assessment/recommendation: 1.Atrial fibrillation with systolic heart failure, ejection fraction in the mid 30s. He was loaded with amiodarone. I will plan for ANITHA cardioversion tomorrow morning. Keep n.p.o. past midnight. 2.Congestive heart failure, systolic and appears to be euvolemic. Continue current management. SR/MODL Voice ID: [id number] Report ID: [id number]
[2022-10-24] MEDS: MELATONIN 5 MG TABLET PO PRN (21:19)
[2022-10-24] MEDS: AMIODARONE HCL 200 MG TAB PO SCH (21:20)
[2022-10-24] MEDS: TAMSULOSIN 0.4 MG SR CAP PO SCH (21:20)
[2022-10-24] MEDS: ATORVASTATIN 10 MG TAB PO SCH (21:20)
--- NOTE | 2022-10-24 23:58 | P.PN ---
Date of Service: 10/23/22 Subjective Continue amiodarone drip-spoke with and she understands that patient may need ANITHA w/ cardioversion Physical Examination - Vitals reviewed - Physical Exam General: Alert, In no apparent distress, Oriented x3 Respiratory: Diminished Cardiovascular: Regular rate/rhythm, Normal S1 S2, Edema Gastrointestinal: Normal bowel sounds, No tenderness Musculoskeletal: No tenderness, Other (Left lower extremity in splint) Neurological: No focal deficits Assessment and Plan - Assessment Assessment: Acute on chronic hypercapnic respiratory failure secondary to acute CHF Acute on chronic systolic congestive heart failure COPD on home O2-3 L Atrial fibrillation on chronic anticoagulation Diabetes mellitus type 2insulin-dependent Hypertension Dimension, BPD Hypothyroidism Recent left tib-fib fracture - Plan Plan: 1. continue with diuresing 2. continue with nebs and O2 per protocol 3. Continue with IV amiodarone 4. Strict blood pressure and blood sugar control 5. Continue with physical therapy; keep leg in splint 6. Plan to transfer back to [facility] over the next 24-48 hours if patient continues to do well
[2022-10-25] MEDS: TRAMADOL HCL 50 MG TAB PO PRN (05:34)
[2022-10-25 06:14] LABS: Absolute Lymphocytes (CBC) 1.1 K/uL (0.7-4.9); Hematocrit 29.5 % (39.6-49.0); Lymphocytes % 16.2 % (15.3-44.8); MCV 90.3 fL (80-100); MPV 8.5 fL (7.6-11.3); RBC Red Blood Cell Count 3.27 M/uL (4.33-5.43)
[2022-10-25] MEDS ORDERED: FLUMAZENIL 0.1 MG/ML (5 mL VIAL) IV ONE (06:23)
[2022-10-25] MEDS ORDERED: FENTANYL CITR 100 MCG/2 ML ONE (06:23)
[2022-10-25] MEDS ORDERED: MIDAZOLAM HCL 5 ML ONE (06:23)
[2022-10-25] MEDS ORDERED: METOPROLOL TARTRATE 5 MG/5 ML INJ IV ONE (06:23)
[2022-10-25] MEDS ORDERED: PHENOL 1.4% ORAL SPRAY 180ML ONE (06:24)
[2022-10-25] MEDS ORDERED: NA CHLORIDE 0.9% 500 ML ONE (06:24)
[2022-10-25] MEDS ORDERED: LIDOCAINE VISCOUS 2% SOLN 15 ML UDC ONE (06:24)
[2022-10-25] MEDS ORDERED: ATROPINE SULF 1 MG/10 ML SYR IV ONE (06:24)
[2022-10-25 06:38] LABS: Albumin 2.5 g/dL (3.4-5.0); Bilirubin Total 0.5 mg/dL (0.2-1.0); Magnesium 2.1 mg/dL (1.6-2.4); Potassium 3.2 mmol/L (3.5-5.1); Protein, Total 6.4 g/dL (6.4-8.2)
[2022-10-25] MEDS: INSULIN -REGULAR HUMAN 50 UNIT/0.5 ML ML SQ SCH ×4 (07:30→20:42)
[2022-10-25] MEDS: lisinopriL 10 MG TAB PO SCH (09:00)
--- NOTE | 2022-10-25 09:35 | OP ---
Date of Procedure: 10/25/2022 Surgeon: NIRU VALERIO Procedure Performed: ANITHA-guided cardioversion. Procedure In Detail: After risks, benefits, and alternatives were explained, the patient agreed to t he procedure and signed informed consent. We numbed the back of the throat using local lidocaine and then gave 5 mg of Versed. ANITHA probe was inserted successfully. No left atrial appendage thrombus w as seen. Then, ANITHA probe was removed and synchronized 200 joule cardioversion was performed successf ully converting the rhythm to sinus rhythm. Conclusion: Successful ANITHA-guided electrical cardioversion to sinus rhythm. SR/MODL Voice ID: [id number] Report ID: [id number]
[2022-10-25] MEDS: AMIODARONE HCL 200 MG TAB PO SCH ×2 (09:42→20:41)
[2022-10-25] MEDS: LEVOTHYROXINE SOD 0.1 MG TAB PO SCH (09:42)
[2022-10-25] MEDS: ACETAZOLAMIDE 500 MG IV IV SCH ×2 (09:43→22:09)
--- NOTE | 2022-10-25 13:18 | EKG ---
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 RESULTS: Intervals: Rate: 59 ND: 218 QRSD: 90 QT: 576 QTc: 570 [place]: P: 58 ND: 218 QRS: 41 T: 86 INTERPRETIVE STATEMENTS: Sinus bradycardia with 1st degree AV block with occasional premature ventricular complexes Nonspecific ST and T wave abnormality Prolonged QT Abnormal ECG Compared to ECG 10/19/2022 02:50:34 Ventricular premature complex(es) now present First degree AV block now present ST (T wave) deviation now present Prolonged QT interval now present Atrial fibrillation no longer present Myocardial infarct finding no longer present Electronically Signed On 10-25-22 13:17:50 FITNESS SPECIALIST by Cristian Avina
--- NOTE | 2022-10-25 14:48 | TEE ---
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 TRANSESOPHAGEAL ECHOCARDIOGRAM PROBE INSERTED WITHOUT DIFFICULTY. 2. NO LEFT ATRIAL APPENDAGE THROMBUS IS SEEN TECHNOLOGIST: JUSTYNA BEAULIEU
[2022-10-25] MEDS: ALPRAZOLAM 0.25 MG TABLET PO PRN ×2 (16:34→22:05)
[2022-10-25] MEDS: RIVAROXABAN 20 MG TABLET PO SCH (16:34)
[2022-10-25] MEDS ORDERED: POTASSIUM CL SA 10 MEQ TAB PO ONE (20:00)
[2022-10-25] MEDS: TAMSULOSIN 0.4 MG SR CAP PO SCH (20:41)
[2022-10-25] MEDS: ATORVASTATIN 10 MG TAB PO SCH (20:41)
[2022-10-25] MEDS: MELATONIN 5 MG TABLET PO PRN (22:05)
[2022-10-26 08:40] LABS: Potassium 3.7 mmol/L (3.5-5.1)
[2022-10-26] MEDS ORDERED: POTASSIUM CL SA 10 MEQ TAB PO ONE (09:10)
[2022-10-26] MEDS: INSULIN -REGULAR HUMAN 50 UNIT/0.5 ML ML SQ SCH ×4 (09:20→20:41)
[2022-10-26] MEDS: AMIODARONE HCL 200 MG TAB PO SCH ×2 (09:20→20:39)
[2022-10-26] MEDS: ACETAZOLAMIDE 500 MG IV IV SCH (09:21)
[2022-10-26] MEDS: LEVOTHYROXINE SOD 0.1 MG TAB PO SCH (09:21)
[2022-10-26] MEDS: lisinopriL 10 MG TAB PO SCH (09:21)
[2022-10-26] MEDS ORDERED: NA CHLORIDE 0.9% 250 ML IV ONE ×2 (09:27→15:18)
[2022-10-26] MEDS: ALPRAZOLAM 0.25 MG TABLET PO PRN ×2 (09:27→20:38)
[2022-10-26 14:26] LABS: Potassium 3.9 mmol/L (3.5-5.1)
[2022-10-26] MEDS: SODIUM CHLORIDE 1 GM TAB PO SCH ×2 (15:39→16:11)
[2022-10-26] MEDS ORDERED: RIVAROXABAN 15 MG TABLET PO SCH ×2 (17:00)
[2022-10-26] MEDS: ACETAMINOPHEN 325 MG TABLET PO PRN (17:58)
[2022-10-26] MEDS: ATORVASTATIN 10 MG TAB PO SCH (20:38)
[2022-10-26] MEDS: TAMSULOSIN 0.4 MG SR CAP PO SCH (20:39)
[2022-10-26] MEDS: MELATONIN 5 MG TABLET PO PRN (20:39)
[2022-10-27] MEDS: ACETAMINOPHEN 325 MG TABLET PO PRN ×2 (04:43→10:42)
[2022-10-27 06:38] LABS: Absolute Lymphocytes (CBC) 0.9 K/uL (0.7-4.9); Hematocrit 26.8 % (39.6-49.0); Lymphocytes % 15.6 % (15.3-44.8); MCV 89.8 fL (80-100); MPV 8.3 fL (7.6-11.3); RBC Red Blood Cell Count 2.98 M/uL (4.33-5.43)
[2022-10-27 06:50] LABS: Potassium 3.9 mmol/L (3.5-5.1)
[2022-10-27] MEDS: INSULIN -REGULAR HUMAN 50 UNIT/0.5 ML ML SQ SCH ×2 (07:30→11:30)
--- NOTE | 2022-10-27 08:17 | RAD REPORT ---
[facility] 6:57 am CLINICAL HISTORY: pneumonia COMPARISON: Chest Single View dated 10/24/2022; Chest Single View dated 10/19/2022; Chest Single View dated 09/16/2022; Chest Single View dated 08/29/2022 TECHNIQUE: Portable AP view of the chest. FINDINGS: The bibasilar airspace opacities, unchanged. Thickening versus trace effusion along the ri ght minor fissure. No pneumothorax or sizable effusion. The cardiomediastinal contours are unremarkab le. IMPRESSION: Stable bibasilar mild pulmonary opacities, may reflect atelectasis or unresolved pneumon ia. Trace right effusion.
[2022-10-27] MEDS: SODIUM CHLORIDE 1 GM TAB PO SCH ×2 (08:27→12:00)
[2022-10-27] MEDS: AMIODARONE HCL 200 MG TAB PO SCH (08:27)
[2022-10-27] MEDS: lisinopriL 10 MG TAB PO SCH (08:27)
[2022-10-27] MEDS: LEVOTHYROXINE SOD 0.1 MG TAB PO SCH (08:27)
[2022-10-27] MEDS: ALPRAZOLAM 0.25 MG TABLET PO PRN (08:30)
[2022-10-27 09:29] VITALS: O2SAT 94
[2022-10-27 12:30] VITALS: BP 156/59; TEMP 97.3
== END 2022-10-27 12:57 | DRG 291 ==
LOC: ER 01:49 → ERHOLD 04:52 → 2ND 05:31
PROVIDERS: ADMIT Internal Medicine; ATTEND Hospitalist
PROC: 5A09557 Assistance with Respiratory Ventilation, Greater than 96 Consecutive Hours, Continuous Positive Airway Pressure (ICD-10-PCS; principal; 2022-10-19)
PROC: 5A2204Z Restoration of Cardiac Rhythm, Single (ICD-10-PCS; 2022-10-25)
PROC: B24BZZ4 Ultrasonography of Heart with Aorta, Transesophageal (ICD-10-PCS; 2022-10-25)
DX: I13.0 Hypertensive heart and chronic kidney disease with heart failure and stage 1 through stage 4 chronic kidney disease, or unspecified chronic kidney disease (principal); I50.23 Acute on chronic systolic (congestive) heart failure; J96.22 Acute and chronic respiratory failure with hypercapnia; J96.21 Acute and chronic respiratory failure with hypoxia; R65.10 Systemic inflammatory response syndrome (SIRS) of non-infectious origin without acute organ dysfunction; N17.9 Acute kidney failure, unspecified; I48.20 Chronic atrial fibrillation, unspecified; N18.30 Chronic kidney disease, stage 3 unspecified; E11.22 Type 2 diabetes mellitus with diabetic chronic kidney disease; E78.5 Hyperlipidemia, unspecified; J43.9 Emphysema, unspecified; N40.0 Benign prostatic hyperplasia without lower urinary tract symptoms; E03.9 Hypothyroidism, unspecified; F31.9 Bipolar disorder, unspecified; I25.10 Atherosclerotic heart disease of native coronary artery without angina pectoris; S82.402D Unspecified fracture of shaft of left fibula, subsequent encounter for closed fracture with routine healing; S82.202D Unspecified fracture of shaft of left tibia, subsequent encounter for closed fracture with routine healing; Z88.5 Allergy status to narcotic agent; Z79.4 Long term (current) use of insulin; Z95.5 Presence of coronary angioplasty implant and graft; Z79.01 Long term (current) use of anticoagulants; Z99.81 Dependence on supplemental oxygen; Z79.52 Long term (current) use of systemic steroids; Z91.09 Other allergy status, other than to drugs and biological substances; Z79.899 Other long term (current) drug therapy; Z87.891 Personal history of nicotine dependence; Z79.890 Hormone replacement therapy; Z20.822 Contact with and (suspected) exposure to COVID-19
CPT/HCPCS: 0240U; 36415; 71045; 71275; 80048; 80053; 80061; 81001; 82805; 82947; 83735; 83880; 84145; 84439; 84443; 84484; 85025; 85610; 85730; 93005; 93306; 93312; 94010; 94660; 94760; 96374; 97110; 97161; 97530; 99285; J0282; J0461; J1120; J1815; J1940; J2250; J3010; J7040; J7050; J7060; Q9967; U0003

== ENCOUNTER 2022-11-05 07:43 | Inpatient (IN) | payer OTHER ==
[2022-11-05] MEDS ORDERED: propofoL 1,000 MG/100 ML VIAL IV ONE ×4 (08:00→20:48)
--- OUTSIDE RECORDS SUMMARY | 2022-11-05 08:08 | XMS REPORT | Continuity of Care Document ---
:1945 Author Organization [facility] t Address [address] [place] [address]. [address] [place] [address] Care Team Providers Name Role Phone No , Layo Primary Care Physician Unavailable Jenna Orellana Attending Clinician Unavailable ALEXY MOODY Attending Clinician Unavailable Che Delgado Attending Clinician JUD DOCKERY Attending Clinician Unavailable ANDREW OVIEDO Attending Clinician Unavailable Andrew Oviedo MD Attending Clinician Erlin Rodriguez MD Attending Clinician Doctor Unassigned, [place] Attending Clinician Unavailable Giancarlo Murphy Attending Clinician JUD DOCKERY Admitting Clinician Unavailable ANDREW OVIEDO Admitting Clinician Unavailable Giancarlo Murphy Admitting Clinician Payers Payer Name Policy Type Policy Number Effective Date Expiration Date Jayden stewart [facility] [employer] [id number] 2022 OON EXCEPT HHS 00:00:00 [facility] [id number] [facility] MEDICARE PART A \\T\\ B [id number] 2001 00:00:00 MEDICAID OF [place] [id number] 2012 00:00:00 Problems Condition Condition Condition Status [...] BILATERAL 00:00: Dorinda arenas Active 00 07/27/2016 [facility] WEAKNESS WEAKNESS Diagnosis Active 2016-05-30 Memoria Active 05-30 22:11:00 l 05/30/2016 07:00: Rudy shankar 00 [facility] AMS AMS Diagnosis Active 2015-02-20 Mem oria Active 02-17 16:39:00 l 02/17/2015 00:00: Rudy shankar [address] [facility] SOB SOB Diagnosis Active 2013-092015-05-19 Mem oria Active 09:41:00 l 06/08/2014 00:00: Rudy shankar [address] [facility] Diabetes Diabetes Disease Active Unive rs mellitus mellitus 8-10 ity of type 2, type 2, 00:00: [place] controlled controlled 00 [place] dical Branch HLD HLD Disease Active Univers (hyperlipi (hyperlipi 8-10 it y of demia) demia) 00:00: [place] 00 Medical Branch Essential Essential Disease Active Uni vers hypertensi hypertensi 8-10 it y of on, benign on, benign [place] Schizoaffe Schizoaffe Disease Active U nivers ctive ctive 8-10 ity of disorder disorder 00:00: [place] 00 Medical Branch Low Low Disease Active Univers testostero testostero 8-10 it y of ne ne 00:00: [place] [facility] COPD COPD Disease Active Univers [...] different from the original. ICD10 Diagnosis Term [employer] Hypothyroi Hypothyroi Disease Active U nivers dism dism 8-10 ity of 00:00: 00 Medical Branch Type 2 Type 2 Problem Active Common diabetes diabetes Spirit mellitus mellitus - [facility] without without St complicati complicati Jade kes on, on, Medical unspecifie unspecifie Ce nter d whether d whether long term care phlebotomist long term care phlebotomist insulin insulin use use Congestive Congestive Problem Active C ommon heart heart Spirit failure, failure, - [facility] unspecifie unspecifie [facility] d HF d HF [facility] chronicity chronicity Me dical , , Center unspecifie unspecifie d heart d heart failure failure type type Essential Essential Problem Active Com mon (primary) (primary) Spir it hypertensi hypertensi - [facility] on on [facility] Depression Depression Problem Active C ommon with with Spirit anxiety anxiety - [facility] Acquired Acquired Problem Active Commo n hypothyroi hypothyroi Sp leila dism dism [facility] Bipolar 1 Bipolar 1 Problem Active Com mon disorder, disorder, Spir it depressed, depressed, - [facility] full full St remission remission [facility] Hyperlipid Hyperlipid Problem Active C ommon emia, emia, Spirit unspecifie unspecifie - [facility]I d d St hyperlipid hyperlipid Jade ke emia type emia type [facility] Center Seasonal Seasonal Problem Active Commo n allergies allergies Spir it - [facility] Chronic Chronic Problem Active Common obstructiv obstructiv Sp leila e e - [facility]I pulmonary pulmonary St disease, disease, kes unspecifie unspecifie Me dical d COPD d COPD Center type type Type 2 Type 2 Problem Active Common diabetes diabetes Spirit mellitus mellitus - [facility] with foot with foot St ulcer ulcer [facility] Non-pressu Non-pressu Problem Active C ommon re chronic re chronic Sp leila ulcer of ulcer of - CHI other part other part St of right of right [facility] foot with foot with Medi magda other other Center specified specified severity severity Recurrent Recurrent Problem Active Com mon [place] Spirit while while - [facility]I walking walking [facility] Chronic Chronic Problem Active Common kidney kidney Spirit disease, disease, - [facility] unspecifie unspecifie St d CKD d CKD [facility] stage stage [facility] Hypocalcem Hypocalcem Problem Active C ommon ia ia Spirit - [facility] Generalize Generalize Problem Active C ommon d muscle d muscle Spirit weakness weakness - [facility] Generalize Generalize Problem Active C ommon d weakness d weakness Sp leila - [facility] 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 Acute Acute Problem Resolve 2017-06-13 David cedrick congestive congestive d 00:54:32 l heart heart Gómez failure failure (disorder) (disorder) Resolved Problem 06/13/2017 [facility] Hypertensi Hypertens Problem Resolve 2017-06-13 Memoria ve forest d 00:54:32 l disorder, disorder, Herm deepa systemic systemic arterial arterial (disorder) (disorder) Resolved Problem 06/13/2017 [facility] Schizophre Schizophr Problem Resolve 2017-06-13 Memoria boubacar enia d 00:54:32 l (disorder) (disorder) He rmann Resolved Problem 06/13/2017 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 Arthritis Arthritis Problem Active 2017-06-13 Memoria (disorder) (disorder) 00:54:32 l Active Mary Esther Problem 06/13/2017 [facility] Depressive Depressiv Problem Active 2017-06-13 Memoria disorder e disorder 00:54:32 l (disorder) (disorder) He rmann Active Problem 06/13/2017 [facility] Diabetes Diabetes Problem Active 2017-06-13 Memoria mellitus mellitus 00:54:32 l (disorder) (disorder) He rmann Active Problem 06/13/2017 [facility] Gastroesop Gastroeso Problem Active 2017-06-13 Memoria hageal phageal 00:54:32 l reflux reflux Gmóez disease disease (disorder) (disorder) Active Problem 06/13/2017 [facility] Narcosis Narcosis Problem Active 2017-06-13 Memoria (finding) (finding) 00:54:32 l Active Mary Esther Problem 06/13/2017 [facility] CHR AIRWAY CHR Diagnosis Active 2015-05-19 Memoria OBSTRUCT AIRWAY 09:41:00 l NEC OBSTRUCT G[place]me[place] NEC Active [facility] ALTERED ALTERED Diagnosis Active 2015-02-20 Memoria MENTAL MENTAL 16:39:00 l STATUS STATUS Mary Esther Active [facility] UNSPECIFIE UNSPECIFI Diagnosis Active 2017-04-03 Memoria D OPEN ED OPEN 16:00:00 l WOUND, WOUND, Góme[place] RIGHT RIGHT FOOT, SUBS FOOT, SUBS Active [facility] NON-PRS NON-PRS Diagnosis Active 2015-09-18 Memoria CHRONIC CHRONIC 16:01:00 l ULCER OTH ULCER OTH Herm deepa PRT RIGHT PRT RIGHT FOOT FOOT Active [facility] TYPE 2 TYPE 2 Diagnosis Active 2015-11-22 Al moria DIABETES W DIABETES W 08:18:00 l DIABETIC DIABETIC Rudy n PERIPHERAL PERIPHERAL AN AN Active [facility] TINEA TINEA Diagnosis Active 2016-05-07 Mem oria UNGUIUM UNGUIUM 16:57:00 l Active [facility] TYPE 2 TYPE 2 Diagnosis Active 2016-05-07 Al moria DIABETES DIABETES 16:57:00 l MELLITUS MELLITUS Rudy n WITH WITH DIABETIC P DIABETIC P Active [facility] NON-PRS NON-PRS Diagnosis Active 2016-01-09 Memoria CHRONIC CHRONIC 15:34:00 l ULCER OTH ULCER OTH Herm deepa PRT R FOOT PRT R FOOT STRE[address] STRE[address] Active [facility] CORNS AND CORNS Diagnosis Active 2016-05-07 Memoria CALLOSITIE AND 16:57:00 l S CALLOSITIE Rudy n S Active [facility] MUSCLE MUSCLE Diagnosis Active 2016-07-29 Me moria WEAKNESS WEAKNESS 15:57:00 l (GENERALIZ (GENERALIZ [facility] ED) ED) Active [facility] CHOLECYSTI CHOLECYST Diagnosis Active 2017-11-11 Memdoc TIS, ITIS, 12:12:00 l UNSPECIFIE UNSPECIFIE He rmann D D Active [facility] History of Past Illness Condition Condition Condition Status Onset Resolution Last Treating Co mments Source Name Details Category Date Date Treatment Clinician Date Discharge Discharge Problem 2016-06-02 2016-06-02 Memoria Diagnosis: Diagnosis: 05-30 03:26:48 03:26:48 l Fatigue Fatigue 05:00: Gómez 05/30/2016 00 6 [facility] Discharge Discharge Problem 2016-06-02 [facility]: Diagnosis: 05-30 03:26:48 03:26:48 l Acute Acute 05:00: Mary Esther renal renal 00 insufficie insufficie ncy ncy 05/30/2016 06/02/2016 [facility] Discharge Discharge Problem 2016-06-02 2016-06-02 Memoria Diagnosis: Diagnosis: 05-30 03:26:48 03:26:48 l Dehydratio Dehydratio 05:00: He trista n n 00 05/30/2016 06/02/2016 [facility] Allergies, Adverse Reactions, Alerts Allergy Allergy Status Severity Reaction(s) Onset Inactive Treating Comm ents Source Name Type Date Date Clinician Caffeine Allergy Active Anaphylaxis [place] to 03-12 Health substanc 00:00: e 00 CODEINE DRUG Active Unknown-Cmnt Uni vers INGREDI 05-14 ity of 00:00: [place] 00 Medical Branch Codeine Propensi Active Unknown - Univ ers ty to See comments 05-14 ity of adverse 00:00: [place] reaction 00 Medical s Branch Codeine Allergy Active Other [place] to 05-14 Health substanc 00:00: e 00 codeine Adverse Active Info Not Common Reaction Available [facility] Social History Social Habit Start Date Stop Date Quantity Comments Source History SDMS University o f Alcohol Frequency [place] M ed[facility] History SDMS University o f Alcohol Std [place] Medical Drinks Branch History SDMS University o f Alcohol Binge [place] [facility] al [facility] History of Chews Tobacco University of tobacco use [place] [facility] Exposure to 2022-10-21 2022-10-31 Not sure [place] [facility] SARS-CoV-2 00:00:00 14:02:00 (event) Social History 2015-02-17 2015-02-17 Mary colbert 18:36:27 18:36:27 Alcohol intake 2012-12-31 2012-12-31 Current University of 00:00:00 00:00:00 non-drinker of [facility] alcohol Branch (finding) Alcohol Comment 2011-06-28 2011-06-28 quit alcohol Univers ity of 00:00:00 00:00:00 [facility] Tobacco use and 2011-06-28 2011-06-28 Current user Univers ity of exposure 00:00:00 00:00:00 [facility] Sex [birth year] [facility] 00:00:00 00:00:00 Smoking Status Start Date Stop Date Source Tobacco smoking [facility] consumption unknown Former smoker 2011-06-28 00:00:00 2011-06-28 [place] [facility] 00:00:00 Medical Branch Medications Ordered Filled Start Stop Current Ordering Indication Dosage Frequency Signature Comments Components Source Medication Medication Date Date Medication? Clinician (SIG) Name Name Carvedilol Carvedilol 2018- Yes Jenna 1 tablet Common 9-26 [facility] 00:00: - [facility] Glucometer Glucometer Yes Jenna one strip Common test strips test strips 9-16 Millender using the Spirit 00:00: [facility] Metric [facility] Albuterol Albuterol 2017-09 Yes Jenna 3 ml as Common Sulfate Sulfate 2-18 Millender needed Sp leila 00:00: - [facility] fluconazole 2016-09 Yes 200 mg = 2 Memoria 100 mg oral 0-10 tab, PO, l tablet 21:09: [id number], 0 Padmini nn 00 Refill(s) fluconazole 2016-09 Yes 200 mg = 2 Memoria 100 mg oral 0-10 tab, PO, l tablet 21:09: [id number], 0 Padmini nn 00 Refill(s) fluconazole 2016-09 Yes 200 mg = 2 Memoria 100 mg oral 0-10 tab, PO, l tablet 21:09: [id number], 0 Padmini nn 00 Refill(s) Saline 2016-09 No 10 mL, Memoria Flush 0.9% 0-10 Route: l 21:00: IVP, Drug Mary Esther 00 Form: INJ, Dosing Weight 118.682, kg, Q8H, Start date: 06/10/17 16:00:00 CDT, Duration: 30 day, Stop date: 07/10/17 8:00:00 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 He rmann Injectable 00 (Same as: Solution Xylocaine MPF) Saline 2016-09 No 10 mL, Memoria Flush 0.9% 0-10 Route: l 21:00: IVP, Drug Gómez 00 Form: INJ, Dosing Weight 118.682, kg, Q8H, Start date: 06/10/17 16:00:00 CDT, Duration: 30 day, Stop date: 07/10/17 8:00:00 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 He rmann Injectable 00 (Same as: Solution Xylocaine MPF) Saline 2016-09 No Notes: Memoria Flush 0.9% 0-10 (Same as: l 20:41: BD Mary Esther 00 Posiflush) Saline 2016-09 No Notes: Memoria Flush 0.9% 0-10 (Same as: l 20:41: BD Mary Esther 00 Posiflush) Saline 2016-09 No Notes: Memoria Flush 0.9% 0-10 (Same as: l 20:41: BD Gómez 00 Posiflush) Lidocaine 2016-09 No 5 mL, Memoria Hydrochlori 0-10 Route: l de 10 MG/ML 19:00: INTRADERM, Gómez Injectable 00 Dosing Solution Weight 118.682, kg, ONCALL, Start date: 06/10/17 14:00:00 CDT, Duration: 30 day, Stop date: 07/10/17 12:59:00 STATEMENT CLERKS MANAGER BD Normal 2016-09 No Notes: Memori a Saline 0-10 (Same as: l Flush 19:00: BD Gómez 00 Posiflush) Lidocaine 2016-09 No 5 mL, Memoria Hydrochlori 0-10 Route: l de 10 MG/ML 19:00: INTRADERM, Gómez Injectable 00 Dosing Solution Weight 118.682, kg, ONCALL, Start date: 06/10/17 14:00:00 CDT, Duration: 30 day, Stop date: 07/10/17 12:59:00 STATEMENT CLERKS MANAGER BD Normal 2016-09 No Notes: Memori a Saline 0-10 (Same as: l Flush 19:00: BD Mary Esther 00 Posiflush) Lidocaine 2016-09 No 5 mL, Memoria Hydrochlori 0-10 Route: l de 10 MG/ML 19:00: INTRADERM, Gómez Injectable 00 Dosing Solution Weight 118.682, kg, ONCALL, Start date: 06/10/17 14:00:00 CDT, Duration: 30 day, Stop date: 07/10/17 12:59:00 STATEMENT CLERKS MANAGER BD Normal 2016-09 No Notes: Memori a Saline 0-10 (Same as: l Flush 19:00: BD Mary Esther 00 Posiflush) Saline 2016-09 No Notes: Memoria Flush 0.9% 0-10 (Same as: l 18:26: BD Mary Esther 00 Posiflush) Saline 2016-09 No Notes: Memoria Flush 0.9% 0-10 (Same as: l 18:26: BD Gómez 00 Posiflush) Saline 2016-09 No Notes: Memoria Flush 0.9% 0-10 (Same as: l 18:26: BD Mary Esther 00 Posiflush) Lidocaine 2016-09 No Notes: Memori [...] 0.9% 0-10 (Same as: l 17:59: BD Mary Esther 00 Posiflush) Saline 2016-09 No Notes: Memoria Flush 0.9% 0-10 (Same as: l 17:59: BD Gómez 00 Posiflush) Saline 2016-09 No Notes: Memoria Flush 0.9% 0-10 (Same as: l 17:59: BD Mary Esther 00 Posiflush) Protonix 2016-09 No Notes: Memoria 0-09 Tablet l 21:30: should not Mary Esther 00 be chewed or crushed. (Same as: Protonix) Protonix 2016-09 No Notes: Memoria 0-09 Tablet l 21:30: should not Mary Esther 00 be chewed or crushed. (Same as: Protonix) Protonix 2016-09 No Notes: Memoria 0-09 Tablet l 21:30: should not Mary Esther 00 be chewed or crushed. (Same as: Protonix) Miralax 2016-09 No Notes: Memoria 0-09 Dissolve l 17:11: in 8 oz of Mary Esther 00 water or juice. (Same as: Miralax) Miralax 2016-09 No Notes: Memoria 0-09 Dissolve l 17:11: in 8 oz of Mary Esther 00 water or juice. (Same as: Miralax) [...] Memoria 0-03 (Same as: l 16:00: Zosyn) Mary Esther 00 Dosing based on Piperacill in component [...] cedrick 0-03 (Same as: l 07:17: Apresoline Mary Esther ) Push over 5 minutes Hydralazine 2016-09 No Notes: David cedrick 0-03 (Same as: l 07:17: Apresoline Mary Esther ) Push over 5 minutes Diflucan 2016-09 No Notes: Memoria 0-01 (Same as: l 20:00: Diflucan) Gómez Diflucan 2016-09 No Notes: Memoria 0-01 (Same as: l 20:00: Diflucan) Mary Esther Diflucan 2016-09 No Notes: Memoria 0-01 (Same as: l 20:00: Diflucan) G[place]me[place] Lasix 2016-09 No Notes: Memoria 0-01 (Same as: l 15:04: Lasix) G[place]me[place] Lasix 2016-09 No Notes: Memoria 0-01 (Same as: l 15:04: Lasix) Gómez 00 Lasix 2016-09 No Notes: Memoria 0-01 (Same as: l 15:04: Lasix) Gómez 00 Diflucan No Notes: Memoria 9-30 (Same as: l 22:00: Diflucan) Mary Esther 00 Do not refrigerat e Diflucan No Notes: Memoria 9-30 (Same as: l 22:00: Diflucan) Mary Esther 00 Do not refrigerat e Diflucan No Notes: Memoria 9-30 (Same as: l 22:00: Diflucan) Gómez Do not refrigerat e Flagyl No Notes: Memoria 9-30 (Same as: l 21:00: Flagyl) Mary Esther Avoid alcohol. Flagyl No Notes: Memoria 9-30 (Same as: l 21:00: Flagyl) Mary Esther Avoid alcohol. Flagyl No Notes: Memoria 9-30 (Same as: l 21:00: Flagyl) Gómez 00 Avoid alcohol. Lovenox 2017-0 No 30 mg, Memoria 05-30 Route: l 18:00: SUB-Q, Drug form: INJ, [id number], Dosing Weight 118.682, kg, For CrCl <30mL/min, Start date: 05/30/17 13:00:00 CDT, Duration: 30 day, Stop date: 06/28/17 13:00:00 CDT Lovenox 2016-0 No 30 mg, Memoria 05-30 Route: l 18:00: SUB-Q, Drug form: INJ, [id number], Dosing Weight 118.682, kg, For CrCl <30mL/min, Start date: 05/30/17 13:00:00 CDT, Duration: 30 day, Stop date: 06/28/17 13:00:00 CDT Lovenox 2016-0 No 30 mg, Memoria 05-30 Route: l 18:00: SUB-Q, Drug form: INJ, [id number], Dosing Weight 118.682, kg, For CrCl <30mL/min, [...] Laxative 9-25 (Same As: l 20:24: Dulcolax, Mary Esther 00 Bisco-Lax) Dulcolax No Notes: Memoria Laxative 9-25 (Same As: l 20:24: Dulcolax, Gómez 00 Bisco-Lax) timolol No Notes: Memoria ophthalmic 9-25 (Same As: l 19:00: Timoptic, Gómez 00 Betimol) timolol No Notes: Memoria ophthalmic 9-25 (Same As: l 19:00: Timoptic, Mary Esther 00 Betimol) timolol No Notes: Memoria ophthalmic 9-25 (Same As: l 19:00: Timoptic, Mary Esther 00 Betimol) magnesium No Notes: Memori a [...] 9-24 (Same as: l / 16:00: Duoneb) Mary Esther Ipratropium 00 Jeffers 0.167 MG/ML Inhalant Solution Albuterol No Notes: Memori a 0.833 MG/ML 9-24 (Same as: l / 16:00: Duoneb) Mary Esther Ipratropium 00 Jeffers 0.167 MG/ML Inhalant Solution Albuterol No Notes: Memori a 0.833 MG/ML 9-24 (Same as: l / 16:00: Duoneb) Mary Esther Ipratropium 00 Jeffers 0.167 MG/ML Inhalant Solution Budesonide No Notes: [...] CDT, Stop date: 05/24/17 19:24:00 CDT Dextrose 0 No 50 mL, Memoria 50% in 05-25 [...] gm, Memoria 05-24 Route: l 23:34: IVPB, Mary Esther 00 ONCE, Dosing Weight 118.682, kg, Start [...] sodium No 1,000 mL, Memori a chloride 9- Rate: 75 l 0.9% 1000 17:41: ml/hr, Rudy n ml INJ 00 Infuse 1,000 mL over: 13.3 hr, Route: IV, Dosing Weight 118.682 kg, Total Volume: 1,000, Start date: 05/24/17 12:41:00 CDT, Stop date: 06/23/17 12:40:00 CDT sodium No 1,000 mL, Memori a chloride 9- Rate: 75 l 0.9% 1000 17:41: ml/hr, [...] Shake well before use No Notes: Memoria 05-24 (Same as: l 14:00: ) omega-3 No Notes: Memoria polyunsatur 05-24 (Same as: l ated fatty 14:00: MaxEPA, Herm deepa acids Haviland 3 fish oil ) Non-Formul genaro Drug [...] Notes: Memoria 9-23 (Same as: l 14:00: Sepuvia) omega-3 No Notes: Memoria polyunsatur - (Same as: l ated fatty 14:00: MaxEPA, Herm deepa acids 00 Haviland 3 fish oil ) Non-Formul genaro Drug [...] fatty 14:00: MaxEPA, Herm deepa acids 00 [place]and 3 fish oil ) Non-Formul genaro Drug Vitamin D3 No Notes: Memor ia 05-24 Same as : l 14:00: Vitamin D3 venlafaxine No Notes: David cedrick 05-24 (Same As: l 14:00: Effexor) Albuterol No Notes: Memori a 0.833 MG/ML - (Same as: l 13:46: Duoneb) Gómez Ipratropium 00 Jeffers 0.167 MG/ML Inhalant Solution [DuoNeb] Albuterol No Notes: Memori a 0.833 MG/ML -23 (Same as: l / 13:46: Duoneb) Gómez Ipratropium 00 Jeffers 0.167 MG/ML Inhalant Solution [DuoNeb] Albuterol No Notes: Memori a 0.833 MG/ML - (Same as: l / 13:46: Duoneb) Gómez Ipratropium 00 Jeffers 0.167 MG/ML Inhalant Solution [DuoNeb] tiotropium No [...] a 05-24 (Same As: l 02:00: Desyrel) Mary Esther 00 Risperidone No Notes: David cedrick 05-24 [...] use only" Fenofibrate No Notes: David cedrick 9-23 (Same as: l 02:00: Tricor) 24 HR No Notes: Memoria Divalproex 9-23 (Same as: l Sodium 500 02:00: Depakote Her andujar MG Extended 00 ER) Once Release daily Tablet dosing; indicated for migraines. Divalproex sodium extended-r elease tab. Do not chew or crush. "Do Not Crush" Trazodone No Notes: Memori a 9-23 (Same As: l 02:00: Desyrel) Risperidone No Notes: David cedrick 9-23 (Same as: l 02:00: Risperdal) latanoprost No [...] use only" Fenofibrate No Notes: David cedrick 9-23 (Same as: l 02:00: Tricor) 24 HR No Notes: Memoria Divalproex 9-23 (Same as: l Sodium 500 02:00: Depakote Her andujar MG Extended 00 ER) Once Release daily Tablet dosing; indicated for migraines. Divalproex sodium extended-r elease tab. Do not chew or crush. "Do Not Crush" Trazodone No Notes: Memori a 9-23 (Same As: l 02:00: Desyrel) Risperidone No Notes: David cedrick 9-23 (Same as: l 02:00: Risperdal) latanoprost No [...] cedrick 05-24 (Same as: l 02:00: Tricor) Mary Esther 00 24 HR No Notes: Memoria Divalproex [...] SEE Memoria 05-24 RT l 00:00: DOCUMENTAT Mary Esther 00 ION (Same as:Atroven t) Ipratropium No Notes: SEE Memoria 05-24 RT l 00:00: DOCUMENTAT Mary Esther 00 ION (Same as:Atroven t) Brimonidine No [...] 05-23 (Same as: l chloride 22:00: Zosyn) Mary Esther 0.9% INJ 00 Dosing 100 mL based [...] CDT Zosyn + No Notes: Memoria sodium - (Same as: l chloride 22:00: Zosyn) Mary Esther 0.9% INJ 00 Dosing 100 mL based [...] 05-23 (Same as: l chloride 22:00: Zosyn) Mary Esther 0.9% INJ 00 Dosing 100 mL based [...] with Aerosol - adapter Return to Pharmacy [facility] No 2.25 gm, Memoria 05-23 Route: IV, l 21:00: Q8H, Gómez 00 Dosing Weight 109.545, kg, Start date: 05/23/17 16:00:00 CDT, Duration: 30 day, Stop date: 06/22/17 8:00:00 CDT, ABX Indication : Intra-abdo jelly Infection Symbicort No Notes: Memori a 160/4.5 05-23 (Same as: l inhalation 21:00: Symbicort) H ermann aerosol 00 WASTE: with Aerosol - adapter Return to Pharmacy [facility] No 2.25 gm, Memoria 05-23 Route: IV, l 21:00: Q8H, Dosing Weight 109.545, kg, Start date: 05/23/17 16:00:00 CDT, Duration: 30 day, Stop date: 06/22/17 8:00:00 CDT, ABX Indication : Intra-abdo jelly Infection metoprolol No Notes: Memor ia tartrate 05-23 (Same as: l 19:00: Lopressor) metoprolol No Notes: Memor ia tartrate - (Same as: l 19:00: Lopressor) metoprolol No Notes: Memor ia tartrate - (Same as: l 19:00: Lopressor) Zosyn No [...] As: Ecotrin) Amlodipine No Notes: Memor ia 9- (Same as: l 18:00: Norvasc) Amiodarone No [...] 05-23 With food l 17:42: or milk Mary Esther 00 (Same as: Xanax) Alprazolam No Notes: Memor ia 05-23 With food l 17:42: or milk Mary Esther 00 (Same as: Xanax) Insulin No 60 units) David cedrick Lispro 05-23 WASTE: F/P l 17:40: - Black; E - [facility] [employer] Stable for 28 days at room temperatur e. Expires in days from ____Date Dextrose No 12.5 gm, Memor ia 50% Syringe 05-23 25 mL, l 17:40: Route: Mary Esther 00 IVP, Drug Form: INJ, Dosing Weight 118.682, kg, PRN, PRN Blood Glucose Results, Start date: 05/23/17 12:40:00 CDT, Duration: 30 day, Stop date: 06/22/17 12:39:00 CDT Glucagon No 1 mg, Memoria 05-23 Route: IM, l 17:40: Drug form: Mary Esther 00 PDR/INJ, PRN, Dosing Weight 118.682, kg, [...] 05-23 Route: IM, l 17:40: Drug form: Mary Esther 00 PDR/INJ, PRN, Dosing Weight 118.682, kg, PRN Blood Glucose Results, Start date: 05/23/17 12:40:00 CDT, Duration: 30 day, Stop date: 06/22/17 12:39:00 CDT Insulin 2016-0 No 60 units) David cedrick Lispro 05-23 WASTE: F/P l 17:40: - Black; E G[place]mez 00 [facility] Trash Bin Stable for 28 days at room temperatur e. Expires in days from ____Date Dextrose 2017-0 No 12.5 gm, Memor ia 50% Syringe 05-23 25 mL, l 17:40: Route: Mary Esther IVP, Drug Form: INJ, Dosing Weight 118.682, kg, PRN, PRN Blood Glucose Results, Start date: 05/23/17 12:40:00 CDT, Duration: 30 day, Stop date: 06/22/17 12:39:00 CDT Glucagon 2016-0 No 1 mg, Memoria 05-23 Route: IM, l 17:40: Drug form: Mary Esther PDR/INJ, PRN, Dosing Weight 118.682, kg, PRN Blood Glucose Results, Start date: 05/23/17 12:40:00 CDT, Duration: 30 day, Stop date: 06/22/17 12:39:00 CDT Baclofen 2016-0 No Notes: Memoria 05-23 (Same As: l 17:15: Lioresal) Mary Esther 00 Baclofen 0 No Notes: Memoria 9-22 (Same As: l 17:15: Lioresal) G[place] Baclofen No Notes: Memoria 9-22 (Same As: l 17:15: Lioresal) G[place]me[place] 00 Aspirin 81 No 81 mg = 1 [...] 9-22 tab, PO, l Tablet 16:29: Daily, Mary Esther 00 tab, 0 Refill(s) 24 HR Yes 500 mg = 1 Memori a Divalproex 9-22 tab, PO, l Sodium 500 16:29: Bedtime, # H ermann MG Extended 00 30 tab, 0 Release Refill(s) Tablet Aspirin 81 No 81 mg = 1 Me moria MG Chewable 9-22 tab, PO, l Tablet 16:29: Daily, Mary Esther 00 tab, 0 Refill(s) 24 HR Yes [...] 9-22 (Same as: l chloride 16:00: Zosyn) Mary Esther 0.9% INJ 00 Dosing 100 mL based on Piperacill in component MEDICATION WASTE Product Size: 3375 mg Product Wasted: ___ mg Zosyn + No Notes: Memoria sodium 9-22 (Same as: l chloride 16:00: Zosyn) Mary Esther 0.9% INJ 00 Dosing 100 mL based [...] Zosyn + 2016- No Notes: Memoria sodium -22 (Same as: l chloride 15:21: Zosyn) [place] 0.9% INJ 00 Dosing 100 mL based on Piperacill in component MEDICATION WASTE Product Size: 3375 mg Product Wasted: ___ mg Morphine 2017-0 No 2 mg, 1 Memori a 9-22 mL, Route: l 14:57: IVP, Drug Mary Esther 00 form: SOLN, Q4H, Dosing Weight 109.545, kg, PRN Pain Score 7-10, Priority: STAT, Start date: 05/23/17 9:57:00 CDT, Stop date: 06/22/17 9:56:00 CDT Zofran 2016-0 No Notes: Memoria 05-23 (Same as: l 14:57: Zofran) Mary Esther 00 MEDICATION WASTE Product Size: 4 mg Product Wasted: ___ mg Morphine 2016-0 No 2 mg, 1 Memori a 9-22 mL, Route: l 14:57: IVP, Drug [place] 00 form: SOLN, Q4H, Dosing Weight 109.545, kg, PRN Pain Score 7-10, Priority: STAT, Start date: 05/23/17 9:57:00 CDT, Stop date: 06/22/17 9:56:00 CDT Zofran 2016-0 No Notes: Memoria -22 (Same as: l 14:57: Zofran) MEDICATION WASTE Product Size: 4 mg Product Wasted: ___ mg Morphine 2017-0 No 2 mg, 1 Memori a - mL, Route: l 14:57: IVP, Drug form: [...] Notes: Memoria 9-22 (Same l 11:10: as:MORPhin Mary Esther 00 e Sulfate) Morphine No Notes: Memoria 9-22 (Same l 11:10: as:MORPhin Mary Esther 00 e Sulfate) Morphine No Notes: Memoria 9-22 (Same l 11:10: as:MORPhin [place] 00 e Sulfate) Saline No Notes: Memoria Flush 0.9% 9-22 (Same as: l 11:09: BD Mary Esther 00 Posiflush) Saline No Notes: Memoria Flush 0.9% 9-22 (Same as: l 11:09: BD Mary Esther 00 Posiflush) Saline No Notes: Memoria Flush 0.9% 9-22 (Same as: l 11:09: BD [place] 00 Posiflush) tiotropium 2015-09 No Notes: Memor ia 0.018 09-28 (Same As: l MG/ACTUAT 15:00: Spiriva). Her andujar Inhalant 00 Powder [Spiriva] One-A-Day 2015-09 No 1 tab, Memori a Men 50 Plus 09-28 Route: PO, l 15:00: Dosing [place] Weight 109.545, kg, Daily, Start date: 07/29/16 9:00:00 STATEMENT CLERKS MANAGER, Duration: 30 day, Stop date: 08/27/16 9:00:00 STATEMENT CLERKS MANAGER Aspirin 2015-09 No 81 mg, Memoria 09-28 Route: PO, l 15:00: Daily, [place] 00 Dosing Weight 109.545, kg, Start date: 07/29/16 9:00:00 STATEMENT CLERKS MANAGER, Duration: 30 day, Stop date: 08/27/16 9:00:00 STATEMENT CLERKS MANAGER tiotropium 2015-09 No Notes: Memor ia 0.018 09-28 (Same As: l MG/ACTUAT 15:00: Spiriva). Her andujar Inhalant 00 Powder [Spiriva] One-A-Day 2015-09 No 1 tab, Memori a Men 50 Plus 09-28 Route: PO, l 15:00: Dosing Weight 109.545, kg, Daily, Start date: 07/29/16 9:00:00 STATEMENT CLERKS MANAGER, Duration: 30 day, Stop date: 08/27/16 9:00:00 STATEMENT CLERKS MANAGER Aspirin 2015-09 No 81 mg, Memoria 09-28 Route: PO, l 15:00: Daily, Dosing Weight 109.545, kg, Start date: 07/29/16 9:00:00 STATEMENT CLERKS MANAGER, Duration: 30 day, Stop date: 08/27/16 9:00:00 STATEMENT CLERKS MANAGER tiotropium 2015-09 No Notes: Memor ia 0.018 09-28 (Same As: l MG/ACTUAT 15:00: Spiriva). Her andujar Inhalant 00 Powder [Spiriva] One-A-Day 2015-09 No 1 tab, Memori a Men 50 Plus 09-28 Route: PO, l 15:00: Dosing Weight 109.545, kg, Daily, Start date: 07/29/16 9:00:00 STATEMENT CLERKS MANAGER, Duration: 30 day, Stop date: 08/27/16 9:00:00 STATEMENT CLERKS MANAGER Aspirin 2015-09 No 81 mg, Memoria 09-28 Route: PO, l 15:00: Daily, Dosing Weight 109.545, kg, Start date: 07/29/16 9:00:00 STATEMENT CLERKS MANAGER, Duration: 30 day, Stop date: 08/27/16 9:00:00 STATEMENT CLERKS MANAGER Levemir 2015-09 No Notes: Memoria FlexPen 09-28 [...] 2015-09 No 30 unit, Memori a Glargine 1-28 Route: l 100 UNT/ML 03:00: SUB-Q, Padmini nn Injectable 00 Drug form: Solution SOLN, [Lantus] Bedtime, Dosing Weight 109.545, kg, Start date: 07/28/16 21:00:00 STATEMENT CLERKS MANAGER, Duration: 30 day, Stop date: 08/26/16 21:00:00 STATEMENT CLERKS MANAGER Levemir 2015-09 No Notes: Memoria FlexPen - Same as l 03:00: Levemir Do not hold insulin without contacting prescriber WASTE: F/P - Black; E - Municipal Trash Bin "single patient use only" Trazodone 2015-09 No Notes: Memori a - (Same As: l 03:00: Desyrel) Risperidone 2015-09 [...] Weight 109.545, kg, Start date: 07/28/16 21:00:00 STATEMENT CLERKS MANAGER, Duration: 30 day, Stop date: 08/26/16 21:00:00 STATEMENT CLERKS MANAGER Levemir 2015-09 No Notes: Memoria FlexPen - Same as l 03:00: Levemir Do not hold insulin without contacting prescriber WASTE: F/P - Black; E - Municipal Trash Bin "single patient use only" Trazodone 2015-09 No Notes: Memori a -28 (Same As: l 03:00: Desyrel) [place] Risperidone 2015-09 No Notes: David cedrick -28 (Same as: l 03:00: Risperdal) [place] latanoprost 2015-09 No Notes: David cedrick 0.05 MG/ML 09-28 Keep l Ophthalmic 03:00: refrigerat H ermann Solution 00 ed. (Same as:Xalatan ) Insulin 2015-09 No 30 unit, Memori a Glargine 09-28 Route: l 100 UNT/ML 03:00: SUB-Q, Padmini nn Injectable 00 Drug form: Solution SOLN, [Lantus] Bedtime, Dosing Weight 109.545, kg, Start date: 07/28/16 21:00:00 STATEMENT CLERKS MANAGER, Duration: 30 day, Stop date: 08/26/16 21:00:00 STATEMENT CLERKS MANAGER Docusate 2015-09 No Notes: Memoria Sodium 100 -27 (Same as: l MG Oral 23:00: Colace) Mary Esther Capsule 00 (Do Not Crush) Brimonidine 2015-09 No Notes: David cedrick tartrate -27 (Same As: l 1.5 MG/ML 23:00: Alphagan) Her andujar Ophthalmic 00 Solution Betaxolol 2015-09 No 2 drp, Memori a 2.5 MG/ML 09-27 Route: l Ophthalmic 23:00: BOTH EYES, H ermann Suspension 00 BID, Drug [Betoptic form: S] SUSP, Start date: 07/28/16 17:00:00 STATEMENT CLERKS MANAGER, Duration: 30 day, Stop date: 08/27/16 9:00:00 STATEMENT CLERKS MANAGER timolol 2015-09 No Notes: Memoria ophthalmic -27 (Same As: l 23:00: Timoptic, Gmóez 00 Betimol) Docusate 2015-09 No Notes: Memoria Sodium 100 -27 (Same as: l MG Oral 23:00: Colace) Mary Esther Capsule 00 (Do Not Crush) Brimonidine 2015-09 No Notes: David cedrick tartrate -27 (Same As: l 1.5 MG/ML 23:00: Alphagan) Her andujar Ophthalmic 00 Solution Betaxolol 2015-09 No 2 drp, Memori a 2.5 MG/ML 09-27 Route: l Ophthalmic 23:00: BOTH EYES, H ermann Suspension 00 BID, Drug [Betoptic form: S] SUSP, Start date: 07/28/16 17:00:00 STATEMENT CLERKS MANAGER, Duration: 30 day, Stop date: 08/27/16 9:00:00 STATEMENT CLERKS MANAGER timolol 2015-09 No Notes: Memoria ophthalmic -27 (Same As: l 23:00: Timoptic, Gómez 00 [...] form: S] SUSP, Start date: 07/28/16 17:00:00 STATEMENT CLERKS MANAGER, Duration: 30 day, Stop date: 08/27/16 9:00:00 STATEMENT CLERKS MANAGER timolol 2015-09 No Notes: Memoria ophthalmic 09-27 (Same As: l 23:00: Timoptic, [place] Betimol) Buspirone 2015-09 No Notes: Memori a - (Same As: l 21:00: BuSpar) Buspirone 2015-09 No Notes: Memori a -27 (Same As: l 21:00: BuSpar) [place] 00 Buspirone 2015-09 No Notes: Memori a -27 (Same As: l 21:00: BuSpar) Mary Esther 00 Ipratropium 2015-09 No 500 Memori a 1-27 microgram, l 19:00: Route: Mary Esther 00 NEB, QID, Dosing Weight 109.545, kg, Start date: 07/28/16 13:00:00 STATEMENT CLERKS MANAGER, Duration: 30 day, Stop date: 08/27/16 9:00:00 STATEMENT CLERKS MANAGER Alprazolam 2015-09 No 0.5 mg, David cedrick 09-27 Route: PO, l 19:00: TID, Góme[place] Dosing Weight 109.545, kg, Start date: 07/28/16 13:00:00 STATEMENT CLERKS MANAGER, Duration: 30 day, Stop date: 08/27/16 9:00:00 STATEMENT CLERKS MANAGER Ipratropium 2015-09 No 500 Memori a 1-27 microgram, l 19:00: Route: Mary Esther NEB, QID, Dosing Weight 109.545, kg, Start date: 07/28/16 13:00:00 STATEMENT CLERKS MANAGER, Duration: 30 day, Stop date: 08/27/16 9:00:00 STATEMENT CLERKS MANAGER Alprazolam 2015-09 No 0.5 mg, David cedrick 1-27 Route: PO, l 19:00: TID, [place] 00 Dosing Weight 109.545, kg, Start date: 07/28/16 13:00:00 STATEMENT CLERKS MANAGER, Duration: 30 day, Stop date: 08/27/16 9:00:00 STATEMENT CLERKS MANAGER Ipratropium 2015-09 No 500 Memori a 1-27 microgram, l 19:00: Route: Mary Esther 00 NEB, QID, Dosing Weight 109.545, kg, Start date: 07/28/16 13:00:00 STATEMENT CLERKS MANAGER, Duration: 30 day, Stop date: 08/27/16 9:00:00 STATEMENT CLERKS MANAGER Alprazolam 2015-09 No 0.5 mg, David cedrick 27 Route: PO, l 19:00: TID, Mary Esther Dosing Weight 109.545, kg, Start date: 07/28/16 13:00:00 STATEMENT CLERKS MANAGER, Duration: 30 day, Stop date: 08/27/16 9:00:00 STATEMENT CLERKS MANAGER Thyroxine 2015-09 No Notes: Memori a 1-27 Take 1 l 17:30: hour Mary Esther 00 before or 2 hours after meal; Enteral feeds may interefere with the absorption of this medication .(Same as:Levothr oid, Synthroid) Thyroxine 2015-09 No Notes: Memori a 1-27 Take 1 l 17:30: hour Mary Esther 00 before or 2 hours after meal; Enteral feeds may interefere with the absorption of this medication .(Same as:Levothr oid, Synthroid) Thyroxine 2015-09 No Notes: Memori a 1-27 Take 1 l 17:30: hour Mary Esther 00 before or 2 hours after meal; Enteral feeds may interefere with the absorption of this medication .(Same as:Levothr oid, Synthroid) multivitami 2015-09 No Notes: David cedrick n with 27 Give with l minerals 17:00: food. Gómez 00 (Same As: Stress 600 with Zinc) WASTE: F/P - Black; E - Municipal Trash Bin omega-3 2015-09 No Notes: Memoria polyunsatur 09-27 (Same as: l ated fatty 17:00: Lovaza, Herm deepa acids 00 formally named [place]) "Do Not Crush" Lisinopril 2015-09 No Notes: Memor ia 09-27 (Same as: l 17:00: Prinivil, [place] Zestril) metoprolol 2015-09 No Notes: Memor ia [...] ia 09-27 (Same as: l 17:00: Prinivil, Mary Esther Zestril) metoprolol 2015-09 No Notes: Memor ia [...] ia 09-27 (Same as: l 17:00: Prinivil, Zestril) metoprolol 2015-09 No Notes: Memor ia [...] Blood Glucose Results, Start date: 07/28/16 10:01:00 STATEMENT CLERKS MANAGER, Duration: 30 day, Stop date: 08/27/16 10:00:00 STATEMENT CLERKS MANAGER Glucagon 2015-09 No 1 mg, Memoria 09-27 Route: IM, l 16:01: Drug form: Góme[place] 00 PDR/INJ, PRN, Dosing Weight 109.545, kg, PRN Blood Glucose Results, Start date: 07/28/16 10:01:00 STATEMENT CLERKS MANAGER, Duration: 30 day, Stop date: 08/27/16 10:00:00 STATEMENT CLERKS MANAGER Insulin, 2015-09 No Notes: Memoria Aspart, - Roll in l Human 16:01: palms of Góme[place] 00 hands gently; Do not shake vigorously . (Same as: NovoLOG) "single patient use only" WASTE: F/P - Black; E - Municipal Trash Bin Stable for 28 days at room temperatur e. Expires in days from ____Date Dextrose 2015-09 No 12.5 gm, Memor ia 50% Syringe 1-27 25 mL, l 16:01: Route: Mary Esther 00 IVP, Drug Form: INJ, Dosing Weight 109.545, kg, PRN, PRN Blood Glucose Results, Start date: 07/28/16 10:01:00 STATEMENT CLERKS MANAGER, Duration: 30 day, Stop date: 08/27/16 10:00:00 STATEMENT CLERKS MANAGER Glucagon 2015-09 No 1 mg, Memoria 09-27 Route: IM, l 16:01: Drug form: [place] 00 PDR/INJ, PRN, Dosing Weight 109.545, kg, PRN Blood Glucose Results, Start date: 07/28/16 10:01:00 STATEMENT CLERKS MANAGER, Duration: 30 day, Stop date: 08/27/16 10:00:00 STATEMENT CLERKS MANAGER Insulin, 2015-09 No Notes: Memoria Aspart, - Roll in l Human 16:01: palms of Mary Esther 00 hands gently; Do not shake vigorously [...] Blood Glucose Results, Start date: 07/28/16 10:01:00 STATEMENT CLERKS MANAGER, Duration: 30 day, Stop date: 08/27/16 10:00:00 STATEMENT CLERKS MANAGER Glucagon 2015-09 No 1 mg, Memoria 127 Route: IM, l 16:01: Drug form: Mary Esther 00 PDR/INJ, PRN, Dosing Weight 109.545, kg, PRN Blood Glucose Results, Start date: 07/28/16 10:01:00 STATEMENT CLERKS MANAGER, Duration: 30 day, Stop date: 08/27/16 10:00:00 STATEMENT CLERKS MANAGER Enoxaparin 2015-09 No Notes: Memor ia 1- (Same as: l 16:00: Lovenox) Enoxaparin 2015-09 No Notes: Memor ia - (Same as: l 16:00: Lovenox) Enoxaparin 2015-09 No Notes: Memor ia - (Same as: l 16:00: Lovenox) Baclofen 2015-09 No Notes: Memoria - (Same As: l 15:58: Lioresal) Baclofen 2015-09 No Notes: Memoria - (Same As: l 15:58: Lioresal) Baclofen 2015-09 No Notes: Memoria 1- (Same As: l 15:58: Lioresal) Saline 2015-09 No Notes: Memoria Flush 0.9% 1-27 (Same as: l 15:00: BD Mary Esther 00 Posiflush) aspirin 81 2015-09 No Notes: [...] 0.9% 1-27 (Same as: l 15:00: BD Mary Esther 00 Posiflush) aspirin 81 2015-09 No Notes: Do Me moria mg tablet, -27 not crush l enteric 15:00: or chew. Rudy n coated 00 (Same As: Ecotrin) Famotidine 2015-09 No Notes: Memor ia 1-27 (Same as: l 15:00: Pepcid) Mary Esther 00 Alprazolam 2015-09 No Notes: Memor ia 0.5 MG Oral 1-27 With food l Tablet 14:20: or milk Mary Esther [Xanax] 00 (Same as: Xanax) Alprazolam 2015-09 No Notes: Memor ia 0.5 MG Oral 1-27 With food l Tablet 14:20: or milk Mary Esther [Xanax] 00 (Same as: Xanax) Alprazolam 2015-09 No Notes: Memor ia 0.5 MG Oral 1-27 With food l Tablet 14:20: or milk Mary Esther [Xanax] 00 (Same as: Xanax) Saline 2015-09 No Notes: Memoria Flush 0.9% -27 (Same as: l 07:29: BD Mary Esther 00 Posiflush) Ondansetron 2015-09 No Notes: David cedrick 09-27 (Same as: l 07:29: Zofran) Gómez 00 MEDICATION WASTE Product Size: 4 mg Product Wasted: ___ mg Sodium 2015-09 No 1,000 mL, Memori a Chloride - Rate: 40 l 0.154 07:29: ml/hr, Mary Esther MEQ/ML 00 Infuse Injectable over: 25 Solution hr, Route: IV, Dosing Weight 97.273 kg, Total Volume: 1,000, Start date: 07/28/16 1:29:00 STATEMENT CLERKS MANAGER, Stop date: 08/27/16 1:28:00 STATEMENT CLERKS MANAGER Saline 2015-09 No Notes: Memoria Flush 0.9% 1-27 (Same as: l 07:29: BD Mary Esther 00 Posiflush) Ondansetron 2015-09 No Notes: David cedrick 09-27 (Same as: l 07:29: Zofran) Gómez 00 MEDICATION WASTE Product Size: 4 mg Product Wasted: ___ mg Sodium 2015-09 No 1,000 mL, Memori a Chloride -27 Rate: 40 l 0.154 07:29: ml/hr, Mary Esther MEQ/ML 00 Infuse Injectable over: 25 Solution hr, Route: IV, Dosing Weight 97.273 kg, Total Volume: 1,000, Start date: 07/28/16 1:29:00 STATEMENT CLERKS MANAGER, Stop date: 08/27/16 1:28:00 STATEMENT CLERKS MANAGER Saline 2015-09 No Notes: Memoria Flush 0.9% 09-27 (Same as: l 07:29: BD Mary Esther Posiflush) Ondansetron 2015-09 No Notes: David cedrick - (Same as: l 07:29: Zofran) Gómez 00 MEDICATION WASTE Product Size: 4 mg Product Wasted: ___ mg Sodium 2015-09 No 1,000 mL, Memori a Chloride 09-27 Rate: 40 l 0.154 07:29: ml/hr, Góme[place] MEQ/ML 00 Infuse Injectable over: 25 Solution hr, Route: IV, Dosing Weight 97.273 kg, Total Volume: 1,000, Start date: 07/28/16 1:29:00 STATEMENT CLERKS MANAGER, Stop date: 08/27/16 1:28:00 STATEMENT CLERKS MANAGER Aspirin 2015-09 No Notes: Memoria 1-27 Take with l 05:47: food. Mary Esther Aspirin 2015-09 No Notes: Memoria 1-27 Take with l 05:47: food. [place] Aspirin 2015-09 No Notes: Memoria 1-27 Take with l 05:47: food. Gómez 00 Sodium No 1,000 mL, Memori a Chloride 05-30 1,000 l 0.154 15:49: ml/hr, Mary Esther MEQ/ML 00 Infuse Injectable Over: 1 Solution [...] e 6-20 Tablet l 14:00: should not Mary Esther 00 be chewed or crushed. (Same as: Protonix) Fenofibrate No 200 mg, Mem oria 6-20 Route: PO, l 14:00: Daily, Mary Esther 00 Dosing Weight 120, kg, Start date: [...] a 6-20 Take 1 l 11:30: hour Mary Esther 00 before or 2 hours after meal; [...] 6-20 With food l 06:01: or milk Mary Esther 00 (Same as: Xanax) Alprazolam No Notes: Memor ia 6-20 With food l 06:01: or milk Gómez 00 (Same as: Xanax) Alprazolam No Notes: Memor ia 6-20 With food l 06:01: or milk Mary Esther 00 (Same as: Xanax) TriCor No Notes: Memoria 6-20 (Same as: l 02:00: Tricor) G[place] 00 Risperidone No Notes: David cedrick 6-20 (Same as: l 02:00: Risperdal) Mary Esther 00 Lisinopril No Notes: Memor ia 6-20 (Same as: l 02:00: Prinivil, [place] Zestril) latanoprost No Notes: David cedrick 0.05 MG/ML 6-20 Keep l Ophthalmic 02:00: refrigerat H ermann Solution 00 ed. (Same as:Xalatan ) Lantus No 30 unit, Memoria 6-20 Route: l 02:00: SUB-Q, Gómez 00 Bedtime, Dosing Weight 120, kg, Start date: 02/17/15 21:00:00, Duration: 30 day, Stop date: 03/18/15 21:00:00 Levemir No Notes: Memoria FlexPen 6-20 Same as l 02:00: Levemir Do Mary Esther 00 not hold insulin without contacting prescriber "single patient use only" Saline No Notes: Memoria Flush 0.9% 6-20 (Same as: l 02:00: BD Mary Esther 00 Posiflush) Docusate No Notes: Memoria 6-20 (Same as: l 02:00: Colace) G[place] 00 (Do Not Crush) TriCor No Notes: [...] unit, Memoria 6-20 Route: l 02:00: SUB-Q, Mary Esther 00 Bedtime, Dosing Weight 120, kg, Start date: 02/17/15 21:00:00, Duration: 30 day, Stop date: 03/18/15 21:00:00 Levemir No Notes: Memoria FlexPen 6-20 Same as l 02:00: Levemir Do G[place] 00 not hold insulin without contacting prescriber "single patient use only" Saline No Notes: Memoria Flush 0.9% 6-20 (Same as: l 02:00: BD Mary Esther 00 Posiflush) Docusate No Notes: Memoria 6-20 (Same as: l 02:00: Colace) G[place] 00 (Do Not Crush) TriCor No Notes: Memoria 6-20 (Same as: l 02:00: Tricor) G[place] 00 Risperidone No Notes: David cedrick 6-20 (Same as: l 02:00: Risperdal) [place] Lisinopril No Notes: Memor ia 6-20 (Same as: l 02:00: Prinivil, Mary Esther 00 Zestril) latanoprost No Notes: David cedrick 0.05 MG/ML 6-20 Keep l Ophthalmic 02:00: refrigerat H ermann Solution 00 ed. (Same as:Xalatan ) Lantus No 30 unit, Memoria 6-20 Route: l 02:00: SUB-Q, Mary Esther Bedtime, Dosing Weight 120, kg, Start date: 02/17/15 21:00:00, Duration: 30 day, Stop date: 03/18/15 21:00:00 Levemir No Notes: Memoria FlexPen 6-20 Same as l 02:00: Levemir Do Mary Esther 00 not hold insulin without contacting prescriber "single patient use only" Saline No Notes: Memoria Flush 0.9% 6-20 (Same as: l 02:00: BD Mary Esther Posiflush) Docusate No Notes: Memoria 6-20 (Same [...] Chloride 6-20 1,000 l 0.154 00:00: ml/hr, Mary Esther MEQ/ML 00 Infuse Injectable Over: 1 Solution hr, Route: IV, ONCE, Priority: STAT, Dosing Weight 120 kg, Start date: 02/17/15 19:00:00, Duration: 1 doses or times, Stop date: 02/17/15 19:00:00 Albuterol No Notes: Memori a 0.833 MG/ML 6-20 (Same as: l / :00: Duoneb) Mary Esther Ipratropium 00 Jeffers 0.167 MG/ML Inhalant Solution Sodium No 1,000 mL, Memori a Chloride 6-20 1,000 l 0.154 00:00: ml/hr, Mary Esther MEQ/ML 00 Infuse Injectable Over: 1 Solution hr, Route: IV, ONCE, Priority: STAT, Dosing Weight 120 kg, Start date: 02/17/15 19:00:00, Duration: 1 doses or times, Stop date: 02/17/15 19:00:00 Albuterol 0 No Notes: Memori a 0.833 MG/ML 6-20 (Same as: l / :00: Duoneb) Mary Esther Ipratropium 00 Jeffers 0.167 MG/ML Inhalant Solution Sodium No 1,000 [...] as: l / 00:00: Duoneb) Ipratropium 00 Jeffers 0.167 MG/ML Inhalant Solution Lactulose No Notes: Memori a 6-19 (Same l 23:00: as:Chronul Mary Esther ac) Lactulose No Notes: Memori a 6-19 (Same l 23:00: as:Chronul [place] ) Lactulose No Notes: Memori a 6-19 (Same l 23:00: as:Chronul Mary Esther ac) Enoxaparin No Notes: Memor ia 6-19 [...] Colace) [place] capsule 00 (Do Not Crush) Enoxaparin No [...] Colace) G[place] capsule 00 (Do Not Crush) Enoxaparin No [...] cedrick 6-19 (Same As: l 22:00: Effexor) Mary Esther 00 Januvia No Notes: Memoria 6-19 (Same [...] 6-19 (Same as: l Sodium 21:37: K Mary Esther Chloride 00 Phosphate. 0.9% IV 250 ) 1 mMol mL phoshate has 1.47 mEq potassium Infuse over 4 hours sodium No Special Memoria phosphate + 6-19 Instructio l Sodium 21:37: ns: FOR Mary Esther Chloride ICU USE 0.9% IV 250 ONLY [...] as: l 21:37: Mag-Ox 400) Magnesium oxide [id number] g elemental magnesium Dose=____m g magnesium oxide [...] as: l / 21:37: Duoneb) Ipratropium 00 Jeffers 0.167 MG/ML Inhalant Solution Bisacodyl No Notes: Memori a 6-19 (Same As: l 21:37: Dulcolax, Bisco-Lax) Acetaminoph No Notes: Do M emoria en 02-17 not exceed l 21:37: 4 gm/day. Gómez 00 (Same as: Tylenol) potassium No Notes: Memori a phosphate + 6-19 (Same as: l Sodium 21:37: K Mary Esther Chloride 00 Phosphate. 0.9% IV 250 ) 1 mMol mL phoshate has 1.47 mEq potassium Infuse over 4 hours sodium No Special Memoria phosphate + 6-19 Instructio l Sodium 21:37: ns: FOR Mary Esther Chloride 00 ICU USE 0.9% IV 250 ONLY mL potassium No Notes: Memori a phosphate + 6-19 (Same as: l Sodium 21:37: K Mary Esther Chloride 00 Phosphate. 0.9% IV 250 ) 1 mMol mL phoshate has 1.47 mEq potassium Infuse over 4 hours sodium No Special Memoria phosphate + 6-19 Instructio l Sodium 21:37: ns: FOR [place] Chloride 00 ICU USE 0.9% IV 250 ONLY mL potassium No Notes: Memori a chloride 02-17 (Same as: l 21:37: Potassium Mary Esther 00 Chloride) Calcium No Notes: Memoria Carbonate 02-17 (Same As: l 500 MG 21:37: Tums) Mary Esther Chewable 00 Calcium Tablet Carbonate 500 mg = 200 mg elemental calcium Dose = mg calcium carbonate ( mg elemental calcium) Magnesium No Notes: Memori a Oxide 02-17 (Same as: l 21:37: Mag-Ox Mary Esther 00 400) Magnesium oxide 117po=136u g elemental magnesium Dose=____m g magnesium oxide (___mg elemental magnesium) Calcium No Special [facility] Gluconate 19 Instructio l 21:37: ns: FOR Mary Esther 00 ICU USE ONLY Neutra-Phos No Notes: David cedrick - (Same as: l 21:37: Neutra-Bhupinder Góme[place] 00 s) Each 1.25 gm pkt has 250mg phosphorou s. Mix w/2.5oz water and stir. Magnesium No Special Memor ia Sulfate 02-17 Instructio l 21:37: ns: FOR [place] 00 ICU USE ONLY Saline No Notes: Memoria Flush 0.9% 02-17 (Same as: l 21:37: BD [place] Posiflush) Glucose 50 No 1,000 mL, Me moria MG/ML / 02-17 Rate: 125 l Sodium 21:37: ml/hr, Mary Esther Chloride Infuse 0.0769 over: 8 MEQ/ML hr, Route: Injectable IV, Dosing Solution Weight 120 kg, Total Volume: 1,000, Start date: 02/17/15 16:37:00, Duration: 30 day, Stop date: 03/19/15 16:36:00 potassium No Notes: Memori a chloride 02-17 (Same as: l 21:37: Potassium [place] 00 Chloride) Albuterol No Notes: Memori a 0.833 MG/ML 02-17 (Same as: l / 21:37: Duoneb) Mary Esther Ipratropium 00 Jeffers 0.167 MG/ML Inhalant Solution Bisacodyl No Notes: Memori a 02-17 (Same As: l 21:37: Dulcolax, Mary Esther Bisco-Lax) Acetaminoph No Notes: Do M emoria en 02-17 not exceed l 21:37: 4 gm/day. [place] (Same as: Tylenol) Calcium No Notes: Memoria Carbonate 02-17 (Same As: l 500 MG 21:37: Tums) Mary Esther Chewable 00 Calcium Tablet Carbonate 500 mg = 200 mg elemental calcium Dose = mg calcium carbonate ( mg elemental calcium) Magnesium No Notes: Memori a Oxide 02-17 (Same as: l 21:37: Mag-Ox Mary Esther 00 400) Magnesium oxide 173yn=361n g elemental magnesium Dose=____m g magnesium oxide (___mg elemental magnesium) Calcium No Special [facility] Gluconate 02-17 Instructio l 21:37: ns: FOR [place] [facility] USE ONLY Neutra-Phos No Notes: David cedrick - (Same as: l 21:37: Neutra-Bhupinder [place] 00 s) Each 1.25 gm pkt has 250mg phosphorou s. Mix w/2.5oz water and stir. Magnesium No Special Memor ia Sulfate -19 Instructio l 21:37: ns: FOR [place] [facility] USE ONLY Saline No Notes: Memoria Flush 0.9% -19 (Same as: l 21:37: BD [place] Posiflush) Glucose 50 No 1,000 mL, Me moria MG/ML / 6-19 Rate: 125 l Sodium 21:37: ml/hr, [place] Chloride Infuse 0.0769 over: 8 MEQ/ML hr, Route: Injectable IV, Dosing Solution Weight 120 kg, Total Volume: 1,000, Start date: 02/17/15 16:37:00, Duration: 30 day, Stop date: 03/19/15 16:36:00 Albuterol No Notes: Memori a 0.833 MG/ML -19 (Same as: l / 21:37: Duoneb) [place] Ipratropium 00 [place] 0.167 MG/ML Inhalant Solution Bisacodyl No Notes: Memori a 6-19 (Same As: l 21:37: Dulcolax, [place] 00 Bisco-Lax) Acetaminoph No Notes: Do M [...] Memori a 6-19 Route: l 21:30: SUB-Q, [place] 00 TID-Before Meals, Dosing Weight 120, kg, [...] Memori a 6-19 Route: l 21:30: SUB-Q, [place] 00 TID-Before Meals, Dosing Weight 120, kg, [...] 6-19 100 mL, l 16:07: Route: IV, [place] 00 Drug form: INJ, ONCE, Dosing Weight 127.273, kg, Start date: 02/17/15 11:07:00, Stop date: 02/17/15 11:07:00 Keppra 2015-0 No 1,000 mg, Memori a 6-19 100 mL, l 16:07: Route: IV, [place] 00 Drug form: INJ, ONCE, Dosing Weight 127.273, kg, Start date: 02/17/15 11:07:00, Stop date: 02/17/15 11:07:00 Keppra 2014- No 1,000 mg, Memori a 6-19 100 mL, l 16:07: Route: IV, [place] 00 Drug form: INJ, ONCE, Dosing Weight 127.273, kg, Start date: 02/17/15 11:07:00, Stop date: 02/17/15 11:07:00 Ativan 2014-0 No 1 mg, Memoria 6-19 Route: l 16:06: IVP, Drug Mary [place] 00 form: INJ, ONCE, Dosing Weight 127.273, kg, Priority: STAT, Start date: 02/17/15 11:06:00, Stop date: 02/17/15 11:06:00 Ativan 2014-0 No 1 mg, Memoria 6-19 Route: l 16:06: IVP, Drug [place] 00 form: INJ, ONCE, Dosing Weight 127.273, [...] tab, PO, l tablet 15:48: Daily, 0 [place] 00 Refill(s) latanoprost Yes 1 drp, David [...] a 6-19 microgram, l 15:45: NEB, QID, [place] 00 0 Refill(s) Humalog 2014-0 Yes 10 unit, Memori a 6-19 SUB-Q, l 15:44: TID-Before [place] 00 Meals, 0 Refill(s) Lantus 2014-0 Yes 30 unit, [facility] 6-19 SUB-Q, l 15:44: Bedtime, 0 [place] 00 Refill(s) Humalog 2014-0 Yes 10 unit, Memori a 6-19 SUB-Q, l 15:44: TID-Before [place] 00 Meals, 0 Refill(s) Lantus Yes 30 unit, Mem[facility] 6-19 SUB-Q, l 15:44: Bedtime, 0 [place] 00 Refill(s) Humalog Yes 10 unit, Memori [...] tab, PO, l tablet 15:43: TID, 0 [place] 00 Refill(s) busPIRone 5 Yes 5 mg [...] tab, PO, l tablet 15:42: Daily, 0 [place] 00 Refill(s) venlafaxine Yes 75 mg = [...] PO, l mg oral 15:34: BID, 0 [place] capsule 00 Refill(s) docusate Yes 200 mg = 2 Mem oria sodium 100 6-19 cap, PO, l mg oral 15:34: BID, 0 [place] capsule 00 Refill(s) docusate Yes 200 mg = 2 Mem oria sodium 100 6-19 cap, PO, l mg oral 15:34: BID, 0 [place] capsule 00 Refill(s) Saline No Notes: [facility] Flush 0.9% 6-19 (Same as: l 14:43: BD [place] 00 Posiflush) Saline No Notes: [facility] Flush 0.9% 6-19 (Same as: l 14:43: BD [place] 00 Posiflush) Saline No Notes: [facility] Flush 0.9% 6-19 (Same as: l 14:43: BD [place] 00 Posiflush) Naloxone No Notes: Memoria 6-19 Same as l 14:41: Narcan [place] 00 Naloxone No Notes: [facility] 6-19 Same as l 14:41: Narcan [place] 00 Naloxone No Notes: [facility]oria 6-19 Same as l 14:41: Narcan [place] 00 Albuterol 2013-09 Yes 3 ml, Memoria 0.833 MG/ML 0-11 INHALATION l / 17:55: , QID, # [place] Ipratropium 00 60 ea, 0 [place] Refill(s) 0.167 MG/ML Inhalant Solution [DuoNeb] {2013-09 Yes Special Memoria (Methylpred 0-11 Instructio l nisolone 4 17:55: ns: Take Her andujar MG Oral 00 with or Tablet without [Medrol]) } food Pack [Medrol Dosepak] Doxycycline 2013-09 Yes 100 mg = 1 Memoria 100 MG Oral 0-11 cap, PO, l Capsule 17:55: [id number], # Herm deepa 00 14 cap, 0 Refill(s) Albuterol 2013-09 Yes 3 ml, Memoria 0.833 MG/ML 0-11 INHALATION l / 17:55: , QID, # [place] Ipratropium 00 60 ea, 0 [place] Refill(s) 0.167 MG/ML Inhalant Solution [DuoNeb] {2013-09 Yes Special [facility] (Methylpred 0-11 Instructio l nisolone 4 17:55: ns: Take Her andujar MG Oral 00 with or Tablet without [Medrol]) } food Pack [Medrol Dosepak] Doxycycline 2013-09 Yes 100 mg = 1 Memoria 100 MG Oral 0-11 cap, PO, l Capsule 17:55: [id number], # Herm deepa 00 14 cap, 0 Refill(s) Albuterol 2013-09 Yes 3 ml, Memoria 0.833 MG/ML 0-11 INHALATION l / 17:55: , QID, # [place] Ipratropium 00 60 ea, 0 [place] Refill(s) 0.167 MG/ML Inhalant Solution [DuoNeb] {2013-09 Yes Special [facility] (Methylpred 0-11 Instructio l nisolone 4 17:55: ns: Take Her andujar MG Oral 00 with or Tablet without [Medrol]) } food Pack [Medrol Dosepak] Doxycycline 2013-09 Yes 100 mg = 1 Memoria 100 MG Oral 0-11 cap, PO, l Capsule 17:55: [id number], # Herm deepa 00 14 cap, 0 [...] n 0-10 Same as: l 04:00: Zithromax [place] 00 Azithromyci 2013-09 No Notes: David cedrick n 0-10 Same as: l 04:00: Zithromax [place] 00 Azithromyci 2013-09 No Notes: David cedrick n 0-10 Same as: l 04:00: Zithromax [place] 00 Fenofibrate 2013-09 No Notes: David cedrick 0-10 (Same as: l 02:00: Tricor) [place] Fenofibrate 2013-09 No Notes: David cedrick 0-10 (Same as: l 02:00: Tricor) [place] 00 Fenofibrate 2013-09 No Notes: David cedrick 0-10 (Same as: l 02:00: Tricor) [place] Effexor XR 2013-09 No Notes: Do Me [...] 14:00: Fluzone Rudy n Inactivated 00 Quadrivale A-[place]- nt) (H3N2)-like virus (A-[place] [facility] X-175C) strain / Influenza Virus Vaccine, Inactivated A-[place]- 59, IVR-148 (H1N1) strain / Influenza Virus Vaccine, Inactivated , B-- -2005-lik Furosemide 2013-09 No Notes: Memor ia 0-09 (Same as: l 14:00: Lasix) May [place] 00 cause GI upset. Give with food or milk. Docusate 2013-09 No Notes: Memoria 0-09 (Same as: l 14:00: Colace) [place] 00 (Do Not Crush) Vitamin D3 2013-09 No Notes: Memor ia 0-09 Same as l 14:00: Vitamin D3 [place] 00 aspirin 2013-09 No Notes: Memoria 0-09 Take with l 14:00: food. [place] Amlodipine 2013-09 No Notes: Memor ia 0-09 (Same as: l 14:00: Norvasc) [place] Amiodarone 2013-09 No Notes: Memor ia 0-09 (Same as: l 14:00: Cordarone) [place] Alprazolam 2013-09 No Notes: Memor ia 0-09 With food l 14:00: or milk [place] 00 (Same as: Xanax) Effexor XR 2013-09 No Notes: Do Me moria 0-09 not open, l 14:00: crush, or [place] 00 chew. (Same As: Effexor XR) One-A-Day 2013-09 No Notes: Memori a Men 50 Plus 0-09 Give with l 14:00: food. [place] 00 (Same As: Stress 600 with Zinc) Influenza 2013-09 No Notes: Memori a Virus 0-09 (Same as: l Vaccine, 14:00: Fluzone Rudy n Inactivated 00 Quadrivale A-[place]- nt) (H3N2)-like virus (A-[place] [facility] X-175C) strain / Influenza Virus Vaccine, Inactivated A-[place]- , IVR-148 (H1N1) strain / Influenza Virus [...] 0-09 Same as l 14:00: Vitamin D3 [place] 00 aspirin 2013-09 No Notes: Memoria 0-09 Take with l 14:00: food. [place] Amlodipine 2013-09 No Notes: Memor ia 0-09 (Same as: l 14:00: Norvasc) [place] Amiodarone 2013-09 No Notes: Memor ia 0-09 (Same as: l 14:00: Cordarone) [place] Alprazolam 2013-09 No Notes: Memor ia 0-09 With food l 14:00: or milk [place] 00 (Same as: Xanax) Effexor XR 2013-09 No Notes: Do Me moria 0-09 not open, l 14:00: crush, or [place] 00 chew. (Same As: Effexor XR) One-A-Day 2013-09 No Notes: Memori a Men 50 Plus 0-09 Give with l 14:00: food. [place] 00 (Same As: Stress 600 with Zinc) Influenza 2013-09 No Notes: Memori a Virus 0-09 (Same as: l Vaccine, 14:00: Fluzone Rudy n Inactivated 00 Quadrivale A-[place]- nt) (H3N2)-like virus (A-[place] [facility] X-175C) strain / Influenza Virus Vaccine, Inactivated A-[place]- , IVR-148 (H1N1) strain / Influenza Virus Vaccine, Inactivated , B---lik Furosemide 2013-09 No Notes: Memor ia 0-09 (Same as: l 14:00: Lasix) May [place] 00 cause GI upset. Give with food or milk. Docusate 2013-09 No Notes: Memoria 0-09 (Same as: l 14:00: Colace) [place] 00 (Do Not Crush) Vitamin D3 2013-09 No Notes: Memor ia 0-09 Same as l 14:00: Vitamin D3 [place] 00 aspirin 2013-09 No Notes: Memoria 0-09 Take with l 14:00: food. [place] 00 Amlodipine 2013-09 No Notes: Memor ia 0-09 (Same as: l 14:00: Norvasc) [place] 00 Amiodarone 2013-09 No Notes: Memor ia 0-09 (Same as: l 14:00: Cordarone) [place] Alprazolam 2013-09 No Notes: Memor ia 0-09 With food l 14:00: or milk Mary [place] 00 (Same as: Xanax) Enoxaparin 2013-09 No Notes: Memor ia 0-09 (Same as: l 13:00: Lovenox) [place] 00 Enoxaparin 2013-09 No Notes: Memor ia 0-09 (Same as: l 13:00: Lovenox) [place] 00 Enoxaparin 2013-09 No Notes: Memor ia [...] 0-09 (Same as: l / 08:00: Duoneb) [place] Ipratropium 00 Jeffers 0.167 MG/ML Inhalant Solution Albuterol 2013-09 No Notes: Memori a 0.833 MG/ML 0-09 (Same as: l / 08:00: Duoneb) [place] Ipratropium 00 [place] 0.167 MG/ML Inhalant Solution Albuterol 2013-09 No Notes: Memori a 0.833 MG/ML 0-09 (Same as: l / 08:00: Duoneb) [place] Ipratropium 00 [place] 0.167 MG/ML Inhalant Solution methylPREDN 2013-09 No Notes: David cedrick ISolone 0-09 (Same l SODium 05:00: as:Solu-ME Padmini nn SUCCinate 00 DROL, A-Methapre d) Doxycycline 2013-09 No Notes: NO M emoria 0-09 MILK/ANTAC l 05:00: IDS/IRON Mary [place] 00 Take 1 hour before or 2 hours after dairy products methylPREDN 2013-09 No Notes: David cerdick ISolone 0-09 (Same l SODium 05:00: as:Solu-ME Padmini nn SUCCinate 00 DROL, A-Methapre d) Doxycycline 2013-09 No Notes: NO M emoria 0-09 MILK/ANTAC l 05:00: IDS/IRON Mary Esther 00 Take 1 hour before or 2 hours after dairy products methylPREDN 2013-09 No Notes: David cedrick ISolone 0-09 (Same l SODium 05:00: as:Solu-ME Padmini nn SUCCinate 00 DROL, A-Methapre d) Doxycycline 2013-09 No Notes: NO M emoria 0-09 MILK/ANTAC l 05:00: IDS/IRON Mary Esther 00 Take 1 hour before or 2 hours after dairy products Levemir 2013-09 No Notes: Memoria 0-09 Same as l 04:45: Levemir [place] 00 "single patient use only" Levemir 2013-09 No Notes: Memoria 0-09 Same as l 04:45: Levemir [place] 00 "single patient use only" Levemir 2013-09 No Notes: Memoria 0-09 Same as l 04:45: Levemir Mary Esther 00 "single patient use only" Trazodone 2013-09 No Notes: Memori a 0-09 (Same As: l 04:38: Desyrel) Mary Esther 00 Risperidone 2013-09 No Notes: David cedrick 0-09 (Same as: l 04:38: Risperdal) [place] 00 Trazodone 2013-09 No Notes: Memori a 0-09 (Same As: l 04:38: Desyrel) Mary Esther 00 Risperidone 2013-09 No Notes: David cedrick 0-09 (Same as: l 04:38: Risperdal) [place] 00 Trazodone 2013-09 No Notes: Memori a 0-09 [...] tartrate 0-09 (Same as: l 04:37: Lopressor) Mary Esther 00 Lisinopril 2013-09 No Notes: Memor ia 0-09 (Same as: l 04:37: Prinivil, [place] 00 Zestril) metoprolol 2013-09 No Notes: Memor ia tartrate 0-09 (Same as: l 04:37: Lopressor) [place] 00 Lisinopril 2013-09 No Notes: Memor ia 0-09 (Same as: l 04:37: Prinivil, Mary Esther 00 Zestril) Alprazolam 2013-09 No Notes: Memor ia 0-09 With food l 04:35: or milk Mary Esther 00 (Same as: Xanax) Alprazolam 2013-09 No Notes: Memor ia 0-09 With food l 04:35: or milk [place] 00 (Same as: Xanax) Alprazolam 2013-09 No Notes: Memor ia 0-09 With food l 04:35: or milk Mary Esther 00 (Same as: Xanax) Insulin, 2013-09 No Notes: Memoria Aspart, 0-09 Roll in l Human 04:33: palms of [place] 00 hands gently; Do not shake vigorously . (Same as: NovoLOG) "single patient use only" Stable for 28 days at room temperatur e. Expires in days from ____Date Glucagon 2013-09 No 1 mg, Memoria 0-09 Route: IM, l 04:33: Drug form: Mary Esther 00 PDR/INJ, PRN, Dosing Weight 110.966, kg, PRN Blood Glucose Results, Start date: 06/08/14 23:33:00, Duration: 30 day, Stop date: 07/08/14 22:32:00 Dextrose 2013-09 No 25 gm, 50 David cedrick 50% Syringe 0-09 mL, Route: l 04:33: IVP, Drug Mary Esther 00 Form: INJ, Dosing Weight 110.966, kg, PRN, PRN Blood Glucose Results, Start date: 06/08/14 23:33:00, Duration: 30 day, Stop date: 07/08/14 22:32:00 Insulin, 2013-09 No Notes: Memoria Aspart, 0-09 Roll in l Human 04:33: palms of Mary Esther 00 hands gently; Do not shake vigorously [...] 0-09 mL, Route: l 04:33: IVP, Drug Mary Esther 00 Form: INJ, Dosing Weight 110.966, kg, [...] Memoria 0-09 (Same As: l 04:31: Lioresal) Mary Esther Baclofen 2013-09 No Notes: Memoria 0-09 (Same As: l 04:31: Lioresal) Mary Esther Baclofen 2013-09 No Notes: Memoria 0-09 (Same As: l 04:31: Lioresal) [place] Albuterol 2013-09 No Notes: SEE Me moria [...] 0-09 Instructio l Medication 04:18: ns: [place] 00 Unknown eye drops; filled at [facility] in [place] aspirin 2013-09 Yes 81 mg, PO, David cedrick 0-09 Daily l 04:18: Mary Esther 00 Vitamin D3 2013-09 Yes 200 Memoria 0-09 IntlUnit, l 04:18: PO, Daily [place] 00 Non-Formula 2013-09 Yes Special Mem oria ry Home 0-09 Instructio l Medication 04:18: ns: [place] 00 Unknown eye drops; filled at [facility] in [place] aspirin 2013-09 Yes 81 mg, PO, David cedrick 0-09 Daily l 04:18: [place] 00 Vitamin D3 2013-09 Yes 200 Memoria 0-09 IntlUnit, l 04:18: PO, Daily [place] 00 Non-Formula 2013-09 Yes Special Mem oria ry Home 0-09 Instructio l Medication 04:18: ns: [place] 00 Unknown eye drops; filled at [facility] in [place] aspirin 2013-09 Yes 81 mg, PO, David cedrick 0-09 Daily l 04:18: Mary Esther 00 Vitamin D3 2013-09 Yes 200 Memoria 0-09 IntlUnit, l 04:18: PO, Daily Mary Esther 00 One-A-Day 2013-09 Yes 1 tab, PO, Me moria Men 50 Plus 0-09 Daily l 04:17: Mary Esther 00 One-A2013-09 Yes 1 tab, PO, Me moria Men [...] 0.833 MG/ML 0-09 (Same as: 01:00: Duoneb) Ipratropium 00 Jeffers 0.167 MG/ML Inhalant Solution [DuoNeb] Albuterol 2013-09 No Notes: Memori a 0.833 MG/ML 0-09 (Same as: 01:00: Duoneb) Ipratropium 00 [place]ers 0.167 MG/ML Inhalant Solution [DuoNeb] Albuterol 2013-09 No Notes: Memori a 0.833 MG/ML 0-09 (Same as: 01:00: Duoneb) Ipratropium 00 Jeffers 0.167 MG/ML Inhalant Solution [DuoNeb] Saline 2013-09 No Notes: Memoria Flush 0.9% 0-09 (Same as: l 00:26: BD Mary Esther 00 Posiflush) Saline 2013-09 No Notes: Memoria [...] ity of 0.2 % 09:36: both eyes [place] ophthalmic 2 (two) Medica l solution times [place] daily. lisinopril 2012-09 Yes 20mg Take 20 mg U nivers (PRINIVIL,Z -22 by mouth ity of ESTRIL) 20 09:36: daily. [place] mg tablet 18 Medical Branch SENNOSIDES 2012-09 Yes Take by [facility] ers (SENOKOT -22 mouth. ity of ORAL) 09:36: Indication [place] [address] s: take 2 Medical tabs by Branch mouth at bedtime amLODIPine 2012-09 Yes 10mg Take 10 mg U nivers (NORVASC) 09-22 by mouth ity of 10 mg 09:36: daily. [place] tablet Medical Branch latanoprost 2012-09 Yes 1[drp] 1 Drop Un jewels (XALATAN) 09-22 every ity of 0.005 % 09:36: evening. [place] ophthalmic Medical drops Branch risperidone 2012-09 Yes 4mg Take 4 mg U nivers (RISPERDAL) 09-22 by mouth ity of 3 mg tablet 09:36: at [place] [address] bedtime. Medical Branch acetaminoph 2012-09 Yes Take by Uni vers en (MAPAP) - mouth ity of 325 mg 09:36: every 4 [place] tablet 18 (four) Medical hours as Branch needed. ALPRAZolam 2012-09 Yes .5mg Take 0.5 Uni vers (XANAX) 0.5 1-22 mg by ity of mg tablet 09:36: mouth 2 [place] 18 (two) Medical times [place] daily. Also takes one at bedtime multivitami 2012-09 Yes 1{tbl} Take 1 Tab Univers n (TAB A -22 by mouth ity of THIAGO) 09:36: daily. [place] tablet Medical Branch traZODONE 2012-09 Yes 50mg Take 50 mg Un jewels (DESYREL) -22 by mouth ity of 50 mg 09:36: at [place] [address] bedtime. Medical Branch magnesium 2012-09 Yes 30mL Take 30 mL Un jewels hydroxide -22 by mouth ity of (MILK OF 09:36: daily. [place] MAGNESIA) Medical 400 mg/5 mL Branch suspension insulin 2012-09 Yes 13U inject 13 [facility]-22 Units ity of (LANTUS) 09:36: [place] unit/mL 18 skin at Medic al injection bedtime. Branch venlafaxine 2012-09 Yes 150mg Take 150 U nivers XR (EFFEXOR 1-22 mg by ity of XR) 150 mg 09:36: mouth [place] 24 hr 18 daily with Medical capsule breakfast. Branch brimonidine 2012-09 Yes 1[drp] Place 1 U nivers (ALPHAGAN) 1-22 Drop in ity of 0.2 % 09:36: both eyes [place] ophthalmic 18 2 (two) Medica l solution times [place] daily. lisinopril 2012-09 Yes 20mg Take 20 mg U nivers (PRINIVIL,Z 1-22 by mouth ity of ESTRIL) 20 09:36: daily. [place] mg tablet 18 Medical Branch SENNOSIDES 2012-09 Yes Take by [facility] ers (SENOKOT 1-22 mouth. ity of ORAL) 09:36: Indication [place] 18 s: take 2 Medical tabs by Branch mouth at bedtime amLODIPine 2012-09 Yes 10mg Take 10 mg U nivers (NORVASC) -22 by mouth ity of 10 mg 09:36: daily. [place] tablet 18 Medical Branch latanoprost 2012-09 Yes 1[drp] 1 Drop Un jewels (XALATAN) -22 every ity of 0.005 % 09:36: evening. [place] ophthalmic 18 Medical drops Branch risperidone 2012-09 Yes 4mg Take 4 mg U nivers (RISPERDAL) 22 by mouth ity of 3 mg tablet 09:36: at [place] 18 bedtime. Medical Branch acetaminoph 2012-09 Yes [...] by mouth ity of THIAGO) 09:36: daily. [place] tablet 18 Medical Branch traZODONE 2012-09 Yes 50mg Take 50 mg Un jewels (DESYREL) -22 by mouth ity of 50 mg 09:36: at [place] tablet 18 bedtime. Medical Branch magnesium 2012-09 Yes 30mL Take 30 mL Un jewels hydroxide -22 by mouth ity of (MILK OF 09:36: daily. [place] MAGNESIA) Medical 400 mg/5 mL [place] suspension insulin 2012-09 Yes 13U inject 13 [facility] rs glargine -22 Units ity of (LANTUS) 09:36: under the [facility] 100 unit/mL 18 skin at Medic al injection bedtime. Branch venlafaxine 2012-09 Yes 150mg Take 150 U nivers XR (EFFEXOR 1-22 mg by ity of XR) 150 mg 09:36: mouth [place] 24 hr 18 daily with Medical capsule breakfast. Branch brimonidine 2012-09 Yes 1[drp] Place 1 U nivers (ALPHAGAN) 09-22 Drop in ity of 0.2 % 09:36: both eyes [place] ophthalmic 2 (two) Medica l solution times [place] daily. lisinopril 2012-09 Yes 20mg Take 20 mg U nivers (PRINIVIL,Z 09-22 by mouth ity of ESTRIL) 20 09:36: daily. [place] mg tablet 18 Medical Branch SENNOSIDES 2012-09 Yes Take by [facility] ers (SENOKOT - mouth. ity of ORAL) 09:36: Indication [place] [address] s: take 2 Medical tabs by Branch mouth at bedtime amLODIPine 2012-09 Yes 10mg Take 10 mg U nivers (NORVASC) 22 by mouth ity of 10 mg 09:36: daily. [place] tablet 18 Medical Branch latanoprost 2012-09 Yes 1[drp] 1 Drop Un jewels (XALATAN) -22 every ity of 0.005 % 09:36: evening. [place] ophthalmic 18 Medical drops Branch risperidone 2012-09 Yes 4mg Take 4 mg U nivers (RISPERDAL) 22 by mouth ity of 3 mg tablet 09:36: at [place] [address] bedtime. Medical Branch acetaminoph 2012-09 Yes Take by Uni vers en (MAPAP) 1-22 mouth ity of 325 mg 09:36: every 4 [place] tablet 18 (four) Medical hours as Branch needed. ALPRAZolam 2012-09 Yes .5mg Take 0.5 Uni vers (XANAX) 0.5 1-22 mg by ity of mg tablet 09:36: mouth 2 [place] 18 (two) Medical times [place] daily. Also takes one at bedtime multivitami 2012-09 Yes 1{tbl} Take 1 Tab Univers n (TAB A 1-22 by mouth ity of THIAGO) 09:36: daily. [place] tablet 18 Medical Branch traZODONE 2012-09 Yes 50mg Take 50 mg Un jewels (DESYREL) -22 by mouth ity of 50 mg 09:36: at [place] tablet 18 bedtime. Medical Branch magnesium 2012-09 Yes 30mL Take 30 mL Un jewels hydroxide -22 by mouth ity of (MILK OF 09:36: daily. [place] MAGNESIA) 18 Medical 400 mg/5 mL [place] suspension insulin 2012-09 Yes 13U inject 13 [facility] gl[facility]-22 Units ity of (LANTUS) 09:36: [place] 100 unit/mL 18 skin at Medic al injection bedtime. Branch venlafaxine 2012-09 Yes 150mg Take 150 U nivers XR (EFFEXOR 1-22 mg by ity of XR) 150 mg 09:36: mouth [place] 24 hr 18 daily with Medical capsule breakfast. Branch brimonidine 2012-09 Yes 1[drp] Place 1 U nivers (ALPHAGAN) 1-22 Drop in ity of 0.2 % 09:36: both eyes [place] ophthalmic 2 (two) Medica l solution times [place] daily. lisinopril 2012-09 Yes 20mg Take 20 mg U nivers (PRINIVIL,Z 1-22 by mouth ity of ESTRIL) 20 09:36: daily. [place] mg tablet 18 Medical Branch SENNOSIDES 2012-09 Yes Take by [facility] ers (SENOKOT 1-22 mouth. ity of ORAL) 09:36: Indication [place] 18 s: take 2 Medical tabs by Branch mouth at bedtime amLODIPine 2012-09 Yes 10mg Take 10 mg U nivers (NORVASC) 1-22 by mouth ity of 10 mg 09:36: daily. [place] tablet 18 Medical Branch latanoprost 2012-09 Yes 1[drp] 1 Drop Un jewels (XALATAN) -22 every ity of 0.005 % 09:36: evening. [place] ophthalmic 18 Medical drops Branch risperidone 2012-09 [...] by mouth ity of THIAGO) 09:36: daily. [place] tablet 18 Medical Branch traZODONE 2012-09 Yes 50mg Take 50 mg Un jewels (DESYREL) 09-22 by mouth ity of 50 mg 09:36: at [place] tablet 18 bedtime. Medical Branch magnesium 2012-09 Yes 30mL Take 30 mL Un [facility] hydroxide 09-22 by mouth ity of (MILK OF 09:36: daily. [place] MAGNESIA) 18 Medical 400 mg/5 mL Branch suspension insulin 2012-09 Yes 13U inject 13 Unive rs glargine 1-22 Units ity of (LANTUS) 09:36: [place] unit/mL 18 skin at Medic al injection bedtime. Branch Levothyroxi 2012-09 Yes Take by Uni vers ne 1-22 mouth ity of (TIROSINT) 09:36: daily. [place] 25 mcg Cap 17 Medical Branch amiodarone 2012-09 Yes 200mg Take 200 Un jewels (CORDARONE) 1-22 mg by ity of 200 mg 09:36: mouth [place] tablet 17 daily. Medical Branch Levothyroxi 2012-09 Yes Take by Uni vers ne 1-22 mouth ity of (TIROSINT) 09:36: daily. [place] 25 mcg Cap 17 Medical Branch amiodarone [...] daily. Medical Branch timolol Yes Univers (TIMOPTIC) 8- ity of 0.5 % 00:00: [place] ophthalmic 00 Medical solution Branch metoprolol Yes Univers tartrate 8 ity of (LOPRESSOR) 00:00: [place] 25 mg 00 Medical tablet Branch timolol Yes Univers (TIMOPTIC) 8-01 ity of 0.5 % 00:00: [place] ophthalmic 00 Medical solution Branch metoprolol Yes Univers tartrate 8 ity of (LOPRESSOR) 00:00: [place] 25 mg 00 Medical tablet Branch timolol Yes Univers (TIMOPTIC) 8-01 ity of 0.5 % 00:00: [place] ophthalmic 00 Medical solution Branch metoprolol Yes Univers tartrate 8 ity of (LOPRESSOR) 00:00: [place] 25 mg 00 Medical tablet Branch timolol Yes Univers (TIMOPTIC) 8-01 ity of 0.5 % 00:00: [place] ophthalmic 00 Medical solution Branch metoprolol Yes Univers tartrate 8 ity of (LOPRESSOR) 00:00: [place] 25 mg [...] 4-04 by mouth ity of 00:00: daily. [place] [facility] BACLOFEN Yes 5mg Take 5 mg Univ ers ORAL 4-04 by mouth 2 ity of 00:00: (two) [place] 00 times Medical daily. Branch EC ASPIRIN Yes 81mg Take 81 mg U nivers ORAL 4-04 by mouth ity of 00:00: daily. [address] BACLOFEN Yes 5mg Take 5 mg Univ ers ORAL 4-04 by mouth 2 ity of 00:00: (two) [place] 00 times Medical daily. Branch EC ASPIRIN Yes 81mg Take 81 mg U nivers ORAL 4-04 by mouth ity of 00:00: daily. [address] Vitamin C Vitamin C Yes Jenna 1 tablet Common [place] [facility] Docusate Docusate Yes Jenna 2 capsule C ommon Sodium Sodium [place] as needed S [facility] Xarelto Xarelto Yes Jenna 20 MG PO Comm on [place] DAILY [facility] Baclofen Baclofen Yes Jenna TK 1 T PO C ommon Millender Q 8 H PRN. Spir it - [facility] Lasix Lasix Yes Jenna 40 MG PO Common Millender DAILY [facility] Tresiba Treba Yes Jenna 70 units Comm on FlexTouch FlexTouch [facility] Amiodarone Amiodarone Yes Jenna TAKE 1 Common HCl HCl Millender TABLET BY Spiri t MOUTH - [facility] EVERY DAY. [facility] Risperidone Risperidone Yes Jenna TAKE 3 Common Millender TABLETS BY Spir it MOUTH ONCE - [facility] A DAY. [facility] Symbicort Symbicort Yes Jenna inhale 2 Common Millender puffs po Spirit bid. [facility] Amlodipine Amlodipine Yes Jenna TAKE 1 Common Besylate Besylate Millender TABLET BY Spirit MOUTH - [facility] DAILY [facility] Lisinopril Lisinopril Yes Jenna 1 tablet Common [facility] Aspirin Aspirin Yes Jenna 1 tablet Comm on Mill[facility] Betaxolol Betaxolol Yes Jenna 1 drop Co mmon HCl HCl Millender into Spirit affected - [facility] eye [facility] Lisinopril Lisinopril Yes Jenna 1 tablet Common Millender [facility] Clonidine Clonidine Yes Jenna TAKE 1 Co mmon HCl HCl Millender TABLET BY Spiri t MOUTH - [facility] TWICE [facility] DAILY [facility] Atorvastati Atorvastati Yes Jenna TAKE 1 Common n Calcium n Calcium Millender TABLET BY Spirit MOUTH - [facility] EVERY [facility] NIGHT AT [facility] Januvia Januvia Yes Jenna TAKE 1 Common Millender TABLET BY Spiri t MOUTH - [facility] DAILY [facility] Venlafaxine Venlafaxine Yes Jenna 1 capsule Common HCl ER HCl ER Millender with food S pirit [facility] Latanoprost Latanoprost Yes Jenna INT 1 GTT Common Millender IN OU Q. [facility] it [facility] Trazodone Trazodone Yes Jenna TK 1 T PO Common HCl HCl Millender QHS. [facility] BusPIRone BusPIRone Yes Jenna 1 tablet Common HCl HCl Millender [facility] Levothyroxi Levothyroxi Yes Jenna 1 tablet Common ne Sodium ne Sodium Millender on an [facility] empty - [facility] stomach in [facility] Venlafaxine Venlafaxine Yes Jenna TAKE 1 Common HCl HCl Millender TABLET BY Spiri t MOUTH - [facility] EVERY DAY St WITH FOOD. [facility] Furosemide Furosemide Yes Jenna 1 tablet Common Millender [facility] BD Pen BD Pen Yes Jenna INJECT Common Needle Disha Needle Disha Millender USING Spirit U/F U/F INSULIN D. [facility] Divalproex Divalproex Yes Jenna as Co mmon Sodium ER Sodium ER Millender directed [facility] Immunizations Ordered Immunization Filled Immunization [...] Systolic (mm Hg) 2017-06-10 22:17:00 David rial [facility] Diastolic (mm Hg) 2017-06-10 22:17:00 Mem orial G[facility] Temperature Oral (F) 2017-06-10 22:17:00 98.2 F [facility] Heart Rate 2017-06-10 22:17:00 [facility] Systolic (mm Hg) 2017-06-10 17:00:00 David rial Góme[facility] Diastolic (mm Hg) 2017-06-10 17:00:00 Mem o[facility] Respitory Rate 2017-06-10 17:00:00 Memori al [facility] Heart Rate 2017-06-10 17:00:00 [facility] Temperature Oral (F) 2017-06-10 17:00:00 98.3 F [facility] Heart Rate 2017-06-10 12:50:00 [facility] Temperature Oral (F) 2017-06-10 12:50:00 98.2 F [facility] Respitory Rate 2017-06-10 12:50:00 Mem[facility] Systolic (mm Hg) 2017-06-10 12:50:00 David rial Góme[facility] Diastolic (mm Hg) 2017-06-10 12:50:00 Mem o[facility] BMI Calculated 2017 16:42:00 [facility] Weight 2017 16:42:00 [facility] Height 2017 16:42:00 185.42 cm [facility] BMI Calculated 2017 15:56:00 [facility] Weight 2017 15:56:00 [facility] Height 2017 15:56:00 185.42 cm [facility] BMI Calculated 2017 10:33:00 Memori al [facility] Height 2017 10:33:00 185.42 cm [facility] Weight 2017 10:33:00 [facility] Heart Rate 2016-07-30 18:00:00 [facility] Respitory Rate 2016-07-30 18:00:00 Mem[facility] al [facility] Systolic (mm Hg) 2016-07-30 18:00:00 David rial Gó[facility] Diastolic (mm Hg) 2016-07-30 18:00:00 Mem o[facility] Temperature Oral (F) 2016-07-30 18:00:00 97.5 F [facility] Systolic (mm Hg) 2016-07-30 14:00:00 David rial Góme[facility] Diastolic (mm Hg) 2016-07-30 14:00:00 Mem o[facility] Heart Rate 2016-07-30 14:00:00 [facility] Respitory Rate 2016-07-30 14:00:00 Memori al [facility] Temperature Oral (F) 2016-07-30 14:00:00 97.5 F [facility] Respitory Rate 2016-07-30 13:39:00 [facility] Temperature Oral (F) 2016-07-30 06:19:00 98.1 F [facility] Heart Rate 2016-07-30 06:19:00 [facility] Systolic (mm Hg) 2016-07-30 06:19:00 David rial Góme[facility] Diastolic (mm Hg) 2016-07-30 06:19:00 Mem [facility] Weight 2016-07-28 14:21:00 [facility] Weight 2016-07-28 09:33:00 [facility] Height 2016-07-28 09:33:00 182.88 cm [facility] BMI Calculated 2016-07-28 09:33:00 Memori al [facility] Weight 2016-07-28 02:47:00 [facility] BMI Calculated 2016-07-28 02:47:00 [facility] Height 2016-07-28 02:47:00 180.34 cm [facility] Respitory Rate 2016-05-30 18:30:00 Memori al [facility] Systolic (mm Hg) 2016-05-30 18:30:00 David rial [facility] Diastolic (mm Hg) 2016-05-30 18:30:00 Mem orial [facility] Temperature Oral (F) 2016-05-30 18:30:00 98.6 F [facility] Respitory Rate 2016-05-30 18:00:00 Memori al [facility] Systolic (mm Hg) 2016-05-30 18:00:00 David rial Gómez Diastolic (mm Hg) 2016-05-30 18:00:00 Mem o[facility] Respitory Rate 2016-05-30 17:30:00 [facility] Systolic (mm Hg) 2016-05-30 17:30:00 David rial Gómez Diastolic (mm Hg) 2016-05-30 17:30:00 Mem o[facility] Heart Rate 2016-05-30 15:14:00 [facility] BMI Calculated 2016-05-30 14:36:00 [facility] Weight 2016-05-30 14:36:00 [facility] Heart Rate 2016-05-30 14:36:00 [facility] Height 2016-05-30 14:36:00 182.88 cm [facility] Temperature Oral (F) 2016-05-30 14:36:00 98.7 F [facility] Systolic (mm Hg) 2015-02-19 16:00:00 David rial [facility] Diastolic (mm Hg) 2015-02-19 16:00:00 Mem o[facility] Respitory Rate 2015-02-19 16:00:00 Memori al [facility] Systolic (mm Hg) 2015-02-19 15:00:00 David rial Góme[facility] Diastolic (mm Hg) 2015-02-19 15:00:00 Mem o[facility] Respitory Rate 2015-02-19 15:00:00 [facility] Respitory Rate 2015-02-19 14:00:00 Mem[facility] Systolic (mm Hg) 2015-02-19 14:00:00 David rial [facility] Diastolic (mm Hg) 2015-02-19 14:00:00 Mem orial [facility] Temperature Oral (F) 2015-02-18 22:07:00 97.7 F [facility] Temperature Oral (F) 2015-02-18 16:51:00 98.6 F [facility] Weight 2015-02-18 15:03:00 [facility] Temperature Oral (F) 2015-02-18 12:48:00 98.5 F [facility] Heart Rate 2015-02-17 18:50:00 [facility] Height 2015-02-17 18:41:00 185.42 cm [facility] Weight 2015-02-17 18:41:00 [facility] BMI Calculated 2015-02-17 18:41:00 Memori al [facility] Heart Rate 2015-02-17 17:52:00 [facility] Heart Rate 2015-02-17 17:34:00 [facility] Weight 2015-02-17 14:33:00 [facility] BMI Calculated 2015-02-17 14:33:00 Memori al [facility] Height 2015-02-17 14:33:00 185.42 cm [facility] Diastolic (mm Hg) 2014-06-11 17:24:00 Mem o[facility] Systolic (mm Hg) 2014-06-11 17:24:00 David rial Gó[facility] Respitory Rate 2014-06-11 17:24:00 Mem[facility] al [facility] Heart Rate 2014-06-11 17:24:00 [facility] Temperature Oral (F) 2014-06-11 17:24:00 97.4 F [facility] Respitory Rate 2014-06-11 12:27:00 Memori al [facility] Heart Rate 2014-06-11 12:26:00 [facility] Temperature Oral (F) 2014-06-11 12:26:00 98.5 F [facility] Systolic (mm Hg) 2014-06-11 12:26:00 David rial [facility] Diastolic (mm Hg) 2014-06-11 12:26:00 Mem o[facility] Respitory Rate 2014-06-11 12:26:00 Memori al [facility] Systolic (mm Hg) 2014-06-11 05:07:00 David rial Góme[facility] Diastolic (mm Hg) 2014-06-11 05:07:00 Mem orial [facility] Temperature Oral (F) 2014-06-11 05:07:00 98.4 F [facility] Heart Rate 2014-06-11 05:07:00 [facility] BMI Calculated 2014-06-09 05:37:00 Memori al [facility] Weight 2014-06-09 05:37:00 [facility] Height 2014-06-09 05:37:00 185.42 cm [facility] Height 2014-06-09 00:05:00 185.42 cm [facility] Weight 2014-06-09 00:05:00 [facility] BMI Calculated 2014-06-09 00:05:00 Memori al G[facility] Procedures Procedure Date / Time Performed Performing Clinician [facility] e CT LUMBAR SPINE WO 2022-01-14 14:48:02 Andrew Oviedo Un[facility] CONSENT/REFUSAL FOR 2022-01-14 14:08:22 Doctor Unassigned, No Un [facility] DIAGNOSIS AND [facility] TREATMENT ASSIGNMENT OF BENEFITS 2022-01-14 14:07:33 Doctor Unassigned, No [facility] XR BONE SURVEY LTD 2021-12-28 15:13:00 Erlin Rodriguez [facility] ASSIGNMENT OF BENEFITS 2021-12-28 13:11:23 Doctor Unassigned, No [facility] Aortic aneurysm repair [facility] Start End Encounter Admission Attending Care Care Encounter Source Date/Time Date/Time Type Type Clinicians Facility Department ID 2022-11-01 Outpatient [facility] [id number] [place] 15:28:00 [id number] [facility] 2022-10-31 Outpatient [facility] [id number] [place] 13:59:46 [id number] [facility] 2022-10-23 Outpatient [facility] [id number] [place] 13:25:35 [id number] [facility] 2022-10-16 Outpatient [facility] [id number] [place] 10:32:46 [id number] [facility] 2021-11-30 Outpatient BAYTN B[facility] [id number] [place] 15:40:57 [id number] [facility] 2021-11-28 Outpatient BAYTN BAYTN [id number] [place] 14:03:42 [id number] [facility] 2021-09-26 [facility] [id number] 10:59:02 Jenna [id number] [facility] 2022-11-07 2022-11-07 Outpatient MOODY, [facility] [id number] [place] 12:30:00 12:30:[facility] 2022-[facility] 2022-11-07 Outpatient [facility] [id number] [place] 12:15:00 12:15:00 [facility] 2022-10-31 2022-10-31 Office PRADEEP Martin [id number] [place] 14:00:00 14:35:52 Visit Che FARRELL [id number] [facility] [id number] 2022-10-31 2022-10-31 Outpatient [facility] [id number] [place] 14:00:00 14:00:00 [facility] 2022-10-24 2022-10-24 Outpatient FRANSISCO, [facility] [id number] [place] 09:30:00 09:30:00 [facility] 2022-10-05 2022-10-11 Inpatient E SARKIS, [facility] MED [id number] [facility] 16:42:00 17:00:00 SHIFA 2022-01-14 2022-01-14 [id number] [facility] 09:07:59 23:59:00 ANDREW ity [facility] 2022-01-14 2022-01-14 [facility] [id number] Univers 09:07:59 23:59:00 Encounter Andrew Carpenter [place] [id number] [facility] [id number] [facility] [id number] [facility] [address] 2021-12-28 2021-12-28 [facility] [id number] Univers 09:51:42 23:59:00 Encounter Erlin NEVAREZTON [id number] ity of [place] [id number] [facility] [id number] [facility] [address] 2021-12-28 2021-12-28 [facility] [id number] Univers 08:13:17 09:50:00 Encounter Andrew NEVAREZTON [id number] [facility] [id number] [facility] [id number] [facility] [address] 2021-12-28 2021-12-28 [facility] [id number] Univers 00:00:00 09:50:00 ANDREW ity [facility] 2021-12-28 2021-12-28 Orders Doctor HOPE [id number] Univers 00:00:00 00:00:00 Only Unassigned, FIDE [id number] ity of [place] [facility] [id number] Hermes as [id number] [address] 2019-09-23 2019-09-23 [facility] [id number] Common 15:09:00 15:09:[address] [facility] 2019-09-09 2019-09-09 [facility] [id number] Common 11:30:00 11:30:[address] [facility] 2019-08-05 2019-08-05 [facility] [id number] Common 14:57:00 14:57:[address] [facility] 2019-08-02 2019-08-02 [facility] [id number] Common 14:24:00 14:24:[address] [facility] 2019-07-26 2019-07-26 [facility] [id number] Common 13:14:00 13:14:[address] [facility] 2019-07-20 2019-07-20 [facility] [id number] Common 09:08:00 09:08:[address] [facility] 2019-07-14 2019-07-14 [facility] [id number] Common 15:20:00 15:20:[address] [facility] 2019-06-24 2019-06-24 [facility] [id number] Common 11:00:00 11:00:[address] [facility] 2019-06-01 2019-06-01 [facility] [id number] Common 12:18:00 12:18:[address] [facility] 2019-05-31 2019-05-31 [facility] [id number] Common 14:36:00 14:36:[address] [facility] 2019-05-27 2019-05-27 [facility] [id number] Common 10:30:00 10:30:[address] [facility] 2019-04-12 2019-04-12 [facility] [id number] Common 14:45:00 14:45:[address] [facility] 2019-03-22 2019-03-22 [facility] [id number] Common 10:30:00 10:30:[address] [facility] 2019-03-08 2019-03-08 [facility] [id number] Common 14:45:00 14:45:[address] [facility] 2019-03-02 2019-03-02 [facility] [id number] Common 10:30:00 10:30:[address] [facility] 2018-12-28 2018-12-28 [facility] [id number] Common 15:15:00 15:15:[address] [facility] 2018-12-10 2018-12-10 [facility] [id number] Common 14:52:00 14:52:[address] [facility] 2018-11-19 2018-11-19 [facility] [id number] Common 11:30:00 11:30:[address] [facility] 2018-10-22 2018-10-22 [facility] [id number] Common 11:45:00 11:45:[address] [facility] 2018-09-18 2018-09-18 [facility] [id number] Common 11:48:00 11:48:[address] [facility] 2018-09-16 2018-09-16 [facility] [id number] Common 15:42:00 15:42:[address] [facility] 2017 2017-06-10 Inpatient [facility] [id number] Memoria 10:29:00 22:37:00 r Gómez 05 l [facility] 2017 2017-06-10 Outpatient Katherine, [facility] [id number] 05:29:00 17:37:00 Giancarlo Jade 2016-12-02 2017-01-01 Wound Care [facility] [id number] Memoria 18:13:00 04:59:00 r Gómez 06 l [facility] 2016-10-02 2016-11-01 Wound Care [facility] [id number] Memoria 16:00:00 05:59:00 r Gómez 05 l [facility] 2016-07-28 2016-07-30 Inpatient [facility] [id number] Memoria 02:46:00 20:34:00 r Gómez Hubbard l [facility] 2016-05-07 2016-06-06 Wound Care [facility] [id number] Memoria 18:08:00 04:59:00 r Gómez 04 l [facility] 2016-05-30 2016-05-30 Emergency [facility] [id number] Memoria 14:35:00 18:49:00 r Gómez Moran l [facility] 2016-02-06 2016-03-07 Wound Care [facility] [id number] Memoria 18:04:00 04:59:00 r Gómez 03 l [facility] 2015-12-12 2016-01-11 Wound Care [facility] [id number] Memoria 18:29:00 04:59:00 r Gómez 02 l [facility] 2015-10-24 2015-11-23 Wound Care [facility] [id number] Memoria 19:00:00 04:59:00 r Gómez 01 l [facility] 2015-09-11 2015-10-11 Wound Care [facility] [id number] Memoria 15:27:00 05:59:00 r Gómez 00 l [facility] 2015-09-15 2015-09-16 Outpt Diag nullFlavo [facility] [id number] Memoria 17:54:00 05:59:00 Services r Outpatient [address] [facility] 2015-02-17 2015-02-19 Inpatient [facility] [id number] Memoria 14:32:00 17:39:00 r Mary Esther 02 l [facility] 2014-06-08 2014-06-11 Inpatient [facility] [id number] Memoria 23:44:00 19:30:00 r Mary Esther 01 l [facility] Results Test Description Test Time Test Comments Results Result Comments Source CHEM PANEL 2017-06-09 10:26:00 Test Item Value Reference Range Interpretation Comme nts eGFR (test code = eGFR) 83 [facility]2017-10-09 10:26:00 Test Item Value Reference Range Interpretation Comments Calcium Lvl (test code = Calcium Lvl) 9.0 8.5-10.5 [facility]2017-10-09 10:26:00 Test Item Value Reference Range Interpretation Comments AGAP (test code = AGAP) 8.0 10.0-20.0 [facility]2017-10-09 10:26:00 Test Item Value Reference Range Interpretation Comments Creatinine Lvl (test code = Creatinine 0.91 0.50-1.40 Lvl) [facility]2017-10-09 10:26:00 Test Item Value Reference Range Interpretation Comments Chloride Lvl (test code = Chloride Lvl) 96 95-109 [facility]2017-10-09 10:26:00 Test Item Value Reference Range Interpretation Comments CO2 (test code = CO2) 37 24-32 [facility]2017-10-09 10:26:00 Test Item Value Reference Range Interpretation Comments Sodium Lvl (test code = Sodium Lvl) 137 135-145 [facility]2017-10-09 10:26:00 Test Item Value Reference Range Interpretation Comments Glucose Lvl (test code = Glucose Lvl) 132 70-99 [facility]2017-10-09 10:26:00 Test Item Value Reference Range Interpretation Comments BUN (test code = BUN) 12 7-22 [facility]2017-10-09 10:26:00 Test Item Value Reference Range Interpretation Comments Potassium Lvl (test code = Potassium 4.0 3.5-5.1 Lvl) [id number] 10:26:00 Test Item Value Reference Range Interpretation Comments Basophils (test code = 0.9 See_Comment [Aut omated message] The Basophils) system which ge nerated this result tra nsmitted reference range : <=1.0. The reference r jose alfredo was not used to int erpret this result as normal/abnormal . [facility] [id number] 10:26:00 Test Item Value Reference Range Interpretation Comments Segs-Bands # (test code = Segs-Bands #) 5.6 1.5-8.1 [facility] H[id number] 10:26:00 Test Item Value Reference Range Interpretation Comments Monocytes # (test code 1.2 See_Comment [Aut omated message] The = Monocytes #) system which generated this result tra nsmitted reference range : <=0.8. The reference r jose alfredo was not used to int erpret this result as normal/abnormal . [facility] H[id number] 10:26:00 Test Item Value Reference Range Interpretation Comments Lymphocytes # (test code = Lymphocytes 1.2 1.0-5.5 #) [facility] [id number] 10:26:00 Test Item Value Reference Range Interpretation Comments Basophils # (test code 0.1 See_Comment [Aut omated message] The = Basophils #) system which generated this result tra nsmitted reference range : <=0.2. The reference r jose alfredo was not used to int erpret this result as normal/abnormal . [facility] H[id number] 10:26:00 Test Item Value Reference Range Interpretation Comments Eosinophils # (test code 0.2 See_Comment [A utomated message] The = Eosinophils #) system whic h generated this result tra nsmitted reference range : <=0.5. The reference r jose alfredo was not used to int erpret this result as normal/abnormal . [facility] H[id number] 10:26:00 Test Item Value Reference Range Interpretation Comments Eosinophils (test code = 2.0 See_Comment [A utomated message] The Eosinophils) system which ge nerated this result tra nsmitted reference range : <=4.0. The reference r jose alfredo was not used to int erpret this result as normal/abnormal . [facility] H[id number] 10:26:00 Test Item Value Reference Range Interpretation Comments Monocytes (test code = Monocytes) 14.8 2.0-12.0 [facility] H[id number] 10:26:00 Test Item Value Reference Range Interpretation Comments Lymphocytes (test code = Lymphocytes) 14.9 20.0-40.0 [facility] H[id number] 10:26:00 Test Item Value Reference Range Interpretation Comments Segs (test code = Segs) 67.4 45.0-75.0 [facility] Hospit[id number] 10:26:00 Test Item Value Reference Range Interpretation Comments RDW (test code = RDW) 14.4 11.5-14.5 [facility] Hos[id number] 10:26:00 Test Item Value Reference Range Interpretation Comments Platelet (test code = Platelet) 324 133-450 [facility] Hos[id number] 10:26:00 Test Item Value Reference Range Interpretation Comments MPV (test code = MPV) 8.9 7.4-10.4 [facility] Ho[id number] 10:26:00 Test Item Value Reference Range Interpretation Comments MCHC (test code = MCHC) 33.7 32.0-36.0 [facility] Hos[id number] 10:26:00 Test Item Value Reference Range Interpretation Comments RBC (test code = RBC) 3.48 4.70-6.10 [facility] HospitalJufsjosOGIURLHNJW5728-26-09 10:26:00 Test Item Value Reference Range Interpretation Comments Hgb (test code = Hgb) 10.5 14.0-18.0 [facility] H[id number] 10:26:00 Test Item Value Reference Range Interpretation Comments MCV (test code = MCV) 89.8 80.0-94.0 [facility] Hos[id number] 10:26:00 Test Item Value Reference Range Interpretation Comments Hct (test code = Hct) 31.2 42.0-54.0 [facility] H[id number] 10:26:00 Test Item Value Reference Range Interpretation Comments MCH (test code = MCH) 30.2 pg 27.0-31.0 [facility] HospitalGbzajonWMFDLMMSUW6072-04-25 10:26:00 Test Item Value Reference Range Interpretation Comments WBC (test code = WBC) 8.4 3.7-10.4 [facility]2017-10-09 10:26:00 Test Item Value Reference Range Interpretation Comments eGFR (test code = eGFR) 83 [facility]2017-10-09 10:26:00 Test Item Value Reference Range Interpretation Comments Calcium Lvl (test code = Calcium Lvl) 9.0 8.5-10.5 [facility]2017-10-09 10:26:00 Test Item Value Reference Range Interpretation Comments AGAP (test code = AGAP) 8.0 10.0-20.0 [facility]2017-10-09 10:26:00 Test Item Value Reference Range Interpretation Comments Creatinine Lvl (test code = Creatinine 0.91 0.50-1.40 Lvl) [facility]2017-10-09 10:26:00 Test Item Value Reference Range Interpretation Comments Chloride Lvl (test code = Chloride Lvl) 96 95-109 [facility]2017-10-09 10:26:00 Test Item Value Reference Range Interpretation Comments CO2 (test code = CO2) 37 24-32 [facility]2017-10-09 10:26:00 Test Item Value Reference Range Interpretation Comments Sodium Lvl (test code = Sodium Lvl) 137 135-145 [facility]2017-10-09 10:26:00 Test Item Value Reference Range Interpretation Comments Glucose Lvl (test code = Glucose Lvl) 132 70-99 [facility]2017-10-09 10:26:00 Test Item Value Reference Range Interpretation Comments BUN (test code = BUN) 12 7-22 [facility]2017-10-09 10:26:00 Test Item Value Reference Range Interpretation Comments Potassium Lvl (test code = Potassium 4.0 3.5-5.1 Lvl) [facility] HospitalZemrkxqKNGEDNCUMK6677-68-32 10:26:00 Test Item Value Reference Range Interpretation Comments Basophils (test code = 0.9 See_Comment [Aut omated message] The Basophils) system which ge nerated this result tra nsmitted reference range : <=1.0. The reference r jose alfredo was not used to int erpret this result as normal/abnormal . [facility] HospitalHcmjeknQVKBAOAUSE8142-84-73 10:26:00 Test Item Value Reference Range Interpretation Comments Segs-Bands # (test code = Segs-Bands #) 5.6 1.5-8.1 [facility] HospitalGxbjfybJWBDOMIYFX7496-45-16 10:26:00 Test Item Value Reference Range Interpretation Comments Monocytes # (test code 1.2 See_Comment [Aut omated message] The = Monocytes #) system which generated this result tra nsmitted reference range : <=0.8. The reference r jose alfredo was not used to int erpret this result as normal/abnormal . [facility] HospitalVwhodoeCMKXVEPQSL2235-53-91 10:26:00 Test Item Value Reference Range Interpretation Comments Lymphocytes # (test code = Lymphocytes 1.2 1.0-5.5 #) [facility] HospitalWobgmnpUHLVZYYOXM7666-92-34 10:26:00 Test Item Value Reference Range Interpretation Comments Basophils # (test code 0.1 See_Comment [Aut omated message] The = Basophils #) system which generated this result tra nsmitted reference range : <=0.2. The reference r jose alfredo was not used to int erpret this result as normal/abnormal . [facility] HospitalBokzdxfJUFFENRMMM0927-91-59 10:26:00 Test Item Value Reference Range Interpretation Comments Eosinophils # (test code 0.2 See_Comment [A utomated message] The = Eosinophils #) system [facility] h generated this result tra nsmitted reference range : <=0.5. The reference r jose alfredo was not used to int erpret this result as normal/abnormal . [facility] HospitalVjpzoyzIETWHGMBHI6777-55-14 10:26:00 Test Item Value Reference Range Interpretation Comments Eosinophils (test code = 2.0 See_Comment [A utomated message] The Eosinophils) system which ge nerated this result tra nsmitted reference range : <=4.0. The reference r jose alfredo was not used to int erpret this result as normal/abnormal . [facility] HospitalJfvomlaESDLOSAUJK0916-23-62 10:26:00 Test Item Value Reference Range Interpretation Comments Monocytes (test code = Monocytes) 14.8 2.0-12.0 [facility] HospitalMggxluhSTWUTHCFSZ2535-90-57 10:26:00 Test Item Value Reference Range Interpretation Comments Lymphocytes (test code = Lymphocytes) 14.9 20.0-40.0 [facility] HospitalAgqgqwrRULOJDVTSH9440-44-31 10:26:00 Test Item Value Reference Range Interpretation Comments Segs (test code = Segs) 67.4 45.0-75.0 [facility] HospitalWjmjesgHUEJMVUVMI1925-99-98 10:26:00 Test Item Value Reference Range Interpretation Comments RDW (test code = RDW) 14.4 11.5-14.5 [facility] HospitalJcdjnmzNFNKYBRSJG2678-80-46 10:26:00 Test Item Value Reference Range Interpretation Comments Platelet (test code = Platelet) 324 133-450 [facility] HospitalYidvuosGZDCKEASLW3447-51-91 10:26:00 Test Item Value Reference Range Interpretation Comments MPV (test code = MPV) 8.9 7.4-10.4 [facility] HospitalOyrwozcMYRWKZOULS5252-82-91 10:26:00 Test Item Value Reference Range Interpretation Comments MCHC (test code = MCHC) 33.7 32.0-36.0 [facility] HospitalJhcqzjeGHWJIJOJRG6287-17-14 10:26:00 Test Item Value Reference Range Interpretation Comments RBC (test code = RBC) 3.48 4.70-6.10 [facility] HospitalJxxnfqsOJHPQJWNOJ2142-78-85 10:26:00 Test Item Value Reference Range Interpretation Comments Hgb (test code = Hgb) 10.5 14.0-18.0 [facility] HospitalLckoimnFQYCPFBTIQ7259-24-36 10:26:00 Test Item Value Reference Range Interpretation Comments MCV (test code = MCV) 89.8 80.0-94.0 [facility] HospitalOfqfvmwMJOQSCNZUY5137-74-82 10:26:00 Test Item Value Reference Range Interpretation Comments Hct (test code = Hct) 31.2 42.0-54.0 [facility] HospitalXhmwwhpXBCUABFTVJ3124-04-61 10:26:00 Test Item Value Reference Range Interpretation Comments MCH (test code = MCH) 30.2 pg 27.0-31.0 [facility] HospitalSoqqedcWXJOELCGWZ0559-68-12 10:26:00 Test Item Value Reference Range Interpretation Comments WBC (test code = WBC) 8.4 3.7-10.4 [facility]2017-10-09 10:26:00 Test Item Value Reference Range Interpretation Comments eGFR (test code = eGFR) 83 [facility]2017-10-09 10:26:00 Test Item Value Reference Range Interpretation Comments Calcium Lvl (test code = Calcium Lvl) 9.0 8.5-10.5 [facility]2017-10-09 10:26:00 Test Item Value Reference Range Interpretation Comments AGAP (test code = AGAP) 8.0 10.0-20.0 [facility]2017-10-09 10:26:00 Test Item Value Reference Range Interpretation Comments Creatinine Lvl (test code = Creatinine 0.91 0.50-1.40 Lvl) [facility]2017-10-09 10:26:00 Test Item Value Reference Range Interpretation Comments Chloride Lvl (test code = Chloride Lvl) 96 95-109 [facility]2017-10-09 10:26:00 Test Item Value Reference Range Interpretation Comments CO2 (test code = CO2) 37 24-32 [facility]2017-10-09 10:26:00 Test Item Value Reference Range Interpretation Comments Sodium Lvl (test code = Sodium Lvl) 137 135-145 [facility]2017-10-09 10:26:00 Test Item Value Reference Range Interpretation Comments Glucose Lvl (test code = Glucose Lvl) 132 70-99 [facility]2017-10-09 10:26:00 Test Item Value Reference Range Interpretation Comments BUN (test code = BUN) 12 7-22 [facility]2017-10-09 10:26:00 Test Item Value Reference Range Interpretation Comments Potassium Lvl (test code = Potassium 4.0 3.5-5.1 Lvl) [facility] HospitalIjvgnkcYRUGTXRTSA0573-80-02 10:26:00 Test Item Value Reference Range Interpretation Comments Basophils (test code = 0.9 See_Comment [Aut omated message] The Basophils) system which ge nerated this result tra nsmitted reference range : <=1.0. The reference r jose alfredo was not used to int erpret this result as normal/abnormal . [facility] HospitalXzfombxTOMXEAEIBY0269-20-69 10:26:00 Test Item Value Reference Range Interpretation Comments Segs-Bands # (test code = Segs-Bands #) 5.6 1.5-8.1 [facility] HospitalKpmalnaCROPTKOBVY1786-04-94 10:26:00 Test Item Value Reference Range Interpretation Comments Monocytes # (test code 1.2 See_Comment [Aut omated message] The = Monocytes #) system which generated this result tra nsmitted reference range : <=0.8. The reference r jose alfredo was not used to int erpret this result as normal/abnormal . [facility] HospitalOlgrargIZHKGJPXLH4154-47-62 10:26:00 Test Item Value Reference Range Interpretation Comments Lymphocytes # (test code = Lymphocytes 1.2 1.0-5.5 #) [facility] HospitalHinligwSLXRWYOMAI6663-71-81 10:26:00 Test Item Value Reference Range Interpretation Comments Basophils # (test code 0.1 See_Comment [Aut omated message] The = Basophils #) system which generated this result tra nsmitted reference range : <=0.2. The reference r jose alfredo was not used to int erpret this result as normal/abnormal . [facility] HospitalSryroixOKMQOVNEIA5479-02-68 10:26:00 Test Item Value Reference Range Interpretation Comments Eosinophils # (test code 0.2 See_Comment [A utomated message] The = Eosinophils #) system whic h generated this result tra nsmitted reference range : <=0.5. The reference r jose alfredo was not used to int erpret this result as normal/abnormal . [facility] HospitalJobfbynWBXYOTYPRL5965-64-27 10:26:00 Test Item Value Reference Range Interpretation Comments Eosinophils (test code = 2.0 See_Comment [A utomated message] The Eosinophils) system which ge nerated this result tra nsmitted reference range : <=4.0. The reference r jose alfredo was not used to int erpret this result as normal/abnormal . [facility] HospitalIhzgrrmCPFMLQHUMH5021-40-90 10:26:00 Test Item Value Reference Range Interpretation Comments Monocytes (test code = Monocytes) 14.8 2.0-12.0 [facility] HospitalXbzmbolTKRZRQCGUG3806-96-24 10:26:00 Test Item Value Reference Range Interpretation Comments Lymphocytes (test code = Lymphocytes) 14.9 20.0-40.0 [facility] HospitalSwdojnjEUKUYPCXLL1443-68-80 10:26:00 Test Item Value Reference Range Interpretation Comments Segs (test code = Segs) 67.4 45.0-75.0 [facility] HospitalDsxalqfIHXTMYLWMG0029-57-42 10:26:00 Test Item Value Reference Range Interpretation Comments RDW (test code = RDW) 14.4 11.5-14.5 [facility] HospitalWkbsvucRPFKWIBUSU9299-72-33 10:26:00 Test Item Value Reference Range Interpretation Comments Platelet (test code = Platelet) 324 143-450 [facility] HospitalMzdfimaGOPIISFYCS3066-40-12 10:26:00 Test Item Value Reference Range Interpretation Comments MPV (test code = MPV) 8.9 7.4-10.4 [facility] HospitalZbfohgpDLVSRHHKCQ6572-72-61 10:26:00 Test Item Value Reference Range Interpretation Comments MCHC (test code = MCHC) 33.7 32.0-36.0 [facility] HospitalNqypzouMIYYEDDFKF2128-99-93 10:26:00 Test Item Value Reference Range Interpretation Comments RBC (test code = RBC) 3.48 4.70-6.10 [facility] HospitalGqdfdorHQLPFLLBPP3887-93-78 10:26:00 Test Item Value Reference Range Interpretation Comments Hgb (test code = Hgb) 10.5 14.0-18.0 [facility] HospitalTljeeqiUBOTPHSVEB2852-32-83 10:26:00 Test Item Value Reference Range Interpretation Comments MCV (test code = MCV) 89.8 80.0-94.0 [facility] HospitalThdicozKYZQKXBTRM4458-80-94 10:26:00 Test Item Value Reference Range Interpretation Comments Hct (test code = Hct) 31.2 42.0-54.0 [facility] HospitalXkiizswUMSLIUBTRO9425-12-89 10:26:00 Test Item Value Reference Range Interpretation Comments MCH (test code = MCH) 30.2 pg 27.0-31.0 [facility] HospitalXkbtpxwLCXQNVRIOY5151-08-40 10:26:00 Test Item Value Reference Range Interpretation Comments WBC (test code = WBC) 8.4 3.7-10.4 [facility]LkkjxygMIRBVJAGEUDV8116-71-41 09:36:00 Test Item Value Reference Range Interpretation Comments AGAP (test code = AGAP) 6.7 10.0-20.0 [facility] HospitalVasvuxeAJWFSXTOPKYR3977-64-48 09:36:00 Test Item Value Reference Range Interpretation Comments B/C Ratio (test code = B/C Ratio) 17 6-25 [facility] HospitalNpnokyxWIIRXXHSNOPW1595-54-38 09:36:00 Test Item Value Reference Range Interpretation Comments Globulin (test code = Globulin) 3.5 2.7-4.2 [facility] HospitalDyoaeurMCAZNHYOZOYF9786-22-26 09:36:00 Test Item Value Reference Range Interpretation Comments A/G Ratio (test code = A/G Ratio) 0.5 0.7-1.6 [facility]IdsuprtKZRPZBBJJMGD9428-85-71 09:36:00 Test Item Value Reference Range Interpretation Comments eGFR (test code = eGFR) 85 [facility] HospitalReciaedHMAEDNLJTFZB3710-28-00 09:36:00 Test Item Value Reference Range Interpretation Comments Total Protein (test code = Total 5.2 6.4-8.4 Protein) [facility] HospitalGjcrkfhTCRBBXGUFJYF0720-72-73 09:36:00 Test Item Value Reference Range Interpretation Comments Albumin Lvl (test code = Albumin Lvl) 1.7 3.5-5.0 [facility] HospitalMgxqsbfYJAYHKVANOLL0381-27-67 09:36:00 Test Item Value Reference Range Interpretation Comments ALT (test code = ALT) 18 See_Comment [Auto mated message] The system which ge nerated this result transmit stuart reference range : <=65. The reference range was not used to interpr et this result as cherry l/abnormal. [facility] HospitalAwvpvyqUWPUWHLYFAZC4219-54-14 09:36:00 Test Item Value Reference Range Interpretation Comments CO2 (test code = CO2) 36 24-32 [facility]XyjubszUGLTAKXEJCNL3572-82-40 09:36:00 Test Item Value Reference Range Interpretation Comments Calcium Lvl (test code = Calcium Lvl) 9.1 8.5-10.5 [facility] HospitalPndtutmKCBGTDYUHHXA5953-14-36 09:36:00 Test Item Value Reference Range Interpretation Comments AST (test code = AST) 16 See_Comment [Auto mated message] The system which ge nerated this result transmit stuart reference range : <=37. The reference range was not used to interpr et this result as cherry l/abnormal. [facility] HospitalDdcxlrqHSCUZGTYNIKP0929-79-37 09:36:00 Test Item Value Reference Range Interpretation Comments Alk Phos (test code = Alk Phos) 38 39-136 [facility] HospitalKdsmuxiKXGSYJCEJRHX1879-80-24 09:36:00 Test Item Value Reference Range Interpretation Comments Bili Total (test code = Bili Total) 0.3 0.2-1.3 [facility] HospitalJelpryxUDDPYVVDQOQI4776-52-19 09:36:00 Test Item Value Reference Range Interpretation Comments Creatinine Lvl (test code = Creatinine 0.88 0.50-1.40 Lvl) [facility] HospitalEwerbgqTPXHKAFIMUKY8717-18-99 09:36:00 Test Item Value Reference Range Interpretation Comments Sodium Lvl (test code = Sodium Lvl) 136 135-145 [facility] HospitalXdljyemFJFVCFFJIRJC6239-88-11 09:36:00 Test Item Value Reference Range Interpretation Comments Potassium Lvl (test code = Potassium 3.7 3.5-5.1 Lvl) [facility] HospitalWtkllreBRSWKKCOKTAS0033-00-37 09:36:00 Test Item Value Reference Range Interpretation Comments Chloride Lvl (test code = Chloride Lvl) 97 95-109 [facility] HospitalWcxrhpsWKWHAVLNVIZF3696-59-92 09:36:00 Test Item Value Reference Range Interpretation Comments BUN (test code = BUN) 15 7-22 [facility] HospitalThiilvoINFNCPMXVRSB4262-96-96 09:36:00 Test Item Value Reference Range Interpretation Comments Glucose Lvl (test code = Glucose Lvl) 135 70-99 [facility] HospitalHacaivbPRGOCCQRFB4546-13-85 09:36:00 Test Item Value Reference Range Interpretation Comments Platelet (test code = Platelet) 327 133-450 [facility] HospitalDuskrujFBXIJPOXAO1092-08-61 09:36:00 Test Item Value Reference Range Interpretation Comments MPV (test code = MPV) 8.6 7.4-10.4 [facility] HospitalKlwobmaXLKZUNAPLB0329-52-21 09:36:00 Test Item Value Reference Range Interpretation Comments Hct (test code = Hct) 30.7 42.0-54.0 [facility] HospitalMrgxonqPEEYWDGTDA3670-41-90 09:36:00 Test Item Value Reference Range Interpretation Comments MCV (test code = MCV) 88.8 80.0-94.0 [facility] HospitalMjjkjwsPTUGHOXMDJ7814-43-72 09:36:00 Test Item Value Reference Range Interpretation Comments RBC (test code = RBC) 3.46 4.70-6.10 [facility] HospitalLasycaiTJJZQVUHGT0568-06-45 09:36:00 Test Item Value Reference Range Interpretation Comments Hgb (test code = Hgb) 10.4 14.0-18.0 [facility] HospitalYqduxnnIPJHSCEGSC9553-17-52 09:36:00 Test Item Value Reference Range Interpretation Comments RDW (test code = RDW) 14.2 11.5-14.5 [facility] HospitalIkclcdoEXWMXAWSGO8367-18-06 09:36:00 Test Item Value Reference Range Interpretation Comments MCHC (test code = MCHC) 33.8 32.0-36.0 [facility] HospitalCbrrzgxWMVXFUOGXU3786-01-62 09:36:00 Test Item Value Reference Range Interpretation Comments MCH (test code = MCH) 30.0 pg 27.0-31.0 [facility] HospitalSyjzhbxNNPNHKOTFR3717-72-22 09:36:00 Test Item Value Reference Range Interpretation Comments WBC (test code = WBC) 11.4 3.7-10.4 [facility] HospitalMoqjeveEZESDCNRYI4165-57-02 09:36:00 Test Item Value Reference Range Interpretation Comments Monocytes # (test code 1.5 See_Comment [Aut omated message] The = Monocytes #) system which generated this result tra nsmitted reference range : <=0.8. The reference r jose alfredo was not used to int erpret this result as normal/abnormal . [facility] HospitalGfsbkxkROAUOEOTZC2920-07-42 09:36:00 Test Item Value Reference Range Interpretation Comments Eosinophils # (test code 0.2 See_Comment [A utomated message] The = Eosinophils #) system whic h generated this result tra nsmitted reference range : <=0.5. The reference r jose alfredo was not used to int erpret this result as normal/abnormal . [facility] HospitalBsuurdoLBTYRJJLCT1484-25-87 09:36:00 Test Item Value Reference Range Interpretation Comments Lymphocytes # (test code = Lymphocytes 1.3 1.0-5.5 #) [facility] HospitalCadkaphGIADQOJGQC0681-62-85 09:36:00 Test Item Value Reference Range Interpretation Comments Segs-Bands # (test code = Segs-Bands #) 8.3 1.5-8.1 [facility] HospitalUtxmmwbJQJIIMPQCY4114-49-34 09:36:00 Test Item Value Reference Range Interpretation Comments Eosinophils (test code = 2.0 See_Comment [A utomated message] The Eosinophils) system which ge nerated this result tra nsmitted reference range : <=4.0. The reference r jose alfredo was not used to int erpret this result as normal/abnormal . [facility] HospitalOrrcyqiGSPPOBYWKR7307-67-76 09:36:00 Test Item Value Reference Range Interpretation Comments Monocytes (test code = Monocytes) 13.2 2.0-12.0 [facility] HospitalMzogfnaTUUPXYYQIW1798-55-66 09:36:00 Test Item Value Reference Range Interpretation Comments Lymphocytes (test code = Lymphocytes) 11.1 20.0-40.0 [facility] HospitalMeiyriiSQQESQBWCI1639-55-00 09:36:00 Test Item Value Reference Range Interpretation Comments Segs (test code = Segs) 73.2 45.0-75.0 [facility] HospitalVpmohkhBAGUDZSHLP1425-20-88 09:36:00 Test Item Value Reference Range Interpretation Comments Basophils # (test code 0.1 See_Comment [Aut omated message] The = Basophils #) system which generated this result tra nsmitted reference range : <=0.2. The reference r jose alfredo was not used to int erpret this result as normal/abnormal . [facility] HospitalBogsvhdISSFCORRKD2933-02-40 09:36:00 Test Item Value Reference Range Interpretation Comments Basophils (test code = 0.5 See_Comment [Aut omated message] The Basophils) system which ge nerated this result tra nsmitted reference range : <=1.0. The reference r jose alfredo was not used to int erpret this result as normal/abnormal . [facility]AfoefhjVWBAGLRMKDSJ9767-26-81 09:36:00 Test Item Value Reference Range Interpretation Comments AGAP (test code = AGAP) 6.7 10.0-20.0 [facility] HospitalAwuatqoUMNGXHJXTSLB2437-47-95 09:36:00 Test Item Value Reference Range Interpretation Comments B/C Ratio (test code = B/C Ratio) 17 6-25 [facility] HospitalBvklkgtPHZCMKIQSJQT6401-66-09 09:36:00 Test Item Value Reference Range Interpretation Comments Globulin (test code = Globulin) 3.5 2.7-4.2 [facility] HospitalQqvexniLNSWGOORALHU6427-75-77 09:36:00 Test Item Value Reference Range Interpretation Comments A/G Ratio (test code = A/G Ratio) 0.5 0.7-1.6 [facility] HospitalDwjhrjhCTDJARGVXAWM4762-18-45 09:36:00 Test Item Value Reference Range Interpretation Comments eGFR (test code = eGFR) 85 [facility] HospitalPudqbmzWSRJSJDTYGEL6391-57-26 09:36:00 Test Item Value Reference Range Interpretation Comments Total Protein (test code = Total 5.2 6.4-8.4 Protein) [facility] HospitalYtpsugsSFKUTHXKIGWC1604-58-51 09:36:00 Test Item Value Reference Range Interpretation Comments Albumin Lvl (test code = Albumin Lvl) 1.7 3.5-5.0 [facility] HospitalHhdbjhpWDCUDWRXAVBZ2590-06-65 09:36:00 Test Item Value Reference Range Interpretation Comments ALT (test code = ALT) 18 See_Comment [Auto mated message] The system which ge nerated this result transmit stuart reference range : <=65. The reference range was not used to interpr et this result as cherry l/abnormal. [facility] HospitalVrmxveuXGYXIZWAQIYD8986-72-56 09:36:00 Test Item Value Reference Range Interpretation Comments CO2 (test code = CO2) 36 24-32 [facility] HospitalDadgfanYBILXCZGIJQA2348-08-51 09:36:00 Test Item Value Reference Range Interpretation Comments Calcium Lvl (test code = Calcium Lvl) 9.1 8.5-10.5 [facility] HospitalRufltfzHLYGTIOWJXGD0373-21-13 09:36:00 Test Item Value Reference Range Interpretation Comments AST (test code = AST) 16 See_Comment [Auto mated message] The system which ge nerated this result transmit stuart reference range : <=37. The reference range was not used to interpr et this result as cherry l/abnormal. [facility] HospitalHcpihnkADKMZLTAUCJY1614-51-54 09:36:00 Test Item Value Reference Range Interpretation Comments Alk Phos (test code = Alk Phos) 38 39-136 [facility] HospitalXnhcymrONQMTZXYIELU5885-50-41 09:36:00 Test Item Value Reference Range Interpretation Comments Bili Total (test code = Bili Total) 0.3 0.2-1.3 [facility] HospitalIurmyvnLIPUHMIYDOPK4733-88-39 09:36:00 Test Item Value Reference Range Interpretation Comments Creatinine Lvl (test code = Creatinine 0.88 0.50-1.40 Lvl) [facility] HospitalUfbmtzoOASPJSHHWJBH6059-20-68 09:36:00 Test Item Value Reference Range Interpretation Comments Sodium Lvl (test code = Sodium Lvl) 136 135-145 [facility] HospitalOxstrqnZWDPHVKGDYIO9823-10-51 09:36:00 Test Item Value Reference Range Interpretation Comments Potassium Lvl (test code = Potassium 3.7 3.5-5.1 Lvl) [facility] HospitalBrtodfwZRSDDXIKHZDI2222-56-38 09:36:00 Test Item Value Reference Range Interpretation Comments Chloride Lvl (test code = Chloride Lvl) 97 95-109 [facility] HospitalMrjnglmQJXECVZLNHMO8729-10-97 09:36:00 Test Item Value Reference Range Interpretation Comments BUN (test code = BUN) 15 7-22 [facility] HospitalDpkpvtbBFGFYXOXHBFG4095-67-80 09:36:00 Test Item Value Reference Range Interpretation Comments Glucose Lvl (test code = Glucose Lvl) 135 70-99 [facility] HospitalMtlvtzoSBEJWOGCQD8320-67-26 09:36:00 Test Item Value Reference Range Interpretation Comments Platelet (test code = Platelet) 327 133-450 [facility] HospitalDvhwtciBYJRPSHHOE4825-02-89 09:36:00 Test Item Value Reference Range Interpretation Comments MPV (test code = MPV) 8.6 7.4-10.4 [facility] HospitalAcfesznVRUBROWJCZ6814-04-50 09:36:00 Test Item Value Reference Range Interpretation Comments Hct (test code = Hct) 30.7 42.0-54.0 [facility] HospitalFmtsunrRTGEIDTEVZ4788-47-55 09:36:00 Test Item Value Reference Range Interpretation Comments MCV (test code = MCV) 88.8 80.0-94.0 [facility] HospitalHfgqglwQGVJFCNVNC3630-49-21 09:36:00 Test Item Value Reference Range Interpretation Comments RBC (test code = RBC) 3.46 4.70-6.10 [facility] HospitalFpdvrcrJPXMCNAPMM5402-58-98 09:36:00 Test Item Value Reference Range Interpretation Comments Hgb (test code = Hgb) 10.4 14.0-18.0 [facility] HospitalOlretgsRZDHXHRLAK1193-76-30 09:36:00 Test Item Value Reference Range Interpretation Comments RDW (test code = RDW) 14.2 11.5-14.5 [facility] HospitalBknrfcySQINHPPBMS3707-85-47 09:36:00 Test Item Value Reference Range Interpretation Comments MCHC (test code = MCHC) 33.8 32.0-36.0 [facility] HospitalHqyneviPBIEBRIIIZ1333-31-39 09:36:00 Test Item Value Reference Range Interpretation Comments MCH (test code = MCH) 30.0 pg 27.0-31.0 [facility] HospitalRfpiepgCVLXDHEIMJ3448-38-94 09:36:00 Test Item Value Reference Range Interpretation Comments WBC (test code = WBC) 11.4 3.7-10.4 [facility] HospitalVykcgjzLOVPSRPVHW9356-03-74 09:36:00 Test Item Value Reference Range Interpretation Comments Monocytes # (test code 1.5 See_Comment [Aut omated message] The = Monocytes #) system which generated this result tra nsmitted reference range : <=0.8. The reference r jose alfredo was not used to int erpret this result as normal/abnormal . [facility] HospitalZippkocCZADDNQAOD3268-69-97 09:36:00 Test Item Value Reference Range Interpretation Comments Eosinophils # (test code 0.2 See_Comment [A utomated message] The = Eosinophils #) system whic h generated this result tra nsmitted reference range : <=0.5. The reference r jose alfredo was not used to int erpret this result as normal/abnormal . [facility] HospitalTkfhmutWFHACOGTPE7368-72-50 09:36:00 Test Item Value Reference Range Interpretation Comments Lymphocytes # (test code = Lymphocytes 1.3 1.0-5.5 #) [facility] HospitalPioelpyZFDVGZPHVO7797-41-51 09:36:00 Test Item Value Reference Range Interpretation Comments Segs-Bands # (test code = Segs-Bands #) 8.3 1.5-8.1 [facility] HospitalQlujvksSZRTDPZGKY5493-67-69 09:36:00 Test Item Value Reference Range Interpretation Comments Eosinophils (test code = 2.0 See_Comment [A utomated message] The Eosinophils) system which ge nerated this result tra nsmitted reference range : <=4.0. The reference r jose alfredo was not used to int erpret this result as normal/abnormal . [facility] HospitalUysuptxLLZGLAWFAP2784-04-74 09:36:00 Test Item Value Reference Range Interpretation Comments Monocytes (test code = Monocytes) 13.2 2.0-12.0 [facility] HospitalCejpkabYJBJTQZUDI3495-33-58 09:36:00 Test Item Value Reference Range Interpretation Comments Lymphocytes (test code = Lymphocytes) 11.1 20.0-40.0 [facility] HospitalWzuvbprPGPFJRNPZH6443-71-47 09:36:00 Test Item Value Reference Range Interpretation Comments Segs (test code = Segs) 73.2 45.0-75.0 [facility] HospitalVohvuxiZPHKLITBVS5007-24-58 09:36:00 Test Item Value Reference Range Interpretation Comments Basophils # (test code 0.1 See_Comment [Aut omated message] The = Basophils #) system which generated this result tra nsmitted reference range : <=0.2. The reference r jose alfredo was not used to int erpret this result as normal/abnormal . [facility] HospitalDfgwrlhBYPYAGLCDY9333-86-15 09:36:00 Test Item Value Reference Range Interpretation Comments Basophils (test code = 0.5 See_Comment [Aut omated message] The Basophils) system which ge nerated this result tra nsmitted reference range : <=1.0. The reference r jose alfredo was not used to int erpret this result as normal/abnormal . [facility]UxkalbcFVXNQFAGSNOQ7474-87-15 09:36:00 Test Item Value Reference Range Interpretation Comments AGAP (test code = AGAP) 6.7 10.0-20.0 [facility] HospitalRkzjalaHMWGZYLBHADN1846-82-62 09:36:00 Test Item Value Reference Range Interpretation Comments B/C Ratio (test code = B/C Ratio) 17 6-25 [facility]YkqgrzhFHVOXPGOUXSD1843-06-34 09:36:00 Test Item Value Reference Range Interpretation Comments Globulin (test code = Globulin) 3.5 2.7-4.2 [facility] HospitalDqeieleRGKFOCTEZNQF2726-38-83 09:36:00 Test Item Value Reference Range Interpretation Comments A/G Ratio (test code = A/G Ratio) 0.5 0.7-1.6 [facility]QvjxuxpVQIOMUOFPTGY3393-01-98 09:36:00 Test Item Value Reference Range Interpretation Comments eGFR (test code = eGFR) 85 [facility] HospitalNbahbeiVDHEQJXEUHEC2315-88-29 09:36:00 Test Item Value Reference Range Interpretation Comments Total Protein (test code = Total 5.2 6.4-8.4 Protein) [facility] HospitalZzijsvbBTCQGFCAQAZI0309-10-31 09:36:00 Test Item Value Reference Range Interpretation Comments Albumin Lvl (test code = Albumin Lvl) 1.7 3.5-5.0 [facility] HospitalTrtnpodIFIUTOLODMJH1722-56-94 09:36:00 Test Item Value Reference Range Interpretation Comments ALT (test code = ALT) 18 See_Comment [Auto mated message] The system which ge nerated this result transmit stuart reference range : <=65. The reference range was not used to interpr et this result as cherry l/abnormal. [facility]WluyjmxQWNTHPBZNQEO1511-10-84 09:36:00 Test Item Value Reference Range Interpretation Comments CO2 (test code = CO2) 36 24-32 [facility]PejoqbgYQWDYASUUIHK1137-07-66 09:36:00 Test Item Value Reference Range Interpretation Comments Calcium Lvl (test code = Calcium Lvl) 9.1 8.5-10.5 [facility] HospitalCzdbphlNJJTGJEGJRHS9128-85-00 09:36:00 Test Item Value Reference Range Interpretation Comments AST (test code = AST) 16 See_Comment [Auto mated message] The system which ge nerated this result transmit stuart reference range : <=37. The reference range was not used to interpr et this result as cherry l/abnormal. [facility]SqgqgypSKEGWLWSIHZH8648-79-87 09:36:00 Test Item Value Reference Range Interpretation Comments Alk Phos (test code = Alk Phos) 38 39-136 [facility] HospitalJipbmhrXBNUTJPDHUET0436-24-58 09:36:00 Test Item Value Reference Range Interpretation Comments Bili Total (test code = Bili Total) 0.3 0.2-1.3 [facility] HospitalFgglhguCYUWPCMIJTAQ4972-26-70 09:36:00 Test Item Value Reference Range Interpretation Comments Creatinine Lvl (test code = Creatinine 0.88 0.50-1.40 Lvl) [facility]SqrtkzySCRGCPCTJYPA8229-27-01 09:36:00 Test Item Value Reference Range Interpretation Comments Sodium Lvl (test code = Sodium Lvl) 136 135-145 [facility] HospitalAexjxsbZDGOEUKPUHVI3588-06-45 09:36:00 Test Item Value Reference Range Interpretation Comments Potassium Lvl (test code = Potassium 3.7 3.5-5.1 Lvl) [facility] HospitalQyjboltLQORJIGWBIKI0752-26-28 09:36:00 Test Item Value Reference Range Interpretation Comments Chloride Lvl (test code = Chloride Lvl) 97 95-109 [facility] HospitalKuqdmukRAOLVKQEMHFK7858-98-04 09:36:00 Test Item Value Reference Range Interpretation Comments BUN (test code = BUN) 15 7-22 [facility] HospitalPjbuuweYGUMVAYSINNX8091-23-67 09:36:00 Test Item Value Reference Range Interpretation Comments Glucose Lvl (test code = Glucose Lvl) 135 70-99 [facility]HaisnzaKKCKSKTRHX8258-07-33 09:36:00 Test Item Value Reference Range Interpretation Comments Platelet (test code = Platelet) 327 537-450 [facility] HospitalDumquekXSVAAGIVKT0818-70-03 09:36:00 Test Item Value Reference Range Interpretation Comments MPV (test code = MPV) 8.6 7.4-10.4 [facility] HospitalBefooauKVASXTSACB8790-74-07 09:36:00 Test Item Value Reference Range Interpretation Comments Hct (test code = Hct) 30.7 42.0-54.0 [facility] HospitalYbriqeaVKPYEORXWD1842-86-06 09:36:00 Test Item Value Reference Range Interpretation Comments MCV (test code = MCV) 88.8 80.0-94.0 [facility] HospitalObqsmkeKNYLQUHSCO4992-17-43 09:36:00 Test Item Value Reference Range Interpretation Comments RBC (test code = RBC) 3.46 4.70-6.10 [facility] HospitalVwjttqgSDISTFXYPN3558-49-24 09:36:00 Test Item Value Reference Range Interpretation Comments Hgb (test code = Hgb) 10.4 14.0-18.0 [facility] HospitalMtwmqbfQFWNPLSBVO2958-33-30 09:36:00 Test Item Value Reference Range Interpretation Comments RDW (test code = RDW) 14.2 11.5-14.5 [facility] HospitalIilgegsXPYSYVYVOG5429-30-98 09:36:00 Test Item Value Reference Range Interpretation Comments MCHC (test code = MCHC) 33.8 32.0-36.0 [facility] HospitalZiokvdfZDTVDIRABB4280-85-22 09:36:00 Test Item Value Reference Range Interpretation Comments MCH (test code = MCH) 30.0 pg 27.0-31.0 [facility] HospitalTttwpjyGHBZIWVNPV0449-15-00 09:36:00 Test Item Value Reference Range Interpretation Comments WBC (test code = WBC) 11.4 3.7-10.4 [facility] HospitalMrkevagPLEEUWSIAJ3317-21-70 09:36:00 Test Item Value Reference Range Interpretation Comments Monocytes # (test code 1.5 See_Comment [Aut omated message] The = Monocytes #) system which generated this result tra nsmitted reference range : <=0.8. The reference r jose alfredo was not used to int erpret this result as normal/abnormal . [facility] HospitalYmwkxyhSRMNNUKOVP7501-64-06 09:36:00 Test Item Value Reference Range Interpretation Comments Eosinophils # (test code 0.2 See_Comment [A utomated message] The = Eosinophils #) system whic h generated this result tra nsmitted reference range : <=0.5. The reference r jose alfredo was not used to int erpret this result as normal/abnormal . [facility] HospitalRzhxbkqMTVMQCIFGH4272-21-80 09:36:00 Test Item Value Reference Range Interpretation Comments Lymphocytes # (test code = Lymphocytes 1.3 1.0-5.5 #) [facility] HospitalYxmadmiEIWUQGNSBC9511-96-18 09:36:00 Test Item Value Reference Range Interpretation Comments Segs-Bands # (test code = Segs-Bands #) 8.3 1.5-8.1 [facility] HospitalGvrnmmsDLUSBAHCQS6711-24-01 09:36:00 Test Item Value Reference Range Interpretation Comments Eosinophils (test code = 2.0 See_Comment [A utomated message] The Eosinophils) system which ge nerated this result tra nsmitted reference range : <=4.0. The reference r jose alfredo was not used to int erpret this result as normal/abnormal . [facility] HospitalVlfdlsnQLQTKGLFWN1012-34-04 09:36:00 Test Item Value Reference Range Interpretation Comments Monocytes (test code = Monocytes) 13.2 2.0-12.0 [facility] HospitalFnaglzvEHFLCTMBSR2228-84-63 09:36:00 Test Item Value Reference Range Interpretation Comments Lymphocytes (test code = Lymphocytes) 11.1 20.0-40.0 [facility] HospitalOaexbiqVJPIPBKIOF3187-87-50 09:36:00 Test Item Value Reference Range Interpretation Comments Segs (test code = Segs) 73.2 45.0-75.0 [facility] HospitalSjyrwrnVZBGRDFQCG9285-84-82 09:36:00 Test Item Value Reference Range Interpretation Comments Basophils # (test code 0.1 See_Comment [Aut omated message] The = Basophils #) system which generated this result tra nsmitted reference range : <=0.2. The reference r jose alfredo was not used to int erpret this result as normal/abnormal . [facility] HospitalAdvlmidKIZXFLWVGW0369-72-16 09:36:00 Test Item Value Reference Range Interpretation Comments Basophils (test code = 0.5 See_Comment [Aut omated message] The Basophils) system which ge nerated this result tra nsmitted reference range : <=1.0. The reference r jose alfredo was not used to int erpret this result as normal/abnormal . [facility]2017-10-04 15:09:00 Test Item Value Reference Range Interpretation Comments B/C Ratio (test code = B/C Ratio) 15 6-25 [facility]2017-10-04 15:09:00 Test Item Value Reference Range Interpretation Comments Globulin (test code = Globulin) 3.7 2.7-4.2 [facility]2017-10-04 15:09:00 Test Item Value Reference Range Interpretation Comments A/G Ratio (test code = A/G Ratio) 0.5 0.7-1.6 [facility]2017-10-04 15:09:00 Test Item Value Reference Range Interpretation Comments AGAP (test code = AGAP) 10.8 10.0-20.0 [facility]2017-10-04 15:09:00 Test Item Value Reference Range Interpretation Comments eGFR (test code = eGFR) 83 [facility]2017-10-04 15:09:00 Test Item Value Reference Range Interpretation Comments Alk Phos (test code = Alk Phos) 43 39-136 [facility]2017-10-04 15:09:00 Test Item Value Reference Range Interpretation Comments Bili Total (test code = Bili Total) 0.3 0.2-1.3 [facility]2017-10-04 15:09:00 Test Item Value Reference Range Interpretation Comments Total Protein (test code = Total 5.4 6.4-8.4 Protein) [facility]2017-10-04 15:09:00 Test Item Value Reference Range Interpretation Comments Calcium Lvl (test code = Calcium Lvl) 8.9 8.5-10.5 [facility]2017-10-04 15:09:00 Test Item Value Reference Range Interpretation Comments Albumin Lvl (test code = Albumin Lvl) 1.7 3.5-5.0 [facility]2017-10-04 15:09:00 Test Item Value Reference Range Interpretation Comments CO2 (test code = CO2) 35 24-32 [facility]2017-10-04 15:09:00 Test Item Value Reference Range Interpretation Comments ALT (test code = ALT) 21 See_Comment [Auto mated message] The system which ge nerated this result transmit stuart reference range : <=65. The reference range was not used to interpr et this result as cherry l/abnormal. [facility]2017-10-04 15:09:00 Test Item Value Reference Range Interpretation Comments AST (test code = AST) 19 See_Comment [Auto mated message] The system which ge nerated this result transmit stuart reference range : <=37. The reference range was not used to interpr et this result as cherry l/abnormal. [facility]2017-10-04 15:09:00 Test Item Value Reference Range Interpretation Comments Creatinine Lvl (test code = Creatinine 0.91 0.50-1.40 Lvl) [facility]2017-10-04 15:09:00 Test Item Value Reference Range Interpretation Comments Sodium Lvl (test code = Sodium Lvl) 135 135-145 [facility]2017-10-04 15:09:00 Test Item Value Reference Range Interpretation Comments BUN (test code = BUN) 14 7-22 [facility]2017-10-04 15:09:00 Test Item Value Reference Range Interpretation Comments Chloride Lvl (test code = Chloride Lvl) 93 95-109 [facility]2017-10-04 15:09:00 Test Item Value Reference Range Interpretation Comments Potassium Lvl (test code = Potassium 3.8 3.5-5.1 Lvl) [facility]2017-10-04 15:09:00 Test Item Value Reference Range Interpretation Comments Glucose Lvl (test code = Glucose Lvl) 145 70-99 [facility] HospitalBfnddusPXJMRQEEKL9265-88-19 15:09:00 Test Item Value Reference Range Interpretation Comments Spherocyte (test code = Moderate Spherocyte) *ABN*(06/04/17 10:09 AM) [facility] HospitalXopszwhVIAVOLIGBX3007-24-88 15:09:00 Test Item Value Reference Range Interpretation Comments RBC Morph (test code = Normal (06/04/17 10:09 RBC Morph) AM) [facility] HospitalDzlxhhlZLDXQBULRU3882-14-44 15:09:00 Test Item Value Reference Range Interpretation Comments Large Plt (test code Moderate *ABN*(06/04/17 = Large Plt) 10:09 AM) [facility] HospitalAqmmrtoBJNWYSZDCM2181-16-03 15:09:00 Test Item Value Reference Range Interpretation Comments Toxic Gran (test code Moderate *ABN*(06/04/17 = Toxic Gran) 10:09 AM) [facility] HospitalQdzxbctTDXAFNOTHT9897-78-01 15:09:00 Test Item Value Reference Range Interpretation Comments Lymphocytes (test code = Lymphocytes) 8.0 20.0-40.0 [facility] HospitalMglemsePSTVBYYLJZ8464-90-60 15:09:00 Test Item Value Reference Range Interpretation Comments Bands (test code = 4.0 See_Comment [Automat ed message] The Bands) system which ge nerated this result transmit stuart reference range : <=11.0. The reference r jose alfredo was not used to interpr et this result as cherry l/abnormal. [facility] HospitalZvialogKITCPCLBPO6130-60-46 15:09:00 Test Item Value Reference Range Interpretation Comments Atypical Lymphs (test code = Atypical 0.0 Lymphs) [facility] HospitalEurcvxpJWMYUUXUHT1083-78-89 15:09:00 Test Item Value Reference Range Interpretation Comments Eosinophils (test code = 1.0 See_Comment [A utomated message] The Eosinophils) system which ge nerated this result tra nsmitted reference range : <=4.0. The reference r jose alfredo was not used to int erpret this result as normal/abnormal . [facility] HospitalCvrcjpeQJWBHQLWVG8073-13-08 15:09:00 Test Item Value Reference Range Interpretation Comments Monocytes (test code = Monocytes) 7.0 2.0-12.0 [facility] HospitalWttdwmfHMIYMAQZYD7611-73-26 15:09:00 Test Item Value Reference Range Interpretation Comments Segs (test code = Segs) 80.0 45.0-75.0 [facility] HospitalDpworxqMNFRDMYTXX6564-25-60 15:09:00 Test Item Value Reference Range Interpretation Comments Eosinophils # (test code 0.1 See_Comment [A utomated message] The = Eosinophils #) system whic h generated this result tra nsmitted reference range : <=0.5. The reference r jose alfredo was not used to int erpret this result as normal/abnormal . [facility] HospitalVvnepugSYLUIIYRZU9727-41-81 15:09:00 Test Item Value Reference Range Interpretation Comments Segs-Bands # (test code = Segs-Bands #) 11.8 1.5-8.1 [facility] HospitalTxstctwBIKXZCCKVK2329-20-68 15:09:00 Test Item Value Reference Range Interpretation Comments Monocytes # (test code 1.0 See_Comment [Aut omated message] The = Monocytes #) system which generated this result tra nsmitted reference range : <=0.8. The reference r jose alfredo was not used to int erpret this result as normal/abnormal . [facility] HospitalAdarxodJGQIIWFUEM5345-35-22 15:09:00 Test Item Value Reference Range Interpretation Comments Lymphocytes # (test code = Lymphocytes 1.1 1.0-5.5 #) [facility] HospitalLxshwvoQWOAVKIHTT5090-71-27 15:09:00 Test Item Value Reference Range Interpretation Comments MCH (test code = MCH) 29.7 pg 27.0-31.0 [facility] HospitalLrafhuxFGPRLCHWBU5446-53-24 15:09:00 Test Item Value Reference Range Interpretation Comments Hct (test code = Hct) 32.8 42.0-54.0 [facility] HospitalYvytzewDZTVHOBAVE9297-05-53 15:09:00 Test Item Value Reference Range Interpretation Comments Hgb (test code = Hgb) 11.0 14.0-18.0 [facility] HospitalPqaaxgdMOBULWKACC7297-34-16 15:09:00 Test Item Value Reference Range Interpretation Comments RBC (test code = RBC) 3.68 4.70-6.10 [facility] HospitalXqqcsosBRESTYEJGF1821-08-63 15:09:00 Test Item Value Reference Range Interpretation Comments MCV (test code = MCV) 89.0 80.0-94.0 [facility] HospitalWpbtgyrBFSVGZNEQR3700-97-83 15:09:00 Test Item Value Reference Range Interpretation Comments WBC (test code = WBC) 14.0 3.7-10.4 [facility] HospitalWcdfensABXHZFGMMM9405-14-79 15:09:00 Test Item Value Reference Range Interpretation Comments RDW (test code = RDW) 14.4 11.5-14.5 [facility] HospitalGqkahspKRKREORIXK5277-78-27 15:09:00 Test Item Value Reference Range Interpretation Comments Platelet (test code = Platelet) 336 133-450 [facility] HospitalYuolzdnNTBNEDRVBU7912-11-20 15:09:00 Test Item Value Reference Range Interpretation Comments MPV (test code = MPV) 8.5 7.4-10.4 [facility] HospitalOrozyijOFCGAKNKIL0131-76-17 15:09:00 Test Item Value Reference Range Interpretation Comments MCHC (test code = MCHC) 33.4 32.0-36.0 [facility]2017-10-04 15:09:00 Test Item Value Reference Range Interpretation Comments B/C Ratio (test code = B/C Ratio) 15 6-25 [facility]2017-10-04 15:09:00 Test Item Value Reference Range Interpretation Comments Globulin (test code = Globulin) 3.7 2.7-4.2 [facility]2017-10-04 15:09:00 Test Item Value Reference Range Interpretation Comments A/G Ratio (test code = A/G Ratio) 0.5 0.7-1.6 [facility]2017-10-04 15:09:00 Test Item Value Reference Range Interpretation Comments AGAP (test code = AGAP) 10.8 10.0-20.0 [facility]2017-10-04 15:09:00 Test Item Value Reference Range Interpretation Comments eGFR (test code = eGFR) 83 [facility]2017-10-04 15:09:00 Test Item Value Reference Range Interpretation Comments Alk Phos (test code = Alk Phos) 43 39-136 [facility]2017-10-04 15:09:00 Test Item Value Reference Range Interpretation Comments Bili Total (test code = Bili Total) 0.3 0.2-1.3 [facility]2017-10-04 15:09:00 Test Item Value Reference Range Interpretation Comments Total Protein (test code = Total 5.4 6.4-8.4 Protein) [facility]2017-10-04 15:09:00 Test Item Value Reference Range Interpretation Comments Calcium Lvl (test code = Calcium Lvl) 8.9 8.5-10.5 [facility]2017-10-04 15:09:00 Test Item Value Reference Range Interpretation Comments Albumin Lvl (test code = Albumin Lvl) 1.7 3.5-5.0 [facility]2017-10-04 15:09:00 Test Item Value Reference Range Interpretation Comments CO2 (test code = CO2) 35 24-32 [facility]2017-10-04 15:09:00 Test Item Value Reference Range Interpretation Comments ALT (test code = ALT) 21 See_Comment [Auto mated message] The system which ge nerated this result transmit stuart reference range : <=65. The reference range was not used to interpr et this result as cherry l/abnormal. [facility]2017-10-04 15:09:00 Test Item Value Reference Range Interpretation Comments AST (test code = AST) 19 See_Comment [Auto mated message] The system which ge nerated this result transmit stuart reference range : <=37. The reference range was not used to interpr et this result as cherry l/abnormal. [facility]2017-10-04 15:09:00 Test Item Value Reference Range Interpretation Comments Creatinine Lvl (test code = Creatinine 0.91 0.50-1.40 Lvl) [facility]2017-10-04 15:09:00 Test Item Value Reference Range Interpretation Comments Sodium Lvl (test code = Sodium Lvl) 135 135-145 [facility]2017-10-04 15:09:00 Test Item Value Reference Range Interpretation Comments BUN (test code = BUN) 14 7-22 [facility]2017-10-04 15:09:00 Test Item Value Reference Range Interpretation Comments Chloride Lvl (test code = Chloride Lvl) 93 95-109 [facility]2017-10-04 15:09:00 Test Item Value Reference Range Interpretation Comments Potassium Lvl (test code = Potassium 3.8 3.5-5.1 Lvl) [facility]2017-10-04 15:09:00 Test Item Value Reference Range Interpretation Comments Glucose Lvl (test code = Glucose Lvl) 145 70-99 [facility] HospitalAkvwnltZZZICBEYGS8949-79-71 15:09:00 Test Item Value Reference Range Interpretation Comments Spherocyte (test code = Moderate Spherocyte) *ABN*(06/04/17 10:09 AM) [facility] HospitalBouyxhyBQMAJYUABZ7388-29-03 15:09:00 Test Item Value Reference Range Interpretation Comments RBC Morph (test code = Normal (06/04/17 10:09 RBC Morph) AM) [facility] HospitalDlsxyqmILHSDQNKAH1427-04-98 15:09:00 Test Item Value Reference Range Interpretation Comments Large Plt (test code Moderate *ABN*(06/04/17 = Large Plt) 10:09 AM) [facility] HospitalDxdasxqGCUJANMLPK8089-18-91 15:09:00 Test Item Value Reference Range Interpretation Comments Toxic Gran (test code Moderate *ABN*(06/04/17 = Toxic Gran) 10:09 AM) [facility] HospitalRtoizoyGPNBNFZKEE3421-61-66 15:09:00 Test Item Value Reference Range Interpretation Comments Lymphocytes (test code = Lymphocytes) 8.0 20.0-40.0 [facility] [facility]LL[facility]VL5225-52-22 15:09:00 Test Item Value Reference Range Interpretation Comments Bands (test code = 4.0 See_Comment [Automat ed message] The Bands) system which ge nerated this result transmit stuart reference range : <=11.0. The reference r jose alfredo was not used to interpr et this result as cherry l/abnormal. [facility] HospitalVdrivhfBYDUQQSSHF5255-88-92 15:09:00 Test Item Value Reference Range Interpretation Comments Atypical Lymphs (test code = Atypical 0.0 Lymphs) [facility] HospitalHejtmmbQYAENWVLHA2586-86-52 15:09:00 Test Item Value Reference Range Interpretation Comments Eosinophils (test code = 1.0 See_Comment [A utomated message] The Eosinophils) system which ge nerated this result tra nsmitted reference range : <=4.0. The reference r jose alfredo was not used to int erpret this result as normal/abnormal . [facility] HospitalWwigqdiUJSLCOORVQ8495-96-06 15:09:00 Test Item Value Reference Range Interpretation Comments Monocytes (test code = Monocytes) 7.0 2.0-12.0 [facility] HospitalFmausrnUFVHBZJAPP4087-54-35 15:09:00 Test Item Value Reference Range Interpretation Comments Segs (test code = Segs) 80.0 45.0-75.0 [facility] HospitalEcaorgdYDZBJYUIIM0359-23-31 15:09:00 Test Item Value Reference Range Interpretation Comments Eosinophils # (test code 0.1 See_Comment [A utomated message] The = Eosinophils #) system whic h generated this result tra nsmitted reference range : <=0.5. The reference r jose alfredo was not used to int erpret this result as normal/abnormal . [facility] HospitalVuhzlskSZDGOIMGDA3544-03-05 15:09:00 Test Item Value Reference Range Interpretation Comments Segs-Bands # (test code = Segs-Bands #) 11.8 1.5-8.1 [facility] HospitalImvsmsbJVLRVIOJHY2554-76-64 15:09:00 Test Item Value Reference Range Interpretation Comments Monocytes # (test code 1.0 See_Comment [Aut omated message] The = Monocytes #) system which generated this result tra nsmitted reference range : <=0.8. The reference r jose alfredo was not used to int erpret this result as normal/abnormal . [facility] HospitalQolpigbRAVXVXXPJW3788-27-94 15:09:00 Test Item Value Reference Range Interpretation Comments Lymphocytes # (test code = Lymphocytes 1.1 1.0-5.5 #) [facility] HospitalHnvzjguTTFHGPPNWY8262-30-98 15:09:00 Test Item Value Reference Range Interpretation Comments MCH (test code = MCH) 29.7 pg 27.0-31.0 [facility] HospitalVsdcfpiLYDAQRYEKL4954-55-63 15:09:00 Test Item Value Reference Range Interpretation Comments Hct (test code = Hct) 32.8 42.0-54.0 [facility] HospitalBmbczwaHTCHBEBKFN3936-44-37 15:09:00 Test Item Value Reference Range Interpretation Comments Hgb (test code = Hgb) 11.0 14.0-18.0 [facility] HospitalDeiojzwJJCSJYYWYB9901-00-41 15:09:00 Test Item Value Reference Range Interpretation Comments RBC (test code = RBC) 3.68 4.70-6.10 [facility] HospitalYuzkyniTTTXAOPFLH4009-82-24 15:09:00 Test Item Value Reference Range Interpretation Comments MCV (test code = MCV) 89.0 80.0-94.0 [facility] HospitalMrxfkpkNQCSBALLLX7020-51-33 15:09:00 Test Item Value Reference Range Interpretation Comments WBC (test code = WBC) 14.0 3.7-10.4 [facility] HospitalEgsvnoeTGODANTQKE0769-21-11 15:09:00 Test Item Value Reference Range Interpretation Comments RDW (test code = RDW) 14.4 11.5-14.5 [facility] HospitalIoafzxtHHQKIVRLBE2212-45-64 15:09:00 Test Item Value Reference Range Interpretation Comments Platelet (test code = Platelet) 336 133-450 [facility] HospitalRqhpncjVVRBFFLJLB7567-70-75 15:09:00 Test Item Value Reference Range Interpretation Comments MPV (test code = MPV) 8.5 7.4-10.4 [facility] HospitalIjtxugfUBTCIEZUPQ4224-83-14 15:09:00 Test Item Value Reference Range Interpretation Comments MCHC (test code = MCHC) 33.4 32.0-36.0 [facility]2017-10-04 15:09:00 Test Item Value Reference Range Interpretation Comments B/C Ratio (test code = B/C Ratio) 15 6-25 [facility]2017-10-04 15:09:00 Test Item Value Reference Range Interpretation Comments Globulin (test code = Globulin) 3.7 2.7-4.2 [facility]2017-10-04 15:09:00 Test Item Value Reference Range Interpretation Comments A/G Ratio (test code = A/G Ratio) 0.5 0.7-1.6 [facility]2017-10-04 15:09:00 Test Item Value Reference Range Interpretation Comments AGAP (test code = AGAP) 10.8 10.0-20.0 [facility]2017-10-04 15:09:00 Test Item Value Reference Range Interpretation Comments eGFR (test code = eGFR) 83 [facility]2017-10-04 15:09:00 Test Item Value Reference Range Interpretation Comments Alk Phos (test code = Alk Phos) 43 39-136 [facility]2017-10-04 15:09:00 Test Item Value Reference Range Interpretation Comments Bili Total (test code = Bili Total) 0.3 0.2-1.3 [facility]2017-10-04 15:09:00 Test Item Value Reference Range Interpretation Comments Total Protein (test code = Total 5.4 6.4-8.4 Protein) [facility]2017-10-04 15:09:00 Test Item Value Reference Range Interpretation Comments Calcium Lvl (test code = Calcium Lvl) 8.9 8.5-10.5 [facility]2017-10-04 15:09:00 Test Item Value Reference Range Interpretation Comments Albumin Lvl (test code = Albumin Lvl) 1.7 3.5-5.0 [facility]2017-10-04 15:09:00 Test Item Value Reference Range Interpretation Comments CO2 (test code = CO2) 35 24-32 [facility]2017-10-04 15:09:00 Test Item Value Reference Range Interpretation Comments ALT (test code = ALT) 21 See_Comment [Auto mated message] The system which ge nerated this result transmit stuart reference range : <=65. The reference range was not used to interpr et this result as cherry l/abnormal. [facility]2017-10-04 15:09:00 Test Item Value Reference Range Interpretation Comments AST (test code = AST) 19 See_Comment [Auto mated message] The system which ge nerated this result transmit stuart reference range : <=37. The reference range was not used to interpr et this result as cherry l/abnormal. [facility]2017-10-04 15:09:00 Test Item Value Reference Range Interpretation Comments Creatinine Lvl (test code = Creatinine 0.91 0.50-1.40 Lvl) [facility]2017-10-04 15:09:00 Test Item Value Reference Range Interpretation Comments Sodium Lvl (test code = Sodium Lvl) 135 135-145 [facility]2017-10-04 15:09:00 Test Item Value Reference Range Interpretation Comments BUN (test code = BUN) 14 7-22 [facility]2017-10-04 15:09:00 Test Item Value Reference Range Interpretation Comments Chloride Lvl (test code = Chloride Lvl) 93 95-109 [facility]2017-10-04 15:09:00 Test Item Value Reference Range Interpretation Comments Potassium Lvl (test code = Potassium 3.8 3.5-5.1 Lvl) [facility]2017-10-04 15:09:00 Test Item Value Reference Range Interpretation Comments Glucose Lvl (test code = Glucose Lvl) 145 70-99 [facility] HospitalGlcjlepWUUAJLNYEQ9027-51-47 15:09:00 Test Item Value Reference Range Interpretation Comments Spherocyte (test code = Moderate Spherocyte) *ABN*(06/04/17 10:09 AM) [facility] HospitalZwwijvaYYCVQAXKYU5748-63-69 15:09:00 Test Item Value Reference Range Interpretation Comments RBC Morph (test code = Normal (06/04/17 10:09 RBC Morph) AM) [facility] HospitalObvugbzRAQHBCYSAV0425-41-92 15:09:00 Test Item Value Reference Range Interpretation Comments Large Plt (test code Moderate *ABN*(06/04/17 = Large Plt) 10:09 AM) [facility] HospitalHwwnwohOLQOJDWCBC0589-47-72 15:09:00 Test Item Value Reference Range Interpretation Comments Toxic Gran (test code Moderate *ABN*(06/04/17 = Toxic Gran) 10:09 AM) [facility] HospitalVioxwizKZANOVDMKC2162-16-44 15:09:00 Test Item Value Reference Range Interpretation Comments Lymphocytes (test code = Lymphocytes) 8.0 20.0-40.0 [facility] HospitalPmzjkwyTYLZYTDHRW1981-24-85 15:09:00 Test Item Value Reference Range Interpretation Comments Bands (test code = 4.0 See_Comment [Automat ed message] The Bands) system which ge nerated this result transmit stuart reference range : <=11.0. The reference r jose alfredo was not used to interpr et this result as cherry l/abnormal. [facility] HospitalSnyhsppKUTATGNVAF9629-35-76 15:09:00 Test Item Value Reference Range Interpretation Comments Atypical Lymphs (test code = Atypical 0.0 Lymphs) [facility] HospitalXbgropkOKRRNLTJPU8926-32-21 15:09:00 Test Item Value Reference Range Interpretation Comments Eosinophils (test code = 1.0 See_Comment [A utomated message] The Eosinophils) system which ge nerated this result tra nsmitted reference range : <=4.0. The reference r jose alfredo was not used to int erpret this result as normal/abnormal . [facility] HospitalEzmfvcoNNBKXPZINK2535-98-46 15:09:00 Test Item Value Reference Range Interpretation Comments Monocytes (test code = Monocytes) 7.0 2.0-12.0 [facility] HospitalZgaojyfYMBBCOAGII5938-34-97 15:09:00 Test Item Value Reference Range Interpretation Comments Segs (test code = Segs) 80.0 45.0-75.0 [facility] HospitalZzytmyiLNDYIWWCCE1414-83-74 15:09:00 Test Item Value Reference Range Interpretation Comments Eosinophils # (test code 0.1 See_Comment [A utomated message] The = Eosinophils #) system whic h generated this result tra nsmitted reference range : <=0.5. The reference r jose alfredo was not used to int erpret this result as normal/abnormal . [facility] HospitalYjreiooEHTPKLTHDJ8807-99-32 15:09:00 Test Item Value Reference Range Interpretation Comments Segs-Bands # (test code = Segs-Bands #) 11.8 1.5-8.1 [facility] HospitalIamlkomUIHZLRMSVN5751-93-49 15:09:00 Test Item Value Reference Range Interpretation Comments Monocytes # (test code 1.0 See_Comment [Aut omated message] The = Monocytes #) system which generated this result tra nsmitted reference range : <=0.8. The reference r jose alfredo was not used to int erpret this result as normal/abnormal . [facility] HospitalUphmqkkRIHEACXCMZ3648-71-16 15:09:00 Test Item Value Reference Range Interpretation Comments Lymphocytes # (test code = Lymphocytes 1.1 1.0-5.5 #) [facility] HospitalCfrszswMUYQBGOCNC9622-50-85 15:09:00 Test Item Value Reference Range Interpretation Comments MCH (test code = MCH) 29.7 pg 27.0-31.0 [facility] HospitalRmmbnwxXGIYEUIARH6978-92-33 15:09:00 Test Item Value Reference Range Interpretation Comments Hct (test code = Hct) 32.8 42.0-54.0 [facility] HospitalNnrcefpVDPQOIZULS8796-85-62 15:09:00 Test Item Value Reference Range Interpretation Comments Hgb (test code = Hgb) 11.0 14.0-18.0 [facility] HospitalJeaxgquUTOFNLDBWI9705-61-26 15:09:00 Test Item Value Reference Range Interpretation Comments RBC (test code = RBC) 3.68 4.70-6.10 [facility] HospitalEwlmlxaHOOTAFSGZF0712-54-52 15:09:00 Test Item Value Reference Range Interpretation Comments MCV (test code = MCV) 89.0 80.0-94.0 [facility] HospitalQcycydtWLPBZTGIEM1737-18-69 15:09:00 Test Item Value Reference Range Interpretation Comments WBC (test code = WBC) 14.0 3.7-10.4 [facility] HospitalUodtvagVPRNSTUBEU7578-74-22 15:09:00 Test Item Value Reference Range Interpretation Comments RDW (test code = RDW) 14.4 11.5-14.5 [facility] HospitalJzrbtjxZTMRTUIBUK3026-06-00 15:09:00 Test Item Value Reference Range Interpretation Comments Platelet (test code = Platelet) 336 133-450 [facility] HospitalKkgmsnwXQTFYTYDUP2726-83-05 15:09:00 Test Item Value Reference Range Interpretation Comments MPV (test code = MPV) 8.5 7.4-10.4 [facility] HospitalKlzkarhNPJBNXBDMX3478-19-77 15:09:00 Test Item Value Reference Range Interpretation Comments MCHC (test code = MCHC) 33.4 32.0-36.0 [facility] HospitalMabddqjGVVULCKCCV2857-75-32 20:40:00 Test Item Value Reference Range Interpretation Comments Basophils (test code = 0.4 See_Comment [Aut omated message] The Basophils) system which ge nerated this result tra nsmitted reference range : <=1.0. The reference r jose alfredo was not used to int erpret this result as normal/abnormal . [facility] HospitalJgvboicVQCNSVGWEO1600-16-48 20:40:00 Test Item Value Reference Range Interpretation Comments RBC Morph (test code = Normal (06/03/17 3:40 RBC Morph) PM) [facility] HospitalRjqzinmZJMCXBHCBF2983-99-87 20:40:00 Test Item Value Reference Range Interpretation Comments Plt Morph (test code = Normal (06/03/17 3:40 Plt Morph) PM) [facility] HospitalJalmldlSVMHOILPEB8614-11-90 20:40:00 Test Item Value Reference Range Interpretation Comments Basophils # (test code 0.1 See_Comment [Aut omated message] The = Basophils #) system which generated this result tra nsmitted reference range : <=0.2. The reference r jose alfredo was not used to int erpret this result as normal/abnormal . [facility] HospitalOrtvjruMHRHYEQZLT1124-09-42 20:40:00 Test Item Value Reference Range Interpretation Comments Basophils (test code = 0.4 See_Comment [Aut omated message] The Basophils) system which ge nerated this result tra nsmitted reference range : <=1.0. The reference r jose alfredo was not used to int erpret this result as normal/abnormal . [facility] HospitalBfrkdogEZXGLAMMED6985-40-23 20:40:00 Test Item Value Reference Range Interpretation Comments RBC Morph (test code = Normal (06/03/17 3:40 RBC Morph) PM) [facility] HospitalXcizzuqMBTBJDQMLJ2262-28-56 20:40:00 Test Item Value Reference Range Interpretation Comments Plt Morph (test code = Normal (06/03/17 3:40 Plt Morph) PM) [facility] HospitalYbnzxmxFSXSCNSLKG8975-05-24 20:40:00 Test Item Value Reference Range Interpretation Comments Basophils # (test code 0.1 See_Comment [Aut omated message] The = Basophils #) system which generated this result tra nsmitted reference range : <=0.2. The reference r jose alfredo was not used to int erpret this result as normal/abnormal . [facility] HospitalFyvjugsCSHZYPJETQ0643-54-61 20:40:00 Test Item Value Reference Range Interpretation Comments Basophils (test code = 0.4 See_Comment [Aut omated message] The Basophils) system which ge nerated this result tra nsmitted reference range : <=1.0. The reference r jose alfredo was not used to int erpret this result as normal/abnormal . [facility] HospitalTbaefefZRCUVOYHUG0990-31-34 20:40:00 Test Item Value Reference Range Interpretation Comments RBC Morph (test code = Normal (06/03/17 3:40 RBC Morph) PM) [facility] HospitalOrmgcwdQWHLYBLDSC6247-74-65 20:40:00 Test Item Value Reference Range Interpretation Comments Plt Morph (test code = Normal (06/03/17 3:40 Plt Morph) PM) [facility] HospitalTdsrzxaDSCSSDCNEZ5608-24-43 20:40:00 Test Item Value Reference Range Interpretation Comments Basophils # (test code 0.1 See_Comment [Aut omated message] The = Basophils #) system which generated this result tra nsmitted reference range : <=0.2. The reference r jose alfredo was not used to int erpret this result as normal/abnormal . [facility] HospitalYdmbdwqZGIEBYYPOA7285-64-00 09:41:00 Test Item Value Reference Range Interpretation Comments Metamyelocytes (test code 2.0 See_Comment [ Automated message] = Metamyelocytes) The system which generated this result transmitted ref erence range: <=1.0. T he reference range was not used to int erpret this result as normal/abnormal . [facility] HospitalJhybnqlYUQJNDYZJS8483-83-85 09:41:00 Test Item Value Reference Range Interpretation Comments Atypical Lymphs (test code = Atypical 0.0 Lymphs) [facility] HospitalKdydwxwVZIGLIJJYQ6853-45-14 09:41:00 Test Item Value Reference Range Interpretation Comments Bands (test code = 10.0 See_Comment [Automat ed message] The Bands) system which ge nerated this result transmit stuart reference range : <=11.0. The reference r jose alfredo was not used to interpr et this result as cherry l/abnormal. [facility] HospitalAuqzdqmGNZQECQUGZ9287-81-49 09:41:00 Test Item Value Reference Range Interpretation Comments Plt Morph (test code = Normal (05/31/17 4:41 Plt Morph) AM) [facility] HospitalZbsdzqnIQGJGROXRL9600-95-09 09:41:00 Test Item Value Reference Range Interpretation Comments RBC Morph (test code = Normal (05/31/17 4:41 RBC Morph) AM) [facility] HospitalVujwvoiXSIGHUPPGD6295-20-59 09:41:00 Test Item Value Reference Range Interpretation Comments Toxic Gran (test code Moderate *ABN*(05/31/17 = Toxic Gran) 4:41 AM) [facility] HospitalMlpgawnKDIGBNKKES7701-11-00 09:41:00 Test Item Value Reference Range Interpretation Comments Tot Cell Ct (test code = Tot Cell Ct) 100 1 [facility] HospitalGpuniksCFGBXQJQAE8215-88-97 09:41:00 Test Item Value Reference Range Interpretation Comments Metamyelocytes (test code 2.0 See_Comment [ Automated message] = Metamyelocytes) The system which generated this result transmitted ref erence range: <=1.0. T he reference range was not used to int erpret this result as normal/abnormal . [facility] HospitalAalwwrzAVVGAUKEWJ9124-34-15 09:41:00 Test Item Value Reference Range Interpretation Comments Atypical Lymphs (test code = Atypical 0.0 Lymphs) [facility] HospitalCmpwvwqLQTPDVJTQX0861-17-01 09:41:00 Test Item Value Reference Range Interpretation Comments Bands (test code = 10.0 See_Comment [Automat ed message] The Bands) system which ge nerated this result transmit stuart reference range : <=11.0. The reference r jose alfredo was not used to interpr et this result as cherry l/abnormal. [facility] HospitalZhyeugyWYLQKGPXAJ5235-15-51 09:41:00 Test Item Value Reference Range Interpretation Comments Plt Morph (test code = Normal (05/31/17 4:41 Plt Morph) AM) [facility] HospitalGdatiqgGKJVCIGBFB7578-11-76 09:41:00 Test Item Value Reference Range Interpretation Comments RBC Morph (test code = Normal (05/31/17 4:41 RBC Morph) AM) [facility] HospitalZzpybmnMEDLBYRPYW7406-26-63 09:41:00 Test Item Value Reference Range Interpretation Comments Toxic Gran (test code Moderate *ABN*(05/31/17 = Toxic Gran) 4:41 AM) [facility] HospitalLmeeomlSWZSJGIKKR3826-36-63 09:41:00 Test Item Value Reference Range Interpretation Comments Tot Cell Ct (test code = Tot Cell Ct) 100 1 [facility] HospitalPnhzynkDTILPPFRPU1684-89-95 09:41:00 Test Item Value Reference Range Interpretation Comments Metamyelocytes (test code 2.0 See_Comment [ Automated message] = Metamyelocytes) The system which generated this result transmitted ref erence range: <=1.0. T he reference range was not used to int erpret this result as normal/abnormal . [facility] HospitalUemrxtgOGYKHPUHPR5948-32-50 09:41:00 Test Item Value Reference Range Interpretation Comments Atypical Lymphs (test code = Atypical 0.0 Lymphs) [facility] HospitalCoakkztLQTQYALUJG8784-84-79 09:41:00 Test Item Value Reference Range Interpretation Comments Bands (test code = 10.0 See_Comment [Automat ed message] The Bands) system which ge nerated this result transmit stuart reference range : <=11.0. The reference r jose alfredo was not used to interpr et this result as cherry l/abnormal. [facility] HospitalHxpdqrfLCZQALFBCN0792-20-06 09:41:00 Test Item Value Reference Range Interpretation Comments Plt Morph (test code = Normal (05/31/17 4:41 Plt Morph) AM) [facility] HospitalWunysjeNZZFGJQXRT9310-64-11 09:41:00 Test Item Value Reference Range Interpretation Comments RBC Morph (test code = Normal (05/31/17 4:41 RBC Morph) AM) [facility] HospitalCgertpxFTOJNJBEIE2207-76-81 09:41:00 Test Item Value Reference Range Interpretation Comments Toxic Gran (test code Moderate *ABN*(05/31/17 = Toxic Gran) 4:41 AM) [facility] HospitalBoiyzkwLUDAHCGPTZ2549-68-48 09:41:00 Test Item Value Reference Range Interpretation Comments Tot Cell Ct (test code = Tot Cell Ct) 100 1 [facility]2017-09-28 09:27:00 Test Item Value Reference Range Interpretation Comments B/C Ratio (test code = B/C Ratio) 38 6-25 [facility]2017-09-28 09:27:00 Test Item Value Reference Range Interpretation Comments A/G Ratio (test code = A/G Ratio) 0.4 0.7-1.6 [facility]2017-09-28 09:27:00 Test Item Value Reference Range Interpretation Comments Globulin (test code = Globulin) 3.5 2.7-4.2 [facility]2017-09-28 09:27:00 Test Item Value Reference Range Interpretation Comments ALT (test code = ALT) 16 See_Comment [Auto mated message] The system which ge nerated this result transmit stuart reference range : <=65. The reference range was not used to interpr et this result as cherry l/abnormal. [facility]2017-09-28 09:27:00 Test Item Value Reference Range Interpretation Comments Total Protein (test code = Total 5.0 6.4-8.4 Protein) [facility]2017-09-28 09:27:00 Test Item Value Reference Range Interpretation Comments Albumin Lvl (test code = Albumin Lvl) 1.5 3.5-5.0 [facility]2017-09-28 09:27:00 Test Item Value Reference Range Interpretation Comments AST (test code = AST) 18 See_Comment [Auto mated message] The system which ge nerated this result transmit stuart reference range : <=37. The reference range was not used to interpr et this result as cherry l/abnormal. [facility]2017-09-28 09:27:00 Test Item Value Reference Range Interpretation Comments Bili Total (test code = Bili Total) 0.4 0.2-1.3 [facility]2017-09-28 09:27:00 Test Item Value Reference Range Interpretation Comments Alk Phos (test code = Alk Phos) 39 39-136 [facility]2017-09-28 09:27:00 Test Item Value Reference Range Interpretation Comments B/C Ratio (test code = B/C Ratio) 38 6-25 [facility]2017-09-28 09:27:00 Test Item Value Reference Range Interpretation Comments A/G Ratio (test code = A/G Ratio) 0.4 0.7-1.6 [facility]2017-09-28 09:27:00 Test Item Value Reference Range Interpretation Comments Globulin (test code = Globulin) 3.5 2.7-4.2 [facility]2017-09-28 09:27:00 Test Item Value Reference Range Interpretation Comments ALT (test code = ALT) 16 See_Comment [Auto mated message] The system which ge nerated this result transmit stuart reference range : <=65. The reference range was not used to interpr et this result as cherry l/abnormal. [facility]2017-09-28 09:27:00 Test Item Value Reference Range Interpretation Comments Total Protein (test code = Total 5.0 6.4-8.4 Protein) [facility]2017-09-28 09:27:00 Test Item Value Reference Range Interpretation Comments Albumin Lvl (test code = Albumin Lvl) 1.5 3.5-5.0 [facility]2017-09-28 09:27:00 Test Item Value Reference Range Interpretation Comments AST (test code = AST) 18 See_Comment [Auto mated message] The system which ge nerated this result transmit stuart reference range : <=37. The reference range was not used to interpr et this result as cherry l/abnormal. [facility]2017-09-28 09:27:00 Test Item Value Reference Range Interpretation Comments Bili Total (test code = Bili Total) 0.4 0.2-1.3 [facility]2017-09-28 09:27:00 Test Item Value Reference Range Interpretation Comments Alk Phos (test code = Alk Phos) 39 39-136 [facility]2017-09-28 09:27:00 Test Item Value Reference Range Interpretation Comments B/C Ratio (test code = B/C Ratio) 38 6-25 [facility]2017-09-28 09:27:00 Test Item Value Reference Range Interpretation Comments A/G Ratio (test code = A/G Ratio) 0.4 0.7-1.6 [facility]2017-09-28 09:27:00 Test Item Value Reference Range Interpretation Comments Globulin (test code = Globulin) 3.5 2.7-4.2 [facility]2017-09-28 09:27:00 Test Item Value Reference Range Interpretation Comments ALT (test code = ALT) 16 See_Comment [Auto mated message] The system which ge nerated this result transmit stuart reference range : <=65. The reference range was not used to interpr et this result as cherry l/abnormal. [facility]2017-09-28 09:27:00 Test Item Value Reference Range Interpretation Comments Total Protein (test code = Total 5.0 6.4-8.4 Protein) [facility]2017-09-28 09:27:00 Test Item Value Reference Range Interpretation Comments Albumin Lvl (test code = Albumin Lvl) 1.5 3.5-5.0 [facility]2017-09-28 09:27:00 Test Item Value Reference Range Interpretation Comments AST (test code = AST) 18 See_Comment [Auto mated message] The system which ge nerated this result transmit stuart reference range : <=37. The reference range was not used to interpr et this result as cherry l/abnormal. [facility]2017-09-28 09:27:00 Test Item Value Reference Range Interpretation Comments Bili Total (test code = Bili Total) 0.4 0.2-1.3 [facility]2017-09-28 09:27:00 Test Item Value Reference Range Interpretation Comments Alk Phos (test code = Alk Phos) 39 39-136 [id number] 07:37:00 Test Item Value Reference Range Interpretation Comments Plt Morph (test code = Normal (05/28/17 2:37 Plt Morph) AM) [id number] 07:37:00 Test Item Value Reference Range Interpretation Comments Plt Morph (test code = Normal (05/28/17 2:37 Plt Morph) AM) [facility] [id number] 07:37:00 Test Item Value Reference Range Interpretation Comments Plt Morph (test code = Normal (05/28/17 2:37 Plt Morph) AM) [facility] AND [id number] 02:42:00 Test Item Value Reference Range Interpretation Comments UA Mucus (test code = UA Mucus) Few /LPF [facility] AND [id number] 02:42:00 Test Item Value Reference Range Interpretation Comments UA Bacteria (test code = UA Occasional /HPF Bacteria) [facility] AND [id number] 02:42:00 Test Item Value Reference Range Interpretation Comments UA Amorph Sydni (test code = UA Moderate /HPF Amorph Sydni) [facility] AND [id number] 02:42:00 Test Item Value Reference Range Interpretation Comments UA Sq Epi (test code = UA Sq Occasional /LPF Epi) [facility] AND [id number] 02:42:00 Test Item Value Reference Range Interpretation Comments UA RBC (test code = 6-10 /HPF See_Comment [Automa stuart message] The UA RBC) system which ge nerated this result tra nsmitted reference range : <=2. The reference range was not used to interpr et this result as normal/abnormal . [facility] AND [id number] 02:42:00 Test Item Value Reference Range Interpretation Comments UA WBC (test code = 0-2 /HPF See_Comment [Automa stuart message] The UA WBC) system which ge nerated this result tra nsmitted reference range : <=5. The reference range was not used to interpr et this result as cherry l/abnormal. [facility] AND [id number] 02:42:00 Test Item Value Reference Range Interpretation Comments UA Leuk Est (test Negative (05/24/17 9:42 code = UA Leuk Est) PM) [facility] AND [id number] 02:42:00 Test Item Value Reference Range Interpretation Comments Micro? (test code = Performed (05/24/17 9:42 Micro?) PM) [facility] AND [id number] 02:42:00 Test Item Value Reference Range Interpretation Comments UA Urobilinogen (test code = UA 1.0 0.1-1.0 Urobilinogen) [facility] AND [id number] 02:42:00 Test Item Value Reference Range Interpretation Comments UA Nitrite (test code Negative (05/24/17 9:42 = UA Nitrite) PM) [facility] AND [id number] 02:42:00 Test Item Value Reference Range Interpretation Comments UA Protein (test code = UA Protein) 30 mg/dL [facility] AND [id number] 02:42:00 Test Item Value Reference Range Interpretation Comments UA Bili (test code = Small *ABN*(05/24/17 UA Bili) 9:42 PM) [facility] AND [id number] 02:42:00 Test Item Value Reference Range Interpretation Comments UA Blood (test code = Moderate *ABN*(05/24/17 UA Blood) 9:42 PM) [facility] AND [id number] 02:42:00 Test Item Value Reference Range Interpretation Comments UA Glucose (test code Negative (05/24/17 9:42 = UA Glucose) PM) [facility] AND [id number] 02:42:00 Test Item Value Reference Range Interpretation Comments UA Ketones (test code = Trace *ABN*(05/24/17 UA Ketones) 9:42 PM) [facility] AND [id number] 02:42:00 Test Item Value Reference Range Interpretation Comments UA Spec Grav (test >=1.030 *ABN*(05/24/17 code = UA Spec Grav) 9:42 PM) [facility] AND [id number] 02:42:00 Test Item Value Reference Range Interpretation Comments UA pH (test code = UA pH) 5.0 1 5.0-8.0 [facility] AND [id number] 02:42:00 Test Item Value Reference Range Interpretation Comments UA Color (test code = Yellow *NA*(05/24/17 UA Color) 9:42 PM) [facility] AND [id number] 02:42:00 Test Item Value Reference Range Interpretation Comments UA Turbidity (test code Cloudy *ABN*(05/24/17 = UA Turbidity) 9:42 PM) [facility] AND [id number] 02:42:00 Test Item Value Reference Range Interpretation Comments UA Mucus (test code = UA Mucus) Few /LPF [facility] AND [id number] 02:42:00 Test Item Value Reference Range Interpretation Comments UA Bacteria (test code = UA Occasional /HPF Bacteria) [facility] AND [id number] 02:42:00 Test Item Value Reference Range Interpretation Comments UA Amorph Sydni (test code = UA Moderate /HPF Amorph Sydni) [facility] AND [id number] 02:42:00 Test Item Value Reference Range Interpretation Comments UA Sq Epi (test code = UA Sq Occasional /LPF Epi) [facility] AND [id number] 02:42:00 Test Item Value Reference Range Interpretation Comments UA RBC (test code = 6-10 /HPF See_Comment [Automa stuart message] The UA RBC) system which ge nerated this result tra nsmitted reference range : <=2. The reference range was not used to interpr et this result as normal/abnormal . [facility] AND [id number] 02:42:00 Test Item Value Reference Range Interpretation Comments UA WBC (test code = 0-2 /HPF See_Comment [Automa stuart message] The UA WBC) system which ge nerated this result tra nsmitted reference range : <=5. The reference range was not used to interpr et this result as cherry l/abnormal. [facility] AND [id number] 02:42:00 Test Item Value Reference Range Interpretation Comments UA Leuk Est (test Negative (05/24/17 9:42 code = UA Leuk Est) PM) [facility] AND [id number] 02:42:00 Test Item Value Reference Range Interpretation Comments Micro? (test code = Performed (05/24/17 9:42 Micro?) PM) [facility] AND [id number] 02:42:00 Test Item Value Reference Range Interpretation Comments UA Urobilinogen (test code = UA 1.0 0.1-1.0 Urobilinogen) [facility] AND [id number] 02:42:00 Test Item Value Reference Range Interpretation Comments UA Nitrite (test code Negative (05/24/17 9:42 = UA Nitrite) PM) [facility] AND [id number] 02:42:00 Test Item Value Reference Range Interpretation Comments UA Protein (test code = UA Protein) 30 mg/dL [facility] AND [id number] 02:42:00 Test Item Value Reference Range Interpretation Comments UA Bili (test code = Small *ABN*(05/24/17 UA Bili) 9:42 PM) [facility] AND [id number] 02:42:00 Test Item Value Reference Range Interpretation Comments UA Blood (test code = Moderate *ABN*(05/24/17 UA Blood) 9:42 PM) [facility] AND [id number] 02:42:00 Test Item Value Reference Range Interpretation Comments UA Glucose (test code Negative (05/24/17 9:42 = UA Glucose) PM) [facility] AND [id number] 02:42:00 Test Item Value Reference Range Interpretation Comments UA Ketones (test code = Trace *ABN*(05/24/17 UA Ketones) 9:42 PM) [facility] AND [id number] 02:42:00 Test Item Value Reference Range Interpretation Comments UA Spec Grav (test >=1.030 *ABN*(05/24/17 code = UA Spec Grav) 9:42 PM) [facility] AND [id number] 02:42:00 Test Item Value Reference Range Interpretation Comments UA pH (test code = UA pH) 5.0 1 5.0-8.0 [facility] AND [id number] 02:42:00 Test Item Value Reference Range Interpretation Comments UA Color (test code = Yellow *NA*(05/24/17 UA Color) 9:42 PM) [facility] AND [id number] 02:42:00 Test Item Value Reference Range Interpretation Comments UA Turbidity (test code Cloudy *ABN*(05/24/17 = UA Turbidity) 9:42 PM) [facility] AND [id number] 02:42:00 Test Item Value Reference Range Interpretation Comments UA Mucus (test code = UA Mucus) Few /LPF [facility] AND [id number] 02:42:00 Test Item Value Reference Range Interpretation Comments UA Bacteria (test code = UA Occasional /HPF Bacteria) [facility] AND [id number] 02:42:00 Test Item Value Reference Range Interpretation Comments UA Amorph Sydni (test code = UA Moderate /HPF Amorph Sydni) [facility] AND [id number] 02:42:00 Test Item Value Reference Range Interpretation Comments UA Sq Epi (test code = UA Sq Occasional /LPF Epi) [facility] AND [id number] 02:42:00 Test Item Value Reference Range Interpretation Comments UA RBC (test code = 6-10 /HPF See_Comment [Automa stuart message] The UA RBC) system which ge nerated this result tra nsmitted reference range : <=2. The reference range was not used to interpr et this result as normal/abnormal . [facility] AND [id number] 02:42:00 Test Item Value Reference Range Interpretation Comments UA WBC (test code = 0-2 /HPF See_Comment [Automa stuart message] The UA WBC) system which ge nerated this result tra nsmitted reference range : <=5. The reference range was not used to interpr et this result as cherry l/abnormal. [facility] AND [id number] 02:42:00 Test Item Value Reference Range Interpretation Comments UA Leuk Est (test Negative (05/24/17 9:42 code = UA Leuk Est) PM) [facility] AND [id number] 02:42:00 Test Item Value Reference Range Interpretation Comments Micro? (test code = Performed (05/24/17 9:42 Micro?) PM) [facility] AND [id number] 02:42:00 Test Item Value Reference Range Interpretation Comments UA Urobilinogen (test code = UA 1.0 0.1-1.0 Urobilinogen) [facility] AND [id number] 02:42:00 Test Item Value Reference Range Interpretation Comments UA Nitrite (test code Negative (05/24/17 9:42 = UA Nitrite) PM) [facility] AND [id number] 02:42:00 Test Item Value Reference Range Interpretation Comments UA Protein (test code = UA Protein) 30 mg/dL [facility] AND [id number] 02:42:00 Test Item Value Reference Range Interpretation Comments UA Bili (test code = Small *ABN*(05/24/17 UA Bili) 9:42 PM) [facility] AND [id number] 02:42:00 Test Item Value Reference Range Interpretation Comments UA Blood (test code = Moderate *ABN*(05/24/17 UA Blood) 9:42 PM) [facility] AND [id number] 02:42:00 Test Item Value Reference Range Interpretation Comments UA Glucose (test code Negative (05/24/17 9:42 = UA Glucose) PM) [facility] AND [id number] 02:42:00 Test Item Value Reference Range Interpretation Comments UA Ketones (test code = Trace *ABN*(05/24/17 UA Ketones) 9:42 PM) [facility] AND [id number] 02:42:00 Test Item Value Reference Range Interpretation Comments UA Spec Grav (test >=1.030 *ABN*(05/24/17 code = UA Spec Grav) 9:42 PM) [facility] AND [id number] 02:42:00 Test Item Value Reference Range Interpretation Comments UA pH (test code = UA pH) 5.0 1 5.0-8.0 [facility] AND [id number] 02:42:00 Test Item Value Reference Range Interpretation Comments UA Color (test code = Yellow *NA*(05/24/17 UA Color) 9:42 PM) [facility] AND [id number] 02:42:00 Test Item Value Reference Range Interpretation Comments UA Turbidity (test code Cloudy *ABN*(05/24/17 = UA Turbidity) 9:42 PM) [facility]2017-09-23 15:55:00 Test Item Value Reference Range Interpretation Comments Procalcitonin Lvl (test 14.55 See_Comment [Au tomated message] code = Procalcitonin Lvl) Th e system which generated this result transmitted ref erence range: <=0.10. The reference range was not used to interpr et this result as normal/abnormal . [facility]2017-09-23 15:55:00 Test Item Value Reference Range Interpretation Comments Lactic Acid Lvl (test code = Lactic 1.2 0.5-2.2 Acid Lvl) [facility]2017-09-23 15:55:00 Test Item Value Reference Range Interpretation Comments Procalcitonin Lvl (test 14.55 See_Comment [Au tomated message] code = Procalcitonin Lvl) Th e system which generated this result transmitted ref erence range: <=0.10. The reference range was not used to interpr et this result as normal/abnormal . [facility]2017-09-23 15:55:00 Test Item Value Reference Range Interpretation Comments Lactic Acid Lvl (test code = Lactic 1.2 0.5-2.2 Acid Lvl) [facility]2017-09-23 15:55:00 Test Item Value Reference Range Interpretation Comments Procalcitonin Lvl (test 14.55 See_Comment [Au tomated message] code = Procalcitonin Lvl) Th e system which generated this result transmitted ref erence range: <=0.10. The reference range was not used to interpr et this result as normal/abnormal . [facility]2017-09-23 15:55:00 Test Item Value Reference Range Interpretation Comments Lactic Acid Lvl (test code = Lactic 1.2 0.5-2.2 Acid Lvl) [facility] AND [id number] 12:31:00 Test Item Value Reference Range Interpretation Comments UA Ketones (test code = UA Negative mg/dL Ketones) [facility] AND [id number] 12:31:00 Test Item Value Reference Range Interpretation Comments UA Bili (test code = Negative *NA*(05/23/17 UA Bili) 7:31 AM) [facility] AND [id number] 12:31:00 Test Item Value Reference Range Interpretation Comments UA Blood (test code = Negative (05/23/17 7:31 UA Blood) AM) [facility] AND [id number] 12:31:00 Test Item Value Reference Range Interpretation Comments UA Nitrite (test code Negative (05/23/17 7:31 = UA Nitrite) AM) [facility] AND [id number] 12:31:00 Test Item Value Reference Range Interpretation Comments UA Urobilinogen (test code = UA 2.0 0.1-1.0 Urobilinogen) [facility] AND [id number] 12:31:00 Test Item Value Reference Range Interpretation Comments UA Leuk Est (test Negative (05/23/17 7:31 code = UA Leuk Est) AM) [facility] AND [id number] 12:31:00 Test Item Value Reference Range Interpretation Comments UA WBC (test code = 1 See_Comment [Automa stuart message] The UA WBC) system which ge nerated this result transmit stuart reference range : <=5. The reference range was not used to interpr et this result as cherry l/abnormal. [facility] AND [id number] 12:31:00 Test Item Value Reference Range Interpretation Comments UA Sq Epi (test code = UA Sq Occasional /LPF Epi) [facility] AND [id number] 12:31:00 Test Item Value Reference Range Interpretation Comments UA Mucus (test code = UA Mucus) Few /LPF [facility] AND [id number] 12:31:00 Test Item Value Reference Range Interpretation Comments UA RBC (test code = 2 See_Comment [Automa stuart message] The UA RBC) system which ge nerated this result transmit stuart reference range : <=2. The reference range was not used to interpr et this result as cherry l/abnormal. [facility] AND [id number] 12:31:00 Test Item Value Reference Range Interpretation Comments UA Glucose (test code = UA Glucose) 150 mg/dL [facility] AND [id number] 12:31:00 Test Item Value Reference Range Interpretation Comments UA Protein (test code = UA Protein) 100 mg/dL [facility] AND [id number] 12:31:00 Test Item Value Reference Range Interpretation Comments UA Spec Grav (test code = UA Spec Grav) 1.020 [facility] AND [id number] 12:31:00 Test Item Value Reference Range Interpretation Comments UA pH (test code = UA pH) 5.0 5.0-8.0 [facility] AND [id number] 12:31:00 Test Item Value Reference Range Interpretation Comments UA Color (test code = Yellow *NA*(05/23/17 UA Color) 7:31 AM) [facility] AND [id number] 12:31:00 Test Item Value Reference Range Interpretation Comments UA Turbidity (test code = Clear (05/23/17 7:31 UA Turbidity) AM) [facility] AND [id number] 12:31:00 Test Item Value Reference Range Interpretation Comments UA Ketones (test code = UA Negative mg/dL Ketones) [facility] AND [id number] 12:31:00 Test Item Value Reference Range Interpretation Comments UA Bili (test code = Negative *NA*(05/23/17 UA Bili) 7:31 AM) [facility] AND [id number] 12:31:00 Test Item Value Reference Range Interpretation Comments UA Blood (test code = Negative (05/23/17 7:31 UA Blood) AM) [facility] AND [id number] 12:31:00 Test Item Value Reference Range Interpretation Comments UA Nitrite (test code Negative (05/23/17 7:31 = UA Nitrite) AM) [facility] AND [id number] 12:31:00 Test Item Value Reference Range Interpretation Comments UA Urobilinogen (test code = UA 2.0 0.1-1.0 Urobilinogen) [facility] AND [id number] 12:31:00 Test Item Value Reference Range Interpretation Comments UA Leuk Est (test Negative (05/23/17 7:31 code = UA Leuk Est) AM) [facility] [id number] 12:31:00 Test Item Value Reference Range Interpretation Comments UA WBC (test code = 1 See_Comment [Automa stuart message] The UA WBC) system which ge nerated this result transmit stuart reference range : <=5. The reference range was not used to interpr et this result as cherry l/abnormal. [facility] [id number] 12:31:00 Test Item Value Reference Range Interpretation Comments UA Sq Epi (test code = UA Sq Occasional /LPF Epi) [facility] AND [id number] 12:31:00 Test Item Value Reference Range Interpretation Comments UA Mucus (test code = UA Mucus) Few /LPF [facility] AND [id number] 12:31:00 Test Item Value Reference Range Interpretation Comments UA RBC (test code = 2 See_Comment [Automa stuart message] The UA RBC) system which ge nerated this result transmit stuart reference range : <=2. The reference range was not used to interpr et this result as cherry l/abnormal. [facility] [id number] 12:31:00 Test Item Value Reference Range Interpretation Comments UA Glucose (test code = UA Glucose) 150 mg/dL [facility] AND [id number] 12:31:00 Test Item Value Reference Range Interpretation Comments UA Protein (test code = UA Protein) 100 mg/dL [facility] AND [id number] 12:31:00 Test Item Value Reference Range Interpretation Comments UA Spec Grav (test code = UA Spec Grav) 1.020 [facility] AND [id number] 12:31:00 Test Item Value Reference Range Interpretation Comments UA pH (test code = UA pH) 5.0 5.0-8.0 [facility] [id number] 12:31:00 Test Item Value Reference Range Interpretation Comments UA Color (test code = Yellow *NA*(05/23/17 UA Color) 7:31 AM) [facility] AND [id number] 12:31:00 Test Item Value Reference Range Interpretation Comments UA Turbidity (test code = Clear (05/23/17 7:31 UA Turbidity) AM) [facility] AND [id number] 12:31:00 Test Item Value Reference Range Interpretation Comments UA Ketones (test code = UA Negative mg/dL Ketones) [facility] AND [id number] 12:31:00 Test Item Value Reference Range Interpretation Comments UA Bili (test code = Negative *NA*(05/23/17 UA Bili) 7:31 AM) [facility] AND [id number] 12:31:00 Test Item Value Reference Range Interpretation Comments UA Blood (test code = Negative (05/23/17 7:31 UA Blood) AM) [facility] AND [id number] 12:31:00 Test Item Value Reference Range Interpretation Comments UA Nitrite (test code Negative (05/23/17 7:31 = UA Nitrite) AM) [facility] AND [id number] 12:31:00 Test Item Value Reference Range Interpretation Comments UA Urobilinogen (test code = UA 2.0 0.1-1.0 Urobilinogen) [facility] AND [id number] 12:31:00 Test Item Value Reference Range Interpretation Comments UA Leuk Est (test Negative (05/23/17 7:31 code = UA Leuk Est) AM) [facility] AND [id number] 12:31:00 Test Item Value Reference Range Interpretation Comments UA WBC (test code = 1 See_Comment [Automa stuart message] The UA WBC) system which ge nerated this result transmit stuart reference range : <=5. The reference range was not used to interpr et this result as cherry l/abnormal. [facility] AND [id number] 12:31:00 Test Item Value Reference Range Interpretation Comments UA Sq Epi (test code = UA Sq Occasional /LPF Epi) [facility] AND [id number] 12:31:00 Test Item Value Reference Range Interpretation Comments UA Mucus (test code = UA Mucus) Few /LPF [facility] AND [id number] 12:31:00 Test Item Value Reference Range Interpretation Comments UA RBC (test code = 2 See_Comment [Automa stuart message] The UA RBC) system which ge nerated this result transmit stuart reference range : <=2. The reference range was not used to interpr et this result as cherry l/abnormal. [facility] AND [id number] 12:31:00 Test Item Value Reference Range Interpretation Comments UA Glucose (test code = UA Glucose) 150 mg/dL [facility] AND [id number] 12:31:00 Test Item Value Reference Range Interpretation Comments UA Protein (test code = UA Protein) 100 mg/dL [facility] AND [id number] 12:31:00 Test Item Value Reference Range Interpretation Comments UA Spec Grav (test code = UA Spec Grav) 1.020 [facility] AND [id number] 12:31:00 Test Item Value Reference Range Interpretation Comments UA pH (test code = UA pH) 5.0 5.0-8.0 [facility] AND [id number] 12:31:00 Test Item Value Reference Range Interpretation Comments UA Color (test code = Yellow *NA*(05/23/17 UA Color) 7:31 AM) [facility] AND [id number] 12:31:00 Test Item Value Reference Range Interpretation Comments UA Turbidity (test code = Clear (05/23/17 7:31 UA Turbidity) AM) [facility] AutomationCARDIAC [id number] 11:12:00 Test Item Value Reference Range Interpretation Comments BNP (test code = BNP) 76 [facility] DistrictSpace Monkey [id number] 11:12:00 Test Item Value Reference Range Interpretation Comments Magnesium Lvl (test code = Magnesium 1.6 1.8-2.4 Lvl) [facility] DistrictHarvest AutomationCHEM [id number] 11:12:00 Test Item Value Reference Range Interpretation Comments Lipase Lvl (test code = Lipase Lvl) 151 73-393 [facility] [id number] 11:12:00 Test Item Value Reference Range Interpretation Comments Hgb A1C (test code = Hgb A1C) 6.5 [facility] DistrictannCARDIAC [id number] 11:12:00 Test Item Value Reference Range Interpretation Comments BNP (test code = BNP) 76 [facility] DistrictSpace Monkey [id number] 11:12:00 Test Item Value Reference Range Interpretation Comments Magnesium Lvl (test code = Magnesium 1.6 1.8-2.4 Lvl) [facility] [id number] 11:12:00 Test Item Value Reference Range Interpretation Comments Lipase Lvl (test code = Lipase Lvl) 151 73-393 [facility] DistrictannSPECIAL [id number] 11:12:00 Test Item Value Reference Range Interpretation Comments Hgb A1C (test code = Hgb A1C) 6.5 [facility] [id number] 11:12:00 Test Item Value Reference Range Interpretation Comments BNP (test code = BNP) 76 [facility] [id number] 11:12:00 Test Item Value Reference Range Interpretation Comments Magnesium Lvl (test code = Magnesium 1.6 1.8-2.4 Lvl) [facility] [id number] 11:12:00 Test Item Value Reference Range Interpretation Comments Lipase Lvl (test code = Lipase Lvl) 151 73-393 [facility] [id number] 11:12:00 Test Item Value Reference Range Interpretation Comments Hgb A1C (test code = Hgb A1C) 6.5 [facility] [id number] 11:04:00 Test Item Value Reference Range Interpretation Comments UA Sq Epi (test code = UA Sq Occasional /LPF Epi) [facility] [id number] 11:04:00 Test Item Value Reference Range Interpretation Comments UA WBC (test code = UA None Seen (07/28/16 WBC) 5:04 AM) [facility] [id number] 11:04:00 Test Item Value Reference Range Interpretation Comments UA RBC (test None Seen See_Comment [Automated mes moises] code = UA RBC) (07/28/16 5:04 The system which AM) generated this result transmitted ref erence range: <=2. The reference range was not used to int erpret this result as normal/abnormal . [facility] [id number] 11:04:00 Test Item Value Reference Range Interpretation Comments UA Bacteria (test code = UA Occasional /HPF Bacteria) [facility] [id number] 11:04:00 Test Item Value Reference Range Interpretation Comments UA Nitrite (test code Negative (07/28/16 5:04 = UA Nitrite) AM) [facility] [id number] 11:04:00 Test Item Value Reference Range Interpretation Comments UA Leuk Est (test Negative (07/28/16 5:04 code = UA Leuk Est) AM) [facility] [id number] 11:04:00 Test Item Value Reference Range Interpretation Comments UA Turbidity (test code = Clear (07/28/16 5:04 UA Turbidity) AM) [facility] [id number] 11:04:00 Test Item Value Reference Range Interpretation Comments UA Color (test code = UA Color) STRAW [facility] [id number] 11:04:00 Test Item Value Reference Range Interpretation Comments UA Ketones (test code Negative *NA*(07/28/16 = UA Ketones) 5:04 AM) [facility] [id number] 11:04:00 Test Item Value Reference Range Interpretation Comments UA Bili (test code = Negative *NA*(07/28/16 UA Bili) 5:04 AM) [facility] [id number] 11:04:00 Test Item Value Reference Range Interpretation Comments UA Spec Grav (test code = UA Spec 1.010 1 Grav) [facility] [id number] 11:04:00 Test Item Value Reference Range Interpretation Comments UA Urobilinogen (test code = UA 0.2 0.1-1.0 Urobilinogen) [facility] [id number] 11:04:00 Test Item Value Reference Range Interpretation Comments UA Blood (test code = Negative (07/28/16 5:04 UA Blood) AM) [facility] [id number] 11:04:00 Test Item Value Reference Range Interpretation Comments UA pH (test code = UA pH) 7.0 1 5.0-8.0 [facility] [id number] 11:04:00 Test Item Value Reference Range Interpretation Comments UA Glucose (test code = UA Glucose) 100 mg/dL [facility] [id number] 11:04:00 Test Item Value Reference Range Interpretation Comments UA Protein (test code Negative (07/28/16 5:04 = UA Protein) AM) [facility] [id number] 11:04:00 Test Item Value Reference Range Interpretation Comments UA Sq Epi (test code = UA Sq Occasional /LPF Epi) [facility] [id number] 11:04:00 Test Item Value Reference Range Interpretation Comments UA WBC (test code = UA None Seen (07/28/16 WBC) 5:04 AM) [facility] [id number] 11:04:00 Test Item Value Reference Range Interpretation Comments UA RBC (test None Seen See_Comment [Automated mes moises] code = UA RBC) (07/28/16 5:04 The system which AM) generated this result transmitted ref erence range: <=2. The reference range was not used to int erpret this result as normal/abnormal . [facility] [id number] 11:04:00 Test Item Value Reference Range Interpretation Comments UA Bacteria (test code = UA Occasional /HPF Bacteria) [facility] [id number] 11:04:00 Test Item Value Reference Range Interpretation Comments UA Nitrite (test code Negative (07/28/16 5:04 = UA Nitrite) AM) [facility] [id number] 11:04:00 Test Item Value Reference Range Interpretation Comments UA Leuk Est (test Negative (07/28/16 5:04 code = UA Leuk Est) AM) [facility] [id number] 11:04:00 Test Item Value Reference Range Interpretation Comments UA Turbidity (test code = Clear (07/28/16 5:04 UA Turbidity) AM) [facility] [id number] 11:04:00 Test Item Value Reference Range Interpretation Comments UA Color (test code = UA Color) STRAW [facility] AND [id number] 11:04:00 Test Item Value Reference Range Interpretation Comments UA Ketones (test code Negative *NA*(07/28/16 = UA Ketones) 5:04 AM) [facility] [id number] 11:04:00 Test Item Value Reference Range Interpretation Comments UA Bili (test code = Negative *NA*(07/28/16 UA Bili) 5:04 AM) [facility] [id number] 11:04:00 Test Item Value Reference Range Interpretation Comments UA Spec Grav (test code = UA Spec 1.010 1 Grav) [facility] AND [id number] 11:04:00 Test Item Value Reference Range Interpretation Comments UA Urobilinogen (test code = UA 0.2 0.1-1.0 Urobilinogen) [facility] AND [id number] 11:04:00 Test Item Value Reference Range Interpretation Comments UA Blood (test code = Negative (07/28/16 5:04 UA Blood) AM) [facility] AND [id number] 11:04:00 Test Item Value Reference Range Interpretation Comments UA pH (test code = UA pH) 7.0 1 5.0-8.0 [facility] AND [id number] 11:04:00 Test Item Value Reference Range Interpretation Comments UA Glucose (test code = UA Glucose) 100 mg/dL [facility] AND [id number] 11:04:00 Test Item Value Reference Range Interpretation Comments UA Protein (test code Negative (07/28/16 5:04 = UA Protein) AM) [facility] AND [id number] 11:04:00 Test Item Value Reference Range Interpretation Comments UA Sq Epi (test code = UA Sq Occasional /LPF Epi) [facility] AND [id number] 11:04:00 Test Item Value Reference Range Interpretation Comments UA WBC (test code = UA None Seen (07/28/16 WBC) 5:04 AM) [facility] AND [id number] 11:04:00 Test Item Value Reference Range Interpretation Comments UA RBC (test None Seen See_Comment [Automated mes moises] code = UA RBC) (07/28/16 5:04 The system which AM) generated this result transmitted ref erence range: <=2. The reference range was not used to int erpret this result as normal/abnormal . [facility] AND [id number] 11:04:00 Test Item Value Reference Range Interpretation Comments UA Bacteria (test code = UA Occasional /HPF Bacteria) [facility] AND [id number] 11:04:00 Test Item Value Reference Range Interpretation Comments UA Nitrite (test code Negative (07/28/16 5:04 = UA Nitrite) AM) [facility] AND [id number] 11:04:00 Test Item Value Reference Range Interpretation Comments UA Leuk Est (test Negative (07/28/16 5:04 code = UA Leuk Est) AM) [facility] [id number] 11:04:00 Test Item Value Reference Range Interpretation Comments UA Turbidity (test code = Clear (07/28/16 5:04 UA Turbidity) AM) [facility] [id number] 11:04:00 Test Item Value Reference Range Interpretation Comments UA Color (test code = UA Color) STRAW [facility] [id number] 11:04:00 Test Item Value Reference Range Interpretation Comments UA Ketones (test code Negative *NA*(07/28/16 = UA Ketones) 5:04 AM) [facility] [id number] 11:04:00 Test Item Value Reference Range Interpretation Comments UA Bili (test code = Negative *NA*(07/28/16 UA Bili) 5:04 AM) [facility] [id number] 11:04:00 Test Item Value Reference Range Interpretation Comments UA Spec Grav (test code = UA Spec 1.010 1 Grav) [facility] [id number] 11:04:00 Test Item Value Reference Range Interpretation Comments UA Urobilinogen (test code = UA 0.2 0.1-1.0 Urobilinogen) [facility] [id number] 11:04:00 Test Item Value Reference Range Interpretation Comments UA Blood (test code = Negative (07/28/16 5:04 UA Blood) AM) [facility] [id number] 11:04:00 Test Item Value Reference Range Interpretation Comments UA pH (test code = UA pH) 7.0 1 5.0-8.0 [facility] [id number] 11:04:00 Test Item Value Reference Range Interpretation Comments UA Glucose (test code = UA Glucose) 100 mg/dL [facility] [id number] 11:04:00 Test Item Value Reference Range Interpretation Comments UA Protein (test code Negative (07/28/16 5:04 = UA Protein) AM) [id number] 11:00:50 Test Item Value Reference Range Interpretation Comments CHD Risk (test code = CHD Risk) 2.35 4.00-7.30 [facility] [id number] 11:00:50 Test Item Value Reference Range Interpretation Comments VLDL (test code = VLDL) 27 [facility] [id number] 11:00:50 Test Item Value Reference Range Interpretation Comments LDL (Calculated) (test code = LDL 46 (Calculated)) [facility] [id number] 11:00:50 Test Item Value Reference Range Interpretation Comments Chol (test code = Chol) 127 [facility] DistrictPuykcphNMHWTS5994-61-61 11:00:50 Test Item Value Reference Range Interpretation Comments HDL (test code = HDL) 54 [facility] [id number] 11:00:50 Test Item Value Reference Range Interpretation Comments Trig (test code = Trig) 135 [facility] [id number] 11:00:50 Test Item Value Reference Range Interpretation Comments Hgb A1C (test code = Hgb A1C) 6.1 [facility] [id number] 11:00:50 Test Item Value Reference Range Interpretation Comments CHD Risk (test code = CHD Risk) 2.35 4.00-7.30 [facility] CenterVbncycqKEQAUB1096-68-21 11:00:50 Test Item Value Reference Range Interpretation Comments VLDL (test code = VLDL) 27 [facility] [id number] 11:00:50 Test Item Value Reference Range Interpretation Comments LDL (Calculated) (test code = LDL 46 (Calculated)) [facility] CenterGunvpgvUVRTKH2935-02-91 11:00:50 Test Item Value Reference Range Interpretation Comments Chol (test code = Chol) 127 [facility] CenterCicoemkVRIKML5672-91-08 11:00:50 Test Item Value Reference Range Interpretation Comments HDL (test code = HDL) 54 [facility] [id number] 11:00:50 Test Item Value Reference Range Interpretation Comments Trig (test code = Trig) 135 [facility] [id number] 11:00:50 Test Item Value Reference Range Interpretation Comments Hgb A1C (test code = Hgb A1C) 6.1 [facility] CenterDvdhcszZEQFPP5797-10-33 11:00:50 Test Item Value Reference Range Interpretation Comments CHD Risk (test code = CHD Risk) 2.35 4.00-7.30 [facility] DistrictLoysrzpFDHBBM5140-95-95 11:00:50 Test Item Value Reference Range Interpretation Comments VLDL (test code = VLDL) 27 [facility] [id number] 11:00:50 Test Item Value Reference Range Interpretation Comments LDL (Calculated) (test code = LDL 46 (Calculated)) [facility] [id number] 11:00:50 Test Item Value Reference Range Interpretation Comments Chol (test code = Chol) 127 [facility] DistrictJgegrjvUSTHPC8585-65-89 11:00:50 Test Item Value Reference Range Interpretation Comments HDL (test code = HDL) 54 [facility] [id number] 11:00:50 Test Item Value Reference Range Interpretation Comments Trig (test code = Trig) 135 [facility] [id number] 11:00:50 Test Item Value Reference Range Interpretation Comments Hgb A1C (test code = Hgb A1C) 6.1 [facility]annCARDIAC [id number] 04:12:00 Test Item Value Reference Range Interpretation Comments CK MB Index (test no gt See_Comment [Automate d message] The code = CK MB Index) system w [facility] generated this result transmit stuart reference range : <=2.5. The reference range was not used to interpr et this result as cherry l/abnormal. [facility]annCARDIAC [id number] 04:12:00 Test Item Value Reference Range Interpretation Comments Troponin-I (test code no gt See_Comment [Auto mated message] The = Troponin-I) system which g enerated this result transmit stuart reference range : <=0.40. The reference r jose alfredo was not used to interpr et this result as cherry l/abnormal. [facility]annCARDIAC [id number] 04:12:00 Test Item Value Reference Range Interpretation Comments CK MB (test code = CK MB) no gt 0.5-3.6 [facility]annCARDIAC [id number] 04:12:00 Test Item Value Reference Range Interpretation Comments Total CK (test code = Total CK) 49 12-191 [facility]annCARDIAC [id number] 04:12:00 Test Item Value Reference Range Interpretation Comments BNP (test code = BNP) 32 [facility] DistrictannCHEM [id number] 04:12:00 Test Item Value Reference Range Interpretation Comments Globulin (test code = Globulin) 3.3 2.7-4.2 [facility]2016-11-27 04:12:00 Test Item Value Reference Range Interpretation Comments A/G Ratio (test code = A/G Ratio) 1.0 0.7-1.6 [place] [id number] 04:12:00 Test Item Value Reference Range Interpretation Comments eGFR (test code = eGFR) 53 [facility]2016-11-27 04:12:00 Test Item Value Reference Range Interpretation Comments AST (test code = AST) 11 See_Comment [Auto mated message] The system which ge nerated this result transmit stuart reference range : <=37. The reference range was not used to interpr et this result as cherry l/abnormal. [place] [id number] 04:12:00 Test Item Value Reference Range Interpretation Comments Alk Phos (test code = Alk Phos) 38 39-136 [facility]2016-11-27 04:12:00 Test Item Value Reference Range Interpretation Comments Bili Total (test code = Bili Total) 0.2 0.2-1.3 [place] [id number] 04:12:00 Test Item Value Reference Range Interpretation Comments AGAP (test code = AGAP) 10.0 10.0-20.0 [place] [id number] 04:12:00 Test Item Value Reference Range Interpretation Comments B/C Ratio (test code = B/C Ratio) 21 6-25 [facility]2016-11-27 04:12:00 Test Item Value Reference Range Interpretation Comments ALT (test code = ALT) 16 See_Comment [Auto mated message] The system which ge nerated this result transmit stuart reference range : <=65. The reference range was not used to interpr et this result as cherry l/abnormal. [facility]2016-11-27 04:12:00 Test Item Value Reference Range Interpretation Comments Albumin Lvl (test code = Albumin Lvl) 3.3 3.5-5.0 [place] [id number] 04:12:00 Test Item Value Reference Range Interpretation Comments Calcium Lvl (test code = Calcium Lvl) 8.3 8.5-10.5 [place] [id number] 04:12:00 Test Item Value Reference Range Interpretation Comments CO2 (test code = CO2) 34 24-32 [facility]2016-11-27 04:12:00 Test Item Value Reference Range Interpretation Comments Total Protein (test code = Total 6.6 6.4-8.4 Protein) [place] [id number] 04:12:00 Test Item Value Reference Range Interpretation Comments Glucose Lvl (test code = Glucose Lvl) 161 70-99 [facility]2016-11-27 04:12:00 Test Item Value Reference Range Interpretation Comments Potassium Lvl (test code = Potassium 4.0 3.5-5.1 Lvl) [facility]2016-11-27 04:12:00 Test Item Value Reference Range Interpretation Comments Chloride Lvl (test code = Chloride Lvl) 99 95-109 [place] [id number] 04:12:00 Test Item Value Reference Range Interpretation Comments Creatinine Lvl (test code = Creatinine 1.34 0.50-1.40 Lvl) [facility]2016-11-27 04:12:00 Test Item Value Reference Range Interpretation Comments BUN (test code = BUN) 28 7-22 [facility]2016-11-27 04:12:00 Test Item Value Reference Range Interpretation Comments Sodium Lvl (test code = Sodium Lvl) 139 135-145 [facility] HospitalOmgfgalFHKHPZDWBR0211-20-73 04:12:00 Test Item Value Reference Range Interpretation Comments Basophils # (test code 0.1 See_Comment [Aut omated message] The = Basophils #) system which generated this result tra nsmitted reference range : <=0.2. The reference r jose alfredo was not used to int erpret this result as normal/abnormal . [facility] HospitalAsjzrmzRUJSKFJOBD7084-00-82 04:12:00 Test Item Value Reference Range Interpretation Comments Segs-Bands # (test code = Segs-Bands #) 5.2 1.5-8.1 [facility] HospitalQvrejatEJSHLDEBVQ0157-99-53 04:12:00 Test Item Value Reference Range Interpretation Comments Lymphocytes (test code = Lymphocytes) 22.2 20.0-40.0 [facility] HospitalDawtvblYHBQQISCPL5775-68-00 04:12:00 Test Item Value Reference Range Interpretation Comments Monocytes (test code = Monocytes) 13.7 2.0-12.0 [facility] HospitalSjdnnpwAZYXSMDPKH5699-70-08 04:12:00 Test Item Value Reference Range Interpretation Comments Eosinophils # (test code 0.2 See_Comment [A utomated message] The = Eosinophils #) system whic h generated this result tra nsmitted reference range : <=0.5. The reference r jose alfredo was not used to int erpret this result as normal/abnormal . [facility] HospitalEzdjwpqCAIGFQBQVX5453-51-10 04:12:00 Test Item Value Reference Range Interpretation Comments Lymphocytes # (test code = Lymphocytes 1.9 1.0-5.5 #) [facility] HospitalPsnptvrPRLGPFPHHT8683-30-48 04:12:00 Test Item Value Reference Range Interpretation Comments Monocytes # (test code 1.2 See_Comment [Aut omated message] The = Monocytes #) system which generated this result tra nsmitted reference range : <=0.8. The reference r jose alfredo was not used to int erpret this result as normal/abnormal . [facility] HospitalOaljtouTCSPLMJXHQ8565-66-35 04:12:00 Test Item Value Reference Range Interpretation Comments Segs (test code = Segs) 60.8 45.0-75.0 [facility] HospitalUquaexiFYQUUJRDND4934-89-17 04:12:00 Test Item Value Reference Range Interpretation Comments Eosinophils (test code = 2.7 See_Comment [A utomated message] The Eosinophils) system which ge nerated this result tra nsmitted reference range : <=4.0. The reference r jose alfredo was not used to int erpret this result as normal/abnormal . [facility] HospitalNbquzzlZVXKUXHCQQ5815-11-62 04:12:00 Test Item Value Reference Range Interpretation Comments Basophils (test code = 0.6 See_Comment [Aut omated message] The Basophils) system which ge nerated this result tra nsmitted reference range : <=1.0. The reference r jose alfredo was not used to int erpret this result as normal/abnormal . [facility] HospitalAltggfeKPKRCDFSWD0095-09-40 04:12:00 Test Item Value Reference Range Interpretation Comments PTT (test code = PTT) 26.5 s 22.9-35.8 [facility] HospitalJwyrmxmBQVULAECEC0993-27-51 04:12:00 Test Item Value Reference Range Interpretation Comments PT (test code = PT) 13.6 s 12.0-14.7 [facility] HospitalHnzhzwfBNLNDTAMVF8551-65-44 04:12:00 Test Item Value Reference Range Interpretation Comments INR (test code = INR) 1.02 0.85-1.17 [facility] HospitalEsmxoriWEYPHZIFDF4919-13-50 04:12:00 Test Item Value Reference Range Interpretation Comments Platelet (test code = Platelet) 181 133-450 [facility] HospitalBdezrblITQMDVJXLN5163-91-66 04:12:00 Test Item Value Reference Range Interpretation Comments MPV (test code = MPV) 10.9 7.4-10.4 [facility] HospitalBocssjlRFHNFRLVTJ5530-34-99 04:12:00 Test Item Value Reference Range Interpretation Comments MCH (test code = MCH) 29.9 pg 27.0-31.0 [facility] HospitalMbqnbpgXATNCGOGIC6202-87-37 04:12:00 Test Item Value Reference Range Interpretation Comments MCHC (test code = MCHC) 33.2 32.0-36.0 [facility] HospitalIfjaxyrMRJQCJFEFW3432-67-14 04:12:00 Test Item Value Reference Range Interpretation Comments MCV (test code = MCV) 90.2 80.0-94.0 [facility] HospitalSrstuipAREFIPGREE7453-95-97 04:12:00 Test Item Value Reference Range Interpretation Comments RDW (test code = RDW) 13.3 11.5-14.5 [facility] HospitalObotcgkAHIPAPWTYA6757-06-30 04:12:00 Test Item Value Reference Range Interpretation Comments Hgb (test code = Hgb) 13.4 14.0-18.0 [facility] HospitalNjbkpdhPSTGUNPIOW4792-60-48 04:12:00 Test Item Value Reference Range Interpretation Comments Hct (test code = Hct) 40.3 42.0-54.0 [facility] HospitalQxotjydSNWOKCAZRU9052-40-96 04:12:00 Test Item Value Reference Range Interpretation Comments WBC (test code = WBC) 8.5 3.7-10.4 [facility] HospitalScmxnuwDQQGBTQISM9697-08-51 04:12:00 Test Item Value Reference Range Interpretation Comments RBC (test code = RBC) 4.47 4.70-6.10 [facility] AND [id number] 04:12:00 Test Item Value Reference Range Interpretation Comments UA Bacteria (test code = None Seen (07/27/16 UA Bacteria) 10:12 PM) [facility] AND [id number] 04:12:00 Test Item Value Reference Range Interpretation Comments UA WBC (test code = UA None Seen (07/27/16 WBC) 10:12 PM) [facility] AND [id number] 04:12:00 Test Item Value Reference Range Interpretation Comments UA RBC (test None Seen See_Comment [Automated mes moises] code = UA RBC) (07/27/16 10:12 The system which PM) generated this result transmitted ref erence range: <=2. The reference range was not used to int erpret this result as normal/abnormal . [facility] AND [id number] 04:12:00 Test Item Value Reference Range Interpretation Comments UA Sq Epi (test code = UA Sq Epi) Rare /LPF [facility] AND [id number] 04:12:00 Test Item Value Reference Range Interpretation Comments UA Nitrite (test code Negative (07/27/16 = UA Nitrite) 10:12 PM) [facility] AND [id number] 04:12:00 Test Item Value Reference Range Interpretation Comments UA Leuk Est (test Negative (07/27/16 10:12 code = UA Leuk Est) PM) [facility] AND [id number] 04:12:00 Test Item Value Reference Range Interpretation Comments UA Ketones (test code = UA Negative mg/dL Ketones) [facility] AND [id number] 04:12:00 Test Item Value Reference Range Interpretation Comments UA Bili (test code = Negative *NA*(07/27/16 UA Bili) 10:12 PM) [facility] AND [id number] 04:12:00 Test Item Value Reference Range Interpretation Comments UA Blood (test code = Negative (07/27/16 10:12 UA Blood) PM) [facility] AND [id number] 04:12:00 Test Item Value Reference Range Interpretation Comments UA Urobilinogen (test code = UA 0.2 0.1-1.0 Urobilinogen) [facility] AND [id number] 04:12:00 Test Item Value Reference Range Interpretation Comments UA Spec Grav (test code = UA Spec 1.010 1 Grav) [facility] AND [id number] 04:12:00 Test Item Value Reference Range Interpretation Comments UA Color (test code = Yellow *NA*(07/27/16 [facility]A Color) 10:12 PM) [facility] [id number] 04:12:00 Test Item Value Reference Range Interpretation Comments UA Turbidity (test code = Clear (07/27/16 UA Turbidity) 10:12 PM) [facility] [id number] 04:12:00 Test Item Value Reference Range Interpretation Comments UA pH (test code = UA pH) 7.5 1 5.0-8.0 [facility] [id number] 04:12:00 Test Item Value Reference Range Interpretation Comments UA Protein (test code = UA Negative mg/dL Protein) [facility] [id number] 04:12:00 Test Item Value Reference Range Interpretation Comments UA Glucose (test code = UA Negative mg/dL Glucose) [facility] [id number] 04:12:00 Test Item Value Reference Range Interpretation Comments CK MB Index (test no gt See_Comment [Automate d message] The code = CK MB Index) system w [facility] generated this result transmit stuart reference range : <=2.5. The reference range was not used to interpr et this result as cherry l/abnormal. [facility] [id number] 04:12:00 Test Item Value Reference Range Interpretation Comments Troponin-I (test code no gt See_Comment [Auto mated message] The = Troponin-I) system which g enerated this result transmit stuart reference range : <=0.40. The reference r jose alfredo was not used to interpr et this result as cherry l/abnormal. [facility] [id number] 04:12:00 Test Item Value Reference Range Interpretation Comments CK MB (test code = CK MB) no gt 0.5-3.6 [facility] HermannCARDIAC [id number] 04:12:00 Test Item Value Reference Range Interpretation Comments Total CK (test code = Total CK) 49 12-191 [facility]annCARD[facility]AC [id number] 04:12:00 Test Item Value Reference Range Interpretation Comments BNP (test code = BNP) 32 [facility] [id number] 04:12:00 Test Item Value Reference Range Interpretation Comments Globulin (test code = Globulin) 3.3 2.7-4.2 [place] [id number] 04:12:00 Test Item Value Reference Range Interpretation Comments A/G Ratio (test code = A/G Ratio) 1.0 0.7-1.6 [place] [id number] 04:12:00 Test Item Value Reference Range Interpretation Comments eGFR (test code = eGFR) 53 [facility]2016-11-27 04:12:00 Test Item Value Reference Range Interpretation Comments AST (test code = AST) 11 See_Comment [Auto mated message] The system which ge nerated this result transmit stuart reference range : <=37. The reference range was not used to interpr et this result as cherry l/abnormal. [place] [id number] 04:12:00 Test Item Value Reference Range Interpretation Comments Alk Phos (test code = Alk Phos) 38 39-136 [facility]2016-11-27 04:12:00 Test Item Value Reference Range Interpretation Comments Bili Total (test code = Bili Total) 0.2 0.2-1.3 [facility]2016-11-27 04:12:00 Test Item Value Reference Range Interpretation Comments AGAP (test code = AGAP) 10.0 10.0-20.0 [facility]2016-11-27 04:12:00 Test Item Value Reference Range Interpretation Comments B/C Ratio (test code = B/C Ratio) 21 6-25 [facility]2016-11-27 04:12:00 Test Item Value Reference Range Interpretation Comments ALT (test code = ALT) 16 See_Comment [Auto mated message] The system which ge nerated this result transmit stuart reference range : <=65. The reference range was not used to interpr et this result as cherry l/abnormal. [place] [id number] 04:12:00 Test Item Value Reference Range Interpretation Comments Albumin Lvl (test code = Albumin Lvl) 3.3 3.5-5.0 [facility]2016-11-27 04:12:00 Test Item Value Reference Range Interpretation Comments Calcium Lvl (test code = Calcium Lvl) 8.3 8.5-10.5 [place] [id number] 04:12:00 Test Item Value Reference Range Interpretation Comments CO2 (test code = CO2) 34 24-32 [facility]2016-11-27 04:12:00 Test Item Value Reference Range Interpretation Comments Total Protein (test code = Total 6.6 6.4-8.4 Protein) [facility]2016-11-27 04:12:00 Test Item Value Reference Range Interpretation Comments Glucose Lvl (test code = Glucose Lvl) 161 70-99 [facility]2016-11-27 04:12:00 Test Item Value Reference Range Interpretation Comments Potassium Lvl (test code = Potassium 4.0 3.5-5.1 Lvl) [facility]2016-11-27 04:12:00 Test Item Value Reference Range Interpretation Comments Chloride Lvl (test code = Chloride Lvl) 99 95-109 [facility]2016-11-27 04:12:00 Test Item Value Reference Range Interpretation Comments Creatinine Lvl (test code = Creatinine 1.34 0.50-1.40 Lvl) [facility]2016-11-27 04:12:00 Test Item Value Reference Range Interpretation Comments BUN (test code = BUN) 28 7-22 [facility]2016-11-27 04:12:00 Test Item Value Reference Range Interpretation Comments Sodium Lvl (test code = Sodium Lvl) 139 135-145 [facility] HospitalGgokyfxRKBGNWPWAG4562-88-06 04:12:00 Test Item Value Reference Range Interpretation Comments Basophils # (test code 0.1 See_Comment [Aut omated message] The = Basophils #) system which generated this result tra nsmitted reference range : <=0.2. The reference r jose alfredo was not used to int erpret this result as normal/abnormal . [facility] Hos[id number] 04:12:00 Test Item Value Reference Range Interpretation Comments Segs-Bands # (test code = Segs-Bands #) 5.2 1.5-8.1 [facility] HospitalAshygriDDACWXYHBJ7528-42-26 04:12:00 Test Item Value Reference Range Interpretation Comments Lymphocytes (test code = Lymphocytes) 22.2 20.0-40.0 [facility] HospitalCsnaakpVMBZLUTOSG4722-22-72 04:12:00 Test Item Value Reference Range Interpretation Comments Monocytes (test code = Monocytes) 13.7 2.0-12.0 [facility] HospitalSmhckcpGVGWCTPDEY3790-22-54 04:12:00 Test Item Value Reference Range Interpretation Comments Eosinophils # (test code 0.2 See_Comment [A utomated message] The = Eosinophils #) system wh h generated this result tra nsmitted reference range : <=0.5. The reference r jose alfredo was not used to int erpret this result as normal/abnormal . [facility] HospitalBrtbvwmBBVCBKORTS6121-78-49 04:12:00 Test Item Value Reference Range Interpretation Comments Lymphocytes # (test code = Lymphocytes 1.9 1.0-5.5 #) [facility] HospitalHfepiwkUPBAAIZRJN0401-98-94 04:12:00 Test Item Value Reference Range Interpretation Comments Monocytes # (test code 1.2 See_Comment [Aut omated message] The = Monocytes #) system which generated this result tra nsmitted reference range : <=0.8. The reference r jose alfredo was not used to int erpret this result as normal/abnormal . [facility] HospitalLlchvtvCBZKRMEQLF3821-85-53 04:12:00 Test Item Value Reference Range Interpretation Comments Segs (test code = Segs) 60.8 45.0-75.0 [facility] HospitalFxpbthdQNWQFPIOXA0831-34-20 04:12:00 Test Item Value Reference Range Interpretation Comments Eosinophils (test code = 2.7 See_Comment [A utomated message] The Eosinophils) system which ge nerated this result tra nsmitted reference range : <=4.0. The reference r jose alfredo was not used to int erpret this result as normal/abnormal . [facility] HospitalJxbkucyVWLUFMRXBU2112-01-42 04:12:00 Test Item Value Reference Range Interpretation Comments Basophils (test code = 0.6 See_Comment [Aut omated message] The Basophils) system which ge nerated this result tra nsmitted reference range : <=1.0. The reference r jose alfredo was not used to int erpret this result as normal/abnormal . [facility] Hos[id number] 04:12:00 Test Item Value Reference Range Interpretation Comments PTT (test code = PTT) 26.5 s 22.9-35.8 [facility] HospitalKqfainxYDNVXCAOMR8872-52-89 04:12:00 Test Item Value Reference Range Interpretation Comments PT (test code = PT) 13.6 s 12.0-14.7 [facility] HospitalEeazikeFJCOUIONQT9024-80-87 04:12:00 Test Item Value Reference Range Interpretation Comments INR (test code = INR) 1.02 0.85-1.17 [facility] HospitalTrabxhaTUDFEWHDGZ9289-92-10 04:12:00 Test Item Value Reference Range Interpretation Comments Platelet (test code = Platelet) 181 133-450 [facility] HospitalWmkonuqHZXUENUVYK4244-93-72 04:12:00 Test Item Value Reference Range Interpretation Comments MPV (test code = MPV) 10.9 7.4-10.4 [facility] HospitalYrypczsBILINXCJSY8448-89-69 04:12:00 Test Item Value Reference Range Interpretation Comments MCH (test code = MCH) 29.9 pg 27.0-31.0 [facility] H[id number] 04:12:00 Test Item Value Reference Range Interpretation Comments MCHC (test code = MCHC) 33.2 32.0-36.0 [facility] HospitalSlrejeyJZCLDHGIJC5330-77-93 04:12:00 Test Item Value Reference Range Interpretation Comments MCV (test code = MCV) 90.2 80.0-94.0 [facility] HospitalMvsuzckEDNXQCNEOE8446-95-12 04:12:00 Test Item Value Reference Range Interpretation Comments RDW (test code = RDW) 13.3 11.5-14.5 [facility] HospitalTjpxuwvAKPXQHECRN0567-80-37 04:12:00 Test Item Value Reference Range Interpretation Comments Hgb (test code = Hgb) 13.4 14.0-18.0 [facility] HospitalCifzqkhUPWTMRFVVV8430-91-25 04:12:00 Test Item Value Reference Range Interpretation Comments Hct (test code = Hct) 40.3 42.0-54.0 [facility] HospitalCrwzgluJIYCPNQCBO9766-47-97 04:12:00 Test Item Value Reference Range Interpretation Comments WBC (test code = WBC) 8.5 3.7-10.4 [facility] HospitalNxxclsbMQKYBBLHZG8624-47-84 04:12:00 Test Item Value Reference Range Interpretation Comments RBC (test code = RBC) 4.47 4.70-6.10 [facility] AND [id number] 04:12:00 Test Item Value Reference Range Interpretation Comments UA Bacteria (test code = None Seen (07/27/16 UA Bacteria) 10:12 PM) [facility] AND [id number] 04:12:00 Test Item Value Reference Range Interpretation Comments UA WBC (test code = UA None Seen (07/27/16 WBC) 10:12 PM) [facility] [id number] 04:12:00 Test Item Value Reference Range Interpretation Comments UA RBC (test None Seen See_Comment [Automated mes moises] code = UA RBC) (07/27/16 10:12 The system which PM) generated this result transmitted ref erence range: <=2. The reference range was not used to int erpret this result as normal/abnormal . [facility] AND [id number] 04:12:00 Test Item Value Reference Range Interpretation Comments UA Sq Epi (test code = UA Sq Epi) Rare /LPF [facility] AND [id number] 04:12:00 Test Item Value Reference Range Interpretation Comments UA Nitrite (test code Negative (07/27/16 = UA Nitrite) 10:12 PM) [facility] AND [id number] 04:12:00 Test Item Value Reference Range Interpretation Comments UA Leuk Est (test Negative (07/27/16 10:12 code = UA Leuk Est) PM) [facility] AND [id number] 04:12:00 Test Item Value Reference Range Interpretation Comments UA Ketones (test code = UA Negative mg/dL Ketones) [facility] AND [id number] 04:12:00 Test Item Value Reference Range Interpretation Comments UA Bili (test code = Negative *NA*(07/27/16 UA Bili) 10:12 PM) [facility] AND [id number] 04:12:00 Test Item Value Reference Range Interpretation Comments UA Blood (test code = Negative (07/27/16 10:12 UA Blood) PM) [facility] AND [id number] 04:12:00 Test Item Value Reference Range Interpretation Comments UA Urobilinogen (test code = UA 0.2 0.1-1.0 Urobilinogen) [facility] AND [id number] 04:12:00 Test Item Value Reference Range Interpretation Comments UA Spec Grav (test code = UA Spec 1.010 1 Grav) [facility] AND [id number] 04:12:00 Test Item Value Reference Range Interpretation Comments UA Color (test code = Yellow *NA*(07/27/16 UA Color) 10:12 PM) [facility] [id number] 04:12:00 Test Item Value Reference Range Interpretation Comments UA Turbidity (test code = Clear (07/27/16 UA Turbidity) 10:12 PM) [facility] [id number] 04:12:00 Test Item Value Reference Range Interpretation Comments UA pH (test code = UA pH) 7.5 1 5.0-8.0 [facility] [id number] 04:12:00 Test Item Value Reference Range Interpretation Comments UA Protein (test code = UA Negative mg/dL Protein) [facility] [id number] 04:12:00 Test Item Value Reference Range Interpretation Comments UA Glucose (test code = UA Negative mg/dL Glucose) [facility] [id number] 04:12:00 Test Item Value Reference Range Interpretation Comments CK MB Index (test no gt See_Comment [Automate d message] The code = CK MB Index) system w [facility] generated this result transmit stuart reference range : <=2.5. The reference range was not used to interpr et this result as cherry l/abnormal. [facility] [id number] 04:12:00 Test Item Value Reference Range Interpretation Comments Troponin-I (test code no gt See_Comment [Auto mated message] The = Troponin-I) system which g enerated this result transmit stuart reference range : <=0.40. The reference r jose alfredo was not used to interpr et this result as cherry l/abnormal. [facility] [id number] 04:12:00 Test Item Value Reference Range Interpretation Comments CK MB (test code = CK MB) no gt 0.5-3.6 [facility] [id number] 04:12:00 Test Item Value Reference Range Interpretation Comments Total CK (test code = Total CK) 49 12-191 [facility] [id number] 04:12:00 Test Item Value Reference Range Interpretation Comments BNP (test code = BNP) 32 [facility]annCHEM [id number] 04:12:00 Test Item Value Reference Range Interpretation Comments Globulin (test code = Globulin) 3.3 2.7-4.2 [place] 766666-11-27 04:12:00 Test Item Value Reference Range Interpretation Comments A/G Ratio (test code = A/G Ratio) 1.0 0.7-1.6 [place] 766666-11-27 04:12:00 Test Item Value Reference Range Interpretation Comments eGFR (test code = eGFR) 53 [place] 766666-11-27 04:12:00 Test Item Value Reference Range Interpretation Comments AST (test code = AST) 11 See_Comment [Auto mated message] The system which ge nerated this result transmit stuart reference range : <=37. The reference range was not used to interpr et this result as cherry l/abnormal. [place] 766666-11-27 04:12:00 Test Item Value Reference Range Interpretation Comments Alk Phos (test code = Alk Phos) 38 39-136 [place] 766666-11-27 04:12:00 Test Item Value Reference Range Interpretation Comments Bili Total (test code = Bili Total) 0.2 0.2-1.3 [place] 766666-11-27 04:12:00 Test Item Value Reference Range Interpretation Comments AGAP (test code = AGAP) 10.0 10.0-20.0 [place] 766666-11-27 04:12:00 Test Item Value Reference Range Interpretation Comments B/C Ratio (test code = B/C Ratio) 21 6-25 [place] 766666-11-27 04:12:00 Test Item Value Reference Range Interpretation Comments ALT (test code = ALT) 16 See_Comment [Auto mated message] The system which ge nerated this result transmit stuart reference range : <=65. The reference range was not used to interpr et this result as cherry l/abnormal. [place] 766666-11-27 04:12:00 Test Item Value Reference Range Interpretation Comments Albumin Lvl (test code = Albumin Lvl) 3.3 3.5-5.0 [place] 766666-11-27 04:12:00 Test Item Value Reference Range Interpretation Comments Calcium Lvl (test code = Calcium Lvl) 8.3 8.5-10.5 [place] 766666-11-27 04:12:00 Test Item Value Reference Range Interpretation Comments CO2 (test code = CO2) 34 24-32 [place] 766666-11-27 04:12:00 Test Item Value Reference Range Interpretation Comments Total Protein (test code = Total 6.6 6.4-8.4 Protein) [facility]2016-11-27 04:12:00 Test Item Value Reference Range Interpretation Comments Glucose Lvl (test code = Glucose Lvl) 161 70-99 [facility]2016-11-27 04:12:00 Test Item Value Reference Range Interpretation Comments Potassium Lvl (test code = Potassium 4.0 3.5-5.1 Lvl) [place] 766666-11-27 04:12:00 Test Item Value Reference Range Interpretation Comments Chloride Lvl (test code = Chloride Lvl) 99 95-109 [place] 766666-11-27 04:12:00 Test Item Value Reference Range Interpretation Comments Creatinine Lvl (test code = Creatinine 1.34 0.50-1.40 Lvl) [place] 766666-11-27 04:12:00 Test Item Value Reference Range Interpretation Comments BUN (test code = BUN) 28 7-22 [facility]2016-11-27 04:12:00 Test Item Value Reference Range Interpretation Comments Sodium Lvl (test code = Sodium Lvl) 139 135-145 [facility] HospitalEtqfpmgPXMRFZOLPG4919-13-35 04:12:00 Test Item Value Reference Range Interpretation Comments Basophils # (test code 0.1 See_Comment [Aut omated message] The = Basophils #) system which generated this result tra nsmitted reference range : <=0.2. The reference r jose alfredo was not used to int erpret this result as normal/abnormal . [facility] HospitalOhtbdsmBMUKIKDDTY5198-74-85 04:12:00 Test Item Value Reference Range Interpretation Comments Segs-Bands # (test code = Segs-Bands #) 5.2 1.5-8.1 [place] [id number] 04:12:00 Test Item Value Reference Range Interpretation Comments Lymphocytes (test code = Lymphocytes) 22.2 20.0-40.0 [facility] HospitalIjaobcfJHKPIQLNSN1318-33-29 04:12:00 Test Item Value Reference Range Interpretation Comments Monocytes (test code = Monocytes) 13.7 2.0-12.0 [facility] HospitalGxgzyfxARYMMMTFHT1878-28-26 04:12:00 Test Item Value Reference Range Interpretation Comments Eosinophils # (test code 0.2 See_Comment [A utomated message] The = Eosinophils #) system wh h generated this result tra nsmitted reference range : <=0.5. The reference r jose alfredo was not used to int erpret this result as normal/abnormal . [facility] HospitalHhwoqwmJSSYZUYLUT6858-99-22 04:12:00 Test Item Value Reference Range Interpretation Comments Lymphocytes # (test code = Lymphocytes 1.9 1.0-5.5 #) [facility] HospitalRcftjcnEZXSELIGRB5090-98-61 04:12:00 Test Item Value Reference Range Interpretation Comments Monocytes # (test code 1.2 See_Comment [Aut omated message] The = Monocytes #) system which generated this result tra nsmitted reference range : <=0.8. The reference r jose alfredo was not used to int erpret this result as normal/abnormal . [facility] HospitalRtavztyFXCOWSJDYA5440-10-03 04:12:00 Test Item Value Reference Range Interpretation Comments Segs (test code = Segs) 60.8 45.0-75.0 [facility] HospitalZtvstuaCKPJMCKHIR8134-91-39 04:12:00 Test Item Value Reference Range Interpretation Comments Eosinophils (test code = 2.7 See_Comment [A utomated message] The Eosinophils) system which ge nerated this result tra nsmitted reference range : <=4.0. The reference r jose alfredo was not used to int erpret this result as normal/abnormal . [facility] HospitalWuptztqVCVLLFQDNJ4938-65-26 04:12:00 Test Item Value Reference Range Interpretation Comments Basophils (test code = 0.6 See_Comment [Aut omated message] The Basophils) system which ge nerated this result tra nsmitted reference range : <=1.0. The reference r jose alfredo was not used to int erpret this result as normal/abnormal . [facility] HospitalUbuiebyTKYUYOELWK0675-76-55 04:12:00 Test Item Value Reference Range Interpretation Comments PTT (test code = PTT) 26.5 s 22.9-35.8 [facility] HospitalQkvvwtqCWEWFIPOWH8351-50-70 04:12:00 Test Item Value Reference Range Interpretation Comments PT (test code = PT) 13.6 s 12.0-14.7 [facility] HospitalXvrhphfPAPVXFQSJA2611-92-54 04:12:00 Test Item Value Reference Range Interpretation Comments INR (test code = INR) 1.02 0.85-1.17 [facility] HospitalQcvuasqRHPKHGLSMB9986-40-83 04:12:00 Test Item Value Reference Range Interpretation Comments Platelet (test code = Platelet) 181 133-450 [facility] HospitalQiqccmmBBZEQHORNS7006-98-20 04:12:00 Test Item Value Reference Range Interpretation Comments MPV (test code = MPV) 10.9 7.4-10.4 [facility] HospitalSmymotdCRHYTULCNX7965-49-66 04:12:00 Test Item Value Reference Range Interpretation Comments MCH (test code = MCH) 29.9 pg 27.0-31.0 [facility] HospitalPuovwmvPCTPYHIIRT8602-25-89 04:12:00 Test Item Value Reference Range Interpretation Comments MCHC (test code = MCHC) 33.2 32.0-36.0 [facility] HospitalZuxspzsDZCHTUZTJX6011-25-25 04:12:00 Test Item Value Reference Range Interpretation Comments MCV (test code = MCV) 90.2 80.0-94.0 [facility] HospitalMvyqxlmPSSONNGSOY6369-95-67 04:12:00 Test Item Value Reference Range Interpretation Comments RDW (test code = RDW) 13.3 11.5-14.5 [facility] HospitalHmabpweBAICGXGCSA1400-07-24 04:12:00 Test Item Value Reference Range Interpretation Comments Hgb (test code = Hgb) 13.4 14.0-18.0 [facility] HospitalStngpftMQRQKWKCAF6228-95-84 04:12:00 Test Item Value Reference Range Interpretation Comments Hct (test code = Hct) 40.3 42.0-54.0 [facility] HospitalOcpyhcmGMXODPWAQG2517-94-29 04:12:00 Test Item Value Reference Range Interpretation Comments WBC (test code = WBC) 8.5 3.7-10.4 [facility] HospitalBfokgzwCTBXBGDIXU5093-27-24 04:12:00 Test Item Value Reference Range Interpretation Comments RBC (test code = RBC) 4.47 4.70-6.10 [facility] AND [id number] 04:12:00 Test Item Value Reference Range Interpretation Comments UA Bacteria (test code = None Seen (07/27/16 UA Bacteria) 10:12 PM) [facility] AND [id number] 04:12:00 Test Item Value Reference Range Interpretation Comments UA WBC (test code = UA None Seen (07/27/16 WBC) 10:12 PM) [facility] AND [id number] 04:12:00 Test Item Value Reference Range Interpretation Comments UA RBC (test None Seen See_Comment [Automated mes moises] code = UA RBC) (07/27/16 10:12 The system which PM) generated this result transmitted ref erence range: <=2. The reference range was not used to int erpret this result as normal/abnormal . [facility] AND [id number] 04:12:00 Test Item Value Reference Range Interpretation Comments UA Sq Epi (test code = UA Sq Epi) Rare /LPF [facility] AND [id number] 04:12:00 Test Item Value Reference Range Interpretation Comments UA Nitrite (test code Negative (07/27/16 = UA Nitrite) 10:12 PM) [facility] AND [id number] 04:12:00 Test Item Value Reference Range Interpretation Comments UA Leuk Est (test Negative (07/27/16 10:12 code = UA Leuk Est) PM) [facility] AND [id number] 04:12:00 Test Item Value Reference Range Interpretation Comments UA Ketones (test code = UA Negative mg/dL Ketones) [facility] AND [id number] 04:12:00 Test Item Value Reference Range Interpretation Comments UA Bili (test code = Negative *NA*(07/27/16 UA Bili) 10:12 PM) [facility] AND [id number] 04:12:00 Test Item Value Reference Range Interpretation Comments UA Blood (test code = Negative (07/27/16 10:12 UA Blood) PM) [facility] AND [id number] 04:12:00 Test Item Value Reference Range Interpretation Comments UA Urobilinogen (test code = UA 0.2 0.1-1.0 Urobilinogen) [facility] AND [id number] 04:12:00 Test Item Value Reference Range Interpretation Comments UA Spec Grav (test code = UA Spec 1.010 1 Grav) [facility] AND [id number] 04:12:00 Test Item Value Reference Range Interpretation Comments UA Color (test code = Yellow *NA*(07/27/16 UA Color) 10:12 PM) [facility] AND [id number] 04:12:00 Test Item Value Reference Range Interpretation Comments UA Turbidity (test code = Clear (07/27/16 UA Turbidity) 10:12 PM) [facility] AND [id number] 04:12:00 Test Item Value Reference Range Interpretation Comments UA pH (test code = UA pH) 7.5 1 5.0-8.0 [facility] AND [id number] 04:12:00 Test Item Value Reference Range Interpretation Comments UA Protein (test code = UA Negative mg/dL Protein) [facility] AND [id number] 04:12:00 Test Item Value Reference Range Interpretation Comments UA Glucose (test code = UA Negative mg/dL Glucose) [facility] AND [id number] 16:03:00 Test Item Value Reference Range Interpretation Comments UA Leuk Est (test Negative (05/30/16 11:03 code = UA Leuk Est) AM) [facility] AND [id number] 16:03:00 Test Item Value Reference Range Interpretation Comments UA Turbidity (test code = Clear (05/30/16 11:03 UA Turbidity) AM) [facility] AND [id number] 16:03:00 Test Item Value Reference Range Interpretation Comments UA Nitrite (test code Negative (05/30/16 11:03 = UA Nitrite) AM) [facility] AND [id number] 16:03:00 Test Item Value Reference Range Interpretation Comments UA Urobilinogen (test code = UA 0.2 0.1-1.0 Urobilinogen) [facility] AND [id number] 16:03:00 Test Item Value Reference Range Interpretation Comments UA Spec Grav (test code = UA Spec 1.015 1 Grav) [facility] AND [id number] 16:03:00 Test Item Value Reference Range Interpretation Comments UA pH (test code = UA pH) 6.0 1 5.0-8.0 [facility] AND [id number] 16:03:00 Test Item Value Reference Range Interpretation Comments UA Protein (test code Negative (05/30/16 11:03 = UA Protein) AM) [facility] AND [id number] 16:03:00 Test Item Value Reference Range Interpretation Comments UA Color (test code = Yellow *NA*(05/30/16 UA Color) 11:03 AM) [facility] AND [id number] 16:03:00 Test Item Value Reference Range Interpretation Comments UA Ketones (test code Negative *NA*(05/30/16 = UA Ketones) 11:03 AM) [facility] AND [id number] 16:03:00 Test Item Value Reference Range Interpretation Comments UA Glucose (test code Negative (05/30/16 11:03 = UA Glucose) AM) [facility] AND [id number] 16:03:00 Test Item Value Reference Range Interpretation Comments UA Blood (test code = Moderate *ABN*(05/30/16 UA Blood) 11:03 AM) [facility] AND [id number] 16:03:00 Test Item Value Reference Range Interpretation Comments UA Bili (test code = Negative *NA*(05/30/16 UA Bili) 11:03 AM) [facility] AND [id number] 16:03:00 Test Item Value Reference Range Interpretation Comments UA Sq Epi (test code = UA Sq Epi) Rare /LPF [facility] AND [id number] 16:03:00 Test Item Value Reference Range Interpretation Comments Micro? (test code = Performed (05/30/16 11:03 Micro?) AM) [facility] AND [id number] 16:03:00 Test Item Value Reference Range Interpretation Comments UA WBC (test code = UA None Seen (05/30/16 WBC) 11:03 AM) [facility] AND [id number] 16:03:00 Test Item Value Reference Range Interpretation Comments UA RBC (test None Seen See_Comment [Automated mes moises] code = UA RBC) (05/30/16 11:03 The system which AM) generated this result transmitted ref erence range: <=2. The reference range was not used to int erpret this result as normal/abnormal . [facility] AND [id number] 16:03:00 Test Item Value Reference Range Interpretation Comments UA Bacteria (test code = None Seen (05/30/16 UA Bacteria) 11:03 AM) [facility] AND [id number] 16:03:00 Test Item Value Reference Range Interpretation Comments UA Leuk Est (test Negative (05/30/16 11:03 code = UA Leuk Est) AM) [facility] AND [id number] 16:03:00 Test Item Value Reference Range Interpretation Comments UA Turbidity (test code = Clear (05/30/16 11:03 UA Turbidity) AM) [facility] AND [id number] 16:03:00 Test Item Value Reference Range Interpretation Comments UA Nitrite (test code Negative (05/30/16 11:03 = UA Nitrite) AM) [facility] AND [id number] 16:03:00 Test Item Value Reference Range Interpretation Comments UA Urobilinogen (test code = UA 0.2 0.1-1.0 Urobilinogen) [facility] AND [id number] 16:03:00 Test Item Value Reference Range Interpretation Comments UA Spec Grav (test code = UA Spec 1.015 1 Grav) [facility] AND [id number] 16:03:00 Test Item Value Reference Range Interpretation Comments UA pH (test code = UA pH) 6.0 1 5.0-8.0 [facility] AND [id number] 16:03:00 Test Item Value Reference Range Interpretation Comments UA Protein (test code Negative (05/30/16 11:03 = UA Protein) AM) [facility] AND [id number] 16:03:00 Test Item Value Reference Range Interpretation Comments UA Color (test code = Yellow *NA*(05/30/16 UA Color) 11:03 AM) [facility] AND [id number] 16:03:00 Test Item Value Reference Range Interpretation Comments UA Ketones (test code Negative *NA*(05/30/16 = UA Ketones) 11:03 AM) [facility] AND [id number] 16:03:00 Test Item Value Reference Range Interpretation Comments UA Glucose (test code Negative (05/30/16 11:03 = UA Glucose) AM) [facility] AND [id number] 16:03:00 Test Item Value Reference Range Interpretation Comments UA Blood (test code = Moderate *ABN*(05/30/16 UA Blood) 11:03 AM) [facility] AND [id number] 16:03:00 Test Item Value Reference Range Interpretation Comments UA Bili (test code = Negative *NA*(05/30/16 UA Bili) 11:03 AM) [facility] AND [id number] 16:03:00 Test Item Value Reference Range Interpretation Comments UA Sq Epi (test code = UA Sq Epi) Rare /LPF [facility] AND [id number] 16:03:00 Test Item Value Reference Range Interpretation Comments Micro? (test code = Performed (05/30/16 11:03 Micro?) AM) [facility] AND [id number] 16:03:00 Test Item Value Reference Range Interpretation Comments UA WBC (test code = UA None Seen (05/30/16 WBC) 11:03 AM) [facility] AND [id number] 16:03:00 Test Item Value Reference Range Interpretation Comments UA RBC (test None Seen See_Comment [Automated mes moises] code = UA RBC) (05/30/16 11:03 The system which AM) generated this result transmitted ref erence range: <=2. The reference range was not used to int erpret this result as normal/abnormal . [facility] AND [id number] 16:03:00 Test Item Value Reference Range Interpretation Comments UA Bacteria (test code = None Seen (05/30/16 UA Bacteria) 11:03 AM) [facility] AND [id number] 16:03:00 Test Item Value Reference Range Interpretation Comments UA Leuk Est (test Negative (05/30/16 11:03 code = UA Leuk Est) AM) [facility] AND [id number] 16:03:00 Test Item Value Reference Range Interpretation Comments UA Turbidity (test code = Clear (05/30/16 11:03 UA Turbidity) AM) [facility] AND [id number] 16:03:00 Test Item Value Reference Range Interpretation Comments UA Nitrite (test code Negative (05/30/16 11:03 = UA Nitrite) AM) [facility] AND [id number] 16:03:00 Test Item Value Reference Range Interpretation Comments UA Urobilinogen (test code = UA 0.2 0.1-1.0 Urobilinogen) [facility] AND [id number] 16:03:00 Test Item Value Reference Range Interpretation Comments UA Spec Grav (test code = UA Spec 1.015 1 Grav) [facility] AND [id number] 16:03:00 Test Item Value Reference Range Interpretation Comments UA pH (test code = UA pH) 6.0 1 5.0-8.0 [facility] AND [id number] 16:03:00 Test Item Value Reference Range Interpretation Comments UA Protein (test code Negative (05/30/16 11:03 = UA Protein) AM) [facility] AND [id number] 16:03:00 Test Item Value Reference Range Interpretation Comments UA Color (test code = Yellow *NA*(05/30/16 UA Color) 11:03 AM) [facility] AND [id number] 16:03:00 Test Item Value Reference Range Interpretation Comments UA Ketones (test code Negative *NA*(05/30/16 = UA Ketones) 11:03 AM) [facility] AND [id number] 16:03:00 Test Item Value Reference Range Interpretation Comments UA Glucose (test code Negative (05/30/16 11:03 = UA Glucose) AM) [facility] AND [id number] 16:03:00 Test Item Value Reference Range Interpretation Comments UA Blood (test code = Moderate *ABN*(05/30/16 UA Blood) 11:03 AM) [facility] AND [id number] 16:03:00 Test Item Value Reference Range Interpretation Comments UA Bili (test code = Negative *NA*(05/30/16 UA Bili) 11:03 AM) [facility] AND [id number] 16:03:00 Test Item Value Reference Range Interpretation Comments UA Sq Epi (test code = UA Sq Epi) Rare /LPF [facility] AND [id number] 16:03:00 Test Item Value Reference Range Interpretation Comments Micro? (test code = Performed (05/30/16 11:03 Micro?) AM) [facility] AND [id number] 16:03:00 Test Item Value Reference Range Interpretation Comments UA WBC (test code = UA None Seen (05/30/16 WBC) 11:03 AM) [facility] [id number] 16:03:00 Test Item Value Reference Range Interpretation Comments UA RBC (test None Seen See_Comment [Automated mes moises] code = UA RBC) (05/30/16 11:03 The system which AM) generated this result transmitted ref erence range: <=2. The reference range was not used to int erpret this result as normal/abnormal . [facility] [id number] 16:03:00 Test Item Value Reference Range Interpretation Comments UA Bacteria (test code = None Seen (05/30/16 UA Bacteria) 11:03 AM) [facility] [id number] 15:14:00 Test Item Value Reference Range Interpretation Comments Lipase Lvl (test code = Lipase Lvl) 201 73-393 [facility] Dis[id number] 15:14:00 Test Item Value Reference Range Interpretation Comments AGAP (test code = AGAP) 9.2 10.0-20.0 [facility] DistrictQcipdqnPXEQQJOHZXBJ5357-08-73 15:14:00 Test Item Value Reference Range Interpretation Comments B/C Ratio (test code = B/C Ratio) 20 6-25 [facility]WewkicqPDNPIXFKLOXT1569-76-61 15:14:00 Test Item Value Reference Range Interpretation Comments Globulin (test code = Globulin) 3.8 2.7-4.2 [facility] [id number] 15:14:00 Test Item Value Reference Range Interpretation Comments A/G Ratio (test code = A/G Ratio) 0.9 0.7-1.6 [facility] Dis[id number] 15:14:00 Test Item Value Reference Range Interpretation Comments eGFR (test code = eGFR) 49 [facility] DistrictQbruardKFNPCWLTJXAB0706-39-69 15:14:00 Test Item Value Reference Range Interpretation Comments Albumin Lvl (test code = Albumin Lvl) 3.6 3.5-5.0 [facility] Dis[id number] 15:14:00 Test Item Value Reference Range Interpretation Comments ALT (test code = ALT) 20 See_Comment [Auto mated message] The system which ge nerated this result transmit stuart reference range : <=65. The reference range was not used to interpr et this result as cherry l/abnormal. [facility][id number] 15:14:00 Test Item Value Reference Range Interpretation Comments Alk Phos (test code = Alk Phos) 37 39-136 [facility] Hospital[id number] 15:14:00 Test Item Value Reference Range Interpretation Comments AST (test code = AST) 14 See_Comment [Auto mated message] The system which ge nerated this result transmit stuart reference range : <=37. The reference range was not used to interpr et this result as cherry l/abnormal. [facility] Hos[id number] 15:14:00 Test Item Value Reference Range Interpretation Comments Bili Total (test code = Bili Total) 0.3 0.2-1.3 [facility] Hospi[id number] 15:14:00 Test Item Value Reference Range Interpretation Comments Sodium Lvl (test code = Sodium Lvl) 143 135-145 [facility] Hospital[id number] 15:14:00 Test Item Value Reference Range Interpretation Comments Creatinine Lvl (test code = Creatinine 1.42 0.50-1.40 Lvl) [facility] HospitalGhnpzosXVYBXCQHMUDX1906-20-27 15:14:00 Test Item Value Reference Range Interpretation Comments Potassium Lvl (test code = Potassium 4.2 3.5-5.1 Lvl) [facility] Hospi[id number] 15:14:00 Test Item Value Reference Range Interpretation Comments Chloride Lvl (test code = Chloride Lvl) 103 95-109 [facility] HospitalUhvotsdBHFFYNKXQWNJ8976-90-71 15:14:00 Test Item Value Reference Range Interpretation Comments Calcium Lvl (test code = Calcium Lvl) 8.9 8.5-10.5 [facility] HospitalKnxedjrMWWGFMIINGTZ3030-16-18 15:14:00 Test Item Value Reference Range Interpretation Comments CO2 (test code = CO2) 35 24-32 [facility] Hospital[id number] 15:14:00 Test Item Value Reference Range Interpretation Comments Total Protein (test code = Total 7.4 6.4-8.4 Protein) [facility] HospitalEenwqcoOOKXOKXOFIJS5992-81-42 15:14:00 Test Item Value Reference Range Interpretation Comments BUN (test code = BUN) 28 7-22 [facility] DistrictJassvdfWTUBFWBNDNJJ7505-25-64 15:14:00 Test Item Value Reference Range Interpretation Comments Glucose Lvl (test code = Glucose Lvl) 141 70-99 [facility] HospitalAttyynzUVSZCYITWH7956-44-75 15:14:00 Test Item Value Reference Range Interpretation Comments Basophils # (test code 0.1 See_Comment [Aut omated message] The = Basophils #) system which generated this result tra nsmitted reference range : <=0.2. The reference r jose alfredo was not used to int erpret this result as normal/abnormal . [facility] HospitalWffangvBSRDVMXIIK5092-93-50 15:14:00 Test Item Value Reference Range Interpretation Comments Lymphocytes # (test code = Lymphocytes 1.3 1.0-5.5 #) [facility] HospitalJclklwsVJFCQUZVLT4446-04-16 15:14:00 Test Item Value Reference Range Interpretation Comments Monocytes # (test code 1.1 See_Comment [Aut omated message] The = Monocytes #) system which generated this result tra nsmitted reference range : <=0.8. The reference r jose alfredo was not used to int erpret this result as normal/abnormal . [facility] HospitalCkwyjayXXTAHDERIT8112-18-45 15:14:00 Test Item Value Reference Range Interpretation Comments Eosinophils # (test code 0.1 See_Comment [A utomated message] The = Eosinophils #) system whic h generated this result tra nsmitted reference range : <=0.5. The reference r jose alfredo was not used to int erpret this result as normal/abnormal . [facility] HospitalZukohnsHMOBXSDDSC4309-05-74 15:14:00 Test Item Value Reference Range Interpretation Comments Segs-Bands # (test code = Segs-Bands #) 4.4 1.5-8.1 [facility] HospitalFhlxyttOVNHXRFAGZ3020-25-23 15:14:00 Test Item Value Reference Range Interpretation Comments Basophils (test code = 0.9 See_Comment [Aut omated message] The Basophils) system which ge nerated this result tra nsmitted reference range : <=1.0. The reference r jose alfredo was not used to int erpret this result as normal/abnormal . [facility] HospitalDafgubjGEMJKLSJMX5283-75-16 15:14:00 Test Item Value Reference Range Interpretation Comments Monocytes (test code = Monocytes) 15.3 2.0-12.0 [facility] HospitalGpxwqezYXUHFQZXOR6336-97-97 15:14:00 Test Item Value Reference Range Interpretation Comments Eosinophils (test code = 2.1 See_Comment [A utomated message] The Eosinophils) system which ge nerated this result tra nsmitted reference range : <=4.0. The reference r jose alfredo was not used to int erpret this result as normal/abnormal . [facility] HospitalEiqlcokMTMSYUSCGP2588-75-97 15:14:00 Test Item Value Reference Range Interpretation Comments Lymphocytes (test code = Lymphocytes) 18.2 20.0-40.0 [facility] HospitalAtxqnuzAYLEEPOUWS1193-25-32 15:14:00 Test Item Value Reference Range Interpretation Comments Segs (test code = Segs) 63.5 45.0-75.0 [facility] HospitalTvcgokeMFRBRDSXVI8829-53-29 15:14:00 Test Item Value Reference Range Interpretation Comments Hct (test code = Hct) 39.9 42.0-54.0 [facility] HospitalLwkeqyzDHJMHENHNQ6056-97-75 15:14:00 Test Item Value Reference Range Interpretation Comments MCH (test code = MCH) 30.6 pg 27.0-31.0 [facility] HospitalBqzqaslMXHRRYQVDW1649-63-70 15:14:00 Test Item Value Reference Range Interpretation Comments MCV (test code = MCV) 91.2 80.0-94.0 [facility] HospitalFlmehnkOHJIJNJQPQ7937-20-83 15:14:00 Test Item Value Reference Range Interpretation Comments Hgb (test code = Hgb) 13.4 14.0-18.0 [facility] HospitalZqqihfiLIGPGMAKVM9812-14-49 15:14:00 Test Item Value Reference Range Interpretation Comments RBC (test code = RBC) 4.37 4.70-6.10 [facility] HospitalLasozowXCZQHVVHAP3450-16-04 15:14:00 Test Item Value Reference Range Interpretation Comments WBC (test code = WBC) 6.9 3.7-10.4 [facility] HospitalFsnewidREUVZKTEOT2159-59-26 15:14:00 Test Item Value Reference Range Interpretation Comments Platelet (test code = Platelet) 174 133-450 [facility] HospitalCdmoqdqFLBCGTEYAW1777-98-33 15:14:00 Test Item Value Reference Range Interpretation Comments MPV (test code = MPV) 10.3 7.4-10.4 [facility] HospitalHrftcbcYFLIAXUKFP0486-31-23 15:14:00 Test Item Value Reference Range Interpretation Comments MCHC (test code = MCHC) 33.6 32.0-36.0 [facility] DistrictLjgfoduRHKITFLEGO6699-34-53 15:14:00 Test Item Value Reference Range Interpretation Comments RDW (test code = RDW) 13.8 11.5-14.5 [facility]CARD[facility] BJOTQIG7075-53-51 15:14:00 Test Item Value Reference Range Interpretation Comments Troponin-I (test code no gt See_Comment [Auto mated message] The = Troponin-I) system which g enerated this result transmit stuart reference range : <=0.40. The reference r jose alfredo was not used to interpr et this result as cherry l/abnormal. [facility] DistrictannCARDIAC MKDMTGV3463-64-20 15:14:00 Test Item Value Reference Range Interpretation Comments BNP (test code = BNP) 32 [facility] CenterCARAC JBGIMVZ7398-37-25 15:14:00 Test Item Value Reference Range Interpretation Comments Total CK (test code = Total CK) 64 12-191 [facility] DistrictannCHEM YUWDM9974-30-87 15:14:00 Test Item Value Reference Range Interpretation Comments Lipase Lvl (test code = Lipase Lvl) 201 73-393 [facility] DistrictIcvohotYUOEHIKJKTJL3263-48-96 15:14:00 Test Item Value Reference Range Interpretation Comments AGAP (test code = AGAP) 9.2 10.0-20.0 [facility] DistrictMnqfpgpEOBYFPCJWNRE6641-90-11 15:14:00 Test Item Value Reference Range Interpretation Comments B/C Ratio (test code = B/C Ratio) 20 6-25 [facility] DistrictKvwnxrvWMLOLRXLVUYP7244-26-00 15:14:00 Test Item Value Reference Range Interpretation Comments Globulin (test code = Globulin) 3.8 2.7-4.2 [facility] DistrictErvozqcQTJQVNEUEZJK4928-08-92 15:14:00 Test Item Value Reference Range Interpretation Comments A/G Ratio (test code = A/G Ratio) 0.9 0.7-1.6 [facility] DistrictScdqsgrJWBOULCLCQVB3878-53-77 15:14:00 Test Item Value Reference Range Interpretation Comments eGFR (test code = eGFR) 49 [facility] DistrictTkyddnqFWVEMHHYJCEE8917-87-13 15:14:00 Test Item Value Reference Range Interpretation Comments Albumin Lvl (test code = Albumin Lvl) 3.6 3.5-5.0 [facility]IpwwvwgNRPEOYOAOTGF9056-99-41 15:14:00 Test Item Value Reference Range Interpretation Comments ALT (test code = ALT) 20 See_Comment [Auto mated message] The system which ge nerated this result transmit stuart reference range : <=65. The reference range was not used to interpr et this result as cherry l/abnormal. [facility] HospitalOmhcntnEJALPRDVMMEJ2301-42-78 15:14:00 Test Item Value Reference Range Interpretation Comments Alk Phos (test code = Alk Phos) 37 39-136 [facility] HospitalTxsppsoLBVHSPAHXRRB4843-30-22 15:14:00 Test Item Value Reference Range Interpretation Comments AST (test code = AST) 14 See_Comment [Auto mated message] The system which ge nerated this result transmit stuart reference range : <=37. The reference range was not used to interpr et this result as cherry l/abnormal. [facility] HospitalYgahkukTHTAPOJVFERK0302-51-37 15:14:00 Test Item Value Reference Range Interpretation Comments Bili Total (test code = Bili Total) 0.3 0.2-1.3 [facility] HospitalJrgqygqQDYXCHZESWTK4887-23-66 15:14:00 Test Item Value Reference Range Interpretation Comments Sodium Lvl (test code = Sodium Lvl) 143 135-145 [facility] HospitalUzoyfsaEPIEZSPYISRB5639-45-80 15:14:00 Test Item Value Reference Range Interpretation Comments Creatinine Lvl (test code = Creatinine 1.42 0.50-1.40 Lvl) [facility] HospitalVdwhenpVJOHJSNSOHZE2629-85-46 15:14:00 Test Item Value Reference Range Interpretation Comments Potassium Lvl (test code = Potassium 4.2 3.5-5.1 Lvl) [facility] HospitalFpictliXCNDVFGCKAHI1297-29-17 15:14:00 Test Item Value Reference Range Interpretation Comments Chloride Lvl (test code = Chloride Lvl) 103 95-109 [facility] HospitalUgancvdAYMBONHVLTVD2051-13-70 15:14:00 Test Item Value Reference Range Interpretation Comments Calcium Lvl (test code = Calcium Lvl) 8.9 8.5-10.5 [facility] HospitalSvqtnwaONYDSNXXGGPV6090-54-06 15:14:00 Test Item Value Reference Range Interpretation Comments CO2 (test code = CO2) 35 24-32 [facility] HospitalWvahiguXSKVYUYQGYFR7371-04-78 15:14:00 Test Item Value Reference Range Interpretation Comments Total Protein (test code = Total 7.4 6.4-8.4 Protein) [facility] HospitalWrqyqynHELFTUQCSUHZ0389-46-22 15:14:00 Test Item Value Reference Range Interpretation Comments BUN (test code = BUN) 28 7-22 [facility] HospitalVyvktmbTNIGUTXFMQOV2192-45-29 15:14:00 Test Item Value Reference Range Interpretation Comments Glucose Lvl (test code = Glucose Lvl) 141 70-99 [facility] HospitalDktxfldIDXVNCRNSU2535-98-18 15:14:00 Test Item Value Reference Range Interpretation Comments Basophils # (test code 0.1 See_Comment [Aut omated message] The = Basophils #) system which generated this result tra nsmitted reference range : <=0.2. The reference r jose alfredo was not used to int erpret this result as normal/abnormal . [facility] HospitalBqgtxuqZXJZLLMDFE4616-21-43 15:14:00 Test Item Value Reference Range Interpretation Comments Lymphocytes # (test code = Lymphocytes 1.3 1.0-5.5 #) [facility] HospitalUgoczbeYMCPUXPLAG0848-01-63 15:14:00 Test Item Value Reference Range Interpretation Comments Monocytes # (test code 1.1 See_Comment [Aut omated message] The = Monocytes #) system which generated this result tra nsmitted reference range : <=0.8. The reference r jose alfredo was not used to int erpret this result as normal/abnormal . [facility] [facility]VGVGFDKOM8748-13-98 15:14:00 Test Item Value Reference Range Interpretation Comments Eosinophils # (test code 0.1 See_Comment [A utomated message] The = Eosinophils #) system whic h generated this result tra nsmitted reference range : <=0.5. The reference r jose alfredo was not used to int erpret this result as normal/abnormal . [facility] HospitalAlvqrcgJFWLWNPYAK4966-51-46 15:14:00 Test Item Value Reference Range Interpretation Comments Segs-Bands # (test code = Segs-Bands #) 4.4 1.5-8.1 [facility] HospitalAlnaonoBKEQVTBUPH0614-01-32 15:14:00 Test Item Value Reference Range Interpretation Comments Basophils (test code = 0.9 See_Comment [Aut omated message] The Basophils) system which ge nerated this result tra nsmitted reference range : <=1.0. The reference r jose alfredo was not used to int erpret this result as normal/abnormal . [facility] HospitalTlqbjvzYLTPWFNBVU0003-29-35 15:14:00 Test Item Value Reference Range Interpretation Comments Monocytes (test code = Monocytes) 15.3 2.0-12.0 [facility] HospitalOgqegmnVNDTJUMKVD8642-59-11 15:14:00 Test Item Value Reference Range Interpretation Comments Eosinophils (test code = 2.1 See_Comment [A utomated message] The Eosinophils) system which ge nerated this result tra nsmitted reference range : <=4.0. The reference r jsoe alfredo was not used to int erpret this result as normal/abnormal . [facility] HospitalOggiwxnSWMDJDHIPJ6791-27-28 15:14:00 Test Item Value Reference Range Interpretation Comments Lymphocytes (test code = Lymphocytes) 18.2 20.0-40.0 [facility] HospitalWgfykqcVAZZFTAOOL6167-13-08 15:14:00 Test Item Value Reference Range Interpretation Comments Segs (test code = Segs) 63.5 45.0-75.0 [facility] HospitalBakrcqjGOWXHMLUTX1927-50-07 15:14:00 Test Item Value Reference Range Interpretation Comments Hct (test code = Hct) 39.9 42.0-54.0 [facility] HospitalSnwqkhjUIXCTWRJPZ9598-53-17 15:14:00 Test Item Value Reference Range Interpretation Comments MCH (test code = MCH) 30.6 pg 27.0-31.0 [facility] HospitalZgqcnpfADQKOBDOIE7757-21-71 15:14:00 Test Item Value Reference Range Interpretation Comments MCV (test code = MCV) 91.2 80.0-94.0 [facility] HospitalSthzdddBAMVEOGUUG8651-50-21 15:14:00 Test Item Value Reference Range Interpretation Comments Hgb (test code = Hgb) 13.4 14.0-18.0 [facility] HospitalPtjoeblBEDUICZTDB7901-96-55 15:14:00 Test Item Value Reference Range Interpretation Comments RBC (test code = RBC) 4.37 4.70-6.10 [facility] HospitalOvhhfqhLTNODVCKDC1974-64-11 15:14:00 Test Item Value Reference Range Interpretation Comments WBC (test code = WBC) 6.9 3.7-10.4 [facility] HospitalZbridsoAZPVKRLIIA4968-07-07 15:14:00 Test Item Value Reference Range Interpretation Comments Platelet (test code = Platelet) 174 133-450 [facility] DistrictCotjtnxCENHSPUQOZ4977-46-94 15:14:00 Test Item Value Reference Range Interpretation Comments MPV (test code = MPV) 10.3 7.4-10.4 [facility] DistrictPfnifxqVQVHWFMCFK1695-90-12 15:14:00 Test Item Value Reference Range Interpretation Comments MCHC (test code = MCHC) 33.6 32.0-36.0 [facility] DistrictBnbfepmSFFPFOYKYE4707-00-05 15:14:00 Test Item Value Reference Range Interpretation Comments RDW (test code = RDW) 13.8 11.5-14.5 [facility] DistrictannCARDIAC MYIUMEP5111-52-81 15:14:00 Test Item Value Reference Range Interpretation Comments Troponin-I (test code no gt See_Comment [Auto mated message] The = Troponin-I) system which g enerated this result transmit stuart reference range : <=0.40. The reference r jose alfredo was not used to interpr et this result as cherry l/abnormal. [facility] DistrictannCARDIAC ENKCLLS0295-02-44 15:14:00 Test Item Value Reference Range Interpretation Comments BNP (test code = BNP) 32 [facility] DistrictannCARDIAC OGHQWQH1676-05-51 15:14:00 Test Item Value Reference Range Interpretation Comments Total CK (test code = Total CK) 64 12-191 [facility] DistrictannCHEM BSDZV4727-58-34 15:14:00 Test Item Value Reference Range Interpretation Comments Lipase Lvl (test code = Lipase Lvl) 201 73-393 [facility] DistrictWcjugjnKRNXMJXOGSER9653-74-10 15:14:00 Test Item Value Reference Range Interpretation Comments AGAP (test code = AGAP) 9.2 10.0-20.0 [facility] DistrictKnbictuRPIGCAFOMAHZ7978-90-85 15:14:00 Test Item Value Reference Range Interpretation Comments B/C Ratio (test code = B/C Ratio) 20 6-25 [facility] DistrictFjdqsruDISLZKGTBHXI5203-12-84 15:14:00 Test Item Value Reference Range Interpretation Comments Globulin (test code = Globulin) 3.8 2.7-4.2 [facility] DistrictZgvykqzKISLHULMNVHH7304-73-91 15:14:00 Test Item Value Reference Range Interpretation Comments A/G Ratio (test code = A/G Ratio) 0.9 0.7-1.6 [facility]ZycmnovULXRTWESWEHG2970-33-63 15:14:00 Test Item Value Reference Range Interpretation Comments eGFR (test code = eGFR) 49 [facility] HospitalXusozcjKMINODFAXAAR1028-74-86 15:14:00 Test Item Value Reference Range Interpretation Comments Albumin Lvl (test code = Albumin Lvl) 3.6 3.5-5.0 [facility] HospitalLoctxvbEAFJNGEMMFYZ3636-79-09 15:14:00 Test Item Value Reference Range Interpretation Comments ALT (test code = ALT) 20 See_Comment [Auto mated message] The system which ge nerated this result transmit stuart reference range : <=65. The reference range was not used to interpr et this result as cherry l/abnormal. [facility] HospitalLcctyscNDQNHVWNKJPT9388-76-38 15:14:00 Test Item Value Reference Range Interpretation Comments Alk Phos (test code = Alk Phos) 37 39-136 [facility] HospitalZkpdknwTOJUGWKETNNW8281-26-07 15:14:00 Test Item Value Reference Range Interpretation Comments AST (test code = AST) 14 See_Comment [Auto mated message] The system which ge nerated this result transmit stuart reference range : <=37. The reference range was not used to interpr et this result as cherry l/abnormal. [facility] HospitalBvhyhnsGCCEODCENVOG7751-40-28 15:14:00 Test Item Value Reference Range Interpretation Comments Bili Total (test code = Bili Total) 0.3 0.2-1.3 [facility] HospitalPvonupmBVBUPAYVWQTB6443-05-16 15:14:00 Test Item Value Reference Range Interpretation Comments Sodium Lvl (test code = Sodium Lvl) 143 135-145 [facility] HospitalSqrtusmOAPNOTWISCYZ0622-02-17 15:14:00 Test Item Value Reference Range Interpretation Comments Creatinine Lvl (test code = Creatinine 1.42 0.50-1.40 Lvl) [facility] HospitalXnbvlgzUVTAMUHKPPNF7374-04-81 15:14:00 Test Item Value Reference Range Interpretation Comments Potassium Lvl (test code = Potassium 4.2 3.5-5.1 Lvl) [facility] HospitalGyfiimuSSNIKZRHWDUZ0708-05-35 15:14:00 Test Item Value Reference Range Interpretation Comments Chloride Lvl (test code = Chloride Lvl) 103 95-109 [facility] HospitalVzxipwwZWXKMTYDUOUL6944-06-87 15:14:00 Test Item Value Reference Range Interpretation Comments Calcium Lvl (test code = Calcium Lvl) 8.9 8.5-10.5 [facility] HospitalVtkztqdXUKKAJZYNNAI3600-78-43 15:14:00 Test Item Value Reference Range Interpretation Comments CO2 (test code = CO2) 35 24-32 [facility] HospitalEkmerokKCMKLUEPRYDA9099-81-19 15:14:00 Test Item Value Reference Range Interpretation Comments Total Protein (test code = Total 7.4 6.4-8.4 Protein) [facility] HospitalBncbnoxGEITDYJVFWWD7089-05-40 15:14:00 Test Item Value Reference Range Interpretation Comments BUN (test code = BUN) 28 7-22 [facility] HospitalWvgtevnJYROUSBLZUBB1563-68-30 15:14:00 Test Item Value Reference Range Interpretation Comments Glucose Lvl (test code = Glucose Lvl) 141 70-99 [facility] HospitalObaewhgWZSNMHHSWA6088-71-28 15:14:00 Test Item Value Reference Range Interpretation Comments Basophils # (test code 0.1 See_Comment [Aut omated message] The = Basophils #) system which generated this result tra nsmitted reference range : <=0.2. The reference r jose alfredo was not used to int erpret this result as normal/abnormal . [facility] HospitalLtbkvsyNJRNHBOBJW3298-23-26 15:14:00 Test Item Value Reference Range Interpretation Comments Lymphocytes # (test code = Lymphocytes 1.3 1.0-5.5 #) [facility] HospitalIqoxrryATSWBXOULH4524-98-00 15:14:00 Test Item Value Reference Range Interpretation Comments Monocytes # (test code 1.1 See_Comment [Aut omated message] The = Monocytes #) system which generated this result tra nsmitted reference range : <=0.8. The reference r jose alfredo was not used to int erpret this result as normal/abnormal . [facility] HospitalKbpwsxiKACDXTYAMU5379-87-39 15:14:00 Test Item Value Reference Range Interpretation Comments Eosinophils # (test code 0.1 See_Comment [A utomated message] The = Eosinophils #) system whic h generated this result tra nsmitted reference range : <=0.5. The reference r jose alfredo was not used to int erpret this result as normal/abnormal . [facility] HospitalKckqtmyIEFXTWWSOP3085-98-36 15:14:00 Test Item Value Reference Range Interpretation Comments Segs-Bands # (test code = Segs-Bands #) 4.4 1.5-8.1 [facility] HospitalTdzloooPRFYHYAEMZ3323-23-27 15:14:00 Test Item Value Reference Range Interpretation Comments Basophils (test code = 0.9 See_Comment [Aut omated message] The Basophils) system which ge nerated this result tra nsmitted reference range : <=1.0. The reference r jose alfredo was not used to int erpret this result as normal/abnormal . [facility] HospitalAzfetniRAGQVFFUER6922-52-11 15:14:00 Test Item Value Reference Range Interpretation Comments Monocytes (test code = Monocytes) 15.3 2.0-12.0 [facility] HospitalVxcyipqOUGYDEICMV9884-74-68 15:14:00 Test Item Value Reference Range Interpretation Comments Eosinophils (test code = 2.1 See_Comment [A utomated message] The Eosinophils) system which ge nerated this result tra nsmitted reference range : <=4.0. The reference r jose alfredo was not used to int erpret this result as normal/abnormal . [facility] HospitalWtyrpjoRTKDMCDRYN5537-98-86 15:14:00 Test Item Value Reference Range Interpretation Comments Lymphocytes (test code = Lymphocytes) 18.2 20.0-40.0 [facility] HospitalOnuogqyFHUZIGDSWF8681-77-57 15:14:00 Test Item Value Reference Range Interpretation Comments Segs (test code = Segs) 63.5 45.0-75.0 [facility] HospitalAmoewesTJDJKXVABF7140-11-04 15:14:00 Test Item Value Reference Range Interpretation Comments Hct (test code = Hct) 39.9 42.0-54.0 [facility] HospitalPqctnmgNNXCURICWI4180-94-87 15:14:00 Test Item Value Reference Range Interpretation Comments MCH (test code = MCH) 30.6 pg 27.0-31.0 [facility] HospitalUbeasziGDTZBLXSMI4422-03-09 15:14:00 Test Item Value Reference Range Interpretation Comments MCV (test code = MCV) 91.2 80.0-94.0 [facility] HospitalJfogczhZVSAMXOFSN6116-82-81 15:14:00 Test Item Value Reference Range Interpretation Comments Hgb (test code = Hgb) 13.4 14.0-18.0 [facility] HospitalJtuwlvdTPTFNNEOXR7181-94-61 15:14:00 Test Item Value Reference Range Interpretation Comments RBC (test code = RBC) 4.37 4.70-6.10 [facility] DistrictGvcgofrBHMYHZDOFO3968-18-16 15:14:00 Test Item Value Reference Range Interpretation Comments WBC (test code = WBC) 6.9 3.7-10.4 [facility] DistrictKivobswLOCAQUSQUT5646-52-68 15:14:00 Test Item Value Reference Range Interpretation Comments Platelet (test code = Platelet) 174 133-450 [facility] DistrictNcpznrfACLDNNEFIW8363-60-62 15:14:00 Test Item Value Reference Range Interpretation Comments MPV (test code = MPV) 10.3 7.4-10.4 [facility] DistrictCnkmkwfMAZFFIQFMV7438-28-50 15:14:00 Test Item Value Reference Range Interpretation Comments MCHC (test code = MCHC) 33.6 32.0-36.0 [facility] DistrictJkpbqrqEXTHIRUYVO2135-10-40 15:14:00 Test Item Value Reference Range Interpretation Comments RDW (test code = RDW) 13.8 11.5-14.5 [facility] DistrictHarvest AutomationCARMusical SneakersAC IEGWALF9428-35-96 15:14:00 Test Item Value Reference Range Interpretation Comments Troponin-I (test code no gt See_Comment [Auto mated message] The = Troponin-I) system which g enerated this result transmit stuart reference range : <=0.40. The reference r jose alfredo was not used to interpr et this result as cherry l/abnormal. [facility] DistrictHarvest AutomationCARMusical SneakersAC HFKLKEU6621-03-74 15:14:00 Test Item Value Reference Range Interpretation Comments BNP (test code = BNP) 32 [facility] DistrictflaregamesAC MCZKFPI8574-54-89 15:14:00 Test Item Value Reference Range Interpretation Comments Total CK (test code = Total CK) 64 12-191 [facility] DistrictHarvest AutomationCHEM UUKEY6376-61-75 10:00:00 Test Item Value Reference Range Interpretation Comments Magnesium Lvl (test code = Magnesium 1.6 1.8-2.4 Lvl) [facility] DistrictUslejzsDRBSRBRUSSUO2247-57-87 10:00:00 Test Item Value Reference Range Interpretation Comments AGAP (test code = AGAP) 8.5 10.0-20.0 [facility]YtkdkwyLDRTLSVEBJNE7499-50-69 10:00:00 Test Item Value Reference Range Interpretation Comments eGFR (test code = eGFR) 86 [facility] HospitalCnueathNPUCWSCFRBJN3897-24-66 10:00:00 Test Item Value Reference Range Interpretation Comments Sodium Lvl (test code = Sodium Lvl) 137 135-145 [facility] HospitalPvascvbQDJVTDRFHRAM8028-72-36 10:00:00 Test Item Value Reference Range Interpretation Comments Potassium Lvl (test code = Potassium 3.5 3.5-5.1 Lvl) [facility] HospitalUrjwdldZOGHYBMDEQAS2108-85-29 10:00:00 Test Item Value Reference Range Interpretation Comments Calcium Lvl (test code = Calcium Lvl) 8.4 8.5-10.5 [facility] HospitalEvouhlhDXHWDJKTTWQK5399-18-08 10:00:00 Test Item Value Reference Range Interpretation Comments CO2 (test code = CO2) 30 24-32 [facility] HospitalKrnsdrmLKMZCIDJYUWI6972-49-10 10:00:00 Test Item Value Reference Range Interpretation Comments Chloride Lvl (test code = Chloride Lvl) 102 95-109 [facility] HospitalMykgdeqQMPOOORPAZFZ0031-97-72 10:00:00 Test Item Value Reference Range Interpretation Comments Creatinine Lvl (test code = Creatinine 0.9 0.5-1.4 Lvl) [facility] HospitalXdoqutyIKFUQIKDHTPJ6233-13-01 10:00:00 Test Item Value Reference Range Interpretation Comments Glucose Lvl (test code = Glucose Lvl) 127 70-99 [facility] HospitalIgofpzcZSGTAVNZAQFH7776-45-23 10:00:00 Test Item Value Reference Range Interpretation Comments BUN (test code = BUN) 9 7-22 [facility] HospitalDswmqxiEOXKCVPQKV8488-94-26 10:00:00 Test Item Value Reference Range Interpretation Comments Basophils # (test code 0.1 See_Comment [Aut omated message] The = Basophils #) system which generated this result tra nsmitted reference range : <=0.2. The reference r jose alfredo was not used to int erpret this result as normal/abnormal . [facility] HospitalJlacmrxFRNEXSCREL9925-40-98 10:00:00 Test Item Value Reference Range Interpretation Comments Eosinophils # (test code 0.1 See_Comment [A utomated message] The = Eosinophils #) system whic h generated this result tra nsmitted reference range : <=0.5. The reference r jose alfredo was not used to int erpret this result as normal/abnormal . [facility] HospitalBrtnlvlDUYDOTMBMK0000-80-83 10:00:00 Test Item Value Reference Range Interpretation Comments Monocytes # (test code 0.9 See_Comment [Aut omated message] The = Monocytes #) system which generated this result tra nsmitted reference range : <=0.8. The reference r jose alfredo was not used to int erpret this result as normal/abnormal . [facility] HospitalYfxlqnhCGBFLXQKBW3877-97-56 10:00:00 Test Item Value Reference Range Interpretation Comments Lymphocytes # (test code = Lymphocytes 2.0 1.0-5.5 #) [facility] HospitalVfckxyjQMVGREQUSN5873-67-22 10:00:00 Test Item Value Reference Range Interpretation Comments Segs (test code = Segs) 59.5 45.0-75.0 [facility] HospitalJcnlkozZHJUEOHDNW3612-93-78 10:00:00 Test Item Value Reference Range Interpretation Comments Lymphocytes (test code = Lymphocytes) 25.6 20.0-40.0 [facility] HospitalMkteomuHCJBBMPCIA7545-01-49 10:00:00 Test Item Value Reference Range Interpretation Comments Basophils (test code = 1.6 See_Comment [Aut omated message] The Basophils) system which ge nerated this result tra nsmitted reference range : <=1.0. The reference r jose alfredo was not used to int erpret this result as normal/abnormal . [facility] HospitalWrvcgvrRLMTNLWYPF6497-44-89 10:00:00 Test Item Value Reference Range Interpretation Comments Eosinophils (test code = 1.2 See_Comment [A utomated message] The Eosinophils) system which ge nerated this result tra nsmitted reference range : <=4.0. The reference r jose alfredo was not used to int erpret this result as normal/abnormal . [facility] HospitalOogczatGYGNSUWDDY0403-64-49 10:00:00 Test Item Value Reference Range Interpretation Comments Segs-Bands # (test code = Segs-Bands #) 4.6 1.5-8.1 [facility] HospitalBrpnomnRTOWGEAUCQ0876-16-78 10:00:00 Test Item Value Reference Range Interpretation Comments Monocytes (test code = Monocytes) 12.1 2.0-12.0 [facility] HospitalYjmkgudUTJFIZGUFT0756-52-41 10:00:00 Test Item Value Reference Range Interpretation Comments MCH (test code = MCH) 30.5 pg 27.0-31.0 [facility] HospitalRbcvxvlMWARRRJBWL6486-01-64 10:00:00 Test Item Value Reference Range Interpretation Comments MCHC (test code = MCHC) 34.0 32.0-36.0 [facility]XgcvqwoZYJGSUKOGX0094-87-56 10:00:00 Test Item Value Reference Range Interpretation Comments RDW (test code = RDW) 13.3 11.5-14.5 [facility] HospitalQoeorqgSHFLENFRQT9318-49-81 10:00:00 Test Item Value Reference Range Interpretation Comments Hct (test code = Hct) 31.0 42.0-54.0 [facility] HospitalAdhzgexOFYEOPYZFK6774-84-13 10:00:00 Test Item Value Reference Range Interpretation Comments MCV (test code = MCV) 89.6 80.0-94.0 [facility] HospitalTbnloedEOJWBRSXJW7370-87-56 10:00:00 Test Item Value Reference Range Interpretation Comments MPV (test code = MPV) 9.4 7.4-10.4 [facility] HospitalCrqbjshMANQLGVVES1524-10-39 10:00:00 Test Item Value Reference Range Interpretation Comments Platelet (test code = Platelet) 188 133-450 [facility] HospitalWdffsboDIVCMVKJRZ2735-72-82 10:00:00 Test Item Value Reference Range Interpretation Comments Hgb (test code = Hgb) 10.5 14.0-18.0 [facility] HospitalDwyyainOUSXPIEDJP9556-54-84 10:00:00 Test Item Value Reference Range Interpretation Comments WBC (test code = WBC) 7.7 3.7-10.4 [facility] HospitalCqsepacXHRQCZYRIW9792-66-37 10:00:00 Test Item Value Reference Range Interpretation Comments RBC (test code = RBC) 3.46 4.70-6.10 [facility] XVGFZ0065-47-92 10:00:00 Test Item Value Reference Range Interpretation Comments Magnesium Lvl (test code = Magnesium 1.6 1.8-2.4 Lvl) [facility]KnhjdsbNQTRDERDXCBT1966-76-83 10:00:00 Test Item Value Reference Range Interpretation Comments AGAP (test code = AGAP) 8.5 10.0-20.0 [facility] HospitalEbdsttyWXHPGJPABSFE6063-92-94 10:00:00 Test Item Value Reference Range Interpretation Comments eGFR (test code = eGFR) 86 [facility] HospitalXatkevjQLDZOKDGWBZB0062-26-28 10:00:00 Test Item Value Reference Range Interpretation Comments Sodium Lvl (test code = Sodium Lvl) 137 135-145 [facility] HospitalQmjubpaGLARTIXWEMMF0029-87-51 10:00:00 Test Item Value Reference Range Interpretation Comments Potassium Lvl (test code = Potassium 3.5 3.5-5.1 Lvl) [facility] HospitalVrgtjrkVQLAFCBIONLL9571-68-44 10:00:00 Test Item Value Reference Range Interpretation Comments Calcium Lvl (test code = Calcium Lvl) 8.4 8.5-10.5 [facility] HospitalHmrocfxXASZAJVHHQAT8101-12-76 10:00:00 Test Item Value Reference Range Interpretation Comments CO2 (test code = CO2) 30 24-32 [facility] HospitalSoldsjuUTDEOPGACTLQ7602-25-33 10:00:00 Test Item Value Reference Range Interpretation Comments Chloride Lvl (test code = Chloride Lvl) 102 95-109 [facility] HospitalUxvozggBLRFKYZFGGVN7376-13-44 10:00:00 Test Item Value Reference Range Interpretation Comments Creatinine Lvl (test code = Creatinine 0.9 0.5-1.4 Lvl) [facility] HospitalShlkjcnRXPYFTCVYYME7831-20-51 10:00:00 Test Item Value Reference Range Interpretation Comments Glucose Lvl (test code = Glucose Lvl) 127 70-99 [facility] HospitalTmopkhcZAMRAKBUOEJU6964-29-81 10:00:00 Test Item Value Reference Range Interpretation Comments BUN (test code = BUN) 9 7-22 [facility] HospitalWhgbrjfFVZDAYJGZX4506-89-27 10:00:00 Test Item Value Reference Range Interpretation Comments Basophils # (test code 0.1 See_Comment [Aut omated message] The = Basophils #) system which generated this result tra nsmitted reference range : <=0.2. The reference r jose alfredo was not used to int erpret this result as normal/abnormal . [facility] HospitalFthmskhVPWCWWHJTH4603-76-52 10:00:00 Test Item Value Reference Range Interpretation Comments Eosinophils # (test code 0.1 See_Comment [A utomated message] The = Eosinophils #) system whic h generated this result tra nsmitted reference range : <=0.5. The reference r jose alfredo was not used to int erpret this result as normal/abnormal . [facility] HospitalUzzttuyAKUGHGOTWR2236-55-49 10:00:00 Test Item Value Reference Range Interpretation Comments Monocytes # (test code 0.9 See_Comment [Aut omated message] The = Monocytes #) system which generated this result tra nsmitted reference range : <=0.8. The reference r jose alfredo was not used to int erpret this result as normal/abnormal . [facility] HospitalPvhuwmnBXXEYECVKJ1172-36-59 10:00:00 Test Item Value Reference Range Interpretation Comments Lymphocytes # (test code = Lymphocytes 2.0 1.0-5.5 #) [facility] HospitalBftcqiuZRUIOWKVWE7810-50-41 10:00:00 Test Item Value Reference Range Interpretation Comments Segs (test code = Segs) 59.5 45.0-75.0 [facility] HospitalDcocvzeXCOCKMWIRO4078-97-55 10:00:00 Test Item Value Reference Range Interpretation Comments Lymphocytes (test code = Lymphocytes) 25.6 20.0-40.0 [facility] HospitalKzedmvdHPBXFYEHVP9178-39-40 10:00:00 Test Item Value Reference Range Interpretation Comments Basophils (test code = 1.6 See_Comment [Aut omated message] The Basophils) system which ge nerated this result tra nsmitted reference range : <=1.0. The reference r jose alfredo was not used to int erpret this result as normal/abnormal . [facility] HospitalTdgpptrQRWPONGLKC7002-92-83 10:00:00 Test Item Value Reference Range Interpretation Comments Eosinophils (test code = 1.2 See_Comment [A utomated message] The Eosinophils) system which ge nerated this result tra nsmitted reference range : <=4.0. The reference r jose alfredo was not used to int erpret this result as normal/abnormal . [facility] HospitalVvfdlhdFUJJEIJLTH8369-61-70 10:00:00 Test Item Value Reference Range Interpretation Comments Segs-Bands # (test code = Segs-Bands #) 4.6 1.5-8.1 [facility] HospitalVmazqliIKNMPAHENB6410-33-61 10:00:00 Test Item Value Reference Range Interpretation Comments Monocytes (test code = Monocytes) 12.1 2.0-12.0 [facility] HospitalJasrfmjUGLEETRMXS1036-77-93 10:00:00 Test Item Value Reference Range Interpretation Comments MCH (test code = MCH) 30.5 pg 27.0-31.0 [facility] HospitalYxvzooeAMVSYWGCMD3935-27-64 10:00:00 Test Item Value Reference Range Interpretation Comments MCHC (test code = MCHC) 34.0 32.0-36.0 [facility] HospitalTcudwabCHYGKKDTOT1429-69-16 10:00:00 Test Item Value Reference Range Interpretation Comments RDW (test code = RDW) 13.3 11.5-14.5 [facility]EpdsweiYIYDFVXHKP3113-98-08 10:00:00 Test Item Value Reference Range Interpretation Comments Hct (test code = Hct) 31.0 42.0-54.0 [facility] HospitalMrfxizzBAYQDDTLXI1136-15-25 10:00:00 Test Item Value Reference Range Interpretation Comments MCV (test code = MCV) 89.6 80.0-94.0 [facility] HospitalVtwghwsSVRCWHHREX9464-29-19 10:00:00 Test Item Value Reference Range Interpretation Comments MPV (test code = MPV) 9.4 7.4-10.4 [facility] HospitalUjsnavpZTGKZQODYS1108-70-24 10:00:00 Test Item Value Reference Range Interpretation Comments Platelet (test code = Platelet) 188 133-450 [facility] HospitalQkcfnxjXGLWNVVZLK5863-08-97 10:00:00 Test Item Value Reference Range Interpretation Comments Hgb (test code = Hgb) 10.5 14.0-18.0 [facility] HospitalCbmwfwfGLFPKAWIYN2142-22-81 10:00:00 Test Item Value Reference Range Interpretation Comments WBC (test code = WBC) 7.7 3.7-10.4 [facility] HospitalNqulnsnDZCCWVWLSB0251-22-47 10:00:00 Test Item Value Reference Range Interpretation Comments RBC (test code = RBC) 3.46 4.70-6.10 [facility]2015-06-21 10:00:00 Test Item Value Reference Range Interpretation Comments Magnesium Lvl (test code = Magnesium 1.6 1.8-2.4 Lvl) [facility]GzyfufoQIEEBFTGUYKE4081-21-82 10:00:00 Test Item Value Reference Range Interpretation Comments AGAP (test code = AGAP) 8.5 10.0-20.0 [facility] HospitalLewdnhlVQLJIJUTEFLP5900-37-89 10:00:00 Test Item Value Reference Range Interpretation Comments eGFR (test code = eGFR) 86 [facility] HospitalFyxijkwCPNQDCQGHGMD4265-93-25 10:00:00 Test Item Value Reference Range Interpretation Comments Sodium Lvl (test code = Sodium Lvl) 137 135-145 [facility] HospitalJmyqrflTTNDYGQJQLRS6990-78-24 10:00:00 Test Item Value Reference Range Interpretation Comments Potassium Lvl (test code = Potassium 3.5 3.5-5.1 Lvl) [facility] HospitalBeyfujjITFBARAPUAXL9031-53-11 10:00:00 Test Item Value Reference Range Interpretation Comments Calcium Lvl (test code = Calcium Lvl) 8.4 8.5-10.5 [facility] HospitalUhulyxxUKBWDHVZXDTS3594-82-19 10:00:00 Test Item Value Reference Range Interpretation Comments CO2 (test code = CO2) 30 24-32 [facility] HospitalQikjlgsSUEJDYPAAYWJ1212-64-23 10:00:00 Test Item Value Reference Range Interpretation Comments Chloride Lvl (test code = Chloride Lvl) 102 95-109 [facility] HospitalHxtozhaDWWRGYTQFVBH9289-13-03 10:00:00 Test Item Value Reference Range Interpretation Comments Creatinine Lvl (test code = Creatinine 0.9 0.5-1.4 Lvl) [facility] HospitalDfzjxduZBBMNKQLJBZD0447-94-91 10:00:00 Test Item Value Reference Range Interpretation Comments Glucose Lvl (test code = Glucose Lvl) 127 70-99 [facility] HospitalCluttnuPLTVMJZOSCUU2704-24-99 10:00:00 Test Item Value Reference Range Interpretation Comments BUN (test code = BUN) 9 7-22 [facility] HospitalYlendshSCVNFYQKRH6878-91-76 10:00:00 Test Item Value Reference Range Interpretation Comments Basophils # (test code 0.1 See_Comment [Aut omated message] The = Basophils #) system which generated this result tra nsmitted reference range : <=0.2. The reference r jose alfredo was not used to int erpret this result as normal/abnormal . [facility] HospitalLclqibyGOXNXGJWQL6509-68-51 10:00:00 Test Item Value Reference Range Interpretation Comments Eosinophils # (test code 0.1 See_Comment [A utomated message] The = Eosinophils #) system whic h generated this result tra nsmitted reference range : <=0.5. The reference r jose alfredo was not used to int erpret this result as normal/abnormal . [facility] HospitalPkjgeloGUOUBHSBPW1943-09-87 10:00:00 Test Item Value Reference Range Interpretation Comments Monocytes # (test code 0.9 See_Comment [Aut omated message] The = Monocytes #) system which generated this result tra nsmitted reference range : <=0.8. The reference r jose alfredo was not used to int erpret this result as normal/abnormal . [facility] HospitalDhtbylaNSCLSFSMCG9443-18-41 10:00:00 Test Item Value Reference Range Interpretation Comments Lymphocytes # (test code = Lymphocytes 2.0 1.0-5.5 #) [facility] HospitalYjqrqmlDFAGNIKCHH6821-68-43 10:00:00 Test Item Value Reference Range Interpretation Comments Segs (test code = Segs) 59.5 45.0-75.0 [facility] HospitalMsoikrsESKUXQTVRV1419-47-69 10:00:00 Test Item Value Reference Range Interpretation Comments Lymphocytes (test code = Lymphocytes) 25.6 20.0-40.0 [facility] HospitalAyfxqqtCBRDUKLYGN7276-84-61 10:00:00 Test Item Value Reference Range Interpretation Comments Basophils (test code = 1.6 See_Comment [Aut omated message] The Basophils) system which ge nerated this result tra nsmitted reference range : <=1.0. The reference r jose alfredo was not used to int erpret this result as normal/abnormal . [facility] HospitalOpzfesqJMZENLRJVM4929-37-39 10:00:00 Test Item Value Reference Range Interpretation Comments Eosinophils (test code = 1.2 See_Comment [A utomated message] The Eosinophils) system which ge nerated this result tra nsmitted reference range : <=4.0. The reference r jose alfredo was not used to int erpret this result as normal/abnormal . [facility] HospitalSjueszfEYZLSYNPUA3395-13-27 10:00:00 Test Item Value Reference Range Interpretation Comments Segs-Bands # (test code = Segs-Bands #) 4.6 1.5-8.1 [facility] HospitalZnqpzzvVOFZWFEBMS0550-20-57 10:00:00 Test Item Value Reference Range Interpretation Comments Monocytes (test code = Monocytes) 12.1 2.0-12.0 [facility] HospitalXyrtjvnMPOZAPAFDR0973-39-83 10:00:00 Test Item Value Reference Range Interpretation Comments MCH (test code = MCH) 30.5 pg 27.0-31.0 [facility] HospitalGqgjrrmVEOOZUELSK5675-05-58 10:00:00 Test Item Value Reference Range Interpretation Comments MCHC (test code = MCHC) 34.0 32.0-36.0 [facility] HospitalSikxoinLCVLJMSZYL9285-04-05 10:00:00 Test Item Value Reference Range Interpretation Comments RDW (test code = RDW) 13.3 11.5-14.5 [facility] HospitalSsvhiaeYTTPSTIDQX8482-19-00 10:00:00 Test Item Value Reference Range Interpretation Comments Hct (test code = Hct) 31.0 42.0-54.0 [facility] HospitalOomfadoLFFPKBTJVU5855-38-45 10:00:00 Test Item Value Reference Range Interpretation Comments MCV (test code = MCV) 89.6 80.0-94.0 [facility] HospitalBwmfxxbROAXVMVGUW4768-75-94 10:00:00 Test Item Value Reference Range Interpretation Comments MPV (test code = MPV) 9.4 7.4-10.4 [facility] HospitalStusejoFKQQOOIKOQ4989-52-46 10:00:00 Test Item Value Reference Range Interpretation Comments Platelet (test code = Platelet) 188 133-450 [facility] HospitalUfvqwkdJLOYQPZKBG3806-56-90 10:00:00 Test Item Value Reference Range Interpretation Comments Hgb (test code = Hgb) 10.5 14.0-18.0 [facility] HospitalZpistwdSQDVNMEVUI0529-62-29 10:00:00 Test Item Value Reference Range Interpretation Comments WBC (test code = WBC) 7.7 3.7-10.4 [facility] HospitalHgwipcmTXJPYWDULX2188-60-64 10:00:00 Test Item Value Reference Range Interpretation Comments RBC (test code = RBC) 3.46 4.70-6.10 [facility]2015-06-20 14:44:00 Test Item Value Reference Range Interpretation Comments Lactic Acid Lvl (test code = Lactic 1.4 0.5-2.2 Acid Lvl) [facility]UwploavDWOSMIWYMVNG1731-48-29 14:44:00 Test Item Value Reference Range Interpretation Comments Sodium Lvl (test code = Sodium Lvl) 133 135-145 [facility]2015-06-20 14:44:00 Test Item Value Reference Range Interpretation Comments Lactic Acid Lvl (test code = Lactic 1.4 0.5-2.2 Acid Lvl) [facility] HospitalVnjgmtaRIFAXWJDAUND1366-59-48 14:44:00 Test Item Value Reference Range Interpretation Comments Sodium Lvl (test code = Sodium Lvl) 133 135-145 [facility]2015-06-20 14:44:00 Test Item Value Reference Range Interpretation Comments Lactic Acid Lvl (test code = Lactic 1.4 0.5-2.2 Acid Lvl) [facility] HospitalHcobvavKWBUWRRZGNXO0940-43-38 14:44:00 Test Item Value Reference Range Interpretation Comments Sodium Lvl (test code = Sodium Lvl) 133 135-145 [facility]2015-06-20 09:05:00 Test Item Value Reference Range Interpretation Comments B/C Ratio (test code = B/C Ratio) 11 6-25 [facility]2015-06-20 09:05:00 Test Item Value Reference Range Interpretation Comments A/G Ratio (test code = A/G Ratio) 1.0 0.7-1.6 [facility]2015-06-20 09:05:00 Test Item Value Reference Range Interpretation Comments Globulin (test code = Globulin) 3.3 2.0-4.0 [facility]2015-06-20 09:05:00 Test Item Value Reference Range Interpretation Comments AGAP (test code = AGAP) 9.5 10.0-20.0 [facility]2015-06-20 09:05:00 Test Item Value Reference Range Interpretation Comments eGFR (test code = eGFR) 76 [facility]2015-06-20 09:05:00 Test Item Value Reference Range Interpretation Comments Sodium Lvl (test code = Sodium Lvl) 129 135-145 [facility]2015-06-20 09:05:00 Test Item Value Reference Range Interpretation Comments Bili Total (test code = Bili Total) 0.7 0.2-1.3 [facility]2015-06-20 09:05:00 Test Item Value Reference Range Interpretation Comments AST (test code = AST) 31 See_Comment [Auto mated message] The system which ge nerated this result transmit stuart reference range : <=37. The reference range was not used to interpr et this result as cherry l/abnormal. [facility]2015-06-20 09:05:00 Test Item Value Reference Range Interpretation Comments ALT (test code = ALT) 25 See_Comment [Auto mated message] The system which ge nerated this result transmit stuart reference range : <=65. The reference range was not used to interpr et this result as cherry l/abnormal. [facility]2015-06-20 09:05:00 Test Item Value Reference Range Interpretation Comments Alk Phos (test code = Alk Phos) 32 39-136 [facility]2015-06-20 09:05:00 Test Item Value Reference Range Interpretation Comments Total Protein (test code = Total 6.5 6.4-8.4 Protein) [facility]2015-06-20 09:05:00 Test Item Value Reference Range Interpretation Comments Potassium Lvl (test code = Potassium 3.5 3.5-5.1 Lvl) [facility]2015-06-20 09:05:00 Test Item Value Reference Range Interpretation Comments Albumin Lvl (test code = Albumin Lvl) 3.2 3.5-5.0 [facility]2015-06-20 09:05:00 Test Item Value Reference Range Interpretation Comments CO2 (test code = CO2) -32 [facility]2015-06-20 09:05:00 Test Item Value Reference Range Interpretation Comments Chloride Lvl (test code = Chloride Lvl) 95 95-109 [facility]2015-06-20 09:05:00 Test Item Value Reference Range Interpretation Comments Calcium Lvl (test code = Calcium Lvl) 8.2 8.5-10.5 [facility]2015-06-20 09:05:00 Test Item Value Reference Range Interpretation Comments Glucose Lvl (test code = Glucose Lvl) 147 70-99 [facility]2015-06-20 09:05:00 Test Item Value Reference Range Interpretation Comments Creatinine Lvl (test code = Creatinine 1.0 0.5-1.4 Lvl) [facility]2015-06-20 09:05:00 Test Item Value Reference Range Interpretation Comments BUN (test code = BUN) 11 7-22 [facility]OjetjfzQOTZRYMPZVDX9413-48-46 09:05:00 Test Item Value Reference Range Interpretation Comments AGAP (test code = AGAP) 10.5 10.0-20.0 [facility] HospitalKlghwcqSCNQYXOAVHQC1225-73-98 09:05:00 Test Item Value Reference Range Interpretation Comments Calcium Lvl (test code = Calcium Lvl) 8.4 8.5-10.5 [facility] HospitalSdywejuEQMZTOIKXKTL8472-49-14 09:05:00 Test Item Value Reference Range Interpretation Comments CO2 (test code = CO2) 27 24-32 [facility] HospitalGfehdduBTQBHTGHQROD5642-15-39 09:05:00 Test Item Value Reference Range Interpretation Comments Chloride Lvl (test code = Chloride Lvl) 96 95-109 [facility] HospitalDzncnnyEOICJFDURSBN2552-46-84 09:05:00 Test Item Value Reference Range Interpretation Comments eGFR (test code = eGFR) 76 [facility] HospitalUpdlyqkNRFKGTTCDXPZ0874-23-46 09:05:00 Test Item Value Reference Range Interpretation Comments Potassium Lvl (test code = Potassium 3.5 3.5-5.1 Lvl) [facility] HospitalIxtmxcjKWPNYOXWWLMY4468-04-64 09:05:00 Test Item Value Reference Range Interpretation Comments Sodium Lvl (test code = Sodium Lvl) 130 135-145 [facility] HospitalZlklyjpLYAFUVDFYIRG1182-65-14 09:05:00 Test Item Value Reference Range Interpretation Comments Creatinine Lvl (test code = Creatinine 1.0 0.5-1.4 Lvl) [facility] HospitalFffasnkFBWTAJTUJJOL3080-04-90 09:05:00 Test Item Value Reference Range Interpretation Comments BUN (test code = BUN) 11 7-22 [facility] HospitalEcalwtnAZMWHWPZHTXI5295-72-23 09:05:00 Test Item Value Reference Range Interpretation Comments Glucose Lvl (test code = Glucose Lvl) 145 70-99 [facility] HospitalOccdwdxLGKOZSNYHN5622-98-91 09:05:00 Test Item Value Reference Range Interpretation Comments Lymphocytes (test code = Lymphocytes) 12.7 20.0-40.0 [facility] HospitalNwaaldsRTWSDGSUFM6475-92-12 09:05:00 Test Item Value Reference Range Interpretation Comments Segs (test code = Segs) 74.1 45.0-75.0 [facility] HospitalXwaabntAFJBRCOATV8384-98-95 09:05:00 Test Item Value Reference Range Interpretation Comments Monocytes (test code = Monocytes) 12.6 2.0-12.0 [facility] HospitalUbidbsjHSFJXRWAKG9377-54-30 09:05:00 Test Item Value Reference Range Interpretation Comments Monocytes # (test code 1.6 See_Comment [Aut omated message] The = Monocytes #) system which generated this result tra nsmitted reference range : <=0.8. The reference r jose alfredo was not used to int erpret this result as normal/abnormal . [facility] HospitalAcyxwoiEFOHMDFKSK7639-40-81 09:05:00 Test Item Value Reference Range Interpretation Comments Lymphocytes # (test code = Lymphocytes 1.6 1.0-5.5 #) [facility] HospitalUvddjkxWBXIDGSGOI3244-62-79 09:05:00 Test Item Value Reference Range Interpretation Comments Basophils (test code = 0.2 See_Comment [Aut omated message] The Basophils) system which ge nerated this result tra nsmitted reference range : <=1.0. The reference r jose alfredo was not used to int erpret this result as normal/abnormal . [facility] HospitalMomkeadTTBVZPLTQW8440-56-39 09:05:00 Test Item Value Reference Range Interpretation Comments Eosinophils (test code = 0.4 See_Comment [A utomated message] The Eosinophils) system which ge nerated this result tra nsmitted reference range : <=4.0. The reference r jose alfredo was not used to int erpret this result as normal/abnormal . [facility] HospitalFdscjwiWUHKEEKCQM1506-19-40 09:05:00 Test Item Value Reference Range Interpretation Comments Segs-Bands # (test code = Segs-Bands #) 9.6 1.5-8.1 [facility] HospitalHhrkeagLZEILXMYHQ6309-26-38 09:05:00 Test Item Value Reference Range Interpretation Comments Eosinophils # (test code 0.1 See_Comment [A utomated message] The = Eosinophils #) system whic h generated this result tra nsmitted reference range : <=0.5. The reference r jose alfredo was not used to int erpret this result as normal/abnormal . [facility] HospitalSnqyogeENXBATYDLU2645-15-20 09:05:00 Test Item Value Reference Range Interpretation Comments RBC (test code = RBC) 3.97 4.70-6.10 [facility] HospitalLnxsfjoKWEDKUOACY7407-62-82 09:05:00 Test Item Value Reference Range Interpretation Comments WBC (test code = WBC) 13.0 3.7-10.4 [facility] HospitalTpjcwssQGEUEKRQDE3600-23-41 09:05:00 Test Item Value Reference Range Interpretation Comments MPV (test code = MPV) 9.7 7.4-10.4 [facility] HospitalPewnldxWMFZPZOMBH8651-07-21 09:05:00 Test Item Value Reference Range Interpretation Comments RDW (test code = RDW) 13.1 11.5-14.5 [facility] HospitalIlcrmbvMAYEJCDNWV4847-83-85 09:05:00 Test Item Value Reference Range Interpretation Comments Platelet (test code = Platelet) 202 133-450 [facility] HospitalKoklougNFXFVOCVGT3971-19-17 09:05:00 Test Item Value Reference Range Interpretation Comments Hct (test code = Hct) 34.8 42.0-54.0 [facility] HospitalQwinpdjMEMNAWORRF6201-54-08 09:05:00 Test Item Value Reference Range Interpretation Comments MCV (test code = MCV) 87.8 80.0-94.0 [facility] HospitalWygbekkAHSQABYUOJ8417-45-35 09:05:00 Test Item Value Reference Range Interpretation Comments Hgb (test code = Hgb) 11.9 14.0-18.0 [facility] HospitalJyneekuBMDLBOCYPX9251-92-63 09:05:00 Test Item Value Reference Range Interpretation Comments MCH (test code = MCH) 30.1 pg 27.0-31.0 [facility] HospitalQcbhdysKFHWOJVABR9492-66-92 09:05:00 Test Item Value Reference Range Interpretation Comments MCHC (test code = MCHC) 34.3 32.0-36.0 [facility]2015-06-20 09:05:00 Test Item Value Reference Range Interpretation Comments B/C Ratio (test code = B/C Ratio) 11 6-25 [facility]2015-06-20 09:05:00 Test Item Value Reference Range Interpretation Comments A/G Ratio (test code = A/G Ratio) 1.0 0.7-1.6 [facility]2015-06-20 09:05:00 Test Item Value Reference Range Interpretation Comments Globulin (test code = Globulin) 3.3 2.0-4.0 [facility]2015-06-20 09:05:00 Test Item Value Reference Range Interpretation Comments AGAP (test code = AGAP) 9.5 10.0-20.0 [facility]2015-06-20 09:05:00 Test Item Value Reference Range Interpretation Comments eGFR (test code = eGFR) 76 [facility]2015-06-20 09:05:00 Test Item Value Reference Range Interpretation Comments Sodium Lvl (test code = Sodium Lvl) 129 135-145 [facility]2015-06-20 09:05:00 Test Item Value Reference Range Interpretation Comments Bili Total (test code = Bili Total) 0.7 0.2-1.3 [facility]2015-06-20 09:05:00 Test Item Value Reference Range Interpretation Comments AST (test code = AST) 31 See_Comment [Auto mated message] The system which ge nerated this result transmit stuart reference range : <=37. The reference range was not used to interpr et this result as cherry l/abnormal. [facility] DistrictHarvest AutomationST. LUKE'S HOSPITALCTXQO4066-25-96 09:05:00 Test Item Value Reference Range Interpretation Comments ALT (test code = ALT) 25 See_Comment [Auto mated message] The system which ge nerated this result transmit stuart reference range : <=65. The reference range was not used to interpr et this result as cherry l/abnormal. [facility]2015-06-20 09:05:00 Test Item Value Reference Range Interpretation Comments Alk Phos (test code = Alk Phos) 32 39-136 [facility] DistrictSpace Monkey IUYVH1513-21-72 09:05:00 Test Item Value Reference Range Interpretation Comments Total Protein (test code = Total 6.5 6.4-8.4 Protein) [facility]2015-06-20 09:05:00 Test Item Value Reference Range Interpretation Comments Potassium Lvl (test code = Potassium 3.5 3.5-5.1 Lvl) [facility] DistrictHarvest AutomationST. LUKE'S HOSPITALHLPKM7836-27-40 09:05:00 Test Item Value Reference Range Interpretation Comments Albumin Lvl (test code = Albumin Lvl) 3.2 3.5-5.0 [facility] DistrictSpace Monkey WBNLQ8724-24-21 09:05:00 Test Item Value Reference Range Interpretation Comments CO2 (test code = CO2) 28 24-32 [facility] DistrictHarvest AutomationST. LUKE'S HOSPITALAZHTM0942-15-55 09:05:00 Test Item Value Reference Range Interpretation Comments Chloride Lvl (test code = Chloride Lvl) 95 95-109 [facility] DistrictHarvest AutomationST. LUKE'S HOSPITALLKFIZ7767-12-46 09:05:00 Test Item Value Reference Range Interpretation Comments Calcium Lvl (test code = Calcium Lvl) 8.2 8.5-10.5 [facility] DistrictSpace Monkey [id number] 09:05:00 Test Item Value Reference Range Interpretation Comments Glucose Lvl (test code = Glucose Lvl) 147 70-99 [facility]2015-06-20 09:05:00 Test Item Value Reference Range Interpretation Comments Creatinine Lvl (test code = Creatinine 1.0 0.5-1.4 Lvl) [facility] DistrictHarvest AutomationST. LUKE'S HOSPITALCMDXP5153-71-70 09:05:00 Test Item Value Reference Range Interpretation Comments BUN (test code = BUN) 11 7-22 [facility] HospitalFazlaoeDPGPZILTQZVN4572-60-61 09:05:00 Test Item Value Reference Range Interpretation Comments AGAP (test code = AGAP) 10.5 10.0-20.0 [facility] HospitalVdtdcluORVGSQDNNAPY8403-68-73 09:05:00 Test Item Value Reference Range Interpretation Comments Calcium Lvl (test code = Calcium Lvl) 8.4 8.5-10.5 [facility] HospitalNkgokqcSPSJNYSIMFVV8452-23-56 09:05:00 Test Item Value Reference Range Interpretation Comments CO2 (test code = CO2) 27 24-32 [facility] HospitalSyvdpayUJGGZBLUZCXW7999-36-18 09:05:00 Test Item Value Reference Range Interpretation Comments Chloride Lvl (test code = Chloride Lvl) 96 95-109 [facility] HospitalFlhqtnrPUUKSAPPJGJI7462-85-54 09:05:00 Test Item Value Reference Range Interpretation Comments eGFR (test code = eGFR) 76 [facility] HospitalZzjpvosUKWINYGNOBML2380-04-87 09:05:00 Test Item Value Reference Range Interpretation Comments Potassium Lvl (test code = Potassium 3.5 3.5-5.1 Lvl) [facility] HospitalZvcugakXLTYSLQXAWIG6308-73-36 09:05:00 Test Item Value Reference Range Interpretation Comments Sodium Lvl (test code = Sodium Lvl) 130 135-145 [facility] HospitalOrwwuxaLAAADSCDUMZX6094-90-82 09:05:00 Test Item Value Reference Range Interpretation Comments Creatinine Lvl (test code = Creatinine 1.0 0.5-1.4 Lvl) [facility] HospitalTvemrsaEUSTXPJNDJIW3843-59-35 09:05:00 Test Item Value Reference Range Interpretation Comments BUN (test code = BUN) 11 - [facility] HospitalQmxdvjfUJNDDBOQFHSB4774-36-45 09:05:00 Test Item Value Reference Range Interpretation Comments Glucose Lvl (test code = Glucose Lvl) 145 70-99 [facility] HospitalBvnbygeGVRKPVZZLY4457-93-53 09:05:00 Test Item Value Reference Range Interpretation Comments Lymphocytes (test code = Lymphocytes) 12.7 20.0-40.0 [facility] HospitalJewcvxrLTQDYRLXVX8222-95-29 09:05:00 Test Item Value Reference Range Interpretation Comments Segs (test code = Segs) 74.1 45.0-75.0 [facility] HospitalMqfsxebONAUJPNYGT4028-37-39 09:05:00 Test Item Value Reference Range Interpretation Comments Monocytes (test code = Monocytes) 12.6 2.0-12.0 [facility] HospitalZqnjeddSCBFANFNOX9746-78-36 09:05:00 Test Item Value Reference Range Interpretation Comments Monocytes # (test code 1.6 See_Comment [Aut omated message] The = Monocytes #) system which generated this result tra nsmitted reference range : <=0.8. The reference r jose alfredo was not used to int erpret this result as normal/abnormal . [facility] HospitalNzewrqgGAVMADMPPU0844-63-70 09:05:00 Test Item Value Reference Range Interpretation Comments Lymphocytes # (test code = Lymphocytes 1.6 1.0-5.5 #) [facility] HospitalHzxwpynABUNRTRUSG1627-86-09 09:05:00 Test Item Value Reference Range Interpretation Comments Basophils (test code = 0.2 See_Comment [Aut omated message] The Basophils) system which ge nerated this result tra nsmitted reference range : <=1.0. The reference r jose lafredo was not used to int erpret this result as normal/abnormal . [facility] HospitalVmhianhTBUTPAFEPP2043-15-16 09:05:00 Test Item Value Reference Range Interpretation Comments Eosinophils (test code = 0.4 See_Comment [A utomated message] The Eosinophils) system which ge nerated this result tra nsmitted reference range : <=4.0. The reference r jose alfredo was not used to int erpret this result as normal/abnormal . [facility] HospitalRnsnpnaOXAXNBWNOD9419-17-69 09:05:00 Test Item Value Reference Range Interpretation Comments Segs-Bands # (test code = Segs-Bands #) 9.6 1.5-8.1 [facility] HospitalOvxgazvGIODDBWFMQ4615-49-81 09:05:00 Test Item Value Reference Range Interpretation Comments Eosinophils # (test code 0.1 See_Comment [A utomated message] The = Eosinophils #) system whic h generated this result tra nsmitted reference range : <=0.5. The reference r jose alfredo was not used to int erpret this result as normal/abnormal . [facility] HospitalUbbdsruLNWELWEFQF2635-78-03 09:05:00 Test Item Value Reference Range Interpretation Comments RBC (test code = RBC) 3.97 4.70-6.10 [facility] HospitalYhhklwjGNBNUYRKBQ0173-74-08 09:05:00 Test Item Value Reference Range Interpretation Comments WBC (test code = WBC) 13.0 3.7-10.4 [facility] HospitalPpsnqkwZLUULEBVFR3960-89-78 09:05:00 Test Item Value Reference Range Interpretation Comments MPV (test code = MPV) 9.7 7.4-10.4 [facility] HospitalSiddkvpWAWPELSXJR2247-00-42 09:05:00 Test Item Value Reference Range Interpretation Comments RDW (test code = RDW) 13.1 11.5-14.5 [facility] HospitalUesknvuQIYFYIQHPL4383-81-04 09:05:00 Test Item Value Reference Range Interpretation Comments Platelet (test code = Platelet) 202 133-450 [facility] HospitalOrllfbkEINDSOZAFS9303-63-16 09:05:00 Test Item Value Reference Range Interpretation Comments Hct (test code = Hct) 34.8 42.0-54.0 [facility] HospitalZximofkXKRABFHBWF4735-16-56 09:05:00 Test Item Value Reference Range Interpretation Comments MCV (test code = MCV) 87.8 80.0-94.0 [facility] HospitalQxbgiviAUCOELIJYD1183-60-51 09:05:00 Test Item Value Reference Range Interpretation Comments Hgb (test code = Hgb) 11.9 14.0-18.0 [facility] HospitalKolyotjOOGSRISGIA1148-56-09 09:05:00 Test Item Value Reference Range Interpretation Comments MCH (test code = MCH) 30.1 pg 27.0-31.0 [facility] HospitalDofvubmMIUYTXWZPY3874-60-91 09:05:00 Test Item Value Reference Range Interpretation Comments MCHC (test code = MCHC) 34.3 32.0-36.0 [facility]2015-06-20 09:05:00 Test Item Value Reference Range Interpretation Comments B/C Ratio (test code = B/C Ratio) 11 6-25 [facility] [id number] 09:05:00 Test Item Value Reference Range Interpretation Comments A/G Ratio (test code = A/G Ratio) 1.0 0.7-1.6 [facility]2015-06-20 09:05:00 Test Item Value Reference Range Interpretation Comments Globulin (test code = Globulin) 3.3 2.0-4.0 [facility]2015-06-20 09:05:00 Test Item Value Reference Range Interpretation Comments AGAP (test code = AGAP) 9.5 10.0-20.0 [facility]2015-06-20 09:05:00 Test Item Value Reference Range Interpretation Comments eGFR (test code = eGFR) 76 [facility]2015-06-20 09:05:00 Test Item Value Reference Range Interpretation Comments Sodium Lvl (test code = Sodium Lvl) 129 135-145 [facility]2015-06-20 09:05:00 Test Item Value Reference Range Interpretation Comments Bili Total (test code = Bili Total) 0.7 0.2-1.3 [facility]2015-06-20 09:05:00 Test Item Value Reference Range Interpretation Comments AST (test code = AST) 31 See_Comment [Auto mated message] The system which ge nerated this result transmit stuart reference range : <=37. The reference range was not used to interpr et this result as cherry l/abnormal. [facility]2015-06-20 09:05:00 Test Item Value Reference Range Interpretation Comments ALT (test code = ALT) 25 See_Comment [Auto mated message] The system which ge nerated this result transmit stuart reference range : <=65. The reference range was not used to interpr et this result as cherry l/abnormal. [facility]2015-06-20 09:05:00 Test Item Value Reference Range Interpretation Comments Alk Phos (test code = Alk Phos) 32 39-136 [facility]2015-06-20 09:05:00 Test Item Value Reference Range Interpretation Comments Total Protein (test code = Total 6.5 6.4-8.4 Protein) [facility]2015-06-20 09:05:00 Test Item Value Reference Range Interpretation Comments Potassium Lvl (test code = Potassium 3.5 3.5-5.1 Lvl) [facility]2015-06-20 09:05:00 Test Item Value Reference Range Interpretation Comments Albumin Lvl (test code = Albumin Lvl) 3.2 3.5-5.0 [facility]2015-06-20 09:05:00 Test Item Value Reference Range Interpretation Comments CO2 (test code = CO2) 28 24-32 [facility]2015-06-20 09:05:00 Test Item Value Reference Range Interpretation Comments Chloride Lvl (test code = Chloride Lvl) 95 95-109 [facility]2015-06-20 09:05:00 Test Item Value Reference Range Interpretation Comments Calcium Lvl (test code = Calcium Lvl) 8.2 8.5-10.5 [facility]2015-06-20 09:05:00 Test Item Value Reference Range Interpretation Comments Glucose Lvl (test code = Glucose Lvl) 147 70-99 [facility]2015-06-20 09:05:00 Test Item Value Reference Range Interpretation Comments Creatinine Lvl (test code = Creatinine 1.0 0.5-1.4 Lvl) [facility]2015-06-20 09:05:00 Test Item Value Reference Range Interpretation Comments BUN (test code = BUN) 11 7-22 [facility]CrnkagrEZEVGUBWHVGB1468-16-32 09:05:00 Test Item Value Reference Range Interpretation Comments AGAP (test code = AGAP) 10.5 10.0-20.0 [facility]CqqraseGTKGSXYVJWFC9989-58-95 09:05:00 Test Item Value Reference Range Interpretation Comments Calcium Lvl (test code = Calcium Lvl) 8.4 8.5-10.5 [facility] HospitalRjiipipQYPQBFMKTRAZ7839-31-21 09:05:00 Test Item Value Reference Range Interpretation Comments CO2 (test code = CO2) 27 24-32 [facility]BspzshlDGIEZLYIIUJN7806-04-00 09:05:00 Test Item Value Reference Range Interpretation Comments Chloride Lvl (test code = Chloride Lvl) 96 95-109 [facility]PcmumvwSJJPYGXGUQSX2365-18-94 09:05:00 Test Item Value Reference Range Interpretation Comments eGFR (test code = eGFR) 76 [facility]PjonymlMADTWGFJEVLT8634-75-78 09:05:00 Test Item Value Reference Range Interpretation Comments Potassium Lvl (test code = Potassium 3.5 3.5-5.1 Lvl) [facility] HospitalQoyioxtWSIQTDJZKKBM9466-47-67 09:05:00 Test Item Value Reference Range Interpretation Comments Sodium Lvl (test code = Sodium Lvl) 130 135-145 [facility]YydndgsHSFGVLWHQYNA6082-75-29 09:05:00 Test Item Value Reference Range Interpretation Comments Creatinine Lvl (test code = Creatinine 1.0 0.5-1.4 Lvl) [facility] HospitalGjwnhgbADUNCZYMCZZF5389-77-49 09:05:00 Test Item Value Reference Range Interpretation Comments BUN (test code = BUN) 11 7-22 [facility] HospitalAopwoidTELQLQQJVPDN4915-10-52 09:05:00 Test Item Value Reference Range Interpretation Comments Glucose Lvl (test code = Glucose Lvl) 145 70-99 [facility] HospitalOewgtroHQVHKCQWJD8853-80-09 09:05:00 Test Item Value Reference Range Interpretation Comments Lymphocytes (test code = Lymphocytes) 12.7 20.0-40.0 [facility] HospitalUtucmdqFOJANWGVQP8974-68-96 09:05:00 Test Item Value Reference Range Interpretation Comments Segs (test code = Segs) 74.1 45.0-75.0 [facility] HospitalXeagbriPBRUGODSRN8293-68-90 09:05:00 Test Item Value Reference Range Interpretation Comments Monocytes (test code = Monocytes) 12.6 2.0-12.0 [facility] HospitalJtobbetWKHKYLLNND7709-63-35 09:05:00 Test Item Value Reference Range Interpretation Comments Monocytes # (test code 1.6 See_Comment [Aut omated message] The = Monocytes #) system which generated this result tra nsmitted reference range : <=0.8. The reference r jose alfredo was not used to int erpret this result as normal/abnormal . [facility] HospitalTgrlfesYRUNPPANBO8735-85-45 09:05:00 Test Item Value Reference Range Interpretation Comments Lymphocytes # (test code = Lymphocytes 1.6 1.0-5.5 #) [facility] HospitalFelmxqqUKQLWVYMKU3940-82-12 09:05:00 Test Item Value Reference Range Interpretation Comments Basophils (test code = 0.2 See_Comment [Aut omated message] The Basophils) system which ge nerated this result tra nsmitted reference range : <=1.0. The reference r jose alfredo was not used to int erpret this result as normal/abnormal . [facility] HospitalIawstilOWDZGWRMOP9098-77-03 09:05:00 Test Item Value Reference Range Interpretation Comments Eosinophils (test code = 0.4 See_Comment [A utomated message] The Eosinophils) system which ge nerated this result tra nsmitted reference range : <=4.0. The reference r jose alfredo was not used to int erpret this result as normal/abnormal . [place] 412085-06-20 09:05:00 Test Item Value Reference Range Interpretation Comments Segs-Bands # (test code = Segs-Bands #) 9.6 1.5-8.1 [facility] HospitalGqkebfkKXPGCQLDFE7774-18-55 09:05:00 Test Item Value Reference Range Interpretation Comments Eosinophils # (test code 0.1 See_Comment [A utomated message] The = Eosinophils #) system [employer] h generated this result tra nsmitted reference range : <=0.5. The reference r jose alfredo was not used to int erpret this result as normal/abnormal . [facility] HospitalPhioewxGQZAASVHZU5490-70-06 09:05:00 Test Item Value Reference Range Interpretation Comments RBC (test code = RBC) 3.97 4.70-6.10 [facility] HospitalNyniwmwLQVLRNNXMP9858-50-75 09:05:00 Test Item Value Reference Range Interpretation Comments WBC (test code = WBC) 13.0 3.7-10.4 [facility] HospitalGdpahbqEBZSDTIASZ8291-11-16 09:05:00 Test Item Value Reference Range Interpretation Comments MPV (test code = MPV) 9.7 7.4-10.4 [facility] HospitalIhnubrzVZHZEIROUF5071-56-19 09:05:00 Test Item Value Reference Range Interpretation Comments RDW (test code = RDW) 13.1 11.5-14.5 [facility] HospitalMrsjlapPIFWWPBMLO6725-71-23 09:05:00 Test Item Value Reference Range Interpretation Comments Platelet (test code = Platelet) 202 133-450 [facility] HospitalVzqanddGUNOQALQHL0134-52-69 09:05:00 Test Item Value Reference Range Interpretation Comments Hct (test code = Hct) 34.8 42.0-54.0 [facility] HospitalLtjldqhXVYCDAEWGR5906-42-99 09:05:00 Test Item Value Reference Range Interpretation Comments MCV (test code = MCV) 87.8 80.0-94.0 [facility] HospitalBzqzmrpEQIFTBFBHQ3714-02-61 09:05:00 Test Item Value Reference Range Interpretation Comments Hgb (test code = Hgb) 11.9 14.0-18.0 [facility] HospitalOepfsioSECHUINTNL0297-90-75 09:05:00 Test Item Value Reference Range Interpretation Comments MCH (test code = MCH) 30.1 pg 27.0-31.0 [facility] HospitalQlurktoTEUEOYALWJ3866-54-41 09:05:00 Test Item Value Reference Range Interpretation Comments MCHC (test code = MCHC) 34.3 32.0-36.0 [facility]CHE[facility] [id number] 05:11:00 Test Item Value Reference Range Interpretation Comments Lactic Acid Lvl (test code = Lactic 1.1 0.5-2.2 Acid Lvl) [facility]VgrlfcrZGXTYZ7177-65-10 05:11:00 Test Item Value Reference Range Interpretation Comments VLDL (test code = VLDL) 14 [facility]cosJvcvolbBMGCEV9175-55-81 05:11:00 Test Item Value Reference Range Interpretation Comments LDL (Calculated) (test code = LDL 25 (Calculated)) [facility]cosTnfmelzIPTLIX2581-12-21 05:11:00 Test Item Value Reference Range Interpretation Comments Chol (test code = Chol) 91 [facility]cosJulusrgIFFDBI9761-93-74 05:11:00 Test Item Value Reference Range Interpretation Comments CHD Risk (test code = CHD Risk) 1.75 4.00-7.30 [facility]cosLouvudbVDBYRJ0605-33-67 05:11:00 Test Item Value Reference Range Interpretation Comments HDL (test code = HDL) 52 [facility]cosJztfhvqXZMBQZ4791-03-30 05:11:00 Test Item Value Reference Range Interpretation Comments Trig (test code = Trig) 71 [facility] CenterTHYROID EHMVO0482-77-63 05:11:00 Test Item Value Reference Range Interpretation Comments TSH (test code = TSH) 1.790 0.360-3.740 [facility]2015-06-20 05:11:00 Test Item Value Reference Range Interpretation Comments Lactic Acid Lvl (test code = Lactic 1.1 0.5-2.2 Acid Lvl) [facility]cosRqmlypzZNLNGE3027-57-39 05:11:00 Test Item Value Reference Range Interpretation Comments VLDL (test code = VLDL) 14 [facility]cosBpfkubfWMDSCN0801-42-27 05:11:00 Test Item Value Reference Range Interpretation Comments LDL (Calculated) (test code = LDL 25 (Calculated)) [facility]cosWsboyjdWVVYHT8608-85-53 05:11:00 Test Item Value Reference Range Interpretation Comments Chol (test code = Chol) 91 [facility]cosIegpdbbEWBVRP9181-13-13 05:11:00 Test Item Value Reference Range Interpretation Comments CHD Risk (test code = CHD Risk) 1.75 4.00-7.30 [facility]cosAeqahedRYCKJL6283-88-40 05:11:00 Test Item Value Reference Range Interpretation Comments HDL (test code = HDL) 52 [facility]cosYgpqxizAGHNNO1278-64-10 05:11:00 Test Item Value Reference Range Interpretation Comments Trig (test code = Trig) 71 [facility] CenterTHYROID IKYWH7117-48-79 05:11:00 Test Item Value Reference Range Interpretation Comments TSH (test code = TSH) 1.790 0.360-3.740 [facility] CenterCHEM QAHAV1515-10-50 05:11:00 Test Item Value Reference Range Interpretation Comments Lactic Acid Lvl (test code = Lactic 1.1 0.5-2.2 Acid Lvl) [facility]cosKmkhrmeCGUVWY7108-45-35 05:11:00 Test Item Value Reference Range Interpretation Comments VLDL (test code = VLDL) 14 [facility]cosFoztlonHTDVVI1356-27-21 05:11:00 Test Item Value Reference Range Interpretation Comments LDL (Calculated) (test code = LDL 25 (Calculated)) [facility]cosVasjkarCBHDPI8660-90-72 05:11:00 Test Item Value Reference Range Interpretation Comments Chol (test code = Chol) 91 [facility]cosXxrwamwKBMJEA6620-53-94 05:11:00 Test Item Value Reference Range Interpretation Comments CHD Risk (test code = CHD Risk) 1.75 4.00-7.30 [facility]cosGlyczlsWBNQMX8528-01-05 05:11:00 Test Item Value Reference Range Interpretation Comments HDL (test code = HDL) 52 [facility]cosDjqdsvfPRIKNM1328-22-71 05:11:00 Test Item Value Reference Range Interpretation Comments Trig (test code = Trig) 71 [facility] CenterTHYROID [id number] 05:11:00 Test Item Value Reference Range Interpretation Comments TSH (test code = TSH) 1.790 0.360-3.740 [facility] CenterBACTERIAL - [id number] 00:29:00 Test Item Value Reference Range Interpretation Comments MRSA by PCR (test Negative 16(02/17/15 7:29 code = MRSA by PCR) PM) [facility] CenterBACTERIAL - [id number] 00:29:00 Test Item Value Reference Range Interpretation Comments MRSA by PCR (test Negative 16(02/17/15 7:29 code = MRSA by PCR) PM) [facility] CenterBACTERIAL - [id number] 00:29:00 Test Item Value Reference Range Interpretation Comments MRSA by PCR (test Negative 16(02/17/15 7:29 code = MRSA by PCR) PM) [facility] CenterMuchasa [id number] 00:28:00 Test Item Value Reference Range Interpretation Comments Lactic Acid Lvl (test code = Lactic 1.0 0.5-2.2 Acid Lvl) [facility]NsyddgeSERCLTCQDU7363-74-53 00:28:00 Test Item Value Reference Range Interpretation Comments Platelet (test code = Platelet) 193 133-450 [facility] HospitalCdhlhnrUDAZGFXXUT1431-37-67 00:28:00 Test Item Value Reference Range Interpretation Comments PTT (test code = PTT) 25.3 s 22.9-35.8 [facility] [id number] 00:28:00 Test Item Value Reference Range Interpretation Comments Lactic Acid Lvl (test code = Lactic 1.0 0.5-2.2 Acid Lvl) [facility] DistrictOaajasrZWTKGJBDMA1057-38-12 00:28:00 Test Item Value Reference Range Interpretation Comments Platelet (test code = Platelet) 193 133-450 [facility] HospitalZkbfonnNWVUNJSKYU0137-80-44 00:28:00 Test Item Value Reference Range Interpretation Comments PTT (test code = PTT) 25.3 s 22.9-35.8 [facility] CenterMuchasa [id number] 00:28:00 Test Item Value Reference Range Interpretation Comments Lactic Acid Lvl (test code = Lactic 1.0 0.5-2.2 Acid Lvl) [facility] HospitalSqrwmdiWTKXLUPZIC6953-03-09 00:28:00 Test Item Value Reference Range Interpretation Comments Platelet (test code = Platelet) 193 133-450 [facility] HospitalNpojernLNZHVZTKAO1277-62-18 00:28:00 Test Item Value Reference Range Interpretation Comments PTT (test code = PTT) 25.3 s 22.9-35.8 [facility] CenterDR[facility] [id number] 21:40:00 Test Item Value Reference Range Interpretation Comments UDS Note (test code = See Note 8(02/17/15 4:40 UDS Note) PM) [facility] CenterDR[facility] [id number] 21:40:00 Test Item Value Reference Range Interpretation Comments U Phencyc Scr (test Negative *NA*(02/17/15 code = U Phencyc Scr) 4:40 PM) [facility] [id number] 21:40:00 Test Item Value Reference Range Interpretation Comments U Opiate Scr (test Negative *NA*(02/17/15 code = U Opiate Scr) 4:40 PM) [facility] [id number] 21:40:00 Test Item Value Reference Range Interpretation Comments U Cannab Scr (test Negative *NA*(02/17/15 code = U Cannab Scr) 4:40 PM) [facility] [id number] 21:40:00 Test Item Value Reference Range Interpretation Comments U Cocaine Scr (test Positive *ABN*(02/17/15 code = U Cocaine Scr) 4:40 PM) [facility]annDR[facility] [id number] 21:40:00 Test Item Value Reference Range Interpretation Comments U Benzodia Scr (test Negative *NA*(02/17/15 code = U Benzodia Scr) 4:40 PM) [facility]annDR[facility] [id number] 21:40:00 Test Item Value Reference Range Interpretation Comments U Marilee Scr (test code Negative *NA*(02/17/15 = U Marilee Scr) 4:40 PM) [facility]annDR[facility] [id number] 21:40:00 Test Item Value Reference Range Interpretation Comments U Amph Scr (test code Negative *NA*(02/17/15 = U Amph Scr) 4:40 PM) [facility] [id number] 21:40:00 Test Item Value Reference Range Interpretation Comments UA Blood (test code = Negative (02/17/15 4:40 UA Blood) PM) [facility] [id number] 21:40:00 Test Item Value Reference Range Interpretation Comments UA Glucose (test code = UA >=1000 mg/dL Glucose) [facility] [id number] 21:40:00 Test Item Value Reference Range Interpretation Comments UA Bili (test code = Negative *NA*(02/17/15 UA Bili) 4:40 PM) [facility] [id number] 21:40:00 Test Item Value Reference Range Interpretation Comments UA Color (test code = Yellow *NA*(02/17/15 UA Color) 4:40 PM) [facility] AND [id number] 21:40:00 Test Item Value Reference Range Interpretation Comments UA Spec Grav (test code = UA Spec 1.010 1 Grav) [facility] AND [id number] 21:40:00 Test Item Value Reference Range Interpretation Comments UA Turbidity (test code = Clear (02/17/15 4:40 UA Turbidity) PM) [facility] AND [id number] 21:40:00 Test Item Value Reference Range Interpretation Comments UA pH (test code = UA pH) 6.0 1 5.0-8.0 [facility] AND [id number] 21:40:00 Test Item Value Reference Range Interpretation Comments UA Leuk Est (test Negative (02/17/15 4:40 code = UA Leuk Est) PM) [facility] AND [id number] 21:40:00 Test Item Value Reference Range Interpretation Comments UA Nitrite (test code Negative (02/17/15 4:40 = UA Nitrite) PM) [facility] AND [id number] 21:40:00 Test Item Value Reference Range Interpretation Comments UA Urobilinogen (test code = UA 0.2 0.1-1.0 Urobilinogen) [facility] AND [id number] 21:40:00 Test Item Value Reference Range Interpretation Comments UA Ketones (test code = UA Negative mg/dL Ketones) [facility] AND [id number] 21:40:00 Test Item Value Reference Range Interpretation Comments UA Protein (test code = UA Negative mg/dL Protein) [facility] AND [id number] 21:40:00 Test Item Value Reference Range Interpretation Comments UA RBC (test code = 0-2 /HPF See_Comment [Automa stuart message] The UA RBC) system which ge nerated this result tra nsmitted reference range : <=2. The reference range was not used to interpr et this result as cherry l/abnormal. [facility] AND [id number] 21:40:00 Test Item Value Reference Range Interpretation Comments UA Bacteria (test code = UA Few /HPF Bacteria) [facility] AND [id number] 21:40:00 Test Item Value Reference Range Interpretation Comments UA Sq Epi (test code = UA Sq Epi) Few /LPF [facility] [id number] 21:40:00 Test Item Value Reference Range Interpretation Comments UA WBC (test code = UA WBC) 0-2 /HPF [facility] [id number] 21:40:00 Test Item Value Reference Range Interpretation Comments UDS Note (test code = See Note 8(02/17/15 4:40 UDS Note) PM) [facility] [id number] 21:40:00 Test Item Value Reference Range Interpretation Comments U Phencyc Scr (test Negative *NA*(02/17/15 code = U Phencyc Scr) 4:40 PM) [facility] [id number] 21:40:00 Test Item Value Reference Range Interpretation Comments U Opiate Scr (test Negative *NA*(02/17/15 code = U Opiate Scr) 4:40 PM) [facility] [id number] 21:40:00 Test Item Value Reference Range Interpretation Comments U Cannab Scr (test Negative *NA*(02/17/15 code = U Cannab Scr) 4:40 PM) [facility] [id number] 21:40:00 Test Item Value Reference Range Interpretation Comments U Cocaine Scr (test Positive *ABN*(02/17/15 code = U Cocaine Scr) 4:40 PM) [facility] [id number] 21:40:00 Test Item Value Reference Range Interpretation Comments U Benzodia Scr (test Negative *NA*(02/17/15 code = U Benzodia Scr) 4:40 PM) [facility] [id number] 21:40:00 Test Item Value Reference Range Interpretation Comments U Marilee Scr (test code Negative *NA*(02/17/15 = U Marilee Scr) 4:40 PM) [facility] [id number] 21:40:00 Test Item Value Reference Range Interpretation Comments U Amph Scr (test code Negative *NA*(02/17/15 = U Amph Scr) 4:40 PM) [facility] [id number] 21:40:00 Test Item Value Reference Range Interpretation Comments UA Blood (test code = Negative (02/17/15 4:40 UA Blood) PM) [facility] [id number] 21:40:00 Test Item Value Reference Range Interpretation Comments UA Glucose (test code = UA >=1000 mg/dL Glucose) [facility] AND [id number] 21:40:00 Test Item Value Reference Range Interpretation Comments UA Bili (test code = Negative *NA*(02/17/15 UA Bili) 4:40 PM) [facility] AND [id number] 21:40:00 Test Item Value Reference Range Interpretation Comments UA Color (test code = Yellow *NA*(02/17/15 UA Color) 4:40 PM) [facility] AND [id number] 21:40:00 Test Item Value Reference Range Interpretation Comments UA Spec Grav (test code = UA Spec 1.010 1 Grav) [facility] AND [id number] 21:40:00 Test Item Value Reference Range Interpretation Comments UA Turbidity (test code = Clear (02/17/15 4:40 UA Turbidity) PM) [facility] AND [id number] 21:40:00 Test Item Value Reference Range Interpretation Comments UA pH (test code = UA pH) 6.0 1 5.0-8.0 [facility] AND [id number] 21:40:00 Test Item Value Reference Range Interpretation Comments UA Leuk Est (test Negative (02/17/15 4:40 code = UA Leuk Est) PM) [facility] AND [id number] 21:40:00 Test Item Value Reference Range Interpretation Comments UA Nitrite (test code Negative (02/17/15 4:40 = UA Nitrite) PM) [facility] AND [id number] 21:40:00 Test Item Value Reference Range Interpretation Comments UA Urobilinogen (test code = UA 0.2 0.1-1.0 Urobilinogen) [facility] AND [id number] 21:40:00 Test Item Value Reference Range Interpretation Comments UA Ketones (test code = UA Negative mg/dL Ketones) [facility] AND [id number] 21:40:00 Test Item Value Reference Range Interpretation Comments UA Protein (test code = UA Negative mg/dL Protein) [facility] AND [id number] 21:40:00 Test Item Value Reference Range Interpretation Comments UA RBC (test code = 0-2 /HPF See_Comment [Automa stuart message] The UA RBC) system which ge nerated this result tra nsmitted reference range : <=2. The reference range was not used to interpr et this result as cherry l/abnormal. [facility] [id number] 21:40:00 Test Item Value Reference Range Interpretation Comments UA Bacteria (test code = UA Few /HPF Bacteria) [facility] [id number] 21:40:00 Test Item Value Reference Range Interpretation Comments UA Sq Epi (test code = UA Sq Epi) Few /LPF [facility] [id number] 21:40:00 Test Item Value Reference Range Interpretation Comments UA WBC (test code = UA WBC) 0-2 /HPF [facility] [id number] 21:40:00 Test Item Value Reference Range Interpretation Comments UDS Note (test code = See Note 8(02/17/15 4:40 UDS Note) PM) [facility] [id number] 21:40:00 Test Item Value Reference Range Interpretation Comments U Phencyc Scr (test Negative *NA*(02/17/15 code = U Phencyc Scr) 4:40 PM) [facility] [id number] 21:40:00 Test Item Value Reference Range Interpretation Comments U Opiate Scr (test Negative *NA*(02/17/15 code = U Opiate Scr) 4:40 PM) [facility] [id number] 21:40:00 Test Item Value Reference Range Interpretation Comments U Cannab Scr (test Negative *NA*(02/17/15 code = U Cannab Scr) 4:40 PM) [facility] [id number] 21:40:00 Test Item Value Reference Range Interpretation Comments U Cocaine Scr (test Positive *ABN*(02/17/15 code = U Cocaine Scr) 4:40 PM) [facility] [id number] 21:40:00 Test Item Value Reference Range Interpretation Comments U Benzodia Scr (test Negative *NA*(02/17/15 code = U Benzodia Scr) 4:40 PM) [facility] [id number] 21:40:00 Test Item Value Reference Range Interpretation Comments U Marilee Scr (test code Negative *NA*(02/17/15 = U Marilee Scr) 4:40 PM) [facility] [id number] 21:40:00 Test Item Value Reference Range Interpretation Comments U Amph Scr (test code Negative *NA*(02/17/15 = U Amph Scr) 4:40 PM) [facility] [id number] 21:40:00 Test Item Value Reference Range Interpretation Comments UA Blood (test code = Negative (02/17/15 4:40 UA Blood) PM) [facility] [id number] 21:40:00 Test Item Value Reference Range Interpretation Comments UA Glucose (test code = UA >=1000 mg/dL Glucose) [facility] [id number] 21:40:00 Test Item Value Reference Range Interpretation Comments UA Bili (test code = Negative *NA*(02/17/15 UA Bili) 4:40 PM) [facility] [id number] 21:40:00 Test Item Value Reference Range Interpretation Comments UA Color (test code = Yellow *NA*(02/17/15 UA Color) 4:40 PM) [facility] [id number] 21:40:00 Test Item Value Reference Range Interpretation Comments UA Spec Grav (test code = UA Spec 1.010 1 Grav) [facility] [id number] 21:40:00 Test Item Value Reference Range Interpretation Comments UA Turbidity (test code = Clear (02/17/15 4:40 UA Turbidity) PM) [facility] [id number] 21:40:00 Test Item Value Reference Range Interpretation Comments UA pH (test code = UA pH) 6.0 1 5.0-8.0 [facility] [id number] 21:40:00 Test Item Value Reference Range Interpretation Comments UA Leuk Est (test Negative (02/17/15 4:40 code = UA Leuk Est) PM) [facility] [id number] 21:40:00 Test Item Value Reference Range Interpretation Comments UA Nitrite (test code Negative (02/17/15 4:40 = UA Nitrite) PM) [facility] [id number] 21:40:00 Test Item Value Reference Range Interpretation Comments UA Urobilinogen (test code = UA 0.2 0.1-1.0 Urobilinogen) [facility] AND [id number] 21:40:00 Test Item Value Reference Range Interpretation Comments UA Ketones (test code = UA Negative mg/dL Ketones) [facility] AND [id number] 21:40:00 Test Item Value Reference Range Interpretation Comments UA Protein (test code = UA Negative mg/dL Protein) [facility] AND [id number] 21:40:00 Test Item Value Reference Range Interpretation Comments UA RBC (test code = 0-2 /HPF See_Comment [Automa stuart message] The UA RBC) system which ge nerated this result tra nsmitted reference range : <=2. The reference range was not used to interpr et this result as cherry l/abnormal. [facility] AND [id number] 21:40:00 Test Item Value Reference Range Interpretation Comments UA Bacteria (test code = UA Few /HPF Bacteria) [facility] AND [id number] 21:40:00 Test Item Value Reference Range Interpretation Comments UA Sq Epi (test code = UA Sq Epi) Few /LPF [facility] AND [id number] 21:40:00 Test Item Value Reference Range Interpretation Comments UA WBC (test code = UA WBC) 0-2 /HPF [facility] [id number] 21:12:00 Test Item Value Reference Range Interpretation Comments Osmolality (test code = Osmolality) 255 280-300 [facility]2015-06-19 21:12:00 Test Item Value Reference Range Interpretation Comments Osmolality (test code = Osmolality) 255 280-300 [facility]2015-06-19 21:12:00 Test Item Value Reference Range Interpretation Comments Osmolality (test code = Osmolality) 255 280-300 [facility]2015-06-19 20:00:00 Test Item Value Reference Range Interpretation Comments U Sodium (test code = U Sodium) 53 [facility]2015-06-19 20:00:00 Test Item Value Reference Range Interpretation Comments U Osmolality (test code = U Osmolality) 344 300-800 [facility]2015-06-19 20:00:00 Test Item Value Reference Range Interpretation Comments U Creatinine (test code = U Creatinine) 36.2 [facility] [id number] 20:00:00 Test Item Value Reference Range Interpretation Comments U Chloride (test code = U Chloride) [facility] [id number] 20:00:00 Test Item Value Reference Range Interpretation Comments U Sodium (test code = U Sodium) 53 [facility] [id number] 20:00:00 Test Item Value Reference Range Interpretation Comments U Osmolality (test code = U Osmolality) 344 300-800 [facility] [id number] 20:00:00 Test Item Value Reference Range Interpretation Comments U Creatinine (test code = U Creatinine) 36.2 [facility] [id number] 20:00:00 Test Item Value Reference Range Interpretation Comments U Chloride (test code = U Chloride) [facility] [id number] 20:00:00 Test Item Value Reference Range Interpretation Comments U Sodium (test code = U Sodium) 53 [facility] [id number] 20:00:00 Test Item Value Reference Range Interpretation Comments U Osmolality (test code = U Osmolality) 344 300-800 [facility] [id number] 20:00:00 Test Item Value Reference Range Interpretation Comments U Creatinine (test code = U Creatinine) 36.2 [facility] [id number] 20:00:00 Test Item Value Reference Range Interpretation Comments U Chloride (test code = U Chloride) 72 [facility] [id number] 16:09:00 Test Item Value Reference Range Interpretation Comments CK MB (test code = CK MB) 7.2 0.5-3.6 [facility] [employer]CARD[employer]AC [id number] 16:09:00 Test Item Value Reference Range Interpretation Comments BNP (test code = BNP) 92 [facility] [employer]CARD[employer]AC [id number] 16:09:00 Test Item Value Reference Range Interpretation Comments Total CK (test code = Total CK) 493 12-191 [facility] [employer]CARD[employer]AC [id number] 16:09:00 Test Item Value Reference Range Interpretation Comments CK MB Index (test 1.5 See_Comment [Automate d message] The code = CK MB Index) system w [facility] generated this result transmit stuart reference range : <=2.5. The reference range was not used to interpr et this result as cherry l/abnormal. [facility] [id number] 16:09:00 Test Item Value Reference Range Interpretation Comments Troponin-I (test code 0.11 See_Comment [Auto mated message] The = Troponin-I) system which g enerated this result transmit stuatr reference range : <=0.40. The reference r jose alfredo was not used to interpr et this result as cherry l/abnormal. [facility] [id number] 16:09:00 Test Item Value Reference Range Interpretation Comments Procalcitonin Lvl <0.05 ng/mL See_Comment [Automate d message] (test code = The system whic h Procalcitonin Lvl) generated this result transmit stuart reference range : <=0.10. The reference range was not used to interpret this result as normal/abnormal . [facility] [id number] 16:09:00 Test Item Value Reference Range Interpretation Comments Bili Total (test code = Bili Total) 0.7 0.2-1.3 [facility] [id number] 16:09:00 Test Item Value Reference Range Interpretation Comments AST (test code = AST) 28 See_Comment [Auto mated message] The system which ge nerated this result transmit stuart reference range : <=37. The reference range was not used to interpr et this result as cherry l/abnormal. [facility] [id number] 16:09:00 Test Item Value Reference Range Interpretation Comments Globulin (test code = Globulin) 3.5 2.0-4.0 [facility] [id number] 16:09:00 Test Item Value Reference Range Interpretation Comments Total Protein (test code = Total 7.3 6.4-8.4 Protein) [facility]2015-06-19 16:09:00 Test Item Value Reference Range Interpretation Comments Albumin Lvl (test code = Albumin Lvl) 3.8 3.5-5.0 [facility] [id number] 16:09:00 Test Item Value Reference Range Interpretation Comments Alk Phos (test code = Alk Phos) 38 39-136 [facility] [id number] 16:09:00 Test Item Value Reference Range Interpretation Comments ALT (test code = ALT) 24 See_Comment [Auto mated message] The system which ge nerated this result transmit stuart reference range : <=65. The reference range was not used to interpr et this result as cherry l/abnormal. [facility] [employer] [id number] 16:09:00 Test Item Value Reference Range Interpretation Comments A/G Ratio (test code = A/G Ratio) 1.1 0.7-1.6 [facility] [employer] [id number] 16:09:00 Test Item Value Reference Range Interpretation Comments B/C Ratio (test code = B/C Ratio) 11 6-25 [facility] [employer] [id number] 16:09:00 Test Item Value Reference Range Interpretation Comments CK MB (test code = CK MB) 7.2 0.5-3.6 [facility] [employer] [id number] 16:09:00 Test Item Value Reference Range Interpretation Comments BNP (test code = BNP) 92 [facility] DistrictSpearFysh2015-06-19 16:09:00 Test Item Value Reference Range Interpretation Comments Total CK (test code = Total CK) 493 12-191 [facility] DistrictuberVU [id number] 16:09:00 Test Item Value Reference Range Interpretation Comments CK MB Index (test 1.5 See_Comment [Automate d message] The code = CK MB Index) system w [facility] generated this result transmit stuart reference range : <=2.5. The reference range was not used to interpr et this result as cherry l/abnormal. [facility] Abril2015-06-19 16:09:00 Test Item Value Reference Range Interpretation Comments Troponin-I (test code 0.11 See_Comment [Auto mated message] The = Troponin-I) system which g enerated this result transmit stuart reference range : <=0.40. The reference r jose alfredo was not used to interpr et this result as cherry l/abnormal. [facility] [employer] [id number] 16:09:00 Test Item Value Reference Range Interpretation Comments Procalcitonin Lvl <0.05 ng/mL See_Comment [Automate d message] (test code = The system whic h Procalcitonin Lvl) generated this result transmit stuart reference range : <=0.10. The reference range was not used to interpret this result as normal/abnormal . [facility] [employer] [id number] 16:09:00 Test Item Value Reference Range Interpretation Comments Bili Total (test code = Bili Total) 0.7 0.2-1.3 [facility] [employer] [id number] 16:09:00 Test Item Value Reference Range Interpretation Comments AST (test code = AST) 28 See_Comment [Auto mated message] The system which ge nerated this result transmit stuart reference range : <=37. The reference range was not used to interpr et this result as cherry l/abnormal. [facility] [employer] [id number] 16:09:00 Test Item Value Reference Range Interpretation Comments Globulin (test code = Globulin) 3.5 2.0-4.0 [facility] [employer] [id number] 16:09:00 Test Item Value Reference Range Interpretation Comments Total Protein (test code = Total 7.3 6.4-8.4 Protein) [facility] [employer]2015-06-19 16:09:00 Test Item Value Reference Range Interpretation Comments Albumin Lvl (test code = Albumin Lvl) 3.8 3.5-5.0 [facility] [employer] [id number] 16:09:00 Test Item Value Reference Range Interpretation Comments Alk Phos (test code = Alk Phos) 38 39-136 [facility] [employer] [id number] 16:09:00 Test Item Value Reference Range Interpretation Comments ALT (test code = ALT) 24 See_Comment [Auto mated message] The system which ge nerated this result transmit stuart reference range : <=65. The reference range was not used to interpr et this result as cherry l/abnormal. [employer] [id number] 16:09:00 Test Item Value Reference Range Interpretation Comments A/G Ratio (test code = A/G Ratio) 1.1 0.7-1.6 [employer] [id number] 16:09:00 Test Item Value Reference Range Interpretation Comments B/C Ratio (test code = B/C Ratio) 11 6-25 [facility] [employer] [id number] 16:09:00 Test Item Value Reference Range Interpretation Comments CK MB (test code = CK MB) 7.2 0.5-3.6 [employer] [id number] 16:09:00 Test Item Value Reference Range Interpretation Comments BNP (test code = BNP) 92 [facility] Districtflaregames[facility] [id number] 16:09:00 Test Item Value Reference Range Interpretation Comments Total CK (test code = Total CK) 493 12-191 [facility] [id number] 16:09:00 Test Item Value Reference Range Interpretation Comments CK MB Index (test 1.5 See_Comment [Automate d message] The code = CK MB Index) system w [facility] generated this result transmit stuart reference range : <=2.5. The reference range was not used to interpr et this result as cherry l/abnormal. [facility] Abril2015-06-19 16:09:00 Test Item Value Reference Range Interpretation Comments Troponin-I (test code 0.11 See_Comment [Auto mated message] The = Troponin-I) system which g enerated this result transmit stuart reference range : <=0.40. The reference r jose alfredo was not used to interpr et this result as cherry l/abnormal. [facility] [employer]2015-06-19 16:09:00 Test Item Value Reference Range Interpretation Comments Procalcitonin Lvl <0.05 ng/mL See_Comment [Automate d message] (test code = The system whic h Procalcitonin Lvl) generated this result transmit stuart reference range : <=0.10. The reference range was not used to interpret this result as normal/abnormal . [facility] [employer]2015-06-19 16:09:00 Test Item Value Reference Range Interpretation Comments Bili Total (test code = Bili Total) 0.7 0.2-1.3 [facility] [employer]2015-06-19 16:09:00 Test Item Value Reference Range Interpretation Comments AST (test code = AST) 28 See_Comment [Auto mated message] The system which ge nerated this result transmit stuart reference range : <=37. The reference range was not used to interpr et this result as cherry l/abnormal. [facility] [employer]2015-06-19 16:09:00 Test Item Value Reference Range Interpretation Comments Globulin (test code = Globulin) 3.5 2.0-4.0 [facility] [employer]2015-06-19 16:09:00 Test Item Value Reference Range Interpretation Comments Total Protein (test code = Total 7.3 6.4-8.4 Protein) [facility]2015-06-19 16:09:00 Test Item Value Reference Range Interpretation Comments Albumin Lvl (test code = Albumin Lvl) 3.8 3.5-5.0 [facility]2015-06-19 16:09:00 Test Item Value Reference Range Interpretation Comments Alk Phos (test code = Alk Phos) 38 39-136 [facility]2015-06-19 16:09:00 Test Item Value Reference Range Interpretation Comments ALT (test code = ALT) 24 See_Comment [Auto mated message] The system which ge nerated this result transmit stuart reference range : <=65. The reference range was not used to interpr et this result as cherry l/abnormal. [facility]2015-06-19 16:09:00 Test Item Value Reference Range Interpretation Comments A/G Ratio (test code = A/G Ratio) 1.1 0.7-1.6 [facility]2015-06-19 16:09:00 Test Item Value Reference Range Interpretation Comments B/C Ratio (test code = B/C Ratio) 11 6-25 [id number] 15:08:00 Test Item Value Reference Range Interpretation Comments Basophils # (test code 0.1 See_Comment [Aut omated message] The = Basophils #) system which generated this result tra nsmitted reference range : <=0.2. The reference r jose alfredo was not used to int erpret this result as normal/abnormal . [facility] [id number] 15:08:00 Test Item Value Reference Range Interpretation Comments Segs-Bands # (test code = Segs-Bands #) 10.7 1.5-8.1 [facility] [id number] 15:08:00 Test Item Value Reference Range Interpretation Comments Lymphocytes # (test code = Lymphocytes 1.2 1.0-5.5 #) [facility] H[id number] 15:08:00 Test Item Value Reference Range Interpretation Comments Monocytes # (test code 1.5 See_Comment [Aut omated message] The = Monocytes #) system which generated this result tra nsmitted reference range : <=0.8. The reference r jose alfredo was not used to int erpret this result as normal/abnormal . [facility] H[id number] 15:08:00 Test Item Value Reference Range Interpretation Comments Segs (test code = Segs) 79.6 45.0-75.0 [facility] H[id number] 15:08:00 Test Item Value Reference Range Interpretation Comments Lymphocytes (test code = Lymphocytes) 8.8 20.0-40.0 [facility] H[id number] 15:08:00 Test Item Value Reference Range Interpretation Comments Monocytes (test code = Monocytes) 10.8 2.0-12.0 [facility] HospitalGdsfjekGWHJMJSFJB5168-03-02 15:08:00 Test Item Value Reference Range Interpretation Comments Basophils (test code = 0.5 See_Comment [Aut omated message] The Basophils) system which ge nerated this result tra nsmitted reference range : <=1.0. The reference r jose alfredo was not used to int erpret this result as normal/abnormal . [facility] H[id number] 15:08:00 Test Item Value Reference Range Interpretation Comments Eosinophils (test code = 0.3 See_Comment [A utomated message] The Eosinophils) system which ge nerated this result tra nsmitted reference range : <=4.0. The reference r jose alfredo was not used to int erpret this result as normal/abnormal . [facility] H[id number] 15:08:00 Test Item Value Reference Range Interpretation Comments PT (test code = PT) 13.3 s 12.0-14.7 [facility] Hospit[id number] 15:08:00 Test Item Value Reference Range Interpretation Comments PTT (test code = PTT) 26.3 s 22.9-35.8 [facility] HospitalFgjownnXNZQVEBLQU2219-10-89 15:08:00 Test Item Value Reference Range Interpretation Comments INR (test code = INR) 1.01 0.85-1.17 [facility] HospitalOabbiuqZUNOLZJUWV4953-32-86 15:08:00 Test Item Value Reference Range Interpretation Comments MCHC (test code = MCHC) 33.5 32.0-36.0 [facility] HospitalXjllslmWMJLKWEYYN5884-51-25 15:08:00 Test Item Value Reference Range Interpretation Comments RDW (test code = RDW) 13.0 11.5-14.5 [id number] 15:08:00 Test Item Value Reference Range Interpretation Comments Hct (test code = Hct) 39.1 42.0-54.0 [facility] HospitalKplxdcuNGVZFRJMUM9314-38-59 15:08:00 Test Item Value Reference Range Interpretation Comments WBC (test code = WBC) 13.5 3.7-10.4 [facility] Hospit[id number] 15:08:00 Test Item Value Reference Range Interpretation Comments MCV (test code = MCV) 90.1 80.0-94.0 [facility] Hospit[id number] 15:08:00 Test Item Value Reference Range Interpretation Comments MCH (test code = MCH) 30.2 pg 27.0-31.0 [facility] HospitalUbnmzeiCWEQLXZDEW4974-22-57 15:08:00 Test Item Value Reference Range Interpretation Comments MPV (test code = MPV) 9.5 7.4-10.4 [facility] Hospit[id number] 15:08:00 Test Item Value Reference Range Interpretation Comments RBC (test code = RBC) 4.34 4.70-6.10 [facility] HospitalJlodcmnSVSMZOBFIS4488-90-41 15:08:00 Test Item Value Reference Range Interpretation Comments Hgb (test code = Hgb) 13.1 14.0-18.0 [facility]WVVMPGRHAF6655-57-95 15:08:00 Test Item Value Reference Range Interpretation Comments Etoh (%) (test code = Etoh (%)) no gt [facility] CenterGpxraqfUHAPBOUYUE1300-11-78 15:08:00 Test Item Value Reference Range Interpretation Comments Ethanol Lvl (test code = Ethanol Lvl) no gt [facility] AND [id number] 15:08:00 Test Item Value Reference Range Interpretation Comments UA Ketones (test code Negative *NA*(02/17/15 = UA Ketones) 10:08 AM) [facility] [id number] 15:08:00 Test Item Value Reference Range Interpretation Comments UA Bili (test code = Negative *NA*(02/17/15 UA Bili) 10:08 AM) [facility] [id number] 15:08:00 Test Item Value Reference Range Interpretation Comments UA Urobilinogen (test code = UA 0.2 0.1-1.0 Urobilinogen) [facility] AND [id number] 15:08:00 Test Item Value Reference Range Interpretation Comments UA Blood (test code = Negative (02/17/15 10:08 UA Blood) AM) [facility] AND [id number] 15:08:00 Test Item Value Reference Range Interpretation Comments UA Nitrite (test code Negative (02/17/15 10:08 = UA Nitrite) AM) [facility] AND [id number] 15:08:00 Test Item Value Reference Range Interpretation Comments UA Leuk Est (test Negative (02/17/15 10:08 code = UA Leuk Est) AM) [facility] AND [id number] 15:08:00 Test Item Value Reference Range Interpretation Comments UA Spec Grav (test *NA*(02/17/15 10:08 AM) code = UA Spec Grav) [facility] AND [id number] 15:08:00 Test Item Value Reference Range Interpretation Comments UA Glucose (test code = UA Glucose) 100 mg/dL [facility] AND [id number] 15:08:00 Test Item Value Reference Range Interpretation Comments UA Protein (test code Negative (02/17/15 10:08 = UA Protein) AM) [facility] AND [id number] 15:08:00 Test Item Value Reference Range Interpretation Comments UA pH (test code = UA pH) 7.0 1 5.0-8.0 [facility] AND [id number] 15:08:00 Test Item Value Reference Range Interpretation Comments UA Color (test code = Yellow *NA*(02/17/15 UA Color) 10:08 AM) [facility] AND [id number] 15:08:00 Test Item Value Reference Range Interpretation Comments UA Turbidity (test code = Clear (02/17/15 10:08 UA Turbidity) AM) [facility] AND [id number] 15:08:00 Test Item Value Reference Range Interpretation Comments UA WBC (test code = UA None Seen (02/17/15 WBC) 10:08 AM) [facility] AND [id number] 15:08:00 Test Item Value Reference Range Interpretation Comments UA RBC (test None Seen See_Comment [Automated mes moises] code = UA RBC) (02/17/15 10:08 The system which AM) generated this result transmitted ref erence range: <=2. The reference range was not used to int erpret this result as normal/abnormal . [facility] AND [id number] 15:08:00 Test Item Value Reference Range Interpretation Comments UA Bacteria (test code = None Seen (02/17/15 UA Bacteria) 10:08 AM) [facility] AND [id number] 15:08:00 Test Item Value Reference Range Interpretation Comments UA Sq Epi (test code = None Seen (02/17/15 UA Sq Epi) 10:08 AM) [facility] HospitalKnptzuiSTEUHMULZQ5232-12-92 15:08:00 Test Item Value Reference Range Interpretation Comments Basophils # (test code 0.1 See_Comment [Aut omated message] The = Basophils #) system which generated this result tra nsmitted reference range : <=0.2. The reference r jose alfredo was not used to int erpret this result as normal/abnormal . [facility] H[id number] 15:08:00 Test Item Value Reference Range Interpretation Comments Segs-Bands # (test code = Segs-Bands #) 10.7 1.5-8.1 [facility] HospitalNvixxdbKJTTULWVLP7745-07-65 15:08:00 Test Item Value Reference Range Interpretation Comments Lymphocytes # (test code = Lymphocytes 1.2 1.0-5.5 #) [facility] Hospit[id number] 15:08:00 Test Item Value Reference Range Interpretation Comments Monocytes # (test code 1.5 See_Comment [Aut omated message] The = Monocytes #) system which generated this result tra nsmitted reference range : <=0.8. The reference r jose alfredo was not used to int erpret this result as normal/abnormal . [facility] HospitalQixjroiPFURAYWAVU4436-65-66 15:08:00 Test Item Value Reference Range Interpretation Comments Segs (test code = Segs) 79.6 45.0-75.0 [facility] HospitalNmebhfyDETKXYJICK5106-98-30 15:08:00 Test Item Value Reference Range Interpretation Comments Lymphocytes (test code = Lymphocytes) 8.8 20.0-40.0 [facility] HospitalEwwclubYWREWHPJLP1688-79-53 15:08:00 Test Item Value Reference Range Interpretation Comments Monocytes (test code = Monocytes) 10.8 2.0-12.0 [facility] HospitalPimzgrcAGMYYCVFGR5878-10-39 15:08:00 Test Item Value Reference Range Interpretation Comments Basophils (test code = 0.5 See_Comment [Aut omated message] The Basophils) system which ge nerated this result tra nsmitted reference range : <=1.0. The reference r jose alfredo was not used to int erpret this result as normal/abnormal . [facility] HospitalFctuxjpZEFJMCUWRJ9021-29-36 15:08:00 Test Item Value Reference Range Interpretation Comments Eosinophils (test code = 0.3 See_Comment [A utomated message] The Eosinophils) system which ge nerated this result tra nsmitted reference range : <=4.0. The reference r jose alfredo was not used to int erpret this result as normal/abnormal . [facility] HospitalFxgsdadYSCOZXYUFV5170-89-44 15:08:00 Test Item Value Reference Range Interpretation Comments PT (test code = PT) 13.3 s 12.0-14.7 [facility] HospitalDdkrblfRCQJZKPHJH0825-37-64 15:08:00 Test Item Value Reference Range Interpretation Comments PTT (test code = PTT) 26.3 s 22.9-35.8 [facility] HospitalPyvzgqvVPZFVNXSFC7548-55-93 15:08:00 Test Item Value Reference Range Interpretation Comments INR (test code = INR) 1.01 0.85-1.17 [facility] H[id number] 15:08:00 Test Item Value Reference Range Interpretation Comments MCHC (test code = MCHC) 33.5 32.0-36.0 [facility] HospitalZvjlnjrNQSANWLFVI5590-60-95 15:08:00 Test Item Value Reference Range Interpretation Comments RDW (test code = RDW) 13.0 11.5-14.5 [facility] HospitalJggddhqCNIBSCQSIF9869-54-84 15:08:00 Test Item Value Reference Range Interpretation Comments Hct (test code = Hct) 39.1 42.0-54.0 [facility] HospitalNobacetXRXFFQLXFW4953-33-25 15:08:00 Test Item Value Reference Range Interpretation Comments WBC (test code = WBC) 13.5 3.7-10.4 [facility] HospitalMpmqqunUIHXAVQFVF4297-60-67 15:08:00 Test Item Value Reference Range Interpretation Comments MCV (test code = MCV) 90.1 80.0-94.0 [facility]XtbcocrDDFOUKLQVV9772-96-82 15:08:00 Test Item Value Reference Range Interpretation Comments MCH (test code = MCH) 30.2 pg 27.0-31.0 [facility] Hospit[id number] 15:08:00 Test Item Value Reference Range Interpretation Comments MPV (test code = MPV) 9.5 7.4-10.4 [facility] HospitalDskyfyrWULZJRZQQM2928-39-78 15:08:00 Test Item Value Reference Range Interpretation Comments RBC (test code = RBC) 4.34 4.70-6.10 [facility] HospitalTisjwszXZTVXSLUDQ4828-86-47 15:08:00 Test Item Value Reference Range Interpretation Comments Hgb (test code = Hgb) 13.1 14.0-18.0 [facility] HospitalSclmsdrQMSZJZPBPQ2026-48-54 15:08:00 Test Item Value Reference Range Interpretation Comments Etoh (%) (test code = Etoh (%)) no gt [facility] CenterHbfjrwnPMUPIWAZVK5905-76-95 15:08:00 Test Item Value Reference Range Interpretation Comments Ethanol Lvl (test code = Ethanol Lvl) no gt [facility] [id number] 15:08:00 Test Item Value Reference Range Interpretation Comments UA Ketones (test code Negative *NA*(02/17/15 = UA Ketones) 10:08 AM) [facility] [id number] 15:08:00 Test Item Value Reference Range Interpretation Comments UA Bili (test code = Negative *NA*(02/17/15 UA Bili) 10:08 AM) [facility] [id number] 15:08:00 Test Item Value Reference Range Interpretation Comments UA Urobilinogen (test code = UA 0.2 0.1-1.0 Urobilinogen) [facility] [id number] 15:08:00 Test Item Value Reference Range Interpretation Comments UA Blood (test code = Negative (02/17/15 10:08 UA Blood) AM) [facility] [id number] 15:08:00 Test Item Value Reference Range Interpretation Comments UA Nitrite (test code Negative (02/17/15 10:08 = UA Nitrite) AM) [facility] AND [id number] 15:08:00 Test Item Value Reference Range Interpretation Comments UA Leuk Est (test Negative (02/17/15 10:08 code = UA Leuk Est) AM) [facility] AND [id number] 15:08:00 Test Item Value Reference Range Interpretation Comments UA Spec Grav (test *NA*(02/17/15 10:08 AM) code = UA Spec Grav) [facility] AND [id number] 15:08:00 Test Item Value Reference Range Interpretation Comments UA Glucose (test code = UA Glucose) 100 mg/dL [facility] AND [id number] 15:08:00 Test Item Value Reference Range Interpretation Comments UA Protein (test code Negative (02/17/15 10:08 = UA Protein) AM) [facility] AND [id number] 15:08:00 Test Item Value Reference Range Interpretation Comments UA pH (test code = UA pH) 7.0 1 5.0-8.0 [facility] AND [id number] 15:08:00 Test Item Value Reference Range Interpretation Comments UA Color (test code = Yellow *NA*(02/17/15 UA Color) 10:08 AM) [facility] AND [id number] 15:08:00 Test Item Value Reference Range Interpretation Comments UA Turbidity (test code = Clear (02/17/15 10:08 UA Turbidity) AM) [facility] AND [id number] 15:08:00 Test Item Value Reference Range Interpretation Comments UA WBC (test code = UA None Seen (02/17/15 WBC) 10:08 AM) [facility] AND [id number] 15:08:00 Test Item Value Reference Range Interpretation Comments UA RBC (test None Seen See_Comment [Automated mes moises] code = UA RBC) (02/17/15 10:08 The system which AM) generated this result transmitted ref erence range: <=2. The reference range was not used to int erpret this result as normal/abnormal . [facility] AND [id number] 15:08:00 Test Item Value Reference Range Interpretation Comments UA Bacteria (test code = None Seen (02/17/15 UA Bacteria) 10:08 AM) [facility] AND [id number] 15:08:00 Test Item Value Reference Range Interpretation Comments UA Sq Epi (test code = None Seen (02/17/15 UA Sq Epi) 10:08 AM) [facility] HospitalGwsaoncEZVQZNFGSH9806-16-99 15:08:00 Test Item Value Reference Range Interpretation Comments Basophils # (test code 0.1 See_Comment [Aut omated message] The = Basophils #) system which generated this result tra nsmitted reference range : <=0.2. The reference r jose alfredo was not used to int erpret this result as normal/abnormal . [facility] HospitalVjtkbhcJZPQQLILOS9477-14-28 15:08:00 Test Item Value Reference Range Interpretation Comments Segs-Bands # (test code = Segs-Bands #) 10.7 1.5-8.1 [facility] HospitalHjqrdxgDRANQOUOOK9350-31-48 15:08:00 Test Item Value Reference Range Interpretation Comments Lymphocytes # (test code = Lymphocytes 1.2 1.0-5.5 #) [facility] HospitalDbluzhiNVHLOAOAIC4972-02-55 15:08:00 Test Item Value Reference Range Interpretation Comments Monocytes # (test code 1.5 See_Comment [Aut omated message] The = Monocytes #) system which generated this result tra nsmitted reference range : <=0.8. The reference r jose alfredo was not used to int erpret this result as normal/abnormal . [facility] HospitalCwzsojcQFADQGANRU0498-68-41 15:08:00 Test Item Value Reference Range Interpretation Comments Segs (test code = Segs) 79.6 45.0-75.0 [facility] HospitalWaiodtyVVLQPWSKHI1691-07-29 15:08:00 Test Item Value Reference Range Interpretation Comments Lymphocytes (test code = Lymphocytes) 8.8 20.0-40.0 [facility] HospitalKpiwewtSYJDEMZCJK0533-28-76 15:08:00 Test Item Value Reference Range Interpretation Comments Monocytes (test code = Monocytes) 10.8 2.0-12.0 [facility] HospitalHfzooiiFRTYLIICIO7012-55-66 15:08:00 Test Item Value Reference Range Interpretation Comments Basophils (test code = 0.5 See_Comment [Aut omated message] The Basophils) system which ge nerated this result tra nsmitted reference range : <=1.0. The reference r jose alfredo was not used to int erpret this result as normal/abnormal . [facility] HospitalKqmffzrYPBGAJQRKF4652-92-24 15:08:00 Test Item Value Reference Range Interpretation Comments Eosinophils (test code = 0.3 See_Comment [A utomated message] The Eosinophils) system which ge nerated this result tra nsmitted reference range : <=4.0. The reference r jose alfredo was not used to int erpret this result as normal/abnormal . [facility] HospitalRxptexdJDAXOTAJVP4504-15-49 15:08:00 Test Item Value Reference Range Interpretation Comments PT (test code = PT) 13.3 s 12.0-14.7 [facility] HospitalUrbftamVJJWVUPRDY4191-08-80 15:08:00 Test Item Value Reference Range Interpretation Comments PTT (test code = PTT) 26.3 s 22.9-35.8 [facility] HospitalWkexykoHRILEJBLCA4379-83-99 15:08:00 Test Item Value Reference Range Interpretation Comments INR (test code = INR) 1.01 0.85-1.17 [facility] HospitalMcfoozbBRUJMLHMVS0483-87-91 15:08:00 Test Item Value Reference Range Interpretation Comments MCHC (test code = MCHC) 33.5 32.0-36.0 [facility] HospitalUyudnfySZJAHENBFH2456-94-77 15:08:00 Test Item Value Reference Range Interpretation Comments RDW (test code = RDW) 13.0 11.5-14.5 [facility] HospitalCjcscfmFSJRCDJSVT7118-30-63 15:08:00 Test Item Value Reference Range Interpretation Comments Hct (test code = Hct) 39.1 42.0-54.0 [facility] HospitalMvijzxgCXCQTCSAWV7790-59-50 15:08:00 Test Item Value Reference Range Interpretation Comments WBC (test code = WBC) 13.5 3.7-10.4 [facility] HospitalVqpoauzUDJRXLCNZE8544-70-01 15:08:00 Test Item Value Reference Range Interpretation Comments MCV (test code = MCV) 90.1 80.0-94.0 [facility] HospitalKalkfhcLVSSMAOVLE7057-67-95 15:08:00 Test Item Value Reference Range Interpretation Comments MCH (test code = MCH) 30.2 pg 27.0-31.0 [facility] HospitalJuronmkAOBPTPCWKY6683-88-38 15:08:00 Test Item Value Reference Range Interpretation Comments MPV (test code = MPV) 9.5 7.4-10.4 [facility] HospitalNcbiszzBTJCMKSOYU9590-89-74 15:08:00 Test Item Value Reference Range Interpretation Comments RBC (test code = RBC) 4.34 4.70-6.10 [facility] CenterNsmlaobTLYMQPTIBZ4149-64-30 15:08:00 Test Item Value Reference Range Interpretation Comments Hgb (test code = Hgb) 13.1 14.0-18.0 [facility] CenterWlqqotqJRWLLSYIBN3569-04-31 15:08:00 Test Item Value Reference Range Interpretation Comments Etoh (%) (test code = Etoh (%)) no gt [facility] JryxyiyQFHDVONIGB2146-18-64 15:08:00 Test Item Value Reference Range Interpretation Comments Ethanol Lvl (test code = Ethanol Lvl) no gt [facility] [id number] 15:08:00 Test Item Value Reference Range Interpretation Comments UA Ketones (test code Negative *NA*(02/17/15 = UA Ketones) 10:08 AM) [facility] AND [id number] 15:08:00 Test Item Value Reference Range Interpretation Comments UA Bili (test code = Negative *NA*(02/17/15 UA Bili) 10:08 AM) [facility] AND [id number] 15:08:00 Test Item Value Reference Range Interpretation Comments UA Urobilinogen (test code = UA 0.2 0.1-1.0 Urobilinogen) [facility] AND [id number] 15:08:00 Test Item Value Reference Range Interpretation Comments UA Blood (test code = Negative (02/17/15 10:08 UA Blood) AM) [facility] AND [id number] 15:08:00 Test Item Value Reference Range Interpretation Comments UA Nitrite (test code Negative (02/17/15 10:08 = UA Nitrite) AM) [facility] [id number] 15:08:00 Test Item Value Reference Range Interpretation Comments UA Leuk Est (test Negative (02/17/15 10:08 code = UA Leuk Est) AM) [facility] [id number] 15:08:00 Test Item Value Reference Range Interpretation Comments UA Spec Grav (test *NA*(02/17/15 10:08 AM) code = UA Spec Grav) [facility] [id number] 15:08:00 Test Item Value Reference Range Interpretation Comments UA Glucose (test code = UA Glucose) 100 mg/dL [facility] AND [id number] 15:08:00 Test Item Value Reference Range Interpretation Comments UA Protein (test code Negative (02/17/15 10:08 = UA Protein) AM) [facility] AND [id number] 15:08:00 Test Item Value Reference Range Interpretation Comments UA pH (test code = UA pH) 7.0 1 5.0-8.0 [facility] AND [id number] 15:08:00 Test Item Value Reference Range Interpretation Comments UA Color (test code = Yellow *NA*(02/17/15 UA Color) 10:08 AM) [facility] AND [id number] 15:08:00 Test Item Value Reference Range Interpretation Comments UA Turbidity (test code = Clear (02/17/15 10:08 UA Turbidity) AM) [facility] AND [id number] 15:08:00 Test Item Value Reference Range Interpretation Comments UA WBC (test code = UA None Seen (02/17/15 WBC) 10:08 AM) [facility] AND [id number] 15:08:00 Test Item Value Reference Range Interpretation Comments UA RBC (test None Seen See_Comment [Automated mes moises] code = UA RBC) (02/17/15 10:08 The system which AM) generated this result transmitted ref erence range: <=2. The reference range was not used to int erpret this result as normal/abnormal . [facility] AND [id number] 15:08:00 Test Item Value Reference Range Interpretation Comments UA Bacteria (test code = None Seen (02/17/15 UA Bacteria) 10:08 AM) [facility] AND [id number] 15:08:00 Test Item Value Reference Range Interpretation Comments UA Sq Epi (test code = None Seen (02/17/15 UA Sq Epi) 10:08 AM) [facility] [employer] [id number] 15:55:00 Test Item Value Reference Range Interpretation Comments eGFR (test code = eGFR) 68 [facility] [employer] [id number] 15:55:00 Test Item Value Reference Range Interpretation Comments Globulin (test code = Globulin) 3.3 2.0-4.0 [facility]2014-10-10 15:55:00 Test Item Value Reference Range Interpretation Comments A/G Ratio (test code = A/G Ratio) 1.0 0.7-1.6 [facility]2014-10-10 15:55:00 Test Item Value Reference Range Interpretation Comments Alk Phos (test code = Alk Phos) 43 39-136 [facility]2014-10-10 15:55:00 Test Item Value Reference Range Interpretation Comments Bili Total (test code = Bili Total) 0.3 0.2-1.3 [facility]2014-10-10 15:55:00 Test Item Value Reference Range Interpretation Comments B/C Ratio (test code = B/C Ratio) 17 6-25 [facility]2014-10-10 15:55:00 Test Item Value Reference Range Interpretation Comments AGAP (test code = AGAP) 10.8 10.0-20.0 [facility]2014-10-10 15:55:00 Test Item Value Reference Range Interpretation Comments Calcium Lvl (test code = Calcium Lvl) 9.3 8.5-10.5 [facility]2014-10-10 15:55:00 Test Item Value Reference Range Interpretation Comments Total Protein (test code = Total 6.7 6.4-8.4 Protein) [facility]2014-10-10 15:55:00 Test Item Value Reference Range Interpretation Comments Albumin Lvl (test code = Albumin Lvl) 3.4 3.5-5.0 [facility]2014-10-10 15:55:00 Test Item Value Reference Range Interpretation Comments ALT (test code = ALT) 22 See_Comment [Auto mated message] The system which ge nerated this result transmit stuart reference range : <=65. The reference range was not used to interpr et this result as cherry l/abnormal. [facility]2014-10-10 15:55:00 Test Item Value Reference Range Interpretation Comments AST (test code = AST) 15 See_Comment [Auto mated message] The system which ge nerated this result transmit stuart reference range : <=37. The reference range was not used to interpr et this result as cherry l/abnormal. [facility]2014-10-10 15:55:00 Test Item Value Reference Range Interpretation Comments CO2 (test code = CO2) 36 24-32 [facility]2014-10-10 15:55:00 Test Item Value Reference Range Interpretation Comments Glucose Lvl (test code = Glucose Lvl) 301 70-99 [facility]2014-10-10 15:55:00 Test Item Value Reference Range Interpretation Comments BUN (test code = BUN) 19 7-22 [facility]2014-10-10 15:55:00 Test Item Value Reference Range Interpretation Comments Sodium Lvl (test code = Sodium Lvl) 137 135-145 [facility]2014-10-10 15:55:00 Test Item Value Reference Range Interpretation Comments Creatinine Lvl (test code = Creatinine 1.1 0.5-1.4 Lvl) [facility]2014-10-10 15:55:00 Test Item Value Reference Range Interpretation Comments Potassium Lvl (test code = Potassium 4.8 3.5-5.1 Lvl) [facility]2014-10-10 15:55:00 Test Item Value Reference Range Interpretation Comments Chloride Lvl (test code = Chloride Lvl) 95 95-109 [facility] HospitalYwlqieiNLEBUDSVXK2124-19-42 15:55:00 Test Item Value Reference Range Interpretation Comments MCH (test code = MCH) 31.6 pg 27.0-31.0 [facility] HospitalPzcgmdoBKJFOMEGEA4896-66-30 15:55:00 Test Item Value Reference Range Interpretation Comments MCHC (test code = MCHC) 34.5 32.0-36.0 [facility] HospitalWubbtktZDRWQNHPWY2394-74-82 15:55:00 Test Item Value Reference Range Interpretation Comments MCV (test code = MCV) 91.6 80.0-94.0 [facility] HospitalOxlrxvoCPGBCTWZHD9553-75-80 15:55:00 Test Item Value Reference Range Interpretation Comments Hct (test code = Hct) 41.8 42.0-54.0 [facility] HospitalTclaqnqHPJCCKMXRH0633-09-71 15:55:00 Test Item Value Reference Range Interpretation Comments Platelet (test code = Platelet) 187 133-450 [facility] HospitalDsagsegHKCZGIPGTX3753-09-34 15:55:00 Test Item Value Reference Range Interpretation Comments MPV (test code = MPV) 10.2 7.4-10.4 [facility] HospitalKclowivMLWHOUMFXN1239-50-89 15:55:00 Test Item Value Reference Range Interpretation Comments RDW (test code = RDW) 14.1 11.5-14.5 [facility] HospitalUcuhilkWWEKPYZRNS4803-74-63 15:55:00 Test Item Value Reference Range Interpretation Comments RBC (test code = RBC) 4.56 4.70-6.10 [facility] HospitalEuxxafrLVKBRYOIAC7798-84-35 15:55:00 Test Item Value Reference Range Interpretation Comments Hgb (test code = Hgb) 14.4 14.0-18.0 [id number] 15:55:00 Test Item Value Reference Range Interpretation Comments WBC (test code = WBC) 14.8 3.7-10.4 [facility]2014-10-10 15:55:00 Test Item Value Reference Range Interpretation Comments eGFR (test code = eGFR) 68 [facility]2014-10-10 15:55:00 Test Item Value Reference Range Interpretation Comments Globulin (test code = Globulin) 3.3 2.0-4.0 [facility]2014-10-10 15:55:00 Test Item Value Reference Range Interpretation Comments A/G Ratio (test code = A/G Ratio) 1.0 0.7-1.6 [facility]2014-10-10 15:55:00 Test Item Value Reference Range Interpretation Comments Alk Phos (test code = Alk Phos) 43 39-136 [facility]2014-10-10 15:55:00 Test Item Value Reference Range Interpretation Comments Bili Total (test code = Bili Total) 0.3 0.2-1.3 [facility]2014-10-10 15:55:00 Test Item Value Reference Range Interpretation Comments B/C Ratio (test code = B/C Ratio) 17 6-25 [facility]2014-10-10 15:55:00 Test Item Value Reference Range Interpretation Comments AGAP (test code = AGAP) 10.8 10.0-20.0 [facility]2014-10-10 15:55:00 Test Item Value Reference Range Interpretation Comments Calcium Lvl (test code = Calcium Lvl) 9.3 8.5-10.5 [facility]2014-10-10 15:55:00 Test Item Value Reference Range Interpretation Comments Total Protein (test code = Total 6.7 6.4-8.4 Protein) [facility]2014-10-10 15:55:00 Test Item Value Reference Range Interpretation Comments Albumin Lvl (test code = Albumin Lvl) 3.4 3.5-5.0 [facility]2014-10-10 15:55:00 Test Item Value Reference Range Interpretation Comments ALT (test code = ALT) 22 See_Comment [Auto mated message] The system which ge nerated this result transmit stuart reference range : <=65. The reference range was not used to interpr et this result as cherry l/abnormal. [facility]2014-10-10 15:55:00 Test Item Value Reference Range Interpretation Comments AST (test code = AST) 15 See_Comment [Auto mated message] The system which ge nerated this result transmit stuart reference range : <=37. The reference range was not used to interpr et this result as cherry l/abnormal. [facility]2014-10-10 15:55:00 Test Item Value Reference Range Interpretation Comments CO2 (test code = CO2) 36 24-32 [facility]2014-10-10 15:55:00 Test Item Value Reference Range Interpretation Comments Glucose Lvl (test code = Glucose Lvl) 301 70-99 [facility]2014-10-10 15:55:00 Test Item Value Reference Range Interpretation Comments BUN (test code = BUN) 19 7-22 [facility]2014-10-10 15:55:00 Test Item Value Reference Range Interpretation Comments Sodium Lvl (test code = Sodium Lvl) 137 135-145 [facility]2014-10-10 15:55:00 Test Item Value Reference Range Interpretation Comments Creatinine Lvl (test code = Creatinine 1.1 0.5-1.4 Lvl) [facility]2014-10-10 15:55:00 Test Item Value Reference Range Interpretation Comments Potassium Lvl (test code = Potassium 4.8 3.5-5.1 Lvl) [facility]2014-10-10 15:55:00 Test Item Value Reference Range Interpretation Comments Chloride Lvl (test code = Chloride Lvl) 95 95-109 [facility] Hospit[id number] 15:55:00 Test Item Value Reference Range Interpretation Comments MCH (test code = MCH) 31.6 pg 27.0-31.0 [facility] HospitalEpekmxhTCGWGWPVVP7387-26-13 15:55:00 Test Item Value Reference Range Interpretation Comments MCHC (test code = MCHC) 34.5 32.0-36.0 [facility] Hospit[id number] 15:55:00 Test Item Value Reference Range Interpretation Comments MCV (test code = MCV) 91.6 80.0-94.0 [facility] HospitalCjnangkRTVTIPFTSQ9908-99-62 15:55:00 Test Item Value Reference Range Interpretation Comments Hct (test code = Hct) 41.8 42.0-54.0 [facility] H[id number] 15:55:00 Test Item Value Reference Range Interpretation Comments Platelet (test code = Platelet) 187 133-450 [facility] [id number] 15:55:00 Test Item Value Reference Range Interpretation Comments MPV (test code = MPV) 10.2 7.4-10.4 [facility] Hos[id number] 15:55:00 Test Item Value Reference Range Interpretation Comments RDW (test code = RDW) 14.1 11.5-14.5 [facility] Hospit[id number] 15:55:00 Test Item Value Reference Range Interpretation Comments RBC (test code = RBC) 4.56 4.70-6.10 [facility] HospitalJkvogmqZNXETRWSNJ5140-35-12 15:55:00 Test Item Value Reference Range Interpretation Comments Hgb (test code = Hgb) 14.4 14.0-18.0 [facility] Ho[id number] 15:55:00 Test Item Value Reference Range Interpretation Comments WBC (test code = WBC) 14.8 3.7-10.4 [facility]2014-10-10 15:55:00 Test Item Value Reference Range Interpretation Comments eGFR (test code = eGFR) 68 [facility]2014-10-10 15:55:00 Test Item Value Reference Range Interpretation Comments Globulin (test code = Globulin) 3.3 2.0-4.0 [facility]2014-10-10 15:55:00 Test Item Value Reference Range Interpretation Comments A/G Ratio (test code = A/G Ratio) 1.0 0.7-1.6 [facility]2014-10-10 15:55:00 Test Item Value Reference Range Interpretation Comments Alk Phos (test code = Alk Phos) 43 39-136 [facility]2014-10-10 15:55:00 Test Item Value Reference Range Interpretation Comments Bili Total (test code = Bili Total) 0.3 0.2-1.3 [facility]2014-10-10 15:55:00 Test Item Value Reference Range Interpretation Comments B/C Ratio (test code = B/C Ratio) 17 6-25 [facility]2014-10-10 15:55:00 Test Item Value Reference Range Interpretation Comments AGAP (test code = AGAP) 10.8 10.0-20.0 [facility]2014-10-10 15:55:00 Test Item Value Reference Range Interpretation Comments Calcium Lvl (test code = Calcium Lvl) 9.3 8.5-10.5 [facility]2014-10-10 15:55:00 Test Item Value Reference Range Interpretation Comments Total Protein (test code = Total 6.7 6.4-8.4 Protein) [facility]2014-10-10 15:55:00 Test Item Value Reference Range Interpretation Comments Albumin Lvl (test code = Albumin Lvl) 3.4 3.5-5.0 [facility]2014-10-10 15:55:00 Test Item Value Reference Range Interpretation Comments ALT (test code = ALT) 22 See_Comment [Auto mated message] The system which ge nerated this result transmit stuart reference range : <=65. The reference range was not used to interpr et this result as cherry l/abnormal. [facility]2014-10-10 15:55:00 Test Item Value Reference Range Interpretation Comments AST (test code = AST) 15 See_Comment [Auto mated message] The system which ge nerated this result transmit stuart reference range : <=37. The reference range was not used to interpr et this result as cherry l/abnormal. [facility]2014-10-10 15:55:00 Test Item Value Reference Range Interpretation Comments CO2 (test code = CO2) 36 24-32 [facility]2014-10-10 15:55:00 Test Item Value Reference Range Interpretation Comments Glucose Lvl (test code = Glucose Lvl) 301 70-99 [facility]2014-10-10 15:55:00 Test Item Value Reference Range Interpretation Comments BUN (test code = BUN) 19 7-22 [facility]2014-10-10 15:55:00 Test Item Value Reference Range Interpretation Comments Sodium Lvl (test code = Sodium Lvl) 137 135-145 [facility]2014-10-10 15:55:00 Test Item Value Reference Range Interpretation Comments Creatinine Lvl (test code = Creatinine 1.1 0.5-1.4 Lvl) [facility]2014-10-10 15:55:00 Test Item Value Reference Range Interpretation Comments Potassium Lvl (test code = Potassium 4.8 3.5-5.1 Lvl) [facility]2014-10-10 15:55:00 Test Item Value Reference Range Interpretation Comments Chloride Lvl (test code = Chloride Lvl) 95 95-109 [facility] HospitalG[id number] 15:55:00 Test Item Value Reference Range Interpretation Comments MCH (test code = MCH) 31.6 pg 27.0-31.0 [facility] HospitalPwrztkkKFJSDKILJI7918-51-63 15:55:00 Test Item Value Reference Range Interpretation Comments MCHC (test code = MCHC) 34.5 32.0-36.0 [facility] Ho[id number] 15:55:00 Test Item Value Reference Range Interpretation Comments MCV (test code = MCV) 91.6 80.0-94.0 [facility] HospitalEffslozMZBUOTEERD0069-12-18 15:55:00 Test Item Value Reference Range Interpretation Comments Hct (test code = Hct) 41.8 42.0-54.0 [facility] HospitalRxjuiexINOKLFOGEJ0330-20-73 15:55:00 Test Item Value Reference Range Interpretation Comments Platelet (test code = Platelet) 187 133-450 [facility] Hospit[id number] 15:55:00 Test Item Value Reference Range Interpretation Comments MPV (test code = MPV) 10.2 7.4-10.4 [facility] Hos[id number] 15:55:00 Test Item Value Reference Range Interpretation Comments RDW (test code = RDW) 14.1 11.5-14.5 [facility]IbfzjnzZDKKTGDARC4458-21-03 15:55:00 Test Item Value Reference Range Interpretation Comments RBC (test code = RBC) 4.56 4.70-6.10 [facility] HospitalLbsuiibHCIJFEXXZY2887-55-65 15:55:00 Test Item Value Reference Range Interpretation Comments Hgb (test code = Hgb) 14.4 14.0-18.0 [facility] HospitalVqurrasIMMHSLVJBR5883-18-74 15:55:00 Test Item Value Reference Range Interpretation Comments WBC (test code = WBC) 14.8 3.7-10.4 [facility]159[facility]LA[facility] [id number] 14:28:00 Test Item Value Reference Range Interpretation Comments Total CK (test code = Total CK) [facility] [id number] 14:28:00 Test Item Value Reference Range Interpretation Comments Troponin-I (test code no gt See_Comment [Auto mated message] The = Troponin-I) system which g enerated this result transmit stuart reference range : <=0.40. The reference r jose alfredo was not used to interpr et this result as cherry l/abnormal. [facility] [id number] 14:28:00 Test Item Value Reference Range Interpretation Comments Total CK (test code = Total CK) [facility] [id number] 14:28:00 Test Item Value Reference Range Interpretation Comments Troponin-I (test code no gt See_Comment [Auto mated message] The = Troponin-I) system which g enerated this result transmit stuart reference range : <=0.40. The reference r jose alfredo was not used to interpr et this result as cherry l/abnormal. [facility]159.[facility]LA[facility] [id number] 14:28:00 Test Item Value Reference Range Interpretation Comments Total CK (test code = Total CK) [facility] [id number] 14:28:00 Test Item Value Reference Range Interpretation Comments Troponin-I (test code no gt See_Comment [Auto mated message] The = Troponin-I) system which g enerated this result transmit stuart reference range : <=0.40. The reference r jose alfredo was not used to interpr et this result as cherry l/abnormal. [facility] CenterFirmafon [id number] 09:10:00 Test Item Value Reference Range Interpretation Comments BNP (test code = BNP) 13 [facility] [id number] 09:10:00 Test Item Value Reference Range Interpretation Comments Total CK (test code = Total CK) 65 12-191 [facility]159.[facility]LA[facility] [id number] 09:10:00 Test Item Value Reference Range Interpretation Comments Troponin-I (test code no gt See_Comment [Auto mated message] The = Troponin-I) system which g enerated this result transmit stuart reference range : <=0.40. The reference r jose alfredo was not used to interpr et this result as cherry l/abnormal. [facility] District[facility] Monkey [id number] 09:10:00 Test Item Value Reference Range Interpretation Comments eGFR (test code = eGFR) 76 [facility] [id number] 09:10:00 Test Item Value Reference Range Interpretation Comments Creatinine Lvl (test code = Creatinine 1.0 0.5-1.4 Lvl) [facility] [id number] 09:10:00 Test Item Value Reference Range Interpretation Comments PTT (test code = PTT) 29.8 s 22.9-35.8 [facility] D[id number] 09:10:00 Test Item Value Reference Range Interpretation Comments Platelet (test code = Platelet) 174 133-450 [facility] CenterRovio [id number] 09:10:00 Test Item Value Reference Range Interpretation Comments BNP (test code = BNP) 13 [facility] DistrictSpearFysh2014-10-09 09:10:00 Test Item Value Reference Range Interpretation Comments Total CK (test code = Total CK) 65 12-191 [facility] CenterRovio EntertainmentUBBZAVV4090-31-98 09:10:00 Test Item Value Reference Range Interpretation Comments Troponin-I (test code no gt See_Comment [Auto mated message] The = Troponin-I) system which g enerated this result transmit stuart reference range : <=0.40. The reference r jose alfredo was not used to interpr et this result as cherry l/abnormal. [facility] [employer]2014-10-09 09:10:00 Test Item Value Reference Range Interpretation Comments eGFR (test code = eGFR) 76 [facility]2014-10-09 09:10:00 Test Item Value Reference Range Interpretation Comments Creatinine Lvl (test code = Creatinine 1.0 0.5-1.4 Lvl) [facility] Hos[id number] 09:10:00 Test Item Value Reference Range Interpretation Comments PTT (test code = PTT) 29.8 s 22.9-35.8 [facility] HospitalTjpnrdnSBSJPKXXUX1211-03-72 09:10:00 Test Item Value Reference Range Interpretation Comments Platelet (test code = Platelet) 174 133-450 [facility] [id number] 09:10:00 Test Item Value Reference Range Interpretation Comments BNP (test code = BNP) 13 [facility] [id number] 09:10:00 Test Item Value Reference Range Interpretation Comments Total CK (test code = Total CK) 65 12-191 [facility] [id number] 09:10:00 Test Item Value Reference Range Interpretation Comments Troponin-I (test code no gt See_Comment [Auto mated message] The = Troponin-I) system which g enerated this result transmit stuart reference range : <=0.40. The reference r jose alfredo was not used to interpr et this result as cherry l/abnormal. [facility]2014-10-09 09:10:00 Test Item Value Reference Range Interpretation Comments eGFR (test code = eGFR) 76 [facility]2014-10-09 09:10:00 Test Item Value Reference Range Interpretation Comments Creatinine Lvl (test code = Creatinine 1.0 0.5-1.4 Lvl) [facility] Hos[id number] 09:10:00 Test Item Value Reference Range Interpretation Comments PTT (test code = PTT) 29.8 s 22.9-35.8 [facility] Hospit[id number] 09:10:00 Test Item Value Reference Range Interpretation Comments Platelet (test code = Platelet) 174 133-450 [facility] AND [id number] 02:15:29 Test Item Value Reference Range Interpretation Comments UA Color (test code = Yellow *NA*(06/08/14 UA Color) 9:15 PM) [facility] AND [id number] 02:15:29 Test Item Value Reference Range Interpretation Comments UA Leuk Est (test Negative (06/08/14 9:15 code = UA Leuk Est) PM) [facility] AND [id number] 02:15:29 Test Item Value Reference Range Interpretation Comments UA Nitrite (test code Negative (06/08/14 9:15 = UA Nitrite) PM) [facility] AND [id number] 02:15:29 Test Item Value Reference Range Interpretation Comments UA Urobilinogen (test code = UA 0.2 0.1-1.0 Urobilinogen) [facility] AND [id number] 02:15:29 Test Item Value Reference Range Interpretation Comments UA Glucose (test code Negative (06/08/14 9:15 = UA Glucose) PM) [facility] AND [id number] 02:15:29 Test Item Value Reference Range Interpretation Comments UA Protein (test code = Trace *ABN*(06/08/14 UA Protein) 9:15 PM) [facility] AND [id number] 02:15:29 Test Item Value Reference Range Interpretation Comments UA pH (test code = UA pH) 6.0 1 5.0-8.0 [facility] AND [id number] 02:15:29 Test Item Value Reference Range Interpretation Comments UA Spec Grav (test >=1.030 *ABN*(06/08/14 code = UA Spec Grav) 9:15 PM) [facility] AND [id number] 02:15:29 Test Item Value Reference Range Interpretation Comments UA Ketones (test code Negative *NA*(06/08/14 = UA Ketones) 9:15 PM) [facility] AND [id number] 02:15:29 Test Item Value Reference Range Interpretation Comments UA Bili (test code = Negative *NA*(06/08/14 UA Bili) 9:15 PM) [facility] AND [id number] 02:15:29 Test Item Value Reference Range Interpretation Comments UA Turbidity (test code = Clear (06/08/14 9:15 UA Turbidity) PM) [facility] AND [id number] 02:15:29 Test Item Value Reference Range Interpretation Comments UA Blood (test code = Negative (06/08/14 9:15 UA Blood) PM) [facility] AND [id number] 02:15:29 Test Item Value Reference Range Interpretation Comments UA WBC (test code = UA WBC) 0-2 /HPF [facility] AND [id number] 02:15:29 Test Item Value Reference Range Interpretation Comments UA Mucus (test code = UA Mucus) Rare /LPF [facility] AND [id number] 02:15:29 Test Item Value Reference Range Interpretation Comments UA Sq Epi (test code = UA Sq Epi) Rare /LPF [facility] AND [id number] 02:15:29 Test Item Value Reference Range Interpretation Comments UA RBC (test code = 0-2 /HPF See_Comment [Automa stuart message] The UA RBC) system which ge nerated this result tra nsmitted reference range : <=2. The reference range was not used to interpr et this result as cherry l/abnormal. [facility] AND [id number] 02:15:29 Test Item Value Reference Range Interpretation Comments UA Fine Gran (test code = UA Fine 0-2 /LPF Gran) [facility] AND [id number] 02:15:29 Test Item Value Reference Range Interpretation Comments UA Color (test code = Yellow *NA*(06/08/14 UA Color) 9:15 PM) [facility] AND [id number] 02:15:29 Test Item Value Reference Range Interpretation Comments UA Leuk Est (test Negative (06/08/14 9:15 code = UA Leuk Est) PM) [facility] AND [id number] 02:15:29 Test Item Value Reference Range Interpretation Comments UA Nitrite (test code Negative (06/08/14 9:15 = UA Nitrite) PM) [facility] AND [id number] 02:15:29 Test Item Value Reference Range Interpretation Comments UA Urobilinogen (test code = UA 0.2 0.1-1.0 Urobilinogen) [facility] AND [id number] 02:15:29 Test Item Value Reference Range Interpretation Comments UA Glucose (test code Negative (06/08/14 9:15 = UA Glucose) PM) [facility] AND [id number] 02:15:29 Test Item Value Reference Range Interpretation Comments UA Protein (test code = Trace *ABN*(06/08/14 UA Protein) 9:15 PM) [facility] AND [id number] 02:15:29 Test Item Value Reference Range Interpretation Comments UA pH (test code = UA pH) 6.0 1 5.0-8.0 [facility] AND [id number] 02:15:29 Test Item Value Reference Range Interpretation Comments UA Spec Grav (test >=1.030 *ABN*(06/08/14 code = UA Spec Grav) 9:15 PM) [facility] AND [id number] 02:15:29 Test Item Value Reference Range Interpretation Comments UA Ketones (test code Negative *NA*(06/08/14 = UA Ketones) 9:15 PM) [facility] AND [id number] 02:15:29 Test Item Value Reference Range Interpretation Comments UA Bili (test code = Negative *NA*(06/08/14 UA Bili) 9:15 PM) [facility] AND [id number] 02:15:29 Test Item Value Reference Range Interpretation Comments UA Turbidity (test code = Clear (06/08/14 9:15 UA Turbidity) PM) [facility] AND [id number] 02:15:29 Test Item Value Reference Range Interpretation Comments UA Blood (test code = Negative (06/08/14 9:15 UA Blood) PM) [facility] AND [id number] 02:15:29 Test Item Value Reference Range Interpretation Comments UA WBC (test code = UA WBC) 0-2 /HPF [facility] AND [id number] 02:15:29 Test Item Value Reference Range Interpretation Comments UA Mucus (test code = UA Mucus) Rare /LPF [facility] AND [id number] 02:15:29 Test Item Value Reference Range Interpretation Comments UA Sq Epi (test code = UA Sq Epi) Rare /LPF [facility] AND [id number] 02:15:29 Test Item Value Reference Range Interpretation Comments UA RBC (test code = 0-2 /HPF See_Comment [Automa stuart message] The UA RBC) system which ge nerated this result tra nsmitted reference range : <=2. The reference range was not used to interpr et this result as cherry l/abnormal. [facility] AND [id number] 02:15:29 Test Item Value Reference Range Interpretation Comments UA Fine Gran (test code = UA Fine 0-2 /LPF Gran) [facility] AND [id number] 02:15:29 Test Item Value Reference Range Interpretation Comments UA Color (test code = Yellow *NA*(06/08/14 UA Color) 9:15 PM) [facility] AND [id number] 02:15:29 Test Item Value Reference Range Interpretation Comments UA Leuk Est (test Negative (06/08/14 9:15 code = UA Leuk Est) PM) [facility] AND [id number] 02:15:29 Test Item Value Reference Range Interpretation Comments UA Nitrite (test code Negative (06/08/14 9:15 = UA Nitrite) PM) [facility] AND [id number] 02:15:29 Test Item Value Reference Range Interpretation Comments UA Urobilinogen (test code = UA 0.2 0.1-1.0 Urobilinogen) [facility] AND [id number] 02:15:29 Test Item Value Reference Range Interpretation Comments UA Glucose (test code Negative (06/08/14 9:15 = UA Glucose) PM) [facility] AND [id number] 02:15:29 Test Item Value Reference Range Interpretation Comments UA Protein (test code = Trace *ABN*(06/08/14 UA Protein) 9:15 PM) [facility] AND [id number] 02:15:29 Test Item Value Reference Range Interpretation Comments UA pH (test code = UA pH) 6.0 1 5.0-8.0 [facility] AND [id number] 02:15:29 Test Item Value Reference Range Interpretation Comments UA Spec Grav (test >=1.030 *ABN*(06/08/14 code = UA Spec Grav) 9:15 PM) [facility] AND [id number] 02:15:29 Test Item Value Reference Range Interpretation Comments UA Ketones (test code Negative *NA*(06/08/14 = UA Ketones) 9:15 PM) [facility] AND [id number] 02:15:29 Test Item Value Reference Range Interpretation Comments UA Bili (test code = Negative *NA*(06/08/14 UA Bili) 9:15 PM) [facility] AND [id number] 02:15:29 Test Item Value Reference Range Interpretation Comments UA Turbidity (test code = Clear (06/08/14 9:15 UA Turbidity) PM) [facility] AND [id number] 02:15:29 Test Item Value Reference Range Interpretation Comments UA Blood (test code = Negative (06/08/14 9:15 UA Blood) PM) [facility] AND [id number] 02:15:29 Test Item Value Reference Range Interpretation Comments UA WBC (test code = UA WBC) 0-2 /HPF [facility] AND [id number] 02:15:29 Test Item Value Reference Range Interpretation Comments UA Mucus (test code = UA Mucus) Rare /LPF [facility] AND [id number] 02:15:29 Test Item Value Reference Range Interpretation Comments UA Sq Epi (test code = UA Sq Epi) Rare /LPF [facility] AND [id number] 02:15:29 Test Item Value Reference Range Interpretation Comments UA RBC (test code = 0-2 /HPF See_Comment [Automa stuart message] The UA RBC) system which ge nerated this result tra nsmitted reference range : <=2. The reference range was not used to interpr et this result as cherry l/abnormal. [facility] AND [id number] 02:15:29 Test Item Value Reference Range Interpretation Comments UA Fine Gran (test code = UA Fine 0-2 /LPF Gran) [facility] [id number] 01:45:14 Test Item Value Reference Range Interpretation Comments CK MB (test code = CK MB) 1.3 0.5-3.6 [facility] [id number] 01:45:14 Test Item Value Reference Range Interpretation Comments Total CK (test code = Total CK) 93 12-191 [facility] [id number] 01:45:14 Test Item Value Reference Range Interpretation Comments Troponin-I (test code no gt See_Comment [Auto mated message] The = Troponin-I) system which g enerated this result transmit stuart reference range : <=0.40. The reference r jose alfredo was not used to interpr et this result as cherry l/abnormal. [employer]2014-10-09 01:45:14 Test Item Value Reference Range Interpretation Comments BNP (test code = BNP) 18 [facility] Abril2014-10-09 01:45:14 Test Item Value Reference Range Interpretation Comments CK MB Index (test 1.4 See_Comment [Automate d message] The code = CK MB Index) system w [employer] generated this result transmit stuart reference range : <=2.5. The reference range was not used to interpr et this result as cherry l/abnormal. [email or web address] 01:45:14 Test Item Value Reference Range Interpretation Comments eGFR (test code = eGFR) 68 [facility] Abril2014-10-09 01:45:14 Test Item Value Reference Range Interpretation Comments CK MB (test code = CK MB) 1.3 0.5-3.6 [facility] Abril2014-10-09 01:45:14 Test Item Value Reference Range Interpretation Comments Total CK (test code = Total CK) 93 12-191 [facility] Abril2014-10-09 01:45:14 Test Item Value Reference Range Interpretation Comments Troponin-I (test code no gt See_Comment [Auto mated message] The = Troponin-I) system which g enerated this result transmit stuart reference range : <=0.40. The reference r jose alfredo was not used to interpr et this result as cherry l/abnormal. [employer]2014-10-09 01:45:14 Test Item Value Reference Range Interpretation Comments BNP (test code = BNP) 18 [facility] Abril2014-10-09 01:45:14 Test Item Value Reference Range Interpretation Comments CK MB Index (test 1.4 See_Comment [Automate d message] The code = CK MB Index) system w [employer] generated this result transmit stuart reference range : <=2.5. The reference range was not used to interpr et this result as cherry l/abnormal. [email or web address] 01:45:14 Test Item Value Reference Range Interpretation Comments eGFR (test code = eGFR) 68 [employer] [id number] 01:45:14 Test Item Value Reference Range Interpretation Comments CK MB (test code = CK MB) 1.3 0.5-3.6 [facility] [id number] 01:45:14 Test Item Value Reference Range Interpretation Comments Total CK (test code = Total CK) 93 12-191 [facility] CenterRovio EntertainmentOKKINRZ5305-46-79 01:45:14 Test Item Value Reference Range Interpretation Comments Troponin-I (test code no gt See_Comment [Auto mated message] The = Troponin-I) system which g enerated this result transmit stuart reference range : <=0.40. The reference r jose alfredo was not used to interpr et this result as cherry l/abnormal. [facility] [id number] 01:45:14 Test Item Value Reference Range Interpretation Comments BNP (test code = BNP) 18 [facility] CenterFirmafon [id number] 01:45:14 Test Item Value Reference Range Interpretation Comments CK MB Index (test 1.4 See_Comment [Automate d message] The code = CK MB Index) system w [facility] generated this result transmit stuart reference range : <=2.5. The reference range was not used to interpr et this result as cherry l/abnormal. [facility] [id number] 01:45:14 Test Item Value Reference Range Interpretation Comments eGFR (test code = eGFR) 68 [facility] DistrictPifxpodNZFANNQDZM5402-15-88 01:25:19 Test Item Value Reference Range Interpretation Comments INR (test code = INR) 0.90 0.85-1.17 [facility] GlzcjqkFVKWSTDUZE7251-22-85 01:25:19 Test Item Value Reference Range Interpretation Comments PTT (test code = PTT) 28.6 s 22.9-35.8 [facility] UrvzwmqOVKVPYKXVP1273-78-48 01:25:19 Test Item Value Reference Range Interpretation Comments PT (test code = PT) 12.1 s 12.0-14.7 [facility] DistrictDgownurDQGOWRQXVP9060-51-27 01:25:19 Test Item Value Reference Range Interpretation Comments INR (test code = INR) 0.90 0.85-1.17 [facility] UuctgwsGREHNFKADX8026-73-50 01:25:19 Test Item Value Reference Range Interpretation Comments PTT (test code = PTT) 28.6 s 22.9-35.8 [facility] HospitalUlojmiaMHRVCKKVLN4238-32-86 01:25:19 Test Item Value Reference Range Interpretation Comments PT (test code = PT) 12.1 s 12.0-14.7 [facility] HospitalLhroqdmLNLMFUUYPP3404-40-69 01:25:19 Test Item Value Reference Range Interpretation Comments INR (test code = INR) 0.90 0.85-1.17 [facility] HospitalDwmdpyaQLTRILINGX0755-02-96 01:25:19 Test Item Value Reference Range Interpretation Comments PTT (test code = PTT) 28.6 s 22.9-35.8 [facility] HospitalZexruypSUWKQHCLYJ6959-13-12 01:25:19 Test Item Value Reference Range Interpretation Comments PT (test code = PT) 12.1 s 12.0-14.7 [place] [id number] 01:25:00 Test Item Value Reference Range Interpretation Comments ALT (test code = ALT) 29 See_Comment [Auto mated message] The system which ge nerated this result transmit stuart reference range : <=65. The reference range was not used to interpr et this result as cherry l/abnormal. [facility]2014-10-09 01:25:00 Test Item Value Reference Range Interpretation Comments A/G Ratio (test code = A/G Ratio) 0.9 0.7-1.6 [place] [id number] 01:25:00 Test Item Value Reference Range Interpretation Comments Alk Phos (test code = Alk Phos) 53 39-136 [facility]2014-10-09 01:25:00 Test Item Value Reference Range Interpretation Comments AST (test code = AST) 24 See_Comment [Auto mated message] The system which ge nerated this result transmit stuart reference range : <=37. The reference range was not used to interpr et this result as cherry l/abnormal. [facility]2014-10-09 01:25:00 Test Item Value Reference Range Interpretation Comments Bili Total (test code = Bili Total) 0.5 0.2-1.3 [facility]2014-10-09 01:25:00 Test Item Value Reference Range Interpretation Comments B/C Ratio (test code = B/C Ratio) 18 6-25 [facility]2014-10-09 01:25:00 Test Item Value Reference Range Interpretation Comments Globulin (test code = Globulin) 4.0 2.0-4.0 [facility]2014-10-09 01:25:00 Test Item Value Reference Range Interpretation Comments Total Protein (test code = Total 7.5 6.4-8.4 Protein) [facility]2014-10-09 01:25:00 Test Item Value Reference Range Interpretation Comments Albumin Lvl (test code = Albumin Lvl) 3.5 3.5-5.0 [facility]2014-10-09 01:25:00 Test Item Value Reference Range Interpretation Comments Potassium Lvl (test code = Potassium 4.5 3.5-5.1 Lvl) [facility]2014-10-09 01:25:00 Test Item Value Reference Range Interpretation Comments CO2 (test code = CO2) 41 24-32 [facility]2014-10-09 01:25:00 Test Item Value Reference Range Interpretation Comments Chloride Lvl (test code = Chloride Lvl) 96 95-109 [facility]2014-10-09 01:25:00 Test Item Value Reference Range Interpretation Comments Calcium Lvl (test code = Calcium Lvl) 9.2 8.5-10.5 [facility]2014-10-09 01:25:00 Test Item Value Reference Range Interpretation Comments AGAP (test code = AGAP) 6.5 10.0-20.0 [facility]2014-10-09 01:25:00 Test Item Value Reference Range Interpretation Comments Sodium Lvl (test code = Sodium Lvl) 139 135-145 [facility]2014-10-09 01:25:00 Test Item Value Reference Range Interpretation Comments Creatinine Lvl (test code = Creatinine 1.1 0.5-1.4 Lvl) [facility]2014-10-09 01:25:00 Test Item Value Reference Range Interpretation Comments BUN (test code = BUN) 20 7-22 [facility]2014-10-09 01:25:00 Test Item Value Reference Range Interpretation Comments Glucose Lvl (test code = Glucose Lvl) 199 70-99 [facility] HospitalQekkjusMBCTNAFTXG7787-84-55 01:25:00 Test Item Value Reference Range Interpretation Comments MCV (test code = MCV) 90.8 80.0-94.0 [facility] HospitalRfzwlyfVXNWVXWGGR2862-46-95 01:25:00 Test Item Value Reference Range Interpretation Comments Hct (test code = Hct) 45.4 42.0-54.0 [facility] HospitalFxmjqrpUAUJPCRVVU4834-93-28 01:25:00 Test Item Value Reference Range Interpretation Comments MCH (test code = MCH) 31.6 pg 27.0-31.0 [facility] HospitalDpndojfSLUEQDJDMR3732-85-25 01:25:00 Test Item Value Reference Range Interpretation Comments RBC (test code = RBC) 5.00 4.70-6.10 [facility] HospitalSfrjiwkKPRKEKNWET8603-86-70 01:25:00 Test Item Value Reference Range Interpretation Comments Hgb (test code = Hgb) 15.8 14.0-18.0 [facility] HospitalHuzoiygTLZFCUNHUY2323-07-56 01:25:00 Test Item Value Reference Range Interpretation Comments WBC (test code = WBC) 8.5 3.7-10.4 [facility] HospitalPwzvsjyINPWJPKZYZ0201-89-21 01:25:00 Test Item Value Reference Range Interpretation Comments MCHC (test code = MCHC) 34.8 32.0-36.0 [facility] HospitalKbpwdkkGAWTIZEODI4501-61-44 01:25:00 Test Item Value Reference Range Interpretation Comments Platelet (test code = Platelet) 186 133-450 [facility] HospitalYgmfftlYAWVPCJFJM3418-62-61 01:25:00 Test Item Value Reference Range Interpretation Comments RDW (test code = RDW) 14.1 11.5-14.5 [facility] HospitalHcyevxsIOIXBHNTEA7711-29-53 01:25:00 Test Item Value Reference Range Interpretation Comments MPV (test code = MPV) 9.6 7.4-10.4 [facility] HospitalKbnelqpOTLVOSRDFO5922-87-45 01:25:00 Test Item Value Reference Range Interpretation Comments Eosinophils # (test code 0.3 See_Comment [A utomated message] The = Eosinophils #) system whic h generated this result tra nsmitted reference range : <=0.5. The reference r jose alfredo was not used to int erpret this result as normal/abnormal . [facility] HospitalTxfqjaiSHAUAGHCEH7273-94-25 01:25:00 Test Item Value Reference Range Interpretation Comments Basophils # (test code 0.1 See_Comment [Aut omated message] The = Basophils #) system which generated this result tra nsmitted reference range : <=0.2. The reference r jose alfredo was not used to int erpret this result as normal/abnormal . [facility] HospitalMjflldkMBBQOIVAVM4492-96-35 01:25:00 Test Item Value Reference Range Interpretation Comments Monocytes # (test code 1.1 See_Comment [Aut omated message] The = Monocytes #) system which generated this result tra nsmitted reference range : <=0.8. The reference r jose alfredo was not used to int erpret this result as normal/abnormal . [facility] HospitalQvyiatzDEUORIEPKM8624-61-94 01:25:00 Test Item Value Reference Range Interpretation Comments Segs (test code = Segs) 62.9 45.0-75.0 [facility] HospitalXrvgvnvVDNPOXPCXF3701-41-43 01:25:00 Test Item Value Reference Range Interpretation Comments Lymphocytes # (test code = Lymphocytes 1.7 1.0-5.5 #) [facility] HospitalBvfepeyAMPNXEZSFL6049-81-05:25:00 Test Item Value Reference Range Interpretation Comments Eosinophils (test code = 3.0 See_Comment [A utomated message] The Eosinophils) system which ge nerated this result tra nsmitted reference range : <=4.0. The reference r jose alfredo was not used to int erpret this result as normal/abnormal . [facility] HospitalCauvnhxESYMGUEXSJ4965-06-85:25:00 Test Item Value Reference Range Interpretation Comments Basophils (test code = 1.3 See_Comment [Aut omated message] The Basophils) system which ge nerated this result tra nsmitted reference range : <=1.0. The reference r jose alfredo was not used to int erpret this result as normal/abnormal . [facility] HospitalAetohxjEATPUQVPLP7300-11-21 01:25:00 Test Item Value Reference Range Interpretation Comments Monocytes (test code = Monocytes) 13.0 2.0-12.0 [facility] HospitalFpgudfvGKEKRAXYFD4542-74-54 01:25:00 Test Item Value Reference Range Interpretation Comments Lymphocytes (test code = Lymphocytes) 19.8 20.0-40.0 [facility] HospitalZqrpsceAXWHNRNHGV2727-77-59 01:25:00 Test Item Value Reference Range Interpretation Comments Segs-Bands # (test code = Segs-Bands #) 5.3 1.5-8.1 [facility]2014-10-09 01:25:00 Test Item Value Reference Range Interpretation Comments ALT (test code = ALT) 29 See_Comment [Auto mated message] The system which ge nerated this result transmit stuart reference range : <=65. The reference range was not used to interpr et this result as cherry l/abnormal. [facility]2014-10-09 01:25:00 Test Item Value Reference Range Interpretation Comments A/G Ratio (test code = A/G Ratio) 0.9 0.7-1.6 [facility]2014-10-09 01:25:00 Test Item Value Reference Range Interpretation Comments Alk Phos (test code = Alk Phos) 53 39-136 [facility]2014-10-09 01:25:00 Test Item Value Reference Range Interpretation Comments AST (test code = AST) 24 See_Comment [Auto mated message] The system which ge nerated this result transmit stuart reference range : <=37. The reference range was not used to interpr et this result as cherry l/abnormal. [facility]2014-10-09 01:25:00 Test Item Value Reference Range Interpretation Comments Bili Total (test code = Bili Total) 0.5 0.2-1.3 [facility]2014-10-09 01:25:00 Test Item Value Reference Range Interpretation Comments B/C Ratio (test code = B/C Ratio) 18 6-25 [facility]2014-10-09 01:25:00 Test Item Value Reference Range Interpretation Comments Globulin (test code = Globulin) 4.0 2.0-4.0 [facility]2014-10-09 01:25:00 Test Item Value Reference Range Interpretation Comments Total Protein (test code = Total 7.5 6.4-8.4 Protein) [facility]2014-10-09 01:25:00 Test Item Value Reference Range Interpretation Comments Albumin Lvl (test code = Albumin Lvl) 3.5 3.5-5.0 [facility]2014-10-09 01:25:00 Test Item Value Reference Range Interpretation Comments Potassium Lvl (test code = Potassium 4.5 3.5-5.1 Lvl) [place] [id number] 01:25:00 Test Item Value Reference Range Interpretation Comments CO2 (test code = CO2) 41 24-32 [facility]2014-10-09 01:25:00 Test Item Value Reference Range Interpretation Comments Chloride Lvl (test code = Chloride Lvl) 96 95-109 [facility]2014-10-09 01:25:00 Test Item Value Reference Range Interpretation Comments Calcium Lvl (test code = Calcium Lvl) 9.2 8.5-10.5 [facility]2014-10-09 01:25:00 Test Item Value Reference Range Interpretation Comments AGAP (test code = AGAP) 6.5 10.0-20.0 [facility]2014-10-09 01:25:00 Test Item Value Reference Range Interpretation Comments Sodium Lvl (test code = Sodium Lvl) 139 135-145 [facility]2014-10-09 01:25:00 Test Item Value Reference Range Interpretation Comments Creatinine Lvl (test code = Creatinine 1.1 0.5-1.4 Lvl) [facility]2014-10-09 01:25:00 Test Item Value Reference Range Interpretation Comments BUN (test code = BUN) 20 7-22 [facility]2014-10-09 01:25:00 Test Item Value Reference Range Interpretation Comments Glucose Lvl (test code = Glucose Lvl) 199 70-99 [facility] HospitalIwwueysDJUXCEYNNU5004-03-69 01:25:00 Test Item Value Reference Range Interpretation Comments MCV (test code = MCV) 90.8 80.0-94.0 [facility] HospitalSbqmsvpWEGFCXDCMM5067-18-84 01:25:00 Test Item Value Reference Range Interpretation Comments Hct (test code = Hct) 45.4 42.0-54.0 [facility] HospitalMystzmuSIWITOFPMM4722-61-60 01:25:00 Test Item Value Reference Range Interpretation Comments MCH (test code = MCH) 31.6 pg 27.0-31.0 [facility] HospitalWzfbemyWVELKLXJMK7113-56-07 01:25:00 Test Item Value Reference Range Interpretation Comments RBC (test code = RBC) 5.00 4.70-6.10 [facility] HospitalHvijtwcMOBNVBOCVE1687-07-40 01:25:00 Test Item Value Reference Range Interpretation Comments Hgb (test code = Hgb) 15.8 14.0-18.0 [facility] HospitalZfqqsnzDPLCOGLFMA0572-10-74 01:25:00 Test Item Value Reference Range Interpretation Comments WBC (test code = WBC) 8.5 3.7-10.4 [facility] HospitalUkzuhviWJOSBPFMAX4714-11-74 01:25:00 Test Item Value Reference Range Interpretation Comments MCHC (test code = MCHC) 34.8 32.0-36.0 [facility] HospitalUhbtzqzZIWJFYJQGM0526-45-74 01:25:00 Test Item Value Reference Range Interpretation Comments Platelet (test code = Platelet) 186 133-450 [facility] HospitalLvgebblEDKRTXWBCJ3041-70-28 01:25:00 Test Item Value Reference Range Interpretation Comments RDW (test code = RDW) 14.1 11.5-14.5 [facility] HospitalBanfhrmWEWOLHRGNC7931-91-55 01:25:00 Test Item Value Reference Range Interpretation Comments MPV (test code = MPV) 9.6 7.4-10.4 [facility] HospitalQdupztnOHZWWQVJXP2690-05-68 01:25:00 Test Item Value Reference Range Interpretation Comments Eosinophils # (test code 0.3 See_Comment [A utomated message] The = Eosinophils #) system whic h generated this result tra nsmitted reference range : <=0.5. The reference r jose alfredo was not used to int erpret this result as normal/abnormal . [facility] HospitalWfrurmiAHQJKVHEOL3330-55-31 01:25:00 Test Item Value Reference Range Interpretation Comments Basophils # (test code 0.1 See_Comment [Aut omated message] The = Basophils #) system which generated this result tra nsmitted reference range : <=0.2. The reference r jose alfredo was not used to int erpret this result as normal/abnormal . [facility] HospitalXbdsficFGMHCKIUNL8349-90-36 01:25:00 Test Item Value Reference Range Interpretation Comments Monocytes # (test code 1.1 See_Comment [Aut omated message] The = Monocytes #) system which generated this result tra nsmitted reference range : <=0.8. The reference r jose alfredo was not used to int erpret this result as normal/abnormal . [facility] HospitalNejipclAMKMSCGSGG5413-77-76 01:25:00 Test Item Value Reference Range Interpretation Comments Segs (test code = Segs) 62.9 45.0-75.0 [place] [id number] 01:25:00 Test Item Value Reference Range Interpretation Comments Lymphocytes # (test code = Lymphocytes 1.7 1.0-5.5 #) [facility] HospitalGuqibfuPXOOQPWMYD3133-04-13 01:25:00 Test Item Value Reference Range Interpretation Comments Eosinophils (test code = 3.0 See_Comment [A utomated message] The Eosinophils) system which ge nerated this result tra nsmitted reference range : <=4.0. The reference r jose alfredo was not used to int erpret this result as normal/abnormal . [facility] HospitalIniklqdZQRXGAVSSY1986-84-84 01:25:00 Test Item Value Reference Range Interpretation Comments Basophils (test code = 1.3 See_Comment [Aut omated message] The Basophils) system which ge nerated this result tra nsmitted reference range : <=1.0. The reference r jose alfredo was not used to int erpret this result as normal/abnormal . [facility] HospitalWxkmppvFYORMNIDOF8272-07-45 01:25:00 Test Item Value Reference Range Interpretation Comments Monocytes (test code = Monocytes) 13.0 2.0-12.0 [facility] HospitalJkczxjnJPCWWXZONT4119-14-27 01:25:00 Test Item Value Reference Range Interpretation Comments Lymphocytes (test code = Lymphocytes) 19.8 20.0-40.0 [facility] HospitalMevojqjMWRRYNCNTW1972-76-20 01:25:00 Test Item Value Reference Range Interpretation Comments Segs-Bands # (test code = Segs-Bands #) 5.3 1.5-8.1 [facility]2014-10-09 01:25:00 Test Item Value Reference Range Interpretation Comments ALT (test code = ALT) 29 See_Comment [Auto mated message] The system which ge nerated this result transmit stuart reference range : <=65. The reference range was not used to interpr et this result as cherry l/abnormal. [facility]2014-10-09 01:25:00 Test Item Value Reference Range Interpretation Comments A/G Ratio (test code = A/G Ratio) 0.9 0.7-1.6 [facility]2014-10-09 01:25:00 Test Item Value Reference Range Interpretation Comments Alk Phos (test code = Alk Phos) 53 39-136 [facility]2014-10-09 01:25:00 Test Item Value Reference Range Interpretation Comments AST (test code = AST) 24 See_Comment [Auto mated message] The system which ge nerated this result transmit stuart reference range : <=37. The reference range was not used to interpr et this result as cherry l/abnormal. [facility]2014-10-09 01:25:00 Test Item Value Reference Range Interpretation Comments Bili Total (test code = Bili Total) 0.5 0.2-1.3 [facility]2014-10-09 01:25:00 Test Item Value Reference Range Interpretation Comments B/C Ratio (test code = B/C Ratio) 18 6-25 [facility]2014-10-09 01:25:00 Test Item Value Reference Range Interpretation Comments Globulin (test code = Globulin) 4.0 2.0-4.0 [facility]2014-10-09 01:25:00 Test Item Value Reference Range Interpretation Comments Total Protein (test code = Total 7.5 6.4-8.4 Protein) [facility]2014-10-09 01:25:00 Test Item Value Reference Range Interpretation Comments Albumin Lvl (test code = Albumin Lvl) 3.5 3.5-5.0 [facility]2014-10-09 01:25:00 Test Item Value Reference Range Interpretation Comments Potassium Lvl (test code = Potassium 4.5 3.5-5.1 Lvl) [facility]2014-10-09 01:25:00 Test Item Value Reference Range Interpretation Comments CO2 (test code = CO2) 41 24-32 [facility]2014-10-09 01:25:00 Test Item Value Reference Range Interpretation Comments Chloride Lvl (test code = Chloride Lvl) 96 95-109 [facility]2014-10-09 01:25:00 Test Item Value Reference Range Interpretation Comments Calcium Lvl (test code = Calcium Lvl) 9.2 8.5-10.5 [facility]2014-10-09 01:25:00 Test Item Value Reference Range Interpretation Comments AGAP (test code = AGAP) 6.5 10.0-20.0 [facility]2014-10-09 01:25:00 Test Item Value Reference Range Interpretation Comments Sodium Lvl (test code = Sodium Lvl) 139 135-145 [facility]2014-10-09 01:25:00 Test Item Value Reference Range Interpretation Comments Creatinine Lvl (test code = Creatinine 1.1 0.5-1.4 Lvl) [facility]2014-10-09 01:25:00 Test Item Value Reference Range Interpretation Comments BUN (test code = BUN) 20 7-22 [facility]2014-10-09 01:25:00 Test Item Value Reference Range Interpretation Comments Glucose Lvl (test code = Glucose Lvl) 199 70-99 [id number] 01:25:00 Test Item Value Reference Range Interpretation Comments MCV (test code = MCV) 90.8 80.0-94.0 [facility] H[id number] 01:25:00 Test Item Value Reference Range Interpretation Comments Hct (test code = Hct) 45.4 42.0-54.0 [facility] H[id number] 01:25:00 Test Item Value Reference Range Interpretation Comments MCH (test code = MCH) 31.6 pg 27.0-31.0 [facility] H[id number] 01:25:00 Test Item Value Reference Range Interpretation Comments RBC (test code = RBC) 5.00 4.70-6.10 [facility] H[id number] 01:25:00 Test Item Value Reference Range Interpretation Comments Hgb (test code = Hgb) 15.8 14.0-18.0 [facility] H[id number] 01:25:00 Test Item Value Reference Range Interpretation Comments WBC (test code = WBC) 8.5 3.7-10.4 [facility] Hospit[id number] 01:25:00 Test Item Value Reference Range Interpretation Comments MCHC (test code = MCHC) 34.8 32.0-36.0 [facility] [id number] 01:25:00 Test Item Value Reference Range Interpretation Comments Platelet (test code = Platelet) 186 133-450 [facility] H[id number] 01:25:00 Test Item Value Reference Range Interpretation Comments RDW (test code = RDW) 14.1 11.5-14.5 [facility] H[id number] 01:25:00 Test Item Value Reference Range Interpretation Comments MPV (test code = MPV) 9.6 7.4-10.4 [facility] Hos[id number] 01:25:00 Test Item Value Reference Range Interpretation Comments Eosinophils # (test code 0.3 See_Comment [A utomated message] The = Eosinophils #) system whic h generated this result tra nsmitted reference range : <=0.5. The reference r jose alfredo was not used to int erpret this result as normal/abnormal . [facility] H[id number] 01:25:00 Test Item Value Reference Range Interpretation Comments Basophils # (test code 0.1 See_Comment [Aut omated message] The = Basophils #) system which generated this result tra nsmitted reference range : <=0.2. The reference r jose alfredo was not used to int erpret this result as normal/abnormal . [facility] H[id number] 01:25:00 Test Item Value Reference Range Interpretation Comments Monocytes # (test code 1.1 See_Comment [Aut omated message] The = Monocytes #) system which generated this result tra nsmitted reference range : <=0.8. The reference r jose alfredo was not used to int erpret this result as normal/abnormal . [facility] H[id number] 01:25:00 Test Item Value Reference Range Interpretation Comments Segs (test code = Segs) 62.9 45.0-75.0 [facility] [id number] 01:25:00 Test Item Value Reference Range Interpretation Comments Lymphocytes # (test code = Lymphocytes 1.7 1.0-5.5 #) [facility] [id number] 01:25:00 Test Item Value Reference Range Interpretation Comments Eosinophils (test code = 3.0 See_Comment [A utomated message] The Eosinophils) system which ge nerated this result tra nsmitted reference range : <=4.0. The reference r jose alfredo was not used to int erpret this result as normal/abnormal . [facility] H[id number] 01:25:00 Test Item Value Reference Range Interpretation Comments Basophils (test code = 1.3 See_Comment [Aut omated message] The Basophils) system which ge nerated this result tra nsmitted reference range : <=1.0. The reference r jose alfredo was not used to int erpret this result as normal/abnormal . [facility] [id number] 01:25:00 Test Item Value Reference Range Interpretation Comments Monocytes (test code = Monocytes) 13.0 2.0-12.0 [facility] [id number] 01:25:00 Test Item Value Reference Range Interpretation Comments Lymphocytes (test code = Lymphocytes) 19.8 20.0-40.0 [facility] H[id number] 01:25:00 Test Item Value Reference Range Interpretation Comments Segs-Bands # (test code = Segs-Bands #) 5.3 1.5-8.1 [facility]
[2022-11-05 08:16] LABS: Absolute Lymphocytes (CBC) 0.9 K/uL (0.7-4.9); Hematocrit 28.3 % (39.6-49.0); Lymphocytes % 9.6 % (15.3-44.8); MPV 8.3 fL (7.6-11.3); RBC Red Blood Cell Count 3.18 M/uL (4.33-5.43)
[2022-11-05 08:22] LABS: Protime INR 1.66
[2022-11-05 08:34] LABS: AST/SGOT 10 U/L (15-37); Albumin 2.5 g/dL (3.4-5.0); Alkaline Phosphatase 85 U/L (45-117); BUN Blood Urea Nitrogen 37 mg/dL (7-18); Bicarbonate 38 mmol/L (21-32); Bilirubin Total 0.3 mg/dL (0.2-1.0); Glomerular Filtration Rate 44 ml/min (=/>90); Glucose Level 92 mg/dL (74-106); Protein, Total 6.4 g/dL (6.4-8.2); Sodium Level 132 mmol/L (136-145)
--- NOTE | 2022-11-05 08:40 | RAD REPORT ---
EXAM DESCRIPTION: Luis Eduardo Single View11/05/2022 8:27 am CLINICAL HISTORY: Shortness of breath COMPARISON: October 2022 FINDINGS: Mild bilateral pulmonary opacities. Heart is mildly to moderately enlarged. Small bilateral pleural effusions Tip of an endotracheal tube 17 millimeters above the top of the aortic arch Orogastric tube 10 centimeters into the stomach
[2022-11-05 08:59] LABS: ALT/SGPT < 10 U/L (16-61)
[2022-11-05] MEDS ORDERED: D5 0.9 NS 1,000 ML IV ONE (09:04)
[2022-11-05 09:18] LABS: Troponin High Sensitivity 18.6 pg/mL (<58.9)
--- NOTE | 2022-11-05 09:44 | RAD REPORT ---
EXAM DESCRIPTION: CT - Head Brain Wo Cont - 11/05/2022 9:25 am CLINICAL HISTORY: Alteration of awareness/confusion COMPARISON: Sep 2022 TECHNIQUE: Computed axial tomography of the head was obtained. IV contrast was not requested. All CT scans are performed using dose optimization technique as appropriate and may include automated exposure control or mA/KV adjustment according to patient size. FINDINGS: An intracranial bleed is not seen The ventricles are normal in caliber No extra-axial fluid collection is noted. . Mild cerebral atrophy Mild low-density areas within periventricular, deep and subcortical white matter likely represent isc hemic changes secondary to small vessel disease. IMPRESSION: No acute intracranial abnormality is seen If patient's symptoms persist MRI of the brain would be recommended
[2022-11-05] MEDS ORDERED: D10W 250 ML IV ONE ×2 (10:43→20:58)
[2022-11-05 10:46] LABS: Arterial Blood Carboxyhemoglob 2.3 % (0-1.5); Blood O2 Saturation 97.5 % (92-98.5)
[2022-11-05] MEDS ORDERED: DEXTROSE 10%-WATER 500 ML IV ONE (10:57)
[2022-11-05 11:21] LABS: SARS-CoV-2 Antigen Rapid Res Negative (Negative)
--- NOTE | 2022-11-05 12:01 | RAD REPORT ---
EXAM DESCRIPTION: Luis Eduardo Single View11/05/2022 11:39 am CLINICAL HISTORY: Device placement/central venous catheter placement IMPRESSION: It appears that a left internal jugular vein catheter has been placed. The tip of the ca theter lies to the right of midline. It is uncertain if it lies within the proximal superior vena cav a or other vessel. The distal 1.5 centimeters of the catheter is horizontal pointing to the left. No pneumothorax seen
[2022-11-05 12:07] LABS: Urine Blood 2+ (Negative); Urine Glucose Negative (Negative); Urine Protein 1+ (Negative); Urine pH 7.5 (5.0-7.0)
[2022-11-05] MEDS ORDERED: GLUCAGON 1 MG/VIAL IM PRN (12:20)
[2022-11-05] MEDS ORDERED: D50W 25 GM/50 ML SYRINGE IV PRN (12:20)
[2022-11-05] MEDS ORDERED: ONDANSETRON 4 MG/2 ML VIAL IV PRN (12:25)
--- NOTE | 2022-11-05 12:26 | P.HP ---
Patient History Date of Service: 11/05/22 Allergies caffeine Allergy (Verified 09/16/22 23:26) Anaphylaxis codeine Allergy (Verified 09/16/22 23:26) Anaphylaxis Home Medications: Arformoterol Tartrate [Brovana] 1 amp NEB BID 04/04/22 Atorvastatin Calcium [Lipitor*] 10 mg PO BEDTIME 04/04/22 Buspirone HCl [Buspar*] 5 mg PO TID 04/04/22 Divalproex [Depakote Sprinkle*] 625 mg PO BID 04/04/22 Doxepin HCl [Sinequan*] 25 mg PO BEDTIME 04/04/22 Insulin Degludec [Tresiba] 55 unit SQ BEDTIME 04/04/22 Levalbuterol HCl [Xopenex] 1 amp NEB Q6HP PRN 04/04/22 Levothyroxine [Synthroid*] 0.1 mg PO DAILY 04/04/22 Melatonin 5 mg PO BEDTIME 04/04/22 Memantine HCl [Namenda*] 10 mg PO BEDTIME 04/04/22 Polyethyl Gly 3350 [Glycolax*] 17 g PO BID 04/04/22 Potassium Oral Tab [Klor-Con 10 mEq Tab*] 20 meq PO DAILY 04/04/22 Rivaroxaban [Xarelto] 20 mg PO BEDTIME 04/04/22 Venlafaxine HCl 75 mg PO BID 04/04/22 carvediloL [Coreg*] 12.5 mg PO BID 04/04/22 Tamsulosin [Flomax*] 0.4 mg PO BEDTIME 30 Days #30 cap 09/19/22 Hydrocodone Bit/Acetaminophen [[place] 7.5-325 Tablet] 1 each PO Q8HP PRN 10/22/22 Sennosides [Senna] 2 tab PO BID 10/22/22 Sitagliptin Phosphate [Januvia] 100 mg PO DAILY 10/22/22 Timolol Maleate/Pf [Timolol Maleate 0.5% Eye Drop] 1 drop EACH EYE DAILY 10/22/22 Amiodarone HCl [Cordarone*] 200 mg PO BID #60 tab 10/26/22 Furosemide [Lasix] 20 mg PO BIDL #60 tab 10/26/22 Sodium Chloride Tab [Sodium Chloride*] 1 gm PO BID #60 tab 10/26/22 acetaZOLAMIDE [Acetazolamide] 125 mg PO DAILY #30 tab 10/26/22 - Past Medical/Surgical History Diabetic: Yes -: Severe COPD, Pt has a BIPAP -: DM II -: HTN -: HLD -: Bipolar -: Systolic CHF -: CKD III (Dr. Dempsey) -: Heart stents Psychosocial/ Personal History: [facility] resident - Family History Mother -: Stroke Notes: Stroke - Social History Alcohol use: No CD- Drugs: No Caffeine use: No Physical Examination - Studies Laboratory Data (last 24 hrs) 11/05/22 08:00: PT 18.3 H, INR 1.66, APTT 35.8 11/05/22 08:00: Sodium 132 L, Potassium 5.0, BUN 37 H, Creatinine 1.58 H, Glucose 92, Total Bilirubin 0.3, AST 10 L, ALT < 10 L, Alkaline Phosphatase 85 11/05/22 08:00: WBC 9.30, Hgb 8.9 L, Hct 28.3 L, Plt Count 200 Assessment and Plan - Advance Directives Does patient have a Living Will: No Does patient have a Durable POA for Healthcare: No
[2022-11-05] MEDS ORDERED: D10W 125 ML IV PRN (12:30)
[2022-11-05] MEDS: INSULIN -REGULAR HUMAN 50 UNIT/0.5 ML ML SQ SCH ×3 (13:00→21:00)
[2022-11-05] MEDS ORDERED: ETOMIDATE 20 MG/10 ML VIAL IV ONE (13:19)
[2022-11-05] MEDS ORDERED: SUCCINYLCHOLINE 20 MG/ML (10 ML) IV ONE (13:19)
[2022-11-05] MEDS ORDERED: CEFTRIAXONE 1000 MG/VIAL ONE (13:37)
[2022-11-05] MEDS ORDERED: NA CHLORIDE 0.9% 50 ML ONE (13:38)
[2022-11-05 13:52] LABS: Absolute Lymphocytes (CBC) 0.7 K/uL (0.7-4.9); Hematocrit 29.5 % (39.6-49.0); MPV 8.2 fL (7.6-11.3); RBC Red Blood Cell Count 3.35 M/uL (4.33-5.43)
[2022-11-05 14:19] LABS: Magnesium 2.2 mg/dL (1.6-2.4); Phosphorus 3.3 mg/dL (2.5-4.9); Potassium 4.1 mmol/L (3.5-5.1); Thyroid Stimulating Hormone 2.04 uIU/mL (0.358-3.740)
--- NOTE | 2022-11-05 17:31 | EKG ---
Test Date: 2022-11-05 Test Time: 08:56:09 Associate Store Manager: NEHEMIAH MEASUREMENT RESULTS: Intervals: Rate: 44 FL: 202 QRSD: 88 QT: 528 QTc: 451 [place]: P: 91 FL: 202 QRS: 79 T: 79 INTERPRETIVE STATEMENTS: Marked sinus bradycardia Abnormal ECG Compared to ECG 10/25/2022 08:20:32 Ventricular premature complex(es) no longer present First degree AV block no longer present ST (T wave) deviation no longer present Prolonged QT interval no longer present Electronically Signed On 11-05-22 17:30:44 ONCOLOGY NURSE NAVIGATOR by Cristian Avina
[2022-11-05] MEDS ORDERED: D10W 0 ML IV ONE (19:07)
[2022-11-05] MEDS ORDERED: D10W 250 ML IV SCH (19:11)
[2022-11-05 19:37] LABS: Urine Bacteria 20-50 /HPF (<20); Urine RBC 21-50 /HPF (None Seen); Urine WBC Clump Occasional /HPF (None Seen)
[2022-11-05] MEDS ORDERED: D5W 1,000 ML IV ONE (21:10)
[2022-11-05] MEDS: ENOXAPARIN 40 MG/0.4 ML SQ SCH (21:12)
[2022-11-05] MEDS: D5W 1,000 ML IV SCH (21:13)
[2022-11-05] MEDS ORDERED: ENOXAPARIN 40 MG/0.4 ML SQ ONE (21:14)
[2022-11-05] MEDS ORDERED: ACETAMINOPHEN 650MG/RECT SUPP PR ONE (22:15)
[2022-11-05] MEDS: ACETAMINOPHEN 650MG/RECT SUPP PR PRN (22:30)
[2022-11-05] MEDS ORDERED: propofoL 500 MG/50 ML ML IV PRN (23:59)
[2022-11-06] MEDS ORDERED: propofoL 1,000 MG/100 ML VIAL IV ONE (00:28)
[2022-11-06] MEDS: propofoL 1,000 MG/100 ML VIAL IV SCH ×3 (00:30→17:49)
--- NOTE | 2022-11-06 00:31 | P.DS ---
Discharge Date: 10/27/22 Disposition: TRANSFER TO DETENTION Discharge Condition: GOOD Consultations: Cardiology Brief History of Present Illness: 77-year-old male with history of chronic systolic heart failure, COPD, CAD, A- fib on chronic anticoagulation, insulin-dependent diabetes, hypertension, dementia, hypothyroidism presents to the emergency department for hypoxia from [facility]p. Nursing staff reported that patient was hypoxic on his pain lit ers per nasal cannula that he usually wears saturating in the 80s. He was brought to the emergency department for evaluation. He did not appear to be hypoxic during his stay in the emergency department on 3 L nasal cannula but additional work-up revealed labs significant for bicarb of 39 and chemistry, sodium 130 chloride 87 creatinine 1.14 BNP 8343 white blood cell count 12.8 hemoglobin 9.8 hematocrit 29.2 ABG demonstrated hypercapnic respiratory failure with pH of 7.21 PCO2 76.7. It is noted that patient recently presented to the emergency department after a fall on 10/05/2022 and was subsequently transferred to [facility] for a distal tib-fib fracture which he has since had surgery for, his left leg is immobilized in a splint. He has pain edema of the right lower extremity, pulmonary edema on chest x-ray. ED prior wishes to admit for further evaluation and management of acute on chronic hypercapnic respiratory failure, CHF exacerbation. CT PE protocol ordered now and pending. Hospital Course: Patient has improved with diuresing. Patient was also in atrial fibrillation with rapid ventricular response and we started patient on amiodarone. Patient did have to get a ANITHA with cardioversion and converted to a sinus rhythm. Patient's ejection fraction is about 30%. Will need to continue with gentle diuresing. Monitor his volume status closely as an outpatient. At this time patient is clinically doing well and stable for discharge with outpatient follow-up. Vital Signs/Physical Exam: Temp Pulse Resp BP Pulse Ox 100.7 F 55 20 142/57 H 100 11/05/22 22:30 11/05/22 23:20 11/05/22 23:20 11/05/22 23:20 11/05/22 23:20 Laboratory Data at Discharge: WBC 8.70 K/uL (4.3-10.9) 11/05/22 13:40 Hgb 9.5 g/dL (13.6-17.9) L 11/05/22 13:40 Hct 29.5 % (39.6-49.0) L 11/05/22 13:40 Plt Count 201 K/uL (152-406) 11/05/22 13:40 PT 18.3 SECONDS (9.5-12.5) H 11/05/22 08:00 INR 1.66 11/05/22 08:00 APTT 35.8 SECONDS (24.3-36.9) 11/05/22 08:00 Sodium 132 mmol/L (136-145) L 11/05/22 13:40 Potassium 4.1 mmol/L (3.5-5.1) D 11/05/22 13:40 BUN 33 mg/dL (7-18) H 11/05/22 13:40 Creatinine 1.34 mg/dL (0.70-1.30) H 11/05/22 13:40 Glucose 100 mg/dL (74-106) 11/05/22 13:40 Phosphorus 3.3 mg/dL (2.5-4.9) 11/05/22 13:40 Magnesium 2.2 mg/dL (1.6-2.4) 11/05/22 13:40 Total Bilirubin 0.3 mg/dL (0.2-1.0) 11/05/22 08:00 AST 10 U/L (15-37) L 11/05/22 08:00 ALT < 10 U/L (16-61) L 11/05/22 08:00 Alkaline Phosphatase 85 U/L (45-117) 11/05/22 08:00 Home Medications: Arformoterol Tartrate [Brovana] 1 amp NEB BID 04/04/22 Atorvastatin Calcium [Lipitor*] 10 mg PO BEDTIME 04/04/22 Buspirone HCl [Buspar*] 5 mg PO TID 04/04/22 Divalproex [Depakote Sprinkle*] 625 mg PO BID 04/04/22 Doxepin HCl [Sinequan*] 25 mg PO BEDTIME 04/04/22 Insulin Degludec [Tresiba] 55 unit SQ BEDTIME 04/04/22 Levalbuterol HCl [Xopenex] 1 amp NEB Q6HP PRN 04/04/22 Levothyroxine [Synthroid*] 0.1 mg PO DAILY 04/04/22 Melatonin 5 mg PO BEDTIME 04/04/22 Memantine HCl [Namenda*] 10 mg PO BEDTIME 04/04/22 Polyethyl Gly 3350 [Glycolax*] 17 g PO BID 04/04/22 Potassium Oral Tab [Klor-Con 10 mEq Tab*] 20 meq PO DAILY 04/04/22 Rivaroxaban [Xarelto] 20 mg PO BEDTIME 04/04/22 Venlafaxine HCl 75 mg PO BID 04/04/22 carvediloL [Coreg*] 12.5 mg PO BID 04/04/22 Tamsulosin [Flomax*] 0.4 mg PO BEDTIME 30 Days #30 cap 09/19/22 Hydrocodone Bit/Acetaminophen [[place] 7.5-325 Tablet] 1 each PO Q8HP PRN 10/22/22 Sennosides [Senna] 2 tab PO BID 10/22/22 Sitagliptin Phosphate [Januvia] 100 mg PO DAILY 10/22/22 Timolol Maleate/Pf [Timolol Maleate 0.5% Eye Drop] 1 drop EACH EYE DAILY 10/22/22 Amiodarone HCl [Cordarone*] 200 mg PO BID #60 tab 10/26/22 Furosemide [Lasix] 20 mg PO BIDL #60 tab 10/26/22 Sodium Chloride Tab [Sodium Chloride*] 1 gm PO BID #60 tab 10/26/22 acetaZOLAMIDE [Acetazolamide] 125 mg PO DAILY #30 tab 10/26/22 Followup: NONE,NONE [Primary Care Provider] -
[2022-11-06] MEDS ORDERED: propofoL 500 MG/50 ML ML IV PRN (00:32)
[2022-11-06] MEDS: INSULIN -REGULAR HUMAN 50 UNIT/0.5 ML ML SQ SCH ×3 (01:00→09:00)
--- NOTE | 2022-11-06 01:04 | P.HP ---
Certification for Inpatient Patient admitted to: Inpatient With expected LOS: >2 Midnights Patient will require the following post-hospital care: Assisted Practitioner: I am a practitioner with admitting privileges, knowledge of patient current condition, hospital course, and medical plan of care. Services: Services provided to patient in accordance with Admission requirements found in Title 42 Section 412.3 of the Code of Federal Regulations Patient History Date of Service: 11/05/22 Reason for admission: Acute respiratory failure; severe hypoglycemia History of Present Illness: Patient is a 77-year-old gentleman who has a history of congestive heart failure with systolic failure-ejection fraction of about 30%. Patient was cardioverted a few weeks ago as he was in atrial fibrillation. Patient was started on gentle diuresing. Patient was discharged on Lasix and his creatinine has slowly increased. I believe this is left to patient having hypoglycemic episodes. Patient's blood sugars were low on arrival and his mentation was altered. Patient also had a fall when he suffered a tib fib fracture a few weeks ago. This was repaired and he has a splint in place. He is supposed to follow-up with Dr. Recinos. Dr. Fadia calzada from a cardiology standpoint. Patient is on amiodarone for atrial fibrillation. Patient takes Lasix and his use of the limb eye as he has persistent hypercapnia with significant respiratory alkalosis. At this time will continue with D10 water and try to get patient's blood sugars stabilized. Will monitor his volume status because of his congestive heart failure. Will consult Pulmonary for vent management as well as Cardiology for assistance with his cardiac care. If his renal function worsens will also get Nephrology involved. At this time the main goal is to make sure we stabilize patient's blood sugars will work on trying to get him extubated. Will repeat his chest x-ray and repeat labs in the morning. Hopefully we can get him extubated. His states that his wishes are to be on a ventilator for a few days if he does not improve then he would want his family to withdraw care. Patient has been in the long-term for about 10 years she as his was unable to care for him at home. He does get around fairly well even after his tib-fib fracture. Once he is extubated will need to get Physical therapy involved in his care. Allergies caffeine Allergy (Verified 09/16/22 23:26) Anaphylaxis codeine Allergy (Verified 09/16/22 23:26) Anaphylaxis Home Medications: Arformoterol Tartrate [Brovana] 1 amp NEB BID 04/04/22 Atorvastatin Calcium [Lipitor*] 10 mg PO BEDTIME 04/04/22 Buspirone HCl [Buspar*] 5 mg PO TID 04/04/22 Divalproex [Depakote Sprinkle*] 625 mg PO BID 04/04/22 Doxepin HCl [Sinequan*] 25 mg PO BEDTIME 04/04/22 Insulin Degludec [Tresiba] 55 unit SQ BEDTIME 04/04/22 Levalbuterol HCl [Xopenex] 1 amp NEB Q6HP PRN 04/04/22 Levothyroxine [Synthroid*] 0.1 mg PO DAILY 04/04/22 Melatonin 5 mg PO BEDTIME 04/04/22 Memantine HCl [Namenda*] 10 mg PO BEDTIME 04/04/22 Polyethyl Gly 3350 [Glycolax*] 17 g PO BID 04/04/22 Potassium Oral Tab [Klor-Con 10 mEq Tab*] 20 meq PO DAILY 04/04/22 Rivaroxaban [Xarelto] 20 mg PO BEDTIME 04/04/22 Venlafaxine HCl 75 mg PO BID 04/04/22 carvediloL [Coreg*] 12.5 mg PO BID 04/04/22 Tamsulosin [Flomax*] 0.4 mg PO BEDTIME 30 Days #30 cap 09/19/22 Hydrocodone Bit/Acetaminophen [[place] 7.5-325 Tablet] 1 each PO Q8HP PRN 10/22/22 Sennosides [Senna] 2 tab PO BID 10/22/22 Sitagliptin Phosphate [Januvia] 100 mg PO DAILY 10/22/22 Timolol Maleate/Pf [Timolol Maleate 0.5% Eye Drop] 1 drop EACH EYE DAILY 10/22/22 Amiodarone HCl [Cordarone*] 200 mg PO BID #60 tab 10/26/22 Furosemide [Lasix] 20 mg PO BIDL #60 tab 10/26/22 Sodium Chloride Tab [Sodium Chloride*] 1 gm PO BID #60 tab 10/26/22 acetaZOLAMIDE [Acetazolamide] 125 mg PO DAILY #30 tab 02/25/23 - Past Medical/Surgical History Diabetic: Yes -: Severe COPD, Pt has a BIPAP -: DM II -: HTN -: HLD -: Bipolar -: Systolic CHF -: CKD III (Dr. Dempsey) -: Heart stents Psychosocial/ Personal History: [facility] resident - Family History Mother Medical History: Stroke Notes: Stroke - Social History Smoking Status: Unknown if ever smoked Alcohol use: No CD- Drugs: No Caffeine use: No Review of Systems is unable to be obtained Physical Examination - Vital Signs Temperature: 100.7 F Blood Pressure: 142/57 Pulse: 55 Respirations: 20 Pulse Ox (%): 100 - Physical Exam General: Severe distress, Confused, Unresponsive HEENT: Atraumatic, PERRLA, Mucous membr. moist/pink, Other (ET tube in place), EOMI, Sclerae nonicteric Neck: Supple, 2+ carotid pulse no bruit, No LAD, Without JVD or thyroid abnormality Respiratory: Diminished, Crackles/rales Cardiovascular: Regular rate/rhythm, Normal S1 S2, Systolic murmur ( she) Gastrointestinal: Normal bowel sounds, Soft and benign, Non-distended, No tenderness Musculoskeletal: No clubbing, No swelling, No tenderness Integumentary: No rashes Neurological: Sensation intact, Cranial nerves 3-12 intact, Abnormal gait, Abnormal speech ( he), Abnormal strength Lymphatics: No axilla or inguinal lymphadenopathy - Studies Laboratory Data (last 24 hrs) 11/05/22 08:00: PT 18.3 H, INR 1.66, APTT 35.8 11/05/22 08:00: Sodium 132 L, Potassium 5.0, BUN 37 H, Creatinine 1.58 H, Glucose 92, Total Bilirubin 0.3, AST 10 L, ALT < 10 L, Alkaline Phosphatase 85 11/05/22 08:00: WBC 9.30, Hgb 8.9 L, Hct 28.3 L, Plt Count 200 Assessment & Plan - Problems (Diagnosis) (1) Acute respiratory failure with hypoxia and hypercapnia Current Visit: No Status: Acute (2) CHF (congestive heart failure), NYHA class II Current Visit: No Status: Acute Qualifiers: Congestive heart failure type: unspecified Qualified Code(s): I50.9 - Heart failure, unspecified (3) COPD exacerbation Current Visit: No Status: Acute (4) Chronic respiratory failure Current Visit: No Status: Acute Qualifiers: Respiratory failure complication: hypoxia and hypercapnia Qualified Code(s): J96.11 - Chronic respiratory failure with hypoxia; J96.12 - Chronic respiratory failure with hypercapnia; J96.12 - Chronic respiratory failure with hypercapnia (5) Depression Current Visit: No Status: Acute Qualifiers: Depression Type: major depressive disorder (6) Diabetes mellitus Current Visit: No Status: Acute (7) Respiratory failure with hypoxia and hypercapnia Current Visit: No Status: Acute Qualifiers: Chronicity: chronic Qualified Code(s): J96.11 - Chronic respiratory failure with hypoxia; J96.12 - Chronic respiratory failure with hypercapnia (8) HLD (hyperlipidemia) Current Visit: No Status: Chronic Qualifiers: Hyperlipidemia type: unspecified Qualified Code(s): E78.5 - Hyperlipidemia, unspecified (9) HTN (hypertension) Current Visit: No Status: Chronic Qualifiers: Hypertension type: essential hypertension - Plan plan: 1. Continue with vent management; wean off ventilator and hopefully we can extubate in the morning 2. Repeat chest x-ray 3. Monitor labs 4. Resume cardiac meds 5. Monitor blood sugars very closely and check a hemoglobin A1c 6. Continue with D5 or D10 with water to keep blood sugars around [address] of the chest 9. GI and DVT prophylaxis Discharge Plan: [facility] Plan to discharge in: Greater than 2 days - Advance Directives Does patient have a Living Will: No Does patient have a Durable POA for Healthcare: No - Code Status/Comfort Care Code Status Assessed: Yes Code Status: Full Code Critical Care: Yes Time Spent Managing PTS Care (In Minutes): 55
--- NOTE | 2022-11-06 01:09 | P.PN ---
Subjective Date of Service: 11/06/22 Patient's clinical symptoms are improved and we were able to get patient extubated. Clinical symptoms are improving. However, patient appears to have had a stroke. Swallow study reveals high risk of aspiration. We discussed with family regarding prognosis. CT does not reveal an acute infarct so we will get an MRI. Review of Systems 10-point ROS is otherwise unremarkable Physical Examination - Vital Signs Temperature: 100.7 F Blood Pressure: 142/57 Pulse: 55 Respirations: 20 Pulse Ox (%): 100 - Physical Exam General: Severe distress, Unresponsive HEENT: Atraumatic, PERRLA, EOMI Neck: Supple, JVD not distended Respiratory: Diminished, Rhonchi/gurgles Cardiovascular: Regular rate/rhythm, Normal S1 S2, No murmurs Gastrointestinal: Normal bowel sounds, Soft and benign, Non-distended, No tenderness Musculoskeletal: No clubbing, No swelling, No tenderness Neurological: Sensation intact, Cranial nerves 3-12 intact - Studies Laboratory Data (last 24 hrs) 11/05/22 08:00: PT 18.3 H, INR 1.66, APTT 35.8 11/05/22 08:00: Sodium 132 L, Potassium 5.0, BUN 37 H, Creatinine 1.58 H, Glucose 92, Total Bilirubin 0.3, AST 10 L, ALT < 10 L, Alkaline Phosphatase 85 11/05/22 08:00: WBC 9.30, Hgb 8.9 L, Hct 28.3 L, Plt Count 200 Medications List Reviewed: Yes Assessment & Plan - Problems (Diagnosis) (1) Acute respiratory failure with hypoxia and hypercapnia Current Visit: No Status: Acute (2) CHF (congestive heart failure), NYHA class II Current Visit: No Status: Acute Qualifiers: Congestive heart failure type: unspecified Qualified Code(s): I50.9 - Heart failure, unspecified (3) COPD exacerbation Current Visit: No Status: Acute (4) Chronic respiratory failure Current Visit: No Status: Acute Qualifiers: Respiratory failure complication: hypoxia and hypercapnia Qualified Code(s): J96.11 - Chronic respiratory failure with hypoxia; J96.12 - Chronic respiratory failure with hypercapnia; J96.12 - Chronic respiratory failure with hypercapnia (5) Depression Current Visit: No Status: Acute Qualifiers: Depression Type: major depressive disorder (6) Diabetes mellitus Current Visit: No Status: Acute (7) Respiratory failure with hypoxia and hypercapnia Current Visit: No Status: Acute Qualifiers: Chronicity: chronic Qualified Code(s): J96.11 - Chronic respiratory failure with hypoxia; J96.12 - Chronic respiratory failure with hypercapnia (8) HLD (hyperlipidemia) Current Visit: No Status: Chronic Qualifiers: Hyperlipidemia type: unspecified Qualified Code(s): E78.5 - Hyperlipidemia, unspecified (9) HTN (hypertension) Current Visit: No Status: Chronic Qualifiers: Hypertension type: essential hypertension - Plan Plan: 1. Extubated. Patient doing well off the ventilator. He is having a hard time clearing his secretions. Scopolamine 2. Chest x-ray is stable. 3. Monitor labs-renal function is stable 4. Resume cardiac meds 5. Monitor blood sugars 6. Resume amiodarone 7. We will do a CT of the brain. 8. GI and DVT prophylaxis Discharge Plan: Home Plan to discharge in: Greater than 2 days - Advance Directives Does patient have a Living Will: No Does patient have a Durable POA for Healthcare: No - Code Status/Comfort Care Code Status: Full Code Critical Care: No Time Spent Managing PTS Care (In Minutes): 35
[2022-11-06 04:54] LABS: Absolute Lymphocytes (CBC) 0.5 K/uL (0.7-4.9); Hematocrit 26.1 % (39.6-49.0); Lymphocytes % 3.2 % (15.3-44.8); MCV 86.9 fL (80-100); MPV 8.8 fL (7.6-11.3)
[2022-11-06 05:14] LABS: AST/SGOT 11 U/L (15-37); Alkaline Phosphatase 70 U/L (45-117); BUN Blood Urea Nitrogen 36 mg/dL (7-18); Bicarbonate 34 mmol/L (21-32); Bilirubin Total 0.4 mg/dL (0.2-1.0); Glomerular Filtration Rate 44 ml/min (=/>90); Glucose Level 88 mg/dL (74-106); Potassium 4.2 mmol/L (3.5-5.1); Protein, Total 5.6 g/dL (6.4-8.2); Sodium Level 130 mmol/L (136-145)
[2022-11-06 05:20] LABS: ALT/SGPT < 10 U/L (16-61)
[2022-11-06 06:33] LABS: Blood Morphology Comment NOT SEEN (NOT SEEN); Platelet Estimate ADEQ
[2022-11-06] MEDS: AZITHROMYCIN IV 500 MG in NA CHLORIDE 0.9% 250 ML IVPB SCH (07:43)
--- NOTE | 2022-11-06 08:40 | RAD REPORT ---
EXAM DESCRIPTION: RAD - Chest Single View - 11/06/2022 5:37 am CLINICAL HISTORY: pneumonia Chest pain. COMPARISON: Chest Single View dated 11/05/2022; Chest Single View dated 11/05/2022; Chest Single View da stuart 10/27/2022; Chest Single View dated 10/24/2022 FINDINGS: Portable technique limits examination quality. Moderate increase in right basilar lung opacification/infiltrate with right pleural effusion since co mparative study. The heart is mildly enlarged in size. Endotracheal tube is at the level of the aorti c arch about 1-2 cm above the joe. Enteric tube descends into the upper abdomen.Left-sided interna l jugular catheter has its tip in the SVC region although it may actually reside within the azygos ve in. IMPRESSION: Moderate worsening right lung base aeration since comparative study.
--- NOTE | 2022-11-06 08:41 | RAD REPORT ---
EXAM DESCRIPTION: RAD - Abdomen 1 View (KUB) - 11/06/2022 5:37 am CLINICAL HISTORY: Placement of NGT/OGT. Post Insertion. Pain COMPARISON: No comparisons FINDINGS: Tip of the enteric tube is in the stomach.
[2022-11-06] MEDS ORDERED: CEFEPIME 1 GM in NA CHLORIDE 0.9% 100 ML IV SCH (09:00)
[2022-11-06] MEDS: AMIODARONE HCL 200 MG TAB PO SCH ×2 (11:11→20:14)
[2022-11-06] MEDS: D5W 1,000 ML IV SCH (16:17)
[2022-11-06] MEDS: ENOXAPARIN 40 MG/0.4 ML SQ SCH (16:17)
[2022-11-06] MEDS ORDERED: VITAL HP 1,000 ML BOT RTH SCH (17:00)
[2022-11-06] MEDS: CEFEPIME 2 GM in NA CHLORIDE 0.9% 100 ML IV SCH (20:13)
[2022-11-07] MEDS ORDERED: METHYLPREDNISOLONE 40 MG INJ IV ONE (00:37)
[2022-11-07] MEDS ORDERED: ALBUMIN HUMAN 25% 50 ML IV ONE (00:37)
[2022-11-07] MEDS: propofoL 1,000 MG/100 ML VIAL IV SCH (02:08)
[2022-11-07 05:14] LABS: Absolute Lymphocytes (CBC) 0.3 K/uL (0.7-4.9); Hematocrit 27.3 % (39.6-49.0); Lymphocytes % 2.1 % (15.3-44.8); MCV 87.2 fL (80-100); MPV 8.9 fL (7.6-11.3); RBC Red Blood Cell Count 3.13 M/uL (4.33-5.43)
[2022-11-07 05:20] LABS: Blood O2 Saturation 96.3 % (92-98.5)
[2022-11-07 05:30] LABS: AST/SGOT 11 U/L (15-37); Albumin 2.3 g/dL (3.4-5.0); Alkaline Phosphatase 82 U/L (45-117); BUN Blood Urea Nitrogen 33 mg/dL (7-18); Bicarbonate 33 mmol/L (21-32); Bilirubin Total 0.5 mg/dL (0.2-1.0); Glomerular Filtration Rate 47 ml/min (=/>90); Glucose Level 232 mg/dL (74-106); Potassium 4.5 mmol/L (3.5-5.1); Protein, Total 6.3 g/dL (6.4-8.2); Sodium Level 130 mmol/L (136-145)
[2022-11-07 05:34] LABS: ALT/SGPT < 10 U/L (16-61)
[2022-11-07] MEDS: METHYLPREDNISOLONE 40 MG INJ IV SCH ×3 (05:44→17:09)
--- NOTE | 2022-11-07 08:03 | RAD REPORT ---
EXAM DESCRIPTION: [facility] [place] Single View11/07/2022 5:37 am CLINICAL HISTORY: intubation COMPARISON: Abdomen 1 View (KUB) dated 11/06/2022; Chest Single View dated 11/06/2022; Chest Single View dated 11/05/2022; Chest Single View dated 11/05/2022 TECHNIQUE: Portable AP view of the chest. FINDINGS: Stable dense right basal consolidation, probably with a component of effusion.Endotracheal tube again terminates 3.5 centimeter above the joe, unchanged. Enteric tube courses towards the d iaphragmatic hiatus, and below the lower film margin. Left IJ CVC in place, with distal aspect curvin g medially, probably cannulating the azygous vein, unchanged. No pneumothorax or left-sided effusion. The cardiomediastinal contours are unremarkable. IMPRESSION: Stable findings as above.
[2022-11-07] MEDS: CEFEPIME 2 GM in NA CHLORIDE 0.9% 100 ML IV SCH ×3 (09:22→20:55)
[2022-11-07] MEDS: AZITHROMYCIN IV 500 MG in NA CHLORIDE 0.9% 250 ML IVPB SCH (09:24)
[2022-11-07] MEDS: AMIODARONE HCL 200 MG TAB PO SCH ×2 (09:24→19:39)
[2022-11-07] MEDS: SCOPOLAMINE HYDROBROMIDE PATCH TD SCH (11:51)
[2022-11-07] MEDS: D5W 1,000 ML IV SCH ×2 (12:56→12:57)
--- NOTE | 2022-11-07 15:31 | RAD REPORT ---
EXAM DESCRIPTION: CT - Head Brain Wo Cont - 11/07/2022 3:20 pm CLINICAL HISTORY: CVA Headache, drowsiness, CVA symptomology COMPARISON: Head Brain Wo Cont dated 11/05/2022; Head Brain Wo Cont dated 09/16/2022 TECHNIQUE: All CT scans are performed using dose optimization technique as appropriate and may inclu de automated exposure control or mA/KV adjustment according to patient size. FINDINGS: No intracranial hemorrhage, hydrocephalus or extra-axial fluid collection.Moderate general ized brain atrophy is present with moderate periventricular and deep white matter chronic microvascul ar ischemic changes.No areas of brain edema or evidence of midline shift. Vertebral atherosclerosis. The paranasal sinuses and mastoids are clear. The calvarium is intact. IMPRESSION: No acute intracranial abnormality. Stable examination since 11/05/2022.
--- NOTE | 2022-11-07 15:55 | RAD REPORT ---
EXAM DESCRIPTION: RAD - Barium Swallow Modified - 11/07/2022 3:46 pm CLINICAL HISTORY: Swallow eval Dysphagia COMPARISON: Abdomen Pelvis Wo Contrast dated 09/16/2019; Chest Single View dated 10/24/2022 TECHNIQUE: The patient was given liquid, semi-solid and solid forms of barium. Lateral view fluorosc opic imaging was performed in conjunction with speech pathology service. FINDINGS: Administered: nectar, honey, pudding Laryngeal penetrationl: Not cleared Aspiration: cough with nectar and honey Pharyngeal residue: Vallecular Premature posterior spillage before the swallow. Aspiration due to poor airway protection Total fluoroscopy time: 1 minutes and 22 seconds
[2022-11-07] MEDS: ENOXAPARIN 40 MG/0.4 ML SQ SCH (17:09)
[2022-11-08] MEDS: METHYLPREDNISOLONE 40 MG INJ IV SCH ×3 (00:19→11:33)
[2022-11-08] MEDS: AZITHROMYCIN IV 500 MG in NA CHLORIDE 0.9% 250 ML IVPB SCH (08:39)
[2022-11-08] MEDS: CEFEPIME 2 GM in NA CHLORIDE 0.9% 100 ML IV SCH (08:39)
--- NOTE | 2022-11-08 08:55 | P.PN ---
Date of Service: 11/07/22 Subjective Patient was extubated. Clinically doing better. Patient with secretions. Physical Examination - Vital Signs Reviewed - Physical Exam General: Severe distress, Unresponsive Respiratory: Diminished, Rhonchi/gurgles Cardiovascular: Regular rate/rhythm, Normal S1 S2, No murmurs Gastrointestinal: Normal bowel sounds, Soft and benign, Non-distended, No tenderness Musculoskeletal: No clubbing, No swelling, No tenderness Neurological: No focal deficits except for generalized weakness and facial droop. Patient was secretions Assessment & Plan - Problems (Diagnosis) (1) Acute respiratory failure with hypoxia and hypercapnia Current Visit: No Status: Acute (2) CHF (congestive heart failure), NYHA class II Current Visit: No Status: Acute Qualifiers: Congestive heart failure type: unspecified Qualified Code(s): I50.9 - Heart failure, unspecified (3) COPD exacerbation Current Visit: No Status: Acute (4) Chronic respiratory failure Current Visit: No Status: Acute Qualifiers: Respiratory failure complication: hypoxia and hypercapnia Qualified Co de(s): J96.11 - Chronic respiratory failure with hypoxia; J96.12 - Chronic respiratory failure with hypercapnia; J96.12 - Chronic respiratory failure with hypercapnia (5) Depression Current Visit: No Status: Acute Qualifiers: Depression Type: major depressive disorder (6) Diabetes mellitus Current Visit: No Status: Acute (7) Respiratory failure with hypoxia and hypercapnia Current Visit: No Status: Acute Qualifiers: Chronicity: chronic Qualified Code(s): J96.11 - Chronic respiratory failure with hypoxia; J96.12 - Chronic respiratory failure with hypercapnia (8) HLD (hyperlipidemia) Current Visit: No Status: Chronic Qualifiers: Hyperlipidemia type: unspecified Qualified Code(s): E78.5 - Hyperlipidemia, unspecified (9) HTN (hypertension) Current Visit: No Status: Chronic Qualifiers: Hypertension type: essential hypertension - Plan Plan: 1. Extubated. Patient doing well off the ventilator. He is having a hard time clearing his secretions. Scopolamine 2. Chest x-ray is stable. 3. Monitor labs-renal function is stable 4. Resume cardiac meds 5. Monitor blood sugars 6. Resume amiodarone 7. CT of the brain does not show an acute stroke and we will do an MRI to further evaluate. 8. GI and DVT prophylaxis
[2022-11-08] MEDS ORDERED: FUROSEMIDE 20 MG/ 2ML VIAL IV ONE (09:00)
[2022-11-08] MEDS ORDERED: METOPROLOL TARTRATE 5 MG/5 ML INJ IV STA (09:00)
[2022-11-08] MEDS: AMIODARONE HCL 200 MG TAB PO SCH ×2 (09:00→20:51)
[2022-11-08] MEDS ORDERED: Ciprofloxacin 200mg IV 200 MG/100 ML IV.SOLN. IV SCH (10:00)
[2022-11-08] MEDS: CIPROFLOXACIN 400mg IV 400 MG/200 ML BAG IV SCH ×2 (10:11→20:51)
[2022-11-08] MEDS: IPRATROPIUM BROM 0.5MG/2.5ML NEB SCH ×3 (10:12→19:55)
[2022-11-08] MEDS ORDERED: HYDRALAZINE HCL 20 MG/ML VIAL IV PRN (10:30)
--- NOTE | 2022-11-08 11:07 | RAD REPORT ---
EXAM DESCRIPTION: MRI - Brain Wo Cont - 11/08/2022 9:52 am CLINICAL HISTORY: CVA COMPARISON: Head Brain Wo Cont dated 11/07/2022 TECHNIQUE: Sagittal T1-weighted images were obtained along with PD/heavily T2-weighted and T2-FLAIR images. Axial DWI and ADC mapping sequences were also obtained along with coronal heavily T2-weighted images were obtained. FINDINGS: No intracranial hemorrhage, mass or acute infarction. There is no edema or shift of midlin e structures. No extra-axial fluid collections. Signal voids are seen as a normal finding in the loren r intracranial vessels. Moderate chronic small vessel ischemic changes. Age advanced cerebral atrophy . Bilateral mastoid fluid. IMPRESSION: No acute intracranial abnormality. Specifically, no evidence of acute infarct. Moderate chronic small vessel ischemic changes and age advanced cerebral atrophy.
--- NOTE | 2022-11-08 11:45 | P.CNS ---
Date of Consult: 11/07/22 Reason for Consult: Respiratory failure Chief Complaint: Acute respiratory failure; severe hypoglycemia History of Present Illness: Patient is 77 years of age multiple medical problems recurrent hospital admissions with congestive heart failure he does have a BiPAP at home he was admitted with altered mental status respiratory failure was intubated this morning when I came in the afternoon patient was extubated apparently he may have had a new left-sided stroke involving the left side of his body with weakness this is all new history of A-fib speech is impaired relatives at the bedside Allergies caffeine Allergy (Verified 09/16/22 23:26) Anaphylaxis codeine Allergy (Verified 09/16/22 23:26) Anaphylaxis Home Medications: Arformoterol Tartrate [Brovana] 1 amp NEB BID 04/04/22 Atorvastatin Calcium [Lipitor*] 10 mg PO BEDTIME 04/04/22 Buspirone HCl [Buspar*] 5 mg PO TID 04/04/22 Divalproex [Depakote Sprinkle*] 625 mg PO BID 04/04/22 Doxepin HCl [Sinequan*] 25 mg PO BEDTIME 04/04/22 Insulin Degludec [Tresiba] 55 unit SQ BEDTIME 04/04/22 Levalbuterol HCl [Xopenex] 1 amp NEB Q6HP PRN 04/04/22 Levothyroxine [Synthroid*] 0.1 mg PO DAILY 04/04/22 Melatonin 5 mg PO BEDTIME 04/04/22 Memantine HCl [Namenda*] 10 mg PO BEDTIME 04/04/22 Polyethyl Gly 3350 [Glycolax*] 17 g PO BID 04/04/22 Potassium Oral Tab [Klor-Con 10 mEq Tab*] 20 meq PO DAILY 04/04/22 Rivaroxaban [Xarelto] 20 mg PO BEDTIME 04/04/22 Venlafaxine HCl 75 mg PO BID 04/04/22 carvediloL [Coreg*] 12.5 mg PO BID 04/04/22 Tamsulosin [Flomax*] 0.4 mg PO BEDTIME 30 Days #30 cap 09/19/22 Hydrocodone Bit/Acetaminophen [[place] 7.5-325 Tablet] 1 each PO Q8HP PRN 10/22/22 Sennosides [Senna] 2 tab PO BID 10/22/22 Sitagliptin Phosphate [Januvia] 100 mg PO DAILY 10/22/22 Timolol Maleate/Pf [Timolol Maleate 0.5% Eye Drop] 1 drop EACH EYE DAILY 10/22/22 Amiodarone HCl [Cordarone*] 200 mg PO BID #60 tab 10/26/22 Furosemide [Lasix] 20 mg PO BIDL #60 tab 10/26/22 Sodium Chloride Tab [Sodium Chloride*] 1 gm PO BID #60 tab 10/26/22 acetaZOLAMIDE [Acetazolamide] 125 mg PO DAILY #30 tab 10/26/22 - Past Medical/Surgical History Diabetic: Yes -: Severe COPD, Pt has a BIPAP -: DM II -: HTN -: HLD -: Bipolar -: Systolic CHF -: CKD III (Dr. Dempsey) -: Heart stents Psychosocial/ Personal History: [facility] resident - Family History Mother Medical History: Stroke Notes: Stroke - Social History Smoking Status: Unknown if ever smoked Alcohol use: No CD- Drugs: No Caffeine use: No Review of Systems General: Weakness Respiratory: Shortness of Breath Physical Examination Temp Pulse Resp BP Pulse Ox 100.7 F 72 18 192/87 H 97 11/08/22 08:53 11/08/22 10:10 11/08/22 10:00 11/08/22 10:10 11/08/22 10:00 General: Alert, Oriented x3 Neck: Supple Respiratory: Clear to auscultation bilaterally, Diminished Cardiovascular: Regular rate/rhythm, Edema Neurological: Other (Patient has weakness of his left side with impaired speech) - Problems (1) Respiratory failure Current Visit: No Status: Acute Plan: Patient is 77 years of age admitted with respiratory distress was intubated and successfully extubated patient has chronic renal failure mildly anemic blood pressure is elevated no obvious stroke on the MRI aspiration noticed on swallow study chest x-ray may have a pleural effusion on the right side pneumonia is isolated in the urine patient is on Cipro patient has a history of congestive heart failure DC steroid apparently there is a history of hypoglycemia patient has been on bronchodilators due to hypercapnic respiratory failure unable to do pulmonary function testing Qualifiers: Chronicity: acute on chronic Respiratory failure complication: hypercapnia Qualified Code(s): J96.22 - Acute and chronic respiratory failure with hypercapnia
[2022-11-08] MEDS ORDERED: FUROSEMIDE 40 MG/4 ML VIAL IV ONE (14:30)
[2022-11-08] MEDS ORDERED: METOPROLOL TARTRATE 5 MG/5 ML INJ IV PRN (17:32)
--- NOTE | 2022-11-08 17:34 | RAD REPORT ---
EXAM DESCRIPTION: ALEXAChest Single View11/08/2022 2:24 pm CLINICAL HISTORY: Post extubation COMPARISON: Chest Single View dated 11/07/2022; Abdomen 1 View (KUB) dated 11/06/2022; Chest Single View dated 11/06/2022; Chest Single View dated 11/05/2022 TECHNIQUE: Portable AP view of the chest. FINDINGS: Improved aeration in the right basal lung, with residual mild patchy airspace opacities an d trace effusion. Patchy mild opacities are now present on the left, with prominent central interstit ium. Interval extubation and removal of the enteric tube. Unchanged course of the left IJ CVC. No pne umothorax or effusion. The cardiomediastinal contours are unremarkable. IMPRESSION: Improved aeration in the right basal lung. Central interstitial prominence and bilateral central patchy opacities, most suggestive of a degree of pulmonary edema.
[2022-11-08] MEDS ORDERED: CLONIDINE 0.2 MG/PATCH TD SCH (17:45)
[2022-11-08] MEDS: ENOXAPARIN 40 MG/0.4 ML SQ SCH (17:55)
[2022-11-08] MEDS: HYDRALAZINE HCL 20 MG/ML VIAL IV PRN (22:53)
[2022-11-08] MEDS: MELATONIN 5 MG TABLET PO PRN (23:49)
[2022-11-09] MEDS: METOPROLOL TARTRATE 5 MG/5 ML INJ IV PRN ×2 (00:11→20:30)
[2022-11-09] MEDS: FUROSEMIDE 20 MG/ 2ML VIAL IV SCH ×3 (00:13→17:09)
[2022-11-09] MEDS: IPRATROPIUM BROM 0.5MG/2.5ML NEB SCH ×4 (01:50→20:00)
[2022-11-09 05:52] LABS: Absolute Lymphocytes (CBC) 0.6 K/uL (0.7-4.9); Hematocrit 26.6 % (39.6-49.0); Lymphocytes % 4.5 % (15.3-44.8); MCV 86.7 fL (80-100); MPV 8.8 fL (7.6-11.3); RBC Red Blood Cell Count 3.07 M/uL (4.33-5.43)
[2022-11-09 06:27] LABS: Albumin 2.4 g/dL (3.4-5.0); Bilirubin Total 0.4 mg/dL (0.2-1.0); Magnesium 2.2 mg/dL (1.6-2.4); Potassium 3.8 mmol/L (3.5-5.1); Protein, Total 6.4 g/dL (6.4-8.2)
[2022-11-09] MEDS ORDERED: POTASSIUM 25 MEQ EFFERV TAB PO ONE (07:12)
--- NOTE | 2022-11-09 07:26 | RAD REPORT ---
EXAM DESCRIPTION: RAD - Chest Single View - 11/09/2022 7:02 am CLINICAL HISTORY: pneumonia COMPARISON: Chest Single View dated 11/08/2022; Chest Single View dated 11/07/2022; Abdomen 1 View (KUB ) dated 11/06/2022; Chest Single View dated 11/06/2022; Chest For Pe Angio dated 10/19/2022 FINDINGS: Lines: Similar position of the left IJ approach central line. The tip is in similar positi oning and may terminate in the azygous or deflect back into the left brachiocephalic vein. Lungs: Bilateral interstitial and airspace disease, somewhat eccentric to the right similar to prior. Pleural: No significant pleural effusions or pneumothorax. Cardiac: Similar cardiomegaly. Mediastinum: Within normal limits. Bones: No acute fractures. Other: None IMPRESSION: Bilateral interstitial and airspace disease without significant change compared with 06/2023.
[2022-11-09] MEDS: CIPROFLOXACIN 400mg IV 400 MG/200 ML BAG IV SCH ×2 (08:40→20:30)
[2022-11-09] MEDS: AMIODARONE HCL 200 MG TAB PO SCH ×2 (08:40→20:30)
[2022-11-09] MEDS: ENOXAPARIN 40 MG/0.4 ML SQ SCH (17:13)
[2022-11-09] MEDS: MELATONIN 5 MG TABLET PO PRN (20:30)
[2022-11-09] MEDS: ACETAMINOPHEN 650MG/RECT SUPP PR PRN (21:39)
--- NOTE | 2022-11-09 21:45 | P.PN ---
Date of Service: 11/08/22 Subjective Patient with dysarthria. Patient has the ability to say some words but it is very garbled and really hard to make out. He has had some difficulties with this possibly at the shelter and we will communicate this with them. Otherwise, he answers most of my questions fairly appropriately. Patient is awake and alert. Imaging studies pending again of the brain. Continue with physical therapy and work on trying to get him back to the nursing facility at [facility] over the next few days. Discussed with family regarding DNR status as well. Physical Examination - Vital Signs Reviewed - Physical Exam General: Awake, alert, and oriented to person and place as well as time Respiratory: diminished breath sounds on the right but otherwise clear Cardiovascular: Regular rate/rhythm, Normal S1 S2, No murmurs Gastrointestinal: Normal bowel sounds, Soft and benign, Non-distended, No tenderness Musculoskeletal: No clubbing, No swelling, No tenderness Neurological: no focal deficits but dysarthric. patient is answering my questions but having a difficult time understanding what he is saying. Assessment & Plan - Problems (Diagnosis) (1) Acute respiratory failure with hypoxia and hypercapnia Current Visit: No Status: Acute (2) CHF (congestive heart failure), NYHA class II Current Visit: No Status: Acute Qualifiers: Congestive heart failure type: unspecified Qualified Code(s): I50.9 - Heart failure, unspecified (3) COPD exacerbation Current Visit: No Status: Acute (4) Chronic respiratory failure Current Visit: No Status: Acute Qualifiers: Respiratory failure complication: hypoxia and hypercapnia Qualified Code(s): J96.11 - Chronic respiratory failure with hypoxia; J96.12 - Chronic respiratory failure with hypercapnia; J96.12 - Chronic respiratory failure with hypercapnia (5) Depression Current Visit: No Status: Acute Qualifiers: Depression Type: major depressive disorder (6) Diabetes mellitus Current Visit: No Status: Acute (7) Respiratory failure with hypoxia and hypercapnia Current Visit: No Status: Acute Qualifiers: Chronicity: chronic Qualified Code(s): J96.11 - Chronic respiratory failure with hypoxia; J96.12 - Chronic respiratory failure with hypercapnia (8) HLD (hyperlipidemia) Current Visit: No Status: Chronic Qualifiers: Hyperlipidemia type: unspecified Qualified Code(s): E78.5 - Hyperlipidemia, unspecified (9) HTN (hypertension) Current Visit: No Status: Chronic Qualifiers: Hypertension type: essential hypertension - Plan Plan: 1. Scopolamine for secretions; continue with ipratropium 2. Chest x-ray is stable. 3. Labs are stable 4. Resume cardiac meds 5. Monitor blood sugars 6. Resume amiodarone 7. CT of the brain does not show an acute stroke and MRI was negative 8. Continue w/ PT/ST/OT 9. Addressed code status-patient is a DNR 10. GI and DVT prophylaxis
--- NOTE | 2022-11-09 21:47 | P.PN ---
Date of Service: 11/09/22 Subjective Patient continuing to do well. Patient with dysarthria-but improved. Patient has the ability to say some words but really hard to make out-dysarthria has improved. Otherwise, he answers most of my questions fairly appropriately. Patient is awake and alert. Imaging studies pending again of the brain. Continue with physical therapy and work on trying to get him back to the nursing facility at [facility] over the next few days. Discussed with family regarding DNR status as well. They are in agreement Physical Examination - Vital Signs Reviewed - Physical Exam General: Awake, alert, and oriented to person and place as well as time Respiratory: diminished breath sounds on the right but otherwise clear Cardiovascular: Regular rate/rhythm, Normal S1 S2, No murmurs Gastrointestinal: Normal bowel sounds, Soft and benign, Non-distended, No tenderness Musculoskeletal: No clubbing, No swelling, No tenderness Neurological: no focal deficits but dysarthric. patient is answering my questions but having a difficult time understanding what he is saying. Assessment & Plan - Problems (Diagnosis) (1) Acute respiratory failure with hypoxia and hypercapnia Current Visit: No Status: Acute (2) CHF (congestive heart failure), NYHA class II Current Visit: No Status: Acute Qualifiers: Congestive heart failure type: unspecified Qualified Code(s): I50.9 - Heart failure, unspecified (3) COPD exacerbation Current Visit: No Status: Acute (4) Chronic respiratory failure Current Visit: No Status: Acute Qualifiers: Respiratory failure complication: hypoxia and hypercapnia Qualified Code(s): J96.11 - Chronic respiratory failure with hypoxia; J96.12 - Chronic respiratory failure with hypercapnia; J96.12 - Chronic respiratory failure with hypercapnia (5) Depression Current Visit: No Status: Acute Qualifiers: Depression Type: major depressive disorder (6) Diabetes mellitus Current Visit: No Status: Acute (7) Respiratory failure with hypoxia and hypercapnia Current Visit: No Status: Acute Qualifiers: Chronicity: chronic Qualified Code(s): J96.11 - Chronic respiratory failure with hypoxia; J96.12 - Chronic respiratory failure with hypercapnia (8) HLD (hyperlipidemia) Current Visit: No Status: Chronic Qualifiers: Hyperlipidemia type: unspecified Qualified Code(s): E78.5 - Hyperlipidemia, unspecified (9) HTN (hypertension) Current Visit: No Status: Chronic Qualifiers: Hypertension type: essential hypertension - Plan Pt improved; continue w/ POC as mentioned below: 1. Scopolamine for secretions; continue with ipratropium 2. Chest x-ray is stable. 3. Labs are stable 4. Resume cardiac meds 5. Monitor blood sugars 6. Resume amiodarone 7. CT of the brain does not show an acute stroke and MRI was negative 8. Continue w/ PT/ST/OT 9. Addressed code status-patient is a DNR 10. GI and DVT prophylaxis
[2022-11-10] MEDS: IPRATROPIUM BROM 0.5MG/2.5ML NEB SCH ×4 (03:00→19:30)
[2022-11-10] MEDS: FUROSEMIDE 20 MG/ 2ML VIAL IV SCH ×3 (03:11→16:49)
[2022-11-10] MEDS: INSULIN -REGULAR HUMAN 50 UNIT/0.5 ML ML SQ SCH ×4 (07:30→21:40)
[2022-11-10] MEDS: AMIODARONE HCL 200 MG TAB PO SCH ×2 (09:31→21:05)
[2022-11-10] MEDS: HYDRALAZINE HCL 20 MG/ML VIAL IV PRN (09:35)
[2022-11-10] MEDS: CIPROFLOXACIN 400mg IV 400 MG/200 ML BAG IV SCH (09:43)
[2022-11-10 10:14] LABS: Albumin 2.4 g/dL (3.4-5.0); Bilirubin Total 0.6 mg/dL (0.2-1.0); Potassium 3.2 mmol/L (3.5-5.1); Protein, Total 6.4 g/dL (6.4-8.2)
[2022-11-10] MEDS: SCOPOLAMINE HYDROBROMIDE PATCH TD SCH (10:17)
[2022-11-10] MEDS: METOPROLOL TARTRATE 5 MG/5 ML INJ IV PRN (11:15)
[2022-11-10] MEDS ORDERED: METOPROLOL TARTRATE 5 MG/5 ML INJ IV STA (11:49)
[2022-11-10] MEDS ORDERED: AMLODIPINE 5 MG TAB PO ONE (12:00)
[2022-11-10] MEDS ORDERED: METOPROLOL TAR 50 MG TAB PO ONE (12:00)
[2022-11-10 13:17] LABS: Absolute Lymphocytes (CBC) 0.6 K/uL (0.7-4.9); Hematocrit 28.2 % (39.6-49.0); Lymphocytes % 5.4 % (15.3-44.8); MCV 86.7 fL (80-100); MPV 8.2 fL (7.6-11.3); RBC Red Blood Cell Count 3.26 M/uL (4.33-5.43)
[2022-11-10 13:31] LABS: Magnesium 1.6 mg/dL (1.6-2.4); Potassium 3.2 mmol/L (3.5-5.1)
[2022-11-10 14:52] LABS: Blood Morphology Comment NOT SEEN (NOT SEEN); Platelet Estimate ADEQ
[2022-11-10] MEDS: ENOXAPARIN 40 MG/0.4 ML SQ SCH (16:50)
[2022-11-10] MEDS ORDERED: METOPROLOL TAR 50 MG TAB PO SCH (18:00)
[2022-11-10] MEDS: CIPROFLOXACIN HCL 500 MG TAB PO SCH (21:05)
[2022-11-10] MEDS: MELATONIN 5 MG TABLET PO PRN (21:05)
[2022-11-11] MEDS: FUROSEMIDE 20 MG/ 2ML VIAL IV SCH (01:30)
[2022-11-11] MEDS: IPRATROPIUM BROM 0.5MG/2.5ML NEB SCH ×4 (01:45→19:52)
--- NOTE | 2022-11-11 05:10 | P.PN ---
Date of Service: 11/10/22 Subjective Patient had an episode of atrial fibrillation with rapid ventricular response. Blood pressure significantly elevated. Add Lopressor back but patient did have bradycardia on arrival. Monitor heart rate closely. Added amlodipine and losartan. Patient appears to be in good spirits although patient has newly developed dysarthria. Speech has improved. I will go ahead and DC is to follow up me as he had a large amount of secretions right after extubation but he looks like he has cleared those up. Continue with ipratropium. Patient is answering my questions appropriately. His daughter seemed to understand him better. Also waiting for return phone call from Orthopedics on removing the splint and removing sutures. Continue with physical therapy and work on trying to get him back to the nursing facility at [facility] over the next few days. Discussed with family regarding DNR status as well. They are in agreement Physical Examination - Vital Signs Reviewed - Physical Exam General: Awake, alert, and oriented to person and place as well as time Respiratory: diminished breath sounds on the right but otherwise clear Cardiovascular: Regular rate/rhythm, Normal S1 S2, No murmurs Gastrointestinal: Normal bowel sounds, Soft and benign, Non-distended, No tenderness Musculoskeletal: No clubbing, No swelling, No tenderness Neurological: no focal deficits but dysarthric. patient is answering my questions but having a difficult time understanding what he is saying. Assessment & Plan - Problems (Diagnosis) (1) Acute respiratory failure with hypoxia and hypercapnia secondary to aspiration pneumonia Current Visit: No Status: Acute (2) CHF (congestive heart failure), NYHA class II Current Visit: No Status: Acute Qualifiers: Congestive heart failure type: unspecified Qualified Code(s): I50.9 - Heart failure, unspecified (3) Atrial fibrillation with rapid ventricular response Current Visit: No Status: Acute (4) dysarthria Current Visit: No Status: Acute (5) Depression Current Visit: No Status: Acute Qualifiers: Depression Type: major depressive disorder (6) Diabetes mellitus Current Visit: No Status: Acute (7) generalized weakness Current Visit: No Status: Acute (8) HLD (hyperlipidemia) Current Visit: No Status: Chronic Qualifiers: Hyperlipidemia type: unspecified Qualified Code(s): E78.5 - Hyperlipidemia, unspecified (9) HTN (hypertension) Current Visit: No Status: Chronic Qualifiers: Hypertension type: essential hypertension - Plan Pt improved; continue w/ POC as mentioned below: 1. Patient's secretions are improved. DC scopolamine. Continue with iprat ropium. 2. Chest x-ray is stable. Patient had a right lower lobe and middle lobe pneumonia which is improved 3. Labs are stable 4. Resume cardiac meds 5. Monitor blood sugars 6. Resume amiodarone; added beta catalino but will monitor heart rate. Patient had episode of AFib with RVR. Heart rate does get down with the beta-blockers as on arrival he was in the 50s. Will also adjust blood pressure medications for better control. 7. CT of the brain does not show an acute stroke and MRI was negative 8. Continue w/ PT/ST/OT 9. Addressed code status-patient is a DNR 10. GI and DVT prophylaxis Disposition is back to [facility]. Patient is a do not attempt resuscitation. Will need to continue with physical therapy and speech therapy at discharge over at [facility].
[2022-11-11] MEDS: HYDRALAZINE HCL 20 MG/ML VIAL IV PRN (05:20)
[2022-11-11] MEDS: LOSARTAN POTASSIUM 50 MG TABLET PO SCH ×2 (07:01→09:19)
[2022-11-11] MEDS: METOPROLOL TAR 50 MG TAB PO SCH ×2 (07:04→17:59)
[2022-11-11 07:22] LABS: Albumin 2.5 g/dL (3.4-5.0); Bilirubin Total 0.6 mg/dL (0.2-1.0); Magnesium 1.6 mg/dL (1.6-2.4); Protein, Total 6.3 g/dL (6.4-8.2)
[2022-11-11 07:29] LABS: Potassium 2.8 mmol/L (3.5-5.1)
[2022-11-11] MEDS: INSULIN -REGULAR HUMAN 50 UNIT/0.5 ML ML SQ SCH ×4 (07:30→20:52)
--- NOTE | 2022-11-11 07:46 | RAD REPORT ---
EXAM DESCRIPTION: Luis Eduardo Single View11/11/2022 5:44 am CLINICAL HISTORY: Chest pain COMPARISON: none FINDINGS: No significant change in the bilateral pulmonary opacities and cardiomegaly The tip of a central venous line male points cranially presumably within the proximal superior vena c tammie. IMPRESSION: No significant change in the bilateral pulmonary opacities which may represent pulmonary edema or pneumonia
[2022-11-11] MEDS: KCL 20 MEQ/100 mL IVPB 20 MEQ/100 ML BAG IV SCH ×3 (09:18→13:22)
[2022-11-11] MEDS ORDERED: NA CHLORIDE 0.9% 250 ML ONE (09:19)
[2022-11-11] MEDS: AMLODIPINE 10 MG TAB PO SCH (09:19)
[2022-11-11] MEDS: FUROSEMIDE 40 MG TABLET PO SCH (09:19)
[2022-11-11] MEDS: CIPROFLOXACIN HCL 500 MG TAB PO SCH ×2 (09:19→20:51)
[2022-11-11] MEDS: AMIODARONE HCL 200 MG TAB PO SCH ×2 (09:19→20:52)
--- NOTE | 2022-11-11 10:23 | P.PN ---
Subjective Date of Service: 11/11/22 Chief Complaint: Acute respiratory failure; severe hypoglycemia No acute events overnight. He appears to be improving clinically. He denies any concerns this morning. He has dysarthria noted on exam, but I am able to comprehend his speech. Per charge authorizerAudrey, his dysarthria has improved compared to yesterday. Review of Systems 10-point ROS is otherwise unremarkable Neurological: Change in Speech (dysarthria) Physical Examination - Vital Signs Temperature: 97.5 F Blood Pressure: 194/66 Pulse: 68 Respirations: 16 Pulse Ox (%): 96 - Physical Exam General: Alert, In no apparent distress, Oriented x3 HEENT: Atraumatic, Mucous membr. moist/pink, EOMI, Sclerae nonicteric Neck: JVD not distended Respiratory: Diminished, Rhonchi/gurgles (scattered, faint) Cardiovascular: Regular rate/rhythm, Normal S1 S2, No gallops, No rubs, No murmurs, Edema (1+ BLE) Gastrointestinal: Normal bowel sounds, Soft and benign, Non-distended, No tenderness, No rebound, No guarding Musculoskeletal: No clubbing Integumentary: No rashes Neurological: Normal speech, Normal strength at 5/5 x4 extr, Sensation intact, Cranial nerves 3-12 intact, Normal affect, Other (dysarthria noted) - Studies Microbiology Data (last 24 hrs): 11/05/22 11:56 Blood - Blood Aerobic Blood Culture - Final No growth in 5 days. 11/05/22 11:56 Blood - Blood Anaerobic Blood Culture - Final No growth in 5 days. 11/05/22 11:54 Blood - Blood Aerobic Blood Culture - Final 11/05/22 11:54 Blood - Blood Blood Culture Gram Stain - Final 11/05/22 11:54 Blood - Blood Anaerobic Blood Culture - Final No growth in 5 days. Medications List Reviewed: Yes Assessment And Plan - Plan # Acute on Chronic Hypercapnic Respiratory Failure - likely secondary to Acute on Chronic Decompensated Systolic Congestive Heart Failure with Reduced Ejection Fraction +/- Aspiration Pneumonia # Chronic Respiratory Failure secondary to Chronic Obstructive Pulmonary Disease on Home Oxygen (3 L) - Evaluation thus far: - Procalcitonin = 2.07 -> 0.05 - ABG (11/07)= pH 7.34, PCO2 57.7, PO2 92.8 - Chest x-ray (11/11)= "cardiomegaly with possible interstitial edema and bilateral pleural effusions" - Management plan: - Consulted Pulmonary Medicine and spoke with Dr. Almaguer - recommendations appreciated - Consulted Cardiology - recommendations appreciated - Continue furosemide for diuresis - Continue home spironolactone - Consulted Respiratory Therapy - Supplemental oxygen to maintain SpO2 > 92% - No longer on BiPAP - Encouraged incentive spirometry # Severe Sepsis likely secondary to Multi-Drug Resistant Pseudomonas Aeruginosa Urinary Tract Infection +/- Aspiration Pneumonia Although currently not meeting sepsis criteria, he previously met criteria based on temperature > 100.4 F, HR > 90 bpm, RR > 20 breaths/min, and WBC > 12,000 and the suspected source is UTI vs pneumonia. Severe sepsis is suspected due to concern for tissue hypoperfusion/organ dysfunction based on acute respiratory failure requiring intubation and coagulopathy (INR > 1.5). - Sepsis order set was initiated - Initial Lactate was 0.7 - Blood cultures drawn - Broad spectrum antibiotics started: Cefepime + Azithromycin -> Ciprofloxacin - In regards to fluids: - 30 mL/kg of IV fluids was not administered given SBP > 90, MAP > 65, lactic acid < 4 # Suspected KDIGO Stage I Acute Kidney Injury on Chronic Kidney Disease Stage III due to Cardiorenal Syndrome - resolved # Microscopic Hematuria - Creatinine = 1.58 -> 1.34 -> 1.60 -> 1.51 -> 1.23 -> 1.06 -> 1.09 -> 0.97 - Urinalysis = 2+ blood, nitrite positive, 2+ leukocyte esterase, 21-50 RBCs, 20-50 WBCs, 20-50 bacteria, 1+ protein - Ordered repeat urinalysis this morning to evaluate microscopic hematuria - Diuretics as mentioned above - Monitor creatinine and urine output - If worsening, obtain renal ultrasound - Renally dose medications # Dysarthria - Evaluation thus far: - CT head (11/05) = "no acute intracranial abnormality is seen" - CT head (11/07) = "no acute intracranial abnormality. Stable examination since 11/05/2022." - MRI brain (11/08) = "no acute intracranial abnormality. Specifically, no evidence of acute infarct. Moderate chronic small vessel ischemic changes and age advanced cerebral atrophy." - Management plan: - Consulted Neurology and spoke with Dr. Jane - [place] for consult - Will try to consult Dr. Royal # Chronic Atrial Fibrillation - Continue home amiodarone, metoprolol - Restart home rivaroxaban # Type II Diabetes Mellitus - Continue correction scale insulin # Hypertension - Continue home amlodipine, losartan, metoprolol # Hypothyroidism # Dyslipidemia # Benign Prostatic Hyperplasia # Bipolar Disorder # Depression - Reconcile home medications once verified Paul Rey M.D.
[2022-11-11 11:10] LABS: Arterial Blood Carboxyhemoglob 2.2 % (0-1.5); Blood O2 Saturation 97.1 % (92-98.5)
[2022-11-11 12:37] LABS: Specific Gravity 1.009 (1.005-1.030); Urine Bacteria <20 /HPF (<20); Urine Bilirubin NEGATIVE (Negative); Urine Blood Negative (Negative); Urine Clarity Clear (Clear); Urine Color Light-Yellow (Yellow); Urine Glucose NEGATIVE (Negative); Urine Protein 1+ (Negative); Urine RBC <5 /HPF (None Seen); Urine Urobilinogen Normal (Normal); Urine pH 7.5 (5.0-7.0)
[2022-11-11] MEDS: METOPROLOL TARTRATE 5 MG/5 ML INJ IV PRN (13:22)
[2022-11-11] MEDS: RIVAROXABAN 20 MG TABLET PO SCH (20:51)
[2022-11-11] MEDS: MELATONIN 5 MG TABLET PO PRN (20:57)
[2022-11-11] MEDS ORDERED: POTASSIUM CL SA 10 MEQ TAB PO ONE (21:00)
[2022-11-12] MEDS: IPRATROPIUM BROM 0.5MG/2.5ML NEB SCH ×4 (01:19→19:32)
[2022-11-12] MEDS: HYDRALAZINE HCL 20 MG/ML VIAL IV PRN (02:01)
[2022-11-12 04:31] LABS: Potassium 3.6 mmol/L (3.5-5.1)
[2022-11-12] MEDS ORDERED: POTASSIUM CL SA 10 MEQ TAB PO ONE (06:00)
[2022-11-12] MEDS: METOPROLOL TAR 50 MG TAB PO SCH ×2 (06:03→17:47)
[2022-11-12] MEDS: INSULIN -REGULAR HUMAN 50 UNIT/0.5 ML ML SQ SCH ×4 (07:30→20:49)
[2022-11-12] MEDS: FUROSEMIDE 40 MG TABLET PO SCH (10:03)
[2022-11-12] MEDS: AMLODIPINE 10 MG TAB PO SCH (10:04)
[2022-11-12] MEDS: LOSARTAN POTASSIUM 50 MG TABLET PO SCH (10:04)
[2022-11-12] MEDS: CIPROFLOXACIN HCL 500 MG TAB PO SCH ×2 (10:04→20:49)
[2022-11-12] MEDS: AMIODARONE HCL 200 MG TAB PO SCH ×2 (10:04→20:49)
--- NOTE | 2022-11-12 13:19 | P.CNS ---
Date of Consult: 11/12/22 PC: I was asked to see this 77-year-old male in regards to removal of some surgical aixa which was lower leg. HPC: Patient apparently had a fall, injuring his right lower leg. He had numerous lacerations both superficial and deep. PSHx: NAD Social Hx: Allergic to caffeine and codeine Sys R: No specific complaints, says he is ready to go O/E: Awake alert vital signs are stable HEENT: Negative Chest: Chest movement appears equal bilaterally Abd: NAD [place]: Numerous healing lacerations with scabs. On the superior portion has some that have some on the superior portion has some that have some nylon sutures in them. All these wounds are essentially healing, or healed. Impression: Wounds to lower leg, appear healed Plan: I have looked at these wounds, there are no aixa involved. The nurses will remove the rest of the sutures. There is old crusting and scabs that have been under this dressing for quite a while. Recommends Lubriderm, Haley, to the skin itself. He is free to follow-up with wound care if he dislikes or if he has any problems.
--- NOTE | 2022-11-12 16:44 | P.PN ---
Subjective Date of Service: 11/12/22 Chief Complaint: Acute respiratory failure; severe hypoglycemia No acute events overnight. He appears to be improving clinically. His dysarthria has nearly resolved. He reports mild orthopnea, but otherwise, he feels well. He denies any chest pain, palpitations, or shortness of breath. Review of Systems 10-point ROS is otherwise unremarkable Cardiovascular: Orthopnea, Edema Physical Examination - Vital Signs Temperature: 97.8 F Blood Pressure: 183/79 Pulse: 59 Respirations: 17 Pulse Ox (%): 100 - Studies Medications List Reviewed: Yes Assessment And Plan - Plan - Physical Exam General: Alert, In no apparent distress, Oriented x3 HEENT: Atraumatic, EOMI, Sclerae nonicteric Neck: JVD not distended Respiratory: Diminished, Rhonchi/gurgles (scattered, faint) Cardiovascular: Regular rate/rhythm, Normal S1 S2, Edema (1+ BLE) Gastrointestinal: Normal bowel sounds, Soft, Non-distended, No tenderness Musculoskeletal: No clubbing Integumentary: No rashes Neurological: Normal speech, Normal strength at 5/5 x4 extr, Sensation intact, Cranial nerves 3-12 intact, Normal affect, Other (dysarthria resolved) # Acute on Chronic Hypercapnic Respiratory Failure - likely secondary to Acute on Chronic Decompensated Systolic Congestive Heart Failure with Reduced Ejection Fraction +/- Aspiration Pneumonia # Chronic Respiratory Failure secondary to Chronic Obstructive Pulmonary Disease on Home Oxygen (3 L) - Evaluation thus far: - Procalcitonin = 2.07 -> 0.05 - ABG (11/07)= pH 7.34, PCO2 57.7, PO2 92.8 - Chest x-ray (11/11)= "cardiomegaly with possible interstitial edema and bilateral pleural effusions" - Management plan: - Consulted Pulmonary Medicine and spoke with Dr. Almaguer - recommendations appreciated - Consulted Cardiology - recommendations appreciated - Continue furosemide for diuresis - Consulted Respiratory Therapy - Supplemental oxygen to maintain SpO2 > 92% - No longer on BiPAP - Encouraged incentive spirometry # Severe Sepsis likely secondary to Multi-Drug Resistant Pseudomonas Aeruginosa Urinary Tract Infection +/- Aspiration Pneumonia Although currently not meeting sepsis criteria, he previously met criteria based on temperature > 100.4 F, HR > 90 bpm, RR > 20 breaths/min, and WBC > 12,000 and the suspected source is UTI vs pneumonia. Severe sepsis is suspected due to concern for tissue hypoperfusion/organ dysfunction based on acute respiratory failure requiring intubation and coagulopathy (INR > 1.5). - Sepsis order set was initiated - Initial Lactate was 0.7 - Blood cultures drawn - Broad spectrum antibiotics started: Cefepime + Azithromycin -> Ciprofloxacin - In regards to fluids: - 30 mL/kg of IV fluids was not administered given SBP > 90, MAP > 65, lactic acid < 4 # KDIGO Stage I Acute Kidney Injury on Chronic Kidney Disease Stage III due to Cardiorenal Syndrome - resolved - Creatinine = 1.58 -> 1.34 -> 1.60 -> 1.51 -> 1.23 -> 1.06 -> 1.09 -> 0.97 - Urinalysis = 2+ blood, nitrite positive, 2+ leukocyte esterase, 21-50 RBCs, 20-50 WBCs, 20-50 bacteria, 1+ protein - Repeat urinalysis with < 5 RBCs - Diuretics as mentioned above - Monitor creatinine and urine output - If worsening, obtain renal ultrasound - Renally dose medications # Dysarthria - resolved - Evaluation thus far: - CT head (11/05) = "no acute intracranial abnormality is seen" - CT head (11/07) = "no acute intracranial abnormality. Stable examination since 11/05/2022." - MRI brain (11/08) = "no acute intracranial abnormality. Specifically, no evidence of acute infarct. Moderate chronic small vessel ischemic changes and age advanced cerebral atrophy." - Management plan: - Consulted Neurology and spoke with Dr. Jane - [place] and unavailable for consult - Tried to consult Dr. Royal, but he is also unavailable for consult - At this time, dysarthria has completely resolved. Will opt for close outpatient Neurology follow-up and evaluation # Recent Left Tibula/Fibula Fracture s/p Surgery at [facility] - He is due to have aixa/splint removed - Consulted General Surgery and spoke with Dr. Echavarria - recommendations appreciated # Chronic Atrial Fibrillation - Continue home amiodarone, metoprolol - Restart home rivaroxaban # Type II Diabetes Mellitus - Continue correction scale insulin # Hypertension - Continue home amlodipine, losartan, metoprolol # Hypothyroidism # Dyslipidemia # Benign Prostatic Hyperplasia # Bipolar Disorder # Depression - Reconcile home medications once verified Paul Rey M.D.
--- NOTE | 2022-11-12 20:16 | CON ---
Date of Consultation: 11/12/2022 Reason For Consultation: Atrial fibrillation. History Of Present Illness: This is a 77-year-old male with multiple hospitalizations for congestive heart failure exacerbation and has past medical history of CHF, COPD, diabetes, hypertension, dyslip idemia, chronic kidney disease, and coronary artery disease who presented to the emergency room with severe hyperglycemia and respiratory failure symptoms. The patient has atrial fibrillation and appar ently had episode with rapid ventricular response. I evaluated him by bedside. He does not have any significant shortness of breath or chest pain or orthopnea. Past Medical History: As outlined above in the HPI. Medications: Refer to reconciliation sheet for detailed list. Allergies: CAFFEINE AND CODEINE. Social History: He does not smoke or drink. Does not use any drugs. Family History: No premature coronary artery disease or cancer. Review of Systems: All systems reviewed and they were negative except for mentioned in HPI. Physical Examination: Vital Signs: Reviewed. Head And Neck: Pupils are equal and reactive to light. Intact eye movements. No JVD. No cervical lymphadenopathy. Neck is supple. Thyroid is not enlarged. Lungs: Decreased breathing sounds bilaterally. No accessory muscle use or muscle retraction. Heart: Regular. No extra sounds. Abdomen: Soft, nontender. Bowel sounds positive. No organomegaly. No masses or hernia. No rigidi ty or rebound. Extremities: No edema, clubbing, or cyanosis. Intact pulses. Skin: No rash. Neurologic: Alert, awake, and oriented x3. No focal deficits appreciated. Investigations: BUN 18, creatinine 0.94, and hemoglobin is 8.9. Assessment/recommendation: 1.Atrial fibrillation. His heart rate is controlled at the present time. Continues Xarelto and ami odarone as well as Lopressor 25 mg twice a day. Can adjust the Lopressor further for better heart ra te control. 2.Chronic diastolic heart failure. Appears to be euvolemic. Agree with Lasix 40 mg daily. Monitor BUN, creatinine, and electrolytes. Thank you for the consult. SR/MODL Voice ID: [id number] Report ID: [id number]
[2022-11-12] MEDS: RIVAROXABAN 20 MG TABLET PO SCH (20:49)
[2022-11-12] MEDS: MELATONIN 5 MG TABLET PO PRN (20:50)
[2022-11-13] MEDS: HYDRALAZINE HCL 20 MG/ML VIAL IV PRN (00:43)
[2022-11-13] MEDS: IPRATROPIUM BROM 0.5MG/2.5ML NEB SCH ×4 (01:19→19:25)
[2022-11-13 03:51] LABS: Potassium 3.4 mmol/L (3.5-5.1)
[2022-11-13] MEDS: METOPROLOL TAR 50 MG TAB PO SCH ×2 (05:33→17:47)
[2022-11-13] MEDS ORDERED: POTASSIUM CL SA 10 MEQ TAB PO ONE (06:30)
[2022-11-13] MEDS: INSULIN -REGULAR HUMAN 50 UNIT/0.5 ML ML SQ SCH ×4 (07:30→21:00)
[2022-11-13] MEDS: FUROSEMIDE 40 MG TABLET PO SCH (08:25)
[2022-11-13] MEDS: AMLODIPINE 10 MG TAB PO SCH (08:25)
[2022-11-13] MEDS: LOSARTAN POTASSIUM 50 MG TABLET PO SCH (08:26)
[2022-11-13] MEDS: AMIODARONE HCL 200 MG TAB PO SCH ×2 (08:26→21:04)
--- NOTE | 2022-11-13 08:38 | RAD REPORT ---
EXAM DESCRIPTION: CT - Head Brain Wo Cont - 11/13/2022 7:57 am CLINICAL HISTORY: dysarthria COMPARISON: Head Brain Wo Cont dated 11/07/2022; Head Brain Wo Cont dated 11/05/2022; Brain Wo Cont date d 11/08/2022 TECHNIQUE: Noncontrast head CT images ad were obtained without IV contrast. Multiplanar reformats we re generated and reviewed. All CT scans are performed using dose optimization technique as appropriate and may include automated exposure control or mA/KV adjustment according to patient size. FINDINGS: No intracranial hemorrhage, mass, or edema. Midline structures are unremarkable. Normal ventricular caliber for age. Dickens-white matter differentiation is preserved, without evidence of acute infarct. No abnormal extra- axial fluid collections. Patchy periventricular and deep white matter hypodensities, as well as similar ill-defined asymmetric hypodensities along the left basal ganglia, stable in distribution. These are nonspecific, but could reflect chronic small vessel ischemic changes. Subtle left pontine focus of hypoattenuation, stable, possibly of similar etiology, or related to a small remote infarct. Mastoid air cells and visualized portions of the paranasal sinuses are clear. No acute bony findings. IMPRESSION: No evidence of an acute intracranial process. Presumed chronic small vessel ischemic c fernie, stable.
[2022-11-13] MEDS: CIPROFLOXACIN HCL 500 MG TAB PO SCH ×2 (08:54→21:04)
[2022-11-13 13:53] LABS: Potassium 3.4 mmol/L (3.5-5.1)
[2022-11-13 15:45] LABS: Blood Gas Oxyhemoglobin 93.3 % (94-97); Blood O2 Saturation 96.2 % (92-98.5)
--- NOTE | 2022-11-13 17:12 | P.PN ---
Subjective Date of Service: 11/13/22 Chief Complaint: Acute respiratory failure; severe hypoglycemia No acute events overnight. He has intermittent slurred speech throughout the day. He denies any obvious inciting or alleviating factors. No clear medication cause for slurred speech. Discontinued melatonin since his symptoms seem to be worse in the morning. I have offered him transfer for a Neurology consultation; however, both he and his declined transfer. He denies any chest pain, palpitations, or shortness of breath. Review of Systems 10-point ROS is otherwise unremarkable Cardiovascular: Orthopnea Neurological: Change in Speech (dysarthria/slurred speech) Physical Examination - Vital Signs Temperature: 97.6 F Blood Pressure: 163/63 Pulse: 61 Respirations: 16 Pulse Ox (%): 95 - Studies Medications List Reviewed: Yes Assessment And Plan - Plan - Physical Exam General: Alert, In no apparent distress, Oriented x3 HEENT: Atraumatic, EOMI, Sclerae nonicteric Neck: JVD not distended Respiratory: Diminished, Rhonchi/gurgles (scattered, faint) Cardiovascular: Regular rate/rhythm, Normal S1 S2, Edema (trace BLE) Gastrointestinal: Normal bowel sounds, Soft, Non-distended, No tenderness Musculoskeletal: No clubbing Integumentary: No rashes Neurological: Normal speech, Normal strength at 5/5 x4 extr, Sensation intact, Cranial nerves 3-12 intact, Normal affect, Other (intermittent dysarthria) # Acute on Chronic Hypercapnic Respiratory Failure - likely secondary to Acute on Chronic Decompensated Systolic Congestive Heart Failure with Reduced Ejection Fraction +/- Aspiration Pneumonia - improved # Chronic Respiratory Failure secondary to Chronic Obstructive Pulmonary Disease on Home Oxygen (3 L) - Evaluation thus far: - Procalcitonin = 2.07 -> 0.05 - ABG (11/07)= pH 7.34, PCO2 57.7, PO2 92.8 - Chest x-ray (11/11)= "cardiomegaly with possible interstitial edema and bilateral pleural effusions" - Management plan: - Consulted Pulmonary Medicine and spoke with Dr. Almaguer - recommendations appreciated - Consulted Cardiology - recommendations appreciated - Continue furosemide for diuresis - Consulted Respiratory Therapy - Supplemental oxygen to maintain SpO2 > 92% - No longer on BiPAP - Encouraged incentive spirometry # Severe Sepsis likely secondary to Multi-Drug Resistant Pseudomonas Aeruginosa Urinary Tract Infection +/- Aspiration Pneumonia Although currently not meeting sepsis criteria, he previously met criteria based on temperature > 100.4 F, HR > 90 bpm, RR > 20 breaths/min, and WBC > 12,000 and the suspected source is UTI vs pneumonia. Severe sepsis is suspected due to concern for tissue hypoperfusion/organ dysfunction based on acute respiratory failure requiring intubation and coagulopathy (INR > 1.5). - Sepsis order set was initiated - Initial Lactate was 0.7 - Blood cultures drawn - Broad spectrum antibiotics started: Cefepime + Azithromycin -> Ciprofloxacin - In regards to fluids: - 30 mL/kg of IV fluids was not administered given SBP > 90, MAP > 65, lactic acid < 4 # KDIGO Stage I Acute Kidney Injury on Chronic Kidney Disease Stage III due to Cardiorenal Syndrome - resolved - Creatinine = 1.58 -> 1.34 -> 1.60 -> 1.51 -> 1.23 -> 1.06 -> 1.09 -> 0.97 - Urinalysis = 2+ blood, nitrite positive, 2+ leukocyte esterase, 21-50 RBCs, 20-50 WBCs, 20-50 bacteria, 1+ protein - Repeat urinalysis with < 5 RBCs - Diuretics as mentioned above - Monitor creatinine and urine output - If worsening, obtain renal ultrasound - Renally dose medications # Dysarthria - intermittent - Evaluation thus far: - CT head (11/05) = "no acute intracranial abnormality is seen" - CT head (11/07) = "no acute intracranial abnormality. Stable examination since 11/05/2022." - MRI brain (11/08) = "no acute intracranial abnormality. Specifically, no evidence of acute infarct. Moderate chronic small vessel ischemic changes and age advanced cerebral atrophy." - CT head (11/13) = "No evidence of an acute intracranial process. Presumed chronic small vessel ischemic changes, stable." - Management plan: - Consulted Neurology and spoke with Dr. Jane - [place] and unavailable for consult - Tried to consult Dr. Royal, but he is also unavailable for consult - Spoke with ENT to see if there were any potential causes of dysarthria post-intubation - no clear etiology was identified - Continue speech therapy - Offered transfer for Neurology evaluation, but he and his declined - Discontinued melatonin as symptoms seem worse in the morning # Recent Left Tibula/Fibula Fracture s/p Surgery at [facility] - Consulted General Surgery and spoke with Dr. Echavarria - recommendations appreciated # Chronic Atrial Fibrillation - Continue home amiodarone, metoprolol - Restart home rivaroxaban # Type II Diabetes Mellitus - Continue correction scale insulin # Hypertension - Continue home amlodipine, losartan, metoprolol # Hypothyroidism # Dyslipidemia # Benign Prostatic Hyperplasia # Bipolar Disorder # Depression - Reconcile home medications once verified Paul Rey M.D.
--- NOTE | 2022-11-13 19:49 | PN ---
Date of Progress Note: 11/13/2022 Subjective: Seen by bedside. No new complaints. No shortness of breath. Review of Systems: No chest pain, shortness of breath, orthopnea, or cough. No nausea, vomiting, or diarrhea. All othe r systems reviewed and they were negative. Physical Examination: Vital Signs: Reviewed. Head And Neck: Pupils are equal and reactive to light. Intact eye movements. No JVD. No cervical lymphadenopathy. Neck is supple. Thyroid is not enlarged. Lungs: Clear to auscultation bilaterally. No rhonchi, wheezing, or crackles. No accessory muscle u se. Heart: Irregularly irregular. No extra sounds. Abdomen: Soft, nontender. Bowel sounds positive. No organomegaly. No masses or hernia. No rigidi ty or rebound. Extremities: No clubbing or cyanosis. Intact pulses. Skin: No rashes. Neuro: Alert, awake. No acute focal deficits appreciated. Lymph Nodes: No cervical or axillary lymphadenopathy. Investigations: Labs reviewed. Assessment And Plan: 1.Congestive heart failure. Appears to be euvolemic. Continue Lasix by mouth. 2.Atrial fibrillation, rate is controlled. Continue current management. Cardiology will sign off. The patient can follow up as an outpatient. /DAMARIS Voice ID: [id number] Report ID: [id number]
[2022-11-13] MEDS: RIVAROXABAN 20 MG TABLET PO SCH (21:04)
[2022-11-14] MEDS: IPRATROPIUM BROM 0.5MG/2.5ML NEB SCH ×4 (01:30→20:00)
[2022-11-14] MEDS: HYDRALAZINE HCL 20 MG/ML VIAL IV PRN (01:48)
[2022-11-14] MEDS: METOPROLOL TAR 50 MG TAB PO SCH ×2 (05:22→17:24)
[2022-11-14 06:18] VITALS: BMI 35.6
[2022-11-14 06:49] LABS: Potassium 3.5 mmol/L (3.5-5.1)
[2022-11-14] MEDS: INSULIN -REGULAR HUMAN 50 UNIT/0.5 ML ML SQ SCH ×4 (07:30→21:04)
[2022-11-14] MEDS ORDERED: POTASSIUM CL SA 10 MEQ TAB PO ONE (09:00)
[2022-11-14] MEDS: FUROSEMIDE 40 MG TABLET PO SCH (10:15)
[2022-11-14] MEDS: CIPROFLOXACIN HCL 500 MG TAB PO SCH ×2 (10:15→21:03)
[2022-11-14] MEDS: AMLODIPINE 10 MG TAB PO SCH (10:15)
[2022-11-14] MEDS: AMIODARONE HCL 200 MG TAB PO SCH ×2 (10:15→21:04)
[2022-11-14] MEDS: LOSARTAN POTASSIUM 50 MG TABLET PO SCH (10:16)
[2022-11-14] MEDS ORDERED: ALPRAZOLAM 0.25 MG TABLET PO ONE ×2 (15:55→18:19)
--- NOTE | 2022-11-14 16:58 | P.PN ---
Subjective Date of Service: 11/14/22 Chief Complaint: Acute respiratory failure; severe hypoglycemia No acute events overnight. His speech has improved today, but continues to wax/wane. Per discussions with staff, they seem to notice that his systolic blood pressure was in the 120s during one of these episodes. Suspect that he may have transient cerebral hypoperfusion given relative hypotension. Will monitor this closely today. This morning, he denies any headaches, visual disturbances, chest pain, palpitations, or shortness of breath. Review of Systems 10-point ROS is otherwise unremarkable Neurological: Change in Speech (slurred speech) Physical Examination - Vital Signs Temperature: 97.3 F Blood Pressure: 156/64 Pulse: 68 Respirations: 16 Pulse Ox (%): 92 - Studies Medications List Reviewed: Yes Assessment And Plan - Plan - Physical Exam General: Alert, In no apparent distress, Oriented x3 HEENT: Atraumatic, EOMI, Sclerae nonicteric Neck: JVD not distended Respiratory: Diminished, Rhonchi/gurgles (scattered, faint) Cardiovascular: Regular rate/rhythm, Normal S1 S2, Edema (trace BLE) Gastrointestinal: Normal bowel sounds, Soft, Non-distended, No tenderness Musculoskeletal: No clubbing Integumentary: No rashes Neurological: Normal speech, Normal strength at 5/5 x4 extr, Sensation intact, Cranial nerves 3-12 intact, Normal affect, Other (mild dysarthria with slurred speech) # Acute on Chronic Hypercapnic Respiratory Failure - likely secondary to Acute on Chronic Decompensated Systolic Congestive Heart Failure with Reduced Ejection Fraction +/- Aspiration Pneumonia - improved # Chronic Respiratory Failure secondary to Chronic Obstructive Pulmonary Disease on Home Oxygen (3 L) - Evaluation thus far: - Procalcitonin = 2.07 -> 0.05 - ABG (11/07)= pH 7.34, PCO2 57.7, PO2 92.8 - Chest x-ray (11/11)= "cardiomegaly with possible interstitial edema and bilateral pleural effusions" - Management plan: - Consulted Pulmonary Medicine and spoke with Dr. Almaguer - recommendations appreciated - Consulted Cardiology - recommendations appreciated - Continue furosemide for diuresis - Consulted Respiratory Therapy - Supplemental oxygen to maintain SpO2 > 92% - No longer on BiPAP - Encouraged incentive spirometry # Severe Sepsis likely secondary to Multi-Drug Resistant Pseudomonas Aeruginosa Urinary Tract Infection +/- Aspiration Pneumonia Although currently not meeting sepsis criteria, he previously met criteria based on temperature > 100.4 F, HR > 90 bpm, RR > 20 breaths/min, and WBC > 12,000 and the suspected source is UTI vs pneumonia. Severe sepsis is suspected due to concern for tissue hypoperfusion/organ dysfunction based on acute respiratory failure requiring intubation and coagulopathy (INR > 1.5). - Sepsis order set was initiated - Initial Lactate was 0.7 - Blood cultures drawn - Broad spectrum antibiotics started: Cefepime + Azithromycin -> Ciprofloxacin - In regards to fluids: - 30 mL/kg of IV fluids was not administered given SBP > 90, MAP > 65, lactic acid < 4 # KDIGO Stage I Acute Kidney Injury on Chronic Kidney Disease Stage III due to Cardiorenal Syndrome - resolved - Creatinine = 1.58 -> 1.34 -> 1.60 -> 1.51 -> 1.23 -> 1.06 -> 1.09 -> 0.97 - Urinalysis = 2+ blood, nitrite positive, 2+ leukocyte esterase, 21-50 RBCs, 20-50 WBCs, 20-50 bacteria, 1+ protein - Repeat urinalysis with < 5 RBCs - Diuretics as mentioned above - Monitor creatinine and urine output - If worsening, obtain renal ultrasound - Renally dose medications # Dysarthria - intermittent - Evaluation thus far: - CT head (11/05) = "no acute intracranial abnormality is seen" - CT head (11/07) = "no acute intracranial abnormality. Stable examination since 11/05/2022." - MRI brain (11/08) = "no acute intracranial abnormality. Specifically, no evidence of acute infarct. Moderate chronic small vessel ischemic changes and age advanced cerebral atrophy." - CT head (11/13) = "No evidence of an acute intracranial process. Presumed chronic small vessel ischemic changes, stable." - Management plan: - Neurology currently unavailable at our facility - Spoke with ENT to see if there were any potential causes of dysarthria post-intubation - no clear etiology was identified - Continue speech therapy - Offered transfer for Neurology evaluation, but he and his declined - Discontinued melatonin as symptoms seem worse in the morning - Monitor blood pressure and allow for slight hypertension (SBP <150 mmHg) # Recent Left Tibula/Fibula Fracture s/p Surgery at [facility] - Consulted General Surgery and spoke with Dr. Echavarria - recommendations appreciated # Chronic Atrial Fibrillation - Continue home amiodarone, metoprolol - Restart home rivaroxaban # Type II Diabetes Mellitus - Continue correction scale insulin # Hypertension - Continue home amlodipine, losartan, metoprolol # Hypothyroidism # Dyslipidemia # Benign Prostatic Hyperplasia # Bipolar Disorder # Depression - Reconcile home medications once verified Paul Rey M.D.
[2022-11-14] MEDS: BUSPIRONE HCL 5 MG TABLET PO SCH ×2 (18:44→21:03)
[2022-11-14] MEDS: RIVAROXABAN 20 MG TABLET PO SCH (21:03)
[2022-11-14] MEDS: ALPRAZOLAM 0.5 MG TABLET PO PRN (22:16)
[2022-11-15] MEDS: IPRATROPIUM BROM 0.5MG/2.5ML NEB SCH ×2 (02:00→08:30)
[2022-11-15] MEDS: METOPROLOL TAR 50 MG TAB PO SCH (05:27)
[2022-11-15 06:42] LABS: Potassium 3.3 mEq/L (3.5-5.1)
[2022-11-15] MEDS: INSULIN -REGULAR HUMAN 50 UNIT/0.5 ML ML SQ SCH (07:30)
[2022-11-15] MEDS ORDERED: KCL 20 MEQ/100 mL IVPB 20 MEQ/100 ML BAG IV SCH (08:00)
--- NOTE | 2022-11-15 08:39 | P.DS ---
Admission Date: 11/05/22 Discharge Date: 11/15/22 Disposition: TRANSFER TO RETIREMENT Discharge Condition: GOOD Reason for Admission: Acute respiratory failure; severe hypoglycemia Consultations: 1. Cardiology 2. Pulmonology 3. General Surgery Hospital Course: DIAGNOSES: # Acute on Chronic Hypercapnic Respiratory Failure - likely secondary to Acute on Chronic Decompensated Systolic Congestive Heart Failure with Reduced Ejection Fraction +/- Aspiration Pneumonia - improved # Chronic Respiratory Failure secondary to Chronic Obstructive Pulmonary Disease on Home Oxygen (3 L) # Severe Sepsis likely secondary to Multi-Drug Resistant Pseudomonas Aeruginosa Urinary Tract Infection +/- Aspiration Pneumonia # KDIGO Stage I Acute Kidney Injury on Chronic Kidney Disease Stage III due to Cardiorenal Syndrome - resolved # Intermittent Dysarthria, likely due to Benzodiazepine Withdrawal - resolved # 09/04 Blood Cultures positive for Coagulase-Negative Staphylococcus - likely Contaminant # Recent Left Tibula/Fibula Fracture s/p Surgery at [facility] # Chronic Atrial Fibrillation # Type II Diabetes Mellitus # Hypertension # Hypothyroidism # Dyslipidemia # Benign Prostatic Hyperplasia # Bipolar Disorder # Depression HOSPITAL COURSE: Mr. Michael Duncan is a pleasant 77 year old male with a past medical history significant for chronic systolic congestive heart failure, chronic respiratory failure secondary to COPD (3 L), chronic kidney disease stage III, recent left tibula/fibula fracture s/p surgery at [facility], chronic atrial fibrillation, type II diabetes mellitus, hypertension, hypothyroidism, dyslipidemia, benign prostatic hyperplasia, bipolar disorder, and depression who was admitted to the [facility] on 11/05/2022 for altered mental status and acute hypercapnic respiratory failure. He was admitted to the Medicine service and initially was intubated on mechanical ventilation. His initial CT head revealed, "no acute intracranial abnormality is seen." He did well on the ventilator and was extubated on 11/06/2022. Post-extubation, he was noted to have slurred speech and dysarthria, which was concerning for a possible cerebrovascular accident. A repeat CT head revealed, "no acute intracranial abnormality. Stable examination since 11/05/2022." MRI brain revealed, "no acute intracranial abnormality. Specifically, no evidence of acute infarct. Moderate chronic small vessel ischemic changes and age advanced cerebral atrophy." Throughout his hospital stay, his slurred speech/dysarthria would intermittently present. Neurology was unavailable at our facility and transfer was offered; however, he and his declined. Another CT head revealed, "no evidence of an acute intracranial process. Presumed chronic small vessel ischemic changes, stable." He was also noted to have severe sepsis secondary to mult-drug resistant Pseudomonas Aeruginosa urinary tract infection and possible aspiration pneumonia. He was treated with ciprofloxacin based on sensitivities and he demonstrated significant clinical improvement. After further review of his outside records, it became evident that he takes alprazolam 0.5 mg TID at home. When this medication was resumed, his dysarthria completely resolved. This morning, he appeared to be doing well clinically and expressed that he would like to be discharged home to [facility]. On 11/15/2022, he was seen on morning rounds and deemed medically stable for discharge. He was discharged with instructions to schedule follow-up appointments with his PCP (Dr. Garcia), with Cardiology (Dr. Avina), and with General Surgery (Dr. Echavarria). He was given the opportunity to ask questions and reported no further questions. Furthermore, all questions were answered to the best of my ability. A copy of this discharge summary will be sent to the above providers to facilitate continuity of care. Today, I personally spent 35 minutes on his case, of which greater than 50% of the time was spent in patient education, counseling, and coordination of care as described above. - Physical Exam General: Alert, In no apparent distress, Oriented x3 HEENT: Atraumatic, EOMI, Sclerae nonicteric Neck: JVD not distended Respiratory: Diminished, but clear to ausculation bilaterally without any wheezes, rhonchi, or rales Cardiovascular: Regular rate/rhythm, Normal S1 S2, Edema (trace BLE) Gastrointestinal: Normal bowel sounds, Soft, Non-distended, No tenderness Musculoskeletal: No clubbing Integumentary: No rashes Neurological: Normal speech, Equal strength at 5/5 x4 extr (generalized weakness), Sensation intact, Cranial nerves 3-12 intact, Normal affect Vital Signs/Physical Exam: Temp Pulse Resp BP Pulse Ox 97.6 F 60 18 154/55 H 99 11/15/22 04:00 11/15/22 04:00 11/15/22 04:00 11/15/22 04:00 11/15/22 04:00 Laboratory Data at Discharge: WBC 11.70 K/uL (4.3-10.9) H 11/10/22 13:09 Hgb 8.9 g/dL (13.6-17.9) L 11/10/22 13:09 Hct 28.2 % (39.6-49.0) L 11/10/22 13:09 Plt Count 225 K/uL (152-406) 11/10/22 13:09 PT 18.3 SECONDS (9.5-12.5) H 11/05/22 08:00 INR 1.66 11/05/22 08:00 APTT 35.8 SECONDS (24.3-36.9) 11/05/22 08:00 Sodium 135 mEq/L (136-145) L 11/15/22 05:30 Potassium 3.3 mEq/L (3.5-5.1) L 11/15/22 05:30 BUN 11 mg/dL (7-18) 11/15/22 05:30 Creatinine 0.91 mg/dL (0.70-1.30) 11/15/22 05:30 Glucose 160 mg/dL (74-106) H 11/15/22 05:30 Phosphorus 3.3 mg/dL (2.5-4.9) 11/05/22 13:40 Magnesium 1.6 mg/dL (1.6-2.4) 11/11/22 06:25 Total Bilirubin 0.6 mg/dL (0.2-1.0) 11/11/22 06:25 AST 14 U/L (15-37) L 11/11/22 06:25 ALT 23 U/L (16-61) 11/11/22 06:25 Alkaline Phosphatase 66 U/L (45-117) 11/11/22 06:25 Home Medications: Arformoterol Tartrate [Brovana] 1 amp NEB BID 04/04/22 Atorvastatin Calcium [Lipitor*] 10 mg PO BEDTIME 04/04/22 Buspirone HCl [Buspar*] 5 mg PO TID 04/04/22 Divalproex [Depakote Sprinkle*] 625 mg PO BID 04/04/22 Doxepin HCl [Sinequan*] 25 mg PO BEDTIME 04/04/22 Insulin Degludec [Tresiba] 55 unit SQ BEDTIME 04/04/22 Levalbuterol HCl [Xopenex] 1 amp NEB Q6HP PRN 04/04/22 Levothyroxine [Synthroid*] 0.1 mg PO DAILY 04/04/22 Melatonin 5 mg PO BEDTIME 04/04/22 Memantine HCl [Namenda*] 10 mg PO BEDTIME 04/04/22 Polyethyl Gly 3350 [Glycolax*] 17 g PO BID 04/04/22 Potassium Oral Tab [Klor-Con 10 mEq Tab*] 20 meq PO DAILY 04/04/22 Rivaroxaban [Xarelto] 20 mg PO BEDTIME 04/04/22 Venlafaxine HCl 75 mg PO BID 04/04/22 carvediloL [Coreg*] 12.5 mg PO BID 04/04/22 Tamsulosin [Flomax*] 0.4 mg PO BEDTIME 30 Days #30 cap 09/19/22 Hydrocodone Bit/Acetaminophen [[place] 7.5-325 Tablet] 1 each PO Q8HP PRN 10/22/22 Sennosides [Senna] 2 tab PO BID 10/22/22 Sitagliptin Phosphate [Januvia] 100 mg PO DAILY 10/22/22 Timolol Maleate/Pf [Timolol Maleate 0.5% Eye Drop] 1 drop EACH EYE DAILY 10/22/22 Amiodarone HCl [Cordarone*] 200 mg PO BID #60 tab 10/26/22 Furosemide [Lasix*] 20 mg PO BIDL #60 tab 10/26/22 Sodium Chloride Tab [Sodium Chloride*] 1 gm PO BID #60 tab 10/26/22 acetaZOLAMIDE [Acetazolamide] 125 mg PO DAILY #30 tab 10/26/22 ALPRAZolam [Xanax*] 0.5 mg PO TID PRN tab 11/15/22 Amlodipine [Norvasc*] 10 mg PO DAILY tab 11/15/22 Buspirone HCl [Buspar*] 5 mg PO TID tab 11/15/22 Ciprofloxacin HCl [Cipro 500 MG Tablet] 500 mg PO BID 5 Days #10 11/15/22 Losartan Potassium [Cozaar*] 100 mg PO DAILY 11/15/22 Metoprolol Tartrate [Lopressor*] 25 mg PO BID 6AM 6PM tab 11/15/22 New Medications: Ciprofloxacin HCl [Cipro 500 MG Tablet] 500 mg PO BID 5 Days #10 Physician Discharge Instructions: OK TO DC IV AND DC HOME FOLLOW-UP WITH PRIMARY CARE PROVIDER IN 1-2 WEEKS FOLLOW-UP WITH CARDIOLOGY IN 1-2 WEEKS RETURN TO THE ER IF symptoms worsen CALL DR. DIOP AT [phone] IF ANY QUESTIONS REGARDING HOSPITAL STAY. PLEASE CALL THE FLOOR AT [phone] IF ANY MEDICATION OR NURSING QUESTIONS. Diet: AHA Activity: Ad linda Followup: Getachew Echavarria MD [ACTIVE - CAN ADMIT] - 1-2 Weeks Tory Garcia MD [OUTSIDE PHYSICIAN] - 1-2 Weeks Cristian Avina MD [ACTIVE - CAN ADMIT] - Time spent managing pt's care (in minutes): 35
[2022-11-15 08:51] VITALS: BP 138/59; TEMP 97.3
[2022-11-15 08:58] VITALS: O2SAT 92
[2022-11-15] MEDS: CIPROFLOXACIN HCL 500 MG TAB PO SCH (09:57)
[2022-11-15] MEDS: FUROSEMIDE 40 MG TABLET PO SCH (09:58)
[2022-11-15] MEDS: AMIODARONE HCL 200 MG TAB PO SCH (09:58)
[2022-11-15] MEDS: BUSPIRONE HCL 5 MG TABLET PO SCH (09:58)
[2022-11-15] MEDS: LOSARTAN POTASSIUM 50 MG TABLET PO SCH (09:58)
[2022-11-15] MEDS: AMLODIPINE 10 MG TAB PO SCH (09:58)
[2022-11-15] MEDS: ALPRAZOLAM 0.5 MG TABLET PO PRN (10:02)
== END 2022-11-15 12:33 | DRG 208 ==
LOC: ER 07:43 → ERHOLD 12:13 → 3RD-ICU 22:41 → 2ND 11-10 00:28
PROVIDERS: ADMIT Hospitalist; ATTEND Internal Medicine
PROC: 5A1945Z Respiratory Ventilation, 24-96 Consecutive Hours (ICD-10-PCS; principal; 2022-11-05)
PROC: 0BH17EZ Insertion of Endotracheal Airway into Trachea, Via Natural or Artificial Opening (ICD-10-PCS; 2022-11-05)
PROC: 02HV33Z Insertion of Infusion Device into Superior Vena Cava, Percutaneous Approach (ICD-10-PCS; 2022-11-05)
DX: J96.01 Acute respiratory failure with hypoxia (principal); A41.52 Sepsis due to Pseudomonas; I50.23 Acute on chronic systolic (congestive) heart failure; J69.0 Pneumonitis due to inhalation of food and vomit; R65.20 Severe sepsis without septic shock; E87.3 Alkalosis; J44.1 Chronic obstructive pulmonary disease with (acute) exacerbation; N39.0 Urinary tract infection, site not specified; Z16.24 Resistance to multiple antibiotics; N17.9 Acute kidney failure, unspecified; I13.0 Hypertensive heart and chronic kidney disease with heart failure and stage 1 through stage 4 chronic kidney disease, or unspecified chronic kidney disease; I48.20 Chronic atrial fibrillation, unspecified; J96.02 Acute respiratory failure with hypercapnia; N18.30 Chronic kidney disease, stage 3 unspecified; D63.1 Anemia in chronic kidney disease; E78.5 Hyperlipidemia, unspecified; N40.0 Benign prostatic hyperplasia without lower urinary tract symptoms; N27.9 Small kidney, unspecified; F31.9 Bipolar disorder, unspecified; I25.10 Atherosclerotic heart disease of native coronary artery without angina pectoris; S82.402D Unspecified fracture of shaft of left fibula, subsequent encounter for closed fracture with routine healing; R31.29 Other microscopic hematuria; R73.9 Hyperglycemia, unspecified; Z66 Do not resuscitate; Z88.5 Allergy status to narcotic agent; Z78.1 Physical restraint status; Z95.5 Presence of coronary angioplasty implant and graft; Z79.4 Long term (current) use of insulin; Z99.81 Dependence on supplemental oxygen; Z91.018 Allergy to other foods; Z79.890 Hormone replacement therapy; Z79.899 Other long term (current) drug therapy; Z20.822 Contact with and (suspected) exposure to COVID-19
CPT/HCPCS: 31500; 36415; 70450; 70551; 71045; 74018; 74230; 80048; 80053; 81001; 81003; 81015; 82805; 82947; 83605; 83735; 83880; 84100; 84132; 84145; 84439; 84443; 84484; 85025; 85610; 85730; 87040; 87077; 87086; 87088; 87186; 87205; 87811; 92526; 92610; 92611; 93005; 94002; 94003; 94660; 94760; 99291; 99292; J0360; J0692; J0744; J1650; J1815; J1940; J2704; J2920; J3480; J7042; J7050; J7644; P9047; U0003